=== PATIENT | male | born 1960 | race Caucasian/White ===

== ENCOUNTER 2023-06-16 00:16 | Emergency (ER) | payer OTHER, SELFPAY ==
[2023-06-16 00:21] VITALS: BP 140/71; PULSE 81; RESP 18; TEMP 36.7; O2SAT 99; BMI 43.9
--- NOTE | 2023-06-16 00:41 | ED.GENADUL1 ---
HPI - General Adult General Chief complaint: Upper Respiratory Infection Stated complaint: cough chest pain fall last week Time Seen by Provider: 06/16/23 00:20 Source: patient Mode of arrival: walk-in History of Present Illness HPI narrative: Patient fell last week and his work is requiring a note okaying him to go back to work. He did not hit his head or lose consciousness. He used he right wrist to break his fall and is using the right hand and wrist normally. His only complaint is a mild cough that started a few days ago. 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 Related Data Home Medications Medication Instructions Recorded Confirmed glimepiride 2 mg tablet 2 mg PO DAILY 06/16/23 06/16/23 meclizine 25 mg tablet 25 mg PO TID 06/16/23 06/16/23 metformin 1,000 mg tablet 1,000 mg PO DAILY 06/16/23 06/16/23 Allergies Allergy/AdvReac Type Severity Reaction Status Date / Time No Known Drug Allergies Allergy Verified 06/16/23 00:31 Exam Narrative Exam Narrative: Nurses notes and vital signs reviewed and patient is not hypoxic. afebrile General: Well-appearing and in no apparent distress. Skin: Warm, dry, no pallor noted. Head: Normocephalic, atraumatic. Neck: Supple, non-tender. no cervical lymphadenopathy Eye: Pupils are equal, round and EOMI. No scleral icterus. Ears, Nose, Mouth, and Throat: TM are clear, mild nasal mucosal hypertrophy. Oral mucosa is moist, no posterior oropharynx erythema, uvula is mid-line Cardiovascular: Regular Rate and Rhythm without murmur, gallop or rub. Respiratory: No accessory muscle use or respiratory distress. Lungs are clear to auscultation, no wheezing, rales or rhonchi Chest Wall: no tenderness Back: No midline thoracic or lumbar vertebral tenderness. No CVA tenderness Musculoskeletal: normal ROM, no calf or popliteal tenderness, no lower extremity edema/swelling GI: Abdomen is soft, non-distended. Normal bowel sounds. No tenderness to palpation. No rebound, guarding, or rigidity noted. Neurological: A&O x4. No cranial nerve dysfunction observed. No truncal ataxia. Moves all extremities. Sensation intact. Psychiatric: Cooperative and interactive. Normal mood and affect. Constitutional Vital Signs, click to edit/add: Last Vital Signs Temp 98.1 F 06/16/23 00:21 Pulse 81 06/16/23 00:21 Resp 18 06/16/23 00:21 BP 140/71 06/16/23 00:21 Pulse Ox 99 06/16/23 00:21 O2 Del Method Room Air 06/16/23 00:21 Course Vital Signs Vital signs: Vital Signs Temperature 98.1 F 06/16/23 00:21 Pulse Rate 81 06/16/23 00:21 Respiratory Rate 18 06/16/23 00:21 Blood Pressure 140/71 06/16/23 00:21 Pulse Oximetry 99 06/16/23 00:21 Oxygen Delivery Method Room Air 06/16/23 00:21 Temperature 98.1 F 06/16/23 00:21 Pulse Rate 81 06/16/23 00:21 Respiratory Rate 18 06/16/23 00:21 Blood Pressure 140/71 06/16/23 00:21 Pulse Oximetry 99 06/16/23 00:21 Oxygen Delivery Method Room Air 06/16/23 00:21 Medical Decision Making MDM Narrative Medical decision making narrative: patient has mild upper respiratory infection symptoms. He wants to take the Mucinex that he artery bottom and I'm okay with that. He does not have any findings consistent with worrisome infection. He also does not have any sign of worrisome injury. I cleared him to go back to work. Discharge Plan Discharge Chief Complaint: Upper Respiratory Infection Clinical Impression: Upper respiratory infection Patient Disposition: Home, Self-Care Time of Disposition Decision: 00:40 Prescriptions / Home Meds: No Action glimepiride 2 mg tablet 2 mg PO DAILY meclizine 25 mg tablet 25 mg PO TID metformin 1,000 mg tablet 1,000 mg PO DAILY Instructions: Upper Respiratory Infection (ED) Stand Alone Forms: Portal Instructions Referrals: MADELEINE MARCELINO [Primary Care Provider] - 1 week
--- NOTE | 2023-06-16 00:47 | PC.NURSE ---
patient c/o dry cough, states he gets it every year around this time. would like something to help
== END 2023-06-16 01:06 | disposition home or self-care (01) ==
PROVIDERS: Emergency Provider Emergency Medicine
DX: J06.9 Acute upper respiratory infection, unspecified (principal); Z79.899 Other long term (current) drug therapy; Z79.84 Long term (current) use of oral hypoglycemic drugs
CPT/HCPCS: 99281

== ENCOUNTER 2023-07-16 20:22 | Emergency (ER) | payer OTHER, SELFPAY ==
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
[2023-07-16 20:34] VITALS: BP 133/76; PULSE 89; RESP 18; TEMP 36.6; O2SAT 95; BMI 41.8
--- NOTE | 2023-07-16 21:43 | PC.NURSE ---
Bilateral legs discolored left is red, pulses palpated. Right calf measured 18 1/4 inches left measured 18 inches.
--- NOTE | 2023-07-16 21:46 | PC.NURSE ---
Denies pain at this time.
--- NOTE | 2023-07-16 21:48 | PC.NURSE ---
Small scabed woound posterior lower left leg with scant drainge
--- NOTE | 2023-07-16 22:14 | ED_ITS ---
HPI - Extremity Problem General Chief complaint: Extremity Problem, Nontraumatic Stated complaint: LE PAIN Time Seen by Provider: 07/16/23 20:34 Source: patient Mode of arrival: walk-in Limitations: no limitations History of Present Illness HPI Narrative: This 62-year-old male with a history of diabetes and peripheral vascular disease presents for evaluation of a draining wound from the back of his left lower leg. The patient states at times his legs swell up and then they open up and drain. He does not have any marked lower extremity edema but does have a draining wound from the posterior left calf. He denies any fever at this time but states he had a fever a couple days ago. He is not currently on any antibiotics. He has no chest pain or shortness of breath. He states his glucose has been in the normal range. Related Data Home Medications Medication Instructions Recorded Confirmed glimepiride 2 mg tablet 2 mg PO DAILY 06/16/23 06/16/23 meclizine 25 mg tablet 25 mg PO TID 06/16/23 06/16/23 metformin 1,000 mg tablet 1,000 mg PO DAILY 06/16/23 06/16/23 Allergies Allergy/AdvReac Type Severity Reaction Status Date / Time No Known Drug Allergies Allergy Verified 07/16/23 20:38 Review of Systems ROS Status of ROS 10 or more systems reviewed and unremark able except as noted in history and below Exam Narrative Exam Narrative: Nurses note and vital signs reviewed and patient is not hypoxic. General: Alert, nontoxic, overweight male resting comfortably on the stretcher Skin: Warm, dry, no pallor noted. See discussion of lower extremities in musculoskeletal section Head: Normocephalic, atraumatic Eye: Normal conjunctiva, no drainage, EOMI. PERRL Ears, Nose, Mouth, and Throat: oral mucosa is moist. Nares patent. Cardiovascular: Regular Rate and Rhythm S1S2, Respiratory: Patient is in no distress, no accessory muscle use, lungs are clear to auscultation, no wheezing, rales or rhonchi Back: non-tender, no CVA tenderness bilaterally to percussion. GI: Normal bowel sounds, no tenderness to palpation, no masses appreciated. No rebound, guarding, or rigidity noted. Musculoskeletal: There Is a large amount of peeling skin on the posterior lower leg. There is an open shallow-based ulcer on the posterior aspect of the left calf with a small amount of drainage noted. Feet are warm and pink. Neurological: A&O x4, normal speech Psychiatric: Cooperative Constitutional Vital Signs, click to edit/add: Last Vital Signs Temp 98 F 07/16/23 20:34 Pulse 74 07/16/23 23:23 Resp 16 07/16/23 23:23 BP 131/80 07/16/23 23:23 Pulse Ox 97 07/16/23 23:23 O2 Del Method Room Air 07/16/23 23:23 Course Vital Signs Vital signs: Vital Signs Temperature 98 F 07/16/23 20:34 Pulse Rate 89 07/16/23 20:34 Respiratory Rate 18 07/16/23 20:34 Blood Pressure 133/76 07/16/23 20:34 Pulse Oximetry 95 07/16/23 20:34 Oxygen Delivery Method Room Air 07/16/23 20:34 Temperature 98 F 07/16/23 20:34 Pulse Rate 74 07/16/23 23:23 Respiratory Rate 16 07/16/23 23:23 Blood Pressure 131/80 07/16/23 23:23 Pulse Oximetry 97 07/16/23 23:23 Oxygen Delivery Method Room Air 07/16/23 23:23 MDM - Extremity (Nontraumatic) MDM Narrative Medical decision making narrative: This 62-year-old male with a history of diabetes and peripheral edema presents for evaluation of drainage from the posterior aspect of his left leg. The patient states that his legs swell up and break open and drain. He has been having some drainage from the left leg for the past several days. He has been told in the past that he has severe peripheral vascular disease. He states his sugars have not been abnormal. In the emergency department he is eating Fritos. He denies any chest pain or shortness of breath. There was an open area of skin that I would not qualify as an abscess on the posterior aspect of the left leg. This was cultured, the leg was cleaned and a sterile dressing was placed by the nursing staff. The patient was given IV Unasyn in the emergency department and routine labs are ordered. His white count is mildly elevated at 12. Glucose is elevated at 314. The remainder of his labs are normal including a lactic acid. BLood cultures and wound cultures are pending. He will be referred to the wound clinic at this hospital and referred to Dr Villareal, medicine gate person as his PCP recently stopped seeing patients. Lab Data Labs: Lab Results 07/16/23 Range/Units 21:58 WBC 12.2 H (4.0-11.0) 10^3/uL RBC 4.86 (4.70-6.10) 10^6/uL Hgb 15.5 (14.0-18.0) g/dL Hct 47.1 (42.0-54.0) % MCV 96.9 H (80.0-94.0) fL MCH 31.9 (25.9-34.0) pg MCHC 32.9 (29.9-35.2) g/dL RDW 14.3 (11.0-15.0) % Plt Count 315 (150-450) 10^3/uL MPV 10.7 (9.5-13.5) fL Neut % (Auto) 68.3 (43.0-75.0) % Lymph % (Auto) 20.0 L (20.5-60.0) % Dickey % (Auto) 8.3 (1.7-12.0) % Eos % (Auto) 2.2 (0.9-7.0) % Baso % (Auto) 0.5 (0.2-2.0) % Neut # (Auto) 8.3 H (1.4-6.5) 10^3/uL Lymph # (Auto) 2.4 (1.2-3.8) 10^3/uL Dickey # (Auto) 1.0 H (0.3-0.8) 10^3/uL Eos # (Auto) 0.3 (0.0-0.7) 10^3/uL Baso # (Auto) 0.1 (0.0-0.1) 10^3/uL Abs Immat Gran (auto) 0.08 H (0.00-0.03) 10^3/uL Imm/Tot Granulo (auto) 0.7 H (0.0-0.5) % Sodium 133 L (136-145) mmol/L Potassium 4.0 (3.5-5.1) mmol/L Chloride 98 (98-107) mmol/L Carbon Dioxide 29.1 (21.0-32.0) mmol/L Anion Gap 9.9 BUN 16.0 (7.0-18.0) mg/dL Creatinine 1.07 (0.70-1.30) mg/dL Est GFR ( Amer) >60 (>=60) Est GFR (Non-Af Amer) >60 (>=60) BUN/Creatinine Ratio 15.0 Glucose 314 H (74-106) mg/dL Lactate 1.6 (0.4-2.0) mmol/L Calcium 10.0 (8.5-10.1) mg/dL Total Bilirubin 0.5 (0.2-1.0) mg/dL AST 10 L (15-37) U/L ALT 21 (16-63) U/L Alkaline Phosphatase 92 (46-116) U/L Total Protein 6.9 (6.4-8.2) g/dL Albumin 2.6 L (3.4-5.0) g/dL Globulin 4.3 g/dL Albumin/Globulin Ratio 0.6 Discharge Plan Discharge Chief Complaint: Extremity Problem, Nontraumatic Clinical Impression: Cellulitis of left leg, Hyperglycemia, Edema, peripheral Patient Disposition: Home, Self-Care Time of Disposition Decision: 23:35 Condition: Good Prescriptions / Home Meds: No Action glimepiride 2 mg tablet 2 mg PO DAILY meclizine 25 mg tablet 25 mg PO TID metformin 1,000 mg tablet 1,000 mg PO DAILY Instructions: Cellulitis (ED), Leg Edema (ED), Diabetic Hyperglycemia (ED) Stand Alone Forms: Portal Instructions Referrals: Physician,Non-Staff, [Primary Care Provider] - 1 week Shaikh Villareal MD [Physician] - 1 week (Lower extremity edema and cellulitis)
[2023-07-16 22:21] LABS: Basophils Absolute Auto 0.1 10^3/uL (0.0-0.1); Basophils Percent Auto 0.5 % (0.2-2.0); Eosinophils Absolute Auto 0.3 10^3/uL (0.0-0.7); Eosinophils Percent Auto 2.2 % (0.9-7.0); Hematocrit 47.1 % (42.0-54.0); Hemoglobin 15.5 g/dL (14.0-18.0); Immature Granulocytes Abs Auto 0.08 10^3/uL (0.00-0.03); Immature Granulocytes Pct Auto 0.7 % (0.0-0.5); Lymphocytes Absolute Auto 2.4 10^3/uL (1.2-3.8); Mean Corpuscular HGB Conc 32.9 g/dL (29.9-35.2); Mean Corpuscular Hemoglobin 31.9 pg (25.9-34.0); Mean Corpuscular Volume 96.9 fL (80.0-94.0); Mean Platelet Volume 10.7 fL (9.5-13.5); Monocytes Percent Auto 8.3 % (1.7-12.0); Neutrophils Absolute Auto 8.3 10^3/uL (1.4-6.5); Neutrophils Percent Auto 68.3 % (43.0-75.0); Platelet Count 315 10^3/uL (150-450); Red Blood Count 4.86 10^6/uL (4.70-6.10); Red Cell Distribution Width 14.3 % (11.0-15.0); White Blood Count 12.2 10^3/uL (4.0-11.0)
[2023-07-16 22:36] LABS: Alanine Aminotransferase 21 U/L (16-63); Albumin Globulin Ratio 0.6; Albumin Level 2.6 g/dL (3.4-5.0); Alkaline Phosphatase 92 U/L (46-116); Anion Gap 9.9; Aspartate Amino Transferase 10 U/L (15-37); Bilirubin Total 0.5 mg/dL (0.2-1.0); Carbon Dioxide 29.1 mmol/L (21.0-32.0); Chloride 98 mmol/L (98-107); Estimated GFR (African America >60 (>=60); Estimated GFR (Non-African Ame >60 (>=60); Globulin 4.3 g/dL; Glucose 314 mg/dL (74-106); Sodium 133 mmol/L (136-145); Total Protein 6.9 g/dL (6.4-8.2)
[2023-07-16] MEDS: AMPICILLIN SODIUM/SULBACTAM NA 3 GM in 0.9 % SODIUM CHLORIDE 100 ML IV (22:37)
[2023-07-16 22:39] LABS: Lactate/Lactic Acid 1.6 mmol/L (0.4-2.0)
[2023-07-16 23:23] VITALS: BP 131/80; PULSE 74; RESP 16; O2SAT 97
== END 2023-07-16 23:56 | disposition home or self-care (01) ==
PROVIDERS: Emergency Provider Emergency Medicine
DX: L03.116 Cellulitis of left lower limb (principal); E11.51 Type 2 diabetes mellitus with diabetic peripheral angiopathy without gangrene; Z79.84 Long term (current) use of oral hypoglycemic drugs; E11.65 Type 2 diabetes mellitus with hyperglycemia; R60.0 Localized edema
CPT/HCPCS: 36415; 80053; 83605; 85025; 87070; 87150; 87186; 96365; 99285

== ENCOUNTER 2024-03-24 11:00 | Inpatient (IN) | payer OTHER, SELFPAY ==
[2024-03-24] VITALS (10 sets, daily range): BP systolic 103–143; BP diastolic 66–84; PULSE 85–102; TEMP 36.7–36.9; O2SAT 80–100; BMI 41.8; BMI 39.4
--- NOTE | 2024-03-24 11:15 | ECG_ITS ---
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
--- NOTE | 2024-03-24 11:15 | XR_ITS ---
The [address] [address] Patient Name: TYLER SMITH MRN: [id number] date: 1960 Sex: M Assigned Patient Location: ER Current Patient Location: ED.MAIN Accession/Order Number: [id number] Exam Date: 03/24/2024 11:40 Report Date: 03/24/2024 12:10 At the request of: KENIA PLUNKETT Procedure: XR chest 1V EXAMINATION: XR chest 1V HISTORY: sob COMPARISON: XR chest 10/04/2016 FINDINGS: LUNGS: Minimal haziness and stranding within lung bases. VASCULATURE: No increased pulmonary vasculature. PLEURA: No pneumothorax, effusion, or pleural thickening. CARDIAC: No cardiomegaly or cardiac silhouette abnormality. MEDIASTINUM: No visible mass or adenopathy. BONES: No fracture or visible bone lesion. OTHER: Negative. XR/XR chest 1V IMPRESSION: 1. Trace amount of bibasilar infiltrates versus atelectasis. Electronically authenticated by: ARIC DODSON Date: 03/24/2024 12:10
--- NOTE | 2024-03-24 11:15 | XR_ITS ---
The [address] [address] Patient Name: TYLER SMITH MRN: [id number] date: 1960 Sex: M Assigned Patient Location: ER Current Patient Location: ER Accession/Order Number: [id number] Exam Date: 03/24/2024 11:40 Report Date: 03/24/2024 12:13 At the request of: KENIA PLUNKETT Procedure: XR foot RT min 3V PROCEDURE: XR foot RT min 3V HISTORY: infection ; first digit pain for one week; no known injury COMPARISON: None. FINDINGS: BONES:No fracture, acute abnormality, or significant arthropathy. SOFT TISSUES:Soft tissue swelling of the foot. Suspected skin surface defect medial to the first metatarsophalangeal joint. EFFUSION:None visible. OTHER: Negative. XR/XR foot RT min 3V IMPRESSION: 1. No acute bone abnormality or significant degenerative joint disease. 2. Prominent soft tissue swelling with foot and suspected ulcer medial to the first metatarsophalangeal joint. No underlying bone changes to suggest osteomyelitis. Electronically authenticated by: ARIC DODSON Date: 03/24/2024 12:13
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
--- NOTE | 2024-03-24 11:31 | US_ITS ---
The [address] [address] Patient Name: TYLER SMITH MRN: [id number] date: 1960 Sex: M Assigned Patient Location: [place] Current Patient Location: [place] Accession/Order Number: [id number] Exam Date: 03/24/2024 15:00 Report Date: 03/24/2024 17:08 At the request of: KENIA PLUNKETT Procedure: US venous doppler LE BI EXAM: US venous doppler LE BI HISTORY: swelling COMPARISON: None. TECHNIQUE: Multiple sonographic images of the deep veins of both lower extremities were obtained, supplemented with Doppler. FINDINGS: The deep veins are relatively well-visualized the groin to the mid calf. No filling defect is identified to indicate a thrombus. There is normal compression augmentation to flow bilaterally. US/US venous doppler LE BI IMPRESSION: There is no direct or indirect evidence of deep vein thrombosis in the lower extremities at this time. Electronically authenticated by: CURT GOMEZ Date: 03/24/2024 17:08
[2024-03-24] MEDS: 0.9 % SODIUM CHLORIDE 500 ML IV (11:33)
[2024-03-24] MEDS: KETOROLAC TROMETHAMINE 30 MG/ML VIAL 15 MG IVP (11:33)
[2024-03-24 11:37] LABS: Hematocrit 54.6 % (42.0-54.0); Hemoglobin 18.5 g/dL (14.0-18.0); Mean Corpuscular HGB Conc 33.9 g/dL (29.9-35.2); Mean Corpuscular Hemoglobin 31.9 pg (25.9-34.0); Mean Corpuscular Volume 94.1 fL (80.0-94.0); Mean Platelet Volume 11.3 fL (9.5-13.5); Platelet Count 227 10^3/uL (150-450); Red Cell Distribution Width 14.2 % (11.0-15.0); White Blood Count 21.5 10^3/uL (4.0-11.0)
[2024-03-24 11:53] LABS: INR 1.07; Prothrombin Time 11.3 sec (9.0-11.6)
[2024-03-24] MEDS: VANCOMYCIN HCL 2,000 MG in 0.9 % SODIUM CHLORIDE 500 ML 250 MG IV (11:55)
[2024-03-24 11:57] LABS: Band Neutrophils Absolute 0.9 10^3/uL (0.0-0.3); Lymphocytes Absolute Manual 1.07 10^3/uL (1.20-3.80); Monocytes Absolute Manual 3.22 10^3/uL (0.30-0.80); Segmented Neut Absolute Manual 16.34 10^3/uL (1.4-6.5)
[2024-03-24 12:15] LABS: Lactate/Lactic Acid 1.3 mmol/L (0.4-2.0)
--- NOTE | 2024-03-24 12:15 | ED_ITS ---
HPI HPI - General Adult General Chief complaint: Extremity Problem, Nontraumatic Stated complaint: LOWER RIGHT EXTREMITY PAIN, SWELLING Time Seen by Provider: 03/24/24 11:01 Source: patient Mode of arrival: walk-in Limitations: no limitations History of Present Illness HPI narrative: Patient presents ED complaining of right foot pain and redness. He said he spiked a fever on Friday and he has been having chills. He said he noticed that his right foot blew out Over the weekend and he thought it was from the fever. He is diabetic. She has not seen a doctor in a while since his doctor retired. He is taking his metformin but he is supposed to be on other medications that he is not taking. He is a smoker and has chronic shortness of breath although he came in very winded. He reports pain in the foot and just wants us to fix his foot. He was upset when I told him we would need to do more testing and further investigation because his foot looks very bad and he is at risk for losing his foot. He does also have chronic vascular changes and chronic skin changes on the left foot. He denies nausea vomiting or abdominal pain Related Data Home Medications ?Medication ?Instructions ?Recorded ?Confirmed glimepiride 2 mg tablet 2 mg PO DAILY 06/16/23 03/24/24 meclizine 25 mg tablet 25 mg PO TID 06/16/23 03/24/24 metformin 1,000 mg tablet 1,000 mg PO DAILY 06/16/23 03/24/24 Allergies Allergy/AdvReac Type Severity Reaction Status Date / Time No Known Drug Allergies Allergy Verified 03/24/24 11:06 Opioid HPI Opioid Management Most Recent Opioid Data: Last Pain Scale 0 07/16/23 21:46 Review of Systems ROS Status of ROS 10 or more systems reviewed and unremark able except as noted in history and below Exam Narrative Exam Narrative: Time Seen: [] Vital Signs: [Per nurse's notes.] General: [Alert] Skin: [Warm, dry, Erythema in the right lower extremity from foot to knee. Red hot tender swollen. Normal distal pulses. Large area of ulceration around the first metatarsal joint Head: [Normocephalic, atraumatic.] Neck: [Supple, trachea midline.] Eye: [Pupils are equal, round and reactive to light, extraocular movements are intact, normal conjunctiva.] Ears, nose, mouth and throat: oral mucosa moist. Cardiovascular: [Regular rate and rhythm, no murmur.] Respiratory: Inspiratory expiratory wheezing bilaterally With tachypnea and mild respiratory distress Chest wall: [No tenderness, no deformity.] Gastrointestinal: [Obese,Soft, nontender, non distended, normal bowel sounds.] MSK: 5 out of 5 muscle strength x 4 extremities. Bilateral lower extremity discoloration consistent with vascular changes as well as cellulitis on the right with wound ulceration in the right metatarsal Psychiatric: Agitated, slightly uncooperative, angry Neurological: [Alert and oriented to person, place, time, and situation, no focal neurological deficit observed.] Constitutional Vital Signs, click to edit/add: Last Vital Signs Temp 98.1 F 03/24/24 11:06 Pulse 85 03/24/24 13:07 Resp 18 03/24/24 13:07 BP 120/82 03/24/24 13:07 Pulse Ox 92 L 03/24/24 13:07 O2 Del Method Room Air 03/24/24 12:09 O2 Flow Rate 2 03/24/24 13:07 Course Vital Signs Vital signs: Vital Signs Temperature 98.1 F 03/24/24 11:06 Pulse Rate 102 H 03/24/24 11:06 Respiratory Rate 24 H 03/24/24 11:06 Blood Pressure 121/84 03/24/24 11:06 Pulse Oximetry 92 L 03/24/24 11:06 Oxygen Delivery Method Room Air 03/24/24 11:06 Temperature 98.1 F 03/24/24 11:06 Pulse Rate 85 03/24/24 13:07 Respiratory Rate 18 03/24/24 13:07 Blood Pressure 120/82 03/24/24 13:07 Pulse Oximetry 92 L 03/24/24 13:07 Oxygen Delivery Method Room Air 03/24/24 12:09 Oxygen Delivery Flow Rate 2 03/24/24 13:07 Medical Decision Making MDM Narrative Medical decision making narrative: Patient has an ulcerated wound to the right foot with extensive cellulitis. Patient will be admitted to the hospital for IV antibiotics and podiatry consultation. Patient is diabetic and is uncontrolled at this time. He has a white blood cell count of 21. Lactate is normal therefore no sepsis at this time. I spoke to Dr. Lynn who is comfortable with care plan to admit the patient for further care for his cellulitis and possible surgical debridement of the foot with Podiatry consultation. Patient is comfortable with care plan for admission Differential Diagnosis Differential Diagnosis: Cellulitis osteomyelitis DVT Medical Records Medical records reviewed: Yes I reviewed the patient's medical records Lab Data Lab results reviewed: Yes I reviewed the patient's lab results Labs: Lab Results 03/24/24 Range/Units 11:15 WBC 21.5 H (4.0-11.0) 10^3/uL RBC 5.80 (4.70-6.10) 10^6/uL Hgb 18.5 H (14.0-18.0) g/dL Hct 54.6 H (42.0-54.0) % MCV 94.1 H (80.0-94.0) fL MCH 31.9 (25.9-34.0) pg MCHC 33.9 (29.9-35.2) g/dL RDW 14.2 (11.0-15.0) % Plt Count 227 (150-450) 10^3/uL MPV 11.3 (9.5-13.5) fL Seg Neuts % (Manual) 76.0 H (43.0-75.0) Band Neutrophils % 4.0 (0-5) % Lymphocytes % (Manual) 5.0 L (20.5-60.0) % Monocytes % (Manual) 15.0 H (1.7-12.0) % Eosinophils % (Manual) 0.0 L (0.9-7.0) % Basophils % (Manual) 0.0 L (0.2-2.0) % Neutrophils # (Manual) 16.34 H (1.4-6.5) 10^3/uL Band Neutrophils # 0.9 H (0.0-0.3) 10^3/uL Lymphocytes # (Manual) 1.07 L (1.20-3.80) 10^3/uL Monocytes # (Manual) 3.22 H (0.30-0.80) 10^3/uL Eosinophils # (Manual) 0.00 (0.00-0.70) 10^3/uL Basophils # (Manual) 0.00 (0.00-0.10) 10^3/uL PT 11.3 (9.0-11.6) sec INR 1.07 Sodium 131 L (136-145) mmol/L Potassium 4.2 (3.5-5.1) mmol/L Chloride 93 L (98-107) mmol/L Carbon Dioxide 25.5 (21.0-32.0) mmol/L Anion Gap 16.7 BUN 18.0 (7.0-18.0) mg/dL Creatinine 1.10 (0.70-1.30) mg/dL Est GFR ( Amer) >60 (>=60) Est GFR (Non-Af Amer) >60 (>=60) BUN/Creatinine Ratio 16.4 Glucose 381 H (74-106) mg/dL Lactate 1.3 (0.4-2.0) mmol/L Calcium 10.1 (8.5-10.1) mg/dL Total Bilirubin 2.4 H (0.2-1.0) mg/dL AST 16 (15-37) U/L ALT 18 (16-63) U/L Alkaline Phosphatase 114 (46-116) U/L Troponin I High Sens 4.9 (4.0-76.1) pg/mL NT-Pro-B Natriuret Pep 674.0 (<=900.0) pg/mL Total Protein 7.4 (6.4-8.2) g/dL Albumin 2.3 L (3.4-5.0) g/dL Globulin 5.1 g/dL Albumin/Globulin Ratio 0.5 Imaging Data Chest x-ray: Radiologist's impression: ITS Impressions Chest X-Ray 03/24/24 11:15 IMPRESSION: 1. Trace amount of bibasilar infiltrates versus atelectasis. Electronically authenticated by: ARIC DODSON Date: 03/24/2024 12:10 Foot X-Ray 03/24/24 11:15 IMPRESSION: 1. No acute bone abnormality or significant degenerative joint disease. 2. Prominent soft tissue swelling with foot and suspected ulcer medial to the first metatarsophalangeal joint. No underlying bone changes to suggest osteomyelitis. Electronically authenticated by: ARIC DODSON Date: 03/24/2024 12:13 ECG Data Attestation: I personally reviewed and interpreted this ECG as follows: Interpretation: EKG INTERPRETATION Time: []1124 Rate: []95 Rhythm: _ []Normal sinus rhythm ST segments: _ []No acute ST elevation or depression T waves: _ [] Ectopy: _ [] P wave/WA interval: _ [] QRS interval: _ [] QT interval: _ [] Comparison: _ [] Comparison EKG date: [] Performed by: [self] Discharge Plan Discharge Chief Complaint: Extremity Problem, Nontraumatic Clinical Impression: Cellulitis Patient Disposition: Admitted As Inpatient Time of Disposition Decision: 13:22 Condition: Fair Prescriptions / Home Meds: No Action glimepiride 2 mg tablet 2 mg PO DAILY meclizine 25 mg tablet 25 mg PO TID metformin 1,000 mg tablet 1,000 mg PO DAILY Print Language: Faroese Referrals: Physician,Non-Staff, MD [Primary Care Provider] - 1 week
[2024-03-24 12:19] LABS: Alanine Aminotransferase 18 U/L (16-63); Albumin Globulin Ratio 0.5; Alkaline Phosphatase 114 U/L (46-116); Aspartate Amino Transferase 16 U/L (15-37); BUN Creatinine Ratio 16.4; Bilirubin Total 2.4 mg/dL (0.2-1.0); Calcium 10.1 mg/dL (8.5-10.1); Chloride 93 mmol/L (98-107); Estimated GFR (African America >60 (>=60); Estimated GFR (Non-African Ame >60 (>=60); Globulin 5.1 g/dL; Glucose 381 mg/dL (74-106); Potassium 4.2 mmol/L (3.5-5.1); Sodium 131 mmol/L (136-145); Total Protein 7.4 g/dL (6.4-8.2); Troponin I High Sensitivity 4.9 pg/mL (4.0-76.1)
[2024-03-24 12:28] LABS: Albumin Level 2.3 g/dL (3.4-5.0)
[2024-03-24 12:59] LABS: Anion Gap 16.7; Carbon Dioxide 25.5 mmol/L (21.0-32.0)
[2024-03-24 13:25] LABS: Erythrocyte Sedimentation Rate 82 mm/hr (<=20)
[2024-03-24 13:38] LABS: C Reactive Protein 29.08 mg/dL (<=0.50)
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
--- NOTE | 2024-03-24 14:35 | W.PM.WC_ITS ---
Wound Consult Note Assessment and Plan (1) Cellulitis: Plan right medial foot open ulcer with cellulitis Patient admitted to hospital today, currently in bed with bedside RN doing admission process. He has noted red, warmth, cellulitis to right lower leg with open ulceration to the right medial 1st MPJ site that wraps to the plantar foot. Appears to have been a blister that opened. Skin around ulceration is loose. There is fluctuance to the wound bed that, when probed with cotton tipped applicator, does have purulent drainage. There is an order for a wound culture that was taken after cleansing the ulcer. His foot is extremely dirty with animal hair noted in the dried drainage and in- between his toes. Foot cleansed with soap and water. Rinsed well and patted dry. Wound measurement 7.8cmx3.2cmx0.3cm. No bone noted, however, the wound bed is covered with devitalized tissue. Applied calcium alginate dressing as well as nivia wrap to his right foot. Updated Dr. Curtis on his labs and xray results. Photos in chart Orders in chart Please call [phone] for any questions or concerns. Dru Reyes, DAVID, CWON
--- NOTE | 2024-03-24 15:24 | SWNOTE1 ---
SW met with pt to discuss dc needs. Pt lives at home alone, voiced he has someone that can help as needed. Pt is independent, still drives and goes to the grocery store. Pt does have a walker/cane at home if needed. SW asked pt about a PCP? Pt voiced he was going to see Dr. Juarez, but voiced when Dr. Juarez left he did not let anyone know what the plan was, etc. Pt now plans on seeing Dr. Guzman, he has not seen him yet, but voiced that is his new PCP. At this time unsure of dc needs. SW to follow as needed.
--- NOTE | 2024-03-24 15:27 | SWNOTE1 ---
Important Message from [employer] reviewed and discussed with patient. Pt. verbalized understanding and signed the form. Original given to patient and copy placed in patient?s chart.
--- NOTE | 2024-03-24 15:35 | P.HP_ITS ---
HPI H&P: HPI History of Present Illness Chief complaint: LOWER RIGHT EXTREMITY PAIN, SWELLING, R FOOT Narrative: She presented to the emergency room with increasing right leg pain and swelling. Mostly in his foot. He is a very brittle diabetic at home. In ER found have significant cellulitis. This is of the right lower extremity. This would be a diabetic complication. When I saw patient up on the medical surgical floor, we discussed his foot pain and of the has progressed fairly rapidly. But he also significant cough throughout the evaluation. Opioid HPI Opioid Management Most Recent Pain and Opioid Data: Last Pain Scale 0 07/16/23 21:46 Last Pain Assessment 03/24/24 17:47 Last ORT Total Score 0 03/24/24 13:48 Last ORT Risk Category Low Risk 03/24/24 13:48 Review of Systems ROS Status of ROS 10 or more systems reviewed and unremark able except as noted in history and below [facility] Medical History Dizziness ?R42 - Dizziness and giddiness (ICD-10) Diabetes ?E11.9 - Type 2 diabetes mellitus without complications (ICD-10) Surgical History H/O hernia repair ?Z98.890 - Other specified postprocedural states (ICD-10) ?Z87.19 - Personal history of other diseases of the digestive system (ICD-10) History of tonsillectomy ?Z90.89 - Acquired absence of other organs (ICD-10) History of appendectomy ?Z90.49 - Acquired absence of other specified parts of digestive tract (ICD- 10) Family History Grandfather Family history of CHF (congestive heart failure) Family history of diabetes mellitus Family history of hypertension Family history of myocardial infarction Family history of stroke Mother Family history of cancer Social History Within the past year, how often did you have a drink containing alcohol: never Score interpretation: A score less than 4 is consistent with normal alcohol consumption. 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 Highest level of school completed/degree received: GED or equivalent Are you now , , , , never or living with a partner: Little interest or pleasure in doing things: not at all Feeling down, depressed, or hopeless: not at all Feel stressed/tense/nervous/anxious/difficulty sleeping: not at all Meds Home Medications and Allergies Home Medications ?Medication ?Instructions ?Recorded ?Confirmed ?Type glimepiride 2 mg tablet 2 mg PO DAILY 06/16/23 03/24/24 History meclizine 25 mg tablet 25 mg PO TID PRN dizziness 06/16/23 03/24/24 History metformin 1,000 mg tablet 1,000 mg PO DAILY 06/16/23 03/24/24 History Allergies Allergy/AdvReac Type Severity Reaction Status Date / Time No Known Drug Allergies Allergy Verified 03/24/24 11:06 Exam Constitutional Vital Signs, click to edit/add: Last Vital Signs Temp 98.4 F 03/24/24 13:48 Pulse 86 03/24/24 13:48 Resp 20 03/24/24 13:48 BP 103/69 03/24/24 13:48 Pulse Ox 92 L 03/24/24 13:48 O2 Del Method Nasal Cannula 03/24/24 13:48 O2 Flow Rate 4 03/24/24 13:48 Documenting provider has reviewed patient's vital signs: yes Common normals: apparent distress (Stational dyspnea) Chest Common normals: inspection of chest normal Respiratory Effort & inspection: tachypneic and respiratory distress Auscultation: rhonchi Cardio Common normals: regular rate, regular rhythm and no murmurs GI Common normals: Normal to inspection, nondistended, normoactive bowel sounds present Extremity Common normals: abnormal to inspection (Right lower extremity with large dressing in place, varicosities right lowe) Other: Erythema currently at the line of demarcation Results Labs Labs: Short CBC 03/24/24 Range/Units 11:15 WBC 21.5 H (4.0-11.0) 10^3/uL Hgb 18.5 H (14.0-18.0) g/dL Hct 54.6 H (42.0-54.0) % Plt Count 227 (150-450) 10^3/uL BMP 03/24/24 11:15 Sodium 131 L Potassium 4.2 Chloride 93 L Carbon Dioxide 25.5 BUN 18.0 Creatinine 1.10 Glucose 381 H Calcium 10.1 Liver Function 03/24/24 Range/Units 11:15 Total Bilirubin 2.4 H (0.2-1.0) mg/dL AST 16 (15-37) U/L ALT 18 (16-63) U/L Alkaline Phosphatase 114 (46-116) U/L Albumin 2.3 L (3.4-5.0) g/dL Assessment and Plan Assessment and Plan (1) Cellulitis: (2) Edema, peripheral: (3) Upper respiratory infection: Plan Admission findings: Leukocytosis with white blood cell count greater than 20,000 secondary to cellulitis right lower extremity this is a complication of his diabetes. Consult to podiatry Cellulitis right lower extremity resulting in sepsis (tachypnea, leukocytosis, source of infection)-IV antibiotics vancomycin and Zosyn, consult to podiatry, this is a diabetic foot wound. Blood cultures pending. With leukocytosis, repe at labs in a.m. Poorly controlled diabetes mellitus-Place patient on insulin sliding scale Acute exacerbation of COPD with acute hypoxia with O2 sat less than 90% and tachypnea.-try to obtain sputum culture, aerosol treatments, IV antibiotics as outlined above for the cellulitis would cover anything in his lungs. Holding off on steroids secondary to the poorly controlled diabetes mellitus Admission status: Acute exacerbation of COPD with severe diabetic foot wound- plan per podiatry, IV antibiotics for several days. Medically necessary treatment will span more than 2 midnights. Inpatient status.
[2024-03-24 16:02] LABS: Glucometer 328 mg/dL (74-106)
[2024-03-24] MEDS: PIPERACILLIN SODIUM/TAZOBACTAM 3.375 GM in 0.9 % SODIUM CHLORIDE 50 ML IV ×2 (16:12→23:28)
--- NOTE | 2024-03-24 16:18 | RESP.RT ---
Refused to wear oxygen until after dinner
--- NOTE | 2024-03-24 19:47 | P.CN_ITS ---
Consult Note: [facility] Data of Consult Consult date: 03/24/24 Requesting Physician: Darell Lynn MD Primary Care Provider: Non-Staff Physician, Consult Narrative Reason for consult: Right foot infection Narrative: Patient seen at bedside. He relates that the wound on his right plantar medial foot began on 03/19/2024 then he noticed redness and swelling but was limited to his great toe on Friday. He related today the redness had extended up his leg and was having some discomfort. He states he is a little nauseous but no vomiting. He relates that he did feel feverish but did not take his temperature on Friday and also admits to chills. He relates that he ate dinner couple hours ago and just in general does not feel well. He relates that he has had a wound on his foot before but has never gotten this infected. He denies any known trauma. Currently he has no pain. He does have chronic COPD as well and is an active smoker. He is currently on oxygen. He relates to not seeing a doctor in some time and not being compliant with medications. He does not routinely see a commercial producer. Upon presentation lactate was within normal limits, WBC 21.5, ESR 82, CRP 29, glucose 381. X-ray demonstrates a wound on the medial forefoot without soft tissue gas or bony erosion. Venous Doppler was negative for DVT. Vital signs currently blood pressure 103/69: Pulse 86: Respirations 20: Temperature 98.4: O2 sat 100 on 4 L. He was admitted to Dr. Lynn who consulted me. cc:: CC: Darell Lynn MD Review of Systems ROS Status of ROS 10 or more systems reviewed and unremark able except as noted in history and below [facility] Medical History Dizziness ?R42 - Dizziness and giddiness (ICD-10) Diabetes ?E11.9 - Type 2 diabetes mellitus without complications (ICD-10) Surgical History H/O hernia repair ?Z98.890 - Other specified postprocedural states (ICD-10) ?Z87.19 - Personal history of other diseases of the digestive system (ICD-10) History of tonsillectomy ?Z90.89 - Acquired absence of other organs (ICD-10) History of appendectomy ?Z90.49 - Acquired absence of other specified parts of digestive tract (ICD- 10) Family History Grandfather Family history of CHF (congestive heart failure) Family history of diabetes mellitus Family history of hypertension Family history of myocardial infarction Family history of stroke Mother Family history of cancer Social History Within the past year, how often did you have a drink containing alcohol: never Score interpretation: A score less than 4 is consistent with normal alcohol consumption. 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 Highest level of school completed/degree received: GED or equivalent Are you now , , , , never or living with a partner: Little interest or pleasure in doing things: not at all Feeling down, depressed, or hopeless: not at all Feel stressed/tense/nervous/anxious/difficulty sleeping: not at all Meds Home Medications and Allergies Home Medications ?Medication ?Instructions ?Recorded ?Confirmed ?Type glimepiride 2 mg tablet 2 mg PO DAILY 06/16/23 03/24/24 History meclizine 25 mg tablet 25 mg PO TID PRN dizziness 06/16/23 03/24/24 History metformin 1,000 mg tablet 1,000 mg PO DAILY 06/16/23 03/24/24 History Allergies Allergy/AdvReac Type Severity Reaction Status Date / Time No Known Drug Allergies Allergy Verified 03/24/24 11:06 Exam Narrative Exam Narrative: Examination of the right foot wound located on the plantar medial aspect of the first metatarsal head with erythema extending from the great toe and encompassing the dorsal foot, anterior ankle and to the proximal leg. The foot is severely swollen. Mild malodor. No fluctuance or purulent drainage but severe swelling. No crepitus in the soft tissues. Vascular: Nonpalpable pedal pulses on the right and faintly palpable on the left. Absent digital hair. MSK:No obvious deformity of the right foot. Patient is able to fire all muscle groups without pain. No pain on palpation and no pain with active or passive range of motion of the toes. Neuro: Absent protective and vibratory sensation. Constitutional Vital Signs, click to edit/add: Last Vital Signs Temp 98.4 F 03/24/24 13:48 Pulse 86 03/24/24 13:48 Resp 20 03/24/24 13:48 BP 103/69 03/24/24 13:48 Pulse Ox 89 L 03/24/24 16:11 O2 Del Method Room Air 03/24/24 16:11 O2 Flow Rate 4 03/24/24 13:48 Results Labs Labs: Short CBC 03/24/24 Range/Units 11:15 WBC 21.5 H (4.0-11.0) 10^3/uL Hgb 18.5 H (14.0-18.0) g/dL Hct 54.6 H (42.0-54.0) % Plt Count 227 (150-450) 10^3/uL BMP 03/24/24 03/24/24 03/24/24 11:15 11:15 11:15 Sodium 131 L Cancelled Potassium 4.2 Cancelled Chloride 93 L Carbon Dioxide BUN Creatinine Glucose Calcium 03/24/24 03/24/24 03/24/24 11:15 11:15 11:15 Sodium Potassium Chloride Cancelled Carbon Dioxide 25.5 Cancelled BUN 18.0 Cancelled Creatinine 1.10 Glucose Calcium 03/24/24 03/24/24 03/24/24 11:15 11:15 11:15 Sodium Potassium Chloride Carbon Dioxide BUN Creatinine Cancelled Glucose 381 H Cancelled Calcium 10.1 Cancelled Liver Function 03/24/24 03/24/24 03/24/24 Range/Units 11:15 11:15 11:15 Total Bilirubin 2.4 H Cancelled (0.2-1.0) mg/dL AST 16 Cancelled (15-37) U/L ALT 18 (16-63) U/L Alkaline Phosphatase (46-116) U/L Albumin (3.4-5.0) g/dL 03/24/24 03/24/24 03/24/24 Range/Units 11:15 11:15 11:15 Total Bilirubin (0.2-1.0) mg/dL AST (15-37) U/L ALT Cancelled (16-63) U/L Alkaline Phosphatase 114 Cancelled (46-116) U/L Albumin 2.3 L Cancelled (3.4-5.0) g/dL Assessment and Plan Assessment and Plan (1) Cellulitis: Assessment and Plan: Cellulitis extending from toes to the proximal leg. Qualifiers: Site of cellulitis: extremity Site of cellulitis of extremity: lower extremity Laterality: right Qualified Code(s): L03.115 - Cellulitis of right lower limb (2) Edema, peripheral: (3) Upper respiratory infection: (4) Abscess of right foot: Assessment and Plan: Although there is no fluctuance on exam or carter purulent drainage the severe swelling and erythema as well as the rapid onset of his infection make abscess very likely. (5) Acute osteomyelitis of right foot: Assessment and Plan: X-ray is negative for bony erosion however the severe elevations in inflammatory markers and white blood cell count are concerning for acute bone infection. Debridement will help determine depth of infection (6) Type 2 diabetes mellitus with diabetic polyneuropathy: Plan Patient seen and evaluated and patient education provided. I explained the seriousness of the patient's problem that it is now limb and potentially life- threatening. I recommended incision and drainage with debridement of his wound in the operating room. Patient recently ate and was drinking pop upon my presentation therefore surgery will be planned for tomorrow. Consent was filled out and placed in chart N.p.o. after midnight Cover wound with 4 x 4 gauze and Jone wrap/Kerlix Will follow Dr. Lynn and nursing documentation supervisor, Ileana, were made aware of the plan
[2024-03-24 20:41] LABS: Glucometer 507 mg/dL (74-106)
[2024-03-24 21:44] LABS: Glucometer 433 mg/dL (74-106)
[2024-03-24] MEDS: JUVEN PACKET 1 PACKET PO (21:44)
[2024-03-24] MEDS: ENSURE HP 237 ML LIQUID PO (21:44)
--- NOTE | 2024-03-24 21:52 | PC.NURSE ---
Patient FSBS 433. Attempted to give insulin. Patient refused stating he doesn't want to lose his job by taking insulin. Educated patient on importance of lower blood sugar. Patient still refused. Patient had pepsi and candy at bedside. Offered diet pepsi instead and provided education on diet choices. Patient refused. Call light within reach no further needs at this time.
[2024-03-25] VITALS (21 sets, daily range): BP systolic 98–146; BP diastolic 56–86; PULSE 73–97; TEMP 36.6–36.9; O2SAT 85–96
--- NOTE | 2024-03-25 00:06 | PC.NURSE ---
Fluids and candy removed from bedside and patient reminded of NPO
[2024-03-25] MEDS: KETOROLAC TROMETHAMINE 30 MG/ML VIAL 15 MG IVP ×2 (02:13→20:27)
[2024-03-25 06:09] LABS: Basophils Absolute Auto 0.1 10^3/uL (0.0-0.1); Basophils Percent Auto 0.3 % (0.2-2.0); Eosinophils Percent Auto 0.1 % (0.9-7.0); Hematocrit 51.6 % (42.0-54.0); Hemoglobin 16.7 g/dL (14.0-18.0); Immature Granulocytes Abs Auto 0.15 10^3/uL (0.00-0.03); Immature Granulocytes Pct Auto 0.7 % (0.0-0.5); Lymphocytes Absolute Auto 0.9 10^3/uL (1.2-3.8); Mean Corpuscular HGB Conc 32.4 g/dL (29.9-35.2); Mean Corpuscular Hemoglobin 31.6 pg (25.9-34.0); Mean Corpuscular Volume 97.5 fL (80.0-94.0); Monocytes Absolute Auto 2.8 10^3/uL (0.3-0.8); Neutrophils Absolute Auto 17.7 10^3/uL (1.4-6.5); Neutrophils Percent Auto 81.9 % (43.0-75.0); Platelet Count 225 10^3/uL (150-450); Red Blood Count 5.29 10^6/uL (4.70-6.10); Red Cell Distribution Width 14.1 % (11.0-15.0); White Blood Count 21.6 10^3/uL (4.0-11.0)
[2024-03-25 06:20] LABS: Erythrocyte Sedimentation Rate 110 mm/hr (<=20)
[2024-03-25 06:23] LABS: Anion Gap 8.9; BUN Creatinine Ratio 23.3; Calcium 9.6 mg/dL (8.5-10.1); Carbon Dioxide 31.1 mmol/L (21.0-32.0); Chloride 94 mmol/L (98-107); Estimated GFR (African America >60 (>=60); Estimated GFR (Non-African Ame >60 (>=60); Glucose 337 mg/dL (74-106); Sodium 130 mmol/L (136-145)
[2024-03-25 07:30] LABS: Glucometer 369 mg/dL (74-106)
[2024-03-25] MEDS: PIPERACILLIN SODIUM/TAZOBACTAM 3.375 GM in 0.9 % SODIUM CHLORIDE 50 ML IV ×3 (07:41→23:10)
[2024-03-25 07:54] LABS: C Reactive Protein 28.46 mg/dL (<=0.50)
--- NOTE | 2024-03-25 07:57 | CM.NOTE ---
Rounds made with Dr. Lynn, discussed with pt importance of getting BS under control and need for insulin while in the hospital. Dr. Curtis will take pt to OR today for I&D. No discharge today.
[2024-03-25] MEDS: INSULIN ASPART 300 UNIT/3 ML PEN SUBQ (08:25)
--- NOTE | 2024-03-25 08:50 | PM.ORONB ---
Brief Operative Note Date of procedure: 03/25/24 Pre-op diagnosis general: Right foot abscess/cellulitis possible osteomyelitis Post-op diagnosis: same as pre-op Procedure: Procedure performed: Incision and drainage right foot abscess Indications for procedure: Patient is a 63-year-old male who was admitted yesterday for severe diabetic foot infection. Please see consultation note for further details. In short patient presents for I&D of right foot. Intraoperative findings: Preoperative ulcer measurements: 4.5 x 3.5 x 0.3 cm Postoperative ulcer measurements: 16.4 x 8.2 x 3.5 cm Ulcer located on the right plantar medial aspect of first metatarsal head. Cellulitis extending to the proximal leg encompassing the entire foot and ankle. Extensive necrosis on the medial, plantar and dorsal aspect of the first metatarsal. Pus noted upon incising the ulcer which extended into the first intermetatarsal space and up the extensor tendons to the level of ankle. Pus surrounding first metatarsal but bone quality was within normal limits. Procedure in detail: Patient is identified in preoperative holding by myself which time correct side and site were marked and consent obtained. Patient is receiving vancomycin on the floor so no additional antibiotics were provided. Patient is brought back in the operating theater placed on table in supine position. IV sedation was administered and the right lower extremity was prepped and draped in usual sterile fashion. Formal timeout was performed and the surgical site was blocked in a standard first ray fashion using 10 cc of 1% lidocaine plain and 10 cc of half percent Marcaine plain. With attention to the ulceration on the right foot, the ulcer was sharply debrided with a scalpel excising all nonviable tissue which included fat & fascia and carter pus was noted. Tissue swabs of the pus was obtained and sent to microbiology further sharp excisional debridement was performed excising all necrotic tissue which involved fat, fascia, extensor and flexor hallucis longus tendons and periosteum. Purulence encompassed around the first metatarsal into the intermetatarsal space. The wound was extended proximally and dorsally with a 15 blade noting further purulence tracking along the extensor hallucis tendon to the level of the ankle. All questionable and obviously necrotic tissue was excised which included tendons to the great toe. Surgical site was irrigated with 3 L of normal saline on pulse lavage then utilizing clean instruments further blunt dissection along the tendons was performed and into the intermetatarsal space to ensure all purulence was evacuated. Then the surgical site was irrigated with 3 additional liters of normal saline on pulse lavage. Hemostasis was controlled with a temporary pressure dressing and Ana hemostatic powder. There was slow oozing noted from the skin edges and all bleeders were coagulated but given the amount of oozing and blood loss already obtained decision was made to pack the wound open with Betadine soaked Kerlix, ABDs additional Kerlix followed by cast padding applied from the forefoot to the popliteal fossa followed by a layer of Jone wrap's, additional layers of cast padding and an additional layer of Jone wrap's. Patient tolerated the procedure and anesthesia well was transferred to the recovery room with vital signs stable. Capillary refill to the digits was brisk Postoperative plan: Transfer to medical surgical unit under the hospitalist care Heel weightbearing during transfers/bathroom Reinforce dressing as needed Will have wound VAC applied on the floor tomorrow Continue broad-spectrum antibiotics and follow cultures obtained in the emergency department as well as cultures today Dr. Lynn notified about findings of the procedures and blood loss Patient will require repeat I&D versus amputation Friday Will follow Implants: None Anesthesia: MEJIA Surgeon: Rc Curtis Estimated blood loss (mL): 250 Tourniquet time (min): 0 Pathology: other (swabs & 1st metatarsal bone to micro) Condition: stable Disposition: PACU
[2024-03-25] MEDS: BUPIVACAINE HCL 0.5% PF 50 MG/10 ML VIAL INJ (09:47)
[2024-03-25] MEDS: LIDOCAINE HCL 1% 100 MG/10 ML MDV INJ (09:48)
[2024-03-25 09:52] LABS: Glucometer 356 mg/dL (74-106)
--- NOTE | 2024-03-25 10:37 | P.PN_ITS ---
Progress Note: Subjective Subjective Interval history: Patient is sleepy but awakens easily, answers questions appropriately, some mild dyspnea at rest still with persistent cough as well Exam Constitutional Vital Signs, click to edit/add: Last Vital Signs Temp 97.9 F 03/25/24 07:56 Pulse 73 03/25/24 07:56 Resp 16 03/25/24 07:56 BP 129/86 03/25/24 07:56 Pulse Ox 93 L 03/25/24 07:56 O2 Del Method Nasal Cannula 03/25/24 07:56 O2 Flow Rate 4 03/25/24 07:56 Documenting provider has reviewed patient's vital signs: yes Common normals: apparent distress (Conversational dyspnea) Chest Common normals: inspection of chest normal Respiratory Common normals: no use of accessory muscles; abnormal respiratory effort and not clear to ascultation bilaterally Effort & inspection: tachypneic (Not significantly improved from previous day) and respiratory distress Auscultation: rhonchi Cardio Common normals: regular rate, regular rhythm and no murmurs GI Common normals: Normal to inspection, nondistended, normoactive bowel sounds present Extremity Common normals: abnormal to inspection (Right lower extremity with large dressing in place, varicosities right lowe) Other: Erythema currently at the line of demarcation Progress Note: Objective Labs Labs: Short CBC 03/24/24 03/25/24 Range/Units 11:15 05:54 WBC 21.5 H 21.6 H (4.0-11.0) 10^3/uL Hgb 18.5 H 16.7 (14.0-18.0) g/dL Hct 54.6 H 51.6 (42.0-54.0) % Plt Count 227 225 (150-450) 10^3/uL BMP 03/24/24 03/24/24 03/24/24 11:15 11:15 11:15 Sodium 131 L Cancelled Potassium 4.2 Cancelled Chloride 93 L Carbon Dioxide BUN Creatinine Glucose Calcium 03/24/24 03/24/24 03/24/24 11:15 11:15 11:15 Sodium Potassium Chloride Cancelled Carbon Dioxide 25.5 Cancelled BUN 18.0 Cancelled Creatinine 1.10 Glucose Calcium 03/24/24 03/24/24 03/24/24 11:15 11:15 11:15 Sodium Potassium Chloride Carbon Dioxide BUN Creatinine Cancelled Glucose 381 H Cancelled Calcium 10.1 Cancelled 03/25/24 05:54 Sodium 130 L Potassium 4.0 Chloride 94 L Carbon Dioxide 31.1 BUN 28.0 H Creatinine 1.20 Glucose 337 H Calcium 9.6 Liver Function 03/24/24 03/24/24 03/24/24 Range/Units 11:15 11:15 11:15 Total Bilirubin 2.4 H Cancelled (0.2-1.0) mg/dL AST 16 Cancelled (15-37) U/L ALT 18 (16-63) U/L Alkaline Phosphatase (46-116) U/L Albumin (3.4-5.0) g/dL 03/24/24 03/24/24 03/24/24 Range/Units 11:15 11:15 11:15 Total Bilirubin (0.2-1.0) mg/dL AST (15-37) U/L ALT Cancelled (16-63) U/L Alkaline Phosphatase 114 Cancelled (46-116) U/L Albumin 2.3 L Cancelled (3.4-5.0) g/dL Progress Note: A&P Assessment and Plan (1) Cellulitis: Qualifiers: Laterality: right Site of cellulitis: extremity Site of cellulitis of extremity: lower extremity Qualified Code(s): L03.115 - Cellulitis of right lower limb (2) Edema, peripheral: (3) Upper respiratory infection: (4) Abscess of right foot: (5) Acute osteomyelitis of right foot: (6) Type 2 diabetes mellitus with diabetic polyneuropathy: Plan Admission findings: Leukocytosis with white blood cell count greater than 20,000 secondary to cellulitis right lower extremity this is a complication of his diabetes. Consult to podiatry Cellulitis right lower extremity resulting in sepsis (tachypnea, leukocytosis, source of infection)-IV antibiotics vancomycin and Zosyn, consult to podiatry, this is a diabetic foot wound. Blood cultures pending. Surgical intervention today Poorly controlled diabetes mellitus-Place patient on insulin sliding scale Acute exacerbation of COPD with acute hypoxia with O2 sat less than 90% and tachypnea.-try to obtain sputum culture, aerosol treatments, IV antibiotics as outlined above for the cellulitis would cover anything in his lungs. Continue with current treatment plan, still try and obtain sputum culture Polycythemia-improved today. Likely secondary to his COPD Hyponatremia-likely secondary to poorly controlled diabetes mellitus-monitor daily Moderate protein calorie malnutrition-diet management Hypertension-monitor daily Admission status: Acute exacerbation of COPD with severe diabetic foot wound- plan per podiatry, IV antibiotics for several days. Medically necessary treatment will span more than 2 midnights. Inpatient status.
[2024-03-25 10:44] LABS: Glucometer 275 mg/dL (74-106)
[2024-03-25] MEDS: BUDESONIDE 0.5 MG/2 ML AMPULE NEB IH ×2 (11:24→23:12)
[2024-03-25] MEDS: IPRATROPIUM/ALBUTEROL SULFATE 3 ML AMPUL.NEB IH ×3 (11:24→23:11)
--- NOTE | 2024-03-25 11:42 | PC.NURSE ---
extremity elevated on 2 pillows
--- NOTE | 2024-03-25 11:47 | PC.NURSE ---
Okay to transfer pt to [facility] on 6L nasal cannula per anesthesia
[2024-03-25] MEDS: 0.9 % SODIUM CHLORIDE 250 ML 10 ML IV (12:06)
[2024-03-25] MEDS: VANCOMYCIN HCL 2,000 MG in 0.9 % SODIUM CHLORIDE 500 ML 250 MG IV (12:07)
--- NOTE | 2024-03-25 14:31 | SWNOTE1 ---
SW checked surgery note and plan is for surgery again on Friday.
[2024-03-25 15:28] LABS: A. calcoaceticus-baumannii Cpx NOT DETECTED (NOT DETECTE); Bacteroides fragilis NOT DETECTED (NOT DETECTE); Candida albicans NOT DETECTED (NOT DETECTE); Candida auris NOT DETECTED (NOT DETECTE); Candida glabrata NOT DETECTED (NOT DETECTE); Candida krusei NOT DETECTED (NOT DETECTE); Candida parapsilosis NOT DETECTED (NOT DETECTE); Candida tropicalis NOT DETECTED (NOT DETECTE); Cryptococcus neoformans/gattii NOT DETECTED (NOT DETECTE); Enterobacter cloacae complex NOT DETECTED (NOT DETECTE); Enterobacterales NOT DETECTED (NOT DETECTE); Enterococcus faecalis NOT DETECTED (NOT DETECTE); Enterococcus faecium NOT DETECTED (NOT DETECTE); Haemophilus influenzae NOT DETECTED (NOT DETECTE); Klebsiella aerogenes NOT DETECTED (NOT DETECTE); Klebsiella pneumoniae group NOT DETECTED (NOT DETECTE); Listeria monocytogenes NOT DETECTED (NOT DETECTE); Neisseria meningitidis NOT DETECTED (NOT DETECTE); Proteus spp. NOT DETECTED (NOT DETECTE); Pseudomonas aeruginosa NOT DETECTED (NOT DETECTE); Salmonella spp. NOT DETECTED (NOT DETECTE); Serratia marcescens NOT DETECTED (NOT DETECTE); Staphylococcus epidermidis NOT DETECTED (NOT DETECTE); Staphylococcus lugdunensis NOT DETECTED (NOT DETECTE); Stenotrophomonas maltophilia NOT DETECTED (NOT DETECTE); Streptococcus agalactiae NOT DETECTED (NOT DETECTE); Streptococcus pneumoniae NOT DETECTED (NOT DETECTE); Streptococcus pyogenes NOT DETECTED (NOT DETECTE); Streptococcus spp. NOT DETECTED (NOT DETECTE)
[2024-03-25 19:09] LABS: Staphylococcus spp. DETECTED (NOT DETECTE); mecA/C and MREJ (MRSA) DETECTED (NOT DETECTE)
[2024-03-25 19:13] LABS: Source BLOOD
[2024-03-25 20:28] LABS: Glucometer 377 mg/dL (74-106)
[2024-03-25] MEDS: ENSURE HP 237 ML LIQUID PO (20:30)
[2024-03-26] VITALS (12 sets, daily range): BP systolic 103–123; BP diastolic 57–71; PULSE 69–88; TEMP 36.4–36.7; O2SAT 69–97
[2024-03-26 06:25] LABS: Hematocrit 47.7 % (42.0-54.0); Hemoglobin 15.5 g/dL (14.0-18.0); Mean Corpuscular HGB Conc 32.5 g/dL (29.9-35.2); Mean Corpuscular Hemoglobin 31.8 pg (25.9-34.0); Mean Corpuscular Volume 97.9 fL (80.0-94.0); Mean Platelet Volume 11.1 fL (9.5-13.5); Platelet Count 261 10^3/uL (150-450); Red Blood Count 4.87 10^6/uL (4.70-6.10); Red Cell Distribution Width 14.1 % (11.0-15.0); White Blood Count 15.2 10^3/uL (4.0-11.0)
[2024-03-26 06:39] LABS: Anion Gap 7.1; BUN Creatinine Ratio 21.1; C Reactive Protein 22.96 mg/dL (<=0.50); Calcium 9.4 mg/dL (8.5-10.1); Chloride 92 mmol/L (98-107); Estimated GFR (African America >60 (>=60); Estimated GFR (Non-African Ame 56 (>=60); Glucose 401 mg/dL (74-106); Potassium 4.1 mmol/L (3.5-5.1); Sodium 129 mmol/L (136-145)
[2024-03-26 06:40] LABS: Erythrocyte Sedimentation Rate 127 mm/hr (<=20)
[2024-03-26 07:02] LABS: Band Neutrophils Absolute 1.2 10^3/uL (0.0-0.3); Lymphocytes Absolute Manual 1.97 10^3/uL (1.20-3.80); Segmented Neut Absolute Manual 11.09 10^3/uL (1.4-6.5)
[2024-03-26 07:03] LABS: Monocytes Absolute Manual 0.91 10^3/uL (0.30-0.80)
[2024-03-26 07:55] LABS: Glucometer 402 mg/dL (74-106)
--- NOTE | 2024-03-26 08:23 | CM.NOTE ---
Rounds made with Dr. Lynn, discussed plan of care with pt. Pt will have 2nd procedure on Friday with Dr. Curtis, wound vac placement today. Pt also having periods of hypoxia, Dr. Lynn explained importance of wearing oxygen and also taking insulin for elevated BS. Pt verbalizes understanding. Dr. Lynn explained danger of not wearing oxygen and also with not taking insulin as directed and damage to organs.
[2024-03-26] MEDS: GLIMEPIRIDE 2 MG TABLET PO (08:42)
[2024-03-26] MEDS: ENSURE HP 237 ML LIQUID PO ×2 (08:42→22:10)
[2024-03-26] MEDS: JUVEN PACKET 1 PACKET PO ×2 (08:42→22:11)
[2024-03-26] MEDS: METFORMIN HCL 500 MG TABLET 1000 MG PO (08:42)
[2024-03-26] MEDS: PIPERACILLIN SODIUM/TAZOBACTAM 3.375 GM in 0.9 % SODIUM CHLORIDE 50 ML IV ×3 (08:42→23:04)
[2024-03-26] MEDS: INSULIN ASPART 300 UNIT/3 ML PEN SUBQ ×4 (08:57→22:13)
--- NOTE | 2024-03-26 09:33 | P.PN_ITS ---
Progress Note: Subjective Subjective Interval history: Patient more awake and alert than yesterday. Did discuss his need to wear his supplemental oxygen when his oxygen goes below 90, patient was refusing overnight and O2 saturations went into the 70s. Also discussed at length his need for insulin. He did not want to take it with his metformin. Encouraged that combining both will improve his chances of keeping his leg Exam Constitutional Vital Signs, click to edit/add: Last Vital Signs Temp 98.1 F 03/26/24 08:30 Pulse 69 03/26/24 08:30 Resp 18 03/26/24 08:30 BP 114/71 03/26/24 08:30 Pulse Ox 92 L 03/26/24 08:55 O2 Del Method Nasal Cannula 03/26/24 08:55 O2 Flow Rate 6 03/26/24 08:55 Documenting provider has reviewed patient's vital signs: yes Common normals: apparent distress (Conversational dyspnea) Chest Common normals: inspection of chest normal Respiratory Common normals: no use of accessory muscles; abnormal respiratory effort and not clear to ascultation bilaterally Effort & inspection: tachypneic (Not significantly improved from previous day) and respiratory distress Auscultation: rhonchi Cardio Common normals: regular rate, regular rhythm and no murmurs GI Common normals: Normal to inspection, nondistended, normoactive bowel sounds present Extremity Common normals: abnormal to inspection (Right lower extremity with large dressing in place, varicosities right lowe) Other: Erythema currently at the line of demarcation Progress Note: Objective Labs Labs: Short CBC 03/26/24 Range/Units 06:02 WBC 15.2 H (4.0-11.0) 10^3/uL Hgb 15.5 (14.0-18.0) g/dL Hct 47.7 (42.0-54.0) % Plt Count 261 (150-450) 10^3/uL BMP 03/26/24 06:02 Sodium 129 L Potassium 4.1 Chloride 92 L Carbon Dioxide 34.0 H BUN 27.0 H Creatinine 1.28 Glucose 401 H Calcium 9.4 Progress Note: A&P Assessment and Plan (1) Cellulitis: Qualifiers: Laterality: right Site of cellulitis: extremity Site of cellulitis of extremity: lower extremity Qualified Code(s): L03.115 - Cellulitis of right lower limb (2) Edema, peripheral: (3) Upper respiratory infection: (4) Abscess of right foot: (5) Acute osteomyelitis of right foot: (6) Type 2 diabetes mellitus with diabetic polyneuropathy: Plan Admission findings: Leukocytosis with white blood cell count greater than 20,000 secondary to cellulitis right lower extremity this is a complication of his diabetes. Consult to podiatry Cellulitis right lower extremity resulting in sepsis (tachypnea, leukocytosis, source of infection)-IV antibiotics vancomycin and Zosyn, had surgery on 03/25/2024-cultures pending. Continue with current antibiotics white blood cell count improved Poorly controlled diabetes mellitus-Place patient on insulin sliding scale- discussed the need for patient to use which she has not been so did not adjust scale further today Acute exacerbation of COPD with acute hypoxia with O2 sat less than 90% and tachypnea.-Breathing seems more comfortable, continue with current treatment plan Polycythemia-improved today. Likely secondary to his COPD-improved Hyponatremia-likely secondary to poorly controlled diabetes mellitus-monitor daily Moderate protein calorie malnutrition-diet management Hypertension-monitor daily Admission status: Acute exacerbation of COPD with severe diabetic foot wound- plan per podiatry, IV antibiotics for several days. Medically necessary tr eatment will span more than 2 midnights. Inpatient status. Patient likely here 3-4 more days or more surgical intervention
[2024-03-26 11:20] LABS: Glucometer 261 mg/dL (74-106)
[2024-03-26] MEDS: BUDESONIDE 0.5 MG/2 ML AMPULE NEB IH ×2 (11:26→23:10)
[2024-03-26] MEDS: IPRATROPIUM/ALBUTEROL SULFATE 3 ML AMPUL.NEB IH ×3 (11:26→23:10)
--- NOTE | 2024-03-26 11:29 | RESP.RT ---
titrated down to 5L
[2024-03-26] MEDS: VANCOMYCIN HCL 2,000 MG in 0.9 % SODIUM CHLORIDE 500 ML 250 MG IV (11:56)
--- NOTE | 2024-03-26 12:23 | PM.PN ---
Progress Note: Subjective Subjective Interval history: Patient relates to feeling somewhat better. Patient did have O2 on and discussed my concerns with his poorly controlled diabetes as well as the extent of his infection. He stated You ain't taking off any toes. Exam Narrative Exam Narrative: Dressing removed revealing mild improvement in swelling but significant improvement in erythema which has subsided below his ankle. His wound base is fibrogranular and periwound skin is macerated. First metatarsal largely exposed. Large varicose veins noted throughout his leg. No pain on palpation. No calf pain with squeeze. Constitutional Vital Signs, click to edit/add: Last Vital Signs Temp 97.9 F 03/26/24 12:02 Pulse 79 03/26/24 12:02 Resp 16 03/26/24 12:02 BP 113/65 03/26/24 12:02 Pulse Ox 91 L 03/26/24 12:02 O2 Del Method Nasal Cannula 03/26/24 12:02 O2 Flow Rate 5 03/26/24 12:02 Progress Note: Objective Labs Labs: Short CBC 03/26/24 Range/Units 06:02 WBC 15.2 H (4.0-11.0) 10^3/uL Hgb 15.5 (14.0-18.0) g/dL Hct 47.7 (42.0-54.0) % Plt Count 261 (150-450) 10^3/uL BMP 03/26/24 06:02 Sodium 129 L Potassium 4.1 Chloride 92 L Carbon Dioxide 34.0 H BUN 27.0 H Creatinine 1.28 Glucose 401 H Calcium 9.4 Progress Note: A&P Assessment and Plan (1) Cellulitis: Assessment and Plan: Improving significantly Qualifiers: Laterality: right Site of cellulitis: extremity Site of cellulitis of extremity: lower extremity Qualified Code(s): L03.115 - Cellulitis of right lower limb (2) Edema, peripheral: (3) Upper respiratory infection: (4) Abscess of right foot: (5) Acute osteomyelitis of right foot: Assessment and Plan: Bone cultures pending (6) Type 2 diabetes mellitus with diabetic polyneuropathy: Plan Patient seen and evaluated at bedside with Valerie Reyes RN, our wound nurse who will attempt to apply wound VAC but there is concern of maintaining seal given his skin maceration and toe swelling. If VAC cannot be applied dry sterile dressing will be placed. It seems as though patient does not understand the seriousness of his issue and that he has potentially limb and life-threatening condition. I recommended at minimum partial first ray amputation but patient would likely do better with a transmetatarsal amputation however he is refusing. I explained that in order to save his foot it will likely take months of wound care and likely multiple additional surgeries and even then his risk of major amputation and repeat severe infection remain very high. Given the patient's wishes we will proceed with repeat debridement until we are certain all acute infection has been cleared Will follow cultures Patient will undergo repeat surgery on Friday Will follow
--- NOTE | 2024-03-26 13:20 | W.PM.WC ---
Wound Consult Note Assessment and Plan (1) Cellulitis: Qualifiers: Laterality: right Site of cellulitis: extremity Site of cellulitis of extremity: lower extremity Qualified Code(s): L03.115 - Cellulitis of right lower limb (2) Edema, peripheral: (3) Upper respiratory infection: (4) Abscess of right foot: (5) Acute osteomyelitis of right foot: (6) Type 2 diabetes mellitus with diabetic polyneuropathy: Plan Applied wound vac today per Dr. Curtis's orders. Veraflo VAC dressing was applied to right medial foot wound. Adaptic was placed over exposed bone in wound bed. Wound measures 16.4cmx8.2cmx3.5cm. Wound bed is pink, fibrous. Purulent drainage noted in wound bed. No malodor noted currently. Patient's cellulitis appears to be resolving. Dr. Curtis in to see patient while dressing off. Discussed plan with patient. Achieved suction to VAC at 125mmHg with 20ml of saline to infuse into the dressing every 3 hours and soak for 10 minutes. If VAC seal fails, remove and applied saline dressing. Patient to return to OR on Friday for additional debridement and wash out. Dru Reyes RN, CWON
--- NOTE | 2024-03-26 14:13 | SWNOTE1 ---
SW attempted to see pt, pt was sleeping in bed. Attempted to wake, but pt wanted to sleep. SW to check on patient on Friday.
--- NOTE | 2024-03-26 16:23 | RESP.RT ---
titrated down to 4L
[2024-03-26 16:28] LABS: Glucometer 167 mg/dL (74-106)
[2024-03-26 20:44] LABS: Glucometer 317 mg/dL (74-106)
[2024-03-26] MEDS: ACETAMINOPHEN 500 MG TABLET 1000 MG PO (22:39)
[2024-03-27] VITALS (10 sets, daily range): BP systolic 116–141; BP diastolic 72–76; PULSE 70–84; TEMP 36.6–36.8; O2SAT 86–95
[2024-03-27] MEDS: IPRATROPIUM/ALBUTEROL SULFATE 3 ML AMPUL.NEB IH ×4 (04:28→22:48)
[2024-03-27 06:31] LABS: Basophils Absolute Auto 0.1 10^3/uL (0.0-0.1); Basophils Percent Auto 0.6 % (0.2-2.0); Eosinophils Absolute Auto 0.3 10^3/uL (0.0-0.7); Eosinophils Percent Auto 2.6 % (0.9-7.0); Immature Granulocytes Abs Auto 0.36 10^3/uL (0.00-0.03); Lymphocytes Absolute Auto 1.4 10^3/uL (1.2-3.8); Lymphocytes Percent Auto 11.7 % (20.5-60.0); Mean Corpuscular HGB Conc 32.6 g/dL (29.9-35.2); Mean Corpuscular Hemoglobin 31.6 pg (25.9-34.0); Mean Corpuscular Volume 96.8 fL (80.0-94.0); Mean Platelet Volume 10.8 fL (9.5-13.5); Monocytes Absolute Auto 1.5 10^3/uL (0.3-0.8); Monocytes Percent Auto 12.1 % (1.7-12.0); Neutrophils Absolute Auto 8.5 10^3/uL (1.4-6.5); Platelet Count 298 10^3/uL (150-450); Red Blood Count 4.75 10^6/uL (4.70-6.10); Red Cell Distribution Width 13.8 % (11.0-15.0); White Blood Count 12.1 10^3/uL (4.0-11.0)
[2024-03-27 06:40] LABS: Erythrocyte Sedimentation Rate 105 mm/hr (<=20)
[2024-03-27 06:42] LABS: Anion Gap 4.5; BUN Creatinine Ratio 24.2; C Reactive Protein 13.92 mg/dL (<=0.50); Calcium 9.7 mg/dL (8.5-10.1); Carbon Dioxide 34.2 mmol/L (21.0-32.0); Chloride 97 mmol/L (98-107); Estimated GFR (African America >60 (>=60); Estimated GFR (Non-African Ame >60 (>=60); Glucose 217 mg/dL (74-106); Potassium 3.7 mmol/L (3.5-5.1); Sodium 132 mmol/L (136-145)
[2024-03-27] MEDS: INSULIN ASPART 300 UNIT/3 ML PEN SUBQ ×4 (07:27→22:12)
[2024-03-27] MEDS: METFORMIN HCL 500 MG TABLET 1000 MG PO ×2 (08:22→16:33)
[2024-03-27] MEDS: JUVEN PACKET 1 PACKET PO ×2 (08:22→22:15)
[2024-03-27] MEDS: ENSURE HP 237 ML LIQUID PO ×2 (08:22→22:15)
[2024-03-27] MEDS: PIPERACILLIN SODIUM/TAZOBACTAM 3.375 GM in 0.9 % SODIUM CHLORIDE 50 ML IV ×2 (08:23→15:47)
[2024-03-27] MEDS: GLIMEPIRIDE 2 MG TABLET PO (08:23)
[2024-03-27] MEDS: BUDESONIDE 0.5 MG/2 ML AMPULE NEB IH ×2 (09:59→22:48)
--- NOTE | 2024-03-27 10:11 | PM.PN ---
Progress Note: Subjective Subjective Interval history: Patient seen at bedside and has no specific complaints other than he would like to leave the hospital. Exam Narrative Exam Narrative: Wound VAC with serosanguineous output and is holding suction. Patient is able to wiggle his lesser toes but his great toe is nonfunctional but rectus. No pain on palpation Constitutional Vital Signs, click to edit/add: Last Vital Signs Temp 98.3 F 03/27/24 07:38 Pulse 84 03/27/24 07:38 Resp 18 03/27/24 07:40 BP 120/74 03/27/24 07:38 Pulse Ox 94 L 03/27/24 04:28 O2 Del Method Nasal Cannula 03/27/24 07:38 O2 Flow Rate 4 03/27/24 07:38 Progress Note: Objective Labs Labs: Short CBC 03/27/24 Range/Units 06:15 WBC 12.1 H (4.0-11.0) 10^3/uL Hgb 15.0 (14.0-18.0) g/dL Hct 46.0 (42.0-54.0) % Plt Count 298 (150-450) 10^3/uL BMP 03/27/24 06:15 Sodium 132 L Potassium 3.7 Chloride 97 L Carbon Dioxide 34.2 H BUN 23.0 H Creatinine 0.95 Glucose 217 H Calcium 9.7 Progress Note: A&P Assessment and Plan (1) Cellulitis: Qualifiers: Laterality: right Site of cellulitis: extremity Site of cellulitis of extremity: lower extremity Qualified Code(s): L03.115 - Cellulitis of right lower limb (2) Edema, peripheral: (3) Upper respiratory infection: (4) Abscess of right foot: Assessment and Plan: Staph aureus & Gram negative rods from ER culture sent on 03/24 Blood cultures still pending (5) Acute osteomyelitis of right foot: Assessment and Plan: Gram positive cocci on surgical cultures obtained on 03/25 from both sources (swabs and bone) - specimens labeled on report Great toe & RT Foot not sure which is from tissue swabs & 1st metatarsal bone but both have gram positive cocci therefore confirms diagnosis of acute osteomyelitis Labs: WBC & CRP trending down (6) Type 2 diabetes mellitus with diabetic polyneuropathy: Plan Plan is for repeat debridement on Friday and I again explained to the patient that his culture results confirm acute osteomyelitis. I explained that he has a very long road ahead of him with a very high chance of major limb loss. Despite this patient remains firm that I am not to amputate any toes or parts of his foot. He asked if he could leave the hospital tomorrow for just a couple of hours. I strongly advise against this and related to him that he would be leaving AGAINST MEDICAL ADVICE and that he has a serious issue that his noncompliance could affect his outcome significantly. He reluctantly agreed that he would stay. Will follow
[2024-03-27 11:12] LABS: Glucometer 274 mg/dL (74-106)
[2024-03-27 11:55] LABS: Vancomycin Trough 6.3 ug/mL (5.0-20.0)
[2024-03-27] MEDS: VANCOMYCIN HCL 2,000 MG in 0.9 % SODIUM CHLORIDE 500 ML 250 MG IV (12:49)
--- NOTE | 2024-03-27 14:35 | XR_ITS ---
The [address] [address] Patient Name: TYLER SMITH MRN: [id number] date: 1960 Sex: M Assigned Patient Location: [place] Current Patient Location: [place] Accession/Order Number: [id number] Exam Date: 03/27/2024 14:52 Report Date: 03/28/2024 08:19 At the request of: SHAIKH BANDAR Procedure: XR chest 1V EXAMINATION: XR chest 1V HISTORY: HYPOXIA COMPARISON: XR chest 03/24/2024 FINDINGS: LUNGS: Underexpanded lungs with mild haziness and stranding within lung bases. VASCULATURE: No increased pulmonary vasculature. PLEURA: No pneumothorax, effusion, or pleural thickening. CARDIAC: No cardiomegaly or cardiac silhouette abnormality. MEDIASTINUM: No visible mass or adenopathy. BONES: No fracture or visible bone lesion. OTHER: Negative. XR/XR chest 1V IMPRESSION: 1. Underexpanded lungs with trace amount of bibasilar atelectasis versus infiltrates; this is new compared to prior study, but lungs are less well-expanded. Electronically authenticated by: ARIC DODSON Date: 03/28/2024 08:19
--- NOTE | 2024-03-27 14:36 | P.IMPN_ITS ---
Progress Note: A&P Assessment and Plan (1) Acute osteomyelitis of right foot: Assessment and Plan: sec to Staph aureus. Bone cx positive from 03/25 positive for Staph. Sensitivity is pending so unclear if the underlying organism is MRSA or not. Will need repeat debridement and possible amputation on Friday. Podiatry on board. C/w vancomycin/zosyn for now. (2) Cellulitis: Assessment and Plan: Cellulitis/abscess and associated OM, likely sec to staph aureus. Final ID and sensitivity is pending C/w vancomycin/zosyn for now. Qualifiers: Laterality: right Site of cellulitis: extremity Site of cellulitis of extremity: lower extremity Qualified Code(s): L03.115 - Cellulitis of right lower limb (3) Abscess of right foot: Assessment and Plan: s/p I&D. C/w vancomycin/zosyn for now. (4) Type 2 diabetes mellitus with diabetic polyneuropathy: Assessment and Plan: Poorly controlled, non compliant. On metformin/glimepiride and SSI while inpatient. Check A1C. FSBS consistently above 200, added levemir 20 units qhs Qualifiers: Diabetes mellitus retirement insulin use: without retirement use Qualified Code(s): E11.42 - Type 2 diabetes mellitus with diabetic polyneuropathy (5) Chronic respiratory failure with hypoxia: Assessment and Plan: unclear etiology and does not seem to be acute in nature. He is comfortable and has no resp symptoms. He reports being previously told that he has MURALI. He is also a current smoker. Suspect this is likely chronic. Repeat CXR. Currently on 3-4 L O2 via NC at rest. Wean off O2 as tolerated. C/w MARYBEL castro. (6) Smoker: Assessment and Plan: Discussed smoking cessation (7) MURALI (obstructive sleep apnea): Assessment and Plan: Will need formal diagnosis, sleep study. Internal Medicine - PN: Subj Subjective Interval history: Seen and examined. No overnight events. Patient non compliant with diet/activity restriction. Appreciate Podiatry's recommendations. Patient will go to OR again for repeat debridement Exam Constitutional Vital Signs, click to edit/add: Last Vital Signs Temp 98.1 F 03/27/24 11:17 Pulse 78 03/27/24 11:17 Resp 18 03/27/24 11:17 BP 117/72 03/27/24 11:17 Pulse Ox 92 L 03/27/24 11:17 O2 Del Method Nasal Cannula 03/27/24 11:17 O2 Flow Rate 4 03/27/24 11:17 Documenting provider has reviewed patient's vital signs: yes Common normals: no apparent distress and oriented x3 General appearance: cooperative HENMT Common normals: normocephalic and head/scalp atraumatic Head and scalp: normocephalic and atraumatic Respiratory Common normals: normal respiratory effort and clear to auscultation bilaterally Effort & inspection: able to speak in complete sentences Auscultation: clear to auscultation bilaterally Cardio Common normals: regular rate, S1 normal heart sound and S2 normal heart sound Rate: regular rate Heart sounds: S1 normal and S2 normal Extremity Other: Wound VAC with serosanguineous output and is holding suction. Patient is able to wiggle his lesser toes but his great toe is nonfunctional but rectus. No pain on palpation Post op dressing in place on left foot. Right foot is chronically discolored but does not appear infected Neuro Common normals: oriented x3, moves all extremities and no focal motor deficits Psych Common normals: mental status grossly normal, denies hallucinations, denies homicidal ideation and denies suicidal ideation Internal Medicine - PN: Obj Da Labs Labs: Laboratory Results - last 24 hr 03/26/24 03/26/24 03/27/24 16:27 20:42 06:15 WBC 12.1 H RBC 4.75 Hgb 15.0 Hct 46.0 MCV 96.8 H MCH 31.6 MCHC 32.6 RDW 13.8 Plt Count 298 MPV 10.8 Neut % (Auto) 70.0 Lymph % (Auto) 11.7 L [place] % (Auto) 12.1 H Eos % (Auto) 2.6 Baso % (Auto) 0.6 Neut # (Auto) 8.5 H Lymph # (Auto) 1.4 [place] # (Auto) 1.5 H Eos # (Auto) 0.3 Baso # (Auto) 0.1 Abs Immat Gran (auto) 0.36 H Imm/Tot Granulo (auto) 3.0 H ESR 105 H Sodium 132 L Potassium 3.7 Chloride 97 L Carbon Dioxide 34.2 H Anion Gap 4.5 BUN 23.0 H Creatinine 0.95 Est GFR ( Amer) >60 Est GFR (Non-Af Amer) >60 BUN/Creatinine Ratio 24.2 Glucose 217 H Calcium 9.7 C-Reactive Protein 13.92 H Vancomycin Trough POC Glucose 167 H 317 H 03/27/24 03/27/24 10:34 11:11 WBC RBC Hgb Hct MCV MCH MCHC RDW Plt Count MPV Neut % (Auto) Lymph % (Auto) [place] % (Auto) Eos % (Auto) Baso % (Auto) Neut # (Auto) Lymph # (Auto) [place] # (Auto) Eos # (Auto) Baso # (Auto) Abs Immat Gran (auto) Imm/Tot Granulo (auto) ESR Sodium Potassium Chloride Carbon Dioxide Anion Gap BUN Creatinine Est GFR ( Amer) Est GFR (Non-Af Amer) BUN/Creatinine Ratio Glucose Calcium C-Reactive Protein Vancomycin Trough 6.3 POC Glucose 274 H
[2024-03-27 15:11] LABS: Estimated Average Glucose 240 mg/dL
[2024-03-27 15:53] LABS: Glucometer 169 mg/dL (74-106)
[2024-03-27 20:39] LABS: Glucometer 228 mg/dL (74-106)
[2024-03-27] MEDS: INSULIN DETEMIR 300 UNIT/3 ML INSULN.PEN 20 UNIT SUBQ (22:13)
[2024-03-28] VITALS (10 sets, daily range): BP systolic 123–151; BP diastolic 71–84; PULSE 66–86; TEMP 36.7–36.8; O2SAT 86–94
[2024-03-28] MEDS: PIPERACILLIN SODIUM/TAZOBACTAM 3.375 GM in 0.9 % SODIUM CHLORIDE 50 ML IV ×2 (01:50→08:37)
[2024-03-28] MEDS: IPRATROPIUM/ALBUTEROL SULFATE 3 ML AMPUL.NEB IH ×4 (04:31→23:29)
--- NOTE | 2024-03-28 04:31 | RESP.RT ---
Pt had oxygen off when RT walked in the room. Sp02 on room air 87%. O2 reapplied at 3L nasal cannula after breathing tx. Sp02 increased to 92%.
[2024-03-28 05:59] LABS: Basophils Absolute Auto 0.1 10^3/uL (0.0-0.1); Basophils Percent Auto 0.8 % (0.2-2.0); Eosinophils Absolute Auto 0.4 10^3/uL (0.0-0.7); Eosinophils Percent Auto 3.3 % (0.9-7.0); Hematocrit 45.1 % (42.0-54.0); Hemoglobin 14.8 g/dL (14.0-18.0); Immature Granulocytes Abs Auto 0.74 10^3/uL (0.00-0.03); Immature Granulocytes Pct Auto 6.6 % (0.0-0.5); Lymphocytes Absolute Auto 1.5 10^3/uL (1.2-3.8); Lymphocytes Percent Auto 13.3 % (20.5-60.0); Mean Corpuscular HGB Conc 32.8 g/dL (29.9-35.2); Mean Corpuscular Hemoglobin 31.6 pg (25.9-34.0); Mean Corpuscular Volume 96.4 fL (80.0-94.0); Mean Platelet Volume 10.5 fL (9.5-13.5); Monocytes Absolute Auto 1.4 10^3/uL (0.3-0.8); Monocytes Percent Auto 12.1 % (1.7-12.0); Neutrophils Absolute Auto 7.1 10^3/uL (1.4-6.5); Neutrophils Percent Auto 63.9 % (43.0-75.0); Platelet Count 325 10^3/uL (150-450); Red Blood Count 4.68 10^6/uL (4.70-6.10); Red Cell Distribution Width 14.1 % (11.0-15.0); White Blood Count 11.1 10^3/uL (4.0-11.0)
[2024-03-28 06:11] LABS: Anion Gap 12.1; BUN Creatinine Ratio 18.3; Calcium 9.8 mg/dL (8.5-10.1); Carbon Dioxide 29.8 mmol/L (21.0-32.0); Chloride 101 mmol/L (98-107); Estimated GFR (African America >60 (>=60); Estimated GFR (Non-African Ame >60 (>=60); Glucose 225 mg/dL (74-106); Potassium 3.9 mmol/L (3.5-5.1); Sodium 139 mmol/L (136-145)
[2024-03-28 08:06] LABS: Glucometer 241 mg/dL (74-106)
[2024-03-28] MEDS: INSULIN ASPART 300 UNIT/3 ML PEN SUBQ ×4 (08:36→21:06)
[2024-03-28] MEDS: GLIMEPIRIDE 2 MG TABLET PO (08:37)
[2024-03-28] MEDS: METFORMIN HCL 500 MG TABLET 1000 MG PO ×2 (08:37→16:36)
[2024-03-28] MEDS: ENSURE HP 237 ML LIQUID PO ×2 (08:37→21:05)
[2024-03-28] MEDS: JUVEN PACKET 1 PACKET PO ×2 (08:37→21:05)
--- NOTE | 2024-03-28 09:44 | P.IMPN_ITS ---
Progress Note: A&P Assessment and Plan (1) Acute osteomyelitis of right foot: Assessment and Plan: Bone cx positive from 03/25 positive for Staph. Sensitivity is pending but likely MRSA as superficial wound cx is growing MRSA. Will need repeat debridement and possible amputation on Friday. Podiatry on board. C/w vancomycin. Switch Zosyn to Unasyn (2) Cellulitis: Assessment and Plan: Cellulitis/abscess and associated OM. Polymicrobial - positive for Klebsiella/E.Feacalis and MRSA. C/w Vancomycin. Switch Zosyn to Unasyn. Qualifiers: Laterality: right Site of cellulitis: extremity Site of cellulitis of extremity: lower extremity Qualified Code(s): L03.115 - Cellulitis of right lower limb (3) Abscess of right foot: Assessment and Plan: s/p I&D. C/w vancomycin. Switch to Unasyn (4) Pneumonia: Assessment and Plan: No resp symptoms but hypoxic and possible infiltrates/atelectasis. He is on broad spectrum abx for Diabetic foot infection/cellulitis and OM that will adequately cover CAP. C/w duonebs, OPEP. Wean off O2 as tolerated. Qualifiers: Pneumonia type: due to unspecified organism Laterality: bilateral Lung location: lower lobe of lung Qualified Code(s): J18.9 - Pneumonia, unspecified organism (5) Type 2 diabetes mellitus with diabetic polyneuropathy: Assessment and Plan: Poorly controlled, non compliant. On metformin/glimepiride and SSI while inpatient. A1C is 10, Will likely need insulin for effective glycemic control. FSBS consistently above 200, improved after addition of levemir 20 units qhs. Will not increase further as patient will be made NPO after MN for OR tomorrow. 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 He is on broad spectrum abx that would typically cover CAP. He is comfortable and has no resp symptoms. He reports being previously told that he has MURALI. He is also a current smoker. Suspect that hypoxia is partly chronic and not all acute. Wean off O2 as tolerated. C/w duonebs, OPEP. (7) Smoker: Assessment and Plan: Discussed smoking cessation (8) MURALI (obstructive sleep apnea): Assessment and Plan: Will need formal diagnosis, sleep study. Internal Medicine - PN: Subj Subjective Interval history: Seen and examined. Patient took off his wound vac. Continues to be non compliant with activity restriction. He is unhappy about hospital bed and plans to leave AMA tomorrow. Exam Constitutional Vital Signs, click to edit/add: Last Vital Signs Temp 98.3 F 03/28/24 07:49 Pulse 86 03/28/24 07:49 Resp 20 03/28/24 08:20 BP 151/84 H 03/28/24 07:49 Pulse Ox 92 L 03/28/24 07:49 O2 Del Method Nasal Cannula 03/28/24 07:49 O2 Flow Rate 3 03/28/24 07:49 Documenting provider has reviewed patient's vital signs: yes Common normals: no apparent distress and oriented x3 General appearance: cooperative HENMT Common normals: normocephalic and head/scalp atraumatic Head and scalp: normocephalic and atraumatic Respiratory Common normals: normal respiratory effort and clear to auscultation bilaterally Effort & inspection: able to speak in complete sentences Auscultation: clear to auscultation bilaterally Cardio Common normals: regular rate, S1 normal heart sound and S2 normal heart sound Rate: regular rate Heart sounds: S1 normal and S2 normal Extremity Other: Post op dressing in place. Wound vac removed. Neuro Common normals: oriented x3, moves all extremities and no focal motor deficits Psych Common normals: mental status grossly normal, denies hallucinations, denies homicidal ideation and denies suicidal ideation Internal Medicine - PN: Obj Da Labs Labs: Laboratory Results - last 24 hr 03/27/24 03/27/24 03/27/24 10:34 11:11 14:54 WBC RBC Hgb Hct MCV MCH MCHC RDW Plt Count MPV Neut % (Auto) Lymph % (Auto) [place] % (Auto) Eos % (Auto) Baso % (Auto) Neut # (Auto) Lymph # (Auto) [place] # (Auto) Eos # (Auto) Baso # (Auto) Abs Immat Gran (auto) Imm/Tot Granulo (auto) Sodium Potassium Chloride Carbon Dioxide Anion Gap BUN Creatinine Est GFR ( Amer) Est GFR (Non-Af Amer) BUN/Creatinine Ratio Glucose Estimat Average Glucose 240 Hemoglobin A1c 10.0 H Calcium Vancomycin Trough 6.3 POC Glucose 274 H 03/27/24 03/27/24 03/28/24 15:52 20:28 05:28 WBC 11.1 H RBC 4.68 L Hgb 14.8 Hct 45.1 MCV 96.4 H MCH 31.6 MCHC 32.8 RDW 14.1 Plt Count 325 MPV 10.5 Neut % (Auto) 63.9 Lymph % (Auto) 13.3 L [place] % (Auto) 12.1 H Eos % (Auto) 3.3 Baso % (Auto) 0.8 Neut # (Auto) 7.1 H Lymph # (Auto) 1.5 [place] # (Auto) 1.4 H Eos # (Auto) 0.4 Baso # (Auto) 0.1 Abs Immat Gran (auto) 0.74 H Imm/Tot Granulo (auto) 6.6 H Sodium 139 Potassium 3.9 Chloride 101 Carbon Dioxide 29.8 Anion Gap 12.1 BUN 15.0 Creatinine 0.82 Est GFR ( Amer) >60 Est GFR (Non-Af Amer) >60 BUN/Creatinine Ratio 18.3 Glucose 225 H Estimat Average Glucose Hemoglobin A1c Calcium 9.8 Vancomycin Trough POC Glucose 169 H 228 H 03/28/24 08:05 WBC RBC Hgb Hct MCV MCH MCHC RDW Plt Count MPV Neut % (Auto) Lymph % (Auto) [place] % (Auto) Eos % (Auto) Baso % (Auto) Neut # (Auto) Lymph # (Auto) [place] # (Auto) Eos # (Auto) Baso # (Auto) Abs Immat Gran (auto) Imm/Tot Granulo (auto) Sodium Potassium Chloride Carbon Dioxide Anion Gap BUN Creatinine Est GFR ( Amer) Est GFR (Non-Af Amer) BUN/Creatinine Ratio Glucose Estimat Average Glucose Hemoglobin A1c Calcium Vancomycin Trough POC Glucose 241 H
[2024-03-28] MEDS: VANCOMYCIN HCL 1,000 MG in 0.9 % SODIUM CHLORIDE 250 ML 250 MG IV (10:29)
[2024-03-28] MEDS: BUDESONIDE 0.5 MG/2 ML AMPULE NEB IH ×2 (10:56→23:29)
[2024-03-28 11:03] LABS: Glucometer 247 mg/dL (74-106)
[2024-03-28] MEDS: AMPICILLIN SODIUM/SULBACTAM NA 3 GM in 0.9 % SODIUM CHLORIDE 100 ML IV ×3 (11:37→23:39)
[2024-03-28 16:36] LABS: Glucometer 230 mg/dL (74-106)
[2024-03-28] MEDS: INSULIN DETEMIR 300 UNIT/3 ML INSULN.PEN 20 UNIT SUBQ (21:06)
[2024-03-28] MEDS: KETOROLAC TROMETHAMINE 30 MG/ML VIAL 15 MG IVP (21:09)
[2024-03-28 21:14] LABS: Glucometer 224 mg/dL (74-106)
[2024-03-28] MEDS: VANCOMYCIN HCL 1,000 MG in 0.9 % SODIUM CHLORIDE 250 ML 200 MG IV (22:16)
[2024-03-29] VITALS (12 sets, daily range): BP systolic 108–151; BP diastolic 54–82; PULSE 73–86; TEMP 36.7–36.9; O2SAT 88–94
[2024-03-29] MEDS: IPRATROPIUM/ALBUTEROL SULFATE 3 ML AMPUL.NEB IH ×4 (04:02→22:33)
[2024-03-29] MEDS: AMPICILLIN SODIUM/SULBACTAM NA 3 GM in 0.9 % SODIUM CHLORIDE 100 ML IV ×3 (05:31→18:49)
[2024-03-29 05:52] LABS: Basophils Absolute Auto 0.1 10^3/uL (0.0-0.1); Basophils Percent Auto 1.2 % (0.2-2.0); Eosinophils Absolute Auto 0.4 10^3/uL (0.0-0.7); Eosinophils Percent Auto 3.2 % (0.9-7.0); Hematocrit 46.7 % (42.0-54.0); Hemoglobin 14.9 g/dL (14.0-18.0); Immature Granulocytes Abs Auto 1.34 10^3/uL (0.00-0.03); Immature Granulocytes Pct Auto 11.7 % (0.0-0.5); Lymphocytes Absolute Auto 1.7 10^3/uL (1.2-3.8); Lymphocytes Percent Auto 15.1 % (20.5-60.0); Mean Corpuscular HGB Conc 31.9 g/dL (29.9-35.2); Mean Corpuscular Hemoglobin 31.6 pg (25.9-34.0); Mean Corpuscular Volume 99.2 fL (80.0-94.0); Mean Platelet Volume 10.3 fL (9.5-13.5); Monocytes Absolute Auto 1.1 10^3/uL (0.3-0.8); Monocytes Percent Auto 9.7 % (1.7-12.0); Neutrophils Absolute Auto 6.8 10^3/uL (1.4-6.5); Neutrophils Percent Auto 59.1 % (43.0-75.0); Platelet Count 384 10^3/uL (150-450); Red Blood Count 4.71 10^6/uL (4.70-6.10); Red Cell Distribution Width 14.2 % (11.0-15.0); White Blood Count 11.5 10^3/uL (4.0-11.0)
[2024-03-29 05:57] LABS: BUN Creatinine Ratio 20.4; Carbon Dioxide 34.9 mmol/L (21.0-32.0); Chloride 99 mmol/L (98-107); Estimated GFR (African America >60 (>=60); Estimated GFR (Non-African Ame >60 (>=60); Glucose 275 mg/dL (74-106); Potassium 3.9 mmol/L (3.5-5.1); Sodium 137 mmol/L (136-145)
[2024-03-29] MEDS: LACTATED RINGER'S SOLUTION 1,000 ML 50 ML IV (07:00)
[2024-03-29] MEDS: INSULIN ASPART 300 UNIT/3 ML PEN 9 UNIT SUBQ (07:45)
--- NOTE | 2024-03-29 08:20 | P.ORON_ITS ---
Brief Operative Note Date of procedure: 03/29/24 Pre-op diagnosis general: Right foot diabetic foot ulcer with bone necrosis, a cute osteomyelitis, abscess/cellulitis, diabetic neuropathy, type 2 diabetes with foot ulcer Post-op diagnosis: same as pre-op Procedure: Procedure performed: Right foot ulcer debridement down to and including bone; application of short leg splint -stage procedure Indications for procedure: Patient was admitted for severe diabetic foot infection on 03/24/2024 and underwent I&D on 03/25/2024. Cultures obtained on day of admission in the emergency department have resulted in MRSA, Klebsiella and Enterococcus whereas surgical cultures have shown staph aureus with sensitivities pending. Blood cultures also show staph aureus. His WBC is trending down but still somewhat high at 11.5 today. His vitals have been stable with O2 sats being in the low 90s due to COPD and pneumonia. He did have a wound VAC placed on 03/26/2024 which had been holding suction for roughly 24 hours but lost suction on 03/27/2024 and was removed and replaced by wet to dry per nursing. He presents back to the operating room for repeat I&D/debridement. Despite multiple conversations with him regarding the severity of his limb and life-threatening issue patient has adamantly refused any amputation. Intraoperative findings: Preoperative wound measurements: 15.9 x 7.9 x 1.1 cm and tracks over dorsal foot into intermetatrsal space and proximal 4 cm. Postoperative wound measurements: 17.1 x 8.8 x 1.3 cm Fibrogranular wound base with carter exposure of the first metatarsal with scant pus in the intermetarsal space. Necrotic tissue noted circumfrentially around the base of the great to and into the 1st intermetatarsal base. Ancillary wound found between the first and second toes which measures 3.5 x 0.2 x 0.7 cm prior to debridement this wound also had pus and necrotic tissue. After debridement this wound measured 3.8 x 0.4 x 1.5 cm. Given the degree of infection and amount of residual necrotic tissue the great toe is likely not viable. Bone of the first metatarsal remained hard and bled appropriately with debridement. Procedure in detail: Patient was identified in preoperative holding by myself which time correct side and site were marked and consent was obtained. Patient is receiving broad-spectrum antibiotics on the floor and did not receive any additional antibiotics. He was taken back to the operating room placed on table in supine position and the right lower extremity was prepped and draped in usual sterile fashion. Formal timeout was performed and local anesthesia was used to anesthetize the surgical site using 10 cc of 1% lidocaine plain and 10 cc of 0.5% Marcaine plain. The wound was excisionally debrided with a 15 blade excising all nonviable and questionable tissue. Bleeders were coagulated. There is a small amount of purulence noting from the first intermetatarsal space with adjacent necrotic tissue which was excised. Further inspection revealed a wound between the first and second toes which was also excised sharply and debrided with a scalpel and rongeur's noting additional pus and necrotic tissue. These wounds did communicate. There is no purulence or remaining necrotic tissue proximal to the first metatarsal. There was obvious exposure of the first metatarsal which was aggressively curetted to healthy bleeding bone. The wound edges were then curetted to 100% healthy granular base. After debridement there was exposure of the tibialis anterior insertion which appeared to be healthy and intact. The surgical site was irrigated with 3 L of normal saline on pulse lavage. Then blunt dissection was performed with a hemostat ensuring no purulence remained in the foot. Outer gloves were changed and a specimen from the first metatarsal was obtained with clean instrumentation. Oozing from the wound with no bleeders was noted therefore retention sutures were then placed on the proximal and distal most aspects of the wound. Then the wound between the first and second toes was packed with Betadine soaked gauze. A nonadherent dry sterile dressing consisting of Xeroform, 4 x 4's, Kerlix and ABDs was placed followed by multiple layers of cast padding placed from the forefoot to the popliteal fossa followed by a layer of Jone wrap's then additional layers of cast padding followed by a plaster posterior splint which was held in place by Jone wrap's. Patient tolerated procedure anesthesia well and capillary refill was brisk to the lesser 4 toes while the great toe was sluggish and somewhat pale. Postoperative plan: Transfer to the medical surgical unit under the hospitalist care Recommend nonweightbearing to the right foot Antibiotics per the hospitalist and given osteomyelitis/sepsis patient may require a PICC line Will discuss further with the patient that his great toe is nonviable and I again strongly recommend minor amputation in hopes of preventing a major (below knee or proximal) amputation Given the residual pus and necrotic tissue I recommend additional surgical intervention which hopefully will involve partial first ray amputation later this week but if patient will not consent debridement is indicated Will follow Anesthesia: MEJIA Surgeon: Rc Curtis Estimated blood loss (mL): 150 Tourniquet time (min): 0 Pathology: other (First metatarsal bone sent to microbiology and pathology) Condition: stable Disposition: PACU
[2024-03-29] MEDS: LIDOCAINE HCL 1% 100 MG/10 ML MDV INJ (08:59)
[2024-03-29] MEDS: BUPIVACAINE HCL 0.5% PF 50 MG/10 ML VIAL INJ (08:59)
--- NOTE | 2024-03-29 09:15 | CM.NOTE ---
Rounds made with Dr. Villareal pt in OR at this time.
[2024-03-29] MEDS: VANCOMYCIN HCL 1,000 MG VIAL 1000 MG TOPICAL (09:31)
[2024-03-29 10:23] LABS: Glucometer 194 mg/dL (74-106)
[2024-03-29] MEDS: VANCOMYCIN HCL 1,000 MG in 0.9 % SODIUM CHLORIDE 250 ML 250 MG IV ×2 (11:00→22:48)
[2024-03-29 11:08] LABS: Glucometer 201 mg/dL (74-106)
[2024-03-29] MEDS: BUDESONIDE 0.5 MG/2 ML AMPULE NEB IH ×2 (11:19→22:33)
[2024-03-29] MEDS: INSULIN ASPART 300 UNIT/3 ML PEN SUBQ ×3 (11:28→21:49)
--- NOTE | 2024-03-29 12:18 | XR_ITS ---
The [address] [address] Patient Name: TYLER SMITH MRN: [id number] date: 1960 Sex: M Assigned Patient Location: [place] Current Patient Location: [facility] Accession/Order Number: [id number] Exam Date: 03/29/2024 12:35 Report Date: 03/29/2024 16:21 At the request of: CURT OLSON Procedure: XR foot RT min 3V PROCEDURE: XR foot RT min 3V COMPARISON: 03/24/2024 HISTORY: osteotmyelitis FINDINGS: BONES:Change in configuration to the medial first metatarsal head with new lucency, poorly visualized. No acute fracture or dislocation. SOFT TISSUES:Moderate diffuse soft tissue swelling EFFUSION:None visible. OTHER: Posterior splint obscures detail XR/XR foot RT min 3V IMPRESSION: Lucency along the medial head of the first metatarsal, postsurgical change versus osteomyelitis Electronically authenticated by: PRESTON MILAN Date: 03/29/2024 16:21
[2024-03-29] MEDS: CHOLECALCIFEROL (VITAMIN D3) 125 MCG/5,000 UNIT TABLET PO (14:00)
[2024-03-29] MEDS: GLIMEPIRIDE 2 MG TABLET PO (14:00)
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
--- NOTE | 2024-03-29 16:09 | SWNOTE1 ---
Pt was wanting to sign out AMA. Pt did not want to speak to Doctor director of student life of med/surge. Per nursing pt has been aggressive verbally and physically. JOSÉ and Case Management went in to room to speak with pt. Initially pt asked for us to leave, but case management was able to speak with pt and he was conversing with pillowcase cleaner. Pt did voiced frustrations with the beds being uncomfortable, with the government, with his health situation and possibility of losing his leg, another surgery, and overall frustrations with the world. personalized living manager nurse was able to speak with pt about different possibilities of discharge plans. Pt does need IV anbx. Pt can either do home health or [facility]. The other issue is that pt does not have a PCP to follow anbx for at home. Pt is open to having nurse come in to assist him. He voiced he just needs to be home for a few days and needs to process his situation. Pt spoke about several different things while SW and pillowcase cleaner were in room. He would like to sit in chair and use table as he was comfortable there. He also spoke about being in half-way and the government. Pt voiced he was supposed to see Dr. Guzman. SW attempted to call Dr. Guzman and he is not in the system and they are not taking new patients. SW let pt know. He then spoke about Dr. Rony Tian. JOSÉ called Dr. Rony Tians office and they do not have him in system and not taking new pt's but can see if the SITE SAFETY REPRESENTATIVE will follow. JOSÉ and pillowcase cleaner compelted questions over the phone with ointment mill tender for the nurse practitioner. The ointment mill tender will present information to Susana Eisenberg the SITE SAFETY REPRESENTATIVE and will call back. Pt is also aware he may need home oxygen and is in agreement and would like portable. JOSÉ recommended using [facility] as they will be able to set up portable, pt in agreement. At this time pt is not signing out AMA and he is staying. JOSÉ working on getting IV anbx set for home. JOSÉ sent referral to [facility] for home IV's and to [facility] for home IV's. If no physician or SITE SAFETY REPRESENTATIVE follows then we can not send him home with . IF a SITE SAFETY REPRESENTATIVE agrees to follow, then Dr. Villareal has agreed to follow IV's until pt has first appointment with physician or SITE SAFETY REPRESENTATIVE.
[2024-03-29 16:12] LABS: Glucometer 291 mg/dL (74-106)
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
[2024-03-29] MEDS: KETOROLAC TROMETHAMINE 30 MG/ML VIAL 15 MG IVP ×2 (16:15→22:58)
[2024-03-29] MEDS: METFORMIN HCL 500 MG TABLET 1000 MG PO (16:18)
--- NOTE | 2024-03-29 16:30 | PC.NURSE ---
dr cruz assessed patients foot and rewrapped foot at this time. awaiting call back from dr vega.
[2024-03-29 20:39] LABS: Glucometer 222 mg/dL (74-106)
[2024-03-29] MEDS: ENSURE HP 237 ML LIQUID PO (21:47)
[2024-03-29] MEDS: JUVEN PACKET 1 PACKET PO (21:47)
[2024-03-29] MEDS: INSULIN DETEMIR 300 UNIT/3 ML INSULN.PEN 20 UNIT SUBQ (21:49)
[2024-03-29] MEDS: 0.9 % SODIUM CHLORIDE 250 ML 10 ML IV (22:53)
[2024-03-30] VITALS (8 sets, daily range): BP systolic 100–131; BP diastolic 56–75; PULSE 63–87; TEMP 36.6–36.9; O2SAT 76–97
[2024-03-30] MEDS: AMPICILLIN SODIUM/SULBACTAM NA 3 GM in 0.9 % SODIUM CHLORIDE 100 ML IV ×3 (00:16→12:18)
[2024-03-30] MEDS: IPRATROPIUM/ALBUTEROL SULFATE 3 ML AMPUL.NEB IH ×2 (04:33→16:01)
[2024-03-30] MEDS: KETOROLAC TROMETHAMINE 30 MG/ML VIAL 15 MG IVP (05:56)
[2024-03-30 06:27] LABS: Basophils Absolute Auto 0.1 10^3/uL (0.0-0.1); Basophils Percent Auto 0.6 % (0.2-2.0); Eosinophils Absolute Auto 0.3 10^3/uL (0.0-0.7); Hematocrit 43.3 % (42.0-54.0); Hemoglobin 13.8 g/dL (14.0-18.0); Immature Granulocytes Abs Auto 1.22 10^3/uL (0.00-0.03); Immature Granulocytes Pct Auto 9.1 % (0.0-0.5); Lymphocytes Absolute Auto 1.4 10^3/uL (1.2-3.8); Lymphocytes Percent Auto 10.2 % (20.5-60.0); Mean Corpuscular HGB Conc 31.9 g/dL (29.9-35.2); Mean Corpuscular Hemoglobin 31.7 pg (25.9-34.0); Mean Corpuscular Volume 99.3 fL (80.0-94.0); Mean Platelet Volume 10.2 fL (9.5-13.5); Monocytes Absolute Auto 1.4 10^3/uL (0.3-0.8); Monocytes Percent Auto 10.3 % (1.7-12.0); Neutrophils Absolute Auto 9.1 10^3/uL (1.4-6.5); Neutrophils Percent Auto 67.8 % (43.0-75.0); Platelet Count 381 10^3/uL (150-450); Red Blood Count 4.36 10^6/uL (4.70-6.10); Red Cell Distribution Width 14.1 % (11.0-15.0); White Blood Count 13.5 10^3/uL (4.0-11.0)
[2024-03-30 06:47] LABS: Anion Gap 7.2; BUN Creatinine Ratio 20.9; Calcium 9.3 mg/dL (8.5-10.1); Carbon Dioxide 33.1 mmol/L (21.0-32.0); Chloride 99 mmol/L (98-107); Estimated GFR (African America >60 (>=60); Estimated GFR (Non-African Ame >60 (>=60); Glucose 191 mg/dL (74-106); Potassium 4.3 mmol/L (3.5-5.1); Sodium 135 mmol/L (136-145)
[2024-03-30 07:58] LABS: Glucometer 264 mg/dL (74-106)
[2024-03-30] MEDS: METFORMIN HCL 500 MG TABLET 1000 MG PO (08:24)
[2024-03-30] MEDS: ACETAMINOPHEN 500 MG TABLET 1000 MG PO (08:24)
[2024-03-30] MEDS: GLIMEPIRIDE 2 MG TABLET PO (08:24)
[2024-03-30] MEDS: CHOLECALCIFEROL (VITAMIN D3) 125 MCG/5,000 UNIT TABLET PO (08:24)
[2024-03-30] MEDS: INSULIN ASPART 300 UNIT/3 ML PEN SUBQ ×2 (08:24→12:18)
[2024-03-30] MEDS: ENSURE HP 237 ML LIQUID PO (08:25)
[2024-03-30] MEDS: JUVEN PACKET 1 PACKET PO (08:25)
--- NOTE | 2024-03-30 10:22 | CM.NOTE ---
Rounds made with Dr. Villareal. Dr. Villareal offers options for plan of care--Mr. Mckinney would like to go home and do outpatient IV antibiotics and do surgery on . Dr. Villareal explains will also need home oxygen. Mr. Mckinney verbalizes understanding.
--- NOTE | 2024-03-30 10:47 | P.DS_ITS ---
DS: Providers Provider Date of admission: 03/24/24 13:37 Primary care physician: Non-Staff PhysicianMD Admitting clinician: Shaikh Mono Attending physician on admission: Shaikh Mono Consults: 03/24/24 13:04 Consult to Pharmacy Routine Consulting Provider: Reason for consultation: Please [place] me when Med Rec is Updated Has provider been notified: No Consult to Podiatry Routine Consulting Provider: Rc Curtis Reason for consultation: Celliulitis with open wound Has provider been notified: No Occupational Therapy Eval and Treat Routine Reason for consultation: Only if needed for Rehab Has provider been notified: No Physical Therapy Eval and Treat Routine Reason for consultation: Eval and Treat Has provider been notified: No 03/25/24 09:02 Physical Therapy Eval and Treat Routine Reason for consultation: gait training Has provider been notified: No Attending physician on discharge: Shaikh Mono Discharging clinician: Shaikh Mono Anticipated date of discharge: 03/30/24 DS: Diagnosis Discharge Diagnosis (1) Acute osteomyelitis of right foot: Assessment and plan: sec to MRSA. Will need IV Vancomycin for a minimum of 4 weeks. Patient will be established with ID as outpatient. Podiatry will handle the outpatient referral. He will return for elective debridement and great toe amputation on . Patient medically stable for discharge. Complication of poorly controlled T2 DM (2) Cellulitis: Assessment and plan: Cellulitis due to E Feacalis/MRSA and Klebsiella. Due to poorly controlled T2 DM Will need oral Augmentin for Klebsiella/E feacalis. IV vancomycin for MRSA as there was bone involvement. Qualifiers: Laterality: right Site of cellulitis: extremity Site of cellulitis of extremity: lower extremity Qualified Code(s): L03.115 - Cellulitis of right lower limb (3) Abscess of right foot: Assessment and plan: s/p I&D. Will need amputation, planned for . Complication of DM neurOpathy and poorly controlled T2 DM (4) Pneumonia: Assessment and plan: No resp complaints but infiltrate noted on CX along with hypoxia. Unable to wean off of O2. Likely has underlying COPD/MURALI Will need outpatient testing/work up. Qualifiers: Pneumonia type: due to unspecified organism Laterality: bilateral Lung location: lower lobe of lung Qualified Code(s): J18.9 - Pneumonia, unspecified organism (5) Type 2 diabetes mellitus with diabetic polyneuropathy: Assessment and plan: Poorly controlled. A1C of 10. Will discharge on oral metformin/glipizide and Levemir 30 Units Will need close f/u with PCP as outpatient. 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 likely multifactorial and due to COPD/MURALI. Will need outpatient w/u (7) Smoker: Assessment and plan: Discussed smoking cessation. (8) MURALI (obstructive sleep apnea): Assessment and plan: Previously told that he has MURALI. Will need outpatient eval. DS: Summary Hospital Course Hospital Course: 63 y o male with hx of poorly controlled T2 DM presented with RLE pain/swelling and erythema. Admitted for diabetic foot infection/cellulitis and abscess. Underwent I&D and debridement. Bone cx positive for MRSA. Superficial wound cx also growing E Feacalis and Klebsiella along with MRSA. Patient was treated with IV vancomycin/zosyn while in the hospital. He underwent debridement/I&D twice while inpatient. Planned for debridement/possible amputation on for which he will return as outpatient. He was also noted to have hypoxia requiring O2 supplementation via NC for unclear reason. He seems to have undiagnosed COPD/MURALI but there were possible infiltrates noted on CXR. Of note, he has no resp symptoms or complaints. Patient will need home O2 for COPD/MURALI and will need outpatient w/u and f/u for it. During the course of admission, patient was extremely non compliant with activity restrictions and intermittently had anger outburst and was overall very rude and hostile towards caregivers and nursing staff. I suspect due to his non compliance he will end up needing BKA if he does not follow up with treatment plan. Patient is medically stable for discharge on IV vancomycin for MRSA OM. He will also need PO abx for Cellulitis Patient will return for debridement/amputation on . Status at Discharge Overall status at discharge: patient is progressing back to baseline Time Spent with Patient Time attestation: Total time spent providing and/or coordinating discharge services: Time spent: greater than 30 minutes Exam Constitutional Vital Signs, click to edit/add: Last Vital Signs Temp 98.1 F 03/30/24 08:32 Pulse 80 03/30/24 08:32 Resp 16 03/30/24 08:32 BP 100/63 03/30/24 08:32 Pulse Ox 91 L 03/30/24 08:32 O2 Del Method Nasal Cannula 03/30/24 08:32 O2 Flow Rate 4 03/30/24 08:32 Common normals: oriented x3 Nutritional appearance: obese Respiratory Common normals: normal respiratory effort and no use of accessory muscles Effort & inspection: able to speak in complete sentences Auscultation: clear to auscultation bilaterally Cardio Common normals: no JVD, S1 normal heart sound and S2 normal heart sound Extremity Other: Post op dressing in place. Wound vac removed. Neuro Common normals: moves all extremities, no focal motor deficits and no sensory deficits noted Psych Common normals: mental status grossly normal, thought process normal, denies homicidal ideation and denies suicidal ideation Attitude: calm and engaged Mood and affect: irritable DS: Data Data Completed and Pending Labs on day of discharge: Labs from last 24 hours 03/30/24 03/30/24 03/29/24 07:58 05:50 20:38 WBC 13.5 H RBC 4.36 L Hgb 13.8 L Hct 43.3 MCV 99.3 H MCH 31.7 MCHC 31.9 RDW 14.1 Plt Count 381 MPV 10.2 Neut % (Auto) 67.8 Lymph % (Auto) 10.2 L [place] % (Auto) 10.3 Eos % (Auto) 2.0 Baso % (Auto) 0.6 Neut # (Auto) 9.1 H Lymph # (Auto) 1.4 [place] # (Auto) 1.4 H Eos # (Auto) 0.3 Baso # (Auto) 0.1 Abs Immat Gran (auto) 1.22 H Imm/Tot Granulo (auto) 9.1 H Sodium 135 L Potassium 4.3 Chloride 99 Carbon Dioxide 33.1 H Anion Gap 7.2 BUN 19.0 H Creatinine 0.91 Est GFR ( Amer) >60 Est GFR (Non-Af Amer) >60 BUN/Creatinine Ratio 20.9 Glucose 191 H Calcium 9.3 POC Glucose 264 H 222 H 03/29/24 03/29/24 16:06 11:07 WBC RBC Hgb Hct MCV MCH MCHC RDW Plt Count MPV Neut % (Auto) Lymph % (Auto) [place] % (Auto) Eos % (Auto) Baso % (Auto) Neut # (Auto) Lymph # (Auto) [place] # (Auto) Eos # (Auto) Baso # (Auto) Abs Immat Gran (auto) Imm/Tot Granulo (auto) Sodium Potassium Chloride Carbon Dioxide Anion Gap BUN Creatinine Est GFR ( Amer) Est GFR (Non-Af Amer) BUN/Creatinine Ratio Glucose Calcium POC Glucose 291 H 201 H Preliminary micro results at discharge 03/25/24 09:40 Aerobic Culture - Preliminary Foot Right Staphylococcus aureus 03/24/24 11:27 - Preliminary Blood - Right Antecubital NO GROWTH AT 5 DAYS. 03/25/24 09:40 - Preliminary Foot Right 03/25/24 10:00 - Preliminary Toe Right Great 03/25/24 09:40 - Preliminary Foot Right 03/24/24 11:27 - Preliminary Bld Spc Aerobic Bld [place] Staphylococcus aureus 03/25/24 10:00 - Preliminary Toe Right Great 03/25/24 10:00 Tissue Culture - Preliminary Toe Right Great Staphylococcus aureus Discharge Plan Discharge Disposition: Home Health Service Condition: Fair Discharge Medications: New glipizide 5 mg tablet 5 mg PO BID Qty: 60 0RF Rx Instructions: Use within 30 minutes of meal insulin detemir U-100 100 unit/mL (3 mL) insulin pen 30 unit subcut QPM 30 Days Qty: 9 0RF (DME) pen needle, diabetic 31 gauge x 5/16 needle See Rx Instructions .Route Qty: 50 0RF Rx Instructions: once daily amoxicillin-pot clavulanate 875-125 mg tablet 1 tab PO BID Qty: 20 0RF Continued meclizine 25 mg tablet 25 mg PO TID PRN (Reason: dizziness) Changed metformin 1,000 mg tablet 1,000 mg PO BID Qty: 0 0RF Discontinued glimepiride 2 mg tablet 2 mg PO DAILY Print Language: Spanish Forms: Portal Instructions Follow Up Appointments: @ 9:30am with [facility] [address] [place] [address] , [place] [phone]
--- NOTE | 2024-03-30 10:47 | SWNOTE1 ---
JOSÉ had message from [facility] and they can not accept due to pt not being established with a PCP. JOSÉ spoke with doctor and case management. Pt will need to return on for an I&D. At this point it would be more beneficial to set pt up as an [facility] pt (he does have a ride here) versus continuing to try and find a company that will follow when pt does not have a PCP. SW to try and find a new PCP for pt before he is discharged. Pt also needs home oxygen. He does not have many options due to hsi [employer] insurance. [facility] and possibly [facility]. JOSÉ has a message out to [facility]. JOSÉ sent referral to [facility] for home oxygen. JOSÉ faxed down script to [facility]. JOSÉ received confirmation that fax went through.
[2024-03-30 11:08] LABS: Vancomycin Trough 8.4 ug/mL (5.0-20.0)
--- NOTE | 2024-03-30 11:22 | SWNOTE1 ---
SW spoke with pt with case management in room. Pt is agreeable to [facility] and will have a friend bring him in tomorrow. The same friend will pick him up today. He is alright with any DME company for home oxygen, is aware no smoking with the tank. Pt will be back for an I&D. Pt spoke about crutches, but feels he will find someone that has them. He has a walker at home and quad cane. Pt has no worked with PT since 03/25, will attempt to have PT come back in and work with pt.
[2024-03-30 11:36] LABS: Glucometer 256 mg/dL (74-106)
--- NOTE | 2024-03-30 12:17 | CM.NOTE ---
[facility] form faxed to [facility] and delivered to Pharmacy and [facility] clinic. Discussed with pharmacy times for pt, pt will received 11:00 dose today and then start in [facility] tomorrow. Discussed with [facility] Chuck Almendarez about times. Pt will start /10 BID 09:00 and 21:00.
[2024-03-30] MEDS: VANCOMYCIN HCL 1,000 MG in 0.9 % SODIUM CHLORIDE 250 ML 250 MG IV (12:18)
--- NOTE | 2024-03-30 12:33 | CM.NOTE ---
2nd Notice of Important Message From Medicare discussed with pt, pt denies any questions or concerns.
--- NOTE | 2024-03-30 14:33 | CM.NOTE ---
Message left with [facility] to see if new referral has been accepted and pt can discharge to home.
--- NOTE | 2024-03-30 16:32 | SWNOTE1 ---
JOSÉ has attempted to call [facility] several times for pt's home oxygen. Several times [facility] did not answer. JOSÉ finally spoke with Gloria and she voiced that it is in the insurance hands and they can't disperse until the insurance approves. JOSÉ called [employer], pt's insurance, and they voiced they do not see anything in his file about oxygen to approve. JOSÉ called [facility] back and left a voicemail. JOSÉ called [facility] at 4:30pm and spoke to Gloria. Gloria voiced they have not received anything back from [employer]. JOSÉ asked Gloria if she left at 5:00 and she does, but there is always after hours service. SW to continue to call after hours to see if pt's insurance has approved. JOSÉ updated nursing and pt.
[2024-03-30 16:35] LABS: Glucometer 155 mg/dL (74-106)
--- NOTE | 2024-03-30 16:50 | SWNOTE1 ---
JOSÉ spoke to pt about how [facility] will allow him to go home with tanks and then if [employer] does not cover oxygen then pt will be responsible for cost of oxygen and will have to sign an ABN form. Pt has agreed to sign form once home and will pay if insurance does not cover. Pt will discharged home on home oxygen, 4 liters. Nursing is aware. JOSÉ let [facility] know that pt is leaving today.
--- NOTE | 2024-03-31 13:54 | SWNOTE1 ---
JOSÉ called Dara Eisenberg's office and set up pt with a follow up for 2:00 on 04/05/24. JOSÉ called and notified pt.
--- NOTE | 2024-03-31 13:57 | CM.DCFOLLOWU ---
Person spoke with: patient How are you feeling?well How is your pain? minimal Did you understand your discharge instructions? yes Do you have any questions about your discharge instructions?no Were you given any prescriptions at discharge?yes Were you able to get your prescriptions filled? has not filled them yet, voiced he will today. Advised pt that he needs to fill them so he does not end up back at hospital Do you understand how to take your medications as ordered? yes Do you have any questions about your follow up appointment and do you plan to keep your follow up appointment? no questions, reviewed follow ups Is there anything else that you would like to discuss? no Questions/Comments/Concerns/Other: none
--- NOTE | 2024-04-05 09:10 | SWNOTE1 ---
JOSÉ received a call from [facility] and pt is now refusing the home oxygen. [facility] just wanted to make the doctor aware that pt is refusing. At this time SW to let director of the floor know to see if any further action needs to be taken.
--- NOTE | 2024-04-05 10:18 | SWNOTE1 ---
JOSÉ called down to [facility] and pt was here for his infusion. SW went down to speak with pt about his home oxygen. Pt voiced that he received an email after getting his oxygen that [employer] is not going to cover. Pt read the email to SW. SW expressed that the email was in regards to a medication not his oxygen. Pt still thinks it was the home oxygen. He had called and left a threatening voicemail for his insurance and with the drivers of [facility]. The trencher driver from [facility] came back with 2 insurance application investigator and they tried to explain that the insurance will pay for it, but they ended up taking the oxygen as pt refused to keep it as he believed the insurance was not going to pay for it. SW asked if pt felt short of breath. Pt expressed he has been feeling fine. Pt then spoke about his frustrations with insurance and that his yaya that gives him a ride was arrested, but was released. He voiced he has a follow up with Dara Eisenberg today. He asked when his follow up with Dr. Curtis is? JOSÉ went to office and called Sis office and confirmed it is 04/09/24 at 9:30am. JOSÉ wrote it down and gave pt the information. At this time pt has no further needs.
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
== END 2024-03-30 17:45 | disposition home or self-care (01) | DRG 853 ==
LOC: ER 13:22 → MS 13:42
PROVIDERS: Family Medicine; Podiatrist Foot & Ankle Surgery; Admitting Provider Internal Medicine; Emergency Provider Emergency Medicine; Visit Provider Internal Medicine
PROC: 0JBQ0ZZ Excision of Right Foot Subcutaneous Tissue and Fascia, Open Approach (ICD-10-PCS; principal; 2024-03-25 08:30)
PROC: 0QBN0ZZ Excision of Right Metatarsal, Open Approach (ICD-10-PCS; principal; 2024-03-29 07:30)
DX: A41.9 Sepsis, unspecified organism (principal); J18.9 Pneumonia, unspecified organism; E44.0 Moderate protein-calorie malnutrition; L03.115 Cellulitis of right lower limb; J44.1 Chronic obstructive pulmonary disease with (acute) exacerbation; L02.611 Cutaneous abscess of right foot; M86.171 Other acute osteomyelitis, right ankle and foot; E87.1 Hypo-osmolality and hyponatremia; J96.11 Chronic respiratory failure with hypoxia; J44.0 Chronic obstructive pulmonary disease with (acute) lower respiratory infection; E11.69 Type 2 diabetes mellitus with other specified complication; E11.628 Type 2 diabetes mellitus with other skin complications; E11.65 Type 2 diabetes mellitus with hyperglycemia; E11.42 Type 2 diabetes mellitus with diabetic polyneuropathy; I10 Essential (primary) hypertension; E11.621 Type 2 diabetes mellitus with foot ulcer; L97.514 Non-pressure chronic ulcer of other part of right foot with necrosis of bone; B95.62 Methicillin resistant Staphylococcus aureus infection as the cause of diseases classified elsewhere; D75.1 Secondary polycythemia; G47.33 Obstructive sleep apnea (adult) (pediatric); F17.210 Nicotine dependence, cigarettes, uncomplicated; Z90.89 Acquired absence of other organs; Z90.49 Acquired absence of other specified parts of digestive tract; Z79.899 Other long term (current) drug therapy; Z98.890 Other specified postprocedural states; Z87.19 Personal history of other diseases of the digestive system; Z79.84 Long term (current) use of oral hypoglycemic drugs; Z91.199 Patient's noncompliance with other medical treatment and regimen due to unspecified reason; B96.1 Klebsiella pneumoniae [K. pneumoniae] as the cause of diseases classified elsewhere; B95.2 Enterococcus as the cause of diseases classified elsewhere; Z68.39 Body mass index [BMI] 39.0-39.9, adult; Z87.898 Personal history of other specified conditions
CPT/HCPCS: 36415; 36592; 36593; 71045; 73630; 80048; 80053; 80202; 80307; 82948; 83036; 83605; 83880; 84484; 85007; 85025; 85027; 85610; 85652; 86140; 87040; 87070; 87075; 87102; 87116; 87150; 87176; 87186; 87205; 87206; 93005; 93970; 94640; 94667; 94668; 94761; 96365; 96366; 96367; 96368; 96375; 96376; 97116; 99285; 99406; 99999; A9272; C1887; J0295; J0665; J1885; J2543; J2704; J3010; J3370

== ENCOUNTER 2024-04-06 11:51 | Outpatient (OUT) | payer OTHER, SELFPAY ==
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
== END 2024-04-06 11:52 | disposition home or self-care (01) ==
LOC: WC 11:51
PROVIDERS: Visit Provider Physician Assistant
DX: T81.89XA Other complications of procedures, not elsewhere classified, initial encounter (principal)
CPT/HCPCS: G0463

== ENCOUNTER 2024-04-06 15:25 | Outpatient (OUT) | payer OTHER, SELFPAY ==
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
== END 2024-04-06 15:26 | disposition home or self-care (01) ==
LOC: PST 15:25
PROVIDERS: Visit Provider Podiatrist Foot & Ankle Surgery
DX: Z01.818 Encounter for other preprocedural examination (principal); E11.69 Type 2 diabetes mellitus with other specified complication; M86.8X7 Other osteomyelitis, ankle and foot

== ENCOUNTER 2024-04-07 07:31 | Outpatient (RCR) | payer OTHER, SELFPAY ==
[2024-03-31 09:22] VITALS: BP 147/66; PULSE 84; TEMP 36.4; O2SAT 88
[2024-03-31] MEDS: VANCOMYCIN HCL 1,500 MG in 0.9 % SODIUM CHLORIDE 500 ML 250 MG IV ×2 (09:34→21:15)
--- NOTE | 2024-03-31 15:24 | PC.NURSE ---
1145 IV vancomycin infused, flushed picc with NS. CHG cap placed. Released per wheelchair to private auto
[2024-03-31 21:10] VITALS: BP 145/67; PULSE 74; TEMP 36.8; O2SAT 94
--- NOTE | 2024-03-31 21:35 | PC.NURSE ---
PICC line in place in the rt upper arm. Good blood return noted and PICC line flushed prior to starting Vancomycin 1500mg IVPB
--- NOTE | 2024-03-31 21:39 | PC.NURSE ---
Pt arrives per for IV Vancomycin. Pt moves from WC to recliner chair. PICC line in the rt upper arm checked for blood return then flushed. Vancomycin then up to infuse over 2 hours (1500mg in 500cc NS) VS done. Pt's legs elevated in recliner. Pt has a OCL splint on to the rt lower leg. Great toe and 2nd and little bit of the tips of the toes visable. Toes are covered with dried blood. Visable areas cleansed. Pt states that he is not suppose to put wt on his leg but its hard to get around with out putting weight on it Pt state that he does have a walker, cane and a wheelchair at home. Pt also states that he is suppose to have home health coming in but has not seen them yet. Pt states that he is going to call them tomorrow. Pt is on room air on arrival but while sitting in the chair states that he normally wears 4L of O2. O2 applied. Sats on room air 93-94%. O2 applied and sats increased to 96%. Pt resting in recliner, Call light in reach and pt watching TV. Pt given some diet pop to drink. No other needs at this time.
[2024-04-01 10:50] VITALS: BP 128/65; PULSE 75; TEMP 36.6; O2SAT 88
[2024-04-01] MEDS: VANCOMYCIN HCL 1,500 MG in 0.9 % SODIUM CHLORIDE 500 ML 250 MG IV (11:06)
--- NOTE | 2024-04-01 11:43 | PC.NURSE ---
1050: Pt. arrives to [facility] via w/c 2hrs late with friend. Pt. stated his friend had stuff to do. Stressed to pt. the importance of being on time for antibiotic schedule. Pt. relays understanding. VSS. 1106: IV Vancomycin initiated at this time. Breakfast tray ordered for pt.
[2024-04-02] MEDS: VANCOMYCIN HCL 1,500 MG in 0.9 % SODIUM CHLORIDE 500 ML 250 MG IV (09:30)
[2024-04-02 09:33] VITALS: BP 116/67; PULSE 77; TEMP 36.4; O2SAT 91
[2024-04-03] MEDS: VANCOMYCIN HCL 1,500 MG in 0.9 % SODIUM CHLORIDE 500 ML 250 MG IV (10:26)
[2024-04-04] MEDS: VANCOMYCIN HCL 1,500 MG in 0.9 % SODIUM CHLORIDE 500 ML 250 MG IV (09:27)
[2024-04-04 09:29] VITALS: BP 122/74; PULSE 74; TEMP 36.7; O2SAT 91
[2024-04-05] MEDS: VANCOMYCIN HCL 1,500 MG in 0.9 % SODIUM CHLORIDE 500 ML 250 MG IV (09:22)
[2024-04-05 09:25] VITALS: BP 130/59; PULSE 70; TEMP 36.4; O2SAT 88
[2024-04-05 09:51] LABS: Basophils Absolute Auto 0.1 10^3/uL (0.0-0.1); Basophils Percent Auto 0.6 % (0.2-2.0); Eosinophils Absolute Auto 0.3 10^3/uL (0.0-0.7); Eosinophils Percent Auto 2.1 % (0.9-7.0); Hematocrit 41.9 % (42.0-54.0); Hemoglobin 13.7 g/dL (14.0-18.0); Immature Granulocytes Abs Auto 0.46 10^3/uL (0.00-0.03); Immature Granulocytes Pct Auto 2.9 % (0.0-0.5); Lymphocytes Absolute Auto 2.3 10^3/uL (1.2-3.8); Lymphocytes Percent Auto 14.7 % (20.5-60.0); Mean Corpuscular HGB Conc 32.7 g/dL (29.9-35.2); Mean Corpuscular Hemoglobin 31.5 pg (25.9-34.0); Mean Corpuscular Volume 96.3 fL (80.0-94.0); Mean Platelet Volume 10.2 fL (9.5-13.5); Monocytes Absolute Auto 1.2 10^3/uL (0.3-0.8); Monocytes Percent Auto 7.8 % (1.7-12.0); Neutrophils Absolute Auto 11.4 10^3/uL (1.4-6.5); Neutrophils Percent Auto 71.9 % (43.0-75.0); Platelet Count 475 10^3/uL (150-450); Red Blood Count 4.35 10^6/uL (4.70-6.10); White Blood Count 15.8 10^3/uL (4.0-11.0)
[2024-04-05 10:35] LABS: Alanine Aminotransferase 24 U/L (16-63); Albumin Globulin Ratio 0.4; Albumin Level 2.1 g/dL (3.4-5.0); Alkaline Phosphatase 98 U/L (46-116); Anion Gap 8.7; Aspartate Amino Transferase 10 U/L (15-37); BUN Creatinine Ratio 14.3; Bilirubin Total 0.5 mg/dL (0.2-1.0); C Reactive Protein 4.45 mg/dL (<=0.50); Calcium 10.1 mg/dL (8.5-10.1); Carbon Dioxide 31.7 mmol/L (21.0-32.0); Chloride 98 mmol/L (98-107); Estimated GFR (African America >60 (>=60); Estimated GFR (Non-African Ame >60 (>=60); Globulin 5.3 g/dL; Glucose 295 mg/dL (74-106); Potassium 4.4 mmol/L (3.5-5.1); Sodium 134 mmol/L (136-145); Total Protein 7.4 g/dL (6.4-8.2)
[2024-04-05 11:03] LABS: Erythrocyte Sedimentation Rate >130 mm/hr (<=20)
--- NOTE | 2024-04-05 15:16 | PC.NURSE ---
0915 Labs drawn from picc prior to initiating iv vancomycin. 1115 Picc dressing removed from rt upper arm picc site. Site clear, no reddness or drainage noted. Using sterile technique, site and surrounding skin cleansed with chg prep sponge, allowed to dry, skin prep applied. followed by stat lock and chg dressing. dressing date and timed. caps changed, chg caps applied.
--- NOTE | 2024-04-05 15:18 | PC.NURSE ---
1130 Patient wheeled to vehicle.
[2024-04-06 08:25] VITALS: BP 136/81; PULSE 52; TEMP 36; O2SAT 93
[2024-04-06] MEDS: VANCOMYCIN HCL 1,500 MG in 0.9 % SODIUM CHLORIDE 500 ML 250 MG IV (08:52)
--- NOTE | 2024-04-06 08:53 | PC.NURSE ---
0825: Pt. to [facility] amb. for daily antibiotics. Seated in recliner. VSS. PICC line intact to right upper arm and without s&s of infection or infiltration. Dressing to right lower leg in place and held together at foot with packaging tape. Dressing with visible dirt and dried blood. Pt. states he is to see Dr. Curtis today for dressing change. Breakfast tray ordered. 0852: IV Vancomycin initiated as ordered. Eating breakfast. Denies needs.
[2024-04-06 09:26] VITALS: O2SAT 88
--- NOTE | 2024-04-06 11:22 | PC.NURSE ---
1100: IV Vancomycin completed at this time. Picc line flushed with saline and capped. Pt. relays he is not going to come in for evening dose because its too much for him and not leaving hospital until midnight. This RN will notify attending physician. Pt. d/c'd amb. to home.
[2024-04-07 09:35] VITALS: PULSE 70; TEMP 36.1; O2SAT 88
[2024-04-07] MEDS: VANCOMYCIN HCL 1,500 MG in 0.9 % SODIUM CHLORIDE 500 ML 250 MG IV (09:59)
--- NOTE | 2024-04-07 10:05 | PC.NURSE ---
0935: Pt. to [facility] via w/c accompanied by friend. Seated in recliner. VSS. Right upper arm PICC line in place and without s&s of infection. Flushes easily with good blood return on aspiration. Breakfast tray ordered for pt. O2 @ 2L n/c applied for Spo2 88%.
--- NOTE | 2024-04-07 10:07 | PC.NURSE ---
0959: IV Vancomycin initiated as ordered. Eating breakfast, denies needs.
--- NOTE | 2024-04-07 12:06 | PC.NURSE ---
1200: Vancomycin infusion completed without s&s of adverse reaction. PICC line flushed and re-capped. Taken to bathroom. 1212: D/c'd via w/c and sitting outside waiting for ride.
== END 2024-04-19 23:59 | disposition home or self-care (01) ==
LOC: INF 07:31
PROVIDERS: Visit Provider Internal Medicine
DX: T81.89XA Other complications of procedures, not elsewhere classified, initial encounter (principal); M86.10 Other acute osteomyelitis, unspecified site; B95.62 Methicillin resistant Staphylococcus aureus infection as the cause of diseases classified elsewhere
CPT/HCPCS: 36591; 36592; 80053; 85025; 85652; 86140; 96360; 96365; 96366; G0463; J3370

== ENCOUNTER 2024-04-08 08:48 | Day surgery (SDC) | payer OTHER, SELFPAY ==
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
[2024-04-08 09:00] VITALS: BP 162/90; PULSE 80; TEMP 36.6; O2SAT 92; BMI 41.9
[2024-04-08 09:01] LABS: Basophils Absolute Auto 0.1 10^3/uL (0.0-0.1); Basophils Percent Auto 0.4 % (0.2-2.0); Eosinophils Absolute Auto 0.2 10^3/uL (0.0-0.7); Eosinophils Percent Auto 1.7 % (0.9-7.0); Hematocrit 45.1 % (42.0-54.0); Hemoglobin 14.7 g/dL (14.0-18.0); Immature Granulocytes Abs Auto 0.15 10^3/uL (0.00-0.03); Immature Granulocytes Pct Auto 1.1 % (0.0-0.5); Lymphocytes Absolute Auto 1.7 10^3/uL (1.2-3.8); Lymphocytes Percent Auto 12.5 % (20.5-60.0); Mean Corpuscular HGB Conc 32.6 g/dL (29.9-35.2); Mean Corpuscular Hemoglobin 31.1 pg (25.9-34.0); Mean Corpuscular Volume 95.6 fL (80.0-94.0); Mean Platelet Volume 9.8 fL (9.5-13.5); Monocytes Percent Auto 7.3 % (1.7-12.0); Neutrophils Absolute Auto 10.3 10^3/uL (1.4-6.5); Platelet Count 482 10^3/uL (150-450); Red Blood Count 4.72 10^6/uL (4.70-6.10); Red Cell Distribution Width 13.9 % (11.0-15.0); White Blood Count 13.3 10^3/uL (4.0-11.0)
[2024-04-08 09:09] LABS: Anion Gap 6.8; BUN Creatinine Ratio 15.5; Calcium 10.6 mg/dL (8.5-10.1); Carbon Dioxide 34.6 mmol/L (21.0-32.0); Chloride 98 mmol/L (98-107); Estimated GFR (African America >60 (>=60); Estimated GFR (Non-African Ame >60 (>=60); Glucose 178 mg/dL (74-106); Potassium 4.4 mmol/L (3.5-5.1); Sodium 135 mmol/L (136-145)
--- NOTE | 2024-04-08 09:30 | XR_ITS ---
[address] [address] Patient Name: TYLER SMITH MRN: [id number] date: 1960 Sex: M Assigned Patient Location: [facility] Current Patient Location: [facility] Accession/Order Number: [id number] Exam Date: 04/08/2024 09:25 Report Date: 04/08/2024 10:02 At the request of: JAMIE CARROLL Procedure: XR chest 1V EXAMINATION: XR chest 1V HISTORY: pic line placement COMPARISON: 03/27/2024 TECHNIQUE: AP portable erect FINDINGS: LUNGS: Bibasilar linear opacities, atelectasis favored. No additional focal parenchymal infiltrates VASCULATURE: No increased pulmonary vasculature. PLEURA: No pneumothorax, effusion, or pleural thickening. CARDIAC: No cardiomegaly or cardiac silhouette abnormality. MEDIASTINUM: No visible mass or adenopathy. BONES: No fracture or visible bone lesion. OTHER: Right PICC catheter tip projects over the mid superior vena cava XR/XR chest 1V IMPRESSION: PICC catheter tip projects over the mid superior vena cava, normal position Electronically authenticated by: PRESTON MILAN Date: 04/08/2024 10:02
--- NOTE | 2024-04-08 10:29 | PM.ORONB ---
Brief Operative Note Date of procedure: 04/08/24 Pre-op diagnosis general: Right foot acute osteomyelitis with necrotic diabetic foot ulcer with bone necrosis, MRSA Post-op diagnosis: same as pre-op Procedure: Procedure performed: Right transmetatarsal amputation and application of total contact cast Indications for procedure: Patient is a 63-year-old male with uncontrolled type 2 diabetes, COPD, active smoker, hypertension and noncompliance. He does not routinely take his prescribed medications for diabetes or hypertension. Hemoglobin A1c recently was 10.0. I initially met him on 03/24/24 at which time he was admitted for severe diabetic foot infection with sepsis. Less than 12 hours later he underwent extensive I&D evacuating multiple extensive purulence from his great toe extending along his extensor tendons to the level of his ankle. In our initial discussions he was very adamant against any amputation despite me being very clear that at minimum his great toe and first ray was not salvageable given the extent and severity of his infection. He was scheduled for repeat I&D later that week but was demanding to be discharged and on multiple occasions was very unpleasant to staff. Fortunately he was stable and IV antibiotics via PICC line was arranged and he was discharged last week. He followed up with me earlier this week and I had another long and quite carter discussion with him regarding the seriousness of his illness and that he is at extraordinarily high risk of major amputation (BKA versus AKA). I recommended in order to save his leg his best option would be for a partial foot amputation however given the extent of his wound and necrosis he would still likely have many months of wound care and prolonged need for antibiotics. He did agree to undergo amputation but has refused to be admitted after the procedure. I again discussed that this is not ideal and places him at higher risk for complication and he remained adamant that he would not stay in the hospital. I did discuss the case with anesthesia who agreed with my assessment that due to his uncontrolled diabetes and high blood pressure he is at higher risk for perioperative complication. I did offer referral to tertiary facility and he also refused this. Further in the office as well as when he was admitted and today I related that he should be nonweightbearing in a snf facility would be ideal to help care for himself given that he lives alone. He has refused this as well. He did relate that he has arranged for someone to stay with him tonight and he will walk only when absolutely necessary and to his heel therefore I recommended total contact casting to reduce pressure and tension on the soft tissues. He will need close follow-up and he is scheduled for appointment with infectious disease, Dr. Trujillo on Friday. Currently patient is prescribed vancomycin twice daily however patient will only come in for infusions once daily so I am concerned that his antibiotic coverage is currently not adequate which is clearly because of his refusal for appropriate care. His inflammatory markers remain severely high and his white count also remains high. Fortunately his creatinine has been stable. Intraoperative findings: Necrotic wound on medial foot with exposed first metatarsal which measured 8.2 x 5.5 cm. Necrotic wound in the first interdigital space which measured 4.4 x 1.0 cm. Fibrogranular wound on dorsal midfoot which measured 0.5x0.6 cm. No purulence or cellulitis. +2 pitting edema bilaterally with varicose veins. Great toe was dusky and nonviable. Distal first metatarsal with discoloration and consistent with chronic infection. Proximal metatarsals of normal appearance of bone with normal quality/hardness. All questionable and carter necrotic tissue excised. Procedure in detail: Patient was identified in preoperative holding and correct side and site were marked and consent was obtained. Patient is receiving scheduled vancomycin and no additional antibiotics were given. Patient was hypertensive at 162/90 and blood sugars were less than 180. Patient was brought back to the operating room placed on table in supine position with a thigh tourniquet. IV sedation was administered and the right lower extremity was prepped and draped in usual sterile fashion. Formal timeout was performed. An ankle block was then performed utilizing 20 cc of 1% lidocaine plain. The right lower extremity was elevated for several minutes then the tourniquet was inflated. Preoperative wound measurements were obtained then a fishmouth incision was placed over the forefoot which incorporated the medial and first interdigital space wounds. Incision was taken down to bone both dorsally and plantarly then blunt dissection along the metatarsal shafts was performed allowing full-thickness plantar and dorsal flaps to be created. Then a sagittal saw was used to perform dorsal to plantar osteotomies of each of the metatarsals taking care to maintain a parabola and to ensure all questionable bone would be excised. In doing so this created a fairly proximal transmetatarsal amputation however the insertion of the tibialis anterior and peroneus brevis was spared. Once osteotomies were performed of all the metatarsals the forefoot could be amputated which was passed the table for specimen. Then any remaining questionable tissue was sharply excised and the surgical site was irrigated with 3 L of normal saline on pulse lavage. The tourniquet was deflated ensuring all tissue perfused appropriately and bleeders were coagulated. Ana and vancomycin powder was placed into the surgical site and retention sutures were temporarily placed to reapproximate the dorsal and plantar flaps. Then closure with a single layer of skin suture was performed and the retention sutures were removed. A dry sterile dressing was applied while packing the small wound on the dorsal foot. Then a well-padded total contact cast was applied accordingly using the [employer] system Patient tolerated the procedure and anesthesia well and will be transported to the recovery room for postoperative monitoring. Once hemostasis is ensured the temporary dressing will be removed and a total contact cast will be applied. If the patient remains stable in the postoperative area plan is to be discharged home. Postoperative plan: Discharge home under friend's care Partial weightbearing to the right heel with use of cane/walker -patient instructed to only bear weight for absolutely necessary activities such as going to the bathroom Elevate above the level of the heart Patient will present to the wound center tomorrow morning if there is any strikethrough otherwise we will follow-up early next week for cast change Continue IV antibiotics which may be adjusted by infectious disease on Friday Patient instructed to go to the emergency department if there is any concern whatsoever. Anesthesia: [facility] Surgeon: Rc Curtis Estimated blood loss (mL): 25 Tourniquet time (min): 23 Pathology: other (partial foot amputation; proximal/clean bone culture from first metatarsal) Condition: stable Disposition: PACU
--- NOTE | 2024-04-08 11:00 | CM.NOTE ---
Discussed with Marcela Gatica about pt's MARCIE order for IV antibiotics and that pt would require a new order after surgical procedure performed. Marcela spoke with Dr. Curtis and pt will f/u with infectious disease for further orders.
--- NOTE | 2024-04-08 11:22 | CM.NOTE ---
Talked with Marcela Najera regarding pt's MARCIE order and that he would require a new order after surgical procedure.
[2024-04-08] MEDS: LIDOCAINE HCL 1% 100 MG/10 ML MDV 20 ML INJ (12:01)
[2024-04-08] MEDS: VANCOMYCIN HCL 1,000 MG VIAL 2000 MG TOPICAL (12:30)
--- NOTE | 2024-04-08 12:42 | XR_ITS ---
[address] [address] Patient Name: TYLER SMITH MRN: [id number] date: 1960 Sex: M Assigned Patient Location: [facility] Current Patient Location: [facility] Accession/Order Number: [id number] Exam Date: 04/08/2024 14:30 Report Date: 04/12/2024 07:46 At the request of: CURT OLSON Procedure: XR foot RT min 3V PROCEDURE: XR foot RT min 3V COMPARISON: 03/29/2024 HISTORY: osteomyelitis FINDINGS: BONES:Forefoot Amputation along the proximal metatarsals diaphyses. No acute fracture or dislocation. Minimal degenerative changes with marginal osteophyte formation. No focal lytic or sclerotic changes SOFT TISSUES:Negative. No visible soft tissue swelling. EFFUSION:None visible. OTHER: Negative. XR/XR foot RT min 3V IMPRESSION: Interval forefoot amputation Electronically authenticated by: PRESTON MILAN Date: 04/12/2024 07:46
[2024-04-08] MEDS: VANCOMYCIN HCL 1,500 MG in 0.9 % SODIUM CHLORIDE 500 ML 250 MG IV (13:05)
[2024-04-08 13:46] VITALS: BP 87/46; PULSE 62; TEMP 36.1; O2SAT 90
[2024-04-08 14:12] LABS: Glucometer 180 mg/dL (74-106)
[2024-04-08 14:16] VITALS: BP 109/52; PULSE 57; O2SAT 96
[2024-04-08 14:46] VITALS: BP 102/74; PULSE 68; O2SAT 92
== END 2024-04-08 15:05 | disposition home or self-care (01) ==
PROVIDERS: Anesthesiology; PCP Nurse Practitioner Family; Visit Provider Podiatrist Foot & Ankle Surgery
PROC: (CPT 1480; principal; 2024-04-08 09:40)
DX: E11.69 Type 2 diabetes mellitus with other specified complication (principal); M86.171 Other acute osteomyelitis, right ankle and foot; E11.621 Type 2 diabetes mellitus with foot ulcer; L97.514 Non-pressure chronic ulcer of other part of right foot with necrosis of bone; B95.62 Methicillin resistant Staphylococcus aureus infection as the cause of diseases classified elsewhere; J44.9 Chronic obstructive pulmonary disease, unspecified; F17.210 Nicotine dependence, cigarettes, uncomplicated; I10 Essential (primary) hypertension; Z91.199 Patient's noncompliance with other medical treatment and regimen due to unspecified reason; E11.65 Type 2 diabetes mellitus with hyperglycemia; T81.89XA Other complications of procedures, not elsewhere classified, initial encounter; Z79.84 Long term (current) use of oral hypoglycemic drugs; Z79.4 Long term (current) use of insulin; G47.33 Obstructive sleep apnea (adult) (pediatric)
CPT/HCPCS: 28805; 36415; 71045; 73630; 80048; 82948; 85025; 87070; 87075; 87102; 87116; 87150; 87176; 87186; 87205; 87206; 88305; 88307; 88311; 99999; J1170; J2250; J2405; J2704; J3010; J3370

== ENCOUNTER 2024-04-12 11:07 | Outpatient (OUT) | payer OTHER, SELFPAY ==
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
== END 2024-04-12 11:08 | disposition home or self-care (01) ==
LOC: WC 11:07
PROVIDERS: PCP Nurse Practitioner Family; Visit Provider Physician Assistant
DX: T87.89 Other complications of amputation stump (principal); T81.89XA Other complications of procedures, not elsewhere classified, initial encounter
CPT/HCPCS: 29445; A6199

== ENCOUNTER 2024-04-20 16:13 | Outpatient (OUT) | payer OTHER, SELFPAY ==
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
== END 2024-04-20 16:14 | disposition home or self-care (01) ==
LOC: WC 16:13
PROVIDERS: PCP Nurse Practitioner Family; Visit Provider Physician Assistant
DX: T87.89 Other complications of amputation stump (principal); T81.89XA Other complications of procedures, not elsewhere classified, initial encounter
CPT/HCPCS: 29445

== ENCOUNTER 2024-04-21 14:22 | Outpatient (RCR) | payer OTHER, SELFPAY ==
--- NOTE | 2024-04-21 15:00 | PC.NURSE ---
1400 Arrival ambulatory with walker, seated in recliner. PICC intact rt upper arm, site clear. patient reclined in recliner, instructed to perform vagal maneuver while removing picc. pressure applied to site x 5 mins, no bleeding noted, tegaderm dressing applied. patient tolerated well. PICC length 40 cm. 1420 No bleeding noted from site. Released ambulatory with walker
== END 2024-05-20 23:59 | disposition home or self-care (01) ==
LOC: INF 14:22
PROVIDERS: PCP Nurse Practitioner Family; Visit Provider Podiatrist Foot & Ankle Surgery
DX: Z45.2 Encounter for adjustment and management of vascular access device (principal)

== ENCOUNTER 2024-04-30 10:30 | Outpatient (OUT) | payer OTHER, SELFPAY ==
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
== END 2024-04-30 10:31 | disposition home or self-care (01) ==
LOC: WC 10:31
PROVIDERS: PCP Nurse Practitioner Family; Visit Provider Podiatrist Foot & Ankle Surgery
DX: T87.89 Other complications of amputation stump (principal)
CPT/HCPCS: 29445

== ENCOUNTER 2024-05-07 11:46 | Outpatient (OUT) | payer OTHER, SELFPAY ==
--- OUTSIDE RECORDS SUMMARY | 2024-05-07 11:49 | XMS_ITS | CCD ---
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 acute Hypertension acute MRSA cellulitis of right foot acute Nicotine dependence acute Non-compliance acute Oxygen dependent acute Type 2 diabetes mellitus acu te Ulcer of right foot due to t ype 2 diabetes mellitus acute Acute osteomyelitis of foot acute Low back pain acute [facility] Work Phone: Summary Purpose Family History Relationship Condition Age at Onset Recorded Date/T [place] mother Malignant neoplasm of cervix Unknown Advance Directives Advance Directive Response Recorded Date/ Time Advance Directives No March 2:40pm Chief Complaint and Reason for Visit Chief Complaint Unknown est, TBH follow up, osteomilitesis right foot Unknown referred by Dr Curtis 4 week f/u Reason for Visit COPD (chronic obstru ctive pulmonary disease) Hypertension MRSA cellulitis of right foot Nicotine dependence Non-compliance Oxygen dependent Type 2 diabetes mellitus Ulcer of right foot due to type 2 diabetes mellitus Acute osteomyelitis of foot Low back pain Chief Complaint Amb Documentation Unknown est, TBH [...] content) DATE CREATED AUTHOR 07/19/2022 [facility] DATE CREATED AUTHOR AUTHOR'S ORGANIZ ATION 04/20/2024 [facility] Care Teams (unrecognized sec tion [...] Dates Dara Eisenberg APRN NP-C Primary Care Provider, Attending Provider Active Start: April 05, 2024 End: April 05, 2024 Team Status: Active Member Role Status Dates Dara Eisenberg APRN NP-C Primary Care Provider, Attending Provider Active Start: April 08, 2024 Team Status: Inactive Member Role Status Dates Dara Eisenberg APRN NP-C Primary Care Provider Active Start: March [id number] End: April 08, 2024 Rc Curtis DPM MS Attending Provider Active Start: April 08, 2024 End: April 08, 2024 Team Status: Inactive Member Role Status Dates ROWDY Moreno Primary Care Provider Active Start: March 222023 End: April 12, 2024 Navdeep Trujillo MD Attending Provider Active Sta rt: April 12, 2024 End: April 12, 2024 Team Status: Inactive Member Role Status Dates Dara Eisenberg APRN RN X RAYAida Primary Care Provider, Attending Provider Active Start: May 03, 2024 End: May 03, 2024 Goals (unrecognized section and content) Goals [...] BE BASED ON THE PRIMARY CLINICAL RECORDS. [email or web address] provides no warranty or guarantee of the accuracy or completeness of information in this document.
== END 2024-05-07 11:47 | disposition home or self-care (01) ==
LOC: WC 11:46
PROVIDERS: PCP Nurse Practitioner Family; Visit Provider Podiatrist Foot & Ankle Surgery
DX: T87.89 Other complications of amputation stump (principal)
CPT/HCPCS: 29445

== ENCOUNTER 2024-05-13 14:09 | Outpatient (OUT) | payer OTHER, SELFPAY ==
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
== END 2024-05-13 14:10 | disposition home or self-care (01) ==
LOC: WC 14:10
PROVIDERS: PCP Nurse Practitioner Family; Visit Provider Physician Assistant
DX: T87.9 Unspecified complications of amputation stump (principal)
CPT/HCPCS: 29445

== ENCOUNTER 2024-05-19 13:55 | Outpatient (OUT) | payer OTHER, SELFPAY ==
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
== END 2024-05-19 13:56 | disposition home or self-care (01) ==
LOC: WC 13:55
PROVIDERS: PCP Nurse Practitioner Family; Visit Provider Physician Assistant
DX: T87.89 Other complications of amputation stump (principal)
CPT/HCPCS: 29445

== ENCOUNTER 2024-05-26 13:55 | Outpatient (OUT) | payer OTHER, SELFPAY ==
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
== END 2024-05-26 13:56 | disposition home or self-care (01) ==
LOC: WC 13:55
PROVIDERS: PCP Nurse Practitioner Family; Visit Provider Physician Assistant
DX: E11.621 Type 2 diabetes mellitus with foot ulcer (principal); L97.412 Non-pressure chronic ulcer of right heel and midfoot with fat layer exposed
CPT/HCPCS: 29445

== ENCOUNTER 2024-06-02 14:40 | Outpatient (OUT) | payer OTHER, SELFPAY ==
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
== END 2024-06-02 14:41 | disposition home or self-care (01) ==
LOC: WC 14:40
PROVIDERS: PCP Nurse Practitioner Family; Visit Provider Physician Assistant
DX: E11.621 Type 2 diabetes mellitus with foot ulcer (principal); L97.412 Non-pressure chronic ulcer of right heel and midfoot with fat layer exposed
CPT/HCPCS: 29445

== ENCOUNTER 2024-06-10 15:29 | Outpatient (OUT) | payer OTHER, SELFPAY | END 2024-06-10 15:30 | disposition home or self-care (01) | LOC: WC 15:29 | PROVIDERS: PCP Nurse Practitioner Family; Visit Provider Physician Assistant | DX: E11.621 Type 2 diabetes mellitus with foot ulcer (principal); L97.412 Non-pressure chronic ulcer of right heel and midfoot with fat layer exposed | CPT/HCPCS: G0463 ==

== ENCOUNTER 2024-06-22 14:05 | Outpatient (OUT) | payer OTHER, SELFPAY | END 2024-06-22 14:06 | disposition home or self-care (01) | LOC: WC 14:05 | PROVIDERS: PCP Nurse Practitioner Family; Visit Provider Podiatrist Foot & Ankle Surgery | DX: E11.621 Type 2 diabetes mellitus with foot ulcer (principal); L97.412 Non-pressure chronic ulcer of right heel and midfoot with fat layer exposed | CPT/HCPCS: G0463 ==

== ENCOUNTER 2024-08-05 15:08 | Outpatient (OUT) | payer OTHER, SELFPAY | END 2024-08-05 15:09 | disposition home or self-care (01) | LOC: WC 15:08 | PROVIDERS: PCP Nurse Practitioner Family; Visit Provider Physician Assistant | DX: E11.621 Type 2 diabetes mellitus with foot ulcer (principal); L97.412 Non-pressure chronic ulcer of right heel and midfoot with fat layer exposed | CPT/HCPCS: G0463 ==

== ENCOUNTER 2024-08-09 11:22 | Inpatient (IN) | payer OTHER, SELFPAY ==
[2024-08-09] VITALS (30 sets, daily range): BP systolic 115–157; BP diastolic 80–109; PULSE 78–140; RESP 18; TEMP 36.3–36.6; O2SAT 83–99; BMI 41.8; BMI 47.7
--- NOTE | 2024-08-09 11:41 | XR_ITS ---
[address] [address] Patient Name: TYLER SMITH MRN: [id number] date: 1960 Sex: M Assigned Patient Location: ER Current Patient Location: ER Accession/Order Number: [id number] Exam Date: 08/09/2024 12:00 Report Date: 08/09/2024 12:23 At the request of: JILLIAN WATSON Procedure: XR tibia fibula LT 2V EXAM: XR tibia fibula LT 2V HISTORY: infection COMPARISON: None. XR/XR tibia fibula LT 2V IMPRESSION: 1. No acute fracture or malalignment. 2. No periosteal reaction or bone destruction. Electronically authenticated by: TESS JIMENEZ Date: 08/09/2024 12:23
--- NOTE | 2024-08-09 11:41 | XR_ITS ---
[address] [address] Patient Name: TYLER SMITH MRN: [id number] date: 1960 Sex: M Assigned Patient Location: ER Current Patient Location: ER Accession/Order Number: [id number] Exam Date: 08/09/2024 12:00 Report Date: 08/09/2024 12:25 At the request of: JILLIAN WATSON Procedure: XR foot LT min 3V EXAM: XR foot LT min 3V HISTORY: infection COMPARISON: None. XR/XR foot LT min 3V IMPRESSION: 1. No acute fracture or malalignment. 2. No periosteal reaction or bone destruction. 3. Mild first metatarsal phalangeal joint osteoarthritis. 4. Tiny plantar enthesophyte. 5. Forefoot soft tissue swelling. Electronically authenticated by: TESS JIMENEZ Date: 08/09/2024 12:25
--- NOTE | 2024-08-09 11:48 | PC.NURSE ---
pt bilateral lower leg swelling and redness. Sores with drainage to left lower leg, skin tears noted. pt unsure when sores started on left lower leg.
[2024-08-09 11:56] LABS: Hematocrit 56.4 % (42.0-54.0); Hemoglobin 17.3 g/dL (14.0-18.0); Mean Corpuscular HGB Conc 30.7 g/dL (29.9-35.2); Mean Corpuscular Hemoglobin 29.3 pg (25.9-34.0); Mean Corpuscular Volume 95.6 fL (80.0-94.0); Mean Platelet Volume 10.7 fL (9.5-13.5); Platelet Count 288 10^3/uL (150-450); Red Cell Distribution Width 15.2 % (11.0-15.0); White Blood Count 12.6 10^3/uL (4.0-11.0)
--- NOTE | 2024-08-09 12:00 | ECG_ITS ---
The [facility] Test Date: 2024-08-09 Pat Name: TYLER SMITH Department: Room: 229-1 Gender: Male Security Assessor: : 1960 Requested By: [id number] Order Number: [id number] Reading MD: BAR MCCOY Measurements Intervals [place] Rate: 121 P: -81 TX: 164 QRS: 251 QRSD: 80 T: 254 QT: 274 QTc: 346 Interpretive Statements 1220 Rapid atrial rhythm 3113 Cannot rule out anterior myocardial infarction, probably old ST/T wave changes, can't exclude inferolateral ischemia 7300 Indeterminate axis 8102 Low QRS voltage in chest leads 8305 Short QTc interval 9150 abnormal ECG Electronically Signed On 08-10-2024 6:49:02 EST by BAR MCCOY
[2024-08-09 12:06] LABS: C Reactive Protein 1.88 mg/dL (<=0.50)
[2024-08-09 12:08] LABS: INR 1.15
[2024-08-09 12:10] LABS: Alanine Aminotransferase 57 U/L (16-63); Albumin Globulin Ratio 0.8; Albumin Level 3.1 g/dL (3.4-5.0); Alkaline Phosphatase 103 U/L (46-116); Anion Gap 11.2; Aspartate Amino Transferase 39 U/L (15-37); BUN Creatinine Ratio 29.2; Bilirubin Total 1.2 mg/dL (0.2-1.0); Calcium 9.1 mg/dL (8.5-10.1); Carbon Dioxide 28.8 mmol/L (21.0-32.0); Chloride 102 mmol/L (98-107); Estimated GFR (African America >60 (>=60 mL/min/1.73m^2); Estimated GFR (Non-African Ame 55 (>=60 mL/min/1.73m^2); Globulin 3.9 g/dL; Glucose 193 mg/dL (74-106); Sodium 137 mmol/L (136-145)
[2024-08-09 12:12] LABS: Erythrocyte Sedimentation Rate 23 mm/hr (<=20)
[2024-08-09 12:18] LABS: Lactate/Lactic Acid 2.1 mmol/L (0.4-2.0)
[2024-08-09 12:20] LABS: Lymphocytes Absolute Manual 0.75 10^3/uL (1.20-3.80); Monocytes Absolute Manual 1.51 10^3/uL (0.30-0.80); Segmented Neut Absolute Manual 10.33 10^3/uL (1.4-6.5)
[2024-08-09] MEDS: 0.9 % SODIUM CHLORIDE 1,000 ML 1000 ML IV ×2 (12:35→14:02)
[2024-08-09 12:40] LABS: Glucometer 179 mg/dL (74-106)
[2024-08-09] MEDS: PIPERACILLIN SODIUM/TAZOBACTAM 4.5 GM in 0.9 % SODIUM CHLORIDE 50 ML IV (12:57)
--- NOTE | 2024-08-09 13:23 | ED_ITS ---
HPI HPI - General Adult General Chief complaint: Wound/Laceration Stated complaint: LOWER EXTREMITY PAINS Time Seen by Provider: 08/09/24 11:31 Source: patient Mode of arrival: Wheelchair Limitations: no limitations History of Present Illness HPI narrative: The patient is a 63-year-old male who is coming to us after he was recently evaluated by his certified caregiver requested to come to the ER but the patient apparently, had a fall that day and did tell he did not come to the ER Patient has left leg cellulitis and redness that was noticed in the certified caregiver office and he was supposed to come here for evaluation Patient otherwise has no complaint he mentioned that he did not want to come here with his oxygen because it is hard to set up for travel and came here with his pulse ox initially was low because he is not taking his oxygen he usually uses almost 4 L of nasal cannula daily Related Data Previous Rx's ?Medication ?Instructions ?Recorded glipizide 5 mg tablet 5 mg PO BID #60 tabs 03/30/24 insulin detemir U-100 100 unit/mL 30 unit (0.3 mL) subcut QPM 30 03/30/24 (3 mL) subcutaneous pen days #9 mL pen needle, diabetic 31 gauge x #50 ea 03/30/24 5/16 vancomycin 1.5 gram/250 mL in 0.9 1.5 g (250 mL) IV Q12H 28 days 03/30/24 % sodium chloride intravenous Allergies Allergy/AdvReac Type Severity Reaction Status Date / Time No Known Drug Allergies Allergy Verified 08/09/24 11:31 Opioid HPI Opioid Management Most Recent Opioid Data: Last Pain Scale 6 03/30/24 15:19 03/30/24 Last ORT Total Score 0 03/24/24 13:48 03/24/24 Last ORT Risk Category Low Risk 03/24/24 13:48 03/24/24 Review of Systems ROS Status of ROS 10 or more systems reviewed and unremark able except as noted in history and below [facility] Medical History (Updated 08/09/24 @ 13:50 by Coco Starr MD) Pneumonia ?J18.9 - Pneumonia, unspecified organism (ICD-10) Type 2 diabetes mellitus with diabetic polyneuropathy ?E11.42 - Type 2 diabetes mellitus with diabetic polyneuropathy (ICD-10) Acute osteomyelitis of right foot ?M86.171 - Other acute osteomyelitis, right ankle and foot (ICD-10) Abscess of right foot ?L02.611 - Cutaneous abscess of right foot (ICD-10) Cellulitis ?L03.90 - Cellulitis, unspecified (ICD-10) Edema, peripheral ?R60.0 - Localized edema (ICD-10) Upper respiratory infection ?J06.9 - Acute upper respiratory infection, unspecified (ICD-10) MURALI (obstructive sleep apnea) ?G47.33 - Obstructive sleep apnea (adult) (pediatric) (ICD-10) Smoker ?F17.200 - Nicotine dependence, unspecified, uncomplicated (ICD-10) Chronic respiratory failure with hypoxia ?J96.11 - Chronic respiratory failure with hypoxia (ICD-10) Dizziness ?R42 - Dizziness and giddiness (ICD-10) Diabetes ?E11.9 - Type 2 diabetes mellitus without complications (ICD-10) Surgical History H/O hernia repair ?Z98.890 - Other specified postprocedural states (ICD-10) ?Z87.19 - Personal history of other diseases of the digestive system (ICD-10) History of tonsillectomy ?Z90.89 - Acquired absence of other organs (ICD-10) History of appendectomy ?Z90.49 - Acquired absence of other specified parts of digestive tract (ICD- 10) Family History Grandfather Family history of CHF (congestive heart failure) Family history of diabetes mellitus Family history of hypertension Family history of myocardial infarction Family history of stroke Mother Family history of cancer Social History Within the past year, how often did you have a drink containing alcohol: never Score interpretation: A score less than 4 is consistent with normal alcohol consumption. 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 General: Well-appearing and in no apparent distress. 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 Head: Normocephalic, atraumatic. Neck: Supple, non-tender. Eye: Pupils are equal, round and EOMI. No scleral icterus. Ears, Nose, Mouth, and Throat: TM are clear, no nasal mucosal hypertrophy. Oral mucosa is moist, no posterior oropharynx erythema, uvula is mid-line Cardiovascular: Regular Rate and Rhythm without murmur, gallop or rub. Respiratory: No accessory muscle use or respiratory distress. Lungs are clear to auscultation, no wheezing, rales or rhonchi Chest Wall: no tenderness Back: No midline thoracic or lumbar vertebral tenderness. No CVA tenderness GI: Abdomen is soft, obese ,normal bowel sounds. No masses appreciated. No tenderness to palpation. No rebound, guarding, or rigidity noted. Constitutional Vital Signs, click to edit/add: Last Vital Signs Temp 97.8 F 08/09/24 11:27 Pulse 132 H 08/09/24 11:27 Resp 24 H 08/09/24 11:27 BP 157/109 H 08/09/24 12:38 Pulse Ox 90 L 08/09/24 12:38 O2 Del Method Nasal Cannula 08/09/24 11:33 O2 Flow Rate 4 08/09/24 11:33 Course Vital Signs Vital signs: Vital Signs Temperature 97.8 F 08/09/24 11:27 Pulse Rate 132 H 08/09/24 11:27 Respiratory Rate 24 H 08/09/24 11:27 Blood Pressure 128/86 08/09/24 11:27 Pulse Oximetry 83 L 08/09/24 11:27 Oxygen Delivery Method Room Air 08/09/24 11:27 Temperature 97.8 F 08/09/24 11:27 Pulse Rate 132 H 08/09/24 11:27 Respiratory Rate 24 H 08/09/24 11:27 Blood Pressure 157/109 H 08/09/24 12:38 Pulse Oximetry 90 L 08/09/24 12:38 Oxygen Delivery Method Nasal Cannula 08/09/24 11:33 Oxygen Delivery Flow Rate 4 08/09/24 11:33 Medical Decision Making MDM Narrative Medical decision making narrative: The patient EKG in the ER showing a sinus rhythm with a heart rate of 120 The patient presentation is mostly secondary to cellulitis and I did speak with Dr. Curtis and he agreed that the patient was sent over to be evaluated for that and he mostly need to be admitted for IV antibiotic and he will be consulted as inpatient The patient what blood cell shows some elevation and that he is presenting to us with tachycardia The patient not a good historian, and he is claiming that this started 4 days ago although it seems like it has been progressing problem The patient have a good anterior tibial pulse bilaterally that is dopplerable The patient x-rays of the lower extremity showed no acute pathology except for the edema ESR and CRP shows some elevation although with the patient current presentation IV antibiotic started with Zosyn and clindamycin as he recently was treated with vancomycin and Zosyn for osteomyelitis Lactic acid 2.1 is mildly elevated and with the patient current presentation I do want to give the patient the whole IV fluid for the risk of fluid overload specially with the patient have a 1+ edema bilaterally that seem to be chronic The patient case was discussed with and he agreed to admit the patient for further evaluation of cellulitis Lab Data Labs: Lab Results 08/09/24 08/09/24 08/09/24 Range/Units 11:42 11:45 12:40 WBC 12.6 H (4.0-11.0) 10^3/uL RBC 5.90 (4.70-6.10) 10^6/uL Hgb 17.3 (14.0-18.0) g/dL Hct 56.4 H (42.0-54.0) % MCV 95.6 H (80.0-94.0) fL MCH 29.3 (25.9-34.0) pg MCHC 30.7 (29.9-35.2) g/dL RDW 15.2 H (11.0-15.0) % Plt Count 288 (150-450) 10^3/uL MPV 10.7 (9.5-13.5) fL Seg Neuts % (Manual) 82.0 H (43.0-75.0) Lymphocytes % (Manual) 6.0 L (20.5-60.0) % Monocytes % (Manual) 12.0 (1.7-12.0) % Eosinophils % (Manual) 0.0 L (0.9-7.0) % Basophils % (Manual) 0.0 L (0.2-2.0) % Neutrophils # (Manual) 10.33 H (1.4-6.5) 10^3/uL Lymphocytes # (Manual) 0.75 L (1.20-3.80) 10^3/uL Monocytes # (Manual) 1.51 H (0.30-0.80) 10^3/uL Eosinophils # (Manual) 0.00 (0.00-0.70) 10^3/uL Basophils # (Manual) 0.00 (0.00-0.10) 10^3/uL ESR 23 H (<=20) mm/hr PT 12.0 H (9.0-11.6) sec INR 1.15 Sodium 137 (136-145) mmol/L Potassium 5.0 (3.5-5.1) mmol/L Chloride 102 (98-107) mmol/L Carbon Dioxide 28.8 (21.0-32.0) mmol/L Anion Gap 11.2 BUN 38.0 H (7.0-18.0) mg/dL Creatinine 1.30 (0.70-1.30) mg/dL Est GFR ( Amer) >60 (>=60 mL/min/1.73m^2) Est GFR (Non-Af Amer) 55 L (>=60 mL/min/1.73m^2) BUN/Creatinine Ratio 29.2 Glucose 193 H (74-106) mg/dL Lactate 2.1 H (0.4-2.0) mmol/L Calcium 9.1 (8.5-10.1) mg/dL Total Bilirubin 1.2 H (0.2-1.0) mg/dL AST 39 H (15-37) U/L ALT 57 (16-63) U/L Alkaline Phosphatase 103 (46-116) U/L C-Reactive Protein 1.88 H (<=0.50) mg/dL Total Protein 7.0 (6.4-8.2) g/dL Albumin 3.1 L (3.4-5.0) g/dL Globulin 3.9 g/dL Albumin/Globulin Ratio 0.8 POC Glucose 179 H (74-106) mg/dL Discharge Plan Discharge Chief Complaint: Wound/Laceration Clinical Impression: Cellulitis of left leg Patient Disposition: Admitted As Inpatient Time of Disposition Decision: 13:50
[2024-08-09] MEDS: CLINDAMYCIN PHOSPHATE/D5W 600 MG/50 ML PREMIX 100 MG IV (13:28)
--- NOTE | 2024-08-09 14:12 | PHOTOS ---
left lower leg
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
--- NOTE | 2024-08-09 14:54 | XR_ITS ---
The [address] [address] Patient Name: TYLER SMITH MRN: [id number] date: 1960 Sex: M Assigned Patient Location: [place] Current Patient Location: [place] Accession/Order Number: [id number] Exam Date: 08/09/2024 15:00 Report Date: 08/09/2024 20:35 At the request of: SHAIKH BANDAR Procedure: XR chest 1V EXAMINATION: XR chest 1V HISTORY: SOB COMPARISON: XR chest 04/08/2024 FINDINGS: LUNGS: Mild haziness and stranding within the lung base. Obscuration of the right hemidiaphragm. VASCULATURE: No increased pulmonary vasculature. PLEURA: Possible right pleural effusion. No pneumothorax. CARDIAC: No cardiomegaly or cardiac silhouette abnormality. MEDIASTINUM: No visible mass or adenopathy. BONES: No fracture or visible bone lesion. OTHER: Negative. XR/XR chest 1V IMPRESSION: Suspect small right pleural effusion and dense mild bibasilar infiltrates versus atelectasis; increased compared to prior study. Electronically authenticated by: ARIC DODSON Date: 08/09/2024 20:35
--- NOTE | 2024-08-09 14:56 | US_ITS ---
The [address] [address] Patient Name: TYLER MSITH MRN: [id number] date: 1960 Sex: M Assigned Patient Location: [place] Current Patient Location: [place] Accession/Order Number: [id number] Exam Date: 08/09/2024 17:55 Report Date: 08/09/2024 19:09 At the request of: SHAIKH BANDAR Procedure: US venous doppler LE LT EXAM: US venous doppler LE LT HISTORY: Cellulitis . Assess for deep vein thrombosis. COMPARISON: 03/24/2024 TECHNIQUE: Multiple sonographic images of the deep veins of the left lower extremity were obtained, supplemented with Doppler. FINDINGS: The study is a bit limited secondary to edema and the patient's body habitus, particularly proximally. The peroneal vein is also not visualized due to edema. The remainder of the deep veins are relatively well visualized from the groin to the mid calf. No filling defect is identified in the deep veins to indicate a thrombus. There is normal compression augmentation to flow in the visualized deep veins. Varicose veins superficially at are also partially visualized. US/US venous doppler LE LT IMPRESSION: The study is technically limited. There is no direct or indirect evidence of deep vein thrombosis in the lower extremity at this time. Similar findings were noted in the prior study from 03/24/2024. Electronically authenticated by: CURT GOMEZ Date: 08/09/2024 19:09
--- NOTE | 2024-08-09 14:59 | PM.HP ---
HPI H&P: HPI History of Present Illness Chief complaint: LOWER EXTREMITY PAIN, CELLULITIS Narrative: 63-year-old male with past medical history of chronic respiratory failure with hypoxia, type 2 diabetes with peripheral neuropathy and previous right transmetatarsal amputation because of osteomyelitis was seen as outpatient by podiatry on and was instructed to come to ER for left lower extremity cellulitis hide on his way out he fell on the ground. Patient is generally irritable, noncompliant and got upset that he fell and returned home instead of coming to ER. Had another fall at home because he is still learning to walk with transmetatarsal amputation. He currently arrived today for evaluation when he noticed that his left lower extremity is progressively getting more swollen/red and was now seeping clear fluid. Workup in ER revealed sepsis secondary to left lower extremity cellulitis. He was also notably hypoxic on arrival and was considerably short of breath but he came to ER without his oxygen because it would be too much of a hassle for him. Patient admitted for sepsis secondary to cellulitis and started on IV fluids and IV antibiotics. Opioid HPI Opioid Management Most Recent Pain and Opioid Data: Last Pain Scale 6 03/30/24 15:19 03/30/24 Last ORT Total Score 0 03/24/24 13:48 03/24/24 Last ORT Risk Category Low Risk 03/24/24 13:48 03/24/24 Review of Systems ROS Status of ROS 10 or more systems reviewed and unremarkable except as noted in history and below [facility] Medical History (Updated 08/09/24 @ 15:11 by Shaikh Mono MD) COPD (chronic obstructive pulmonary disease) ?J44.9 - Chronic obstructive pulmonary disease, unspecified (ICD-10) Morbid obesity ?E66.01 - Morbid (severe) obesity due to excess calories (ICD-10) Pneumonia ?J18.9 - Pneumonia, unspecified organism (ICD-10) Type 2 diabetes mellitus with diabetic polyneuropathy ?E11.42 - Type 2 diabetes mellitus with diabetic polyneuropathy (ICD-10) Acute osteomyelitis of right foot ?M86.171 - Other acute osteomyelitis, right ankle and foot (ICD-10) Abscess of right foot ?L02.611 - Cutaneous abscess of right foot (ICD-10) Cellulitis ?L03.90 - Cellulitis, unspecified (ICD-10) Edema, peripheral ?R60.0 - Localized edema (ICD-10) Upper respiratory infection ?J06.9 - Acute upper respiratory infection, unspecified (ICD-10) MURALI (obstructive sleep apnea) ?G47.33 - Obstructive sleep apnea (adult) (pediatric) (ICD-10) Smoker ?F17.200 - Nicotine dependence, unspecified, uncomplicated (ICD-10) Chronic respiratory failure with hypoxia ?J96.11 - Chronic respiratory failure with hypoxia (ICD-10) Dizziness ?R42 - Dizziness and giddiness (ICD-10) Diabetes ?E11.9 - Type 2 diabetes mellitus without complications (ICD-10) Surgical History H/O hernia repair ?Z98.890 - Other specified postprocedural states (ICD-10) ?Z87.19 - Personal history of other diseases of the digestive system (ICD-10) History of tonsillectomy ?Z90.89 - Acquired absence of other organs (ICD-10) History of appendectomy ?Z90.49 - Acquired absence of other specified parts of digestive tract (ICD-10) Family History Grandfather Family history of CHF (congestive heart failure) Family history of diabetes mellitus Family history of hypertension Family history of myocardial infarction Family history of stroke Mother Family history of cancer Social History Within the past year, how often did you have a drink containing alcohol: never Score interpretation: A score less than 4 is consistent with normal alcohol consumption. 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 Highest level of school completed/degree received: GED or equivalent Are you now , , , , never or living with a partner: Little interest or pleasure in doing things: not at all Feeling down, depressed, or hopeless: not at all Feel stressed/tense/nervous/anxious/difficulty sleeping: not at all Meds Home Medications and Allergies Home Medications ?Medication ?Instructions ?Recorded ?Confirmed ?Type glipizide 5 mg tablet 5 mg PO BID #60 tabs 03/30/24 08/09/24 Rx insulin detemir U-100 100 unit/mL 30 unit (0.3 mL) subcut QPM 30 03/30/24 08/09/24 Rx (3 mL) subcutaneous pen days #9 mL pen needle, diabetic 31 gauge x #50 ea 03/30/24 08/09/24 Rx 5/16 vancomycin 1.5 gram/250 mL in 0.9 1.5 g (250 mL) IV Q12H 28 days 03/30/24 08/09/24 Rx % sodium chloride intravenous Allergies Allergy/AdvReac Type Severity Reaction Status Date / Time No Known Drug Allergies Allergy Verified 08/09/24 11:31 Exam Constitutional Vital Signs, click to edit/add: Last Vital Signs Temp 97.8 F 08/09/24 11:27 Pulse 128 H 08/09/24 13:01 Resp 15 08/09/24 13:01 BP 118/99 H 08/09/24 13:31 Pulse Ox 90 L 08/09/24 12:38 O2 Del Method Nasal Cannula 08/09/24 11:33 O2 Flow Rate 4 08/09/24 11:33 Common normals: no apparent distress Nutritional appearance: obese Respiratory Common normals: normal respiratory effort and no use of accessory muscles Effort & inspection: able to speak in complete sentences and tachypneic Auscultation: wheezes and diminished lung sounds Cardio Common normals: regular rhythm, S1 normal heart sound and S2 normal heart sound Rate: tachycardic GI Common normals: Normal to inspection, nondistended, normoactive bowel sounds present, soft to palpation, non-tender and no hepatosplenomegaly Extremity Other: Right TMA LLE -erythema, induration, tenderness extending all the way from foot to just below knee. Superficial seeping wounds seen on exam Neuro Common normals: oriented x3, moves all extremities, no focal motor deficits and no sensory deficits noted Psych Common normals: mental status grossly normal, thought process normal, denies homicidal ideation and denies suicidal ideation Results Labs Labs: Short CBC 08/09/24 Range/Units 11:42 WBC 12.6 H (4.0-11.0) 10^3/uL Hgb 17.3 (14.0-18.0) g/dL Hct 56.4 H (42.0-54.0) % Plt Count 288 (150-450) 10^3/uL BMP 08/09/24 11:42 Sodium 137 Potassium 5.0 Chloride 102 Carbon Dioxide 28.8 BUN 38.0 H Creatinine 1.30 Glucose 193 H Calcium 9.1 Liver Function 08/09/24 Range/Units 11:42 Total Bilirubin 1.2 H (0.2-1.0) mg/dL AST 39 H (15-37) U/L ALT 57 (16-63) U/L Alkaline Phosphatase 103 (46-116) U/L Albumin 3.1 L (3.4-5.0) g/dL Assessment and Plan Assessment and Plan (1) Sepsis: Assessment and Plan: HR> 120, RR>20, leukocytosis with lactic acidosis. Received one L IVF bolus in ED. Another 1 L bolus ordered. Started on IV vancomycin/zosyn. F/u cultures. Qualifiers: Sepsis type: sepsis due to unspecified organism Sepsis acute organ dysfunction status: without acute organ dysfunction Qualified Code(s): A41.9 - Sepsis, unspecified organism (2) Cellulitis of left leg: Assessment and Plan: LLE cellulitis, extending from foot to just below knee. At high risk of poor prognosis due to T2M, neuropathy, prior hx of amputation, non compliance. US ordered to r/o deep tissue infection/abscess or DVT. On broad spectrum abx. F.u cultures. Podiatry consulted. (3) Type 2 diabetes mellitus with diabetic polyneuropathy: Assessment and Plan: SSI along with lantus while inpatient. 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 non compliant. (5) Chronic respiratory failure with hypoxia: Assessment and Plan: Due to MURALI, COPD. Continues to smoke. CXR ordered to r/o active infection as patient reports recently being sick with resp illness. started on duonebs as wheezing on exam heard (6) COPD (chronic obstructive pulmonary disease): Assessment and Plan: Not formally diagnosed. Wheezing on exam. Continues to smoke. Duonebs ordered. Qualifiers: COPD type: unspecified COPD Qualified Code(s): J44.9 - Chronic obstructive pulmonary disease, unspecified (7) Morbid obesity: Assessment and Plan: Will benefit from weight loss. Defer to PCP.
[2024-08-09 15:22] LABS: Lactate/Lactic Acid 0.7 mmol/L (0.4-2.0)
[2024-08-09] MEDS: LACTATED RINGER'S SOLUTION 1,000 ML 1000 ML IV ×2 (15:28→17:01)
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
[2024-08-09] MEDS: ENOXAPARIN SODIUM 40 MG/0.4 ML SYRINGE SUBQ (17:31)
[2024-08-09] MEDS: LACTATED RINGER'S SOLUTION 1,000 ML 125 ML IV (18:27)
--- NOTE | 2024-08-09 20:00 | PC.NURSE ---
called to room because pt was becoming aggressive. Pt sitting on the side of the bed, rocking and growling . When attempt to talk to pt, pt talks unintelligibly and swings at staff. Several attempts made to talk to pt to allow a pulse ox reading to be done but behavior continues. Pt's lips are dusky, bilat lower legs luisa feet are dusky to purple in color and lt lower leg is draining serous fluid. Friend arrives at cart side but pt does not respond with clear communication to friend. Pt rubs his rt knee and rocks on the bed, never opening his eyes. When pulse ox was placed on finger, pt draws back other arm and balls up fist. Trupti Packer WET ROOM SUPERVISOR notified of pt status and talks direct via phone to report writer. Orders obtained and Trupti is going to contact the ER Dr to make him aware of the situation. 2005: Pt medicated with Haldol 5mg IV. Pt continues to sit on the side of the bed, rocking and growling. 2007: Friend remains present and attempts to get pt to cooperate and lay back on the bed. Pt plays with hands, picks at the lt one like there is something in in rt hand. Pt continues to growl, rock, and does not follow commands. Pt leaning more forward so staff swings pts legs into the bed to prevent him from falling. Side rails up X4. Pt then attached to portable tank and moved to ICU. 2010: Pt moved to ICU. Pt still growling and moving about on bed while moving to the ICU. Trupti aware and she is currently putting in orders.
[2024-08-09] MEDS: HALOPERIDOL LACTATE 5 MG/ML VIAL IV (20:05)
--- NOTE | 2024-08-09 20:05 | PC.NURSE ---
when pt was being brought back to the ICU, pt starts rubbing his forehead and stating that it hurts. Trupti made aware that pt is complaining of a headache.
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
[2024-08-09] MEDS: HALOPERIDOL LACTATE 5 MG/ML VIAL 2.5 MG IV (20:30)
[2024-08-09 20:58] LABS: Oxygen Saturation ABG 77.2 %
[2024-08-09 20:59] LABS: Allen Test POSITIVE (POSITIVE); Liters per Minute 9; O2 Mode NASAL CANNULA; Puncture Site L RADIAL
[2024-08-09 21:03] LABS: ABG PCO2 >98.3 mmHg (35.0-45.0); PO2 ABG 48.6 mmHg (80.0-100.0); pH ABG 7.111 (7.350-7.450)
--- NOTE | 2024-08-09 21:04 | CT_ITS ---
The [address] [address] Patient Name: TYLER SMITH MRN: [id number] date: 1960 Sex: M Assigned Patient Location: ICU Current Patient Location: ICU Accession/Order Number: [id number] Exam Date: 08/09/2024 22:05 Report Date: 08/09/2024 22:40 At the request of: SATISH BENNETT Procedure: CT head/brain wo con EXAM: CT head/brain wo con HISTORY: Acute confusion COMPARISON: None. TECHNIQUE: Axial CT scans through the head were obtained without IV contrast administration. Dose reduction techniques were achieved by using: automated exposure control and/or adjustment of mA and /or kV according to patient size and/or use of iterative reconstruction technique. FINDINGS: Exam is distorted secondary to motion artifact. Findings are made within these confines. There is no evidence of acute intracranial hemorrhage or abnormal extra-axial fluid collection. No mass effect or midline shift is seen. There is no evidence of large acute territorial infarction. There is no hydrocephalus. To the limit of CT, the posterior fossa appears unremarkable. No definite acute fracture is identified. Soft tissues are unremarkable. The visualized orbits show no abnormality. The visualized paranasal sinuses show no air-fluid level. There are mucous retention cysts within left maxillary sinus. There is mild right-sided mastoid effusion. CT/CT head/brain wo con IMPRESSION: Within the limitations of significant motion artifact, no discrete acute intracranial abnormality identified. If there is sufficient clinical concern for acute infarct, consider MRI for further evaluation. Electronically authenticated by: JIM PAIGE Date: 08/09/2024 22:40
[2024-08-09] MEDS: DEXMEDETOMIDINE HCL 200 MCG in 0.9 % SODIUM CHLORIDE 50 ML 8.289 MCG IV (21:30)
[2024-08-09] MEDS: LORAZEPAM 2 MG/ML VIAL 1 MG IV (22:25)
[2024-08-09] MEDS: DIPHENHYDRAMINE HCL 50 MG/ML VIAL IV (22:25)
[2024-08-09] MEDS: VANCOMYCIN HCL 2,000 MG in 0.9 % SODIUM CHLORIDE 500 ML 250 MG IV (22:54)
[2024-08-09 23:00] LABS: Glucometer 188 mg/dL (74-106)
[2024-08-09] MEDS: DEXMEDETOMIDINE HCL 200 MCG in 0.9 % SODIUM CHLORIDE 50 ML 16.578 MCG IV (23:24)
[2024-08-09 23:58] LABS: PCO2 VBG 72.5 mmHg (40.0-52.0); pH VBG 7.195 (7.330-7.430)
[2024-08-10] VITALS (80 sets, daily range): BP systolic 86–173; BP diastolic 55–96; PULSE 65–131; RESP 18; TEMP 36.6; O2SAT 79–99
--- NOTE | 2024-08-10 00:47 | ECG_ITS ---
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
[2024-08-10] MEDS: PIPERACILLIN SODIUM/TAZOBACTAM 3.375 GM in 0.9 % SODIUM CHLORIDE 50 ML IV ×3 (01:43→21:16)
[2024-08-10] MEDS: DEXMEDETOMIDINE HCL 200 MCG in 0.9 % SODIUM CHLORIDE 50 ML 24.866 MCG IV ×4 (01:44→10:03)
[2024-08-10] MEDS: LACTATED RINGER'S SOLUTION 1,000 ML 125 ML IV (03:57)
[2024-08-10] MEDS: IPRATROPIUM/ALBUTEROL SULFATE 3 ML AMPUL.NEB IH ×4 (04:06→20:05)
[2024-08-10 05:43] LABS: Basophils Absolute Auto 0.1 10^3/uL (0.0-0.1); Basophils Percent Auto 0.4 % (0.2-2.0); Eosinophils Absolute Auto 0.1 10^3/uL (0.0-0.7); Eosinophils Percent Auto 0.6 % (0.9-7.0); Hematocrit 53.3 % (42.0-54.0); Immature Granulocytes Abs Auto 0.07 10^3/uL (0.00-0.03); Immature Granulocytes Pct Auto 0.5 % (0.0-0.5); Lymphocytes Absolute Auto 1.1 10^3/uL (1.2-3.8); Lymphocytes Percent Auto 7.9 % (20.5-60.0); Mean Corpuscular Hemoglobin 29.3 pg (25.9-34.0); Mean Corpuscular Volume 97.6 fL (80.0-94.0); Mean Platelet Volume 11.4 fL (9.5-13.5); Monocytes Absolute Auto 2.3 10^3/uL (0.3-0.8); Monocytes Percent Auto 16.2 % (1.7-12.0); Neutrophils Absolute Auto 10.6 10^3/uL (1.4-6.5); Neutrophils Percent Auto 74.4 % (43.0-75.0); Platelet Count 235 10^3/uL (150-450); Red Blood Count 5.46 10^6/uL (4.70-6.10); Red Cell Distribution Width 15.5 % (11.0-15.0); White Blood Count 14.2 10^3/uL (4.0-11.0)
[2024-08-10 05:49] LABS: PCO2 VBG 59.4 mmHg (40.0-52.0); pH VBG 7.291 (7.330-7.430)
[2024-08-10 06:08] LABS: Alanine Aminotransferase 47 U/L (16-63); Albumin Globulin Ratio 0.8; Albumin Level 2.6 g/dL (3.4-5.0); Alkaline Phosphatase 95 U/L (46-116); Anion Gap 9.5; Aspartate Amino Transferase 32 U/L (15-37); BUN Creatinine Ratio 29.4; Bilirubin Total 1.1 mg/dL (0.2-1.0); Calcium 8.7 mg/dL (8.5-10.1); Carbon Dioxide 29.4 mmol/L (21.0-32.0); Chloride 105 mmol/L (98-107); Estimated GFR (African America >60 (>=60 mL/min/1.73m^2); Estimated GFR (Non-African Ame 50 (>=60 mL/min/1.73m^2); Globulin 3.3 g/dL; Glucose 207 mg/dL (74-106); Potassium 5.9 mmol/L (3.5-5.1); Sodium 138 mmol/L (136-145); Total Protein 5.9 g/dL (6.4-8.2)
[2024-08-10 09:43] LABS: ABG PCO2 40.2 mmHg (35.0-45.0); Base Excess ABG -0.4 mmol/L (-2.0-2.0); HCO3 ABG 24.5 mmol/L (22.0-26.0); PO2 ABG 74.2 mmHg (80.0-100.0); pH ABG 7.394 (7.350-7.450)
[2024-08-10 09:44] LABS: Allen Test POSITIVE (POSITIVE); Fractionated Inspired Oxygen 30 %; Puncture Site RRAD
[2024-08-10 09:45] LABS: BIPAP Pressure 20/10
[2024-08-10 10:02] LABS: Glucometer 187 mg/dL (74-106)
[2024-08-10] MEDS: INSULIN ASPART 300 UNIT/3 ML PEN SUBQ ×3 (10:02→21:31)
--- NOTE | 2024-08-10 10:23 | CM.NOTE ---
Rounds made with Dr. Villareal. Onofre remains on BiPap. Plan for ABGs and wean BiPap. No discharge today.
--- NOTE | 2024-08-10 10:52 | CA_ITS ---
Patient Name: TYLER SMITH MR#: [id number] : 1960 Exam Date: 08/10/2024 Ordering Doctor: SHAIKH Cass PORTILLO . ECHOCARDIOGRAM REPORT PROCEDURE: CA ECHO DOPPLER COMPLETE INDICATIONS: New onset Afib, sepsis, sleep apnea, hypertension, diabetes, smoker, COPD COMPARISON: None. DESCRIPTION: COMPLETE ECHOCARDIOGRAM Real-time transthoracic echocardiography with 2D, M-mode, spectral and color flow Doppler performed. QUALITY: Technical quality was good. LEFT VENTRICLE: Normal chamber size. Normal left ventricular wall thickness. LV EF: Severely reduced left ventricular ejection fraction, 20 to 25%, global hypokinesis DIASTOLIC: Not adequately assessed due to heart rhythm. ATRIAL SEPTUM: Appears intact LEFT ATRIUM: Mild dilatation RIGHT ATRIUM: Moderate dilatation. RIGHT VENTRICLE: Moderate dilatation. Decreased right ventricular systolic function. TRICUSPID VALVE: Normal mobility and thickness. No stenosis with mild regurgitation. Doppler studies reveal mildly (35-45) elevated right sided pressures.RVSP 37 mmHg MITRAL VALVE: Normal mobility and thickness. No evidence of mitral valve stenosis. There is no mitral annular calcification. No mitral regurgitation. AORTIC VALVE: Normal trileaflet appearance. Moderately sclerotic aortic valve. Normal leaflet mobility. No evidence of aortic valve stenosis. No aortic regurgitation. AORTIC ROOT: Normal diameter and appearance. PULMONIC VALVE: Normal thickness and mobility. No stenosis. No regurgitation. PERICARDIUM: No evidence of pericardial effusion. IVC: IVC is dilated (2.9 cm) with no collapse. PLEURA: CONCLUSION: Severely reduced left ventricular systolic function globally, ejection fraction 20 to 25% Moderately dilated right ventricle with reduced systolic function Mild pulmonary hypertension, RVSP 37 mmHg Mildly dilated left atrium and moderately dilated right atrium Mild tricuspid regurgitation Dilated IVC with reduced respiratory collapse consistent with elevated central venous pressure Technically difficult study Adult Echocardiography Procedure Report Left Ventricle LVEDD (3.7 - 5.6 cm): 5.55 cm LVESD (2.2 - 4.0 cm): 5.12 cm LVIVS thickness (0.6 - 1.2 cm): 1.05 cm LVPW thickness (0.5 - 1.0 cm): 0.98 cm e': E - e': LVOT Max Gradient: 0.68 mm[Hg], 0.91 mm[Hg] LVOT Area (cm2): 0.45 m/s Peak Velocity (LVOT): 0.41 m/s, 0.48 m/s Mean Velocity (LVOT): LVOT Diameter 2.49 cm Left Ventricular Ejection Fraction: Left Atrium LA Volume Index (2D A2C): 35.37 ml/m2 Left Atrium Systolic Dimension: 4.77 cm Mitral Valve MV E to A Ratio: 1.76 MV Max Gradient: MV Mean Gradient: Mitral Valve A-Wave Peak Velocity: 0.25 m/s Mitral Valve E-Wave Peak Velocity: 0.44 m/s Cardiovascular Orifice Area: Right Ventricle RV Internal Diastolic Dimension: Aorta AO Root Diam: 3.42 cm Ascending Ao Diam: Aortic Valve AoV Area (Peak Amauri): 3.26 cm2, 3.03 cm2 AoV Area (VTI): Deceleration Platte: Pressure Half-Time: Peak Velocity(Antegrade Flow): 0.66 m/s Peak Gradient(Antegrade Flow): 1.77 mm[Hg] Mean Velocity(Antegrade Flow): Mean Gradient(Antegrade Flow): Velocity Time Integral: Tricuspid Valve Peak Velocity (Regurgitant Flow): 2.15 m/s, 2.03 m/s, 2.36 m/s Peak Velocity: Pulmonic Valve Mean Gradient: 0.60 mm[Hg] Mean Velocity: 0.35 m/s Peak Velocity: 0.61 m/s, 0.55 m/s Peak Gradient: 1.21 mm[Hg], 1.48 mm[Hg] Right Atrium Right Atrium Systolic Pressure: 82.03 ml, 82.03 ml Dictated by: Rock Catherine MD on 08/10/2024 at 18:37 Approved by: Rock Catherine MD on 08/10/2024 at 18:45
[2024-08-10] MEDS: FUROSEMIDE 40 MG/4 ML VIAL IVP ×2 (11:04→14:26)
[2024-08-10] MEDS: DEXMEDETOMIDINE HCL 200 MCG in 0.9 % SODIUM CHLORIDE 50 ML 20.722 MCG IV (11:27)
--- NOTE | 2024-08-10 12:49 | SWNOTE1 ---
SW not able to assess at this time due to pt getting medication due to restlessness and agitation. SW to follow up later today or tomorrow. Pt does have home oxygen, SW to check and see how much and from where.
[2024-08-10 13:02] LABS: Glucometer 206 mg/dL (74-106)
--- NOTE | 2024-08-10 13:11 | P.CN_ITS ---
Consult Note: [facility] Data of Consult Consult date: 08/10/24 Requesting Physician: Shaikh Mono MD Primary Care Provider: GARRETT QUINTANA Consult Narrative Reason for consult: Left lower extremity cellulitis Narrative: Patient is a 63-year-old male who is well-known to my practice whom I have treated previously for right foot osteomyelitis with transmetatarsal amputation. He was evaluated by Ramona Leigh PA-c in our wound center on 08/05/24 who reportedly strongly advised the patient to report to the emergency department due to left leg infection with ulceration. At that appointment he was present with a friend who is also encouraging him to go to the ER but patient had refused. Patient is known to be noncompliant and often disagreeable. Last hemoglobin A1c was 10.0 in March 2024. He presented to the emergency department yesterday with systemic signs of serious infection and progressing erythema swelling and pain to his left leg. X-rays of the foot and leg were negative for osseous changes or overt signs of osteomyelitis. Venous ultrasound was negative for DVT. Laboratories demonstrated leukocytosis with left shift, ESR of 23, CRP 1.88, potassium 5.9, creatinine 1.43, BUN 42. It was found that he was in new onset A-fib, systolic heart failure, acute on chronic COPD with pneumonia. He was placed in the ICU for close monitoring. At bedside he is arousable but groggy. He admits to worsening left leg redness, pain and swelling. He denies pain to his feet but is profoundly neuropathic cc:: CC: Shaikh Mono MD Review of Systems ROS Status of ROS 10 or more systems reviewed and unremark able except as noted in history and below Constitutional Reports: chills, fatigue and malaise [facility] Medical History (Updated 08/10/24 @ 13:28 by Shaikh Mono MD) COPD (chronic obstructive pulmonary disease) ?J44.9 - Chronic obstructive pulmonary disease, unspecified (ICD-10) Morbid obesity ?E66.01 - Morbid (severe) obesity due to excess calories (ICD-10) Pneumonia ?J18.9 - Pneumonia, unspecified organism (ICD-10) Type 2 diabetes mellitus with diabetic polyneuropathy ?E11.42 - Type 2 diabetes mellitus with diabetic polyneuropathy (ICD-10) Acute osteomyelitis of right foot ?M86.171 - Other acute osteomyelitis, right ankle and foot (ICD-10) Abscess of right foot ?L02.611 - Cutaneous abscess of right foot (ICD-10) Cellulitis ?L03.90 - Cellulitis, unspecified (ICD-10) Edema, peripheral ?R60.0 - Localized edema (ICD-10) Upper respiratory infection ?J06.9 - Acute upper respiratory infection, unspecified (ICD-10) MURALI (obstructive sleep apnea) ?G47.33 - Obstructive sleep apnea (adult) (pediatric) (ICD-10) Smoker ?F17.200 - Nicotine dependence, unspecified, uncomplicated (ICD-10) Chronic respiratory failure with hypoxia ?J96.11 - Chronic respiratory failure with hypoxia (ICD-10) Dizziness ?R42 - Dizziness and giddiness (ICD-10) Diabetes ?E11.9 - Type 2 diabetes mellitus without complications (ICD-10) Surgical History H/O hernia repair ?Z98.890 - Other specified postprocedural states (ICD-10) ?Z87.19 - Personal history of other diseases of the digestive system (ICD-10) History of tonsillectomy ?Z90.89 - Acquired absence of other organs (ICD-10) History of appendectomy ?Z90.49 - Acquired absence of other specified parts of digestive tract (ICD- 10) Family History Grandfather Family history of CHF (congestive heart failure) Family history of diabetes mellitus Family history of hypertension Family history of myocardial infarction Family history of stroke Mother Family history of cancer Social History Within the past year, how often did you have a drink containing alcohol: never Score interpretation: A score less than 4 is consistent with normal alcohol consumption. 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 Highest level of school completed/degree received: GED or equivalent Are you now , , , , never or living with a partner: Little interest or pleasure in doing things: not at all Feeling down, depressed, or hopeless: not at all Feel stressed/tense/nervous/anxious/difficulty sleeping: not at all Meds Home Medications and Allergies Home Medications ?Medication ?Instructions ?Recorded ?Confirmed ?Type glipizide 5 mg tablet 5 mg PO BID #60 tabs 03/30/24 08/09/24 Rx insulin detemir U-100 100 unit/mL 30 unit (0.3 mL) subcut QPM 30 03/30/24 08/09/24 Rx (3 mL) subcutaneous pen days #9 mL pen needle, diabetic 31 gauge x #50 ea 03/30/24 08/09/24 Rx 5/16 vancomycin 1.5 gram/250 mL in 0.9 1.5 g (250 mL) IV Q12H 28 days 03/30/24 08/09/24 Rx % sodium chloride intravenous Allergies Allergy/AdvReac Type Severity Reaction Status Date / Time No Known Drug Allergies Allergy Verified 08/09/24 11:31 Exam Narrative Exam Narrative: Skin: Superficial ulceration on left anterior and medial leg with serous drainage. Erythema extending from the toes to the mid leg. Severe swelling to the left leg with mild to moderate swelling of the right leg. No obvious fluctuance. Vascular: Pedal pulses on the right foot are faintly palpable and nonpalpable on the left foot likely secondary to swelling. Capillary refill is brisk to the left toes. Compartments are full but compressible and no pain out of proportion Neuro: Absent protective and vibratory sensation MSK: No acute deformity. Patient is able to wiggle toes. Constitutional Vital Signs, click to edit/add: Last Vital Signs Temp 97.4 F L 08/09/24 14:33 Pulse 65 08/10/24 12:00 Resp 22 H 08/10/24 12:00 BP 100/71 08/10/24 11:04 Pulse Ox 98 08/10/24 11:21 O2 Del Method Vapotherm 08/10/24 11:21 O2 Flow Rate 40 08/10/24 11:21 FiO2 50 08/10/24 11:21 Results Labs Labs: Short CBC 08/10/24 Range/Units 05:24 WBC 14.2 H (4.0-11.0) 10^3/uL Hgb 16.0 (14.0-18.0) g/dL Hct 53.3 (42.0-54.0) % Plt Count 235 (150-450) 10^3/uL BMP 08/10/24 05:24 Sodium 138 Potassium 5.9 H Chloride 105 Carbon Dioxide 29.4 BUN 42.0 H Creatinine 1.43 H Glucose 207 H Calcium 8.7 Liver Function 08/10/24 Range/Units 05:24 Total Bilirubin 1.1 H (0.2-1.0) mg/dL AST 32 (15-37) U/L ALT 47 (16-63) U/L Alkaline Phosphatase 95 (46-116) U/L Albumin 2.6 L (3.4-5.0) g/dL ABG ABG results: 08/09/24 08/09/24 08/10/24 20:48 23:52 05:24 ABG pH 7.111 L* ABG pCO2 >98.3 H* ABG pO2 48.6 L* ABG HCO3 Final Assembly Worker ABG O2 Saturation 77.2 ABG Base Excess Final Assembly Worker VBG pH 7.195 L 7.291 L VBG pCO2 72.5 H* 59.4 H 08/10/24 09:29 ABG pH 7.394 ABG pCO2 40.2 ABG pO2 74.2 L ABG HCO3 24.5 ABG O2 Saturation 96.0 ABG Base Excess -0.4 VBG pH VBG pCO2 Assessment and Plan Assessment and Plan (1) Sepsis: Qualifiers: Sepsis type: sepsis due to unspecified organism Sepsis acute organ dysfunction status: without acute organ dysfunction Qualified Code(s): A41.9 - Sepsis, unspecified organism (2) Cellulitis of left leg: (3) Type 2 diabetes mellitus with diabetic polyneuropathy: Qualifiers: Diabetes mellitus jail insulin use: without long term care administrator use Qualified Code(s): E11.42 - Type 2 diabetes mellitus with diabetic polyneuropathy (4) MURALI (obstructive sleep apnea): (5) Chronic respiratory failure with hypoxia: (6) COPD (chronic obstructive pulmonary disease): Qualifiers: COPD type: unspecified COPD Qualified Code(s): J44.9 - Chronic obstructive pulmonary disease, unspecified (7) Morbid obesity: (8) Ulcer of left lower extremity, limited to breakdown of skin: Assessment and Plan: Wash ulcerations with soap and water. Apply thin layer of Santyl to the wound base and cover with dry sterile dressing consisting of 4 x 4 gauze and Kerlix daily. Plan Patient seen and evaluated. Patient is severely ill with limb and life threatening infection. His examination is consistent with a venous stasis ulcer which is superficial and there are no overt signs of deep space infection however he is severely swollen which may limit the reliability of my exam. His ulcer and infection may respond well to operative debridement however after discussing his case with Dr. Cooper (anesthesia) and Dr. Villareal (Internal Medicine) it is recommended surgery be delayed do to multisystem pathology. MRI may be considered to rule out an abscess however patient was very agitated overnight and may need sedated -I will discuss this with Dr. Villareal as well Cultures from wound and blood pending - continue broad spec abx (vanco/zosyn currently) Dressing orders placed Call with updates - will follow
--- NOTE | 2024-08-10 13:14 | P.IMPN_ITS ---
Progress Note: A&P Assessment and Plan (1) Sepsis: Assessment and Plan: Hemodynamically stable. Sepsis sec to Cellulitis and Pneumonia. F/u cultures. Qualifiers: Sepsis type: sepsis due to unspecified organism Sepsis acute organ dysfunction status: without acute organ dysfunction Qualified Code(s): A41.9 - Sepsis, unspecified organism (2) Cellulitis of left leg: Assessment and Plan: LLE Cellulitis, plan was to perform debridement in OR but patient unfit to undergo anesthesia due to his Pneumonia, resp failure. C/w IV abx for now. (3) Acute systolic heart failure: Assessment and Plan: Volume overload on exam, elevated BNP. Unofficial report from ECHO - shows severely reduced ED (20-25) that is new and not previously known. Given his risk factors and comorbid conditions, will need to r/o underlying CAD. Cardiology consulted. Currently on IV lasix. Monitor I/O, daily weight. (4) Acute on chronic respiratory failure with hypercapnia: Assessment and Plan: BIPAP taken off. His PCO2 was 98 when BIPAP was placed. ABG improved on BIPAP. Given his Obesity, suspect mild chronic hypercapnia at baseline from COPD/OHS (5) Acute on chronic respiratory failure with hypoxia: Assessment and Plan: Currently on High flow, needing 50% O2. Baseline is 4 L Worse due to CHF/PNEUMONIA Being diuresed and is currently on broad spectrum Abx. (6) Bilateral pneumonia: Assessment and Plan: Will treat as hospital acquired PNA. On Vancomycin/zosyn F/.u sputum culture. Qualifiers: Pneumonia type: due to unspecified organism Lung location: lower lobe of lung Qualified Code(s): J18.9 - Pneumonia, unspecified organism (7) New onset a-fib: Assessment and Plan: Reverted to NSR. Started on Eliquis for stroke px. Cardiology consulted. (8) Type 2 diabetes mellitus with diabetic polyneuropathy: Assessment and Plan: Non compliant. FSBS at goal. Monitor. C/w SSI, lantus Qualifiers: Diabetes mellitus superintendent terminal insulin use: without long-term use Qualified Code(s): E11.42 - Type 2 diabetes mellitus with diabetic poly neuropathy (9) COPD (chronic obstructive pulmonary disease): Assessment and Plan: No active wheezing today. C/w duonebs. Monitor Qualifiers: COPD type: unspecified COPD Qualified Code(s): J44.9 - Chronic obstructive pulmonary disease, unspecified (10) MURALI (obstructive sleep apnea): Assessment and Plan: Will need outpatient f/u. (11) Morbid obesity: Assessment and Plan: Will benefit from weight loss. He is a good candidate for bariatric surgery. (12) Hyperkalemia: Assessment and Plan: Repeat BMP at 2 pm Plan Patient changed to inpatient as he clinically worsened overnight and requires much higher level of care, close hemodynamic monitoring and is anticipated to require a minimum of 3-4 days of inpatient treatment of his multiple active problems including Pneumonia, Systolic HF, Acute resp failure with hypoxia and hypercapnia. Internal Medicine - PN: Subj Subjective Interval history: Seen and examined. Last night patient became increasingly confused, lethargic and combative. His work up revealed acute on chronic resp failure with hypoxia and hypercapnia along with Afib with RVR. He required treatment with BIPAP but was extremely agitated and combative and had to be transferred to ICU and started on Precedex drip so that he would keep his BIPAP on. Earlier today, when I evaluated him, he was still on Precedex and BIPAP. Repeat ABG showed considerable improvement and he was then taken off of BIPAP and placed on High flow O2. He later on woke up and while still slightly confused but was able to engage in conversation. While on high flow, he appears dyspneic and runs out of breath during conversation. Exam Constitutional Vital Signs, click to edit/add: Last Vital Signs Temp 97.4 F L 08/09/24 14:33 Pulse 65 08/10/24 12:00 Resp 22 H 08/10/24 12:00 BP 100/71 08/10/24 11:04 Pulse Ox 98 08/10/24 11:21 O2 Del Method Vapotherm 08/10/24 11:21 O2 Flow Rate 40 08/10/24 11:21 FiO2 50 08/10/24 11:21 General appearance: in distress respiratory, anxious and ill appearing Nutritional appearance: obese Respiratory Effort & inspection: tachypneic and labored Auscultation: rales and diminished lung sounds Other: Dyspneic at rest. unable to converse due to shortness of breath Cardio Common normals: regular rate, regular rhythm, S1 normal heart sound and S2 normal heart sound Jugular venous distention: JVD to the level of the angle of the jaw GI Common normals: soft to palpation, non-tender and no hepatosplenomegaly Inspection: abdominal distension Other: abdominal wall edema noted Extremity Other: Right TMA LLE -erythema, induration, tenderness extending all the way from foot to just below knee. Superficial seeping wounds seen on exam Neuro Common normals: oriented x3, moves all extremities, no focal motor deficits and no sensory deficits noted Psych Attention/concentration: attention grossly intact and concentration grossly intact Memory/cognition: memory grossly intact Insight: poor Judgement: poor Internal Medicine - PN: Obj Da Labs Labs: Laboratory Results - last 24 hr 08/09/24 08/09/24 08/09/24 14:54 20:48 22:58 WBC RBC Hgb Hct MCV MCH MCHC RDW Plt Count MPV Neut % (Auto) Lymph % (Auto) [place] % (Auto) Eos % (Auto) Baso % (Auto) Neut # (Auto) Lymph # (Auto) [place] # (Auto) Eos # (Auto) Baso # (Auto) Abs Immat Gran (auto) Imm/Tot Granulo (auto) Puncture Site L radial ABG pH 7.111 L* ABG pCO2 >98.3 H* ABG pO2 48.6 L* ABG HCO3 Tutoring Assistant ABG O2 Saturation 77.2 ABG Base Excess Tutoring Assistant Avinash Test Positive VBG pH VBG pCO2 O2 Liters/Min 9 FiO2 BiPAP Sodium Potassium Chloride Carbon Dioxide Anion Gap BUN Creatinine Est GFR ( Amer) Est GFR (Non-Af Amer) BUN/Creatinine Ratio Glucose Lactate 0.7 Calcium Total Bilirubin AST ALT Alkaline Phosphatase NT-Pro-B Natriuret Pep Total Protein Albumin Globulin Albumin/Globulin Ratio POC Glucose 188 H 08/09/24 08/10/24 08/10/24 23:52 05:24 09:29 WBC 14.2 H RBC 5.46 Hgb 16.0 Hct 53.3 MCV 97.6 H MCH 29.3 MCHC 30.0 RDW 15.5 H Plt Count 235 MPV 11.4 Neut % (Auto) 74.4 Lymph % (Auto) 7.9 L [place] % (Auto) 16.2 H Eos % (Auto) 0.6 L Baso % (Auto) 0.4 Neut # (Auto) 10.6 H Lymph # (Auto) 1.1 L [place] # (Auto) 2.3 H Eos # (Auto) 0.1 Baso # (Auto) 0.1 Abs Immat Gran (auto) 0.07 H Imm/Tot Granulo (auto) 0.5 Puncture Site Rrad ABG pH 7.394 ABG pCO2 40.2 ABG pO2 74.2 L ABG HCO3 24.5 ABG O2 Saturation 96.0 ABG Base Excess -0.4 Avinash Test Positive VBG pH 7.195 L 7.291 L VBG pCO2 72.5 H* 59.4 H O2 Liters/Min FiO2 30 BiPAP 20/10 Sodium 138 Potassium 5.9 H Chloride 105 Carbon Dioxide 29.4 Anion Gap 9.5 BUN 42.0 H Creatinine 1.43 H Est GFR ( Amer) >60 Est GFR (Non-Af Amer) 50 L BUN/Creatinine Ratio 29.4 Glucose 207 H Lactate Calcium 8.7 Total Bilirubin 1.1 H AST 32 ALT 47 Alkaline Phosphatase 95 NT-Pro-B Natriuret Pep 1354.0 H* Total Protein 5.9 L Albumin 2.6 L Globulin 3.3 Albumin/Globulin Ratio 0.8 POC Glucose 08/10/24 08/10/24 10:01 13:01 WBC RBC Hgb Hct MCV MCH MCHC RDW Plt Count MPV Neut % (Auto) Lymph % (Auto) [place] % (Auto) Eos % (Auto) Baso % (Auto) Neut # (Auto) Lymph # (Auto) [place] # (Auto) Eos # (Auto) Baso # (Auto) Abs Immat Gran (auto) Imm/Tot Granulo (auto) Puncture Site ABG pH ABG pCO2 ABG pO2 ABG HCO3 ABG O2 Saturation ABG Base Excess Avinash Test VBG pH VBG pCO2 O2 Liters/Min FiO2 BiPAP Sodium Potassium Chloride Carbon Dioxide Anion Gap BUN Creatinine Est GFR ( Amer) Est GFR (Non-Af Amer) BUN/Creatinine Ratio Glucose Lactate Calcium Total Bilirubin AST ALT Alkaline Phosphatase NT-Pro-B Natriuret Pep Total Protein Albumin Globulin Albumin/Globulin Ratio POC Glucose 187 H 206 H
--- NOTE | 2024-08-10 13:47 | SWNOTE1 ---
SW checked back to see if pt was awake. Pt is not at this time.
[2024-08-10] MEDS: ALPRAZOLAM 1 MG TABLET PO (14:26)
[2024-08-10] MEDS: METOPROLOL SUCCINATE 25 MG TAB.ER.24H PO (14:26)
[2024-08-10] MEDS: COLLAGENASE CLOSTRIDIUM HIST. 250 UNITS/GM 30 GRAM TUBE 1 APPLIC TOPICAL (14:30)
--- NOTE | 2024-08-10 14:57 | CT_ITS ---
[address] [address] Patient Name: TYLER SMITH MRN: [id number] date: 1960 Sex: M Assigned Patient Location: ICU Current Patient Location: ICU Accession/Order Number: [id number] Exam Date: 08/10/2024 15:25 Report Date: 08/10/2024 16:23 At the request of: SHAIKH BANDAR Procedure: CT lower leg LT w con EXAMINATION: CT lower leg LT w con HISTORY: cellulitis/abscess COMPARISON: No relevant comparison available. TECHNIQUE: Multi-planar CT images were created without and/or with IV contrast according to examination type. Dose reduction techniques were achieved by using automated exposure control and/or adjustment of mA and/or kV according to patient size and/or use of iterative reconstruction technique. FINDINGS: BONES: No acute abnormality, significant degenerative changes, or findings to suggest osteomyelitis. SOFT TISSUES: Prominent subcutaneous edema. No fluid collection, mass, or suspicious findings of the musculature and deeper soft tissues. EFFUSION: None visible. OTHER: Negative. CT/CT lower leg LT w con IMPRESSION: 1. Mild skin thickening and prominent subcutaneous edema; nonspecific but suggestive of cellulitis. Electronically authenticated by: ARIC DODSON Date: 08/10/2024 16:23
[2024-08-10 15:06] LABS: Anion Gap 5.9; BUN Creatinine Ratio 26.2; Calcium 8.8 mg/dL (8.5-10.1); Carbon Dioxide 33.7 mmol/L (21.0-32.0); Chloride 104 mmol/L (98-107); Estimated GFR (African America 44 (>=60 mL/min/1.73m^2); Estimated GFR (Non-African Ame 36 (>=60 mL/min/1.73m^2); Glucose 193 mg/dL (74-106); Potassium 5.6 mmol/L (3.5-5.1); Sodium 138 mmol/L (136-145)
[2024-08-10 16:25] LABS: Glucometer 150 mg/dL (74-106)
--- NOTE | 2024-08-10 19:24 | PM.CACN ---
History of Present Illness History of Present Illness Consult date: 08/10/24 Requesting physician: Shaikh Mono Chief complaint: Atrial flutter, CHF Narrative: The patient 63-year-old male without prior cardiac history. He has history of severe COPD and chronic respiratory failure on home oxygen at 4 L/min, diabetes mellitus, obesity, sleep apnea, long history of smoking, amputation of the right toes, and noncompliance. He presented because of left lower extremity cellulitis with open ulcer. Was found to have significant infection and osteomyelitis. He developed acute respiratory failure with his pH down to 7.19 and that he was on BiPAP with Precedex over night. Also he was noted to be in atrial flutter with rapid ventricular rate but the heart rate became better with Precedex. He is now on FiO2 of 40 to 50% without BiPAP. He is little lethargic. Patient denies palpitation. He denies any prior history of arrhythmia. He denies any chest discomfort. He has chronic shortness of breath and chronic leg edema. He denies dizziness. He is a smoker 2 packs/day for many years. He denies alcohol or illicit drugs Monitor showed atrial flutter with heart rate about 107. proBNP 1300 with normal less than 900. Creatinine on admission 1.3 with BUN 58 and potassium of 5. HbA1c 10%. Albumin 2.6. Chest x-ray showed possible small right pleural effusion and dense bibasilar infiltrates versus atelectasis. He was started today on Lasix 40 mg IV twice daily and he started also on Eliquis 5 mg twice daily Review of Systems ROS Narrative All systems were reviewed and they were negative except for the positive findings noted above in the history [facility] Medical History (Updated 08/10/24 @ 19:39 by Rock Cho MD) COPD (chronic obstructive pulmonary disease) ?J44.9 - Chronic obstructive pulmonary disease, unspecified (ICD-10) Morbid obesity ?E66.01 - Morbid (severe) obesity due to excess calories (ICD-10) Pneumonia ?J18.9 - Pneumonia, unspecified organism (ICD-10) Type 2 diabetes mellitus with diabetic polyneuropathy ?E11.42 - Type 2 diabetes mellitus with diabetic polyneuropathy (ICD-10) Acute osteomyelitis of right foot ?M86.171 - Other acute osteomyelitis, right ankle and foot (ICD-10) Abscess of right foot ?L02.611 - Cutaneous abscess of right foot (ICD-10) Cellulitis ?L03.90 - Cellulitis, unspecified (ICD-10) Edema, peripheral ?R60.0 - Localized edema (ICD-10) Upper respiratory infection ?J06.9 - Acute upper respiratory infection, unspecified (ICD-10) MURALI (obstructive sleep apnea) ?G47.33 - Obstructive sleep apnea (adult) (pediatric) (ICD-10) Smoker ?F17.200 - Nicotine dependence, unspecified, uncomplicated (ICD-10) Chronic respiratory failure with hypoxia ?J96.11 - Chronic respiratory failure with hypoxia (ICD-10) Dizziness ?R42 - Dizziness and giddiness (ICD-10) Diabetes ?E11.9 - Type 2 diabetes mellitus without complications (ICD-10) Surgical History H/O hernia repair ?Z98.890 - Other specified postprocedural states (ICD-10) ?Z87.19 - Personal history of other diseases of the digestive system (ICD-10) History of tonsillectomy ?Z90.89 - Acquired absence of other organs (ICD-10) History of appendectomy ?Z90.49 - Acquired absence of other specified parts of digestive tract (ICD-10) Family History Grandfather Family history of CHF (congestive heart failure) Family history of diabetes mellitus Family history of hypertension Family history of myocardial infarction Family history of stroke Mother Family history of cancer Social History Within the past year, how often did you have a drink containing alcohol: never Score interpretation: A score less than 4 is consistent with normal alcohol consumption. 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 Highest level of school completed/degree received: GED or equivalent Are you now , , , , never or living with a partner: Little interest or pleasure in doing things: not at all Feeling down, depressed, or hopeless: not at all Feel stressed/tense/nervous/anxious/difficulty sleeping: not at all Meds Home Medications and Allergies Home Medications ?Medication ?Instructions ?Recorded ?Confirmed ?Type glipizide 5 mg tablet 5 mg PO BID #60 tabs 03/30/24 08/09/24 Rx insulin detemir U-100 100 unit/mL 30 unit (0.3 mL) subcut QPM 30 03/30/24 08/09/24 Rx (3 mL) subcutaneous pen days #9 mL pen needle, diabetic 31 gauge x #50 ea 03/30/24 08/09/24 Rx 5/16 vancomycin 1.5 gram/250 mL in 0.9 1.5 g (250 mL) IV Q12H 28 days 03/30/24 08/09/24 Rx % sodium chloride intravenous Allergies Allergy/AdvReac Type Severity Reaction Status Date / Time No Known Drug Allergies Allergy Verified 08/09/24 11:31 Exam Narrative Exam Narrative: Is little lethargic but answers questions appropriately. He is oriented. HEENT within normal meds Neck: Supple normal motion, no carotid bruit, jugular venous pressure is elevated Lungs: Generalized decreased breath sounds and fine crackles on the bases Cardiovascular system, irregular irregularity, normal S1 and S2, no murmur Extremities severe redness and swelling of the left lower extremity with open ulcer at the mid of anterior aspect of the leg. +1 edema of the right lower extremity. Status post right toes amputation Constitutional Vital Signs, click to edit/add: Last Vital Signs Temp 97.8 F 08/10/24 16:00 Pulse 104 H 08/10/24 18:00 Resp 16 08/10/24 18:00 BP 100/63 08/10/24 18:00 Pulse Ox 97 08/10/24 18:00 O2 Del Method BIPAP 08/10/24 16:01 O2 Flow Rate 40 08/10/24 11:21 FiO2 70 08/10/24 16:01 Results Labs and Meds Lab results: Cardiac Enzymes 08/10/24 Range/Units 05:24 AST 32 (15-37) U/L CBC 08/10/24 Range/Units 05:24 WBC 14.2 H (4.0-11.0) 10^3/uL RBC 5.46 (4.70-6.10) 10^6/uL Hgb 16.0 (14.0-18.0) g/dL Hct 53.3 (42.0-54.0) % Plt Count 235 (150-450) 10^3/uL Neut # (Auto) 10.6 H (1.4-6.5) 10^3/uL Lymph # (Auto) 1.1 L (1.2-3.8) 10^3/uL [place] # (Auto) 2.3 H (0.3-0.8) 10^3/uL Eos # (Auto) 0.1 (0.0-0.7) 10^3/uL Baso # (Auto) 0.1 (0.0-0.1) 10^3/uL Comprehensive Metabolic Panel 08/10/24 08/10/24 Range/Units 05:24 14:12 Sodium 138 138 (136-145) mmol/L Potassium 5.9 H 5.6 H (3.5-5.1) mmol/L Chloride 105 104 (98-107) mmol/L Carbon Dioxide 29.4 33.7 H (21.0-32.0) mmol/L BUN 42.0 H 49.0 H (7.0-18.0) mg/dL Creatinine 1.43 H 1.87 H (0.70-1.30) mg/dL Glucose 207 H 193 H (74-106) mg/dL Calcium 8.7 8.8 (8.5-10.1) mg/dL AST 32 (15-37) U/L ALT 47 (16-63) U/L Alkaline Phosphatase 95 (46-116) U/L Total Protein 5.9 L (6.4-8.2) g/dL Albumin 2.6 L (3.4-5.0) g/dL Intake and Output 08/10/24 08/10/24 08/10/24 07:59 15:59 23:59 Intake Total 1705.724 / 6229.486 981.542 / 1281.542 300 / 1281.542 Output Total 300 / 300 Balance 1705.724 / 6229.486 981.542 / 981.542 0 / 981.542 Intake: Oral 250 / 250 IV 1705.724 / 5779.486 981.542 / 1031.542 50 / 1031.542 Dexmedetomidine HCl 200 mcg In 155.724 / 179.486 91.959 / 91.959 0 / 91.959 0.9 % Sodium Chloride 50 ml @ 0 .2 MCG/KG/HR 8.289 mls/hr IV TITR GALEN Rx#:[id number] Lactated Ringer's Solution 1, 1000 / 1000 889.583 / 889.583 000 ml @ 125 mls/hr IV .Q8H GALEN Rx#:[id number] Piperacillin Sodium/Tazobactam 50 / 50 50 / 50 3.375 gm In 0.9 % Sodium Chloride 50 ml @ 12.5 mls/hr IV Q8H GALEN Rx#:[id number] Vancomycin HCl 2,000 mg In 0.9 500 / 500 % Sodium Chloride 500 ml @ 250 mls/hr IV Q24H GALEN Rx#:[id number] Output: Urine Amount (Catheter) 300 / 300 Urethral 300 / 300 EKG 08/09/2024 showed atrial flutter with rapid ventricular rate 107 bpm, low voltage, possible old anteroseptal and high lateral infarct Echo 08/10/2024 Severely reduced left ventricular systolic function globally, ejection fraction 20 to 25% Moderately dilated right ventricle with reduced systolic function Mild pulmonary hypertension, RVSP 37 mmHg Mildly dilated left atrium and moderately dilated right atrium Mild tricuspid regurgitation Dilated IVC with reduced respiratory collapse consistent with elevated central venous pressure Technically difficult study Assessment and Plan Assessment and Plan (1) Atrial flutter with rapid ventricular response: (2) Cardiomyopathy: (3) Acute systolic heart failure: (4) Cellulitis of left leg: (5) Ulcer of left lower extremity, limited to breakdown of skin: (6) Sepsis: Qualifiers: Sepsis type: sepsis due to unspecified organism Sepsis acute organ dysfunction status: without acute organ dysfunction Qualified Code(s): A41.9 - Sepsis, unspecified organism (7) Acute on chronic respiratory failure with hypoxia: (8) Acute on chronic respiratory failure with hypercapnia: (9) Bilateral pneumonia: Qualifiers: Pneumonia type: due to unspecified organism Lung location: lower lobe of lung Qualified Code(s): J18.9 - Pneumonia, unspecified organism (10) Type 2 diabetes mellitus with diabetic polyneuropathy: 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 Qualified Code(s): E11.42 - Type 2 diabetes mellitus with diabetic polyneuropathy (11) MURALI (obstructive sleep apnea): (12) COPD (chronic obstructive pulmonary disease): Qualifiers: COPD type: unspecified COPD Qualified Code(s): J44.9 - Chronic obstructive pulmonary disease, unspecified (13) Morbid obesity: (14) Hyperkalemia: (15) Chronic kidney disease: Plan Continue Eliquis I will start him on Toprol XL 25 mg daily for ventricular rate control, may need to increase dose if the ventricular rate goes up as Precedex is weaned off I agree starting him on Lasix 40 mg IV twice daily with close monitoring of his renal function, electrolytes, fluid balance Consider adding another guideline-directed medical treatment such as ARB, Aldactone and Farxiga depends on the response He will need ischemic workup when he is clinically doing better probably with cardiac catheterization Patient should stop smoking Continue current treatment of infection Addendum: I saw the patient earlier around 10 AM however when I finished the note later in the day I noticed that his creatinine is up indicating that probably he is hypovolemic and not fluid overloaded despite low ejection fraction therefore we will stop Lasix and start him on gentle IV fluids with close monitoring of his renal function Rock cho MD, FACC
--- NOTE | 2024-08-10 20:10 | ECG_ITS ---
The [facility] Test Date: 2024-08-10 Pat Name: TYLER SMITH Department: Room: 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
[2024-08-10] MEDS: VANCOMYCIN HCL 2,000 MG in 0.9 % SODIUM CHLORIDE 500 ML 250 MG IV (20:21)
[2024-08-10] MEDS: DIGOXIN 500 MCG/2 ML AMPUL 250 MCG IV (21:15)
[2024-08-10] MEDS: 0.9 % SODIUM CHLORIDE 1,000 ML 75 ML IV (21:16)
[2024-08-10] MEDS: APIXABAN 5 MG TABLET PO (21:16)
[2024-08-10 21:29] LABS: Glucometer 202 mg/dL (74-106)
[2024-08-10] MEDS: INSULIN GLARGINE 300 UNIT/3 ML INSULN.PEN 25 UNIT SQ (21:32)
[2024-08-10] MEDS: METOPROLOL TARTRATE 5 MG/5 ML VIAL 2.5 MG IVP (22:11)
--- NOTE | 2024-08-10 22:51 | RESP.RT ---
decreased to 50% at this time
[2024-08-11] VITALS (36 sets, daily range): BP systolic 97–134; BP diastolic 71–106; PULSE 105–130; RESP 18; TEMP 36.5–36.6; O2SAT 86–96
[2024-08-11] MEDS: PIPERACILLIN SODIUM/TAZOBACTAM 3.375 GM in 0.9 % SODIUM CHLORIDE 50 ML IV ×3 (05:00→22:10)
[2024-08-11 05:36] LABS: Basophils Absolute Auto 0.1 10^3/uL (0.0-0.1); Basophils Percent Auto 0.5 % (0.2-2.0); Eosinophils Absolute Auto 0.1 10^3/uL (0.0-0.7); Eosinophils Percent Auto 0.6 % (0.9-7.0); Hematocrit 52.4 % (42.0-54.0); Immature Granulocytes Abs Auto 0.08 10^3/uL (0.00-0.03); Immature Granulocytes Pct Auto 0.5 % (0.0-0.5); Lymphocytes Absolute Auto 1.3 10^3/uL (1.2-3.8); Mean Corpuscular HGB Conc 30.5 g/dL (29.9-35.2); Mean Corpuscular Hemoglobin 29.5 pg (25.9-34.0); Mean Corpuscular Volume 96.7 fL (80.0-94.0); Mean Platelet Volume 10.9 fL (9.5-13.5); Monocytes Absolute Auto 1.9 10^3/uL (0.3-0.8); Monocytes Percent Auto 12.8 % (1.7-12.0); Neutrophils Absolute Auto 11.2 10^3/uL (1.4-6.5); Neutrophils Percent Auto 76.6 % (43.0-75.0); Platelet Count 296 10^3/uL (150-450); Red Blood Count 5.42 10^6/uL (4.70-6.10); Red Cell Distribution Width 15.8 % (11.0-15.0); White Blood Count 14.6 10^3/uL (4.0-11.0)
[2024-08-11 05:59] LABS: Alanine Aminotransferase 48 U/L (16-63); Albumin Globulin Ratio 0.8; Albumin Level 2.7 g/dL (3.4-5.0); Alkaline Phosphatase 97 U/L (46-116); Anion Gap 13.6; Aspartate Amino Transferase 39 U/L (15-37); BUN Creatinine Ratio 28.3; Calcium 8.3 mg/dL (8.5-10.1); Carbon Dioxide 27.4 mmol/L (21.0-32.0); Chloride 102 mmol/L (98-107); Estimated GFR (African America 41 (>=60 mL/min/1.73m^2); Estimated GFR (Non-African Ame 34 (>=60 mL/min/1.73m^2); Globulin 3.4 g/dL; Glucose 171 mg/dL (74-106); Sodium 138 mmol/L (136-145); Total Protein 6.1 g/dL (6.4-8.2)
[2024-08-11] MEDS: METOPROLOL SUCCINATE 25 MG TAB.ER.24H PO (06:08)
[2024-08-11 06:26] LABS: Thyroid Stimulating Hormone 2.166 uIU/mL (0.358-3.740)
[2024-08-11] MEDS: METOPROLOL TARTRATE 5 MG/5 ML VIAL IVP (07:38)
--- NOTE | 2024-08-11 08:00 | PC.NURSE ---
patient taking vapotherm off and refusing to put it back on states its too loud , rn educated patient on importance of the oxygen but patient still refusing to put vapotherm back on. RT called
[2024-08-11] MEDS: FUROSEMIDE 40 MG/4 ML VIAL IVP ×2 (08:14→11:12)
[2024-08-11] MEDS: OXYCODONE HCL 5 MG TABLET PO ×2 (08:15→20:41)
[2024-08-11] MEDS: METOPROLOL SUCCINATE 50 MG TAB.ER.24H 100 MG PO (08:15)
[2024-08-11] MEDS: APIXABAN 5 MG TABLET PO ×2 (08:15→20:41)
[2024-08-11] MEDS: INSULIN ASPART 300 UNIT/3 ML PEN SUBQ ×3 (08:15→22:11)
[2024-08-11] MEDS: ACETAMINOPHEN 325 MG TABLET 650 MG PO (08:15)
[2024-08-11] MEDS: COLLAGENASE CLOSTRIDIUM HIST. 250 UNITS/GM 30 GRAM TUBE 1 APPLIC TOPICAL (08:25)
--- NOTE | 2024-08-11 10:00 | PC.NURSE ---
patient kept taking off non rebreather and refusing to wear it, states the sound is too much , patient educated on importance of oxygen but patient continuing to refuse to put non rebreather back on. Patient agreeable to put bipap on at this time
[2024-08-11] MEDS: 0.9 % SODIUM CHLORIDE 1,000 ML 75 ML IV (10:37)
--- NOTE | 2024-08-11 10:56 | CM.NOTE ---
Rounds made with Dr. Villareal, discussed plan of care with pt. No discharge today, PT and OT will evaluate pt today. Pt is awake and able to answer questions appropriately today.
--- NOTE | 2024-08-11 11:09 | P.IMPN_ITS ---
Progress Note: A&P Assessment and Plan (1) Atrial flutter with rapid ventricular response: Assessment and Plan: Rate improved from before. Increased Toprol to 100 mg once daily. Eliquis for stroke px. (2) Cardiomyopathy: Assessment and Plan: New finding. Not previously known. Will need ischemic work up once medically stable. Qualifiers: Cardiomyopathy type: unspecified Qualified Code(s): I42.9 - Cardiomyopathy, unspecified (3) Acute systolic heart failure: Assessment and Plan: Volume overload on exam. Increase Lasix to 80 q12. Monitor I.O, daily weights. (4) Cellulitis of left leg: Assessment and Plan: No abscess on CT. C/w IV abx. F/u cultures. (5) Ulcer of left lower extremity, limited to breakdown of skin: Assessment and Plan: Podiatry on board. On IV abx. Wound consult. (6) Sepsis: Assessment and Plan: Better from yesterday overall. On Lasix for CHF. on IV abx for Pneumonia/Cellulitis. Qualifiers: Sepsis type: sepsis due to unspecified organism Sepsis acute organ dysfunction status: without acute organ dysfunction Qualified Code(s): A41.9 - Sepsis, unspecified organism (7) Acute on chronic respiratory failure with hypoxia: Assessment and Plan: Requiring BIPAP/high flow. Was refusing high flow in the morning due to its noise. (8) Acute on chronic respiratory failure with hypercapnia: Assessment and Plan: BIPAP as needed. Repeat ABG today (9) Bilateral pneumonia: Assessment and Plan: on broad spectrum abx. Will treat as hospital acquired pneumia Qualifiers: Pneumonia type: due to unspecified organism Lung location: lower lobe of lung Qualified Code(s): J18.9 - Pneumonia, unspecified organism (10) KRISTINE (acute kidney injury): Assessment and Plan: Renal function worsening gradually. Likely cardiorenal and needs diuresis. Volume overload on exam. (11) Type 2 diabetes mellitus with diabetic polyneuropathy: Assessment and Plan: c/w basal/bolus insulin. Poorly controlled. 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 Will need outpatient f/u (13) COPD (chronic obstructive pulmonary disease): Assessment and Plan: C/w duonebs. No need for steroids as no wheezing Qualifiers: COPD type: unspecified COPD Qualified Code(s): J44.9 - Chronic obstructive pulmonary disease, unspecified (14) Morbid obesity: Assessment and Plan: Will benefit from weight loss. Defer to outpatient. (15) Hyperkalemia: Assessment and Plan: Resolved Internal Medicine - PN: Subj Subjective Interval history: Seen and examined. No overnight events. Intermittent confusion. Using BIPAP intermittently if patient co operates. Refusing High Flow O2. Good UO on lasix but still volume overload on exam Exam Constitutional Vital Signs, click to edit/add: Last Vital Signs Temp 97.8 F 08/10/24 16:00 Pulse 123 H 08/11/24 10:00 Resp 18 08/11/24 07:45 BP 109/77 08/11/24 07:45 Pulse Ox 93 L 08/11/24 06:03 O2 Del Method Vapotherm 08/11/24 06:03 O2 Flow Rate 40 08/11/24 06:03 FiO2 50 08/11/24 06:03 General appearance: cooperative, comfortable, lethargic and ill appearing Respiratory Common normals: no use of accessory muscles Effort & inspection: able to speak in complete sentences and tachypneic Auscultation: rales and diminished lung sounds Cardio Common normals: regular rhythm, S1 normal heart sound and S2 normal heart sound Rate: tachycardic GI Common normals: soft to palpation, non-tender and no hepatosplenomegaly Inspection: abdominal distension Other: abdominal wall edema noted Extremity Other: Right TMA LLE -erythema, induration, tenderness extending all the way from foot to just below knee. Superficial seeping wounds seen on exam Neuro Common normals: oriented x3, moves all extremities, no focal motor deficits and no sensory deficits noted Psych Attention/concentration: attention grossly intact and concentration grossly intact Memory/cognition: memory grossly intact Insight: poor Judgement: poor Internal Medicine - PN: Obj Da Labs Labs: Laboratory Results - last 24 hr 08/10/24 08/10/24 08/10/24 05:24 13:01 14:12 WBC RBC Hgb Hct MCV MCH MCHC RDW Plt Count MPV Neut % (Auto) Lymph % (Auto) [place] % (Auto) Eos % (Auto) Baso % (Auto) Neut # (Auto) Lymph # (Auto) [place] # (Auto) Eos # (Auto) Baso # (Auto) Abs Immat Gran (auto) Imm/Tot Granulo (auto) Sodium 138 Potassium 5.6 H Chloride 104 Carbon Dioxide 33.7 H Anion Gap 5.9 BUN 49.0 H Creatinine 1.87 H Est GFR ( Amer) 44 L Est GFR (Non-Af Amer) 36 L BUN/Creatinine Ratio 26.2 Glucose 193 H Calcium 8.8 Total Bilirubin AST ALT Alkaline Phosphatase NT-Pro-B Natriuret Pep 1354.0 H* Total Protein Albumin Globulin Albumin/Globulin Ratio TSH POC Glucose 206 H 08/10/24 08/10/24 08/11/24 16:24 21:28 05:05 WBC 14.6 H RBC 5.42 Hgb 16.0 Hct 52.4 MCV 96.7 H MCH 29.5 MCHC 30.5 RDW 15.8 H Plt Count 296 MPV 10.9 Neut % (Auto) 76.6 H Lymph % (Auto) 9.[address] [place] % (Auto) 12.8 H Eos % (Auto) 0.6 L Baso % (Auto) 0.5 Neut # (Auto) 11.2 H Lymph # (Auto) 1.3 [place] # (Auto) 1.9 H Eos # (Auto) 0.1 Baso # (Auto) 0.1 Abs Immat Gran (auto) 0.08 H Imm/Tot Granulo (auto) 0.5 Sodium 138 Potassium 5.0 Chloride 102 Carbon Dioxide 27.4 Anion Gap 13.6 BUN 56.0 H Creatinine 1.98 H Est GFR ( Amer) 41 L Est GFR (Non-Af Amer) 34 L BUN/Creatinine Ratio 28.3 Glucose 171 H Calcium 8.3 L Total Bilirubin 1.0 AST 39 H ALT 48 Alkaline Phosphatase 97 NT-Pro-B Natriuret Pep Total Protein 6.1 L Albumin 2.7 L Globulin 3.4 Albumin/Globulin Ratio 0.8 TSH 2.166 POC Glucose 150 H 202 H Urinary Catheter Management Urinary Catheter Management Urethral: Cath placed during this visit: yes Urethral indwelling: Yes Reason for continuing: measure accurate output Insertion date: 08/10/24 Insertion time: 16:15
[2024-08-11] MEDS: IPRATROPIUM/ALBUTEROL SULFATE 3 ML AMPUL.NEB IH ×3 (11:20→20:02)
[2024-08-11 11:30] LABS: Glucometer 193 mg/dL (74-106)
[2024-08-11 13:22] LABS: Allen Test POSITIVE (POSITIVE); BIPAP Pressure 20/10; Base Excess ABG 0 mmol/L (-2.0-2.0); Fractionated Inspired Oxygen 50 %; HCO3 ABG 27.5 mmol/L (22.0-26.0); O2 Mode BIPAP; PO2 ABG 72.7 mmHg (80.0-100.0); Puncture Site RR; Rate 18
[2024-08-11 13:23] LABS: Minute Volume 14.9; Tidal Volume 765
[2024-08-11 13:24] LABS: ABG PCO2 65.1 mmHg (35.0-45.0); pH ABG 7.234 (7.350-7.450)
[2024-08-11 14:34] LABS: Anion Gap 12.4; BUN Creatinine Ratio 28.7; Calcium 8.6 mg/dL (8.5-10.1); Carbon Dioxide 28.2 mmol/L (21.0-32.0); Chloride 102 mmol/L (98-107); Estimated GFR (African America 42 (>=60 mL/min/1.73m^2); Estimated GFR (Non-African Ame 35 (>=60 mL/min/1.73m^2); Glucose 175 mg/dL (74-106); Potassium 4.6 mmol/L (3.5-5.1); Sodium 138 mmol/L (136-145)
[2024-08-11 16:06] LABS: Glucometer 143 mg/dL (74-106)
[2024-08-11] MEDS: VANCOMYCIN HCL 2,000 MG in 0.9 % SODIUM CHLORIDE 500 ML 250 MG IV (19:28)
[2024-08-11] MEDS: FUROSEMIDE 40 MG/4 ML VIAL 80 MG IVP (20:42)
[2024-08-11 20:45] LABS: Glucometer 201 mg/dL (74-106)
[2024-08-11] MEDS: INSULIN GLARGINE 300 UNIT/3 ML INSULN.PEN 25 UNIT SQ (22:12)
[2024-08-12] VITALS (43 sets, daily range): BP systolic 103–139; BP diastolic 74–96; PULSE 81–128; RESP 18; TEMP 36.4–36.9; O2SAT 78–97
[2024-08-12] MEDS: 0.9 % SODIUM CHLORIDE 1,000 ML 75 ML IV (01:21)
[2024-08-12 05:23] LABS: Basophils Percent Auto 0.4 % (0.2-2.0); Eosinophils Absolute Auto 0.1 10^3/uL (0.0-0.7); Eosinophils Percent Auto 0.7 % (0.9-7.0); Hematocrit 53.2 % (42.0-54.0); Lymphocytes Absolute Auto 0.9 10^3/uL (1.2-3.8); Lymphocytes Percent Auto 8.1 % (20.5-60.0); Mean Corpuscular HGB Conc 30.1 g/dL (29.9-35.2); Mean Corpuscular Hemoglobin 29.5 pg (25.9-34.0); Mean Platelet Volume 10.9 fL (9.5-13.5); Monocytes Absolute Auto 1.5 10^3/uL (0.3-0.8); Monocytes Percent Auto 14.5 % (1.7-12.0); Neutrophils Absolute Auto 7.9 10^3/uL (1.4-6.5); Neutrophils Percent Auto 75.3 % (43.0-75.0); Platelet Count 272 10^3/uL (150-450); Red Blood Count 5.43 10^6/uL (4.70-6.10); Red Cell Distribution Width 16.1 % (11.0-15.0); White Blood Count 10.5 10^3/uL (4.0-11.0)
[2024-08-12] MEDS: IPRATROPIUM/ALBUTEROL SULFATE 3 ML AMPUL.NEB IH ×3 (05:28→20:01)
[2024-08-12 05:49] LABS: Alanine Aminotransferase 46 U/L (16-63); Albumin Globulin Ratio 0.7; Albumin Level 2.6 g/dL (3.4-5.0); Alkaline Phosphatase 98 U/L (46-116); Anion Gap 9.9; Aspartate Amino Transferase 35 U/L (15-37); BUN Creatinine Ratio 32.2; Bilirubin Total 0.9 mg/dL (0.2-1.0); Calcium 8.2 mg/dL (8.5-10.1); Carbon Dioxide 30.5 mmol/L (21.0-32.0); Chloride 102 mmol/L (98-107); Estimated GFR (African America 47 (>=60 mL/min/1.73m^2); Estimated GFR (Non-African Ame 39 (>=60 mL/min/1.73m^2); Globulin 3.8 g/dL; Glucose 171 mg/dL (74-106); Potassium 4.4 mmol/L (3.5-5.1); Sodium 138 mmol/L (136-145); Total Protein 6.4 g/dL (6.4-8.2)
[2024-08-12] MEDS: PIPERACILLIN SODIUM/TAZOBACTAM 3.375 GM in 0.9 % SODIUM CHLORIDE 50 ML IV ×3 (06:14→22:41)
[2024-08-12 07:33] LABS: Glucometer 167 mg/dL (74-106)
--- NOTE | 2024-08-12 07:43 | XR_ITS ---
The [address] [address] Patient Name: TYLER SMITH MRN: [id number] date: 1960 Sex: M Assigned Patient Location: ICU Current Patient Location: ICU Accession/Order Number: [id number] Exam Date: 08/12/2024 08:10 Report Date: 08/12/2024 08:29 At the request of: SHAIKH BANDAR Procedure: XR chest 1V EXAM: XR chest 1V HISTORY: PNA/CHF COMPARISON: 08/09/2024 TECHNIQUE: AP portable FINDINGS: LUNGS: Low lung volumes. Mild bibasilar infiltrates partially obscuring the hemidiaphragms VASCULATURE: No increased pulmonary vasculature. PLEURA: No pneumothorax, effusion, or pleural thickening. CARDIAC: No cardiomegaly or cardiac silhouette abnormality. MEDIASTINUM: No visible mass or adenopathy. BONES: No fracture or visible bone lesion. OTHER: Negative. XR/XR chest 1V IMPRESSION: Mild bibasilar infiltrates Electronically authenticated by: PRESTON MILAN Date: 08/12/2024 08:29
[2024-08-12] MEDS: DIGOXIN 500 MCG/2 ML AMPUL 125 MCG IV ×3 (08:10→20:19)
[2024-08-12] MEDS: FUROSEMIDE 40 MG/4 ML VIAL 80 MG IVP (08:11)
[2024-08-12] MEDS: OXYCODONE HCL 5 MG TABLET PO ×2 (08:11→21:28)
[2024-08-12] MEDS: APIXABAN 5 MG TABLET PO ×2 (08:11→20:27)
[2024-08-12] MEDS: METOPROLOL SUCCINATE 50 MG TAB.ER.24H 150 MG PO (08:11)
[2024-08-12] MEDS: INSULIN ASPART 300 UNIT/3 ML PEN SUBQ ×4 (08:14→21:29)
[2024-08-12] MEDS: COLLAGENASE CLOSTRIDIUM HIST. 250 UNITS/GM 30 GRAM TUBE 1 APPLIC TOPICAL (08:30)
--- NOTE | 2024-08-12 10:32 | CM.NOTE ---
Rounds made with Dr. Villareal, pt up in chair and more awake today. Continue IV antibiotics and PT and OT for strengthening.
--- NOTE | 2024-08-12 10:58 | P.IMPN_ITS ---
Progress Note: A&P Assessment and Plan (1) Atrial flutter with rapid ventricular response: Assessment and Plan: Continues to have poorly controlled HR. Increase Toprol to 150 daily. Added IV digoxin load for rate control. Eliquis for stroke px. (2) Cardiomyopathy: Assessment and Plan: New finding. Not previously known. Will need ischemic work up once medically stable. Qualifiers: Cardiomyopathy type: unspecified Qualified Code(s): I42.9 - Cardiomyopathy, unspecified (3) Acute systolic heart failure: Assessment and Plan: Good UO on lasix. Improving volume status. Decrease Lasix to 40 q12. Monitor I.O, daily weights. (4) Cellulitis of left leg: Assessment and Plan: No abscess on CT. C/w IV abx. F/u cultures. (5) Ulcer of left lower extremity, limited to breakdown of skin: Assessment and Plan: Podiatry on board. On IV abx. Wound consult. (6) Sepsis: Assessment and Plan: Improving gradually. Sepsis resolved. On Lasix for CHF. on IV abx for Pneumonia/Cellulitis. Qualifiers: Sepsis type: sepsis due to unspecified organism Sepsis acute organ dysfunction status: without acute organ dysfunction Qualified Code(s): A41.9 - Sepsis, unspecified organism (7) Acute on chronic respiratory failure with hypoxia: Assessment and Plan: Currently on high flow. BIPAP as needed. Uses 4 L at baseline. (8) Acute on chronic respiratory failure with hypercapnia: Assessment and Plan: BIPAP at night or as needed. (9) Bilateral pneumonia: Assessment and Plan: on broad spectrum abx. Will treat as hospital acquired pneumonia due to recent abx use/hospital admission. CXR stable. Clinically improving. Qualifiers: Pneumonia type: due to unspecified organism Lung location: lower lobe of lung Qualified Code(s): J18.9 - Pneumonia, unspecified organism (10) KRISTINE (acute kidney injury): Assessment and Plan: Renal function gradually improving with Diuresis. Monitor closely. Need to c/w Diuresis. (11) Type 2 diabetes mellitus with diabetic polyneuropathy: Assessment and Plan: c/w basal/bolus insulin. Poorly controlled at baseline. FSBS at goal currently. Qualifiers: Diabetes mellitus mcfp insulin use: without mcfp use Qualified Code(s): E11.42 - Type 2 diabetes mellitus with diabetic polyneuropathy (12) MURALI (obstructive sleep apnea): Assessment and Plan: BIPAP at night. Will need outpatient f/u (13) COPD (chronic obstructive pulmonary disease): Assessment and Plan: C/w duonebs. No need for steroids as no wheezing Qualifiers: COPD type: unspecified COPD Qualified Code(s): J44.9 - Chronic obstructive pulmonary disease, unspecified (14) Morbid obesity: Assessment and Plan: Will benefit from weight loss. Defer to outpatient. (15) Hyperkalemia: Assessment and Plan: Resolved Internal Medicine - PN: Subj Subjective Interval history: Seen and examined. No overnight events. Doing considerably better. Currently on high flow o2, requiring 60% FiO2. Good UO on Lasix. Exam Constitutional Vital Signs, click to edit/add: Last Vital Signs Temp 98 F 08/12/24 09:00 Pulse 99 H 08/12/24 10:00 Resp 20 08/12/24 04:53 BP 120/90 08/12/24 04:53 Pulse Ox 94 L 08/12/24 05:43 O2 Del Method Vapotherm 08/12/24 10:26 O2 Flow Rate 30 08/12/24 10:26 FiO2 50 08/12/24 10:26 General appearance: cooperative, comfortable and ill appearing Nutritional appearance: obese Respiratory Common normals: no use of accessory muscles Effort & inspection: able to speak in complete sentences and tachypneic Auscultation: rhonchi and diminished lung sounds Cardio Common normals: S1 normal heart sound and S2 normal heart sound Rate: tachycardic Rhythm: abnormal rhythm GI Common normals: soft to palpation, non-tender and no hepatosplenomegaly Inspection: abdominal distension Other: abdominal wall edema noted Extremity Other: Right TMA LLE -erythema, induration, tenderness extending all the way from foot to just below knee. Superficial seeping wounds seen on exam Neuro Common normals: oriented x3, moves all extremities, no focal motor deficits and no sensory deficits noted Psych Attention/concentration: attention grossly intact and concentration grossly intact Memory/cognition: memory grossly intact Insight: poor Judgement: poor Internal Medicine - PN: Obj Da Labs Labs: Laboratory Results - last 24 hr 08/11/24 08/11/24 08/11/24 11:27 13:14 14:08 WBC RBC Hgb Hct MCV MCH MCHC RDW Plt Count MPV Neut % (Auto) Lymph % (Auto) [place] % (Auto) Eos % (Auto) Baso % (Auto) Neut # (Auto) Lymph # (Auto) [place] # (Auto) Eos # (Auto) Baso # (Auto) Abs Immat Gran (auto) Imm/Tot Granulo (auto) Puncture Site Rr ABG pH 7.234 L* ABG pCO2 65.1 H* ABG pO2 72.7 L ABG HCO3 27.5 H ABG O2 Saturation 94.0 ABG Base Excess 0 Avinash Test Positive Minute Volume 14.9 FiO2 50 Tidal Volume 765 BiPAP 20/10 Sodium 138 Potassium 4.6 Chloride 102 Carbon Dioxide 28.2 Anion Gap 12.4 BUN 56.0 H Creatinine 1.95 H Est GFR ( Amer) 42 L Est GFR (Non-Af Amer) 35 L BUN/Creatinine Ratio 28.7 Glucose 175 H Calcium 8.6 Total Bilirubin AST ALT Alkaline Phosphatase Total Protein Albumin Globulin Albumin/Globulin Ratio POC Glucose 193 H 08/11/24 08/11/24 08/12/24 16:04 20:43 04:42 WBC 10.5 RBC 5.43 Hgb 16.0 Hct 53.2 MCV 98.0 H MCH 29.5 MCHC 30.1 RDW 16.1 H Plt Count 272 MPV 10.9 Neut % (Auto) 75.3 H Lymph % (Auto) 8.1 L [place] % (Auto) 14.5 H Eos % (Auto) 0.7 L Baso % (Auto) 0.4 Neut # (Auto) 7.9 H Lymph # (Auto) 0.9 L [place] # (Auto) 1.5 H Eos # (Auto) 0.1 Baso # (Auto) 0.0 Abs Immat Gran (auto) 0.10 H Imm/Tot Granulo (auto) 1.0 H Puncture Site ABG pH ABG pCO2 ABG pO2 ABG HCO3 ABG O2 Saturation ABG Base Excess Avinash Test Minute Volume FiO2 Tidal Volume BiPAP Sodium 138 Potassium 4.4 Chloride 102 Carbon Dioxide 30.5 Anion Gap 9.9 BUN 57.0 H Creatinine 1.77 H Est GFR ( Amer) 47 L Est GFR (Non-Af Amer) 39 L BUN/Creatinine Ratio 32.2 Glucose 171 H Calcium 8.2 L Total Bilirubin 0.9 AST 35 ALT 46 Alkaline Phosphatase 98 Total Protein 6.4 Albumin 2.6 L Globulin 3.8 Albumin/Globulin Ratio 0.7 POC Glucose 143 H 201 H 08/12/24 07:23 WBC RBC Hgb Hct MCV MCH MCHC RDW Plt Count MPV Neut % (Auto) Lymph % (Auto) [place] % (Auto) Eos % (Auto) Baso % (Auto) Neut # (Auto) Lymph # (Auto) [place] # (Auto) Eos # (Auto) Baso # (Auto) Abs Immat Gran (auto) Imm/Tot Granulo (auto) Puncture Site ABG pH ABG pCO2 ABG pO2 ABG HCO3 ABG O2 Saturation ABG Base Excess Avinash Test Minute Volume FiO2 Tidal Volume BiPAP Sodium Potassium Chloride Carbon Dioxide Anion Gap BUN Creatinine Est GFR ( Amer) Est GFR (Non-Af Amer) BUN/Creatinine Ratio Glucose Calcium Total Bilirubin AST ALT Alkaline Phosphatase Total Protein Albumin Globulin Albumin/Globulin Ratio POC Glucose 167 H Urinary Catheter Management Urinary Catheter Management Urethral: Cath placed during this visit: yes Urethral indwelling: Yes Reason for continuing: measure accurate output Insertion date: 08/10/24 Insertion time: 16:15
[2024-08-12 11:06] LABS: Glucometer 224 mg/dL (74-106)
--- NOTE | 2024-08-12 12:05 | P.PN_ITS ---
Progress Note: Subjective Subjective Interval history: Patient seen at bedside. He is arousable and does not converse well. Exam Narrative Exam Narrative: Skin: Dressing on left leg is saturated with serous drainage. Upon removal there are granular superficial wounds on the anterior and medial aspects of the leg. Mild periwound maceration. No purulence. Foot is cool to the touch. There is erythema over chronic skin changes consistent with hemosiderin deposition. Vasc: The erythema and warmth has improved somewhat but the limb still remains severely swollen. Pedal pulses are nonpalpable which may be secondary to severe swelling. Capillary refill is less than 5 seconds to the left toes MSK: Palpation of the foot dorsally and plantarly as well as all 4 compartments of the leg are pain-free. Patient did respond to lifting the limb upon removing the dressing. Strength and range of motion were deferred Constitutional Vital Signs, click to edit/add: Last Vital Signs Temp 98 F 08/12/24 09:00 Pulse 102 H 08/12/24 10:00 Resp 17 08/12/24 10:00 BP 127/92 H 08/12/24 11:22 Pulse Ox 85 L 08/12/24 11:22 O2 Del Method Vapotherm 08/12/24 10:26 O2 Flow Rate 30 08/12/24 10:26 FiO2 50 08/12/24 10:26 Progress Note: Objective Labs Labs: Short CBC 08/12/24 Range/Units 04:42 WBC 10.5 (4.0-11.0) 10^3/uL Hgb 16.0 (14.0-18.0) g/dL Hct 53.2 (42.0-54.0) % Plt Count 272 (150-450) 10^3/uL BMP 08/11/24 08/12/24 14:08 04:42 Sodium 138 138 Potassium 4.6 4.4 Chloride 102 102 Carbon Dioxide 28.2 30.5 BUN 56.0 H 57.0 H Creatinine 1.95 H 1.77 H Glucose 175 H 171 H Calcium 8.6 8.2 L Liver Function 08/12/24 Range/Units 04:42 Total Bilirubin 0.9 (0.2-1.0) mg/dL AST 35 (15-37) U/L ALT 46 (16-63) U/L Alkaline Phosphatase 98 (46-116) U/L Albumin 2.6 L (3.4-5.0) g/dL Progress Note: A&P Assessment and Plan (1) Atrial flutter with rapid ventricular response: (2) Cardiomyopathy: Qualifiers: Cardiomyopathy type: unspecified Qualified Code(s): I42.9 - Cardiomyopathy, unspecified (3) Acute systolic heart failure: (4) Cellulitis of left leg: (5) Ulcer of left lower extremity, limited to breakdown of skin: (6) Sepsis: Qualifiers: Sepsis type: sepsis due to unspecified organism Sepsis acute organ dysfunction status: without acute organ dysfunction Qualified Code(s): A41.9 - Sepsis, unspecified organism (7) Acute on chronic respiratory failure with hypoxia: (8) Acute on chronic respiratory failure with hypercapnia: (9) Bilateral pneumonia: Qualifiers: Pneumonia type: due to unspecified organism Lung location: lower lobe of lung Qualified Code(s): J18.9 - Pneumonia, unspecified organism (10) KRISTINE (acute kidney injury): (11) Type 2 diabetes mellitus with diabetic polyneuropathy: Qualifiers: Diabetes mellitus termite exterminator helper insulin use: without [place] [facility] use Qualified Code(s): E11.42 - Type 2 diabetes mellitus with diabetic polyne uropathy (12) MURALI (obstructive sleep apnea): (13) COPD (chronic obstructive pulmonary disease): Qualifiers: COPD type: unspecified COPD Qualified Code(s): J44.9 - Chronic obstructive pulmonary disease, unspecified (14) Morbid obesity: (15) Hyperkalemia: Plan Patient seen and evaluated. I did review plan with his nurse who helped remove his dressing. -May discontinue Santyl as wounds are granular -Recommended dressing change twice daily with foam (if available on the floor), kerlix in attempt to control drainage and maceration. Betadine should be used over the areas of the maceration and wound beds. No surgery planned at this time. Continue medical management. Call with updates Urinary Catheter Management Urinary Catheter Management Urethral: Cath placed during this visit: yes Urethral indwelling: Yes Reason for continuing: measure accurate output Insertion date: 08/10/24 Insertion time: 16:15
--- NOTE | 2024-08-12 13:37 | PC.NURSE ---
LLE dressing change completed per order. LLE seeping very large amounts of serous drainage. wound beds red, no odor. edges macerated. LLE dark red, toes and bottom of foot dark dusky, very faint pulses. pt tolerated well, repositioned on to R side, LLE elevated on pillow.
--- NOTE | 2024-08-12 13:51 | SWNOTE1 ---
SW attempted to have a conversation with pt about discharge. Pt was falling asleep during conversation. SW did advise that at this time he is not safe to return home and SNF is recommended. Pt continue to say right right right. SW did explain that nto all facilities take his insurance. SW advised that [facility] and [facility] does take it. SW asked pt if he can recall what SW just said. Pt stated his [employer] is not taken everywhere and that he needs rehab. At this time pt has no preference. But, again, pt was falling asleep. SW to reach out to [facility] to see if they have openings. Pt is a smoker and he has been non compliant and had behaviors. SW to stop back in later today to see if pt is more awake.
--- NOTE | 2024-08-12 14:55 | SWNOTE1 ---
Pt sleeping at this time. SW will re-assess tomorrow.
--- NOTE | 2024-08-12 15:27 | CM.NOTE ---
Discussed with pt Important Message From Medicare, pt verbalizes understanding and requests Case Management to sign for him. Paper signed and original placed at bedside and copy placed on chart.
--- NOTE | 2024-08-12 16:01 | SWNOTE1 ---
JOSÉ called and spoke to Ramona at [facility] in regards to pt. At this time they do not have any beds open.
[2024-08-12 16:22] LABS: Glucometer 172 mg/dL (74-106)
[2024-08-12 19:47] LABS: Vancomycin Trough 16.6 ug/mL (5.0-20.0)
--- NOTE | 2024-08-12 20:09 | PC.NURSE ---
Tele pharmacy called at 1955 to report vanco trough results. Results were 16.6. Per tele pharmacy OK to give 2000 dose.
[2024-08-12] MEDS: FUROSEMIDE 40 MG/4 ML VIAL IVP (20:18)
[2024-08-12] MEDS: VANCOMYCIN HCL 2,000 MG in 0.9 % SODIUM CHLORIDE 500 ML 250 MG IV (20:22)
[2024-08-12 21:07] LABS: Glucometer 336 mg/dL (74-106)
[2024-08-12] MEDS: INSULIN GLARGINE 300 UNIT/3 ML INSULN.PEN 25 UNIT SQ (21:30)
[2024-08-12] MEDS: MORPHINE SULFATE 2 MG/ML SYRINGE IV (22:38)
[2024-08-13] VITALS (34 sets, daily range): BP systolic 105–132; BP diastolic 62–92; PULSE 93–125; RESP 18; TEMP 36.1–37.4; O2SAT 82–99
[2024-08-13] MEDS: DIGOXIN 500 MCG/2 ML AMPUL 125 MCG IV (01:45)
[2024-08-13] MEDS: HALOPERIDOL LACTATE 5 MG/ML VIAL IV ×2 (03:35→08:23)
--- NOTE | 2024-08-13 03:48 | PC.NURSE ---
Pt became aggitated at 0326. Pt had taken BiPAP off refusing to put O2 on. Pt was insisting to get out of bed and pulling at the panel monitor and IV. Pt had taken SpO2 monitor probe off and will not allow staff to put it back on. Unclear as to what his SpO2 was at this time. [facility] [employer] Cristhian HERNANDEZ called at 0327. Trupti Packer NP called at 0328 d/t pt not being redirectable and attempting to hit staff and becoming increasingly agitated and aggressive. Trupti MUNIZ gave this RN orders. Please see eMAR for medication administration. Pt currently on Vapotherm lying on his right side with an SpO2 of 95-96% on 100% FiO2. RT informed.
[2024-08-13] MEDS: IPRATROPIUM/ALBUTEROL SULFATE 3 ML AMPUL.NEB IH ×4 (04:01→20:35)
[2024-08-13] MEDS: DIPHENHYDRAMINE HCL 50 MG/ML VIAL 25 MG IV (05:00)
[2024-08-13] MEDS: LORAZEPAM 2 MG/ML VIAL 1 MG IV ×2 (05:00→10:20)
[2024-08-13] MEDS: PIPERACILLIN SODIUM/TAZOBACTAM 3.375 GM in 0.9 % SODIUM CHLORIDE 50 ML IV ×3 (05:27→21:50)
--- NOTE | 2024-08-13 05:31 | PC.NURSE ---
Pt became agitated and restless at 0450. Took O2 off and refused to allow staff to put O2 on. Pt refused to allow staff to place SpO2 probe on him. Unclear what his SpO2 is at this time. Pt attempting to roll out of bed and attempting to hit staff. Hospital supervisor frame sample and pattern called at 0452 as well as Trupti Packer NP for assistance. Trupti Packer NP gave RN orders. Please see eMAR for medication administration. Pt was off O2 for approximately 10 minutes. Pt now back on Vapotherm 40L 100% with an SpO2 of 94%. RT informed.
[2024-08-13 06:27] LABS: Hematocrit 52.8 % (42.0-54.0); Hemoglobin 15.7 g/dL (14.0-18.0); Mean Corpuscular HGB Conc 29.7 g/dL (29.9-35.2); Mean Corpuscular Hemoglobin 29.2 pg (25.9-34.0); Mean Corpuscular Volume 98.1 fL (80.0-94.0); Mean Platelet Volume 10.7 fL (9.5-13.5); Platelet Count 239 10^3/uL (150-450); Red Blood Count 5.38 10^6/uL (4.70-6.10); Red Cell Distribution Width 15.9 % (11.0-15.0)
--- NOTE | 2024-08-13 07:09 | RESP.RT ---
Patient had ripped off vapotherm nc and SpO2 dropped to 82%. Placed back on 100%/40lpm vapotherm
[2024-08-13 07:50] LABS: Alanine Aminotransferase 46 U/L (16-63); Albumin Globulin Ratio 0.6; Albumin Level 2.4 g/dL (3.4-5.0); Alkaline Phosphatase 97 U/L (46-116); Anion Gap 7.2; Aspartate Amino Transferase 37 U/L (15-37); BUN Creatinine Ratio 31.5; Bilirubin Total 0.6 mg/dL (0.2-1.0); Carbon Dioxide 32.2 mmol/L (21.0-32.0); Chloride 103 mmol/L (98-107); Estimated GFR (African America 51 (>=60 mL/min/1.73m^2); Estimated GFR (Non-African Ame 42 (>=60 mL/min/1.73m^2); Globulin 4.1 g/dL; Glucose 202 mg/dL (74-106); Potassium 4.4 mmol/L (3.5-5.1); Sodium 138 mmol/L (136-145); Total Protein 6.5 g/dL (6.4-8.2)
[2024-08-13 07:58] LABS: pH VBG 7.206 (7.330-7.430)
[2024-08-13 08:00] LABS: PCO2 VBG 76.6 mmHg (40.0-52.0)
[2024-08-13 08:05] LABS: Hypochromasia 1+
[2024-08-13] MEDS: FUROSEMIDE 40 MG/4 ML VIAL IVP (09:30)
[2024-08-13] MEDS: COLLAGENASE CLOSTRIDIUM HIST. 250 UNITS/GM 30 GRAM TUBE 1 APPLIC TOPICAL (09:31)
[2024-08-13 09:38] LABS: Glucometer 162 mg/dL (74-106)
--- NOTE | 2024-08-13 10:13 | CM.NOTE ---
Rounds made with Dr. Villareal. Mr. Mckinney lethargic. No discharge today.
[2024-08-13] MEDS: METHYLPREDNISOLONE SOD SUCC PF 40 MG/ML VIAL IVP ×2 (10:20→19:17)
[2024-08-13] MEDS: FUROSEMIDE 40 MG/4 ML VIAL 80 MG IVP ×2 (10:20→21:29)
[2024-08-13] MEDS: MORPHINE SULFATE 2 MG/ML SYRINGE IV (10:21)
--- NOTE | 2024-08-13 10:37 | PT.DAILY ---
Physical Therapy Daily Note PT Daily Note/Assess Start: 08/12/24 08:30 Freq: Status: Active Protocol: Document 08/13/24 10:36 GEOVANNA (Rec: 08/13/24 10:37 GEOVANNA [id number]) Visit Not Completed Visit Not Completed Visit Not Completed Medical instability,Nursing request to hold Due to: Other Reason Visit Nursing (Chuck RN) requesting to hold pt on this date. Not Completed Physical Therapy Daily Note/Assessment Time In/Time Out Time In 10:14 Time Out 10:14 Pain In Pain N/A Pain Out Pain N/A GG. Functional Abilities and Goals-Complete for Swing Bed Patients Only [id number]. Self-Care [id number]. Mobility
--- NOTE | 2024-08-13 10:54 | PM.IMPN1 ---
Progress Note: A&P Assessment and Plan (1) Atrial flutter with rapid ventricular response: Assessment and Plan: Continues to have poorly controlled HR. On 150 mg of Toprol. His HR fluctuating from 100-130. Will add toprol 50 mg qhs. Also on IV digoxin for rate control. Eliquis for stroke px. (2) Cardiomyopathy: Assessment and Plan: New finding. Not previously known. Will need ischemic work up once medically stable. Qualifiers: Cardiomyopathy type: unspecified Qualified Code(s): I42.9 - Cardiomyopathy, unspecified (3) Acute systolic heart failure: Assessment and Plan: Sig volume overlaod on exam. Increase Lasix to 80 q12. Will receive 120 mg in the morning. Monitor I/O. (4) Cellulitis of left leg: Assessment and Plan: No abscess on CT. C/w IV abx. Staph aureus on wound culture. On IV vanc/zosyn. Mild improvement overall. (5) Ulcer of left lower extremity, limited to breakdown of skin: Assessment and Plan: Podiatry on board. On IV abx. Wound consult. (6) Sepsis: Assessment and Plan: On Lasix for CHF. on IV abx for Pneumonia/Cellulitis. Qualifiers: Sepsis type: sepsis due to unspecified organism Sepsis acute organ dysfunction status: without acute organ dysfunction Qualified Code(s): A41.9 - Sepsis, unspecified organism (7) Acute on chronic respiratory failure with hypoxia: Assessment and Plan: Currently on high flow. BIPAP as needed. Clinically worse today. Repeat CXR. Increased Lasix. (8) Acute on chronic respiratory failure with hypercapnia: Assessment and Plan: BIPAP at night or as needed. (9) Bilateral pneumonia: Assessment and Plan: on broad spectrum abx. Will treat as hospital acquired pneumonia due to recent abx use/hospital admission. Repeat CXR Qualifiers: Pneumonia type: due to unspecified organism Lung location: lower lobe of lung Qualified Code(s): J18.9 - Pneumonia, unspecified organism (10) KRISTINE (acute kidney injury): Assessment and Plan: Renal function gradually improving with Diuresis. Monitor closely. Need to c/w Diuresis. (11) Type 2 diabetes mellitus with diabetic polyneuropathy: Assessment and Plan: c/w basal/bolus insulin. Poorly controlled at baseline. FSBS at goal currently. Qualifiers: Diabetes mellitus termite inspector insulin use: without termite inspector use Qualified Code(s): E11.42 - Type 2 diabetes mellitus with diabetic polyneuropathy (12) MURALI (obstructive sleep apnea): Assessment and Plan: BIPAP at night. Will need outpatient f/u (13) COPD (chronic obstructive pulmonary disease): Assessment and Plan: Added solumedrol as noted to have wheezing. Patient also diminished lung sounds. Qualifiers: COPD type: unspecified COPD Qualified Code(s): J44.9 - Chronic obstructive pulmonary disease, unspecified (14) Morbid obesity: Assessment and Plan: Will benefit from weight loss. Defer to outpatient. (15) Hyperkalemia: Assessment and Plan: Resolved Internal Medicine - PN: Subj Subjective Interval history: Seen and examined. Overnight patient was confused, agitated and thrashing. He ripped off his BIPAP and IV He was given IV halidol, benadryl overnight to help him calm down so that he did not end up hurting himself or the nursing staff. He is calm and comfortable in the morning. On high flow - requiring 100% FiO2 which is considerably worse from yesterday when he was only on 60%. Exam Constitutional Vital Signs, click to edit/add: Last Vital Signs Temp 99.3 F 08/13/24 07:36 Pulse 125 H 08/13/24 07:36 Resp 20 08/13/24 07:36 BP 106/73 08/13/24 09:30 Pulse Ox 92 L 08/13/24 07:36 O2 Del Method Vapotherm 08/13/24 07:36 O2 Flow Rate 40 08/13/24 07:36 FiO2 100 08/13/24 07:36 General appearance: comfortable, lethargic and ill appearing Nutritional appearance: obese Other: Sedated/sleeping soundly. Respiratory Effort & inspection: tachypneic and labored Auscultation: rhonchi, wheezes expiratory wheezes and diminished lung sounds Cardio Common normals: S1 normal heart sound and S2 normal heart sound Rate: tachycardic Rhythm: abnormal rhythm GI Common normals: soft to palpation, non-tender and no hepatosplenomegaly Inspection: abdominal distension Other: abdominal wall edema noted Extremity Other: Right TMA LLE -erythema, induration, tenderness extending all the way from foot to just below knee. Superficial seeping wounds seen on exam, mild improvement from before. Neuro Common normals: moves all extremities, no focal motor deficits and no sensory deficits noted Sensorium/orientation: somnolent Other: Intermittent confusion/agitation but currently calm/comfortable. Internal Medicine - PN: Obj Da Labs Labs: Laboratory Results - last 24 hr 08/12/24 08/12/24 08/12/24 10:55 16:21 19:20 WBC RBC Hgb Hct MCV MCH MCHC RDW Plt Count MPV Seg Neuts % (Manual) Lymphocytes % (Manual) Monocytes % (Manual) Eosinophils % (Manual) Basophils % (Manual) Neutrophils # (Manual) Lymphocytes # (Manual) Monocytes # (Manual) Eosinophils # (Manual) Basophils # (Manual) Hypochromasia VBG pH VBG pCO2 Sodium Potassium Chloride Carbon Dioxide Anion Gap BUN Creatinine Est GFR ( Amer) Est GFR (Non-Af Amer) BUN/Creatinine Ratio Glucose Calcium Total Bilirubin AST ALT Alkaline Phosphatase Total Protein Albumin Globulin Albumin/Globulin Ratio Vancomycin Trough 16.6 POC Glucose 224 H 172 H 08/12/24 08/13/24 08/13/24 21:06 06:00 07:26 WBC 10.0 RBC 5.38 Hgb 15.7 Hct 52.8 MCV 98.1 H MCH 29.2 MCHC 29.7 L RDW 15.9 H Plt Count 239 MPV 10.7 Seg Neuts % (Manual) 77.0 H Lymphocytes % (Manual) 6.0 L Monocytes % (Manual) 17.0 H Eosinophils % (Manual) 0.0 L Basophils % (Manual) 0.0 L Neutrophils # (Manual) 7.70 H Lymphocytes # (Manual) 0.60 L Monocytes # (Manual) 1.70 H Eosinophils # (Manual) 0.00 Basophils # (Manual) 0.00 Hypochromasia 1+ VBG pH 7.206 L VBG pCO2 76.6 H* Sodium 138 Potassium 4.4 Chloride 103 Carbon Dioxide 32.2 H Anion Gap 7.2 BUN 52.0 H Creatinine 1.65 H Est GFR ( Amer) 51 L Est GFR (Non-Af Amer) 42 L BUN/Creatinine Ratio 31.5 Glucose 202 H Calcium 8.0 L Total Bilirubin 0.6 AST 37 ALT 46 Alkaline Phosphatase 97 Total Protein 6.5 Albumin 2.4 L Globulin 4.1 Albumin/Globulin Ratio 0.6 Vancomycin Trough POC Glucose 336 H 08/13/24 09:36 WBC RBC Hgb Hct MCV MCH MCHC RDW Plt Count MPV Seg Neuts % (Manual) Lymphocytes % (Manual) Monocytes % (Manual) Eosinophils % (Manual) Basophils % (Manual) Neutrophils # (Manual) Lymphocytes # (Manual) Monocytes # (Manual) Eosinophils # (Manual) Basophils # (Manual) Hypochromasia VBG pH VBG pCO2 Sodium Potassium Chloride Carbon Dioxide Anion Gap BUN Creatinine Est GFR ( Amer) Est GFR (Non-Af Amer) BUN/Creatinine Ratio Glucose Calcium Total Bilirubin AST ALT Alkaline Phosphatase Total Protein Albumin Globulin Albumin/Globulin Ratio Vancomycin Trough POC Glucose 162 H Urinary Catheter Management Urinary Catheter Management Urethral: Cath placed during this visit: yes Urethral indwelling: Yes Reason for continuing: measure accurate output Insertion date: 08/10/24 Insertion time: 16:15
--- NOTE | 2024-08-13 10:56 | OT.DAILY ---
Occupational Therapy Daily Note OT Inpatient Daily Visit Note Start: 08/09/24 16:30 Freq: Status: Active Protocol: Document 08/13/24 10:53 [id number] (Rec: 08/13/24 10:56 [id number] No Response) Visit Not Completed Visit Not Completed Visit Not Completed Nursing request to hold Due to: Other Reason Visit Nursing request to hold due to Pt status. Will attempt Not Completed at later time/date. OT Visit Details Time In/Time Out Time In 10:20 Time Out 10:22 GG. Functional Abilities and Goals-Complete for Swing Bed Patients Only [id number]. Self-Care [id number]. Mobility
[2024-08-13] MEDS: METOPROLOL TARTRATE 5 MG/5 ML VIAL IVP (11:39)
[2024-08-13 11:44] LABS: Glucometer 234 mg/dL (74-106)
[2024-08-13] MEDS: INSULIN ASPART 300 UNIT/3 ML PEN SUBQ ×2 (11:45→16:40)
--- NOTE | 2024-08-13 12:00 | XR_ITS ---
[address] [address] Patient Name: TYLER SMITH MRN: [id number] date: 1960 Sex: M Assigned Patient Location: ICU Current Patient Location: ICU Accession/Order Number: [id number] Exam Date: 08/13/2024 12:30 Report Date: 08/13/2024 12:49 At the request of: SHAIKH BANDAR Procedure: XR chest 1V EXAM: XR chest 1V HISTORY: Picc Placement COMPARISON: 08/12/2024 TECHNIQUE: AP FINDINGS: LUNGS: Lung bases are not visualized. Moderate infiltrate in the right lung with a basilar predominance VASCULATURE: Pulmonary vascular congestion PLEURA: No pneumothorax, effusion, or pleural thickening. CARDIAC: Suspected cardiomegaly MEDIASTINUM: No visible mass or adenopathy. BONES: No fracture or visible bone lesion. OTHER: Abnormal position of the right PICC catheter which takes 180 degree turn extending off the field of view distally XR/XR chest 1V IMPRESSION: Abnormal position of right PICC catheter, repositioning required Electronically authenticated by: PRESTON MILAN Date: 08/13/2024 12:49
--- NOTE | 2024-08-13 12:54 | XR_ITS ---
[address] [address] Patient Name: TYLER SMITH MRN: [id number] date: 1960 Sex: M Assigned Patient Location: ICU Current Patient Location: ICU Accession/Order Number: [id number] Exam Date: 08/13/2024 12:58 Report Date: 08/13/2024 13:12 At the request of: SHAIKH BANDAR Procedure: XR chest 1V EXAM: XR chest 1V HISTORY: Picc Placement COMPARISON: 08/13/2024 TECHNIQUE: Portable FINDINGS: LUNGS: Moderate right basilar infiltrate obscuring the right hemidiaphragm and right heart border VASCULATURE: Moderately increased pulmonary vasculature. PLEURA: No pneumothorax. Right pleural effusion CARDIAC: Moderate stable cardiomegaly. MEDIASTINUM: No visible mass or adenopathy. BONES: No fracture or visible bone lesion. OTHER: Left PICC catheter tip projects over the mid superior vena cava XR/XR chest 1V IMPRESSION: Normal position of the left PICC catheter Moderate right basilar infiltrate likely consolidation and pleural effusion Pulmonary vascular congestion, consider congestive heart failure Electronically authenticated by: PRESTON MILAN Date: 08/13/2024 13:12
[2024-08-13 15:35] LABS: Allen Test POSITIVE (POSITIVE); BIPAP Pressure 20/10; Base Excess ABG 4.8 mmol/L (-2.0-2.0); Fractionated Inspired Oxygen 100 %; HCO3 ABG 32.5 mmol/L (22.0-26.0); O2 Mode BIPAP; Oxygen Saturation ABG 93.2 %; Puncture Site RR
[2024-08-13 15:36] LABS: Minute Volume 7.2
[2024-08-13 15:37] LABS: ABG PCO2 80.4 mmHg (35.0-45.0); pH ABG 7.216 (7.350-7.450)
[2024-08-13 16:31] LABS: Glucometer 201 mg/dL (74-106)
[2024-08-13 17:48] LABS: Allen Test POSITIVE (POSITIVE); BIPAP Pressure 22/8; Base Excess ABG 4.3 mmol/L (-2.0-2.0); Fractionated Inspired Oxygen 100 %; O2 Mode BIPAP; Oxygen Saturation ABG 97.1 %; PO2 ABG 85.7 mmHg (80.0-100.0); Puncture Site RR
[2024-08-13 17:50] LABS: ABG PCO2 77.3 mmHg (35.0-45.0); pH ABG 7.225 (7.350-7.450)
[2024-08-13] MEDS: ETOMIDATE 20 MG/10 ML VIAL IVP (19:30)
[2024-08-13] MEDS: SUCCINYLCHOLINE CHLORIDE 200 MG/10 ML MDV 100 MG IV (19:33)
[2024-08-13] MEDS: KETAMINE HCL 500 MG/10 ML VIAL 200 MG IV (19:49)
[2024-08-13] MEDS: ONDANSETRON PF 4 MG/2 ML VIAL 8 MG IV (19:52)
[2024-08-13] MEDS: SUCCINYLCHOLINE CHLORIDE 200 MG/10 ML MDV 80 MG IV (19:53)
--- NOTE | 2024-08-13 19:58 | XR_ITS ---
The [address] [address] Patient Name: TYLER SMITH MRN: [id number] date: 1960 Sex: M Assigned Patient Location: ICU Current Patient Location: ICU Accession/Order Number: [id number] Exam Date: 08/13/2024 18:05 Report Date: 08/13/2024 22:09 At the request of: CRICKET SNOWDEN Procedure: XR chest 1V CHEST XRAY HISTORY: Chest pain COMPARISON: 08/13/2024 chest x-ray TECHNIQUE: 2 view chest is submitted for review. FINDINGS: Endotracheal tube in adequate position. Left-sided PICC line is seen with tip overlying the SVC. Lungs are adequately expanded with prominence of interstitial lung markings. The heart is enlarged. There is blunting of the right costophrenic angle. Pulmonary vascularity is unremarkable. Osseous structures are within expected limits for patients age. . XR/XR chest 1V IMPRESSION: Cardiomegaly with pulmonary edema Electronically authenticated by: MISHA TAPIA Date: 08/13/2024 22:09
--- NOTE | 2024-08-13 20:05 | RESP.RT ---
ET tube 24.5 @ the gum
[2024-08-13] MEDS: PROPOFOL 1,000 MG/100 ML VIAL 36 MG IV ×2 (20:15→23:25)
--- NOTE | 2024-08-13 20:49 | PC.NURSE ---
Handoff report from Priti Corrigan RN given to this RN at 190. Stated that the plan was for Dr. Jeffers to come and intubate pt d/t ABG results. Dr. Jeffers came to ICU @ 1924. Time out called at 1925. Dr. Jeffers ordered 20mg of Etomidate IVP and 100mg of Succinylcholine IVP. Crash cart placed outside the room in case of need. BiPap taken off pt at [address] Jeffers attempted intubation at [address] Quiñonez called at 1939 to assist with intubation. Dr. Quiñonez arrived at 1941. Dr. Quiñonez ordered Ketamine 200mg IVP, 8mg of Zofran IVP, and 80mg of Succinylcholine IVP. Dr. Quiñonez intubated pt at 1954 with a 7.0 size ET tube 24.5 at the gums with bilateral breath sounds and color change. CXR was ordered and obtained to confirm placement. Elvis Mata RN took over care at 1999. Dr. Villareal paged at [address] Jeffers's and Dr. Quiñonez's request for him to come and evaluate the pt. Dr. Villareal called back at 2001 and told this RN that he would be in but it would take him about an hour to get here. Dr. Villareal called at 2020 to inform staff he was on his way and to speak with RT about the vent and vent settings. Please see eMAR for all medications administered. All medications administered by Priti HERNANDEZ and Carmina HERNANDEZ from ED assisting with the intubation.
[2024-08-13 21:01] LABS: Allen Test POSITIVE (POSITIVE); Base Excess ABG 4.1 mmol/L (-2.0-2.0); Fractionated Inspired Oxygen 100 %; HCO3 ABG 31.1 mmol/L (22.0-26.0); O2 Mode VENTILATOR; Oxygen Saturation ABG 94.2 %; PO2 ABG 67.9 mmHg (80.0-100.0)
[2024-08-13 21:02] LABS: Pos End Expiratory Pressure 8; Puncture Site RT RADIAL; Rate 20; Tidal Volume 600; Vent Mode A/C
--- NOTE | 2024-08-13 21:04 | XR_ITS ---
[address] [address] Patient Name: TYLER SMITH MRN: [id number] date: 1960 Sex: M Assigned Patient Location: ICU Current Patient Location: ICU Accession/Order Number: [id number] Exam Date: 08/13/2024 21:07 Report Date: 08/13/2024 23:23 At the request of: SHAIKH BANDAR Procedure: XR chest 1V EXAMINATION: XR chest 1V HISTORY: OG tube placement COMPARISON: XR chest 08/13/2024 FINDINGS: LUNGS: Endotracheal tube with tip approximately 7.7 cm above the mauricio. Underexpanded lungs with moderate confluent opacities within lung bases obscuring the bronchovascular markings. VASCULATURE: No increased pulmonary vasculature. PLEURA: Small moderate right pleural effusion. No pneumothorax. CARDIAC: Grossly stable cardiomegaly. MEDIASTINUM: No visible mass or adenopathy. BONES: No fracture or visible bone lesion. OTHER: Left PICC line with tip in superior vena cava. Nasogastric tube extending below the level of imaging with tip likely in mid stomach. XR/XR chest 1V IMPRESSION: 1. 1. Stable endotracheal tube and left PICC line. 2. Moderate right basilar infiltrates and likely moderate size pleural effusion. Increased compared to prior study. 3. Nasogastric tube in adequate position. Electronically authenticated by: ARIC DODSON Date: 08/13/2024 23:23
[2024-08-13 21:06] LABS: ABG PCO2 68.7 mmHg (35.0-45.0); pH ABG 7.264 (7.350-7.450)
--- NOTE | 2024-08-13 21:14 | PC.NURSE ---
Patient intubated, sedated and mechanically ventilated at this time. Neuro assessment was done with sedation vacation.
--- NOTE | 2024-08-13 21:19 | ED_ITS ---
HPI HPI - General Adult General Chief complaint: Wound/Laceration Stated complaint: LOWER EXTREMITY PAINS Time Seen by Provider: 08/09/24 11:31 Source: patient Mode of arrival: Wheelchair Limitations: no limitations History of Present Illness HPI narrative: I was called up to the intensive care unit to assist in intubation to respiratory distress with hypoxic and hypercarbic patient. See MDM and progress note. Related Data Previous Rx's ?Medication ?Instructions ?Recorded glipizide 5 mg tablet 5 mg PO BID #60 tabs 03/30/24 insulin detemir U-100 100 unit/mL 30 unit (0.3 mL) subcut QPM 30 03/30/24 (3 mL) subcutaneous pen days #9 mL pen needle, diabetic 31 gauge x #50 ea 03/30/24 5/ vancomycin 1.5 gram/250 mL in 0.9 1.5 g (250 mL) IV Q12H 28 days 03/30/24 % sodium chloride intravenous Allergies Allergy/AdvReac Type Severity Reaction Status Date / Time No Known Drug Allergies Allergy Verified 08/09/24 11:31 Opioid HPI Opioid Management Most Recent Opioid Data: Last Pain Scale 8 08/13/24 15:00 08/13/24 Last Pain Intensity 8 08/09/24 16:12 08/09/24 Last Pain Assessment 08/13/24 22:00 Last MAR Pain Assessment 08/13/24 11:21 Last ORT Total Score 1 08/09/24 14:33 08/09/24 Last ORT Risk Category Low Risk 08/09/24 14:33 08/09/24 [facility] Medical History (Updated 08/11/24 @ 11:42 by Shaikh Mono MD) COPD (chronic obstructive pulmonary disease) ?J44.9 - Chronic obstructive pulmonary disease, unspecified (ICD-10) Morbid obesity ?E66.01 - Morbid (severe) obesity due to excess calories (ICD-10) Pneumonia ?J18.9 - Pneumonia, unspecified organism (ICD-10) Type 2 diabetes mellitus with diabetic polyneuropathy ?E11.42 - Type 2 diabetes mellitus with diabetic polyneuropathy (ICD-10) Acute osteomyelitis of right foot ?M86.171 - Other acute osteomyelitis, right ankle and foot (ICD-10) Abscess of right foot ?L02.611 - Cutaneous abscess of right foot (ICD-10) Cellulitis ?L03.90 - Cellulitis, unspecified (ICD-10) Edema, peripheral ?R60.0 - Localized edema (ICD-10) Upper respiratory infection ?J06.9 - Acute upper respiratory infection, unspecified (ICD-10) MURALI (obstructive sleep apnea) ?G47.33 - Obstructive sleep apnea (adult) (pediatric) (ICD-10) Smoker ?F17.200 - Nicotine dependence, unspecified, uncomplicated (ICD-10) Chronic respiratory failure with hypoxia ?J96.11 - Chronic respiratory failure with hypoxia (ICD-10) Dizziness ?R42 - Dizziness and giddiness (ICD-10) Diabetes ?E11.9 - Type 2 diabetes mellitus without complications (ICD-10) Surgical History H/O hernia repair ?Z98.890 - Other specified postprocedural states (ICD-10) ?Z87.19 - Personal history of other diseases of the digestive system (ICD-10) History of tonsillectomy ?Z90.89 - Acquired absence of other organs (ICD-10) History of appendectomy ?Z90.49 - Acquired absence of other specified parts of digestive tract (ICD- 10) Family History Grandfather Family history of CHF (congestive heart failure) Family history of diabetes mellitus Family history of hypertension Family history of myocardial infarction Family history of stroke Mother Family history of cancer Social History Within the past year, how often did you have a drink containing alcohol: never Score interpretation: A score less than 4 is consistent with normal alcohol consumption. 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 Highest level of school completed/degree received: GED or equivalent Are you now , , , , never or living with a partner: Little interest or pleasure in doing things: not at all Feeling down, depressed, or hopeless: not at all Feel stressed/tense/nervous/anxious/difficulty sleeping: not at all Exam Constitutional Vital Signs, click to edit/add: Last Vital Signs Temp 97.6 F 08/13/24 20:00 Pulse 100 H 01/24/25 22:00 Resp 20 08/13/24 20:00 BP 105/62 08/13/24 20:00 Pulse Ox 96 08/13/24 20:00 O2 Del Method Mechanical Ventilator 08/13/24 20:00 O2 Flow Rate 40 08/13/24 07:36 FiO2 100 08/13/24 20:00 Course Vital Signs Vital signs: Vital Signs Temperature 97.8 F 08/09/24 11:27 Pulse Rate 132 H 08/09/24 11:27 Respiratory Rate 24 H 08/09/24 11:27 Blood Pressure 128/86 08/09/24 11:27 Pulse Oximetry 83 L 08/09/24 11:27 Oxygen Delivery Method Room Air 08/09/24 11:27 Temperature 97.6 F 08/13/24 20:00 Pulse Rate 100 H 08/13/24 22:00 Respiratory Rate 20 08/13/24 20:00 Blood Pressure 105/62 08/13/24 20:00 Pulse Oximetry 96 08/13/24 20:00 Oxygen Delivery Method Mechanical Ventilator 08/13/24 20:00 Oxygen Delivery Flow Rate 40 08/13/24 07:36 Fraction of Inspired Oxygen 100 08/13/24 20:00 Medical Decision Making MDM Narrative Medical decision making narrative: I was called up to the intensive care unit to assist in intubation by Dr. Jeffers. Procedure note: Difficult intubation in the intensive care unit. Dr Villareal is the attending physician. Please refer to Dr. Jeffers procedures: And consultation note as well. I was called to bedside to assess with a difficult intubation. There was several attempts at intubation previously by Dr Jeffers, some mildbleeding had occurred secondary to patient's extremely dry tongue and mucous membranes intraoral. Patient's mouth was extremely dry. Patient had a large tongue. Patient had a short large neck. Dr. Jeffers attempted intubation, patient had esophageal intubation initially, ET tube was removed. Patient was previously given etomidate and succinylcholine. Patient's pH was 7.22, CO2 was elevated. Patient is failing BiPAP. Procedure note. Difficult intubation. procedure done by . intubation. patient was preoxygenated with [id number], patient maintained occupation in the mid 80s% saturation. A S4 glide scope blade was used. Patient's has minimal dentition, no dentures were in place.. A 7.0 ET tube was used. Respiratory staff had handed me a shorter ET tube, approximately 27cm in length. Not the standard ET tube that is approximate 29/30 cm that is typically used in the emergency room. The balloon was checked with 10 cc of air prior to used. There is no holes in the balloon. Patient was given 200 mg of ketamine to help with additional sedation and intubation. Patient blood pressure at the time of intubation was low normal. Vocal cords were visualized with using the glide scope, suction was done with mild amount of secretions and blood. A bougie was used for the first attempt of intubation. It was difficult to place the bougie through the vocal cords secondary to soft tissue swelling, visualization, anterior vocal cords position; along with patient's body habitus of his neck. The bougie was able to be placed. With bougie in place, and mild secretions and blood noted, along with patient's tongue being extremely dry. Patient was taking his own breaths every 8 to 10 seconds, 80 mg of succinylcholine was given along with 8 mg of Zofran. Zofran was given prophylactically to help prevent emesis and aspiration. Using the bougie as a transducer, a 7.0 ET tube placed over the bougie and was visualized passing into the cords with the glide scope. Cricoid pressure was held for approximately [address] Jeffers which allowed me to pass the bougie into the vocal cords, no emesis occurred. The ET tube was visualized passing through the vocal cords. The bougie was then removed with the ET tube in place past the cords. The S4 glide scope was then removed. Patient did have good color change on capnometer. Patient had equal breath sounds bilateral, good condensation in the ET tube. The ET tube was secured initially 27 cm at the gumline. Patient tolerated the procedure well without difficulty, no trauma was induced. Patient's minimal dentition remained intact. Postintubation chest x-ray was done, patient's ET tube is sitting just above the mauricio, approximately 1 cm to 2 cm. After the x- ray was noted, it was noted that the ET tube had slid down to approximately 28 at the gumline. The ET tube was brought back to initially try to have the ET tube at 26 cm at the gumline again. A second chest x-ray was shot, the ET tube was now noted to be at least 3 to 4 cm above the mauricio, and it was noted after the second x-ray was taken that the ET tube was at 24.5 at the gumline by Dr. Quiñonez. Dr. Jeffers and I both agree that the x-ray looks good, despite ET tube being slightly higher above the mauricio; we agreed to leave the ET tube in place at approximately 24.5-25 cm at the gumline. Patient had equal breath sounds. Good condensation. Good color change still on the capnometer. However patient was only oxygen satting in the 80s and it was not improving immediately. Patient continued to have increased respiratory rate with [id number] by myself, respiratory staff, and Dr. Jeffers. Inline suction will be done. Dr. Villareal had been called with request to see the patient and update him on the difficult airway and intubation. Dr. Jeffers had taken over with the resuscitation process after I had completed intubation. Patient was oxygen satting in the low 80s, no difficulty with using [id number] in the ET tube. No additional bleeding had occurred. I return back to the ER while Dr. Jeffers stayed to continue to assist with respiratory oxygenation. In reviewing the 2 x-rays that were done, patient had noted edema and probable infiltrate bilateral. No pneumothorax was noted to either x-ray postintubation. Please refer to Dr. Jeffers intubation and resuscitation consultation note as well. Excellent collaboration with Dr Jeffers and myself was done to help with severe respiratory distress and the need for intubation secondary to BiPAP was not improving the patient. Critical care time 45 minutes exclusive from separate billable procedures that were performed. The following was considered in the determination of critical care but not limited to the level of medical decision making, intensive cardiac and/or respiratory monitoring, frequent vital sign monitoring, evaluation of laboratory studies, evaluation of radiographic studies, oxygen monitoring, and constant monitoring and speaking to family at bedside Lab Data Labs: Lab Results 08/09/24 08/09/24 08/09/24 Range/Units 11:42 11:45 12:40 WBC 12.6 H (4.0-11.0) 10^3/uL RBC 5.90 (4.70-6.10) 10^6/uL Hgb 17.3 (14.0-18.0) g/dL Hct 56.4 H (42.0-54.0) % MCV 95.6 H (80.0-94.0) fL MCH 29.3 (25.9-34.0) pg MCHC 30.7 (29.9-35.2) g/dL RDW 15.2 H (11.0-15.0) % Plt Count 288 (150-450) 10^3/uL MPV 10.7 (9.5-13.5) fL Neut % (Auto) (43.0-75.0) % Lymph % (Auto) (20.5-60.0) % [place] % (Auto) (1.7-12.0) % Eos % (Auto) (0.9-7.0) % Baso % (Auto) (0.2-2.0) % Neut # (Auto) (1.4-6.5) 10^3/uL Lymph # (Auto) (1.2-3.8) 10^3/uL [place] # (Auto) (0.3-0.8) 10^3/uL Eos # (Auto) (0.0-0.7) 10^3/uL Baso # (Auto) (0.0-0.1) 10^3/uL Abs Immat Gran (auto) (0.00-0.03) 10^3/uL Seg Neuts % (Manual) 82.0 H (43.0-75.0) Lymphocytes % (Manual) 6.0 L (20.5-60.0) % Monocytes % (Manual) 12.0 (1.7-12.0) % Eosinophils % (Manual) 0.0 L (0.9-7.0) % Basophils % (Manual) 0.0 L (0.2-2.0) % Imm/Tot Granulo (auto) (0.0-0.5) % Neutrophils # (Manual) 10.33 H (1.4-6.5) 10^3/uL Lymphocytes # (Manual) 0.75 L (1.20-3.80) 10^3/uL Monocytes # (Manual) 1.51 H (0.30-0.80) 10^3/uL Eosinophils # (Manual) 0.00 (0.00-0.70) 10^3/uL Basophils # (Manual) 0.00 (0.00-0.10) 10^3/uL ESR 23 H (<=20) mm/hr PT 12.0 H (9.0-11.6) sec INR 1.15 Puncture Site ABG pH (7.350-7.450) ABG pCO2 (35.0-45.0) mmHg ABG pO2 (80.0-100.0) mmHg ABG HCO3 ABG O2 Saturation % ABG Base Excess Avinash Test (POSITIVE) VBG pH (7.330-7.430) VBG pCO2 (40.0-52.0) mmHg O2 Liters/Min Sodium 137 (136-145) mmol/L Potassium 5.0 (3.5-5.1) mmol/L Chloride 102 (98-107) mmol/L Carbon Dioxide 28.8 (21.0-32.0) mmol/L Anion Gap 11.2 BUN 38.0 H (7.0-18.0) mg/dL Creatinine 1.30 (0.70-1.30) mg/dL Est GFR ( Amer) >60 (>=60 mL/min/1.73m^2) Est GFR (Non-Af Amer) 55 L (>=60 mL/min/1.73m^2) BUN/Creatinine Ratio 29.2 Glucose 193 H (74-106) mg/dL Lactate 2.1 H (0.4-2.0) mmol/L Calcium 9.1 (8.5-10.1) mg/dL Total Bilirubin 1.2 H (0.2-1.0) mg/dL AST 39 H (15-37) U/L ALT 57 (16-63) U/L Alkaline Phosphatase 103 (46-116) U/L C-Reactive Protein 1.88 H (<=0.50) mg/dL NT-Pro-B Natriuret Pep (<=900.0) pg/mL Total Protein 7.0 (6.4-8.2) g/dL Albumin 3.1 L (3.4-5.0) g/dL Globulin 3.9 g/dL Albumin/Globulin Ratio 0.8 POC Glucose 179 H (74-106) mg/dL 08/09/24 08/09/24 08/09/24 Range/Units 14:54 20:48 22:58 WBC (4.0-11.0) 10^3/uL RBC (4.70-6.10) 10^6/uL Hgb (14.0-18.0) g/dL Hct (42.0-54.0) % MCV (80.0-94.0) fL MCH (25.9-34.0) pg MCHC (29.9-35.2) g/dL RDW (11.0-15.0) % Plt Count (150-450) 10^3/uL MPV (9.5-13.5) fL Neut % (Auto) (43.0-75.0) % Lymph % (Auto) (20.5-60.0) % [place] % (Auto) (1.7-12.0) % Eos % (Auto) (0.9-7.0) % Baso % (Auto) (0.2-2.0) % Neut # (Auto) (1.4-6.5) 10^3/uL Lymph # (Auto) (1.2-3.8) 10^3/uL [place] # (Auto) (0.3-0.8) 10^3/uL Eos # (Auto) (0.0-0.7) 10^3/uL Baso # (Auto) (0.0-0.1) 10^3/uL Abs Immat Gran (auto) (0.00-0.03) 10^3/uL Seg Neuts % (Manual) (43.0-75.0) Lymphocytes % (Manual) (20.5-60.0) % Monocytes % (Manual) (1.7-12.0) % Eosinophils % (Manual) (0.9-7.0) % Basophils % (Manual) (0.2-2.0) % Imm/Tot Granulo (auto) (0.0-0.5) % Neutrophils # (Manual) (1.4-6.5) 10^3/uL Lymphocytes # (Manual) (1.20-3.80) 10^3/uL Monocytes # (Manual) (0.30-0.80) 10^3/uL Eosinophils # (Manual) (0.00-0.70) 10^3/uL Basophils # (Manual) (0.00-0.10) 10^3/uL ESR (<=20) mm/hr PT (9.0-11.6) sec INR Puncture Site L radial ABG pH 7.111 L* (7.350-7.450) ABG pCO2 >98.3 H* (35.0-45.0) mmHg ABG pO2 48.6 L* (80.0-100.0) mmHg ABG HCO3 [employer] ABG O2 Saturation 77.2 % ABG Base Excess [employer] Avinash Test Positive (POSITIVE) VBG pH (7.330-7.430) VBG pCO2 (40.0-52.0) mmHg O2 Liters/Min 9 Sodium (136-145) mmol/L Potassium (3.5-5.1) mmol/L Chloride (98-107) mmol/L Carbon Dioxide (21.0-32.0) mmol/L Anion Gap BUN (7.0-18.0) mg/dL Creatinine (0.70-1.30) mg/dL Est GFR ( Amer) (>=60 mL/min/1.73m^2) Est GFR (Non-Af Amer) (>=60 mL/min/1.73m^2) BUN/Creatinine Ratio Glucose (74-106) mg/dL Lactate 0.7 (0.4-2.0) mmol/L Calcium (8.5-10.1) mg/dL Total Bilirubin (0.2-1.0) mg/dL AST (15-37) U/L ALT (16-63) U/L Alkaline Phosphatase (46-116) U/L C-Reactive Protein (<=0.50) mg/dL NT-Pro-B Natriuret Pep (<=900.0) pg/mL Total Protein (6.4-8.2) g/dL Albumin (3.4-5.0) g/dL Globulin g/dL Albumin/Globulin Ratio POC Glucose 188 H (74-106) mg/dL 08/09/24 08/10/24 Range/Units 23:52 05:24 WBC 14.2 H (4.0-11.0) 10^3/uL RBC 5.46 (4.70-6.10) 10^6/uL Hgb 16.0 (14.0-18.0) g/dL Hct 53.3 (42.0-54.0) % MCV 97.6 H (80.0-94.0) fL MCH 29.3 (25.9-34.0) pg MCHC 30.0 (29.9-35.2) g/dL RDW 15.5 H (11.0-15.0) % Plt Count 235 (150-450) 10^3/uL MPV 11.4 (9.5-13.5) fL Neut % (Auto) 74.4 (43.0-75.0) % Lymph % (Auto) 7.9 L (20.5-60.0) % [place] % (Auto) 16.2 H (1.7-12.0) % Eos % (Auto) 0.6 L (0.9-7.0) % Baso % (Auto) 0.4 (0.2-2.0) % Neut # (Auto) 10.6 H (1.4-6.5) 10^3/uL Lymph # (Auto) 1.1 L (1.2-3.8) 10^3/uL [place] # (Auto) 2.3 H (0.3-0.8) 10^3/uL Eos # (Auto) 0.1 (0.0-0.7) 10^3/uL Baso # (Auto) 0.1 (0.0-0.1) 10^3/uL Abs Immat Gran (auto) 0.07 H (0.00-0.03) 10^3/uL Seg Neuts % (Manual) (43.0-75.0) Lymphocytes % (Manual) (20.5-60.0) % Monocytes % (Manual) (1.7-12.0) % Eosinophils % (Manual) (0.9-7.0) % Basophils % (Manual) (0.2-2.0) % Imm/Tot Granulo (auto) 0.5 (0.0-0.5) % Neutrophils # (Manual) (1.4-6.5) 10^3/uL Lymphocytes # (Manual) (1.20-3.80) 10^3/uL Monocytes # (Manual) (0.30-0.80) 10^3/uL Eosinophils # (Manual) (0.00-0.70) 10^3/uL Basophils # (Manual) (0.00-0.10) 10^3/uL ESR (<=20) mm/hr PT (9.0-11.6) sec INR Puncture Site ABG pH (7.350-7.450) ABG pCO2 (35.0-45.0) mmHg ABG pO2 (80.0-100.0) mmHg ABG HCO3 ABG O2 Saturation % ABG Base Excess Avinash Test (POSITIVE) VBG pH 7.195 L 7.291 L (7.330-7.430) VBG pCO2 72.5 H* 59.4 H (40.0-52.0) mmHg O2 Liters/Min Sodium 138 (136-145) mmol/L Potassium 5.9 H (3.5-5.1) mmol/L Chloride 105 (98-107) mmol/L Carbon Dioxide 29.4 (21.0-32.0) mmol/L Anion Gap 9.5 BUN 42.0 H (7.0-18.0) mg/dL Creatinine 1.43 H (0.70-1.30) mg/dL Est GFR ( Amer) >60 (>=60 mL/min/1.73m^2) Est GFR (Non-Af Amer) 50 L (>=60 mL/min/1.73m^2) BUN/Creatinine Ratio 29.4 Glucose 207 H (74-106) mg/dL Lactate (0.4-2.0) mmol/L Calcium 8.7 (8.5-10.1) mg/dL Total Bilirubin 1.1 H (0.2-1.0) mg/dL AST 32 (15-37) U/L ALT 47 (16-63) U/L Alkaline Phosphatase 95 (46-116) U/L C-Reactive Protein (<=0.50) mg/dL NT-Pro-B Natriuret Pep 1354.0 H* (<=900.0) pg/mL Total Protein 5.9 L (6.4-8.2) g/dL Albumin 2.6 L (3.4-5.0) g/dL Globulin 3.3 g/dL Albumin/Globulin Ratio 0.8 POC Glucose (74-106) mg/dL Discharge Plan Discharge Chief Complaint: Wound/Laceration Clinical Impression: Cellulitis of left leg Patient Disposition: Admitted As Inpatient Time of Disposition Decision: 13:50 Discharge Date/Time: 08/09/24 14:08
[2024-08-13] MEDS: VANCOMYCIN HCL 2,000 MG in 0.9 % SODIUM CHLORIDE 500 ML 250 MG IV (21:30)
[2024-08-13] MEDS: PANTOPRAZOLE SODIUM 40 MG VIAL IV (21:30)
--- NOTE | 2024-08-13 21:30 | RESP.RT ---
Increased rate from [address] Villareal
[2024-08-13 21:51] LABS: Basophils Percent Auto 0.1 % (0.2-2.0); Hematocrit 51.2 % (42.0-54.0); Hemoglobin 15.2 g/dL (14.0-18.0); Immature Granulocytes Pct Auto 1.2 % (0.0-0.5); Lymphocytes Absolute Auto 0.2 10^3/uL (1.2-3.8); Lymphocytes Percent Auto 2.9 % (20.5-60.0); Mean Corpuscular HGB Conc 29.7 g/dL (29.9-35.2); Mean Corpuscular Volume 97.7 fL (80.0-94.0); Mean Platelet Volume 10.8 fL (9.5-13.5); Monocytes Absolute Auto 0.3 10^3/uL (0.3-0.8); Monocytes Percent Auto 3.2 % (1.7-12.0); Neutrophils Absolute Auto 7.8 10^3/uL (1.4-6.5); Neutrophils Percent Auto 92.6 % (43.0-75.0); Platelet Count 220 10^3/uL (150-450); Red Blood Count 5.24 10^6/uL (4.70-6.10); Red Cell Distribution Width 15.6 % (11.0-15.0); White Blood Count 8.4 10^3/uL (4.0-11.0)
[2024-08-13 22:07] LABS: Alanine Aminotransferase 41 U/L (16-63); Albumin Globulin Ratio 0.7; Albumin Level 2.5 g/dL (3.4-5.0); Alkaline Phosphatase 93 U/L (46-116); Anion Gap 6.6; Aspartate Amino Transferase 26 U/L (15-37); BUN Creatinine Ratio 33.3; Calcium 8.5 mg/dL (8.5-10.1); Carbon Dioxide 35.6 mmol/L (21.0-32.0); Chloride 102 mmol/L (98-107); Estimated GFR (African America 51 (>=60 mL/min/1.73m^2); Estimated GFR (Non-African Ame 42 (>=60 mL/min/1.73m^2); Globulin 3.6 g/dL; Glucose 192 mg/dL (74-106); Potassium 4.2 mmol/L (3.5-5.1); Sodium 140 mmol/L (136-145); Total Protein 6.1 g/dL (6.4-8.2)
[2024-08-13] MEDS: MIDAZOLAM HCL 100 MG in 0.9 % SODIUM CHLORIDE 80 ML IV (22:38)
[2024-08-13 22:53] LABS: Allen Test POSITIVE (POSITIVE); Base Excess ABG 5.3 mmol/L (-2.0-2.0); Fractionated Inspired Oxygen 100 %; HCO3 ABG 31.7 mmol/L (22.0-26.0); O2 Mode VENTILATOR; Oxygen Saturation ABG 94.7 %; PO2 ABG 68.8 mmHg (80.0-100.0); Puncture Site RT RADIAL
[2024-08-13 22:54] LABS: Pos End Expiratory Pressure 8; Rate 22; Tidal Volume 600; Vent Mode A/C
[2024-08-13 23:06] LABS: ABG PCO2 64.6 mmHg (35.0-45.0)
--- NOTE | 2024-08-13 23:10 | CT_ITS ---
The [address] [address] Patient Name: TYLER SMITH MRN: [id number] date: 1960 Sex: M Assigned Patient Location: ICU Current Patient Location: ICU Accession/Order Number: [id number] Exam Date: 08/13/2024 23:51 Report Date: 08/14/2024 00:11 At the request of: SHAIKH BANDAR Procedure: CT stroke head/brain wo con EXAM: CT stroke head/brain wo con HISTORY: Decreased pupillary response and tremors. COMPARISON: CT head from 08/17/2024. TECHNIQUE: Axial images of the brain were obtained from the skull base to the vertex without contrast enhancement. Sagittal and coronal reformations were provided. FINDINGS: No acute intracranial hemorrhage, extra-axial fluid collection, midline shift or mass effect is seen. No space-occupying lesion is demonstrated. There is no evidence of hydrocephalus or an acute ischemic event. Mucosal thickening is present within the visualized paranasal sinuses. A small amount of fluid is also seen within the right mastoid. CT/CT stroke head/brain wo con IMPRESSION: No CT evidence of an acute intracranial process. Electronically authenticated by: CRICKET PINEDA Date: 08/14/2024 00:11
[2024-08-14] VITALS (112 sets, daily range): BP systolic 103–152; BP diastolic 55–86; PULSE 79–113; TEMP 35.8–38.2; O2SAT 91–97
--- NOTE | 2024-08-14 00:06 | RESP.RT ---
ET Tube 24.5 at the gum
--- NOTE | 2024-08-14 00:14 | PC.NURSE ---
Patient traveled to CT for CT of head and brain with concern of new onset stroke. This RN, RN pump servicer supervisor Denita and RT Zulema all assisted with transport of patient. Patient had all attached and required safety monitors. Patient tolerated well, CT was obtained in a timely manner, and patient returns to room and repositioned by This RN.
[2024-08-14] MEDS: METHYLPREDNISOLONE SOD SUCC PF 40 MG/ML VIAL IVP ×3 (01:51→18:11)
[2024-08-14] MEDS: PROPOFOL 1,000 MG/100 ML VIAL 28.8 MG IV ×7 (01:51→22:54)
--- NOTE | 2024-08-14 03:57 | RESP.RT ---
ET Tube 24.5cm @ the gum line
[2024-08-14] MEDS: IPRATROPIUM/ALBUTEROL SULFATE 3 ML AMPUL.NEB IH ×4 (04:02→20:10)
[2024-08-14] MEDS: PIPERACILLIN SODIUM/TAZOBACTAM 3.375 GM in 0.9 % SODIUM CHLORIDE 50 ML IV ×3 (05:13→21:24)
[2024-08-14 05:57] LABS: Basophils Percent Auto 0.2 % (0.2-2.0); Hematocrit 47.8 % (42.0-54.0); Hemoglobin 14.6 g/dL (14.0-18.0); Immature Granulocytes Abs Auto 0.05 10^3/uL (0.00-0.03); Immature Granulocytes Pct Auto 0.8 % (0.0-0.5); Lymphocytes Absolute Auto 0.3 10^3/uL (1.2-3.8); Lymphocytes Percent Auto 4.1 % (20.5-60.0); Mean Corpuscular HGB Conc 30.5 g/dL (29.9-35.2); Mean Corpuscular Volume 94.8 fL (80.0-94.0); Mean Platelet Volume 10.8 fL (9.5-13.5); Monocytes Absolute Auto 0.4 10^3/uL (0.3-0.8); Monocytes Percent Auto 5.8 % (1.7-12.0); Neutrophils Absolute Auto 5.7 10^3/uL (1.4-6.5); Neutrophils Percent Auto 89.1 % (43.0-75.0); Platelet Count 211 10^3/uL (150-450); Red Blood Count 5.04 10^6/uL (4.70-6.10); Red Cell Distribution Width 15.5 % (11.0-15.0); White Blood Count 6.4 10^3/uL (4.0-11.0)
--- NOTE | 2024-08-14 06:00 | XR_ITS ---
[address] [address] Patient Name: TYLER SMITH MRN: [id number] date: 1960 Sex: M Assigned Patient Location: ICU Current Patient Location: ICU Accession/Order Number: [id number] Exam Date: 08/14/2024 05:49 Report Date: 08/14/2024 08:19 At the request of: SHAIKH BANDAR Procedure: XR chest 1V Exam: Radiographs: XR chest 1V Reason for exam: CHF Comparison: Chest x-ray from yesterday XR/XR chest 1V IMPRESSION: Atelectasis and/or fluid in the lower lungs bilaterally. Small bilateral pleural effusions. Pulmonary venous hypertension. ETT with tip in the midthoracic trachea. NG tube tip is below the diaphragm. Left PICC with tip in the low SVC. Remainder unremarkable. Electronically authenticated by: JAZMÍN NAQVI Date: 08/14/2024 08:19
[2024-08-14 06:15] LABS: Alanine Aminotransferase 39 U/L (16-63); Albumin Globulin Ratio 0.7; Albumin Level 2.4 g/dL (3.4-5.0); Alkaline Phosphatase 82 U/L (46-116); Anion Gap 9.5; Aspartate Amino Transferase 24 U/L (15-37); BUN Creatinine Ratio 32.9; Bilirubin Total 1.1 mg/dL (0.2-1.0); Calcium 8.6 mg/dL (8.5-10.1); Carbon Dioxide 32.4 mmol/L (21.0-32.0); Chloride 102 mmol/L (98-107); Estimated GFR (African America 51 (>=60 mL/min/1.73m^2); Estimated GFR (Non-African Ame 42 (>=60 mL/min/1.73m^2); Globulin 3.4 g/dL; Glucose 194 mg/dL (74-106); Potassium 3.9 mmol/L (3.5-5.1); Sodium 140 mmol/L (136-145); Total Protein 5.8 g/dL (6.4-8.2)
[2024-08-14] MEDS: FUROSEMIDE 40 MG/4 ML VIAL 80 MG IVP ×2 (08:14→20:32)
[2024-08-14 08:41] LABS: ABG PCO2 48.3 mmHg (35.0-45.0); pH ABG 7.413 (7.350-7.450)
[2024-08-14 08:42] LABS: Allen Test POSITIVE (POSITIVE); Base Excess ABG 6.2 mmol/L (-2.0-2.0); Fractionated Inspired Oxygen 100 %; HCO3 ABG 30.8 mmol/L (22.0-26.0); O2 Mode VENT; Oxygen Saturation ABG 93.3 %; Puncture Site RIGHT RADIAL; Rate 22; Tidal Volume 600; Vent Mode AC
--- NOTE | 2024-08-14 09:55 | REH.PTDLY ---
Physical Therapy Daily Note PT Daily Note/Assess Start: 08/12/24 08:30 Freq: Status: Active Protocol: Document 08/14/24 09:54 [facility] (Rec: 08/14/24 09:55 [facility] [id number]) Visit Not Completed Visit Not Completed Nursing request to hold Due to: Other Reason Visit Spoke with DAVID Hollis. Pt is now intubated, holding PT Not Completed today. Physical Therapy Daily Note/Assessment Time In 09:53 Time Out 09:54
[2024-08-14 11:00] LABS: Glucometer 198 mg/dL (74-106)
[2024-08-14] MEDS: METOPROLOL TARTRATE 100 MG TABLET PO ×2 (11:00→20:32)
--- NOTE | 2024-08-14 12:57 | ED_ITS ---
HPI HPI - General Adult General Chief complaint: Wound/Laceration Stated complaint: LOWER EXTREMITY PAINS Time Seen by Provider: 08/09/24 11:31 Source: patient Mode of arrival: Wheelchair Limitations: no limitations History of Present Illness HPI narrative: Dr. Tay called me after 6pm during my shift in the emergency department and asked me to go upstairs in order to intubate this patient. He told me that the patient has COPD, CHF and was on BiPap but not imprving and his mental status had started to decline. ABG revealed pH 7.22 with paCO2 77.3. AT the time, I was transferring an acute appendicitis pt to [facility] and had anesthetized a complex hand lac that needed to be sutured - but had not started the suturing yet. he told me that for now the patient was stable but he was concerned about deterioration. At 7pm, Dr Quiñonez arrived to start his security shift supervisor in the ED. I gave him sign out for my ED patients and left him know what I knew about Mr Mckinney and went to the ICU with ED nurse Carmina Grier at 715pm. On arrival, I found the patient laying in bed with BiPap. He was not awake enough to answer my questions. Related Data Previous Rx's ?Medication ?Instructions ?Recorded glipizide 5 mg tablet 5 mg PO BID #60 tabs 03/30/24 insulin detemir U-100 100 unit/mL 30 unit (0.3 mL) subcut QPM 30 03/30/24 (3 mL) subcutaneous pen days #9 mL pen needle, diabetic 31 gauge x #50 ea 03/30/24 5/16 vancomycin 1.5 gram/250 mL in 0.9 1.5 g (250 mL) IV Q12H 28 days 03/30/24 % sodium chloride intravenous Allergies Allergy/AdvReac Type Severity Reaction Status Date / Time No Known Drug Allergies Allergy Verified 08/09/24 11:31 Opioid HPI Opioid Management Most Recent Opioid Data: Last Pain Scale 8 08/13/24 15:00 08/13/24 Last Pain Intensity 8 08/09/24 16:12 08/09/24 Last Pain Assessment 08/14/24 13:00 Last MAR Pain Assessment 08/13/24 11:21 Last ORT Total Score 1 08/09/24 14:33 08/09/24 Last ORT Risk Category Low Risk 08/09/24 14:33 08/09/24 [facility] Medical History (Updated 08/14/24 @ 13:32 by Agustín Jeffers) COPD (chronic obstructive pulmonary disease) ?J44.9 - Chronic obstructive pulmonary disease, unspecified (ICD-10) Morbid obesity ?E66.01 - Morbid (severe) obesity due to excess calories (ICD-10) Pneumonia ?J18.9 - Pneumonia, unspecified organism (ICD-10) Type 2 diabetes mellitus with diabetic polyneuropathy ?E11.42 - Type 2 diabetes mellitus with diabetic polyneuropathy (ICD-10) Acute osteomyelitis of right foot ?M86.171 - Other acute osteomyelitis, right ankle and foot (ICD-10) Abscess of right foot ?L02.611 - Cutaneous abscess of right foot (ICD-10) Cellulitis ?L03.90 - Cellulitis, unspecified (ICD-10) Edema, peripheral ?R60.0 - Localized edema (ICD-10) Upper respiratory infection ?J06.9 - Acute upper respiratory infection, unspecified (ICD-10) MURALI (obstructive sleep apnea) ?G47.33 - Obstructive sleep apnea (adult) (pediatric) (ICD-10) Smoker ?F17.200 - Nicotine dependence, unspecified, uncomplicated (ICD-10) Chronic respiratory failure with hypoxia ?J96.11 - Chronic respiratory failure with hypoxia (ICD-10) Dizziness ?R42 - Dizziness and giddiness (ICD-10) Diabetes ?E11.9 - Type 2 diabetes mellitus without complications (ICD-10) Surgical History H/O hernia repair ?Z98.890 - Other specified postprocedural states (ICD-10) ?Z87.19 - Personal history of other diseases of the digestive system (ICD-10) History of tonsillectomy ?Z90.89 - Acquired absence of other organs (ICD-10) History of appendectomy ?Z90.49 - Acquired absence of other specified parts of digestive tract (ICD- 10) Family History Grandfather Family history of CHF (congestive heart failure) Family history of diabetes mellitus Family history of hypertension Family history of myocardial infarction Family history of stroke Mother Family history of cancer Social History Within the past year, how often did you have a drink containing alcohol: never Score interpretation: A score less than 4 is consistent with normal alcohol consumption. 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 At the time I assessed the patient, heart rate 118, blood pressure 125/74, O2 sat 94% on BiPAP General: Morbidly obese male. Skin: Warm, dry, no pallor noted. Numerous areas of erythema and ecchymosis noted to his extremities and torso. He also has a partial amputation of the right foot with bandages secondary to cellulitis of the left foot. Numerous areas of skin scabbing are noted on the torso and extremities. I do not see any purpura or petechiae. Head: Normocephalic, atraumatic. Neck: Full neck Eye: EOMI when he opens them to painful stimuli. No scleral icterus. Ears, Nose, Mouth, and Throat: Oral mucosa is very dry -he was wearing a fullface BiPAP mask Cardiovascular: Tachycardia. Respiratory: Spontaneous respirations while on BiPAP. Mild tachypnea noted. Lungs with bibasilar rales and anterior rales and rhonchi Musculoskeletal: Partial amputation of the right foot with bandages secondary to cellulitis on the left foot. 2-3+ pitting bilateral lower extremity edema. Skin changes as detailed above GI: Morbidly obese. Abdomen is soft, non-distended. Normal bowel sounds. No tenderness to palpation. Neurological: Awakens to painful stimuli and sometimes opens eyes spontaneously but does not attempt to talk or answer questions. Does not respond to verbal stimuli. Constitutional Vital Signs, click to edit/add: Last Vital Signs Temp 99.2 F 08/14/24 10:44 Pulse 83 08/14/24 12:00 Resp 22 H 08/14/24 07:55 BP 123/66 08/14/24 11:15 Pulse Ox 96 08/14/24 11:15 O2 Del Method Mechanical Ventilator 08/14/24 10:47 O2 Flow Rate 40 08/13/24 07:36 FiO2 100 08/14/24 11:13 Course Vital Signs Vital signs: Vital Signs Temperature 97.8 F 08/09/24 11:27 Pulse Rate 132 H 08/09/24 11:27 Respiratory Rate 24 H 08/09/24 11:27 Blood Pressure 128/86 08/09/24 11:27 Pulse Oximetry 83 L 08/09/24 11:27 Oxygen Delivery Method Room Air 08/09/24 11:27 Temperature 99.2 F 08/14/24 10:44 Pulse Rate 83 08/14/24 12:00 Respiratory Rate 22 H 08/14/24 07:55 Blood Pressure 123/66 08/14/24 11:15 Pulse Oximetry 96 08/14/24 11:15 Oxygen Delivery Method Mechanical Ventilator 08/14/24 10:47 Oxygen Delivery Flow Rate 40 08/13/24 07:36 Fraction of Inspired Oxygen 100 08/14/24 11:13 Medical Decision Making MDM Narrative Medical decision making narrative: Patient with COPD, CHF, respiratory failure requiring BiPAP is now experiencing hypercapnia and its associated effects of decrease responsiveness. I was called to intubate this patient. I was informed that there was no [facility] sthesiology backup. After assessing the patient I noted a very small mouth with a large tongue and a lot of adipose tissue. Oral mucosa was very dry Endotracheal intubation -using a curved 4 oh blade, I took a look into the patient's mouth and was able to visualize the vocal cords quite anteriorly. The mouth was very dry so I removed the curved blade in order to lubricate a little bit for better passage not only of the blade itself but also decrease irritation of the patient's mouth. The skin was very friable and bled easily. I was able to visualize the cords on second insertion of the curved 4 blade and attempted to advance the 7.0 endotracheal tube past the patient's vocal cords. As I did so, the light went out on the curved blade. We did continue to advance the tube and the stylette was removed. On bagging it was apparent that the intubation had gone into the esophagus rather than appropriate placement. The tube was therefore removed. I tried again to visualize inside of the patient's mouth. We suctioned out some blood. The tissue was very friable. I had difficulty adequately visualizing the cords and on second attempt to pass endotracheal tube I could not pass through the portion of the cords that I could visualize. Despite using a stylette, I difficulty based on the size of the patient's mouth. At this point we placed BiPAP back on the patient in order to improve his O2 sats. I called down to the emergency department asked Dr. Quiñonez to come up to assist me. Dr. Graham came up and was able to successfully intubate the patient using the glide scope and a bougie in order to enter into the patient's vocal cords. He then passed the endotracheal tube over the bougie, which I held secured in place, and we were able to successfully inflate the balloon. However the endotracheal tube was shorter than normal, measuring 27 cm rather than the typical 31 cm that we would use for intubation. We did secure the endotracheal tube measuring 24-1/2 cm at the gumline. I bagged the patient while also helping respiratory therapist to secure the endotracheal tube placement. Together we suctioned both the endotracheal tube as well as the patient's mouth. No blood or debris was noted in the endotracheal tube after intubation. There was positive color change and we verified proper placement through auscultation of both lungs as well as chest x-ray, which showed good placement of the endotracheal tube. I then asked the nursing staff to give the patient 250 mL of normal saline, as his blood pressure had decreased. In addition I worked with the respiratory therapist to establish ventilator settings and adjust those based on the patient's response. ABG was also ordered. Dr. Lees was notified and I was told he was coming to the hospital to further evaluate this patient, possibly to transfer, but at a minimum to manage the patient's vent. I stayed in the ICU until 9 PM, verified that the patient's O2 sat increased from 80% after intubation to greater than 90% post intubation as well as improved blood pressure, decreased tachycardia and overall comfort of the patient after propofol was initiated. Lab Data Lab results reviewed: Yes I reviewed the patient's lab results Labs: Lab Results 08/09/24 08/09/24 08/09/24 Range/Units 11:42 11:45 12:40 WBC 12.6 H (4.0-11.0) 10^3/uL RBC 5.90 (4.70-6.10) 10^6/uL Hgb 17.3 (14.0-18.0) g/dL Hct 56.4 H (42.0-54.0) % MCV 95.6 H (80.0-94.0) fL MCH 29.3 (25.9-34.0) pg MCHC 30.7 (29.9-35.2) g/dL RDW 15.2 H (11.0-15.0) % Plt Count 288 (150-450) 10^3/uL MPV 10.7 (9.5-13.5) fL Neut % (Auto) (43.0-75.0) % Lymph % (Auto) (20.5-60.0) % [place] % (Auto) (1.7-12.0) % Eos % (Auto) (0.9-7.0) % Baso % (Auto) (0.2-2.0) % Neut # (Auto) (1.4-6.5) 10^3/uL Lymph # (Auto) (1.2-3.8) 10^3/uL [place] # (Auto) (0.3-0.8) 10^3/uL Eos # (Auto) (0.0-0.7) 10^3/uL Baso # (Auto) (0.0-0.1) 10^3/uL Abs Immat Gran (auto) (0.00-0.03) 10^3/uL Seg Neuts % (Manual) 82.0 H (43.0-75.0) Lymphocytes % (Manual) 6.0 L (20.5-60.0) % Monocytes % (Manual) 12.0 (1.7-12.0) % Eosinophils % (Manual) 0.0 L (0.9-7.0) % Basophils % (Manual) 0.0 L (0.2-2.0) % Imm/Tot Granulo (auto) (0.0-0.5) % Neutrophils # (Manual) 10.33 H (1.4-6.5) 10^3/uL Lymphocytes # (Manual) 0.75 L (1.20-3.80) 10^3/uL Monocytes # (Manual) 1.51 H (0.30-0.80) 10^3/uL Eosinophils # (Manual) 0.00 (0.00-0.70) 10^3/uL Basophils # (Manual) 0.00 (0.00-0.10) 10^3/uL ESR 23 H (<=20) mm/hr PT 12.0 H (9.0-11.6) sec INR 1.15 Puncture Site ABG pH (7.350-7.450) ABG pCO2 (35.0-45.0) mmHg ABG pO2 (80.0-100.0) mmHg ABG HCO3 ABG O2 Saturation % ABG Base Excess Avinash Test (POSITIVE) VBG pH (7.330-7.430) VBG pCO2 (40.0-52.0) mmHg O2 Liters/Min Sodium 137 (136-145) mmol/L Potassium 5.0 (3.5-5.1) mmol/L Chloride 102 (98-107) mmol/L Carbon Dioxide 28.8 (21.0-32.0) mmol/L Anion Gap 11.2 BUN 38.0 H (7.0-18.0) mg/dL Creatinine 1.30 (0.70-1.30) mg/dL Est GFR ( Amer) >60 (>=60 mL/min/1.73m^2) Est GFR (Non-Af Amer) 55 L (>=60 mL/min/1.73m^2) BUN/Creatinine Ratio 29.2 Glucose 193 H (74-106) mg/dL Lactate 2.1 H (0.4-2.0) mmol/L Calcium 9.1 (8.5-10.1) mg/dL Total Bilirubin 1.2 H (0.2-1.0) mg/dL AST 39 H (15-37) U/L ALT 57 (16-63) U/L Alkaline Phosphatase 103 (46-116) U/L C-Reactive Protein 1.88 H (<=0.50) mg/dL NT-Pro-B Natriuret Pep (<=900.0) pg/mL Total Protein 7.0 (6.4-8.2) g/dL Albumin 3.1 L (3.4-5.0) g/dL Globulin 3.9 g/dL Albumin/Globulin Ratio 0.8 POC Glucose 179 H (74-106) mg/dL 08/09/24 08/09/24 08/09/24 Range/Units 14:54 20:48 22:58 WBC (4.0-11.0) 10^3/uL RBC (4.70-6.10) 10^6/uL Hgb (14.0-18.0) g/dL Hct (42.0-54.0) % MCV (80.0-94.0) fL MCH (25.9-34.0) pg MCHC (29.9-35.2) g/dL RDW (11.0-15.0) % Plt Count (150-450) 10^3/uL MPV (9.5-13.5) fL Neut % (Auto) (43.0-75.0) % Lymph % (Auto) (20.5-60.0) % [place] % (Auto) (1.7-12.0) % Eos % (Auto) (0.9-7.0) % Baso % (Auto) (0.2-2.0) % Neut # (Auto) (1.4-6.5) 10^3/uL Lymph # (Auto) (1.2-3.8) 10^3/uL [place] # (Auto) (0.3-0.8) 10^3/uL Eos # (Auto) (0.0-0.7) 10^3/uL Baso # (Auto) (0.0-0.1) 10^3/uL Abs Immat Gran (auto) (0.00-0.03) 10^3/uL Seg Neuts % (Manual) (43.0-75.0) Lymphocytes % (Manual) (20.5-60.0) % Monocytes % (Manual) (1.7-12.0) % Eosinophils % (Manual) (0.9-7.0) % Basophils % (Manual) (0.2-2.0) % Imm/Tot Granulo (auto) (0.0-0.5) % Neutrophils # (Manual) (1.4-6.5) 10^3/uL Lymphocytes # (Manual) (1.20-3.80) 10^3/uL Monocytes # (Manual) (0.30-0.80) 10^3/uL Eosinophils # (Manual) (0.00-0.70) 10^3/uL Basophils # (Manual) (0.00-0.10) 10^3/uL ESR (<=20) mm/hr PT (9.0-11.6) sec INR Puncture Site L radial ABG pH 7.111 L* (7.350-7.450) ABG pCO2 >98.3 H* (35.0-45.0) mmHg ABG pO2 48.6 L* (80.0-100.0) mmHg ABG HCO3 Sign Writer Letterer Or Painter ABG O2 Saturation 77.2 % ABG Base Excess Sign Writer Letterer Or Painter Avinash Test Positive (POSITIVE) VBG pH (7.330-7.430) VBG pCO2 (40.0-52.0) mmHg O2 Liters/Min 9 Sodium (136-145) mmol/L Potassium (3.5-5.1) mmol/L Chloride (98-107) mmol/L Carbon Dioxide (21.0-32.0) mmol/L Anion Gap BUN (7.0-18.0) mg/dL Creatinine (0.70-1.30) mg/dL Est GFR ( Amer) (>=60 mL/min/1.73m^2) Est GFR (Non-Af Amer) (>=60 mL/min/1.73m^2) BUN/Creatinine Ratio Glucose (74-106) mg/dL Lactate 0.7 (0.4-2.0) mmol/L Calcium (8.5-10.1) mg/dL Total Bilirubin (0.2-1.0) mg/dL AST (15-37) U/L ALT (16-63) U/L Alkaline Phosphatase (46-116) U/L C-Reactive Protein (<=0.50) mg/dL NT-Pro-B Natriuret Pep (<=900.0) pg/mL Total Protein (6.4-8.2) g/dL Albumin (3.4-5.0) g/dL Globulin g/dL Albumin/Globulin Ratio POC Glucose 188 H (74-106) mg/dL 08/09/24 08/10/24 Range/Units 23:52 05:24 WBC 14.2 H (4.0-11.0) 10^3/uL RBC 5.46 (4.70-6.10) 10^6/uL Hgb 16.0 (14.0-18.0) g/dL Hct 53.3 (42.0-54.0) % MCV 97.6 H (80.0-94.0) fL MCH 29.3 (25.9-34.0) pg MCHC 30.0 (29.9-35.2) g/dL RDW 15.5 H (11.0-15.0) % Plt Count 235 (150-450) 10^3/uL MPV 11.4 (9.5-13.5) fL Neut % (Auto) 74.4 (43.0-75.0) % Lymph % (Auto) 7.9 L (20.5-60.0) % [place] % (Auto) 16.2 H (1.7-12.0) % Eos % (Auto) 0.6 L (0.9-7.0) % Baso % (Auto) 0.4 (0.2-2.0) % Neut # (Auto) 10.6 H (1.4-6.5) 10^3/uL Lymph # (Auto) 1.1 L (1.2-3.8) 10^3/uL [place] # (Auto) 2.3 H (0.3-0.8) 10^3/uL Eos # (Auto) 0.1 (0.0-0.7) 10^3/uL Baso # (Auto) 0.1 (0.0-0.1) 10^3/uL Abs Immat Gran (auto) 0.07 H (0.00-0.03) 10^3/uL Seg Neuts % (Manual) (43.0-75.0) Lymphocytes % (Manual) (20.5-60.0) % Monocytes % (Manual) (1.7-12.0) % Eosinophils % (Manual) (0.9-7.0) % Basophils % (Manual) (0.2-2.0) % Imm/Tot Granulo (auto) 0.5 (0.0-0.5) % Neutrophils # (Manual) (1.4-6.5) 10^3/uL Lymphocytes # (Manual) (1.20-3.80) 10^3/uL Monocytes # (Manual) (0.30-0.80) 10^3/uL Eosinophils # (Manual) (0.00-0.70) 10^3/uL Basophils # (Manual) (0.00-0.10) 10^3/uL ESR (<=20) mm/hr PT (9.0-11.6) sec INR Puncture Site ABG pH (7.350-7.450) ABG pCO2 (35.0-45.0) mmHg ABG pO2 (80.0-100.0) mmHg ABG HCO3 ABG O2 Saturation % ABG Base Excess Avinash Test (POSITIVE) VBG pH 7.195 L 7.291 L (7.330-7.430) VBG pCO2 72.5 H* 59.4 H (40.0-52.0) mmHg O2 Liters/Min Sodium 138 (136-145) mmol/L Potassium 5.9 H (3.5-5.1) mmol/L Chloride 105 (98-107) mmol/L Carbon Dioxide 29.4 (21.0-32.0) mmol/L Anion Gap 9.5 BUN 42.0 H (7.0-18.0) mg/dL Creatinine 1.43 H (0.70-1.30) mg/dL Est GFR ( Amer) >60 (>=60 mL/min/1.73m^2) Est GFR (Non-Af Amer) 50 L (>=60 mL/min/1.73m^2) BUN/Creatinine Ratio 29.4 Glucose 207 H (74-106) mg/dL Lactate (0.4-2.0) mmol/L Calcium 8.7 (8.5-10.1) mg/dL Total Bilirubin 1.1 H (0.2-1.0) mg/dL AST 32 (15-37) U/L ALT 47 (16-63) U/L Alkaline Phosphatase 95 (46-116) U/L C-Reactive Protein (<=0.50) mg/dL NT-Pro-B Natriuret Pep 1354.0 H* (<=900.0) pg/mL Total Protein 5.9 L (6.4-8.2) g/dL Albumin 2.6 L (3.4-5.0) g/dL Globulin 3.3 g/dL Albumin/Globulin Ratio 0.8 POC Glucose (74-106) mg/dL Imaging Data Chest x-ray: Attestation: I have reviewed the pertinent imaging results. Radiologist's impression: ITS Impressions Foot X-Ray 08/09/24 11:41 IMPRESSION: 1. No acute fracture or malalignment. 2. No periosteal reaction or bone destruction. 3. Mild first metatarsal phalangeal joint osteoarthritis. 4. Tiny plantar enthesophyte. 5. Forefoot soft tissue swelling. Electronically authenticated by: TESS JIMENEZ Date: 08/09/2024 12:25 Tibia/Fibula X-Ray 08/09/24 11:41 IMPRESSION: 1. No acute fracture or malalignment. 2. No periosteal reaction or bone destruction. Electronically authenticated by: TESS JIMENEZ Date: 08/09/2024 12:23 Chest X-Ray 08/09/24 14:54 IMPRESSION: Suspect small right pleural effusion and dense mild bibasilar infiltrates versus atelectasis; increased compared to prior study. Electronically authenticated by: ARIC DODSON Date: 08/09/2024 20:35 Venous Doppler Study 08/09/24 14:56 IMPRESSION: The study is technically limited. There is no direct or indirect evidence of deep vein thrombosis in the lower extremity at this time. Similar findings were noted in the prior study from 03/24/2024. Electronically authenticated by: CURT GOMEZ Date: 08/09/2024 19:[address] 08/09/24 21:04 IMPRESSION: Within the limitations of significant motion artifact, no discrete acute intracranial abnormality identified. If there is sufficient clinical concern for acute infarct, consider MRI for further evaluation. Electronically authenticated by: [facility] Date: 08/09/2024 22:40 Critical Care Time Critical Care Time Critical Care Time: Yes Total Critical Care Time: 90 Attestation: Critical Care Time: 90 minutes, critical care time is separate from any procedures that are performed. The following was considered in the determination of critical care but not limited to the level medical decision-making, intensive cardiac and/or respiratory monitor, frequent vital sign monitoring, evaluation of laboratory studies, evaluation of a radiographic studies, oxygen monitoring and constant monitoring. This does not include time attempting intubation but it does include time during which I helped to secure the endotracheal tube, manage the vent and assess the patient both pre and post intubation as well as verifying that the patient's vital signs were improving prior to departing from the ICU Discharge Plan Discharge Chief Complaint: Wound/Laceration Clinical Impression: Acute on chronic respiratory failure with hypercapnia, Acute on chronic respiratory failure with hypoxia, Difficult intubation, Encounter for intubation Patient Disposition: Admitted As Inpatient Time of Disposition Decision: 13:50 Discharge Date/Time: 08/09/24 14:08
--- NOTE | 2024-08-14 13:38 | PM.IMPN1 ---
Progress Note: A&P Assessment and Plan (1) Acute on chronic respiratory failure with hypercapnia: Assessment and Plan: Failed to improve on BIPAP and intubated last evening. On Mechanical Ventilator - 600/8/22/100% ABG this am - acceptable gas exchange. No changes made to ventilator. (2) Acute on chronic respiratory failure with hypoxia: Assessment and Plan: Failed to improve on BIPAP. Intubated last evening and now on Ventilator. Acceptable gas exchange. (3) Sepsis: Assessment and Plan: On Lasix for CHF. on IV abx for Pneumonia/Cellulitis. Qualifiers: Sepsis type: methicillin resistant Staphylococcus aureus Sepsis acute organ dysfunction status: with acute organ dysfunction Severe sepsis acute organ dysfunction type: acute respiratory failure Acute respiratory failure type: with hypercapnia Severe sepsis shock status: without septic shock Qualified Code(s): A41.02 - Sepsis due to Methicillin resistant Staphylococcus aureus; R65.20 - Severe sepsis without septic shock; J96.02 - Acute respiratory failure with hypercapnia (4) Atrial flutter with rapid ventricular response: Assessment and Plan: HR improved now on Lopressor 100 q12. Can't use Toprol as he is intubated and Toprol can't be crushed. On Eliquis for stroke px. (5) Cardiomyopathy: Assessment and Plan: New finding. Not previously known. Will need ischemic work up once medically stable. Qualifiers: Cardiomyopathy type: unspecified Qualified Code(s): I42.9 - Cardiomyopathy, unspecified (6) Acute systolic heart failure: Assessment and Plan: Sig volume overlaod on exam. c/w Lasix 80 q12. Monitor I/O, daily weight. (7) Cellulitis of left leg: Assessment and Plan: No abscess on CT. C/w IV abx. MRSA on wound culture. On IV vanc/zosyn. Mild improvement overall. (8) Ulcer of left lower extremity, limited to breakdown of skin: Assessment and Plan: Podiatry on board. On IV abx. Wound consult. (9) Bilateral pneumonia: Assessment and Plan: on broad spectrum abx. Will treat as hospital acquired pneumonia due to recent abx use/hospital admission. Qualifiers: Pneumonia type: due to unspecified organism Lung location: lower lobe of lung Qualified Code(s): J18.9 - Pneumonia, unspecified organism (10) KRISTINE (acute kidney injury): Assessment and Plan: Renal function gradually improving with Diuresis. Monitor closely. Need to c/w Diuresis. Cr 1.6 today Normal renal function at baseline. (11) Type 2 diabetes mellitus with diabetic polyneuropathy: Assessment and Plan: c/w basal/bolus insulin. Poorly controlled at baseline. FSBS at goal currently. 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 Will need outpatient f/u (13) COPD (chronic obstructive pulmonary disease): Assessment and Plan: Patient diminished lung sounds. No wheezing today. C/w solumedrol, duonebs. Qualifiers: COPD type: unspecified COPD Qualified Code(s): J44.9 - Chronic obstructive pulmonary disease, unspecified (14) Morbid obesity: Assessment and Plan: Will benefit from weight loss. Defer to outpatient. (15) Hyperkalemia: Assessment and Plan: Resolved Plan Critical Care Time spent over 60 minutes in patient's evaluation, assessment, formulation of treatment plan, co ordination of care. Case d/w RT, RN. Case d/w with ICU team at [facility] - will need to transfer as starting from Friday, oncoming hospitalist provider does not have vent privileges Internal Medicine - PN: Subj Subjective Interval history: Seen and examined. Last evening, patient was intubated after failing to improve on BIPAP. He had a very difficult intubation and required bagging for hypoxia post intubation. Gas exchange on ABG today is acceptable. On versed/propofol for sedation. Exam Constitutional Vital Signs, click to edit/add: Last Vital Signs Temp 99.2 F 08/14/24 10:44 Pulse 83 08/14/24 13:00 Resp 22 H 08/14/24 07:55 BP 117/65 08/14/24 13:00 Pulse Ox 94 L 08/14/24 13:00 O2 Del Method Mechanical Ventilator 08/14/24 10:47 O2 Flow Rate 40 08/13/24 07:36 FiO2 100 08/14/24 11:13 General appearance: comfortable Other: Sedated/on ventilator HENMT Common normals: normocephalic and head/scalp atraumatic Eye Other: Pupils unequal. Left pupil pinpoint, right pupil 6 mm Respiratory Other: Diminished lung sounds. Crackles at lung bases. Breathing with vent. On ventilator. No wheezing. Cardio Common normals: regular rate, S1 normal heart sound and S2 normal heart sound Rhythm: abnormal rhythm GI Common normals: soft to palpation and non-tender Other: distended abdomen Extremity Other: Right TMA LLE -erythema, induration, tenderness extending all the way from foot to just below knee. Superficial seeping wounds seen on exam, mild improvement from before. Neuro Common normals: moves all extremities and no focal motor deficits Other: Currently sedated. Internal Medicine - PN: Obj Da Labs Labs: Laboratory Results - last 24 hr 08/13/24 08/13/24 08/13/24 15:30 16:30 17:46 WBC RBC Hgb Hct MCV MCH MCHC RDW Plt Count MPV Neut % (Auto) Lymph % (Auto) [place] % (Auto) Eos % (Auto) Baso % (Auto) Neut # (Auto) Lymph # (Auto) [place] # (Auto) Eos # (Auto) Baso # (Auto) Abs Immat Gran (auto) Imm/Tot Granulo (auto) Puncture Site Rr Rr ABG pH 7.216 L* 7.225 L* ABG pCO2 80.4 H* 77.3 H* ABG pO2 69.0 L 85.7 ABG HCO3 32.5 H 32.0 H ABG O2 Saturation 93.2 97.1 ABG Base Excess 4.8 H 4.3 H Avinash Test Positive Positive Minute Volume 7.2 Vent Mode FiO2 100 100 Expiratory Pressure Tidal Volume BiPAP 20/10 22/8 Sodium Potassium Chloride Carbon Dioxide Anion Gap BUN Creatinine Est GFR ( Amer) Est GFR (Non-Af Amer) BUN/Creatinine Ratio Glucose Calcium Total Bilirubin AST ALT Alkaline Phosphatase Total Protein Albumin Globulin Albumin/Globulin Ratio POC Glucose 201 H 08/13/24 08/13/24 08/13/24 20:53 21:40 22:45 WBC 8.4 RBC 5.24 Hgb 15.2 Hct 51.2 MCV 97.7 H MCH 29.0 MCHC 29.7 L RDW 15.6 H Plt Count 220 MPV 10.8 Neut % (Auto) 92.6 H Lymph % (Auto) 2.9 L [place] % (Auto) 3.2 Eos % (Auto) 0.0 L Baso % (Auto) 0.1 L Neut # (Auto) 7.8 H Lymph # (Auto) 0.2 L [place] # (Auto) 0.3 Eos # (Auto) 0.0 Baso # (Auto) 0.0 Abs Immat Gran (auto) 0.10 H Imm/Tot Granulo (auto) 1.2 H Puncture Site Rt radial Rt radial ABG pH 7.264 L* 7.300 L ABG pCO2 68.7 H* 64.6 H* ABG pO2 67.9 L 68.8 L ABG HCO3 31.1 H 31.7 H ABG O2 Saturation 94.2 94.7 ABG Base Excess 4.1 H 5.3 H Avinash Test Positive Positive Minute Volume Vent Mode A/c A/c FiO2 100 100 Expiratory Pressure 8 8 Tidal Volume 600 600 BiPAP Sodium 140 Potassium 4.2 Chloride 102 Carbon Dioxide 35.6 H Anion Gap 6.6 BUN 55.0 H Creatinine 1.65 H Est GFR ( Amer) 51 L Est GFR (Non-Af Amer) 42 L BUN/Creatinine Ratio 33.3 Glucose 192 H Calcium 8.5 Total Bilirubin 1.0 AST 26 ALT 41 Alkaline Phosphatase 93 Total Protein 6.1 L Albumin 2.5 L Globulin 3.6 Albumin/Globulin Ratio 0.7 POC Glucose 08/14/24 08/14/24 08/14/24 05:43 08:35 10:58 WBC 6.4 RBC 5.04 Hgb 14.6 Hct 47.8 MCV 94.8 H MCH 29.0 MCHC 30.5 RDW 15.5 H Plt Count 211 MPV 10.8 Neut % (Auto) 89.1 H Lymph % (Auto) 4.1 L [place] % (Auto) 5.8 Eos % (Auto) 0.0 L Baso % (Auto) 0.2 Neut # (Auto) 5.7 Lymph # (Auto) 0.3 L [place] # (Auto) 0.4 Eos # (Auto) 0.0 Baso # (Auto) 0.0 Abs Immat Gran (auto) 0.05 H Imm/Tot Granulo (auto) 0.8 H Puncture Site Right radial ABG pH 7.413 ABG pCO2 48.3 H ABG pO2 62.0 L ABG HCO3 30.8 H ABG O2 Saturation 93.3 ABG Base Excess 6.2 H Avinash Test Positive Minute Volume Vent Mode Ac FiO2 100 Expiratory Pressure +8 Tidal Volume 600 BiPAP Sodium 140 Potassium 3.9 Chloride 102 Carbon Dioxide 32.4 H Anion Gap 9.5 BUN 54.0 H Creatinine 1.64 H Est GFR ( Amer) 51 L Est GFR (Non-Af Amer) 42 L BUN/Creatinine Ratio 32.9 Glucose 194 H Calcium 8.6 Total Bilirubin 1.1 H AST 24 ALT 39 Alkaline Phosphatase 82 Total Protein 5.8 L Albumin 2.4 L Globulin 3.4 Albumin/Globulin Ratio 0.7 POC Glucose 198 H Urinary Catheter Management Urinary Catheter Management Urethral: Cath placed during this visit: yes Urethral indwelling: Yes Reason for continuing: measure accurate output Insertion date: 08/10/24 Insertion time: 16:15
[2024-08-14 18:06] LABS: Glucometer 207 mg/dL (74-106)
[2024-08-14] MEDS: PANTOPRAZOLE SODIUM 40 MG VIAL IV (19:33)
[2024-08-14] MEDS: VANCOMYCIN HCL 2,000 MG in 0.9 % SODIUM CHLORIDE 500 ML 250 MG IV (19:33)
[2024-08-14] MEDS: APIXABAN 5 MG TABLET PO (20:32)
[2024-08-14 20:36] LABS: Glucometer 211 mg/dL (74-106)
[2024-08-14] MEDS: ACETAMINOPHEN 325 MG TABLET 650 MG PO (21:55)
[2024-08-14 23:53] LABS: Glucometer 223 mg/dL (74-106)
[2024-08-15] VITALS (39 sets, daily range): BP systolic 138–165; BP diastolic 80–116; PULSE 83–85; TEMP 37.1–37.2; O2SAT 94–98
[2024-08-15] MEDS: METHYLPREDNISOLONE SOD SUCC PF 40 MG/ML VIAL IVP (01:04)
[2024-08-15] MEDS: PROPOFOL 1,000 MG/100 ML VIAL 28.8 MG IV ×3 (02:23→09:07)
[2024-08-15] MEDS: IPRATROPIUM/ALBUTEROL SULFATE 3 ML AMPUL.NEB IH (04:00)
[2024-08-15] MEDS: INSULIN ASPART 300 UNIT/3 ML PEN SUBQ (05:23)
[2024-08-15 05:24] LABS: Glucometer 249 mg/dL (74-106)
[2024-08-15] MEDS: PIPERACILLIN SODIUM/TAZOBACTAM 3.375 GM in 0.9 % SODIUM CHLORIDE 50 ML IV (06:09)
[2024-08-15 06:18] LABS: Basophils Percent Auto 0.1 % (0.2-2.0); Hematocrit 51.2 % (42.0-54.0); Hemoglobin 15.9 g/dL (14.0-18.0); Immature Granulocytes Abs Auto 0.06 10^3/uL (0.00-0.03); Immature Granulocytes Pct Auto 0.8 % (0.0-0.5); Lymphocytes Absolute Auto 0.3 10^3/uL (1.2-3.8); Lymphocytes Percent Auto 4.4 % (20.5-60.0); Mean Corpuscular HGB Conc 31.1 g/dL (29.9-35.2); Mean Corpuscular Hemoglobin 28.9 pg (25.9-34.0); Mean Corpuscular Volume 93.1 fL (80.0-94.0); Mean Platelet Volume 10.6 fL (9.5-13.5); Monocytes Absolute Auto 0.7 10^3/uL (0.3-0.8); Monocytes Percent Auto 9.7 % (1.7-12.0); Neutrophils Absolute Auto 6.3 10^3/uL (1.4-6.5); Platelet Count 255 10^3/uL (150-450); Red Cell Distribution Width 15.1 % (11.0-15.0); White Blood Count 7.4 10^3/uL (4.0-11.0)
[2024-08-15 06:42] LABS: Alanine Aminotransferase 37 U/L (16-63); Albumin Globulin Ratio 0.7; Albumin Level 2.6 g/dL (3.4-5.0); Alkaline Phosphatase 81 U/L (46-116); Anion Gap 10.4; Aspartate Amino Transferase 28 U/L (15-37); BUN Creatinine Ratio 31.3; Bilirubin Total 1.2 mg/dL (0.2-1.0); Calcium 9.2 mg/dL (8.5-10.1); Carbon Dioxide 35.4 mmol/L (21.0-32.0); Chloride 101 mmol/L (98-107); Estimated GFR (African America 51 (>=60 mL/min/1.73m^2); Estimated GFR (Non-African Ame 42 (>=60 mL/min/1.73m^2); Globulin 3.7 g/dL; Glucose 268 mg/dL (74-106); Potassium 3.8 mmol/L (3.5-5.1); Sodium 143 mmol/L (136-145); Total Protein 6.3 g/dL (6.4-8.2)
--- NOTE | 2024-08-15 07:04 | RESP.RT ---
Weaned down from 100%
--- NOTE | 2024-08-15 07:53 | XR_ITS ---
The [address] [address] Patient Name: TYLER SMITH MRN: [id number] date: 1960 Sex: M Assigned Patient Location: ICU Current Patient Location: Accession/Order Number: [id number] Exam Date: 08/15/2024 08:40 Report Date: 08/16/2024 07:50 At the request of: SHAIKH BANDAR Procedure: XR chest 1V Exam: Radiographs: XR chest 1V Reason for exam: chf/pna Comparison: Plain films dated 08/14/2024 XR/XR chest 1V IMPRESSION: Atelectasis and/or infiltrate in the lower lungs bilaterally, more evident on the right. Small bilateral pleural effusions. Pulmonary venous hypertension. ETT with tip in the midthoracic trachea. Left PICC with tip in the right atrium. Possible esophageal hiatal hernia. Remainder of the chest is unremarkable. Electronically authenticated by: JAZMÍN NAQVI Date: 08/16/2024 07:50
[2024-08-15] MEDS: METOPROLOL TARTRATE 100 MG TABLET PO (08:15)
[2024-08-15] MEDS: APIXABAN 5 MG TABLET PO (08:15)
[2024-08-15] MEDS: FUROSEMIDE 100 MG/10 ML VIAL 80 MG IVP (08:17)
[2024-08-15 08:33] LABS: ABG PCO2 47.8 mmHg (35.0-45.0); Allen Test POSITIVE (POSITIVE); HCO3 ABG 34.7 mmol/L (22.0-26.0); O2 Mode VENT; pH ABG 7.469 (7.350-7.450)
[2024-08-15 08:34] LABS: Fractionated Inspired Oxygen 90 %; Minute Volume 13.8; Pos End Expiratory Pressure 8; Puncture Site RIGHT RADIAL; Rate 22; Tidal Volume 600; Vent Mode AC/VC
[2024-08-15] MEDS: MIDAZOLAM HCL 100 MG in 0.9 % SODIUM CHLORIDE 80 ML IV (09:07)
--- NOTE | 2024-08-15 09:52 | PC.NURSE ---
report given to [facility]. attempted to contact tawnya paulino as listed on pts emergency contact list, no answer, no message left.
--- NOTE | 2024-08-15 10:08 | PC.NURSE ---
report called to amanuel at [facility] [phone]
--- NOTE | 2024-08-15 11:45 | P.DS_ITS ---
DS: Providers Provider Date of admission: 08/10/24 08:41 Primary care physician: GARRETT QUINTANA Admitting clinician: Shaikh Mono Attending physician on admission: Shaikh Mono Consults: 08/09/24 14:36 Occupational Therapy Eval and Treat Routine Reason for consultation: Ambulatory dysfunction/weakness Physical Therapy Eval and Treat Routine Reason for consultation: Ambulatory dysfunction/weakness 08/09/24 14:54 Consult to Podiatry Routine Consulting Provider: Rc Curtis Reason for consultation: Left LE cellulitis 08/10/24 13:03 Consult to Cardiology Routine Reason for consultation: acute systolic HF Attending physician on discharge: Shaikh Mono Discharging clinician: Shaikh Mono Anticipated date of discharge: 08/15/24 DS: Diagnosis Discharge Diagnosis (1) Acute on chronic respiratory failure with hypercapnia: (2) Acute on chronic respiratory failure with hypoxia: (3) Sepsis: Qualifiers: Sepsis type: methicillin resistant Staphylococcus aureus Sepsis acute organ dysfunction status: with acute organ dysfunction Severe sepsis acute organ dysfunction type: acute respiratory failure Acute respiratory failure type: with hypercapnia Severe sepsis shock status: without septic shock Qualified Code(s): A41.02 - Sepsis due to Methicillin resistant Staphylococcus aureus; R65.20 - Severe sepsis without septic shock; J96.02 - Acute respiratory failure with hypercapnia (4) Atrial flutter with rapid ventricular response: (5) Cardiomyopathy: Qualifiers: Cardiomyopathy type: unspecified Qualified Code(s): I42.9 - Cardiomyopathy, unspecified (6) Acute systolic heart failure: (7) Cellulitis of left leg: (8) Ulcer of left lower extremity, limited to breakdown of skin: (9) Bilateral pneumonia: Qualifiers: Pneumonia type: due to unspecified organism Lung location: lower lobe of lung Qualified Code(s): J18.9 - Pneumonia, unspecified organism (10) KRISTINE (acute kidney injury): (11) Type 2 diabetes mellitus with diabetic polyneuropathy: 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 Upon arrival his workup was consistent with sepsis secondary to left lower extremity cellulitis and he was started on IV vancomycin and IV Zosyn. He subsequently became confused/agitated and also develop A-fib with RVR and was found to have acute respiratory failure with hypercapnia that required BiPAP therapy. Further workup also revealed bilateral pneumonia, acute systolic heart failure (no previous history of congestive heart failure) for which he was started on IV Lasix. He initially improved and was transitioned to high flow oxygen but subsequently was placed on BiPAP again and failed to improve on it and was intubated and put on mechanical ventilator for acute on chronic respiratory failure with hypoxia and hypercapnia. His case was discussed with MICU team at [facility] so that he could be transferred as starting from Friday we did not have an inpatient provider wait event privilege. His gas exchange was acceptable on ventilator and he is stable for transfer Time Spent with Patient Time attestation: Total time spent providing and/or coordinating discharge services: Exam Constitutional Vital Signs, click to edit/add: Last Vital Signs Temp 98.9 F 08/15/24 08:34 Pulse 85 08/15/24 09:30 Resp 22 H 08/15/24 07:02 BP 152/89 H 08/15/24 09:30 Pulse Ox 97 08/15/24 09:30 O2 Del Method Mechanical Ventilator 08/15/24 08:34 O2 Flow Rate 40 08/13/24 07:36 FiO2 90 08/15/24 07:43 General appearance: comfortable Other: Sedated/on ventilator HENMT Common normals: normocephalic and head/scalp atraumatic Eye Other: Pupils unequal. Left pupil pinpoint, right pupil 6 mm Respiratory Other: Diminished lung sounds. Crackles at lung bases. Breathing with vent. On ventilator. No wheezing. Cardio Common normals: regular rate, S1 normal heart sound and S2 normal heart sound Rhythm: abnormal rhythm GI Common normals: soft to palpation and non-tender Other: distended abdomen Extremity Other: Right TMA LLE -erythema, induration, tenderness extending all the way from foot to just below knee. Superficial seeping wounds seen on exam, mild improvement from before. Neuro Common normals: moves all extremities and no focal motor deficits Other: Currently sedated. DS: Data Data Completed and Pending Labs on day of discharge: Labs from last 24 hours 08/15/24 08/15/24 08/15/24 08:25 05:40 05:23 WBC 7.4 RBC 5.50 Hgb 15.9 Hct 51.2 MCV 93.1 MCH 28.9 MCHC 31.1 RDW 15.1 H Plt Count 255 MPV 10.6 Neut % (Auto) 85.0 H Lymph % (Auto) 4.4 L Evans % (Auto) 9.7 Eos % (Auto) 0.0 L Baso % (Auto) 0.1 L Neut # (Auto) 6.3 Lymph # (Auto) 0.3 L [place] # (Auto) 0.7 Eos # (Auto) 0.0 Baso # (Auto) 0.0 Abs Immat Gran (auto) 0.06 H Imm/Tot Granulo (auto) 0.8 H Puncture Site Right radial ABG pH 7.469 H ABG pCO2 47.8 H ABG pO2 81.0 ABG HCO3 34.7 H ABG O2 Saturation 97.0 ABG Base Excess 11.0 H Avinash Test Positive Minute Volume 13.8 Vent Mode Ac/vc FiO2 90 Expiratory Pressure 8 Tidal Volume 600 Sodium 143 Potassium 3.8 Chloride 101 Carbon Dioxide 35.4 H Anion Gap 10.4 BUN 52.0 H Creatinine 1.66 H Est GFR ( Amer) 51 L Est GFR (Non-Af Amer) 42 L BUN/Creatinine Ratio 31.3 Glucose 268 H Calcium 9.2 Total Bilirubin 1.2 H AST 28 ALT 37 Alkaline Phosphatase 81 Total Protein 6.3 L Albumin 2.6 L Globulin 3.7 Albumin/Globulin Ratio 0.7 POC Glucose 249 H 08/14/24 08/14/24 08/14/24 23:52 20:35 18:05 WBC RBC Hgb Hct MCV MCH MCHC RDW Plt Count MPV Neut % (Auto) Lymph % (Auto) [place] % (Auto) Eos % (Auto) Baso % (Auto) Neut # (Auto) Lymph # (Auto) [place] # (Auto) Eos # (Auto) Baso # (Auto) Abs Immat Gran (auto) Imm/Tot Granulo (auto) Puncture Site ABG pH ABG pCO2 ABG pO2 ABG HCO3 ABG O2 Saturation ABG Base Excess Avinash Test Minute Volume Vent Mode FiO2 Expiratory Pressure Tidal Volume Sodium Potassium Chloride Carbon Dioxide Anion Gap BUN Creatinine Est GFR ( Amer) Est GFR (Non-Af Amer) BUN/Creatinine Ratio Glucose Calcium Total Bilirubin AST ALT Alkaline Phosphatase Total Protein Albumin Globulin Albumin/Globulin Ratio POC Glucose 223 H 211 H 207 H Discharge Plan Discharge Disposition: [facility] Discharge Date/Time: 08/15/24 10:02 Discharge location: [facility] - under Dr Woodruff
== END 2024-08-15 10:02 | disposition short-term general hospital (02) | DRG 871 ==
LOC: ER 13:50 → MS 15:51 → ICU 20:43
PROVIDERS: Emergency Medicine; Registered Nurse; Admitting Provider Internal Medicine; Emergency Provider Emergency Medicine; PCP Nurse Practitioner Family; Visit Provider Internal Medicine
DX: A41.02 Sepsis due to Methicillin resistant Staphylococcus aureus (principal); I50.21 Acute systolic (congestive) heart failure; J96.21 Acute and chronic respiratory failure with hypoxia; J96.22 Acute and chronic respiratory failure with hypercapnia; J18.9 Pneumonia, unspecified organism; E11.628 Type 2 diabetes mellitus with other skin complications; L03.116 Cellulitis of left lower limb; E11.622 Type 2 diabetes mellitus with other skin ulcer; L97.921 Non-pressure chronic ulcer of unspecified part of left lower leg limited to breakdown of skin; I48.92 Unspecified atrial flutter; I42.9 Cardiomyopathy, unspecified; Z68.42 Body mass index [BMI] 45.0-49.9, adult; N17.9 Acute kidney failure, unspecified; R65.20 Severe sepsis without septic shock; E11.22 Type 2 diabetes mellitus with diabetic chronic kidney disease; E11.42 Type 2 diabetes mellitus with diabetic polyneuropathy; E66.01 Morbid (severe) obesity due to excess calories; E87.5 Hyperkalemia; F17.210 Nicotine dependence, cigarettes, uncomplicated; G47.33 Obstructive sleep apnea (adult) (pediatric); J44.9 Chronic obstructive pulmonary disease, unspecified; N18.9 Chronic kidney disease, unspecified; Z79.84 Long term (current) use of oral hypoglycemic drugs; Z79.4 Long term (current) use of insulin
CPT/HCPCS: 36415; 36569; 36592; 36600; 51702; 70450; 71045; 73590; 73630; 73701; 80048; 80053; 80202; 82800; 82805; 82948; 83605; 83880; 84443; 85007; 85025; 85027; 85610; 85652; 86140; 87040; 87070; 87075; 87086; 87150; 87186; 93005; 93306; 93971; 94002; 94003; 94640; 94660; 94761; 94799; 96365; 96368; 97162; 97165; 97530; 99285; G0378; J0330; J1160; J1200; J1630; J1650; J1940; J2060; J2250; J2270; J2405; J2543; J2704; J2919; J3370; Q9966

== ENCOUNTER 2024-11-16 14:21 | Outpatient (OUT) | payer OTHER, SELFPAY | END 2024-11-16 14:22 | disposition home or self-care (01) | LOC: WC 14:21 | PROVIDERS: PCP Nurse Practitioner Family; Visit Provider Physician Assistant | DX: I87.312 Chronic venous hypertension (idiopathic) with ulcer of left lower extremity (principal); L97.828 Non-pressure chronic ulcer of other part of left lower leg with other specified severity; R60.1 Generalized edema | CPT/HCPCS: G0463 ==

== ENCOUNTER 2025-01-05 14:28 | Outpatient (OUT) | payer MEDICARE, SELFPAY ==
--- OUTSIDE RECORDS SUMMARY | 2024-04-08 04:15 | XMS_ITS ---
Author Organization The [facility] in [place] Address [address] [place] [address] Care Team Providers Care Caseworker Name Role Phone Dara Eisenberg CNP Primary Care Provider U Rc Prado [phone] REASON FOR VISIT RT TMA Encounters Encounter Location Date Provider Diagnosis [facility] OUTPATIENT [address] [place] [address] 04/08/2024 cR Curtis Plan Of Treatment No Information Progress Notes * Onofre SMITHDOB:1960 ([age] yo M)Acc No.[id number]:04/08/2024 UNLOCKED PROGRESS NOTE Patient: Onofre CORDERO Provider: Los Curtis DPM, MS :1960 A ge:63 Y S ex:Male Date:04/08/2024 Address:[address] [place], [place] [id number] Pcp:Dara Eisenberg CNP Check Out:12:18 PM EST * * Electronic signature of Cm Curtis DPM on 01/05/2025 at 02:34 PM EDT Sign off status: Pending Visit Status: C HK (Check Out) * Provider: Los Curtis DPM, MS Date: 04/08/2024 Generated for Cati ng/Leisag/eTransmitting on: 01/05/2025 02:34 PM EDT
--- OUTSIDE RECORDS SUMMARY | 2024-04-09 06:38 | XMS_ITS ---
Author Organization [facility] in [place] Address [address] [place] [address] Care Team Providers Care Civil Estimator Name Role Phone Dara Eisenberg CNP Primary Care Provider Kylah Foote Unavailable [phone] REASON FOR VISIT post op medications Medications Medication SIG (Take, Route, Frequency, Duration) Notes Start Date End Date Status Sulfamethoxazole-Trimethop rim 800-160 MG 1 tablet Orally twice daily for 10 days 04/09/2024 Active HYDROcodone-Acetaminophen 5-325 MG 1 tablet as needed Orally every 6 hrs for 7 days 04/12/2024 Active Encounters Encounter Location Date Provider Diagnosis [facility] (PODIATRY) [address] [place] [address] [place] [address] 04/09/2024 Kylah Leigh Plan Of Treatment Medication Medication Name Sig Start Date Stop Date Notes Sulfamethoxazole-Trimethopri m 800-160 MG 1 tablet Orally twice daily for 10 days 04/09/2024 HYDROcodone-Acetaminophen 5- 325 MG 1 tablet as needed Orally every 6 hrs for 7 days 04/12/2024 Progress Notes * Onofre SMITHDOB:1960 ([age] yo M)Acc No.[id number]:04/09/2024 Patient: Onofre CORDERO :1960 A ge:63 Y S ex:Male Address:[address] [place] [address], [address] * Refills Start HYDROcodone-Acetaminophen Tablet, 5-325 MG, Orally, 28 Tablet, 1 tablet as needed, every 6 hrs, 7 days, Refills=0 Start Sulfamethoxazole-Trimethoprim Tablet, 800-160 MG, Orally, 20, 1 tablet, twice daily, 10 days, Refills=0 * true * Date: Generated for Den woodward/Klaudia/Meg on: 0 01/05/2025 02:33 PM EDT
--- OUTSIDE RECORDS SUMMARY | 2025-01-05 14:34 | XMS_ITS | Clinical Summary ---
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 9 mL 5 Active apixaban (Eliquis) 5 mg tabletIndications:At rial fibrillation, unspecified type (CMS/HCC) Take 1 tablet (5 mg) by mouth two times daily for 171 doses. 5 Active atorvastatin (Lipitor) 80 mg tabletIndications:Hy perlipidemia, unspecified hyperlipidemia type Take 1 tablet (80 mg) by mouth at bedtime for 84 doses. 5 Active furosemide (Lasix) 40 mg tabletIndications:Ac [place] hypoxic respiratory failure (CMS/HCC) Take 1 tablet (40 mg) by mouth in the morning for 91 doses. 5 Active gabapentin (Neurontin) 300 mg capsuleIndications:S ciatica, unspecified laterality Take 1 capsule (300 mg) by mouth three times daily for 290 doses. 5 Active metoprolol tartrate (Lopressor) 50 mg tabletIndications:At rial fibrillation, unspecified type (CMS/HCC) Take 1 tablet (50 mg) by mouth two times daily for 168 doses. 5 Active QUEtiapine (SEROquel) 50 mg tabletIndications:Ag itation Take 1 tablet (50 mg) by mouth at bedtime for 81 doses. 5 Active traMADol (Ultram) 50 mg tabletIndications:Sc iatica, unspecified laterality Take 1 tablet (50 mg) by mouth every 6 (six) hours if needed for severe pain (8-10 pain score) for up to 12 doses. 12 tablet 5 Active magnesium oxide (Mag-Ox) 400 mg (241.3 mg magnesium) tabletIndications:Hy pomagnesemia Take 1 tablet (400 mg) by mouth two times daily for 193 doses. 5 025 Active Problems Problem Noted Date Diagnosed Date Acute hypoxic respiratory failure 08/15/2024 Social History Tobacco Use Types Packs/Day Years Used Date Smoking Tobacco: Every Day Cigarettes Smokeless Tobacco: Never Tobacco Cessation:Ready to Q uit: Not Asked; Counseling Given: Not Answered [facility] Utilities Answer Date Recorded In the past 12 months has th e [employer], oil, or water [employer] threatened to shut off services in your home? Patient unable to answer 08/15/2024 Humiliation, Afraid, Rape, a nd Kick questionnaire Answer Date Recorded Within the last year, have y ou been afraid of your partner or ex-partner? Patient unable to answer 08/15/2024 Emotionally Abused Not on file 08/15/2024 Physically Abused Not on file 08/15/2024 Sexually Abused Not on file 08/15/2024 Overall Financial Resource Strain (CARDIA) Answe r Date Recorded How hard is it for you to pa y for the very basics like food, housing, medical care, and heating? Patient unable to answer 08/15/2024 Transportation Answer Date Recorded In the past 12 months, has l ack of transportation kept you from medical appointments or from getting medications? Patient unable to answer 08/15/2024 Lack of Transportation (Non-Medical) Not on file 08/15/2024 Housing Stability Vital Sign Answer Ricardo e Recorded In the last 12 months, was t here a time when you were not able to pay the mortgage or rent on time? Patient unable to answer 08/15/2024 Number of Times Moved in the Last Year Not on fi le 08/15/2024 At any time in the past 12 m [facility], were you homeless or living in a longterm (including now)? Patient unable to answer 08/15/2024 Hunger Vital Sign Answer Date Recorded Within the past 12 months, y ou worried that your food would run out before you got the money to buy more. Patient unable to answer 08/15/2024 Ran Out of Food in the Last Year Not on file 08/15/2024 Sex and Gender Information Value Date Recorded Sex Assigned at Male 08/17/2024 2:16 PM EST Legal Sex Male 12:13 PM EST Gender Identity Male 08/17/2024 2:16 PM EST Sexual Orientation Not on file Last Filed Vital Signs Vital Sign Reading Time Taken Comments Blood Pressure 130/98 09/09/2024 8:00 AM EST Pulse 73 09/09/2024 8:33 AM EST Temperature 36.3 C (97.4 F) 09/09/2024 4:15 AM EST Respiratory Rate 22 09/09/2024 4:15 AM EST Oxygen Saturation 92% 09/09/2024 8:00 AM EST Inhaled Oxygen Concentration - - Weight 129 kg (284 lb 13.4 oz) 09/09/2024 3:34 A M EST Height 180.3 cm (5' 10.98 ) 08/28/2024 8:[address] Body Mass Index 39.74 08/28/2024 8:00 AM EST Plan of Treatment Health Maintenance Due Date Last Done Comments CT Colonography 1960 Colonoscopy 1960 Colorectal Cancer Screening 1960 FIT-DNA 1960 FIT 1960 FOBT 1960 Medicare Annual Wellness (AWV) 1960 Sigmoidoscopy 1960 Diabetes: Retinopathy Screening 1968 Depression Screening 1970 Diabetes: Urine Protein Screening 1977 Pneumococcal Vaccine: 50+ Years (1 of 2 - PCV) 1977 Adult Tetanus 1980 Zoster Vaccines (1 of 2) 2008 COVID-19 Vaccine (2023-2 5 season) 2024 06/29/2022, 10/27/2020, 10/01/2020 Diabetes: Hemoglobin A1C 11/13/2024 08/15/2024 Influenza Vaccine (Season Ended) 2025 06/23/2022 Fall Risk Screening 09/09/2025 09/09/2024 HIB Vaccines Aged Out No longer eligi ble based on patient's age to complete this topic HPV Vaccines Aged Out No longer eligi ble based on patient's age to complete this topic IPV Vaccines Aged Out No longer eligi ble based on patient's age to complete this topic Meningococcal B Vaccine Aged Out No l onger eligible based on patient's age to complete this topic Meningococcal Vaccine Aged Out No yoselin celina eligible based on patient's age to complete this topic Rotavirus Vaccines Aged Out No longer eligible based on patient's age to complete this topic Procedures Procedure Name Priority Date/Time Associated Diagnosis Comments HEMOGLOBIN A1C Add-On 08/15/2024 2:04 PM EST from Last 3 Months or Most Recently Relevant to Health Maintenance Results * (ABNORMAL) Hemoglobin A1c (08/15/2024 2:04 PM EST) Hemoglobin A1C 8.2(H) 4.0 - 6.0 % 08/16/2024 12:30 PM EST [facility] ([facility]) Estimated Average Glucose 189 mg/dL 08/16/2024 12:30 PM EST [facility]) Blood Venous blood specimen / Unknown Arterial Line / Unknown 08/15/2024 2:04 PM EST 08/15/2024 2:30 PM EST us Chantal Woodruff MD LAB BLOOD ORDERABLES Final Re sult [facility] ([facility]) [address] [place] [address] from Last 3 Months or Most Recently Relevant to Health Maintenance Additional Health Concerns Infection Onset Date Last Indicated MRSA 08/18/2024 08/21/2024 Insurance [employer] Advance Directives * Full Code (Latest Code Status on File) Date Activated Date Inactivated Comments 08/15/2024 12:24 PM 09/09/2024 2:30 PM Care Teams Delivery Sales Worker Relationship Specialty Start Date End Date Dara Eisenberg NP [address] [place] [address] PCP - General Family Medicine 07/21/24
--- OUTSIDE RECORDS SUMMARY | 2025-01-05 14:34 | XMS_ITS | Clinical Summary ---
Author Organization [facility] Address [address] [place] [address] Care Team Providers Care Special Procedures Tech Name Role Phone Dara Eisenberg NP Primary Care Provider Social History Tobacco Use Types Packs/Day Years Used Date Smoking Tobacco: Never Assessed Sex and Gender Information Value Date Recorded Sex Assigned at Not on file Legal Sex Male 7:20 PM EDT Gender Identity Not on file Sexual Orientation Not on file Plan of Treatment Not on file Insurance [employer] Care Teams Special Procedures Tech Relationship Specialty Start Date End Date Dara Eisenberg NP [address] [place] [address] [address] [address] [place] [address] PCP - General Family Medicine 11/11/24
--- OUTSIDE RECORDS SUMMARY | 2025-01-05 14:34 | XMS_ITS | Clinical Summary ---
Author Organization [facility] Address [address] [place] [address] Care Team Providers Care Office Sweeper Name Role Phone Unavailable Primary Care Provider Unavailabl e Social History Tobacco Use Types Packs/Day Years Used Date Smoking Tobacco: Never Assessed Sex and Gender Information Value Date Recorded Sex Assigned at Not on file Legal Sex Male 10:12 AM EST Gender Identity Not on file Sexual Orientation Not on file Plan of Treatment Not on file
--- OUTSIDE RECORDS SUMMARY | 2025-01-05 14:34 | XMS_ITS | Clinical Summary ---
Author Organization [facility] Address [address] [place] [id number] Care Team Providers Care Otolaryngology Rep Name Role Phone No, Physician Primary Care Provider Unavailabl e Allergies No known active allergies Medications gabapentin (NEURONTIN) 300 MG capsule Take 300 mg by mouth 2 (two) times a day. 1 07/19/2016 Active metFORMIN (GLUCOPHAGE) 1000 MG tablet Take 1,000 mg by mouth 2 (two) times a day. 5 06/28/2016 Active triamterene-hydr ochlorothiazide (DYAZIDE) 37.5-25 mg per capsule Take by mouth daily. 5 06/28/2016 Active Social History Tobacco Use Types Packs/Day Years Used Date Smoking Tobacco: Every Day Cigarettes Alcohol Use Standard Drinks/Week Comments No 0 (1 standard drink = 0.6 oz pur e alcohol) Sex and Gender Information Value Date Recorded Sex Assigned at Not on file Legal Sex Male 4:56 PM EDT Gender Identity Not on file Sexual Orientation Not on file Last Filed Vital Signs Vital Sign Reading Time Taken Comments Blood Pressure 138/87 10/04/2016 8:09 PM EDT Pulse 72 10/04/2016 8:09 PM EDT Temperature 36.4 C (97.6 F) 10/04/2016 4:58 PM EDT Respiratory Rate 16 10/04/2016 8:09 PM EDT Oxygen Saturation 97% 10/04/2016 8:09 PM EDT Inhaled Oxygen Concentration - - Weight 141.5 kg (312 lb) 10/04/2016 4:58 PM EDT Height 185.4 cm (6' 1 ) 10/04/2016 4:58 PM EDT Body Mass Index 41.16 10/04/2016 4:58 PM EDT Plan of Treatment Health Maintenance Due Date Last Done Comments CT Colonography 1958 Colonoscopy 1958 Colorectal Cancer Screening/Monitoring 1958 Fecal DNA 1958 Fecal occult blood test (FOBT,FIT) 1958 PSA Level 1958 Tetanus: Every 10yrs 1958 Wellness Visit 1961 Depression Screening/Follow-Up (PHQ-2/9) 1970 Hepatitis C Screening 1976 Pneumococcal Vaccine: Age 50+ (1 of 1 - PCV) 9 Zoster Vaccines (1 of 2) 2008 Falls Risk Assessment 12/02/2023 COVID-19 Vaccine ( season) 2024 Influenza Vaccine (Season Ended) 2025 Respiratory Syncytial Virus Immunization: Risk, 60-74 Risk, or 75+ (1 - 1-dose 75+ series) 2033 Care Teams Otolaryngology Rep Relationship Specialty Start Date End Date No, Physician [facility] PCP - General 10/04/16
--- OUTSIDE RECORDS SUMMARY | 2025-01-05 14:34 | XMS_ITS | Referral Summary ---
Author Organization [facility] Address [address] [place] [address] Care Team Providers Care Seal Mixer Name Role Phone Dara Eisenberg NP Primary Care Provider [phone] Allergies No known active allergies Medications insulin [...] 5 Active furosemide (Lasix) 40 mg tabletIndications:Ac [place] hypoxic respiratory failure (CMS/HCC) Take 1 tablet [...] uit: Not Asked; Counseling Given: Not Answered [facility] Utilities Answer Date Recorded In the past 12 months has th e [employer], oil, or water [employer] threatened to shut off services in your [...] any time in the past [facility], were you homeless or living in a custodial (including now)? Patient unable to answer 08/15/2024 [...] 08/28/2024 8:00 AM EST Plan of Treatment Not on file Procedures Procedure Name Priority Date/Time Associated Diagnosis Comments HEMOGLOBIN A1C Add-On 08/15/2024 2:04 PM EST from Last 3 Months or Most Recently Relevant to Health Maintenance Results * (ABNORMAL) Hemoglobin A1c (08/15/2024 2:04 PM EST) Hemoglobin A1C 8.2(H) 4.0 - 6.0 % 08/16/2024 12:30 PM EST [facility] Estimated Average Glucose 189 mg/dL 08/16/2024 12:30 PM EST [facility] Blood Venous blood specimen / Unknown Arterial Line / Unknown 08/15/2024 2:04 PM EST 08/15/2024 2:30 PM EST us Chantal Woodruff MD LAB BLOOD ORDERABLES Final Re sult [facility] ([facility]) [address] [place] [address] from Last 3 Months or Most Recently Relevant to Health Maintenance Additional Health Concerns Infection Onset 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
--- OUTSIDE RECORDS SUMMARY | 2025-01-05 14:34 | XMS_ITS | Clinical Summary ---
Author Organization [facility] Address [id number] [address] [id number] Care Team Providers Care Regulatory Affairs Manager Name Role Phone Unavailable Primary Care Provider Unavailabl e Social History Tobacco Use Types Packs/Day Years Used Date Smoking Tobacco: Never Assessed Childcare Answer Date Recorded Childcare Unknown 12/30/2018 Employment Answer Date Recorded Employment Unknown 12/30/2018 Sex and Gender Information Value Date Recorded Sex Assigned at Not on file Legal Sex Male 11:51 AM EDT Gender Identity Not on file Sexual Orientation Not on file Plan of Treatment Health Maintenance Due Date Last Done Comments Depression Screening 1970 Tobacco Screening 1970 Adult BMI Screening 1976 DTaP,Tdap and Td Vaccines (1 - Tdap) 1977 Zoster (Shingles) Vaccine (1 of 2) 2008 Fall Risk Screening 12/02/2023 COVID-19 Vaccine ( - 2023-2 5 season) 2024 06/29/2022, 10/27/2020, 10/01/2020 Influenza Vaccine 03/21/2025 06/23/2022 Medical Devices Not on file
== END 2025-01-05 14:29 | disposition home or self-care (01) ==
LOC: WC 14:32
PROVIDERS: PCP Nurse Practitioner Family; Visit Provider Podiatrist Foot & Ankle Surgery
DX: R60.1 Generalized edema (principal); L97.822 Non-pressure chronic ulcer of other part of left lower leg with fat layer exposed; L97.812 Non-pressure chronic ulcer of other part of right lower leg with fat layer exposed; I87.313 Chronic venous hypertension (idiopathic) with ulcer of bilateral lower extremity
CPT/HCPCS: G0463

== ENCOUNTER 2025-01-27 15:08 | Outpatient (OUT) | payer MEDICARE, SELFPAY | END 2025-01-27 15:09 | disposition home or self-care (01) | LOC: WC 15:09 | PROVIDERS: PCP Nurse Practitioner Family; Visit Provider Physician Assistant | DX: I87.313 Chronic venous hypertension (idiopathic) with ulcer of bilateral lower extremity (principal); L97.822 Non-pressure chronic ulcer of other part of left lower leg with fat layer exposed; L97.812 Non-pressure chronic ulcer of other part of right lower leg with fat layer exposed | CPT/HCPCS: G0463 ==

== ENCOUNTER 2025-02-01 15:07 | Outpatient (OUT) | payer MEDICARE, SELFPAY | END 2025-02-01 15:08 | disposition home or self-care (01) | LOC: WC 15:07 | PROVIDERS: PCP Nurse Practitioner Family; Visit Provider Physician Assistant | DX: I87.312 Chronic venous hypertension (idiopathic) with ulcer of left lower extremity (principal); L97.822 Non-pressure chronic ulcer of other part of left lower leg with fat layer exposed; I87.311 Chronic venous hypertension (idiopathic) with ulcer of right lower extremity; L97.812 Non-pressure chronic ulcer of other part of right lower leg with fat layer exposed | CPT/HCPCS: G0463 ==

== ENCOUNTER 2025-02-07 13:41 | Outpatient (OUT) | payer MEDICARE, SELFPAY | END 2025-02-07 13:42 | disposition home or self-care (01) | LOC: WC 13:41 | PROVIDERS: PCP Nurse Practitioner Family; Visit Provider Physician Assistant | DX: I87.313 Chronic venous hypertension (idiopathic) with ulcer of bilateral lower extremity (principal); L97.822 Non-pressure chronic ulcer of other part of left lower leg with fat layer exposed; L97.812 Non-pressure chronic ulcer of other part of right lower leg with fat layer exposed | CPT/HCPCS: G0463 ==

== ENCOUNTER 2025-02-10 12:58 | Outpatient (OUT) | payer MEDICARE, SELFPAY ==
--- OUTSIDE RECORDS SUMMARY | 2024-04-08 04:15 | XMS_ITS ---
Author Organization The [facility] in [place] Address [address] [place] [address] Care Team Providers Care Order Desk Caller Name Role Phone Dara Eisenberg CNP Primary Care Provider U Rc Prado [phone] REASON FOR VISIT RT TMA Encounters Encounter Location Date Provider Diagnosis [facility] OUTPATIENT [address] [place] [address] 04/08/2024 Rc Curtis Plan Of Treatment No Information Progress Notes * Onofre SMITHDOB:1960 ([age] yo M)Acc No.[id number]:04/08/2024 UNLOCKED PROGRESS NOTE Patient: Onofre CORDERO Provider: Los Curtis DPM, MS :1960 A ge:63 Y S ex:Male Date:04/08/2024 Address:[address] [place], [place] [id number] Pcp:Dara Eisenberg CNP Check Out:12:18 PM EST * * Electronic signature of Cm Curtis DPM on 02/10/2025 at 01:00 PM EDT Sign off status: Pending Visit Status: C HK (Check Out) * Provider: Los Curtis DPM, MS Date: 04/08/2024 Generated for Cati ng/Klaudia/eTransmitting on: 02/10/2025 01:00 PM EDT
--- OUTSIDE RECORDS SUMMARY | 2024-04-09 06:38 | XMS_ITS ---
Author Organization [facility] in [place] Address [address] [place] [address] Care Team Providers Care Firmware Architect Name Role Phone Dara Eisenberg CNP Primary Care Provider Kylah Foote Unavailable [phone] REASON FOR VISIT post op medications Medications Medication SIG (Take, Route, Frequency, Duration) Notes Start Date End Date Status Sulfamethoxazole-Trimethop rim 800-160 MG 1 tablet Orally twice daily for 10 days 04/09/2024 Active HYDROcodone-Acetaminophen 5-325 MG 1 tablet as needed Orally every 6 hrs for 7 days 04/12/2024 Active Encounters Encounter Location Date Provider Diagnosis [facility] (PODIATRY) [address] [place] [address] [place] [address] 04/09/2024 Kylah Leigh Plan Of Treatment Medication Medication Name Sig Start Date Stop Date Notes Sulfamethoxazole-Trimethopri m 800-160 MG 1 tablet Orally twice daily for 10 days 04/09/2024 HYDROcodone-Acetaminophen 5- 325 MG 1 tablet as needed Orally every 6 hrs for 7 days 04/12/2024 Progress Notes * Onofre SMITHDOB:1960 ([age] yo M)Acc No.[id number]:04/09/2024 Patient: Onofre CORDERO :1960 A ge:63 Y S ex:Male Address:[address] [place] [address], [address] * Refills Start HYDROcodone-Acetaminophen Tablet, 5-325 MG, Orally, 28 Tablet, 1 tablet as needed, every 6 hrs, 7 days, Refills=0 Start Sulfamethoxazole-Trimethoprim Tablet, 800-160 MG, Orally, 20, 1 tablet, twice daily, 10 days, Refills=0 * true * Date: Generated for Den woodward/Klaudia/Meg on: 0 02/10/2025 01:00 PM EDT
--- OUTSIDE RECORDS SUMMARY | 2025-02-01 11:10 | XMS_ITS | Continuity of Care Document ---
Author Organization [facility] Address [address] [place] [id number] Phone Care Team Providers Care Teacher Theater Arts Name Role Phone Dara Eisenberg APRN Primary Care Provider Dara Eisenberg APRN Attending Provider Angelic Blevins CMA Attending Provider [facility] Care Teams Patient Care Team Team Status: Active Member Role Status Dates Dara Eisenberg APRN PROCESS ENGINEERING MANAGER-C Primary Care Provider Active Visit Care Team Team Status: Inactive Member Role Status Dates Dara Eisenberg APRN PROCESS ENGINEERING MANAGER-C Primary Care Provider Active Start: November 05, 2024 End: November 05, 2024 Dara Eisenberg APRN PROCESS ENGINEERING MANAGER-C Attending Provider Act mook Start: November 05, 2024 End: November 05, 2024 Patient Care Team Team Status: Active Member Role Status Dates Dara Eisenberg APRN PROCESS ENGINEERING MANAGER-C Primary Care Provider Active Start: January 27, 2025 Angelic Blevins CMA Attending Provider Active Start: January 27, 2025 Patient Care Team Team Status: Inactive Member Role Status Dates Dara Eisenberg APRN PROCESS ENGINEERING MANAGER-C Primary Care Provider Active Start: February 01, 2025 End: February 01, 2025 Dara Eisenberg APRN PROCESS ENGINEERING MANAGER-C Attending Provider Act mook Start: February 01, 2025 End: February 01, 2025 Chief Complaint and Reason for Visit Chief Complaint Admit Date F/U retirement stay/Medications-HIGH R ISK November 05, 2024 10:18am Amb Documentation January 27, 2025 8:33 am [facility] [place] [place] follow up February 01, 2025 2:06 pm Reason for Visit Admit Date Atrial flutter November 05, 2024 10: 18am Chronic back pain November 05, 2024 10: 18am COPD (chronic obstructive pulmonary dise ase) November 05, 2024 10:18am Heart failure November 05, 2024 10: 18am Hypertension November 05, 2024 10: 18am Mixed hyperlipidemia November 05, 2024 10 :18am Nicotine dependence November 05, 2024 10: 18am Non-compliance November 05, 2024 10: 18am Non-healing wound of left lower extremit y November 05, 2024 10:18am Non-healing wound of right lower extremi ty November 05, 2024 10:18am Oxygen dependent November 05, 2024 10: 18am Right sided sciatica November 05, 2024 10 :18am Sleep disturbance November 05, 2024 10: 18am Status post partial amputation of right foot November 05, 2024 10:18am Type 2 diabetes mellitus November 05 10:18am Venous insufficiency (chronic) (peripher al) November 05, 2024 10:18am Allergies, Adverse Reactions, Alerts Allergen Type Severity Reaction Last Updated Verified Status No Known Allergies Allergy Unknown February 01, 2025 2:04p m Yes Active Social History Smoking Status Status Start Date End Date Date of Observa tion Smokes tobacco daily (finding) April 05, 2024 2:40pm Observation Status Observation Response Date of Response Legal Sex Male (finding) Sex Assigned At Male 1960 Family History Relationship Condition Age at Onset Recorded Date/T me[place] mother Malignant neoplasm of cervix Unknown Problems Active Problems Medical Problem Onset Date Status Right sided sciatica Unknown Active Non-compliance Unknown Active Non-healing wound of right lower extremity Unkno wn Active Non-healing wound of left lower extremity Unknow n Active Nicotine dependence Unknown Active Low back pain Unknown Active Sleep disturbance Unknown Active Heart failure Unknown Active Erectile dysfunction Unknown Active Type 2 diabetes mellitus Unknown Active MRSA cellulitis of right foot Unknown Ac tive Atrial flutter Unknown Active Status post partial amputation of right foot Unk nown Active Mixed hyperlipidemia Unknown Active Oxygen dependent Unknown Active Chronic back pain Unknown Active Right low back pain Unknown Active COPD (chronic obstructive pulmonary disease) Unk nown Active Encounter for screening for lung cancer Unknown Active Venous insufficiency (chronic) (peripheral) Unkn own Active Hypertension Unknown Active Ulcer of right foot due to type 2 diabetes melli tus Unknown Active Acute osteomyelitis of foot Unknown Acti ve Medications Medication Status Dose Units Route Directions Qty Days St art Date Stop Date End Date Instructions Adherence Insulin Detemir U-100 (Levemir Flexpen) 100 unit/mL (3 mL) insulin pen Discont inued 30 UNIT SUBCUT Daily at bedtime Octobe r 2023 12:10p m Octob er 2023 12:39 pm Insulin Glargine (Lantus Solostar U-100 Insulin) 100 unit/mL (3 mL) insulin pen Discont inued 0 .ROUTE .COMPLEX 15 Octobe r 2023 12:38p m Octob er 2023 3:33p m Please specify directions, refills and quantity Insulin Glargine (Lantus Solostar U-100 Insulin) 100 unit/mL (3 mL) insulin pen Discont inued 30 UNIT SUBCUT Every evening 15 Octobe r 2023 3:32pm December 02, 2024 2:08p m Blood Sugar Diagnostic strip Discont inued 0 .Route 100 Octobe r 2023 12:00a m Octob er 2023 1:31p m As directed Blood Sugar Diagnostic strip Active 0 .Route 100 Octobe r 2023 1:31pm As directed Cyclobenzap rine 10 mg tablet Discont inued 0 .ROUTE .COMPLEX 30 Novemb er 2023 10:38a m Decem rubén 2023 4:22p m TAKE 1 TABLET BY MOUTH DAILY AT BEDTIME Insulin Glargine (Basaglar Kwikpen U-100 Insulin) 100 unit/mL (3 mL) insulin pen Discont inued 3 UNIT SUBCUT Twice daily 5.4 90 December 02, 2024 12:00a m December 02, 2024 2:08p m Insulin Glargine (Basaglar Kwikpen U-100 Insulin) 100 unit/mL (3 mL) insulin pen Discont inued 30 UNIT SUBCUT Twice daily 54 90 December 02, 2024 2:08pm December 02, 2024 2:09p m Insulin Glargine (Basaglar Kwikpen U-100 Insulin) 100 unit/mL (3 mL) insulin pen Active 30 UNIT SUBCUT Every evening 27 90 December 02, 2024 2:09pm cancel BID order should be q pm Complies with drug therapy Albuterol Sulfate 2.5 mg /3 mL (0.083 %) solution for nebulizatio n Active 0 .ROUTE .COMPLEX 300 December 13, 2024 9:06am INHALE 1 VIAL VIA NEBULIZER EVERY 6 HOURS NEEDED Complies with drug therapy Metformin 1,000 mg tablet Discont inued 1000 MG PO Daily Sept2023 12:00a m November 05, 2024 11:45 am Meclizine 25 mg tablet Discont inued 25 MG PO Septem 2023 12:00a m Decem rubén 2023 4:22p m Glipizide 5 mg tablet Active 5 MG PO Twice daily 180 90 Decemb er 2023 4:31pm Complies with drug therapy Sildenafil (Viagra) 50 mg tablet Active 50 MG PO Daily as needed for sexual activity 14 30 Decemb er 2023 1:00am administer 30 minutes to 4 hours before activity Complies with drug therapy Quetiapine 50 mg tablet Discont inued 50 MG PO Daily November 05, 2024 12:00a m November 05, 2024 11:48 am Gabapentin 300 mg capsule Discont inued 600 MG PO Three times daily November 05, 2024 12:00a m November 05, 2024 11:48 am 2 caps in AM, 1 in afternoon, 2 caps in PM Metoprolol Tartrate 50 mg tablet Discont inued 50 MG PO Twice daily November 05, 2024 12:00a m November 05, 2024 11:39 am Magnesium Oxide 400 mg (241.3 mg magnesium) tablet Active 400 MG PO Twice daily November 05, 2024 12:00a m Complies with drug therapy Tramadol 50 mg tablet Discont inued 50 MG PO Every 6 hours as needed November 05, 2024 12:00a m November 05, 2024 11:45 am Albuterol Sulfate 2.5 mg /3 mL (0.083 %) solution for nebulizatio n Discont inued 2.5 MG CNTNEB ULIZ Every 6 hours as needed November 05, 2024 12:00a m December 13, 2024 9:07a m Atorvastati n 80 mg tablet Discont inued 80 MG PO Daily November 05, 2024 12:00a m November 05, 2024 11:38 am Furosemide 40 mg tablet Discont inued 40 MG PO Daily November 05, 2024 12:00a m November 05, 2024 11:38 am Furosemide 40 mg tablet Active 40 MG PO Daily 90 November 05, 2024 11:13a m Complies with drug therapy Atorvastati n 80 mg tablet Active 80 MG PO Daily 90 November 05, 2024 11:38a m Complies with drug therapy Metoprolol Tartrate 50 mg tablet Active 50 MG PO Twice daily 180 November 05, 2024 11:38a m Complies with drug therapy Quetiapine 50 mg tablet Discont inued 50 MG PO Daily 90 November 05, 2024 11:44a m February 01, 2025 2:34p m Gabapentin 300 mg capsule Active 600 MG PO Three times daily 50 10 November 05, 2024 11:46a m 2 caps in AM, 1 in afternoon, 2 caps in PM Complies with drug therapy Apixaban 5 mg tablet Discont inued 5 MG PO Twice daily 180 November 08, 2024 12:00a m November 08, 2024 9:02a m Apixaban 5 mg tablet Active 5 MG PO Twice daily 180 November 08, 2024 9:02am Complies with drug therapy Glipizide 5 mg tablet Discont inued 5 MG PO Once 2023 12:00a m [facility] rubén 2023 4:32p m Amoxicillin -Pot Clavulanate 875-125 mg tablet Discont inued TAB PO 2023 12:00a [facility] Insulin Detemir U-100 (Levemir Flexpen) 100 unit/mL (3 mL) insulin pen Discont inued 30 UNIT SUBCUT Daily at bedtime rubén 2023 12:00a m Octob er 2023 12:11 pm Oxygen unit Active 0 .Route rubén 2023 12:00a m As directed Sulfamethox azole-Trime thoprim 800-160 mg tablet Discont inued TAB PO Twice daily Octobe r 2023 12:00a m [facility] rubén 2023 4:22p m Cyclobenzap rine 10 mg tablet Discont inued 10 MG PO Daily at bedtime 30 30 Octobe r 2023 12:00a m Novem rubén 2023 10:38 am Cephalexin 500 mg capsule Active 500 MG PO Four times daily February 01, 2025 12:00a m Complies with drug therapy Warfarin 5 mg tablet Active 5 MG PO Daily February 01, 2025 12:00a m Complies with drug therapy Quetiapine 100 mg tablet Active 100 MG PO Daily 90 90 February 01, 2025 2:34pm Complies with drug therapy Relevant Diagnostic Tests and/or Laboratory Data Laboratory Results Test Collection Date/Time Result Date/Time Result Interpretation Reference Range Result Comment Performing Site Bedside Hemoglobin A1c November 05, 2024 11:13am November 05, 2024 11:50am 10.1 % Vital Signs Vital Reading Result Reference Range Collection Date/Time Height 71 [in_i] November 05 10:26am Weight 145.60 kg November 05 10:26am Heart Rate 98 /min 60-100 November 05 10:26am Respiratory rate 14 /min -November 05, 2024 10:26am Oxygen saturation by Pulse oximetry 90 % 95-100 November 05, 2024 10: 26am BP Systolic 128 mm[Hg] 100-140 November 05 10:26am BP Diastolic 68 mm[Hg] 60-100 November 05 10:26am BMI (Body Mass Index) 44.7 kg/m2 November 05, 2024 10:26am Height 71 [in_i] February 01, 2025 2:09pm Weight 135.62 kg February 01, 2025 2:09pm Body Temperature 96.5 [degF] 97.6-99.0 February 01, 2025 2:09pm Heart Rate 102 /min 60-100 February 01, 2025 2:09pm Oxygen saturation by Pulse oximetry 96 % 95-100 February 01, 2025 2:09 pm BP Systolic 114 mm[Hg] 100-140 February 01, 2025 2:09pm BP Diastolic 68 mm[Hg] 60-100 February 01, 2025 2:09pm BMI (Body Mass Index) 41.7 kg/m2 January 182024 2:09pm Advance Directives Advance Directive Response Recorded Date/ Time Advance Directives No March 2:40pm Insurance Providers Guarantor Onofre Mckinney Address [address] [address] Contact Info. Home Phone: Payer Policy Id Subscriber's Name Subscriber Id Susan ctive Date Expiration Date [employer] [facility] PFFS [id number] Onofre Mckinney [id number] [employer] Dual [id number] Onofre Mckinney [id number] Regular Insurance [id number] Onofre Mckinney [id number] [facility] [id number] Onofre Mckinney [id number] Encounters Encounter Location(s) Arrival/Admit Date Discharge/Depart Date Provider(s) Departed Physician/Prov ider Office Visit -[facility] November 05, 2024 10:18am November 05, 2024 11:42am Dara Eisenberg APRN CNP Non-patient / Non-visit -[facility] January 27, 2025 8:33am Angelic Blevins CMA Departed Physician/Prov ider Office Visit -[facility] February 01, 2025 2:06pm February 01, 2025 3:08pm Dara Eisenberg APRN CNP Recent Diagnosis Onset Date Admit Date Atrial flutter Unknown November 05, 2024 10:18am Chronic back pain Unknown November 05 10:18am COPD (chronic obstructive pulmonary disease) Unk nown November 05, 2024 10:18am Heart failure Unknown November 05, 2024 10:18am Hypertension Unknown November 05, 2024 10:18am Mixed hyperlipidemia Unknown November 05, 2024 10:18am Nicotine dependence Unknown November 05, 2024 10:18am Non-compliance Unknown November 05, 2024 10:18am Non-healing wound of left lower extremity Unknow n November 05, 2024 10:18am Non-healing wound of right lower extremity Unkno wn November 05, 2024 10:18am Oxygen dependent Unknown November 05 10:18am Right sided sciatica Unknown November 05, 2024 10:18am Sleep disturbance Unknown November 05 10:18am Status post partial amputation of right foot Unk nown November 05, 2024 10:18am Type 2 diabetes mellitus Unknown October 192024 10:18am Venous insufficiency (chronic) (peripheral) Unkn own November 05, 2024 10:18am Assessments Diagnosis Onset Date Resolution Status Admit Date Atrial flutter acute October 10:18am Chronic back pain acute October 192024 10:18am COPD (chronic obstructive pulmonary disease) acute November 05, 2 025 10:18am Heart failure acute November 05, 2024 10:18am Hypertension acute November 05, 2024 10:18am Mixed hyperlipidemia acute Apri l 2024 10:18am Nicotine dependence acute November 05, 2024 10:18am Non-compliance acute October 10:18am Non-healing wound of left lo wer extremity acute November 05, 2024 10:18am Non-healing wound of right l ower extremity acute November 05, 2024 10:18am Oxygen dependent acute November 052024 10:18am Right sided sciatica acute Apri l 2024 10:18am Sleep disturbance acute October 192024 10:18am Status post partial amputati on of right foot acute November 05, 2024 10:18am Type 2 diabetes mellitus acute November 05, 2024 10:18am Venous insufficiency (chroni c) (peripheral) acute November 05, 2024 10:18am Plan of Treatment [facility] Authored November 08, 2024 9:2 7am A1c 10.1 Currently on Glipizide and Lantus Patient is advised to work on healthy diet choices and appropriate servings, weight control, regular exercise as directed, reduced fat intake, and salt avoidance. Patient voiced understanding of this and agrees to this plan. Prior to your visit today we reviewed your chart and outlined the testing and treatment needed for your care. We discussed possible complications of diabetes including risk of heart disease, stroke, and kidney disease. Your goal is to keep your HgA1C below 7 (preferably <6.5) and your blood pressure less than 130/85 (and preferably < 120/80) and maintaining a healthy weight with a BMI less than 26. We are working together to achieve these goals with the following plan; healthier diet, understanding your medications, and your compliance. Barriers to these goals have been discussed. To goal. Continue on Metoprolol Prior to your visit today we reviewed your chart and outlined the testing and treatment needed for your care. We discussed the possible complications of high blood pressure, including increased risk for heart disease, stroke, and kidney disease. Our goal is to keep your blood pressure below 130/85 (an preferably < 120/80) and maintain a healthy weight with a BMI less than 26. We are working together to achieve these goals with the following plan; healthier diet, increased activity and exercise, understanding your medications, and your compliance. Notes that he was never diagnosed with COPD, he is a chronic smoker. He does wear oxygen while at home and at night. Risk of medical noncompliance explained to patient, including CVA, HI, kidney damage, even sudden . We discussed possible complications of smoking including risk of heart disease, stroke, lung disease, and increase risk of cancer. Your goal is to quit smoking. The availability, risks, and benefits of medication used to treat nicotine addiction as relevant to you have been discussed. We are working together to achieve these goals with the following plan; barriers to these goals have been discussed. You have been given relevant education handouts and a summary of your care plan. Your next follow-up visit for this problem is six months, we will continue to ask progress for quitting and willingness to quit at each appointment. He has not followed up with Dr. Curtis since his hospitalization. This is completely healed and surgical incision is well approximated without signs of infection. Continue on atorvastatin. Lipid panel reviewed with patient. Discussed importance of maintaining an LDL level at specified goal. Discussed associated risk factors of hyperlipidemia including stroke and heart attack. Treatment with medications discussed and we have agrees upon appropriate action of treatment and goals. Discussed dietary modifications, including decreasing red meat consumption, decreased alcohol consumption, avoiding fried foods, and cake and cookies, and sweets. Encouraged increasing fiber in diet and eat a diet rich in omega-3. Encouraged to exercise at least 150 minutes weekly. Barriers to plan of care have been addressed. Follow-up as directed. Patient given a copy of the plan of care. Referral sent to pain management for further evaluation and evaluate the need for continued gabapentin. Discussed with pt will given him a 10 day supply to get him to his appointment with pain management. That I will no longer be prescribing this and that he will need a further work-up through pain management and that pain management can take this over if they feel that he needs to continue this medication. Discussed with pt that he needs to take this as prescribed and that he is to not take more than he is prescribed. He verbalizes understanding. OARRS was checked. Examined wounds in the office today, dressings changed. Referral placed to the wound care clinic at the [facility] for further treatment. Called Dr. Alegre office and left a message to get an appointment for follow-up. He is currently on Metoprolol, heart rate is controlled. Unaware of palpitations, or shortness of breath. No chest pain. He is currency taking Eliquis. Continue Lasix. Discussed definition of heart failure as well as etiology, treatments, and medications relating to decreasing heart failure exacerbations in the future. Encouraged patient to weigh self every morning before breakfast and inform sales manager prearranged funerals if weight increases more than 2 pounds in a day or 5 pounds in a week. Patient is also to inform provider if increase in shortness of breath, increased swelling in feet ankles or legs or lightheaded or dizziness occurs. Patient is to get to the nearest emergency room if there is increased shortness of breath that does not go away while sitting still, fast heartbeat that does not slow down, any chest pain or if fainting occurs. He has been taking Seroquel with good results. Denies any side effects. Pt to continue Future Tests Future scheduled test information is unavailable Pending Tests Pending diagnostic test information is unavailable Future Visits Future appointment information is unavailable Referrals to Other Providers Referral information is unavailable Future Procedures Future procedure information is unavailable Future Medications Future medication information is unavailable Patient Instructions Patient instructions are unavailable
--- OUTSIDE RECORDS SUMMARY | 2025-02-10 12:59 | XMS_ITS ---
Author Name Auto Generated, Auto Generated Organization [facility] Address [address] [place] [address] Phone [phone] Care Team Providers Care Biometrics Instructor Name Role Phone Saud Finch Unavailable [phone] Brit Myers Unavailable [phone] Saud Myersa Unavailable [phone] Functional Status No Results Mental Status No Results Allergies and Intolerances No Known Allergies Encounters Program Name Primary Diagnosis Admission Date/Time Dis charge Date/Time Home-based Hospice Encounter for pallia tive care [place] Aug 22 19:00:00 EST 2024 Problems Active Concerns * Encounter for palliative care* Code: * Start Date: FriApr 20 00:00:00 EDT 2012 * End Date: * Text: * Acute and chronic respiratory failure, unspecified whether with hypoxia or hypercapnia* Code: * Start Date: FriAug 24 00:00:00 EST 2024 * End Date: * Text: Reason for Referral Past Medical History
--- OUTSIDE RECORDS SUMMARY | 2025-02-10 12:59 | XMS_ITS ---
Author Name Auto Generated, Auto Generated Organization [facility] Address [address] [place] [address] Phone [phone] Care Team Providers Care Machine Rough Rounder Name Role Phone Saud Finch Unavailable [phone] Brit Myers Unavailable [phone] Saud Myersa Unavailable [phone] Functional Status No Results Mental Status No Results Allergies and Intolerances No Known Allergies Encounters Program Name Primary Diagnosis Admission Date/Time Dis charge Date/Time Home-based Hospice Encounter for pallia tive care [place] Aug 22 19:00:00 EST 2024 Problems Active [...]
--- OUTSIDE RECORDS SUMMARY | 2025-02-10 13:01 | XMS_ITS | Patient Health Record ---
Author Organization [facility] in [place] Address [address] [place] [address] Care Team Providers Care Psychiatric Cns Name Role Phone Dara Eisenberg CNP Primary Care Provider U Curt Prado Unavailable [phone] Kylah Leigh Unavailable [phone] Results Component Value Reference Range Notes Gram Stain Result (Not yet r eviewed by provider) Interpretation: Performing Lab: Notes/Report: [facility] , Gram Stain Result See Below For Report Gram Stain Result Gram Stain Result No white blood cells seen. 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 Performing Lab: see note LC - [facility] LB Tissue Culture (Not yet revi ewed by provider) Interpretation: Performing Lab: Notes/Report: [facility] , Tissue Culture See Below For Report Tissue Culture O:ENTFAC Isolated O:STAAUR Isolated Organism: 3.1 Antibiotic Interpretation CHEN Status Penicillin Penicillin S F Vancomycin Vancomycin S F Organism: 3.2 Antibiotic Interpretation CHEN Status Ciprofloxacin Ciprofloxacin R F Clindamycin Clindamycin S F Erythromycin Erythromycin R F Gentamicin Gentamicin S F Levofloxacin Levofloxacin I F Linezolid Linezolid S F Oxacillin Oxacillin R F Penicillin Penicillin R F Rifampin Rifampin S F Tetracycline Tetracycline S F Trimethoprim/Sulfametho xazole Trimethoprim/Sulfametho xazole S F Vancomycin Vancomycin S F Tissue Culture Organism: Staphylococcus aureus : Tissue Culture O:ENTFAC Isolated O:STAAUR Isolated Organism: 3.1 Antibiotic Interpretation CHEN Status Penicillin Penicillin S F Vancomycin Vancomycin S F Organism: 3.2 Antibiotic Interpretation CHEN Status Ciprofloxacin Ciprofloxacin R F Clindamycin Clindamycin S F Erythromycin Erythromycin R F Gentamicin Gentamicin S F Levofloxacin Levofloxacin I F Linezolid Linezolid S F Oxacillin Oxacillin R F Penicillin Penicillin R F Rifampin Rifampin S F Tetracycline Tetracycline S F Trimethoprim/Sulfametho xazole Trimethoprim/Sulfametho xazole S F Vancomycin Vancomycin S F Tissue Culture *ABNORMAL* Tissue Culture O:ENTFAC Isolated O:STAAUR Isolated Organism: 3.1 Antibiotic Interpretation CHEN Status Penicillin Penicillin S F Vancomycin Vancomycin S F Organism: 3.2 Antibiotic Interpretation CHEN Status Ciprofloxacin Ciprofloxacin R F Clindamycin Clindamycin S F Erythromycin Erythromycin R F Gentamicin Gentamicin S F Levofloxacin Levofloxacin I F Linezolid Linezolid S F Oxacillin Oxacillin R F Penicillin Penicillin R F Rifampin Rifampin S F Tetracycline Tetracycline S F Trimethoprim/Sulfametho xazole Trimethoprim/Sulfametho xazole S F Vancomycin Vancomycin S F Tissue Culture Scant growth Tissue Culture O:ENTFAC Isolated O:STAAUR Isolated Organism: 3.1 Antibiotic Interpretation CHEN Status Penicillin Penicillin S F Vancomycin Vancomycin S F Organism: 3.2 Antibiotic Interpretation CHEN Status Ciprofloxacin Ciprofloxacin R F Clindamycin Clindamycin S F Erythromycin Erythromycin R F Gentamicin Gentamicin S F Levofloxacin Levofloxacin I F Linezolid Linezolid S F Oxacillin Oxacillin R F Penicillin Penicillin R F Rifampin Rifampin S F Tetracycline Tetracycline S F Trimethoprim/Sulfametho xazole Trimethoprim/Sulfametho xazole S F Vancomycin Vancomycin S F Tissue Culture CALLED TO JERILYN Rodriguez ON 03/31/24 @ 0750 Tissue Culture O:ENTFAC Isolated O:STAAUR Isolated Organism: 3.1 Antibiotic Interpretation CHEN Status Penicillin Penicillin S F Vancomycin Vancomycin S F Organism: 3.2 Antibiotic Interpretation CHEN Status Ciprofloxacin Ciprofloxacin R F Clindamycin Clindamycin S F Erythromycin Erythromycin R F Gentamicin Gentamicin S F Levofloxacin Levofloxacin I F Linezolid Linezolid S F Oxacillin Oxacillin R F Penicillin Penicillin R F Rifampin Rifampin S F Tetracycline Tetracycline S F Trimethoprim/Sulfametho xazole Trimethoprim/Sulfametho xazole S F Vancomycin Vancomycin S F Tissue Culture Staphylococcus aureus Tissue Culture O:ENTFAC Isolated O:STAAUR Isolated Organism: 3.1 Antibiotic Interpretation CHEN Status Penicillin Penicillin S F Vancomycin Vancomycin S F Organism: 3.2 Antibiotic Interpretation CHEN Status Ciprofloxacin Ciprofloxacin R F Clindamycin Clindamycin S F Erythromycin Erythromycin R F Gentamicin Gentamicin S F Levofloxacin Levofloxacin I F Linezolid Linezolid S F Oxacillin Oxacillin R F Penicillin Penicillin R F Rifampin Rifampin S F Tetracycline Tetracycline S F Trimethoprim/Sulfametho xazole Trimethoprim/Sulfametho xazole S F Vancomycin Vancomycin S F Tissue Culture Based on resistance to oxacillin this isolate would be Tissue Culture O:ENTFAC Isolated O:STAAUR Isolated Organism: 3.1 Antibiotic Interpretation CHEN Status Penicillin Penicillin S F Vancomycin Vancomycin S F Organism: 3.2 Antibiotic Interpretation CHEN Status Ciprofloxacin Ciprofloxacin R F Clindamycin Clindamycin S F Erythromycin Erythromycin R F Gentamicin Gentamicin S F Levofloxacin Levofloxacin I F Linezolid Linezolid S F Oxacillin Oxacillin R F Penicillin Penicillin R F Rifampin Rifampin S F Tetracycline Tetracycline S F Trimethoprim/Sulfametho xazole Trimethoprim/Sulfametho xazole S F Vancomycin Vancomycin S F Tissue Culture resistant to Tissue Culture O:ENTFAC Isolated O:STAAUR Isolated Organism: 3.1 Antibiotic Interpretation CHEN Status Penicillin Penicillin S F Vancomycin Vancomycin S F Organism: 3.2 Antibiotic Interpretation CHEN Status Ciprofloxacin Ciprofloxacin R F Clindamycin Clindamycin S F Erythromycin Erythromycin R F Gentamicin Gentamicin S F Levofloxacin Levofloxacin I F Linezolid Linezolid S F Oxacillin Oxacillin R F Penicillin Penicillin R F Rifampin Rifampin S F Tetracycline Tetracycline S F Trimethoprim/Sulfametho xazole Trimethoprim/Sulfametho xazole S F Vancomycin Vancomycin S F Tissue Culture all currently availa ble beta-lactam antimicrobial agents, Tissue Culture O:ENTFAC Isolated O:STAAUR Isolated Organism: 3.1 Antibiotic Interpretation CHEN Status Penicillin Penicillin S F Vancomycin Vancomycin S F Organism: 3.2 Antibiotic Interpretation CHEN Status Ciprofloxacin Ciprofloxacin R F Clindamycin Clindamycin S F Erythromycin Erythromycin R F Gentamicin Gentamicin S F Levofloxacin Levofloxacin I F Linezolid Linezolid S F Oxacillin Oxacillin R F Penicillin Penicillin R F Rifampin Rifampin S F Tetracycline Tetracycline S F Trimethoprim/Sulfametho xazole Trimethoprim/Sulfametho xazole S F Vancomycin Vancomycin S F Tissue Culture with the Tissue Culture O:ENTFAC Isolated O:STAAUR Isolated Organism: 3.1 Antibiotic Interpretation CHEN Status Penicillin Penicillin S F Vancomycin Vancomycin S F Organism: 3.2 Antibiotic Interpretation CHEN Status Ciprofloxacin Ciprofloxacin R F Clindamycin Clindamycin S F Erythromycin Erythromycin R F Gentamicin Gentamicin S F Levofloxacin Levofloxacin I F Linezolid Linezolid S F Oxacillin Oxacillin R F Penicillin Penicillin R F Rifampin Rifampin S F Tetracycline Tetracycline S F Trimethoprim/Sulfametho xazole Trimethoprim/Sulfametho xazole S F Vancomycin Vancomycin S F Tissue Culture exception of the new er cephalosporins with anti-MRSA Tissue Culture O:ENTFAC Isolated O:STAAUR Isolated Organism: 3.1 Antibiotic Interpretation CHEN Status Penicillin Penicillin S F Vancomycin Vancomycin S F Organism: 3.2 Antibiotic Interpretation CHEN Status Ciprofloxacin Ciprofloxacin R F Clindamycin Clindamycin S F Erythromycin Erythromycin R F Gentamicin Gentamicin S F Levofloxacin Levofloxacin I F Linezolid Linezolid S F Oxacillin Oxacillin R F Penicillin Penicillin R F Rifampin Rifampin S F Tetracycline Tetracycline S F Trimethoprim/Sulfametho xazole Trimethoprim/Sulfametho xazole S F Vancomycin Vancomycin S F Tissue Culture activity, such as Tissue Culture O:ENTFAC Isolated O:STAAUR Isolated Organism: 3.1 Antibiotic Interpretation CHEN Status Penicillin Penicillin S F Vancomycin Vancomycin S F Organism: 3.2 Antibiotic Interpretation CHEN Status Ciprofloxacin Ciprofloxacin R F Clindamycin Clindamycin S F Erythromycin Erythromycin R F Gentamicin Gentamicin S F Levofloxacin Levofloxacin I F Linezolid Linezolid S F Oxacillin Oxacillin R F Penicillin Penicillin R F Rifampin Rifampin S F Tetracycline Tetracycline S F Trimethoprim/Sulfametho xazole Trimethoprim/Sulfametho xazole S F Vancomycin Vancomycin S F Tissue Culture Ceftaroline Tissue Culture O:ENTFAC Isolated O:STAAUR Isolated Organism: 3.1 Antibiotic Interpretation CHEN Status Penicillin Penicillin S F Vancomycin Vancomycin S F Organism: 3.2 Antibiotic Interpretation CHEN Status Ciprofloxacin Ciprofloxacin R F Clindamycin Clindamycin S F Erythromycin Erythromycin R F Gentamicin Gentamicin S F Levofloxacin Levofloxacin I F Linezolid Linezolid S F Oxacillin Oxacillin R F Penicillin Penicillin R F Rifampin Rifampin S F Tetracycline Tetracycline S F Trimethoprim/Sulfametho xazole Trimethoprim/Sulfametho xazole S F Vancomycin Vancomycin S F Tissue Culture Tissue Culture O:ENTFAC Isolated O:STAAUR Isolated Organism: 3.1 Antibiotic Interpretation CHEN Status Penicillin Penicillin S F Vancomycin Vancomycin S F Organism: 3.2 Antibiotic Interpretation CHEN Status Ciprofloxacin Ciprofloxacin R F Clindamycin Clindamycin S F Erythromycin Erythromycin R F Gentamicin Gentamicin S F Levofloxacin Levofloxacin I F Linezolid Linezolid S F Oxacillin Oxacillin R F Penicillin Penicillin R F Rifampin Rifampin S F Tetracycline Tetracycline S F Trimethoprim/Sulfametho xazole Trimethoprim/Sulfametho xazole S F Vancomycin Vancomycin S F Tissue Culture Enterococcus faecalis Tissue Culture O:ENTFAC Isolated O:STAAUR Isolated Organism: 3.1 Antibiotic Interpretation CHEN Status Penicillin Penicillin S F Vancomycin Vancomycin S F Organism: 3.2 Antibiotic Interpretation CHEN Status Ciprofloxacin Ciprofloxacin R F Clindamycin Clindamycin S F Erythromycin Erythromycin R F Gentamicin Gentamicin S F Levofloxacin Levofloxacin I F Linezolid Linezolid S F Oxacillin Oxacillin R F Penicillin Penicillin R F Rifampin Rifampin S F Tetracycline Tetracycline S F Trimethoprim/Sulfametho xazole Trimethoprim/Sulfametho xazole S F Vancomycin Vancomycin S F Tissue Culture *ABNORMAL* Tissue Culture O:ENTFAC Isolated O:STAAUR Isolated Organism: 3.1 Antibiotic Interpretation CHEN Status Penicillin Penicillin S F Vancomycin Vancomycin S F Organism: 3.2 Antibiotic Interpretation CHEN Status Ciprofloxacin Ciprofloxacin R F Clindamycin Clindamycin S F Erythromycin Erythromycin R F Gentamicin Gentamicin S F Levofloxacin Levofloxacin I F Linezolid Linezolid S F Oxacillin Oxacillin R F Penicillin Penicillin R F Rifampin Rifampin S F Tetracycline Tetracycline S F Trimethoprim/Sulfametho xazole Trimethoprim/Sulfametho xazole S F Vancomycin Vancomycin S F Tissue Culture Scant growth Tissue Culture O:ENTFAC Isolated O:STAAUR Isolated Organism: 3.1 Antibiotic Interpretation CHEN Status Penicillin Penicillin S F Vancomycin Vancomycin S F Organism: 3.2 Antibiotic Interpretation CHEN Status Ciprofloxacin Ciprofloxacin R F Clindamycin Clindamycin S F Erythromycin Erythromycin R F Gentamicin Gentamicin S F Levofloxacin Levofloxacin I F Linezolid Linezolid S F Oxacillin Oxacillin R F Penicillin Penicillin R F Rifampin Rifampin S F Tetracycline Tetracycline S F Trimethoprim/Sulfametho xazole Trimethoprim/Sulfametho xazole S F Vancomycin Vancomycin S F Tissue Culture The susceptible category for ampicillin, penicillin or Tissue Culture O:ENTFAC Isolated O:STAAUR Isolated Organism: 3.1 Antibiotic Interpretation CHEN Status Penicillin Penicillin S F Vancomycin Vancomycin S F Organism: 3.2 Antibiotic Interpretation CHEN Status Ciprofloxacin Ciprofloxacin R F Clindamycin Clindamycin S F Erythromycin Erythromycin R F Gentamicin Gentamicin S F Levofloxacin Levofloxacin I F Linezolid Linezolid S F Oxacillin Oxacillin R F Penicillin Penicillin R F Rifampin Rifampin S F Tetracycline Tetracycline S F Trimethoprim/Sulfametho xazole Trimethoprim/Sulfametho xazole S F Vancomycin Vancomycin S F Tissue Culture vancomycin Tissue Culture O:ENTFAC Isolated O:STAAUR Isolated Organism: 3.1 Antibiotic Interpretation CHEN Status Penicillin Penicillin S F Vancomycin Vancomycin S F Organism: 3.2 Antibiotic Interpretation CHEN Status Ciprofloxacin Ciprofloxacin R F Clindamycin Clindamycin S F Erythromycin Erythromycin R F Gentamicin Gentamicin S F Levofloxacin Levofloxacin I F Linezolid Linezolid S F Oxacillin Oxacillin R F Penicillin Penicillin R F Rifampin Rifampin S F Tetracycline Tetracycline S F Trimethoprim/Sulfametho xazole Trimethoprim/Sulfametho xazole S F Vancomycin Vancomycin S F Tissue Culture implies the need for combination therapy with an Tissue Culture O:ENTFAC Isolated O:STAAUR Isolated Organism: 3.1 Antibiotic Interpretation CHEN Status Penicillin Penicillin S F Vancomycin Vancomycin S F Organism: 3.2 Antibiotic Interpretation CHEN Status Ciprofloxacin Ciprofloxacin R F Clindamycin Clindamycin S F Erythromycin Erythromycin R F Gentamicin Gentamicin S F Levofloxacin Levofloxacin I F Linezolid Linezolid S F Oxacillin Oxacillin R F Penicillin Penicillin R F Rifampin Rifampin S F Tetracycline Tetracycline S F Trimethoprim/Sulfametho xazole Trimethoprim/Sulfametho xazole S F Vancomycin Vancomycin S F Tissue Culture aminoglycoside for Tissue Culture O:ENTFAC Isolated O:STAAUR Isolated Organism: 3.1 Antibiotic Interpretation CHEN Status Penicillin Penicillin S F Vancomycin Vancomycin S F Organism: 3.2 Antibiotic Interpretation CHEN Status Ciprofloxacin Ciprofloxacin R F Clindamycin Clindamycin S F Erythromycin Erythromycin R F Gentamicin Gentamicin S F Levofloxacin Levofloxacin I F Linezolid Linezolid S F Oxacillin Oxacillin R F Penicillin Penicillin R F Rifampin Rifampin S F Tetracycline Tetracycline S F Trimethoprim/Sulfametho xazole Trimethoprim/Sulfametho xazole S F Vancomycin Vancomycin S F Tissue Culture serious enterococcal infections, such as endocarditis Tissue Culture O:ENTFAC Isolated O:STAAUR Isolated Organism: 3.1 Antibiotic Interpretation CHEN Status Penicillin Penicillin S F Vancomycin Vancomycin S F Organism: 3.2 Antibiotic Interpretation CHEN Status Ciprofloxacin Ciprofloxacin R F Clindamycin Clindamycin S F Erythromycin Erythromycin R F Gentamicin Gentamicin S F Levofloxacin Levofloxacin I F Linezolid Linezolid S F Oxacillin Oxacillin R F Penicillin Penicillin R F Rifampin Rifampin S F Tetracycline Tetracycline S F Trimethoprim/Sulfametho xazole Trimethoprim/Sulfametho xazole S F Vancomycin Vancomycin S F Tissue Culture (unless Tissue Culture O:ENTFAC Isolated O:STAAUR Isolated Organism: 3.1 Antibiotic Interpretation CHEN Status Penicillin Penicillin S F Vancomycin Vancomycin S F Organism: 3.2 Antibiotic Interpretation CHEN Status Ciprofloxacin Ciprofloxacin R F Clindamycin Clindamycin S F Erythromycin Erythromycin R F Gentamicin Gentamicin S F Levofloxacin Levofloxacin I F Linezolid Linezolid S F Oxacillin Oxacillin R F Penicillin Penicillin R F Rifampin Rifampin S F Tetracycline Tetracycline S F Trimethoprim/Sulfametho xazole Trimethoprim/Sulfametho xazole S F Vancomycin Vancomycin S F Tissue Culture high-level resistanc e to both gentamicin and streptomycin is Tissue Culture O:ENTFAC Isolated O:STAAUR Isolated Organism: 3.1 Antibiotic Interpretation CHEN Status Penicillin Penicillin S F Vancomycin Vancomycin S F Organism: 3.2 Antibiotic Interpretation CHEN Status Ciprofloxacin Ciprofloxacin R F Clindamycin Clindamycin S F Erythromycin Erythromycin R F Gentamicin Gentamicin S F Levofloxacin Levofloxacin I F Linezolid Linezolid S F Oxacillin Oxacillin R F Penicillin Penicillin R F Rifampin Rifampin S F Tetracycline Tetracycline S F Trimethoprim/Sulfametho xazole Trimethoprim/Sulfametho xazole S F Vancomycin Vancomycin S F Tissue Culture determined). Such combinations are predicted to result in Tissue Culture O:ENTFAC Isolated O:STAAUR Isolated Organism: 3.1 Antibiotic Interpretation CHEN Status Penicillin Penicillin S F Vancomycin Vancomycin S F Organism: 3.2 Antibiotic Interpretation CHEN Status Ciprofloxacin Ciprofloxacin R F Clindamycin Clindamycin S F Erythromycin Erythromycin R F Gentamicin Gentamicin S F Levofloxacin Levofloxacin I F Linezolid Linezolid S F Oxacillin Oxacillin R F Penicillin Penicillin R F Rifampin Rifampin S F Tetracycline Tetracycline S F Trimethoprim/Sulfametho xazole Trimethoprim/Sulfametho xazole S F Vancomycin Vancomycin S F Tissue Culture synergistic Tissue Culture O:ENTFAC Isolated O:STAAUR Isolated Organism: 3.1 Antibiotic Interpretation CHEN Status Penicillin Penicillin S F Vancomycin Vancomycin S F Organism: 3.2 Antibiotic Interpretation CHEN Status Ciprofloxacin Ciprofloxacin R F Clindamycin Clindamycin S F Erythromycin Erythromycin R F Gentamicin Gentamicin S F Levofloxacin Levofloxacin I F Linezolid Linezolid S F Oxacillin Oxacillin R F Penicillin Penicillin R F Rifampin Rifampin S F Tetracycline Tetracycline S F Trimethoprim/Sulfametho xazole Trimethoprim/Sulfametho xazole S F Vancomycin Vancomycin S F Tissue Culture killing of the enterococcus. (CLSI) Tissue Culture O:ENTFAC Isolated O:STAAUR Isolated Organism: 3.1 Antibiotic Interpretation CHEN Status Penicillin Penicillin S F Vancomycin Vancomycin S F Organism: 3.2 Antibiotic Interpretation CHEN Status Ciprofloxacin Ciprofloxacin R F Clindamycin Clindamycin S F Erythromycin Erythromycin R F Gentamicin Gentamicin S F Levofloxacin Levofloxacin I F Linezolid Linezolid S F Oxacillin Oxacillin R F Penicillin Penicillin R F Rifampin Rifampin S F Tetracycline Tetracycline S F Trimethoprim/Sulfametho xazole Trimethoprim/Sulfametho xazole S F Vancomycin Vancomycin S F Tissue Culture See Below For Report Tissue Culture O:ENTFAC Isolated O:STAAUR Isolated Organism: 3.1 Antibiotic Interpretation CHEN Status Penicillin Penicillin S F Vancomycin Vancomycin S F Organism: 3.2 Antibiotic Interpretation CHEN Status Ciprofloxacin Ciprofloxacin R F Clindamycin Clindamycin S F Erythromycin Erythromycin R F Gentamicin Gentamicin S F Levofloxacin Levofloxacin I F Linezolid Linezolid S F Oxacillin Oxacillin R F Penicillin Penicillin R F Rifampin Rifampin S F Tetracycline Tetracycline S F Trimethoprim/Sulfametho xazole Trimethoprim/Sulfametho xazole S F Vancomycin Vancomycin S F Tissue Culture See Below For Report Tissue Culture O:ENTFAC Isolated O:STAAUR Isolated Organism: 3.1 Antibiotic Interpretation CHEN Status Penicillin Penicillin S F Vancomycin Vancomycin S F Organism: 3.2 Antibiotic Interpretation CHEN Status Ciprofloxacin Ciprofloxacin R F Clindamycin Clindamycin S F Erythromycin Erythromycin R F Gentamicin Gentamicin S F Levofloxacin Levofloxacin I F Linezolid Linezolid S F Oxacillin Oxacillin R F Penicillin Penicillin R F Rifampin Rifampin S F Tetracycline Tetracycline S F Trimethoprim/Sulfametho xazole Trimethoprim/Sulfametho xazole S F Vancomycin Vancomycin S F Tissue Culture See Below For Report Tissue Culture O:ENTFAC Isolated O:STAAUR Isolated Organism: 3.1 Antibiotic Interpretation CHEN Status Penicillin Penicillin S F Vancomycin Vancomycin S F Organism: 3.2 Antibiotic Interpretation CHEN Status Ciprofloxacin Ciprofloxacin R F Clindamycin Clindamycin S F Erythromycin Erythromycin R F Gentamicin Gentamicin S F Levofloxacin Levofloxacin I F Linezolid Linezolid S F Oxacillin Oxacillin R F Penicillin Penicillin R F Rifampin Rifampin S F Tetracycline Tetracycline S F Trimethoprim/Sulfametho xazole Trimethoprim/Sulfametho xazole S F Vancomycin Vancomycin S F Tissue Culture See Below For Report Tissue Culture O:ENTFAC Isolated O:STAAUR Isolated Organism: 3.1 Antibiotic Interpretation CHEN Status Penicillin Penicillin S F Vancomycin Vancomycin S F Organism: 3.2 Antibiotic Interpretation CHEN Status Ciprofloxacin Ciprofloxacin R F Clindamycin Clindamycin S F Erythromycin Erythromycin R F Gentamicin Gentamicin S F Levofloxacin Levofloxacin I F Linezolid Linezolid S F Oxacillin Oxacillin R F Penicillin Penicillin R F Rifampin Rifampin S F Tetracycline Tetracycline S F Trimethoprim/Sulfametho xazole Trimethoprim/Sulfametho xazole S F Vancomycin Vancomycin S F Tissue Culture See Below For Report Tissue Culture O:ENTFAC Isolated O:STAAUR Isolated Organism: 3.1 Antibiotic Interpretation CHEN Status Penicillin Penicillin S F Vancomycin Vancomycin S F Organism: 3.2 Antibiotic Interpretation CHEN Status Ciprofloxacin Ciprofloxacin R F Clindamycin Clindamycin S F Erythromycin Erythromycin R F Gentamicin Gentamicin S F Levofloxacin Levofloxacin I F Linezolid Linezolid S F Oxacillin Oxacillin R F Penicillin Penicillin R F Rifampin Rifampin S F Tetracycline Tetracycline S F Trimethoprim/Sulfametho xazole Trimethoprim/Sulfametho xazole S F Vancomycin Vancomycin S F Tissue Culture See Below For Report Tissue Culture O:ENTFAC Isolated O:STAAUR Isolated Organism: 3.1 Antibiotic Interpretation CHEN Status Penicillin Penicillin S F Vancomycin Vancomycin S F Organism: 3.2 Antibiotic Interpretation CHEN Status Ciprofloxacin Ciprofloxacin R F Clindamycin Clindamycin S F Erythromycin Erythromycin R F Gentamicin Gentamicin S F Levofloxacin Levofloxacin I F Linezolid Linezolid S F Oxacillin Oxacillin R F Penicillin Penicillin R F Rifampin Rifampin S F Tetracycline Tetracycline S F Trimethoprim/Sulfametho xazole Trimethoprim/Sulfametho xazole S F Vancomycin Vancomycin S F Tissue Culture See Below For Report Tissue Culture O:ENTFAC Isolated O:STAAUR Isolated Organism: 3.1 Antibiotic Interpretation CHEN Status Penicillin Penicillin S F Vancomycin Vancomycin S F Organism: 3.2 Antibiotic Interpretation CHEN Status Ciprofloxacin Ciprofloxacin R F Clindamycin Clindamycin S F Erythromycin Erythromycin R F Gentamicin Gentamicin S F Levofloxacin Levofloxacin I F Linezolid Linezolid S F Oxacillin Oxacillin R F Penicillin Penicillin R F Rifampin Rifampin S F Tetracycline Tetracycline S F Trimethoprim/Sulfametho xazole Trimethoprim/Sulfametho xazole S F Vancomycin Vancomycin S F Tissue Culture See Below For Report Tissue Culture O:ENTFAC Isolated O:STAAUR Isolated Organism: 3.1 Antibiotic Interpretation CHEN Status Penicillin Penicillin S F Vancomycin Vancomycin S F Organism: 3.2 Antibiotic Interpretation CHEN Status Ciprofloxacin Ciprofloxacin R F Clindamycin Clindamycin S F Erythromycin Erythromycin R F Gentamicin Gentamicin S F Levofloxacin Levofloxacin I F Linezolid Linezolid S F Oxacillin Oxacillin R F Penicillin Penicillin R F Rifampin Rifampin S F Tetracycline Tetracycline S F Trimethoprim/Sulfametho xazole Trimethoprim/Sulfametho xazole S F Vancomycin Vancomycin S F Tissue Culture See Below For Report Tissue Culture O:ENTFAC Isolated O:STAAUR Isolated Organism: 3.1 Antibiotic Interpretation CHEN Status Penicillin Penicillin S F Vancomycin Vancomycin S F Organism: 3.2 Antibiotic Interpretation CHEN Status Ciprofloxacin Ciprofloxacin R F Clindamycin Clindamycin S F Erythromycin Erythromycin R F Gentamicin Gentamicin S F Levofloxacin Levofloxacin I F Linezolid Linezolid S F Oxacillin Oxacillin R F Penicillin Penicillin R F Rifampin Rifampin S F Tetracycline Tetracycline S F Trimethoprim/Sulfametho xazole Trimethoprim/Sulfametho xazole S F Vancomycin Vancomycin S F Tissue Culture See Below For Report Tissue Culture O:ENTFAC Isolated O:STAAUR Isolated Organism: 3.1 Antibiotic Interpretation CHEN Status Penicillin Penicillin S F Vancomycin Vancomycin S F Organism: 3.2 Antibiotic Interpretation CHEN Status Ciprofloxacin Ciprofloxacin R F Clindamycin Clindamycin S F Erythromycin Erythromycin R F Gentamicin Gentamicin S F Levofloxacin Levofloxacin I F Linezolid Linezolid S F Oxacillin Oxacillin R F Penicillin Penicillin R F Rifampin Rifampin S F Tetracycline Tetracycline S F Trimethoprim/Sulfametho xazole Trimethoprim/Sulfametho xazole S F Vancomycin Vancomycin S F Tissue Culture See Below For Report Tissue Culture O:ENTFAC Isolated O:STAAUR Isolated Organism: 3.1 Antibiotic Interpretation CHEN Status Penicillin Penicillin S F Vancomycin Vancomycin S F Organism: 3.2 Antibiotic Interpretation CHEN Status Ciprofloxacin Ciprofloxacin R F Clindamycin Clindamycin S F Erythromycin Erythromycin R F Gentamicin Gentamicin S F Levofloxacin Levofloxacin I F Linezolid Linezolid S F Oxacillin Oxacillin R F Penicillin Penicillin R F Rifampin Rifampin S F Tetracycline Tetracycline S F Trimethoprim/Sulfametho xazole Trimethoprim/Sulfametho xazole S F Vancomycin Vancomycin S F Tissue Culture See Below For Report Tissue Culture O:ENTFAC Isolated O:STAAUR Isolated Organism: 3.1 Antibiotic Interpretation CHEN Status Penicillin Penicillin S F Vancomycin Vancomycin S F Organism: 3.2 Antibiotic Interpretation CHEN Status Ciprofloxacin Ciprofloxacin R F Clindamycin Clindamycin S F Erythromycin Erythromycin R F Gentamicin Gentamicin S F Levofloxacin Levofloxacin I F Linezolid Linezolid S F Oxacillin Oxacillin R F Penicillin Penicillin R F Rifampin Rifampin S F Tetracycline Tetracycline S F Trimethoprim/Sulfametho xazole Trimethoprim/Sulfametho xazole S F Vancomycin Vancomycin S F Tissue Culture See Below For Report Tissue Culture O:ENTFAC Isolated O:STAAUR Isolated Organism: 3.1 Antibiotic Interpretation CHEN Status Penicillin Penicillin S F Vancomycin Vancomycin S F Organism: 3.2 Antibiotic Interpretation CHEN Status Ciprofloxacin Ciprofloxacin R F Clindamycin Clindamycin S F Erythromycin Erythromycin R F Gentamicin Gentamicin S F Levofloxacin Levofloxacin I F Linezolid Linezolid S F Oxacillin Oxacillin R F Penicillin Penicillin R F Rifampin Rifampin S F Tetracycline Tetracycline S F Trimethoprim/Sulfametho xazole Trimethoprim/Sulfametho xazole S F Vancomycin Vancomycin S F Tissue Culture See Below For Report Tissue Culture O:ENTFAC Isolated O:STAAUR Isolated Organism: 3.1 Antibiotic Interpretation CHEN Status Penicillin Penicillin S F Vancomycin Vancomycin S F Organism: 3.2 Antibiotic Interpretation CHEN Status Ciprofloxacin Ciprofloxacin R F Clindamycin Clindamycin S F Erythromycin Erythromycin R F Gentamicin Gentamicin S F Levofloxacin Levofloxacin I F Linezolid Linezolid S F Oxacillin Oxacillin R F Penicillin Penicillin R F Rifampin Rifampin S F Tetracycline Tetracycline S F Trimethoprim/Sulfametho xazole Trimethoprim/Sulfametho xazole S F Vancomycin Vancomycin S F Tissue Culture See Below For Report Tissue Culture O:ENTFAC Isolated O:STAAUR Isolated Organism: 3.1 Antibiotic Interpretation CHEN Status Penicillin Penicillin S F Vancomycin Vancomycin S F Organism: 3.2 Antibiotic Interpretation CHEN Status Ciprofloxacin Ciprofloxacin R F Clindamycin Clindamycin S F Erythromycin Erythromycin R F Gentamicin Gentamicin S F Levofloxacin Levofloxacin I F Linezolid Linezolid S F Oxacillin Oxacillin R F Penicillin Penicillin R F Rifampin Rifampin S F Tetracycline Tetracycline S F Trimethoprim/Sulfametho xazole Trimethoprim/Sulfametho xazole S F Vancomycin Vancomycin S F Tissue Culture See Below For Report Tissue Culture O:ENTFAC Isolated O:STAAUR Isolated Organism: 3.1 Antibiotic Interpretation CHEN Status Penicillin Penicillin S F Vancomycin Vancomycin S F Organism: 3.2 Antibiotic Interpretation CHEN Status Ciprofloxacin Ciprofloxacin R F Clindamycin Clindamycin S F Erythromycin Erythromycin R F Gentamicin Gentamicin S F Levofloxacin Levofloxacin I F Linezolid Linezolid S F Oxacillin Oxacillin R F Penicillin Penicillin R F Rifampin Rifampin S F Tetracycline Tetracycline S F Trimethoprim/Sulfametho xazole Trimethoprim/Sulfametho xazole S F Vancomycin Vancomycin S F Tissue Culture See Below For Report Tissue Culture O:ENTFAC Isolated O:STAAUR Isolated Organism: 3.1 Antibiotic Interpretation CHEN Status Penicillin Penicillin S F Vancomycin Vancomycin S F Organism: 3.2 Antibiotic Interpretation CHEN Status Ciprofloxacin Ciprofloxacin R F Clindamycin Clindamycin S F Erythromycin Erythromycin R F Gentamicin Gentamicin S F Levofloxacin Levofloxacin I F Linezolid Linezolid S F Oxacillin Oxacillin R F Penicillin Penicillin R F Rifampin Rifampin S F Tetracycline Tetracycline S F Trimethoprim/Sulfametho xazole Trimethoprim/Sulfametho xazole S F Vancomycin Vancomycin S F Tissue Culture See Below For Report Tissue Culture O:ENTFAC Isolated O:STAAUR Isolated Organism: 3.1 Antibiotic Interpretation CHEN Status Penicillin Penicillin S F Vancomycin Vancomycin S F Organism: 3.2 Antibiotic Interpretation CHEN Status Ciprofloxacin Ciprofloxacin R F Clindamycin Clindamycin S F Erythromycin Erythromycin R F Gentamicin Gentamicin S F Levofloxacin Levofloxacin I F Linezolid Linezolid S F Oxacillin Oxacillin R F Penicillin Penicillin R F Rifampin Rifampin S F Tetracycline Tetracycline S F Trimethoprim/Sulfametho xazole Trimethoprim/Sulfametho xazole S F Vancomycin Vancomycin S F Performing Lab: see note LC - [facility] SEE REPORT - Almond Huller Id information not found for OBX-specific theater company producer legend AFB Specimen Processing (Not yet reviewed by provider) Interpretation: Performing Lab: Notes/Report: [facility] , AFB Specimen Processing See Below For Report AFB Specimen Processing AFB Specimen Processing Tissue Grinding AFB Specimen Processing Performing Lab: see note LC - [facility] AFB Specimen Processing (Not yet reviewed by provider) Interpretation: Performing Lab: Notes/Report: Comment right foot [facility] , AFB Specimen Processing See Below For Report AFB Specimen Processing AFB Specimen Processing Tissue Grinding AFB Specimen Processing Performing Lab: see note LC - [facility] Gram Stain Result (Not yet r eviewed by provider) Interpretation: Performing Lab: Notes/Report: [facility] , Gram Stain Result See Below For Report Gram Stain Result Gram Stain Result No white blood cells seen. Gram Stain Result Gram Stain Result Gram Stain Result Gram Stain Result No organisms seen Gram Stain Result Gram Stain Result Performed at: [facility] Gram Stain Result Gram Stain Result [address], [place] [id number] Gram Stain Result Gram Stain Result Linker Up: Yung Saeed PhD, Phone: [phone] Gram Stain Result Performing Lab: see note LC - [facility] SEE REPORT - Almond Huller Id information not found for OBX-specific theater company producer legend AFB Specimen Processing (Not yet reviewed by provider) Interpretation: Performing Lab: Notes/Report: [facility] , AFB Specimen Processing See Below For Report AFB Specimen Processing AFB Specimen Processing Tissue Grinding AFB Specimen Processing Performing Lab: see note LC - [facility] Acid Fast Smear (Not yet rev iewed by provider) Interpretation: Performing Lab: Notes/Report: [facility] , Acid Fast Smear See Below For Report Acid Fast Smear Negative Performing Lab: see note - [facility] LB Acid Fast Culture (Not yet r eviewed by provider) Interpretation: Performing Lab: Notes/Report: [facility] , Acid Fast Culture See Below For Report Acid Fast Culture Specimen has been received and testing has been initiated. Acid Fast Culture Negative Acid Fast Culture Specimen has been received and testing has been initiated. Acid Fast Culture No acid fast bacilli isolated after 6 weeks. Acid Fast Culture Specimen has been received and testing has been initiated. Acid Fast Culture Performed at: [facility] Acid Fast Culture Specimen has been received and testing has been initiated. Acid Fast Culture [address], [place] [id number] Acid Fast Culture Specimen has been received and testing has been initiated. Acid Fast Culture Linker Up: Yung Saeed PhD, Phone: [phone] Acid Fast Culture Specimen has been received and testing has been initiated. Performing Lab: see note [facility] SEE REPORT - Almond Huller Id information not found for OBX-specific theater company producer legend Fungus (Mycology) Culture (N ot yet reviewed by provider) Interpretation: Performing Lab: Notes/Report: [facility] , Fungus (Mycology) Culture See Below For Report Fungus (Mycology) Culture Fungus (Mycology) Culture Culture Report: Fungus (Mycology) Culture Fungus (Mycology) Culture The specimen submitted for fungus culture has been received and Fungus (Mycology) Culture Fungus (Mycology) Culture culture has been initiated. Fungus (Mycology) Culture Fungus (Mycology) Culture No yeast or mold isolated after 4 weeks. Fungus (Mycology) Culture Fungus (Mycology) Culture Performed at: [facility] Fungus (Mycology) Culture Fungus (Mycology) Culture [address], [place] [id number] Fungus (Mycology) Culture Fungus (Mycology) Culture Linker Up: Tyron Saeed PhD, Phone: [phone] Fungus (Mycology) Culture Performing Lab: see note [facility] SEE REPORT - Almond Huller Id information not found for OBX-specific theater company producer legend Gram Stain Result (Not yet r eviewed by provider) Interpretation: Performing Lab: Notes/Report: Specimen Comment: Test(s) Tissue Culture called to JESUS Mathis on 04/10/2024 at Specimen Comment: 13:06 EST [facility] , Gram Stain Result See Below For Report Gram Stain Result Gram Stain Result No white blood cells seen. Gram Stain Result Gram Stain Result Gram Stain Result Gram Stain Result No organisms seen Gram Stain Result Gram Stain Result Performed at: [facility] Gram Stain Result Gram Stain Result [address], [place] [id number] Gram Stain Result Gram Stain Result Linker Up: Yung Saeed PhD, Phone: [phone] Gram Stain Result Performing Lab: see note - [facility] SEE REPORT - Almond Huller Id information not found for OBX-specific theater company producer legend Tissue Culture (Not yet revi ewed by provider) Interpretation: Performing Lab: Notes/Report: Specimen Comment: Test(s) Tissue Culture called to JESUS Mathis on 04/10/2024 at Specimen Comment: 13:06 [facility] , Tissue Culture See Below For Report Tissue Culture O:SERMAR Isolated Organism: 3.1 Antibiotic Interpretation CHEN Status AMOXICILLIN/CLAVULANIC ACID AMOXICILLIN/CLAVULANIC ACID R F Cefazolin Cefazolin R F Cefepime Cefepime S F Ceftriaxone Ceftriaxone S F Cefuroxime Cefuroxime R F Ciprofloxacin Ciprofloxacin S F Ertapenem Ertapenem S F Gentamicin Gentamicin S F Levofloxacin Levofloxacin S F Meropenem Meropenem S F Nitrofurantoin Nitrofurantoin R F Tetracycline Tetracycline S F Tobramycin Tobramycin S F Trimethoprim/Sulfametho xazole Trimethoprim/Sulfametho xazole S F Tissue Culture Organism: Serratia marcescens : Tissue Culture O:SERMAR Isolated Organism: 3.1 Antibiotic Interpretation CHEN Status AMOXICILLIN/CLAVULANIC ACID AMOXICILLIN/CLAVULANIC ACID R F Cefazolin Cefazolin R F Cefepime Cefepime S F Ceftriaxone Ceftriaxone S F Cefuroxime Cefuroxime R F Ciprofloxacin Ciprofloxacin S F Ertapenem Ertapenem S F Gentamicin Gentamicin S F Levofloxacin Levofloxacin S F Meropenem Meropenem S F Nitrofurantoin Nitrofurantoin R F Tetracycline Tetracycline S F Tobramycin Tobramycin S F Trimethoprim/Sulfametho xazole Trimethoprim/Sulfametho xazole S F Tissue Culture *ABNORMAL* Tissue Culture O:SERMAR Isolated Organism: 3.1 Antibiotic Interpretation CHEN Status AMOXICILLIN/CLAVULANIC ACID AMOXICILLIN/CLAVULANIC ACID R F Cefazolin Cefazolin R F Cefepime Cefepime S F Ceftriaxone Ceftriaxone S F Cefuroxime Cefuroxime R F Ciprofloxacin Ciprofloxacin S F Ertapenem Ertapenem S F Gentamicin Gentamicin S F Levofloxacin Levofloxacin S F Meropenem Meropenem S F Nitrofurantoin Nitrofurantoin R F Tetracycline Tetracycline S F Tobramycin Tobramycin S F Trimethoprim/Sulfametho xazole Trimethoprim/Sulfametho xazole S F Tissue Culture Light growth Tissue Culture O:SERMAR Isolated Organism: 3.1 Antibiotic Interpretation CHEN Status AMOXICILLIN/CLAVULANIC ACID AMOXICILLIN/CLAVULANIC ACID R F Cefazolin Cefazolin R F Cefepime Cefepime S F Ceftriaxone Ceftriaxone S F Cefuroxime Cefuroxime R F Ciprofloxacin Ciprofloxacin S F Ertapenem Ertapenem S F Gentamicin Gentamicin S F Levofloxacin Levofloxacin S F Meropenem Meropenem S F Nitrofurantoin Nitrofurantoin R F Tetracycline Tetracycline S F Tobramycin Tobramycin S F Trimethoprim/Sulfametho xazole Trimethoprim/Sulfametho xazole S F Tissue Culture Tissue Culture O:SERMAR Isolated Organism: 3.1 Antibiotic Interpretation CHEN Status AMOXICILLIN/CLAVULANIC ACID AMOXICILLIN/CLAVULANIC ACID R F Cefazolin Cefazolin R F Cefepime Cefepime S F Ceftriaxone Ceftriaxone S F Cefuroxime Cefuroxime R F Ciprofloxacin Ciprofloxacin S F Ertapenem Ertapenem S F Gentamicin Gentamicin S F Levofloxacin Levofloxacin S F Meropenem Meropenem S F Nitrofurantoin Nitrofurantoin R F Tetracycline Tetracycline S F Tobramycin Tobramycin S F Trimethoprim/Sulfametho xazole Trimethoprim/Sulfametho xazole S F Tissue Culture CALLED AND HAD PRELI M READ BACK BY Delfina LEE ON 04-10-24 @ Tissue Culture O:SERMAR Isolated Organism: 3.1 Antibiotic Interpretation CHEN Status AMOXICILLIN/CLAVULANIC ACID AMOXICILLIN/CLAVULANIC ACID R F Cefazolin Cefazolin R F Cefepime Cefepime S F Ceftriaxone Ceftriaxone S F Cefuroxime Cefuroxime R F Ciprofloxacin Ciprofloxacin S F Ertapenem Ertapenem S F Gentamicin Gentamicin S F Levofloxacin Levofloxacin S F Meropenem Meropenem S F Nitrofurantoin Nitrofurantoin R F Tetracycline Tetracycline S F Tobramycin Tobramycin S F Trimethoprim/Sulfametho xazole Trimethoprim/Sulfametho xazole S F Tissue Culture 12:23 PM Tissue Culture O:ROSELIA Isolated Organism: 3.1 Antibiotic Interpretation CHEN Status AMOXICILLIN/CLAVULANIC ACID AMOXICILLIN/CLAVULANIC ACID R F Cefazolin Cefazolin R F Cefepime Cefepime S F Ceftriaxone Ceftriaxone S F Cefuroxime Cefuroxime R F Ciprofloxacin Ciprofloxacin S F Ertapenem Ertapenem S F Gentamicin Gentamicin S F Levofloxacin Levofloxacin S F Meropenem Meropenem S F Nitrofurantoin Nitrofurantoin R F Tetracycline Tetracycline S F Tobramycin Tobramycin S F Trimethoprim/Sulfametho xazole Trimethoprim/Sulfametho xazole S F Tissue Culture Serratia marcescens Tissue Culture O:SERLEXY Isolated Organism: 3.1 Antibiotic Interpretation CHEN Status AMOXICILLIN/CLAVULANIC ACID AMOXICILLIN/CLAVULANIC ACID R F Cefazolin Cefazolin R F Cefepime Cefepime S F Ceftriaxone Ceftriaxone S F Cefuroxime Cefuroxime R F Ciprofloxacin Ciprofloxacin S F Ertapenem Ertapenem S F Gentamicin Gentamicin S F Levofloxacin Levofloxacin S F Meropenem Meropenem S F Nitrofurantoin Nitrofurantoin R F Tetracycline Tetracycline S F Tobramycin Tobramycin S F Trimethoprim/Sulfametho xazole Trimethoprim/Sulfametho xazole S F Tissue Culture See Below For Report Tissue Culture O:ROSELIA Isolated Organism: 3.1 Antibiotic Interpretation CHEN Status AMOXICILLIN/CLAVULANIC ACID AMOXICILLIN/CLAVULANIC ACID R F Cefazolin Cefazolin R F Cefepime Cefepime S F Ceftriaxone Ceftriaxone S F Cefuroxime Cefuroxime R F Ciprofloxacin Ciprofloxacin S F Ertapenem Ertapenem S F Gentamicin Gentamicin S F Levofloxacin Levofloxacin S F Meropenem Meropenem S F Nitrofurantoin Nitrofurantoin R F Tetracycline Tetracycline S F Tobramycin Tobramycin S F Trimethoprim/Sulfametho xazole Trimethoprim/Sulfametho xazole S F Tissue Culture See Below For Report Tissue Culture O:ROSELIA Isolated Organism: 3.1 Antibiotic Interpretation CHEN Status AMOXICILLIN/CLAVULANIC ACID AMOXICILLIN/CLAVULANIC ACID R F Cefazolin Cefazolin R F Cefepime Cefepime S F Ceftriaxone Ceftriaxone S F Cefuroxime Cefuroxime R F Ciprofloxacin Ciprofloxacin S F Ertapenem Ertapenem S F Gentamicin Gentamicin S F Levofloxacin Levofloxacin S F Meropenem Meropenem S F Nitrofurantoin Nitrofurantoin R F Tetracycline Tetracycline S F Tobramycin Tobramycin S F Trimethoprim/Sulfametho xazole Trimethoprim/Sulfametho xazole S F Tissue Culture See Below For Report Tissue Culture O:SERLEXY Isolated Organism: 3.1 Antibiotic Interpretation CHEN Status AMOXICILLIN/CLAVULANIC ACID AMOXICILLIN/CLAVULANIC ACID R F Cefazolin Cefazolin R F Cefepime Cefepime S F Ceftriaxone Ceftriaxone S F Cefuroxime Cefuroxime R F Ciprofloxacin Ciprofloxacin S F Ertapenem Ertapenem S F Gentamicin Gentamicin S F Levofloxacin Levofloxacin S F Meropenem Meropenem S F Nitrofurantoin Nitrofurantoin R F Tetracycline Tetracycline S F Tobramycin Tobramycin S F Trimethoprim/Sulfametho xazole Trimethoprim/Sulfametho xazole S F Tissue Culture See Below For Report Tissue Culture O:SERMAR Isolated Organism: 3.1 Antibiotic Interpretation CHEN Status AMOXICILLIN/CLAVULANIC ACID AMOXICILLIN/CLAVULANIC ACID R F Cefazolin Cefazolin R F Cefepime Cefepime S F Ceftriaxone Ceftriaxone S F Cefuroxime Cefuroxime R F Ciprofloxacin Ciprofloxacin S F Ertapenem Ertapenem S F Gentamicin Gentamicin S F Levofloxacin Levofloxacin S F Meropenem Meropenem S F Nitrofurantoin Nitrofurantoin R F Tetracycline Tetracycline S F Tobramycin Tobramycin S F Trimethoprim/Sulfametho xazole Trimethoprim/Sulfametho xazole S F Tissue Culture See Below For Report Tissue Culture O:SERLEXY Isolated Organism: 3.1 Antibiotic Interpretation CHEN Status AMOXICILLIN/CLAVULANIC ACID AMOXICILLIN/CLAVULANIC ACID R F Cefazolin Cefazolin R F Cefepime Cefepime S F Ceftriaxone Ceftriaxone S F Cefuroxime Cefuroxime R F Ciprofloxacin Ciprofloxacin S F Ertapenem Ertapenem S F Gentamicin Gentamicin S F Levofloxacin Levofloxacin S F Meropenem Meropenem S F Nitrofurantoin Nitrofurantoin R F Tetracycline Tetracycline S F Tobramycin Tobramycin S F Trimethoprim/Sulfametho xazole Trimethoprim/Sulfametho xazole S F Tissue Culture See Below For Report Tissue Culture O:SERLEXY Isolated Organism: 3.1 Antibiotic Interpretation CHEN Status AMOXICILLIN/CLAVULANIC ACID AMOXICILLIN/CLAVULANIC ACID R F Cefazolin Cefazolin R F Cefepime Cefepime S F Ceftriaxone Ceftriaxone S F Cefuroxime Cefuroxime R F Ciprofloxacin Ciprofloxacin S F Ertapenem Ertapenem S F Gentamicin Gentamicin S F Levofloxacin Levofloxacin S F Meropenem Meropenem S F Nitrofurantoin Nitrofurantoin R F Tetracycline Tetracycline S F Tobramycin Tobramycin S F Trimethoprim/Sulfametho xazole Trimethoprim/Sulfametho xazole S F Tissue Culture See Below For Report Tissue Culture O:ROSELIA Isolated Organism: 3.1 Antibiotic Interpretation CHEN Status AMOXICILLIN/CLAVULANIC ACID AMOXICILLIN/CLAVULANIC ACID R F Cefazolin Cefazolin R F Cefepime Cefepime S F Ceftriaxone Ceftriaxone S F Cefuroxime Cefuroxime R F Ciprofloxacin Ciprofloxacin S F Ertapenem Ertapenem S F Gentamicin Gentamicin S F Levofloxacin Levofloxacin S F Meropenem Meropenem S F Nitrofurantoin Nitrofurantoin R F Tetracycline Tetracycline S F Tobramycin Tobramycin S F Trimethoprim/Sulfametho xazole Trimethoprim/Sulfametho xazole S F Tissue Culture See Below For Report Tissue Culture O:ROSELIA Isolated Organism: 3.1 Antibiotic Interpretation CHEN Status AMOXICILLIN/CLAVULANIC ACID AMOXICILLIN/CLAVULANIC ACID R F Cefazolin Cefazolin R F Cefepime Cefepime S F Ceftriaxone Ceftriaxone S F Cefuroxime Cefuroxime R F Ciprofloxacin Ciprofloxacin S F Ertapenem Ertapenem S F Gentamicin Gentamicin S F Levofloxacin Levofloxacin S F Meropenem Meropenem S F Nitrofurantoin Nitrofurantoin R F Tetracycline Tetracycline S F Tobramycin Tobramycin S F Trimethoprim/Sulfametho xazole Trimethoprim/Sulfametho xazole S F Tissue Culture See Below For Report Tissue Culture O:ROSELIA Isolated Organism: 3.1 Antibiotic Interpretation CHEN Status AMOXICILLIN/CLAVULANIC ACID AMOXICILLIN/CLAVULANIC ACID R F Cefazolin Cefazolin R F Cefepime Cefepime S F Ceftriaxone Ceftriaxone S F Cefuroxime Cefuroxime R F Ciprofloxacin Ciprofloxacin S F Ertapenem Ertapenem S F Gentamicin Gentamicin S F Levofloxacin Levofloxacin S F Meropenem Meropenem S F Nitrofurantoin Nitrofurantoin R F Tetracycline Tetracycline S F Tobramycin Tobramycin S F Trimethoprim/Sulfametho xazole Trimethoprim/Sulfametho xazole S F Tissue Culture See Below For Report Tissue Culture O:ROSELIA Isolated Organism: 3.1 Antibiotic Interpretation CHEN Status AMOXICILLIN/CLAVULANIC ACID AMOXICILLIN/CLAVULANIC ACID R F Cefazolin Cefazolin R F Cefepime Cefepime S F Ceftriaxone Ceftriaxone S F Cefuroxime Cefuroxime R F Ciprofloxacin Ciprofloxacin S F Ertapenem Ertapenem S F Gentamicin Gentamicin S F Levofloxacin Levofloxacin S F Meropenem Meropenem S F Nitrofurantoin Nitrofurantoin R F Tetracycline Tetracycline S F Tobramycin Tobramycin S F Trimethoprim/Sulfametho xazole Trimethoprim/Sulfametho xazole S F Tissue Culture See Below For Report Tissue Culture O:SERMAR Isolated Organism: 3.1 Antibiotic Interpretation CHEN Status AMOXICILLIN/CLAVULANIC ACID AMOXICILLIN/CLAVULANIC ACID R F Cefazolin Cefazolin R F Cefepime Cefepime S F Ceftriaxone Ceftriaxone S F Cefuroxime Cefuroxime R F Ciprofloxacin Ciprofloxacin S F Ertapenem Ertapenem S F Gentamicin Gentamicin S F Levofloxacin Levofloxacin S F Meropenem Meropenem S F Nitrofurantoin Nitrofurantoin R F Tetracycline Tetracycline S F Tobramycin Tobramycin S F Trimethoprim/Sulfametho xazole Trimethoprim/Sulfametho xazole S F Tissue Culture See Below For Report Tissue Culture O:SERMAR Isolated Organism: 3.1 Antibiotic Interpretation CHEN Status AMOXICILLIN/CLAVULANIC ACID AMOXICILLIN/CLAVULANIC ACID R F Cefazolin Cefazolin R F Cefepime Cefepime S F Ceftriaxone Ceftriaxone S F Cefuroxime Cefuroxime R F Ciprofloxacin Ciprofloxacin S F Ertapenem Ertapenem S F Gentamicin Gentamicin S F Levofloxacin Levofloxacin S F Meropenem Meropenem S F Nitrofurantoin Nitrofurantoin R F Tetracycline Tetracycline S F Tobramycin Tobramycin S F Trimethoprim/Sulfametho xazole Trimethoprim/Sulfametho xazole S F Tissue Culture See Below For Report Tissue Culture O:SERMAR Isolated Organism: 3.1 Antibiotic Interpretation CHEN Status AMOXICILLIN/CLAVULANIC ACID AMOXICILLIN/CLAVULANIC ACID R F Cefazolin Cefazolin R F Cefepime Cefepime S F Ceftriaxone Ceftriaxone S F Cefuroxime Cefuroxime R F Ciprofloxacin Ciprofloxacin S F Ertapenem Ertapenem S F Gentamicin Gentamicin S F Levofloxacin Levofloxacin S F Meropenem Meropenem S F Nitrofurantoin Nitrofurantoin R F Tetracycline Tetracycline S F Tobramycin Tobramycin S F Trimethoprim/Sulfametho xazole Trimethoprim/Sulfametho xazole S F Tissue Culture See Below For Report Tissue Culture O:SERMAR Isolated Organism: 3.1 Antibiotic Interpretation CHEN Status AMOXICILLIN/CLAVULANIC ACID AMOXICILLIN/CLAVULANIC ACID R F Cefazolin Cefazolin R F Cefepime Cefepime S F Ceftriaxone Ceftriaxone S F Cefuroxime Cefuroxime R F Ciprofloxacin Ciprofloxacin S F Ertapenem Ertapenem S F Gentamicin Gentamicin S F Levofloxacin Levofloxacin S F Meropenem Meropenem S F Nitrofurantoin Nitrofurantoin R F Tetracycline Tetracycline S F Tobramycin Tobramycin S F Trimethoprim/Sulfametho xazole Trimethoprim/Sulfametho xazole S F Tissue Culture See Below For Report Tissue Culture O:SERMAR Isolated Organism: 3.1 Antibiotic Interpretation CHEN Status AMOXICILLIN/CLAVULANIC ACID AMOXICILLIN/CLAVULANIC ACID R F Cefazolin Cefazolin R F Cefepime Cefepime S F Ceftriaxone Ceftriaxone S F Cefuroxime Cefuroxime R F Ciprofloxacin Ciprofloxacin S F Ertapenem Ertapenem S F Gentamicin Gentamicin S F Levofloxacin Levofloxacin S F Meropenem Meropenem S F Nitrofurantoin Nitrofurantoin R F Tetracycline Tetracycline S F Tobramycin Tobramycin S F Trimethoprim/Sulfametho xazole Trimethoprim/Sulfametho xazole S F Tissue Culture See Below For Report Tissue Culture O:SERMAR Isolated Organism: 3.1 Antibiotic Interpretation CHEN Status AMOXICILLIN/CLAVULANIC ACID AMOXICILLIN/CLAVULANIC ACID R F Cefazolin Cefazolin R F Cefepime Cefepime S F Ceftriaxone Ceftriaxone S F Cefuroxime Cefuroxime R F Ciprofloxacin Ciprofloxacin S F Ertapenem Ertapenem S F Gentamicin Gentamicin S F Levofloxacin Levofloxacin S F Meropenem Meropenem S F Nitrofurantoin Nitrofurantoin R F Tetracycline Tetracycline S F Tobramycin Tobramycin S F Trimethoprim/Sulfametho xazole Trimethoprim/Sulfametho xazole S F Performing Lab: see note LC - [facility] SEE REPORT - Almond Huller Id information not found for OBX-specific [employer] producer legend AFB Specimen Processing (Not yet reviewed by provider) Interpretation: Performing Lab: Notes/Report: [facility] , AFB Specimen Processing See Below For Report AFB Specimen Processing AFB Specimen Processing Tissue Grinding AFB Specimen Processing Performing Lab: see note LC - [facility] LB XR foot RT min 3V (Not yet r eviewed by provider) Interpretation: Performing Lab: Notes/Report: Source Facility: [place] [address] XRay Report Signed Patient: TYLER MCKINNEY MR#: [id number] : 1960 Acct:[id number] Age/Sex: 63 / M ADM Date: 04/08/24 Loc: SURGOUT Attending Dr: Curt Curtis D.P.M. Ordering Physician: Curt Curtis D.P.M. Date of Service: 04/08/24 Procedure(s): XR foot RT min 3V Accession Number(s): [id number] cc: Curt Curtis D.P.M.; DARA EISENBERG [place] [address] Patient Name: TYLER MCKINNEY MRN: [id number] date: 1960 Sex: M Assigned Patient Location: [facility] Current Patient Location: [facility] Accession/Order Number: [id number] Exam Date: 04/08/2024 14:30 Report Date: 04/12/2024 07:46 At the request of: CURT CURTIS Procedure: XR foot RT min 3V PROCEDURE: XR foot RT min 3V COMPARISON: 03/29/2024 HISTORY: osteomyelitis FINDINGS: BONES:Forefoot Amputation along the proximal metatarsals diaphyses. No acute fracture or dislocation. Minimal degenerative changes with marginal osteophyte formation. No focal lytic or sclerotic changes SOFT TISSUES:Negative. No visible soft tissue swelling. EFFUSION:None visible. OTHER: Negative. XR/XR foot RT min 3V IMPRESSION: Interval forefoot amputation Electronically authenticated by: PRESTON MILAN Date: 04/12/2024 07:46 Dictated By: Preston Milan M.D. Signed By: 04/12/2448 DD/ TD/TT: Air Conditioning Installer: [place] [address] XRay Report Signed Patient: TYLER MCKINNEY MR#: [id number] : 1960 Acct:[id number] Age/Sex: 63 / M ADM Date: 04/08/24 Loc: SURGOUT Attending Dr: Curt Curtis D.P.M. Ordering Physician: Curt Curtis D.P.M. Date of Service: 04/08/24 Procedure(s): XR cyndie t RT min 3V Accession Number(s): [id number] cc: Curt Curtis D.P.M.; DARA EISENBERG [place] [address] Patient Name: TYLER MCKINNEY MRN: [id number] date: 1960 Sex: M Assigned Patient Location: [facility] Current Patient Location: [facility] Accession/Order Numb er: [id number] Exam Date: 04/08/2024 14:30 Report Date: 04/12/2024 07:46 At the request of: CURT CURTIS Procedure: XR foot R T min 3V PROCEDURE: XR foot R T min 3V COMPARISON: 03/29/2024 HISTORY: osteomyelitis FINDINGS: BONES:Forefoot Amputation along the proximal metatarsals diaphyses. No acute fracture or dislocation. Minimal degenerative changes with marginal osteophyte formation. No focal lytic or sclerotic changes SOFT TISSUES:Negativ e. No visible soft tissue swelling. EFFUSION:None visible. OTHER: Negative. XR/XR foot RT min 3V IMPRESSION: Interval forefoot amputation Electronically authenticated by: PRESTON MILAN Date: 04/12/2024 07:46 Dictated By: Miguel Milan M.D. Signed By: 04/12/2448 DD/ TD/TT: Air Conditioning Installer: Fungus Stain (Not yet review ed by provider) Interpretation: Performing Lab: Notes/Report: [facility] , Fungus Stain See Below For Report Fungus Stain Fungus Stain ERICK/Calcofluor preparation: no fungus observed. Fungus Stain Performing Lab: see note LC - [facility] LB Gram Stain Result (Not yet r eviewed by provider) Interpretation: Performing Lab: Notes/Report: Specimen Comment: Test(s) Tissue Culture called to JESUS Mathis on 04/10/2024 at Specimen Comment: 13:06 EST [facility] , Gram Stain Result See Below For Report Gram Stain Result Gram Stain Result No white blood cells seen. Gram Stain Result Gram Stain Result Gram Stain Result Gram Stain Result No organisms seen Gram Stain Result Gram Stain Result Performed at: [facility] Gram Stain Result Gram Stain Result [address], [place] [id number] Gram Stain Result Gram Stain Result Linker Up: Yung Saeed PhD, Phone: [phone] Gram Stain Result Performing Lab: see note LC - [facility] LB SEE REPORT - Almond Huller Id information not found for OBX-specific theater company producer legend Anaerobic Cult, Extended Inc ub (Not yet reviewed by provider) Interpretation: Performing Lab: Notes/Report: Specimen Comment: Test(s) Tissue Culture called to JESUS Mathis on 04/10/2024 at Specimen Comment: 13:06 EST [facility] , Anaerobic Cult, Extended Incub See Below For Report Anaerobic Cult, Extended Incub No anaerobes recovered. Performing Lab: see note - [facility] Fungus Stain (Not yet review ed by provider) Interpretation: Performing Lab: Notes/Report: [facility] , Fungus Stain See Below For Report Fungus Stain Fungus Stain ERICK/Calcofluor preparation: no fungus observed. Fungus Stain Performing Lab: see note - [facility] LB Fungus Stain (Not yet review ed by provider) Interpretation: Performing Lab: Notes/Report: [facility] , Fungus Stain See Below For Report Fungus Stain Fungus Stain ERICK/Calcofluor preparation: no fungus observed. Fungus Stain Performing Lab: see note - [facility] Fungus (Mycology) Culture (N ot yet reviewed by provider) Interpretation: Performing Lab: Notes/Report: [facility] , Fungus (Mycology) Culture See Below For Report Fungus (Mycology) Culture Fungus (Mycology) Culture Culture Report: Fungus (Mycology) Culture Fungus (Mycology) Culture The specimen submitted for fungus culture has been received and Fungus (Mycology) Culture Fungus (Mycology) Culture culture has been initiated. Fungus (Mycology) Culture Fungus (Mycology) Culture No yeast or mold isolated after 4 weeks. Fungus (Mycology) Culture Fungus (Mycology) Culture Performed at: [facility] Fungus (Mycology) Culture Fungus (Mycology) Culture [address], [place] [id number] Fungus (Mycology) Culture Fungus (Mycology) Culture Linker Up: Tyron Saeed PhD, Phone: [phone] Fungus (Mycology) Culture Performing Lab: see note - [facility] SEE REPORT - Almond Huller Id information not found for OBX-specific theater company producer legend Fungus Stain (Not yet review ed by provider) Interpretation: Performing Lab: Notes/Report: [facility] , Fungus Stain See Below For Report Fungus Stain Fungus Stain ERICK/Calcofluor preparation: no fungus observed. Fungus Stain Performing Lab: see note - [facility] Acid Fast Culture (Not yet r eviewed by provider) Interpretation: Performing Lab: Notes/Report: Comment right foot [facility] , Acid Fast Culture See Below For Report Acid Fast Culture Specimen has been received and testing has been initiated. Acid Fast Culture Negative Acid Fast Culture Specimen has been received and testing has been initiated. Acid Fast Culture No acid fast bacilli isolated after 6 weeks. Acid Fast Culture Specimen has been received and testing has been initiated. Acid Fast Culture Performed at: [facility] Acid Fast Culture Specimen has been received and testing has been initiated. Acid Fast Culture [address], [place] [id number] Acid Fast Culture Specimen has been received and testing has been initiated. Acid Fast Culture Linker Up: Yung Saeed PhD, Phone: [phone] Acid Fast Culture Specimen has been received and testing has been initiated. Performing Lab: see note - [facility] SEE REPORT - Almond Huller Id information not found for OBX-specific theater company producer legend Acid Fast Smear (Not yet rev iewed by provider) Interpretation: Performing Lab: Notes/Report: Comment right foot [facility] , Acid Fast Smear See Below For Report Acid Fast Smear Negative Performing Lab: see note - [facility] LB AFB Specimen Processing (Not yet reviewed by provider) Interpretation: Performing Lab: Notes/Report: [facility] , AFB Specimen Processing See Below For Report AFB Specimen Processing AFB Specimen Processing Direct Inoculation AFB Specimen Processing Performing Lab: see note - [facility] Aerobic Culture (Not yet rev iewed by provider) Interpretation: Performing Lab: Notes/Report: LEFT LOWER LEG WOUND [facility] , Aerobic Culture See Below For Report Aerobic Culture Organism: Staphylococcus aureus : O:MRSA Isolated O:STAAUR Isolated Organism: 1.1 Antibiotic Interpretation CHEN Status Aerobic Culture *ABNORMAL* Aerobic Culture Organism: Staphylococcus aureus : O:MRSA Isolated O:STAAUR Isolated Organism: 1.1 Antibiotic Interpretation CHEN Status Aerobic Culture Moderate growth Aerobic Culture Organism: Staphylococcus aureus : O:MRSA Isolated O:STAAUR Isolated Organism: 1.1 Antibiotic Interpretation CHEN Status Aerobic Culture Staphylococcus aureus Aerobic Culture Organism: Staphylococcus aureus : O:MRSA Isolated O:STAAUR Isolated Organism: 1.1 Antibiotic Interpretation CHEN Status Aerobic Culture Organism: Methicilli n Resis Staph Aureus : Aerobic Culture Organism: Staphylococcus aureus : O:MRSA Isolated O:STAAUR Isolated Organism: 1.1 Antibiotic Interpretation CEHN Status Aerobic Culture *ABNORMAL* Aerobic Culture Organism: Staphylococcus aureus : O:MRSA Isolated O:STAAUR Isolated Organism: 1.1 Antibiotic Interpretation CHEN Status Aerobic Culture Methicillin - resistant Aerobic Culture Organism: Staphylococcus aureus : O:MRSA Isolated O:STAAUR Isolated Organism: 1.1 Antibiotic Interpretation CHEN Status Aerobic Culture Based on resistance to oxacillin this isolate would be Aerobic Culture Organism: Staphylococcus aureus : O:MRSA Isolated O:STAAUR Isolated Organism: 1.1 Antibiotic Interpretation CHEN Status Aerobic Culture resistant to all currently available beta-lactam Aerobic Culture Organism: Staphylococcus aureus : O:MRSA Isolated O:STAAUR Isolated Organism: 1.1 Antibiotic Interpretation CHEN Status Aerobic Culture antimicrobial agents , with the exception of the newer Aerobic Culture Organism: Staphylococcus aureus : O:MRSA Isolated O:STAAUR Isolated Organism: 1.1 Antibiotic Interpretation CHEN Status Aerobic Culture cephalosporins with anti-MRSA activity, such as Aerobic Culture Organism: Staphylococcus aureus : O:MRSA Isolated O:STAAUR Isolated Organism: 1.1 Antibiotic Interpretation CHEN Status Aerobic Culture Ceftaroline Aerobic Culture Organism: Staphylococcus aureus : O:MRSA Isolated O:STAAUR Isolated Organism: 1.1 Antibiotic Interpretation CHEN Status Aerobic Culture Moderate growth Aerobic Culture Organism: Staphylococcus aureus : O:MRSA Isolated O:STAAUR Isolated Organism: 1.1 Antibiotic Interpretation CHEN Status Aerobic Culture Methicillin Resis St aph Aureus Aerobic Culture Organism: Staphylococcus aureus : O:MRSA Isolated O:STAAUR Isolated Organism: 1.1 Antibiotic Interpretation CHEN Status Aerobic Culture See Below For Report Aerobic Culture Organism: Staphylococcus aureus : O:MRSA Isolated O:STAAUR Isolated Organism: 1.1 Antibiotic Interpretation CHEN Status Aerobic Culture See Below For Report Aerobic Culture Organism: Staphylococcus aureus : O:MRSA Isolated O:STAAUR Isolated Organism: 1.1 Antibiotic Interpretation CHEN Status Aerobic Culture Performed at: [facility] Aerobic Culture Organism: Staphylococcus aureus : O:MRSA Isolated O:STAAUR Isolated Organism: 1.1 Antibiotic Interpretation CHEN Status Aerobic Culture [address], [place] [id number] Aerobic Culture Organism: Staphylococcus aureus : O:MRSA Isolated O:STAAUR Isolated Organism: 1.1 Antibiotic Interpretation CHEN Status Aerobic Culture Linker Up: Yung Saeed PhD, Phone: [phone] Aerobic Culture Organism: Staphylococcus aureus : O:MRSA Isolated O:STAAUR Isolated Organism: 1.1 Antibiotic Interpretation CHEN Status Aerobic Culture See Below For Report Aerobic Culture Organism: Staphylococcus aureus : O:MRSA Isolated O:STAAUR Isolated Organism: 1.1 Antibiotic Interpretation CHEN Status Aerobic Culture Ciprofloxacin R F Aerobic Culture Organism: Staphylococcus aureus : O:MRSA Isolated O:STAAUR Isolated Organism: 1.1 Antibiotic Interpretation CHEN Status Aerobic Culture Erythromycin R F Aerobic Culture Organism: Staphylococcus aureus : O:MRSA Isolated O:STAAUR Isolated Organism: 1.1 Antibiotic Interpretation CHEN Status Aerobic Culture Gentamicin S F Aerobic Culture Organism: Staphylococcus aureus : O:MRSA Isolated O:STAAUR Isolated Organism: 1.1 Antibiotic Interpretation CHEN Status Aerobic Culture Levofloxacin R F Aerobic Culture Organism: Staphylococcus aureus : O:MRSA Isolated O:STAAUR Isolated Organism: 1.1 Antibiotic Interpretation CHEN Status Aerobic Culture Linezolid S F Aerobic Culture Organism: Staphylococcus aureus : O:MRSA Isolated O:STAAUR Isolated Organism: 1.1 Antibiotic Interpretation CHEN Status Aerobic Culture Oxacillin R F Aerobic Culture Organism: Staphylococcus aureus : O:MRSA Isolated O:STAAUR Isolated Organism: 1.1 Antibiotic Interpretation CHEN Status Aerobic Culture Penicillin R F Aerobic Culture Organism: Staphylococcus aureus : O:MRSA Isolated O:STAAUR Isolated Organism: 1.1 Antibiotic Interpretation CHEN Status Aerobic Culture Rifampin S F Aerobic Culture Organism: Staphylococcus aureus : O:MRSA Isolated O:STAAUR Isolated Organism: 1.1 Antibiotic Interpretation CHEN Status Aerobic Culture Tetracycline S F Aerobic Culture Organism: Staphylococcus aureus : O:MRSA Isolated O:STAAUR Isolated Organism: 1.1 Antibiotic Interpretation CHEN Status Aerobic Culture Trimethoprim/Sulfame tho xazole R F Aerobic Culture Organism: Staphylococcus aureus : O:MRSA Isolated O:STAAUR Isolated Organism: 1.1 Antibiotic Interpretation CHEN Status Aerobic Culture Vancomycin S F Aerobic Culture Organism: Staphylococcus aureus : O:MRSA Isolated O:STAAUR Isolated Organism: 1.1 Antibiotic Interpretation CHEN Status Aerobic Culture Clindamycin S F Aerobic Culture Organism: Staphylococcus aureus : O:MRSA Isolated O:STAAUR Isolated Organism: 1.1 Antibiotic Interpretation CHEN Status Performing Lab: see note LC - [facility] SEE REPORT - Almond Huller Id information not found for OBX-specific theater company producer legend Aerobic Culture (Not yet rev iewed by provider) Interpretation: Performing Lab: Notes/Report: LEFT LOWER LEG WOUND [facility] , Aerobic Culture See Below For Report Aerobic Culture Organism: Staphylococcus aureus : O:MRSA Isolated O:STAAUR Isolated Organism: 2.1 Antibiotic Interpretation CHEN Status Ciprofloxacin Ciprofloxacin R F Erythromycin Erythromycin R F Gentamicin Gentamicin S F Levofloxacin Levofloxacin R F Linezolid Linezolid S F Oxacillin Oxacillin R F Penicillin Penicillin R F Rifampin Rifampin S F Tetracycline Tetracycline S F Trimethoprim/Sulfametho xazole Trimethoprim/Sulfametho xazole R F Vancomycin Vancomycin S F Clindamycin Clindamycin S F Aerobic Culture *ABNORMAL* Aerobic Culture Organism: Staphylococcus aureus : O:MRSA Isolated O:STAAUR Isolated Organism: 2.1 Antibiotic Interpretation CHEN Status Ciprofloxacin Ciprofloxacin R F Erythromycin Erythromycin R F Gentamicin Gentamicin S F Levofloxacin Levofloxacin R F Linezolid Linezolid S F Oxacillin Oxacillin R F Penicillin Penicillin R F Rifampin Rifampin S F Tetracycline Tetracycline S F Trimethoprim/Sulfametho xazole Trimethoprim/Sulfametho xazole R F Vancomycin Vancomycin S F Clindamycin Clindamycin S F Aerobic Culture Moderate growth Aerobic Culture Organism: Staphylococcus aureus : O:MRSA Isolated O:STAAUR Isolated Organism: 2.1 Antibiotic Interpretation CHEN Status Ciprofloxacin Ciprofloxacin R F Erythromycin Erythromycin R F Gentamicin Gentamicin S F Levofloxacin Levofloxacin R F Linezolid Linezolid S F Oxacillin Oxacillin R F Penicillin Penicillin R F Rifampin Rifampin S F Tetracycline Tetracycline S F Trimethoprim/Sulfametho xazole Trimethoprim/Sulfametho xazole R F Vancomycin Vancomycin S F Clindamycin Clindamycin S F Aerobic Culture Staphylococcus aureus Aerobic Culture Organism: Staphylococcus aureus : O:MRSA Isolated O:STAAUR Isolated Organism: 2.1 Antibiotic Interpretation CHEN Status Ciprofloxacin Ciprofloxacin R F Erythromycin Erythromycin R F Gentamicin Gentamicin S F Levofloxacin Levofloxacin R F Linezolid Linezolid S F Oxacillin Oxacillin R F Penicillin Penicillin R F Rifampin Rifampin S F Tetracycline Tetracycline S F Trimethoprim/Sulfametho xazole Trimethoprim/Sulfametho xazole R F Vancomycin Vancomycin S F Clindamycin Clindamycin S F Aerobic Culture Organism: Becky Webster Staph Aureus : Aerobic Culture Organism: Staphylococcus aureus : O:MRSA Isolated O:STAAUR Isolated Organism: 2.1 Antibiotic Interpretation CHEN Status Ciprofloxacin Ciprofloxacin R F Erythromycin Erythromycin R F Gentamicin Gentamicin S F Levofloxacin Levofloxacin R F Linezolid Linezolid S F Oxacillin Oxacillin R F Penicillin Penicillin R F Rifampin Rifampin S F Tetracycline Tetracycline S F Trimethoprim/Sulfametho xazole Trimethoprim/Sulfametho xazole R F Vancomycin Vancomycin S F Clindamycin Clindamycin S F Aerobic Culture *ABNORMAL* Aerobic Culture Organism: Staphylococcus aureus : O:MRSA Isolated O:[facility] Isolated Organism: 2.1 Antibiotic Interpretation CHEN Status Ciprofloxacin Ciprofloxacin R F Erythromycin Erythromycin R F Gentamicin Gentamicin S F Levofloxacin Levofloxacin R F Linezolid Linezolid S F Oxacillin Oxacillin R F Penicillin Penicillin R F Rifampin Rifampin S F Tetracycline Tetracycline S F Trimethoprim/Sulfametho xazole Trimethoprim/Sulfametho xazole R F Vancomycin Vancomycin S F Clindamycin Clindamycin S F Aerobic Culture Methicillin - resistant Aerobic Culture Organism: Staphylococcus aureus : O:MRSA Isolated O:[facility] Isolated Organism: 2.1 Antibiotic Interpretation CHEN Status Ciprofloxacin Ciprofloxacin R F Erythromycin Erythromycin R F Gentamicin Gentamicin S F Levofloxacin Levofloxacin R F Linezolid Linezolid S F Oxacillin Oxacillin R F Penicillin Penicillin R F Rifampin Rifampin S F Tetracycline Tetracycline S F Trimethoprim/Sulfametho xazole Trimethoprim/Sulfametho xazole R F Vancomycin Vancomycin S F Clindamycin Clindamycin S F Aerobic Culture Based on resistance to oxacillin this isolate would be Aerobic Culture Organism: Staphylococcus aureus : O:MRSA [facility]olated [facility] Isolated Organism: 2.1 Antibiotic Interpretation CHEN Status Ciprofloxacin Ciprofloxacin R F Erythromycin Erythromycin R F Gentamicin Gentamicin S F Levofloxacin Levofloxacin R F Linezolid Linezolid S F Oxacillin Oxacillin R F Penicillin Penicillin R F Rifampin Rifampin S F Tetracycline Tetracycline S F Trimethoprim/Sulfametho xazole Trimethoprim/Sulfametho xazole R F Vancomycin Vancomycin S F Clindamycin Clindamycin S F Aerobic Culture resistant to all currently available beta-lactam Aerobic Culture Organism: Staphylococcus aureus : O:MRSA Isolated O:STAAUR Isolated Organism: 2.1 Antibiotic Interpretation CHEN Status Ciprofloxacin Ciprofloxacin R F Erythromycin Erythromycin R F Gentamicin Gentamicin S F Levofloxacin Levofloxacin R F Linezolid Linezolid S F Oxacillin Oxacillin R F Penicillin Penicillin R F Rifampin Rifampin S F Tetracycline Tetracycline S F Trimethoprim/Sulfametho xazole Trimethoprim/Sulfametho xazole R F Vancomycin Vancomycin S F Clindamycin Clindamycin S F Aerobic Culture antimicrobial agents , with the exception of the newer Aerobic Culture Organism: Staphylococcus aureus : O:MRSA Isolated O:STAAUR Isolated Organism: 2.1 Antibiotic Interpretation CHEN Status Ciprofloxacin Ciprofloxacin R F Erythromycin Erythromycin R F Gentamicin Gentamicin S F Levofloxacin Levofloxacin R F Linezolid Linezolid S F Oxacillin Oxacillin R F Penicillin Penicillin R F Rifampin Rifampin S F Tetracycline Tetracycline S F Trimethoprim/Sulfametho xazole Trimethoprim/Sulfametho xazole R F Vancomycin Vancomycin S F Clindamycin Clindamycin S F Aerobic Culture cephalosporins with anti-MRSA activity, such as Aerobic Culture Organism: Staphylococcus aureus : O:MRSA Isolated O:STAAUR Isolated Organism: 2.1 Antibiotic Interpretation CHEN Status Ciprofloxacin Ciprofloxacin R F Erythromycin Erythromycin R F Gentamicin Gentamicin S F Levofloxacin Levofloxacin R F Linezolid Linezolid S F Oxacillin Oxacillin R F Penicillin Penicillin R F Rifampin Rifampin S F Tetracycline Tetracycline S F Trimethoprim/Sulfametho xazole Trimethoprim/Sulfametho xazole R F Vancomycin Vancomycin S F Clindamycin Clindamycin S F Aerobic Culture Ceftaroline Aerobic Culture Organism: Staphylococcus aureus : O:MRSA Isolated O:STAAUR Isolated Organism: 2.1 Antibiotic Interpretation CHEN Status Ciprofloxacin Ciprofloxacin R F Erythromycin Erythromycin R F Gentamicin Gentamicin S F Levofloxacin Levofloxacin R F Linezolid Linezolid S F Oxacillin Oxacillin R F Penicillin Penicillin R F Rifampin Rifampin S F Tetracycline Tetracycline S F Trimethoprim/Sulfametho xazole Trimethoprim/Sulfametho xazole R F Vancomycin Vancomycin S F Clindamycin Clindamycin S F Aerobic Culture Moderate growth Aerobic Culture Organism: Staphylococcus aureus : O:MRSA Isolated O:STAAUR Isolated Organism: 2.1 Antibiotic Interpretation CHEN Status Ciprofloxacin Ciprofloxacin R F Erythromycin Erythromycin R F Gentamicin Gentamicin S F Levofloxacin Levofloxacin R F Linezolid Linezolid S F Oxacillin Oxacillin R F Penicillin Penicillin R F Rifampin Rifampin S F Tetracycline Tetracycline S F Trimethoprim/Sulfametho xazole Trimethoprim/Sulfametho xazole R F Vancomycin Vancomycin S F Clindamycin Clindamycin S F Aerobic Culture Methicillin Resis St aph Aureus Aerobic Culture Organism: Staphylococcus aureus : O:MRSA Isolated O:STAAUR Isolated Organism: 2.1 Antibiotic Interpretation CHEN Status Ciprofloxacin Ciprofloxacin R F Erythromycin Erythromycin R F Gentamicin Gentamicin S F Levofloxacin Levofloxacin R F Linezolid Linezolid S F Oxacillin Oxacillin R F Penicillin Penicillin R F Rifampin Rifampin S F Tetracycline Tetracycline S F Trimethoprim/Sulfametho xazole Trimethoprim/Sulfametho xazole R F Vancomycin Vancomycin S F Clindamycin Clindamycin S F Aerobic Culture See Below For Report Aerobic Culture Organism: Staphylococcus aureus : O:MRSA Isolated O:[facility] Isolated Organism: 2.1 Antibiotic Interpretation CHEN Status Ciprofloxacin Ciprofloxacin R F Erythromycin Erythromycin R F Gentamicin Gentamicin S F Levofloxacin Levofloxacin R F Linezolid Linezolid S F Oxacillin Oxacillin R F Penicillin Penicillin R F Rifampin Rifampin S F Tetracycline Tetracycline S F Trimethoprim/Sulfametho xazole Trimethoprim/Sulfametho xazole R F Vancomycin Vancomycin S F Clindamycin Clindamycin S F Aerobic Culture See Below For Report Aerobic Culture Organism: Staphylococcus aureus : O:MRSA Isolated O:[facility] Isolated Organism: 2.1 Antibiotic Interpretation CHEN Status Ciprofloxacin Ciprofloxacin R F Erythromycin Erythromycin R F Gentamicin Gentamicin S F Levofloxacin Levofloxacin R F Linezolid Linezolid S F Oxacillin Oxacillin R F Penicillin Penicillin R F Rifampin Rifampin S F Tetracycline Tetracycline S F Trimethoprim/Sulfametho xazole Trimethoprim/Sulfametho xazole R F Vancomycin Vancomycin S F Clindamycin Clindamycin S F Aerobic Culture Performed at: [facility] Aerobic Culture Organism: Staphylococcus aureus : O:MRSA [facility]olated [facility] Isolated Organism: 2.1 Antibiotic Interpretation CHEN Status Ciprofloxacin Ciprofloxacin R F Erythromycin Erythromycin R F Gentamicin Gentamicin S F Levofloxacin Levofloxacin R F Linezolid Linezolid S F Oxacillin Oxacillin R F Penicillin Penicillin R F Rifampin Rifampin S F Tetracycline Tetracycline S F Trimethoprim/Sulfametho xazole Trimethoprim/Sulfametho xazole R F Vancomycin Vancomycin S F Clindamycin Clindamycin S F Aerobic Culture [address], [place] [id number] Aerobic Culture Organism: Staphylococcus aureus : O:MRSA Isolated O:STAAUR Isolated Organism: 2.1 Antibiotic Interpretation CHEN Status Ciprofloxacin Ciprofloxacin R F Erythromycin Erythromycin R F Gentamicin Gentamicin S F Levofloxacin Levofloxacin R F Linezolid Linezolid S F Oxacillin Oxacillin R F Penicillin Penicillin R F Rifampin Rifampin S F Tetracycline Tetracycline S F Trimethoprim/Sulfametho xazole Trimethoprim/Sulfametho xazole R F Vancomycin Vancomycin S F Clindamycin Clindamycin S F Aerobic Culture Linker Up: Yung Saeed PhD, Phone: [phone] Aerobic Culture Organism: Staphylococcus aureus : O:MRSA Isolated O:STAAUR Isolated Organism: 2.1 Antibiotic Interpretation CHEN Status Ciprofloxacin Ciprofloxacin R F Erythromycin Erythromycin R F Gentamicin Gentamicin S F Levofloxacin Levofloxacin R F Linezolid Linezolid S F Oxacillin Oxacillin R F Penicillin Penicillin R F Rifampin Rifampin S F Tetracycline Tetracycline S F Trimethoprim/Sulfametho xazole Trimethoprim/Sulfametho xazole R F Vancomycin Vancomycin S F Clindamycin Clindamycin S F Aerobic Culture See Below For Report Aerobic Culture Organism: Staphylococcus aureus : O:[facility] Is[facility] Organism: 2.1 Antibiotic Interpretation CHEN Status Ciprofloxacin Ciprofloxacin R F Erythromycin Erythromycin R F Gentamicin Gentamicin S F Levofloxacin Levofloxacin R F Linezolid Linezolid S F Oxacillin Oxacillin R F Penicillin Penicillin R F Rifampin Rifampin S F Tetracycline Tetracycline S F Trimethoprim/Sulfametho xazole Trimethoprim/Sulfametho xazole R F Vancomycin Vancomycin S F Clindamycin Clindamycin S F Aerobic Culture See Below For Report Aerobic Culture Organism: Staphylococcus aureus : O:MRSA Isolated O:STAR Isolated Organism: 2.1 Antibiotic Interpretation CHEN Status Ciprofloxacin Ciprofloxacin R F Erythromycin Erythromycin R F Gentamicin Gentamicin S F Levofloxacin Levofloxacin R F Linezolid Linezolid S F Oxacillin Oxacillin R F Penicillin Penicillin R F Rifampin Rifampin S F Tetracycline Tetracycline S F Trimethoprim/Sulfametho xazole Trimethoprim/Sulfametho xazole R F Vancomycin Vancomycin S F Clindamycin Clindamycin S F Aerobic Culture See Below For Report Aerobic Culture Organism: Staphylococcus aureus : O:MRSA Isolated O:STAR Isolated Organism: 2.1 Antibiotic Interpretation CHEN Status Ciprofloxacin Ciprofloxacin R F Erythromycin Erythromycin R F Gentamicin Gentamicin S F Levofloxacin Levofloxacin R F Linezolid Linezolid S F Oxacillin Oxacillin R F Penicillin Penicillin R F Rifampin Rifampin S F Tetracycline Tetracycline S F Trimethoprim/Sulfametho xazole Trimethoprim/Sulfametho xazole R F Vancomycin Vancomycin S F Clindamycin Clindamycin S F Aerobic Culture See Below For Report Aerobic Culture Organism: Staphylococcus aureus : O:MRSA Isolated O:[facility] Isolated Organism: 2.1 Antibiotic Interpretation CHEN Status Ciprofloxacin Ciprofloxacin R F Erythromycin Erythromycin R F Gentamicin Gentamicin S F Levofloxacin Levofloxacin R F Linezolid Linezolid S F Oxacillin Oxacillin R F Penicillin Penicillin R F Rifampin Rifampin S F Tetracycline Tetracycline S F Trimethoprim/Sulfametho xazole Trimethoprim/Sulfametho xazole R F Vancomycin Vancomycin S F Clindamycin Clindamycin S F Aerobic Culture See Below For Report Aerobic Culture Organism: Staphylococcus aureus : O:MRSA Isolated O:[facility] Isolated Organism: 2.1 Antibiotic Interpretation CHEN Status Ciprofloxacin Ciprofloxacin R F Erythromycin Erythromycin R F Gentamicin Gentamicin S F Levofloxacin Levofloxacin R F Linezolid Linezolid S F Oxacillin Oxacillin R F Penicillin Penicillin R F Rifampin Rifampin S F Tetracycline Tetracycline S F Trimethoprim/Sulfametho xazole Trimethoprim/Sulfametho xazole R F Vancomycin Vancomycin S F Clindamycin Clindamycin S F Aerobic Culture See Below For Report Aerobic Culture Organism: Staphylococcus aureus : O:MRSA Isolated O:[facility] Isolated Organism: 2.1 Antibiotic Interpretation CHEN Status Ciprofloxacin Ciprofloxacin R F Erythromycin Erythromycin R F Gentamicin Gentamicin S F Levofloxacin Levofloxacin R F Linezolid Linezolid S F Oxacillin Oxacillin R F Penicillin Penicillin R F Rifampin Rifampin S F Tetracycline Tetracycline S F Trimethoprim/Sulfametho xazole Trimethoprim/Sulfametho xazole R F Vancomycin Vancomycin S F Clindamycin Clindamycin S F Aerobic Culture See Below For Report Aerobic Culture Organism: Staphylococcus aureus : O:MRSA Isolated O:STAR Isolated Organism: 2.1 Antibiotic Interpretation CHEN Status Ciprofloxacin Ciprofloxacin R F Erythromycin Erythromycin R F Gentamicin Gentamicin S F Levofloxacin Levofloxacin R F Linezolid Linezolid S F Oxacillin Oxacillin R F Penicillin Penicillin R F Rifampin Rifampin S F Tetracycline Tetracycline S F Trimethoprim/Sulfametho xazole Trimethoprim/Sulfametho xazole R F Vancomycin Vancomycin S F Clindamycin Clindamycin S F Aerobic Culture See Below For Report Aerobic Culture Organism: Staphylococcus aureus : O:MRSA Isolated O:STAR Isolated Organism: 2.1 Antibiotic Interpretation CHEN Status Ciprofloxacin Ciprofloxacin R F Erythromycin Erythromycin R F Gentamicin Gentamicin S F Levofloxacin Levofloxacin R F Linezolid Linezolid S F Oxacillin Oxacillin R F Penicillin Penicillin R F Rifampin Rifampin S F Tetracycline Tetracycline S F Trimethoprim/Sulfametho xazole Trimethoprim/Sulfametho xazole R F Vancomycin Vancomycin S F Clindamycin Clindamycin S F Aerobic Culture See Below For Report Aerobic Culture Organism: Staphylococcus aureus : O:MRSA Isolated O:[facility] Isolated Organism: 2.1 Antibiotic Interpretation CHEN Status Ciprofloxacin Ciprofloxacin R F Erythromycin Erythromycin R F Gentamicin Gentamicin S F Levofloxacin Levofloxacin R F Linezolid Linezolid S F Oxacillin Oxacillin R F Penicillin Penicillin R F Rifampin Rifampin S F Tetracycline Tetracycline S F Trimethoprim/Sulfametho xazole Trimethoprim/Sulfametho xazole R F Vancomycin Vancomycin S F Clindamycin Clindamycin S F Aerobic Culture See Below For Report Aerobic Culture Organism: Staphylococcus aureus : O:MRSA Isolated O:[facility] Isolated Organism: 2.1 Antibiotic Interpretation CHEN Status Ciprofloxacin Ciprofloxacin R F Erythromycin Erythromycin R F Gentamicin Gentamicin S F Levofloxacin Levofloxacin R F Linezolid Linezolid S F Oxacillin Oxacillin R F Penicillin Penicillin R F Rifampin Rifampin S F Tetracycline Tetracycline S F Trimethoprim/Sulfametho xazole Trimethoprim/Sulfametho xazole R F Vancomycin Vancomycin S F Clindamycin Clindamycin S F Aerobic Culture See Below For Report Aerobic Culture Organism: Staphylococcus aureus : O:MRSA Isolated O:[facility] Isolated Organism: 2.1 Antibiotic Interpretation CHEN Status Ciprofloxacin Ciprofloxacin R F Erythromycin Erythromycin R F Gentamicin Gentamicin S F Levofloxacin Levofloxacin R F Linezolid Linezolid S F Oxacillin Oxacillin R F Penicillin Penicillin R F Rifampin Rifampin S F Tetracycline Tetracycline S F Trimethoprim/Sulfametho xazole Trimethoprim/Sulfametho xazole R F Vancomycin Vancomycin S F Clindamycin Clindamycin S F Aerobic Culture See Below For Report Aerobic Culture Organism: Staphylococcus aureus : O:MRSA Isolated O:[facility] Isolated Organism: 2.1 Antibiotic Interpretation CHEN Status Ciprofloxacin Ciprofloxacin R F Erythromycin Erythromycin R F Gentamicin Gentamicin S F Levofloxacin Levofloxacin R F Linezolid Linezolid S F Oxacillin Oxacillin R F Penicillin Penicillin R F Rifampin Rifampin S F Tetracycline Tetracycline S F Trimethoprim/Sulfametho xazole Trimethoprim/Sulfametho xazole R F Vancomycin Vancomycin S F Clindamycin Clindamycin S F Aerobic Culture See Below For Report Aerobic Culture Organism: Staphylococcus aureus : O:MRSA Isolated O:[facility] Isolated Organism: 2.1 Antibiotic Interpretation CHEN Status Ciprofloxacin Ciprofloxacin R F Erythromycin Erythromycin R F Gentamicin Gentamicin S F Levofloxacin Levofloxacin R F Linezolid Linezolid S F Oxacillin Oxacillin R F Penicillin Penicillin R F Rifampin Rifampin S F Tetracycline Tetracycline S F Trimethoprim/Sulfametho xazole Trimethoprim/Sulfametho xazole R F Vancomycin Vancomycin S F Clindamycin Clindamycin S F Performing Lab: see note LC - [facility] SEE REPORT - Almond [place] Id information not found for OBX-specific theater company producer legend Anaerobic Culture (Not yet r eviewed by provider) Interpretation: Performing Lab: Notes/Report: LEFT LOWER LEG WOUND [facility] , Anaerobic Culture See Below For Report Anaerobic Culture Anaerobic Culture No anaerobic growth in 72 hours. Anaerobic Culture Performing Lab: see note LC - [facility] Reason For Referral No Information Medications Medication SIG (Take, Route, Frequency, Duration) Notes Start Date End Date Status Sulfamethoxazole-Trimethop rim 800-160 MG 1 tablet Orally twice daily for 10 days 04/09/2024 Active HYDROcodone-Acetaminophen 5-325 MG 1 tablet as needed Orally every 6 hrs for 7 days 04/12/2024 Active Problems Problem Type SNOMED Code ICD Code Onset Dates Problem Status W/U Status Risk Notes Problem Foot ulcer due to type 2 diabetes mellitus (7331349630582) Type 2 diabetes mellitus with foot ulcer (E11.621) Active confirmed Problem Chronic ulcer of lower extremity (46492957) Non-pressure chronic ulcer of other part of right lower leg limited to breakdown of skin (L97.811) Active confirmed Problem Acute exacerbation of chronic obstructive airways disease (783034324) COPD exacerbation (J44.1) Active confirmed Problem 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 with ulcer (I87.313) Active confirmed Problem Ulcer of left lower leg (disorder) (0773116405809406 3) Leg ulcer, left, limited to breakdown of skin (L97.921) Active confirmed Problem Acute osteomyelitis of ankle and/or foot (451718708) Acute osteomyelitis of right ankle or foot (M86.171) Active confirmed Problem Non-pressure chronic ulcer of other part of left lower leg with other specified severity (L97.828) Active confirmed Problem 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) Active confirmed Problem Chronic ulcer of right heel with fat layer exposed (L97.412) Active confirmed Problem Delayed surgical wound healing of toe amputation stump (T87.89) Active confirmed Problem Diabetes mellitus (12636719) Diabetes mellitus (E11.9) Active confirmed Problem Polyneuropathy due to type 2 diabetes mellitus (003292618) Controlled type 2 diabetes mellitus with diabetic polyneuropathy, unspecified whether [facility] insulin use (E11.42) Active confirmed Problem Polyneuropathy due to type 2 diabetes mellitus (232116837) 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) Active confirmed Encounters Encounter Location Date Provider Diagnosis [facility] [address] [place] [address] 04/08/2024 Curt Curtis [facility] (PODIATRY) [address] [place] [address] [place] [address] 04/09/2024 Kylah Leigh Plan Of Treatment Pending Test Test Name Order Date AFB Specimen Processing 04/08/2024 AFB Specimen Processing 03/25/2024 AFB Specimen Processing 03/29/2024 AFB Specimen Processing 03/25/2024 AFB Specimen Processing 04/08/2024 Acid Fast Smear 03/25/2024 Acid Fast Smear 04/08/2024 Acid Fast Culture 04/08/2024 Acid Fast Culture 03/25/2024 XR foot RT min 3V 04/12/2024 Fungus Stain 03/25/2024 Fungus Stain 04/08/2024 Fungus Stain 03/25/2024 Fungus Stain 04/08/2024 Fungus (Mycology) Culture 04/08/2024 Fungus (Mycology) Culture 03/25/2024 Gram Stain Result 03/25/2024 Gram Stain Result 03/29/2024 Gram Stain Result 04/08/2024 Gram Stain Result 04/08/2024 Aerobic Culture 08/10/2024 Aerobic Culture 08/10/2024 Anaerobic Culture 08/10/2024 Anaerobic Cult, Extended Incub 4 Anaerobic Cult, Extended Incub 4 Tissue Culture 03/25/2024 Tissue Culture 04/08/2024 Insurance Providers Payer Name Payer Address Payer Phone Subscriber Number Group Number Insured Name Patient Relationship to Insured Coverage Start Date Coverage End Date [facility] [address] MARILY ADAMES [phone] [id number] Tyler Mckinney Self - patient is the insured 4
--- OUTSIDE RECORDS SUMMARY | 2025-02-10 13:01 | XMS_ITS | Encounter Summary ---
Author Organization [facility] Address [address] [place] [address] Care Team Providers Care Supervisor Home Energy Consultant Name Role Phone Dara Eisenberg BIAS BINDING FOLDER Primary Care Provider Encounter Details Date Type Department Care Team ([facility] Contact Info) Description 01/26/2025 Abstract [facility] [address] [place] [id number] Sina Mckeon, DPM FACFAS [address] [place] [address] Social History Tobacco Use Types Packs/Day Years Used Date Smoking Tobacco: Never Assessed Sex and Gender Information Value Date Recorded Sex Assigned at Not on file Legal Sex Male 7:20 PM EDT Gender Identity Not on file Sexual Orientation Not on file documented as of this encounter Plan of Treatment Not on file documented as of this encounter Visit Diagnoses Not on filedocumented in this encounter Care Teams Supervisor Home Energy Consultant Relationship Specialty Start Date End Date Dara Eisenberg NP [address] [facility] [place] [address] [place] [address] PCP - General Family Medicine 11/11/24 documented as of this encounter
--- OUTSIDE RECORDS SUMMARY | 2025-02-10 13:01 | XMS_ITS | Clinical Summary ---
Author Organization [facility] Address [id number] [address] [id number] Care Team Providers Care Bleaching Machine Operator Name Role Phone Unavailable Primary Care Provider [...]
--- OUTSIDE RECORDS SUMMARY | 2025-02-10 13:01 | XMS_ITS | Clinical Summary ---
Author Organization [facility] Address [address] [place] [address] Care Team Providers Care Value Advisor Name Role Phone No, Physician Primary Care [...] COVID-19 Vaccine ( season) 2024 Influenza Vaccine (#1) 2025 Respiratory Syncytial Virus Immunization: Risk, 60-74 Risk, or 75+ (1 - 1-dose 75+ series) 2033 Care Teams Value Advisor Relationship Specialty Start Date End Date No, Physician [facility] PCP - General 10/04/16
--- OUTSIDE RECORDS SUMMARY | 2025-02-10 13:01 | XMS_ITS | Clinical Summary ---
Author Organization [facility] Address [address] [facility] [place] [address] Care Team Providers Care Operations Support Representative Name Role Phone Dara Eisenberg NP Primary Care Provider Encounters Date Type Department Care Team Description 01/26/2025 Abstract [facility] [address] [place] [address] Sina Mckeon, DPM FACFAS from Last 3 Months Social History Tobacco Use Types Packs/Day Years Used Date Smoking Tobacco: Never Assessed Sex and Gender Information Value Date Recorded Sex Assigned at Not on file Legal Sex Male 7:20 PM EDT Gender Identity Not on file Sexual Orientation Not on file Plan of Treatment Not on file Insurance [employer] MEDICARE Care Teams Operations Support Representative Relationship Specialty Start Date End Date Dara Eisenberg NP [address] [place] [id number] PCP - General Family Medicine 11/11/24
== END 2025-02-10 12:59 | disposition home or self-care (01) ==
LOC: WC 12:59
PROVIDERS: PCP Nurse Practitioner Family; Visit Provider Physician Assistant
DX: I87.313 Chronic venous hypertension (idiopathic) with ulcer of bilateral lower extremity (principal); L97.822 Non-pressure chronic ulcer of other part of left lower leg with fat layer exposed; L97.812 Non-pressure chronic ulcer of other part of right lower leg with fat layer exposed
CPT/HCPCS: G0463

== ENCOUNTER 2025-02-18 10:44 | Outpatient (OUT) | payer MEDICARE, SELFPAY ==
--- OUTSIDE RECORDS SUMMARY | 2024-04-08 04:15 | XMS_ITS ---
Author Organization The [facility] in [place] Address [address] [place] [address] Care Team Providers Care Assistant Wrestling Coach Name Role Phone Dara Eisenberg CNP Primary Care Provider U Rc Prado [phone] REASON FOR VISIT RT TMA Encounters Encounter Location Date Provider Diagnosis [facility] OUTPATIENT [address] [place] [address] 04/08/2024 Rc Curtis Plan Of Treatment No Information Progress Notes * Onofre SMITHDOB:1960 ([age] yo M)Acc No.[id number]:04/08/2024 UNLOCKED PROGRESS NOTE Patient: Onofre CORDERO Provider: Los Curtis DPM, MS :1960 A ge:63 Y S ex:Male Date:04/08/2024 Address:[address] [place], [place] [phone] Pcp:Dara Eisenberg CNP Check Out:12:18 PM EST * * Electronic signature of Cm Curtis DPM on 02/18/2025 at 10:45 AM EDT Sign off status: Pending Visit Status: C HK (Check Out) * Provider: Los Curtis DPM, MS Date: 04/08/2024 Generated for Cati ng/Klaudia/eTransmitting on: 02/18/2025 10:45 AM EDT
--- OUTSIDE RECORDS SUMMARY | 2024-04-09 06:38 | XMS_ITS ---
Author Organization [facility] in [place] Address [address] [place] [address] Care Team Providers Care Locomotive Engineer Diesel Name Role Phone Dara Eisenberg CNP Primary Care Provider Kylah Foote Unavailable [phone] REASON FOR VISIT post op medications Medications [...] [facility] (P[facility]) [address] [place] [address] [place] [address] 04/09/2024 Kylah Leigh Plan Of Treatment Medication Medication Name Sig Start Date Stop Date Notes Sulfamethoxazole-Trimethopri m 800-160 MG 1 tablet Orally twice daily for 10 days 04/09/2024 HYDROcodone-Acetaminophen 5- 325 MG 1 tablet as needed Orally every 6 hrs for 7 days 04/12/2024 Progress Notes * Onofre SMITHDOB:1960 ([age] yo M)Acc No.[id number]:04/09/2024 Patient: Onofre CORDERO :1960 A ge:63 Y S ex:Male Address:[address] [place] [address], [address] * Refills Start HYDROcodone-Acetaminophen Tablet, 5-325 MG, Orally, 28 Tablet, 1 tablet as needed, every 6 hrs, 7 days, Refills=0 Start Sulfamethoxazole-Trimethoprim Tablet, 800-160 MG, Orally, 20, 1 tablet, twice daily, 10 days, Refills=0 * true * Date: Generated for Den woodward/Klaudia/Meg on: 0 02/18/2025 10:45 AM EDT
--- OUTSIDE RECORDS SUMMARY | 2025-02-18 10:44 | XMS_ITS ---
Author Name Auto Generated, Auto Generated Organization [facility] Address [address] [facility] [place] [address] Phone [phone] Care Team Providers Care Soa Engineer Name Role Phone Saud Ficnh Unavailable [phone] Louis Brit Unavailable [phone] Saud Myersa Unavailable [phone] Functional Status No Results Mental Status No Results Allergies and Intolerances No Known Allergies Encounters Program Name Primary Diagnosis Admission Date/Time Dis charge Date/Time Home-based Hospice Encounter for pallia tive care [place] Aug 22 19:00:00 EST 2024 Problems Active [...]
--- OUTSIDE RECORDS SUMMARY | 2025-02-18 10:44 | XMS_ITS ---
Author Name Auto Generated, Auto Generated Organization [facility] Address [address] [facility] [place] [address] Phone [phone] Care Team Providers Care Oncology Social Worker Name Role Phone Saud Finch Unavailable [phone] Louis Brit Unavailable [phone] Saud Myersa Unavailable [phone] Functional Status No Results Mental Status No Results Allergies and Intolerances No Known Allergies Encounters Program Name Primary Diagnosis Admission Date/Time Dis charge Date/Time Home-based Hospice Encounter for pallia tive care [place] Aug 22 19:00:00 EST 2024 Problems Active [...]
--- OUTSIDE RECORDS SUMMARY | 2025-02-18 10:45 | XMS_ITS | Encounter Summary ---
Author Organization [facility] Address [address] [place] [address] Care Team Providers Care Gsa Coordinator Name Role Phone Dara Eisenberg WOODWIND INSTRUMENT REPAIRER Primary Care Provider Encounter Details Date Type Department Care Team ([facility] Contact Info) Description 01/26/2025 Abstract [facility] [address] [place] [phone] Sina Mckeon, DPM FACFAS [address] [place] [address] Social History Tobacco Use Types Packs/Day Years [...] on filedocumented in this encounter Care Teams Gsa Coordinator Relationship Specialty Start Date End Date Dara Eisenberg NP [address] [facility] [place] [address] PCP - General Family Medicine 11/11/24 documented as of this encounter
--- OUTSIDE RECORDS SUMMARY | 2025-02-18 10:45 | XMS_ITS | Clinical Summary ---
Author Organization [facility] Address [address] [place] [address] Care Team Providers Care Environmental Health Safety Manager Name Role Phone No, Physician Primary Care [...] - 1-dose 75+ series) 2033 Care Teams Environmental Health Safety Manager Relationship Specialty Start Date End Date No, Physician [facility] PCP - General 10/04/16
--- OUTSIDE RECORDS SUMMARY | 2025-02-18 10:46 | XMS_ITS | Clinical Summary ---
Author Organization [facility] Address [address] [facility] [place] [address] Care Team Providers Care Vertica Architect Name Role Phone Dara Eisenberg NP Primary Care Provider Encounters Date Type Department Care Team Description 01/26/2025 Abstract [facility] [address] [place] [address] Sina Mckeon, DPM FACFAS from Last 3 Months Social History Tobacco Use Types Packs/Day Years Used Date Smoking Tobacco: Never Assessed Sex and Gender Information Value Date Recorded Sex Assigned at Not on file Legal Sex Male 7:20 PM EDT Gender Identity Not on file Sexual Orientation Not on file Plan of Treatment Not on file Insurance [employer] MEDICARE Care Teams Vertica Architect Relationship Specialty Start Date End Date Dara Eisenberg NP [address] [place] [phone] PCP - General Family Medicine 11/11/24
--- OUTSIDE RECORDS SUMMARY | 2025-02-18 10:46 | XMS_ITS | Clinical Summary ---
Author Organization [facility] Address [id number] [address] [id number] Care Team Providers Care Cook House Supervisor Name Role Phone Unavailable Primary Care Provider [...]
== END 2025-02-18 10:45 | disposition home or self-care (01) ==
LOC: WC 10:44
PROVIDERS: PCP Nurse Practitioner Family; Visit Provider Physician Assistant
DX: I87.313 Chronic venous hypertension (idiopathic) with ulcer of bilateral lower extremity (principal); L97.822 Non-pressure chronic ulcer of other part of left lower leg with fat layer exposed; L97.812 Non-pressure chronic ulcer of other part of right lower leg with fat layer exposed
CPT/HCPCS: G0463

== ENCOUNTER 2025-02-21 15:29 | Outpatient (OUT) | payer MEDICARE, SELFPAY | END 2025-02-21 15:30 | disposition home or self-care (01) | LOC: WC 15:29 | PROVIDERS: PCP Nurse Practitioner Family; Visit Provider Physician Assistant | DX: R60.1 Generalized edema (principal); L97.822 Non-pressure chronic ulcer of other part of left lower leg with fat layer exposed; L97.812 Non-pressure chronic ulcer of other part of right lower leg with fat layer exposed; I87.313 Chronic venous hypertension (idiopathic) with ulcer of bilateral lower extremity | CPT/HCPCS: G0463 ==

== ENCOUNTER 2025-02-25 11:38 | Outpatient (OUT) | payer MEDICARE, SELFPAY ==
--- OUTSIDE RECORDS SUMMARY | 2024-04-08 04:15 | XMS_ITS ---
Author Organization The [facility] in [place] Address [address] [place] [address] Care Team Providers Care Travel Counselor Automobile Club Name Role Phone Dara Eisenberg CNP Primary Care Provider U Rc Prado [phone] REASON FOR VISIT RT TMA Encounters Encounter Location Date Provider Diagnosis [facility] OUTPATIENT [address] [place] [address] 04/08/2024 Rc Curtis Plan Of Treatment No Information Progress Notes * Onofre SMITHDOB:1960 ([age] yo M)Acc No.[id number]:04/08/2024 UNLOCKED PROGRESS NOTE Patient: Onofre CORDERO Provider: Los Curtis DPM, MS :1960 A ge:63 Y S ex:Male Date:04/08/2024 Address:[address] [place], [place] [id number] Pcp:Dara Eisenberg CNP Check Out:12:18 PM EST * * Electronic signature of Cm Curtis DPM on 02/25/2025 at 11:40 AM EDT Sign off status: Pending Visit Status: C HK (Check Out) * Provider: Los Curtis DPM, MS Date: 04/08/2024 Generated for Cati ng/Leisag/eTransmitting on: 02/25/2025 11:40 AM EDT
--- OUTSIDE RECORDS SUMMARY | 2024-04-09 06:38 | XMS_ITS ---
Author Organization [facility] in [place] Address [address] [place] [address] Care Team Providers Care Fnps Name Role Phone Dara Eisenberg CNP Primary Care Provider Kylah Foote Unavailable [phone] REASON FOR VISIT post op medications Medications Medication SIG (Take, Route, Frequency, Duration) Notes Start Date End Date Status Sulfamethoxazole-Trimethop rim 800-160 MG 1 tablet Orally twice daily for 10 days 04/09/2024 Active HYDROcodone-Acetaminophen 5-325 MG 1 tablet as needed Orally every 6 hrs for 7 days 04/12/2024 Active Encounters Encounter Location Date Provider Diagnosis [facility] (PODIATRY) [address] [place] [address] [place] [address] 04/09/2024 Kylah Leigh Plan Of Treatment Medication Medication Name Sig Start Date Stop Date Notes Sulfamethoxazole-Trimethopri m 800-160 MG 1 tablet Orally twice daily for 10 days 04/09/2024 HYDROcodone-Acetaminophen 5- 325 MG 1 tablet as needed Orally every 6 hrs for 7 days 04/12/2024 Progress Notes * Onofre SMITHDOB:1960 ([age] yo M)Acc No.[id number]:04/09/2024 Patient: Onofre CORDERO :1960 A ge:63 Y S ex:Male Address:[address] [place] [address], [address] * Refills Start HYDROcodone-Acetaminophen Tablet, 5-325 MG, Orally, 28 Tablet, 1 tablet as needed, every 6 hrs, 7 days, Refills=0 Start Sulfamethoxazole-Trimethoprim Tablet, 800-160 MG, Orally, 20, 1 tablet, twice daily, 10 days, Refills=0 * true * Date: Generated for Den woodward/Klaudia/Meg on: 0 02/25/2025 11:40 AM EDT
--- OUTSIDE RECORDS SUMMARY | 2025-02-25 11:39 | XMS_ITS ---
Author Name Auto Generated, Auto Generated Organization [facility] Address [address] [facility] [place] [address] Phone [phone] Care Team Providers Care Ross Carrier Driver Name Role Phone Saud Finch Unavailable [phone] Brit Myers Unavailable [phone] Saud Myersa Unavailable [phone] Functional Status No Results Mental Status No Results Allergies and Intolerances No Known Allergies Encounters Program Name Primary Diagnosis Admission Date/Time Dis charge Date/Time Home-based Hospice Encounter for pallia tive care [place] Aug 22 19:00:00 EST 2024 Problems Active [...]
--- OUTSIDE RECORDS SUMMARY | 2025-02-25 11:39 | XMS_ITS ---
Author Name Auto Generated, Auto Generated Organization [facility] Address [address] [facility] [place] [address] Phone [phone] Care Team Providers Care Research Food Technologist Name Role Phone Saud Finch Unavailable [phone] Brit Myers Unavailable [phone] Saud Myersa Unavailable [phone] Functional Status No Results Mental Status No Results Allergies and Intolerances No Known Allergies Encounters Program Name Primary Diagnosis Admission Date/Time Dis charge Date/Time Home-based Hospice Encounter for pallia tive care [place] Aug 22 19:00:00 EST 2024 Problems Active [...]
--- OUTSIDE RECORDS SUMMARY | 2025-02-25 11:40 | XMS_ITS | Encounter Summary ---
Author Organization [facility] Address [address] [place] [address] Care Team Providers Care Bale Opener Name Role Phone Dara Eisenberg BUTADIENE CONVERTER OPERATOR Primary Care Provider Encounter Details Date Type Department Care Team ([facility] Contact Info) Description 01/26/2025 Abstract [facility] [address] [place] [phone] Sina Mckeon, DPM FACFAS [address] [place] [address] Social History Tobacco Use Types Packs/Day Years [...] on filedocumented in this encounter Care Teams Bale Opener Relationship Specialty Start Date End Date Dara Eisenberg NP [address] [facility] [place] [address] PCP - General Family Medicine 11/11/24 documented as of this encounter
--- OUTSIDE RECORDS SUMMARY | 2025-02-25 11:40 | XMS_ITS | Clinical Summary ---
Author Organization [facility] Address [address] [place] [address] Care Team Providers Care Brass And Wind Instrument Repairer Name Role Phone No, Physician Primary Care [...] - 1-dose 75+ series) 2033 Care Teams Brass And Wind Instrument Repairer Relationship Specialty Start Date End Date No, Physician [facility] PCP - General 10/04/16
--- OUTSIDE RECORDS SUMMARY | 2025-02-25 11:41 | XMS_ITS | Clinical Summary ---
Author Organization [facility] Address [address] [facility] [place] [address] Care Team Providers Care Bag Patcher Name Role Phone Dara Eisenberg NP Primary Care Provider Encounters Date Type Department Care Team Description 01/26/2025 Abstract [facility] [address] [place] [address] Sina Mckeon, DPM FACFAS from Last 3 Months Social History Tobacco Use Types Packs/Day Years Used Date Smoking Tobacco: Never Assessed Sex and Gender Information Value Date Recorded Sex Assigned at Not on file Legal Sex Male 7:20 PM EDT Gender Identity Not on file Sexual Orientation Not on file Plan of Treatment Not on file Insurance [employer] MEDICARE Care Teams Bag Patcher Relationship Specialty Start Date End Date Dara Eisenberg NP [address] [place] [phone] PCP - General Family Medicine 11/11/24
--- OUTSIDE RECORDS SUMMARY | 2025-02-25 11:41 | XMS_ITS | Clinical Summary ---
Author Organization [facility] Address [id number] [address] [id number] Care Team Providers Care Finishing Pan Operator Name Role Phone Unavailable Primary Care [...]
== END 2025-02-25 11:39 | disposition home or self-care (01) ==
LOC: WC 11:38
PROVIDERS: PCP Nurse Practitioner Family; Visit Provider Physician Assistant
DX: I87.313 Chronic venous hypertension (idiopathic) with ulcer of bilateral lower extremity (principal); L97.822 Non-pressure chronic ulcer of other part of left lower leg with fat layer exposed; L97.812 Non-pressure chronic ulcer of other part of right lower leg with fat layer exposed
CPT/HCPCS: G0463

== ENCOUNTER 2025-02-28 13:07 | Outpatient (OUT) | payer MEDICARE, SELFPAY | END 2025-02-28 13:08 | disposition home or self-care (01) | LOC: WC 14:07 | PROVIDERS: PCP Nurse Practitioner Family; Visit Provider Physician Assistant | DX: I87.313 Chronic venous hypertension (idiopathic) with ulcer of bilateral lower extremity (principal); L97.822 Non-pressure chronic ulcer of other part of left lower leg with fat layer exposed; L97.812 Non-pressure chronic ulcer of other part of right lower leg with fat layer exposed | CPT/HCPCS: G0463 ==

== ENCOUNTER 2025-03-07 13:00 | Outpatient (OUT) | payer MEDICARE, SELFPAY ==
--- OUTSIDE RECORDS SUMMARY | 2024-04-08 04:15 | XMS_ITS ---
Author Organization [facility] in [place] Address [address] [place] [address] Care Team Providers Care Drawer Maker Name Role Phone Dara Eisenberg CNP Primary Care Provider U Rc Prado Unavailable [phone] REASON FOR VISIT RT TMA Encounters Encounter Location Date Provider Diagnosis [facility] OUTPATIENT [address] [place] [address] 04/08/2024 Rc Curtis Plan Of Treatment No Information Progress Notes * Onofre SMITHDOB:1960 ([age] yo M)Acc No.[id number]:04/08/2024 UNLOCKED PROGRESS NOTE Patient: Onofre CORDERO Provider: Los Curtis DPM, MS :1960 A ge:63 Y S ex:Male Date:04/08/2024 Address:[address] [place], [place] [id number] Pcp:Dara Eisenberg CNP Check Out:12:18 PM EST * * Electronic signature of Cm Curtis DPM on 03/07/2025 at 02:33 PM EDT Sign off status: Pending Visit Status: C HK (Check Out) * Provider: Los Curtis DPM, MS Date: 04/08/2024 Generated for Cati ng/Fasallyg/eTransmitting on: 03/07/2025 02:33 PM EDT
--- OUTSIDE RECORDS SUMMARY | 2024-04-09 06:38 | XMS_ITS ---
Author Organization [facility] in [place] Address [address] [place] [address] Care Team Providers Care Wood Router Name Role Phone Dara Eisenberg CNP Primary Care Provider Kylah Foote Unavailable [phone] REASON FOR VISIT post op medications Medications Medication SIG (Take, Route, Frequency, Duration) Notes Start Date End Date Status Sulfamethoxazole-Trimethop rim 800-160 MG 1 tablet Orally twice daily for 10 days 04/09/2024 Active HYDROcodone-Acetaminophen 5-325 MG 1 tablet as needed Orally every 6 hrs for 7 days 04/12/2024 Active Encounters Encounter Location Date Provider Diagnosis [facility] (PODIATRY) [address] [place] [address] [place] [address] 04/09/2024 Kylah Leigh Plan Of Treatment Medication Medication Name Sig Start Date Stop Date Notes Sulfamethoxazole-Trimethopri m 800-160 MG 1 tablet Orally twice daily for 10 days 04/09/2024 HYDROcodone-Acetaminophen 5- 325 MG 1 tablet as needed Orally every 6 hrs for 7 days 04/12/2024 Progress Notes * Onofre SMITHDOB:1960 ([age] yo M)Acc No.[id number]:04/09/2024 Patient: Onofre CORDERO :1960 A ge:63 Y S ex:Male Address:[address] [place] [address], [address] * Refills Start HYDROcodone-Acetaminophen Tablet, 5-325 MG, Orally, 28 Tablet, 1 tablet as needed, every 6 hrs, 7 days, Refills=0 Start Sulfamethoxazole-Trimethoprim Tablet, 800-160 MG, Orally, 20, 1 tablet, twice daily, 10 days, Refills=0 * true * Date: Generated for Den woodward/Klaudia/Meg on: 0 03/07/2025 02:33 PM EDT
--- OUTSIDE RECORDS SUMMARY | 2025-03-07 14:32 | XMS_ITS ---
Author Name Auto Generated, Auto Generated Organization [facility] Address [address] [facility] [place] [address] Phone [phone] Care Team Providers Care Distribution Clerk Name Role Phone Saud Finch Unavailable [phone] Brit Myers Unavailable [phone] Saud Myersa Unavailable [phone] Functional Status No Results Mental Status No Results Allergies and Intolerances No Known Allergies Encounters Program Name Primary Diagnosis Admission Date/Time Dis charge Date/Time Home-based Hospice Encounter for pallia tive care [place] Aug 22 19:00:00 EST 2024 Problems Active [...]
--- OUTSIDE RECORDS SUMMARY | 2025-03-07 14:32 | XMS_ITS ---
Author Name Auto Generated, Auto Generated Organization [facility] Address [address] [facility] [place] [address] Phone [phone] Care Team Providers Care Ticket Clerk Name Role Phone Saud Finch Unavailable [phone] Brit Myers Unavailable [phone] Saud Myersa Unavailable [phone] Functional Status No Results Mental Status No Results Allergies and Intolerances No Known Allergies Encounters Program Name Primary Diagnosis Admission Date/Time Dis charge Date/Time Home-based Hospice Encounter for pallia tive care [facility] Aug 22 19:00:00 EST 2024 Problems Active [...]
--- OUTSIDE RECORDS SUMMARY | 2025-03-07 14:33 | XMS_ITS | Clinical Summary ---
Author Organization [employer] [facility] Address [id number] [address] [id number] Care Team Providers Care Litigation Paralegal Name Role Phone Unavailable Primary Care Provider [...]
--- OUTSIDE RECORDS SUMMARY | 2025-03-07 14:33 | XMS_ITS | Patient Health Record ---
Author Organization [facility] [place] Address [address] [place] [address] Care Team Providers Care County Surveyor Name Role Phone Dara Quintana CNP Primary Care Provider Delisa Curt Prado Unavailable [phone] Kylah Leigh Unavailable [phone] Results Component Value Reference Range Notes Gram Stain Result (Not yet r eviewed by provider) Interpretation: Performing Lab: Notes/Report: [facility] , Gram Stain Result See Below For Report Gram Stain Result Gram Stain Result No white blood cells seen. Gram Stain Result Gram Stain Result Gram Stain Result Gram Stain Result Few gram positive cocci Gram Stain Result Gram Stain Result Performed at: [facility] Gram Stain Result Gram Stain Result [address], [place] [id number] Gram Stain Result Gram Stain Result Hem Marker: Ynug Saeed PhD, Phone: [phone] Gram Stain Result Performing Lab: see note - [facility] SEE REPORT - Recreation Clerk Id information not found for OBX-specific video producer legend Anaerobic Cult, [employer] ub [...] such as endocarditis Tissue Culture O:ENTFAC Isolated O:HUMERA Isolated Organism: 3.1 Antibiotic Interpretation CHEN Status [...] Tissue Culture (unless Tissue Culture O:ENTFAC Isolated O:HUMERA Isolated Organism: 3.1 Antibiotic Interpretation CHEN Status [...] and streptomycin is Tissue Culture O:ENTFAC Isolated O:HUMERA Isolated Organism: 3.1 Antibiotic Interpretation CHEN Status [...] Vancomycin S F Performing Lab: see note - [facility] SEE REPORT - Recreation Clerk Id information not found for OBX-specific video producer legend Gram Stain Result (Not yet r eviewed by provider) Interpretation: Performing Lab: Notes/Report: [facility] , Gram Stain Result See Below For Report Gram Stain Result Gram Stain Result No white blood cells seen. Gram Stain Result Gram Stain Result Gram Stain Result Gram Stain Result No organisms seen Gram Stain Result Gram Stain Result Performed at: [facility] Gram Stain Result Gram Stain Result [address], [place] [id number] Gram Stain Result Gram Stain Result Hem Marker: Yung Saeed PhD, Phone: [phone] Gram Stain Result Performing Lab: see note - [facility] SEE REPORT - Recreation Clerk Id information not found for OBX-specific video producer legend AFB Specimen Processing (Not yet reviewed by provider) Interpretation: Performing Lab: Notes/Report: [facility] , AFB Specimen Processing See Below For Report AFB Specimen Processing AFB Specimen Processing Tissue Grinding AFB Specimen Processing Performing Lab: see note - [facility] Acid Fast Smear (Not [...] been initiated. Acid Fast Culture Performed at: [facility] Acid Fast Culture Specimen has been received and testing has been initiated. Acid Fast Culture [address], [place] [id number] Acid Fast Culture Specimen has been received and testing has been initiated. Acid Fast Culture Hem Marker: Yung Saeed PhD, Phone: [phone] Acid Fast Culture Specimen has been received and testing has been initiated. Performing Lab: see note - [facility] SEE REPORT - Recreation Clerk Id information not found for OBX-specific video producer legend Fungus Stain (Not yet review ed by provider) Interpretation: Performing Lab: Notes/Report: [facility] , Fungus Stain See Below For Report Fungus Stain Fungus Stain ERICK/Calcofluor preparation: no fungus observed. Fungus Stain Performing Lab: see note - [facility] LB Anaerobic Culture (Not yet r eviewed by provider) Interpretation: Performing Lab: Notes/Report: LEFT LOWER LEG WOUND [facility] , Anaerobic Culture See Below For Report Anaerobic Culture Anaerobic Culture No anaerobic growth in 72 hours. Anaerobic Culture Performing Lab: see note - [facility] Aerobic Culture (Not yet rev iewed [...] Clindamycin Clindamycin S F Aerobic Culture Organism: Methicilli n Eleanor Staph Aureus : Aerobic Culture Organism: Staphylococcus [...] Clindamycin S F Aerobic Culture Performed at: [facility] Aerobic Culture Organism: Staphylococcus aureus : [...] Clindamycin Clindamycin S F Aerobic Culture [address], [place] [id number] Aerobic Culture Organism: Staphylococcus aureus : O:MRSA [...] F Clindamycin Clindamycin S F Aerobic Culture Hem Marker: Yung Saeed PhD, Phone: [phone] Aerobic Culture Organism: Staphylococcus aureus : O:MRSA [...] Culture Organism: Staphylococcus aureus : O:MRSA Isolated O:[facility] Isolated Organism: 2.1 Antibiotic Interpretation CHEN Status [...] Culture Organism: Staphylococcus aureus : O:MRSA Isolated O:[facility] Isolated Organism: 2.1 Antibiotic Interpretation CHEN Status [...] Culture Organism: Staphylococcus aureus : O:MRSA Isolated O:[facility] Isolated Organism: 2.1 Antibiotic Interpretation CHEN Status [...] Culture Organism: Staphylococcus aureus : O:MRSA Isolated O:[facility] Isolated Organism: 2.1 Antibiotic Interpretation CHEN Status [...] LC - [facility] LB SEE REPORT - Recreation Clerk Id information not found for OBX-specific video producer legend AFB Specimen Processing (Not yet [...] Fungus Stain Performing Lab: see note - [facility] Fungus (Mycology) Culture (N ot yet [...] (Mycology) Culture Fungus (Mycology) Culture Performed at: [facility] Fungus (Mycology) Culture Fungus (Mycology) Culture [address], [place] [id number] Fungus (Mycology) Culture Fungus (Mycology) Culture Hem Marker: Tyron Saeed PhD, Phone: [phone] Fungus (Mycology) Culture Performing Lab: see note [facility] SEE REPORT - Recreation Clerk Id information not found for OBX-specific video producer legend Fungus Stain (Not yet review ed by provider) Interpretation: Performing Lab: Notes/Report: [facility] , Fungus Stain See Below For Report Fungus Stain Fungus Stain ERICK/Calcofluor preparation: no fungus observed. Fungus Stain Performing Lab: see note [facility] LB Acid Fast Culture (Not yet r [...] been initiated. Acid Fast Culture Performed at: [facility] Acid Fast Culture Specimen has been received and testing has been initiated. Acid Fast Culture [address], [place] [id number] Acid Fast Culture Specimen has been received and testing has been initiated. Acid Fast Culture Hem Marker: Yung Saeed PhD, Phone: [phone] Acid Fast Culture Specimen has been received and testing has been initiated. Performing Lab: see note LC - [facility] LB SEE REPORT - Recreation Clerk Id information not found for OBX-specific video producer legend Acid Fast Smear (Not yet rev iewed by provider) Interpretation: Performing Lab: Notes/Report: Comment right foot [facility] , Acid Fast Smear See Below For Report Acid Fast Smear Negative Performing Lab: see note LC - [facility] LB AFB Specimen Processing (Not yet reviewed by provider) Interpretation: Performing Lab: Notes/Report: [facility] , AFB Specimen Processing See Below For Report AFB Specimen Processing AFB Specimen Processing Direct Inoculation AFB Specimen Processing Performing Lab: see note LC - [facility] LB Fungus Stain (Not yet review ed by provider) Interpretation: Performing Lab: Notes/Report: [facility] , Fungus Stain See Below For Report Fungus Stain Fungus Stain ERICK/Calcofluor preparation: no fungus observed. Fungus Stain Performing Lab: see note LC - [facility] LB Fungus (Mycology) Culture (N [...] (Mycology) Culture Fungus (Mycology) Culture Performed at: [facility] Fungus (Mycology) Culture Fungus (Mycology) Culture [address], [place] [id number] Fungus (Mycology) Culture Fungus (Mycology) Culture Hem Marker: Tyron Saeed PhD, Phone: [phone] Fungus (Mycology) Culture Performing Lab: see note LC - [facility] LB SEE REPORT - Recreation Clerk Id information not found for OBX-specific video producer legend Aerobic Culture (Not yet rev [...] Interpretation CHEN Status Aerobic Culture Performed at: [facility] Organism: Staphylococcus aureus : O:MRSA Isolated O:STAAUR Isolated Organism: 1.1 Antibiotic Interpretation CHEN Status Aerobic Culture [address], [place] [id number] Aerobic Culture Organism: Staphylococcus aureus : O:MRSA Isolated O:STAAUR Isolated Organism: 1.1 Antibiotic Interpretation CHEN Status Aerobic Culture Hem Marker: Yung Saeed PhD, Phone: [phone] Aerobic Culture Organism: Staphylococcus aureus : O:MRSA [...] LC - [facility] SEE REPORT - Recreation Clerk Id information not found for OBX-specific video producer legend XR foot RT min 3V (Not yet r eviewed by provider) Interpretation: Performing Lab: Notes/Report: Source Facility: [place] [address] XRay Report Signed Patient: TYLER SMITH MR#: [id number] : 1960 Acct:[id number] Age/Sex: 63 / M ADM Date: 04/08/24 Loc: SURGOUT Attending Dr: Curt Curtis D.P.M. Ordering Physician: Curt Curtis D.P.M. Date of Service: 04/08/24 Procedure(s): XR foot RT min 3V Accession Number(s): [id number] cc: Curt Curtis D.P.M.; DARA QUIN[place]NA [place] [address] Patient Name: TYLER SMITH MRN: [id number] date: 1960 Sex: M Assigned Patient Location: [facility] Current Patient Location: [facility] Accession/Order Number: [id number] Exam Date: 04/08/2024 14:30 Report Date: 04/12/2024 [...] Preston Milan M.D. Signed By: 04/12/2448 DD/ 5 TD/TT: Bottom Buffer: [place] [address] XRay Report Signed Patient: TYLER SMITH MR#: [id number] : 1960 Acct:[id number] Age/Sex: 63 / M ADM Date: 04/08/24 Loc: SURGOUT Attending Dr: Curt Curtis D.P.M. Ordering Physician: Curt Curtis D.P.M. Date of Service: 04/08/24 Procedure(s): XR cyndie t RT min 3V Accession Number(s): [id number] cc: Curt Curtis D.P.M.; DARA QUIN[place]NA [place] [address] Patient Name: TYLER SMITH MRN: [id number] date: 1960 Sex: M Assigned Patient Location: [facility] Current Patient Location: [facility] Accession/Order Numb er: [id number] Exam Date: 04/08/2024 14:30 Report Date: 04/12/2024 [...] Miguel Milan M.D. Signed By: 04/12/2448 DD/ 5 TD/TT: Bottom Buffer: AFB Specimen Processing (Not yet reviewed by provider) Interpretation: Performing Lab: Notes/Report: [facility] , AFB Specimen Processing See Below For Report AFB Specimen Processing AFB Specimen Processing Tissue Grinding AFB Specimen Processing Performing Lab: see note [facility] Gram Stain Result (Not yet r eviewed by provider) Interpretation: Performing Lab: Notes/Report: Specimen Comment: Test(s) Tissue Culture called to [facility] on 04/10/2024 at Specimen Comment: 13:06 EST [facility] , Gram Stain Result See Below For Report Gram Stain Result Gram Stain Result No white blood cells seen. Gram Stain Result Gram Stain Result Gram Stain Result Gram Stain Result No organisms seen Gram Stain Result Gram Stain Result Performed at: [facility] Gram Stain Result Gram Stain Result [address], [place] [id number] Gram Stain Result Gram Stain Result Hem Marker: Yung Saeed PhD, Phone: [phone] Gram Stain Result Performing Lab: see note - [facility] SEE REPORT - Recreation Clerk Id information not found for OBX-specific video producer legend Tissue Culture (Not yet revi ewed by provider) Interpretation: Performing Lab: Notes/Report: Specimen Comment: Test(s) Tissue Culture called to [facility] on 04/10/2024 at Specimen Comment: 13:06 EST [facility] , Tissue Culture See Below For [...] F Tissue Culture Serratia marcescens Tissue Culture O:ROSELIA Isolated Organism: 3.1 Antibiotic [...] xazole S F Performing Lab: see note - [facility] SEE REPORT - Recreation Clerk Id information not found for OBX-specific video producer legend Anaerobic Cult, [employer] ub (Not yet reviewed by provider) Interpretation: Performing Lab: Notes/Report: Specimen Comment: Test(s) Tissue Culture called to [facility] on 04/10/2024 at Specimen Comment: 13:06 EST [facility] , Anaerobic Cult, Extended [employer]ub See Below For Report Anaerobic Cult, Extended Incub No anaerobes recovered. Performing Lab: see note - [facility] Gram Stain Result (Not yet r eviewed by provider) Interpretation: Performing Lab: Notes/Report: Specimen Comment: Test(s) Tissue Culture called to [facility] on 04/10/2024 at Specimen Comment: 13:06 EST [facility] , Gram Stain Result See Below For Report Gram Stain Result Gram Stain Result No white blood cells seen. Gram Stain Result Gram Stain Result Gram Stain Result Gram Stain Result No organisms seen Gram Stain Result Gram Stain Result Performed at: [facility] Gram Stain Result Gram Stain Result [address], [place] [id number] Gram Stain Result Gram Stain Result Hem Marker: Yung Saeed PhD, Phone: [phone] Gram Stain Result Performing Lab: see note - [facility] SEE REPORT - Recreation Clerk Id information not found for OBX-specific video producer legend Reason For Referral No Information Medications Medication [...] ulcer due to type 2 diabetes mellitus (2547093173716) Type 2 diabetes mellitus with foot ulcer (E11.621) Active confirmed Problem Chronic ulcer of lower extremity (03402537) Non-pressure chronic ulcer of other part of right lower leg limited to breakdown of skin (L97.811) Active confirmed Problem Chronic non-pressure ulcer of calf extending to fat level (9546940993762589 1) Non-pressure chronic ulcer of other part of right lower leg with fat layer exposed (L97.812) Active confirmed Problem Non-pressure chronic ulcer of other part of left lower leg with fat layer exposed (L97.822) Active confirmed Problem Acute exacerbation of chronic obstructive airways disease (954334280) COPD exacerbation (J44.1) Active confirmed Problem 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 with ulcer (I87.313) Active confirmed Problem Ulcer of left lower leg (disorder) (1329892490173313 3) Leg ulcer, left, limited to breakdown of skin (L97.921) Active confirmed Problem Acute osteomyelitis of ankle and/or foot (746935476) Acute osteomyelitis of right ankle or foot [...] stump (T87.89) Active confirmed Problem Diabetes mellitus (29556192) Diabetes mellitus (E11.9) Active confirmed Problem Polyneuropathy due to type 2 diabetes mellitus (432833176) Controlled type 2 diabetes mellitus with diabetic polyneuropathy, unspecified whether terminal system operator insulin use (E11.42) Active confirmed Problem Polyneuropathy due to type 2 diabetes mellitus (851751565) 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
--- OUTSIDE RECORDS SUMMARY | 2025-03-07 14:33 | XMS_ITS | Encounter Summary ---
Author Organization [facility] Address [address] [place] [address] Care Team Providers Care Grade School Teacher Name Role Phone Dara Eisenberg BILINGUAL INTERPRETER Primary Care Provider Encounter Details Date Type Department Care Team ([facility] Contact Info) Description 01/26/2025 Abstract [facility] [address] [place] [id number] Sina Mckeon, DPM FACFAS [address] [place] [address] Social History Tobacco Use Types Packs/Day Years [...] on filedocumented in this encounter Care Teams Grade School Teacher Relationship Specialty Start Date End Date Dara Eisenberg NP [address] [facility] [place] [address] PCP - General Family Medicine 11/11/24 documented as of this encounter
--- OUTSIDE RECORDS SUMMARY | 2025-03-07 14:33 | XMS_ITS | Clinical Summary ---
Author Organization [facility] Address [address] [place] [address] Care Team Providers Care Hospice Entrance Attendant Name Role Phone No, Physician Primary Care [...] - 1-dose 75+ series) 2033 Care Teams Hospice Entrance Attendant Relationship Specialty Start Date End Date No, Physician [facility] PCP - General 10/04/16
--- OUTSIDE RECORDS SUMMARY | 2025-03-07 14:34 | XMS_ITS | Clinical Summary ---
Author Organization [facility] Address [address] [facility] [place] [address] Care Team Providers Care Custom Dressmaker Name Role Phone Dara Eisenberg NP Primary Care Provider Encounters Date Type Department Care Team Description 01/26/2025 Abstract [facility] [address] [place] [address] Sina Mckeon, DPM FACFAS from Last 3 Months Social History Tobacco Use Types Packs/Day Years Used Date Smoking Tobacco: Never Assessed Sex and Gender Information Value Date Recorded Sex Assigned at Not on file Legal Sex Male 7:20 PM EDT Gender Identity Not on file Sexual Orientation Not on file Plan of Treatment Not on file Insurance [employer] MEDICARE Care Teams Custom Dressmaker Relationship Specialty Start Date End Date Dara Eisenberg NP [address] [place] [id number] PCP - General Family Medicine 11/11/24
--- OUTSIDE RECORDS SUMMARY | 2025-03-07 15:51 | XMS_ITS | CCD ---
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 [address] [facility], [place] [address] [phone] [facility] (1) [address] [place] [address], [facility] [place] [address] [phone] Business (1) 01/31/2025 11:00 AM Comments: Call Dr for diagnosis based follow up With: Address: When: [facility] [phone] With: Address: When: OZZIE ROSEN [address] [facility], [address] [place] [address] Business (1) Within 4 weeks Comments: Call for followup appointment With: Address: When: Follow up as scheduled with [facility] With: Address: When: [facility] [address] [place], [place] [phone] Business (1) Within 3 to 5 days Comments: Call for followup appointment Patient Education Information: Atrial Fibrillation; Type 2 Diabetes Mellitus, Diagnosis, Adult; Sepsis, Diagnosis, Adult; Atrial Fibrillation; Cellulitis, Adult; Cellulitis, Adult, [id number]; Bleeding Varicose Veins Normal [facility] Inpatient Patient Summaryon 01-26-2025 Inpatient Patient Summary Inpatient Patient Summary [address] [address] Patient Discharge Instructions PERSON INFORMATION Name: TYLER MCKINNEY Date of : 1960 Current Date: 01/26/2025 16:16:53 PHYSICIANS Admitting Physician: Ghassan Ding III, DO Primary Care Physician: DARA EISENBERG CNP PCP Phone Number: [phone] Comment: Discharge Diagnosis: 1:Severe sepsis; 2:Cellulitis of leg; 3:KRISTINE (acute kidney injury); 4:Atrial fibrillation with RVR; 5: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; 6:Hyponatremia; 7:Noncompliance with medications; 8:Insulin dependent type 2 diabetes mellitus; 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 Condition at Discharge: TYLER Neumann has been given the following list of follow-up instructions, prescriptions, and patient education materials: PATIENT FOLLOW-UP INFORMATION Diet: Regular Discharge Activity: Ambulate as tolerated Discharge Restrictions: Wound Care Instructions: Remove Your Dressing In Days Call Your Doctor For: IF UNABLE TO CONTACT YOUR PHYSICIAN AND YOU FEEL IT IS AN EMERGENCY, GO TO THE NEAREST EMERGENCY ROOM OR CALL 911 Home Treatment: Devices/Equipment: Oxygen, Shower chair, Walker, Wheelchair, Other: danette lift Special Services: Additional Instructions: Return to the ER if symptoms return or worsen Primary Care Physician to provide the following pending test results: Blood culture Follow up: With: Address: When: [facility] [phone] With: Address: When: OZZIE ROSEN [address] [place] [address], [address] [place] [address] Business (1) Within 4 weeks Comments: Call for followup appointment With: Address: When: Follow up as scheduled with [facility] With: Address: When: [facility] [address] [place] [phone] Business (1) Within 3 to 5 days Comments: Call for followup appointment With: Address: When: DARA EISENBERG [address], [place] [address] [phone] [facility] (1) In 3 days 01/27/2025 Comments: Call Dr for diagnosis based follow up In the event that this physician does not participate in your insurance network, please consult with your insurance company to find a nearby participating provider. Comment: LUIS Booker EARL, have received the attached patient education materials/instruction s and have verbalized understanding: Patient Signature Date Clinican/Nurse Signature Date HERE ARE THE MEDICATION CHANGES THAT OCCURRED DURING YOUR HOSPITAL STAY New Medications [facility], [address], [place] [id number], [phone] cephalexin (cephalexin 500 mg Cap) 1 Capsules By Mouth every 6 hours for 10 Days. Refills: 0. Last Dose: ____Next Dose: ____ insulin glargine (Insulin Glargine Solostar Pen 100 units/mL subcutaneous solution) 30 Units Subcutaneous every day. Refills: 1. Last Dose: ____Next Dose: ____ Misc Prescription (Pen Needle 31G x 6mm) Pen Needle 31G x 6mm for use with insulin pen for once daily long acting insulin. Refills: 1. Last Dose: ____Next Dose: ____ Misc Prescription (Single Use Alcohol Pad) Single Use Alcohol Pad - Use once daily prior to injection.. Refills: 1. Last Dose: ____Next Dose: ____ oxycodone (oxyCODONE 5 mg Tab) 1 Tablets By Mouth every 8 hours as needed for pain for 5 Days. Refills: 0. Last Dose: ____Next Dose: ____ warfarin (warfarin 5 mg Tab) 1 Tablets By Mouth every day for 21 Days. Refills: 0. Patient instructions: Follow up with anticoagulation clinic for dosing as outpatient - will send referral Last Dose: ____Next Dose: ____ Medications to Continue with No Changes Other Medications atorvastatin (atorvastatin 80 mg Tab) 1 Tablets By Mouth every day. Last Dose: ____Next Dose: ____ furosemide (furosemide 40 mg Tab) TAKE 1 TABLET BY MOUTH EVERY DAY FOR 90 DAYS. Last Dose: ____Next Dose: ____ gabapentin (gabapentin 300 mg Cap) TAKE 2 CAPSULES BY MOUTH IN THE MORNING,1 CAPSULE IN THE AFTERNOON,AND 2 CAPSULES IN THE EVENING. Last Dose: ____Next Dose: ____ glipiZIDE (glipiZIDE 5 mg Tab) 1 Tablets By Mouth every day. Last Dose: ____Next Dose: ____ metoprolol (Metoprolol tartrate 50 mg Tab) 1 Tablets By Mouth 2 times a day. Last Dose: ____Next Dose: ____ quetiapine (quetiapine 50 mg oral tablet) TAKE 1 TABLET BY MOUTH EVERY DAY FOR 90 DAYS. Last Dose: ____Next Dose: ____ C (more content not included)... Normal [facility] Interdisciplinary Note - Giovany e Manageron 01-26-2025 Interdisciplinary Note - Home Inspector Interdisciplinary Note - Home Inspector Chart reviewed and patient previously rounded on by KALI Carson. Per [facility] portal multiple referrals were put into [facility] for HHC and [facility] was the only one able to accept at this time due to insurance type but they will need to do a delay of SOC. Since no other agency available to accept patient at this time we will do delay SOC for patient and also added in Paramed consult due to the delay of SOC for HHC. Per chart patient already has home O2 set up at 5L and CM will continue to follow for any additional discharge needs at this time. PT /OT recs are for HHC at [facility] and CM rounded with attending Dr Ding and plan is PO ATB at discharge. CM will continue to follow closely for discharge needs. IMM copy at bedside. Normal [facility] Comment on above: Result Comment: Elec tronically Signed By: Sarah Snyder I\.br\Date and Time Signed: 01/26/25 11:38 EDT PTon 01-26-2025 INR Coag (PPP) [Relative time] 0.97 {INR} Invalid Interpretation Code [facility] Comment on above: Result Comment: INR results are specifically intended to assess patients stabilized on long-term Anticoagulation therapy suggested INR???s ???Less Intensive Anticoagulation??? 2.0 ??? 3.0 Conventional Range 3.0 ??? 4.5 Performed By: #### 2 [id number] #### [facility] [address] [place] [address] PT 10.9 second(s) Normal 9.4-12.5 [facility] Comment on above: Result Comment: 15 d ays - 4 weeks 1 - 5 months 6 -11 months 1 ??? 5 years 6 ??? 10 years 11 -17 years Mean: 11.2 (9.5 ??? 12.6) Mean: 11.0 (9.7 ??? 12.8) Mean: 11.0 (9.8 ??? 13.0) Mean: 11.3 (9.9 ??? 13.4) Mean: 11.7 (10.0 ??? 14.6) Mean: 11.8 (10.0 - 14.1) Pediatric Reference ranges were obtained from a study by jessica Ortiz al. prepared from 1437 samples obtained at 7 different centers using the same coagulation reagent and instrumentation as [facility]. Currently there are no coagulation studies available worldwide for children to 14 days, and no normal ranges. Performed By: #### 2 [id number] #### [facility] [address] [place] [address] eGFRon 01-26-2025 eGFR 97 mL/min/1.73 m2 Normal >=59 [facility] Comment on above: Performed By: #### 1 [id number] #### [facility] [address] [place] [address] CBC w/ Auto Diffon 5 Basophil Absolute 0.1 E9/L Normal 0.0-0.2 [facility] Comment on above: Performed By: #### 2 [id number] #### [facility] [address] [place] [address] Basophils/100 WBC (Bld) 0.9 % Normal 0.0-2.0 [facility] Comment on above: Performed By: #### 2 [id number] #### [facility] [address] [place] [address] Eos Absolute 0.1 E9/L Normal 0.0-0.5 [facility] Comment on above: Performed By: #### 2 [id number] #### [facility] [address] [place] [address] Eosinophils/100 WBC (Bld) 0.9 % Normal 0.0-8.0 [facility] Comment on above: Performed By: #### 2 [id number] #### [facility] [address] [place] [address] Erythrocyte distribution width (RBC) [Ratio] 17.1 % High 10.9-14.2 [facility] Comment on above: Performed By: #### 2 [id number] #### [facility] [address] [place] [address] Hematocrit (Bld) [Volume fraction] 38.3 % Normal 37.7-49.0 [facility] Comment on above: Performed By: #### 2 057212 #### [facility] [address] [place] [address] Hemoglobin (Bld) [Mass/Vol] 13.2 g/dL Low 13.5-17.5 [facility] Comment on above: Performed By: #### 2 [id number] #### [facility] [address] [place] [address] Lymph Absolute 1.1 E9/L Normal 1.0-4.0 [facility] Comment on above: Performed By: #### 2 [id number] #### [facility] [address] [place] [address] Lymphocytes/100 WBC (Bld) 9.3 % Low 14.0-50.0 [facility] Comment on above: Performed By: #### 2 [id number] #### [facility] [address] [place] [address] MCH (RBC) [Entitic mass] 31.6 pg Normal 27.0-34.0 [facility] Comment on above: Performed By: #### 2 [id number] #### [facility] [address] [place] [address] MCHC (RBC) [Mass/Vol] 34.5 g/dL Normal 31.4-36.0 [facility] Comment on above: Performed By: #### 2 191088 #### [facility] [address] [place] [address] MCV (RBC) [Entitic vol] 91.5 fL Normal 80.0-100.0 [facility] Comment on above: Performed By: #### 2 [id number] #### [facility] [address] [place] [address] [place] Absolute 1.2 E9/L High 0.2-1.[address] [facility] Comment on above: Performed By: #### 2 [id number] #### [facility] [address] [place] [address] Monocytes/100 WBC (Bld) 10.0 % Normal 4.0-14.0 [facility] Comment on above: Performed By: #### 2 244123 #### [facility] [address] [place] [address] Neutro Absolute 9.1 E9/L High 2.0-7.5 [facility] Comment on above: Performed By: #### 2 127319 #### [facility] [address] [place] [address] Neutro Auto 78.9 % High 36.0-75.0 [facility] Comment on above: Performed By: #### 2 [id number] #### [facility] [address] [place] [address] Platelet 228.0 E9/L Normal 150.0-500.0 [facility] Comment on above: Performed By: #### 2 101224 #### [facility] [address] [place] [address] Platelet mean volume (Bld) [Entitic vol] 8.9 fL Normal 6.4-10.8 [facility] Comment on above: Performed By: #### 2 [id number] #### [facility] [address] [place] [address] RBC 4.2 E12/L Low 4.3-5.9 [facility] Comment on above: Performed By: #### 2 351991 #### [facility] [address] [place] [address] WBC 11.5 E9/L High 4.0-11.0 [facility] Comment on above: Performed By: #### 2 [id number] #### [facility] [address] [place] [address] CKon 01-25-2025 Total CK 64 Int._Unit/L Normal 14-261 [facility] Comment on above: Performed By: #### 2 187736 #### [facility] [address] [place] [address] CMPon 01-25-2025 Albumin [Mass/Vol] 2.9 g/dL Low 3.3-5.0 [facility] Comment on above: Performed By: #### 2 [id number] #### [facility] [address] [place] [address] Albumin/Globulin [Mass ratio] 1.0 {ratio} Low 1.1-2.2 [facility] Comment on above: Performed By: #### 2 239091 #### [facility] [address] [place] [address] Alk Phos 85 Int._Unit/L Normal 21-98 [facility] Comment on above: Performed By: #### 2 [id number] #### [facility] [address] [place] [address] ALT 16 Int._Unit/L Normal 6-46 [facility] Comment on above: Performed By: #### 2 772587 #### [facility] [address] [place] [address] Anion gap [Moles/Vol] 11 mmol/L Normal 6-16 [facility] Comment on above: Performed By: #### 2 595902 #### [facility] [address] [place] [address] AST 12 Int._Unit/L Normal 5-43 [facility] Comment on above: Performed By: #### 2 [id number] #### [facility] [address] [place] [address] Bili Total 0.5 mg/dL Normal 0.0-1.1 [facility] Comment on above: Performed By: #### 2 628862 #### [facility] [address] [place] [address] BUN/Creat Ratio 37 No Units High 10-20 [facility] Comment on above: Performed By: #### 2 135369 #### [facility] [address] [place] [address] Calcium [Mass/Vol] 8.9 mg/dL Normal 8.9-11.1 [facility] Comment on above: Performed By: #### 2 340575 #### [facility] [address] [place] [address] Chloride [Moles/Vol] 100 mmol/L Low 101-111 [facility] Comment on above: Performed By: #### 2 079838 #### [facility] [address] [place] [address] CO2 [Moles/Vol] 25 mmol/L Normal 21-31 [facility] Comment on above: Performed By: #### 2 909085 #### [facility] [address] [place] [address] Creatinine [Mass/Vol] 1.2 mg/dL Normal 0.5-1.3 [facility] Comment on above: Performed By: #### 2 [id number] #### [facility] [address] [place] [address] Globulin (S) [Mass/Vol] 2.8 g/dL Normal 1.4-4.0 [facility] Comment on above: Performed By: #### 2 954309 #### [facility] [address] [place] [address] Glucose [Mass/Vol] 345 mg/dL High 55-199 [facility] Comment on above: Performed By: #### 2 431101 #### [facility] [address] [place] [address] Potassium [Moles/Vol] 3.6 mmol/L Normal 3.5-5.3 [facility] Comment on above: Performed By: #### 2 691139 #### [facility] [address] [place] [address] Protein [Mass/Vol] 5.7 g/dL Low 6.0-7.8 [facility] Comment on above: Performed By: #### 2 722785 #### [facility] [address] [place] [address] Sodium [Moles/Vol] 132 mmol/L Low 135-145 [facility] Comment on above: Performed By: #### 2 274870 #### [facility] [address] [place] [address] Urea nitrogen [Mass/Vol] 44 mg/dL High 5-21 [facility] Comment on above: Performed By: #### 2 [id number] #### [facility] [address] [place] [address] Capillary Glucose POCon 07 Glucose [Mass/Vol] 357 mg/dL High 55-99 [facility] Comment on above: Result Comment: Cindy calle RN/ Performed By: #### 2 [id number] #### [facility] [address] [place] [address] Glucose [Mass/Vol] 351 mg/dL High 55-99 [facility] Comment on above: Result Comment: Cindy GAMBOA Performed By: #### 2 [id number] #### [facility] [address] [place] [address] Glucose [Mass/Vol] 277 mg/dL High 55-99 [facility] Comment on above: Result Comment: Cindy GAMBOA Performed By: #### 2 [id number] #### [facility] [address] [place] [address] Glucose [Mass/Vol] 289 mg/dL High 55-99 [facility] Comment on above: Result Comment: Cindy GAMBOA Performed By: #### 2 [id number] #### [facility] [address] [place] [address] Glucose [Mass/Vol] 282 mg/dL High 55-99 [facility] Comment on above: Result Comment: Cindy GAMBOA Performed By: #### 2 [id number] #### [facility] [address] [place] [address] Glucose [Mass/Vol] 345 mg/dL High 55-99 [facility] Comment on above: Performed By: #### 2 [id number] #### [facility] [address] [place] [address] Glucose [Mass/Vol] 466 mg/dL Abnormal 55-99 [facility] Comment on above: Performed By: #### 2 [id number] #### [facility] [address] [place] [address] [id number] 01-25-2025 HbA1c (Bld) [Mass fraction] 12.6 % High <=5.9 [facility] Comment on above: Performed By: #### 7 [id number] #### [facility] [address] [place] [address] Interdisciplinary Note - Giovany e Manageron 01-25-2025 Interdisciplinary Note - Home Inspector Interdisciplinary Note - Home Inspector JOSÉ spoke with patient in room. No family in room. Patient is alert and oriented and participates in discharge planning. Patient is from home lives with friend Sam. Dr. Ding is following, see notes, saw patient earlier today. Patient was admitted on 01/24/25 , dx with sepsis. Has a consult with Environmental Health Physician. Patient verified PCP, insurance and DME, FWW and w/c. He is on 51/2L 02, he reports having at home usually on 5L. PT rec. PT has had devoted previously. There was a consult for social concerns. He reports feeling safe at home and was not interested in any resources. IMM was completed on 01/24/25. Reviewed Medicare rights, denies any questions. This patient will in a few days and will need transport home. Patient white board updated, and SW contact information provided. JOSÉ attempted again determine where 02 was obtained from. He was very firm that she has his own machine that came for a private individual. He reports that he does not have Sam's number as he does not have his phone. He is not sure if Sam is aware that he is at the hospital. CORRECTION: HE HAS HIS OWN MACHINE Normal [facility] Comment on above: Result Comment: Elec tronically Signed By: Yamileth Cali\.marco\Date and Time Signed: 01/25/25 14:53 EDT Interdisciplinary Note - Home Inspector Interdisciplinary Note - Home Inspector JOSÉ spoke with patient in room. No family in room. Patient is alert and oriented and participates in discharge planning. Patient is from home lives with friend Sam. Dr. Ding is following, see notes, saw patient earlier today. Patient was admitted on 01/24/25 , dx with sepsis. Has a consult with Environmental Health Physician. Patient verified PCP, insurance and DME, FWW and w/c. He is on 51/2L 02, he reports having at home usually on 5L. PT rec. HH PT has had devoted previously. There was a consult for social concerns. He reports feeling safe at home and was not interested in any resources. IMM was completed on 01/24/25. Reviewed Medicare rights, denies any questions. This patient will in a few days and will need transport home. Patient white board updated, and SW contact information provided. Normal [facility] Comment on above: Result Comment: Elec tronically Signed By: Zuleyma VALADEZ, Yamileth\.br\Date and Time Signed: 01/25/25 10:44 EDT PTon 01-25-2025 INR Coag (PPP) [Relative time] 1.00 {INR} Invalid Interpretation Code [facility] Comment on above: Result Comment: INR results are specifically intended to assess patients stabilized on long-term Anticoagulation therapy suggested INR???s ???Less Intensive Anticoagulation??? 2.0 ??? 3.0 Conventional Range 3.0 ??? 4.5 Performed By: #### 2 [id number] #### [facility] [address] [place] [address] PT 11.2 second(s) Normal 9.4-12.5 [facility] Comment on above: Result Comment: 15 d ays - 4 weeks 1 - 5 months 6 -11 months 1- 5 years 6-10 years 11 -17 years Mean: 11.2 (9.5-12.6) Mean: 11.0 (9.7-12.8) Mean: 11.0 (9.8-13.0) Mean: 11.3 (9.9-13.4) Mean: 11.7 (10.0-14.6) Mean: 11.8 (10.0 - 14.1) Pediatric Reference ranges were obtained from a study by Shimon Tabor et al. prepared from 1437 samples obtained at 7 different centers using the same coagulation reagent and instrumentation as [facility]. Currently there are no coagulation studies available worldwide for children to 14 days, and no normal ranges. Performed By: #### 2 [id number] #### [facility] [address] [place] [address] eGFRon 01-25-2025 eGFR 67 mL/min/1.73 m2 Normal >=59 [facility] Comment on above: Performed By: #### 1 [id number] #### [facility] [address] [place] [address] BMPon 01-24-2025 Anion gap [Moles/Vol] 12 mmol/L Normal 6-16 [facility] Comment on above: Performed By: #### 2 [id number] #### [facility] [address] [place] [address] BUN/Creat Ratio 41 No Units High 10-20 [facility] Comment on above: Performed By: #### 2 [id number] #### [facility] [address] [place] [address] Calcium [Mass/Vol] 8.7 mg/dL Low 8.9-11.1 [facility] Comment on above: Performed By: #### 2 [id number] #### [facility] [address] [place] [address] Chloride [Moles/Vol] 95 mmol/L Low 101-111 [facility] Comment on above: Performed By: #### 2 [id number] #### [facility] [facility] [address] [place] [address] CO2 [Moles/Vol] 25 mmol/L Normal 21-31 [facility] Comment on above: Performed By: #### 2 [id number] #### [facility] [address] [place] [address] Creatinine [Mass/Vol] 1.4 mg/dL High 0.5-1.3 [facility] Comment on above: Performed By: #### 2 [id number] #### [facility] [address] [place] [address] Glucose [Mass/Vol] 431 mg/dL High 55-199 [facility] Comment on above: Performed By: #### 2 [id number] #### [facility] [address] [place] [address] Potassium [Moles/Vol] 3.8 mmol/L Normal 3.5-5.3 [facility] Comment on above: Performed By: #### 2 [id number] #### [facility] [address] [place] [address] Sodium [Moles/Vol] 128 mmol/L Low 135-145 [facility] Comment on above: Performed By: #### 2 [id number] #### [facility] [address] [place] [address] Urea nitrogen [Mass/Vol] 57 mg/dL High 5-21 [facility] Comment on above: Performed By: #### 2 [id number] #### [facility] [address] [place] [address] CBC w/ Auto Diffon 5 Basophil Absolute 0.1 E9/L Normal 0.0-0.2 [facility] Comment on above: Performed By: #### 2 [id number] #### [facility] [address] [place] [address] Basophils/100 WBC (Bld) 0.5 % Normal 0.0-2.0 [facility] Comment on above: Performed By: #### 2 [id number] #### [facility] [address] [place] [address] Eos Absolute 0.1 E9/L Normal 0.0-0.5 [facility] Comment on above: Performed By: #### 2 [id number] #### [facility] [address] [place] [address] Eosinophils/100 WBC (Bld) 0.5 % Normal 0.0-8.0 [facility] Comment on above: Performed By: #### 2 [id number] #### [facility] [address] [place] [address] Erythrocyte distribution width (RBC) [Ratio] 17.1 % High 10.9-14.2 [facility] Comment on above: Performed By: #### 2 [id number] #### [facility] [address] [place] [address] Hematocrit (Bld) [Volume fraction] 43.6 % Normal 37.7-49.0 [facility] Comment on above: Performed By: #### 2 [id number] #### [facility] [address] [place] [address] Hemoglobin (Bld) [Mass/Vol] 14.6 g/dL Normal 13.5-17.5 [facility] Comment on above: Performed By: #### 2 [id number] #### [facility] [address] [place] [address] Lymph Absolute 1.1 E9/L Normal 1.0-4.0 [facility] Comment on above: Performed By: #### 2 [id number] #### [facility] [address] [place] [address] Lymphocytes/100 WBC (Bld) 6.1 % Low 14.0-50.0 [facility] Comment on above: Performed By: #### 2 [id number] #### [facility] [address] [place] [address] MCH (RBC) [Entitic mass] 30.8 pg Normal 27.0-34.0 [facility] Comment on above: Performed By: #### 2 [id number] #### [facility] [address] [place] [address] MCHC (RBC) [Mass/Vol] 33.6 g/dL Normal 31.4-36.0 [facility] Comment on above: Performed By: #### 2 [id number] #### [facility] [address] [place] [address] MCV (RBC) [Entitic vol] 91.8 fL Normal 80.0-100.0 [facility] Comment on above: Performed By: #### 2 [id number] #### [facility] [address] [place] [address] [place] Absolute 1.3 E9/L High 0.2-1.[address] [facility] Comment on above: Performed By: #### 2 [id number] #### [facility] [address] [place] [address] Monocytes/100 WBC (Bld) 7.6 % Normal 4.0-14.0 [facility] Comment on above: Performed By: #### 2 [id number] #### [facility] [address] [place] [address] Neutro Absolute 14.8 E9/L High 2.0-7.5 [facility] Comment on above: Performed By: #### 2 [id number] #### [facility] [address] [place] [address] Neutro Auto 85.3 % High 36.0-75.0 [facility] Comment on above: Performed By: #### 2 [id number] #### [facility] [address] [place] [address] Platelet 269.0 E9/L Normal 150.0-500.0 [facility] Comment on above: Performed By: #### 2 [id number] #### [facility] [address] [place] [address] Platelet mean volume (Bld) [Entitic vol] 8.7 fL Normal 6.4-10.8 [facility] Comment on above: Performed By: #### 2 [id number] #### [facility] [address] [place] [address] RBC 4.8 E12/L Normal 4.3-5.9 [facility] Comment on above: Performed By: #### 2 [id number] #### [facility] [address] [place] [address] WBC 17.4 E9/L High 4.0-11.0 [facility] Comment on above: Performed By: #### 2 [id number] #### [facility] [address] [place] [address] Capillary Glucose POCon 07-0 Glucose [Mass/Vol] 490 mg/dL Abnormal 55-99 [facility] Comment on above: Result Comment: Cindy calle RN/MD Performed By: #### 2 [id number] #### [facility] [address] [place] [address] ED Clinical Summaryon 2024 ED Clinical Summary ED Clinical Summary [address] [address] ED Clinical Summary Person Information [facility]: [facility] Age: 64 Years : 1960 Sex: Male Language: Nigerian PCP: DARA EISENBERG CNP Marital Status: Single Phone: [phone] Visit Id: Visit Reason: Medical problem - major; VERICOSE VEIN TOURNIQUET Speciality: Acuity: 2 Enc Type: Inpatient Med Service: Medical Arrival: 01/24/2025 11:29:33 Discharge: LOS: 000 07:25 Checkin: 01/24/2025 11:29:33 Checkout: 01/24/2025 18:54:25 Dispo Type: Admitted as IP to this [facility] EVENTS: Event Name Event Status Request Date/Time Start Date/Time Complete Date/Time Arrive Complete 01/24/2025 11:29:33 01/24/2025 11:29:33 01/24/2025 11:29:33 Document Home Meds Request 01/24/2025 11:29:33 Triage Complete 01/24/2025 11:29:33 01/24/2025 11:39:00 01/24/2025 11:39:00 Bed Assign Complete 01/24/2025 11:29:33 01/24/2025 11:29:33 01/24/2025 11:29:33 Dr Exam Complete 01/24/2025 11:29:33 01/24/2025 11:35:23 01/24/2025 11:35:23 RN Exam Complete 01/24/2025 11:29:33 01/24/2025 11:45:06 01/24/2025 11:45:06 Registration Complete 01/24/2025 11:35:23 01/24/2025 12:24:53 01/24/2025 12:24:53 Dr Exam Complete 01/24/2025 11:36:22 01/24/2025 11:36:22 01/24/2025 11:36:22 Meds Admin Complete 01/24/2025 12:16:10 01/24/2025 12:24:30 Discharge Cancel 01/24/2025 12:18:32 01/24/2025 13:54:25 Reg Complete Request 01/24/2025 12:24:53 Reg Bed Request Complete 01/24/2025 12:24:53 01/24/2025 12:24:53 01/24/2025 12:24:53 Meds Admin Complete 01/24/2025 12:55:57 01/24/2025 13:00:43 Meds Admin Complete 01/24/2025 13:56:21 01/24/2025 14:34:26 EKG Complete 01/24/2025 13:56:21 01/24/2025 14:35:34 X-Ray Complete 01/24/2025 13:56:21 01/24/2025 14:09:30 01/24/2025 14:37:35 Pending Labs Complete 01/24/2025 13:56:21 01/24/2025 15:13:07 Lab Complete 01/24/2025 13:56:21 01/24/2025 15:06:34 Patient Care Request 01/24/2025 13:56:21 Wet Read Request 01/24/2025 14:37:35 Pending Labs Complete 01/24/2025 14:40:35 01/24/2025 14:40:35 01/24/2025 15:05:56 Lab Complete 01/24/2025 14:40:35 01/24/2025 14:40:35 01/24/2025 15:05:56 Meds Admin Complete 01/24/2025 14:47:41 01/24/2025 15:16:42 Pending Labs Request 01/24/2025 15:17:57 Consult Request 01/24/2025 15:22:50 Pending Labs Cancel 01/24/2025 15:23:06 01/24/2025 15:29:44 Meds Admin Cancel 01/24/2025 15:23:06 01/24/2025 15:27:54 Hospitalist Consult Request 01/24/2025 15:23:06 Meds Admin Complete 01/24/2025 15:27:54 01/24/2025 15:56:59 Pending Labs Complete 01/24/2025 15:30:10 01/24/2025 15:30:10 01/24/2025 15:52:43 Pending Labs Collected 01/24/2025 15:47:19 01/24/2025 15:47:19 Pending Labs Complete 01/24/2025 15:57:14 01/24/2025 17:40:14 Lab Complete 01/24/2025 15:57:14 01/24/2025 17:40:14 Pending Labs Cancel 01/24/2025 16:00:22 01/24/2025 16:01:07 Lab Cancel 01/24/2025 16:00:22 01/24/2025 16:01:07 Pending Labs Inlab 01/24/2025 16:01:07 Lab Inlab 01/24/2025 16:01:07 Meds Admin Request 01/24/2025 16:07:43 Pending Labs Request 01/24/2025 17:29:54 Lab Request 01/24/2025 17:29:54 Meds Admin Complete 01/24/2025 17:36:34 01/24/2025 17:53:54 Patient Care Complete 01/24/2025 17:57:33 01/24/2025 18:02:32 Patient Care Request 01/24/2025 17:58:34 Pending Labs Collected 01/24/2025 17:58:35 Admit Request 01/24/2025 18:23:33 Patient Care Request 01/24/2025 18:23:33 Patient Care Request 01/24/2025 18:23:35 Patient Care Request 01/24/2025 18:23:35 Patient Care Request 01/24/2025 18:23:36 Patient Care Request 01/24/2025 18:23:36 Medicare Form Request 01/24/2025 18:23:37 Patient Care Request 01/24/2025 18:23:37 Patient Care Request 01/24/2025 18:23:37 ADDRESS: [address] [place] [address] PHYS DOC NOTES: MEDICAL INFORMATION: Prescriptions Given: New Medications [id number], [address], [place] [id number], [phone] doxycycline (doxycycline hyclate 100 mg Cap) 1 Capsules By Mouth 2 times a day for 7 Days. Refills: 0. PATIENT EDUCATION INFORMATION: Instructions: Cellulitis, Adult, [id number]; Bleeding Varicose Veins Follow up: With: Address: When: DARA EISENBERG [address], [address] [place] [phone] Business (1) In 3 days 01/27/2025 Comments: Call Dr for diagnosis based follow up DIAGNOSIS: 1:Severe sepsis; 2:Cellulitis of leg; 3:KRISTINE (acute kidney injury); 4:Atrial fibrillation with RVR; 5: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; 6:Hyponatremia; 7:Noncompliance with medications Normal [facility] ED Note-Physicianon 01-25-20 ED Note-Physician ED Note-Physician Basic Information Time Seen: Erich ROBBINS, Puneet Ellis. 01/24/2025 11:35 Chief Complaint Pt has two tourniquets on lower rt extremity anywhere between 50 min to an hr per EMS. pt has hx varicose veins. one burst in shower. no fall. History of Present Illness A 64-year-old male reports emerged department with concerns of right lower extremity bleed. Reports he thinks he had his varicose vein having bleeding in this leg. Reports history of cellulitis in his leg. He reports 1 burst in the shower. Reports that he is not having any symptoms. Squad did report 2 tourniquets on the lower right extremity due to the bleeding. Reports he is on blood thinners but is unsure which ones he is on. He denies any pain at this time. Also concern about skin infection which has been chronic of his legs, because he is a diabetic, but would like some antibiotics. Denies any fevers chills nausea or vomiting. Review of Systems No other aggravating or relieving factors no other associated symptoms no other prior treatments or complaints. Family: Reviewed and noncontributory Social: lives at home Review of systems negative unless otherwise specified in the HPI. Physical Exam Vitals & Measurements T: 36.6 ???C(Oral) HR: 98(Peripheral) RR: 16 BP: 115/70 SpO2: 92% HT: 180 cm WT: 135 kg BMI: 41.67 General: The patient appears well and in no apparent distress. Patient is resting comfortably on chair. afebrile. kin: Warm, dry, no pallor noted. Erythematous right lower extremity. 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 Mild drainage seen. With no warmth on palpation. There is a area that is approximately less than 0.5 cm of appears to be clotted blood where the supposedly varicose vein was bleeding from. Dried blood noted around this area. No active bleeding. Head: Normocephalic, atraumatic Neck: No JVD Eye: PERRLA, EOMI ENT: Moist mucus membranes Cardiovascular: tachycardic , irregular rate. normal peripheral perfusion. Pedal pulses +2 bilaterally Respiratory: No respiratory distress. no accessory muscle use. no obvious audible wheezing Chest Wall: no deformity Musculoskeletal: normal ROM, no deformity GI: No obvious distention Neurological: A&O. moves all extremities equal strength and symmetry Psychiatric: Cooperative and appropriate Medical Decision Making A 64-year-old male reports to the emergency department with concerns of a bleeding varicose vein. Reports he is on blood thinners but is unsure which ones he is on. Exam here reveals a [address] of right lower extremity. No active bleeding. Once tourniquets were removed by nursing staff, no active bleeding remains. Dried blood noted around the area. Patient has good distal pulses. He does have what appears to be chronic wounds of his right and left foot, but patient is concerned like to be treated with antibiotics. I did prescribe doxycycline for cellulitis coverage. He does follow with wound care and discussed continue follow-up with wound care. I did perform a Dermabond repair on the scabbed varicose vein at this time to help with any further bleeding. A nonadherent dressing was then applied, with nursing staff placing a somewhat pressure dressing versus a pressure wrap on the right leg. Patient was comfortable with this. Patient's blood pressure did stay low throughout his encounter here and his heart rate did bounce from 100-130. Due to this, I did give him fluids, as well as did do a quick cardiac workup on the patient. Patient was found to be in A-fib with RVR. Patient denies any history of A-fib. Is a blood thinners at this time. Due to concerns, I did discuss case with the hospitalist who was agreeable with admission of the patient. Will start vancomycin in case of a cellulitis versus pneumonia which does not appear to be the case at this time. Believe likely more reactive leukocytosis with A-fib RVR. No cough or congestion. No clinical signs of pneumonia. Hospitalist was agreeable with admission of the patient. Sepsis Data [x] Patient's [place] body weight was considered in sepsis fluid administration calculations if BMI >30 [ ] 30mL/kg Sepsis Fluid Bolus was ordered [ ] 250mL IV Crystalloid Bolus was given due to () [ ] 500mL IV Crystalloid Bolus was given due to () [ ] 1000 mL IV Crystalloid Bolus was given due to () [x] Sepsis Re-Evaluation was performed at 1627(time after fluid resuscitation began) Assessment/Plan 1. Severe sepsis (R65.20: Severe sepsis without septic shock) 2. Cellulitis of leg (L03.119: Cellulitis of unspecified part of limb) 3. KRISTINE (acute kidney injury) (N17.9: Acute kidney failure, unspecified) 4. Atrial fibrillation with RVR (I48.91: Unspecified atrial fibrillation) 5. 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 (I83.891: Varicose veins of right lower extremity with other complications) 6. Hyponatremia (E87.1: Hypo-osmolality and hyponatremia) 7. Noncompliance with medications (Z91.148: Patient's other nonco (more content not included)... Normal [facility] Comment on above: Result Comment: Elec tronically Signed By: Puneet Jung PA-C.br\Date and Time Signed: 01/24/25 13:02 EDT\.br\Electronically Co-Signed By: Puneet Jung PA-C.br\Date and Time Co-Signed: 01/24/25 15:25 EDT\.br\Electronically Co-Signed By: Puneet Jung PA-C.br\Date and Time Co-Signed: 01/24/25 16:27 EDT\.br\Electronically Co-Signed By: Justine Otto, Manuel Mathis\.br\Date and Time Co-Signed: 01/24/25 18:08 EDT ED Patient Summaryon 025 ED Patient Summary ED Patient Summary [place] [address] Patient Discharge Instructions Person Information Name: TYLER MCKINNEY Age: 64 Years Arrival Date: 01/24/2025 11:29:33 Discharge Diagnosis: 1:Severe sepsis; 2:Cellulitis of leg; 3:KRISTINE (acute kidney injury); 4:Atrial fibrillation with RVR; 5: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; 6:Hyponatremia; 7:Noncompliance with medications Primary Care Physician: DARA EISENBERG CNP Provider Information Primary Provider: Manuel Fletcher M.D. [employer] Operator:Puneet Jung PA-C The exam and treatment you received in the Emergency Department were for an urgent problem and are not intended as complete care. It is important that you follow up with a doctor, nurse practitioner, or physician???s assignment desk assistant for ongoing care. If your symptoms become worse or you do not improve as expected and you are unable to reach your usual health care provider, you should return to the Emergency Department. We are available 24 hours a day. TYLER MCKINNEY has been given the following list of patient education materials, prescriptions and follow-up instructions: Follow-up Instructions: With: Address: When: DARA EISENBERG [address] [facility], [facility] [place] [phone] Business (1) In 3 days 01/27/2025 Comments: Call Dr for diagnosis based follow up In the event that this physician does not participate in your insurance network, please consult with your insurance company to find a nearby participating provider. Patient Education Materials: Cellulitis, Adult, Avlq-zh-Ujuo; Bleeding Varicose Veins A MESSAGE TO ALL PATIENTS REGARDING OPIOIDS PRESCRIPTION OPIOIDS: WHAT YOU NEED TO KNOW Prescription opioids can be used to help relieve zbvhtvtz-tj-eltrzn pain and are often prescribed following a surgery or injury, or for certain health conditions. These medications can be an important part of the treatment but also come with serious risks. It is important to work with your healthcare provider to make sure you are getting the safest, most effective care. WHAT ARE THE RISKS AND SIDE EFFECTS OF OPIOID USE? Prescription opioids carry serious risks of addiction and overdose, especially with prolonged use. An opioid overdose, often marked by slowed breathing, can cause sudden . The use of prescription opioids can have a number of side effects as well, even when taken as directed: ??? Tolerance???meaning you might need to take more of the medication for the same pain relief ??? Physical dependence???meaning you have symptoms of withdrawal when a medication is stopped ??? Increased sensitivity to pain ??? Constipation ??? Nausea, vomiting, and dry mouth ??? Sleepiness and dizziness ??? Confusion ??? Depression ??? Low levels of testosterone that can result in lower sex drive, energy, and strength ??? Itching and sweating RISKS ARE GREATER WITH: ??? History of drug misuse, substance use disorder, or overdose ??? Mental health conditions (such as depression or anxiety) ??? Sleep apnea ??? Older age (65 years and older) ??? Avoid alcohol while taking prescription opioids. Also, unless specifically advised by your health care provider, medications to avoid include: ??? Benzodiazepines (such as Xanax or Valium) ??? Muscle relaxants (such as Soma or Flexeril) ??? Hypnotics (such as Ambien or Lunesta) ??? Other prescription opioids KNOW YOUR OPTIONS Talk to your health care provider about ways to manage your pain that don???t involve prescription opioids. Some of these options may actually work better and have fewer risks and side effects. Options may include: ??? Pain relievers such as acetaminophen, ibuprofen, and naproxen ??? Some medication that are also used for depression or seizures ??? Physical therapy and exercise ??? Cognitive behavioral therapy, a psychological, goal-directed approach, in which patients learn how to modify physical, behavioral, and emotional triggers of pain and stress. IF YOU ARE PRESCRIBED OPIOIDS FOR PAIN: ??? Never take opioids in greater amounts or more often than prescribed. ??? Follow up with your primary health care provider. o Work together to create a plan on how to manage your pain. o Talk about ways to help manage your pain that don???t involve prescription opioids. o Talk about any and all concerns and side effects. ??? Help prevent misuse and abuse o Never sell or share prescription opioids. o Never use another person???s prescription opioids. ??? Store prescription opioids in a secure place and out of reach of others (this may include visitors, children, friends, and family). ??? Safely dispose of unused prescription opioids: Find your community drug take-back program or your pharmacy mail-back program, or flush them down the toilet, f (more content not included)... Normal [facility] Lactic Acidon 01-24-2025 Lactic Acid Lvl 1.0 mmol/L Normal 0.5-2.2 [facility] Comment on above: Performed By: #### 2 [id number] #### [facility] [address] [place] [address] PT & PTTon 01-24-2025 INR Coag (PPP) [Relative time] 1.03 {INR} Invalid Interpretation Code [facility] Comment on above: Result Comment: INR results are specifically intended to assess patients stabilized on long-term Anticoagulation therapy suggested INR???s ???Less Intensive Anticoagulation??? 2.0 ??? 3.0 Conventional Range 3.0 ??? 4.5 Performed By: #### 1 [id number] #### [facility] [address] [place] [address] PT 11.5 second(s) Normal 9.4-12.5 [facility] Comment on above: Result Comment: 15 d ays - 4 weeks 1 - 5 months 6 -11 months 1 ??? 5 years 6 ??? 10 years 11 -17 years Mean: 11.2 (9.5 ??? 12.6) Mean: 11.0 (9.7 ??? 12.8) Mean: 11.0 (9.8 ??? 13.0) Mean: 11.3 (9.9 ??? 13.4) Mean: 11.7 (10.0 ??? 14.6) Mean: 11.8 (10.0 - 14.1) Pediatric Reference ranges were obtained from a study by Shimon Borup, et al. prepared from 1437 samples obtained at 7 different centers using the same coagulation reagent and instrumentation as [facility]. Currently there are no coagulation studies available worldwide for children to 14 days, and no normal ranges. Performed By: #### 1 [id number] #### [facility] [address] [place] [address] PTT 27.7 second(s) Normal 25.1-36.5 [facility] Comment on above: Result Comment: Para meter 15 days - 4 weeks 1 - 5 months 6 - 11 months 1 - 5 years 6 - 10 years 11 - 17 years PTT Mean: 35.4 (27.6-45.6) Mean: 33.5 (24.8-40.7) Mean: 32.4 (25.1-40.7) Mean: 31.6 (24.0-39.2) Mean: 31.6 (26.9-38.7) Mean: 31.0 (24.6-38.4) Pediatric Reference ranges were obtained from a study by syd Ortiz. prepared from 1437 samples obtained at 7 different centers using the same coagulation reagent and instrumentation as [facility]. Currently there are no coagulation studies available worldwide for children to 14 days, and no normal ranges. Heparin therapeutic range (represented by Anti-Factor Xa activity of 0.2 - 0.4 U/mL) corresponds to PTT of 56.6 - 109.0 sec. Performed By: #### 1 [id number] #### [facility] [address] [place] [address] Pre-Arrival Noteon Pre-Arrival Note Pre-Arrival Note Pre-Arrival Summary Name: , Current Date: 01/24/2025 11:30:22 EDT Gender: Date of : Age: Pre-Arrival Type: EMS ETA: 01/24/2025 11:50:00 EDT Primary Care Physician: Presenting Problem: varicose vein tourniquet Pre-Arrival User: [address] Referring Source: Location: [place] Completion Date/Time: 01/24/2025 11:20:00 [facility] Emergency Department Pre-Hospital Report Form Vital Signs: Pre-Hospital Report: Treatment in Route: Response to Treatment: Misc. Issues: Normal [facility] Procalcitoninon 01-24-2025 Procalcitonin .09 ng/mL Normal .00-.[address] [facility] Comment on above: Result Comment: <0.5 ng/mL Low risk of severe sepsis and/or shock >2.0 ng/mL High risk of severe sepsis and/or shock Concentrations under 0.5 ng/mL do not exclude local infections or systemic infections in their initial stages (e.g.. under six hours from onset of illness). PCT concentrations between 0.5 and 2.0 ng/mL should be interpreted with consideration of the patient's history. In this range, it is recommended to retest PCT within 6 to 24 hours. Performed By: #### 2 [id number] #### [facility] [address] [place] [address] Troponin 0 Hr.on 01-24-2025 Troponin HS 4.60 pg/mL Low 15.90-38.40 [facility] Comment on above: Result Comment: The 95% CI (Confidence Interval) PPV (Positive Predictive Value) for myocardial infarction in females is 38 pg/mL, in males 51 pg/mL. The results should be used in conjunction with clinical conditions of myocardial infarction. (Access High Sensitivity Troponin I Instructions For Use, Charli Troutman, February 2018) Performed By: #### 1 [id number] #### [facility] [address] [place] [address] UA with Cult Rflxon 01-25-20 25 Color (U) Light-Yellow Normal Yellow [facility] Comment on above: Result Comment: Micr oscopic readings are only performed on those samples that meet specific criteria set forth by [facility]. Performed By: #### 4 [id number] #### [facility] [address] [id number] Ketones Ql (U) Negative Normal Negative [facility] Comment on above: Performed By: #### 4 [id number] #### [facility] [address] [place] [address] UA Blood 1+ mg/dL Abnormal Negative [facility] Comment on above: Performed By: #### 4 [id number] #### [facility] [address] [place] [address] UA Clarity Clear Normal Clear [facility] Comment on above: Performed By: #### 4 [id number] #### [facility] [address] [place] [address] UA Glucose 4+ mg/dL Abnormal Negative [facility] Comment on above: Performed By: #### 4 [id number] #### [facility] [address] [place] [address] UA Leuk Est Negative Normal Negative [facility] Comment on above: Performed By: #### 4 [id number] #### [facility] [address] [place] [address] UA Mucous Trace Normal Negative [facility] Comment on above: Performed By: #### 4 [id number] #### [facility] [address] [place] [address] UA Nitrite Negative Normal Negative [facility] Comment on above: Performed By: #### 4 [id number] #### [facility] [address] [place] [address] UA pH 5.0 Invalid Interpretation Code 5.0-9.0 [facility] Comment on above: Performed By: #### 4 [id number] #### [facility] [address] [place] [address] UA Protein Negative Normal Negative [facility] Comment on above: Performed By: #### 4 [id number] #### [facility] [address] [place] [address] UA RBC 4-20 Abnormal 0-3 [facility] Comment on above: Performed By: #### 4 [id number] #### [facility] [address] [place] [address] UA Spec Grav 1.020 Invalid Interpretation Code 1.005-1.030 [facility] Comment on above: Performed By: #### 4 [id number] #### [facility] [address] [place] [address] UA Urobilinogen Negative Normal Negative [facility] Comment on above: Performed By: #### 4 [id number] #### [facility] [address] [place] [address] UA WBC 0-5 Normal 0-5 [facility] Comment on above: Performed By: #### 4 [id number] #### [facility] [address] [place] [address] Urobilinogen (U) [Mass/Vol] Negative Normal Negative [facility] Comment on above: Performed By: #### 4 [id number] #### [facility] [address] [place] [address] UA Spec Desc Clean Catch Normal [facility] Comment on above: Performed By: #### 4 [id number] #### [facility] [address] [place] [address] XR Chest 2 Viewson XR Chest 2 Views Exam Date/Time: 01/24/2025 14:37 EDT Reason for Exam: Cough Report IMPRESSION: Opacity versus atelectasis/scarring at the lung bases. EXAMINATION: XR Chest 2 Views Clinical History: Cough. Comparison: None RESULT: Opacity versus atelectasis/scarring at the lung bases. No large pleural effusion. No pneumothorax. Borderline enlarged cardiomediastinal silhouette. No acute osseous findings. Degenerative changes. Ordering Provider: Puneet Jung FINAL REPORT Dictated: 01/24/2025 2:39 pm Krishna Ray MD Signed (Electronic Signature): 01/24/2025 2:39 pm Signed by: Krishna Ray MD Transcribed by: [employer]MU Technologist: DAUB COLOR MIXER Normal [facility] eGFRon 01-24-2025 eGFR 55 mL/min/1.73 m2 Low >=59 [facility] Comment on above: Performed By: #### 1 [id number] #### [facility] [address] [place] [address] HbA1c HPLC (Bld) [Mass fract ion]on 11-05-2024 HbA1c (Bld) [Mass fraction] 10.1 % [facility] CBC WITH AUTO DIFFERENTIALon 09-09-2024 Basophils (Bld) [#/Vol] 0.05 10*3/uL Normal 0.00-0.20 [facility] Comment on above: Performed By: #### L [id number] ####[facility] (BEAKER)[address] [place] [address] Basophils/100 WBC (Bld) 0.6 % Normal 0.0-1.0 [facility] Comment on above: Performed By: #### L [id number] ####[facility] (BEAKER)[address] [place] [address] Eosinophils (Bld) [#/Vol] 0.43 10*3/uL Normal 0.00-0.50 [facility] Comment on above: Performed By: #### L [id number] ####[facility] (BEAKER)[address] [place] [address] Eosinophils/100 WBC (Bld) 5.0 % Normal 0.0-6.0 [facility] Comment on above: Performed By: #### L [id number] ####[facility] (BEAKER)[address] [place] [address] Erythrocyte distribution width (RBC) [Ratio] 15.1 % High 11.5-15.0 [facility] Comment on above: Performed By: #### L [id number] ####[facility] (BEAKER)[address] [place] [address] ERYTHROCYTE MEAN CORPUSCULAR HEMOGLOBIN CONCENTRATION (G/DL) BY AUTOMATED 31.1 g/dL Low 32.0-35.0 [facility] Comment on above: Performed By: #### L [id number] ####[facility] (BEAKER)[address] [place] [address] Hematocrit (Bld) [Volume fraction] 48.8 % Normal 39.0-55.0 [facility] Comment on above: Performed By: #### L [id number] ####[facility] (BEAKER)[address] [place] [address] Hemoglobin (Bld) [Mass/Vol] 15.2 g/dL Normal 13.0-17.0 [facility] Comment on above: Performed By: #### L [id number] ####[facility] (BEAKER)[address] [place] [address] Immature granulocytes (Bld) [#/Vol] 0.05 10*3/uL Normal 0.00-0.20 [facility] Comment on above: Performed By: #### L [id number] ####[facility] (BEAKER)[address] [place] [address] Immature granulocytes/100 WBC (Bld) 0.6 % Normal 0.0-1.0 [facility] Comment on above: Performed By: #### L [id number] ####[facility] (BEAKER)[address] [place] [address] Lymphocytes (Bld) [#/Vol] 1.59 10*3/uL Normal 1.20-4.00 [facility] Comment on above: Performed By: #### L [id number] ####[facility] (BEAKER)[address] [place] [address] Lymphocytes/100 WBC (Bld) 18.5 % Low 20.0-45.0 [facility] Comment on above: Performed By: #### L [id number] ####[facility] (BEAKER)[address] [place] [address] MCH (RBC) [Entitic mass] 28.8 pg Normal 27.0-33.0 [facility] Comment on above: Performed By: #### L [id number] ####[facility] (BEAKER)[address] [place] [address] MCV (RBC) [Entitic vol] 92.6 fL Normal 82.0-98.0 [facility] Comment on above: Performed By: #### L [id number] ####[facility] [place] [address] Monocytes (Bld) [#/Vol] 0.90 10*3/uL Normal 0.10-1.00 [facility] Comment on above: Performed By: #### L [id number] ####[facility] ([facility])[address] [place] [address] Monocytes/100 WBC (Bld) 10.5 % Normal 5.0-12.0 [facility] Comment on above: Performed By: #### L [id number] ####[facility] ([facility])[address] [place] [address] Neutrophils (Bld) [#/Vol] 5.56 10*3/uL Normal 1.60-7.60 [facility] Comment on above: Performed By: #### L [id number] ####[facility] ([facility])[address] [place] [address] Neutrophils/100 WBC (Bld) 64.8 % Normal 40.0-72.0 [facility] Comment on above: Performed By: #### L [id number] ####[facility] ([facility] [place] [address] NRBC (PER 100 WBCS) BY AUTOMATED COUNT 0.0 % Normal 0 [facility] Comment on above: Performed By: #### L [id number] ####[facility] ([facility] [place] [address] PLATELETS (10*3/UL) IN BLOOD AUTOMATED COUNT 208 10*3/uL Normal 150-400 [facility] Comment on above: Performed By: #### L [id number] ####[facility] ([facility] [place] [address] RBC (Bld) [#/Vol] 5.27 10*6/uL Normal 4.20-5.70 [facility] Comment on above: Performed By: #### L [id number] ####[facility] ([facility] [place] [address] WBC (Bld) [#/Vol] 8.58 10*3/uL Normal 4.00-10.60 [facility] Comment on above: Performed By: #### L [id number] ####[facility] ([facility])[address] [place] [address] DSon 09-09-2024 DS [facility] MAGNESIUMon 09-09-2024 Magnesium [Mass/Vol] 1.7 mg/dL Low 1.9-2.7 [facility] Comment on above: Performed By: #### L [id number] ####[facility] ([facility])[address] [place] [address] PHOSPHORUSon 09-09-2024 Magnesium [Mass/Vol] 3.2 mg/dL Normal 2.5-5.0 [facility] Comment on above: Performed By: #### L [id number] ####[facility] ([facility])[address] [place] [address] POCT GLUCOSE METER UNSOLICIT ED RESULTSon 09-09-2024 Glucose [Mass/Vol] 114 mg/dL High 70-105 [facility] Comment on above: Order Comment: Waive d Testing in the ED is performed under the ED CLIA certificate #[id number]. Result Comment: ndub [email or web address] Performed By: #### L [id number] ####[facility] ([facility])[address] [place] [address] 30on 09-08-2024 30 [facility] 30 [facility] CBC WITH AUTO DIFFERENTIALon 09-08-2024 Basophils (Bld) [#/Vol] 0.06 10*3/uL Normal 0.00-0.20 [facility] Comment on above: Performed By: #### L [id number] ####[facility] ([facility] [facility] [place] [address] Basophils/100 WBC (Bld) 0.8 % Normal 0.0-1.0 [facility] Comment on above: Performed By: #### L [id number] ####[facility] (BEAKER)[address] [place] [address] Eosinophils (Bld) [#/Vol] 0.43 10*3/uL Normal 0.00-0.50 [facility] Comment on above: Performed By: #### L [id number] ####[facility] ([facility] [place] [address] Eosinophils/100 WBC (Bld) 5.5 % Normal 0.0-6.0 [facility] Comment on above: Performed By: #### L [id number] ####[facility] ([facility] [place] [address] Erythrocyte distribution width (RBC) [Ratio] 15.2 % High 11.5-15.0 [facility] Comment on above: Performed By: #### L [id number] ####[facility] ([facility] [place] [address] ERYTHROCYTE MEAN CORPUSCULAR HEMOGLOBIN CONCENTRATION (G/DL) BY AUTOMATED 30.8 g/dL Low 32.0-35.0 [facility] Comment on above: Performed By: #### L [id number] ####[facility] (BEAKER)[address] [place] [address] Hematocrit (Bld) [Volume fraction] 45.4 % Normal 39.0-55.0 [facility] Comment on above: Performed By: #### L [id number] ####[facility] (BEAKER)[address] [place] [address] Hemoglobin (Bld) [Mass/Vol] 14.0 g/dL Normal 13.0-17.0 [facility] Comment on above: Performed By: #### L [id number] ####[facility] (BEAKER)[address] [place] [address] Immature granulocytes (Bld) [#/Vol] 0.03 10*3/uL Normal 0.00-0.20 [facility] Comment on above: Performed By: #### L [id number] ####[facility] ([facility])[address] [place] [address] Immature granulocytes/100 WBC (Bld) 0.4 % Normal 0.0-1.0 [facility] Comment on above: Performed By: #### L [id number] ####[facility] ([facility])[address] [place] [address] Lymphocytes (Bld) [#/Vol] 1.82 10*3/uL Normal 1.20-4.00 [facility] Comment on above: Performed By: #### L [id number] ####[facility] ([facility])[address] [place] [address] Lymphocytes/100 WBC (Bld) 23.2 % Normal 20.0-45.0 [facility] Comment on above: Performed By: #### L [id number] ####[facility] ([facility])[address] [place] [address] MCH (RBC) [Entitic mass] 29.1 pg Normal 27.0-33.0 [facility] Comment on above: Performed By: #### L [id number] ####[facility] ([facility])[address] [place] [address] MCV (RBC) [Entitic vol] 94.4 fL Normal 82.0-98.0 [facility] Comment on above: Performed By: #### L [id number] ####[facility] ([facility] [place] [address] Monocytes (Bld) [#/Vol] 0.88 10*3/uL Normal 0.10-1.00 [facility] Comment on above: Performed By: #### L [id number] ####[facility] ([facility] [place] [address] Monocytes/100 WBC (Bld) 11.2 % Normal 5.0-12.0 [facility] Comment on above: Performed By: #### L [id number] ####[facility] (BEAKER)[address] [place] [address] Neutrophils (Bld) [#/Vol] 4.62 10*3/uL Normal 1.60-7.60 [facility] Comment on above: Performed By: #### L [id number] ####[facility] (BEAKER)[address] [place] [address] Neutrophils/100 WBC (Bld) 58.9 % Normal 40.0-72.0 [facility] Comment on above: Performed By: #### L [id number] ####[facility] ([facility])[address] [place] [address] NRBC (PER 100 WBCS) BY AUTOMATED COUNT 0.0 % Normal 0 [facility] Comment on above: Performed By: #### L [id number] ####[facility] ([facility])[address] [place] [address] PLATELETS (10*3/UL) IN BLOOD AUTOMATED COUNT 231 10*3/uL Normal 150-400 [facility] Comment on above: Performed By: #### L [id number] ####[facility] ([facility])[address] [place] [address] RBC (Bld) [#/Vol] 4.81 10*6/uL Normal 4.20-5.70 [facility] Comment on above: Performed By: #### L [id number] ####[facility] (BEAKER)[address] [place] [address] WBC (Bld) [#/Vol] 7.84 10*3/uL Normal 4.00-10.60 [facility] Comment on above: Performed By: #### L [id number] ####[facility] (BEAKER)[address] [place] [address] MAGNESIUMon 09-08-2024 Magnesium [Mass/Vol] 1.6 mg/dL Low 1.9-2.7 [facility] Comment on above: Performed By: #### L [id number] ####[facility] ([facility])[address] [place] [address] NURSNOTEon 09-08-2024 NURSNOTE Normal [facility] PHOSPHORUSon 09-08-2024 Magnesium [Mass/Vol] 3.4 mg/dL Normal 2.5-5.0 [facility] Comment on above: Performed By: #### L [id number] ####[facility] ([facility])[address] [place] [address] POCT GLUCOSE METER UNSOLICIT ED RESULTSon 09-08-2024 Glucose [Mass/Vol] 244 mg/dL High 70-105 [facility] Comment on above: Order Comment: Waive d Testing in the ED is performed under the ED CLIA certificate #[id number]. Result Comment: droc kol Performed By: #### L [id number] ####[facility] ([facility])[address] [place] [address] Glucose [Mass/Vol] 165 mg/dL High 70-105 [facility] Comment on above: Order Comment: Waive d Testing in the ED is performed under the ED CLIA certificate #[id number]. Result Comment: ndub [email or web address] Performed By: #### L [id number] ####[facility] ([facility])[address] [place] [address] Glucose [Mass/Vol] 110 mg/dL High 70-105 [facility] Comment on above: Order Comment: Waive d Testing in the ED is performed under the ED CLIA certificate #[id number]. Result Comment: ndub [email or web address] Performed By: #### L [id number] ####[facility] ([facility])[address] [place] [address] Glucose [Mass/Vol] 157 mg/dL High 70-105 [facility] Comment on above: Order Comment: Waive d Testing in the ED is performed under the ED CLIA certificate #[id number]. Result Comment: [email or web address] [email or web address] Performed By: #### L [id number] ####[facility] ([place])[address] [place] [address] 30on 09-07-2024 30 Normal [facility] 30 Normal [facility] BASIC METABOLIC PANELon 08-21 Anion gap [Moles/Vol] 9 mmol/L Normal 7-20 [facility] Comment on above: Performed By: #### L [id number] ####[facility] ([facility] [place] [address] Calcium [Mass/Vol] 9.6 mg/dL Normal 8.6-10.3 [facility] Comment on above: Performed By: #### L [id number] ####[facility] ([facility] [place] [address] Chloride [Moles/Vol] 100 mmol/L Normal 98-107 [facility] Comment on above: Performed By: #### L [id number] ####[facility] ([facility] [place] [address] CO2 [Moles/Vol] 32 mmol/L High 21-31 [facility] Comment on above: Performed By: #### L [id number] ####[facility] ([facility] [place] [address] Creatinine [Mass/Vol] 0.78 mg/dL Normal 0.70-1.30 [facility] Comment on above: Performed By: #### L [id number] ####[facility] ([facility] [place] [address] GLOMERULAR FILTRATION RATE ML/MIN/1.73 SQ M.PREDICTED 99.0 mL/min/1.73m*2 Normal >60.0 [facility] Comment on above: Result Comment: The [facility]???s estimated glomerular filtration rate (eGFR) will no longer include consideration of race in its calculation. The National Kidney Foundation???s eGFR Task Force developed new recommendations for the estimation of the glomerular filtration rate in the [place] They recommend immediate implementation of the new equation refit without the race variable in all laboratories because the calculation does not include race. In addition to not including race in the calculation and reporting, it included diversity in its development, and has acceptable performance characteristics and potential consequences that do not disproportionately affect any one group of individuals. Performed By: #### L [id number] ####[facility] ([facility])[address] [place] [address] Glucose [Mass/Vol] 153 mg/dL High 70-100 [facility] Comment on above: Performed By: #### L [id number] ####[facility] ([facility])[address] [place] [address] Potassium [Moles/Vol] 4.1 mmol/L Normal 3.5-5.1 [facility] Comment on above: Performed By: #### L [id number] ####[facility] ([facility])[address] [place] [address] Sodium [Moles/Vol] 137 mmol/L Normal 136-145 [facility] Comment on above: Performed By: #### L [id number] ####[facility] ([facility])[address] [place] [address] Urea nitrogen [Mass/Vol] 19 mg/dL Normal 7-25 [facility] Comment on above: Performed By: #### L [id number] ####[facility] ([facility])[address] [place] [address] UREA NITROGEN/CREATININE (MASS RATIO) IN SER/PLAS 24.4 Normal [facility] Comment on above: Performed By: #### L [id number] ####[facility] ([facility])[address] [place] [address] CBC WITH AUTO DIFFERENTIALon 09-07-2024 Basophils (Bld) [#/Vol] 0.06 10*3/uL Normal 0.00-0.20 [facility] Comment on above: Performed By: #### L [id number] ####[facility] ([facility])[address] [place] [address] Basophils/100 WBC (Bld) 0.8 % Normal 0.0-1.0 [facility] Comment on above: Performed By: #### L [id number] ####[facility] (BEAKER)[address] [place] [address] Eosinophils (Bld) [#/Vol] 0.49 10*3/uL Normal 0.00-0.50 [facility] Comment on above: Performed By: #### L [id number] ####[facility] (BEAKER)[address] [place] [address] Eosinophils/100 WBC (Bld) 6.8 % High 0.0-6.0 [facility] Comment on above: Performed By: #### L [id number] ####[facility] [place] [address] Erythrocyte distribution width (RBC) [Ratio] 15.3 % High 11.5-15.0 [facility] Comment on above: Performed By: #### L [id number] ####[facility] ([facility])[address] [place] [address] ERYTHROCYTE MEAN CORPUSCULAR HEMOGLOBIN CONCENTRATION (G/DL) BY AUTOMATED 30.9 g/dL Low 32.0-35.0 [facility] Comment on above: Performed By: #### L [id number] ####[facility] ([facility])[address] [place] [address] Hematocrit (Bld) [Volume fraction] 45.9 % Normal 39.0-55.0 [facility] Comment on above: Performed By: #### L [id number] ####[facility] (BEAKER)[address] [place] [address] Hemoglobin (Bld) [Mass/Vol] 14.2 g/dL Normal 13.0-17.0 [facility] Comment on above: Performed By: #### L [id number] ####[facility] (BEAKER)[address] [place] [address] Immature granulocytes (Bld) [#/Vol] 0.04 10*3/uL Normal 0.00-0.20 [facility] Comment on above: Performed By: #### L [id number] ####[facility] (BEAKER)[address] [place] [address] Immature granulocytes/100 WBC (Bld) 0.6 % Normal 0.0-1.0 [facility] Comment on above: Performed By: #### L [id number] ####[facility] (BEAKER)[address] [place] [address] Lymphocytes (Bld) [#/Vol] 1.82 10*3/uL Normal 1.20-4.00 [facility] Comment on above: Performed By: #### L [id number] ####[facility] (BEAKER)[address] [place] [address] Lymphocytes/100 WBC (Bld) 25.3 % Normal 20.0-45.0 [facility] Comment on above: Performed By: #### L [id number] ####[facility] (BEAKER)[address] [place] [address] MCH (RBC) [Entitic mass] 29.2 pg Normal 27.0-33.0 [facility] Comment on above: Performed By: #### L [id number] ####[facility] (BEAKER)[address] [place] [address] MCV (RBC) [Entitic vol] 94.4 fL Normal 82.0-98.0 [facility] Comment on above: Performed By: #### L [id number] ####[facility] (BEAKER)[address] [place] [address] Monocytes (Bld) [#/Vol] 0.74 10*3/uL Normal 0.10-1.00 [facility] Comment on above: Performed By: #### L [id number] ####[facility] (BEAKER)[address] [place] [address] Monocytes/100 WBC (Bld) 10.3 % Normal 5.0-12.0 [facility] Comment on above: Performed By: #### L [id number] ####[facility] (BEAKER)[address] [place] [address] Neutrophils (Bld) [#/Vol] 4.04 10*3/uL Normal 1.60-7.60 [facility] Comment on above: Performed By: #### L [id number] ####[facility] [place] [address] Neutrophils/100 WBC (Bld) 56.2 % Normal 40.0-72.0 [facility] Comment on above: Performed By: #### L [id number] ####[facility] ([facility])[address] [address] NRBC (PER 100 WBCS) BY AUTOMATED COUNT 0.0 % Normal 0 [facility] Comment on above: Performed By: #### L [id number] ####[facility] ([facility])[address] [address] PLATELETS (10*3/UL) IN BLOOD AUTOMATED COUNT 234 10*3/uL Normal 150-400 [facility] Comment on above: Performed By: #### L [id number] ####[facility] ([facility])[address] [address] RBC (Bld) [#/Vol] 4.86 10*6/uL Normal 4.20-5.70 [facility] Comment on above: Performed By: #### L [id number] ####[facility] ([facility])[address] [address] WBC (Bld) [#/Vol] 7.19 10*3/uL Normal 4.00-10.60 [facility] Comment on above: Performed By: #### L [id number] ####[facility] [address] MAGNESIUMon 09-07-2024 Magnesium [Mass/Vol] 1.7 mg/dL Low 1.9-2.7 [facility] Comment on above: Performed By: #### L [id number] ####[facility] [place] [address] NURSNOTEon 09-07-2024 NURSNOTE Signed off to Ian engel RN [facility] NURSNOTE HOB up @ 40 degrees, NO c/o of pain, or SOB at this time Urinal at bedside Call light within reach IV INT'd, intact, no redness noted Pulse ox--97% O 2 cont. On pt. Per nasal cannula @ 4 L/min NC Telemetry cont. On pt [facility] NURSNOTE [facility] NURSNOTE Tried to call Elias, pt's brother, no answer, still, at this time, 3rd attempt [facility] NURSNOTE [facility] NURSNOTE Pt's family brought him a hamburger last night, and the pt. Is eating it now. Pt. Encouraged not to eat, since the hamburger has been sitting out all night. Pt. Cont. To eat burger. [facility] NURSNOTE Eyes closed resp. Easy @ 18/min Pulse ox--98% Telemetry cont. On pt [facility] Orders Onlyon 09-07-2024 Orders Only [id number] Tyler Mckinney 1960 M Date Provider Department Center 09/07/[id number], JENN*[facility] [place] [facility] No family history on file [facility] PHOSPHORUSon 09-07-2024 Magnesium [Mass/Vol] 3.5 mg/dL Normal 2.5-5.[address] [facility] Comment on above: Performed By: #### L [id number] ####[facility] (BEAKER)[address] [place] [address] POCT GLUCOSE METER UNSOLICIT ED RESULTSon 09-07-2024 Glucose [Mass/Vol] 200 mg/dL High 70-105 [facility] Comment on above: Order Comment: Waive d Testing in the ED is performed under the ED CLIA certificate #[id number]. Result Comment: [email or web address] kol Performed By: #### L [id number] ####[facility] (BEAKER)[address] [place] [address] Glucose [Mass/Vol] 211 mg/dL High 70-105 [facility] Comment on above: Order Comment: Waive d Testing in the ED is performed under the ED CLIA certificate #[id number]. Result Comment: [email or web address] [email or web address] Performed By: #### L [id number] ####[facility] ([facility]ER)[address] [place] [address] Glucose [Mass/Vol] 298 mg/dL High 70-105 [facility] Comment on above: Order Comment: Waive d Testing in the ED is performed under the ED CLIA certificate #[id number]. Result Comment: [email or web address] [email or web address] Performed By: #### L [id number] ####[facility] ([facility])[address] [place] [address] Glucose [Mass/Vol] 155 mg/dL High 70-105 [facility] Comment on above: Order Comment: Waive d Testing in the ED is performed under the ED CLIA certificate #[id number]. Result Comment: [email or web address] [email or web address] Performed By: #### L [id number] ####[facility] ([facility])[address] [place] [address] 30on 09-06-2024 30 Normal [facility] 30 Normal [facility] BASIC METABOLIC PANELon 08-21 Anion gap [Moles/Vol] 11 mmol/L Normal 7-20 [facility] Comment on above: Performed By: #### L [id number] ####[facility] [place] [address] Calcium [Mass/Vol] 9.8 mg/dL Normal 8.6-10.3 [facility] Comment on above: Performed By: #### L [id number] ####[facility] (BEAKER)[address] [place] [address] Chloride [Moles/Vol] 98 mmol/L Normal 98-107 [facility] Comment on above: Performed By: #### L [id number] ####[facility] ([facility]AKER)[address] [place] [address] CO2 [Moles/Vol] 31 mmol/L Normal 21-31 [facility] Comment on above: Performed By: #### L [id number] ####[facility] ([facility])[address] [place] [address] Creatinine [Mass/Vol] 0.90 mg/dL Normal 0.70-1.30 [facility] Comment on above: Performed By: #### L [id number] ####[facility] ([facility])[address] [place] [address] GLOMERULAR FILTRATION RATE ML/MIN/1.73 SQ M.PREDICTED 94.8 mL/min/1.73m*2 Normal >60.0 [facility] Comment on above: Result Comment: The [facility]???s estimated glomerular filtration rate (eGFR) will no longer include consideration of race in its calculation. The National Kidney Foundation???s eGFR Task Force developed new recommendations for the estimation of the glomerular filtration rate in the [place] They recommend immediate implementation of the new equation refit without the race variable in all laboratories because the calculation does not include race. In addition to not including race in the calculation and reporting, it included diversity in its development, and has acceptable performance characteristics and potential consequences that do not disproportionately affect any one group of individuals. Performed By: #### L [id number] ####[facility] ([facility])[address] [place] [address] Glucose [Mass/Vol] 244 mg/dL High 70-100 [facility] Comment on above: Performed By: #### L [id number] ####[facility] ([facility])[address] [place] [address] Potassium [Moles/Vol] 3.9 mmol/L Normal 3.5-5.1 [facility] Comment on above: Performed By: #### L [id number] ####[facility] ([facility])[address] [place] [address] Sodium [Moles/Vol] 136 mmol/L Normal 136-145 [facility] Comment on above: Performed By: #### L [id number] ####[facility] (BEAKER)[address] [address] Urea nitrogen [Mass/Vol] 18 mg/dL Normal 7-25 [facility] Comment on above: Performed By: #### L [id number] ####[facility] (BEAKER)[address] [place] [address] UREA NITROGEN/CREATININE (MASS RATIO) IN SER/PLAS 20.0 Normal [facility] Comment on above: Performed By: #### L [id number] ####[facility] ([facility])[address] [place] [address] CBC WITH AUTO DIFFERENTIALon 09-06-2024 Basophils (Bld) [#/Vol] 0.07 10*3/uL Normal 0.00-0.20 [facility] Comment on above: Performed By: #### L [id number] ####[facility] ([facility])[address] [place], [place] [address] Basophils/100 WBC (Bld) 1.0 % Normal 0.0-1.0 [facility] Comment on above: Performed By: #### L [id number] ####[facility] ([facility])[address] [place] [address] Eosinophils (Bld) [#/Vol] 0.40 10*3/uL Normal 0.00-0.50 [facility] Comment on above: Performed By: #### L [id number] ####[facility] ([facility] [place] [address] Eosinophils/100 WBC (Bld) 5.9 % Normal 0.0-6.0 [facility] Comment on above: Performed By: #### L [id number] ####[facility] ([facility] [place] [address] Erythrocyte distribution width (RBC) [Ratio] 15.2 % High 11.5-15.0 [facility] Comment on above: Performed By: #### L [id number] ####[facility] (BEAKER)[address] [place] [address] ERYTHROCYTE MEAN CORPUSCULAR HEMOGLOBIN CONCENTRATION (G/DL) BY AUTOMATED 30.7 g/dL Low 32.0-35.0 [facility] Comment on above: Performed By: #### L [id number] ####[facility] (BEAKER)[address] [place] [address] Hematocrit (Bld) [Volume fraction] 47.3 % Normal 39.0-55.0 [facility] Comment on above: Performed By: #### L [id number] ####[facility] (BEAKER)[address] [place] [address] Hemoglobin (Bld) [Mass/Vol] 14.5 g/dL Normal 13.0-17.0 [facility] Comment on above: Performed By: #### L [id number] ####[facility] (BEAKER)[address] [place] [address] Immature granulocytes (Bld) [#/Vol] 0.05 10*3/uL Normal 0.00-0.20 [facility] Comment on above: Performed By: #### L [id number] ####[facility] (BEAKER)[address] [place] [address] Immature granulocytes/100 WBC (Bld) 0.7 % Normal 0.0-1.0 [facility] Comment on above: Performed By: #### L [id number] ####[facility] (BEAKER)[address] [place] [address] Lymphocytes (Bld) [#/Vol] 1.52 10*3/uL Normal 1.20-4.00 [facility] Comment on above: Performed By: #### L [id number] ####[facility] (BEAKER)[address] [place] [address] Lymphocytes/100 WBC (Bld) 22.5 % Normal 20.0-45.0 [facility] Comment on above: Performed By: #### L [id number] ####[facility] (BEAKER)[address] [place] [address] MCH (RBC) [Entitic mass] 29.1 pg Normal 27.0-33.0 [facility] Comment on above: Performed By: #### L [id number] ####[facility] [place] [address] MCV (RBC) [Entitic vol] 95.0 fL Normal 82.0-98.0 [facility] Comment on above: Performed By: #### L [id number] ####[facility] [place] [address] Monocytes (Bld) [#/Vol] 0.74 10*3/uL Normal 0.10-1.00 [facility] Comment on above: Performed By: #### L [id number] ####[facility] (BEAKER)[address] [place] [address] Monocytes/100 WBC (Bld) 10.9 % Normal 5.0-12.0 [facility] Comment on above: Performed By: #### L [id number] ####[facility] [place] [address] Neutrophils (Bld) [#/Vol] 3.98 10*3/uL Normal 1.60-7.60 [facility] Comment on above: Performed By: #### L [id number] ####[facility] (BEAKER)[address] [place] [address] Neutrophils/100 WBC (Bld) 59.0 % Normal 40.0-72.0 [facility] Comment on above: Performed By: #### L [id number] ####[facility] (BEAKER)[address] [place] [address] NRBC (PER 100 WBCS) BY AUTOMATED COUNT 0.0 % Normal 0 [facility] Comment on above: Performed By: #### L [id number] ####[facility] (BEAKER)[address] [place] [address] PLATELETS (10*3/UL) IN BLOOD AUTOMATED COUNT 251 10*3/uL Normal 150-400 [facility] Comment on above: Performed By: #### L [id number] ####[facility] ([facility])[address] [place] [address] RBC (Bld) [#/Vol] 4.98 10*6/uL Normal 4.20-5.70 [facility] Comment on above: Performed By: #### L [id number] ####[facility] ([facility])[address] [place] [address] WBC (Bld) [#/Vol] 6.76 10*3/uL Normal 4.00-10.60 [facility] Comment on above: Performed By: #### L [id number] ####[facility] ([facility])[address] [place] [address] MAGNESIUMon 09-06-2024 Magnesium [Mass/Vol] 1.6 mg/dL Low 1.9-2.7 [facility] Comment on above: Performed By: #### L [id number] ####[facility] ([facility])[address] [place] [address] NURSNOTEon 09-06-2024 NURSNOTE Signed off to Ian engel RN--with bedside rounding Pt. Cont. To sit up in a chair at bedside Call light within reach [facility] NURSNOTE [facility] NURSNOTE Pt refused to go yeni k to bed at this time Pt. Cont. To sit up in a chair at bedside No c/o of SOB or nausea at this time Resp. Easy @ 18/min [facility] PHOSPHORUSon 09-06-2024 Magnesium [Mass/Vol] 3.4 mg/dL Normal 2.5-5.0 [facility] Comment on above: Performed By: #### L [id number] ####[facility] ([facility])[address] [place] [address] POCT GLUCOSE METER UNSOLICIT ED RESULTSon 09-06-2024 Glucose [Mass/Vol] 255 mg/dL High 70-105 [facility] Comment on above: Order Comment: Waive d Testing in the ED is performed under the ED CLIA certificate #[id number]. Result Comment: [email or web address] Performed By: #### L [id number] ####[facility] (BEAKER)[address] [place] [address] Glucose [Mass/Vol] 208 mg/dL High 70-105 [facility] Comment on above: Order Comment: Waive d Testing in the ED is performed under the ED CLIA certificate #[id number]. Result Comment: [email or web address] Performed By: #### L [id number] ####[facility] (BEAKER)[address] [place] [address] Glucose [Mass/Vol] 173 mg/dL High 70-105 [facility] Comment on above: Order Comment: Waive d Testing in the ED is performed under the ED CLIA certificate #[id number]. Result Comment: [email or web address] Performed By: #### L [id number] ####[facility] ([facility])[address] [place] [address] Glucose [Mass/Vol] 210 mg/dL High 70-105 [facility] Comment on above: Order Comment: Waive d Testing in the ED is performed under the ED CLIA certificate #[id number]. Result Comment: [email or web address] Performed By: #### L [id number] ####[facility] (BEAKER)[address] [place] [address] BASIC METABOLIC PANELon 08-21 Anion gap [Moles/Vol] 8 mmol/L Normal 7-20 [facility] Comment on above: Performed By: #### L [id number] ####[facility] (BEAKER)[address] [place] [address] Calcium [Mass/Vol] 9.9 mg/dL Normal 8.6-10.3 [facility] Comment on above: Performed By: #### L [id number] ####[facility] (BEAKER)[address] [place] [address] Chloride [Moles/Vol] 98 mmol/L Normal 98-107 [facility] Comment on above: Performed By: #### L [id number] ####[facility] ([facility])[address] [place] [address] CO2 [Moles/Vol] 33 mmol/L High 21-31 [facility] Comment on above: Performed By: #### L [id number] ####[facility] ([facility])[address] [place] [address] Creatinine [Mass/Vol] 0.90 mg/dL Normal 0.70-1.30 [facility] Comment on above: Performed By: #### L [id number] ####[facility] ([facility])[address] [place] [address] GLOMERULAR FILTRATION RATE ML/MIN/1.73 SQ M.PREDICTED 94.8 mL/min/1.73m*2 Normal >60.0 [facility] Comment on above: Result Comment: [facility]???s estimated glomerular filtration rate (eGFR) will no longer include consideration of race in its calculation. The National Kidney Foundation???s eGFR Task Force developed new recommendations for the estimation of the glomerular filtration rate in the [place] They recommend immediate implementation of the new equation refit without the race variable in all laboratories because the calculation does not include race. In addition to not including race in the calculation and reporting, it included diversity in its development, and has acceptable performance characteristics and potential consequences that do not disproportionately affect any one group of individuals. Performed By: #### L [id number] ####[facility] [place] [address] Glucose [Mass/Vol] 142 mg/dL High 70-100 [facility] Comment on above: Performed By: #### L [id number] ####[facility] [place] [address] Potassium [Moles/Vol] 4.1 mmol/L Normal 3.5-5.1 [facility] Comment on above: Performed By: #### L [id number] ####[facility] ([facility])[address] [place] [address] Sodium [Moles/Vol] 135 mmol/L Low 136-145 [facility] Comment on above: Performed By: #### L [id number] ####[facility] ([facility])[address] [place] [address] Urea nitrogen [Mass/Vol] 19 mg/dL Normal 7-25 [facility] Comment on above: Performed By: #### L [id number] ####[facility] ([facility])[address] [place] [address] UREA NITROGEN/CREATININE (MASS RATIO) IN SER/PLAS 21.1 Normal [facility] Comment on above: Performed By: #### L [id number] ####[facility] ([facility])[address] [place] [address] CBC WITH AUTO DIFFERENTIALon 09-05-2024 Basophils (Bld) [#/Vol] 0.07 10*3/uL Normal 0.00-0.20 [facility] Comment on above: Performed By: #### L [id number] ####[facility] ([facility])[address] [place] [address] Basophils/100 WBC (Bld) 0.9 % Normal 0.0-1.0 [facility] Comment on above: Performed By: #### L [id number] ####[facility] ([facility])[address] [place] [address] Eosinophils (Bld) [#/Vol] 0.38 10*3/uL Normal 0.00-0.50 [facility] Comment on above: Performed By: #### L [id number] ####[facility] ([facility])[address] [address] Eosinophils/100 WBC (Bld) 5.0 % Normal 0.0-6.0 [facility] Comment on above: Performed By: #### L [id number] ####[facility] ([facility])[address] [place] [address] Erythrocyte distribution width (RBC) [Ratio] 15.2 % High 11.5-15.0 [facility] Comment on above: Performed By: #### L [id number] ####[facility] [place] [address] ERYTHROCYTE MEAN CORPUSCULAR HEMOGLOBIN CONCENTRATION (G/DL) BY AUTOMATED 31.4 g/dL Low 32.0-35.0 [facility] Comment on above: Performed By: #### L [id number] ####[facility] (BEAKER)[address] [place] [address] Hematocrit (Bld) [Volume fraction] 47.1 % Normal 39.0-55.0 [facility] Comment on above: Performed By: #### L [id number] ####[facility] [place] [address] Hemoglobin (Bld) [Mass/Vol] 14.8 g/dL Normal 13.0-17.0 [facility] Comment on above: Performed By: #### L [id number] ####[facility] (BEAKER)[address] [place] [address] Immature granulocytes (Bld) [#/Vol] 0.06 10*3/uL Normal 0.00-0.20 [facility] Comment on above: Performed By: #### L [id number] ####[facility] (BEAKER)[address] [place] [address] Immature granulocytes/100 WBC (Bld) 0.8 % Normal 0.0-1.0 [facility] Comment on above: Performed By: #### L [id number] ####[facility] (BEAKER)[address] [place] [address] Lymphocytes (Bld) [#/Vol] 1.99 10*3/uL Normal 1.20-4.00 [facility] Comment on above: Performed By: #### L [id number] ####[facility] (BEAKER)[address] [place] [address] Lymphocytes/100 WBC (Bld) 26.0 % Normal 20.0-45.0 [facility] Comment on above: Performed By: #### L [id number] ####[facility] (BEAKER)[address] [place] [address] MCH (RBC) [Entitic mass] 28.8 pg Normal 27.0-33.0 [facility] Comment on above: Performed By: #### L [id number] ####[facility] (BEAKER)[address] [place] [address] MCV (RBC) [Entitic vol] 91.6 fL Normal 82.0-98.0 [facility] Comment on above: Performed By: #### L [id number] ####[facility] (BEAKER)[address] [place] [address] Monocytes (Bld) [#/Vol] 0.77 10*3/uL Normal 0.10-1.00 [facility] Comment on above: Performed By: #### L [id number] ####[facility] (BEAKER)[address] [place] [address] Monocytes/100 WBC (Bld) 10.1 % Normal 5.0-12.0 [facility] Comment on above: Performed By: #### L [id number] ####[facility] (BEAKER)[address] [place] [address] Neutrophils (Bld) [#/Vol] 4.39 10*3/uL Normal 1.60-7.60 [facility] Comment on above: Performed By: #### L [id number] ####[facility] (BEAKER)[address] [place] [address] Neutrophils/100 WBC (Bld) 57.2 % Normal 40.0-72.0 [facility] Comment on above: Performed By: #### L [id number] ####[facility] (BEAKER)[address] [place] [address] NRBC (PER 100 WBCS) BY AUTOMATED COUNT 0.0 % Normal 0 [facility] Comment on above: Performed By: #### L [id number] ####[facility] (BEAKER)[address] [place] [address] PLATELETS (10*3/UL) IN BLOOD AUTOMATED COUNT 274 10*3/uL Normal 150-400 [facility] Comment on above: Performed By: #### L [id number] ####[facility] ([facility])[address] [place] [address] RBC (Bld) [#/Vol] 5.14 10*6/uL Normal 4.20-5.70 [facility] Comment on above: Performed By: #### L [id number] ####[facility] ([facility])[address] [place] [address] WBC (Bld) [#/Vol] 7.66 10*3/uL Normal 4.00-10.60 [facility] Comment on above: Performed By: #### L [id number] ####[facility] ([facility])[address] [place] [address] MAGNESIUMon 09-05-2024 Magnesium [Mass/Vol] 1.6 mg/dL Low 1.9-2.7 [facility] Comment on above: Performed By: #### L [id number] ####[facility] ([facility] [facility] [place] [address] PHOSPHORUSon 09-05-2024 Magnesium [Mass/Vol] 2.8 mg/dL Normal 2.5-5.0 [facility] Comment on above: Performed By: #### L [id number] ####[facility] ([facility])[address] [place] [address] POCT GLUCOSE METER UNSOLICIT ED RESULTSon 09-05-2024 Glucose [Mass/Vol] 221 mg/dL High 70-105 [facility] Comment on above: Order Comment: Waive d Testing in the ED is performed under the ED CLIA certificate #[id number]. Result Comment: [email or web address] kol Performed By: #### L [id number] ####[facility] ([facility])[address] [place] [address] Glucose [Mass/Vol] 204 mg/dL High 70-105 [facility] Comment on above: Order Comment: Waive d Testing in the ED is performed under the ED CLIA certificate #[id number]. Result Comment: [email or web address] Performed By: #### L [id number] ####[facility] ([facility])[address] [place] [address] Glucose [Mass/Vol] 222 mg/dL High 70-105 [facility] Comment on above: Order Comment: Waive d Testing in the ED is performed under the ED CLIA certificate #[id number]. Result Comment: [email or web address] Performed By: #### L [id number] ####[facility] ([facility])[address] [place] [address] Glucose [Mass/Vol] 141 mg/dL High 70-105 [facility] Comment on above: Order Comment: Waive d Testing in the ED is performed under the ED CLIA certificate #[id number]. Result Comment: [email or web address] Performed By: #### L [id number] ####[facility] ([facility])[address] [place] [address] 30on 09-04-2024 30 Normal [facility] BASIC METABOLIC PANELon 08-21 Anion gap [Moles/Vol] 7 mmol/L Normal 7-20 [facility] Comment on above: Performed By: #### L [id number] ####[facility] ([facility])[address] [place] [address] Calcium [Mass/Vol] 9.6 mg/dL Normal 8.6-10.3 [facility] Comment on above: Performed By: #### L [id number] ####[facility] ([facility])[address] [place] [address] Chloride [Moles/Vol] 98 mmol/L Normal 98-107 [facility] Comment on above: Performed By: #### L [id number] ####[facility] ([facility])[address] [place] [address] CO2 [Moles/Vol] 35 mmol/L High 21-31 [facility] Comment on above: Performed By: #### L [id number] ####[facility] ([facility])[address] [place] [address] Creatinine [Mass/Vol] 0.88 mg/dL Normal 0.70-1.30 [facility] Comment on above: Performed By: #### L [id number] ####[facility] ([facility])[address] [place] [address] GLOMERULAR FILTRATION RATE ML/MIN/1.73 SQ M.PREDICTED 95.4 mL/min/1.73m*2 Normal >60.0 [facility] Comment on above: Result Comment: [facility]???s estimated glomerular filtration rate (eGFR) will no longer include consideration of race in its calculation. The National Kidney Foundation???s eGFR Task Force developed new recommendations for the estimation of the glomerular filtration rate in the [place] They recommend immediate implementation of the new equation refit without the race variable in all laboratories because the calculation does not include race. In addition to not including race in the calculation and reporting, it included diversity in its development, and has acceptable performance characteristics and potential consequences that do not disproportionately affect any one group of individuals. Performed By: #### L [id number] ####[facility] ([facility])[address] [place] [address] Glucose [Mass/Vol] 155 mg/dL High 70-100 [facility] Comment on above: Performed By: #### L [id number] ####[facility] ([facility])[address] [place] [address] Potassium [Moles/Vol] 4.3 mmol/L Normal 3.5-5.1 [facility] Comment on above: Performed By: #### L [id number] ####[facility] ([facility])[address] [place] [address] Sodium [Moles/Vol] 136 mmol/L Normal 136-145 [facility] Comment on above: Performed By: #### L [id number] ####[facility] ([facility])[address] [place] [address] Urea nitrogen [Mass/Vol] 22 mg/dL Normal 7-25 [facility] Comment on above: Performed By: #### L [id number] ####[facility] ([facility])[address] [address] UREA NITROGEN/CREATININE (MASS RATIO) IN SER/PLAS 25.0 Normal [facility] Comment on above: Performed By: #### L [id number] ####[facility] ([facility])[address] [address] CBC WITH AUTO DIFFERENTIALon 09-04-2024 Basophils (Bld) [#/Vol] 0.06 10*3/uL Normal 0.00-0.20 [facility] Comment on above: Performed By: #### L [id number] ####[facility] ([facility])[address] [place] [address] Basophils/100 WBC (Bld) 1.0 % Normal 0.0-1.0 [facility] Comment on above: Performed By: #### L [id number] ####[facility] ([facility])[address] [place] [address] Eosinophils (Bld) [#/Vol] 0.38 10*3/uL Normal 0.00-0.50 [facility] Comment on above: Performed By: #### L [id number] ####[facility] [place] [address] Eosinophils/100 WBC (Bld) 6.1 % High 0.0-6.0 [facility] Comment on above: Performed By: #### L [id number] ####[facility] ([facility])[address] [place] [address] Erythrocyte distribution width (RBC) [Ratio] 15.2 % High 11.5-15.0 [facility] Comment on above: Performed By: #### L [id number] ####[facility] ([facility])[address] [place] [address] ERYTHROCYTE MEAN CORPUSCULAR HEMOGLOBIN CONCENTRATION (G/DL) BY AUTOMATED 30.6 g/dL Low 32.0-35.0 [facility] Comment on above: Performed By: #### L [id number] ####[facility] [place] [address] Hematocrit (Bld) [Volume fraction] 48.4 % Normal 39.0-55.0 [facility] Comment on above: Performed By: #### L [id number] ####[facility] ([facility])[address] [place] [address] Hemoglobin (Bld) [Mass/Vol] 14.8 g/dL Normal 13.0-17.0 [facility] Comment on above: Performed By: #### L [id number] ####[facility] [place] [address] Immature granulocytes (Bld) [#/Vol] 0.04 10*3/uL Normal 0.00-0.20 [facility] Comment on above: Performed By: #### L [id number] ####[facility] [place] [address] Immature granulocytes/100 WBC (Bld) 0.6 % Normal 0.0-1.0 [facility] Comment on above: Performed By: #### L [id number] ####[facility] ([facility])[address] [place] [address] Lymphocytes (Bld) [#/Vol] 1.68 10*3/uL Normal 1.20-4.00 [facility] Comment on above: Performed By: #### L [id number] ####[facility] ([facility])[address] [place] [address] Lymphocytes/100 WBC (Bld) 27.1 % Normal 20.0-45.0 [facility] Comment on above: Performed By: #### L [id number] ####[facility] ([facility])[address] [place] [address] MCH (RBC) [Entitic mass] 28.6 pg Normal 27.0-33.0 [facility] Comment on above: Performed By: #### L [id number] ####[facility] [place] [address] MCV (RBC) [Entitic vol] 93.6 fL Normal 82.0-98.0 [facility] Comment on above: Performed By: #### L [id number] ####[facility] [place] [address] Monocytes (Bld) [#/Vol] 0.74 10*3/uL Normal 0.10-1.00 [facility] Comment on above: Performed By: #### L [id number] ####[facility] ([facility])[address] [place] [address] Monocytes/100 WBC (Bld) 11.9 % Normal 5.0-12.0 [facility] Comment on above: Performed By: #### L [id number] ####[facility] ([facility])[address] [place] [address] Neutrophils (Bld) [#/Vol] 3.31 10*3/uL Normal 1.60-7.60 [facility] Comment on above: Performed By: #### L [id number] ####[facility] ([facility])[address] [place] [address] Neutrophils/100 WBC (Bld) 53.3 % Normal 40.0-72.0 [facility] Comment on above: Performed By: #### L [id number] ####[facility] [place] [address] NRBC (PER 100 WBCS) BY AUTOMATED COUNT 0.0 % Normal 0 [facility] Comment on above: Performed By: #### L [id number] ####[facility] [place] [address] PLATELETS (10*3/UL) IN BLOOD AUTOMATED COUNT 254 10*3/uL Normal 150-400 [facility] Comment on above: Performed By: #### L [id number] ####[facility] [place] [address] RBC (Bld) [#/Vol] 5.17 10*6/uL Normal 4.20-5.70 [facility] Comment on above: Performed By: #### L [id number] ####[facility] ([facility])[address] [place] [address] WBC (Bld) [#/Vol] 6.21 10*3/uL Normal 4.00-10.60 [facility] Comment on above: Performed By: #### L [id number] ####[facility] ([facility])[address] [place] [address] POCT GLUCOSE METER UNSOLICIT ED RESULTSon 09-04-2024 Glucose [Mass/Vol] 219 mg/dL High 70-105 [facility] Comment on above: Order Comment: Waive d Testing in the ED is performed under the ED CLIA certificate #[id number]. Result Comment: [email or web address] Performed By: #### L [id number] ####[facility] ([facility])[address] [place] [address] Glucose [Mass/Vol] 156 mg/dL High 70-105 [facility] Comment on above: Order Comment: Waive d Testing in the ED is performed under the ED CLIA certificate #[id number]. Result Comment: [email or web address] Performed By: #### L [id number] ####[facility] ([facility])[address] [place] [address] Glucose [Mass/Vol] 190 mg/dL High 70-105 [facility] Comment on above: Order Comment: Waive d Testing in the ED is performed under the ED CLIA certificate #[id number]. Result Comment: [email or web address] Performed By: #### L [id number] ####[facility] [place] [address] Glucose [Mass/Vol] 149 mg/dL High 70-105 [facility] Comment on above: Order Comment: Waive d Testing in the ED is performed under the ED CLIA certificate #[id number]. Result Comment: [email or web address] [email or web address] Performed By: #### L [id number] ####[facility] ([facility])[address] [place] [address] 30on 09-03-2024 30 Normal [facility] BASIC METABOLIC PANELon 08-21 Anion gap [Moles/Vol] 11 mmol/L Normal 7-20 [facility] Comment on above: Performed By: #### L [id number] ####[facility] ([facility])[address] [place] [address] Calcium [Mass/Vol] 9.7 mg/dL Normal 8.6-10.3 [facility] Comment on above: Performed By: #### L [id number] ####[facility] ([facility])[address] [place] [address] Chloride [Moles/Vol] 96 mmol/L Low 98-107 [facility] Comment on above: Performed By: #### L [id number] ####[facility] ([facility])[address] [place] [address] CO2 [Moles/Vol] 33 mmol/L High 21-31 [facility] Comment on above: Performed By: #### L [id number] ####[facility] ([facility])[address] [place] [address] Creatinine [Mass/Vol] 0.87 mg/dL Normal 0.70-1.30 [facility] Comment on above: Performed By: #### L [id number] ####[facility] ([facility]ER)[address] [place] [address] GLOMERULAR FILTRATION RATE ML/MIN/1.73 SQ M.PREDICTED 95.8 mL/min/1.73m*2 Normal >60.0 [facility] Comment on above: Result Comment: [facility]???s estimated glomerular filtration rate (eGFR) will no longer include consideration of race in its calculation. The National Kidney Foundation???s eGFR Task Force developed new recommendations for the estimation of the glomerular filtration rate in the [place] They recommend immediate implementation of the new equation refit without the race variable in all laboratories because the calculation does not include race. In addition to not including race in the calculation and reporting, it included diversity in its development, and has acceptable performance characteristics and potential consequences that do not disproportionately affect any one group of individuals. Performed By: #### L [id number] ####[facility] ([facility])[address] [place] [address] Glucose [Mass/Vol] 161 mg/dL High 70-100 [facility] Comment on above: Performed By: #### L [id number] ####[facility] ([facility])[address] [place] [address] Potassium [Moles/Vol] 4.2 mmol/L Normal 3.5-5.1 [facility] Comment on above: Performed By: #### L [id number] ####[facility] ([facility])[address] [place] [address] Sodium [Moles/Vol] 136 mmol/L Normal 136-145 [facility] Comment on above: Performed By: #### L [id number] ####[facility] ([facility])[address] [place] [address] Urea nitrogen [Mass/Vol] 23 mg/dL Normal 7-25 [facility] Comment on above: Performed By: #### L [id number] ####[facility] ([facility])[address] [place] [address] UREA NITROGEN/CREATININE (MASS RATIO) IN SER/PLAS 26.4 Normal [facility] Comment on above: Performed By: #### L [id number] ####[facility] ([facility])[address] [place] [address] CBC WITH AUTO DIFFERENTIALon 09-03-2024 Basophils (Bld) [#/Vol] 0.07 10*3/uL Normal 0.00-0.20 [facility] Comment on above: Performed By: #### L [id number] ####[facility] ([facility])[address] [place] [address] Basophils/100 WBC (Bld) 0.8 % Normal 0.0-1.0 [facility] Comment on above: Performed By: #### L [id number] ####[facility] ([facility])[address] [place] [address] Eosinophils (Bld) [#/Vol] 0.40 10*3/uL Normal 0.00-0.50 [facility] Comment on above: Performed By: #### L [id number] ####[facility] (BEAKER)[address] [place] [address] Eosinophils/100 WBC (Bld) 4.8 % Normal 0.0-6.0 [facility] Comment on above: Performed By: #### L [id number] ####[facility] ([facility])[address] [place] [address] Erythrocyte distribution width (RBC) [Ratio] 15.3 % High 11.5-15.0 [facility] Comment on above: Performed By: #### L [id number] ####[facility] ([facility]ER)[address] [place] [address] ERYTHROCYTE MEAN CORPUSCULAR HEMOGLOBIN CONCENTRATION (G/DL) BY AUTOMATED 31.8 g/dL Low 32.0-35.0 [facility] Comment on above: Performed By: #### L [id number] ####[facility] ([facility]ER)[address] [place] [address] Hematocrit (Bld) [Volume fraction] 46.8 % Normal 39.0-55.0 [facility] Comment on above: Performed By: #### L [id number] ####[facility] ([facility]ER)[address] [place] [address] Hemoglobin (Bld) [Mass/Vol] 14.9 g/dL Normal 13.0-17.0 [facility] Comment on above: Performed By: #### L [id number] ####[facility] (BE[facility]ER)[address] [place] [address] Immature granulocytes (Bld) [#/Vol] 0.05 10*3/uL Normal 0.00-0.20 [facility] Comment on above: Performed By: #### L [id number] ####[facility] (BEAKER)[address] [place] [address] Immature granulocytes/100 WBC (Bld) 0.6 % Normal 0.0-1.0 [facility] Comment on above: Performed By: #### L [id number] ####[facility] (BEAKER)[address] [place] [address] Lymphocytes (Bld) [#/Vol] 1.73 10*3/uL Normal 1.20-4.00 [facility] Comment on above: Performed By: #### L [id number] ####[facility] (BEAKER)[address] [place] [address] Lymphocytes/100 WBC (Bld) 20.9 % Normal 20.0-45.0 [facility] Comment on above: Performed By: #### L [id number] ####[facility] (BEAKER)[address] [place] [address] MCH (RBC) [Entitic mass] 29.3 pg Normal 27.0-33.0 [facility] Comment on above: Performed By: #### L [id number] ####[facility] (BEAKER)[address] [place] [address] MCV (RBC) [Entitic vol] 91.9 fL Normal 82.0-98.0 [facility] Comment on above: Performed By: #### L [id number] ####[facility] ([facility]ER)[address] [place] [address] Monocytes (Bld) [#/Vol] 0.96 10*3/uL Normal 0.10-1.00 [facility] Comment on above: Performed By: #### L [id number] ####[facility] (BEAKER)[address] [place] [address] Monocytes/100 WBC (Bld) 11.6 % Normal 5.0-12.0 [facility] Comment on above: Performed By: #### L [id number] ####[facility] ([facility])[address] [place] [address] Neutrophils (Bld) [#/Vol] 5.06 10*3/uL Normal 1.60-7.60 [facility] Comment on above: Performed By: #### L [id number] ####[facility] ([facility])[address] [address] Neutrophils/100 WBC (Bld) 61.3 % Normal 40.0-72.0 [facility] Comment on above: Performed By: #### L [id number] ####[facility] ([facility])[address] [place] [address] NRBC (PER 100 WBCS) BY AUTOMATED COUNT 0.0 % Normal 0 [facility] Comment on above: Performed By: #### L [id number] ####[facility] ([facility])[address] [place] [address] PLATELETS (10*3/UL) IN BLOOD AUTOMATED COUNT 264 10*3/uL Normal 150-400 [facility] Comment on above: Performed By: #### L [id number] ####[facility] ([facility])[address] [address] RBC (Bld) [#/Vol] 5.09 10*6/uL Normal 4.20-5.70 [facility] Comment on above: Performed By: #### L [id number] ####[facility] ([facility])[address] [address] WBC (Bld) [#/Vol] 8.27 10*3/uL Normal 4.00-10.60 [facility] Comment on above: Performed By: #### L [id number] ####[facility] ([facility])[address] [place] [address] MAGNESIUMon 09-03-2024 Magnesium [Mass/Vol] 1.6 mg/dL Low 1.9-2.7 [facility] Comment on above: Performed By: #### L [id number] ####[facility] ([facility])[address] [place] [address] PHOSPHORUSon 09-03-2024 Magnesium [Mass/Vol] 3.3 mg/dL Normal 2.5-5.0 [facility] Comment on above: Performed By: #### L [id number] ####[facility] ([facility])[address] [place] [address] POCT GLUCOSE METER UNSOLICIT ED RESULTSon 09-03-2024 Glucose [Mass/Vol] 168 mg/dL High 70-105 [facility] Comment on above: Order Comment: Waive d Testing in the ED is performed under the ED CLIA certificate #[id number]. Result Comment: [email or web address] pp Performed By: #### L [id number] ####[facility] ([facility])[address] [place] [address] Glucose [Mass/Vol] 184 mg/dL High 70-105 [facility] Comment on above: Order Comment: Waive d Testing in the ED is performed under the ED CLIA certificate #[id number]. Result Comment: [email or web address] [email or web address] Performed By: #### L [id number] ####[facility] ([facility])[address] [place] [address] Glucose [Mass/Vol] 205 mg/dL High 70-105 [facility] Comment on above: Order Comment: Waive d Testing in the ED is performed under the ED CLIA certificate #[id number]. Result Comment: [email or web address] [email or web address] Performed By: #### L [id number] ####[facility] ([facility])[address] [place] [address] Glucose [Mass/Vol] 145 mg/dL High 70-105 [facility] Comment on above: Order Comment: Waive d Testing in the ED is performed under the ED CLIA certificate #[id number]. Result Comment: [email or web address] [email or web address] Performed By: #### L [id number] ####[facility] ([facility])[address] [place] [address] 30on 09-02-2024 30 Normal [facility] BASIC METABOLIC PANELon 08-21 Anion gap [Moles/Vol] 8 mmol/L Normal 7-20 [facility] Comment on above: Performed By: #### L [id number] ####[facility] (BEAKER)[address] [place] [address] Calcium [Mass/Vol] 9.5 mg/dL Normal 8.6-10.3 [facility] Comment on above: Performed By: #### L [id number] ####[facility] (BEAKER)[address] [place] [address] Chloride [Moles/Vol] 99 mmol/L Normal 98-107 [facility] Comment on above: Performed By: #### L [id number] ####[facility] (BEAKER)[address] [place] [address] CO2 [Moles/Vol] 37 mmol/L High 21-31 [facility] Comment on above: Performed By: #### L [id number] ####[facility] ([facility]ER)[address] [place] [address] Creatinine [Mass/Vol] 0.77 mg/dL Normal 0.70-1.30 [facility] Comment on above: Performed By: #### L [id number] ####[facility] (BEAKER)[address] [place] [address] GLOMERULAR FILTRATION RATE ML/MIN/1.73 SQ M.PREDICTED 99.4 mL/min/1.73m*2 Normal >60.0 [facility] Comment on above: Result Comment: [facility]???s estimated glomerular filtration rate (eGFR) will no longer include consideration of race in its calculation. The National Kidney Foundation???s eGFR Task Force developed new recommendations for the estimation of the glomerular filtration rate in the [place] They recommend immediate implementation of the new equation refit without the race variable in all laboratories because the calculation does not include race. In addition to not including race in the calculation and reporting, it included diversity in its development, and has acceptable performance characteristics and potential consequences that do not disproportionately affect any one group of individuals. Performed By: #### L [id number] ####[facility] ([facility])[address] [place] [address] Glucose [Mass/Vol] 160 mg/dL High 70-100 [facility] Comment on above: Performed By: #### L [id number] ####[facility] ([facility])[address] [place] [address] Potassium [Moles/Vol] 4.1 mmol/L Normal 3.5-5.1 [facility] Comment on above: Performed By: #### L [id number] ####[facility] ([facility])[address] [place] [address] Sodium [Moles/Vol] 140 mmol/L Normal 136-145 [facility] Comment on above: Performed By: #### L [id number] ####[facility] ([facility] [facility] [place] [address] Urea nitrogen [Mass/Vol] 16 mg/dL Normal 7-25 [facility] Comment on above: Performed By: #### L [id number] ####[facility] ([facility])[address] [place] [address] UREA NITROGEN/CREATININE (MASS RATIO) IN SER/PLAS 20.8 Normal [facility] Comment on above: Performed By: #### L [id number] ####[facility] ([facility])[address] [place] [address] CBC WITH AUTO DIFFERENTIALon 09-02-2024 Basophils (Bld) [#/Vol] 0.07 10*3/uL Normal 0.00-0.20 [facility] Comment on above: Performed By: #### L [id number] ####[facility] ([facility])[address] [place] [address] Basophils/100 WBC (Bld) 1.0 % Normal 0.0-1.0 [facility] Comment on above: Performed By: #### L [id number] ####[facility] ([facility])[address] [place] [address] Eosinophils (Bld) [#/Vol] 0.34 10*3/uL Normal 0.00-0.50 [facility] Comment on above: Performed By: #### L [id number] ####[facility] ([facility])[address] [place] [address] Eosinophils/100 WBC (Bld) 5.0 % Normal 0.0-6.0 [facility] Comment on above: Performed By: #### L [id number] ####[facility] ([facility])[address] [place] [address] Erythrocyte distribution width (RBC) [Ratio] 15.1 % High 11.5-15.0 [facility] Comment on above: Performed By: #### L [id number] ####[facility] ([facility])[address] [place] [address] ERYTHROCYTE MEAN CORPUSCULAR HEMOGLOBIN CONCENTRATION (G/DL) BY AUTOMATED 31.0 g/dL Low 32.0-35.0 [facility] Comment on above: Performed By: #### L [id number] ####[facility] ([facility])[address] [place] [address] Hematocrit (Bld) [Volume fraction] 46.2 % Normal 39.0-55.0 [facility] Comment on above: Performed By: #### L [id number] ####[facility] [place] [address] Hemoglobin (Bld) [Mass/Vol] 14.3 g/dL Normal 13.0-17.0 [facility] Comment on above: Performed By: #### L [id number] ####[facility] [place] [address] Immature granulocytes (Bld) [#/Vol] 0.04 10*3/uL Normal 0.00-0.20 [facility] Comment on above: Performed By: #### L [id number] ####[facility] ([facility])[address] [place] [address] Immature granulocytes/100 WBC (Bld) 0.6 % Normal 0.0-1.0 [facility] Comment on above: Performed By: #### L [id number] ####[facility] ([facility])[address] [place] [address] Lymphocytes (Bld) [#/Vol] 1.60 10*3/uL Normal 1.20-4.00 [facility] Comment on above: Performed By: #### L [id number] ####[facility] ([facility])[address] [place] [address] Lymphocytes/100 WBC (Bld) 23.7 % Normal 20.0-45.0 [facility] Comment on above: Performed By: #### L [id number] ####[facility] ([facility])[address] [place] [address] MCH (RBC) [Entitic mass] 28.8 pg Normal 27.0-33.0 [facility] Comment on above: Performed By: #### L [id number] ####[facility] ([facility])[address] [place] [address] MCV (RBC) [Entitic vol] 93.1 fL Normal 82.0-98.0 [facility] Comment on above: Performed By: #### L [id number] ####[facility] ([facility])[address] [place] [address] Monocytes (Bld) [#/Vol] 0.86 10*3/uL Normal 0.10-1.00 [facility] Comment on above: Performed By: #### L [id number] ####[facility] ([facility])[address] [place] [address] Monocytes/100 WBC (Bld) 12.8 % High 5.0-12.0 [facility] Comment on above: Performed By: #### L [id number] ####[facility] ([facility])[address] [place] [address] Neutrophils (Bld) [#/Vol] 3.83 10*3/uL Normal 1.60-7.60 [facility] Comment on above: Performed By: #### L [id number] ####[facility] ([facility])[address] [place] [address] Neutrophils/100 WBC (Bld) 56.9 % Normal 40.0-72.0 [facility] Comment on above: Performed By: #### L [id number] ####[facility] ([facility])[address] [place] [address] NRBC (PER 100 WBCS) BY AUTOMATED COUNT 0.0 % Normal 0 [facility] Comment on above: Performed By: #### L [id number] ####[facility] ([facility])[address] [place] [address] PLATELETS (10*3/UL) IN BLOOD AUTOMATED COUNT 264 10*3/uL Normal 150-400 [facility] Comment on above: Performed By: #### L [id number] ####[facility] ([facility])[address] [place] [address] RBC (Bld) [#/Vol] 4.96 10*6/uL Normal 4.20-5.70 [facility] Comment on above: Performed By: #### L [id number] ####[facility] ([facility])[address] [place] [address] WBC (Bld) [#/Vol] 6.74 10*3/uL Normal 4.00-10.60 [facility] Comment on above: Performed By: #### L [id number] ####[facility] ([facility])[address] [place] [address] NURSNOTEon 09-02-2024 NURSNOTE Normal [facility] NURSNOTE Normal [facility] PHOSPHORUSon 09-02-2024 Magnesium [Mass/Vol] 3.1 mg/dL Normal 2.5-5.0 [facility] Comment on above: Performed By: #### L [id number] ####[facility] ([facility])[address] [place] [address] POCT GLUCOSE METER UNSOLICIT ED RESULTSon 09-02-2024 Glucose [Mass/Vol] 289 mg/dL High 70-105 [facility] Comment on above: Order Comment: Waive d Testing in the ED is performed under the ED CLIA certificate #[id number]. Result Comment: [email or web address] Performed By: #### L [id number] ####[facility] ([facility])[address] [place] [address] Glucose [Mass/Vol] 260 mg/dL High 70-105 [facility] Comment on above: Order Comment: Waive d Testing in the ED is performed under the ED CLIA certificate #[id number]. Result Comment: [email or web address] Performed By: #### L [id number] ####[facility] ([facility])[address] [place] [address] Glucose [Mass/Vol] 204 mg/dL High 70-105 [facility] Comment on above: Order Comment: Waive d Testing in the ED is performed under the ED CLIA certificate #[id number]. Result Comment: [email or web address] Performed By: #### L [id number] ####[facility] ([facility])[address] [place] [address] Glucose [Mass/Vol] 166 mg/dL High 70-105 [facility] Comment on above: Order Comment: Waive d Testing in the ED is performed under the ED CLIA certificate #[id number]. Result Comment: [email or web address] Performed By: #### L [id number] ####[facility] ([facility])[address] [place] [address] 30on 09-01-2024 30 Normal [facility] BASIC METABOLIC PANELon 08-21 Anion gap [Moles/Vol] 7 mmol/L Normal 7-20 [facility] Comment on above: Performed By: #### L [id number] ####[facility] ([place])[address] [place] [address] Calcium [Mass/Vol] 9.1 mg/dL Normal 8.6-10.3 [facility] Comment on above: Performed By: #### L [id number] ####[facility] [place] [address] Chloride [Moles/Vol] 98 mmol/L Normal 98-107 [facility] Comment on above: Performed By: #### L [id number] ####[facility] ([facility])[address] [place] [address] CO2 [Moles/Vol] 36 mmol/L High 21-31 [facility] Comment on above: Performed By: #### L [id number] ####[facility] ([facility])[address] [place] [address] Creatinine [Mass/Vol] 0.84 mg/dL Normal 0.70-1.30 [facility] Comment on above: Performed By: #### L [id number] ####[facility] ([facility])[address] [place] [address] GLOMERULAR FILTRATION RATE ML/MIN/1.73 SQ M.PREDICTED 96.8 mL/min/1.73m*2 Normal >60.0 [facility] Comment on above: Result Comment: [facility]???s estimated glomerular filtration rate (eGFR) will no longer include consideration of race in its calculation. The National Kidney Foundation???s eGFR Task Force developed new recommendations for the estimation of the glomerular filtration rate in the [place] They recommend immediate implementation of the new equation refit without the race variable in all laboratories because the calculation does not include race. In addition to not including race in the calculation and reporting, it included diversity in its development, and has acceptable performance characteristics and potential consequences that do not disproportionately affect any one group of individuals. Performed By: #### L [id number] ####[facility] ([facility] [place] [address] Glucose [Mass/Vol] 190 mg/dL High 70-100 [facility] Comment on above: Performed By: #### L [id number] ####[facility] ([facility] [place] [address] Potassium [Moles/Vol] 4.1 mmol/L Normal 3.5-5.1 [facility] Comment on above: Performed By: #### L [id number] ####[facility] [place] [address] Sodium [Moles/Vol] 137 mmol/L Normal 136-145 [facility] Comment on above: Performed By: #### L [id number] ####[facility] ([facility] [place] [address] Urea nitrogen [Mass/Vol] 18 mg/dL Normal 7-25 [facility] Comment on above: Performed By: #### L [id number] ####[facility] ([facility])[address] [place] [address] UREA NITROGEN/CREATININE (MASS RATIO) IN SER/PLAS 21.4 Normal [facility] Comment on above: Performed By: #### L [id number] ####[facility] ([facility] [place] [address] CBC WITH AUTO DIFFERENTIALon 09-01-2024 Basophils (Bld) [#/Vol] 0.07 10*3/uL Normal 0.00-0.20 [facility] Comment on above: Performed By: #### L [id number] ####[facility] ([facility])[address] [place] [address] Basophils/100 WBC (Bld) 1.0 % Normal 0.0-1.0 [facility] Comment on above: Performed By: #### L [id number] ####[facility] ([facility])[address] [place] [address] Eosinophils (Bld) [#/Vol] 0.37 10*3/uL Normal 0.00-0.50 [facility] Comment on above: Performed By: #### L [id number] ####[facility] ([facility])[address] [place] [address] Eosinophils/100 WBC (Bld) 5.1 % Normal 0.0-6.0 [facility] Comment on above: Performed By: #### L [id number] ####[facility] ([facility])[address] [place] [address] Erythrocyte distribution width (RBC) [Ratio] 15.1 % High 11.5-15.0 [facility] Comment on above: Performed By: #### L [id number] ####[facility] ([facility])[address] [place] [address] ERYTHROCYTE MEAN CORPUSCULAR HEMOGLOBIN CONCENTRATION (G/DL) BY AUTOMATED 31.3 g/dL Low 32.0-35.0 [facility] Comment on above: Performed By: #### L [id number] ####[facility] ([facility])[address] [place] [address] Hematocrit (Bld) [Volume fraction] 46.3 % Normal 39.0-55.0 [facility] Comment on above: Performed By: #### L [id number] ####[facility] ([facility])[address] [place] [address] Hemoglobin (Bld) [Mass/Vol] 14.5 g/dL Normal 13.0-17.0 [facility] Comment on above: Performed By: #### L [id number] ####[facility] [place] [address] Immature granulocytes (Bld) [#/Vol] 0.04 10*3/uL Normal 0.00-0.20 [facility] Comment on above: Performed By: #### L [id number] ####[facility] ([facility] [place] [address] Immature granulocytes/100 WBC (Bld) 0.6 % Normal 0.0-1.0 [facility] Comment on above: Performed By: #### L [id number] ####[facility] ([facility])[address] [place] [address] Lymphocytes (Bld) [#/Vol] 1.46 10*3/uL Normal 1.20-4.00 [facility] Comment on above: Performed By: #### L [id number] ####[facility] ([facility])[address] [place] [address] Lymphocytes/100 WBC (Bld) 20.2 % Normal 20.0-45.0 [facility] Comment on above: Performed By: #### L [id number] ####[facility] ([facility])[address] [place] [address] MCH (RBC) [Entitic mass] 29.1 pg Normal 27.0-33.0 [facility] Comment on above: Performed By: #### L [id number] ####[facility] ([facility])[address] [place] [address] MCV (RBC) [Entitic vol] 92.8 fL Normal 82.0-98.0 [facility] Comment on above: Performed By: #### L [id number] ####[facility] ([facility])[address] [place] [address] Monocytes (Bld) [#/Vol] 0.85 10*3/uL Normal 0.10-1.00 [facility] Comment on above: Performed By: #### L [id number] ####[facility] ([facility])[address] [place] [address] Monocytes/100 WBC (Bld) 11.8 % Normal 5.0-12.0 [facility] Comment on above: Performed By: #### L [id number] ####[facility] ([facility])[address] [place] [address] Neutrophils (Bld) [#/Vol] 4.43 10*3/uL Normal 1.60-7.60 [facility] Comment on above: Performed By: #### L [id number] ####[facility] ([facility])[address] [place] [address] Neutrophils/100 WBC (Bld) 61.3 % Normal 40.0-72.0 [facility] Comment on above: Performed By: #### L [id number] ####[facility] ([facility])[address] [place] [address] NRBC (PER 100 WBCS) BY AUTOMATED COUNT 0.0 % Normal 0 [facility] Comment on above: Performed By: #### L [id number] ####[facility] ([facility])[address] [place] [address] PLATELETS (10*3/UL) IN BLOOD AUTOMATED COUNT 268 10*3/uL Normal 150-400 [facility] Comment on above: Performed By: #### L [id number] ####[facility] ([facility])[address] [place] [address] RBC (Bld) [#/Vol] 4.99 10*6/uL Normal 4.20-5.70 [facility] Comment on above: Performed By: #### L [id number] ####[facility] ([facility])[address] [place] [address] WBC (Bld) [#/Vol] 7.22 10*3/uL Normal 4.00-10.60 [facility] Comment on above: Performed By: #### L [id number] ####[facility] ([facility])[address] [place] [address] MAGNESIUMon 09-01-2024 Magnesium [Mass/Vol] 1.8 mg/dL Low 1.9-2.7 [facility] Comment on above: Performed By: #### L [id number] ####[facility] ([facility])[address] [place] [address] POCT GLUCOSE METER UNSOLICIT ED RESULTSon 09-01-2024 Glucose [Mass/Vol] 225 mg/dL High 70-105 [facility] Comment on above: Order Comment: Waive d Testing in the ED is performed under the ED CLIA certificate #[id number]. Result Comment: [email or web address] Performed By: #### L [id number] ####[facility] ([facility])[address] [place] [address] Glucose [Mass/Vol] 181 mg/dL High 70-105 [facility] Comment on above: Order Comment: Waive d Testing in the ED is performed under the ED CLIA certificate #[id number]. Result Comment: [email or web address] Performed By: #### L [id number] ####[facility] ([facility])[address] [place] [address] Glucose [Mass/Vol] 209 mg/dL High 70-105 [facility] Comment on above: Order Comment: Waive d Testing in the ED is performed under the ED CLIA certificate #[id number]. Result Comment: [email or web address] Performed By: #### L [id number] ####[facility] ([facility])[address] [place] [address] Glucose [Mass/Vol] 181 mg/dL High 70-105 [facility] Comment on above: Order Comment: Waive d Testing in the ED is performed under the ED CLIA certificate #[id number]. Result Comment: [email or web address] Performed By: #### L [id number] ####[facility] ([facility])[address] [place] [address] 30on 08-31-2024 30 Normal [facility] 30 Normal [facility] BASIC METABOLIC PANELon 08-21 Anion gap [Moles/Vol] 8 mmol/L Normal 7-20 [facility] Comment on above: Performed By: #### L [id number] ####[facility] ([facility])[address] [place] [address] Calcium [Mass/Vol] 9.6 mg/dL Normal 8.6-10.3 [facility] Comment on above: Performed By: #### L [id number] ####[facility] ([facility])[address] [place] [address] Chloride [Moles/Vol] 97 mmol/L Low 98-107 [facility] Comment on above: Performed By: #### L [id number] ####[facility] ([facility])[address] [place] [address] CO2 [Moles/Vol] 35 mmol/L High 21-31 [facility] Comment on above: Performed By: #### L [id number] ####[facility] ([facility])[address] [place] [address] Creatinine [Mass/Vol] 0.85 mg/dL Normal 0.70-1.30 [facility] Comment on above: Performed By: #### L [id number] ####[facility] ([facility])[address] [place] [address] GLOMERULAR FILTRATION RATE ML/MIN/1.73 SQ M.PREDICTED 96.4 mL/min/1.73m*2 Normal >60.0 [facility] Comment on above: Result Comment: [facility]???s estimated glomerular filtration rate (eGFR) will no longer include consideration of race in its calculation. The National Kidney Foundation???s eGFR Task Force developed new recommendations for the estimation of the glomerular filtration rate in the [place] They recommend immediate implementation of the new equation refit without the race variable in all laboratories because the calculation does not include race. In addition to not including race in the calculation and reporting, it included diversity in its development, and has acceptable performance characteristics and potential consequences that do not disproportionately affect any one group of individuals. Performed By: #### L [id number] ####[facility] ([facility])[address] [place] [address] Glucose [Mass/Vol] 205 mg/dL High 70-100 [facility] Comment on above: Performed By: #### L [id number] ####[facility] ([facility])[address] [place] [address] Potassium [Moles/Vol] 3.9 mmol/L Normal 3.5-5.1 [facility] Comment on above: Performed By: #### L [id number] ####[facility] ([facility])[address] [place] [address] Sodium [Moles/Vol] 136 mmol/L Normal 136-145 [facility] Comment on above: Performed By: #### L [id number] ####[facility] ([facility])[address] [place] [place] [address] Urea nitrogen [Mass/Vol] 21 mg/dL Normal 7-25 [facility] Comment on above: Performed By: #### L [id number] ####[facility] ([facility])[address] [place] [address] UREA NITROGEN/CREATININE (MASS RATIO) IN SER/PLAS 24.7 Normal [facility] Comment on above: Performed By: #### L [id number] ####[facility] ([facility])[address] [place] [address] CBC WITH AUTO DIFFERENTIALon 08-31-2024 Basophils (Bld) [#/Vol] 0.06 10*3/uL Normal 0.00-0.20 [facility] Comment on above: Performed By: #### L [id number] ####[facility] [place] [address] Basophils/100 WBC (Bld) 0.8 % Normal 0.0-1.0 [facility] Comment on above: Performed By: #### L [id number] ####[facility] ([facility])[address] [place] [address] Eosinophils (Bld) [#/Vol] 0.38 10*3/uL Normal 0.00-0.50 [facility] Comment on above: Performed By: #### L [id number] ####[facility] ([facility])[address] [place], [place] [address] Eosinophils/100 WBC (Bld) 5.3 % Normal 0.0-6.0 [facility] Comment on above: Performed By: #### L [id number] ####[facility] ([facility])[address] [place] [address] Erythrocyte distribution width (RBC) [Ratio] 15.2 % High 11.5-15.0 [facility] Comment on above: Performed By: #### L [id number] ####[facility] ([facility])[address] [place] [address] ERYTHROCYTE MEAN CORPUSCULAR HEMOGLOBIN CONCENTRATION (G/DL) BY AUTOMATED 30.4 g/dL Low 32.0-35.0 [facility] Comment on above: Performed By: #### L [id number] ####[facility] ([facility])[address] [place] [address] Hematocrit (Bld) [Volume fraction] 48.3 % Normal 39.0-55.0 [facility] Comment on above: Performed By: #### L [id number] ####[facility] ([facility])[address] [place] [address] Hemoglobin (Bld) [Mass/Vol] 14.7 g/dL Normal 13.0-17.0 [facility] Comment on above: Performed By: #### L [id number] ####[facility] ([facility])[address] [place] [address] Immature granulocytes (Bld) [#/Vol] 0.06 10*3/uL Normal 0.00-0.20 [facility] Comment on above: Performed By: #### L [id number] ####[facility] ([facility])[address] [place] [address] Immature granulocytes/100 WBC (Bld) 0.8 % Normal 0.0-1.0 [facility] Comment on above: Performed By: #### L [id number] ####[facility] ([facility])[address] [place] [address] Lymphocytes (Bld) [#/Vol] 1.17 10*3/uL Low 1.20-4.00 [facility] Comment on above: Performed By: #### L [id number] ####[facility] ([facility])[address] [place] [address] Lymphocytes/100 WBC (Bld) 16.3 % Low 20.0-45.0 [facility] Comment on above: Performed By: #### L [id number] ####[facility] ([facility])[address] [place] [address] MCH (RBC) [Entitic mass] 29.0 pg Normal 27.0-33.0 [facility] Comment on above: Performed By: #### L [id number] ####[facility] ([facility])[address] [place] [address] MCV (RBC) [Entitic vol] 95.3 fL Normal 82.0-98.0 [facility] Comment on above: Performed By: #### L [id number] ####[facility] ([facility])[address] [place] [address] Monocytes (Bld) [#/Vol] 0.82 10*3/uL Normal 0.10-1.00 [facility] Comment on above: Performed By: #### L [id number] ####[facility] ([facility])[address] [place] [address] Monocytes/100 WBC (Bld) 11.4 % Normal 5.0-12.0 [facility] Comment on above: Performed By: #### L [id number] ####[facility] ([facility])[address] [place] [address] Neutrophils (Bld) [#/Vol] 4.70 10*3/uL Normal 1.60-7.60 [facility] Comment on above: Performed By: #### L [id number] ####[facility] ([facility])[address] [place] [address] Neutrophils/100 WBC (Bld) 65.4 % Normal 40.0-72.0 [facility] [facility] Comment on above: Performed By: #### L [id number] ####[facility] ([facility])[address] [place] [address] NRBC (PER 100 WBCS) BY AUTOMATED COUNT 0.0 % Normal 0 [facility] Comment on above: Performed By: #### L [id number] ####[facility] ([facility] [place] [address] PLATELETS (10*3/UL) IN BLOOD AUTOMATED COUNT 278 10*3/uL Normal 150-400 [facility] Comment on above: Performed By: #### L [id number] ####[facility] ([facility])[address] [place] [address] RBC (Bld) [#/Vol] 5.07 10*6/uL Normal 4.20-5.70 [facility] Comment on above: Performed By: #### L [id number] ####[facility] ([facility])[address] [place] [address] WBC (Bld) [#/Vol] 7.19 10*3/uL Normal 4.00-10.60 [facility] Comment on above: Performed By: #### L [id number] ####[facility] ([facility])[address] [place] [address] MAGNESIUMon 08-31-2024 Magnesium [Mass/Vol] 1.6 mg/dL Low 1.9-2.7 [facility] Comment on above: Performed By: #### L [id number] ####[facility] ([facility])[address] [place] [address] POCT GLUCOSE METER UNSOLICIT ED RESULTSon 08-31-2024 Glucose [Mass/Vol] 281 mg/dL High 70-105 [facility] Comment on above: Order Comment: Waive d Testing in the ED is performed under the ED CLIA certificate #[id number]. Result Comment: [email or web address] hro Performed By: #### L [id number] ####[facility] ([facility])[address] [place] [address] Glucose [Mass/Vol] 157 mg/dL High 70-105 [facility] Comment on above: Order Comment: Waive d Testing in the ED is performed under the ED CLIA certificate #[id number]. Result Comment: mhil [email or web address] Performed By: #### L [id number] ####[facility] ([facility])[address] [place] [address] Glucose [Mass/Vol] 212 mg/dL High 70-105 [facility] Comment on above: Order Comment: Waive d Testing in the ED is performed under the ED CLIA certificate #[id number]. Result Comment: [email or web address] Performed By: #### L [id number] ####[facility] (BEAKER)[address] [place] [address] Glucose [Mass/Vol] 167 mg/dL High 70-105 [facility] Comment on above: Order Comment: Waive d Testing in the ED is performed under the ED CLIA certificate #[id number]. Result Comment: [email or web address] [email or web address] Performed By: #### L [id number] ####[facility] (BEAKER)[address] [place] [address] 30on 08-30-2024 30 Normal [facility] BASIC METABOLIC PANELon 08-21 Anion gap [Moles/Vol] 10 mmol/L Normal 7-20 [facility] Comment on above: Performed By: #### L [id number] ####[facility] (BEAKER)[address] [place] [address] Calcium [Mass/Vol] 10.3 mg/dL Normal 8.6-10.3 [facility] Comment on above: Performed By: #### L [id number] ####[facility] (BEAKER)[address] [place] [address] Chloride [Moles/Vol] 94 mmol/L Low 98-107 [facility] Comment on above: Performed By: #### L [id number] ####[facility] (BEAKER)[address] [place] [address] CO2 [Moles/Vol] 34 mmol/L High 21-31 [facility] Comment on above: Performed By: #### L [id number] ####[facility] (BEAKER)[address] [place] [address] Creatinine [Mass/Vol] 0.98 mg/dL Normal 0.70-1.30 [facility] Comment on above: Performed By: #### L [id number] ####[facility] ([facility]AKER)[address] [place] [address] GLOMERULAR FILTRATION RATE ML/MIN/1.73 SQ M.PREDICTED 85.6 mL/min/1.73m*2 Normal >60.0 [facility] Comment on above: Result Comment: [facility]???s estimated glomerular filtration rate (eGFR) will no longer include consideration of race in its calculation. The National Kidney Foundation???s eGFR Task Force developed new recommendations for the estimation of the glomerular filtration rate in the [place] They recommend immediate implementation of the new equation refit without the race variable in all laboratories because the calculation does not include race. In addition to not including race in the calculation and reporting, it included diversity in its development, and has acceptable performance characteristics and potential consequences that do not disproportionately affect any one group of individuals. Performed By: #### L [id number] ####[facility] ([facility])[address] [facility] [place] [address] Glucose [Mass/Vol] 184 mg/dL High 70-100 [facility] Comment on above: Performed By: #### L [id number] ####[facility] ([facility])[address] [facility] [place] [address] Potassium [Moles/Vol] 4.1 mmol/L Normal 3.5-5.1 [facility] Comment on above: Performed By: #### L [id number] ####[facility] ([facility])[address] [facility] [place] [address] Sodium [Moles/Vol] 134 mmol/L Low 136-145 [facility] Comment on above: Performed By: #### L [id number] ####[facility] ([facility])[address] [place] [address] Urea nitrogen [Mass/Vol] 27 mg/dL High 7-25 [facility] Comment on above: Performed By: #### L [id number] ####[facility] ([facility])[address] [facility] [place] [address] UREA NITROGEN/CREATININE (MASS RATIO) IN SER/PLAS 27.6 Normal [facility] Comment on above: Performed By: #### L [id number] ####[facility] ([facility])[address] [place] [address] CBC WITH AUTO DIFFERENTIALon 08-30-2024 Basophils (Bld) [#/Vol] 0.09 10*3/uL Normal 0.00-0.20 [facility] Comment on above: Performed By: #### L [id number] ####[facility] (BEAKER)[address] [place], [place] [address] Basophils/100 WBC (Bld) 1.0 % Normal 0.0-1.0 [facility] Comment on above: Performed By: #### L [id number] ####[facility] (BEAKER)[address] [place], [place] [address] Eosinophils (Bld) [#/Vol] 0.54 10*3/uL High 0.00-0.50 [facility] Comment on above: Performed By: #### L [id number] ####[facility] (BEAKER)[address] [place] [address] Eosinophils/100 WBC (Bld) 5.9 % Normal 0.0-6.0 [facility] Comment on above: Performed By: #### L [id number] ####[facility] (BEAKER)[address] [place] [address] Erythrocyte distribution width (RBC) [Ratio] 14.9 % Normal 11.5-15.0 [facility] Comment on above: Performed By: #### L [id number] ####[facility] (BE[facility]ER)[address] [place] [address] ERYTHROCYTE MEAN CORPUSCULAR HEMOGLOBIN CONCENTRATION (G/DL) BY AUTOMATED 31.0 g/dL Low 32.0-35.0 [facility] Comment on above: Performed By: #### L [id number] ####[facility] (BEAKER)[address] [place] [address] Hematocrit (Bld) [Volume fraction] 50.9 % Normal 39.0-55.0 [facility] Comment on above: Performed By: #### L [id number] ####[facility] (BEAKER)[address] [place] [address] Hemoglobin (Bld) [Mass/Vol] 15.8 g/dL Normal 13.0-17.0 [facility] Comment on above: Performed By: #### L [id number] ####[facility] (BEAKER)[address] [place] [address] Immature granulocytes (Bld) [#/Vol] 0.06 10*3/uL Normal 0.00-0.20 [facility] Comment on above: Performed By: #### L [id number] ####[facility] (BEAKER)[address] [place] [address] Immature granulocytes/100 WBC (Bld) 0.7 % Normal 0.0-1.0 [facility] Comment on above: Performed By: #### L [id number] ####[facility] (BEAKER)[address] [place] [address] Lymphocytes (Bld) [#/Vol] 1.65 10*3/uL Normal 1.20-4.00 [facility] Comment on above: Performed By: #### L [id number] ####[facility] (BEAKER)[address] [place] [address] Lymphocytes/100 WBC (Bld) 17.9 % Low 20.0-45.0 [facility] Comment on above: Performed By: #### L [id number] ####[facility] (BEAKER)[address] [place] [address] MCH (RBC) [Entitic mass] 29.2 pg Normal 27.0-33.0 [facility] Comment on above: Performed By: #### L [id number] ####[facility] (BEAKER)[address] [place] [address] MCV (RBC) [Entitic vol] 93.9 fL Normal 82.0-98.0 [facility] Comment on above: Performed By: #### L [id number] ####[facility] (BEAKER)[address] [place] [address] Monocytes (Bld) [#/Vol] 1.05 10*3/uL High 0.10-1.00 [facility] Comment on above: Performed By: #### L [id number] ####[facility] ([facility])[address] [place] [address] Monocytes/100 WBC (Bld) 11.4 % Normal 5.0-12.0 [facility] Comment on above: Performed By: #### L [id number] ####[facility] ([facility])[address] [place] [address] Neutrophils (Bld) [#/Vol] 5.82 10*3/uL Normal 1.60-7.60 [facility] Comment on above: Performed By: #### L [id number] ####[facility] ([facility])[address] [place] [address] Neutrophils/100 WBC (Bld) 63.1 % Normal 40.0-72.0 [facility] Comment on above: Performed By: #### L [id number] ####[facility] ([facility])[address] [place] [address] NRBC (PER 100 WBCS) BY AUTOMATED COUNT 0.0 % Normal 0 [facility] Comment on above: Performed By: #### L [id number] ####[facility] ([facility])[address] [place] [address] PLATELETS (10*3/UL) IN BLOOD AUTOMATED COUNT 298 10*3/uL Normal 150-400 [facility] Comment on above: Performed By: #### L [id number] ####[facility] [place] [address] RBC (Bld) [#/Vol] 5.42 10*6/uL Normal 4.20-5.70 [facility] Comment on above: Performed By: #### L [id number] ####[facility] (BEAKER)[address] [place] [address] WBC (Bld) [#/Vol] 9.21 10*3/uL Normal 4.00-10.60 [facility] Comment on above: Performed By: #### L [id number] ####[facility] ([facility])[address] [place] [address] CONSULTon 08-30-2024 CONSULT Normal [facility] MAGNESIUMon 08-30-2024 Magnesium [Mass/Vol] 1.7 mg/dL Low 1.9-2.7 [facility] Comment on above: Performed By: #### L [id number] ####[facility] ([facility])[address] [place] [address] NURSNOTEon 08-30-2024 NURSNOTE [facility] POCT GLUCOSE METER UNSOLICIT ED RESULTSon 08-30-2024 Glucose [Mass/Vol] 294 mg/dL High 70-105 [facility] Comment on above: Order Comment: Waive d Testing in the ED is performed under the ED CLIA certificate #[id number]. Result Comment: [email or web address] [id number] Value Noted Performed By: #### L [id number] ####[facility] ([facility])[address] [place] [address] Glucose [Mass/Vol] 162 mg/dL High 70-105 [facility] Comment on above: Order Comment: Waive d Testing in the ED is performed under the ED CLIA certificate #[id number]. Result Comment: abee rbo Performed By: #### L [id number] ####[facility] ([facility])[address] [place] [address] Glucose [Mass/Vol] 193 mg/dL High 70-105 [facility] Comment on above: Order Comment: Waive d Testing in the ED is performed under the ED CLIA certificate #[id number]. Result Comment: abee rbo Performed By: #### L [id number] ####[facility] ([facility])[address] [place] [address] Glucose [Mass/Vol] 235 mg/dL High 70-105 [facility] Comment on above: Order Comment: Waive d Testing in the ED is performed under the ED CLIA certificate #[id number]. Result Comment: [email or web address] [email or web address] Performed By: #### L [id number] ####[facility] (BEAKER)[address] [place] [address] Glucose [Mass/Vol] 209 mg/dL High 70-105 [facility] Comment on above: Order Comment: Waive d Testing in the ED is performed under the ED CLIA certificate #[id number]. Result Comment: [email or web address] [email or web address] Performed By: #### L [id number] ####[facility] (BEAKER)[address] [place] [address] BASIC METABOLIC PANELon 02-0 Anion gap [Moles/Vol] 7 mmol/L Normal 7-20 [facility] Comment on above: Performed By: #### L [id number] ####[facility] (BEAKER)[address] [place] [address] Calcium [Mass/Vol] 10.5 mg/dL High 8.6-10.3 [facility] Comment on above: Performed By: #### L [id number] ####[facility] (BEAKER)[address] [place] [address] Chloride [Moles/Vol] 93 mmol/L Low 98-107 [facility] Comment on above: Performed By: #### L [id number] ####[facility] (BEAKER)[address] [place] [address] CO2 [Moles/Vol] 38 mmol/L High 21-31 [facility] Comment on above: Performed By: #### L [id number] ####[facility] ([facility]ER)[address] [place] [address] Creatinine [Mass/Vol] 0.96 mg/dL Normal 0.70-1.30 [facility] Comment on above: Performed By: #### L [id number] ####[facility] ([facility]ER)[address] [place] [address] GLOMERULAR FILTRATION RATE ML/MIN/1.73 SQ M.PREDICTED 87.7 mL/min/1.73m*2 Normal >60.0 [facility] Comment on above: Result Comment: [facility]???s estimated glomerular filtration rate (eGFR) will no longer include consideration of race in its calculation. The National Kidney Foundation???s eGFR Task Force developed new recommendations for the estimation of the glomerular filtration rate in the [place] They recommend immediate implementation of the new equation refit without the race variable in all laboratories because the calculation does not include race. In addition to not including race in the calculation and reporting, it included diversity in its development, and has acceptable performance characteristics and potential consequences that do not disproportionately affect any one group of individuals. Performed By: #### L [id number] ####[facility] ([facility])[address] [place] [address] Glucose [Mass/Vol] 182 mg/dL High 70-100 [facility] Comment on above: Performed By: #### L [id number] ####[facility] ([facility])[address] [place] [address] Potassium [Moles/Vol] 4.1 mmol/L Normal 3.5-5.1 [facility] Comment on above: Performed By: #### L [id number] ####[facility] ([facility])[address] [place] [address] Sodium [Moles/Vol] 134 mmol/L Low 136-145 [facility] Comment on above: Performed By: #### L [id number] ####[facility] ([facility])[address] [place] [address] Urea nitrogen [Mass/Vol] 23 mg/dL Normal 7-25 [facility] Comment on above: Performed By: #### L [id number] ####[facility] ([facility])[address] [place] [address] UREA NITROGEN/CREATININE (MASS RATIO) IN SER/PLAS 24.0 Normal [facility] Comment on above: Performed By: #### L [id number] ####[facility] ([facility])[address] [place] [address] CBC WITH AUTO DIFFERENTIALon 08-29-2024 Basophils (Bld) [#/Vol] 0.09 10*3/uL Normal 0.00-0.20 [facility] Comment on above: Performed By: #### L [id number] ####[facility] (BEAKER)[address] [place] [address] Basophils/100 WBC (Bld) 1.0 % Normal 0.0-1.0 [facility] Comment on above: Performed By: #### L [id number] ####[facility] (BEAKER)[address] [place] [address] Eosinophils (Bld) [#/Vol] 0.48 10*3/uL Normal 0.00-0.50 [facility] Comment on above: Performed By: #### L [id number] ####[facility] (BEAKER)[address] [place] [address] Eosinophils/100 WBC (Bld) 5.3 % Normal 0.0-6.0 [facility] Comment on above: Performed By: #### L [id number] ####[facility] (BEAKER)[address] [place] [address] Erythrocyte distribution width (RBC) [Ratio] 15.0 % Normal 11.5-15.0 [facility] Comment on above: Performed By: #### L [id number] ####[facility] ([facility]ER)[address] [place] [address] ERYTHROCYTE MEAN CORPUSCULAR HEMOGLOBIN CONCENTRATION (G/DL) BY AUTOMATED 30.5 g/dL Low 32.0-35.0 [facility] Comment on above: Performed By: #### L [id number] ####[facility] (BEAKER)[address] [place] [address] Hematocrit (Bld) [Volume fraction] 51.2 % Normal 39.0-55.0 [facility] Comment on above: Performed By: #### L [id number] ####[facility] (BEAKER)[address] [place] [address] Hemoglobin (Bld) [Mass/Vol] 15.6 g/dL Normal 13.0-17.0 [facility] Comment on above: Performed By: #### L [id number] ####[facility] (BEAKER)[address] [place] [address] Immature granulocytes (Bld) [#/Vol] 0.07 10*3/uL Normal 0.00-0.20 [facility] Comment on above: Performed By: #### L [id number] ####[facility] (BEAKER)[address] [place] [address] Immature granulocytes/100 WBC (Bld) 0.8 % Normal 0.0-1.0 [facility] Comment on above: Performed By: #### L [id number] ####[facility] (BEAKER)[address] [place] [address] Lymphocytes (Bld) [#/Vol] 1.41 10*3/uL Normal 1.20-4.00 [facility] Comment on above: Performed By: #### L [id number] ####[facility] (BEAKER)[address] [place] [address] Lymphocytes/100 WBC (Bld) 15.7 % Low 20.0-45.0 [facility] Comment on above: Performed By: #### L [id number] ####[facility] (BEAKER)[address] [place] [address] MCH (RBC) [Entitic mass] 29.0 pg Normal 27.0-33.0 [facility] Comment on above: Performed By: #### L [id number] ####[facility] (BEAKER)[address] [place] [address] MCV (RBC) [Entitic vol] 95.2 fL Normal 82.0-98.0 [facility] Comment on above: Performed By: #### L [id number] ####[facility] (BE[facility]ER)[address] [place] [address] Monocytes (Bld) [#/Vol] 0.82 10*3/uL Normal 0.10-1.00 [facility] Comment on above: Performed By: #### L [id number] ####[facility] ([facility])[address] [place] [address] Monocytes/100 WBC (Bld) 9.1 % Normal 5.0-12.0 [facility] Comment on above: Performed By: #### L [id number] ####[facility] ([facility])[address] [place] [address] Neutrophils (Bld) [#/Vol] 6.11 10*3/uL Normal 1.60-7.60 [facility] Comment on above: Performed By: #### L [id number] ####[facility] ([facility])[address] [place] [address] Neutrophils/100 WBC (Bld) 68.1 % Normal 40.0-72.0 [facility] Comment on above: Performed By: #### L [id number] ####[facility] ([facility])[address] [place] [address] NRBC (PER 100 WBCS) BY AUTOMATED COUNT 0.0 % Normal 0 [facility] Comment on above: Performed By: #### L [id number] ####[facility] ([facility])[address] [place] [address] PLATELETS (10*3/UL) IN BLOOD AUTOMATED COUNT 262 10*3/uL Normal 150-400 [facility] Comment on above: Performed By: #### L [id number] ####[facility] ([facility])[address] [place] [address] RBC (Bld) [#/Vol] 5.38 10*6/uL Normal 4.20-5.70 [facility] Comment on above: Performed By: #### L [id number] ####[facility] ([facility])[address] [place] [address] WBC (Bld) [#/Vol] 8.98 10*3/uL Normal 4.00-10.60 [facility] Comment on above: Performed By: #### L [id number] ####[facility] ([facility])[address] [place] [address] MAGNESIUMon 08-29-2024 Magnesium [Mass/Vol] 1.7 mg/dL Low 1.9-2.7 [facility] Comment on above: Performed By: #### L [id number] ####[facility] ([facility])[address] [place] [address] POCT GLUCOSE METER UNSOLICIT ED RESULTSon 08-29-2024 Glucose [Mass/Vol] 284 mg/dL High 70-105 [facility] Comment on above: Order Comment: Waive d Testing in the ED is performed under the ED CLIA certificate #[id number]. Result Comment: sbel air Performed By: #### L [id number] ####[facility] ([facility])[address] [place] [address] Glucose [Mass/Vol] 259 mg/dL High 70-105 [facility] Comment on above: Order Comment: Waive d Testing in the ED is performed under the ED CLIA certificate #[id number]. Result Comment: aall [email or web address] Performed By: #### L [id number] ####[facility] ([facility])[address] [place] [address] Glucose [Mass/Vol] 301 mg/dL High 70-105 [facility] Comment on above: Order Comment: Waive d Testing in the ED is performed under the ED CLIA certificate #[id number]. Result Comment: aall [email or web address] Performed By: #### L [id number] ####[facility] ([facility])[address] [place] [address] Glucose [Mass/Vol] 166 mg/dL High 70-105 [facility] Comment on above: Order Comment: Waive d Testing in the ED is performed under the ED CLIA certificate #[id number]. Result Comment: aall [email or web address] Performed By: #### L [id number] ####[facility] ([facility])[address] [place] [address] BASIC METABOLIC PANELon 02-0 8-2025 Anion gap [Moles/Vol] 8 mmol/L Normal 7-20 [facility] Comment on above: Performed By: #### L [id number] ####[facility] [place] [address] Calcium [Mass/Vol] 9.8 mg/dL Normal 8.6-10.3 [facility] Comment on above: Performed By: #### L [id number] ####[facility] [place] [address] Chloride [Moles/Vol] 96 mmol/L Low 98-107 [facility] Comment on above: Performed By: #### L [id number] ####[facility] [place] [address] CO2 [Moles/Vol] 37 mmol/L High 21-31 [facility] Comment on above: Performed By: #### L [id number] ####[facility] [place] [address] Creatinine [Mass/Vol] 0.82 mg/dL Normal 0.70-1.30 [facility] Comment on above: Performed By: #### L [id number] ####[facility] [place] [address] GLOMERULAR FILTRATION RATE ML/MIN/1.73 SQ M.PREDICTED 97.5 mL/min/1.73m*2 Normal >60.0 [facility] Comment on above: Result Comment: [facility]???s estimated glomerular filtration rate (eGFR) will no longer include consideration of race in its calculation. The [employer]???s eGFR Task Force developed new recommendations for the estimation of the glomerular filtration rate in the [place] They recommend immediate implementation of the new equation refit without the race variable in all laboratories because the calculation does not include race. In addition to not including race in the calculation and reporting, it included diversity in its development, and has acceptable performance characteristics and potential consequences that do not disproportionately affect any one group of individuals. Performed By: #### L [id number] ####[facility] [place] [address] Glucose [Mass/Vol] 183 mg/dL High 70-100 [facility] Comment on above: Performed By: #### L [id number] ####[facility] ([facility] [place] [address] Potassium [Moles/Vol] 3.7 mmol/L Normal 3.5-5.1 [facility] Comment on above: Performed By: #### L [id number] ####[facility] ([facility] [place] [address] Sodium [Moles/Vol] 137 mmol/L Normal 136-145 [facility] Comment on above: Performed By: #### L [id number] ####[facility] ([facility])[address] [place] [address] Urea nitrogen [Mass/Vol] 17 mg/dL Normal 7-25 [facility] Comment on above: Performed By: #### L [id number] ####[facility] ([facility])[address] [place] [address] UREA NITROGEN/CREATININE (MASS RATIO) IN SER/PLAS 20.7 Normal [facility] Comment on above: Performed By: #### L [id number] ####[facility] ([facility] [place] [address] CBC WITH AUTO DIFFERENTIALon 08-28-2024 Basophils (Bld) [#/Vol] 0.09 10*3/uL Normal 0.00-0.20 [facility] Comment on above: Performed By: #### L [id number] ####[facility] ([facility] [place] [address] Basophils/100 WBC (Bld) 0.9 % Normal 0.0-1.0 [facility] Comment on above: Performed By: #### L [id number] ####[facility] ([facility] [place] [address] Eosinophils (Bld) [#/Vol] 0.40 10*3/uL Normal 0.00-0.50 [facility] Comment on above: Performed By: #### L [id number] ####[facility] (BEAKER)[address] [place] [address] Eosinophils/100 WBC (Bld) 4.2 % Normal 0.0-6.0 [facility] Comment on above: Performed By: #### L [id number] ####[facility] ([facility])[address] [place] [address] Erythrocyte distribution width (RBC) [Ratio] 14.8 % Normal 11.5-15.0 [facility] Comment on above: Performed By: #### L [id number] ####[facility] ([facility])[address] [place] [address] ERYTHROCYTE MEAN CORPUSCULAR HEMOGLOBIN CONCENTRATION (G/DL) BY AUTOMATED 30.3 g/dL Low 32.0-35.0 [facility] Comment on above: Performed By: #### L [id number] ####[facility] ([facility])[address] [place] [address] Hematocrit (Bld) [Volume fraction] 50.9 % Normal 39.0-55.0 [facility] Comment on above: Performed By: #### L [id number] ####[facility] ([facility])[address] [place] [address] Hemoglobin (Bld) [Mass/Vol] 15.4 g/dL Normal 13.0-17.0 [facility] Comment on above: Performed By: #### L [id number] ####[facility] ([facility])[address] [place] [address] Immature granulocytes (Bld) [#/Vol] 0.06 10*3/uL Normal 0.00-0.20 [facility] Comment on above: Performed By: #### L [id number] ####[facility] ([facility])[address] [place] [address] Immature granulocytes/100 WBC (Bld) 0.6 % Normal 0.0-1.0 [facility] Comment on above: Performed By: #### L [id number] ####[facility] ([facility])[address] [place] [address] Lymphocytes (Bld) [#/Vol] 1.68 10*3/uL Normal 1.20-4.00 [facility] Comment on above: Performed By: #### L [id number] ####[facility] ([facility])[address] [place] [address] Lymphocytes/100 WBC (Bld) 17.6 % Low 20.0-45.0 [facility] Comment on above: Performed By: #### L [id number] ####[facility] ([facility])[address] [place] [address] MCH (RBC) [Entitic mass] 29.2 pg Normal 27.0-33.0 [facility] Comment on above: Performed By: #### L [id number] ####[facility] ([facility])[address] [place] [address] MCV (RBC) [Entitic vol] 96.6 fL Normal 82.0-98.0 [facility] Comment on above: Performed By: #### L [id number] ####[facility] ([facility])[address] [place] [address] Monocytes (Bld) [#/Vol] 0.99 10*3/uL Normal 0.10-1.00 [facility] Comment on above: Performed By: #### L [id number] ####[facility] ([facility])[address] [place] [address] Monocytes/100 WBC (Bld) 10.4 % Normal 5.0-12.0 [facility] Comment on above: Performed By: #### L [id number] ####[facility] ([facility])[address] [place] [address] Neutrophils (Bld) [#/Vol] 6.33 10*3/uL Normal 1.60-7.60 [facility] Comment on above: Performed By: #### L [id number] ####[facility] ([facility])[address] [place] [address] Neutrophils/100 WBC (Bld) 66.3 % Normal 40.0-72.0 [facility] Comment on above: Performed By: #### L [id number] ####[facility] ([facility])[address] [place] [address] NRBC (PER 100 WBCS) BY AUTOMATED COUNT 0.0 % Normal 0 [facility] Comment on above: Performed By: #### L [id number] ####[facility] ([facility])[address] [place] [address] PLATELETS (10*3/UL) IN BLOOD AUTOMATED COUNT 252 10*3/uL Normal 150-400 [facility] Comment on above: Performed By: #### L [id number] ####[facility] ([facility])[address] [place] [address] RBC (Bld) [#/Vol] 5.27 10*6/uL Normal 4.20-5.70 [facility] Comment on above: Performed By: #### L [id number] ####[facility] ([facility])[address] [address] WBC (Bld) [#/Vol] 9.55 10*3/uL Normal 4.00-10.60 [facility] Comment on above: Performed By: #### L [id number] ####[facility] ([facility])[address] [place] [address] MAGNESIUMon 08-28-2024 Magnesium [Mass/Vol] 1.8 mg/dL Low 1.9-2.7 [facility] Comment on above: Performed By: #### L [id number] ####[facility] ([facility])[address] [address] NURSNOTEon 08-28-2024 NURSNOTE Normal [facility] POCT GLUCOSE METER UNSOLICIT ED RESULTSon 08-28-2024 Glucose [Mass/Vol] 258 mg/dL High 70-105 [facility] Comment on above: Order Comment: Waive d Testing in the ED is performed under the ED CLIA certificate #[id number]. Result Comment: amcn [email or web address] Performed By: #### L [id number] ####[facility] ([facility])[address] [place] [address] Glucose [Mass/Vol] 177 mg/dL High 70-105 [facility] Comment on above: Order Comment: Waive d Testing in the ED is performed under the ED CLIA certificate #[id number]. Result Comment: aall en70 Performed By: #### L [id number] ####[facility] ([facility])[address] [place] [address] Glucose [Mass/Vol] 242 mg/dL High 70-105 [facility] Comment on above: Order Comment: Waive d Testing in the ED is performed under the ED CLIA certificate #[id number]. Result Comment: aall [id number] Performed By: #### L [id number] ####[facility] ([facility] [place] [address] Glucose [Mass/Vol] 200 mg/dL High 70-105 [facility] Comment on above: Order Comment: Waive d Testing in the ED is performed under the ED CLIA certificate #[id number]. Result Comment: aall en70 Performed By: #### L [id number] ####[facility] (BEAKER)[address] [place] [address] 30on 08-27-2024 30 Normal [facility] BASIC METABOLIC PANELon -0 Anion gap [Moles/Vol] 6 mmol/L Low 7-20 [facility] Comment on above: Performed By: #### L [id number] ####[facility] (BEAKER)[address] [place] [address] Calcium [Mass/Vol] 9.8 mg/dL Normal 8.6-10.3 [facility] Comment on above: Performed By: #### L [id number] ####[facility] ([facility] [place] [address] Chloride [Moles/Vol] 97 mmol/L Low 98-107 [facility] Comment on above: Performed By: #### L [id number] ####[facility] ([facility])[address] [place] [address] CO2 [Moles/Vol] 41 mmol/L Critically high 21-31 [facility] Comment on above: Performed By: #### L [id number] ####[facility] ([facility])[address] [place] [address] Creatinine [Mass/Vol] 0.81 mg/dL Normal 0.70-1.30 [facility] Comment on above: Performed By: #### L [id number] ####[facility] ([facility])[address] [place] [address] GLOMERULAR FILTRATION RATE ML/MIN/1.73 SQ M.PREDICTED 97.8 mL/min/1.73m*2 Normal >60.0 [facility] Comment on above: Result Comment: [facility]???s estimated glomerular filtration rate (eGFR) will no longer include consideration of race in its calculation. The National Kid[employer]???s eGFR Task Force developed new recommendations for the estimation of the glomerular filtration rate in the [place] They recommend immediate implementation of the new equation refit without the race variable in all laboratories because the calculation does not include race. In addition to not including race in the calculation and reporting, it included diversity in its development, and has acceptable performance characteristics and potential consequences that do not disproportionately affect any one group of individuals. Performed By: #### L [id number] ####[facility] ([facility] [place] [address] Glucose [Mass/Vol] 187 mg/dL High 70-100 [facility] Comment on above: Performed By: #### L [id number] ####[facility] ([facility] [place] [address] Potassium [Moles/Vol] 3.5 mmol/L Normal 3.5-5.1 [facility] Comment on above: Performed By: #### L [id number] ####[facility] ([facility])[address] [place] [place] [address] Sodium [Moles/Vol] 140 mmol/L Normal 136-145 [facility] Comment on above: Performed By: #### L [id number] ####[facility] ([facility])[address] [place] [address] Urea nitrogen [Mass/Vol] 16 mg/dL Normal 7-25 [facility] Comment on above: Performed By: #### L [id number] ####[facility] ([facility])[address] [place] [address] UREA NITROGEN/CREATININE (MASS RATIO) IN SER/PLAS 19.8 Normal [facility] Comment on above: Performed By: #### L [id number] ####[facility] ([facility])[address] [place] [address] CBC WITH AUTO DIFFERENTIALon 08-27-2024 Basophils (Bld) [#/Vol] 0.06 10*3/uL Normal 0.00-0.20 [facility] Comment on above: Performed By: #### L [id number] ####[facility] ([facility])[address] [place] [address] Basophils/100 WBC (Bld) 0.7 % Normal 0.0-1.0 [facility] Comment on above: Performed By: #### L [id number] ####[facility] ([facility] [place] [address] Eosinophils (Bld) [#/Vol] 0.38 10*3/uL Normal 0.00-0.50 [facility] Comment on above: Performed By: #### L [id number] ####[facility] ([facility] [place] [address] Eosinophils/100 WBC (Bld) 4.7 % Normal 0.0-6.0 [facility] Comment on above: Performed By: #### L [id number] ####[facility] (BEAKER)[address] [place] [address] Erythrocyte distribution width (RBC) [Ratio] 14.6 % Normal 11.5-15.0 [facility] Comment on above: Performed By: #### L [id number] ####[facility] ([facility] [place] [address] ERYTHROCYTE MEAN CORPUSCULAR HEMOGLOBIN CONCENTRATION (G/DL) BY AUTOMATED 29.7 g/dL Low 32.0-35.0 [facility] Comment on above: Performed By: #### L [id number] ####[facility] ([facility])[address] [place] [address] Hematocrit (Bld) [Volume fraction] 49.5 % Normal 39.0-55.0 [facility] Comment on above: Performed By: #### L [id number] ####[facility] ([facility])[address] [place] [address] Hemoglobin (Bld) [Mass/Vol] 14.7 g/dL Normal 13.0-17.0 [facility] Comment on above: Performed By: #### L [id number] ####[facility] ([facility])[address] [place] [address] Immature granulocytes (Bld) [#/Vol] 0.04 10*3/uL Normal 0.00-0.20 [facility] Comment on above: Performed By: #### L [id number] ####[facility] ([facility] [place] [address] Immature granulocytes/100 WBC (Bld) 0.5 % Normal 0.0-1.0 [facility] Comment on above: Performed By: #### L [id number] ####[facility] (BEAKER)[address] [place] [address] Lymphocytes (Bld) [#/Vol] 1.42 10*3/uL Normal 1.20-4.00 [facility] Comment on above: Performed By: #### L [id number] ####[facility] ([facility] [place] [address] Lymphocytes/100 WBC (Bld) 17.7 % Low 20.0-45.0 [facility] Comment on above: Performed By: #### L [id number] ####[facility] ([facility] [place] [address] MCH (RBC) [Entitic mass] 28.9 pg Normal 27.0-33.0 [facility] Comment on above: Performed By: #### L [id number] ####[facility] ([facility] [place] [address] MCV (RBC) [Entitic vol] 97.4 fL Normal 82.0-98.0 [facility] Comment on above: Performed By: #### L [id number] ####[facility] ([facility])[address] [place] [address] Monocytes (Bld) [#/Vol] 0.92 10*3/uL Normal 0.10-1.00 [facility] Comment on above: Performed By: #### L [id number] ####[facility] ([facility])[address] [place] [address] Monocytes/100 WBC (Bld) 11.5 % Normal 5.0-12.0 [facility] Comment on above: Performed By: #### L [id number] ####[facility] ([facility])[address] [place] [address] Neutrophils (Bld) [#/Vol] 5.19 10*3/uL Normal 1.60-7.60 [facility] Comment on above: Performed By: #### L [id number] ####[facility] ([facility] [place] [address] Neutrophils/100 WBC (Bld) 64.9 % Normal 40.0-72.0 [facility] Comment on above: Performed By: #### L [id number] ####[facility] [place] [address] NRBC (PER 100 WBCS) BY AUTOMATED COUNT 0.0 % Normal 0 [facility] Comment on above: Performed By: #### L [id number] ####[facility] ([facility])[address] [place] [address] PLATELETS (10*3/UL) IN BLOOD AUTOMATED COUNT 209 10*3/uL Normal 150-400 [facility] Comment on above: Performed By: #### L [id number] ####[facility] ([facility])[address] [place] [address] RBC (Bld) [#/Vol] 5.08 10*6/uL Normal 4.20-5.70 [facility] Comment on above: Performed By: #### L [id number] ####[facility] ([facility])[address] [place] [address] WBC (Bld) [#/Vol] 8.01 10*3/uL Normal 4.00-10.60 [facility] Comment on above: Performed By: #### L [id number] ####[facility] ([facility])[address] [place] [address] MAGNESIUMon 08-27-2024 Magnesium [Mass/Vol] 1.6 mg/dL Low 1.9-2.7 [facility] Comment on above: Performed By: #### L [id number] ####[facility] ([facility])[address] [place] [address] POCT GLUCOSE METER UNSOLICIT ED RESULTSon 08-27-2024 Glucose [Mass/Vol] 144 mg/dL High 70-105 [facility] Comment on above: Order Comment: Waive d Testing in the ED is performed under the ED CLIA certificate #[id number]. Result Comment: droc kol Performed By: #### L [id number] ####[facility] ([facility])[address] [place] [address] Glucose [Mass/Vol] 204 mg/dL High 70-105 [facility] Comment on above: Order Comment: Waive d Testing in the ED is performed under the ED CLIA certificate #[id number]. Result Comment: ndub [email or web address] Performed By: #### L [id number] ####[facility] (BEAKER)[address] [place] [address] Glucose [Mass/Vol] 230 mg/dL High 70-105 [facility] Comment on above: Order Comment: Waive d Testing in the ED is performed under the ED CLIA certificate #[id number]. Result Comment: jspr [email or web address] Performed By: #### L [id number] ####[facility] ([facility] [place] [address] Glucose [Mass/Vol] 174 mg/dL High 70-105 [facility] Comment on above: Order Comment: Waive d Testing in the ED is performed under the ED CLIA certificate #[id number]. Result Comment: ndub ois3 Performed By: #### L [id number] ####[facility] ([facility])[address] [place] [address] BASIC METABOLIC PANELon 02-0 Anion gap [Moles/Vol] 9 mmol/L Normal 7-20 [facility] Comment on above: Performed By: #### L [id number] ####[facility] ([facility])[address] [place] [address] Calcium [Mass/Vol] 9.4 mg/dL Normal 8.6-10.3 [facility] Comment on above: Performed By: #### L [id number] ####[facility] ([facility] [place] [address] Chloride [Moles/Vol] 100 mmol/L Normal 98-107 [facility] Comment on above: Performed By: #### L [id number] ####[facility] (BEAKER)[address] [place] [address] CO2 [Moles/Vol] 36 mmol/L High 21-31 [facility] Comment on above: Performed By: #### L [id number] ####[facility] (BEAKER)[address] [place] [address] Creatinine [Mass/Vol] 0.78 mg/dL Normal 0.70-1.30 [facility] Comment on above: Performed By: #### L [id number] ####[facility] ([facility])[address] [place] [address] GLOMERULAR FILTRATION RATE ML/MIN/1.73 SQ M.PREDICTED 99.0 mL/min/1.73m*2 Normal >60.0 [facility] Comment on above: Result Comment: [facility]???s estimated glomerular filtration rate (eGFR) will no longer include consideration of race in its calculation. The National Kidney Foundation???s eGFR Task Force developed new recommendations for the estimation of the glomerular filtration rate in the [place] They recommend immediate implementation of the new equation refit without the race variable in all laboratories because the calculation does not include race. In addition to not including race in the calculation and reporting, it included diversity in its development, and has acceptable performance characteristics and potential consequences that do not disproportionately affect any one group of individuals. Performed By: #### L [id number] ####[facility] ([facility])[address] [place] [address] Glucose [Mass/Vol] 156 mg/dL High 70-100 [facility] Comment on above: Performed By: #### L [id number] ####[facility] ([facility])[address] [place] [address] Potassium [Moles/Vol] 3.5 mmol/L Normal 3.5-5.1 [facility] Comment on above: Performed By: #### L [id number] ####[facility] ([facility])[address] [place] [address] Sodium [Moles/Vol] 141 mmol/L Normal 136-145 [facility] Comment on above: Performed By: #### L [id number] ####[facility] ([facility])[address] [place] [address] Urea nitrogen [Mass/Vol] 17 mg/dL Normal 7-25 [facility] Comment on above: Performed By: #### L [id number] ####[facility] [place] [address] UREA NITROGEN/CREATININE (MASS RATIO) IN SER/PLAS 21.8 Normal [facility] Comment on above: Performed By: #### L [id number] ####[facility] [place] [address] CBC WITH AUTO DIFFERENTIALon 08-26-2024 Basophils (Bld) [#/Vol] 0.06 10*3/uL Normal 0.00-0.20 [facility] Comment on above: Performed By: #### L [id number] ####[facility] ([facility])[address] [place] [address] Basophils/100 WBC (Bld) 0.8 % Normal 0.0-1.0 [facility] Comment on above: Performed By: #### L [id number] ####[facility] ([facility])[address] [place] [address] Eosinophils (Bld) [#/Vol] 0.39 10*3/uL Normal 0.00-0.50 [facility] Comment on above: Performed By: #### L [id number] ####[facility] ([facility])[address] [place] [address] Eosinophils/100 WBC (Bld) 5.4 % Normal 0.0-6.0 [facility] Comment on above: Performed By: #### L [id number] ####[facility] ([facility])[address] [place] [address] Erythrocyte distribution width (RBC) [Ratio] 14.7 % Normal 11.5-15.0 [facility] Comment on above: Performed By: #### L [id number] ####[facility] [place] [address] ERYTHROCYTE MEAN CORPUSCULAR HEMOGLOBIN CONCENTRATION (G/DL) BY AUTOMATED 30.4 g/dL Low 32.0-35.0 [facility] Comment on above: Performed By: #### L [id number] ####[facility] (BEAKER)[address] [place] [address] Hematocrit (Bld) [Volume fraction] 49.0 % Normal 39.0-55.0 [facility] Comment on above: Performed By: #### L [id number] ####[facility] (BEAKER)[address] [place] [address] Hemoglobin (Bld) [Mass/Vol] 14.9 g/dL Normal 13.0-17.0 [facility] Comment on above: Performed By: #### L [id number] ####[facility] (BE[facility]ER)[address] [place] [address] Immature granulocytes (Bld) [#/Vol] 0.03 10*3/uL Normal 0.00-0.20 [facility] Comment on above: Performed By: #### L [id number] ####[facility] (BE[facility]ER)[address] [place] [place] [address] Immature granulocytes/100 WBC (Bld) 0.4 % Normal 0.0-1.0 [facility] Comment on above: Performed By: #### L [id number] ####[facility] (BEAKER)[address] [place] [address] Lymphocytes (Bld) [#/Vol] 1.21 10*3/uL Normal 1.20-4.00 [facility] Comment on above: Performed By: #### L [id number] ####[facility] (BEAKER)[address] [place] [address] Lymphocytes/100 WBC (Bld) 16.7 % Low 20.0-45.0 [facility] Comment on above: Performed By: #### L [id number] ####[facility] (BEAKER)[address] [place] [address] MCH (RBC) [Entitic mass] 29.2 pg Normal 27.0-33.0 [facility] Comment on above: Performed By: #### L [id number] ####[facility] (BEAKER)[address] [place] [address] MCV (RBC) [Entitic vol] 96.1 fL Normal 82.0-98.0 [facility] Comment on above: Performed By: #### L [id number] ####[facility] (BEAKER)[address] [place] [address] Monocytes (Bld) [#/Vol] 0.86 10*3/uL Normal 0.10-1.00 [facility] Comment on above: Performed By: #### L [id number] ####[facility] (BEAKER)[address] [place] [address] Monocytes/100 WBC (Bld) 11.9 % Normal 5.0-12.0 [facility] Comment on above: Performed By: #### L [id number] ####[facility] (BEAKER)[address] [place] [address] Neutrophils (Bld) [#/Vol] 4.70 10*3/uL Normal 1.60-7.60 [facility] Comment on above: Performed By: #### L [id number] ####[facility] [place] [address] Neutrophils/100 WBC (Bld) 64.8 % Normal 40.0-72.0 [facility] Comment on above: Performed By: #### L [id number] ####[facility] (BEAKER)[address] [place] [address] NRBC (PER 100 WBCS) BY AUTOMATED COUNT 0.0 % Normal 0 [facility] Comment on above: Performed By: #### L [id number] ####[facility] (BEAKER)[address] [place] [address] PLATELETS (10*3/UL) IN BLOOD AUTOMATED COUNT 208 10*3/uL Normal 150-400 [facility] Comment on above: Performed By: #### L [id number] ####[facility] (BEAKER)[address] [place] [address] RBC (Bld) [#/Vol] 5.10 10*6/uL Normal 4.20-5.70 [facility] Comment on above: Performed By: #### L [id number] ####[facility] ([facility])[address] [place] [address] WBC (Bld) [#/Vol] 7.25 10*3/uL Normal 4.00-10.60 [facility] Comment on above: Performed By: #### L [id number] ####[facility] ([facility])[address] [place] [address] MAGNESIUMon 08-26-2024 Magnesium [Mass/Vol] 1.8 mg/dL Low 1.9-2.7 [facility] Comment on above: Performed By: #### L [id number] ####[facility] ([facility])[address] [place] [address] POCT GLUCOSE METER UNSOLICIT ED RESULTSon 08-26-2024 Glucose [Mass/Vol] 246 mg/dL High 70-105 [facility] Comment on above: Order Comment: Waive d Testing in the ED is performed under the ED CLIA certificate #[id number]. Result Comment: [email or web address] Performed By: #### L [id number] ####[facility] ([facility])[address] [place] [address] Glucose [Mass/Vol] 204 mg/dL High 70-105 [facility] Comment on above: Order Comment: Waive d Testing in the ED is performed under the ED CLIA certificate #[id number]. Result Comment: [email or web address] Performed By: #### L [id number] ####[facility] ([facility])[address] [place] [address] Glucose [Mass/Vol] 219 mg/dL High 70-105 [facility] Comment on above: Order Comment: Waive d Testing in the ED is performed under the ED CLIA certificate #[id number]. Result Comment: [email or web address] Performed By: #### L [id number] ####[facility] ([facility])[address] [place] [address] Glucose [Mass/Vol] 163 mg/dL High 70-105 [facility] Comment on above: Order Comment: Waive d Testing in the ED is performed under the ED CLIA certificate #[id number]. Result Comment: [email or web address] Performed By: #### L [id number] ####[facility] ([facility] [place] [address] 30on 08-25-2024 30 Normal [facility] BASIC METABOLIC PANELon Anion gap [Moles/Vol] 10 mmol/L Normal 7-20 [facility] Comment on above: Performed By: #### L [id number] ####[facility] ([facility])[address] [place] [address] Calcium [Mass/Vol] 9.5 mg/dL Normal 8.6-10.3 [facility] Comment on above: Performed By: #### L [id number] ####[facility] ([facility])[address] [place] [address] Chloride [Moles/Vol] 97 mmol/L Low 98-107 [facility] Comment on above: Performed By: #### L [id number] ####[facility] ([facility])[address] [place] [address] CO2 [Moles/Vol] 34 mmol/L High 21-31 [facility] Comment on above: Performed By: #### L [id number] ####[facility] ([facility] [place] [address] Creatinine [Mass/Vol] 0.87 mg/dL Normal 0.70-1.30 [facility] Comment on above: Performed By: #### L [id number] ####[facility] ([facility])[address] [place] [address] GLOMERULAR FILTRATION RATE ML/MIN/1.73 SQ M.PREDICTED 95.8 mL/min/1.73m*2 Normal >60.0 [facility] Comment on above: Result Comment: [facility]???s estimated glomerular filtration rate (eGFR) will no longer include consideration of race in its calculation. The National Kidney Foundation???s eGFR Task Force developed new recommendations for the estimation of the glomerular filtration rate in the [place] They recommend immediate implementation of the new equation refit without the race variable in all laboratories because the calculation does not include race. In addition to not including race in the calculation and reporting, it included diversity in its development, and has acceptable performance characteristics and potential consequences that do not disproportionately affect any one group of individuals. Performed By: #### L [id number] ####[facility] ([facility])[address] [place] [address] Glucose [Mass/Vol] 178 mg/dL High 70-100 [facility] Comment on above: Performed By: #### L [id number] ####[facility] ([facility])[address] [place] [address] Potassium [Moles/Vol] 3.5 mmol/L Normal 3.5-5.1 [facility] Comment on above: Performed By: #### L [id number] ####[facility] ([facility])[address] [place] [address] Sodium [Moles/Vol] 137 mmol/L Normal 136-145 [facility] Comment on above: Performed By: #### L [id number] ####[facility] ([facility])[address] [place] [address] Urea nitrogen [Mass/Vol] 20 mg/dL Normal 7-25 [facility] Comment on above: Performed By: #### L [id number] ####[facility] ([facility])[address] [place] [address] UREA NITROGEN/CREATININE (MASS RATIO) IN SER/PLAS 23.0 Normal [facility] Comment on above: Performed By: #### L [id number] ####[facility] ([facility])[address] [place] [address] CBC WITH AUTO DIFFERENTIALon 08-25-2024 Basophils (Bld) [#/Vol] 0.04 10*3/uL Normal 0.00-0.20 [facility] Comment on above: Performed By: #### L [id number] ####[facility] (BEAKER)[address] [place] [address] Basophils/100 WBC (Bld) 0.6 % Normal 0.0-1.0 [facility] Comment on above: Performed By: #### L [id number] ####[facility] (BEAKER)[address] [place] [address] Eosinophils (Bld) [#/Vol] 0.22 10*3/uL Normal 0.00-0.50 [facility] Comment on above: Performed By: #### L [id number] ####[facility] (BEAKER)[address] [place] [address] Eosinophils/100 WBC (Bld) 3.1 % Normal 0.0-6.0 [facility] Comment on above: Performed By: #### L [id number] ####[facility] (BEAKER)[address] [place] [address] Erythrocyte distribution width (RBC) [Ratio] 14.6 % Normal 11.5-15.0 [facility] Comment on above: Performed By: #### L [id number] ####[facility] (BEAKER)[address] [place] [address] ERYTHROCYTE MEAN CORPUSCULAR HEMOGLOBIN CONCENTRATION (G/DL) BY AUTOMATED 30.6 g/dL Low 32.0-35.0 [facility] Comment on above: Performed By: #### L [id number] ####[facility] (BEAKER)[address] [place] [address] Hematocrit (Bld) [Volume fraction] 49.4 % Normal 39.0-55.0 [facility] Comment on above: Performed By: #### L [id number] ####[facility] (BEAKER)[address] [place] [address] Hemoglobin (Bld) [Mass/Vol] 15.1 g/dL Normal 13.0-17.0 [facility] Comment on above: Performed By: #### L [id number] ####[facility] (BEAKER)[address] [place] [address] Immature granulocytes (Bld) [#/Vol] 0.04 10*3/uL Normal 0.00-0.20 [facility] Comment on above: Performed By: #### L [id number] ####[facility] (BEAKER)[address] [place] [address] Immature granulocytes/100 WBC (Bld) 0.6 % Normal 0.0-1.0 [facility] Comment on above: Performed By: #### L [id number] ####[facility] (BEAKER)[address] [place] [address] Lymphocytes (Bld) [#/Vol] 1.08 10*3/uL Low 1.20-4.00 [facility] Comment on above: Performed By: #### L [id number] ####[facility] (BEAKER)[address] [place] [address] Lymphocytes/100 WBC (Bld) 15.1 % Low 20.0-45.0 [facility] Comment on above: Performed By: #### L [id number] ####[facility] (BEAKER)[address] [place] [address] MCH (RBC) [Entitic mass] 28.9 pg Normal 27.0-33.0 [facility] Comment on above: Performed By: #### L [id number] ####[facility] (BEAKER)[address] [place] [address] MCV (RBC) [Entitic vol] 94.6 fL Normal 82.0-98.0 [facility] Comment on above: Performed By: #### L [id number] ####[facility] (BEAKER)[address] [place] [address] Monocytes (Bld) [#/Vol] 0.94 10*3/uL Normal 0.10-1.00 [facility] Comment on above: Performed By: #### L [id number] ####[facility] (BEAKER)[address] [place] [address] Monocytes/100 WBC (Bld) 13.1 % High 5.0-12.0 [facility] Comment on above: Performed By: #### L [id number] ####[facility] ([facility] [place] [address] Neutrophils (Bld) [#/Vol] 4.85 10*3/uL Normal 1.60-7.60 [facility] Comment on above: Performed By: #### L [id number] ####[facility] ([facility])[address] [place] [address] Neutrophils/100 WBC (Bld) 67.5 % Normal 40.0-72.0 [facility] Comment on above: Performed By: #### L [id number] ####[facility] ([facility])[address] [place] [address] NRBC (PER 100 WBCS) BY AUTOMATED COUNT 0.0 % Normal 0 [facility] Comment on above: Performed By: #### L [id number] ####[facility] ([facility])[address] [place] [address] PLATELETS (10*3/UL) IN BLOOD AUTOMATED COUNT 200 10*3/uL Normal 150-400 [facility] Comment on above: Performed By: #### L [id number] ####[facility] ([facility])[address] [place] [address] RBC (Bld) [#/Vol] 5.22 10*6/uL Normal 4.20-5.70 [facility] Comment on above: Performed By: #### L [id number] ####[facility] (BEAKER)[address] [place], [place] [address] WBC (Bld) [#/Vol] 7.17 10*3/uL Normal 4.00-10.60 [facility] Comment on above: Performed By: #### L [id number] ####[facility] (BEAKER)[address] [place] [address] MAGNESIUMon 02-05-2025 Magnesium [Mass/Vol] 1.6 mg/dL Low 1.9-2.7 [facility] Comment on above: Performed By: #### L [id number] ####[facility] ([facility])[address] [place] [address] POCT GLUCOSE METER UNSOLICIT ED RESULTSon 08-25-2024 Glucose [Mass/Vol] 154 mg/dL High 70-105 [facility] Comment on above: Order Comment: Waive d Testing in the ED is performed under the ED CLIA certificate #[id number]. Result Comment: [email or web address] Performed By: #### L [id number] ####[facility] ([facility])[address] [place] [address] Glucose [Mass/Vol] 196 mg/dL High 70-105 [facility] Comment on above: Order Comment: Waive d Testing in the ED is performed under the ED CLIA certificate #[id number]. Result Comment: [email or web address] Performed By: #### L [id number] ####[facility] ([facility])[address] [place] [address] Glucose [Mass/Vol] 313 mg/dL High 70-105 [facility] Comment on above: Order Comment: Waive d Testing in the ED is performed under the ED CLIA certificate #[id number]. Result Comment: [email or web address] [email or web address] Performed By: #### L [id number] ####[facility] ([facility])[address] [place] [address] Glucose [Mass/Vol] 164 mg/dL High 70-105 [facility] Comment on above: Order Comment: Waive d Testing in the ED is performed under the ED CLIA certificate #[id number]. Result Comment: [email or web address] Performed By: #### L [id number] ####[facility] ([facility])[address] [place] [address] 30on 08-24-2024 30 Normal [facility] ANTI-XA (HEPARIN LEVEL)on HEPARIN UNFRACTIONATED (U/ML) IN PPP BY CHROMOGENIC METHOD 0.21 IU/mL Low 0.3-0.7 [facility] Comment on above: Result Comment: Tatyana roxaban and Apixaban will interfere with the anti Xa assay used to monitor UFH and LMWH. Performed By: #### L [id number] ####[facility] ([facility])[address] [place] [address] B-TYPE NATRIURETIC PEPTIDEon 08-24-2024 Natriuretic peptide B (Bld) [Mass/Vol] 143 pg/mL High 0-100 [facility] Comment on above: Performed By: #### L [id number] ####[facility] ([facility])[address] [place] [address] BASIC METABOLIC PANELon Anion gap [Moles/Vol] 11 mmol/L Normal 7-20 [facility] Comment on above: Performed By: #### L [id number] ####[facility] ([facility])[address] [place] [address] Calcium [Mass/Vol] 9.7 mg/dL Normal 8.6-10.3 [facility] Comment on above: Performed By: #### L [id number] ####[facility] ([facility])[address] [place] [address] Chloride [Moles/Vol] 98 mmol/L Normal 98-107 [facility] Comment on above: Performed By: #### L [id number] ####[facility] ([facility] [place] [address] CO2 [Moles/Vol] 33 mmol/L High 21-31 [facility] Comment on above: Performed By: #### L [id number] ####[facility] ([facility] [place] [address] Creatinine [Mass/Vol] 0.93 mg/dL Normal 0.70-1.30 [facility] Comment on above: Performed By: #### L [id number] ####[facility] ([facility] [place] [address] GLOMERULAR FILTRATION RATE ML/MIN/1.73 SQ M.PREDICTED 91.1 mL/min/1.73m*2 Normal >60.0 [facility] Comment on above: Result Comment: [facility]???s estimated glomerular filtration rate (eGFR) will no longer include consideration of race in its calculation. The National Kidney Foundation???s eGFR Task Force developed new recommendations for the estimation of the glomerular filtration rate in the [place] They recommend immediate implementation of the new equation refit without the race variable in all laboratories because the calculation does not include race. In addition to not including race in the calculation and reporting, it included diversity in its development, and has acceptable performance characteristics and potential consequences that do not disproportionately affect any one group of individuals. Performed By: #### L [id number] ####[facility] ([facility])[address] [place] [address] Glucose [Mass/Vol] 166 mg/dL High 70-100 [facility] Comment on above: Performed By: #### L [id number] ####[facility] ([facility])[address] [place] [address] Potassium [Moles/Vol] 3.8 mmol/L Normal 3.5-5.1 [facility] Comment on above: Performed By: #### L [id number] ####[facility] ([facility])[address] [place] [address] Sodium [Moles/Vol] 138 mmol/L Normal 136-145 [facility] Comment on above: Performed By: #### L [id number] ####[facility] (BEAKER)[address] [place] [address] Urea nitrogen [Mass/Vol] 23 mg/dL Normal 7-25 [facility] Comment on above: Performed By: #### L [id number] ####[facility] ([facility])[address] [place] [address] UREA NITROGEN/CREATININE (MASS RATIO) IN SER/PLAS 24.7 Normal [facility] Comment on above: Performed By: #### L [id number] ####[facility] ([facility] [place] [address] Anion gap [Moles/Vol] 10 mmol/L Normal 7-20 [facility] Comment on above: Performed By: #### L [id number] ####[facility] (BEAKER)[address] [place] [address] Calcium [Mass/Vol] 9.4 mg/dL Normal 8.6-10.3 [facility] Comment on above: Performed By: #### L [id number] ####[facility] (BEAKER)[address] [place] [address] Chloride [Moles/Vol] 98 mmol/L Normal 98-107 [facility] Comment on above: Performed By: #### L [id number] ####[facility] (BEAKER)[address] [place] [address] CO2 [Moles/Vol] 33 mmol/L High 21-31 [facility] Comment on above: Performed By: #### L [id number] ####[facility] ([facility] [place] [address] Creatinine [Mass/Vol] 0.88 mg/dL Normal 0.70-1.30 [facility] Comment on above: Performed By: #### L [id number] ####[facility] ([facility] [place] [address] GLOMERULAR FILTRATION RATE ML/MIN/1.73 SQ M.PREDICTED 95.4 mL/min/1.73m*2 Normal >60.0 [facility] Comment on above: Result Comment: [facility]???s estimated glomerular filtration rate (eGFR) will no longer include consideration of race in its calculation. The National Kidney Foundation???s eGFR Task Force developed new recommendations for the estimation of the glomerular filtration rate in the [place] They recommend immediate implementation of the new equation refit without the race variable in all laboratories because the calculation does not include race. In addition to not including race in the calculation and reporting, it included diversity in its development, and has acceptable performance characteristics and potential consequences that do not disproportionately affect any one group of individuals. Performed By: #### L [id number] ####[facility] ([facility])[address] [place] [address] Glucose [Mass/Vol] 132 mg/dL High 70-100 [facility] Comment on above: Performed By: #### L [id number] ####[facility] ([facility])[address] [place] [address] Potassium [Moles/Vol] 2.9 mmol/L Invalid Interpretation Code 3.5-5.1 [facility] Comment on above: Performed By: #### L [id number] ####[facility] ([facility])[address] [place] [address] Sodium [Moles/Vol] 138 mmol/L Normal 136-145 [facility] Comment on above: Performed By: #### L [id number] ####[facility] ([facility])[address] [place] [address] Urea nitrogen [Mass/Vol] 24 mg/dL Normal 7-25 [facility] Comment on above: Performed By: #### L [id number] ####[facility] ([facility])[address] [place] [address] UREA NITROGEN/CREATININE (MASS RATIO) IN SER/PLAS 27.3 Normal [facility] Comment on above: Performed By: #### L [id number] ####[facility] ([facility])[address] [place] [address] CBC WITH AUTO DIFFERENTIALon 08-24-2024 Basophils (Bld) [#/Vol] 0.06 10*3/uL Normal 0.00-0.20 [facility] Comment on above: Performed By: #### L [id number] ####[facility] ([facility])[address] [place] [address] Basophils/100 WBC (Bld) 0.8 % Normal 0.0-1.0 [facility] Comment on above: Performed By: #### L [id number] ####[facility] ([facility])[address] [place] [address] Eosinophils (Bld) [#/Vol] 0.46 10*3/uL Normal 0.00-0.50 [facility] Comment on above: Performed By: #### L [id number] ####[facility] (BEAKER)[address] [place] [address] Eosinophils/100 WBC (Bld) 5.9 % Normal 0.0-6.0 [facility] Comment on above: Performed By: #### L [id number] ####[facility] (BEAKER)[address] [place] [address] Erythrocyte distribution width (RBC) [Ratio] 14.7 % Normal 11.5-15.0 [facility] Comment on above: Performed By: #### L [id number] ####[facility] (BEAKER)[address] [place] [address] ERYTHROCYTE MEAN CORPUSCULAR HEMOGLOBIN CONCENTRATION (G/DL) BY AUTOMATED 31.3 g/dL Low 32.0-35.0 [facility] Comment on above: Performed By: #### L [id number] ####[facility] (BEAKER)[address] [place] [address] Hematocrit (Bld) [Volume fraction] 50.8 % Normal 39.0-55.0 [facility] Comment on above: Performed By: #### L [id number] ####[facility] (BEAKER)[address] [place] [address] Hemoglobin (Bld) [Mass/Vol] 15.9 g/dL Normal 13.0-17.0 [facility] Comment on above: Performed By: #### L [id number] ####[facility] (BEAKER)[address] [place] [address] Immature granulocytes (Bld) [#/Vol] 0.04 10*3/uL Normal 0.00-0.20 [facility] Comment on above: Performed By: #### L [id number] ####[facility] (BEAKER)[address] [place] [address] Immature granulocytes/100 WBC (Bld) 0.5 % Normal 0.0-1.0 [facility] Comment on above: Performed By: #### L [id number] ####[facility] ([facility])[address] [place] [address] Lymphocytes (Bld) [#/Vol] 1.23 10*3/uL Normal 1.20-4.00 [facility] Comment on above: Performed By: #### L [id number] ####[facility] ([facility])[address] [place] [address] Lymphocytes/100 WBC (Bld) 15.8 % Low 20.0-45.0 [facility] Comment on above: Performed By: #### L [id number] ####[facility] ([facility])[address] [place] [address] MCH (RBC) [Entitic mass] 29.1 pg Normal 27.0-33.0 [facility] Comment on above: Performed By: #### L [id number] ####[facility] [facility] ([facility])[address] [place] [address] MCV (RBC) [Entitic vol] 92.9 fL Normal 82.0-98.0 [facility] Comment on above: Performed By: #### L [id number] ####[facility] [place] [address] Monocytes (Bld) [#/Vol] 0.96 10*3/uL Normal 0.10-1.00 [facility] Comment on above: Performed By: #### L [id number] ####[facility] ([facility] [place] [address] Monocytes/100 WBC (Bld) 12.4 % High 5.0-12.0 [facility] Comment on above: Performed By: #### L [id number] ####[facility] (BEAKER)[address] [place] [address] Neutrophils (Bld) [#/Vol] 5.02 10*3/uL Normal 1.60-7.60 [facility] Comment on above: Performed By: #### L [id number] ####[facility] [place] [address] Neutrophils/100 WBC (Bld) 64.6 % Normal 40.0-72.0 [facility] Comment on above: Performed By: #### L [id number] ####[facility] ([facility])[address] [place] [address] NRBC (PER 100 WBCS) BY AUTOMATED COUNT 0.0 % Normal 0 [facility] Comment on above: Performed By: #### L [id number] ####[facility] ([facility])[address] [place] [address] PLATELETS (10*3/UL) IN BLOOD AUTOMATED COUNT 194 10*3/uL Normal 150-400 [facility] Comment on above: Performed By: #### L [id number] ####[facility] ([facility])[address] [place] [address] RBC (Bld) [#/Vol] 5.47 10*6/uL Normal 4.20-5.70 [facility] Comment on above: Performed By: #### L [id number] ####[facility] ([facility])[address] [place] [address] WBC (Bld) [#/Vol] 7.77 10*3/uL Normal 4.00-10.60 [facility] Comment on above: Performed By: #### L [id number] ####[facility] ([facility])[address] [place] [address] CONSULTon 08-24-2024 CONSULT Normal [facility] CT HEAD WO IV CONTRASTon CT HEAD WO IV CONTRAST Invalid Interpretation Code [facility] CTA CHEST W IV CONTRASTon CTA CHEST W IV CONTRAST Normal [facility] MAGNESIUMon 08-24-2024 Magnesium [Mass/Vol] 1.7 mg/dL Low 1.9-2.7 [facility] Comment on above: Performed By: #### L [id number] ####[facility] ([facility])[address] [place] [address] Magnesium [Mass/Vol] 1.4 mg/dL Low 1.9-2.7 [facility] Comment on above: Performed By: #### L [id number] ####[facility] ([facility])[address] [place] [address] NURSNOTEon 08-24-2024 NURSNOTE Normal [facility] NURSNOTE Normal [facility] PHOSPHORUSon 08-24-2024 Magnesium [Mass/Vol] 3.4 mg/dL Normal 2.5-5.0 [facility] Comment on above: Performed By: #### L [id number] ####[facility] ([facility])[address] [place] [address] POCT GLUCOSE METER UNSOLICIT ED RESULTSon 08-24-2024 Glucose [Mass/Vol] 182 mg/dL High 70-105 [facility] Comment on above: Order Comment: Waive d Testing in the ED is performed under the ED CLIA certificate #[id number]. Result Comment: droc kol Performed By: #### L [id number] ####[facility] ([facility])[address] [place] [address] Glucose [Mass/Vol] 166 mg/dL High 70-105 [facility] Comment on above: Order Comment: Waive d Testing in the ED is performed under the ED CLIA certificate #[id number]. Result Comment: sbel cad Performed By: #### L [id number] ####[facility] ([facility])[address] [place] [address] Glucose [Mass/Vol] 150 mg/dL High 70-105 [facility] Comment on above: Order Comment: Waive d Testing in the ED is performed under the ED CLIA certificate #[id number]. Result Comment: besc obe Performed By: #### L [id number] ####[facility] ([facility])[address] [place] [address] Glucose [Mass/Vol] 136 mg/dL High 70-105 [facility] Comment on above: Order Comment: Waive d Testing in the ED is performed under the ED CLIA certificate #[id number]. Result Comment: swey [id number] Value Noted Performed By: #### L [id number] ####[facility] ([facility])[address] [place] [address] BASIC METABOLIC PANELon 02-0 Anion gap [Moles/Vol] 10 mmol/L Normal 7-20 [facility] Comment on above: Performed By: #### L [id number] ####[facility] ([facility])[address] [place] [address] Calcium [Mass/Vol] 9.8 mg/dL Normal 8.6-10.3 [facility] Comment on above: Performed By: #### L [id number] ####[facility] ([facility])[address] [place] [address] Chloride [Moles/Vol] 99 mmol/L Normal 98-107 [facility] Comment on above: Performed By: #### L [id number] ####[facility] ([facility])[address] [place] [address] CO2 [Moles/Vol] 33 mmol/L High 21-31 [facility] Comment on above: Performed By: #### L [id number] ####[facility] ([facility])[address] [place] [address] Creatinine [Mass/Vol] 0.94 mg/dL Normal 0.70-1.30 [facility] Comment on above: Performed By: #### L [id number] ####[facility] ([facility])[address] [place] [address] GLOMERULAR FILTRATION RATE ML/MIN/1.73 SQ M.PREDICTED 90.0 mL/min/1.73m*2 Normal >60.0 [facility] Comment on above: Result Comment: [facility]???s estimated glomerular filtration rate (eGFR) will no longer include consideration of race in its calculation. The National Kidney Foundation???s eGFR Task Force developed new recommendations for the estimation of the glomerular filtration rate in the [place] They recommend immediate implementation of the new equation refit without the race variable in all laboratories because the calculation does not include race. In addition to not including race in the calculation and reporting, it included diversity in its development, and has acceptable performance characteristics and potential consequences that do not disproportionately affect any one group of individuals. Performed By: #### L [id number] ####[facility] ([facility])[address] [place] [address] Glucose [Mass/Vol] 274 mg/dL High 70-100 [facility] Comment on above: Performed By: #### L [id number] ####[facility] ([facility])[address] [place] [address] Potassium [Moles/Vol] 3.8 mmol/L Normal 3.5-5.1 [facility] Comment on above: Performed By: #### L [id number] ####[facility] ([facility])[address] [place] [address] Sodium [Moles/Vol] 138 mmol/L Normal 136-145 [facility] Comment on above: Performed By: #### L [id number] ####[facility] ([facility])[address] [place] [address] Urea nitrogen [Mass/Vol] 31 mg/dL High 7-25 [facility] Comment on above: Performed By: #### L [id number] ####[facility] ([facility])[address] [place] [address] UREA NITROGEN/CREATININE (MASS RATIO) IN SER/PLAS 33.0 Normal [facility] Comment on above: Performed By: #### L [id number] ####[facility] ([facility])[address] [place] [address] CBC WITH AUTO DIFFERENTIALon 08-23-2024 Basophils (Bld) [#/Vol] 0.06 10*3/uL Normal 0.00-0.20 [facility] Comment on above: Performed By: #### L [id number] ####[facility] ([facility])[address] [place] [address] Basophils/100 WBC (Bld) 0.9 % Normal 0.0-1.0 [facility] Comment on above: Performed By: #### L [id number] ####[facility] ([facility])[address] [place] [address] Eosinophils (Bld) [#/Vol] 0.34 10*3/uL Normal 0.00-0.50 [facility] Comment on above: Performed By: #### L [id number] ####[facility] ([facility])[address] [place] [address] Eosinophils/100 WBC (Bld) 4.8 % Normal 0.0-6.0 [facility] Comment on above: Performed By: #### L [id number] ####[facility] ([facility])[address] [place] [address] Erythrocyte distribution width (RBC) [Ratio] 14.7 % Normal 11.5-15.0 [facility] Comment on above: Performed By: #### L [id number] ####[facility] ([facility])[address] [place] [address] ERYTHROCYTE MEAN CORPUSCULAR HEMOGLOBIN CONCENTRATION (G/DL) BY AUTOMATED 31.8 g/dL Low 32.0-35.0 [facility] Comment on above: Performed By: #### L [id number] ####[facility] ([facility])[address] [place] [address] Hematocrit (Bld) [Volume fraction] 52.5 % Normal 39.0-55.0 [facility] Comment on above: Performed By: #### L [id number] ####[facility] ([facility])[address] [place] [address] Hemoglobin (Bld) [Mass/Vol] 16.7 g/dL Normal 13.0-17.0 [facility] Comment on above: Performed By: #### L [id number] ####[facility] ([facility])[address] [place] [address] Immature granulocytes (Bld) [#/Vol] 0.05 10*3/uL Normal 0.00-0.20 [facility] Comment on above: Performed By: #### L [id number] ####[facility] ([facility])[address] [place] [address] Immature granulocytes/100 WBC (Bld) 0.7 % Normal 0.0-1.0 [facility] Comment on above: Performed By: #### L [id number] ####[facility] ([facility])[address] [place] [address] Lymphocytes (Bld) [#/Vol] 1.15 10*3/uL Low 1.20-4.00 [facility] Comment on above: Performed By: #### L [id number] ####[facility] ([facility])[address] [place] [address] Lymphocytes/100 WBC (Bld) 16.4 % Low 20.0-45.0 [facility] Comment on above: Performed By: #### L [id number] ####[facility] ([facility])[address] [place] [address] MCH (RBC) [Entitic mass] 29.0 pg Normal 27.0-33.0 [facility] Comment on above: Performed By: #### L [id number] ####[facility] ([facility])[address] [place] [address] MCV (RBC) [Entitic vol] 91.1 fL Normal 82.0-98.0 [facility] Comment on above: Performed By: #### L [id number] ####[facility] ([facility])[address] [place] [address] Monocytes (Bld) [#/Vol] 0.85 10*3/uL Normal 0.10-1.00 [facility] Comment on above: Performed By: #### L [id number] ####[facility] ([facility])[address] [place] [address] Monocytes/100 WBC (Bld) 12.1 % High 5.0-12.0 [facility] Comment on above: Performed By: #### L [id number] ####[facility] ([facility])[address] [place] [address] Neutrophils (Bld) [#/Vol] 4.58 10*3/uL Normal 1.60-7.60 [facility] Comment on above: Performed By: #### L [id number] ####[facility] ([facility])[address] [place] [address] Neutrophils/100 WBC (Bld) 65.1 % Normal 40.0-72.0 [facility] Comment on above: Performed By: #### L [id number] ####[facility] ([facility])[address] [place] [address] NRBC (PER 100 WBCS) BY AUTOMATED COUNT 0.0 % Normal 0 [facility] Comment on above: Performed By: #### L [id number] ####[facility] ([facility])[address] [place] [address] PLATELETS (10*3/UL) IN BLOOD AUTOMATED COUNT 190 10*3/uL Normal 150-400 [facility] Comment on above: Performed By: #### L [id number] ####[facility] ([facility])[address] [place] [address] RBC (Bld) [#/Vol] 5.76 10*6/uL High 4.20-5.70 [facility] Comment on above: Performed By: #### L [id number] ####[facility] ([facility])[address] [place] [address] WBC (Bld) [#/Vol] 7.03 10*3/uL Normal 4.00-10.60 [facility] Comment on above: Performed By: #### L [id number] ####[facility] ([facility])[address] [place] [address] CONSULTon 08-23-2024 CONSULT Normal [facility] LIPID PANELon 08-23-2024 CHOL/HDL 7.8 mg/dL Normal [facility] Comment on above: Performed By: #### L [id number] ####[facility] ([facility])[address] [place] [address] Cholesterol [Mass/Vol] 195 mg/dL Normal 120-200 [facility] Comment on above: Performed By: #### L [id number] ####[facility] [place] [address] Magnesium [Mass/Vol] 177 mg/dL High 40-149 [facility] Comment on above: Result Comment: TRIG LYCERIDE REFERENCE RANGE:20 YEARS AND OLDER CARDIOVASCULAR RISKLESS THAN 150 mg/dL LOW [id number] TO 199 mg/dL BORDERLINE ESDS465 mg/dL AND GREATER HIGH RISK Performed By: #### L [id number] ####[facility] [place] [address] Magnesium [Mass/Vol] 135 mg/dL Normal 0-160 [facility] Comment on above: Performed By: #### L [id number] ####[facility] ([facility])[address] [place] [address] Magnesium [Mass/Vol] 25 mg/dL Normal 23-92 [facility] Comment on above: Performed By: #### L [id number] ####[facility] ([facility])[address] [place] [address] NON HDL CHOL. (LDL+VLDL) 170 Normal [facility] Comment on above: Performed By: #### L [id number] ####[facility] ([facility])[address] [place] [address] TOTAL VLDL-C 35 mg/dL Normal 0-40 [facility] Comment on above: Performed By: #### L [id number] ####[facility] ([facility])[address] [place] [address] POCT GLUCOSE METER UNSOLICIT ED RESULTSon 08-23-2024 Glucose [Mass/Vol] 169 mg/dL High 70-105 [facility] Comment on above: Order Comment: Waive d Testing in the ED is performed under the ED CLIA certificate #[id number]. Result Comment: enoch tti Performed By: #### L [id number] ####[facility] ([facility])[address] [place] [address] Glucose [Mass/Vol] 183 mg/dL High 70-105 [facility] Comment on above: Order Comment: Waive d Testing in the ED is performed under the ED CLIA certificate #[id number]. Result Comment: ezab ors2 Performed By: #### L [id number] ####[facility] ([facility])[address] [place] [address] Glucose [Mass/Vol] 283 mg/dL High 70-105 [facility] Comment on above: Order Comment: Waive d Testing in the ED is performed under the ED CLIA certificate #[id number]. Result Comment: ezab ors2 Performed By: #### L [id number] ####[facility] ([facility])[address] [place] [address] Glucose [Mass/Vol] 258 mg/dL High 70-105 [facility] Comment on above: Order Comment: Waive d Testing in the ED is performed under the ED CLIA certificate #[id number]. Result Comment: tful ks2 Performed By: #### L [id number] ####[facility] ([facility])[address] [place] [address] 30on 08-22-2024 30 Normal [facility] ANTI-XA (HEPARIN LEVEL)on HEPARIN UNFRACTIONATED (U/ML) IN PPP BY CHROMOGENIC METHOD 0.31 IU/mL Normal 0.3-0.7 [facility] Comment on above: Result Comment: Vassar roxaban and Apixaban will interfere with the anti Xa assay used to monitor UFH and LMWH. Performed By: #### L [id number] ####[facility] ([facility])[address] [place] [address] BASIC METABOLIC PANELon Anion gap [Moles/Vol] 10 mmol/L Normal 7-20 [facility] Comment on above: Performed By: #### L [id number] ####[facility] ([facility])[address] [place] [address] Calcium [Mass/Vol] 9.6 mg/dL Normal 8.6-10.3 [facility] Comment on above: Performed By: #### L [id number] ####[facility] ([facility])[address] [place] [address] Chloride [Moles/Vol] 102 mmol/L Normal 98-107 [facility] Comment on above: Performed By: #### L [id number] ####[facility] ([facility])[address] [place] [address] CO2 [Moles/Vol] 32 mmol/L High 21-31 [facility] Comment on above: Performed By: #### L [id number] ####[facility] ([facility])[address] [place] [address] Creatinine [Mass/Vol] 1.01 mg/dL Normal 0.70-1.30 [facility] Comment on above: Performed By: #### L [id number] ####[facility] ([facility])[address] [place] [address] GLOMERULAR FILTRATION RATE ML/MIN/1.73 SQ M.PREDICTED 82.5 mL/min/1.73m*2 Normal >60.0 [facility] Comment on above: Result Comment: [facility]???s estimated glomerular filtration rate (eGFR) will no longer include consideration of race in its calculation. The National Kidney Foundation???s eGFR Task Force developed new recommendations for the estimation of the glomerular filtration rate in the [place] They recommend immediate implementation of the new equation refit without the race variable in all laboratories because the calculation does not include race. In addition to not including race in the calculation and reporting, it included diversity in its development, and has acceptable performance characteristics and potential consequences that do not disproportionately affect any one group of individuals. Performed By: #### L [id number] ####[facility] [place] [address] Glucose [Mass/Vol] 263 mg/dL High 70-100 [facility] Comment on above: Performed By: #### L [id number] ####[facility] ([facility])[address] [place] [address] Potassium [Moles/Vol] 3.7 mmol/L Normal 3.5-5.1 [facility] Comment on above: Performed By: #### L [id number] ####[facility] ([facility])[address] [place] [address] Sodium [Moles/Vol] 140 mmol/L Normal 136-145 [facility] Comment on above: Performed By: #### L [id number] ####[facility] ([facility])[address] [place] [address] Urea nitrogen [Mass/Vol] 33 mg/dL High 7-25 [facility] Comment on above: Performed By: #### L [id number] ####[facility] ([facility])[address] [place] [address] UREA NITROGEN/CREATININE (MASS RATIO) IN SER/PLAS 32.7 Normal [facility] Comment on above: Performed By: #### L [id number] ####[facility] ([facility])[address] [place] [address] CBC WITH AUTO DIFFERENTIALon 08-22-2024 Basophils (Bld) [#/Vol] 0.05 10*3/uL Normal 0.00-0.20 [facility] Comment on above: Performed By: #### L [id number] ####[facility] ([facility])[address] [place] [address] Basophils/100 WBC (Bld) 0.5 % Normal 0.0-1.0 [facility] Comment on above: Performed By: #### L [id number] ####[facility] [place] [address] Eosinophils (Bld) [#/Vol] 0.36 10*3/uL Normal 0.00-0.50 [facility] Comment on above: Performed By: #### L [id number] ####[facility] ([facility])[address] [place] [address] Eosinophils/100 WBC (Bld) 3.9 % Normal 0.0-6.0 [facility] Comment on above: Performed By: #### L [id number] ####[facility] ([facility])[address] [place] [address] Erythrocyte distribution width (RBC) [Ratio] 14.7 % Normal 11.5-15.0 [facility] Comment on above: Performed By: #### L [id number] ####[facility] ([facility])[address] [place] [address] ERYTHROCYTE MEAN CORPUSCULAR HEMOGLOBIN CONCENTRATION (G/DL) BY AUTOMATED 30.8 g/dL Low 32.0-35.0 [facility] Comment on above: Performed By: #### L [id number] ####[facility] [place] [address] Hematocrit (Bld) [Volume fraction] 52.9 % Normal 39.0-55.0 [facility] Comment on above: Performed By: #### L [id number] ####[facility] [place] [address] Hemoglobin (Bld) [Mass/Vol] 16.3 g/dL Normal 13.0-17.0 [facility] Comment on above: Performed By: #### L [id number] ####[facility] [place] [address] Immature granulocytes (Bld) [#/Vol] 0.07 10*3/uL Normal 0.00-0.20 [facility] Comment on above: Performed By: #### L [id number] ####[facility] ([facility]ER)[address] [place] [address] Immature granulocytes/100 WBC (Bld) 0.7 % Normal 0.0-1.0 [facility] Comment on above: Performed By: #### L [id number] ####[facility] [place] [address] Lymphocytes (Bld) [#/Vol] 1.16 10*3/uL Low 1.20-4.00 [facility] Comment on above: Performed By: #### L [id number] ####[facility] ([facility])[address] [place] [address] Lymphocytes/100 WBC (Bld) 12.4 % Low 20.0-45.0 [facility] Comment on above: Performed By: #### L [id number] ####[facility] ([facility])[address] [place] [address] MCH (RBC) [Entitic mass] 28.8 pg Normal 27.0-33.0 [facility] Comment on above: Performed By: #### L [id number] ####[facility] ([facility])[address] [place] [address] MCV (RBC) [Entitic vol] 93.5 fL Normal 82.0-98.0 [facility] Comment on above: Performed By: #### L [id number] ####[facility] ([facility])[address] [place] [address] Monocytes (Bld) [#/Vol] 1.21 10*3/uL High 0.10-1.00 [facility] Comment on above: Performed By: #### L [id number] ####[facility] ([facility])[address] [place] [address] Monocytes/100 WBC (Bld) 12.9 % High 5.0-12.0 [facility] Comment on above: Performed By: #### L [id number] ####[facility] [place] [address] Neutrophils (Bld) [#/Vol] 6.50 10*3/uL Normal 1.60-7.60 [facility] Comment on above: Performed By: #### L [id number] ####[facility] [place] [address] Neutrophils/100 WBC (Bld) 69.6 % Normal 40.0-72.0 [facility] Comment on above: Performed By: #### L [id number] ####[facility] [place] [address] NRBC (PER 100 WBCS) BY AUTOMATED COUNT 0.0 % Normal 0 [facility] Comment on above: Performed By: #### L [id number] ####[facility] ([facility])[address] [place] [address] PLATELETS (10*3/UL) IN BLOOD AUTOMATED COUNT 187 10*3/uL Normal 150-400 [facility] Comment on above: Performed By: #### L [id number] ####[facility] ([facility])[address] [place] [address] RBC (Bld) [#/Vol] 5.66 10*6/uL Normal 4.20-5.70 [facility] Comment on above: Performed By: #### L [id number] ####[facility] ([facility])[address] [place] [address] WBC (Bld) [#/Vol] 9.35 10*3/uL Normal 4.00-10.60 [facility] Comment on above: Performed By: #### L [id number] ####[facility] ([facility])[address] [place] [address] POCT GLUCOSE METER UNSOLICIT ED RESULTSon 08-22-2024 Glucose [Mass/Vol] 256 mg/dL High 70-105 [facility] Comment on above: Order Comment: Waive d Testing in the ED is performed under the ED CLIA certificate #[id number]. Result Comment: ezab ors2 Performed By: #### L [id number] ####[facility] [place] [address] Glucose [Mass/Vol] 277 mg/dL High 70-105 [facility] Comment on above: Order Comment: Waive d Testing in the ED is performed under the ED CLIA certificate #[id number]. Result Comment: ezab ors2 Performed By: #### L [id number] ####[facility] (BEAKER)[address] [place] [address] ANTI-XA (HEPARIN LEVEL)on HEPARIN UNFRACTIONATED (U/ML) IN PPP BY CHROMOGENIC METHOD 0.30 IU/mL Normal 0.3-0.7 [facility] Comment on above: Result Comment: Tatyana roxaban and Apixaban will interfere with the anti Xa assay used to monitor UFH and LMWH. Performed By: #### L [id number] ####[facility] (BEAKER)[address] [place] [address] ARTERIAL BLOOD GAS WITH CO-O XIMETRYon 08-21-2024 Base excess Calc (Bld) [Moles/Vol] 6.7 mmol/L High -2.0-3.0 [facility] Comment on above: Performed By: #### L [id number] ####[facility] RESPIRAT[facility] [id number] [place] [address] [facility] CARBOXYHEMOGLOBIN/HEMO GLOBIN TOTAL % IN BLOOD 2.0 % Normal 0.0-3.0 [facility] Comment on above: Performed By: #### L [id number] ####[facility] RESPIRATORY [id number] [place] [address] [place] CO2 (Bld) [Partial pressure] 43 mm[Hg] Normal 35-48 [facility] Comment on above: Performed By: #### L [id number] ####[facility] RESPIRATORY [id number] [place] [address] [place] DEOXYGENATED HEMOGLOBIN IN BLOOD 4.9 % Normal 1-5 [facility] Comment on above: Performed By: #### L [id number] ####[facility] RESPIRATORY [id number] [place] [address] [place] FIO2 50 % Normal [facility] Comment on above: Performed By: #### L [id number] ####[facility] RESPIRATORY [id number] [place] [address] [facility] HCO3 (Bld) [Moles/Vol] 31.3 mmol/L High 21.0-28.0 [facility] Comment on above: Performed By: #### L [id number] ####[facility] RESPIRATORY [id number] [place] [address] [facility] Hemoglobin (Bld) [Mass/Vol] 16.5 g/dL Normal 11.7-17.4 [facility] Comment on above: Performed By: #### L [id number] ####[facility] RESPIRATORY [id number] [place] [address] [facility] METHEMOGLOBIN/100 IN BLOOD 0.7 % Normal 0.0-1.5 [facility] Comment on above: Performed By: #### L [id number] ####[facility] RESPIRATORY [id number] [place] [address] [facility] Oxygen (Bld) [Partial pressure] 68 mm[Hg] Low 83-100 [facility] Comment on above: Performed By: #### L [id number] ####[facility] RESPIRATORY [id number] [place] [address] [facility] OXYGEN SATURATION (%) IN ARTERIAL BLOOD 95.0 % Normal 94.0-98.0 [facility] Comment on above: Performed By: #### L [id number] ####[facility] RESPIRATORY [id number] [place] [address] [facility] OXYGENATED HEMOGLOBIN IN BLOOD 92.4 % Normal 90.0-95.0 [facility] Comment on above: Performed By: #### L [id number] ####[facility] RESPIRATORY [id number] [place] [address] [facility] pH (Bld) 7.47 [pH] High 7.35-7.45 [facility] Comment on above: Performed By: #### L [id number] ####[facility] RESPIRATORY [id number] [place] [address] [facility] SOURCE OF OXYGEN Bi-PAP Normal [facility] Comment on above: Performed By: #### L [id number] ####[facility] RESPIRATORY [id number] [place] [address] [place] Base excess Calc (Bld) [Moles/Vol] 5.1 mmol/L High -2.0-3.0 [facility] Comment on above: Performed By: #### L [id number] ####[facility] RESPIRATORY [id number] [place] [address] [place] CARBOXYHEMOGLOBIN/HEMO GLOBIN TOTAL % IN BLOOD 1.9 % Normal 0.0-3.0 [facility] Comment on above: Performed By: #### L [id number] ####[facility] RESPIRATORY [id number] [place] [address] [place] CO2 (Bld) [Partial pressure] 46 mm[Hg] Normal 35-48 [facility] Comment on above: Performed By: #### L [id number] ####[facility] RESPIRATORY [id number] [address] [place] [address] [facility] DEOXYGENATED HEMOGLOBIN IN BLOOD 15.8 % Critically high 1-5 [facility] Comment on above: Performed By: #### L [id number] ####[facility] RESPIRATORY [id number] [address] [place] [address] [place] HCO3 (Bld) [Moles/Vol] 30.5 mmol/L High 21.0-28.0 [facility] Comment on above: Performed By: #### L [id number] ####[facility] RESPIRATORY [id number] [place] [address] [place] Hemoglobin (Bld) [Mass/Vol] 16.4 g/dL Normal 11.7-17.4 [facility] Comment on above: Performed By: #### L [id number] ####[facility] RESPIRATORY [id number] [address] [place] [address] [place] LPM 15 Normal [facility] Comment on above: Performed By: #### L [id number] ####[facility] RESPIRATORY [id number] [place] [address] [place] METHEMOGLOBIN/100 IN BLOOD 0.6 % Normal 0.0-1.5 [facility] Comment on above: Performed By: #### L [id number] ####[facility] RESPIRATORY [id number] [place] [address] [place] Oxygen (Bld) [Partial pressure] 53 mm[Hg] Invalid Interpretation Code 83-100 [facility] Comment on above: Performed By: #### L [id number] ####[facility] RESPIRATORY [id number] [place] [address] [facility] OXYGEN SATURATION (%) IN ARTERIAL BLOOD 83.8 % Invalid Interpretation Code 94.0-98.0 [facility] Comment on above: Performed By: #### L [id number] ####[facility] RESPIRATORY [id number] [place] [address] [facility] OXYGENATED HEMOGLOBIN IN BLOOD 81.7 % Invalid Interpretation Code 90.0-95.0 [facility] Comment on above: Performed By: #### L [id number] ####[facility] RESPIRATORY [id number] [place] [address] [facility] pH (Bld) 7.43 [pH] Normal 7.35-7.45 [facility] Comment on above: Performed By: #### L [id number] ####[facility] RESPIRATORY [id number] [place] [address] [facility] SOURCE OF OXYGEN SALTER Normal [facility] Comment on above: Performed By: #### L [id number] ####[facility] RESPIRATORY [id number] [place] [address] [facility] ARTERIAL BLOOD GAS WITH IONI ZED CALCIUMon 08-21-2024 Base excess Calc (Bld) [Moles/Vol] 6.2 mmol/L High -2.0-3.0 [facility] Comment on above: Performed By: #### L [id number] ####[facility] RESPIRATORY [id number] [place] [address] [place] CALCIUM IONIZED (MMOL/L) IN BLOOD 1.30 mmol/L Normal 1.15-1.33 [facility] Comment on above: Performed By: #### L [id number] ####[facility] RESPIRATORY [id number] [place] [address] [facility] CO2 (Bld) [Partial pressure] 45 mm[Hg] Normal 35-48 [facility] Comment on above: Performed By: #### L [id number] ####[facility] RESPIRATORY [id number] [place] [address] [place] FIO2 50 % Normal [facility] Comment on above: Performed By: #### L [id number] ####[facility] RESPIRATORY [id number] [place] [address] [facility] HCO3 (Bld) [Moles/Vol] 31.3 mmol/L High 21.0-28.0 [facility] Comment on above: Performed By: #### L [id number] ####[facility] RESPIRATORY [id number] [place] [address] [facility] Oxygen (Bld) [Partial pressure] 70 mm[Hg] Low 83-100 [facility] Comment on above: Performed By: #### L [id number] ####[facility] RESPIRATORY [id number] [place] [address] [facility] OXYGEN SATURATION (%) IN ARTERIAL BLOOD 94.9 % Normal 94.0-98.0 [facility] Comment on above: Performed By: #### L [id number] ####[facility] RESPIRATORY [id number] [place] [address] [place] PEEP 8 cmH2O Normal [facility] Comment on above: Performed By: #### L [id number] ####[facility] RESPIRATORY [id number] [place] [address] [facility] pH (Bld) 7.45 [pH] Normal 7.35-7.45 [facility] Comment on above: Performed By: #### L [id number] ####[facility] RESPIRATORY [id number] [place] [address] [place] PRESSURE SUPPORT 14 Normal [facility] Comment on above: Performed By: #### L [id number] ####[facility] RESPIRATORY [id number] [place] [address] [facility] SOURCE OF OXYGEN Bi-PAP Normal [facility] Comment on above: Performed By: #### L [id number] ####[facility] RESPIRATORY [id number] [place] [address] [facility] BASIC METABOLIC PANELon 02-0 Anion gap [Moles/Vol] 11 mmol/L Normal 7-20 [facility] Comment on above: Performed By: #### L [id number] ####[facility] (BEAKER)[address] [place] [address] Calcium [Mass/Vol] 9.4 mg/dL Normal 8.6-10.3 [facility] Comment on above: Performed By: #### L [id number] ####[facility] (BEAKER)[address] [place] [address] Chloride [Moles/Vol] 101 mmol/L Normal 98-107 [facility] Comment on above: Performed By: #### L [id number] ####[facility] (BEAKER)[address] [place] [address] CO2 [Moles/Vol] 30 mmol/L Normal 21-31 [facility] Comment on above: Performed By: #### L [id number] ####[facility] (BEAKER)[address] [place] [address] Creatinine [Mass/Vol] 1.05 mg/dL Normal 0.70-1.30 [facility] Comment on above: Performed By: #### L [id number] ####[facility] (BEAKER)[address] [place] [address] GLOMERULAR FILTRATION RATE ML/MIN/1.73 SQ M.PREDICTED 78.8 mL/min/1.73m*2 Normal >60.0 [facility] Comment on above: Result Comment: The [facility]???s estimated glomerular filtration rate (eGFR) will no longer include consideration of race in its calculation. The National Kidney Foundation???s eGFR Task Force developed new recommendations for the estimation of the glomerular filtration rate in the [place] They recommend immediate implementation of the new equation refit without the race variable in all laboratories because the calculation does not include race. In addition to not including race in the calculation and reporting, it included diversity in its development, and has acceptable performance characteristics and potential consequences that do not disproportionately affect any one group of individuals. Performed By: #### L [id number] ####[facility] ([facility])[address] [place] [address] Glucose [Mass/Vol] 269 mg/dL High 70-100 [facility] Comment on above: Performed By: #### L [id number] ####[facility] ([facility])[address] [place] [address] Potassium [Moles/Vol] 4.0 mmol/L Normal 3.5-5.1 [facility] Comment on above: Performed By: #### L [id number] ####[facility] ([facility])[address] [place] [address] Sodium [Moles/Vol] 138 mmol/L Normal 136-145 [facility] Comment on above: Performed By: #### L [id number] ####[facility] ([facility])[address] [place] [address] Urea nitrogen [Mass/Vol] 35 mg/dL High 7-25 [facility] Comment on above: Performed By: #### L [id number] ####[facility] ([facility])[address] [place] [address] UREA NITROGEN/CREATININE (MASS RATIO) IN SER/PLAS 33.3 Normal [facility] Comment on above: Performed By: #### L [id number] ####[facility] ([facility])[address] [place] [address] CALCIUM, IONIZEDon CALCIUM IONIZED (MMOL/L) IN BLOOD 1.29 mmol/L Normal 1.15-1.33 [facility] Comment on above: Performed By: #### C ALCIUM, IONIZED ####[facility] RESPIRATORY [id number] [place] [address] [place] CBC WITH AUTO DIFFERENTIALon 08-21-2024 Basophils (Bld) [#/Vol] 0.05 10*3/uL Normal 0.00-0.20 [facility] Comment on above: Performed By: #### L [id number] ####[facility] (BEAKER)[address] [place] [address] Basophils/100 WBC (Bld) 0.6 % Normal 0.0-1.0 [facility] Comment on above: Performed By: #### L [id number] ####[facility] (BEAKER)[address] [place] [address] Eosinophils (Bld) [#/Vol] 0.43 10*3/uL Normal 0.00-0.50 [facility] Comment on above: Performed By: #### L [id number] ####[facility] (BEAKER)[address] [place] [address] Eosinophils/100 WBC (Bld) 5.2 % Normal 0.0-6.0 [facility] Comment on above: Performed By: #### L [id number] ####[facility] (BEAKER)[address] [place] [address] Erythrocyte distribution width (RBC) [Ratio] 14.8 % Normal 11.5-15.0 [facility] Comment on above: Performed By: #### L [id number] ####[facility] (BEAKER)[address] [place] [address] ERYTHROCYTE MEAN CORPUSCULAR HEMOGLOBIN CONCENTRATION (G/DL) BY AUTOMATED 31.1 g/dL Low 32.0-35.0 [facility] Comment on above: Performed By: #### L [id number] ####[facility] (BEAKER)[address] [place] [address] Hematocrit (Bld) [Volume fraction] 52.1 % Normal 39.0-55.0 [facility] Comment on above: Performed By: #### L [id number] ####[facility] (BEAKER)[address] [place] [address] Hemoglobin (Bld) [Mass/Vol] 16.2 g/dL Normal 13.0-17.0 [facility] Comment on above: Performed By: #### L [id number] ####[facility] (BEAKER)[address] [place] [address] Immature granulocytes (Bld) [#/Vol] 0.06 10*3/uL Normal 0.00-0.20 [facility] Comment on above: Performed By: #### L [id number] ####[facility] (BEAKER)[address] [place] [address] Immature granulocytes/100 WBC (Bld) 0.7 % Normal 0.0-1.0 [facility] Comment on above: Performed By: #### L [id number] ####[facility] (BEAKER)[address] [place] [address] Lymphocytes (Bld) [#/Vol] 1.10 10*3/uL Low 1.20-4.00 [facility] Comment on above: Performed By: #### L [id number] ####[facility] (BEAKER)[address] [place] [address] Lymphocytes/100 WBC (Bld) 13.3 % Low 20.0-45.0 [facility] Comment on above: Performed By: #### L [id number] ####[facility] (BEAKER)[address] [place] [address] MCH (RBC) [Entitic mass] 29.1 pg Normal 27.0-33.0 [facility] Comment on above: Performed By: #### L [id number] ####[facility] (BEAKER)[address] [place] [address] MCV (RBC) [Entitic vol] 93.7 fL Normal 82.0-98.0 [facility] Comment on above: Performed By: #### L [id number] ####[facility] (BEAKER)[address] [place] [address] Monocytes (Bld) [#/Vol] 0.92 10*3/uL Normal 0.10-1.00 [facility] Comment on above: Performed By: #### L [id number] ####[facility] (BEAKER)[address] [place] [address] Monocytes/100 WBC (Bld) 11.1 % Normal 5.0-12.0 [facility] Comment on above: Performed By: #### L [id number] ####[facility] [place] [address] Neutrophils (Bld) [#/Vol] 5.72 10*3/uL Normal 1.60-7.60 [facility] Comment on above: Performed By: #### L [id number] ####[facility] ([facility])[address] [place] [address] Neutrophils/100 WBC (Bld) 69.1 % Normal 40.0-72.0 [facility] Comment on above: Performed By: #### L [id number] ####[facility] ([facility])[address] [place] [address] NRBC (PER 100 WBCS) BY AUTOMATED COUNT 0.0 % Normal 0 [facility] Comment on above: Performed By: #### L [id number] ####[facility] ([facility])[address] [place] [address] PLATELETS (10*3/UL) IN BLOOD AUTOMATED COUNT 199 10*3/uL Normal 150-400 [facility] Comment on above: Performed By: #### L [id number] ####[facility] ([facility])[address] [place] [address] RBC (Bld) [#/Vol] 5.56 10*6/uL Normal 4.20-5.70 [facility] Comment on above: Performed By: #### L [id number] ####[facility] ([facility])[address] [place] [address] WBC (Bld) [#/Vol] 8.28 10*3/uL Normal 4.00-10.60 [facility] Comment on above: Performed By: #### L [id number] ####[facility] (BEAKER)[address] [place] [address] CT BRAIN PERFUSIONon 025 CT BRAIN PERFUSION Invalid Interpretation Code [facility] CT HEAD WO IV CONTRASTon CT HEAD WO IV CONTRAST [facility] W IV [facility]on CTA HEAD W IV CONTRAST [facility] CTA NECK W IV CONTRASTon CTA NECK W IV CONTRAST [facility] MAGNESIUMon 08-21-2024 Magnesium [Mass/Vol] 1.8 mg/dL Low 1.9-2.7 [facility] Comment on above: Performed By: #### L [id number] ####[facility] (BEAKER)[address] [place] [address] MRSA/MSSA DNA NASALon 2024 MRSA DNA Positive Abnormal Negative [facility] Comment on above: Order Comment: Testi ng methodology is an automated qualitative in vitro diagnostic test for the directdetection and differentiation of Staphylococcus aureus (SA) DNA and methicillin-resistant Staphylococcus aureus (MRSA) DNA from nasal swabs in patients at risk for nasal colonization. The test utilizes real-time polymerase chain reaction (PCR) for the amplification of MRSA/SA DNA and fluorogenic target-specific hybridization probes for the detection of the amplified DNA. A negative result does not preclude nasal colonization. Performed By: #### L [id number] ####[facility] (BEAKER)[address] [place] [address] MSSA DNA Negative Normal Negative [facility] Comment on above: Order Comment: Testi ng methodology is an automated qualitative in vitro diagnostic test for the directdetection and differentiation of Staphylococcus aureus (SA) DNA and methicillin-resistant Staphylococcus aureus (MRSA) DNA from nasal swabs in patients at risk for nasal colonization. The test utilizes real-time polymerase chain reaction (PCR) for the amplification of MRSA/SA DNA and fluorogenic target-specific hybridization probes for the detection of the amplified DNA. A negative result does not preclude nasal colonization. Performed By: #### L [id number] ####[facility] (BEAKER)[address] [place] [address] PHOSPHORUSon 08-21-2024 Magnesium [Mass/Vol] 2.5 mg/dL Normal 2.5-5.0 [facility] Comment on above: Performed By: #### L [id number] ####[facility] (BEAKER)[address] [place] [address] POCT GLUCOSE METER UNSOLICIT ED RESULTSon 08-21-2024 Glucose [Mass/Vol] 230 mg/dL High 70-105 [facility] Comment on above: Order Comment: Waive d Testing in the ED is performed under the ED CLIA certificate #[id number]. Result Comment: [email or web address] Performed By: #### L [id number] ####[facility] ([facility])[address] [place] [address] Glucose [Mass/Vol] 226 mg/dL High 70-105 [facility] Comment on above: Order Comment: Waive d Testing in the ED is performed under the ED CLIA certificate #[id number]. Result Comment: [email or web address] Performed By: #### L [id number] ####[facility] ([facility])[address] [place] [address] Glucose [Mass/Vol] 229 mg/dL High 70-105 [facility] Comment on above: Order Comment: Waive d Testing in the ED is performed under the ED CLIA certificate #[id number]. Result Comment: [email or web address] Performed By: #### L [id number] ####[facility] ([facility])[address] [place] [address] Glucose [Mass/Vol] 234 mg/dL High 70-105 [facility] Comment on above: Order Comment: Waive d Testing in the ED is performed under the ED CLIA certificate #[id number]. Result Comment: [email or web address] Performed By: #### L [id number] ####[facility] ([facility])[address] [place] [address] POTASSIUM, WHOLE BLOODon Potassium [Moles/Vol] 3.3 mmol/L Low 3.5-5.1 [facility] Comment on above: Performed By: #### P OTASSIUM, WHOLE BLOOD ####[facility] RESPIRATORY [id number] [place] [address] [place] SODIUM, WHOLE BLOODon 2024 SODIUM, WHOLE BLOOD 137 Normal 136-145 [facility] Comment on above: Performed By: #### S ODIUM, WHOLE BLOOD ####[facility] RESPIRATORY [id number] [place] [address] [place] 30on 08-20-2024 30 Normal [facility] ANTI-XA (HEPARIN LEVEL)on HEPARIN UNFRACTIONATED (U/ML) IN PPP BY CHROMOGENIC METHOD 0.30 IU/mL Normal 0.3-0.7 [facility] Comment on above: Result Comment: Vassar roxaban and Apixaban will interfere with the anti Xa assay used to monitor UFH and LMWH. Performed By: #### L [id number] ####[facility] (BEAKER)[address] [place] [address] BASIC METABOLIC PANELon 07-23 Anion gap [Moles/Vol] 8 mmol/L Normal 7-20 [facility] Comment on above: Performed By: #### L [id number] ####[facility] (BEAKER)[address] [place] [address] Calcium [Mass/Vol] 9.4 mg/dL Normal 8.6-10.3 [facility] Comment on above: Performed By: #### L [id number] ####[facility] (BEAKER)[address] [place] [address] Chloride [Moles/Vol] 99 mmol/L Normal 98-107 [facility] Comment on above: Performed By: #### L [id number] ####[facility] ([facility]AKER)[address] [place] [address] CO2 [Moles/Vol] 34 mmol/L High -31 [facility] Comment on above: Performed By: #### L [id number] ####[facility] (BEAKER)[address] [place] [address] Creatinine [Mass/Vol] 0.97 mg/dL Normal 0.70-1.30 [facility] Comment on above: Performed By: #### L [id number] ####[facility] ([facility])[address] [place] [place] [address] GLOMERULAR FILTRATION RATE ML/MIN/1.73 SQ M.PREDICTED 86.6 mL/min/1.73m*2 Normal >60.0 [facility] Comment on above: Result Comment: [facility]???s estimated glomerular filtration rate (eGFR) will no longer include consideration of race in its calculation. The National Kidney Foundation???s eGFR Task Force developed new recommendations for the estimation of the glomerular filtration rate in the [place] They recommend immediate implementation of the new equation refit without the race variable in all laboratories because the calculation does not include race. In addition to not including race in the calculation and reporting, it included diversity in its development, and has acceptable performance characteristics and potential consequences that do not disproportionately affect any one group of individuals. Performed By: #### L [id number] ####[facility] ([facility])[address] [place] [address] Glucose [Mass/Vol] 267 mg/dL High 70-100 [facility] Comment on above: Performed By: #### L [id number] ####[facility] ([facility])[address] [place] [address] Potassium [Moles/Vol] 3.9 mmol/L Normal 3.5-5.1 [facility] Comment on above: Performed By: #### L [id number] ####[facility] ([facility])[address] [place] [address] Sodium [Moles/Vol] 137 mmol/L Normal 136-145 [facility] Comment on above: Performed By: #### L [id number] ####[facility] ([facility])[address] [place] [address] Urea nitrogen [Mass/Vol] 33 mg/dL High 7-25 [facility] Comment on above: Performed By: #### L [id number] ####[facility] ([facility])[address] [place] [address] UREA NITROGEN/CREATININE (MASS RATIO) IN SER/PLAS 34.0 Normal [facility] Comment on above: Performed By: #### L [id number] ####[facility] ([facility] [place] [address] CBC WITH AUTO DIFFERENTIALon 08-20-2024 Basophils (Bld) [#/Vol] 0.04 10*3/uL Normal 0.00-0.20 [facility] Comment on above: Performed By: #### L [id number] ####[facility] ([facility] [place] [address] Basophils/100 WBC (Bld) 0.4 % Normal 0.0-1.0 [facility] Comment on above: Performed By: #### L [id number] ####[facility] ([facility])[address] [place] [address] Eosinophils (Bld) [#/Vol] 0.58 10*3/uL High 0.00-0.50 [facility] Comment on above: Performed By: #### L [id number] ####[facility] ([facility] [place] [address] Eosinophils/100 WBC (Bld) 5.6 % Normal 0.0-6.0 [facility] Comment on above: Performed By: #### L [id number] ####[facility] ([facility] [place] [address] Erythrocyte distribution width (RBC) [Ratio] 15.1 % High 11.5-15.0 [facility] Comment on above: Performed By: #### L [id number] ####[facility] (BEAKER)[address] [place] [address] ERYTHROCYTE MEAN CORPUSCULAR HEMOGLOBIN CONCENTRATION (G/DL) BY AUTOMATED 30.5 g/dL Low 32.0-35.0 [facility] Comment on above: Performed By: #### L [id number] ####[facility] (BEAKER)[address] [place] [address] Hematocrit (Bld) [Volume fraction] 52.1 % Normal 39.0-55.0 [facility] Comment on above: Performed By: #### L [id number] ####[facility] (BEAKER)[address] [place] [address] Hemoglobin (Bld) [Mass/Vol] 15.9 g/dL Normal 13.0-17.0 [facility] Comment on above: Performed By: #### L [id number] ####[facility] ([facility] [place] [address] Immature granulocytes (Bld) [#/Vol] 0.07 10*3/uL Normal 0.00-0.20 [facility] Comment on above: Performed By: #### L [id number] ####[facility] (BEAKER)[address] [place] [address] Immature granulocytes/100 WBC (Bld) 0.7 % Normal 0.0-1.0 [facility] Comment on above: Performed By: #### L [id number] ####[facility] (BEAKER)[address] [place] [address] Lymphocytes (Bld) [#/Vol] 0.94 10*3/uL Low 1.20-4.00 [facility] Comment on above: Performed By: #### L [id number] ####[facility] (BEAKER)[address] [place] [address] Lymphocytes/100 WBC (Bld) 9.1 % Low 20.0-45.0 [facility] Comment on above: Performed By: #### L [id number] ####[facility] (BEAKER)[address] [place] [address] MCH (RBC) [Entitic mass] 29.0 pg Normal 27.0-33.0 [facility] Comment on above: Performed By: #### L [id number] ####[facility] (BEAKER)[address] [place] [address] MCV (RBC) [Entitic vol] 94.9 fL Normal 82.0-98.0 [facility] Comment on above: Performed By: #### L [id number] ####[facility] [place] [address] Monocytes (Bld) [#/Vol] 0.95 10*3/uL Normal 0.10-1.00 [facility] Comment on above: Performed By: #### L [id number] ####[facility] ([facility])[address] [place] [address] Monocytes/100 WBC (Bld) 9.2 % Normal 5.0-12.0 [facility] Comment on above: Performed By: #### L [id number] ####[facility] ([facility])[address] [place] [address] Neutrophils (Bld) [#/Vol] 7.72 10*3/uL High 1.60-7.60 [facility] Comment on above: Performed By: #### L [id number] ####[facility] ([facility])[address] [place] [address] Neutrophils/100 WBC (Bld) 75.0 % High 40.0-72.0 [facility] Comment on above: Performed By: #### L [id number] ####[facility] ([facility])[address] [place] [address] NRBC (PER 100 WBCS) BY AUTOMATED COUNT 0.0 % Normal 0 [facility] Comment on above: Performed By: #### L [id number] ####[facility] ([facility])[address] [place] [address] PLATELETS (10*3/UL) IN BLOOD AUTOMATED COUNT 209 10*3/uL Normal 150-400 [facility] Comment on above: Performed By: #### L [id number] ####[facility] ([facility] [place] [address] RBC (Bld) [#/Vol] 5.49 10*6/uL Normal 4.20-5.70 [facility] Comment on above: Performed By: #### L [id number] ####[facility] ([facility])[address] [place] [address] WBC (Bld) [#/Vol] 10.30 10*3/uL Normal 4.00-10.60 [facility] Comment on above: Performed By: #### L [id number] ####[facility] ([facility])[address] [place] [address] MAGNESIUMon 08-20-2024 Magnesium [Mass/Vol] 1.9 mg/dL Normal 1.9-2.7 [facility] Comment on above: Performed By: #### L [id number] ####[facility] ([facility])[address] [place] [address] PHOSPHORUSon 08-20-2024 Magnesium [Mass/Vol] 2.1 mg/dL Low 2.5-5.0 [facility] Comment on above: Performed By: #### L [id number] ####[facility] ([facility])[address] [place] [address] POCT GLUCOSE METER UNSOLICIT ED RESULTSon 08-20-2024 Glucose [Mass/Vol] 268 mg/dL High 70-105 [facility] Comment on above: Order Comment: Waive d Testing in the ED is performed under the ED CLIA certificate #[id number]. Result Comment: [email or web address] [email or web address] Performed By: #### L [id number] ####[facility] ([facility])[address] [place] [address] 30on 08-19-2024 30 Normal [facility] 30 Normal [facility] ANTI-XA (HEPARIN LEVEL)on HEPARIN UNFRACTIONATED (U/ML) IN PPP BY CHROMOGENIC METHOD 0.41 IU/mL Normal 0.3-0.7 [facility] Comment on above: Result Comment: Tatyana roxaban and Apixaban will interfere with the anti Xa assay used to monitor UFH and LMWH. Performed By: #### L [id number] ####[facility] ([facility])[address] [place] [address] BASIC METABOLIC PANELon -3 Anion gap [Moles/Vol] 8 mmol/L Normal 7-20 [facility] Comment on above: Performed By: #### L [id number] ####[facility] (BEAKER)[address] [place] [address] Calcium [Mass/Vol] 8.9 mg/dL Normal 8.6-10.3 [facility] Comment on above: Performed By: #### L [id number] ####[facility] (BEAKER)[address] [place] [address] Chloride [Moles/Vol] 99 mmol/L Normal 98-107 [facility] Comment on above: Performed By: #### L [id number] ####[facility] (BEAKER)[address] [place] [address] CO2 [Moles/Vol] 37 mmol/L High 21-31 [facility] Comment on above: Performed By: #### L [id number] ####[facility] (BEAKER)[address] [place] [address] Creatinine [Mass/Vol] 1.00 mg/dL Normal 0.70-1.30 [facility] Comment on above: Performed By: #### L [id number] ####[facility] ([facility] [place] [address] GLOMERULAR FILTRATION RATE ML/MIN/1.73 SQ M.PREDICTED 83.5 mL/min/1.73m*2 Normal >60.0 [facility] Comment on above: Result Comment: [facility]???s estimated glomerular filtration rate (eGFR) will no longer include consideration of race in its calculation. The National Kidney Foundation???s eGFR Task Force developed new recommendations for the estimation of the glomerular filtration rate in the [place] They recommend immediate implementation of the new equation refit without the race variable in all laboratories because the calculation does not include race. In addition to not including race in the calculation and reporting, it included diversity in its development, and has acceptable performance characteristics and potential consequences that do not disproportionately affect any one group of individuals. Performed By: #### L [id number] ####[facility] ([facility] [place] [address] Glucose [Mass/Vol] 219 mg/dL High 70-100 [facility] Comment on above: Performed By: #### L [id number] ####[facility] ([facility] [place] [address] Potassium [Moles/Vol] 3.9 mmol/L Normal 3.5-5.1 [facility] Comment on above: Performed By: #### L [id number] ####[facility] ([facility])[address] [place] [address] Sodium [Moles/Vol] 140 mmol/L Normal 136-145 [facility] Comment on above: Performed By: #### L [id number] ####[facility] ([facility])[address] [place] [address] Urea nitrogen [Mass/Vol] 28 mg/dL High 7-25 [facility] Comment on above: Performed By: #### L [id number] ####[facility] ([facility])[address] [place] [address] UREA NITROGEN/CREATININE (MASS RATIO) IN SER/PLAS 28.0 Normal [facility] Comment on above: Performed By: #### L [id number] ####[facility] ([facility])[address] [place] [address] CBC WITH AUTO DIFFERENTIALon 08-19-2024 Basophils (Bld) [#/Vol] 0.04 10*3/uL Normal 0.00-0.20 [facility] Comment on above: Performed By: #### L [id number] ####[facility] ([facility])[address] [place] [address] Basophils/100 WBC (Bld) 0.4 % Normal 0.0-1.0 [facility] Comment on above: Performed By: #### L [id number] ####[facility] ([facility] [place] [address] Eosinophils (Bld) [#/Vol] 0.62 10*3/uL High 0.00-0.50 [facility] Comment on above: Performed By: #### L [id number] ####[facility] (BEAKER)[address] [place] [address] Eosinophils/100 WBC (Bld) 6.7 % High 0.0-6.0 [facility] Comment on above: Performed By: #### L [id number] ####[facility] (BEAKER)[address] [place] [address] Erythrocyte distribution width (RBC) [Ratio] 15.4 % High 11.5-15.0 [facility] Comment on above: Performed By: #### L [id number] ####[facility] (BEAKER)[address] [place] [address] ERYTHROCYTE MEAN CORPUSCULAR HEMOGLOBIN CONCENTRATION (G/DL) BY AUTOMATED 29.8 g/dL Low 32.0-35.0 [facility] Comment on above: Performed By: #### L [id number] ####[facility] (BEAKER)[address] [place] [address] Hematocrit (Bld) [Volume fraction] 49.4 % Normal 39.0-55.0 [facility] Comment on above: Performed By: #### L [id number] ####[facility] (BEAKER)[address] [place] [address] Hemoglobin (Bld) [Mass/Vol] 14.7 g/dL Normal 13.0-17.0 [facility] Comment on above: Performed By: #### L [id number] ####[facility] (BEAKER)[address] [place] [address] Immature granulocytes (Bld) [#/Vol] 0.06 10*3/uL Normal 0.00-0.20 [facility] Comment on above: Performed By: #### L [id number] ####[facility] (BEAKER)[address] [place] [address] Immature granulocytes/100 WBC (Bld) 0.7 % Normal 0.0-1.0 [facility] Comment on above: Performed By: #### L [id number] ####[facility] ([facility])[address] [place] [address] Lymphocytes (Bld) [#/Vol] 0.86 10*3/uL Low 1.20-4.00 [facility] Comment on above: Performed By: #### L [id number] ####[facility] ([facility])[address] [place] [address] Lymphocytes/100 WBC (Bld) 9.3 % Low 20.0-45.0 [facility] Comment on above: Performed By: #### L [id number] ####[facility] ([facility])[address] [place] [address] MCH (RBC) [Entitic mass] 28.9 pg Normal 27.0-33.0 [facility] Comment on above: Performed By: #### L [id number] ####[facility] ([facility])[address] [place] [address] MCV (RBC) [Entitic vol] 97.2 fL Normal 82.0-98.0 [facility] Comment on above: Performed By: #### L [id number] ####[facility] ([facility])[address] [place] [address] Monocytes (Bld) [#/Vol] 0.94 10*3/uL Normal 0.10-1.00 [facility] Comment on above: Performed By: #### L [id number] ####[facility] ([facility])[address] [place] [address] Monocytes/100 WBC (Bld) 10.2 % Normal 5.0-12.0 [facility] Comment on above: Performed By: #### L [id number] ####[facility] ([facility] [place] [address] Neutrophils (Bld) [#/Vol] 6.68 10*3/uL Normal 1.60-7.60 [facility] Comment on above: Performed By: #### L [id number] ####[facility] (BEAKER)[address] [place] [address] Neutrophils/100 WBC (Bld) 72.7 % High 40.0-72.0 [facility] Comment on above: Performed By: #### L [id number] ####[facility] ([facility] [place] [address] NRBC (PER 100 WBCS) BY AUTOMATED COUNT 0.0 % Normal 0 [facility] Comment on above: Performed By: #### L [id number] ####[facility] ([facility] [place] [address] PLATELETS (10*3/UL) IN BLOOD AUTOMATED COUNT 198 10*3/uL Normal 150-400 [facility] Comment on above: Performed By: #### L [id number] ####[facility] ([facility])[address] [place] [address] RBC (Bld) [#/Vol] 5.08 10*6/uL Normal 4.20-5.70 [facility] Comment on above: Performed By: #### L [id number] ####[facility] ([facility] [place] [address] WBC (Bld) [#/Vol] 9.20 10*3/uL Normal 4.00-10.60 [facility] Comment on above: Performed By: #### L [id number] ####[facility] ([facility] [place] [address] CONSULTon 08-19-2024 CONSULT Normal [facility] MAGNESIUMon 08-19-2024 Magnesium [Mass/Vol] 1.9 mg/dL Normal 1.9-2.7 [facility] Comment on above: Performed By: #### L [id number] ####[facility] (BEAKER)[address] [place] [address] PHOSPHORUSon 08-19-2024 Magnesium [Mass/Vol] 2.9 mg/dL Normal 2.5-5.0 [facility] Comment on above: Performed By: #### L [id number] ####[facility] ([facility])[address] [facility] [address] POCT GLUCOSE METER UNSOLICIT ED RESULTSon 08-19-2024 Glucose [Mass/Vol] 239 mg/dL High 70-105 [facility] Comment on above: Order Comment: Waive d Testing in the ED is performed under the ED CLIA certificate #[id number]. Result Comment: [email or web address] Performed By: #### L [id number] ####[facility] ([facility])[address] [place] [address] Glucose [Mass/Vol] 251 mg/dL High 70-105 [facility] Comment on above: Order Comment: Waive d Testing in the ED is performed under the ED CLIA certificate #[id number]. Result Comment: [email or web address] [email or web address] Performed By: #### L [id number] ####[facility] ([facility])[address] [place] [address] Glucose [Mass/Vol] 185 mg/dL High 70-105 [facility] Comment on above: Order Comment: Waive d Testing in the ED is performed under the ED CLIA certificate #[id number]. Result Comment: [email or web address] [email or web address] Performed By: #### L [id number] ####[facility] ([place])[address] [facility] [address] TRIGLYCERIDESon 08-19-2024 FASTING? UNKNOWN Normal [facility] Comment on above: Performed By: #### L [id number] ####[facility] ([facility])[address] [place] [address] Magnesium [Mass/Vol] 192 mg/dL High 40-149 [facility] Comment on above: Result Comment: TRIG LYCERIDE REFERENCE RANGE:20 YEARS AND OLDER CARDIOVASCULAR RISKLESS THAN 150 mg/dL LOW [id number] TO 199 mg/dL BORDERLINE [id number] mg/dL AND GREATER HIGH RISK Performed By: #### L [id number] ####[facility] ([facility] [place] [address] ANTI-XA (HEPARIN LEVEL)on HEPARIN UNFRACTIONATED (U/ML) IN PPP BY CHROMOGENIC METHOD 0.50 IU/mL Normal 0.3-0.7 [facility] Comment on above: Result Comment: Vassar roxaban and Apixaban will interfere with the anti Xa assay used to monitor UFH and LMWH. Performed By: #### L [id number] ####[facility] ([facility])[address] [place] [address] HEPARIN UNFRACTIONATED (U/ML) IN PPP BY CHROMOGENIC METHOD 0.60 IU/mL Normal 0.3-0.7 [facility] Comment on above: Result Comment: Tatyana roxaban and Apixaban will interfere with the anti Xa assay used to monitor UFH and LMWH. Performed By: #### L [id number] ####[facility] ([facility])[address] [place] [address] BASIC METABOLIC PANELon 07-22 Anion gap [Moles/Vol] 8 mmol/L Normal 7-20 [facility] Comment on above: Performed By: #### L [id number] ####[facility] ([facility])[address] [place] [address] Calcium [Mass/Vol] 8.7 mg/dL Normal 8.6-10.3 [facility] Comment on above: Performed By: #### L [id number] ####[facility] ([facility])[address] [place] [address] Chloride [Moles/Vol] 98 mmol/L Normal 98-107 [facility] Comment on above: Performed By: #### L [id number] ####[facility] ([facility])[address] [place] [address] CO2 [Moles/Vol] 41 mmol/L Critically high 21-31 [facility] Comment on above: Performed By: #### L [id number] ####[facility] ([facility])[address] [place] [address] Creatinine [Mass/Vol] 1.05 mg/dL Normal 0.70-1.30 [facility] Comment on above: Performed By: #### L [id number] ####[facility] ([facility])[address] [place] [address] GLOMERULAR FILTRATION RATE ML/MIN/1.73 SQ M.PREDICTED 78.8 mL/min/1.73m*2 Normal >60.0 [facility] Comment on above: Result Comment: [facility]???s estimated glomerular filtration rate (eGFR) will no longer include consideration of race in its calculation. The National Kidney Foundation???s eGFR Task Force developed new recommendations for the estimation of the glomerular filtration rate in the [place] They recommend immediate implementation of the new equation refit without the race variable in all laboratories because the calculation does not include race. In addition to not including race in the calculation and reporting, it included diversity in its development, and has acceptable performance characteristics and potential consequences that do not disproportionately affect any one group of individuals. Performed By: #### L [id number] ####[facility] ([facility])[address] [place] [address] Glucose [Mass/Vol] 201 mg/dL High 70-100 [facility] Comment on above: Performed By: #### L [id number] ####[facility] ([facility])[address] [place] [address] Potassium [Moles/Vol] 3.7 mmol/L Normal 3.5-5.1 [facility] Comment on above: Performed By: #### L [id number] ####[facility] ([facility])[address] [place] [address] Sodium [Moles/Vol] 143 mmol/L Normal 136-145 [facility] Comment on above: Performed By: #### L [id number] ####[facility] ([facility])[address] [place] [address] Urea nitrogen [Mass/Vol] 25 mg/dL Normal 7-25 [facility] Comment on above: Performed By: #### L [id number] ####[facility] ([facility])[address] [place] [address] UREA NITROGEN/CREATININE (MASS RATIO) IN SER/PLAS 23.8 Normal [facility] Comment on above: Performed By: #### L [id number] ####[facility] ([facility])[address] [place] [address] CBC WITH AUTO DIFFERENTIALon 08-18-2024 Basophils (Bld) [#/Vol] 0.03 10*3/uL Normal 0.00-0.20 [facility] Comment on above: Performed By: #### L [id number] ####[facility] ([facility])[address] [place] [address] Basophils/100 WBC (Bld) 0.3 % Normal 0.0-1.0 [facility] Comment on above: Performed By: #### L [id number] ####[facility] ([facility])[address] [place] [address] Eosinophils (Bld) [#/Vol] 0.45 10*3/uL Normal 0.00-0.50 [facility] Comment on above: Performed By: #### L [id number] ####[facility] ([facility])[address] [place] [address] Eosinophils/100 WBC (Bld) 5.0 % Normal 0.0-6.0 [facility] Comment on above: Performed By: #### L [id number] ####[facility] ([facility])[address] [place] [address] Erythrocyte distribution width (RBC) [Ratio] 15.5 % High 11.5-15.0 [facility] Comment on above: Performed By: #### L [id number] ####[facility] ([facility])[address] [place] [address] ERYTHROCYTE MEAN CORPUSCULAR HEMOGLOBIN CONCENTRATION (G/DL) BY AUTOMATED 29.7 g/dL Low 32.0-35.0 [facility] Comment on above: Performed By: #### L [id number] ####[facility] ([facility])[address] [place] [address] Hematocrit (Bld) [Volume fraction] 49.5 % Normal 39.0-55.0 [facility] Comment on above: Performed By: #### L [id number] ####[facility] ([facility])[address] [place] [address] Hemoglobin (Bld) [Mass/Vol] 14.7 g/dL Normal 13.0-17.0 [facility] Comment on above: Performed By: #### L [id number] ####[facility] ([facility])[address] [place] [address] Immature granulocytes (Bld) [#/Vol] 0.05 10*3/uL Normal 0.00-0.20 [facility] Comment on above: Performed By: #### L [id number] ####[facility] ([facility] [place] [address] Immature granulocytes/100 WBC (Bld) 0.6 % Normal 0.0-1.0 [facility] Comment on above: Performed By: #### L [id number] ####[facility] ([facility])[address] [place] [address] Lymphocytes (Bld) [#/Vol] 0.93 10*3/uL Low 1.20-4.00 [facility] Comment on above: Performed By: #### L [id number] ####[facility] ([facility])[address] [place] [address] Lymphocytes/100 WBC (Bld) 10.4 % Low 20.0-45.0 [facility] Comment on above: Performed By: #### L [id number] ####[facility] ([facility])[address] [place] [address] MCH (RBC) [Entitic mass] 29.2 pg Normal 27.0-33.0 [facility] Comment on above: Performed By: #### L [id number] ####[facility] ([facility])[address] [place] [address] MCV (RBC) [Entitic vol] 98.2 fL High 82.0-98.0 [facility] Comment on above: Performed By: #### L [id number] ####[facility] ([facility] [place] [address] Monocytes (Bld) [#/Vol] 1.06 10*3/uL High 0.10-1.00 [facility] Comment on above: Performed By: #### L [id number] ####[facility] ([facility] [place] [address] Monocytes/100 WBC (Bld) 11.9 % Normal 5.0-12.0 [facility] Comment on above: Performed By: #### L [id number] ####[facility] ([facility])[address] [place] [address] Neutrophils (Bld) [#/Vol] 6.41 10*3/uL Normal 1.60-7.60 [facility] Comment on above: Performed By: #### L [id number] ####[facility] ([facility])[address] [place] [address] Neutrophils/100 WBC (Bld) 71.8 % Normal 40.0-72.0 [facility] Comment on above: Performed By: #### L [id number] ####[facility] ([facility] [place] [address] NRBC (PER 100 WBCS) BY AUTOMATED COUNT 0.0 % Normal 0 [facility] Comment on above: Performed By: #### L [id number] ####[facility] ([facility] [place] [address] PLATELETS (10*3/UL) IN BLOOD AUTOMATED COUNT 208 10*3/uL Normal 150-400 [facility] Comment on above: Performed By: #### L [id number] ####[facility] ([facility] [place] [address] RBC (Bld) [#/Vol] 5.04 10*6/uL Normal 4.20-5.70 [facility] Comment on above: Performed By: #### L [id number] ####[facility] ([facility])[address] [place] [address] WBC (Bld) [#/Vol] 8.93 10*3/uL Normal 4.00-10.60 [facility] Comment on above: Performed By: #### L [id number] ####[facility] ([facility])[address] [place] [address] CONSULTon 08-18-2024 CONSULT Normal [facility] MAGNESIUMon 08-18-2024 Magnesium [Mass/Vol] 2.1 mg/dL Normal 1.9-2.7 [facility] Comment on above: Performed By: #### L [id number] ####[facility] ([facility])[address] [place] [address] PHOSPHORUSon 08-18-2024 Magnesium [Mass/Vol] 2.9 mg/dL Normal 2.5-5.0 [facility] Comment on above: Performed By: #### L [id number] ####[facility] ([facility])[address] [place] [address] POCT GLUCOSE METER UNSOLICIT ED RESULTSon 08-18-2024 Glucose [Mass/Vol] 194 mg/dL High 70-105 [facility] Comment on above: Order Comment: Waive d Testing in the ED is performed under the ED CLIA certificate #[id number]. Result Comment: [email or web address] [email or web address] Performed By: #### L [id number] ####[facility] ([facility])[address] [place] [address] Glucose [Mass/Vol] 183 mg/dL High 70-105 [facility] Comment on above: Order Comment: Waive d Testing in the ED is performed under the ED CLIA certificate #[id number]. Result Comment: ezab ors2 Performed By: #### L [id number] ####[facility] ([facility] [place] [address] Glucose [Mass/Vol] 173 mg/dL High 70-105 [facility] Comment on above: Order Comment: Waive d Testing in the ED is performed under the ED CLIA certificate #[id number]. Result Comment: ezab ors2 Performed By: #### L [id number] ####[facility] ([facility] [place] [address] Glucose [Mass/Vol] 200 mg/dL High 70-105 [facility] Comment on above: Order Comment: Waive d Testing in the ED is performed under the ED CLIA certificate #[id number]. Result Comment: [email or web address] [email or web address] Performed By: #### L [id number] ####[facility] ([facility])[address] [place] [address] SPUTUM CULTUREon 08-18-2024 Clindamycin [Susc] <=0.5 Susceptible [facility] Comment on above: Performed By: #### L [id number] ####[facility] ([facility])[address] [place] [address] DAPTOmycin [Susc] <=1 Susceptible [facility] Comment on above: Performed By: #### L [id number] ####[facility] ([facility])[address] [place] [address] Linezolid [Susc] <=1 Susceptible [facility] Comment on above: Performed By: #### L [id number] ####[facility] ([facility])[address] [place] [address] Oxacillin [Susc] >2 Resistant [facility] Comment on above: Performed By: #### L [id number] ####[facility] ([facility] [place] [address] Tetracycline [Susc] <=0.5 Susceptible [facility] Comment on above: Performed By: #### L [id number] ####[facility] (BEAKER)[address] [place] [address] Trimethoprim+Sulfameth oxazole [Susc] <=0.5/9.5 Susceptible [facility] Comment on above: Performed By: #### L [id number] ####[facility] ([facility]AKER)[address] [place] [address] Vancomycin [Susc] <=0.5 Susceptible [facility] Comment on above: Performed By: #### L [id number] ####[facility] ([facility] [place] [address] TRIGLYCERIDESon 08-18-2024 FASTING? unknown [facility] Comment on above: Performed By: #### L [id number] ####[facility] ([facility])[address] [place] [address] Magnesium [Mass/Vol] 154 mg/dL High 40-149 [facility] Comment on above: Result Comment: TRIG LYCERIDE REFERENCE RANGE:20 YEARS AND OLDER CARDIOVASCULAR RISKLESS THAN 150 mg/dL LOW [id number] TO 199 mg/dL BORDERLINE [id number] mg/dL AND GREATER HIGH RISK Performed By: #### L [id number] ####[facility] ([facility])[address] [place] [address] 30on 08-17-2024 30 Normal [facility] ANTI-XA (HEPARIN LEVEL)on HEPARIN UNFRACTIONATED (U/ML) IN PPP BY CHROMOGENIC METHOD 0.86 IU/mL High 0.3-0.7 [facility] Comment on above: Result Comment: Tatyana roxaban and Apixaban will interfere with the anti Xa assay used to monitor UFH and LMWH. Performed By: #### L [id number] ####[facility] ([facility])[address] [place] [address] HEPARIN UNFRACTIONATED (U/ML) IN PPP BY CHROMOGENIC METHOD >1.00 Critically high 0.3-0.7 [facility] Comment on above: Result Comment: Vassar roxaban and Apixaban will interfere with the anti Xa assay used to monitor UFH and LMWH. Performed By: #### L [id number] ####[facility] (BEAKER)[address] [place] [address] HEPARIN UNFRACTIONATED (U/ML) IN PPP BY CHROMOGENIC METHOD >1.00 Critically high 0.3-0.7 [facility] Comment on above: Performed By: #### L [id number] ####[facility] ([facility])[address] [place] [address] APTTon 08-17-2024 ACTIVATED PARTIAL THROMBOPLASTIN TIME IN PPP BY COAGULATION ASSAY 99.6 Seconds High 25.0-35.0 [facility] Comment on above: Result Comment: Clin ical significance of the APTT is questionable in the presence of heparin. Performed By: #### L [id number] ####[facility] ([facility])[address] [place] [address] ACTIVATED PARTIAL THROMBOPLASTIN TIME IN PPP BY COAGULATION ASSAY 98.9 Seconds High 25.0-35.0 [facility] Comment on above: Result Comment: Clin ical significance of the APTT is questionable in the presence of heparin. Performed By: #### L [id number] ####[facility] ([facility])[address] [place] [address] B-TYPE NATRIURETIC PEPTIDEon 08-17-2024 Natriuretic peptide B (Bld) [Mass/Vol] 75 pg/mL Normal 0-100 [facility] Comment on above: Performed By: #### L [id number] ####[facility] ([facility])[address] [place] [address] BASIC METABOLIC PANELon 07-22 Anion gap [Moles/Vol] 9 mmol/L Normal 7-20 [facility] Comment on above: Performed By: #### L [id number] ####[facility] ([facility])[address] [place] [address] Calcium [Mass/Vol] 8.8 mg/dL Normal 8.6-10.3 [facility] Comment on above: Performed By: #### L [id number] ####[facility] ([facility])[address] [place] [address] Chloride [Moles/Vol] 97 mmol/L Low 98-107 [facility] Comment on above: Performed By: #### L [id number] ####[facility] [place] [address] CO2 [Moles/Vol] 45 mmol/L Critically high 21-31 [facility] Comment on above: Performed By: #### L [id number] ####[facility] ([facility])[address] [place] [address] Creatinine [Mass/Vol] 0.93 mg/dL Normal 0.70-1.30 [facility] Comment on above: Performed By: #### L [id number] ####[facility] ([facility])[address] [place] [address] GLOMERULAR FILTRATION RATE ML/MIN/1.73 SQ M.PREDICTED 91.1 mL/min/1.73m*2 Normal >60.0 [facility] Comment on above: Result Comment: The [facility]???s estimated glomerular filtration rate (eGFR) will no longer include consideration of race in its calculation. The National Kidney Foundation???s eGFR Task Force developed new recommendations for the estimation of the glomerular filtration rate in the [place] They recommend immediate implementation of the new equation refit without the race variable in all laboratories because the calculation does not include race. In addition to not including race in the calculation and reporting, it included diversity in its development, and has acceptable performance characteristics and potential consequences that do not disproportionately affect any one group of individuals. Performed By: #### L [id number] ####[facility] ([facility])[address] [place] [address] Glucose [Mass/Vol] 190 mg/dL High 70-100 [facility] Comment on above: Performed By: #### L [id number] ####[facility] ([facility] [place] [address] Potassium [Moles/Vol] 3.5 mmol/L Normal 3.5-5.1 [facility] Comment on above: Performed By: #### L [id number] ####[facility] ([facility] [place] [address] Sodium [Moles/Vol] 147 mmol/L High 136-145 [facility] Comment on above: Performed By: #### L [id number] ####[facility] ([facility])[address] [place] [address] Urea nitrogen [Mass/Vol] 28 mg/dL High 7-25 [facility] Comment on above: Performed By: #### L [id number] ####[facility] ([facility])[address] [place] [address] UREA NITROGEN/CREATININE (MASS RATIO) IN SER/PLAS 30.1 Normal [facility] Comment on above: Performed By: #### L [id number] ####[facility] ([facility])[address] [place] [address] CBC WITH AUTO DIFFERENTIALon 08-17-2024 Basophils (Bld) [#/Vol] 0.02 10*3/uL Normal 0.00-0.20 [facility] Comment on above: Performed By: #### L [id number] ####[facility] ([facility])[address] [place] [address] Basophils/100 WBC (Bld) 0.2 % Normal 0.0-1.0 [facility] Comment on above: Performed By: #### L [id number] ####[facility] ([facility])[address] [place] [address] Eosinophils (Bld) [#/Vol] 0.20 10*3/uL Normal 0.00-0.50 [facility] Comment on above: Performed By: #### L [id number] ####[facility] ([facility])[address] [place] [address] Eosinophils/100 WBC (Bld) 2.4 % Normal 0.0-6.0 [facility] Comment on above: Performed By: #### L [id number] ####[facility] ([facility])[address] [place] [address] Erythrocyte distribution width (RBC) [Ratio] 15.3 % High 11.5-15.0 [facility] Comment on above: Performed By: #### L [id number] ####[facility] (BEAKER)[address] [place] [address] ERYTHROCYTE MEAN CORPUSCULAR HEMOGLOBIN CONCENTRATION (G/DL) BY AUTOMATED 30.0 g/dL Low 32.0-35.0 [facility] Comment on above: Performed By: #### L [id number] ####[facility] ([facility]AKER)[address] [place] [address] Hematocrit (Bld) [Volume fraction] 49.7 % Normal 39.0-55.0 [facility] Comment on above: Performed By: #### L [id number] ####[facility] ([facility]AKER)[address] [place] [address] Hemoglobin (Bld) [Mass/Vol] 14.9 g/dL Normal 13.0-17.0 [facility] Comment on above: Performed By: #### L [id number] ####[facility] ([facility]AKER)[address] [place] [address] Immature granulocytes (Bld) [#/Vol] 0.04 10*3/uL Normal 0.00-0.20 [facility] Comment on above: Performed By: #### L [id number] ####[facility] ([facility]AKER)[address] [place] [address] Immature granulocytes/100 WBC (Bld) 0.5 % Normal 0.0-1.0 [facility] Comment on above: Performed By: #### L [id number] ####[facility] ([facility]ER)[address] [place] [address] Lymphocytes (Bld) [#/Vol] 0.87 10*3/uL Low 1.20-4.00 [facility] Comment on above: Performed By: #### L [id number] ####[facility] ([facility])[address] [place] [address] Lymphocytes/100 WBC (Bld) 10.5 % Low 20.0-45.0 [facility] Comment on above: Performed By: #### L [id number] ####[facility] ([facility]AKER)[address] [place] [address] MCH (RBC) [Entitic mass] 29.0 pg Normal 27.0-33.0 [facility] Comment on above: Performed By: #### L [id number] ####[facility] ([facility]ER)[address] [place] [address] MCV (RBC) [Entitic vol] 96.9 fL Normal 82.0-98.0 [facility] Comment on above: Performed By: #### L [id number] ####[facility] ([facility])[address] [place] [address] Monocytes (Bld) [#/Vol] 1.21 10*3/uL High 0.10-1.00 [facility] Comment on above: Performed By: #### L [id number] ####[facility] ([facility])[address] [place] [address] Monocytes/100 WBC (Bld) 14.6 % High 5.0-12.0 [facility] Comment on above: Performed By: #### L [id number] ####[facility] ([facility])[address] [place] [address] Neutrophils (Bld) [#/Vol] 5.97 10*3/uL Normal 1.60-7.60 [facility] Comment on above: Performed By: #### L [id number] ####[facility] ([facility])[address] [place] [address] Neutrophils/100 WBC (Bld) 71.8 % Normal 40.0-72.0 [facility] Comment on above: Performed By: #### L [id number] ####[facility] [place], [place] [address] NRBC (PER 100 WBCS) BY AUTOMATED COUNT 0.0 % Normal 0 [facility] Comment on above: Performed By: #### L [id number] ####[facility] (BEAKER)[address] [place] [address] PLATELETS (10*3/UL) IN BLOOD AUTOMATED COUNT 210 10*3/uL Normal 150-400 [facility] Comment on above: Performed By: #### L [id number] ####[facility] ([facility])[address] [place] [address] RBC (Bld) [#/Vol] 5.13 10*6/uL Normal 4.20-5.70 [facility] Comment on above: Performed By: #### L [id number] ####[facility] ([facility])[address] [place] [address] WBC (Bld) [#/Vol] 8.31 10*3/uL Normal 4.00-10.60 [facility] Comment on above: Performed By: #### L [id number] ####[facility] ([facility])[address] [place] [address] MAGNESIUMon 08-17-2024 Magnesium [Mass/Vol] 2.2 mg/dL Normal 1.9-2.7 [facility] Comment on above: Performed By: #### L [id number] ####[facility] ([facility])[address] [place] [address] Magnesium [Mass/Vol] 1.8 mg/dL Low 1.9-2.7 [facility] Comment on above: Performed By: #### L [id number] ####[facility] ([facility])[address] [place] [address] Magnesium [Mass/Vol] 1.6 mg/dL Low 1.9-2.7 [facility] Comment on above: Performed By: #### L [id number] ####[facility] ([facility])[address] [place] [address] PHOSPHORUSon 08-17-2024 Magnesium [Mass/Vol] 3.2 mg/dL Normal 2.5-5.0 [facility] Comment on above: Performed By: #### L [id number] ####[facility] [place] [address] POCT GLUCOSE METER UNSOLICIT ED RESULTSon 08-17-2024 Glucose [Mass/Vol] 184 mg/dL High 70-105 [facility] Comment on above: Order Comment: Waive d Testing in the ED is performed under the ED CLIA certificate #[id number]. Result Comment: umesh sheikh Performed By: #### L [id number] ####[facility] ([facility])[address] [place] [address] Glucose [Mass/Vol] 191 mg/dL High 70-105 [facility] Comment on above: Order Comment: Waive d Testing in the ED is performed under the ED CLIA certificate #[id number]. Result Comment: [email or web address] [email or web address] Performed By: #### L [id number] ####[facility] ([facility])[address] [place] [address] POTASSIUMon 08-17-2024 Potassium [Moles/Vol] 3.8 mmol/L Normal 3.5-5.1 [facility] Comment on above: Performed By: #### L [id number] ####[facility] ([facility])[address] [place] [address] Potassium [Moles/Vol] 3.7 mmol/L Normal 3.5-5.1 [facility] Comment on above: Performed By: #### L [id number] ####[facility] ([facility])[address] [place] [address] PROTIME-INRon 08-17-2024 INR IN PPP BY COAGULATION ASSAY 1.19 High 0.90-1.10 [facility] Comment on above: Result Comment: [facility] P RECOMMENDED INR FOR WARFARIN THERAPY CONDITION INRPROPHYLAXIS OF VENOUS THROMBOSIS 2-3(HIGH-RISK SURGERY)TREATMENT OF VENOUS THROMBOSIS 2-3TREATMENT OF PULMONARY EMBOLISM 2-3PREVENTION OF SYSTEMIC EMBOLISM: 2-3 ACUTE MYOCARDIAL INFARCTION TISSUE HEART VALVES VALVULAR HEART DISEASE ATRIAL FIBRILLATION RECURRENT SYSTEMIC EMBOLISMMECHANICAL HEART VALVE 2.5-3.5 FROM: ORAL ANTICOAGULANTS. MECHANISM OF ACTION, CLINICAL EFFECTIVENESS, AND OPTIMAL THERAPEUTIC RANGE. CHEST 1995;108:231S-246S. Performed By: #### L [id number] ####[facility] ([employer])[address] [place] [address] PROTHROMBIN TIME (PT) IN PPP BY COAGULATION ASSAY 15.0 Seconds High 12.3-14.8 [facility] Comment on above: Performed By: #### L [id number] ####[facility] ([employer])[address] [place] [address] INR IN PPP BY COAGULATION ASSAY 1.19 High 0.90-1.10 [facility] Comment on above: Result Comment: ACC[facility] P RECOMMENDED INR FOR WARFARIN THERAPY CONDITION INRPROPHYLAXIS OF VENOUS THROMBOSIS 2-3(HIGH-RISK SURGERY)TREATMENT OF VENOUS THROMBOSIS 2-3TREATMENT OF PULMONARY EMBOLISM 2-3PREVENTION OF SYSTEMIC EMBOLISM: 2-3 ACUTE MYOCARDIAL INFARCTION TISSUE HEART VALVES VALVULAR HEART DISEASE ATRIAL FIBRILLATION RECURRENT SYSTEMIC EMBOLISMMECHANICAL HEART VALVE 2.5-3.5 FROM: ORAL ANTICOAGULANTS. MECHANISM OF ACTION, CLINICAL EFFECTIVENESS, AND OPTIMAL THERAPEUTIC RANGE. CHEST 1995;108:231S-246S. Performed By: #### L [id number] ####[facility] [employer])[address] [place] [address] PROTHROMBIN TIME (PT) IN PPP BY COAGULATION ASSAY 15.1 Seconds High 12.3-14.8 [facility] Comment on above: Performed By: #### L [id number] ####[facility] ([facility])[address] [place] [address] TRIGLYCERIDESon 08-17-2024 FASTING? Unknown Normal [facility] Comment on above: Performed By: #### L [id number] ####[facility] ([facility])[address] [place] [address] Magnesium [Mass/Vol] 119 mg/dL Normal 40-149 [facility] Comment on above: Result Comment: TRIG LYCERIDE REFERENCE RANGE:20 YEARS AND OLDER CARDIOVASCULAR RISKLESS THAN 150 mg/dL LOW [id number] TO 199 mg/dL BORDERLINE [id number] mg/dL AND GREATER HIGH RISK Performed By: #### L [id number] ####[facility] ([facility])[address] [place] [address] TROPONIN Ion 08-17-2024 Troponin I.cardiac [Mass/Vol] 0.04 ng/mL Normal 0.00-0.04 [facility] Comment on above: Performed By: #### L [id number] ####[facility] ([facility])[address] [place] [address] Troponin I.cardiac [Mass/Vol] 0.04 ng/mL Normal 0.00-0.04 [facility] Comment on above: Performed By: #### L [id number] ####[facility] ([facility])[address] [place] [address] VANCOMYCIN, TROUGHon 025 VANCOMYCIN (UG/ML) IN SER/PLAS - TROUGH 23.6 ug/mL Critically high 5.0-20.0 [facility] Comment on above: Performed By: #### L [id number] ####[facility] ([facility])[address] [place] [address] BASIC METABOLIC PANELon 07-22 Anion gap [Moles/Vol] 11 mmol/L Normal 7-20 [facility] Comment on above: Performed By: #### L [id number] ####[facility] ([facility])[address] [place] [address] Calcium [Mass/Vol] 8.9 mg/dL Normal 8.6-10.3 [facility] Comment on above: Performed By: #### L [id number] ####[facility] ([facility] [place] [address] Chloride [Moles/Vol] 99 mmol/L Normal 98-107 [facility] Comment on above: Performed By: #### L [id number] ####[facility] ([facility] [place] [address] CO2 [Moles/Vol] 38 mmol/L High 21-31 [facility] Comment on above: Performed By: #### L [id number] ####[facility] ([facility] [place] [address] Creatinine [Mass/Vol] 1.10 mg/dL Normal 0.70-1.30 [facility] Comment on above: Performed By: #### L [id number] ####[facility] ([facility])[address] [place] [address] GLOMERULAR FILTRATION RATE ML/MIN/1.73 SQ M.PREDICTED 74.5 mL/min/1.73m*2 Normal >60.0 [facility] Comment on above: Result Comment: [facility]???s estimated glomerular filtration rate (eGFR) will no longer include consideration of race in its calculation. The National Kidney Foundation???s eGFR Task Force developed new recommendations for the estimation of the glomerular filtration rate in the [place] They recommend immediate implementation of the new equation refit without the race variable in all laboratories because the calculation does not include race. In addition to not including race in the calculation and reporting, it included diversity in its development, and has acceptable performance characteristics and potential consequences that do not disproportionately affect any one group of individuals. Performed By: #### L [id number] ####[facility] ([facility] [place] [address] Glucose [Mass/Vol] 202 mg/dL High 70-100 [facility] Comment on above: Performed By: #### L [id number] ####[facility] ([facility])[address] [place] [address] Potassium [Moles/Vol] 3.3 mmol/L Low 3.5-5.1 [facility] Comment on above: Performed By: #### L [id number] ####[facility] ([facility])[address] [place] [address] Sodium [Moles/Vol] 145 mmol/L Normal 136-145 [facility] Comment on above: Performed By: #### L [id number] ####[facility] ([facility])[address] [place] [address] Urea nitrogen [Mass/Vol] 38 mg/dL High 7-25 [facility] Comment on above: Performed By: #### L [id number] ####[facility] ([facility])[address] [place] [address] UREA NITROGEN/CREATININE (MASS RATIO) IN SER/PLAS 34.5 Normal [facility] Comment on above: Performed By: #### L [id number] ####[facility] ([facility])[address] [place] [address] CALCIUM, IONIZEDon CALCIUM IONIZED (MMOL/L) IN BLOOD Normal [facility] Comment on above: Result Comment: C^In calculable Performed By: #### C ALCIUM, IONIZED ####[facility] RESPIRATORY [id number] [place] [address] [place] CBC WITH AUTO DIFFERENTIALon 08-16-2024 Erythrocyte distribution width (RBC) [Ratio] 15.1 % High 11.5-15.0 [facility] Comment on above: Performed By: #### L [id number] ####[facility] ([facility] [place] [address] ERYTHROCYTE MEAN CORPUSCULAR HEMOGLOBIN CONCENTRATION (G/DL) BY AUTOMATED 30.9 g/dL Low 32.0-35.0 [facility] Comment on above: Performed By: #### L [id number] ####[facility] [place] [address] Hematocrit (Bld) [Volume fraction] 52.1 % Normal 39.0-55.0 [facility] Comment on above: Performed By: #### L [id number] ####[facility] ([facility])[address] [place] [address] Hemoglobin (Bld) [Mass/Vol] 16.1 g/dL Normal 13.0-17.0 [facility] Comment on above: Performed By: #### L [id number] ####[facility] ([facility])[address] [place] [address] MCH (RBC) [Entitic mass] 29.4 pg Normal 27.0-33.0 [facility] Comment on above: Performed By: #### L [id number] ####[facility] ([facility])[address] [place] [address] MCV (RBC) [Entitic vol] 95.1 fL Normal 82.0-98.0 [facility] Comment on above: Performed By: #### L [id number] ####[facility] ([facility])[address] [place] [address] NRBC (PER 100 WBCS) BY AUTOMATED COUNT 0.0 % Normal 0 [facility] Comment on above: Performed By: #### L [id number] ####[facility] ([facility])[address] [place] [address] PLATELETS (10*3/UL) IN BLOOD AUTOMATED COUNT 243 10*3/uL Normal 150-400 [facility] Comment on above: Performed By: #### L [id number] ####[facility] ([facility])[address] [place] [address] RBC (Bld) [#/Vol] 5.48 10*6/uL Normal 4.20-5.70 [facility] Comment on above: Performed By: #### L [id number] ####[facility] ([facility])[address] [place] [address] WBC (Bld) [#/Vol] 9.57 10*3/uL Normal 4.00-10.60 [facility] Comment on above: Performed By: #### L [id number] ####[facility] ([facility])[address] [place] [address] CONSULTon 08-16-2024 CONSULT Normal [facility] CONSULT Normal [facility] CTA CHEST W IV CONTRASTon CTA CHEST W IV CONTRAST Invalid Interpretation Code [facility] MAGNESIUMon 08-16-2024 Magnesium [Mass/Vol] 1.9 mg/dL Normal 1.9-2.7 [facility] Comment on above: Performed By: #### L [id number] ####[facility] ([facility])[address] [place] [address] Magnesium [Mass/Vol] 1.7 mg/dL Low 1.9-2.7 [facility] Comment on above: Performed By: #### L [id number] ####[facility] ([facility])[address] [place] [address] MANUAL DIFFERENTIALon 2024 BASOPHILS (10*3/UL) IN BLOOD BY CALCULATION 0.02 10*3/uL Normal 0.00-0.20 [facility] Comment on above: Performed By: #### L [id number] ####[facility] ([facility])[address] [place] [address] BASOPHILS/100 LEUKOCYTES IN BLOOD BY AUTOMATED COUNT 0.2 % Normal 0.0-1.0 [facility] Comment on above: Performed By: #### L [id number] ####[facility] ([facility])[address] [place] [address] EOSINOPHILS (10*3/UL) IN BLOOD BY CALCULATION 0.10 10*3/uL Normal 0.00-0.50 [facility] Comment on above: Performed By: #### L [id number] ####[facility] ([facility])[address] [place] [address] EOSINOPHILS/100 LEUKOCYTES IN BLOOD BY AUTOMATED COUNT 1.0 % Normal 0.0-6.0 [facility] Comment on above: Performed By: #### L [id number] ####[facility] ([facility])[address] [place] [address] IMMATURE GRANULOCYTES (10*3/UL) IN BLOOD BY CALCULATION 0.06 10*3/uL Normal 0.00-0.20 [facility] Comment on above: Performed By: #### L [id number] ####[facility] ([facility])[address] [place] [address] IMMATURE GRANULOCYTES/100 LEUKOCYTES IN BLOOD BY AUTOMATED COUNT 0.6 % Normal 0.0-1.0 [facility] Comment on above: Performed By: #### L [id number] ####[facility] ([facility])[address] [place] [address] LYMPHOCYTES (10*3/UL) IN BLOOD BY CALCULATION 0.73 10*3/uL Low 1.20-4.00 [facility] Comment on above: Performed By: #### L [id number] ####[facility] ([facility])[address] [place] [address] LYMPHOCYTES/100 LEUKOCYTES IN BLOOD BY AUTOMATED COUNT 7.6 % Low 20.0-45.0 [facility] Comment on above: Performed By: #### L [id number] ####[facility] ([facility])[address] [place] [address] MONOCYTES (10*3/UL) IN BLOOD BY CALCUATION 1.52 10*3/uL High 0.10-1.00 [facility] Comment on above: Performed By: #### L [id number] ####[facility] ([facility])[address] [place] [address] MONOCYTES/100 LEUKOCYTES IN BLOOD BY AUTOMATED COUNT 15.9 % High 5.0-12.0 [facility] Comment on above: Performed By: #### L [id number] ####[facility] ([facility])[address] [place] [address] NEUTROPHILS (10*3/UL) IN BLOOD BY CALCULATION 7.1 10*3/uL Normal 1.6-7.6 [facility] Comment on above: Performed By: #### L [id number] ####[facility] ([facility])[address] [place] [address] NEUTROPHILS/100 LEUKOCYTES IN BLOOD BY AUTOMATED COUNT 74.7 % High 40.0-72.0 [facility] Comment on above: Performed By: #### L [id number] ####[facility] ([facility])[address] [place] [address] PHOSPHORUSon 08-16-2024 Magnesium [Mass/Vol] 3.8 mg/dL Normal 2.5-5.0 [facility] Comment on above: Performed By: #### L [id number] ####[facility] ([facility])[address] [place] [address] Magnesium [Mass/Vol] 1.8 mg/dL Low 2.5-5.0 [facility] Comment on above: Performed By: #### L [id number] ####[facility] ([facility])[address] [place] [address] POCT GLUCOSE METER UNSOLICIT ED RESULTSon 08-16-2024 Glucose [Mass/Vol] 189 mg/dL High 70-105 [facility] Comment on above: Order Comment: Waive d Testing in the ED is performed under the ED CLIA certificate #[id number]. Result Comment: ljon es Performed By: #### L [id number] ####[facility] ([facility])[address] [place] [address] Glucose [Mass/Vol] 205 mg/dL High 70-105 [facility] Comment on above: Order Comment: Waive d Testing in the ED is performed under the ED CLIA certificate #[id number]. Result Comment: rgil l Performed By: #### L [id number] ####[facility] ([facility])[address] [place] [address] Glucose [Mass/Vol] 200 mg/dL High 70-105 [facility] Comment on above: Order Comment: Waive d Testing in the ED is performed under the ED CLIA certificate #[id number]. Result Comment: [email or web address] [email or web address] Performed By: #### L [id number] ####[facility] ([facility])[address] [place] [address] Glucose [Mass/Vol] 207 mg/dL High 70-105 [facility] Comment on above: Order Comment: Waive d Testing in the ED is performed under the ED CLIA certificate #[id number]. Result Comment: oyod er Performed By: #### L [id number] ####[facility] ([facility])[address] [place] [address] POTASSIUMon 08-16-2024 Potassium [Moles/Vol] 3.3 mmol/L Low 3.5-5.1 [facility] Comment on above: Performed By: #### L [id number] ####[facility] ([facility])[address] [place] [address] Potassium [Moles/Vol] 3.5 mmol/L Normal 3.5-5.1 [facility] Comment on above: Performed By: #### L [id number] ####[facility] ([facility])[address] [place] [address] POTASSIUM, WHOLE BLOODon Potassium [Moles/Vol] 3.5 mmol/L Normal 3.5-5.1 [facility] Comment on above: Performed By: #### P OTASSIUM, WHOLE BLOOD ####[facility] RESPIRATORY [id number] [place] [address] [place] SODIUM, WHOLE BLOODon 2024 SODIUM, WHOLE BLOOD Normal [facility] Comment on above: Result Comment: C^In calculable Performed By: #### S ODIUM, WHOLE BLOOD ####[facility] RESPIRATORY [id number] [place] [address] [place] TRIGLYCERIDESon 08-16-2024 FASTING? Unknown Normal [facility] Comment on above: Performed By: #### L [id number] ####[facility] ([facility])[address] [place] [address] Magnesium [Mass/Vol] 243 mg/dL High 40-149 [facility] Comment on above: Result Comment: TRIG LYCERIDE REFERENCE RANGE:20 YEARS AND OLDER CARDIOVASCULAR RISKLESS THAN 150 mg/dL LOW [id number] TO 199 mg/dL BORDERLINE [id number] mg/dL AND GREATER HIGH RISK Performed By: #### L [id number] ####[facility] (BEAKER)[address] [place] [address] 30on 08-15-2024 30 Normal [facility] 30 Normal [facility] BLOOD CULTUREon 08-15-2024 Bacteria identified Cx Nom (Bld) No growth at 5 days Normal [facility] Comment on above: Order Comment: From a different site than #1. Performed By: #### L [id number] ####[facility] (BEAKER)[address] [place] [address] Basophils Auto (Bld) [#/Vol] on 08-15-2024 Basophils (Bld) [#/Vol] Automated basophil count 0.0-0.1 [facility] Basophils/100 WBC Auto (Bld) on 08-15-2024 Basophils/100 WBC (Bld) Automated basophil % Low 0.2-2.0 [facility] CALCIUM, IONIZEDon CALCIUM IONIZED (MMOL/L) IN BLOOD 1.23 mmol/L Normal 1.15-1.33 [facility] Comment on above: Performed By: #### C ALCIUM, IONIZED ####[facility] RESPIRATORY [id number] [place] [address] [place] CBC WITH AUTO DIFFERENTIALon 08-15-2024 Basophils (Bld) [#/Vol] 0.01 10*3/uL Normal 0.00-0.20 [facility] Comment on above: Performed By: #### L [id number] ####[facility] (BEAKER)[address] [place] [address] Basophils/100 WBC (Bld) 0.1 % Normal 0.0-1.0 [facility] Comment on above: Performed By: #### L [id number] ####[facility] (BEAKER)[address] [place] [address] Eosinophils (Bld) [#/Vol] 0.01 10*3/uL Normal 0.00-0.50 [facility] Comment on above: Performed By: #### L [id number] ####[facility] [place] [address] Eosinophils/100 WBC (Bld) 0.1 % Normal 0.0-6.0 [facility] Comment on above: Performed By: #### L [id number] ####[facility] ([facility])[address] [place] [address] Erythrocyte distribution width (RBC) [Ratio] 15.2 % High 11.5-15.0 [facility] Comment on above: Performed By: #### L [id number] ####[facility] [place] [address] ERYTHROCYTE MEAN CORPUSCULAR HEMOGLOBIN CONCENTRATION (G/DL) BY AUTOMATED 33.8 g/dL Normal 32.0-35.0 [facility] Comment on above: Performed By: #### L [id number] ####[facility] [place] [address] Hematocrit (Bld) [Volume fraction] 47.1 % Normal 39.0-55.0 [facility] Comment on above: Performed By: #### L [id number] ####[facility] (BEAKER)[address] [place] [address] Hemoglobin (Bld) [Mass/Vol] 15.9 g/dL Normal 13.0-17.0 [facility] Comment on above: Performed By: #### L [id number] ####[facility] (BEAKER)[address] [place] [address] Immature granulocytes (Bld) [#/Vol] 0.05 10*3/uL Normal 0.00-0.20 [facility] Comment on above: Performed By: #### L [id number] ####[facility] ([facility])[address] [place] [address] Immature granulocytes/100 WBC (Bld) 0.7 % Normal 0.0-1.0 [facility] Comment on above: Performed By: #### L [id number] ####[facility] ([facility])[address] [place] [address] Lymphocytes (Bld) [#/Vol] 0.54 10*3/uL Low 1.20-4.00 [facility] Comment on above: Performed By: #### L [id number] ####[facility] ([facility])[address] [place] [address] Lymphocytes/100 WBC (Bld) 7.2 % Low 20.0-45.0 [facility] Comment on above: Performed By: #### L [id number] ####[facility] ([facility])[address] [place] [address] MCH (RBC) [Entitic mass] 31.8 pg Normal 27.0-33.0 [facility] Comment on above: Performed By: #### L [id number] ####[facility] ([facility])[address] [place] [address] MCV (RBC) [Entitic vol] 94.2 fL Normal 82.0-98.0 [facility] Comment on above: Performed By: #### L [id number] ####[facility] [place] [address] Monocytes (Bld) [#/Vol] 1.23 10*3/uL High 0.10-1.00 [facility] Comment on above: Performed By: #### L [id number] ####[facility] [place] [address] Monocytes/100 WBC (Bld) 16.3 % High 5.0-12.0 [facility] Comment on above: Performed By: #### L [id number] ####[facility] (BEAKER)[address] [place] [address] Neutrophils (Bld) [#/Vol] 5.70 10*3/uL Normal 1.60-7.60 [facility] Comment on above: Performed By: #### L [id number] ####[facility] (BEAKER)[address] [place] [address] Neutrophils/100 WBC (Bld) 75.6 % High 40.0-72.0 [facility] Comment on above: Performed By: #### L [id number] ####[facility] (BEAKER)[address] [place] [address] NRBC (PER 100 WBCS) BY AUTOMATED COUNT 0.3 % High 0 [facility] Comment on above: Performed By: #### L [id number] ####[facility] (BEGOD[facility])[address] [place] [address] PLATELETS (10*3/UL) IN BLOOD AUTOMATED COUNT 237 10*3/uL Normal 150-400 [facility] Comment on above: Performed By: #### L [id number] ####[facility] (BEAKER)[address] [place], [place] [address] RBC (Bld) [#/Vol] 5.00 10*6/uL Normal 4.20-5.70 [facility] Comment on above: Performed By: #### L [id number] ####[facility] (BEAKER)[address] [place], [place] [address] WBC (Bld) [#/Vol] 7.54 10*3/uL Normal 4.00-10.60 [facility] Comment on above: Performed By: #### L [id number] ####[facility] (BEAKER)[address] [place] [address] COMPREHENSIVE METABOLIC PANE Kris 08-15-2024 Albumin [Mass/Vol] 2.9 g/dL Low 3.5-5.7 [facility] Comment on above: Performed By: #### L [id number] ####[facility] (BEAKER)[address] [place] [address] ALP [Catalytic activity/Vol] 58 U/L Normal 34-104 [facility] Comment on above: Performed By: #### L [id number] ####[facility] [place] [address] ALT [Catalytic activity/Vol] 21 U/L Normal 7-52 [facility] Comment on above: Performed By: #### L [id number] ####[facility] ([facility])[address] [place] [address] Anion gap [Moles/Vol] 13 mmol/L Normal 7-20 [facility] Comment on above: Performed By: #### L [id number] ####[facility] ([facility])[address] [place] [address] AST [Catalytic activity/Vol] 29 U/L Normal 13-39 [facility] Comment on above: Performed By: #### L [id number] ####[facility] ([facility])[address] [place] [address] Bilirubin [Mass/Vol] 1.0 mg/dL Normal 0.3-1.0 [facility] Comment on above: Performed By: #### L [id number] ####[facility] ([facility])[address] [place] [address] Calcium [Mass/Vol] 8.2 mg/dL Low 8.6-10.3 [facility] Comment on above: Performed By: #### L [id number] ####[facility] [place] [address] Chloride [Moles/Vol] 90 mmol/L Low 98-107 [facility] Comment on above: Performed By: #### L [id number] ####[facility] (BEAKER)[address] [place] [address] CO2 [Moles/Vol] 32 mmol/L High 21-31 [facility] Comment on above: Performed By: #### L [id number] ####[facility] ([facility])[address] [place] [address] Creatinine [Mass/Vol] 1.17 mg/dL Normal 0.70-1.30 [facility] Comment on above: Performed By: #### L [id number] ####[facility] ([facility])[address] [place] [address] GLOMERULAR FILTRATION RATE ML/MIN/1.73 SQ M.PREDICTED 69.2 mL/min/1.73m*2 Normal >60.0 [facility] Comment on above: Result Comment: [facility]???s estimated glomerular filtration rate (eGFR) will no longer include consideration of race in its calculation. The National Kidney Foundation???s eGFR Task Force developed new recommendations for the estimation of the glomerular filtration rate in the [place] They recommend immediate implementation of the new equation refit without the race variable in all laboratories because the calculation does not include race. In addition to not including race in the calculation and reporting, it included diversity in its development, and has acceptable performance characteristics and potential consequences that do not disproportionately affect any one group of individuals. Performed By: #### L [id number] ####[facility] ([facility])[address] [place] [address] Glucose [Mass/Vol] 219 mg/dL High 70-100 [facility] Comment on above: Performed By: #### L [id number] ####[facility] ([facility])[address] [place] [address] Potassium [Moles/Vol] 4.0 mmol/L Normal 3.5-5.1 [facility] Comment on above: Performed By: #### L [id number] ####[facility] ([facility])[address] [place] [address] Protein [Mass/Vol] 5.5 g/dL Low 6.0-8.3 [facility] Comment on above: Performed By: #### L [id number] ####[facility] ([facility])[address] [place] [address] Sodium [Moles/Vol] 131 mmol/L Low 136-145 [facility] Comment on above: Performed By: #### L [id number] ####[facility] ([facility])[address] [place] [address] Urea nitrogen [Mass/Vol] 42 mg/dL High 7-25 [facility] Comment on above: Performed By: #### L [id number] ####[facility] (BEAKER)[address] [place] [address] UREA NITROGEN/CREATININE (MASS RATIO) IN SER/PLAS 35.9 Normal [facility] Comment on above: Performed By: #### L [id number] ####[facility] (BEAKER)[address] [place] [address] Eosinophils/100 WBC Auto (Bl d)on 08-15-2024 Eosinophils/100 WBC (Bld) Automated eosinophil % Low 0.9-7.0 [facility] Erythrocyte distribution wid th Auto (RBC) [Ratio]on 08-15-2024 Erythrocyte distribution width (RBC) [Ratio] Erythrocyte distribution width [Ratio] by Automated count High 11.0-15.0 [facility] Estimated glomerular filtrat ion rate (GFR) non- Americanon 08-15-2024 GFR/1.73 sq M.predicted among non-blacks MDRD (S/P/Bld) [Vol rate/Area] Estimated glomerular filtration rate (GFR) non- Low >=60 mL/min/1.73m 2 [facility] Globulin Calc (S) [Mass/Vol] on 08-15-2024 Globulin (S) [Mass/Vol] Serum globulin measurement by calculation (mass/volume) [facility] HEMOGLOBIN A1Con 08-15-2024 Glucose [Mass/Vol] 189 mg/dL Normal [facility] Comment on above: Performed By: #### L [id number] ####[facility] (BEAKER)[address] [place] [address] HbA1c (Bld) [Mass fraction] 8.2 % High 4.0-6.0 [facility] Comment on above: Performed By: #### L [id number] ####[facility] (BEAKER)[address] [place] [address] HPon 08-15-2024 HP Normal [facility] Hematocrit Auto (Bld) [Volum e fraction]on 08-15-2024 Hematocrit (Bld) [Volume fraction] Hematocrit [Volume Fraction] of Blood by Automated count 42.0-54.0 [facility] Hemoglobin [Mass/volume] in Bloodon 08-15-2024 Hemoglobin (Bld) [Mass/Vol] Hemoglobin [Mass/volume] in Blood 14.0-18.0 [facility] LIPASEon 08-15-2024 LIPASE (U/L) IN SER/PLAS 28 U/L Normal 11-82 [facility] Comment on above: Result Comment: M-CH EMISTRY SPECIMEN MODERATELY HEMOLYZED RESULTS MAY NOT BE ACCURATE Performed By: #### L [id number] ####[facility] (BEAKER)[address] [place] [address] Laboratory - Chemistry and C hemistry - challengeon 08-15-2024 HCO3 (Bld) [Moles/Vol] 34.7 mmol/L High 22.0-26.0 [facility] Albumin [Mass/Vol] 2.6 g/dL Low 3.4-5.0 [facility] ALP [Catalytic activity/Vol] 81 U/L 46-116 [facility] ALT [Catalytic activity/Vol] 37 U/L 16-63 [facility] AST [Catalytic activity/Vol] 28 U/L 15-37 [facility] Bilirubin [Mass/Vol] 1.2 mg/dL High 0.2-1.0 [facility] Calcium [Mass/Vol] 9.2 mg/dL 8.5-10.1 [facility] Chloride [Moles/Vol] 101 mmol/L 98-107 [facility] CO2 [Moles/Vol] 35.4 mmol/L High 21.0-32.0 [facility] Creatinine [Mass/Vol] 1.66 mg/dL High 0.70-1.30 [facility] GFR/1.73 sq M.predicted MDRD (S/P/Bld) [Vol rate/Area] 51 mL/min/{1.73_m2} Low >=60 mL/min/1.73m 2 [facility] Glucose [Mass/Vol] 268 mg/dL High 74-106 [facility] Potassium [Moles/Vol] 3.8 mmol/L 3.5-5.1 [facility] Protein [Mass/Vol] 6.3 g/dL Low 6.4-8.2 [facility] Sodium [Moles/Vol] 143 mmol/L 136-145 [facility] Urea nitrogen [Mass/Vol] 52.0 mg/dL High 7.0-18.0 [facility] Urea nitrogen/Creatinine [Mass ratio] 31.3 mg/mg [facility] Laboratory - Hematology and Cell countson 08-15-2024 Immature granulocytes/100 WBC (Bld) 0.8 % High 0.0-0.5 [facility] Leukocytes [#/volume] correc beatris for nucleated erythrocytes in Blood by Automated counon 08-15-2024 WBC corrected for nucl RBC Auto (Bld) [#/Vol] Leukocytes [#/volume] corrected for nucleated erythrocytes in Blood by Automated coun 4.0-11.0 [facility] Lymphocytes Auto (Bld) [#/Vo l]on 08-15-2024 Lymphocytes (Bld) [#/Vol] Lymphocytes [#/volume] in Blood by Automated count Low 1.2-3.8 [facility] Lymphocytes/100 WBC Auto (Bl d)on 08-15-2024 Lymphocytes/100 WBC (Bld) Lymphocytes/100 leukocytes in Blood by Automated count Low 20.5-60.0 [facility] MAGNESIUMon 08-15-2024 Magnesium [Mass/Vol] 1.6 mg/dL Low 1.9-2.7 [facility] Comment on above: Performed By: #### L [id number] ####[facility] (BEAKER)[address] [place] [address] MCH Auto (RBC) [Entitic mass ]on 08-15-2024 MCH (RBC) [Entitic mass] MCH [Entitic mass] by Automated count 25.9-34.0 [facility] MCHC Auto (RBC) [Mass/Vol]on 08-15-2024 MCHC (RBC) [Mass/Vol] MCHC [Mass/volume] by Automated count 29.9-35.2 [facility] MCV Auto (RBC) [Entitic vol] on 08-15-2024 MCV (RBC) [Entitic vol] MCV [Entitic volume] by Automated count 80.0-94.0 [facility] MRSA/MSSA DNA NASALon 2024 MRSA DNA Negative Normal Negative [facility] Comment on above: Order Comment: Testi ng methodology is an automated qualitative in vitro diagnostic test for the directdetection and differentiation of Staphylococcus aureus (SA) DNA and methicillin-resistant Staphylococcus aureus (MRSA) DNA from nasal swabs in patients at risk for nasal colonization. The test utilizes real-time polymerase chain reaction (PCR) for the amplification of MRSA/SA DNA and fluorogenic target-specific hybridization probes for the detection of the amplified DNA. A negative result does not preclude nasal colonization. Performed By: #### L [id number] ####[facility] (BEAKER)[address] [place] [address] MSSA DNA Negative Normal Negative [facility] Comment on above: Order Comment: Testi ng methodology is an automated qualitative in vitro diagnostic test for the directdetection and differentiation of Staphylococcus aureus (SA) DNA and methicillin-resistant Staphylococcus aureus (MRSA) DNA from nasal swabs in patients at risk for nasal colonization. The test utilizes real-time polymerase chain reaction (PCR) for the amplification of MRSA/SA DNA and fluorogenic target-specific hybridization probes for the detection of the amplified DNA. A negative result does not preclude nasal colonization. Performed By: #### L [id number] ####[facility] (BEAKER)[address] [place] [address] Monocytes Auto (Bld) [#/Vol] on 08-15-2024 Monocytes (Bld) [#/Vol] Automated blood monocyte count 0.3-0.8 [facility] Monocytes/100 WBC Auto (Bld) on 08-15-2024 Monocytes/100 WBC (Bld) Automated monocyte % 1.7-12.0 [facility] Neutrophils Auto (Bld) [#/Vo l]on 08-15-2024 Neutrophils (Bld) [#/Vol] Neutrophils [#/volume] in Blood by Automated count 1.4-6.5 [facility] Neutrophils/100 WBC Auto (Bl d)on 08-15-2024 Neutrophils/100 WBC (Bld) Automated neutrophil % High 43.0-75.0 [facility] No Panel Informationon 08-15 Avinash Test Positive POSITIVE [facility] Arterial Blood Base Excess 11.0 mmol/L High <2.0-2.0 [facility] Arterial Blood Oxygen Saturation 97.0 % [facility] Arterial Blood Partial Pressure CO2 47.8 mm[Hg] High 35.0-45.0 [facility] Arterial Blood Partial Pressure O2 81.0 mm[Hg] 80.0-100.0 [facility] Arterial Blood pH 7.469 High 7.350-7.450 [facility] Blood Gas PEEP 8 [facility] Blood Gas Sample Site RIGHT RADIAL F [facility] Blood Gas Set Respiration Rate 22 [facility] Blood Gas Tidal Volume 600 Fi [facility] Blood Gas Ventilator Mode AC/VC [facility] FiO2 90 % [facility] Oxygen Delivery Device VENT Fi [facility] Reference Lab Test #2 Result 13.8 [facility] Eosinophils # (Auto) 0.0 10 3/uL 0.0-0.7 [facility] Immature Granulocyte # (Auto) 0.06 10 3/uL High 0.00-0.03 [facility] PHOSPHORUSon 08-15-2024 Magnesium [Mass/Vol] 2.7 mg/dL Normal 2.5-5.0 [facility] Comment on above: Performed By: #### L [id number] ####[facility] (BEAKER)[address] [place] [address] POCT GLUCOSE METER UNSOLICIT ED RESULTSon 08-15-2024 Glucose [Mass/Vol] 249 mg/dL High 70-105 [facility] Comment on above: Order Comment: Waive d Testing in the ED is performed under the ED CLIA certificate #[id number]. Result Comment: oyod er Performed By: #### L [id number] ####[facility] (BEAKER)[address] [place] [address] Glucose [Mass/Vol] 217 mg/dL High 70-105 [facility] Comment on above: Order Comment: Waive d Testing in the ED is performed under the ED CLIA certificate #[id number]. Result Comment: [email or web address] Performed By: #### L [id number] ####[facility] (BEAKER)[address] [place] [address] Glucose [Mass/Vol] 233 mg/dL High 70-105 [facility] Comment on above: Order Comment: Waive d Testing in the ED is performed under the ED CLIA certificate #[id number]. Result Comment: [email or web address] [email or web address] Performed By: #### L [id number] ####[facility] (BEAKER)[address] [place] [address] POTASSIUM, WHOLE BLOODon Potassium [Moles/Vol] 3.4 mmol/L Low 3.5-5.1 [facility] Comment on above: Performed By: #### P OTASSIUM, WHOLE BLOOD ####[facility] [id number] [place] [address] [facility] Platelet mean volume Auto (B ld) [Entitic vol]on 08-15-2024 Platelet mean volume (Bld) [Entitic vol] Platelet mean volume [Entitic volume] in Blood by Automated count 9.5-13.5 [facility] Platelets Auto (Bld) [#/Vol] on 08-15-2024 Platelets (Bld) [#/Vol] Platelets [#/volume] in Blood by Automated count 150-450 [facility] RBC Auto (Bld) [#/Vol]on RBC (Bld) [#/Vol] Erythrocytes [#/volume] in Blood by Automated count 4.70-6.10 [facility] SODIUM, WHOLE BLOODon 2024 SODIUM, WHOLE BLOOD 136 Normal 136-145 [facility] Comment on above: Performed By: #### S ODIUM, WHOLE BLOOD ####[facility]PIRATORY [id number] [place] [address] [facility] Serum or plasma albumin/glob ulin mass ratioon 08-15-2024 Albumin/Globulin [Mass ratio] Serum or plasma albumin/globulin mass ratio [facility] Serum or plasma anion gap de terminationon 08-15-2024 Anion gap [Moles/Vol] Serum or plasma an ion gap determination [facility] TRIGLYCERIDESon 08-15-2024 FASTING? unknown Normal [facility] Comment on above: Order Comment: Monit or triglycerides while patient is on propofol. Consult Nutrition if greater than 500 mg/dL. Performed By: #### L [id number] ####[facility] ([facility])[address] [place] [address] Magnesium [Mass/Vol] 3920 mg/dL High 40-[address] [facility] Comment on above: Order Comment: Monit or triglycerides while patient is on propofol. Consult Nutrition if greater than 500 mg/dL. Result Comment: TRIG LYCERIDE REFERENCE RANGE:20 YEARS AND OLDER CARDIOVASCULAR RISKLESS THAN 150 mg/dL LOW [id number] TO 199 mg/dL BORDERLINE [id number] mg/dL AND GREATER HIGH RISK Performed By: #### L [id number] ####[facility] ([facility])[address] [place] [address] TROPONIN Ion 08-15-2024 Troponin I.cardiac [Mass/Vol] 0.04 ng/mL Normal 0.00-0.04 [facility] Comment on above: Performed By: #### L [id number] ####[facility] ([facility])[address] [place] [address] URINALYSIS WITH MICROSCOPICo n 08-15-2024 BILIRUBIN, TOTAL PRESENCE IN URINE Negative Normal Negative [facility] Comment on above: Performed By: #### L [id number] ####[facility] ([facility])[address] [place] [address] Clarity (U) Clear Normal Clear [facility] Comment on above: Performed By: #### L [id number] ####[facility] ([facility])[address] [place] [address] Color (U) Colorless Normal Colorless, Yellow, Light-Yellow [facility] Comment on above: Performed By: #### L [id number] ####[facility] (BEAKER)[address] [place] [address] GLUCOSE (MG/DL) IN URINE Normal Normal Normal [facility] Comment on above: Performed By: #### L [id number] ####[facility] (BEAKER)[address] [place] [address] HEMOGLOBIN PRESENCE IN URINE Small Abnormal Negative [facility] Comment on above: Performed By: #### L [id number] ####[facility] (BEAKER)[address] [place] [address] Ketones Ql (U) Negative Normal Negative [facility] Comment on above: Performed By: #### L [id number] ####[facility] ([facility])[address] [place] [address] LEUKOCYTE ESTERASE PRESENCE IN URINE BY TEST STRIP Negative Normal Negative [facility] Comment on above: Performed By: #### L [id number] ####[facility] ([facility])[address] [place] [address] MUCUS (#/LPF) IN URINE SEDIMENT Occasional Normal None Seen, Occasional, Few [facility] Comment on above: Performed By: #### L [id number] ####[facility] (BEAKER)[address] [place] [address] NITRITE PRESENCE IN URINE Negative Normal Negative [facility] Comment on above: Performed By: #### L [id number] ####[facility] (BEAKER)[address] [place] [address] pH (U) 5.5 [pH] Normal 5.0-8.0 [facility] Comment on above: Performed By: #### L [id number] ####[facility] (BEAKER)[address] [place] [address] Protein (U) [Mass/Vol] Negative Normal [facility] on above: Performed By: #### L [id number] ####[facility] (BEAKER)[address] [place] [address] RBC (#/HPF) IN URINE SEDIMENT 11-20 Abnormal None Seen, 0-2 [facility] Comment on above: Performed By: #### L [id number] ####[facility] (BEAKER)[address] [place] [address] Specific gravity (U) [Rel density] 1.011 Normal 1.010-1.030 [facility] Comment on above: Performed By: #### L [id number] ####[facility] ([facility] [place] [address] SQUAMOUS EPITHELIAL CELLS (#/LPF) IN URINE SEDIMENT None Seen Normal None Seen, Occasional, Few [facility] Comment on above: Performed By: #### L [id number] ####[facility] (BEAKER)[address] [place] [address] UROBILINOGEN (MG/DL) IN URINE Normal Normal Normal [facility] Comment on above: Performed By: #### L [id number] ####[facility] ([facility])[address] [place] [address] WBC (LEUKOCYTE) (#/HPF) IN URINE SEDIMENT 3-5 Abnormal None Seen, 0-2 [facility] Comment on above: Performed By: #### L [id number] ####[facility] ([facility] [place] [address] Basophils Auto (Bld) [#/Vol] on 08-14-2024 Basophils (Bld) [#/Vol] Automated basophil count 0.0-0.1 [facility] Basophils/100 WBC Auto (Bld) on 08-14-2024 Basophils/100 WBC (Bld) Automated basophil % 0.2-2.0 [facility] Eosinophils/100 WBC Auto (Bl d)on 08-14-2024 Eosinophils/100 WBC (Bld) Automated eosinophil % Low 0.9-7.0 [facility] Erythrocyte distribution wid th Auto (RBC) [Ratio]on 08-14-2024 Erythrocyte distribution width (RBC) [Ratio] Erythrocyte distribution width [Ratio] by Automated count High 11.0-15.0 [facility] Estimated glomerular filtrat ion rate (GFR) non- Americanon 08-14-2024 GFR/1.73 sq M.predicted among non-blacks MDRD (S/P/Bld) [Vol rate/Area] Estimated glomerular filtration rate (GFR) non- Low >=60 mL/min/1.73m 2 [facility] Globulin Calc (S) [Mass/Vol] on 08-14-2024 Globulin (S) [Mass/Vol] Serum globulin measurement by calculation (mass/volume) [facility] Hematocrit Auto (Bld) [Volum e fraction]on 08-14-2024 Hematocrit (Bld) [Volume fraction] Hematocrit [Volume Fraction] of Blood by Automated count 42.0-54.0 [facility] Hemoglobin [Mass/volume] in Bloodon 08-14-2024 Hemoglobin (Bld) [Mass/Vol] Hemoglobin [Mass/volume] in Blood 14.0-18.0 [facility] Laboratory - Chemistry and C hemistry - challengeon 08-14-2024 HCO3 (Bld) [Moles/Vol] 30.8 mmol/L High 22.0-26.0 [facility] Albumin [Mass/Vol] 2.4 g/dL Low 3.4-5.0 [facility] ALP [Catalytic activity/Vol] 82 U/L 46-116 [facility] ALT [Catalytic activity/Vol] 39 U/L 16-63 [facility] AST [Catalytic activity/Vol] 24 U/L 15-37 [facility] Bilirubin [Mass/Vol] 1.1 mg/dL High 0.2-1.0 [facility] Calcium [Mass/Vol] 8.6 mg/dL 8.5-10.1 [facility] Chloride [Moles/Vol] 102 mmol/L 98-107 [facility] CO2 [Moles/Vol] 32.4 mmol/L High 21.0-32.0 [facility] Creatinine [Mass/Vol] 1.64 mg/dL High 0.70-1.30 [facility] GFR/1.73 sq M.predicted MDRD (S/P/Bld) [Vol rate/Area] 51 mL/min/{1.73_m2} Low >=60 mL/min/1.73m 2 [facility] Glucose [Mass/Vol] 194 mg/dL High 74-106 [facility] Potassium [Moles/Vol] 3.9 mmol/L 3.5-5.1 [facility] Protein [Mass/Vol] 5.8 g/dL Low 6.4-8.2 [facility] Sodium [Moles/Vol] 140 mmol/L 136-145 [facility] Urea nitrogen [Mass/Vol] 54.0 mg/dL High 7.0-18.0 [facility] Urea nitrogen/Creatinine [Mass ratio] 32.9 mg/mg [facility] Laboratory - Hematology and Cell countson 08-14-2024 Immature granulocytes/100 WBC (Bld) 0.8 % High 0.0-0.5 [facility] Leukocytes [#/volume] correc beatris for nucleated erythrocytes in Blood by Automated counon 08-14-2024 WBC corrected for nucl RBC Auto (Bld) [#/Vol] Leukocytes [#/volume] corrected for nucleated erythrocytes in Blood by Automated coun 4.0-11.0 [facility] Lymphocytes Auto (Bld) [#/Vo l]on 08-14-2024 Lymphocytes (Bld) [#/Vol] Lymphocytes [#/volume] in Blood by Automated count Low 1.2-3.8 [facility] Lymphocytes/100 WBC Auto (Bl d)on 08-14-2024 Lymphocytes/100 WBC (Bld) Lymphocytes/100 leukocytes in Blood by Automated count Low 20.5-60.0 [facility] MCH Auto (RBC) [Entitic mass ]on 08-14-2024 MCH (RBC) [Entitic mass] MCH [Entitic mass] by Automated count 25.9-34.0 [facility] MCHC Auto (RBC) [Mass/Vol]on 08-14-2024 MCHC (RBC) [Mass/Vol] MCHC [Mass/volume] by Automated count 29.9-35.2 [facility] MCV Auto (RBC) [Entitic vol] on 08-14-2024 MCV (RBC) [Entitic vol] MCV [Entitic volume] by Automated count High 80.0-94.0 [facility] Monocytes Auto (Bld) [#/Vol] on 08-14-2024 Monocytes (Bld) [#/Vol] Automated blood monocyte count 0.3-0.8 [facility] Monocytes/100 WBC Auto (Bld) on 08-14-2024 Monocytes/100 WBC (Bld) Automated monocyte % 1.7-12.0 [facility] Neutrophils Auto (Bld) [#/Vo l]on 08-14-2024 Neutrophils (Bld) [#/Vol] Neutrophils [#/volume] in Blood by Automated count 1.4-6.5 [facility] Neutrophils/100 WBC Auto (Bl d)on 08-14-2024 Neutrophils/100 WBC (Bld) Automated neutrophil % High 43.0-75.0 [facility] No Panel Informationon 08-14 Avinash Test Positive POSITIVE [facility] Arterial Blood Base Excess 6.2 mmol/L High <2.0-2.0 [facility] Arterial Blood Oxygen Saturation 93.3 % [facility] Arterial Blood Partial Pressure CO2 48.3 mm[Hg] High 35.0-45.0 [facility] Arterial Blood Partial Pressure O2 62.0 mm[Hg] Low 80.0-100.0 [facility] Arterial Blood pH 7.413 7.350-7.450 [facility] Blood Gas PEEP +8 [facility] Blood Gas Sample Site RIGHT RADIAL F [facility] Blood Gas Set Respiration Rate 22 [facility] Blood Gas Tidal Volume 600 Fi [facility] Blood Gas Ventilator Mode AC [facility] FiO2 100 % [facility] Oxygen Delivery Device VENT Fi [facility] Eosinophils # (Auto) 0.0 10 3/uL 0.0-0.7 [facility] Immature Granulocyte # (Auto) 0.05 10 3/uL High 0.00-0.03 [facility] Platelet mean volume Auto (B ld) [Entitic vol]on 08-14-2024 Platelet mean volume (Bld) [Entitic vol] Platelet mean volume [Entitic volume] in Blood by Automated count 9.5-13.5 [facility] Platelets Auto (Bld) [#/Vol] on 08-14-2024 Platelets (Bld) [#/Vol] Platelets [#/volume] in Blood by Automated count 150-450 [facility] RBC Auto (Bld) [#/Vol]on RBC (Bld) [#/Vol] Erythrocytes [#/volume] in Blood by Automated count 4.70-6.10 [facility] Serum or plasma albumin/glob ulin mass ratioon 08-14-2024 Albumin/Globulin [Mass ratio] Serum or plasma albumin/globulin mass ratio [facility] Serum or plasma anion gap de terminationon 08-14-2024 Anion gap [Moles/Vol] Serum or plasma an ion gap determination [facility] URINE CULTURE, ROUTINEon Bacteria identified Cx Nom (U) Urine Culture, Routine [facility] Healthcare Bacteria identified Cx Nom (U) No growth [facility] Bacteria identified Cx Nom (U) [facility]formed at: [facility] Bacteria identified Cx Nom (U) [address] [place] [phone] [facility] Bacteria identified Cx Nom (U) Grade Teacher: Tyron Saeed PhD, Phone: [phone] [facility] Basophils Auto (Bld) [#/Vol] on 04-08-2024 Basophils (Bld) [#/Vol] 0.1 10 3/uL 0.0-0.1 [facility] Basophils/100 WBC Auto (Bld) on 04-08-2024 Basophils/100 WBC (Bld) 0.4 % 0.2-2.0 [facility] Eosinophils/100 WBC Auto (Bl d)on 04-08-2024 Eosinophils/100 WBC (Bld) 1.7 % 0.9-7.0 [facility] Erythrocyte distribution wid th Auto (RBC) [Ratio]on 04-08-2024 Erythrocyte distribution width (RBC) [Ratio] 13.9 % 11.0-15.0 [facility] Estimated glomerular filtrat ion rate (GFR) non- Americanon 04-08-2024 GFR/1.73 sq M.predicted among non-blacks MDRD (S/P/Bld) [Vol rate/Area] mL/min/{1.73_m2} >=60 [facility] Hematocrit Auto (Bld) [Volum e fraction]on 04-08-2024 Hematocrit (Bld) [Volume fraction] 45.1 % 42.0-54.0 [facility] Hemoglobin [Mass/volume] in Bloodon 04-08-2024 Hemoglobin (Bld) [Mass/Vol] 14.7 g/dL 14.0-18.0 [facility] Kris 04-08-2024 L Specimen: [id number] Received: 04/09/24 Status: SOU Req Num: [id number] Spec Type: Surgical Subm Dr: Rc Curtis DPM, MS Tissues: A Extremity - Amputation, Non-Traumatic (R FOREFOOT) B Extremity - Amputation, Non-Traumatic (R FIRST METATARSEL) Procedures: HE/5, Gross/Micro L5/2, Decalcification/2 Age/ Patient Sex Location Account Attending Physician Tyler Mckinney W 63/M LABELL [id number] Rc Curtis DPM, MS SPEC NUM: [id number] RECD: 04/09/24 STATUS: [facility] REQ NUM: [id number] KATHIE: 04/08/[address]: Rc Curtis DPM, MS ENTERED: 04/09/[address] [facility] [address]: Ekta Heath SPEC TYPE: Surgical DEPT: ALEJANDRO JACOBS ENTERED BY: [id number] RECV BY: [id number] ORDERED: HE/5, Gross/Micro L5/2, Decalcification/2 ORDERED: HE/5, [...] central portion of the ulcerated lesion reveals -------- Specimen: [id number] Received: 04/09/24 Status: TAMI Colon Num: [id number] Spec Type: Surgical Subm Dr: Rc Curtis,DPM, MS Tissues: A Extremity - Amputation, Non-Traumatic (R FOREFOOT) B Extremity - Amputation, Non-Traumatic (R FIRST METATARSEL) Procedures: HE/5, Gross/Micro L5/2, Decalcification/2 -------- Patient: Tyler Mckinney [id number] (Continued) -------- Specimen: [id number] Received: 04/09/24 (Continued) Gross Description (Continued) Signed (signature on file) Genaro Zamora MD 04/19/24 1844 -------- Specimen: [id number] Received: 04/09/24 Status: TAMI Colon Num: [id number] Spec Type: Surgical Subm Dr: Rc Curtis,DPM, MS Tissues: A Extremity - Amputation, Non-Traumatic (R FOREFOOT) B Extremity - Amputation, Non-Traumatic (R FIRST METATARSEL) Procedures: HE/5, Gross/Micro L5/2, Decalcification/2 -------- Patient: Tyler Mckinney [id number] (Continued) -------- Specimen: [id number] Received: 04/09/24 (Continued) Gross Description (Continued) exposed bone. The lesion is abutting the soft tissue margin. The resection margin of the metatarsals are inked first blue, second green, third yellow, fourth orange, fifth red. Revival Clerk sections are as follows: A1 soft tissue margin en face A2 first metatarsal bone margin en face, (submitted in decal before routine processing) A3 remaining metatarsal bone margins en face, (submitted in decal before routine processing) A4 telecommunications sales representative section of the lesion with [...] performed supporting the above interpretation CPT Codes 05767 [id number] x2 -------- -------- Specimen: [id number] Received: 04/09/24 Status: TAMI Colon Num: [id number] Spec (more content not included)... Normal [facility] Laboratory - Chemistry and C hemistry - challengeon 04-08-2024 Calcium [Mass/Vol] 10.6 mg/dL High 8.5-10.1 [facility] Chloride [Moles/Vol] 98 mmol/L 98-107 [facility] CO2 [Moles/Vol] 34.6 mmol/L High 21.0-32.0 [facility] Creatinine [Mass/Vol] 1.03 mg/dL 0.70-1.30 [facility] GFR/1.73 sq M.predicted MDRD (S/P/Bld) [Vol rate/Area] mL/min/{1.73_m2} >=60 [facility] Glucose [Mass/Vol] 178 mg/dL High 74-106 [facility] Potassium [Moles/Vol] 4.4 mmol/L 3.5-5.1 [facility] Sodium [Moles/Vol] 135 mmol/L Low 136-145 [facility] Urea nitrogen [Mass/Vol] 16.0 mg/dL 7.0-18.0 [facility] Urea nitrogen/Creatinine [Mass ratio] 15.5 mg/mg [facility] Laboratory - Hematology and Cell countson 04-08-2024 Immature granulocytes/100 WBC (Bld) 1.1 % High 0.0-0.5 [facility] Leukocytes [#/volume] correc beatris for nucleated erythrocytes in Blood by Automated counon 04-08-2024 WBC corrected for nucl RBC Auto (Bld) [#/Vol] 13.3 10 3/uL High 4.0-11.0 [facility] Lymphocytes Auto (Bld) [#/Vo l]on 04-08-2024 Lymphocytes (Bld) [#/Vol] 1.7 10 3/uL 1.2-3.8 [facility] Lymphocytes/100 WBC Auto (Bl d)on 04-08-2024 Lymphocytes/100 WBC (Bld) 12.5 % Low 20.5-60.0 [facility] MCH Auto (RBC) [Entitic mass ]on 04-08-2024 MCH (RBC) [Entitic mass] 31.1 pg 25.9-34.0 [facility] MCHC Auto (RBC) [Mass/Vol]on 04-08-2024 MCHC (RBC) [Mass/Vol] 32.6 g/dL 29.9-35.2 [facility] MCV Auto (RBC) [Entitic vol] on 04-08-2024 MCV (RBC) [Entitic vol] 95.6 fL High 80.0-94.0 [facility] Monocytes Auto (Bld) [#/Vol] on 04-08-2024 Monocytes (Bld) [#/Vol] 1.0 10 3/uL High 0.3-0.8 [facility] Monocytes/100 WBC Auto (Bld) on 04-08-2024 Monocytes/100 WBC (Bld) 7.3 % 1.7-12.0 [facility] Neutrophils Auto (Bld) [#/Vo l]on 04-08-2024 Neutrophils (Bld) [#/Vol] 10.3 10 3/uL High 1.4-6.5 [facility] Neutrophils/100 WBC Auto (Bl d)on 04-08-2024 Neutrophils/100 WBC (Bld) 77.0 % High 43.0-75.0 [facility] No Panel InformationOrdered By: Rc Curtis on 04-08-2024 Acid Fast Smear [facility] AFB Specimen Processing [facility] Anaerobic Cult, Extended Incub [facility] Tissue Culture [facility] No Panel Informationon 04-08 Fungal Smear Result \R\ Fungus Stain [facility] Gram Stain Result 1 \R\ Gram Stain Result [facility] Miscellaneous Test Comment See comment [facility] Comment on above: Specimen Source: ELENA TRT - Foot Right - Foot Rt - 604.000 Eosinophils # (Auto) 0.2 10 3/uL 0.0-0.7 [facility] Immature Granulocyte # (Auto) 0.15 10 3/uL High 0.00-0.03 [facility] Platelet mean volume Auto (B ld) [Entitic vol]on 04-08-2024 Platelet mean volume (Bld) [Entitic vol] 9.8 fL 9.5-13.5 [facility] Platelets Auto (Bld) [#/Vol] on 04-08-2024 Platelets (Bld) [#/Vol] 482 10 3/uL High 150-450 [facility] RBC Auto (Bld) [#/Vol]on RBC (Bld) [#/Vol] 4.72 10 6/uL 4.70-6.10 [facility] Serum or plasma anion gap de terminationon 04-08-2024 Anion gap [Moles/Vol] 6.8 mmol/L [facility] ALL CBC WITH AUTO DIFFon BASOPHILS ABSOLUTE AUTO 0.1 [facility] Basophils/100 WBC (Bld) 0.6 % 0.2 - 2.0 % [facility] Eosinophils/100 WBC (Bld) 2.1 % 0.9 - 7.0 % [facility] Erythrocyte distribution width (RBC) [Ratio] 14.0 % 11.0 - 15.0 % [facility] Hematocrit (Bld) [Volume fraction] 41.9 % Low 42.0 - 54.0 % [facility] Hemoglobin (Bld) [Mass/Vol] 13.7 g/dL Low 14.0 - 18.0 g/dL [facility] IMMATURE GRANULOCYTES ABS AUTO 0.46 High [facility] Immature granulocytes/100 WBC (Bld) 2.9 % High 0.0 - 0.5 % [facility] Interpretation and review of laboratory results Abnormal [facility] LYMPHOCYTES ABSOLUTE AUTO 2.3 [facility] Lymphocytes/100 WBC (Bld) 14.7 % Low 20.5 - 60.0 % [facility] MCH (RBC) [Entitic mass] 31.5 pg 25.9 - 34.0 pg [facility] MCHC (RBC) [Mass/Vol] 32.7 g/dL 29.9 - 35.2 g/dL [facility] MCV (RBC) [Entitic vol] 96.3 fL High 80.0 - 94.0 fL [facility] MONOCYTES ABSOLUTE AUTO 1.2 High [facility] Monocytes/100 WBC (Bld) 7.8 % 1.7 - 12.0 % [facility] NEUTROPHILS ABSOLUTE AUTO 11.4 High [facility] Neutrophils/100 WBC (Bld) 71.9 % 43.0 - 75.0 % [facility] Platelet mean volume (Bld) [Entitic vol] 10.2 fL 9.5 - 13.5 fL [facility] TBH EO # 0.3 [facility] TBH PLT 475 High [facility] TB RBC 4.35 Low [facility] TBH WBC 15.8 High [facility] Kris 03-29-2024 L Specimen: [id number] Received: 03/29/246256 Status: [facility] Num: [id number] Spec Type: Surgical Subm Dr: Rc Curtis,DPM, MS Tissues: A Bone Fragments - Other than Path Fracture (R 1 METARSAL BONE) Procedures: HE, Gross/Micro L3, Decalcification Age/ Patient Sex Location Account Attending Physician Tyler Mckinney W 63/M LABELL [id number] Rc Curtis DPM, MS SPEC NUM: [id number] RECD: 03/29/24 STATUS: TAMI COLON NUM: [id number] KATHIE: 03/29/[address]: Rc Curtis DPM, MS ENTERED: 03/29/[address] [facility] [address]: Ekta Heath SPEC TYPE: Surgical DEPT: ALEJANDRO JACOBS ENTERED BY: [id number] RECV BY: [id number] ORDERED: HE, Gross/Micro L3, Decalcification ORDERED: HE, [...] examinations are performed supporting the above interpretation -------- Specimen: [id number] Received: 03/29/24 Status: TAMI Darlene Num: [id number] Spec Type: Surgical Subm Dr: Rc Curtis DPM, MS Tissues: A Bone Fragments - Other than Path Fracture (R 1 METARSAL BONE) Procedures: HE, Gross/Micro L3, Decalcification -------- Patient: Tyler Mckinney [id number] (Continued) -------- Specimen: [id number] Received: 03/29/24 (Continued) Signed (signature on file) Genaro Zamora MD 04/05/241707 -------- Specimen: [id number] Received: 03/29/24 Status: TAMI Colon Num: [id number] Spec Type: Surgical Subm Dr: Rc Curtis,DPM, MS Tissues: A Bone Fragments - Other than Path Fracture (R 1 METARSAL BONE) Procedures: DUNCAN, Gross/Micro L3, Decalcification -------- Patient: Tyler Mckinney [id number] (Continued) -------- Specimen: [id number] Received: 03/29/24 (Continued) CPT Codes 96535 95701 -------- -------- Specimen: [id number] Received: 03/29/24 Status: TAMI Colon Num: [id number] Spec Type: Surgical Subm Dr: Rc Curtis,DPShantell, MS Tissues: A Bone Fragments - Other than Path Fracture (R 1 METARSAL BONE) Procedures: DUNCAN, Gross/Micro L3, Decalcification -------- Patient: Tyler Mckinney [id number] (Continued) -------- Signed (signature on file) Genaro Zamora MD 04/05/24 1708 Normal [facility] XR FOOT LT [...] Sukhdev PARKS Date: 2022-07-14 23:08 Normal [facility] GLYCOHEMOGLOBIN A1Con 2021 ADA RECOMMENDATION SEE BELOW Normal [facility] Comment on above: Result Comment: ADA RECOMMENDED LIMIT 4.0 - 6.0 ADA THERAPEUTIC TARGET < 7.0 ACTION SUGGESTED > 7.0 Performed By: #### A 1C #### [facility] [address] [address] [address] Jennifer Zamora Glucose [Mass/Vol] 212 mg/dL Normal The [facility] Comment on above: Performed By: #### A 1C #### [facility] [address] [address] [address] Jennifer Zamora HbA1c (Bld) [Mass fraction] 9.0 % Critically high 4.5-6.2 [facility] Comment on above: Performed By: #### A 1C #### [facility] [address] [address] [address] Jennifer Zamora PROF 14(COMP METB)on 022 Albumin [Mass/Vol] 3.4 g/dL Normal 3.4-5.0 [facility] Comment on above: Performed By: #### C MP #### [facility] [address] [place] [address] Dr. Jennifer Zamora Albumin/Globulin [Mass ratio] 0.9 {ratio} Normal [facility] Comment on above: Performed By: #### C MP #### [facility] [address] [address] [address] Jennifer Zamora ALP [Catalytic activity/Vol] 108 U/L Normal 46-116 [facility] Comment on above: Performed By: #### C MP #### [facility] [address] [place] [address] Dr. Jennifer Zamora ALT [Catalytic activity/Vol] 35 U/L Normal 16-63 [facility] Comment on above: Performed By: #### C MP #### [facility] [address] [place] [address] Dr. Jennifer Zamora Anion gap [Moles/Vol] 7.0 mmol/L Normal [facility] Comment on above: Performed By: #### C MP #### [facility] [address] [place] [address] Dr. Jennifer Zamora AST [Catalytic activity/Vol] 11 U/L Critically low 15-37 [facility] Comment on above: Performed By: #### C MP #### [facility] [address] [place] [address] Dr. Jennifer Zamora Bilirubin [Mass/Vol] 0.7 mg/dL Normal 0.2-1.0 [facility] Comment on above: Performed By: #### C MP #### [facility] [address] [place] [address] Dr. Jennifer Zamora Calcium [Mass/Vol] 8.9 mg/dL Normal 8.5-10.[address] [facility] Comment on above: Performed By: #### C MP #### [facility] [address] [place] [address] Dr. Jennifer Zamora Chloride [Moles/Vol] 100 mmol/L Normal 98-107 [facility] Comment on above: Performed By: #### C MP #### [facility] [address] [address] [address] Jennifer Zamora CO2 [Moles/Vol] 32.5 mmol/L Critically high 21.0-32.0 [facility] Comment on above: Performed By: #### C MP #### [facility] [address] [address] [address] Jennifer Zamora Creatinine [Mass/Vol] 1.05 mg/dL Normal 0.70-1.30 [facility] Comment on above: Performed By: #### C MP #### [facility] [address] [address] [address] Jennifer Zamora EGFR-AF MARSHALLESE >60 Normal >=60 [facility] Comment on above: Performed By: #### C MP #### [facility] [address] [place] [address] Dr. Jennifer Zamora EGFR-NON AF MARSHALLESE >60 Normal >=60 [facility] Comment on above: Performed By: #### C MP #### [facility] [address] [address] [address] Jennifer Zamora Globulin (S) [Mass/Vol] 3.7 g/dL Normal [facility] Comment on above: Performed By: #### C MP #### [facility] [address] [place] [address] Dr. Jennifer Zamora Glucose [Mass/Vol] 175 mg/dL Critically high 74-[address] [facility] Comment on above: Performed By: #### C MP #### [facility] [address] [place] [address] Dr. Jennifer Zamora Potassium [Moles/Vol] 4.5 mmol/L Normal 3.5-5.1 [facility] Comment on above: Performed By: #### C MP #### [facility] [address] [address] [address] Jennifer Zamora Protein [Mass/Vol] 7.1 g/dL Normal 6.4-8.2 [facility] Comment on above: Performed By: #### C MP #### [facility] [address] [address] [address] Jennifer Zamora Sodium [Moles/Vol] 135 mmol/L Critically low 136-145 Th e [facility] Comment on above: Performed By: #### C MP #### [facility] [address] [address] [address] Jennifer Zamora Urea nitrogen [Mass/Vol] 18.0 mg/dL Normal 7.0-18.0 [facility] Comment on above: Performed By: #### C MP #### [facility] [address] [address] [address] Jennifer Zamora Urea nitrogen/Creatinine [Mass ratio] 17.1 mg/mg Normal [facility] Comment on above: Performed By: #### C MP #### [facility] [address] [address] [address] Jennifer Zamora Vital Signs Date Time Vital Sign Value Performing Clinician Faci lity 02-01-2025 14:090400 Body height 180.34 cm Dara Eisenberg APRN Work Phone: [facility] 02-01-2025 14:090400 Body mass index (BMI) [Ratio] 41.7 kg/m2 Dara Eisenberg APRN Work Phone: [facility] 02-01-2025 14:09-0400 Body temperature 96.5 [degF] Dara Eisenberg APRN Work Phone: [facility] 02-01-2025 14:09-0400 Body weight 135.62 kg Dara Eisenberg APRN Work Phone: [facility] 02-01-2025 14:09-0400 Diastolic blood pressure 68 mm[Hg] Dara Eisenberg APRN Work Phone: [facility] 02-01-2025 14:090400 Heart rate 102 /min Dara Eisenberg APRN Work Phone: [facility] 02-01-2025 14:09-0400 SaO2% (BldA) [Mass fraction] 96 % Dara Eisenberg APRN Work Phone: [facility] 02-01-2025 14:09-0400 Systolic blood pressure 114 mm[Hg] Dara Eisenberg APRN Work Phone: [facility] 11-05-2024 10:260400 Body height 180.34 cm [facility] 11-05-2024 10:260400 Body mass index (BMI) [Ratio] 44.7 kg/m2 [facility] 11-05-2024 10:260400 Body weight 145.6 kg [facility] 11-05-2024 10:26040 Diastolic blood pressure 68 mm[Hg] [facility] 11-05-2024 10:260400 Heart rate 98 /min [facility] 11-05-2024 10:0400 Respiratory rate 14 /min [facility] 11-05-2024 10:26-0400 SaO2% (BldA) [Mass fraction] 90 % [facility] 11-05-2024 10:26-0400 Systolic blood pressure 128 mm[Hg] [facility] 05-03-2024 14:14-0400 Body height 180.34 cm ROWDY Eisenberg Work Phone: [facility] 05-03-2024 14:14-0400 Body mass index (BMI) [Ratio] 39.3 kg/m2 SUBSURFACE AUGMENTEE ELINT OPERATORFauzia Eisenberg Work Phone: [facility] 05-03-2024 14:14-0400 Body temperature 96.9 [degF] ROWDY Eisenberg Work Phone: [facility] 05-03-2024 14:14-0400 Body weight 128 kg ROWDY Eisenberg Work Phone: [facility] 05-03-2024 14:14-0400 Diastolic blood pressure 86 mm[Hg] ROWDY Eisenberg Work Phone: [facility] 05-03-2024 14:14-0400 Heart rate 108 /min SUBSURFACE AUGMENTEE ELINT OPERATORFauzia Diamond Faina Work Phone: [facility] 05-03-2024 14:14-0400 SaO2% (BldA) [Mass fraction] 92 % SUBSURFACE AUGMENTEE ELINT OPERATORFauzia Diamond Faina Work Phone: [facility] 05-03-2024 14:14-0400 Systolic blood pressure 142 mm[Hg] SUBSURFACE AUGMENTEE ELINT OPERATORFauzia Diamond Faina Work Phone: [facility] 04-05-2024 13:44-0400 Body height 180.34 cm DPM Rc Curtis Work Phone: [facility] 04-05-2024 13:44-0400 Body mass index (BMI) [Ratio] 39.6 kg/m2 DPM Rc Curtis Work Phone: [facility] 04-05-2024 13:44-0400 Body temperature 97.4 [degF] DPM Rc Curtis Work Phone: [facility] 04-05-2024 13:44-0400 Body weight 128.82 kg DPM Rc Curtis Work Phone: [facility] 04-05-2024 13:44-0400 Diastolic blood pressure 70 mm[Hg] DPM Rc Curtis Work Phone: [facility] 04-05-2024 13:44-0400 Heart rate 61 /min DPM Rc Curtis Work Phone: [facility] 04-05-2024 13:44-0400 SaO2% (BldA) [Mass fraction] 87 % DPM Rc Curtis Work Phone: [facility] 04-05-2024 13:44-0400 Systolic blood pressure 134 mm[Hg] DPShantell Curtis Work Phone: [facility] Encounters Encounter Date Encounter Type Care Provider Facility Start: 02-15-2025 ambulatory Helen Justi Facility: [facility] Start: 02-01-2025 End: 02-01-2025 ambulatory Dara Eisenberg APRN Work Phone: [facility] Work Phone: Start: 02-01-2025 End: 02-01-2025 Patient encounter procedure Dara Eisenberg APRN [facility] Work Phone: Start: 01-27-2025 Non-patient / Non-visit Angelic Gen [facility] Work Phone: Start: 01-24-2025 End: 01-26-2025 Evaluation and management of inpatient Ghassan Zepeda Noahkinsey Facility[facility] Start: 01-24-2025 Emergency department patient visit Manuel Fletcher Facility:[facility] Start: 11-05-2024 End: 11-05-2024 ambulatory [facility] Work Phone: Start: 11-05-2024 End: 11-05-2024 Patient encounter procedure [facility] Work Phone: Start: 08-29-2024 Evaluation and management of inpatient MERRILL SAFI [facility] Start: 08-26-2024 Evaluation and management of inpatient BILL HORANI [facility] Start: 08-24-2024 Evaluation and management of inpatient PALOMO CADENCE [facility] Start: 08-24-2024 Evaluation and management of inpatient PALOMO CADENCE [facility] Start: 08-21-2024 [facility]: [facility] Start: 08-20-2024 Evaluation and management of inpatient RUDY [facility] Start: 08-20-2024 Evaluation and management of inpatient RUDY [facility] Start: 08-19-2024 Evaluation and management of inpatient RUDY [facility] Start: 08-17-2024 Evaluation and management of inpatient RUDY [facility] Start: 08-16-2024 Evaluation and management of inpatient RUDY [facility] Start: 08-16-2024 Evaluation and management of inpatient RUDY [facility] Start: 08-15-2024 Evaluation and management of inpatient HUGO PRAJAPATI [facility] Start: 08-15-2024 End: 09-09-2024 Evaluation and management of inpatient SHAIKH MONO [facility] Start: 08-15-2024 Non-patient / Non-visit [facility] Work Phone: Start: 08-14-2024 Non-patient / Non-visit [facility] Work Phone: Start: 08-10-2024 End: 08-12-2024 Clinisync Result Encounter Shaikh Mono JARRETT Work Phone: [facility] Unsolicited Start: 08-10-2024 End: 08-12-2024 Clinisync Result Encounter Shaikh Mono JARRETT Work Phone: [facility] Unsolicited Start: 05-03-2024 End: 05-03-2024 ambulatory ROWDY Eisenberg Work Phone: [facility] Work Phone: Start: 05-03-2024 End: 05-03-2024 Patient encounter procedure ROWDY Eisenberg Work Phone: [facility] Phys[facility] Work Phone: Start: 04-12-2024 End: 04-12-2024 ambulatory ROWDY Eisenberg Work Phone: [facility] Work Phone: Start: 04-12-2024 End: 04-12-2024 Patient encounter procedure ROWDY Eisenberg Work Phone: [facility] Physician [facility] Work Phone: Start: 04-08-2024 End: 04-08-2024 ambulatory SUBSURFACE AUGMENTEE ELINT OPERATORFauzia Diamond Faina Work Phone: [facility] Work Phone: Start: 04-08-2024 End: 04-08-2024 Departed Referred RODWY Diamond Faina Work Phone: [facility] Start: 04-08-2024 Non-patient / Non-visit SUBSURFACE AUGMENTEE ELINT OPERATORFauzia Diamond Faina Work Phone: [facility] Physician [facility] Work Phone: Start: 04-05-2024 End: 04-05-2024 Clinisync Result Encounter Shaikh Mono JARRETT Work Phone: [facility] Unsolicited Start: 04-05-2024 End: 04-05-2024 Clinisync Result Encounter Shaikh Mono JARRETT Work Phone: [facility] Unsolicited Start: 04-05-2024 End: 04-05-2024 ambulatory DPM Rc Curtis Work Phone: [facility] Work Phone: Start: 04-05-2024 End: 04-05-2024 Patient encounter procedure DPM Rc Curtis Work Phone: [facility] Physician [facility] Work Phone: Start: 03-29-2024 End: 03-29-2024 [facility] Work Phone: Start: 03-29-2024 End: 03-29-2024 Departed Referred DPM Rc Curtis Work Phone: [facility] Start: 01-26-2024 Non-patient / Non-visit DPM Rc Curtis Work Phone: [facility] Work Phone: Start: 07-14-2022 End: 07-15-[address] EDELMIRA SANTILLAN Facility:[facility] Start: 05-13-2022 End: 05-14-[address] MADELEINE MARCELINO Facility:[facility] Procedures Date Procedure Procedure Detail Performing Clinician Start: 08-10-2024 Bacteria identified in Urine by Culture Shaikh Mono JARRETT Work Phone: Start: 04-08-2024 Acid Fast Smear SUBSURFACE AUGMENTEE ELINT OPERATOR Elmer Eisenberg Work Phone: Start: 04-08-2024 AFB Specimen Processing ROWDY Eisenberg Work Phone: Start: 04-08-2024 Anaerobic Cult, Extended Incub ROWDY Eisenberg Work Phone: Start: 04-08-2024 Tissue Culture ROWDY Eisenberg Work Phone: Start: 04-05-2024 ALL CBC WITH AUTO DIFF Shaikh Mono JARRETT Work Phone: History of amputatio n of foot Status post partial amputation of right foot History of amputatio n of foot Status post partial amputation of right foot Dara Eisenberg APRN, CNP Plan of Treatment Date Care Activity Detail Author Start: 04-08-2024 Acid Fast Culture Acid Fast Culture [facility] Payers Date Payer Category Payer Private Health Insurance [id number] 2024 Self-pay 2024 Medicare [id number] 1961 Self-pay [id number] 1961 Unknown [id number] 1959 Unknown [id number] 1958 Unknown [id number] .593 1958 Unknown [id number] 2.16.840.1.583312.3.579.2 .593 1958 Unknown [id number] 2.16.840.1.183377.3.579.2 .727 1958 Unknown [id number] 2.16.840.1.147662.3.579.2 .727 1958 Unknown [id number] 2.16.840.1.360687.3.579.2 .727 1958 Unknown [id number] 2.16.840.1.808339.3.579.2 .727 1958 Unknown [id number] 2.16.840.1.161708.3.579.2 .72 1958 Unknown [id number] 2.16.840.1.364370.3.579.2 .72 1958 Unknown [id number] 2.16.840.1.814886.3.579.2 .72 1958 Unknown [id number] 2.16.840.1.487960.3.579.2 .72 1958 Unknown [id number] 2.16.840.1.814617.3.579.2 .727 Medicare [employer] [employer] [id number] Private Health Insurance [facility] [id number] Unknown [id number] 2.16.840.1.824399.3.579.2 .531 Unknown Regular Insurance [id number] Social History Date Type Detail Facility Tobacco smoking status [facility] Unknown if ever smoked [facility] Work Phone: Start: 1960 Sex Assigned At Male F [facility] Start: 04-05-2024 Tobacco smoking status NHIS Smoker (finding) [facility] Tobacco smoking status [facility] Tobacco smoking consumption unknown [facility] Start: 1960 Sex assigned at Not on file [facility] Gender identity Not on file [facility] Health are Start: 11-05-2024 Sex Male (finding) [facility] Start: 04-05-2024 Tobacco smoking status TNIS Smokes tobacco daily (finding) [facility] Medical Equipment Procedure Code Equipment Code Equipment Origin al Text Equipment Identifier Dates Blood Sugar Diagnostic strip Start: 04-28-2024 Blood Sugar Diagnostic strip Start: 04-28-2024 End: 04-28-2024 Blood Sugar Diagnostic strip Start: 04-28-2024 Blood Sugar Diagnostic strip Start: 04-28-2024 End: 04-28-2024 Clinical Notes 08-16-2024 to 01-31-2025 Note Date & Type Note Facility 01-31-2025 Note Microbiology PROCEDURE: Blood Culture Charcoal [R1] SOURCE: Blood BODY SITE: Hand L COLLECTED DATE/TIME: 01/24/2025 17:12 EDT RECEIVED DATE/TIME: 01/24/2025 17:31 EDT START DATE/TIME: 01/24/2025 17:31 EDT FREE TEXT SOURCE: Ghassan Ding III, DO, III, DO, Ghassan Zepeda FINAL REPORTS Final Report [] Verified Date/Time: 01/31/2025 18:00 EDT No growth at 7 days. Performing Locations R1: This test was performed at: [facility], [address] [place] [address], [facility] , , [facility] Comment on above: Performed By: #### 1 [id number] #### [facility] [address] [place] [id number] 01-31-2025 Note Microbiology PROCEDURE: Blood Culture Charcoal [R1] SOURCE: Blood BODY SITE: Arm R COLLECTED DATE/TIME: 01/24/2025 17:07 EDT RECEIVED DATE/TIME: 01/24/2025 17:31 EDT START DATE/TIME: 01/24/2025 17:31 EDT FREE TEXT SOURCE: Timur MARCELO DO, Ghassan Ding III, DO, Ghassan Zepeda FINAL REPORTS Final Report [] Verified Date/Time: 01/31/2025 18:00 EDT No growth at 7 days. Performing Locations R1: This test was performed at: [facility], [address] [place] [address], [id number] , [place], [facility] Comment on above: Performed By: #### [id number] #### [facility] [address] [place] [id number] 01-26-2025 Note Patient Education - Text Atrial Fibrillation Atrial fibrillation (AFib) is a type of irregular or rapid heartbeat (arrhythmia). In AFib, the top part of the heart (atria) beats in an irregular pattern. This makes the heart unable to pump blood normally and effectively. The goal of treatment is to prevent blood clots from forming, control your heart rate, or restore your heartbeat to a normal rhythm. If this condition is not treated, it can cause serious problems, such as a weakened heart muscle (cardiomyopathy) or a stroke. What are the causes? This condition is often caused by medical conditions that damage the heart's electrical system. These include: ??? High blood pressure (hypertension). This is the most common cause. ??? Certain heart problems or conditions, such as heart failure, coronary artery disease, heart valve problems, or heart surgery. ??? Diabetes. ??? Overactive thyroid (hyperthyroidism). ??? Chronic kidney disease. ??? Certain lung conditions, such as emphysema, pneumonia, or COPD. ??? Obstructive sleep apnea. In some cases, the cause of this condition is not known. What increases the risk? This condition is more likely to develop in: ??? Older adults. ??? Athletes who do endurance exercise. ??? People who have a family history of AFib. ??? Males. ??? People who are . ??? People who are obese. ??? People who smoke or misuse alcohol. What are the signs or symptoms? Symptoms of this condition include: ??? Fast or irregular heartbeats (palpitations). ??? Discomfort or pain in your chest. ??? Shortness of breath. ??? Sudden light-headedness or weakness. ??? Tiring easily during exercise or activity. ??? Syncope (fainting). ??? Sweating. In some cases, there are no symptoms. How is this diagnosed? Your health care provider may detect AFib when taking your pulse. If detected, this condition may be diagnosed with: ??? An electrocardiogram (ECG) to check electrical signals of the heart. ??? An ambulatory ekg monitor tech to record your heart's activity for a few days. ??? A transthoracic echocardiogram (TTE) to create pictures of your heart. ??? A transesophageal echocardiogram (SHINE) to create even clearer pictures of your heart. ??? A stress test to check your blood supply while you exercise. ??? Imaging tests, such as a CT scan or chest X-ray. ??? Blood tests. How is this treated? Treatment depends on underlying conditions and how you feel when you get AFib. This condition may be treated with: ??? Medicines to prevent blood clots or to treat heart rate or heart rhythm problems. ??? Electrical cardioversion to reset the heart's rhythm. ??? A pacemaker to correct abnormal heart rhythm. ??? Ablation to remove the heart tissue that sends abnormal signals. ??? Left atrial appendage closure to seal the area where blood clots can form. In some cases, underlying conditions will be treated. Follow these instructions at home: Medicines ??? Take over-the counter and prescription medicines only as told by your provider. ??? Do not take any new medicines without talking to your provider. ??? If you are taking blood thinners: ? Talk with your provider before taking aspirin or NSAIDs. These medicines can raise your risk of bleeding. ? Take your medicines as told. Take them at the same time each day. ? Do not do things that could hurt or bruise you. Be careful to avoid falls. ? Wear an alert bracelet or carry a card that says that you take blood thinners. Lifestyle ??? Do not use any products that contain nicotine or tobacco. These products include cigarettes, chewing tobacco, and vaping devices, such as e-cigarettes. If you need help quitting, ask your provider. ??? Eat heart-healthy foods. Talk with a food expert (dietitian) to make an eating plan that is right for you. ??? Exercise regularly as told by your provider. ??? Do not drink alcohol. ??? Lose weight if you are overweight. General instructions ??? If you have obstructive sleep apnea, manage your condition as told by your provider. ??? Do not use diet pills unless your provider approves. Diet pills can make heart problems worse. ??? Keep all follow-up visits. Your provider will want to check your heart rate and rhythm regularly. Contact a health care provider if: ??? You notice a change in the rate, rhythm, or strength of your heartbeat. ??? You are taking a blood thinner and you notice more bruising. ??? You tire more easily when you exercise or do heavy work. ??? You have a sudden change in weight. Get help right away if: ??? You have chest pain. ??? You have trouble breathing. ??? You have side effects of blood thinners, such as blood in your vomit, poop (stool), or pee (urine), or bleeding that does not stop. ??? You have any symptoms of a stroke. BE FAST is an easy way to remember the main warning signs of a (more content not included)... [facility] 01-26-2025 Note Discharge Summary Admission and Discharge Information Admit Date/Time:01/24/2025 18:23 Admitting Physician - Ghassan Ding III, DO Consulting Physician - Valentin Mckeon DPM Admitting Diagnoses: Discharge Order Date Discharge Patient - Ordered -- 01/26/25 16:02:00 EDT Discharge Diagnoses 1. Severe sepsis, 01/24/2025 2. Cellulitis of leg, 01/24/2025 3. KRISTINE (acute kidney injury), 01/24/2025 4. Atrial fibrillation with RVR, 01/24/2025 5. 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, 01/24/2025 6. Hyponatremia, 01/24/2025 7. Noncompliance with medications, 01/24/2025 8. Insulin dependent type 2 diabetes mellitus, 01/24/2025 retirement (current) use of insulin, 01/24/2025 Medical problem - major, 01/24/2025 Hospital Course The patient is a 64-year-old male with past medical history of HFrEF (EF 20 to 25%), A-fib, COPD/obesity hypoventilation syndrome with chronic hypoxic respiratory failure on 4 L oxygen nasal cannula at baseline, HTN, Left TMA, Chronic LE wounds, chronic B/L LE venous stasis dermatitis, insulin-dependent type 2 diabetes, history of MRSA pneumonia requiring intubation (August 2024), medication noncompliance, poor historian, and obesity who [facility] with chief complaint of varicose vein bleeding on right lower extremity and admitted with sepsis secondary to bilateral lower extremity cellulitis with associated KRISTINE and urinary retention. Brunson was placed in the ER. Patient was started on vancomycin. Podiatry was consulted. Patient had been completely noncompliant with his insulin regimen for some time. He also has A-fib and was noncompliant with Eliquis because it was too expensive. Pharmacy was consulted for warfarin management and he was started on warfarin while inpatient. He was restarted on insulin. Multiple discussions were had with the patient about the importance of compliance with at least some form of insulin/glucose control regimen. Patient was insistent on trying an [id number] supplement that he stated would cure diabetes and I had multiple discussions with him regarding this and encouraged him to comply with insulin to some degree. I educated patient that his wounds would not heal properly if he had continuously uncontrolled glucose. I counseled him on potential side effects of long-term poorly controlled diabetes. KRISTINE improved with Brunson IV fluids and antibiotics. Elevated WBC count resolved. Blood cultures negative. Patient was very eager to discharge home. Patient restarted on 30 units of glargine daily and his glucose had gone from 400s on admission to averaging in the 200s with the addition of this alone. Seen by podiatry who dressed his wounds and recommended continued follow-up with [place] [facility] where he receives care. Patient successfully passed a voiding trial and was voiding easily after removal of Brunson. Creatinine had improved from 1.4-0.8 on discharge. Medically stable for discharge home on 01/26/2025. Follow-up PCP in 7 to 10 days Continued care at [place] [facility] Referral sent to Dr. Rosen in [place] for endocrinology follow-up for better glucose control. Discussed this with patient and he was agreeable. Follow-up with [facility] anticoagulation clinic Medication changes Continue metoprolol Continue gabapentin Added warfarin. Bridged with Lovenox while inpatient. Restart insulin glargine 30 units daily in the morning. Prescribed pen needles. Patient states that he had lancets, glucometer, and glucose test strips. Oxycodone 5 mg p.o. every 8 hours as needed for pain x 5 days dispense 15 tabs. Services Consulted - Completed -- 01/24/25 20:11:27 EDT Consult to Environmental Health Physician (Environmental Health Physician Consult) - Ordered -- 01/24/25 20:22:00 EDT, B/L LE wounds, stasis dermatitis, cellulitis in setting of sepsis, Consult and Co-manage Physical Exam Vitals & Measurements T: 36.7 ???C(Oral) TMIN: 36.4 ???C(Oral) TMAX: 36.7 ???C(Oral) HR: 87(Monitored) RR: 16 BP: 114/70 SpO2: 94% WT: 126.3 kg General: alert, no acute distress, appears unkempt, conversational Skin: warm, dry Head: no trauma, normocephalic Neck: Trachea midline, no adenopathy, no tenderness Eye: normal conjunctiva, sclera clear ENMT: Normal oropharynx Cardiovascular: Irregularly irregular rhythm, mild tachycardia, no murmur, normal peripheral perfusion Respiratory: Lungs diminished to auscultation bilaterally, no wheeze, rales, rhonchi respirations non labored Chest wall: no deformity. Gastrointestinal: soft, non distended, no tenderness, no guarding. Back: No tenderness, Normal ROM, Normal alignment. Extremities: no deformity, no trauma. Well-healed right TMA. Multiple left toe ulcerations (mild and superficial). Severe stasis dermatitis with weeping and multiple small wounds on bilateral lower extremities. Neurological: oriented x 4, LOC appropriate for age, CN II-XII intact, motor strength equal & normal bilaterally, sensation equal & normal b (more content not included)... [facility] Comment on above: Result Comment: Elec tronically Signed By: Ghassan Ding III, DO\.marco\Date and Time Signed: 01/26/25 16:13 EDT 01-26-2025 Note Patient Education - Text Atrial Fibrillation Atrial fibrillation (AFib) is a type of irregular or rapid heartbeat (arrhythmia). In AFib, the top part of the heart (atria) beats in an irregular pattern. This makes the heart unable to pump blood normally and effectively. The goal of treatment is to prevent blood clots from forming, control your heart rate, or restore your heartbeat to a normal rhythm. If this condition is not treated, it can cause serious problems, such as a weakened heart muscle (cardiomyopathy) or a stroke. What are the causes? This condition is often caused by medical conditions that damage the heart's electrical system. These include: ??? High blood pressure (hypertension). This is the most common cause. ??? Certain heart problems or conditions, such as heart failure, coronary artery disease, heart valve problems, or heart surgery. ??? Diabetes. ??? Overactive thyroid (hyperthyroidism). ??? Chronic kidney disease. ??? Certain lung conditions, such as emphysema, pneumonia, or COPD. ??? Obstructive sleep apnea. In some cases, the cause of this condition is not known. What increases the risk? This condition is more likely to develop in: ??? Older adults. ??? Athletes who do endurance exercise. ??? People who have a family history of AFib. ??? Males. ??? People who are . ??? People who are obese. ??? People who smoke or misuse alcohol. What are the signs or symptoms? Symptoms of this condition include: ??? Fast or irregular heartbeats (palpitations). ??? Discomfort or pain in your chest. ??? Shortness of breath. ??? Sudden light-headedness or weakness. ??? Tiring easily during exercise or activity. ??? Syncope (fainting). ??? Sweating. In some cases, there are no symptoms. How is this diagnosed? Your health care provider may detect AFib when taking your pulse. If detected, this condition may be diagnosed with: ??? An electrocardiogram (ECG) to check electrical signals of the heart. ??? An ambulatory ekg monitor tech to record your heart's activity for a few days. ??? A transthoracic echocardiogram (TTE) to create pictures of your heart. ??? A transesophageal echocardiogram (SHINE) to create even clearer pictures of your heart. ??? A stress test to check your blood supply while you exercise. ??? Imaging tests, such as a CT scan or chest X-ray. ??? Blood tests. How is this treated? Treatment depends on underlying conditions and how you feel when you get AFib. This condition may be treated with: ??? Medicines to prevent blood clots or to treat heart rate or heart rhythm problems. ??? Electrical cardioversion to reset the heart's rhythm. ??? A pacemaker to correct abnormal heart rhythm. ??? Ablation to remove the heart tissue that sends abnormal signals. ??? Left atrial appendage closure to seal the area where blood clots can form. In some cases, underlying conditions will be treated. Follow these instructions at home: Medicines ??? Take over-the counter and prescription medicines only as told by your provider. ??? Do not take any new medicines without talking to your provider. ??? If you are taking blood thinners: ? Talk with your provider before taking aspirin or NSAIDs. These medicines can raise your risk of bleeding. ? Take your medicines as told. Take them at the same time each day. ? Do not do things that could hurt or bruise you. Be careful to avoid falls. ? Wear an alert bracelet or carry a card that says that you take blood thinners. Lifestyle ??? Do not use any products that contain nicotine or tobacco. These products include cigarettes, chewing tobacco, and vaping devices, such as e-cigarettes. If you need help quitting, ask your provider. ??? Eat heart-healthy foods. Talk with a food expert (dietitian) to make an eating plan that is right for you. ??? Exercise regularly as told by your provider. ??? Do not drink alcohol. ??? Lose weight if you are overweight. General instructions ??? If you have obstructive sleep apnea, manage your condition as told by your provider. ??? Do not use diet pills unless your provider approves. Diet pills can make heart problems worse. ??? Keep all follow-up visits. Your provider will want to check your heart rate and rhythm regularly. Contact a health care provider if: ??? You notice a change in the rate, rhythm, or strength of your heartbeat. ??? You are taking a blood thinner and you notice more bruising. ??? You tire more easily when you exercise or do heavy work. ??? You have a sudden change in weight. Get help right away if: ??? You have chest pain. ??? You have trouble breathing. ??? You have side effects of blood thinners, such as blood in your vomit, poop (stool), or pee (urine), or bleeding that does not stop. ??? You have any symptoms of a stroke. BE FAST is an easy way to remember the main warning signs of a (more content not included)... [facility] 01-26-2025 Note Progress Note - Matt devi Pharmacy to Dose Warfarin Indication for warfarin use: afib Target INR: 2-3 Hospitalist: Timur On warfarin prior to admission? No Home Regimen: n/a, new start INR Value/Dose Given: 01/24: INR 1.03, 5 mg 01/25: INR 1.00, 5 mg 01/26: INR 0.97 Scheduled for today: 10 mg Other Comments: 01/26: INR remains essentially unchanged. Will dose at 10 mg today (day 3) per protocol. 01/25: Repeat 5 mg for today. Expect INR to begin trending up 01/24: Pt reported that he was on a blood thinner, but he is not sure of which one. Nothing comes up in outside records or external fill. Will treat as new start. Spoke with Dr. Ding - he is ordering a lovenox bridge Discharge Plan; TBD Please contact Pharmacy at ext. [phone] if there are any questions. [facility] 01-25-2025 Note Interdisciplinary No te - OT Pt is seen for OT evaluation. AMPA score: 16/24. Pt is agreeable only to sitting EOB, no further transfers or mobility and becomes very agitated due to BLE pain. Pt is below functional baseline for ADL performance. OT to follow for treatment. Recommending HH vs SNF at this time pending progress with treatment. [facility] 01-25-2025 Note Progress Note-Physic janae Assessment/Plan 01/25 - WBC count downtrending with vancomycin. Creatinine downtrending with placement of Brunson catheter. Hyponatremia improved. A1c is 12.6. Uptitrating insulin for better glycemic control. Goal less than 180. 1. Severe sepsis (R65.20: Severe sepsis without septic shock) Patient has evidence of dysregulated immune response SIRS positive: Elevated WBC count greater than 12,000, tachycardia greater than 90 Source: Lower extremity cellulitis Endorgan dysfunction: KRISTINE Given vancomycin for cellulitis to cover for MRSA as he has a history of MRSA. Blood cultures checked - pending Given 2 L sepsis bolus for ideal body weight. Avoiding full 2.25 L bolus or bolusing for current body weight because of history of HFrEF. Ordered: Basic Metabolic Panel CBC w/ Auto Diff CBC w/ Auto Diff Comprehensive Metabolic Panel eGFR Home Health Orders Initial Hospital Care/Day Moderate 55 Minutes [id number] Sbsq Hospital Care/Day Moderate 35 Minutes 13317 2. Cellulitis of leg (L03.119: Cellulitis of unspecified part of limb) Management per #1. Podiatry consult pending Ordered: Home Health Orders 3. KRISTINE (acute kidney injury) (N17.9: Acute kidney failure, unspecified) Suspect prerenal and acute retention. Improving with fluid challenge/bolus and brunson placement 01/24 Patient had a tourniquet on for less than 1 hour via EMS in transit. CK negative. No rhabdo Ordered: Home Health Orders 4. Atrial fibrillation with RVR (I48.91: Unspecified atrial fibrillation) Rate controlled under 120 bpm. BP and HR improved with IV fluids and antibiotics. Restarted home metoprolol tartrate 50mg PO BID. Monitoring on telemetry. Patient noncompliant with anticoagulation. [id number] score is 4. Reports that Eliquis dose too expensive. INR is 1 currently. Started on warfarin. Pharmacy consult for warfarin management. Bridged with weight-based Lovenox pending echo to see if this is valvular versus nonvalvular A-fib. If nonvalvular A-fib can consider not bridging with Lovenox. Ordered: warfarin, Pharmacy to dose, Tab, Oral, As Directed for 100 day(s), Stop date 05/04/25 16:06:00 EDT, Routine, Start date 01/24/25 16:07:00 EDT 5. 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 (I83.891: Varicose veins of right lower extremity with other complications) Hemostasis achieved in ER. 6. Hyponatremia (E87.1: Hypo-osmolality and hyponatremia) Baseline sodium 137. Sodium when corrected for hyperglycemia is 133 on admit Stable/improving 7. Noncompliance with medications (Z91.148: Patient's other noncompliance with medication regimen for other reason) Patient is poor historian. Noncompliant with anticoagulation despite elevated stroke risk. Patient was unaware of diagnosis of A-fib despite clear documentation from previous admission in [place] in August 2024. Reports that he stopped taking all of his diabetes medications. 8. Insulin dependent type 2 diabetes mellitus (E11.9: Type 2 diabetes mellitus without complications) A1c: 12.6 BGT ACHS with sliding scale insulin as needed Lantus 30 units nightly at home. Patient noncompliant. Tolerated 20units QHS 01/24, uptitrate to 30 units today. Goal glucose will be less than 180. 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) Orders: acetaminophen, 975 mg = 3 tab(s), Tab, Oral, q8hr, Routine, Start date 01/25/25 14:00:00 EDT, 01/25/25 13:24:00 EDT enoxaparin, 130 mg = 0.87 mL, Injection, SubCutaneous, BID for 30 day(s), Stop date 02/23/25 20:59:00 EDT, Routine, Start date 01/24/25 21:00:00 EDT glucose, 50 mL, Soln-IV, IV Push, Once PRN Blood glucose, Routine, Start date 01/24/25 20:23:00 EDT insulin glargine, 30 unit(s), Injection-Insulin, SubCutaneous, Bedtime, Routine, Start date 01/25/25 21:00:00 EDT, 01/25/25 13:25:00 EDT insulin lispro, 0-10 Unit(s), Injection-Insulin, SubCutaneous, QIDACHS, Routine, Start date 01/24/25 21:00:00 EDT metoprolol, 50 mg = 1 tab(s), Tab, Oral, BID, Routine, Start date 01/24/25 21:00:00 EDT, 01/24/25 20:24:00 EDT ondansetron, 4 mg = 2 mL, Injection, IV Push, q6hr PRN Nausea, Routine, Start date 01/24/25 20:21:00 EDT, 01/24/25 20:21:00 EDT oxycodone, 5 mg = 1 tab(s), Tab, Oral, q4hr PRN Pain for 5 day(s), Stop date 01/30/25 13:23:00 EDT, Routine, Start date 01/25/25 13:24:00 EDT, 01/25/25 13:24:00 EDT quetiapine, 50 mg = 2 tab(s), Tab, Oral, Bedtime, Routine, Start date 01/24/25 21:00:00 EDT, 01/24/25 20:28:00 EDT warfarin, 5 mg = 1 tab(s), Tab, Oral, Once, Stop date 01/25/25 18:00:00 EDT, Start date 01/25/25 18:00:00 EDT warfarin, 5 mg = 1 tab(s), Tab, Oral, Once, Stop date 01/24/25 18:00:00 EDT, Start date 01/24/25 18:00:00 EDT Activity As Tolerated Blood Culture Charcoal Blood Culture Charcoal Capillary Glucose POC Capillary Glucose POC Capillary Glucose POC Capillary Glucose POC Capillary Glucose POC Cardiac Monitoring Consult to Environmental Health Physician Creatine Kinase (more content not included)... [facility] Comment on above: Result Comment: Elec tronically Signed By: Ghassan Ding III, DO.br\Date and Time Signed: 01/25/25 13:28 EDT 01-25-2025 Note Consultation Note Patient: TYLER MCKINNEY Age: 64 years Sex: Male : 1960 Associated Diagnoses: None Author: Sina Mckeon DPM Subjective Chief complaint 01/24/2025 19:44 EDT right leg vericose vein burst in the shower 01/24/2025 11:31 EDT Pt has two tourniquets on lower rt extremity anywhere between 50 min to an hr per EMS. pt has hx varicose veins. one burst in shower. no fall. . A 64-year-old male chief complaint right lower extremity cellulitis. He has had a history of multiple ulcerations has a previous transmetatarsal amputation on the right performed by Dr. Kirsten Heath. Has multiple superficial ulcerations noted to bilateral lower extremities with cellulitis. Currently on antibiotics. Does deny fever chills nausea vomiting. He is an uncontrolled diabetic. Health Status Allergies: Allergic Reactions (Selected) No Known Medication Allergies, Allergies (1) Active Severity Reaction No Known Medication Allergies None Documented Current medications: (Selected) Inpatient Medications Ordered Dextrose 50% Soln-IV: 50 mL, Soln-IV, IV Push, Once PRN Blood glucose, Routine, Start date 01/24/25 20:23:00 EDT Insulin Lispro Sliding Scale: 0-10 Unit(s), Injection-Insulin, SubCutaneous, QIDACHS, Routine, Start date 01/24/25 21:00:00 EDT Metoprolol tartrate 50 mg Tab: 50 mg = 1 tab(s), Tab, Oral, BID, Routine, Start date 01/24/25 21:00:00 EDT, 01/24/25 20:24:00 EDT Percocet 5 mg-325 mg oral tablet: 1 tab(s), Tab, Oral, q4hr PRN Pain, Routine, Start date 01/24/25 22:33:00 EDT SEROquel 25 mg Tab: 50 mg = 2 tab(s), Tab, Oral, Bedtime, Routine, Start date 01/24/25 21:00:00 EDT, 01/24/25 20:28:00 EDT Zofran 4 mg/2 mL Injection: 4 mg = 2 mL, Injection, IV Push, q6hr PRN Nausea, Routine, Start date 01/24/25 20:21:00 EDT, 01/24/25 20:21:00 EDT acetaminophen 325 mg Tab: 975 mg = 3 tab(s), Tab, Oral, q8hr PRN Pain, Routine, Start date 01/24/25 20:21:00 EDT, 01/24/25 20:21:00 EDT enoxaparin Injection: 130 mg = 0.87 mL, Injection, SubCutaneous, BID for 30 day(s), Stop date 02/23/25 20:59:00 EDT, Routine, Start date 01/24/25 21:00:00 EDT insulin glargine 100 units/mL SubQ Stephanie 10 mL: 20 unit(s) = 0.2 mL, Injection-Insulin, SubCutaneous, Bedtime, Routine, Start date 01/24/25 21:00:00 EDT morphine 2 mg/mL Inj: 2 mg = 1 mL, Injection, IV Push, q6hr PRN Pain for 5 day(s), Stop date 01/29/25 22:05:00 EDT, Routine, Start date 01/24/25 22:06:00 EDT, 01/24/25 22:06:00 EDT warfarin PHARMACY TO DOSE: Pharmacy to dose, Tab, Oral, As Directed for 100 day(s), Stop date 05/04/25 16:06:00 EDT, Routine, Start date 01/24/25 16:07:00 EDT warfarin: 5 mg = 1 tab(s), Tab, Oral, Once, Stop date 01/25/25 18:00:00 EDT, Start date 01/25/25 18:00:00 EDT Problem list: All Problems Smoker / SNOMED CT 936353893 / Confirmed Added secondary to documentation in Social History. Tobacco use / SNOMED CT 5606879210 / Confirmed, Active Problems (2) Smoker Tobacco use Objective Measurements from flowsheet : Measurements 01/25/2025 5:00 EDT Weight Measured 126.3 kg 01/24/2025 19:44 EDT Height/Length Measured 182.88 cm Body Mass Index Measured 40.01 kg/m2 Weight Measured 133.8 kg 01/24/2025 19:29 EDT Height/Length Measured 182.88 cm BSA Measured 2.61 m2 Body Mass Index Measured 40.01 kg/m2 Weight Measured 133.8 kg 01/24/2025 11:31 EDT Height/Length Measured 180 cm Height/Length Dosing 180.0 cm Weight Dosing 135.0 kg Body Mass Index Measured 41.67 kg/m2 Weight Measured 135 kg Vital Signs (last 24 hrs) Last Charted Temp Oral 36.8 DegC (JAN 25:) Heart Rate Monitored 88 bpm (JAN 25:) Resp Rate 16 br/min (JAN 24 18:00) SBP 97 mmHg (JAN 25:) DBP 65 mmHg (JAN 25) Weight 126.3 kg (JAN 25 05:00) BMI 40.01 (JAN 24 19:44) General: Alert and oriented. Cardiovascular: Dorsalis pedis and posterior tibial pulses are palpable bilaterally. Lymphatics: No overt lymphadenopathy noted. Integumentary: Multiple superficial ulcerations to bilateral lower extremities. With edema and cellulitis noted. Wound does not probe or track to bone do not track into the subcutaneous tissue there is some weeping noted to bilateral lower extremities secondary to severe venous stasis disease.. Impression and Plan I educated the patient's severe cellulitis to bilateral lower extremities currently on IV antibiotics which appear to be helping. He does have significant weeping secondary to his venous stasis disease the wounds appear to be superficial in nature. I am recommending Betadine dressings to be applied daily in a wet-to-dry manner to help dry out his legs. He will follow-up as an outpatient with the wound center in [place]. [facility] Comment on above: Result Comment: Elec tronically Signed By: Linda GONZALEZ, Sina Cruz\.br\Date and Time Signed: 01/25/25 12:56 EDT 01-25-2025 Note Interdisciplinary No te - PT PT Evaluation done this date. Pt. with on AM-PAC this date. He requires supervision to CGAx1 with all activity. Uses w/c and FWW at baseline. Recommend home with home health PT. [facility] 01-25-2025 Note Progress Note - [facility] to Dose Warfarin Indication for warfarin use: afib Target INR: 2-3 Hospitalist: Timur On warfarin prior to admission? No Home Regimen: n/a, new start INR Value/Dose Given: 01/24: INR 1.03, 5 mg 01/25: INR 1.00 Scheduled for today: 5mg Other Comments: 01/25: Repeat 5 mg for today. Expect INR to begin trending up 01/24: Pt reported that he was on a blood thinner, but he is not sure of which one. Nothing comes up in outside records or external fill. Will treat as new start. Spoke with Dr. Ding - he is ordering a lovenox bridge Discharge Plan; TBD Please contact Pharmacy at ext. [phone] if there are any questions. [facility] 01-24-2025 Note History and Physical Basic Information Admit Date/Time:01/24/2025 18:23 Chief Complaint right leg vericose vein burst in the shower History of Present Illness The patient is a 64-year-old male with past medical history of HFrEF (EF 20 to 25%), A-fib, COPD/obesity hypoventilation syndrome with chronic hypoxic respiratory failure on 4 L oxygen nasal cannula at baseline, HTN, insulin-dependent type 2 diabetes, history of MRSA pneumonia requiring intubation (August 2024), medication noncompliance, poor historian, and obesity who [facility] with chief complaint of varicose vein bleeding on right lower extremity. Hemostasis was achieved in the field with application of 2 tourniquets that were in place for approximately 50 minutes to 1 hour per EMS. He had no further bleeding in the ER per discussion with MARY Jung. In the ER, patient was hemodynamically stable, however, did have 1 low pressure of 88/63 with associated tachycardia of 117 at that time. EKG showed A-fib with RVR. Patient was given 2 L of IV fluids. Patient had an elevated white blood cell count of 17.4. Patient had poorly controlled glucose of 430 with sodium of 128. Sodium was 133 when corrected for hyperglycemia. Baseline sodium is 137 in August 2024 from previous lab review. Also had elevated creatinine with concern for acute renal insufficiency versus KRISTINE. Creatinine is 1.4. Baseline creatinine is 0.78 in August 2024. ER was concern for right lower extremity cellulitis. With tourniquet check CK to rule out any rhabdomyolysis. Will also check lactic acid. Actively meet sepsis criteria with SIRS positive for elevated leukocyte count and tachycardia greater than 90 with source being lower extremity cellulitis. Endorgan dysfunction being KRISTINE. With relative hypotension patient given appropriate sepsis bolus based on ideal body weight which would be 75 kg. Given 2 L. Pierpont sepsis bolus will be 2.25 L, ever, with patient's history of heart failure limiting IV fluids to 2 L. Patient was fluid responsive. Also started on vancomycin to cover for cellulitis organisms and patient has a known history of MRSA. In the ER, patient was alert and oriented to person, place, situation. He reported noncompliance with his medications. He was not aware that he had A-fib. He is not on anticoagulation despite increased stroke risk. Discussed increased risk for stroke and need for anticoagulation with him. He voiced his understanding. He stated that he has not been compliant with any of his diabetic medications including insulin or metformin for quite some time. He stated that he stopped taking metformin because he was sick of taking it and that it did not work. He also stated emphatically that many of his physicians have been treating his diabetes wrong and that it is a proven fact that type 2 diabetes is caused by parasite that attaches itself to your pancreas . Expressed significant distrust with the medical establishment and care that he has previously received. He blamed the worsening of his foot ulcerations and chronic lower extremity cellulitis on poor treatment that he had received for his diabetes by not addressing said parasite. He was insistent about a parasitic cause for type 2 diabetes specifically. He follows with Dr. Curtis at [place] for podiatry and had a right transmetatarsal amputation in the past that appeared well-healed. He denies ever seeing vascular surgery. He follows with [place] [facility]. Stated that he has not been able to tolerate lower extremity wraps in the past. He has significant venous stasis dermatitis with weeping multiple small open wounds on his bilateral lower extremities. He has significant blood around all of his toes on the left foot. Review of Systems Constitutional: no fever, mild chills, no sweats, no weakness Respiratory: no shortness of breath, no cough, no orthopnea, no wheezing Cardiovascular: no chest pain, no palpitations, moderatechronic edema Additional ROS info: Except as noted in the above Review of Systems and in the History of Present Illness all other systems have been reviewed and are negative or noncontributory. Scoring Santiago Fall Risk Score: 70 High (01/24/25) Physical Exam Vitals & Measurements T: 36.4 ???C(Oral) TMIN: 36.4 ???C(Oral) TMAX: 36.6 ???C(Oral) HR: 103(Apical) RR: 18 BP: 102/66 SpO2: 97% HT: 182.88 cm WT: 133.8 kg General: alert, no acute distress, appears unkempt, conversational Skin: warm, dry Head: no trauma, normocephalic Neck: Trachea midline, no adenopathy, no tenderness Eye: normal conjunctiva, sclera clear ENMT: Normal oropharynx Cardiovascular: Irregularly irregular rhythm, mild tachycardia, no murmur, normal peripheral perfusion Respiratory: Lungs diminished to auscultation bilaterally, no wheeze, rales, rhonchi respirations non labored Chest wall: no deformity. Gastrointestinal: soft, non distended, no tenderness, no guarding. Back: No tenderness, Normal ROM, Normal alignment. Ext (more content not included)... [facility] Comment on above: Result Comment: Elec tronically Signed By: Ghassan Ding III, DO.marco\Date and Time Signed: 01/24/25 20:28 EDT 01-24-2025 Note ED Patient Education Note Cardiovascular Bleeding Varicose Veins Varicose veins are veins that have become enlarged and twisted due to damaged valves in the veins. Valves in the veins help return blood from the vein to the heart. If these valves are damaged, blood flows backward and backs up into the veins. This causes increased pressure within the veins, which may cause the veins to rupture and bleed. Bleeding of the varicose veins can be internal or external. External bleeding is bleeding outside the skin and can be caused from a kierra or scratch in the skin on top of the varicose vein. Internal bleeding occurs under the skin and often results from direct trauma to the varicose vein, like tripping, falling, or bumping the vein on furniture. Intradermal bleeding is another form of bleeding that can occur with small varicose veins called spider veins. In this situation, the rupture of a spider vein occurs underneath the skin surface, creating a blue-purple bruise that is visible through the skin. This problem is normally mild and usually gets better on its own without treatment. What are the causes? This condition may be caused by a cut or direct hit to the skin over the varicose vein. In some cases, bleeding can occur without direct trauma to the vein. This can result from: ??? Thinning and stretching of the skin that covers the varicose veins (hypoplasia). ??? Weak, thinning vein mcguire. ??? High blood pressure in the veins, due to the backup of blood that normally flows back to the heart. ??? A growth in the pelvis (pelvic mass) that affects the veins in the legs. ??? and childbirth. ??? Blood clots, especially in deep veins (thrombophlebitis). What increases the risk? You are more likely to develop this condition if you: ??? Have a family history of varicose veins. ??? Are on your feet a lot or are standing for long periods of time. ??? Are or have had a previous . ??? Are overweight. ??? Use control pills (oral contraceptives). ??? Have an inactive (sedentary) lifestyle. ??? Have a history of deep vein thrombosis (DVT). What are the signs or symptoms? If bleeding occurs internally, or under the skin, symptoms may include: ??? Blue or purple discoloration in the skin that spreads beyond the veins. ??? Itchy and discolored skin. ??? Heaviness, aching and throbbing pain, and cramps in the legs, especially after long periods of standing, wearing tight clothing, or being in a hot climate. ??? Severe skin dryness (varicose eczema). ??? A burning sensation. ??? Dizziness and sometimes fainting. External bleeding occurs on the surface of the skin, most often after a cut, scrape, bruise, or other physical trauma. When this occurs, it is crucial to put pressure on the vein and stop the bleeding. How is this diagnosed? This condition may be diagnosed based on your symptoms, including when you first noticed any bleeding or pain. How is this treated? Treatment may include: ??? Stopping bleeding by applying pressure to the vein with a clean towel, bandage, or fabric. ??? Stopping swelling by applying pressure (compression) to the area over a longer period of time. This may be done by applying an elastic bandage or wearing compression stockings. ??? Raising (elevating) your leg above the level of your heart for 30 minutes a few times a day. Follow these instructions at home: Medicines ??? Take and use [id number] and prescription medicines and creams only as told by your health care provider. ??? If you were prescribed an antibiotic cream, use it as told by your health care provider. Do not stop using the antibiotic even if your condition improves. Lifestyle ??? Do not use any products that contain nicotine or tobacco. These products include cigarettes, chewing tobacco, and vaping devices, such as e-cigarettes. If you need help quitting, ask your health care provider. ??? Exercise regularly and do exercises as told by your health care provider. ??? If directed, work with your health care provider to lose weight. General instructions ??? Wear compression stockings or apply elastic bandages or any wraps as told by your health care provider. These help to prevent blood clots and reduce swelling in your legs. ??? Try to avoid sitting or standing for long periods of time. If you need to sit or stand for a long time, move around often to maintain blood flow (circulation). ??? Elevate your legs above the level of your heart for 30 minutes, 4 times a day, or as often as directed. To do this, lie down with your leg propped up on a pillow or cushion so that your foot is above heart level. Doing this regularly can help prevent more bleeding from developing. ??? Check your skin every day for new sores and signs of bleeding. ??? Avoid wearing high-heeled shoes and tight clothing, especially around your limbs and wais (more content not included)... [facility] 01-24-2025 Note Progress Note-Nurse tourniquerts removed by puneet [facility] 01-24-2025 Note Progress Note - [facility] to Dose Warfarin Indication for warfarin use: afib Target INR: 2-3 Hospitalist: Timur On warfarin prior to admission? No Home Regimen: n/a, new start INR Value/Dose Given: 01/24: INR 1.03, Scheduled for today: 5mg Other Comments: 01/24: Pt reported that he was on a blood thinner, but he is not sure of which one. Nothing comes up in outside records or external fill. Will treat as new start Discharge Plan; TBD Please contact Pharmacy at ext. [phone] if there are any questions. Spoke with Dr. Ding - he is ordering a lovenox bridge [facility] 01-24-2025 Note Progress Note-Nurse derrell stopped after 4 minutes for blood cultures that are new order. puneet informed. [facility] 01-24-2025 Note Progress Note-Nurse pt reportedly wears 5 lpm at ho me. d8id not say before. no saturating properly on at home O2 [facility] 11-05-2024 Evaluation note Diagnosis Onset Date Resolution Atrial flutter acute October 10:18am Chronic back pain acute October 192024 10:18am COPD (chronic obstructive pulmonary disease) acute November 05, 2024 10:18am Heart failure acute November 05, 2024 10:18am Hypertension acute November 05, 2024 10:18am Mixed hyperlipidemia acute Apri l 2024 10:18am Nicotine dependence acute November 05, 2024 10:18am Non-compliance acute October 10:18am Non-healing wound of left lower extremity acute November 05, 2024 10:18am Non-healing wound of right lower extremity acute October 10:18am Oxygen dependent acute November 052024 10:18am Right sided sciatica acute Apri l 2024 10:18am Sleep disturbance acute October 192024 10:18am Status post partial amputation of right foot acute October 192024 10:18am Type 2 diabetes mellitus acute November 05, 2024 10:18am Venous insufficiency (chronic) (peripheral) acute October 10:18am [facility] Work Phone: 1(716) 431-620502-20-20[facility]24 NoteDISCHARGE PLANNING UPDATE Patient now agreeable to SNF placement. Insurance authorization submitted for [facility] in [place]. Awaiting insurance decision.[facility]25 [facility]-07-2024 NoteUn[facility]02-18-2025 [facility]-2025 [facility]-07-2024 [facility]-20[facility]-06-2024 [facility]-2025 [facility]Un[facility] 09-05-2024 NoteUn[facility]02-16-2025 NoteUn[facility]02-15-2025 [facility]Un[facility] 09-04-2024 NoteUn[facility]02-15-2025 NoteUn[facility]02-14-2025 [facility]Un[facility] 09-03-2024 NoteUn[facility]02-14-2025 NoteUn[facility]02-13-2025 NoteUn[facility] 09-02-2024 NoteUn[facility]02-13-2025 NoteUn[facility]02-13-2025 [facility]Un[facility] 09-01-2024 NoteDISCHARGE PLANNING UPDATE [facility] ([place], [place]) is [facility]. Per their admissions team, they are submitting to insurance for authorization today, 09/01.[facility] 09-01-2024 NoteUn[facility]02-12-2025 [facility]02-[facility]-2025 [facility]Un[facility] 08-31-2024 [facility]-2025 [facility]-11-2025 [facility] 08-30-2024 [facility]-10-2025 [facility]-10-2025 [facility] 08-30-2024 NoteUn[facility]02-09-2025 NoteUn[facility]02-08-2025 NoteUn[facility] 08-28-2024 NoteR[facility]-2025 NoteR[facility]02-07-2025 [facility] 08-27-2024 [facility]02-06-2025 NoteUn[facility]02-06-2025 NoteUn[facility] 08-26-2024 NoteUn[facility]02-06-2025 NoteUn[facility]02-05-2025 NoteUn[facility] 08-25-2024 NoteUn[facility]02-05-2025 NoteUn[facility]02-05-2025 NoteUn[facility] 08-24-2024 NoteUn[facility]02-04-2025 NoteUn[facility]02-04-2025 NoteUn[facility] 08-24-2024 NotePatient is off unit for testing at this time.[facility]-04-2025 NoteUn[facility]02-04-2025 Note [facility]02-04-2025 NoteUn[facility]02-04-2025 NoteUn[facility]02-04-2025 Note [facility]02-[facility]-2025 NoteUn[facility]02-03-2025 NoteR[facility]02-02-2025 Note [facility]02-01-2025 NoteR[facility]02-01-2025 NoteR[facility]01-31-2025 Note [facility]01-31-2025 NoteR[facility]01-30-2025 NoteUn[facility]01-29-2025 Note [facility]01-28-2025 NoteUn[facility]01-28-2025 NoteUn[facility]01-27-2025 Note [facility]01-27-2025 NoteUn[facility]01-27-2025 NoteUnUniversity [facility]als [facility]a Medical CenterEvaluation noteNo assessment information availableUniversity Hospitals [facility] Work Phone: Evaluation note* Diagnosis Onset Date Resolution Status Type 2 diabetes mellitus acu [facility] Work Phone: Evaluation note* Diagnosis Onset Date Resolution Status COPD (chronic obstructive pulmonary disease) acute Hypertension acute MRSA cellulitis of right foot acute Nicotine dependence acute Non-compliance acute Oxygen dependent acute Type 2 diabetes mellitus acu te Ulcer of right foot due to type 2 diabetes mellitus acute [facility] Work Phone: Evaluation note* Diagnosis Onset Date Resolution Status COPD (chronic obstructive pulmonary disease) acute Hypertension acute MRSA cellulitis of right foot acute Nicotine dependence acute Non-compliance acute Oxygen dependent acute Type 2 diabetes mellitus acu te Ulcer of right foot due to type 2 diabetes mellitus acute Acute osteomyelitis of foot acute [facility] Work Phone: Evaluation note* Diagnosis Onset Date Resolution Status COPD (chronic obstructive pulmonary disease) acute Hypertension acute MRSA cellulitis of right foot acute Nicotine dependence acute Non-compliance acute Oxygen dependent acute Type 2 diabetes mellitus acu te Ulcer of right foot due to type 2 diabetes mellitus acute Acute osteomyelitis of foot acute Low back pain acute [facility] Work Phone: Evaluation note* Diagnosis Onset Date Resolution Status Admit Date COPD (chronic obstructive pulmonary disease) acute November 05, 2 025 10:18am Hypertension acute November 05, 2024 10:18am Mixed hyperlipidemia acute Apri l 2024 10:18am Nicotine dependence acute November 05, 2024 10:18am Non-compliance acute October 10:18am Oxygen dependent acute November 052024 10:18am Status post partial amputati on of right foot acute November 05, 2024 10:18am Type 2 diabetes mellitus acute November 05, 2024 10:18am [facility] Work Phone: Reason for referral (narrative)No reason for referral information availableAshtabula County Medical Center Work Phone: Summary Purpose Family History No Family History Records Found Relationship Condition Age at Onset Recorded Date/T mecca mother Malignant neoplasm of cervix Unknown Advance Directives No Advanced Directives Records Found Advance Directive Response Recorded Date/ Time Advance Directives No March 2:40pm Chief Complaint and Reason for Visit Chief Complaint Admit Date F/U [facility] stay/Medications-HIGH R ISK November 05, 2024 10:18am Amb Documentation January 27, 2025 8:33 am [facility] [place] February 01, 2025 2:06 pm [...] (chronic) (peripher al) November 05, 2024 10:18am Chief Complaint Admit Date F/U [facility] stay/Medications-HIGH R ISK November 05, 2024 10:18am Reason for Visit Admit Date COPD (chronic obstructive pulmonary dise ase) November 05, 2024 10:18am Hypertension November 05, 2024 10: 18am Mixed hyperlipidemia November 05, 2024 10 :18am Nicotine dependence November 05, 2024 10: 18am Non-compliance November 05, 2024 10: 18am Oxygen dependent November 05, 2024 10: 18am Status post partial amputation of right foot November 05, 2024 10:18am Type 2 diabetes mellitus November 05 10:18am Chief Complaint Unknown est, [facility] follow up, [...] content) No Status Records FoundNo Status Records FoundNo Status Records FoundNo Status Records FoundNo Status Records FoundNo Status Records FoundNo Status Records FoundNo Status Records FoundNo Status Records FoundNo Status Records FoundNo Status Records FoundNo Status Records FoundNo Status Records FoundNo Status Records FoundNo Status Records FoundNo Status Records FoundNo Status Records FoundNo Status Records FoundNo Status Records FoundNo Status Records FoundNo Status Records FoundNo Status Records FoundNo Status Records FoundNo Status Records FoundNo Status Records FoundNo Status Records FoundNo Status Records FoundNo Status Records FoundNo Status Records FoundNo Status Records FoundNo Status Records FoundNo Status Records FoundNo Status Records FoundNo Status Records FoundNo Status Records Found INFORMATION SOURCE (unrecogn ized section and content) DATE CREATED AUTHOR 07/19/[address] [facility] DATE CREATED AUTHOR AUTHOR'S ORGANIZ ATION 04/20/2024 [facility] DATE CREATED AUTHOR AUTHOR'S ORGANIZ ATION 10/20/2024 [facility] DATE CREATED AUTHOR AUTHOR'S ORGANIZ ATION 01/28/2025 [facility] DATE CREATED AUTHOR AUTHOR'S ORGANIZ ATION 01/29/2025 [facility] DATE CREATED AUTHOR AUTHOR'S ORGANIZ ATION 01/30/2025 [facility] DATE CREATED AUTHOR AUTHOR'S ORGANIZ ATION 02/04/2025 [facility] DATE CREATED AUTHOR AUTHOR'S ORGANIZ ATION 02/17/2025 [facility] Care Teams (unrecognized sec tion and content) Team Status: Active Member Role Status Dates Magnolia Chavez LPN Attending Provider Active St art: January 26, 2024 Team Status: Inactive Member Role Status Dates Rc Curtis DPM MS Attending Provider Active Start: March 29, 2024 End: March 29, 2024 Team Status: Active Member Role Status Dates Dara Eisenberg APRN [employer] Primary Care Provider Active Team Status: Inactive Member Role Status Dates Dara Eisenberg APRN [employer] Primary Care Provider, Attending Provider Active Start: April 05, 2024 End: April 05, 2024 Team Status: Active Member Role Status Dates Dara Eisenberg APRN [employer] Primary Care Provider, Attending Provider Active Start: April 08, 2024 Team Status: Inactive Member Role Status Dates Dara Eisenberg APRN [employer] Primary Care Provider Active Start: March [id number] End: April 08, 2024 Rc Curtis DPM MS Attending Provider Active Start: April 08, 2024 End: April 08, 2024 Team Status: Inactive Member Role Status Dates Dara Eisenberg APRN [employer] Primary Care Provider Active Start: March [id number] End: April 12, 2024 Navdeep Trujillo MD Attending Provider Active Sta rt: April 12, 2024 End: April 12, 2024 Team Status: Inactive Member Role Status Dates Dara Eisenberg APRN [employer] Primary Care Provider, Attending Provider Active Start: May 03, 2024 End: May 03, 2024 Team Status: Active Member Role Status Dates Dara Eisenberg APRN [employer] Primary Care Provider Active Start: July Shaikh Mono MD Attending Provider Active Sta rt: August 14, 2024 Team Status: Active Member Role Status Dates Dara Eisenberg APRN [employer] Primary Care Provider Active Start: July Shaikh Mono MD Attending Provider Active Sta rt: August 15, 2024 Team Status: Inactive Member Role Status Dates Dara Eisenberg APRN [employer] Primary Care Provider, Attending Provider Active Start: November 05, 2024 End: November 05, 2024 Team Status: Inactive Member Role Status Dates Dara Eisenberg APRN [employer] Primary Care Provider Active Start: November 05, 2024 End: November 05, 2024 Dara Eisenberg APRN [employer]Bro Attending Provider Act mook Start: November 05, 2024 End: November 05, 2024 Team Status: Active Member Role Status Dates Dara Eisenberg APRN [employer] Primary Care Provider Active Start: January 27, 2025 Angelic Blevins CMA Attending Provider Active Start: January 27, 2025 Team Status: Inactive Member Role Status Dates Dara Eisenberg APRN [employer] Primary Care Provider Active Start: February 01, 2025 End: February 01, 2025 Dara Eisenberg APRN [employer]C Attending Provider Act mook Start: February 01, 2025 End: February 01, 2025 Goals (unrecognized section and content) Goals may [...] BE BASED ON THE PRIMARY CLINICAL RECORDS. [facility] [employer] provides no warranty or guarantee of the accuracy or completeness of information in this document.
== END 2025-03-07 13:01 | disposition home or self-care (01) ==
LOC: WC 14:31
PROVIDERS: PCP Nurse Practitioner Family; Visit Provider Physician Assistant
DX: I87.313 Chronic venous hypertension (idiopathic) with ulcer of bilateral lower extremity (principal); L97.822 Non-pressure chronic ulcer of other part of left lower leg with fat layer exposed; L97.812 Non-pressure chronic ulcer of other part of right lower leg with fat layer exposed
CPT/HCPCS: G0463

== ENCOUNTER 2025-03-10 13:50 | Outpatient (OUT) | payer MEDICARE, SELFPAY ==
--- OUTSIDE RECORDS SUMMARY | 2025-03-10 14:01 | XMS_ITS | CCD ---
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 1.3 E9/L High 0.2-1.0 [facility] Comment on above: Performed By: #### 2 [id number] #### [facility] Laboratory [address] [place] [address] Monocytes/100 WBC (Bld) 7.6 % Normal 4.0-14.0 [facility] Comment on above: Performed By: #### 2 [id number] #### [facility] Laboratory [address] [place] [address] Neutro Absolute 14.8 E9/L High 2.0-7.5 [facility] Comment on above: Performed By: #### 2 [id number] #### [facility] Laboratory [address] [place] [address] Neutro Auto 85.3 % High 36.0-75.0 [facility] Comment on above: Performed By: #### 2 [id number] #### [facility] Laboratory [address] [place] [address] Platelet 269.0 E9/L Normal 150.0-500.0 [facility] Comment on above: Performed By: #### 2 [id number] #### [facility] Laboratory [address] [place] [address] Platelet mean volume (Bld) [Entitic vol] 8.7 fL Normal 6.4-10.8 [facility] Comment on above: Performed By: #### 2 [id number] #### [facility] Laboratory [address] [place] [address] RBC 4.8 E12/L Normal 4.3-5.9 [facility] Comment on above: Performed By: #### 2 [id number] #### [facility] Laboratory [address] [place] [address] WBC 17.4 E9/L High 4.0-11.0 [facility] Comment on above: Performed By: #### 2 [id number] #### [facility] [address] [place] [address] Capillary Glucose POCon 07-0 Glucose [Mass/Vol] 490 mg/dL Abnormal 55-99 [facility] Comment on above: Result Comment: Cindy calle RN/MD Performed By: #### 2 [id number] #### [facility] Laboratory [address] [place] [address] ED Clinical Summaryon 2024 ED Clinical Summary ED Clinical Summary [address] [address] ED Clinical Summary Person Information [facility] Age: 64 Years : 1960 Sex: Male Language: Latvian PCP: DARA EISENBERG CNP Marital Status: Single Phone: [phone] Visit Id: Visit Reason: Medical problem - major; VERICOSE VEIN TOURNIQUET Speciality: Acuity: 2 Enc Type: Inpatient Med Service: Medical Arrival: 01/24/2025 11:29:33 Discharge: LOS: 000 07:25 Checkin: 01/24/2025 11:29:33 Checkout: 01/24/2025 18:54:25 Dispo Type: Admitted as IP to this [facility] EVENTS: Event Name Event Status Request Date/Time [...] 18:23:37 Patient Care Request 01/24/2025 18:23:37 ADDRESS: [address] [place] [address] PHYS DOC NOTES: MEDICAL INFORMATION: Prescriptions Given: New Medications [id number], [address], [place] [id number], [phone] doxycycline (doxycycline hyclate 100 mg Cap) 1 Capsules By Mouth 2 times a day for 7 Days. Refills: 0. PATIENT EDUCATION INFORMATION: Instructions: Cellulitis, Adult, Slfo-yn-Pmhu; Bleeding Varicose Veins Follow up: With: Address: When: DARA EISENBERG [address], [address] [place] [phone] Business (1) In 3 days 01/27/2025 Comments: Call Dr for diagnosis based follow up DIAGNOSIS: 1:Severe sepsis; 2:Cellulitis of leg; 3:KRISTINE (acute kidney injury); 4:Atrial fibrillation with RVR; 5: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; 6:Hyponatremia; 7:Noncompliance with medications Normal [facility] ED Note-Physicianon 01-25-20 ED Note-Physician ED Note-Physician [...] of the patient. Sepsis Data [x] Patient's [place] body weight was considered in sepsis fluid [...] nonco (more content not included)... Normal [facility] Comment on above: Result Comment: Elec tronically Signed By: Puneet Jung PA-C.br\Date and Time Signed: 01/24/25 13:02 EDT\.br\Electronically Co-Signed By: Puneet Jung PA-C.br\Date and Time Co-Signed: 01/24/25 15:25 EDT\.br\Electronically Co-Signed By: Puneet Jung PA-C.br\Date and Time Co-Signed: 01/24/25 16:27 EDT\.br\Electronically Co-Signed By: Justine Otto, Manuel Mathis\.br\Date and Time Co-Signed: 01/24/25 18:08 EDT ED Patient Summaryon 025 ED Patient Summary ED Patient Summary [place] [address] Patient Discharge Instructions Person Information Name: TYLER MCKINNEY Age: 64 Years Arrival Date: 01/24/2025 11:29:33 Discharge Diagnosis: 1:Severe sepsis; 2:Cellulitis of leg; 3:KRISTINE (acute kidney injury); 4:Atrial fibrillation with RVR; 5: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; 6:Hyponatremia; 7:Noncompliance with medications Primary Care Physician: DARA EISENBERG CNP Provider Information Primary Provider: Manuel Fletcher M.D. Advanced Mailing Machine Assistant:Puneet Jung PA-C The exam and treatment you received in the Emergency Department were for an urgent problem and are not intended as complete care. It is important that you follow up with a doctor, nurse practitioner, or physician???s desk assistant for ongoing care. If your [...] Instructions: With: Address: When: DARA EISENBERG [address] [facility] [place] [phone] Business (1) In 3 days 01/27/2025 Comments: Call Dr for diagnosis based follow up In the event that this physician does not participate in your insurance network, please consult with your insurance company to find a nearby participating provider. Patient Education Materials: Cellulitis, Adult, Xmsm-uu-Wudq; Bleeding Varicose Veins A MESSAGE TO ALL PATIENTS REGARDING OPIOIDS PRESCRIPTION OPIOIDS: WHAT YOU NEED TO KNOW Prescription opioids can be used to help relieve cjmubawk-ft-ojmruu pain and are often prescribed following a [...] toilet, f (more content not included)... Normal [facility] Lactic Acidon 01-24-2025 Lactic Acid Lvl 1.0 mmol/L Normal 0.5-2.2 [facility] Comment on above: Performed By: #### 2 [id number] #### [facility] Laboratory [address] [place] [address] PT & PTTon 01-24-2025 INR Coag (PPP) [Relative time] 1.03 {INR} Invalid Interpretation Code [facility] Comment on above: Result Comment: INR results are specifically intended to assess patients stabilized on long-term Anticoagulation therapy suggested INR???s ???Less Intensive Anticoagulation??? 2.0 ??? 3.0 Conventional Range 3.0 ??? 4.5 Performed By: #### 1 [id number] #### [facility] Laboratory [address] [place] [address] PT 11.5 second(s) Normal 9.4-12.5 [facility] Comment on above: Result Comment: 15 d [...] were obtained from a study by Shimon Clearfield, et al. prepared from 1437 samples obtained at 7 different centers using the same coagulation reagent and instrumentation as [facility]. Currently there are no coagulation studies available worldwide for children to 14 days, and no normal ranges. Performed By: #### 1 [id number] #### [facility] Laboratory [address] [place] [address] PTT 27.7 second(s) Normal 25.1-36.5 [facility] Comment on above: Result Comment: Para meter [...] the same coagulation reagent and instrumentation as [facility]. Currently there are no coagulation studies available worldwide for children to 14 days, and no normal ranges. Heparin therapeutic range (represented by Anti-Factor Xa activity of 0.2 - 0.4 U/mL) corresponds to PTT of 56.6 - 109.0 sec. Performed By: #### 1 [id number] #### [facility] Laboratory [address] [place] [address] Pre-Arrival Noteon Pre-Arrival Note Pre-Arrival Note Pre-Arrival Summary Name: , Current Date: 01/24/2025 11:30:22 EDT Gender: Date of : Age: Pre-Arrival Type: EMS ETA: 01/24/2025 11:50:00 EDT Primary Care Physician: Presenting Problem: varicose vein tourniquet Pre-Arrival User: [address] Referring Source: Location: [place] Completion Date/Time: 01/24/2025 11:20:00 [facility] Emergency Department Pre-Hospital Report Form Vital Signs: Pre-Hospital Report: Treatment in Route: Response to Treatment: Misc. Issues: Normal [facility] Procalcitoninon 01-24-2025 Procalcitonin .09 ng/mL Normal .00-.50 [facility] Comment on above: Result Comment: <0.5 [...] to 24 hours. Performed By: #### 2 [id number] #### [facility] Laboratory [address] [place] [address] Troponin 0 Hr.on 01-24-2025 Troponin HS 4.60 pg/mL Low 15.90-38.40 [facility] Comment on above: Result Comment: The 95% CI (Confidence Interval) PPV (Positive Predictive Value) for myocardial infarction in females is 38 pg/mL, in males 51 pg/mL. The results should be used in conjunction with clinical conditions of myocardial infarction. (Access High Sensitivity Troponin I Instructions For Use, Charli Fisher, February 2018) Performed By: #### 1 [id number] #### [facility] [address] [place] [address] UA with Cult Rflxon 01-25-20 25 Color (U) Light-Yellow Normal Yellow [facility] Comment on above: Result Comment: Micr oscopic readings are only performed on those samples that meet specific criteria set forth by [facility]. Performed By: #### 4 [id number] #### [facility] Laboratory [address] [place] [id number] Ketones Ql (U) Negative Normal Negative [facility] Comment on above: Performed By: #### 4 [id number] #### [facility] Laboratory [address] [place] [address] UA Blood 1+ mg/dL Abnormal Negative [facility] Comment on above: Performed By: #### 4 [id number] #### [facility] Laboratory [address] [place] [address] UA Clarity Clear Normal Clear [facility] Comment on above: Performed By: #### 4 [id number] #### [facility] [address] [place] [address] UA Glucose 4+ mg/dL Abnormal Negative [facility] Comment on above: Performed By: #### 4 [id number] #### [facility] Laboratory [address] [place] [address] UA Leuk Est Negative Normal Negative [facility] Comment on above: Performed By: #### 4 [id number] #### [facility] Laboratory [address] [place] [address] UA Mucous Trace Normal Negative [facility] Comment on above: Performed By: #### 4 [id number] #### [facility] [address] [place] [address] UA Nitrite Negative Normal Negative [facility] Comment on above: Performed By: #### 4 [id number] #### [facility] [address] [place] [address] UA pH 5.0 Invalid Interpretation Code 5.0-9.0 [facility] Comment on above: Performed By: #### 4 [id number] #### [facility] [address] [place] [address] UA Protein Negative Normal Negative [facility] Comment on above: Performed By: #### 4 [id number] #### [facility] [address] [place] [address] UA RBC 4-20 Abnormal 0-3 [facility] Comment on above: Performed By: #### 4 [id number] #### [facility] Laboratory [address] [place] [address] UA Spec Grav 1.020 Invalid Interpretation Code 1.005-1.030 [facility] Comment on above: Performed By: #### 4 [id number] #### [facility] Laboratory [address] [place] [address] UA Urobilinogen Negative Normal Negative [facility] Comment on above: Performed By: #### 4 [id number] #### [facility] [address] [place] [address] UA WBC 0-5 Normal 0-5 [facility] Comment on above: Performed By: #### 4 [id number] #### [facility] [address] [place] [address] Urobilinogen (U) [Mass/Vol] Negative Normal Negative [facility] Comment on above: Performed By: #### 4 [id number] #### [facility] Laboratory [address] [place] [address] UA Spec Desc Clean Catch Normal [facility] Comment on above: Performed By: #### 4 [id number] #### [facility] Laboratory [address] [place] [address] XR Chest 2 Viewson XR Chest 2 [...] Krishna Ray MD Transcribed by: [facility] Technologist: BLOWER OPERATOR Normal [facility] eGFRon 01-24-2025 eGFR 55 mL/min/1.73 m2 Low >=59 [facility] Comment on above: Performed By: #### 1 [id number] #### [facility] [address] [place] [address] HbA1c HPLC (Bld) [Mass fract ion]on 11-05-2024 HbA1c (Bld) [Mass fraction] 10.1 % [facility] CBC WITH AUTO DIFFERENTIALon 09-09-2024 Basophils (Bld) [#/Vol] 0.05 10*3/uL Normal 0.00-0.20 [facility] Comment on above: Performed By: #### L [id number] ####[facility] ([facility])[address] [place] [address] Basophils/100 WBC (Bld) 0.6 % Normal 0.0-1.0 [facility] Comment on above: Performed By: #### L [id number] ####[facility] ([facility])[address] [place] [address] Eosinophils (Bld) [#/Vol] 0.43 10*3/uL Normal 0.00-0.50 [facility] Comment on above: Performed By: #### L [id number] ####[facility] ([facility])[address] [place] [address] Eosinophils/100 WBC (Bld) 5.0 % Normal 0.0-6.0 [facility] Comment on above: Performed By: #### L [id number] ####[facility] ([facility])[address] [place] [address] Erythrocyte distribution width (RBC) [Ratio] 15.1 % High 11.5-15.0 [facility] Comment on above: Performed By: #### L [id number] ####[facility] ([facility])[address] [place] [address] ERYTHROCYTE MEAN CORPUSCULAR HEMOGLOBIN CONCENTRATION (G/DL) BY AUTOMATED 31.1 g/dL Low 32.0-35.0 [facility] Comment on above: Performed By: #### L [id number] ####[facility] ([facility])[address] [place] [address] Hematocrit (Bld) [Volume fraction] 48.8 % Normal 39.0-55.0 [facility] Comment on above: Performed By: #### L [id number] ####[facility] ([facility])[address] [place] [address] Hemoglobin (Bld) [Mass/Vol] 15.2 g/dL Normal 13.0-17.0 [facility] Comment on above: Performed By: #### L [id number] ####[facility] ([facility])[address] [place] [address] Immature granulocytes (Bld) [#/Vol] 0.05 10*3/uL Normal 0.00-0.20 [facility] Comment on above: Performed By: #### L [id number] ####[facility] ([facility])[address] [place] [address] Immature granulocytes/100 WBC (Bld) 0.6 % Normal 0.0-1.0 [facility] Comment on above: Performed By: #### L [id number] ####[facility] ([facility])[address] [place] [address] Lymphocytes (Bld) [#/Vol] 1.59 10*3/uL Normal 1.20-4.00 [facility] Comment on above: Performed By: #### L [id number] ####[facility] ([facility])[address] [place] [address] Lymphocytes/100 WBC (Bld) 18.5 % Low 20.0-45.0 [facility] Comment on above: Performed By: #### L [id number] ####[facility] ([facility])[address] [place] [address] MCH (RBC) [Entitic mass] 28.8 pg Normal 27.0-33.0 [facility] Comment on above: Performed By: #### L [id number] ####[facility] ([facility])[address] [place] [address] MCV (RBC) [Entitic vol] 92.6 fL Normal 82.0-98.0 [facility] Comment on above: Performed By: #### L [id number] ####[facility] [place] [address] Monocytes (Bld) [#/Vol] 0.90 10*3/uL Normal 0.10-1.00 [facility] Comment on above: Performed By: #### L [id number] ####[facility] ([facility])[address] [place] [address] Monocytes/100 WBC (Bld) 10.5 % Normal 5.0-12.0 [facility] Comment on above: Performed By: #### L [id number] ####[facility] ([facility])[address] [place] [address] Neutrophils (Bld) [#/Vol] 5.56 10*3/uL Normal 1.60-7.60 [facility] Comment on above: Performed By: #### L [id number] ####[facility] ([facility])[address] [place] [address] Neutrophils/100 WBC (Bld) 64.8 % Normal 40.0-72.0 [facility] Comment on above: Performed By: #### L [id number] ####[facility] ([facility] [place] [address] NRBC (PER 100 WBCS) BY AUTOMATED COUNT 0.0 % Normal 0 [facility] Comment on above: Performed By: #### L [id number] ####[facility] [place] [address] PLATELETS (10*3/UL) IN BLOOD AUTOMATED COUNT 208 10*3/uL Normal 150-400 [facility] Comment on above: Performed By: #### L [id number] ####[facility] ([facility] [place] [address] RBC (Bld) [#/Vol] 5.27 10*6/uL Normal 4.20-5.70 [facility] Comment on above: Performed By: #### L [id number] ####[facility] [place] [address] WBC (Bld) [#/Vol] 8.58 10*3/uL Normal 4.00-10.60 [facility] Comment on above: Performed By: #### L [id number] ####[facility] ([facility])[address] [place] [address] DSon 09-09-2024 DS [facility] MAGNESIUMon 09-09-2024 Magnesium [Mass/Vol] 1.7 mg/dL Low 1.9-2.7 [facility] Comment on above: Performed By: #### L [id number] ####[facility] ([facility])[address] [place] [address] PHOSPHORUSon 09-09-2024 Magnesium [Mass/Vol] 3.2 mg/dL Normal 2.5-5.0 [facility] Comment on above: Performed By: #### L [id number] ####[facility] ([facility])[address] [place] [address] POCT GLUCOSE METER UNSOLICIT ED RESULTSon 09-09-2024 Glucose [Mass/Vol] 114 mg/dL High 70-105 [facility] Comment on above: Order Comment: Waive d Testing in the ED is performed under the ED CLIA certificate #[id number]. Result Comment: [email or web address] [email or web address] Performed By: #### L [id number] ####[facility] ([facility])[address] [place] [address] 30on 09-08-2024 30 [facility] 30 [facility] CBC WITH AUTO DIFFERENTIALon 09-08-2024 Basophils (Bld) [#/Vol] 0.06 10*3/uL Normal 0.00-0.20 [facility] Comment on above: Performed By: #### L [id number] ####[facility] [facility] [place] [address] Basophils/100 WBC (Bld) 0.8 % Normal 0.0-1.0 [facility] Comment on above: Performed By: #### L [id number] ####[facility] ([facility])[address] [place] [address] Eosinophils (Bld) [#/Vol] 0.43 10*3/uL Normal 0.00-0.50 [facility] Comment on above: Performed By: #### L [id number] ####[facility] ([facility] [place] [address] Eosinophils/100 WBC (Bld) 5.5 % Normal 0.0-6.0 [facility] Comment on above: Performed By: #### L [id number] ####[facility] ([facility] [place] [address] Erythrocyte distribution width (RBC) [Ratio] 15.2 % High 11.5-15.0 [facility] Comment on above: Performed By: #### L [id number] ####[facility] [place] [address] ERYTHROCYTE MEAN CORPUSCULAR HEMOGLOBIN CONCENTRATION (G/DL) BY AUTOMATED 30.8 g/dL Low 32.0-35.0 [facility] Comment on above: Performed By: #### L [id number] ####[facility] ([facility])[address] [place] [address] Hematocrit (Bld) [Volume fraction] 45.4 % Normal 39.0-55.0 [facility] Comment on above: Performed By: #### L [id number] ####[facility] ([facility])[address] [place] [address] Hemoglobin (Bld) [Mass/Vol] 14.0 g/dL Normal 13.0-17.0 [facility] Comment on above: Performed By: #### L [id number] ####[facility] ([facility])[address] [place] [address] Immature granulocytes (Bld) [#/Vol] 0.03 10*3/uL Normal 0.00-0.20 [facility] Comment on above: Performed By: #### L [id number] ####[facility] ([facility])[address] [place] [address] Immature granulocytes/100 WBC (Bld) 0.4 % Normal 0.0-1.0 [facility] Comment on above: Performed By: #### L [id number] ####[facility] ([facility])[address] [place] [address] Lymphocytes (Bld) [#/Vol] 1.82 10*3/uL Normal 1.20-4.00 [facility] Comment on above: Performed By: #### L [id number] ####[facility] ([facility])[address] [place] [address] Lymphocytes/100 WBC (Bld) 23.2 % Normal 20.0-45.0 [facility] Comment on above: Performed By: #### L [id number] ####[facility] ([facility])[address] [place] [address] MCH (RBC) [Entitic mass] 29.1 pg Normal 27.0-33.0 [facility] Comment on above: Performed By: #### L [id number] ####[facility] ([facility])[address] [place] [address] MCV (RBC) [Entitic vol] 94.4 fL Normal 82.0-98.0 [facility] Comment on above: Performed By: #### L [id number] ####[facility] ([facility] [place] [address] Monocytes (Bld) [#/Vol] 0.88 10*3/uL Normal 0.10-1.00 [facility] Comment on above: Performed By: #### L [id number] ####[facility] ([facility] [place] [address] Monocytes/100 WBC (Bld) 11.2 % Normal 5.0-12.0 [facility] Comment on above: Performed By: #### L [id number] ####[facility] ([facility])[address] [place] [address] Neutrophils (Bld) [#/Vol] 4.62 10*3/uL Normal 1.60-7.60 [facility] Comment on above: Performed By: #### L [id number] ####[facility] ([facility])[address] [place] [address] Neutrophils/100 WBC (Bld) 58.9 % Normal 40.0-72.0 [facility] Comment on above: Performed By: #### L [id number] ####[facility] ([facility])[address] [place] [address] NRBC (PER 100 WBCS) BY AUTOMATED COUNT 0.0 % Normal 0 [facility] Comment on above: Performed By: #### L [id number] ####[facility] ([facility])[address] [place] [address] PLATELETS (10*3/UL) IN BLOOD AUTOMATED COUNT 231 10*3/uL Normal 150-400 [facility] Comment on above: Performed By: #### L [id number] ####[facility] ([facility])[address] [place] [address] RBC (Bld) [#/Vol] 4.81 10*6/uL Normal 4.20-5.70 [facility] Comment on above: Performed By: #### L [id number] ####[facility] ([facility])[address] [place] [address] WBC (Bld) [#/Vol] 7.84 10*3/uL Normal 4.00-10.60 [facility] Comment on above: Performed By: #### L [id number] ####[facility] ([facility])[address] [place] [address] MAGNESIUMon 09-08-2024 Magnesium [Mass/Vol] 1.6 mg/dL Low 1.9-2.7 [facility] Comment on above: Performed By: #### L [id number] ####[facility] ([facility])[address] [place] [address] NURSNOTEon 09-08-2024 NURSNOTE Normal [facility] PHOSPHORUSon 09-08-2024 Magnesium [Mass/Vol] 3.4 mg/dL Normal 2.5-5.0 [facility] Comment on above: Performed By: #### L [id number] ####[facility] ([facility])[address] [place] [address] POCT GLUCOSE METER UNSOLICIT ED RESULTSon 09-08-2024 Glucose [Mass/Vol] 244 mg/dL High 70-105 [facility] Comment on above: Order Comment: Waive d Testing in the ED is performed under the ED CLIA certificate #[id number]. Result Comment: droc kol Performed By: #### L [id number] ####[facility] ([facility])[address] [place] [address] Glucose [Mass/Vol] 165 mg/dL High 70-105 [facility] Comment on above: Order Comment: Waive d Testing in the ED is performed under the ED CLIA certificate #[id number]. Result Comment: [email or web address] [email or web address] Performed By: #### L [id number] ####[facility] ([facility])[address] [place] [address] Glucose [Mass/Vol] 110 mg/dL High 70-105 [facility] Comment on above: Order Comment: Waive d Testing in the ED is performed under the ED CLIA certificate #[id number]. Result Comment: ndub [email or web address] Performed By: #### L [id number] ####[facility] ([facility])[address] [place] [address] Glucose [Mass/Vol] 157 mg/dL High 70-105 [facility] Comment on above: Order Comment: Waive d Testing in the ED is performed under the ED CLIA certificate #[id number]. Result Comment: ndub [email or web address] Performed By: #### L [id number] ####[facility] ([employer])[address] [place] [address] 30on 09-07-2024 30 Normal [facility] 30 Normal [facility] BASIC METABOLIC PANELon 08-21 Anion gap [Moles/Vol] 9 mmol/L Normal 7-20 [facility] Comment on above: Performed By: #### L [id number] ####[facility] ([facility] [place] [address] Calcium [Mass/Vol] 9.6 mg/dL Normal 8.6-10.3 [facility] Comment on above: Performed By: #### L [id number] ####[facility] ([facility] [place] [address] Chloride [Moles/Vol] 100 mmol/L Normal 98-107 [facility] Comment on above: Performed By: #### L [id number] ####[facility] ([facility] [place] [address] CO2 [Moles/Vol] 32 mmol/L High 21-31 [facility] Comment on above: Performed By: #### L [id number] ####[facility] ([facility] [place] [address] Creatinine [Mass/Vol] 0.78 mg/dL Normal 0.70-1.30 [facility] Comment on above: Performed By: #### L [id number] ####[facility] ([facility] [place] [address] GLOMERULAR FILTRATION RATE ML/MIN/1.73 SQ M.PREDICTED 99.0 mL/min/1.73m*2 Normal >60.[address] [facility] Comment on above: Result Comment: [facility]???s estimated glomerular filtration rate (eGFR) will [...] of individuals. Performed By: #### L [id number] ####[facility] ([facility])[address] [place] [address] Glucose [Mass/Vol] 153 mg/dL High 70-100 [facility] Comment on above: Performed By: #### L [id number] ####[facility] ([facility])[address] [place] [address] Potassium [Moles/Vol] 4.1 mmol/L Normal 3.5-5.1 [facility] Comment on above: Performed By: #### L [id number] ####[facility] ([facility])[address] [place] [address] Sodium [Moles/Vol] 137 mmol/L Normal 136-145 [facility] Comment on above: Performed By: #### L [id number] ####[facility] ([facility])[address] [place] [address] Urea nitrogen [Mass/Vol] 19 mg/dL Normal 7-25 [facility] Comment on above: Performed By: #### L [id number] ####[facility] ([facility])[address] [place] [address] UREA NITROGEN/CREATININE (MASS RATIO) IN SER/PLAS 24.4 Normal [facility] Comment on above: Performed By: #### L [id number] ####[facility] ([facility])[address] [place] [address] CBC WITH AUTO DIFFERENTIALon 09-07-2024 Basophils (Bld) [#/Vol] 0.06 10*3/uL Normal 0.00-0.20 [facility] Comment on above: Performed By: #### L [id number] ####[facility] ([facility])[address] [place] [address] Basophils/100 WBC (Bld) 0.8 % Normal 0.0-1.0 [facility] Comment on above: Performed By: #### L [id number] ####[facility] ([facility])[address] [place] [address] Eosinophils (Bld) [#/Vol] 0.49 10*3/uL Normal 0.00-0.50 [facility] Comment on above: Performed By: #### L [id number] ####[facility] ([facility])[address] [place] [address] Eosinophils/100 WBC (Bld) 6.8 % High 0.0-6.0 [facility] Comment on above: Performed By: #### L [id number] ####[facility] [place] [address] Erythrocyte distribution width (RBC) [Ratio] 15.3 % High 11.5-15.0 [facility] Comment on above: Performed By: #### L [id number] ####[facility] ([facility])[address] [place] [address] ERYTHROCYTE MEAN CORPUSCULAR HEMOGLOBIN CONCENTRATION (G/DL) BY AUTOMATED 30.9 g/dL Low 32.0-35.0 [facility] Comment on above: Performed By: #### L [id number] ####[facility] ([facility])[address] [place] [address] Hematocrit (Bld) [Volume fraction] 45.9 % Normal 39.0-55.0 [facility] Comment on above: Performed By: #### L [id number] ####[facility] ([facility])[address] [place] [address] Hemoglobin (Bld) [Mass/Vol] 14.2 g/dL Normal 13.0-17.0 [facility] Comment on above: Performed By: #### L [id number] ####[facility] ([facility])[address] [place] [address] Immature granulocytes (Bld) [#/Vol] 0.04 10*3/uL Normal 0.00-0.20 [facility] Comment on above: Performed By: #### L [id number] ####[facility] ([facility])[address] [place] [address] Immature granulocytes/100 WBC (Bld) 0.6 % Normal 0.0-1.0 [facility] Comment on above: Performed By: #### L [id number] ####[facility] ([facility])[address] [place] [address] Lymphocytes (Bld) [#/Vol] 1.82 10*3/uL Normal 1.20-4.00 [facility] Comment on above: Performed By: #### L [id number] ####[facility] ([facility])[address] [place] [address] Lymphocytes/100 WBC (Bld) 25.3 % Normal 20.0-45.0 [facility] Comment on above: Performed By: #### L [id number] ####[facility] ([facility])[address] [place] [address] MCH (RBC) [Entitic mass] 29.2 pg Normal 27.0-33.0 [facility] Comment on above: Performed By: #### L [id number] ####[facility] ([facility])[address] [place] [address] MCV (RBC) [Entitic vol] 94.4 fL Normal 82.0-98.0 [facility] Comment on above: Performed By: #### L [id number] ####[facility] ([facility])[address] [place] [address] Monocytes (Bld) [#/Vol] 0.74 10*3/uL Normal 0.10-1.00 [facility] Comment on above: Performed By: #### L [id number] ####[facility] ([facility])[address] [place] [address] Monocytes/100 WBC (Bld) 10.3 % Normal 5.0-12.0 [facility] Comment on above: Performed By: #### L [id number] ####[facility] ([facility])[address] [place] [address] Neutrophils (Bld) [#/Vol] 4.04 10*3/uL Normal 1.60-7.60 [facility] Comment on above: Performed By: #### L [id number] ####[facility] [place] [address] Neutrophils/100 WBC (Bld) 56.2 % Normal 40.0-72.0 [facility] Comment on above: Performed By: #### L [id number] ####[facility] ([facility])[address] [place] [address] NRBC (PER 100 WBCS) BY AUTOMATED COUNT 0.0 % Normal 0 [facility] Comment on above: Performed By: #### L [id number] ####[facility] ([facility])[address] [place] [address] PLATELETS (10*3/UL) IN BLOOD AUTOMATED COUNT 234 10*3/uL Normal 150-400 [facility] Comment on above: Performed By: #### L [id number] ####[facility] ([facility])[address] [place] [address] RBC (Bld) [#/Vol] 4.86 10*6/uL Normal 4.20-5.70 [facility] Comment on above: Performed By: #### L [id number] ####[facility] ([facility])[address] [place] [address] WBC (Bld) [#/Vol] 7.19 10*3/uL Normal 4.00-10.60 [facility] Comment on above: Performed By: #### L [id number] ####[facility] [place] [address] MAGNESIUMon 09-07-2024 Magnesium [Mass/Vol] 1.7 mg/dL Low 1.9-2.7 [facility] Comment on above: Performed By: #### L [id number] ####[facility] ([facility] [place] [address] NURSNOTEon 09-07-2024 NURSNOTE Signed off to Ian engel RN [facility] NURSNOTE HOB up @ 40 degrees, NO c/o of pain, or SOB at this time Urinal at bedside Call light within reach IV INT'd, intact, no redness noted Pulse ox--97% O 2 cont. On pt. Per nasal cannula @ 4 L/min NC Telemetry cont. On pt [facility] NURSNOTE [facility] NURSNOTE Tried to call Elias, pt's brother, no answer, still, at this time, 3rd attempt [facility] NURSNOTE [facility] NURSNOTE Pt's family brought him a hamburger last night, and the pt. Is eating it now. Pt. Encouraged not to eat, since the hamburger has been sitting out all night. Pt. Cont. To eat burger. [facility] NURSNOTE Eyes closed resp. Easy @ 18/min Pulse ox--98% Telemetry cont. On pt [facility] Orders Onlyon 09-07-2024 Orders Only [id number] Tyler Mckinney 1960 M Date Provider Department Center 09/07/[id number], JENN*[facility] RT [facility] Medical C No family history on file [facility] PHOSPHORUSon 09-07-2024 Magnesium [Mass/Vol] 3.5 mg/dL Normal 2.5-5.0 [facility] Comment on above: Performed By: #### L [id number] ####[facility] ([facility])[address] [place] [address] POCT GLUCOSE METER UNSOLICIT ED RESULTSon 09-07-2024 Glucose [Mass/Vol] 200 mg/dL High 70-105 [facility] Comment on above: Order Comment: Waive d Testing in the ED is performed under the ED CLIA certificate #[id number]. Result Comment: droc kol Performed By: #### L [id number] ####[facility] ([facility])[address] [place] [address] Glucose [Mass/Vol] 211 mg/dL High 70-105 [facility] Comment on above: Order Comment: Waive d Testing in the ED is performed under the ED CLIA certificate #[id number]. Result Comment: awul ff3 Performed By: #### L [id number] ####[facility] ([facility])[address] [place] [address] Glucose [Mass/Vol] 298 mg/dL High 70-105 [facility] Comment on above: Order Comment: Waive d Testing in the ED is performed under the ED CLIA certificate #[id number]. Result Comment: awul ff3 Performed By: #### L [id number] ####[facility] ([facility])[address] [place] [address] Glucose [Mass/Vol] 155 mg/dL High 70-105 [facility] Comment on above: Order Comment: Waive d Testing in the ED is performed under the ED CLIA certificate #[id number]. Result Comment: awul [email or web address] Performed By: #### L [id number] ####[facility] ([facility])[address] [place] [address] 30on 09-06-2024 30 Normal [facility] 30 Normal [facility] BASIC METABOLIC PANELon 08-21 Anion gap [Moles/Vol] 11 mmol/L Normal 7-20 [facility] Comment on above: Performed By: #### L [id number] ####[facility] [place] [address] Calcium [Mass/Vol] 9.8 mg/dL Normal 8.6-10.3 [facility] Comment on above: Performed By: #### L [id number] ####[facility] ([facility])[address] [place] [address] Chloride [Moles/Vol] 98 mmol/L Normal 98-107 [facility] Comment on above: Performed By: #### L [id number] ####[facility] ([facility])[address] [place] [address] CO2 [Moles/Vol] 31 mmol/L Normal 21-31 [facility] Comment on above: Performed By: #### L [id number] ####[facility] ([facility])[address] [place] [address] Creatinine [Mass/Vol] 0.90 mg/dL Normal 0.70-1.30 [facility] Comment on above: Performed By: #### L [id number] ####[facility] ([facility])[address] [place] [address] GLOMERULAR FILTRATION RATE ML/MIN/1.73 SQ M.PREDICTED 94.8 mL/min/1.73m*2 Normal >60.[address] [facility] Comment on above: Result Comment: [facility]???s estimated glomerular filtration rate (eGFR) will [...] of individuals. Performed By: #### L [id number] ####[facility] ([facility])[address] [place] [address] Glucose [Mass/Vol] 244 mg/dL High 70-100 [facility] Comment on above: Performed By: #### L [id number] ####[facility] ([facility])[address] [place] [address] Potassium [Moles/Vol] 3.9 mmol/L Normal 3.5-5.1 [facility] Comment on above: Performed By: #### L [id number] ####[facility] ([facility])[address] [place] [address] Sodium [Moles/Vol] 136 mmol/L Normal 136-145 [facility] Comment on above: Performed By: #### L [id number] ####[facility] ([facility])[address] [place] [address] Urea nitrogen [Mass/Vol] 18 mg/dL Normal 7-25 [facility] Comment on above: Performed By: #### L [id number] ####[facility] ([facility])[address] [place] [address] UREA NITROGEN/CREATININE (MASS RATIO) IN SER/PLAS 20.0 Normal [facility] Comment on above: Performed By: #### L [id number] ####[facility] ([facility])[address] [place] [address] CBC WITH AUTO DIFFERENTIALon 09-06-2024 Basophils (Bld) [#/Vol] 0.07 10*3/uL Normal 0.00-0.20 [facility] Comment on above: Performed By: #### L [id number] ####[facility] ([facility])[address] [place], [place] [address] Basophils/100 WBC (Bld) 1.0 % Normal 0.0-1.0 [facility] Comment on above: Performed By: #### L [id number] ####[facility] ([facility])[address] [place] [address] Eosinophils (Bld) [#/Vol] 0.40 10*3/uL Normal 0.00-0.50 [facility] Comment on above: Performed By: #### L [id number] ####[facility] ([facility] [place] [address] Eosinophils/100 WBC (Bld) 5.9 % Normal 0.0-6.0 [facility] Comment on above: Performed By: #### L [id number] ####[facility] ([facility] [place] [address] Erythrocyte distribution width (RBC) [Ratio] 15.2 % High 11.5-15.0 [facility] Comment on above: Performed By: #### L [id number] ####[facility] ([facility])[address] [place] [address] ERYTHROCYTE MEAN CORPUSCULAR HEMOGLOBIN CONCENTRATION (G/DL) BY AUTOMATED 30.7 g/dL Low 32.0-35.0 [facility] Comment on above: Performed By: #### L [id number] ####[facility] ([facility])[address] [place] [address] Hematocrit (Bld) [Volume fraction] 47.3 % Normal 39.0-55.0 [facility] Comment on above: Performed By: #### L [id number] ####[facility] ([facility])[address] [place] [address] Hemoglobin (Bld) [Mass/Vol] 14.5 g/dL Normal 13.0-17.0 [facility] Comment on above: Performed By: #### L [id number] ####[facility] ([facility])[address] [place] [address] Immature granulocytes (Bld) [#/Vol] 0.05 10*3/uL Normal 0.00-0.20 [facility] Comment on above: Performed By: #### L [id number] ####[facility] ([facility])[address] [place] [address] Immature granulocytes/100 WBC (Bld) 0.7 % Normal 0.0-1.0 [facility] Comment on above: Performed By: #### L [id number] ####[facility] (BEAK[facility])[address] [place] [address] Lymphocytes (Bld) [#/Vol] 1.52 10*3/uL Normal 1.20-4.00 [facility] Comment on above: Performed By: #### L [id number] ####[facility] ([facility])[address] [place] [address] Lymphocytes/100 WBC (Bld) 22.5 % Normal 20.0-45.0 [facility] Comment on above: Performed By: #### L [id number] ####[facility] ([facility])[address] [place] [address] MCH (RBC) [Entitic mass] 29.1 pg Normal 27.0-33.0 [facility] Comment on above: Performed By: #### L [id number] ####[facility] [place] [address] MCV (RBC) [Entitic vol] 95.0 fL Normal 82.0-98.0 [facility] Comment on above: Performed By: #### L [id number] ####[facility] [place] [address] Monocytes (Bld) [#/Vol] 0.74 10*3/uL Normal 0.10-1.00 [facility] Comment on above: Performed By: #### L [id number] ####[facility] ([facility])[address] [place] [address] Monocytes/100 WBC (Bld) 10.9 % Normal 5.0-12.0 [facility] Comment on above: Performed By: #### L [id number] ####[facility] [place] [address] Neutrophils (Bld) [#/Vol] 3.98 10*3/uL Normal 1.60-7.60 [facility] Comment on above: Performed By: #### L [id number] ####[facility] ([facility])[address] [place] [address] Neutrophils/100 WBC (Bld) 59.0 % Normal 40.0-72.0 [facility] Comment on above: Performed By: #### L [id number] ####[facility] ([facility])[address] [place] [address] NRBC (PER 100 WBCS) BY AUTOMATED COUNT 0.0 % Normal 0 [facility] Comment on above: Performed By: #### L [id number] ####[facility] ([facility])[address] [place] [address] PLATELETS (10*3/UL) IN BLOOD AUTOMATED COUNT 251 10*3/uL Normal 150-400 [facility] Comment on above: Performed By: #### L [id number] ####[facility] ([facility])[address] [place] [address] RBC (Bld) [#/Vol] 4.98 10*6/uL Normal 4.20-5.70 [facility] Comment on above: Performed By: #### L [id number] ####[facility] ([facility])[address] [place] [address] WBC (Bld) [#/Vol] 6.76 10*3/uL Normal 4.00-10.60 [facility] Comment on above: Performed By: #### L [id number] ####[facility] ([facility])[address] [place] [address] MAGNESIUMon 09-06-2024 Magnesium [Mass/Vol] 1.6 mg/dL Low 1.9-2.7 [facility] Comment on above: Performed By: #### L [id number] ####[facility] ([facility])[address] [place] [address] NURSNOTEon 09-06-2024 NURSNOTE Signed off to Ian engel RN--with bedside rounding Pt. Cont. To sit up in a chair at bedside Call light within reach [facility] NURSNOTE [facility] NURSNOTE Pt refused to go yeni k to bed at this time Pt. Cont. To sit up in a chair at bedside No c/o of SOB or nausea at this time Resp. Easy @ 18/min [facility] PHOSPHORUSon 09-06-2024 Magnesium [Mass/Vol] 3.4 mg/dL Normal 2.5-5.0 [facility] Comment on above: Performed By: #### L [id number] ####[facility] ([facility])[address] [place] [address] POCT GLUCOSE METER UNSOLICIT ED RESULTSon 09-06-2024 Glucose [Mass/Vol] 255 mg/dL High 70-105 [facility] Comment on above: Order Comment: Waive d Testing in the ED is performed under the ED CLIA certificate #[id number]. Result Comment: [email or web address] Performed By: #### L [id number] ####[facility] ([facility])[address] [place] [address] Glucose [Mass/Vol] 208 mg/dL High 70-105 [facility] Comment on above: Order Comment: Waive d Testing in the ED is performed under the ED CLIA certificate #[id number]. Result Comment: [email or web address] Performed By: #### L [id number] ####[facility] ([facility]ER)[address] [place] [address] Glucose [Mass/Vol] 173 mg/dL High 70-105 [facility] Comment on above: Order Comment: Waive d Testing in the ED is performed under the ED CLIA certificate #[id number]. Result Comment: [email or web address] Performed By: #### L [id number] ####[facility] ([facility])[address] [place] [address] Glucose [Mass/Vol] 210 mg/dL High 70-105 [facility] Comment on above: Order Comment: Waive d Testing in the ED is performed under the ED CLIA certificate #[id number]. Result Comment: [email or web address] Performed By: #### L [id number] ####[facility] ([facility])[address] [place] [address] BASIC METABOLIC PANELon 08-21 Anion gap [Moles/Vol] 8 mmol/L Normal 7-20 [facility] Comment on above: Performed By: #### L [id number] ####[facility] ([facility])[address] [place] [address] Calcium [Mass/Vol] 9.9 mg/dL Normal 8.6-10.3 [facility] Comment on above: Performed By: #### L [id number] ####[facility] ([facility])[address] [place] [address] Chloride [Moles/Vol] 98 mmol/L Normal 98-107 [facility] Comment on above: Performed By: #### L [id number] ####[facility] ([facility])[address] [place] [address] CO2 [Moles/Vol] 33 mmol/L High 21-31 [facility] Comment on above: Performed By: #### L [id number] ####[facility] ([facility])[address] [place] [address] Creatinine [Mass/Vol] 0.90 mg/dL Normal 0.70-1.30 [facility] Comment on above: Performed By: #### L [id number] ####[facility] ([facility])[address] [place] [address] GLOMERULAR FILTRATION RATE ML/MIN/1.73 SQ M.PREDICTED 94.8 mL/min/1.73m*2 Normal >60.[address] [facility] Comment on above: Result Comment: [facility]???s estimated glomerular filtration rate (eGFR) will [...] of individuals. Performed By: #### L [id number] ####[facility] [place] [address] Glucose [Mass/Vol] 142 mg/dL High 70-100 [facility] Comment on above: Performed By: #### L [id number] ####[facility] ([facility] [place] [address] Potassium [Moles/Vol] 4.1 mmol/L Normal 3.5-5.1 [facility] Comment on above: Performed By: #### L [id number] ####[facility] ([facility])[address] [place] [address] Sodium [Moles/Vol] 135 mmol/L Low 136-145 [facility] Comment on above: Performed By: #### L [id number] ####[facility] ([facility])[address] [place] [address] Urea nitrogen [Mass/Vol] 19 mg/dL Normal 7-25 [facility] Comment on above: Performed By: #### L [id number] ####[facility] ([facility])[address] [place] [address] UREA NITROGEN/CREATININE (MASS RATIO) IN SER/PLAS 21.1 Normal [facility] Comment on above: Performed By: #### L [id number] ####[facility] ([facility])[address] [place] [address] CBC WITH AUTO DIFFERENTIALon 09-05-2024 Basophils (Bld) [#/Vol] 0.07 10*3/uL Normal 0.00-0.20 [facility] Comment on above: Performed By: #### L [id number] ####[facility] ([facility])[address] [place] [address] Basophils/100 WBC (Bld) 0.9 % Normal 0.0-1.0 [facility] Comment on above: Performed By: #### L [id number] ####[facility] ([facility])[address] [place] [address] Eosinophils (Bld) [#/Vol] 0.38 10*3/uL Normal 0.00-0.50 [facility] Comment on above: Performed By: #### L [id number] ####[facility] ([facility])[address] [facility] [place] [address] Eosinophils/100 WBC (Bld) 5.0 % Normal 0.0-6.0 [facility] Comment on above: Performed By: #### L [id number] ####[facility] ([facility])[address] [place] [address] Erythrocyte distribution width (RBC) [Ratio] 15.2 % High 11.5-15.0 [facility] Comment on above: Performed By: #### L [id number] ####[facility] ([facility] [place] [address] ERYTHROCYTE MEAN CORPUSCULAR HEMOGLOBIN CONCENTRATION (G/DL) BY AUTOMATED 31.4 g/dL Low 32.0-35.0 [facility] Comment on above: Performed By: #### L [id number] ####[facility] ([facility])[address] [place] [address] Hematocrit (Bld) [Volume fraction] 47.1 % Normal 39.0-55.0 [facility] Comment on above: Performed By: #### L [id number] ####[facility] ([facility] [place] [address] Hemoglobin (Bld) [Mass/Vol] 14.8 g/dL Normal 13.0-17.0 [facility] Comment on above: Performed By: #### L [id number] ####[facility] ([facility])[address] [place] [address] Immature granulocytes (Bld) [#/Vol] 0.06 10*3/uL Normal 0.00-0.20 [facility] Comment on above: Performed By: #### L [id number] ####[facility] ([facility])[address] [place] [address] Immature granulocytes/100 WBC (Bld) 0.8 % Normal 0.0-1.0 [facility] Comment on above: Performed By: #### L [id number] ####[facility] ([facility])[address] [place] [address] Lymphocytes (Bld) [#/Vol] 1.99 10*3/uL Normal 1.20-4.00 [facility] Comment on above: Performed By: #### L [id number] ####[facility] ([facility])[address] [place] [address] Lymphocytes/100 WBC (Bld) 26.0 % Normal 20.0-45.0 [facility] Comment on above: Performed By: #### L [id number] ####[facility] ([facility])[address] [place] [address] MCH (RBC) [Entitic mass] 28.8 pg Normal 27.0-33.0 [facility] Comment on above: Performed By: #### L [id number] ####[facility] ([facility])[address] [place] [address] MCV (RBC) [Entitic vol] 91.6 fL Normal 82.0-98.0 [facility] Comment on above: Performed By: #### L [id number] ####[facility] ([facility])[address] [place] [address] Monocytes (Bld) [#/Vol] 0.77 10*3/uL Normal 0.10-1.00 [facility] Comment on above: Performed By: #### L [id number] ####[facility] ([facility])[address] [place] [address] Monocytes/100 WBC (Bld) 10.1 % Normal 5.0-12.0 [facility] Comment on above: Performed By: #### L [id number] ####[facility] ([facility])[address] [place] [address] Neutrophils (Bld) [#/Vol] 4.39 10*3/uL Normal 1.60-7.60 [facility] Comment on above: Performed By: #### L [id number] ####[facility] ([facility])[address] [place] [address] Neutrophils/100 WBC (Bld) 57.2 % Normal 40.0-72.0 [facility] Comment on above: Performed By: #### L [id number] ####[facility] ([facility])[address] [place] [address] NRBC (PER 100 WBCS) BY AUTOMATED COUNT 0.0 % Normal 0 [facility] Comment on above: Performed By: #### L [id number] ####[facility] ([facility])[address] [place] [address] PLATELETS (10*3/UL) IN BLOOD AUTOMATED COUNT 274 10*3/uL Normal 150-400 [facility] Comment on above: Performed By: #### L [id number] ####[facility] ([facility])[address] [place] [address] RBC (Bld) [#/Vol] 5.14 10*6/uL Normal 4.20-5.70 [facility] Comment on above: Performed By: #### L [id number] ####[facility] ([facility])[address] [place] [address] WBC (Bld) [#/Vol] 7.66 10*3/uL Normal 4.00-10.60 [facility] Comment on above: Performed By: #### L [id number] ####[facility] ([facility])[address] [place] [address] MAGNESIUMon 09-05-2024 Magnesium [Mass/Vol] 1.6 mg/dL Low 1.9-2.7 [facility] Comment on above: Performed By: #### L [id number] ####[facility] ([facility])[address] [place] [address] PHOSPHORUSon 09-05-2024 Magnesium [Mass/Vol] 2.8 mg/dL Normal 2.5-5.0 [facility] Comment on above: Performed By: #### L [id number] ####[facility] ([facility])[address] [place] [address] POCT GLUCOSE METER UNSOLICIT ED RESULTSon 09-05-2024 Glucose [Mass/Vol] 221 mg/dL High 70-105 [facility] Comment on above: Order Comment: Waive d Testing in the ED is performed under the ED CLIA certificate #[id number]. Result Comment: [email or web address] [email or web address] Performed By: #### L [id number] ####[facility] ([facility])[address] [place] [address] Glucose [Mass/Vol] 204 mg/dL High 70-105 [facility] Comment on above: Order Comment: Waive d Testing in the ED is performed under the ED CLIA certificate #[id number]. Result Comment: [email or web address] Performed By: #### L [id number] ####[facility] ([facility])[address] [place] [address] Glucose [Mass/Vol] 222 mg/dL High 70-105 [facility] Comment on above: Order Comment: Waive d Testing in the ED is performed under the ED CLIA certificate #[id number]. Result Comment: [email or web address] Performed By: #### L [id number] ####[facility] ([facility])[address] [place] [address] Glucose [Mass/Vol] 141 mg/dL High 70-105 [facility] Comment on above: Order Comment: Waive d Testing in the ED is performed under the ED CLIA certificate #[id number]. Result Comment: [email or web address] Performed By: #### L [id number] ####[facility] ([facility])[address] [place] [address] 30on 09-04-2024 30 Normal [facility] BASIC METABOLIC PANELon 08-21 Anion gap [Moles/Vol] 7 mmol/L Normal 7-20 [facility] Comment on above: Performed By: #### L [id number] ####[facility] ([facility])[address] [place] [address] Calcium [Mass/Vol] 9.6 mg/dL Normal 8.6-10.3 [facility] Comment on above: Performed By: #### L [id number] ####[facility] ([facility])[address] [place] [address] Chloride [Moles/Vol] 98 mmol/L Normal 98-107 [facility] Comment on above: Performed By: #### L [id number] ####[facility] ([facility])[address] [place] [address] CO2 [Moles/Vol] 35 mmol/L High 21-31 [facility] Comment on above: Performed By: #### L [id number] ####[facility] ([facility])[address] [place] [address] Creatinine [Mass/Vol] 0.88 mg/dL Normal 0.70-1.30 [facility] Comment on above: Performed By: #### L [id number] ####[facility] ([facility])[address] [place] [address] GLOMERULAR FILTRATION RATE ML/MIN/1.73 SQ M.PREDICTED 95.4 mL/min/1.73m*2 Normal >60.[address] [facility] Comment on above: Result Comment: [facility]???s estimated glomerular filtration rate (eGFR) will [...] of individuals. Performed By: #### L [id number] ####[facility] ([facility])[address] [place] [address] Glucose [Mass/Vol] 155 mg/dL High 70-100 [facility] Comment on above: Performed By: #### L [id number] ####[facility] ([facility])[address] [place] [address] Potassium [Moles/Vol] 4.3 mmol/L Normal 3.5-5.1 [facility] Comment on above: Performed By: #### L [id number] ####[facility] ([facility])[address] [facility] [place] [address] Sodium [Moles/Vol] 136 mmol/L Normal 136-145 [facility] Comment on above: Performed By: #### L [id number] ####[facility] ([facility])[address] [place] [address] Urea nitrogen [Mass/Vol] 22 mg/dL Normal 7-25 [facility] Comment on above: Performed By: #### L [id number] ####[facility] ([facility])[address] [place] [address] UREA NITROGEN/CREATININE (MASS RATIO) IN SER/PLAS 25.0 Normal [facility] Comment on above: Performed By: #### L [id number] ####[facility] ([facility])[address] [place] [address] CBC WITH AUTO DIFFERENTIALon 09-04-2024 Basophils (Bld) [#/Vol] 0.06 10*3/uL Normal 0.00-0.20 [facility] Comment on above: Performed By: #### L [id number] ####[facility] ([facility])[address] [place] [address] Basophils/100 WBC (Bld) 1.0 % Normal 0.0-1.0 [facility] Comment on above: Performed By: #### L [id number] ####[facility] ([facility])[address] [place] [address] Eosinophils (Bld) [#/Vol] 0.38 10*3/uL Normal 0.00-0.50 [facility] Comment on above: Performed By: #### L [id number] ####[facility] [place] [address] Eosinophils/100 WBC (Bld) 6.1 % High 0.0-6.0 [facility] Comment on above: Performed By: #### L [id number] ####[facility] ([facility])[address] [place] [address] Erythrocyte distribution width (RBC) [Ratio] 15.2 % High 11.5-15.0 [facility] Comment on above: Performed By: #### L [id number] ####[facility] ([facility])[address] [place] [address] ERYTHROCYTE MEAN CORPUSCULAR HEMOGLOBIN CONCENTRATION (G/DL) BY AUTOMATED 30.6 g/dL Low 32.0-35.0 [facility] Comment on above: Performed By: #### L [id number] ####[facility] [place] [address] Hematocrit (Bld) [Volume fraction] 48.4 % Normal 39.0-55.0 [facility] Comment on above: Performed By: #### L [id number] ####[facility] ([facility])[address] [place] [address] Hemoglobin (Bld) [Mass/Vol] 14.8 g/dL Normal 13.0-17.0 [facility] Comment on above: Performed By: #### L [id number] ####[facility] [place] [address] Immature granulocytes (Bld) [#/Vol] 0.04 10*3/uL Normal 0.00-0.20 [facility] Comment on above: Performed By: #### L [id number] ####[facility] [place] [address] Immature granulocytes/100 WBC (Bld) 0.6 % Normal 0.0-1.0 [facility] Comment on above: Performed By: #### L [id number] ####[facility] ([facility])[address] [place] [address] Lymphocytes (Bld) [#/Vol] 1.68 10*3/uL Normal 1.20-4.00 [facility] Comment on above: Performed By: #### L [id number] ####[facility] ([facility])[address] [place] [address] Lymphocytes/100 WBC (Bld) 27.1 % Normal 20.0-45.0 [facility] Comment on above: Performed By: #### L [id number] ####[facility] ([facility])[address] [place] [address] MCH (RBC) [Entitic mass] 28.6 pg Normal 27.0-33.0 [facility] Comment on above: Performed By: #### L [id number] ####[facility] [place] [address] MCV (RBC) [Entitic vol] 93.6 fL Normal 82.0-98.0 [facility] Comment on above: Performed By: #### L [id number] ####[facility] [place] [address] Monocytes (Bld) [#/Vol] 0.74 10*3/uL Normal 0.10-1.00 [facility] Comment on above: Performed By: #### L [id number] ####[facility] ([facility])[address] [place] [address] Monocytes/100 WBC (Bld) 11.9 % Normal 5.0-12.0 [facility] Comment on above: Performed By: #### L [id number] ####[facility] ([facility])[address] [place] [address] Neutrophils (Bld) [#/Vol] 3.31 10*3/uL Normal 1.60-7.60 [facility] Comment on above: Performed By: #### L [id number] ####[facility] ([facility])[address] [place] [address] Neutrophils/100 WBC (Bld) 53.3 % Normal 40.0-72.0 [facility] Comment on above: Performed By: #### L [id number] ####[facility] [place] [address] NRBC (PER 100 WBCS) BY AUTOMATED COUNT 0.0 % Normal 0 [facility] Comment on above: Performed By: #### L [id number] ####[facility] [place] [address] PLATELETS (10*3/UL) IN BLOOD AUTOMATED COUNT 254 10*3/uL Normal 150-400 [facility] Comment on above: Performed By: #### L [id number] ####[facility] [place] [address] RBC (Bld) [#/Vol] 5.17 10*6/uL Normal 4.20-5.70 [facility] Comment on above: Performed By: #### L [id number] ####[facility] ([facility])[address] [place] [address] WBC (Bld) [#/Vol] 6.21 10*3/uL Normal 4.00-10.60 [facility] Comment on above: Performed By: #### L [id number] ####[facility] ([facility])[address] [place] [address] POCT GLUCOSE METER UNSOLICIT ED RESULTSon 09-04-2024 Glucose [Mass/Vol] 219 mg/dL High 70-105 [facility] Comment on above: Order Comment: Waive d Testing in the ED is performed under the ED CLIA certificate #[id number]. Result Comment: [email or web address] Performed By: #### L [id number] ####[facility] ([facility])[address] [place] [address] Glucose [Mass/Vol] 156 mg/dL High 70-105 [facility] Comment on above: Order Comment: Waive d Testing in the ED is performed under the ED CLIA certificate #[id number]. Result Comment: [email or web address] Performed By: #### L [id number] ####[facility] ([facility])[address] [place] [address] Glucose [Mass/Vol] 190 mg/dL High 70-105 [facility] Comment on above: Order Comment: Waive d Testing in the ED is performed under the ED CLIA certificate #[id number]. Result Comment: [email or web address] Performed By: #### L [id number] ####[facility] [place] [address] Glucose [Mass/Vol] 149 mg/dL High 70-105 [facility] Comment on above: Order Comment: Waive d Testing in the ED is performed under the ED CLIA certificate #[id number]. Result Comment: [email or web address] Performed By: #### L [id number] ####[facility] ([facility])[address] [place] [address] 30on 09-03-2024 30 Normal [facility] BASIC METABOLIC PANELon 08-21 Anion gap [Moles/Vol] 11 mmol/L Normal 7-20 [facility] Comment on above: Performed By: #### L [id number] ####[facility] ([facility])[address] [place] [address] Calcium [Mass/Vol] 9.7 mg/dL Normal 8.6-10.3 [facility] Comment on above: Performed By: #### L [id number] ####[facility] ([facility])[address] [place] [address] Chloride [Moles/Vol] 96 mmol/L Low 98-107 [facility] Comment on above: Performed By: #### L [id number] ####[facility] ([facility])[address] [place] [address] CO2 [Moles/Vol] 33 mmol/L High 21-31 [facility] Comment on above: Performed By: #### L [id number] ####[facility] ([facility])[address] [place] [address] Creatinine [Mass/Vol] 0.87 mg/dL Normal 0.70-1.30 [facility] Comment on above: Performed By: #### L [id number] ####[facility] ([facility])[address] [place] [address] GLOMERULAR FILTRATION RATE ML/MIN/1.73 SQ M.PREDICTED 95.8 mL/min/1.73m*2 Normal >60.[address] [facility] Comment on above: Result Comment: [facility]???s estimated glomerular filtration rate (eGFR) will [...] of individuals. Performed By: #### L [id number] ####[facility] ([facility])[address] [place] [address] Glucose [Mass/Vol] 161 mg/dL High 70-100 [facility] Comment on above: Performed By: #### L [id number] ####[facility] ([facility])[address] [place] [address] Potassium [Moles/Vol] 4.2 mmol/L Normal 3.5-5.1 [facility] Comment on above: Performed By: #### L [id number] ####[facility] ([facility])[address] [facility] [place] [address] Sodium [Moles/Vol] 136 mmol/L Normal 136-145 [facility] Comment on above: Performed By: #### L [id number] ####[facility] ([facility])[address] [place] [address] Urea nitrogen [Mass/Vol] 23 mg/dL Normal 7-25 [facility] Comment on above: Performed By: #### L [id number] ####[facility] ([facility])[address] [place] [address] UREA NITROGEN/CREATININE (MASS RATIO) IN SER/PLAS 26.4 Normal [facility] Comment on above: Performed By: #### L [id number] ####[facility] ([facility])[address] [place] [address] CBC WITH AUTO DIFFERENTIALon 09-03-2024 Basophils (Bld) [#/Vol] 0.07 10*3/uL Normal 0.00-0.20 [facility] Comment on above: Performed By: #### L [id number] ####[facility] ([facility])[address] [place] [address] Basophils/100 WBC (Bld) 0.8 % Normal 0.0-1.0 [facility] Comment on above: Performed By: #### L [id number] ####[facility] ([facility])[address] [place] [address] Eosinophils (Bld) [#/Vol] 0.40 10*3/uL Normal 0.00-0.50 [facility] Comment on above: Performed By: #### L [id number] ####[facility] ([facility])[address] [place] [address] Eosinophils/100 WBC (Bld) 4.8 % Normal 0.0-6.0 [facility] Comment on above: Performed By: #### L [id number] ####[facility] ([facility])[address] [place] [address] Erythrocyte distribution width (RBC) [Ratio] 15.3 % High 11.5-15.0 [facility] Comment on above: Performed By: #### L [id number] ####[facility] ([facility])[address] [place] [address] ERYTHROCYTE MEAN CORPUSCULAR HEMOGLOBIN CONCENTRATION (G/DL) BY AUTOMATED 31.8 g/dL Low 32.0-35.0 [facility] Comment on above: Performed By: #### L [id number] ####[facility] ([facility])[address] [place] [address] Hematocrit (Bld) [Volume fraction] 46.8 % Normal 39.0-55.0 [facility] Comment on above: Performed By: #### L [id number] ####[facility] ([facility])[address] [place] [address] Hemoglobin (Bld) [Mass/Vol] 14.9 g/dL Normal 13.0-17.0 [facility] Comment on above: Performed By: #### L [id number] ####[facility] ([facility])[address] [place] [address] Immature granulocytes (Bld) [#/Vol] 0.05 10*3/uL Normal 0.00-0.20 [facility] Comment on above: Performed By: #### L [id number] ####[facility] ([facility])[address] [place] [address] Immature granulocytes/100 WBC (Bld) 0.6 % Normal 0.0-1.0 [facility] Comment on above: Performed By: #### L [id number] ####[facility] ([facility])[address] [place] [address] Lymphocytes (Bld) [#/Vol] 1.73 10*3/uL Normal 1.20-4.00 [facility] Comment on above: Performed By: #### L [id number] ####[facility] ([facility])[address] [place] [address] Lymphocytes/100 WBC (Bld) 20.9 % Normal 20.0-45.0 [facility] Comment on above: Performed By: #### L [id number] ####[facility] ([facility])[address] [place] [address] MCH (RBC) [Entitic mass] 29.3 pg Normal 27.0-33.0 [facility] Comment on above: Performed By: #### L [id number] ####[facility] ([facility])[address] [place] [address] MCV (RBC) [Entitic vol] 91.9 fL Normal 82.0-98.0 [facility] Comment on above: Performed By: #### L [id number] ####[facility] ([facility])[address] [place] [address] Monocytes (Bld) [#/Vol] 0.96 10*3/uL Normal 0.10-1.00 [facility] Comment on above: Performed By: #### L [id number] ####[facility] ([facility])[address] [place] [address] Monocytes/100 WBC (Bld) 11.6 % Normal 5.0-12.0 [facility] Comment on above: Performed By: #### L [id number] ####[facility] ([facility])[address] [place] [address] Neutrophils (Bld) [#/Vol] 5.06 10*3/uL Normal 1.60-7.60 [facility] Comment on above: Performed By: #### L [id number] ####[facility] ([facility])[address] [place] [address] Neutrophils/100 WBC (Bld) 61.3 % Normal 40.0-72.0 [facility] Comment on above: Performed By: #### L [id number] ####[facility] ([facility])[address] [place] [address] NRBC (PER 100 WBCS) BY AUTOMATED COUNT 0.0 % Normal 0 [facility] Comment on above: Performed By: #### L [id number] ####[facility] ([facility])[address] [place] [address] PLATELETS (10*3/UL) IN BLOOD AUTOMATED COUNT 264 10*3/uL Normal 150-400 [facility] Comment on above: Performed By: #### L [id number] ####[facility] ([facility])[address] [address] RBC (Bld) [#/Vol] 5.09 10*6/uL Normal 4.20-5.70 [facility] Comment on above: Performed By: #### L [id number] ####[facility] ([facility])[address] [address] WBC (Bld) [#/Vol] 8.27 10*3/uL Normal 4.00-10.60 [facility] Comment on above: Performed By: #### L [id number] ####[facility] ([facility])[address] [place] [address] MAGNESIUMon 09-03-2024 Magnesium [Mass/Vol] 1.6 mg/dL Low 1.9-2.7 [facility] Comment on above: Performed By: #### L [id number] ####[facility] ([facility])[address] [place] [address] PHOSPHORUSon 09-03-2024 Magnesium [Mass/Vol] 3.3 mg/dL Normal 2.5-5.0 [facility] Comment on above: Performed By: #### L [id number] ####[facility] ([facility])[address] [place] [address] POCT GLUCOSE METER UNSOLICIT ED RESULTSon 09-03-2024 Glucose [Mass/Vol] 168 mg/dL High 70-105 [facility] Comment on above: Order Comment: Waive d Testing in the ED is performed under the ED CLIA certificate #[id number]. Result Comment: [email or web address] Performed By: #### L [id number] ####[facility] ([facility])[address] [place] [address] Glucose [Mass/Vol] 184 mg/dL High 70-105 [facility] Comment on above: Order Comment: Waive d Testing in the ED is performed under the ED CLIA certificate #[id number]. Result Comment: [email or web address] Performed By: #### L [id number] ####[facility] ([facility])[address] [place] [address] Glucose [Mass/Vol] 205 mg/dL High 70-105 [facility] Comment on above: Order Comment: Waive d Testing in the ED is performed under the ED CLIA certificate #[id number]. Result Comment: [email or web address] Performed By: #### L [id number] ####[facility] ([facility])[address] [place] [address] Glucose [Mass/Vol] 145 mg/dL High 70-105 [facility] Comment on above: Order Comment: Waive d Testing in the ED is performed under the ED CLIA certificate #[id number]. Result Comment: [email or web address] Performed By: #### L [id number] ####[facility] ([facility])[address] [place] [address] 30on 09-02-2024 30 Normal [facility] BASIC METABOLIC PANELon 08-21 Anion gap [Moles/Vol] 8 mmol/L Normal 7-20 [facility] Comment on above: Performed By: #### L [id number] ####[facility] ([facility])[address] [place] [address] Calcium [Mass/Vol] 9.5 mg/dL Normal 8.6-10.3 [facility] Comment on above: Performed By: #### L [id number] ####[facility] ([facility])[address] [place] [address] Chloride [Moles/Vol] 99 mmol/L Normal 98-107 [facility] Comment on above: Performed By: #### L [id number] ####[facility] ([facility])[address] [place] [address] CO2 [Moles/Vol] 37 mmol/L High 21-31 [facility] Comment on above: Performed By: #### L [id number] ####[facility] ([facility])[address] [place] [address] Creatinine [Mass/Vol] 0.77 mg/dL Normal 0.70-1.30 [facility] Comment on above: Performed By: #### L [id number] ####[facility] ([facility])[address] [place] [address] GLOMERULAR FILTRATION RATE ML/MIN/1.73 SQ M.PREDICTED 99.4 mL/min/1.73m*2 Normal >60.[address] [facility] Comment on above: Result Comment: [facility]???s estimated glomerular filtration rate (eGFR) will [...] of individuals. Performed By: #### L [id number] ####[facility] ([facility])[address] [place] [address] Glucose [Mass/Vol] 160 mg/dL High 70-100 [facility] Comment on above: Performed By: #### L [id number] ####[facility] ([facility])[address] [place] [address] Potassium [Moles/Vol] 4.1 mmol/L Normal 3.5-5.1 [facility] Comment on above: Performed By: #### L [id number] ####[facility] ([facility])[address] [place] [address] Sodium [Moles/Vol] 140 mmol/L Normal 136-145 [facility] Comment on above: Performed By: #### L [id number] ####[facility] ([facility])[address] [place] [address] Urea nitrogen [Mass/Vol] 16 mg/dL Normal 7-25 [facility] Comment on above: Performed By: #### L [id number] ####[facility] ([facility])[address] [place] [address] UREA NITROGEN/CREATININE (MASS RATIO) IN SER/PLAS 20.8 Normal [facility] Comment on above: Performed By: #### L [id number] ####[facility] ([facility])[address] [place] [address] CBC WITH AUTO DIFFERENTIALon 09-02-2024 Basophils (Bld) [#/Vol] 0.07 10*3/uL Normal 0.00-0.20 [facility] Comment on above: Performed By: #### L [id number] ####[facility] ([facility])[address] [place] [address] Basophils/100 WBC (Bld) 1.0 % Normal 0.0-1.0 [facility] Comment on above: Performed By: #### L [id number] ####[facility] ([facility])[address] [place] [address] Eosinophils (Bld) [#/Vol] 0.34 10*3/uL Normal 0.00-0.50 [facility] Comment on above: Performed By: #### L [id number] ####[facility] ([facility])[address] [place] [address] Eosinophils/100 WBC (Bld) 5.0 % Normal 0.0-6.0 [facility] Comment on above: Performed By: #### L [id number] ####[facility] ([facility])[address] [place] [address] Erythrocyte distribution width (RBC) [Ratio] 15.1 % High 11.5-15.0 [facility] Comment on above: Performed By: #### L [id number] ####[facility] ([facility])[address] [place] [address] ERYTHROCYTE MEAN CORPUSCULAR HEMOGLOBIN CONCENTRATION (G/DL) BY AUTOMATED 31.0 g/dL Low 32.0-35.0 [facility] Comment on above: Performed By: #### L [id number] ####[facility] ([facility])[address] [place] [address] Hematocrit (Bld) [Volume fraction] 46.2 % Normal 39.0-55.0 [facility] Comment on above: Performed By: #### L [id number] ####[facility] [place] [address] Hemoglobin (Bld) [Mass/Vol] 14.3 g/dL Normal 13.0-17.0 [facility] Comment on above: Performed By: #### L [id number] ####[facility] [place] [address] Immature granulocytes (Bld) [#/Vol] 0.04 10*3/uL Normal 0.00-0.20 [facility] Comment on above: Performed By: #### L [id number] ####[facility] ([facility])[address] [place] [address] Immature granulocytes/100 WBC (Bld) 0.6 % Normal 0.0-1.0 [facility] Comment on above: Performed By: #### L [id number] ####[facility] ([facility])[address] [place] [address] Lymphocytes (Bld) [#/Vol] 1.60 10*3/uL Normal 1.20-4.00 [facility] Comment on above: Performed By: #### L [id number] ####[facility] ([facility])[address] [place] [address] Lymphocytes/100 WBC (Bld) 23.7 % Normal 20.0-45.0 [facility] Comment on above: Performed By: #### L [id number] ####[facility] ([facility])[address] [place] [address] MCH (RBC) [Entitic mass] 28.8 pg Normal 27.0-33.0 [facility] Comment on above: Performed By: #### L [id number] ####[facility] ([facility])[address] [place] [address] MCV (RBC) [Entitic vol] 93.1 fL Normal 82.0-98.0 [facility] Comment on above: Performed By: #### L [id number] ####[facility] ([facility])[address] [place] [address] Monocytes (Bld) [#/Vol] 0.86 10*3/uL Normal 0.10-1.00 [facility] Comment on above: Performed By: #### L [id number] ####[facility] ([facility])[address] [facility] [place] [address] Monocytes/100 WBC (Bld) 12.8 % High 5.0-12.0 [facility] Comment on above: Performed By: #### L [id number] ####[facility] ([facility])[address] [place] [address] Neutrophils (Bld) [#/Vol] 3.83 10*3/uL Normal 1.60-7.60 [facility] Comment on above: Performed By: #### L [id number] ####[facility] ([facility])[address] [place] [address] Neutrophils/100 WBC (Bld) 56.9 % Normal 40.0-72.0 [facility] Comment on above: Performed By: #### L [id number] ####[facility] ([facility])[address] [place] [address] NRBC (PER 100 WBCS) BY AUTOMATED COUNT 0.0 % Normal 0 [facility] Comment on above: Performed By: #### L [id number] ####[facility] ([facility])[address] [place] [address] PLATELETS (10*3/UL) IN BLOOD AUTOMATED COUNT 264 10*3/uL Normal 150-400 [facility] Comment on above: Performed By: #### L [id number] ####[facility] ([facility])[address] [place] [address] RBC (Bld) [#/Vol] 4.96 10*6/uL Normal 4.20-5.70 [facility] Comment on above: Performed By: #### L [id number] ####[facility] ([facility])[address] [place] [address] WBC (Bld) [#/Vol] 6.74 10*3/uL Normal 4.00-10.60 [facility] Comment on above: Performed By: #### L [id number] ####[facility] ([facility])[address] [place] [address] NURSNOTEon 09-02-2024 NURSNOTE Normal [facility] NURSNOTE Normal [facility] PHOSPHORUSon 09-02-2024 Magnesium [Mass/Vol] 3.1 mg/dL Normal 2.5-5.0 [facility] Comment on above: Performed By: #### L [id number] ####[facility] ([facility])[address] [place] [address] POCT GLUCOSE METER UNSOLICIT ED RESULTSon 09-02-2024 Glucose [Mass/Vol] 289 mg/dL High 70-105 [facility] Comment on above: Order Comment: Waive d Testing in the ED is performed under the ED CLIA certificate #[id number]. Result Comment: [email or web address] Performed By: #### L [id number] ####[facility] ([facility])[address] [place] [address] Glucose [Mass/Vol] 260 mg/dL High 70-105 [facility] Comment on above: Order Comment: Waive d Testing in the ED is performed under the ED CLIA certificate #[id number]. Result Comment: [email or web address] Performed By: #### L [id number] ####[facility] ([facility])[address] [place] [address] Glucose [Mass/Vol] 204 mg/dL High 70-105 [facility] Comment on above: Order Comment: Waive d Testing in the ED is performed under the ED CLIA certificate #[id number]. Result Comment: [email or web address] Performed By: #### L [id number] ####[facility] ([facility])[address] [place] [address] Glucose [Mass/Vol] 166 mg/dL High 70-105 [facility] Comment on above: Order Comment: Waive d Testing in the ED is performed under the ED CLIA certificate #[id number]. Result Comment: [email or web address] cad Performed By: #### L [id number] ####[facility] ([facility])[address] [place] [address] 30on 09-01-2024 30 Normal [facility] BASIC METABOLIC PANELon 08-21 Anion gap [Moles/Vol] 7 mmol/L Normal 7-20 [facility] Comment on above: Performed By: #### L [id number] ####[facility] ([employer])[address] [place] [address] Calcium [Mass/Vol] 9.1 mg/dL Normal 8.6-10.3 [facility] Comment on above: Performed By: #### L [id number] ####[facility] [place] [address] Chloride [Moles/Vol] 98 mmol/L Normal 98-107 [facility] Comment on above: Performed By: #### L [id number] ####[facility] ([facility])[address] [place] [address] CO2 [Moles/Vol] 36 mmol/L High 21-31 [facility] Comment on above: Performed By: #### L [id number] ####[facility] ([facility])[address] [place] [address] Creatinine [Mass/Vol] 0.84 mg/dL Normal 0.70-1.30 [facility] Comment on above: Performed By: #### L [id number] ####[facility] ([facility])[address] [place] [address] GLOMERULAR FILTRATION RATE ML/MIN/1.73 SQ M.PREDICTED 96.8 mL/min/1.73m*2 Normal >60.[address] [facility] Comment on above: Result Comment: [facility]???s estimated glomerular filtration rate (eGFR) will [...] of individuals. Performed By: #### L [id number] ####[facility] [place] [address] Glucose [Mass/Vol] 190 mg/dL High 70-100 [facility] Comment on above: Performed By: #### L [id number] ####[facility] [place] [address] Potassium [Moles/Vol] 4.1 mmol/L Normal 3.5-5.1 [facility] Comment on above: Performed By: #### L [id number] ####[facility] [place] [address] Sodium [Moles/Vol] 137 mmol/L Normal 136-145 [facility] Comment on above: Performed By: #### L [id number] ####[facility] [place] [address] Urea nitrogen [Mass/Vol] 18 mg/dL Normal 7-25 [facility] Comment on above: Performed By: #### L [id number] ####[facility] ([facility])[address] [place] [address] UREA NITROGEN/CREATININE (MASS RATIO) IN SER/PLAS 21.4 Normal [facility] Comment on above: Performed By: #### L [id number] ####[facility] [place] [address] CBC WITH AUTO DIFFERENTIALon 09-01-2024 Basophils (Bld) [#/Vol] 0.07 10*3/uL Normal 0.00-0.20 [facility] Comment on above: Performed By: #### L [id number] ####[facility] ([facility])[address] [place] [address] Basophils/100 WBC (Bld) 1.0 % Normal 0.0-1.0 [facility] Comment on above: Performed By: #### L [id number] ####[facility] ([facility])[address] [place] [address] Eosinophils (Bld) [#/Vol] 0.37 10*3/uL Normal 0.00-0.50 [facility] Comment on above: Performed By: #### L [id number] ####[facility] ([facility])[address] [place] [address] Eosinophils/100 WBC (Bld) 5.1 % Normal 0.0-6.0 [facility] Comment on above: Performed By: #### L [id number] ####[facility] ([facility])[address] [place] [address] Erythrocyte distribution width (RBC) [Ratio] 15.1 % High 11.5-15.0 [facility] Comment on above: Performed By: #### L [id number] ####[facility] ([facility])[address] [place] [address] ERYTHROCYTE MEAN CORPUSCULAR HEMOGLOBIN CONCENTRATION (G/DL) BY AUTOMATED 31.3 g/dL Low 32.0-35.0 [facility] Comment on above: Performed By: #### L [id number] ####[facility] ([facility])[address] [place] [address] Hematocrit (Bld) [Volume fraction] 46.3 % Normal 39.0-55.0 [facility] Comment on above: Performed By: #### L [id number] ####[facility] ([facility])[address] [place] [address] Hemoglobin (Bld) [Mass/Vol] 14.5 g/dL Normal 13.0-17.0 [facility] Comment on above: Performed By: #### L [id number] ####[facility] [place] [address] Immature granulocytes (Bld) [#/Vol] 0.04 10*3/uL Normal 0.00-0.20 [facility] Comment on above: Performed By: #### L [id number] ####[facility] [place] [address] Immature granulocytes/100 WBC (Bld) 0.6 % Normal 0.0-1.0 [facility] Comment on above: Performed By: #### L [id number] ####[facility] ([facility])[address] [place] [address] Lymphocytes (Bld) [#/Vol] 1.46 10*3/uL Normal 1.20-4.00 [facility] Comment on above: Performed By: #### L [id number] ####[facility] ([facility])[address] [place] [address] Lymphocytes/100 WBC (Bld) 20.2 % Normal 20.0-45.0 [facility] Comment on above: Performed By: #### L [id number] ####[facility] ([facility])[address] [place] [address] MCH (RBC) [Entitic mass] 29.1 pg Normal 27.0-33.0 [facility] Comment on above: Performed By: #### L [id number] ####[facility] ([facility])[address] [place] [address] MCV (RBC) [Entitic vol] 92.8 fL Normal 82.0-98.0 [facility] Comment on above: Performed By: #### L [id number] ####[facility] ([facility])[address] [place] [address] Monocytes (Bld) [#/Vol] 0.85 10*3/uL Normal 0.10-1.00 [facility] Comment on above: Performed By: #### L [id number] ####[facility] ([facility])[address] [place] [address] Monocytes/100 WBC (Bld) 11.8 % Normal 5.0-12.0 [facility] Comment on above: Performed By: #### L [id number] ####[facility] ([facility])[address] [place] [address] Neutrophils (Bld) [#/Vol] 4.43 10*3/uL Normal 1.60-7.60 [facility] Comment on above: Performed By: #### L [id number] ####[facility] ([facility])[address] [place] [address] Neutrophils/100 WBC (Bld) 61.3 % Normal 40.0-72.0 [facility] Comment on above: Performed By: #### L [id number] ####[facility] ([facility])[address] [place] [address] NRBC (PER 100 WBCS) BY AUTOMATED COUNT 0.0 % Normal 0 [facility] Comment on above: Performed By: #### L [id number] ####[facility] ([facility])[address] [place] [address] PLATELETS (10*3/UL) IN BLOOD AUTOMATED COUNT 268 10*3/uL Normal 150-400 [facility] Comment on above: Performed By: #### L [id number] ####[facility] ([facility])[address] [place] [address] RBC (Bld) [#/Vol] 4.99 10*6/uL Normal 4.20-5.70 [facility] Comment on above: Performed By: #### L [id number] ####[facility] ([facility])[address] [place] [address] WBC (Bld) [#/Vol] 7.22 10*3/uL Normal 4.00-10.60 [facility] Comment on above: Performed By: #### L [id number] ####[facility] ([facility])[address] [place] [address] MAGNESIUMon 09-01-2024 Magnesium [Mass/Vol] 1.8 mg/dL Low 1.9-2.7 [facility] Comment on above: Performed By: #### L [id number] ####[facility] ([facility])[address] [place] [address] POCT GLUCOSE METER UNSOLICIT ED RESULTSon 09-01-2024 Glucose [Mass/Vol] 225 mg/dL High 70-105 [facility] Comment on above: Order Comment: Waive d Testing in the ED is performed under the ED CLIA certificate #[id number]. Result Comment: [email or web address] kol Performed By: #### L [id number] ####[facility] ([facility])[address] [place] [address] Glucose [Mass/Vol] 181 mg/dL High 70-105 [facility] Comment on above: Order Comment: Waive d Testing in the ED is performed under the ED CLIA certificate #[id number]. Result Comment: [email or web address] Performed By: #### L [id number] ####[facility] (BEAKER)[address] [place] [address] Glucose [Mass/Vol] 209 mg/dL High 70-105 [facility] Comment on above: Order Comment: Waive d Testing in the ED is performed under the ED CLIA certificate #[id number]. Result Comment: [email or web address] Performed By: #### L [id number] ####[facility] (BEAKER)[address] [place] [address] Glucose [Mass/Vol] 181 mg/dL High 70-105 [facility] Comment on above: Order Comment: Waive d Testing in the ED is performed under the ED CLIA certificate #[id number]. Result Comment: [email or web address] Performed By: #### L [id number] ####[facility] (BEAKER)[address] [place] [address] 30on 08-31-2024 30 Normal [facility] 30 Normal [facility] BASIC METABOLIC PANELon 08-21 Anion gap [Moles/Vol] 8 mmol/L Normal 7-20 [facility] Comment on above: Performed By: #### L [id number] ####[facility] (BEAKER)[address] [place] [address] Calcium [Mass/Vol] 9.6 mg/dL Normal 8.6-10.3 [facility] Comment on above: Performed By: #### L [id number] ####[facility] (BEAKER)[address] [place] [address] Chloride [Moles/Vol] 97 mmol/L Low 98-107 [facility] Comment on above: Performed By: #### L [id number] ####[facility] (BEAKER)[address] [place] [address] CO2 [Moles/Vol] 35 mmol/L High 21-31 [facility] Comment on above: Performed By: #### L [id number] ####[facility] ([facility])[address] [place] [address] Creatinine [Mass/Vol] 0.85 mg/dL Normal 0.70-1.30 [facility] Comment on above: Performed By: #### L [id number] ####[facility] ([facility])[address] [place] [address] GLOMERULAR FILTRATION RATE ML/MIN/1.73 SQ M.PREDICTED 96.4 mL/min/1.73m*2 Normal >60.[address] [facility] Comment on above: Result Comment: [facility]???s estimated glomerular filtration rate (eGFR) will [...] of individuals. Performed By: #### L [id number] ####[facility] ([facility])[address] [place] [address] Glucose [Mass/Vol] 205 mg/dL High 70-100 [facility] Comment on above: Performed By: #### L [id number] ####[facility] ([facility])[address] [place] [address] Potassium [Moles/Vol] 3.9 mmol/L Normal 3.5-5.1 [facility] Comment on above: Performed By: #### L [id number] ####[facility] ([facility])[address] [place] [address] Sodium [Moles/Vol] 136 mmol/L Normal 136-145 [facility] Comment on above: Performed By: #### L [id number] ####[facility] (BEAKER)[address] [place] [address] Urea nitrogen [Mass/Vol] 21 mg/dL Normal 7-25 [facility] Comment on above: Performed By: #### L [id number] ####[facility] (BEAKER)[address] [address] UREA NITROGEN/CREATININE (MASS RATIO) IN SER/PLAS 24.7 Normal [facility] Comment on above: Performed By: #### L [id number] ####[facility] (BEAKER)[address] [address] CBC WITH AUTO DIFFERENTIALon 08-31-2024 Basophils (Bld) [#/Vol] 0.06 10*3/uL Normal 0.00-0.20 [facility] Comment on above: Performed By: #### L [id number] ####[facility] [place] [address] Basophils/100 WBC (Bld) 0.8 % Normal 0.0-1.0 [facility] Comment on above: Performed By: #### L [id number] ####[facility] (BEAKER)[address] [place] [address] Eosinophils (Bld) [#/Vol] 0.38 10*3/uL Normal 0.00-0.50 [facility] Comment on above: Performed By: #### L [id number] ####[facility] (BEAKER)[address] [place], [place] [address] Eosinophils/100 WBC (Bld) 5.3 % Normal 0.0-6.0 [facility] Comment on above: Performed By: #### L [id number] ####[facility] (BEAKER)[address] [place] [address] Erythrocyte distribution width (RBC) [Ratio] 15.2 % High 11.5-15.0 [facility] Comment on above: Performed By: #### L [id number] ####[facility] (BEAKER)[address] [place] [address] ERYTHROCYTE MEAN CORPUSCULAR HEMOGLOBIN CONCENTRATION (G/DL) BY AUTOMATED 30.4 g/dL Low 32.0-35.0 [facility] Comment on above: Performed By: #### L [id number] ####[facility] (BEAKER)[address] [place] [address] Hematocrit (Bld) [Volume fraction] 48.3 % Normal 39.0-55.0 [facility] Comment on above: Performed By: #### L [id number] ####[facility] (BEAKER)[address] [place] [address] Hemoglobin (Bld) [Mass/Vol] 14.7 g/dL Normal 13.0-17.0 [facility] Comment on above: Performed By: #### L [id number] ####[facility] (BEAKER)[address] [place] [address] Immature granulocytes (Bld) [#/Vol] 0.06 10*3/uL Normal 0.00-0.20 [facility] Comment on above: Performed By: #### L [id number] ####[facility] (BEAKER)[address] [place] [address] Immature granulocytes/100 WBC (Bld) 0.8 % Normal 0.0-1.0 [facility] Comment on above: Performed By: #### L [id number] ####[facility] (BEAKER)[address] [place] [address] Lymphocytes (Bld) [#/Vol] 1.17 10*3/uL Low 1.20-4.00 [facility] Comment on above: Performed By: #### L [id number] ####[facility] (BEAKER)[address] [place] [address] Lymphocytes/100 WBC (Bld) 16.3 % Low 20.0-45.0 [facility] Comment on above: Performed By: #### L [id number] ####[facility] (BEAKER)[address] [place] [address] MCH (RBC) [Entitic mass] 29.0 pg Normal 27.0-33.0 [facility] Comment on above: Performed By: #### L [id number] ####[facility] ([facility])[address] [place] [address] MCV (RBC) [Entitic vol] 95.3 fL Normal 82.0-98.0 [facility] Comment on above: Performed By: #### L [id number] ####[facility] ([facility])[address] [place] [address] Monocytes (Bld) [#/Vol] 0.82 10*3/uL Normal 0.10-1.00 [facility] Comment on above: Performed By: #### L [id number] ####[facility] ([facility])[address] [place] [address] Monocytes/100 WBC (Bld) 11.4 % Normal 5.0-12.0 [facility] Comment on above: Performed By: #### L [id number] ####[facility] ([facility])[address] [place] [address] Neutrophils (Bld) [#/Vol] 4.70 10*3/uL Normal 1.60-7.60 [facility] Comment on above: Performed By: #### L [id number] ####[facility] ([facility])[address] [place] [address] Neutrophils/100 WBC (Bld) 65.4 % Normal 40.0-72.0 [facility] Comment on above: Performed By: #### L [id number] ####[facility] ([facility])[address] [place] [address] NRBC (PER 100 WBCS) BY AUTOMATED COUNT 0.0 % Normal 0 [facility] Comment on above: Performed By: #### L [id number] ####[facility] [place] [address] PLATELETS (10*3/UL) IN BLOOD AUTOMATED COUNT 278 10*3/uL Normal 150-400 [facility] Comment on above: Performed By: #### L [id number] ####[facility] ([facility])[address] [place] [address] RBC (Bld) [#/Vol] 5.07 10*6/uL Normal 4.20-5.70 [facility] Comment on above: Performed By: #### L [id number] ####[facility] ([facility])[address] [place] [address] WBC (Bld) [#/Vol] 7.19 10*3/uL Normal 4.00-10.60 [facility] Comment on above: Performed By: #### L [id number] ####[facility] ([facility])[address] [place] [address] MAGNESIUMon 08-31-2024 Magnesium [Mass/Vol] 1.6 mg/dL Low 1.9-2.7 [facility] Comment on above: Performed By: #### L [id number] ####[facility] ([facility])[address] [place] [address] POCT GLUCOSE METER UNSOLICIT ED RESULTSon 08-31-2024 Glucose [Mass/Vol] 281 mg/dL High 70-105 [facility] Comment on above: Order Comment: Waive d Testing in the ED is performed under the ED CLIA certificate #[id number]. Result Comment: [email or web address] Performed By: #### L [id number] ####[facility] ([facility])[address] [place] [address] Glucose [Mass/Vol] 157 mg/dL High 70-105 [facility] Comment on above: Order Comment: Waive d Testing in the ED is performed under the ED CLIA certificate #[id number]. Result Comment: [email or web address] Performed By: #### L [id number] ####[facility] ([facility])[address] [place] [address] Glucose [Mass/Vol] 212 mg/dL High 70-105 [facility] Comment on above: Order Comment: Waive d Testing in the ED is performed under the ED CLIA certificate #[id number]. Result Comment: [email or web address] Performed By: #### L [id number] ####[facility] (BEAKER)[address] [place] [address] Glucose [Mass/Vol] 167 mg/dL High 70-105 [facility] Comment on above: Order Comment: Waive d Testing in the ED is performed under the ED CLIA certificate #[id number]. Result Comment: [email or web address] Performed By: #### L [id number] ####[facility] (BEAKER)[address] [place] [address] 30on 08-30-2024 30 Normal [facility] BASIC METABOLIC PANELon 08-21 Anion gap [Moles/Vol] 10 mmol/L Normal 7-20 [facility] Comment on above: Performed By: #### L [id number] ####[facility] (BEAKER)[address] [place] [address] Calcium [Mass/Vol] 10.3 mg/dL Normal 8.6-10.3 [facility] Comment on above: Performed By: #### L [id number] ####[facility] (BEAKER)[address] [place] [address] Chloride [Moles/Vol] 94 mmol/L Low 98-107 [facility] Comment on above: Performed By: #### L [id number] ####[facility] (BEAKER)[address] [place] [address] CO2 [Moles/Vol] 34 mmol/L High 21-31 [facility] Comment on above: Performed By: #### L [id number] ####[facility] (BEAKER)[address] [place] [address] Creatinine [Mass/Vol] 0.98 mg/dL Normal 0.70-1.30 [facility] Comment on above: Performed By: #### L [id number] ####[facility] (BEAKER)[address] [place] [address] GLOMERULAR FILTRATION RATE ML/MIN/1.73 SQ M.PREDICTED 85.6 mL/min/1.73m*2 Normal >60.[address] [facility] Comment on above: Result Comment: [facility]???s estimated glomerular filtration rate (eGFR) will [...] of individuals. Performed By: #### L [id number] ####[facility] ([facility])[address] [facility] [place] [address] Glucose [Mass/Vol] 184 mg/dL High 70-100 [facility] Comment on above: Performed By: #### L [id number] ####[facility] ([facility])[address] [facility] [place] [address] Potassium [Moles/Vol] 4.1 mmol/L Normal 3.5-5.1 [facility] Comment on above: Performed By: #### L [id number] ####[facility] ([facility])[address] [facility] [place] [address] Sodium [Moles/Vol] 134 mmol/L Low 136-145 [facility] Comment on above: Performed By: #### L [id number] ####[facility] ([facility])[address] [address] Urea nitrogen [Mass/Vol] 27 mg/dL High 7-25 [facility] Comment on above: Performed By: #### L [id number] ####[facility] ([facility])[address] [facility] [place] [address] UREA NITROGEN/CREATININE (MASS RATIO) IN SER/PLAS 27.6 Normal [facility] Comment on above: Performed By: #### L [id number] ####[facility] ([facility])[address] [place] [address] CBC WITH AUTO DIFFERENTIALon 08-30-2024 Basophils (Bld) [#/Vol] 0.09 10*3/uL Normal 0.00-0.20 [facility] Comment on above: Performed By: #### L [id number] ####[facility] (BEAKER)[address] [place], [place] [address] Basophils/100 WBC (Bld) 1.0 % Normal 0.0-1.0 [facility] Comment on above: Performed By: #### L [id number] ####[facility] (BEAKER)[address] [place], [place] [address] Eosinophils (Bld) [#/Vol] 0.54 10*3/uL High 0.00-0.50 [facility] Comment on above: Performed By: #### L [id number] ####[facility] (BEAKER)[address] [place] [address] Eosinophils/100 WBC (Bld) 5.9 % Normal 0.0-6.0 [facility] Comment on above: Performed By: #### L [id number] ####[facility] (BEAKER)[address] [place] [address] Erythrocyte distribution width (RBC) [Ratio] 14.9 % Normal 11.5-15.0 [facility] Comment on above: Performed By: #### L [id number] ####[facility] (BEAKER)[address] [place] [address] ERYTHROCYTE MEAN CORPUSCULAR HEMOGLOBIN CONCENTRATION (G/DL) BY AUTOMATED 31.0 g/dL Low 32.0-35.0 [facility] Comment on above: Performed By: #### L [id number] ####[facility] (BEAKER)[address] [place] [address] Hematocrit (Bld) [Volume fraction] 50.9 % Normal 39.0-55.0 [facility] Comment on above: Performed By: #### L [id number] ####[facility] (BEAKER)[address] [place] [address] Hemoglobin (Bld) [Mass/Vol] 15.8 g/dL Normal 13.0-17.0 [facility] Comment on above: Performed By: #### L [id number] ####[facility] (BEAKER)[address] [place] [address] Immature granulocytes (Bld) [#/Vol] 0.06 10*3/uL Normal 0.00-0.20 [facility] Comment on above: Performed By: #### L [id number] ####[facility] (BEAKER)[address] [place] [address] Immature granulocytes/100 WBC (Bld) 0.7 % Normal 0.0-1.0 [facility] Comment on above: Performed By: #### L [id number] ####[facility] (BEAKER)[address] [place] [address] Lymphocytes (Bld) [#/Vol] 1.65 10*3/uL Normal 1.20-4.00 [facility] Comment on above: Performed By: #### L [id number] ####[facility] (BEAKER)[address] [place] [address] Lymphocytes/100 WBC (Bld) 17.9 % Low 20.0-45.0 [facility] Comment on above: Performed By: #### L [id number] ####[facility] (BEAKER)[address] [place] [address] MCH (RBC) [Entitic mass] 29.2 pg Normal 27.0-33.0 [facility] Comment on above: Performed By: #### L [id number] ####[facility] (BEAKER)[address] [place] [address] MCV (RBC) [Entitic vol] 93.9 fL Normal 82.0-98.0 [facility] Comment on above: Performed By: #### L [id number] ####[facility] (BEAKER)[address] [place] [address] Monocytes (Bld) [#/Vol] 1.05 10*3/uL High 0.10-1.00 [facility] Comment on above: Performed By: #### L [id number] ####[facility] ([facility])[address] [place] [address] Monocytes/100 WBC (Bld) 11.4 % Normal 5.0-12.0 [facility] Comment on above: Performed By: #### L [id number] ####[facility] ([facility])[address] [place] [address] Neutrophils (Bld) [#/Vol] 5.82 10*3/uL Normal 1.60-7.60 [facility] Comment on above: Performed By: #### L [id number] ####[facility] ([facility])[address] [place] [address] Neutrophils/100 WBC (Bld) 63.1 % Normal 40.0-72.0 [facility] Comment on above: Performed By: #### L [id number] ####[facility] ([facility])[address] [place] [address] NRBC (PER 100 WBCS) BY AUTOMATED COUNT 0.0 % Normal 0 [facility] Comment on above: Performed By: #### L [id number] ####[facility] ([facility])[address] [place] [address] PLATELETS (10*3/UL) IN BLOOD AUTOMATED COUNT 298 10*3/uL Normal 150-400 [facility] Comment on above: Performed By: #### L [id number] ####[facility] [place] [address] RBC (Bld) [#/Vol] 5.42 10*6/uL Normal 4.20-5.70 [facility] Comment on above: Performed By: #### L [id number] ####[facility] (BEAKER)[address] [place] [address] WBC (Bld) [#/Vol] 9.21 10*3/uL Normal 4.00-10.60 [facility] Comment on above: Performed By: #### L [id number] ####[facility] ([facility])[address] [place] [address] CONSULTon 08-30-2024 CONSULT Normal [facility] MAGNESIUMon 08-30-2024 Magnesium [Mass/Vol] 1.7 mg/dL Low 1.9-2.7 [facility] Comment on above: Performed By: #### L [id number] ####[facility] ([facility])[address] [place] [address] NURSNOTEon 08-30-2024 NURSNOTE [facility] POCT GLUCOSE METER UNSOLICIT ED RESULTSon 08-30-2024 Glucose [Mass/Vol] 294 mg/dL High 70-105 [facility] Comment on above: Order Comment: Waive d Testing in the ED is performed under the ED CLIA certificate #[id number]. Result Comment: [email or web address] [id number] Value Noted Performed By: #### L [id number] ####[facility] ([facility])[address] [place] [address] Glucose [Mass/Vol] 162 mg/dL High 70-105 [facility] Comment on above: Order Comment: Waive d Testing in the ED is performed under the ED CLIA certificate #[id number]. Result Comment: [email or web address] rbo Performed By: #### L [id number] ####[facility] ([facility])[address] [place] [address] Glucose [Mass/Vol] 193 mg/dL High 70-105 [facility] Comment on above: Order Comment: Waive d Testing in the ED is performed under the ED CLIA certificate #[id number]. Result Comment: abee rbo Performed By: #### L [id number] ####[facility] ([facility])[address] [place] [address] Glucose [Mass/Vol] 235 mg/dL High 70-105 [facility] Comment on above: Order Comment: Waive d Testing in the ED is performed under the ED CLIA certificate #[id number]. Result Comment: [email or web address] Performed By: #### L [id number] ####[facility] (BEAKER)[address] [place] [address] Glucose [Mass/Vol] 209 mg/dL High 70-105 [facility] Comment on above: Order Comment: Waive d Testing in the ED is performed under the ED CLIA certificate #[id number]. Result Comment: [email or web address] Performed By: #### L [id number] ####[facility] (BEAKER)[address] [place] [address] BASIC METABOLIC PANELon 02-0 Anion gap [Moles/Vol] 7 mmol/L Normal 7-20 [facility] Comment on above: Performed By: #### L [id number] ####[facility] (BEAKER)[address] [place] [address] Calcium [Mass/Vol] 10.5 mg/dL High 8.6-10.3 [facility] Comment on above: Performed By: #### L [id number] ####[facility] (BEAKER)[address] [place] [address] Chloride [Moles/Vol] 93 mmol/L Low 98-107 [facility] Comment on above: Performed By: #### L [id number] ####[facility] (BEAKER)[address] [place] [address] CO2 [Moles/Vol] 38 mmol/L High 21-31 [facility] Comment on above: Performed By: #### L [id number] ####[facility] (BEAKER)[address] [place] [address] Creatinine [Mass/Vol] 0.96 mg/dL Normal 0.70-1.30 [facility] Comment on above: Performed By: #### L [id number] ####[facility] (BEAKER)[address] [place] [address] GLOMERULAR FILTRATION RATE ML/MIN/1.73 SQ M.PREDICTED 87.7 mL/min/1.73m*2 Normal >60.[address] [facility] Comment on above: Result Comment: [facility]???s estimated glomerular filtration rate (eGFR) will [...] of individuals. Performed By: #### L [id number] ####[facility] ([facility])[address] [place] [address] Glucose [Mass/Vol] 182 mg/dL High 70-100 [facility] Comment on above: Performed By: #### L [id number] ####[facility] ([facility])[address] [place] [address] Potassium [Moles/Vol] 4.1 mmol/L Normal 3.5-5.1 [facility] Comment on above: Performed By: #### L [id number] ####[facility] ([facility])[address] [place] [address] Sodium [Moles/Vol] 134 mmol/L Low 136-145 [facility] Comment on above: Performed By: #### L [id number] ####[facility] ([facility])[address] [place] [address] Urea nitrogen [Mass/Vol] 23 mg/dL Normal 7-25 [facility] Comment on above: Performed By: #### L [id number] ####[facility] ([facility])[address] [place] [address] UREA NITROGEN/CREATININE (MASS RATIO) IN SER/PLAS 24.0 Normal [facility] Comment on above: Performed By: #### L [id number] ####[facility] ([facility])[address] [place] [address] CBC WITH AUTO DIFFERENTIALon 08-29-2024 Basophils (Bld) [#/Vol] 0.09 10*3/uL Normal 0.00-0.20 [facility] Comment on above: Performed By: #### L [id number] ####[facility] (BEAKER)[address] [place] [address] Basophils/100 WBC (Bld) 1.0 % Normal 0.0-1.0 [facility] Comment on above: Performed By: #### L [id number] ####[facility] (BEAKER)[address] [place] [address] Eosinophils (Bld) [#/Vol] 0.48 10*3/uL Normal 0.00-0.50 [facility] Comment on above: Performed By: #### L [id number] ####[facility] (BEAKER)[address] [place] [address] Eosinophils/100 WBC (Bld) 5.3 % Normal 0.0-6.0 [facility] Comment on above: Performed By: #### L [id number] ####[facility] (BEAKER)[address] [place] [address] Erythrocyte distribution width (RBC) [Ratio] 15.0 % Normal 11.5-15.0 [facility] Comment on above: Performed By: #### L [id number] ####[facility] (BEAKER)[address] [place] [address] ERYTHROCYTE MEAN CORPUSCULAR HEMOGLOBIN CONCENTRATION (G/DL) BY AUTOMATED 30.5 g/dL Low 32.0-35.0 [facility] Comment on above: Performed By: #### L [id number] ####[facility] (BEAKER)[address] [place] [address] Hematocrit (Bld) [Volume fraction] 51.2 % Normal 39.0-55.0 [facility] Comment on above: Performed By: #### L [id number] ####[facility] ([facility]AK[facility])[address] [place] [address] Hemoglobin (Bld) [Mass/Vol] 15.6 g/dL Normal 13.0-17.0 [facility] Comment on above: Performed By: #### L [id number] ####[facility] (BEAKER)[address] [place] [address] Immature granulocytes (Bld) [#/Vol] 0.07 10*3/uL Normal 0.00-0.20 [facility] Comment on above: Performed By: #### L [id number] ####[facility] (BEAKER)[address] [place] [address] Immature granulocytes/100 WBC (Bld) 0.8 % Normal 0.0-1.0 [facility] Comment on above: Performed By: #### L [id number] ####[facility] ([facility]AKER)[address] [place] [address] Lymphocytes (Bld) [#/Vol] 1.41 10*3/uL Normal 1.20-4.00 [facility] Comment on above: Performed By: #### L [id number] ####[facility] ([facility]AKER)[address] [place] [address] Lymphocytes/100 WBC (Bld) 15.7 % Low 20.0-45.0 [facility] Comment on above: Performed By: #### L [id number] ####[facility] ([facility]AKER)[address] [place] [address] MCH (RBC) [Entitic mass] 29.0 pg Normal 27.0-33.0 [facility] Comment on above: Performed By: #### L [id number] ####[facility] ([facility]AKER)[address] [place] [address] MCV (RBC) [Entitic vol] 95.2 fL Normal 82.0-98.0 [facility] Comment on above: Performed By: #### L [id number] ####[facility] ([facility]ER)[address] [facility] [place] [address] Monocytes (Bld) [#/Vol] 0.82 10*3/uL Normal 0.10-1.00 [facility] Comment on above: Performed By: #### L [id number] ####[facility] ([facility])[address] [place] [address] Monocytes/100 WBC (Bld) 9.1 % Normal 5.0-12.0 [facility] Comment on above: Performed By: #### L [id number] ####[facility] ([facility])[address] [place] [address] Neutrophils (Bld) [#/Vol] 6.11 10*3/uL Normal 1.60-7.60 [facility] Comment on above: Performed By: #### L [id number] ####[facility] ([facility])[address] [place] [address] Neutrophils/100 WBC (Bld) 68.1 % Normal 40.0-72.0 [facility] Comment on above: Performed By: #### L [id number] ####[facility] ([facility])[address] [place] [address] NRBC (PER 100 WBCS) BY AUTOMATED COUNT 0.0 % Normal 0 [facility] Comment on above: Performed By: #### L [id number] ####[facility] ([facility])[address] [place] [address] PLATELETS (10*3/UL) IN BLOOD AUTOMATED COUNT 262 10*3/uL Normal 150-400 [facility] Comment on above: Performed By: #### L [id number] ####[facility] ([facility])[address] [place] [address] RBC (Bld) [#/Vol] 5.38 10*6/uL Normal 4.20-5.70 [facility] Comment on above: Performed By: #### L [id number] ####[facility] ([facility])[address] [place] [address] WBC (Bld) [#/Vol] 8.98 10*3/uL Normal 4.00-10.60 [facility] Comment on above: Performed By: #### L [id number] ####[facility] ([facility])[address] [place] [address] MAGNESIUMon 08-29-2024 Magnesium [Mass/Vol] 1.7 mg/dL Low 1.9-2.7 [facility] Comment on above: Performed By: #### L [id number] ####[facility] ([facility])[address] [place] [address] POCT GLUCOSE METER UNSOLICIT ED RESULTSon 08-29-2024 Glucose [Mass/Vol] 284 mg/dL High 70-105 [facility] Comment on above: Order Comment: Waive d Testing in the ED is performed under the ED CLIA certificate #[id number]. Result Comment: sbel air Performed By: #### L [id number] ####[facility] ([facility])[address] [place] [address] Glucose [Mass/Vol] 259 mg/dL High 70-105 [facility] Comment on above: Order Comment: Waive d Testing in the ED is performed under the ED CLIA certificate #[id number]. Result Comment: aall en70 Performed By: #### L [id number] ####[facility] ([facility])[address] [place] [address] Glucose [Mass/Vol] 301 mg/dL High 70-105 [facility] Comment on above: Order Comment: Waive d Testing in the ED is performed under the ED CLIA certificate #[id number]. Result Comment: aall en70 Performed By: #### L [id number] ####[facility] ([facility])[address] [place] [address] Glucose [Mass/Vol] 166 mg/dL High 70-105 [facility] Comment on above: Order Comment: Waive d Testing in the ED is performed under the ED CLIA certificate #[id number]. Result Comment: aall en70 Performed By: #### L [id number] ####[facility] ([facility])[address] [place] [address] BASIC METABOLIC PANELon 02-0 8-2025 Anion gap [Moles/Vol] 8 mmol/L Normal 7-20 [facility] Comment on above: Performed By: #### L [id number] ####[facility] [place] [address] Calcium [Mass/Vol] 9.8 mg/dL Normal 8.6-10.3 [facility] Comment on above: Performed By: #### L [id number] ####[facility] [place] [address] Chloride [Moles/Vol] 96 mmol/L Low 98-107 [facility] Comment on above: Performed By: #### L [id number] ####[facility] [place] [address] CO2 [Moles/Vol] 37 mmol/L High 21-31 [facility] Comment on above: Performed By: #### L [id number] ####[facility] [place] [address] Creatinine [Mass/Vol] 0.82 mg/dL Normal 0.70-1.30 [facility] Comment on above: Performed By: #### L [id number] ####[facility] [place] [address] GLOMERULAR FILTRATION RATE ML/MIN/1.73 SQ M.PREDICTED 97.5 mL/min/1.73m*2 Normal >60.[address] [facility] Comment on above: Result Comment: [facility]???s estimated glomerular filtration rate (eGFR) will [...] of individuals. Performed By: #### L [id number] ####[facility] [place] [address] Glucose [Mass/Vol] 183 mg/dL High 70-100 [facility] Comment on above: Performed By: #### L [id number] ####[facility] [place] [address] Potassium [Moles/Vol] 3.7 mmol/L Normal 3.5-5.1 [facility] Comment on above: Performed By: #### L [id number] ####[facility] [place] [address] Sodium [Moles/Vol] 137 mmol/L Normal 136-145 [facility] Comment on above: Performed By: #### L [id number] ####[facility] ([facility])[address] [place] [address] Urea nitrogen [Mass/Vol] 17 mg/dL Normal 7-25 [facility] Comment on above: Performed By: #### L [id number] ####[facility] ([facility])[address] [place] [address] UREA NITROGEN/CREATININE (MASS RATIO) IN SER/PLAS 20.7 Normal [facility] Comment on above: Performed By: #### L [id number] ####[facility] [place] [address] CBC WITH AUTO DIFFERENTIALon 08-28-2024 Basophils (Bld) [#/Vol] 0.09 10*3/uL Normal 0.00-0.20 [facility] Comment on above: Performed By: #### L [id number] ####[facility] [place] [address] Basophils/100 WBC (Bld) 0.9 % Normal 0.0-1.0 [facility] Comment on above: Performed By: #### L [id number] ####[facility] [place] [address] Eosinophils (Bld) [#/Vol] 0.40 10*3/uL Normal 0.00-0.50 [facility] Comment on above: Performed By: #### L [id number] ####[facility] ([facility])[address] [place] [address] Eosinophils/100 WBC (Bld) 4.2 % Normal 0.0-6.0 [facility] Comment on above: Performed By: #### L [id number] ####[facility] ([facility])[address] [place] [address] Erythrocyte distribution width (RBC) [Ratio] 14.8 % Normal 11.5-15.0 [facility] Comment on above: Performed By: #### L [id number] ####[facility] ([facility])[address] [place] [address] ERYTHROCYTE MEAN CORPUSCULAR HEMOGLOBIN CONCENTRATION (G/DL) BY AUTOMATED 30.3 g/dL Low 32.0-35.0 [facility] Comment on above: Performed By: #### L [id number] ####[facility] ([facility])[address] [place] [address] Hematocrit (Bld) [Volume fraction] 50.9 % Normal 39.0-55.0 [facility] Comment on above: Performed By: #### L [id number] ####[facility] ([facility])[address] [place] [address] Hemoglobin (Bld) [Mass/Vol] 15.4 g/dL Normal 13.0-17.0 [facility] Comment on above: Performed By: #### L [id number] ####[facility] ([facility])[address] [place] [address] Immature granulocytes (Bld) [#/Vol] 0.06 10*3/uL Normal 0.00-0.20 [facility] Comment on above: Performed By: #### L [id number] ####[facility] ([facility])[address] [place] [address] Immature granulocytes/100 WBC (Bld) 0.6 % Normal 0.0-1.0 [facility] Comment on above: Performed By: #### L [id number] ####[facility] ([facility])[address] [place] [address] Lymphocytes (Bld) [#/Vol] 1.68 10*3/uL Normal 1.20-4.00 [facility] Comment on above: Performed By: #### L [id number] ####[facility] ([facility])[address] [place] [address] Lymphocytes/100 WBC (Bld) 17.6 % Low 20.0-45.0 [facility] Comment on above: Performed By: #### L [id number] ####[facility] ([facility])[address] [place] [address] MCH (RBC) [Entitic mass] 29.2 pg Normal 27.0-33.0 [facility] Comment on above: Performed By: #### L [id number] ####[facility] ([facility])[address] [place] [address] MCV (RBC) [Entitic vol] 96.6 fL Normal 82.0-98.0 [facility] Comment on above: Performed By: #### L [id number] ####[facility] ([facility])[address] [place] [address] Monocytes (Bld) [#/Vol] 0.99 10*3/uL Normal 0.10-1.00 [facility] Comment on above: Performed By: #### L [id number] ####[facility] ([facility])[address] [place] [address] Monocytes/100 WBC (Bld) 10.4 % Normal 5.0-12.0 [facility] Comment on above: Performed By: #### L [id number] ####[facility] ([facility])[address] [place] [address] Neutrophils (Bld) [#/Vol] 6.33 10*3/uL Normal 1.60-7.60 [facility] Comment on above: Performed By: #### L [id number] ####[facility] ([facility])[address] [place] [address] Neutrophils/100 WBC (Bld) 66.3 % Normal 40.0-72.0 [facility] Comment on above: Performed By: #### L [id number] ####[facility] ([facility])[address] [place] [address] NRBC (PER 100 WBCS) BY AUTOMATED COUNT 0.0 % Normal 0 [facility] Comment on above: Performed By: #### L [id number] ####[facility] ([facility])[address] [place] [address] PLATELETS (10*3/UL) IN BLOOD AUTOMATED COUNT 252 10*3/uL Normal 150-400 [facility] Comment on above: Performed By: #### L [id number] ####[facility] ([facility])[address] [place] [address] RBC (Bld) [#/Vol] 5.27 10*6/uL Normal 4.20-5.70 [facility] Comment on above: Performed By: #### L [id number] ####[facility] ([facility])[address] [place] [address] WBC (Bld) [#/Vol] 9.55 10*3/uL Normal 4.00-10.60 [facility] Comment on above: Performed By: #### L [id number] ####[facility] ([facility])[address] [place] [address] MAGNESIUMon 08-28-2024 Magnesium [Mass/Vol] 1.8 mg/dL Low 1.9-2.7 [facility] Comment on above: Performed By: #### L [id number] ####[facility] ([facility])[address] [address] NURSNOTEon 08-28-2024 NURSNOTE Normal [facility] POCT GLUCOSE METER UNSOLICIT ED RESULTSon 08-28-2024 Glucose [Mass/Vol] 258 mg/dL High 70-105 [facility] Comment on above: Order Comment: Waive d Testing in the ED is performed under the ED CLIA certificate #[id number]. Result Comment: amcn [email or web address] Performed By: #### L [id number] ####[facility] ([facility])[address] [place] [address] Glucose [Mass/Vol] 177 mg/dL High 70-105 [facility] Comment on above: Order Comment: Waive d Testing in the ED is performed under the ED CLIA certificate #[id number]. Result Comment: aall en70 Performed By: #### L [id number] ####[facility] ([facility])[address] [place] [address] Glucose [Mass/Vol] 242 mg/dL High 70-105 [facility] Comment on above: Order Comment: Waive d Testing in the ED is performed under the ED CLIA certificate #[id number]. Result Comment: aall en70 Performed By: #### L [id number] ####[facility] [place] [address] Glucose [Mass/Vol] 200 mg/dL High 70-105 [facility] Comment on above: Order Comment: Waive d Testing in the ED is performed under the ED CLIA certificate #[id number]. Result Comment: aall en70 Performed By: #### L [id number] ####[facility] ([facility])[address] [place] [address] 30on 08-27-2024 30 Normal [facility] BASIC METABOLIC PANELon -0 Anion gap [Moles/Vol] 6 mmol/L Low 7-20 [facility] Comment on above: Performed By: #### L [id number] ####[facility] ([facility])[address] [place] [address] Calcium [Mass/Vol] 9.8 mg/dL Normal 8.6-10.3 [facility] Comment on above: Performed By: #### L [id number] ####[facility] [place] [address] Chloride [Moles/Vol] 97 mmol/L Low 98-107 [facility] Comment on above: Performed By: #### L [id number] ####[facility] ([facility])[address] [place] [address] CO2 [Moles/Vol] 41 mmol/L Critically high 21-31 [facility] Comment on above: Performed By: #### L [id number] ####[facility] ([facility])[address] [place] [address] Creatinine [Mass/Vol] 0.81 mg/dL Normal 0.70-1.30 [facility] Comment on above: Performed By: #### L [id number] ####[facility] ([facility])[address] [place] [address] GLOMERULAR FILTRATION RATE ML/MIN/1.73 SQ M.PREDICTED 97.8 mL/min/1.73m*2 Normal >60.[address] [facility] Comment on above: Result Comment: [facility]???s estimated glomerular filtration rate (eGFR) will [...] of individuals. Performed By: #### L [id number] ####[facility] [place] [address] Glucose [Mass/Vol] 187 mg/dL High 70-100 [facility] Comment on above: Performed By: #### L [id number] ####[facility] [place] [address] Potassium [Moles/Vol] 3.5 mmol/L Normal 3.5-5.1 [facility] Comment on above: Performed By: #### L [id number] ####[facility] ([facility])[address] [facility] [place] [address] Sodium [Moles/Vol] 140 mmol/L Normal 136-145 [facility] Comment on above: Performed By: #### L [id number] ####[facility] ([facility])[address] [place] [address] Urea nitrogen [Mass/Vol] 16 mg/dL Normal 7-25 [facility] Comment on above: Performed By: #### L [id number] ####[facility] ([facility])[address] [place] [address] UREA NITROGEN/CREATININE (MASS RATIO) IN SER/PLAS 19.8 Normal [facility] Comment on above: Performed By: #### L [id number] ####[facility] ([facility])[address] [place] [address] CBC WITH AUTO DIFFERENTIALon 08-27-2024 Basophils (Bld) [#/Vol] 0.06 10*3/uL Normal 0.00-0.20 [facility] Comment on above: Performed By: #### L [id number] ####[facility] ([facility])[address] [place] [address] Basophils/100 WBC (Bld) 0.7 % Normal 0.0-1.0 [facility] Comment on above: Performed By: #### L [id number] ####[facility] [place] [address] Eosinophils (Bld) [#/Vol] 0.38 10*3/uL Normal 0.00-0.50 [facility] Comment on above: Performed By: #### L [id number] ####[facility] [place] [address] Eosinophils/100 WBC (Bld) 4.7 % Normal 0.0-6.0 [facility] Comment on above: Performed By: #### L [id number] ####[facility] ([facility])[address] [place] [address] Erythrocyte distribution width (RBC) [Ratio] 14.6 % Normal 11.5-15.0 [facility] Comment on above: Performed By: #### L [id number] ####[facility] [place] [address] ERYTHROCYTE MEAN CORPUSCULAR HEMOGLOBIN CONCENTRATION (G/DL) BY AUTOMATED 29.7 g/dL Low 32.0-35.0 [facility] Comment on above: Performed By: #### L [id number] ####[facility] ([facility])[address] [place] [address] Hematocrit (Bld) [Volume fraction] 49.5 % Normal 39.0-55.0 [facility] Comment on above: Performed By: #### L [id number] ####[facility] ([facility])[address] [place] [address] Hemoglobin (Bld) [Mass/Vol] 14.7 g/dL Normal 13.0-17.0 [facility] Comment on above: Performed By: #### L [id number] ####[facility] ([facility])[address] [place] [address] Immature granulocytes (Bld) [#/Vol] 0.04 10*3/uL Normal 0.00-0.20 [facility] Comment on above: Performed By: #### L [id number] ####[facility] [place] [address] Immature granulocytes/100 WBC (Bld) 0.5 % Normal 0.0-1.0 [facility] Comment on above: Performed By: #### L [id number] ####[facility] ([facility])[address] [place] [address] Lymphocytes (Bld) [#/Vol] 1.42 10*3/uL Normal 1.20-4.00 [facility] Comment on above: Performed By: #### L [id number] ####[facility] [place] [address] Lymphocytes/100 WBC (Bld) 17.7 % Low 20.0-45.0 [facility] Comment on above: Performed By: #### L [id number] ####[facility] [place] [address] MCH (RBC) [Entitic mass] 28.9 pg Normal 27.0-33.0 [facility] Comment on above: Performed By: #### L [id number] ####[facility] [place] [address] MCV (RBC) [Entitic vol] 97.4 fL Normal 82.0-98.0 [facility] Comment on above: Performed By: #### L [id number] ####[facility] ([facility])[address] [place] [address] Monocytes (Bld) [#/Vol] 0.92 10*3/uL Normal 0.10-1.00 [facility] Comment on above: Performed By: #### L [id number] ####[facility] ([facility])[address] [place] [address] Monocytes/100 WBC (Bld) 11.5 % Normal 5.0-12.0 [facility] Comment on above: Performed By: #### L [id number] ####[facility] ([facility])[address] [place] [address] Neutrophils (Bld) [#/Vol] 5.19 10*3/uL Normal 1.60-7.60 [facility] Comment on above: Performed By: #### L [id number] ####[facility] [place] [address] Neutrophils/100 WBC (Bld) 64.9 % Normal 40.0-72.0 [facility] Comment on above: Performed By: #### L [id number] ####[facility] [place] [address] NRBC (PER 100 WBCS) BY AUTOMATED COUNT 0.0 % Normal 0 [facility] Comment on above: Performed By: #### L [id number] ####[facility] ([facility])[address] [place] [address] PLATELETS (10*3/UL) IN BLOOD AUTOMATED COUNT 209 10*3/uL Normal 150-400 [facility] Comment on above: Performed By: #### L [id number] ####[facility] ([facility])[address] [place] [address] RBC (Bld) [#/Vol] 5.08 10*6/uL Normal 4.20-5.70 [facility] Comment on above: Performed By: #### L [id number] ####[facility] ([facility])[address] [place] [address] WBC (Bld) [#/Vol] 8.01 10*3/uL Normal 4.00-10.60 [facility] Comment on above: Performed By: #### L [id number] ####[facility] ([facility])[address] [place] [address] MAGNESIUMon 08-27-2024 Magnesium [Mass/Vol] 1.6 mg/dL Low 1.9-2.7 [facility] Comment on above: Performed By: #### L [id number] ####[facility] ([facility])[address] [place] [address] POCT GLUCOSE METER UNSOLICIT ED RESULTSon 08-27-2024 Glucose [Mass/Vol] 144 mg/dL High 70-105 [facility] Comment on above: Order Comment: Waive d Testing in the ED is performed under the ED CLIA certificate #[id number]. Result Comment: droc kol Performed By: #### L [id number] ####[facility] ([facility])[address] [place] [address] Glucose [Mass/Vol] 204 mg/dL High 70-105 [facility] Comment on above: Order Comment: Waive d Testing in the ED is performed under the ED CLIA certificate #[id number]. Result Comment: ndub [email or web address] Performed By: #### L [id number] ####[facility] ([facility])[address] [place] [address] Glucose [Mass/Vol] 230 mg/dL High 70-105 [facility] Comment on above: Order Comment: Waive d Testing in the ED is performed under the ED CLIA certificate #[id number]. Result Comment: [email or web address] Performed By: #### L [id number] ####[facility] [place] [address] Glucose [Mass/Vol] 174 mg/dL High 70-105 [facility] Comment on above: Order Comment: Waive d Testing in the ED is performed under the ED CLIA certificate #[id number]. Result Comment: ndub [email or web address] Performed By: #### L [id number] ####[facility] ([facility])[address] [place] [address] BASIC METABOLIC PANELon 02-0 Anion gap [Moles/Vol] 9 mmol/L Normal 7-20 [facility] Comment on above: Performed By: #### L [id number] ####[facility] ([facility])[address] [place] [address] Calcium [Mass/Vol] 9.4 mg/dL Normal 8.6-10.3 [facility] Comment on above: Performed By: #### L [id number] ####[facility] [place] [address] Chloride [Moles/Vol] 100 mmol/L Normal 98-107 [facility] Comment on above: Performed By: #### L [id number] ####[facility] ([facility])[address] [place] [address] CO2 [Moles/Vol] 36 mmol/L High 21-31 [facility] Comment on above: Performed By: #### L [id number] ####[facility] ([facility])[address] [place] [address] Creatinine [Mass/Vol] 0.78 mg/dL Normal 0.70-1.30 [facility] Comment on above: Performed By: #### L [id number] ####[facility] ([facility])[address] [place] [address] GLOMERULAR FILTRATION RATE ML/MIN/1.73 SQ M.PREDICTED 99.0 mL/min/1.73m*2 Normal >60.[address] [facility] Comment on above: Result Comment: [facility]???s estimated glomerular filtration rate (eGFR) will [...] of individuals. Performed By: #### L [id number] ####[facility] ([facility])[address] [place] [address] Glucose [Mass/Vol] 156 mg/dL High 70-100 [facility] Comment on above: Performed By: #### L [id number] ####[facility] ([facility])[address] [place] [address] Potassium [Moles/Vol] 3.5 mmol/L Normal 3.5-5.1 [facility] Comment on above: Performed By: #### L [id number] ####[facility] ([facility])[address] [place] [address] Sodium [Moles/Vol] 141 mmol/L Normal 136-145 [facility] Comment on above: Performed By: #### L [id number] ####[facility] ([facility])[address] [place] [address] Urea nitrogen [Mass/Vol] 17 mg/dL Normal 7-25 [facility] Comment on above: Performed By: #### L [id number] ####[facility] [place] [address] UREA NITROGEN/CREATININE (MASS RATIO) IN SER/PLAS 21.8 Normal [facility] Comment on above: Performed By: #### L [id number] ####[facility] [place] [address] CBC WITH AUTO DIFFERENTIALon 08-26-2024 Basophils (Bld) [#/Vol] 0.06 10*3/uL Normal 0.00-0.20 [facility] Comment on above: Performed By: #### L [id number] ####[facility] ([facility])[address] [place] [address] Basophils/100 WBC (Bld) 0.8 % Normal 0.0-1.0 [facility] Comment on above: Performed By: #### L [id number] ####[facility] ([facility])[address] [place] [address] Eosinophils (Bld) [#/Vol] 0.39 10*3/uL Normal 0.00-0.50 [facility] Comment on above: Performed By: #### L [id number] ####[facility] ([facility])[address] [place] [address] Eosinophils/100 WBC (Bld) 5.4 % Normal 0.0-6.0 [facility] Comment on above: Performed By: #### L [id number] ####[facility] ([facility])[address] [place] [address] Erythrocyte distribution width (RBC) [Ratio] 14.7 % Normal 11.5-15.0 [facility] Comment on above: Performed By: #### L [id number] ####[facility] [place] [address] ERYTHROCYTE MEAN CORPUSCULAR HEMOGLOBIN CONCENTRATION (G/DL) BY AUTOMATED 30.4 g/dL Low 32.0-35.0 [facility] Comment on above: Performed By: #### L [id number] ####[facility] ([facility])[address] [place] [address] Hematocrit (Bld) [Volume fraction] 49.0 % Normal 39.0-55.0 [facility] Comment on above: Performed By: #### L [id number] ####[facility] ([facility])[address] [place] [address] Hemoglobin (Bld) [Mass/Vol] 14.9 g/dL Normal 13.0-17.0 [facility] Comment on above: Performed By: #### L [id number] ####[facility] ([facility])[address] [place] [address] Immature granulocytes (Bld) [#/Vol] 0.03 10*3/uL Normal 0.00-0.20 [facility] Comment on above: Performed By: #### L [id number] ####[facility] ([facility])[address] [place] [address] Immature granulocytes/100 WBC (Bld) 0.4 % Normal 0.0-1.0 [facility] Comment on above: Performed By: #### L [id number] ####[facility] ([facility])[address] [place] [address] Lymphocytes (Bld) [#/Vol] 1.21 10*3/uL Normal 1.20-4.00 [facility] Comment on above: Performed By: #### L [id number] ####[facility] ([facility])[address] [place] [address] Lymphocytes/100 WBC (Bld) 16.7 % Low 20.0-45.0 [facility] Comment on above: Performed By: #### L [id number] ####[facility] ([facility])[address] [place] [address] MCH (RBC) [Entitic mass] 29.2 pg Normal 27.0-33.0 [facility] Comment on above: Performed By: #### L [id number] ####[facility] ([facility])[address] [place] [address] MCV (RBC) [Entitic vol] 96.1 fL Normal 82.0-98.0 [facility] Comment on above: Performed By: #### L [id number] ####[facility] ([facility])[address] [place] [address] Monocytes (Bld) [#/Vol] 0.86 10*3/uL Normal 0.10-1.00 [facility] Comment on above: Performed By: #### L [id number] ####[facility] ([facility])[address] [place] [address] Monocytes/100 WBC (Bld) 11.9 % Normal 5.0-12.0 [facility] Comment on above: Performed By: #### L [id number] ####[facility] ([facility])[address] [place] [address] Neutrophils (Bld) [#/Vol] 4.70 10*3/uL Normal 1.60-7.60 [facility] Comment on above: Performed By: #### L [id number] ####[facility] [place] [address] Neutrophils/100 WBC (Bld) 64.8 % Normal 40.0-72.0 [facility] Comment on above: Performed By: #### L [id number] ####[facility] ([facility])[address] [place] [address] NRBC (PER 100 WBCS) BY AUTOMATED COUNT 0.0 % Normal 0 [facility] Comment on above: Performed By: #### L [id number] ####[facility] ([facility])[address] [place] [address] PLATELETS (10*3/UL) IN BLOOD AUTOMATED COUNT 208 10*3/uL Normal 150-400 [facility] Comment on above: Performed By: #### L [id number] ####[facility] ([facility])[address] [place] [address] RBC (Bld) [#/Vol] 5.10 10*6/uL Normal 4.20-5.70 [facility] Comment on above: Performed By: #### L [id number] ####[facility] ([facility])[address] [place] [address] WBC (Bld) [#/Vol] 7.25 10*3/uL Normal 4.00-10.60 [facility] Comment on above: Performed By: #### L [id number] ####[facility] ([facility])[address] [place] [address] MAGNESIUMon 08-26-2024 Magnesium [Mass/Vol] 1.8 mg/dL Low 1.9-2.7 [facility] Comment on above: Performed By: #### L [id number] ####[facility] ([facility])[address] [place] [address] POCT GLUCOSE METER UNSOLICIT ED RESULTSon 08-26-2024 Glucose [Mass/Vol] 246 mg/dL High 70-105 [facility] Comment on above: Order Comment: Waive d Testing in the ED is performed under the ED CLIA certificate #[id number]. Result Comment: [email or web address] Performed By: #### L [id number] ####[facility] ([facility])[address] [place] [address] Glucose [Mass/Vol] 204 mg/dL High 70-105 [facility] Comment on above: Order Comment: Waive d Testing in the ED is performed under the ED CLIA certificate #[id number]. Result Comment: [id number] Performed By: #### L [id number] ####[facility] ([facility])[address] [place] [address] Glucose [Mass/Vol] 219 mg/dL High 70-105 [facility] Comment on above: Order Comment: Waive d Testing in the ED is performed under the ED CLIA certificate #[id number]. Result Comment: [id number] Performed By: #### L [id number] ####[facility] ([facility])[address] [place] [address] Glucose [Mass/Vol] 163 mg/dL High 70-105 [facility] Comment on above: Order Comment: Waive d Testing in the ED is performed under the ED CLIA certificate #[id number]. Result Comment: [email or web address] Performed By: #### L [id number] ####[facility] [place] [address] 30on 08-25-2024 30 Normal [facility] BASIC METABOLIC PANELon Anion gap [Moles/Vol] 10 mmol/L Normal 7-20 [facility] Comment on above: Performed By: #### L [id number] ####[facility] ([facility])[address] [place] [address] Calcium [Mass/Vol] 9.5 mg/dL Normal 8.6-10.3 [facility] Comment on above: Performed By: #### L [id number] ####[facility] ([facility])[address] [place] [address] Chloride [Moles/Vol] 97 mmol/L Low 98-107 [facility] Comment on above: Performed By: #### L [id number] ####[facility] ([facility])[address] [place] [address] CO2 [Moles/Vol] 34 mmol/L High 21-31 [facility] Comment on above: Performed By: #### L [id number] ####[facility] [place] [address] Creatinine [Mass/Vol] 0.87 mg/dL Normal 0.70-1.30 [facility] Comment on above: Performed By: #### L [id number] ####[facility] ([facility])[address] [place] [address] GLOMERULAR FILTRATION RATE ML/MIN/1.73 SQ M.PREDICTED 95.8 mL/min/1.73m*2 Normal >60.[address] [facility] Comment on above: Result Comment: [facility]???s estimated glomerular filtration rate (eGFR) will [...] of individuals. Performed By: #### L [id number] ####[facility] ([facility])[address] [place] [address] Glucose [Mass/Vol] 178 mg/dL High 70-100 [facility] Comment on above: Performed By: #### L [id number] ####[facility] ([facility])[address] [place] [address] Potassium [Moles/Vol] 3.5 mmol/L Normal 3.5-5.1 [facility] Comment on above: Performed By: #### L [id number] ####[facility] ([facility])[address] [place] [address] Sodium [Moles/Vol] 137 mmol/L Normal 136-145 [facility] Comment on above: Performed By: #### L [id number] ####[facility] ([facility])[address] [place] [address] Urea nitrogen [Mass/Vol] 20 mg/dL Normal 7-25 [facility] Comment on above: Performed By: #### L [id number] ####[facility] ([facility])[address] [place] [address] UREA NITROGEN/CREATININE (MASS RATIO) IN SER/PLAS 23.0 Normal [facility] Comment on above: Performed By: #### L [id number] ####[facility] ([facility])[address] [place] [address] CBC WITH AUTO DIFFERENTIALon 08-25-2024 Basophils (Bld) [#/Vol] 0.04 10*3/uL Normal 0.00-0.20 [facility] Comment on above: Performed By: #### L [id number] ####[facility] ([facility])[address] [place] [address] Basophils/100 WBC (Bld) 0.6 % Normal 0.0-1.0 [facility] Comment on above: Performed By: #### L [id number] ####[facility] ([facility])[address] [place] [address] Eosinophils (Bld) [#/Vol] 0.22 10*3/uL Normal 0.00-0.50 [facility] Comment on above: Performed By: #### L [id number] ####[facility] ([facility])[address] [place] [address] Eosinophils/100 WBC (Bld) 3.1 % Normal 0.0-6.0 [facility] Comment on above: Performed By: #### L [id number] ####[facility] ([facility])[address] [place] [address] Erythrocyte distribution width (RBC) [Ratio] 14.6 % Normal 11.5-15.0 [facility] Comment on above: Performed By: #### L [id number] ####[facility] ([facility])[address] [place] [address] ERYTHROCYTE MEAN CORPUSCULAR HEMOGLOBIN CONCENTRATION (G/DL) BY AUTOMATED 30.6 g/dL Low 32.0-35.0 [facility] Comment on above: Performed By: #### L [id number] ####[facility] ([facility])[address] [place] [address] Hematocrit (Bld) [Volume fraction] 49.4 % Normal 39.0-55.0 [facility] Comment on above: Performed By: #### L [id number] ####[facility] ([facility])[address] [place] [address] Hemoglobin (Bld) [Mass/Vol] 15.1 g/dL Normal 13.0-17.0 [facility] Comment on above: Performed By: #### L [id number] ####[facility] ([facility])[address] [place] [address] Immature granulocytes (Bld) [#/Vol] 0.04 10*3/uL Normal 0.00-0.20 [facility] Comment on above: Performed By: #### L [id number] ####[facility] ([facility])[address] [place] [address] Immature granulocytes/100 WBC (Bld) 0.6 % Normal 0.0-1.0 [facility] Comment on above: Performed By: #### L [id number] ####[facility] ([facility])[address] [place] [address] Lymphocytes (Bld) [#/Vol] 1.08 10*3/uL Low 1.20-4.00 [facility] Comment on above: Performed By: #### L [id number] ####[facility] ([facility])[address] [place] [address] Lymphocytes/100 WBC (Bld) 15.1 % Low 20.0-45.0 [facility] Comment on above: Performed By: #### L [id number] ####[facility] ([facility])[address] [place] [address] MCH (RBC) [Entitic mass] 28.9 pg Normal 27.0-33.0 [facility] Comment on above: Performed By: #### L [id number] ####[facility] ([facility])[address] [place] [address] MCV (RBC) [Entitic vol] 94.6 fL Normal 82.0-98.0 [facility] Comment on above: Performed By: #### L [id number] ####[facility] ([facility])[address] [place] [address] Monocytes (Bld) [#/Vol] 0.94 10*3/uL Normal 0.10-1.00 [facility] Comment on above: Performed By: #### L [id number] ####[facility] ([facility])[address] [place] [address] Monocytes/100 WBC (Bld) 13.1 % High 5.0-12.0 [facility] Comment on above: Performed By: #### L [id number] ####[facility] [place] [address] Neutrophils (Bld) [#/Vol] 4.85 10*3/uL Normal 1.60-7.60 [facility] Comment on above: Performed By: #### L [id number] ####[facility] ([facility])[address] [place] [place] [address] Neutrophils/100 WBC (Bld) 67.5 % Normal 40.0-72.0 [facility] Comment on above: Performed By: #### L [id number] ####[facility] ([facility])[address] [place] [address] NRBC (PER 100 WBCS) BY AUTOMATED COUNT 0.0 % Normal 0 [facility] Comment on above: Performed By: #### L [id number] ####[facility] ([facility])[address] [place] [address] PLATELETS (10*3/UL) IN BLOOD AUTOMATED COUNT 200 10*3/uL Normal 150-400 [facility] Comment on above: Performed By: #### L [id number] ####[facility] ([facility])[address] [place] [address] RBC (Bld) [#/Vol] 5.22 10*6/uL Normal 4.20-5.70 [facility] Comment on above: Performed By: #### L [id number] ####[facility] ([facility])[address] [place], [place] [address] WBC (Bld) [#/Vol] 7.17 10*3/uL Normal 4.00-10.60 [facility] Comment on above: Performed By: #### L [id number] ####[facility] ([facility])[address] [place] [address] MAGNESIUMon 02-05-2025 Magnesium [Mass/Vol] 1.6 mg/dL Low 1.9-2.7 [facility] Comment on above: Performed By: #### L [id number] ####[facility] ([facility])[address] [place] [address] POCT GLUCOSE METER UNSOLICIT ED RESULTSon 08-25-2024 Glucose [Mass/Vol] 154 mg/dL High 70-105 [facility] Comment on above: Order Comment: Waive d Testing in the ED is performed under the ED CLIA certificate #[id number]. Result Comment: [email or web address] Performed By: #### L [id number] ####[facility] ([facility])[address] [facility] [address] Glucose [Mass/Vol] 196 mg/dL High 70-105 [facility] Comment on above: Order Comment: Waive d Testing in the ED is performed under the ED CLIA certificate #[id number]. Result Comment: [email or web address] [email or web address] Performed By: #### L [id number] ####[facility] ([facility])[address] [place] [address] Glucose [Mass/Vol] 313 mg/dL High 70-105 [facility] Comment on above: Order Comment: Waive d Testing in the ED is performed under the ED CLIA certificate #[id number]. Result Comment: [email or web address] [email or web address] Performed By: #### L [id number] ####[facility] ([facility])[address] [place] [address] Glucose [Mass/Vol] 164 mg/dL High 70-105 [facility] Comment on above: Order Comment: Waive d Testing in the ED is performed under the ED CLIA certificate #[id number]. Result Comment: [email or web address] [email or web address] Performed By: #### L [id number] ####[facility] ([facility])[address] [place] [address] 30on 08-24-2024 30 Normal [facility] ANTI-XA (HEPARIN LEVEL)on HEPARIN UNFRACTIONATED (U/ML) IN PPP BY CHROMOGENIC METHOD 0.21 IU/mL Low 0.3-0.7 [facility] Comment on above: Result Comment: Tatyana roxaban and Apixaban will interfere with the anti Xa assay used to monitor UFH and LMWH. Performed By: #### L [id number] ####[facility] ([facility])[address] [place] [address] B-TYPE NATRIURETIC PEPTIDEon 08-24-2024 Natriuretic peptide B (Bld) [Mass/Vol] 143 pg/mL High 0-100 [facility] Comment on above: Performed By: #### L [id number] ####[facility] ([facility])[address] [place] [address] BASIC METABOLIC PANELon Anion gap [Moles/Vol] 11 mmol/L Normal 7-20 [facility] Comment on above: Performed By: #### L [id number] ####[facility] ([facility])[address] [place] [address] Calcium [Mass/Vol] 9.7 mg/dL Normal 8.6-10.3 [facility] Comment on above: Performed By: #### L [id number] ####[facility] ([facility])[address] [place] [address] Chloride [Moles/Vol] 98 mmol/L Normal 98-107 [facility] Comment on above: Performed By: #### L [id number] ####[facility] [place] [address] CO2 [Moles/Vol] 33 mmol/L High 21-31 [facility] Comment on above: Performed By: #### L [id number] ####[facility] [place] [address] Creatinine [Mass/Vol] 0.93 mg/dL Normal 0.70-1.30 [facility] Comment on above: Performed By: #### L [id number] ####[facility] [place] [address] GLOMERULAR FILTRATION RATE ML/MIN/1.73 SQ M.PREDICTED 91.1 mL/min/1.73m*2 Normal >60.[address] [facility] Comment on above: Result Comment: [facility]???s estimated glomerular filtration rate (eGFR) will [...] of individuals. Performed By: #### L [id number] ####[facility] ([facility])[address] [place] [address] Glucose [Mass/Vol] 166 mg/dL High 70-100 [facility] Comment on above: Performed By: #### L [id number] ####[facility] ([facility])[address] [place] [address] Potassium [Moles/Vol] 3.8 mmol/L Normal 3.5-5.1 [facility] Comment on above: Performed By: #### L [id number] ####[facility] ([facility])[address] [place] [address] Sodium [Moles/Vol] 138 mmol/L Normal 136-145 [facility] Comment on above: Performed By: #### L [id number] ####[facility] ([facility])[address] [place] [address] Urea nitrogen [Mass/Vol] 23 mg/dL Normal 7-25 [facility] Comment on above: Performed By: #### L [id number] ####[facility] ([facility])[address] [place] [address] UREA NITROGEN/CREATININE (MASS RATIO) IN SER/PLAS 24.7 Normal [facility] Comment on above: Performed By: #### L [id number] ####[facility] [place] [address] Anion gap [Moles/Vol] 10 mmol/L Normal 7-20 [facility] Comment on above: Performed By: #### L [id number] ####[facility] ([facility])[address] [place] [address] Calcium [Mass/Vol] 9.4 mg/dL Normal 8.6-10.3 [facility] Comment on above: Performed By: #### L [id number] ####[facility] ([facility])[address] [place] [address] Chloride [Moles/Vol] 98 mmol/L Normal 98-107 [facility] Comment on above: Performed By: #### L [id number] ####[facility] ([facility])[address] [place] [address] CO2 [Moles/Vol] 33 mmol/L High 21-31 [facility] Comment on above: Performed By: #### L [id number] ####[facility] [place] [address] Creatinine [Mass/Vol] 0.88 mg/dL Normal 0.70-1.30 [facility] Comment on above: Performed By: #### L [id number] ####[facility] [place] [address] GLOMERULAR FILTRATION RATE ML/MIN/1.73 SQ M.PREDICTED 95.4 mL/min/1.73m*2 Normal >60.[address] [facility] Comment on above: Result Comment: [facility]???s estimated glomerular filtration rate (eGFR) will [...] of individuals. Performed By: #### L [id number] ####[facility] ([facility])[address] [place] [address] Glucose [Mass/Vol] 132 mg/dL High 70-100 [facility] Comment on above: Performed By: #### L [id number] ####[facility] ([facility])[address] [place] [address] Potassium [Moles/Vol] 2.9 mmol/L Invalid Interpretation Code 3.5-5.1 [facility] Comment on above: Performed By: #### L [id number] ####[facility] ([facility])[address] [place] [address] Sodium [Moles/Vol] 138 mmol/L Normal 136-145 [facility] Comment on above: Performed By: #### L [id number] ####[facility] ([facility])[address] [place] [address] Urea nitrogen [Mass/Vol] 24 mg/dL Normal 7-25 [facility] Comment on above: Performed By: #### L [id number] ####[facility] ([facility])[address] [place] [address] UREA NITROGEN/CREATININE (MASS RATIO) IN SER/PLAS 27.3 Normal [facility] Comment on above: Performed By: #### L [id number] ####[facility] ([facility])[address] [place] [address] CBC WITH AUTO DIFFERENTIALon 08-24-2024 Basophils (Bld) [#/Vol] 0.06 10*3/uL Normal 0.00-0.20 [facility] Comment on above: Performed By: #### L [id number] ####[facility] ([facility])[address] [place] [address] Basophils/100 WBC (Bld) 0.8 % Normal 0.0-1.0 [facility] Comment on above: Performed By: #### L [id number] ####[facility] ([facility])[address] [place] [address] Eosinophils (Bld) [#/Vol] 0.46 10*3/uL Normal 0.00-0.50 [facility] Comment on above: Performed By: #### L [id number] ####[facility] ([facility])[address] [place] [address] Eosinophils/100 WBC (Bld) 5.9 % Normal 0.0-6.0 [facility] Comment on above: Performed By: #### L [id number] ####[facility] ([facility])[address] [place] [address] Erythrocyte distribution width (RBC) [Ratio] 14.7 % Normal 11.5-15.0 [facility] Comment on above: Performed By: #### L [id number] ####[facility] ([facility])[address] [place] [address] ERYTHROCYTE MEAN CORPUSCULAR HEMOGLOBIN CONCENTRATION (G/DL) BY AUTOMATED 31.3 g/dL Low 32.0-35.0 [facility] Comment on above: Performed By: #### L [id number] ####[facility] ([facility])[address] [place] [address] Hematocrit (Bld) [Volume fraction] 50.8 % Normal 39.0-55.0 [facility] Comment on above: Performed By: #### L [id number] ####[facility] ([facility])[address] [place] [address] Hemoglobin (Bld) [Mass/Vol] 15.9 g/dL Normal 13.0-17.0 [facility] Comment on above: Performed By: #### L [id number] ####[facility] ([facility])[address] [place] [address] Immature granulocytes (Bld) [#/Vol] 0.04 10*3/uL Normal 0.00-0.20 [facility] Comment on above: Performed By: #### L [id number] ####[facility] ([facility])[address] [place] [address] Immature granulocytes/100 WBC (Bld) 0.5 % Normal 0.0-1.0 [facility] Comment on above: Performed By: #### L [id number] ####[facility] ([facility])[address] [place] [address] Lymphocytes (Bld) [#/Vol] 1.23 10*3/uL Normal 1.20-4.00 [facility] Comment on above: Performed By: #### L [id number] ####[facility] ([facility])[address] [place] [address] Lymphocytes/100 WBC (Bld) 15.8 % Low 20.0-45.0 [facility] Comment on above: Performed By: #### L [id number] ####[facility] ([facility])[address] [place] [address] MCH (RBC) [Entitic mass] 29.1 pg Normal 27.0-33.0 [facility] Comment on above: Performed By: #### L [id number] ####[facility] ([facility])[address] [place] [address] MCV (RBC) [Entitic vol] 92.9 fL Normal 82.0-98.0 [facility] Comment on above: Performed By: #### L [id number] ####[facility] [place] [address] Monocytes (Bld) [#/Vol] 0.96 10*3/uL Normal 0.10-1.00 [facility] Comment on above: Performed By: #### L [id number] ####[facility] [place] [address] Monocytes/100 WBC (Bld) 12.4 % High 5.0-12.0 [facility] Comment on above: Performed By: #### L [id number] ####[facility] ([facility])[address] [place] [address] Neutrophils (Bld) [#/Vol] 5.02 10*3/uL Normal 1.60-7.60 [facility] Comment on above: Performed By: #### L [id number] ####[facility] [place] [address] Neutrophils/100 WBC (Bld) 64.6 % Normal 40.0-72.0 [facility] Comment on above: Performed By: #### L [id number] ####[facility] ([facility])[address] [place] [address] NRBC (PER 100 WBCS) BY AUTOMATED COUNT 0.0 % Normal 0 [facility] Comment on above: Performed By: #### L [id number] ####[facility] ([facility])[address] [place] [address] PLATELETS (10*3/UL) IN BLOOD AUTOMATED COUNT 194 10*3/uL Normal 150-400 [facility] Comment on above: Performed By: #### L [id number] ####[facility] ([facility])[address] [place] [address] RBC (Bld) [#/Vol] 5.47 10*6/uL Normal 4.20-5.70 [facility] Comment on above: Performed By: #### L [id number] ####[facility] ([facility])[address] [place] [address] WBC (Bld) [#/Vol] 7.77 10*3/uL Normal 4.00-10.60 [facility] Comment on above: Performed By: #### L [id number] ####[facility] ([facility])[address] [place] [address] CONSULTon 08-24-2024 CONSULT Normal [facility] CT HEAD WO IV CONTRASTon CT HEAD WO IV CONTRAST Invalid Interpretation Code [facility] CTA CHEST W IV CONTRASTon CTA CHEST W IV CONTRAST Normal [facility] MAGNESIUMon 08-24-2024 Magnesium [Mass/Vol] 1.7 mg/dL Low 1.9-2.7 [facility] Comment on above: Performed By: #### L [id number] ####[facility] ([facility])[address] [place] [address] Magnesium [Mass/Vol] 1.4 mg/dL Low 1.9-2.7 [facility] Comment on above: Performed By: #### L [id number] ####[facility] ([facility])[address] [place] [address] NURSNOTEon 08-24-2024 NURSNOTE Normal [facility] NURSNOTE Normal [facility] PHOSPHORUSon 08-24-2024 Magnesium [Mass/Vol] 3.4 mg/dL Normal 2.5-5.0 [facility] Comment on above: Performed By: #### L [id number] ####[facility] ([facility])[address] [place] [address] POCT GLUCOSE METER UNSOLICIT ED RESULTSon 08-24-2024 Glucose [Mass/Vol] 182 mg/dL High 70-105 [facility] Comment on above: Order Comment: Waive d Testing in the ED is performed under the ED CLIA certificate #[id number]. Result Comment: droc kol Performed By: #### L [id number] ####[facility] ([facility])[address] [place] [address] Glucose [Mass/Vol] 166 mg/dL High 70-105 [facility] Comment on above: Order Comment: Waive d Testing in the ED is performed under the ED CLIA certificate #[id number]. Result Comment: sbel cad Performed By: #### L [id number] ####[facility] ([facility])[address] [place] [address] Glucose [Mass/Vol] 150 mg/dL High 70-105 [facility] Comment on above: Order Comment: Waive d Testing in the ED is performed under the ED CLIA certificate #[id number]. Result Comment: besc obe Performed By: #### L [id number] ####[facility] ([facility])[address] [place] [address] Glucose [Mass/Vol] 136 mg/dL High 70-105 [facility] Comment on above: Order Comment: Waive d Testing in the ED is performed under the ED CLIA certificate #[id number]. Result Comment: swey [id number] Value Noted Performed By: #### L [id number] ####[facility] ([facility])[address] [place] [address] BASIC METABOLIC PANELon 02-0 Anion gap [Moles/Vol] 10 mmol/L Normal 7-20 [facility] Comment on above: Performed By: #### L [id number] ####[facility] ([facility])[address] [place] [address] Calcium [Mass/Vol] 9.8 mg/dL Normal 8.6-10.3 [facility] Comment on above: Performed By: #### L [id number] ####[facility] ([facility])[address] [place] [address] Chloride [Moles/Vol] 99 mmol/L Normal 98-107 [facility] Comment on above: Performed By: #### L [id number] ####[facility] ([facility])[address] [place] [address] CO2 [Moles/Vol] 33 mmol/L High 21-31 [facility] Comment on above: Performed By: #### L [id number] ####[facility] ([facility])[address] [place] [address] Creatinine [Mass/Vol] 0.94 mg/dL Normal 0.70-1.30 [facility] Comment on above: Performed By: #### L [id number] ####[facility] ([facility])[address] [place] [address] GLOMERULAR FILTRATION RATE ML/MIN/1.73 SQ M.PREDICTED 90.0 mL/min/1.73m*2 Normal >60.[address] [facility] Comment on above: Result Comment: [facility]???s estimated glomerular filtration rate (eGFR) will [...] of individuals. Performed By: #### L [id number] ####[facility] ([facility])[address] [facility] [place] [address] Glucose [Mass/Vol] 274 mg/dL High 70-100 [facility] Comment on above: Performed By: #### L [id number] ####[facility] ([facility])[address] [facility] [place] [address] Potassium [Moles/Vol] 3.8 mmol/L Normal 3.5-5.1 [facility] Comment on above: Performed By: #### L [id number] ####[facility] ([facility])[address] [facility] [place] [address] Sodium [Moles/Vol] 138 mmol/L Normal 136-145 [facility] Comment on above: Performed By: #### L [id number] ####[facility] ([facility])[address] [facility] [place] [address] Urea nitrogen [Mass/Vol] 31 mg/dL High 7-25 [facility] Comment on above: Performed By: #### L [id number] ####[facility] ([facility])[address] [facility] [place] [address] UREA NITROGEN/CREATININE (MASS RATIO) IN SER/PLAS 33.0 Normal [facility] Comment on above: Performed By: #### L [id number] ####[facility] ([facility])[address] [place] [address] CBC WITH AUTO DIFFERENTIALon 08-23-2024 Basophils (Bld) [#/Vol] 0.06 10*3/uL Normal 0.00-0.20 [facility] Comment on above: Performed By: #### L [id number] ####[facility] ([facility])[address] [place] [address] Basophils/100 WBC (Bld) 0.9 % Normal 0.0-1.0 [facility] Comment on above: Performed By: #### L [id number] ####[facility] ([facility])[address] [place] [address] Eosinophils (Bld) [#/Vol] 0.34 10*3/uL Normal 0.00-0.50 [facility] Comment on above: Performed By: #### L [id number] ####[facility] ([facility])[address] [place] [address] Eosinophils/100 WBC (Bld) 4.8 % Normal 0.0-6.0 [facility] Comment on above: Performed By: #### L [id number] ####[facility] ([facility])[address] [place] [address] Erythrocyte distribution width (RBC) [Ratio] 14.7 % Normal 11.5-15.0 [facility] Comment on above: Performed By: #### L [id number] ####[facility] ([facility])[address] [place] [address] ERYTHROCYTE MEAN CORPUSCULAR HEMOGLOBIN CONCENTRATION (G/DL) BY AUTOMATED 31.8 g/dL Low 32.0-35.0 [facility] Comment on above: Performed By: #### L [id number] ####[facility] ([facility])[address] [place] [address] Hematocrit (Bld) [Volume fraction] 52.5 % Normal 39.0-55.0 [facility] Comment on above: Performed By: #### L [id number] ####[facility] ([facility])[address] [place] [address] Hemoglobin (Bld) [Mass/Vol] 16.7 g/dL Normal 13.0-17.0 [facility] Comment on above: Performed By: #### L [id number] ####[facility] ([facility])[address] [facility] [place] [address] Immature granulocytes (Bld) [#/Vol] 0.05 10*3/uL Normal 0.00-0.20 [facility] Comment on above: Performed By: #### L [id number] ####[facility] ([facility])[address] [place] [address] Immature granulocytes/100 WBC (Bld) 0.7 % Normal 0.0-1.0 [facility] Comment on above: Performed By: #### L [id number] ####[facility] ([facility])[address] [place] [address] Lymphocytes (Bld) [#/Vol] 1.15 10*3/uL Low 1.20-4.00 [facility] Comment on above: Performed By: #### L [id number] ####[facility] ([facility])[address] [place] [address] Lymphocytes/100 WBC (Bld) 16.4 % Low 20.0-45.0 [facility] Comment on above: Performed By: #### L [id number] ####[facility] ([facility])[address] [place] [address] MCH (RBC) [Entitic mass] 29.0 pg Normal 27.0-33.0 [facility] Comment on above: Performed By: #### L [id number] ####[facility] ([facility])[address] [place] [address] MCV (RBC) [Entitic vol] 91.1 fL Normal 82.0-98.0 [facility] Comment on above: Performed By: #### L [id number] ####[facility] ([facility])[address] [facility] [place] [address] Monocytes (Bld) [#/Vol] 0.85 10*3/uL Normal 0.10-1.00 [facility] Comment on above: Performed By: #### L [id number] ####[facility] ([facility])[address] [facility] [place] [place] [address] Monocytes/100 WBC (Bld) 12.1 % High 5.0-12.0 [facility] Comment on above: Performed By: #### L [id number] ####[facility] ([facility])[address] [place] [address] Neutrophils (Bld) [#/Vol] 4.58 10*3/uL Normal 1.60-7.60 [facility] Comment on above: Performed By: #### L [id number] ####[facility] ([facility])[address] [place] [address] Neutrophils/100 WBC (Bld) 65.1 % Normal 40.0-72.0 [facility] Comment on above: Performed By: #### L [id number] ####[facility] ([facility])[address] [place] [address] NRBC (PER 100 WBCS) BY AUTOMATED COUNT 0.0 % Normal 0 [facility] Comment on above: Performed By: #### L [id number] ####[facility] ([facility])[address] [place] [address] PLATELETS (10*3/UL) IN BLOOD AUTOMATED COUNT 190 10*3/uL Normal 150-400 [facility] Comment on above: Performed By: #### L [id number] ####[facility] ([facility])[address] [place] [address] RBC (Bld) [#/Vol] 5.76 10*6/uL High 4.20-5.70 [facility] Comment on above: Performed By: #### L [id number] ####[facility] ([facility])[address] [place] [address] WBC (Bld) [#/Vol] 7.03 10*3/uL Normal 4.00-10.60 [facility] Comment on above: Performed By: #### L [id number] ####[facility] ([facility])[address] [place] [address] CONSULTon 08-23-2024 CONSULT Normal [facility] LIPID PANELon 08-23-2024 CHOL/HDL 7.8 mg/dL Normal [facility] Comment on above: Performed By: #### L [id number] ####[facility] ([facility])[address] [place] [address] Cholesterol [Mass/Vol] 195 mg/dL Normal 120-200 [facility] Comment on above: Performed By: #### L [id number] ####[facility] [place] [address] Magnesium [Mass/Vol] 177 mg/dL High 40-149 [facility] Comment on above: Result Comment: TRIG LYCERIDE REFERENCE RANGE:20 YEARS AND OLDER CARDIOVASCULAR RISKLESS THAN 150 mg/dL LOW [id number] TO 199 mg/dL BORDERLINE [id number] mg/dL AND GREATER HIGH RISK Performed By: #### L [id number] ####[facility] [place] [address] Magnesium [Mass/Vol] 135 mg/dL Normal 0-160 [facility] Comment on above: Performed By: #### L [id number] ####[facility] ([facility])[address] [place] [address] Magnesium [Mass/Vol] 25 mg/dL Normal 23-92 [facility] Comment on above: Performed By: #### L [id number] ####[facility] ([facility])[address] [place] [address] NON HDL CHOL. (LDL+VLDL) 170 Normal [facility] Comment on above: Performed By: #### L [id number] ####[facility] ([facility])[address] [place] [address] TOTAL VLDL-C 35 mg/dL Normal 0-[address] [facility] Comment on above: Performed By: #### L [id number] ####[facility] ([facility])[address] [place] [address] POCT GLUCOSE METER UNSOLICIT ED RESULTSon 08-23-2024 Glucose [Mass/Vol] 169 mg/dL High 70-105 [facility] Comment on above: Order Comment: Waive d Testing in the ED is performed under the ED CLIA certificate #[id number]. Result Comment: enoch tti Performed By: #### L [id number] ####[facility] ([facility])[address] [place] [address] Glucose [Mass/Vol] 183 mg/dL High 70-105 [facility] Comment on above: Order Comment: Waive d Testing in the ED is performed under the ED CLIA certificate #[id number]. Result Comment: ezab ors2 Performed By: #### L [id number] ####[facility] ([facility])[address] [place] [address] Glucose [Mass/Vol] 283 mg/dL High 70-105 [facility] Comment on above: Order Comment: Waive d Testing in the ED is performed under the ED CLIA certificate #[id number]. Result Comment: ezab ors2 Performed By: #### L [id number] ####[facility] ([facility])[address] [place] [address] Glucose [Mass/Vol] 258 mg/dL High 70-105 [facility] Comment on above: Order Comment: Waive d Testing in the ED is performed under the ED CLIA certificate #[id number]. Result Comment: tful [email or web address] Performed By: #### L [id number] ####[facility] ([facility])[address] [place] [address] 30on 08-22-2024 30 Normal [facility] ANTI-XA (HEPARIN LEVEL)on HEPARIN UNFRACTIONATED (U/ML) IN PPP BY CHROMOGENIC METHOD 0.31 IU/mL Normal 0.3-0.7 [facility] Comment on above: Result Comment: [place] roxaban and Apixaban will interfere with the anti Xa assay used to monitor UFH and LMWH. Performed By: #### L [id number] ####[facility] ([facility])[address] [place] [address] BASIC METABOLIC PANELon Anion gap [Moles/Vol] 10 mmol/L Normal 7-20 [facility] Comment on above: Performed By: #### L [id number] ####[facility] ([facility])[address] [place] [address] Calcium [Mass/Vol] 9.6 mg/dL Normal 8.6-10.3 [facility] Comment on above: Performed By: #### L [id number] ####[facility] ([facility])[address] [place] [address] Chloride [Moles/Vol] 102 mmol/L Normal 98-107 [facility] Comment on above: Performed By: #### L [id number] ####[facility] ([facility])[address] [place] [address] CO2 [Moles/Vol] 32 mmol/L High 21-31 [facility] Comment on above: Performed By: #### L [id number] ####[facility] ([facility])[address] [place] [address] Creatinine [Mass/Vol] 1.01 mg/dL Normal 0.70-1.30 [facility] Comment on above: Performed By: #### L [id number] ####[facility] ([facility])[address] [place] [address] GLOMERULAR FILTRATION RATE ML/MIN/1.73 SQ M.PREDICTED 82.5 mL/min/1.73m*2 Normal >60.[address] [facility] Comment on above: Result Comment: [facility]???s estimated glomerular filtration rate (eGFR) will [...] of individuals. Performed By: #### L [id number] ####[facility] [place] [address] Glucose [Mass/Vol] 263 mg/dL High 70-100 [facility] Comment on above: Performed By: #### L [id number] ####[facility] ([facility])[address] [place] [address] Potassium [Moles/Vol] 3.7 mmol/L Normal 3.5-5.1 [facility] Comment on above: Performed By: #### L [id number] ####[facility] ([facility])[address] [place] [address] Sodium [Moles/Vol] 140 mmol/L Normal 136-145 [facility] Comment on above: Performed By: #### L [id number] ####[facility] ([facility])[address] [place] [address] Urea nitrogen [Mass/Vol] 33 mg/dL High 7-25 [facility] Comment on above: Performed By: #### L [id number] ####[facility] ([facility])[address] [place] [address] UREA NITROGEN/CREATININE (MASS RATIO) IN SER/PLAS 32.7 Normal [facility] Comment on above: Performed By: #### L [id number] ####[facility] ([facility])[address] [place] [address] CBC WITH AUTO DIFFERENTIALon 08-22-2024 Basophils (Bld) [#/Vol] 0.05 10*3/uL Normal 0.00-0.20 [facility] Comment on above: Performed By: #### L [id number] ####[facility] ([facility])[address] [place] [address] Basophils/100 WBC (Bld) 0.5 % Normal 0.0-1.0 [facility] Comment on above: Performed By: #### L [id number] ####[facility] [place] [address] Eosinophils (Bld) [#/Vol] 0.36 10*3/uL Normal 0.00-0.50 [facility] Comment on above: Performed By: #### L [id number] ####[facility] ([facility])[address] [place] [address] Eosinophils/100 WBC (Bld) 3.9 % Normal 0.0-6.0 [facility] Comment on above: Performed By: #### L [id number] ####[facility] ([facility])[address] [place] [address] Erythrocyte distribution width (RBC) [Ratio] 14.7 % Normal 11.5-15.0 [facility] Comment on above: Performed By: #### L [id number] ####[facility] ([facility])[address] [place] [address] ERYTHROCYTE MEAN CORPUSCULAR HEMOGLOBIN CONCENTRATION (G/DL) BY AUTOMATED 30.8 g/dL Low 32.0-35.0 [facility] Comment on above: Performed By: #### L [id number] ####[facility] [place] [address] Hematocrit (Bld) [Volume fraction] 52.9 % Normal 39.0-55.0 [facility] Comment on above: Performed By: #### L [id number] ####[facility] [place] [address] Hemoglobin (Bld) [Mass/Vol] 16.3 g/dL Normal 13.0-17.0 [facility] Comment on above: Performed By: #### L [id number] ####[facility] [place] [address] Immature granulocytes (Bld) [#/Vol] 0.07 10*3/uL Normal 0.00-0.20 [facility] Comment on above: Performed By: #### L [id number] ####[facility] ([facility])[address] [place] [address] Immature granulocytes/100 WBC (Bld) 0.7 % Normal 0.0-1.0 [facility] Comment on above: Performed By: #### L [id number] ####[facility] [place] [address] Lymphocytes (Bld) [#/Vol] 1.16 10*3/uL Low 1.20-4.00 [facility] Comment on above: Performed By: #### L [id number] ####[facility] ([facility])[address] [place] [address] Lymphocytes/100 WBC (Bld) 12.4 % Low 20.0-45.0 [facility] Comment on above: Performed By: #### L [id number] ####[facility] ([facility])[address] [place] [address] MCH (RBC) [Entitic mass] 28.8 pg Normal 27.0-33.0 [facility] Comment on above: Performed By: #### L [id number] ####[facility] ([facility])[address] [place] [address] MCV (RBC) [Entitic vol] 93.5 fL Normal 82.0-98.0 [facility] Comment on above: Performed By: #### L [id number] ####[facility] ([facility])[address] [place] [address] Monocytes (Bld) [#/Vol] 1.21 10*3/uL High 0.10-1.00 [facility] Comment on above: Performed By: #### L [id number] ####[facility] ([facility])[address] [place] [address] Monocytes/100 WBC (Bld) 12.9 % High 5.0-12.0 [facility] Comment on above: Performed By: #### L [id number] ####[facility] [place] [address] Neutrophils (Bld) [#/Vol] 6.50 10*3/uL Normal 1.60-7.60 [facility] Comment on above: Performed By: #### L [id number] ####[facility] [place] [address] Neutrophils/100 WBC (Bld) 69.6 % Normal 40.0-72.0 [facility] Comment on above: Performed By: #### L [id number] ####[facility] [place] [address] NRBC (PER 100 WBCS) BY AUTOMATED COUNT 0.0 % Normal 0 [facility] Comment on above: Performed By: #### L [id number] ####[facility] ([facility])[address] [place] [address] PLATELETS (10*3/UL) IN BLOOD AUTOMATED COUNT 187 10*3/uL Normal 150-400 [facility] Comment on above: Performed By: #### L [id number] ####[facility] ([facility])[address] [place] [address] RBC (Bld) [#/Vol] 5.66 10*6/uL Normal 4.20-5.70 [facility] Comment on above: Performed By: #### L [id number] ####[facility] ([facility])[address] [place] [address] WBC (Bld) [#/Vol] 9.35 10*3/uL Normal 4.00-10.60 [facility] Comment on above: Performed By: #### L [id number] ####[facility] ([facility])[address] [place] [address] POCT GLUCOSE METER UNSOLICIT ED RESULTSon 08-22-2024 Glucose [Mass/Vol] 256 mg/dL High 70-105 [facility] Comment on above: Order Comment: Waive d Testing in the ED is performed under the ED CLIA certificate #[id number]. Result Comment: ezab ors2 Performed By: #### L [id number] ####[facility] [place] [address] Glucose [Mass/Vol] 277 mg/dL High 70-105 [facility] Comment on above: Order Comment: Waive d Testing in the ED is performed under the ED CLIA certificate #[id number]. Result Comment: ezab ors2 Performed By: #### L [id number] ####[facility] ([facility])[address] [place] [address] ANTI-XA (HEPARIN LEVEL)on HEPARIN UNFRACTIONATED (U/ML) IN PPP BY CHROMOGENIC METHOD 0.30 IU/mL Normal 0.3-0.7 [facility] Comment on above: Result Comment: [place] roxaban and Apixaban will interfere with the anti Xa assay used to monitor UFH and LMWH. Performed By: #### L [id number] ####[facility] ([facility])[address] [place] [address] ARTERIAL BLOOD GAS WITH CO-O XIMETRYon 08-21-2024 Base excess Calc (Bld) [Moles/Vol] 6.7 mmol/L High -2.0-3.0 [facility] Comment on above: Performed By: #### L [id number] ####[facility] RESPIRATORY [id number] [place] [address] [facility] CARBOXYHEMOGLOBIN/HEMO GLOBIN TOTAL % IN BLOOD 2.0 % Normal 0.0-3.0 [facility] Comment on above: Performed By: #### L [id number] ####[facility] RESPIRATORY [id number] [place] [address] [place] CO2 (Bld) [Partial pressure] 43 mm[Hg] Normal 35-48 [facility] Comment on above: Performed By: #### L [id number] ####[facility] RESPIRATORY [id number] [place] [address] [place] DEOXYGENATED HEMOGLOBIN IN BLOOD 4.9 % Normal 1-[address] [facility] Comment on above: Performed By: #### L [id number] ####[facility] RESPIRATORY [id number] [place] [address] [place] FIO2 50 % Normal [facility] Comment on above: Performed By: #### L [id number] ####[facility] RESPIRATORY [id number] [facility] [place] [address] [facility] HCO3 (Bld) [Moles/Vol] 31.3 mmol/L High 21.0-28.0 [facility] Comment on above: Performed By: #### L [id number] ####[facility] RESPIRATORY [id number] [facility] [place] [address] [facility] Hemoglobin (Bld) [Mass/Vol] 16.5 g/dL Normal 11.7-17.4 [facility] Comment on above: Performed By: #### L [id number] ####[facility] RESPIRATORY [id number] [place] [address] [facility] METHEMOGLOBIN/100 IN BLOOD 0.7 % Normal 0.0-1.5 [facility] Comment on above: Performed By: #### L [id number] ####[facility] RESPIRATORY [id number] [place] [address] [place] [facility] Oxygen (Bld) [Partial pressure] 68 mm[Hg] Low 83-100 [facility] Comment on above: Performed By: #### L [id number] ####[facility] RESPIRATORY [id number] [place] [address] [facility] OXYGEN SATURATION (%) IN ARTERIAL BLOOD 95.0 % Normal 94.0-98.0 [facility] Comment on above: Performed By: #### L [id number] ####[facility] RESPIRATORY [id number] [place] [address] [facility] OXYGENATED HEMOGLOBIN IN BLOOD 92.4 % Normal 90.0-95.0 [facility] Comment on above: Performed By: #### L [id number] ####[facility] RESPIRATORY [id number] [place] [address] [facility] pH (Bld) 7.47 [pH] High 7.35-7.45 [facility] Comment on above: Performed By: #### L [id number] ####[facility] RESPIRATORY [id number] [facility] [place] [address] [facility] SOURCE OF OXYGEN Bi-PAP Normal [facility] Comment on above: Performed By: #### L [id number] ####[facility] RESPIRATORY [id number] [place] [address] [place] Base excess Calc (Bld) [Moles/Vol] 5.1 mmol/L High -2.0-3.0 [facility] Comment on above: Performed By: #### L [id number] ####[facility] RESPIRATORY [id number] [place] [address] [place] CARBOXYHEMOGLOBIN/HEMO GLOBIN TOTAL % IN BLOOD 1.9 % Normal 0.0-3.0 [facility] Comment on above: Performed By: #### L [id number] ####[facility] RESPIRATORY [id number] [place] [address] [place] CO2 (Bld) [Partial pressure] 46 mm[Hg] Normal 35-48 [facility] Comment on above: Performed By: #### L [id number] ####[facility] RESPIRATORY [id number] [place] [address] [facility] DEOXYGENATED HEMOGLOBIN IN BLOOD 15.8 % Critically high 1-[address] [facility] Comment on above: Performed By: #### L [id number] ####[facility] RESPIRATORY [id number] [address] [place] [address] [place] HCO3 (Bld) [Moles/Vol] 30.5 mmol/L High 21.0-28.0 [facility] Comment on above: Performed By: #### L [id number] ####[facility] RESPIRATORY [id number] [address] [place] [address] [place] Hemoglobin (Bld) [Mass/Vol] 16.4 g/dL Normal 11.7-17.4 [facility] Comment on above: Performed By: #### L [id number] ####[facility] RESPIRATORY [id number] [place] [address] [place] LPM 15 Normal [facility] Comment on above: Performed By: #### L [id number] ####[facility] RESPIRATORY [id number] [place] [address] [place] METHEMOGLOBIN/100 IN BLOOD 0.6 % Normal 0.0-1.5 [facility] Comment on above: Performed By: #### L [id number] ####[facility] RESPIRATORY [id number] [place] [address] [place] Oxygen (Bld) [Partial pressure] 53 mm[Hg] Invalid Interpretation Code 83-100 [facility] Comment on above: Performed By: #### L [id number] ####[facility] RESPIRATORY [id number] [place] [address] [facility] OXYGEN SATURATION (%) IN ARTERIAL BLOOD 83.8 % Invalid Interpretation Code 94.0-98.0 [facility] Comment on above: Performed By: #### L [id number] ####[facility] RESPIRATORY [id number] [place] [address] [facility] OXYGENATED HEMOGLOBIN IN BLOOD 81.7 % Invalid Interpretation Code 90.0-95.0 [facility] Comment on above: Performed By: #### L [id number] ####[facility] RESPIRATORY [id number] [place] [address] [facility] pH (Bld) 7.43 [pH] Normal 7.35-7.45 [facility] Comment on above: Performed By: #### L [id number] ####[facility] RESPIRATORY [id number] [place] [address] [facility] SOURCE OF OXYGEN SALTER Normal [facility] Comment on above: Performed By: #### L [id number] ####[facility] RESPIRATORY [id number] [place] [address] [facility] ARTERIAL BLOOD GAS WITH IONI ZED CALCIUMon 08-21-2024 Base excess Calc (Bld) [Moles/Vol] 6.2 mmol/L High -2.0-3.0 [facility] Comment on above: Performed By: #### L [id number] ####[facility] RESPIRATORY [id number] [place] [address] [place] CALCIUM IONIZED (MMOL/L) IN BLOOD 1.30 mmol/L Normal 1.15-1.33 [facility] Comment on above: Performed By: #### L [id number] ####[facility] RESPIRATORY [id number] [place] [address] [facility] CO2 (Bld) [Partial pressure] 45 mm[Hg] Normal 35-48 [facility] Comment on above: Performed By: #### L [id number] ####[facility] RESPIRATORY [id number] [facility] [address] [place] FIO2 50 % Normal [facility] Comment on above: Performed By: #### L [id number] ####[facility] RESPIRATORY [id number] [place] [address] [facility] HCO3 (Bld) [Moles/Vol] 31.3 mmol/L High 21.0-28.0 [facility] Comment on above: Performed By: #### L [id number] ####[facility] RESPIRATORY [id number] [place] [address] [facility] Oxygen (Bld) [Partial pressure] 70 mm[Hg] Low 83-100 [facility] Comment on above: Performed By: #### L [id number] ####[facility] RESPIRATORY [id number] [place] [address] [facility] OXYGEN SATURATION (%) IN ARTERIAL BLOOD 94.9 % Normal 94.0-98.0 [facility] Comment on above: Performed By: #### L [id number] ####[facility] RESPIRATORY [id number] [place] [address] [place] PEEP 8 cmH2O Normal [facility] Comment on above: Performed By: #### L [id number] ####[facility] RESPIRATORY [id number] [place] [address] [facility] pH (Bld) 7.45 [pH] Normal 7.35-7.45 [facility] Comment on above: Performed By: #### L [id number] ####[facility] RESPIRATORY [id number] [place] [address] [place] PRESSURE SUPPORT 14 Normal [facility] Comment on above: Performed By: #### L [id number] ####[facility] RESPIRATORY [id number] [place] [address] [facility] SOURCE OF OXYGEN Bi-PAP Normal [facility] Comment on above: Performed By: #### L [id number] ####[facility] RESPIRATORY [id number] [place] [address] [facility] BASIC METABOLIC PANELon 02-0 Anion gap [Moles/Vol] 11 mmol/L Normal 7-20 [facility] Comment on above: Performed By: #### L [id number] ####[facility] HOSPITAL LAB (BEAKER)[address] [place] [address] Calcium [Mass/Vol] 9.4 mg/dL Normal 8.6-10.3 [facility] Comment on above: Performed By: #### L [id number] ####[facility] (BEAKER)[address] [place] [address] Chloride [Moles/Vol] 101 mmol/L Normal 98-107 [facility] Comment on above: Performed By: #### L [id number] ####[facility] (BEAKER)[address] [place] [address] CO2 [Moles/Vol] 30 mmol/L Normal 21-31 [facility] Comment on above: Performed By: #### L [id number] ####[facility] (BEAKER)[address] [place] [address] Creatinine [Mass/Vol] 1.05 mg/dL Normal 0.70-1.30 [facility] Comment on above: Performed By: #### L [id number] ####[facility] (BEAKER)[address] [place] [address] GLOMERULAR FILTRATION RATE ML/MIN/1.73 SQ M.PREDICTED 78.8 mL/min/1.73m*2 Normal >60.[address] [facility] Comment on above: Result Comment: [facility]???s estimated glomerular filtration rate (eGFR) will [...] of individuals. Performed By: #### L [id number] ####[facility] ([facility])[address] [place] [address] Glucose [Mass/Vol] 269 mg/dL High 70-100 [facility] Comment on above: Performed By: #### L [id number] ####[facility] ([facility])[address] [place] [address] Potassium [Moles/Vol] 4.0 mmol/L Normal 3.5-5.1 [facility] Comment on above: Performed By: #### L [id number] ####[facility] ([facility])[address] [place] [address] Sodium [Moles/Vol] 138 mmol/L Normal 136-145 [facility] Comment on above: Performed By: #### L [id number] ####[facility] ([facility])[address] [place] [address] Urea nitrogen [Mass/Vol] 35 mg/dL High 7-25 [facility] Comment on above: Performed By: #### L [id number] ####[facility] ([facility])[address] [place] [address] UREA NITROGEN/CREATININE (MASS RATIO) IN SER/PLAS 33.3 Normal [facility] Comment on above: Performed By: #### L [id number] ####[facility] ([facility])[address] [place] [address] CALCIUM, IONIZEDon CALCIUM IONIZED (MMOL/L) IN BLOOD 1.29 mmol/L Normal 1.15-1.33 [facility] Comment on above: Performed By: #### C ALCIUM, IONIZED ####[facility] RESPIRATORY [id number] [place] [address] [place] CBC WITH AUTO DIFFERENTIALon 08-21-2024 Basophils (Bld) [#/Vol] 0.05 10*3/uL Normal 0.00-0.20 [facility] Comment on above: Performed By: #### L [id number] ####[facility] (BEAKER)[address] [place] [address] Basophils/100 WBC (Bld) 0.6 % Normal 0.0-1.0 [facility] Comment on above: Performed By: #### L [id number] ####[facility] (BEAKER)[address] [place] [address] Eosinophils (Bld) [#/Vol] 0.43 10*3/uL Normal 0.00-0.50 [facility] Comment on above: Performed By: #### L [id number] ####[facility] (BEAKER)[address] [place] [address] Eosinophils/100 WBC (Bld) 5.2 % Normal 0.0-6.0 [facility] Comment on above: Performed By: #### L [id number] ####[facility] (BEAKER)[address] [place] [address] Erythrocyte distribution width (RBC) [Ratio] 14.8 % Normal 11.5-15.0 [facility] Comment on above: Performed By: #### L [id number] ####[facility] (BEAKER)[address] [place] [address] ERYTHROCYTE MEAN CORPUSCULAR HEMOGLOBIN CONCENTRATION (G/DL) BY AUTOMATED 31.1 g/dL Low 32.0-35.0 [facility] Comment on above: Performed By: #### L [id number] ####[facility] (BEAKER)[address] [place] [address] Hematocrit (Bld) [Volume fraction] 52.1 % Normal 39.0-55.0 [facility] Comment on above: Performed By: #### L [id number] ####[facility] (BEAKER)[address] [place] [address] Hemoglobin (Bld) [Mass/Vol] 16.2 g/dL Normal 13.0-17.0 [facility] Comment on above: Performed By: #### L [id number] ####[facility] (BEAKER)[address] [place] [address] Immature granulocytes (Bld) [#/Vol] 0.06 10*3/uL Normal 0.00-0.20 [facility] Comment on above: Performed By: #### L [id number] ####[facility] (BEAKER)[address] [place] [address] Immature granulocytes/100 WBC (Bld) 0.7 % Normal 0.0-1.0 [facility] Comment on above: Performed By: #### L [id number] ####[facility] (BEAKER)[address] [place] [address] Lymphocytes (Bld) [#/Vol] 1.10 10*3/uL Low 1.20-4.00 [facility] Comment on above: Performed By: #### L [id number] ####[facility] (BEAKER)[address] [place] [address] Lymphocytes/100 WBC (Bld) 13.3 % Low 20.0-45.0 [facility] Comment on above: Performed By: #### L [id number] ####[facility] (BEAKER)[address] [place] [address] MCH (RBC) [Entitic mass] 29.1 pg Normal 27.0-33.0 [facility] Comment on above: Performed By: #### L [id number] ####[facility] (BEAKER)[address] [place] [address] MCV (RBC) [Entitic vol] 93.7 fL Normal 82.0-98.0 [facility] Comment on above: Performed By: #### L [id number] ####[facility] (BEAKER)[address] [place] [address] Monocytes (Bld) [#/Vol] 0.92 10*3/uL Normal 0.10-1.00 [facility] Comment on above: Performed By: #### L [id number] ####[facility] (BEAKER)[address] [place] [address] Monocytes/100 WBC (Bld) 11.1 % Normal 5.0-12.0 [facility] Comment on above: Performed By: #### L [id number] ####[facility] [place] [address] Neutrophils (Bld) [#/Vol] 5.72 10*3/uL Normal 1.60-7.60 [facility] Comment on above: Performed By: #### L [id number] ####[facility] ([facility])[address] [place] [address] Neutrophils/100 WBC (Bld) 69.1 % Normal 40.0-72.0 [facility] Comment on above: Performed By: #### L [id number] ####[facility] ([facility])[address] [place] [address] NRBC (PER 100 WBCS) BY AUTOMATED COUNT 0.0 % Normal 0 [facility] Comment on above: Performed By: #### L [id number] ####[facility] ([facility])[address] [place] [address] PLATELETS (10*3/UL) IN BLOOD AUTOMATED COUNT 199 10*3/uL Normal 150-400 [facility] Comment on above: Performed By: #### L [id number] ####[facility] ([facility])[address] [place] [address] RBC (Bld) [#/Vol] 5.56 10*6/uL Normal 4.20-5.70 [facility] Comment on above: Performed By: #### L [id number] ####[facility] ([facility])[address] [place] [address] WBC (Bld) [#/Vol] 8.28 10*3/uL Normal 4.00-10.60 [facility] Comment on above: Performed By: #### L [id number] ####[facility] (BEAKER)[address] [place] [address] CT BRAIN PERFUSIONon 025 CT BRAIN PERFUSION Invalid Interpretation Code [facility] CT HEAD WO IV CONTRASTon CT HEAD WO IV CONTRAST Normal [facility] HEAD W IV CONTRASTon CTA HEAD W IV CONTRAST Normal [facility] CTA NECK W IV CONTRASTon CTA NECK W IV CONTRAST [facility] MAGNESIUMon 08-21-2024 Magnesium [Mass/Vol] 1.8 mg/dL Low 1.9-2.7 [facility] Comment on above: Performed By: #### L [id number] ####[facility] (BEAKER)[address] [place] [address] MRSA/MSSA DNA NASALon 2024 MRSA DNA Positive Abnormal Negative [facility] Comment on above: Order Comment: Testi [...] preclude nasal colonization. Performed By: #### L [id number] ####[facility] (BEAKER)[address] [place] [address] MSSA DNA Negative Normal Negative [facility] Comment on above: Order Comment: Testi [...] preclude nasal colonization. Performed By: #### L [id number] ####[facility] (BEAKER)[address] [place] [address] PHOSPHORUSon 08-21-2024 Magnesium [Mass/Vol] 2.5 mg/dL Normal 2.5-5.0 [facility] Comment on above: Performed By: #### L [id number] ####[facility] HOSP[facility] LAB (BEAKER)[address] [place] [address] POCT GLUCOSE METER UNSOLICIT ED RESULTSon 08-21-2024 Glucose [Mass/Vol] 230 mg/dL High 70-105 [facility] Comment on above: Order Comment: Waive d Testing in the ED is performed under the ED CLIA certificate #[id number]. Result Comment: [email or web address] Performed By: #### L [id number] ####[facility] ([facility])[address] [place] [address] Glucose [Mass/Vol] 226 mg/dL High 70-105 [facility] Comment on above: Order Comment: Waive d Testing in the ED is performed under the ED CLIA certificate #[id number]. Result Comment: [email or web address] Performed By: #### L [id number] ####[facility] ([facility])[address] [place] [address] Glucose [Mass/Vol] 229 mg/dL High 70-105 [facility] Comment on above: Order Comment: Waive d Testing in the ED is performed under the ED CLIA certificate #[id number]. Result Comment: [email or web address] Performed By: #### L [id number] ####[facility] ([facility])[address] [place] [address] Glucose [Mass/Vol] 234 mg/dL High 70-105 [facility] Comment on above: Order Comment: Waive d Testing in the ED is performed under the ED CLIA certificate #[id number]. Result Comment: [email or web address] Performed By: #### L [id number] ####[facility] ([facility])[address] [place] [address] POTASSIUM, WHOLE BLOODon Potassium [Moles/Vol] 3.3 mmol/L Low 3.5-5.1 [facility] Comment on above: Performed By: #### P OTASSIUM, WHOLE BLOOD ####[facility] RESPIRATORY [id number] [place] [address] [place] SODIUM, WHOLE BLOODon 2024 SODIUM, WHOLE BLOOD 137 Normal 136-145 [facility] Comment on above: Performed By: #### S ODIUM, WHOLE BLOOD ####[facility] RESPIRATORY [id number] [place] [address] [place] 30on 08-20-2024 30 Normal [facility] ANTI-XA (HEPARIN LEVEL)on HEPARIN UNFRACTIONATED (U/ML) IN PPP BY CHROMOGENIC METHOD 0.30 IU/mL Normal 0.3-0.7 [facility] Comment on above: Result Comment: [place] roxaban and Apixaban will interfere with the anti Xa assay used to monitor UFH and LMWH. Performed By: #### L [id number] ####[facility] (BEAKER)[address] [place] [address] BASIC METABOLIC PANELon 07-23 Anion gap [Moles/Vol] 8 mmol/L Normal 7-20 [facility] Comment on above: Performed By: #### L [id number] ####[facility] (BEAKER)[address] [place] [address] Calcium [Mass/Vol] 9.4 mg/dL Normal 8.6-10.3 [facility] Comment on above: Performed By: #### L [id number] ####[facility] (BEAKER)[address] [place] [address] Chloride [Moles/Vol] 99 mmol/L Normal 98-107 [facility] Comment on above: Performed By: #### L [id number] ####[facility] (BEAKER)[address] [place] [address] CO2 [Moles/Vol] 34 mmol/L High -31 [facility] Comment on above: Performed By: #### L [id number] ####[facility] (BEAKER)[address] [place] [address] Creatinine [Mass/Vol] 0.97 mg/dL Normal 0.70-1.30 [facility] Comment on above: Performed By: #### L [id number] ####[facility] ([facility])[address] [facility] [place] [address] GLOMERULAR FILTRATION RATE ML/MIN/1.73 SQ M.PREDICTED 86.6 mL/min/1.73m*2 Normal >60.[address] [facility] Comment on above: Result Comment: [facility]???s estimated glomerular filtration rate (eGFR) will [...] of individuals. Performed By: #### L [id number] ####[facility] ([facility])[address] [place] [address] Glucose [Mass/Vol] 267 mg/dL High 70-100 [facility] Comment on above: Performed By: #### L [id number] ####[facility] ([facility])[address] [place] [address] Potassium [Moles/Vol] 3.9 mmol/L Normal 3.5-5.1 [facility] Comment on above: Performed By: #### L [id number] ####[facility] ([facility])[address] [place] [address] Sodium [Moles/Vol] 137 mmol/L Normal 136-145 [facility] Comment on above: Performed By: #### L [id number] ####[facility] ([facility])[address] [place] [address] Urea nitrogen [Mass/Vol] 33 mg/dL High 7-25 [facility] Comment on above: Performed By: #### L [id number] ####[facility] ([facility])[address] [place] [address] UREA NITROGEN/CREATININE (MASS RATIO) IN SER/PLAS 34.0 Normal [facility] Comment on above: Performed By: #### L [id number] ####[facility] [place] [address] CBC WITH AUTO DIFFERENTIALon 08-20-2024 Basophils (Bld) [#/Vol] 0.04 10*3/uL Normal 0.00-0.20 [facility] Comment on above: Performed By: #### L [id number] ####[facility] [place] [address] Basophils/100 WBC (Bld) 0.4 % Normal 0.0-1.0 [facility] Comment on above: Performed By: #### L [id number] ####[facility] ([facility])[address] [place] [address] Eosinophils (Bld) [#/Vol] 0.58 10*3/uL High 0.00-0.50 [facility] Comment on above: Performed By: #### L [id number] ####[facility] ([facility] [place] [address] Eosinophils/100 WBC (Bld) 5.6 % Normal 0.0-6.0 [facility] Comment on above: Performed By: #### L [id number] ####[facility] [place] [address] Erythrocyte distribution width (RBC) [Ratio] 15.1 % High 11.5-15.0 [facility] Comment on above: Performed By: #### L [id number] ####[facility] (BEAKER)[address] [place] [address] ERYTHROCYTE MEAN CORPUSCULAR HEMOGLOBIN CONCENTRATION (G/DL) BY AUTOMATED 30.5 g/dL Low 32.0-35.0 [facility] Comment on above: Performed By: #### L [id number] ####[facility] (BEAKER)[address] [place] [address] Hematocrit (Bld) [Volume fraction] 52.1 % Normal 39.0-55.0 [facility] Comment on above: Performed By: #### L [id number] ####[facility] (BEAKER)[address] [place] [address] Hemoglobin (Bld) [Mass/Vol] 15.9 g/dL Normal 13.0-17.0 [facility] Comment on above: Performed By: #### L [id number] ####[facility] [place] [address] Immature granulocytes (Bld) [#/Vol] 0.07 10*3/uL Normal 0.00-0.20 [facility] Comment on above: Performed By: #### L [id number] ####[facility] (BEAKER)[address] [place] [address] Immature granulocytes/100 WBC (Bld) 0.7 % Normal 0.0-1.0 [facility] Comment on above: Performed By: #### L [id number] ####[facility] (BEAKER)[address] [place] [address] Lymphocytes (Bld) [#/Vol] 0.94 10*3/uL Low 1.20-4.00 [facility] Comment on above: Performed By: #### L [id number] ####[facility] ([facility])[address] [place] [address] Lymphocytes/100 WBC (Bld) 9.1 % Low 20.0-45.0 [facility] Comment on above: Performed By: #### L [id number] ####[facility] ([facility])[address] [place] [address] MCH (RBC) [Entitic mass] 29.0 pg Normal 27.0-33.0 [facility] Comment on above: Performed By: #### L [id number] ####[facility] ([facility])[address] [place] [address] MCV (RBC) [Entitic vol] 94.9 fL Normal 82.0-98.0 [facility] Comment on above: Performed By: #### L [id number] ####[facility] [place] [address] Monocytes (Bld) [#/Vol] 0.95 10*3/uL Normal 0.10-1.00 [facility] Comment on above: Performed By: #### L [id number] ####[facility] ([facility])[address] [place] [address] Monocytes/100 WBC (Bld) 9.2 % Normal 5.0-12.0 [facility] Comment on above: Performed By: #### L [id number] ####[facility] ([facility])[address] [place] [address] Neutrophils (Bld) [#/Vol] 7.72 10*3/uL High 1.60-7.60 [facility] Comment on above: Performed By: #### L [id number] ####[facility] ([facility])[address] [place] [address] Neutrophils/100 WBC (Bld) 75.0 % High 40.0-72.0 [facility] Comment on above: Performed By: #### L [id number] ####[facility] ([facility])[address] [place] [address] NRBC (PER 100 WBCS) BY AUTOMATED COUNT 0.0 % Normal 0 [facility] Comment on above: Performed By: #### L [id number] ####[facility] ([facility])[address] [place] [address] PLATELETS (10*3/UL) IN BLOOD AUTOMATED COUNT 209 10*3/uL Normal 150-400 [facility] Comment on above: Performed By: #### L [id number] ####[facility] [place] [address] RBC (Bld) [#/Vol] 5.49 10*6/uL Normal 4.20-5.70 [facility] Comment on above: Performed By: #### L [id number] ####[facility] ([facility])[address] [place] [address] WBC (Bld) [#/Vol] 10.30 10*3/uL Normal 4.00-10.60 [facility] Comment on above: Performed By: #### L [id number] ####[facility] ([facility])[address] [place] [address] MAGNESIUMon 08-20-2024 Magnesium [Mass/Vol] 1.9 mg/dL Normal 1.9-2.7 [facility] Comment on above: Performed By: #### L [id number] ####[facility] ([facility])[address] [place] [address] PHOSPHORUSon 08-20-2024 Magnesium [Mass/Vol] 2.1 mg/dL Low 2.5-5.0 [facility] Comment on above: Performed By: #### L [id number] ####[facility] ([facility])[address] [place] [address] POCT GLUCOSE METER UNSOLICIT ED RESULTSon 08-20-2024 Glucose [Mass/Vol] 268 mg/dL High 70-105 [facility] Comment on above: Order Comment: Waive d Testing in the ED is performed under the ED CLIA certificate #[id number]. Result Comment: [email or web address] [email or web address] Performed By: #### L [id number] ####[facility] ([facility])[address] [place] [address] 30on 08-19-2024 30 Normal [facility] 30 Normal [facility] ANTI-XA (HEPARIN LEVEL)on HEPARIN UNFRACTIONATED (U/ML) IN PPP BY CHROMOGENIC METHOD 0.41 IU/mL Normal 0.3-0.7 [facility] Comment on above: Result Comment: [place] roxaban and Apixaban will interfere with the anti Xa assay used to monitor UFH and LMWH. Performed By: #### L [id number] ####[facility] ([facility])[address] [place] [address] BASIC METABOLIC PANELon -3 Anion gap [Moles/Vol] 8 mmol/L Normal 7-20 [facility] Comment on above: Performed By: #### L [id number] ####[facility] ([facility])[address] [place] [address] Calcium [Mass/Vol] 8.9 mg/dL Normal 8.6-10.3 [facility] Comment on above: Performed By: #### L [id number] ####[facility] ([facility])[address] [place] [address] Chloride [Moles/Vol] 99 mmol/L Normal 98-107 [facility] Comment on above: Performed By: #### L [id number] ####[facility] ([facility])[address] [place] [address] CO2 [Moles/Vol] 37 mmol/L High 21-31 [facility] Comment on above: Performed By: #### L [id number] ####[facility] ([facility])[address] [place] [address] Creatinine [Mass/Vol] 1.00 mg/dL Normal 0.70-1.30 [facility] Comment on above: Performed By: #### L [id number] ####[facility] [place] [address] GLOMERULAR FILTRATION RATE ML/MIN/1.73 SQ M.PREDICTED 83.5 mL/min/1.73m*2 Normal >60.[address] [facility] Comment on above: Result Comment: [facility]???s estimated glomerular filtration rate (eGFR) will [...] of individuals. Performed By: #### L [id number] ####[facility] [place] [address] Glucose [Mass/Vol] 219 mg/dL High 70-100 [facility] Comment on above: Performed By: #### L [id number] ####[facility] [place] [address] Potassium [Moles/Vol] 3.9 mmol/L Normal 3.5-5.1 [facility] Comment on above: Performed By: #### L [id number] ####[facility] ([facility])[address] [place] [address] Sodium [Moles/Vol] 140 mmol/L Normal 136-145 [facility] Comment on above: Performed By: #### L [id number] ####[facility] ([facility])[address] [place] [address] Urea nitrogen [Mass/Vol] 28 mg/dL High 7-25 [facility] Comment on above: Performed By: #### L [id number] ####[facility] ([facility])[address] [place] [address] UREA NITROGEN/CREATININE (MASS RATIO) IN SER/PLAS 28.0 Normal [facility] Comment on above: Performed By: #### L [id number] ####[facility] ([facility])[address] [place] [address] CBC WITH AUTO DIFFERENTIALon 08-19-2024 Basophils (Bld) [#/Vol] 0.04 10*3/uL Normal 0.00-0.20 [facility] Comment on above: Performed By: #### L [id number] ####[facility] ([facility])[address] [place] [address] Basophils/100 WBC (Bld) 0.4 % Normal 0.0-1.0 [facility] Comment on above: Performed By: #### L [id number] ####[facility] ([facility] [place] [address] Eosinophils (Bld) [#/Vol] 0.62 10*3/uL High 0.00-0.50 [facility] Comment on above: Performed By: #### L [id number] ####[facility] ([facility])[address] [place] [address] Eosinophils/100 WBC (Bld) 6.7 % High 0.0-6.0 [facility] Comment on above: Performed By: #### L [id number] ####[facility] ([facility])[address] [place] [address] Erythrocyte distribution width (RBC) [Ratio] 15.4 % High 11.5-15.0 [facility] Comment on above: Performed By: #### L [id number] ####[facility] ([facility])[address] [place] [address] ERYTHROCYTE MEAN CORPUSCULAR HEMOGLOBIN CONCENTRATION (G/DL) BY AUTOMATED 29.8 g/dL Low 32.0-35.0 [facility] Comment on above: Performed By: #### L [id number] ####[facility] ([facility])[address] [place] [address] Hematocrit (Bld) [Volume fraction] 49.4 % Normal 39.0-55.0 [facility] Comment on above: Performed By: #### L [id number] ####[facility] ([facility])[address] [place] [address] Hemoglobin (Bld) [Mass/Vol] 14.7 g/dL Normal 13.0-17.0 [facility] Comment on above: Performed By: #### L [id number] ####[facility] ([facility])[address] [place] [address] Immature granulocytes (Bld) [#/Vol] 0.06 10*3/uL Normal 0.00-0.20 [facility] Comment on above: Performed By: #### L [id number] ####[facility] ([facility])[address] [place] [address] Immature granulocytes/100 WBC (Bld) 0.7 % Normal 0.0-1.0 [facility] Comment on above: Performed By: #### L [id number] ####[facility] ([facility])[address] [place] [address] Lymphocytes (Bld) [#/Vol] 0.86 10*3/uL Low 1.20-4.00 [facility] Comment on above: Performed By: #### L [id number] ####[facility] ([facility])[address] [place] [address] Lymphocytes/100 WBC (Bld) 9.3 % Low 20.0-45.0 [facility] Comment on above: Performed By: #### L [id number] ####[facility] ([facility])[address] [place] [address] MCH (RBC) [Entitic mass] 28.9 pg Normal 27.0-33.0 [facility] Comment on above: Performed By: #### L [id number] ####[facility] ([facility])[address] [place] [address] MCV (RBC) [Entitic vol] 97.2 fL Normal 82.0-98.0 [facility] Comment on above: Performed By: #### L [id number] ####[facility] ([facility])[address] [place] [address] Monocytes (Bld) [#/Vol] 0.94 10*3/uL Normal 0.10-1.00 [facility] Comment on above: Performed By: #### L [id number] ####[facility] ([facility])[address] [place] [address] Monocytes/100 WBC (Bld) 10.2 % Normal 5.0-12.0 [facility] Comment on above: Performed By: #### L [id number] ####[facility] ([facility] [place] [address] Neutrophils (Bld) [#/Vol] 6.68 10*3/uL Normal 1.60-7.60 [facility] Comment on above: Performed By: #### L [id number] ####[facility] ([facility])[address] [place] [address] Neutrophils/100 WBC (Bld) 72.7 % High 40.0-72.0 [facility] Comment on above: Performed By: #### L [id number] ####[facility] [place] [address] NRBC (PER 100 WBCS) BY AUTOMATED COUNT 0.0 % Normal 0 [facility] Comment on above: Performed By: #### L [id number] ####[facility] ([facility] [place] [address] PLATELETS (10*3/UL) IN BLOOD AUTOMATED COUNT 198 10*3/uL Normal 150-400 [facility] Comment on above: Performed By: #### L [id number] ####[facility] ([facility])[address] [place] [address] RBC (Bld) [#/Vol] 5.08 10*6/uL Normal 4.20-5.70 [facility] Comment on above: Performed By: #### L [id number] ####[facility] [place] [address] WBC (Bld) [#/Vol] 9.20 10*3/uL Normal 4.00-10.60 [facility] Comment on above: Performed By: #### L [id number] ####[facility] ([facility] [place] [address] CONSULTon 08-19-2024 CONSULT Normal [facility] MAGNESIUMon 08-19-2024 Magnesium [Mass/Vol] 1.9 mg/dL Normal 1.9-2.7 [facility] Comment on above: Performed By: #### L [id number] ####[facility] ([facility])[address] [place] [address] PHOSPHORUSon 08-19-2024 Magnesium [Mass/Vol] 2.9 mg/dL Normal 2.5-5.0 [facility] Comment on above: Performed By: #### L [id number] ####[facility] ([facility])[address] [employer] PharmaceuticalsSELECT [facility] [place] [address] POCT GLUCOSE METER UNSOLICIT ED RESULTSon 08-19-2024 Glucose [Mass/Vol] 239 mg/dL High 70-105 [facility] Comment on above: Order Comment: Waive d Testing in the ED is performed under the ED CLIA certificate #[id number]. Result Comment: [email or web address] Performed By: #### L [id number] ####[facility] ([facility])[address] [place] [address] Glucose [Mass/Vol] 251 mg/dL High 70-105 [facility] Comment on above: Order Comment: Waive d Testing in the ED is performed under the ED CLIA certificate #[id number]. Result Comment: [email or web address] [email or web address] Performed By: #### L [id number] ####[facility] ([facility])[address] [place] [address] Glucose [Mass/Vol] 185 mg/dL High 70-105 [facility] Comment on above: Order Comment: Waive d Testing in the ED is performed under the ED CLIA certificate #[id number]. Result Comment: [email or web address] [email or web address] Performed By: #### L [id number] ####[facility] ([employer])[address] [employer] Pharmaceuticals[facility] [place] [address] TRIGLYCERIDESon 08-19-2024 FASTING? UNKNOWN Normal [facility] Comment on above: Performed By: #### L [id number] ####[facility] ([facility])[address] [place] [address] Magnesium [Mass/Vol] 192 mg/dL High 40-149 [facility] Comment on above: Result Comment: TRIG LYCERIDE REFERENCE RANGE:20 YEARS AND OLDER CARDIOVASCULAR RISKLESS THAN 150 mg/dL LOW [id number] TO 199 mg/dL BORDERLINE [id number] mg/dL AND GREATER HIGH RISK Performed By: #### L [id number] ####[facility] [place] [address] ANTI-XA (HEPARIN LEVEL)on HEPARIN UNFRACTIONATED (U/ML) IN PPP BY CHROMOGENIC METHOD 0.50 IU/mL Normal 0.3-0.7 [facility] Comment on above: Result Comment: [place] roxaban and Apixaban will interfere with the anti Xa assay used to monitor UFH and LMWH. Performed By: #### L [id number] ####[facility] ([facility])[address] [place] [address] HEPARIN UNFRACTIONATED (U/ML) IN PPP BY CHROMOGENIC METHOD 0.60 IU/mL Normal 0.3-0.7 [facility] Comment on above: Result Comment: [place] roxaban and Apixaban will interfere with the anti Xa assay used to monitor UFH and LMWH. Performed By: #### L [id number] ####[facility] ([facility])[address] [place] [address] BASIC METABOLIC PANELon 07-22 Anion gap [Moles/Vol] 8 mmol/L Normal 7-20 [facility] Comment on above: Performed By: #### L [id number] ####[facility] ([facility])[address] [place] [address] Calcium [Mass/Vol] 8.7 mg/dL Normal 8.6-10.3 [facility] Comment on above: Performed By: #### L [id number] ####[facility] ([facility])[address] [place] [address] Chloride [Moles/Vol] 98 mmol/L Normal 98-107 [facility] Comment on above: Performed By: #### L [id number] ####[facility] ([facility])[address] [facility] [place] [address] CO2 [Moles/Vol] 41 mmol/L Critically high 21-31 [facility] Comment on above: Performed By: #### L [id number] ####[facility] ([facility])[address] [place] [address] Creatinine [Mass/Vol] 1.05 mg/dL Normal 0.70-1.30 [facility] Comment on above: Performed By: #### L [id number] ####[facility] ([facility])[address] [place] [address] GLOMERULAR FILTRATION RATE ML/MIN/1.73 SQ M.PREDICTED 78.8 mL/min/1.73m*2 Normal >60.[address] [facility] Comment on above: Result Comment: [facility]???s estimated glomerular filtration rate (eGFR) will [...] of individuals. Performed By: #### L [id number] ####[facility] ([facility])[address] [place] [address] Glucose [Mass/Vol] 201 mg/dL High 70-100 [facility] Comment on above: Performed By: #### L [id number] ####[facility] ([facility])[address] [place] [address] Potassium [Moles/Vol] 3.7 mmol/L Normal 3.5-5.1 [facility] Comment on above: Performed By: #### L [id number] ####[facility] ([facility])[address] [place] [address] Sodium [Moles/Vol] 143 mmol/L Normal 136-145 [facility] Comment on above: Performed By: #### L [id number] ####[facility] ([facility])[address] [place] [address] Urea nitrogen [Mass/Vol] 25 mg/dL Normal 7-25 [facility] Comment on above: Performed By: #### L [id number] ####[facility] ([facility])[address] [place] [address] UREA NITROGEN/CREATININE (MASS RATIO) IN SER/PLAS 23.8 Normal [facility] Comment on above: Performed By: #### L [id number] ####[facility] ([facility])[address] [place] [address] CBC WITH AUTO DIFFERENTIALon 08-18-2024 Basophils (Bld) [#/Vol] 0.03 10*3/uL Normal 0.00-0.20 [facility] Comment on above: Performed By: #### L [id number] ####[facility] ([facility])[address] [place] [address] Basophils/100 WBC (Bld) 0.3 % Normal 0.0-1.0 [facility] Comment on above: Performed By: #### L [id number] ####[facility] ([facility])[address] [place] [address] Eosinophils (Bld) [#/Vol] 0.45 10*3/uL Normal 0.00-0.50 [facility] Comment on above: Performed By: #### L [id number] ####[facility] ([facility])[address] [place] [address] Eosinophils/100 WBC (Bld) 5.0 % Normal 0.0-6.0 [facility] Comment on above: Performed By: #### L [id number] ####[facility] ([facility])[address] [place] [address] Erythrocyte distribution width (RBC) [Ratio] 15.5 % High 11.5-15.0 [facility] Comment on above: Performed By: #### L [id number] ####[facility] ([facility])[address] [place] [address] ERYTHROCYTE MEAN CORPUSCULAR HEMOGLOBIN CONCENTRATION (G/DL) BY AUTOMATED 29.7 g/dL Low 32.0-35.0 [facility] Comment on above: Performed By: #### L [id number] ####[facility] ([facility])[address] [place] [address] Hematocrit (Bld) [Volume fraction] 49.5 % Normal 39.0-55.0 [facility] Comment on above: Performed By: #### L [id number] ####[facility] ([facility])[address] [place] [address] Hemoglobin (Bld) [Mass/Vol] 14.7 g/dL Normal 13.0-17.0 [facility] Comment on above: Performed By: #### L [id number] ####[facility] ([facility])[address] [place] [address] Immature granulocytes (Bld) [#/Vol] 0.05 10*3/uL Normal 0.00-0.20 [facility] Comment on above: Performed By: #### L [id number] ####[facility] [place] [address] Immature granulocytes/100 WBC (Bld) 0.6 % Normal 0.0-1.0 [facility] Comment on above: Performed By: #### L [id number] ####[facility] ([facility])[address] [place] [address] Lymphocytes (Bld) [#/Vol] 0.93 10*3/uL Low 1.20-4.00 [facility] Comment on above: Performed By: #### L [id number] ####[facility] ([facility])[address] [place] [address] Lymphocytes/100 WBC (Bld) 10.4 % Low 20.0-45.0 [facility] Comment on above: Performed By: #### L [id number] ####[facility] ([facility])[address] [place] [address] MCH (RBC) [Entitic mass] 29.2 pg Normal 27.0-33.0 [facility] Comment on above: Performed By: #### L [id number] ####[facility] ([facility])[address] [place] [address] MCV (RBC) [Entitic vol] 98.2 fL High 82.0-98.0 [facility] Comment on above: Performed By: #### L [id number] ####[facility] [place] [address] Monocytes (Bld) [#/Vol] 1.06 10*3/uL High 0.10-1.00 [facility] Comment on above: Performed By: #### L [id number] ####[facility] ([facility] [place] [address] Monocytes/100 WBC (Bld) 11.9 % Normal 5.0-12.0 [facility] Comment on above: Performed By: #### L [id number] ####[facility] ([facility])[address] [place] [address] Neutrophils (Bld) [#/Vol] 6.41 10*3/uL Normal 1.60-7.60 [facility] Comment on above: Performed By: #### L [id number] ####[facility] ([facility])[address] [place] [address] Neutrophils/100 WBC (Bld) 71.8 % Normal 40.0-72.0 [facility] Comment on above: Performed By: #### L [id number] ####[facility] [place] [address] NRBC (PER 100 WBCS) BY AUTOMATED COUNT 0.0 % Normal 0 [facility] Comment on above: Performed By: #### L [id number] ####[facility] [place] [address] PLATELETS (10*3/UL) IN BLOOD AUTOMATED COUNT 208 10*3/uL Normal 150-400 [facility] Comment on above: Performed By: #### L [id number] ####[facility] [place] [address] RBC (Bld) [#/Vol] 5.04 10*6/uL Normal 4.20-5.70 [facility] Comment on above: Performed By: #### L [id number] ####[facility] ([facility])[address] [place] [address] WBC (Bld) [#/Vol] 8.93 10*3/uL Normal 4.00-10.60 [facility] Comment on above: Performed By: #### L [id number] ####[facility] ([facility])[address] [place] [address] CONSULTon 08-18-2024 CONSULT Normal [facility] MAGNESIUMon 08-18-2024 Magnesium [Mass/Vol] 2.1 mg/dL Normal 1.9-2.7 [facility] Comment on above: Performed By: #### L [id number] ####[facility] ([facility])[address] [place] [address] PHOSPHORUSon 08-18-2024 Magnesium [Mass/Vol] 2.9 mg/dL Normal 2.5-5.0 [facility] Comment on above: Performed By: #### L [id number] ####[facility] ([facility])[address] [place] [address] POCT GLUCOSE METER UNSOLICIT ED RESULTSon 08-18-2024 Glucose [Mass/Vol] 194 mg/dL High 70-105 [facility] Comment on above: Order Comment: Waive d Testing in the ED is performed under the ED CLIA certificate #[id number]. Result Comment: [email or web address] [email or web address] Performed By: #### L [id number] ####[facility] ([facility])[address] [place] [address] Glucose [Mass/Vol] 183 mg/dL High 70-105 [facility] Comment on above: Order Comment: Waive d Testing in the ED is performed under the ED CLIA certificate #[id number]. Result Comment: ezab [email or web address] Performed By: #### L [id number] ####[facility] [place] [address] Glucose [Mass/Vol] 173 mg/dL High 70-105 [facility] Comment on above: Order Comment: Waive d Testing in the ED is performed under the ED CLIA certificate #[id number]. Result Comment: ezab ors2 Performed By: #### L [id number] ####[facility] [place] [address] Glucose [Mass/Vol] 200 mg/dL High 70-105 [facility] Comment on above: Order Comment: Waive d Testing in the ED is performed under the ED CLIA certificate #[id number]. Result Comment: [email or web address] [email or web address] Performed By: #### L [id number] ####[facility] ([facility])[address] [place] [address] SPUTUM CULTUREon 08-18-2024 Clindamycin [Susc] <=0.5 Susceptible [facility] Comment on above: Performed By: #### L [id number] ####[facility] ([facility])[address] [place] [address] DAPTOmycin [Susc] <=1 Susceptible [facility] Comment on above: Performed By: #### L [id number] ####[facility] ([facility])[address] [place] [address] Linezolid [Susc] <=1 Susceptible [facility] Comment on above: Performed By: #### L [id number] ####[facility] ([facility])[address] [place] [address] Oxacillin [Susc] >2 Resistant [facility] Comment on above: Performed By: #### L [id number] ####[facility] ([facility] [place] [address] Tetracycline [Susc] <=0.5 Susceptible [facility] Comment on above: Performed By: #### L [id number] ####[facility] ([facility])[address] [place] [address] Trimethoprim+Sulfameth oxazole [Susc] <=0.5/9.5 Susceptible [facility] Comment on above: Performed By: #### L [id number] ####[facility] ([facility])[address] [place] [address] Vancomycin [Susc] <=0.5 Susceptible [facility] Comment on above: Performed By: #### L [id number] ####[facility] ([facility] [place] [address] TRIGLYCERIDESon 08-18-2024 FASTING? unknown [facility] Comment on above: Performed By: #### L [id number] ####[facility] ([facility])[address] [place] [address] Magnesium [Mass/Vol] 154 mg/dL High 40-149 [facility] Comment on above: Result Comment: TRIG LYCERIDE REFERENCE RANGE:20 YEARS AND OLDER CARDIOVASCULAR RISKLESS THAN 150 mg/dL LOW [id number] TO 199 mg/dL BORDERLINE [id number] mg/dL AND GREATER HIGH RISK Performed By: #### L [id number] ####[facility] ([facility])[address] [place] [address] 30on 08-17-2024 30 Normal [facility] ANTI-XA (HEPARIN LEVEL)on HEPARIN UNFRACTIONATED (U/ML) IN PPP BY CHROMOGENIC METHOD 0.86 IU/mL High 0.3-0.7 [facility] Comment on above: Result Comment: [place] roxaban and Apixaban will interfere with the anti Xa assay used to monitor UFH and LMWH. Performed By: #### L [id number] ####[facility] ([facility])[address] [place] [address] HEPARIN UNFRACTIONATED (U/ML) IN PPP BY CHROMOGENIC METHOD >1.00 Critically high 0.3-0.7 [facility] Comment on above: Result Comment: [place] roxaban and Apixaban will interfere with the anti Xa assay used to monitor UFH and LMWH. Performed By: #### L [id number] ####[facility] ([facility])[address] [place] [address] HEPARIN UNFRACTIONATED (U/ML) IN PPP BY CHROMOGENIC METHOD >1.00 Critically high 0.3-0.7 [facility] Comment on above: Performed By: #### L [id number] ####[facility] ([facility])[address] [place] [address] APTTon 08-17-2024 ACTIVATED PARTIAL THROMBOPLASTIN TIME IN PPP BY COAGULATION ASSAY 99.6 Seconds High 25.0-35.0 [facility] Comment on above: Result Comment: Clin ical significance of the APTT is questionable in the presence of heparin. Performed By: #### L [id number] ####[facility] ([facility])[address] [facility] [place] [address] ACTIVATED PARTIAL THROMBOPLASTIN TIME IN PPP BY COAGULATION ASSAY 98.9 Seconds High 25.0-35.0 [facility] Comment on above: Result Comment: Clin ical significance of the APTT is questionable in the presence of heparin. Performed By: #### L [id number] ####[facility] ([facility])[address] [place] [address] B-TYPE NATRIURETIC PEPTIDEon 08-17-2024 Natriuretic peptide B (Bld) [Mass/Vol] 75 pg/mL Normal 0-100 [facility] Comment on above: Performed By: #### L [id number] ####[facility] ([facility])[address] [place] [address] BASIC METABOLIC PANELon 07-22 Anion gap [Moles/Vol] 9 mmol/L Normal 7-20 [facility] Comment on above: Performed By: #### L [id number] ####[facility] ([facility])[address] [place] [address] Calcium [Mass/Vol] 8.8 mg/dL Normal 8.6-10.3 [facility] Comment on above: Performed By: #### L [id number] ####[facility] ([facility])[address] [place] [address] Chloride [Moles/Vol] 97 mmol/L Low 98-107 [facility] Comment on above: Performed By: #### L [id number] ####[facility] [place] [address] CO2 [Moles/Vol] 45 mmol/L Critically high 21-31 [facility] Comment on above: Performed By: #### L [id number] ####[facility] ([facility])[address] [place] [address] Creatinine [Mass/Vol] 0.93 mg/dL Normal 0.70-1.30 [facility] Comment on above: Performed By: #### L [id number] ####[facility] ([facility])[address] [place] [address] GLOMERULAR FILTRATION RATE ML/MIN/1.73 SQ M.PREDICTED 91.1 mL/min/1.73m*2 Normal >60.[address] [facility] Comment on above: Result Comment: [facility]???s estimated glomerular filtration rate (eGFR) will [...] of individuals. Performed By: #### L [id number] ####[facility] ([facility])[address] [place] [address] Glucose [Mass/Vol] 190 mg/dL High 70-100 [facility] Comment on above: Performed By: #### L [id number] ####[facility] [place] [address] Potassium [Moles/Vol] 3.5 mmol/L Normal 3.5-5.1 [facility] Comment on above: Performed By: #### L [id number] ####[facility] [place] [address] Sodium [Moles/Vol] 147 mmol/L High 136-145 [facility] Comment on above: Performed By: #### L [id number] ####[facility] ([facility])[address] [place] [address] Urea nitrogen [Mass/Vol] 28 mg/dL High 7-25 [facility] Comment on above: Performed By: #### L [id number] ####[facility] ([facility])[address] [place] [address] UREA NITROGEN/CREATININE (MASS RATIO) IN SER/PLAS 30.1 Normal [facility] Comment on above: Performed By: #### L [id number] ####[facility] ([facility])[address] [place] [address] CBC WITH AUTO DIFFERENTIALon 08-17-2024 Basophils (Bld) [#/Vol] 0.02 10*3/uL Normal 0.00-0.20 [facility] Comment on above: Performed By: #### L [id number] ####[facility] ([facility])[address] [place] [address] Basophils/100 WBC (Bld) 0.2 % Normal 0.0-1.0 [facility] Comment on above: Performed By: #### L [id number] ####[facility] ([facility])[address] [place] [address] Eosinophils (Bld) [#/Vol] 0.20 10*3/uL Normal 0.00-0.50 [facility] Comment on above: Performed By: #### L [id number] ####[facility] ([facility])[address] [place] [address] Eosinophils/100 WBC (Bld) 2.4 % Normal 0.0-6.0 [facility] Comment on above: Performed By: #### L [id number] ####[facility] ([facility])[address] [place] [address] Erythrocyte distribution width (RBC) [Ratio] 15.3 % High 11.5-15.0 [facility] Comment on above: Performed By: #### L [id number] ####[facility] ([facility])[address] [place] [address] ERYTHROCYTE MEAN CORPUSCULAR HEMOGLOBIN CONCENTRATION (G/DL) BY AUTOMATED 30.0 g/dL Low 32.0-35.0 [facility] Comment on above: Performed By: #### L [id number] ####[facility] ([facility])[address] [place] [address] Hematocrit (Bld) [Volume fraction] 49.7 % Normal 39.0-55.0 [facility] Comment on above: Performed By: #### L [id number] ####[facility] ([facility])[address] [place] [address] Hemoglobin (Bld) [Mass/Vol] 14.9 g/dL Normal 13.0-17.0 [facility] Comment on above: Performed By: #### L [id number] ####[facility] ([facility])[address] [place] [address] Immature granulocytes (Bld) [#/Vol] 0.04 10*3/uL Normal 0.00-0.20 [facility] Comment on above: Performed By: #### L [id number] ####[facility] ([facility])[address] [place] [address] Immature granulocytes/100 WBC (Bld) 0.5 % Normal 0.0-1.0 [facility] Comment on above: Performed By: #### L [id number] ####[facility] ([facility])[address] [place] [address] Lymphocytes (Bld) [#/Vol] 0.87 10*3/uL Low 1.20-4.00 [facility] Comment on above: Performed By: #### L [id number] ####[facility] ([facility])[address] [place] [address] Lymphocytes/100 WBC (Bld) 10.5 % Low 20.0-45.0 [facility] Comment on above: Performed By: #### L [id number] ####[facility] ([facility])[address] [place] [address] MCH (RBC) [Entitic mass] 29.0 pg Normal 27.0-33.0 [facility] Comment on above: Performed By: #### L [id number] ####[facility] ([facility])[address] [place] [address] MCV (RBC) [Entitic vol] 96.9 fL Normal 82.0-98.0 [facility] Comment on above: Performed By: #### L [id number] ####[facility] ([facility])[address] [place] [address] Monocytes (Bld) [#/Vol] 1.21 10*3/uL High 0.10-1.00 [facility] Comment on above: Performed By: #### L [id number] ####[facility] ([facility])[address] [place] [address] Monocytes/100 WBC (Bld) 14.6 % High 5.0-12.0 [facility] Comment on above: Performed By: #### L [id number] ####[facility] ([facility])[address] [place] [address] Neutrophils (Bld) [#/Vol] 5.97 10*3/uL Normal 1.60-7.60 [facility] Comment on above: Performed By: #### L [id number] ####[facility] ([facility])[address] [place] [address] Neutrophils/100 WBC (Bld) 71.8 % Normal 40.0-72.0 [facility] Comment on above: Performed By: #### L [id number] ####[facility] ([facility] [place], [place] [address] NRBC (PER 100 WBCS) BY AUTOMATED COUNT 0.0 % Normal 0 [facility] Comment on above: Performed By: #### L [id number] ####[facility] ([facility])[address] [place] [address] PLATELETS (10*3/UL) IN BLOOD AUTOMATED COUNT 210 10*3/uL Normal 150-400 [facility] Comment on above: Performed By: #### L [id number] ####[facility] ([facility])[address] [place] [address] RBC (Bld) [#/Vol] 5.13 10*6/uL Normal 4.20-5.70 [facility] Comment on above: Performed By: #### L [id number] ####[facility] ([facility])[address] [place] [address] WBC (Bld) [#/Vol] 8.31 10*3/uL Normal 4.00-10.60 [facility] Comment on above: Performed By: #### L [id number] ####[facility] ([facility])[address] [place] [address] MAGNESIUMon 08-17-2024 Magnesium [Mass/Vol] 2.2 mg/dL Normal 1.9-2.7 [facility] Comment on above: Performed By: #### L [id number] ####[facility] ([facility])[address] [place] [address] Magnesium [Mass/Vol] 1.8 mg/dL Low 1.9-2.7 [facility] Comment on above: Performed By: #### L [id number] ####[facility] ([facility])[address] [place] [address] Magnesium [Mass/Vol] 1.6 mg/dL Low 1.9-2.7 [facility] Comment on above: Performed By: #### L [id number] ####[facility] ([facility])[address] [place] [address] PHOSPHORUSon 08-17-2024 Magnesium [Mass/Vol] 3.2 mg/dL Normal 2.5-5.0 [facility] Comment on above: Performed By: #### L [id number] ####[facility] ([facility] [place] [address] POCT GLUCOSE METER UNSOLICIT ED RESULTSon 08-17-2024 Glucose [Mass/Vol] 184 mg/dL High 70-105 [facility] Comment on above: Order Comment: Waive d Testing in the ED is performed under the ED CLIA certificate #[id number]. Result Comment: umesh sheikh Performed By: #### L [id number] ####[facility] ([facility])[address] [facility] [place] [address] Glucose [Mass/Vol] 191 mg/dL High 70-105 [facility] Comment on above: Order Comment: Waive d Testing in the ED is performed under the ED CLIA certificate #[id number]. Result Comment: [email or web address] [email or web address] Performed By: #### L [id number] ####[facility] ([facility])[address] [place] [address] POTASSIUMon 08-17-2024 Potassium [Moles/Vol] 3.8 mmol/L Normal 3.5-5.1 [facility] Comment on above: Performed By: #### L [id number] ####[facility] ([facility])[address] [place] [address] Potassium [Moles/Vol] 3.7 mmol/L Normal 3.5-5.1 [facility] Comment on above: Performed By: #### L [id number] ####[facility] ([facility])[address] [place] [address] PROTIME-INRon 08-17-2024 INR IN PPP BY COAGULATION ASSAY 1.19 High 0.90-1.10 [facility] Comment on above: Result Comment: ACCC [...] CHEST 1995;108:[id number]. Performed By: #### L [id number] ####[facility] ([employer])[address] [employer] [facility] [address] PROTHROMBIN TIME (PT) IN PPP BY COAGULATION ASSAY 15.0 Seconds High 12.3-14.8 [facility] Comment on above: Performed By: #### L [id number] ####[facility] ([employer])[address] [place] [address] INR IN PPP BY COAGULATION ASSAY 1.19 High 0.90-1.10 [facility] Comment on above: Result Comment: ACCC [...] CHEST 1995;108:[id number]. Performed By: #### L [id number] ####[facility] [employer])[address] [place] [address] PROTHROMBIN TIME (PT) IN PPP BY COAGULATION ASSAY 15.1 Seconds High 12.3-14.8 [facility] Comment on above: Performed By: #### L [id number] ####[facility] ([facility])[address] [place] [address] TRIGLYCERIDESon 08-17-2024 FASTING? Unknown Normal [facility] Comment on above: Performed By: #### L [id number] ####[facility] ([facility])[address] [place] [address] Magnesium [Mass/Vol] 119 mg/dL Normal 40-149 [facility] Comment on above: Result Comment: TRIG LYCERIDE REFERENCE RANGE:20 YEARS AND OLDER CARDIOVASCULAR RISKLESS THAN 150 mg/dL LOW [id number] TO 199 mg/dL BORDERLINE [id number] mg/dL AND GREATER HIGH RISK Performed By: #### L [id number] ####[facility] ([facility])[address] [place] [address] TROPONIN Ion 08-17-2024 Troponin I.cardiac [Mass/Vol] 0.04 ng/mL Normal 0.00-0.04 [facility] Comment on above: Performed By: #### L [id number] ####[facility] ([facility])[address] [place] [address] Troponin I.cardiac [Mass/Vol] 0.04 ng/mL Normal 0.00-0.04 [facility] Comment on above: Performed By: #### L [id number] ####[facility] ([facility])[address] [place] [address] VANCOMYCIN, TROUGHon 025 VANCOMYCIN (UG/ML) IN SER/PLAS - TROUGH 23.6 ug/mL Critically high 5.0-20.0 [facility] Comment on above: Performed By: #### L [id number] ####[facility] ([facility])[address] [place] [address] BASIC METABOLIC PANELon 07-22 Anion gap [Moles/Vol] 11 mmol/L Normal 7-20 [facility] Comment on above: Performed By: #### L [id number] ####[facility] ([facility])[address] [place] [address] Calcium [Mass/Vol] 8.9 mg/dL Normal 8.6-10.3 [facility] Comment on above: Performed By: #### L [id number] ####[facility] [place] [address] Chloride [Moles/Vol] 99 mmol/L Normal 98-107 [facility] Comment on above: Performed By: #### L [id number] ####[facility] ([facility] [place] [address] CO2 [Moles/Vol] 38 mmol/L High 21-31 [facility] Comment on above: Performed By: #### L [id number] ####[facility] ([facility] [place] [address] Creatinine [Mass/Vol] 1.10 mg/dL Normal 0.70-1.30 [facility] Comment on above: Performed By: #### L [id number] ####[facility] ([facility])[address] [place] [address] GLOMERULAR FILTRATION RATE ML/MIN/1.73 SQ M.PREDICTED 74.5 mL/min/1.73m*2 Normal >60.[address] [facility] Comment on above: Result Comment: [facility]???s estimated glomerular filtration rate (eGFR) will [...] of individuals. Performed By: #### L [id number] ####[facility] [place] [address] Glucose [Mass/Vol] 202 mg/dL High 70-100 [facility] Comment on above: Performed By: #### L [id number] ####[facility] ([facility])[address] [place] [address] Potassium [Moles/Vol] 3.3 mmol/L Low 3.5-5.1 [facility] Comment on above: Performed By: #### L [id number] ####[facility] ([facility])[address] [place] [address] Sodium [Moles/Vol] 145 mmol/L Normal 136-145 [facility] Comment on above: Performed By: #### L [id number] ####[facility] ([facility])[address] [place] [address] Urea nitrogen [Mass/Vol] 38 mg/dL High 7-25 [facility] Comment on above: Performed By: #### L [id number] ####[facility] ([facility])[address] [place] [address] UREA NITROGEN/CREATININE (MASS RATIO) IN SER/PLAS 34.5 Normal [facility] Comment on above: Performed By: #### L [id number] ####[facility] ([facility])[address] [place] [address] CALCIUM, IONIZEDon CALCIUM IONIZED (MMOL/L) IN BLOOD Normal [facility] Comment on above: Result Comment: C^In calculable Performed By: #### C ALCIUM, IONIZED ####[facility]IRAT[facility] [id number] [place] [address] [place] CBC WITH AUTO DIFFERENTIALon 08-16-2024 Erythrocyte distribution width (RBC) [Ratio] 15.1 % High 11.5-15.0 [facility] Comment on above: Performed By: #### L [id number] ####[facility] [place] [address] ERYTHROCYTE MEAN CORPUSCULAR HEMOGLOBIN CONCENTRATION (G/DL) BY AUTOMATED 30.9 g/dL Low 32.0-35.0 [facility] Comment on above: Performed By: #### L [id number] ####[facility] ([facility] [place] [address] Hematocrit (Bld) [Volume fraction] 52.1 % Normal 39.0-55.0 [facility] Comment on above: Performed By: #### L [id number] ####[facility] ([facility])[address] [place] [address] Hemoglobin (Bld) [Mass/Vol] 16.1 g/dL Normal 13.0-17.0 [facility] Comment on above: Performed By: #### L [id number] ####[facility] ([facility])[address] [place] [address] MCH (RBC) [Entitic mass] 29.4 pg Normal 27.0-33.0 [facility] Comment on above: Performed By: #### L [id number] ####[facility] ([facility])[address] [place] [address] MCV (RBC) [Entitic vol] 95.1 fL Normal 82.0-98.0 [facility] Comment on above: Performed By: #### L [id number] ####[facility] ([facility])[address] [place] [address] NRBC (PER 100 WBCS) BY AUTOMATED COUNT 0.0 % Normal 0 [facility] Comment on above: Performed By: #### L [id number] ####[facility] ([facility])[address] [place] [address] PLATELETS (10*3/UL) IN BLOOD AUTOMATED COUNT 243 10*3/uL Normal 150-400 [facility] Comment on above: Performed By: #### L [id number] ####[facility] ([facility])[address] [place] [address] RBC (Bld) [#/Vol] 5.48 10*6/uL Normal 4.20-5.70 [facility] Comment on above: Performed By: #### L [id number] ####[facility] ([facility])[address] [place] [address] WBC (Bld) [#/Vol] 9.57 10*3/uL Normal 4.00-10.60 [facility] Comment on above: Performed By: #### L [id number] ####[facility] ([facility])[address] [place] [address] CONSULTon 08-16-2024 CONSULT Normal [facility] CONSULT Normal [facility] CTA CHEST W IV CONTRASTon CTA CHEST W IV CONTRAST Invalid Interpretation Code [facility] MAGNESIUMon 08-16-2024 Magnesium [Mass/Vol] 1.9 mg/dL Normal 1.9-2.7 [facility] Comment on above: Performed By: #### L [id number] ####[facility] ([facility])[address] [place] [address] Magnesium [Mass/Vol] 1.7 mg/dL Low 1.9-2.7 [facility] Comment on above: Performed By: #### L [id number] ####[facility] ([facility])[address] [place] [address] MANUAL DIFFERENTIALon 2024 BASOPHILS (10*3/UL) IN BLOOD BY CALCULATION 0.02 10*3/uL Normal 0.00-0.20 [facility] Comment on above: Performed By: #### L [id number] ####[facility] ([facility])[address] [place] [address] BASOPHILS/100 LEUKOCYTES IN BLOOD BY AUTOMATED COUNT 0.2 % Normal 0.0-1.0 [facility] Comment on above: Performed By: #### L [id number] ####[facility] ([facility])[address] [place] [address] EOSINOPHILS (10*3/UL) IN BLOOD BY CALCULATION 0.10 10*3/uL Normal 0.00-0.50 [facility] Comment on above: Performed By: #### L [id number] ####[facility] ([facility])[address] [place] [address] EOSINOPHILS/100 LEUKOCYTES IN BLOOD BY AUTOMATED COUNT 1.0 % Normal 0.0-6.0 [facility] Comment on above: Performed By: #### L [id number] ####[facility] ([facility])[address] [place] [address] IMMATURE GRANULOCYTES (10*3/UL) IN BLOOD BY CALCULATION 0.06 10*3/uL Normal 0.00-0.20 [facility] Comment on above: Performed By: #### L [id number] ####[facility] ([facility])[address] [place] [address] IMMATURE GRANULOCYTES/100 LEUKOCYTES IN BLOOD BY AUTOMATED COUNT 0.6 % Normal 0.0-1.0 [facility] Comment on above: Performed By: #### L [id number] ####[facility] ([facility])[address] [place] [address] LYMPHOCYTES (10*3/UL) IN BLOOD BY CALCULATION 0.73 10*3/uL Low 1.20-4.00 [facility] Comment on above: Performed By: #### L [id number] ####[facility] ([facility])[address] [place] [address] LYMPHOCYTES/100 LEUKOCYTES IN BLOOD BY AUTOMATED COUNT 7.6 % Low 20.0-45.0 [facility] Comment on above: Performed By: #### L [id number] ####[facility] ([facility])[address] [place] [address] MONOCYTES (10*3/UL) IN BLOOD BY CALCUATION 1.52 10*3/uL High 0.10-1.[address] [facility] Comment on above: Performed By: #### L [id number] ####[facility] ([facility])[address] [place] [address] MONOCYTES/100 LEUKOCYTES IN BLOOD BY AUTOMATED COUNT 15.9 % High 5.0-12.0 [facility] Comment on above: Performed By: #### L [id number] ####[facility] ([facility])[address] [place] [address] NEUTROPHILS (10*3/UL) IN BLOOD BY CALCULATION 7.1 10*3/uL Normal 1.6-7.6 [facility] Comment on above: Performed By: #### L [id number] ####[facility] ([facility])[address] [place] [address] NEUTROPHILS/100 LEUKOCYTES IN BLOOD BY AUTOMATED COUNT 74.7 % High 40.0-72.0 [facility] Comment on above: Performed By: #### L [id number] ####[facility] ([facility])[address] [place] [address] PHOSPHORUSon 08-16-2024 Magnesium [Mass/Vol] 3.8 mg/dL Normal 2.5-5.0 [facility] Comment on above: Performed By: #### L [id number] ####[facility] ([facility])[address] [place] [address] Magnesium [Mass/Vol] 1.8 mg/dL Low 2.5-5.0 [facility] Comment on above: Performed By: #### L [id number] ####[facility] ([facility])[address] [place] [address] POCT GLUCOSE METER UNSOLICIT ED RESULTSon 08-16-2024 Glucose [Mass/Vol] 189 mg/dL High 70-105 [facility] Comment on above: Order Comment: Waive d Testing in the ED is performed under the ED CLIA certificate #[id number]. Result Comment: [email or web address] es Performed By: #### L [id number] ####[facility] ([facility])[address] [place] [address] Glucose [Mass/Vol] 205 mg/dL High 70-105 [facility] Comment on above: Order Comment: Waive d Testing in the ED is performed under the ED CLIA certificate #[id number]. Result Comment: [email or web address] l Performed By: #### L [id number] ####[facility] ([facility])[address] [place] [address] Glucose [Mass/Vol] 200 mg/dL High 70-105 [facility] Comment on above: Order Comment: Waive d Testing in the ED is performed under the ED CLIA certificate #[id number]. Result Comment: [email or web address] Performed By: #### L [id number] ####[facility] ([facility])[address] [place] [address] Glucose [Mass/Vol] 207 mg/dL High 70-105 [facility] Comment on above: Order Comment: Waive d Testing in the ED is performed under the ED CLIA certificate #[id number]. Result Comment: [email or web address] er Performed By: #### L [id number] ####[facility] ([facility])[address] [place] [address] POTASSIUMon 08-16-2024 Potassium [Moles/Vol] 3.3 mmol/L Low 3.5-5.1 [facility] Comment on above: Performed By: #### L [id number] ####[facility] ([facility])[address] [place] [address] Potassium [Moles/Vol] 3.5 mmol/L Normal 3.5-5.1 [facility] Comment on above: Performed By: #### L [id number] ####[facility] ([facility])[address] [place] [address] POTASSIUM, WHOLE BLOODon Potassium [Moles/Vol] 3.5 mmol/L Normal 3.5-5.1 [facility] Comment on above: Performed By: #### P OTASSIUM, WHOLE BLOOD ####[facility] RESPIRATORY [id number] [place] [address] [place] SODIUM, WHOLE BLOODon 2024 SODIUM, WHOLE BLOOD Normal [facility] Comment on above: Result Comment: C^In calculable Performed By: #### S ODIUM, WHOLE BLOOD ####[facility] RESPIRATORY [id number] [place] [address] [place] TRIGLYCERIDESon 08-16-2024 FASTING? Unknown Normal [facility] Comment on above: Performed By: #### L [id number] ####[facility] HOSPITAL LAB (BEAKER)[address] [place] [address] Magnesium [Mass/Vol] 243 mg/dL High 40-149 [facility] Comment on above: Result Comment: TRIG LYCERIDE REFERENCE RANGE:20 YEARS AND OLDER CARDIOVASCULAR RISKLESS THAN 150 mg/dL LOW [id number] TO 199 mg/dL BORDERLINE [id number] mg/dL AND GREATER HIGH RISK Performed By: #### L [id number] ####[facility] (BEAKER)[address] [place] [address] 30on 08-15-2024 30 Normal [facility] 30 Normal [facility] BLOOD CULTUREon 08-15-2024 Bacteria identified Cx Nom (Bld) No growth at [address] [facility] Comment on above: Order Comment: From a different site than #1. Performed By: #### L [id number] ####[facility] (BEAKER)[address] [place] [address] Basophils Auto (Bld) [#/Vol] on 08-15-2024 Basophils (Bld) [#/Vol] Automated basophil count 0.0-0.1 [facility] Basophils/100 WBC Auto (Bld) on 08-15-2024 Basophils/100 WBC (Bld) Automated basophil % Low 0.2-2.0 [facility] CALCIUM, IONIZEDon CALCIUM IONIZED (MMOL/L) IN BLOOD 1.23 mmol/L Normal 1.15-1.33 [facility] Comment on above: Performed By: #### C ALCIUM, IONIZED ####[facility] RESPIRATORY [id number] [place] [address] [place] CBC WITH AUTO DIFFERENTIALon 08-15-2024 Basophils (Bld) [#/Vol] 0.01 10*3/uL Normal 0.00-0.20 [facility] Comment on above: Performed By: #### L [id number] ####[facility] (BEAKER)[address] [place] [address] Basophils/100 WBC (Bld) 0.1 % Normal 0.0-1.0 [facility] Comment on above: Performed By: #### L [id number] ####[facility] (BEAKER)[address] [place] [address] Eosinophils (Bld) [#/Vol] 0.01 10*3/uL Normal 0.00-0.50 [facility] Comment on above: Performed By: #### L [id number] ####[facility] [place] [address] Eosinophils/100 WBC (Bld) 0.1 % Normal 0.0-6.0 [facility] Comment on above: Performed By: #### L [id number] ####[facility] ([facility])[address] [place] [address] Erythrocyte distribution width (RBC) [Ratio] 15.2 % High 11.5-15.0 [facility] Comment on above: Performed By: #### L [id number] ####[facility] [place] [address] ERYTHROCYTE MEAN CORPUSCULAR HEMOGLOBIN CONCENTRATION (G/DL) BY AUTOMATED 33.8 g/dL Normal 32.0-35.0 [facility] Comment on above: Performed By: #### L [id number] ####[facility] ([facility] [place] [address] Hematocrit (Bld) [Volume fraction] 47.1 % Normal 39.0-55.0 [facility] Comment on above: Performed By: #### L [id number] ####[facility] (BEAKER)[address] [place] [address] Hemoglobin (Bld) [Mass/Vol] 15.9 g/dL Normal 13.0-17.0 [facility] Comment on above: Performed By: #### L [id number] ####[facility] (BEAKER)[address] [place] [address] Immature granulocytes (Bld) [#/Vol] 0.05 10*3/uL Normal 0.00-0.20 [facility] Comment on above: Performed By: #### L [id number] ####[facility] ([facility])[address] [facility] [place] [address] Immature granulocytes/100 WBC (Bld) 0.7 % Normal 0.0-1.0 [facility] Comment on above: Performed By: #### L [id number] ####[facility] ([facility])[address] [place] [address] Lymphocytes (Bld) [#/Vol] 0.54 10*3/uL Low 1.20-4.00 [facility] Comment on above: Performed By: #### L [id number] ####[facility] ([facility])[address] [place] [address] Lymphocytes/100 WBC (Bld) 7.2 % Low 20.0-45.0 [facility] Comment on above: Performed By: #### L [id number] ####[facility] ([facility])[address] [place] [address] MCH (RBC) [Entitic mass] 31.8 pg Normal 27.0-33.0 [facility] Comment on above: Performed By: #### L [id number] ####[facility] ([facility])[address] [place] [address] MCV (RBC) [Entitic vol] 94.2 fL Normal 82.0-98.0 [facility] Comment on above: Performed By: #### L [id number] ####[facility] ([facility] [facility] [place] [address] Monocytes (Bld) [#/Vol] 1.23 10*3/uL High 0.10-1.00 [facility] Comment on above: Performed By: #### L [id number] ####[facility] ([facility] [place] [address] Monocytes/100 WBC (Bld) 16.3 % High 5.0-12.0 [facility] Comment on above: Performed By: #### L [id number] ####[facility] (BEAKER)[address] [place] [address] Neutrophils (Bld) [#/Vol] 5.70 10*3/uL Normal 1.60-7.60 [facility] Comment on above: Performed By: #### L [id number] ####[facility] (BEAKER)[address] [place] [address] Neutrophils/100 WBC (Bld) 75.6 % High 40.0-72.0 [facility] Comment on above: Performed By: #### L [id number] ####[facility] (BEAKER)[address] [place] [address] NRBC (PER 100 WBCS) BY AUTOMATED COUNT 0.3 % High 0 [facility] Comment on above: Performed By: #### L [id number] ####[facility] ([facility])[address] [place] [address] PLATELETS (10*3/UL) IN BLOOD AUTOMATED COUNT 237 10*3/uL Normal 150-400 [facility] Comment on above: Performed By: #### L [id number] ####[facility] (BEAKER)[address] [place], [place] [address] RBC (Bld) [#/Vol] 5.00 10*6/uL Normal 4.20-5.70 [facility] Comment on above: Performed By: #### L [id number] ####[facility] (BEAKER)[address] [place], [place] [address] WBC (Bld) [#/Vol] 7.54 10*3/uL Normal 4.00-10.60 [facility] Comment on above: Performed By: #### L [id number] ####[facility] (BEAKER)[address] [place] [address] COMPREHENSIVE METABOLIC PANE Kris 08-15-2024 Albumin [Mass/Vol] 2.9 g/dL Low 3.5-5.7 [facility] Comment on above: Performed By: #### L [id number] ####[facility] (BEAKER)[address] [place] [address] ALP [Catalytic activity/Vol] 58 U/L Normal 34-104 [facility] Comment on above: Performed By: #### L [id number] ####[facility] ([facility] [place] [address] ALT [Catalytic activity/Vol] 21 U/L Normal 7-52 [facility] Comment on above: Performed By: #### L [id number] ####[facility] ([facility])[address] [place] [address] Anion gap [Moles/Vol] 13 mmol/L Normal 7-20 [facility] Comment on above: Performed By: #### L [id number] ####[facility] ([facility])[address] [place] [address] AST [Catalytic activity/Vol] 29 U/L Normal 13-39 [facility] Comment on above: Performed By: #### L [id number] ####[facility] ([facility])[address] [place] [address] Bilirubin [Mass/Vol] 1.0 mg/dL Normal 0.3-1.0 [facility] Comment on above: Performed By: #### L [id number] ####[facility] ([facility])[address] [place] [address] Calcium [Mass/Vol] 8.2 mg/dL Low 8.6-10.3 [facility] Comment on above: Performed By: #### L [id number] ####[facility] ([facility] [place] [address] Chloride [Moles/Vol] 90 mmol/L Low 98-107 [facility] Comment on above: Performed By: #### L [id number] ####[facility] (BEAKER)[address] [place] [address] CO2 [Moles/Vol] 32 mmol/L High 21-31 [facility] Comment on above: Performed By: #### L [id number] ####[facility] ([facility])[address] [place] [address] Creatinine [Mass/Vol] 1.17 mg/dL Normal 0.70-1.30 [facility] Comment on above: Performed By: #### L [id number] ####[facility] ([facility])[address] [place] [address] GLOMERULAR FILTRATION RATE ML/MIN/1.73 SQ M.PREDICTED 69.2 mL/min/1.73m*2 Normal >60.[address] [facility] Comment on above: Result Comment: [facility]???s estimated glomerular filtration rate (eGFR) will [...] of individuals. Performed By: #### L [id number] ####[facility] ([facility])[address] [place] [address] Glucose [Mass/Vol] 219 mg/dL High 70-100 [facility] Comment on above: Performed By: #### L [id number] ####[facility] ([facility])[address] [place] [address] Potassium [Moles/Vol] 4.0 mmol/L Normal 3.5-5.1 [facility] Comment on above: Performed By: #### L [id number] ####[facility] ([facility])[address] [place] [address] Protein [Mass/Vol] 5.5 g/dL Low 6.0-8.3 [facility] Comment on above: Performed By: #### L [id number] ####[facility] ([facility])[address] [place] [address] Sodium [Moles/Vol] 131 mmol/L Low 136-145 [facility] Comment on above: Performed By: #### L [id number] ####[facility] (BEAKER)[address] [place] [address] Urea nitrogen [Mass/Vol] 42 mg/dL High 7-25 [facility] Comment on above: Performed By: #### L [id number] ####[facility] (BEAKER)[address] [place] [address] UREA NITROGEN/CREATININE (MASS RATIO) IN SER/PLAS 35.9 Normal [facility] Comment on above: Performed By: #### L [id number] ####[facility] (BEAKER)[address] [place] [address] Eosinophils/100 WBC Auto (Bl d)on 08-15-2024 Eosinophils/100 WBC (Bld) Automated eosinophil % Low 0.9-7.0 [facility] Erythrocyte distribution wid th Auto (RBC) [Ratio]on 08-15-2024 Erythrocyte distribution width (RBC) [Ratio] Erythrocyte distribution width [Ratio] by Automated count High 11.0-15.0 [facility] Estimated glomerular filtrat ion rate (GFR) non- Americanon 08-15-2024 GFR/1.73 sq M.predicted among non-blacks MDRD (S/P/Bld) [Vol rate/Area] Estimated glomerular filtration rate (GFR) non- Low >=60 mL/min/1.73m 2 [facility] Globulin Calc (S) [Mass/Vol] on 08-15-2024 Globulin (S) [Mass/Vol] Serum globulin measurement by calculation (mass/volume) [facility] HEMOGLOBIN A1Con 08-15-2024 Glucose [Mass/Vol] 189 mg/dL Normal [facility] Comment on above: Performed By: #### L [id number] ####[facility] (BEAKER)[address] [place] [address] HbA1c (Bld) [Mass fraction] 8.2 % High 4.0-6.0 [facility] Comment on above: Performed By: #### L [id number] ####[facility] (BEAKER)[address] [place] [address] HPon 08-15-2024 HP Normal [facility] Hematocrit Auto (Bld) [Volum e fraction]on 08-15-2024 Hematocrit (Bld) [Volume fraction] Hematocrit [Volume Fraction] of Blood by Automated count 42.0-54.0 [facility] Hemoglobin [Mass/volume] in Bloodon 08-15-2024 Hemoglobin (Bld) [Mass/Vol] Hemoglobin [Mass/volume] in Blood 14.0-18.0 [facility] LIPASEon 08-15-2024 LIPASE (U/L) IN SER/PLAS 28 U/L Normal 11-82 [facility] Comment on above: Result Comment: M-CH EMISTRY SPECIMEN MODERATELY HEMOLYZED RESULTS MAY NOT BE ACCURATE Performed By: #### L [id number] ####[facility] (BEAKER)[address] [place] [address] Laboratory - Chemistry and C hemistry - challengeon 08-15-2024 HCO3 (Bld) [Moles/Vol] 34.7 mmol/L High 22.0-26.0 [facility] Albumin [Mass/Vol] 2.6 g/dL Low 3.4-5.0 [facility] ALP [Catalytic activity/Vol] 81 U/L 46-116 [facility] ALT [Catalytic activity/Vol] 37 U/L 16-63 [facility] AST [Catalytic activity/Vol] 28 U/L 15-37 [facility] Bilirubin [Mass/Vol] 1.2 mg/dL High 0.2-1.0 [facility] Calcium [Mass/Vol] 9.2 mg/dL 8.5-10.1 [facility] Chloride [Moles/Vol] 101 mmol/L 98-107 [facility] CO2 [Moles/Vol] 35.4 mmol/L High 21.0-32.0 [facility] Creatinine [Mass/Vol] 1.66 mg/dL High 0.70-1.30 [facility] GFR/1.73 sq M.predicted MDRD (S/P/Bld) [Vol rate/Area] 51 mL/min/{1.73_m2} Low >=60 mL/min/1.73m 2 [facility] Glucose [Mass/Vol] 268 mg/dL High 74-106 [facility] Potassium [Moles/Vol] 3.8 mmol/L 3.5-5.1 [facility] Protein [Mass/Vol] 6.3 g/dL Low 6.4-8.2 [facility] Sodium [Moles/Vol] 143 mmol/L 136-145 [facility] Urea nitrogen [Mass/Vol] 52.0 mg/dL High 7.0-18.0 [facility] Urea nitrogen/Creatinine [Mass ratio] 31.3 mg/mg [facility] Laboratory - Hematology and Cell countson 08-15-2024 Immature granulocytes/100 WBC (Bld) 0.8 % High 0.0-0.5 [facility] Leukocytes [#/volume] correc beatris for nucleated erythrocytes in Blood by Automated counon 08-15-2024 WBC corrected for nucl RBC Auto (Bld) [#/Vol] Leukocytes [#/volume] corrected for nucleated erythrocytes in Blood by Automated coun 4.0-11.0 [facility] Lymphocytes Auto (Bld) [#/Vo l]on 08-15-2024 Lymphocytes (Bld) [#/Vol] Lymphocytes [#/volume] in Blood by Automated count Low 1.2-3.8 [facility] Lymphocytes/100 WBC Auto (Bl d)on 08-15-2024 Lymphocytes/100 WBC (Bld) Lymphocytes/100 leukocytes in Blood by Automated count Low 20.5-60.0 [facility] MAGNESIUMon 08-15-2024 Magnesium [Mass/Vol] 1.6 mg/dL Low 1.9-2.7 [facility] Comment on above: Performed By: #### L [id number] ####[facility] (BEAKER)[address] [place] [address] MCH Auto (RBC) [Entitic mass ]on 08-15-2024 MCH (RBC) [Entitic mass] MCH [Entitic mass] by Automated count 25.9-34.0 [facility] MCHC Auto (RBC) [Mass/Vol]on 08-15-2024 MCHC (RBC) [Mass/Vol] MCHC [Mass/volume] by Automated count 29.9-35.2 [facility] MCV Auto (RBC) [Entitic vol] on 08-15-2024 MCV (RBC) [Entitic vol] MCV [Entitic volume] by Automated count 80.0-94.0 [facility] MRSA/MSSA DNA NASALon 2024 MRSA DNA Negative Normal Negative [facility] Comment on above: Order Comment: Testi [...] preclude nasal colonization. Performed By: #### L [id number] ####[facility] (BEAKER)[address] [place] [address] MSSA DNA Negative Normal Negative [facility] Comment on above: Order Comment: Testi [...] preclude nasal colonization. Performed By: #### L [id number] ####[facility] (BEAKER)[address] [place] [address] Monocytes Auto (Bld) [#/Vol] on 08-15-2024 Monocytes (Bld) [#/Vol] Automated blood monocyte count 0.3-0.8 [facility] Monocytes/100 WBC Auto (Bld) on 08-15-2024 Monocytes/100 WBC (Bld) Automated monocyte % 1.7-12.0 [facility] Neutrophils Auto (Bld) [#/Vo l]on 08-15-2024 Neutrophils (Bld) [#/Vol] Neutrophils [#/volume] in Blood by Automated count 1.4-6.5 [facility] Neutrophils/100 WBC Auto (Bl d)on 08-15-2024 Neutrophils/100 WBC (Bld) Automated neutrophil % High 43.0-75.0 [facility] No Panel Informationon 08-15 Avinash Test Positive POSITIVE [facility] Arterial Blood Base Excess 11.0 mmol/L High <2.0-2.0 [facility] Arterial Blood Oxygen Saturation 97.0 % [facility] Arterial Blood Partial Pressure CO2 47.8 mm[Hg] High 35.0-45.0 [facility] Arterial Blood Partial Pressure O2 81.0 mm[Hg] 80.0-100.0 [facility] Arterial Blood pH 7.469 High 7.350-7.450 [facility] Blood Gas PEEP 8 [facility] Blood Gas Sample Site RIGHT RADIAL F [facility] Blood Gas Set Respiration Rate 22 [facility] Blood Gas Tidal Volume [address] [facility] Blood Gas Ventilator Mode AC/VC [facility] FiO2 90 % [facility] Oxygen Delivery Device VENT [facility] Reference Lab Test #2 Result 13.8 [facility] Eosinophils # (Auto) 0.0 10 3/uL 0.0-0.7 [facility] Immature Granulocyte # (Auto) 0.06 10 3/uL High 0.00-0.03 [facility] PHOSPHORUSon 08-15-2024 Magnesium [Mass/Vol] 2.7 mg/dL Normal 2.5-5.0 [facility] Comment on above: Performed By: #### L [id number] ####[facility] LAB (BEAKER)[address] [place] [address] POCT GLUCOSE METER UNSOLICIT ED RESULTSon 08-15-2024 Glucose [Mass/Vol] 249 mg/dL High 70-105 [facility] Comment on above: Order Comment: Waive d Testing in the ED is performed under the ED CLIA certificate #[id number]. Result Comment: oyod er Performed By: #### L [id number] ####[facility] (BEAKER)[address] [place] [address] Glucose [Mass/Vol] 217 mg/dL High 70-105 [facility] Comment on above: Order Comment: Waive d Testing in the ED is performed under the ED CLIA certificate #[id number]. Result Comment: [email or web address] Performed By: #### L [id number] ####[facility] (BEAKER)[address] [place] [address] Glucose [Mass/Vol] 233 mg/dL High 70-105 [facility] Comment on above: Order Comment: Waive d Testing in the ED is performed under the ED CLIA certificate #[id number]. Result Comment: [email or web address] Performed By: #### L [id number] ####[facility] (BEAKER)[address] [place] [address] POTASSIUM, WHOLE BLOODon Potassium [Moles/Vol] 3.4 mmol/L Low 3.5-5.1 [facility] Comment on above: Performed By: #### P OTASSIUM, WHOLE BLOOD ####[facility] RESPIRATORY [id number] [place] [address] [facility] Platelet mean volume Auto (B ld) [Entitic vol]on 08-15-2024 Platelet mean volume (Bld) [Entitic vol] Platelet mean volume [Entitic volume] in Blood by Automated count 9.5-13.5 [facility] Platelets Auto (Bld) [#/Vol] on 08-15-2024 Platelets (Bld) [#/Vol] Platelets [#/volume] in Blood by Automated count 150-450 [facility] RBC Auto (Bld) [#/Vol]on RBC (Bld) [#/Vol] Erythrocytes [#/volume] in Blood by Automated count 4.70-6.10 [facility] SODIUM, WHOLE BLOODon 2024 SODIUM, WHOLE BLOOD 136 Normal 136-145 [facility] Comment on above: Performed By: #### S ODIUM, WHOLE BLOOD ####[facility] RESPIRATORY [id number] [place] [address] [facility] Serum or plasma albumin/glob ulin mass ratioon 08-15-2024 Albumin/Globulin [Mass ratio] Serum or plasma albumin/globulin mass ratio [facility] Serum or plasma anion gap de terminationon 08-15-2024 Anion gap [Moles/Vol] Serum or plasma an ion gap determination [facility] TRIGLYCERIDESon 08-15-2024 FASTING? unknown Normal [facility] Comment on above: Order Comment: Monit or triglycerides while patient is on propofol. Consult Nutrition if greater than 500 mg/dL. Performed By: #### L [id number] ####[facility] ([facility])[address] [place] [address] Magnesium [Mass/Vol] 3920 mg/dL High 40-149 [facility] Comment on above: Order Comment: Monit or triglycerides while patient is on propofol. Consult Nutrition if greater than 500 mg/dL. Result Comment: TRIG LYCERIDE REFERENCE RANGE:20 YEARS AND OLDER CARDIOVASCULAR RISKLESS THAN 150 mg/dL LOW [id number] TO 199 mg/dL BORDERLINE [id number] mg/dL AND GREATER HIGH RISK Performed By: #### L [id number] ####[facility] ([facility])[address] [place] [address] TROPONIN Ion 08-15-2024 Troponin I.cardiac [Mass/Vol] 0.04 ng/mL Normal 0.00-0.04 [facility] Comment on above: Performed By: #### L [id number] ####[facility] ([facility])[address] [place] [address] URINALYSIS WITH MICROSCOPICo n 08-15-2024 BILIRUBIN, TOTAL PRESENCE IN URINE Negative Normal Negative [facility] Comment on above: Performed By: #### L [id number] ####[facility] ([facility])[address] [place] [address] Clarity (U) Clear Normal Clear [facility] Comment on above: Performed By: #### L [id number] ####[facility] ([facility])[address] [place] [address] Color (U) Colorless Normal Colorless, Yellow, Light-Yellow [facility] Comment on above: Performed By: #### L [id number] ####[facility] (BEAKER)[address] [place] [address] GLUCOSE (MG/DL) IN URINE Normal Normal Normal [facility] Comment on above: Performed By: #### L [id number] ####[facility] (BEAKER)[address] [place] [address] HEMOGLOBIN PRESENCE IN URINE Small Abnormal Negative [facility] Comment on above: Performed By: #### L [id number] ####[facility] (BEAKER)[address] [place] [address] Ketones Ql (U) Negative Normal Negative [facility] Comment on above: Performed By: #### L [id number] ####[facility] ([facility])[address] [place] [address] LEUKOCYTE ESTERASE PRESENCE IN URINE BY TEST STRIP Negative Normal Negative [facility] Comment on above: Performed By: #### L [id number] ####[facility] ([facility])[address] [place] [address] MUCUS (#/LPF) IN URINE SEDIMENT Occasional Normal None Seen, Occasional, Few [facility] Comment on above: Performed By: #### L [id number] ####[facility] (BEAKER)[address] [place] [address] NITRITE PRESENCE IN URINE Negative Normal Negative [facility] Comment on above: Performed By: #### L [id number] ####[facility] (BEAKER)[address] [place] [address] pH (U) 5.5 [pH] Normal 5.0-8.0 [facility] Comment on above: Performed By: #### L [id number] ####[facility] (BEAKER)[address] [place] [address] Protein (U) [Mass/Vol] Negative Normal [facility] Comment on above: Performed By: #### L [id number] ####[facility] (BEAKER)[address] [place] [address] RBC (#/HPF) IN URINE SEDIMENT 11-20 Abnormal None Seen, 0-2 [facility] Comment on above: Performed By: #### L [id number] ####[facility] (BEAKER)[address] [place] [address] Specific gravity (U) [Rel density] 1.011 Normal 1.010-1.030 [facility] Comment on above: Performed By: #### L [id number] ####[facility] [place] [address] SQUAMOUS EPITHELIAL CELLS (#/LPF) IN URINE SEDIMENT None Seen Normal None Seen, Occasional, Few [facility] Comment on above: Performed By: #### L [id number] ####[facility] ([facility]AKER)[address] [place] [address] UROBILINOGEN (MG/DL) IN URINE Normal Normal Normal [facility] Comment on above: Performed By: #### L [id number] ####[facility] ([facility])[address] [place] [address] WBC (LEUKOCYTE) (#/HPF) IN URINE SEDIMENT 3-5 Abnormal None Seen, 0-2 [facility] Comment on above: Performed By: #### L [id number] ####[facility] [facility] ([facility] [place] [address] Basophils Auto (Bld) [#/Vol] on 08-14-2024 Basophils (Bld) [#/Vol] Automated basophil count 0.0-0.1 [facility] Basophils/100 WBC Auto (Bld) on 08-14-2024 Basophils/100 WBC (Bld) Automated basophil % 0.2-2.0 [facility] Eosinophils/100 WBC Auto (Bl d)on 08-14-2024 Eosinophils/100 WBC (Bld) Automated eosinophil % Low 0.9-7.0 [facility] Erythrocyte distribution wid th Auto (RBC) [Ratio]on 08-14-2024 Erythrocyte distribution width (RBC) [Ratio] Erythrocyte distribution width [Ratio] by Automated count High 11.0-15.0 [facility] Estimated glomerular filtrat ion rate (GFR) non- Americanon 08-14-2024 GFR/1.73 sq M.predicted among non-blacks MDRD (S/P/Bld) [Vol rate/Area] Estimated glomerular filtration rate (GFR) non- Low >=60 mL/min/1.73m 2 [facility] Globulin Calc (S) [Mass/Vol] on 08-14-2024 Globulin (S) [Mass/Vol] Serum globulin measurement by calculation (mass/volume) [facility] Hematocrit Auto (Bld) [Volum e fraction]on 08-14-2024 Hematocrit (Bld) [Volume fraction] Hematocrit [Volume Fraction] of Blood by Automated count 42.0-54.0 [facility] Hemoglobin [Mass/volume] in Bloodon 08-14-2024 Hemoglobin (Bld) [Mass/Vol] Hemoglobin [Mass/volume] in Blood 14.0-18.0 [facility] Laboratory - Chemistry and C hemistry - challengeon 08-14-2024 HCO3 (Bld) [Moles/Vol] 30.8 mmol/L High 22.0-26.0 [facility] Albumin [Mass/Vol] 2.4 g/dL Low 3.4-5.0 [facility] ALP [Catalytic activity/Vol] 82 U/L 46-116 [facility] ALT [Catalytic activity/Vol] 39 U/L 16-63 [facility] AST [Catalytic activity/Vol] 24 U/L 15-37 [facility] Bilirubin [Mass/Vol] 1.1 mg/dL High 0.2-1.0 [facility] Calcium [Mass/Vol] 8.6 mg/dL 8.5-10.1 [facility] Chloride [Moles/Vol] 102 mmol/L 98-107 [facility] CO2 [Moles/Vol] 32.4 mmol/L High 21.0-32.0 [facility] Creatinine [Mass/Vol] 1.64 mg/dL High 0.70-1.30 [facility] GFR/1.73 sq M.predicted MDRD (S/P/Bld) [Vol rate/Area] 51 mL/min/{1.73_m2} Low >=60 mL/min/1.73m 2 [facility] Glucose [Mass/Vol] 194 mg/dL High 74-106 [facility] Potassium [Moles/Vol] 3.9 mmol/L 3.5-5.1 [facility] Protein [Mass/Vol] 5.8 g/dL Low 6.4-8.2 [facility] Sodium [Moles/Vol] 140 mmol/L 136-145 [facility] Urea nitrogen [Mass/Vol] 54.0 mg/dL High 7.0-18.0 [facility] Urea nitrogen/Creatinine [Mass ratio] 32.9 mg/mg [facility] Laboratory - Hematology and Cell countson 08-14-2024 Immature granulocytes/100 WBC (Bld) 0.8 % High 0.0-0.5 [facility] Leukocytes [#/volume] correc beatris for nucleated erythrocytes in Blood by Automated counon 08-14-2024 WBC corrected for nucl RBC Auto (Bld) [#/Vol] Leukocytes [#/volume] corrected for nucleated erythrocytes in Blood by Automated coun 4.0-11.0 [facility] Lymphocytes Auto (Bld) [#/Vo l]on 08-14-2024 Lymphocytes (Bld) [#/Vol] Lymphocytes [#/volume] in Blood by Automated count Low 1.2-3.8 [facility] Lymphocytes/100 WBC Auto (Bl d)on 08-14-2024 Lymphocytes/100 WBC (Bld) Lymphocytes/100 leukocytes in Blood by Automated count Low 20.5-60.0 [facility] MCH Auto (RBC) [Entitic mass ]on 08-14-2024 MCH (RBC) [Entitic mass] MCH [Entitic mass] by Automated count 25.9-34.0 [facility] MCHC Auto (RBC) [Mass/Vol]on 08-14-2024 MCHC (RBC) [Mass/Vol] MCHC [Mass/volume] by Automated count 29.9-35.2 [facility] MCV Auto (RBC) [Entitic vol] on 08-14-2024 MCV (RBC) [Entitic vol] MCV [Entitic volume] by Automated count High 80.0-94.0 [facility] Monocytes Auto (Bld) [#/Vol] on 08-14-2024 Monocytes (Bld) [#/Vol] Automated blood monocyte count 0.3-0.8 [facility] Monocytes/100 WBC Auto (Bld) on 08-14-2024 Monocytes/100 WBC (Bld) Automated monocyte % 1.7-12.0 [facility] Neutrophils Auto (Bld) [#/Vo l]on 08-14-2024 Neutrophils (Bld) [#/Vol] Neutrophils [#/volume] in Blood by Automated count 1.4-6.5 [facility] Neutrophils/100 WBC Auto (Bl d)on 08-14-2024 Neutrophils/100 WBC (Bld) Automated neutrophil % High 43.0-75.0 [facility] No Panel Informationon 08-14 Avinash Test Positive POSITIVE [facility] Arterial Blood Base Excess 6.2 mmol/L High <2.0-2.0 [facility] Arterial Blood Oxygen Saturation 93.3 % [facility] Arterial Blood Partial Pressure CO2 48.3 mm[Hg] High 35.0-45.0 [facility] Arterial Blood Partial Pressure O2 62.0 mm[Hg] Low 80.0-100.0 [facility] Arterial Blood pH 7.413 7.350-7.450 [facility] Blood Gas PEEP +8 [facility] Blood Gas Sample Site RIGHT RADIAL F [facility] Blood Gas Set Respiration Rate 22 [facility] Blood Gas Tidal Volume [address] [facility] Blood Gas Ventilator Mode AC [facility] FiO2 100 % [facility] Oxygen Delivery Device VENT Fi [facility] Eosinophils # (Auto) 0.0 10 3/uL 0.0-0.7 [facility] Immature Granulocyte # (Auto) 0.05 10 3/uL High 0.00-0.03 [facility] Platelet mean volume Auto (B ld) [Entitic vol]on 08-14-2024 Platelet mean volume (Bld) [Entitic vol] Platelet mean volume [Entitic volume] in Blood by Automated count 9.5-13.5 [facility] Platelets Auto (Bld) [#/Vol] on 08-14-2024 Platelets (Bld) [#/Vol] Platelets [#/volume] in Blood by Automated count 150-450 [facility] RBC Auto (Bld) [#/Vol]on RBC (Bld) [#/Vol] Erythrocytes [#/volume] in Blood by Automated count 4.70-6.10 [facility] Serum or plasma albumin/glob ulin mass ratioon 08-14-2024 Albumin/Globulin [Mass ratio] Serum or plasma albumin/globulin mass ratio [facility] Serum or plasma anion gap de terminationon 08-14-2024 Anion gap [Moles/Vol] Serum or plasma an ion gap determination [facility] URINE CULTURE, ROUTINEon Bacteria identified Cx Nom (U) Urine Culture, Routine [facility] Bacteria identified Cx Nom (U) No growth [facility] Bacteria identified Cx Nom (U) [facility] Bacteria identified Cx Nom (U) [address] [place] [address] [phone] [facility] Bacteria identified Cx Nom (U) [employer] Engineer: Tyron Saeed PhD, Phone: [phone] [facility] Basophils Auto (Bld) [#/Vol] on 04-08-2024 Basophils (Bld) [#/Vol] 0.1 10 3/uL 0.0-0.1 [facility] Basophils/100 WBC Auto (Bld) on 04-08-2024 Basophils/100 WBC (Bld) 0.4 % 0.2-2.0 [facility] Eosinophils/100 WBC Auto (Bl d)on 04-08-2024 Eosinophils/100 WBC (Bld) 1.7 % 0.9-7.0 [facility] Erythrocyte distribution wid th Auto (RBC) [Ratio]on 04-08-2024 Erythrocyte distribution width (RBC) [Ratio] 13.9 % 11.0-15.0 [facility] Estimated glomerular filtrat ion rate (GFR) non- Americanon 04-08-2024 GFR/1.73 sq M.predicted among non-blacks MDRD (S/P/Bld) [Vol rate/Area] mL/min/{1.73_m2} >=60 [facility] Hematocrit Auto (Bld) [Volum e fraction]on 04-08-2024 Hematocrit (Bld) [Volume fraction] 45.1 % 42.0-54.0 [facility] Hemoglobin [Mass/volume] in Bloodon 04-08-2024 Hemoglobin (Bld) [Mass/Vol] 14.7 g/dL 14.0-18.0 [facility] Kris 04-08-2024 L Specimen: [id number] Received: 04/09/24 Status: SOU Req Num: [id number] Spec Type: Surgical Subm Dr: Rc Curtis DPM, [place] Tissues: A Extremity - Amputation, Non-Traumatic (R FOREFOOT) B Extremity - Amputation, Non-Traumatic (R FIRST METATARSEL) Procedures: HE/5, Gross/Micro L5/2, Decalcification/2 Age/ Patient Sex Location Account Attending Physician Tyler Mckinney W 63/M LABELL [id number] Rc Curtis DPM, [place] SPEC NUM: [id number] RECD: 04/09/24 STATUS: [facility] REQ NUM: [id number] KATHIE: 04/08/[address]: Rc Curtis DPM, [place] ENTERED: 04/09/[address] [facility] DR: Ekta Heath SPEC TYPE: Surgical DEPT: ALEJANDRO JACOBS ENTERED BY: [id number] RECV BY: [id number] ORDERED: HE/5, Gross/Micro L5/2, Decalcification/2 ORDERED: HE/5, [...] of the ulcerated lesion reveals -------- Specimen: [id number] Received: 04/09/24 Status: TAMI Colon Num: [id number] Spec Type: Surgical Subm Dr: Rc Curtis,DPM, [place] Tissues: A Extremity - Amputation, Non-Traumatic (R FOREFOOT) B Extremity - Amputation, Non-Traumatic (R FIRST METATARSEL) Procedures: HE/5, Gross/Micro L5/2, Decalcification/2 -------- Patient: Tyler Mckinney [id number] (Continued) -------- Specimen: [id number] Received: 04/09/24 (Continued) Gross Description (Continued) Signed (signature on file) Genaro Zamora MD 04/19/24 1844 -------- Specimen: [id number] Received: 04/09/24 Status: TAMI Colon Num: [id number] Spec Type: Surgical Subm Dr: Rc Curtis,DPM, [place] Tissues: A Extremity - Amputation, Non-Traumatic (R FOREFOOT) B Extremity - Amputation, Non-Traumatic (R FIRST METATARSEL) Procedures: HE/5, Gross/Micro L5/2, Decalcification/2 -------- Patient: Tyler Mckinney [id number] (Continued) -------- Specimen: [id number] Received: 04/09/24 (Continued) Gross Description (Continued) exposed bone. The lesion is abutting the soft tissue margin. The resection margin of the metatarsals are inked first blue, second green, third yellow, fourth orange, fifth red. Rayon Winder sections are as follows: A1 soft tissue margin en face A2 first metatarsal bone margin en face, (submitted in decal before routine processing) A3 remaining metatarsal bone margins en face, (submitted in decal before routine processing) A4 account development representative section of the lesion with distal [...] performed supporting the above interpretation CPT Codes 76945 [id number] x2 -------- -------- Specimen: [id number] Received: 04/09/24 Status: TAMI Colon Num: [id number] Spec (more content not included)... Normal [facility] Laboratory - Chemistry and C hemistry - challengeon 04-08-2024 Calcium [Mass/Vol] 10.6 mg/dL High 8.5-10.1 [facility] Chloride [Moles/Vol] 98 mmol/L 98-107 [facility] CO2 [Moles/Vol] 34.6 mmol/L High 21.0-32.0 [facility] Creatinine [Mass/Vol] 1.03 mg/dL 0.70-1.30 [facility] GFR/1.73 sq M.predicted MDRD (S/P/Bld) [Vol rate/Area] mL/min/{1.73_m2} >=60 [facility] Glucose [Mass/Vol] 178 mg/dL High 74-106 [facility] Potassium [Moles/Vol] 4.4 mmol/L 3.5-5.1 [facility] Sodium [Moles/Vol] 135 mmol/L Low 136-145 [facility] Urea nitrogen [Mass/Vol] 16.0 mg/dL 7.0-18.0 [facility] Urea nitrogen/Creatinine [Mass ratio] 15.5 mg/mg [facility] Laboratory - Hematology and Cell countson 04-08-2024 Immature granulocytes/100 WBC (Bld) 1.1 % High 0.0-0.5 [facility] Leukocytes [#/volume] correc beatris for nucleated erythrocytes in Blood by Automated counon 04-08-2024 WBC corrected for nucl RBC Auto (Bld) [#/Vol] 13.3 10 3/uL High 4.0-11.0 [facility] Lymphocytes Auto (Bld) [#/Vo l]on 04-08-2024 Lymphocytes (Bld) [#/Vol] 1.7 10 3/uL 1.2-3.8 [facility] Lymphocytes/100 WBC Auto (Bl d)on 04-08-2024 Lymphocytes/100 WBC (Bld) 12.5 % Low 20.5-60.0 [facility] MCH Auto (RBC) [Entitic mass ]on 04-08-2024 MCH (RBC) [Entitic mass] 31.1 pg 25.9-34.0 [facility] MCHC Auto (RBC) [Mass/Vol]on 04-08-2024 MCHC (RBC) [Mass/Vol] 32.6 g/dL 29.9-35.2 [facility] MCV Auto (RBC) [Entitic vol] on 04-08-2024 MCV (RBC) [Entitic vol] 95.6 fL High 80.0-94.0 [facility] Monocytes Auto (Bld) [#/Vol] on 04-08-2024 Monocytes (Bld) [#/Vol] 1.0 10 3/uL High 0.3-0.8 [facility] Monocytes/100 WBC Auto (Bld) on 04-08-2024 Monocytes/100 WBC (Bld) 7.3 % 1.7-12.0 [facility] Neutrophils Auto (Bld) [#/Vo l]on 04-08-2024 Neutrophils (Bld) [#/Vol] 10.3 10 3/uL High 1.4-6.5 [facility] Neutrophils/100 WBC Auto (Bl d)on 04-08-2024 Neutrophils/100 WBC (Bld) 77.0 % High 43.0-75.0 [facility] No Panel InformationOrdered By: Rc Curtis on 04-08-2024 Acid Fast Smear [facility] AFB Specimen Processing [facility] Anaerobic Cult, Extended Incub [facility] Tissue Culture [facility] No Panel Informationon 04-08 Fungal Smear Result \R\ Fungus Stain [facility] Gram Stain Result 1 \R\ Gram Stain Result [facility] Miscellaneous Test Comment See comment [facility] Comment on above: Specimen Source: ELENA TRT - Foot Right - Foot Rt - 604.000 Eosinophils # (Auto) 0.2 10 3/uL 0.0-0.7 [facility] Immature Granulocyte # (Auto) 0.15 10 3/uL High 0.00-0.03 [facility] Platelet mean volume Auto (B ld) [Entitic vol]on 04-08-2024 Platelet mean volume (Bld) [Entitic vol] 9.8 fL 9.5-13.5 [facility] Platelets Auto (Bld) [#/Vol] on 04-08-2024 Platelets (Bld) [#/Vol] 482 10 3/uL High 150-450 [facility] RBC Auto (Bld) [#/Vol]on RBC (Bld) [#/Vol] 4.72 10 6/uL 4.70-6.10 [facility] Serum or plasma anion gap de terminationon 04-08-2024 Anion gap [Moles/Vol] 6.8 mmol/L [facility] ALL CBC WITH AUTO DIFFon BASOPHILS ABSOLUTE AUTO 0.1 [facility] Basophils/100 WBC (Bld) 0.6 % 0.2 - 2.0 % [facility] Eosinophils/100 WBC (Bld) 2.1 % 0.9 - 7.0 % [facility] Erythrocyte distribution width (RBC) [Ratio] 14.0 % 11.0 - 15.0 % [facility] Hematocrit (Bld) [Volume fraction] 41.9 % Low 42.0 - 54.0 % [facility] Hemoglobin (Bld) [Mass/Vol] 13.7 g/dL Low 14.0 - 18.0 g/dL [facility] IMMATURE GRANULOCYTES ABS AUTO 0.46 High [facility] Immature granulocytes/100 WBC (Bld) 2.9 % High 0.0 - 0.5 % [facility] Interpretation and review of laboratory results Abnormal [facility] LYMPHOCYTES ABSOLUTE AUTO 2.3 [facility] Lymphocytes/100 WBC (Bld) 14.7 % Low 20.5 - 60.0 % [facility] MCH (RBC) [Entitic mass] 31.5 pg 25.9 - 34.0 pg [facility] MCHC (RBC) [Mass/Vol] 32.7 g/dL 29.9 - 35.2 g/dL [facility] MCV (RBC) [Entitic vol] 96.3 fL High 80.0 - 94.0 fL [facility] MONOCYTES ABSOLUTE AUTO 1.2 High [facility] Monocytes/100 WBC (Bld) 7.8 % 1.7 - 12.0 % [facility] NEUTROPHILS ABSOLUTE AUTO 11.4 High [facility] Neutrophils/100 WBC (Bld) 71.9 % 43.0 - 75.0 % [facility] Platelet mean volume (Bld) [Entitic vol] 10.2 fL 9.5 - 13.5 fL [facility] TBH EO # 0.3 [facility] TBH PLT 475 High [facility] TB RBC 4.35 Low [facility] TBH WBC 15.8 High [facility] Kris 03-29-2024 L Specimen: [id number] Received: 03/29/247276 Status: [facility] Num: [id number] Spec Type: Surgical Subm Dr: Rc Curtis,DPM, [place] Tissues: A Bone Fragments - Other than Path Fracture (R 1 METARSAL BONE) Procedures: HE, Gross/Micro L3, Decalcification Age/ Patient Sex Location Account Attending Physician Tyler Mckinney W 63/M LABE[facility] [id number] Rc Curtis DPM, [place] SPEC NUM: [id number] RECD: 03/29/24 STATUS: TAMI COLON NUM: [id number] KATHIE: 03/29/[address]: Rc Curtis DPM, [place] ENTERED: 03/29/[address] [facility] DR: Ekta Heath SPEC TYPE: Surgical DEPT: ALEJANDRO JACOBS ENTERED BY: [id number] RECV BY: [id number] ORDERED: HE, Gross/Micro L3, Decalcification ORDERED: HE, [...] performed supporting the above interpretation -------- Specimen: [id number] Received: 03/29/24 Status: TAMI Darlene Num: [id number] Spec Type: Surgical Subm Dr: Rc Curtis DPM, [place] Tissues: A Bone Fragments - Other than Path Fracture (R 1 METARSAL BONE) Procedures: HE, Gross/Micro L3, Decalcification -------- Patient: Tyler Mckinney [id number] (Continued) -------- Specimen: [id number] Received: 03/29/24 (Continued) Signed (signature on file) Genaro Zamora MD 04/05/241707 -------- Specimen: [id number] Received: 03/29/24 Status: TAMI Colon Num: [id number] Spec Type: Surgical Subm Dr: Rc Curtis,DPM, [place] Tissues: A Bone Fragments - Other than Path Fracture (R 1 METARSAL BONE) Procedures: DUNCAN, Gross/Micro L3, Decalcification -------- Patient: Tyler Mckinney [id number] (Continued) -------- Specimen: [id number] Received: 03/29/24 (Continued) CPT Codes [id number] -------- -------- Specimen: [id number] Received: 03/29/24 Status: TAMI Colon Num: [id number] Spec Type: Surgical Subm Dr: Rc Curtis,DPShantell, [place] Tissues: A Bone Fragments - Other than Path Fracture (R 1 METARSAL BONE) Procedures: DUNCAN, Gross/Micro L3, Decalcification -------- Patient: Tyler Mckinney [id number] (Continued) -------- Signed (signature on file) Genaro Zamora MD 04/05/24 1708 Normal [facility] XR FOOT LT [...] Sukhdev PARKS Date: 2022-07-14 23:08 Normal [facility] GLYCOHEMOGLOBIN A1Con 2021 ADA RECOMMENDATION SEE BELOW Normal [facility] Comment on above: Result Comment: ADA RECOMMENDED LIMIT 4.0 - 6.0 ADA THERAPEUTIC TARGET < 7.0 ACTION SUGGESTED > 7.0 Performed By: #### A 1C #### [facility] [address] [address] [address] Jennifer Zamora Glucose [Mass/Vol] 212 mg/dL Normal [facility] Comment on above: Performed By: #### A 1C #### [facility] [address] [address] [address] Jennifer Zamora HbA1c (Bld) [Mass fraction] 9.0 % Critically high 4.5-6.[address] [facility] Comment on above: Performed By: #### A 1C #### [facility] [address] [address] [address] Jennifer Zamora PROF 14(COMP METB)on 022 Albumin [Mass/Vol] 3.4 g/dL Normal 3.4-5.0 [facility] Comment on above: Performed By: #### C MP #### [facility] [address] [place] [address] Dr. Jennifer Zamora Albumin/Globulin [Mass ratio] 0.9 {ratio} Normal [facility] Comment on above: Performed By: #### C MP #### [facility] [address] [address] [address] Jennifer Zamora ALP [Catalytic activity/Vol] 108 U/L Normal 46-116 [facility] Comment on above: Performed By: #### C MP #### [facility] [address] [place] [address] Dr. Jennifer Zamora ALT [Catalytic activity/Vol] 35 U/L Normal 16-63 [facility] Comment on above: Performed By: #### C MP #### [facility] [address] [place] [address] Dr. Jennifer Zamora Anion gap [Moles/Vol] 7.0 mmol/L Normal [facility] Comment on above: Performed By: #### C MP #### [facility] [address] [place] [address] Dr. Jennifer Zamora AST [Catalytic activity/Vol] 11 U/L Critically low 15-37 [facility] Comment on above: Performed By: #### C MP #### [facility] [address] [place] [address] Dr. Jennifer Zamora Bilirubin [Mass/Vol] 0.7 mg/dL Normal 0.2-1.0 [facility] Comment on above: Performed By: #### C MP #### [facility] [address] [place] [address] Dr. Jennifer Zamora Calcium [Mass/Vol] 8.9 mg/dL Normal 8.5-10.1 [facility] Comment on above: Performed By: #### C MP #### [facility] [address] [place] [address] Dr. Jennifer Zamora Chloride [Moles/Vol] 100 mmol/L Normal 98-[address] [facility] Comment on above: Performed By: #### C MP #### [facility] [address] [address] [address] Jennifer Zamora CO2 [Moles/Vol] 32.5 mmol/L Critically high 21.0-32.0 [facility] Comment on above: Performed By: #### C MP #### [facility] [address] [address] [address] Jennifer Zamora Creatinine [Mass/Vol] 1.05 mg/dL Normal 0.70-1.30 [facility] Comment on above: Performed By: #### C MP #### [facility] [address] [address] [address] Jennifer Zamora EGFR-AF LAO >60 Normal >=60 [facility] Comment on above: Performed By: #### C MP #### [facility] [address] [place] [address] Dr. Jennifer Zamora EGFR-NON AF LAO >60 Normal >=60 [facility] Comment on above: Performed By: #### C MP #### [facility] [address] [address] [address] Jennifer Zamora Globulin (S) [Mass/Vol] 3.7 g/dL Normal [facility] Comment on above: Performed By: #### C MP #### [facility] [address] [place] [address] Dr. Jennifer Zamora Glucose [Mass/Vol] 175 mg/dL Critically high 74-106 T [facility] Comment on above: Performed By: #### C MP #### [facility] [address] [place] [address] Dr. Jennifer Zamora Potassium [Moles/Vol] 4.5 mmol/L Normal 3.5-5.1 [facility] Comment on above: Performed By: #### C MP #### [facility] [address] [address] [address] Jennifer Zamora Protein [Mass/Vol] 7.1 g/dL Normal 6.4-8.2 [facility] Comment on above: Performed By: #### C MP #### [facility] [address] [address] [address] Jennifer Zamora Sodium [Moles/Vol] 135 mmol/L Critically low 136-[address] [facility] Comment on above: Performed By: #### C MP #### [facility] [address] [address] [address] Jennifer Zamora Urea nitrogen [Mass/Vol] 18.0 mg/dL Normal 7.0-18.0 [facility] Comment on above: Performed By: #### C MP #### [facility] [address] [address] [address] Jennifer Zamora Urea nitrogen/Creatinine [Mass ratio] 17.1 mg/mg Normal [facility] Comment on above: Performed By: #### C MP #### [facility] [address] [address] [address] Jennifer Zamora Vital Signs Date Time Vital Sign Value Performing Clinician Faci lity 02-01-2025 14:090400 Body height 180.34 cm Dara Eisenberg APRN Work Phone: [facility] 02-01-2025 14:090400 Body mass index (BMI) [Ratio] 41.7 kg/m2 Dara Eisenberg APRN Work Phone: [facility] 02-01-2025 14:09-0400 Body temperature 96.5 [degF] Dara Eisenberg APRN Work Phone: [facility] 02-01-2025 14:09-0400 Body weight 135.62 kg Dara Eisenberg APRN Work Phone: [facility] 02-01-2025 14:09-0400 Diastolic blood pressure 68 mm[Hg] Dara Eisenberg APRN Work Phone: [facility] 02-01-2025 14:090400 Heart rate 102 /min Dara Eisenberg APRN Work Phone: [facility] 02-01-2025 14:09-0400 SaO2% (BldA) [Mass fraction] 96 % Dara Eisenberg APRN Work Phone: [facility] 02-01-2025 14:09-0400 Systolic blood pressure 114 mm[Hg] Dara Eisenberg APRN Work Phone: [facility] [facility] 11-05-2024 10:260400 Body height 180.34 cm [facility] 11-05-2024 10:260400 Body mass index (BMI) [Ratio] 44.7 kg/m2 [facility] 11-05-2024 10:260400 Body weight 145.6 kg [facility] 11-05-2024 10:26040 Diastolic blood pressure 68 mm[Hg] [facility] 11-05-2024 10:260400 Heart rate 98 /min [facility] 11-05-2024 10:0400 Respiratory rate 14 /min [facility] 11-05-2024 10:26-0400 SaO2% (BldA) [Mass fraction] 90 % [facility] 11-05-2024 10:26-0400 Systolic blood pressure 128 mm[Hg] [facility] 05-03-2024 14:14-0400 Body height 180.34 cm ROWDY Eisenberg Work Phone: [facility] 05-03-2024 14:14-0400 Body mass index (BMI) [Ratio] 39.3 kg/m2 LIGHTING FIXTURES DECORATORFauzia Eisenberg Work Phone: [facility] 05-03-2024 14:14-0400 Body temperature 96.9 [degF] ROWDY Eisenberg Work Phone: [facility] 05-03-2024 14:14-0400 Body weight 128 kg ROWDY Eisenberg Work Phone: [facility] 05-03-2024 14:14-0400 Diastolic blood pressure 86 mm[Hg] ROWDY Eisenberg Work Phone: [facility] 05-03-2024 14:14-0400 Heart rate 108 /min LIGHTING FIXTURES DECORATORFauzia Diamond Faina Work Phone: [facility] 05-03-2024 14:14-0400 SaO2% (BldA) [Mass fraction] 92 % LIGHTING FIXTURES DECORATORFauzia Diamond Faina Work Phone: [facility] 05-03-2024 14:14-0400 Systolic blood pressure 142 mm[Hg] LIGHTING FIXTURES DECORATORFauzia Diamond Faina Work Phone: [facility] 04-05-2024 13:44-0400 Body height 180.34 cm DPM Rc Curtis Work Phone: [facility] 04-05-2024 13:44-0400 Body mass index (BMI) [Ratio] 39.6 kg/m2 DPM Rc Curtis Work Phone: [facility] 04-05-2024 13:44-0400 Body temperature 97.4 [degF] DPM Rc Curtis Work Phone: [facility] 04-05-2024 13:44-0400 Body weight 128.82 kg DPM Rc Curtis Work Phone: [facility] 04-05-2024 13:44-0400 Diastolic blood pressure 70 mm[Hg] DPM Rc Curtis Work Phone: [facility] 04-05-2024 13:44-0400 Heart rate 61 /min DPM Rc Curtis Work Phone: [facility] 04-05-2024 13:44-0400 SaO2% (BldA) [Mass fraction] 87 % DPM Rc Curtis Work Phone: [facility] 04-05-2024 13:44-0400 Systolic blood pressure 134 mm[Hg] DPShantell Curtis Work Phone: [facility] Encounters Encounter Date Encounter Type Care Provider Facility Start: 02-15-2025 ambulatory Helen Justi [place] [facility] Start: 02-01-2025 End: 02-01-2025 ambulatory Dara Eisenberg APRN Work Phone: [facility] Work Phone: Start: 02-01-2025 End: 02-01-2025 Patient encounter procedure Dara Eisenberg APRN [facility] Work Phone: Start: 01-27-2025 Non-patient / Non-visit Angelic Gen [facility] Work Phone: Start: 01-24-2025 End: 01-26-2025 Evaluation and management of inpatient Ghassan Zepeda Noahkinsey Facility[facility] Start: 01-24-2025 Emergency department patient visit Manuel Fletcher Facility:[facility] Start: 11-05-2024 End: 11-05-2024 ambulatory [facility] Work Phone: Start: 11-05-2024 End: 11-05-2024 Patient encounter procedure [facility] Work Phone: Start: 08-29-2024 Evaluation and management of inpatient MERRILL SAFI [facility] Start: 08-26-2024 Evaluation and management of inpatient BILL HORANI [facility] Start: 08-24-2024 Evaluation and management of inpatient PALOMO CADENCE [facility] Start: 08-24-2024 Evaluation and management of inpatient PALOMO CADENCE [facility] Start: 08-21-2024 [facility]: 08-21-[facility]24 [facility] Start: 08-20-2024 Evaluation and management of inpatient RUDY [facility] Start: 08-20-2024 Evaluation and management of inpatient RUDY [facility] Start: 08-19-2024 Evaluation and management of inpatient RUDY [facility] Start: 08-17-2024 Evaluation and management of inpatient RUDY [facility] Start: 08-16-2024 Evaluation and management of inpatient RUDY [facility] Start: 08-16-2024 Evaluation and management of inpatient RUDY [facility] Start: 08-15-2024 Evaluation and management of inpatient HUGO PRAJAPATI [facility] Start: 08-15-2024 End: 09-09-2024 Evaluation and management of inpatient SHAIKH MONO [facility] Start: 08-15-2024 Non-patient / Non-visit [facility] Work Phone: Start: 08-14-2024 Non-patient / Non-visit [facility] Work Phone: Start: 08-10-2024 End: 08-12-2024 Clinisync Result Encounter Shaikh Mono JARRETT Work Phone: [facility] Unsolicited Start: 08-10-2024 End: 08-12-2024 Clinisync Result Encounter Shaikh Mono JARRETT Work Phone: [facility] Unsolicited Start: 05-03-2024 End: 05-03-2024 ambulatory ROWDY Eisenberg Work Phone: [facility] Work Phone: Start: 05-03-2024 End: 05-03-2024 Patient encounter procedure ROWDY Eisenberg Work Phone: [facility] Physician [facility] Work Phone: Start: 04-12-2024 End: 04-12-2024 ambulatory ROWDY Eisenberg Work Phone: [facility] Work Phone: Start: 04-12-2024 End: 04-12-2024 Patient encounter procedure ROWDY Eisenberg Work Phone: [facility] Physician [facility] Work Phone: Start: 04-08-2024 End: 04-08-2024 ambulatory LIGHTING FIXTURES DECORATORFauzia Diamond Faina Work Phone: [facility] Work Phone: Start: 04-08-2024 End: 04-08-2024 Departed Referred ROWDY Diamond Faina Work Phone: [facility] Start: 04-08-2024 Non-patient / Non-visit LIGHTING FIXTURES DECORATORFauzia Diamond Faina Work Phone: [facility] Physician [facility] Work Phone: Start: 04-05-2024 End: 04-05-2024 Clinisync Result Encounter Shaikh Mono JARRETT Work Phone: [facility] Unsolicited Start: 04-05-2024 End: 04-05-2024 Clinisync Result Encounter Shaikh Mono JARRETT Work Phone: [facility] Unsolicited Start: 04-05-2024 End: 04-05-2024 ambulatory DPM Rc Curtis Work Phone: [facility] Work Phone: Start: 04-05-2024 End: 04-05-2024 Patient encounter procedure DPM Rc Curtis Work Phone: [facility] Physician [facility] Work Phone: Start: 03-29-2024 End: 03-29-2024 [facility] Work Phone: Start: 03-29-2024 End: 03-29-2024 Departed Referred DPM Rc Curtis Work Phone: [facility] Start: 01-26-2024 Non-patient / Non-visit DPM Rc Curtis Work Phone: [facility] Work Phone: Start: 07-14-2022 End: 07-15-[address] EDELMIRA SANTILLAN Facility:[facility] Start: 05-13-2022 End: 05-14-[address] MADELEINE MARCELINO Facility:[facility] Procedures Date Procedure Procedure Detail Performing Clinician Start: 08-10-2024 Bacteria identified in Urine by Culture Shaikh Mono JARRETT Work Phone: Start: 04-08-2024 Acid Fast Smear LIGHTING FIXTURES DECORATOR Elmer Eisenberg Work Phone: Start: 04-08-2024 AFB [...] 04-08-2024 Acid Fast Culture Acid Fast Culture [facility] Payers Date Payer Category Payer Private Health Insurance [id number] 2024 Self-pay 2024 Medicare [id number] 1959 Self-pay [id number] 1959 Unknown [id number] 1959 Unknown [id number] 1958 Unknown [id number] 1958 Unknown [id number] [id number] .593 1958 Unknown [id number] [id number] .727 1958 Unknown [id number] [id number] .727 1958 Unknown [id number] [id number] .727 1958 Unknown [id number] [id number] .727 1958 Unknown [id number] 2.16.840.1.017408.3.579.2 .72 1958 Unknown [id number] 2.16.840.1.403343.3.579.2 .72 1958 Unknown [id number] 2.16.840.1.399602.3.579.2 .72 1958 Unknown [id number] 2.16.840.1.768400.3.579.2 .72 1958 Unknown [id number] [id number] .727 Medicare [employer] [employer] [id number] Private Health Insurance [facility] [id number] Unknown [id number] Unknown Regular Insurance [id number] Social History Date Type Detail Facility Tobacco smoking status [facility] Unknown if ever smoked [facility] Work Phone: Start: 1960 Sex Assigned At Male F [facility] Start: 04-05-2024 Tobacco smoking status NHIS Smoker (finding) [facility] Tobacco smoking status [facility] Tobacco smoking consumption unknown [facility] Start: 1960 Sex assigned at Not on file [facility] Gender identity Not on file [facility] are Start: 11-05-2024 Sex Male (finding) [facility] Start: 04-05-2024 Tobacco smoking status ARIS Smokes tobacco daily (finding) [facility] Medical Equipment Procedure Code Equipment Code [...] Locations R1: This test was performed at: [facility], [address] [place] [address], [facility] , , [facility] Comment on above: Performed By: #### [id number] #### [facility] [address] [place] [id number] 01-31-2025 Note Microbiology PROCEDURE: Blood Culture Charcoal [...] Locations R1: This test was performed at: [facility], [address] [place] [address], [id number] , [place], [facility] Comment on above: Performed By: #### [id number] #### [facility] [address] [place] [id number] 01-26-2025 Note Patient Education - Text Atrial [...] signals of the heart. ??? An ambulatory personnel monitor to record your heart's activity for a [...] signs of a (more content not included)... [facility] 01-26-2025 Note Discharge Summary Admission and Discharge [...] Insulin dependent type 2 diabetes mellitus, 01/24/2025 jail (current) use of insulin, 01/24/2025 Medical problem [...] regimen. Patient was insistent on trying an vbte-otw-qkfwyoa supplement that he stated would cure diabetes [...] his wounds and recommended continued follow-up with [place] [facility] where he receives care. Patient successfully passed a voiding trial and was voiding easily after removal of Brunson. Creatinine had improved from 1.4-0.8 on discharge. Medically stable for discharge home on 01/26/2025. Follow-up PCP in 7 to 10 days Continued care at [place] wound clinic Referral sent to Dr. Rosen in [place] for endocrinology follow-up for better glucose control. Discussed this with patient and he was agreeable. Follow-up with [facility] anticoagulation clinic Medication changes Continue metoprolol Continue [...] Completed -- 01/24/25 20:11:27 EDT Consult to Senior Coldfusion Developer (Senior Coldfusion Developer Consult) - Ordered -- 01/24/25 20:22:00 EDT, [...] & normal b (more content not included)... [facility] Comment on above: Result Comment: [...] signals of the heart. ??? An ambulatory personnel monitor to record your heart's activity for a [...] signs of a (more content not included)... [facility] 01-26-2025 Note Progress Note - Matt devi [...] Plan; TBD Please contact Pharmacy at ext. [phone] if there are any questions. [facility] 01-25-2025 Note Interdisciplinary No te - OT Pt is seen for OT evaluation. AMPA score: 16/24. Pt is agreeable only to sitting EOB, no further transfers or mobility and becomes very agitated due to BLE pain. Pt is below functional baseline for ADL performance. OT to follow for treatment. Recommending HH vs SNF at this time pending progress with treatment. [facility] 01-25-2025 Note Progress Note-Physic janae Assessment/Plan 01/25 [...] Orders Initial Hospital Care/Day Moderate 55 Minutes [id number] Sbsq Hospital Care/Day Moderate 35 Minutes [id number] 2. Cellulitis of leg (L03.119: Cellulitis of [...] Monitoring on telemetry. Patient noncompliant with anticoagulation. [id number] score is 4. Reports that Eliquis dose [...] despite clear documentation from previous admission in [place] in August 2024. Reports that he stopped taking all of his diabetes medications. 8. Insulin dependent type 2 diabetes mellitus (E11.9: Type 2 diabetes mellitus without complications) A1c: 12.6 BGT ACHS with sliding scale insulin as needed Lantus 30 units nightly at home. Patient noncompliant. Tolerated 20units QHS 01/24, uptitrate to 30 units today. Goal glucose will be less than 180. 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 (Z79.4: 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) Orders: acetaminophen, 975 [...] Capillary Glucose POC Cardiac Monitoring Consult to Senior Coldfusion Developer Creatine Kinase (more content not included)... [facility] Comment on above: Result Comment: [...] list: All Problems Smoker / SNOMED CT 025662628 / Confirmed Added secondary to documentation in Social History. Tobacco use / SNOMED CT 1514793750 / Confirmed, Active Problems (2) Smoker Tobacco [...] an outpatient with the wound center in [place]. [facility] Comment on above: Result Comment: Elec tronically Signed By: Linda GONZALEZ, Sina Cruz\.br\Date and Time Signed: 01/25/25 12:56 EDT 01-25-2025 Note Interdisciplinary No te - PT PT Evaluation done this date. Pt. with on AM-PAC this date. He requires supervision to CGAx1 with all activity. Uses w/c and FWW at baseline. Recommend home with home health PT. [facility] 01-25-2025 Note Progress Note - Phar shandra [...] Plan; TBD Please contact Pharmacy at ext. [phone] if there are any questions. [facility] 01-24-2025 Note History and Physical Basic Information [...] with concern for acute renal insufficiency versus KRISTNIE. Creatinine is 1.4. Baseline creatinine is 0.78 [...] would be 75 kg. Given 2 L. [place] sepsis bolus will be 2.25 L, ever, [...] specifically. He follows with Dr. 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 He denies ever seeing vascular surgery. He follows with [place] wound [facility]. Stated that he has not [...] Normal alignment. Ext (more content not included)... [facility] Comment on above: Result Comment: [...] at home: Medicines ??? Take and use anlh-lzq-kzictly and prescription medicines and creams only as [...] limbs and wais (more content not included)... [facility] 01-24-2025 Note Progress Note-Nurse tourniquerts removed by puneet [facility] 01-24-2025 Note Progress Note - Matt devi [...] Plan; TBD Please contact Pharmacy at ext. [phone] if there are any questions. Spoke with Dr. Ding - he is ordering a lovenox bridge [facility] 01-24-2025 Note Progress Note-Nurse derrell stopped after 4 minutes for blood cultures that are new order. puneet informed. [facility] 01-24-2025 Note Progress Note-Nurse pt reportedly wears 5 lpm at ho me. d8id not say before. no saturating properly on at home O2 [facility] 11-05-2024 Evaluation note Diagnosis Onset Date Resolution [...] Venous insufficiency (chronic) (peripheral) acute October 10:18am [facility] Work Phone: 1(437) 352-807802-20-2025 [facility]2025 [facility]-2025 [facility] 09-07-2024 NoteDISCHARGE PLANNING UPDATE Patient now agreeable to SNF placement. Insurance authorization submitted for [facility] in [place]. Awaiting insurance decision.[facility]02-18[facility]-18-2025 [facility]Bar[facility]-18-2025 [facility] 09-07-2024 [facility]02-18-2025 [facility]02-17-2025 [facility] 09-06-2024 [facility]Bar[facility]-17-2025 [facility] 09-05-2024 [facility]-16-2025 [facility]-15-2025 [facility] 09-04-2024 [facility]-15-2025 [facility]-14-2025 [facility] 09-03-2024 [facility]-14-2025 [facility]-13-2025 [facility] 09-02-2024 [facility]Un[facility]02-13-2025 [facility]Un[facility]02-13-2025 [facility]Un[facility] 09-01-2024 NoteDISCHARGE PLANNING UPDATE [facility] ([place], [place]) is [facility]. Per their admissions team, they are submitting to insurance for authorization today, 09/01.[facility] 09-01-2024 [facility]UnMart[facility]02-12-2025 NoteBar[facility]02-11-2025 [facility]Un[facility] 08-31-2024 NoteBar[facility]02-11-2025 NoteBar[facility]02-11-2025 [facility] 08-30-2024 NoteBar[facility]02-10-2025 NoteBar[facility]02-10-2025 Note[facility] 08-30-2024 [facility]Un[facility]02-09-2025 [facility]Un[facility]02-08-2025 [facility]Un[facility] 08-28-2024 NoteBar[facility]02-08-2025 NoteBar[facility]02-07-2025 [facility] 08-27-2024 Note[facility]-06-2025 [facility]Un[facility]-06-2025 [facility]Un[facility] 08-26-2024 [facility]Un[facility]02-06-2025 [facility]Un[facility]02-05-2025 [facility]Un[facility] 08-25-2024 [facility]Un[facility]02-05-2025 [facility]Un[facility]02-05-2025 [facility]Un[facility] 08-24-2024 [facility]Un[facility]02-04-2025 [facility]Un[facility]02-04-2025 [facility]Un[facility] 08-24-2024 NotePatient is off unit for testing at this time.[facility]02-04-2025 NoteUnMart[facility]02-04-2025 Note [facility]02-04-2025 NoteUn[facility]02-04-2025 NoteUn[facility]02-04-2025 Note [facility]02-03-2025 [facility]Un[facility]02-03-2025 NoteBar[facility]02-02-2025 Note [facility]02-01-2025 NoteBar[facility]02-01-2025 NoteBar[facility]01-31-2025 Note [facility]01-31-2025 NoteBar[facility]01-30-2025 [facility]Un[facility]01-29-2025 Note [facility]01-28-2025 [facility]Un[facility]01-28-2025 NoteUn[facility]01-27-2025 Note [facility]01-27-2025 NoteUnMart[facility] Hospital01-27-2025 NoteUnMartins Ferry HospitalEvaluation noteNo assessment information availableElyria [facility] Hospital Work Phone: Evaluation note* Diagnosis Onset Date Resolution Status Type 2 diabetes mellitus acu [facility] Work Phone: Evaluation note* Diagnosis Onset Date Resolution Status COPD (chronic obstructive pulmonary disease) acute Hypertension acute MRSA cellulitis of right foot acute Nicotine dependence acute Non-compliance acute Oxygen dependent acute Type 2 diabetes mellitus acu te Ulcer of right foot due to type 2 diabetes mellitus acute [facility] Work Phone: Evaluation note* Diagnosis Onset Date Resolution Status COPD (chronic obstructive pulmonary disease) acute Hypertension acute MRSA cellulitis of right foot acute Nicotine dependence acute Non-compliance acute Oxygen dependent acute Type 2 diabetes mellitus acu te Ulcer of right foot due to type 2 diabetes mellitus acute Acute osteomyelitis of foot acute [facility] Work Phone: Evaluation note* Diagnosis Onset Date Resolution Status COPD (chronic obstructive pulmonary disease) acute Hypertension acute MRSA cellulitis of right foot acute Nicotine dependence acute Non-compliance acute Oxygen dependent acute Type 2 diabetes mellitus acu te Ulcer of right foot due to type 2 diabetes mellitus acute Acute osteomyelitis of foot acute Low back pain acute [facility] Work Phone: Evaluation note* Diagnosis Onset Date [...] diabetes mellitus acute November 05, 2024 10:18am [facility] Work Phone: Reason for referral (narrative)No reason for referral information availableKindred [facility] Work Phone: Summary Purpose Family History No Family History Records Found Relationship Condition Age at Onset Recorded Date/T mecca mother Malignant neoplasm of cervix Unknown Advance Directives No Advanced Directives Records Found Advance Directive Response Recorded Date/ Time Advance Directives No March 2:40pm Chief Complaint and Reason for Visit Chief Complaint Admit Date F/U residential stay/Medications-HIGH R ISK November 05, 2024 10:18am Amb Documentation January 27, 2025 8:33 am [facility] follow up February 01, 2025 2:06 pm [...] 2024 10:18am Chief Complaint Admit Date F/U residential stay/Medications-HIGH R ISK November 05, 2024 10:18am [...] and content) DATE CREATED AUTHOR 07/19/2022 [facility] DATE CREATED AUTHOR AUTHOR'S ORGANIZ ATION 04/20/2024 [facility] DATE CREATED AUTHOR AUTHOR'S ORGANIZ ATION 10/20/2024 [facility] DATE CREATED AUTHOR AUTHOR'S ORGANIZ ATION 01/28/2025 [facility] DATE CREATED AUTHOR AUTHOR'S ORGANIZ ATION 01/29/2025 [facility] DATE CREATED AUTHOR AUTHOR'S ORGANIZ ATION 01/30/2025 [facility] DATE CREATED AUTHOR AUTHOR'S ORGANIZ ATION 02/04/2025 [facility] DATE CREATED AUTHOR AUTHOR'S ORGANIZ ATION 02/17/2025 [facility] Care Teams (unrecognized sec tion and content) Team Status: Active Member Role Status Dates Magnolia Chavez LPN Attending Provider Active St art: January 26, 2024 Team Status: Inactive Member Role Status Dates Rc Curtis DPM MS Attending Provider Active Start: March 29, 2024 End: March 29, 2024 Team Status: Active Member Role Status Dates Dara Eisenberg APRN INTERFACE DEVELOPER-C Primary Care Provider Active Team Status: Inactive Member Role Status Dates Dara Eisenberg APRN INTERFACE DEVELOPER-C Primary Care Provider, Attending Provider Active Start: April 05, 2024 End: April 05, 2024 Team Status: Active Member Role Status Dates Dara Eisenberg APRN INTERFACE DEVELOPER-C Primary Care Provider, Attending Provider Active Start: April 08, 2024 Team Status: Inactive Member Role Status Dates Dara Eisenberg APRN INTERFACE DEVELOPER-C Primary Care Provider Active Start: March 212023 End: April 08, 2024 Rc Curtis DPM MS Attending Provider Active Start: April 08, 2024 End: April 08, 2024 Team Status: Inactive Member Role Status Dates Dara Eisenberg APRN INTERFACE DEVELOPER-C Primary Care Provider Active Start: March 222023 End: April 12, 2024 Navdeep Trujillo MD Attending Provider Active Sta rt: April 12, 2024 End: April 12, 2024 Team Status: Inactive Member Role Status Dates Dara Eisenberg APRN INTERFACE DEVELOPER-C Primary Care Provider, Attending Provider Active Start: May 03, 2024 End: May 03, 2024 Team Status: Active Member Role Status Dates Dara Eisenberg APRN INTERFACE DEVELOPER-C Primary Care Provider Active Start: July Shaikh Mono MD Attending Provider Active Sta rt: August 14, 2024 Team Status: Active Member Role Status Dates Dara Eisenberg APRN INTERFACE DEVELOPER-C Primary Care Provider Active Start: July Shaikh Mono MD Attending Provider Active Sta rt: August 15, 2024 Team Status: Inactive Member Role Status Dates Dara Eisenberg APRN INTERFACE DEVELOPER-C Primary Care Provider, Attending Provider Active Start: November 05, 2024 End: November 05, 2024 Team Status: Inactive Member Role Status Dates Dara Eisenberg APRN INTERFACE DEVELOPER-C Primary Care Provider Active Start: November 05, 2024 End: November 05, 2024 Dara Eisenberg APRN INTERFACE DEVELOPER-Bro Attending Provider Act mook Start: November 05, 2024 End: November 05, 2024 Team Status: Active Member Role Status Dates Dara Eisenberg APRN INTERFACE DEVELOPER-C Primary Care Provider Active Start: January 27, 2025 Agnelic Blevins CMA Attending Provider Active Start: January 27, 2025 Team Status: Inactive Member Role Status Dates Dara Eisenberg APRN INTERFACE DEVELOPER-C Primary Care Provider Active Start: February 01, 2025 End: February 01, 2025 Dara Eisenberg APRN INTERFACE DEVELOPER-C Attending Provider Act mook Start: February 01, [...] BE BASED ON THE PRIMARY CLINICAL RECORDS. [facility] provides no warranty or guarantee of the accuracy or completeness of information in this document.
== END 2025-03-10 13:51 | disposition home or self-care (01) ==
LOC: WC 13:50
PROVIDERS: PCP Nurse Practitioner Family; Visit Provider Physician Assistant
DX: I87.313 Chronic venous hypertension (idiopathic) with ulcer of bilateral lower extremity (principal); L97.822 Non-pressure chronic ulcer of other part of left lower leg with fat layer exposed; L97.812 Non-pressure chronic ulcer of other part of right lower leg with fat layer exposed
CPT/HCPCS: 29581

== ENCOUNTER 2025-03-14 13:00 | Outpatient (OUT) | payer MEDICARE, SELFPAY ==
--- OUTSIDE RECORDS SUMMARY | 2025-03-14 14:25 | XMS_ITS ---
Author Name Auto Generated, Auto Generated Organization [facility] Address [address] [place] [address] Phone [phone] Care Team Providers Care Activities Manager Name Role Phone Saud Finch Unavailable [phone] Brit Myers Unavailable [phone] Saud Myersa Unavailable [phone] Functional Status No Results Mental Status No Results Allergies and Intolerances No Known Allergies Encounters Program Name Primary Diagnosis Admission Date/Time Dis charge Date/Time Home-based Hospice Encounter for pallia tive care [place] Aug 22 19:00:00 EST 2024 Problems Active [...]
--- OUTSIDE RECORDS SUMMARY | 2025-03-14 14:25 | XMS_ITS ---
Author Name Auto Generated, Auto Generated Organization [facility] Address [address] [place] [address] Phone [phone] Care Team Providers Care Alarm Signaler Name Role Phone Saud Finch Unavailable [phone] Brit Myers Unavailable [phone] Saud Myersa Unavailable [phone] Functional Status No Results Mental Status No Results Allergies and Intolerances No Known Allergies Encounters Program Name Primary Diagnosis Admission Date/Time Dis charge Date/Time Home-based Hospice Encounter for pallia tive care [place] Aug 22 19:00:00 EST 2024 Problems Active [...]
--- OUTSIDE RECORDS SUMMARY | 2025-03-14 14:27 | XMS_ITS | Clinical Summary ---
Author Organization [facility] Address [id number] [address] [id number] Care Team Providers Care Pool Technician Name Role Phone Unavailable Primary Care Provider [...]
--- OUTSIDE RECORDS SUMMARY | 2025-03-14 14:27 | XMS_ITS | Clinical Summary ---
Author Organization [facility] Address [address] [place] [address] Care Team Providers Care Ground Transportation Operator Name Role Phone Dara Eisenberg NP Primary Care Provider Encounters Date Type Department Care Team Description 01/26/2025 Abstract [facility] [address] [place] [address] Sina Mckeon, DPM FACFAS from Last 3 Months Social History Tobacco Use Types Packs/Day Years Used Date Smoking Tobacco: Never Assessed Sex and Gender Information Value Date Recorded Sex Assigned at Not on file Legal Sex Male 7:20 PM EDT Gender Identity Not on file Sexual Orientation Not on file Plan of Treatment Not on file Insurance [employer] MEDICARE Care Teams Ground Transportation Operator Relationship Specialty Start Date End Date Dara Eisenberg NP [address] [place] [id number] PCP - General Family Medicine 11/11/24
--- OUTSIDE RECORDS SUMMARY | 2025-03-14 14:27 | XMS_ITS | Encounter Summary ---
Author Organization [facility] Address [address] [place] [address] Care Team Providers Care Lead Care Manager Name Role Phone Dara Eisenberg HAM PUMPER Primary Care Provider Encounter Details Date Type Department Care Team ([facility] Contact Info) Description 01/26/2025 Abstract [facility] [address] [place] [id number] Sina Mckeon, DPM FACFAS [address] [place] [address] Social History Tobacco Use Types Packs/Day Years [...] on filedocumented in this encounter Care Teams Lead Care Manager Relationship Specialty Start Date End Date Dara Eisenberg NP [address] [facility] [place] [address] PCP - General Family Medicine 11/11/24 documented as of this encounter
--- OUTSIDE RECORDS SUMMARY | 2025-03-14 14:27 | XMS_ITS | Clinical Summary ---
Author Organization [facility] Address [address] [place] [address] Care Team Providers Care Trackmobile Operator Name Role Phone No, Physician Primary Care [...] - 1-dose 75+ series) 2033 Care Teams Trackmobile Operator Relationship Specialty Start Date End Date No, Physician [facility] PCP - General 10/04/16
--- OUTSIDE RECORDS SUMMARY | 2025-03-14 14:30 | XMS_ITS | CCD ---
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 [Mass/Vol] 33.6 g/dL Normal 31.4-36.0 [facility] Comment on above: Performed By: #### 2 [id number] #### [facility] [address] [place] [address] MCV (RBC) [Entitic vol] 91.8 fL Normal 80.0-100.0 [facility] Comment on above: Performed By: #### 2 [id number] #### [facility] [address] [place] [address] Sherman Absolute 1.3 E9/L High 0.2-1.0 [facility] Comment on above: Performed By: #### 2 [id number] #### [facility] [address] [place] [address] Monocytes/100 WBC (Bld) 7.6 % Normal 4.0-14.0 [facility] Comment on above: Performed By: #### 2 [id number] #### [facility] [address] [place] [address] Neutro Absolute 14.8 E9/L High 2.0-7.5 [facility] Comment on above: Performed By: #### 2 [id number] #### [facility] [address] [place] [address] Neutro Auto 85.3 % High 36.0-75.0 [facility] Comment on above: Performed By: #### 2 [id number] #### [facility] [address] [place] [address] Platelet 269.0 E9/L Normal 150.0-500.0 [facility] Comment on above: Performed By: #### 2 [id number] #### [facility] [address] [place] [address] Platelet mean volume (Bld) [Entitic vol] 8.7 fL Normal 6.4-10.8 [facility] Comment on above: Performed By: #### 2 [id number] #### [facility] [address] [place] [address] RBC 4.8 E12/L Normal 4.3-5.9 [facility] Comment on above: Performed By: #### 2 [id number] #### [facility] [address] [place] [address] WBC 17.4 E9/L High 4.0-11.0 [facility] Comment on above: Performed By: #### 2 [id number] #### [facility] [address] [place] [address] Capillary Glucose POCon 07-0 Glucose [Mass/Vol] 490 mg/dL Abnormal 55-99 [facility] Comment on above: Result Comment: Cindy calle RN/MD Performed By: #### 2 [id number] #### [facility] [address] [place] [address] ED Clinical Summaryon 2024 ED Clinical Summary ED Clinical Summary [address] [address] ED Clinical Summary Person Information [facility]: [facility] Age: 64 Years : 1960 Sex: Male Language: Monegasque PCP: DARA EISENBERG CNP Marital Status: Single Phone: [phone] Visit Id: Visit Reason: Medical problem - major; VERICOSE VEIN TOURNIQUET Speciality: Acuity: 2 Enc Type: Inpatient Med Service: Medical Arrival: 01/24/2025 11:29:33 Discharge: LOS: 000 07:25 Checkin: 01/24/2025 11:29:33 Checkout: 01/24/2025 18:54:25 Dispo Type: Admitted as IP to this [facility] EVENTS: Event Name Event Status Request [...] 18:23:37 Patient Care Request 01/24/2025 18:23:37 ADDRESS: [address] [place] [id number] PHYS DOC NOTES: MEDICAL INFORMATION: Prescriptions Given: New Medications [id number], [address], [place] [id number], [phone] doxycycline (doxycycline hyclate 100 mg Cap) 1 Capsules By Mouth 2 times a day for 7 Days. Refills: 0. PATIENT EDUCATION INFORMATION: Instructions: Cellulitis, Adult, Best-vw-Rxrl; Bleeding Varicose Veins Follow up: With: Address: When: DARA EISENBERG [address], [address] [place] [phone] Business (1) In 3 days 01/27/2025 Comments: Call Dr for diagnosis based follow up DIAGNOSIS: 1:Severe sepsis; 2:Cellulitis of leg; 3:KRISTINE (acute kidney injury); 4:Atrial fibrillation with RVR; 5: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; 6:Hyponatremia; 7:Noncompliance with medications Normal [facility] ED Note-Physicianon 01-25-20 ED Note-Physician ED Note-Physician [...] of the patient. Sepsis Data [x] Patient's [place] body weight was considered in sepsis fluid [...] nonco (more content not included)... Normal [facility] Comment on above: Result Comment: Elec tronically Signed By: Puneet Jung PA-C.br\Date and Time Signed: 01/24/25 13:02 EDT\.br\Electronically Co-Signed By: Puneet Jung PA-C.br\Date and Time Co-Signed: 01/24/25 15:25 EDT\.br\Electronically Co-Signed By: Puneet Jung PA-C.br\Date and Time Co-Signed: 01/24/25 16:27 EDT\.br\Electronically Co-Signed By: Justine Otto, Manuel Mathis\.br\Date and Time Co-Signed: 01/24/25 18:08 EDT ED Patient Summaryon 025 ED Patient Summary ED Patient Summary [place] [address] Patient Discharge Instructions Person Information Name: TYLER MCKINNEY Age: 64 Years Arrival Date: 01/24/2025 11:29:33 Discharge Diagnosis: 1:Severe sepsis; 2:Cellulitis of leg; 3:KRISTINE (acute kidney injury); 4:Atrial fibrillation with RVR; 5: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; 6:Hyponatremia; 7:Noncompliance with medications Primary Care Physician: DARA EISENBERG CNP Provider Information Primary Provider: Manuel Fletcher M.D. Advanced Bit Bender:Puneet Jung PA-C The exam and treatment you received in the Emergency Department were for an urgent problem and are not intended as complete care. It is important that you follow up with a doctor, nurse practitioner, or physician???s server assistant for ongoing care. If your symptoms [...] Instructions: With: Address: When: DARA EISENBERG [address] [facility], [facility] [place] [phone] Business (1) In 3 days 01/27/2025 Comments: Call Dr for diagnosis based follow up In the event that this physician does not participate in your insurance network, please consult with your insurance company to find a nearby participating provider. Patient Education Materials: Cellulitis, Adult, Hrcv-nm-Cqse; Bleeding Varicose Veins A MESSAGE TO ALL PATIENTS REGARDING OPIOIDS PRESCRIPTION OPIOIDS: WHAT YOU NEED TO KNOW Prescription opioids can be used to help relieve xezgioax-nj-fstulo pain and are often prescribed following a [...] toilet, f (more content not included)... Normal [facility] Lactic Acidon 01-24-2025 Lactic Acid Lvl 1.0 mmol/L Normal 0.5-2.2 [facility] Comment on above: Performed By: #### 2 [id number] #### [facility] [address] [place] [address] PT & PTTon 01-24-2025 INR Coag (PPP) [Relative time] 1.03 {INR} Invalid Interpretation Code [facility] Comment on above: Result Comment: INR results are specifically intended to assess patients stabilized on long-term Anticoagulation therapy suggested INR???s ???Less Intensive Anticoagulation??? 2.0 ??? 3.0 Conventional Range 3.0 ??? 4.5 Performed By: #### 1 [id number] #### [facility] [address] [place] [address] PT 11.5 second(s) Normal 9.4-12.5 [facility] Comment on above: Result Comment: [...] were obtained from a study by Shimon [place], et al. prepared from 1437 samples obtained at 7 different centers using the same coagulation reagent and instrumentation as [facility]. Currently there are no coagulation studies available worldwide for children to 14 days, and no normal ranges. Performed By: #### 1 [id number] #### [facility] [address] [place] [address] PTT 27.7 second(s) Normal 25.1-36.5 [facility] Comment on above: Result Comment: [...] the same coagulation reagent and instrumentation as [facility]. Currently there are no coagulation studies available worldwide for children to 14 days, and no normal ranges. Heparin therapeutic range (represented by Anti-Factor Xa activity of 0.2 - 0.4 U/mL) corresponds to PTT of 56.6 - 109.0 sec. Performed By: #### 1 [id number] #### [facility] [address] [place] [address] Pre-Arrival Noteon Pre-Arrival Note Pre-Arrival Note Pre-Arrival Summary Name: , Current Date: 01/24/2025 11:30:22 EDT Gender: Date of : Age: Pre-Arrival Type: EMS ETA: 01/24/2025 11:50:00 EDT Primary Care Physician: Presenting Problem: varicose vein tourniquet Pre-Arrival User: [address] Referring Source: Location: [place] Completion Date/Time: 01/24/2025 11:20:00 [facility] Emergency Department Pre-Hospital Report Form Vital Signs: Pre-Hospital Report: Treatment in Route: Response to Treatment: Misc. Issues: Normal [facility] Procalcitoninon 01-24-2025 Procalcitonin .09 ng/mL Normal .00-.50 [facility] Comment on above: Result Comment: <0.5 ng/mL [...] to 24 hours. Performed By: #### 2 [id number] #### [facility] [address] [place] [address] Troponin 0 Hr.on 01-24-2025 Troponin HS 4.60 pg/mL Low 15.90-38.40 [facility] Comment on above: Result Comment: The 95% CI (Confidence Interval) PPV (Positive Predictive Value) for myocardial infarction in females is 38 pg/mL, in males 51 pg/mL. The results should be used in conjunction with clinical conditions of myocardial infarction. (Access High Sensitivity Troponin I Instructions For Use, Charli Winona, February 2018) Performed By: #### 1 [id number] #### [facility] [address] [place] [address] UA with Cult Rflxon 01-25-20 25 Color (U) Light-Yellow Normal Yellow [facility] Comment on above: Result Comment: Micr oscopic readings are only performed on those samples that meet specific criteria set forth by [facility]. Performed By: #### 4 [id number] #### [facility] [address] [place] [id number] Ketones Ql (U) Negative Normal Negative [facility] Comment on above: Performed By: #### 4 [id number] #### [facility] [address] [place] [address] UA Blood 1+ mg/dL Abnormal Negative [facility] Comment on above: Performed By: #### 4 [id number] #### [facility] [address] [place] [address] UA Clarity Clear Normal Clear [facility] Comment on above: Performed By: #### 4 [id number] #### [facility] [address] [place] [address] UA Glucose 4+ mg/dL Abnormal Negative [facility] Comment on above: Performed By: #### 4 [id number] #### [facility] [address] [place] [address] UA Leuk Est Negative Normal Negative [facility] Comment on above: Performed By: #### 4 [id number] #### [facility] [address] [place] [address] UA Mucous Trace Normal Negative [facility] Comment on above: Performed By: #### 4 [id number] #### [facility] [address] [place] [address] UA Nitrite Negative Normal Negative [facility] Comment on above: Performed By: #### 4 [id number] #### [facility] [address] [place] [address] UA pH 5.0 Invalid Interpretation Code 5.0-9.0 [facility] Comment on above: Performed By: #### 4 [id number] #### [facility] [address] [place] [address] UA Protein Negative Normal Negative [facility] Comment on above: Performed By: #### 4 [id number] #### [facility] [address] [place] [address] UA RBC 4-20 Abnormal 0-3 [facility] Comment on above: Performed By: #### 4 [id number] #### [facility] [address] [place] [address] UA Spec Grav 1.020 Invalid Interpretation Code 1.005-1.030 [facility] Comment on above: Performed By: #### 4 [id number] #### [facility] [address] [place] [address] UA Urobilinogen Negative Normal Negative [facility] Comment on above: Performed By: #### 4 [id number] #### [facility] [address] [place] [address] UA WBC 0-5 Normal 0-5 [facility] Comment on above: Performed By: #### 4 [id number] #### [facility] [address] [place] [address] Urobilinogen (U) [Mass/Vol] Negative Normal Negative [facility] Comment on above: Performed By: #### 4 [id number] #### [facility] [address] [place] [address] UA Spec Desc Clean Catch Normal [facility] Comment on above: Performed By: #### 4 [id number] #### [facility] [address] [place] [address] XR Chest 2 Viewson XR Chest 2 [...] Krishna Ray MD Transcribed by: [employer] Technologist: DOCK GUARD Normal [facility] eGFRon 01-24-2025 eGFR 55 mL/min/1.73 m2 Low >=59 [facility] Comment on above: Performed By: #### 1 [id number] #### [facility] [address] [place] [address] HbA1c HPLC (Bld) [Mass fract ion]on 11-05-2024 HbA1c (Bld) [Mass fraction] 10.1 % [facility] CBC WITH AUTO DIFFERENTIALon 09-09-2024 Basophils (Bld) [#/Vol] 0.05 10*3/uL Normal 0.00-0.20 [facility] Comment on above: Performed By: #### L [id number] ####[facility] (BEAKER)[address] [place] [address] Basophils/100 WBC (Bld) 0.6 % Normal 0.0-1.0 [facility] Comment on above: Performed By: #### L [id number] ####[facility] (BEAKER)[address] [place] [address] Eosinophils (Bld) [#/Vol] 0.43 10*3/uL Normal 0.00-0.50 [facility] Comment on above: Performed By: #### L [id number] ####[facility] (BEAKER)[address] [place] [address] Eosinophils/100 WBC (Bld) 5.0 % Normal 0.0-6.0 [facility] Comment on above: Performed By: #### L [id number] ####[facility] (BEAKER)[address] [place] [address] Erythrocyte distribution width (RBC) [Ratio] 15.1 % High 11.5-15.0 [facility] Comment on above: Performed By: #### L [id number] ####[facility] (BEAKER)[address] [place] [address] ERYTHROCYTE MEAN CORPUSCULAR HEMOGLOBIN CONCENTRATION (G/DL) BY AUTOMATED 31.1 g/dL Low 32.0-35.0 [facility] Comment on above: Performed By: #### L [id number] ####[facility] (BEAKER)[address] [place] [address] Hematocrit (Bld) [Volume fraction] 48.8 % Normal 39.0-55.0 [facility] Comment on above: Performed By: #### L [id number] ####[facility] (BEAKER)[address] [place] [address] Hemoglobin (Bld) [Mass/Vol] 15.2 g/dL Normal 13.0-17.0 [facility] Comment on above: Performed By: #### L [id number] ####[facility] (BEAKER)[address] [place] [address] Immature granulocytes (Bld) [#/Vol] 0.05 10*3/uL Normal 0.00-0.20 [facility] Comment on above: Performed By: #### L [id number] ####[facility] (BEAKER)[address] [place] [address] Immature granulocytes/100 WBC (Bld) 0.6 % Normal 0.0-1.0 [facility] Comment on above: Performed By: #### L [id number] ####[facility] (BEAKER)[address] [place] [address] Lymphocytes (Bld) [#/Vol] 1.59 10*3/uL Normal 1.20-4.00 [facility] Comment on above: Performed By: #### L [id number] ####[facility] (BEAKER)[address] [place] [address] Lymphocytes/100 WBC (Bld) 18.5 % Low 20.0-45.0 [facility] Comment on above: Performed By: #### L [id number] ####[facility] (BEAKER)[address] [place] [address] MCH (RBC) [Entitic mass] 28.8 pg Normal 27.0-33.0 [facility] Comment on above: Performed By: #### L [id number] ####[facility] (BEAKER)[address] [place] [address] MCV (RBC) [Entitic vol] 92.6 fL Normal 82.0-98.0 [facility] Comment on above: Performed By: #### L [id number] ####[facility] [place] [address] Monocytes (Bld) [#/Vol] 0.90 10*3/uL Normal 0.10-1.00 [facility] Comment on above: Performed By: #### L [id number] ####[facility] ([facility])[address] [place] [address] Monocytes/100 WBC (Bld) 10.5 % Normal 5.0-12.0 [facility] Comment on above: Performed By: #### L [id number] ####[facility] ([facility])[address] [place] [address] Neutrophils (Bld) [#/Vol] 5.56 10*3/uL Normal 1.60-7.60 [facility] Comment on above: Performed By: #### L [id number] ####[facility] ([facility])[address] [place] [address] Neutrophils/100 WBC (Bld) 64.8 % Normal 40.0-72.0 [facility] Comment on above: Performed By: #### L [id number] ####[facility] ([facility] [place] [address] NRBC (PER 100 WBCS) BY AUTOMATED COUNT 0.0 % Normal 0 [facility] Comment on above: Performed By: #### L [id number] ####[facility] ([facility] [place] [address] PLATELETS (10*3/UL) IN BLOOD AUTOMATED COUNT 208 10*3/uL Normal 150-400 [facility] Comment on above: Performed By: #### L [id number] ####[facility] ([facility] [place] [address] RBC (Bld) [#/Vol] 5.27 10*6/uL Normal 4.20-5.70 [facility] Comment on above: Performed By: #### L [id number] ####[facility] ([facility] [place] [address] WBC (Bld) [#/Vol] 8.58 10*3/uL Normal 4.00-10.60 [facility] Comment on above: Performed By: #### L [id number] ####[facility] ([facility])[address] [place] [address] DSon 09-09-2024 DS [facility] MAGNESIUMon 09-09-2024 Magnesium [Mass/Vol] 1.7 mg/dL Low 1.9-2.7 [facility] Comment on above: Performed By: #### L [id number] ####[facility] ([facility])[address] [place] [address] PHOSPHORUSon 09-09-2024 Magnesium [Mass/Vol] 3.2 mg/dL Normal 2.5-5.0 [facility] Comment on above: Performed By: #### L [id number] ####[facility] ([facility])[address] [place] [address] POCT GLUCOSE METER UNSOLICIT ED RESULTSon 09-09-2024 Glucose [Mass/Vol] 114 mg/dL High 70-[address] [facility] Comment on above: Order Comment: Waive d Testing in the ED is performed under the ED CLIA certificate #[id number]. Result Comment: ndub ois3 Performed By: #### L [id number] ####[facility] ([facility])[address] [place] [address] 30on 09-08-2024 30 [facility] 30 [facility] CBC WITH AUTO DIFFERENTIALon 09-08-2024 Basophils (Bld) [#/Vol] 0.06 10*3/uL Normal 0.00-0.20 [facility] Comment on above: Performed By: #### L [id number] ####[facility] ([facility])[address] [facility] [place] [address] Basophils/100 WBC (Bld) 0.8 % Normal 0.0-1.0 [facility] Comment on above: Performed By: #### L [id number] ####[facility] (BEAKER)[address] [place] [address] Eosinophils (Bld) [#/Vol] 0.43 10*3/uL Normal 0.00-0.50 [facility] Comment on above: Performed By: #### L [id number] ####[facility] ([facility])[address] [place] [address] Eosinophils/100 WBC (Bld) 5.5 % Normal 0.0-6.0 [facility] Comment on above: Performed By: #### L [id number] ####[facility] ([facility])[address] [place] [address] Erythrocyte distribution width (RBC) [Ratio] 15.2 % High 11.5-15.0 [facility] Comment on above: Performed By: #### L [id number] ####[facility] ([facility])[address] [place] [address] ERYTHROCYTE MEAN CORPUSCULAR HEMOGLOBIN CONCENTRATION (G/DL) BY AUTOMATED 30.8 g/dL Low 32.0-35.0 [facility] Comment on above: Performed By: #### L [id number] ####[facility] (BEAKER)[address] [place] [address] Hematocrit (Bld) [Volume fraction] 45.4 % Normal 39.0-55.0 [facility] Comment on above: Performed By: #### L [id number] ####[facility] (BEAKER)[address] [place] [address] Hemoglobin (Bld) [Mass/Vol] 14.0 g/dL Normal 13.0-17.0 [facility] Comment on above: Performed By: #### L [id number] ####[facility] (BEAKER)[address] [place] [address] Immature granulocytes (Bld) [#/Vol] 0.03 10*3/uL Normal 0.00-0.20 [facility] Comment on above: Performed By: #### L [id number] ####[facility] ([facility])[address] [place] [address] Immature granulocytes/100 WBC (Bld) 0.4 % Normal 0.0-1.0 [facility] Comment on above: Performed By: #### L [id number] ####[facility] ([facility])[address] [place] [address] Lymphocytes (Bld) [#/Vol] 1.82 10*3/uL Normal 1.20-4.00 [facility] Comment on above: Performed By: #### L [id number] ####[facility] ([facility])[address] [place] [address] Lymphocytes/100 WBC (Bld) 23.2 % Normal 20.0-45.0 [facility] Comment on above: Performed By: #### L [id number] ####[facility] ([facility])[address] [place] [address] MCH (RBC) [Entitic mass] 29.1 pg Normal 27.0-33.0 [facility] Comment on above: Performed By: #### L [id number] ####[facility] ([facility])[address] [place] [address] MCV (RBC) [Entitic vol] 94.4 fL Normal 82.0-98.0 [facility] Comment on above: Performed By: #### L [id number] ####[facility] ([facility] [place] [address] Monocytes (Bld) [#/Vol] 0.88 10*3/uL Normal 0.10-1.00 [facility] Comment on above: Performed By: #### L [id number] ####[facility] ([facility] [place] [address] Monocytes/100 WBC (Bld) 11.2 % Normal 5.0-12.0 [facility] Comment on above: Performed By: #### L [id number] ####[facility] (BEAKER)[address] [place] [address] Neutrophils (Bld) [#/Vol] 4.62 10*3/uL Normal 1.60-7.60 [facility] Comment on above: Performed By: #### L [id number] ####[facility] (BEAKER)[address] [place] [address] Neutrophils/100 WBC (Bld) 58.9 % Normal 40.0-72.0 [facility] Comment on above: Performed By: #### L [id number] ####[facility] ([facility])[address] [place] [address] NRBC (PER 100 WBCS) BY AUTOMATED COUNT 0.0 % Normal 0 [facility] Comment on above: Performed By: #### L [id number] ####[facility] ([facility])[address] [place] [address] PLATELETS (10*3/UL) IN BLOOD AUTOMATED COUNT 231 10*3/uL Normal 150-400 [facility] Comment on above: Performed By: #### L [id number] ####[facility] ([facility])[address] [place] [address] RBC (Bld) [#/Vol] 4.81 10*6/uL Normal 4.20-5.70 [facility] Comment on above: Performed By: #### L [id number] ####[facility] (BEAKER)[address] [place] [address] WBC (Bld) [#/Vol] 7.84 10*3/uL Normal 4.00-10.60 [facility] Comment on above: Performed By: #### L [id number] ####[facility] (BEAKER)[address] [place] [address] MAGNESIUMon 09-08-2024 Magnesium [Mass/Vol] 1.6 mg/dL Low 1.9-2.7 [facility] Comment on above: Performed By: #### L [id number] ####[facility] ([facility])[address] [place] [address] NURSNOTEon 09-08-2024 NURSNOTE Normal [facility] PHOSPHORUSon 09-08-2024 Magnesium [Mass/Vol] 3.4 mg/dL Normal 2.5-5.0 [facility] Comment on above: Performed By: #### L [id number] ####[facility] ([facility])[address] [place] [address] POCT GLUCOSE METER UNSOLICIT ED RESULTSon 09-08-2024 Glucose [Mass/Vol] 244 mg/dL High 70-[address] [facility] Comment on above: Order Comment: Waive d Testing in the ED is performed under the ED CLIA certificate #[id number]. Result Comment: droc kol Performed By: #### L [id number] ####[facility] ([facility])[address] [place] [address] Glucose [Mass/Vol] 165 mg/dL High 70-[address] [facility] Comment on above: Order Comment: Waive d Testing in the ED is performed under the ED CLIA certificate #[id number]. Result Comment: ndub ois3 Performed By: #### L [id number] ####[facility] ([facility])[address] [place] [address] Glucose [Mass/Vol] 110 mg/dL High 70-[address] [facility] Comment on above: Order Comment: Waive d Testing in the ED is performed under the ED CLIA certificate #[id number]. Result Comment: ndub ois3 Performed By: #### L [id number] ####[facility] ([facility])[address] [place] [address] Glucose [Mass/Vol] 157 mg/dL High 70-[address] [facility] Comment on above: Order Comment: Waive d Testing in the ED is performed under the ED CLIA certificate #[id number]. Result Comment: ndub [email or web address] Performed By: #### L [id number] ####[facility] ([employer])[address] [place] [address] 30on 09-07-2024 30 Normal [facility] 30 Normal [facility] BASIC METABOLIC PANELon 08-21 Anion gap [Moles/Vol] 9 mmol/L Normal 7-20 [facility] Comment on above: Performed By: #### L [id number] ####[facility] ([facility] [place] [address] Calcium [Mass/Vol] 9.6 mg/dL Normal 8.6-10.[address] [facility] Comment on above: Performed By: #### L [id number] ####[facility] ([facility] [place] [address] Chloride [Moles/Vol] 100 mmol/L Normal 98-107 [facility] Comment on above: Performed By: #### L [id number] ####[facility] ([facility] [place] [address] CO2 [Moles/Vol] 32 mmol/L High 21-31 [facility] Comment on above: Performed By: #### L [id number] ####[facility] ([facility] [place] [address] Creatinine [Mass/Vol] 0.78 mg/dL Normal 0.70-1.30 [facility] Comment on above: Performed By: #### L [id number] ####[facility] ([facility] [place] [address] GLOMERULAR FILTRATION RATE ML/MIN/1.73 SQ M.PREDICTED 99.0 mL/min/1.73m*2 Normal >60.0 [facility] Comment on above: Result Comment: [facility]???s estimated glomerular filtration rate (eGFR) will [...] of individuals. Performed By: #### L [id number] ####[facility] ([facility])[address] [place] [address] Glucose [Mass/Vol] 153 mg/dL High 70-[address] [facility] Comment on above: Performed By: #### L [id number] ####[facility] ([facility])[address] [place] [address] Potassium [Moles/Vol] 4.1 mmol/L Normal 3.5-5.1 [facility] Comment on above: Performed By: #### L [id number] ####[facility] ([facility])[address] [place] [address] Sodium [Moles/Vol] 137 mmol/L Normal 136-[address] [facility] Comment on above: Performed By: #### L [id number] ####[facility] ([facility])[address] [place] [address] Urea nitrogen [Mass/Vol] 19 mg/dL Normal 7-25 [facility] Comment on above: Performed By: #### L [id number] ####[facility] ([facility])[address] [place] [address] UREA NITROGEN/CREATININE (MASS RATIO) IN SER/PLAS 24.4 Normal [facility] Comment on above: Performed By: #### L [id number] ####[facility] ([facility])[address] [place] [address] CBC WITH AUTO DIFFERENTIALon 09-07-2024 Basophils (Bld) [#/Vol] 0.06 10*3/uL Normal 0.00-0.20 [facility] Comment on above: Performed By: #### L [id number] ####[facility] ([facility])[address] [place] [address] Basophils/100 WBC (Bld) 0.8 % Normal 0.0-1.0 [facility] Comment on above: Performed By: #### L [id number] ####[facility] (BEAKER)[address] [place] [address] Eosinophils (Bld) [#/Vol] 0.49 10*3/uL Normal 0.00-0.50 [facility] Comment on above: Performed By: #### L [id number] ####[facility] (BEAKER)[address] [place] [address] Eosinophils/100 WBC (Bld) 6.8 % High 0.0-6.0 [facility] Comment on above: Performed By: #### L [id number] ####[facility] ([facility] [place] [address] Erythrocyte distribution width (RBC) [Ratio] 15.3 % High 11.5-15.0 [facility] Comment on above: Performed By: #### L [id number] ####[facility] ([facility])[address] [place] [address] ERYTHROCYTE MEAN CORPUSCULAR HEMOGLOBIN CONCENTRATION (G/DL) BY AUTOMATED 30.9 g/dL Low 32.0-35.0 [facility] Comment on above: Performed By: #### L [id number] ####[facility] ([facility])[address] [place] [address] Hematocrit (Bld) [Volume fraction] 45.9 % Normal 39.0-55.0 [facility] Comment on above: Performed By: #### L [id number] ####[facility] (BEAKER)[address] [place] [address] Hemoglobin (Bld) [Mass/Vol] 14.2 g/dL Normal 13.0-17.0 [facility] Comment on above: Performed By: #### L [id number] ####[facility] (BEAKER)[address] [place] [address] Immature granulocytes (Bld) [#/Vol] 0.04 10*3/uL Normal 0.00-0.20 [facility] Comment on above: Performed By: #### L [id number] ####[facility] (BEAKER)[address] [place] [address] Immature granulocytes/100 WBC (Bld) 0.6 % Normal 0.0-1.0 [facility] Comment on above: Performed By: #### L [id number] ####[facility] (BEAKER)[address] [place] [address] Lymphocytes (Bld) [#/Vol] 1.82 10*3/uL Normal 1.20-4.00 [facility] Comment on above: Performed By: #### L [id number] ####[facility] (BEAKER)[address] [place] [address] Lymphocytes/100 WBC (Bld) 25.3 % Normal 20.0-45.0 [facility] Comment on above: Performed By: #### L [id number] ####[facility] (BEAKER)[address] [place] [address] MCH (RBC) [Entitic mass] 29.2 pg Normal 27.0-33.0 [facility] Comment on above: Performed By: #### L [id number] ####[facility] (BEAKER)[address] [place] [address] MCV (RBC) [Entitic vol] 94.4 fL Normal 82.0-98.0 [facility] Comment on above: Performed By: #### L [id number] ####[facility] (BEAKER)[address] [place] [address] Monocytes (Bld) [#/Vol] 0.74 10*3/uL Normal 0.10-1.00 [facility] Comment on above: Performed By: #### L [id number] ####[facility] (BEAKER)[address] [place] [address] Monocytes/100 WBC (Bld) 10.3 % Normal 5.0-12.0 [facility] Comment on above: Performed By: #### L [id number] ####[facility] (BEAKER)[address] [place] [address] Neutrophils (Bld) [#/Vol] 4.04 10*3/uL Normal 1.60-7.60 [facility] Comment on above: Performed By: #### L [id number] ####[facility] ([facility] [address] Neutrophils/100 WBC (Bld) 56.2 % Normal 40.0-72.0 [facility] Comment on above: Performed By: #### L [id number] ####[facility] ([facility])[address] [address] NRBC (PER 100 WBCS) BY AUTOMATED COUNT 0.0 % Normal 0 [facility] Comment on above: Performed By: #### L [id number] ####[facility] ([facility])[address] [address] PLATELETS (10*3/UL) IN BLOOD AUTOMATED COUNT 234 10*3/uL Normal 150-400 [facility] Comment on above: Performed By: #### L [id number] ####[facility] ([facility])[address] [address] RBC (Bld) [#/Vol] 4.86 10*6/uL Normal 4.20-5.70 [facility] Comment on above: Performed By: #### L [id number] ####[facility] ([facility])[address] [address] WBC (Bld) [#/Vol] 7.19 10*3/uL Normal 4.00-10.60 [facility] Comment on above: Performed By: #### L [id number] ####[facility] ([facility] [address] MAGNESIUMon 09-07-2024 Magnesium [Mass/Vol] 1.7 mg/dL Low 1.9-2.7 [facility] Comment on above: Performed By: #### L [id number] ####[facility] ([facility] [place] [address] NURSNOTEon 09-07-2024 NURSNOTE Signed off to Ian engel RN [facility] NURSNOTE HOB up @ 40 degrees, NO c/o of pain, or SOB at this time Urinal at bedside Call light within reach IV INT'd, intact, no redness noted Pulse ox--97% O 2 cont. On pt. Per nasal cannula @ 4 L/min NC Telemetry cont. On pt [facility] NURSNOTE [facility] NURSNOTE Tried to call Elias, pt's brother, no answer, still, at this time, 3rd attempt [facility] NURSNOTE [facility] NURSNOTE Pt's family brought him a hamburger last night, and the pt. Is eating it now. Pt. Encouraged not to eat, since the hamburger has been sitting out all night. Pt. Cont. To eat burger. [facility] NURSNOTE Eyes closed resp. Easy @ 18/min Pulse ox--98% Telemetry cont. On pt [facility] Orders Onlyon 09-07-2024 Orders Only [id number] Tyler Mckinney 1960 M Date Provider Department Center 09/07/[id number], JENN*[facility] [place] [facility] No family history on file [facility] PHOSPHORUSon 09-07-2024 Magnesium [Mass/Vol] 3.5 mg/dL Normal 2.5-5.0 [facility] Comment on above: Performed By: #### L [id number] ####[facility] (BEAKER)[address] [place] [address] POCT GLUCOSE METER UNSOLICIT ED RESULTSon 09-07-2024 Glucose [Mass/Vol] 200 mg/dL High 70-[address] [facility] Comment on above: Order Comment: Waive d Testing in the ED is performed under the ED CLIA certificate #[id number]. Result Comment: droc kol Performed By: #### L [id number] ####[facility] (BEAKER)[address] [place] [address] Glucose [Mass/Vol] 211 mg/dL High 70-[address] [facility] Comment on above: Order Comment: Waive d Testing in the ED is performed under the ED CLIA certificate #[id number]. Result Comment: awul ff3 Performed By: #### L [id number] ####[facility] (BEAKER)[address] [place] [address] Glucose [Mass/Vol] 298 mg/dL High 70-[address] [facility] Comment on above: Order Comment: Waive d Testing in the ED is performed under the ED CLIA certificate #[id number]. Result Comment: awul ff3 Performed By: #### L [id number] ####[facility] ([facility])[address] [place] [address] Glucose [Mass/Vol] 155 mg/dL High 70-[address] [facility] Comment on above: Order Comment: Waive d Testing in the ED is performed under the ED CLIA certificate #[id number]. Result Comment: awul ff3 Performed By: #### L [id number] ####[facility] ([facility])[address] [place] [address] 30on 09-06-2024 30 Normal [facility] 30 Normal [facility] BASIC METABOLIC PANELon 08-21 Anion gap [Moles/Vol] 11 mmol/L Normal 7-20 [facility] Comment on above: Performed By: #### L [id number] ####[facility] [place] [address] Calcium [Mass/Vol] 9.8 mg/dL Normal 8.6-10.[address] [facility] Comment on above: Performed By: #### L [id number] ####[facility] (BEAKER)[address] [place] [address] Chloride [Moles/Vol] 98 mmol/L Normal 98-107 [facility] Comment on above: Performed By: #### L [id number] ####[facility] (BEAKER)[address] [place] [address] CO2 [Moles/Vol] 31 mmol/L Normal 21-31 [facility] Comment on above: Performed By: #### L [id number] ####[facility] ([facility])[address] [place] [address] Creatinine [Mass/Vol] 0.90 mg/dL Normal 0.70-1.30 [facility] Comment on above: Performed By: #### L [id number] ####[facility] ([facility])[address] [place] [address] GLOMERULAR FILTRATION RATE ML/MIN/1.73 SQ M.PREDICTED 94.8 mL/min/1.73m*2 Normal >60.0 [facility] Comment on above: Result Comment: [facility]???s estimated glomerular filtration rate (eGFR) will [...] of individuals. Performed By: #### L [id number] ####[facility] ([facility])[address] [place] [address] Glucose [Mass/Vol] 244 mg/dL High 70-[address] [facility] Comment on above: Performed By: #### L [id number] ####[facility] ([facility])[address] [place] [address] Potassium [Moles/Vol] 3.9 mmol/L Normal 3.5-5.1 [facility] Comment on above: Performed By: #### L [id number] ####[facility] ([facility])[address] [place] [address] Sodium [Moles/Vol] 136 mmol/L Normal 136-[address] [facility] Comment on above: Performed By: #### L [id number] ####[facility] ([facility])[address] [place] [address] Urea nitrogen [Mass/Vol] 18 mg/dL Normal 7-25 [facility] Comment on above: Performed By: #### L [id number] ####[facility] ([facility])[address] [place] [address] UREA NITROGEN/CREATININE (MASS RATIO) IN SER/PLAS 20.0 Normal [facility] Comment on above: Performed By: #### L [id number] ####[facility] ([facility])[address] [place] [address] CBC WITH AUTO DIFFERENTIALon 09-06-2024 Basophils (Bld) [#/Vol] 0.07 10*3/uL Normal 0.00-0.20 [facility] Comment on above: Performed By: #### L [id number] ####[facility] ([facility])[address] [place], [place] [address] Basophils/100 WBC (Bld) 1.0 % Normal 0.0-1.0 [facility] Comment on above: Performed By: #### L [id number] ####[facility] ([facility])[address] [place] [address] Eosinophils (Bld) [#/Vol] 0.40 10*3/uL Normal 0.00-0.50 [facility] Comment on above: Performed By: #### L [id number] ####[facility] [place] [address] Eosinophils/100 WBC (Bld) 5.9 % Normal 0.0-6.0 [facility] Comment on above: Performed By: #### L [id number] ####[facility] [place] [address] Erythrocyte distribution width (RBC) [Ratio] 15.2 % High 11.5-15.0 [facility] Comment on above: Performed By: #### L [id number] ####[facility] ([facility])[address] [place] [address] ERYTHROCYTE MEAN CORPUSCULAR HEMOGLOBIN CONCENTRATION (G/DL) BY AUTOMATED 30.7 g/dL Low 32.0-35.0 [facility] Comment on above: Performed By: #### L [id number] ####[facility] ([facility])[address] [place] [address] Hematocrit (Bld) [Volume fraction] 47.3 % Normal 39.0-55.0 [facility] Comment on above: Performed By: #### L [id number] ####[facility] ([facility])[address] [place] [address] Hemoglobin (Bld) [Mass/Vol] 14.5 g/dL Normal 13.0-17.0 [facility] Comment on above: Performed By: #### L [id number] ####[facility] ([facility])[address] [place] [address] Immature granulocytes (Bld) [#/Vol] 0.05 10*3/uL Normal 0.00-0.20 [facility] Comment on above: Performed By: #### L [id number] ####[facility] ([facility])[address] [place] [address] Immature granulocytes/100 WBC (Bld) 0.7 % Normal 0.0-1.0 [facility] Comment on above: Performed By: #### L [id number] ####[facility] ([facility])[address] [place] [address] Lymphocytes (Bld) [#/Vol] 1.52 10*3/uL Normal 1.20-4.00 [facility] Comment on above: Performed By: #### L [id number] ####[facility] ([facility])[address] [place] [address] Lymphocytes/100 WBC (Bld) 22.5 % Normal 20.0-45.0 [facility] Comment on above: Performed By: #### L [id number] ####[facility] ([facility])[address] [place] [address] MCH (RBC) [Entitic mass] 29.1 pg Normal 27.0-33.0 [facility] Comment on above: Performed By: #### L [id number] ####[facility] ([facility] [place] [address] MCV (RBC) [Entitic vol] 95.0 fL Normal 82.0-98.0 [facility] Comment on above: Performed By: #### L [id number] ####[facility] ([facility] [place] [address] Monocytes (Bld) [#/Vol] 0.74 10*3/uL Normal 0.10-1.00 [facility] Comment on above: Performed By: #### L [id number] ####[facility] ([facility])[address] [place] [address] Monocytes/100 WBC (Bld) 10.9 % Normal 5.0-12.0 [facility] Comment on above: Performed By: #### L [id number] ####[facility] ([facility] [place] [address] Neutrophils (Bld) [#/Vol] 3.98 10*3/uL Normal 1.60-7.60 [facility] Comment on above: Performed By: #### L [id number] ####[facility] ([facility])[address] [place] [address] Neutrophils/100 WBC (Bld) 59.0 % Normal 40.0-72.0 [facility] Comment on above: Performed By: #### L [id number] ####[facility] ([facility])[address] [place] [address] NRBC (PER 100 WBCS) BY AUTOMATED COUNT 0.0 % Normal 0 [facility] Comment on above: Performed By: #### L [id number] ####[facility] ([facility])[address] [place] [address] PLATELETS (10*3/UL) IN BLOOD AUTOMATED COUNT 251 10*3/uL Normal 150-400 [facility] Comment on above: Performed By: #### L [id number] ####[facility] ([facility])[address] [place] [address] RBC (Bld) [#/Vol] 4.98 10*6/uL Normal 4.20-5.70 [facility] Comment on above: Performed By: #### L [id number] ####[facility] ([facility])[address] [place] [address] WBC (Bld) [#/Vol] 6.76 10*3/uL Normal 4.00-10.60 [facility] Comment on above: Performed By: #### L [id number] ####[facility] ([facility])[address] [place] [address] MAGNESIUMon 09-06-2024 Magnesium [Mass/Vol] 1.6 mg/dL Low 1.9-2.7 [facility] Comment on above: Performed By: #### L [id number] ####[facility] ([facility])[address] [place] [address] NURSNOTEon 09-06-2024 NURSNOTE Signed off to Ian engel RN--with bedside rounding Pt. Cont. To sit up in a chair at bedside Call light within reach [facility] NURSNOTE [facility] NURSNOTE Pt refused to go yeni k to bed at this time Pt. Cont. To sit up in a chair at bedside No c/o of SOB or nausea at this time Resp. Easy @ 18/min [facility] PHOSPHORUSon 09-06-2024 Magnesium [Mass/Vol] 3.4 mg/dL Normal 2.5-5.0 [facility] Comment on above: Performed By: #### L [id number] ####[facility] ([facility])[address] [place] [address] POCT GLUCOSE METER UNSOLICIT ED RESULTSon 09-06-2024 Glucose [Mass/Vol] 255 mg/dL High 70-[address] [facility] Comment on above: Order Comment: Waive d Testing in the ED is performed under the ED CLIA certificate #[id number]. Result Comment: [email or web address] Performed By: #### L [id number] ####[facility] ([facility])[address] [place] [address] Glucose [Mass/Vol] 208 mg/dL High 70-[address] [facility] Comment on above: Order Comment: Waive d Testing in the ED is performed under the ED CLIA certificate #[id number]. Result Comment: [email or web address] Performed By: #### L [id number] ####[facility] ([facility])[address] [place] [address] Glucose [Mass/Vol] 173 mg/dL High 70-[address] [facility] Comment on above: Order Comment: Waive d Testing in the ED is performed under the ED CLIA certificate #[id number]. Result Comment: [email or web address] Performed By: #### L [id number] ####[facility] ([facility])[address] [place] [address] Glucose [Mass/Vol] 210 mg/dL High 70-[address] [facility] Comment on above: Order Comment: Waive d Testing in the ED is performed under the ED CLIA certificate #[id number]. Result Comment: [email or web address] Performed By: #### L [id number] ####[facility] ([facility])[address] [place] [address] BASIC METABOLIC PANELon 08-21 Anion gap [Moles/Vol] 8 mmol/L Normal 7-20 [facility] Comment on above: Performed By: #### L [id number] ####[facility] ([facility])[address] [place] [address] Calcium [Mass/Vol] 9.9 mg/dL Normal 8.6-10.[address] [facility] Comment on above: Performed By: #### L [id number] ####[facility] ([facility])[address] [place] [address] Chloride [Moles/Vol] 98 mmol/L Normal 98-107 [facility] Comment on above: Performed By: #### L [id number] ####[facility] ([facility])[address] [place] [address] CO2 [Moles/Vol] 33 mmol/L High 21-31 [facility] Comment on above: Performed By: #### L [id number] ####[facility] ([facility])[address] [place] [address] Creatinine [Mass/Vol] 0.90 mg/dL Normal 0.70-1.30 [facility] Comment on above: Performed By: #### L [id number] ####[facility] ([facility])[address] [place] [address] GLOMERULAR FILTRATION RATE ML/MIN/1.73 SQ M.PREDICTED 94.8 mL/min/1.73m*2 Normal >60.0 [facility] Comment on above: Result Comment: [facility]???s estimated glomerular filtration rate (eGFR) will [...] of individuals. Performed By: #### L [id number] ####[facility] ([facility] [place] [address] Glucose [Mass/Vol] 142 mg/dL High 70-[address] [facility] Comment on above: Performed By: #### L [id number] ####[facility] ([facility] [place] [address] Potassium [Moles/Vol] 4.1 mmol/L Normal 3.5-5.1 [facility] Comment on above: Performed By: #### L [id number] ####[facility] ([facility])[address] [place] [address] Sodium [Moles/Vol] 135 mmol/L Low 136-[address] [facility] Comment on above: Performed By: #### L [id number] ####[facility] ([facility])[address] [place] [address] Urea nitrogen [Mass/Vol] 19 mg/dL Normal 7-25 [facility] Comment on above: Performed By: #### L [id number] ####[facility] ([facility])[address] [place] [address] UREA NITROGEN/CREATININE (MASS RATIO) IN SER/PLAS 21.1 Normal [facility] Comment on above: Performed By: #### L [id number] ####[facility] ([facility])[address] [place] [address] CBC WITH AUTO DIFFERENTIALon 09-05-2024 Basophils (Bld) [#/Vol] 0.07 10*3/uL Normal 0.00-0.20 [facility] Comment on above: Performed By: #### L [id number] ####[facility] ([facility])[address] [place] [address] Basophils/100 WBC (Bld) 0.9 % Normal 0.0-1.0 [facility] Comment on above: Performed By: #### L [id number] ####[facility] ([facility])[address] [place] [address] Eosinophils (Bld) [#/Vol] 0.38 10*3/uL Normal 0.00-0.50 [facility] Comment on above: Performed By: #### L [id number] ####[facility] ([facility])[address] [facility] [place] [address] Eosinophils/100 WBC (Bld) 5.0 % Normal 0.0-6.0 [facility] Comment on above: Performed By: #### L [id number] ####[facility] ([facility])[address] [place] [address] Erythrocyte distribution width (RBC) [Ratio] 15.2 % High 11.5-15.0 [facility] Comment on above: Performed By: #### L [id number] ####[facility] ([facility] [place] [address] ERYTHROCYTE MEAN CORPUSCULAR HEMOGLOBIN CONCENTRATION (G/DL) BY AUTOMATED 31.4 g/dL Low 32.0-35.0 [facility] Comment on above: Performed By: #### L [id number] ####[facility] ([facility])[address] [place] [address] Hematocrit (Bld) [Volume fraction] 47.1 % Normal 39.0-55.0 [facility] Comment on above: Performed By: #### L [id number] ####[facility] ([facility] [place] [address] Hemoglobin (Bld) [Mass/Vol] 14.8 g/dL Normal 13.0-17.0 [facility] Comment on above: Performed By: #### L [id number] ####[facility] ([facility])[address] [place] [address] Immature granulocytes (Bld) [#/Vol] 0.06 10*3/uL Normal 0.00-0.20 [facility] Comment on above: Performed By: #### L [id number] ####[facility] ([facility])[address] [place] [address] Immature granulocytes/100 WBC (Bld) 0.8 % Normal 0.0-1.0 [facility] Comment on above: Performed By: #### L [id number] ####[facility] ([facility])[address] [place] [address] Lymphocytes (Bld) [#/Vol] 1.99 10*3/uL Normal 1.20-4.00 [facility] Comment on above: Performed By: #### L [id number] ####[facility] ([facility])[address] [place] [address] Lymphocytes/100 WBC (Bld) 26.0 % Normal 20.0-45.0 [facility] Comment on above: Performed By: #### L [id number] ####[facility] ([facility])[address] [place] [address] MCH (RBC) [Entitic mass] 28.8 pg Normal 27.0-33.0 [facility] Comment on above: Performed By: #### L [id number] ####[facility] ([facility])[address] [place] [address] MCV (RBC) [Entitic vol] 91.6 fL Normal 82.0-98.0 [facility] Comment on above: Performed By: #### L [id number] ####[facility] ([facility])[address] [place] [address] Monocytes (Bld) [#/Vol] 0.77 10*3/uL Normal 0.10-1.00 [facility] Comment on above: Performed By: #### L [id number] ####[facility] ([facility])[address] [place] [address] Monocytes/100 WBC (Bld) 10.1 % Normal 5.0-12.0 [facility] Comment on above: Performed By: #### L [id number] ####[facility] ([facility])[address] [place] [address] Neutrophils (Bld) [#/Vol] 4.39 10*3/uL Normal 1.60-7.60 [facility] Comment on above: Performed By: #### L [id number] ####[facility] ([facility])[address] [place] [address] Neutrophils/100 WBC (Bld) 57.2 % Normal 40.0-72.0 [facility] Comment on above: Performed By: #### L [id number] ####[facility] ([facility])[address] [place] [address] NRBC (PER 100 WBCS) BY AUTOMATED COUNT 0.0 % Normal 0 [facility] Comment on above: Performed By: #### L [id number] ####[facility] ([facility])[address] [place] [address] PLATELETS (10*3/UL) IN BLOOD AUTOMATED COUNT 274 10*3/uL Normal 150-400 [facility] Comment on above: Performed By: #### L [id number] ####[facility] ([facility])[address] [place] [address] RBC (Bld) [#/Vol] 5.14 10*6/uL Normal 4.20-5.70 [facility] Comment on above: Performed By: #### L [id number] ####[facility] ([facility])[address] [place] [address] WBC (Bld) [#/Vol] 7.66 10*3/uL Normal 4.00-10.60 [facility] Comment on above: Performed By: #### L [id number] ####[facility] ([facility])[address] [place] [address] MAGNESIUMon 09-05-2024 Magnesium [Mass/Vol] 1.6 mg/dL Low 1.9-2.7 [facility] Comment on above: Performed By: #### L [id number] ####[facility] ([facility])[address] [place] [address] PHOSPHORUSon 09-05-2024 Magnesium [Mass/Vol] 2.8 mg/dL Normal 2.5-5.0 [facility] Comment on above: Performed By: #### L [id number] ####[facility] ([facility])[address] [place] [address] POCT GLUCOSE METER UNSOLICIT ED RESULTSon 09-05-2024 Glucose [Mass/Vol] 221 mg/dL High 70-[address] [facility] Comment on above: Order Comment: Waive d Testing in the ED is performed under the ED CLIA certificate #[id number]. Result Comment: [email or web address] Performed By: #### L [id number] ####[facility] ([facility])[address] [place] [address] Glucose [Mass/Vol] 204 mg/dL High 70-[address] [facility] Comment on above: Order Comment: Waive d Testing in the ED is performed under the ED CLIA certificate #[id number]. Result Comment: [email or web address] Performed By: #### L [id number] ####[facility] ([facility])[address] [place] [address] Glucose [Mass/Vol] 222 mg/dL High 70-[address] [facility] Comment on above: Order Comment: Waive d Testing in the ED is performed under the ED CLIA certificate #[id number]. Result Comment: [email or web address] Performed By: #### L [id number] ####[facility] ([facility])[address] [place] [address] Glucose [Mass/Vol] 141 mg/dL High 70-[address] [facility] Comment on above: Order Comment: Waive d Testing in the ED is performed under the ED CLIA certificate #[id number]. Result Comment: [email or web address] Performed By: #### L [id number] ####[facility] ([facility])[address] [place] [address] 30on 09-04-2024 30 Normal [facility] BASIC METABOLIC PANELon 08-21 Anion gap [Moles/Vol] 7 mmol/L Normal 7-20 [facility] Comment on above: Performed By: #### L [id number] ####[facility] ([facility])[address] [place] [address] Calcium [Mass/Vol] 9.6 mg/dL Normal 8.6-10.[address] [facility] Comment on above: Performed By: #### L [id number] ####[facility] ([facility])[address] [place] [address] Chloride [Moles/Vol] 98 mmol/L Normal 98-107 [facility] Comment on above: Performed By: #### L [id number] ####[facility] ([facility])[address] [place] [address] CO2 [Moles/Vol] 35 mmol/L High 21-31 [facility] Comment on above: Performed By: #### L [id number] ####[facility] ([facility])[address] [place] [address] Creatinine [Mass/Vol] 0.88 mg/dL Normal 0.70-1.30 [facility] Comment on above: Performed By: #### L [id number] ####[facility] ([facility])[address] [place] [address] GLOMERULAR FILTRATION RATE ML/MIN/1.73 SQ M.PREDICTED 95.4 mL/min/1.73m*2 Normal >60.0 [facility] Comment on above: Result Comment: [facility]???s estimated glomerular filtration rate (eGFR) will [...] of individuals. Performed By: #### L [id number] ####[facility] ([facility])[address] [place] [address] Glucose [Mass/Vol] 155 mg/dL High 70-[address] [facility] Comment on above: Performed By: #### L [id number] ####[facility] ([facility])[address] [place] [address] Potassium [Moles/Vol] 4.3 mmol/L Normal 3.5-5.1 [facility] Comment on above: Performed By: #### L [id number] ####[facility] ([facility])[address] [facility] [place] [address] Sodium [Moles/Vol] 136 mmol/L Normal 136-[address] [facility] Comment on above: Performed By: #### L [id number] ####[facility] ([facility])[address] [place] [address] Urea nitrogen [Mass/Vol] 22 mg/dL Normal 7-25 [facility] Comment on above: Performed By: #### L [id number] ####[facility] ([facility])[address] [place] [address] UREA NITROGEN/CREATININE (MASS RATIO) IN SER/PLAS 25.0 Normal [facility] Comment on above: Performed By: #### L [id number] ####[facility] ([facility])[address] [place] [address] CBC WITH AUTO DIFFERENTIALon 09-04-2024 Basophils (Bld) [#/Vol] 0.06 10*3/uL Normal 0.00-0.20 [facility] Comment on above: Performed By: #### L [id number] ####[facility] ([facility])[address] [place] [address] Basophils/100 WBC (Bld) 1.0 % Normal 0.0-1.0 [facility] Comment on above: Performed By: #### L [id number] ####[facility] ([facility])[address] [place] [address] Eosinophils (Bld) [#/Vol] 0.38 10*3/uL Normal 0.00-0.50 [facility] Comment on above: Performed By: #### L [id number] ####[facility] [place] [address] Eosinophils/100 WBC (Bld) 6.1 % High 0.0-6.0 [facility] Comment on above: Performed By: #### L [id number] ####[facility] ([facility])[address] [place] [address] Erythrocyte distribution width (RBC) [Ratio] 15.2 % High 11.5-15.0 [facility] Comment on above: Performed By: #### L [id number] ####[facility] ([facility])[address] [place] [address] ERYTHROCYTE MEAN CORPUSCULAR HEMOGLOBIN CONCENTRATION (G/DL) BY AUTOMATED 30.6 g/dL Low 32.0-35.0 [facility] Comment on above: Performed By: #### L [id number] ####[facility] [place] [address] Hematocrit (Bld) [Volume fraction] 48.4 % Normal 39.0-55.0 [facility] Comment on above: Performed By: #### L [id number] ####[facility] ([facility])[address] [place] [address] Hemoglobin (Bld) [Mass/Vol] 14.8 g/dL Normal 13.0-17.0 [facility] Comment on above: Performed By: #### L [id number] ####[facility] ([facility] [place] [address] Immature granulocytes (Bld) [#/Vol] 0.04 10*3/uL Normal 0.00-0.20 [facility] Comment on above: Performed By: #### L [id number] ####[facility] ([facility] [place] [address] Immature granulocytes/100 WBC (Bld) 0.6 % Normal 0.0-1.0 [facility] Comment on above: Performed By: #### L [id number] ####[facility] ([facility])[address] [place] [address] Lymphocytes (Bld) [#/Vol] 1.68 10*3/uL Normal 1.20-4.00 [facility] Comment on above: Performed By: #### L [id number] ####[facility] ([facility])[address] [place] [address] Lymphocytes/100 WBC (Bld) 27.1 % Normal 20.0-45.0 [facility] Comment on above: Performed By: #### L [id number] ####[facility] (BEAKER)[address] [place] [address] MCH (RBC) [Entitic mass] 28.6 pg Normal 27.0-33.0 [facility] Comment on above: Performed By: #### L [id number] ####[facility] [place] [address] MCV (RBC) [Entitic vol] 93.6 fL Normal 82.0-98.0 [facility] Comment on above: Performed By: #### L [id number] ####[facility] [place] [address] Monocytes (Bld) [#/Vol] 0.74 10*3/uL Normal 0.10-1.00 [facility] Comment on above: Performed By: #### L [id number] ####[facility] ([facility])[address] [place] [address] Monocytes/100 WBC (Bld) 11.9 % Normal 5.0-12.0 [facility] Comment on above: Performed By: #### L [id number] ####[facility] ([facility])[address] [place] [address] Neutrophils (Bld) [#/Vol] 3.31 10*3/uL Normal 1.60-7.60 [facility] Comment on above: Performed By: #### L [id number] ####[facility] ([facility])[address] [place] [address] Neutrophils/100 WBC (Bld) 53.3 % Normal 40.0-72.0 [facility] Comment on above: Performed By: #### L [id number] ####[facility] ([facility] [place] [address] NRBC (PER 100 WBCS) BY AUTOMATED COUNT 0.0 % Normal 0 [facility] Comment on above: Performed By: #### L [id number] ####[facility] ([facility] [place] [address] PLATELETS (10*3/UL) IN BLOOD AUTOMATED COUNT 254 10*3/uL Normal 150-400 [facility] Comment on above: Performed By: #### L [id number] ####[facility] ([facility] [place] [address] RBC (Bld) [#/Vol] 5.17 10*6/uL Normal 4.20-5.70 [facility] Comment on above: Performed By: #### L [id number] ####[facility] ([facility])[address] [place] [address] WBC (Bld) [#/Vol] 6.21 10*3/uL Normal 4.00-10.60 [facility] Comment on above: Performed By: #### L [id number] ####[facility] ([facility])[address] [place] [address] POCT GLUCOSE METER UNSOLICIT ED RESULTSon 09-04-2024 Glucose [Mass/Vol] 219 mg/dL High 70-[address] [facility] Comment on above: Order Comment: Waive d Testing in the ED is performed under the ED CLIA certificate #[id number]. Result Comment: [email or web address] Performed By: #### L [id number] ####[facility] ([facility])[address] [place] [address] Glucose [Mass/Vol] 156 mg/dL High 70-[address] [facility] Comment on above: Order Comment: Waive d Testing in the ED is performed under the ED CLIA certificate #[id number]. Result Comment: [email or web address] ff3 Performed By: #### L [id number] ####[facility] ([facility])[address] [place] [address] Glucose [Mass/Vol] 190 mg/dL High 70-[address] [facility] Comment on above: Order Comment: Waive d Testing in the ED is performed under the ED CLIA certificate #[id number]. Result Comment: [email or web address] [email or web address] Performed By: #### L [id number] ####[facility] ([facility] [place] [address] Glucose [Mass/Vol] 149 mg/dL High 70-[address] [facility] Comment on above: Order Comment: Waive d Testing in the ED is performed under the ED CLIA certificate #[id number]. Result Comment: [email or web address] [email or web address] Performed By: #### L [id number] ####[facility] (BEAKER)[address] [place] [address] 30on 09-03-2024 30 Normal [facility] BASIC METABOLIC PANELon 08-21 Anion gap [Moles/Vol] 11 mmol/L Normal 7-20 [facility] Comment on above: Performed By: #### L [id number] ####[facility] (BEAKER)[address] [place] [address] Calcium [Mass/Vol] 9.7 mg/dL Normal 8.6-10.[address] [facility] Comment on above: Performed By: #### L [id number] ####[facility] (BEAKER)[address] [place] [address] Chloride [Moles/Vol] 96 mmol/L Low 98-107 [facility] Comment on above: Performed By: #### L [id number] ####[facility] (BEAKER)[address] [place] [address] CO2 [Moles/Vol] 33 mmol/L High 21-31 [facility] Comment on above: Performed By: #### L [id number] ####[facility] (BEAKER)[address] [place] [address] Creatinine [Mass/Vol] 0.87 mg/dL Normal 0.70-1.30 [facility] Comment on above: Performed By: #### L [id number] ####[facility] (BEAKER)[address] [place] [address] GLOMERULAR FILTRATION RATE ML/MIN/1.73 SQ M.PREDICTED 95.8 mL/min/1.73m*2 Normal >60.0 [facility] Comment on above: Result Comment: The [facility]???s estimated glomerular filtration rate (eGFR) will [...] of individuals. Performed By: #### L [id number] ####[facility] ([facility])[address] [place] [address] Glucose [Mass/Vol] 161 mg/dL High 70-[address] [facility] Comment on above: Performed By: #### L [id number] ####[facility] ([facility])[address] [place] [address] Potassium [Moles/Vol] 4.2 mmol/L Normal 3.5-5.1 [facility] Comment on above: Performed By: #### L [id number] ####[facility] ([facility])[address] [place] [address] Sodium [Moles/Vol] 136 mmol/L Normal 136-[address] [facility] Comment on above: Performed By: #### L [id number] ####[facility] ([facility])[address] [place] [address] Urea nitrogen [Mass/Vol] 23 mg/dL Normal 7-25 [facility] Comment on above: Performed By: #### L [id number] ####[facility] ([facility])[address] [place] [address] UREA NITROGEN/CREATININE (MASS RATIO) IN SER/PLAS 26.4 Normal [facility] Comment on above: Performed By: #### L [id number] ####[facility] ([facility])[address] [place] [address] CBC WITH AUTO DIFFERENTIALon 09-03-2024 Basophils (Bld) [#/Vol] 0.07 10*3/uL Normal 0.00-0.20 [facility] Comment on above: Performed By: #### L [id number] ####[facility] ([facility])[address] [place] [address] Basophils/100 WBC (Bld) 0.8 % Normal 0.0-1.0 [facility] Comment on above: Performed By: #### L [id number] ####[facility] (BEAKER)[address] [place] [address] Eosinophils (Bld) [#/Vol] 0.40 10*3/uL Normal 0.00-0.50 [facility] Comment on above: Performed By: #### L [id number] ####[facility] (BEAKER)[address] [place] [address] Eosinophils/100 WBC (Bld) 4.8 % Normal 0.0-6.0 [facility] Comment on above: Performed By: #### L [id number] ####[facility] (BEAKER)[address] [place] [address] Erythrocyte distribution width (RBC) [Ratio] 15.3 % High 11.5-15.0 [facility] Comment on above: Performed By: #### L [id number] ####[facility] (BEAKER)[address] [place] [address] ERYTHROCYTE MEAN CORPUSCULAR HEMOGLOBIN CONCENTRATION (G/DL) BY AUTOMATED 31.8 g/dL Low 32.0-35.0 [facility] Comment on above: Performed By: #### L [id number] ####[facility] (BEAKER)[address] [place] [address] Hematocrit (Bld) [Volume fraction] 46.8 % Normal 39.0-55.0 [facility] Comment on above: Performed By: #### L [id number] ####[facility] (BEAKER)[address] [place] [address] Hemoglobin (Bld) [Mass/Vol] 14.9 g/dL Normal 13.0-17.0 [facility] Comment on above: Performed By: #### L [id number] ####[facility] (BEAKER)[address] [place] [address] Immature granulocytes (Bld) [#/Vol] 0.05 10*3/uL Normal 0.00-0.20 [facility] Comment on above: Performed By: #### L [id number] ####[facility] (BEAKER)[address] [place] [address] Immature granulocytes/100 WBC (Bld) 0.6 % Normal 0.0-1.0 [facility] Comment on above: Performed By: #### L [id number] ####[facility] (BEAKER)[address] [place] [address] Lymphocytes (Bld) [#/Vol] 1.73 10*3/uL Normal 1.20-4.00 [facility] Comment on above: Performed By: #### L [id number] ####[facility] (BEAKER)[address] [place] [address] Lymphocytes/100 WBC (Bld) 20.9 % Normal 20.0-45.0 [facility] Comment on above: Performed By: #### L [id number] ####[facility] (BEAKER)[address] [place] [address] MCH (RBC) [Entitic mass] 29.3 pg Normal 27.0-33.0 [facility] Comment on above: Performed By: #### L [id number] ####[facility] (BEAKER)[address] [place] [address] MCV (RBC) [Entitic vol] 91.9 fL Normal 82.0-98.0 [facility] Comment on above: Performed By: #### L [id number] ####[facility] (BEAKER)[address] [place] [address] Monocytes (Bld) [#/Vol] 0.96 10*3/uL Normal 0.10-1.00 [facility] Comment on above: Performed By: #### L [id number] ####[facility] (BEAKER)[address] [place] [address] Monocytes/100 WBC (Bld) 11.6 % Normal 5.0-12.0 [facility] Comment on above: Performed By: #### L [id number] ####[facility] ([facility])[address] [place] [address] Neutrophils (Bld) [#/Vol] 5.06 10*3/uL Normal 1.60-7.60 [facility] Comment on above: Performed By: #### L [id number] ####[facility] ([facility])[address] [place] [address] Neutrophils/100 WBC (Bld) 61.3 % Normal 40.0-72.0 [facility] Comment on above: Performed By: #### L [id number] ####[facility] ([facility])[address] [place] [address] NRBC (PER 100 WBCS) BY AUTOMATED COUNT 0.0 % Normal 0 [facility] Comment on above: Performed By: #### L [id number] ####[facility] ([facility])[address] [place] [address] PLATELETS (10*3/UL) IN BLOOD AUTOMATED COUNT 264 10*3/uL Normal 150-400 [facility] Comment on above: Performed By: #### L [id number] ####[facility] ([facility])[address] [place] [address] RBC (Bld) [#/Vol] 5.09 10*6/uL Normal 4.20-5.70 [facility] Comment on above: Performed By: #### L [id number] ####[facility] ([facility])[address] [address] WBC (Bld) [#/Vol] 8.27 10*3/uL Normal 4.00-10.60 [facility] Comment on above: Performed By: #### L [id number] ####[facility] ([facility])[address] [place] [address] MAGNESIUMon 09-03-2024 Magnesium [Mass/Vol] 1.6 mg/dL Low 1.9-2.7 [facility] Comment on above: Performed By: #### L [id number] ####[facility] ([facility])[address] [place] [address] PHOSPHORUSon 09-03-2024 Magnesium [Mass/Vol] 3.3 mg/dL Normal 2.5-5.0 [facility] Comment on above: Performed By: #### L [id number] ####[facility] ([facility])[address] [place] [address] POCT GLUCOSE METER UNSOLICIT ED RESULTSon 09-03-2024 Glucose [Mass/Vol] 168 mg/dL High 70-[address] [facility] Comment on above: Order Comment: Waive d Testing in the ED is performed under the ED CLIA certificate #[id number]. Result Comment: [email or web address] pp Performed By: #### L [id number] ####[facility] ([facility])[address] [place] [address] Glucose [Mass/Vol] 184 mg/dL High 70-[address] [facility] Comment on above: Order Comment: Waive d Testing in the ED is performed under the ED CLIA certificate #[id number]. Result Comment: [email or web address] [email or web address] Performed By: #### L [id number] ####[facility] ([facility])[address] [place] [address] Glucose [Mass/Vol] 205 mg/dL High 70-[address] [facility] Comment on above: Order Comment: Waive d Testing in the ED is performed under the ED CLIA certificate #[id number]. Result Comment: [email or web address] [id number] Performed By: #### L [id number] ####[facility] ([facility])[address] [place] [address] Glucose [Mass/Vol] 145 mg/dL High 70-[address] [facility] Comment on above: Order Comment: Waive d Testing in the ED is performed under the ED CLIA certificate #[id number]. Result Comment: [email or web address] [email or web address] Performed By: #### L [id number] ####[facility] (BEC[facility]acel)[address] [place] [address] 30on 09-02-2024 30 Normal [facility] BASIC METABOLIC PANELon 08-21 Anion gap [Moles/Vol] 8 mmol/L Normal 7-20 [facility] Comment on above: Performed By: #### L [id number] ####[facility] (BEAKER)[address] [place] [address] Calcium [Mass/Vol] 9.5 mg/dL Normal 8.6-10.[address] [facility] Comment on above: Performed By: #### L [id number] ####[facility] (BEAKER)[address] [place] [address] Chloride [Moles/Vol] 99 mmol/L Normal 98-107 [facility] Comment on above: Performed By: #### L [id number] ####[facility] (BEAKER)[address] [place] [address] CO2 [Moles/Vol] 37 mmol/L High 21-31 [facility] Comment on above: Performed By: #### L [id number] ####[facility] (BEAKER)[address] [place] [address] Creatinine [Mass/Vol] 0.77 mg/dL Normal 0.70-1.30 [facility] Comment on above: Performed By: #### L [id number] ####[facility] (BEAKER)[address] [place] [address] GLOMERULAR FILTRATION RATE ML/MIN/1.73 SQ M.PREDICTED 99.4 mL/min/1.73m*2 Normal >60.0 [facility] Comment on above: Result Comment: [facility]???s estimated glomerular filtration rate (eGFR) will [...] of individuals. Performed By: #### L [id number] ####[facility] ([facility])[address] [place] [address] Glucose [Mass/Vol] 160 mg/dL High 70-[address] [facility] Comment on above: Performed By: #### L [id number] ####[facility] ([facility])[address] [place] [address] Potassium [Moles/Vol] 4.1 mmol/L Normal 3.5-5.1 [facility] Comment on above: Performed By: #### L [id number] ####[facility] ([facility])[address] [place] [address] Sodium [Moles/Vol] 140 mmol/L Normal 136-[address] [facility] Comment on above: Performed By: #### L [id number] ####[facility] ([facility])[address] [place] [address] Urea nitrogen [Mass/Vol] 16 mg/dL Normal 7-25 [facility] Comment on above: Performed By: #### L [id number] ####[facility] ([facility])[address] [place] [address] UREA NITROGEN/CREATININE (MASS RATIO) IN SER/PLAS 20.8 Normal [facility] Comment on above: Performed By: #### L [id number] ####[facility] ([facility])[address] [place] [address] CBC WITH AUTO DIFFERENTIALon 09-02-2024 Basophils (Bld) [#/Vol] 0.07 10*3/uL Normal 0.00-0.20 [facility] Comment on above: Performed By: #### L [id number] ####[facility] ([facility])[address] [place] [address] Basophils/100 WBC (Bld) 1.0 % Normal 0.0-1.0 [facility] Comment on above: Performed By: #### L [id number] ####[facility] (BEAKER)[address] [place] [address] Eosinophils (Bld) [#/Vol] 0.34 10*3/uL Normal 0.00-0.50 [facility] Comment on above: Performed By: #### L [id number] ####[facility] (BEAKER)[address] [place] [address] Eosinophils/100 WBC (Bld) 5.0 % Normal 0.0-6.0 [facility] Comment on above: Performed By: #### L [id number] ####[facility] ([facility])[address] [place] [address] Erythrocyte distribution width (RBC) [Ratio] 15.1 % High 11.5-15.0 [facility] Comment on above: Performed By: #### L [id number] ####[facility] ([facility])[address] [place] [address] ERYTHROCYTE MEAN CORPUSCULAR HEMOGLOBIN CONCENTRATION (G/DL) BY AUTOMATED 31.0 g/dL Low 32.0-35.0 [facility] Comment on above: Performed By: #### L [id number] ####[facility] ([facility])[address] [place] [address] Hematocrit (Bld) [Volume fraction] 46.2 % Normal 39.0-55.0 [facility] Comment on above: Performed By: #### L [id number] ####[facility] [place] [address] Hemoglobin (Bld) [Mass/Vol] 14.3 g/dL Normal 13.0-17.0 [facility] Comment on above: Performed By: #### L [id number] ####[facility] ([facility] [place] [address] Immature granulocytes (Bld) [#/Vol] 0.04 10*3/uL Normal 0.00-0.20 [facility] Comment on above: Performed By: #### L [id number] ####[facility] (BEAKER)[address] [place] [address] Immature granulocytes/100 WBC (Bld) 0.6 % Normal 0.0-1.0 [facility] Comment on above: Performed By: #### L [id number] ####[facility] (BEAKER)[address] [place] [address] Lymphocytes (Bld) [#/Vol] 1.60 10*3/uL Normal 1.20-4.00 [facility] Comment on above: Performed By: #### L [id number] ####[facility] (BEAKER)[address] [place] [address] Lymphocytes/100 WBC (Bld) 23.7 % Normal 20.0-45.0 [facility] Comment on above: Performed By: #### L [id number] ####[facility] (BEAKER)[address] [place] [address] MCH (RBC) [Entitic mass] 28.8 pg Normal 27.0-33.0 [facility] Comment on above: Performed By: #### L [id number] ####[facility] (BEAKER)[address] [place] [address] MCV (RBC) [Entitic vol] 93.1 fL Normal 82.0-98.0 [facility] Comment on above: Performed By: #### L [id number] ####[facility] (BEAKER)[address] [place] [address] Monocytes (Bld) [#/Vol] 0.86 10*3/uL Normal 0.10-1.00 [facility] Comment on above: Performed By: #### L [id number] ####[facility] (BEAKER)[address] [facility] [place] [address] Monocytes/100 WBC (Bld) 12.8 % High 5.0-12.0 [facility] Comment on above: Performed By: #### L [id number] ####[facility] (BEAKER)[address] [place] [address] Neutrophils (Bld) [#/Vol] 3.83 10*3/uL Normal 1.60-7.60 [facility] Comment on above: Performed By: #### L [id number] ####[facility] ([facility])[address] [place] [address] Neutrophils/100 WBC (Bld) 56.9 % Normal 40.0-72.0 [facility] Comment on above: Performed By: #### L [id number] ####[facility] ([facility])[address] [place] [address] NRBC (PER 100 WBCS) BY AUTOMATED COUNT 0.0 % Normal 0 [facility] Comment on above: Performed By: #### L [id number] ####[facility] ([facility])[address] [place] [address] PLATELETS (10*3/UL) IN BLOOD AUTOMATED COUNT 264 10*3/uL Normal 150-400 [facility] Comment on above: Performed By: #### L [id number] ####[facility] ([facility])[address] [place] [address] RBC (Bld) [#/Vol] 4.96 10*6/uL Normal 4.20-5.70 [facility] Comment on above: Performed By: #### L [id number] ####[facility] ([facility])[address] [place] [address] WBC (Bld) [#/Vol] 6.74 10*3/uL Normal 4.00-10.60 [facility] Comment on above: Performed By: #### L [id number] ####[facility] ([facility])[address] [place] [address] NURSNOTEon 09-02-2024 NURSNOTE Normal [facility] NURSNOTE Normal [facility] PHOSPHORUSon 09-02-2024 Magnesium [Mass/Vol] 3.1 mg/dL Normal 2.5-5.0 [facility] Comment on above: Performed By: #### L [id number] ####[facility] (BEAKER)[address] [place] [address] POCT GLUCOSE METER UNSOLICIT ED RESULTSon 09-02-2024 Glucose [Mass/Vol] 289 mg/dL High 70-[address] [facility] Comment on above: Order Comment: Waive d Testing in the ED is performed under the ED CLIA certificate #[id number]. Result Comment: [email or web address] Performed By: #### L [id number] ####[facility] ([facility])[address] [place] [address] Glucose [Mass/Vol] 260 mg/dL High 70-[address] [facility] Comment on above: Order Comment: Waive d Testing in the ED is performed under the ED CLIA certificate #[id number]. Result Comment: sbel cad Performed By: #### L [id number] ####[facility] ([facility])[address] [place] [address] Glucose [Mass/Vol] 204 mg/dL High 70-[address] [facility] Comment on above: Order Comment: Waive d Testing in the ED is performed under the ED CLIA certificate #[id number]. Result Comment: sbel cad Performed By: #### L [id number] ####[facility] ([facility])[address] [place] [address] Glucose [Mass/Vol] 166 mg/dL High 70-[address] [facility] Comment on above: Order Comment: Waive d Testing in the ED is performed under the ED CLIA certificate #[id number]. Result Comment: sbel cad Performed By: #### L [id number] ####[facility] ([facility])[address] [place] [address] 30on 09-01-2024 30 Normal [facility] BASIC METABOLIC PANELon 08-21 Anion gap [Moles/Vol] 7 mmol/L Normal 7-20 [facility] Comment on above: Performed By: #### L [id number] ####[facility] ([facility])[address] [place] [address] Calcium [Mass/Vol] 9.1 mg/dL Normal 8.6-10.[address] [facility] Comment on above: Performed By: #### L [id number] ####[facility] [place] [address] Chloride [Moles/Vol] 98 mmol/L Normal 98-107 [facility] Comment on above: Performed By: #### L [id number] ####[facility] ([facility])[address] [place] [address] CO2 [Moles/Vol] 36 mmol/L High 21-31 [facility] Comment on above: Performed By: #### L [id number] ####[facility] ([facility])[address] [place] [address] Creatinine [Mass/Vol] 0.84 mg/dL Normal 0.70-1.30 [facility] Comment on above: Performed By: #### L [id number] ####[facility] ([facility] CENTER)[address] [place] [address] GLOMERULAR FILTRATION RATE ML/MIN/1.73 SQ M.PREDICTED 96.8 mL/min/1.73m*2 Normal >60.0 [facility] Comment on above: Result Comment: [facility]???s estimated glomerular filtration rate (eGFR) will [...] of individuals. Performed By: #### L [id number] ####[facility] [place] [address] Glucose [Mass/Vol] 190 mg/dL High 70-[address] [facility] Comment on above: Performed By: #### L [id number] ####[facility] [place] [address] Potassium [Moles/Vol] 4.1 mmol/L Normal 3.5-5.1 [facility] Comment on above: Performed By: #### L [id number] ####[facility] [place] [address] Sodium [Moles/Vol] 137 mmol/L Normal 136-[address] [facility] Comment on above: Performed By: #### L [id number] ####[facility] [place] [address] Urea nitrogen [Mass/Vol] 18 mg/dL Normal 7-25 [facility] Comment on above: Performed By: #### L [id number] ####[facility] ([facility])[address] [place] [address] UREA NITROGEN/CREATININE (MASS RATIO) IN SER/PLAS 21.4 Normal [facility] Comment on above: Performed By: #### L [id number] ####[facility] [place] [address] CBC WITH AUTO DIFFERENTIALon 09-01-2024 Basophils (Bld) [#/Vol] 0.07 10*3/uL Normal 0.00-0.20 [facility] Comment on above: Performed By: #### L [id number] ####[facility] (BEAKER)[address] [place] [address] Basophils/100 WBC (Bld) 1.0 % Normal 0.0-1.0 [facility] Comment on above: Performed By: #### L [id number] ####[facility] (BEAKER)[address] [place] [address] Eosinophils (Bld) [#/Vol] 0.37 10*3/uL Normal 0.00-0.50 [facility] Comment on above: Performed By: #### L [id number] ####[facility] (BEAKER)[address] [place] [address] Eosinophils/100 WBC (Bld) 5.1 % Normal 0.0-6.0 [facility] Comment on above: Performed By: #### L [id number] ####[facility] ([facility])[address] [place] [address] Erythrocyte distribution width (RBC) [Ratio] 15.1 % High 11.5-15.0 [facility] Comment on above: Performed By: #### L [id number] ####[facility] ([facility])[address] [place] [address] ERYTHROCYTE MEAN CORPUSCULAR HEMOGLOBIN CONCENTRATION (G/DL) BY AUTOMATED 31.3 g/dL Low 32.0-35.0 [facility] Comment on above: Performed By: #### L [id number] ####[facility] ([facility])[address] [place] [address] Hematocrit (Bld) [Volume fraction] 46.3 % Normal 39.0-55.0 [facility] Comment on above: Performed By: #### L [id number] ####[facility] ([facility])[address] [place] [address] Hemoglobin (Bld) [Mass/Vol] 14.5 g/dL Normal 13.0-17.0 [facility] Comment on above: Performed By: #### L [id number] ####[facility] [place] [address] Immature granulocytes (Bld) [#/Vol] 0.04 10*3/uL Normal 0.00-0.20 [facility] Comment on above: Performed By: #### L [id number] ####[facility] [place] [address] Immature granulocytes/100 WBC (Bld) 0.6 % Normal 0.0-1.0 [facility] Comment on above: Performed By: #### L [id number] ####[facility] (BEAKER)[address] [place] [address] Lymphocytes (Bld) [#/Vol] 1.46 10*3/uL Normal 1.20-4.00 [facility] Comment on above: Performed By: #### L [id number] ####[facility] (BEAKER)[address] [place] [address] Lymphocytes/100 WBC (Bld) 20.2 % Normal 20.0-45.0 [facility] Comment on above: Performed By: #### L [id number] ####[facility] (BEAKER)[address] [place] [address] MCH (RBC) [Entitic mass] 29.1 pg Normal 27.0-33.0 [facility] Comment on above: Performed By: #### L [id number] ####[facility] (BEAKER)[address] [place] [address] MCV (RBC) [Entitic vol] 92.8 fL Normal 82.0-98.0 [facility] Comment on above: Performed By: #### L [id number] ####[facility] (BEAKER)[address] [place] [address] Monocytes (Bld) [#/Vol] 0.85 10*3/uL Normal 0.10-1.00 [facility] Comment on above: Performed By: #### L [id number] ####[facility] (BEAKER)[address] [place] [address] Monocytes/100 WBC (Bld) 11.8 % Normal 5.0-12.0 [facility] Comment on above: Performed By: #### L [id number] ####[facility] (BEAKER)[address] [place] [address] Neutrophils (Bld) [#/Vol] 4.43 10*3/uL Normal 1.60-7.60 [facility] Comment on above: Performed By: #### L [id number] ####[facility] (BEAKER)[address] [place] [address] Neutrophils/100 WBC (Bld) 61.3 % Normal 40.0-72.0 [facility] Comment on above: Performed By: #### L [id number] ####[facility] (BEAKER)[address] [place] [address] NRBC (PER 100 WBCS) BY AUTOMATED COUNT 0.0 % Normal 0 [facility] Comment on above: Performed By: #### L [id number] ####[facility] ([facility])[address] [place] [address] PLATELETS (10*3/UL) IN BLOOD AUTOMATED COUNT 268 10*3/uL Normal 150-400 [facility] Comment on above: Performed By: #### L [id number] ####[facility] ([facility])[address] [place] [address] RBC (Bld) [#/Vol] 4.99 10*6/uL Normal 4.20-5.70 [facility] Comment on above: Performed By: #### L [id number] ####[facility] ([facility])[address] [place] [address] WBC (Bld) [#/Vol] 7.22 10*3/uL Normal 4.00-10.60 [facility] Comment on above: Performed By: #### L [id number] ####[facility] ([facility])[address] [place] [address] MAGNESIUMon 09-01-2024 Magnesium [Mass/Vol] 1.8 mg/dL Low 1.9-2.7 [facility] Comment on above: Performed By: #### L [id number] ####[facility] ([facility])[address] [place] [address] POCT GLUCOSE METER UNSOLICIT ED RESULTSon 09-01-2024 Glucose [Mass/Vol] 225 mg/dL High 70-[address] [facility] Comment on above: Order Comment: Waive d Testing in the ED is performed under the ED CLIA certificate #[id number]. Result Comment: [email or web address] Performed By: #### L [id number] ####[facility] ([facility])[address] [place] [address] Glucose [Mass/Vol] 181 mg/dL High 70-[address] [facility] Comment on above: Order Comment: Waive d Testing in the ED is performed under the ED CLIA certificate #[id number]. Result Comment: [email or web address] Performed By: #### L [id number] ####[facility] (BEAKER)[address] [place] [address] Glucose [Mass/Vol] 209 mg/dL High 70-[address] [facility] Comment on above: Order Comment: Waive d Testing in the ED is performed under the ED CLIA certificate #[id number]. Result Comment: [email or web address] Performed By: #### L [id number] ####[facility] (BEAKER)[address] [place] [address] Glucose [Mass/Vol] 181 mg/dL High 70-[address] [facility] Comment on above: Order Comment: Waive d Testing in the ED is performed under the ED CLIA certificate #[id number]. Result Comment: [email or web address] Performed By: #### L [id number] ####[facility] (BEAKER)[address] [place] [address] 30on 08-31-2024 30 Normal [facility] 30 Normal [facility] BASIC METABOLIC PANELon 08-21 Anion gap [Moles/Vol] 8 mmol/L Normal 7-20 [facility] Comment on above: Performed By: #### L [id number] ####[facility] (BEAKER)[address] [place] [address] Calcium [Mass/Vol] 9.6 mg/dL Normal 8.6-10.[address] [facility] Comment on above: Performed By: #### L [id number] ####[facility] (BEAKER)[address] [place] [address] Chloride [Moles/Vol] 97 mmol/L Low 98-107 [facility] Comment on above: Performed By: #### L [id number] ####[facility] (BEAKER)[address] [place] [address] CO2 [Moles/Vol] 35 mmol/L High 21-31 [facility] Comment on above: Performed By: #### L [id number] ####[facility] ([facility])[address] [place] [address] Creatinine [Mass/Vol] 0.85 mg/dL Normal 0.70-1.30 [facility] Comment on above: Performed By: #### L [id number] ####[facility] ([facility])[address] [place] [address] GLOMERULAR FILTRATION RATE ML/MIN/1.73 SQ M.PREDICTED 96.4 mL/min/1.73m*2 Normal >60.0 [facility] Comment on above: Result Comment: [facility]???s estimated glomerular filtration rate (eGFR) will [...] of individuals. Performed By: #### L [id number] ####[facility] ([facility])[address] [place] [address] Glucose [Mass/Vol] 205 mg/dL High 70-[address] [facility] Comment on above: Performed By: #### L [id number] ####[facility] ([facility])[address] [place] [address] Potassium [Moles/Vol] 3.9 mmol/L Normal 3.5-5.1 [facility] Comment on above: Performed By: #### L [id number] ####[facility] ([facility])[address] [place] [address] Sodium [Moles/Vol] 136 mmol/L Normal 136-[address] [facility] Comment on above: Performed By: #### L [id number] ####[facility] (BEAKER)[address] [place] [address] Urea nitrogen [Mass/Vol] 21 mg/dL Normal 7-25 [facility] Comment on above: Performed By: #### L [id number] ####[facility] (BEAKER)[address] [place] [address] UREA NITROGEN/CREATININE (MASS RATIO) IN SER/PLAS 24.7 Normal [facility] Comment on above: Performed By: #### L [id number] ####[facility] (BEAKER)[address] [place] [address] CBC WITH AUTO DIFFERENTIALon 08-31-2024 Basophils (Bld) [#/Vol] 0.06 10*3/uL Normal 0.00-0.20 [facility] Comment on above: Performed By: #### L [id number] ####[facility] [place] [address] Basophils/100 WBC (Bld) 0.8 % Normal 0.0-1.0 [facility] Comment on above: Performed By: #### L [id number] ####[facility] (BEAKER)[address] [place] [address] Eosinophils (Bld) [#/Vol] 0.38 10*3/uL Normal 0.00-0.50 [facility] Comment on above: Performed By: #### L [id number] ####[facility] (BEAKER)[address] [place], [place] [address] Eosinophils/100 WBC (Bld) 5.3 % Normal 0.0-6.0 [facility] Comment on above: Performed By: #### L [id number] ####[facility] (BEAKER)[address] [place] [address] Erythrocyte distribution width (RBC) [Ratio] 15.2 % High 11.5-15.0 [facility] Comment on above: Performed By: #### L [id number] ####[facility] (BEAKER)[address] [place] [address] ERYTHROCYTE MEAN CORPUSCULAR HEMOGLOBIN CONCENTRATION (G/DL) BY AUTOMATED 30.4 g/dL Low 32.0-35.0 [facility] Comment on above: Performed By: #### L [id number] ####[facility] (BEAKER)[address] [place] [address] Hematocrit (Bld) [Volume fraction] 48.3 % Normal 39.0-55.0 [facility] Comment on above: Performed By: #### L [id number] ####[facility] (BEAKER)[address] [place] [address] Hemoglobin (Bld) [Mass/Vol] 14.7 g/dL Normal 13.0-17.0 [facility] Comment on above: Performed By: #### L [id number] ####[facility] (BEAKER)[address] [place] [address] Immature granulocytes (Bld) [#/Vol] 0.06 10*3/uL Normal 0.00-0.20 [facility] Comment on above: Performed By: #### L [id number] ####[facility] (BEAKER)[address] [place] [address] Immature granulocytes/100 WBC (Bld) 0.8 % Normal 0.0-1.0 [facility] Comment on above: Performed By: #### L [id number] ####[facility] (BEAKER)[address] [place] [address] Lymphocytes (Bld) [#/Vol] 1.17 10*3/uL Low 1.20-4.00 [facility] Comment on above: Performed By: #### L [id number] ####[facility] (BEAKER)[address] [place] [address] Lymphocytes/100 WBC (Bld) 16.3 % Low 20.0-45.0 [facility] Comment on above: Performed By: #### L [id number] ####[facility] (BEAKER)[address] [place] [address] MCH (RBC) [Entitic mass] 29.0 pg Normal 27.0-33.0 [facility] Comment on above: Performed By: #### L [id number] ####[facility] ([facility])[address] [place] [address] MCV (RBC) [Entitic vol] 95.3 fL Normal 82.0-98.0 [facility] Comment on above: Performed By: #### L [id number] ####[facility] ([facility])[address] [place] [address] Monocytes (Bld) [#/Vol] 0.82 10*3/uL Normal 0.10-1.00 [facility] Comment on above: Performed By: #### L [id number] ####[facility] ([facility])[address] [place] [address] Monocytes/100 WBC (Bld) 11.4 % Normal 5.0-12.0 [facility] Comment on above: Performed By: #### L [id number] ####[facility] ([facility])[address] [place] [address] Neutrophils (Bld) [#/Vol] 4.70 10*3/uL Normal 1.60-7.60 [facility] Comment on above: Performed By: #### L [id number] ####[facility] ([facility])[address] [place] [address] Neutrophils/100 WBC (Bld) 65.4 % Normal 40.0-72.0 [facility] Comment on above: Performed By: #### L [id number] ####[facility] ([facility])[address] [place] [address] NRBC (PER 100 WBCS) BY AUTOMATED COUNT 0.0 % Normal 0 [facility] Comment on above: Performed By: #### L [id number] ####[facility] [place] [address] PLATELETS (10*3/UL) IN BLOOD AUTOMATED COUNT 278 10*3/uL Normal 150-400 [facility] Comment on above: Performed By: #### L [id number] ####[facility] ([facility])[address] [place] [address] RBC (Bld) [#/Vol] 5.07 10*6/uL Normal 4.20-5.70 [facility] Comment on above: Performed By: #### L [id number] ####[facility] ([facility])[address] [place] [address] WBC (Bld) [#/Vol] 7.19 10*3/uL Normal 4.00-10.60 [facility] Comment on above: Performed By: #### L [id number] ####[facility] ([facility])[address] [place] [address] MAGNESIUMon 08-31-2024 Magnesium [Mass/Vol] 1.6 mg/dL Low 1.9-2.7 [facility] Comment on above: Performed By: #### L [id number] ####[facility] ([facility])[address] [place] [address] POCT GLUCOSE METER UNSOLICIT ED RESULTSon 08-31-2024 Glucose [Mass/Vol] 281 mg/dL High 70-[address] [facility] Comment on above: Order Comment: Waive d Testing in the ED is performed under the ED CLIA certificate #[id number]. Result Comment: [email or web address] Performed By: #### L [id number] ####[facility] ([facility])[address] [place] [address] Glucose [Mass/Vol] 157 mg/dL High 70-[address] [facility] Comment on above: Order Comment: Waive d Testing in the ED is performed under the ED CLIA certificate #[id number]. Result Comment: [email or web address] Performed By: #### L [id number] ####[facility] ([facility])[address] [place] [address] Glucose [Mass/Vol] 212 mg/dL High 70-[address] [facility] Comment on above: Order Comment: Waive d Testing in the ED is performed under the ED CLIA certificate #[id number]. Result Comment: [email or web address] Performed By: #### L [id number] ####[facility] (BEAKER)[address] [place] [address] Glucose [Mass/Vol] 167 mg/dL High 70-[address] [facility] Comment on above: Order Comment: Waive d Testing in the ED is performed under the ED CLIA certificate #[id number]. Result Comment: [email or web address] Performed By: #### L [id number] ####[facility] (BEAKER)[address] [place] [address] 30on 08-30-2024 30 Normal [facility] BASIC METABOLIC PANELon 08-21 Anion gap [Moles/Vol] 10 mmol/L Normal 7-20 [facility] Comment on above: Performed By: #### L [id number] ####[facility] (BEAKER)[address] [place] [address] Calcium [Mass/Vol] 10.3 mg/dL Normal 8.6-10.[address] [facility] Comment on above: Performed By: #### L [id number] ####[facility] (BEAKER)[address] [place] [address] Chloride [Moles/Vol] 94 mmol/L Low 98-107 [facility] Comment on above: Performed By: #### L [id number] ####[facility] (BEAKER)[address] [place] [address] CO2 [Moles/Vol] 34 mmol/L High 21-31 [facility] Comment on above: Performed By: #### L [id number] ####[facility] (BEAKER)[address] [place] [address] Creatinine [Mass/Vol] 0.98 mg/dL Normal 0.70-1.30 [facility] Comment on above: Performed By: #### L [id number] ####[facility] (BEAKER)[address] [place] [address] GLOMERULAR FILTRATION RATE ML/MIN/1.73 SQ M.PREDICTED 85.6 mL/min/1.73m*2 Normal >60.0 [facility] Comment on above: Result Comment: [facility]???s estimated glomerular filtration rate (eGFR) will [...] of individuals. Performed By: #### L [id number] ####[facility] ([facility])[address] [place] [place] [address] Glucose [Mass/Vol] 184 mg/dL High 70-[address] [facility] Comment on above: Performed By: #### L [id number] ####[facility] ([facility])[address] [place] [place] [address] Potassium [Moles/Vol] 4.1 mmol/L Normal 3.5-5.1 [facility] Comment on above: Performed By: #### L [id number] ####[facility] ([facility])[address] [address] Sodium [Moles/Vol] 134 mmol/L Low 136-[address] [facility] Comment on above: Performed By: #### L [id number] ####[facility] ([facility])[address] [place] [address] Urea nitrogen [Mass/Vol] 27 mg/dL High 7-25 [facility] Comment on above: Performed By: #### L [id number] ####[facility] ([facility])[address] [address] UREA NITROGEN/CREATININE (MASS RATIO) IN SER/PLAS 27.6 Normal [facility] Comment on above: Performed By: #### L [id number] ####[facility] ([facility])[address] [place] [address] CBC WITH AUTO DIFFERENTIALon 08-30-2024 Basophils (Bld) [#/Vol] 0.09 10*3/uL Normal 0.00-0.20 [facility] Comment on above: Performed By: #### L [id number] ####[facility] (BEAKER)[address] [place], [place] [address] Basophils/100 WBC (Bld) 1.0 % Normal 0.0-1.0 [facility] Comment on above: Performed By: #### L [id number] ####[facility] (BEAKER)[address] [place], [place] [address] Eosinophils (Bld) [#/Vol] 0.54 10*3/uL High 0.00-0.50 [facility] Comment on above: Performed By: #### L [id number] ####[facility] (BEAKER)[address] [place] [address] Eosinophils/100 WBC (Bld) 5.9 % Normal 0.0-6.0 [facility] Comment on above: Performed By: #### L [id number] ####[facility] (BEAKER)[address] [place] [address] Erythrocyte distribution width (RBC) [Ratio] 14.9 % Normal 11.5-15.0 [facility] Comment on above: Performed By: #### L [id number] ####[facility] (BEAKER)[address] [place] [address] ERYTHROCYTE MEAN CORPUSCULAR HEMOGLOBIN CONCENTRATION (G/DL) BY AUTOMATED 31.0 g/dL Low 32.0-35.0 [facility] Comment on above: Performed By: #### L [id number] ####[facility] (BEAKER)[address] [place] [address] Hematocrit (Bld) [Volume fraction] 50.9 % Normal 39.0-55.0 [facility] Comment on above: Performed By: #### L [id number] ####[facility] (BEAKER)[address] [place] [address] Hemoglobin (Bld) [Mass/Vol] 15.8 g/dL Normal 13.0-17.0 [facility] Comment on above: Performed By: #### L [id number] ####[facility] (BEAKER)[address] [place] [address] Immature granulocytes (Bld) [#/Vol] 0.06 10*3/uL Normal 0.00-0.20 [facility] Comment on above: Performed By: #### L [id number] ####[facility] (BEAKER)[address] [place] [address] Immature granulocytes/100 WBC (Bld) 0.7 % Normal 0.0-1.0 [facility] Comment on above: Performed By: #### L [id number] ####[facility] (BEAKER)[address] [place] [address] Lymphocytes (Bld) [#/Vol] 1.65 10*3/uL Normal 1.20-4.00 [facility] Comment on above: Performed By: #### L [id number] ####[facility] (BEAKER)[address] [place] [address] Lymphocytes/100 WBC (Bld) 17.9 % Low 20.0-45.0 [facility] Comment on above: Performed By: #### L [id number] ####[facility] (BEAKER)[address] [place] [address] MCH (RBC) [Entitic mass] 29.2 pg Normal 27.0-33.0 [facility] Comment on above: Performed By: #### L [id number] ####[facility] (BEAKER)[address] [place] [address] MCV (RBC) [Entitic vol] 93.9 fL Normal 82.0-98.0 [facility] Comment on above: Performed By: #### L [id number] ####[facility] (BEAKER)[address] [place] [address] Monocytes (Bld) [#/Vol] 1.05 10*3/uL High 0.10-1.00 [facility] Comment on above: Performed By: #### L [id number] ####[facility] ([facility])[address] [place] [address] Monocytes/100 WBC (Bld) 11.4 % Normal 5.0-12.0 [facility] Comment on above: Performed By: #### L [id number] ####[facility] ([facility])[address] [place] [address] Neutrophils (Bld) [#/Vol] 5.82 10*3/uL Normal 1.60-7.60 [facility] Comment on above: Performed By: #### L [id number] ####[facility] ([facility])[address] [place] [address] Neutrophils/100 WBC (Bld) 63.1 % Normal 40.0-72.0 [facility] Comment on above: Performed By: #### L [id number] ####[facility] ([facility] [facility] [place] [address] NRBC (PER 100 WBCS) BY AUTOMATED COUNT 0.0 % Normal 0 [facility] Comment on above: Performed By: #### L [id number] ####[facility] ([facility])[address] [place] [address] PLATELETS (10*3/UL) IN BLOOD AUTOMATED COUNT 298 10*3/uL Normal 150-400 [facility] Comment on above: Performed By: #### L [id number] ####[facility] [place] [address] RBC (Bld) [#/Vol] 5.42 10*6/uL Normal 4.20-5.70 [facility] Comment on above: Performed By: #### L [id number] ####[facility] (BEAKER)[address] [place] [address] WBC (Bld) [#/Vol] 9.21 10*3/uL Normal 4.00-10.60 [facility] Comment on above: Performed By: #### L [id number] ####[facility] ([facility])[address] [place] [address] CONSULTon 08-30-2024 CONSULT Normal [facility] MAGNESIUMon 08-30-2024 Magnesium [Mass/Vol] 1.7 mg/dL Low 1.9-2.7 [facility] Comment on above: Performed By: #### L [id number] ####[facility] ([facility])[address] [place] [address] NURSNOTEon 08-30-2024 NURSNOTE [facility] POCT GLUCOSE METER UNSOLICIT ED RESULTSon 08-30-2024 Glucose [Mass/Vol] 294 mg/dL High 70-[address] [facility] Comment on above: Order Comment: Waive d Testing in the ED is performed under the ED CLIA certificate #[id number]. Result Comment: [email or web address] [email or web address] Value Noted Performed By: #### L [id number] ####[facility] ([facility])[address] [place] [address] Glucose [Mass/Vol] 162 mg/dL High 70-[address] [facility] Comment on above: Order Comment: Waive d Testing in the ED is performed under the ED CLIA certificate #[id number]. Result Comment: abee rbo Performed By: #### L [id number] ####[facility] ([facility])[address] [place] [address] Glucose [Mass/Vol] 193 mg/dL High 70-[address] [facility] Comment on above: Order Comment: Waive d Testing in the ED is performed under the ED CLIA certificate #[id number]. Result Comment: abee rbo Performed By: #### L [id number] ####[facility] ([facility])[address] [place] [address] Glucose [Mass/Vol] 235 mg/dL High 70-[address] [facility] Comment on above: Order Comment: Waive d Testing in the ED is performed under the ED CLIA certificate #[id number]. Result Comment: [email or web address] Performed By: #### L [id number] ####[facility] ([facility])[address] [place] [address] Glucose [Mass/Vol] 209 mg/dL High 70-[address] [facility] Comment on above: Order Comment: Waive d Testing in the ED is performed under the ED CLIA certificate #[id number]. Result Comment: [email or web address] Performed By: #### L [id number] ####[facility] (BEAKER)[address] [place] [address] BASIC METABOLIC PANELon 02-0 Anion gap [Moles/Vol] 7 mmol/L Normal 7-20 [facility] Comment on above: Performed By: #### L [id number] ####[facility] ([facility]ER)[address] [place] [address] Calcium [Mass/Vol] 10.5 mg/dL High 8.6-10.[address] [facility] Comment on above: Performed By: #### L [id number] ####[facility] ([facility])[address] [place] [address] Chloride [Moles/Vol] 93 mmol/L Low 98-107 [facility] Comment on above: Performed By: #### L [id number] ####[facility] (BEAKER)[address] [place] [address] CO2 [Moles/Vol] 38 mmol/L High 21-31 [facility] Comment on above: Performed By: #### L [id number] ####[facility] ([facility])[address] [place] [address] Creatinine [Mass/Vol] 0.96 mg/dL Normal 0.70-1.30 [facility] Comment on above: Performed By: #### L [id number] ####[facility] ([facility]ER)[address] [place] [address] GLOMERULAR FILTRATION RATE ML/MIN/1.73 SQ M.PREDICTED 87.7 mL/min/1.73m*2 Normal >60.0 [facility] Comment on above: Result Comment: [facility]???s estimated glomerular filtration rate (eGFR) will [...] of individuals. Performed By: #### L [id number] ####[facility] ([facility])[address] [place] [address] Glucose [Mass/Vol] 182 mg/dL High 70-[address] [facility] Comment on above: Performed By: #### L [id number] ####[facility] ([facility])[address] [place] [address] Potassium [Moles/Vol] 4.1 mmol/L Normal 3.5-5.1 [facility] Comment on above: Performed By: #### L [id number] ####[facility] ([facility])[address] [place] [address] Sodium [Moles/Vol] 134 mmol/L Low 136-[address] [facility] Comment on above: Performed By: #### L [id number] ####[facility] ([facility])[address] [place] [address] Urea nitrogen [Mass/Vol] 23 mg/dL Normal 7-25 [facility] Comment on above: Performed By: #### L [id number] ####[facility] ([facility])[address] [place] [address] UREA NITROGEN/CREATININE (MASS RATIO) IN SER/PLAS 24.0 Normal [facility] Comment on above: Performed By: #### L [id number] ####[facility] ([facility])[address] [place] [address] CBC WITH AUTO DIFFERENTIALon 08-29-2024 Basophils (Bld) [#/Vol] 0.09 10*3/uL Normal 0.00-0.20 [facility] Comment on above: Performed By: #### L [id number] ####[facility] ([facility])[address] [place] [address] Basophils/100 WBC (Bld) 1.0 % Normal 0.0-1.0 [facility] Comment on above: Performed By: #### L [id number] ####[facility] ([facility])[address] [place] [address] Eosinophils (Bld) [#/Vol] 0.48 10*3/uL Normal 0.00-0.50 [facility] Comment on above: Performed By: #### L [id number] ####[facility] ([facility]ER)[address] [place] [address] Eosinophils/100 WBC (Bld) 5.3 % Normal 0.0-6.0 [facility] Comment on above: Performed By: #### L [id number] ####[facility] ([facility]ER)[address] [place] [address] Erythrocyte distribution width (RBC) [Ratio] 15.0 % Normal 11.5-15.0 [facility] Comment on above: Performed By: #### L [id number] ####[facility] ([facility]ER)[address] [place] [address] ERYTHROCYTE MEAN CORPUSCULAR HEMOGLOBIN CONCENTRATION (G/DL) BY AUTOMATED 30.5 g/dL Low 32.0-35.0 [facility] Comment on above: Performed By: #### L [id number] ####[facility] ([facility]ER)[address] [place] [address] Hematocrit (Bld) [Volume fraction] 51.2 % Normal 39.0-55.0 [facility] Comment on above: Performed By: #### L [id number] ####[facility] (BEAKER)[address] [place] [address] Hemoglobin (Bld) [Mass/Vol] 15.6 g/dL Normal 13.0-17.0 [facility] Comment on above: Performed By: #### L [id number] ####[facility] (BEAKER)[address] [place] [address] Immature granulocytes (Bld) [#/Vol] 0.07 10*3/uL Normal 0.00-0.20 [facility] Comment on above: Performed By: #### L [id number] ####[facility] ([facility]AKER)[address] [place] [address] Immature granulocytes/100 WBC (Bld) 0.8 % Normal 0.0-1.0 [facility] Comment on above: Performed By: #### L [id number] ####[facility] ([facility]ER)[address] [place] [address] Lymphocytes (Bld) [#/Vol] 1.41 10*3/uL Normal 1.20-4.00 [facility] Comment on above: Performed By: #### L [id number] ####[facility] (BEAKER)[address] [place] [address] Lymphocytes/100 WBC (Bld) 15.7 % Low 20.0-45.0 [facility] Comment on above: Performed By: #### L [id number] ####[facility] (BEAKER)[address] [place] [address] MCH (RBC) [Entitic mass] 29.0 pg Normal 27.0-33.0 [facility] Comment on above: Performed By: #### L [id number] ####[facility] (BEAKER)[address] [place] [address] MCV (RBC) [Entitic vol] 95.2 fL Normal 82.0-98.0 [facility] Comment on above: Performed By: #### L [id number] ####[facility] ([facility]ER)[address] [facility] [place] [address] Monocytes (Bld) [#/Vol] 0.82 10*3/uL Normal 0.10-1.00 [facility] Comment on above: Performed By: #### L [id number] ####[facility] ([facility])[address] [place] [address] Monocytes/100 WBC (Bld) 9.1 % Normal 5.0-12.0 [facility] Comment on above: Performed By: #### L [id number] ####[facility] ([facility])[address] [place] [address] Neutrophils (Bld) [#/Vol] 6.11 10*3/uL Normal 1.60-7.60 [facility] Comment on above: Performed By: #### L [id number] ####[facility] ([facility])[address] [place] [address] Neutrophils/100 WBC (Bld) 68.1 % Normal 40.0-72.0 [facility] Comment on above: Performed By: #### L [id number] ####[facility] ([facility])[address] [place] [address] NRBC (PER 100 WBCS) BY AUTOMATED COUNT 0.0 % Normal 0 [facility] Comment on above: Performed By: #### L [id number] ####[facility] ([facility])[address] [place] [address] PLATELETS (10*3/UL) IN BLOOD AUTOMATED COUNT 262 10*3/uL Normal 150-400 [facility] Comment on above: Performed By: #### L [id number] ####[facility] ([facility])[address] [place] [address] RBC (Bld) [#/Vol] 5.38 10*6/uL Normal 4.20-5.70 [facility] Comment on above: Performed By: #### L [id number] ####[facility] ([facility])[address] [place] [address] WBC (Bld) [#/Vol] 8.98 10*3/uL Normal 4.00-10.60 [facility] Comment on above: Performed By: #### L [id number] ####[facility] ([facility])[address] [place] [address] MAGNESIUMon 08-29-2024 Magnesium [Mass/Vol] 1.7 mg/dL Low 1.9-2.7 [facility] Comment on above: Performed By: #### L [id number] ####[facility] ([facility])[address] [place] [address] POCT GLUCOSE METER UNSOLICIT ED RESULTSon 08-29-2024 Glucose [Mass/Vol] 284 mg/dL High 70-[address] [facility] Comment on above: Order Comment: Waive d Testing in the ED is performed under the ED CLIA certificate #[id number]. Result Comment: [email or web address] Performed By: #### L [id number] ####[facility] ([facility])[address] [place] [address] Glucose [Mass/Vol] 259 mg/dL High 70-[address] [facility] Comment on above: Order Comment: Waive d Testing in the ED is performed under the ED CLIA certificate #[id number]. Result Comment: aall [email or web address] Performed By: #### L [id number] ####[facility] ([facility])[address] [place] [address] Glucose [Mass/Vol] 301 mg/dL High 70-[address] [facility] Comment on above: Order Comment: Waive d Testing in the ED is performed under the ED CLIA certificate #[id number]. Result Comment: aall [email or web address] Performed By: #### L [id number] ####[facility] ([facility])[address] [place] [address] Glucose [Mass/Vol] 166 mg/dL High 70-[address] [facility] Comment on above: Order Comment: Waive d Testing in the ED is performed under the ED CLIA certificate #[id number]. Result Comment: aall [email or web address] Performed By: #### L [id number] ####[facility] ([facility])[address] [place] [address] BASIC METABOLIC PANELon 02-0 8-2025 Anion gap [Moles/Vol] 8 mmol/L Normal 7-20 [facility] Comment on above: Performed By: #### L [id number] ####[facility] ([facility] [place] [address] Calcium [Mass/Vol] 9.8 mg/dL Normal 8.6-10.[address] [facility] Comment on above: Performed By: #### L [id number] ####[facility] ([facility] [place] [address] Chloride [Moles/Vol] 96 mmol/L Low 98-107 [facility] Comment on above: Performed By: #### L [id number] ####[facility] ([facility] [place] [address] CO2 [Moles/Vol] 37 mmol/L High 21-31 [facility] Comment on above: Performed By: #### L [id number] ####[facility] ([facility] [place] [address] Creatinine [Mass/Vol] 0.82 mg/dL Normal 0.70-1.30 [facility] Comment on above: Performed By: #### L [id number] ####[facility] ([facility] [place] [address] GLOMERULAR FILTRATION RATE ML/MIN/1.73 SQ M.PREDICTED 97.5 mL/min/1.73m*2 Normal >60.0 [facility] Comment on above: Result Comment: [facility]???s estimated glomerular filtration rate (eGFR) will [...] of individuals. Performed By: #### L [id number] ####[facility] ([facility] [place] [address] Glucose [Mass/Vol] 183 mg/dL High 70-[address] [facility] Comment on above: Performed By: #### L [id number] ####[facility] ([facility] [place] [address] Potassium [Moles/Vol] 3.7 mmol/L Normal 3.5-5.1 [facility] Comment on above: Performed By: #### L [id number] ####[facility] ([facility] [place] [address] Sodium [Moles/Vol] 137 mmol/L Normal 136-[address] [facility] Comment on above: Performed By: #### L [id number] ####[facility] ([facility])[address] [place] [address] Urea nitrogen [Mass/Vol] 17 mg/dL Normal 7-25 [facility] Comment on above: Performed By: #### L [id number] ####[facility] ([facility])[address] [place] [address] UREA NITROGEN/CREATININE (MASS RATIO) IN SER/PLAS 20.7 Normal [facility] Comment on above: Performed By: #### L [id number] ####[facility] ([facility] [place] [address] CBC WITH AUTO DIFFERENTIALon 08-28-2024 Basophils (Bld) [#/Vol] 0.09 10*3/uL Normal 0.00-0.20 [facility] Comment on above: Performed By: #### L [id number] ####[facility] ([facility] [place] [address] Basophils/100 WBC (Bld) 0.9 % Normal 0.0-1.0 [facility] Comment on above: Performed By: #### L [id number] ####[facility] [place] [address] Eosinophils (Bld) [#/Vol] 0.40 10*3/uL Normal 0.00-0.50 [facility] Comment on above: Performed By: #### L [id number] ####[facility] (BEAKER)[address] [place] [address] Eosinophils/100 WBC (Bld) 4.2 % Normal 0.0-6.0 [facility] Comment on above: Performed By: #### L [id number] ####[facility] ([facility]ER)[address] [place] [address] Erythrocyte distribution width (RBC) [Ratio] 14.8 % Normal 11.5-15.0 [facility] Comment on above: Performed By: #### L [id number] ####[facility] ([facility]ER)[address] [place] [address] ERYTHROCYTE MEAN CORPUSCULAR HEMOGLOBIN CONCENTRATION (G/DL) BY AUTOMATED 30.3 g/dL Low 32.0-35.0 [facility] Comment on above: Performed By: #### L [id number] ####[facility] ([facility]ER)[address] [place] [address] Hematocrit (Bld) [Volume fraction] 50.9 % Normal 39.0-55.0 [facility] Comment on above: Performed By: #### L [id number] ####[facility] ([facility]ER)[address] [place] [address] Hemoglobin (Bld) [Mass/Vol] 15.4 g/dL Normal 13.0-17.0 [facility] Comment on above: Performed By: #### L [id number] ####[facility] ([facility]ER)[address] [place] [address] Immature granulocytes (Bld) [#/Vol] 0.06 10*3/uL Normal 0.00-0.20 [facility] Comment on above: Performed By: #### L [id number] ####[facility] ([facility]ER)[address] [place] [address] Immature granulocytes/100 WBC (Bld) 0.6 % Normal 0.0-1.0 [facility] Comment on above: Performed By: #### L [id number] ####[facility] ([facility])[address] [place] [address] Lymphocytes (Bld) [#/Vol] 1.68 10*3/uL Normal 1.20-4.00 [facility] Comment on above: Performed By: #### L [id number] ####[facility] ([facility])[address] [place] [address] Lymphocytes/100 WBC (Bld) 17.6 % Low 20.0-45.0 [facility] Comment on above: Performed By: #### L [id number] ####[facility] ([facility])[address] [place] [address] MCH (RBC) [Entitic mass] 29.2 pg Normal 27.0-33.0 [facility] Comment on above: Performed By: #### L [id number] ####[facility] ([facility])[address] [place] [address] MCV (RBC) [Entitic vol] 96.6 fL Normal 82.0-98.0 [facility] Comment on above: Performed By: #### L [id number] ####[facility] ([facility])[address] [place] [address] Monocytes (Bld) [#/Vol] 0.99 10*3/uL Normal 0.10-1.00 [facility] Comment on above: Performed By: #### L [id number] ####[facility] ([facility])[address] [place] [address] Monocytes/100 WBC (Bld) 10.4 % Normal 5.0-12.0 [facility] Comment on above: Performed By: #### L [id number] ####[facility] ([facility])[address] [place] [address] Neutrophils (Bld) [#/Vol] 6.33 10*3/uL Normal 1.60-7.60 [facility] Comment on above: Performed By: #### L [id number] ####[facility] ([facility])[address] [place] [address] Neutrophils/100 WBC (Bld) 66.3 % Normal 40.0-72.0 [facility] Comment on above: Performed By: #### L [id number] ####[facility] ([facility])[address] [place] [address] NRBC (PER 100 WBCS) BY AUTOMATED COUNT 0.0 % Normal 0 [facility] Comment on above: Performed By: #### L [id number] ####[facility] ([facility])[address] [place] [address] PLATELETS (10*3/UL) IN BLOOD AUTOMATED COUNT 252 10*3/uL Normal 150-400 [facility] Comment on above: Performed By: #### L [id number] ####[facility] ([facility])[address] [place] [address] RBC (Bld) [#/Vol] 5.27 10*6/uL Normal 4.20-5.70 [facility] Comment on above: Performed By: #### L [id number] ####[facility] ([facility])[address] [place] [address] WBC (Bld) [#/Vol] 9.55 10*3/uL Normal 4.00-10.60 [facility] Comment on above: Performed By: #### L [id number] ####[facility] ([facility])[address] [place] [address] MAGNESIUMon 08-28-2024 Magnesium [Mass/Vol] 1.8 mg/dL Low 1.9-2.7 [facility] Comment on above: Performed By: #### L [id number] ####[facility] ([facility])[address] [place] [address] NURSNOTEon 08-28-2024 NURSNOTE Normal [facility] POCT GLUCOSE METER UNSOLICIT ED RESULTSon 08-28-2024 Glucose [Mass/Vol] 258 mg/dL High 70-[address] [facility] Comment on above: Order Comment: Waive d Testing in the ED is performed under the ED CLIA certificate #[id number]. Result Comment: [email or web address] [email or web address] Performed By: #### L [id number] ####[facility] ([facility])[address] [place] [address] Glucose [Mass/Vol] 177 mg/dL High 70-[address] [facility] Comment on above: Order Comment: Waive d Testing in the ED is performed under the ED CLIA certificate #[id number]. Result Comment: aall en70 Performed By: #### L [id number] ####[facility] ([facility])[address] [place] [address] Glucose [Mass/Vol] 242 mg/dL High 70-[address] [facility] Comment on above: Order Comment: Waive d Testing in the ED is performed under the ED CLIA certificate #[id number]. Result Comment: aall en70 Performed By: #### L [id number] ####[facility] [place] [address] Glucose [Mass/Vol] 200 mg/dL High 70-[address] [facility] Comment on above: Order Comment: Waive d Testing in the ED is performed under the ED CLIA certificate #[id number]. Result Comment: aall [email or web address] Performed By: #### L [id number] ####[facility] ([facility])[address] [place] [address] 30on 08-27-2024 30 Normal [facility] BASIC METABOLIC PANELon -0 Anion gap [Moles/Vol] 6 mmol/L Low 7-20 [facility] Comment on above: Performed By: #### L [id number] ####[facility] ([facility]ER)[address] [place] [address] Calcium [Mass/Vol] 9.8 mg/dL Normal 8.6-10.[address] [facility] Comment on above: Performed By: #### L [id number] ####[facility] [place] [address] Chloride [Moles/Vol] 97 mmol/L Low 98-107 [facility] Comment on above: Performed By: #### L [id number] ####[facility] ([facility])[address] [place] [address] CO2 [Moles/Vol] 41 mmol/L Critically high 21-31 [facility] Comment on above: Performed By: #### L [id number] ####[facility] ([facility])[address] [place] [address] Creatinine [Mass/Vol] 0.81 mg/dL Normal 0.70-1.30 [facility] Comment on above: Performed By: #### L [id number] ####[facility] ([facility])[address] [place] [address] GLOMERULAR FILTRATION RATE ML/MIN/1.73 SQ M.PREDICTED 97.8 mL/min/1.73m*2 Normal >60.0 [facility] Comment on above: Result Comment: [facility]???s estimated glomerular filtration rate (eGFR) will [...] of individuals. Performed By: #### L [id number] ####[facility] [place] [address] Glucose [Mass/Vol] 187 mg/dL High 70-[address] [facility] Comment on above: Performed By: #### L [id number] ####[facility] [place] [address] Potassium [Moles/Vol] 3.5 mmol/L Normal 3.5-5.1 [facility] Comment on above: Performed By: #### L [id number] ####[facility] ([facility])[address] [facility] [place] [address] Sodium [Moles/Vol] 140 mmol/L Normal 136-[address] [facility] Comment on above: Performed By: #### L [id number] ####[facility] ([facility])[address] [place] [address] Urea nitrogen [Mass/Vol] 16 mg/dL Normal 7-25 [facility] Comment on above: Performed By: #### L [id number] ####[facility] ([facility])[address] [place] [address] UREA NITROGEN/CREATININE (MASS RATIO) IN SER/PLAS 19.8 Normal [facility] Comment on above: Performed By: #### L [id number] ####[facility] ([facility])[address] [place] [address] CBC WITH AUTO DIFFERENTIALon 08-27-2024 Basophils (Bld) [#/Vol] 0.06 10*3/uL Normal 0.00-0.20 [facility] Comment on above: Performed By: #### L [id number] ####[facility] ([facility])[address] [place] [address] Basophils/100 WBC (Bld) 0.7 % Normal 0.0-1.0 [facility] Comment on above: Performed By: #### L [id number] ####[facility] [place] [address] Eosinophils (Bld) [#/Vol] 0.38 10*3/uL Normal 0.00-0.50 [facility] Comment on above: Performed By: #### L [id number] ####[facility] [place] [address] Eosinophils/100 WBC (Bld) 4.7 % Normal 0.0-6.0 [facility] Comment on above: Performed By: #### L [id number] ####[facility] ([facility])[address] [place] [address] Erythrocyte distribution width (RBC) [Ratio] 14.6 % Normal 11.5-15.0 [facility] Comment on above: Performed By: #### L [id number] ####[facility] ([facility] [place] [address] ERYTHROCYTE MEAN CORPUSCULAR HEMOGLOBIN CONCENTRATION (G/DL) BY AUTOMATED 29.7 g/dL Low 32.0-35.0 [facility] Comment on above: Performed By: #### L [id number] ####[facility] ([facility])[address] [place] [address] Hematocrit (Bld) [Volume fraction] 49.5 % Normal 39.0-55.0 [facility] Comment on above: Performed By: #### L [id number] ####[facility] ([facility])[address] [place] [address] Hemoglobin (Bld) [Mass/Vol] 14.7 g/dL Normal 13.0-17.0 [facility] Comment on above: Performed By: #### L [id number] ####[facility] ([facility])[address] [place] [address] Immature granulocytes (Bld) [#/Vol] 0.04 10*3/uL Normal 0.00-0.20 [facility] Comment on above: Performed By: #### L [id number] ####[facility] ([facility] [place] [address] Immature granulocytes/100 WBC (Bld) 0.5 % Normal 0.0-1.0 [facility] Comment on above: Performed By: #### L [id number] ####[facility] ([facility]AKER)[address] [place] [address] Lymphocytes (Bld) [#/Vol] 1.42 10*3/uL Normal 1.20-4.00 [facility] Comment on above: Performed By: #### L [id number] ####[facility] ([facility] [place] [address] Lymphocytes/100 WBC (Bld) 17.7 % Low 20.0-45.0 [facility] Comment on above: Performed By: #### L [id number] ####[facility] ([facility] [place] [address] MCH (RBC) [Entitic mass] 28.9 pg Normal 27.0-33.0 [facility] Comment on above: Performed By: #### L [id number] ####[facility] [place] [address] MCV (RBC) [Entitic vol] 97.4 fL Normal 82.0-98.0 [facility] Comment on above: Performed By: #### L [id number] ####[facility] ([facility])[address] [place] [address] Monocytes (Bld) [#/Vol] 0.92 10*3/uL Normal 0.10-1.00 [facility] Comment on above: Performed By: #### L [id number] ####[facility] ([facility])[address] [place] [address] Monocytes/100 WBC (Bld) 11.5 % Normal 5.0-12.0 [facility] Comment on above: Performed By: #### L [id number] ####[facility] ([facility])[address] [place] [address] Neutrophils (Bld) [#/Vol] 5.19 10*3/uL Normal 1.60-7.60 [facility] Comment on above: Performed By: #### L [id number] ####[facility] [place] [address] Neutrophils/100 WBC (Bld) 64.9 % Normal 40.0-72.0 [facility] Comment on above: Performed By: #### L [id number] ####[facility] [place] [address] NRBC (PER 100 WBCS) BY AUTOMATED COUNT 0.0 % Normal 0 [facility] Comment on above: Performed By: #### L [id number] ####[facility] ([facility])[address] [place] [address] PLATELETS (10*3/UL) IN BLOOD AUTOMATED COUNT 209 10*3/uL Normal 150-400 [facility] Comment on above: Performed By: #### L [id number] ####[facility] ([facility])[address] [place] [address] RBC (Bld) [#/Vol] 5.08 10*6/uL Normal 4.20-5.70 [facility] Comment on above: Performed By: #### L [id number] ####[facility] ([facility])[address] [place] [address] WBC (Bld) [#/Vol] 8.01 10*3/uL Normal 4.00-10.60 [facility] Comment on above: Performed By: #### L [id number] ####[facility] ([facility])[address] [place] [address] MAGNESIUMon 08-27-2024 Magnesium [Mass/Vol] 1.6 mg/dL Low 1.9-2.7 [facility] Comment on above: Performed By: #### L [id number] ####[facility] ([facility])[address] [place] [address] POCT GLUCOSE METER UNSOLICIT ED RESULTSon 08-27-2024 Glucose [Mass/Vol] 144 mg/dL High 70-[address] [facility] Comment on above: Order Comment: Waive d Testing in the ED is performed under the ED CLIA certificate #[id number]. Result Comment: [email or web address] Performed By: #### L [id number] ####[facility] ([facility])[address] [place] [address] Glucose [Mass/Vol] 204 mg/dL High 70-[address] [facility] Comment on above: Order Comment: Waive d Testing in the ED is performed under the ED CLIA certificate #[id number]. Result Comment: [email or web address] [email or web address] Performed By: #### L [id number] ####[facility] ([facility])[address] [place] [address] Glucose [Mass/Vol] 230 mg/dL High 70-[address] [facility] Comment on above: Order Comment: Waive d Testing in the ED is performed under the ED CLIA certificate #[id number]. Result Comment: [email or web address] Performed By: #### L [id number] ####[facility] ([facility] [place] [address] Glucose [Mass/Vol] 174 mg/dL High 70-[address] [facility] Comment on above: Order Comment: Waive d Testing in the ED is performed under the ED CLIA certificate #[id number]. Result Comment: [email or web address] [email or web address] Performed By: #### L [id number] ####[facility] ([facility])[address] [place] [address] BASIC METABOLIC PANELon 02-0 Anion gap [Moles/Vol] 9 mmol/L Normal 7-20 [facility] Comment on above: Performed By: #### L [id number] ####[facility] ([facility])[address] [place] [address] Calcium [Mass/Vol] 9.4 mg/dL Normal 8.6-10.[address] [facility] Comment on above: Performed By: #### L [id number] ####[facility] ([facility] [place] [address] Chloride [Moles/Vol] 100 mmol/L Normal 98-107 [facility] Comment on above: Performed By: #### L [id number] ####[facility] ([facility])[address] [place] [address] CO2 [Moles/Vol] 36 mmol/L High 21-31 [facility] Comment on above: Performed By: #### L [id number] ####[facility] ([facility])[address] [place] [address] Creatinine [Mass/Vol] 0.78 mg/dL Normal 0.70-1.30 [facility] Comment on above: Performed By: #### L [id number] ####[facility] ([facility])[address] [place] [address] GLOMERULAR FILTRATION RATE ML/MIN/1.73 SQ M.PREDICTED 99.0 mL/min/1.73m*2 Normal >60.0 [facility] Comment on above: Result Comment: [facility]???s estimated glomerular filtration rate (eGFR) will [...] of individuals. Performed By: #### L [id number] ####[facility] ([facility])[address] [place] [address] Glucose [Mass/Vol] 156 mg/dL High 70-[address] [facility] Comment on above: Performed By: #### L [id number] ####[facility] ([facility])[address] [place] [address] Potassium [Moles/Vol] 3.5 mmol/L Normal 3.5-5.1 [facility] Comment on above: Performed By: #### L [id number] ####[facility] ([facility])[address] [place] [address] Sodium [Moles/Vol] 141 mmol/L Normal 136-[address] [facility] Comment on above: Performed By: #### L [id number] ####[facility] ([facility])[address] [place] [address] Urea nitrogen [Mass/Vol] 17 mg/dL Normal 7-25 [facility] Comment on above: Performed By: #### L [id number] ####[facility] ([facility] [place] [address] UREA NITROGEN/CREATININE (MASS RATIO) IN SER/PLAS 21.8 Normal [facility] Comment on above: Performed By: #### L [id number] ####[facility] ([facility] [place] [address] CBC WITH AUTO DIFFERENTIALon 08-26-2024 Basophils (Bld) [#/Vol] 0.06 10*3/uL Normal 0.00-0.20 [facility] Comment on above: Performed By: #### L [id number] ####[facility] ([facility])[address] [place] [address] Basophils/100 WBC (Bld) 0.8 % Normal 0.0-1.0 [facility] Comment on above: Performed By: #### L [id number] ####[facility] ([facility])[address] [place] [address] Eosinophils (Bld) [#/Vol] 0.39 10*3/uL Normal 0.00-0.50 [facility] Comment on above: Performed By: #### L [id number] ####[facility] ([facility])[address] [place] [address] Eosinophils/100 WBC (Bld) 5.4 % Normal 0.0-6.0 [facility] Comment on above: Performed By: #### L [id number] ####[facility] ([facility])[address] [place] [address] Erythrocyte distribution width (RBC) [Ratio] 14.7 % Normal 11.5-15.0 [facility] Comment on above: Performed By: #### L [id number] ####[facility] ([facility] [place] [address] ERYTHROCYTE MEAN CORPUSCULAR HEMOGLOBIN CONCENTRATION (G/DL) BY AUTOMATED 30.4 g/dL Low 32.0-35.0 [facility] Comment on above: Performed By: #### L [id number] ####[facility] ([facility])[address] [place] [address] Hematocrit (Bld) [Volume fraction] 49.0 % Normal 39.0-55.0 [facility] Comment on above: Performed By: #### L [id number] ####[facility] ([facility])[address] [place] [address] Hemoglobin (Bld) [Mass/Vol] 14.9 g/dL Normal 13.0-17.0 [facility] Comment on above: Performed By: #### L [id number] ####[facility] ([facility])[address] [place] [address] Immature granulocytes (Bld) [#/Vol] 0.03 10*3/uL Normal 0.00-0.20 [facility] Comment on above: Performed By: #### L [id number] ####[facility] ([facility])[address] [place] [address] Immature granulocytes/100 WBC (Bld) 0.4 % Normal 0.0-1.0 [facility] Comment on above: Performed By: #### L [id number] ####[facility] ([facility])[address] [place] [address] Lymphocytes (Bld) [#/Vol] 1.21 10*3/uL Normal 1.20-4.00 [facility] Comment on above: Performed By: #### L [id number] ####[facility] ([facility])[address] [place] [address] Lymphocytes/100 WBC (Bld) 16.7 % Low 20.0-45.0 [facility] Comment on above: Performed By: #### L [id number] ####[facility] ([facility])[address] [place] [address] MCH (RBC) [Entitic mass] 29.2 pg Normal 27.0-33.0 [facility] Comment on above: Performed By: #### L [id number] ####[facility] ([facility])[address] [place] [address] MCV (RBC) [Entitic vol] 96.1 fL Normal 82.0-98.0 [facility] Comment on above: Performed By: #### L [id number] ####[facility] ([facility])[address] [place] [address] Monocytes (Bld) [#/Vol] 0.86 10*3/uL Normal 0.10-1.00 [facility] Comment on above: Performed By: #### L [id number] ####[facility] ([facility])[address] [place] [address] Monocytes/100 WBC (Bld) 11.9 % Normal 5.0-12.0 [facility] Comment on above: Performed By: #### L [id number] ####[facility] ([facility])[address] [place] [address] Neutrophils (Bld) [#/Vol] 4.70 10*3/uL Normal 1.60-7.60 [facility] Comment on above: Performed By: #### L [id number] ####[facility] ([facility] [place] [address] Neutrophils/100 WBC (Bld) 64.8 % Normal 40.0-72.0 [facility] Comment on above: Performed By: #### L [id number] ####[facility] ([facility])[address] [place] [address] NRBC (PER 100 WBCS) BY AUTOMATED COUNT 0.0 % Normal 0 [facility] Comment on above: Performed By: #### L [id number] ####[facility] ([facility])[address] [place] [address] PLATELETS (10*3/UL) IN BLOOD AUTOMATED COUNT 208 10*3/uL Normal 150-400 [facility] Comment on above: Performed By: #### L [id number] ####[facility] ([facility])[address] [place] [address] RBC (Bld) [#/Vol] 5.10 10*6/uL Normal 4.20-5.70 [facility] Comment on above: Performed By: #### L [id number] ####[facility] ([facility])[address] [place] [address] WBC (Bld) [#/Vol] 7.25 10*3/uL Normal 4.00-10.60 [facility] Comment on above: Performed By: #### L [id number] ####[facility] ([facility])[address] [place] [address] MAGNESIUMon 08-26-2024 Magnesium [Mass/Vol] 1.8 mg/dL Low 1.9-2.7 [facility] Comment on above: Performed By: #### L [id number] ####[facility] ([facility])[address] [place] [address] POCT GLUCOSE METER UNSOLICIT ED RESULTSon 08-26-2024 Glucose [Mass/Vol] 246 mg/dL High 70-[address] [facility] Comment on above: Order Comment: Waive d Testing in the ED is performed under the ED CLIA certificate #[id number]. Result Comment: [email or web address] Performed By: #### L [id number] ####[facility] ([facility])[address] [place] [address] Glucose [Mass/Vol] 204 mg/dL High 70-[address] [facility] Comment on above: Order Comment: Waive d Testing in the ED is performed under the ED CLIA certificate #[id number]. Result Comment: [email or web address] Performed By: #### L [id number] ####[facility] ([facility])[address] [place] [address] Glucose [Mass/Vol] 219 mg/dL High 70-[address] [facility] Comment on above: Order Comment: Waive d Testing in the ED is performed under the ED CLIA certificate #[id number]. Result Comment: [email or web address] Performed By: #### L [id number] ####[facility] ([facility])[address] [place] [address] Glucose [Mass/Vol] 163 mg/dL High 70-[address] [facility] Comment on above: Order Comment: Waive d Testing in the ED is performed under the ED CLIA certificate #[id number]. Result Comment: [email or web address] Performed By: #### L [id number] ####[facility] ([facility] [place] [address] 30on 08-25-2024 30 Normal [facility] BASIC METABOLIC PANELon Anion gap [Moles/Vol] 10 mmol/L Normal 7-20 [facility] Comment on above: Performed By: #### L [id number] ####[facility] ([facility])[address] [place] [address] Calcium [Mass/Vol] 9.5 mg/dL Normal 8.6-10.[address] [facility] Comment on above: Performed By: #### L [id number] ####[facility] ([facility])[address] [place] [address] Chloride [Moles/Vol] 97 mmol/L Low 98-107 [facility] Comment on above: Performed By: #### L [id number] ####[facility] ([facility])[address] [place] [address] CO2 [Moles/Vol] 34 mmol/L High 21-31 [facility] Comment on above: Performed By: #### L [id number] ####[facility] ([facility] [place] [address] Creatinine [Mass/Vol] 0.87 mg/dL Normal 0.70-1.30 [facility] Comment on above: Performed By: #### L [id number] ####[facility] ([facility])[address] [place] [address] GLOMERULAR FILTRATION RATE ML/MIN/1.73 SQ M.PREDICTED 95.8 mL/min/1.73m*2 Normal >60.0 [facility] Comment on above: Result Comment: [facility]???s estimated glomerular filtration rate (eGFR) will [...] of individuals. Performed By: #### L [id number] ####[facility] ([facility])[address] [place] [address] Glucose [Mass/Vol] 178 mg/dL High 70-[address] [facility] Comment on above: Performed By: #### L [id number] ####[facility] ([facility])[address] [place] [address] Potassium [Moles/Vol] 3.5 mmol/L Normal 3.5-5.1 [facility] Comment on above: Performed By: #### L [id number] ####[facility] ([facility])[address] [place] [address] Sodium [Moles/Vol] 137 mmol/L Normal 136-[address] [facility] Comment on above: Performed By: #### L [id number] ####[facility] ([facility])[address] [place] [address] Urea nitrogen [Mass/Vol] 20 mg/dL Normal 7-25 [facility] Comment on above: Performed By: #### L [id number] ####[facility] ([facility])[address] [place] [address] UREA NITROGEN/CREATININE (MASS RATIO) IN SER/PLAS 23.0 Normal [facility] Comment on above: Performed By: #### L [id number] ####[facility] ([facility])[address] [place] [address] CBC WITH AUTO DIFFERENTIALon 08-25-2024 Basophils (Bld) [#/Vol] 0.04 10*3/uL Normal 0.00-0.20 [facility] Comment on above: Performed By: #### L [id number] ####[facility] ([facility])[address] [place] [address] Basophils/100 WBC (Bld) 0.6 % Normal 0.0-1.0 [facility] Comment on above: Performed By: #### L [id number] ####[facility] ([facility]ER)[address] [place] [address] Eosinophils (Bld) [#/Vol] 0.22 10*3/uL Normal 0.00-0.50 [facility] Comment on above: Performed By: #### L [id number] ####[facility] ([facility]ER)[address] [place] [address] Eosinophils/100 WBC (Bld) 3.1 % Normal 0.0-6.0 [facility] Comment on above: Performed By: #### L [id number] ####[facility] ([facility]ER)[address] [place] [address] Erythrocyte distribution width (RBC) [Ratio] 14.6 % Normal 11.5-15.0 [facility] Comment on above: Performed By: #### L [id number] ####[facility] ([facility])[address] [place] [address] ERYTHROCYTE MEAN CORPUSCULAR HEMOGLOBIN CONCENTRATION (G/DL) BY AUTOMATED 30.6 g/dL Low 32.0-35.0 [facility] Comment on above: Performed By: #### L [id number] ####[facility] ([facility]ER)[address] [place] [address] Hematocrit (Bld) [Volume fraction] 49.4 % Normal 39.0-55.0 [facility] Comment on above: Performed By: #### L [id number] ####[facility] ([facility])[address] [place] [address] Hemoglobin (Bld) [Mass/Vol] 15.1 g/dL Normal 13.0-17.0 [facility] Comment on above: Performed By: #### L [id number] ####[facility] ([facility])[address] [place] [address] Immature granulocytes (Bld) [#/Vol] 0.04 10*3/uL Normal 0.00-0.20 [facility] Comment on above: Performed By: #### L [id number] ####[facility] ([facility]ER)[address] [place] [address] Immature granulocytes/100 WBC (Bld) 0.6 % Normal 0.0-1.0 [facility] Comment on above: Performed By: #### L [id number] ####[facility] ([facility])[address] [place] [address] Lymphocytes (Bld) [#/Vol] 1.08 10*3/uL Low 1.20-4.00 [facility] Comment on above: Performed By: #### L [id number] ####[facility] ([facility])[address] [place] [address] Lymphocytes/100 WBC (Bld) 15.1 % Low 20.0-45.0 [facility] Comment on above: Performed By: #### L [id number] ####[facility] ([facility])[address] [place] [address] MCH (RBC) [Entitic mass] 28.9 pg Normal 27.0-33.0 [facility] Comment on above: Performed By: #### L [id number] ####[facility] ([facility]ER)[address] [place] [address] MCV (RBC) [Entitic vol] 94.6 fL Normal 82.0-98.0 [facility] Comment on above: Performed By: #### L [id number] ####[facility] ([facility])[address] [place] [address] Monocytes (Bld) [#/Vol] 0.94 10*3/uL Normal 0.10-1.00 [facility] Comment on above: Performed By: #### L [id number] ####[facility] ([facility])[address] [place] [address] Monocytes/100 WBC (Bld) 13.1 % High 5.0-12.0 [facility] Comment on above: Performed By: #### L [id number] ####[facility] [place] [address] Neutrophils (Bld) [#/Vol] 4.85 10*3/uL Normal 1.60-7.60 [facility] Comment on above: Performed By: #### L [id number] ####[facility] ([facility])[address] [place] [address] Neutrophils/100 WBC (Bld) 67.5 % Normal 40.0-72.0 [facility] Comment on above: Performed By: #### L [id number] ####[facility] ([facility])[address] [place] [address] NRBC (PER 100 WBCS) BY AUTOMATED COUNT 0.0 % Normal 0 [facility] Comment on above: Performed By: #### L [id number] ####[facility] ([facility])[address] [place] [address] PLATELETS (10*3/UL) IN BLOOD AUTOMATED COUNT 200 10*3/uL Normal 150-400 [facility] Comment on above: Performed By: #### L [id number] ####[facility] ([facility])[address] [place] [address] RBC (Bld) [#/Vol] 5.22 10*6/uL Normal 4.20-5.70 [facility] Comment on above: Performed By: #### L [id number] ####[facility] (BEAKER)[address] [place], [place] [address] WBC (Bld) [#/Vol] 7.17 10*3/uL Normal 4.00-10.60 [facility] Comment on above: Performed By: #### L [id number] ####[facility] (BEAKER)[address] [place] [address] MAGNESIUMon 02-05-2025 Magnesium [Mass/Vol] 1.6 mg/dL Low 1.9-2.7 [facility] Comment on above: Performed By: #### L [id number] ####[facility] ([facility])[address] [place] [address] POCT GLUCOSE METER UNSOLICIT ED RESULTSon 08-25-2024 Glucose [Mass/Vol] 154 mg/dL High 70-[address] [facility] Comment on above: Order Comment: Waive d Testing in the ED is performed under the ED CLIA certificate #[id number]. Result Comment: [email or web address] Performed By: #### L [id number] ####[facility] ([facility])[address] [facility] [address] Glucose [Mass/Vol] 196 mg/dL High 70-[address] [facility] Comment on above: Order Comment: Waive d Testing in the ED is performed under the ED CLIA certificate #[id number]. Result Comment: [email or web address] [email or web address] Performed By: #### L [id number] ####[facility] ([facility])[address] [place] [address] Glucose [Mass/Vol] 313 mg/dL High 70-[address] [facility] Comment on above: Order Comment: Waive d Testing in the ED is performed under the ED CLIA certificate #[id number]. Result Comment: [email or web address] [email or web address] Performed By: #### L [id number] ####[facility] ([facility])[address] [place] [address] Glucose [Mass/Vol] 164 mg/dL High 70-[address] [facility] Comment on above: Order Comment: Waive d Testing in the ED is performed under the ED CLIA certificate #[id number]. Result Comment: [email or web address] [email or web address] Performed By: #### L [id number] ####[facility] ([facility])[address] [place] [address] 30on 08-24-2024 30 Normal [facility] ANTI-XA (HEPARIN LEVEL)on HEPARIN UNFRACTIONATED (U/ML) IN PPP BY CHROMOGENIC METHOD 0.21 IU/mL Low 0.3-0.7 [facility] Comment on above: Result Comment: Tatyana roxaban and Apixaban will interfere with the anti Xa assay used to monitor UFH and LMWH. Performed By: #### L [id number] ####[facility] ([facility])[address] [place] [address] B-TYPE NATRIURETIC PEPTIDEon 08-24-2024 Natriuretic peptide B (Bld) [Mass/Vol] 143 pg/mL High 0-100 [facility] Comment on above: Performed By: #### L [id number] ####[facility] ([facility])[address] [place] [address] BASIC METABOLIC PANELon Anion gap [Moles/Vol] 11 mmol/L Normal 7-20 [facility] Comment on above: Performed By: #### L [id number] ####[facility] ([facility])[address] [place] [address] Calcium [Mass/Vol] 9.7 mg/dL Normal 8.6-10.[address] [facility] Comment on above: Performed By: #### L [id number] ####[facility] ([facility])[address] [place] [address] Chloride [Moles/Vol] 98 mmol/L Normal 98-107 [facility] Comment on above: Performed By: #### L [id number] ####[facility] ([facility] [place] [address] CO2 [Moles/Vol] 33 mmol/L High 21-31 [facility] Comment on above: Performed By: #### L [id number] ####[facility] ([facility] [place] [address] Creatinine [Mass/Vol] 0.93 mg/dL Normal 0.70-1.30 [facility] Comment on above: Performed By: #### L [id number] ####[facility] ([facility] [place] [address] GLOMERULAR FILTRATION RATE ML/MIN/1.73 SQ M.PREDICTED 91.1 mL/min/1.73m*2 Normal >60.0 [facility] Comment on above: Result Comment: [facility]???s estimated glomerular filtration rate (eGFR) will [...] of individuals. Performed By: #### L [id number] ####[facility] ([facility])[address] [place] [address] Glucose [Mass/Vol] 166 mg/dL High 70-[address] [facility] Comment on above: Performed By: #### L [id number] ####[facility] ([facility])[address] [place] [address] Potassium [Moles/Vol] 3.8 mmol/L Normal 3.5-5.1 [facility] Comment on above: Performed By: #### L [id number] ####[facility] ([facility])[address] [place] [address] Sodium [Moles/Vol] 138 mmol/L Normal 136-[address] [facility] Comment on above: Performed By: #### L [id number] ####[facility] (BEAKER)[address] [place] [address] Urea nitrogen [Mass/Vol] 23 mg/dL Normal 7-25 [facility] Comment on above: Performed By: #### L [id number] ####[facility] ([facility])[address] [place] [address] UREA NITROGEN/CREATININE (MASS RATIO) IN SER/PLAS 24.7 Normal [facility] Comment on above: Performed By: #### L [id number] ####[facility] ([facility] [place] [address] Anion gap [Moles/Vol] 10 mmol/L Normal 7-20 [facility] Comment on above: Performed By: #### L [id number] ####[facility] (BEAKER)[address] [place] [address] Calcium [Mass/Vol] 9.4 mg/dL Normal 8.6-10.[address] [facility] Comment on above: Performed By: #### L [id number] ####[facility] (BEAKER)[address] [place] [address] Chloride [Moles/Vol] 98 mmol/L Normal 98-107 [facility] Comment on above: Performed By: #### L [id number] ####[facility] (BEAKER)[address] [place] [address] CO2 [Moles/Vol] 33 mmol/L High 21-31 [facility] Comment on above: Performed By: #### L [id number] ####[facility] ([facility] [place] [address] Creatinine [Mass/Vol] 0.88 mg/dL Normal 0.70-1.30 [facility] Comment on above: Performed By: #### L [id number] ####[facility] ([facility] [place] [address] GLOMERULAR FILTRATION RATE ML/MIN/1.73 SQ M.PREDICTED 95.4 mL/min/1.73m*2 Normal >60.0 [facility] Comment on above: Result Comment: [facility]???s estimated glomerular filtration rate (eGFR) will [...] of individuals. Performed By: #### L [id number] ####[facility] ([facility])[address] [place] [address] Glucose [Mass/Vol] 132 mg/dL High 70-[address] [facility] Comment on above: Performed By: #### L [id number] ####[facility] ([facility])[address] [place] [address] Potassium [Moles/Vol] 2.9 mmol/L Invalid Interpretation Code 3.5-5.1 [facility] Comment on above: Performed By: #### L [id number] ####[facility] ([facility])[address] [place] [address] Sodium [Moles/Vol] 138 mmol/L Normal 136-[address] [facility] Comment on above: Performed By: #### L [id number] ####[facility] ([facility])[address] [place] [address] Urea nitrogen [Mass/Vol] 24 mg/dL Normal 7-25 [facility] Comment on above: Performed By: #### L [id number] ####[facility] ([facility])[address] [place] [address] UREA NITROGEN/CREATININE (MASS RATIO) IN SER/PLAS 27.3 Normal [facility] Comment on above: Performed By: #### L [id number] ####[facility] ([facility])[address] [place] [address] CBC WITH AUTO DIFFERENTIALon 08-24-2024 Basophils (Bld) [#/Vol] 0.06 10*3/uL Normal 0.00-0.20 [facility] Comment on above: Performed By: #### L [id number] ####[facility] ([facility])[address] [place] [address] Basophils/100 WBC (Bld) 0.8 % Normal 0.0-1.0 [facility] Comment on above: Performed By: #### L [id number] ####[facility] ([facility])[address] [place] [address] Eosinophils (Bld) [#/Vol] 0.46 10*3/uL Normal 0.00-0.50 [facility] Comment on above: Performed By: #### L [id number] ####[facility] (BEAKER)[address] [place] [address] Eosinophils/100 WBC (Bld) 5.9 % Normal 0.0-6.0 [facility] Comment on above: Performed By: #### L [id number] ####[facility] (BEAKER)[address] [place] [address] Erythrocyte distribution width (RBC) [Ratio] 14.7 % Normal 11.5-15.0 [facility] Comment on above: Performed By: #### L [id number] ####[facility] (BEAKER)[address] [place] [address] ERYTHROCYTE MEAN CORPUSCULAR HEMOGLOBIN CONCENTRATION (G/DL) BY AUTOMATED 31.3 g/dL Low 32.0-35.0 [facility] Comment on above: Performed By: #### L [id number] ####[facility] (BEAKER)[address] [place] [address] Hematocrit (Bld) [Volume fraction] 50.8 % Normal 39.0-55.0 [facility] Comment on above: Performed By: #### L [id number] ####[facility] (BEAKER)[address] [place] [address] Hemoglobin (Bld) [Mass/Vol] 15.9 g/dL Normal 13.0-17.0 [facility] Comment on above: Performed By: #### L [id number] ####[facility] (BEAKER)[address] [place] [address] Immature granulocytes (Bld) [#/Vol] 0.04 10*3/uL Normal 0.00-0.20 [facility] Comment on above: Performed By: #### L [id number] ####[facility] (BEAKER)[address] [place] [address] Immature granulocytes/100 WBC (Bld) 0.5 % Normal 0.0-1.0 [facility] Comment on above: Performed By: #### L [id number] ####[facility] ([facility])[address] [place] [address] Lymphocytes (Bld) [#/Vol] 1.23 10*3/uL Normal 1.20-4.00 [facility] Comment on above: Performed By: #### L [id number] ####[facility] ([facility])[address] [place] [address] Lymphocytes/100 WBC (Bld) 15.8 % Low 20.0-45.0 [facility] Comment on above: Performed By: #### L [id number] ####[facility] ([facility])[address] [place] [address] MCH (RBC) [Entitic mass] 29.1 pg Normal 27.0-33.0 [facility] Comment on above: Performed By: #### L [id number] ####[facility] ([facility])[address] [place] [address] MCV (RBC) [Entitic vol] 92.9 fL Normal 82.0-98.0 [facility] Comment on above: Performed By: #### L [id number] ####[facility] ([facility] [place] [address] Monocytes (Bld) [#/Vol] 0.96 10*3/uL Normal 0.10-1.00 [facility] Comment on above: Performed By: #### L [id number] ####[facility] ([facility] [place] [address] Monocytes/100 WBC (Bld) 12.4 % High 5.0-12.0 [facility] Comment on above: Performed By: #### L [id number] ####[facility] (BEAKER)[address] [place] [address] Neutrophils (Bld) [#/Vol] 5.02 10*3/uL Normal 1.60-7.60 [facility] Comment on above: Performed By: #### L [id number] ####[facility] ([facility] [place] [address] Neutrophils/100 WBC (Bld) 64.6 % Normal 40.0-72.0 [facility] Comment on above: Performed By: #### L [id number] ####[facility] ([facility])[address] [place] [address] NRBC (PER 100 WBCS) BY AUTOMATED COUNT 0.0 % Normal 0 [facility] Comment on above: Performed By: #### L [id number] ####[facility] ([facility])[address] [place] [address] PLATELETS (10*3/UL) IN BLOOD AUTOMATED COUNT 194 10*3/uL Normal 150-400 [facility] Comment on above: Performed By: #### L [id number] ####[facility] ([facility])[address] [place] [address] RBC (Bld) [#/Vol] 5.47 10*6/uL Normal 4.20-5.70 [facility] Comment on above: Performed By: #### L [id number] ####[facility] ([facility])[address] [place] [address] WBC (Bld) [#/Vol] 7.77 10*3/uL Normal 4.00-10.60 [facility] Comment on above: Performed By: #### L [id number] ####[facility] ([facility])[address] [place] [address] CONSULTon 08-24-2024 CONSULT Normal [facility] CT HEAD WO IV CONTRASTon CT HEAD WO IV CONTRAST Invalid Interpretation Code [facility] CTA CHEST W IV CONTRASTon CTA CHEST W IV CONTRAST Normal [facility] MAGNESIUMon 08-24-2024 Magnesium [Mass/Vol] 1.7 mg/dL Low 1.9-2.7 [facility] Comment on above: Performed By: #### L [id number] ####[facility] ([facility])[address] [place] [address] Magnesium [Mass/Vol] 1.4 mg/dL Low 1.9-2.7 [facility] Comment on above: Performed By: #### L [id number] ####[facility] ([facility])[address] [place] [address] NURSNOTEon 08-24-2024 NURSNOTE Normal [facility] NURSNOTE Normal [facility] PHOSPHORUSon 08-24-2024 Magnesium [Mass/Vol] 3.4 mg/dL Normal 2.5-5.0 [facility] Comment on above: Performed By: #### L [id number] ####[facility] ([facility])[address] [place] [address] POCT GLUCOSE METER UNSOLICIT ED RESULTSon 08-24-2024 Glucose [Mass/Vol] 182 mg/dL High 70-[address] [facility] Comment on above: Order Comment: Waive d Testing in the ED is performed under the ED CLIA certificate #[id number]. Result Comment: droc kol Performed By: #### L [id number] ####[facility] ([facility])[address] [place] [address] Glucose [Mass/Vol] 166 mg/dL High 70-[address] [facility] Comment on above: Order Comment: Waive d Testing in the ED is performed under the ED CLIA certificate #[id number]. Result Comment: sbel cad Performed By: #### L [id number] ####[facility] ([facility])[address] [place] [address] Glucose [Mass/Vol] 150 mg/dL High 70-[address] [facility] Comment on above: Order Comment: Waive d Testing in the ED is performed under the ED CLIA certificate #[id number]. Result Comment: besc obe Performed By: #### L [id number] ####[facility] ([facility])[address] [place] [address] Glucose [Mass/Vol] 136 mg/dL High 70-[address] [facility] Comment on above: Order Comment: Waive d Testing in the ED is performed under the ED CLIA certificate #[id number]. Result Comment: [email or web address] [id number] Value Noted Performed By: #### L [id number] ####[facility] ([facility])[address] [place] [address] BASIC METABOLIC PANELon 02-0 Anion gap [Moles/Vol] 10 mmol/L Normal 7-20 [facility] Comment on above: Performed By: #### L [id number] ####[facility] ([facility])[address] [place] [address] Calcium [Mass/Vol] 9.8 mg/dL Normal 8.6-10.[address] [facility] Comment on above: Performed By: #### L [id number] ####[facility] ([facility])[address] [place] [address] Chloride [Moles/Vol] 99 mmol/L Normal 98-107 [facility] Comment on above: Performed By: #### L [id number] ####[facility] ([facility])[address] [place] [address] CO2 [Moles/Vol] 33 mmol/L High 21-31 [facility] Comment on above: Performed By: #### L [id number] ####[facility] ([facility])[address] [place] [address] Creatinine [Mass/Vol] 0.94 mg/dL Normal 0.70-1.30 [facility] Comment on above: Performed By: #### L [id number] ####[facility] ([facility])[address] [place] [address] GLOMERULAR FILTRATION RATE ML/MIN/1.73 SQ M.PREDICTED 90.0 mL/min/1.73m*2 Normal >60.0 [facility] Comment on above: Result Comment: [facility]???s estimated glomerular filtration rate (eGFR) will [...] of individuals. Performed By: #### L [id number] ####[facility] ([facility])[address] [facility] [address] Glucose [Mass/Vol] 274 mg/dL High 70-[address] [facility] Comment on above: Performed By: #### L [id number] ####[facility] ([facility])[address] [facility] [address] Potassium [Moles/Vol] 3.8 mmol/L Normal 3.5-5.1 [facility] Comment on above: Performed By: #### L [id number] ####[facility] ([facility])[address] [facility] [address] Sodium [Moles/Vol] 138 mmol/L Normal 136-[address] [facility] Comment on above: Performed By: #### L [id number] ####[facility] ([facility])[address] [facility] [address] Urea nitrogen [Mass/Vol] 31 mg/dL High 7-25 [facility] Comment on above: Performed By: #### L [id number] ####[facility] ([facility])[address] [facility] [address] UREA NITROGEN/CREATININE (MASS RATIO) IN SER/PLAS 33.0 Normal [facility] Comment on above: Performed By: #### L [id number] ####[facility] ([facility])[address] [place] [address] CBC WITH AUTO DIFFERENTIALon 08-23-2024 Basophils (Bld) [#/Vol] 0.06 10*3/uL Normal 0.00-0.20 [facility] Comment on above: Performed By: #### L [id number] ####[facility] (BEAKER)[address] [place] [address] Basophils/100 WBC (Bld) 0.9 % Normal 0.0-1.0 [facility] Comment on above: Performed By: #### L [id number] ####[facility] (BEAKER)[address] [place] [address] Eosinophils (Bld) [#/Vol] 0.34 10*3/uL Normal 0.00-0.50 [facility] Comment on above: Performed By: #### L [id number] ####[facility] (BEAKER)[address] [place] [address] Eosinophils/100 WBC (Bld) 4.8 % Normal 0.0-6.0 [facility] Comment on above: Performed By: #### L [id number] ####[facility] (BEAKER)[address] [place] [address] Erythrocyte distribution width (RBC) [Ratio] 14.7 % Normal 11.5-15.0 [facility] Comment on above: Performed By: #### L [id number] ####[facility] (BEAKER)[address] [place] [address] ERYTHROCYTE MEAN CORPUSCULAR HEMOGLOBIN CONCENTRATION (G/DL) BY AUTOMATED 31.8 g/dL Low 32.0-35.0 [facility] Comment on above: Performed By: #### L [id number] ####[facility] (BEAKER)[address] [place] [address] Hematocrit (Bld) [Volume fraction] 52.5 % Normal 39.0-55.0 [facility] Comment on above: Performed By: #### L [id number] ####[facility] (BEAKER)[address] [place] [address] Hemoglobin (Bld) [Mass/Vol] 16.7 g/dL Normal 13.0-17.0 [facility] Comment on above: Performed By: #### L [id number] ####[facility] (BEAKER)[address] [facility] [place] [address] Immature granulocytes (Bld) [#/Vol] 0.05 10*3/uL Normal 0.00-0.20 [facility] Comment on above: Performed By: #### L [id number] ####[facility] (BEAKER)[address] [place] [address] Immature granulocytes/100 WBC (Bld) 0.7 % Normal 0.0-1.0 [facility] Comment on above: Performed By: #### L [id number] ####[facility] (BEAKER)[address] [place] [address] Lymphocytes (Bld) [#/Vol] 1.15 10*3/uL Low 1.20-4.00 [facility] Comment on above: Performed By: #### L [id number] ####[facility] (BEAKER)[address] [place] [address] Lymphocytes/100 WBC (Bld) 16.4 % Low 20.0-45.0 [facility] Comment on above: Performed By: #### L [id number] ####[facility] (BEAKER)[address] [place] [address] MCH (RBC) [Entitic mass] 29.0 pg Normal 27.0-33.0 [facility] Comment on above: Performed By: #### L [id number] ####[facility] (BEAKER)[address] [place] [address] MCV (RBC) [Entitic vol] 91.1 fL Normal 82.0-98.0 [facility] Comment on above: Performed By: #### L [id number] ####[facility] (BEAKER)[address] [facility] [place] [place] [address] Monocytes (Bld) [#/Vol] 0.85 10*3/uL Normal 0.10-1.00 [facility] Comment on above: Performed By: #### L [id number] ####[facility] (BEAKER)[address] [facility] [place] [place] [address] Monocytes/100 WBC (Bld) 12.1 % High 5.0-12.0 [facility] Comment on above: Performed By: #### L [id number] ####[facility] ([facility])[address] [place] [address] Neutrophils (Bld) [#/Vol] 4.58 10*3/uL Normal 1.60-7.60 [facility] Comment on above: Performed By: #### L [id number] ####[facility] ([facility])[address] [place] [address] Neutrophils/100 WBC (Bld) 65.1 % Normal 40.0-72.0 [facility] Comment on above: Performed By: #### L [id number] ####[facility] ([facility])[address] [place] [address] NRBC (PER 100 WBCS) BY AUTOMATED COUNT 0.0 % Normal 0 [facility] Comment on above: Performed By: #### L [id number] ####[facility] ([facility])[address] [place] [address] PLATELETS (10*3/UL) IN BLOOD AUTOMATED COUNT 190 10*3/uL Normal 150-400 [facility] Comment on above: Performed By: #### L [id number] ####[facility] ([facility])[address] [place] [address] RBC (Bld) [#/Vol] 5.76 10*6/uL High 4.20-5.70 [facility] Comment on above: Performed By: #### L [id number] ####[facility] ([facility])[address] [place] [address] WBC (Bld) [#/Vol] 7.03 10*3/uL Normal 4.00-10.60 [facility] Comment on above: Performed By: #### L [id number] ####[facility] (BEAKER)[address] [place] [address] CONSULTon 08-23-2024 CONSULT Normal [facility] LIPID PANELon 08-23-2024 CHOL/HDL 7.8 mg/dL Normal [facility] Comment on above: Performed By: #### L [id number] ####[facility] (BEAKER)[address] [place] [address] Cholesterol [Mass/Vol] 195 mg/dL Normal 120-200 [facility] Comment on above: Performed By: #### L [id number] ####[facility] [place] [address] Magnesium [Mass/Vol] 177 mg/dL High 40-149 [facility] Comment on above: Result Comment: TRIG LYCERIDE REFERENCE RANGE:20 YEARS AND OLDER CARDIOVASCULAR RISKLESS THAN 150 mg/dL LOW [id number] TO 199 mg/dL BORDERLINE [id number] mg/dL AND GREATER HIGH RISK Performed By: #### L [id number] ####[facility] [place] [address] Magnesium [Mass/Vol] 135 mg/dL Normal 0-160 [facility] Comment on above: Performed By: #### L [id number] ####[facility] (BEAKER)[address] [place] [address] Magnesium [Mass/Vol] 25 mg/dL Normal 23-92 [facility] Comment on above: Performed By: #### L [id number] ####[facility] (BEAKER)[address] [place] [address] NON HDL CHOL. (LDL+VLDL) 170 Normal [facility] Comment on above: Performed By: #### L [id number] ####[facility] (BEAKER)[address] [place] [address] TOTAL VLDL-C 35 mg/dL Normal 0-40 [facility] Comment on above: Performed By: #### L [id number] ####[facility] (BEAKER)[address] [place] [address] POCT GLUCOSE METER UNSOLICIT ED RESULTSon 08-23-2024 Glucose [Mass/Vol] 169 mg/dL High 70-[address] [facility] Comment on above: Order Comment: Waive d Testing in the ED is performed under the ED CLIA certificate #[id number]. Result Comment: enoch tti Performed By: #### L [id number] ####[facility] ([facility])[address] [place] [address] Glucose [Mass/Vol] 183 mg/dL High 70-[address] [facility] Comment on above: Order Comment: Waive d Testing in the ED is performed under the ED CLIA certificate #[id number]. Result Comment: ezab ors2 Performed By: #### L [id number] ####[facility] ([facility])[address] [place] [address] Glucose [Mass/Vol] 283 mg/dL High 70-[address] [facility] Comment on above: Order Comment: Waive d Testing in the ED is performed under the ED CLIA certificate #[id number]. Result Comment: ezab ors2 Performed By: #### L [id number] ####[facility] ([facility])[address] [place] [address] Glucose [Mass/Vol] 258 mg/dL High 70-[address] [facility] Comment on above: Order Comment: Waive d Testing in the ED is performed under the ED CLIA certificate #[id number]. Result Comment: tful ks2 Performed By: #### L [id number] ####[facility] ([facility])[address] [place] [address] 30on 08-22-2024 30 Normal [facility] ANTI-XA (HEPARIN LEVEL)on HEPARIN UNFRACTIONATED (U/ML) IN PPP BY CHROMOGENIC METHOD 0.31 IU/mL Normal 0.3-0.7 [facility] Comment on above: Result Comment: [place] roxaban and Apixaban will interfere with the anti Xa assay used to monitor UFH and LMWH. Performed By: #### L [id number] ####[facility] ([facility])[address] [place] [address] BASIC METABOLIC PANELon Anion gap [Moles/Vol] 10 mmol/L Normal 7-20 [facility] Comment on above: Performed By: #### L [id number] ####[facility] ([facility])[address] [place] [address] Calcium [Mass/Vol] 9.6 mg/dL Normal 8.6-10.[address] [facility] Comment on above: Performed By: #### L [id number] ####[facility] ([facility])[address] [place] [address] Chloride [Moles/Vol] 102 mmol/L Normal 98-107 [facility] Comment on above: Performed By: #### L [id number] ####[facility] ([facility])[address] [place] [address] CO2 [Moles/Vol] 32 mmol/L High 21-31 [facility] Comment on above: Performed By: #### L [id number] ####[facility] ([facility])[address] [place] [address] Creatinine [Mass/Vol] 1.01 mg/dL Normal 0.70-1.30 [facility] Comment on above: Performed By: #### L [id number] ####[facility] ([facility])[address] [place] [address] GLOMERULAR FILTRATION RATE ML/MIN/1.73 SQ M.PREDICTED 82.5 mL/min/1.73m*2 Normal >60.0 [facility] Comment on above: Result Comment: [facility]???s estimated glomerular filtration rate (eGFR) will [...] of individuals. Performed By: #### L [id number] ####[facility] ([facility] [place] [address] Glucose [Mass/Vol] 263 mg/dL High 70-[address] [facility] Comment on above: Performed By: #### L [id number] ####[facility] ([facility])[address] [place] [address] Potassium [Moles/Vol] 3.7 mmol/L Normal 3.5-5.1 [facility] Comment on above: Performed By: #### L [id number] ####[facility] ([facility])[address] [place] [address] Sodium [Moles/Vol] 140 mmol/L Normal 136-[address] [facility] Comment on above: Performed By: #### L [id number] ####[facility] ([facility])[address] [place] [address] Urea nitrogen [Mass/Vol] 33 mg/dL High 7-25 [facility] Comment on above: Performed By: #### L [id number] ####[facility] ([facility])[address] [place] [address] UREA NITROGEN/CREATININE (MASS RATIO) IN SER/PLAS 32.7 Normal [facility] Comment on above: Performed By: #### L [id number] ####[facility] ([facility])[address] [place] [address] CBC WITH AUTO DIFFERENTIALon 08-22-2024 Basophils (Bld) [#/Vol] 0.05 10*3/uL Normal 0.00-0.20 [facility] Comment on above: Performed By: #### L [id number] ####[facility] ([facility])[address] [place] [address] Basophils/100 WBC (Bld) 0.5 % Normal 0.0-1.0 [facility] Comment on above: Performed By: #### L [id number] ####[facility] [place] [address] Eosinophils (Bld) [#/Vol] 0.36 10*3/uL Normal 0.00-0.50 [facility] Comment on above: Performed By: #### L [id number] ####[facility] (BEAKER)[address] [place] [address] Eosinophils/100 WBC (Bld) 3.9 % Normal 0.0-6.0 [facility] Comment on above: Performed By: #### L [id number] ####[facility] ([facility])[address] [place] [address] Erythrocyte distribution width (RBC) [Ratio] 14.7 % Normal 11.5-15.0 [facility] Comment on above: Performed By: #### L [id number] ####[facility] ([facility])[address] [place] [address] ERYTHROCYTE MEAN CORPUSCULAR HEMOGLOBIN CONCENTRATION (G/DL) BY AUTOMATED 30.8 g/dL Low 32.0-35.0 [facility] Comment on above: Performed By: #### L [id number] ####[facility] ([facility] [place] [address] Hematocrit (Bld) [Volume fraction] 52.9 % Normal 39.0-55.0 [facility] Comment on above: Performed By: #### L [id number] ####[facility] ([facility] [place] [address] Hemoglobin (Bld) [Mass/Vol] 16.3 g/dL Normal 13.0-17.0 [facility] Comment on above: Performed By: #### L [id number] ####[facility] ([facility] [place] [address] Immature granulocytes (Bld) [#/Vol] 0.07 10*3/uL Normal 0.00-0.20 [facility] Comment on above: Performed By: #### L [id number] ####[facility] (BEAKER)[address] [place] [address] Immature granulocytes/100 WBC (Bld) 0.7 % Normal 0.0-1.0 [facility] Comment on above: Performed By: #### L [id number] ####[facility] ([facility] [place] [address] Lymphocytes (Bld) [#/Vol] 1.16 10*3/uL Low 1.20-4.00 [facility] Comment on above: Performed By: #### L [id number] ####[facility] ([facility])[address] [place] [address] Lymphocytes/100 WBC (Bld) 12.4 % Low 20.0-45.0 [facility] Comment on above: Performed By: #### L [id number] ####[facility] ([facility])[address] [place] [address] MCH (RBC) [Entitic mass] 28.8 pg Normal 27.0-33.0 [facility] Comment on above: Performed By: #### L [id number] ####[facility] ([facility])[address] [place] [address] MCV (RBC) [Entitic vol] 93.5 fL Normal 82.0-98.0 [facility] Comment on above: Performed By: #### L [id number] ####[facility] ([facility])[address] [place] [address] Monocytes (Bld) [#/Vol] 1.21 10*3/uL High 0.10-1.00 [facility] Comment on above: Performed By: #### L [id number] ####[facility] ([facility])[address] [place] [address] Monocytes/100 WBC (Bld) 12.9 % High 5.0-12.0 [facility] Comment on above: Performed By: #### L [id number] ####[facility] ([facility] [place] [address] Neutrophils (Bld) [#/Vol] 6.50 10*3/uL Normal 1.60-7.60 [facility] Comment on above: Performed By: #### L [id number] ####[facility] ([facility] [place] [address] Neutrophils/100 WBC (Bld) 69.6 % Normal 40.0-72.0 [facility] Comment on above: Performed By: #### L [id number] ####[facility] ([facility] [place] [address] NRBC (PER 100 WBCS) BY AUTOMATED COUNT 0.0 % Normal 0 [facility] Comment on above: Performed By: #### L [id number] ####[facility] ([facility])[address] [place] [address] PLATELETS (10*3/UL) IN BLOOD AUTOMATED COUNT 187 10*3/uL Normal 150-400 [facility] Comment on above: Performed By: #### L [id number] ####[facility] ([facility])[address] [place] [address] RBC (Bld) [#/Vol] 5.66 10*6/uL Normal 4.20-5.70 [facility] Comment on above: Performed By: #### L [id number] ####[facility] ([facility])[address] [place] [address] WBC (Bld) [#/Vol] 9.35 10*3/uL Normal 4.00-10.60 [facility] Comment on above: Performed By: #### L [id number] ####[facility] ([facility])[address] [place] [address] POCT GLUCOSE METER UNSOLICIT ED RESULTSon 08-22-2024 Glucose [Mass/Vol] 256 mg/dL High 70-[address] [facility] Comment on above: Order Comment: Waive d Testing in the ED is performed under the ED CLIA certificate #[id number]. Result Comment: ezab ors2 Performed By: #### L [id number] ####[facility] ([facility] [place] [address] Glucose [Mass/Vol] 277 mg/dL High 70-[address] [facility] Comment on above: Order Comment: Waive d Testing in the ED is performed under the ED CLIA certificate #[id number]. Result Comment: ezab ors2 Performed By: #### L [id number] ####[facility] (BEAKER)[address] [place] [address] ANTI-XA (HEPARIN LEVEL)on HEPARIN UNFRACTIONATED (U/ML) IN PPP BY CHROMOGENIC METHOD 0.30 IU/mL Normal 0.3-0.7 [facility] Comment on above: Result Comment: [place] roxaban and Apixaban will interfere with the anti Xa assay used to monitor UFH and LMWH. Performed By: #### L [id number] ####[facility] (BEAKER)[address] [place] [address] ARTERIAL BLOOD GAS WITH CO-O XIMETRYon 08-21-2024 Base excess Calc (Bld) [Moles/Vol] 6.7 mmol/L High -2.0-3.0 [facility] Comment on above: Performed By: #### L [id number] ####[facility] [id number] [place] [address] [facility] CARBOXYHEMOGLOBIN/HEMO GLOBIN TOTAL % IN BLOOD 2.0 % Normal 0.0-3.0 [facility] Comment on above: Performed By: #### L [id number] ####[facility] [id number] [place] [address] [place] CO2 (Bld) [Partial pressure] 43 mm[Hg] Normal 35-48 [facility] Comment on above: Performed By: #### L [id number] ####[facility] [id number] [place] [address] [place] DEOXYGENATED HEMOGLOBIN IN BLOOD 4.9 % Normal 1-5 [facility] Comment on above: Performed By: #### L [id number] ####[facility] [id number] [place] [address] [place] FIO2 50 % Normal [facility] Comment on above: Performed By: #### L [id number] ####[facility] [id number] [facility] [address] [facility] HCO3 (Bld) [Moles/Vol] 31.3 mmol/L High 21.0-28.0 [facility] Comment on above: Performed By: #### L [id number] ####[facility] [id number] [facility] [address] [facility] Hemoglobin (Bld) [Mass/Vol] 16.5 g/dL Normal 11.7-17.4 [facility] Comment on above: Performed By: #### L [id number] ####[facility] [id number] [place] [address] [facility] METHEMOGLOBIN/100 IN BLOOD 0.7 % Normal 0.0-1.5 [facility] Comment on above: Performed By: #### L [id number] ####[facility] [id number] [place] [address] [facility] Oxygen (Bld) [Partial pressure] 68 mm[Hg] Low 83-100 [facility] Comment on above: Performed By: #### L [id number] ####[facility] [id number] [place] [address] [facility] OXYGEN SATURATION (%) IN ARTERIAL BLOOD 95.0 % Normal 94.0-98.0 [facility] Comment on above: Performed By: #### L [id number] ####[facility] [id number] [place] [address] [facility] OXYGENATED HEMOGLOBIN IN BLOOD 92.4 % Normal 90.0-95.0 [facility] Comment on above: Performed By: #### L [id number] ####[facility] [id number] [place] [address] [facility] pH (Bld) 7.47 [pH] High 7.35-7.45 [facility] Comment on above: Performed By: #### L [id number] ####[facility] [id number] [facility] [address] [facility] SOURCE OF OXYGEN Bi-PAP Normal [facility] Comment on above: Performed By: #### L [id number] ####[facility] [id number] [place] [address] [place] Base excess Calc (Bld) [Moles/Vol] 5.1 mmol/L High -2.0-3.0 [facility] Comment on above: Performed By: #### L [id number] ####[facility] [id number] [place] [address] [place] CARBOXYHEMOGLOBIN/HEMO GLOBIN TOTAL % IN BLOOD 1.9 % Normal 0.0-3.0 [facility] Comment on above: Performed By: #### L [id number] ####[facility] [id number] [address] [place] [address] [place] CO2 (Bld) [Partial pressure] 46 mm[Hg] Normal 35-48 [facility] Comment on above: Performed By: #### L [id number] ####[facility] [id number] [address] [place] [address] [facility] DEOXYGENATED HEMOGLOBIN IN BLOOD 15.8 % Critically high 1-5 [facility] Comment on above: Performed By: #### L [id number] ####[facility] [id number] [address] [place] [address] [place] HCO3 (Bld) [Moles/Vol] 30.5 mmol/L High 21.0-28.0 [facility] Comment on above: Performed By: #### L [id number] ####[facility] [id number] [place] [address] [place] Hemoglobin (Bld) [Mass/Vol] 16.4 g/dL Normal 11.7-17.4 [facility] Comment on above: Performed By: #### L [id number] ####[facility] [id number] [address] [place] [address] [place] LPM 15 Normal [facility] Comment on above: Performed By: #### L [id number] ####[facility] [id number] [place] [address] [place] METHEMOGLOBIN/100 IN BLOOD 0.6 % Normal 0.0-1.5 [facility] Comment on above: Performed By: #### L [id number] ####[facility] [id number] [place] [address] [place] Oxygen (Bld) [Partial pressure] 53 mm[Hg] Invalid Interpretation Code 83-100 [facility] Comment on above: Performed By: #### L [id number] ####[facility] [id number] [place] [address] [facility] OXYGEN SATURATION (%) IN ARTERIAL BLOOD 83.8 % Invalid Interpretation Code 94.0-98.0 [facility] Comment on above: Performed By: #### L [id number] ####[facility] [id number] [place] [address] [facility] OXYGENATED HEMOGLOBIN IN BLOOD 81.7 % Invalid Interpretation Code 90.0-95.0 [facility] Comment on above: Performed By: #### L [id number] ####[facility] [id number] [place] [address] [facility] pH (Bld) 7.43 [pH] Normal 7.35-7.45 [facility] Comment on above: Performed By: #### L [id number] ####[facility] [id number] [place] [address] [facility] SOURCE OF OXYGEN SALTER Normal [facility] Comment on above: Performed By: #### L [id number] ####[facility] [id number] [place] [address] [facility] ARTERIAL BLOOD GAS WITH IONI ZED CALCIUMon 08-21-2024 Base excess Calc (Bld) [Moles/Vol] 6.2 mmol/L High -2.0-3.0 [facility] Comment on above: Performed By: #### L [id number] ####[facility] [id number] [place] [address] [place] CALCIUM IONIZED (MMOL/L) IN BLOOD 1.30 mmol/L Normal 1.15-1.33 [facility] Comment on above: Performed By: #### L [id number] ####[facility] [id number] [place] [address] [facility] CO2 (Bld) [Partial pressure] 45 mm[Hg] Normal 35-48 [facility] Comment on above: Performed By: #### L [id number] ####[facility] [id number] [facility] [address] [place] FIO2 50 % Normal [facility] Comment on above: Performed By: #### L [id number] ####[facility] [id number] [facility] [address] [facility] HCO3 (Bld) [Moles/Vol] 31.3 mmol/L High 21.0-28.0 [facility] Comment on above: Performed By: #### L [id number] ####[facility] [id number] [place] [address] [facility] Oxygen (Bld) [Partial pressure] 70 mm[Hg] Low 83-100 [facility] Comment on above: Performed By: #### L [id number] ####[facility] [id number] [place] [address] [facility] OXYGEN SATURATION (%) IN ARTERIAL BLOOD 94.9 % Normal 94.0-98.0 [facility] Comment on above: Performed By: #### L [id number] ####[facility] [id number] [facility] [address] [place] PEEP 8 cmH2O Normal [facility] Comment on above: Performed By: #### L [id number] ####[facility] [id number] [place] [address] [facility] pH (Bld) 7.45 [pH] Normal 7.35-7.45 [facility] Comment on above: Performed By: #### L [id number] ####[facility] [id number] [facility] [address] [place] PRESSURE SUPPORT 14 Normal [facility] Comment on above: Performed By: #### L [id number] ####[facility] [id number] [facility] [address] [facility] SOURCE OF OXYGEN Bi-PAP Normal [facility] Comment on above: Performed By: #### L [id number] ####[facility] [id number] [place] [address] [facility] BASIC METABOLIC PANELon 02-0 Anion gap [Moles/Vol] 11 mmol/L Normal 7-20 [facility] Comment on above: Performed By: #### L [id number] ####[facility] (BEAKER)[address] [place] [address] Calcium [Mass/Vol] 9.4 mg/dL Normal 8.6-10.[address] [facility] Comment on above: Performed By: #### L [id number] ####[facility] (BEAKER)[address] [place] [address] Chloride [Moles/Vol] 101 mmol/L Normal 98-107 [facility] Comment on above: Performed By: #### L [id number] ####[facility] (BEAKER)[address] [place] [address] CO2 [Moles/Vol] 30 mmol/L Normal 21-31 [facility] Comment on above: Performed By: #### L [id number] ####[facility] (BEAKER)[address] [place] [address] Creatinine [Mass/Vol] 1.05 mg/dL Normal 0.70-1.30 [facility] Comment on above: Performed By: #### L [id number] ####[facility] (BEAKER)[address] [place] [address] GLOMERULAR FILTRATION RATE ML/MIN/1.73 SQ M.PREDICTED 78.8 mL/min/1.73m*2 Normal >60.0 [facility] Comment on above: Result Comment: [facility]???s estimated glomerular filtration rate (eGFR) will [...] of individuals. Performed By: #### L [id number] ####[facility] ([facility])[address] [place] [address] Glucose [Mass/Vol] 269 mg/dL High 70-[address] [facility] Comment on above: Performed By: #### L [id number] ####[facility] ([facility])[address] [place] [address] Potassium [Moles/Vol] 4.0 mmol/L Normal 3.5-5.1 [facility] Comment on above: Performed By: #### L [id number] ####[facility] ([facility])[address] [place] [address] Sodium [Moles/Vol] 138 mmol/L Normal 136-[address] [facility] Comment on above: Performed By: #### L [id number] ####[facility] ([facility])[address] [place] [address] Urea nitrogen [Mass/Vol] 35 mg/dL High 7-25 [facility] Comment on above: Performed By: #### L [id number] ####[facility] ([facility])[address] [place] [address] UREA NITROGEN/CREATININE (MASS RATIO) IN SER/PLAS 33.3 Normal [facility] Comment on above: Performed By: #### L [id number] ####[facility] ([facility])[address] [place] [address] CALCIUM, IONIZEDon CALCIUM IONIZED (MMOL/L) IN BLOOD 1.29 mmol/L Normal 1.15-1.33 [facility] Comment on above: Performed By: #### C ALCIUM, IONIZED ####[facility] [id number] [place] [address] [place] CBC WITH AUTO DIFFERENTIALon 08-21-2024 Basophils (Bld) [#/Vol] 0.05 10*3/uL Normal 0.00-0.20 [facility] Comment on above: Performed By: #### L [id number] ####[facility] (BEAKER)[address] [place] [address] Basophils/100 WBC (Bld) 0.6 % Normal 0.0-1.0 [facility] Comment on above: Performed By: #### L [id number] ####[facility] (BEAKER)[address] [place] [address] Eosinophils (Bld) [#/Vol] 0.43 10*3/uL Normal 0.00-0.50 [facility] Comment on above: Performed By: #### L [id number] ####[facility] (BEAKER)[address] [place] [address] Eosinophils/100 WBC (Bld) 5.2 % Normal 0.0-6.0 [facility] Comment on above: Performed By: #### L [id number] ####[facility] (BEAKER)[address] [place] [address] Erythrocyte distribution width (RBC) [Ratio] 14.8 % Normal 11.5-15.0 [facility] Comment on above: Performed By: #### L [id number] ####[facility] (BEAKER)[address] [place] [address] ERYTHROCYTE MEAN CORPUSCULAR HEMOGLOBIN CONCENTRATION (G/DL) BY AUTOMATED 31.1 g/dL Low 32.0-35.0 [facility] Comment on above: Performed By: #### L [id number] ####[facility] (BEAKER)[address] [place] [address] Hematocrit (Bld) [Volume fraction] 52.1 % Normal 39.0-55.0 [facility] Comment on above: Performed By: #### L [id number] ####[facility] (BEAKER)[address] [place] [address] Hemoglobin (Bld) [Mass/Vol] 16.2 g/dL Normal 13.0-17.0 [facility] Comment on above: Performed By: #### L [id number] ####[facility] (BEAKER)[address] [place] [address] Immature granulocytes (Bld) [#/Vol] 0.06 10*3/uL Normal 0.00-0.20 [facility] Comment on above: Performed By: #### L [id number] ####[facility] (BEAKER)[address] [place] [address] Immature granulocytes/100 WBC (Bld) 0.7 % Normal 0.0-1.0 [facility] Comment on above: Performed By: #### L [id number] ####[facility] (BEAKER)[address] [place] [address] Lymphocytes (Bld) [#/Vol] 1.10 10*3/uL Low 1.20-4.00 [facility] Comment on above: Performed By: #### L [id number] ####[facility] (BEAKER)[address] [place] [address] Lymphocytes/100 WBC (Bld) 13.3 % Low 20.0-45.0 [facility] Comment on above: Performed By: #### L [id number] ####[facility] (BEAKER)[address] [place] [address] MCH (RBC) [Entitic mass] 29.1 pg Normal 27.0-33.0 [facility] Comment on above: Performed By: #### L [id number] ####[facility] (BEAKER)[address] [place] [address] MCV (RBC) [Entitic vol] 93.7 fL Normal 82.0-98.0 [facility] Comment on above: Performed By: #### L [id number] ####[facility] (BEAKER)[address] [place] [address] Monocytes (Bld) [#/Vol] 0.92 10*3/uL Normal 0.10-1.00 [facility] Comment on above: Performed By: #### L [id number] ####[facility] (BEAKER)[address] [place] [address] Monocytes/100 WBC (Bld) 11.1 % Normal 5.0-12.0 [facility] Comment on above: Performed By: #### L [id number] ####[facility] [place] [address] Neutrophils (Bld) [#/Vol] 5.72 10*3/uL Normal 1.60-7.60 [facility] Comment on above: Performed By: #### L [id number] ####[facility] ([facility])[address] [place] [address] Neutrophils/100 WBC (Bld) 69.1 % Normal 40.0-72.0 [facility] Comment on above: Performed By: #### L [id number] ####[facility] ([facility])[address] [place] [address] NRBC (PER 100 WBCS) BY AUTOMATED COUNT 0.0 % Normal 0 [facility] Comment on above: Performed By: #### L [id number] ####[facility] ([facility])[address] [place] [address] PLATELETS (10*3/UL) IN BLOOD AUTOMATED COUNT 199 10*3/uL Normal 150-400 [facility] Comment on above: Performed By: #### L [id number] ####[facility] ([facility])[address] [place] [address] RBC (Bld) [#/Vol] 5.56 10*6/uL Normal 4.20-5.70 [facility] Comment on above: Performed By: #### L [id number] ####[facility] ([facility])[address] [place] [address] WBC (Bld) [#/Vol] 8.28 10*3/uL Normal 4.00-10.60 [facility] Comment on above: Performed By: #### L [id number] ####[facility] (BEAKER)[address] [place] [address] CT BRAIN PERFUSIONon 025 CT BRAIN PERFUSION Invalid Interpretation Code [facility] CT HEAD WO IV CONTRASTon CT HEAD WO IV CONTRAST [facility] HEAD W IV CONTRASTon CTA HEAD W IV CONTRAST Normal [facility] CTA NECK W IV CONTRASTon CTA NECK W IV CONTRAST [facility] MAGNESIUMon 08-21-2024 Magnesium [Mass/Vol] 1.8 mg/dL Low 1.9-2.7 [facility] Comment on above: Performed By: #### L [id number] ####[facility] (BEAKER)[address] [place] [address] MRSA/MSSA DNA NASALon 2024 MRSA DNA Positive Abnormal Negative [facility] Comment on above: Order Comment: Testi [...] preclude nasal colonization. Performed By: #### L [id number] ####[facility] (BEAKER)[address] [place] [address] MSSA DNA Negative Normal Negative [facility] Comment on above: Order Comment: Testi [...] preclude nasal colonization. Performed By: #### L [id number] ####[facility] (BEAKER)[address] [place] [address] PHOSPHORUSon 08-21-2024 Magnesium [Mass/Vol] 2.5 mg/dL Normal 2.5-5.0 [facility] Comment on above: Performed By: #### L [id number] ####[facility] (BEAKER)[address] [place] [address] POCT GLUCOSE METER UNSOLICIT ED RESULTSon 08-21-2024 Glucose [Mass/Vol] 230 mg/dL High 70-[address] [facility] Comment on above: Order Comment: Waive d Testing in the ED is performed under the ED CLIA certificate #[id number]. Result Comment: [email or web address] Performed By: #### L [id number] ####[facility] ([facility])[address] [place] [address] Glucose [Mass/Vol] 226 mg/dL High 70-[address] [facility] Comment on above: Order Comment: Waive d Testing in the ED is performed under the ED CLIA certificate #[id number]. Result Comment: [email or web address] Performed By: #### L [id number] ####[facility] ([facility])[address] [place] [address] Glucose [Mass/Vol] 229 mg/dL High 70-[address] [facility] Comment on above: Order Comment: Waive d Testing in the ED is performed under the ED CLIA certificate #[id number]. Result Comment: [email or web address] Performed By: #### L [id number] ####[facility] ([facility])[address] [place] [address] Glucose [Mass/Vol] 234 mg/dL High 70-[address] [facility] Comment on above: Order Comment: Waive d Testing in the ED is performed under the ED CLIA certificate #[id number]. Result Comment: [email or web address] Performed By: #### L [id number] ####[facility] ([facility])[address] [place] [address] POTASSIUM, WHOLE BLOODon Potassium [Moles/Vol] 3.3 mmol/L Low 3.5-5.1 [facility] Comment on above: Performed By: #### P OTASSIUM, WHOLE BLOOD ####[facility] [id number] [place] [address] [place] SODIUM, WHOLE BLOODon 2024 SODIUM, WHOLE BLOOD 137 Normal 136-145 [facility] Comment on above: Performed By: #### S ODIUM, WHOLE BLOOD ####[facility] [id number] [place] [address] [place] 30on 08-20-2024 30 Normal [facility] ANTI-XA (HEPARIN LEVEL)on HEPARIN UNFRACTIONATED (U/ML) IN PPP BY CHROMOGENIC METHOD 0.30 IU/mL Normal 0.3-0.7 [facility] Comment on above: Result Comment: [place] roxaban and Apixaban will interfere with the anti Xa assay used to monitor UFH and LMWH. Performed By: #### L [id number] ####[facility] (BEAKER)[address] [place] [address] BASIC METABOLIC PANELon 07-23 Anion gap [Moles/Vol] 8 mmol/L Normal 7-20 [facility] Comment on above: Performed By: #### L [id number] ####[facility] (BEAKER)[address] [place] [address] Calcium [Mass/Vol] 9.4 mg/dL Normal 8.6-10.[address] [facility] Comment on above: Performed By: #### L [id number] ####[facility] (BEAKER)[address] [place] [address] Chloride [Moles/Vol] 99 mmol/L Normal 98-107 [facility] Comment on above: Performed By: #### L [id number] ####[facility] (BEAKER)[address] [place] [address] CO2 [Moles/Vol] 34 mmol/L High -31 [facility] Comment on above: Performed By: #### L [id number] ####[facility] (BEAKER)[address] [place] [address] Creatinine [Mass/Vol] 0.97 mg/dL Normal 0.70-1.30 [facility] Comment on above: Performed By: #### L [id number] ####[facility] ([facility])[address] [facility] [place] [address] GLOMERULAR FILTRATION RATE ML/MIN/1.73 SQ M.PREDICTED 86.6 mL/min/1.73m*2 Normal >60.0 [facility] Comment on above: Result Comment: The [facility]???s estimated glomerular filtration rate (eGFR) will [...] of individuals. Performed By: #### L [id number] ####[facility] ([facility])[address] [place] [address] Glucose [Mass/Vol] 267 mg/dL High 70-[address] [facility] Comment on above: Performed By: #### L [id number] ####[facility] ([facility])[address] [place] [address] Potassium [Moles/Vol] 3.9 mmol/L Normal 3.5-5.1 [facility] Comment on above: Performed By: #### L [id number] ####[facility] ([facility])[address] [place] [address] Sodium [Moles/Vol] 137 mmol/L Normal 136-[address] [facility] Comment on above: Performed By: #### L [id number] ####[facility] ([facility])[address] [place] [address] Urea nitrogen [Mass/Vol] 33 mg/dL High 7-25 [facility] Comment on above: Performed By: #### L [id number] ####[facility] ([facility])[address] [place] [address] UREA NITROGEN/CREATININE (MASS RATIO) IN SER/PLAS 34.0 Normal [facility] Comment on above: Performed By: #### L [id number] ####[facility] ([facility] [place] [address] CBC WITH AUTO DIFFERENTIALon 08-20-2024 Basophils (Bld) [#/Vol] 0.04 10*3/uL Normal 0.00-0.20 [facility] Comment on above: Performed By: #### L [id number] ####[facility] ([facility] [place] [address] Basophils/100 WBC (Bld) 0.4 % Normal 0.0-1.0 [facility] Comment on above: Performed By: #### L [id number] ####[facility] ([facility])[address] [place] [address] Eosinophils (Bld) [#/Vol] 0.58 10*3/uL High 0.00-0.50 [facility] Comment on above: Performed By: #### L [id number] ####[facility] ([facility] [place] [address] Eosinophils/100 WBC (Bld) 5.6 % Normal 0.0-6.0 [facility] Comment on above: Performed By: #### L [id number] ####[facility] ([facility] [place] [address] Erythrocyte distribution width (RBC) [Ratio] 15.1 % High 11.5-15.0 [facility] Comment on above: Performed By: #### L [id number] ####[facility] (BEAKER)[address] [place] [address] ERYTHROCYTE MEAN CORPUSCULAR HEMOGLOBIN CONCENTRATION (G/DL) BY AUTOMATED 30.5 g/dL Low 32.0-35.0 [facility] Comment on above: Performed By: #### L [id number] ####[facility] (BEAKER)[address] [place] [address] Hematocrit (Bld) [Volume fraction] 52.1 % Normal 39.0-55.0 [facility] Comment on above: Performed By: #### L [id number] ####[facility] (BEAKER)[address] [place] [address] Hemoglobin (Bld) [Mass/Vol] 15.9 g/dL Normal 13.0-17.0 [facility] Comment on above: Performed By: #### L [id number] ####[facility] ([facility] [place] [address] Immature granulocytes (Bld) [#/Vol] 0.07 10*3/uL Normal 0.00-0.20 [facility] Comment on above: Performed By: #### L [id number] ####[facility] (BEAKER)[address] [place] [address] Immature granulocytes/100 WBC (Bld) 0.7 % Normal 0.0-1.0 [facility] Comment on above: Performed By: #### L [id number] ####[facility] (BEAKER)[address] [place] [address] Lymphocytes (Bld) [#/Vol] 0.94 10*3/uL Low 1.20-4.00 [facility] Comment on above: Performed By: #### L [id number] ####[facility] (BEAKER)[address] [place] [address] Lymphocytes/100 WBC (Bld) 9.1 % Low 20.0-45.0 [facility] Comment on above: Performed By: #### L [id number] ####[facility] (BEAKER)[address] [place] [address] MCH (RBC) [Entitic mass] 29.0 pg Normal 27.0-33.0 [facility] Comment on above: Performed By: #### L [id number] ####[facility] (BEAKER)[address] [place] [address] MCV (RBC) [Entitic vol] 94.9 fL Normal 82.0-98.0 [facility] Comment on above: Performed By: #### L [id number] ####[facility] ([facility] [place] [address] Monocytes (Bld) [#/Vol] 0.95 10*3/uL Normal 0.10-1.00 [facility] Comment on above: Performed By: #### L [id number] ####[facility] ([facility])[address] [place] [address] Monocytes/100 WBC (Bld) 9.2 % Normal 5.0-12.0 [facility] Comment on above: Performed By: #### L [id number] ####[facility] ([facility])[address] [place] [address] Neutrophils (Bld) [#/Vol] 7.72 10*3/uL High 1.60-7.60 [facility] Comment on above: Performed By: #### L [id number] ####[facility] ([facility])[address] [place] [address] Neutrophils/100 WBC (Bld) 75.0 % High 40.0-72.0 [facility] Comment on above: Performed By: #### L [id number] ####[facility] ([facility])[address] [place] [address] NRBC (PER 100 WBCS) BY AUTOMATED COUNT 0.0 % Normal 0 [facility] Comment on above: Performed By: #### L [id number] ####[facility] ([facility])[address] [place] [address] PLATELETS (10*3/UL) IN BLOOD AUTOMATED COUNT 209 10*3/uL Normal 150-400 [facility] Comment on above: Performed By: #### L [id number] ####[facility] ([facility] [place] [address] RBC (Bld) [#/Vol] 5.49 10*6/uL Normal 4.20-5.70 [facility] Comment on above: Performed By: #### L [id number] ####[facility] ([facility])[address] [place] [address] WBC (Bld) [#/Vol] 10.30 10*3/uL Normal 4.00-10.60 [facility] Comment on above: Performed By: #### L [id number] ####[facility] ([facility])[address] [place] [address] MAGNESIUMon 08-20-2024 Magnesium [Mass/Vol] 1.9 mg/dL Normal 1.9-2.7 [facility] Comment on above: Performed By: #### L [id number] ####[facility] ([facility])[address] [place] [address] PHOSPHORUSon 08-20-2024 Magnesium [Mass/Vol] 2.1 mg/dL Low 2.5-5.0 [facility] Comment on above: Performed By: #### L [id number] ####[facility] ([facility])[address] [place] [address] POCT GLUCOSE METER UNSOLICIT ED RESULTSon 08-20-2024 Glucose [Mass/Vol] 268 mg/dL High 70-[address] [facility] Comment on above: Order Comment: Waive d Testing in the ED is performed under the ED CLIA certificate #[id number]. Result Comment: [email or web address] [email or web address] Performed By: #### L [id number] ####[facility] ([facility])[address] [place] [address] 30on 08-19-2024 30 Normal [facility] 30 Normal [facility] ANTI-XA (HEPARIN LEVEL)on HEPARIN UNFRACTIONATED (U/ML) IN PPP BY CHROMOGENIC METHOD 0.41 IU/mL Normal 0.3-0.7 [facility] Comment on above: Result Comment: [place] roxaban and Apixaban will interfere with the anti Xa assay used to monitor UFH and LMWH. Performed By: #### L [id number] ####[facility] ([facility])[address] [place] [address] BASIC METABOLIC PANELon -3 Anion gap [Moles/Vol] 8 mmol/L Normal 7-20 [facility] Comment on above: Performed By: #### L [id number] ####[facility] (BEAKER)[address] [place] [address] Calcium [Mass/Vol] 8.9 mg/dL Normal 8.6-10.[address] [facility] Comment on above: Performed By: #### L [id number] ####[facility] (BEAKER)[address] [place] [address] Chloride [Moles/Vol] 99 mmol/L Normal 98-107 [facility] Comment on above: Performed By: #### L [id number] ####[facility] (BEAKER)[address] [place] [address] CO2 [Moles/Vol] 37 mmol/L High 21-31 [facility] Comment on above: Performed By: #### L [id number] ####[facility] (BEAKER)[address] [place] [address] Creatinine [Mass/Vol] 1.00 mg/dL Normal 0.70-1.30 [facility] Comment on above: Performed By: #### L [id number] ####[facility] [place] [address] GLOMERULAR FILTRATION RATE ML/MIN/1.73 SQ M.PREDICTED 83.5 mL/min/1.73m*2 Normal >60.0 [facility] Comment on above: Result Comment: [facility]???s estimated glomerular filtration rate (eGFR) will [...] of individuals. Performed By: #### L [id number] ####[facility] ([facility] [place] [address] Glucose [Mass/Vol] 219 mg/dL High 70-[address] [facility] Comment on above: Performed By: #### L [id number] ####[facility] ([facility] [place] [address] Potassium [Moles/Vol] 3.9 mmol/L Normal 3.5-5.1 [facility] Comment on above: Performed By: #### L [id number] ####[facility] ([facility])[address] [place] [address] Sodium [Moles/Vol] 140 mmol/L Normal 136-[address] [facility] Comment on above: Performed By: #### L [id number] ####[facility] ([facility])[address] [place] [address] Urea nitrogen [Mass/Vol] 28 mg/dL High 7-25 [facility] Comment on above: Performed By: #### L [id number] ####[facility] ([facility])[address] [place] [address] UREA NITROGEN/CREATININE (MASS RATIO) IN SER/PLAS 28.0 Normal [facility] Comment on above: Performed By: #### L [id number] ####[facility] ([facility])[address] [place] [address] CBC WITH AUTO DIFFERENTIALon 08-19-2024 Basophils (Bld) [#/Vol] 0.04 10*3/uL Normal 0.00-0.20 [facility] Comment on above: Performed By: #### L [id number] ####[facility] ([facility])[address] [place] [address] Basophils/100 WBC (Bld) 0.4 % Normal 0.0-1.0 [facility] Comment on above: Performed By: #### L [id number] ####[facility] [place] [address] Eosinophils (Bld) [#/Vol] 0.62 10*3/uL High 0.00-0.50 [facility] Comment on above: Performed By: #### L [id number] ####[facility] (BEAKER)[address] [place] [address] Eosinophils/100 WBC (Bld) 6.7 % High 0.0-6.0 [facility] Comment on above: Performed By: #### L [id number] ####[facility] (BEAKER)[address] [place] [address] Erythrocyte distribution width (RBC) [Ratio] 15.4 % High 11.5-15.0 [facility] Comment on above: Performed By: #### L [id number] ####[facility] (BEAKER)[address] [place] [address] ERYTHROCYTE MEAN CORPUSCULAR HEMOGLOBIN CONCENTRATION (G/DL) BY AUTOMATED 29.8 g/dL Low 32.0-35.0 [facility] Comment on above: Performed By: #### L [id number] ####[facility] (BEAKER)[address] [place] [address] Hematocrit (Bld) [Volume fraction] 49.4 % Normal 39.0-55.0 [facility] Comment on above: Performed By: #### L [id number] ####[facility] (BEAKER)[address] [place] [address] Hemoglobin (Bld) [Mass/Vol] 14.7 g/dL Normal 13.0-17.0 [facility] Comment on above: Performed By: #### L [id number] ####[facility] (BEAKER)[address] [place] [address] Immature granulocytes (Bld) [#/Vol] 0.06 10*3/uL Normal 0.00-0.20 [facility] Comment on above: Performed By: #### L [id number] ####[facility] (BEAKER)[address] [place] [address] Immature granulocytes/100 WBC (Bld) 0.7 % Normal 0.0-1.0 [facility] Comment on above: Performed By: #### L [id number] ####[facility] ([facility])[address] [place] [address] Lymphocytes (Bld) [#/Vol] 0.86 10*3/uL Low 1.20-4.00 [facility] Comment on above: Performed By: #### L [id number] ####[facility] ([facility])[address] [place] [address] Lymphocytes/100 WBC (Bld) 9.3 % Low 20.0-45.0 [facility] Comment on above: Performed By: #### L [id number] ####[facility] ([facility])[address] [place] [address] MCH (RBC) [Entitic mass] 28.9 pg Normal 27.0-33.0 [facility] Comment on above: Performed By: #### L [id number] ####[facility] ([facility])[address] [place] [address] MCV (RBC) [Entitic vol] 97.2 fL Normal 82.0-98.0 [facility] Comment on above: Performed By: #### L [id number] ####[facility] ([facility])[address] [place] [address] Monocytes (Bld) [#/Vol] 0.94 10*3/uL Normal 0.10-1.00 [facility] Comment on above: Performed By: #### L [id number] ####[facility] ([facility])[address] [place] [address] Monocytes/100 WBC (Bld) 10.2 % Normal 5.0-12.0 [facility] Comment on above: Performed By: #### L [id number] ####[facility] [place] [address] Neutrophils (Bld) [#/Vol] 6.68 10*3/uL Normal 1.60-7.60 [facility] Comment on above: Performed By: #### L [id number] ####[facility] (BEAKER)[address] [place] [address] Neutrophils/100 WBC (Bld) 72.7 % High 40.0-72.0 [facility] Comment on above: Performed By: #### L [id number] ####[facility] [place] [place] [address] NRBC (PER 100 WBCS) BY AUTOMATED COUNT 0.0 % Normal 0 [facility] Comment on above: Performed By: #### L [id number] ####[facility] HOSPITAL)[address] [place] [address] PLATELETS (10*3/UL) IN BLOOD AUTOMATED COUNT 198 10*3/uL Normal 150-400 [facility] Comment on above: Performed By: #### L [id number] ####[facility] ([facility])[address] [place] [address] RBC (Bld) [#/Vol] 5.08 10*6/uL Normal 4.20-5.70 [facility] Comment on above: Performed By: #### L [id number] ####[facility] [address] WBC (Bld) [#/Vol] 9.20 10*3/uL Normal 4.00-10.60 [facility] Comment on above: Performed By: #### L [id number] ####[facility] ([facility] [address] CONSULTon 08-19-2024 CONSULT Normal [facility] MAGNESIUMon 08-19-2024 Magnesium [Mass/Vol] 1.9 mg/dL Normal 1.9-2.7 [facility] Comment on above: Performed By: #### L [id number] ####[facility] (BEAKER)[address] [address] PHOSPHORUSon 08-19-2024 Magnesium [Mass/Vol] 2.9 mg/dL Normal 2.5-5.0 [facility] Comment on above: Performed By: #### L [id number] ####[facility] ([facility])[address] [place] [address] POCT GLUCOSE METER UNSOLICIT ED RESULTSon 08-19-2024 Glucose [Mass/Vol] 239 mg/dL High 70-[address] [facility] Comment on above: Order Comment: Waive d Testing in the ED is performed under the ED CLIA certificate #[id number]. Result Comment: [email or web address] Performed By: #### L [id number] ####[facility] ([facility])[address] [facility] [place] [address] Glucose [Mass/Vol] 251 mg/dL High 70-[address] [facility] Comment on above: Order Comment: Waive d Testing in the ED is performed under the ED CLIA certificate #[id number]. Result Comment: [email or web address] Performed By: #### L [id number] ####[facility] ([facility])[address] [facility] [place] [address] Glucose [Mass/Vol] 185 mg/dL High 70-[address] [facility] Comment on above: Order Comment: Waive d Testing in the ED is performed under the ED CLIA certificate #[id number]. Result Comment: [email or web address] Performed By: #### L [id number] ####[facility] ([employer])[address] [place] [address] TRIGLYCERIDESon 08-19-2024 FASTING? UNKNOWN Normal [facility] Comment on above: Performed By: #### L [id number] ####[facility] ([facility])[address] [facility] [place] [address] Magnesium [Mass/Vol] 192 mg/dL High 40-149 [facility] Comment on above: Result Comment: TRIG LYCERIDE REFERENCE RANGE:20 YEARS AND OLDER CARDIOVASCULAR RISKLESS THAN 150 mg/dL LOW [id number] TO 199 mg/dL BORDERLINE [id number] mg/dL AND GREATER HIGH RISK Performed By: #### L [id number] ####[facility] ([facility] [facility] [place] [address] ANTI-XA (HEPARIN LEVEL)on HEPARIN UNFRACTIONATED (U/ML) IN PPP BY CHROMOGENIC METHOD 0.50 IU/mL Normal 0.3-0.7 [facility] Comment on above: Result Comment: [place] roxaban and Apixaban will interfere with the anti Xa assay used to monitor UFH and LMWH. Performed By: #### L [id number] ####[facility] ([facility])[address] [place] [address] HEPARIN UNFRACTIONATED (U/ML) IN PPP BY CHROMOGENIC METHOD 0.60 IU/mL Normal 0.3-0.7 [facility] Comment on above: Result Comment: [place] roxaban and Apixaban will interfere with the anti Xa assay used to monitor UFH and LMWH. Performed By: #### L [id number] ####[facility] ([facility])[address] [place] [address] BASIC METABOLIC PANELon 07-22 Anion gap [Moles/Vol] 8 mmol/L Normal 7-20 [facility] Comment on above: Performed By: #### L [id number] ####[facility] ([facility])[address] [place] [address] Calcium [Mass/Vol] 8.7 mg/dL Normal 8.6-10.[address] [facility] Comment on above: Performed By: #### L [id number] ####[facility] ([facility])[address] [place] [address] Chloride [Moles/Vol] 98 mmol/L Normal 98-107 [facility] Comment on above: Performed By: #### L [id number] ####[facility] ([facility])[address] [facility] [place] [address] CO2 [Moles/Vol] 41 mmol/L Critically high 21-31 [facility] Comment on above: Performed By: #### L [id number] ####[facility] ([facility])[address] [place] [address] Creatinine [Mass/Vol] 1.05 mg/dL Normal 0.70-1.30 [facility] Comment on above: Performed By: #### L [id number] ####[facility] ([facility])[address] [place] [address] GLOMERULAR FILTRATION RATE ML/MIN/1.73 SQ M.PREDICTED 78.8 mL/min/1.73m*2 Normal >60.0 [facility] Comment on above: Result Comment: [facility]???s estimated glomerular filtration rate (eGFR) will [...] of individuals. Performed By: #### L [id number] ####[facility] ([facility])[address] [address] Glucose [Mass/Vol] 201 mg/dL High 70-[address] [facility] Comment on above: Performed By: #### L [id number] ####[facility] ([facility])[address] [place] [address] Potassium [Moles/Vol] 3.7 mmol/L Normal 3.5-5.1 [facility] Comment on above: Performed By: #### L [id number] ####[facility] ([facility])[address] [place] [address] Sodium [Moles/Vol] 143 mmol/L Normal 136-[address] [facility] Comment on above: Performed By: #### L [id number] ####[facility] ([facility])[address] [place] [address] Urea nitrogen [Mass/Vol] 25 mg/dL Normal 7-25 [facility] Comment on above: Performed By: #### L [id number] ####[facility] ([facility])[address] [place] [address] UREA NITROGEN/CREATININE (MASS RATIO) IN SER/PLAS 23.8 Normal [facility] Comment on above: Performed By: #### L [id number] ####[facility] ([facility])[address] [place] [address] CBC WITH AUTO DIFFERENTIALon 08-18-2024 Basophils (Bld) [#/Vol] 0.03 10*3/uL Normal 0.00-0.20 [facility] Comment on above: Performed By: #### L [id number] ####[facility] ([facility])[address] [place] [address] Basophils/100 WBC (Bld) 0.3 % Normal 0.0-1.0 [facility] Comment on above: Performed By: #### L [id number] ####[facility] ([facility])[address] [place] [address] Eosinophils (Bld) [#/Vol] 0.45 10*3/uL Normal 0.00-0.50 [facility] Comment on above: Performed By: #### L [id number] ####[facility] ([facility])[address] [place] [address] Eosinophils/100 WBC (Bld) 5.0 % Normal 0.0-6.0 [facility] Comment on above: Performed By: #### L [id number] ####[facility] ([facility])[address] [place] [address] Erythrocyte distribution width (RBC) [Ratio] 15.5 % High 11.5-15.0 [facility] Comment on above: Performed By: #### L [id number] ####[facility] ([facility])[address] [address] ERYTHROCYTE MEAN CORPUSCULAR HEMOGLOBIN CONCENTRATION (G/DL) BY AUTOMATED 29.7 g/dL Low 32.0-35.0 [facility] Comment on above: Performed By: #### L [id number] ####[facility] ([facility])[address] [place] [address] Hematocrit (Bld) [Volume fraction] 49.5 % Normal 39.0-55.0 [facility] Comment on above: Performed By: #### L [id number] ####[facility] (BEAKER)[address] [place] [address] Hemoglobin (Bld) [Mass/Vol] 14.7 g/dL Normal 13.0-17.0 [facility] Comment on above: Performed By: #### L [id number] ####[facility] (BEAKER)[address] [place] [address] Immature granulocytes (Bld) [#/Vol] 0.05 10*3/uL Normal 0.00-0.20 [facility] Comment on above: Performed By: #### L [id number] ####[facility] ([facility] [place] [address] Immature granulocytes/100 WBC (Bld) 0.6 % Normal 0.0-1.0 [facility] Comment on above: Performed By: #### L [id number] ####[facility] (BEAKER)[address] [place] [address] Lymphocytes (Bld) [#/Vol] 0.93 10*3/uL Low 1.20-4.00 [facility] Comment on above: Performed By: #### L [id number] ####[facility] (BEAKER)[address] [place] [address] Lymphocytes/100 WBC (Bld) 10.4 % Low 20.0-45.0 [facility] Comment on above: Performed By: #### L [id number] ####[facility] (BEAKER)[address] [place] [address] MCH (RBC) [Entitic mass] 29.2 pg Normal 27.0-33.0 [facility] Comment on above: Performed By: #### L [id number] ####[facility] (BEAKER)[address] [place] [address] MCV (RBC) [Entitic vol] 98.2 fL High 82.0-98.0 [facility] Comment on above: Performed By: #### L [id number] ####[facility] ([facility] [place] [address] Monocytes (Bld) [#/Vol] 1.06 10*3/uL High 0.10-1.00 [facility] Comment on above: Performed By: #### L [id number] ####[facility] ([facility] [place] [address] Monocytes/100 WBC (Bld) 11.9 % Normal 5.0-12.0 [facility] Comment on above: Performed By: #### L [id number] ####[facility] ([facility])[address] [place] [address] Neutrophils (Bld) [#/Vol] 6.41 10*3/uL Normal 1.60-7.60 [facility] Comment on above: Performed By: #### L [id number] ####[facility] ([facility])[address] [place] [address] Neutrophils/100 WBC (Bld) 71.8 % Normal 40.0-72.0 [facility] Comment on above: Performed By: #### L [id number] ####[facility] ([facility] [place] [address] NRBC (PER 100 WBCS) BY AUTOMATED COUNT 0.0 % Normal 0 [facility] Comment on above: Performed By: #### L [id number] ####[facility] ([facility] [place] [address] PLATELETS (10*3/UL) IN BLOOD AUTOMATED COUNT 208 10*3/uL Normal 150-400 [facility] Comment on above: Performed By: #### L [id number] ####[facility] ([facility] [place] [address] RBC (Bld) [#/Vol] 5.04 10*6/uL Normal 4.20-5.70 [facility] Comment on above: Performed By: #### L [id number] ####[facility] ([facility])[address] [place] [address] WBC (Bld) [#/Vol] 8.93 10*3/uL Normal 4.00-10.60 [facility] Comment on above: Performed By: #### L [id number] ####[facility] ([facility])[address] [place] [address] CONSULTon 08-18-2024 CONSULT Normal [facility] MAGNESIUMon 08-18-2024 Magnesium [Mass/Vol] 2.1 mg/dL Normal 1.9-2.7 [facility] Comment on above: Performed By: #### L [id number] ####[facility] ([facility])[address] [place] [address] PHOSPHORUSon 08-18-2024 Magnesium [Mass/Vol] 2.9 mg/dL Normal 2.5-5.0 [facility] Comment on above: Performed By: #### L [id number] ####[facility] ([facility])[address] [place] [address] POCT GLUCOSE METER UNSOLICIT ED RESULTSon 08-18-2024 Glucose [Mass/Vol] 194 mg/dL High 70-[address] [facility] Comment on above: Order Comment: Waive d Testing in the ED is performed under the ED CLIA certificate #[id number]. Result Comment: [email or web address] [email or web address] Performed By: #### L [id number] ####[facility] ([facility])[address] [place] [address] Glucose [Mass/Vol] 183 mg/dL High 70-[address] [facility] Comment on above: Order Comment: Waive d Testing in the ED is performed under the ED CLIA certificate #[id number]. Result Comment: ezab [email or web address] Performed By: #### L [id number] ####[facility] ([facility] [place] [address] Glucose [Mass/Vol] 173 mg/dL High 70-[address] [facility] Comment on above: Order Comment: Waive d Testing in the ED is performed under the ED CLIA certificate #[id number]. Result Comment: ezab [email or web address] Performed By: #### L [id number] ####[facility] ([facility] [place] [address] Glucose [Mass/Vol] 200 mg/dL High 70-[address] [facility] Comment on above: Order Comment: Waive d Testing in the ED is performed under the ED CLIA certificate #[id number]. Result Comment: [email or web address] Performed By: #### L [id number] ####[facility] ([facility])[address] [place] [address] SPUTUM CULTUREon 08-18-2024 Clindamycin [Susc] <=0.5 Susceptible [facility] Comment on above: Performed By: #### L [id number] ####[facility] ([facility])[address] [place] [address] DAPTOmycin [Susc] <=[address] [facility] Comment on above: Performed By: #### L [id number] ####[facility] ([facility])[address] [place] [address] Linezolid [Susc] <=1 Susceptible [facility] Comment on above: Performed By: #### L [id number] ####[facility] ([facility])[address] [place] [address] Oxacillin [Susc] >2 Resistant [facility] Comment on above: Performed By: #### L [id number] ####[facility] ([facility] [place] [address] Tetracycline [Susc] <=0.5 Susceptible [facility] Comment on above: Performed By: #### L [id number] ####[facility] (BEAKER)[address] [place] [address] Trimethoprim+Sulfameth oxazole [Susc] <=0.5/9.5 Susceptible [facility] Comment on above: Performed By: #### L [id number] ####[facility] ([facility]ER)[address] [place] [address] Vancomycin [Susc] <=0.[address] [facility] Comment on above: Performed By: #### L [id number] ####[facility] ([facility] [place] [address] TRIGLYCERIDESon 08-18-2024 FASTING? unknown [facility] Comment on above: Performed By: #### L [id number] ####[facility] ([facility])[address] [place] [address] Magnesium [Mass/Vol] 154 mg/dL High 40-149 [facility] Comment on above: Result Comment: TRIG LYCERIDE REFERENCE RANGE:20 YEARS AND OLDER CARDIOVASCULAR RISKLESS THAN 150 mg/dL LOW [id number] TO 199 mg/dL BORDERLINE [id number] mg/dL AND GREATER HIGH RISK Performed By: #### L [id number] ####[facility] ([facility])[address] [place] [address] 30on 08-17-2024 30 Normal [facility] ANTI-XA (HEPARIN LEVEL)on HEPARIN UNFRACTIONATED (U/ML) IN PPP BY CHROMOGENIC METHOD 0.86 IU/mL High 0.3-0.7 [facility] Comment on above: Result Comment: [place] roxaban and Apixaban will interfere with the anti Xa assay used to monitor UFH and LMWH. Performed By: #### L [id number] ####[facility] ([facility])[address] [place] [address] HEPARIN UNFRACTIONATED (U/ML) IN PPP BY CHROMOGENIC METHOD >1.00 Critically high 0.3-0.7 [facility] Comment on above: Result Comment: [place] roxaban and Apixaban will interfere with the anti Xa assay used to monitor UFH and LMWH. Performed By: #### L [id number] ####[facility] ([facility]ER)[address] [place] [address] HEPARIN UNFRACTIONATED (U/ML) IN PPP BY CHROMOGENIC METHOD >1.00 Critically high 0.3-0.7 [facility] Comment on above: Performed By: #### L [id number] ####[facility] ([facility])[address] [place] [address] APTTon 08-17-2024 ACTIVATED PARTIAL THROMBOPLASTIN TIME IN PPP BY COAGULATION ASSAY 99.6 Seconds High 25.0-35.0 [facility] Comment on above: Result Comment: Clin ical significance of the APTT is questionable in the presence of heparin. Performed By: #### L [id number] ####[facility] ([facility])[address] [facility] [place] [address] ACTIVATED PARTIAL THROMBOPLASTIN TIME IN PPP BY COAGULATION ASSAY 98.9 Seconds High 25.0-35.0 [facility] Comment on above: Result Comment: Clin ical significance of the APTT is questionable in the presence of heparin. Performed By: #### L [id number] ####[facility] ([facility])[address] [place] [address] B-TYPE NATRIURETIC PEPTIDEon 08-17-2024 Natriuretic peptide B (Bld) [Mass/Vol] 75 pg/mL Normal 0-100 [facility] Comment on above: Performed By: #### L [id number] ####[facility] ([facility])[address] [place] [address] BASIC METABOLIC PANELon 07-22 Anion gap [Moles/Vol] 9 mmol/L Normal 7-20 [facility] Comment on above: Performed By: #### L [id number] ####[facility] ([facility])[address] [place] [address] Calcium [Mass/Vol] 8.8 mg/dL Normal 8.6-10.[address] [facility] Comment on above: Performed By: #### L [id number] ####[facility] ([facility])[address] [place] [address] Chloride [Moles/Vol] 97 mmol/L Low 98-107 [facility] Comment on above: Performed By: #### L [id number] ####[facility] [place] [address] CO2 [Moles/Vol] 45 mmol/L Critically high 21-31 [facility] Comment on above: Performed By: #### L [id number] ####[facility] ([facility])[address] [place] [address] Creatinine [Mass/Vol] 0.93 mg/dL Normal 0.70-1.30 [facility] Comment on above: Performed By: #### L [id number] ####[facility] ([facility])[address] [place] [address] GLOMERULAR FILTRATION RATE ML/MIN/1.73 SQ M.PREDICTED 91.1 mL/min/1.73m*2 Normal >60.0 [facility] Comment on above: Result Comment: [facility]???s estimated glomerular filtration rate (eGFR) will [...] of individuals. Performed By: #### L [id number] ####[facility] ([facility])[address] [place] [address] Glucose [Mass/Vol] 190 mg/dL High 70-[address] [facility] Comment on above: Performed By: #### L [id number] ####[facility] ([facility] [place] [address] Potassium [Moles/Vol] 3.5 mmol/L Normal 3.5-5.1 [facility] Comment on above: Performed By: #### L [id number] ####[facility] ([facility] [place] [address] Sodium [Moles/Vol] 147 mmol/L High 136-145 [facility] Comment on above: Performed By: #### L [id number] ####[facility] ([facility])[address] [place] [address] Urea nitrogen [Mass/Vol] 28 mg/dL High 7-25 [facility] Comment on above: Performed By: #### L [id number] ####[facility] ([facility])[address] [place] [address] UREA NITROGEN/CREATININE (MASS RATIO) IN SER/PLAS 30.1 Normal [facility] Comment on above: Performed By: #### L [id number] ####[facility] ([facility])[address] [place] [address] CBC WITH AUTO DIFFERENTIALon 08-17-2024 Basophils (Bld) [#/Vol] 0.02 10*3/uL Normal 0.00-0.20 [facility] Comment on above: Performed By: #### L [id number] ####[facility] ([facility])[address] [place] [address] Basophils/100 WBC (Bld) 0.2 % Normal 0.0-1.0 [facility] Comment on above: Performed By: #### L [id number] ####[facility] ([facility])[address] [place] [address] Eosinophils (Bld) [#/Vol] 0.20 10*3/uL Normal 0.00-0.50 [facility] Comment on above: Performed By: #### L [id number] ####[facility] ([facility])[address] [place] [address] Eosinophils/100 WBC (Bld) 2.4 % Normal 0.0-6.0 [facility] Comment on above: Performed By: #### L [id number] ####[facility] ([facility])[address] [address] Erythrocyte distribution width (RBC) [Ratio] 15.3 % High 11.5-15.0 [facility] Comment on above: Performed By: #### L [id number] ####[facility] (BEAKER)[address] [place] [address] ERYTHROCYTE MEAN CORPUSCULAR HEMOGLOBIN CONCENTRATION (G/DL) BY AUTOMATED 30.0 g/dL Low 32.0-35.0 [facility] Comment on above: Performed By: #### L [id number] ####[facility] ([facility]AKER)[address] [place] [address] Hematocrit (Bld) [Volume fraction] 49.7 % Normal 39.0-55.0 [facility] Comment on above: Performed By: #### L [id number] ####[facility] (BEAKER)[address] [place] [address] Hemoglobin (Bld) [Mass/Vol] 14.9 g/dL Normal 13.0-17.0 [facility] Comment on above: Performed By: #### L [id number] ####[facility] ([facility]ER)[address] [place] [address] Immature granulocytes (Bld) [#/Vol] 0.04 10*3/uL Normal 0.00-0.20 [facility] Comment on above: Performed By: #### L [id number] ####[facility] ([facility])[address] [place] [address] Immature granulocytes/100 WBC (Bld) 0.5 % Normal 0.0-1.0 [facility] Comment on above: Performed By: #### L [id number] ####[facility] ([facility]ER)[address] [place] [address] Lymphocytes (Bld) [#/Vol] 0.87 10*3/uL Low 1.20-4.00 [facility] Comment on above: Performed By: #### L [id number] ####[facility] ([facility])[address] [place] [address] Lymphocytes/100 WBC (Bld) 10.5 % Low 20.0-45.0 [facility] Comment on above: Performed By: #### L [id number] ####[facility] ([facility])[address] [place] [address] MCH (RBC) [Entitic mass] 29.0 pg Normal 27.0-33.0 [facility] Comment on above: Performed By: #### L [id number] ####[facility] [facility] [place] [address] MCV (RBC) [Entitic vol] 96.9 fL Normal 82.0-98.0 [facility] Comment on above: Performed By: #### L [id number] ####[facility] ([facility])[address] [place] [address] Monocytes (Bld) [#/Vol] 1.21 10*3/uL High 0.10-1.00 [facility] Comment on above: Performed By: #### L [id number] ####[facility] ([facility])[address] [place] [address] Monocytes/100 WBC (Bld) 14.6 % High 5.0-12.0 [facility] Comment on above: Performed By: #### L [id number] ####[facility] ([facility])[address] [place] [address] Neutrophils (Bld) [#/Vol] 5.97 10*3/uL Normal 1.60-7.60 [facility] Comment on above: Performed By: #### L [id number] ####[facility] ([facility])[address] [place] [address] Neutrophils/100 WBC (Bld) 71.8 % Normal 40.0-72.0 [facility] Comment on above: Performed By: #### L [id number] ####[facility] [place], [place] [address] NRBC (PER 100 WBCS) BY AUTOMATED COUNT 0.0 % Normal 0 [facility] Comment on above: Performed By: #### L [id number] ####[facility] (BEAK[facility])[address] [place] [address] PLATELETS (10*3/UL) IN BLOOD AUTOMATED COUNT 210 10*3/uL Normal 150-400 [facility] Comment on above: Performed By: #### L [id number] ####[facility] ([facility])[address] [place] [address] RBC (Bld) [#/Vol] 5.13 10*6/uL Normal 4.20-5.70 [facility] Comment on above: Performed By: #### L [id number] ####[facility] ([facility])[address] [place] [address] WBC (Bld) [#/Vol] 8.31 10*3/uL Normal 4.00-10.60 [facility] Comment on above: Performed By: #### L [id number] ####[facility] ([facility])[address] [place] [address] MAGNESIUMon 08-17-2024 Magnesium [Mass/Vol] 2.2 mg/dL Normal 1.9-2.7 [facility] Comment on above: Performed By: #### L [id number] ####[facility] ([facility])[address] [place] [address] Magnesium [Mass/Vol] 1.8 mg/dL Low 1.9-2.7 [facility] Comment on above: Performed By: #### L [id number] ####[facility] ([facility])[address] [place] [address] Magnesium [Mass/Vol] 1.6 mg/dL Low 1.9-2.7 [facility] Comment on above: Performed By: #### L [id number] ####[facility] ([facility])[address] [place] [address] PHOSPHORUSon 08-17-2024 Magnesium [Mass/Vol] 3.2 mg/dL Normal 2.5-5.0 [facility] Comment on above: Performed By: #### L [id number] ####[facility] ([facility] [place] [address] POCT GLUCOSE METER UNSOLICIT ED RESULTSon 08-17-2024 Glucose [Mass/Vol] 184 mg/dL High 70-[address] [facility] Comment on above: Order Comment: Waive d Testing in the ED is performed under the ED CLIA certificate #[id number]. Result Comment: umesh [email or web address] Performed By: #### L [id number] ####[facility] ([facility])[address] [facility] [place] [address] Glucose [Mass/Vol] 191 mg/dL High 70-[address] [facility] Comment on above: Order Comment: Waive d Testing in the ED is performed under the ED CLIA certificate #[id number]. Result Comment: [email or web address] [email or web address] Performed By: #### L [id number] ####[facility] ([facility])[address] [place] [address] POTASSIUMon 08-17-2024 Potassium [Moles/Vol] 3.8 mmol/L Normal 3.5-5.1 [facility] Comment on above: Performed By: #### L [id number] ####[facility] ([facility])[address] [place] [address] Potassium [Moles/Vol] 3.7 mmol/L Normal 3.5-5.1 [facility] Comment on above: Performed By: #### L [id number] ####[facility] ([facility])[address] [place] [address] PROTIME-INRon 08-17-2024 INR IN PPP BY COAGULATION ASSAY 1.19 High 0.90-1.10 [facility] Comment on above: Result Comment: ACCC [...] CHEST 1995;108:[id number]. Performed By: #### L [id number] ####[facility] ([employer])[address] [place] [address] PROTHROMBIN TIME (PT) IN PPP BY COAGULATION ASSAY 15.0 Seconds High 12.3-14.8 [facility] Comment on above: Performed By: #### L [id number] ####[facility] ([employer])[address] [place] [address] INR IN PPP BY COAGULATION ASSAY 1.19 High 0.90-1.10 [facility] Comment on above: Result Comment: ACCC [...] CHEST 1995;108:[id number]. Performed By: #### L [id number] ####[facility] [employer])[address] [place] [address] PROTHROMBIN TIME (PT) IN PPP BY COAGULATION ASSAY 15.1 Seconds High 12.3-14.8 [facility] Comment on above: Performed By: #### L [id number] ####[facility] ([facility])[address] [place] [address] TRIGLYCERIDESon 08-17-2024 FASTING? Unknown Normal [facility] Comment on above: Performed By: #### L [id number] ####[facility] ([facility])[address] [place] [address] Magnesium [Mass/Vol] 119 mg/dL Normal 40-149 [facility] Comment on above: Result Comment: TRIG LYCERIDE REFERENCE RANGE:20 YEARS AND OLDER CARDIOVASCULAR RISKLESS THAN 150 mg/dL LOW [id number] TO 199 mg/dL BORDERLINE [id number] mg/dL AND GREATER HIGH RISK Performed By: #### L [id number] ####[facility] ([facility])[address] [place] [address] TROPONIN Ion 08-17-2024 Troponin I.cardiac [Mass/Vol] 0.04 ng/mL Normal 0.00-0.04 [facility] Comment on above: Performed By: #### L [id number] ####[facility] ([facility])[address] [place] [address] Troponin I.cardiac [Mass/Vol] 0.04 ng/mL Normal 0.00-0.04 [facility] Comment on above: Performed By: #### L [id number] ####[facility] ([facility])[address] [place] [address] VANCOMYCIN, TROUGHon 025 VANCOMYCIN (UG/ML) IN SER/PLAS - TROUGH 23.6 ug/mL Critically high 5.0-20.0 [facility] Comment on above: Performed By: #### L [id number] ####[facility] ([facility])[address] [place] [address] BASIC METABOLIC PANELon 07-22 Anion gap [Moles/Vol] 11 mmol/L Normal 7-20 [facility] Comment on above: Performed By: #### L [id number] ####[facility] ([facility])[address] [place] [address] Calcium [Mass/Vol] 8.9 mg/dL Normal 8.6-10.[address] [facility] Comment on above: Performed By: #### L [id number] ####[facility] ([facility] [place] [address] Chloride [Moles/Vol] 99 mmol/L Normal 98-107 [facility] Comment on above: Performed By: #### L [id number] ####[facility] ([facility] [place] [address] CO2 [Moles/Vol] 38 mmol/L High 21-31 [facility] Comment on above: Performed By: #### L [id number] ####[facility] ([facility] [place] [address] Creatinine [Mass/Vol] 1.10 mg/dL Normal 0.70-1.30 [facility] Comment on above: Performed By: #### L [id number] ####[facility] ([facility])[address] [place] [address] GLOMERULAR FILTRATION RATE ML/MIN/1.73 SQ M.PREDICTED 74.5 mL/min/1.73m*2 Normal >60.0 [facility] Comment on above: Result Comment: [facility]???s estimated glomerular filtration rate (eGFR) will [...] of individuals. Performed By: #### L [id number] ####[facility] ([facility] [place] [address] Glucose [Mass/Vol] 202 mg/dL High 70-[address] [facility] Comment on above: Performed By: #### L [id number] ####[facility] ([facility])[address] [place] [address] Potassium [Moles/Vol] 3.3 mmol/L Low 3.5-5.1 [facility] Comment on above: Performed By: #### L [id number] ####[facility] ([facility])[address] [place] [address] Sodium [Moles/Vol] 145 mmol/L Normal 136-[address] [facility] Comment on above: Performed By: #### L [id number] ####[facility] ([facility])[address] [place] [address] Urea nitrogen [Mass/Vol] 38 mg/dL High 7-25 [facility] Comment on above: Performed By: #### L [id number] ####[facility] ([facility])[address] [place] [address] UREA NITROGEN/CREATININE (MASS RATIO) IN SER/PLAS 34.5 Normal [facility] Comment on above: Performed By: #### L [id number] ####[facility] ([facility])[address] [place] [address] CALCIUM, IONIZEDon CALCIUM IONIZED (MMOL/L) IN BLOOD Normal [facility] Comment on above: Result Comment: C^In calculable Performed By: #### C ALCIUM, IONIZED ####[facility] [id number] [place] [address] [place] CBC WITH AUTO DIFFERENTIALon 08-16-2024 Erythrocyte distribution width (RBC) [Ratio] 15.1 % High 11.5-15.0 [facility] Comment on above: Performed By: #### L [id number] ####[facility] ([facility] [place] [address] ERYTHROCYTE MEAN CORPUSCULAR HEMOGLOBIN CONCENTRATION (G/DL) BY AUTOMATED 30.9 g/dL Low 32.0-35.0 [facility] Comment on above: Performed By: #### L [id number] ####[facility] ([facility] [place] [address] Hematocrit (Bld) [Volume fraction] 52.1 % Normal 39.0-55.0 [facility] Comment on above: Performed By: #### L [id number] ####[facility] ([facility])[address] [place] [address] Hemoglobin (Bld) [Mass/Vol] 16.1 g/dL Normal 13.0-17.0 [facility] Comment on above: Performed By: #### L [id number] ####[facility] ([facility])[address] [place] [address] MCH (RBC) [Entitic mass] 29.4 pg Normal 27.0-33.0 [facility] Comment on above: Performed By: #### L [id number] ####[facility] ([facility])[address] [place] [address] MCV (RBC) [Entitic vol] 95.1 fL Normal 82.0-98.0 [facility] Comment on above: Performed By: #### L [id number] ####[facility] ([facility])[address] [place] [address] NRBC (PER 100 WBCS) BY AUTOMATED COUNT 0.0 % Normal 0 [facility] Comment on above: Performed By: #### L [id number] ####[facility] ([facility])[address] [place] [address] PLATELETS (10*3/UL) IN BLOOD AUTOMATED COUNT 243 10*3/uL Normal 150-400 [facility] Comment on above: Performed By: #### L [id number] ####[facility] ([facility])[address] [place] [address] RBC (Bld) [#/Vol] 5.48 10*6/uL Normal 4.20-5.70 [facility] Comment on above: Performed By: #### L [id number] ####[facility] ([facility])[address] [place] [address] WBC (Bld) [#/Vol] 9.57 10*3/uL Normal 4.00-10.60 [facility] Comment on above: Performed By: #### L [id number] ####[facility] ([facility])[address] [place] [address] CONSULTon 08-16-2024 CONSULT Normal [facility] CONSULT Normal [facility] CTA CHEST W IV CONTRASTon CTA CHEST W IV CONTRAST Invalid Interpretation Code [facility] MAGNESIUMon 08-16-2024 Magnesium [Mass/Vol] 1.9 mg/dL Normal 1.9-2.7 [facility] Comment on above: Performed By: #### L [id number] ####[facility] ([facility])[address] [place] [address] Magnesium [Mass/Vol] 1.7 mg/dL Low 1.9-2.7 [facility] Comment on above: Performed By: #### L [id number] ####[facility] ([facility])[address] [address] MANUAL DIFFERENTIALon 2024 BASOPHILS (10*3/UL) IN BLOOD BY CALCULATION 0.02 10*3/uL Normal 0.00-0.20 [facility] Comment on above: Performed By: #### L [id number] ####[facility] ([facility])[address] [place] [address] BASOPHILS/100 LEUKOCYTES IN BLOOD BY AUTOMATED COUNT 0.2 % Normal 0.0-1.0 [facility] Comment on above: Performed By: #### L [id number] ####[facility] ([facility])[address] [place] [address] EOSINOPHILS (10*3/UL) IN BLOOD BY CALCULATION 0.10 10*3/uL Normal 0.00-0.50 [facility] Comment on above: Performed By: #### L [id number] ####[facility] ([facility])[address] [place] [address] EOSINOPHILS/100 LEUKOCYTES IN BLOOD BY AUTOMATED COUNT 1.0 % Normal 0.0-6.0 [facility] Comment on above: Performed By: #### L [id number] ####[facility] ([facility])[address] [place] [address] IMMATURE GRANULOCYTES (10*3/UL) IN BLOOD BY CALCULATION 0.06 10*3/uL Normal 0.00-0.20 [facility] Comment on above: Performed By: #### L [id number] ####[facility] ([facility])[address] [place] [address] IMMATURE GRANULOCYTES/100 LEUKOCYTES IN BLOOD BY AUTOMATED COUNT 0.6 % Normal 0.0-1.0 [facility] Comment on above: Performed By: #### L [id number] ####[facility] ([facility])[address] [place] [address] LYMPHOCYTES (10*3/UL) IN BLOOD BY CALCULATION 0.73 10*3/uL Low 1.20-4.00 [facility] Comment on above: Performed By: #### L [id number] ####[facility] ([facility])[address] [place] [address] LYMPHOCYTES/100 LEUKOCYTES IN BLOOD BY AUTOMATED COUNT 7.6 % Low 20.0-45.0 [facility] Comment on above: Performed By: #### L [id number] ####[facility] ([facility])[address] [place] [address] MONOCYTES (10*3/UL) IN BLOOD BY CALCUATION 1.52 10*3/uL High 0.10-1.00 [facility] Comment on above: Performed By: #### L [id number] ####[facility] ([facility])[address] [place] [address] MONOCYTES/100 LEUKOCYTES IN BLOOD BY AUTOMATED COUNT 15.9 % High 5.0-12.0 [facility] Comment on above: Performed By: #### L [id number] ####[facility] ([facility])[address] [place] [address] NEUTROPHILS (10*3/UL) IN BLOOD BY CALCULATION 7.1 10*3/uL Normal 1.6-7.6 [facility] Comment on above: Performed By: #### L [id number] ####[facility] ([facility])[address] [place] [address] NEUTROPHILS/100 LEUKOCYTES IN BLOOD BY AUTOMATED COUNT 74.7 % High 40.0-72.0 [facility] Comment on above: Performed By: #### L [id number] ####[facility] ([facility])[address] [place] [address] PHOSPHORUSon 08-16-2024 Magnesium [Mass/Vol] 3.8 mg/dL Normal 2.5-5.0 [facility] Comment on above: Performed By: #### L [id number] ####[facility] ([facility])[address] [place] [address] Magnesium [Mass/Vol] 1.8 mg/dL Low 2.5-5.0 [facility] Comment on above: Performed By: #### L [id number] ####[facility] ([facility])[address] [place] [address] POCT GLUCOSE METER UNSOLICIT ED RESULTSon 08-16-2024 Glucose [Mass/Vol] 189 mg/dL High 70-[address] [facility] Comment on above: Order Comment: Waive d Testing in the ED is performed under the ED CLIA certificate #[id number]. Result Comment: ljon es Performed By: #### L [id number] ####[facility] ([facility])[address] [place] [address] Glucose [Mass/Vol] 205 mg/dL High 70-[address] [facility] Comment on above: Order Comment: Waive d Testing in the ED is performed under the ED CLIA certificate #[id number]. Result Comment: rgil l Performed By: #### L [id number] ####[facility] ([facility])[address] [place] [address] Glucose [Mass/Vol] 200 mg/dL High 70-[address] [facility] Comment on above: Order Comment: Waive d Testing in the ED is performed under the ED CLIA certificate #[id number]. Result Comment: [email or web address] [email or web address] Performed By: #### L [id number] ####[facility] ([facility])[address] [place] [address] Glucose [Mass/Vol] 207 mg/dL High 70-[address] [facility] Comment on above: Order Comment: Waive d Testing in the ED is performed under the ED CLIA certificate #[id number]. Result Comment: oyod er Performed By: #### L [id number] ####[facility] ([facility])[address] [place] [address] POTASSIUMon 08-16-2024 Potassium [Moles/Vol] 3.3 mmol/L Low 3.5-5.1 [facility] Comment on above: Performed By: #### L [id number] ####[facility] ([facility])[address] [place] [address] Potassium [Moles/Vol] 3.5 mmol/L Normal 3.5-5.1 [facility] Comment on above: Performed By: #### L [id number] ####[facility] ([facility])[address] [place] [address] POTASSIUM, WHOLE BLOODon Potassium [Moles/Vol] 3.5 mmol/L Normal 3.5-5.1 [facility] Comment on above: Performed By: #### P OTASSIUM, WHOLE BLOOD ####[facility] [id number] [place] [address] [place] SODIUM, WHOLE BLOODon 2024 SODIUM, WHOLE BLOOD Normal [facility] Comment on above: Result Comment: C^In calculable Performed By: #### S ODIUM, WHOLE BLOOD ####[facility] [id number] [place] [address] [place] TRIGLYCERIDESon 08-16-2024 FASTING? Unknown Normal [facility] Comment on above: Performed By: #### L [id number] ####[facility] (BEAKER)[address] [place] [address] Magnesium [Mass/Vol] 243 mg/dL High 40-149 [facility] Comment on above: Result Comment: TRIG LYCERIDE REFERENCE RANGE:20 YEARS AND OLDER CARDIOVASCULAR RISKLESS THAN 150 mg/dL LOW [id number] TO 199 mg/dL BORDERLINE [id number] mg/dL AND GREATER HIGH RISK Performed By: #### L [id number] ####[facility] (BEAKER)[address] [place] [address] 30on 08-15-2024 30 Normal [facility] 30 Normal [facility] BLOOD CULTUREon 08-15-2024 Bacteria identified Cx Nom (Bld) No growth at 5 days Normal [facility] Comment on above: Order Comment: From a different site than #1. Performed By: #### L [id number] ####[facility] (BEAKER)[address] [place] [address] Basophils Auto (Bld) [#/Vol] on 08-15-2024 Basophils (Bld) [#/Vol] Automated basophil count 0.0-0.1 [facility] Basophils/100 WBC Auto (Bld) on 08-15-2024 Basophils/100 WBC (Bld) Automated basophil % Low 0.2-2.0 [facility] CALCIUM, IONIZEDon CALCIUM IONIZED (MMOL/L) IN BLOOD 1.23 mmol/L Normal 1.15-1.33 [facility] Comment on above: Performed By: #### C ALCIUM, IONIZED ####[facility] RESP[facility] [id number] [place] [address] [place] CBC WITH AUTO DIFFERENTIALon 08-15-2024 Basophils (Bld) [#/Vol] 0.01 10*3/uL Normal 0.00-0.20 [facility] Comment on above: Performed By: #### L [id number] ####[facility] (BEAKER)[address] [place] [address] Basophils/100 WBC (Bld) 0.1 % Normal 0.0-1.0 [facility] Comment on above: Performed By: #### L [id number] ####[facility] (BEAKER)[address] [place] [address] Eosinophils (Bld) [#/Vol] 0.01 10*3/uL Normal 0.00-0.50 [facility] Comment on above: Performed By: #### L [id number] ####[facility] ([facility] [place] [address] Eosinophils/100 WBC (Bld) 0.1 % Normal 0.0-6.0 [facility] Comment on above: Performed By: #### L [id number] ####[facility] ([facility])[address] [place] [address] Erythrocyte distribution width (RBC) [Ratio] 15.2 % High 11.5-15.0 [facility] Comment on above: Performed By: #### L [id number] ####[facility] ([facility] [place] [address] ERYTHROCYTE MEAN CORPUSCULAR HEMOGLOBIN CONCENTRATION (G/DL) BY AUTOMATED 33.8 g/dL Normal 32.0-35.0 [facility] Comment on above: Performed By: #### L [id number] ####[facility] ([facility] [place] [address] Hematocrit (Bld) [Volume fraction] 47.1 % Normal 39.0-55.0 [facility] Comment on above: Performed By: #### L [id number] ####[facility] (BEAKER)[address] [place] [address] Hemoglobin (Bld) [Mass/Vol] 15.9 g/dL Normal 13.0-17.0 [facility] Comment on above: Performed By: #### L [id number] ####[facility] (BEAKER)[address] [place] [address] Immature granulocytes (Bld) [#/Vol] 0.05 10*3/uL Normal 0.00-0.20 [facility] Comment on above: Performed By: #### L [id number] ####[facility] ([facility])[address] [facility] [place] [address] Immature granulocytes/100 WBC (Bld) 0.7 % Normal 0.0-1.0 [facility] Comment on above: Performed By: #### L [id number] ####[facility] ([facility])[address] [place] [address] Lymphocytes (Bld) [#/Vol] 0.54 10*3/uL Low 1.20-4.00 [facility] Comment on above: Performed By: #### L [id number] ####[facility] ([facility])[address] [place] [address] Lymphocytes/100 WBC (Bld) 7.2 % Low 20.0-45.0 [facility] Comment on above: Performed By: #### L [id number] ####[facility] ([facility])[address] [place] [address] MCH (RBC) [Entitic mass] 31.8 pg Normal 27.0-33.0 [facility] Comment on above: Performed By: #### L [id number] ####[facility] ([facility])[address] [place] [address] MCV (RBC) [Entitic vol] 94.2 fL Normal 82.0-98.0 [facility] Comment on above: Performed By: #### L [id number] ####[facility] ([facility])[address] [facility] [place] [address] Monocytes (Bld) [#/Vol] 1.23 10*3/uL High 0.10-1.00 [facility] Comment on above: Performed By: #### L [id number] ####[facility] HOSPITAL)[address] [place] [address] Monocytes/100 WBC (Bld) 16.3 % High 5.0-12.0 [facility] Comment on above: Performed By: #### L [id number] ####[facility] (BEAKER)[address] [place] [address] Neutrophils (Bld) [#/Vol] 5.70 10*3/uL Normal 1.60-7.60 [facility] Comment on above: Performed By: #### L [id number] ####[facility] (BEAKER)[address] [place] [address] Neutrophils/100 WBC (Bld) 75.6 % High 40.0-72.0 [facility] Comment on above: Performed By: #### L [id number] ####[facility] (BEAKER)[address] [place] [address] NRBC (PER 100 WBCS) BY AUTOMATED COUNT 0.3 % High 0 [facility] Comment on above: Performed By: #### L [id number] ####[facility] (BEGODWIN)[address] [place] [address] PLATELETS (10*3/UL) IN BLOOD AUTOMATED COUNT 237 10*3/uL Normal 150-400 [facility] Comment on above: Performed By: #### L [id number] ####[facility] (BEAKER)[address] [place], [place] [address] RBC (Bld) [#/Vol] 5.00 10*6/uL Normal 4.20-5.70 [facility] Comment on above: Performed By: #### L [id number] ####[facility] (BEAKER)[address] [place], [place] [address] WBC (Bld) [#/Vol] 7.54 10*3/uL Normal 4.00-10.60 [facility] Comment on above: Performed By: #### L [id number] ####[facility] (BEAKER)[address] [place] [address] COMPREHENSIVE METABOLIC PANE Kris 08-15-2024 Albumin [Mass/Vol] 2.9 g/dL Low 3.5-5.[address] [facility] Comment on above: Performed By: #### L [id number] ####[facility] (BEAKER)[address] [place] [address] ALP [Catalytic activity/Vol] 58 U/L Normal 34-104 [facility] Comment on above: Performed By: #### L [id number] ####[facility] [place] [address] ALT [Catalytic activity/Vol] 21 U/L Normal 7-52 [facility] Comment on above: Performed By: #### L [id number] ####[facility] ([facility])[address] [place] [address] Anion gap [Moles/Vol] 13 mmol/L Normal 7-20 [facility] Comment on above: Performed By: #### L [id number] ####[facility] ([facility])[address] [place] [address] AST [Catalytic activity/Vol] 29 U/L Normal 13-39 [facility] Comment on above: Performed By: #### L [id number] ####[facility] ([facility])[address] [place] [address] Bilirubin [Mass/Vol] 1.0 mg/dL Normal 0.3-1.0 [facility] Comment on above: Performed By: #### L [id number] ####[facility] ([facility])[address] [place] [address] Calcium [Mass/Vol] 8.2 mg/dL Low 8.6-10.[address] [facility] Comment on above: Performed By: #### L [id number] ####[facility] [place] [address] Chloride [Moles/Vol] 90 mmol/L Low 98-107 [facility] Comment on above: Performed By: #### L [id number] ####[facility] (BEAKER)[address] [place] [address] CO2 [Moles/Vol] 32 mmol/L High 21-31 [facility] Comment on above: Performed By: #### L [id number] ####[facility] ([facility])[address] [place] [address] Creatinine [Mass/Vol] 1.17 mg/dL Normal 0.70-1.30 [facility] Comment on above: Performed By: #### L [id number] ####[facility] ([facility])[address] [place] [address] GLOMERULAR FILTRATION RATE ML/MIN/1.73 SQ M.PREDICTED 69.2 mL/min/1.73m*2 Normal >60.0 [facility] Comment on above: Result Comment: [facility]???s estimated glomerular filtration rate (eGFR) will [...] of individuals. Performed By: #### L [id number] ####[facility] ([facility])[address] [place] [address] Glucose [Mass/Vol] 219 mg/dL High 70-[address] [facility] Comment on above: Performed By: #### L [id number] ####[facility] ([facility])[address] [place] [address] Potassium [Moles/Vol] 4.0 mmol/L Normal 3.5-5.1 [facility] Comment on above: Performed By: #### L [id number] ####[facility] ([facility])[address] [place] [address] Protein [Mass/Vol] 5.5 g/dL Low 6.0-8.[address] [facility] Comment on above: Performed By: #### L [id number] ####[facility] ([facility])[address] [place] [address] Sodium [Moles/Vol] 131 mmol/L Low 136-[address] [facility] Comment on above: Performed By: #### L [id number] ####[facility] (BEAKER)[address] [place] [address] Urea nitrogen [Mass/Vol] 42 mg/dL High 7-25 [facility] Comment on above: Performed By: #### L [id number] ####[facility] (BEAKER)[address] [place] [address] UREA NITROGEN/CREATININE (MASS RATIO) IN SER/PLAS 35.9 Normal [facility] Comment on above: Performed By: #### L [id number] ####[facility] (BEAKER)[address] [place] [address] Eosinophils/100 WBC Auto (Bl d)on 08-15-2024 Eosinophils/100 WBC (Bld) Automated eosinophil % Low 0.9-7.0 [facility] Erythrocyte distribution wid th Auto (RBC) [Ratio]on 08-15-2024 Erythrocyte distribution width (RBC) [Ratio] Erythrocyte distribution width [Ratio] by Automated count High 11.0-15.0 [facility] Estimated glomerular filtrat ion rate (GFR) non- Americanon 08-15-2024 GFR/1.73 sq M.predicted among non-blacks MDRD (S/P/Bld) [Vol rate/Area] Estimated glomerular filtration rate (GFR) non- Low >=60 mL/min/1.73m 2 [facility] Globulin Calc (S) [Mass/Vol] on 08-15-2024 Globulin (S) [Mass/Vol] Serum globulin measurement by calculation (mass/volume) [facility] HEMOGLOBIN A1Con 08-15-2024 Glucose [Mass/Vol] 189 mg/dL Normal [facility] Comment on above: Performed By: #### L [id number] ####[facility] (BEAKER)[address] [place] [address] HbA1c (Bld) [Mass fraction] 8.2 % High 4.0-6.0 [facility] Comment on above: Performed By: #### L [id number] ####[facility] (BEAKER)[address] [place] [address] HPon 08-15-2024 HP Normal [facility] Hematocrit Auto (Bld) [Volum e fraction]on 08-15-2024 Hematocrit (Bld) [Volume fraction] Hematocrit [Volume Fraction] of Blood by Automated count 42.0-54.0 [facility] Hemoglobin [Mass/volume] in Bloodon 08-15-2024 Hemoglobin (Bld) [Mass/Vol] Hemoglobin [Mass/volume] in Blood 14.0-18.0 [facility] LIPASEon 08-15-2024 LIPASE (U/L) IN SER/PLAS 28 U/L Normal 11-82 [facility] Comment on above: Result Comment: M-CH EMISTRY SPECIMEN MODERATELY HEMOLYZED RESULTS MAY NOT BE ACCURATE Performed By: #### L [id number] ####[facility] (BEAKER)[address] [place] [address] Laboratory - Chemistry and C hemistry - challengeon 08-15-2024 HCO3 (Bld) [Moles/Vol] 34.7 mmol/L High 22.0-26.0 [facility] Albumin [Mass/Vol] 2.6 g/dL Low 3.4-5.0 [facility] ALP [Catalytic activity/Vol] 81 U/L 46-116 [facility] ALT [Catalytic activity/Vol] 37 U/L 16-63 [facility] AST [Catalytic activity/Vol] 28 U/L 15-37 [facility] Bilirubin [Mass/Vol] 1.2 mg/dL High 0.2-1.0 [facility] Calcium [Mass/Vol] 9.2 mg/dL 8.5-10.1 [facility] Chloride [Moles/Vol] 101 mmol/L 98-107 [facility] CO2 [Moles/Vol] 35.4 mmol/L High 21.0-32.0 [facility] Creatinine [Mass/Vol] 1.66 mg/dL High 0.70-1.30 [facility] GFR/1.73 sq M.predicted MDRD (S/P/Bld) [Vol rate/Area] 51 mL/min/{1.73_m2} Low >=60 mL/min/1.73m 2 [facility] Glucose [Mass/Vol] 268 mg/dL High 74-106 [facility] Potassium [Moles/Vol] 3.8 mmol/L 3.5-5.1 [facility] Protein [Mass/Vol] 6.3 g/dL Low 6.4-8.2 [facility] Sodium [Moles/Vol] 143 mmol/L 136-145 [facility] Urea nitrogen [Mass/Vol] 52.0 mg/dL High 7.0-18.0 [facility] Urea nitrogen/Creatinine [Mass ratio] 31.3 mg/mg [facility] Laboratory - Hematology and Cell countson 08-15-2024 Immature granulocytes/100 WBC (Bld) 0.8 % High 0.0-0.5 [facility] Leukocytes [#/volume] correc beatris for nucleated erythrocytes in Blood by Automated counon 08-15-2024 WBC corrected for nucl RBC Auto (Bld) [#/Vol] Leukocytes [#/volume] corrected for nucleated erythrocytes in Blood by Automated coun 4.0-11.0 [facility] Lymphocytes Auto (Bld) [#/Vo l]on 08-15-2024 Lymphocytes (Bld) [#/Vol] Lymphocytes [#/volume] in Blood by Automated count Low 1.2-3.8 [facility] Lymphocytes/100 WBC Auto (Bl d)on 08-15-2024 Lymphocytes/100 WBC (Bld) Lymphocytes/100 leukocytes in Blood by Automated count Low 20.5-60.0 [facility] MAGNESIUMon 08-15-2024 Magnesium [Mass/Vol] 1.6 mg/dL Low 1.9-2.7 [facility] Comment on above: Performed By: #### L [id number] ####[facility] (BEAKER)[address] [place] [address] MCH Auto (RBC) [Entitic mass ]on 08-15-2024 MCH (RBC) [Entitic mass] MCH [Entitic mass] by Automated count 25.9-34.0 [facility] MCHC Auto (RBC) [Mass/Vol]on 08-15-2024 MCHC (RBC) [Mass/Vol] MCHC [Mass/volume] by Automated count 29.9-35.2 [facility] MCV Auto (RBC) [Entitic vol] on 08-15-2024 MCV (RBC) [Entitic vol] MCV [Entitic volume] by Automated count 80.0-94.0 [facility] MRSA/MSSA DNA NASALon 2024 MRSA DNA Negative Normal Negative [facility] Comment on above: Order Comment: Testi [...] preclude nasal colonization. Performed By: #### L [id number] ####[facility] (BEAKER)[address] [place] [address] MSSA DNA Negative Normal Negative [facility] Comment on above: Order Comment: Testi [...] preclude nasal colonization. Performed By: #### L [id number] ####[facility] (BEAKER)[address] [place] [address] Monocytes Auto (Bld) [#/Vol] on 08-15-2024 Monocytes (Bld) [#/Vol] Automated blood monocyte count 0.3-0.8 [facility] Monocytes/100 WBC Auto (Bld) on 08-15-2024 Monocytes/100 WBC (Bld) Automated monocyte % 1.7-12.0 [facility] Neutrophils Auto (Bld) [#/Vo l]on 08-15-2024 Neutrophils (Bld) [#/Vol] Neutrophils [#/volume] in Blood by Automated count 1.4-6.5 [facility] Neutrophils/100 WBC Auto (Bl d)on 08-15-2024 Neutrophils/100 WBC (Bld) Automated neutrophil % High 43.0-75.0 [facility] No Panel Informationon 08-15 Avinash Test Positive POSITIVE [facility] Arterial Blood Base Excess 11.0 mmol/L High <2.0-2.0 [facility] Arterial Blood Oxygen Saturation 97.0 % [facility] Arterial Blood Partial Pressure CO2 47.8 mm[Hg] High 35.0-45.0 [facility] Arterial Blood Partial Pressure O2 81.0 mm[Hg] 80.0-100.0 [facility] Arterial Blood pH 7.469 High 7.350-7.450 [facility] Blood Gas PEEP 8 [facility] Blood Gas Sample Site RIGHT RADIAL F [facility] Blood Gas Set Respiration Rate 22 [facility] Blood Gas Tidal Volume 600 Fi [facility] Blood Gas Ventilator Mode AC/VC [facility] FiO2 90 % [facility] Oxygen Delivery Device VENT Fi [facility] Reference Lab Test #2 Result 13.8 [facility] Eosinophils # (Auto) 0.0 10 3/uL 0.0-0.7 [facility] Immature Granulocyte # (Auto) 0.06 10 3/uL High 0.00-0.03 [facility] PHOSPHORUSon 08-15-2024 Magnesium [Mass/Vol] 2.7 mg/dL Normal 2.5-5.0 [facility] Comment on above: Performed By: #### L [id number] ####[facility] (BEAKER)[address] [place] [address] POCT GLUCOSE METER UNSOLICIT ED RESULTSon 08-15-2024 Glucose [Mass/Vol] 249 mg/dL High 70-[address] [facility] Comment on above: Order Comment: Waive d Testing in the ED is performed under the ED CLIA certificate #[id number]. Result Comment: oyod er Performed By: #### L [id number] ####[facility] (BEAKER)[address] [facility] [address] Glucose [Mass/Vol] 217 mg/dL High 70-[address] [facility] Comment on above: Order Comment: Waive d Testing in the ED is performed under the ED CLIA certificate #[id number]. Result Comment: [email or web address] Performed By: #### L [id number] ####[facility] (BEAKER)[address] [place] [address] Glucose [Mass/Vol] 233 mg/dL High 70-[address] [facility] Comment on above: Order Comment: Waive d Testing in the ED is performed under the ED CLIA certificate #[id number]. Result Comment: [email or web address] [email or web address] Performed By: #### L [id number] ####[facility] (BEAKER)[address] [place] [address] POTASSIUM, WHOLE BLOODon Potassium [Moles/Vol] 3.4 mmol/L Low 3.5-5.1 [facility] Comment on above: Performed By: #### P OTASSIUM, WHOLE BLOOD ####[facility] [id number] [place] [address] [facility] Platelet mean volume Auto (B ld) [Entitic vol]on 08-15-2024 Platelet mean volume (Bld) [Entitic vol] Platelet mean volume [Entitic volume] in Blood by Automated count 9.5-13.5 [facility] Platelets Auto (Bld) [#/Vol] on 08-15-2024 Platelets (Bld) [#/Vol] Platelets [#/volume] in Blood by Automated count 150-450 [facility] RBC Auto (Bld) [#/Vol]on RBC (Bld) [#/Vol] Erythrocytes [#/volume] in Blood by Automated count 4.70-6.10 [facility] SODIUM, WHOLE BLOODon 2024 SODIUM, WHOLE BLOOD 136 Normal 136-145 [facility] Comment on above: Performed By: #### S ODIUM, WHOLE BLOOD ####[facility] [id number] [place] [address] [facility] Serum or plasma albumin/glob ulin mass ratioon 08-15-2024 Albumin/Globulin [Mass ratio] Serum or plasma albumin/globulin mass ratio [facility] Serum or plasma anion gap de terminationon 08-15-2024 Anion gap [Moles/Vol] Serum or plasma an ion gap determination [facility] TRIGLYCERIDESon 08-15-2024 FASTING? unknown Normal [facility] Comment on above: Order Comment: Monit or triglycerides while patient is on propofol. Consult Nutrition if greater than 500 mg/dL. Performed By: #### L [id number] ####[facility] ([facility])[address] [place] [address] Magnesium [Mass/Vol] 3920 mg/dL High 40-149 [facility] Comment on above: Order Comment: Monit or triglycerides while patient is on propofol. Consult Nutrition if greater than 500 mg/dL. Result Comment: TRIG LYCERIDE REFERENCE RANGE:20 YEARS AND OLDER CARDIOVASCULAR RISKLESS THAN 150 mg/dL LOW [id number] TO 199 mg/dL BORDERLINE [id number] mg/dL AND GREATER HIGH RISK Performed By: #### L [id number] ####[facility] ([facility])[address] [place] [address] TROPONIN Ion 08-15-2024 Troponin I.cardiac [Mass/Vol] 0.04 ng/mL Normal 0.00-0.04 [facility] Comment on above: Performed By: #### L [id number] ####[facility] ([facility])[address] [place] [address] URINALYSIS WITH MICROSCOPICo n 08-15-2024 BILIRUBIN, TOTAL PRESENCE IN URINE Negative Normal Negative [facility] Comment on above: Performed By: #### L [id number] ####[facility] ([facility])[address] [place] [address] Clarity (U) Clear Normal Clear [facility] Comment on above: Performed By: #### L [id number] ####[facility] ([facility])[address] [place] [address] Color (U) Colorless Normal Colorless, Yellow, Light-Yellow [facility] Comment on above: Performed By: #### L [id number] ####[facility] (BEAKER)[address] [place] [address] GLUCOSE (MG/DL) IN URINE Normal Normal Normal [facility] Comment on above: Performed By: #### L [id number] ####[facility] (BEAKER)[address] [place] [address] HEMOGLOBIN PRESENCE IN URINE Small Abnormal Negative [facility] Comment on above: Performed By: #### L [id number] ####[facility] (BEAKER)[address] [place] [address] Ketones Ql (U) Negative Normal Negative [facility] Comment on above: Performed By: #### L [id number] ####[facility] ([facility])[address] [place] [address] LEUKOCYTE ESTERASE PRESENCE IN URINE BY TEST STRIP Negative Normal Negative [facility] Comment on above: Performed By: #### L [id number] ####[facility] ([facility])[address] [place] [address] MUCUS (#/LPF) IN URINE SEDIMENT Occasional Normal None Seen, Occasional, Few [facility] Comment on above: Performed By: #### L [id number] ####[facility] (BEAKER)[address] [place] [address] NITRITE PRESENCE IN URINE Negative Normal Negative [facility] Comment on above: Performed By: #### L [id number] ####[facility] (BEAKER)[address] [place] [address] pH (U) 5.5 [pH] Normal 5.0-8.0 [facility] Comment on above: Performed By: #### L [id number] ####[facility] (BEAKER)[address] [place] [address] Protein (U) [Mass/Vol] Negative Normal [facility] on above: Performed By: #### L [id number] ####[facility] (BEAKER)[address] [place] [address] RBC (#/HPF) IN URINE SEDIMENT 11-20 Abnormal None Seen, 0-2 [facility] Comment on above: Performed By: #### L [id number] ####[facility] (BEAKER)[address] [place] [address] Specific gravity (U) [Rel density] 1.011 Normal 1.010-1.030 [facility] Comment on above: Performed By: #### L [id number] ####[facility] [place] [address] SQUAMOUS EPITHELIAL CELLS (#/LPF) IN URINE SEDIMENT None Seen Normal None Seen, Occasional, Few [facility] Comment on above: Performed By: #### L [id number] ####[facility] (BEAKER)[address] [place] [address] UROBILINOGEN (MG/DL) IN URINE Normal Normal Normal [facility] Comment on above: Performed By: #### L [id number] ####[facility] ([facility])[address] [place] [address] WBC (LEUKOCYTE) (#/HPF) IN URINE SEDIMENT 3-5 Abnormal None Seen, 0-2 [facility] Comment on above: Performed By: #### L [id number] ####[facility] [place] [address] Basophils Auto (Bld) [#/Vol] on 08-14-2024 Basophils (Bld) [#/Vol] Automated basophil count 0.0-0.1 [facility] Basophils/100 WBC Auto (Bld) on 08-14-2024 Basophils/100 WBC (Bld) Automated basophil % 0.2-2.0 [facility] Eosinophils/100 WBC Auto (Bl d)on 08-14-2024 Eosinophils/100 WBC (Bld) Automated eosinophil % Low 0.9-7.0 [facility] Erythrocyte distribution wid th Auto (RBC) [Ratio]on 08-14-2024 Erythrocyte distribution width (RBC) [Ratio] Erythrocyte distribution width [Ratio] by Automated count High 11.0-15.0 [facility] Estimated glomerular filtrat ion rate (GFR) non- Americanon 08-14-2024 GFR/1.73 sq M.predicted among non-blacks MDRD (S/P/Bld) [Vol rate/Area] Estimated glomerular filtration rate (GFR) non- Low >=60 mL/min/1.73m 2 [facility] Globulin Calc (S) [Mass/Vol] on 08-14-2024 Globulin (S) [Mass/Vol] Serum globulin measurement by calculation (mass/volume) [facility] Hematocrit Auto (Bld) [Volum e fraction]on 08-14-2024 Hematocrit (Bld) [Volume fraction] Hematocrit [Volume Fraction] of Blood by Automated count 42.0-54.0 [facility] Hemoglobin [Mass/volume] in Bloodon 08-14-2024 Hemoglobin (Bld) [Mass/Vol] Hemoglobin [Mass/volume] in Blood 14.0-18.0 [facility] Laboratory - Chemistry and C hemistry - challengeon 08-14-2024 HCO3 (Bld) [Moles/Vol] 30.8 mmol/L High 22.0-26.0 [facility] Albumin [Mass/Vol] 2.4 g/dL Low 3.4-5.0 [facility] ALP [Catalytic activity/Vol] 82 U/L 46-116 [facility] ALT [Catalytic activity/Vol] 39 U/L 16-63 [facility] AST [Catalytic activity/Vol] 24 U/L 15-37 [facility] Bilirubin [Mass/Vol] 1.1 mg/dL High 0.2-1.0 [facility] Calcium [Mass/Vol] 8.6 mg/dL 8.5-10.1 [facility] Chloride [Moles/Vol] 102 mmol/L 98-107 [facility] CO2 [Moles/Vol] 32.4 mmol/L High 21.0-32.0 [facility] Creatinine [Mass/Vol] 1.64 mg/dL High 0.70-1.30 [facility] GFR/1.73 sq M.predicted MDRD (S/P/Bld) [Vol rate/Area] 51 mL/min/{1.73_m2} Low >=60 mL/min/1.73m 2 [facility] Glucose [Mass/Vol] 194 mg/dL High 74-106 [facility] Potassium [Moles/Vol] 3.9 mmol/L 3.5-5.1 [facility] Protein [Mass/Vol] 5.8 g/dL Low 6.4-8.2 [facility] Sodium [Moles/Vol] 140 mmol/L 136-145 [facility] Urea nitrogen [Mass/Vol] 54.0 mg/dL High 7.0-18.0 [facility] Urea nitrogen/Creatinine [Mass ratio] 32.9 mg/mg [facility] Laboratory - Hematology and Cell countson 08-14-2024 Immature granulocytes/100 WBC (Bld) 0.8 % High 0.0-0.5 [facility] Leukocytes [#/volume] correc beatris for nucleated erythrocytes in Blood by Automated counon 08-14-2024 WBC corrected for nucl RBC Auto (Bld) [#/Vol] Leukocytes [#/volume] corrected for nucleated erythrocytes in Blood by Automated coun 4.0-11.0 [facility] Lymphocytes Auto (Bld) [#/Vo l]on 08-14-2024 Lymphocytes (Bld) [#/Vol] Lymphocytes [#/volume] in Blood by Automated count Low 1.2-3.8 [facility] Lymphocytes/100 WBC Auto (Bl d)on 08-14-2024 Lymphocytes/100 WBC (Bld) Lymphocytes/100 leukocytes in Blood by Automated count Low 20.5-60.0 [facility] MCH Auto (RBC) [Entitic mass ]on 08-14-2024 MCH (RBC) [Entitic mass] MCH [Entitic mass] by Automated count 25.9-34.0 [facility] MCHC Auto (RBC) [Mass/Vol]on 08-14-2024 MCHC (RBC) [Mass/Vol] MCHC [Mass/volume] by Automated count 29.9-35.2 [facility] MCV Auto (RBC) [Entitic vol] on 08-14-2024 MCV (RBC) [Entitic vol] MCV [Entitic volume] by Automated count High 80.0-94.0 [facility] Monocytes Auto (Bld) [#/Vol] on 08-14-2024 Monocytes (Bld) [#/Vol] Automated blood monocyte count 0.3-0.8 [facility] Monocytes/100 WBC Auto (Bld) on 08-14-2024 Monocytes/100 WBC (Bld) Automated monocyte % 1.7-12.0 [facility] Neutrophils Auto (Bld) [#/Vo l]on 08-14-2024 Neutrophils (Bld) [#/Vol] Neutrophils [#/volume] in Blood by Automated count 1.4-6.5 [facility] Neutrophils/100 WBC Auto (Bl d)on 08-14-2024 Neutrophils/100 WBC (Bld) Automated neutrophil % High 43.0-75.0 [facility] [facility] No Panel Informationon 08-14 Avinash Test Positive POSITIVE [facility] Arterial Blood Base Excess 6.2 mmol/L High <2.0-2.0 [facility] Arterial Blood Oxygen Saturation 93.3 % [facility] Arterial Blood Partial Pressure CO2 48.3 mm[Hg] High 35.0-45.0 [facility] Arterial Blood Partial Pressure O2 62.0 mm[Hg] Low 80.0-100.0 [facility] Arterial Blood pH 7.413 7.350-7.450 [facility] Blood Gas PEEP +8 [facility] Blood Gas Sample Site RIGHT RADIAL F [facility] Blood Gas Set Respiration Rate 22 [facility] Blood Gas Tidal Volume 600 Fi [facility] Blood Gas Ventilator Mode AC [facility] FiO2 100 % [facility] Oxygen Delivery Device VENT Fi [facility] Eosinophils # (Auto) 0.0 10 3/uL 0.0-0.7 [facility] Immature Granulocyte # (Auto) 0.05 10 3/uL High 0.00-0.03 [facility] Platelet mean volume Auto (B ld) [Entitic vol]on 08-14-2024 Platelet mean volume (Bld) [Entitic vol] Platelet mean volume [Entitic volume] in Blood by Automated count 9.5-13.5 [facility] Platelets Auto (Bld) [#/Vol] on 08-14-2024 Platelets (Bld) [#/Vol] Platelets [#/volume] in Blood by Automated count 150-450 [facility] RBC Auto (Bld) [#/Vol]on RBC (Bld) [#/Vol] Erythrocytes [#/volume] in Blood by Automated count 4.70-6.10 [facility] Serum or plasma albumin/glob ulin mass ratioon 08-14-2024 Albumin/Globulin [Mass ratio] Serum or plasma albumin/globulin mass ratio [facility] Serum or plasma anion gap de terminationon 08-14-2024 Anion gap [Moles/Vol] Serum or plasma an ion gap determination [facility] URINE CULTURE, ROUTINEon Bacteria identified Cx Nom (U) Urine Culture, Routine [facility] Healthcare Bacteria identified Cx Nom (U) No growth [facility] Bacteria identified Cx Nom (U) Performed at: [facility] B[facility] identified Cx Nom (U) [address] [place] [address] [phone] [facility] Bacteria identified Cx Nom (U) Automotive Shop Foreman: Tyron Saeed PhD, Phone: [phone] [facility] Basophils Auto (Bld) [#/Vol] on 04-08-2024 Basophils (Bld) [#/Vol] 0.1 10 3/uL 0.0-0.1 [facility] Basophils/100 WBC Auto (Bld) on 04-08-2024 Basophils/100 WBC (Bld) 0.4 % 0.2-2.0 [facility] Eosinophils/100 WBC Auto (Bl d)on 04-08-2024 Eosinophils/100 WBC (Bld) 1.7 % 0.9-7.0 [facility] Erythrocyte distribution wid th Auto (RBC) [Ratio]on 04-08-2024 Erythrocyte distribution width (RBC) [Ratio] 13.9 % 11.0-15.0 [facility] Estimated glomerular filtrat ion rate (GFR) non- Americanon 04-08-2024 GFR/1.73 sq M.predicted among non-blacks MDRD (S/P/Bld) [Vol rate/Area] mL/min/{1.73_m2} >=60 [facility] Hematocrit Auto (Bld) [Volum e fraction]on 04-08-2024 Hematocrit (Bld) [Volume fraction] 45.1 % 42.0-54.0 [facility] Hemoglobin [Mass/volume] in Bloodon 04-08-2024 Hemoglobin (Bld) [Mass/Vol] 14.7 g/dL 14.0-18.0 [facility] Kris 04-08-2024 L Specimen: [id number] Received: 04/09/24 Status: SOU Req Num: [id number] Spec Type: Surgical Subm Dr: Rc Curtis DPM, MS Tissues: A Extremity - Amputation, Non-Traumatic (R FOREFOOT) B Extremity - Amputation, Non-Traumatic (R FIRST METATARSEL) Procedures: HE/5, Gross/Micro L5/2, Decalcification/2 Age/ Patient Sex Location Account Attending Physician Tyler Mckinney W 63/M LABELL [id number] Rc Curtis DPM, MS SPEC NUM: [id number] RECD: 04/09/24 STATUS: [facility] REQ NUM: [id number] KATHIE: 04/08/[address]: Rc Curtis DPM, MS ENTERED: 04/09/24 [facility] DR: Ekta Heath SPEC TYPE: Surgical DEPT: ALEJANDRO JACOBS ENTERED BY: [id number] RECV BY: [id number] ORDERED: HE/5, Gross/Micro L5/2, Decalcification/2 ORDERED: HE/5, [...] of the ulcerated lesion reveals -------- Specimen: [id number] Received: 04/09/24 Status: TAMI Colon Num: [id number] Spec Type: Surgical Subm Dr: Rc Curtis,DPM, MS Tissues: A Extremity - Amputation, Non-Traumatic (R FOREFOOT) B Extremity - Amputation, Non-Traumatic (R FIRST METATARSEL) Procedures: HE/5, Gross/Micro L5/2, Decalcification/2 -------- Patient: Tyler Mckinney [id number] (Continued) -------- Specimen: [id number] Received: 04/09/24 (Continued) Gross Description (Continued) Signed (signature on file) Genaro Zamora MD 04/19/24 1844 -------- Specimen: [id number] Received: 04/09/24 Status: TAMI Colon Num: [id number] Spec Type: Surgical Subm Dr: Rc Curtis,DPM, MS Tissues: A Extremity - Amputation, Non-Traumatic (R FOREFOOT) B Extremity - Amputation, Non-Traumatic (R FIRST METATARSEL) Procedures: HE/5, Gross/Micro L5/2, Decalcification/2 -------- Patient: Tyler Mckinney [id number] (Continued) -------- Specimen: [id number] Received: 04/09/24 (Continued) Gross Description (Continued) exposed bone. The lesion is abutting the soft tissue margin. The resection margin of the metatarsals are inked first blue, second green, third yellow, fourth orange, fifth red. In Store Marketing Associate sections are as follows: A1 soft tissue margin en face A2 first metatarsal bone margin en face, (submitted in decal before routine processing) A3 remaining metatarsal bone margins en face, (submitted in decal before routine processing) A4 agency sales representative section of the lesion with [...] performed supporting the above interpretation CPT Codes 09327 [id number] 12712 x2 -------- -------- Specimen: [id number] Received: 04/09/24 Status: TAMI Colon Num: [id number] Spec (more content not included)... Normal [facility] Laboratory - Chemistry and C hemistry - challengeon 04-08-2024 Calcium [Mass/Vol] 10.6 mg/dL High 8.5-10.1 [facility] Chloride [Moles/Vol] 98 mmol/L 98-107 [facility] CO2 [Moles/Vol] 34.6 mmol/L High 21.0-32.0 [facility] Creatinine [Mass/Vol] 1.03 mg/dL 0.70-1.30 [facility] GFR/1.73 sq M.predicted MDRD (S/P/Bld) [Vol rate/Area] mL/min/{1.73_m2} >=60 [facility] Glucose [Mass/Vol] 178 mg/dL High 74-106 [facility] Potassium [Moles/Vol] 4.4 mmol/L 3.5-5.1 [facility] Sodium [Moles/Vol] 135 mmol/L Low 136-145 [facility] Urea nitrogen [Mass/Vol] 16.0 mg/dL 7.0-18.0 [facility] Urea nitrogen/Creatinine [Mass ratio] 15.5 mg/mg [facility] Laboratory - Hematology and Cell countson 04-08-2024 Immature granulocytes/100 WBC (Bld) 1.1 % High 0.0-0.5 [facility] Leukocytes [#/volume] correc beatris for nucleated erythrocytes in Blood by Automated counon 04-08-2024 WBC corrected for nucl RBC Auto (Bld) [#/Vol] 13.3 10 3/uL High 4.0-11.0 [facility] Lymphocytes Auto (Bld) [#/Vo l]on 04-08-2024 Lymphocytes (Bld) [#/Vol] 1.7 10 3/uL 1.2-3.8 [facility] Lymphocytes/100 WBC Auto (Bl d)on 04-08-2024 Lymphocytes/100 WBC (Bld) 12.5 % Low 20.5-60.0 [facility] MCH Auto (RBC) [Entitic mass ]on 04-08-2024 MCH (RBC) [Entitic mass] 31.1 pg 25.9-34.0 [facility] MCHC Auto (RBC) [Mass/Vol]on 04-08-2024 MCHC (RBC) [Mass/Vol] 32.6 g/dL 29.9-35.2 [facility] MCV Auto (RBC) [Entitic vol] on 04-08-2024 MCV (RBC) [Entitic vol] 95.6 fL High 80.0-94.0 [facility] Monocytes Auto (Bld) [#/Vol] on 04-08-2024 Monocytes (Bld) [#/Vol] 1.0 10 3/uL High 0.3-0.8 [facility] Monocytes/100 WBC Auto (Bld) on 04-08-2024 Monocytes/100 WBC (Bld) 7.3 % 1.7-12.0 [facility] Neutrophils Auto (Bld) [#/Vo l]on 04-08-2024 Neutrophils (Bld) [#/Vol] 10.3 10 3/uL High 1.4-6.5 [facility] Neutrophils/100 WBC Auto (Bl d)on 04-08-2024 Neutrophils/100 WBC (Bld) 77.0 % High 43.0-75.0 [facility] No Panel InformationOrdered By: Rc Curtis on 04-08-2024 Acid Fast Smear [facility] AFB Specimen Processing [facility] Anaerobic Cult, Extended Incub [facility] Tissue Culture [facility] No Panel Informationon 04-08 Fungal Smear Result \R\ Fungus Stain [facility] Gram Stain Result 1 \R\ Gram Stain Result [facility] Miscellaneous Test Comment See comment [facility] Comment on above: Specimen Source: ELENA TRT - Foot Right - Foot Rt - 604.000 Eosinophils # (Auto) 0.2 10 3/uL 0.0-0.7 [facility] Immature Granulocyte # (Auto) 0.15 10 3/uL High 0.00-0.03 [facility] Platelet mean volume Auto (B ld) [Entitic vol]on 04-08-2024 Platelet mean volume (Bld) [Entitic vol] 9.8 fL 9.5-13.5 [facility] Platelets Auto (Bld) [#/Vol] on 04-08-2024 Platelets (Bld) [#/Vol] 482 10 3/uL High 150-450 [facility] RBC Auto (Bld) [#/Vol]on RBC (Bld) [#/Vol] 4.72 10 6/uL 4.70-6.10 [facility] Serum or plasma anion gap de terminationon 04-08-2024 Anion gap [Moles/Vol] 6.8 mmol/L [facility] ALL CBC WITH AUTO DIFFon BASOPHILS ABSOLUTE AUTO 0.1 [facility] Basophils/100 WBC (Bld) 0.6 % 0.2 - 2.0 % [facility] Eosinophils/100 WBC (Bld) 2.1 % 0.9 - 7.0 % [facility] Erythrocyte distribution width (RBC) [Ratio] 14.0 % 11.0 - 15.0 % [facility] Hematocrit (Bld) [Volume fraction] 41.9 % Low 42.0 - 54.0 % [facility] Hemoglobin (Bld) [Mass/Vol] 13.7 g/dL Low 14.0 - 18.0 g/dL [facility] IMMATURE GRANULOCYTES ABS AUTO 0.46 High [facility] Immature granulocytes/100 WBC (Bld) 2.9 % High 0.0 - 0.5 % [facility] Interpretation and review of laboratory results Abnormal [facility] LYMPHOCYTES ABSOLUTE AUTO 2.3 [facility] Lymphocytes/100 WBC (Bld) 14.7 % Low 20.5 - 60.0 % [facility] MCH (RBC) [Entitic mass] 31.5 pg 25.9 - 34.0 pg [facility] MCHC (RBC) [Mass/Vol] 32.7 g/dL 29.9 - 35.2 g/dL [facility] MCV (RBC) [Entitic vol] 96.3 fL High 80.0 - 94.0 fL [facility] MONOCYTES ABSOLUTE AUTO 1.2 High [facility] Monocytes/100 WBC (Bld) 7.8 % 1.7 - 12.0 % [facility] NEUTROPHILS ABSOLUTE AUTO 11.4 High [facility] Neutrophils/100 WBC (Bld) 71.9 % 43.0 - 75.0 % [facility] Platelet mean volume (Bld) [Entitic vol] 10.2 fL 9.5 - 13.5 fL [facility] TBH EO # 0.3 [facility] PLT 475 High [facility] TB RBC 4.35 Low [facility] WBC 15.8 High [facility] Kris 03-29-2024 L Specimen: [id number] Received: 03/29/242336 Status: [facility] Num: [id number] Spec Type: Surgical Subm Dr: Rc Curtis,DPM, MS Tissues: A Bone Fragments - Other than Path Fracture (R 1 METARSAL BONE) Procedures: HE, Gross/Micro L3, Decalcification Age/ Patient Sex Location Account Attending Physician Tyler Mckinney W 63/M LABELL [id number] Rc Curtis DPM, MS SPEC NUM: [id number] RECD: 03/29/24 STATUS: TAMI COLON NUM: [id number] KATHIE: 03/29/[address]: Rc Curtis DPM, MS ENTERED: 03/29/[address] [facility] [address]: Ekta Heath SPEC TYPE: Surgical DEPT: ALEJANDRO JACOBS ENTERED BY: [id number] RECV BY: [id number] ORDERED: HE, Gross/Micro L3, Decalcification ORDERED: HE, [...] performed supporting the above interpretation -------- Specimen: [id number] Received: 03/29/24 Status: TAMI Darlene Num: [id number] Spec Type: Surgical Subm Dr: Rc Curtis DPM, MS Tissues: A Bone Fragments - Other than Path Fracture (R 1 METARSAL BONE) Procedures: HE, Gross/Micro L3, Decalcification -------- Patient: Tyler Mckinney [id number] (Continued) -------- Specimen: [id number] Received: 03/29/24 (Continued) Signed (signature on file) Genaro Zamora MD 04/05/241707 -------- Specimen: [id number] Received: 03/29/24 Status: TAMI Colon Num: [id number] Spec Type: Surgical Subm Dr: Rc Curtis,DPM, MS Tissues: A Bone Fragments - Other than Path Fracture (R 1 METARSAL BONE) Procedures: DUNCAN, Gross/Micro L3, Decalcification -------- Patient: Tyler Mckinney [id number] (Continued) -------- Specimen: [id number] Received: 03/29/24 (Continued) CPT Codes 46540 80775 -------- -------- Specimen: [id number] Received: 03/29/24 Status: TAMI Colon Num: [id number] Spec Type: Surgical Subm Dr: Rc Curtis,DPShantell, MS Tissues: A Bone Fragments - Other than Path Fracture (R 1 METARSAL BONE) Procedures: DUNCAN, Gross/Micro L3, Decalcification -------- Patient: Tyler Mckinney [id number] (Continued) -------- Signed (signature on file) Genaro Zamora MD 04/05/24 1708 Normal [facility] XR FOOT LT MIN [...] Date: 2022-07-14 23:08 Normal [facility] GLYCOHEMOGLOBIN A1Con 2021 ADA RECOMMENDATION SEE BELOW Normal [facility] Comment on above: Result Comment: ADA RECOMMENDED LIMIT 4.0 - 6.0 ADA THERAPEUTIC TARGET < 7.0 ACTION SUGGESTED > 7.0 Performed By: #### A 1C #### [facility] [address] [address] [address] Jennifer Zamora Glucose [Mass/Vol] 212 mg/dL Normal [facility] Comment on above: Performed By: #### A 1C #### [facility] [address] [address] [address] Jennifer Zamora HbA1c (Bld) [Mass fraction] 9.0 % Critically high 4.5-6.2 [facility] Comment on above: Performed By: #### A 1C #### [facility] [address] [address] [address] Jennifer Zamora PROF 14(COMP METB)on 022 Albumin [Mass/Vol] 3.4 g/dL Normal 3.4-5.0 [facility] Comment on above: Performed By: #### C MP #### [facility] [address] [place] [address] Dr. Jennifre Zamora Albumin/Globulin [Mass ratio] 0.9 {ratio} Normal [facility] Comment on above: Performed By: #### C MP #### [facility] [address] [address] [address] Jennifer Zamora ALP [Catalytic activity/Vol] 108 U/L Normal 46-116 [facility] Comment on above: Performed By: #### C MP #### [facility] [address] [place] [address] Dr. Jennifer Zamora ALT [Catalytic activity/Vol] 35 U/L Normal 16-63 [facility] Comment on above: Performed By: #### C MP #### [facility] [address] [place] [address] Dr. Jennifer Zamora Anion gap [Moles/Vol] 7.0 mmol/L Normal [facility] Comment on above: Performed By: #### C MP #### [facility] [address] [place] [address] Dr. Jennifer Zamora AST [Catalytic activity/Vol] 11 U/L Critically low 15-37 [facility] Comment on above: Performed By: #### C MP #### [facility] [address] [place] [address] Dr. Jennifer Zamora Bilirubin [Mass/Vol] 0.7 mg/dL Normal 0.2-1.0 [facility] Comment on above: Performed By: #### C MP #### [facility] [address] [place] [address] Dr. Jennifer Zamora Calcium [Mass/Vol] 8.9 mg/dL Normal 8.5-10.1 [facility] Comment on above: Performed By: #### C MP #### [facility] [address] [place] [address] Dr. Jennifer Zamora Chloride [Moles/Vol] 100 mmol/L Normal 98-107 [facility] Comment on above: Performed By: #### C MP #### [facility] [address] [address] [address] Jennifer Zamora CO2 [Moles/Vol] 32.5 mmol/L Critically high 21.0-32.0 [facility] Comment on above: Performed By: #### C MP #### [facility] [address] [address] [address] Jennifer Zamora Creatinine [Mass/Vol] 1.05 mg/dL Normal 0.70-1.30 [facility] Comment on above: Performed By: #### C MP #### [facility] [address] [address] [address] Jennifer Zamora EGFR-AF FIJIAN >60 Normal >=60 [facility] Comment on above: Performed By: #### C MP #### [facility] [address] [place] [address] Dr. Jennifer Zamora EGFR-NON AF FIJIAN >60 Normal >=60 [facility] Comment on above: Performed By: #### C MP #### [facility] [address] [address] [address] Jennifer Zamora Globulin (S) [Mass/Vol] 3.7 g/dL Normal [facility] Comment on above: Performed By: #### C MP #### [facility] [address] [place] [address] Dr. Jennifer Zamora Glucose [Mass/Vol] 175 mg/dL Critically high 74-106 T [facility] Comment on above: Performed By: #### C MP #### [facility] [address] [place] [address] Dr. Jennifer Zamora Potassium [Moles/Vol] 4.5 mmol/L Normal 3.5-5.1 [facility] Comment on above: Performed By: #### C MP #### [facility] [address] [address] [address] Jennifer Zamora Protein [Mass/Vol] 7.1 g/dL Normal 6.4-8.2 [facility] Comment on above: Performed By: #### C MP #### [facility] [address] [address] [address] Jennifer Zamora Sodium [Moles/Vol] 135 mmol/L Critically low 136-145 Th e [facility] Comment on above: Performed By: #### C MP #### [facility] [address] [address] [address] Jennifer Zamora Urea nitrogen [Mass/Vol] 18.0 mg/dL Normal 7.0-18.0 [facility] Comment on above: Performed By: #### C MP #### [facility] [address] [address] [address] Jennifer Zamora Urea nitrogen/Creatinine [Mass ratio] 17.1 mg/mg Normal [facility] Comment on above: Performed By: #### C MP #### [facility] [address] [address] [address] Jennifer Zamora Vital Signs Date Time Vital Sign Value Performing Clinician Faci lity 02-01-2025 14:090400 Body height 180.34 cm Dara Eisenberg APRN Work Phone: [facility] 02-01-2025 14:090400 Body mass index (BMI) [Ratio] 41.7 kg/m2 Dara Eisenberg APRN Work Phone: [facility] 02-01-2025 14:09-0400 Body temperature 96.5 [degF] Dara Eisenberg APRN Work Phone: [facility] 02-01-2025 14:09-0400 Body weight 135.62 kg Dara Eisenberg APRN Work Phone: [facility] 02-01-2025 14:09-0400 Diastolic blood pressure 68 mm[Hg] Dara Eisenberg APRN Work Phone: [facility] 02-01-2025 14:090400 Heart rate 102 /min Dara Eisenberg APRN Work Phone: [facility] 02-01-2025 14:09-0400 SaO2% (BldA) [Mass fraction] 96 % Dara Eisenberg APRN Work Phone: [facility] 02-01-2025 14:09-0400 Systolic blood pressure 114 mm[Hg] Dara Eisenberg APRN Work Phone: [facility] 11-05-2024 10:260400 Body height 180.34 cm [facility] 11-05-2024 10:260400 Body mass index (BMI) [Ratio] 44.7 kg/m2 [facility] 11-05-2024 10:260400 Body weight 145.6 kg [facility] 11-05-2024 10:26040 Diastolic blood pressure 68 mm[Hg] [facility] 11-05-2024 10:260400 Heart rate 98 /min [facility] 11-05-2024 10:0400 Respiratory rate 14 /min [facility] 11-05-2024 10:26-0400 SaO2% (BldA) [Mass fraction] 90 % [facility] 11-05-2024 10:26-0400 Systolic blood pressure 128 mm[Hg] [facility] 05-03-2024 14:14-0400 Body height 180.34 cm ROWDY Eisenberg Work Phone: [facility] 05-03-2024 14:14-0400 Body mass index (BMI) [Ratio] 39.3 kg/m2 LUBE TECHNICIANFauzia Eisenberg Work Phone: [facility] 05-03-2024 14:14-0400 Body temperature 96.9 [degF] ROWDY Eisenberg Work Phone: [facility] 05-03-2024 14:14-0400 Body weight 128 kg ROWDY Eisenberg Work Phone: [facility] 05-03-2024 14:14-0400 Diastolic blood pressure 86 mm[Hg] ROWDY Eisenberg Work Phone: [facility] 05-03-2024 14:14-0400 Heart rate 108 /min LUBE TECHNICIANFauzia Diamond Faina Work Phone: [facility] 05-03-2024 14:14-0400 SaO2% (BldA) [Mass fraction] 92 % LUBE TECHNICIANFauzia Diamond Faina Work Phone: [facility] 05-03-2024 14:14-0400 Systolic blood pressure 142 mm[Hg] LUBE TECHNICIANFauzia Diamond Faina Work Phone: [facility] 04-05-2024 13:44-0400 Body height 180.34 cm DPM Rc Curtis Work Phone: [facility] 04-05-2024 13:44-0400 Body mass index (BMI) [Ratio] 39.6 kg/m2 DPM Rc Curtis Work Phone: [facility] 04-05-2024 13:44-0400 Body temperature 97.4 [degF] DPM Rc Curtis Work Phone: [facility] 04-05-2024 13:44-0400 Body weight 128.82 kg DPM Rc Curtis Work Phone: [facility] 04-05-2024 13:44-0400 Diastolic blood pressure 70 mm[Hg] DPM Rc Curtis Work Phone: [facility] 04-05-2024 13:44-0400 Heart rate 61 /min DPM Rc Curtis Work Phone: [facility] 04-05-2024 13:44-0400 SaO2% (BldA) [Mass fraction] 87 % DPM Rc Curtis Work Phone: [facility] 04-05-2024 13:44-0400 Systolic blood pressure 134 mm[Hg] DPShantell Curtis Work Phone: [facility] Encounters Encounter Date Encounter Type Care Provider Facility Start: 02-15-2025 ambulatory Helen Justi [facility] [facility] Start: 02-01-2025 End: 02-01-2025 ambulatory Dara Eisenberg APRN Work Phone: [facility] Work Phone: Start: 02-01-2025 End: 02-01-2025 Patient encounter procedure Dara Eisenberg APRN [facility] Work Phone: Start: 01-27-2025 Non-patient / Non-visit Angelic Gen [facility] Work Phone: Start: 01-24-2025 End: 01-26-2025 Evaluation and management of inpatient Ghassan Zepeda Noahkinsey [facility] Start: 01-24-2025 Emergency department patient visit Manuel Fletcher Facility[facility] Start: 11-05-2024 End: 11-05-2024 ambulatory [facility] Work Phone: Start: 11-05-2024 End: 11-05-2024 Patient encounter procedure [facility] Work Phone: Start: 08-29-2024 Evaluation and management of inpatient MERRILL SAFI [facility] Start: 08-26-2024 Evaluation and management of inpatient BILL HORANI [facility] Start: 08-24-2024 Evaluation and management of inpatient PALOMO CADENCE [facility] Start: 08-24-2024 Evaluation and management of inpatient PALOMO CADENCE [facility] Start: 08-21-2024 [facility]: [facility] Start: 08-20-2024 Evaluation and management of inpatient RUDY [facility] Start: 08-20-2024 Evaluation and management of inpatient RUDY [facility] Start: 08-19-2024 Evaluation and management of inpatient RUDY [facility] Start: 08-17-2024 Evaluation and management of inpatient RUDY [facility] Start: 08-16-2024 Evaluation and management of inpatient RUDY [facility] Start: 08-16-2024 Evaluation and management of inpatient RUDY [facility] Start: 08-15-2024 Evaluation and management of inpatient HUGO PRAJAPATI [facility] Start: 08-15-2024 End: 09-09-2024 Evaluation and management of inpatient SHAIKH MONO [facility] Start: 08-15-2024 Non-patient / Non-visit [facility] Work Phone: Start: 08-14-2024 Non-patient / Non-visit [facility] Work Phone: Start: 08-10-2024 End: 08-12-2024 Clinisync Result Encounter Shaikh Mono JARRETT Work Phone: [facility] Unsolicited Start: 08-10-2024 End: 08-12-2024 Clinisync Result Encounter Shaikh Mono JARRETT Work Phone: [facility] Department Unsolicited Start: 05-03-2024 End: 05-03-2024 ambulatory ROWDY Eisenberg Work Phone: [facility] Work Phone: Start: 05-03-2024 End: 05-03-2024 Patient encounter procedure ROWDY Eisenberg Work Phone: [facility] Work Phone: Start: 04-12-2024 End: 04-12-2024 ambulatory ROWDY Eisenberg Work Phone: [facility] Work Phone: Start: 04-12-2024 End: 04-12-2024 Patient encounter procedure ROWDY Eisenberg Work Phone: [facility] Work Phone: Start: 04-08-2024 End: 04-08-2024 ambulatory LUBE TECHNICIANFauzia Diamond Faina Work Phone: [facility] Work Phone: Start: 04-08-2024 End: 04-08-2024 Departed Referred ROWDY Diamond Faina Work Phone: [facility] Start: 04-08-2024 Non-patient / Non-visit LUBE TECHNICIANFauzia Diamond Faina Work Phone: [facility] Work Phone: Start: 04-05-2024 End: 04-05-2024 Clinisync Result Encounter Shaikh Mono JARRETT Work Phone: [facility] External Department Unsolicited Start: 04-05-2024 End: 04-05-2024 Clinisync Result Encounter Shaikh Mono JARRETT Work Phone: [facility] External Department Unsolicited Start: 04-05-2024 End: 04-05-2024 ambulatory DPM Rc Curtis Work Phone: [facility] Work Phone: Start: 04-05-2024 End: 04-05-2024 Patient encounter procedure DPM Rc Curtis Work Phone: [facility] Work Phone: Start: 03-29-2024 End: 03-29-2024 ambulatory [facility] Work Phone: Start: 03-29-2024 End: 03-29-2024 Departed Referred DPM Rc Curtis Work Phone: [facility] Start: 01-26-2024 Non-patient / Non-visit DPM Rc Curtis Work Phone: [facility] Work Phone: Start: 07-14-2022 End: 07-15-[address] EDELMIRA SANTILLAN Facility:[facility]1 Start: 05-13-2022 End: 05-14-[address] MADELEINE MARCELINO Facility:[facility] Procedures Date Procedure Procedure Detail Performing Clinician Start: 08-10-2024 Bacteria identified in Urine by Culture Shaikh Mono JARRETT Work Phone: Start: 04-08-2024 Acid Fast Smear LUBE TECHNICIAN Elmer Eisenberg Work Phone: Start: 04-08-2024 AFB [...] 04-08-2024 Acid Fast Culture Acid Fast Culture [facility] Payers Date Payer Category Payer Private Health Insurance [id number] 2024 Self-pay 2024 Medicare [id number] 1959 Self-pay [id number] 1961 Unknown [id number] 1959 Unknown [id number] 1958 Unknown [id number] .593 1958 Unknown [id number] 2.16.840.1.790396.3.579.2 .593 1958 Unknown [id number] 2.16.840.1.433162.3.579.2 .727 1958 Unknown [id number] 2.16.840.1.972299.3.579.2 .727 1958 Unknown [id number] 2.16.840.1.005390.3.579.2 .727 1958 Unknown [id number] 2.16.840.1.740107.3.579.2 .727 1958 Unknown [id number] 2.16.840.1.038710.3.579.2 .72 1958 Unknown [id number] 2.16.840.1.087778.3.579.2 .72 1958 Unknown [id number] 2.16.840.1.023107.3.579.2 .72 1958 Unknown [id number] 2.16.840.1.066323.3.579.2 .72 1958 Unknown [id number] 2.16.840.1.060113.3.579.2 .727 Medicare [employer] [employer] [id number] Private Health Insurance [facility] [id number] Unknown [id number] [id number] .531 Unknown Regular Insurance [id number] Social History Date Type Detail Facility Tobacco smoking status [facility] Unknown if ever smoked [facility] Work Phone: Start: 1960 Sex Assigned At Male [facility] Start: 04-05-2024 Tobacco smoking status NHIS Smoker (finding) [facility] Tobacco smoking status [facility] Tobacco smoking consumption unknown [facility] Start: 1960 Sex assigned at Not on file [facility] Gender identity Not on file [facility] Health are Start: 11-05-2024 Sex Male (finding) [facility] Start: 04-05-2024 Tobacco smoking status ALIS Smokes tobacco daily (finding) [facility] Medical Equipment Procedure Code Equipment Code [...] Locations R1: This test was performed at: [facility], [address] [place] [address], [facility] , , [facility] Comment on above: Performed By: #### [id number] #### [facility] [address] [place] [id number] 01-31-2025 Note Microbiology PROCEDURE: Blood Culture Charcoal [...] Locations R1: This test was performed at: [facility], [address] [place] [address], [id number]- , [place], [facility] Comment on above: Performed By: #### 1 [id number] #### [facility] [address] [place] [id number] 01-26-2025 Note Patient Education - Text Atrial [...] signals of the heart. ??? An ambulatory media monitor to record your heart's activity for [...] signs of a (more content not included)... [facility] 01-26-2025 Note Discharge Summary Admission and Discharge [...] Insulin dependent type 2 diabetes mellitus, 01/24/2025 senior care (current) use of insulin, 01/24/2025 Medical problem [...] regimen. Patient was insistent on trying an [id number]-akb-ckxgdnn supplement that he stated would cure diabetes [...] his wounds and recommended continued follow-up with [place] where he receives care. Patient successfully passed a voiding trial and was voiding easily after removal of Brunson. Creatinine had improved from 1.4-0.8 on discharge. Medically stable for discharge home on 01/26/2025. Follow-up PCP in 7 to 10 days Continued care at [place] wound [facility] Referral sent to Dr. Rosen in [place] for endocrinology follow-up for better glucose control. Discussed this with patient and he was agreeable. Follow-up with [facility] anticoagulation clinic Medication changes Continue metoprolol Continue [...] Completed -- 01/24/25 20:11:27 EDT Consult to Water Filter Cleaner (Water Filter Cleaner Consult) - Ordered -- 01/24/25 20:22:00 EDT, [...] & normal b (more content not included)... [facility] Comment on above: Result Comment: Elec tronically [...] signals of the heart. ??? An ambulatory media monitor to record your heart's activity for [...] signs of a (more content not included)... [facility] 01-26-2025 Note Progress Note - Matt devi [...] Plan; TBD Please contact Pharmacy at ext. [phone] if there are any questions. [facility] 01-25-2025 Note Interdisciplinary No te - OT Pt is seen for OT evaluation. AMPA score: 16/24. Pt is agreeable only to sitting EOB, no further transfers or mobility and becomes very agitated due to BLE pain. Pt is below functional baseline for ADL performance. OT to follow for treatment. Recommending HH vs SNF at this time pending progress with treatment. [facility] 01-25-2025 Note Progress Note-Physic janae Assessment/Plan 01/25 [...] Orders Initial Hospital Care/Day Moderate 55 Minutes 52080 Sbsq Hospital Care/Day Moderate 35 Minutes 22772 2. Cellulitis of leg (L03.119: Cellulitis of [...] Monitoring on telemetry. Patient noncompliant with anticoagulation. [id number] score is 4. Reports that Eliquis dose [...] despite clear documentation from previous admission in [place] in August 2024. Reports that he stopped taking all of his diabetes medications. 8. Insulin dependent type 2 diabetes mellitus (E11.9: Type 2 diabetes mellitus without complications) A1c: 12.6 BGT ACHS with sliding scale insulin as needed Lantus 30 units nightly at home. Patient noncompliant. Tolerated 20units QHS 01/24, uptitrate to 30 units today. Goal glucose will be less than 180. salvage determiner (current) use of insulin (Z79.4: salvage determiner (current) use of insulin) Orders: acetaminophen, 975 [...] Capillary Glucose POC Cardiac Monitoring Consult to Water Filter Cleaner Creatine Kinase (more content not included)... [facility] Comment on above: Result Comment: Elec tronically [...] list: All Problems Smoker / SNOMED CT 243488884 / Confirmed Added secondary to documentation in Social History. Tobacco use / SNOMED CT 3290060832 / Confirmed, Active Problems (2) Smoker Tobacco [...] an outpatient with the wound center in [place]. [facility] Comment on above: Result Comment: Elec tronically Signed By: Linda GONZALEZ, Sina Cruz\.br\Date and Time Signed: 01/25/25 12:56 EDT 01-25-2025 Note Interdisciplinary No te - PT PT Evaluation done this date. Pt. with on AM-PAC this date. He requires supervision to CGAx1 with all activity. Uses w/c and FWW at baseline. Recommend home with home health PT. [facility] 01-25-2025 Note Progress Note - Phar shandra [...] Plan; TBD Please contact Pharmacy at ext. [phone] if there are any questions. [facility] 01-24-2025 Note History and Physical Basic Information [...] would be 75 kg. Given 2 L. [place] sepsis bolus will be 2.25 L, ever, [...] specifically. He follows with Dr. 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 He denies ever seeing vascular surgery. He follows with [facility]. Stated that he has not [...] Normal alignment. Ext (more content not included)... [facility] Comment on above: Result Comment: Elec tronically [...] at home: Medicines ??? Take and use bbqz-els-zcjcgkx and prescription medicines and creams only as [...] limbs and wais (more content not included)... [facility] 01-24-2025 Note Progress Note-Nurse tourniquerts removed by puneet [facility] 01-24-2025 Note Progress Note - Matt devi [...] Plan; TBD Please contact Pharmacy at ext. [phone] if there are any questions. Spoke with Dr. Ding - he is ordering a lovenox bridge [facility] 01-24-2025 Note Progress Note-Nurse derrell stopped after 4 minutes for blood cultures that are new order. puneet informed. [facility] 01-24-2025 Note Progress Note-Nurse pt reportedly wears 5 lpm at ho me. d8id not say before. no saturating properly on at home O2 [facility] 11-05-2024 Evaluation note Diagnosis Onset Date Resolution [...] Venous insufficiency (chronic) (peripheral) acute October 10:18am [facility] Work Phone: 1(994) 442-470702-20-2025 [facility]-2025 [facility] 09-07-2024 NoteDISCHARGE PLANNING UPDATE Patient now agreeable to SNF placement. Insurance authorization submitted for [facility] in [place]. Awaiting insurance decision.[facility]02[facility]18[facility]-18-2025 [facility]02-18-2025 [facility] 09-07-2024 Note[facility]02-18-2025 Note[facility]02-17-2025 [facility] 09-06-2024 Note[facility]-17-2025 [facility] 09-05-2024 [facility]-16-2025 [facility]-15-2025 [facility] 09-04-2024 [facility]-15-2025 [facility]-14-2025 [facility] 09-03-2024 [facility]-14-2025 [facility]-13-2025 [facility] 09-02-2024 [facility]-13-2025 [facility]-13-2025 [facility] 09-01-2024 NoteDISCHARGE PLANNING UPDATE [facility] ([place], [place]) is [facility]. Per their admissions team, they are submitting to insurance for authorization today, 09/01.[facility] 09-01-2024 [facility]02-12-2025 [facility]02[facility]11-2025 [facility] 08-31-2024 NoteK[facility]02-11-2025 NoteK[facility]02-11-2025 NoteK[facility] 08-30-2024 NoteK[facility]02-10-2025 NoteK[facility]02-10-2025 NoteK[facility] 08-30-2024 [facility]-09-2025 [facility]-08-2025 [facility] 08-28-2024 NoteK[facility]02-08-2025 NoteK[facility]02-07-2025 [facility] 08-27-2024 NoteK[facility]02-06-2025 [facility]-06-2025 [facility] 08-26-2024 [facility]-06-2025 [facility]-05-2025 [facility] 08-25-2024 [facility]-05-2025 [facility]-05-2025 [facility] 08-24-2024 [facility]-04-2025 [facility]-04-2025 [facility] 08-24-2024 NotePatient is off unit for testing at this time.[facility]02-04-2025 [facility]02-04-2025 Note [facility]02-04-2025 [facility]-04-2025 [facility]02-04-2025 Note [facility]02-03-2025 [facility]02-03-2025 NoteK[facility]02-02-2025 Note [facility]02-01-2025 NoteK[facility]02-01-2025 NoteK[facility]01-31-2025 Note [facility]01-31-2025 NoteK[facility]01-30-2025 [facility]01-29-2025 Note [facility]01-28-2025 [facility]01-28-2025 [facility]01-27-2025 Note [facility]01-27-2025 [facility]01-27-2025 [facility]UnK[facility] CampusEvaluation noteNo assessment information availableTrumbull Memorial Hospital Work Phone: Evaluation note* Diagnosis Onset Date Resolution Status Type 2 diabetes mellitus acu [facility] Work Phone: Evaluation note* Diagnosis Onset Date Resolution Status COPD (chronic obstructive pulmonary disease) acute Hypertension acute MRSA cellulitis of right foot acute Nicotine dependence acute Non-compliance acute Oxygen dependent acute Type 2 diabetes mellitus acu te Ulcer of right foot due to type 2 diabetes mellitus acute [facility] Work Phone: Evaluation note* Diagnosis Onset Date Resolution Status COPD (chronic obstructive pulmonary disease) acute Hypertension acute MRSA cellulitis of right foot acute Nicotine dependence acute Non-compliance acute Oxygen dependent acute Type 2 diabetes mellitus acu te Ulcer of right foot due to type 2 diabetes mellitus acute Acute osteomyelitis of foot acute [facility] Work Phone: Evaluation note* Diagnosis Onset Date Resolution Status COPD (chronic obstructive pulmonary disease) acute Hypertension acute MRSA cellulitis of right foot acute Nicotine dependence acute Non-compliance acute Oxygen dependent acute Type 2 diabetes mellitus acu te Ulcer of right foot due to type 2 diabetes mellitus acute Acute osteomyelitis of foot acute Low back pain acute [facility] Work Phone: Evaluation note* Diagnosis Onset [...] diabetes mellitus acute November 05, 2024 10:18am [facility] Work Phone: Reason for referral (narrative)No reason for referral information availableAdams County Hospital Work Phone: Summary Purpose Family History No Family History Records Found Relationship Condition Age at Onset Recorded Date/T mecca mother Malignant neoplasm of cervix Unknown Advance Directives No Advanced Directives Records Found Advance Directive Response Recorded Date/ Time Advance Directives No March 2:40pm Chief Complaint and Reason for Visit Chief Complaint Admit Date F/U long term stay/Medications-HIGH R ISK November 05, 2024 10:18am Amb Documentation January 27, 2025 8:33 am [facility] [place] February 01, 2025 2:06 pm [...] 2024 10:18am Chief Complaint Admit Date F/U long term stay/Medications-HIGH R ISK November 05, 2024 10:18am [...] and content) DATE CREATED AUTHOR 07/19/2022 [facility] DATE CREATED AUTHOR AUTHOR'S ORGANIZ ATION 04/20/2024 [facility] DATE CREATED AUTHOR AUTHOR'S ORGANIZ ATION 10/20/2024 [facility] DATE CREATED AUTHOR AUTHOR'S ORGANIZ ATION 01/28/2025 [facility] DATE CREATED AUTHOR AUTHOR'S ORGANIZ ATION 01/29/2025 [facility] DATE CREATED AUTHOR AUTHOR'S ORGANIZ ATION 01/30/2025 [facility] DATE CREATED AUTHOR AUTHOR'S ORGANIZ ATION 02/04/2025 [facility] DATE CREATED AUTHOR AUTHOR'S ORGANIZ ATION 02/17/2025 Atilio Hernández [facility] Care Teams (unrecognized sec tion and content) Team Status: Active Member Role Status Dates Magnolia Chavez LPN Attending Provider Active St art: January 26, 2024 Team Status: Inactive Member Role Status Dates Rc Curtis DPM MS Attending Provider Active Start: March 29, 2024 End: March 29, 2024 Team Status: Active Member Role Status Dates Dara Eisenberg APRN HOME HEALTH ADMINISTRATOR-C Primary Care Provider Active Team Status: Inactive Member Role Status Dates Dara Eisenberg APRN HOME HEALTH ADMINISTRATOR-C Primary Care Provider, Attending Provider Active Start: April 05, 2024 End: April 05, 2024 Team Status: Active Member Role Status Dates Dara Eisenberg APRN HOME HEALTH ADMINISTRATOR-C Primary Care Provider, Attending Provider Active Start: April 08, 2024 Team Status: Inactive Member Role Status Dates Dara Eisenberg APRN HOME HEALTH ADMINISTRATOR-C Primary Care Provider Active Start: March 212023 End: April 08, 2024 Rc Curtis DPM MS Attending Provider Active Start: April 08, 2024 End: April 08, 2024 Team Status: Inactive Member Role Status Dates Dara Eisenberg APRN HOME HEALTH ADMINISTRATOR-C Primary Care Provider Active Start: March 222023 End: April 12, 2024 Navdeep Trujillo MD Attending Provider Active Sta rt: April 12, 2024 End: April 12, 2024 Team Status: Inactive Member Role Status Dates Dara Eisenberg APRN HOME HEALTH ADMINISTRATOR-C Primary Care Provider, Attending Provider Active Start: May 03, 2024 End: May 03, 2024 Team Status: Active Member Role Status Dates Dara Eisenberg APRN HOME HEALTH ADMINISTRATOR-C Primary Care Provider Active Start: July Shaikh Mono MD Attending Provider Active Sta rt: August 14, 2024 Team Status: Active Member Role Status Dates Dara Eisenberg APRN HOME HEALTH ADMINISTRATOR-C Primary Care Provider Active Start: July Shaikh Mono MD Attending Provider Active Sta rt: August 15, 2024 Team Status: Inactive Member Role Status Dates Dara Eisenberg APRN HOME HEALTH ADMINISTRATOR-C Primary Care Provider, Attending Provider Active Start: November 05, 2024 End: November 05, 2024 Team Status: Inactive Member Role Status Dates Dara Eisenberg APRN HOME HEALTH ADMINISTRATOR-C Primary Care Provider Active Start: November 05, 2024 End: November 05, 2024 Dara Eisenberg APRN HOME HEALTH ADMINISTRATOR-Bro Attending Provider Act mook Start: November 05, 2024 End: November 05, 2024 Team Status: Active Member Role Status Dates Dara Eisenberg APRN HOME HEALTH ADMINISTRATOR-C Primary Care Provider Active Start: January 27, 2025 Angelic Blevins CMA Attending Provider Active Start: January 27, 2025 Team Status: Inactive Member Role Status Dates Dara Eisenberg APRN HOME HEALTH ADMINISTRATOR-C Primary Care Provider Active Start: February 01, 2025 End: February 01, 2025 Dara Eisenberg APRN HOME HEALTH ADMINISTRATOR-C Attending Provider Act mook Start: February 01, [...] BE BASED ON THE PRIMARY CLINICAL RECORDS. [facility] [employer] provides no warranty or guarantee of the accuracy or completeness of information in this document.
== END 2025-03-14 13:01 | disposition home or self-care (01) ==
LOC: WC 14:24
PROVIDERS: PCP Nurse Practitioner Family; Visit Provider Physician Assistant
DX: I87.313 Chronic venous hypertension (idiopathic) with ulcer of bilateral lower extremity (principal); L97.822 Non-pressure chronic ulcer of other part of left lower leg with fat layer exposed; L97.812 Non-pressure chronic ulcer of other part of right lower leg with fat layer exposed
CPT/HCPCS: 29581

== ENCOUNTER 2025-03-17 14:34 | Outpatient (OUT) | payer MEDICARE, SELFPAY ==
--- OUTSIDE RECORDS SUMMARY | 2025-03-17 15:13 | XMS_ITS | CCD ---
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 [Mass/Vol] 33.6 g/dL Normal 31.4-36.0 [facility] Comment on above: Performed By: #### 2 [id number] #### [facility] [address] [place] [address] MCV (RBC) [Entitic vol] 91.8 fL Normal 80.0-100.0 [facility] Comment on above: Performed By: #### 2 [id number] #### [facility] [address] [place] [address] Sawyer Absolute 1.3 E9/L High 0.2-1.0 [facility] Comment on above: Performed By: #### 2 [id number] #### [facility] [address] [place] [address] Monocytes/100 WBC (Bld) 7.6 % Normal 4.0-14.0 [facility] Comment on above: Performed By: #### 2 [id number] #### [facility] [address] [place] [address] Neutro Absolute 14.8 E9/L High 2.0-7.5 [facility] Comment on above: Performed By: #### 2 [id number] #### [facility] [address] [place] [address] Neutro Auto 85.3 % High 36.0-75.0 [facility] Comment on above: Performed By: #### 2 [id number] #### [facility] [address] [place] [address] Platelet 269.0 E9/L Normal 150.0-500.0 [facility] Comment on above: Performed By: #### 2 [id number] #### [facility] [address] [place] [address] Platelet mean volume (Bld) [Entitic vol] 8.7 fL Normal 6.4-10.8 [facility] Comment on above: Performed By: #### 2 701375 #### [facility] [address] [place] [address] RBC 4.8 E12/L Normal 4.3-5.9 [facility] Comment on above: Performed By: #### 2 625172 #### [facility] [address] [place] [address] WBC 17.4 E9/L High 4.0-11.0 [facility] Comment on above: Performed By: #### 2 [id number] #### [facility] [address] [place] [address] Capillary Glucose POCon 07-0 Glucose [Mass/Vol] 490 mg/dL Abnormal 55-99 [facility] Comment on above: Result Comment: Cindy calle RN/MD Performed By: #### 2 [id number] #### [facility] [address] [place] [address] ED Clinical Summaryon 2024 ED Clinical Summary ED Clinical Summary [address] [address] ED Clinical Summary Person Information [facility]: [facility] Age: 64 Years : 1960 Sex: Male Language: Z[place]ian PCP: DARA EISENBERG CNP Marital Status: Single Phone: [phone] Visit Id: Visit Reason: Medical problem - major; VERICOSE VEIN TOURNIQUET Speciality: Acuity: 2 Enc Type: Inpatient Med Service: Medical Arrival: 01/24/2025 11:29:33 Discharge: LOS: 000 07:25 Checkin: 01/24/2025 11:29:33 Checkout: 01/24/2025 18:54:25 Dispo Type: Admitted as IP to this [facility] EVENTS: Event Name Event Status Request [...] 18:23:37 Patient Care Request 01/24/2025 18:23:37 ADDRESS: [address] [place] [address] PHYS DOC NOTES: MEDICAL INFORMATION: Prescriptions Given: New Medications [id number], [address] [place], [place] [id number], [phone] doxycycline (doxycycline hyclate 100 mg Cap) 1 Capsules By Mouth 2 times a day for 7 Days. Refills: 0. PATIENT EDUCATION INFORMATION: Instructions: Cellulitis, Adult, Ciqd-um-Wnjk; Bleeding Varicose Veins Follow up: With: Address: When: DARA EISENBERG [address], [address] [place] [id number] [phone] Business (1) In 3 days 01/27/2025 Comments: Call Dr for diagnosis based follow up DIAGNOSIS: 1:Severe sepsis; 2:Cellulitis of leg; 3:KRISTINE (acute kidney injury); 4:Atrial fibrillation with RVR; 5: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; 6:Hyponatremia; 7:Noncompliance with medications Normal [facility] ED Note-Physicianon 01-25-20 ED Note-Physician [...] of the patient. Sepsis Data [x] Patient's Onia body weight was considered in sepsis fluid [...] nonco (more content not included)... Normal [facility] Comment on above: Result Comment: Elec tronically Signed By: Puneet Jung PA-C.br\Date and Time Signed: 01/24/25 13:02 EDT\.br\Electronically Co-Signed By: Puneet Jung PA-C.br\Date and Time Co-Signed: 01/24/25 15:25 EDT\.br\Electronically Co-Signed By: Puneet Jung PA-C.br\Date and Time Co-Signed: 01/24/25 16:27 EDT\.br\Electronically Co-Signed By: Justine Otto, Manuel Mathis\.br\Date and Time Co-Signed: 01/24/25 18:08 EDT ED Patient Summaryon 025 ED Patient Summary ED Patient Summary [place] [address] Patient Discharge Instructions Person Information Name: TYLER MCKINNEY Age: 64 Years Arrival Date: 01/24/2025 11:29:33 Discharge Diagnosis: 1:Severe sepsis; 2:Cellulitis of leg; 3:KRISTINE (acute kidney injury); 4:Atrial fibrillation with RVR; 5: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; 6:Hyponatremia; 7:Noncompliance with medications Primary Care Physician: DARA EISENBERG CNP Provider Information Primary Provider: Maunel Fletcher M.D. Advanced Human Resource Officer:Puneet Jung PA-C The exam and treatment you received in the Emergency Department were for an urgent problem and are not intended as complete care. It is important that you follow up with a doctor, nurse practitioner, or physician???s curriculum assistant for ongoing care. If your symptoms [...] Instructions: With: Address: When: DARA EISENBERG [address] [facility], [facility] [[email or web address] [place] [phone] Business (1) In 3 days 01/27/2025 Comments: Call Dr for diagnosis based follow up In the event that this physician does not participate in your insurance network, please consult with your insurance company to find a nearby participating provider. Patient Education Materials: Cellulitis, Adult, Owwf-jt-Mosu; Bleeding Varicose Veins A MESSAGE TO ALL PATIENTS REGARDING OPIOIDS PRESCRIPTION OPIOIDS: WHAT YOU NEED TO KNOW Prescription opioids can be used to help relieve deggfqij-js-qzbepk pain and are often prescribed following a [...] toilet, f (more content not included)... Normal [facility] Lactic Acidon 01-24-2025 Lactic Acid Lvl 1.0 mmol/L Normal 0.5-2.2 [facility] Comment on above: Performed By: #### 2 [id number] #### [facility] [address] [place] [address] PT & PTTon 01-24-2025 INR Coag (PPP) [Relative time] 1.03 {INR} Invalid Interpretation Code [facility] Comment on above: Result Comment: INR results are specifically intended to assess patients stabilized on long-term Anticoagulation therapy suggested INR???s ???Less Intensive Anticoagulation??? 2.0 ??? 3.0 Conventional Range 3.0 ??? 4.5 Performed By: #### 1 [id number] #### [facility] [address] [place] [address] PT 11.5 second(s) Normal 9.4-12.5 [facility] Comment on above: Result Comment: [...] were obtained from a study by Shimon Lowell, et al. prepared from 1437 samples obtained at 7 different centers using the same coagulation reagent and instrumentation as [facility]. Currently there are no coagulation studies available worldwide for children to 14 days, and no normal ranges. Performed By: #### 1 [id number] #### [facility] [address] [place] [address] PTT 27.7 second(s) Normal 25.1-36.5 [facility] Comment on above: Result Comment: [...] the same coagulation reagent and instrumentation as [facility]. Currently there are no coagulation studies available worldwide for children to 14 days, and no normal ranges. Heparin therapeutic range (represented by Anti-Factor Xa activity of 0.2 - 0.4 U/mL) corresponds to PTT of 56.6 - 109.0 sec. Performed By: #### 1 [id number] #### [facility] [address] [place] [address] Pre-Arrival Noteon Pre-Arrival Note Pre-Arrival Note Pre-Arrival Summary Name: , Current Date: 01/24/2025 11:30:22 EDT Gender: Date of : Age: Pre-Arrival Type: EMS ETA: 01/24/2025 11:50:00 EDT Primary Care Physician: Presenting Problem: varicose vein tourniquet Pre-Arrival User: [address] Referring Source: Location: [place] Completion Date/Time: 01/24/2025 11:20:00 [facility] Emergency Department Pre-Hospital Report Form Vital Signs: Pre-Hospital Report: Treatment in Route: Response to Treatment: Misc. Issues: Normal [facility] Procalcitoninon 01-24-2025 Procalcitonin .09 ng/mL Normal .00-.50 [facility] Comment on above: Result Comment: <0.5 ng/mL [...] to 24 hours. Performed By: #### 2 [id number] #### [facility] [address] [place] [address] Troponin 0 Hr.on 01-24-2025 Troponin HS 4.60 pg/mL Low 15.90-38.40 [facility] Comment on above: Result Comment: The 95% CI (Confidence Interval) PPV (Positive Predictive Value) for myocardial infarction in females is 38 pg/mL, in males 51 pg/mL. The results should be used in conjunction with clinical conditions of myocardial infarction. (Access High Sensitivity Troponin I Instructions For Use, Charli Hayden, February 2018) Performed By: #### 1 [id number] #### [facility] [address] [place] [address] UA with Cult Rflxon 01-25-20 25 Color (U) Light-Yellow Normal Yellow [facility] Comment on above: Result Comment: Micr oscopic readings are only performed on those samples that meet specific criteria set forth by [facility]. Performed By: #### 4 [id number] #### [facility] [address] [place] [id number] Ketones Ql (U) Negative Normal Negative [facility] Comment on above: Performed By: #### 4 [id number] #### [facility] [address] [place] [address] UA Blood 1+ mg/dL Abnormal Negative [facility] Comment on above: Performed By: #### 4 [id number] #### [facility] [address] [place] [address] UA Clarity Clear Normal Clear [facility] Comment on above: Performed By: #### 4 [id number] #### [facility] [address] [place] [address] UA Glucose 4+ mg/dL Abnormal Negative [facility] Comment on above: Performed By: #### 4 [id number] #### [facility] [address] [place] [address] UA Leuk Est Negative Normal Negative [facility] Comment on above: Performed By: #### 4 [id number] #### [facility] [address] [place] [address] UA Mucous Trace Normal Negative [facility] Comment on above: Performed By: #### 4 [id number] #### [facility] [address] [place] [address] UA Nitrite Negative Normal Negative [facility] Comment on above: Performed By: #### 4 [id number] #### [facility] [address] [place] [address] UA pH 5.0 Invalid Interpretation Code 5.0-9.0 [facility] Comment on above: Performed By: #### 4 [id number] #### [facility] [address] [place] [address] UA Protein Negative Normal Negative [facility] Comment on above: Performed By: #### 4 [id number] #### [facility] [address] [place] [address] UA RBC 4-20 Abnormal 0-3 [facility] Comment on above: Performed By: #### 4 [id number] #### [facility] [address] [place] [address] UA Spec Grav 1.020 Invalid Interpretation Code 1.005-1.030 [facility] Comment on above: Performed By: #### 4 [id number] #### [facility] [address] [place] [address] UA Urobilinogen Negative Normal Negative [facility] Comment on above: Performed By: #### 4 [id number] #### [facility] [address] [place] [address] UA WBC 0-5 Normal 0-5 [facility] Comment on above: Performed By: #### 4 [id number] #### [facility] [address] [place] [address] Urobilinogen (U) [Mass/Vol] Negative Normal Negative [facility] Comment on above: Performed By: #### 4 [id number] #### [facility] [address] [place] [address] UA Spec Desc Clean Catch Normal [facility] Comment on above: Performed By: #### 4 [id number] #### [facility] [address] [place] [address] XR Chest 2 Viewson XR Chest 2 [...] Krishna Ray MD Transcribed by: [facility] Technologist: CONTACT PRINTER DRY FILM Normal [facility] eGFRon 01-24-2025 eGFR 55 mL/min/1.73 m2 Low >=59 [facility] Comment on above: Performed By: #### 1 [id number] #### [facility] [address] [place] [address] HbA1c HPLC (Bld) [Mass fract ion]on 11-05-2024 HbA1c (Bld) [Mass fraction] 10.1 % [facility] CBC WITH AUTO DIFFERENTIALon 09-09-2024 Basophils (Bld) [#/Vol] 0.05 10*3/uL Normal 0.00-0.20 [facility] Comment on above: Performed By: #### L [id number] ####[facility] ([facility])[address] [place] [address] Basophils/100 WBC (Bld) 0.6 % Normal 0.0-1.0 [facility] Comment on above: Performed By: #### L [id number] ####[facility] ([facility])[address] [place] [address] Eosinophils (Bld) [#/Vol] 0.43 10*3/uL Normal 0.00-0.50 [facility] Comment on above: Performed By: #### L [id number] ####[facility] ([facility])[address] [place] [address] Eosinophils/100 WBC (Bld) 5.0 % Normal 0.0-6.0 [facility] Comment on above: Performed By: #### L [id number] ####[facility] ([facility])[address] [place] [address] Erythrocyte distribution width (RBC) [Ratio] 15.1 % High 11.5-15.0 [facility] Comment on above: Performed By: #### L [id number] ####[facility] ([facility])[address] [place] [address] ERYTHROCYTE MEAN CORPUSCULAR HEMOGLOBIN CONCENTRATION (G/DL) BY AUTOMATED 31.1 g/dL Low 32.0-35.0 [facility] Comment on above: Performed By: #### L [id number] ####[facility] ([facility])[address] [place] [address] Hematocrit (Bld) [Volume fraction] 48.8 % Normal 39.0-55.0 [facility] Comment on above: Performed By: #### L [id number] ####[facility] ([facility])[address] [place] [address] Hemoglobin (Bld) [Mass/Vol] 15.2 g/dL Normal 13.0-17.0 [facility] Comment on above: Performed By: #### L [id number] ####[facility] ([facility])[address] [place] [address] Immature granulocytes (Bld) [#/Vol] 0.05 10*3/uL Normal 0.00-0.20 [facility] Comment on above: Performed By: #### L [id number] ####[facility] ([facility])[address] [place] [address] Immature granulocytes/100 WBC (Bld) 0.6 % Normal 0.0-1.0 [facility] Comment on above: Performed By: #### L [id number] ####[facility] ([facility])[address] [place] [address] Lymphocytes (Bld) [#/Vol] 1.59 10*3/uL Normal 1.20-4.00 [facility] Comment on above: Performed By: #### L [id number] ####[facility] ([facility])[address] [place] [address] Lymphocytes/100 WBC (Bld) 18.5 % Low 20.0-45.0 [facility] Comment on above: Performed By: #### L [id number] ####[facility] ([facility])[address] [place] [address] MCH (RBC) [Entitic mass] 28.8 pg Normal 27.0-33.0 [facility] Comment on above: Performed By: #### L [id number] ####[facility] ([facility])[address] [place] [address] MCV (RBC) [Entitic vol] 92.6 fL Normal 82.0-98.0 [facility] Comment on above: Performed By: #### L [id number] ####[facility] [place] [address] Monocytes (Bld) [#/Vol] 0.90 10*3/uL Normal 0.10-1.00 [facility] Comment on above: Performed By: #### L [id number] ####[facility] ([facility])[address] [place] [address] Monocytes/100 WBC (Bld) 10.5 % Normal 5.0-12.0 [facility] Comment on above: Performed By: #### L [id number] ####[facility] ([facility])[address] [place] [address] Neutrophils (Bld) [#/Vol] 5.56 10*3/uL Normal 1.60-7.60 [facility] Comment on above: Performed By: #### L [id number] ####[facility] ([facility])[address] [place] [address] Neutrophils/100 WBC (Bld) 64.8 % Normal 40.0-72.0 [facility] Comment on above: Performed By: #### L [id number] ####[facility] ([facility])[address] [place] [address] NRBC (PER 100 WBCS) BY AUTOMATED COUNT 0.0 % Normal 0 [facility] Comment on above: Performed By: #### L [id number] ####[facility] ([facility] [place] [address] PLATELETS (10*3/UL) IN BLOOD AUTOMATED COUNT 208 10*3/uL Normal 150-400 [facility] Comment on above: Performed By: #### L [id number] ####[facility] ([facility])[address] [place] [address] RBC (Bld) [#/Vol] 5.27 10*6/uL Normal 4.20-5.70 [facility] Comment on above: Performed By: #### L [id number] ####[facility] ([facility] [place] [address] WBC (Bld) [#/Vol] 8.58 10*3/uL Normal 4.00-10.60 [facility] Comment on above: Performed By: #### L [id number] ####[facility] ([facility])[address] [place] [address] DSon 09-09-2024 DS [facility] MAGNESIUMon 09-09-2024 Magnesium [Mass/Vol] 1.7 mg/dL Low 1.9-2.7 [facility] Comment on above: Performed By: #### L [id number] ####[facility] ([facility] [place] [address] PHOSPHORUSon 09-09-2024 Magnesium [Mass/Vol] 3.2 mg/dL Normal 2.5-5.0 [facility] Comment on above: Performed By: #### L [id number] ####[facility] ([facility])[address] [place] [address] POCT GLUCOSE METER UNSOLICIT ED RESULTSon 09-09-2024 Glucose [Mass/Vol] 114 mg/dL High 70-105 [facility] Comment on above: Order Comment: Waive d Testing in the ED is performed under the ED CLIA certificate #[id number]. Result Comment: ndub [email or web address] Performed By: #### L [id number] ####[facility] ([facility] [place] [address] 30on 09-08-2024 30 [facility] 30 [facility] CBC WITH AUTO DIFFERENTIALon 09-08-2024 Basophils (Bld) [#/Vol] 0.06 10*3/uL Normal 0.00-0.20 [facility] Comment on above: Performed By: #### L [id number] ####[facility] ([facility] [facility] [place] [address] Basophils/100 WBC (Bld) 0.8 % Normal 0.0-1.0 [facility] Comment on above: Performed By: #### L [id number] ####[facility] ([facility])[address] [place] [address] Eosinophils (Bld) [#/Vol] 0.43 10*3/uL Normal 0.00-0.50 [facility] Comment on above: Performed By: #### L [id number] ####[facility] ([facility])[address] [place] [address] Eosinophils/100 WBC (Bld) 5.5 % Normal 0.0-6.0 [facility] Comment on above: Performed By: #### L [id number] ####[facility] ([facility])[address] [place] [address] Erythrocyte distribution width (RBC) [Ratio] 15.2 % High 11.5-15.0 [facility] Comment on above: Performed By: #### L [id number] ####[facility] [place] [address] ERYTHROCYTE MEAN CORPUSCULAR HEMOGLOBIN CONCENTRATION (G/DL) BY AUTOMATED 30.8 g/dL Low 32.0-35.0 [facility] Comment on above: Performed By: #### L [id number] ####[facility] ([facility])[address] [place] [address] Hematocrit (Bld) [Volume fraction] 45.4 % Normal 39.0-55.0 [facility] Comment on above: Performed By: #### L [id number] ####[facility] ([facility])[address] [place] [address] Hemoglobin (Bld) [Mass/Vol] 14.0 g/dL Normal 13.0-17.0 [facility] Comment on above: Performed By: #### L [id number] ####[facility] ([facility])[address] [place] [address] Immature granulocytes (Bld) [#/Vol] 0.03 10*3/uL Normal 0.00-0.20 [facility] Comment on above: Performed By: #### L [id number] ####[facility] ([facility] [place] [address] Immature granulocytes/100 WBC (Bld) 0.4 % Normal 0.0-1.0 [facility] Comment on above: Performed By: #### L [id number] ####[facility] [place] [address] Lymphocytes (Bld) [#/Vol] 1.82 10*3/uL Normal 1.20-4.00 [facility] Comment on above: Performed By: #### L [id number] ####[facility] ([facility] [place] [address] Lymphocytes/100 WBC (Bld) 23.2 % Normal 20.0-45.0 [facility] Comment on above: Performed By: #### L [id number] ####[facility] ([facility] [place] [address] MCH (RBC) [Entitic mass] 29.1 pg Normal 27.0-33.0 [facility] Comment on above: Performed By: #### L [id number] ####[facility] ([facility] [place] [address] MCV (RBC) [Entitic vol] 94.4 fL Normal 82.0-98.0 [facility] Comment on above: Performed By: #### L [id number] ####[facility] [place] [address] Monocytes (Bld) [#/Vol] 0.88 10*3/uL Normal 0.10-1.00 [facility] Comment on above: Performed By: #### L [id number] ####[facility] [place] [address] Monocytes/100 WBC (Bld) 11.2 % Normal 5.0-12.0 [facility] Comment on above: Performed By: #### L [id number] ####[facility] ([facility])[address] [place] [address] Neutrophils (Bld) [#/Vol] 4.62 10*3/uL Normal 1.60-7.60 [facility] Comment on above: Performed By: #### L [id number] ####[facility] ([facility])[address] [place] [address] Neutrophils/100 WBC (Bld) 58.9 % Normal 40.0-72.0 [facility] Comment on above: Performed By: #### L [id number] ####[facility] ([facility])[address] [place] [address] NRBC (PER 100 WBCS) BY AUTOMATED COUNT 0.0 % Normal 0 [facility] Comment on above: Performed By: #### L [id number] ####[facility] ([facility])[address] [place] [address] PLATELETS (10*3/UL) IN BLOOD AUTOMATED COUNT 231 10*3/uL Normal 150-400 [facility] Comment on above: Performed By: #### L [id number] ####[facility] ([facility])[address] [place] [address] RBC (Bld) [#/Vol] 4.81 10*6/uL Normal 4.20-5.70 [facility] Comment on above: Performed By: #### L [id number] ####[facility] ([facility])[address] [place] [address] WBC (Bld) [#/Vol] 7.84 10*3/uL Normal 4.00-10.60 [facility] Comment on above: Performed By: #### L [id number] ####[facility] ([facility])[address] [place] [address] MAGNESIUMon 09-08-2024 Magnesium [Mass/Vol] 1.6 mg/dL Low 1.9-2.7 [facility] Comment on above: Performed By: #### L [id number] ####[facility] ([facility])[address] [place] [address] NURSNOTEon 09-08-2024 NURSNOTE Normal [facility] PHOSPHORUSon 09-08-2024 Magnesium [Mass/Vol] 3.4 mg/dL Normal 2.5-5.0 [facility] Comment on above: Performed By: #### L [id number] ####[facility] ([facility])[address] [place] [address] POCT GLUCOSE METER UNSOLICIT ED RESULTSon 09-08-2024 Glucose [Mass/Vol] 244 mg/dL High 70-105 [facility] Comment on above: Order Comment: Waive d Testing in the ED is performed under the ED CLIA certificate #[id number]. Result Comment: droc kol Performed By: #### L [id number] ####[facility] ([facility])[address] [place] [address] Glucose [Mass/Vol] 165 mg/dL High 70-105 [facility] Comment on above: Order Comment: Waive d Testing in the ED is performed under the ED CLIA certificate #[id number]. Result Comment: ndub ois3 Performed By: #### L [id number] ####[facility] ([facility])[address] [place] [address] Glucose [Mass/Vol] 110 mg/dL High 70-105 [facility] Comment on above: Order Comment: Waive d Testing in the ED is performed under the ED CLIA certificate #[id number]. Result Comment: ndub ois3 Performed By: #### L [id number] ####[facility] ([facility] [place] [address] Glucose [Mass/Vol] 157 mg/dL High 70-105 [facility] Comment on above: Order Comment: Waive d Testing in the ED is performed under the ED CLIA certificate #[id number]. Result Comment: ndub ois3 Performed By: #### L [id number] ####[facility] ([facility])[address] [place] [address] 30on 09-07-2024 30 Normal [facility] 30 Normal [facility] BASIC METABOLIC PANELon 08-21 Anion gap [Moles/Vol] 9 mmol/L Normal 7-20 [facility] Comment on above: Performed By: #### L [id number] ####[facility] ([facility])[address] [place] [address] Calcium [Mass/Vol] 9.6 mg/dL Normal 8.6-10.3 [facility] Comment on above: Performed By: #### L [id number] ####[facility] ([facility])[address] [place] [address] Chloride [Moles/Vol] 100 mmol/L Normal 98-107 [facility] Comment on above: Performed By: #### L [id number] ####[facility] ([facility])[address] [place] [address] CO2 [Moles/Vol] 32 mmol/L High 21-31 [facility] Comment on above: Performed By: #### L [id number] ####[facility] ([facility])[address] [place] [address] Creatinine [Mass/Vol] 0.78 mg/dL Normal 0.70-1.30 [facility] Comment on above: Performed By: #### L [id number] ####[facility] ([facility])[address] [place] [address] GLOMERULAR FILTRATION RATE ML/MIN/1.73 SQ M.PREDICTED 99.0 mL/min/1.73m*2 Normal >60.[address] [facility] Comment on above: Result Comment: [facility]???s estimated glomerular filtration rate (eGFR) will [...] of individuals. Performed By: #### L [id number] ####[facility] ([facility] [place] [address] Glucose [Mass/Vol] 153 mg/dL High 70-100 [facility] Comment on above: Performed By: #### L [id number] ####[facility] ([facility] [place] [address] Potassium [Moles/Vol] 4.1 mmol/L Normal 3.5-5.1 [facility] Comment on above: Performed By: #### L [id number] ####[facility] ([facility] [place] [address] Sodium [Moles/Vol] 137 mmol/L Normal 136-145 [facility] Comment on above: Performed By: #### L [id number] ####[facility] [place] [address] Urea nitrogen [Mass/Vol] 19 mg/dL Normal 7-25 [facility] Comment on above: Performed By: #### L [id number] ####[facility] ([facility] [place] [address] UREA NITROGEN/CREATININE (MASS RATIO) IN SER/PLAS 24.4 Normal [facility] Comment on above: Performed By: #### L [id number] ####[facility] ([facility] [place] [address] CBC WITH AUTO DIFFERENTIALon 09-07-2024 Basophils (Bld) [#/Vol] 0.06 10*3/uL Normal 0.00-0.20 [facility] Comment on above: Performed By: #### L [id number] ####[facility] [place] [address] Basophils/100 WBC (Bld) 0.8 % Normal 0.0-1.0 [facility] Comment on above: Performed By: #### L [id number] ####[facility] ([facility])[address] [place] [address] Eosinophils (Bld) [#/Vol] 0.49 10*3/uL Normal 0.00-0.50 [facility] Comment on above: Performed By: #### L [id number] ####[facility] ([facility])[address] [place] [address] Eosinophils/100 WBC (Bld) 6.8 % High 0.0-6.0 [facility] Comment on above: Performed By: #### L [id number] ####[facility] [place] [address] Erythrocyte distribution width (RBC) [Ratio] 15.3 % High 11.5-15.0 [facility] Comment on above: Performed By: #### L [id number] ####[facility] ([facility] [place] [address] ERYTHROCYTE MEAN CORPUSCULAR HEMOGLOBIN CONCENTRATION (G/DL) BY AUTOMATED 30.9 g/dL Low 32.0-35.0 [facility] Comment on above: Performed By: #### L [id number] ####[facility] [place] [address] Hematocrit (Bld) [Volume fraction] 45.9 % Normal 39.0-55.0 [facility] Comment on above: Performed By: #### L [id number] ####[facility] ([facility])[address] [place] [address] Hemoglobin (Bld) [Mass/Vol] 14.2 g/dL Normal 13.0-17.0 [facility] Comment on above: Performed By: #### L [id number] ####[facility] ([facility])[address] [place] [address] Immature granulocytes (Bld) [#/Vol] 0.04 10*3/uL Normal 0.00-0.20 [facility] Comment on above: Performed By: #### L [id number] ####[facility] ([facility])[address] [place] [address] Immature granulocytes/100 WBC (Bld) 0.6 % Normal 0.0-1.0 [facility] Comment on above: Performed By: #### L [id number] ####[facility] ([facility])[address] [place] [address] Lymphocytes (Bld) [#/Vol] 1.82 10*3/uL Normal 1.20-4.00 [facility] Comment on above: Performed By: #### L [id number] ####[facility] ([facility])[address] [place] [address] Lymphocytes/100 WBC (Bld) 25.3 % Normal 20.0-45.0 [facility] Comment on above: Performed By: #### L [id number] ####[facility] ([facility])[address] [place] [address] MCH (RBC) [Entitic mass] 29.2 pg Normal 27.0-33.0 [facility] Comment on above: Performed By: #### L [id number] ####[facility] ([facility])[address] [place] [address] MCV (RBC) [Entitic vol] 94.4 fL Normal 82.0-98.0 [facility] Comment on above: Performed By: #### L [id number] ####[facility] ([facility])[address] [place] [address] Monocytes (Bld) [#/Vol] 0.74 10*3/uL Normal 0.10-1.00 [facility] Comment on above: Performed By: #### L [id number] ####[facility] ([facility])[address] [place] [address] Monocytes/100 WBC (Bld) 10.3 % Normal 5.0-12.0 [facility] Comment on above: Performed By: #### L [id number] ####[facility] ([facility])[address] [place] [address] Neutrophils (Bld) [#/Vol] 4.04 10*3/uL Normal 1.60-7.60 [facility] Comment on above: Performed By: #### L [id number] ####[facility] [place] [address] Neutrophils/100 WBC (Bld) 56.2 % Normal 40.0-72.0 [facility] Comment on above: Performed By: #### L [id number] ####[facility] [place] [address] NRBC (PER 100 WBCS) BY AUTOMATED COUNT 0.0 % Normal 0 [facility] Comment on above: Performed By: #### L [id number] ####[facility] ([facility] [place] [address] PLATELETS (10*3/UL) IN BLOOD AUTOMATED COUNT 234 10*3/uL Normal 150-400 [facility] Comment on above: Performed By: #### L [id number] ####[facility] [place] [address] RBC (Bld) [#/Vol] 4.86 10*6/uL Normal 4.20-5.70 [facility] Comment on above: Performed By: #### L [id number] ####[facility] [place] [address] WBC (Bld) [#/Vol] 7.19 10*3/uL Normal 4.00-10.60 [facility] Comment on above: Performed By: #### L [id number] ####[facility] [place] [address] MAGNESIUMon 09-07-2024 Magnesium [Mass/Vol] 1.7 mg/dL Low 1.9-2.7 [facility] Comment on above: Performed By: #### L [id number] ####[facility] [place] [address] NURSNOTEon 09-07-2024 NURSNOTE Signed off to Ian engel RN [facility] NURSNOTE HOB up @ 40 degrees, NO c/o of pain, or SOB at this time Urinal at bedside Call light within reach IV INT'd, intact, no redness noted Pulse ox--97% O 2 cont. On pt. Per nasal cannula @ 4 L/min NC Telemetry cont. On pt [facility] NURSNOTE [facility] NURSNOTE Tried to call Elias, pt's brother, no answer, still, at this time, 3rd attempt [facility] NURSNOTE [facility] NURSNOTE Pt's family brought him a hamburger last night, and the pt. Is eating it now. Pt. Encouraged not to eat, since the hamburger has been sitting out all night. Pt. Cont. To eat burger. [facility] NURSNOTE Eyes closed resp. Easy @ 18/min Pulse ox--98% Telemetry cont. On pt [facility] Orders Onlyon 09-07-2024 Orders Only [id number] Tyler Mckinney 1960 M Date Provider Department Center 09/07/[id number]-OJAWEFXZ-KKRCNU, JENN*[facility] [place] [facility] No family history on file [facility] PHOSPHORUSon 09-07-2024 Magnesium [Mass/Vol] 3.5 mg/dL Normal 2.5-5.0 [facility] Comment on above: Performed By: #### L [id number] ####[facility] ([facility] [place] [address] POCT GLUCOSE METER UNSOLICIT ED RESULTSon 09-07-2024 Glucose [Mass/Vol] 200 mg/dL High 70-105 [facility] Comment on above: Order Comment: Waive d Testing in the ED is performed under the ED CLIA certificate #[id number]. Result Comment: droc kol Performed By: #### L [id number] ####[facility] ([facility])[address] [place] [address] Glucose [Mass/Vol] 211 mg/dL High 70-105 [facility] Comment on above: Order Comment: Waive d Testing in the ED is performed under the ED CLIA certificate #[id number]. Result Comment: awul ff3 Performed By: #### L [id number] ####[facility] ([facility])[address] [place] [address] Glucose [Mass/Vol] 298 mg/dL High 70-105 [facility] Comment on above: Order Comment: Waive d Testing in the ED is performed under the ED CLIA certificate #[id number]. Result Comment: awul ff3 Performed By: #### L [id number] ####[facility] ([facility] [place] [address] Glucose [Mass/Vol] 155 mg/dL High 70-105 [facility] Comment on above: Order Comment: Waive d Testing in the ED is performed under the ED CLIA certificate #[id number]. Result Comment: awul ff3 Performed By: #### L [id number] ####[facility] ([facility] [place] [address] 30on 09-06-2024 30 Normal [facility] 30 Normal [facility] BASIC METABOLIC PANELon 08-21 Anion gap [Moles/Vol] 11 mmol/L Normal 7-20 [facility] Comment on above: Performed By: #### L [id number] ####[facility] [place] [address] Calcium [Mass/Vol] 9.8 mg/dL Normal 8.6-10.3 [facility] Comment on above: Performed By: #### L [id number] ####[facility] ([facility])[address] [place] [address] Chloride [Moles/Vol] 98 mmol/L Normal 98-107 [facility] Comment on above: Performed By: #### L [id number] ####[facility] ([facility])[address] [place] [address] CO2 [Moles/Vol] 31 mmol/L Normal 21-31 [facility] Comment on above: Performed By: #### L [id number] ####[facility] ([facility])[address] [place] [address] Creatinine [Mass/Vol] 0.90 mg/dL Normal 0.70-1.30 [facility] Comment on above: Performed By: #### L [id number] ####[facility] ([facility])[address] [place] [address] GLOMERULAR FILTRATION RATE ML/MIN/1.73 SQ M.PREDICTED 94.8 mL/min/1.73m*2 Normal >60.[address] [facility] Comment on above: Result Comment: [facility]???s estimated glomerular filtration rate (eGFR) will [...] of individuals. Performed By: #### L [id number] ####[facility] ([facility] [place] [address] Glucose [Mass/Vol] 244 mg/dL High 70-100 [facility] Comment on above: Performed By: #### L [id number] ####[facility] ([facility] [place] [address] Potassium [Moles/Vol] 3.9 mmol/L Normal 3.5-5.1 [facility] Comment on above: Performed By: #### L [id number] ####[facility] [place] [address] Sodium [Moles/Vol] 136 mmol/L Normal 136-145 [facility] Comment on above: Performed By: #### L [id number] ####[facility] ([facility])[address] [place] [address] Urea nitrogen [Mass/Vol] 18 mg/dL Normal 7-25 [facility] Comment on above: Performed By: #### L [id number] ####[facility] ([facility])[address] [place] [address] UREA NITROGEN/CREATININE (MASS RATIO) IN SER/PLAS 20.0 Normal [facility] Comment on above: Performed By: #### L [id number] ####[facility] ([facility] [place] [address] CBC WITH AUTO DIFFERENTIALon 09-06-2024 Basophils (Bld) [#/Vol] 0.07 10*3/uL Normal 0.00-0.20 [facility] Comment on above: Performed By: #### L [id number] ####[facility] ([facility] [place], [place] [address] Basophils/100 WBC (Bld) 1.0 % Normal 0.0-1.0 [facility] Comment on above: Performed By: #### L [id number] ####[facility] ([facility] [place] [address] Eosinophils (Bld) [#/Vol] 0.40 10*3/uL Normal 0.00-0.50 [facility] Comment on above: Performed By: #### L [id number] ####[facility] [place] [address] Eosinophils/100 WBC (Bld) 5.9 % Normal 0.0-6.0 [facility] Comment on above: Performed By: #### L [id number] ####[facility] [place] [address] Erythrocyte distribution width (RBC) [Ratio] 15.2 % High 11.5-15.0 [facility] Comment on above: Performed By: #### L [id number] ####[facility] ([facility])[address] [place] [address] ERYTHROCYTE MEAN CORPUSCULAR HEMOGLOBIN CONCENTRATION (G/DL) BY AUTOMATED 30.7 g/dL Low 32.0-35.0 [facility] Comment on above: Performed By: #### L [id number] ####[facility] (BEAKER)[address] [place] [address] Hematocrit (Bld) [Volume fraction] 47.3 % Normal 39.0-55.0 [facility] Comment on above: Performed By: #### L [id number] ####[facility] (BEAKER)[address] [place] [address] Hemoglobin (Bld) [Mass/Vol] 14.5 g/dL Normal 13.0-17.0 [facility] Comment on above: Performed By: #### L [id number] ####[facility] (BEAKER)[address] [place] [address] Immature granulocytes (Bld) [#/Vol] 0.05 10*3/uL Normal 0.00-0.20 [facility] Comment on above: Performed By: #### L [id number] ####[facility] (BEAKER)[address] [place] [address] Immature granulocytes/100 WBC (Bld) 0.7 % Normal 0.0-1.0 [facility] Comment on above: Performed By: #### L [id number] ####[facility] (BEAKER)[address] [place] [address] Lymphocytes (Bld) [#/Vol] 1.52 10*3/uL Normal 1.20-4.00 [facility] Comment on above: Performed By: #### L [id number] ####[facility] (BEAKER)[address] [place] [address] Lymphocytes/100 WBC (Bld) 22.5 % Normal 20.0-45.0 [facility] Comment on above: Performed By: #### L [id number] ####[facility] (BEAKER)[address] [place] [address] MCH (RBC) [Entitic mass] 29.1 pg Normal 27.0-33.0 [facility] Comment on above: Performed By: #### L [id number] ####[facility] ([facility])[address] [place], [place] [address] MCV (RBC) [Entitic vol] 95.0 fL Normal 82.0-98.0 [facility] Comment on above: Performed By: #### L [id number] ####[facility] ([facility] [place] [address] Monocytes (Bld) [#/Vol] 0.74 10*3/uL Normal 0.10-1.00 [facility] Comment on above: Performed By: #### L [id number] ####[facility] ([facility])[address] [place] [address] Monocytes/100 WBC (Bld) 10.9 % Normal 5.0-12.0 [facility] Comment on above: Performed By: #### L [id number] ####[facility] ([facility] [place] [address] Neutrophils (Bld) [#/Vol] 3.98 10*3/uL Normal 1.60-7.60 [facility] Comment on above: Performed By: #### L [id number] ####[facility] ([facility])[address] [place] [address] Neutrophils/100 WBC (Bld) 59.0 % Normal 40.0-72.0 [facility] Comment on above: Performed By: #### L [id number] ####[facility] ([facility])[address] [place] [address] NRBC (PER 100 WBCS) BY AUTOMATED COUNT 0.0 % Normal 0 [facility] Comment on above: Performed By: #### L [id number] ####[facility] ([facility])[address] [place] [address] PLATELETS (10*3/UL) IN BLOOD AUTOMATED COUNT 251 10*3/uL Normal 150-400 [facility] Comment on above: Performed By: #### L [id number] ####[facility] ([facility])[address] [place] [address] RBC (Bld) [#/Vol] 4.98 10*6/uL Normal 4.20-5.70 [facility] Comment on above: Performed By: #### L [id number] ####[facility] ([facility] [place] [address] WBC (Bld) [#/Vol] 6.76 10*3/uL Normal 4.00-10.60 [facility] Comment on above: Performed By: #### L [id number] ####[facility] ([facility] [place] [address] MAGNESIUMon 09-06-2024 Magnesium [Mass/Vol] 1.6 mg/dL Low 1.9-2.7 [facility] Comment on above: Performed By: #### L [id number] ####[facility] ([facility] [place] [address] NURSNOTEon 09-06-2024 NURSNOTE Signed off to Ian engel RN--with bedside rounding Pt. Cont. To sit up in a chair at bedside Call light within reach [facility] NURSNOTE [facility] NURSNOTE Pt refused to go yeni k to bed at this time Pt. Cont. To sit up in a chair at bedside No c/o of SOB or nausea at this time Resp. Easy @ 18/min [facility] PHOSPHORUSon 09-06-2024 Magnesium [Mass/Vol] 3.4 mg/dL Normal 2.5-5.0 [facility] Comment on above: Performed By: #### L [id number] ####[facility] ([facility] [place] [address] POCT GLUCOSE METER UNSOLICIT ED RESULTSon 09-06-2024 Glucose [Mass/Vol] 255 mg/dL High 70-105 [facility] Comment on above: Order Comment: Waive d Testing in the ED is performed under the ED CLIA certificate #[id number]. Result Comment: [email or web address] [email or web address] Performed By: #### L [id number] ####[facility] ([facility])[address] [place] [address] Glucose [Mass/Vol] 208 mg/dL High 70-105 [facility] Comment on above: Order Comment: Waive d Testing in the ED is performed under the ED CLIA certificate #[id number]. Result Comment: [email or web address] [email or web address] Performed By: #### L [id number] ####[facility] ([facility])[address] [place] [address] Glucose [Mass/Vol] 173 mg/dL High 70-105 [facility] Comment on above: Order Comment: Waive d Testing in the ED is performed under the ED CLIA certificate #[id number]. Result Comment: [email or web address] Performed By: #### L [id number] ####[facility] ([facility] [place] [address] Glucose [Mass/Vol] 210 mg/dL High 70-105 [facility] Comment on above: Order Comment: Waive d Testing in the ED is performed under the ED CLIA certificate #[id number]. Result Comment: [email or web address] Performed By: #### L [id number] ####[facility] ([facility])[address] [place] [address] BASIC METABOLIC PANELon 08-21 Anion gap [Moles/Vol] 8 mmol/L Normal 7-20 [facility] Comment on above: Performed By: #### L [id number] ####[facility] ([facility])[address] [place] [address] Calcium [Mass/Vol] 9.9 mg/dL Normal 8.6-10.3 [facility] Comment on above: Performed By: #### L [id number] ####[facility] ([facility])[address] [place] [address] Chloride [Moles/Vol] 98 mmol/L Normal 98-107 [facility] Comment on above: Performed By: #### L [id number] ####[facility] ([facility] [place] [address] CO2 [Moles/Vol] 33 mmol/L High 21-31 [facility] Comment on above: Performed By: #### L [id number] ####[facility] ([facility] [place] [address] Creatinine [Mass/Vol] 0.90 mg/dL Normal 0.70-1.30 [facility] Comment on above: Performed By: #### L [id number] ####[facility] ([facility])[address] [place] [address] GLOMERULAR FILTRATION RATE ML/MIN/1.73 SQ M.PREDICTED 94.8 mL/min/1.73m*2 Normal >60.[address] [facility] Comment on above: Result Comment: [facility]???s estimated glomerular filtration rate (eGFR) will [...] of individuals. Performed By: #### L [id number] ####[facility] ([facility] [place] [address] Glucose [Mass/Vol] 142 mg/dL High 70-100 [facility] Comment on above: Performed By: #### L [id number] ####[facility] [place] [address] Potassium [Moles/Vol] 4.1 mmol/L Normal 3.5-5.1 [facility] Comment on above: Performed By: #### L [id number] ####[facility] ([facility] [place] [address] Sodium [Moles/Vol] 135 mmol/L Low 136-145 [facility] Comment on above: Performed By: #### L [id number] ####[facility] ([facility] [place] [address] Urea nitrogen [Mass/Vol] 19 mg/dL Normal 7-25 [facility] Comment on above: Performed By: #### L [id number] ####[facility] ([facility])[address] [place] [address] UREA NITROGEN/CREATININE (MASS RATIO) IN SER/PLAS 21.1 Normal [facility] Comment on above: Performed By: #### L [id number] ####[facility] ([facility] [place] [address] CBC WITH AUTO DIFFERENTIALon 09-05-2024 Basophils (Bld) [#/Vol] 0.07 10*3/uL Normal 0.00-0.20 [facility] Comment on above: Performed By: #### L [id number] ####[facility] ([facility])[address] [place] [address] Basophils/100 WBC (Bld) 0.9 % Normal 0.0-1.0 [facility] Comment on above: Performed By: #### L [id number] ####[facility] ([facility] [place] [address] Eosinophils (Bld) [#/Vol] 0.38 10*3/uL Normal 0.00-0.50 [facility] Comment on above: Performed By: #### L [id number] ####[facility] ([facility] [facility] [place] [address] Eosinophils/100 WBC (Bld) 5.0 % Normal 0.0-6.0 [facility] Comment on above: Performed By: #### L [id number] ####[facility] ([facility] [place] [address] Erythrocyte distribution width (RBC) [Ratio] 15.2 % High 11.5-15.0 [facility] Comment on above: Performed By: #### L [id number] ####[facility] ([facility] [place] [address] ERYTHROCYTE MEAN CORPUSCULAR HEMOGLOBIN CONCENTRATION (G/DL) BY AUTOMATED 31.4 g/dL Low 32.0-35.0 [facility] Comment on above: Performed By: #### L [id number] ####[facility] ([facility])[address] [place] [address] Hematocrit (Bld) [Volume fraction] 47.1 % Normal 39.0-55.0 [facility] Comment on above: Performed By: #### L [id number] ####[facility] [place] [address] Hemoglobin (Bld) [Mass/Vol] 14.8 g/dL Normal 13.0-17.0 [facility] Comment on above: Performed By: #### L [id number] ####[facility] ([facility])[address] [place] [address] Immature granulocytes (Bld) [#/Vol] 0.06 10*3/uL Normal 0.00-0.20 [facility] Comment on above: Performed By: #### L [id number] ####[facility] ([facility])[address] [place] [address] Immature granulocytes/100 WBC (Bld) 0.8 % Normal 0.0-1.0 [facility] Comment on above: Performed By: #### L [id number] ####[facility] ([facility])[address] [place] [address] Lymphocytes (Bld) [#/Vol] 1.99 10*3/uL Normal 1.20-4.00 [facility] Comment on above: Performed By: #### L [id number] ####[facility] ([facility])[address] [place] [address] Lymphocytes/100 WBC (Bld) 26.0 % Normal 20.0-45.0 [facility] Comment on above: Performed By: #### L [id number] ####[facility] ([facility])[address] [place] [address] MCH (RBC) [Entitic mass] 28.8 pg Normal 27.0-33.0 [facility] Comment on above: Performed By: #### L [id number] ####[facility] ([facility])[address] [place] [address] MCV (RBC) [Entitic vol] 91.6 fL Normal 82.0-98.0 [facility] Comment on above: Performed By: #### L [id number] ####[facility] ([facility])[address] [place] [address] Monocytes (Bld) [#/Vol] 0.77 10*3/uL Normal 0.10-1.00 [facility] Comment on above: Performed By: #### L [id number] ####[facility] ([facility])[address] [place] [address] Monocytes/100 WBC (Bld) 10.1 % Normal 5.0-12.0 [facility] Comment on above: Performed By: #### L [id number] ####[facility] ([facility])[address] [place] [address] Neutrophils (Bld) [#/Vol] 4.39 10*3/uL Normal 1.60-7.60 [facility] Comment on above: Performed By: #### L [id number] ####[facility] ([facility])[address] [place] [address] Neutrophils/100 WBC (Bld) 57.2 % Normal 40.0-72.0 [facility] Comment on above: Performed By: #### L [id number] ####[facility] ([facility])[address] [place] [address] NRBC (PER 100 WBCS) BY AUTOMATED COUNT 0.0 % Normal 0 [facility] Comment on above: Performed By: #### L [id number] ####[facility] ([facility])[address] [place] [address] PLATELETS (10*3/UL) IN BLOOD AUTOMATED COUNT 274 10*3/uL Normal 150-400 [facility] Comment on above: Performed By: #### L [id number] ####[facility] ([facility] [place] [address] RBC (Bld) [#/Vol] 5.14 10*6/uL Normal 4.20-5.70 [facility] Comment on above: Performed By: #### L [id number] ####[facility] [place] [address] WBC (Bld) [#/Vol] 7.66 10*3/uL Normal 4.00-10.60 [facility] Comment on above: Performed By: #### L [id number] ####[facility] ([facility] [place] [address] MAGNESIUMon 09-05-2024 Magnesium [Mass/Vol] 1.6 mg/dL Low 1.9-2.7 [facility] Comment on above: Performed By: #### L [id number] ####[facility] ([facility] [place] [address] PHOSPHORUSon 09-05-2024 Magnesium [Mass/Vol] 2.8 mg/dL Normal 2.5-5.0 [facility] Comment on above: Performed By: #### L [id number] ####[facility] ([facility] [place] [address] POCT GLUCOSE METER UNSOLICIT ED RESULTSon 09-05-2024 Glucose [Mass/Vol] 221 mg/dL High 70-105 [facility] Comment on above: Order Comment: Waive d Testing in the ED is performed under the ED CLIA certificate #[id number]. Result Comment: [email or web address] kol Performed By: #### L [id number] ####[facility] ([facility] [place] [address] Glucose [Mass/Vol] 204 mg/dL High 70-105 [facility] Comment on above: Order Comment: Waive d Testing in the ED is performed under the ED CLIA certificate #[id number]. Result Comment: [email or web address] Performed By: #### L [id number] ####[facility] ([facility])[address] [place] [address] Glucose [Mass/Vol] 222 mg/dL High 70-105 [facility] Comment on above: Order Comment: Waive d Testing in the ED is performed under the ED CLIA certificate #[id number]. Result Comment: [email or web address] Performed By: #### L [id number] ####[facility] ([facility])[address] [place] [address] Glucose [Mass/Vol] 141 mg/dL High 70-105 [facility] Comment on above: Order Comment: Waive d Testing in the ED is performed under the ED CLIA certificate #[id number]. Result Comment: [email or web address] Performed By: #### L [id number] ####[facility] ([facility])[address] [place] [address] 30on 09-04-2024 30 Normal [facility] BASIC METABOLIC PANELon 08-21 Anion gap [Moles/Vol] 7 mmol/L Normal 7-20 [facility] Comment on above: Performed By: #### L [id number] ####[facility] ([facility])[address] [place] [address] Calcium [Mass/Vol] 9.6 mg/dL Normal 8.6-10.3 [facility] Comment on above: Performed By: #### L [id number] ####[facility] ([facility])[address] [place] [address] Chloride [Moles/Vol] 98 mmol/L Normal 98-107 [facility] Comment on above: Performed By: #### L [id number] ####[facility] ([facility])[address] [place] [address] CO2 [Moles/Vol] 35 mmol/L High 21-31 [facility] Comment on above: Performed By: #### L [id number] ####[facility] [place] [address] Creatinine [Mass/Vol] 0.88 mg/dL Normal 0.70-1.30 [facility] Comment on above: Performed By: #### L [id number] ####[facility] ([facility] [place] [address] GLOMERULAR FILTRATION RATE ML/MIN/1.73 SQ M.PREDICTED 95.4 mL/min/1.73m*2 Normal >60.[address] [facility] Comment on above: Result Comment: [facility]???s estimated glomerular filtration rate (eGFR) will [...] of individuals. Performed By: #### L [id number] ####[facility] [place] [address] Glucose [Mass/Vol] 155 mg/dL High 70-100 [facility] Comment on above: Performed By: #### L [id number] ####[facility] [place] [address] Potassium [Moles/Vol] 4.3 mmol/L Normal 3.5-5.1 [facility] Comment on above: Performed By: #### L [id number] ####[facility] [facility] [place] [address] Sodium [Moles/Vol] 136 mmol/L Normal 136-145 [facility] Comment on above: Performed By: #### L [id number] ####[facility] ([facility])[address] [place] [address] Urea nitrogen [Mass/Vol] 22 mg/dL Normal 7-25 [facility] Comment on above: Performed By: #### L [id number] ####[facility] [place] [address] UREA NITROGEN/CREATININE (MASS RATIO) IN SER/PLAS 25.0 Normal [facility] Comment on above: Performed By: #### L [id number] ####[facility] [place] [address] CBC WITH AUTO DIFFERENTIALon 09-04-2024 Basophils (Bld) [#/Vol] 0.06 10*3/uL Normal 0.00-0.20 [facility] Comment on above: Performed By: #### L [id number] ####[facility] [place] [address] Basophils/100 WBC (Bld) 1.0 % Normal 0.0-1.0 [facility] Comment on above: Performed By: #### L [id number] ####[facility] ([facility])[address] [place] [address] Eosinophils (Bld) [#/Vol] 0.38 10*3/uL Normal 0.00-0.50 [facility] Comment on above: Performed By: #### L [id number] ####[facility] [place] [address] Eosinophils/100 WBC (Bld) 6.1 % High 0.0-6.0 [facility] Comment on above: Performed By: #### L [id number] ####[facility] ([facility])[address] [place] [address] Erythrocyte distribution width (RBC) [Ratio] 15.2 % High 11.5-15.0 [facility] Comment on above: Performed By: #### L [id number] ####[facility] ([facility])[address] [place] [address] ERYTHROCYTE MEAN CORPUSCULAR HEMOGLOBIN CONCENTRATION (G/DL) BY AUTOMATED 30.6 g/dL Low 32.0-35.0 [facility] Comment on above: Performed By: #### L [id number] ####[facility] [place] [address] Hematocrit (Bld) [Volume fraction] 48.4 % Normal 39.0-55.0 [facility] Comment on above: Performed By: #### L [id number] ####[facility] [place] [address] Hemoglobin (Bld) [Mass/Vol] 14.8 g/dL Normal 13.0-17.0 [facility] Comment on above: Performed By: #### L [id number] ####[facility] [place] [address] Immature granulocytes (Bld) [#/Vol] 0.04 10*3/uL Normal 0.00-0.20 [facility] Comment on above: Performed By: #### L [id number] ####[facility] [place] [address] Immature granulocytes/100 WBC (Bld) 0.6 % Normal 0.0-1.0 [facility] Comment on above: Performed By: #### L [id number] ####[facility] ([facility])[address] [place] [address] Lymphocytes (Bld) [#/Vol] 1.68 10*3/uL Normal 1.20-4.00 [facility] Comment on above: Performed By: #### L [id number] ####[facility] ([facility])[address] [place] [address] Lymphocytes/100 WBC (Bld) 27.1 % Normal 20.0-45.0 [facility] Comment on above: Performed By: #### L [id number] ####[facility] ([facility])[address] [place] [address] MCH (RBC) [Entitic mass] 28.6 pg Normal 27.0-33.0 [facility] Comment on above: Performed By: #### L [id number] ####[facility] [place] [address] MCV (RBC) [Entitic vol] 93.6 fL Normal 82.0-98.0 [facility] Comment on above: Performed By: #### L [id number] ####[facility] [place] [address] Monocytes (Bld) [#/Vol] 0.74 10*3/uL Normal 0.10-1.00 [facility] Comment on above: Performed By: #### L [id number] ####[facility] [place] [address] Monocytes/100 WBC (Bld) 11.9 % Normal 5.0-12.0 [facility] Comment on above: Performed By: #### L [id number] ####[facility] [place] [address] Neutrophils (Bld) [#/Vol] 3.31 10*3/uL Normal 1.60-7.60 [facility] Comment on above: Performed By: #### L [id number] ####[facility] [place] [address] Neutrophils/100 WBC (Bld) 53.3 % Normal 40.0-72.0 [facility] Comment on above: Performed By: #### L [id number] ####[facility] [place] [address] NRBC (PER 100 WBCS) BY AUTOMATED COUNT 0.0 % Normal 0 [facility] Comment on above: Performed By: #### L [id number] ####[facility] [place] [address] PLATELETS (10*3/UL) IN BLOOD AUTOMATED COUNT 254 10*3/uL Normal 150-400 [facility] Comment on above: Performed By: #### L [id number] ####[facility] [place] [address] RBC (Bld) [#/Vol] 5.17 10*6/uL Normal 4.20-5.70 [facility] Comment on above: Performed By: #### L [id number] ####[facility] [place] [address] WBC (Bld) [#/Vol] 6.21 10*3/uL Normal 4.00-10.60 [facility] Comment on above: Performed By: #### L [id number] ####[facility] [place] [address] POCT GLUCOSE METER UNSOLICIT ED RESULTSon 09-04-2024 Glucose [Mass/Vol] 219 mg/dL High 70-105 [facility] Comment on above: Order Comment: Waive d Testing in the ED is performed under the ED CLIA certificate #[id number]. Result Comment: [email or web address] [email or web address] Performed By: #### L [id number] ####[facility] [place] [address] Glucose [Mass/Vol] 156 mg/dL High 70-105 [facility] Comment on above: Order Comment: Waive d Testing in the ED is performed under the ED CLIA certificate #[id number]. Result Comment: [email or web address] Performed By: #### L [id number] ####[facility] [place] [address] Glucose [Mass/Vol] 190 mg/dL High 70-105 [facility] Comment on above: Order Comment: Waive d Testing in the ED is performed under the ED CLIA certificate #[id number]. Result Comment: [email or web address] Performed By: #### L [id number] ####[facility] [place] [address] Glucose [Mass/Vol] 149 mg/dL High 70-105 [facility] Comment on above: Order Comment: Waive d Testing in the ED is performed under the ED CLIA certificate #[id number]. Result Comment: [email or web address] [email or web address] Performed By: #### L [id number] ####[facility] ([facility])[address] [place] [address] 30on 09-03-2024 30 Normal [facility] BASIC METABOLIC PANELon 08-21 Anion gap [Moles/Vol] 11 mmol/L Normal 7-20 [facility] Comment on above: Performed By: #### L [id number] ####[facility] ([facility])[address] [place] [address] Calcium [Mass/Vol] 9.7 mg/dL Normal 8.6-10.3 [facility] Comment on above: Performed By: #### L [id number] ####[facility] ([facility])[address] [place] [address] Chloride [Moles/Vol] 96 mmol/L Low 98-107 [facility] Comment on above: Performed By: #### L [id number] ####[facility] ([facility])[address] [place] [address] CO2 [Moles/Vol] 33 mmol/L High 21-31 [facility] Comment on above: Performed By: #### L [id number] ####[facility] ([facility]AK[facility])[address] [place] [address] Creatinine [Mass/Vol] 0.87 mg/dL Normal 0.70-1.30 [facility] Comment on above: Performed By: #### L [id number] ####[facility] ([facility]AKER)[address] [place] [address] GLOMERULAR FILTRATION RATE ML/MIN/1.73 SQ M.PREDICTED 95.8 mL/min/1.73m*2 Normal >60.[address] [facility] Comment on above: Result Comment: [facility]???s estimated glomerular filtration rate (eGFR) will [...] of individuals. Performed By: #### L [id number] ####[facility] ([facility])[address] [place] [address] Glucose [Mass/Vol] 161 mg/dL High 70-100 [facility] Comment on above: Performed By: #### L [id number] ####[facility] ([facility])[address] [place] [address] Potassium [Moles/Vol] 4.2 mmol/L Normal 3.5-5.1 [facility] Comment on above: Performed By: #### L [id number] ####[facility] ([facility])[address] [place] [address] Sodium [Moles/Vol] 136 mmol/L Normal 136-145 [facility] Comment on above: Performed By: #### L [id number] ####[facility] ([facility])[address] [place] [address] Urea nitrogen [Mass/Vol] 23 mg/dL Normal 7-25 [facility] Comment on above: Performed By: #### L [id number] ####[facility] ([facility])[address] [place] [address] UREA NITROGEN/CREATININE (MASS RATIO) IN SER/PLAS 26.4 Normal [place] [facility] Comment on above: Performed By: #### L [id number] ####[facility] ([facility] [place] [address] CBC WITH AUTO DIFFERENTIALon 09-03-2024 Basophils (Bld) [#/Vol] 0.07 10*3/uL Normal 0.00-0.20 [facility] Comment on above: Performed By: #### L [id number] ####[facility] ([facility])[address] [place] [address] Basophils/100 WBC (Bld) 0.8 % Normal 0.0-1.0 [facility] Comment on above: Performed By: #### L [id number] ####[facility] ([facility])[address] [place] [address] Eosinophils (Bld) [#/Vol] 0.40 10*3/uL Normal 0.00-0.50 [facility] Comment on above: Performed By: #### L [id number] ####[facility] ([facility])[address] [place] [address] Eosinophils/100 WBC (Bld) 4.8 % Normal 0.0-6.0 [facility] Comment on above: Performed By: #### L [id number] ####[facility] ([facility])[address] [place] [address] Erythrocyte distribution width (RBC) [Ratio] 15.3 % High 11.5-15.0 [facility] Comment on above: Performed By: #### L [id number] ####[facility] ([facility])[address] [place] [address] ERYTHROCYTE MEAN CORPUSCULAR HEMOGLOBIN CONCENTRATION (G/DL) BY AUTOMATED 31.8 g/dL Low 32.0-35.0 [facility] Comment on above: Performed By: #### L [id number] ####[facility] ([facility])[address] [place] [address] Hematocrit (Bld) [Volume fraction] 46.8 % Normal 39.0-55.0 [facility] Comment on above: Performed By: #### L [id number] ####[facility] ([facility])[address] [place] [address] Hemoglobin (Bld) [Mass/Vol] 14.9 g/dL Normal 13.0-17.0 [facility] Comment on above: Performed By: #### L [id number] ####[facility] ([facility])[address] [place] [address] Immature granulocytes (Bld) [#/Vol] 0.05 10*3/uL Normal 0.00-0.20 [facility] Comment on above: Performed By: #### L [id number] ####[facility] ([facility])[address] [place] [address] Immature granulocytes/100 WBC (Bld) 0.6 % Normal 0.0-1.0 [facility] Comment on above: Performed By: #### L [id number] ####[facility] ([facility])[address] [place] [address] Lymphocytes (Bld) [#/Vol] 1.73 10*3/uL Normal 1.20-4.00 [facility] Comment on above: Performed By: #### L [id number] ####[facility] ([facility])[address] [place] [address] Lymphocytes/100 WBC (Bld) 20.9 % Normal 20.0-45.0 [facility] Comment on above: Performed By: #### L [id number] ####[facility] ([facility])[address] [place] [address] MCH (RBC) [Entitic mass] 29.3 pg Normal 27.0-33.0 [facility] Comment on above: Performed By: #### L [id number] ####[facility] ([facility])[address] [place] [address] MCV (RBC) [Entitic vol] 91.9 fL Normal 82.0-98.0 [facility] Comment on above: Performed By: #### L [id number] ####[facility] ([facility])[address] [place] [address] Monocytes (Bld) [#/Vol] 0.96 10*3/uL Normal 0.10-1.00 [facility] Comment on above: Performed By: #### L [id number] ####[facility] ([facility])[address] [place] [address] Monocytes/100 WBC (Bld) 11.6 % Normal 5.0-12.0 [facility] Comment on above: Performed By: #### L [id number] ####[facility] ([facility])[address] [place] [address] Neutrophils (Bld) [#/Vol] 5.06 10*3/uL Normal 1.60-7.60 [facility] Comment on above: Performed By: #### L [id number] ####[facility] ([facility])[address] [place] [address] Neutrophils/100 WBC (Bld) 61.3 % Normal 40.0-72.0 [facility] Comment on above: Performed By: #### L [id number] ####[facility] ([facility])[address] [place] [address] NRBC (PER 100 WBCS) BY AUTOMATED COUNT 0.0 % Normal 0 [facility] Comment on above: Performed By: #### L [id number] ####[facility] ([facility])[address] [place] [address] PLATELETS (10*3/UL) IN BLOOD AUTOMATED COUNT 264 10*3/uL Normal 150-400 [facility] Comment on above: Performed By: #### L [id number] ####[facility] ([facility])[address] [address] RBC (Bld) [#/Vol] 5.09 10*6/uL Normal 4.20-5.70 [facility] Comment on above: Performed By: #### L [id number] ####[facility] ([facility])[address] [address] WBC (Bld) [#/Vol] 8.27 10*3/uL Normal 4.00-10.60 [facility] Comment on above: Performed By: #### L [id number] ####[facility] ([facility])[address] [place] [address] MAGNESIUMon 09-03-2024 Magnesium [Mass/Vol] 1.6 mg/dL Low 1.9-2.7 [facility] Comment on above: Performed By: #### L [id number] ####[facility] ([facility])[address] [place] [address] PHOSPHORUSon 09-03-2024 Magnesium [Mass/Vol] 3.3 mg/dL Normal 2.5-5.0 [facility] Comment on above: Performed By: #### L [id number] ####[facility] ([facility])[address] [place] [address] POCT GLUCOSE METER UNSOLICIT ED RESULTSon 09-03-2024 Glucose [Mass/Vol] 168 mg/dL High 70-105 [facility] Comment on above: Order Comment: Waive d Testing in the ED is performed under the ED CLIA certificate #[id number]. Result Comment: [email or web address] pp Performed By: #### L [id number] ####[facility] ([facility])[address] [place] [address] Glucose [Mass/Vol] 184 mg/dL High 70-105 [facility] Comment on above: Order Comment: Waive d Testing in the ED is performed under the ED CLIA certificate #[id number]. Result Comment: mhil [email or web address] Performed By: #### L [id number] ####[facility] ([facility])[address] [place] [address] Glucose [Mass/Vol] 205 mg/dL High 70-105 [facility] Comment on above: Order Comment: Waive d Testing in the ED is performed under the ED CLIA certificate #[id number]. Result Comment: [email or web address] [email or web address] Performed By: #### L [id number] ####[facility] ([facility])[address] [place] [address] Glucose [Mass/Vol] 145 mg/dL High 70-105 [facility] Comment on above: Order Comment: Waive d Testing in the ED is performed under the ED CLIA certificate #[id number]. Result Comment: [email or web address] [email or web address] Performed By: #### L [id number] ####[facility] ([facility])[address] [place] [address] 30on 09-02-2024 30 Normal [facility] BASIC METABOLIC PANELon 08-21 Anion gap [Moles/Vol] 8 mmol/L Normal 7-20 [facility] Comment on above: Performed By: #### L [id number] ####[facility] ([facility])[address] [place] [address] Calcium [Mass/Vol] 9.5 mg/dL Normal 8.6-10.3 [facility] Comment on above: Performed By: #### L [id number] ####[facility] ([facility])[address] [place] [address] Chloride [Moles/Vol] 99 mmol/L Normal 98-107 [facility] Comment on above: Performed By: #### L [id number] ####[facility] ([facility])[address] [place] [address] CO2 [Moles/Vol] 37 mmol/L High 21-31 [facility] Comment on above: Performed By: #### L [id number] ####[facility] ([facility])[address] [place] [address] Creatinine [Mass/Vol] 0.77 mg/dL Normal 0.70-1.30 [facility] Comment on above: Performed By: #### L [id number] ####[facility] ([facility])[address] [place] [address] GLOMERULAR FILTRATION RATE ML/MIN/1.73 SQ M.PREDICTED 99.4 mL/min/1.73m*2 Normal >60.[address] [facility] Comment on above: Result Comment: [facility]???s estimated glomerular filtration rate (eGFR) will [...] of individuals. Performed By: #### L [id number] ####[facility] ([facility])[address] [place] [address] Glucose [Mass/Vol] 160 mg/dL High 70-100 [facility] Comment on above: Performed By: #### L [id number] ####[facility] ([facility])[address] [place] [address] Potassium [Moles/Vol] 4.1 mmol/L Normal 3.5-5.1 [facility] Comment on above: Performed By: #### L [id number] ####[facility] ([facility])[address] [place] [address] Sodium [Moles/Vol] 140 mmol/L Normal 136-145 [facility] Comment on above: Performed By: #### L [id number] ####[facility] ([facility])[address] [place] [address] Urea nitrogen [Mass/Vol] 16 mg/dL Normal 7-25 [facility] Comment on above: Performed By: #### L [id number] ####[facility] ([facility])[address] [place] [address] UREA NITROGEN/CREATININE (MASS RATIO) IN SER/PLAS 20.8 Normal [facility] Comment on above: Performed By: #### L [id number] ####[facility] ([facility])[address] [place] [address] CBC WITH AUTO DIFFERENTIALon 09-02-2024 Basophils (Bld) [#/Vol] 0.07 10*3/uL Normal 0.00-0.20 [facility] Comment on above: Performed By: #### L [id number] ####[facility] ([facility])[address] [place] [address] Basophils/100 WBC (Bld) 1.0 % Normal 0.0-1.0 [facility] Comment on above: Performed By: #### L [id number] ####[facility] ([facility])[address] [place] [address] Eosinophils (Bld) [#/Vol] 0.34 10*3/uL Normal 0.00-0.50 [facility] Comment on above: Performed By: #### L [id number] ####[facility] ([facility])[address] [place] [address] Eosinophils/100 WBC (Bld) 5.0 % Normal 0.0-6.0 [facility] Comment on above: Performed By: #### L [id number] ####[facility] ([facility])[address] [place] [address] Erythrocyte distribution width (RBC) [Ratio] 15.1 % High 11.5-15.0 [facility] Comment on above: Performed By: #### L [id number] ####[facility] ([facility])[address] [place] [address] ERYTHROCYTE MEAN CORPUSCULAR HEMOGLOBIN CONCENTRATION (G/DL) BY AUTOMATED 31.0 g/dL Low 32.0-35.0 [facility] Comment on above: Performed By: #### L [id number] ####[facility] ([facility])[address] [place] [address] Hematocrit (Bld) [Volume fraction] 46.2 % Normal 39.0-55.0 [facility] Comment on above: Performed By: #### L [id number] ####[facility] ([facility] [place] [address] Hemoglobin (Bld) [Mass/Vol] 14.3 g/dL Normal 13.0-17.0 [facility] Comment on above: Performed By: #### L [id number] ####[facility] ([facility] [place] [address] Immature granulocytes (Bld) [#/Vol] 0.04 10*3/uL Normal 0.00-0.20 [facility] Comment on above: Performed By: #### L [id number] ####[facility] ([facility])[address] [place] [address] Immature granulocytes/100 WBC (Bld) 0.6 % Normal 0.0-1.0 [facility] Comment on above: Performed By: #### L [id number] ####[facility] ([facility])[address] [place] [address] Lymphocytes (Bld) [#/Vol] 1.60 10*3/uL Normal 1.20-4.00 [facility] Comment on above: Performed By: #### L [id number] ####[facility] ([facility])[address] [place] [address] Lymphocytes/100 WBC (Bld) 23.7 % Normal 20.0-45.0 [facility] Comment on above: Performed By: #### L [id number] ####[facility] ([facility])[address] [place] [address] MCH (RBC) [Entitic mass] 28.8 pg Normal 27.0-33.0 [facility] Comment on above: Performed By: #### L [id number] ####[facility] ([facility])[address] [place] [address] MCV (RBC) [Entitic vol] 93.1 fL Normal 82.0-98.0 [facility] Comment on above: Performed By: #### L [id number] ####[facility] ([facility])[address] [place] [address] Monocytes (Bld) [#/Vol] 0.86 10*3/uL Normal 0.10-1.00 [facility] Comment on above: Performed By: #### L [id number] ####[facility] ([facility])[address] [facility] [address] Monocytes/100 WBC (Bld) 12.8 % High 5.0-12.0 [facility] Comment on above: Performed By: #### L [id number] ####[facility] ([facility])[address] [place] [address] Neutrophils (Bld) [#/Vol] 3.83 10*3/uL Normal 1.60-7.60 [facility] Comment on above: Performed By: #### L [id number] ####[facility] ([facility])[address] [place] [address] Neutrophils/100 WBC (Bld) 56.9 % Normal 40.0-72.0 [facility] Comment on above: Performed By: #### L [id number] ####[facility] ([facility])[address] [place] [address] NRBC (PER 100 WBCS) BY AUTOMATED COUNT 0.0 % Normal 0 [facility] Comment on above: Performed By: #### L [id number] ####[facility] ([facility])[address] [place] [address] PLATELETS (10*3/UL) IN BLOOD AUTOMATED COUNT 264 10*3/uL Normal 150-400 [facility] Comment on above: Performed By: #### L [id number] ####[facility] ([facility])[address] [place] [address] RBC (Bld) [#/Vol] 4.96 10*6/uL Normal 4.20-5.70 [facility] Comment on above: Performed By: #### L [id number] ####[facility] ([facility])[address] [place] [address] WBC (Bld) [#/Vol] 6.74 10*3/uL Normal 4.00-10.60 [facility] Comment on above: Performed By: #### L [id number] ####[facility] ([facility])[address] [place] [address] NURSNOTEon 09-02-2024 NURSNOTE Normal [facility] NURSNOTE Normal [facility] PHOSPHORUSon 09-02-2024 Magnesium [Mass/Vol] 3.1 mg/dL Normal 2.5-5.0 [facility] Comment on above: Performed By: #### L [id number] ####[facility] ([facility])[address] [place] [address] POCT GLUCOSE METER UNSOLICIT ED RESULTSon 09-02-2024 Glucose [Mass/Vol] 289 mg/dL High 70-105 [facility] Comment on above: Order Comment: Waive d Testing in the ED is performed under the ED CLIA certificate #[id number]. Result Comment: [email or web address] Performed By: #### L [id number] ####[facility] ([facility])[address] [place] [address] Glucose [Mass/Vol] 260 mg/dL High 70-105 [facility] Comment on above: Order Comment: Waive d Testing in the ED is performed under the ED CLIA certificate #[id number]. Result Comment: sbel cad Performed By: #### L [id number] ####[facility] ([facility])[address] [place] [address] Glucose [Mass/Vol] 204 mg/dL High 70-105 [facility] Comment on above: Order Comment: Waive d Testing in the ED is performed under the ED CLIA certificate #[id number]. Result Comment: sbel cad Performed By: #### L [id number] ####[facility] ([facility])[address] [place] [address] Glucose [Mass/Vol] 166 mg/dL High 70-105 [facility] Comment on above: Order Comment: Waive d Testing in the ED is performed under the ED CLIA certificate #[id number]. Result Comment: sbel cad Performed By: #### L [id number] ####[facility] ([facility])[address] [place] [address] 30on 09-01-2024 30 Normal [facility] BASIC METABOLIC PANELon 08-21 Anion gap [Moles/Vol] 7 mmol/L Normal 7-20 [facility] Comment on above: Performed By: #### L [id number] ####[facility] ([facility])[address] [place] [address] Calcium [Mass/Vol] 9.1 mg/dL Normal 8.6-10.3 [facility] Comment on above: Performed By: #### L [id number] ####[facility] ([facility] [place] [address] Chloride [Moles/Vol] 98 mmol/L Normal 98-107 [facility] Comment on above: Performed By: #### L [id number] ####[facility] ([facility])[address] [place] [address] CO2 [Moles/Vol] 36 mmol/L High 21-31 [facility] Comment on above: Performed By: #### L [id number] ####[facility] ([facility])[address] [place] [address] Creatinine [Mass/Vol] 0.84 mg/dL Normal 0.70-1.30 [facility] Comment on above: Performed By: #### L [id number] ####[facility] ([facility])[address] [place] [address] GLOMERULAR FILTRATION RATE ML/MIN/1.73 SQ M.PREDICTED 96.8 mL/min/1.73m*2 Normal >60.[address] [facility] Comment on above: Result Comment: [facility]???s estimated glomerular filtration rate (eGFR) will [...] of individuals. Performed By: #### L [id number] ####[facility] ([facility] [place] [address] Glucose [Mass/Vol] 190 mg/dL High 70-100 [facility] Comment on above: Performed By: #### L [id number] ####[facility] ([facility])[address] [place] [address] Potassium [Moles/Vol] 4.1 mmol/L Normal 3.5-5.1 [facility] Comment on above: Performed By: #### L [id number] ####[facility] ([facility] [place] [address] Sodium [Moles/Vol] 137 mmol/L Normal 136-145 [facility] Comment on above: Performed By: #### L [id number] ####[facility] ([facility])[address] [place] [address] Urea nitrogen [Mass/Vol] 18 mg/dL Normal 7-25 [facility] Comment on above: Performed By: #### L [id number] ####[facility] ([facility])[address] [place] [address] UREA NITROGEN/CREATININE (MASS RATIO) IN SER/PLAS 21.4 Normal [facility] Comment on above: Performed By: #### L [id number] ####[facility] ([facility] [place] [address] CBC WITH AUTO DIFFERENTIALon 09-01-2024 Basophils (Bld) [#/Vol] 0.07 10*3/uL Normal 0.00-0.20 [facility] Comment on above: Performed By: #### L [id number] ####[facility] ([facility])[address] [place] [address] Basophils/100 WBC (Bld) 1.0 % Normal 0.0-1.0 [facility] Comment on above: Performed By: #### L [id number] ####[facility] ([facility])[address] [place] [address] Eosinophils (Bld) [#/Vol] 0.37 10*3/uL Normal 0.00-0.50 [facility] Comment on above: Performed By: #### L [id number] ####[facility] ([facility])[address] [place] [address] Eosinophils/100 WBC (Bld) 5.1 % Normal 0.0-6.0 [facility] Comment on above: Performed By: #### L [id number] ####[facility] ([facility])[address] [place] [address] Erythrocyte distribution width (RBC) [Ratio] 15.1 % High 11.5-15.0 [facility] Comment on above: Performed By: #### L [id number] ####[facility] ([facility])[address] [place] [address] ERYTHROCYTE MEAN CORPUSCULAR HEMOGLOBIN CONCENTRATION (G/DL) BY AUTOMATED 31.3 g/dL Low 32.0-35.0 [facility] Comment on above: Performed By: #### L [id number] ####[facility] ([facility])[address] [place] [address] Hematocrit (Bld) [Volume fraction] 46.3 % Normal 39.0-55.0 [facility] Comment on above: Performed By: #### L [id number] ####[facility] ([facility])[address] [place] [address] Hemoglobin (Bld) [Mass/Vol] 14.5 g/dL Normal 13.0-17.0 [facility] Comment on above: Performed By: #### L [id number] ####[facility] ([facility] [place] [address] Immature granulocytes (Bld) [#/Vol] 0.04 10*3/uL Normal 0.00-0.20 [facility] Comment on above: Performed By: #### L [id number] ####[facility] ([facility])[address] [place] [address] Immature granulocytes/100 WBC (Bld) 0.6 % Normal 0.0-1.0 [facility] Comment on above: Performed By: #### L [id number] ####[facility] ([facility])[address] [place] [address] Lymphocytes (Bld) [#/Vol] 1.46 10*3/uL Normal 1.20-4.00 [facility] Comment on above: Performed By: #### L [id number] ####[facility] ([facility])[address] [place] [address] Lymphocytes/100 WBC (Bld) 20.2 % Normal 20.0-45.0 [facility] Comment on above: Performed By: #### L [id number] ####[facility] ([facility])[address] [place] [address] MCH (RBC) [Entitic mass] 29.1 pg Normal 27.0-33.0 [facility] Comment on above: Performed By: #### L [id number] ####[facility] ([facility])[address] [place] [address] MCV (RBC) [Entitic vol] 92.8 fL Normal 82.0-98.0 [facility] Comment on above: Performed By: #### L [id number] ####[facility] ([facility])[address] [place] [address] Monocytes (Bld) [#/Vol] 0.85 10*3/uL Normal 0.10-1.00 [facility] Comment on above: Performed By: #### L [id number] ####[facility] ([facility])[address] [place] [address] Monocytes/100 WBC (Bld) 11.8 % Normal 5.0-12.0 [facility] Comment on above: Performed By: #### L [id number] ####[facility] ([facility])[address] [place] [address] Neutrophils (Bld) [#/Vol] 4.43 10*3/uL Normal 1.60-7.60 [facility] Comment on above: Performed By: #### L [id number] ####[facility] ([facility])[address] [place] [address] Neutrophils/100 WBC (Bld) 61.3 % Normal 40.0-72.0 [facility] Comment on above: Performed By: #### L [id number] ####[facility] ([facility])[address] [place] [address] NRBC (PER 100 WBCS) BY AUTOMATED COUNT 0.0 % Normal 0 [facility] Comment on above: Performed By: #### L [id number] ####[facility] ([facility])[address] [place] [address] PLATELETS (10*3/UL) IN BLOOD AUTOMATED COUNT 268 10*3/uL Normal 150-400 [facility] Comment on above: Performed By: #### L [id number] ####[facility] [place] [address] RBC (Bld) [#/Vol] 4.99 10*6/uL Normal 4.20-5.70 [facility] Comment on above: Performed By: #### L [id number] ####[facility] [place] [address] WBC (Bld) [#/Vol] 7.22 10*3/uL Normal 4.00-10.60 [facility] Comment on above: Performed By: #### L [id number] ####[facility] [place] [address] MAGNESIUMon 09-01-2024 Magnesium [Mass/Vol] 1.8 mg/dL Low 1.9-2.7 [facility] Comment on above: Performed By: #### L [id number] ####[facility] [place] [address] POCT GLUCOSE METER UNSOLICIT ED RESULTSon 09-01-2024 Glucose [Mass/Vol] 225 mg/dL High 70-105 [facility] Comment on above: Order Comment: Waive d Testing in the ED is performed under the ED CLIA certificate #[id number]. Result Comment: [email or web address] Performed By: #### L [id number] ####[facility] [place] [address] Glucose [Mass/Vol] 181 mg/dL High 70-105 [facility] Comment on above: Order Comment: Waive d Testing in the ED is performed under the ED CLIA certificate #[id number]. Result Comment: [email or web address] Performed By: #### L [id number] ####[facility] [place] [address] Glucose [Mass/Vol] 209 mg/dL High 70-105 [facility] Comment on above: Order Comment: Waive d Testing in the ED is performed under the ED CLIA certificate #[id number]. Result Comment: [email or web address] Performed By: #### L [id number] ####[facility] [place] [address] Glucose [Mass/Vol] 181 mg/dL High 70-105 [facility] Comment on above: Order Comment: Waive d Testing in the ED is performed under the ED CLIA certificate #[id number]. Result Comment: [email or web address] Performed By: #### L [id number] ####[facility] ([facility])[address] [place] [address] 30on 08-31-2024 30 Normal [facility] 30 Normal [facility] BASIC METABOLIC PANELon 08-21 Anion gap [Moles/Vol] 8 mmol/L Normal 7-20 [facility] Comment on above: Performed By: #### L [id number] ####[facility] ([facility])[address] [place] [address] Calcium [Mass/Vol] 9.6 mg/dL Normal 8.6-10.3 [facility] Comment on above: Performed By: #### L [id number] ####[facility] ([facility])[address] [place] [address] Chloride [Moles/Vol] 97 mmol/L Low 98-107 [facility] Comment on above: Performed By: #### L [id number] ####[facility] ([facility])[address] [place] [address] CO2 [Moles/Vol] 35 mmol/L High 21-31 [facility] Comment on above: Performed By: #### L [id number] ####[facility] ([facility])[address] [place] [address] Creatinine [Mass/Vol] 0.85 mg/dL Normal 0.70-1.30 [facility] Comment on above: Performed By: #### L [id number] ####[facility] ([facility])[address] [place] [address] GLOMERULAR FILTRATION RATE ML/MIN/1.73 SQ M.PREDICTED 96.4 mL/min/1.73m*2 Normal >60.[address] [facility] Comment on above: Result Comment: [facility]???s estimated glomerular filtration rate (eGFR) will [...] of individuals. Performed By: #### L [id number] ####[facility] ([facility])[address] [place] [address] Glucose [Mass/Vol] 205 mg/dL High 70-100 [facility] Comment on above: Performed By: #### L [id number] ####[facility] ([facility])[address] [place] [address] Potassium [Moles/Vol] 3.9 mmol/L Normal 3.5-5.1 [facility] Comment on above: Performed By: #### L [id number] ####[facility] ([facility])[address] [place] [address] Sodium [Moles/Vol] 136 mmol/L Normal 136-145 [facility] Comment on above: Performed By: #### L [id number] ####[facility] ([facility])[address] [place] [address] Urea nitrogen [Mass/Vol] 21 mg/dL Normal 7-25 [facility] Comment on above: Performed By: #### L [id number] ####[facility] ([facility])[address] [address] UREA NITROGEN/CREATININE (MASS RATIO) IN SER/PLAS 24.7 Normal [facility] Comment on above: Performed By: #### L [id number] ####[facility] ([facility])[address] [address] CBC WITH AUTO DIFFERENTIALon 08-31-2024 Basophils (Bld) [#/Vol] 0.06 10*3/uL Normal 0.00-0.20 [facility] Comment on above: Performed By: #### L [id number] ####[facility] ([facility] [place] [address] Basophils/100 WBC (Bld) 0.8 % Normal 0.0-1.0 [facility] Comment on above: Performed By: #### L [id number] ####[facility] ([facility])[address] [place] [address] Eosinophils (Bld) [#/Vol] 0.38 10*3/uL Normal 0.00-0.50 [facility] Comment on above: Performed By: #### L [id number] ####[facility] ([facility])[address] [place], [place] [address] Eosinophils/100 WBC (Bld) 5.3 % Normal 0.0-6.0 [facility] Comment on above: Performed By: #### L [id number] ####[facility] ([facility])[address] [place] [address] Erythrocyte distribution width (RBC) [Ratio] 15.2 % High 11.5-15.0 [facility] Comment on above: Performed By: #### L [id number] ####[facility] ([facility])[address] [place] [address] ERYTHROCYTE MEAN CORPUSCULAR HEMOGLOBIN CONCENTRATION (G/DL) BY AUTOMATED 30.4 g/dL Low 32.0-35.0 [facility] Comment on above: Performed By: #### L [id number] ####[facility] ([facility])[address] [place] [address] Hematocrit (Bld) [Volume fraction] 48.3 % Normal 39.0-55.0 [facility] Comment on above: Performed By: #### L [id number] ####[facility] ([facility])[address] [place] [address] Hemoglobin (Bld) [Mass/Vol] 14.7 g/dL Normal 13.0-17.0 [facility] Comment on above: Performed By: #### L [id number] ####[facility] ([facility])[address] [place] [address] Immature granulocytes (Bld) [#/Vol] 0.06 10*3/uL Normal 0.00-0.20 [facility] Comment on above: Performed By: #### L [id number] ####[facility] ([facility])[address] [place] [address] Immature granulocytes/100 WBC (Bld) 0.8 % Normal 0.0-1.0 [facility] Comment on above: Performed By: #### L [id number] ####[facility] ([facility])[address] [place] [address] Lymphocytes (Bld) [#/Vol] 1.17 10*3/uL Low 1.20-4.00 [facility] Comment on above: Performed By: #### L [id number] ####[facility] ([facility])[address] [place] [address] Lymphocytes/100 WBC (Bld) 16.3 % Low 20.0-45.0 [facility] Comment on above: Performed By: #### L [id number] ####[facility] ([facility])[address] [place] [address] MCH (RBC) [Entitic mass] 29.0 pg Normal 27.0-33.0 [facility] Comment on above: Performed By: #### L [id number] ####[facility] ([facility])[address] [place] [address] MCV (RBC) [Entitic vol] 95.3 fL Normal 82.0-98.0 [facility] Comment on above: Performed By: #### L [id number] ####[facility] ([facility])[address] [place] [address] Monocytes (Bld) [#/Vol] 0.82 10*3/uL Normal 0.10-1.00 [facility] Comment on above: Performed By: #### L [id number] ####[facility] ([facility])[address] [place] [address] Monocytes/100 WBC (Bld) 11.4 % Normal 5.0-12.0 [facility] Comment on above: Performed By: #### L [id number] ####[facility] ([facility])[address] [place] [address] Neutrophils (Bld) [#/Vol] 4.70 10*3/uL Normal 1.60-7.60 [facility] Comment on above: Performed By: #### L [id number] ####[facility] ([facility])[address] [place] [address] Neutrophils/100 WBC (Bld) 65.4 % Normal 40.0-72.0 [facility] Comment on above: Performed By: #### L [id number] ####[facility] ([facility])[address] [place] [address] NRBC (PER 100 WBCS) BY AUTOMATED COUNT 0.0 % Normal 0 [facility] Comment on above: Performed By: #### L [id number] ####[facility] ([facility] [place] [address] PLATELETS (10*3/UL) IN BLOOD AUTOMATED COUNT 278 10*3/uL Normal 150-400 [facility] Comment on above: Performed By: #### L [id number] ####[facility] ([facility])[address] [place] [address] RBC (Bld) [#/Vol] 5.07 10*6/uL Normal 4.20-5.70 [facility] Comment on above: Performed By: #### L [id number] ####[facility] ([facility])[address] [place] [address] WBC (Bld) [#/Vol] 7.19 10*3/uL Normal 4.00-10.60 [facility] Comment on above: Performed By: #### L [id number] ####[facility] ([facility])[address] [place] [address] MAGNESIUMon 08-31-2024 Magnesium [Mass/Vol] 1.6 mg/dL Low 1.9-2.7 [facility] Comment on above: Performed By: #### L [id number] ####[facility] ([facility])[address] [place] [address] POCT GLUCOSE METER UNSOLICIT ED RESULTSon 08-31-2024 Glucose [Mass/Vol] 281 mg/dL High 70-105 [facility] Comment on above: Order Comment: Waive d Testing in the ED is performed under the ED CLIA certificate #[id number]. Result Comment: [email or web address] Performed By: #### L [id number] ####[facility] ([facility])[address] [place] [address] Glucose [Mass/Vol] 157 mg/dL High 70-105 [facility] Comment on above: Order Comment: Waive d Testing in the ED is performed under the ED CLIA certificate #[id number]. Result Comment: [email or web address] Performed By: #### L [id number] ####[facility] ([facility])[address] [place] [address] Glucose [Mass/Vol] 212 mg/dL High 70-105 [facility] Comment on above: Order Comment: Waive d Testing in the ED is performed under the ED CLIA certificate #[id number]. Result Comment: [email or web address] Performed By: #### L [id number] ####[facility] ([facility])[address] [place] [address] Glucose [Mass/Vol] 167 mg/dL High 70-105 [facility] Comment on above: Order Comment: Waive d Testing in the ED is performed under the ED CLIA certificate #[id number]. Result Comment: [email or web address] [email or web address] Performed By: #### L [id number] ####[facility] ([facility])[address] [place] [address] 30on 08-30-2024 30 Normal [facility] BASIC METABOLIC PANELon 08-21 Anion gap [Moles/Vol] 10 mmol/L Normal 7-20 [facility] Comment on above: Performed By: #### L [id number] ####[facility] ([facility])[address] [place] [address] Calcium [Mass/Vol] 10.3 mg/dL Normal 8.6-10.3 [facility] Comment on above: Performed By: #### L [id number] ####[facility] ([facility])[address] [place] [address] Chloride [Moles/Vol] 94 mmol/L Low 98-107 [facility] Comment on above: Performed By: #### L [id number] ####[facility] ([facility])[address] [place] [address] CO2 [Moles/Vol] 34 mmol/L High 21-31 [facility] Comment on above: Performed By: #### L [id number] ####[facility] ([facility])[address] [place] [address] Creatinine [Mass/Vol] 0.98 mg/dL Normal 0.70-1.30 [facility] Comment on above: Performed By: #### L [id number] ####[facility] ([facility])[address] [place] [address] GLOMERULAR FILTRATION RATE ML/MIN/1.73 SQ M.PREDICTED 85.6 mL/min/1.73m*2 Normal >60.[address] [facility] Comment on above: Result Comment: [facility]???s estimated glomerular filtration rate (eGFR) will [...] of individuals. Performed By: #### L [id number] ####[facility] ([facility])[address] [place] [address] Glucose [Mass/Vol] 184 mg/dL High 70-100 [facility] Comment on above: Performed By: #### L [id number] ####[facility] ([facility])[address] [place] [address] Potassium [Moles/Vol] 4.1 mmol/L Normal 3.5-5.1 [facility] Comment on above: Performed By: #### L [id number] ####[facility] ([facility])[address] [place] [address] Sodium [Moles/Vol] 134 mmol/L Low 136-145 [facility] Comment on above: Performed By: #### L [id number] ####[facility] ([facility])[address] [place] [address] Urea nitrogen [Mass/Vol] 27 mg/dL High 7-25 [facility] Comment on above: Performed By: #### L [id number] ####[facility] ([facility])[address] [place] [address] UREA NITROGEN/CREATININE (MASS RATIO) IN SER/PLAS 27.6 Normal [facility] Comment on above: Performed By: #### L [id number] ####[facility] ([facility])[address] [place] [address] CBC WITH AUTO DIFFERENTIALon 08-30-2024 Basophils (Bld) [#/Vol] 0.09 10*3/uL Normal 0.00-0.20 [facility] Comment on above: Performed By: #### L [id number] ####[facility] ([facility]ER)[address] [place], [place] [address] Basophils/100 WBC (Bld) 1.0 % Normal 0.0-1.0 [facility] Comment on above: Performed By: #### L [id number] ####[facility] ([facility])[address] [place], [place] [address] Eosinophils (Bld) [#/Vol] 0.54 10*3/uL High 0.00-0.50 [facility] Comment on above: Performed By: #### L [id number] ####[facility] ([facility])[address] [place] [address] Eosinophils/100 WBC (Bld) 5.9 % Normal 0.0-6.0 [facility] Comment on above: Performed By: #### L [id number] ####[facility] ([facility])[address] [place] [address] Erythrocyte distribution width (RBC) [Ratio] 14.9 % Normal 11.5-15.0 [facility] Comment on above: Performed By: #### L [id number] ####[facility] ([facility])[address] [place] [address] ERYTHROCYTE MEAN CORPUSCULAR HEMOGLOBIN CONCENTRATION (G/DL) BY AUTOMATED 31.0 g/dL Low 32.0-35.0 [facility] Comment on above: Performed By: #### L [id number] ####[facility] ([facility])[address] [place] [address] Hematocrit (Bld) [Volume fraction] 50.9 % Normal 39.0-55.0 [facility] Comment on above: Performed By: #### L [id number] ####[facility] ([facility])[address] [place] [address] Hemoglobin (Bld) [Mass/Vol] 15.8 g/dL Normal 13.0-17.0 [facility] Comment on above: Performed By: #### L [id number] ####[facility] ([facility])[address] [place] [address] Immature granulocytes (Bld) [#/Vol] 0.06 10*3/uL Normal 0.00-0.20 [facility] Comment on above: Performed By: #### L [id number] ####[facility] ([facility])[address] [place] [address] Immature granulocytes/100 WBC (Bld) 0.7 % Normal 0.0-1.0 [facility] Comment on above: Performed By: #### L [id number] ####[facility] ([facility])[address] [place] [address] Lymphocytes (Bld) [#/Vol] 1.65 10*3/uL Normal 1.20-4.00 [facility] Comment on above: Performed By: #### L [id number] ####[facility] ([facility])[address] [place] [address] Lymphocytes/100 WBC (Bld) 17.9 % Low 20.0-45.0 [facility] Comment on above: Performed By: #### L [id number] ####[facility] ([facility])[address] [place] [address] MCH (RBC) [Entitic mass] 29.2 pg Normal 27.0-33.0 [facility] Comment on above: Performed By: #### L [id number] ####[facility] ([facility])[address] [place] [address] MCV (RBC) [Entitic vol] 93.9 fL Normal 82.0-98.0 [facility] Comment on above: Performed By: #### L [id number] ####[facility] ([facility])[address] [place] [address] Monocytes (Bld) [#/Vol] 1.05 10*3/uL High 0.10-1.00 [facility] Comment on above: Performed By: #### L [id number] ####[facility] ([facility])[address] [place] [address] Monocytes/100 WBC (Bld) 11.4 % Normal 5.0-12.0 [facility] Comment on above: Performed By: #### L [id number] ####[facility] ([facility])[address] [place] [address] Neutrophils (Bld) [#/Vol] 5.82 10*3/uL Normal 1.60-7.60 [facility] Comment on above: Performed By: #### L [id number] ####[facility] ([facility])[address] [place] [address] Neutrophils/100 WBC (Bld) 63.1 % Normal 40.0-72.0 [facility] Comment on above: Performed By: #### L [id number] ####[facility] ([facility])[address] [place] [address] NRBC (PER 100 WBCS) BY AUTOMATED COUNT 0.0 % Normal 0 [facility] Comment on above: Performed By: #### L [id number] ####[facility] ([facility])[address] [place] [address] PLATELETS (10*3/UL) IN BLOOD AUTOMATED COUNT 298 10*3/uL Normal 150-400 [facility] Comment on above: Performed By: #### L [id number] ####[facility] ([facility] [place] [address] RBC (Bld) [#/Vol] 5.42 10*6/uL Normal 4.20-5.70 [facility] Comment on above: Performed By: #### L [id number] ####[facility] ([facility])[address] [place] [address] WBC (Bld) [#/Vol] 9.21 10*3/uL Normal 4.00-10.60 [facility] Comment on above: Performed By: #### L [id number] ####[facility] ([facility])[address] [place] [address] CONSULTon 08-30-2024 CONSULT Normal [facility] MAGNESIUMon 08-30-2024 Magnesium [Mass/Vol] 1.7 mg/dL Low 1.9-2.7 [facility] Comment on above: Performed By: #### L [id number] ####[facility] ([facility])[address] [place] [address] NURSNOTEon 08-30-2024 NURSNOTE [facility] POCT GLUCOSE METER UNSOLICIT ED RESULTSon 08-30-2024 Glucose [Mass/Vol] 294 mg/dL High 70-105 [facility] Comment on above: Order Comment: Waive d Testing in the ED is performed under the ED CLIA certificate #[id number]. Result Comment: [email or web address] [id number] Value Noted Performed By: #### L [id number] ####[facility] ([facility])[address] [place] [address] Glucose [Mass/Vol] 162 mg/dL High 70-105 [facility] Comment on above: Order Comment: Waive d Testing in the ED is performed under the ED CLIA certificate #[id number]. Result Comment: [email or web address] rbo Performed By: #### L [id number] ####[facility] ([facility])[address] [place] [address] Glucose [Mass/Vol] 193 mg/dL High 70-105 [facility] Comment on above: Order Comment: Waive d Testing in the ED is performed under the ED CLIA certificate #[id number]. Result Comment: abee rbo Performed By: #### L [id number] ####[facility] ([facility])[address] [place] [address] Glucose [Mass/Vol] 235 mg/dL High 70-105 [facility] Comment on above: Order Comment: Waive d Testing in the ED is performed under the ED CLIA certificate #[id number]. Result Comment: [email or web address] [email or web address] Performed By: #### L [id number] ####[facility] ([facility])[address] [place] [address] Glucose [Mass/Vol] 209 mg/dL High 70-105 [facility] Comment on above: Order Comment: Waive d Testing in the ED is performed under the ED CLIA certificate #[id number]. Result Comment: [email or web address] [email or web address] Performed By: #### L [id number] ####[facility] ([facility])[address] [place] [address] BASIC METABOLIC PANELon 02-0 Anion gap [Moles/Vol] 7 mmol/L Normal 7-20 [facility] Comment on above: Performed By: #### L [id number] ####[facility] ([facility])[address] [place] [address] Calcium [Mass/Vol] 10.5 mg/dL High 8.6-10.3 [facility] Comment on above: Performed By: #### L [id number] ####[facility] ([facility])[address] [place] [address] Chloride [Moles/Vol] 93 mmol/L Low 98-107 [facility] Comment on above: Performed By: #### L [id number] ####[facility] ([facility])[address] [place] [address] CO2 [Moles/Vol] 38 mmol/L High 21-31 [facility] Comment on above: Performed By: #### L [id number] ####[facility] ([facility])[address] [place] [address] Creatinine [Mass/Vol] 0.96 mg/dL Normal 0.70-1.30 [facility] Comment on above: Performed By: #### L [id number] ####[facility] ([facility])[address] [place] [address] GLOMERULAR FILTRATION RATE ML/MIN/1.73 SQ M.PREDICTED 87.7 mL/min/1.73m*2 Normal >60.[address] [facility] Comment on above: Result Comment: [facility]???s estimated glomerular filtration rate (eGFR) will [...] of individuals. Performed By: #### L [id number] ####[facility] ([facility])[address] [place] [address] Glucose [Mass/Vol] 182 mg/dL High 70-100 [facility] Comment on above: Performed By: #### L [id number] ####[facility] ([facility])[address] [place] [address] Potassium [Moles/Vol] 4.1 mmol/L Normal 3.5-5.1 [facility] Comment on above: Performed By: #### L [id number] ####[facility] ([facility])[address] [place] [address] Sodium [Moles/Vol] 134 mmol/L Low 136-145 [facility] Comment on above: Performed By: #### L [id number] ####[facility] ([facility])[address] [place] [address] Urea nitrogen [Mass/Vol] 23 mg/dL Normal 7-25 [facility] Comment on above: Performed By: #### L [id number] ####[facility] ([facility])[address] [place] [address] UREA NITROGEN/CREATININE (MASS RATIO) IN SER/PLAS 24.0 Normal [facility] Comment on above: Performed By: #### L [id number] ####[facility] ([facility])[address] [place] [address] CBC WITH AUTO DIFFERENTIALon 08-29-2024 Basophils (Bld) [#/Vol] 0.09 10*3/uL Normal 0.00-0.20 [facility] Comment on above: Performed By: #### L [id number] ####[facility] ([facility])[address] [place] [address] Basophils/100 WBC (Bld) 1.0 % Normal 0.0-1.0 [facility] Comment on above: Performed By: #### L [id number] ####[facility] ([facility])[address] [place] [address] Eosinophils (Bld) [#/Vol] 0.48 10*3/uL Normal 0.00-0.50 [facility] Comment on above: Performed By: #### L [id number] ####[facility] ([facility])[address] [place] [address] Eosinophils/100 WBC (Bld) 5.3 % Normal 0.0-6.0 [facility] Comment on above: Performed By: #### L [id number] ####[facility] ([facility])[address] [place] [address] Erythrocyte distribution width (RBC) [Ratio] 15.0 % Normal 11.5-15.0 [facility] Comment on above: Performed By: #### L [id number] ####[facility] ([facility])[address] [place] [address] ERYTHROCYTE MEAN CORPUSCULAR HEMOGLOBIN CONCENTRATION (G/DL) BY AUTOMATED 30.5 g/dL Low 32.0-35.0 [facility] Comment on above: Performed By: #### L [id number] ####[facility] ([facility])[address] [place] [address] Hematocrit (Bld) [Volume fraction] 51.2 % Normal 39.0-55.0 [facility] Comment on above: Performed By: #### L [id number] ####[facility] ([facility])[address] [place] [address] Hemoglobin (Bld) [Mass/Vol] 15.6 g/dL Normal 13.0-17.0 [facility] Comment on above: Performed By: #### L [id number] ####[facility] (BEAKER)[address] [place] [address] Immature granulocytes (Bld) [#/Vol] 0.07 10*3/uL Normal 0.00-0.20 [facility] Comment on above: Performed By: #### L [id number] ####[facility] (BEAKER)[address] [place] [address] Immature granulocytes/100 WBC (Bld) 0.8 % Normal 0.0-1.0 [facility] Comment on above: Performed By: #### L [id number] ####[facility] (BEAKER)[address] [place] [address] Lymphocytes (Bld) [#/Vol] 1.41 10*3/uL Normal 1.20-4.00 [facility] Comment on above: Performed By: #### L [id number] ####[facility] (BEAKER)[address] [place] [address] Lymphocytes/100 WBC (Bld) 15.7 % Low 20.0-45.0 [facility] Comment on above: Performed By: #### L [id number] ####[facility] (BEAKER)[address] [place] [address] MCH (RBC) [Entitic mass] 29.0 pg Normal 27.0-33.0 [facility] Comment on above: Performed By: #### L [id number] ####[facility] (BEAKER)[address] [place] [address] MCV (RBC) [Entitic vol] 95.2 fL Normal 82.0-98.0 [facility] Comment on above: Performed By: #### L [id number] ####[facility] (BEAKER)[address] [facility] [address] Monocytes (Bld) [#/Vol] 0.82 10*3/uL Normal 0.10-1.00 [facility] Comment on above: Performed By: #### L [id number] ####[facility] ([facility])[address] [place] [address] Monocytes/100 WBC (Bld) 9.1 % Normal 5.0-12.0 [facility] Comment on above: Performed By: #### L [id number] ####[facility] [place] [address] Neutrophils (Bld) [#/Vol] 6.11 10*3/uL Normal 1.60-7.60 [facility] Comment on above: Performed By: #### L [id number] ####[facility] [place] [address] Neutrophils/100 WBC (Bld) 68.1 % Normal 40.0-72.0 [facility] Comment on above: Performed By: #### L [id number] ####[facility] [place] [address] NRBC (PER 100 WBCS) BY AUTOMATED COUNT 0.0 % Normal 0 [facility] Comment on above: Performed By: #### L [id number] ####[facility] [place] [address] PLATELETS (10*3/UL) IN BLOOD AUTOMATED COUNT 262 10*3/uL Normal 150-400 [facility] Comment on above: Performed By: #### L [id number] ####[facility] [place] [address] RBC (Bld) [#/Vol] 5.38 10*6/uL Normal 4.20-5.70 [facility] Comment on above: Performed By: #### L [id number] ####[facility] [place] [address] WBC (Bld) [#/Vol] 8.98 10*3/uL Normal 4.00-10.60 [facility] Comment on above: Performed By: #### L [id number] ####[facility] [place] [address] MAGNESIUMon 08-29-2024 Magnesium [Mass/Vol] 1.7 mg/dL Low 1.9-2.7 [facility] Comment on above: Performed By: #### L [id number] ####[facility] [place] [address] POCT GLUCOSE METER UNSOLICIT ED RESULTSon 08-29-2024 Glucose [Mass/Vol] 284 mg/dL High 70-105 [facility] Comment on above: Order Comment: Waive d Testing in the ED is performed under the ED CLIA certificate #[id number]. Result Comment: sbel air Performed By: #### L [id number] ####[facility] [place] [address] Glucose [Mass/Vol] 259 mg/dL High 70-105 [facility] Comment on above: Order Comment: Waive d Testing in the ED is performed under the ED CLIA certificate #[id number]. Result Comment: aall en70 Performed By: #### L [id number] ####[facility] [place] [address] Glucose [Mass/Vol] 301 mg/dL High 70-105 [facility] Comment on above: Order Comment: Waive d Testing in the ED is performed under the ED CLIA certificate #[id number]. Result Comment: aall en70 Performed By: #### L [id number] ####[facility] [place] [address] Glucose [Mass/Vol] 166 mg/dL High 70-105 [facility] Comment on above: Order Comment: Waive d Testing in the ED is performed under the ED CLIA certificate #[id number]. Result Comment: aall en70 Performed By: #### L [id number] ####[facility] [place] [address] BASIC METABOLIC PANELon 02-0 8-2025 Anion gap [Moles/Vol] 8 mmol/L Normal 7-20 [facility] Comment on above: Performed By: #### L [id number] ####[facility] [place] [address] Calcium [Mass/Vol] 9.8 mg/dL Normal 8.6-10.3 [facility] Comment on above: Performed By: #### L [id number] ####[facility] [place] [address] Chloride [Moles/Vol] 96 mmol/L Low 98-107 [facility] Comment on above: Performed By: #### L [id number] ####[facility])[address] [place] [address] CO2 [Moles/Vol] 37 mmol/L High 21-31 [facility] Comment on above: Performed By: #### L [id number] ####[facility])[address] [place] [address] Creatinine [Mass/Vol] 0.82 mg/dL Normal 0.70-1.30 [facility] Comment on above: Performed By: #### L [id number] ####[facility] ([facility])[address] [place] [address] GLOMERULAR FILTRATION RATE ML/MIN/1.73 SQ M.PREDICTED 97.5 mL/min/1.73m*2 Normal >60.[address] [facility] Comment on above: Result Comment: [facility]???s estimated glomerular filtration rate (eGFR) will [...] of individuals. Performed By: #### L [id number] ####[facility] ([facility])[address] [place] [address] Glucose [Mass/Vol] 183 mg/dL High 70-100 [facility] Comment on above: Performed By: #### L [id number] ####[facility] ([facility])[address] [place] [address] Potassium [Moles/Vol] 3.7 mmol/L Normal 3.5-5.1 [facility] Comment on above: Performed By: #### L [id number] ####[facility] ([facility])[address] [place] [address] Sodium [Moles/Vol] 137 mmol/L Normal 136-145 [facility] Comment on above: Performed By: #### L [id number] ####[facility] [place] [address] Urea nitrogen [Mass/Vol] 17 mg/dL Normal 7-25 [facility] Comment on above: Performed By: #### L [id number] ####[facility] [place] [address] UREA NITROGEN/CREATININE (MASS RATIO) IN SER/PLAS 20.7 Normal [facility] Comment on above: Performed By: #### L [id number] ####[facility] ([facility])[address] [place] [address] CBC WITH AUTO DIFFERENTIALon 08-28-2024 Basophils (Bld) [#/Vol] 0.09 10*3/uL Normal 0.00-0.20 [facility] Comment on above: Performed By: #### L [id number] ####[facility] ([facility] [place] [address] Basophils/100 WBC (Bld) 0.9 % Normal 0.0-1.0 [facility] Comment on above: Performed By: #### L [id number] ####[facility] ([facility])[address] [place] [address] Eosinophils (Bld) [#/Vol] 0.40 10*3/uL Normal 0.00-0.50 [facility] Comment on above: Performed By: #### L [id number] ####[facility] [place] [address] Eosinophils/100 WBC (Bld) 4.2 % Normal 0.0-6.0 [facility] Comment on above: Performed By: #### L [id number] ####[facility] [place] [address] Erythrocyte distribution width (RBC) [Ratio] 14.8 % Normal 11.5-15.0 [facility] Comment on above: Performed By: #### L [id number] ####[facility] [place] [address] ERYTHROCYTE MEAN CORPUSCULAR HEMOGLOBIN CONCENTRATION (G/DL) BY AUTOMATED 30.3 g/dL Low 32.0-35.0 [facility] Comment on above: Performed By: #### L [id number] ####[facility] [place] [address] Hematocrit (Bld) [Volume fraction] 50.9 % Normal 39.0-55.0 [facility] Comment on above: Performed By: #### L [id number] ####[facility] [place] [address] Hemoglobin (Bld) [Mass/Vol] 15.4 g/dL Normal 13.0-17.0 [facility] Comment on above: Performed By: #### L [id number] ####[facility] [place] [address] Immature granulocytes (Bld) [#/Vol] 0.06 10*3/uL Normal 0.00-0.20 [facility] Comment on above: Performed By: #### L [id number] ####[facility] [place] [address] Immature granulocytes/100 WBC (Bld) 0.6 % Normal 0.0-1.0 [facility] Comment on above: Performed By: #### L [id number] ####[facility] [place] [address] Lymphocytes (Bld) [#/Vol] 1.68 10*3/uL Normal 1.20-4.00 [facility] Comment on above: Performed By: #### L [id number] ####[facility] [place] [address] Lymphocytes/100 WBC (Bld) 17.6 % Low 20.0-45.0 [facility] Comment on above: Performed By: #### L [id number] ####[facility] [place] [address] MCH (RBC) [Entitic mass] 29.2 pg Normal 27.0-33.0 [facility] Comment on above: Performed By: #### L [id number] ####[facility] [place] [address] MCV (RBC) [Entitic vol] 96.6 fL Normal 82.0-98.0 [facility] Comment on above: Performed By: #### L [id number] ####[facility] [place] [address] Monocytes (Bld) [#/Vol] 0.99 10*3/uL Normal 0.10-1.00 [facility] Comment on above: Performed By: #### L [id number] ####[facility] [place] [address] Monocytes/100 WBC (Bld) 10.4 % Normal 5.0-12.0 [facility] Comment on above: Performed By: #### L [id number] ####[facility] [place] [address] Neutrophils (Bld) [#/Vol] 6.33 10*3/uL Normal 1.60-7.60 [facility] Comment on above: Performed By: #### L [id number] ####[facility] [place] [address] Neutrophils/100 WBC (Bld) 66.3 % Normal 40.0-72.0 [facility] Comment on above: Performed By: #### L [id number] ####[facility] [place] [address] NRBC (PER 100 WBCS) BY AUTOMATED COUNT 0.0 % Normal 0 [facility] Comment on above: Performed By: #### L [id number] ####[facility] [place] [address] PLATELETS (10*3/UL) IN BLOOD AUTOMATED COUNT 252 10*3/uL Normal 150-400 [facility] Comment on above: Performed By: #### L [id number] ####[facility] [place] [address] RBC (Bld) [#/Vol] 5.27 10*6/uL Normal 4.20-5.70 [facility] Comment on above: Performed By: #### L [id number] ####[facility] [place] [address] WBC (Bld) [#/Vol] 9.55 10*3/uL Normal 4.00-10.60 [facility] Comment on above: Performed By: #### L [id number] ####[facility] [place] [address] MAGNESIUMon 08-28-2024 Magnesium [Mass/Vol] 1.8 mg/dL Low 1.9-2.7 [facility] Comment on above: Performed By: #### L [id number] ####[facility] [place] [address] NURSNOTEon 08-28-2024 NURSNOTE Normal [facility] POCT GLUCOSE METER UNSOLICIT ED RESULTSon 08-28-2024 Glucose [Mass/Vol] 258 mg/dL High 70-105 [facility] Comment on above: Order Comment: Waive d Testing in the ED is performed under the ED CLIA certificate #[id number]. Result Comment: amcn eal2 Performed By: #### L [id number] ####[facility] [place] [address] Glucose [Mass/Vol] 177 mg/dL High 70-105 [facility] Comment on above: Order Comment: Waive d Testing in the ED is performed under the ED CLIA certificate #[id number]. Result Comment: aall en70 Performed By: #### L [id number] ####[facility] [place] [address] Glucose [Mass/Vol] 242 mg/dL High 70-105 [facility] Comment on above: Order Comment: Waive d Testing in the ED is performed under the ED CLIA certificate #[id number]. Result Comment: aall en70 Performed By: #### L [id number] ####[facility] [place] [address] Glucose [Mass/Vol] 200 mg/dL High 70-105 [facility] Comment on above: Order Comment: Waive d Testing in the ED is performed under the ED CLIA certificate #[id number]. Result Comment: aall en70 Performed By: #### L [id number] ####[facility] [place] [address] 30on 08-27-2024 30 Normal [facility] BASIC METABOLIC PANELon -0 Anion gap [Moles/Vol] 6 mmol/L Low 7-20 [facility] Comment on above: Performed By: #### L [id number] ####[facility] [place] [address] Calcium [Mass/Vol] 9.8 mg/dL Normal 8.6-10.3 [facility] Comment on above: Performed By: #### L [id number] ####[facility] [place] [address] Chloride [Moles/Vol] 97 mmol/L Low 98-107 [facility] Comment on above: Performed By: #### L [id number] ####[facility] [place] [address] CO2 [Moles/Vol] 41 mmol/L Critically high 21-31 [facility] Comment on above: Performed By: #### L [id number] ####[facility] [place] [address] Creatinine [Mass/Vol] 0.81 mg/dL Normal 0.70-1.30 [facility] Comment on above: Performed By: #### L [id number] ####[facility] [place] [address] GLOMERULAR FILTRATION RATE ML/MIN/1.73 SQ M.PREDICTED 97.8 mL/min/1.73m*2 Normal >60.[address] [facility] Comment on above: Result Comment: [facility]???s estimated glomerular filtration rate (eGFR) will [...] of individuals. Performed By: #### L [id number] ####[facility] ([facility])[address] [place] [address] Glucose [Mass/Vol] 187 mg/dL High 70-100 [facility] Comment on above: Performed By: #### L [id number] ####[facility] ([facility])[address] [place] [address] Potassium [Moles/Vol] 3.5 mmol/L Normal 3.5-5.1 [facility] Comment on above: Performed By: #### L [id number] ####[facility] [facility] [place] [address] Sodium [Moles/Vol] 140 mmol/L Normal 136-145 [facility] Comment on above: Performed By: #### L [id number] ####[facility] [place] [address] Urea nitrogen [Mass/Vol] 16 mg/dL Normal 7-25 [facility] Comment on above: Performed By: #### L [id number] ####[facility] [place] [address] UREA NITROGEN/CREATININE (MASS RATIO) IN SER/PLAS 19.8 Normal [facility] Comment on above: Performed By: #### L [id number] ####[facility] [place] [address] CBC WITH AUTO DIFFERENTIALon 08-27-2024 Basophils (Bld) [#/Vol] 0.06 10*3/uL Normal 0.00-0.20 [facility] Comment on above: Performed By: #### L [id number] ####[facility] [place] [address] Basophils/100 WBC (Bld) 0.7 % Normal 0.0-1.0 [facility] Comment on above: Performed By: #### L [id number] ####[facility] [place] [address] Eosinophils (Bld) [#/Vol] 0.38 10*3/uL Normal 0.00-0.50 [facility] Comment on above: Performed By: #### L [id number] ####[facility] [place] [address] Eosinophils/100 WBC (Bld) 4.7 % Normal 0.0-6.0 [facility] Comment on above: Performed By: #### L [id number] ####[facility] [place] [address] Erythrocyte distribution width (RBC) [Ratio] 14.6 % Normal 11.5-15.0 [facility] Comment on above: Performed By: #### L [id number] ####[facility] ([facility] [place] [address] ERYTHROCYTE MEAN CORPUSCULAR HEMOGLOBIN CONCENTRATION (G/DL) BY AUTOMATED 29.7 g/dL Low 32.0-35.0 [facility] Comment on above: Performed By: #### L [id number] ####[facility] [place] [address] Hematocrit (Bld) [Volume fraction] 49.5 % Normal 39.0-55.0 [facility] Comment on above: Performed By: #### L [id number] ####[facility] [place] [address] Hemoglobin (Bld) [Mass/Vol] 14.7 g/dL Normal 13.0-17.0 [facility] Comment on above: Performed By: #### L [id number] ####[facility] [place] [address] Immature granulocytes (Bld) [#/Vol] 0.04 10*3/uL Normal 0.00-0.20 [facility] Comment on above: Performed By: #### L [id number] ####[facility] [place] [address] Immature granulocytes/100 WBC (Bld) 0.5 % Normal 0.0-1.0 [facility] Comment on above: Performed By: #### L [id number] ####[facility] [place] [address] Lymphocytes (Bld) [#/Vol] 1.42 10*3/uL Normal 1.20-4.00 [facility] Comment on above: Performed By: #### L [id number] ####[facility] [place] [address] Lymphocytes/100 WBC (Bld) 17.7 % Low 20.0-45.0 [facility] Comment on above: Performed By: #### L [id number] ####[facility] [place] [address] MCH (RBC) [Entitic mass] 28.9 pg Normal 27.0-33.0 [facility] Comment on above: Performed By: #### L [id number] ####[facility] [place] [address] MCV (RBC) [Entitic vol] 97.4 fL Normal 82.0-98.0 [facility] Comment on above: Performed By: #### L [id number] ####[facility] [place] [address] Monocytes (Bld) [#/Vol] 0.92 10*3/uL Normal 0.10-1.00 [facility] Comment on above: Performed By: #### L [id number] ####[facility] [place] [address] Monocytes/100 WBC (Bld) 11.5 % Normal 5.0-12.0 [facility] Comment on above: Performed By: #### L [id number] ####[facility] [place] [address] Neutrophils (Bld) [#/Vol] 5.19 10*3/uL Normal 1.60-7.60 [facility] Comment on above: Performed By: #### L [id number] ####[facility] [place] [address] Neutrophils/100 WBC (Bld) 64.9 % Normal 40.0-72.0 [facility] Comment on above: Performed By: #### L [id number] ####[facility] [place] [address] NRBC (PER 100 WBCS) BY AUTOMATED COUNT 0.0 % Normal 0 [facility] Comment on above: Performed By: #### L [id number] ####[facility] [place] [address] PLATELETS (10*3/UL) IN BLOOD AUTOMATED COUNT 209 10*3/uL Normal 150-400 [facility] Comment on above: Performed By: #### L [id number] ####[facility] [place] [address] RBC (Bld) [#/Vol] 5.08 10*6/uL Normal 4.20-5.70 [facility] Comment on above: Performed By: #### L [id number] ####[facility] [place] [address] WBC (Bld) [#/Vol] 8.01 10*3/uL Normal 4.00-10.60 [facility] Comment on above: Performed By: #### L [id number] ####[facility] [place] [address] MAGNESIUMon 08-27-2024 Magnesium [Mass/Vol] 1.6 mg/dL Low 1.9-2.7 [facility] Comment on above: Performed By: #### L [id number] ####[facility] [place] [address] POCT GLUCOSE METER UNSOLICIT ED RESULTSon 08-27-2024 Glucose [Mass/Vol] 144 mg/dL High 70-105 [facility] Comment on above: Order Comment: Waive d Testing in the ED is performed under the ED CLIA certificate #[id number]. Result Comment: droc kol Performed By: #### L [id number] ####[facility] [place] [address] Glucose [Mass/Vol] 204 mg/dL High 70-105 [facility] Comment on above: Order Comment: Waive d Testing in the ED is performed under the ED CLIA certificate #[id number]. Result Comment: ndub ois3 Performed By: #### L [id number] ####[facility])[address] [place] [address] Glucose [Mass/Vol] 230 mg/dL High 70-105 [facility] Comment on above: Order Comment: Waive d Testing in the ED is performed under the ED CLIA certificate #[id number]. Result Comment: jspr [email or web address] Performed By: #### L [id number] ####[facility] ([facility] [place] [address] Glucose [Mass/Vol] 174 mg/dL High 70-105 [facility] Comment on above: Order Comment: Waive d Testing in the ED is performed under the ED CLIA certificate #[id number]. Result Comment: ndub ois3 Performed By: #### L [id number] ####[facility] [place] [address] BASIC METABOLIC PANELon 02-0 Anion gap [Moles/Vol] 9 mmol/L Normal 7-20 [facility] Comment on above: Performed By: #### L [id number] ####[facility] [place] [address] Calcium [Mass/Vol] 9.4 mg/dL Normal 8.6-10.3 [facility] Comment on above: Performed By: #### L [id number] ####[facility] [place] [address] Chloride [Moles/Vol] 100 mmol/L Normal 98-107 [facility] Comment on above: Performed By: #### L [id number] ####[facility])[address] [place] [address] CO2 [Moles/Vol] 36 mmol/L High 21-31 [facility] Comment on above: Performed By: #### L [id number] ####[facility])[address] [place] [address] Creatinine [Mass/Vol] 0.78 mg/dL Normal 0.70-1.30 [facility] Comment on above: Performed By: #### L [id number] ####[facility] [place] [address] GLOMERULAR FILTRATION RATE ML/MIN/1.73 SQ M.PREDICTED 99.0 mL/min/1.73m*2 Normal >60.[address] [facility] Comment on above: Result Comment: [facility]???s estimated glomerular filtration rate (eGFR) will [...] of individuals. Performed By: #### L [id number] ####[facility] [place] [address] Glucose [Mass/Vol] 156 mg/dL High 70-100 [facility] Comment on above: Performed By: #### L [id number] ####[facility] [place] [address] Potassium [Moles/Vol] 3.5 mmol/L Normal 3.5-5.1 [facility] Comment on above: Performed By: #### L [id number] ####[facility] [place] [address] Sodium [Moles/Vol] 141 mmol/L Normal 136-145 [facility] Comment on above: Performed By: #### L [id number] ####[facility] [place] [address] Urea nitrogen [Mass/Vol] 17 mg/dL Normal 7-25 [facility] Comment on above: Performed By: #### L [id number] ####[facility] [place] [address] UREA NITROGEN/CREATININE (MASS RATIO) IN SER/PLAS 21.8 Normal [facility] Comment on above: Performed By: #### L [id number] ####[facility] ([facility])[address] [place] [address] CBC WITH AUTO DIFFERENTIALon 08-26-2024 Basophils (Bld) [#/Vol] 0.06 10*3/uL Normal 0.00-0.20 [facility] Comment on above: Performed By: #### L [id number] ####[facility] [place] [address] Basophils/100 WBC (Bld) 0.8 % Normal 0.0-1.0 [facility] Comment on above: Performed By: #### L [id number] ####[facility] [place] [address] Eosinophils (Bld) [#/Vol] 0.39 10*3/uL Normal 0.00-0.50 [facility] Comment on above: Performed By: #### L [id number] ####[facility] [place] [address] Eosinophils/100 WBC (Bld) 5.4 % Normal 0.0-6.0 [facility] Comment on above: Performed By: #### L [id number] ####[facility] [place] [address] Erythrocyte distribution width (RBC) [Ratio] 14.7 % Normal 11.5-15.0 [facility] Comment on above: Performed By: #### L [id number] ####[facility] ([facility] [place] [address] ERYTHROCYTE MEAN CORPUSCULAR HEMOGLOBIN CONCENTRATION (G/DL) BY AUTOMATED 30.4 g/dL Low 32.0-35.0 [facility] Comment on above: Performed By: #### L [id number] ####[facility] ([facility])[address] [place] [address] Hematocrit (Bld) [Volume fraction] 49.0 % Normal 39.0-55.0 [facility] Comment on above: Performed By: #### L [id number] ####[facility] ([facility])[address] [place] [address] Hemoglobin (Bld) [Mass/Vol] 14.9 g/dL Normal 13.0-17.0 [facility] Comment on above: Performed By: #### L [id number] ####[facility] ([facility])[address] [place] [address] Immature granulocytes (Bld) [#/Vol] 0.03 10*3/uL Normal 0.00-0.20 [facility] Comment on above: Performed By: #### L [id number] ####[facility] ([facility])[address] [place] [address] Immature granulocytes/100 WBC (Bld) 0.4 % Normal 0.0-1.0 [facility] Comment on above: Performed By: #### L [id number] ####[facility] ([facility])[address] [place] [address] Lymphocytes (Bld) [#/Vol] 1.21 10*3/uL Normal 1.20-4.00 [facility] Comment on above: Performed By: #### L [id number] ####[facility] ([facility])[address] [place] [address] Lymphocytes/100 WBC (Bld) 16.7 % Low 20.0-45.0 [facility] Comment on above: Performed By: #### L [id number] ####[facility] ([facility])[address] [place] [address] MCH (RBC) [Entitic mass] 29.2 pg Normal 27.0-33.0 [facility] Comment on above: Performed By: #### L [id number] ####[facility] ([facility])[address] [place] [address] MCV (RBC) [Entitic vol] 96.1 fL Normal 82.0-98.0 [facility] Comment on above: Performed By: #### L [id number] ####[facility] ([facility])[address] [place] [address] Monocytes (Bld) [#/Vol] 0.86 10*3/uL Normal 0.10-1.00 [facility] Comment on above: Performed By: #### L [id number] ####[facility] ([facility])[address] [place] [address] Monocytes/100 WBC (Bld) 11.9 % Normal 5.0-12.0 [facility] Comment on above: Performed By: #### L [id number] ####[facility] ([facility])[address] [place] [address] Neutrophils (Bld) [#/Vol] 4.70 10*3/uL Normal 1.60-7.60 [facility] Comment on above: Performed By: #### L [id number] ####[facility] ([facility])[address] [place] [address] Neutrophils/100 WBC (Bld) 64.8 % Normal 40.0-72.0 [facility] Comment on above: Performed By: #### L [id number] ####[facility] ([facility])[address] [place] [address] NRBC (PER 100 WBCS) BY AUTOMATED COUNT 0.0 % Normal 0 [facility] Comment on above: Performed By: #### L [id number] ####[facility] ([facility])[address] [place] [address] PLATELETS (10*3/UL) IN BLOOD AUTOMATED COUNT 208 10*3/uL Normal 150-400 [facility] Comment on above: Performed By: #### L [id number] ####[facility] ([facility])[address] [place] [address] RBC (Bld) [#/Vol] 5.10 10*6/uL Normal 4.20-5.70 [facility] Comment on above: Performed By: #### L [id number] ####[facility] ([facility])[address] [place] [address] WBC (Bld) [#/Vol] 7.25 10*3/uL Normal 4.00-10.60 [facility] Comment on above: Performed By: #### L [id number] ####[facility] ([facility])[address] [place] [address] MAGNESIUMon 08-26-2024 Magnesium [Mass/Vol] 1.8 mg/dL Low 1.9-2.7 [facility] Comment on above: Performed By: #### L [id number] ####[facility] ([facility])[address] [place] [address] POCT GLUCOSE METER UNSOLICIT ED RESULTSon 08-26-2024 Glucose [Mass/Vol] 246 mg/dL High 70-105 [facility] Comment on above: Order Comment: Waive d Testing in the ED is performed under the ED CLIA certificate #[id number]. Result Comment: [email or web address] Performed By: #### L [id number] ####[facility] ([facility])[address] [place] [address] Glucose [Mass/Vol] 204 mg/dL High 70-105 [facility] Comment on above: Order Comment: Waive d Testing in the ED is performed under the ED CLIA certificate #[id number]. Result Comment: [email or web address] Performed By: #### L [id number] ####[facility] ([facility])[address] [place] [address] Glucose [Mass/Vol] 219 mg/dL High 70-105 [facility] Comment on above: Order Comment: Waive d Testing in the ED is performed under the ED CLIA certificate #[id number]. Result Comment: [email or web address] [email or web address] Performed By: #### L [id number] ####[facility] ([facility] [place] [address] Glucose [Mass/Vol] 163 mg/dL High 70-105 [facility] Comment on above: Order Comment: Waive d Testing in the ED is performed under the ED CLIA certificate #[id number]. Result Comment: [email or web address] Performed By: #### L [id number] ####[facility] ([facility])[address] [place] [address] 30on 08-25-2024 30 Normal [facility] BASIC METABOLIC PANELon Anion gap [Moles/Vol] 10 mmol/L Normal 7-20 [facility] Comment on above: Performed By: #### L [id number] ####[facility] ([facility])[address] [place] [address] Calcium [Mass/Vol] 9.5 mg/dL Normal 8.6-10.3 [facility] Comment on above: Performed By: #### L [id number] ####[facility] ([facility])[address] [place] [address] Chloride [Moles/Vol] 97 mmol/L Low 98-107 [facility] Comment on above: Performed By: #### L [id number] ####[facility] ([facility])[address] [place] [address] CO2 [Moles/Vol] 34 mmol/L High 21-31 [facility] Comment on above: Performed By: #### L [id number] ####[facility] ([facility])[address] [place] [address] Creatinine [Mass/Vol] 0.87 mg/dL Normal 0.70-1.30 [facility] Comment on above: Performed By: #### L [id number] ####[facility] ([facility])[address] [place] [address] GLOMERULAR FILTRATION RATE ML/MIN/1.73 SQ M.PREDICTED 95.8 mL/min/1.73m*2 Normal >60.[address] [facility] Comment on above: Result Comment: [facility]???s estimated glomerular filtration rate (eGFR) will [...] of individuals. Performed By: #### L [id number] ####[facility] ([facility])[address] [place] [address] Glucose [Mass/Vol] 178 mg/dL High 70-100 [facility] Comment on above: Performed By: #### L [id number] ####[facility] ([facility] [place] [address] Potassium [Moles/Vol] 3.5 mmol/L Normal 3.5-5.1 [facility] Comment on above: Performed By: #### L [id number] ####[facility] ([facility])[address] [place] [address] Sodium [Moles/Vol] 137 mmol/L Normal 136-145 [facility] Comment on above: Performed By: #### L [id number] ####[facility] ([facility])[address] [place] [address] Urea nitrogen [Mass/Vol] 20 mg/dL Normal 7-25 [facility] Comment on above: Performed By: #### L [id number] ####[facility] ([facility] [place] [address] UREA NITROGEN/CREATININE (MASS RATIO) IN SER/PLAS 23.0 Normal [facility] Comment on above: Performed By: #### L [id number] ####[facility] ([facility])[address] [place] [address] CBC WITH AUTO DIFFERENTIALon 08-25-2024 Basophils (Bld) [#/Vol] 0.04 10*3/uL Normal 0.00-0.20 [facility] Comment on above: Performed By: #### L [id number] ####[facility] ([facility])[address] [place] [address] Basophils/100 WBC (Bld) 0.6 % Normal 0.0-1.0 [facility] Comment on above: Performed By: #### L [id number] ####[facility] ([facility])[address] [place] [address] Eosinophils (Bld) [#/Vol] 0.22 10*3/uL Normal 0.00-0.50 [facility] Comment on above: Performed By: #### L [id number] ####[facility] ([facility])[address] [place] [address] Eosinophils/100 WBC (Bld) 3.1 % Normal 0.0-6.0 [facility] Comment on above: Performed By: #### L [id number] ####[facility] ([facility])[address] [place] [address] Erythrocyte distribution width (RBC) [Ratio] 14.6 % Normal 11.5-15.0 [facility] Comment on above: Performed By: #### L [id number] ####[facility] ([facility])[address] [place] [address] ERYTHROCYTE MEAN CORPUSCULAR HEMOGLOBIN CONCENTRATION (G/DL) BY AUTOMATED 30.6 g/dL Low 32.0-35.0 [facility] Comment on above: Performed By: #### L [id number] ####[facility] ([facility])[address] [place] [address] Hematocrit (Bld) [Volume fraction] 49.4 % Normal 39.0-55.0 [facility] Comment on above: Performed By: #### L [id number] ####[facility] ([facility])[address] [place] [address] Hemoglobin (Bld) [Mass/Vol] 15.1 g/dL Normal 13.0-17.0 [facility] Comment on above: Performed By: #### L [id number] ####[facility] ([facility])[address] [place] [address] Immature granulocytes (Bld) [#/Vol] 0.04 10*3/uL Normal 0.00-0.20 [facility] Comment on above: Performed By: #### L [id number] ####[facility] ([facility])[address] [place] [address] Immature granulocytes/100 WBC (Bld) 0.6 % Normal 0.0-1.0 [facility] Comment on above: Performed By: #### L [id number] ####[facility] ([facility])[address] [place] [address] Lymphocytes (Bld) [#/Vol] 1.08 10*3/uL Low 1.20-4.00 [facility] Comment on above: Performed By: #### L [id number] ####[facility] ([facility])[address] [place] [address] Lymphocytes/100 WBC (Bld) 15.1 % Low 20.0-45.0 [facility] Comment on above: Performed By: #### L [id number] ####[facility] ([facility])[address] [place] [address] MCH (RBC) [Entitic mass] 28.9 pg Normal 27.0-33.0 [facility] Comment on above: Performed By: #### L [id number] ####[facility] ([facility])[address] [place] [address] MCV (RBC) [Entitic vol] 94.6 fL Normal 82.0-98.0 [facility] Comment on above: Performed By: #### L [id number] ####[facility] ([facility])[address] [place] [address] Monocytes (Bld) [#/Vol] 0.94 10*3/uL Normal 0.10-1.00 [facility] Comment on above: Performed By: #### L [id number] ####[facility] ([facility])[address] [place] [address] Monocytes/100 WBC (Bld) 13.1 % High 5.0-12.0 [facility] Comment on above: Performed By: #### L [id number] ####[facility] ([facility])[address] [place] [address] Neutrophils (Bld) [#/Vol] 4.85 10*3/uL Normal 1.60-7.60 [facility] Comment on above: Performed By: #### L [id number] ####[facility] ([facility])[address] [place] [address] Neutrophils/100 WBC (Bld) 67.5 % Normal 40.0-72.0 [facility] Comment on above: Performed By: #### L [id number] ####[facility] ([facility] [place] [address] NRBC (PER 100 WBCS) BY AUTOMATED COUNT 0.0 % Normal 0 [facility] Comment on above: Performed By: #### L [id number] ####[facility] ([facility] [place] [address] PLATELETS (10*3/UL) IN BLOOD AUTOMATED COUNT 200 10*3/uL Normal 150-400 [facility] Comment on above: Performed By: #### L [id number] ####[facility] ([facility] [place] [address] RBC (Bld) [#/Vol] 5.22 10*6/uL Normal 4.20-5.70 [facility] Comment on above: Performed By: #### L [id number] ####[facility] ([facility])[address] [place] [address] WBC (Bld) [#/Vol] 7.17 10*3/uL Normal 4.00-10.60 [facility] Comment on above: Performed By: #### L [id number] ####[facility] ([facility])[address] [place] [address] MAGNESIUMon 02-05-2025 Magnesium [Mass/Vol] 1.6 mg/dL Low 1.9-2.7 [facility] Comment on above: Performed By: #### L [id number] ####[facility] ([facility] [place] [address] POCT GLUCOSE METER UNSOLICIT ED RESULTSon 08-25-2024 Glucose [Mass/Vol] 154 mg/dL High 70-105 [facility] Comment on above: Order Comment: Waive d Testing in the ED is performed under the ED CLIA certificate #[id number]. Result Comment: [email or web address] Performed By: #### L [id number] ####[facility] [place] [address] Glucose [Mass/Vol] 196 mg/dL High 70-105 [facility] Comment on above: Order Comment: Waive d Testing in the ED is performed under the ED CLIA certificate #[id number]. Result Comment: ndub [email or web address] Performed By: #### L [id number] ####[facility] ([facility] [place] [address] Glucose [Mass/Vol] 313 mg/dL High 70-105 [facility] Comment on above: Order Comment: Waive d Testing in the ED is performed under the ED CLIA certificate #[id number]. Result Comment: ndub [email or web address] Performed By: #### L [id number] ####[facility] ([facility] [place] [address] Glucose [Mass/Vol] 164 mg/dL High 70-105 [facility] Comment on above: Order Comment: Waive d Testing in the ED is performed under the ED CLIA certificate #[id number]. Result Comment: ndub [email or web address] Performed By: #### L [id number] ####[facility] ([facility] [place] [address] 30on 08-24-2024 30 Normal [facility] ANTI-XA (HEPARIN LEVEL)on HEPARIN UNFRACTIONATED (U/ML) IN PPP BY CHROMOGENIC METHOD 0.21 IU/mL Low 0.3-0.7 [facility] Comment on above: Result Comment: Tatyana roxaban and Apixaban will interfere with the anti Xa assay used to monitor UFH and LMWH. Performed By: #### L [id number] ####[facility] ([facility] [place] [address] B-TYPE NATRIURETIC PEPTIDEon 08-24-2024 Natriuretic peptide B (Bld) [Mass/Vol] 143 pg/mL High 0-100 [facility] Comment on above: Performed By: #### L [id number] ####[facility] ([facility] [place] [address] BASIC METABOLIC PANELon Anion gap [Moles/Vol] 11 mmol/L Normal 7-20 [facility] Comment on above: Performed By: #### L [id number] ####[facility] [place] [address] Calcium [Mass/Vol] 9.7 mg/dL Normal 8.6-10.3 [facility] Comment on above: Performed By: #### L [id number] ####[facility] ([facility] [place] [address] Chloride [Moles/Vol] 98 mmol/L Normal 98-107 [facility] Comment on above: Performed By: #### L [id number] ####[facility] [place] [address] CO2 [Moles/Vol] 33 mmol/L High 21-31 [facility] Comment on above: Performed By: #### L [id number] ####[facility] [place] [address] Creatinine [Mass/Vol] 0.93 mg/dL Normal 0.70-1.30 [facility] Comment on above: Performed By: #### L [id number] ####[facility] [place] [address] GLOMERULAR FILTRATION RATE ML/MIN/1.73 SQ M.PREDICTED 91.1 mL/min/1.73m*2 Normal >60.[address] [facility] Comment on above: Result Comment: [facility]???s estimated glomerular filtration rate (eGFR) will [...] of individuals. Performed By: #### L [id number] ####[facility] [place] [address] Glucose [Mass/Vol] 166 mg/dL High 70-100 [facility] Comment on above: Performed By: #### L [id number] ####[facility] [place] [address] Potassium [Moles/Vol] 3.8 mmol/L Normal 3.5-5.1 [facility] Comment on above: Performed By: #### L [id number] ####[facility] [place] [address] Sodium [Moles/Vol] 138 mmol/L Normal 136-145 [facility] Comment on above: Performed By: #### L [id number] ####[facility] ([facility])[address] [place] [address] Urea nitrogen [Mass/Vol] 23 mg/dL Normal 7-25 [facility] Comment on above: Performed By: #### L [id number] ####[facility] [place] [address] UREA NITROGEN/CREATININE (MASS RATIO) IN SER/PLAS 24.7 Normal [facility] Comment on above: Performed By: #### L [id number] ####[facility] [place] [address] Anion gap [Moles/Vol] 10 mmol/L Normal 7-20 [facility] Comment on above: Performed By: #### L [id number] ####[facility] ([facility])[address] [place] [address] Calcium [Mass/Vol] 9.4 mg/dL Normal 8.6-10.3 [facility] Comment on above: Performed By: #### L [id number] ####[facility] ([facility])[address] [place] [address] Chloride [Moles/Vol] 98 mmol/L Normal 98-107 [facility] Comment on above: Performed By: #### L [id number] ####[facility] ([facility])[address] [place] [address] CO2 [Moles/Vol] 33 mmol/L High 21-31 [facility] Comment on above: Performed By: #### L [id number] ####[facility] [place] [address] Creatinine [Mass/Vol] 0.88 mg/dL Normal 0.70-1.30 [facility] Comment on above: Performed By: #### L [id number] ####[facility] [place] [address] GLOMERULAR FILTRATION RATE ML/MIN/1.73 SQ M.PREDICTED 95.4 mL/min/1.73m*2 Normal >60.[address] [facility] Comment on above: Result Comment: [facility]???s estimated glomerular filtration rate (eGFR) will [...] of individuals. Performed By: #### L [id number] ####[facility] ([facility] [place] [address] Glucose [Mass/Vol] 132 mg/dL High 70-100 [facility] Comment on above: Performed By: #### L [id number] ####[facility] ([facility] [place] [address] Potassium [Moles/Vol] 2.9 mmol/L Invalid Interpretation Code 3.5-5.1 [facility] Comment on above: Performed By: #### L [id number] ####[facility] [place] [address] Sodium [Moles/Vol] 138 mmol/L Normal 136-145 [facility] Comment on above: Performed By: #### L [id number] ####[facility] [place] [address] Urea nitrogen [Mass/Vol] 24 mg/dL Normal 7-25 [facility] Comment on above: Performed By: #### L [id number] ####[facility] [place] [address] UREA NITROGEN/CREATININE (MASS RATIO) IN SER/PLAS 27.3 Normal [facility] Comment on above: Performed By: #### L [id number] ####[facility] ([facility] [place] [address] CBC WITH AUTO DIFFERENTIALon 08-24-2024 Basophils (Bld) [#/Vol] 0.06 10*3/uL Normal 0.00-0.20 [facility] Comment on above: Performed By: #### L [id number] ####[facility] ([facility] [place] [address] Basophils/100 WBC (Bld) 0.8 % Normal 0.0-1.0 [facility] Comment on above: Performed By: #### L [id number] ####[facility] [place] [address] Eosinophils (Bld) [#/Vol] 0.46 10*3/uL Normal 0.00-0.50 [facility] Comment on above: Performed By: #### L [id number] ####[facility] ([facility])[address] [place] [address] Eosinophils/100 WBC (Bld) 5.9 % Normal 0.0-6.0 [facility] Comment on above: Performed By: #### L [id number] ####[facility] ([facility])[address] [place] [address] Erythrocyte distribution width (RBC) [Ratio] 14.7 % Normal 11.5-15.0 [facility] Comment on above: Performed By: #### L [id number] ####[facility] ([facility])[address] [place] [address] ERYTHROCYTE MEAN CORPUSCULAR HEMOGLOBIN CONCENTRATION (G/DL) BY AUTOMATED 31.3 g/dL Low 32.0-35.0 [facility] Comment on above: Performed By: #### L [id number] ####[facility] ([facility])[address] [place] [address] Hematocrit (Bld) [Volume fraction] 50.8 % Normal 39.0-55.0 [facility] Comment on above: Performed By: #### L [id number] ####[facility] ([facility])[address] [place] [address] Hemoglobin (Bld) [Mass/Vol] 15.9 g/dL Normal 13.0-17.0 [facility] Comment on above: Performed By: #### L [id number] ####[facility] ([facility])[address] [place] [address] Immature granulocytes (Bld) [#/Vol] 0.04 10*3/uL Normal 0.00-0.20 [facility] Comment on above: Performed By: #### L [id number] ####[facility] ([facility])[address] [place] [address] Immature granulocytes/100 WBC (Bld) 0.5 % Normal 0.0-1.0 [facility] Comment on above: Performed By: #### L [id number] ####[facility] [place] [address] Lymphocytes (Bld) [#/Vol] 1.23 10*3/uL Normal 1.20-4.00 [facility] Comment on above: Performed By: #### L [id number] ####[facility] [place] [address] Lymphocytes/100 WBC (Bld) 15.8 % Low 20.0-45.0 [facility] Comment on above: Performed By: #### L [id number] ####[facility] [place] [address] MCH (RBC) [Entitic mass] 29.1 pg Normal 27.0-33.0 [facility] Comment on above: Performed By: #### L [id number] ####[facility] ([facility])[address] [place] [address] MCV (RBC) [Entitic vol] 92.9 fL Normal 82.0-98.0 [facility] Comment on above: Performed By: #### L [id number] ####[facility] ([facility])[address] [place] [address] Monocytes (Bld) [#/Vol] 0.96 10*3/uL Normal 0.10-1.00 [facility] Comment on above: Performed By: #### L [id number] ####[facility] ([facility])[address] [place] [address] Monocytes/100 WBC (Bld) 12.4 % High 5.0-12.0 [facility] Comment on above: Performed By: #### L [id number] ####[facility] ([facility])[address] [place] [address] Neutrophils (Bld) [#/Vol] 5.02 10*3/uL Normal 1.60-7.60 [facility] Comment on above: Performed By: #### L [id number] ####[facility] ([facility])[address] [place] [address] Neutrophils/100 WBC (Bld) 64.6 % Normal 40.0-72.0 [facility] Comment on above: Performed By: #### L [id number] ####[facility] ([facility])[address] [place] [address] NRBC (PER 100 WBCS) BY AUTOMATED COUNT 0.0 % Normal 0 [facility] Comment on above: Performed By: #### L [id number] ####[facility] ([facility])[address] [place] [address] PLATELETS (10*3/UL) IN BLOOD AUTOMATED COUNT 194 10*3/uL Normal 150-400 [facility] Comment on above: Performed By: #### L [id number] ####[facility] ([facility])[address] [place] [address] RBC (Bld) [#/Vol] 5.47 10*6/uL Normal 4.20-5.70 [facility] Comment on above: Performed By: #### L [id number] ####[facility] ([facility])[address] [place] [address] WBC (Bld) [#/Vol] 7.77 10*3/uL Normal 4.00-10.60 [facility] Comment on above: Performed By: #### L [id number] ####[facility] [place] [address] CONSULTon 08-24-2024 CONSULT Normal [facility] CT HEAD WO IV CONTRASTon CT HEAD WO IV CONTRAST Invalid Interpretation Code [facility] CTA CHEST W IV CONTRASTon CTA CHEST W IV CONTRAST Normal [facility] MAGNESIUMon 08-24-2024 Magnesium [Mass/Vol] 1.7 mg/dL Low 1.9-2.7 [facility] Comment on above: Performed By: #### L [id number] ####[facility] [place] [address] Magnesium [Mass/Vol] 1.4 mg/dL Low 1.9-2.7 [facility] Comment on above: Performed By: #### L [id number] ####[facility] [place] [address] NURSNOTEon 08-24-2024 NURSNOTE Normal [facility] NURSNOTE Normal [facility] PHOSPHORUSon 08-24-2024 Magnesium [Mass/Vol] 3.4 mg/dL Normal 2.5-5.0 [facility] Comment on above: Performed By: #### L [id number] ####[facility] [place] [address] POCT GLUCOSE METER UNSOLICIT ED RESULTSon 08-24-2024 Glucose [Mass/Vol] 182 mg/dL High 70-105 [facility] Comment on above: Order Comment: Waive d Testing in the ED is performed under the ED CLIA certificate #[id number]. Result Comment: droc kol Performed By: #### L [id number] ####[facility] [place] [address] Glucose [Mass/Vol] 166 mg/dL High 70-105 [facility] Comment on above: Order Comment: Waive d Testing in the ED is performed under the ED CLIA certificate #[id number]. Result Comment: sbel cad Performed By: #### L [id number] ####[facility] [place] [address] Glucose [Mass/Vol] 150 mg/dL High 70-105 [facility] Comment on above: Order Comment: Waive d Testing in the ED is performed under the ED CLIA certificate #[id number]. Result Comment: besc obe Performed By: #### L [id number] ####[facility] [place] [address] Glucose [Mass/Vol] 136 mg/dL High 70-105 [facility] Comment on above: Order Comment: Waive d Testing in the ED is performed under the ED CLIA certificate #[id number]. Result Comment: swey [id number] Value Noted Performed By: #### L [id number] ####[facility] [place] [address] BASIC METABOLIC PANELon 02-0 Anion gap [Moles/Vol] 10 mmol/L Normal 7-20 [facility] Comment on above: Performed By: #### L [id number] ####[facility] [place] [address] Calcium [Mass/Vol] 9.8 mg/dL Normal 8.6-10.3 [facility] Comment on above: Performed By: #### L [id number] ####[facility] [place] [address] Chloride [Moles/Vol] 99 mmol/L Normal 98-107 [facility] Comment on above: Performed By: #### L [id number] ####[facility] [place] [address] CO2 [Moles/Vol] 33 mmol/L High 21-31 [facility] Comment on above: Performed By: #### L [id number] ####[facility] [place] [address] Creatinine [Mass/Vol] 0.94 mg/dL Normal 0.70-1.30 [facility] Comment on above: Performed By: #### L [id number] ####[facility] [place] [address] GLOMERULAR FILTRATION RATE ML/MIN/1.73 SQ M.PREDICTED 90.0 mL/min/1.73m*2 Normal >60.[address] [facility] Comment on above: Result Comment: [facility]???s estimated glomerular filtration rate (eGFR) will [...] of individuals. Performed By: #### L [id number] ####[facility] [place] [address] Glucose [Mass/Vol] 274 mg/dL High 70-100 [facility] Comment on above: Performed By: #### L [id number] ####[facility] [place] [address] Potassium [Moles/Vol] 3.8 mmol/L Normal 3.5-5.1 [facility] Comment on above: Performed By: #### L [id number] ####[facility] [place] [address] Sodium [Moles/Vol] 138 mmol/L Normal 136-145 [facility] Comment on above: Performed By: #### L [id number] ####[facility] [place] [address] Urea nitrogen [Mass/Vol] 31 mg/dL High 7-25 [facility] Comment on above: Performed By: #### L [id number] ####[facility] [place] [address] UREA NITROGEN/CREATININE (MASS RATIO) IN SER/PLAS 33.0 Normal [facility] Comment on above: Performed By: #### L [id number] ####[facility] [place] [address] CBC WITH AUTO DIFFERENTIALon 08-23-2024 Basophils (Bld) [#/Vol] 0.06 10*3/uL Normal 0.00-0.20 [facility] Comment on above: Performed By: #### L [id number] ####[facility] [place] [address] Basophils/100 WBC (Bld) 0.9 % Normal 0.0-1.0 [facility] Comment on above: Performed By: #### L [id number] ####[facility] [place] [address] Eosinophils (Bld) [#/Vol] 0.34 10*3/uL Normal 0.00-0.50 [facility] Comment on above: Performed By: #### L [id number] ####[facility] [place] [address] Eosinophils/100 WBC (Bld) 4.8 % Normal 0.0-6.0 [facility] Comment on above: Performed By: #### L [id number] ####[facility] [place] [address] Erythrocyte distribution width (RBC) [Ratio] 14.7 % Normal 11.5-15.0 [facility] Comment on above: Performed By: #### L [id number] ####[facility] [place] [address] ERYTHROCYTE MEAN CORPUSCULAR HEMOGLOBIN CONCENTRATION (G/DL) BY AUTOMATED 31.8 g/dL Low 32.0-35.0 [facility] Comment on above: Performed By: #### L [id number] ####[facility] [place] [address] Hematocrit (Bld) [Volume fraction] 52.5 % Normal 39.0-55.0 [facility] Comment on above: Performed By: #### L [id number] ####[facility] [place] [address] Hemoglobin (Bld) [Mass/Vol] 16.7 g/dL Normal 13.0-17.0 [facility] Comment on above: Performed By: #### L [id number] ####[facility] [facility] [place] [address] Immature granulocytes (Bld) [#/Vol] 0.05 10*3/uL Normal 0.00-0.20 [facility] Comment on above: Performed By: #### L [id number] ####[facility] [place] [address] Immature granulocytes/100 WBC (Bld) 0.7 % Normal 0.0-1.0 [facility] Comment on above: Performed By: #### L [id number] ####[facility] [place] [address] Lymphocytes (Bld) [#/Vol] 1.15 10*3/uL Low 1.20-4.00 [facility] Comment on above: Performed By: #### L [id number] ####[facility] [place] [address] Lymphocytes/100 WBC (Bld) 16.4 % Low 20.0-45.0 [facility] Comment on above: Performed By: #### L [id number] ####[facility] [place] [address] MCH (RBC) [Entitic mass] 29.0 pg Normal 27.0-33.0 [facility] Comment on above: Performed By: #### L [id number] ####[facility] [place] [address] MCV (RBC) [Entitic vol] 91.1 fL Normal 82.0-98.0 [facility] Comment on above: Performed By: #### L [id number] ####[facility] [facility] [place] [place] [address] Monocytes (Bld) [#/Vol] 0.85 10*3/uL Normal 0.10-1.00 [facility] Comment on above: Performed By: #### L [id number] ####[facility] [facility] [place] [address] Monocytes/100 WBC (Bld) 12.1 % High 5.0-12.0 [facility] Comment on above: Performed By: #### L [id number] ####[facility] [place] [address] Neutrophils (Bld) [#/Vol] 4.58 10*3/uL Normal 1.60-7.60 [facility] Comment on above: Performed By: #### L [id number] ####[facility] [place] [address] Neutrophils/100 WBC (Bld) 65.1 % Normal 40.0-72.0 [facility] Comment on above: Performed By: #### L [id number] ####[facility] [place] [address] NRBC (PER 100 WBCS) BY AUTOMATED COUNT 0.0 % Normal 0 [facility] Comment on above: Performed By: #### L [id number] ####[facility] [place] [address] PLATELETS (10*3/UL) IN BLOOD AUTOMATED COUNT 190 10*3/uL Normal 150-400 [facility] Comment on above: Performed By: #### L [id number] ####[facility] [place] [address] RBC (Bld) [#/Vol] 5.76 10*6/uL High 4.20-5.70 [facility] Comment on above: Performed By: #### L [id number] ####[facility] [place] [address] WBC (Bld) [#/Vol] 7.03 10*3/uL Normal 4.00-10.60 [facility] Comment on above: Performed By: #### L [id number] ####[facility] [place] [address] CONSULTon 08-23-2024 CONSULT Normal [facility] LIPID PANELon 08-23-2024 CHOL/HDL 7.8 mg/dL Normal [facility] Comment on above: Performed By: #### L [id number] ####[facility] [place] [address] Cholesterol [Mass/Vol] 195 mg/dL Normal 120-200 [facility] Comment on above: Performed By: #### L [id number] ####[facility] [place] [address] Magnesium [Mass/Vol] 177 mg/dL High 40-149 [facility] Comment on above: Result Comment: TRIG LYCERIDE REFERENCE RANGE:20 YEARS AND OLDER CARDIOVASCULAR RISKLESS THAN 150 mg/dL LOW ASRY313 TO 199 mg/dL BORDERLINE RSIA237 mg/dL AND GREATER HIGH RISK Performed By: #### L [id number] ####[facility] [place] [address] Magnesium [Mass/Vol] 135 mg/dL Normal 0-160 [facility] Comment on above: Performed By: #### L [id number] ####[facility] [place] [address] Magnesium [Mass/Vol] 25 mg/dL Normal 23-92 [facility] Comment on above: Performed By: #### L [id number] ####[facility] [place] [address] NON HDL CHOL. (LDL+VLDL) 170 Normal [facility] Comment on above: Performed By: #### L [id number] ####[facility] [place] [address] TOTAL VLDL-C 35 mg/dL Normal 0-[address] [facility] Comment on above: Performed By: #### L [id number] ####[facility] [place] [address] POCT GLUCOSE METER UNSOLICIT ED RESULTSon 08-23-2024 Glucose [Mass/Vol] 169 mg/dL High 70-105 [facility] Comment on above: Order Comment: Waive d Testing in the ED is performed under the ED CLIA certificate #[id number]. Result Comment: enoch tti Performed By: #### L [id number] ####[facility] [place] [address] Glucose [Mass/Vol] 183 mg/dL High 70-105 [facility] Comment on above: Order Comment: Waive d Testing in the ED is performed under the ED CLIA certificate #[id number]. Result Comment: ezab ors2 Performed By: #### L [id number] ####[facility] [place] [address] Glucose [Mass/Vol] 283 mg/dL High 70-105 [facility] Comment on above: Order Comment: Waive d Testing in the ED is performed under the ED CLIA certificate #[id number]. Result Comment: ezab ors2 Performed By: #### L [id number] ####[facility] [place] [address] Glucose [Mass/Vol] 258 mg/dL High 70-105 [facility] Comment on above: Order Comment: Waive d Testing in the ED is performed under the ED CLIA certificate #[id number]. Result Comment: tful ks2 Performed By: #### L [id number] ####[facility] [place] [address] 30on 08-22-2024 30 Normal [facility] ANTI-XA (HEPARIN LEVEL)on HEPARIN UNFRACTIONATED (U/ML) IN PPP BY CHROMOGENIC METHOD 0.31 IU/mL Normal 0.3-0.7 [facility] Comment on above: Result Comment: [place] roxaban and Apixaban will interfere with the anti Xa assay used to monitor UFH and LMWH. Performed By: #### L [id number] ####[facility] [place] [address] BASIC METABOLIC PANELon Anion gap [Moles/Vol] 10 mmol/L Normal 7-20 [facility] Comment on above: Performed By: #### L [id number] ####[facility] [place] [address] Calcium [Mass/Vol] 9.6 mg/dL Normal 8.6-10.3 [facility] Comment on above: Performed By: #### L [id number] ####[facility] [place] [address] Chloride [Moles/Vol] 102 mmol/L Normal 98-107 [facility] Comment on above: Performed By: #### L [id number] ####[facility] [place] [address] CO2 [Moles/Vol] 32 mmol/L High 21-31 [facility] Comment on above: Performed By: #### L [id number] ####[facility] [place] [address] Creatinine [Mass/Vol] 1.01 mg/dL Normal 0.70-1.30 [facility] Comment on above: Performed By: #### L [id number] ####[facility] [place] [address] GLOMERULAR FILTRATION RATE ML/MIN/1.73 SQ M.PREDICTED 82.5 mL/min/1.73m*2 Normal >60.[address] [facility] Comment on above: Result Comment: [facility]???s estimated glomerular filtration rate (eGFR) will [...] of individuals. Performed By: #### L [id number] ####[facility] [place] [address] Glucose [Mass/Vol] 263 mg/dL High 70-100 [facility] Comment on above: Performed By: #### L [id number] ####[facility] [place] [address] Potassium [Moles/Vol] 3.7 mmol/L Normal 3.5-5.1 [facility] Comment on above: Performed By: #### L [id number] ####[facility] [place] [address] Sodium [Moles/Vol] 140 mmol/L Normal 136-145 [facility] Comment on above: Performed By: #### L [id number] ####[facility] [place] [address] Urea nitrogen [Mass/Vol] 33 mg/dL High 7-25 [facility] Comment on above: Performed By: #### L [id number] ####[facility] [place] [address] UREA NITROGEN/CREATININE (MASS RATIO) IN SER/PLAS 32.7 Normal [facility] Comment on above: Performed By: #### L [id number] ####[facility] [place] [address] CBC WITH AUTO DIFFERENTIALon 08-22-2024 Basophils (Bld) [#/Vol] 0.05 10*3/uL Normal 0.00-0.20 [facility] Comment on above: Performed By: #### L [id number] ####[facility] [place] [address] Basophils/100 WBC (Bld) 0.5 % Normal 0.0-1.0 [facility] Comment on above: Performed By: #### L [id number] ####[facility] [place] [address] Eosinophils (Bld) [#/Vol] 0.36 10*3/uL Normal 0.00-0.50 [facility] Comment on above: Performed By: #### L [id number] ####[facility] [place] [address] Eosinophils/100 WBC (Bld) 3.9 % Normal 0.0-6.0 [facility] Comment on above: Performed By: #### L [id number] ####[facility] [place] [address] Erythrocyte distribution width (RBC) [Ratio] 14.7 % Normal 11.5-15.0 [facility] Comment on above: Performed By: #### L [id number] ####[facility] [place] [address] ERYTHROCYTE MEAN CORPUSCULAR HEMOGLOBIN CONCENTRATION (G/DL) BY AUTOMATED 30.8 g/dL Low 32.0-35.0 [facility] Comment on above: Performed By: #### L [id number] ####[facility] [place] [address] Hematocrit (Bld) [Volume fraction] 52.9 % Normal 39.0-55.0 [facility] Comment on above: Performed By: #### L [id number] ####[facility] [place] [address] Hemoglobin (Bld) [Mass/Vol] 16.3 g/dL Normal 13.0-17.0 [facility] Comment on above: Performed By: #### L [id number] ####[facility] [place] [address] Immature granulocytes (Bld) [#/Vol] 0.07 10*3/uL Normal 0.00-0.20 [facility] Comment on above: Performed By: #### L [id number] ####[facility] ([facility])[address] [place] [address] Immature granulocytes/100 WBC (Bld) 0.7 % Normal 0.0-1.0 [facility] Comment on above: Performed By: #### L [id number] ####[facility] [place] [address] Lymphocytes (Bld) [#/Vol] 1.16 10*3/uL Low 1.20-4.00 [facility] Comment on above: Performed By: #### L [id number] ####[facility] [place] [address] Lymphocytes/100 WBC (Bld) 12.4 % Low 20.0-45.0 [facility] Comment on above: Performed By: #### L [id number] ####[facility] [place] [address] MCH (RBC) [Entitic mass] 28.8 pg Normal 27.0-33.0 [facility] Comment on above: Performed By: #### L [id number] ####[facility] [place] [address] MCV (RBC) [Entitic vol] 93.5 fL Normal 82.0-98.0 [facility] Comment on above: Performed By: #### L [id number] ####[facility] [place] [address] Monocytes (Bld) [#/Vol] 1.21 10*3/uL High 0.10-1.00 [facility] Comment on above: Performed By: #### L [id number] ####[facility] [place] [address] Monocytes/100 WBC (Bld) 12.9 % High 5.0-12.0 [facility] Comment on above: Performed By: #### L [id number] ####[facility] [place] [address] Neutrophils (Bld) [#/Vol] 6.50 10*3/uL Normal 1.60-7.60 [facility] Comment on above: Performed By: #### L [id number] ####[facility] [place] [address] Neutrophils/100 WBC (Bld) 69.6 % Normal 40.0-72.0 [facility] Comment on above: Performed By: #### L [id number] ####[facility] [place] [address] NRBC (PER 100 WBCS) BY AUTOMATED COUNT 0.0 % Normal 0 [facility] Comment on above: Performed By: #### L [id number] ####[facility] [place] [address] PLATELETS (10*3/UL) IN BLOOD AUTOMATED COUNT 187 10*3/uL Normal 150-400 [facility] Comment on above: Performed By: #### L [id number] ####[facility] [place] [address] RBC (Bld) [#/Vol] 5.66 10*6/uL Normal 4.20-5.70 [facility] Comment on above: Performed By: #### L [id number] ####[facility] [place] [address] WBC (Bld) [#/Vol] 9.35 10*3/uL Normal 4.00-10.60 [facility] Comment on above: Performed By: #### L [id number] ####[facility] [place] [address] POCT GLUCOSE METER UNSOLICIT ED RESULTSon 08-22-2024 Glucose [Mass/Vol] 256 mg/dL High 70-105 [facility] Comment on above: Order Comment: Waive d Testing in the ED is performed under the ED CLIA certificate #[id number]. Result Comment: ezab ors2 Performed By: #### L [id number] ####[facility] [place] [address] Glucose [Mass/Vol] 277 mg/dL High 70-105 [facility] Comment on above: Order Comment: Waive d Testing in the ED is performed under the ED CLIA certificate #[id number]. Result Comment: ezab ors2 Performed By: #### L [id number] ####[facility] ([facility] [place] [address] ANTI-XA (HEPARIN LEVEL)on HEPARIN UNFRACTIONATED (U/ML) IN PPP BY CHROMOGENIC METHOD 0.30 IU/mL Normal 0.3-0.7 [facility] Comment on above: Result Comment: [place] roxaban and Apixaban will interfere with the anti Xa assay used to monitor UFH and LMWH. Performed By: #### L [id number] ####[facility] ([facility] [place] [address] ARTERIAL BLOOD GAS WITH CO-O XIMETRYon 08-21-2024 Base excess Calc (Bld) [Moles/Vol] 6.7 mmol/L High -2.0-3.0 [facility] Comment on above: Performed By: #### L [id number] ####[facility] [id number] [place] [address] [facility] CARBOXYHEMOGLOBIN/HEMO GLOBIN TOTAL % IN BLOOD 2.0 % Normal 0.0-3.0 [facility] Comment on above: Performed By: #### L [id number] ####[facility] [id number] [place] [address] [place] CO2 (Bld) [Partial pressure] 43 mm[Hg] Normal 35-48 [facility] Comment on above: Performed By: #### L [id number] ####[facility] [id number] [place] [address] [place] DEOXYGENATED HEMOGLOBIN IN BLOOD 4.9 % Normal 1-[address] [facility] Comment on above: Performed By: #### L [id number] ####[facility] [id number] [place] [address] [place] FIO2 50 % Normal [facility] Comment on above: Performed By: #### L [id number] ####[facility] [id number] [place] [address] [facility] HCO3 (Bld) [Moles/Vol] 31.3 mmol/L High 21.0-28.[address] [facility] Comment on above: Performed By: #### L [id number] ####[facility] [id number] [place] [address] [facility] Hemoglobin (Bld) [Mass/Vol] 16.5 g/dL Normal 11.7-17.4 [facility] Comment on above: Performed By: #### L [id number] ####[facility] [id number] [place] [address] [facility] METHEMOGLOBIN/100 IN BLOOD 0.7 % Normal 0.0-1.5 [facility] Comment on above: Performed By: #### L [id number] ####[facility] [id number] [place] [address] [facility] Oxygen (Bld) [Partial pressure] 68 mm[Hg] Low 83-100 [facility] Comment on above: Performed By: #### L [id number] ####[facility] [id number] [place] [address] [facility] OXYGEN SATURATION (%) IN ARTERIAL BLOOD 95.0 % Normal 94.0-98.0 [facility] Comment on above: Performed By: #### L [id number] ####[facility] [id number] [place] [address] [facility] OXYGENATED HEMOGLOBIN IN BLOOD 92.4 % Normal 90.0-95.0 [facility] Comment on above: Performed By: #### L [id number] ####[facility] [id number] [place] [address] [facility] pH (Bld) 7.47 [pH] High 7.35-7.45 [facility] Comment on above: Performed By: #### L [id number] ####[facility] [id number] [facility] [address] [facility] SOURCE OF OXYGEN Bi-PAP Normal [facility] Comment on above: Performed By: #### L [id number] ####[facility] [id number] [place] [address] [place] Base excess Calc (Bld) [Moles/Vol] 5.1 mmol/L High -2.0-3.0 [facility] Comment on above: Performed By: #### L [id number] ####[facility] [id number] [place] [address] [place] CARBOXYHEMOGLOBIN/HEMO GLOBIN TOTAL % IN BLOOD 1.9 % Normal 0.0-3.0 [facility] Comment on above: Performed By: #### L [id number] ####[facility] [id number] [place] [address] [place] CO2 (Bld) [Partial pressure] 46 mm[Hg] Normal 35-48 [facility] Comment on above: Performed By: #### L [id number] ####[facility] [id number] [place] [address] [facility] DEOXYGENATED HEMOGLOBIN IN BLOOD 15.8 % Critically high 1-[address] [facility] Comment on above: Performed By: #### L [id number] ####[facility] [id number] [place] [address] [place] HCO3 (Bld) [Moles/Vol] 30.5 mmol/L High 21.0-28.[address] [facility] Comment on above: Performed By: #### L [id number] ####[facility] [id number] [place] [address] [place] Hemoglobin (Bld) [Mass/Vol] 16.4 g/dL Normal 11.7-17.4 [facility] Comment on above: Performed By: #### L [id number] ####[facility] [id number] [place] [address] [place] LPM 15 Normal [facility] Comment on above: Performed By: #### L [id number] ####[facility] [id number] [place] [address] [place] METHEMOGLOBIN/100 IN BLOOD 0.6 % Normal 0.0-1.5 [facility] Comment on above: Performed By: #### L [id number] ####[facility] [id number] [place] [address] [place] Oxygen (Bld) [Partial pressure] 53 mm[Hg] Invalid Interpretation Code 83-100 [facility] Comment on above: Performed By: #### L [id number] ####[facility] [id number] [place] [address] [facility] OXYGEN SATURATION (%) IN ARTERIAL BLOOD 83.8 % Invalid Interpretation Code 94.0-98.0 [facility] Comment on above: Performed By: #### L [id number] ####[facility] [id number] [place] [address] [facility] OXYGENATED HEMOGLOBIN IN BLOOD 81.7 % Invalid Interpretation Code 90.0-95.0 [facility] Comment on above: Performed By: #### L [id number] ####[facility] [id number] [place] [address] [facility] pH (Bld) 7.43 [pH] Normal 7.35-7.45 [facility] Comment on above: Performed By: #### L [id number] ####[facility] [id number] [place] [address] [facility] SOURCE OF OXYGEN SALTER Normal [facility] Comment on above: Performed By: #### L [id number] ####[facility] [id number] [place] [address] [facility] ARTERIAL BLOOD GAS WITH IONI ZED CALCIUMon 08-21-2024 Base excess Calc (Bld) [Moles/Vol] 6.2 mmol/L High -2.0-3.0 [facility] Comment on above: Performed By: #### L [id number] ####[facility] [id number] [place] [address] [place] CALCIUM IONIZED (MMOL/L) IN BLOOD 1.30 mmol/L Normal 1.15-1.33 [facility] Comment on above: Performed By: #### L [id number] ####[facility] [id number] [place] [address] [facility] CO2 (Bld) [Partial pressure] 45 mm[Hg] Normal 35-48 [facility] Comment on above: Performed By: #### L [id number] ####[facility] [id number] [facility] [address] [place] FIO2 50 % Normal [facility] Comment on above: Performed By: #### L [id number] ####[facility] [id number] [place] [address] [facility] HCO3 (Bld) [Moles/Vol] 31.3 mmol/L High 21.0-28.0 [facility] Comment on above: Performed By: #### L [id number] ####[facility] [id number] [place] [address] [facility] Oxygen (Bld) [Partial pressure] 70 mm[Hg] Low 83-100 [facility] Comment on above: Performed By: #### L [id number] ####[facility] [id number] [place] [address] [facility] OXYGEN SATURATION (%) IN ARTERIAL BLOOD 94.9 % Normal 94.0-98.0 [facility] Comment on above: Performed By: #### L [id number] ####[facility] [id number] [place] [address] [place] PEEP 8 cmH2O Normal [facility] Comment on above: Performed By: #### L [id number] ####[facility] [id number] [place] [address] [facility] pH (Bld) 7.45 [pH] Normal 7.35-7.45 [facility] Comment on above: Performed By: #### L [id number] ####[facility] [id number] [facility] [address] [place] PRESSURE SUPPORT 14 Normal [facility] Comment on above: Performed By: #### L [id number] ####[facility] [id number] [facility] [place] [address] [facility] SOURCE OF OXYGEN Bi-PAP Normal [facility] Comment on above: Performed By: #### L [id number] ####[facility] [id number] [place] [address] [facility] BASIC METABOLIC PANELon 02-0 Anion gap [Moles/Vol] 11 mmol/L Normal 7-20 [facility] Comment on above: Performed By: #### L [id number] ####[facility] (BEAKER)[address] [place] [address] Calcium [Mass/Vol] 9.4 mg/dL Normal 8.6-10.3 [facility] Comment on above: Performed By: #### L [id number] ####[facility] (BEAKER)[address] [place] [address] Chloride [Moles/Vol] 101 mmol/L Normal 98-107 [facility] Comment on above: Performed By: #### L [id number] ####[facility] (BEAKER)[address] [place] [address] CO2 [Moles/Vol] 30 mmol/L Normal 21-31 [facility] Comment on above: Performed By: #### L [id number] ####[facility] (BEAKER)[address] [place] [address] Creatinine [Mass/Vol] 1.05 mg/dL Normal 0.70-1.30 [facility] Comment on above: Performed By: #### L [id number] ####[facility] (BEAKER)[address] [place] [address] GLOMERULAR FILTRATION RATE ML/MIN/1.73 SQ M.PREDICTED 78.8 mL/min/1.73m*2 Normal >60.[address] [facility] Comment on above: Result Comment: [facility]???s estimated glomerular filtration rate (eGFR) will [...] of individuals. Performed By: #### L [id number] ####[facility] ([facility])[address] [place] [address] Glucose [Mass/Vol] 269 mg/dL High 70-100 [facility] Comment on above: Performed By: #### L [id number] ####[facility] ([facility])[address] [place] [address] Potassium [Moles/Vol] 4.0 mmol/L Normal 3.5-5.1 [facility] Comment on above: Performed By: #### L [id number] ####[facility] ([facility])[address] [place] [address] Sodium [Moles/Vol] 138 mmol/L Normal 136-145 [facility] Comment on above: Performed By: #### L [id number] ####[facility] ([facility])[address] [place] [address] Urea nitrogen [Mass/Vol] 35 mg/dL High 7-25 [facility] Comment on above: Performed By: #### L [id number] ####[facility] ([facility])[address] [place] [address] UREA NITROGEN/CREATININE (MASS RATIO) IN SER/PLAS 33.3 Normal [facility] Comment on above: Performed By: #### L [id number] ####[facility] ([facility])[address] [place] [address] CALCIUM, IONIZEDon CALCIUM IONIZED (MMOL/L) IN BLOOD 1.29 mmol/L Normal 1.15-1.33 [facility] Comment on above: Performed By: #### C ALCIUM, IONIZED ####[facility] [id number] [place] [address] [place] CBC WITH AUTO DIFFERENTIALon 08-21-2024 Basophils (Bld) [#/Vol] 0.05 10*3/uL Normal 0.00-0.20 [facility] Comment on above: Performed By: #### L [id number] ####[facility] (BEAKER)[address] [place] [address] Basophils/100 WBC (Bld) 0.6 % Normal 0.0-1.0 [facility] Comment on above: Performed By: #### L [id number] ####[facility] (BEAKER)[address] [place] [address] Eosinophils (Bld) [#/Vol] 0.43 10*3/uL Normal 0.00-0.50 [facility] Comment on above: Performed By: #### L [id number] ####[facility] (BEAKER)[address] [place] [address] Eosinophils/100 WBC (Bld) 5.2 % Normal 0.0-6.0 [facility] Comment on above: Performed By: #### L [id number] ####[facility] (BEAKER)[address] [place] [address] Erythrocyte distribution width (RBC) [Ratio] 14.8 % Normal 11.5-15.0 [facility] Comment on above: Performed By: #### L [id number] ####[facility] (BEAKER)[address] [place] [address] ERYTHROCYTE MEAN CORPUSCULAR HEMOGLOBIN CONCENTRATION (G/DL) BY AUTOMATED 31.1 g/dL Low 32.0-35.0 [facility] Comment on above: Performed By: #### L [id number] ####[facility] (BEAKER)[address] [place] [address] Hematocrit (Bld) [Volume fraction] 52.1 % Normal 39.0-55.0 [facility] Comment on above: Performed By: #### L [id number] ####[facility] (BEAKER)[address] [place] [address] Hemoglobin (Bld) [Mass/Vol] 16.2 g/dL Normal 13.0-17.0 [facility] Comment on above: Performed By: #### L [id number] ####[facility] (BEAKER)[address] [place] [address] Immature granulocytes (Bld) [#/Vol] 0.06 10*3/uL Normal 0.00-0.20 [facility] Comment on above: Performed By: #### L [id number] ####[facility] (BEAKER)[address] [place] [address] Immature granulocytes/100 WBC (Bld) 0.7 % Normal 0.0-1.0 [facility] Comment on above: Performed By: #### L [id number] ####[facility] (BEAKER)[address] [place] [address] Lymphocytes (Bld) [#/Vol] 1.10 10*3/uL Low 1.20-4.00 [facility] Comment on above: Performed By: #### L [id number] ####[facility] (BEAKER)[address] [place] [address] Lymphocytes/100 WBC (Bld) 13.3 % Low 20.0-45.0 [facility] Comment on above: Performed By: #### L [id number] ####[facility] (BEAKER)[address] [place] [address] MCH (RBC) [Entitic mass] 29.1 pg Normal 27.0-33.0 [facility] Comment on above: Performed By: #### L [id number] ####[facility] (BEAKER)[address] [place] [address] MCV (RBC) [Entitic vol] 93.7 fL Normal 82.0-98.0 [facility] Comment on above: Performed By: #### L [id number] ####[facility] (BEAKER)[address] [place] [address] Monocytes (Bld) [#/Vol] 0.92 10*3/uL Normal 0.10-1.00 [facility] Comment on above: Performed By: #### L [id number] ####[facility] (BEAKER)[address] [place] [address] Monocytes/100 WBC (Bld) 11.1 % Normal 5.0-12.0 [facility] Comment on above: Performed By: #### L [id number] ####[facility] ([facility] [place] [address] Neutrophils (Bld) [#/Vol] 5.72 10*3/uL Normal 1.60-7.60 [facility] Comment on above: Performed By: #### L [id number] ####[facility] ([facility])[address] [place] [address] Neutrophils/100 WBC (Bld) 69.1 % Normal 40.0-72.0 [facility] Comment on above: Performed By: #### L [id number] ####[facility] ([facility])[address] [place] [address] NRBC (PER 100 WBCS) BY AUTOMATED COUNT 0.0 % Normal 0 [facility] Comment on above: Performed By: #### L [id number] ####[facility] ([facility])[address] [place] [address] PLATELETS (10*3/UL) IN BLOOD AUTOMATED COUNT 199 10*3/uL Normal 150-400 [facility] Comment on above: Performed By: #### L [id number] ####[facility] ([facility])[address] [place] [address] RBC (Bld) [#/Vol] 5.56 10*6/uL Normal 4.20-5.70 [facility] Comment on above: Performed By: #### L [id number] ####[facility] ([facility])[address] [place] [address] WBC (Bld) [#/Vol] 8.28 10*3/uL Normal 4.00-10.60 [facility] Comment on above: Performed By: #### L [id number] ####[facility] (BEAKER)[address] [place] [address] CT BRAIN PERFUSIONon 025 CT BRAIN PERFUSION Invalid Interpretation Code [facility] CT HEAD WO IV CONTRASTon CT HEAD WO IV CONTRAST [facility] HEAD W IV CONTRASTon CTA HEAD W IV CONTRAST Normal [facility] CTA NECK W IV CONTRASTon CTA NECK W IV CONTRAST [facility] MAGNESIUMon 08-21-2024 Magnesium [Mass/Vol] 1.8 mg/dL Low 1.9-2.7 [facility] Comment on above: Performed By: #### L [id number] ####[facility] (BEAKER)[address] [place] [address] MRSA/MSSA DNA NASALon 2024 MRSA DNA Positive Abnormal Negative [facility] Comment on above: Order Comment: Testi [...] preclude nasal colonization. Performed By: #### L [id number] ####[facility] (BEAKER)[address] [place] [address] MSSA DNA Negative Normal Negative [facility] Comment on above: Order Comment: Testi [...] preclude nasal colonization. Performed By: #### L [id number] ####[facility] (BEAKER)[address] [place] [address] PHOSPHORUSon 08-21-2024 Magnesium [Mass/Vol] 2.5 mg/dL Normal 2.5-5.0 [facility] Comment on above: Performed By: #### L [id number] ####[facility] (BEAKER)[address] [place] [address] POCT GLUCOSE METER UNSOLICIT ED RESULTSon 08-21-2024 Glucose [Mass/Vol] 230 mg/dL High 70-105 [facility] Comment on above: Order Comment: Waive d Testing in the ED is performed under the ED CLIA certificate #[id number]. Result Comment: lydia ero Performed By: #### L [id number] ####[facility] ([facility])[address] [place] [address] Glucose [Mass/Vol] 226 mg/dL High 70-105 [facility] Comment on above: Order Comment: Waive d Testing in the ED is performed under the ED CLIA certificate #[id number]. Result Comment: ezab [email or web address] Performed By: #### L [id number] ####[facility] ([facility])[address] [place] [address] Glucose [Mass/Vol] 229 mg/dL High 70-105 [facility] Comment on above: Order Comment: Waive d Testing in the ED is performed under the ED CLIA certificate #[id number]. Result Comment: [email or web address] Performed By: #### L [id number] ####[facility] ([facility])[address] [place] [address] Glucose [Mass/Vol] 234 mg/dL High 70-105 [facility] Comment on above: Order Comment: Waive d Testing in the ED is performed under the ED CLIA certificate #[id number]. Result Comment: [email or web address] [email or web address] Performed By: #### L [id number] ####[facility] ([facility])[address] [place] [address] POTASSIUM, WHOLE BLOODon Potassium [Moles/Vol] 3.3 mmol/L Low 3.5-5.1 [facility] Comment on above: Performed By: #### P OTASSIUM, WHOLE BLOOD ####[facility] [id number] [place] [address] [place] SODIUM, WHOLE BLOODon 2024 SODIUM, WHOLE BLOOD 137 Normal 136-145 [facility] Comment on above: Performed By: #### S ODIUM, WHOLE BLOOD ####[facility] [id number] [place] [address] [place] 30on 08-20-2024 30 Normal [facility] ANTI-XA (HEPARIN LEVEL)on HEPARIN UNFRACTIONATED (U/ML) IN PPP BY CHROMOGENIC METHOD 0.30 IU/mL Normal 0.3-0.7 [facility] Comment on above: Result Comment: [place] roxaban and Apixaban will interfere with the anti Xa assay used to monitor UFH and LMWH. Performed By: #### L [id number] ####[facility] (BEAKER)[address] [place] [address] BASIC METABOLIC PANELon 07-23 Anion gap [Moles/Vol] 8 mmol/L Normal 7-20 [facility] Comment on above: Performed By: #### L [id number] ####[facility] (BEAKER)[address] [place] [address] Calcium [Mass/Vol] 9.4 mg/dL Normal 8.6-10.3 [facility] Comment on above: Performed By: #### L [id number] ####[facility] (BEAKER)[address] [place] [address] Chloride [Moles/Vol] 99 mmol/L Normal 98-107 [facility] Comment on above: Performed By: #### L [id number] ####[facility] (BEAKER)[address] [place] [address] CO2 [Moles/Vol] 34 mmol/L High -31 [facility] Comment on above: Performed By: #### L [id number] ####[facility] (BEAKER)[address] [place] [address] Creatinine [Mass/Vol] 0.97 mg/dL Normal 0.70-1.30 [facility] Comment on above: Performed By: #### L [id number] ####[facility] ([facility])[address] [facility] [place] [address] GLOMERULAR FILTRATION RATE ML/MIN/1.73 SQ M.PREDICTED 86.6 mL/min/1.73m*2 Normal >60.[address] [facility] Comment on above: Result Comment: [facility]???s estimated glomerular filtration rate (eGFR) will [...] of individuals. Performed By: #### L [id number] ####[facility] ([facility])[address] [place] [address] Glucose [Mass/Vol] 267 mg/dL High 70-100 [facility] Comment on above: Performed By: #### L [id number] ####[facility] ([facility])[address] [place] [address] Potassium [Moles/Vol] 3.9 mmol/L Normal 3.5-5.1 [facility] Comment on above: Performed By: #### L [id number] ####[facility] ([facility])[address] [place] [address] Sodium [Moles/Vol] 137 mmol/L Normal 136-145 [facility] Comment on above: Performed By: #### L [id number] ####[facility] ([facility])[address] [place] [address] Urea nitrogen [Mass/Vol] 33 mg/dL High 7-25 [facility] Comment on above: Performed By: #### L [id number] ####[facility] ([facility])[address] [place] [address] UREA NITROGEN/CREATININE (MASS RATIO) IN SER/PLAS 34.0 Normal [facility] Comment on above: Performed By: #### L [id number] ####[facility] ([facility] [place] [address] CBC WITH AUTO DIFFERENTIALon 08-20-2024 Basophils (Bld) [#/Vol] 0.04 10*3/uL Normal 0.00-0.20 [facility] Comment on above: Performed By: #### L [id number] ####[facility] ([facility])[address] [place] [address] Basophils/100 WBC (Bld) 0.4 % Normal 0.0-1.0 [facility] Comment on above: Performed By: #### L [id number] ####[facility] ([facility])[address] [place] [address] Eosinophils (Bld) [#/Vol] 0.58 10*3/uL High 0.00-0.50 [facility] Comment on above: Performed By: #### L [id number] ####[facility] ([facility])[address] [place] [address] Eosinophils/100 WBC (Bld) 5.6 % Normal 0.0-6.0 [facility] Comment on above: Performed By: #### L [id number] ####[facility] ([facility])[address] [place] [address] Erythrocyte distribution width (RBC) [Ratio] 15.1 % High 11.5-15.0 [facility] Comment on above: Performed By: #### L [id number] ####[facility] (BEAKER)[address] [place] [address] ERYTHROCYTE MEAN CORPUSCULAR HEMOGLOBIN CONCENTRATION (G/DL) BY AUTOMATED 30.5 g/dL Low 32.0-35.0 [facility] Comment on above: Performed By: #### L [id number] ####[facility] (BEAKER)[address] [place] [address] Hematocrit (Bld) [Volume fraction] 52.1 % Normal 39.0-55.0 [facility] Comment on above: Performed By: #### L [id number] ####[facility] (BEAKER)[address] [place] [address] Hemoglobin (Bld) [Mass/Vol] 15.9 g/dL Normal 13.0-17.0 [facility] Comment on above: Performed By: #### L [id number] ####[facility] ([facility])[address] [place] [address] Immature granulocytes (Bld) [#/Vol] 0.07 10*3/uL Normal 0.00-0.20 [facility] Comment on above: Performed By: #### L [id number] ####[facility] (BEAKER)[address] [place] [address] Immature granulocytes/100 WBC (Bld) 0.7 % Normal 0.0-1.0 [facility] Comment on above: Performed By: #### L [id number] ####[facility] (BEAKER)[address] [place] [address] Lymphocytes (Bld) [#/Vol] 0.94 10*3/uL Low 1.20-4.00 [facility] Comment on above: Performed By: #### L [id number] ####[facility] (BEAKER)[address] [place] [address] Lymphocytes/100 WBC (Bld) 9.1 % Low 20.0-45.0 [facility] Comment on above: Performed By: #### L [id number] ####[facility] (BEAKER)[address] [place] [address] MCH (RBC) [Entitic mass] 29.0 pg Normal 27.0-33.0 [facility] Comment on above: Performed By: #### L [id number] ####[facility] (BEAKER)[address] [place] [address] MCV (RBC) [Entitic vol] 94.9 fL Normal 82.0-98.0 [facility] Comment on above: Performed By: #### L [id number] ####[facility] ([facility] [place])[address] [place] [address] Monocytes (Bld) [#/Vol] 0.95 10*3/uL Normal 0.10-1.00 [facility] Comment on above: Performed By: #### L [id number] ####[facility] ([place])[address] [place] [address] Monocytes/100 WBC (Bld) 9.2 % Normal 5.0-12.0 [facility] Comment on above: Performed By: #### L [id number] ####[facility] ([place])[address] [place] [address] Neutrophils (Bld) [#/Vol] 7.72 10*3/uL High 1.60-7.60 [facility] Comment on above: Performed By: #### L [id number] ####[facility] ([place])[address] [place] [address] Neutrophils/100 WBC (Bld) 75.0 % High 40.0-72.0 [facility] Comment on above: Performed By: #### L [id number] ####[facility] ([place])[address] [place] [address] NRBC (PER 100 WBCS) BY AUTOMATED COUNT 0.0 % Normal 0 [facility] Comment on above: Performed By: #### L [id number] ####[facility] ([place])[address] [place] [address] PLATELETS (10*3/UL) IN BLOOD AUTOMATED COUNT 209 10*3/uL Normal 150-400 [facility] Comment on above: Performed By: #### L [id number] ####[facility] ([facility])[address] [place] [address] RBC (Bld) [#/Vol] 5.49 10*6/uL Normal 4.20-5.70 [facility] Comment on above: Performed By: #### L [id number] ####[facility] ([place])[address] [place] [address] WBC (Bld) [#/Vol] 10.30 10*3/uL Normal 4.00-10.60 [facility] Comment on above: Performed By: #### L [id number] ####[facility] [facility] [place] [address] MAGNESIUMon 08-20-2024 Magnesium [Mass/Vol] 1.9 mg/dL Normal 1.9-2.7 [facility] Comment on above: Performed By: #### L [id number] ####[facility] [place] [address] PHOSPHORUSon 08-20-2024 Magnesium [Mass/Vol] 2.1 mg/dL Low 2.5-5.0 [facility] Comment on above: Performed By: #### L [id number] ####[facility] [place] [address] POCT GLUCOSE METER UNSOLICIT ED RESULTSon 08-20-2024 Glucose [Mass/Vol] 268 mg/dL High 70-105 [facility] Comment on above: Order Comment: Waive d Testing in the ED is performed under the ED CLIA certificate #[id number]. Result Comment: [email or web address] [email or web address] Performed By: #### L [id number] ####[facility] [place] [address] 30on 08-19-2024 30 Normal [facility] 30 Normal [facility] ANTI-XA (HEPARIN LEVEL)on HEPARIN UNFRACTIONATED (U/ML) IN PPP BY CHROMOGENIC METHOD 0.41 IU/mL Normal 0.3-0.7 [facility] Comment on above: Result Comment: [place] roxaban and Apixaban will interfere with the anti Xa assay used to monitor UFH and LMWH. Performed By: #### L [id number] ####[facility] [place] [address] BASIC METABOLIC PANELon -3 Anion gap [Moles/Vol] 8 mmol/L Normal 7-20 [facility] Comment on above: Performed By: #### L [id number] ####[facility] [place] [address] Calcium [Mass/Vol] 8.9 mg/dL Normal 8.6-10.3 [facility] Comment on above: Performed By: #### L [id number] ####[facility] [place] [address] Chloride [Moles/Vol] 99 mmol/L Normal 98-107 [facility] Comment on above: Performed By: #### L [id number] ####[facility] [place] [address] CO2 [Moles/Vol] 37 mmol/L High 21-31 [facility] Comment on above: Performed By: #### L [id number] ####[facility] [place] [address] Creatinine [Mass/Vol] 1.00 mg/dL Normal 0.70-1.30 [facility] Comment on above: Performed By: #### L [id number] ####[facility] [place] [address] GLOMERULAR FILTRATION RATE ML/MIN/1.73 SQ M.PREDICTED 83.5 mL/min/1.73m*2 Normal >60.[address] [facility] Comment on above: Result Comment: [facility]???s estimated glomerular filtration rate (eGFR) will [...] of individuals. Performed By: #### L [id number] ####[facility] [place] [address] Glucose [Mass/Vol] 219 mg/dL High 70-100 [facility] Comment on above: Performed By: #### L [id number] ####[facility] [place] [address] Potassium [Moles/Vol] 3.9 mmol/L Normal 3.5-5.1 [facility] Comment on above: Performed By: #### L [id number] ####[facility] [place] [address] Sodium [Moles/Vol] 140 mmol/L Normal 136-145 [facility] Comment on above: Performed By: #### L [id number] ####[facility] [place] [address] Urea nitrogen [Mass/Vol] 28 mg/dL High 7-25 [facility] Comment on above: Performed By: #### L [id number] ####[facility] [place] [address] UREA NITROGEN/CREATININE (MASS RATIO) IN SER/PLAS 28.0 Normal [facility] Comment on above: Performed By: #### L [id number] ####[facility] [place] [address] CBC WITH AUTO DIFFERENTIALon 08-19-2024 Basophils (Bld) [#/Vol] 0.04 10*3/uL Normal 0.00-0.20 [facility] Comment on above: Performed By: #### L [id number] ####[facility] [place] [address] Basophils/100 WBC (Bld) 0.4 % Normal 0.0-1.0 [facility] Comment on above: Performed By: #### L [id number] ####[facility] [place] [address] Eosinophils (Bld) [#/Vol] 0.62 10*3/uL High 0.00-0.50 [facility] Comment on above: Performed By: #### L [id number] ####[facility] [place] [address] Eosinophils/100 WBC (Bld) 6.7 % High 0.0-6.0 [facility] Comment on above: Performed By: #### L [id number] ####[facility] [place] [address] Erythrocyte distribution width (RBC) [Ratio] 15.4 % High 11.5-15.0 [facility] Comment on above: Performed By: #### L [id number] ####[facility] [place] [address] ERYTHROCYTE MEAN CORPUSCULAR HEMOGLOBIN CONCENTRATION (G/DL) BY AUTOMATED 29.8 g/dL Low 32.0-35.0 [facility] Comment on above: Performed By: #### L [id number] ####[facility] [place] [address] Hematocrit (Bld) [Volume fraction] 49.4 % Normal 39.0-55.0 [facility] Comment on above: Performed By: #### L [id number] ####[facility] [place] [address] Hemoglobin (Bld) [Mass/Vol] 14.7 g/dL Normal 13.0-17.0 [facility] Comment on above: Performed By: #### L [id number] ####[facility] [place] [address] Immature granulocytes (Bld) [#/Vol] 0.06 10*3/uL Normal 0.00-0.20 [facility] Comment on above: Performed By: #### L [id number] ####[facility] [place] [address] Immature granulocytes/100 WBC (Bld) 0.7 % Normal 0.0-1.0 [facility] Comment on above: Performed By: #### L [id number] ####[facility] [place] [address] Lymphocytes (Bld) [#/Vol] 0.86 10*3/uL Low 1.20-4.00 [facility] Comment on above: Performed By: #### L [id number] ####[facility] [place] [address] Lymphocytes/100 WBC (Bld) 9.3 % Low 20.0-45.0 [facility] Comment on above: Performed By: #### L [id number] ####[facility] [place] [address] MCH (RBC) [Entitic mass] 28.9 pg Normal 27.0-33.0 [facility] Comment on above: Performed By: #### L [id number] ####[facility] [place] [address] MCV (RBC) [Entitic vol] 97.2 fL Normal 82.0-98.0 [facility] Comment on above: Performed By: #### L [id number] ####[facility] [place] [address] Monocytes (Bld) [#/Vol] 0.94 10*3/uL Normal 0.10-1.00 [facility] Comment on above: Performed By: #### L [id number] ####[facility] [place] [address] Monocytes/100 WBC (Bld) 10.2 % Normal 5.0-12.0 [facility] Comment on above: Performed By: #### L [id number] ####[facility] [place] [address] Neutrophils (Bld) [#/Vol] 6.68 10*3/uL Normal 1.60-7.60 [facility] Comment on above: Performed By: #### L [id number] ####[facility] [place] [address] Neutrophils/100 WBC (Bld) 72.7 % High 40.0-72.0 [facility] Comment on above: Performed By: #### L [id number] ####[facility] [place] [address] NRBC (PER 100 WBCS) BY AUTOMATED COUNT 0.0 % Normal 0 [facility] Comment on above: Performed By: #### L [id number] ####[facility] [place] [address] PLATELETS (10*3/UL) IN BLOOD AUTOMATED COUNT 198 10*3/uL Normal 150-400 [facility] Comment on above: Performed By: #### L [id number] ####[facility] [place] [address] RBC (Bld) [#/Vol] 5.08 10*6/uL Normal 4.20-5.70 [facility] Comment on above: Performed By: #### L [id number] ####[facility] [place] [address] WBC (Bld) [#/Vol] 9.20 10*3/uL Normal 4.00-10.60 [facility] Comment on above: Performed By: #### L [id number] ####[facility] [place] [address] CONSULTon 08-19-2024 CONSULT Normal [facility] MAGNESIUMon 08-19-2024 Magnesium [Mass/Vol] 1.9 mg/dL Normal 1.9-2.7 [facility] Comment on above: Performed By: #### L [id number] ####[facility] [place] [address] PHOSPHORUSon 08-19-2024 Magnesium [Mass/Vol] 2.9 mg/dL Normal 2.5-5.0 [facility] Comment on above: Performed By: #### L [id number] ####[facility] [place] [address] POCT GLUCOSE METER UNSOLICIT ED RESULTSon 08-19-2024 Glucose [Mass/Vol] 239 mg/dL High 70-105 [facility] Comment on above: Order Comment: Waive d Testing in the ED is performed under the ED CLIA certificate #[id number]. Result Comment: alexandru [email or web address] Performed By: #### L [id number] ####[facility] [place] [address] Glucose [Mass/Vol] 251 mg/dL High 70-105 [facility] Comment on above: Order Comment: Waive d Testing in the ED is performed under the ED CLIA certificate #[id number]. Result Comment: [email or web address] [email or web address] Performed By: #### L [id number] ####[facility] [place] [address] Glucose [Mass/Vol] 185 mg/dL High 70-105 [facility] Comment on above: Order Comment: Waive d Testing in the ED is performed under the ED CLIA certificate #[id number]. Result Comment: [email or web address] [email or web address] Performed By: #### L [id number] ####[facility] [place] [address] TRIGLYCERIDESon 08-19-2024 FASTING? UNKNOWN Normal [facility] Comment on above: Performed By: #### L [id number] ####[facility] [place] [address] Magnesium [Mass/Vol] 192 mg/dL High 40-149 [facility] Comment on above: Result Comment: TRIG LYCERIDE REFERENCE RANGE:20 YEARS AND OLDER CARDIOVASCULAR RISKLESS THAN 150 mg/dL LOW [id number] TO 199 mg/dL BORDERLINE [id number] mg/dL AND GREATER HIGH RISK Performed By: #### L [id number] ####[facility] [place] [address] ANTI-XA (HEPARIN LEVEL)on HEPARIN UNFRACTIONATED (U/ML) IN PPP BY CHROMOGENIC METHOD 0.50 IU/mL Normal 0.3-0.7 [facility] Comment on above: Result Comment: [place] roxaban and Apixaban will interfere with the anti Xa assay used to monitor UFH and LMWH. Performed By: #### L [id number] ####[facility] [place] [address] HEPARIN UNFRACTIONATED (U/ML) IN PPP BY CHROMOGENIC METHOD 0.60 IU/mL Normal 0.3-0.7 [facility] Comment on above: Result Comment: [place] roxaban and Apixaban will interfere with the anti Xa assay used to monitor UFH and LMWH. Performed By: #### L [id number] ####[facility] [place] [address] BASIC METABOLIC PANELon 07-22 Anion gap [Moles/Vol] 8 mmol/L Normal 7-20 [facility] Comment on above: Performed By: #### L [id number] ####[facility] [place] [address] Calcium [Mass/Vol] 8.7 mg/dL Normal 8.6-10.3 [facility] Comment on above: Performed By: #### L [id number] ####[facility] [place] [address] Chloride [Moles/Vol] 98 mmol/L Normal 98-107 [facility] Comment on above: Performed By: #### L [id number] ####[facility] [facility] [address] CO2 [Moles/Vol] 41 mmol/L Critically high 21-31 [facility] Comment on above: Performed By: #### L [id number] ####[facility] [place] [address] Creatinine [Mass/Vol] 1.05 mg/dL Normal 0.70-1.30 [facility] Comment on above: Performed By: #### L [id number] ####[facility] [place] [address] GLOMERULAR FILTRATION RATE ML/MIN/1.73 SQ M.PREDICTED 78.8 mL/min/1.73m*2 Normal >60.[address] [facility] Comment on above: Result Comment: [facility]???s estimated glomerular filtration rate (eGFR) will [...] of individuals. Performed By: #### L [id number] ####[facility] [place] [address] Glucose [Mass/Vol] 201 mg/dL High 70-100 [facility] Comment on above: Performed By: #### L [id number] ####[facility] [place] [address] Potassium [Moles/Vol] 3.7 mmol/L Normal 3.5-5.1 [facility] Comment on above: Performed By: #### L [id number] ####[facility] [place] [address] Sodium [Moles/Vol] 143 mmol/L Normal 136-145 [facility] Comment on above: Performed By: #### L [id number] ####[facility] [place] [address] Urea nitrogen [Mass/Vol] 25 mg/dL Normal 7-25 [facility] Comment on above: Performed By: #### L [id number] ####[facility] [place] [address] UREA NITROGEN/CREATININE (MASS RATIO) IN SER/PLAS 23.8 Normal [facility] Comment on above: Performed By: #### L [id number] ####[facility] [place] [address] CBC WITH AUTO DIFFERENTIALon 08-18-2024 Basophils (Bld) [#/Vol] 0.03 10*3/uL Normal 0.00-0.20 [facility] Comment on above: Performed By: #### L [id number] ####[facility] [place] [address] Basophils/100 WBC (Bld) 0.3 % Normal 0.0-1.0 [facility] Comment on above: Performed By: #### L [id number] ####[facility] [place] [address] Eosinophils (Bld) [#/Vol] 0.45 10*3/uL Normal 0.00-0.50 [facility] Comment on above: Performed By: #### L [id number] ####[facility] [place] [address] Eosinophils/100 WBC (Bld) 5.0 % Normal 0.0-6.0 [facility] Comment on above: Performed By: #### L [id number] ####[facility] [place] [address] Erythrocyte distribution width (RBC) [Ratio] 15.5 % High 11.5-15.0 [facility] Comment on above: Performed By: #### L [id number] ####[facility] [place] [address] ERYTHROCYTE MEAN CORPUSCULAR HEMOGLOBIN CONCENTRATION (G/DL) BY AUTOMATED 29.7 g/dL Low 32.0-35.0 [facility] Comment on above: Performed By: #### L [id number] ####[facility] [place] [address] Hematocrit (Bld) [Volume fraction] 49.5 % Normal 39.0-55.0 [facility] Comment on above: Performed By: #### L [id number] ####[facility] [place] [address] Hemoglobin (Bld) [Mass/Vol] 14.7 g/dL Normal 13.0-17.0 [facility] Comment on above: Performed By: #### L [id number] ####[facility] [place] [address] Immature granulocytes (Bld) [#/Vol] 0.05 10*3/uL Normal 0.00-0.20 [facility] Comment on above: Performed By: #### L [id number] ####[facility] [place] [address] Immature granulocytes/100 WBC (Bld) 0.6 % Normal 0.0-1.0 [facility] Comment on above: Performed By: #### L [id number] ####[facility] [place] [address] Lymphocytes (Bld) [#/Vol] 0.93 10*3/uL Low 1.20-4.00 [facility] Comment on above: Performed By: #### L [id number] ####[facility] [place] [address] Lymphocytes/100 WBC (Bld) 10.4 % Low 20.0-45.0 [facility] Comment on above: Performed By: #### L [id number] ####[facility] [place] [address] MCH (RBC) [Entitic mass] 29.2 pg Normal 27.0-33.0 [facility] Comment on above: Performed By: #### L [id number] ####[facility] [place] [address] MCV (RBC) [Entitic vol] 98.2 fL High 82.0-98.0 [facility] Comment on above: Performed By: #### L [id number] ####[facility] [place] [address] Monocytes (Bld) [#/Vol] 1.06 10*3/uL High 0.10-1.00 [facility] Comment on above: Performed By: #### L [id number] ####[facility] [place] [address] Monocytes/100 WBC (Bld) 11.9 % Normal 5.0-12.0 [facility] Comment on above: Performed By: #### L [id number] ####[facility] [place] [address] Neutrophils (Bld) [#/Vol] 6.41 10*3/uL Normal 1.60-7.60 [facility] Comment on above: Performed By: #### L [id number] ####[facility] [place] [address] Neutrophils/100 WBC (Bld) 71.8 % Normal 40.0-72.0 [facility] Comment on above: Performed By: #### L [id number] ####[facility] [place] [address] NRBC (PER 100 WBCS) BY AUTOMATED COUNT 0.0 % Normal 0 [facility] Comment on above: Performed By: #### L [id number] ####[facility] [place] [address] PLATELETS (10*3/UL) IN BLOOD AUTOMATED COUNT 208 10*3/uL Normal 150-400 [facility] Comment on above: Performed By: #### L [id number] ####[facility] [place] [address] RBC (Bld) [#/Vol] 5.04 10*6/uL Normal 4.20-5.70 [facility] Comment on above: Performed By: #### L [id number] ####[facility] [place] [address] WBC (Bld) [#/Vol] 8.93 10*3/uL Normal 4.00-10.60 [facility] Comment on above: Performed By: #### L [id number] ####[facility] [place] [address] CONSULTon 08-18-2024 CONSULT Normal [facility] MAGNESIUMon 08-18-2024 Magnesium [Mass/Vol] 2.1 mg/dL Normal 1.9-2.7 [facility] Comment on above: Performed By: #### L [id number] ####[facility] [place] [address] PHOSPHORUSon 08-18-2024 Magnesium [Mass/Vol] 2.9 mg/dL Normal 2.5-5.0 [facility] Comment on above: Performed By: #### L [id number] ####[facility] [place] [address] POCT GLUCOSE METER UNSOLICIT ED RESULTSon 08-18-2024 Glucose [Mass/Vol] 194 mg/dL High 70-105 [facility] Comment on above: Order Comment: Waive d Testing in the ED is performed under the ED CLIA certificate #[id number]. Result Comment: alexandru [email or web address] Performed By: #### L [id number] ####[facility] [place] [address] Glucose [Mass/Vol] 183 mg/dL High 70-105 [facility] Comment on above: Order Comment: Waive d Testing in the ED is performed under the ED CLIA certificate #[id number]. Result Comment: ezab ors2 Performed By: #### L [id number] ####[facility] [place] [address] Glucose [Mass/Vol] 173 mg/dL High 70-105 [facility] Comment on above: Order Comment: Waive d Testing in the ED is performed under the ED CLIA certificate #[id number]. Result Comment: ezab ors2 Performed By: #### L [id number] ####[facility] [place] [address] Glucose [Mass/Vol] 200 mg/dL High 70-105 [facility] Comment on above: Order Comment: Waive d Testing in the ED is performed under the ED CLIA certificate #[id number]. Result Comment: alexandru [email or web address] Performed By: #### L [id number] ####[facility] [place] [address] SPUTUM CULTUREon 08-18-2024 Clindamycin [Susc] <=0.5 Susceptible [facility] Comment on above: Performed By: #### L [id number] ####[facility] [place] [address] DAPTOmycin [Susc] <=1 Susceptible [facility] Comment on above: Performed By: #### L [id number] ####[facility] [place] [address] Linezolid [Susc] <=1 Susceptible [facility] Comment on above: Performed By: #### L [id number] ####[facility] ([facility] [place] [address] Oxacillin [Susc] >2 Resistant [facility] Comment on above: Performed By: #### L [id number] ####[facility] [place] [address] Tetracycline [Susc] <=0.5 Susceptible [facility] Comment on above: Performed By: #### L [id number] ####[facility] ([facility])[address] [place] [address] Trimethoprim+Sulfameth oxazole [Susc] <=0.5/9.5 Susceptible [facility] Comment on above: Performed By: #### L [id number] ####[facility] ([facility])[address] [place] [address] Vancomycin [Susc] <=0.5 Susceptible [facility] Comment on above: Performed By: #### L [id number] ####[facility] [place] [address] TRIGLYCERIDESon 08-18-2024 FASTING? unknown [facility] Comment on above: Performed By: #### L [id number] ####[facility] [place] [address] Magnesium [Mass/Vol] 154 mg/dL High 40-149 [facility] Comment on above: Result Comment: TRIG LYCERIDE REFERENCE RANGE:20 YEARS AND OLDER CARDIOVASCULAR RISKLESS THAN 150 mg/dL LOW [id number] TO 199 mg/dL BORDERLINE [id number] mg/dL AND GREATER HIGH RISK Performed By: #### L [id number] ####[facility] [place] [address] 30on 08-17-2024 30 Normal [facility] ANTI-XA (HEPARIN LEVEL)on HEPARIN UNFRACTIONATED (U/ML) IN PPP BY CHROMOGENIC METHOD 0.86 IU/mL High 0.3-0.7 [facility] Comment on above: Result Comment: [place] roxaban and Apixaban will interfere with the anti Xa assay used to monitor UFH and LMWH. Performed By: #### L [id number] ####[facility] ([facility] [place] [address] HEPARIN UNFRACTIONATED (U/ML) IN PPP BY CHROMOGENIC METHOD >1.00 Critically high 0.3-0.7 [facility] Comment on above: Result Comment: [place] roxaban and Apixaban will interfere with the anti Xa assay used to monitor UFH and LMWH. Performed By: #### L [id number] ####[facility])[address] [place] [address] HEPARIN UNFRACTIONATED (U/ML) IN PPP BY CHROMOGENIC METHOD >1.00 Critically high 0.3-0.7 [facility] Comment on above: Performed By: #### L [id number] ####[facility] [place] [address] APTTon 08-17-2024 ACTIVATED PARTIAL THROMBOPLASTIN TIME IN PPP BY COAGULATION ASSAY 99.6 Seconds High 25.0-35.0 [facility] Comment on above: Result Comment: Clin ical significance of the APTT is questionable in the presence of heparin. Performed By: #### L [id number] ####[facility] [place] [address] ACTIVATED PARTIAL THROMBOPLASTIN TIME IN PPP BY COAGULATION ASSAY 98.9 Seconds High 25.0-35.0 [place] [facility] Comment on above: Result Comment: Clin ical significance of the APTT is questionable in the presence of heparin. Performed By: #### L [id number] ####[facility] ([facility] [place] [address] B-TYPE NATRIURETIC PEPTIDEon 08-17-2024 Natriuretic peptide B (Bld) [Mass/Vol] 75 pg/mL Normal 0-100 [facility] Comment on above: Performed By: #### L [id number] ####[facility] [place] [address] BASIC METABOLIC PANELon 07-22 Anion gap [Moles/Vol] 9 mmol/L Normal 7-20 [facility] Comment on above: Performed By: #### L [id number] ####[facility] [place] [address] Calcium [Mass/Vol] 8.8 mg/dL Normal 8.6-10.3 [facility] Comment on above: Performed By: #### L [id number] ####[facility] [place] [address] Chloride [Moles/Vol] 97 mmol/L Low 98-107 [facility] Comment on above: Performed By: #### L [id number] ####[facility] [place] [address] CO2 [Moles/Vol] 45 mmol/L Critically high 21-31 [facility] Comment on above: Performed By: #### L [id number] ####[facility] [place] [address] Creatinine [Mass/Vol] 0.93 mg/dL Normal 0.70-1.30 [facility] Comment on above: Performed By: #### L [id number] ####[facility] ([facility] [place] [address] GLOMERULAR FILTRATION RATE ML/MIN/1.73 SQ M.PREDICTED 91.1 mL/min/1.73m*2 Normal >60.[address] [facility] Comment on above: Result Comment: [facility]???s estimated glomerular filtration rate (eGFR) will [...] of individuals. Performed By: #### L [id number] ####[facility] [place] [address] Glucose [Mass/Vol] 190 mg/dL High 70-100 [facility] Comment on above: Performed By: #### L [id number] ####[facility] ([facility] [place] [address] Potassium [Moles/Vol] 3.5 mmol/L Normal 3.5-5.1 [facility] Comment on above: Performed By: #### L [id number] ####[facility] ([facility] [place] [address] Sodium [Moles/Vol] 147 mmol/L High 136-145 [facility] Comment on above: Performed By: #### L [id number] ####[facility] [place] [address] Urea nitrogen [Mass/Vol] 28 mg/dL High 7-25 [facility] Comment on above: Performed By: #### L [id number] ####[facility] [place] [address] UREA NITROGEN/CREATININE (MASS RATIO) IN SER/PLAS 30.1 Normal [facility] Comment on above: Performed By: #### L [id number] ####[facility] [place] [address] CBC WITH AUTO DIFFERENTIALon 08-17-2024 Basophils (Bld) [#/Vol] 0.02 10*3/uL Normal 0.00-0.20 [facility] Comment on above: Performed By: #### L [id number] ####[facility] [place] [address] Basophils/100 WBC (Bld) 0.2 % Normal 0.0-1.0 [facility] Comment on above: Performed By: #### L [id number] ####[facility] [place] [address] Eosinophils (Bld) [#/Vol] 0.20 10*3/uL Normal 0.00-0.50 [facility] Comment on above: Performed By: #### L [id number] ####[facility] [place] [address] Eosinophils/100 WBC (Bld) 2.4 % Normal 0.0-6.0 [facility] Comment on above: Performed By: #### L [id number] ####[facility] [place] [address] Erythrocyte distribution width (RBC) [Ratio] 15.3 % High 11.5-15.0 [facility] Comment on above: Performed By: #### L [id number] ####[facility] ([facility])[address] [place] [address] ERYTHROCYTE MEAN CORPUSCULAR HEMOGLOBIN CONCENTRATION (G/DL) BY AUTOMATED 30.0 g/dL Low 32.0-35.0 [facility] Comment on above: Performed By: #### L [id number] ####[facility] ([facility])[address] [place] [address] Hematocrit (Bld) [Volume fraction] 49.7 % Normal 39.0-55.0 [facility] Comment on above: Performed By: #### L [id number] ####[facility] ([facility])[address] [place] [address] Hemoglobin (Bld) [Mass/Vol] 14.9 g/dL Normal 13.0-17.0 [facility] Comment on above: Performed By: #### L [id number] ####[facility] ([facility])[address] [place] [address] Immature granulocytes (Bld) [#/Vol] 0.04 10*3/uL Normal 0.00-0.20 [facility] Comment on above: Performed By: #### L [id number] ####[facility] ([facility])[address] [place] [address] Immature granulocytes/100 WBC (Bld) 0.5 % Normal 0.0-1.0 [facility] Comment on above: Performed By: #### L [id number] ####[facility] ([facility])[address] [place] [address] Lymphocytes (Bld) [#/Vol] 0.87 10*3/uL Low 1.20-4.00 [facility] Comment on above: Performed By: #### L [id number] ####[facility] ([facility])[address] [place] [address] Lymphocytes/100 WBC (Bld) 10.5 % Low 20.0-45.0 [facility] Comment on above: Performed By: #### L [id number] ####[facility] ([facility])[address] [place] [address] MCH (RBC) [Entitic mass] 29.0 pg Normal 27.0-33.0 [facility] Comment on above: Performed By: #### L [id number] ####[facility] ([facility])[address] [place] [address] MCV (RBC) [Entitic vol] 96.9 fL Normal 82.0-98.0 [facility] Comment on above: Performed By: #### L [id number] ####[facility] ([facility] [place] [address] Monocytes (Bld) [#/Vol] 1.21 10*3/uL High 0.10-1.00 [facility] Comment on above: Performed By: #### L [id number] ####[facility] [place] [address] Monocytes/100 WBC (Bld) 14.6 % High 5.0-12.0 [facility] Comment on above: Performed By: #### L [id number] ####[facility] [place] [address] Neutrophils (Bld) [#/Vol] 5.97 10*3/uL Normal 1.60-7.60 [facility] Comment on above: Performed By: #### L [id number] ####[facility] [place] [address] Neutrophils/100 WBC (Bld) 71.8 % Normal 40.0-72.0 [facility] Comment on above: Performed By: #### L [id number] ####[facility] ([facility])[address] [place], [place] [address] NRBC (PER 100 WBCS) BY AUTOMATED COUNT 0.0 % Normal 0 [facility] Comment on above: Performed By: #### L [id number] ####[facility] ([facility])[address] [place] [address] PLATELETS (10*3/UL) IN BLOOD AUTOMATED COUNT 210 10*3/uL Normal 150-400 [facility] Comment on above: Performed By: #### L [id number] ####[facility] [place] [address] RBC (Bld) [#/Vol] 5.13 10*6/uL Normal 4.20-5.70 [facility] Comment on above: Performed By: #### L [id number] ####[facility] [place] [address] WBC (Bld) [#/Vol] 8.31 10*3/uL Normal 4.00-10.60 [facility] Comment on above: Performed By: #### L [id number] ####[facility] [place] [address] MAGNESIUMon 08-17-2024 Magnesium [Mass/Vol] 2.2 mg/dL Normal 1.9-2.7 [facility] Comment on above: Performed By: #### L [id number] ####[facility] [place] [address] Magnesium [Mass/Vol] 1.8 mg/dL Low 1.9-2.7 [facility] Comment on above: Performed By: #### L [id number] ####[facility] [place] [address] Magnesium [Mass/Vol] 1.6 mg/dL Low 1.9-2.7 [facility] Comment on above: Performed By: #### L [id number] ####[facility] [place] [address] PHOSPHORUSon 08-17-2024 Magnesium [Mass/Vol] 3.2 mg/dL Normal 2.5-5.0 [facility] Comment on above: Performed By: #### L [id number] ####[facility] ([facility] [place] [address] POCT GLUCOSE METER UNSOLICIT ED RESULTSon 08-17-2024 Glucose [Mass/Vol] 184 mg/dL High 70-105 [facility] Comment on above: Order Comment: Waive d Testing in the ED is performed under the ED CLIA certificate #[id number]. Result Comment: umesh sheikh Performed By: #### L [id number] ####[facility] [place] [address] Glucose [Mass/Vol] 191 mg/dL High 70-105 [facility] Comment on above: Order Comment: Waive d Testing in the ED is performed under the ED CLIA certificate #[id number]. Result Comment: [email or web address] [email or web address] Performed By: #### L [id number] ####[facility] [place] [address] POTASSIUMon 08-17-2024 Potassium [Moles/Vol] 3.8 mmol/L Normal 3.5-5.1 [facility] Comment on above: Performed By: #### L [id number] ####[facility] [place] [address] Potassium [Moles/Vol] 3.7 mmol/L Normal 3.5-5.1 [facility] Comment on above: Performed By: #### L [id number] ####[facility] [place] [address] PROTIME-INRon 08-17-2024 INR IN PPP BY COAGULATION ASSAY 1.19 High 0.90-1.10 [facility] Comment on above: Result Comment: ACCC [...] CHEST 1995;108:231S-246S. Performed By: #### L [id number] ####[facility] ([facility])[address] [place] [address] PROTHROMBIN TIME (PT) IN PPP BY COAGULATION ASSAY 15.0 Seconds High 12.3-14.8 [facility] Comment on above: Performed By: #### L [id number] ####[facility] ([facility])[address] [place] [address] INR IN PPP BY COAGULATION ASSAY 1.19 High 0.90-1.10 [facility] Comment on above: Result Comment: ACCC [...] CHEST 1995;108:[id number]. Performed By: #### L [id number] ####[facility] [employer])[address] [place] [address] PROTHROMBIN TIME (PT) IN PPP BY COAGULATION ASSAY 15.1 Seconds High 12.3-14.8 [facility] Comment on above: Performed By: #### L [id number] ####[facility] [place] [address] TRIGLYCERIDESon 08-17-2024 FASTING? Unknown Normal [facility] Comment on above: Performed By: #### L [id number] ####[facility] [place] [address] Magnesium [Mass/Vol] 119 mg/dL Normal 40-149 [facility] Comment on above: Result Comment: TRIG LYCERIDE REFERENCE RANGE:20 YEARS AND OLDER CARDIOVASCULAR RISKLESS THAN 150 mg/dL LOW [id number] TO 199 mg/dL BORDERLINE [id number] mg/dL AND GREATER HIGH RISK Performed By: #### L [id number] ####[facility] [place] [address] TROPONIN Ion 08-17-2024 Troponin I.cardiac [Mass/Vol] 0.04 ng/mL Normal 0.00-0.04 [facility] Comment on above: Performed By: #### L [id number] ####[facility] [place] [address] Troponin I.cardiac [Mass/Vol] 0.04 ng/mL Normal 0.00-0.04 [facility] Comment on above: Performed By: #### L [id number] ####[facility] [place] [address] VANCOMYCIN, TROUGHon 025 VANCOMYCIN (UG/ML) IN SER/PLAS - TROUGH 23.6 ug/mL Critically high 5.0-20.0 [facility] Comment on above: Performed By: #### L [id number] ####[facility] [place] [address] BASIC METABOLIC PANELon 07-22 Anion gap [Moles/Vol] 11 mmol/L Normal 7-20 [facility] Comment on above: Performed By: #### L [id number] ####[facility] ([facility])[address] [place] [address] Calcium [Mass/Vol] 8.9 mg/dL Normal 8.6-10.3 [facility] Comment on above: Performed By: #### L [id number] ####[facility] ([facility] [place] [address] Chloride [Moles/Vol] 99 mmol/L Normal 98-107 [facility] Comment on above: Performed By: #### L [id number] ####[facility] ([facility] [place] [address] CO2 [Moles/Vol] 38 mmol/L High 21-31 [facility] Comment on above: Performed By: #### L [id number] ####[facility] ([facility])[address] [place] [address] Creatinine [Mass/Vol] 1.10 mg/dL Normal 0.70-1.30 [facility] Comment on above: Performed By: #### L [id number] ####[facility] ([facility])[address] [place] [address] GLOMERULAR FILTRATION RATE ML/MIN/1.73 SQ M.PREDICTED 74.5 mL/min/1.73m*2 Normal >60.[address] [facility] Comment on above: Result Comment: [facility]???s estimated glomerular filtration rate (eGFR) will [...] of individuals. Performed By: #### L [id number] ####[facility] ([facility])[address] [place] [address] Glucose [Mass/Vol] 202 mg/dL High 70-100 [facility] Comment on above: Performed By: #### L [id number] ####[facility] [place] [address] Potassium [Moles/Vol] 3.3 mmol/L Low 3.5-5.1 [facility] Comment on above: Performed By: #### L [id number] ####[facility] [place] [address] Sodium [Moles/Vol] 145 mmol/L Normal 136-145 [facility] Comment on above: Performed By: #### L [id number] ####[facility] [place] [address] Urea nitrogen [Mass/Vol] 38 mg/dL High 7-25 [facility] Comment on above: Performed By: #### L [id number] ####[facility] [place] [address] UREA NITROGEN/CREATININE (MASS RATIO) IN SER/PLAS 34.5 Normal [facility] Comment on above: Performed By: #### L [id number] ####[facility] [place] [address] CALCIUM, IONIZEDon CALCIUM IONIZED (MMOL/L) IN BLOOD Normal [facility] Comment on above: Result Comment: C^In calculable Performed By: #### C ALCIUM, IONIZED ####[facility] [id number] [place] [address] [place] CBC WITH AUTO DIFFERENTIALon 08-16-2024 Erythrocyte distribution width (RBC) [Ratio] 15.1 % High 11.5-15.0 [facility] Comment on above: Performed By: #### L [id number] ####[facility] ([facility] [place] [address] ERYTHROCYTE MEAN CORPUSCULAR HEMOGLOBIN CONCENTRATION (G/DL) BY AUTOMATED 30.9 g/dL Low 32.0-35.0 [facility] Comment on above: Performed By: #### L [id number] ####[facility] ([facility])[address] [place] [address] Hematocrit (Bld) [Volume fraction] 52.1 % Normal 39.0-55.0 [facility] Comment on above: Performed By: #### L [id number] ####[facility] ([facility])[address] [place] [address] Hemoglobin (Bld) [Mass/Vol] 16.1 g/dL Normal 13.0-17.0 [facility] Comment on above: Performed By: #### L [id number] ####[facility] [place] [address] MCH (RBC) [Entitic mass] 29.4 pg Normal 27.0-33.0 [facility] Comment on above: Performed By: #### L [id number] ####[facility] [place] [address] MCV (RBC) [Entitic vol] 95.1 fL Normal 82.0-98.0 [facility] Comment on above: Performed By: #### L [id number] ####[facility] [place] [address] NRBC (PER 100 WBCS) BY AUTOMATED COUNT 0.0 % Normal 0 [facility] Comment on above: Performed By: #### L [id number] ####[facility] [place] [address] PLATELETS (10*3/UL) IN BLOOD AUTOMATED COUNT 243 10*3/uL Normal 150-400 [facility] Comment on above: Performed By: #### L [id number] ####[facility] [place] [address] RBC (Bld) [#/Vol] 5.48 10*6/uL Normal 4.20-5.70 [facility] Comment on above: Performed By: #### L [id number] ####[facility] [place] [address] WBC (Bld) [#/Vol] 9.57 10*3/uL Normal 4.00-10.60 [facility] Comment on above: Performed By: #### L [id number] ####[facility] [place] [address] CONSULTon 08-16-2024 CONSULT Normal [facility] CONSULT Normal [facility] CTA CHEST W IV CONTRASTon CTA CHEST W IV CONTRAST Invalid Interpretation Code [facility] MAGNESIUMon 08-16-2024 Magnesium [Mass/Vol] 1.9 mg/dL Normal 1.9-2.7 [facility] Comment on above: Performed By: #### L [id number] ####[facility] ([facility])[address] [place] [address] Magnesium [Mass/Vol] 1.7 mg/dL Low 1.9-2.7 [facility] Comment on above: Performed By: #### L [id number] ####[facility] ([facility])[address] [place] [address] MANUAL DIFFERENTIALon 2024 BASOPHILS (10*3/UL) IN BLOOD BY CALCULATION 0.02 10*3/uL Normal 0.00-0.20 [facility] Comment on above: Performed By: #### L [id number] ####[facility] ([facility])[address] [place] [address] BASOPHILS/100 LEUKOCYTES IN BLOOD BY AUTOMATED COUNT 0.2 % Normal 0.0-1.0 [facility] Comment on above: Performed By: #### L [id number] ####[facility] ([facility])[address] [place] [address] EOSINOPHILS (10*3/UL) IN BLOOD BY CALCULATION 0.10 10*3/uL Normal 0.00-0.50 [facility] Comment on above: Performed By: #### L [id number] ####[facility] ([facility])[address] [place] [address] EOSINOPHILS/100 LEUKOCYTES IN BLOOD BY AUTOMATED COUNT 1.0 % Normal 0.0-6.0 [facility] Comment on above: Performed By: #### L [id number] ####[facility] ([facility])[address] [place] [address] IMMATURE GRANULOCYTES (10*3/UL) IN BLOOD BY CALCULATION 0.06 10*3/uL Normal 0.00-0.20 [facility] Comment on above: Performed By: #### L [id number] ####[facility] ([facility])[address] [place] [address] IMMATURE GRANULOCYTES/100 LEUKOCYTES IN BLOOD BY AUTOMATED COUNT 0.6 % Normal 0.0-1.0 [facility] Comment on above: Performed By: #### L [id number] ####[facility] ([facility])[address] [place] [address] LYMPHOCYTES (10*3/UL) IN BLOOD BY CALCULATION 0.73 10*3/uL Low 1.20-4.00 [facility] Comment on above: Performed By: #### L [id number] ####[facility] ([facility])[address] [place] [address] LYMPHOCYTES/100 LEUKOCYTES IN BLOOD BY AUTOMATED COUNT 7.6 % Low 20.0-45.0 [facility] Comment on above: Performed By: #### L [id number] ####[facility] ([facility])[address] [place] [address] MONOCYTES (10*3/UL) IN BLOOD BY CALCUATION 1.52 10*3/uL High 0.10-1.[address] [facility] Comment on above: Performed By: #### L [id number] ####[facility] ([facility])[address] [place] [address] MONOCYTES/100 LEUKOCYTES IN BLOOD BY AUTOMATED COUNT 15.9 % High 5.0-12.0 [facility] Comment on above: Performed By: #### L [id number] ####[facility] ([facility])[address] [place] [address] NEUTROPHILS (10*3/UL) IN BLOOD BY CALCULATION 7.1 10*3/uL Normal 1.6-7.6 [facility] Comment on above: Performed By: #### L [id number] ####[facility] ([facility])[address] [place] [address] NEUTROPHILS/100 LEUKOCYTES IN BLOOD BY AUTOMATED COUNT 74.7 % High 40.0-72.0 [facility] Comment on above: Performed By: #### L [id number] ####[facility] ([facility])[address] [place] [address] PHOSPHORUSon 08-16-2024 Magnesium [Mass/Vol] 3.8 mg/dL Normal 2.5-5.0 [facility] Comment on above: Performed By: #### L [id number] ####[facility] ([facility])[address] [place] [address] Magnesium [Mass/Vol] 1.8 mg/dL Low 2.5-5.0 [facility] Comment on above: Performed By: #### L [id number] ####[facility] ([facility])[address] [place] [address] POCT GLUCOSE METER UNSOLICIT ED RESULTSon 08-16-2024 Glucose [Mass/Vol] 189 mg/dL High 70-105 [facility] Comment on above: Order Comment: Waive d Testing in the ED is performed under the ED CLIA certificate #[id number]. Result Comment: ljon es Performed By: #### L [id number] ####[facility] ([facility])[address] [place] [address] Glucose [Mass/Vol] 205 mg/dL High 70-105 [facility] Comment on above: Order Comment: Waive d Testing in the ED is performed under the ED CLIA certificate #[id number]. Result Comment: rgil l Performed By: #### L [id number] ####[facility] ([facility])[address] [place] [address] Glucose [Mass/Vol] 200 mg/dL High 70-105 [facility] Comment on above: Order Comment: Waive d Testing in the ED is performed under the ED CLIA certificate #[id number]. Result Comment: [email or web address] [email or web address] Performed By: #### L [id number] ####[facility] ([facility])[address] [place] [address] Glucose [Mass/Vol] 207 mg/dL High 70-105 [facility] Comment on above: Order Comment: Waive d Testing in the ED is performed under the ED CLIA certificate #[id number]. Result Comment: oyod er Performed By: #### L [id number] ####[facility] ([facility])[address] [place] [address] POTASSIUMon 08-16-2024 Potassium [Moles/Vol] 3.3 mmol/L Low 3.5-5.1 [facility] Comment on above: Performed By: #### L [id number] ####[facility] (BANNER)[address] [place] [address] Potassium [Moles/Vol] 3.5 mmol/L Normal 3.5-5.1 [facility] Comment on above: Performed By: #### L [id number] ####[facility] ([place]ANNER)[address] [place] [address] POTASSIUM, WHOLE BLOODon Potassium [Moles/Vol] 3.5 mmol/L Normal 3.5-5.1 [facility] Comment on above: Performed By: #### P OTASSIUM, WHOLE BLOOD ####[facility] [id number] [place] [address] [place] SODIUM, WHOLE BLOODon 2024 SODIUM, WHOLE BLOOD Normal [facility] Comment on above: Result Comment: C^In calculable Performed By: #### S ODIUM, WHOLE BLOOD ####[facility] [id number] [place] [address] [place] TRIGLYCERIDESon 08-16-2024 FASTING? Unknown Normal [facility] Comment on above: Performed By: #### L [id number] ####[facility] (BEAKER)[address] [place] [address] Magnesium [Mass/Vol] 243 mg/dL High 40-149 [facility] Comment on above: Result Comment: TRIG LYCERIDE REFERENCE RANGE:20 YEARS AND OLDER CARDIOVASCULAR RISKLESS THAN 150 mg/dL LOW [id number] TO 199 mg/dL BORDERLINE WLST775 mg/dL AND GREATER HIGH RISK Performed By: #### L [id number] ####[facility] (BEAKER)[address] [place] [address] 30on 08-15-2024 30 Normal [facility] 30 Normal [facility] BLOOD CULTUREon 08-15-2024 Bacteria identified Cx Nom (Bld) No growth at [address] [facility] Comment on above: Order Comment: From a different site than #1. Performed By: #### L [id number] ####[facility] (BEAKER)[address] [place] [address] Basophils Auto (Bld) [#/Vol] on 08-15-2024 Basophils (Bld) [#/Vol] Automated basophil count 0.0-0.1 [facility] Basophils/100 WBC Auto (Bld) on 08-15-2024 Basophils/100 WBC (Bld) Automated basophil % Low 0.2-2.0 [facility] CALCIUM, IONIZEDon CALCIUM IONIZED (MMOL/L) IN BLOOD 1.23 mmol/L Normal 1.15-1.33 [facility] Comment on above: Performed By: #### C ALCIUM, IONIZED ####[facility] [id number] [place] [address] [place] CBC WITH AUTO DIFFERENTIALon 08-15-2024 Basophils (Bld) [#/Vol] 0.01 10*3/uL Normal 0.00-0.20 [facility] Comment on above: Performed By: #### L [id number] ####[facility] (BEAKER)[address] [place] [address] Basophils/100 WBC (Bld) 0.1 % Normal 0.0-1.0 [facility] Comment on above: Performed By: #### L [id number] ####[facility] ([facility]ER)[address] [place] [address] Eosinophils (Bld) [#/Vol] 0.01 10*3/uL Normal 0.00-0.50 [facility] Comment on above: Performed By: #### L [id number] ####[facility] ([facility] [place])[address] [place] [address] Eosinophils/100 WBC (Bld) 0.1 % Normal 0.0-6.0 [facility] Comment on above: Performed By: #### L [id number] ####[facility] ([facility])[address] [place] [address] Erythrocyte distribution width (RBC) [Ratio] 15.2 % High 11.5-15.0 [facility] Comment on above: Performed By: #### L [id number] ####[facility] ([facility])[address] [place] [address] ERYTHROCYTE MEAN CORPUSCULAR HEMOGLOBIN CONCENTRATION (G/DL) BY AUTOMATED 33.8 g/dL Normal 32.0-35.0 [facility] Comment on above: Performed By: #### L [id number] ####[facility] ([facility])[address] [place] [address] Hematocrit (Bld) [Volume fraction] 47.1 % Normal 39.0-55.0 [facility] Comment on above: Performed By: #### L [id number] ####[facility] (BEAKER)[address] [place] [address] Hemoglobin (Bld) [Mass/Vol] 15.9 g/dL Normal 13.0-17.0 [facility] Comment on above: Performed By: #### L [id number] ####[facility] ([facility])[address] [place] [address] Immature granulocytes (Bld) [#/Vol] 0.05 10*3/uL Normal 0.00-0.20 [facility] Comment on above: Performed By: #### L [id number] ####[facility] ([facility])[address] [facility] [place] [address] Immature granulocytes/100 WBC (Bld) 0.7 % Normal 0.0-1.0 [facility] Comment on above: Performed By: #### L [id number] ####[facility] ([facility])[address] [place] [address] Lymphocytes (Bld) [#/Vol] 0.54 10*3/uL Low 1.20-4.00 [facility] Comment on above: Performed By: #### L [id number] ####[facility] ([facility])[address] [place] [address] Lymphocytes/100 WBC (Bld) 7.2 % Low 20.0-45.0 [facility] Comment on above: Performed By: #### L [id number] ####[facility] ([facility])[address] [place] [address] MCH (RBC) [Entitic mass] 31.8 pg Normal 27.0-33.0 [facility] Comment on above: Performed By: #### L [id number] ####[facility] ([facility])[address] [place] [address] MCV (RBC) [Entitic vol] 94.2 fL Normal 82.0-98.0 [facility] Comment on above: Performed By: #### L [id number] ####[facility] ([facility])[address] [facility] [place] [address] Monocytes (Bld) [#/Vol] 1.23 10*3/uL High 0.10-1.00 [facility] Comment on above: Performed By: #### L [id number] ####[facility] ([facility])[address] [place] [address] Monocytes/100 WBC (Bld) 16.3 % High 5.0-12.0 [facility] Comment on above: Performed By: #### L [id number] ####[facility] ([facility]ER)[address] [place] [address] Neutrophils (Bld) [#/Vol] 5.70 10*3/uL Normal 1.60-7.60 [facility] Comment on above: Performed By: #### L [id number] ####[facility] ([facility])[address] [place] [address] Neutrophils/100 WBC (Bld) 75.6 % High 40.0-72.0 [facility] Comment on above: Performed By: #### L [id number] ####[facility] ([facility])[address] [place] [address] NRBC (PER 100 WBCS) BY AUTOMATED COUNT 0.3 % High 0 [facility] Comment on above: Performed By: #### L [id number] ####[facility] ([facility])[address] [place] [address] PLATELETS (10*3/UL) IN BLOOD AUTOMATED COUNT 237 10*3/uL Normal 150-400 [facility] Comment on above: Performed By: #### L [id number] ####[facility] ([facility])[address] [place], [place] [address] RBC (Bld) [#/Vol] 5.00 10*6/uL Normal 4.20-5.70 [facility] Comment on above: Performed By: #### L [id number] ####[facility] ([facility])[address] [place], [place] [address] WBC (Bld) [#/Vol] 7.54 10*3/uL Normal 4.00-10.60 [facility] Comment on above: Performed By: #### L [id number] ####[facility] ([facility])[address] [place] [address] COMPREHENSIVE METABOLIC PANE Kris 08-15-2024 Albumin [Mass/Vol] 2.9 g/dL Low 3.5-5.7 [facility] Comment on above: Performed By: #### L [id number] ####[facility] ([facility])[address] [place] [address] ALP [Catalytic activity/Vol] 58 U/L Normal 34-104 [facility] Comment on above: Performed By: #### L [id number] ####[facility] ([facility])[address] [place] [address] ALT [Catalytic activity/Vol] 21 U/L Normal 7-52 [facility] Comment on above: Performed By: #### L [id number] ####[facility] ([facility])[address] [place] [address] Anion gap [Moles/Vol] 13 mmol/L Normal 7-20 [facility] Comment on above: Performed By: #### L [id number] ####[facility] ([facility])[address] [place] [address] AST [Catalytic activity/Vol] 29 U/L Normal 13-39 [facility] Comment on above: Performed By: #### L [id number] ####[facility] ([facility])[address] [place] [address] Bilirubin [Mass/Vol] 1.0 mg/dL Normal 0.3-1.0 [facility] Comment on above: Performed By: #### L [id number] ####[facility] ([facility])[address] [place] [address] Calcium [Mass/Vol] 8.2 mg/dL Low 8.6-10.3 [facility] Comment on above: Performed By: #### L [id number] ####[facility] ([facility])[address] [place] [address] Chloride [Moles/Vol] 90 mmol/L Low 98-107 [facility] Comment on above: Performed By: #### L [id number] ####[facility] ([facility])[address] [place] [address] CO2 [Moles/Vol] 32 mmol/L High 21-31 [facility] Comment on above: Performed By: #### L [id number] ####[facility] ([facility])[address] [place] [address] Creatinine [Mass/Vol] 1.17 mg/dL Normal 0.70-1.30 [facility] Comment on above: Performed By: #### L [id number] ####[facility] ([facility])[address] [place] [address] GLOMERULAR FILTRATION RATE ML/MIN/1.73 SQ M.PREDICTED 69.2 mL/min/1.73m*2 Normal >60.[address] [facility] Comment on above: Result Comment: [facility]???s estimated glomerular filtration rate (eGFR) will [...] of individuals. Performed By: #### L [id number] ####[facility] ([facility])[address] [place] [address] Glucose [Mass/Vol] 219 mg/dL High 70-100 [facility] Comment on above: Performed By: #### L [id number] ####[facility] ([facility])[address] [place] [address] Potassium [Moles/Vol] 4.0 mmol/L Normal 3.5-5.1 [facility] Comment on above: Performed By: #### L [id number] ####[facility] ([facility])[address] [place] [address] Protein [Mass/Vol] 5.5 g/dL Low 6.0-8.3 [facility] Comment on above: Performed By: #### L [id number] ####[facility] ([facility])[address] [place] [address] Sodium [Moles/Vol] 131 mmol/L Low 136-145 [facility] Comment on above: Performed By: #### L [id number] ####[facility] ([facility])[address] [place] [address] Urea nitrogen [Mass/Vol] 42 mg/dL High 7-25 [facility] Comment on above: Performed By: #### L [id number] ####[facility] ([facility])[address] [place] [address] UREA NITROGEN/CREATININE (MASS RATIO) IN SER/PLAS 35.9 Normal [facility] Comment on above: Performed By: #### L [id number] ####[facility] ([facility])[address] [place] [address] Eosinophils/100 WBC Auto (Bl d)on 08-15-2024 Eosinophils/100 WBC (Bld) Automated eosinophil % Low 0.9-7.0 [facility] Erythrocyte distribution wid th Auto (RBC) [Ratio]on 08-15-2024 Erythrocyte distribution width (RBC) [Ratio] Erythrocyte distribution width [Ratio] by Automated count High 11.0-15.0 [facility] Estimated glomerular filtrat ion rate (GFR) non- Americanon 08-15-2024 GFR/1.73 sq M.predicted among non-blacks MDRD (S/P/Bld) [Vol rate/Area] Estimated glomerular filtration rate (GFR) non- Low >=60 mL/min/1.73m 2 [facility] Globulin Calc (S) [Mass/Vol] on 08-15-2024 Globulin (S) [Mass/Vol] Serum globulin measurement by calculation (mass/volume) [facility] HEMOGLOBIN A1Con 08-15-2024 Glucose [Mass/Vol] 189 mg/dL Normal [facility] Comment on above: Performed By: #### L [id number] ####[facility] ([facility])[address] [place] [address] HbA1c (Bld) [Mass fraction] 8.2 % High 4.0-6.0 [facility] Comment on above: Performed By: #### L [id number] ####[facility] ([facility])[address] [place] [address] HPon 08-15-2024 HP Normal [facility] Hematocrit Auto (Bld) [Volum e fraction]on 08-15-2024 Hematocrit (Bld) [Volume fraction] Hematocrit [Volume Fraction] of Blood by Automated count 42.0-54.0 [facility] Hemoglobin [Mass/volume] in Bloodon 08-15-2024 Hemoglobin (Bld) [Mass/Vol] Hemoglobin [Mass/volume] in Blood 14.0-18.0 [facility] LIPASEon 08-15-2024 LIPASE (U/L) IN SER/PLAS 28 U/L Normal 11-82 [facility] Comment on above: Result Comment: M-CH EMISTRY SPECIMEN MODERATELY HEMOLYZED RESULTS MAY NOT BE ACCURATE Performed By: #### L [id number] ####[facility] ([facility])[address] [place] [address] Laboratory - Chemistry and C hemistry - challengeon 08-15-2024 HCO3 (Bld) [Moles/Vol] 34.7 mmol/L High 22.0-26.0 [facility] Albumin [Mass/Vol] 2.6 g/dL Low 3.4-5.0 [facility] ALP [Catalytic activity/Vol] 81 U/L 46-116 [facility] ALT [Catalytic activity/Vol] 37 U/L 16-63 [facility] AST [Catalytic activity/Vol] 28 U/L 15-37 [facility] Bilirubin [Mass/Vol] 1.2 mg/dL High 0.2-1.0 [facility] Calcium [Mass/Vol] 9.2 mg/dL 8.5-10.1 [facility] Chloride [Moles/Vol] 101 mmol/L 98-107 [facility] CO2 [Moles/Vol] 35.4 mmol/L High 21.0-32.0 [facility] Creatinine [Mass/Vol] 1.66 mg/dL High 0.70-1.30 [facility] GFR/1.73 sq M.predicted MDRD (S/P/Bld) [Vol rate/Area] 51 mL/min/{1.73_m2} Low >=60 mL/min/1.73m 2 [facility] Glucose [Mass/Vol] 268 mg/dL High 74-106 [facility] Potassium [Moles/Vol] 3.8 mmol/L 3.5-5.1 [facility] Protein [Mass/Vol] 6.3 g/dL Low 6.4-8.2 [facility] Sodium [Moles/Vol] 143 mmol/L 136-145 [facility] Urea nitrogen [Mass/Vol] 52.0 mg/dL High 7.0-18.0 [facility] Urea nitrogen/Creatinine [Mass ratio] 31.3 mg/mg [facility] Laboratory - Hematology and Cell countson 08-15-2024 Immature granulocytes/100 WBC (Bld) 0.8 % High 0.0-0.5 [facility] Leukocytes [#/volume] correc beatris for nucleated erythrocytes in Blood by Automated counon 08-15-2024 WBC corrected for nucl RBC Auto (Bld) [#/Vol] Leukocytes [#/volume] corrected for nucleated erythrocytes in Blood by Automated coun 4.0-11.0 [facility] Lymphocytes Auto (Bld) [#/Vo l]on 08-15-2024 Lymphocytes (Bld) [#/Vol] Lymphocytes [#/volume] in Blood by Automated count Low 1.2-3.8 [facility] Lymphocytes/100 WBC Auto (Bl d)on 08-15-2024 Lymphocytes/100 WBC (Bld) Lymphocytes/100 leukocytes in Blood by Automated count Low 20.5-60.0 [facility] MAGNESIUMon 08-15-2024 Magnesium [Mass/Vol] 1.6 mg/dL Low 1.9-2.7 [facility] Comment on above: Performed By: #### L [id number] ####[facility] ([facility]AKER)[address] [place] [address] MCH Auto (RBC) [Entitic mass ]on 08-15-2024 MCH (RBC) [Entitic mass] MCH [Entitic mass] by Automated count 25.9-34.0 [facility] MCHC Auto (RBC) [Mass/Vol]on 08-15-2024 MCHC (RBC) [Mass/Vol] MCHC [Mass/volume] by Automated count 29.9-35.2 [facility] MCV Auto (RBC) [Entitic vol] on 08-15-2024 MCV (RBC) [Entitic vol] MCV [Entitic volume] by Automated count 80.0-94.0 [facility] MRSA/MSSA DNA NASALon 2024 MRSA DNA Negative Normal Negative [facility] Comment on above: Order Comment: Testi [...] preclude nasal colonization. Performed By: #### L [id number] ####[facility] ([facility])[address] [place] [address] MSSA DNA Negative Normal Negative [facility] Comment on above: Order Comment: Testi [...] preclude nasal colonization. Performed By: #### L [id number] ####[facility] ([facility]AKER)[address] [place] [address] Monocytes Auto (Bld) [#/Vol] on 08-15-2024 Monocytes (Bld) [#/Vol] Automated blood monocyte count 0.3-0.8 [facility] Monocytes/100 WBC Auto (Bld) on 08-15-2024 Monocytes/100 WBC (Bld) Automated monocyte % 1.7-12.0 [facility] Neutrophils Auto (Bld) [#/Vo l]on 08-15-2024 Neutrophils (Bld) [#/Vol] Neutrophils [#/volume] in Blood by Automated count 1.4-6.5 [facility] Neutrophils/100 WBC Auto (Bl d)on 08-15-2024 Neutrophils/100 WBC (Bld) Automated neutrophil % High 43.0-75.0 [facility] No Panel Informationon 08-15 Avinash Test Positive POSITIVE [facility] Arterial Blood Base Excess 11.0 mmol/L High <2.0-2.0 [facility] Arterial Blood Oxygen Saturation 97.0 % [facility] Arterial Blood Partial Pressure CO2 47.8 mm[Hg] High 35.0-45.0 [facility] Arterial Blood Partial Pressure O2 81.0 mm[Hg] 80.0-100.0 [facility] Arterial Blood pH 7.469 High 7.350-7.450 [facility] Blood Gas PEEP 8 [facility] Blood Gas Sample Site RIGHT RADIAL F [facility] Blood Gas Set Respiration Rate 22 [facility] Blood Gas Tidal Volume [address] [facility] Blood Gas Ventilator Mode AC/VC [facility] FiO2 90 % [facility] Oxygen Delivery Device VENT Fi [facility] Reference Lab Test #2 Result 13.8 [facility] Eosinophils # (Auto) 0.0 10 3/uL 0.0-0.7 [facility] Immature Granulocyte # (Auto) 0.06 10 3/uL High 0.00-0.03 [facility] PHOSPHORUSon 08-15-2024 Magnesium [Mass/Vol] 2.7 mg/dL Normal 2.5-5.0 [facility] Comment on above: Performed By: #### L [id number] ####[facility] (BEAKER)[address] [place] [address] POCT GLUCOSE METER UNSOLICIT ED RESULTSon 08-15-2024 Glucose [Mass/Vol] 249 mg/dL High 70-105 [facility] Comment on above: Order Comment: Waive d Testing in the ED is performed under the ED CLIA certificate #[id number]. Result Comment: oyod er Performed By: #### L [id number] ####[facility] (BEAKER)[address] [place] [address] Glucose [Mass/Vol] 217 mg/dL High 70-105 [facility] Comment on above: Order Comment: Waive d Testing in the ED is performed under the ED CLIA certificate #[id number]. Result Comment: bmen [email or web address] Performed By: #### L [id number] ####[facility] (BEAKER)[address] [place] [address] Glucose [Mass/Vol] 233 mg/dL High 70-105 [facility] Comment on above: Order Comment: Waive d Testing in the ED is performed under the ED CLIA certificate #[id number]. Result Comment: bmen [email or web address] Performed By: #### L [id number] ####[facility] (BEAKER)[address] [place] [address] POTASSIUM, WHOLE BLOODon Potassium [Moles/Vol] 3.4 mmol/L Low 3.5-5.1 [facility] Comment on above: Performed By: #### P OTASSIUM, WHOLE BLOOD ####[facility] [id number] [place] [address] [facility] Platelet mean volume Auto (B ld) [Entitic vol]on 08-15-2024 Platelet mean volume (Bld) [Entitic vol] Platelet mean volume [Entitic volume] in Blood by Automated count 9.5-13.5 [facility] Platelets Auto (Bld) [#/Vol] on 08-15-2024 Platelets (Bld) [#/Vol] Platelets [#/volume] in Blood by Automated count 150-450 [facility] RBC Auto (Bld) [#/Vol]on RBC (Bld) [#/Vol] Erythrocytes [#/volume] in Blood by Automated count 4.70-6.10 [facility] SODIUM, WHOLE BLOODon 2024 SODIUM, WHOLE BLOOD 136 Normal 136-145 [facility] Comment on above: Performed By: #### S ODIUM, WHOLE BLOOD ####[facility] [id number] [place] [address] [facility] Serum or plasma albumin/glob ulin mass ratioon 08-15-2024 Albumin/Globulin [Mass ratio] Serum or plasma albumin/globulin mass ratio [facility] Serum or plasma anion gap de terminationon 08-15-2024 Anion gap [Moles/Vol] Serum or plasma an ion gap determination [facility] TRIGLYCERIDESon 08-15-2024 FASTING? unknown Normal [facility] Comment on above: Order Comment: Monit or triglycerides while patient is on propofol. Consult Nutrition if greater than 500 mg/dL. Performed By: #### L [id number] ####[facility] ([facility])[address] [place] [address] Magnesium [Mass/Vol] 3920 mg/dL High 40-149 [facility] Comment on above: Order Comment: Monit or triglycerides while patient is on propofol. Consult Nutrition if greater than 500 mg/dL. Result Comment: TRIG LYCERIDE REFERENCE RANGE:20 YEARS AND OLDER CARDIOVASCULAR RISKLESS THAN 150 mg/dL LOW [id number] TO 199 mg/dL BORDERLINE [id number] mg/dL AND GREATER HIGH RISK Performed By: #### L [id number] ####[facility] ([facility])[address] [place] [address] TROPONIN Ion 08-15-2024 Troponin I.cardiac [Mass/Vol] 0.04 ng/mL Normal 0.00-0.04 [facility] Comment on above: Performed By: #### L [id number] ####[facility] ([facility])[address] [place] [address] URINALYSIS WITH MICROSCOPICo n 08-15-2024 BILIRUBIN, TOTAL PRESENCE IN URINE Negative Normal Negative [facility] Comment on above: Performed By: #### L [id number] ####[facility] ([facility])[address] [place] [address] Clarity (U) Clear Normal Clear [facility] Comment on above: Performed By: #### L [id number] ####[facility] ([facility])[address] [place] [address] Color (U) Colorless Normal Colorless, Yellow, Light-Yellow [facility] Comment on above: Performed By: #### L [id number] ####[facility] (BEAKER)[address] [place] [address] GLUCOSE (MG/DL) IN URINE Normal Normal Normal [facility] Comment on above: Performed By: #### L [id number] ####[facility] (BEAKER)[address] [place] [address] HEMOGLOBIN PRESENCE IN URINE Small Abnormal Negative [facility] Comment on above: Performed By: #### L [id number] ####[facility] (BEAKER)[address] [place] [address] Ketones Ql (U) Negative Normal Negative [facility] Comment on above: Performed By: #### L [id number] ####[facility] ([facility])[address] [place] [address] LEUKOCYTE ESTERASE PRESENCE IN URINE BY TEST STRIP Negative Normal Negative [facility] Comment on above: Performed By: #### L [id number] ####[facility] ([facility])[address] [place] [address] MUCUS (#/LPF) IN URINE SEDIMENT Occasional Normal None Seen, Occasional, Few [facility] Comment on above: Performed By: #### L [id number] ####[facility] ([facility]ER)[address] [place] [address] NITRITE PRESENCE IN URINE Negative Normal Negative [facility] Comment on above: Performed By: #### L [id number] ####[facility] (BEAKER)[address] [place] [address] pH (U) 5.5 [pH] Normal 5.0-8.0 [facility] Comment on above: Performed By: #### L [id number] ####[facility] (BEAKER)[address] [place] [address] Protein (U) [Mass/Vol] Negative Normal [facility] on above: Performed By: #### L [id number] ####[facility] (BEAKER)[address] [place] [address] RBC (#/HPF) IN URINE SEDIMENT 11-20 Abnormal None Seen, 0-2 [facility] Comment on above: Performed By: #### L [id number] ####[facility] (BEAKER)[address] [place] [address] Specific gravity (U) [Rel density] 1.011 Normal 1.010-1.030 [facility] Comment on above: Performed By: #### L [id number] ####[facility] ([facility] [place] [address] SQUAMOUS EPITHELIAL CELLS (#/LPF) IN URINE SEDIMENT None Seen Normal None Seen, Occasional, Few [facility] Comment on above: Performed By: #### L [id number] ####[facility] ([facility]AKER)[address] [place] [address] UROBILINOGEN (MG/DL) IN URINE Normal Normal Normal [facility] Comment on above: Performed By: #### L [id number] ####[facility] ([facility])[address] [place] [address] WBC (LEUKOCYTE) (#/HPF) IN URINE SEDIMENT 3-5 Abnormal None Seen, 0-2 [facility] Comment on above: Performed By: #### L [id number] ####[facility] ([facility])[address] [place] [address] Basophils Auto (Bld) [#/Vol] on 08-14-2024 Basophils (Bld) [#/Vol] Automated basophil count 0.0-0.1 [facility] Basophils/100 WBC Auto (Bld) on 08-14-2024 Basophils/100 WBC (Bld) Automated basophil % 0.2-2.0 [facility] Eosinophils/100 WBC Auto (Bl d)on 08-14-2024 Eosinophils/100 WBC (Bld) Automated eosinophil % Low 0.9-7.0 [facility] Erythrocyte distribution wid th Auto (RBC) [Ratio]on 08-14-2024 Erythrocyte distribution width (RBC) [Ratio] Erythrocyte distribution width [Ratio] by Automated count High 11.0-15.0 [facility] Estimated glomerular filtrat ion rate (GFR) non- Americanon 08-14-2024 GFR/1.73 sq M.predicted among non-blacks MDRD (S/P/Bld) [Vol rate/Area] Estimated glomerular filtration rate (GFR) non- Low >=60 mL/min/1.73m 2 [facility] Globulin Calc (S) [Mass/Vol] on 08-14-2024 Globulin (S) [Mass/Vol] Serum globulin measurement by calculation (mass/volume) [facility] Hematocrit Auto (Bld) [Volum e fraction]on 08-14-2024 Hematocrit (Bld) [Volume fraction] Hematocrit [Volume Fraction] of Blood by Automated count 42.0-54.0 [facility] Hemoglobin [Mass/volume] in Bloodon 08-14-2024 Hemoglobin (Bld) [Mass/Vol] Hemoglobin [Mass/volume] in Blood 14.0-18.0 [facility] Laboratory - Chemistry and C hemistry - challengeon 08-14-2024 HCO3 (Bld) [Moles/Vol] 30.8 mmol/L High 22.0-26.0 [facility] Albumin [Mass/Vol] 2.4 g/dL Low 3.4-5.0 [facility] ALP [Catalytic activity/Vol] 82 U/L 46-116 [facility] ALT [Catalytic activity/Vol] 39 U/L 16-63 [facility] AST [Catalytic activity/Vol] 24 U/L 15-37 [facility] Bilirubin [Mass/Vol] 1.1 mg/dL High 0.2-1.0 [facility] Calcium [Mass/Vol] 8.6 mg/dL 8.5-10.1 [facility] Chloride [Moles/Vol] 102 mmol/L 98-107 [facility] CO2 [Moles/Vol] 32.4 mmol/L High 21.0-32.0 [facility] Creatinine [Mass/Vol] 1.64 mg/dL High 0.70-1.30 [facility] GFR/1.73 sq M.predicted MDRD (S/P/Bld) [Vol rate/Area] 51 mL/min/{1.73_m2} Low >=60 mL/min/1.73m 2 [facility] Glucose [Mass/Vol] 194 mg/dL High 74-106 [facility] Potassium [Moles/Vol] 3.9 mmol/L 3.5-5.1 [facility] Protein [Mass/Vol] 5.8 g/dL Low 6.4-8.2 [facility] Sodium [Moles/Vol] 140 mmol/L 136-145 [facility] Urea nitrogen [Mass/Vol] 54.0 mg/dL High 7.0-18.0 [facility] Urea nitrogen/Creatinine [Mass ratio] 32.9 mg/mg [facility] Laboratory - Hematology and Cell countson 08-14-2024 Immature granulocytes/100 WBC (Bld) 0.8 % High 0.0-0.5 [facility] Leukocytes [#/volume] correc beatris for nucleated erythrocytes in Blood by Automated counon 08-14-2024 WBC corrected for nucl RBC Auto (Bld) [#/Vol] Leukocytes [#/volume] corrected for nucleated erythrocytes in Blood by Automated coun 4.0-11.0 [facility] Lymphocytes Auto (Bld) [#/Vo l]on 08-14-2024 Lymphocytes (Bld) [#/Vol] Lymphocytes [#/volume] in Blood by Automated count Low 1.2-3.8 [facility] Lymphocytes/100 WBC Auto (Bl d)on 08-14-2024 Lymphocytes/100 WBC (Bld) Lymphocytes/100 leukocytes in Blood by Automated count Low 20.5-60.0 [facility] MCH Auto (RBC) [Entitic mass ]on 08-14-2024 MCH (RBC) [Entitic mass] MCH [Entitic mass] by Automated count 25.9-34.0 [facility] MCHC Auto (RBC) [Mass/Vol]on 08-14-2024 MCHC (RBC) [Mass/Vol] MCHC [Mass/volume] by Automated count 29.9-35.2 [facility] MCV Auto (RBC) [Entitic vol] on 08-14-2024 MCV (RBC) [Entitic vol] MCV [Entitic volume] by Automated count High 80.0-94.0 [facility] Monocytes Auto (Bld) [#/Vol] on 08-14-2024 Monocytes (Bld) [#/Vol] Automated blood monocyte count 0.3-0.8 [facility] Monocytes/100 WBC Auto (Bld) on 08-14-2024 Monocytes/100 WBC (Bld) Automated monocyte % 1.7-12.0 [facility] Neutrophils Auto (Bld) [#/Vo l]on 08-14-2024 Neutrophils (Bld) [#/Vol] Neutrophils [#/volume] in Blood by Automated count 1.4-6.5 [facility] Neutrophils/100 WBC Auto (Bl d)on 08-14-2024 Neutrophils/100 WBC (Bld) Automated neutrophil % High 43.0-75.0 [facility] No Panel Informationon 08-14 Avinash Test Positive POSITIVE [facility] Arterial Blood Base Excess 6.2 mmol/L High <2.0-2.0 [facility] Arterial Blood Oxygen Saturation 93.3 % [facility] Arterial Blood Partial Pressure CO2 48.3 mm[Hg] High 35.0-45.0 [facility] Arterial Blood Partial Pressure O2 62.0 mm[Hg] Low 80.0-100.0 [facility] Arterial Blood pH 7.413 7.350-7.450 [facility] Blood Gas PEEP +8 [facility] Blood Gas Sample Site RIGHT RADIAL F [facility] Blood Gas Set Respiration Rate 22 [facility] Blood Gas Tidal Volume [address] [facility] Blood Gas Ventilator Mode AC [facility] FiO2 100 % [facility] Oxygen Delivery Device VENT Fi [facility] Eosinophils # (Auto) 0.0 10 3/uL 0.0-0.7 [facility] Immature Granulocyte # (Auto) 0.05 10 3/uL High 0.00-0.03 [facility] Platelet mean volume Auto (B ld) [Entitic vol]on 08-14-2024 Platelet mean volume (Bld) [Entitic vol] Platelet mean volume [Entitic volume] in Blood by Automated count 9.5-13.5 [facility] Platelets Auto (Bld) [#/Vol] on 08-14-2024 Platelets (Bld) [#/Vol] Platelets [#/volume] in Blood by Automated count 150-450 [facility] RBC Auto (Bld) [#/Vol]on RBC (Bld) [#/Vol] Erythrocytes [#/volume] in Blood by Automated count 4.70-6.10 [facility] Serum or plasma albumin/glob ulin mass ratioon 08-14-2024 Albumin/Globulin [Mass ratio] Serum or plasma albumin/globulin mass ratio [facility] Serum or plasma anion gap de terminationon 08-14-2024 Anion gap [Moles/Vol] Serum or plasma an ion gap determination [facility] URINE CULTURE, ROUTINEon Bacteria identified Cx Nom (U) Urine Culture, Routine [facility] Healthcare Bacteria identified Cx Nom (U) No growth [facility] Bacteria identified Cx Nom (U) Performed at: [facility] Bacteria identified Cx Nom (U) [address] [place] [address] [phone] [facility] Bacteria identified Cx Nom (U) Contact Printer Dry Film: Tyron Saeed PhD, Phone: [phone] [facility] Basophils Auto (Bld) [#/Vol] on 04-08-2024 Basophils (Bld) [#/Vol] 0.1 10 3/uL 0.0-0.1 [facility] Basophils/100 WBC Auto (Bld) on 04-08-2024 Basophils/100 WBC (Bld) 0.4 % 0.2-2.0 [facility] Eosinophils/100 WBC Auto (Bl d)on 04-08-2024 [...] 14.7 g/dL 14.0-18.0 [facility] Kris 04-08-2024 L Specimen: [id number] Received: 04/09/24 Status: SOU Req Num: [id number] Spec Type: Surgical Subm Dr: Rc Curtis DPM, MS Tissues: A Extremity - Amputation, Non-Traumatic (R FOREFOOT) B Extremity - Amputation, Non-Traumatic (R FIRST METATARSEL) Procedures: HE/5, Gross/Micro L5/2, Decalcification/2 Age/ Patient Sex Location Account Attending Physician Tyler Mckinney W 63/M LABELL [id number] Rc Curtis DPM, MS SPEC NUM: [id number] RECD: 04/09/24 STATUS: [facility] REQ NUM: [id number] KATHIE: 04/08/[address]: Rc Curtis DPM, MS ENTERED: 04/09/[address] [facility] [address]: Ekta Heath SPEC TYPE: Surgical DEPT: ALEJANDRO JACOBS ENTERED BY: [id number] RECV BY: [id number] ORDERED: HE/5, Gross/Micro L5/2, Decalcification/2 ORDERED: HE/5, [...] of the ulcerated lesion reveals -------- Specimen: [id number] Received: 04/09/24 Status: TAMI Colon Num: [id number] Spec Type: Surgical Subm Dr: Rc Curtis,DPM, MS Tissues: A Extremity - Amputation, Non-Traumatic (R FOREFOOT) B Extremity - Amputation, Non-Traumatic (R FIRST METATARSEL) Procedures: HE/5, Gross/Micro L5/2, Decalcification/2 -------- Patient: Tyler Mckinney [id number] (Continued) -------- Specimen: [id number] Received: 04/09/24 (Continued) Gross Description (Continued) Signed (signature on file) Genaro Zamora MD 04/19/24 1844 -------- Specimen: [id number] Received: 04/09/24 Status: TAMI Colon Num: [id number] Spec Type: Surgical Subm Dr: Rc Curtis,DPM, MS Tissues: A Extremity - Amputation, Non-Traumatic (R FOREFOOT) B Extremity - Amputation, Non-Traumatic (R FIRST METATARSEL) Procedures: HE/5, Gross/Micro L5/2, Decalcification/2 -------- Patient: Tyler Mckinney [id number] (Continued) -------- Specimen: [id number] Received: 04/09/24 (Continued) Gross Description (Continued) exposed bone. The lesion is abutting the soft tissue margin. The resection margin of the metatarsals are inked first blue, second green, third yellow, fourth orange, fifth red. Distance Learning Program Coordinator sections are as follows: A1 soft tissue margin en face A2 first metatarsal bone margin en face, (submitted in decal before routine processing) A3 remaining metatarsal bone margins en face, (submitted in decal before routine processing) A4 solar manufacturer's representative section of the lesion with distal [...] performed supporting the above interpretation CPT Codes 20615 13108 25313 x2 -------- -------- Specimen: [id number] Received: 04/09/24 Status: TAMI Colon Num: [id number] Spec (more content not included)... Normal [facility] Laboratory - Chemistry and C hemistry - challengeon 04-08-2024 Calcium [Mass/Vol] 10.6 mg/dL High 8.5-10.1 [facility] Chloride [Moles/Vol] 98 mmol/L 98-107 [facility] CO2 [Moles/Vol] 34.6 mmol/L High 21.0-32.0 [facility] Creatinine [Mass/Vol] 1.03 mg/dL 0.70-1.30 [facility] GFR/1.73 sq M.predicted MDRD (S/P/Bld) [Vol rate/Area] mL/min/{1.73_m2} >=60 [facility] Glucose [Mass/Vol] 178 mg/dL High 74-106 [facility] Potassium [Moles/Vol] 4.4 mmol/L 3.5-5.1 [facility] Sodium [Moles/Vol] 135 mmol/L Low 136-145 [facility] Urea nitrogen [Mass/Vol] 16.0 mg/dL [...] 04-08-2024 MCHC (RBC) [Mass/Vol] 32.6 g/dL 29.9-35.2 [facility] MCV Auto (RBC) [Entitic vol] on 04-08-2024 MCV (RBC) [Entitic vol] 95.6 fL High 80.0-94.0 [facility] Monocytes Auto (Bld) [#/Vol] on 04-08-2024 Monocytes (Bld) [#/Vol] 1.0 10 3/uL High 0.3-0.8 [facility] Monocytes/100 WBC Auto (Bld) on 04-08-2024 Monocytes/100 WBC (Bld) 7.3 % 1.7-12.0 [facility] Neutrophils Auto (Bld) [#/Vo l]on 04-08-2024 Neutrophils (Bld) [#/Vol] 10.3 10 3/uL High 1.4-6.5 [facility] Neutrophils/100 WBC Auto (Bl d)on 04-08-2024 Neutrophils/100 WBC (Bld) 77.0 % High 43.0-75.0 [facility] No Panel InformationOrdered By: Rc Curtis on 04-08-2024 Acid Fast Smear [facility] AFB Specimen Processing [facility] Anaerobic Cult, Extended Incub [facility] Tissue Culture [facility] No Panel Informationon 04-08 Fungal Smear Result \R\ Fungus Stain [facility] Gram Stain Result 1 \R\ Gram Stain Result [facility] Miscellaneous Test Comment See comment [facility] Comment on above: Specimen Source: ELENA TRT - Foot Right - Foot Rt - 604.000 Eosinophils # (Auto) 0.2 10 3/uL 0.0-0.7 [facility] Immature Granulocyte # (Auto) 0.15 10 [...] RBC (Bld) [#/Vol] 4.72 10 6/uL 4.70-6.[address] [facility] Serum or plasma anion gap de terminationon 04-08-2024 Anion gap [Moles/Vol] 6.8 mmol/L [facility] ALL CBC WITH AUTO DIFFon BASOPHILS ABSOLUTE AUTO 0.1 [facility] Basophils/100 WBC (Bld) 0.6 % 0.2 - 2.0 % [facility] Eosinophils/100 WBC (Bld) 2.1 % 0.9 - 7.0 % [facility] Erythrocyte distribution width (RBC) [Ratio] 14.0 % 11.0 - 15.0 % [facility] Hematocrit (Bld) [Volume fraction] 41.9 % Low 42.0 - 54.0 % [facility] Hemoglobin (Bld) [Mass/Vol] 13.7 g/dL Low 14.0 - 18.0 g/dL [facility] IMMATURE GRANULOCYTES ABS AUTO 0.46 High [facility] Immature granulocytes/100 WBC (Bld) 2.9 % High 0.0 - 0.5 % [facility] Interpretation and review of laboratory results Abnormal [facility] LYMPHOCYTES ABSOLUTE AUTO 2.3 [facility] Lymphocytes/100 WBC (Bld) 14.7 % Low 20.5 - 60.0 % [facility] MCH (RBC) [Entitic mass] 31.5 pg 25.9 - 34.0 pg [facility] MCHC (RBC) [Mass/Vol] 32.7 g/dL 29.9 - 35.2 g/dL [facility] MCV (RBC) [Entitic vol] 96.3 fL High 80.0 - 94.0 fL [facility] MONOCYTES ABSOLUTE AUTO 1.2 High [facility] Monocytes/100 WBC (Bld) 7.8 % 1.7 - 12.0 % [facility] NEUTROPHILS ABSOLUTE AUTO 11.4 High [facility] Neutrophils/100 WBC (Bld) 71.9 % 43.0 - 75.0 % [facility] Platelet mean volume (Bld) [Entitic vol] 10.2 fL 9.5 - 13.5 fL [facility] TBH EO # 0.3 [facility] TBH PLT 475 High [facility] TB RBC 4.35 Low [facility] TBH WBC 15.8 High [facility] Kris 03-29-2024 L Specimen: [id number] Received: 03/29/247396 Status: [facility] Num: [id number] Spec Type: Surgical Subm Dr: Rc Curtis,DPM, MS Tissues: A Bone Fragments - Other than Path Fracture (R 1 METARSAL BONE) Procedures: HE, Gross/Micro L3, Decalcification Age/ Patient Sex Location Account Attending Physician Tyler Mckinney W 63/M LABELL [id number] Rc Curtis DPM, MS SPEC NUM: [id number] RECD: 03/29/24 STATUS: TAMI COLON NUM: [id number] KATHIE: 03/29/[address]: Rc Curtis DPM, MS ENTERED: 03/29/[address] [facility] [address]: Ekta Heath SPEC TYPE: Surgical DEPT: ALEJANDRO JACOBS ENTERED BY: [id number] RECV BY: [id number] ORDERED: HE, Gross/Micro L3, Decalcification ORDERED: HE, [...] performed supporting the above interpretation -------- Specimen: [id number] Received: 03/29/24 Status: TAMI Darlene Num: [id number] Spec Type: Surgical Subm Dr: Rc Curtis DPM, MS Tissues: A Bone Fragments - Other than Path Fracture (R 1 METARSAL BONE) Procedures: HE, Gross/Micro L3, Decalcification -------- Patient: Tyler Mckinney [id number] (Continued) -------- Specimen: [id number] Received: 03/29/24 (Continued) Signed (signature on file) Genaro Zamora MD 04/05/241707 -------- Specimen: [id number] Received: 03/29/24 Status: TAMI Colon Num: [id number] Spec Type: Surgical Subm Dr: Rc Curtis,DPM, MS Tissues: A Bone Fragments - Other than Path Fracture (R 1 METARSAL BONE) Procedures: DUNCAN, Gross/Micro L3, Decalcification -------- Patient: Tyler Mckinney [id number] (Continued) -------- Specimen: [id number] Received: 03/29/24 (Continued) CPT Codes 43553 47883 -------- -------- Specimen: [id number] Received: 03/29/24 Status: TAIM Colon Num: [id number] Spec Type: Surgical Subm Dr: Rc Curtis,DPShantell, MS Tissues: A Bone Fragments - Other than Path Fracture (R 1 METARSAL BONE) Procedures: DUNCAN, Gross/Micro L3, Decalcification -------- Patient: Tyler Mckinney [id number] (Continued) -------- Signed (signature on file) Genaro Zamora MD 04/05/24 1708 Normal [facility] XR FOOT LT MIN 3 [...] Normal The [facility] GLYCOHEMOGLOBIN A1Con 2021 ADA RECOMMENDATION SEE BELOW Normal [facility] Comment on above: Result Comment: ADA RECOMMENDED LIMIT 4.0 - 6.0 ADA THERAPEUTIC TARGET < 7.0 ACTION SUGGESTED > 7.0 Performed By: #### A 1C #### [facility] Laboratory [address] [address] [address] Jennifer Zamora Glucose [Mass/Vol] 212 mg/dL Normal [facility] Comment on above: Performed By: #### A 1C #### [facility] [address] [address] [address] Jennifer Zamora HbA1c (Bld) [Mass fraction] 9.0 % Critically high 4.5-6.2 [facility] Comment on above: Performed By: #### A 1C #### [facility] [address] [address] [address] Jennifer Zamora PROF 14(COMP METB)on 022 Albumin [Mass/Vol] 3.4 g/dL Normal 3.4-5.0 [facility] Comment on above: Performed By: #### C MP #### [facility] [address] [place] [address] Dr. Jennifer Zamora Albumin/Globulin [Mass ratio] 0.9 {ratio} Normal [facility] Comment on above: Performed By: #### C MP #### [facility] [address] [address] [address] Jennifer Zamora ALP [Catalytic activity/Vol] 108 U/L Normal 46-116 [facility] Comment on above: Performed By: #### C MP #### [facility] [address] [place] [address] Dr. Jennifer Zamora ALT [Catalytic activity/Vol] 35 U/L Normal 16-63 [facility] Comment on above: Performed By: #### C MP #### [facility] [address] [place] [address] Dr. Jennifer Zamora Anion gap [Moles/Vol] 7.0 mmol/L Normal [facility] Comment on above: Performed By: #### C MP #### [facility] [address] [place] [address] Dr. Jennifer Zamora AST [Catalytic activity/Vol] 11 U/L Critically low 15-37 [facility] Comment on above: Performed By: #### C MP #### [facility] [address] [place] [address] Dr. Jennifer Zamora Bilirubin [Mass/Vol] 0.7 mg/dL Normal 0.2-1.0 [facility] Comment on above: Performed By: #### C MP #### [facility] [address] [place] [address] Dr. Jennifer Zamora Calcium [Mass/Vol] 8.9 mg/dL Normal 8.5-10.1 [facility] Comment on above: Performed By: #### C MP #### [facility] [address] [place] [address] Dr. Jennifer Zamora Chloride [Moles/Vol] 100 mmol/L Normal 98-107 [facility] Comment on above: Performed By: #### C MP #### [facility] [address] [address] [address] Jennifer Zamora CO2 [Moles/Vol] 32.5 mmol/L Critically high 21.0-32.0 [facility] Comment on above: Performed By: #### C MP #### [facility] [address] [address] [address] Jennifer Zamora Creatinine [Mass/Vol] 1.05 mg/dL Normal 0.70-1.30 [facility] Comment on above: Performed By: #### C MP #### [facility] [address] [address] [address] Jennifer Zamora EGFR-AF PARAGUAYAN >60 Normal >=60 [facility] Comment on above: Performed By: #### C MP #### [facility] [address] [place] [address] Dr. Jennifer Zamora EGFR-NON AF PARAGUAYAN >60 Normal >=60 [facility] Comment on above: Performed By: #### C MP #### [facility] [address] [address] [address] Jennifer Zamora Globulin (S) [Mass/Vol] 3.7 g/dL Normal [facility] Comment on above: Performed By: #### C MP #### [facility] [address] [place] [address] Dr. Jennifer Zamora Glucose [Mass/Vol] 175 mg/dL Critically high 74-106 [facility] Comment on above: Performed By: #### C MP #### [facility] [address] [place] [address] Dr. Jennifer Zamora Potassium [Moles/Vol] 4.5 mmol/L Normal 3.5-5.1 [facility] Comment on above: Performed By: #### C MP #### [facility] [address] [address] [address] Jennifer Zamora Protein [Mass/Vol] 7.1 g/dL Normal 6.4-8.2 [facility] Comment on above: Performed By: #### C MP #### [facility] [address] [address] [address] Jennifer Zamora Sodium [Moles/Vol] 135 mmol/L Critically low 136-145 Th e [facility] Comment on above: Performed By: #### C MP #### [facility] [address] [address] [address] Jennifer Zamora Urea nitrogen [Mass/Vol] 18.0 mg/dL Normal 7.0-18.0 [facility] Comment on above: Performed By: #### C MP #### [facility] [address] [address] [address] Jennifer Zamora Urea nitrogen/Creatinine [Mass ratio] 17.1 mg/mg Normal [facility] Comment on above: Performed By: #### C MP #### [facility] [address] [address] [address] Jennifer Zamora Vital Signs Date Time Vital Sign Value Performing Clinician Faci lity 02-01-2025 14:090400 Body height 180.34 cm Dara Eisenberg APRN Work Phone: [facility] 02-01-2025 14:090400 Body mass index (BMI) [Ratio] 41.7 kg/m2 Dara Eisenberg APRN Work Phone: [facility] 02-01-2025 14:09-0400 Body temperature 96.5 [degF] Dara Eisenberg APRN Work Phone: [facility] 02-01-2025 14:09-0400 Body weight 135.62 kg Dara Eisenberg APRN Work Phone: [facility] 02-01-2025 14:09-0400 Diastolic blood pressure 68 mm[Hg] Dara Eisenberg APRN Work Phone: [facility] 02-01-2025 14:090400 Heart rate 102 /min Dara Eisenberg APRN Work Phone: [facility] 02-01-2025 14:09-0400 SaO2% (BldA) [Mass fraction] 96 % Dara Eisenberg APRN Work Phone: [facility] 02-01-2025 14:09-0400 Systolic blood pressure 114 mm[Hg] Dara Eisenberg APRN Work Phone: [facility] 11-05-2024 10:260400 Body height 180.34 cm [facility] 11-05-2024 10:260400 Body mass index (BMI) [Ratio] 44.7 kg/m2 [facility] 11-05-2024 10:260400 Body weight 145.6 kg [facility] 11-05-2024 10:26040 Diastolic blood pressure 68 mm[Hg] [facility] 11-05-2024 10:260400 Heart rate 98 /min [facility] 11-05-2024 10:0400 Respiratory rate 14 /min [facility] 11-05-2024 10:26-0400 SaO2% (BldA) [Mass fraction] 90 % [facility] 11-05-2024 10:26-0400 Systolic blood pressure 128 mm[Hg] [facility] 05-03-2024 14:14-0400 Body height 180.34 cm ROWDY Eisenberg Work Phone: [facility] 05-03-2024 14:14-0400 Body mass index (BMI) [Ratio] 39.3 kg/m2 BIOLOGICAL SCIENCE AIDEFauzia Eisenberg Work Phone: [facility] 05-03-2024 14:14-0400 Body temperature 96.9 [degF] ROWDY Eisenbegr Work Phone: [facility] 05-03-2024 14:14-0400 Body weight 128 kg ROWDY Eisenberg Work Phone: [facility] 05-03-2024 14:14-0400 Diastolic blood pressure 86 mm[Hg] ROWDY Eisenberg Work Phone: [facility] 05-03-2024 14:14-0400 Heart rate 108 /min BIOLOGICAL SCIENCE AIDEFauzia Diamond Faina Work Phone: [facility] 05-03-2024 14:14-0400 SaO2% (BldA) [Mass fraction] 92 % BIOLOGICAL SCIENCE AIDEFauzia Diamond Faina Work Phone: [facility] 05-03-2024 14:14-0400 Systolic blood pressure 142 mm[Hg] BIOLOGICAL SCIENCE AIDEFauzia Diamond Faina Work Phone: [facility] 04-05-2024 13:44-0400 Body height 180.34 cm DPM Rc Curtis Work Phone: [facility] 04-05-2024 13:44-0400 Body mass index (BMI) [Ratio] 39.6 kg/m2 DPM Rc Curtis Work Phone: [facility] 04-05-2024 13:44-0400 Body temperature 97.4 [degF] DPM Rc Curtis Work Phone: [facility] 04-05-2024 13:44-0400 Body weight 128.82 kg DPM Rc Curtis Work Phone: [facility] 04-05-2024 13:44-0400 Diastolic blood pressure 70 mm[Hg] DPM Rc Curtis Work Phone: [facility] 04-05-2024 13:44-0400 Heart rate 61 /min DPM Rc Curtis Work Phone: [facility] 04-05-2024 13:44-0400 SaO2% (BldA) [Mass fraction] 87 % DPM Rc Curtis Work Phone: [facility] 04-05-2024 13:44-0400 Systolic blood pressure 134 mm[Hg] DPShantell Curtis Work Phone: [facility] Encounters Encounter Date Encounter Type Care Provider Facility Start: 02-15-2025 ambulatory Helen Justi [place] [facility] Start: 02-01-2025 End: 02-01-2025 ambulatory Dara Eisenberg APRN Work Phone: [facility] Work Phone: Start: 02-01-2025 End: 02-01-2025 Patient encounter procedure Dara Eisenberg APRN [facility] Work Phone: Start: 01-27-2025 Non-patient / Non-visit Angelic Gen [facility] Work Phone: Start: 01-24-2025 End: 01-26-2025 Evaluation and management of inpatient Ghassan Zepeda Noahkinsey [place] Start: 01-24-2025 Emergency department patient visit Manuel Fletcher Facility:[facility] Start: 11-05-2024 End: 11-05-2024 ambulatory [facility] Work Phone: Start: 11-05-2024 End: 11-05-2024 Patient encounter procedure [facility] Work Phone: Start: 08-29-2024 Evaluation and management of inpatient MERRILL SAFI [facility] Start: 08-26-2024 Evaluation and management of inpatient BILL HORANI [facility] Start: 08-24-2024 Evaluation and management of inpatient PALOMO CADENCE [facility] Start: 08-24-2024 Evaluation and management of inpatient PALOMO CADENCE [facility] Start: 08-21-2024 [facility]: [facility]-21-[facility] Start: 08-20-2024 Evaluation and management of inpatient RUDY [facility] Start: 08-20-2024 Evaluation and management of inpatient RUDY [facility] Start: 08-19-2024 Evaluation and management of inpatient RUDY [facility] Start: 08-17-2024 Evaluation and management of inpatient RUDY [facility] Start: 08-16-2024 Evaluation and management of inpatient RUDY [facility] Start: 08-16-2024 Evaluation and management of inpatient RUDY [facility] Start: 08-15-2024 Evaluation and management of inpatient HUGO PRAJAPATI [facility] Start: 08-15-2024 End: 09-09-2024 Evaluation and management of inpatient SHAIKH MONO [facility] Start: 08-15-2024 Non-patient / Non-visit [facility] Work Phone: Start: 08-14-2024 Non-patient / Non-visit [facility] Work Phone: Start: 08-10-2024 End: 08-12-2024 Clinisync Result Encounter Shaikh Mono JARRETT Work Phone: [facility] Unsolicited Start: 08-10-2024 End: 08-12-2024 Clinisync Result Encounter Shaikh Mono JARRETT Work Phone: [facility] Unsolicited Start: 05-03-2024 End: 05-03-2024 ambulatory ROWDY Eisenberg Work Phone: [facility] Work Phone: Start: 05-03-2024 End: 05-03-2024 Patient encounter procedure ROWDY Eisenberg Work Phone: [facility] Work Phone: Start: 04-12-2024 End: 04-12-2024 ambulatory ROWDY Eisenberg Work Phone: [facility] Work Phone: Start: 04-12-2024 End: 04-12-2024 Patient encounter procedure ROWDY Eisenberg Work Phone: [facility] Work Phone: Start: 04-08-2024 End: 04-08-2024 ambulatory BIOLOGICAL SCIENCE AIDEFauzia Diamond Faina Work Phone: [facility] Work Phone: Start: 04-08-2024 End: 04-08-2024 Departed Referred ROWDY Diamond Faina Work Phone: [facility] [place] [facility] Start: 04-08-2024 Non-patient / Non-visit BIOLOGICAL SCIENCE AIDEFauzia Diamond Faina Work Phone: [facility] Physician [facility] Work Phone: Start: 04-05-2024 End: 04-05-2024 Clinisync Result Encounter Shaikh Mono JARRETT Work Phone: [facility] Unsolicited Start: 04-05-2024 End: 04-05-2024 Clinisync Result Encounter Shaikh Mono JARRETT Work Phone: [facility] External [facility] Unsolicited Start: 04-05-2024 End: 04-05-2024 ambulatory DPM Rc Curtis Work Phone: [facility] Work Phone: Start: 04-05-2024 End: 04-05-2024 Patient encounter procedure DPM Rc Curtis Work Phone: [facility] Phys[facility] Work Phone: Start: 03-29-2024 End: 03-29-2024 ambulatory [facility] [place] [facility] Work Phone: Start: 03-29-2024 End: 03-29-2024 Departed Referred DPM Rc Curtis Work Phone: [facility] Start: 01-26-2024 Non-patient / Non-visit DPM Rc Curtis Work Phone: [facility] Work Phone: Start: 07-14-2022 End: 07-15-[address] EDELMIRA SANTILLAN Facility:[facility] Start: 05-13-2022 End: 05-14-[address] MADELEINE MARCELINO Facility:[facility] Procedures Date Procedure Procedure Detail Performing Clinician Start: 08-10-2024 Bacteria identified in Urine by Culture Shaikh Mono JARRETT Work Phone: Start: 04-08-2024 Acid Fast Smear BIOLOGICAL SCIENCE AIDE Elmer Eisenberg Work Phone: Start: 04-08-2024 [...] Fast Culture Acid Fast Culture [facility] Payers Date Payer Category Payer Private Health Insurance [id number] 2024 Self-pay 2024 Medicare [id number] 1961 Self-pay [id number] 1961 Unknown [id number] 1959 Unknown [id number] 1958 Unknown [id number] 1958 Unknown [id number] .593 1958 Unknown [id number] .727 1958 Unknown [id number] .727 1958 Unknown [id number] [id number] .727 1958 Unknown [id number] [id number] .727 1958 Unknown [id number] 2.16.840.1.893634.3.579.2 .72 1958 Unknown [id number] [id number] .72 1958 Unknown [id number] [id number] .72 1958 Unknown [id number] 2.16.840.1.978170.3.579.2 .72 1958 Unknown [id number] [id number] .727 Medicare [employer] [place] [id number] Private Health Insurance [facility] [id number] Unknown [id number] Unknown Regular Insurance [id number] Social History Date Type Detail Facility Tobacco smoking status [facility] Unknown if ever smoked [facility] Work Phone: Start: 1960 Sex Assigned At Male F [facility] Start: 04-05-2024 Tobacco smoking status NHIS Smoker (finding) [facility] Tobacco smoking status [facility] Tobacco smoking consumption unknown [facility] Start: 1960 Sex assigned at Not on file [facility] Gender identity Not on file [facility] Health are Start: 11-05-2024 Sex Male (finding) [facility] [place] Start: 04-05-2024 Tobacco smoking status WAIS Smokes tobacco daily (finding) [facility] Medical Equipment Procedure Code Equipment Code [...] This test was performed at: [facility], [address] [place] [address], [facility] , , [facility] Comment on above: Performed By: #### [id number] #### [facility] [address] [place] [id number] 01-31-2025 Note Microbiology PROCEDURE: Blood Culture Charcoal [...] This test was performed at: [facility], [address] [place] [address], [id number] , [place], [facility] Comment on above: Performed By: #### 1 [id number] #### [facility] [address] [place] [id number] 01-26-2025 Note Patient Education - Text Atrial [...] signals of the heart. ??? An ambulatory senior java j2ee developer to record your heart's activity for a [...] signs of a (more content not included)... [facility] 01-26-2025 Note Discharge Summary Admission [...] Insulin dependent type 2 diabetes mellitus, 01/24/2025 prison (current) use of insulin, 01/24/2025 Medical problem [...] regimen. Patient was insistent on trying an gwyy-gbd-cvlgwry supplement that he stated would cure diabetes [...] his wounds and recommended continued follow-up with [place] [facility] center where he receives care. Patient successfully passed a voiding trial and was voiding easily after removal of Brunson. Creatinine had improved from 1.4-0.8 on discharge. Medically stable for discharge home on 01/26/2025. Follow-up PCP in 7 to 10 days Continued care at [place] wound clinic Referral sent to Dr. Rosen in [place] for endocrinology follow-up for better glucose control. Discussed this with patient and he was agreeable. Follow-up with [facility] anticoagulation clinic Medication changes Continue metoprolol [...] Completed -- 01/24/25 20:11:27 EDT Consult to Platform Attendant (Platform Attendant Consult) - Ordered -- 01/24/25 20:22:00 EDT, [...] & normal b (more content not included)... [facility] Comment on above: Result Comment: [...] signals of the heart. ??? An ambulatory senior java j2ee developer to record your heart's activity for a [...] signs of a (more content not included)... [facility] 01-26-2025 Note Progress Note - [...] Plan; TBD Please contact Pharmacy at ext. [phone] if there are any questions. [facility] 01-25-2025 Note Interdisciplinary No te - OT Pt is seen for OT evaluation. AMPA score: 16/24. Pt is agreeable only to sitting EOB, no further transfers or mobility and becomes very agitated due to BLE pain. Pt is below functional baseline for ADL performance. OT to follow for treatment. Recommending HH vs SNF at this time pending progress with treatment. [facility] 01-25-2025 Note Progress Note-Physic janae [...] Orders Initial Hospital Care/Day Moderate 55 Minutes [id number] Sbsq Hospital Care/Day Moderate 35 Minutes [id number] 2. Cellulitis of leg (L03.119: Cellulitis of [...] Monitoring on telemetry. Patient noncompliant with anticoagulation. [id number] score is 4. Reports that Eliquis dose [...] despite clear documentation from previous admission in [place] in August 2024. Reports that he stopped taking all of his diabetes medications. 8. Insulin dependent type 2 diabetes mellitus (E11.9: Type 2 diabetes mellitus without complications) A1c: 12.6 BGT ACHS with sliding scale insulin as needed Lantus 30 units nightly at home. Patient noncompliant. Tolerated 20units QHS 01/24, uptitrate to 30 units today. Goal glucose will be less than 180. terminal carman (current) use of insulin (Z79.4: terminal carman (current) use of insulin) Orders: acetaminophen, 975 [...] Capillary Glucose POC Cardiac Monitoring Consult to Platform Attendant Creatine Kinase (more content not included)... [facility] Comment on above: Result Comment: [...] list: All Problems Smoker / SNOMED CT 012869766 / Confirmed Added secondary to documentation in Social History. Tobacco use / SNOMED CT 9224509833 / Confirmed, Active Problems (2) Smoker Tobacco [...] an outpatient with the wound center in [place]. [facility] Comment on above: Result Comment: Elec tronically Signed By: Linda GONZALEZ, Sina Cruz\.br\Date and Time Signed: 01/25/25 12:56 EDT 01-25-2025 Note Interdisciplinary No te - PT PT Evaluation done this date. Pt. with on AM-PAC this date. He requires supervision to CGAx1 with all activity. Uses w/c and FWW at baseline. Recommend home with home health PT. [facility] 01-25-2025 Note Progress Note - [...] Plan; TBD Please contact Pharmacy at ext. [phone] if there are any questions. [facility] 01-24-2025 Note History and Physical [...] would be 75 kg. Given 2 L. Onia sepsis bolus will be 2.25 L, ever, [...] specifically. He follows with Dr. 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 He denies ever seeing vascular surgery. He follows with [place] wound clinic. Stated that he has not [...] Normal alignment. Ext (more content not included)... [facility] Comment on above: Result Comment: [...] at home: Medicines ??? Take and use ydrj-tuj-ethadsh and prescription medicines and creams only as [...] limbs and wais (more content not included)... [facility] 01-24-2025 Note Progress Note-Nurse tourniquerts removed by puneet [facility] 01-24-2025 Note Progress Note - [...] Plan; TBD Please contact Pharmacy at ext. [phone] if there are any questions. Spoke with Dr. Ding - he is ordering a lovenox bridge [facility] 01-24-2025 Note Progress Note-Nurse derrell stopped after 4 minutes for blood cultures that are new order. puneet informed. [facility] 01-24-2025 Note Progress Note-Nurse pt reportedly wears 5 lpm at ho me. d8id not say before. no saturating properly on at home O2 [facility] 11-05-2024 Evaluation note Diagnosis Onset [...] Venous insufficiency (chronic) (peripheral) acute October 10:18am [facility] Work Phone: [phone]) 378-287002-20-20[facility]-2024 NoteDISCHARGE PLANNING UPDATE Patient now agreeable to SNF placement. Insurance authorization submitted for [facility] in [place]. Awaiting insurance decision.[facility]02-18-[facility]-18-2025 [facility]-07-2024 [facility]-2025 [facility] 09-06-2024 [facility]-2025 [facility]-2025 [facility] 09-05-2024 [facility]-16-2025 [facility]-15-2025 [facility] 09-04-2024 [facility]-15-2025 [facility]-14-2025 [facility] 09-03-2024 [facility]-14-2025 [facility]-13-2025 [facility] 09-02-2024 [facility]-13-2025 [facility]-13-2025 [facility] 09-01-2024 NoteDISCHARGE PLANNING UPDATE [facility] ([place], [place]) is [facility]. Per their admissions team, they are submitting to insurance for authorization today, 09/01.[facility] 09-01-2024 [facility]02-12-2025 [facility]-2025 [facility] 08-31-2024 [facility]-2025 [facility]-2025 [facility] 08-30-2024 [facility]02-10-2025 Note[facility]-10-2025 [facility] 08-30-2024 [facility]-09-2025 [facility]Un[facility]-08-2025 [facility] 08-28-2024 [facility]-2025 [facility]02-[facility]-2025 [facility] 08-27-2024 [facility]02-06-2025 [facility]Un[facility]-06-2025 [facility] 08-26-2024 [facility]Un[facility]-06-2025 NoteUn[facility]-05-2025 [facility] 08-25-2024 [facility]Un[facility]-05-2025 [facility]Un[facility]-05-2025 [facility] 08-24-2024 [facility]Un[facility]-04-2025 [facility]Un[facility]-04-2025 [facility] 08-24-2024 NotePatient is off unit for testing at this time.[facility]02-04-2025 [facility]Un[facility]02-04-2025 Note [facility]02-04-2025 [facility]Un[facility]02-04-2025 [facility]Un[facility]02-04-2025 Note [facility]02-03-2025 [facility]Un[facility]02-03-2025 [facility]02-02-2025 Note [facility]02-01-2025 NoteM[facility]02-01-2025 [facility]01-31-2025 Note [facility]01-31-2025 [facility]01-30-2025 [facility]Un[facility]01-29-2025 Note [facility]01-28-2025 [facility]Un[facility]01-28-2025 [facility]Un[facility]01-27-2025 Note [facility]01-27-2025 [facility]Un[facility]01-27-2025 NoteUnC[facility] HospitalEvaluation noteNo assessment information availableMarion Hospital Work Phone: Evaluation note* Diagnosis Onset Date Resolution Status Type 2 diabetes mellitus acu [facility] Work Phone: Evaluation note* Diagnosis Onset Date Resolution Status COPD (chronic obstructive pulmonary disease) acute Hypertension acute MRSA cellulitis of right foot acute Nicotine dependence acute Non-compliance acute Oxygen dependent acute Type 2 diabetes mellitus acu te Ulcer of right foot due to type 2 diabetes mellitus acute [facility] Work Phone: Evaluation note* Diagnosis Onset Date Resolution Status COPD (chronic obstructive pulmonary disease) acute Hypertension acute MRSA cellulitis of right foot acute Nicotine dependence acute Non-compliance acute Oxygen dependent acute Type 2 diabetes mellitus acu te Ulcer of right foot due to type 2 diabetes mellitus acute Acute osteomyelitis of foot acute [facility] Work Phone: Evaluation note* Diagnosis Onset Date Resolution Status COPD (chronic obstructive pulmonary disease) acute Hypertension acute MRSA cellulitis of right foot acute Nicotine dependence acute Non-compliance acute Oxygen dependent acute Type 2 diabetes mellitus acu te Ulcer of right foot due to type 2 diabetes mellitus acute Acute osteomyelitis of foot acute Low back pain acute [facility] Work Phone: Evaluation note* Diagnosis Onset Date [...] diabetes mellitus acute November 05, 2024 10:18am [facility] Work Phone: Reason for referral (narrative)No reason for referral information availableWayne Healthcare Main [facility] Work Phone: Summary Purpose Family History No Family History Records Found Relationship Condition Age at Onset Recorded Date/T mecca mother Malignant neoplasm of cervix Unknown Advance Directives No Advanced Directives Records Found Advance Directive Response Recorded Date/ Time Advance Directives No March 2:40pm Chief Complaint and Reason for Visit Chief Complaint Admit Date F/U USP stay/Medications-HIGH R ISK November 05, 2024 10:18am Amb Documentation January 27, 2025 8:33 am [facility] [place] February 01, 2025 2:06 pm [...] 2024 10:18am Chief Complaint Admit Date F/U USP stay/Medications-HIGH R ISK November 05, 2024 10:18am [...] and content) DATE CREATED AUTHOR 07/19/2022 [facility] DATE CREATED AUTHOR AUTHOR'S ORGANIZ ATION 04/20/2024 [facility] DATE CREATED AUTHOR AUTHOR'S ORGANIZ ATION 10/20/2024 [facility] DATE CREATED AUTHOR AUTHOR'S ORGANIZ ATION 01/28/2025 [facility] DATE CREATED AUTHOR AUTHOR'S ORGANIZ ATION 01/29/2025 [facility] DATE CREATED AUTHOR AUTHOR'S ORGANIZ ATION 01/30/2025 [facility] DATE CREATED AUTHOR AUTHOR'S ORGANIZ ATION 02/04/2025 [facility] DATE CREATED AUTHOR AUTHOR'S ORGANIZ ATION 02/17/2025 Atilio Hernández [facility] Care Teams (unrecognized sec tion and content) Team Status: Active Member Role Status Dates Magnolia Chavez LPN Attending Provider Active St art: January 26, 2024 Team Status: Inactive Member Role Status Dates Rc Curtis DPM MS Attending Provider Active Start: March 29, 2024 End: March 29, 2024 Team Status: Active Member Role Status Dates Dara Eisenberg APRN [employer] Primary Care Provider Active Team Status: Inactive Member Role Status Dates Dara Eisenberg APRN [employer] Primary Care Provider, Attending Provider Active Start: April 05, 2024 End: April 05, 2024 Team Status: Active Member Role Status Dates Dara Eisenberg APRN [employer]-C Primary Care Provider, Attending Provider Active Start: April 08, 2024 Team Status: Inactive Member Role Status Dates Dara Eisenberg APRN [employer]-C Primary Care Provider Active Start: March 212023 End: April 08, 2024 Rc Curtis DPM MS Attending Provider Active Start: April 08, 2024 End: April 08, 2024 Team Status: Inactive Member Role Status Dates Dara Eisenberg APRN [employer] Primary Care Provider Active Start: March 222023 End: April 12, 2024 Navdeep Trujillo MD Attending Provider Active Sta rt: April 12, 2024 End: April 12, 2024 Team Status: Inactive Member Role Status Dates Dara Eisenberg APRN [employer] Primary Care Provider, Attending Provider Active Start: May 03, 2024 End: May 03, 2024 Team Status: Active Member Role Status Dates Dara Eisenberg APRN [employer] Primary Care Provider Active Start: July Shaikh Mono MD Attending Provider Active Sta rt: August 14, 2024 Team Status: Active Member Role Status Dates Dara Eisenberg APRN [employer] Primary Care Provider Active Start: July Shaikh Mono MD Attending Provider Active Sta rt: August 15, 2024 Team Status: Inactive Member Role Status Dates Dara Eisenberg APRN [employer]-C Primary Care Provider, Attending Provider Active Start: November 05, 2024 End: November 05, 2024 Team Status: Inactive Member Role Status Dates Dara Eisenberg APRN [employer] Primary Care Provider Active Start: November 05, 2024 End: November 05, 2024 Dara Eisenberg APRN [employer]-Bor Attending Provider Act mook Start: November 05, 2024 End: November 05, 2024 Team Status: Active Member Role Status Dates Dara Eisenberg APRN [employer] Primary Care Provider Active Start: January 27, 2025 Angelic Blevins CMA Attending Provider Active Start: January 27, 2025 Team Status: Inactive Member Role Status Dates Dara Eisenberg APRN [employer] Primary Care Provider Active Start: February 01, 2025 End: February 01, 2025 Dara Eisenberg APRN [employer]-C Attending Provider Act mook Start: February 01, [...] BE BASED ON THE PRIMARY CLINICAL RECORDS. [facility] [employer] provides no warranty or guarantee of the accuracy or completeness of information in this document.
== END 2025-03-17 14:35 | disposition home or self-care (01) ==
LOC: WC 14:34
PROVIDERS: PCP Nurse Practitioner Family; Visit Provider Physician Assistant
DX: I87.313 Chronic venous hypertension (idiopathic) with ulcer of bilateral lower extremity (principal); L97.822 Non-pressure chronic ulcer of other part of left lower leg with fat layer exposed; L97.812 Non-pressure chronic ulcer of other part of right lower leg with fat layer exposed
CPT/HCPCS: 29581

== ENCOUNTER 2025-03-22 13:13 | Outpatient (OUT) | payer MEDICARE, SELFPAY ==
--- OUTSIDE RECORDS SUMMARY | 2025-03-22 13:36 | XMS_ITS | CCD ---
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 [facility] Comment on above: Performed By: #### 2 [id number] #### [facility] [address] [place] [address] MCV (RBC) [Entitic vol] 91.8 fL Normal 80.0-100.0 [facility] Comment on above: Performed By: #### 2 [id number] #### [facility] [address] [place] [address] [place] Absolute 1.3 E9/L High 0.2-1.0 [facility] Comment on above: Performed By: #### 2 [id number] #### [facility] [address] [place] [address] Monocytes/100 WBC (Bld) 7.6 % Normal 4.0-14.0 [facility] Comment on above: Performed By: #### 2 [id number] #### [facility] [address] [place] [address] Neutro Absolute 14.8 E9/L High 2.0-7.5 [facility] Comment on above: Performed By: #### 2 [id number] #### [facility] [address] [place] [address] Neutro Auto 85.3 % High 36.0-75.0 [facility] Comment on above: Performed By: #### 2 [id number] #### [facility] [address] [place] [address] Platelet 269.0 E9/L Normal 150.0-500.0 [facility] Comment on above: Performed By: #### 2 [id number] #### [facility] [address] [place] [address] Platelet mean volume (Bld) [Entitic vol] 8.7 fL Normal 6.4-10.8 [facility] Comment on above: Performed By: #### 2 [id number] #### [facility] [address] [place] [address] RBC 4.8 E12/L Normal 4.3-5.9 [facility] Comment on above: Performed By: #### 2 [id number] #### [facility] [address] [place] [address] WBC 17.4 E9/L High 4.0-11.0 [facility] Comment on above: Performed By: #### 2 945191 #### [facility] [address] [place] [address] Capillary Glucose POCon 07-0 Glucose [Mass/Vol] 490 mg/dL Abnormal 55-99 [facility] Comment on above: Result Comment: Cindy calle RN/MD Performed By: #### 2 [id number] #### [facility] [address] [place] [address] ED Clinical Summaryon 2024 ED Clinical Summary ED Clinical Summary [address] [address] ED Clinical Summary Person Information Name[facility] Age: 64 Years : 1960 Sex: Male Language: Tunisian PCP: DARA EISENBERG CNP Marital Status: Single Phone: [phone] Visit Id: Visit Reason: Medical problem - [...] 18:23:37 Patient Care Request 01/24/2025 18:23:37 ADDRESS: [address] [place] [address] PHYS DOC NOTES: MEDICAL INFORMATION: Prescriptions Given: New Medications [id number], [address] [place], [place] [id number], [phone] doxycycline (doxycycline hyclate 100 mg Cap) 1 Capsules By Mouth 2 times a day for 7 Days. Refills: 0. PATIENT EDUCATION INFORMATION: Instructions: Cellulitis, Adult, Jdep-wm-Szzv; Bleeding Varicose Veins Follow up: With: Address: When: DARA EISENBERG [address], [address] [place] [phone] Business (1) In 3 days 01/27/2025 Comments: Call Dr for diagnosis based follow up DIAGNOSIS: 1:Severe sepsis; 2:Cellulitis of leg; 3:KRISTINE (acute kidney injury); 4:Atrial fibrillation with RVR; 5: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; 6:Hyponatremia; 7:Noncompliance with medications Normal [facility] ED Note-Physicianon 01-25-20 ED Note-Physician ED Note-Physician [...] of the patient. Sepsis Data [x] Patient's [place] body weight was considered in sepsis fluid [...] nonco (more content not included)... Normal [facility] Comment on above: Result Comment: Elec tronically Signed By: Puneet Jung PA-C.br\Date and Time Signed: 01/24/25 13:02 EDT\.br\Electronically Co-Signed By: Puneet Jung PA-C.br\Date and Time Co-Signed: 01/24/25 15:25 EDT\.br\Electronically Co-Signed By: Puneet Jung PA-C.br\Date and Time Co-Signed: 01/24/25 16:27 EDT\.br\Electronically Co-Signed By: Justine Otto, Manuel Mathis\.br\Date and Time Co-Signed: 01/24/25 18:08 EDT ED Patient Summaryon 025 ED Patient Summary ED Patient Summary [place] [address] Patient Discharge Instructions Person Information Name: TYLER MCKINNEY Age: 64 Years Arrival Date: 01/24/2025 11:29:33 Discharge Diagnosis: 1:Severe sepsis; 2:Cellulitis of leg; 3:KRISTINE (acute kidney injury); 4:Atrial fibrillation with RVR; 5: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; 6:Hyponatremia; 7:Noncompliance with medications Primary Care Physician: DARA EISENBERG CNP Provider Information Primary Provider: Manuel Fletcher M.D. Advanced Aeronautical Engineering Officer:Puneet Jung PA-C The exam and treatment you received in the Emergency Department were for an urgent problem and are not intended as complete care. It is important that you follow up with a doctor, nurse practitioner, or physician???s assistant in nursing for ongoing care. If your symptoms become worse or you do not improve as expected and you are unable to reach your usual health care provider, you should return to the Emergency Department. We are available 24 hours a day. YTLER MCKINNEY has been given the following list of patient education materials, prescriptions and follow-up instructions: Follow-up Instructions: With: Address: When: DARA EISENBERG [address] [address] [facility], [facility] [place] [phone] Business (1) In 3 days 01/27/2025 Comments: Call Dr for diagnosis based follow up In the event that this physician does not participate in your insurance network, please consult with your insurance company to find a nearby participating provider. Patient Education Materials: Cellulitis, Adult, Beao-nf-Oinn; Bleeding Varicose Veins A MESSAGE TO ALL PATIENTS REGARDING OPIOIDS PRESCRIPTION OPIOIDS: WHAT YOU NEED TO KNOW Prescription opioids can be used to help relieve jlsgdzzw-oa-rmkbco pain and are often prescribed following a [...] toilet, f (more content not included)... Normal [facility] Lactic Acidon 01-24-2025 Lactic Acid Lvl 1.0 mmol/L Normal 0.5-2.2 [facility] Comment on above: Performed By: #### 2 [id number] #### [facility] [address] [place] [address] PT & PTTon 01-24-2025 INR Coag (PPP) [Relative time] 1.03 {INR} Invalid Interpretation Code [facility] Comment on above: Result Comment: INR results are specifically intended to assess patients stabilized on long-term Anticoagulation therapy suggested INR???s ???Less Intensive Anticoagulation??? 2.0 ??? 3.0 Conventional Range 3.0 ??? 4.5 Performed By: #### 1 [id number] #### [facility] [address] [place] [address] PT 11.5 second(s) Normal 9.4-12.5 [facility] Comment on above: Result Comment: 15 [...] were obtained from a study by Shimon Argenta, et al. prepared from 1437 samples obtained at 7 different centers using the same coagulation reagent and instrumentation as [facility]. Currently there are no coagulation studies available worldwide for children to 14 days, and no normal ranges. Performed By: #### 1 [id number] #### [facility] [address] [place] [address] PTT 27.7 second(s) Normal 25.1-36.5 [facility] Comment on above: Result Comment: Para [...] the same coagulation reagent and instrumentation as [facility]. Currently there are no coagulation studies available worldwide for children to 14 days, and no normal ranges. Heparin therapeutic range (represented by Anti-Factor Xa activity of 0.2 - 0.4 U/mL) corresponds to PTT of 56.6 - 109.0 sec. Performed By: #### 1 [id number] #### [facility] [address] [place] [address] Pre-Arrival Noteon Pre-Arrival Note Pre-Arrival Note Pre-Arrival Summary Name: , Current Date: 01/24/2025 11:30:22 EDT Gender: Date of : Age: Pre-Arrival Type: EMS ETA: 01/24/2025 11:50:00 EDT Primary Care Physician: Presenting Problem: varicose vein tourniquet Pre-Arrival User: [address] Referring Source: Location: [place] Completion Date/Time: 01/24/2025 11:20:00 [facility] Emergency Department Pre-Hospital Report Form Vital Signs: Pre-Hospital Report: Treatment in Route: Response to Treatment: Misc. Issues: Normal [facility] Procalcitoninon 01-24-2025 Procalcitonin .09 ng/mL Normal .00-.50 [facility] Comment on above: Result Comment: <0.5 [...] to 24 hours. Performed By: #### 2 [id number] #### [facility] [address] [place] [address] Troponin 0 Hr.on 01-24-2025 Troponin HS 4.60 pg/mL Low 15.90-38.40 [facility] Comment on above: Result Comment: The 95% CI (Confidence Interval) PPV (Positive Predictive Value) for myocardial infarction in females is 38 pg/mL, in males 51 pg/mL. The results should be used in conjunction with clinical conditions of myocardial infarction. (Access High Sensitivity Troponin I Instructions For Use, Charli Columbia, February 2018) Performed By: #### 1 [id number] #### [facility] [address] [place] [address] UA with Cult Rflxon 01-25-20 25 Color (U) Light-Yellow Normal Yellow [facility] Comment on above: Result Comment: Micr oscopic readings are only performed on those samples that meet specific criteria set forth by [facility]. Performed By: #### 4 [id number] #### [facility] [address] [place] [id number] Ketones Ql (U) Negative Normal Negative [facility] Comment on above: Performed By: #### 4 [id number] #### [facility] [address] [place] [address] UA Blood 1+ mg/dL Abnormal Negative [facility] Comment on above: Performed By: #### 4 [id number] #### [facility] [address] [place] [address] UA Clarity Clear Normal Clear [facility] Comment on above: Performed By: #### 4 [id number] #### [facility] [address] [place] [address] UA Glucose 4+ mg/dL Abnormal Negative [facility] Comment on above: Performed By: #### 4 [id number] #### [facility] [address] [place] [address] UA Leuk Est Negative Normal Negative [facility] Comment on above: Performed By: #### 4 [id number] #### [facility] [address] [place] [address] UA Mucous Trace Normal Negative [facility] Comment on above: Performed By: #### 4 [id number] #### [facility] [address] [place] [address] UA Nitrite Negative Normal Negative [facility] Comment on above: Performed By: #### 4 [id number] #### [facility] [address] [place] [address] UA pH 5.0 Invalid Interpretation Code 5.0-9.0 [facility] Comment on above: Performed By: #### 4 [id number] #### [facility] [address] [place] [address] UA Protein Negative Normal Negative [facility] Comment on above: Performed By: #### 4 [id number] #### [facility] [address] [place] [address] UA RBC 4-20 Abnormal 0-3 [facility] Comment on above: Performed By: #### 4 [id number] #### [facility] [address] [place] [address] UA Spec Grav 1.020 Invalid Interpretation Code 1.005-1.030 [facility] Comment on above: Performed By: #### 4 [id number] #### [facility] [address] [place] [address] UA Urobilinogen Negative Normal Negative [facility] Comment on above: Performed By: #### 4 [id number] #### [facility] [address] [place] [address] UA WBC 0-5 Normal 0-5 [facility] Comment on above: Performed By: #### 4 [id number] #### [facility] [address] [place] [address] Urobilinogen (U) [Mass/Vol] Negative Normal Negative [facility] Comment on above: Performed By: #### 4 [id number] #### [facility] [address] [place] [address] UA Spec Desc Clean Catch Normal [facility] Comment on above: Performed By: #### 4 [id number] #### [facility] [address] [place] [address] XR Chest 2 Viewson XR Chest 2 [...] Krishna Ray MD Transcribed by: [employer] Technologist: BACK TENDER CYLINDER Normal [facility] eGFRon 01-24-2025 eGFR 55 mL/min/1.73 m2 Low >=59 [facility] Comment on above: Performed By: #### 1 [id number] #### [facility] [address] [place] [address] HbA1c HPLC (Bld) [Mass fract ion]on 11-05-2024 HbA1c (Bld) [Mass fraction] 10.1 % [facility] CBC WITH AUTO DIFFERENTIALon 09-09-2024 Basophils (Bld) [#/Vol] 0.05 10*3/uL Normal 0.00-0.20 [facility] Comment on above: Performed By: #### L [id number] ####[facility] (BEAKER)[address] [place] [address] Basophils/100 WBC (Bld) 0.6 % Normal 0.0-1.0 [facility] Comment on above: Performed By: #### L [id number] ####[facility] (BEAKER)[address] [place] [address] Eosinophils (Bld) [#/Vol] 0.43 10*3/uL Normal 0.00-0.50 [facility] Comment on above: Performed By: #### L [id number] ####[facility] (BEAKER)[address] [place] [address] Eosinophils/100 WBC (Bld) 5.0 % Normal 0.0-6.0 [facility] Comment on above: Performed By: #### L [id number] ####[facility] (BEAKER)[address] [place] [address] Erythrocyte distribution width (RBC) [Ratio] 15.1 % High 11.5-15.0 [facility] Comment on above: Performed By: #### L [id number] ####[facility] (BEAKER)[address] [place] [address] ERYTHROCYTE MEAN CORPUSCULAR HEMOGLOBIN CONCENTRATION (G/DL) BY AUTOMATED 31.1 g/dL Low 32.0-35.0 [facility] Comment on above: Performed By: #### L [id number] ####[facility] (BEAKER)[address] [place] [address] Hematocrit (Bld) [Volume fraction] 48.8 % Normal 39.0-55.0 [facility] Comment on above: Performed By: #### L [id number] ####[facility] (BEAKER)[address] [place] [address] Hemoglobin (Bld) [Mass/Vol] 15.2 g/dL Normal 13.0-17.0 [facility] Comment on above: Performed By: #### L [id number] ####[facility] (BEAKER)[address] [place] [address] Immature granulocytes (Bld) [#/Vol] 0.05 10*3/uL Normal 0.00-0.20 [facility] Comment on above: Performed By: #### L [id number] ####[facility] (BEAKER)[address] [place] [address] Immature granulocytes/100 WBC (Bld) 0.6 % Normal 0.0-1.0 [facility] Comment on above: Performed By: #### L [id number] ####[facility] (BEAKER)[address] [place] [address] Lymphocytes (Bld) [#/Vol] 1.59 10*3/uL Normal 1.20-4.00 [facility] Comment on above: Performed By: #### L [id number] ####[facility] (BEAKER)[address] [place] [address] Lymphocytes/100 WBC (Bld) 18.5 % Low 20.0-45.0 [facility] Comment on above: Performed By: #### L [id number] ####[facility] (BEAKER)[address] [place] [address] MCH (RBC) [Entitic mass] 28.8 pg Normal 27.0-33.0 [facility] Comment on above: Performed By: #### L [id number] ####[facility] (BEAKER)[address] [place] [address] MCV (RBC) [Entitic vol] 92.6 fL Normal 82.0-98.0 [facility] Comment on above: Performed By: #### L [id number] ####[facility] [place] [address] Monocytes (Bld) [#/Vol] 0.90 10*3/uL Normal 0.10-1.00 [facility] Comment on above: Performed By: #### L [id number] ####[facility] ([facility])[address] [place] [address] Monocytes/100 WBC (Bld) 10.5 % Normal 5.0-12.0 [facility] Comment on above: Performed By: #### L [id number] ####[facility] ([facility])[address] [place] [address] Neutrophils (Bld) [#/Vol] 5.56 10*3/uL Normal 1.60-7.60 [facility] Comment on above: Performed By: #### L [id number] ####[facility] ([facility])[address] [place] [address] Neutrophils/100 WBC (Bld) 64.8 % Normal 40.0-72.0 [facility] Comment on above: Performed By: #### L [id number] ####[facility] ([facility] [place] [address] NRBC (PER 100 WBCS) BY AUTOMATED COUNT 0.0 % Normal 0 [facility] Comment on above: Performed By: #### L [id number] ####[facility] ([facility] [place] [address] PLATELETS (10*3/UL) IN BLOOD AUTOMATED COUNT 208 10*3/uL Normal 150-400 [facility] Comment on above: Performed By: #### L [id number] ####[facility] [facility] [place] [address] RBC (Bld) [#/Vol] 5.27 10*6/uL Normal 4.20-5.70 [facility] Comment on above: Performed By: #### L [id number] ####[facility] ([facility] [place] [address] WBC (Bld) [#/Vol] 8.58 10*3/uL Normal 4.00-10.60 [facility] Comment on above: Performed By: #### L [id number] ####[facility] ([facility])[address] [place] [address] DSon 09-09-2024 DS [facility] MAGNESIUMon 09-09-2024 Magnesium [Mass/Vol] 1.7 mg/dL Low 1.9-2.7 [facility] Comment on above: Performed By: #### L [id number] ####[facility] ([facility])[address] [place] [address] PHOSPHORUSon 09-09-2024 Magnesium [Mass/Vol] 3.2 mg/dL Normal 2.5-5.0 [facility] Comment on above: Performed By: #### L [id number] ####[facility] ([facility])[address] [place] [address] POCT GLUCOSE METER UNSOLICIT ED RESULTSon 09-09-2024 Glucose [Mass/Vol] 114 mg/dL High 70-105 [facility] Comment on above: Order Comment: Waive d Testing in the ED is performed under the ED CLIA certificate #[id number]. Result Comment: [email or web address] [email or web address] Performed By: #### L [id number] ####[facility] ([facility])[address] [place] [address] 30on 09-08-2024 30 [facility] 30 [facility] CBC WITH AUTO DIFFERENTIALon 09-08-2024 Basophils (Bld) [#/Vol] 0.06 10*3/uL Normal 0.00-0.20 [facility] Comment on above: Performed By: #### L [id number] ####[facility] ([facility] [facility] [place] [address] Basophils/100 WBC (Bld) 0.8 % Normal 0.0-1.0 [facility] Comment on above: Performed By: #### L [id number] ####[facility] ([facility])[address] [place] [address] Eosinophils (Bld) [#/Vol] 0.43 10*3/uL Normal 0.00-0.50 [facility] Comment on above: Performed By: #### L [id number] ####[facility] ([facility] [place] [address] Eosinophils/100 WBC (Bld) 5.5 % Normal 0.0-6.0 [facility] Comment on above: Performed By: #### L [id number] ####[facility] ([facility] [place] [address] Erythrocyte distribution width (RBC) [Ratio] 15.2 % High 11.5-15.0 [facility] Comment on above: Performed By: #### L [id number] ####[facility] ([facility] [place] [address] ERYTHROCYTE MEAN CORPUSCULAR HEMOGLOBIN CONCENTRATION (G/DL) BY AUTOMATED 30.8 g/dL Low 32.0-35.0 [facility] Comment on above: Performed By: #### L [id number] ####[facility] ([facility])[address] [place] [address] Hematocrit (Bld) [Volume fraction] 45.4 % Normal 39.0-55.0 [facility] Comment on above: Performed By: #### L [id number] ####[facility] ([facility])[address] [place] [address] Hemoglobin (Bld) [Mass/Vol] 14.0 g/dL Normal 13.0-17.0 [facility] Comment on above: Performed By: #### L [id number] ####[facility] ([facility])[address] [place] [address] Immature granulocytes (Bld) [#/Vol] 0.03 10*3/uL Normal 0.00-0.20 [facility] Comment on above: Performed By: #### L [id number] ####[facility] ([facility])[address] [place] [address] Immature granulocytes/100 WBC (Bld) 0.4 % Normal 0.0-1.0 [facility] Comment on above: Performed By: #### L [id number] ####[facility] ([facility])[address] [place] [address] Lymphocytes (Bld) [#/Vol] 1.82 10*3/uL Normal 1.20-4.00 [facility] Comment on above: Performed By: #### L [id number] ####[facility] ([facility])[address] [place] [address] Lymphocytes/100 WBC (Bld) 23.2 % Normal 20.0-45.0 [facility] Comment on above: Performed By: #### L [id number] ####[facility] ([facility])[address] [place] [address] MCH (RBC) [Entitic mass] 29.1 pg Normal 27.0-33.0 [facility] Comment on above: Performed By: #### L [id number] ####[facility] ([facility])[address] [place] [address] MCV (RBC) [Entitic vol] 94.4 fL Normal 82.0-98.0 [facility] Comment on above: Performed By: #### L [id number] ####[facility] ([facility] [place] [address] Monocytes (Bld) [#/Vol] 0.88 10*3/uL Normal 0.10-1.00 [facility] Comment on above: Performed By: #### L [id number] ####[facility] ([facility] [place] [address] Monocytes/100 WBC (Bld) 11.2 % Normal 5.0-12.0 [facility] Comment on above: Performed By: #### L [id number] ####[facility] ([facility])[address] [place] [address] Neutrophils (Bld) [#/Vol] 4.62 10*3/uL Normal 1.60-7.60 [facility] Comment on above: Performed By: #### L [id number] ####[facility] ([facility])[address] [place] [address] Neutrophils/100 WBC (Bld) 58.9 % Normal 40.0-72.0 [facility] Comment on above: Performed By: #### L [id number] ####[facility] ([facility])[address] [place] [address] NRBC (PER 100 WBCS) BY AUTOMATED COUNT 0.0 % Normal 0 [facility] Comment on above: Performed By: #### L [id number] ####[facility] ([facility])[address] [place] [address] PLATELETS (10*3/UL) IN BLOOD AUTOMATED COUNT 231 10*3/uL Normal 150-400 [facility] Comment on above: Performed By: #### L [id number] ####[facility] ([facility])[address] [address] RBC (Bld) [#/Vol] 4.81 10*6/uL Normal 4.20-5.70 [facility] Comment on above: Performed By: #### L [id number] ####[facility] ([facility])[address] [place] [address] WBC (Bld) [#/Vol] 7.84 10*3/uL Normal 4.00-10.60 [facility] Comment on above: Performed By: #### L [id number] ####[facility] ([facility])[address] [place] [address] MAGNESIUMon 09-08-2024 Magnesium [Mass/Vol] 1.6 mg/dL Low 1.9-2.7 [facility] Comment on above: Performed By: #### L [id number] ####[facility] ([facility])[address] [place] [address] NURSNOTEon 09-08-2024 NURSNOTE Normal [facility] PHOSPHORUSon 09-08-2024 Magnesium [Mass/Vol] 3.4 mg/dL Normal 2.5-5.0 [facility] Comment on above: Performed By: #### L [id number] ####[facility] ([facility])[address] [place] [address] POCT GLUCOSE METER UNSOLICIT ED RESULTSon 09-08-2024 Glucose [Mass/Vol] 244 mg/dL High 70-105 [facility] Comment on above: Order Comment: Waive d Testing in the ED is performed under the ED CLIA certificate #[id number]. Result Comment: droc kol Performed By: #### L [id number] ####[facility] ([facility])[address] [place] [address] Glucose [Mass/Vol] 165 mg/dL High 70-105 [facility] Comment on above: Order Comment: Waive d Testing in the ED is performed under the ED CLIA certificate #[id number]. Result Comment: [email or web address] ois3 Performed By: #### L [id number] ####[facility] ([facility])[address] [place] [address] Glucose [Mass/Vol] 110 mg/dL High 70-105 [facility] Comment on above: Order Comment: Waive d Testing in the ED is performed under the ED CLIA certificate #[id number]. Result Comment: ndub [email or web address] Performed By: #### L [id number] ####[facility] ([facility])[address] [place] [address] Glucose [Mass/Vol] 157 mg/dL High 70-105 [facility] Comment on above: Order Comment: Waive d Testing in the ED is performed under the ED CLIA certificate #[id number]. Result Comment: [email or web address] [email or web address] Performed By: #### L [id number] ####[facility] ([employer])[address] [place] [address] 30on 09-07-2024 30 Normal [facility] 30 Normal [facility] BASIC METABOLIC PANELon 08-21 Anion gap [Moles/Vol] 9 mmol/L Normal 7-20 [facility] Comment on above: Performed By: #### L [id number] ####[facility] ([facility] [place] [address] Calcium [Mass/Vol] 9.6 mg/dL Normal 8.6-10.3 [facility] Comment on above: Performed By: #### L [id number] ####[facility] ([facility] [place] [address] Chloride [Moles/Vol] 100 mmol/L Normal 98-107 [facility] Comment on above: Performed By: #### L [id number] ####[facility] ([facility] [place] [address] CO2 [Moles/Vol] 32 mmol/L High 21-31 [facility] Comment on above: Performed By: #### L [id number] ####[facility] ([facility] [place] [address] Creatinine [Mass/Vol] 0.78 mg/dL Normal 0.70-1.30 [facility] Comment on above: Performed By: #### L [id number] ####[facility] ([facility] [place] [address] GLOMERULAR FILTRATION RATE ML/MIN/1.73 SQ M.PREDICTED 99.0 mL/min/1.73m*2 Normal >60.0 [facility] Comment on above: Result Comment: The [facility]???s estimated glomerular filtration rate (eGFR) will [...] of individuals. Performed By: #### L [id number] ####[facility] ([facility])[address] [place] [address] Glucose [Mass/Vol] 153 mg/dL High 70-100 [facility] Comment on above: Performed By: #### L [id number] ####[facility] ([facility])[address] [place] [address] Potassium [Moles/Vol] 4.1 mmol/L Normal 3.5-5.1 [facility] Comment on above: Performed By: #### L [id number] ####[facility] ([facility])[address] [place] [address] Sodium [Moles/Vol] 137 mmol/L Normal 136-145 [facility] Comment on above: Performed By: #### L [id number] ####[facility] ([facility])[address] [place] [address] Urea nitrogen [Mass/Vol] 19 mg/dL Normal 7-25 [facility] Comment on above: Performed By: #### L [id number] ####[facility] ([facility])[address] [place] [address] UREA NITROGEN/CREATININE (MASS RATIO) IN SER/PLAS 24.4 Normal [facility] Comment on above: Performed By: #### L [id number] ####[facility] ([facility])[address] [place] [address] CBC WITH AUTO DIFFERENTIALon 09-07-2024 Basophils (Bld) [#/Vol] 0.06 10*3/uL Normal 0.00-0.20 [facility] Comment on above: Performed By: #### L [id number] ####[facility] ([facility])[address] [place] [address] Basophils/100 WBC (Bld) 0.8 % Normal 0.0-1.0 [facility] Comment on above: Performed By: #### L [id number] ####[facility] ([facility])[address] [place] [address] Eosinophils (Bld) [#/Vol] 0.49 10*3/uL Normal 0.00-0.50 [facility] Comment on above: Performed By: #### L [id number] ####[facility] ([facility])[address] [place] [address] Eosinophils/100 WBC (Bld) 6.8 % High 0.0-6.0 [facility] Comment on above: Performed By: #### L [id number] ####[facility] ([facility] [place] [address] Erythrocyte distribution width (RBC) [Ratio] 15.3 % High 11.5-15.0 [facility] Comment on above: Performed By: #### L [id number] ####[facility] ([facility])[address] [place] [address] ERYTHROCYTE MEAN CORPUSCULAR HEMOGLOBIN CONCENTRATION (G/DL) BY AUTOMATED 30.9 g/dL Low 32.0-35.0 [facility] Comment on above: Performed By: #### L [id number] ####[facility] ([facility])[address] [place] [address] Hematocrit (Bld) [Volume fraction] 45.9 % Normal 39.0-55.0 [facility] Comment on above: Performed By: #### L [id number] ####[facility] ([facility])[address] [place] [address] Hemoglobin (Bld) [Mass/Vol] 14.2 g/dL Normal 13.0-17.0 [facility] Comment on above: Performed By: #### L [id number] ####[facility] ([facility])[address] [place] [address] Immature granulocytes (Bld) [#/Vol] 0.04 10*3/uL Normal 0.00-0.20 [facility] Comment on above: Performed By: #### L [id number] ####[facility] ([facility])[address] [place] [address] Immature granulocytes/100 WBC (Bld) 0.6 % Normal 0.0-1.0 [facility] Comment on above: Performed By: #### L [id number] ####[facility] ([facility])[address] [place] [address] Lymphocytes (Bld) [#/Vol] 1.82 10*3/uL Normal 1.20-4.00 [facility] Comment on above: Performed By: #### L [id number] ####[facility] ([facility])[address] [place] [address] Lymphocytes/100 WBC (Bld) 25.3 % Normal 20.0-45.0 [facility] Comment on above: Performed By: #### L [id number] ####[facility] ([facility])[address] [place] [address] MCH (RBC) [Entitic mass] 29.2 pg Normal 27.0-33.0 [facility] Comment on above: Performed By: #### L [id number] ####[facility] ([facility])[address] [place] [address] MCV (RBC) [Entitic vol] 94.4 fL Normal 82.0-98.0 [facility] Comment on above: Performed By: #### L [id number] ####[facility] ([facility])[address] [place] [address] Monocytes (Bld) [#/Vol] 0.74 10*3/uL Normal 0.10-1.00 [facility] Comment on above: Performed By: #### L [id number] ####[facility] ([facility])[address] [place] [address] Monocytes/100 WBC (Bld) 10.3 % Normal 5.0-12.0 [facility] Comment on above: Performed By: #### L [id number] ####[facility] ([facility])[address] [place] [address] Neutrophils (Bld) [#/Vol] 4.04 10*3/uL Normal 1.60-7.60 [facility] Comment on above: Performed By: #### L [id number] ####[facility] ([facility] [address] Neutrophils/100 WBC (Bld) 56.2 % Normal 40.0-72.0 [facility] Comment on above: Performed By: #### L [id number] ####[facility] ([facility])[address] [address] NRBC (PER 100 WBCS) BY AUTOMATED COUNT 0.0 % Normal 0 [facility] Comment on above: Performed By: #### L [id number] ####[facility] ([facility])[address] [address] PLATELETS (10*3/UL) IN BLOOD AUTOMATED COUNT 234 10*3/uL Normal 150-400 [facility] Comment on above: Performed By: #### L [id number] ####[facility] ([facility])[address] [address] RBC (Bld) [#/Vol] 4.86 10*6/uL Normal 4.20-5.70 [facility] Comment on above: Performed By: #### L [id number] ####[facility] ([facility])[address] [address] WBC (Bld) [#/Vol] 7.19 10*3/uL Normal 4.00-10.60 [facility] Comment on above: Performed By: #### L [id number] ####[facility] ([facility] [address] MAGNESIUMon 09-07-2024 Magnesium [Mass/Vol] 1.7 mg/dL Low 1.9-2.7 [facility] Comment on above: Performed By: #### L [id number] ####[facility] ([facility] [place] [address] NURSNOTEon 09-07-2024 NURSNOTE Signed off to Ian engel RN [facility] NURSNOTE HOB up @ 40 degrees, NO c/o of pain, or SOB at this time Urinal at bedside Call light within reach IV INT'd, intact, no redness noted Pulse ox--97% O 2 cont. On pt. Per nasal cannula @ 4 L/min NC Telemetry cont. On pt [facility] NURSNOTE [facility] NURSNOTE Tried to call Elias, pt's brother, no answer, still, at this time, 3rd attempt [facility] NURSNOTE [facility] NURSNOTE Pt's family brought him a hamburger last night, and the pt. Is eating it now. Pt. Encouraged not to eat, since the hamburger has been sitting out all night. Pt. Cont. To eat burger. [facility] NURSNOTE Eyes closed resp. Easy @ 18/min Pulse ox--98% Telemetry cont. On pt [facility] Orders Onlyon 09-07-2024 Orders Only [id number] Tyler Mckinney 1960 M Date Provider Department Center 09/07/[id number], JENN*[facility] [place] [facility] No family history on file [facility] PHOSPHORUSon 09-07-2024 Magnesium [Mass/Vol] 3.5 mg/dL Normal 2.5-5.0 [facility] Comment on above: Performed By: #### L [id number] ####[facility] ([facility])[address] [place] [address] POCT GLUCOSE METER UNSOLICIT ED RESULTSon 09-07-2024 Glucose [Mass/Vol] 200 mg/dL High 70-105 [facility] Comment on above: Order Comment: Waive d Testing in the ED is performed under the ED CLIA certificate #[id number]. Result Comment: droc kol Performed By: #### L [id number] ####[facility] ([facility])[address] [place] [address] Glucose [Mass/Vol] 211 mg/dL High 70-105 [facility] Comment on above: Order Comment: Waive d Testing in the ED is performed under the ED CLIA certificate #[id number]. Result Comment: awul ff3 Performed By: #### L [id number] ####[facility] ([facility])[address] [place] [address] Glucose [Mass/Vol] 298 mg/dL High 70-105 [facility] Comment on above: Order Comment: Waive d Testing in the ED is performed under the ED CLIA certificate #[id number]. Result Comment: awul ff3 Performed By: #### L [id number] ####[facility] ([facility])[address] [place] [address] Glucose [Mass/Vol] 155 mg/dL High 70-105 [facility] Comment on above: Order Comment: Waive d Testing in the ED is performed under the ED CLIA certificate #[id number]. Result Comment: [email or web address] [email or web address] Performed By: #### L [id number] ####[facility] ([facility])[address] [place] [address] 30on 09-06-2024 30 Normal [facility] 30 Normal [facility] BASIC METABOLIC PANELon 08-21 Anion gap [Moles/Vol] 11 mmol/L Normal 7-20 [facility] Comment on above: Performed By: #### L [id number] ####[facility] ([facility] [place] [address] Calcium [Mass/Vol] 9.8 mg/dL Normal 8.6-10.3 [facility] Comment on above: Performed By: #### L [id number] ####[facility] ([facility])[address] [place] [address] Chloride [Moles/Vol] 98 mmol/L Normal 98-107 [facility] Comment on above: Performed By: #### L [id number] ####[facility] ([facility])[address] [place] [address] CO2 [Moles/Vol] 31 mmol/L Normal 21-31 [facility] Comment on above: Performed By: #### L [id number] ####[facility] ([facility])[address] [place] [address] Creatinine [Mass/Vol] 0.90 mg/dL Normal 0.70-1.30 [facility] Comment on above: Performed By: #### L [id number] ####[facility] ([facility])[address] [place] [address] GLOMERULAR FILTRATION RATE ML/MIN/1.73 SQ M.PREDICTED 94.8 mL/min/1.73m*2 Normal >60.0 [facility] Comment on above: Result Comment: [facility]???s estimated glomerular filtration rate (eGFR) will [...] of individuals. Performed By: #### L [id number] ####[facility] ([facility])[address] [place] [address] Glucose [Mass/Vol] 244 mg/dL High 70-100 [facility] Comment on above: Performed By: #### L [id number] ####[facility] ([facility])[address] [place] [address] Potassium [Moles/Vol] 3.9 mmol/L Normal 3.5-5.1 [facility] Comment on above: Performed By: #### L [id number] ####[facility] ([facility])[address] [address] Sodium [Moles/Vol] 136 mmol/L Normal 136-145 [facility] Comment on above: Performed By: #### L [id number] ####[facility] ([facility])[address] [address] Urea nitrogen [Mass/Vol] 18 mg/dL Normal 7-25 [facility] Comment on above: Performed By: #### L [id number] ####[facility] ([facility])[address] [place] [address] UREA NITROGEN/CREATININE (MASS RATIO) IN SER/PLAS 20.0 Normal [facility] Comment on above: Performed By: #### L [id number] ####[facility] ([facility])[address] [place] [address] CBC WITH AUTO DIFFERENTIALon 09-06-2024 Basophils (Bld) [#/Vol] 0.07 10*3/uL Normal 0.00-0.20 [facility] Comment on above: Performed By: #### L [id number] ####[facility] ([facility])[address] [place], [place] [address] Basophils/100 WBC (Bld) 1.0 % Normal 0.0-1.0 [facility] Comment on above: Performed By: #### L [id number] ####[facility] ([facility])[address] [place] [address] Eosinophils (Bld) [#/Vol] 0.40 10*3/uL Normal 0.00-0.50 [facility] Comment on above: Performed By: #### L [id number] ####[facility] ([facility] [place] [address] Eosinophils/100 WBC (Bld) 5.9 % Normal 0.0-6.0 [facility] Comment on above: Performed By: #### L [id number] ####[facility] ([facility] [place] [address] Erythrocyte distribution width (RBC) [Ratio] 15.2 % High 11.5-15.0 [facility] Comment on above: Performed By: #### L [id number] ####[facility] ([facility])[address] [place] [address] ERYTHROCYTE MEAN CORPUSCULAR HEMOGLOBIN CONCENTRATION (G/DL) BY AUTOMATED 30.7 g/dL Low 32.0-35.0 [facility] Comment on above: Performed By: #### L [id number] ####[facility] ([facility])[address] [place] [address] Hematocrit (Bld) [Volume fraction] 47.3 % Normal 39.0-55.0 [facility] Comment on above: Performed By: #### L [id number] ####[facility] ([facility])[address] [place] [address] Hemoglobin (Bld) [Mass/Vol] 14.5 g/dL Normal 13.0-17.0 [facility] Comment on above: Performed By: #### L [id number] ####[facility] ([facility])[address] [place] [address] Immature granulocytes (Bld) [#/Vol] 0.05 10*3/uL Normal 0.00-0.20 [facility] Comment on above: Performed By: #### L [id number] ####[facility] ([facility])[address] [place] [address] Immature granulocytes/100 WBC (Bld) 0.7 % Normal 0.0-1.0 [facility] Comment on above: Performed By: #### L [id number] ####[facility] ([facility])[address] [place] [address] Lymphocytes (Bld) [#/Vol] 1.52 10*3/uL Normal 1.20-4.00 [facility] Comment on above: Performed By: #### L [id number] ####[facility] ([facility])[address] [place] [address] Lymphocytes/100 WBC (Bld) 22.5 % Normal 20.0-45.0 [facility] Comment on above: Performed By: #### L [id number] ####[facility] ([facility])[address] [place] [address] MCH (RBC) [Entitic mass] 29.1 pg Normal 27.0-33.0 [facility] Comment on above: Performed By: #### L [id number] ####[facility] ([facility] [place] [address] MCV (RBC) [Entitic vol] 95.0 fL Normal 82.0-98.0 [facility] Comment on above: Performed By: #### L [id number] ####[facility] ([facility] [place] [address] Monocytes (Bld) [#/Vol] 0.74 10*3/uL Normal 0.10-1.00 [facility] Comment on above: Performed By: #### L [id number] ####[facility] ([facility])[address] [place] [address] Monocytes/100 WBC (Bld) 10.9 % Normal 5.0-12.0 [facility] Comment on above: Performed By: #### L [id number] ####[facility] ([facility] [place] [address] Neutrophils (Bld) [#/Vol] 3.98 10*3/uL Normal 1.60-7.60 [facility] Comment on above: Performed By: #### L [id number] ####[facility] ([facility])[address] [place] [address] Neutrophils/100 WBC (Bld) 59.0 % Normal 40.0-72.0 [facility] Comment on above: Performed By: #### L [id number] ####[facility] ([facility])[address] [place] [address] NRBC (PER 100 WBCS) BY AUTOMATED COUNT 0.0 % Normal 0 [facility] Comment on above: Performed By: #### L [id number] ####[facility] ([facility])[address] [place] [address] PLATELETS (10*3/UL) IN BLOOD AUTOMATED COUNT 251 10*3/uL Normal 150-400 [facility] Comment on above: Performed By: #### L [id number] ####[facility] ([facility])[address] [place] [address] RBC (Bld) [#/Vol] 4.98 10*6/uL Normal 4.20-5.70 [facility] Comment on above: Performed By: #### L [id number] ####[facility] ([facility])[address] [place] [address] WBC (Bld) [#/Vol] 6.76 10*3/uL Normal 4.00-10.60 [facility] Comment on above: Performed By: #### L [id number] ####[facility] ([facility])[address] [place] [address] MAGNESIUMon 09-06-2024 Magnesium [Mass/Vol] 1.6 mg/dL Low 1.9-2.7 [facility] Comment on above: Performed By: #### L [id number] ####[facility] ([facility])[address] [place] [address] NURSNOTEon 09-06-2024 NURSNOTE Signed off to Ian engel RN--with bedside rounding Pt. Cont. To sit up in a chair at bedside Call light within reach [facility] NURSNOTE [facility] NURSNOTE Pt refused to go yeni k to bed at this time Pt. Cont. To sit up in a chair at bedside No c/o of SOB or nausea at this time Resp. Easy @ 18/min [facility] PHOSPHORUSon 09-06-2024 Magnesium [Mass/Vol] 3.4 mg/dL Normal 2.5-5.0 [facility] Comment on above: Performed By: #### L [id number] ####[facility] ([facility])[address] [place] [address] POCT GLUCOSE METER UNSOLICIT ED RESULTSon 09-06-2024 Glucose [Mass/Vol] 255 mg/dL High 70-105 [facility] Comment on above: Order Comment: Waive d Testing in the ED is performed under the ED CLIA certificate #[id number]. Result Comment: [email or web address] Performed By: #### L [id number] ####[facility] ([facility])[address] [place] [address] Glucose [Mass/Vol] 208 mg/dL High 70-105 [facility] Comment on above: Order Comment: Waive d Testing in the ED is performed under the ED CLIA certificate #[id number]. Result Comment: [email or web address] Performed By: #### L [id number] ####[facility] ([facility])[address] [place] [address] Glucose [Mass/Vol] 173 mg/dL High 70-105 [facility] Comment on above: Order Comment: Waive d Testing in the ED is performed under the ED CLIA certificate #[id number]. Result Comment: [email or web address] Performed By: #### L [id number] ####[facility] ([facility])[address] [place] [address] Glucose [Mass/Vol] 210 mg/dL High 70-105 [facility] Comment on above: Order Comment: Waive d Testing in the ED is performed under the ED CLIA certificate #[id number]. Result Comment: [email or web address] Performed By: #### L [id number] ####[facility] ([facility]ER)[address] [place] [address] BASIC METABOLIC PANELon 08-21 Anion gap [Moles/Vol] 8 mmol/L Normal 7-20 [facility] Comment on above: Performed By: #### L [id number] ####[facility] ([facility])[address] [place] [address] Calcium [Mass/Vol] 9.9 mg/dL Normal 8.6-10.3 [facility] Comment on above: Performed By: #### L [id number] ####[facility] ([facility]ER)[address] [place] [address] Chloride [Moles/Vol] 98 mmol/L Normal 98-107 [facility] Comment on above: Performed By: #### L [id number] ####[facility] ([facility])[address] [place] [address] CO2 [Moles/Vol] 33 mmol/L High 21-31 [facility] Comment on above: Performed By: #### L [id number] ####[facility] ([facility])[address] [place] [address] Creatinine [Mass/Vol] 0.90 mg/dL Normal 0.70-1.30 [facility] Comment on above: Performed By: #### L [id number] ####[facility] ([facility])[address] [place] [address] GLOMERULAR FILTRATION RATE ML/MIN/1.73 SQ M.PREDICTED 94.8 mL/min/1.73m*2 Normal >60.0 [facility] Comment on above: Result Comment: The [facility]???s estimated glomerular filtration rate (eGFR) will [...] of individuals. Performed By: #### L [id number] ####[facility] ([facility] [place] [address] Glucose [Mass/Vol] 142 mg/dL High 70-100 [facility] Comment on above: Performed By: #### L [id number] ####[facility] ([facility] [place] [address] Potassium [Moles/Vol] 4.1 mmol/L Normal 3.5-5.1 [facility] Comment on above: Performed By: #### L [id number] ####[facility] ([facility])[address] [place] [address] Sodium [Moles/Vol] 135 mmol/L Low 136-145 [facility] Comment on above: Performed By: #### L [id number] ####[facility] ([facility])[address] [place] [address] Urea nitrogen [Mass/Vol] 19 mg/dL Normal 7-25 [facility] Comment on above: Performed By: #### L [id number] ####[facility] ([facility])[address] [place] [address] UREA NITROGEN/CREATININE (MASS RATIO) IN SER/PLAS 21.1 Normal [facility] Comment on above: Performed By: #### L [id number] ####[facility] ([facility])[address] [place] [address] CBC WITH AUTO DIFFERENTIALon 09-05-2024 Basophils (Bld) [#/Vol] 0.07 10*3/uL Normal 0.00-0.20 [facility] Comment on above: Performed By: #### L [id number] ####[facility] ([facility])[address] [place] [address] Basophils/100 WBC (Bld) 0.9 % Normal 0.0-1.0 [facility] Comment on above: Performed By: #### L [id number] ####[facility] ([facility])[address] [place] [address] Eosinophils (Bld) [#/Vol] 0.38 10*3/uL Normal 0.00-0.50 [facility] Comment on above: Performed By: #### L [id number] ####[facility] ([facility])[address] [facility] [place] [address] Eosinophils/100 WBC (Bld) 5.0 % Normal 0.0-6.0 [facility] Comment on above: Performed By: #### L [id number] ####[facility] ([facility])[address] [place] [address] Erythrocyte distribution width (RBC) [Ratio] 15.2 % High 11.5-15.0 [facility] Comment on above: Performed By: #### L [id number] ####[facility] ([facility] [place] [address] ERYTHROCYTE MEAN CORPUSCULAR HEMOGLOBIN CONCENTRATION (G/DL) BY AUTOMATED 31.4 g/dL Low 32.0-35.0 [facility] Comment on above: Performed By: #### L [id number] ####[facility] ([facility]AK[facility])[address] [place] [address] Hematocrit (Bld) [Volume fraction] 47.1 % Normal 39.0-55.0 [facility] Comment on above: Performed By: #### L [id number] ####[facility] ([facility] [place] [address] Hemoglobin (Bld) [Mass/Vol] 14.8 g/dL Normal 13.0-17.0 [facility] Comment on above: Performed By: #### L [id number] ####[facility] ([facility])[address] [place] [address] Immature granulocytes (Bld) [#/Vol] 0.06 10*3/uL Normal 0.00-0.20 [facility] Comment on above: Performed By: #### L [id number] ####[facility] ([facility])[address] [place] [address] Immature granulocytes/100 WBC (Bld) 0.8 % Normal 0.0-1.0 [facility] Comment on above: Performed By: #### L [id number] ####[facility] ([facility])[address] [place] [address] Lymphocytes (Bld) [#/Vol] 1.99 10*3/uL Normal 1.20-4.00 [facility] Comment on above: Performed By: #### L [id number] ####[facility] ([facility]ER)[address] [place] [address] Lymphocytes/100 WBC (Bld) 26.0 % Normal 20.0-45.0 [facility] Comment on above: Performed By: #### L [id number] ####[facility] ([facility])[address] [place] [address] MCH (RBC) [Entitic mass] 28.8 pg Normal 27.0-33.0 [facility] Comment on above: Performed By: #### L [id number] ####[facility] (BE[facility]ER)[address] [place] [address] MCV (RBC) [Entitic vol] 91.6 fL Normal 82.0-98.0 [facility] Comment on above: Performed By: #### L [id number] ####[facility] ([facility]ER)[address] [place] [address] Monocytes (Bld) [#/Vol] 0.77 10*3/uL Normal 0.10-1.00 [facility] Comment on above: Performed By: #### L [id number] ####[facility] ([facility]ER)[address] [place] [address] Monocytes/100 WBC (Bld) 10.1 % Normal 5.0-12.0 [facility] Comment on above: Performed By: #### L [id number] ####[facility] (BE[facility]ER)[address] [place] [address] Neutrophils (Bld) [#/Vol] 4.39 10*3/uL Normal 1.60-7.60 [facility] Comment on above: Performed By: #### L [id number] ####[facility] ([facility]ER)[address] [place] [address] Neutrophils/100 WBC (Bld) 57.2 % Normal 40.0-72.0 [facility] Comment on above: Performed By: #### L [id number] ####[facility] ([facility]ER)[address] [place] [address] NRBC (PER 100 WBCS) BY AUTOMATED COUNT 0.0 % Normal 0 [facility] Comment on above: Performed By: #### L [id number] ####[facility] ([facility]ER)[address] [place] [address] PLATELETS (10*3/UL) IN BLOOD AUTOMATED COUNT 274 10*3/uL Normal 150-400 [facility] Comment on above: Performed By: #### L [id number] ####[facility] ([facility])[address] [place] [address] RBC (Bld) [#/Vol] 5.14 10*6/uL Normal 4.20-5.70 [facility] Comment on above: Performed By: #### L [id number] ####[facility] ([facility])[address] [place] [address] WBC (Bld) [#/Vol] 7.66 10*3/uL Normal 4.00-10.60 [facility] Comment on above: Performed By: #### L [id number] ####[facility] ([facility])[address] [place] [address] MAGNESIUMon 09-05-2024 Magnesium [Mass/Vol] 1.6 mg/dL Low 1.9-2.7 [facility] Comment on above: Performed By: #### L [id number] ####[facility] ([facility])[address] [place] [address] PHOSPHORUSon 09-05-2024 Magnesium [Mass/Vol] 2.8 mg/dL Normal 2.5-5.0 [facility] Comment on above: Performed By: #### L [id number] ####[facility] ([facility])[address] [place] [address] POCT GLUCOSE METER UNSOLICIT ED RESULTSon 09-05-2024 Glucose [Mass/Vol] 221 mg/dL High 70-105 [facility] Comment on above: Order Comment: Waive d Testing in the ED is performed under the ED CLIA certificate #[id number]. Result Comment: [email or web address] Performed By: #### L [id number] ####[facility] ([facility])[address] [place] [address] Glucose [Mass/Vol] 204 mg/dL High 70-105 [facility] Comment on above: Order Comment: Waive d Testing in the ED is performed under the ED CLIA certificate #[id number]. Result Comment: [email or web address] Performed By: #### L [id number] ####[facility] ([facility]ER)[address] [place] [address] Glucose [Mass/Vol] 222 mg/dL High 70-105 [facility] Comment on above: Order Comment: Waive d Testing in the ED is performed under the ED CLIA certificate #[id number]. Result Comment: [email or web address] Performed By: #### L [id number] ####[facility] ([facility]ER)[address] [place] [address] Glucose [Mass/Vol] 141 mg/dL High 70-105 [facility] Comment on above: Order Comment: Waive d Testing in the ED is performed under the ED CLIA certificate #[id number]. Result Comment: [email or web address] Performed By: #### L [id number] ####[facility] ([facility]ER)[address] [place] [address] 30on 09-04-2024 30 Normal [facility] BASIC METABOLIC PANELon 08-21 Anion gap [Moles/Vol] 7 mmol/L Normal 7-20 [facility] Comment on above: Performed By: #### L [id number] ####[facility] ([facility]ER)[address] [place] [address] Calcium [Mass/Vol] 9.6 mg/dL Normal 8.6-10.3 [facility] Comment on above: Performed By: #### L [id number] ####[facility] (BE[facility]ER)[address] [place] [address] Chloride [Moles/Vol] 98 mmol/L Normal 98-107 [facility] Comment on above: Performed By: #### L [id number] ####[facility] ([facility]ER)[address] [place] [address] CO2 [Moles/Vol] 35 mmol/L High 21-31 [facility] Comment on above: Performed By: #### L [id number] ####[facility] ([facility])[address] [place] [address] Creatinine [Mass/Vol] 0.88 mg/dL Normal 0.70-1.30 [facility] Comment on above: Performed By: #### L [id number] ####[facility] ([facility])[address] [place] [address] GLOMERULAR FILTRATION RATE ML/MIN/1.73 SQ M.PREDICTED 95.4 mL/min/1.73m*2 Normal >60.0 [facility] Comment on above: Result Comment: The [facility]???s estimated glomerular filtration rate (eGFR) will [...] of individuals. Performed By: #### L [id number] ####[facility] ([facility])[address] [place] [address] Glucose [Mass/Vol] 155 mg/dL High 70-100 [facility] Comment on above: Performed By: #### L [id number] ####[facility] ([facility])[address] [place] [address] Potassium [Moles/Vol] 4.3 mmol/L Normal 3.5-5.1 [facility] Comment on above: Performed By: #### L [id number] ####[facility] ([facility])[address] [facility] [place] [address] Sodium [Moles/Vol] 136 mmol/L Normal 136-145 [facility] Comment on above: Performed By: #### L [id number] ####[facility] (BEAKER)[address] [place] [address] Urea nitrogen [Mass/Vol] 22 mg/dL Normal 7-25 [facility] Comment on above: Performed By: #### L [id number] ####[facility] ([facility])[address] [place] [address] UREA NITROGEN/CREATININE (MASS RATIO) IN SER/PLAS 25.0 Normal [facility] Comment on above: Performed By: #### L [id number] ####[facility] ([facility])[address] [place] [address] CBC WITH AUTO DIFFERENTIALon 09-04-2024 Basophils (Bld) [#/Vol] 0.06 10*3/uL Normal 0.00-0.20 [facility] Comment on above: Performed By: #### L [id number] ####[facility] ([facility])[address] [place] [address] Basophils/100 WBC (Bld) 1.0 % Normal 0.0-1.0 [facility] Comment on above: Performed By: #### L [id number] ####[facility] (BEAKER)[address] [place] [address] Eosinophils (Bld) [#/Vol] 0.38 10*3/uL Normal 0.00-0.50 [facility] Comment on above: Performed By: #### L [id number] ####[facility] [place] [address] Eosinophils/100 WBC (Bld) 6.1 % High 0.0-6.0 [facility] Comment on above: Performed By: #### L [id number] ####[facility] (BEAKER)[address] [place] [address] Erythrocyte distribution width (RBC) [Ratio] 15.2 % High 11.5-15.0 [facility] Comment on above: Performed By: #### L [id number] ####[facility] ([facility]ER)[address] [place] [address] ERYTHROCYTE MEAN CORPUSCULAR HEMOGLOBIN CONCENTRATION (G/DL) BY AUTOMATED 30.6 g/dL Low 32.0-35.0 [facility] Comment on above: Performed By: #### L [id number] ####[facility] ([facility] [place] [address] Hematocrit (Bld) [Volume fraction] 48.4 % Normal 39.0-55.0 [facility] Comment on above: Performed By: #### L [id number] ####[facility] ([facility])[address] [place] [address] Hemoglobin (Bld) [Mass/Vol] 14.8 g/dL Normal 13.0-17.0 [facility] Comment on above: Performed By: #### L [id number] ####[facility] ([facility] [place] [address] Immature granulocytes (Bld) [#/Vol] 0.04 10*3/uL Normal 0.00-0.20 [facility] Comment on above: Performed By: #### L [id number] ####[facility] ([facility] [place] [address] Immature granulocytes/100 WBC (Bld) 0.6 % Normal 0.0-1.0 [facility] Comment on above: Performed By: #### L [id number] ####[facility] ([facility])[address] [place] [address] Lymphocytes (Bld) [#/Vol] 1.68 10*3/uL Normal 1.20-4.00 [facility] Comment on above: Performed By: #### L [id number] ####[facility] ([facility])[address] [place] [address] Lymphocytes/100 WBC (Bld) 27.1 % Normal 20.0-45.0 [facility] Comment on above: Performed By: #### L [id number] ####[facility] ([facility])[address] [place] [address] MCH (RBC) [Entitic mass] 28.6 pg Normal 27.0-33.0 [facility] Comment on above: Performed By: #### L [id number] ####[facility] ([facility] [place] [address] MCV (RBC) [Entitic vol] 93.6 fL Normal 82.0-98.0 [facility] Comment on above: Performed By: #### L [id number] ####[facility] ([facility] [place] [address] Monocytes (Bld) [#/Vol] 0.74 10*3/uL Normal 0.10-1.00 [facility] Comment on above: Performed By: #### L [id number] ####[facility] ([facility])[address] [place] [address] Monocytes/100 WBC (Bld) 11.9 % Normal 5.0-12.0 [facility] Comment on above: Performed By: #### L [id number] ####[facility] ([facility])[address] [place] [address] Neutrophils (Bld) [#/Vol] 3.31 10*3/uL Normal 1.60-7.60 [facility] Comment on above: Performed By: #### L [id number] ####[facility] ([facility])[address] [place] [address] Neutrophils/100 WBC (Bld) 53.3 % Normal 40.0-72.0 [facility] Comment on above: Performed By: #### L [id number] ####[facility] ([facility] [place] [address] NRBC (PER 100 WBCS) BY AUTOMATED COUNT 0.0 % Normal 0 [facility] Comment on above: Performed By: #### L [id number] ####[facility] ([facility] [place] [address] PLATELETS (10*3/UL) IN BLOOD AUTOMATED COUNT 254 10*3/uL Normal 150-400 [facility] Comment on above: Performed By: #### L [id number] ####[facility] ([facility] [place] [address] RBC (Bld) [#/Vol] 5.17 10*6/uL Normal 4.20-5.70 [facility] Comment on above: Performed By: #### L [id number] ####[facility] ([facility])[address] [place] [address] WBC (Bld) [#/Vol] 6.21 10*3/uL Normal 4.00-10.60 [facility] Comment on above: Performed By: #### L [id number] ####[facility] ([facility])[address] [place] [address] POCT GLUCOSE METER UNSOLICIT ED RESULTSon 09-04-2024 Glucose [Mass/Vol] 219 mg/dL High 70-105 [facility] Comment on above: Order Comment: Waive d Testing in the ED is performed under the ED CLIA certificate #[id number]. Result Comment: [email or web address] Performed By: #### L [id number] ####[facility] ([facility])[address] [place] [address] Glucose [Mass/Vol] 156 mg/dL High 70-105 [facility] Comment on above: Order Comment: Waive d Testing in the ED is performed under the ED CLIA certificate #[id number]. Result Comment: [email or web address] Performed By: #### L [id number] ####[facility] ([facility])[address] [place] [address] Glucose [Mass/Vol] 190 mg/dL High 70-105 [facility] Comment on above: Order Comment: Waive d Testing in the ED is performed under the ED CLIA certificate #[id number]. Result Comment: [email or web address] Performed By: #### L [id number] ####[facility] ([facility] [place] [address] Glucose [Mass/Vol] 149 mg/dL High 70-105 [facility] Comment on above: Order Comment: Waive d Testing in the ED is performed under the ED CLIA certificate #[id number]. Result Comment: [email or web address] Performed By: #### L [id number] ####[facility] ([facility])[address] [place] [address] 30on 09-03-2024 30 Normal [facility] BASIC METABOLIC PANELon 08-21 Anion gap [Moles/Vol] 11 mmol/L Normal 7-20 [facility] Comment on above: Performed By: #### L [id number] ####[facility] ([facility])[address] [place] [address] Calcium [Mass/Vol] 9.7 mg/dL Normal 8.6-10.3 [facility] Comment on above: Performed By: #### L [id number] ####[facility] ([facility])[address] [place] [address] Chloride [Moles/Vol] 96 mmol/L Low 98-107 [facility] Comment on above: Performed By: #### L [id number] ####[facility] ([facility])[address] [place] [address] CO2 [Moles/Vol] 33 mmol/L High 21-31 [facility] Comment on above: Performed By: #### L [id number] ####[facility] ([facility])[address] [place] [address] Creatinine [Mass/Vol] 0.87 mg/dL Normal 0.70-1.30 [facility] Comment on above: Performed By: #### L [id number] ####[facility] ([facility])[address] [place] [address] GLOMERULAR FILTRATION RATE ML/MIN/1.73 SQ M.PREDICTED 95.8 mL/min/1.73m*2 Normal >60.0 [facility] Comment on above: Result Comment: The [facility]???s estimated glomerular filtration rate (eGFR) will [...] of individuals. Performed By: #### L [id number] ####[facility] ([facility])[address] [place] [address] Glucose [Mass/Vol] 161 mg/dL High 70-100 [facility] Comment on above: Performed By: #### L [id number] ####[facility] ([facility])[address] [place] [address] Potassium [Moles/Vol] 4.2 mmol/L Normal 3.5-5.1 [facility] Comment on above: Performed By: #### L [id number] ####[facility] ([facility])[address] [place] [address] Sodium [Moles/Vol] 136 mmol/L Normal 136-145 [facility] Comment on above: Performed By: #### L [id number] ####[facility] ([facility])[address] [place] [address] Urea nitrogen [Mass/Vol] 23 mg/dL Normal 7-25 [facility] Comment on above: Performed By: #### L [id number] ####[facility] ([facility])[address] [place] [address] UREA NITROGEN/CREATININE (MASS RATIO) IN SER/PLAS 26.4 Normal [facility] Comment on above: Performed By: #### L [id number] ####[facility] ([facility])[address] [place] [address] CBC WITH AUTO DIFFERENTIALon 09-03-2024 Basophils (Bld) [#/Vol] 0.07 10*3/uL Normal 0.00-0.20 [facility] Comment on above: Performed By: #### L [id number] ####[facility] ([facility])[address] [place] [address] Basophils/100 WBC (Bld) 0.8 % Normal 0.0-1.0 [facility] Comment on above: Performed By: #### L [id number] ####[facility] ([facility])[address] [place] [address] Eosinophils (Bld) [#/Vol] 0.40 10*3/uL Normal 0.00-0.50 [facility] Comment on above: Performed By: #### L [id number] ####[facility] ([facility])[address] [place] [address] Eosinophils/100 WBC (Bld) 4.8 % Normal 0.0-6.0 [facility] Comment on above: Performed By: #### L [id number] ####[facility] ([facility])[address] [place] [address] Erythrocyte distribution width (RBC) [Ratio] 15.3 % High 11.5-15.0 [facility] Comment on above: Performed By: #### L [id number] ####[facility] ([facility])[address] [place] [address] ERYTHROCYTE MEAN CORPUSCULAR HEMOGLOBIN CONCENTRATION (G/DL) BY AUTOMATED 31.8 g/dL Low 32.0-35.0 [facility] Comment on above: Performed By: #### L [id number] ####[facility] ([facility])[address] [place] [address] Hematocrit (Bld) [Volume fraction] 46.8 % Normal 39.0-55.0 [facility] Comment on above: Performed By: #### L [id number] ####[facility] ([facility])[address] [place] [address] Hemoglobin (Bld) [Mass/Vol] 14.9 g/dL Normal 13.0-17.0 [facility] Comment on above: Performed By: #### L [id number] ####[facility] ([facility])[address] [place] [address] Immature granulocytes (Bld) [#/Vol] 0.05 10*3/uL Normal 0.00-0.20 [facility] Comment on above: Performed By: #### L [id number] ####[facility] ([facility])[address] [place] [address] Immature granulocytes/100 WBC (Bld) 0.6 % Normal 0.0-1.0 [facility] Comment on above: Performed By: #### L [id number] ####[facility] ([facility])[address] [place] [address] Lymphocytes (Bld) [#/Vol] 1.73 10*3/uL Normal 1.20-4.00 [facility] Comment on above: Performed By: #### L [id number] ####[facility] ([facility]ER)[address] [place] [address] Lymphocytes/100 WBC (Bld) 20.9 % Normal 20.0-45.0 [facility] Comment on above: Performed By: #### L [id number] ####[facility] ([facility])[address] [place] [address] MCH (RBC) [Entitic mass] 29.3 pg Normal 27.0-33.0 [facility] Comment on above: Performed By: #### L [id number] ####[facility] ([facility])[address] [place] [address] MCV (RBC) [Entitic vol] 91.9 fL Normal 82.0-98.0 [facility] Comment on above: Performed By: #### L [id number] ####[facility] ([facility])[address] [place] [address] Monocytes (Bld) [#/Vol] 0.96 10*3/uL Normal 0.10-1.00 [facility] Comment on above: Performed By: #### L [id number] ####[facility] ([facility])[address] [place] [address] Monocytes/100 WBC (Bld) 11.6 % Normal 5.0-12.0 [facility] Comment on above: Performed By: #### L [id number] ####[facility] ([facility])[address] [place] [address] Neutrophils (Bld) [#/Vol] 5.06 10*3/uL Normal 1.60-7.60 [facility] Comment on above: Performed By: #### L [id number] ####[facility] ([facility])[address] [place] [address] Neutrophils/100 WBC (Bld) 61.3 % Normal 40.0-72.0 [facility] Comment on above: Performed By: #### L [id number] ####[facility] ([facility])[address] [place] [address] NRBC (PER 100 WBCS) BY AUTOMATED COUNT 0.0 % Normal 0 [facility] Comment on above: Performed By: #### L [id number] ####[facility] ([facility])[address] [place] [address] PLATELETS (10*3/UL) IN BLOOD AUTOMATED COUNT 264 10*3/uL Normal 150-400 [facility] Comment on above: Performed By: #### L [id number] ####[facility] ([facility])[address] [place] [address] RBC (Bld) [#/Vol] 5.09 10*6/uL Normal 4.20-5.70 [facility] Comment on above: Performed By: #### L [id number] ####[facility] ([facility])[address] [place] [address] WBC (Bld) [#/Vol] 8.27 10*3/uL Normal 4.00-10.60 [facility] Comment on above: Performed By: #### L [id number] ####[facility] ([facility])[address] [place] [address] MAGNESIUMon 09-03-2024 Magnesium [Mass/Vol] 1.6 mg/dL Low 1.9-2.7 [facility] Comment on above: Performed By: #### L [id number] ####[facility] ([facility])[address] [place] [address] PHOSPHORUSon 09-03-2024 Magnesium [Mass/Vol] 3.3 mg/dL Normal 2.5-5.0 [facility] Comment on above: Performed By: #### L [id number] ####[facility] ([facility])[address] [place] [address] POCT GLUCOSE METER UNSOLICIT ED RESULTSon 09-03-2024 Glucose [Mass/Vol] 168 mg/dL High 70-105 [facility] Comment on above: Order Comment: Waive d Testing in the ED is performed under the ED CLIA certificate #[id number]. Result Comment: [email or web address] Performed By: #### L [id number] ####[facility] ([facility])[address] [place] [address] Glucose [Mass/Vol] 184 mg/dL High 70-105 [facility] Comment on above: Order Comment: Waive d Testing in the ED is performed under the ED CLIA certificate #[id number]. Result Comment: [email or web address] Performed By: #### L [id number] ####[facility] ([facility])[address] [place] [address] Glucose [Mass/Vol] 205 mg/dL High 70-105 [facility] Comment on above: Order Comment: Waive d Testing in the ED is performed under the ED CLIA certificate #[id number]. Result Comment: [id number] Performed By: #### L [id number] ####[facility] ([facility])[address] [place] [address] Glucose [Mass/Vol] 145 mg/dL High 70-105 [facility] Comment on above: Order Comment: Waive d Testing in the ED is performed under the ED CLIA certificate #[id number]. Result Comment: [email or web address] [id number] Performed By: #### L [id number] ####[facility] ([facility])[address] [place] [address] 30on 09-02-2024 30 Normal [facility] BASIC METABOLIC PANELon 08-21 Anion gap [Moles/Vol] 8 mmol/L Normal 7-20 [facility] Comment on above: Performed By: #### L [id number] ####[facility] ([facility])[address] [place] [address] Calcium [Mass/Vol] 9.5 mg/dL Normal 8.6-10.3 [facility] Comment on above: Performed By: #### L [id number] ####[facility] ([facility])[address] [place] [address] Chloride [Moles/Vol] 99 mmol/L Normal 98-107 [facility] Comment on above: Performed By: #### L [id number] ####[facility] ([facility]ER)[address] [place] [address] CO2 [Moles/Vol] 37 mmol/L High 21-31 [facility] Comment on above: Performed By: #### L [id number] ####[facility] ([facility])[address] [place] [address] Creatinine [Mass/Vol] 0.77 mg/dL Normal 0.70-1.30 [facility] Comment on above: Performed By: #### L [id number] ####[facility] ([facility])[address] [place] [address] GLOMERULAR FILTRATION RATE ML/MIN/1.73 SQ M.PREDICTED 99.4 mL/min/1.73m*2 Normal >60.0 [facility] Comment on above: Result Comment: The [facility]???s estimated glomerular filtration rate (eGFR) will [...] of individuals. Performed By: #### L [id number] ####[facility] ([facility])[address] [place] [address] Glucose [Mass/Vol] 160 mg/dL High 70-100 [facility] Comment on above: Performed By: #### L [id number] ####[facility] ([facility])[address] [place] [address] Potassium [Moles/Vol] 4.1 mmol/L Normal 3.5-5.1 [facility] Comment on above: Performed By: #### L [id number] ####[facility] ([facility])[address] [place] [address] Sodium [Moles/Vol] 140 mmol/L Normal 136-145 [facility] Comment on above: Performed By: #### L [id number] ####[facility] ([facility])[address] [place] [address] Urea nitrogen [Mass/Vol] 16 mg/dL Normal 7-25 [facility] Comment on above: Performed By: #### L [id number] ####[facility] ([facility])[address] [place] [address] UREA NITROGEN/CREATININE (MASS RATIO) IN SER/PLAS 20.8 Normal [facility] Comment on above: Performed By: #### L [id number] ####[facility] ([facility])[address] [place] [address] CBC WITH AUTO DIFFERENTIALon 09-02-2024 Basophils (Bld) [#/Vol] 0.07 10*3/uL Normal 0.00-0.20 [facility] Comment on above: Performed By: #### L [id number] ####[facility] ([facility])[address] [place] [address] Basophils/100 WBC (Bld) 1.0 % Normal 0.0-1.0 [facility] Comment on above: Performed By: #### L [id number] ####[facility] ([facility])[address] [place] [address] Eosinophils (Bld) [#/Vol] 0.34 10*3/uL Normal 0.00-0.50 [facility] Comment on above: Performed By: #### L [id number] ####[facility] ([facility])[address] [place] [address] Eosinophils/100 WBC (Bld) 5.0 % Normal 0.0-6.0 [facility] Comment on above: Performed By: #### L [id number] ####[facility] ([facility])[address] [place] [address] Erythrocyte distribution width (RBC) [Ratio] 15.1 % High 11.5-15.0 [facility] Comment on above: Performed By: #### L [id number] ####[facility] ([facility])[address] [place] [address] ERYTHROCYTE MEAN CORPUSCULAR HEMOGLOBIN CONCENTRATION (G/DL) BY AUTOMATED 31.0 g/dL Low 32.0-35.0 [facility] Comment on above: Performed By: #### L [id number] ####[facility] ([facility])[address] [place] [address] Hematocrit (Bld) [Volume fraction] 46.2 % Normal 39.0-55.0 [facility] Comment on above: Performed By: #### L [id number] ####[facility] ([facility] [place] [address] Hemoglobin (Bld) [Mass/Vol] 14.3 g/dL Normal 13.0-17.0 [facility] Comment on above: Performed By: #### L [id number] ####[facility] ([facility] [place] [address] Immature granulocytes (Bld) [#/Vol] 0.04 10*3/uL Normal 0.00-0.20 [facility] Comment on above: Performed By: #### L [id number] ####[facility] ([facility]AKER)[address] [place] [address] Immature granulocytes/100 WBC (Bld) 0.6 % Normal 0.0-1.0 [facility] Comment on above: Performed By: #### L [id number] ####[facility] ([facility]AKER)[address] [place] [address] Lymphocytes (Bld) [#/Vol] 1.60 10*3/uL Normal 1.20-4.00 [facility] Comment on above: Performed By: #### L [id number] ####[facility] ([facility]ER)[address] [place] [address] Lymphocytes/100 WBC (Bld) 23.7 % Normal 20.0-45.0 [facility] Comment on above: Performed By: #### L [id number] ####[facility] ([facility]AKER)[address] [place] [address] MCH (RBC) [Entitic mass] 28.8 pg Normal 27.0-33.0 [facility] Comment on above: Performed By: #### L [id number] ####[facility] ([facility]ER)[address] [place] [address] MCV (RBC) [Entitic vol] 93.1 fL Normal 82.0-98.0 [facility] Comment on above: Performed By: #### L [id number] ####[facility] ([facility]ER)[address] [place] [address] Monocytes (Bld) [#/Vol] 0.86 10*3/uL Normal 0.10-1.00 [facility] Comment on above: Performed By: #### L [id number] ####[facility] ([facility]ER)[address] [facility] [place] [address] Monocytes/100 WBC (Bld) 12.8 % High 5.0-12.0 [facility] Comment on above: Performed By: #### L [id number] ####[facility] ([facility]AKER)[address] [place] [address] Neutrophils (Bld) [#/Vol] 3.83 10*3/uL Normal 1.60-7.60 [facility] Comment on above: Performed By: #### L [id number] ####[facility] ([facility])[address] [place] [address] Neutrophils/100 WBC (Bld) 56.9 % Normal 40.0-72.0 [facility] Comment on above: Performed By: #### L [id number] ####[facility] ([facility])[address] [place] [address] NRBC (PER 100 WBCS) BY AUTOMATED COUNT 0.0 % Normal 0 [facility] Comment on above: Performed By: #### L [id number] ####[facility] ([facility])[address] [place] [address] PLATELETS (10*3/UL) IN BLOOD AUTOMATED COUNT 264 10*3/uL Normal 150-400 [facility] Comment on above: Performed By: #### L [id number] ####[facility] ([facility])[address] [place] [address] RBC (Bld) [#/Vol] 4.96 10*6/uL Normal 4.20-5.70 [facility] Comment on above: Performed By: #### L [id number] ####[facility] ([facility])[address] [place] [address] WBC (Bld) [#/Vol] 6.74 10*3/uL Normal 4.00-10.60 [facility] Comment on above: Performed By: #### L [id number] ####[facility] ([facility])[address] [place] [address] NURSNOTEon 09-02-2024 NURSNOTE Normal [facility] NURSNOTE Normal [facility] PHOSPHORUSon 09-02-2024 Magnesium [Mass/Vol] 3.1 mg/dL Normal 2.5-5.0 [facility] Comment on above: Performed By: #### L [id number] ####[facility] (BEAKER)[address] [place] [address] POCT GLUCOSE METER UNSOLICIT ED RESULTSon 09-02-2024 Glucose [Mass/Vol] 289 mg/dL High 70-105 [facility] Comment on above: Order Comment: Waive d Testing in the ED is performed under the ED CLIA certificate #[id number]. Result Comment: [email or web address] Performed By: #### L [id number] ####[facility] ([facility])[address] [place] [address] Glucose [Mass/Vol] 260 mg/dL High 70-105 [facility] Comment on above: Order Comment: Waive d Testing in the ED is performed under the ED CLIA certificate #[id number]. Result Comment: [email or web address] Performed By: #### L [id number] ####[facility] ([facility])[address] [place] [address] Glucose [Mass/Vol] 204 mg/dL High 70-105 [facility] Comment on above: Order Comment: Waive d Testing in the ED is performed under the ED CLIA certificate #[id number]. Result Comment: [email or web address] Performed By: #### L [id number] ####[facility] ([facility])[address] [place] [address] Glucose [Mass/Vol] 166 mg/dL High 70-105 [facility] Comment on above: Order Comment: Waive d Testing in the ED is performed under the ED CLIA certificate #[id number]. Result Comment: [email or web address] [email or web address] Performed By: #### L [id number] ####[facility] CENTER)[address] [place] [address] 30on 09-01-2024 30 Normal [facility] BASIC METABOLIC PANELon 08-21 Anion gap [Moles/Vol] 7 mmol/L Normal 7-20 [facility] Comment on above: Performed By: #### L [id number] ####[facility] ([employer])[address] [place] [address] Calcium [Mass/Vol] 9.1 mg/dL Normal 8.6-10.3 [facility] Comment on above: Performed By: #### L [id number] ####[facility] ([facility] [place] [address] Chloride [Moles/Vol] 98 mmol/L Normal 98-107 [facility] Comment on above: Performed By: #### L [id number] ####[facility] ([facility])[address] [place] [address] CO2 [Moles/Vol] 36 mmol/L High 21-31 [facility] Comment on above: Performed By: #### L [id number] ####[facility] ([facility])[address] [place] [address] Creatinine [Mass/Vol] 0.84 mg/dL Normal 0.70-1.30 [facility] Comment on above: Performed By: #### L [id number] ####[facility] ([facility])[address] [place] [address] GLOMERULAR FILTRATION RATE ML/MIN/1.73 SQ M.PREDICTED 96.8 mL/min/1.73m*2 Normal >60.0 [facility] Comment on above: Result Comment: The [facility]???s estimated glomerular filtration rate (eGFR) will [...] of individuals. Performed By: #### L [id number] ####[facility] ([facility] [place] [address] Glucose [Mass/Vol] 190 mg/dL High 70-100 [facility] Comment on above: Performed By: #### L [id number] ####[facility] ([facility] [place] [address] Potassium [Moles/Vol] 4.1 mmol/L Normal 3.5-5.1 [facility] Comment on above: Performed By: #### L [id number] ####[facility] ([facility] [place] [address] Sodium [Moles/Vol] 137 mmol/L Normal 136-145 [facility] Comment on above: Performed By: #### L [id number] ####[facility] ([facility] [place] [address] Urea nitrogen [Mass/Vol] 18 mg/dL Normal 7-25 [facility] Comment on above: Performed By: #### L [id number] ####[facility] ([facility])[address] [place] [address] UREA NITROGEN/CREATININE (MASS RATIO) IN SER/PLAS 21.4 Normal [facility] Comment on above: Performed By: #### L [id number] ####[facility] ([facility] [place] [address] CBC WITH AUTO DIFFERENTIALon 09-01-2024 Basophils (Bld) [#/Vol] 0.07 10*3/uL Normal 0.00-0.20 [facility] Comment on above: Performed By: #### L [id number] ####[facility] (BEAKER)[address] [place] [address] Basophils/100 WBC (Bld) 1.0 % Normal 0.0-1.0 [facility] Comment on above: Performed By: #### L [id number] ####[facility] ([facility]AK[facility])[address] [place] [address] Eosinophils (Bld) [#/Vol] 0.37 10*3/uL Normal 0.00-0.50 [facility] Comment on above: Performed By: #### L [id number] ####[facility] (BEAKER)[address] [place] [address] Eosinophils/100 WBC (Bld) 5.1 % Normal 0.0-6.0 [facility] Comment on above: Performed By: #### L [id number] ####[facility] ([facility])[address] [place] [address] Erythrocyte distribution width (RBC) [Ratio] 15.1 % High 11.5-15.0 [facility] Comment on above: Performed By: #### L [id number] ####[facility] ([facility])[address] [place] [address] ERYTHROCYTE MEAN CORPUSCULAR HEMOGLOBIN CONCENTRATION (G/DL) BY AUTOMATED 31.3 g/dL Low 32.0-35.0 [facility] Comment on above: Performed By: #### L [id number] ####[facility] ([facility])[address] [place] [address] Hematocrit (Bld) [Volume fraction] 46.3 % Normal 39.0-55.0 [facility] Comment on above: Performed By: #### L [id number] ####[facility] ([facility])[address] [place] [address] Hemoglobin (Bld) [Mass/Vol] 14.5 g/dL Normal 13.0-17.0 [facility] Comment on above: Performed By: #### L [id number] ####[facility] ([facility] [place] [address] Immature granulocytes (Bld) [#/Vol] 0.04 10*3/uL Normal 0.00-0.20 [facility] Comment on above: Performed By: #### L [id number] ####[facility] ([facility] [place] [address] Immature granulocytes/100 WBC (Bld) 0.6 % Normal 0.0-1.0 [facility] Comment on above: Performed By: #### L [id number] ####[facility] (BEAKER)[address] [place] [address] Lymphocytes (Bld) [#/Vol] 1.46 10*3/uL Normal 1.20-4.00 [facility] Comment on above: Performed By: #### L [id number] ####[facility] (BEAKER)[address] [place] [address] Lymphocytes/100 WBC (Bld) 20.2 % Normal 20.0-45.0 [facility] Comment on above: Performed By: #### L [id number] ####[facility] (BEAKER)[address] [place] [address] MCH (RBC) [Entitic mass] 29.1 pg Normal 27.0-33.0 [facility] Comment on above: Performed By: #### L [id number] ####[facility] (BEAKER)[address] [place] [address] MCV (RBC) [Entitic vol] 92.8 fL Normal 82.0-98.0 [facility] Comment on above: Performed By: #### L [id number] ####[facility] (BEAKER)[address] [place] [address] Monocytes (Bld) [#/Vol] 0.85 10*3/uL Normal 0.10-1.00 [facility] Comment on above: Performed By: #### L [id number] ####[facility] (BEAKER)[address] [place] [address] Monocytes/100 WBC (Bld) 11.8 % Normal 5.0-12.0 [facility] Comment on above: Performed By: #### L [id number] ####[facility] (BEAKER)[address] [place] [address] Neutrophils (Bld) [#/Vol] 4.43 10*3/uL Normal 1.60-7.60 [facility] Comment on above: Performed By: #### L [id number] ####[facility] (BEAKER)[address] [place] [address] Neutrophils/100 WBC (Bld) 61.3 % Normal 40.0-72.0 [facility] Comment on above: Performed By: #### L [id number] ####[facility] (BEAKER)[address] [place] [address] NRBC (PER 100 WBCS) BY AUTOMATED COUNT 0.0 % Normal 0 [facility] Comment on above: Performed By: #### L [id number] ####[facility] ([facility])[address] [place] [address] PLATELETS (10*3/UL) IN BLOOD AUTOMATED COUNT 268 10*3/uL Normal 150-400 [facility] Comment on above: Performed By: #### L [id number] ####[facility] ([facility])[address] [place] [address] RBC (Bld) [#/Vol] 4.99 10*6/uL Normal 4.20-5.70 [facility] Comment on above: Performed By: #### L [id number] ####[facility] ([facility])[address] [place] [address] WBC (Bld) [#/Vol] 7.22 10*3/uL Normal 4.00-10.60 [facility] Comment on above: Performed By: #### L [id number] ####[facility] ([facility])[address] [place] [address] MAGNESIUMon 09-01-2024 Magnesium [Mass/Vol] 1.8 mg/dL Low 1.9-2.7 [facility] Comment on above: Performed By: #### L [id number] ####[facility] ([facility])[address] [place] [address] POCT GLUCOSE METER UNSOLICIT ED RESULTSon 09-01-2024 Glucose [Mass/Vol] 225 mg/dL High 70-105 [facility] Comment on above: Order Comment: Waive d Testing in the ED is performed under the ED CLIA certificate #[id number]. Result Comment: [email or web address] Performed By: #### L [id number] ####[facility] ([facility])[address] [place] [address] Glucose [Mass/Vol] 181 mg/dL High 70-105 [facility] Comment on above: Order Comment: Waive d Testing in the ED is performed under the ED CLIA certificate #[id number]. Result Comment: [email or web address] Performed By: #### L [id number] ####[facility] (BEAKER)[address] [place] [address] Glucose [Mass/Vol] 209 mg/dL High 70-105 [facility] Comment on above: Order Comment: Waive d Testing in the ED is performed under the ED CLIA certificate #[id number]. Result Comment: [email or web address] Performed By: #### L [id number] ####[facility] (BEAKER)[address] [place] [address] Glucose [Mass/Vol] 181 mg/dL High 70-105 [facility] Comment on above: Order Comment: Waive d Testing in the ED is performed under the ED CLIA certificate #[id number]. Result Comment: [email or web address] Performed By: #### L [id number] ####[facility] (BEAKER)[address] [place] [address] 30on 08-31-2024 30 Normal [facility] 30 Normal [facility] BASIC METABOLIC PANELon 08-21 Anion gap [Moles/Vol] 8 mmol/L Normal 7-20 [facility] Comment on above: Performed By: #### L [id number] ####[facility] (BEAKER)[address] [place] [address] Calcium [Mass/Vol] 9.6 mg/dL Normal 8.6-10.3 [facility] Comment on above: Performed By: #### L [id number] ####[facility] (BEAKER)[address] [place] [address] Chloride [Moles/Vol] 97 mmol/L Low 98-107 [facility] Comment on above: Performed By: #### L [id number] ####[facility] (BEAKER)[address] [place] [address] CO2 [Moles/Vol] 35 mmol/L High 21-31 [facility] Comment on above: Performed By: #### L [id number] ####[facility] ([facility])[address] [place] [address] Creatinine [Mass/Vol] 0.85 mg/dL Normal 0.70-1.30 [facility] Comment on above: Performed By: #### L [id number] ####[facility] ([facility])[address] [place] [address] GLOMERULAR FILTRATION RATE ML/MIN/1.73 SQ M.PREDICTED 96.4 mL/min/1.73m*2 Normal >60.0 [facility] Comment on above: Result Comment: The [facility]???s estimated glomerular filtration rate (eGFR) will [...] of individuals. Performed By: #### L [id number] ####[facility] ([facility])[address] [place] [address] Glucose [Mass/Vol] 205 mg/dL High 70-100 [facility] Comment on above: Performed By: #### L [id number] ####[facility] ([facility])[address] [place] [address] Potassium [Moles/Vol] 3.9 mmol/L Normal 3.5-5.1 [facility] Comment on above: Performed By: #### L [id number] ####[facility] ([facility])[address] [place] [address] Sodium [Moles/Vol] 136 mmol/L Normal 136-145 [facility] Comment on above: Performed By: #### L [id number] ####[facility] (BEAKER)[address] [place] [address] Urea nitrogen [Mass/Vol] 21 mg/dL Normal 7-25 [facility] Comment on above: Performed By: #### L [id number] ####[facility] (BEAKER)[address] [place] [address] UREA NITROGEN/CREATININE (MASS RATIO) IN SER/PLAS 24.7 Normal [facility] Comment on above: Performed By: #### L [id number] ####[facility] (BEAKER)[address] [place] [address] CBC WITH AUTO DIFFERENTIALon 08-31-2024 Basophils (Bld) [#/Vol] 0.06 10*3/uL Normal 0.00-0.20 [facility] Comment on above: Performed By: #### L [id number] ####[facility] ([facility] [place] [address] Basophils/100 WBC (Bld) 0.8 % Normal 0.0-1.0 [facility] Comment on above: Performed By: #### L [id number] ####[facility] (BEAKER)[address] [place] [address] Eosinophils (Bld) [#/Vol] 0.38 10*3/uL Normal 0.00-0.50 [facility] Comment on above: Performed By: #### L [id number] ####[facility] (BEAKER)[address] [place], [place] [address] Eosinophils/100 WBC (Bld) 5.3 % Normal 0.0-6.0 [facility] Comment on above: Performed By: #### L [id number] ####[facility] (BEAKER)[address] [place] [address] Erythrocyte distribution width (RBC) [Ratio] 15.2 % High 11.5-15.0 [facility] Comment on above: Performed By: #### L [id number] ####[facility] (BEAKER)[address] [place] [address] ERYTHROCYTE MEAN CORPUSCULAR HEMOGLOBIN CONCENTRATION (G/DL) BY AUTOMATED 30.4 g/dL Low 32.0-35.0 [facility] Comment on above: Performed By: #### L [id number] ####[facility] (BEAKER)[address] [place] [address] Hematocrit (Bld) [Volume fraction] 48.3 % Normal 39.0-55.0 [facility] Comment on above: Performed By: #### L [id number] ####[facility] (BEAKER)[address] [place] [address] Hemoglobin (Bld) [Mass/Vol] 14.7 g/dL Normal 13.0-17.0 [facility] Comment on above: Performed By: #### L [id number] ####[facility] (BEAKER)[address] [place] [address] Immature granulocytes (Bld) [#/Vol] 0.06 10*3/uL Normal 0.00-0.20 [facility] Comment on above: Performed By: #### L [id number] ####[facility] (BEAKER)[address] [place] [address] Immature granulocytes/100 WBC (Bld) 0.8 % Normal 0.0-1.0 [facility] Comment on above: Performed By: #### L [id number] ####[facility] (BEAKER)[address] [place] [address] Lymphocytes (Bld) [#/Vol] 1.17 10*3/uL Low 1.20-4.00 [facility] Comment on above: Performed By: #### L [id number] ####[facility] (BEAKER)[address] [place] [address] Lymphocytes/100 WBC (Bld) 16.3 % Low 20.0-45.0 [facility] Comment on above: Performed By: #### L [id number] ####[facility] (BEAKER)[address] [place] [address] MCH (RBC) [Entitic mass] 29.0 pg Normal 27.0-33.0 [facility] Comment on above: Performed By: #### L [id number] ####[facility] ([facility])[address] [place] [address] MCV (RBC) [Entitic vol] 95.3 fL Normal 82.0-98.0 [facility] Comment on above: Performed By: #### L [id number] ####[facility] ([facility])[address] [place] [address] Monocytes (Bld) [#/Vol] 0.82 10*3/uL Normal 0.10-1.00 [facility] Comment on above: Performed By: #### L [id number] ####[facility] ([facility])[address] [place] [address] Monocytes/100 WBC (Bld) 11.4 % Normal 5.0-12.0 [facility] Comment on above: Performed By: #### L [id number] ####[facility] ([facility])[address] [place] [address] Neutrophils (Bld) [#/Vol] 4.70 10*3/uL Normal 1.60-7.60 [facility] Comment on above: Performed By: #### L [id number] ####[facility] ([facility])[address] [place] [address] Neutrophils/100 WBC (Bld) 65.4 % Normal 40.0-72.0 [facility] Comment on above: Performed By: #### L [id number] ####[facility] ([facility])[address] [place] [address] NRBC (PER 100 WBCS) BY AUTOMATED COUNT 0.0 % Normal 0 [facility] Comment on above: Performed By: #### L [id number] ####[facility] ([facility] [place] [address] PLATELETS (10*3/UL) IN BLOOD AUTOMATED COUNT 278 10*3/uL Normal 150-400 [facility] Comment on above: Performed By: #### L [id number] ####[facility] ([facility])[address] [place] [address] RBC (Bld) [#/Vol] 5.07 10*6/uL Normal 4.20-5.70 [facility] Comment on above: Performed By: #### L [id number] ####[facility] ([facility])[address] [place] [address] WBC (Bld) [#/Vol] 7.19 10*3/uL Normal 4.00-10.60 [facility] Comment on above: Performed By: #### L [id number] ####[facility] ([facility])[address] [place] [address] MAGNESIUMon 08-31-2024 Magnesium [Mass/Vol] 1.6 mg/dL Low 1.9-2.7 [facility] Comment on above: Performed By: #### L [id number] ####[facility] ([facility])[address] [place] [address] POCT GLUCOSE METER UNSOLICIT ED RESULTSon 08-31-2024 Glucose [Mass/Vol] 281 mg/dL High 70-105 [facility] Comment on above: Order Comment: Waive d Testing in the ED is performed under the ED CLIA certificate #[id number]. Result Comment: [email or web address] Performed By: #### L [id number] ####[facility] ([facility])[address] [place] [address] Glucose [Mass/Vol] 157 mg/dL High 70-105 [facility] Comment on above: Order Comment: Waive d Testing in the ED is performed under the ED CLIA certificate #[id number]. Result Comment: [email or web address] Performed By: #### L [id number] ####[facility] ([facility])[address] [place] [address] Glucose [Mass/Vol] 212 mg/dL High 70-105 [facility] Comment on above: Order Comment: Waive d Testing in the ED is performed under the ED CLIA certificate #[id number]. Result Comment: [email or web address] Performed By: #### L [id number] ####[facility] (BEAKER)[address] [place] [address] Glucose [Mass/Vol] 167 mg/dL High 70-105 [facility] Comment on above: Order Comment: Waive d Testing in the ED is performed under the ED CLIA certificate #[id number]. Result Comment: [email or web address] Performed By: #### L [id number] ####[facility] (BEAKER)[address] [place] [address] 30on 08-30-2024 30 Normal [facility] BASIC METABOLIC PANELon 08-21 Anion gap [Moles/Vol] 10 mmol/L Normal 7-20 [facility] Comment on above: Performed By: #### L [id number] ####[facility] (BEAKER)[address] [place] [address] Calcium [Mass/Vol] 10.3 mg/dL Normal 8.6-10.3 [facility] Comment on above: Performed By: #### L [id number] ####[facility] (BEAKER)[address] [place] [address] Chloride [Moles/Vol] 94 mmol/L Low 98-107 [facility] Comment on above: Performed By: #### L [id number] ####[facility] (BEAKER)[address] [place] [address] CO2 [Moles/Vol] 34 mmol/L High 21-31 [facility] Comment on above: Performed By: #### L [id number] ####[facility] (BEAKER)[address] [place] [address] Creatinine [Mass/Vol] 0.98 mg/dL Normal 0.70-1.30 [facility] Comment on above: Performed By: #### L [id number] ####[facility] (BEAKER)[address] [place] [address] GLOMERULAR FILTRATION RATE ML/MIN/1.73 SQ M.PREDICTED 85.6 mL/min/1.73m*2 Normal >60.0 [facility] Comment on above: Result Comment: The [facility]???s estimated glomerular filtration rate (eGFR) will [...] of individuals. Performed By: #### L [id number] ####[facility] ([facility])[address] [place] [place] [address] Glucose [Mass/Vol] 184 mg/dL High 70-100 [facility] Comment on above: Performed By: #### L [id number] ####[facility] ([facility])[address] [facility] [place] [address] Potassium [Moles/Vol] 4.1 mmol/L Normal 3.5-5.1 [facility] Comment on above: Performed By: #### L [id number] ####[facility] ([facility])[address] [place] [address] Sodium [Moles/Vol] 134 mmol/L Low 136-145 [facility] Comment on above: Performed By: #### L [id number] ####[facility] ([facility])[address] [facility] [place] [address] Urea nitrogen [Mass/Vol] 27 mg/dL High 7-25 [facility] Comment on above: Performed By: #### L [id number] ####[facility] ([facility])[address] [place] [address] UREA NITROGEN/CREATININE (MASS RATIO) IN SER/PLAS 27.6 Normal [facility] Comment on above: Performed By: #### L [id number] ####[facility] ([facility])[address] [place] [address] CBC WITH AUTO DIFFERENTIALon 08-30-2024 Basophils (Bld) [#/Vol] 0.09 10*3/uL Normal 0.00-0.20 [facility] Comment on above: Performed By: #### L [id number] ####[facility] ([facility])[address] [place], [place] [address] Basophils/100 WBC (Bld) 1.0 % Normal 0.0-1.0 [facility] Comment on above: Performed By: #### L [id number] ####[facility] ([facility])[address] [place], [place] [address] Eosinophils (Bld) [#/Vol] 0.54 10*3/uL High 0.00-0.50 [facility] Comment on above: Performed By: #### L [id number] ####[facility] ([facility])[address] [place] [address] Eosinophils/100 WBC (Bld) 5.9 % Normal 0.0-6.0 [facility] Comment on above: Performed By: #### L [id number] ####[facility] ([facility]AK[facility])[address] [place] [address] Erythrocyte distribution width (RBC) [Ratio] 14.9 % Normal 11.5-15.0 [facility] Comment on above: Performed By: #### L [id number] ####[facility] (BEAKER)[address] [place] [address] ERYTHROCYTE MEAN CORPUSCULAR HEMOGLOBIN CONCENTRATION (G/DL) BY AUTOMATED 31.0 g/dL Low 32.0-35.0 [facility] Comment on above: Performed By: #### L [id number] ####[facility] (BEAKER)[address] [place] [address] Hematocrit (Bld) [Volume fraction] 50.9 % Normal 39.0-55.0 [facility] Comment on above: Performed By: #### L [id number] ####[facility] (BEAKER)[address] [place] [address] Hemoglobin (Bld) [Mass/Vol] 15.8 g/dL Normal 13.0-17.0 [facility] Comment on above: Performed By: #### L [id number] ####[facility] (BEAKER)[address] [place] [address] Immature granulocytes (Bld) [#/Vol] 0.06 10*3/uL Normal 0.00-0.20 [facility] Comment on above: Performed By: #### L [id number] ####[facility] (BEAKER)[address] [place] [address] Immature granulocytes/100 WBC (Bld) 0.7 % Normal 0.0-1.0 [facility] Comment on above: Performed By: #### L [id number] ####[facility] (BEAKER)[address] [place] [address] Lymphocytes (Bld) [#/Vol] 1.65 10*3/uL Normal 1.20-4.00 [facility] Comment on above: Performed By: #### L [id number] ####[facility] (BEAKER)[address] [place] [address] Lymphocytes/100 WBC (Bld) 17.9 % Low 20.0-45.0 [facility] Comment on above: Performed By: #### L [id number] ####[facility] (BEAKER)[address] [place] [address] MCH (RBC) [Entitic mass] 29.2 pg Normal 27.0-33.0 [facility] Comment on above: Performed By: #### L [id number] ####[facility] (BEAKER)[address] [place] [address] MCV (RBC) [Entitic vol] 93.9 fL Normal 82.0-98.0 [facility] Comment on above: Performed By: #### L [id number] ####[facility] (BEAKER)[address] [place] [address] Monocytes (Bld) [#/Vol] 1.05 10*3/uL High 0.10-1.00 [facility] Comment on above: Performed By: #### L [id number] ####[facility] ([facility])[address] [place] [address] Monocytes/100 WBC (Bld) 11.4 % Normal 5.0-12.0 [facility] Comment on above: Performed By: #### L [id number] ####[facility] ([facility])[address] [place] [address] Neutrophils (Bld) [#/Vol] 5.82 10*3/uL Normal 1.60-7.60 [facility] Comment on above: Performed By: #### L [id number] ####[facility] ([facility])[address] [place] [address] Neutrophils/100 WBC (Bld) 63.1 % Normal 40.0-72.0 [facility] Comment on above: Performed By: #### L [id number] ####[facility] ([facility])[address] [place] [address] NRBC (PER 100 WBCS) BY AUTOMATED COUNT 0.0 % Normal 0 [facility] Comment on above: Performed By: #### L [id number] ####[facility] ([facility])[address] [place] [address] PLATELETS (10*3/UL) IN BLOOD AUTOMATED COUNT 298 10*3/uL Normal 150-400 [facility] Comment on above: Performed By: #### L [id number] ####[facility] [place] [address] RBC (Bld) [#/Vol] 5.42 10*6/uL Normal 4.20-5.70 [facility] Comment on above: Performed By: #### L [id number] ####[facility] (BEAKER)[address] [place] [address] WBC (Bld) [#/Vol] 9.21 10*3/uL Normal 4.00-10.60 [facility] Comment on above: Performed By: #### L [id number] ####[facility] ([facility])[address] [place] [address] CONSULTon 08-30-2024 CONSULT Normal [facility] MAGNESIUMon 08-30-2024 Magnesium [Mass/Vol] 1.7 mg/dL Low 1.9-2.7 [facility] Comment on above: Performed By: #### L [id number] ####[facility] ([facility])[address] [place] [address] NURSNOTEon 08-30-2024 NURSNOTE [facility] POCT GLUCOSE METER UNSOLICIT ED RESULTSon 08-30-2024 Glucose [Mass/Vol] 294 mg/dL High 70-105 [facility] Comment on above: Order Comment: Waive d Testing in the ED is performed under the ED CLIA certificate #[id number]. Result Comment: [email or web address] [id number] Value Noted Performed By: #### L [id number] ####[facility] ([facility])[address] [place] [address] Glucose [Mass/Vol] 162 mg/dL High 70-105 [facility] Comment on above: Order Comment: Waive d Testing in the ED is performed under the ED CLIA certificate #[id number]. Result Comment: abee rbo Performed By: #### L [id number] ####[facility] ([facility])[address] [place] [address] Glucose [Mass/Vol] 193 mg/dL High 70-105 [facility] Comment on above: Order Comment: Waive d Testing in the ED is performed under the ED CLIA certificate #[id number]. Result Comment: abee rbo Performed By: #### L [id number] ####[facility] ([facility])[address] [place] [address] Glucose [Mass/Vol] 235 mg/dL High 70-105 [facility] Comment on above: Order Comment: Waive d Testing in the ED is performed under the ED CLIA certificate #[id number]. Result Comment: [email or web address] Performed By: #### L [id number] ####[facility] (BEAKER)[address] [place] [address] Glucose [Mass/Vol] 209 mg/dL High 70-105 [facility] Comment on above: Order Comment: Waive d Testing in the ED is performed under the ED CLIA certificate #[id number]. Result Comment: [email or web address] [email or web address] Performed By: #### L [id number] ####[facility] (BEAKER)[address] [place] [address] BASIC METABOLIC PANELon 02-0 Anion gap [Moles/Vol] 7 mmol/L Normal 7-20 [facility] Comment on above: Performed By: #### L [id number] ####[facility] (BEAKER)[address] [place] [address] Calcium [Mass/Vol] 10.5 mg/dL High 8.6-10.3 [facility] Comment on above: Performed By: #### L [id number] ####[facility] (BEAKER)[address] [place] [address] Chloride [Moles/Vol] 93 mmol/L Low 98-107 [facility] Comment on above: Performed By: #### L [id number] ####[facility] (BEAKER)[address] [place] [address] CO2 [Moles/Vol] 38 mmol/L High 21-31 [facility] Comment on above: Performed By: #### L [id number] ####[facility] (BEAKER)[address] [place] [address] Creatinine [Mass/Vol] 0.96 mg/dL Normal 0.70-1.30 [facility] Comment on above: Performed By: #### L [id number] ####[facility] (BEAKER)[address] [place] [address] GLOMERULAR FILTRATION RATE ML/MIN/1.73 SQ M.PREDICTED 87.7 mL/min/1.73m*2 Normal >60.0 [facility] Comment on above: Result Comment: The [facility]???s estimated glomerular filtration rate (eGFR) will [...] of individuals. Performed By: #### L [id number] ####[facility] ([facility])[address] [place] [address] Glucose [Mass/Vol] 182 mg/dL High 70-100 [facility] Comment on above: Performed By: #### L [id number] ####[facility] ([facility])[address] [place] [address] Potassium [Moles/Vol] 4.1 mmol/L Normal 3.5-5.1 [facility] Comment on above: Performed By: #### L [id number] ####[facility] ([facility])[address] [place] [address] Sodium [Moles/Vol] 134 mmol/L Low 136-145 [facility] Comment on above: Performed By: #### L [id number] ####[facility] ([facility])[address] [place] [address] Urea nitrogen [Mass/Vol] 23 mg/dL Normal 7-25 [facility] Comment on above: Performed By: #### L [id number] ####[facility] ([facility])[address] [place] [address] UREA NITROGEN/CREATININE (MASS RATIO) IN SER/PLAS 24.0 Normal [facility] Comment on above: Performed By: #### L [id number] ####[facility] ([facility])[address] [place] [address] CBC WITH AUTO DIFFERENTIALon 08-29-2024 Basophils (Bld) [#/Vol] 0.09 10*3/uL Normal 0.00-0.20 [facility] Comment on above: Performed By: #### L [id number] ####[facility] (BEAKER)[address] [place] [address] Basophils/100 WBC (Bld) 1.0 % Normal 0.0-1.0 [facility] Comment on above: Performed By: #### L [id number] ####[facility] (BEAKER)[address] [place] [address] Eosinophils (Bld) [#/Vol] 0.48 10*3/uL Normal 0.00-0.50 [facility] Comment on above: Performed By: #### L [id number] ####[facility] (BEAKER)[address] [place] [address] Eosinophils/100 WBC (Bld) 5.3 % Normal 0.0-6.0 [facility] Comment on above: Performed By: #### L [id number] ####[facility] (BEAKER)[address] [place] [address] Erythrocyte distribution width (RBC) [Ratio] 15.0 % Normal 11.5-15.0 [facility] Comment on above: Performed By: #### L [id number] ####[facility] (BEAKER)[address] [place] [address] ERYTHROCYTE MEAN CORPUSCULAR HEMOGLOBIN CONCENTRATION (G/DL) BY AUTOMATED 30.5 g/dL Low 32.0-35.0 [facility] Comment on above: Performed By: #### L [id number] ####[facility] (BEAKER)[address] [place] [address] Hematocrit (Bld) [Volume fraction] 51.2 % Normal 39.0-55.0 [facility] Comment on above: Performed By: #### L [id number] ####[facility] (BEAKER)[address] [place] [address] Hemoglobin (Bld) [Mass/Vol] 15.6 g/dL Normal 13.0-17.0 [facility] Comment on above: Performed By: #### L [id number] ####[facility] (BEAKER)[address] [place] [address] Immature granulocytes (Bld) [#/Vol] 0.07 10*3/uL Normal 0.00-0.20 [facility] Comment on above: Performed By: #### L [id number] ####[facility] (BEAKER)[address] [place] [address] Immature granulocytes/100 WBC (Bld) 0.8 % Normal 0.0-1.0 [facility] Comment on above: Performed By: #### L [id number] ####[facility] (BEAKER)[address] [place] [address] Lymphocytes (Bld) [#/Vol] 1.41 10*3/uL Normal 1.20-4.00 [facility] Comment on above: Performed By: #### L [id number] ####[facility] (BEAKER)[address] [place] [address] Lymphocytes/100 WBC (Bld) 15.7 % Low 20.0-45.0 [facility] Comment on above: Performed By: #### L [id number] ####[facility] (BEAKER)[address] [place] [address] MCH (RBC) [Entitic mass] 29.0 pg Normal 27.0-33.0 [facility] Comment on above: Performed By: #### L [id number] ####[facility] (BEAKER)[address] [place] [address] MCV (RBC) [Entitic vol] 95.2 fL Normal 82.0-98.0 [facility] Comment on above: Performed By: #### L [id number] ####[facility] (BEAKER)[address] [facility] [place] [address] Monocytes (Bld) [#/Vol] 0.82 10*3/uL Normal 0.10-1.00 [facility] Comment on above: Performed By: #### L [id number] ####[facility] ([facility])[address] [place] [address] Monocytes/100 WBC (Bld) 9.1 % Normal 5.0-12.0 [facility] Comment on above: Performed By: #### L [id number] ####[facility] ([facility])[address] [place] [address] Neutrophils (Bld) [#/Vol] 6.11 10*3/uL Normal 1.60-7.60 [facility] Comment on above: Performed By: #### L [id number] ####[facility] ([facility])[address] [place] [address] Neutrophils/100 WBC (Bld) 68.1 % Normal 40.0-72.0 [facility] Comment on above: Performed By: #### L [id number] ####[facility] ([facility])[address] [place] [address] NRBC (PER 100 WBCS) BY AUTOMATED COUNT 0.0 % Normal 0 [facility] Comment on above: Performed By: #### L [id number] ####[facility] ([facility])[address] [place] [address] PLATELETS (10*3/UL) IN BLOOD AUTOMATED COUNT 262 10*3/uL Normal 150-400 [facility] Comment on above: Performed By: #### L [id number] ####[facility] ([facility])[address] [place] [address] RBC (Bld) [#/Vol] 5.38 10*6/uL Normal 4.20-5.70 [facility] Comment on above: Performed By: #### L [id number] ####[facility] ([facility])[address] [place] [address] WBC (Bld) [#/Vol] 8.98 10*3/uL Normal 4.00-10.60 [facility] Comment on above: Performed By: #### L [id number] ####[facility] ([facility])[address] [place] [address] MAGNESIUMon 08-29-2024 Magnesium [Mass/Vol] 1.7 mg/dL Low 1.9-2.7 [facility] Comment on above: Performed By: #### L [id number] ####[facility] ([facility])[address] [place] [address] POCT GLUCOSE METER UNSOLICIT ED RESULTSon 08-29-2024 Glucose [Mass/Vol] 284 mg/dL High 70-105 [facility] Comment on above: Order Comment: Waive d Testing in the ED is performed under the ED CLIA certificate #[id number]. Result Comment: [email or web address] Performed By: #### L [id number] ####[facility] ([facility])[address] [place] [address] Glucose [Mass/Vol] 259 mg/dL High 70-105 [facility] Comment on above: Order Comment: Waive d Testing in the ED is performed under the ED CLIA certificate #[id number]. Result Comment: aall [email or web address] Performed By: #### L [id number] ####[facility] ([facility])[address] [place] [address] Glucose [Mass/Vol] 301 mg/dL High 70-105 [facility] Comment on above: Order Comment: Waive d Testing in the ED is performed under the ED CLIA certificate #[id number]. Result Comment: aall [id number] Performed By: #### L [id number] ####[facility] ([facility])[address] [place] [address] Glucose [Mass/Vol] 166 mg/dL High 70-105 [facility] Comment on above: Order Comment: Waive d Testing in the ED is performed under the ED CLIA certificate #[id number]. Result Comment: aall [id number] Performed By: #### L [id number] ####[facility] ([facility])[address] [place] [address] BASIC METABOLIC PANELon 02-0 8-2025 Anion gap [Moles/Vol] 8 mmol/L Normal 7-20 [facility] Comment on above: Performed By: #### L [id number] ####[facility] ([facility] [place] [address] Calcium [Mass/Vol] 9.8 mg/dL Normal 8.6-10.3 [facility] Comment on above: Performed By: #### L [id number] ####[facility] ([facility] [place] [address] Chloride [Moles/Vol] 96 mmol/L Low 98-107 [facility] Comment on above: Performed By: #### L [id number] ####[facility] ([facility] [place] [address] CO2 [Moles/Vol] 37 mmol/L High 21-31 [facility] Comment on above: Performed By: #### L [id number] ####[facility] ([facility] [place] [address] Creatinine [Mass/Vol] 0.82 mg/dL Normal 0.70-1.30 [facility] Comment on above: Performed By: #### L [id number] ####[facility] ([facility] [place] [address] GLOMERULAR FILTRATION RATE ML/MIN/1.73 SQ M.PREDICTED 97.5 mL/min/1.73m*2 Normal >60.0 [facility] Comment on above: Result Comment: The [facility]???s estimated glomerular filtration rate (eGFR) will [...] of individuals. Performed By: #### L [id number] ####[facility] ([facility] [place] [address] Glucose [Mass/Vol] 183 mg/dL High 70-100 [facility] Comment on above: Performed By: #### L [id number] ####[facility] ([facility] [place] [address] Potassium [Moles/Vol] 3.7 mmol/L Normal 3.5-5.1 [facility] Comment on above: Performed By: #### L [id number] ####[facility] ([facility] [place] [address] Sodium [Moles/Vol] 137 mmol/L Normal 136-145 [facility] Comment on above: Performed By: #### L [id number] ####[facility] ([facility])[address] [place] [address] Urea nitrogen [Mass/Vol] 17 mg/dL Normal 7-25 [facility] Comment on above: Performed By: #### L [id number] ####[facility] ([facility])[address] [place] [address] UREA NITROGEN/CREATININE (MASS RATIO) IN SER/PLAS 20.7 Normal [facility] Comment on above: Performed By: #### L [id number] ####[facility] ([facility] [place] [address] CBC WITH AUTO DIFFERENTIALon 08-28-2024 Basophils (Bld) [#/Vol] 0.09 10*3/uL Normal 0.00-0.20 [facility] Comment on above: Performed By: #### L [id number] ####[facility] ([facility] [place] [address] Basophils/100 WBC (Bld) 0.9 % Normal 0.0-1.0 [facility] Comment on above: Performed By: #### L [id number] ####[facility] ([facility] [place] [address] Eosinophils (Bld) [#/Vol] 0.40 10*3/uL Normal 0.00-0.50 [facility] Comment on above: Performed By: #### L [id number] ####[facility] (BEAKER)[address] [place] [address] Eosinophils/100 WBC (Bld) 4.2 % Normal 0.0-6.0 [facility] Comment on above: Performed By: #### L [id number] ####[facility] (BEAKER)[address] [place] [address] Erythrocyte distribution width (RBC) [Ratio] 14.8 % Normal 11.5-15.0 [facility] Comment on above: Performed By: #### L [id number] ####[facility] (BEAKER)[address] [place] [address] ERYTHROCYTE MEAN CORPUSCULAR HEMOGLOBIN CONCENTRATION (G/DL) BY AUTOMATED 30.3 g/dL Low 32.0-35.0 [facility] Comment on above: Performed By: #### L [id number] ####[facility] (BEAKER)[address] [place] [address] Hematocrit (Bld) [Volume fraction] 50.9 % Normal 39.0-55.0 [facility] Comment on above: Performed By: #### L [id number] ####[facility] (BEAKER)[address] [place] [address] Hemoglobin (Bld) [Mass/Vol] 15.4 g/dL Normal 13.0-17.0 [facility] Comment on above: Performed By: #### L [id number] ####[facility] (BEAKER)[address] [place] [address] Immature granulocytes (Bld) [#/Vol] 0.06 10*3/uL Normal 0.00-0.20 [facility] Comment on above: Performed By: #### L [id number] ####[facility] (BEAKER)[address] [place] [address] Immature granulocytes/100 WBC (Bld) 0.6 % Normal 0.0-1.0 [facility] Comment on above: Performed By: #### L [id number] ####[facility] ([facility])[address] [place] [address] Lymphocytes (Bld) [#/Vol] 1.68 10*3/uL Normal 1.20-4.00 [facility] Comment on above: Performed By: #### L [id number] ####[facility] ([facility])[address] [place] [address] Lymphocytes/100 WBC (Bld) 17.6 % Low 20.0-45.0 [facility] Comment on above: Performed By: #### L [id number] ####[facility] ([facility])[address] [place] [address] MCH (RBC) [Entitic mass] 29.2 pg Normal 27.0-33.0 [facility] Comment on above: Performed By: #### L [id number] ####[facility] ([facility])[address] [place] [address] MCV (RBC) [Entitic vol] 96.6 fL Normal 82.0-98.0 [facility] Comment on above: Performed By: #### L [id number] ####[facility] ([facility])[address] [place] [address] Monocytes (Bld) [#/Vol] 0.99 10*3/uL Normal 0.10-1.00 [facility] Comment on above: Performed By: #### L [id number] ####[facility] ([facility])[address] [place] [address] Monocytes/100 WBC (Bld) 10.4 % Normal 5.0-12.0 [facility] Comment on above: Performed By: #### L [id number] ####[facility] ([facility])[address] [place] [address] Neutrophils (Bld) [#/Vol] 6.33 10*3/uL Normal 1.60-7.60 [facility] Comment on above: Performed By: #### L [id number] ####[facility] ([facility])[address] [place] [address] Neutrophils/100 WBC (Bld) 66.3 % Normal 40.0-72.0 [facility] Comment on above: Performed By: #### L [id number] ####[facility] ([facility])[address] [address] NRBC (PER 100 WBCS) BY AUTOMATED COUNT 0.0 % Normal 0 [facility] Comment on above: Performed By: #### L [id number] ####[facility] ([facility])[address] [place] [address] PLATELETS (10*3/UL) IN BLOOD AUTOMATED COUNT 252 10*3/uL Normal 150-400 [facility] Comment on above: Performed By: #### L [id number] ####[facility] ([facility])[address] [place] [address] RBC (Bld) [#/Vol] 5.27 10*6/uL Normal 4.20-5.70 [facility] Comment on above: Performed By: #### L [id number] ####[facility] ([facility])[address] [place] [address] WBC (Bld) [#/Vol] 9.55 10*3/uL Normal 4.00-10.60 [facility] Comment on above: Performed By: #### L [id number] ####[facility] ([facility])[address] [place] [address] MAGNESIUMon 08-28-2024 Magnesium [Mass/Vol] 1.8 mg/dL Low 1.9-2.7 [facility] Comment on above: Performed By: #### L [id number] ####[facility] ([facility])[address] [address] NURSNOTEon 08-28-2024 NURSNOTE Normal [facility] POCT GLUCOSE METER UNSOLICIT ED RESULTSon 08-28-2024 Glucose [Mass/Vol] 258 mg/dL High 70-105 [facility] Comment on above: Order Comment: Waive d Testing in the ED is performed under the ED CLIA certificate #[id number]. Result Comment: [email or web address] Performed By: #### L [id number] ####[facility] ([facility])[address] [place] [address] Glucose [Mass/Vol] 177 mg/dL High 70-105 [facility] Comment on above: Order Comment: Waive d Testing in the ED is performed under the ED CLIA certificate #[id number]. Result Comment: aall [id number] Performed By: #### L [id number] ####[facility] ([facility])[address] [place] [address] Glucose [Mass/Vol] 242 mg/dL High 70-105 [facility] Comment on above: Order Comment: Waive d Testing in the ED is performed under the ED CLIA certificate #[id number]. Result Comment: aall [id number] Performed By: #### L [id number] ####[facility] [place] [address] Glucose [Mass/Vol] 200 mg/dL High 70-105 [facility] Comment on above: Order Comment: Waive d Testing in the ED is performed under the ED CLIA certificate #[id number]. Result Comment: aall [email or web address] Performed By: #### L [id number] ####[facility] ([facility])[address] [place] [address] 30on 08-27-2024 30 Normal [facility] BASIC METABOLIC PANELon -0 Anion gap [Moles/Vol] 6 mmol/L Low 7-20 [facility] Comment on above: Performed By: #### L [id number] ####[facility] ([facility])[address] [place] [address] Calcium [Mass/Vol] 9.8 mg/dL Normal 8.6-10.3 [facility] Comment on above: Performed By: #### L [id number] ####[facility] ([facility] [place] [address] Chloride [Moles/Vol] 97 mmol/L Low 98-107 [facility] Comment on above: Performed By: #### L [id number] ####[facility] ([facility])[address] [place] [address] CO2 [Moles/Vol] 41 mmol/L Critically high 21-31 [facility] Comment on above: Performed By: #### L [id number] ####[facility] ([facility])[address] [place] [address] Creatinine [Mass/Vol] 0.81 mg/dL Normal 0.70-1.30 [facility] Comment on above: Performed By: #### L [id number] ####[facility] ([facility])[address] [place] [address] GLOMERULAR FILTRATION RATE ML/MIN/1.73 SQ M.PREDICTED 97.8 mL/min/1.73m*2 Normal >60.0 [facility] Comment on above: Result Comment: The [facility]???s estimated glomerular filtration rate (eGFR) will [...] of individuals. Performed By: #### L [id number] ####[facility] ([facility] [place] [address] Glucose [Mass/Vol] 187 mg/dL High 70-100 [facility] Comment on above: Performed By: #### L [id number] ####[facility] ([facility] [place] [address] Potassium [Moles/Vol] 3.5 mmol/L Normal 3.5-5.1 [facility] Comment on above: Performed By: #### L [id number] ####[facility] ([facility])[address] [facility] [place] [address] Sodium [Moles/Vol] 140 mmol/L Normal 136-145 [facility] Comment on above: Performed By: #### L [id number] ####[facility] ([facility])[address] [place] [address] Urea nitrogen [Mass/Vol] 16 mg/dL Normal 7-25 [facility] Comment on above: Performed By: #### L [id number] ####[facility] ([facility])[address] [place] [address] UREA NITROGEN/CREATININE (MASS RATIO) IN SER/PLAS 19.8 Normal [facility] Comment on above: Performed By: #### L [id number] ####[facility] ([facility])[address] [place] [address] CBC WITH AUTO DIFFERENTIALon 08-27-2024 Basophils (Bld) [#/Vol] 0.06 10*3/uL Normal 0.00-0.20 [facility] Comment on above: Performed By: #### L [id number] ####[facility] ([facility])[address] [place] [address] Basophils/100 WBC (Bld) 0.7 % Normal 0.0-1.0 [facility] Comment on above: Performed By: #### L [id number] ####[facility] ([facility] [place] [address] Eosinophils (Bld) [#/Vol] 0.38 10*3/uL Normal 0.00-0.50 [facility] Comment on above: Performed By: #### L [id number] ####[facility] ([facility] [place] [address] Eosinophils/100 WBC (Bld) 4.7 % Normal 0.0-6.0 [facility] Comment on above: Performed By: #### L [id number] ####[facility] ([facility])[address] [place] [address] Erythrocyte distribution width (RBC) [Ratio] 14.6 % Normal 11.5-15.0 [facility] Comment on above: Performed By: #### L [id number] ####[facility] ([facility] [place] [address] ERYTHROCYTE MEAN CORPUSCULAR HEMOGLOBIN CONCENTRATION (G/DL) BY AUTOMATED 29.7 g/dL Low 32.0-35.0 [facility] Comment on above: Performed By: #### L [id number] ####[facility] ([facility])[address] [place] [address] Hematocrit (Bld) [Volume fraction] 49.5 % Normal 39.0-55.0 [facility] Comment on above: Performed By: #### L [id number] ####[facility] ([facility])[address] [place] [address] Hemoglobin (Bld) [Mass/Vol] 14.7 g/dL Normal 13.0-17.0 [facility] Comment on above: Performed By: #### L [id number] ####[facility] ([facility])[address] [place] [address] Immature granulocytes (Bld) [#/Vol] 0.04 10*3/uL Normal 0.00-0.20 [facility] Comment on above: Performed By: #### L [id number] ####[facility] ([facility] [place] [address] Immature granulocytes/100 WBC (Bld) 0.5 % Normal 0.0-1.0 [facility] Comment on above: Performed By: #### L [id number] ####[facility] ([facility])[address] [place] [address] Lymphocytes (Bld) [#/Vol] 1.42 10*3/uL Normal 1.20-4.00 [facility] Comment on above: Performed By: #### L [id number] ####[facility] ([facility] [place] [address] Lymphocytes/100 WBC (Bld) 17.7 % Low 20.0-45.0 [facility] Comment on above: Performed By: #### L [id number] ####[facility] ([facility] [place] [address] MCH (RBC) [Entitic mass] 28.9 pg Normal 27.0-33.0 [facility] Comment on above: Performed By: #### L [id number] ####[facility] ([facility] [place] [address] MCV (RBC) [Entitic vol] 97.4 fL Normal 82.0-98.0 [facility] Comment on above: Performed By: #### L [id number] ####[facility] ([facility])[address] [place] [address] Monocytes (Bld) [#/Vol] 0.92 10*3/uL Normal 0.10-1.00 [facility] Comment on above: Performed By: #### L [id number] ####[facility] ([facility])[address] [place] [address] Monocytes/100 WBC (Bld) 11.5 % Normal 5.0-12.0 [facility] Comment on above: Performed By: #### L [id number] ####[facility] ([facility])[address] [place] [address] Neutrophils (Bld) [#/Vol] 5.19 10*3/uL Normal 1.60-7.60 [facility] Comment on above: Performed By: #### L [id number] ####[facility] ([facility] [place] [address] Neutrophils/100 WBC (Bld) 64.9 % Normal 40.0-72.0 [facility] Comment on above: Performed By: #### L [id number] ####[facility] ([facility] [place] [address] NRBC (PER 100 WBCS) BY AUTOMATED COUNT 0.0 % Normal 0 [facility] Comment on above: Performed By: #### L [id number] ####[facility] ([facility])[address] [place] [address] PLATELETS (10*3/UL) IN BLOOD AUTOMATED COUNT 209 10*3/uL Normal 150-400 [facility] Comment on above: Performed By: #### L [id number] ####[facility] ([facility])[address] [place] [address] RBC (Bld) [#/Vol] 5.08 10*6/uL Normal 4.20-5.70 [facility] Comment on above: Performed By: #### L [id number] ####[facility] ([facility])[address] [place] [address] WBC (Bld) [#/Vol] 8.01 10*3/uL Normal 4.00-10.60 [facility] Comment on above: Performed By: #### L [id number] ####[facility] ([facility])[address] [place] [address] MAGNESIUMon 08-27-2024 Magnesium [Mass/Vol] 1.6 mg/dL Low 1.9-2.7 [facility] Comment on above: Performed By: #### L [id number] ####[facility] ([facility])[address] [place] [address] POCT GLUCOSE METER UNSOLICIT ED RESULTSon 08-27-2024 Glucose [Mass/Vol] 144 mg/dL High 70-105 [facility] Comment on above: Order Comment: Waive d Testing in the ED is performed under the ED CLIA certificate #[id number]. Result Comment: [email or web address] Performed By: #### L [id number] ####[facility] ([facility])[address] [place] [address] Glucose [Mass/Vol] 204 mg/dL High 70-105 [facility] Comment on above: Order Comment: Waive d Testing in the ED is performed under the ED CLIA certificate #[id number]. Result Comment: [email or web address] [email or web address] Performed By: #### L [id number] ####[facility] ([facility])[address] [place] [address] Glucose [Mass/Vol] 230 mg/dL High 70-105 [facility] Comment on above: Order Comment: Waive d Testing in the ED is performed under the ED CLIA certificate #[id number]. Result Comment: [email or web address] Performed By: #### L [id number] ####[facility] ([facility] [place] [address] Glucose [Mass/Vol] 174 mg/dL High 70-105 [facility] Comment on above: Order Comment: Waive d Testing in the ED is performed under the ED CLIA certificate #[id number]. Result Comment: [email or web address] [email or web address] Performed By: #### L [id number] ####[facility] ([facility])[address] [place] [address] BASIC METABOLIC PANELon 02-0 Anion gap [Moles/Vol] 9 mmol/L Normal 7-20 [facility] Comment on above: Performed By: #### L [id number] ####[facility] ([facility])[address] [place] [address] Calcium [Mass/Vol] 9.4 mg/dL Normal 8.6-10.3 [facility] Comment on above: Performed By: #### L [id number] ####[facility] ([facility] [place] [address] Chloride [Moles/Vol] 100 mmol/L Normal 98-107 [facility] Comment on above: Performed By: #### L [id number] ####[facility] ([facility])[address] [place] [address] CO2 [Moles/Vol] 36 mmol/L High 21-31 [facility] Comment on above: Performed By: #### L [id number] ####[facility] ([facility])[address] [place] [address] Creatinine [Mass/Vol] 0.78 mg/dL Normal 0.70-1.30 [facility] Comment on above: Performed By: #### L [id number] ####[facility] ([facility])[address] [place] [address] GLOMERULAR FILTRATION RATE ML/MIN/1.73 SQ M.PREDICTED 99.0 mL/min/1.73m*2 Normal >60.0 [facility] Comment on above: Result Comment: [facility]???s estimated glomerular filtration rate (eGFR) will [...] of individuals. Performed By: #### L [id number] ####[facility] ([facility])[address] [place] [address] Glucose [Mass/Vol] 156 mg/dL High 70-100 [facility] Comment on above: Performed By: #### L [id number] ####[facility] ([facility])[address] [place] [address] Potassium [Moles/Vol] 3.5 mmol/L Normal 3.5-5.1 [facility] Comment on above: Performed By: #### L [id number] ####[facility] ([facility])[address] [place] [address] Sodium [Moles/Vol] 141 mmol/L Normal 136-145 [facility] Comment on above: Performed By: #### L [id number] ####[facility] ([facility])[address] [place] [address] Urea nitrogen [Mass/Vol] 17 mg/dL Normal 7-25 [facility] Comment on above: Performed By: #### L [id number] ####[facility] ([facility] [place] [address] UREA NITROGEN/CREATININE (MASS RATIO) IN SER/PLAS 21.8 Normal [facility] Comment on above: Performed By: #### L [id number] ####[facility] ([facility] [place] [address] CBC WITH AUTO DIFFERENTIALon 08-26-2024 Basophils (Bld) [#/Vol] 0.06 10*3/uL Normal 0.00-0.20 [facility] Comment on above: Performed By: #### L [id number] ####[facility] ([facility])[address] [place] [address] Basophils/100 WBC (Bld) 0.8 % Normal 0.0-1.0 [facility] Comment on above: Performed By: #### L [id number] ####[facility] ([facility])[address] [place] [address] Eosinophils (Bld) [#/Vol] 0.39 10*3/uL Normal 0.00-0.50 [facility] Comment on above: Performed By: #### L [id number] ####[facility] ([facility])[address] [place] [address] Eosinophils/100 WBC (Bld) 5.4 % Normal 0.0-6.0 [facility] Comment on above: Performed By: #### L [id number] ####[facility] ([facility])[address] [place] [address] Erythrocyte distribution width (RBC) [Ratio] 14.7 % Normal 11.5-15.0 [facility] Comment on above: Performed By: #### L [id number] ####[facility] ([facility] [place] [address] ERYTHROCYTE MEAN CORPUSCULAR HEMOGLOBIN CONCENTRATION (G/DL) BY AUTOMATED 30.4 g/dL Low 32.0-35.0 [facility] Comment on above: Performed By: #### L [id number] ####[facility] ([facility])[address] [place] [address] Hematocrit (Bld) [Volume fraction] 49.0 % Normal 39.0-55.0 [facility] Comment on above: Performed By: #### L [id number] ####[facility] ([facility])[address] [place] [address] Hemoglobin (Bld) [Mass/Vol] 14.9 g/dL Normal 13.0-17.0 [facility] Comment on above: Performed By: #### L [id number] ####[facility] ([facility])[address] [place] [address] Immature granulocytes (Bld) [#/Vol] 0.03 10*3/uL Normal 0.00-0.20 [facility] Comment on above: Performed By: #### L [id number] ####[facility] ([facility])[address] [place] [address] Immature granulocytes/100 WBC (Bld) 0.4 % Normal 0.0-1.0 [facility] Comment on above: Performed By: #### L [id number] ####[facility] ([facility])[address] [place] [address] Lymphocytes (Bld) [#/Vol] 1.21 10*3/uL Normal 1.20-4.00 [facility] Comment on above: Performed By: #### L [id number] ####[facility] ([facility])[address] [place] [address] Lymphocytes/100 WBC (Bld) 16.7 % Low 20.0-45.0 [facility] Comment on above: Performed By: #### L [id number] ####[facility] ([facility])[address] [place] [address] MCH (RBC) [Entitic mass] 29.2 pg Normal 27.0-33.0 [facility] Comment on above: Performed By: #### L [id number] ####[facility] ([facility])[address] [place] [address] MCV (RBC) [Entitic vol] 96.1 fL Normal 82.0-98.0 [facility] Comment on above: Performed By: #### L [id number] ####[facility] ([facility])[address] [place] [address] Monocytes (Bld) [#/Vol] 0.86 10*3/uL Normal 0.10-1.00 [facility] Comment on above: Performed By: #### L [id number] ####[facility] ([facility])[address] [place] [address] Monocytes/100 WBC (Bld) 11.9 % Normal 5.0-12.0 [facility] Comment on above: Performed By: #### L [id number] ####[facility] ([facility])[address] [place] [address] Neutrophils (Bld) [#/Vol] 4.70 10*3/uL Normal 1.60-7.60 [facility] Comment on above: Performed By: #### L [id number] ####[facility] ([facility] [place] [address] Neutrophils/100 WBC (Bld) 64.8 % Normal 40.0-72.0 [facility] Comment on above: Performed By: #### L [id number] ####[facility] ([facility])[address] [place] [address] NRBC (PER 100 WBCS) BY AUTOMATED COUNT 0.0 % Normal 0 [facility] Comment on above: Performed By: #### L [id number] ####[facility] ([facility])[address] [place] [address] PLATELETS (10*3/UL) IN BLOOD AUTOMATED COUNT 208 10*3/uL Normal 150-400 [facility] Comment on above: Performed By: #### L [id number] ####[facility] ([facility])[address] [place] [address] RBC (Bld) [#/Vol] 5.10 10*6/uL Normal 4.20-5.70 [facility] Comment on above: Performed By: #### L [id number] ####[facility] ([facility])[address] [place] [address] WBC (Bld) [#/Vol] 7.25 10*3/uL Normal 4.00-10.60 [facility] Comment on above: Performed By: #### L [id number] ####[facility] ([facility])[address] [place] [address] MAGNESIUMon 08-26-2024 Magnesium [Mass/Vol] 1.8 mg/dL Low 1.9-2.7 [facility] Comment on above: Performed By: #### L [id number] ####[facility] ([facility])[address] [place] [address] POCT GLUCOSE METER UNSOLICIT ED RESULTSon 08-26-2024 Glucose [Mass/Vol] 246 mg/dL High 70-105 [facility] Comment on above: Order Comment: Waive d Testing in the ED is performed under the ED CLIA certificate #[id number]. Result Comment: [email or web address] Performed By: #### L [id number] ####[facility] ([facility])[address] [place] [address] Glucose [Mass/Vol] 204 mg/dL High 70-105 [facility] Comment on above: Order Comment: Waive d Testing in the ED is performed under the ED CLIA certificate #[id number]. Result Comment: [email or web address] Performed By: #### L [id number] ####[facility] ([facility])[address] [place] [address] Glucose [Mass/Vol] 219 mg/dL High 70-105 [facility] Comment on above: Order Comment: Waive d Testing in the ED is performed under the ED CLIA certificate #[id number]. Result Comment: [email or web address] Performed By: #### L [id number] ####[facility] ([facility])[address] [place] [address] Glucose [Mass/Vol] 163 mg/dL High 70-105 [facility] Comment on above: Order Comment: Waive d Testing in the ED is performed under the ED CLIA certificate #[id number]. Result Comment: [email or web address] Performed By: #### L [id number] ####[facility] [place] [address] 30on 08-25-2024 30 Normal [facility] BASIC METABOLIC PANELon Anion gap [Moles/Vol] 10 mmol/L Normal 7-20 [facility] Comment on above: Performed By: #### L [id number] ####[facility] ([facility])[address] [place] [address] Calcium [Mass/Vol] 9.5 mg/dL Normal 8.6-10.3 [facility] Comment on above: Performed By: #### L [id number] ####[facility] ([facility])[address] [place] [address] Chloride [Moles/Vol] 97 mmol/L Low 98-107 [facility] Comment on above: Performed By: #### L [id number] ####[facility] ([facility])[address] [place] [address] CO2 [Moles/Vol] 34 mmol/L High 21-31 [facility] Comment on above: Performed By: #### L [id number] ####[facility] [place] [place] [address] Creatinine [Mass/Vol] 0.87 mg/dL Normal 0.70-1.30 [facility] Comment on above: Performed By: #### L [id number] ####[facility] ([facility])[address] [place] [address] GLOMERULAR FILTRATION RATE ML/MIN/1.73 SQ M.PREDICTED 95.8 mL/min/1.73m*2 Normal >60.0 [facility] Comment on above: Result Comment: The [facility]???s estimated glomerular filtration rate (eGFR) will [...] of individuals. Performed By: #### L [id number] ####[facility] ([facility])[address] [place] [address] Glucose [Mass/Vol] 178 mg/dL High 70-100 [facility] Comment on above: Performed By: #### L [id number] ####[facility] ([facility])[address] [place] [address] Potassium [Moles/Vol] 3.5 mmol/L Normal 3.5-5.1 [facility] Comment on above: Performed By: #### L [id number] ####[facility] ([facility])[address] [place] [address] Sodium [Moles/Vol] 137 mmol/L Normal 136-145 [facility] Comment on above: Performed By: #### L [id number] ####[facility] ([facility])[address] [place] [address] Urea nitrogen [Mass/Vol] 20 mg/dL Normal 7-25 [facility] Comment on above: Performed By: #### L [id number] ####[facility] ([facility])[address] [place] [address] UREA NITROGEN/CREATININE (MASS RATIO) IN SER/PLAS 23.0 Normal [facility] Comment on above: Performed By: #### L [id number] ####[facility] ([facility])[address] [place] [address] CBC WITH AUTO DIFFERENTIALon 08-25-2024 Basophils (Bld) [#/Vol] 0.04 10*3/uL Normal 0.00-0.20 [facility] Comment on above: Performed By: #### L [id number] ####[facility] ([facility])[address] [place] [address] Basophils/100 WBC (Bld) 0.6 % Normal 0.0-1.0 [facility] Comment on above: Performed By: #### L [id number] ####[facility] ([facility])[address] [place] [address] Eosinophils (Bld) [#/Vol] 0.22 10*3/uL Normal 0.00-0.50 [facility] Comment on above: Performed By: #### L [id number] ####[facility] ([facility])[address] [place] [address] Eosinophils/100 WBC (Bld) 3.1 % Normal 0.0-6.0 [facility] Comment on above: Performed By: #### L [id number] ####[facility] ([facility])[address] [place] [address] Erythrocyte distribution width (RBC) [Ratio] 14.6 % Normal 11.5-15.0 [facility] Comment on above: Performed By: #### L [id number] ####[facility] ([facility])[address] [place] [address] ERYTHROCYTE MEAN CORPUSCULAR HEMOGLOBIN CONCENTRATION (G/DL) BY AUTOMATED 30.6 g/dL Low 32.0-35.0 [facility] Comment on above: Performed By: #### L [id number] ####[facility] ([facility])[address] [place] [address] Hematocrit (Bld) [Volume fraction] 49.4 % Normal 39.0-55.0 [facility] Comment on above: Performed By: #### L [id number] ####[facility] ([facility])[address] [place] [address] Hemoglobin (Bld) [Mass/Vol] 15.1 g/dL Normal 13.0-17.0 [facility] Comment on above: Performed By: #### L [id number] ####[facility] ([facility])[address] [place] [address] Immature granulocytes (Bld) [#/Vol] 0.04 10*3/uL Normal 0.00-0.20 [facility] Comment on above: Performed By: #### L [id number] ####[facility] ([facility])[address] [place] [address] Immature granulocytes/100 WBC (Bld) 0.6 % Normal 0.0-1.0 [facility] Comment on above: Performed By: #### L [id number] ####[facility] ([facility])[address] [place] [address] Lymphocytes (Bld) [#/Vol] 1.08 10*3/uL Low 1.20-4.00 [facility] Comment on above: Performed By: #### L [id number] ####[facility] ([facility])[address] [place] [address] Lymphocytes/100 WBC (Bld) 15.1 % Low 20.0-45.0 [facility] Comment on above: Performed By: #### L [id number] ####[facility] ([facility])[address] [place] [address] MCH (RBC) [Entitic mass] 28.9 pg Normal 27.0-33.0 [facility] Comment on above: Performed By: #### L [id number] ####[facility] ([facility])[address] [place] [address] MCV (RBC) [Entitic vol] 94.6 fL Normal 82.0-98.0 [facility] Comment on above: Performed By: #### L [id number] ####[facility] ([facility])[address] [place] [address] Monocytes (Bld) [#/Vol] 0.94 10*3/uL Normal 0.10-1.00 [facility] Comment on above: Performed By: #### L [id number] ####[facility] ([facility])[address] [place] [address] Monocytes/100 WBC (Bld) 13.1 % High 5.0-12.0 [facility] Comment on above: Performed By: #### L [id number] ####[facility] [place] [address] Neutrophils (Bld) [#/Vol] 4.85 10*3/uL Normal 1.60-7.60 [facility] Comment on above: Performed By: #### L [id number] ####[facility] ([facility])[address] [place] [address] Neutrophils/100 WBC (Bld) 67.5 % Normal 40.0-72.0 [facility] Comment on above: Performed By: #### L [id number] ####[facility] ([facility])[address] [place] [address] NRBC (PER 100 WBCS) BY AUTOMATED COUNT 0.0 % Normal 0 [facility] Comment on above: Performed By: #### L [id number] ####[facility] ([facility])[address] [place] [address] PLATELETS (10*3/UL) IN BLOOD AUTOMATED COUNT 200 10*3/uL Normal 150-400 [facility] Comment on above: Performed By: #### L [id number] ####[facility] ([facility])[address] [place] [address] RBC (Bld) [#/Vol] 5.22 10*6/uL Normal 4.20-5.70 [facility] Comment on above: Performed By: #### L [id number] ####[facility] (BEAK[facility])[address] [place], [place] [address] WBC (Bld) [#/Vol] 7.17 10*3/uL Normal 4.00-10.60 [facility] Comment on above: Performed By: #### L [id number] ####[facility] ([facility])[address] [place] [address] MAGNESIUMon 02-05-2025 Magnesium [Mass/Vol] 1.6 mg/dL Low 1.9-2.7 [facility] Comment on above: Performed By: #### L [id number] ####[facility] ([facility])[address] [place] [address] POCT GLUCOSE METER UNSOLICIT ED RESULTSon 08-25-2024 Glucose [Mass/Vol] 154 mg/dL High 70-105 [facility] Comment on above: Order Comment: Waive d Testing in the ED is performed under the ED CLIA certificate #[id number]. Result Comment: [email or web address] Performed By: #### L [id number] ####[facility] ([facility])[address] [facility] [place] [address] Glucose [Mass/Vol] 196 mg/dL High 70-105 [facility] Comment on above: Order Comment: Waive d Testing in the ED is performed under the ED CLIA certificate #[id number]. Result Comment: [email or web address] Performed By: #### L [id number] ####[facility] ([facility])[address] [place] [address] Glucose [Mass/Vol] 313 mg/dL High 70-105 [facility] Comment on above: Order Comment: Waive d Testing in the ED is performed under the ED CLIA certificate #[id number]. Result Comment: [email or web address] [email or web address] Performed By: #### L [id number] ####[facility] ([facility])[address] [place] [address] Glucose [Mass/Vol] 164 mg/dL High 70-105 [facility] Comment on above: Order Comment: Waive d Testing in the ED is performed under the ED CLIA certificate #[id number]. Result Comment: [email or web address] Performed By: #### L [id number] ####[facility] ([facility])[address] [place] [address] 30on 08-24-2024 30 Normal [facility] ANTI-XA (HEPARIN LEVEL)on HEPARIN UNFRACTIONATED (U/ML) IN PPP BY CHROMOGENIC METHOD 0.21 IU/mL Low 0.3-0.7 [facility] Comment on above: Result Comment: Tyler roxaban and Apixaban will interfere with the anti Xa assay used to monitor UFH and LMWH. Performed By: #### L [id number] ####[facility] ([facility])[address] [place] [address] B-TYPE NATRIURETIC PEPTIDEon 08-24-2024 Natriuretic peptide B (Bld) [Mass/Vol] 143 pg/mL High 0-100 [facility] Comment on above: Performed By: #### L [id number] ####[facility] ([facility])[address] [place] [address] BASIC METABOLIC PANELon Anion gap [Moles/Vol] 11 mmol/L Normal 7-20 [facility] Comment on above: Performed By: #### L [id number] ####[facility] ([facility])[address] [place] [address] Calcium [Mass/Vol] 9.7 mg/dL Normal 8.6-10.3 [facility] Comment on above: Performed By: #### L [id number] ####[facility] ([facility])[address] [place] [address] Chloride [Moles/Vol] 98 mmol/L Normal 98-107 [facility] Comment on above: Performed By: #### L [id number] ####[facility] [place] [address] CO2 [Moles/Vol] 33 mmol/L High 21-31 [facility] Comment on above: Performed By: #### L [id number] ####[facility] ([facility] [place] [address] Creatinine [Mass/Vol] 0.93 mg/dL Normal 0.70-1.30 [facility] Comment on above: Performed By: #### L [id number] ####[facility] ([facility] [place] [address] GLOMERULAR FILTRATION RATE ML/MIN/1.73 SQ M.PREDICTED 91.1 mL/min/1.73m*2 Normal >60.0 [facility] Comment on above: Result Comment: The [facility]???s estimated glomerular filtration rate (eGFR) will [...] of individuals. Performed By: #### L [id number] ####[facility] ([facility])[address] [place] [address] Glucose [Mass/Vol] 166 mg/dL High 70-100 [facility] Comment on above: Performed By: #### L [id number] ####[facility] ([facility])[address] [place] [address] Potassium [Moles/Vol] 3.8 mmol/L Normal 3.5-5.1 [facility] Comment on above: Performed By: #### L [id number] ####[facility] ([facility])[address] [place] [address] Sodium [Moles/Vol] 138 mmol/L Normal 136-145 [facility] Comment on above: Performed By: #### L [id number] ####[facility] ([facility])[address] [place] [address] Urea nitrogen [Mass/Vol] 23 mg/dL Normal 7-25 [facility] Comment on above: Performed By: #### L [id number] ####[facility] ([facility])[address] [place] [address] UREA NITROGEN/CREATININE (MASS RATIO) IN SER/PLAS 24.7 Normal [facility] Comment on above: Performed By: #### L [id number] ####[facility] ([facility] [place] [address] Anion gap [Moles/Vol] 10 mmol/L Normal 7-20 [facility] Comment on above: Performed By: #### L [id number] ####[facility] ([facility])[address] [place] [address] Calcium [Mass/Vol] 9.4 mg/dL Normal 8.6-10.3 [facility] Comment on above: Performed By: #### L [id number] ####[facility] ([facility])[address] [place] [address] Chloride [Moles/Vol] 98 mmol/L Normal 98-107 [facility] Comment on above: Performed By: #### L [id number] ####[facility] ([facility])[address] [place] [address] CO2 [Moles/Vol] 33 mmol/L High 21-31 [facility] Comment on above: Performed By: #### L [id number] ####[facility] ([facility] [place] [address] Creatinine [Mass/Vol] 0.88 mg/dL Normal 0.70-1.30 [facility] Comment on above: Performed By: #### L [id number] ####[facility] ([facility] [place] [address] GLOMERULAR FILTRATION RATE ML/MIN/1.73 SQ M.PREDICTED 95.4 mL/min/1.73m*2 Normal >60.0 [facility] Comment on above: Result Comment: [facility]???s estimated glomerular filtration rate (eGFR) will [...] of individuals. Performed By: #### L [id number] ####[facility] ([facility])[address] [place] [address] Glucose [Mass/Vol] 132 mg/dL High 70-100 [facility] Comment on above: Performed By: #### L [id number] ####[facility] ([facility])[address] [place] [address] Potassium [Moles/Vol] 2.9 mmol/L Invalid Interpretation Code 3.5-5.1 [facility] Comment on above: Performed By: #### L [id number] ####[facility] ([facility])[address] [place] [address] Sodium [Moles/Vol] 138 mmol/L Normal 136-145 [facility] Comment on above: Performed By: #### L [id number] ####[facility] ([facility])[address] [place] [address] Urea nitrogen [Mass/Vol] 24 mg/dL Normal 7-25 [facility] Comment on above: Performed By: #### L [id number] ####[facility] ([facility])[address] [place] [address] UREA NITROGEN/CREATININE (MASS RATIO) IN SER/PLAS 27.3 Normal [facility] Comment on above: Performed By: #### L [id number] ####[facility] ([facility])[address] [place] [address] CBC WITH AUTO DIFFERENTIALon 08-24-2024 Basophils (Bld) [#/Vol] 0.06 10*3/uL Normal 0.00-0.20 [facility] Comment on above: Performed By: #### L [id number] ####[facility] ([facility])[address] [place] [address] Basophils/100 WBC (Bld) 0.8 % Normal 0.0-1.0 [facility] Comment on above: Performed By: #### L [id number] ####[facility] ([facility])[address] [place] [address] Eosinophils (Bld) [#/Vol] 0.46 10*3/uL Normal 0.00-0.50 [facility] Comment on above: Performed By: #### L [id number] ####[facility] (BEAKER)[address] [place] [address] Eosinophils/100 WBC (Bld) 5.9 % Normal 0.0-6.0 [facility] Comment on above: Performed By: #### L [id number] ####[facility] (BEAKER)[address] [place] [address] Erythrocyte distribution width (RBC) [Ratio] 14.7 % Normal 11.5-15.0 [facility] Comment on above: Performed By: #### L [id number] ####[facility] ([facility]ER)[address] [place] [address] ERYTHROCYTE MEAN CORPUSCULAR HEMOGLOBIN CONCENTRATION (G/DL) BY AUTOMATED 31.3 g/dL Low 32.0-35.0 [facility] Comment on above: Performed By: #### L [id number] ####[facility] ([facility]AK[facility])[address] [place] [address] Hematocrit (Bld) [Volume fraction] 50.8 % Normal 39.0-55.0 [facility] Comment on above: Performed By: #### L [id number] ####[facility] ([facility])[address] [place] [address] Hemoglobin (Bld) [Mass/Vol] 15.9 g/dL Normal 13.0-17.0 [facility] Comment on above: Performed By: #### L [id number] ####[facility] ([facility])[address] [place] [address] Immature granulocytes (Bld) [#/Vol] 0.04 10*3/uL Normal 0.00-0.20 [facility] Comment on above: Performed By: #### L [id number] ####[facility] (BEAKER)[address] [place] [address] Immature granulocytes/100 WBC (Bld) 0.5 % Normal 0.0-1.0 [facility] Comment on above: Performed By: #### L [id number] ####[facility] ([facility])[address] [place] [address] Lymphocytes (Bld) [#/Vol] 1.23 10*3/uL Normal 1.20-4.00 [facility] Comment on above: Performed By: #### L [id number] ####[facility] ([facility])[address] [place] [address] Lymphocytes/100 WBC (Bld) 15.8 % Low 20.0-45.0 [facility] Comment on above: Performed By: #### L [id number] ####[facility] ([facility])[address] [place] [address] MCH (RBC) [Entitic mass] 29.1 pg Normal 27.0-33.0 [facility] Comment on above: Performed By: #### L [id number] ####[facility] ([facility])[address] [place] [address] MCV (RBC) [Entitic vol] 92.9 fL Normal 82.0-98.0 [facility] Comment on above: Performed By: #### L [id number] ####[facility] ([facility] [place] [address] Monocytes (Bld) [#/Vol] 0.96 10*3/uL Normal 0.10-1.00 [facility] Comment on above: Performed By: #### L [id number] ####[facility] ([facility] [place] [address] Monocytes/100 WBC (Bld) 12.4 % High 5.0-12.0 [facility] Comment on above: Performed By: #### L [id number] ####[facility] (BEAKER)[address] [place] [address] Neutrophils (Bld) [#/Vol] 5.02 10*3/uL Normal 1.60-7.60 [facility] Comment on above: Performed By: #### L [id number] ####[facility] ([facility] [place] [address] Neutrophils/100 WBC (Bld) 64.6 % Normal 40.0-72.0 [facility] Comment on above: Performed By: #### L [id number] ####[facility] ([facility])[address] [place] [address] NRBC (PER 100 WBCS) BY AUTOMATED COUNT 0.0 % Normal 0 [facility] Comment on above: Performed By: #### L [id number] ####[facility] ([facility])[address] [place] [address] PLATELETS (10*3/UL) IN BLOOD AUTOMATED COUNT 194 10*3/uL Normal 150-400 [facility] Comment on above: Performed By: #### L [id number] ####[facility] ([facility])[address] [place] [address] RBC (Bld) [#/Vol] 5.47 10*6/uL Normal 4.20-5.70 [facility] Comment on above: Performed By: #### L [id number] ####[facility] ([facility])[address] [place] [address] WBC (Bld) [#/Vol] 7.77 10*3/uL Normal 4.00-10.60 [facility] Comment on above: Performed By: #### L [id number] ####[facility] ([facility])[address] [place] [address] CONSULTon 08-24-2024 CONSULT Normal [facility] CT HEAD WO IV CONTRASTon CT HEAD WO IV CONTRAST Invalid Interpretation Code [facility] CTA CHEST W IV CONTRASTon CTA CHEST W IV CONTRAST Normal [facility] MAGNESIUMon 08-24-2024 Magnesium [Mass/Vol] 1.7 mg/dL Low 1.9-2.7 [facility] Comment on above: Performed By: #### L [id number] ####[facility] ([facility])[address] [place] [address] Magnesium [Mass/Vol] 1.4 mg/dL Low 1.9-2.7 [facility] Comment on above: Performed By: #### L [id number] ####[facility] ([facility])[address] [place] [address] NURSNOTEon 08-24-2024 NURSNOTE Normal [facility] NURSNOTE Normal [facility] PHOSPHORUSon 08-24-2024 Magnesium [Mass/Vol] 3.4 mg/dL Normal 2.5-5.0 [facility] Comment on above: Performed By: #### L [id number] ####[facility] ([facility])[address] [place] [address] POCT GLUCOSE METER UNSOLICIT ED RESULTSon 08-24-2024 Glucose [Mass/Vol] 182 mg/dL High 70-105 [facility] Comment on above: Order Comment: Waive d Testing in the ED is performed under the ED CLIA certificate #[id number]. Result Comment: [email or web address] kol Performed By: #### L [id number] ####[facility] ([facility])[address] [place] [address] Glucose [Mass/Vol] 166 mg/dL High 70-105 [facility] Comment on above: Order Comment: Waive d Testing in the ED is performed under the ED CLIA certificate #[id number]. Result Comment: [email or web address] Performed By: #### L [id number] ####[facility] ([facility])[address] [place] [address] Glucose [Mass/Vol] 150 mg/dL High 70-105 [facility] Comment on above: Order Comment: Waive d Testing in the ED is performed under the ED CLIA certificate #[id number]. Result Comment: besc obe Performed By: #### L [id number] ####[facility] ([facility])[address] [place] [address] Glucose [Mass/Vol] 136 mg/dL High 70-105 [facility] Comment on above: Order Comment: Waive d Testing in the ED is performed under the ED CLIA certificate #[id number]. Result Comment: [id number] [id number] Value Noted Performed By: #### L [id number] ####[facility] ([facility])[address] [place] [address] BASIC METABOLIC PANELon 02-0 Anion gap [Moles/Vol] 10 mmol/L Normal 7-20 [facility] Comment on above: Performed By: #### L [id number] ####[facility] ([facility])[address] [place] [address] Calcium [Mass/Vol] 9.8 mg/dL Normal 8.6-10.3 [facility] Comment on above: Performed By: #### L [id number] ####[facility] [facility] [place] [address] Chloride [Moles/Vol] 99 mmol/L Normal 98-107 [facility] Comment on above: Performed By: #### L [id number] ####[facility] ([facility])[address] [place] [address] CO2 [Moles/Vol] 33 mmol/L High 21-31 [facility] Comment on above: Performed By: #### L [id number] ####[facility] ([facility])[address] [place] [address] Creatinine [Mass/Vol] 0.94 mg/dL Normal 0.70-1.30 [facility] Comment on above: Performed By: #### L [id number] ####[facility] ([facility])[address] [place] [address] GLOMERULAR FILTRATION RATE ML/MIN/1.73 SQ M.PREDICTED 90.0 mL/min/1.73m*2 Normal >60.0 [facility] Comment on above: Result Comment: The [facility]???s estimated glomerular filtration rate (eGFR) will [...] of individuals. Performed By: #### L [id number] ####[facility] ([facility])[address] [facility] [place] [address] Glucose [Mass/Vol] 274 mg/dL High 70-100 [facility] Comment on above: Performed By: #### L [id number] ####[facility] ([facility])[address] [facility] [place] [place] [address] Potassium [Moles/Vol] 3.8 mmol/L Normal 3.5-5.1 [facility] Comment on above: Performed By: #### L [id number] ####[facility] ([facility])[address] [facility] [place] [place] [address] Sodium [Moles/Vol] 138 mmol/L Normal 136-145 [facility] Comment on above: Performed By: #### L [id number] ####[facility] ([facility])[address] [facility] [place] [address] Urea nitrogen [Mass/Vol] 31 mg/dL High 7-25 [facility] Comment on above: Performed By: #### L [id number] ####[facility] ([facility])[address] [facility] [place] [address] UREA NITROGEN/CREATININE (MASS RATIO) IN SER/PLAS 33.0 Normal [facility] Comment on above: Performed By: #### L [id number] ####[facility] ([facility])[address] [place] [address] CBC WITH AUTO DIFFERENTIALon 08-23-2024 Basophils (Bld) [#/Vol] 0.06 10*3/uL Normal 0.00-0.20 [facility] Comment on above: Performed By: #### L [id number] ####[facility] ([facility])[address] [place] [address] Basophils/100 WBC (Bld) 0.9 % Normal 0.0-1.0 [facility] Comment on above: Performed By: #### L [id number] ####[facility] ([facility])[address] [place] [address] Eosinophils (Bld) [#/Vol] 0.34 10*3/uL Normal 0.00-0.50 [facility] Comment on above: Performed By: #### L [id number] ####[facility] ([facility])[address] [place] [address] Eosinophils/100 WBC (Bld) 4.8 % Normal 0.0-6.0 [facility] Comment on above: Performed By: #### L [id number] ####[facility] ([facility])[address] [place] [address] Erythrocyte distribution width (RBC) [Ratio] 14.7 % Normal 11.5-15.0 [facility] Comment on above: Performed By: #### L [id number] ####[facility] ([facility])[address] [place] [address] ERYTHROCYTE MEAN CORPUSCULAR HEMOGLOBIN CONCENTRATION (G/DL) BY AUTOMATED 31.8 g/dL Low 32.0-35.0 [facility] Comment on above: Performed By: #### L [id number] ####[facility] ([facility])[address] [place] [address] Hematocrit (Bld) [Volume fraction] 52.5 % Normal 39.0-55.0 [facility] Comment on above: Performed By: #### L [id number] ####[facility] ([facility])[address] [place] [address] Hemoglobin (Bld) [Mass/Vol] 16.7 g/dL Normal 13.0-17.0 [facility] Comment on above: Performed By: #### L [id number] ####[facility] ([facility])[address] [facility] [place] [address] Immature granulocytes (Bld) [#/Vol] 0.05 10*3/uL Normal 0.00-0.20 [facility] Comment on above: Performed By: #### L [id number] ####[facility] ([facility])[address] [place] [address] Immature granulocytes/100 WBC (Bld) 0.7 % Normal 0.0-1.0 [facility] Comment on above: Performed By: #### L [id number] ####[facility] ([facility])[address] [place] [address] Lymphocytes (Bld) [#/Vol] 1.15 10*3/uL Low 1.20-4.00 [facility] Comment on above: Performed By: #### L [id number] ####[facility] ([facility])[address] [place] [address] Lymphocytes/100 WBC (Bld) 16.4 % Low 20.0-45.0 [facility] Comment on above: Performed By: #### L [id number] ####[facility] ([facility])[address] [place] [address] MCH (RBC) [Entitic mass] 29.0 pg Normal 27.0-33.0 [facility] Comment on above: Performed By: #### L [id number] ####[facility] ([facility])[address] [place] [address] MCV (RBC) [Entitic vol] 91.1 fL Normal 82.0-98.0 [facility] Comment on above: Performed By: #### L [id number] ####[facility] ([facility])[address] [facility] [place] [address] Monocytes (Bld) [#/Vol] 0.85 10*3/uL Normal 0.10-1.00 [facility] Comment on above: Performed By: #### L [id number] ####[facility] ([facility])[address] [facility] [place] [address] Monocytes/100 WBC (Bld) 12.1 % High 5.0-12.0 [facility] Comment on above: Performed By: #### L [id number] ####[facility] ([facility])[address] [place] [address] Neutrophils (Bld) [#/Vol] 4.58 10*3/uL Normal 1.60-7.60 [facility] Comment on above: Performed By: #### L [id number] ####[facility] ([facility])[address] [place] [address] Neutrophils/100 WBC (Bld) 65.1 % Normal 40.0-72.0 [facility] Comment on above: Performed By: #### L [id number] ####[facility] ([facility])[address] [place] [address] NRBC (PER 100 WBCS) BY AUTOMATED COUNT 0.0 % Normal 0 [facility] Comment on above: Performed By: #### L [id number] ####[facility] ([facility])[address] [place] [address] PLATELETS (10*3/UL) IN BLOOD AUTOMATED COUNT 190 10*3/uL Normal 150-400 [facility] Comment on above: Performed By: #### L [id number] ####[facility] ([facility])[address] [place] [address] RBC (Bld) [#/Vol] 5.76 10*6/uL High 4.20-5.70 [facility] Comment on above: Performed By: #### L [id number] ####[facility] ([facility])[address] [place] [address] WBC (Bld) [#/Vol] 7.03 10*3/uL Normal 4.00-10.60 [facility] Comment on above: Performed By: #### L [id number] ####[facility] ([facility])[address] [place] [address] CONSULTon 08-23-2024 CONSULT Normal [facility] LIPID PANELon 08-23-2024 CHOL/HDL 7.8 mg/dL Normal [facility] Comment on above: Performed By: #### L [id number] ####[facility] ([facility])[address] [place] [address] Cholesterol [Mass/Vol] 195 mg/dL Normal 120-200 [facility] Comment on above: Performed By: #### L [id number] ####[facility] [place] [address] Magnesium [Mass/Vol] 177 mg/dL High 40-149 [facility] Comment on above: Result Comment: TRIG LYCERIDE REFERENCE RANGE:20 YEARS AND OLDER CARDIOVASCULAR RISKLESS THAN 150 mg/dL LOW [id number] TO 199 mg/dL BORDERLINE [id number] mg/dL AND GREATER HIGH RISK Performed By: #### L [id number] ####[facility] ([facility] [place] [address] Magnesium [Mass/Vol] 135 mg/dL Normal 0-160 [facility] Comment on above: Performed By: #### L [id number] ####[facility] ([facility])[address] [place] [address] Magnesium [Mass/Vol] 25 mg/dL Normal 23-92 [facility] Comment on above: Performed By: #### L [id number] ####[facility] ([facility])[address] [place] [address] NON HDL CHOL. (LDL+VLDL) 170 Normal [facility] Comment on above: Performed By: #### L [id number] ####[facility] ([facility])[address] [place] [address] TOTAL VLDL-C 35 mg/dL Normal 0-40 [facility] Comment on above: Performed By: #### L [id number] ####[facility] ([facility])[address] [place] [address] POCT GLUCOSE METER UNSOLICIT ED RESULTSon 08-23-2024 Glucose [Mass/Vol] 169 mg/dL High 70-105 [facility] Comment on above: Order Comment: Waive d Testing in the ED is performed under the ED CLIA certificate #[id number]. Result Comment: enoch tti Performed By: #### L [id number] ####[facility] ([facility])[address] [facility] [place] [address] Glucose [Mass/Vol] 183 mg/dL High 70-105 [facility] Comment on above: Order Comment: Waive d Testing in the ED is performed under the ED CLIA certificate #[id number]. Result Comment: ezab ors2 Performed By: #### L [id number] ####[facility] ([facility])[address] [facility] [place] [address] Glucose [Mass/Vol] 283 mg/dL High 70-105 [facility] Comment on above: Order Comment: Waive d Testing in the ED is performed under the ED CLIA certificate #[id number]. Result Comment: ezab ors2 Performed By: #### L [id number] ####[facility] ([facility])[address] [facility] [place] [address] Glucose [Mass/Vol] 258 mg/dL High 70-105 [facility] Comment on above: Order Comment: Waive d Testing in the ED is performed under the ED CLIA certificate #[id number]. Result Comment: tful [email or web address] Performed By: #### L [id number] ####[facility] ([facility])[address] [facility] [place] [address] 30on 08-22-2024 30 Normal [facility] ANTI-XA (HEPARIN LEVEL)on HEPARIN UNFRACTIONATED (U/ML) IN PPP BY CHROMOGENIC METHOD 0.31 IU/mL Normal 0.3-0.7 [facility] Comment on above: Result Comment: Tyler roxaban and Apixaban will interfere with the anti Xa assay used to monitor UFH and LMWH. Performed By: #### L [id number] ####[facility] ([facility])[address] [facility] [place] [address] BASIC METABOLIC PANELon Anion gap [Moles/Vol] 10 mmol/L Normal 7-20 [facility] Comment on above: Performed By: #### L [id number] ####[facility] ([facility])[address] [place] [address] Calcium [Mass/Vol] 9.6 mg/dL Normal 8.6-10.3 [facility] Comment on above: Performed By: #### L [id number] ####[facility] ([facility])[address] [place] [address] Chloride [Moles/Vol] 102 mmol/L Normal 98-107 [facility] Comment on above: Performed By: #### L [id number] ####[facility] ([facility])[address] [place] [address] CO2 [Moles/Vol] 32 mmol/L High 21-31 [facility] Comment on above: Performed By: #### L [id number] ####[facility] ([facility])[address] [facility] [address] Creatinine [Mass/Vol] 1.01 mg/dL Normal 0.70-1.30 [facility] Comment on above: Performed By: #### L [id number] ####[facility] ([facility])[address] [facility] [address] GLOMERULAR FILTRATION RATE ML/MIN/1.73 SQ M.PREDICTED 82.5 mL/min/1.73m*2 Normal >60.0 [facility] Comment on above: Result Comment: The [facility]???s estimated glomerular filtration rate (eGFR) will [...] of individuals. Performed By: #### L [id number] ####[facility] ([facility] [place] [address] Glucose [Mass/Vol] 263 mg/dL High 70-100 [facility] Comment on above: Performed By: #### L [id number] ####[facility] ([facility])[address] [place] [address] Potassium [Moles/Vol] 3.7 mmol/L Normal 3.5-5.1 [facility] Comment on above: Performed By: #### L [id number] ####[facility] ([facility])[address] [place] [address] Sodium [Moles/Vol] 140 mmol/L Normal 136-145 [facility] Comment on above: Performed By: #### L [id number] ####[facility] ([facility])[address] [place] [address] Urea nitrogen [Mass/Vol] 33 mg/dL High 7-25 [facility] Comment on above: Performed By: #### L [id number] ####[facility] ([facility])[address] [place] [address] UREA NITROGEN/CREATININE (MASS RATIO) IN SER/PLAS 32.7 Normal [facility] Comment on above: Performed By: #### L [id number] ####[facility] ([facility])[address] [place] [address] CBC WITH AUTO DIFFERENTIALon 08-22-2024 Basophils (Bld) [#/Vol] 0.05 10*3/uL Normal 0.00-0.20 [facility] Comment on above: Performed By: #### L [id number] ####[facility] ([facility])[address] [place] [address] Basophils/100 WBC (Bld) 0.5 % Normal 0.0-1.0 [facility] Comment on above: Performed By: #### L [id number] ####[facility] ([facility] [place] [address] Eosinophils (Bld) [#/Vol] 0.36 10*3/uL Normal 0.00-0.50 [facility] Comment on above: Performed By: #### L [id number] ####[facility] ([facility])[address] [place] [address] Eosinophils/100 WBC (Bld) 3.9 % Normal 0.0-6.0 [facility] Comment on above: Performed By: #### L [id number] ####[facility] ([facility])[address] [place] [address] Erythrocyte distribution width (RBC) [Ratio] 14.7 % Normal 11.5-15.0 [facility] Comment on above: Performed By: #### L [id number] ####[facility] ([facility])[address] [place] [address] ERYTHROCYTE MEAN CORPUSCULAR HEMOGLOBIN CONCENTRATION (G/DL) BY AUTOMATED 30.8 g/dL Low 32.0-35.0 [facility] Comment on above: Performed By: #### L [id number] ####[facility] ([facility] [place] [address] Hematocrit (Bld) [Volume fraction] 52.9 % Normal 39.0-55.0 [facility] Comment on above: Performed By: #### L [id number] ####[facility] ([facility] [place] [address] Hemoglobin (Bld) [Mass/Vol] 16.3 g/dL Normal 13.0-17.0 [facility] Comment on above: Performed By: #### L [id number] ####[facility] ([facility] [place] [address] Immature granulocytes (Bld) [#/Vol] 0.07 10*3/uL Normal 0.00-0.20 [facility] Comment on above: Performed By: #### L [id number] ####[facility] ([facility])[address] [place] [address] Immature granulocytes/100 WBC (Bld) 0.7 % Normal 0.0-1.0 [facility] Comment on above: Performed By: #### L [id number] ####[facility] ([facility] [place] [address] Lymphocytes (Bld) [#/Vol] 1.16 10*3/uL Low 1.20-4.00 [facility] Comment on above: Performed By: #### L [id number] ####[facility] ([facility])[address] [place] [address] Lymphocytes/100 WBC (Bld) 12.4 % Low 20.0-45.0 [facility] Comment on above: Performed By: #### L [id number] ####[facility] ([facility])[address] [place] [address] MCH (RBC) [Entitic mass] 28.8 pg Normal 27.0-33.0 [facility] Comment on above: Performed By: #### L [id number] ####[facility] ([facility])[address] [place] [address] MCV (RBC) [Entitic vol] 93.5 fL Normal 82.0-98.0 [facility] Comment on above: Performed By: #### L [id number] ####[facility] ([facility])[address] [place] [address] Monocytes (Bld) [#/Vol] 1.21 10*3/uL High 0.10-1.00 [facility] Comment on above: Performed By: #### L [id number] ####[facility] ([facility])[address] [place] [address] Monocytes/100 WBC (Bld) 12.9 % High 5.0-12.0 [facility] Comment on above: Performed By: #### L [id number] ####[facility] ([facility] [place] [address] Neutrophils (Bld) [#/Vol] 6.50 10*3/uL Normal 1.60-7.60 [facility] Comment on above: Performed By: #### L [id number] ####[facility] ([facility] [place] [address] Neutrophils/100 WBC (Bld) 69.6 % Normal 40.0-72.0 [facility] Comment on above: Performed By: #### L [id number] ####[facility] ([facility] [place] [address] NRBC (PER 100 WBCS) BY AUTOMATED COUNT 0.0 % Normal 0 [facility] Comment on above: Performed By: #### L [id number] ####[facility] ([facility])[address] [place] [address] PLATELETS (10*3/UL) IN BLOOD AUTOMATED COUNT 187 10*3/uL Normal 150-400 [facility] Comment on above: Performed By: #### L [id number] ####[facility] ([facility])[address] [place] [address] RBC (Bld) [#/Vol] 5.66 10*6/uL Normal 4.20-5.70 [facility] Comment on above: Performed By: #### L [id number] ####[facility] ([facility])[address] [place] [address] WBC (Bld) [#/Vol] 9.35 10*3/uL Normal 4.00-10.60 [facility] Comment on above: Performed By: #### L [id number] ####[facility] ([facility])[address] [place] [address] POCT GLUCOSE METER UNSOLICIT ED RESULTSon 08-22-2024 Glucose [Mass/Vol] 256 mg/dL High 70-105 [facility] Comment on above: Order Comment: Waive d Testing in the ED is performed under the ED CLIA certificate #[id number]. Result Comment: ezab ors2 Performed By: #### L [id number] ####[facility] [place] [address] Glucose [Mass/Vol] 277 mg/dL High 70-105 [facility] Comment on above: Order Comment: Waive d Testing in the ED is performed under the ED CLIA certificate #[id number]. Result Comment: ezab [email or web address] Performed By: #### L [id number] ####[facility] ([facility])[address] [place] [address] ANTI-XA (HEPARIN LEVEL)on HEPARIN UNFRACTIONATED (U/ML) IN PPP BY CHROMOGENIC METHOD 0.30 IU/mL Normal 0.3-0.7 [facility] Comment on above: Result Comment: Tatyana roxaban and Apixaban will interfere with the anti Xa assay used to monitor UFH and LMWH. Performed By: #### L [id number] ####[facility] ([facility])[address] [place] [address] ARTERIAL BLOOD GAS WITH CO-O XIMETRYon 08-21-2024 Base excess Calc (Bld) [Moles/Vol] 6.7 mmol/L High -2.0-3.0 [facility] Comment on above: Performed By: #### L [id number] ####[facility] [id number] [place] [address] [facility] CARBOXYHEMOGLOBIN/HEMO GLOBIN TOTAL % IN BLOOD 2.0 % Normal 0.0-3.0 [facility] Comment on above: Performed By: #### L [id number] ####[facility] [id number] [place] [address] [place] CO2 (Bld) [Partial pressure] 43 mm[Hg] Normal 35-48 [facility] Comment on above: Performed By: #### L [id number] ####[facility] [id number] [place] [address] [place] DEOXYGENATED HEMOGLOBIN IN BLOOD 4.9 % Normal 1-5 [facility] Comment on above: Performed By: #### L [id number] ####[facility] RESPIRATORY [id number] [place] [address] [place] FIO2 50 % Normal [facility] Comment on above: Performed By: #### L [id number] ####[facility] RESPIRATORY [id number] [facility] [place] [address] [facility] HCO3 (Bld) [Moles/Vol] 31.3 mmol/L High 21.0-28.0 [facility] Comment on above: Performed By: #### L [id number] ####[facility] RESPIRATORY [id number] [facility] [place] [address] [facility] Hemoglobin (Bld) [Mass/Vol] 16.5 g/dL Normal 11.7-17.4 [facility] Comment on above: Performed By: #### L [id number] ####[facility] RESPIRATORY [id number] [place] [address] [facility] METHEMOGLOBIN/100 IN BLOOD 0.7 % Normal 0.0-1.5 [facility] Comment on above: Performed By: #### L [id number] ####[facility] RESPIRATORY [id number] [place] [address] [facility] Oxygen (Bld) [Partial pressure] 68 mm[Hg] Low 83-100 [facility] Comment on above: Performed By: #### L [id number] ####[facility] [facility]PIRATORY [id number] [place] [address] [facility] OXYGEN SATURATION (%) IN ARTERIAL BLOOD 95.0 % Normal 94.0-98.0 [facility] Comment on above: Performed By: #### L [id number] ####[facility] [id number] [place] [address] [facility] OXYGENATED HEMOGLOBIN IN BLOOD 92.4 % Normal 90.0-95.0 [facility] Comment on above: Performed By: #### L [id number] ####[facility] [id number] [place] [address] [facility] pH (Bld) 7.47 [pH] High 7.35-7.45 [facility] Comment on above: Performed By: #### L [id number] ####[facility] [id number] [facility] [place] [address] [facility] SOURCE OF OXYGEN Bi-PAP Normal [facility] Comment on above: Performed By: #### L [id number] ####[facility] [id number] [place] [address] [place] Base excess Calc (Bld) [Moles/Vol] 5.1 mmol/L High -2.0-3.0 [facility] Comment on above: Performed By: #### L [id number] ####[facility] [id number] [place] [address] [place] CARBOXYHEMOGLOBIN/HEMO GLOBIN TOTAL % IN BLOOD 1.9 % Normal 0.0-3.0 [facility] Comment on above: Performed By: #### L [id number] ####[facility] [id number] [place] [address] [place] CO2 (Bld) [Partial pressure] 46 mm[Hg] Normal 35-48 [facility] Comment on above: Performed By: #### L [id number] ####[facility] [id number] [place] [address] [facility] DEOXYGENATED HEMOGLOBIN IN BLOOD 15.8 % Critically high 1-5 [facility] Comment on above: Performed By: #### L [id number] ####[facility] [id number] [place] [address] [place] HCO3 (Bld) [Moles/Vol] 30.5 mmol/L High 21.0-28.0 [facility] Comment on above: Performed By: #### L [id number] ####[facility]IR[facility] [id number] [place] [address] [place] Hemoglobin (Bld) [Mass/Vol] 16.4 g/dL Normal 11.7-17.4 [facility] Comment on above: Performed By: #### L [id number] ####[facility] [id number] [place] [address] [place] LPM 15 Normal [facility] Comment on above: Performed By: #### L [id number] ####[facility] [id number] [place] [address] [place] METHEMOGLOBIN/100 IN BLOOD 0.6 % Normal 0.0-1.5 [facility] Comment on above: Performed By: #### L [id number] ####[facility] [id number] [place] [address] [place] Oxygen (Bld) [Partial pressure] 53 mm[Hg] Invalid Interpretation Code 83-100 [facility] Comment on above: Performed By: #### L [id number] ####[facility] [id number] [place] [address] [facility] OXYGEN SATURATION (%) IN ARTERIAL BLOOD 83.8 % Invalid Interpretation Code 94.0-98.0 [facility] Comment on above: Performed By: #### L [id number] ####[facility] [id number] [place] [address] [facility] OXYGENATED HEMOGLOBIN IN BLOOD 81.7 % Invalid Interpretation Code 90.0-95.0 [facility] Comment on above: Performed By: #### L [id number] ####[facility] [id number] [place] [address] [facility] pH (Bld) 7.43 [pH] Normal 7.35-7.45 [facility] Comment on above: Performed By: #### L [id number] ####[facility] [id number] [place] [address] [facility] SOURCE OF OXYGEN SALTER Normal [facility] Comment on above: Performed By: #### L [id number] ####[facility] [id number] [place] [address] [facility] ARTERIAL BLOOD GAS WITH IONI ZED CALCIUMon 08-21-2024 Base excess Calc (Bld) [Moles/Vol] 6.2 mmol/L High -2.0-3.0 [facility] Comment on above: Performed By: #### L [id number] ####[facility] [id number] [place] [address] [place] CALCIUM IONIZED (MMOL/L) IN BLOOD 1.30 mmol/L Normal 1.15-1.33 [facility] Comment on above: Performed By: #### L [id number] ####[facility] [id number] [place] [address] [facility] CO2 (Bld) [Partial pressure] 45 mm[Hg] Normal 35-48 [facility] Comment on above: Performed By: #### L [id number] ####[facility] [id number] [facility] [place] [address] [place] FIO2 50 % Normal [facility] Comment on above: Performed By: #### L [id number] ####[facility] [id number] [facility] [place] [address] [facility] HCO3 (Bld) [Moles/Vol] 31.3 mmol/L High 21.0-28.0 [facility] Comment on above: Performed By: #### L [id number] ####[facility] [id number] [place] [address] [facility] Oxygen (Bld) [Partial pressure] 70 mm[Hg] Low 83-100 [facility] Comment on above: Performed By: #### L [id number] ####[facility] [id number] [place] [address] [facility] OXYGEN SATURATION (%) IN ARTERIAL BLOOD 94.9 % Normal 94.0-98.0 [facility] Comment on above: Performed By: #### L [id number] ####[facility] [id number] [facility] [place] [address] [place] PEEP 8 cmH2O Normal [facility] Comment on above: Performed By: #### L [id number] ####[facility] [id number] [place] [address] [facility] pH (Bld) 7.45 [pH] Normal 7.35-7.45 [facility] Comment on above: Performed By: #### L [id number] ####[facility] [id number] [facility] [place] [address] [place] PRESSURE SUPPORT 14 Normal [facility] Comment on above: Performed By: #### L [id number] ####[facility] [id number] [facility] [place] [address] [facility] SOURCE OF OXYGEN Bi-PAP Normal [facility] Comment on above: Performed By: #### L [id number] ####[facility]IR[facility] [id number] [place] [address] [facility] BASIC METABOLIC PANELon 02-0 Anion gap [Moles/Vol] 11 mmol/L Normal 7-20 [facility] Comment on above: Performed By: #### L [id number] ####[facility] ([facility]AKER)[address] [place] [address] Calcium [Mass/Vol] 9.4 mg/dL Normal 8.6-10.3 [facility] Comment on above: Performed By: #### L [id number] ####[facility] LAB (BEAKER)[address] [place] [address] Chloride [Moles/Vol] 101 mmol/L Normal 98-107 [facility] Comment on above: Performed By: #### L [id number] ####[facility] LAB (BEAKER)[address] [place] [address] CO2 [Moles/Vol] 30 mmol/L Normal 21-31 [facility] Comment on above: Performed By: #### L [id number] ####[facility] LAB (BEAKER)[address] [place] [address] Creatinine [Mass/Vol] 1.05 mg/dL Normal 0.70-1.30 [facility] Comment on above: Performed By: #### L [id number] ####[facility] LAB (BEAKER)[address] [place] [address] GLOMERULAR FILTRATION RATE ML/MIN/1.73 SQ M.PREDICTED 78.8 mL/min/1.73m*2 Normal >60.0 [facility] Comment on above: Result Comment: The [facility]???s estimated glomerular filtration rate (eGFR) will [...] of individuals. Performed By: #### L [id number] ####[facility] LAB ([facility])[address] [place] [address] Glucose [Mass/Vol] 269 mg/dL High 70-100 [facility] Comment on above: Performed By: #### L [id number] ####[facility] LAB ([facility])[address] [place] [address] Potassium [Moles/Vol] 4.0 mmol/L Normal 3.5-5.1 [facility] Comment on above: Performed By: #### L [id number] ####[facility] LAB ([facility])[address] [place] [address] Sodium [Moles/Vol] 138 mmol/L Normal 136-145 [facility] Comment on above: Performed By: #### L [id number] ####[facility] LAB ([facility])[address] [place] [address] Urea nitrogen [Mass/Vol] 35 mg/dL High 7-25 [facility] Comment on above: Performed By: #### L [id number] ####[facility] LAB ([facility])[address] [place] [address] UREA NITROGEN/CREATININE (MASS RATIO) IN SER/PLAS 33.3 Normal [facility] Comment on above: Performed By: #### L [id number] ####[facility] LAB ([facility])[address] [place] [address] CALCIUM, IONIZEDon CALCIUM IONIZED (MMOL/L) IN BLOOD 1.29 mmol/L Normal 1.15-1.33 [facility] Comment on above: Performed By: #### C ALCIUM, IONIZED ####[facility]IR[facility] [id number] [place] [address] [place] CBC WITH AUTO DIFFERENTIALon 08-21-2024 Basophils (Bld) [#/Vol] 0.05 10*3/uL Normal 0.00-0.20 [facility] Comment on above: Performed By: #### L [id number] ####[facility] LAB (BEAKER)[address] [place] [address] Basophils/100 WBC (Bld) 0.6 % Normal 0.0-1.0 [facility] Comment on above: Performed By: #### L [id number] ####[facility] LAB (BEAKER)[address] [place] [address] Eosinophils (Bld) [#/Vol] 0.43 10*3/uL Normal 0.00-0.50 [facility] Comment on above: Performed By: #### L [id number] ####[facility] LAB (BEAKER)[address] [place] [address] Eosinophils/100 WBC (Bld) 5.2 % Normal 0.0-6.0 [facility] Comment on above: Performed By: #### L [id number] ####[facility] LAB (BEAKER)[address] [place] [address] Erythrocyte distribution width (RBC) [Ratio] 14.8 % Normal 11.5-15.0 [facility] Comment on above: Performed By: #### L [id number] ####[facility] LAB (BEAKER)[address] [place] [address] ERYTHROCYTE MEAN CORPUSCULAR HEMOGLOBIN CONCENTRATION (G/DL) BY AUTOMATED 31.1 g/dL Low 32.0-35.0 [facility] Comment on above: Performed By: #### L [id number] ####[facility] LAB (BEAKER)[address] [place] [address] Hematocrit (Bld) [Volume fraction] 52.1 % Normal 39.0-55.0 [facility] Comment on above: Performed By: #### L [id number] ####[facility] LAB (BEAKER)[address] [place] [address] Hemoglobin (Bld) [Mass/Vol] 16.2 g/dL Normal 13.0-17.0 [facility] Comment on above: Performed By: #### L [id number] ####[facility] LAB (BEAKER)[address] [place] [address] Immature granulocytes (Bld) [#/Vol] 0.06 10*3/uL Normal 0.00-0.20 [facility] Comment on above: Performed By: #### L [id number] ####[facility] LAB (BEAKER)[address] [place] [address] Immature granulocytes/100 WBC (Bld) 0.7 % Normal 0.0-1.0 [facility] Comment on above: Performed By: #### L [id number] ####[facility] LAB (BEAKER)[address] [place] [address] Lymphocytes (Bld) [#/Vol] 1.10 10*3/uL Low 1.20-4.00 [facility] Comment on above: Performed By: #### L [id number] ####[facility] LAB (BEAKER)[address] [place] [address] Lymphocytes/100 WBC (Bld) 13.3 % Low 20.0-45.0 [facility] Comment on above: Performed By: #### L [id number] ####[facility] LAB (BEAKER)[address] [place] [address] MCH (RBC) [Entitic mass] 29.1 pg Normal 27.0-33.0 [facility] Comment on above: Performed By: #### L [id number] ####[facility] LAB (BEAKER)[address] [place] [address] MCV (RBC) [Entitic vol] 93.7 fL Normal 82.0-98.0 [facility] Comment on above: Performed By: #### L [id number] ####[facility] LAB (BEAKER)[address] [place] [address] Monocytes (Bld) [#/Vol] 0.92 10*3/uL Normal 0.10-1.00 [facility] Comment on above: Performed By: #### L [id number] ####[facility] LAB (BEAKER)[address] [place] [address] Monocytes/100 WBC (Bld) 11.1 % Normal 5.0-12.0 [facility] Comment on above: Performed By: #### L [id number] ####[facility] ([facility] [place] [address] Neutrophils (Bld) [#/Vol] 5.72 10*3/uL Normal 1.60-7.60 [facility] Comment on above: Performed By: #### L [id number] ####[facility] ([facility])[address] [place] [address] Neutrophils/100 WBC (Bld) 69.1 % Normal 40.0-72.0 [facility] Comment on above: Performed By: #### L [id number] ####[facility] ([facility])[address] [place] [address] NRBC (PER 100 WBCS) BY AUTOMATED COUNT 0.0 % Normal 0 [facility] Comment on above: Performed By: #### L [id number] ####[facility] ([facility])[address] [place] [address] PLATELETS (10*3/UL) IN BLOOD AUTOMATED COUNT 199 10*3/uL Normal 150-400 [facility] Comment on above: Performed By: #### L [id number] ####[facility] ([facility])[address] [place] [address] RBC (Bld) [#/Vol] 5.56 10*6/uL Normal 4.20-5.70 [facility] Comment on above: Performed By: #### L [id number] ####[facility] ([facility])[address] [place] [address] WBC (Bld) [#/Vol] 8.28 10*3/uL Normal 4.00-10.60 [facility] Comment on above: Performed By: #### L [id number] ####[facility] LAB (BEAKER)[address] [place] [address] CT BRAIN PERFUSIONon 025 CT BRAIN PERFUSION Invalid Interpretation Code [facility] CT HEAD WO IV CONTRASTon CT HEAD WO IV CONTRAST [facility] HEAD W IV CONTRASTon CTA HEAD W IV CONTRAST Normal [facility] CTA NECK W IV CONTRASTon CTA NECK W IV CONTRAST [facility] MAGNESIUMon 08-21-2024 Magnesium [Mass/Vol] 1.8 mg/dL Low 1.9-2.7 [facility] Comment on above: Performed By: #### L [id number] ####[facility] LAB (BEAKER)[address] [place] [address] MRSA/MSSA DNA NASALon 2024 MRSA DNA Positive Abnormal Negative [facility] Comment on above: Order Comment: Testi [...] preclude nasal colonization. Performed By: #### L [id number] ####[facility] LAB (BEAKER)[address] [place] [address] MSSA DNA Negative Normal Negative [facility] Comment on above: Order Comment: Testi [...] preclude nasal colonization. Performed By: #### L [id number] ####[facility] LAB (BEAKER)[address] [place] [address] PHOSPHORUSon 08-21-2024 Magnesium [Mass/Vol] 2.5 mg/dL Normal 2.5-5.0 [facility] Comment on above: Performed By: #### L [id number] ####[facility] (BEAKER)[address] [place] [address] POCT GLUCOSE METER UNSOLICIT ED RESULTSon 08-21-2024 Glucose [Mass/Vol] 230 mg/dL High 70-105 [facility] Comment on above: Order Comment: Waive d Testing in the ED is performed under the ED CLIA certificate #[id number]. Result Comment: [email or web address] Performed By: #### L [id number] ####[facility] ([facility])[address] [place] [address] Glucose [Mass/Vol] 226 mg/dL High 70-105 [facility] Comment on above: Order Comment: Waive d Testing in the ED is performed under the ED CLIA certificate #[id number]. Result Comment: [email or web address] Performed By: #### L [id number] ####[facility] ([facility])[address] [place] [address] Glucose [Mass/Vol] 229 mg/dL High 70-105 [facility] Comment on above: Order Comment: Waive d Testing in the ED is performed under the ED CLIA certificate #[id number]. Result Comment: [email or web address] Performed By: #### L [id number] ####[facility] ([facility])[address] [place] [address] Glucose [Mass/Vol] 234 mg/dL High 70-105 [facility] Comment on above: Order Comment: Waive d Testing in the ED is performed under the ED CLIA certificate #[id number]. Result Comment: [email or web address] Performed By: #### L [id number] ####[facility] ([facility])[address] [place] [address] POTASSIUM, WHOLE BLOODon Potassium [Moles/Vol] 3.3 mmol/L Low 3.5-5.1 [facility] Comment on above: Performed By: #### P OTASSIUM, WHOLE BLOOD ####[facility] [id number] [place] [address] [place] SODIUM, WHOLE BLOODon 2024 SODIUM, WHOLE BLOOD 137 Normal 136-145 [facility] Comment on above: Performed By: #### S ODIUM, WHOLE BLOOD ####[facility] [id number] [place] [address] [place] 30on 08-20-2024 30 Normal [facility] ANTI-XA (HEPARIN LEVEL)on HEPARIN UNFRACTIONATED (U/ML) IN PPP BY CHROMOGENIC METHOD 0.30 IU/mL Normal 0.3-0.7 [facility] Comment on above: Result Comment: Tatyana roxaban and Apixaban will interfere with the anti Xa assay used to monitor UFH and LMWH. Performed By: #### L [id number] ####[facility] LAB (BEAKER)[address] [place] [address] BASIC METABOLIC PANELon 07-23 Anion gap [Moles/Vol] 8 mmol/L Normal 7-20 [facility] Comment on above: Performed By: #### L [id number] ####[facility] LAB (BEAKER)[address] [place] [address] Calcium [Mass/Vol] 9.4 mg/dL Normal 8.6-10.3 [facility] Comment on above: Performed By: #### L [id number] ####[facility] (BEAKER)[address] [place] [address] Chloride [Moles/Vol] 99 mmol/L Normal 98-107 [facility] Comment on above: Performed By: #### L [id number] ####[facility] (BEAKER)[address] [place] [address] CO2 [Moles/Vol] 34 mmol/L High -31 [facility] Comment on above: Performed By: #### L [id number] ####[facility] (BEAKER)[address] [place] [address] Creatinine [Mass/Vol] 0.97 mg/dL Normal 0.70-1.30 [facility] Comment on above: Performed By: #### L [id number] ####[facility] ([facility])[address] [facility] [address] GLOMERULAR FILTRATION RATE ML/MIN/1.73 SQ M.PREDICTED 86.6 mL/min/1.73m*2 Normal >60.0 [facility] Comment on above: Result Comment: [facility]???s estimated glomerular filtration rate (eGFR) will [...] of individuals. Performed By: #### L [id number] ####[facility] ([facility])[address] [place] [address] Glucose [Mass/Vol] 267 mg/dL High 70-100 [facility] Comment on above: Performed By: #### L [id number] ####[facility] ([facility])[address] [place] [address] Potassium [Moles/Vol] 3.9 mmol/L Normal 3.5-5.1 [facility] Comment on above: Performed By: #### L [id number] ####[facility] ([facility])[address] [place] [address] Sodium [Moles/Vol] 137 mmol/L Normal 136-145 [facility] Comment on above: Performed By: #### L [id number] ####[facility] ([facility])[address] [place] [address] Urea nitrogen [Mass/Vol] 33 mg/dL High 7-25 [facility] Comment on above: Performed By: #### L [id number] ####[facility] ([facility])[address] [place] [address] UREA NITROGEN/CREATININE (MASS RATIO) IN SER/PLAS 34.0 Normal [facility] Comment on above: Performed By: #### L [id number] ####[facility] ([facility] [place] [address] CBC WITH AUTO DIFFERENTIALon 08-20-2024 Basophils (Bld) [#/Vol] 0.04 10*3/uL Normal 0.00-0.20 [facility] Comment on above: Performed By: #### L [id number] ####[facility] ([facility] [place] [address] Basophils/100 WBC (Bld) 0.4 % Normal 0.0-1.0 [facility] Comment on above: Performed By: #### L [id number] ####[facility] ([facility])[address] [place] [address] Eosinophils (Bld) [#/Vol] 0.58 10*3/uL High 0.00-0.50 [facility] Comment on above: Performed By: #### L [id number] ####[facility] ([facility] [place] [address] Eosinophils/100 WBC (Bld) 5.6 % Normal 0.0-6.0 [facility] Comment on above: Performed By: #### L [id number] ####[facility] ([facility] [place] [address] Erythrocyte distribution width (RBC) [Ratio] 15.1 % High 11.5-15.0 [facility] Comment on above: Performed By: #### L [id number] ####[facility] ([facility])[address] [place] [address] ERYTHROCYTE MEAN CORPUSCULAR HEMOGLOBIN CONCENTRATION (G/DL) BY AUTOMATED 30.5 g/dL Low 32.0-35.0 [facility] Comment on above: Performed By: #### L [id number] ####[facility] ([facility])[address] [place] [address] Hematocrit (Bld) [Volume fraction] 52.1 % Normal 39.0-55.0 [facility] Comment on above: Performed By: #### L [id number] ####[facility] ([facility])[address] [place] [address] Hemoglobin (Bld) [Mass/Vol] 15.9 g/dL Normal 13.0-17.0 [facility] Comment on above: Performed By: #### L [id number] ####[facility] ([facility] [place] [address] Immature granulocytes (Bld) [#/Vol] 0.07 10*3/uL Normal 0.00-0.20 [facility] Comment on above: Performed By: #### L [id number] ####[facility] (BEAKER)[address] [place] [address] Immature granulocytes/100 WBC (Bld) 0.7 % Normal 0.0-1.0 [facility] Comment on above: Performed By: #### L [id number] ####[facility] (BEAKER)[address] [place] [address] Lymphocytes (Bld) [#/Vol] 0.94 10*3/uL Low 1.20-4.00 [facility] Comment on above: Performed By: #### L [id number] ####[facility] (BEAKER)[address] [place] [address] Lymphocytes/100 WBC (Bld) 9.1 % Low 20.0-45.0 [facility] Comment on above: Performed By: #### L [id number] ####[facility] (BEAKER)[address] [place] [address] MCH (RBC) [Entitic mass] 29.0 pg Normal 27.0-33.0 [facility] Comment on above: Performed By: #### L [id number] ####[facility] (BEAKER)[address] [place] [address] MCV (RBC) [Entitic vol] 94.9 fL Normal 82.0-98.0 [facility] Comment on above: Performed By: #### L [id number] ####[facility] ([facility] [place] [address] Monocytes (Bld) [#/Vol] 0.95 10*3/uL Normal 0.10-1.00 [facility] Comment on above: Performed By: #### L [id number] ####[facility] ([facility])[address] [place] [address] Monocytes/100 WBC (Bld) 9.2 % Normal 5.0-12.0 [facility] Comment on above: Performed By: #### L [id number] ####[facility] ([facility])[address] [place] [address] Neutrophils (Bld) [#/Vol] 7.72 10*3/uL High 1.60-7.60 [facility] Comment on above: Performed By: #### L [id number] ####[facility] ([facility])[address] [place] [address] Neutrophils/100 WBC (Bld) 75.0 % High 40.0-72.0 [facility] Comment on above: Performed By: #### L [id number] ####[facility] ([facility])[address] [place] [address] NRBC (PER 100 WBCS) BY AUTOMATED COUNT 0.0 % Normal 0 [facility] Comment on above: Performed By: #### L [id number] ####[facility] ([facility])[address] [place] [address] PLATELETS (10*3/UL) IN BLOOD AUTOMATED COUNT 209 10*3/uL Normal 150-400 [facility] Comment on above: Performed By: #### L [id number] ####[facility] ([facility] [place] [address] RBC (Bld) [#/Vol] 5.49 10*6/uL Normal 4.20-5.70 [facility] Comment on above: Performed By: #### L [id number] ####[facility] ([facility])[address] [place] [address] WBC (Bld) [#/Vol] 10.30 10*3/uL Normal 4.00-10.60 [facility] Comment on above: Performed By: #### L [id number] ####[facility] ([facility])[address] [place] [address] MAGNESIUMon 08-20-2024 Magnesium [Mass/Vol] 1.9 mg/dL Normal 1.9-2.7 [facility] Comment on above: Performed By: #### L [id number] ####[facility] ([facility])[address] [place] [address] PHOSPHORUSon 08-20-2024 Magnesium [Mass/Vol] 2.1 mg/dL Low 2.5-5.0 [facility] Comment on above: Performed By: #### L [id number] ####[facility] ([facility])[address] [place] [address] POCT GLUCOSE METER UNSOLICIT ED RESULTSon 08-20-2024 Glucose [Mass/Vol] 268 mg/dL High 70-105 [facility] Comment on above: Order Comment: Waive d Testing in the ED is performed under the ED CLIA certificate #[id number]. Result Comment: [email or web address] Performed By: #### L [id number] ####[facility] ([facility])[address] [place] [address] 30on 08-19-2024 30 Normal [facility] 30 Normal [facility] ANTI-XA (HEPARIN LEVEL)on HEPARIN UNFRACTIONATED (U/ML) IN PPP BY CHROMOGENIC METHOD 0.41 IU/mL Normal 0.3-0.7 [facility] Comment on above: Result Comment: Tatyana roxaban and Apixaban will interfere with the anti Xa assay used to monitor UFH and LMWH. Performed By: #### L [id number] ####[facility] ([facility])[address] [place] [address] BASIC METABOLIC PANELon -3 Anion gap [Moles/Vol] 8 mmol/L Normal 7-20 [facility] Comment on above: Performed By: #### L [id number] ####[facility] (BEAKER)[address] [place] [address] Calcium [Mass/Vol] 8.9 mg/dL Normal 8.6-10.3 [facility] Comment on above: Performed By: #### L [id number] ####[facility] (BEAKER)[address] [place] [address] Chloride [Moles/Vol] 99 mmol/L Normal 98-107 [facility] Comment on above: Performed By: #### L [id number] ####[facility] (BEAKER)[address] [place] [address] CO2 [Moles/Vol] 37 mmol/L High 21-31 [facility] Comment on above: Performed By: #### L [id number] ####[facility] (BEAKER)[address] [place] [address] Creatinine [Mass/Vol] 1.00 mg/dL Normal 0.70-1.30 [facility] Comment on above: Performed By: #### L [id number] ####[facility] ([facility] [place] [address] GLOMERULAR FILTRATION RATE ML/MIN/1.73 SQ M.PREDICTED 83.5 mL/min/1.73m*2 Normal >60.0 [facility] Comment on above: Result Comment: The [facility]???s estimated glomerular filtration rate (eGFR) will [...] of individuals. Performed By: #### L [id number] ####[facility] ([facility] [place] [address] Glucose [Mass/Vol] 219 mg/dL High 70-100 [facility] Comment on above: Performed By: #### L [id number] ####[facility] ([facility] [place] [address] Potassium [Moles/Vol] 3.9 mmol/L Normal 3.5-5.1 [facility] Comment on above: Performed By: #### L [id number] ####[facility] ([facility])[address] [place] [address] Sodium [Moles/Vol] 140 mmol/L Normal 136-145 [facility] Comment on above: Performed By: #### L [id number] ####[facility] ([facility])[address] [place] [address] Urea nitrogen [Mass/Vol] 28 mg/dL High 7-25 [facility] Comment on above: Performed By: #### L [id number] ####[facility] ([facility])[address] [place] [address] UREA NITROGEN/CREATININE (MASS RATIO) IN SER/PLAS 28.0 Normal [facility] Comment on above: Performed By: #### L [id number] ####[facility] ([facility])[address] [place] [address] CBC WITH AUTO DIFFERENTIALon 08-19-2024 Basophils (Bld) [#/Vol] 0.04 10*3/uL Normal 0.00-0.20 [facility] Comment on above: Performed By: #### L [id number] ####[facility] ([facility])[address] [place] [address] Basophils/100 WBC (Bld) 0.4 % Normal 0.0-1.0 [facility] Comment on above: Performed By: #### L [id number] ####[facility] ([facility] [place] [address] Eosinophils (Bld) [#/Vol] 0.62 10*3/uL High 0.00-0.50 [facility] Comment on above: Performed By: #### L [id number] ####[facility] (BEAKER)[address] [place] [address] Eosinophils/100 WBC (Bld) 6.7 % High 0.0-6.0 [facility] Comment on above: Performed By: #### L [id number] ####[facility] (BEAKER)[address] [place] [address] Erythrocyte distribution width (RBC) [Ratio] 15.4 % High 11.5-15.0 [facility] Comment on above: Performed By: #### L [id number] ####[facility] (BEAKER)[address] [place] [address] ERYTHROCYTE MEAN CORPUSCULAR HEMOGLOBIN CONCENTRATION (G/DL) BY AUTOMATED 29.8 g/dL Low 32.0-35.0 [facility] Comment on above: Performed By: #### L [id number] ####[facility] (BEAKER)[address] [place] [address] Hematocrit (Bld) [Volume fraction] 49.4 % Normal 39.0-55.0 [facility] Comment on above: Performed By: #### L [id number] ####[facility] (BEAKER)[address] [place] [address] Hemoglobin (Bld) [Mass/Vol] 14.7 g/dL Normal 13.0-17.0 [facility] Comment on above: Performed By: #### L [id number] ####[facility] (BEAKER)[address] [place] [address] Immature granulocytes (Bld) [#/Vol] 0.06 10*3/uL Normal 0.00-0.20 [facility] Comment on above: Performed By: #### L [id number] ####[facility] (BEAKER)[address] [place] [address] Immature granulocytes/100 WBC (Bld) 0.7 % Normal 0.0-1.0 [facility] Comment on above: Performed By: #### L [id number] ####[facility] ([facility])[address] [place] [address] Lymphocytes (Bld) [#/Vol] 0.86 10*3/uL Low 1.20-4.00 [facility] Comment on above: Performed By: #### L [id number] ####[facility] ([facility])[address] [place] [address] Lymphocytes/100 WBC (Bld) 9.3 % Low 20.0-45.0 [facility] Comment on above: Performed By: #### L [id number] ####[facility] ([facility])[address] [place] [address] MCH (RBC) [Entitic mass] 28.9 pg Normal 27.0-33.0 [facility] Comment on above: Performed By: #### L [id number] ####[facility] ([facility])[address] [place] [address] MCV (RBC) [Entitic vol] 97.2 fL Normal 82.0-98.0 [facility] Comment on above: Performed By: #### L [id number] ####[facility] ([facility])[address] [place] [address] Monocytes (Bld) [#/Vol] 0.94 10*3/uL Normal 0.10-1.00 [facility] Comment on above: Performed By: #### L [id number] ####[facility] ([facility])[address] [place] [address] Monocytes/100 WBC (Bld) 10.2 % Normal 5.0-12.0 [facility] Comment on above: Performed By: #### L [id number] ####[facility] ([facility] [place] [address] Neutrophils (Bld) [#/Vol] 6.68 10*3/uL Normal 1.60-7.60 [facility] Comment on above: Performed By: #### L [id number] ####[facility] (BEAKER)[address] [place] [address] Neutrophils/100 WBC (Bld) 72.7 % High 40.0-72.0 [facility] Comment on above: Performed By: #### L [id number] ####[facility] ([facility] [place] [address] NRBC (PER 100 WBCS) BY AUTOMATED COUNT 0.0 % Normal 0 [facility] Comment on above: Performed By: #### L [id number] ####[facility] ([facility] [place] [address] PLATELETS (10*3/UL) IN BLOOD AUTOMATED COUNT 198 10*3/uL Normal 150-400 [facility] Comment on above: Performed By: #### L [id number] ####[facility] ([facility])[address] [place] [address] RBC (Bld) [#/Vol] 5.08 10*6/uL Normal 4.20-5.70 [facility] Comment on above: Performed By: #### L [id number] ####[facility] ([facility] [place] [address] WBC (Bld) [#/Vol] 9.20 10*3/uL Normal 4.00-10.60 [facility] Comment on above: Performed By: #### L [id number] ####[facility] ([facility] [place] [address] CONSULTon 08-19-2024 CONSULT Normal [facility] MAGNESIUMon 08-19-2024 Magnesium [Mass/Vol] 1.9 mg/dL Normal 1.9-2.7 [facility] Comment on above: Performed By: #### L [id number] ####[facility] (BEAKER)[address] [place] [address] PHOSPHORUSon 08-19-2024 Magnesium [Mass/Vol] 2.9 mg/dL Normal 2.5-5.0 [facility] Comment on above: Performed By: #### L [id number] ####[facility] ([facility])[address] [employer] [place] [address] POCT GLUCOSE METER UNSOLICIT ED RESULTSon 08-19-2024 Glucose [Mass/Vol] 239 mg/dL High 70-105 [facility] Comment on above: Order Comment: Waive d Testing in the ED is performed under the ED CLIA certificate #[id number]. Result Comment: [email or web address] Performed By: #### L [id number] ####[facility] ([facility])[address] [place] [address] Glucose [Mass/Vol] 251 mg/dL High 70-105 [facility] Comment on above: Order Comment: Waive d Testing in the ED is performed under the ED CLIA certificate #[id number]. Result Comment: [email or web address] Performed By: #### L [id number] ####[facility] ([facility])[address] [facility] [place] [address] Glucose [Mass/Vol] 185 mg/dL High 70-105 [facility] Comment on above: Order Comment: Waive d Testing in the ED is performed under the ED CLIA certificate #[id number]. Result Comment: [email or web address] Performed By: #### L [id number] ####[facility] ([employer])[address] [employer] [place] [address] TRIGLYCERIDESon 08-19-2024 FASTING? UNKNOWN Normal [facility] Comment on above: Performed By: #### L [id number] ####[facility] ([facility])[address] [place] [address] Magnesium [Mass/Vol] 192 mg/dL High 40-149 [facility] Comment on above: Result Comment: TRIG LYCERIDE REFERENCE RANGE:20 YEARS AND OLDER CARDIOVASCULAR RISKLESS THAN 150 mg/dL LOW [id number] TO 199 mg/dL BORDERLINE [id number] mg/dL AND GREATER HIGH RISK Performed By: #### L [id number] ####[facility] ([facility] [place] [address] ANTI-XA (HEPARIN LEVEL)on HEPARIN UNFRACTIONATED (U/ML) IN PPP BY CHROMOGENIC METHOD 0.50 IU/mL Normal 0.3-0.7 [facility] Comment on above: Result Comment: Tatyana roxaban and Apixaban will interfere with the anti Xa assay used to monitor UFH and LMWH. Performed By: #### L [id number] ####[facility] ([facility])[address] [place] [address] HEPARIN UNFRACTIONATED (U/ML) IN PPP BY CHROMOGENIC METHOD 0.60 IU/mL Normal 0.3-0.7 [facility] Comment on above: Result Comment: Tatyana roxaban and Apixaban will interfere with the anti Xa assay used to monitor UFH and LMWH. Performed By: #### L [id number] ####[facility] ([facility])[address] [place] [address] BASIC METABOLIC PANELon 07-22 Anion gap [Moles/Vol] 8 mmol/L Normal 7-20 [facility] Comment on above: Performed By: #### L [id number] ####[facility] ([facility])[address] [place] [address] Calcium [Mass/Vol] 8.7 mg/dL Normal 8.6-10.3 [facility] Comment on above: Performed By: #### L [id number] ####[facility] ([facility])[address] [place] [address] Chloride [Moles/Vol] 98 mmol/L Normal 98-107 [facility] Comment on above: Performed By: #### L [id number] ####[facility] ([facility])[address] [facility] [place] [address] CO2 [Moles/Vol] 41 mmol/L Critically high 21-31 [facility] Comment on above: Performed By: #### L [id number] ####[facility] ([facility])[address] [place] [address] Creatinine [Mass/Vol] 1.05 mg/dL Normal 0.70-1.30 [facility] Comment on above: Performed By: #### L [id number] ####[facility] ([facility])[address] [place] [address] GLOMERULAR FILTRATION RATE ML/MIN/1.73 SQ M.PREDICTED 78.8 mL/min/1.73m*2 Normal >60.0 [facility] Comment on above: Result Comment: The [facility]???s estimated glomerular filtration rate (eGFR) will [...] of individuals. Performed By: #### L [id number] ####[facility] ([facility])[address] [place] [address] Glucose [Mass/Vol] 201 mg/dL High 70-100 [facility] Comment on above: Performed By: #### L [id number] ####[facility] ([facility])[address] [place] [address] Potassium [Moles/Vol] 3.7 mmol/L Normal 3.5-5.1 [facility] Comment on above: Performed By: #### L [id number] ####[facility] ([facility])[address] [place] [address] Sodium [Moles/Vol] 143 mmol/L Normal 136-145 [facility] Comment on above: Performed By: #### L [id number] ####[facility] ([facility])[address] [place] [address] Urea nitrogen [Mass/Vol] 25 mg/dL Normal 7-25 [facility] Comment on above: Performed By: #### L [id number] ####[facility] ([facility])[address] [place] [address] UREA NITROGEN/CREATININE (MASS RATIO) IN SER/PLAS 23.8 Normal [facility] Comment on above: Performed By: #### L [id number] ####[facility] ([facility])[address] [place] [address] CBC WITH AUTO DIFFERENTIALon 08-18-2024 Basophils (Bld) [#/Vol] 0.03 10*3/uL Normal 0.00-0.20 [facility] Comment on above: Performed By: #### L [id number] ####[facility] ([facility])[address] [place] [address] Basophils/100 WBC (Bld) 0.3 % Normal 0.0-1.0 [facility] Comment on above: Performed By: #### L [id number] ####[facility] ([facility])[address] [place] [address] Eosinophils (Bld) [#/Vol] 0.45 10*3/uL Normal 0.00-0.50 [facility] Comment on above: Performed By: #### L [id number] ####[facility] ([facility])[address] [place] [address] Eosinophils/100 WBC (Bld) 5.0 % Normal 0.0-6.0 [facility] Comment on above: Performed By: #### L [id number] ####[facility] ([facility])[address] [place] [address] Erythrocyte distribution width (RBC) [Ratio] 15.5 % High 11.5-15.0 [facility] Comment on above: Performed By: #### L [id number] ####[facility] ([facility])[address] [place] [address] ERYTHROCYTE MEAN CORPUSCULAR HEMOGLOBIN CONCENTRATION (G/DL) BY AUTOMATED 29.7 g/dL Low 32.0-35.0 [facility] Comment on above: Performed By: #### L [id number] ####[facility] ([facility])[address] [place] [address] Hematocrit (Bld) [Volume fraction] 49.5 % Normal 39.0-55.0 [facility] Comment on above: Performed By: #### L [id number] ####[facility] (BEAKER)[address] [place] [address] Hemoglobin (Bld) [Mass/Vol] 14.7 g/dL Normal 13.0-17.0 [facility] Comment on above: Performed By: #### L [id number] ####[facility] (BEAKER)[address] [place] [address] Immature granulocytes (Bld) [#/Vol] 0.05 10*3/uL Normal 0.00-0.20 [facility] Comment on above: Performed By: #### L [id number] ####[facility] ([facility] [place] [address] Immature granulocytes/100 WBC (Bld) 0.6 % Normal 0.0-1.0 [facility] Comment on above: Performed By: #### L [id number] ####[facility] (BEAKER)[address] [place] [address] Lymphocytes (Bld) [#/Vol] 0.93 10*3/uL Low 1.20-4.00 [facility] Comment on above: Performed By: #### L [id number] ####[facility] (BEAKER)[address] [place] [address] Lymphocytes/100 WBC (Bld) 10.4 % Low 20.0-45.0 [facility] Comment on above: Performed By: #### L [id number] ####[facility] (BEAKER)[address] [place] [address] MCH (RBC) [Entitic mass] 29.2 pg Normal 27.0-33.0 [facility] Comment on above: Performed By: #### L [id number] ####[facility] (BEAKER)[address] [place] [address] MCV (RBC) [Entitic vol] 98.2 fL High 82.0-98.0 [facility] Comment on above: Performed By: #### L [id number] ####[facility] ([facility] [place] [address] Monocytes (Bld) [#/Vol] 1.06 10*3/uL High 0.10-1.00 [facility] Comment on above: Performed By: #### L [id number] ####[facility] ([facility] [place] [address] Monocytes/100 WBC (Bld) 11.9 % Normal 5.0-12.0 [facility] Comment on above: Performed By: #### L [id number] ####[facility] ([facility])[address] [place] [address] Neutrophils (Bld) [#/Vol] 6.41 10*3/uL Normal 1.60-7.60 [facility] Comment on above: Performed By: #### L [id number] ####[facility] ([facility])[address] [place] [address] Neutrophils/100 WBC (Bld) 71.8 % Normal 40.0-72.0 [facility] Comment on above: Performed By: #### L [id number] ####[facility] ([facility] [place], [place] [id number] NRBC (PER 100 WBCS) BY AUTOMATED COUNT 0.0 % Normal 0 [facility] Comment on above: Performed By: #### L [id number] ####[facility] ([facility] [place] [address] PLATELETS (10*3/UL) IN BLOOD AUTOMATED COUNT 208 10*3/uL Normal 150-400 [facility] Comment on above: Performed By: #### L [id number] ####[facility] ([facility] [place] [address] RBC (Bld) [#/Vol] 5.04 10*6/uL Normal 4.20-5.70 [facility] Comment on above: Performed By: #### L [id number] ####[facility] ([facility])[address] [place] [address] WBC (Bld) [#/Vol] 8.93 10*3/uL Normal 4.00-10.60 [facility] Comment on above: Performed By: #### L [id number] ####[facility] ([facility])[address] [place] [address] CONSULTon 08-18-2024 CONSULT Normal [facility] MAGNESIUMon 08-18-2024 Magnesium [Mass/Vol] 2.1 mg/dL Normal 1.9-2.7 [facility] Comment on above: Performed By: #### L [id number] ####[facility] ([facility])[address] [place] [address] PHOSPHORUSon 08-18-2024 Magnesium [Mass/Vol] 2.9 mg/dL Normal 2.5-5.0 [facility] Comment on above: Performed By: #### L [id number] ####[facility] ([facility])[address] [place] [address] POCT GLUCOSE METER UNSOLICIT ED RESULTSon 08-18-2024 Glucose [Mass/Vol] 194 mg/dL High 70-105 [facility] Comment on above: Order Comment: Waive d Testing in the ED is performed under the ED CLIA certificate #[id number]. Result Comment: [email or web address] Performed By: #### L [id number] ####[facility] ([facility])[address] [place] [address] Glucose [Mass/Vol] 183 mg/dL High 70-105 [facility] Comment on above: Order Comment: Waive d Testing in the ED is performed under the ED CLIA certificate #[id number]. Result Comment: ezab [email or web address] Performed By: #### L [id number] ####[facility] ([facility] [place] [address] Glucose [Mass/Vol] 173 mg/dL High 70-105 [facility] Comment on above: Order Comment: Waive d Testing in the ED is performed under the ED CLIA certificate #[id number]. Result Comment: ezab [email or web address] Performed By: #### L [id number] ####[facility] ([facility] [place] [address] Glucose [Mass/Vol] 200 mg/dL High 70-105 [facility] Comment on above: Order Comment: Waive d Testing in the ED is performed under the ED CLIA certificate #[id number]. Result Comment: [email or web address] [email or web address] Performed By: #### L [id number] ####[facility] ([facility])[address] [place] [address] SPUTUM CULTUREon 08-18-2024 Clindamycin [Susc] <=0.5 Susceptible [facility] Comment on above: Performed By: #### L [id number] ####[facility] ([facility])[address] [place] [address] DAPTOmycin [Susc] <=1 Susceptible [facility] Comment on above: Performed By: #### L [id number] ####[facility] ([facility])[address] [place] [address] Linezolid [Susc] <=[address] [facility] Comment on above: Performed By: #### L [id number] ####[facility] ([facility])[address] [place] [address] Oxacillin [Susc] >2 [facility] Comment on above: Performed By: #### L [id number] ####[facility] ([facility] [place] [address] Tetracycline [Susc] <=0.5 Susceptible [facility] Comment on above: Performed By: #### L [id number] ####[facility] ([facility])[address] [place] [address] Trimethoprim+Sulfameth oxazole [Susc] <=0.5/9.5 Susceptible [facility] Comment on above: Performed By: #### L [id number] ####[facility] ([facility])[address] [place] [address] Vancomycin [Susc] <=0.5 Susceptible [facility] Comment on above: Performed By: #### L [id number] ####[facility] ([facility] [place] [address] TRIGLYCERIDESon 08-18-2024 FASTING? unknown [facility] Comment on above: Performed By: #### L [id number] ####[facility] ([facility])[address] [place] [address] Magnesium [Mass/Vol] 154 mg/dL High 40-149 [facility] Comment on above: Result Comment: TRIG LYCERIDE REFERENCE RANGE:20 YEARS AND OLDER CARDIOVASCULAR RISKLESS THAN 150 mg/dL LOW [id number] TO 199 mg/dL BORDERLINE [id number] mg/dL AND GREATER HIGH RISK Performed By: #### L [id number] ####[facility] ([facility])[address] [place] [address] 30on 08-17-2024 30 Normal [facility] ANTI-XA (HEPARIN LEVEL)on HEPARIN UNFRACTIONATED (U/ML) IN PPP BY CHROMOGENIC METHOD 0.86 IU/mL High 0.3-0.7 [facility] Comment on above: Result Comment: Tyler roxaban and Apixaban will interfere with the anti Xa assay used to monitor UFH and LMWH. Performed By: #### L [id number] ####[facility] ([facility])[address] [place] [address] HEPARIN UNFRACTIONATED (U/ML) IN PPP BY CHROMOGENIC METHOD >1.00 Critically high 0.3-0.7 [facility] Comment on above: Result Comment: Tatyana roxaban and Apixaban will interfere with the anti Xa assay used to monitor UFH and LMWH. Performed By: #### L [id number] ####[facility] ([facility])[address] [place] [address] HEPARIN UNFRACTIONATED (U/ML) IN PPP BY CHROMOGENIC METHOD >1.00 Critically high 0.3-0.7 [facility] Comment on above: Performed By: #### L [id number] ####[facility] ([facility])[address] [place] [address] APTTon 08-17-2024 ACTIVATED PARTIAL THROMBOPLASTIN TIME IN PPP BY COAGULATION ASSAY 99.6 Seconds High 25.0-35.0 [facility] Comment on above: Result Comment: Clin ical significance of the APTT is questionable in the presence of heparin. Performed By: #### L [id number] ####[facility] ([facility])[address] [facility] [place] [address] ACTIVATED PARTIAL THROMBOPLASTIN TIME IN PPP BY COAGULATION ASSAY 98.9 Seconds High 25.0-35.0 [facility] Comment on above: Result Comment: Clin ical significance of the APTT is questionable in the presence of heparin. Performed By: #### L [id number] ####[facility] ([facility])[address] [place] [address] B-TYPE NATRIURETIC PEPTIDEon 08-17-2024 Natriuretic peptide B (Bld) [Mass/Vol] 75 pg/mL Normal 0-100 [facility] Comment on above: Performed By: #### L [id number] ####[facility] ([facility])[address] [place] [address] BASIC METABOLIC PANELon 07-22 Anion gap [Moles/Vol] 9 mmol/L Normal 7-20 [facility] Comment on above: Performed By: #### L [id number] ####[facility] ([facility])[address] [place] [address] Calcium [Mass/Vol] 8.8 mg/dL Normal 8.6-10.3 [facility] Comment on above: Performed By: #### L [id number] ####[facility] ([facility])[address] [place] [address] Chloride [Moles/Vol] 97 mmol/L Low 98-107 [facility] Comment on above: Performed By: #### L [id number] ####[facility] ([facility] [place] [address] CO2 [Moles/Vol] 45 mmol/L Critically high 21-31 [facility] Comment on above: Performed By: #### L [id number] ####[facility] ([facility])[address] [place] [address] Creatinine [Mass/Vol] 0.93 mg/dL Normal 0.70-1.30 [facility] Comment on above: Performed By: #### L [id number] ####[facility] ([facility])[address] [place] [address] GLOMERULAR FILTRATION RATE ML/MIN/1.73 SQ M.PREDICTED 91.1 mL/min/1.73m*2 Normal >60.0 [facility] Comment on above: Result Comment: The [facility]???s estimated glomerular filtration rate (eGFR) will [...] of individuals. Performed By: #### L [id number] ####[facility] ([facility])[address] [place] [address] Glucose [Mass/Vol] 190 mg/dL High 70-100 [facility] Comment on above: Performed By: #### L [id number] ####[facility] ([facility] [place] [address] Potassium [Moles/Vol] 3.5 mmol/L Normal 3.5-5.1 [facility] Comment on above: Performed By: #### L [id number] ####[facility] ([facility] [place] [address] Sodium [Moles/Vol] 147 mmol/L High 136-[address] [facility] Comment on above: Performed By: #### L [id number] ####[facility] ([facility])[address] [place] [address] Urea nitrogen [Mass/Vol] 28 mg/dL High 7-25 [facility] Comment on above: Performed By: #### L [id number] ####[facility] ([facility])[address] [place] [address] UREA NITROGEN/CREATININE (MASS RATIO) IN SER/PLAS 30.1 Normal [facility] Comment on above: Performed By: #### L [id number] ####[facility] ([facility])[address] [place] [address] CBC WITH AUTO DIFFERENTIALon 08-17-2024 Basophils (Bld) [#/Vol] 0.02 10*3/uL Normal 0.00-0.20 [facility] Comment on above: Performed By: #### L [id number] ####[facility] ([facility])[address] [place] [address] Basophils/100 WBC (Bld) 0.2 % Normal 0.0-1.0 [facility] Comment on above: Performed By: #### L [id number] ####[facility] ([facility])[address] [place] [address] Eosinophils (Bld) [#/Vol] 0.20 10*3/uL Normal 0.00-0.50 [facility] Comment on above: Performed By: #### L [id number] ####[facility] ([facility])[address] [place] [address] Eosinophils/100 WBC (Bld) 2.4 % Normal 0.0-6.0 [facility] Comment on above: Performed By: #### L [id number] ####[facility] ([facility])[address] [place] [address] Erythrocyte distribution width (RBC) [Ratio] 15.3 % High 11.5-15.0 [facility] Comment on above: Performed By: #### L [id number] ####[facility] ([facility])[address] [place] [address] ERYTHROCYTE MEAN CORPUSCULAR HEMOGLOBIN CONCENTRATION (G/DL) BY AUTOMATED 30.0 g/dL Low 32.0-35.0 [facility] Comment on above: Performed By: #### L [id number] ####[facility] ([facility])[address] [place] [address] Hematocrit (Bld) [Volume fraction] 49.7 % Normal 39.0-55.0 [facility] Comment on above: Performed By: #### L [id number] ####[facility] ([facility])[address] [place] [address] Hemoglobin (Bld) [Mass/Vol] 14.9 g/dL Normal 13.0-17.0 [facility] Comment on above: Performed By: #### L [id number] ####[facility] ([facility])[address] [place] [address] Immature granulocytes (Bld) [#/Vol] 0.04 10*3/uL Normal 0.00-0.20 [facility] Comment on above: Performed By: #### L [id number] ####[facility] ([facility])[address] [place] [address] Immature granulocytes/100 WBC (Bld) 0.5 % Normal 0.0-1.0 [facility] Comment on above: Performed By: #### L [id number] ####[facility] ([facility])[address] [place] [address] Lymphocytes (Bld) [#/Vol] 0.87 10*3/uL Low 1.20-4.00 [facility] Comment on above: Performed By: #### L [id number] ####[facility] ([facility])[address] [place] [address] Lymphocytes/100 WBC (Bld) 10.5 % Low 20.0-45.0 [facility] Comment on above: Performed By: #### L [id number] ####[facility] ([facility])[address] [place] [address] MCH (RBC) [Entitic mass] 29.0 pg Normal 27.0-33.0 [facility] Comment on above: Performed By: #### L [id number] ####[facility] ([facility])[address] [place] [address] MCV (RBC) [Entitic vol] 96.9 fL Normal 82.0-98.0 [facility] Comment on above: Performed By: #### L [id number] ####[facility] ([facility])[address] [place] [address] Monocytes (Bld) [#/Vol] 1.21 10*3/uL High 0.10-1.00 [facility] Comment on above: Performed By: #### L [id number] ####[facility] ([facility])[address] [place] [address] Monocytes/100 WBC (Bld) 14.6 % High 5.0-12.0 [facility] Comment on above: Performed By: #### L [id number] ####[facility] ([facility])[address] [place] [address] Neutrophils (Bld) [#/Vol] 5.97 10*3/uL Normal 1.60-7.60 [facility] Comment on above: Performed By: #### L [id number] ####[facility] ([facility])[address] [place] [address] Neutrophils/100 WBC (Bld) 71.8 % Normal 40.0-72.0 [facility] Comment on above: Performed By: #### L [id number] ####[facility] ([facility])[address] [place], [place] [address] NRBC (PER 100 WBCS) BY AUTOMATED COUNT 0.0 % Normal 0 [facility] Comment on above: Performed By: #### L [id number] ####[facility] ([facility])[address] [place] [address] PLATELETS (10*3/UL) IN BLOOD AUTOMATED COUNT 210 10*3/uL Normal 150-400 [facility] Comment on above: Performed By: #### L [id number] ####[facility] ([facility])[address] [place] [address] RBC (Bld) [#/Vol] 5.13 10*6/uL Normal 4.20-5.70 [facility] Comment on above: Performed By: #### L [id number] ####[facility] ([facility])[address] [place] [address] WBC (Bld) [#/Vol] 8.31 10*3/uL Normal 4.00-10.60 [facility] Comment on above: Performed By: #### L [id number] ####[facility] ([facility])[address] [place] [address] MAGNESIUMon 08-17-2024 Magnesium [Mass/Vol] 2.2 mg/dL Normal 1.9-2.7 [facility] Comment on above: Performed By: #### L [id number] ####[facility] ([facility])[address] [place] [address] Magnesium [Mass/Vol] 1.8 mg/dL Low 1.9-2.7 [facility] Comment on above: Performed By: #### L [id number] ####[facility] ([facility])[address] [place] [address] Magnesium [Mass/Vol] 1.6 mg/dL Low 1.9-2.7 [facility] Comment on above: Performed By: #### L [id number] ####[facility] ([facility])[address] [place] [address] PHOSPHORUSon 08-17-2024 Magnesium [Mass/Vol] 3.2 mg/dL Normal 2.5-5.0 [facility] Comment on above: Performed By: #### L [id number] ####[facility] ([facility] [place] [address] POCT GLUCOSE METER UNSOLICIT ED RESULTSon 08-17-2024 Glucose [Mass/Vol] 184 mg/dL High 70-105 [facility] Comment on above: Order Comment: Waive d Testing in the ED is performed under the ED CLIA certificate #[id number]. Result Comment: umesh sheikh Performed By: #### L [id number] ####[facility] ([facility])[address] [facility] [address] Glucose [Mass/Vol] 191 mg/dL High 70-105 [facility] Comment on above: Order Comment: Waive d Testing in the ED is performed under the ED CLIA certificate #[id number]. Result Comment: [email or web address] [email or web address] Performed By: #### L [id number] ####[facility] ([facility])[address] [place] [address] POTASSIUMon 08-17-2024 Potassium [Moles/Vol] 3.8 mmol/L Normal 3.5-5.1 [facility] Comment on above: Performed By: #### L [id number] ####[facility] ([facility])[address] [place] [address] Potassium [Moles/Vol] 3.7 mmol/L Normal 3.5-5.1 [facility] Comment on above: Performed By: #### L [id number] ####[facility] ([facility])[address] [place] [address] PROTIME-INRon 08-17-2024 INR IN PPP BY COAGULATION ASSAY 1.19 High 0.90-1.10 [facility] Comment on above: Result Comment: ACCC [...] CHEST 1995;108:[id number]. Performed By: #### L [id number] ####[facility] ([employer])[address] [place] [address] PROTHROMBIN TIME (PT) IN PPP BY COAGULATION ASSAY 15.0 Seconds High 12.3-14.8 [facility] Comment on above: Performed By: #### L [id number] ####[facility] ([employer])[address] [place] [address] INR IN PPP BY COAGULATION ASSAY 1.19 High 0.90-1.10 [facility] Comment on above: Result Comment: ACCC [...] CHEST 1995;[id number]. Performed By: #### L [id number] ####[facility] [employer])[address] [place] [address] PROTHROMBIN TIME (PT) IN PPP BY COAGULATION ASSAY 15.1 Seconds High 12.3-14.8 [facility] Comment on above: Performed By: #### L [id number] ####[facility] ([facility])[address] [place] [address] TRIGLYCERIDESon 08-17-2024 FASTING? Unknown Normal [facility] Comment on above: Performed By: #### L [id number] ####[facility] ([facility])[address] [place] [address] Magnesium [Mass/Vol] 119 mg/dL Normal 40-149 [facility] Comment on above: Result Comment: TRIG LYCERIDE REFERENCE RANGE:20 YEARS AND OLDER CARDIOVASCULAR RISKLESS THAN 150 mg/dL LOW [id number] TO 199 mg/dL BORDERLINE [id number] mg/dL AND GREATER HIGH RISK Performed By: #### L [id number] ####[facility] ([facility])[address] [place] [address] TROPONIN Ion 08-17-2024 Troponin I.cardiac [Mass/Vol] 0.04 ng/mL Normal 0.00-0.04 [facility] Comment on above: Performed By: #### L [id number] ####[facility] ([facility])[address] [place] [address] Troponin I.cardiac [Mass/Vol] 0.04 ng/mL Normal 0.00-0.04 [facility] Comment on above: Performed By: #### L [id number] ####[facility] ([facility])[address] [place] [address] VANCOMYCIN, TROUGHon 025 VANCOMYCIN (UG/ML) IN SER/PLAS - TROUGH 23.6 ug/mL Critically high 5.0-20.0 [facility] Comment on above: Performed By: #### L [id number] ####[facility] ([facility])[address] [place] [address] BASIC METABOLIC PANELon 07-22 Anion gap [Moles/Vol] 11 mmol/L Normal 7-20 [facility] Comment on above: Performed By: #### L [id number] ####[facility] ([facility])[address] [place] [address] Calcium [Mass/Vol] 8.9 mg/dL Normal 8.6-10.3 [facility] Comment on above: Performed By: #### L [id number] ####[facility] ([facility] [place] [address] Chloride [Moles/Vol] 99 mmol/L Normal 98-107 [facility] Comment on above: Performed By: #### L [id number] ####[facility] ([facility] [place] [address] CO2 [Moles/Vol] 38 mmol/L High 21-31 [facility] Comment on above: Performed By: #### L [id number] ####[facility] ([facility] [place] [address] Creatinine [Mass/Vol] 1.10 mg/dL Normal 0.70-1.30 [facility] Comment on above: Performed By: #### L [id number] ####[facility] ([facility])[address] [place] [address] GLOMERULAR FILTRATION RATE ML/MIN/1.73 SQ M.PREDICTED 74.5 mL/min/1.73m*2 Normal >60.0 [facility] Comment on above: Result Comment: The [facility]???s estimated glomerular filtration rate (eGFR) will [...] of individuals. Performed By: #### L [id number] ####[facility] ([facility] [place] [address] Glucose [Mass/Vol] 202 mg/dL High 70-100 [facility] Comment on above: Performed By: #### L [id number] ####[facility] ([facility])[address] [place] [address] Potassium [Moles/Vol] 3.3 mmol/L Low 3.5-5.1 [facility] Comment on above: Performed By: #### L [id number] ####[facility] ([facility])[address] [place] [address] Sodium [Moles/Vol] 145 mmol/L Normal 136-145 [facility] Comment on above: Performed By: #### L [id number] ####[facility] ([facility])[address] [place] [address] Urea nitrogen [Mass/Vol] 38 mg/dL High 7-25 [facility] Comment on above: Performed By: #### L [id number] ####[facility] ([facility])[address] [place] [address] UREA NITROGEN/CREATININE (MASS RATIO) IN SER/PLAS 34.5 Normal [facility] Comment on above: Performed By: #### L [id number] ####[facility] ([facility])[address] [place] [address] CALCIUM, IONIZEDon CALCIUM IONIZED (MMOL/L) IN BLOOD Normal [facility] Comment on above: Result Comment: C^In calculable Performed By: #### C ALCIUM, IONIZED ####[facility] [id number] [place] [address] [place] CBC WITH AUTO DIFFERENTIALon 08-16-2024 Erythrocyte distribution width (RBC) [Ratio] 15.1 % High 11.5-15.0 [facility] Comment on above: Performed By: #### L [id number] ####[facility] ([facility] [place] [address] ERYTHROCYTE MEAN CORPUSCULAR HEMOGLOBIN CONCENTRATION (G/DL) BY AUTOMATED 30.9 g/dL Low 32.0-35.0 [facility] Comment on above: Performed By: #### L [id number] ####[facility] ([facility] [place] [address] Hematocrit (Bld) [Volume fraction] 52.1 % Normal 39.0-55.0 [facility] Comment on above: Performed By: #### L [id number] ####[facility] ([facility])[address] [place] [address] Hemoglobin (Bld) [Mass/Vol] 16.1 g/dL Normal 13.0-17.0 [facility] Comment on above: Performed By: #### L [id number] ####[facility] ([facility])[address] [place] [address] MCH (RBC) [Entitic mass] 29.4 pg Normal 27.0-33.0 [facility] Comment on above: Performed By: #### L [id number] ####[facility] ([facility])[address] [place] [address] MCV (RBC) [Entitic vol] 95.1 fL Normal 82.0-98.0 [facility] Comment on above: Performed By: #### L [id number] ####[facility] ([facility])[address] [place] [address] NRBC (PER 100 WBCS) BY AUTOMATED COUNT 0.0 % Normal 0 [facility] Comment on above: Performed By: #### L [id number] ####[facility] ([facility])[address] [place] [address] PLATELETS (10*3/UL) IN BLOOD AUTOMATED COUNT 243 10*3/uL Normal 150-400 [facility] Comment on above: Performed By: #### L [id number] ####[facility] ([facility])[address] [place] [address] RBC (Bld) [#/Vol] 5.48 10*6/uL Normal 4.20-5.70 [facility] Comment on above: Performed By: #### L [id number] ####[facility] ([facility])[address] [place] [address] WBC (Bld) [#/Vol] 9.57 10*3/uL Normal 4.00-10.60 [facility] Comment on above: Performed By: #### L [id number] ####[facility] ([facility])[address] [place] [address] CONSULTon 08-16-2024 CONSULT Normal [facility] CONSULT Normal [facility] CTA CHEST W IV CONTRASTon CTA CHEST W IV CONTRAST Invalid Interpretation Code [facility] MAGNESIUMon 08-16-2024 Magnesium [Mass/Vol] 1.9 mg/dL Normal 1.9-2.7 [facility] Comment on above: Performed By: #### L [id number] ####[facility] ([facility])[address] [place] [address] Magnesium [Mass/Vol] 1.7 mg/dL Low 1.9-2.7 [facility] Comment on above: Performed By: #### L [id number] ####[facility] ([facility])[address] [place] [address] MANUAL DIFFERENTIALon 2024 BASOPHILS (10*3/UL) IN BLOOD BY CALCULATION 0.02 10*3/uL Normal 0.00-0.20 [facility] Comment on above: Performed By: #### L [id number] ####[facility] ([facility])[address] [place] [address] BASOPHILS/100 LEUKOCYTES IN BLOOD BY AUTOMATED COUNT 0.2 % Normal 0.0-1.0 [facility] Comment on above: Performed By: #### L [id number] ####[facility] ([facility])[address] [place] [address] EOSINOPHILS (10*3/UL) IN BLOOD BY CALCULATION 0.10 10*3/uL Normal 0.00-0.50 [facility] Comment on above: Performed By: #### L [id number] ####[facility] ([facility])[address] [place] [address] EOSINOPHILS/100 LEUKOCYTES IN BLOOD BY AUTOMATED COUNT 1.0 % Normal 0.0-6.0 [facility] Comment on above: Performed By: #### L [id number] ####[facility] ([facility])[address] [place] [address] IMMATURE GRANULOCYTES (10*3/UL) IN BLOOD BY CALCULATION 0.06 10*3/uL Normal 0.00-0.20 [facility] Comment on above: Performed By: #### L [id number] ####[facility] ([facility])[address] [place] [address] IMMATURE GRANULOCYTES/100 LEUKOCYTES IN BLOOD BY AUTOMATED COUNT 0.6 % Normal 0.0-1.0 [facility] Comment on above: Performed By: #### L [id number] ####[facility] ([facility])[address] [place] [address] LYMPHOCYTES (10*3/UL) IN BLOOD BY CALCULATION 0.73 10*3/uL Low 1.20-4.00 [facility] Comment on above: Performed By: #### L [id number] ####[facility] ([facility])[address] [place] [address] LYMPHOCYTES/100 LEUKOCYTES IN BLOOD BY AUTOMATED COUNT 7.6 % Low 20.0-45.0 [facility] Comment on above: Performed By: #### L [id number] ####[facility] ([facility])[address] [place] [address] MONOCYTES (10*3/UL) IN BLOOD BY CALCUATION 1.52 10*3/uL High 0.10-1.00 [facility] Comment on above: Performed By: #### L [id number] ####[facility] ([facility])[address] [place] [address] MONOCYTES/100 LEUKOCYTES IN BLOOD BY AUTOMATED COUNT 15.9 % High 5.0-12.0 [facility] Comment on above: Performed By: #### L [id number] ####[facility] ([facility])[address] [place] [address] NEUTROPHILS (10*3/UL) IN BLOOD BY CALCULATION 7.1 10*3/uL Normal 1.6-7.6 [facility] Comment on above: Performed By: #### L [id number] ####[facility] ([facility])[address] [place] [address] NEUTROPHILS/100 LEUKOCYTES IN BLOOD BY AUTOMATED COUNT 74.7 % High 40.0-72.0 [facility] Comment on above: Performed By: #### L [id number] ####[facility] ([facility])[address] [place] [address] PHOSPHORUSon 08-16-2024 Magnesium [Mass/Vol] 3.8 mg/dL Normal 2.5-5.0 [facility] Comment on above: Performed By: #### L [id number] ####[facility] ([facility])[address] [place] [address] Magnesium [Mass/Vol] 1.8 mg/dL Low 2.5-5.0 [facility] Comment on above: Performed By: #### L [id number] ####[facility] ([facility])[address] [place] [address] POCT GLUCOSE METER UNSOLICIT ED RESULTSon 08-16-2024 Glucose [Mass/Vol] 189 mg/dL High 70-105 [facility] Comment on above: Order Comment: Waive d Testing in the ED is performed under the ED CLIA certificate #[id number]. Result Comment: ljon es Performed By: #### L [id number] ####[facility] ([facility])[address] [place] [address] Glucose [Mass/Vol] 205 mg/dL High 70-105 [facility] Comment on above: Order Comment: Waive d Testing in the ED is performed under the ED CLIA certificate #[id number]. Result Comment: [email or web address] l Performed By: #### L [id number] ####[facility] ([facility])[address] [place] [address] Glucose [Mass/Vol] 200 mg/dL High 70-105 [facility] Comment on above: Order Comment: Waive d Testing in the ED is performed under the ED CLIA certificate #[id number]. Result Comment: [email or web address] Performed By: #### L [id number] ####[facility] ([facility])[address] [place] [address] Glucose [Mass/Vol] 207 mg/dL High 70-105 [facility] Comment on above: Order Comment: Waive d Testing in the ED is performed under the ED CLIA certificate #[id number]. Result Comment: [email or web address] er Performed By: #### L [id number] ####[facility] ([facility])[address] [place] [address] POTASSIUMon 08-16-2024 Potassium [Moles/Vol] 3.3 mmol/L Low 3.5-5.1 [facility] Comment on above: Performed By: #### L [id number] ####[facility] ([facility])[address] [place] [address] Potassium [Moles/Vol] 3.5 mmol/L Normal 3.5-5.1 [facility] Comment on above: Performed By: #### L [id number] ####[facility] ([facility])[address] [place] [address] POTASSIUM, WHOLE BLOODon Potassium [Moles/Vol] 3.5 mmol/L Normal 3.5-5.1 [facility] Comment on above: Performed By: #### P OTASSIUM, WHOLE BLOOD ####[facility]PIR[facility] [id number] [place] [address] [place] SODIUM, WHOLE BLOODon 2024 SODIUM, WHOLE BLOOD Normal [facility] Comment on above: Result Comment: C^In calculable Performed By: #### S ODIUM, WHOLE BLOOD ####[facility]IR[facility] [id number] [place] [address] [place] TRIGLYCERIDESon 08-16-2024 FASTING? Unknown Normal [facility] Comment on above: Performed By: #### L [id number] ####[facility] ([facility])[address] [place] [address] Magnesium [Mass/Vol] 243 mg/dL High 40-149 [facility] Comment on above: Result Comment: TRIG LYCERIDE REFERENCE RANGE:20 YEARS AND OLDER CARDIOVASCULAR RISKLESS THAN 150 mg/dL LOW [id number] TO 199 mg/dL BORDERLINE [id number] mg/dL AND GREATER HIGH RISK Performed By: #### L [id number] ####[facility] ([facility])[address] [place] [address] 30on 08-15-2024 30 Normal [facility] 30 Normal [facility] BLOOD CULTUREon 08-15-2024 Bacteria identified Cx Nom (Bld) No growth at 5 days Normal [facility] Comment on above: Order Comment: From a different site than #1. Performed By: #### L [id number] ####[facility] ([facility])[address] [place] [address] Basophils Auto (Bld) [#/Vol] on 08-15-2024 Basophils (Bld) [#/Vol] Automated basophil count 0.0-0.1 [facility] Basophils/100 WBC Auto (Bld) on 08-15-2024 Basophils/100 WBC (Bld) Automated basophil % Low 0.2-2.0 [facility] CALCIUM, IONIZEDon CALCIUM IONIZED (MMOL/L) IN BLOOD 1.23 mmol/L Normal 1.15-1.33 [facility] Comment on above: Performed By: #### C ALCIUM, IONIZED ####[facility]IR[facility] [id number] [place] [address] [place] CBC WITH AUTO DIFFERENTIALon 08-15-2024 Basophils (Bld) [#/Vol] 0.01 10*3/uL Normal 0.00-0.20 [facility] Comment on above: Performed By: #### L [id number] ####[facility] ([facility])[address] [place] [address] Basophils/100 WBC (Bld) 0.1 % Normal 0.0-1.0 [facility] Comment on above: Performed By: #### L [id number] ####[facility] ([facility])[address] [place] [address] Eosinophils (Bld) [#/Vol] 0.01 10*3/uL Normal 0.00-0.50 [facility] Comment on above: Performed By: #### L [id number] ####[facility] ([facility] [place] [address] Eosinophils/100 WBC (Bld) 0.1 % Normal 0.0-6.0 [facility] Comment on above: Performed By: #### L [id number] ####[facility] ([facility])[address] [place] [address] Erythrocyte distribution width (RBC) [Ratio] 15.2 % High 11.5-15.0 [facility] Comment on above: Performed By: #### L [id number] ####[facility] ([facility] [place] [address] ERYTHROCYTE MEAN CORPUSCULAR HEMOGLOBIN CONCENTRATION (G/DL) BY AUTOMATED 33.8 g/dL Normal 32.0-35.0 [facility] Comment on above: Performed By: #### L [id number] ####[facility] ([facility] [place] [address] Hematocrit (Bld) [Volume fraction] 47.1 % Normal 39.0-55.0 [facility] Comment on above: Performed By: #### L [id number] ####[facility] ([facility])[address] [place] [address] Hemoglobin (Bld) [Mass/Vol] 15.9 g/dL Normal 13.0-17.0 [facility] Comment on above: Performed By: #### L [id number] ####[facility] ([facility])[address] [place] [address] Immature granulocytes (Bld) [#/Vol] 0.05 10*3/uL Normal 0.00-0.20 [facility] Comment on above: Performed By: #### L [id number] ####[facility] ([facility])[address] [facility] [place] [place] [address] Immature granulocytes/100 WBC (Bld) 0.7 % Normal 0.0-1.0 [facility] Comment on above: Performed By: #### L [id number] ####[facility] ([facility])[address] [place] [address] Lymphocytes (Bld) [#/Vol] 0.54 10*3/uL Low 1.20-4.00 [facility] Comment on above: Performed By: #### L [id number] ####[facility] ([facility])[address] [place] [address] Lymphocytes/100 WBC (Bld) 7.2 % Low 20.0-45.0 [facility] Comment on above: Performed By: #### L [id number] ####[facility] ([facility])[address] [place] [address] MCH (RBC) [Entitic mass] 31.8 pg Normal 27.0-33.0 [facility] Comment on above: Performed By: #### L [id number] ####[facility] ([facility])[address] [place] [address] MCV (RBC) [Entitic vol] 94.2 fL Normal 82.0-98.0 [facility] Comment on above: Performed By: #### L [id number] ####[facility] [facility] [place] [address] Monocytes (Bld) [#/Vol] 1.23 10*3/uL High 0.10-1.00 [facility] Comment on above: Performed By: #### L [id number] ####[facility] ([facility] [place] [address] Monocytes/100 WBC (Bld) 16.3 % High 5.0-12.0 [facility] Comment on above: Performed By: #### L [id number] ####[facility] ([facility])[address] [place] [address] Neutrophils (Bld) [#/Vol] 5.70 10*3/uL Normal 1.60-7.60 [facility] Comment on above: Performed By: #### L [id number] ####[facility] ([facility])[address] [place] [address] Neutrophils/100 WBC (Bld) 75.6 % High 40.0-72.0 [facility] Comment on above: Performed By: #### L [id number] ####[facility] ([facility])[address] [place] [address] NRBC (PER 100 WBCS) BY AUTOMATED COUNT 0.3 % High 0 [facility] Comment on above: Performed By: #### L [id number] ####[facility] ([facility])[address] [place] [address] PLATELETS (10*3/UL) IN BLOOD AUTOMATED COUNT 237 10*3/uL Normal 150-400 [facility] Comment on above: Performed By: #### L [id number] ####[facility] ([facility])[address] [place], [place] [address] RBC (Bld) [#/Vol] 5.00 10*6/uL Normal 4.20-5.70 [facility] Comment on above: Performed By: #### L [id number] ####[facility] ([facility])[address] [place], [place] [address] WBC (Bld) [#/Vol] 7.54 10*3/uL Normal 4.00-10.60 [facility] Comment on above: Performed By: #### L [id number] ####[facility] ([facility])[address] [place] [address] COMPREHENSIVE METABOLIC PANE Kris 08-15-2024 Albumin [Mass/Vol] 2.9 g/dL Low 3.5-5.7 [facility] Comment on above: Performed By: #### L [id number] ####[facility] ([facility])[address] [place] [address] ALP [Catalytic activity/Vol] 58 U/L Normal 34-104 [facility] Comment on above: Performed By: #### L [id number] ####[facility] ([facility] [place] [address] ALT [Catalytic activity/Vol] 21 U/L Normal 7-52 [facility] Comment on above: Performed By: #### L [id number] ####[facility] ([facility])[address] [place] [address] Anion gap [Moles/Vol] 13 mmol/L Normal 7-20 [facility] Comment on above: Performed By: #### L [id number] ####[facility] ([facility])[address] [place] [address] AST [Catalytic activity/Vol] 29 U/L Normal 13-39 [facility] Comment on above: Performed By: #### L [id number] ####[facility] ([facility])[address] [place] [address] Bilirubin [Mass/Vol] 1.0 mg/dL Normal 0.3-1.0 [facility] Comment on above: Performed By: #### L [id number] ####[facility] ([facility])[address] [place] [address] Calcium [Mass/Vol] 8.2 mg/dL Low 8.6-10.3 [facility] Comment on above: Performed By: #### L [id number] ####[facility] [place] [address] Chloride [Moles/Vol] 90 mmol/L Low 98-107 [facility] Comment on above: Performed By: #### L [id number] ####[facility] ([facility])[address] [place] [address] CO2 [Moles/Vol] 32 mmol/L High 21-31 [facility] Comment on above: Performed By: #### L [id number] ####[facility] ([facility])[address] [place] [address] Creatinine [Mass/Vol] 1.17 mg/dL Normal 0.70-1.30 [facility] Comment on above: Performed By: #### L [id number] ####[facility] ([facility])[address] [place] [address] GLOMERULAR FILTRATION RATE ML/MIN/1.73 SQ M.PREDICTED 69.2 mL/min/1.73m*2 Normal >60.0 [facility] Comment on above: Result Comment: [facility]???s estimated glomerular filtration rate (eGFR) will [...] of individuals. Performed By: #### L [id number] ####[facility] ([facility])[address] [place] [address] Glucose [Mass/Vol] 219 mg/dL High 70-100 [facility] Comment on above: Performed By: #### L [id number] ####[facility] ([facility])[address] [place] [address] Potassium [Moles/Vol] 4.0 mmol/L Normal 3.5-5.1 [facility] Comment on above: Performed By: #### L [id number] ####[facility] ([facility])[address] [place] [address] Protein [Mass/Vol] 5.5 g/dL Low 6.0-8.3 [facility] Comment on above: Performed By: #### L [id number] ####[facility] ([facility])[address] [place] [address] Sodium [Moles/Vol] 131 mmol/L Low 136-145 [facility] Comment on above: Performed By: #### L [id number] ####[facility] ([facility])[address] [place] [address] Urea nitrogen [Mass/Vol] 42 mg/dL High 7-25 [facility] Comment on above: Performed By: #### L [id number] ####[facility] ([facility])[address] [place] [address] UREA NITROGEN/CREATININE (MASS RATIO) IN SER/PLAS 35.9 Normal [facility] Comment on above: Performed By: #### L [id number] ####[facility] ([facility])[address] [place] [address] Eosinophils/100 WBC Auto (Bl d)on 08-15-2024 Eosinophils/100 WBC (Bld) Automated eosinophil % Low 0.9-7.0 [facility] Erythrocyte distribution wid th Auto (RBC) [Ratio]on 08-15-2024 Erythrocyte distribution width (RBC) [Ratio] Erythrocyte distribution width [Ratio] by Automated count High 11.0-15.0 [facility] Estimated glomerular filtrat ion rate (GFR) non- Americanon 08-15-2024 GFR/1.73 sq M.predicted among non-blacks MDRD (S/P/Bld) [Vol rate/Area] Estimated glomerular filtration rate (GFR) non- Low >=60 mL/min/1.73m 2 [facility] Globulin Calc (S) [Mass/Vol] on 08-15-2024 Globulin (S) [Mass/Vol] Serum globulin measurement by calculation (mass/volume) [facility] HEMOGLOBIN A1Con 08-15-2024 Glucose [Mass/Vol] 189 mg/dL Normal [facility] Comment on above: Performed By: #### L [id number] ####[facility] ([facility])[address] [place] [address] HbA1c (Bld) [Mass fraction] 8.2 % High 4.0-6.0 [facility] Comment on above: Performed By: #### L [id number] ####[facility] ([facility])[address] [place] [address] HPon 08-15-2024 HP Normal [facility] Hematocrit Auto (Bld) [Volum e fraction]on 08-15-2024 Hematocrit (Bld) [Volume fraction] Hematocrit [Volume Fraction] of Blood by Automated count 42.0-54.0 [facility] Hemoglobin [Mass/volume] in Bloodon 08-15-2024 Hemoglobin (Bld) [Mass/Vol] Hemoglobin [Mass/volume] in Blood 14.0-18.0 [facility] LIPASEon 08-15-2024 LIPASE (U/L) IN SER/PLAS 28 U/L Normal 11-82 [facility] Comment on above: Result Comment: M-CH EMISTRY SPECIMEN MODERATELY HEMOLYZED RESULTS MAY NOT BE ACCURATE Performed By: #### L [id number] ####[facility] ([facility]AKER)[address] [place] [address] Laboratory - Chemistry and C hemistry - challengeon 08-15-2024 HCO3 (Bld) [Moles/Vol] 34.7 mmol/L High 22.0-26.0 [facility] Albumin [Mass/Vol] 2.6 g/dL Low 3.4-5.0 [facility] ALP [Catalytic activity/Vol] 81 U/L 46-116 [facility] ALT [Catalytic activity/Vol] 37 U/L 16-63 [facility] AST [Catalytic activity/Vol] 28 U/L 15-37 [facility] Bilirubin [Mass/Vol] 1.2 mg/dL High 0.2-1.0 [facility] Calcium [Mass/Vol] 9.2 mg/dL 8.5-10.1 [facility] Chloride [Moles/Vol] 101 mmol/L 98-107 [facility] CO2 [Moles/Vol] 35.4 mmol/L High 21.0-32.0 [facility] Creatinine [Mass/Vol] 1.66 mg/dL High 0.70-1.30 [facility] Health GFR/1.73 sq M.predicted MDRD (S/P/Bld) [Vol rate/Area] 51 mL/min/{1.73_m2} Low >=60 mL/min/1.73m 2 [facility] Glucose [Mass/Vol] 268 mg/dL High 74-106 [facility] Potassium [Moles/Vol] 3.8 mmol/L 3.5-5.1 [facility] Protein [Mass/Vol] 6.3 g/dL Low 6.4-8.2 [facility] Sodium [Moles/Vol] 143 mmol/L 136-145 [facility] Urea nitrogen [Mass/Vol] 52.0 mg/dL High 7.0-18.0 [facility] Urea nitrogen/Creatinine [Mass ratio] 31.3 mg/mg [facility] Laboratory - Hematology and Cell countson 08-15-2024 Immature granulocytes/100 WBC (Bld) 0.8 % High 0.0-0.5 [facility] Leukocytes [#/volume] correc beatris for nucleated erythrocytes in Blood by Automated counon 08-15-2024 WBC corrected for nucl RBC Auto (Bld) [#/Vol] Leukocytes [#/volume] corrected for nucleated erythrocytes in Blood by Automated coun 4.0-11.0 [facility] Lymphocytes Auto (Bld) [#/Vo l]on 08-15-2024 Lymphocytes (Bld) [#/Vol] Lymphocytes [#/volume] in Blood by Automated count Low 1.2-3.8 [facility] Lymphocytes/100 WBC Auto (Bl d)on 08-15-2024 Lymphocytes/100 WBC (Bld) Lymphocytes/100 leukocytes in Blood by Automated count Low 20.5-60.0 [facility] MAGNESIUMon 08-15-2024 Magnesium [Mass/Vol] 1.6 mg/dL Low 1.9-2.7 [facility] Comment on above: Performed By: #### L [id number] ####[facility] (BEAKER)[address] [place] [address] MCH Auto (RBC) [Entitic mass ]on 08-15-2024 MCH (RBC) [Entitic mass] MCH [Entitic mass] by Automated count 25.9-34.0 [facility] MCHC Auto (RBC) [Mass/Vol]on 08-15-2024 MCHC (RBC) [Mass/Vol] MCHC [Mass/volume] by Automated count 29.9-35.2 [facility] MCV Auto (RBC) [Entitic vol] on 08-15-2024 MCV (RBC) [Entitic vol] MCV [Entitic volume] by Automated count 80.0-94.0 [facility] MRSA/MSSA DNA NASALon 2024 MRSA DNA Negative Normal Negative [facility] Comment on above: Order Comment: Testi [...] preclude nasal colonization. Performed By: #### L [id number] ####[facility] (BEAKER)[address] [place] [address] MSSA DNA Negative Normal Negative [facility] Comment on above: Order Comment: Testi [...] preclude nasal colonization. Performed By: #### L [id number] ####[facility] (BEAKER)[address] [place] [address] Monocytes Auto (Bld) [#/Vol] on 08-15-2024 Monocytes (Bld) [#/Vol] Automated blood monocyte count 0.3-0.8 [facility] Monocytes/100 WBC Auto (Bld) on 08-15-2024 Monocytes/100 WBC (Bld) Automated monocyte % 1.7-12.0 [facility] Neutrophils Auto (Bld) [#/Vo l]on 08-15-2024 Neutrophils (Bld) [#/Vol] Neutrophils [#/volume] in Blood by Automated count 1.4-6.5 [facility] Neutrophils/100 WBC Auto (Bl d)on 08-15-2024 Neutrophils/100 WBC (Bld) Automated neutrophil % High 43.0-75.0 [facility] No Panel Informationon 08-15 Avinash Test Positive POSITIVE [facility] Arterial Blood Base Excess 11.0 mmol/L High <2.0-2.0 [facility] Arterial Blood Oxygen Saturation 97.0 % [facility] Arterial Blood Partial Pressure CO2 47.8 mm[Hg] High 35.0-45.0 [facility] Arterial Blood Partial Pressure O2 81.0 mm[Hg] 80.0-100.0 [facility] Arterial Blood pH 7.469 High 7.350-7.450 [facility] Blood Gas PEEP 8 [facility] Blood Gas Sample Site RIGHT RADIAL F [facility] Blood Gas Set Respiration Rate 22 [facility] Blood Gas Tidal Volume 600 Fi [facility] Blood Gas Ventilator Mode AC/VC [facility] FiO2 90 % [facility] Oxygen Delivery Device VENT Fi [facility] Reference Lab Test #2 Result 13.8 [facility] Eosinophils # (Auto) 0.0 10 3/uL 0.0-0.7 [facility] Immature Granulocyte # (Auto) 0.06 10 3/uL High 0.00-0.03 [facility] PHOSPHORUSon 08-15-2024 Magnesium [Mass/Vol] 2.7 mg/dL Normal 2.5-5.0 [facility] Comment on above: Performed By: #### L [id number] ####[facility] (BEAKER)[address] [place] [address] POCT GLUCOSE METER UNSOLICIT ED RESULTSon 08-15-2024 Glucose [Mass/Vol] 249 mg/dL High 70-105 [facility] Comment on above: Order Comment: Waive d Testing in the ED is performed under the ED CLIA certificate #[id number]. Result Comment: [email or web address] [email or web address] Performed By: #### L [id number] ####[facility] (BEAKER)[address] [facility] [place] [address] Glucose [Mass/Vol] 217 mg/dL High 70-105 [facility] Comment on above: Order Comment: Waive d Testing in the ED is performed under the ED CLIA certificate #[id number]. Result Comment: [email or web address] Performed By: #### L [id number] ####[facility] (BEAKER)[address] [facility] [place] [address] Glucose [Mass/Vol] 233 mg/dL High 70-105 [facility] Comment on above: Order Comment: Waive d Testing in the ED is performed under the ED CLIA certificate #[id number]. Result Comment: [email or web address] Performed By: #### L [id number] ####[facility] (BEAKER)[address] [facility] [place] [address] POTASSIUM, WHOLE BLOODon Potassium [Moles/Vol] 3.4 mmol/L Low 3.5-5.1 [facility] Comment on above: Performed By: #### P OTASSIUM, WHOLE BLOOD ####[facility] [id number] [place] [address] [facility] Platelet mean volume Auto (B ld) [Entitic vol]on 08-15-2024 Platelet mean volume (Bld) [Entitic vol] Platelet mean volume [Entitic volume] in Blood by Automated count 9.5-13.5 [facility] Platelets Auto (Bld) [#/Vol] on 08-15-2024 Platelets (Bld) [#/Vol] Platelets [#/volume] in Blood by Automated count 150-450 [facility] RBC Auto (Bld) [#/Vol]on RBC (Bld) [#/Vol] Erythrocytes [#/volume] in Blood by Automated count 4.70-6.10 [facility] SODIUM, WHOLE BLOODon 2024 SODIUM, WHOLE BLOOD 136 Normal 136-145 [facility] Comment on above: Performed By: #### S ODIUM, WHOLE BLOOD ####[facility] [id number] [place] [address] [facility] Serum or plasma albumin/glob ulin mass ratioon 08-15-2024 Albumin/Globulin [Mass ratio] Serum or plasma albumin/globulin mass ratio [facility] Serum or plasma anion gap de terminationon 08-15-2024 Anion gap [Moles/Vol] Serum or plasma an ion gap determination [facility] TRIGLYCERIDESon 08-15-2024 FASTING? unknown Normal [facility] Comment on above: Order Comment: Monit or triglycerides while patient is on propofol. Consult Nutrition if greater than 500 mg/dL. Performed By: #### L [id number] ####[facility] ([facility])[address] [place] [address] Magnesium [Mass/Vol] 3920 mg/dL High 40-149 [facility] Comment on above: Order Comment: Monit or triglycerides while patient is on propofol. Consult Nutrition if greater than 500 mg/dL. Result Comment: TRIG LYCERIDE REFERENCE RANGE:20 YEARS AND OLDER CARDIOVASCULAR RISKLESS THAN 150 mg/dL LOW [id number] TO 199 mg/dL BORDERLINE [id number] mg/dL AND GREATER HIGH RISK Performed By: #### L [id number] ####[facility] ([facility])[address] [place] [address] TROPONIN Ion 08-15-2024 Troponin I.cardiac [Mass/Vol] 0.04 ng/mL Normal 0.00-0.04 [facility] Comment on above: Performed By: #### L [id number] ####[facility] ([facility])[address] [place] [address] URINALYSIS WITH MICROSCOPICo n 08-15-2024 BILIRUBIN, TOTAL PRESENCE IN URINE Negative Normal Negative [facility] Comment on above: Performed By: #### L [id number] ####[facility] ([facility])[address] [place] [address] Clarity (U) Clear Normal Clear [facility] Comment on above: Performed By: #### L [id number] ####[facility] ([facility])[address] [place] [address] Color (U) Colorless Normal Colorless, Yellow, Light-Yellow [facility] Comment on above: Performed By: #### L [id number] ####[facility] (BEAKER)[address] [place] [address] GLUCOSE (MG/DL) IN URINE Normal Normal Normal [facility] Comment on above: Performed By: #### L [id number] ####[facility] (BEAKER)[address] [place] [address] HEMOGLOBIN PRESENCE IN URINE Small Abnormal Negative [facility] Comment on above: Performed By: #### L [id number] ####[facility] (BEAKER)[address] [place] [address] Ketones Ql (U) Negative Normal Negative [facility] Comment on above: Performed By: #### L [id number] ####[facility] ([facility])[address] [place] [address] LEUKOCYTE ESTERASE PRESENCE IN URINE BY TEST STRIP Negative Normal Negative [facility] Comment on above: Performed By: #### L [id number] ####[facility] ([facility])[address] [place] [address] MUCUS (#/LPF) IN URINE SEDIMENT Occasional Normal None Seen, Occasional, Few [facility] Comment on above: Performed By: #### L [id number] ####[facility] (BEAKER)[address] [place] [address] NITRITE PRESENCE IN URINE Negative Normal Negative [facility] Comment on above: Performed By: #### L [id number] ####[facility] (BEAKER)[address] [place] [address] pH (U) 5.5 [pH] Normal 5.0-8.0 [facility] Comment on above: Performed By: #### L [id number] ####[facility] (BEAKER)[address] [place] [address] Protein (U) [Mass/Vol] Negative Normal Negative [facility] on above: Performed By: #### L [id number] ####[facility] (BEAKER)[address] [place] [address] RBC (#/HPF) IN URINE SEDIMENT 11-20 Abnormal None Seen, 0-2 [facility] Comment on above: Performed By: #### L [id number] ####[facility] (BEAKER)[address] [place] [address] Specific gravity (U) [Rel density] 1.011 Normal 1.010-1.030 [facility] Comment on above: Performed By: #### L [id number] ####[facility] [place] [address] SQUAMOUS EPITHELIAL CELLS (#/LPF) IN URINE SEDIMENT None Seen Normal None Seen, Occasional, Few [facility] Comment on above: Performed By: #### L [id number] ####[facility] (BEAKER)[address] [place] [address] UROBILINOGEN (MG/DL) IN URINE Normal Normal Normal [facility] Comment on above: Performed By: #### L [id number] ####[facility] ([facility])[address] [place] [address] WBC (LEUKOCYTE) (#/HPF) IN URINE SEDIMENT 3-5 Abnormal None Seen, 0-2 [facility] Comment on above: Performed By: #### L [id number] ####[facility] ([facility] [place] [address] Basophils Auto (Bld) [#/Vol] on 08-14-2024 Basophils (Bld) [#/Vol] Automated basophil count 0.0-0.1 [facility] Basophils/100 WBC Auto (Bld) on 08-14-2024 Basophils/100 WBC (Bld) Automated basophil % 0.2-2.0 [facility] Eosinophils/100 WBC Auto (Bl d)on 08-14-2024 Eosinophils/100 WBC (Bld) Automated eosinophil % Low 0.9-7.0 [facility] Erythrocyte distribution wid th Auto (RBC) [Ratio]on 08-14-2024 Erythrocyte distribution width (RBC) [Ratio] Erythrocyte distribution width [Ratio] by Automated count High 11.0-15.0 [facility] Estimated glomerular filtrat ion rate (GFR) non- Americanon 08-14-2024 GFR/1.73 sq M.predicted among non-blacks MDRD (S/P/Bld) [Vol rate/Area] Estimated glomerular filtration rate (GFR) non- Low >=60 mL/min/1.73m 2 [facility] Globulin Calc (S) [Mass/Vol] on 08-14-2024 Globulin (S) [Mass/Vol] Serum globulin measurement by calculation (mass/volume) [facility] Hematocrit Auto (Bld) [Volum e fraction]on 08-14-2024 Hematocrit (Bld) [Volume fraction] Hematocrit [Volume Fraction] of Blood by Automated count 42.0-54.0 [facility] Hemoglobin [Mass/volume] in Bloodon 08-14-2024 Hemoglobin (Bld) [Mass/Vol] Hemoglobin [Mass/volume] in Blood 14.0-18.0 [facility] Laboratory - Chemistry and C hemistry - challengeon 08-14-2024 HCO3 (Bld) [Moles/Vol] 30.8 mmol/L High 22.0-26.0 [facility] Albumin [Mass/Vol] 2.4 g/dL Low 3.4-5.0 [facility] ALP [Catalytic activity/Vol] 82 U/L 46-116 [facility] ALT [Catalytic activity/Vol] 39 U/L 16-63 [facility] AST [Catalytic activity/Vol] 24 U/L 15-37 [facility] Bilirubin [Mass/Vol] 1.1 mg/dL High 0.2-1.0 [facility] Calcium [Mass/Vol] 8.6 mg/dL 8.5-10.1 [facility] Chloride [Moles/Vol] 102 mmol/L 98-107 [facility] CO2 [Moles/Vol] 32.4 mmol/L High 21.0-32.0 [facility] Creatinine [Mass/Vol] 1.64 mg/dL High 0.70-1.30 [facility] GFR/1.73 sq M.predicted MDRD (S/P/Bld) [Vol rate/Area] 51 mL/min/{1.73_m2} Low >=60 mL/min/1.73m 2 [facility] Glucose [Mass/Vol] 194 mg/dL High 74-106 [facility] Potassium [Moles/Vol] 3.9 mmol/L 3.5-5.1 [facility] Protein [Mass/Vol] 5.8 g/dL Low 6.4-8.2 [facility] Sodium [Moles/Vol] 140 mmol/L 136-145 [facility] Urea nitrogen [Mass/Vol] 54.0 mg/dL High 7.0-18.0 [facility] Urea nitrogen/Creatinine [Mass ratio] 32.9 mg/mg [facility] Laboratory - Hematology and Cell countson 08-14-2024 Immature granulocytes/100 WBC (Bld) 0.8 % High 0.0-0.5 [facility] Leukocytes [#/volume] correc beatris for nucleated erythrocytes in Blood by Automated counon 08-14-2024 WBC corrected for nucl RBC Auto (Bld) [#/Vol] Leukocytes [#/volume] corrected for nucleated erythrocytes in Blood by Automated coun 4.0-11.0 [facility] Lymphocytes Auto (Bld) [#/Vo l]on 08-14-2024 Lymphocytes (Bld) [#/Vol] Lymphocytes [#/volume] in Blood by Automated count Low 1.2-3.8 [facility] Lymphocytes/100 WBC Auto (Bl d)on 08-14-2024 Lymphocytes/100 WBC (Bld) Lymphocytes/100 leukocytes in Blood by Automated count Low 20.5-60.0 [facility] MCH Auto (RBC) [Entitic mass ]on 08-14-2024 MCH (RBC) [Entitic mass] MCH [Entitic mass] by Automated count 25.9-34.0 [facility] MCHC Auto (RBC) [Mass/Vol]on 08-14-2024 MCHC (RBC) [Mass/Vol] MCHC [Mass/volume] by Automated count 29.9-35.2 [facility] MCV Auto (RBC) [Entitic vol] on 08-14-2024 MCV (RBC) [Entitic vol] MCV [Entitic volume] by Automated count High 80.0-94.0 [facility] Monocytes Auto (Bld) [#/Vol] on 08-14-2024 Monocytes (Bld) [#/Vol] Automated blood monocyte count 0.3-0.8 [facility] Monocytes/100 WBC Auto (Bld) on 08-14-2024 Monocytes/100 WBC (Bld) Automated monocyte % 1.7-12.0 [facility] Neutrophils Auto (Bld) [#/Vo l]on 08-14-2024 Neutrophils (Bld) [#/Vol] Neutrophils [#/volume] in Blood by Automated count 1.4-6.5 [facility] Neutrophils/100 WBC Auto (Bl d)on 08-14-2024 Neutrophils/100 WBC (Bld) Automated neutrophil % High 43.0-75.0 [facility] No Panel Informationon 08-14 Avinash Test Positive POSITIVE [facility] Arterial Blood Base Excess 6.2 mmol/L High <2.0-2.0 [facility] Arterial Blood Oxygen Saturation 93.3 % [facility] Arterial Blood Partial Pressure CO2 48.3 mm[Hg] High 35.0-45.0 [facility] Arterial Blood Partial Pressure O2 62.0 mm[Hg] Low 80.0-100.0 [facility] Arterial Blood pH 7.413 7.350-7.450 [facility] Blood Gas PEEP +8 [facility] Blood Gas Sample Site RIGHT RADIAL F [facility] Blood Gas Set Respiration Rate 22 [facility] Blood Gas Tidal Volume 600 Fi [facility] Blood Gas Ventilator Mode AC [facility] FiO2 100 % [facility] Oxygen Delivery Device VENT Fi [facility] Eosinophils # (Auto) 0.0 10 3/uL 0.0-0.7 [facility] Immature Granulocyte # (Auto) 0.05 10 3/uL High 0.00-0.03 [facility] Platelet mean volume Auto (B ld) [Entitic vol]on 08-14-2024 Platelet mean volume (Bld) [Entitic vol] Platelet mean volume [Entitic volume] in Blood by Automated count 9.5-13.5 [facility] Platelets Auto (Bld) [#/Vol] on 08-14-2024 Platelets (Bld) [#/Vol] Platelets [#/volume] in Blood by Automated count 150-450 [facility] RBC Auto (Bld) [#/Vol]on RBC (Bld) [#/Vol] Erythrocytes [#/volume] in Blood by Automated count 4.70-6.10 [facility] Serum or plasma albumin/glob ulin mass ratioon 08-14-2024 Albumin/Globulin [Mass ratio] Serum or plasma albumin/globulin mass ratio [facility] Serum or plasma anion gap de terminationon 08-14-2024 Anion gap [Moles/Vol] Serum or plasma an ion gap determination [facility] URINE CULTURE, ROUTINEon Bacteria identified Cx Nom (U) Urine Culture, Routine [facility] Bacteria identified Cx Nom (U) No growth [facility] Bacteria identified Cx Nom (U) Performed at: [facility] Bacteria identified Cx Nom (U) [address] [place] [address] [phone] [facility] Bacteria identified Cx Nom (U) Acid Blower: Tyron Saeed PhD, Phone: [phone] [facility] Basophils Auto (Bld) [#/Vol] on 04-08-2024 Basophils (Bld) [#/Vol] 0.1 10 3/uL 0.0-0.1 [facility] Basophils/100 WBC Auto (Bld) on 04-08-2024 Basophils/100 WBC (Bld) 0.4 % 0.2-2.0 [facility] Eosinophils/100 WBC Auto (Bl d)on 04-08-2024 Eosinophils/100 WBC (Bld) 1.7 % 0.9-7.0 [facility] Erythrocyte distribution wid th Auto (RBC) [Ratio]on 04-08-2024 Erythrocyte distribution width (RBC) [Ratio] 13.9 % 11.0-15.0 [facility] Estimated glomerular filtrat ion rate (GFR) non- Americanon 04-08-2024 GFR/1.73 sq M.predicted among non-blacks MDRD (S/P/Bld) [Vol rate/Area] mL/min/{1.73_m2} >=60 [facility] Hematocrit Auto (Bld) [Volum e fraction]on 04-08-2024 Hematocrit (Bld) [Volume fraction] 45.1 % 42.0-54.0 [facility] Hemoglobin [Mass/volume] in Bloodon 04-08-2024 Hemoglobin (Bld) [Mass/Vol] 14.7 g/dL 14.0-18.0 [facility] Kris 04-08-2024 L Specimen: [id number] Received: 04/09/24 Status: SOU Req Num: [id number] Spec Type: Surgical Subm Dr: Rc Curtis DPM, MS Tissues: A Extremity - Amputation, Non-Traumatic (R FOREFOOT) B Extremity - Amputation, Non-Traumatic (R FIRST METATARSEL) Procedures: HE/5, Gross/Micro L5/2, Decalcification/2 Age/ Patient Sex Location Account Attending Physician Tyler Mckinney W 63/M [facility] [id number] Rc Curtis DPM, MS SPEC NUM: [id number] RECD: 04/09/24 STATUS: [facility] REQ NUM: [id number] KATHIE: 04/08/[address]: Rc Curtis DPM, MS ENTERED: 04/09/[address] [facility] [address]: Ekta Heath SPEC TYPE: Surgical DEPT: ALEJANDRO JCAOBS ENTERED BY: [id number] RECV BY: [id number] ORDERED: HE/5, Gross/Micro L5/2, Decalcification/2 ORDERED: HE/5, [...] of the ulcerated lesion reveals -------- Specimen: [id number] Received: 04/09/24 Status: TAMI Colon Num: [id number] Spec Type: Surgical Subm Dr: Rc Curtis,DPM, MS Tissues: A Extremity - Amputation, Non-Traumatic (R FOREFOOT) B Extremity - Amputation, Non-Traumatic (R FIRST METATARSEL) Procedures: HE/5, Gross/Micro L5/2, Decalcification/2 -------- Patient: Tyler Mckinney [id number] (Continued) -------- Specimen: [id number] Received: 04/09/24 (Continued) Gross Description (Continued) Signed (signature on file) Genaro Zamora MD 04/19/24 1844 -------- Specimen: [id number] Received: 04/09/24 Status: TAMI Colon Num: [id number] Spec Type: Surgical Subm Dr: Rc Curtis,DPM, MS Tissues: A Extremity - Amputation, Non-Traumatic (R FOREFOOT) B Extremity - Amputation, Non-Traumatic (R FIRST METATARSEL) Procedures: HE/5, Gross/Micro L5/2, Decalcification/2 -------- Patient: Tyler Mckinney [id number] (Continued) -------- Specimen: [id number] Received: 04/09/24 (Continued) Gross Description (Continued) exposed bone. The lesion is abutting the soft tissue margin. The resection margin of the metatarsals are inked first blue, second green, third yellow, fourth orange, fifth red. Telegraph Office Manager sections are as follows: A1 soft tissue margin en face A2 first metatarsal bone margin en face, (submitted in decal before routine processing) A3 remaining metatarsal bone margins en face, (submitted in decal before routine processing) A4 patient relations representative section of the lesion with distal [...] performed supporting the above interpretation CPT Codes 96633 [id number] x2 -------- -------- Specimen: [id number] Received: 04/09/24 Status: TAMI Colon Num: [id number] Spec (more content not included)... Normal [facility] Laboratory - Chemistry and C hemistry - challengeon 04-08-2024 Calcium [Mass/Vol] 10.6 mg/dL High 8.5-10.1 [facility] Chloride [Moles/Vol] 98 mmol/L 98-107 [facility] CO2 [Moles/Vol] 34.6 mmol/L High 21.0-32.0 [facility] Creatinine [Mass/Vol] 1.03 mg/dL 0.70-1.30 [facility] GFR/1.73 sq M.predicted MDRD (S/P/Bld) [Vol rate/Area] mL/min/{1.73_m2} >=60 [facility] Glucose [Mass/Vol] 178 mg/dL High 74-106 [facility] Potassium [Moles/Vol] 4.4 mmol/L 3.5-5.1 [facility] Sodium [Moles/Vol] 135 mmol/L Low 136-145 [facility] Urea nitrogen [Mass/Vol] 16.0 mg/dL 7.0-18.0 [facility] Urea nitrogen/Creatinine [Mass ratio] 15.5 mg/mg [facility] Laboratory - Hematology and Cell countson 04-08-2024 Immature granulocytes/100 WBC (Bld) 1.1 % High 0.0-0.5 [facility] Leukocytes [#/volume] correc beatris for nucleated erythrocytes in Blood by Automated counon 04-08-2024 WBC corrected for nucl RBC Auto (Bld) [#/Vol] 13.3 10 3/uL High 4.0-11.0 [facility] Lymphocytes Auto (Bld) [#/Vo l]on 04-08-2024 Lymphocytes (Bld) [#/Vol] 1.7 10 3/uL 1.2-3.8 [facility] Lymphocytes/100 WBC Auto (Bl d)on 04-08-2024 Lymphocytes/100 WBC (Bld) 12.5 % Low 20.5-60.0 [facility] MCH Auto (RBC) [Entitic mass ]on 04-08-2024 MCH (RBC) [Entitic mass] 31.1 pg 25.9-34.0 [facility] MCHC Auto (RBC) [Mass/Vol]on 04-08-2024 MCHC (RBC) [Mass/Vol] 32.6 g/dL 29.9-35.2 [facility] MCV Auto (RBC) [Entitic vol] on 04-08-2024 MCV (RBC) [Entitic vol] 95.6 fL High 80.0-94.0 [facility] Monocytes Auto (Bld) [#/Vol] on 04-08-2024 Monocytes (Bld) [#/Vol] 1.0 10 3/uL High 0.3-0.8 [facility] Monocytes/100 WBC Auto (Bld) on 04-08-2024 Monocytes/100 WBC (Bld) 7.3 % 1.7-12.0 [facility] Neutrophils Auto (Bld) [#/Vo l]on 04-08-2024 Neutrophils (Bld) [#/Vol] 10.3 10 3/uL High 1.4-6.5 [facility] Neutrophils/100 WBC Auto (Bl d)on 04-08-2024 Neutrophils/100 WBC (Bld) 77.0 % High 43.0-75.0 [facility] No Panel InformationOrdered By: Rc Curtis on 04-08-2024 Acid Fast Smear [facility] AFB Specimen Processing [facility] Anaerobic Cult, Extended Incub [facility] Tissue Culture [facility] No Panel Informationon 04-08 Fungal Smear Result \R\ Fungus Stain [facility] Gram Stain Result 1 \R\ Gram Stain Result [facility] Miscellaneous Test Comment See comment [facility] Comment on above: Specimen Source: ELENA TRT - Foot Right - Foot Rt - 604.000 Eosinophils # (Auto) 0.2 10 3/uL 0.0-0.7 [facility] Immature Granulocyte # (Auto) 0.15 10 3/uL High 0.00-0.03 [facility] Platelet mean volume Auto (B ld) [Entitic vol]on 04-08-2024 Platelet mean volume (Bld) [Entitic vol] 9.8 fL 9.5-13.5 [facility] Platelets Auto (Bld) [#/Vol] on 04-08-2024 Platelets (Bld) [#/Vol] 482 10 3/uL High 150-450 [facility] RBC Auto (Bld) [#/Vol]on RBC (Bld) [#/Vol] 4.72 10 6/uL 4.70-6.10 [facility] Serum or plasma anion gap de terminationon 04-08-2024 Anion gap [Moles/Vol] 6.8 mmol/L [facility] ALL CBC WITH AUTO DIFFon BASOPHILS ABSOLUTE AUTO 0.1 [facility] Basophils/100 WBC (Bld) 0.6 % 0.2 - 2.0 % [facility] Eosinophils/100 WBC (Bld) 2.1 % 0.9 - 7.0 % [facility] Erythrocyte distribution width (RBC) [Ratio] 14.0 % 11.0 - 15.0 % [facility] Hematocrit (Bld) [Volume fraction] 41.9 % Low 42.0 - 54.0 % [facility] Hemoglobin (Bld) [Mass/Vol] 13.7 g/dL Low 14.0 - 18.0 g/dL [facility] IMMATURE GRANULOCYTES ABS AUTO 0.46 High [facility] Immature granulocytes/100 WBC (Bld) 2.9 % High 0.0 - 0.5 % [facility] Interpretation and review of laboratory results Abnormal [facility] LYMPHOCYTES ABSOLUTE AUTO 2.3 [facility] Lymphocytes/100 WBC (Bld) 14.7 % Low 20.5 - 60.0 % [facility] MCH (RBC) [Entitic mass] 31.5 pg 25.9 - 34.0 pg [facility] MCHC (RBC) [Mass/Vol] 32.7 g/dL 29.9 - 35.2 g/dL [facility] MCV (RBC) [Entitic vol] 96.3 fL High 80.0 - 94.0 fL [facility] MONOCYTES ABSOLUTE AUTO 1.2 High [facility] Monocytes/100 WBC (Bld) 7.8 % 1.7 - 12.0 % [facility] NEUTROPHILS ABSOLUTE AUTO 11.4 High [facility] Neutrophils/100 WBC (Bld) 71.9 % 43.0 - 75.0 % [facility] Platelet mean volume (Bld) [Entitic vol] 10.2 fL 9.5 - 13.5 fL [facility] TBH EO # 0.3 [facility] TBH PLT 475 High [facility] TB RBC 4.35 Low [facility] TBH WBC 15.8 High [facility] CLINISYNC [facility] Kris 03-29-2024 L Specimen: [id number] Received: 03/29/246706 Status: [facility] Num: [id number] Spec Type: Surgical Subm Dr: Rc Curtis,DPM, MS Tissues: A Bone Fragments - Other than Path Fracture (R 1 METARSAL BONE) Procedures: HE, Gross/Micro L3, Decalcification Age/ Patient Sex Location Account Attending Physician Tyler Mckinney W 63/M LABELL [id number] Rc Curtis DPM, MS SPEC NUM: [id number] RECD: 03/29/24 STATUS: TAMI COLON NUM: [id number] KATHIE: 03/29/[address]: Rc Curtis DPM, MS ENTERED: 03/29/[address] [facility] [address]: Ekta Heath SPEC TYPE: Surgical DEPT: ALEJANDRO JACOBS ENTERED BY: [id number] RECV BY: [id number] ORDERED: HE, Gross/Micro L3, Decalcification ORDERED: HE, [...] performed supporting the above interpretation -------- Specimen: [id number] Received: 03/29/24 Status: TAMI Darlene Num: [id number] Spec Type: Surgical Subm Dr: Rc Curtis DPM, MS Tissues: A Bone Fragments - Other than Path Fracture (R 1 METARSAL BONE) Procedures: HE, Gross/Micro L3, Decalcification -------- Patient: Tyler Mckinney [id number] (Continued) -------- Specimen: [id number] Received: 03/29/24 (Continued) Signed (signature on file) Genaro Zamora MD 04/05/241707 -------- Specimen: [id number] Received: 03/29/24 Status: TAMI Colon Num: [id number] Spec Type: Surgical Subm Dr: Rc Curtis,DPM, MS Tissues: A Bone Fragments - Other than Path Fracture (R 1 METARSAL BONE) Procedures: DUNCAN, Gross/Micro L3, Decalcification -------- Patient: Tyler Mckinney [id number] (Continued) -------- Specimen: [id number] Received: 03/29/24 (Continued) CPT Codes [id number] -------- -------- Specimen: [id number] Received: 03/29/24 Status: TAMI Colon Num: [id number] Spec Type: Surgical Subm Dr: cR Curtis,DPShantell, MS Tissues: A Bone Fragments - Other than Path Fracture (R 1 METARSAL BONE) Procedures: DUNCAN, Gross/Micro L3, Decalcification -------- Patient: Tyler Mckinney [id number] (Continued) -------- Signed (signature on file) Genaro Zamora MD 04/05/24 1708 Normal [facility] XR FOOT LT [...] Sukhdev PARKS Date: 2022-07-14 23:08 Normal [facility] GLYCOHEMOGLOBIN A1Con 2021 ADA RECOMMENDATION SEE BELOW Normal [facility] Comment on above: Result Comment: ADA RECOMMENDED LIMIT 4.0 - 6.0 ADA THERAPEUTIC TARGET < 7.0 ACTION SUGGESTED > 7.0 Performed By: #### A 1C #### [facility] [address] [address] [address] Jennifer Zamora Glucose [Mass/Vol] 212 mg/dL Normal [facility] Comment on above: Performed By: #### A 1C #### [facility] [address] [address] [address] Jennifer Zamora HbA1c (Bld) [Mass fraction] 9.0 % Critically high 4.5-6.2 [facility] Comment on above: Performed By: #### A 1C #### [facility] [address] [address] [address] Jennifer Zamora PROF 14(COMP METB)on 022 Albumin [Mass/Vol] 3.4 g/dL Normal 3.4-5.0 [facility] Comment on above: Performed By: #### C MP #### [facility] [address] [place] [address] Dr. Jennifer Zamora Albumin/Globulin [Mass ratio] 0.9 {ratio} Normal [facility] Comment on above: Performed By: #### C MP #### [facility] [address] [address] [address] Jennifer Zamora ALP [Catalytic activity/Vol] 108 U/L Normal 46-116 [facility] Comment on above: Performed By: #### C MP #### [facility] [address] [place] [address] Dr. Jennifer Zamora ALT [Catalytic activity/Vol] 35 U/L Normal 16-63 [facility] Comment on above: Performed By: #### C MP #### [facility] [address] [place] [address] Dr. Jennifer Zamora Anion gap [Moles/Vol] 7.0 mmol/L Normal [facility] Comment on above: Performed By: #### C MP #### [facility] [address] [place] [address] Dr. Jennifer Zamora AST [Catalytic activity/Vol] 11 U/L Critically low 15-37 [facility] Comment on above: Performed By: #### C MP #### [facility] [address] [place] [address] Dr. Jennifer Zamora Bilirubin [Mass/Vol] 0.7 mg/dL Normal 0.2-1.0 [facility] Comment on above: Performed By: #### C MP #### [facility] [address] [place] [address] Dr. Jennifer Zamora Calcium [Mass/Vol] 8.9 mg/dL Normal 8.5-10.1 [facility] Comment on above: Performed By: #### C MP #### [facility] [address] [place] [address] Dr. Jennifer Zamora Chloride [Moles/Vol] 100 mmol/L Normal 98-107 [facility] Comment on above: Performed By: #### C MP #### [facility] [address] [address] [address] Jennifer Zamora CO2 [Moles/Vol] 32.5 mmol/L Critically high 21.0-32.0 [facility] Comment on above: Performed By: #### C MP #### [facility] [address] [address] [address] Jennifer Zamora Creatinine [Mass/Vol] 1.05 mg/dL Normal 0.70-1.30 [facility] Comment on above: Performed By: #### C MP #### [facility] [address] [address] [address] Jennifer Zamora EGFR-AF BAHAMIAN >60 Normal >=60 [facility] Comment on above: Performed By: #### C MP #### [facility] [address] [place] [address] Dr. Jennifer Zamora EGFR-NON AF BAHAMIAN >60 Normal >=60 [facility] Comment on above: Performed By: #### C MP #### [facility] [address] [address] [address] Jennifer Zamora Globulin (S) [Mass/Vol] 3.7 g/dL Normal [facility] Comment on above: Performed By: #### C MP #### [facility] [address] [place] [address] Dr. Jennifer Zamora Glucose [Mass/Vol] 175 mg/dL Critically high 74-106 [facility] Comment on above: Performed By: #### C MP #### [facility] [address] [place] [address] Dr. Jennifer Zamora Potassium [Moles/Vol] 4.5 mmol/L Normal 3.5-5.1 [facility] Comment on above: Performed By: #### C MP #### [facility] [address] [address] [address] Jennifer Zamora Protein [Mass/Vol] 7.1 g/dL Normal 6.4-8.2 [facility] Comment on above: Performed By: #### C MP #### [facility] [address] [address] [address] Jennifer Zamora Sodium [Moles/Vol] 135 mmol/L Critically low 136-145 [facility] Comment on above: Performed By: #### C MP #### [facility] [address] [address] [address] Jennifer Zamora Urea nitrogen [Mass/Vol] 18.0 mg/dL Normal 7.0-18.0 [facility] Comment on above: Performed By: #### C MP #### [facility] [address] [address] [address] Jennifer Zamora Urea nitrogen/Creatinine [Mass ratio] 17.1 mg/mg Normal [facility] Comment on above: Performed By: #### C MP #### [facility] [address] [address] [address] Jennifer Zamora Vital Signs Date Time Vital Sign Value Performing Clinician Faci lity 02-01-2025 14:090400 Body height 180.34 cm Dara Eisenberg APRN Work Phone: [facility] 02-01-2025 14:090400 Body mass index (BMI) [Ratio] 41.7 kg/m2 Dara Eisenberg APRN Work Phone: [facility] 02-01-2025 14:09-0400 Body temperature 96.5 [degF] Dara Eisenberg APRN Work Phone: [facility] 02-01-2025 14:09-0400 Body weight 135.62 kg Dara Eisenberg APRN Work Phone: [facility] 02-01-2025 14:09-0400 Diastolic blood pressure 68 mm[Hg] Dara Eisenberg APRN Work Phone: [facility] 02-01-2025 14:090400 Heart rate 102 /min Dara Eisenberg APRN Work Phone: [facility] 02-01-2025 14:09-0400 SaO2% (BldA) [Mass fraction] 96 % Dara Eisenberg APRN Work Phone: [facility] 02-01-2025 14:09-0400 Systolic blood pressure 114 mm[Hg] Dara Eisenberg APRN Work Phone: [facility] 11-05-2024 10:260400 Body height 180.34 cm [facility] 11-05-2024 10:260400 Body mass index (BMI) [Ratio] 44.7 kg/m2 [facility] 11-05-2024 10:260400 Body weight 145.6 kg [facility] 11-05-2024 10:26040 Diastolic blood pressure 68 mm[Hg] [facility] 11-05-2024 10:260400 Heart rate 98 /min [facility] 11-05-2024 10:0400 Respiratory rate 14 /min [facility] 11-05-2024 10:26-0400 SaO2% (BldA) [Mass fraction] 90 % [facility] 11-05-2024 10:26-0400 Systolic blood pressure 128 mm[Hg] [facility] 05-03-2024 14:14-0400 Body height 180.34 cm ROWDY Eisenberg Work Phone: [facility] 05-03-2024 14:14-0400 Body mass index (BMI) [Ratio] 39.3 kg/m2 LEAD SHOP OPERATORFauzia Eisenberg Work Phone: [facility] 05-03-2024 14:14-0400 Body temperature 96.9 [degF] ROWDY Eisenberg Work Phone: [facility] 05-03-2024 14:14-0400 Body weight 128 kg ROWDY Eisenberg Work Phone: [facility] 05-03-2024 14:14-0400 Diastolic blood pressure 86 mm[Hg] ROWDY Eisenberg Work Phone: [facility] 05-03-2024 14:14-0400 Heart rate 108 /min LEAD SHOP OPERATORFauzia Diamond Faina Work Phone: [facility] 05-03-2024 14:14-0400 SaO2% (BldA) [Mass fraction] 92 % LEAD SHOP OPERATORFauzia Diamond Faina Work Phone: [facility] 05-03-2024 14:14-0400 Systolic blood pressure 142 mm[Hg] LEAD SHOP OPERATORFauzia Diamond Faina Work Phone: [facility] 04-05-2024 13:44-0400 Body height 180.34 cm DPM Rc Curtis Work Phone: [facility] 04-05-2024 13:44-0400 Body mass index (BMI) [Ratio] 39.6 kg/m2 DPM Rc Curtis Work Phone: [facility] 04-05-2024 13:44-0400 Body temperature 97.4 [degF] DPM Rc Curtis Work Phone: [facility] 04-05-2024 13:44-0400 Body weight 128.82 kg DPM Rc Curtis Work Phone: [facility] 04-05-2024 13:44-0400 Diastolic blood pressure 70 mm[Hg] DPM Rc Curtis Work Phone: [facility] 04-05-2024 13:44-0400 Heart rate 61 /min DPM Rc Curtis Work Phone: [facility] 04-05-2024 13:44-0400 SaO2% (BldA) [Mass fraction] 87 % DPM Rc Curtis Work Phone: [facility] 04-05-2024 13:44-0400 Systolic blood pressure 134 mm[Hg] DPShantell Curtis Work Phone: [facility] Encounters Encounter Date Encounter Type Care Provider Facility Start: 02-15-2025 ambulatory Helen Justi Facility: [facility] Start: 02-01-2025 End: 02-01-2025 ambulatory Dara Eisenberg APRN Work Phone: [facility] Work Phone: Start: 02-01-2025 End: 02-01-2025 Patient encounter procedure Dara Eisenberg APRN [facility] Work Phone: Start: 01-27-2025 Non-patient / Non-visit Angelic Gen [facility] Work Phone: Start: 01-24-2025 End: 01-26-2025 Evaluation and management of inpatient Ghassan Zepeda Noahkinsey Facility:[facility] Start: 01-24-2025 Emergency department patient visit Manuel Fletcher Facility:[facility] Start: 11-05-2024 End: 11-05-2024 ambulatory [facility] Work Phone: Start: 11-05-2024 End: 11-05-2024 Patient encounter procedure [facility] Work Phone: Start: 08-29-2024 Evaluation and management of inpatient MERRILL SAFI [facility] Start: 08-26-2024 Evaluation and management of inpatient BILL HORANI [facility] Start: 08-24-2024 Evaluation and management of inpatient PALOMO CADENCE [facility] Start: 08-24-2024 Evaluation and management of inpatient PALOMO CADENCE [facility] Start: 08-21-2024 [facility] Start: 08-21-2024 Evaluation [facility] Start: 08-20-2024 Evaluation and management of inpatient RUDY [facility] Start: 08-20-2024 Evaluation and management of inpatient RUDY [facility] Start: 08-19-2024 Evaluation and management of inpatient RUDY [facility] Start: 08-17-2024 Evaluation and management of inpatient RUDY [facility] Start: 08-16-2024 Evaluation and management of inpatient RUDY [facility] Start: 08-16-2024 Evaluation and management of inpatient RUDY [facility] Start: 08-15-2024 Evaluation and management of inpatient HUGO PRAJAPATI [facility] Start: 08-15-2024 End: 09-09-2024 Evaluation and management of inpatient SHAIKH MONO [facility] Start: 08-15-2024 Non-patient / Non-visit [facility] Work Phone: Start: 08-14-2024 Non-patient / Non-visit [facility] Work Phone: Start: 08-10-2024 End: 08-12-2024 Clinisync Result Encounter Shaikh Mono JARRETT Work Phone: [facility] Unsolicited Start: 08-10-2024 End: 08-12-2024 Clinisync Result Encounter Shaikh Mono JARRETT Work Phone: [facility] Unsolic[facility] Start: 05-03-2024 End: 05-03-2024 ambulatory ROWDY Eisenberg Work Phone: [facility] Work Phone: Start: 05-03-2024 End: 05-03-2024 Patient encounter procedure ROWDY Eisenberg Work Phone: [facility] Phys[facility] Work Phone: Start: 04-12-2024 End: 04-12-2024 ambulatory ROWDY Eisenberg Work Phone: [facility] Work Phone: Start: 04-12-2024 End: 04-12-2024 Patient encounter procedure ROWDY Eisenberg Work Phone: [facility] Physician [facility] Work Phone: Start: 04-08-2024 End: 04-08-2024 ambulatory LEAD SHOP OPERATORFauzia Diamond Faina Work Phone: [facility] Work Phone: Start: 04-08-2024 End: 04-08-2024 Departed Referred ROWDY Diamond Faina Work Phone: [facility] Start: 04-08-2024 Non-patient / Non-visit LEAD SHOP OPERATORFauzia Diamond Faina Work Phone: [facility] Physician [facility] Work Phone: Start: 04-05-2024 End: 04-05-2024 Clinisync Result Encounter Shaikh Mono JARRETT Work Phone: [facility] Unsolic[facility] Start: 04-05-2024 End: 04-05-2024 Clinisync Result Encounter Shaikh Mono JARRETT Work Phone: [facility] Unsolic[facility] Start: 04-05-2024 End: 04-05-2024 ambulatory DPM Rc Curtis Work Phone: [facility] Work Phone: Start: 04-05-2024 End: 04-05-2024 Patient encounter procedure DPM Rc Curtis Work Phone: [facility] Physician [facility] Work Phone: Start: 03-29-2024 End: 03-29-2024 [facility] Work Phone: Start: 03-29-2024 End: 03-29-2024 Departed Referred DPM Rc Curtis Work Phone: [facility] Start: 01-26-2024 Non-patient / Non-visit DPM Rc Curtis Work Phone: [facility] Work Phone: Start: 07-14-2022 End: 07-15-[address] EDELMIRA SANTILLAN Facility:[facility] Start: 05-13-2022 End: 05-14-[address] MADELEINE MARCELINO Facility:[facility] Procedures Date Procedure Procedure Detail Performing Clinician Start: 08-10-2024 Bacteria identified in Urine by Culture Shaikh Mono JARRETT Work Phone: Start: 04-08-2024 Acid Fast Smear LEAD SHOP OPERATOR Elmer Eisenberg Work Phone: Start: 04-08-2024 AFB Specimen Processing ROWDY Eisenberg Work Phone: Start: 04-08-2024 Anaerobic Cult, Extended Incub RODWY Eisenberg Work Phone: Start: 04-08-2024 Tissue Culture [...] Acid Fast Culture Acid Fast Culture [facility] Payers Date Payer Category Payer Private Health Insurance [id number] 2024 Self-pay 2024 Medicare [id number] 1961 Self-pay [id number] 1961 Unknown [id number] 1959 Unknown [id number] 1958 Unknown [id number] 1958 Unknown [id number] [id number] .593 1958 Unknown [id number] [id number] .727 1958 Unknown [id number] 2.16.840.1.697618.3.579.2 .727 1958 Unknown [id number] 2.16.840.1.107006.3.579.2 .727 1958 Unknown [id number] 2.16.840.1.797021.3.579.2 .727 1958 Unknown [id number] 2.16.840.1.850844.3.579.2 .72 1958 Unknown [id number] 2.16.840.1.558958.3.579.2 .72 1958 Unknown [id number] 2.16.840.1.390265.3.579.2 .72 1958 Unknown [id number] 2.16.840.1.959485.3.579.2 .72 1958 Unknown [id number] 2.16.840.1.062356.3.579.2 .727 Medicare [employer] [employer] [id number] Private Health Insurance [facility] [id number] Unknown [id number] [id number] .531 Unknown Regular Insurance [id number] Social History Date Type Detail Facility Tobacco smoking status [facility] Unknown if ever smoked [facility] Work Phone: Start: 1960 Sex Assigned At Male F [facility] Start: 04-05-2024 Tobacco smoking status NHIS Smoker (finding) [facility] Tobacco smoking status [facility] Tobacco smoking consumption unknown [facility] Start: 1960 Sex assigned at Not on file [facility] Gender identity Not on file [facility] Start: 11-05-2024 Sex Male (finding) [facility] Start: 04-05-2024 Tobacco smoking status PRIS Smokes tobacco daily (finding) [facility] Medical Equipment Procedure Code Equipment Code [...] Locations R1: This test was performed at: [facility], [address] [place] [address], [facility] , , [facility] Comment on above: Performed By: #### [id number] #### [facility] [address] [place] [id number] 01-31-2025 Note Microbiology PROCEDURE: Blood Culture Charcoal [...] Locations R1: This test was performed at: [facility], [address] [place] [address], [id number] , [place], [facility] Comment on above: Performed By: #### [id number] #### [facility] [facility] [address] [place] [id number] 01-26-2025 Note Patient Education - Text Atrial [...] signals of the heart. ??? An ambulatory biscuit packer to record your heart's activity for a [...] signs of a (more content not included)... 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 Patient was insistent on trying an zwuj-lod-rkroehi supplement that he stated would cure diabetes [...] his wounds and recommended continued follow-up with [place] [facility] where he receives care. Patient successfully passed a voiding trial and was voiding easily after removal of Brunson. Creatinine had improved from 1.4-0.8 on discharge. Medically stable for discharge home on 01/26/2025. Follow-up PCP in 7 to 10 days Continued care at [place] wound [facility] Referral sent to Dr. Rosen in [place] for endocrinology follow-up for better glucose control. Discussed this with patient and he was agreeable. Follow-up with [facility] anticoagulation clinic Medication changes Continue metoprolol [...] Completed -- 01/24/25 20:11:27 EDT Consult to Operations Vice President (Operations Vice President Consult) - Ordered -- 01/24/25 20:22:00 EDT, [...] & normal b (more content not included)... [facility] Comment on above: Result Comment: Elec tronically [...] signals of the heart. ??? An ambulatory biscuit packer to record your heart's activity for a [...] signs of a (more content not included)... [facility] 01-26-2025 Note Progress Note - Matt devi [...] Plan; TBD Please contact Pharmacy at ext. [phone] if there are any questions. [facility] 01-25-2025 Note Interdisciplinary No te - OT Pt is seen for OT evaluation. AMPA score: 16/24. Pt is agreeable only to sitting EOB, no further transfers or mobility and becomes very agitated due to BLE pain. Pt is below functional baseline for ADL performance. OT to follow for treatment. Recommending HH vs SNF at this time pending progress with treatment. [facility] 01-25-2025 Note Progress Note-Physic janae Assessment/Plan 01/25 [...] Orders Initial Hospital Care/Day Moderate 55 Minutes 62100 Sbsq Hospital Care/Day Moderate 35 Minutes 97439 2. Cellulitis of leg (L03.119: Cellulitis of [...] Monitoring on telemetry. Patient noncompliant with anticoagulation. [id number] score is 4. Reports that Eliquis dose [...] despite clear documentation from previous admission in [place] in August 2024. Reports that he stopped taking all of his diabetes medications. 8. Insulin dependent type 2 diabetes mellitus (E11.9: Type 2 diabetes mellitus without complications) A1c: 12.6 BGT ACHS with sliding scale insulin as needed Lantus 30 units nightly at home. Patient noncompliant. Tolerated 20units QHS 01/24, uptitrate to 30 units today. Goal glucose will be less than 180. detention (current) use of insulin (Z79.4: detention (current) use of insulin) Orders: acetaminophen, 975 [...] Capillary Glucose POC Cardiac Monitoring Consult to Operations Vice President Creatine Kinase (more content not included)... [facility] Comment on above: Result Comment: Elec tronically [...] list: All Problems Smoker / SNOMED CT 374037840 / Confirmed Added secondary to documentation in Social History. Tobacco use / SNOMED CT 5960990520 / Confirmed, Active Problems (2) Smoker Tobacco [...] an outpatient with the wound center in [place]. [facility] Comment on above: Result Comment: Elec tronically Signed By: Linda GONZALEZ, Sina Cruz\.br\Date and Time Signed: 01/25/25 12:56 EDT 01-25-2025 Note Interdisciplinary No te - PT PT Evaluation done this date. Pt. with on AM-PAC this date. He requires supervision to CGAx1 with all activity. Uses w/c and FWW at baseline. Recommend home with home health PT. [facility] 01-25-2025 Note Progress Note - Phar shandra [...] Plan; TBD Please contact Pharmacy at ext. [phone] if there are any questions. [facility] 01-24-2025 Note History and Physical Basic Information [...] would be 75 kg. Given 2 L. [place] sepsis bolus will be 2.25 L, ever, [...] specifically. He follows with Dr. 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 He denies ever seeing vascular surgery. He follows with [place] wound [facility]. Stated that he has not [...] Normal alignment. Ext (more content not included)... [facility] Comment on above: Result Comment: Elec tronically [...] at home: Medicines ??? Take and use [id number]-[id number]-[id number] and prescription medicines and creams only as [...] limbs and wais (more content not included)... [facility] 01-24-2025 Note Progress Note-Nurse tourniquerts removed by puneet [facility] 01-24-2025 Note Progress Note - Matt devi [...] Plan; TBD Please contact Pharmacy at ext. [phone] if there are any questions. Spoke with Dr. Ding - he is ordering a lovenox bridge [facility] 01-24-2025 Note Progress Note-Nurse derrell stopped after 4 minutes for blood cultures that are new order. puneet informed. [facility] 01-24-2025 Note Progress Note-Nurse pt reportedly wears 5 lpm at ho me. d8id not say before. no saturating properly on at home O2 [facility] 11-05-2024 Evaluation note Diagnosis Onset Date Resolution [...] Venous insufficiency (chronic) (peripheral) acute October 10:18am [facility] Work Phone: [phone]) 359-663102-20-2025 [facility] 09-07-2024 NoteDISCHARGE PLANNING UPDATE Patient now agreeable to SNF placement. Insurance authorization submitted for [facility] in [place]. Awaiting insurance decision.[facility]02-[facility] 09-07-2024 [facility]-2025 [facility]-2025 [facility] 09-06-2024 [facility]-2025 [facility]-2025 [facility]Un[facility] 09-05-2024 [facility]-16-2025 [facility]Un[facility]-15-2025 [facility] 09-04-2024 [facility]-2025 [facility]-14-2025 [facility] 09-03-2024 [facility]-14-2025 [facility]-13-2025 [facility] 09-02-2024 [facility]Un[facility]02-13-2025 [facility]Un[facility]-13-2025 [facility] 09-01-2024 NoteDISCHARGE PLANNING UPDATE [facility] ([place], [place]) is [facility]. Per their admissions team, they are submitting to insurance for authorization today, 09/01.[facility] 09-01-2024 [facility]Un[facility]02-12-2025 [facility]-2025 [facility]Un[facility] 08-31-2024 [facility]-2025 [facility]-2025 [facility] 08-30-2024 [facility]-10-2025 [facility]-2025 [facility] 08-30-2024 [facility]Un[facility]-2025 [facility]Un[facility]02-08-2025 [facility] 08-28-2024 [facility]-2025 [facility]-2025 [facility] 08-27-2024 [facility]-2025 [facility]Un[facility]-06-2025 [facility] 08-26-2024 [facility]Un[facility]02-06-2025 [facility]Un[facility]02-05-2025 [facility]Un[facility] 08-25-2024 NoteUn[facility]02-05-2025 NoteUn[facility]02-05-2025 [facility]Un[facility] 08-24-2024 NoteUn[facility]02-04-2025 NoteUn[facility]02-04-2025 [facility]Un[facility] 08-24-2024 NotePatient is off unit for testing at this time.[facility]02-04-2025 NoteUn[facility]02-04-2025 Note [facility]02-04-2025 NoteUn[facility]02-04-2025 NoteUn[facility]02-04-2025 Note [facility]02-03-2025 NoteUn[facility]02-03-2025 [facility]Mer[facility]02-02-2025 Note [facility]02-01-2025 [facility]Mer[facility]02-01-2025 [facility]Mer[facility]01-31-2025 Note [facility]01-31-2025 [facility]Mer[facility]01-30-2025 NoteUn[facility]01-29-2025 Note [facility]01-28-2025 NoteUn[facility]01-28-2025 NoteUn[facility]01-27-2025 Note [facility]01-27-2025 NoteUn[facility]01-27-2025 NoteUnFisher-[facility] Medical CenterEvaluation noteNo assessment information availableVan [facility] Work Phone: Evaluation note* Diagnosis Onset Date Resolution Status Type 2 diabetes mellitus acu [facility] Work Phone: Evaluation note* Diagnosis Onset Date Resolution Status COPD (chronic obstructive pulmonary disease) acute Hypertension acute MRSA cellulitis of right foot acute Nicotine dependence acute Non-compliance acute Oxygen dependent acute Type 2 diabetes mellitus acu te Ulcer of right foot due to type 2 diabetes mellitus acute [facility] Work Phone: Evaluation note* Diagnosis Onset Date Resolution Status COPD (chronic obstructive pulmonary disease) acute Hypertension acute MRSA cellulitis of right foot acute Nicotine dependence acute Non-compliance acute Oxygen dependent acute Type 2 diabetes mellitus acu te Ulcer of right foot due to type 2 diabetes mellitus acute Acute osteomyelitis of foot acute [facility] Work [...] pain acute [facility] Work [...] diabetes mellitus acute November 05, 2024 10:18am [facility] Work Phone: Reason for referral (narrative)No reason for referral information availableSelect [facility] Work Phone: Summary Purpose Family History No [...] Amb Documentation January 27, 2025 8:33 am [facility] follow up February 01, 2025 2:06 pm [...] and content) DATE CREATED AUTHOR 07/19/2022 [facility] DATE CREATED AUTHOR AUTHOR'S ORGANIZ ATION 04/20/2024 [facility] DATE CREATED AUTHOR AUTHOR'S ORGANIZ ATION 10/20/2024 [facility] [place] DATE CREATED AUTHOR AUTHOR'S ORGANIZ ATION 01/28/2025 [facility] DATE CREATED AUTHOR AUTHOR'S ORGANIZ ATION 01/29/2025 [facility] DATE CREATED AUTHOR AUTHOR'S ORGANIZ ATION 01/30/2025 [facility] DATE CREATED AUTHOR AUTHOR'S ORGANIZ ATION 02/04/2025 [facility] DATE CREATED AUTHOR AUTHOR'S ORGANIZ ATION 02/17/2025 Atilio Hernández [facility] Care Teams (unrecognized sec tion and content) Team Status: Active Member Role Status Dates Magnolia Chavez LPN Attending Provider Active St art: January 26, 2024 Team Status: Inactive Member Role Status Dates Rc Curtis DPM MS Attending Provider Active Start: March 29, 2024 End: March 29, 2024 Team Status: Active Member Role Status Dates Dara Eisenberg APRN GRAIN UNLOADER-C Primary Care Provider Active Team Status: Inactive Member Role Status Dates Dara Eisenberg APRN GRAIN UNLOADER-C Primary Care Provider, Attending Provider Active Start: April 05, 2024 End: April 05, 2024 Team Status: Active Member Role Status Dates Dara Eisenberg APRN GRAIN UNLOADER-C Primary Care Provider, Attending Provider Active Start: April 08, 2024 Team Status: Inactive Member Role Status Dates Dara Eisenberg APRN GRAIN UNLOADER-C Primary Care Provider Active Start: March 212023 End: April 08, 2024 Rc Curtis DPM MS Attending Provider Active Start: April 08, 2024 End: April 08, 2024 Team Status: Inactive Member Role Status Dates Dara Eisenberg APRN GRAIN UNLOADER-C Primary Care Provider Active Start: March 222023 End: April 12, 2024 Navdeep Trujillo MD Attending Provider Active Sta rt: April 12, 2024 End: April 12, 2024 Team Status: Inactive Member Role Status Dates Dara Eisenberg APRN GRAIN UNLOADER-C Primary Care Provider, Attending Provider Active Start: May 03, 2024 End: May 03, 2024 Team Status: Active Member Role Status Dates Dara Eisenberg APRN GRAIN UNLOADER-C Primary Care Provider Active Start: July Shaikh Mono MD Attending Provider Active Sta rt: August 14, 2024 Team Status: Active Member Role Status Dates Dara Eisenberg APRN GRAIN UNLOADER-C Primary Care Provider Active Start: July Shaikh Mono MD Attending Provider Active Sta rt: August 15, 2024 Team Status: Inactive Member Role Status Dates Dara Eisenberg APRN GRAIN UNLOADER-C Primary Care Provider, Attending Provider Active Start: November 05, 2024 End: November 05, 2024 Team Status: Inactive Member Role Status Dates Dara Eisenberg APRN GRAIN UNLOADER-C Primary Care Provider Active Start: November 05, 2024 End: November 05, 2024 Dara Eisenberg APRN GRAIN UNLOADER-Bro Attending Provider Act mook Start: November 05, 2024 End: November 05, 2024 Team Status: Active Member Role Status Dates Dara Eisenberg APRN GRAIN UNLOADER-C Primary Care Provider Active Start: January 27, 2025 Angelic Blevins CMA Attending Provider Active Start: January 27, 2025 Team Status: Inactive Member Role Status Dates Dara Eisenberg APRN GRAIN UNLOADER-C Primary Care Provider Active Start: February 01, 2025 End: February 01, 2025 Dara Eisenberg APRN GRAIN UNLOADER-C Attending Provider Act mook Start: February 01, [...] BE BASED ON THE PRIMARY CLINICAL RECORDS. [facility] [employer] provides no warranty or guarantee of the accuracy or completeness of information in this document.
== END 2025-03-22 13:14 | disposition home or self-care (01) ==
LOC: WC 13:13
PROVIDERS: PCP Nurse Practitioner Family; Visit Provider Physician Assistant
DX: I87.313 Chronic venous hypertension (idiopathic) with ulcer of bilateral lower extremity (principal); L97.822 Non-pressure chronic ulcer of other part of left lower leg with fat layer exposed; L97.812 Non-pressure chronic ulcer of other part of right lower leg with fat layer exposed
CPT/HCPCS: 29581

== ENCOUNTER 2025-03-31 15:00 | Outpatient (OUT) | payer MEDICARE, SELFPAY ==
--- OUTSIDE RECORDS SUMMARY | 2025-04-01 08:27 | XMS_ITS | Clinical Summary ---
Author Organization [facility] Address [address] [place] [address] Care Team Providers Care Child Adolescent Care Name Role Phone Unavailable Primary Care Provider [...] Colonoscopy 1960 Colorectal Cancer Screening 1960 FIT-DNA (Cologuard) 1958 FIT 1958 FOBT 1960 Sigmoidoscopy 1958 Annual Visit Topic 12/02/1959 MMR Vaccines (1 of 1 - Stand avinash series) 12/02/1959 Hepatitis C Screening 1976 DTaP/Tdap/Td Vaccines (1 - Tdap) 1977 Pneumococcal Vaccine: 65+ Ye ars (1 of 2 - PCV) 2008 PSA Test 2013 HIB Vaccines Aged Out No longer eligi ble based on patient's age to complete this topic HPV Vaccines Aged Out No longer eligi ble based on patient's age to complete this topic Hepatitis A Vaccines Aged Out No long er eligible based on patient's age to complete this topic Hepatitis B Vaccines Aged Out No long er eligible based on patient's age to complete this topic IPV Vaccines Aged Out No longer eligi ble based on patient's age to complete this topic Meningococcal Vaccine Aged Out No yoselin celina eligible based on patient's age to complete this topic
--- OUTSIDE RECORDS SUMMARY | 2025-04-01 08:27 | XMS_ITS | Clinical Summary ---
Author Organization [facility] Address [address] [place] [place] [address] Care Team Providers Care Scrubbing Machine Operator Name Role Phone Dara Eisenberg NP Primary Care Provider Encounters Date Type Department Care Team Description 01/26/2025 Abstract [facility] [address] [place] [address] Sina Mckeon, DPM FACFAS from Last 3 Months Social History Tobacco Use Types Packs/Day Years Used Date Smoking Tobacco: Never Assessed Sex and Gender Information Value Date Recorded Sex Assigned at Not on file Legal Sex Male 7:20 PM EDT Gender Identity Not on file Sexual Orientation Not on file Plan of Treatment Not on file Insurance [employer] MEDICARE Care Teams Scrubbing Machine Operator Relationship Specialty Start Date End Date Dara Eisenberg NP [address] [place] [phone] PCP - General Family Medicine 11/11/24
--- OUTSIDE RECORDS SUMMARY | 2025-04-01 08:28 | XMS_ITS | Clinical Summary ---
Author Organization [facility] Address [address] [place] [address] Care Team Providers Care Parts Counter Specialist Name Role Phone Dara Eisenberg NP Primary Care Provider [phone] Allergies No known active allergies Medications insulin [...] 5 Active furosemide (Lasix) 40 mg tabletIndications:Ac najma hypoxic respiratory failure (CMS/HCC) Take 1 tablet [...] to 12 doses. 12 tablet 5 Active Active Problems Problem Noted Date Diagnosed Date Acute hypoxic respiratory failure 08/15/2024 Social History Tobacco Use Types Packs/Day Years Used Date Smoking Tobacco: Every Day Cigarettes Smokeless Tobacco: Never Tobacco Cessation:Ready to Q uit: Not Asked; Counseling Given: Not Answered [facility] Utilities Answer Date Recorded In the past 12 months has th e [employer], gas, oil, or water company threatened to shut off services in your [...] any time in the past 12 m [facility], were you homeless or living in a prison (including now)? Patient unable to answer 08/15/2024 [...] 1980 Zoster Vaccines (1 of 2) 2008 Diabetes: Hemoglobin A1C 11/13/2024 08/15/2024 COVID-19 Vaccine (4 - 2024-2 6 season) 2025 06/29/2022, 10/27/2020, 10/01/2020 Influenza Vaccine (#1) 2025 06/23/2022 Fall Risk Screening 09/09/2025 09/09/2024 [...] - 6.0 % 08/16/2024 12:30 PM EST [facility] [place] [facility] Estimated Average Glucose 189 mg/dL 08/16/2024 12:30 PM EST [facility] [place] [facility] Blood Venous blood specimen / Unknown Arterial Line / Unknown 08/15/2024 2:04 PM EST 08/15/2024 2:30 PM EST Chantal Woodruff MD LAB BLOOD ORDERABLES Final Re sult [facility] [place] [facility] [address] [place] [address] from Last 3 Months or Most Recently Relevant to Health Maintenance Additional Health Concerns Infection Onset Date 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
--- OUTSIDE RECORDS SUMMARY | 2025-04-01 08:28 | XMS_ITS | Clinical Summary ---
Author Organization [facility] [address] [id number] Care Team Providers Care Commission Sales Associate Name Role Phone Unavailable Primary Care Provider [...]
--- OUTSIDE RECORDS SUMMARY | 2025-04-01 08:28 | XMS_ITS | Encounter Summary ---
Author Organization [facility] Address [address] [place] [address] Care Team Providers Care Roughener Name Role Phone Dara Eisenberg STRAWHAT BLOCKING OPERATOR Primary Care Provider Encounter Details Date Type Department Care Team ([facility] Contact Info) Description 01/26/2025 Abstract [facility] [address] [place] [phone] Sina Mckeon, DPM FACFAS [address] [place] [address] Social History Tobacco Use Types Packs/Day Years [...] on filedocumented in this encounter Care Teams Roughener Relationship Specialty Start Date End Date Dara Eisenberg NP [address] [facility] [place] [address] [place] [address] PCP - General Family Medicine 11/11/24 documented as of this encounter
--- OUTSIDE RECORDS SUMMARY | 2025-04-01 08:29 | XMS_ITS | CCD ---
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 [facility] [address] [place] [address] MCV (RBC) [Entitic vol] 91.8 fL Normal 80.0-100.0 [facility] Comment on above: Performed By: #### 2 [id number] #### [facility] [address] [place] [address] Glasscock Absolute 1.3 E9/L High 0.2-1.0 [facility] Comment on above: Performed By: #### 2 [id number] #### [facility] [address] [place] [address] Monocytes/100 WBC (Bld) 7.6 % Normal 4.0-14.0 [facility] Comment on above: Performed By: #### 2 [id number] #### [facility] [address] [place] [address] Neutro Absolute 14.8 E9/L High 2.0-7.5 [facility] Comment on above: Performed By: #### 2 106121 #### [facility] [address] [place] [address] Neutro Auto 85.3 % High 36.0-75.0 [facility] Comment on above: Performed By: #### 2 851556 #### [facility] [address] [place] [address] Platelet 269.0 E9/L Normal 150.0-500.0 [facility] Comment on above: Performed By: #### 2 948766 #### [facility] [address] [place] [address] Platelet mean volume (Bld) [Entitic vol] 8.7 fL Normal 6.4-10.8 [facility] Comment on above: Performed By: #### 2 [id number] #### [facility] [address] [place] [address] RBC 4.8 E12/L Normal 4.3-5.9 [facility] Comment on above: Performed By: #### 2 311158 #### [facility] [address] [place] [address] WBC 17.4 E9/L High 4.0-11.0 [facility] Comment on above: Performed By: #### 2 [id number] #### [facility] [address] [place] [address] Capillary Glucose POCon 07-0 Glucose [Mass/Vol] 490 mg/dL Abnormal 55-99 [facility] Comment on above: Result Comment: Cindy calle RN/MD Performed By: #### 2 [id number] #### [facility] [address] [place] [address] ED Clinical Summaryon 2024 ED Clinical Summary ED Clinical Summary [address] [address] ED Clinical Summary Person Information [facility] Age: 64 Years : 1960 Sex: Male Language: Marshallese PCP: DARA EISENBERG CNP Marital Status: Single Phone: [phone] Visit Id: Visit Reason: Medical problem - [...] 18:23:37 Patient Care Request 01/24/2025 18:23:37 ADDRESS: [address] [place] [address] PHYS DOC NOTES: MEDICAL INFORMATION: Prescriptions Given: New Medications [id number], [address], [place] [id number], [phone] doxycycline (doxycycline hyclate 100 mg Cap) 1 Capsules By Mouth 2 times a day for 7 Days. Refills: 0. PATIENT EDUCATION INFORMATION: Instructions: Cellulitis, Adult, Wgne-xl-Hkqb; Bleeding Varicose Veins Follow up: With: Address: When: DARA EISENBERG [address], [address] [place] [phone] Business (1) In 3 days 01/27/2025 Comments: Call Dr for diagnosis based follow up DIAGNOSIS: 1:Severe sepsis; 2:Cellulitis of leg; 3:KRISTINE (acute kidney injury); 4:Atrial fibrillation with RVR; 5: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; 6:Hyponatremia; 7:Noncompliance with medications Normal [facility] ED Note-Physicianon 01-25-20 ED Note-Physician ED [...] of the patient. Sepsis Data [x] Patient's [place] body weight was considered in sepsis fluid [...] nonco (more content not included)... Normal [facility] Comment on above: Result Comment: Elec tronically Signed By: Puneet Jung PA-C.br\Date and Time Signed: 01/24/25 13:02 EDT\.br\Electronically Co-Signed By: Puneet Jung PA-C.br\Date and Time Co-Signed: 01/24/25 15:25 EDT\.br\Electronically Co-Signed By: Puneet Jung PA-C.br\Date and Time Co-Signed: 01/24/25 16:27 EDT\.br\Electronically Co-Signed By: Justine Otto, Manuel Mathis\.br\Date and Time Co-Signed: 01/24/25 18:08 EDT ED Patient Summaryon 025 ED Patient Summary ED Patient Summary [place] [address] Patient Discharge Instructions Person Information Name: TYLER MCKINNEY Age: 64 Years Arrival Date: 01/24/2025 11:29:33 Discharge Diagnosis: 1:Severe sepsis; 2:Cellulitis of leg; 3:KRISTINE (acute kidney injury); 4:Atrial fibrillation with RVR; 5: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; 6:Hyponatremia; 7:Noncompliance with medications Primary Care Physician: DARA EISENBERG CNP Provider Information Primary Provider: Manuel Fletcher M.D. Advanced [employer] Machine Tender:Puneet Jung PA-C The exam and treatment you received in the Emergency Department were for an urgent problem and are not intended as complete care. It is important that you follow up with a doctor, nurse practitioner, or physician???s ict sales assistant for ongoing care. If your symptoms [...] Instructions: With: Address: When: DARA EISENBERG [address] [facility], [facility] [place] [phone] Business (1) In 3 days 01/27/2025 Comments: Call Dr for diagnosis based follow up In the event that this physician does not participate in your insurance network, please consult with your insurance company to find a nearby participating provider. Patient Education Materials: Cellulitis, Adult, Xhxn-dq-Atvf; Bleeding Varicose Veins A MESSAGE TO ALL PATIENTS REGARDING OPIOIDS PRESCRIPTION OPIOIDS: WHAT YOU NEED TO KNOW Prescription opioids can be used to help relieve klqexidn-gh-jlmsyn pain and are often prescribed following a [...] toilet, f (more content not included)... Normal [facility] Lactic Acidon 01-24-2025 Lactic Acid Lvl 1.0 mmol/L Normal 0.5-2.2 [facility] Comment on above: Performed By: #### 2 [id number] #### [facility] [address] [place] [address] PT & PTTon 01-24-2025 INR Coag (PPP) [Relative time] 1.03 {INR} Invalid Interpretation Code [facility] Comment on above: Result Comment: INR results are specifically intended to assess patients stabilized on long-term Anticoagulation therapy suggested INR???s ???Less Intensive Anticoagulation??? 2.0 ??? 3.0 Conventional Range 3.0 ??? 4.5 Performed By: #### 1 [id number] #### [facility] [address] [place] [address] PT 11.5 second(s) Normal 9.4-12.5 [facility] Comment on above: Result Comment: 15 [...] were obtained from a study by Shimon [place], et al. prepared from 1437 samples obtained at 7 different centers using the same coagulation reagent and instrumentation as [facility]. Currently there are no coagulation studies available worldwide for children to 14 days, and no normal ranges. Performed By: #### 1 [id number] #### [facility] [address] [place] [address] PTT 27.7 second(s) Normal 25.1-36.5 [facility] Comment on above: Result Comment: Para [...] the same coagulation reagent and instrumentation as [facility]. Currently there are no coagulation studies available worldwide for children to 14 days, and no normal ranges. Heparin therapeutic range (represented by Anti-Factor Xa activity of 0.2 - 0.4 U/mL) corresponds to PTT of 56.6 - 109.0 sec. Performed By: #### 1 [id number] #### [facility] [address] [place] [address] Pre-Arrival Noteon Pre-Arrival Note Pre-Arrival Note Pre-Arrival Summary Name: , Current Date: 01/24/2025 11:30:22 EDT Gender: Date of : Age: Pre-Arrival Type: EMS ETA: 01/24/2025 11:50:00 EDT Primary Care Physician: Presenting Problem: varicose vein tourniquet Pre-Arrival User: [address] Referring Source: Location: [place] Completion Date/Time: 01/24/2025 11:20:00 [facility] Emergency Department Pre-Hospital Report Form Vital Signs: Pre-Hospital Report: Treatment in Route: Response to Treatment: Misc. Issues: Normal [facility] Procalcitoninon 01-24-2025 Procalcitonin .09 ng/mL Normal .00-.50 [facility] Comment on above: Result Comment: <0.5 ng/mL [...] to 24 hours. Performed By: #### 2 [id number] #### [facility] [address] [place] [address] Troponin 0 Hr.on 01-24-2025 Troponin HS 4.60 pg/mL Low 15.90-38.40 [facility] Comment on above: Result Comment: The 95% CI (Confidence Interval) PPV (Positive Predictive Value) for myocardial infarction in females is 38 pg/mL, in males 51 pg/mL. The results should be used in conjunction with clinical conditions of myocardial infarction. (Access High Sensitivity Troponin I Instructions For Use, Charli Anson, February 2018) Performed By: #### 1 [id number] #### [facility] [address] [place] [address] UA with Cult Rflxon 01-25-20 25 Color (U) Light-Yellow Normal Yellow [facility] Comment on above: Result Comment: Micr oscopic readings are only performed on those samples that meet specific criteria set forth by [facility]. Performed By: #### 4 [id number] #### [facility] [address] [place] [id number] Ketones Ql (U) Negative Normal Negative [facility] Comment on above: Performed By: #### 4 [id number] #### [facility] [address] [place] [address] UA Blood 1+ mg/dL Abnormal Negative [facility] Comment on above: Performed By: #### 4 [id number] #### [facility] [address] [place] [address] UA Clarity Clear Normal Clear [facility] Comment on above: Performed By: #### 4 [id number] #### [facility] [address] [place] [address] UA Glucose 4+ mg/dL Abnormal Negative [facility] Comment on above: Performed By: #### 4 [id number] #### [facility] [address] [place] [address] UA Leuk Est Negative Normal Negative [facility] Comment on above: Performed By: #### 4 [id number] #### [facility] [address] [place] [address] UA Mucous Trace Normal Negative [facility] Comment on above: Performed By: #### 4 [id number] #### [facility] [address] [place] [address] UA Nitrite Negative Normal Negative [facility] Comment on above: Performed By: #### 4 [id number] #### [facility] [address] [place] [address] UA pH 5.0 Invalid Interpretation Code 5.0-9.0 [facility] Comment on above: Performed By: #### 4 [id number] #### [facility] [address] [place] [address] UA Protein Negative Normal Negative [facility] Comment on above: Performed By: #### 4 [id number] #### [facility] [address] [place] [address] UA RBC 4-20 Abnormal 0-3 [facility] Comment on above: Performed By: #### 4 [id number] #### [facility] [address] [place] [address] UA Spec Grav 1.020 Invalid Interpretation Code 1.005-1.030 [facility] Comment on above: Performed By: #### 4 [id number] #### [facility] [address] [place] [address] UA Urobilinogen Negative Normal Negative [facility] Comment on above: Performed By: #### 4 [id number] #### [facility] [address] [place] [address] UA WBC 0-5 Normal 0-5 [facility] Comment on above: Performed By: #### 4 [id number] #### [facility] [address] [place] [address] Urobilinogen (U) [Mass/Vol] Negative Normal Negative [facility] Comment on above: Performed By: #### 4 [id number] #### [facility] [address] [place] [address] UA Spec Desc Clean Catch Normal [facility] Comment on above: Performed By: #### 4 [id number] #### [facility] [address] [place] [address] XR Chest 2 Viewson XR Chest 2 [...] Krishna Ray MD Transcribed by: UMU Technologist: TOY PAINTER Normal [facility] eGFRon 01-24-2025 eGFR 55 mL/min/1.73 m2 Low >=59 [facility] Comment on above: Performed By: #### 1 [id number] #### [facility] [address] [place] [address] HbA1c HPLC (Bld) [Mass fract ion]on 11-05-2024 HbA1c (Bld) [Mass fraction] 10.1 % [facility] CBC WITH AUTO DIFFERENTIALon 09-09-2024 Basophils (Bld) [#/Vol] 0.05 10*3/uL Normal 0.00-0.20 [facility] Comment on above: Performed By: #### L [id number] ####[facility] (BEAK[facility])[address] [place] [address] Basophils/100 WBC (Bld) 0.6 % Normal 0.0-1.0 [facility] Comment on above: Performed By: #### L [id number] ####[facility] ([facility])[address] [place] [address] Eosinophils (Bld) [#/Vol] 0.43 10*3/uL Normal 0.00-0.50 [facility] Comment on above: Performed By: #### L [id number] ####[facility] ([facility])[address] [address] Eosinophils/100 WBC (Bld) 5.0 % Normal 0.0-6.0 [facility] Comment on above: Performed By: #### L [id number] ####[facility] ([facility])[address] [place] [address] Erythrocyte distribution width (RBC) [Ratio] 15.1 % High 11.5-15.0 [facility] Comment on above: Performed By: #### L [id number] ####[facility] ([facility])[address] [address] ERYTHROCYTE MEAN CORPUSCULAR HEMOGLOBIN CONCENTRATION (G/DL) BY AUTOMATED 31.1 g/dL Low 32.0-35.0 [facility] Comment on above: Performed By: #### L [id number] ####[facility] ([facility])[address] [place] [address] Hematocrit (Bld) [Volume fraction] 48.8 % Normal 39.0-55.0 [facility] Comment on above: Performed By: #### L [id number] ####[facility] ([facility])[address] [place] [address] Hemoglobin (Bld) [Mass/Vol] 15.2 g/dL Normal 13.0-17.0 [facility] Comment on above: Performed By: #### L [id number] ####[facility] ([facility])[address] [place] [address] Immature granulocytes (Bld) [#/Vol] 0.05 10*3/uL Normal 0.00-0.20 [facility] Comment on above: Performed By: #### L [id number] ####[facility] ([facility])[address] [place] [address] Immature granulocytes/100 WBC (Bld) 0.6 % Normal 0.0-1.0 [facility] Comment on above: Performed By: #### L [id number] ####[facility] ([facility])[address] [place] [address] Lymphocytes (Bld) [#/Vol] 1.59 10*3/uL Normal 1.20-4.00 [facility] Comment on above: Performed By: #### L [id number] ####[facility] ([facility])[address] [place] [address] Lymphocytes/100 WBC (Bld) 18.5 % Low 20.0-45.0 [facility] Comment on above: Performed By: #### L [id number] ####[facility] ([facility])[address] [place] [address] MCH (RBC) [Entitic mass] 28.8 pg Normal 27.0-33.0 [facility] Comment on above: Performed By: #### L [id number] ####[facility] ([facility])[address] [place] [address] MCV (RBC) [Entitic vol] 92.6 fL Normal 82.0-98.0 [facility] Comment on above: Performed By: #### L [id number] ####[facility] [place] [address] Monocytes (Bld) [#/Vol] 0.90 10*3/uL Normal 0.10-1.00 [facility] Comment on above: Performed By: #### L [id number] ####[facility] ([facility])[address] [place] [address] Monocytes/100 WBC (Bld) 10.5 % Normal 5.0-12.0 [facility] Comment on above: Performed By: #### L [id number] ####[facility] ([facility])[address] [place] [address] Neutrophils (Bld) [#/Vol] 5.56 10*3/uL Normal 1.60-7.60 [facility] Comment on above: Performed By: #### L [id number] ####[facility] ([facility])[address] [place] [address] Neutrophils/100 WBC (Bld) 64.8 % Normal 40.0-72.0 [facility] Comment on above: Performed By: #### L [id number] ####[facility] [place] [address] NRBC (PER 100 WBCS) BY AUTOMATED COUNT 0.0 % Normal 0 [facility] Comment on above: Performed By: #### L [id number] ####[facility] [place] [address] PLATELETS (10*3/UL) IN BLOOD AUTOMATED COUNT 208 10*3/uL Normal 150-400 [facility] Comment on above: Performed By: #### L [id number] ####[facility] [place] [address] RBC (Bld) [#/Vol] 5.27 10*6/uL Normal 4.20-5.70 [facility] Comment on above: Performed By: #### L [id number] ####[facility] [place] [address] WBC (Bld) [#/Vol] 8.58 10*3/uL Normal 4.00-10.60 [facility] Comment on above: Performed By: #### L [id number] ####[facility] ([facility])[address] [place] [address] DSon 09-09-2024 DS [facility] MAGNESIUMon 09-09-2024 Magnesium [Mass/Vol] 1.7 mg/dL Low 1.9-2.7 [facility] Comment on above: Performed By: #### L [id number] ####[facility] ([facility])[address] [place] [address] PHOSPHORUSon 09-09-2024 Magnesium [Mass/Vol] 3.2 mg/dL Normal 2.5-5.0 [facility] Comment on above: Performed By: #### L [id number] ####[facility] ([facility])[address] [place] [address] POCT GLUCOSE METER UNSOLICIT ED RESULTSon 09-09-2024 Glucose [Mass/Vol] 114 mg/dL High 70-105 [facility] Comment on above: Order Comment: Waive d Testing in the ED is performed under the ED CLIA certificate #[id number]. Result Comment: ndub [id number] Performed By: #### L [id number] ####[facility] ([facility])[address] [place] [address] 30on 09-08-2024 30 [facility] 30 [facility] CBC WITH AUTO DIFFERENTIALon 09-08-2024 Basophils (Bld) [#/Vol] 0.06 10*3/uL Normal 0.00-0.20 [facility] Comment on above: Performed By: #### L [id number] ####[facility] [facility] [place] [address] Basophils/100 WBC (Bld) 0.8 % Normal 0.0-1.0 [facility] Comment on above: Performed By: #### L [id number] ####[facility] ([facility]ER)[address] [place] [address] Eosinophils (Bld) [#/Vol] 0.43 10*3/uL Normal 0.00-0.50 [facility] Comment on above: Performed By: #### L [id number] ####[facility] [place] [address] Eosinophils/100 WBC (Bld) 5.5 % Normal 0.0-6.0 [facility] Comment on above: Performed By: #### L [id number] ####[facility] [place] [address] Erythrocyte distribution width (RBC) [Ratio] 15.2 % High 11.5-15.0 [facility] Comment on above: Performed By: #### L [id number] ####[facility] [place] [address] ERYTHROCYTE MEAN CORPUSCULAR HEMOGLOBIN CONCENTRATION (G/DL) BY AUTOMATED 30.8 g/dL Low 32.0-35.0 [facility] Comment on above: Performed By: #### L [id number] ####[facility] (BEAKER)[address] [place] [address] Hematocrit (Bld) [Volume fraction] 45.4 % Normal 39.0-55.0 [facility] Comment on above: Performed By: #### L [id number] ####[facility] (BEAKER)[address] [place] [address] Hemoglobin (Bld) [Mass/Vol] 14.0 g/dL Normal 13.0-17.0 [facility] Comment on above: Performed By: #### L [id number] ####[facility] (BEAKER)[address] [place] [address] Immature granulocytes (Bld) [#/Vol] 0.03 10*3/uL Normal 0.00-0.20 [facility] Comment on above: Performed By: #### L [id number] ####[facility] ([facility])[address] [place] [address] Immature granulocytes/100 WBC (Bld) 0.4 % Normal 0.0-1.0 [facility] Comment on above: Performed By: #### L [id number] ####[facility] ([facility])[address] [place] [address] Lymphocytes (Bld) [#/Vol] 1.82 10*3/uL Normal 1.20-4.00 [facility] Comment on above: Performed By: #### L [id number] ####[facility] ([facility])[address] [place] [address] Lymphocytes/100 WBC (Bld) 23.2 % Normal 20.0-45.0 [facility] Comment on above: Performed By: #### L [id number] ####[facility] ([facility])[address] [place] [address] MCH (RBC) [Entitic mass] 29.1 pg Normal 27.0-33.0 [facility] Comment on above: Performed By: #### L [id number] ####[facility] ([facility])[address] [place] [address] MCV (RBC) [Entitic vol] 94.4 fL Normal 82.0-98.0 [facility] Comment on above: Performed By: #### L [id number] ####[facility] [place] [address] Monocytes (Bld) [#/Vol] 0.88 10*3/uL Normal 0.10-1.00 [facility] Comment on above: Performed By: #### L [id number] ####[facility] [place] [address] Monocytes/100 WBC (Bld) 11.2 % Normal 5.0-12.0 [facility] Comment on above: Performed By: #### L [id number] ####[facility] (BEAKER)[address] [place] [address] Neutrophils (Bld) [#/Vol] 4.62 10*3/uL Normal 1.60-7.60 [facility] Comment on above: Performed By: #### L [id number] ####[facility] (BEAKER)[address] [place] [address] Neutrophils/100 WBC (Bld) 58.9 % Normal 40.0-72.0 [facility] Comment on above: Performed By: #### L [id number] ####[facility] ([facility])[address] [place] [address] NRBC (PER 100 WBCS) BY AUTOMATED COUNT 0.0 % Normal 0 [facility] Comment on above: Performed By: #### L [id number] ####[facility] ([facility])[address] [place] [address] PLATELETS (10*3/UL) IN BLOOD AUTOMATED COUNT 231 10*3/uL Normal 150-400 [facility] Comment on above: Performed By: #### L [id number] ####[facility] ([facility])[address] [address] RBC (Bld) [#/Vol] 4.81 10*6/uL Normal 4.20-5.70 [facility] Comment on above: Performed By: #### L [id number] ####[facility] (BEAKER)[address] [place] [address] WBC (Bld) [#/Vol] 7.84 10*3/uL Normal 4.00-10.60 [facility] Comment on above: Performed By: #### L [id number] ####[facility] (BEAKER)[address] [place] [address] MAGNESIUMon 09-08-2024 Magnesium [Mass/Vol] 1.6 mg/dL Low 1.9-2.7 [facility] Comment on above: Performed By: #### L [id number] ####[facility] ([facility])[address] [place] [address] NURSNOTEon 09-08-2024 NURSNOTE Normal [facility] PHOSPHORUSon 09-08-2024 Magnesium [Mass/Vol] 3.4 mg/dL Normal 2.5-5.0 [facility] Comment on above: Performed By: #### L [id number] ####[facility] ([facility])[address] [place] [address] POCT GLUCOSE METER UNSOLICIT ED RESULTSon 09-08-2024 Glucose [Mass/Vol] 244 mg/dL High 70-105 [facility] Comment on above: Order Comment: Waive d Testing in the ED is performed under the ED CLIA certificate #[id number]. Result Comment: droc kol Performed By: #### L [id number] ####[facility] ([facility])[address] [place] [address] Glucose [Mass/Vol] 165 mg/dL High 70-105 [facility] Comment on above: Order Comment: Waive d Testing in the ED is performed under the ED CLIA certificate #[id number]. Result Comment: ndub ois3 Performed By: #### L [id number] ####[facility] ([facility])[address] [place] [address] Glucose [Mass/Vol] 110 mg/dL High 70-105 [facility] Comment on above: Order Comment: Waive d Testing in the ED is performed under the ED CLIA certificate #[id number]. Result Comment: ndub ois3 Performed By: #### L [id number] ####[facility] ([facility])[address] [place] [address] Glucose [Mass/Vol] 157 mg/dL High 70-105 [facility] Comment on above: Order Comment: Waive d Testing in the ED is performed under the ED CLIA certificate #[id number]. Result Comment: ndub ois3 Performed By: #### L [id number] ####[facility] (mobile mum)[address] [place] [address] 30on 09-07-2024 30 Normal [facility] 30 Normal [facility] BASIC METABOLIC PANELon 08-21 Anion gap [Moles/Vol] 9 mmol/L Normal 7-20 [facility] Comment on above: Performed By: #### L [id number] ####[facility] [place] [address] Calcium [Mass/Vol] 9.6 mg/dL Normal 8.6-10.3 [facility] Comment on above: Performed By: #### L [id number] ####[facility] [place] [address] Chloride [Moles/Vol] 100 mmol/L Normal 98-107 [facility] Comment on above: Performed By: #### L [id number] ####[facility] [place] [address] CO2 [Moles/Vol] 32 mmol/L High 21-[address] [facility] Comment on above: Performed By: #### L [id number] ####[facility] [place] [address] Creatinine [Mass/Vol] 0.78 mg/dL Normal 0.70-1.30 [facility] Comment on above: Performed By: #### L [id number] ####[facility] [place] [address] GLOMERULAR FILTRATION RATE ML/MIN/1.73 SQ M.PREDICTED 99.0 mL/min/1.73m*2 Normal >60.0 [facility] Comment on above: Result Comment: [facility]???s estimated glomerular filtration rate (eGFR) will no [...] By: #### L [id number] ####[facility] ([facility])[address] [place] [address] Glucose [Mass/Vol] 153 mg/dL High 70-100 [facility] Comment on above: Performed By: #### L [id number] ####[facility] ([facility])[address] [place] [address] Potassium [Moles/Vol] 4.1 mmol/L Normal 3.5-5.1 [facility] Comment on above: Performed By: #### L [id number] ####[facility] ([facility])[address] [place] [address] Sodium [Moles/Vol] 137 mmol/L Normal 136-145 [facility] Comment on above: Performed By: #### L [id number] ####[facility] ([facility])[address] [place] [address] Urea nitrogen [Mass/Vol] 19 mg/dL Normal 7-25 [facility] Comment on above: Performed By: #### L [id number] ####[facility] ([facility])[address] [place] [address] UREA NITROGEN/CREATININE (MASS RATIO) IN SER/PLAS 24.4 Normal [facility] Comment on above: Performed By: #### L [id number] ####[facility] ([facility])[address] [place] [address] CBC WITH AUTO DIFFERENTIALon 09-07-2024 Basophils (Bld) [#/Vol] 0.06 10*3/uL Normal 0.00-0.20 [facility] Comment on above: Performed By: #### L [id number] ####[facility] ([facility])[address] [place] [address] Basophils/100 WBC (Bld) 0.8 % Normal 0.0-1.0 [facility] Comment on above: Performed By: #### L [id number] ####[facility] (BEAKER)[address] [place] [address] Eosinophils (Bld) [#/Vol] 0.49 10*3/uL Normal 0.00-0.50 [facility] Comment on above: Performed By: #### L [id number] ####[facility] (BEAKER)[address] [place] [address] Eosinophils/100 WBC (Bld) 6.8 % High 0.0-6.0 [facility] Comment on above: Performed By: #### L [id number] ####[facility] [place] [address] Erythrocyte distribution width (RBC) [Ratio] 15.3 % High 11.5-15.0 [facility] Comment on above: Performed By: #### L [id number] ####[facility] ([facility])[address] [place] [address] ERYTHROCYTE MEAN CORPUSCULAR HEMOGLOBIN CONCENTRATION (G/DL) BY AUTOMATED 30.9 g/dL Low 32.0-35.0 [facility] Comment on above: Performed By: #### L [id number] ####[facility] ([facility])[address] [place] [address] Hematocrit (Bld) [Volume fraction] 45.9 % Normal 39.0-55.0 [facility] Comment on above: Performed By: #### L [id number] ####[facility] (BEAKER)[address] [place] [address] Hemoglobin (Bld) [Mass/Vol] 14.2 g/dL Normal 13.0-17.0 [facility] Comment on above: Performed By: #### L [id number] ####[facility] (BEAKER)[address] [place] [address] Immature granulocytes (Bld) [#/Vol] 0.04 10*3/uL Normal 0.00-0.20 [facility] Comment on above: Performed By: #### L [id number] ####[facility] (BEAKER)[address] [place] [address] Immature granulocytes/100 WBC (Bld) 0.6 % Normal 0.0-1.0 [facility] Comment on above: Performed By: #### L [id number] ####[facility] (BEAKER)[address] [place] [address] Lymphocytes (Bld) [#/Vol] 1.82 10*3/uL Normal 1.20-4.00 [facility] Comment on above: Performed By: #### L [id number] ####[facility] (BEAKER)[address] [place] [address] Lymphocytes/100 WBC (Bld) 25.3 % Normal 20.0-45.0 [facility] Comment on above: Performed By: #### L [id number] ####[facility] (BEAKER)[address] [place] [address] MCH (RBC) [Entitic mass] 29.2 pg Normal 27.0-33.0 [facility] Comment on above: Performed By: #### L [id number] ####[facility] (BEAKER)[address] [place] [address] MCV (RBC) [Entitic vol] 94.4 fL Normal 82.0-98.0 [facility] Comment on above: Performed By: #### L [id number] ####[facility] (BEAKER)[address] [place] [address] Monocytes (Bld) [#/Vol] 0.74 10*3/uL Normal 0.10-1.00 [facility] Comment on above: Performed By: #### L [id number] ####[facility] (BEAKER)[address] [place] [address] Monocytes/100 WBC (Bld) 10.3 % Normal 5.0-12.0 [facility] Comment on above: Performed By: #### L [id number] ####[facility] (BEAKER)[address] [place] [address] Neutrophils (Bld) [#/Vol] 4.04 10*3/uL Normal 1.60-7.60 [facility] Comment on above: Performed By: #### L [id number] ####[facility] [address] Neutrophils/100 WBC (Bld) 56.2 % Normal 40.0-72.0 [facility] Comment on above: Performed By: #### L [id number] ####[facility] ([facility])[address] [address] NRBC (PER 100 WBCS) BY AUTOMATED COUNT 0.0 % Normal 0 [facility] Comment on above: Performed By: #### L [id number] ####[facility] ([facility])[address] [address] PLATELETS (10*3/UL) IN BLOOD AUTOMATED COUNT 234 10*3/uL Normal 150-400 [facility] Comment on above: Performed By: #### L [id number] ####[facility] ([facility])[address] [address] RBC (Bld) [#/Vol] 4.86 10*6/uL Normal 4.20-5.70 [facility] Comment on above: Performed By: #### L [id number] ####[facility] ([facility])[address] [address] WBC (Bld) [#/Vol] 7.19 10*3/uL Normal 4.00-10.60 [facility] Comment on above: Performed By: #### L [id number] ####[facility] [address] MAGNESIUMon 09-07-2024 Magnesium [Mass/Vol] 1.7 mg/dL Low 1.9-2.7 [facility] Comment on above: Performed By: #### L [id number] ####[facility] [place] [address] NURSNOTEon 09-07-2024 NURSNOTE Signed off to Ian engel RN [facility] NURSNOTE HOB up @ 40 degrees, NO c/o of pain, or SOB at this time Urinal at bedside Call light within reach IV INT'd, intact, no redness noted Pulse ox--97% O 2 cont. On pt. Per nasal cannula @ 4 L/min NC Telemetry cont. On pt [facility] NURSNOTE [facility] NURSNOTE Tried to call Elias, pt's brother, no answer, still, at this time, 3rd attempt [facility] NURSNOTE [facility] NURSNOTE Pt's family brought him a hamburger last night, and the pt. Is eating it now. Pt. Encouraged not to eat, since the hamburger has been sitting out all night. Pt. Cont. To eat burger. [facility] NURSNOTE Eyes closed resp. Easy @ 18/min Pulse ox--98% Telemetry cont. On pt [facility] Orders Onlyon 09-07-2024 Orders Only [id number] Tyler Mckinney 1960 M Date Provider Department Center 09/07/[id number], JENN*[facility] [place] [facility] No family history on file [facility] PHOSPHORUSon 09-07-2024 Magnesium [Mass/Vol] 3.5 mg/dL Normal 2.5-5.0 [facility] Comment on above: Performed By: #### L [id number] ####[facility] (BEAKER)[address] [place] [address] POCT GLUCOSE METER UNSOLICIT ED RESULTSon 09-07-2024 Glucose [Mass/Vol] 200 mg/dL High 70-105 [facility] Comment on above: Order Comment: Waive d Testing in the ED is performed under the ED CLIA certificate #[id number]. Result Comment: droc kol Performed By: #### L [id number] ####[facility] (BEAKER)[address] [place] [address] Glucose [Mass/Vol] 211 mg/dL High 70-105 [facility] Comment on above: Order Comment: Waive d Testing in the ED is performed under the ED CLIA certificate #[id number]. Result Comment: awul ff3 Performed By: #### L [id number] ####[facility] ([facility])[address] [place] [address] Glucose [Mass/Vol] 298 mg/dL High 70-105 [facility] Comment on above: Order Comment: Waive d Testing in the ED is performed under the ED CLIA certificate #[id number]. Result Comment: awul ff3 Performed By: #### L [id number] ####[facility] ([facility])[address] [place] [address] Glucose [Mass/Vol] 155 mg/dL High 70-105 [facility] Comment on above: Order Comment: Waive d Testing in the ED is performed under the ED CLIA certificate #[id number]. Result Comment: awul ff3 Performed By: #### L [id number] ####[facility] ([facility])[address] [place] [address] 30on 09-06-2024 30 Normal [facility] 30 Normal [facility] BASIC METABOLIC PANELon 08-21 Anion gap [Moles/Vol] 11 mmol/L Normal 7-20 [facility] Comment on above: Performed By: #### L [id number] ####[facility] [place] [address] Calcium [Mass/Vol] 9.8 mg/dL Normal 8.6-10.3 [facility] Comment on above: Performed By: #### L [id number] ####[facility] (BEAKER)[address] [place] [address] Chloride [Moles/Vol] 98 mmol/L Normal 98-107 [facility] Comment on above: Performed By: #### L [id number] ####[facility] ([facility]ER)[address] [place] [address] CO2 [Moles/Vol] 31 mmol/L Normal 21-[address] [facility] Comment on above: Performed By: #### L [id number] ####[facility] ([facility])[address] [place] [address] Creatinine [Mass/Vol] 0.90 mg/dL Normal 0.70-1.30 [facility] Comment on above: Performed By: #### L [id number] ####[facility] ([facility])[address] [place] [address] GLOMERULAR FILTRATION RATE ML/MIN/1.73 SQ M.PREDICTED 94.8 mL/min/1.73m*2 Normal >60.0 [facility] Comment on above: Result Comment: [facility]???s estimated glomerular filtration rate (eGFR) will no [...] By: #### L [id number] ####[facility] ([facility])[address] [place] [address] Glucose [Mass/Vol] 244 mg/dL High 70-100 [facility] Comment on above: Performed By: #### L [id number] ####[facility] ([facility])[address] [place] [address] Potassium [Moles/Vol] 3.9 mmol/L Normal 3.5-5.1 [facility] Comment on above: Performed By: #### L [id number] ####[facility] ([facility])[address] [place] [address] Sodium [Moles/Vol] 136 mmol/L Normal 136-145 [facility] Comment on above: Performed By: #### L [id number] ####[facility] (BEAKER)[address] [place] [address] Urea nitrogen [Mass/Vol] 18 mg/dL Normal 7-25 [facility] Comment on above: Performed By: #### L [id number] ####[facility] (BEAKER)[address] [place] [address] UREA NITROGEN/CREATININE (MASS RATIO) IN SER/PLAS 20.0 Normal [facility] Comment on above: Performed By: #### L [id number] ####[facility] ([facility])[address] [place] [address] CBC WITH AUTO DIFFERENTIALon 09-06-2024 Basophils (Bld) [#/Vol] 0.07 10*3/uL Normal 0.00-0.20 [facility] Comment on above: Performed By: #### L [id number] ####[facility] ([facility])[address] [place], [place] [address] Basophils/100 WBC (Bld) 1.0 % Normal 0.0-1.0 [facility] Comment on above: Performed By: #### L [id number] ####[facility] ([facility])[address] [place] [address] Eosinophils (Bld) [#/Vol] 0.40 10*3/uL Normal 0.00-0.50 [facility] Comment on above: Performed By: #### L [id number] ####[facility] [place] [address] Eosinophils/100 WBC (Bld) 5.9 % Normal 0.0-6.0 [facility] Comment on above: Performed By: #### L [id number] ####[facility] [place] [address] Erythrocyte distribution width (RBC) [Ratio] 15.2 % High 11.5-15.0 [facility] Comment on above: Performed By: #### L [id number] ####[facility] (BEAKER)[address] [place] [address] ERYTHROCYTE MEAN CORPUSCULAR HEMOGLOBIN CONCENTRATION (G/DL) BY AUTOMATED 30.7 g/dL Low 32.0-35.0 [facility] Comment on above: Performed By: #### L [id number] ####[facility] (BEAKER)[address] [place] [address] Hematocrit (Bld) [Volume fraction] 47.3 % Normal 39.0-55.0 [facility] Comment on above: Performed By: #### L [id number] ####[facility] (BEAKER)[address] [place] [address] Hemoglobin (Bld) [Mass/Vol] 14.5 g/dL Normal 13.0-17.0 [facility] Comment on above: Performed By: #### L [id number] ####[facility] (BEAKER)[address] [place] [address] Immature granulocytes (Bld) [#/Vol] 0.05 10*3/uL Normal 0.00-0.20 [facility] Comment on above: Performed By: #### L [id number] ####[facility] (BEAKER)[address] [place] [address] Immature granulocytes/100 WBC (Bld) 0.7 % Normal 0.0-1.0 [facility] Comment on above: Performed By: #### L [id number] ####[facility] (BEAKER)[address] [place] [address] Lymphocytes (Bld) [#/Vol] 1.52 10*3/uL Normal 1.20-4.00 [facility] Comment on above: Performed By: #### L [id number] ####[facility] (BEAKER)[address] [place] [address] Lymphocytes/100 WBC (Bld) 22.5 % Normal 20.0-45.0 [facility] Comment on above: Performed By: #### L [id number] ####[facility] (BEAKER)[address] [place] [address] MCH (RBC) [Entitic mass] 29.1 pg Normal 27.0-33.0 [facility] Comment on above: Performed By: #### L [id number] ####[facility] [place] [address] MCV (RBC) [Entitic vol] 95.0 fL Normal 82.0-98.0 [facility] Comment on above: Performed By: #### L [id number] ####[facility] [place] [address] Monocytes (Bld) [#/Vol] 0.74 10*3/uL Normal 0.10-1.00 [facility] Comment on above: Performed By: #### L [id number] ####[facility] [facility] ([facility])[address] [place] [address] Monocytes/100 WBC (Bld) 10.9 % Normal 5.0-12.0 [facility] Comment on above: Performed By: #### L [id number] ####[facility] [place] [address] Neutrophils (Bld) [#/Vol] 3.98 10*3/uL Normal 1.60-7.60 [facility] Comment on above: Performed By: #### L [id number] ####[facility] (BEAKER)[address] [place] [address] Neutrophils/100 WBC (Bld) 59.0 % Normal 40.0-72.0 [facility] Comment on above: Performed By: #### L [id number] ####[facility] (BEAKER)[address] [place] [address] NRBC (PER 100 WBCS) BY AUTOMATED COUNT 0.0 % Normal 0 [facility] Comment on above: Performed By: #### L [id number] ####[facility] (BEAKER)[address] [place] [address] PLATELETS (10*3/UL) IN BLOOD AUTOMATED COUNT 251 10*3/uL Normal 150-400 [facility] Comment on above: Performed By: #### L [id number] ####[facility] ([facility])[address] [place] [address] RBC (Bld) [#/Vol] 4.98 10*6/uL Normal 4.20-5.70 [facility] Comment on above: Performed By: #### L [id number] ####[facility] ([facility])[address] [place] [address] WBC (Bld) [#/Vol] 6.76 10*3/uL Normal 4.00-10.60 [facility] Comment on above: Performed By: #### L [id number] ####[facility] ([facility])[address] [place] [address] MAGNESIUMon 09-06-2024 Magnesium [Mass/Vol] 1.6 mg/dL Low 1.9-2.7 [facility] Comment on above: Performed By: #### L [id number] ####[facility] ([facility])[address] [place] [address] NURSNOTEon 09-06-2024 NURSNOTE Signed off to Ian engel RN--with bedside rounding Pt. Cont. To sit up in a chair at bedside Call light within reach [facility] NURSNOTE [facility] NURSNOTE Pt refused to go yeni k to bed at this time Pt. Cont. To sit up in a chair at bedside No c/o of SOB or nausea at this time Resp. Easy @ 18/min [facility] PHOSPHORUSon 09-06-2024 Magnesium [Mass/Vol] 3.4 mg/dL Normal 2.5-5.0 [facility] Comment on above: Performed By: #### L [id number] ####[facility] ([facility])[address] [place] [address] POCT GLUCOSE METER UNSOLICIT ED RESULTSon 09-06-2024 Glucose [Mass/Vol] 255 mg/dL High 70-105 [facility] Comment on above: Order Comment: Waive d Testing in the ED is performed under the ED CLIA certificate #[id number]. Result Comment: [email or web address] Performed By: #### L [id number] ####[facility] (BEAKER)[address] [place] [address] Glucose [Mass/Vol] 208 mg/dL High 70-105 [facility] Comment on above: Order Comment: Waive d Testing in the ED is performed under the ED CLIA certificate #[id number]. Result Comment: [email or web address] Performed By: #### L [id number] ####[facility] (BEAKER)[address] [place] [address] Glucose [Mass/Vol] 173 mg/dL High 70-105 [facility] Comment on above: Order Comment: Waive d Testing in the ED is performed under the ED CLIA certificate #[id number]. Result Comment: [email or web address] Performed By: #### L [id number] ####[facility] ([facility])[address] [place] [address] Glucose [Mass/Vol] 210 mg/dL High 70-105 [facility] Comment on above: Order Comment: Waive d Testing in the ED is performed under the ED CLIA certificate #[id number]. Result Comment: [email or web address] Performed By: #### L [id number] ####[facility] (BEAKER)[address] [place] [address] BASIC METABOLIC PANELon 08-21 Anion gap [Moles/Vol] 8 mmol/L Normal 7-20 [facility] Comment on above: Performed By: #### L [id number] ####[facility] (BEAKER)[address] [place] [address] Calcium [Mass/Vol] 9.9 mg/dL Normal 8.6-10.3 [facility] Comment on above: Performed By: #### L [id number] ####[facility] (BEAKER)[address] [place] [address] Chloride [Moles/Vol] 98 mmol/L Normal 98-107 [facility] Comment on above: Performed By: #### L [id number] ####[facility] ([facility])[address] [place] [address] CO2 [Moles/Vol] 33 mmol/L High 21-[address] [facility] Comment on above: Performed By: #### L [id number] ####[facility] ([facility])[address] [place] [address] Creatinine [Mass/Vol] 0.90 mg/dL Normal 0.70-1.30 [facility] Comment on above: Performed By: #### L [id number] ####[facility] ([facility])[address] [place] [address] GLOMERULAR FILTRATION RATE ML/MIN/1.73 SQ M.PREDICTED 94.8 mL/min/1.73m*2 Normal >60.0 [facility] Comment on above: Result Comment: [facility]???s estimated glomerular filtration rate (eGFR) will no [...] By: #### L [id number] ####[facility] [place] [address] Glucose [Mass/Vol] 142 mg/dL High 70-100 [facility] Comment on above: Performed By: #### L [id number] ####[facility] [place] [address] Potassium [Moles/Vol] 4.1 mmol/L Normal 3.5-5.1 [facility] Comment on above: Performed By: #### L [id number] ####[facility] ([facility])[address] [place] [address] Sodium [Moles/Vol] 135 mmol/L Low 136-145 [facility] Comment on above: Performed By: #### L [id number] ####[facility] ([facility])[address] [place] [address] Urea nitrogen [Mass/Vol] 19 mg/dL Normal 7-25 [facility] Comment on above: Performed By: #### L [id number] ####[facility] ([facility])[address] [place] [address] UREA NITROGEN/CREATININE (MASS RATIO) IN SER/PLAS 21.1 Normal [facility] Comment on above: Performed By: #### L [id number] ####[facility] ([facility])[address] [place] [address] CBC WITH AUTO DIFFERENTIALon 09-05-2024 Basophils (Bld) [#/Vol] 0.07 10*3/uL Normal 0.00-0.20 [facility] Comment on above: Performed By: #### L [id number] ####[facility] ([facility])[address] [place] [address] Basophils/100 WBC (Bld) 0.9 % Normal 0.0-1.0 [facility] Comment on above: Performed By: #### L [id number] ####[facility] ([facility])[address] [place] [address] Eosinophils (Bld) [#/Vol] 0.38 10*3/uL Normal 0.00-0.50 [facility] Comment on above: Performed By: #### L [id number] ####[facility] ([facility])[address] [facility] [place] [address] Eosinophils/100 WBC (Bld) 5.0 % Normal 0.0-6.0 [facility] Comment on above: Performed By: #### L [id number] ####[facility] ([facility])[address] [place] [address] Erythrocyte distribution width (RBC) [Ratio] 15.2 % High 11.5-15.0 [facility] Comment on above: Performed By: #### L [id number] ####[facility] [place] [address] ERYTHROCYTE MEAN CORPUSCULAR HEMOGLOBIN CONCENTRATION (G/DL) BY AUTOMATED 31.4 g/dL Low 32.0-35.0 [facility] Comment on above: Performed By: #### L [id number] ####[facility] (BEAKER)[address] [place] [address] Hematocrit (Bld) [Volume fraction] 47.1 % Normal 39.0-55.0 [facility] Comment on above: Performed By: #### L [id number] ####[facility] [place] [address] Hemoglobin (Bld) [Mass/Vol] 14.8 g/dL Normal 13.0-17.0 [facility] Comment on above: Performed By: #### L [id number] ####[facility] (BEAKER)[address] [place] [address] Immature granulocytes (Bld) [#/Vol] 0.06 10*3/uL Normal 0.00-0.20 [facility] Comment on above: Performed By: #### L [id number] ####[facility] (BEAKER)[address] [place] [address] Immature granulocytes/100 WBC (Bld) 0.8 % Normal 0.0-1.0 [facility] Comment on above: Performed By: #### L [id number] ####[facility] (BEAKER)[address] [place] [address] Lymphocytes (Bld) [#/Vol] 1.99 10*3/uL Normal 1.20-4.00 [facility] Comment on above: Performed By: #### L [id number] ####[facility] (BEAKER)[address] [place] [address] Lymphocytes/100 WBC (Bld) 26.0 % Normal 20.0-45.0 [facility] Comment on above: Performed By: #### L [id number] ####[facility] (BEAKER)[address] [place] [address] MCH (RBC) [Entitic mass] 28.8 pg Normal 27.0-33.0 [facility] Comment on above: Performed By: #### L [id number] ####[facility] (BEAKER)[address] [place] [address] MCV (RBC) [Entitic vol] 91.6 fL Normal 82.0-98.0 [facility] Comment on above: Performed By: #### L [id number] ####[facility] (BEAKER)[address] [place] [address] Monocytes (Bld) [#/Vol] 0.77 10*3/uL Normal 0.10-1.00 [facility] Comment on above: Performed By: #### L [id number] ####[facility] (BEAKER)[address] [place] [address] Monocytes/100 WBC (Bld) 10.1 % Normal 5.0-12.0 [facility] Comment on above: Performed By: #### L [id number] ####[facility] (BEAKER)[address] [place] [address] Neutrophils (Bld) [#/Vol] 4.39 10*3/uL Normal 1.60-7.60 [facility] Comment on above: Performed By: #### L [id number] ####[facility] (BEAKER)[address] [place] [address] Neutrophils/100 WBC (Bld) 57.2 % Normal 40.0-72.0 [facility] Comment on above: Performed By: #### L [id number] ####[facility] (BEAKER)[address] [place] [address] NRBC (PER 100 WBCS) BY AUTOMATED COUNT 0.0 % Normal 0 [facility] Comment on above: Performed By: #### L [id number] ####[facility] (BEAKER)[address] [place] [address] PLATELETS (10*3/UL) IN BLOOD AUTOMATED COUNT 274 10*3/uL Normal 150-400 [facility] Comment on above: Performed By: #### L [id number] ####[facility] ([facility])[address] [place] [address] RBC (Bld) [#/Vol] 5.14 10*6/uL Normal 4.20-5.70 [facility] Comment on above: Performed By: #### L [id number] ####[facility] ([facility])[address] [place] [address] WBC (Bld) [#/Vol] 7.66 10*3/uL Normal 4.00-10.60 [facility] Comment on above: Performed By: #### L [id number] ####[facility] ([facility])[address] [place] [address] MAGNESIUMon 09-05-2024 Magnesium [Mass/Vol] 1.6 mg/dL Low 1.9-2.7 [facility] Comment on above: Performed By: #### L [id number] ####[facility] ([facility])[address] [place] [address] PHOSPHORUSon 09-05-2024 Magnesium [Mass/Vol] 2.8 mg/dL Normal 2.5-5.0 [facility] Comment on above: Performed By: #### L [id number] ####[facility] ([facility])[address] [place] [address] POCT GLUCOSE METER UNSOLICIT ED RESULTSon 09-05-2024 Glucose [Mass/Vol] 221 mg/dL High 70-105 [facility] Comment on above: Order Comment: Waive d Testing in the ED is performed under the ED CLIA certificate #[id number]. Result Comment: [email or web address] Performed By: #### L [id number] ####[facility] ([facility])[address] [place] [address] Glucose [Mass/Vol] 204 mg/dL High 70-105 [facility] Comment on above: Order Comment: Waive d Testing in the ED is performed under the ED CLIA certificate #[id number]. Result Comment: [email or web address] Performed By: #### L [id number] ####[facility] (BEAKER)[address] [place] [address] Glucose [Mass/Vol] 222 mg/dL High 70-105 [facility] Comment on above: Order Comment: Waive d Testing in the ED is performed under the ED CLIA certificate #[id number]. Result Comment: [email or web address] Performed By: #### L [id number] ####[facility] (BEAKER)[address] [place] [address] Glucose [Mass/Vol] 141 mg/dL High 70-105 [facility] Comment on above: Order Comment: Waive d Testing in the ED is performed under the ED CLIA certificate #[id number]. Result Comment: [email or web address] Performed By: #### L [id number] ####[facility] (BEAKER)[address] [place] [address] 30on 09-04-2024 30 Normal [facility] BASIC METABOLIC PANELon 08-21 Anion gap [Moles/Vol] 7 mmol/L Normal 7-20 [facility] Comment on above: Performed By: #### L [id number] ####[facility] (BEAKER)[address] [place] [address] Calcium [Mass/Vol] 9.6 mg/dL Normal 8.6-10.3 [facility] Comment on above: Performed By: #### L [id number] ####[facility] (BEAKER)[address] [place] [address] Chloride [Moles/Vol] 98 mmol/L Normal 98-107 [facility] Comment on above: Performed By: #### L [id number] ####[facility] (BEAKER)[address] [place] [address] CO2 [Moles/Vol] 35 mmol/L High 21-[address] [facility] Comment on above: Performed By: #### L [id number] ####[facility] ([facility])[address] [place] [address] Creatinine [Mass/Vol] 0.88 mg/dL Normal 0.70-1.30 [facility] Comment on above: Performed By: #### L [id number] ####[facility] ([facility])[address] [place] [address] GLOMERULAR FILTRATION RATE ML/MIN/1.73 SQ M.PREDICTED 95.4 mL/min/1.73m*2 Normal >60.0 [facility] Comment on above: Result Comment: [facility]???s estimated glomerular filtration rate (eGFR) will no [...] By: #### L [id number] ####[facility] ([facility])[address] [place] [address] Glucose [Mass/Vol] 155 mg/dL High 70-100 [facility] Comment on above: Performed By: #### L [id number] ####[facility] ([facility])[address] [place] [address] Potassium [Moles/Vol] 4.3 mmol/L Normal 3.5-5.1 [facility] Comment on above: Performed By: #### L [id number] ####[facility] ([facility])[address] [address] Sodium [Moles/Vol] 136 mmol/L Normal 136-145 [facility] Comment on above: Performed By: #### L [id number] ####[facility] (BEAKER)[address] [place] [address] Urea nitrogen [Mass/Vol] 22 mg/dL Normal 7-25 [facility] Comment on above: Performed By: #### L [id number] ####[facility] ([facility])[address] [place] [place] [address] UREA NITROGEN/CREATININE (MASS RATIO) IN SER/PLAS 25.0 Normal [facility] Comment on above: Performed By: #### L [id number] ####[facility] ([facility])[address] [place] [address] CBC WITH AUTO DIFFERENTIALon 09-04-2024 Basophils (Bld) [#/Vol] 0.06 10*3/uL Normal 0.00-0.20 [facility] Comment on above: Performed By: #### L [id number] ####[facility] ([facility])[address] [place] [address] Basophils/100 WBC (Bld) 1.0 % Normal 0.0-1.0 [facility] Comment on above: Performed By: #### L [id number] ####[facility] (BEAKER)[address] [place] [address] Eosinophils (Bld) [#/Vol] 0.38 10*3/uL Normal 0.00-0.50 [facility] Comment on above: Performed By: #### L [id number] ####[facility] [place] [address] Eosinophils/100 WBC (Bld) 6.1 % High 0.0-6.0 [facility] Comment on above: Performed By: #### L [id number] ####[facility] (BEAKER)[address] [place] [address] Erythrocyte distribution width (RBC) [Ratio] 15.2 % High 11.5-15.0 [facility] Comment on above: Performed By: #### L [id number] ####[facility] (BEAKER)[address] [place] [address] ERYTHROCYTE MEAN CORPUSCULAR HEMOGLOBIN CONCENTRATION (G/DL) BY AUTOMATED 30.6 g/dL Low 32.0-35.0 [facility] Comment on above: Performed By: #### L [id number] ####[facility] [place] [address] Hematocrit (Bld) [Volume fraction] 48.4 % Normal 39.0-55.0 [facility] Comment on above: Performed By: #### L [id number] ####[facility] ([facility])[address] [place] [address] Hemoglobin (Bld) [Mass/Vol] 14.8 g/dL Normal 13.0-17.0 [facility] Comment on above: Performed By: #### L [id number] ####[facility] [place] [address] Immature granulocytes (Bld) [#/Vol] 0.04 10*3/uL Normal 0.00-0.20 [facility] Comment on above: Performed By: #### L [id number] ####[facility] [place] [address] Immature granulocytes/100 WBC (Bld) 0.6 % Normal 0.0-1.0 [facility] Comment on above: Performed By: #### L [id number] ####[facility] (BEAKER)[address] [place] [address] Lymphocytes (Bld) [#/Vol] 1.68 10*3/uL Normal 1.20-4.00 [facility] Comment on above: Performed By: #### L [id number] ####[facility] (BEAKER)[address] [place] [address] Lymphocytes/100 WBC (Bld) 27.1 % Normal 20.0-45.0 [facility] Comment on above: Performed By: #### L [id number] ####[facility] (BEAKER)[address] [place] [address] MCH (RBC) [Entitic mass] 28.6 pg Normal 27.0-33.0 [facility] Comment on above: Performed By: #### L [id number] ####[facility] [place] [address] MCV (RBC) [Entitic vol] 93.6 fL Normal 82.0-98.0 [facility] Comment on above: Performed By: #### L [id number] ####[facility] [place] [address] Monocytes (Bld) [#/Vol] 0.74 10*3/uL Normal 0.10-1.00 [facility] Comment on above: Performed By: #### L [id number] ####[facility] ([facility])[address] [place] [address] Monocytes/100 WBC (Bld) 11.9 % Normal 5.0-12.0 [facility] Comment on above: Performed By: #### L [id number] ####[facility] ([facility])[address] [place] [address] Neutrophils (Bld) [#/Vol] 3.31 10*3/uL Normal 1.60-7.60 [facility] Comment on above: Performed By: #### L [id number] ####[facility] ([facility])[address] [place] [address] Neutrophils/100 WBC (Bld) 53.3 % Normal 40.0-72.0 [facility] Comment on above: Performed By: #### L [id number] ####[facility] [place] [address] NRBC (PER 100 WBCS) BY AUTOMATED COUNT 0.0 % Normal 0 [facility] Comment on above: Performed By: #### L [id number] ####[facility] [place] [address] PLATELETS (10*3/UL) IN BLOOD AUTOMATED COUNT 254 10*3/uL Normal 150-400 [facility] Comment on above: Performed By: #### L [id number] ####[facility] [place] [address] RBC (Bld) [#/Vol] 5.17 10*6/uL Normal 4.20-5.70 [facility] Comment on above: Performed By: #### L [id number] ####[facility] ([facility])[address] [place] [address] WBC (Bld) [#/Vol] 6.21 10*3/uL Normal 4.00-10.60 [facility] Comment on above: Performed By: #### L [id number] ####[facility] ([facility])[address] [place] [address] POCT GLUCOSE METER UNSOLICIT ED RESULTSon 09-04-2024 Glucose [Mass/Vol] 219 mg/dL High 70-105 [facility] Comment on above: Order Comment: Waive d Testing in the ED is performed under the ED CLIA certificate #[id number]. Result Comment: [email or web address] Performed By: #### L [id number] ####[facility] ([facility])[address] [place] [address] Glucose [Mass/Vol] 156 mg/dL High 70-105 [facility] Comment on above: Order Comment: Waive d Testing in the ED is performed under the ED CLIA certificate #[id number]. Result Comment: [email or web address] Performed By: #### L [id number] ####[facility] ([facility])[address] [place] [address] Glucose [Mass/Vol] 190 mg/dL High 70-105 [facility] Comment on above: Order Comment: Waive d Testing in the ED is performed under the ED CLIA certificate #[id number]. Result Comment: [email or web address] Performed By: #### L [id number] ####[facility] [place] [address] Glucose [Mass/Vol] 149 mg/dL High 70-105 [facility] Comment on above: Order Comment: Waive d Testing in the ED is performed under the ED CLIA certificate #[id number]. Result Comment: [email or web address] Performed By: #### L [id number] ####[facility] (BEAKER)[address] [place] [address] 30on 09-03-2024 30 Normal [facility] BASIC METABOLIC PANELon 08-21 Anion gap [Moles/Vol] 11 mmol/L Normal 7-20 [facility] Comment on above: Performed By: #### L [id number] ####[facility] (BEAKER)[address] [place] [address] Calcium [Mass/Vol] 9.7 mg/dL Normal 8.6-10.3 [facility] Comment on above: Performed By: #### L [id number] ####[facility] (BEAKER)[address] [place] [address] Chloride [Moles/Vol] 96 mmol/L Low 98-107 [facility] Comment on above: Performed By: #### L [id number] ####[facility] (BEAKER)[address] [place] [address] CO2 [Moles/Vol] 33 mmol/L High 21-[address] [facility] Comment on above: Performed By: #### L [id number] ####[facility] (BEAKER)[address] [place] [address] Creatinine [Mass/Vol] 0.87 mg/dL Normal 0.70-1.30 [facility] Comment on above: Performed By: #### L [id number] ####[facility] (BEAKER)[address] [place] [address] GLOMERULAR FILTRATION RATE ML/MIN/1.73 SQ M.PREDICTED 95.8 mL/min/1.73m*2 Normal >60.0 [facility] Comment on above: Result Comment: [facility]???s estimated glomerular filtration rate (eGFR) will no [...] By: #### L [id number] ####[facility] ([facility])[address] [place] [address] Glucose [Mass/Vol] 161 mg/dL High 70-100 [facility] Comment on above: Performed By: #### L [id number] ####[facility] ([facility])[address] [place] [address] Potassium [Moles/Vol] 4.2 mmol/L Normal 3.5-5.1 [facility] Comment on above: Performed By: #### L [id number] ####[facility] ([facility])[address] [address] Sodium [Moles/Vol] 136 mmol/L Normal 136-145 [facility] Comment on above: Performed By: #### L [id number] ####[facility] ([facility])[address] [place] [address] Urea nitrogen [Mass/Vol] 23 mg/dL Normal 7-25 [facility] Comment on above: Performed By: #### L [id number] ####[facility] ([facility])[address] [address] UREA NITROGEN/CREATININE (MASS RATIO) IN SER/PLAS 26.4 Normal [facility] Comment on above: Performed By: #### L [id number] ####[facility] ([facility])[address] [address] CBC WITH AUTO DIFFERENTIALon 09-03-2024 Basophils (Bld) [#/Vol] 0.07 10*3/uL Normal 0.00-0.20 [facility] Comment on above: Performed By: #### L [id number] ####[facility] ([facility])[address] [place] [address] Basophils/100 WBC (Bld) 0.8 % Normal 0.0-1.0 [facility] Comment on above: Performed By: #### L [id number] ####[facility] (BEAKER)[address] [place] [address] Eosinophils (Bld) [#/Vol] 0.40 10*3/uL Normal 0.00-0.50 [facility] Comment on above: Performed By: #### L [id number] ####[facility] (BEAKER)[address] [place] [address] Eosinophils/100 WBC (Bld) 4.8 % Normal 0.0-6.0 [facility] Comment on above: Performed By: #### L [id number] ####[facility] (BEAKER)[address] [place] [address] Erythrocyte distribution width (RBC) [Ratio] 15.3 % High 11.5-15.0 [facility] Comment on above: Performed By: #### L [id number] ####[facility] (BEAKER)[address] [place] [address] ERYTHROCYTE MEAN CORPUSCULAR HEMOGLOBIN CONCENTRATION (G/DL) BY AUTOMATED 31.8 g/dL Low 32.0-35.0 [facility] Comment on above: Performed By: #### L [id number] ####[facility] (BEAKER)[address] [place] [address] Hematocrit (Bld) [Volume fraction] 46.8 % Normal 39.0-55.0 [facility] Comment on above: Performed By: #### L [id number] ####[facility] (BEAKER)[address] [place] [address] Hemoglobin (Bld) [Mass/Vol] 14.9 g/dL Normal 13.0-17.0 [facility] Comment on above: Performed By: #### L [id number] ####[facility] (BEAKER)[address] [place] [address] Immature granulocytes (Bld) [#/Vol] 0.05 10*3/uL Normal 0.00-0.20 [facility] Comment on above: Performed By: #### L [id number] ####[facility] (BEAKER)[address] [place] [address] Immature granulocytes/100 WBC (Bld) 0.6 % Normal 0.0-1.0 [facility] Comment on above: Performed By: #### L [id number] ####[facility] (BEAKER)[address] [place] [address] Lymphocytes (Bld) [#/Vol] 1.73 10*3/uL Normal 1.20-4.00 [facility] Comment on above: Performed By: #### L [id number] ####[facility] (BEAKER)[address] [place] [address] Lymphocytes/100 WBC (Bld) 20.9 % Normal 20.0-45.0 [facility] Comment on above: Performed By: #### L [id number] ####[facility] (BEAKER)[address] [place] [address] MCH (RBC) [Entitic mass] 29.3 pg Normal 27.0-33.0 [facility] Comment on above: Performed By: #### L [id number] ####[facility] (BEAKER)[address] [place] [address] MCV (RBC) [Entitic vol] 91.9 fL Normal 82.0-98.0 [facility] Comment on above: Performed By: #### L [id number] ####[facility] (BEAKER)[address] [place] [address] Monocytes (Bld) [#/Vol] 0.96 10*3/uL Normal 0.10-1.00 [facility] Comment on above: Performed By: #### L [id number] ####[facility] (BEAKER)[address] [place] [address] Monocytes/100 WBC (Bld) 11.6 % Normal 5.0-12.0 [facility] Comment on above: Performed By: #### L [id number] ####[facility] ([facility])[address] [place] [address] Neutrophils (Bld) [#/Vol] 5.06 10*3/uL Normal 1.60-7.60 [facility] Comment on above: Performed By: #### L [id number] ####[facility] ([facility])[address] [place] [address] Neutrophils/100 WBC (Bld) 61.3 % Normal 40.0-72.0 [facility] Comment on above: Performed By: #### L [id number] ####[facility] ([facility])[address] [place] [address] NRBC (PER 100 WBCS) BY AUTOMATED COUNT 0.0 % Normal 0 [facility] Comment on above: Performed By: #### L [id number] ####[facility] ([facility])[address] [place] [address] PLATELETS (10*3/UL) IN BLOOD AUTOMATED COUNT 264 10*3/uL Normal 150-400 [facility] Comment on above: Performed By: #### L [id number] ####[facility] ([facility])[address] [address] RBC (Bld) [#/Vol] 5.09 10*6/uL Normal 4.20-5.70 [facility] Comment on above: Performed By: #### L [id number] ####[facility] ([facility])[address] [address] WBC (Bld) [#/Vol] 8.27 10*3/uL Normal 4.00-10.60 [facility] Comment on above: Performed By: #### L [id number] ####[facility] ([facility])[address] [place] [address] MAGNESIUMon 09-03-2024 Magnesium [Mass/Vol] 1.6 mg/dL Low 1.9-2.7 [facility] Comment on above: Performed By: #### L [id number] ####[facility] ([facility])[address] [place] [address] PHOSPHORUSon 09-03-2024 Magnesium [Mass/Vol] 3.3 mg/dL Normal 2.5-5.0 [facility] Comment on above: Performed By: #### L [id number] ####[facility] ([facility])[address] [place] [address] POCT GLUCOSE METER UNSOLICIT ED RESULTSon 09-03-2024 Glucose [Mass/Vol] 168 mg/dL High 70-105 [facility] Comment on above: Order Comment: Waive d Testing in the ED is performed under the ED CLIA certificate #[id number]. Result Comment: [email or web address] Performed By: #### L [id number] ####[facility] ([facility])[address] [place] [address] Glucose [Mass/Vol] 184 mg/dL High 70-105 [facility] Comment on above: Order Comment: Waive d Testing in the ED is performed under the ED CLIA certificate #[id number]. Result Comment: [email or web address] Performed By: #### L [id number] ####[facility] ([facility])[address] [place] [address] Glucose [Mass/Vol] 205 mg/dL High 70-105 [facility] Comment on above: Order Comment: Waive d Testing in the ED is performed under the ED CLIA certificate #[id number]. Result Comment: [id number] Performed By: #### L [id number] ####[facility] ([facility])[address] [place] [address] Glucose [Mass/Vol] 145 mg/dL High 70-105 [facility] Comment on above: Order Comment: Waive d Testing in the ED is performed under the ED CLIA certificate #[id number]. Result Comment: [id number] Performed By: #### L [id number] ####[facility] (BE[facility])[address] [place] [address] 30on 09-02-2024 30 Normal [facility] BASIC METABOLIC PANELon 08-21 Anion gap [Moles/Vol] 8 mmol/L Normal 7-20 [facility] Comment on above: Performed By: #### L [id number] ####[facility] (BEAKER)[address] [place] [address] Calcium [Mass/Vol] 9.5 mg/dL Normal 8.6-10.3 [facility] Comment on above: Performed By: #### L [id number] ####[facility] (BEAKER)[address] [place] [address] Chloride [Moles/Vol] 99 mmol/L Normal 98-107 [facility] Comment on above: Performed By: #### L [id number] ####[facility] (BEAKER)[address] [place] [address] CO2 [Moles/Vol] 37 mmol/L High 21-[address] [facility] Comment on above: Performed By: #### L [id number] ####[facility] (BEAKER)[address] [place] [address] Creatinine [Mass/Vol] 0.77 mg/dL Normal 0.70-1.30 [facility] Comment on above: Performed By: #### L [id number] ####[facility] (BEAKER)[address] [place] [address] GLOMERULAR FILTRATION RATE ML/MIN/1.73 SQ M.PREDICTED 99.4 mL/min/1.73m*2 Normal >60.0 [facility] Comment on above: Result Comment: [facility]???s estimated glomerular filtration rate (eGFR) will no [...] By: #### L [id number] ####[facility] ([facility])[address] [place] [address] Glucose [Mass/Vol] 160 mg/dL High 70-100 [facility] Comment on above: Performed By: #### L [id number] ####[facility] ([facility])[address] [place] [address] Potassium [Moles/Vol] 4.1 mmol/L Normal 3.5-5.1 [facility] Comment on above: Performed By: #### L [id number] ####[facility] ([facility])[address] [place] [address] Sodium [Moles/Vol] 140 mmol/L Normal 136-145 [facility] Comment on above: Performed By: #### L [id number] ####[facility] ([facility])[address] [place] [address] Urea nitrogen [Mass/Vol] 16 mg/dL Normal 7-25 [facility] Comment on above: Performed By: #### L [id number] ####[facility] ([facility])[address] [place] [address] UREA NITROGEN/CREATININE (MASS RATIO) IN SER/PLAS 20.8 Normal [facility] Comment on above: Performed By: #### L [id number] ####[facility] ([facility])[address] [place] [address] CBC WITH AUTO DIFFERENTIALon 09-02-2024 Basophils (Bld) [#/Vol] 0.07 10*3/uL Normal 0.00-0.20 [facility] Comment on above: Performed By: #### L [id number] ####[facility] ([facility])[address] [place] [address] Basophils/100 WBC (Bld) 1.0 % Normal 0.0-1.0 [facility] Comment on above: Performed By: #### L [id number] ####[facility] (BEAKER)[address] [place] [address] Eosinophils (Bld) [#/Vol] 0.34 10*3/uL Normal 0.00-0.50 [facility] Comment on above: Performed By: #### L [id number] ####[facility] (BEAKER)[address] [place] [address] Eosinophils/100 WBC (Bld) 5.0 % Normal 0.0-6.0 [facility] Comment on above: Performed By: #### L [id number] ####[facility] ([facility])[address] [place] [address] Erythrocyte distribution width (RBC) [Ratio] 15.1 % High 11.5-15.0 [facility] Comment on above: Performed By: #### L [id number] ####[facility] ([facility])[address] [place] [address] ERYTHROCYTE MEAN CORPUSCULAR HEMOGLOBIN CONCENTRATION (G/DL) BY AUTOMATED 31.0 g/dL Low 32.0-35.0 [facility] Comment on above: Performed By: #### L [id number] ####[facility] ([facility])[address] [place] [address] Hematocrit (Bld) [Volume fraction] 46.2 % Normal 39.0-55.0 [facility] Comment on above: Performed By: #### L [id number] ####[facility] [place] [address] Hemoglobin (Bld) [Mass/Vol] 14.3 g/dL Normal 13.0-17.0 [facility] Comment on above: Performed By: #### L [id number] ####[facility] [place] [address] Immature granulocytes (Bld) [#/Vol] 0.04 10*3/uL Normal 0.00-0.20 [facility] Comment on above: Performed By: #### L [id number] ####[facility] (BEAKER)[address] [place] [address] Immature granulocytes/100 WBC (Bld) 0.6 % Normal 0.0-1.0 [facility] Comment on above: Performed By: #### L [id number] ####[facility] (BEAKER)[address] [place] [address] Lymphocytes (Bld) [#/Vol] 1.60 10*3/uL Normal 1.20-4.00 [facility] Comment on above: Performed By: #### L [id number] ####[facility] (BEAKER)[address] [place] [address] Lymphocytes/100 WBC (Bld) 23.7 % Normal 20.0-45.0 [facility] Comment on above: Performed By: #### L [id number] ####[facility] (BEAKER)[address] [place] [address] MCH (RBC) [Entitic mass] 28.8 pg Normal 27.0-33.0 [facility] Comment on above: Performed By: #### L [id number] ####[facility] (BEAKER)[address] [place] [address] MCV (RBC) [Entitic vol] 93.1 fL Normal 82.0-98.0 [facility] Comment on above: Performed By: #### L [id number] ####[facility] (BEAKER)[address] [place] [address] Monocytes (Bld) [#/Vol] 0.86 10*3/uL Normal 0.10-1.00 [facility] Comment on above: Performed By: #### L [id number] ####[facility] (BEAKER)[address] [facility] [address] Monocytes/100 WBC (Bld) 12.8 % High 5.0-12.0 [facility] Comment on above: Performed By: #### L [id number] ####[facility] (BEAKER)[address] [place] [address] Neutrophils (Bld) [#/Vol] 3.83 10*3/uL Normal 1.60-7.60 [facility] Comment on above: Performed By: #### L [id number] ####[facility] ([facility])[address] [place] [address] Neutrophils/100 WBC (Bld) 56.9 % Normal 40.0-72.0 [facility] Comment on above: Performed By: #### L [id number] ####[facility] ([facility])[address] [place] [address] NRBC (PER 100 WBCS) BY AUTOMATED COUNT 0.0 % Normal 0 [facility] Comment on above: Performed By: #### L [id number] ####[facility] ([facility])[address] [place] [address] PLATELETS (10*3/UL) IN BLOOD AUTOMATED COUNT 264 10*3/uL Normal 150-400 [facility] Comment on above: Performed By: #### L [id number] ####[facility] ([facility])[address] [place] [address] RBC (Bld) [#/Vol] 4.96 10*6/uL Normal 4.20-5.70 [facility] Comment on above: Performed By: #### L [id number] ####[facility] ([facility])[address] [place] [address] WBC (Bld) [#/Vol] 6.74 10*3/uL Normal 4.00-10.60 [facility] Comment on above: Performed By: #### L [id number] ####[facility] ([facility])[address] [place] [address] NURSNOTEon 09-02-2024 NURSNOTE Normal [facility] NURSNOTE Normal [facility] PHOSPHORUSon 09-02-2024 Magnesium [Mass/Vol] 3.1 mg/dL Normal 2.5-5.0 [facility] Comment on above: Performed By: #### L [id number] ####[facility] (BEAKER)[address] [place] [address] POCT GLUCOSE METER UNSOLICIT ED RESULTSon 09-02-2024 Glucose [Mass/Vol] 289 mg/dL High 70-105 [facility] Comment on above: Order Comment: Waive d Testing in the ED is performed under the ED CLIA certificate #[id number]. Result Comment: [email or web address] Performed By: #### L [id number] ####[facility] ([facility])[address] [place] [address] Glucose [Mass/Vol] 260 mg/dL High 70-105 [facility] Comment on above: Order Comment: Waive d Testing in the ED is performed under the ED CLIA certificate #[id number]. Result Comment: [email or web address] Performed By: #### L [id number] ####[facility] ([facility])[address] [place] [address] Glucose [Mass/Vol] 204 mg/dL High 70-105 [facility] Comment on above: Order Comment: Waive d Testing in the ED is performed under the ED CLIA certificate #[id number]. Result Comment: [email or web address] Performed By: #### L [id number] ####[facility] ([facility])[address] [place] [address] Glucose [Mass/Vol] 166 mg/dL High 70-105 [facility] Comment on above: Order Comment: Waive d Testing in the ED is performed under the ED CLIA certificate #[id number]. Result Comment: [email or web address] Performed By: #### L [id number] ####[facility] ([facility])[address] [place] [address] 30on 09-01-2024 30 Normal [facility] BASIC METABOLIC PANELon 08-21 Anion gap [Moles/Vol] 7 mmol/L Normal 7-20 [facility] Comment on above: Performed By: #### L [id number] ####[facility] (mobile mum)[address] [place] [address] Calcium [Mass/Vol] 9.1 mg/dL Normal 8.6-10.3 [facility] Comment on above: Performed By: #### L [id number] ####[facility] [place] [address] Chloride [Moles/Vol] 98 mmol/L Normal 98-107 [facility] Comment on above: Performed By: #### L [id number] ####[facility] ([facility])[address] [place] [address] CO2 [Moles/Vol] 36 mmol/L High 21-[address] [facility] Comment on above: Performed By: #### L [id number] ####[facility] ([facility])[address] [place] [address] Creatinine [Mass/Vol] 0.84 mg/dL Normal 0.70-1.30 [facility] Comment on above: Performed By: #### L [id number] ####[facility] ([facility])[address] [place] [address] GLOMERULAR FILTRATION RATE ML/MIN/1.73 SQ M.PREDICTED 96.8 mL/min/1.73m*2 Normal >60.0 [facility] Comment on above: Result Comment: [facility]???s estimated glomerular filtration rate (eGFR) will no [...] By: #### L [id number] ####[facility] [place] [address] Glucose [Mass/Vol] 190 mg/dL High 70-100 [facility] Comment on above: Performed By: #### L [id number] ####[facility] [place] [address] Potassium [Moles/Vol] 4.1 mmol/L Normal 3.5-5.1 [facility] Comment on above: Performed By: #### L [id number] ####[facility] ([facility] [place] [address] Sodium [Moles/Vol] 137 mmol/L Normal 136-145 [facility] Comment on above: Performed By: #### L [id number] ####[facility] ([facility] [place] [address] Urea nitrogen [Mass/Vol] 18 mg/dL Normal 7-25 [facility] Comment on above: Performed By: #### L [id number] ####[facility] ([facility])[address] [place] [address] UREA NITROGEN/CREATININE (MASS RATIO) IN SER/PLAS 21.4 Normal [facility] Comment on above: Performed By: #### L [id number] ####[facility] ([facility] [place] [address] CBC WITH AUTO DIFFERENTIALon 09-01-2024 Basophils (Bld) [#/Vol] 0.07 10*3/uL Normal 0.00-0.20 [facility] Comment on above: Performed By: #### L [id number] ####[facility] (BEAKER)[address] [place] [address] Basophils/100 WBC (Bld) 1.0 % Normal 0.0-1.0 [facility] Comment on above: Performed By: #### L [id number] ####[facility] (BEAKER)[address] [place] [address] Eosinophils (Bld) [#/Vol] 0.37 10*3/uL Normal 0.00-0.50 [facility] Comment on above: Performed By: #### L [id number] ####[facility] (BEAKER)[address] [place] [address] Eosinophils/100 WBC (Bld) 5.1 % Normal 0.0-6.0 [facility] Comment on above: Performed By: #### L [id number] ####[facility] ([facility])[address] [place] [address] Erythrocyte distribution width (RBC) [Ratio] 15.1 % High 11.5-15.0 [facility] Comment on above: Performed By: #### L [id number] ####[facility] ([facility])[address] [place] [address] ERYTHROCYTE MEAN CORPUSCULAR HEMOGLOBIN CONCENTRATION (G/DL) BY AUTOMATED 31.3 g/dL Low 32.0-35.0 [facility] Comment on above: Performed By: #### L [id number] ####[facility] ([facility])[address] [place] [address] Hematocrit (Bld) [Volume fraction] 46.3 % Normal 39.0-55.0 [facility] Comment on above: Performed By: #### L [id number] ####[facility] ([facility])[address] [place] [address] Hemoglobin (Bld) [Mass/Vol] 14.5 g/dL Normal 13.0-17.0 [facility] Comment on above: Performed By: #### L [id number] ####[facility] [place] [address] Immature granulocytes (Bld) [#/Vol] 0.04 10*3/uL Normal 0.00-0.20 [facility] Comment on above: Performed By: #### L [id number] ####[facility] [place] [address] Immature granulocytes/100 WBC (Bld) 0.6 % Normal 0.0-1.0 [facility] Comment on above: Performed By: #### L [id number] ####[facility] (BEAKER)[address] [place] [address] Lymphocytes (Bld) [#/Vol] 1.46 10*3/uL Normal 1.20-4.00 [facility] Comment on above: Performed By: #### L [id number] ####[facility] (BEAKER)[address] [place] [address] Lymphocytes/100 WBC (Bld) 20.2 % Normal 20.0-45.0 [facility] Comment on above: Performed By: #### L [id number] ####[facility] (BEAKER)[address] [place] [address] MCH (RBC) [Entitic mass] 29.1 pg Normal 27.0-33.0 [facility] Comment on above: Performed By: #### L [id number] ####[facility] (BEAKER)[address] [place] [address] MCV (RBC) [Entitic vol] 92.8 fL Normal 82.0-98.0 [facility] Comment on above: Performed By: #### L [id number] ####[facility] (BEAKER)[address] [place] [address] Monocytes (Bld) [#/Vol] 0.85 10*3/uL Normal 0.10-1.00 [facility] Comment on above: Performed By: #### L [id number] ####[facility] (BEAKER)[address] [place] [address] Monocytes/100 WBC (Bld) 11.8 % Normal 5.0-12.0 [facility] Comment on above: Performed By: #### L [id number] ####[facility] (BEAKER)[address] [place] [address] Neutrophils (Bld) [#/Vol] 4.43 10*3/uL Normal 1.60-7.60 [facility] Comment on above: Performed By: #### L [id number] ####[facility] (BEAKER)[address] [place] [address] Neutrophils/100 WBC (Bld) 61.3 % Normal 40.0-72.0 [facility] Comment on above: Performed By: #### L [id number] ####[facility] (BEAKER)[address] [place] [address] NRBC (PER 100 WBCS) BY AUTOMATED COUNT 0.0 % Normal 0 [facility] Comment on above: Performed By: #### L [id number] ####[facility] ([facility])[address] [place] [address] PLATELETS (10*3/UL) IN BLOOD AUTOMATED COUNT 268 10*3/uL Normal 150-400 [facility] Comment on above: Performed By: #### L [id number] ####[facility] ([facility])[address] [place] [address] RBC (Bld) [#/Vol] 4.99 10*6/uL Normal 4.20-5.70 [facility] Comment on above: Performed By: #### L [id number] ####[facility] ([facility])[address] [place] [address] WBC (Bld) [#/Vol] 7.22 10*3/uL Normal 4.00-10.60 [facility] Comment on above: Performed By: #### L [id number] ####[facility] ([facility])[address] [place] [address] MAGNESIUMon 09-01-2024 Magnesium [Mass/Vol] 1.8 mg/dL Low 1.9-2.7 [facility] Comment on above: Performed By: #### L [id number] ####[facility] ([facility])[address] [place] [address] POCT GLUCOSE METER UNSOLICIT ED RESULTSon 09-01-2024 Glucose [Mass/Vol] 225 mg/dL High 70-105 [facility] Comment on above: Order Comment: Waive d Testing in the ED is performed under the ED CLIA certificate #[id number]. Result Comment: [email or web address] Performed By: #### L [id number] ####[facility] ([facility])[address] [place] [address] Glucose [Mass/Vol] 181 mg/dL High 70-105 [facility] Comment on above: Order Comment: Waive d Testing in the ED is performed under the ED CLIA certificate #[id number]. Result Comment: [email or web address] Performed By: #### L [id number] ####[facility] (BEAKER)[address] [place] [address] Glucose [Mass/Vol] 209 mg/dL High 70-105 [facility] Comment on above: Order Comment: Waive d Testing in the ED is performed under the ED CLIA certificate #[id number]. Result Comment: [email or web address] Performed By: #### L [id number] ####[facility] (BEAKER)[address] [place] [address] Glucose [Mass/Vol] 181 mg/dL High 70-105 [facility] Comment on above: Order Comment: Waive d Testing in the ED is performed under the ED CLIA certificate #[id number]. Result Comment: [email or web address] Performed By: #### L [id number] ####[facility] (BEAKER)[address] [place] [address] 30on 08-31-2024 30 Normal [facility] 30 Normal [facility] BASIC METABOLIC PANELon 08-21 Anion gap [Moles/Vol] 8 mmol/L Normal 7-20 [facility] Comment on above: Performed By: #### L [id number] ####[facility] (BEAKER)[address] [place] [address] Calcium [Mass/Vol] 9.6 mg/dL Normal 8.6-10.3 [facility] Comment on above: Performed By: #### L [id number] ####[facility] (BEAKER)[address] [place] [address] Chloride [Moles/Vol] 97 mmol/L Low 98-107 [facility] Comment on above: Performed By: #### L [id number] ####[facility] (BEAKER)[address] [place] [address] CO2 [Moles/Vol] 35 mmol/L High 21-[address] [facility] Comment on above: Performed By: #### L [id number] ####[facility] ([facility])[address] [place] [address] Creatinine [Mass/Vol] 0.85 mg/dL Normal 0.70-1.30 [facility] Comment on above: Performed By: #### L [id number] ####[facility] ([facility])[address] [place] [address] GLOMERULAR FILTRATION RATE ML/MIN/1.73 SQ M.PREDICTED 96.4 mL/min/1.73m*2 Normal >60.0 [facility] Comment on above: Result Comment: [facility]???s estimated glomerular filtration rate (eGFR) will no [...] By: #### L [id number] ####[facility] ([facility])[address] [place] [address] Glucose [Mass/Vol] 205 mg/dL High 70-100 [facility] Comment on above: Performed By: #### L [id number] ####[facility] ([facility])[address] [place] [address] Potassium [Moles/Vol] 3.9 mmol/L Normal 3.5-5.1 [facility] Comment on above: Performed By: #### L [id number] ####[facility] ([facility])[address] [place] [address] Sodium [Moles/Vol] 136 mmol/L Normal 136-145 [facility] Comment on above: Performed By: #### L [id number] ####[facility] (BEAKER)[address] [place] [address] Urea nitrogen [Mass/Vol] 21 mg/dL Normal 7-25 [facility] Comment on above: Performed By: #### L [id number] ####[facility] (BEAKER)[address] [place] [address] UREA NITROGEN/CREATININE (MASS RATIO) IN SER/PLAS 24.7 Normal [facility] Comment on above: Performed By: #### L [id number] ####[facility] (BEAKER)[address] [place] [address] CBC WITH AUTO DIFFERENTIALon 08-31-2024 Basophils (Bld) [#/Vol] 0.06 10*3/uL Normal 0.00-0.20 [facility] Comment on above: Performed By: #### L [id number] ####[facility] [place] [address] Basophils/100 WBC (Bld) 0.8 % Normal 0.0-1.0 [facility] Comment on above: Performed By: #### L [id number] ####[facility] (BEAKER)[address] [place] [address] Eosinophils (Bld) [#/Vol] 0.38 10*3/uL Normal 0.00-0.50 [facility] Comment on above: Performed By: #### L [id number] ####[facility] (BEAKER)[address] [place], [place] [address] Eosinophils/100 WBC (Bld) 5.3 % Normal 0.0-6.0 [facility] Comment on above: Performed By: #### L [id number] ####[facility] (BEAKER)[address] [place] [address] Erythrocyte distribution width (RBC) [Ratio] 15.2 % High 11.5-15.0 [facility] Comment on above: Performed By: #### L [id number] ####[facility] (BEAKER)[address] [place] [address] ERYTHROCYTE MEAN CORPUSCULAR HEMOGLOBIN CONCENTRATION (G/DL) BY AUTOMATED 30.4 g/dL Low 32.0-35.0 [facility] Comment on above: Performed By: #### L [id number] ####[facility] (BEAKER)[address] [place] [address] Hematocrit (Bld) [Volume fraction] 48.3 % Normal 39.0-55.0 [facility] Comment on above: Performed By: #### L [id number] ####[facility] (BEAKER)[address] [place] [address] Hemoglobin (Bld) [Mass/Vol] 14.7 g/dL Normal 13.0-17.0 [facility] Comment on above: Performed By: #### L [id number] ####[facility] (BEAKER)[address] [place] [address] Immature granulocytes (Bld) [#/Vol] 0.06 10*3/uL Normal 0.00-0.20 [facility] Comment on above: Performed By: #### L [id number] ####[facility] (BEAKER)[address] [place] [address] Immature granulocytes/100 WBC (Bld) 0.8 % Normal 0.0-1.0 [facility] Comment on above: Performed By: #### L [id number] ####[facility] (BEAKER)[address] [place] [address] Lymphocytes (Bld) [#/Vol] 1.17 10*3/uL Low 1.20-4.00 [facility] Comment on above: Performed By: #### L [id number] ####[facility] (BEAKER)[address] [place] [address] Lymphocytes/100 WBC (Bld) 16.3 % Low 20.0-45.0 [facility] Comment on above: Performed By: #### L [id number] ####[facility] (BEAKER)[address] [place] [address] MCH (RBC) [Entitic mass] 29.0 pg Normal 27.0-33.0 [facility] Comment on above: Performed By: #### L [id number] ####[facility] ([facility])[address] [place] [address] MCV (RBC) [Entitic vol] 95.3 fL Normal 82.0-98.0 [facility] Comment on above: Performed By: #### L [id number] ####[facility] ([facility])[address] [place] [address] Monocytes (Bld) [#/Vol] 0.82 10*3/uL Normal 0.10-1.00 [facility] Comment on above: Performed By: #### L [id number] ####[facility] ([facility])[address] [place] [address] Monocytes/100 WBC (Bld) 11.4 % Normal 5.0-12.0 [facility] Comment on above: Performed By: #### L [id number] ####[facility] ([facility])[address] [place] [address] Neutrophils (Bld) [#/Vol] 4.70 10*3/uL Normal 1.60-7.60 [facility] Comment on above: Performed By: #### L [id number] ####[facility] ([facility])[address] [place] [address] Neutrophils/100 WBC (Bld) 65.4 % Normal 40.0-72.0 [facility] Comment on above: Performed By: #### L [id number] ####[facility] ([facility])[address] [place] [address] NRBC (PER 100 WBCS) BY AUTOMATED COUNT 0.0 % Normal 0 [facility] Comment on above: Performed By: #### L [id number] ####[facility] [place] [address] PLATELETS (10*3/UL) IN BLOOD AUTOMATED COUNT 278 10*3/uL Normal 150-400 [facility] Comment on above: Performed By: #### L [id number] ####[facility] ([facility])[address] [place] [address] RBC (Bld) [#/Vol] 5.07 10*6/uL Normal 4.20-5.70 [facility] Comment on above: Performed By: #### L [id number] ####[facility] ([facility])[address] [place] [address] WBC (Bld) [#/Vol] 7.19 10*3/uL Normal 4.00-10.60 [facility] Comment on above: Performed By: #### L [id number] ####[facility] ([facility])[address] [place] [address] MAGNESIUMon 08-31-2024 Magnesium [Mass/Vol] 1.6 mg/dL Low 1.9-2.7 [facility] Comment on above: Performed By: #### L [id number] ####[facility] ([facility])[address] [place] [address] POCT GLUCOSE METER UNSOLICIT ED RESULTSon 08-31-2024 Glucose [Mass/Vol] 281 mg/dL High 70-105 [facility] Comment on above: Order Comment: Waive d Testing in the ED is performed under the ED CLIA certificate #[id number]. Result Comment: [email or web address] Performed By: #### L [id number] ####[facility] ([facility])[address] [place] [address] Glucose [Mass/Vol] 157 mg/dL High 70-105 [facility] Comment on above: Order Comment: Waive d Testing in the ED is performed under the ED CLIA certificate #[id number]. Result Comment: [email or web address] Performed By: #### L [id number] ####[facility] ([facility])[address] [place] [address] Glucose [Mass/Vol] 212 mg/dL High 70-105 [facility] Comment on above: Order Comment: Waive d Testing in the ED is performed under the ED CLIA certificate #[id number]. Result Comment: [email or web address] Performed By: #### L [id number] ####[facility] (BEAKER)[address] [place] [address] Glucose [Mass/Vol] 167 mg/dL High 70-105 [facility] Comment on above: Order Comment: Waive d Testing in the ED is performed under the ED CLIA certificate #[id number]. Result Comment: [email or web address] Performed By: #### L [id number] ####[facility] (BEAKER)[address] [place] [address] 30on 08-30-2024 30 Normal [facility] BASIC METABOLIC PANELon 08-21 Anion gap [Moles/Vol] 10 mmol/L Normal 7-20 [facility] Comment on above: Performed By: #### L [id number] ####[facility] (BEAKER)[address] [place] [address] Calcium [Mass/Vol] 10.3 mg/dL Normal 8.6-10.3 [facility] Comment on above: Performed By: #### L [id number] ####[facility] (BEAKER)[address] [place] [address] Chloride [Moles/Vol] 94 mmol/L Low 98-107 [facility] Comment on above: Performed By: #### L [id number] ####[facility] (BEAKER)[address] [place] [address] CO2 [Moles/Vol] 34 mmol/L High 21-[address] [facility] Comment on above: Performed By: #### L [id number] ####[facility] (BEAKER)[address] [place] [address] Creatinine [Mass/Vol] 0.98 mg/dL Normal 0.70-1.30 [facility] Comment on above: Performed By: #### L [id number] ####[facility] (BEAKER)[address] [place] [address] GLOMERULAR FILTRATION RATE ML/MIN/1.73 SQ M.PREDICTED 85.6 mL/min/1.73m*2 Normal >60.0 [facility] Comment on above: Result Comment: [facility]???s estimated glomerular filtration rate (eGFR) will no [...] By: #### L [id number] ####[facility] ([facility])[address] [place] [address] Glucose [Mass/Vol] 184 mg/dL High 70-100 [facility] Comment on above: Performed By: #### L [id number] ####[facility] ([facility])[address] [place] [address] Potassium [Moles/Vol] 4.1 mmol/L Normal 3.5-5.1 [facility] Comment on above: Performed By: #### L [id number] ####[facility] ([facility])[address] [place] [address] Sodium [Moles/Vol] 134 mmol/L Low 136-145 [facility] Comment on above: Performed By: #### L [id number] ####[facility] ([facility])[address] [address] Urea nitrogen [Mass/Vol] 27 mg/dL High 7-25 [facility] Comment on above: Performed By: #### L [id number] ####[facility] ([facility])[address] [place] [address] UREA NITROGEN/CREATININE (MASS RATIO) IN SER/PLAS 27.6 Normal [facility] Comment on above: Performed By: #### L [id number] ####[facility] ([facility])[address] [place] [address] CBC WITH AUTO DIFFERENTIALon 08-30-2024 Basophils (Bld) [#/Vol] 0.09 10*3/uL Normal 0.00-0.20 [facility] Comment on above: Performed By: #### L [id number] ####[facility] (BEAKER)[address] [place], [place] [address] Basophils/100 WBC (Bld) 1.0 % Normal 0.0-1.0 [facility] Comment on above: Performed By: #### L [id number] ####[facility] (BEAKER)[address] [place], [place] [address] Eosinophils (Bld) [#/Vol] 0.54 10*3/uL High 0.00-0.50 [facility] Comment on above: Performed By: #### L [id number] ####[facility] (BEAKER)[address] [place] [address] Eosinophils/100 WBC (Bld) 5.9 % Normal 0.0-6.0 [facility] Comment on above: Performed By: #### L [id number] ####[facility] (BEAKER)[address] [place] [address] Erythrocyte distribution width (RBC) [Ratio] 14.9 % Normal 11.5-15.0 [facility] Comment on above: Performed By: #### L [id number] ####[facility] (BEAKER)[address] [place] [address] ERYTHROCYTE MEAN CORPUSCULAR HEMOGLOBIN CONCENTRATION (G/DL) BY AUTOMATED 31.0 g/dL Low 32.0-35.0 [facility] Comment on above: Performed By: #### L [id number] ####[facility] (BEAKER)[address] [place] [address] Hematocrit (Bld) [Volume fraction] 50.9 % Normal 39.0-55.0 [facility] Comment on above: Performed By: #### L [id number] ####[facility] (BEAKER)[address] [place] [address] Hemoglobin (Bld) [Mass/Vol] 15.8 g/dL Normal 13.0-17.0 [facility] Comment on above: Performed By: #### L [id number] ####[facility] (BEAKER)[address] [place] [address] Immature granulocytes (Bld) [#/Vol] 0.06 10*3/uL Normal 0.00-0.20 [facility] Comment on above: Performed By: #### L [id number] ####[facility] (BEAKER)[address] [place] [address] Immature granulocytes/100 WBC (Bld) 0.7 % Normal 0.0-1.0 [facility] Comment on above: Performed By: #### L [id number] ####[facility] (BEAKER)[address] [place] [address] Lymphocytes (Bld) [#/Vol] 1.65 10*3/uL Normal 1.20-4.00 [facility] Comment on above: Performed By: #### L [id number] ####[facility] (BEAKER)[address] [place] [address] Lymphocytes/100 WBC (Bld) 17.9 % Low 20.0-45.0 [facility] Comment on above: Performed By: #### L [id number] ####[facility] (BEAKER)[address] [place] [address] MCH (RBC) [Entitic mass] 29.2 pg Normal 27.0-33.0 [facility] Comment on above: Performed By: #### L [id number] ####[facility] (BEAKER)[address] [place] [address] MCV (RBC) [Entitic vol] 93.9 fL Normal 82.0-98.0 [facility] Comment on above: Performed By: #### L [id number] ####[facility] (BEAKER)[address] [place] [address] Monocytes (Bld) [#/Vol] 1.05 10*3/uL High 0.10-1.00 [facility] Comment on above: Performed By: #### L [id number] ####[facility] ([facility])[address] [place] [address] Monocytes/100 WBC (Bld) 11.4 % Normal 5.0-12.0 [facility] Comment on above: Performed By: #### L [id number] ####[facility] ([facility])[address] [place] [address] Neutrophils (Bld) [#/Vol] 5.82 10*3/uL Normal 1.60-7.60 [facility] Comment on above: Performed By: #### L [id number] ####[facility] ([facility])[address] [place] [address] Neutrophils/100 WBC (Bld) 63.1 % Normal 40.0-72.0 [facility] Comment on above: Performed By: #### L [id number] ####[facility] ([facility])[address] [place] [address] NRBC (PER 100 WBCS) BY AUTOMATED COUNT 0.0 % Normal 0 [facility] Comment on above: Performed By: #### L [id number] ####[facility] ([facility])[address] [place] [address] PLATELETS (10*3/UL) IN BLOOD AUTOMATED COUNT 298 10*3/uL Normal 150-400 [facility] Comment on above: Performed By: #### L [id number] ####[facility] [place] [address] RBC (Bld) [#/Vol] 5.42 10*6/uL Normal 4.20-5.70 [facility] Comment on above: Performed By: #### L [id number] ####[facility] (BEAKER)[address] [place] [address] WBC (Bld) [#/Vol] 9.21 10*3/uL Normal 4.00-10.60 [facility] Comment on above: Performed By: #### L [id number] ####[facility] ([facility])[address] [place] [address] CONSULTon 08-30-2024 CONSULT Normal [facility] MAGNESIUMon 08-30-2024 Magnesium [Mass/Vol] 1.7 mg/dL Low 1.9-2.7 [facility] Comment on above: Performed By: #### L [id number] ####[facility] ([facility])[address] [place] [address] NURSNOTEon 08-30-2024 NURSNOTE [facility] POCT GLUCOSE METER UNSOLICIT ED RESULTSon 08-30-2024 Glucose [Mass/Vol] 294 mg/dL High 70-105 [facility] Comment on above: Order Comment: Waive d Testing in the ED is performed under the ED CLIA certificate #[id number]. Result Comment: [email or web address] [id number] Value Noted Performed By: #### L [id number] ####[facility] ([facility])[address] [place] [address] Glucose [Mass/Vol] 162 mg/dL High 70-105 [facility] Comment on above: Order Comment: Waive d Testing in the ED is performed under the ED CLIA certificate #[id number]. Result Comment: abee rbo Performed By: #### L [id number] ####[facility] ([facility])[address] [place] [address] Glucose [Mass/Vol] 193 mg/dL High 70-105 [facility] Comment on above: Order Comment: Waive d Testing in the ED is performed under the ED CLIA certificate #[id number]. Result Comment: abee rbo Performed By: #### L [id number] ####[facility] ([facility])[address] [place] [address] Glucose [Mass/Vol] 235 mg/dL High 70-105 [facility] Comment on above: Order Comment: Waive d Testing in the ED is performed under the ED CLIA certificate #[id number]. Result Comment: [email or web address] Performed By: #### L [id number] ####[facility] (BEAKER)[address] [place] [address] Glucose [Mass/Vol] 209 mg/dL High 70-105 [facility] Comment on above: Order Comment: Waive d Testing in the ED is performed under the ED CLIA certificate #[id number]. Result Comment: [email or web address] [email or web address] Performed By: #### L [id number] ####[facility] (BEAKER)[address] [place] [address] BASIC METABOLIC PANELon 02-0 Anion gap [Moles/Vol] 7 mmol/L Normal 7-20 [facility] Comment on above: Performed By: #### L [id number] ####[facility] (BEAKER)[address] [place] [address] Calcium [Mass/Vol] 10.5 mg/dL High 8.6-10.3 [facility] Comment on above: Performed By: #### L [id number] ####[facility] (BEAKER)[address] [place] [address] Chloride [Moles/Vol] 93 mmol/L Low 98-107 [facility] Comment on above: Performed By: #### L [id number] ####[facility] (BEAKER)[address] [place] [address] CO2 [Moles/Vol] 38 mmol/L High 21-[address] [facility] Comment on above: Performed By: #### L [id number] ####[facility] (BEAKER)[address] [place] [address] Creatinine [Mass/Vol] 0.96 mg/dL Normal 0.70-1.30 [facility] Comment on above: Performed By: #### L [id number] ####[facility] (BEAKER)[address] [place] [address] GLOMERULAR FILTRATION RATE ML/MIN/1.73 SQ M.PREDICTED 87.7 mL/min/1.73m*2 Normal >60.0 [facility] Comment on above: Result Comment: [facility]???s estimated glomerular filtration rate (eGFR) will no [...] By: #### L [id number] ####[facility] ([facility])[address] [place] [address] Glucose [Mass/Vol] 182 mg/dL High 70-100 [facility] Comment on above: Performed By: #### L [id number] ####[facility] ([facility])[address] [place] [address] Potassium [Moles/Vol] 4.1 mmol/L Normal 3.5-5.1 [facility] Comment on above: Performed By: #### L [id number] ####[facility] ([facility])[address] [place] [address] Sodium [Moles/Vol] 134 mmol/L Low 136-145 [facility] Comment on above: Performed By: #### L [id number] ####[facility] ([facility])[address] [place] [address] Urea nitrogen [Mass/Vol] 23 mg/dL Normal 7-25 [facility] Comment on above: Performed By: #### L [id number] ####[facility] ([facility])[address] [place] [address] UREA NITROGEN/CREATININE (MASS RATIO) IN SER/PLAS 24.0 Normal [facility] Comment on above: Performed By: #### L [id number] ####[facility] ([facility])[address] [place] [address] CBC WITH AUTO DIFFERENTIALon 08-29-2024 Basophils (Bld) [#/Vol] 0.09 10*3/uL Normal 0.00-0.20 [facility] Comment on above: Performed By: #### L [id number] ####[facility] (BEAKER)[address] [place] [address] Basophils/100 WBC (Bld) 1.0 % Normal 0.0-1.0 [facility] Comment on above: Performed By: #### L [id number] ####[facility] (BEAKER)[address] [place] [address] Eosinophils (Bld) [#/Vol] 0.48 10*3/uL Normal 0.00-0.50 [facility] Comment on above: Performed By: #### L [id number] ####[facility] (BEAKER)[address] [place] [address] Eosinophils/100 WBC (Bld) 5.3 % Normal 0.0-6.0 [facility] Comment on above: Performed By: #### L [id number] ####[facility] (BEAKER)[address] [place] [address] Erythrocyte distribution width (RBC) [Ratio] 15.0 % Normal 11.5-15.0 [facility] Comment on above: Performed By: #### L [id number] ####[facility] (BEAKER)[address] [place] [address] ERYTHROCYTE MEAN CORPUSCULAR HEMOGLOBIN CONCENTRATION (G/DL) BY AUTOMATED 30.5 g/dL Low 32.0-35.0 [facility] Comment on above: Performed By: #### L [id number] ####[facility] (BEAKER)[address] [place] [address] Hematocrit (Bld) [Volume fraction] 51.2 % Normal 39.0-55.0 [facility] Comment on above: Performed By: #### L [id number] ####[facility] (BEAKER)[address] [place] [address] Hemoglobin (Bld) [Mass/Vol] 15.6 g/dL Normal 13.0-17.0 [facility] Comment on above: Performed By: #### L [id number] ####[facility] (BEAKER)[address] [place] [address] Immature granulocytes (Bld) [#/Vol] 0.07 10*3/uL Normal 0.00-0.20 [facility] Comment on above: Performed By: #### L [id number] ####[facility] (BEAKER)[address] [place] [address] Immature granulocytes/100 WBC (Bld) 0.8 % Normal 0.0-1.0 [facility] Comment on above: Performed By: #### L [id number] ####[facility] (BEAKER)[address] [place] [address] Lymphocytes (Bld) [#/Vol] 1.41 10*3/uL Normal 1.20-4.00 [facility] Comment on above: Performed By: #### L [id number] ####[facility] (BEAKER)[address] [place] [address] Lymphocytes/100 WBC (Bld) 15.7 % Low 20.0-45.0 [facility] Comment on above: Performed By: #### L [id number] ####[facility] (BEAKER)[address] [place] [address] MCH (RBC) [Entitic mass] 29.0 pg Normal 27.0-33.0 [facility] Comment on above: Performed By: #### L [id number] ####[facility] (BEAKER)[address] [place] [address] MCV (RBC) [Entitic vol] 95.2 fL Normal 82.0-98.0 [facility] Comment on above: Performed By: #### L [id number] ####[facility] (BEAKER)[address] [address] Monocytes (Bld) [#/Vol] 0.82 10*3/uL Normal 0.10-1.00 [facility] Comment on above: Performed By: #### L [id number] ####[facility] ([facility])[address] [place] [address] Monocytes/100 WBC (Bld) 9.1 % Normal 5.0-12.0 [facility] Comment on above: Performed By: #### L [id number] ####[facility] ([facility])[address] [place] [address] Neutrophils (Bld) [#/Vol] 6.11 10*3/uL Normal 1.60-7.60 [facility] Comment on above: Performed By: #### L [id number] ####[facility] ([facility])[address] [place] [address] Neutrophils/100 WBC (Bld) 68.1 % Normal 40.0-72.0 [facility] Comment on above: Performed By: #### L [id number] ####[facility] ([facility])[address] [place] [address] NRBC (PER 100 WBCS) BY AUTOMATED COUNT 0.0 % Normal 0 [facility] Comment on above: Performed By: #### L [id number] ####[facility] ([facility])[address] [place] [address] PLATELETS (10*3/UL) IN BLOOD AUTOMATED COUNT 262 10*3/uL Normal 150-400 [facility] Comment on above: Performed By: #### L [id number] ####[facility] ([facility])[address] [place] [address] RBC (Bld) [#/Vol] 5.38 10*6/uL Normal 4.20-5.70 [facility] Comment on above: Performed By: #### L [id number] ####[facility] ([facility])[address] [place] [address] WBC (Bld) [#/Vol] 8.98 10*3/uL Normal 4.00-10.60 [facility] Comment on above: Performed By: #### L [id number] ####[facility] ([facility])[address] [place] [address] MAGNESIUMon 08-29-2024 Magnesium [Mass/Vol] 1.7 mg/dL Low 1.9-2.7 [facility] Comment on above: Performed By: #### L [id number] ####[facility] ([facility])[address] [place] [address] POCT GLUCOSE METER UNSOLICIT ED RESULTSon 08-29-2024 Glucose [Mass/Vol] 284 mg/dL High 70-105 [facility] Comment on above: Order Comment: Waive d Testing in the ED is performed under the ED CLIA certificate #[id number]. Result Comment: sbel [email or web address] Performed By: #### L [id number] ####[facility] ([facility])[address] [place] [address] Glucose [Mass/Vol] 259 mg/dL High 70-105 [facility] Comment on above: Order Comment: Waive d Testing in the ED is performed under the ED CLIA certificate #[id number]. Result Comment: aall [email or web address] Performed By: #### L [id number] ####[facility] ([facility])[address] [place] [address] Glucose [Mass/Vol] 301 mg/dL High 70-105 [facility] Comment on above: Order Comment: Waive d Testing in the ED is performed under the ED CLIA certificate #[id number]. Result Comment: aall [email or web address] Performed By: #### L [id number] ####[facility] ([facility])[address] [place] [address] Glucose [Mass/Vol] 166 mg/dL High 70-105 [facility] Comment on above: Order Comment: Waive d Testing in the ED is performed under the ED CLIA certificate #[id number]. Result Comment: aall [email or web address] Performed By: #### L [id number] ####[facility] ([facility])[address] [place] [address] BASIC METABOLIC PANELon 02-0 8-2025 Anion gap [Moles/Vol] 8 mmol/L Normal 7-20 [facility] Comment on above: Performed By: #### L [id number] ####[facility] [place] [address] Calcium [Mass/Vol] 9.8 mg/dL Normal 8.6-10.3 [facility] Comment on above: Performed By: #### L [id number] ####[facility] [place] [address] Chloride [Moles/Vol] 96 mmol/L Low 98-107 [facility] Comment on above: Performed By: #### L [id number] ####[facility] [place] [address] CO2 [Moles/Vol] 37 mmol/L High 21-[address] [facility] Comment on above: Performed By: #### L [id number] ####[facility] [place] [address] Creatinine [Mass/Vol] 0.82 mg/dL Normal 0.70-1.30 [facility] Comment on above: Performed By: #### L [id number] ####[facility] [place] [address] GLOMERULAR FILTRATION RATE ML/MIN/1.73 SQ M.PREDICTED 97.5 mL/min/1.73m*2 Normal >60.0 [facility] Comment on above: Result Comment: [facility]???s estimated glomerular filtration rate (eGFR) will no [...] By: #### L [id number] ####[facility] [place] [address] Glucose [Mass/Vol] 183 mg/dL High 70-100 [facility] Comment on above: Performed By: #### L [id number] ####[facility] [place] [address] Potassium [Moles/Vol] 3.7 mmol/L Normal 3.5-5.1 [facility] Comment on above: Performed By: #### L [id number] ####[facility] [place] [address] Sodium [Moles/Vol] 137 mmol/L Normal 136-145 [facility] Comment on above: Performed By: #### L [id number] ####[facility] ([facility])[address] [place] [address] Urea nitrogen [Mass/Vol] 17 mg/dL Normal 7-25 [facility] Comment on above: Performed By: #### L [id number] ####[facility] ([facility])[address] [place] [address] UREA NITROGEN/CREATININE (MASS RATIO) IN SER/PLAS 20.7 Normal [facility] Comment on above: Performed By: #### L [id number] ####[facility] [place] [address] CBC WITH AUTO DIFFERENTIALon 08-28-2024 Basophils (Bld) [#/Vol] 0.09 10*3/uL Normal 0.00-0.20 [facility] Comment on above: Performed By: #### L [id number] ####[facility] [place] [address] Basophils/100 WBC (Bld) 0.9 % Normal 0.0-1.0 [facility] Comment on above: Performed By: #### L [id number] ####[facility] [place] [address] Eosinophils (Bld) [#/Vol] 0.40 10*3/uL Normal 0.00-0.50 [facility] Comment on above: Performed By: #### L [id number] ####[facility] (BEAKER)[address] [place] [address] Eosinophils/100 WBC (Bld) 4.2 % Normal 0.0-6.0 [facility] Comment on above: Performed By: #### L [id number] ####[facility] (BEAKER)[address] [place] [address] Erythrocyte distribution width (RBC) [Ratio] 14.8 % Normal 11.5-15.0 [facility] Comment on above: Performed By: #### L [id number] ####[facility] (BEAKER)[address] [place] [address] ERYTHROCYTE MEAN CORPUSCULAR HEMOGLOBIN CONCENTRATION (G/DL) BY AUTOMATED 30.3 g/dL Low 32.0-35.0 [facility] Comment on above: Performed By: #### L [id number] ####[facility] (BEAKER)[address] [place] [address] Hematocrit (Bld) [Volume fraction] 50.9 % Normal 39.0-55.0 [facility] Comment on above: Performed By: #### L [id number] ####[facility] (BEAKER)[address] [place] [address] Hemoglobin (Bld) [Mass/Vol] 15.4 g/dL Normal 13.0-17.0 [facility] Comment on above: Performed By: #### L [id number] ####[facility] (BEAKER)[address] [place] [address] Immature granulocytes (Bld) [#/Vol] 0.06 10*3/uL Normal 0.00-0.20 [facility] Comment on above: Performed By: #### L [id number] ####[facility] (BEAKER)[address] [place] [address] Immature granulocytes/100 WBC (Bld) 0.6 % Normal 0.0-1.0 [facility] Comment on above: Performed By: #### L [id number] ####[facility] ([facility])[address] [place] [address] Lymphocytes (Bld) [#/Vol] 1.68 10*3/uL Normal 1.20-4.00 [facility] Comment on above: Performed By: #### L [id number] ####[facility] ([facility])[address] [place] [address] Lymphocytes/100 WBC (Bld) 17.6 % Low 20.0-45.0 [facility] Comment on above: Performed By: #### L [id number] ####[facility] ([facility])[address] [place] [address] MCH (RBC) [Entitic mass] 29.2 pg Normal 27.0-33.0 [facility] Comment on above: Performed By: #### L [id number] ####[facility] ([facility])[address] [place] [address] MCV (RBC) [Entitic vol] 96.6 fL Normal 82.0-98.0 [facility] Comment on above: Performed By: #### L [id number] ####[facility] ([facility])[address] [place] [address] Monocytes (Bld) [#/Vol] 0.99 10*3/uL Normal 0.10-1.00 [facility] Comment on above: Performed By: #### L [id number] ####[facility] ([facility])[address] [place] [address] Monocytes/100 WBC (Bld) 10.4 % Normal 5.0-12.0 [facility] Comment on above: Performed By: #### L [id number] ####[facility] ([facility])[address] [place] [address] Neutrophils (Bld) [#/Vol] 6.33 10*3/uL Normal 1.60-7.60 [facility] Comment on above: Performed By: #### L [id number] ####[facility] ([facility])[address] [place] [address] Neutrophils/100 WBC (Bld) 66.3 % Normal 40.0-72.0 [facility] Comment on above: Performed By: #### L [id number] ####[facility] ([facility])[address] [place] [address] NRBC (PER 100 WBCS) BY AUTOMATED COUNT 0.0 % Normal 0 [facility] Comment on above: Performed By: #### L [id number] ####[facility] ([facility])[address] [place] [address] PLATELETS (10*3/UL) IN BLOOD AUTOMATED COUNT 252 10*3/uL Normal 150-400 [facility] Comment on above: Performed By: #### L [id number] ####[facility] ([facility])[address] [place] [address] RBC (Bld) [#/Vol] 5.27 10*6/uL Normal 4.20-5.70 [facility] Comment on above: Performed By: #### L [id number] ####[facility] ([facility])[address] [place] [address] WBC (Bld) [#/Vol] 9.55 10*3/uL Normal 4.00-10.60 [facility] Comment on above: Performed By: #### L [id number] ####[facility] ([facility])[address] [place] [address] MAGNESIUMon 08-28-2024 Magnesium [Mass/Vol] 1.8 mg/dL Low 1.9-2.7 [facility] Comment on above: Performed By: #### L [id number] ####[facility] ([facility])[address] [id number] NURSNOTEon 08-28-2024 NURSNOTE Normal [facility] POCT GLUCOSE METER UNSOLICIT ED RESULTSon 08-28-2024 Glucose [Mass/Vol] 258 mg/dL High 70-105 [facility] Comment on above: Order Comment: Waive d Testing in the ED is performed under the ED CLIA certificate #[id number]. Result Comment: [email or web address] Performed By: #### L [id number] ####[facility] ([facility])[address] [place] [address] Glucose [Mass/Vol] 177 mg/dL High 70-105 [facility] Comment on above: Order Comment: Waive d Testing in the ED is performed under the ED CLIA certificate #[id number]. Result Comment: aall [id number] Performed By: #### L [id number] ####[facility] ([facility])[address] [place] [address] Glucose [Mass/Vol] 242 mg/dL High 70-105 [facility] Comment on above: Order Comment: Waive d Testing in the ED is performed under the ED CLIA certificate #[id number]. Result Comment: aall [id number] Performed By: #### L [id number] ####[facility] ([facility] [place] [address] Glucose [Mass/Vol] 200 mg/dL High 70-105 [facility] Comment on above: Order Comment: Waive d Testing in the ED is performed under the ED CLIA certificate #[id number]. Result Comment: aall [id number] Performed By: #### L [id number] ####[facility] ([facility])[address] [place] [address] 30on 08-27-2024 30 Normal [facility] BASIC METABOLIC PANELon -0 Anion gap [Moles/Vol] 6 mmol/L Low 7-20 [facility] Comment on above: Performed By: #### L [id number] ####[facility] ([facility])[address] [place] [address] Calcium [Mass/Vol] 9.8 mg/dL Normal 8.6-10.3 [facility] Comment on above: Performed By: #### L [id number] ####[facility] [place] [address] Chloride [Moles/Vol] 97 mmol/L Low 98-107 [facility] Comment on above: Performed By: #### L [id number] ####[facility] ([facility])[address] [place] [address] CO2 [Moles/Vol] 41 mmol/L Critically high 21-31 [facility] Comment on above: Performed By: #### L [id number] ####[facility] ([facility])[address] [place] [address] Creatinine [Mass/Vol] 0.81 mg/dL Normal 0.70-1.30 [facility] Comment on above: Performed By: #### L [id number] ####[facility] ([facility])[address] [place] [address] GLOMERULAR FILTRATION RATE ML/MIN/1.73 SQ M.PREDICTED 97.8 mL/min/1.73m*2 Normal >60.0 [facility] Comment on above: Result Comment: [facility]???s estimated glomerular filtration rate (eGFR) will no [...] By: #### L [id number] ####[facility] [place] [address] Glucose [Mass/Vol] 187 mg/dL High 70-100 [facility] Comment on above: Performed By: #### L [id number] ####[facility] [place] [address] Potassium [Moles/Vol] 3.5 mmol/L Normal 3.5-5.1 [facility] Comment on above: Performed By: #### L [id number] ####[facility] ([facility])[address] [place] [address] Sodium [Moles/Vol] 140 mmol/L Normal 136-145 [facility] Comment on above: Performed By: #### L [id number] ####[facility] ([facility])[address] [place] [address] Urea nitrogen [Mass/Vol] 16 mg/dL Normal 7-25 [facility] Comment on above: Performed By: #### L [id number] ####[facility] ([facility])[address] [place] [address] UREA NITROGEN/CREATININE (MASS RATIO) IN SER/PLAS 19.8 Normal [facility] Comment on above: Performed By: #### L [id number] ####[facility] ([facility])[address] [place] [address] CBC WITH AUTO DIFFERENTIALon 08-27-2024 Basophils (Bld) [#/Vol] 0.06 10*3/uL Normal 0.00-0.20 [facility] Comment on above: Performed By: #### L [id number] ####[facility] ([facility])[address] [place] [address] Basophils/100 WBC (Bld) 0.7 % Normal 0.0-1.0 [facility] Comment on above: Performed By: #### L [id number] ####[facility] [place] [address] Eosinophils (Bld) [#/Vol] 0.38 10*3/uL Normal 0.00-0.50 [facility] Comment on above: Performed By: #### L [id number] ####[facility] [place] [address] Eosinophils/100 WBC (Bld) 4.7 % Normal 0.0-6.0 [facility] Comment on above: Performed By: #### L [id number] ####[facility] ([facility])[address] [place] [address] Erythrocyte distribution width (RBC) [Ratio] 14.6 % Normal 11.5-15.0 [facility] Comment on above: Performed By: #### L [id number] ####[facility] [place] [address] ERYTHROCYTE MEAN CORPUSCULAR HEMOGLOBIN CONCENTRATION (G/DL) BY AUTOMATED 29.7 g/dL Low 32.0-35.0 [facility] Comment on above: Performed By: #### L [id number] ####[facility] ([facility])[address] [place] [address] Hematocrit (Bld) [Volume fraction] 49.5 % Normal 39.0-55.0 [facility] Comment on above: Performed By: #### L [id number] ####[facility] ([facility])[address] [place] [address] Hemoglobin (Bld) [Mass/Vol] 14.7 g/dL Normal 13.0-17.0 [facility] Comment on above: Performed By: #### L [id number] ####[facility] ([facility])[address] [place] [address] Immature granulocytes (Bld) [#/Vol] 0.04 10*3/uL Normal 0.00-0.20 [facility] Comment on above: Performed By: #### L [id number] ####[facility] [place] [address] Immature granulocytes/100 WBC (Bld) 0.5 % Normal 0.0-1.0 [facility] Comment on above: Performed By: #### L [id number] ####[facility] ([facility])[address] [place] [address] Lymphocytes (Bld) [#/Vol] 1.42 10*3/uL Normal 1.20-4.00 [facility] Comment on above: Performed By: #### L [id number] ####[facility] [place] [address] Lymphocytes/100 WBC (Bld) 17.7 % Low 20.0-45.0 [facility] Comment on above: Performed By: #### L [id number] ####[facility] [place] [address] MCH (RBC) [Entitic mass] 28.9 pg Normal 27.0-33.0 [facility] Comment on above: Performed By: #### L [id number] ####[facility] [place] [address] MCV (RBC) [Entitic vol] 97.4 fL Normal 82.0-98.0 [facility] Comment on above: Performed By: #### L [id number] ####[facility] ([facility])[address] [place] [address] Monocytes (Bld) [#/Vol] 0.92 10*3/uL Normal 0.10-1.00 [facility] Comment on above: Performed By: #### L [id number] ####[facility] ([facility])[address] [place] [address] Monocytes/100 WBC (Bld) 11.5 % Normal 5.0-12.0 [facility] Comment on above: Performed By: #### L [id number] ####[facility] ([facility])[address] [place] [address] Neutrophils (Bld) [#/Vol] 5.19 10*3/uL Normal 1.60-7.60 [facility] Comment on above: Performed By: #### L [id number] ####[facility] [place] [address] Neutrophils/100 WBC (Bld) 64.9 % Normal 40.0-72.0 [facility] Comment on above: Performed By: #### L [id number] ####[facility] [place] [address] NRBC (PER 100 WBCS) BY AUTOMATED COUNT 0.0 % Normal 0 [facility] Comment on above: Performed By: #### L [id number] ####[facility] ([facility])[address] [place] [address] PLATELETS (10*3/UL) IN BLOOD AUTOMATED COUNT 209 10*3/uL Normal 150-400 [facility] Comment on above: Performed By: #### L [id number] ####[facility] ([facility])[address] [place] [address] RBC (Bld) [#/Vol] 5.08 10*6/uL Normal 4.20-5.70 [facility] Comment on above: Performed By: #### L [id number] ####[facility] ([facility])[address] [place] [address] WBC (Bld) [#/Vol] 8.01 10*3/uL Normal 4.00-10.60 [facility] Comment on above: Performed By: #### L [id number] ####[facility] ([facility])[address] [place] [address] MAGNESIUMon 08-27-2024 Magnesium [Mass/Vol] 1.6 mg/dL Low 1.9-2.7 [facility] Comment on above: Performed By: #### L [id number] ####[facility] ([facility])[address] [place] [address] POCT GLUCOSE METER UNSOLICIT ED RESULTSon 08-27-2024 Glucose [Mass/Vol] 144 mg/dL High 70-105 [facility] Comment on above: Order Comment: Waive d Testing in the ED is performed under the ED CLIA certificate #[id number]. Result Comment: [email or web address] kol Performed By: #### L [id number] ####[facility] ([facility])[address] [place] [address] Glucose [Mass/Vol] 204 mg/dL High 70-105 [facility] Comment on above: Order Comment: Waive d Testing in the ED is performed under the ED CLIA certificate #[id number]. Result Comment: [email or web address] [email or web address] Performed By: #### L [id number] ####[facility] ([facility])[address] [place] [address] Glucose [Mass/Vol] 230 mg/dL High 70-105 [facility] Comment on above: Order Comment: Waive d Testing in the ED is performed under the ED CLIA certificate #[id number]. Result Comment: [email or web address] Performed By: #### L [id number] ####[facility] [place] [address] Glucose [Mass/Vol] 174 mg/dL High 70-105 [facility] Comment on above: Order Comment: Waive d Testing in the ED is performed under the ED CLIA certificate #[id number]. Result Comment: [email or web address] [email or web address] Performed By: #### L [id number] ####[facility] ([facility])[address] [place] [address] BASIC METABOLIC PANELon 02-0 Anion gap [Moles/Vol] 9 mmol/L Normal 7-20 [facility] Comment on above: Performed By: #### L [id number] ####[facility] ([facility])[address] [place] [address] Calcium [Mass/Vol] 9.4 mg/dL Normal 8.6-10.3 [facility] Comment on above: Performed By: #### L [id number] ####[facility] [place] [address] Chloride [Moles/Vol] 100 mmol/L Normal 98-107 [facility] Comment on above: Performed By: #### L [id number] ####[facility] ([facility])[address] [place] [address] CO2 [Moles/Vol] 36 mmol/L High 21-[address] [facility] Comment on above: Performed By: #### L [id number] ####[facility] ([facility]ER)[address] [place] [address] Creatinine [Mass/Vol] 0.78 mg/dL Normal 0.70-1.30 [facility] Comment on above: Performed By: #### L [id number] ####[facility] ([facility])[address] [place] [address] GLOMERULAR FILTRATION RATE ML/MIN/1.73 SQ M.PREDICTED 99.0 mL/min/1.73m*2 Normal >60.0 [facility] Comment on above: Result Comment: [facility]???s estimated glomerular filtration rate (eGFR) will no [...] By: #### L [id number] ####[facility] ([facility])[address] [place] [address] Glucose [Mass/Vol] 156 mg/dL High 70-100 [facility] Comment on above: Performed By: #### L [id number] ####[facility] ([facility])[address] [place] [address] Potassium [Moles/Vol] 3.5 mmol/L Normal 3.5-5.1 [facility] Comment on above: Performed By: #### L [id number] ####[facility] ([facility])[address] [place] [address] Sodium [Moles/Vol] 141 mmol/L Normal 136-145 [facility] Comment on above: Performed By: #### L [id number] ####[facility] ([facility])[address] [place] [address] Urea nitrogen [Mass/Vol] 17 mg/dL Normal 7-25 [facility] Comment on above: Performed By: #### L [id number] ####[facility] [place] [address] UREA NITROGEN/CREATININE (MASS RATIO) IN SER/PLAS 21.8 Normal [facility] Comment on above: Performed By: #### L [id number] ####[facility] [place] [address] CBC WITH AUTO DIFFERENTIALon 08-26-2024 Basophils (Bld) [#/Vol] 0.06 10*3/uL Normal 0.00-0.20 [facility] Comment on above: Performed By: #### L [id number] ####[facility] ([facility])[address] [place] [address] Basophils/100 WBC (Bld) 0.8 % Normal 0.0-1.0 [facility] Comment on above: Performed By: #### L [id number] ####[facility] ([facility])[address] [place] [address] Eosinophils (Bld) [#/Vol] 0.39 10*3/uL Normal 0.00-0.50 [facility] Comment on above: Performed By: #### L [id number] ####[facility] ([facility])[address] [place] [address] Eosinophils/100 WBC (Bld) 5.4 % Normal 0.0-6.0 [facility] Comment on above: Performed By: #### L [id number] ####[facility] ([facility])[address] [place] [address] Erythrocyte distribution width (RBC) [Ratio] 14.7 % Normal 11.5-15.0 [facility] Comment on above: Performed By: #### L [id number] ####[facility] [place] [address] ERYTHROCYTE MEAN CORPUSCULAR HEMOGLOBIN CONCENTRATION (G/DL) BY AUTOMATED 30.4 g/dL Low 32.0-35.0 [facility] Comment on above: Performed By: #### L [id number] ####[facility] (BEAKER)[address] [place] [address] Hematocrit (Bld) [Volume fraction] 49.0 % Normal 39.0-55.0 [facility] Comment on above: Performed By: #### L [id number] ####[facility] (BEAKER)[address] [place] [address] Hemoglobin (Bld) [Mass/Vol] 14.9 g/dL Normal 13.0-17.0 [facility] Comment on above: Performed By: #### L [id number] ####[facility] ([facility]ER)[address] [place] [address] Immature granulocytes (Bld) [#/Vol] 0.03 10*3/uL Normal 0.00-0.20 [facility] Comment on above: Performed By: #### L [id number] ####[facility] (BE[facility]ER)[address] [place] [address] Immature granulocytes/100 WBC (Bld) 0.4 % Normal 0.0-1.0 [facility] Comment on above: Performed By: #### L [id number] ####[facility] (BE[facility]ER)[address] [place] [address] Lymphocytes (Bld) [#/Vol] 1.21 10*3/uL Normal 1.20-4.00 [facility] Comment on above: Performed By: #### L [id number] ####[facility] ([facility]ER)[address] [place] [address] Lymphocytes/100 WBC (Bld) 16.7 % Low 20.0-45.0 [facility] Comment on above: Performed By: #### L [id number] ####[facility] ([facility]ER)[address] [place] [address] MCH (RBC) [Entitic mass] 29.2 pg Normal 27.0-33.0 [facility] Comment on above: Performed By: #### L [id number] ####[facility] ([facility]ER)[address] [place] [address] MCV (RBC) [Entitic vol] 96.1 fL Normal 82.0-98.0 [facility] Comment on above: Performed By: #### L [id number] ####[facility] ([facility]ER)[address] [place] [address] Monocytes (Bld) [#/Vol] 0.86 10*3/uL Normal 0.10-1.00 [facility] Comment on above: Performed By: #### L [id number] ####[facility] (BEAKER)[address] [place] [address] Monocytes/100 WBC (Bld) 11.9 % Normal 5.0-12.0 [facility] Comment on above: Performed By: #### L [id number] ####[facility] (BEAKER)[address] [place] [address] Neutrophils (Bld) [#/Vol] 4.70 10*3/uL Normal 1.60-7.60 [facility] Comment on above: Performed By: #### L [id number] ####[facility] [place] [address] Neutrophils/100 WBC (Bld) 64.8 % Normal 40.0-72.0 [facility] Comment on above: Performed By: #### L [id number] ####[facility] (BEAKER)[address] [place] [address] NRBC (PER 100 WBCS) BY AUTOMATED COUNT 0.0 % Normal 0 [facility] Comment on above: Performed By: #### L [id number] ####[facility] (BEAKER)[address] [place] [address] PLATELETS (10*3/UL) IN BLOOD AUTOMATED COUNT 208 10*3/uL Normal 150-400 [facility] Comment on above: Performed By: #### L [id number] ####[facility] (BEAKER)[address] [place] [address] RBC (Bld) [#/Vol] 5.10 10*6/uL Normal 4.20-5.70 [facility] Comment on above: Performed By: #### L [id number] ####[facility] ([facility])[address] [place] [address] WBC (Bld) [#/Vol] 7.25 10*3/uL Normal 4.00-10.60 [facility] Comment on above: Performed By: #### L [id number] ####[facility] ([facility])[address] [place] [address] MAGNESIUMon 08-26-2024 Magnesium [Mass/Vol] 1.8 mg/dL Low 1.9-2.7 [facility] Comment on above: Performed By: #### L [id number] ####[facility] ([facility])[address] [place] [address] POCT GLUCOSE METER UNSOLICIT ED RESULTSon 08-26-2024 Glucose [Mass/Vol] 246 mg/dL High 70-105 [facility] Comment on above: Order Comment: Waive d Testing in the ED is performed under the ED CLIA certificate #[id number]. Result Comment: [email or web address] Performed By: #### L [id number] ####[facility] ([facility])[address] [place] [address] Glucose [Mass/Vol] 204 mg/dL High 70-105 [facility] Comment on above: Order Comment: Waive d Testing in the ED is performed under the ED CLIA certificate #[id number]. Result Comment: [email or web address] Performed By: #### L [id number] ####[facility] ([facility])[address] [place] [address] Glucose [Mass/Vol] 219 mg/dL High 70-105 [facility] Comment on above: Order Comment: Waive d Testing in the ED is performed under the ED CLIA certificate #[id number]. Result Comment: [email or web address] Performed By: #### L [id number] ####[facility] ([facility])[address] [place] [address] Glucose [Mass/Vol] 163 mg/dL High 70-105 [facility] Comment on above: Order Comment: Waive d Testing in the ED is performed under the ED CLIA certificate #[id number]. Result Comment: [email or web address] Performed By: #### L [id number] ####[facility] [place] [address] 30on 08-25-2024 30 Normal [facility] BASIC METABOLIC PANELon Anion gap [Moles/Vol] 10 mmol/L Normal 7-20 [facility] Comment on above: Performed By: #### L [id number] ####[facility] ([facility])[address] [place] [address] Calcium [Mass/Vol] 9.5 mg/dL Normal 8.6-10.3 [facility] Comment on above: Performed By: #### L [id number] ####[facility] ([facility])[address] [place] [address] Chloride [Moles/Vol] 97 mmol/L Low 98-107 [facility] Comment on above: Performed By: #### L [id number] ####[facility] ([facility])[address] [place] [address] CO2 [Moles/Vol] 34 mmol/L High 21-[address] [facility] Comment on above: Performed By: #### L [id number] ####[facility] [place] [address] Creatinine [Mass/Vol] 0.87 mg/dL Normal 0.70-1.30 [facility] Comment on above: Performed By: #### L [id number] ####[facility] ([facility])[address] [place] [address] GLOMERULAR FILTRATION RATE ML/MIN/1.73 SQ M.PREDICTED 95.8 mL/min/1.73m*2 Normal >60.0 [facility] Comment on above: Result Comment: [facility]???s estimated glomerular filtration rate (eGFR) will no [...] By: #### L [id number] ####[facility] ([facility])[address] [place] [address] Glucose [Mass/Vol] 178 mg/dL High 70-100 [facility] Comment on above: Performed By: #### L [id number] ####[facility] ([facility])[address] [place] [address] Potassium [Moles/Vol] 3.5 mmol/L Normal 3.5-5.1 [facility] Comment on above: Performed By: #### L [id number] ####[facility] ([facility])[address] [place] [address] Sodium [Moles/Vol] 137 mmol/L Normal 136-145 [facility] Comment on above: Performed By: #### L [id number] ####[facility] ([facility])[address] [place] [address] Urea nitrogen [Mass/Vol] 20 mg/dL Normal 7-25 [facility] Comment on above: Performed By: #### L [id number] ####[facility] ([facility])[address] [place] [address] UREA NITROGEN/CREATININE (MASS RATIO) IN SER/PLAS 23.0 Normal [facility] Comment on above: Performed By: #### L [id number] ####[facility] ([facility])[address] [place] [address] CBC WITH AUTO DIFFERENTIALon 08-25-2024 Basophils (Bld) [#/Vol] 0.04 10*3/uL Normal 0.00-0.20 [facility] Comment on above: Performed By: #### L [id number] ####[facility] (BEAKER)[address] [place] [address] Basophils/100 WBC (Bld) 0.6 % Normal 0.0-1.0 [facility] Comment on above: Performed By: #### L [id number] ####[facility] (BEAKER)[address] [place] [address] Eosinophils (Bld) [#/Vol] 0.22 10*3/uL Normal 0.00-0.50 [facility] Comment on above: Performed By: #### L [id number] ####[facility] (BEAKER)[address] [place] [address] Eosinophils/100 WBC (Bld) 3.1 % Normal 0.0-6.0 [facility] Comment on above: Performed By: #### L [id number] ####[facility] (BEAKER)[address] [place] [address] Erythrocyte distribution width (RBC) [Ratio] 14.6 % Normal 11.5-15.0 [facility] Comment on above: Performed By: #### L [id number] ####[facility] (BEAKER)[address] [place] [address] ERYTHROCYTE MEAN CORPUSCULAR HEMOGLOBIN CONCENTRATION (G/DL) BY AUTOMATED 30.6 g/dL Low 32.0-35.0 [facility] Comment on above: Performed By: #### L [id number] ####[facility] (BEAKER)[address] [place] [address] Hematocrit (Bld) [Volume fraction] 49.4 % Normal 39.0-55.0 [facility] Comment on above: Performed By: #### L [id number] ####[facility] (BEAKER)[address] [place] [address] Hemoglobin (Bld) [Mass/Vol] 15.1 g/dL Normal 13.0-17.0 [facility] Comment on above: Performed By: #### L [id number] ####[facility] (BEAKER)[address] [place] [address] Immature granulocytes (Bld) [#/Vol] 0.04 10*3/uL Normal 0.00-0.20 [facility] Comment on above: Performed By: #### L [id number] ####[facility] (BEAKER)[address] [place] [address] Immature granulocytes/100 WBC (Bld) 0.6 % Normal 0.0-1.0 [facility] Comment on above: Performed By: #### L [id number] ####[facility] (BEAKER)[address] [place] [address] Lymphocytes (Bld) [#/Vol] 1.08 10*3/uL Low 1.20-4.00 [facility] Comment on above: Performed By: #### L [id number] ####[facility] (BEAKER)[address] [place] [address] Lymphocytes/100 WBC (Bld) 15.1 % Low 20.0-45.0 [facility] Comment on above: Performed By: #### L [id number] ####[facility] (BEAKER)[address] [place] [address] MCH (RBC) [Entitic mass] 28.9 pg Normal 27.0-33.0 [facility] Comment on above: Performed By: #### L [id number] ####[facility] (BEAKER)[address] [place] [address] MCV (RBC) [Entitic vol] 94.6 fL Normal 82.0-98.0 [facility] Comment on above: Performed By: #### L [id number] ####[facility] (BEAKER)[address] [place] [address] Monocytes (Bld) [#/Vol] 0.94 10*3/uL Normal 0.10-1.00 [facility] Comment on above: Performed By: #### L [id number] ####[facility] (BEAKER)[address] [place] [address] Monocytes/100 WBC (Bld) 13.1 % High 5.0-12.0 [facility] Comment on above: Performed By: #### L [id number] ####[facility] [place] [address] Neutrophils (Bld) [#/Vol] 4.85 10*3/uL Normal 1.60-7.60 [facility] Comment on above: Performed By: #### L [id number] ####[facility] ([facility])[address] [place] [address] Neutrophils/100 WBC (Bld) 67.5 % Normal 40.0-72.0 [facility] Comment on above: Performed By: #### L [id number] ####[facility] ([facility])[address] [place] [address] NRBC (PER 100 WBCS) BY AUTOMATED COUNT 0.0 % Normal 0 [facility] Comment on above: Performed By: #### L [id number] ####[facility] ([facility])[address] [place] [address] PLATELETS (10*3/UL) IN BLOOD AUTOMATED COUNT 200 10*3/uL Normal 150-400 [facility] Comment on above: Performed By: #### L [id number] ####[facility] ([facility])[address] [place] [address] RBC (Bld) [#/Vol] 5.22 10*6/uL Normal 4.20-5.70 [facility] Comment on above: Performed By: #### L [id number] ####[facility] (BEAKER)[address] [place], [place] [address] WBC (Bld) [#/Vol] 7.17 10*3/uL Normal 4.00-10.60 [facility] Comment on above: Performed By: #### L [id number] ####[facility] (BEAKER)[address] [place] [address] MAGNESIUMon 02-05-2025 Magnesium [Mass/Vol] 1.6 mg/dL Low 1.9-2.7 [facility] Comment on above: Performed By: #### L [id number] ####[facility] ([facility])[address] [place] [address] POCT GLUCOSE METER UNSOLICIT ED RESULTSon 08-25-2024 Glucose [Mass/Vol] 154 mg/dL High 70-105 [facility] Comment on above: Order Comment: Waive d Testing in the ED is performed under the ED CLIA certificate #[id number]. Result Comment: [email or web address] Performed By: #### L [id number] ####[facility] ([facility])[address] [place] [address] Glucose [Mass/Vol] 196 mg/dL High 70-105 [facility] Comment on above: Order Comment: Waive d Testing in the ED is performed under the ED CLIA certificate #[id number]. Result Comment: [email or web address] [email or web address] Performed By: #### L [id number] ####[facility] ([facility])[address] [place] [address] Glucose [Mass/Vol] 313 mg/dL High 70-105 [facility] Comment on above: Order Comment: Waive d Testing in the ED is performed under the ED CLIA certificate #[id number]. Result Comment: [email or web address] [email or web address] Performed By: #### L [id number] ####[facility] ([facility])[address] [place] [address] Glucose [Mass/Vol] 164 mg/dL High 70-105 [facility] Comment on above: Order Comment: Waive d Testing in the ED is performed under the ED CLIA certificate #[id number]. Result Comment: [email or web address] [email or web address] Performed By: #### L [id number] ####[facility] ([facility])[address] [place] [address] 30on 08-24-2024 30 Normal [facility] ANTI-XA (HEPARIN LEVEL)on HEPARIN UNFRACTIONATED (U/ML) IN PPP BY CHROMOGENIC METHOD 0.21 IU/mL Low 0.3-0.7 [facility] Comment on above: Result Comment: Tatyana roxaban and Apixaban will interfere with the anti Xa assay used to monitor UFH and LMWH. Performed By: #### L [id number] ####[facility] ([facility])[address] [place] [address] B-TYPE NATRIURETIC PEPTIDEon 08-24-2024 Natriuretic peptide B (Bld) [Mass/Vol] 143 pg/mL High 0-100 [facility] Comment on above: Performed By: #### L [id number] ####[facility] ([facility])[address] [place] [address] BASIC METABOLIC PANELon Anion gap [Moles/Vol] 11 mmol/L Normal 7-20 [facility] Comment on above: Performed By: #### L [id number] ####[facility] ([facility])[address] [place] [address] Calcium [Mass/Vol] 9.7 mg/dL Normal 8.6-10.3 [facility] Comment on above: Performed By: #### L [id number] ####[facility] ([facility])[address] [place] [address] Chloride [Moles/Vol] 98 mmol/L Normal 98-107 [facility] Comment on above: Performed By: #### L [id number] ####[facility] [place] [address] CO2 [Moles/Vol] 33 mmol/L High 21-[address] [facility] Comment on above: Performed By: #### L [id number] ####[facility] [place] [address] Creatinine [Mass/Vol] 0.93 mg/dL Normal 0.70-1.30 [facility] Comment on above: Performed By: #### L [id number] ####[facility] [place] [address] GLOMERULAR FILTRATION RATE ML/MIN/1.73 SQ M.PREDICTED 91.1 mL/min/1.73m*2 Normal >60.0 [facility] Comment on above: Result Comment: [facility]???s estimated glomerular filtration rate (eGFR) will no [...] By: #### L [id number] ####[facility] ([facility])[address] [place] [address] Glucose [Mass/Vol] 166 mg/dL High 70-100 [facility] Comment on above: Performed By: #### L [id number] ####[facility] ([facility])[address] [place] [address] Potassium [Moles/Vol] 3.8 mmol/L Normal 3.5-5.1 [facility] Comment on above: Performed By: #### L [id number] ####[facility] ([facility])[address] [place] [address] Sodium [Moles/Vol] 138 mmol/L Normal 136-145 [facility] Comment on above: Performed By: #### L [id number] ####[facility] (BEAKER)[address] [place] [address] Urea nitrogen [Mass/Vol] 23 mg/dL Normal 7-25 [facility] Comment on above: Performed By: #### L [id number] ####[facility] ([facility])[address] [place] [address] UREA NITROGEN/CREATININE (MASS RATIO) IN SER/PLAS 24.7 Normal [facility] Comment on above: Performed By: #### L [id number] ####[facility] [place] [address] Anion gap [Moles/Vol] 10 mmol/L Normal 7-20 [facility] Comment on above: Performed By: #### L [id number] ####[facility] (BEAKER)[address] [place] [address] Calcium [Mass/Vol] 9.4 mg/dL Normal 8.6-10.3 [facility] Comment on above: Performed By: #### L [id number] ####[facility] (BEAKER)[address] [place] [address] Chloride [Moles/Vol] 98 mmol/L Normal 98-107 [facility] Comment on above: Performed By: #### L [id number] ####[facility] (BEAKER)[address] [place] [address] CO2 [Moles/Vol] 33 mmol/L High 21-[address] [facility] Comment on above: Performed By: #### L [id number] ####[facility] [place] [address] Creatinine [Mass/Vol] 0.88 mg/dL Normal 0.70-1.30 [facility] Comment on above: Performed By: #### L [id number] ####[facility] [place] [address] GLOMERULAR FILTRATION RATE ML/MIN/1.73 SQ M.PREDICTED 95.4 mL/min/1.73m*2 Normal >60.0 [facility] Comment on above: Result Comment: [facility]???s estimated glomerular filtration rate (eGFR) will no [...] By: #### L [id number] ####[facility] ([facility])[address] [place] [address] Glucose [Mass/Vol] 132 mg/dL High 70-100 [facility] Comment on above: Performed By: #### L [id number] ####[facility] ([facility])[address] [place] [address] Potassium [Moles/Vol] 2.9 mmol/L Invalid Interpretation Code 3.5-5.1 [facility] Comment on above: Performed By: #### L [id number] ####[facility] ([facility])[address] [place] [address] Sodium [Moles/Vol] 138 mmol/L Normal 136-145 [facility] Comment on above: Performed By: #### L [id number] ####[facility] ([facility])[address] [place] [address] Urea nitrogen [Mass/Vol] 24 mg/dL Normal 7-25 [facility] Comment on above: Performed By: #### L [id number] ####[facility] ([facility])[address] [place] [address] UREA NITROGEN/CREATININE (MASS RATIO) IN SER/PLAS 27.3 Normal [facility] Comment on above: Performed By: #### L [id number] ####[facility] ([facility])[address] [place] [address] CBC WITH AUTO DIFFERENTIALon 08-24-2024 Basophils (Bld) [#/Vol] 0.06 10*3/uL Normal 0.00-0.20 [facility] Comment on above: Performed By: #### L [id number] ####[facility] ([facility])[address] [place] [address] Basophils/100 WBC (Bld) 0.8 % Normal 0.0-1.0 [facility] Comment on above: Performed By: #### L [id number] ####[facility] ([facility])[address] [place] [address] Eosinophils (Bld) [#/Vol] 0.46 10*3/uL Normal 0.00-0.50 [facility] Comment on above: Performed By: #### L [id number] ####[facility] (BEAKER)[address] [place] [address] Eosinophils/100 WBC (Bld) 5.9 % Normal 0.0-6.0 [facility] Comment on above: Performed By: #### L [id number] ####[facility] (BEAKER)[address] [place] [address] Erythrocyte distribution width (RBC) [Ratio] 14.7 % Normal 11.5-15.0 [facility] Comment on above: Performed By: #### L [id number] ####[facility] (BEAKER)[address] [place] [address] ERYTHROCYTE MEAN CORPUSCULAR HEMOGLOBIN CONCENTRATION (G/DL) BY AUTOMATED 31.3 g/dL Low 32.0-35.0 [facility] Comment on above: Performed By: #### L [id number] ####[facility] (BEAKER)[address] [place] [address] Hematocrit (Bld) [Volume fraction] 50.8 % Normal 39.0-55.0 [facility] Comment on above: Performed By: #### L [id number] ####[facility] (BEAKER)[address] [place] [address] Hemoglobin (Bld) [Mass/Vol] 15.9 g/dL Normal 13.0-17.0 [facility] Comment on above: Performed By: #### L [id number] ####[facility] (BEAKER)[address] [place] [address] Immature granulocytes (Bld) [#/Vol] 0.04 10*3/uL Normal 0.00-0.20 [facility] Comment on above: Performed By: #### L [id number] ####[facility] (BEAKER)[address] [place] [address] Immature granulocytes/100 WBC (Bld) 0.5 % Normal 0.0-1.0 [facility] Comment on above: Performed By: #### L [id number] ####[facility] ([facility])[address] [place] [address] Lymphocytes (Bld) [#/Vol] 1.23 10*3/uL Normal 1.20-4.00 [facility] Comment on above: Performed By: #### L [id number] ####[facility] ([facility])[address] [place] [address] Lymphocytes/100 WBC (Bld) 15.8 % Low 20.0-45.0 [facility] Comment on above: Performed By: #### L [id number] ####[facility] ([facility])[address] [place] [address] MCH (RBC) [Entitic mass] 29.1 pg Normal 27.0-33.0 [facility] Comment on above: Performed By: #### L [id number] ####[facility] ([facility])[address] [place] [address] MCV (RBC) [Entitic vol] 92.9 fL Normal 82.0-98.0 [facility] Comment on above: Performed By: #### L [id number] ####[facility] [place] [address] Monocytes (Bld) [#/Vol] 0.96 10*3/uL Normal 0.10-1.00 [facility] Comment on above: Performed By: #### L [id number] ####[facility] [place] [address] Monocytes/100 WBC (Bld) 12.4 % High 5.0-12.0 [facility] Comment on above: Performed By: #### L [id number] ####[facility] (BEAKER)[address] [place] [address] Neutrophils (Bld) [#/Vol] 5.02 10*3/uL Normal 1.60-7.60 [facility] Comment on above: Performed By: #### L [id number] ####[facility] [place] [address] Neutrophils/100 WBC (Bld) 64.6 % Normal 40.0-72.0 [facility] Comment on above: Performed By: #### L [id number] ####[facility] ([facility])[address] [place] [address] NRBC (PER 100 WBCS) BY AUTOMATED COUNT 0.0 % Normal 0 [facility] Comment on above: Performed By: #### L [id number] ####[facility] ([facility])[address] [place] [address] PLATELETS (10*3/UL) IN BLOOD AUTOMATED COUNT 194 10*3/uL Normal 150-400 [facility] Comment on above: Performed By: #### L [id number] ####[facility] ([facility])[address] [place] [address] RBC (Bld) [#/Vol] 5.47 10*6/uL Normal 4.20-5.70 [facility] Comment on above: Performed By: #### L [id number] ####[facility] ([facility])[address] [place] [address] WBC (Bld) [#/Vol] 7.77 10*3/uL Normal 4.00-10.60 [facility] Comment on above: Performed By: #### L [id number] ####[facility] ([facility])[address] [place] [address] CONSULTon 08-24-2024 CONSULT Normal [facility] CT HEAD WO IV CONTRASTon CT HEAD WO IV CONTRAST Invalid Interpretation Code [facility] CTA CHEST W IV CONTRASTon CTA CHEST W IV CONTRAST Normal [facility] MAGNESIUMon 08-24-2024 Magnesium [Mass/Vol] 1.7 mg/dL Low 1.9-2.7 [facility] Comment on above: Performed By: #### L [id number] ####[facility] ([facility])[address] [place] [address] Magnesium [Mass/Vol] 1.4 mg/dL Low 1.9-2.7 [facility] Comment on above: Performed By: #### L [id number] ####[facility] ([facility])[address] [place] [address] NURSNOTEon 08-24-2024 NURSNOTE Normal [facility] NURSNOTE Normal [facility] PHOSPHORUSon 08-24-2024 Magnesium [Mass/Vol] 3.4 mg/dL Normal 2.5-5.0 [facility] Comment on above: Performed By: #### L [id number] ####[facility] ([facility])[address] [place] [address] POCT GLUCOSE METER UNSOLICIT ED RESULTSon 08-24-2024 Glucose [Mass/Vol] 182 mg/dL High 70-105 [facility] Comment on above: Order Comment: Waive d Testing in the ED is performed under the ED CLIA certificate #[id number]. Result Comment: droc kol Performed By: #### L [id number] ####[facility] ([facility])[address] [place] [address] Glucose [Mass/Vol] 166 mg/dL High 70-105 [facility] Comment on above: Order Comment: Waive d Testing in the ED is performed under the ED CLIA certificate #[id number]. Result Comment: sbel [email or web address] Performed By: #### L [id number] ####[facility] ([facility])[address] [place] [address] Glucose [Mass/Vol] 150 mg/dL High 70-105 [facility] Comment on above: Order Comment: Waive d Testing in the ED is performed under the ED CLIA certificate #[id number]. Result Comment: besc obe Performed By: #### L [id number] ####[facility] ([facility])[address] [place] [address] Glucose [Mass/Vol] 136 mg/dL High 70-105 [facility] Comment on above: Order Comment: Waive d Testing in the ED is performed under the ED CLIA certificate #[id number]. Result Comment: [email or web address] [id number] Value Noted Performed By: #### L [id number] ####[facility] ([facility])[address] [place] [address] BASIC METABOLIC PANELon 02-0 Anion gap [Moles/Vol] 10 mmol/L Normal 7-20 [facility] Comment on above: Performed By: #### L [id number] ####[facility] ([facility])[address] [place] [address] Calcium [Mass/Vol] 9.8 mg/dL Normal 8.6-10.3 [facility] Comment on above: Performed By: #### L [id number] ####[facility] ([facility])[address] [place] [address] Chloride [Moles/Vol] 99 mmol/L Normal 98-107 [facility] Comment on above: Performed By: #### L [id number] ####[facility] ([facility])[address] [place] [address] CO2 [Moles/Vol] 33 mmol/L High 21-[address] [facility] Comment on above: Performed By: #### L [id number] ####[facility] ([facility])[address] [place] [address] Creatinine [Mass/Vol] 0.94 mg/dL Normal 0.70-1.30 [facility] Comment on above: Performed By: #### L [id number] ####[facility] ([facility])[address] [place] [address] GLOMERULAR FILTRATION RATE ML/MIN/1.73 SQ M.PREDICTED 90.0 mL/min/1.73m*2 Normal >60.0 [facility] Comment on above: Result Comment: [facility]???s estimated glomerular filtration rate (eGFR) will no [...] By: #### L [id number] ####[facility] ([facility])[address] [place] [address] Glucose [Mass/Vol] 274 mg/dL High 70-100 [facility] Comment on above: Performed By: #### L [id number] ####[facility] ([facility])[address] [place] [address] Potassium [Moles/Vol] 3.8 mmol/L Normal 3.5-5.1 [facility] Comment on above: Performed By: #### L [id number] ####[facility] ([facility])[address] [address] Sodium [Moles/Vol] 138 mmol/L Normal 136-145 [facility] Comment on above: Performed By: #### L [id number] ####[facility] ([facility])[address] [place] [address] Urea nitrogen [Mass/Vol] 31 mg/dL High 7-25 [facility] Comment on above: Performed By: #### L [id number] ####[facility] ([facility])[address] [address] UREA NITROGEN/CREATININE (MASS RATIO) IN SER/PLAS 33.0 Normal [facility] Comment on above: Performed By: #### L [id number] ####[facility] ([facility])[address] [place] [address] CBC WITH AUTO DIFFERENTIALon 08-23-2024 Basophils (Bld) [#/Vol] 0.06 10*3/uL Normal 0.00-0.20 [facility] Comment on above: Performed By: #### L [id number] ####[facility] (BEAKER)[address] [place] [address] Basophils/100 WBC (Bld) 0.9 % Normal 0.0-1.0 [facility] Comment on above: Performed By: #### L [id number] ####[facility] (BEAK[facility])[address] [place] [address] Eosinophils (Bld) [#/Vol] 0.34 10*3/uL Normal 0.00-0.50 [facility] Comment on above: Performed By: #### L [id number] ####[facility] (BEAKER)[address] [place] [address] Eosinophils/100 WBC (Bld) 4.8 % Normal 0.0-6.0 [facility] Comment on above: Performed By: #### L [id number] ####[facility] (BEAKER)[address] [place] [address] Erythrocyte distribution width (RBC) [Ratio] 14.7 % Normal 11.5-15.0 [facility] Comment on above: Performed By: #### L [id number] ####[facility] (BEAKER)[address] [place] [address] ERYTHROCYTE MEAN CORPUSCULAR HEMOGLOBIN CONCENTRATION (G/DL) BY AUTOMATED 31.8 g/dL Low 32.0-35.0 [facility] Comment on above: Performed By: #### L [id number] ####[facility] (BE[facility]ER)[address] [place] [address] Hematocrit (Bld) [Volume fraction] 52.5 % Normal 39.0-55.0 [facility] Comment on above: Performed By: #### L [id number] ####[facility] (BEAKER)[address] [place] [address] Hemoglobin (Bld) [Mass/Vol] 16.7 g/dL Normal 13.0-17.0 [facility] Comment on above: Performed By: #### L [id number] ####[facility] (BEAKER)[address] [facility] [place] [address] Immature granulocytes (Bld) [#/Vol] 0.05 10*3/uL Normal 0.00-0.20 [facility] Comment on above: Performed By: #### L [id number] ####[facility] (BEAKER)[address] [place] [address] Immature granulocytes/100 WBC (Bld) 0.7 % Normal 0.0-1.0 [facility] Comment on above: Performed By: #### L [id number] ####[facility] (BEAKER)[address] [place] [address] Lymphocytes (Bld) [#/Vol] 1.15 10*3/uL Low 1.20-4.00 [facility] Comment on above: Performed By: #### L [id number] ####[facility] (BEAKER)[address] [place] [address] Lymphocytes/100 WBC (Bld) 16.4 % Low 20.0-45.0 [facility] Comment on above: Performed By: #### L [id number] ####[facility] (BEAKER)[address] [place] [address] MCH (RBC) [Entitic mass] 29.0 pg Normal 27.0-33.0 [facility] Comment on above: Performed By: #### L [id number] ####[facility] (BEAKER)[address] [place] [address] MCV (RBC) [Entitic vol] 91.1 fL Normal 82.0-98.0 [facility] Comment on above: Performed By: #### L [id number] ####[facility] (BEAKER)[address] [facility] [place] [address] Monocytes (Bld) [#/Vol] 0.85 10*3/uL Normal 0.10-1.00 [facility] Comment on above: Performed By: #### L [id number] ####[facility] (BEAKER)[address] [facility] [place] [address] Monocytes/100 WBC (Bld) 12.1 % High 5.0-12.0 [facility] Comment on above: Performed By: #### L [id number] ####[facility] ([facility])[address] [place] [address] Neutrophils (Bld) [#/Vol] 4.58 10*3/uL Normal 1.60-7.60 [facility] Comment on above: Performed By: #### L [id number] ####[facility] ([facility])[address] [place] [address] Neutrophils/100 WBC (Bld) 65.1 % Normal 40.0-72.0 [facility] Comment on above: Performed By: #### L [id number] ####[facility] ([facility])[address] [place] [address] NRBC (PER 100 WBCS) BY AUTOMATED COUNT 0.0 % Normal 0 [facility] Comment on above: Performed By: #### L [id number] ####[facility] ([facility])[address] [place] [address] PLATELETS (10*3/UL) IN BLOOD AUTOMATED COUNT 190 10*3/uL Normal 150-400 [facility] Comment on above: Performed By: #### L [id number] ####[facility] ([facility])[address] [place] [address] RBC (Bld) [#/Vol] 5.76 10*6/uL High 4.20-5.70 [facility] Comment on above: Performed By: #### L [id number] ####[facility] ([facility])[address] [place] [address] WBC (Bld) [#/Vol] 7.03 10*3/uL Normal 4.00-10.60 [facility] Comment on above: Performed By: #### L [id number] ####[facility] (BEAKER)[address] [place] [address] CONSULTon 08-23-2024 CONSULT Normal [facility] LIPID PANELon 08-23-2024 CHOL/HDL 7.8 mg/dL Normal [facility] Comment on above: Performed By: #### L [id number] ####[facility] (BEAKER)[address] [place] [address] Cholesterol [Mass/Vol] 195 mg/dL Normal 120-200 [facility] Comment on above: Performed By: #### L [id number] ####[facility] [place] [address] Magnesium [Mass/Vol] 177 mg/dL High 40-149 [facility] Comment on above: Result Comment: TRIG LYCERIDE REFERENCE RANGE:20 YEARS AND OLDER CARDIOVASCULAR RISKLESS THAN 150 mg/dL LOW [id number] TO 199 mg/dL BORDERLINE [id number] mg/dL AND GREATER HIGH RISK Performed By: #### L [id number] ####[facility] [place] [address] Magnesium [Mass/Vol] 135 mg/dL Normal 0-160 [facility] Comment on above: Performed By: #### L [id number] ####[facility] (BEAKER)[address] [place] [address] Magnesium [Mass/Vol] 25 mg/dL Normal 23-92 [facility] Comment on above: Performed By: #### L [id number] ####[facility] (BEAKER)[address] [place] [address] NON HDL CHOL. (LDL+VLDL) 170 Normal [facility] Comment on above: Performed By: #### L [id number] ####[facility] (BEAKER)[address] [place] [address] TOTAL VLDL-C 35 mg/dL Normal 0-40 [facility] Comment on above: Performed By: #### L [id number] ####[facility] (BEAKER)[address] [place] [address] POCT GLUCOSE METER UNSOLICIT ED RESULTSon 08-23-2024 Glucose [Mass/Vol] 169 mg/dL High 70-105 [facility] Comment on above: Order Comment: Waive d Testing in the ED is performed under the ED CLIA certificate #[id number]. Result Comment: enoch tti Performed By: #### L [id number] ####[facility] ([facility])[address] [facility] [place] [address] Glucose [Mass/Vol] 183 mg/dL High 70-105 [facility] Comment on above: Order Comment: Waive d Testing in the ED is performed under the ED CLIA certificate #[id number]. Result Comment: ezab ors2 Performed By: #### L [id number] ####[facility] ([facility])[address] [place] [address] Glucose [Mass/Vol] 283 mg/dL High 70-105 [facility] Comment on above: Order Comment: Waive d Testing in the ED is performed under the ED CLIA certificate #[id number]. Result Comment: ezab ors2 Performed By: #### L [id number] ####[facility] ([facility])[address] [place] [address] Glucose [Mass/Vol] 258 mg/dL High 70-105 [facility] Comment on above: Order Comment: Waive d Testing in the ED is performed under the ED CLIA certificate #[id number]. Result Comment: tful ks2 Performed By: #### L [id number] ####[facility] ([facility])[address] [facility] [place] [address] 30on 08-22-2024 30 Normal [facility] ANTI-XA (HEPARIN LEVEL)on HEPARIN UNFRACTIONATED (U/ML) IN PPP BY CHROMOGENIC METHOD 0.31 IU/mL Normal 0.3-0.7 [facility] Comment on above: Result Comment: [place] roxaban and Apixaban will interfere with the anti Xa assay used to monitor UFH and LMWH. Performed By: #### L [id number] ####[facility] ([facility])[address] [facility] [place] [address] BASIC METABOLIC PANELon Anion gap [Moles/Vol] 10 mmol/L Normal 7-20 [facility] Comment on above: Performed By: #### L [id number] ####[facility] ([facility])[address] [place] [address] Calcium [Mass/Vol] 9.6 mg/dL Normal 8.6-10.3 [facility] Comment on above: Performed By: #### L [id number] ####[facility] ([facility])[address] [place] [address] Chloride [Moles/Vol] 102 mmol/L Normal 98-107 [facility] Comment on above: Performed By: #### L [id number] ####[facility] ([facility])[address] [place] [address] CO2 [Moles/Vol] 32 mmol/L High 21-[address] [facility] Comment on above: Performed By: #### L [id number] ####[facility] ([facility])[address] [place] [address] Creatinine [Mass/Vol] 1.01 mg/dL Normal 0.70-1.30 [facility] Comment on above: Performed By: #### L [id number] ####[facility] ([facility])[address] [place] [address] GLOMERULAR FILTRATION RATE ML/MIN/1.73 SQ M.PREDICTED 82.5 mL/min/1.73m*2 Normal >60.0 [facility] Comment on above: Result Comment: [facility]???s estimated glomerular filtration rate (eGFR) will no [...] By: #### L [id number] ####[facility] [place] [address] Glucose [Mass/Vol] 263 mg/dL High 70-100 [facility] Comment on above: Performed By: #### L [id number] ####[facility] ([facility])[address] [place] [address] Potassium [Moles/Vol] 3.7 mmol/L Normal 3.5-5.1 [facility] Comment on above: Performed By: #### L [id number] ####[facility] ([facility])[address] [place] [address] Sodium [Moles/Vol] 140 mmol/L Normal 136-145 [facility] Comment on above: Performed By: #### L [id number] ####[facility] ([facility])[address] [place] [address] Urea nitrogen [Mass/Vol] 33 mg/dL High 7-25 [facility] Comment on above: Performed By: #### L [id number] ####[facility] ([facility])[address] [place] [address] UREA NITROGEN/CREATININE (MASS RATIO) IN SER/PLAS 32.7 Normal [facility] Comment on above: Performed By: #### L [id number] ####[facility] ([facility])[address] [place] [address] CBC WITH AUTO DIFFERENTIALon 08-22-2024 Basophils (Bld) [#/Vol] 0.05 10*3/uL Normal 0.00-0.20 [facility] Comment on above: Performed By: #### L [id number] ####[facility] ([facility])[address] [place] [address] Basophils/100 WBC (Bld) 0.5 % Normal 0.0-1.0 [facility] Comment on above: Performed By: #### L [id number] ####[facility] [place] [address] Eosinophils (Bld) [#/Vol] 0.36 10*3/uL Normal 0.00-0.50 [facility] Comment on above: Performed By: #### L [id number] ####[facility] (BEAKER)[address] [place] [address] Eosinophils/100 WBC (Bld) 3.9 % Normal 0.0-6.0 [facility] Comment on above: Performed By: #### L [id number] ####[facility] ([facility])[address] [place] [address] Erythrocyte distribution width (RBC) [Ratio] 14.7 % Normal 11.5-15.0 [facility] Comment on above: Performed By: #### L [id number] ####[facility] ([facility])[address] [place] [address] ERYTHROCYTE MEAN CORPUSCULAR HEMOGLOBIN CONCENTRATION (G/DL) BY AUTOMATED 30.8 g/dL Low 32.0-35.0 [facility] Comment on above: Performed By: #### L [id number] ####[facility] [place] [address] Hematocrit (Bld) [Volume fraction] 52.9 % Normal 39.0-55.0 [facility] Comment on above: Performed By: #### L [id number] ####[facility] [place] [address] Hemoglobin (Bld) [Mass/Vol] 16.3 g/dL Normal 13.0-17.0 [facility] Comment on above: Performed By: #### L [id number] ####[facility] [place] [address] Immature granulocytes (Bld) [#/Vol] 0.07 10*3/uL Normal 0.00-0.20 [facility] Comment on above: Performed By: #### L [id number] ####[facility] (BEAKER)[address] [place] [address] Immature granulocytes/100 WBC (Bld) 0.7 % Normal 0.0-1.0 [facility] Comment on above: Performed By: #### L [id number] ####[facility] [place] [address] Lymphocytes (Bld) [#/Vol] 1.16 10*3/uL Low 1.20-4.00 [facility] Comment on above: Performed By: #### L [id number] ####[facility] ([facility])[address] [place] [address] Lymphocytes/100 WBC (Bld) 12.4 % Low 20.0-45.0 [facility] Comment on above: Performed By: #### L [id number] ####[facility] ([facility])[address] [place] [address] MCH (RBC) [Entitic mass] 28.8 pg Normal 27.0-33.0 [facility] Comment on above: Performed By: #### L [id number] ####[facility] ([facility])[address] [place] [address] MCV (RBC) [Entitic vol] 93.5 fL Normal 82.0-98.0 [facility] Comment on above: Performed By: #### L [id number] ####[facility] ([facility])[address] [place] [address] Monocytes (Bld) [#/Vol] 1.21 10*3/uL High 0.10-1.00 [facility] Comment on above: Performed By: #### L [id number] ####[facility] ([facility])[address] [place] [address] Monocytes/100 WBC (Bld) 12.9 % High 5.0-12.0 [facility] Comment on above: Performed By: #### L [id number] ####[facility] [place] [address] Neutrophils (Bld) [#/Vol] 6.50 10*3/uL Normal 1.60-7.60 [facility] Comment on above: Performed By: #### L [id number] ####[facility] [place] [address] Neutrophils/100 WBC (Bld) 69.6 % Normal 40.0-72.0 [facility] Comment on above: Performed By: #### L [id number] ####[facility] [place] [address] NRBC (PER 100 WBCS) BY AUTOMATED COUNT 0.0 % Normal 0 [facility] Comment on above: Performed By: #### L [id number] ####[facility] ([facility])[address] [place] [address] PLATELETS (10*3/UL) IN BLOOD AUTOMATED COUNT 187 10*3/uL Normal 150-400 [facility] Comment on above: Performed By: #### L [id number] ####[facility] ([facility])[address] [place] [address] RBC (Bld) [#/Vol] 5.66 10*6/uL Normal 4.20-5.70 [facility] Comment on above: Performed By: #### L [id number] ####[facility] ([facility])[address] [place] [address] WBC (Bld) [#/Vol] 9.35 10*3/uL Normal 4.00-10.60 [facility] Comment on above: Performed By: #### L [id number] ####[facility] ([facility])[address] [place] [address] POCT GLUCOSE METER UNSOLICIT ED RESULTSon 08-22-2024 Glucose [Mass/Vol] 256 mg/dL High 70-105 [facility] Comment on above: Order Comment: Waive d Testing in the ED is performed under the ED CLIA certificate #[id number]. Result Comment: ezab ors2 Performed By: #### L [id number] ####[facility] [place] [address] Glucose [Mass/Vol] 277 mg/dL High 70-105 [facility] Comment on above: Order Comment: Waive d Testing in the ED is performed under the ED CLIA certificate #[id number]. Result Comment: ezab ors2 Performed By: #### L [id number] ####[facility] (BEAKER)[address] [place] [address] ANTI-XA (HEPARIN LEVEL)on HEPARIN UNFRACTIONATED (U/ML) IN PPP BY CHROMOGENIC METHOD 0.30 IU/mL Normal 0.3-0.7 [facility] Comment on above: Result Comment: [place] roxaban and Apixaban will interfere with the anti Xa assay used to monitor UFH and LMWH. Performed By: #### L [id number] ####[facility] (BEAKER)[address] [place] [address] ARTERIAL BLOOD GAS WITH CO-O XIMETRYon 08-21-2024 Base excess Calc (Bld) [Moles/Vol] 6.7 mmol/L High -2.0-3.0 [facility] Comment on above: Performed By: #### L [id number] ####[facility] [id number] [place] [address] [facility] CARBOXYHEMOGLOBIN/HEMO GLOBIN TOTAL % IN BLOOD 2.0 % Normal 0.0-3.0 [facility] Comment on above: Performed By: #### L [id number] ####[facility] [id number] [place] [address] [place] CO2 (Bld) [Partial pressure] 43 mm[Hg] Normal 35-48 [facility] Comment on above: Performed By: #### L [id number] ####[facility] [id number] [place] [address] [place] DEOXYGENATED HEMOGLOBIN IN BLOOD 4.9 % Normal 1-5 [facility] Comment on above: Performed By: #### L [id number] ####[facility] [id number] [place] [address] [place] FIO2 50 % Normal [facility] Comment on above: Performed By: #### L [id number] ####[facility] [id number] [facility] [place] [address] [facility] HCO3 (Bld) [Moles/Vol] 31.3 mmol/L High 21.0-28.0 [facility] Comment on above: Performed By: #### L [id number] ####[facility] [id number] [facility] [place] [address] [facility] Hemoglobin (Bld) [Mass/Vol] 16.5 g/dL Normal 11.7-17.4 [facility] Comment on above: Performed By: #### L [id number] ####[facility] RESPIRATORY [id number] [place] [address] [facility] METHEMOGLOBIN/100 IN BLOOD 0.7 % Normal 0.0-1.5 [facility] Comment on above: Performed By: #### L [id number] ####[facility] RESPIRATORY [id number] [place] [address] [facility] Oxygen (Bld) [Partial pressure] 68 mm[Hg] Low 83-100 [facility] Comment on above: Performed By: #### L [id number] ####[facility] RESPIRATORY [id number] [place] [address] [facility] OXYGEN SATURATION (%) IN ARTERIAL BLOOD 95.0 % Normal 94.0-98.0 [facility] Comment on above: Performed By: #### L [id number] ####[facility] [id number] [place] [address] [facility] OXYGENATED HEMOGLOBIN IN BLOOD 92.4 % Normal 90.0-95.0 [facility] Comment on above: Performed By: #### L [id number] ####[facility] [id number] [place] [address] [facility] pH (Bld) 7.47 [pH] High 7.35-7.45 [facility] Comment on above: Performed By: #### L [id number] ####[facility] [id number] [facility] [place] [address] [facility] SOURCE OF OXYGEN Bi-PAP Normal [facility] Comment on above: Performed By: #### L [id number] ####[facility] [id number] [place] [address] [place] Base excess Calc (Bld) [Moles/Vol] 5.1 mmol/L High -2.0-3.0 [facility] Comment on above: Performed By: #### L [id number] ####[facility] [id number] [place] [address] [place] CARBOXYHEMOGLOBIN/HEMO GLOBIN TOTAL % IN BLOOD 1.9 % Normal 0.0-3.0 [facility] Comment on above: Performed By: #### L [id number] ####[facility] [id number] [address] [facility] [place] [address] [place] CO2 (Bld) [Partial pressure] 46 mm[Hg] Normal 35-48 [facility] Comment on above: Performed By: #### L [id number] ####[facility] [id number] [address] [facility] [place] [address] [facility] DEOXYGENATED HEMOGLOBIN IN BLOOD 15.8 % Critically high 1-5 [facility] Comment on above: Performed By: #### L [id number] ####[facility] [id number] [place] [facility] [place] [address] [place] HCO3 (Bld) [Moles/Vol] 30.5 mmol/L High 21.0-28.0 [facility] Comment on above: Performed By: #### L [id number] ####[facility] [id number] [place] [facility] [place] [address] [place] Hemoglobin (Bld) [Mass/Vol] 16.4 g/dL Normal 11.7-17.4 [facility] Comment on above: Performed By: #### L [id number] ####[facility] [id number] [place] [facility] [place] [address] [place] LPM 15 Normal [facility] Comment on above: Performed By: #### L [id number] ####[facility] [id number] [place] [address] [place] METHEMOGLOBIN/100 IN BLOOD 0.6 % Normal 0.0-1.5 [facility] Comment on above: Performed By: #### L [id number] ####[facility] [id number] [place] [address] [place] Oxygen (Bld) [Partial pressure] 53 mm[Hg] Invalid Interpretation Code 83-100 [facility] Comment on above: Performed By: #### L [id number] ####[facility] [id number] [place] [address] [facility] OXYGEN SATURATION (%) IN ARTERIAL BLOOD 83.8 % Invalid Interpretation Code 94.0-98.0 [facility] Comment on above: Performed By: #### L [id number] ####[facility] [id number] [place] [address] [facility] OXYGENATED HEMOGLOBIN IN BLOOD 81.7 % Invalid Interpretation Code 90.0-95.0 [facility] Comment on above: Performed By: #### L [id number] ####[facility] [id number] [place] [address] [facility] pH (Bld) 7.43 [pH] Normal 7.35-7.45 [facility] Comment on above: Performed By: #### L [id number] ####[facility] [id number] [place] [address] [facility] SOURCE OF OXYGEN SALTER Normal [facility] Comment on above: Performed By: #### L [id number] ####[facility] [id number] [place] [address] [facility] ARTERIAL BLOOD GAS WITH IONI ZED CALCIUMon 08-21-2024 Base excess Calc (Bld) [Moles/Vol] 6.2 mmol/L High -2.0-3.0 [facility] Comment on above: Performed By: #### L [id number] ####[facility] [id number] [place] [address] [place] CALCIUM IONIZED (MMOL/L) IN BLOOD 1.30 mmol/L Normal 1.15-1.33 [facility] Comment on above: Performed By: #### L [id number] ####[facility] [id number] [place] [address] [facility] CO2 (Bld) [Partial pressure] 45 mm[Hg] Normal 35-48 [facility] Comment on above: Performed By: #### L [id number] ####[facility] [id number] [facility] [place] [address] [place] FIO2 50 % Normal [facility] Comment on above: Performed By: #### L [id number] ####[facility] [id number] [facility] [place] [address] [facility] HCO3 (Bld) [Moles/Vol] 31.3 mmol/L High 21.0-28.0 [facility] Comment on above: Performed By: #### L [id number] ####[facility] [id number] [place] [address] [facility] Oxygen (Bld) [Partial pressure] 70 mm[Hg] Low 83-100 [facility] Comment on above: Performed By: #### L [id number] ####[facility] [id number] [place] [address] [facility] OXYGEN SATURATION (%) IN ARTERIAL BLOOD 94.9 % Normal 94.0-98.0 [facility] Comment on above: Performed By: #### L [id number] ####[facility] [id number] [facility] [place] [address] [place] PEEP 8 cmH2O Normal [facility] Comment on above: Performed By: #### L [id number] ####[facility] [id number] [place] [address] [facility] pH (Bld) 7.45 [pH] Normal 7.35-7.45 [facility] Comment on above: Performed By: #### L [id number] ####[facility] [id number] [facility] [place] [address] [place] PRESSURE SUPPORT 14 Normal [facility] Comment on above: Performed By: #### L [id number] ####[facility] [id number] [facility] [place] [address] [facility] SOURCE OF OXYGEN Bi-PAP Normal [facility] Comment on above: Performed By: #### L [id number] ####[facility] [id number] [place] [address] [facility] BASIC METABOLIC PANELon 02-0 Anion gap [Moles/Vol] 11 mmol/L Normal 7-20 [facility] Comment on above: Performed By: #### L [id number] ####[facility] LAB (BEAKER)[address] [place] [address] Calcium [Mass/Vol] 9.4 mg/dL Normal 8.6-10.3 [facility] Comment on above: Performed By: #### L [id number] ####[facility] LAB (BEAKER)[address] [place] [address] Chloride [Moles/Vol] 101 mmol/L Normal 98-107 [facility] Comment on above: Performed By: #### L [id number] ####[facility] LAB (BEAKER)[address] [place] [address] CO2 [Moles/Vol] 30 mmol/L Normal 21-[address] [facility] Comment on above: Performed By: #### L [id number] ####[facility] LAB (BEAKER)[address] [place] [address] Creatinine [Mass/Vol] 1.05 mg/dL Normal 0.70-1.30 [facility] Comment on above: Performed By: #### L [id number] ####[facility] LAB (BEAKER)[address] [place] [address] GLOMERULAR FILTRATION RATE ML/MIN/1.73 SQ M.PREDICTED 78.8 mL/min/1.73m*2 Normal >60.0 [facility] Comment on above: Result Comment: [facility]???s estimated glomerular filtration rate (eGFR) will no [...] By: #### L [id number] ####[facility] LAB ([facility])[address] [place] [address] Glucose [Mass/Vol] 269 mg/dL High 70-100 [facility] Comment on above: Performed By: #### L [id number] ####[facility] LAB ([facility])[address] [place] [address] Potassium [Moles/Vol] 4.0 mmol/L Normal 3.5-5.1 [facility] Comment on above: Performed By: #### L [id number] ####[facility] LAB ([facility])[address] [place] [address] Sodium [Moles/Vol] 138 mmol/L Normal 136-145 [facility] Comment on above: Performed By: #### L [id number] ####[facility] LAB ([facility])[address] [place] [address] Urea nitrogen [Mass/Vol] 35 mg/dL High 7-25 [facility] Comment on above: Performed By: #### L [id number] ####[facility] LAB ([facility])[address] [place] [address] UREA NITROGEN/CREATININE (MASS RATIO) IN SER/PLAS 33.3 Normal [facility] Comment on above: Performed By: #### L [id number] ####[facility] LAB ([facility])[address] [place] [address] CALCIUM, IONIZEDon CALCIUM IONIZED (MMOL/L) IN BLOOD 1.29 mmol/L Normal 1.15-1.33 [facility] Comment on above: Performed By: #### C ALCIUM, IONIZED ####[facility] [id number] [place] [address] [place] CBC WITH AUTO DIFFERENTIALon 08-21-2024 Basophils (Bld) [#/Vol] 0.05 10*3/uL Normal 0.00-0.20 [facility] Comment on above: Performed By: #### L [id number] ####[facility] LAB (BEAKER)[address] [place] [address] Basophils/100 WBC (Bld) 0.6 % Normal 0.0-1.0 [facility] Comment on above: Performed By: #### L [id number] ####[facility] LAB (BEAKER)[address] [place] [address] Eosinophils (Bld) [#/Vol] 0.43 10*3/uL Normal 0.00-0.50 [facility] Comment on above: Performed By: #### L [id number] ####[facility] LAB (BEAKER)[address] [place] [address] Eosinophils/100 WBC (Bld) 5.2 % Normal 0.0-6.0 [facility] Comment on above: Performed By: #### L [id number] ####[facility] LAB (BEAKER)[address] [place] [address] Erythrocyte distribution width (RBC) [Ratio] 14.8 % Normal 11.5-15.0 [facility] Comment on above: Performed By: #### L [id number] ####[facility] LAB (BEAKER)[address] [place] [address] ERYTHROCYTE MEAN CORPUSCULAR HEMOGLOBIN CONCENTRATION (G/DL) BY AUTOMATED 31.1 g/dL Low 32.0-35.0 [facility] Comment on above: Performed By: #### L [id number] ####[facility] LAB (BEAKER)[address] [place] [address] Hematocrit (Bld) [Volume fraction] 52.1 % Normal 39.0-55.0 [facility] Comment on above: Performed By: #### L [id number] ####[facility] LAB (BEAKER)[address] [place] [address] Hemoglobin (Bld) [Mass/Vol] 16.2 g/dL Normal 13.0-17.0 [facility] Comment on above: Performed By: #### L [id number] ####[facility] LAB (BEAKER)[address] [place] [address] Immature granulocytes (Bld) [#/Vol] 0.06 10*3/uL Normal 0.00-0.20 [facility] Comment on above: Performed By: #### L [id number] ####[facility] LAB (BEAKER)[address] [place] [address] Immature granulocytes/100 WBC (Bld) 0.7 % Normal 0.0-1.0 [facility] Comment on above: Performed By: #### L [id number] ####[facility] LAB (BEAKER)[address] [place] [address] Lymphocytes (Bld) [#/Vol] 1.10 10*3/uL Low 1.20-4.00 [facility] Comment on above: Performed By: #### L [id number] ####[facility] LAB (BEAKER)[address] [place] [address] Lymphocytes/100 WBC (Bld) 13.3 % Low 20.0-45.0 [facility] Comment on above: Performed By: #### L [id number] ####[facility] LAB (BEAKER)[address] [place] [address] MCH (RBC) [Entitic mass] 29.1 pg Normal 27.0-33.0 [facility] Comment on above: Performed By: #### L [id number] ####[facility] LAB (BEAKER)[address] [place] [address] MCV (RBC) [Entitic vol] 93.7 fL Normal 82.0-98.0 [facility] Comment on above: Performed By: #### L [id number] ####[facility] LAB (BEAKER)[address] [place] [address] Monocytes (Bld) [#/Vol] 0.92 10*3/uL Normal 0.10-1.00 [facility] Comment on above: Performed By: #### L [id number] ####[facility] LAB (BEAKER)[address] [place] [address] Monocytes/100 WBC (Bld) 11.1 % Normal 5.0-12.0 [facility] Comment on above: Performed By: #### L [id number] ####[facility] [place] [address] Neutrophils (Bld) [#/Vol] 5.72 10*3/uL Normal 1.60-7.60 [facility] Comment on above: Performed By: #### L [id number] ####[facility] ([facility])[address] [place] [address] Neutrophils/100 WBC (Bld) 69.1 % Normal 40.0-72.0 [facility] Comment on above: Performed By: #### L [id number] ####[facility] ([facility])[address] [place] [address] NRBC (PER 100 WBCS) BY AUTOMATED COUNT 0.0 % Normal 0 [facility] Comment on above: Performed By: #### L [id number] ####[facility] ([facility])[address] [place] [address] PLATELETS (10*3/UL) IN BLOOD AUTOMATED COUNT 199 10*3/uL Normal 150-400 [facility] Comment on above: Performed By: #### L [id number] ####[facility] ([facility])[address] [place] [address] RBC (Bld) [#/Vol] 5.56 10*6/uL Normal 4.20-5.70 [facility] Comment on above: Performed By: #### L [id number] ####[facility] ([facility])[address] [place] [address] WBC (Bld) [#/Vol] 8.28 10*3/uL Normal 4.00-10.60 [facility] Comment on above: Performed By: #### L [id number] ####[facility] LAB (BEAKER)[address] [place] [address] CT BRAIN PERFUSIONon 025 CT BRAIN PERFUSION Invalid Interpretation Code [facility] CT HEAD WO IV CONTRASTon CT HEAD WO IV CONTRAST [facility] HEAD W IV CONTRASTon CTA HEAD W IV CONTRAST Normal [facility] CTA NECK W IV CONTRASTon CTA NECK W IV CONTRAST [facility] MAGNESIUMon 08-21-2024 Magnesium [Mass/Vol] 1.8 mg/dL Low 1.9-2.7 [facility] Comment on above: Performed By: #### L [id number] ####[facility] LAB (BEAKER)[address] [place] [address] MRSA/MSSA DNA NASALon 2024 MRSA DNA Positive Abnormal Negative [facility] Comment on above: Order Comment: Testi ng [...] preclude nasal colonization. Performed By: #### L [id number] ####[facility] LAB (BEAKER)[address] [place] [address] MSSA DNA Negative Normal Negative [facility] Comment on above: Order Comment: Testi ng [...] preclude nasal colonization. Performed By: #### L [id number] ####[facility] LAB (BEAKER)[address] [place] [address] PHOSPHORUSon 08-21-2024 Magnesium [Mass/Vol] 2.5 mg/dL Normal 2.5-5.0 [facility] Comment on above: Performed By: #### L [id number] ####[facility] (BEAKER)[address] [place] [address] POCT GLUCOSE METER UNSOLICIT ED RESULTSon 08-21-2024 Glucose [Mass/Vol] 230 mg/dL High 70-105 [facility] Comment on above: Order Comment: Waive d Testing in the ED is performed under the ED CLIA certificate #[id number]. Result Comment: [email or web address] Performed By: #### L [id number] ####[facility] ([facility])[address] [place] [address] Glucose [Mass/Vol] 226 mg/dL High 70-105 [facility] Comment on above: Order Comment: Waive d Testing in the ED is performed under the ED CLIA certificate #[id number]. Result Comment: [email or web address] Performed By: #### L [id number] ####[facility] ([facility])[address] [place] [address] Glucose [Mass/Vol] 229 mg/dL High 70-105 [facility] Comment on above: Order Comment: Waive d Testing in the ED is performed under the ED CLIA certificate #[id number]. Result Comment: [email or web address] Performed By: #### L [id number] ####[facility] ([facility])[address] [place] [address] Glucose [Mass/Vol] 234 mg/dL High 70-105 [facility] Comment on above: Order Comment: Waive d Testing in the ED is performed under the ED CLIA certificate #[id number]. Result Comment: [email or web address] Performed By: #### L [id number] ####[facility] ([facility])[address] [place] [address] POTASSIUM, WHOLE BLOODon Potassium [Moles/Vol] 3.3 mmol/L Low 3.5-5.1 [facility] Comment on above: Performed By: #### P OTASSIUM, WHOLE BLOOD ####[facility] [id number] [place] [address] [place] SODIUM, WHOLE BLOODon 2024 SODIUM, WHOLE BLOOD 137 Normal 136-145 [facility] Comment on above: Performed By: #### S ODIUM, WHOLE BLOOD ####[facility] [id number] [place] [address] [place] 30on 08-20-2024 30 Normal [facility] ANTI-XA (HEPARIN LEVEL)on HEPARIN UNFRACTIONATED (U/ML) IN PPP BY CHROMOGENIC METHOD 0.30 IU/mL Normal 0.3-0.7 [facility] Comment on above: Result Comment: Tatyana roxaban and Apixaban will interfere with the anti Xa assay used to monitor UFH and LMWH. Performed By: #### L [id number] ####[facility] LAB (BEAKER)[address] [place] [address] BASIC METABOLIC PANELon 07-23 Anion gap [Moles/Vol] 8 mmol/L Normal 7-20 [facility] Comment on above: Performed By: #### L [id number] ####[facility] LAB (BEAKER)[address] [place] [address] Calcium [Mass/Vol] 9.4 mg/dL Normal 8.6-10.3 [facility] Comment on above: Performed By: #### L [id number] ####[facility] (BEAKER)[address] [place] [address] Chloride [Moles/Vol] 99 mmol/L Normal 98-107 [facility] Comment on above: Performed By: #### L [id number] ####[facility] (BEAKER)[address] [place] [address] CO2 [Moles/Vol] 34 mmol/L High -[address] [facility] Comment on above: Performed By: #### L [id number] ####[facility] (BEAKER)[address] [place] [address] Creatinine [Mass/Vol] 0.97 mg/dL Normal 0.70-1.30 [facility] Comment on above: Performed By: #### L [id number] ####[facility] ([facility])[address] [place] [address] GLOMERULAR FILTRATION RATE ML/MIN/1.73 SQ M.PREDICTED 86.6 mL/min/1.73m*2 Normal >60.0 [facility] Comment on above: Result Comment: [facility]???s estimated glomerular filtration rate (eGFR) will no [...] By: #### L [id number] ####[facility] ([facility])[address] [place] [address] Glucose [Mass/Vol] 267 mg/dL High 70-100 [facility] Comment on above: Performed By: #### L [id number] ####[facility] ([facility])[address] [place] [address] Potassium [Moles/Vol] 3.9 mmol/L Normal 3.5-5.1 [facility] Comment on above: Performed By: #### L [id number] ####[facility] ([facility])[address] [place] [address] Sodium [Moles/Vol] 137 mmol/L Normal 136-145 [facility] Comment on above: Performed By: #### L [id number] ####[facility] ([facility])[address] [place] [address] Urea nitrogen [Mass/Vol] 33 mg/dL High 7-25 [facility] Comment on above: Performed By: #### L [id number] ####[facility] ([facility])[address] [place] [address] UREA NITROGEN/CREATININE (MASS RATIO) IN SER/PLAS 34.0 Normal [facility] Comment on above: Performed By: #### L [id number] ####[facility] [place] [address] CBC WITH AUTO DIFFERENTIALon 08-20-2024 Basophils (Bld) [#/Vol] 0.04 10*3/uL Normal 0.00-0.20 [facility] Comment on above: Performed By: #### L [id number] ####[facility] [place] [address] Basophils/100 WBC (Bld) 0.4 % Normal 0.0-1.0 [facility] Comment on above: Performed By: #### L [id number] ####[facility] ([facility])[address] [place] [address] Eosinophils (Bld) [#/Vol] 0.58 10*3/uL High 0.00-0.50 [facility] Comment on above: Performed By: #### L [id number] ####[facility] [place] [address] Eosinophils/100 WBC (Bld) 5.6 % Normal 0.0-6.0 [facility] Comment on above: Performed By: #### L [id number] ####[facility] [place] [address] Erythrocyte distribution width (RBC) [Ratio] 15.1 % High 11.5-15.0 [facility] Comment on above: Performed By: #### L [id number] ####[facility] LAB (BEAKER)[address] [place] [address] ERYTHROCYTE MEAN CORPUSCULAR HEMOGLOBIN CONCENTRATION (G/DL) BY AUTOMATED 30.5 g/dL Low 32.0-35.0 [facility] Comment on above: Performed By: #### L [id number] ####[facility] (BEAKER)[address] [place] [address] Hematocrit (Bld) [Volume fraction] 52.1 % Normal 39.0-55.0 [facility] Comment on above: Performed By: #### L [id number] ####[facility] (BEAKER)[address] [place] [address] Hemoglobin (Bld) [Mass/Vol] 15.9 g/dL Normal 13.0-17.0 [facility] Comment on above: Performed By: #### L [id number] ####[facility] [facility] ([facility] [place] [address] Immature granulocytes (Bld) [#/Vol] 0.07 10*3/uL Normal 0.00-0.20 [facility] Comment on above: Performed By: #### L [id number] ####[facility] (BEAKER)[address] [place] [address] Immature granulocytes/100 WBC (Bld) 0.7 % Normal 0.0-1.0 [facility] Comment on above: Performed By: #### L [id number] ####[facility] (BEAKER)[address] [place] [address] Lymphocytes (Bld) [#/Vol] 0.94 10*3/uL Low 1.20-4.00 [facility] Comment on above: Performed By: #### L [id number] ####[facility] (BEAKER)[address] [place] [address] Lymphocytes/100 WBC (Bld) 9.1 % Low 20.0-45.0 [facility] Comment on above: Performed By: #### L [id number] ####[facility] (BEAKER)[address] [place] [address] MCH (RBC) [Entitic mass] 29.0 pg Normal 27.0-33.0 [facility] Comment on above: Performed By: #### L [id number] ####[facility] (BEAKER)[address] [place] [address] MCV (RBC) [Entitic vol] 94.9 fL Normal 82.0-98.0 [facility] Comment on above: Performed By: #### L [id number] ####[facility] [place] [address] Monocytes (Bld) [#/Vol] 0.95 10*3/uL Normal 0.10-1.00 [facility] Comment on above: Performed By: #### L [id number] ####[facility] ([facility])[address] [place] [address] Monocytes/100 WBC (Bld) 9.2 % Normal 5.0-12.0 [facility] Comment on above: Performed By: #### L [id number] ####[facility] ([facility])[address] [place] [address] Neutrophils (Bld) [#/Vol] 7.72 10*3/uL High 1.60-7.60 [facility] Comment on above: Performed By: #### L [id number] ####[facility] ([facility])[address] [place] [address] Neutrophils/100 WBC (Bld) 75.0 % High 40.0-72.0 [facility] Comment on above: Performed By: #### L [id number] ####[facility] ([facility])[address] [place] [address] NRBC (PER 100 WBCS) BY AUTOMATED COUNT 0.0 % Normal 0 [facility] Comment on above: Performed By: #### L [id number] ####[facility] ([facility])[address] [place] [address] PLATELETS (10*3/UL) IN BLOOD AUTOMATED COUNT 209 10*3/uL Normal 150-400 [facility] Comment on above: Performed By: #### L [id number] ####[facility] [place] [address] RBC (Bld) [#/Vol] 5.49 10*6/uL Normal 4.20-5.70 [facility] Comment on above: Performed By: #### L [id number] ####[facility] ([facility])[address] [place] [address] WBC (Bld) [#/Vol] 10.30 10*3/uL Normal 4.00-10.60 [facility] Comment on above: Performed By: #### L [id number] ####[facility] ([facility])[address] [place] [address] MAGNESIUMon 08-20-2024 Magnesium [Mass/Vol] 1.9 mg/dL Normal 1.9-2.7 [facility] Comment on above: Performed By: #### L [id number] ####[facility] ([facility])[address] [place] [address] PHOSPHORUSon 08-20-2024 Magnesium [Mass/Vol] 2.1 mg/dL Low 2.5-5.0 [facility] Comment on above: Performed By: #### L [id number] ####[facility] ([facility])[address] [place] [address] POCT GLUCOSE METER UNSOLICIT ED RESULTSon 08-20-2024 Glucose [Mass/Vol] 268 mg/dL High 70-105 [facility] Comment on above: Order Comment: Waive d Testing in the ED is performed under the ED CLIA certificate #[id number]. Result Comment: [email or web address] [email or web address] Performed By: #### L [id number] ####[facility] ([facility])[address] [place] [address] 30on 08-19-2024 30 Normal [facility] 30 Normal [facility] ANTI-XA (HEPARIN LEVEL)on HEPARIN UNFRACTIONATED (U/ML) IN PPP BY CHROMOGENIC METHOD 0.41 IU/mL Normal 0.3-0.7 [facility] Comment on above: Result Comment: [place] roxaban and Apixaban will interfere with the anti Xa assay used to monitor UFH and LMWH. Performed By: #### L [id number] ####[facility] ([facility])[address] [place] [address] BASIC METABOLIC PANELon -3 Anion gap [Moles/Vol] 8 mmol/L Normal 7-20 [facility] Comment on above: Performed By: #### L [id number] ####[facility] (BEAKER)[address] [place] [address] Calcium [Mass/Vol] 8.9 mg/dL Normal 8.6-10.3 [facility] Comment on above: Performed By: #### L [id number] ####[facility] (BEAKER)[address] [place] [address] Chloride [Moles/Vol] 99 mmol/L Normal 98-107 [facility] Comment on above: Performed By: #### L [id number] ####[facility] (BEAKER)[address] [place] [address] CO2 [Moles/Vol] 37 mmol/L High 21-[address] [facility] Comment on above: Performed By: #### L [id number] ####[facility] (BEAKER)[address] [place] [address] Creatinine [Mass/Vol] 1.00 mg/dL Normal 0.70-1.30 [facility] Comment on above: Performed By: #### L [id number] ####[facility] [place] [address] GLOMERULAR FILTRATION RATE ML/MIN/1.73 SQ M.PREDICTED 83.5 mL/min/1.73m*2 Normal >60.0 [facility] Comment on above: Result Comment: [facility]???s estimated glomerular filtration rate (eGFR) will no [...] By: #### L [id number] ####[facility] [place] [address] Glucose [Mass/Vol] 219 mg/dL High 70-100 [facility] Comment on above: Performed By: #### L [id number] ####[facility] [place] [address] Potassium [Moles/Vol] 3.9 mmol/L Normal 3.5-5.1 [facility] Comment on above: Performed By: #### L [id number] ####[facility] ([facility])[address] [place] [address] Sodium [Moles/Vol] 140 mmol/L Normal 136-145 [facility] Comment on above: Performed By: #### L [id number] ####[facility] ([facility])[address] [place] [address] Urea nitrogen [Mass/Vol] 28 mg/dL High 7-25 [facility] Comment on above: Performed By: #### L [id number] ####[facility] ([facility])[address] [place] [address] UREA NITROGEN/CREATININE (MASS RATIO) IN SER/PLAS 28.0 Normal [facility] Comment on above: Performed By: #### L [id number] ####[facility] ([facility])[address] [place] [address] CBC WITH AUTO DIFFERENTIALon 08-19-2024 Basophils (Bld) [#/Vol] 0.04 10*3/uL Normal 0.00-0.20 [facility] Comment on above: Performed By: #### L [id number] ####[facility] ([facility])[address] [place] [address] Basophils/100 WBC (Bld) 0.4 % Normal 0.0-1.0 [facility] Comment on above: Performed By: #### L [id number] ####[facility] [place] [address] Eosinophils (Bld) [#/Vol] 0.62 10*3/uL High 0.00-0.50 [facility] Comment on above: Performed By: #### L [id number] ####[facility] (BEAKER)[address] [place] [address] Eosinophils/100 WBC (Bld) 6.7 % High 0.0-6.0 [facility] Comment on above: Performed By: #### L [id number] ####[facility] (BEAKER)[address] [place] [address] Erythrocyte distribution width (RBC) [Ratio] 15.4 % High 11.5-15.0 [facility] Comment on above: Performed By: #### L [id number] ####[facility] (BEAKER)[address] [place] [address] ERYTHROCYTE MEAN CORPUSCULAR HEMOGLOBIN CONCENTRATION (G/DL) BY AUTOMATED 29.8 g/dL Low 32.0-35.0 [facility] Comment on above: Performed By: #### L [id number] ####[facility] (BEAKER)[address] [place] [address] Hematocrit (Bld) [Volume fraction] 49.4 % Normal 39.0-55.0 [facility] Comment on above: Performed By: #### L [id number] ####[facility] (BEAKER)[address] [place] [address] Hemoglobin (Bld) [Mass/Vol] 14.7 g/dL Normal 13.0-17.0 [facility] Comment on above: Performed By: #### L [id number] ####[facility] (BEAKER)[address] [place] [address] Immature granulocytes (Bld) [#/Vol] 0.06 10*3/uL Normal 0.00-0.20 [facility] Comment on above: Performed By: #### L [id number] ####[facility] (BEAKER)[address] [place] [address] Immature granulocytes/100 WBC (Bld) 0.7 % Normal 0.0-1.0 [facility] Comment on above: Performed By: #### L [id number] ####[facility] ([facility])[address] [place] [address] Lymphocytes (Bld) [#/Vol] 0.86 10*3/uL Low 1.20-4.00 [facility] Comment on above: Performed By: #### L [id number] ####[facility] ([facility])[address] [place] [address] Lymphocytes/100 WBC (Bld) 9.3 % Low 20.0-45.0 [facility] Comment on above: Performed By: #### L [id number] ####[facility] ([facility])[address] [place] [address] MCH (RBC) [Entitic mass] 28.9 pg Normal 27.0-33.0 [facility] Comment on above: Performed By: #### L [id number] ####[facility] ([facility])[address] [place] [address] MCV (RBC) [Entitic vol] 97.2 fL Normal 82.0-98.0 [facility] Comment on above: Performed By: #### L [id number] ####[facility] ([facility])[address] [place] [address] Monocytes (Bld) [#/Vol] 0.94 10*3/uL Normal 0.10-1.00 [facility] Comment on above: Performed By: #### L [id number] ####[facility] ([facility])[address] [place] [address] Monocytes/100 WBC (Bld) 10.2 % Normal 5.0-12.0 [facility] Comment on above: Performed By: #### L [id number] ####[facility] [place] [address] Neutrophils (Bld) [#/Vol] 6.68 10*3/uL Normal 1.60-7.60 [facility] Comment on above: Performed By: #### L [id number] ####[facility] (BEAKER)[address] [place] [address] Neutrophils/100 WBC (Bld) 72.7 % High 40.0-72.0 [facility] Comment on above: Performed By: #### L [id number] ####[facility] [place] [address] NRBC (PER 100 WBCS) BY AUTOMATED COUNT 0.0 % Normal 0 [facility] Comment on above: Performed By: #### L [id number] ####[facility] [place] [address] PLATELETS (10*3/UL) IN BLOOD AUTOMATED COUNT 198 10*3/uL Normal 150-400 [facility] Comment on above: Performed By: #### L [id number] ####[facility] ([facility])[address] [place] [address] RBC (Bld) [#/Vol] 5.08 10*6/uL Normal 4.20-5.70 [facility] Comment on above: Performed By: #### L [id number] ####[facility] [place] [address] WBC (Bld) [#/Vol] 9.20 10*3/uL Normal 4.00-10.60 [facility] Comment on above: Performed By: #### L [id number] ####[facility] [place] [address] CONSULTon 08-19-2024 CONSULT Normal [facility] MAGNESIUMon 08-19-2024 Magnesium [Mass/Vol] 1.9 mg/dL Normal 1.9-2.7 [facility] Comment on above: Performed By: #### L [id number] ####[facility] (BEAKER)[address] [place] [address] PHOSPHORUSon 08-19-2024 Magnesium [Mass/Vol] 2.9 mg/dL Normal 2.5-5.0 [facility] Comment on above: Performed By: #### L [id number] ####[facility] ([facility])[address] [place] [address] POCT GLUCOSE METER UNSOLICIT ED RESULTSon 08-19-2024 Glucose [Mass/Vol] 239 mg/dL High 70-105 [facility] Comment on above: Order Comment: Waive d Testing in the ED is performed under the ED CLIA certificate #[id number]. Result Comment: [email or web address] Performed By: #### L [id number] ####[facility] ([facility])[address] [place] [address] Glucose [Mass/Vol] 251 mg/dL High 70-105 [facility] Comment on above: Order Comment: Waive d Testing in the ED is performed under the ED CLIA certificate #[id number]. Result Comment: [email or web address] Performed By: #### L [id number] ####[facility] ([facility])[address] [facility] [place] [address] Glucose [Mass/Vol] 185 mg/dL High 70-105 [facility] Comment on above: Order Comment: Waive d Testing in the ED is performed under the ED CLIA certificate #[id number]. Result Comment: [email or web address] Performed By: #### L [id number] ####[facility] (mobile mum)[address] [place] [address] TRIGLYCERIDESon 08-19-2024 FASTING? UNKNOWN Normal [facility] Comment on above: Performed By: #### L [id number] ####[facility] ([facility])[address] [place] [address] Magnesium [Mass/Vol] 192 mg/dL High 40-149 [facility] Comment on above: Result Comment: TRIG LYCERIDE REFERENCE RANGE:20 YEARS AND OLDER CARDIOVASCULAR RISKLESS THAN 150 mg/dL LOW [id number] TO 199 mg/dL BORDERLINE [id number] mg/dL AND GREATER HIGH RISK Performed By: #### L [id number] ####[facility] [place] [address] ANTI-XA (HEPARIN LEVEL)on HEPARIN UNFRACTIONATED (U/ML) IN PPP BY CHROMOGENIC METHOD 0.50 IU/mL Normal 0.3-0.7 [facility] Comment on above: Result Comment: [place] roxaban and Apixaban will interfere with the anti Xa assay used to monitor UFH and LMWH. Performed By: #### L [id number] ####[facility] ([facility])[address] [place] [address] HEPARIN UNFRACTIONATED (U/ML) IN PPP BY CHROMOGENIC METHOD 0.60 IU/mL Normal 0.3-0.7 [facility] Comment on above: Result Comment: [place] roxaban and Apixaban will interfere with the anti Xa assay used to monitor UFH and LMWH. Performed By: #### L [id number] ####[facility] ([facility])[address] [place] [address] BASIC METABOLIC PANELon 07-22 Anion gap [Moles/Vol] 8 mmol/L Normal 7-20 [facility] Comment on above: Performed By: #### L [id number] ####[facility] ([facility])[address] [place] [address] Calcium [Mass/Vol] 8.7 mg/dL Normal 8.6-10.3 [facility] Comment on above: Performed By: #### L [id number] ####[facility] ([facility])[address] [place] [address] Chloride [Moles/Vol] 98 mmol/L Normal 98-107 [facility] Comment on above: Performed By: #### L [id number] ####[facility] ([facility])[address] [place] [address] CO2 [Moles/Vol] 41 mmol/L Critically high 21-31 [facility] Comment on above: Performed By: #### L [id number] ####[facility] ([facility])[address] [address] Creatinine [Mass/Vol] 1.05 mg/dL Normal 0.70-1.30 [facility] Comment on above: Performed By: #### L [id number] ####[facility] ([facility])[address] [place] [address] GLOMERULAR FILTRATION RATE ML/MIN/1.73 SQ M.PREDICTED 78.8 mL/min/1.73m*2 Normal >60.0 [facility] Comment on above: Result Comment: [facility]???s estimated glomerular filtration rate (eGFR) will no [...] By: #### L [id number] ####[facility] ([facility])[address] [place] [address] Glucose [Mass/Vol] 201 mg/dL High 70-100 [facility] Comment on above: Performed By: #### L [id number] ####[facility] ([facility])[address] [place] [address] Potassium [Moles/Vol] 3.7 mmol/L Normal 3.5-5.1 [facility] Comment on above: Performed By: #### L [id number] ####[facility] ([facility])[address] [address] Sodium [Moles/Vol] 143 mmol/L Normal 136-145 [facility] Comment on above: Performed By: #### L [id number] ####[facility] ([facility])[address] [address] Urea nitrogen [Mass/Vol] 25 mg/dL Normal 7-25 [facility] Comment on above: Performed By: #### L [id number] ####[facility] ([facility])[address] [place] [address] UREA NITROGEN/CREATININE (MASS RATIO) IN SER/PLAS 23.8 Normal [facility] Comment on above: Performed By: #### L [id number] ####[facility] ([facility])[address] [place] [address] CBC WITH AUTO DIFFERENTIALon 08-18-2024 Basophils (Bld) [#/Vol] 0.03 10*3/uL Normal 0.00-0.20 [facility] Comment on above: Performed By: #### L [id number] ####[facility] ([facility])[address] [place] [address] Basophils/100 WBC (Bld) 0.3 % Normal 0.0-1.0 [facility] Comment on above: Performed By: #### L [id number] ####[facility] ([facility])[address] [place] [address] Eosinophils (Bld) [#/Vol] 0.45 10*3/uL Normal 0.00-0.50 [facility] Comment on above: Performed By: #### L [id number] ####[facility] ([facility])[address] [place] [address] Eosinophils/100 WBC (Bld) 5.0 % Normal 0.0-6.0 [facility] Comment on above: Performed By: #### L [id number] ####[facility] ([facility])[address] [place] [address] Erythrocyte distribution width (RBC) [Ratio] 15.5 % High 11.5-15.0 [facility] Comment on above: Performed By: #### L [id number] ####[facility] ([facility])[address] [place] [address] ERYTHROCYTE MEAN CORPUSCULAR HEMOGLOBIN CONCENTRATION (G/DL) BY AUTOMATED 29.7 g/dL Low 32.0-35.0 [facility] Comment on above: Performed By: #### L [id number] ####[facility] ([facility])[address] [place] [address] Hematocrit (Bld) [Volume fraction] 49.5 % Normal 39.0-55.0 [facility] Comment on above: Performed By: #### L [id number] ####[facility] (BEAKER)[address] [place] [address] Hemoglobin (Bld) [Mass/Vol] 14.7 g/dL Normal 13.0-17.0 [facility] Comment on above: Performed By: #### L [id number] ####[facility] (BEAKER)[address] [place] [address] Immature granulocytes (Bld) [#/Vol] 0.05 10*3/uL Normal 0.00-0.20 [facility] Comment on above: Performed By: #### L [id number] ####[facility] [place] [address] Immature granulocytes/100 WBC (Bld) 0.6 % Normal 0.0-1.0 [facility] Comment on above: Performed By: #### L [id number] ####[facility] (BEAKER)[address] [place] [address] Lymphocytes (Bld) [#/Vol] 0.93 10*3/uL Low 1.20-4.00 [facility] Comment on above: Performed By: #### L [id number] ####[facility] (BEAKER)[address] [place] [address] Lymphocytes/100 WBC (Bld) 10.4 % Low 20.0-45.0 [facility] Comment on above: Performed By: #### L [id number] ####[facility] (BEAKER)[address] [place] [address] MCH (RBC) [Entitic mass] 29.2 pg Normal 27.0-33.0 [facility] Comment on above: Performed By: #### L [id number] ####[facility] (BEAKER)[address] [place] [address] MCV (RBC) [Entitic vol] 98.2 fL High 82.0-98.0 [facility] Comment on above: Performed By: #### L [id number] ####[facility] [place] [address] Monocytes (Bld) [#/Vol] 1.06 10*3/uL High 0.10-1.00 [facility] Comment on above: Performed By: #### L [id number] ####[facility] [place] [address] Monocytes/100 WBC (Bld) 11.9 % Normal 5.0-12.0 [facility] Comment on above: Performed By: #### L [id number] ####[facility] ([facility])[address] [place] [address] Neutrophils (Bld) [#/Vol] 6.41 10*3/uL Normal 1.60-7.60 [facility] Comment on above: Performed By: #### L [id number] ####[facility] ([facility])[address] [place] [address] Neutrophils/100 WBC (Bld) 71.8 % Normal 40.0-72.0 [facility] Comment on above: Performed By: #### L [id number] ####[facility] ([facility] [place] [address] NRBC (PER 100 WBCS) BY AUTOMATED COUNT 0.0 % Normal 0 [facility] Comment on above: Performed By: #### L [id number] ####[facility] [place] [address] PLATELETS (10*3/UL) IN BLOOD AUTOMATED COUNT 208 10*3/uL Normal 150-400 [facility] Comment on above: Performed By: #### L [id number] ####[facility] [place] [address] RBC (Bld) [#/Vol] 5.04 10*6/uL Normal 4.20-5.70 [facility] Comment on above: Performed By: #### L [id number] ####[facility] ([facility])[address] [place] [address] WBC (Bld) [#/Vol] 8.93 10*3/uL Normal 4.00-10.60 [facility] Comment on above: Performed By: #### L [id number] ####[facility] ([facility])[address] [place] [address] CONSULTon 08-18-2024 CONSULT Normal [facility] MAGNESIUMon 08-18-2024 Magnesium [Mass/Vol] 2.1 mg/dL Normal 1.9-2.7 [facility] Comment on above: Performed By: #### L [id number] ####[facility] ([facility])[address] [place] [address] PHOSPHORUSon 08-18-2024 Magnesium [Mass/Vol] 2.9 mg/dL Normal 2.5-5.0 [facility] Comment on above: Performed By: #### L [id number] ####[facility] ([facility])[address] [place] [address] POCT GLUCOSE METER UNSOLICIT ED RESULTSon 08-18-2024 Glucose [Mass/Vol] 194 mg/dL High 70-105 [facility] Comment on above: Order Comment: Waive d Testing in the ED is performed under the ED CLIA certificate #[id number]. Result Comment: [email or web address] [email or web address] Performed By: #### L [id number] ####[facility] ([facility])[address] [place] [address] Glucose [Mass/Vol] 183 mg/dL High 70-105 [facility] Comment on above: Order Comment: Waive d Testing in the ED is performed under the ED CLIA certificate #[id number]. Result Comment: ezab [email or web address] Performed By: #### L [id number] ####[facility] [place] [address] Glucose [Mass/Vol] 173 mg/dL High 70-105 [facility] Comment on above: Order Comment: Waive d Testing in the ED is performed under the ED CLIA certificate #[id number]. Result Comment: ezab [email or web address] Performed By: #### L [id number] ####[facility] ([facility] [place] [address] Glucose [Mass/Vol] 200 mg/dL High 70-105 [facility] Comment on above: Order Comment: Waive d Testing in the ED is performed under the ED CLIA certificate #[id number]. Result Comment: [email or web address] [email or web address] Performed By: #### L [id number] ####[facility] ([facility])[address] [place] [address] SPUTUM CULTUREon 08-18-2024 Clindamycin [Susc] <=0.5 Susceptible [facility] Comment on above: Performed By: #### L [id number] ####[facility] ([facility])[address] [place] [address] DAPTOmycin [Susc] <=1 Susceptible [facility] Comment on above: Performed By: #### L [id number] ####[facility] ([facility])[address] [place] [address] Linezolid [Susc] <=1 Susceptible [facility] Comment on above: Performed By: #### L [id number] ####[facility] ([facility])[address] [place] [address] Oxacillin [Susc] >2 Resistant [facility] Comment on above: Performed By: #### L [id number] ####[facility] ([facility] [place] [address] Tetracycline [Susc] <=0.5 Susceptible [facility] Comment on above: Performed By: #### L [id number] ####[facility] (BEAKER)[address] [place] [address] Trimethoprim+Sulfameth oxazole [Susc] <=0.5/9.5 Susceptible [facility] Comment on above: Performed By: #### L [id number] ####[facility] (BE[facility]ER)[address] [place] [address] Vancomycin [Susc] <=0.5 Susceptible [facility] Comment on above: Performed By: #### L [id number] ####[facility] [place] [address] TRIGLYCERIDESon 08-18-2024 FASTING? unknown [facility] Comment on above: Performed By: #### L [id number] ####[facility] ([facility])[address] [place] [address] Magnesium [Mass/Vol] 154 mg/dL High 40-149 [facility] Comment on above: Result Comment: TRIG LYCERIDE REFERENCE RANGE:20 YEARS AND OLDER CARDIOVASCULAR RISKLESS THAN 150 mg/dL LOW SIEN404 TO 199 mg/dL BORDERLINE KADV133 mg/dL AND GREATER HIGH RISK Performed By: #### L [id number] ####[facility] ([facility])[address] [place] [address] 30on 08-17-2024 30 Normal [facility] ANTI-XA (HEPARIN LEVEL)on HEPARIN UNFRACTIONATED (U/ML) IN PPP BY CHROMOGENIC METHOD 0.86 IU/mL High 0.3-0.7 [facility] Comment on above: Result Comment: [place] roxaban and Apixaban will interfere with the anti Xa assay used to monitor UFH and LMWH. Performed By: #### L [id number] ####[facility] ([facility])[address] [place] [address] HEPARIN UNFRACTIONATED (U/ML) IN PPP BY CHROMOGENIC METHOD >1.00 Critically high 0.3-0.7 [facility] Comment on above: Result Comment: [place] roxaban and Apixaban will interfere with the anti Xa assay used to monitor UFH and LMWH. Performed By: #### L [id number] ####[facility] (BE[facility]ER)[address] [place] [address] HEPARIN UNFRACTIONATED (U/ML) IN PPP BY CHROMOGENIC METHOD >1.00 Critically high 0.3-0.7 [facility] Comment on above: Performed By: #### L [id number] ####[facility] ([facility])[address] [place] [address] APTTon 08-17-2024 ACTIVATED PARTIAL THROMBOPLASTIN TIME IN PPP BY COAGULATION ASSAY 99.6 Seconds High 25.0-35.0 [facility] Comment on above: Result Comment: Clin ical significance of the APTT is questionable in the presence of heparin. Performed By: #### L [id number] ####[facility] ([facility])[address] [place] [address] ACTIVATED PARTIAL THROMBOPLASTIN TIME IN PPP BY COAGULATION ASSAY 98.9 Seconds High 25.0-35.0 [facility] Comment on above: Result Comment: Clin ical significance of the APTT is questionable in the presence of heparin. Performed By: #### L [id number] ####[facility] ([facility])[address] [place] [address] B-TYPE NATRIURETIC PEPTIDEon 08-17-2024 Natriuretic peptide B (Bld) [Mass/Vol] 75 pg/mL Normal 0-100 [facility] Comment on above: Performed By: #### L [id number] ####[facility] ([facility])[address] [place] [address] BASIC METABOLIC PANELon 07-22 Anion gap [Moles/Vol] 9 mmol/L Normal 7-20 [facility] Comment on above: Performed By: #### L [id number] ####[facility] ([facility])[address] [place] [address] Calcium [Mass/Vol] 8.8 mg/dL Normal 8.6-10.3 [facility] Comment on above: Performed By: #### L [id number] ####[facility] ([facility])[address] [place] [address] Chloride [Moles/Vol] 97 mmol/L Low 98-107 [facility] Comment on above: Performed By: #### L [id number] ####[facility] [place] [address] CO2 [Moles/Vol] 45 mmol/L Critically high 21-31 [facility] Comment on above: Performed By: #### L [id number] ####[facility] ([facility])[address] [place] [address] Creatinine [Mass/Vol] 0.93 mg/dL Normal 0.70-1.30 [facility] Comment on above: Performed By: #### L [id number] ####[facility] ([facility])[address] [place] [address] GLOMERULAR FILTRATION RATE ML/MIN/1.73 SQ M.PREDICTED 91.1 mL/min/1.73m*2 Normal >60.0 [facility] Comment on above: Result Comment: [facility]???s estimated glomerular filtration rate (eGFR) will no [...] By: #### L [id number] ####[facility] ([facility])[address] [place] [address] Glucose [Mass/Vol] 190 mg/dL High 70-100 [facility] Comment on above: Performed By: #### L [id number] ####[facility] [place] [address] Potassium [Moles/Vol] 3.5 mmol/L Normal 3.5-5.1 [facility] Comment on above: Performed By: #### L [id number] ####[facility] [place] [address] Sodium [Moles/Vol] 147 mmol/L High 136-145 [facility] Comment on above: Performed By: #### L [id number] ####[facility] ([facility])[address] [place] [address] Urea nitrogen [Mass/Vol] 28 mg/dL High 7-25 [facility] Comment on above: Performed By: #### L [id number] ####[facility] ([facility])[address] [place] [address] UREA NITROGEN/CREATININE (MASS RATIO) IN SER/PLAS 30.1 Normal [facility] Comment on above: Performed By: #### L [id number] ####[facility] ([facility])[address] [place] [address] CBC WITH AUTO DIFFERENTIALon 08-17-2024 Basophils (Bld) [#/Vol] 0.02 10*3/uL Normal 0.00-0.20 [facility] Comment on above: Performed By: #### L [id number] ####[facility] ([facility])[address] [place] [address] Basophils/100 WBC (Bld) 0.2 % Normal 0.0-1.0 [facility] Comment on above: Performed By: #### L [id number] ####[facility] ([facility])[address] [place] [address] Eosinophils (Bld) [#/Vol] 0.20 10*3/uL Normal 0.00-0.50 [facility] Comment on above: Performed By: #### L [id number] ####[facility] ([facility])[address] [place] [address] Eosinophils/100 WBC (Bld) 2.4 % Normal 0.0-6.0 [facility] Comment on above: Performed By: #### L [id number] ####[facility] ([facility])[address] [place] [address] Erythrocyte distribution width (RBC) [Ratio] 15.3 % High 11.5-15.0 [facility] Comment on above: Performed By: #### L [id number] ####[facility] (BEAKER)[address] [place] [address] ERYTHROCYTE MEAN CORPUSCULAR HEMOGLOBIN CONCENTRATION (G/DL) BY AUTOMATED 30.0 g/dL Low 32.0-35.0 [facility] Comment on above: Performed By: #### L [id number] ####[facility] ([facility]ER)[address] [place] [address] Hematocrit (Bld) [Volume fraction] 49.7 % Normal 39.0-55.0 [facility] Comment on above: Performed By: #### L [id number] ####[facility] ([facility]ER)[address] [place] [address] Hemoglobin (Bld) [Mass/Vol] 14.9 g/dL Normal 13.0-17.0 [facility] Comment on above: Performed By: #### L [id number] ####[facility] ([facility])[address] [place] [address] Immature granulocytes (Bld) [#/Vol] 0.04 10*3/uL Normal 0.00-0.20 [facility] Comment on above: Performed By: #### L [id number] ####[facility] (BE[facility]ER)[address] [place] [address] Immature granulocytes/100 WBC (Bld) 0.5 % Normal 0.0-1.0 [facility] Comment on above: Performed By: #### L [id number] ####[facility] ([facility])[address] [place] [address] Lymphocytes (Bld) [#/Vol] 0.87 10*3/uL Low 1.20-4.00 [facility] Comment on above: Performed By: #### L [id number] ####[facility] ([facility])[address] [place] [address] Lymphocytes/100 WBC (Bld) 10.5 % Low 20.0-45.0 [facility] Comment on above: Performed By: #### L [id number] ####[facility] ([facility]ER)[address] [place] [address] MCH (RBC) [Entitic mass] 29.0 pg Normal 27.0-33.0 [facility] Comment on above: Performed By: #### L [id number] ####[facility] ([facility])[address] [place] [address] MCV (RBC) [Entitic vol] 96.9 fL Normal 82.0-98.0 [facility] Comment on above: Performed By: #### L [id number] ####[facility] ([facility])[address] [place] [address] Monocytes (Bld) [#/Vol] 1.21 10*3/uL High 0.10-1.00 [facility] Comment on above: Performed By: #### L [id number] ####[facility] ([facility])[address] [place] [address] Monocytes/100 WBC (Bld) 14.6 % High 5.0-12.0 [facility] Comment on above: Performed By: #### L [id number] ####[facility] ([facility])[address] [place] [address] Neutrophils (Bld) [#/Vol] 5.97 10*3/uL Normal 1.60-7.60 [facility] Comment on above: Performed By: #### L [id number] ####[facility] ([facility])[address] [place] [address] Neutrophils/100 WBC (Bld) 71.8 % Normal 40.0-72.0 [facility] Comment on above: Performed By: #### L [id number] ####[facility] [place], [place] [address] NRBC (PER 100 WBCS) BY AUTOMATED COUNT 0.0 % Normal 0 [facility] Comment on above: Performed By: #### L [id number] ####[facility] ([facility])[address] [place] [address] PLATELETS (10*3/UL) IN BLOOD AUTOMATED COUNT 210 10*3/uL Normal 150-400 [facility] Comment on above: Performed By: #### L [id number] ####[facility] ([facility])[address] [place] [address] RBC (Bld) [#/Vol] 5.13 10*6/uL Normal 4.20-5.70 [facility] Comment on above: Performed By: #### L [id number] ####[facility] ([facility])[address] [place] [address] WBC (Bld) [#/Vol] 8.31 10*3/uL Normal 4.00-10.60 [facility] Comment on above: Performed By: #### L [id number] ####[facility] ([facility])[address] [place] [address] MAGNESIUMon 08-17-2024 Magnesium [Mass/Vol] 2.2 mg/dL Normal 1.9-2.7 [facility] Comment on above: Performed By: #### L [id number] ####[facility] ([facility])[address] [place] [address] Magnesium [Mass/Vol] 1.8 mg/dL Low 1.9-2.7 [facility] Comment on above: Performed By: #### L [id number] ####[facility] ([facility])[address] [place] [address] Magnesium [Mass/Vol] 1.6 mg/dL Low 1.9-2.7 [facility] Comment on above: Performed By: #### L [id number] ####[facility] ([facility])[address] [place] [address] PHOSPHORUSon 08-17-2024 Magnesium [Mass/Vol] 3.2 mg/dL Normal 2.5-5.0 [facility] Comment on above: Performed By: #### L [id number] ####[facility] [place] [address] POCT GLUCOSE METER UNSOLICIT ED RESULTSon 08-17-2024 Glucose [Mass/Vol] 184 mg/dL High 70-105 [facility] Comment on above: Order Comment: Waive d Testing in the ED is performed under the ED CLIA certificate #[id number]. Result Comment: umesh sheikh Performed By: #### L [id number] ####[facility] ([facility])[address] [address] Glucose [Mass/Vol] 191 mg/dL High 70-105 [facility] Comment on above: Order Comment: Waive d Testing in the ED is performed under the ED CLIA certificate #[id number]. Result Comment: [email or web address] [email or web address] Performed By: #### L [id number] ####[facility] ([facility])[address] [place] [address] POTASSIUMon 08-17-2024 Potassium [Moles/Vol] 3.8 mmol/L Normal 3.5-5.1 [facility] Comment on above: Performed By: #### L [id number] ####[facility] ([facility])[address] [place] [address] Potassium [Moles/Vol] 3.7 mmol/L Normal 3.5-5.1 [facility] Comment on above: Performed By: #### L [id number] ####[facility] ([facility])[address] [place] [address] PROTIME-INRon 08-17-2024 INR IN PPP BY COAGULATION ASSAY 1.19 High 0.90-1.10 [facility] Comment on above: Result Comment: ACCC P [...] By: #### L [id number] ####[facility] ([employer])[address] [facility] [place] [address] PROTHROMBIN TIME (PT) IN PPP BY COAGULATION ASSAY 15.0 Seconds High 12.3-14.8 [facility] Comment on above: Performed By: #### L [id number] ####[facility] ([employer])[address] [place] [address] INR IN PPP BY COAGULATION ASSAY 1.19 High 0.90-1.10 [facility] Comment on above: Result Comment: ACCC P [...] By: #### L [id number] ####[facility] [employer])[address] [place] [address] PROTHROMBIN TIME (PT) IN PPP BY COAGULATION ASSAY 15.1 Seconds High 12.3-14.8 [facility] Comment on above: Performed By: #### L [id number] ####[facility] ([facility])[address] [place] [address] TRIGLYCERIDESon 08-17-2024 FASTING? Unknown Normal [facility] Comment on above: Performed By: #### L [id number] ####[facility] ([facility])[address] [place] [address] Magnesium [Mass/Vol] 119 mg/dL Normal 40-149 [facility] Comment on above: Result Comment: TRIG LYCERIDE REFERENCE RANGE:20 YEARS AND OLDER CARDIOVASCULAR RISKLESS THAN 150 mg/dL LOW AISH392 TO 199 mg/dL BORDERLINE [id number] mg/dL AND GREATER HIGH RISK Performed By: #### L [id number] ####[facility] ([facility])[address] [place] [address] TROPONIN Ion 08-17-2024 Troponin I.cardiac [Mass/Vol] 0.04 ng/mL Normal 0.00-0.04 [facility] Comment on above: Performed By: #### L [id number] ####[facility] ([facility])[address] [place] [address] Troponin I.cardiac [Mass/Vol] 0.04 ng/mL Normal 0.00-0.04 [facility] Comment on above: Performed By: #### L [id number] ####[facility] ([facility])[address] [place] [address] VANCOMYCIN, TROUGHon 025 VANCOMYCIN (UG/ML) IN SER/PLAS - TROUGH 23.6 ug/mL Critically high 5.0-20.0 [facility] Comment on above: Performed By: #### L [id number] ####[facility] ([facility])[address] [place] [address] BASIC METABOLIC PANELon 07-22 Anion gap [Moles/Vol] 11 mmol/L Normal 7-20 [facility] Comment on above: Performed By: #### L [id number] ####[facility] ([facility])[address] [place] [address] Calcium [Mass/Vol] 8.9 mg/dL Normal 8.6-10.3 [facility] Comment on above: Performed By: #### L [id number] ####[facility] [place] [address] Chloride [Moles/Vol] 99 mmol/L Normal 98-107 [facility] Comment on above: Performed By: #### L [id number] ####[facility] [place] [address] CO2 [Moles/Vol] 38 mmol/L High 21-[address] [facility] Comment on above: Performed By: #### L [id number] ####[facility] ([facility] [place] [address] Creatinine [Mass/Vol] 1.10 mg/dL Normal 0.70-1.30 [facility] Comment on above: Performed By: #### L [id number] ####[facility] ([facility])[address] [place] [address] GLOMERULAR FILTRATION RATE ML/MIN/1.73 SQ M.PREDICTED 74.5 mL/min/1.73m*2 Normal >60.0 [facility] Comment on above: Result Comment: [facility]???s estimated glomerular filtration rate (eGFR) will no [...] By: #### L [id number] ####[facility] ([facility])[address] [place] [address] Glucose [Mass/Vol] 202 mg/dL High 70-100 [facility] Comment on above: Performed By: #### L [id number] ####[facility] ([facility])[address] [place] [address] Potassium [Moles/Vol] 3.3 mmol/L Low 3.5-5.1 [facility] Comment on above: Performed By: #### L [id number] ####[facility] ([facility])[address] [place] [address] Sodium [Moles/Vol] 145 mmol/L Normal 136-145 [facility] Comment on above: Performed By: #### L [id number] ####[facility] ([facility])[address] [place] [address] Urea nitrogen [Mass/Vol] 38 mg/dL High 7-25 [facility] Comment on above: Performed By: #### L [id number] ####[facility] ([facility])[address] [place] [address] UREA NITROGEN/CREATININE (MASS RATIO) IN SER/PLAS 34.5 Normal [facility] Comment on above: Performed By: #### L [id number] ####[facility] ([facility])[address] [place] [address] CALCIUM, IONIZEDon CALCIUM IONIZED (MMOL/L) IN BLOOD Normal [facility] Comment on above: Result Comment: C^In calculable Performed By: #### C ALCIUM, IONIZED ####[facility] RESPIRATORY [id number] [place] [address] [place] CBC WITH AUTO DIFFERENTIALon 08-16-2024 Erythrocyte distribution width (RBC) [Ratio] 15.1 % High 11.5-15.0 [facility] Comment on above: Performed By: #### L [id number] ####[facility] [place] [address] ERYTHROCYTE MEAN CORPUSCULAR HEMOGLOBIN CONCENTRATION (G/DL) BY AUTOMATED 30.9 g/dL Low 32.0-35.0 [facility] Comment on above: Performed By: #### L [id number] ####[facility] [place] [address] Hematocrit (Bld) [Volume fraction] 52.1 % Normal 39.0-55.0 [facility] Comment on above: Performed By: #### L [id number] ####[facility] ([facility])[address] [place] [address] Hemoglobin (Bld) [Mass/Vol] 16.1 g/dL Normal 13.0-17.0 [facility] Comment on above: Performed By: #### L [id number] ####[facility] ([facility])[address] [place] [address] MCH (RBC) [Entitic mass] 29.4 pg Normal 27.0-33.0 [facility] Comment on above: Performed By: #### L [id number] ####[facility] ([facility])[address] [place] [address] MCV (RBC) [Entitic vol] 95.1 fL Normal 82.0-98.0 [facility] Comment on above: Performed By: #### L [id number] ####[facility] ([facility])[address] [place] [address] NRBC (PER 100 WBCS) BY AUTOMATED COUNT 0.0 % Normal 0 [facility] Comment on above: Performed By: #### L [id number] ####[facility] ([facility])[address] [place] [address] PLATELETS (10*3/UL) IN BLOOD AUTOMATED COUNT 243 10*3/uL Normal 150-400 [facility] Comment on above: Performed By: #### L [id number] ####[facility] ([facility])[address] [place] [address] RBC (Bld) [#/Vol] 5.48 10*6/uL Normal 4.20-5.70 [facility] Comment on above: Performed By: #### L [id number] ####[facility] ([facility])[address] [place] [address] WBC (Bld) [#/Vol] 9.57 10*3/uL Normal 4.00-10.60 [facility] Comment on above: Performed By: #### L [id number] ####[facility] ([facility])[address] [place] [address] CONSULTon 08-16-2024 CONSULT Normal [facility] CONSULT Normal [facility] CTA CHEST W IV CONTRASTon CTA CHEST W IV CONTRAST Invalid Interpretation Code [facility] MAGNESIUMon 08-16-2024 Magnesium [Mass/Vol] 1.9 mg/dL Normal 1.9-2.7 [facility] Comment on above: Performed By: #### L [id number] ####[facility] ([facility])[address] [place] [address] Magnesium [Mass/Vol] 1.7 mg/dL Low 1.9-2.7 [facility] Comment on above: Performed By: #### L [id number] ####[facility] ([facility])[address] [place] [address] MANUAL DIFFERENTIALon 2024 BASOPHILS (10*3/UL) IN BLOOD BY CALCULATION 0.02 10*3/uL Normal 0.00-0.20 [facility] Comment on above: Performed By: #### L [id number] ####[facility] ([facility])[address] [place] [address] BASOPHILS/100 LEUKOCYTES IN BLOOD BY AUTOMATED COUNT 0.2 % Normal 0.0-1.0 [facility] Comment on above: Performed By: #### L [id number] ####[facility] ([facility])[address] [place] [address] EOSINOPHILS (10*3/UL) IN BLOOD BY CALCULATION 0.10 10*3/uL Normal 0.00-0.50 [facility] Comment on above: Performed By: #### L [id number] ####[facility] ([facility])[address] [place] [address] EOSINOPHILS/100 LEUKOCYTES IN BLOOD BY AUTOMATED COUNT 1.0 % Normal 0.0-6.0 [facility] Comment on above: Performed By: #### L [id number] ####[facility] ([facility])[address] [place] [address] IMMATURE GRANULOCYTES (10*3/UL) IN BLOOD BY CALCULATION 0.06 10*3/uL Normal 0.00-0.20 [facility] Comment on above: Performed By: #### L [id number] ####[facility] ([facility])[address] [place] [address] IMMATURE GRANULOCYTES/100 LEUKOCYTES IN BLOOD BY AUTOMATED COUNT 0.6 % Normal 0.0-1.0 [facility] Comment on above: Performed By: #### L [id number] ####[facility] ([facility])[address] [place] [address] LYMPHOCYTES (10*3/UL) IN BLOOD BY CALCULATION 0.73 10*3/uL Low 1.20-4.00 [facility] Comment on above: Performed By: #### L [id number] ####[facility] ([facility])[address] [place] [address] LYMPHOCYTES/100 LEUKOCYTES IN BLOOD BY AUTOMATED COUNT 7.6 % Low 20.0-45.0 [facility] Comment on above: Performed By: #### L [id number] ####[facility] ([facility])[address] [place] [address] MONOCYTES (10*3/UL) IN BLOOD BY CALCUATION 1.52 10*3/uL High 0.10-1.00 [facility] Comment on above: Performed By: #### L [id number] ####[facility] ([facility])[address] [place] [address] MONOCYTES/100 LEUKOCYTES IN BLOOD BY AUTOMATED COUNT 15.9 % High 5.0-12.0 [facility] Comment on above: Performed By: #### L [id number] ####[facility] ([facility])[address] [place] [address] NEUTROPHILS (10*3/UL) IN BLOOD BY CALCULATION 7.1 10*3/uL Normal 1.6-7.6 [facility] Comment on above: Performed By: #### L [id number] ####[facility] ([facility])[address] [place] [address] NEUTROPHILS/100 LEUKOCYTES IN BLOOD BY AUTOMATED COUNT 74.7 % High 40.0-72.0 [facility] Comment on above: Performed By: #### L [id number] ####[facility] ([facility])[address] [place] [address] PHOSPHORUSon 08-16-2024 Magnesium [Mass/Vol] 3.8 mg/dL Normal 2.5-5.0 [facility] Comment on above: Performed By: #### L [id number] ####[facility] ([facility])[address] [place] [address] Magnesium [Mass/Vol] 1.8 mg/dL Low 2.5-5.0 [facility] Comment on above: Performed By: #### L [id number] ####[facility] ([facility])[address] [place] [address] POCT GLUCOSE METER UNSOLICIT ED RESULTSon 08-16-2024 Glucose [Mass/Vol] 189 mg/dL High 70-105 [facility] Comment on above: Order Comment: Waive d Testing in the ED is performed under the ED CLIA certificate #[id number]. Result Comment: ljon es Performed By: #### L [id number] ####[facility] ([facility])[address] [place] [address] Glucose [Mass/Vol] 205 mg/dL High 70-105 [facility] Comment on above: Order Comment: Waive d Testing in the ED is performed under the ED CLIA certificate #[id number]. Result Comment: rgil l Performed By: #### L [id number] ####[facility] ([facility])[address] [place] [address] Glucose [Mass/Vol] 200 mg/dL High 70-105 [facility] Comment on above: Order Comment: Waive d Testing in the ED is performed under the ED CLIA certificate #[id number]. Result Comment: [email or web address] [email or web address] Performed By: #### L [id number] ####[facility] ([facility])[address] [place] [address] Glucose [Mass/Vol] 207 mg/dL High 70-105 [facility] Comment on above: Order Comment: Waive d Testing in the ED is performed under the ED CLIA certificate #[id number]. Result Comment: oyod er Performed By: #### L [id number] ####[facility] ([facility])[address] [place] [address] POTASSIUMon 08-16-2024 Potassium [Moles/Vol] 3.3 mmol/L Low 3.5-5.1 [facility] Comment on above: Performed By: #### L [id number] ####[facility] ([facility])[address] [place] [address] Potassium [Moles/Vol] 3.5 mmol/L Normal 3.5-5.1 [facility] Comment on above: Performed By: #### L [id number] ####[facility] ([facility])[address] [place] [address] POTASSIUM, WHOLE BLOODon Potassium [Moles/Vol] 3.5 mmol/L Normal 3.5-5.1 [facility] Comment on above: Performed By: #### P OTASSIUM, WHOLE BLOOD ####[facility] RESPIRAT[facility] [id number] [place] [address] [place] SODIUM, WHOLE BLOODon 2024 SODIUM, WHOLE BLOOD Normal [facility] Comment on above: Result Comment: C^In calculable Performed By: #### S ODIUM, WHOLE BLOOD ####[facility] RESPIRATORY [id number] [place] [address] [place] TRIGLYCERIDESon 08-16-2024 FASTING? Unknown Normal [facility] Comment on above: Performed By: #### L [id number] ####[facility] ([facility])[address] [place] [address] Magnesium [Mass/Vol] 243 mg/dL High 40-149 [facility] Comment on above: Result Comment: TRIG LYCERIDE REFERENCE RANGE:20 YEARS AND OLDER CARDIOVASCULAR RISKLESS THAN 150 mg/dL LOW [id number] TO 199 mg/dL BORDERLINE [id number] mg/dL AND GREATER HIGH RISK Performed By: #### L [id number] ####[facility] ([facility])[address] [place] [address] 30on 08-15-2024 30 Normal [facility] 30 Normal [facility] BLOOD CULTUREon 08-15-2024 Bacteria identified Cx Nom (Bld) No growth at 5 days Normal [facility] Comment on above: Order Comment: From a different site than #1. Performed By: #### L [id number] ####[facility] ([facility])[address] [place] [address] Basophils Auto (Bld) [#/Vol] on 08-15-2024 Basophils (Bld) [#/Vol] Automated basophil count 0.0-0.1 [facility] Basophils/100 WBC Auto (Bld) on 08-15-2024 Basophils/100 WBC (Bld) Automated basophil % Low 0.2-2.0 [facility] CALCIUM, IONIZEDon CALCIUM IONIZED (MMOL/L) IN BLOOD 1.23 mmol/L Normal 1.15-1.33 [facility] Comment on above: Performed By: #### C ALCIUM, IONIZED ####[facility] RESPIRATORY [id number] [place] [address] [place] CBC WITH AUTO DIFFERENTIALon 08-15-2024 Basophils (Bld) [#/Vol] 0.01 10*3/uL Normal 0.00-0.20 [facility] Comment on above: Performed By: #### L [id number] ####[facility] (BE[facility])[address] [place] [address] Basophils/100 WBC (Bld) 0.1 % Normal 0.0-1.0 [facility] Comment on above: Performed By: #### L [id number] ####[facility] (BE[facility]ER)[address] [place] [address] Eosinophils (Bld) [#/Vol] 0.01 10*3/uL Normal 0.00-0.50 [facility] Comment on above: Performed By: #### L [id number] ####[facility] [place] [address] Eosinophils/100 WBC (Bld) 0.1 % Normal 0.0-6.0 [facility] Comment on above: Performed By: #### L [id number] ####[facility] ([facility])[address] [place] [address] Erythrocyte distribution width (RBC) [Ratio] 15.2 % High 11.5-15.0 [facility] Comment on above: Performed By: #### L [id number] ####[facility] [place] [address] ERYTHROCYTE MEAN CORPUSCULAR HEMOGLOBIN CONCENTRATION (G/DL) BY AUTOMATED 33.8 g/dL Normal 32.0-35.0 [facility] Comment on above: Performed By: #### L [id number] ####[facility] [place] [address] Hematocrit (Bld) [Volume fraction] 47.1 % Normal 39.0-55.0 [facility] Comment on above: Performed By: #### L [id number] ####[facility] (BE[facility]ER)[address] [place] [address] Hemoglobin (Bld) [Mass/Vol] 15.9 g/dL Normal 13.0-17.0 [facility] Comment on above: Performed By: #### L [id number] ####[facility] (BE[facility]ER)[address] [place] [address] Immature granulocytes (Bld) [#/Vol] 0.05 10*3/uL Normal 0.00-0.20 [facility] Comment on above: Performed By: #### L [id number] ####[facility] ([facility])[address] [place] [address] Immature granulocytes/100 WBC (Bld) 0.7 % Normal 0.0-1.0 [facility] Comment on above: Performed By: #### L [id number] ####[facility] ([facility])[address] [place] [address] Lymphocytes (Bld) [#/Vol] 0.54 10*3/uL Low 1.20-4.00 [facility] Comment on above: Performed By: #### L [id number] ####[facility] ([facility])[address] [place] [address] Lymphocytes/100 WBC (Bld) 7.2 % Low 20.0-45.0 [facility] Comment on above: Performed By: #### L [id number] ####[facility] ([facility])[address] [place] [address] MCH (RBC) [Entitic mass] 31.8 pg Normal 27.0-33.0 [facility] Comment on above: Performed By: #### L [id number] ####[facility] ([facility])[address] [place] [address] MCV (RBC) [Entitic vol] 94.2 fL Normal 82.0-98.0 [facility] Comment on above: Performed By: #### L [id number] ####[facility] [address] Monocytes (Bld) [#/Vol] 1.23 10*3/uL High 0.10-1.00 [facility] Comment on above: Performed By: #### L [id number] ####[facility] [place] [address] Monocytes/100 WBC (Bld) 16.3 % High 5.0-12.0 [facility] Comment on above: Performed By: #### L [id number] ####[facility] ([facility])[address] [place] [address] Neutrophils (Bld) [#/Vol] 5.70 10*3/uL Normal 1.60-7.60 [facility] Comment on above: Performed By: #### L [id number] ####[facility] (BE[facility]ER)[address] [place] [address] Neutrophils/100 WBC (Bld) 75.6 % High 40.0-72.0 [facility] Comment on above: Performed By: #### L [id number] ####[facility] ([facility]ER)[address] [place] [address] NRBC (PER 100 WBCS) BY AUTOMATED COUNT 0.3 % High 0 [facility] Comment on above: Performed By: #### L [id number] ####[facility] ([facility])[address] [place] [address] PLATELETS (10*3/UL) IN BLOOD AUTOMATED COUNT 237 10*3/uL Normal 150-400 [facility] Comment on above: Performed By: #### L [id number] ####[facility] (BEAKER)[address] [place], [place] [address] RBC (Bld) [#/Vol] 5.00 10*6/uL Normal 4.20-5.70 [facility] Comment on above: Performed By: #### L [id number] ####[facility] (BEAKER)[address] [place], [place] [address] WBC (Bld) [#/Vol] 7.54 10*3/uL Normal 4.00-10.60 [facility] Comment on above: Performed By: #### L [id number] ####[facility] (BE[facility]ER)[address] [place] [address] COMPREHENSIVE METABOLIC PANE Kris 08-15-2024 Albumin [Mass/Vol] 2.9 g/dL Low 3.5-5.7 [facility] Comment on above: Performed By: #### L [id number] ####[facility] (BE[facility]ER)[address] [place] [address] ALP [Catalytic activity/Vol] 58 U/L Normal 34-104 [facility] Comment on above: Performed By: #### L [id number] ####[facility] [place] [address] ALT [Catalytic activity/Vol] 21 U/L Normal 7-52 [facility] Comment on above: Performed By: #### L [id number] ####[facility] ([facility])[address] [place] [address] Anion gap [Moles/Vol] 13 mmol/L Normal 7-20 [facility] Comment on above: Performed By: #### L [id number] ####[facility] ([facility])[address] [place] [address] AST [Catalytic activity/Vol] 29 U/L Normal 13-39 [facility] Comment on above: Performed By: #### L [id number] ####[facility] ([facility])[address] [place] [address] Bilirubin [Mass/Vol] 1.0 mg/dL Normal 0.3-1.0 [facility] Comment on above: Performed By: #### L [id number] ####[facility] ([facility])[address] [place] [address] Calcium [Mass/Vol] 8.2 mg/dL Low 8.6-10.3 [facility] Comment on above: Performed By: #### L [id number] ####[facility] [place] [address] Chloride [Moles/Vol] 90 mmol/L Low 98-107 [facility] Comment on above: Performed By: #### L [id number] ####[facility] (BEAKER)[address] [place] [address] CO2 [Moles/Vol] 32 mmol/L High 21-[address] [facility] Comment on above: Performed By: #### L [id number] ####[facility] ([facility])[address] [place] [address] Creatinine [Mass/Vol] 1.17 mg/dL Normal 0.70-1.30 [facility] Comment on above: Performed By: #### L [id number] ####[facility] ([facility])[address] [place] [address] GLOMERULAR FILTRATION RATE ML/MIN/1.73 SQ M.PREDICTED 69.2 mL/min/1.73m*2 Normal >60.0 [facility] Comment on above: Result Comment: [facility]???s estimated glomerular filtration rate (eGFR) will no [...] By: #### L [id number] ####[facility] ([facility])[address] [place] [address] Glucose [Mass/Vol] 219 mg/dL High 70-100 [facility] Comment on above: Performed By: #### L [id number] ####[facility] ([facility])[address] [place] [address] Potassium [Moles/Vol] 4.0 mmol/L Normal 3.5-5.1 [facility] Comment on above: Performed By: #### L [id number] ####[facility] ([facility])[address] [place] [address] Protein [Mass/Vol] 5.5 g/dL Low 6.0-8.3 [facility] Comment on above: Performed By: #### L [id number] ####[facility] ([facility])[address] [place] [address] Sodium [Moles/Vol] 131 mmol/L Low 136-145 [facility] Comment on above: Performed By: #### L [id number] ####[facility] (BEAKER)[address] [place] [address] Urea nitrogen [Mass/Vol] 42 mg/dL High 7-25 [facility] Comment on above: Performed By: #### L [id number] ####[facility] (BEAKER)[address] [place] [address] UREA NITROGEN/CREATININE (MASS RATIO) IN SER/PLAS 35.9 Normal [facility] Comment on above: Performed By: #### L [id number] ####[facility] (BEAKER)[address] [place] [address] Eosinophils/100 WBC Auto (Bl d)on 08-15-2024 Eosinophils/100 WBC (Bld) Automated eosinophil % Low 0.9-7.0 [facility] Erythrocyte distribution wid th Auto (RBC) [Ratio]on 08-15-2024 Erythrocyte distribution width (RBC) [Ratio] Erythrocyte distribution width [Ratio] by Automated count High 11.0-15.0 [facility] Estimated glomerular filtrat ion rate (GFR) non- Americanon 08-15-2024 GFR/1.73 sq M.predicted among non-blacks MDRD (S/P/Bld) [Vol rate/Area] Estimated glomerular filtration rate (GFR) non- Low >=60 mL/min/1.73m 2 [facility] Globulin Calc (S) [Mass/Vol] on 08-15-2024 Globulin (S) [Mass/Vol] Serum globulin measurement by calculation (mass/volume) [facility] HEMOGLOBIN A1Con 08-15-2024 Glucose [Mass/Vol] 189 mg/dL Normal [facility] Comment on above: Performed By: #### L [id number] ####[facility] (BEAKER)[address] [place] [address] HbA1c (Bld) [Mass fraction] 8.2 % High 4.0-6.0 [facility] Comment on above: Performed By: #### L [id number] ####[facility] (BEAKER)[address] [place] [address] HPon 08-15-2024 HP Normal [facility] Hematocrit Auto (Bld) [Volum e fraction]on 08-15-2024 Hematocrit (Bld) [Volume fraction] Hematocrit [Volume Fraction] of Blood by Automated count 42.0-54.0 [facility] Hemoglobin [Mass/volume] in Bloodon 08-15-2024 Hemoglobin (Bld) [Mass/Vol] Hemoglobin [Mass/volume] in Blood 14.0-18.0 [facility] LIPASEon 08-15-2024 LIPASE (U/L) IN SER/PLAS 28 U/L Normal 11-82 [facility] Comment on above: Result Comment: M-CH EMISTRY SPECIMEN MODERATELY HEMOLYZED RESULTS MAY NOT BE ACCURATE Performed By: #### L [id number] ####[facility] (BEAKER)[address] [place] [address] Laboratory - Chemistry and C hemistry - challengeon 08-15-2024 HCO3 (Bld) [Moles/Vol] 34.7 mmol/L High 22.0-26.0 [facility] Albumin [Mass/Vol] 2.6 g/dL Low 3.4-5.0 [facility] ALP [Catalytic activity/Vol] 81 U/L 46-116 [facility] ALT [Catalytic activity/Vol] 37 U/L 16-63 [facility] AST [Catalytic activity/Vol] 28 U/L 15-37 [facility] Bilirubin [Mass/Vol] 1.2 mg/dL High 0.2-1.0 [facility] Calcium [Mass/Vol] 9.2 mg/dL 8.5-10.1 [facility] Chloride [Moles/Vol] 101 mmol/L 98-107 [facility] CO2 [Moles/Vol] 35.4 mmol/L High 21.0-32.0 [facility] Creatinine [Mass/Vol] 1.66 mg/dL High 0.70-1.30 [facility] GFR/1.73 sq M.predicted MDRD (S/P/Bld) [Vol rate/Area] 51 mL/min/{1.73_m2} Low >=60 mL/min/1.73m 2 [facility] Glucose [Mass/Vol] 268 mg/dL High 74-106 [facility] Potassium [Moles/Vol] 3.8 mmol/L 3.5-5.1 [facility] Protein [Mass/Vol] 6.3 g/dL Low 6.4-8.2 [facility] Sodium [Moles/Vol] 143 mmol/L 136-145 [facility] Urea nitrogen [Mass/Vol] 52.0 mg/dL High 7.0-18.0 [facility] Urea nitrogen/Creatinine [Mass ratio] 31.3 mg/mg [facility] Laboratory - Hematology and Cell countson 08-15-2024 Immature granulocytes/100 WBC (Bld) 0.8 % High 0.0-0.5 [facility] Leukocytes [#/volume] correc beatris for nucleated erythrocytes in Blood by Automated counon 08-15-2024 WBC corrected for nucl RBC Auto (Bld) [#/Vol] Leukocytes [#/volume] corrected for nucleated erythrocytes in Blood by Automated coun 4.0-11.0 [facility] Lymphocytes Auto (Bld) [#/Vo l]on 08-15-2024 Lymphocytes (Bld) [#/Vol] Lymphocytes [#/volume] in Blood by Automated count Low 1.2-3.8 [facility] Lymphocytes/100 WBC Auto (Bl d)on 08-15-2024 Lymphocytes/100 WBC (Bld) Lymphocytes/100 leukocytes in Blood by Automated count Low 20.5-60.0 [facility] MAGNESIUMon 08-15-2024 Magnesium [Mass/Vol] 1.6 mg/dL Low 1.9-2.7 [facility] Comment on above: Performed By: #### L [id number] ####[facility] (BEAKER)[address] [place] [address] MCH Auto (RBC) [Entitic mass ]on 08-15-2024 MCH (RBC) [Entitic mass] MCH [Entitic mass] by Automated count 25.9-34.0 [facility] MCHC Auto (RBC) [Mass/Vol]on 08-15-2024 MCHC (RBC) [Mass/Vol] MCHC [Mass/volume] by Automated count 29.9-35.2 [facility] MCV Auto (RBC) [Entitic vol] on 08-15-2024 MCV (RBC) [Entitic vol] MCV [Entitic volume] by Automated count 80.0-94.0 [facility] MRSA/MSSA DNA NASALon 2024 MRSA DNA Negative Normal Negative [facility] Comment on above: Order Comment: Testi ng [...] preclude nasal colonization. Performed By: #### L [id number] ####[facility] (BEAKER)[address] [place] [address] MSSA DNA Negative Normal Negative [facility] Comment on above: Order Comment: Testi ng [...] preclude nasal colonization. Performed By: #### L [id number] ####[facility] (BEAKER)[address] [place] [address] Monocytes Auto (Bld) [#/Vol] on 08-15-2024 Monocytes (Bld) [#/Vol] Automated blood monocyte count 0.3-0.8 [facility] Monocytes/100 WBC Auto (Bld) on 08-15-2024 Monocytes/100 WBC (Bld) Automated monocyte % 1.7-12.0 [facility] Neutrophils Auto (Bld) [#/Vo l]on 08-15-2024 Neutrophils (Bld) [#/Vol] Neutrophils [#/volume] in Blood by Automated count 1.4-6.5 [facility] Neutrophils/100 WBC Auto (Bl d)on 08-15-2024 Neutrophils/100 WBC (Bld) Automated neutrophil % High 43.0-75.0 [facility] No Panel Informationon 08-15 Avinash Test Positive POSITIVE [facility] Arterial Blood Base Excess 11.0 mmol/L High <2.0-2.0 [facility] Arterial Blood Oxygen Saturation 97.0 % [facility] Arterial Blood Partial Pressure CO2 47.8 mm[Hg] High 35.0-45.0 [facility] Arterial Blood Partial Pressure O2 81.0 mm[Hg] 80.0-100.0 [facility] Arterial Blood pH 7.469 High 7.350-7.450 [facility] Blood Gas PEEP 8 [facility] Blood Gas Sample Site RIGHT RADIAL F [facility] Blood Gas Set Respiration Rate 22 [facility] Blood Gas Tidal Volume 600 Fi [facility] Blood Gas Ventilator Mode AC/VC [facility] FiO2 90 % [facility] Oxygen Delivery Device VENT Fi [facility] Reference Lab Test #2 Result 13.8 [facility] Eosinophils # (Auto) 0.0 10 3/uL 0.0-0.7 [facility] Immature Granulocyte # (Auto) 0.06 10 3/uL High 0.00-0.03 [facility] PHOSPHORUSon 08-15-2024 Magnesium [Mass/Vol] 2.7 mg/dL Normal 2.5-5.0 [facility] Comment on above: Performed By: #### L [id number] ####[facility] (BEAKER)[address] [place] [address] POCT GLUCOSE METER UNSOLICIT ED RESULTSon 08-15-2024 Glucose [Mass/Vol] 249 mg/dL High 70-105 [facility] Comment on above: Order Comment: Waive d Testing in the ED is performed under the ED CLIA certificate #[id number]. Result Comment: oyod er Performed By: #### L [id number] ####[facility] (BEAKER)[address] [facility] [place] [address] Glucose [Mass/Vol] 217 mg/dL High 70-105 [facility] Comment on above: Order Comment: Waive d Testing in the ED is performed under the ED CLIA certificate #[id number]. Result Comment: bmen [email or web address] Performed By: #### L [id number] ####[facility] (BEAKER)[address] [place] [address] Glucose [Mass/Vol] 233 mg/dL High 70-105 [facility] Comment on above: Order Comment: Waive d Testing in the ED is performed under the ED CLIA certificate #[id number]. Result Comment: bmen [email or web address] Performed By: #### L [id number] ####[facility] (BEAKER)[address] [place] [address] POTASSIUM, WHOLE BLOODon Potassium [Moles/Vol] 3.4 mmol/L Low 3.5-5.1 [facility] Comment on above: Performed By: #### P OTASSIUM, WHOLE BLOOD ####[facility] [id number] [place] [address] [facility] Platelet mean volume Auto (B ld) [Entitic vol]on 08-15-2024 Platelet mean volume (Bld) [Entitic vol] Platelet mean volume [Entitic volume] in Blood by Automated count 9.5-13.5 [facility] Platelets Auto (Bld) [#/Vol] on 08-15-2024 Platelets (Bld) [#/Vol] Platelets [#/volume] in Blood by Automated count 150-450 [facility] RBC Auto (Bld) [#/Vol]on RBC (Bld) [#/Vol] Erythrocytes [#/volume] in Blood by Automated count 4.70-6.10 [facility] SODIUM, WHOLE BLOODon 2024 SODIUM, WHOLE BLOOD 136 Normal 136-145 [facility] Comment on above: Performed By: #### S ODIUM, WHOLE BLOOD ####[facility] [id number] [place] [address] [facility] Serum or plasma albumin/glob ulin mass ratioon 08-15-2024 Albumin/Globulin [Mass ratio] Serum or plasma albumin/globulin mass ratio [facility] Serum or plasma anion gap de terminationon 08-15-2024 Anion gap [Moles/Vol] Serum or plasma an ion gap determination [facility] TRIGLYCERIDESon 08-15-2024 FASTING? unknown Normal [facility] Comment on above: Order Comment: Monit or triglycerides while patient is on propofol. Consult Nutrition if greater than 500 mg/dL. Performed By: #### L [id number] ####[facility] ([facility])[address] [place] [address] Magnesium [Mass/Vol] 3920 mg/dL High 40-149 [facility] Comment on above: Order Comment: Monit or triglycerides while patient is on propofol. Consult Nutrition if greater than 500 mg/dL. Result Comment: TRIG LYCERIDE REFERENCE RANGE:20 YEARS AND OLDER CARDIOVASCULAR RISKLESS THAN 150 mg/dL LOW [id number] TO 199 mg/dL BORDERLINE [id number] mg/dL AND GREATER HIGH RISK Performed By: #### L [id number] ####[facility] ([facility])[address] [place] [address] TROPONIN Ion 08-15-2024 Troponin I.cardiac [Mass/Vol] 0.04 ng/mL Normal 0.00-0.04 [facility] Comment on above: Performed By: #### L [id number] ####[facility] ([facility])[address] [place] [address] URINALYSIS WITH MICROSCOPICo n 08-15-2024 BILIRUBIN, TOTAL PRESENCE IN URINE Negative Normal Negative [facility] Comment on above: Performed By: #### L [id number] ####[facility] ([facility])[address] [place] [address] Clarity (U) Clear Normal Clear [facility] Comment on above: Performed By: #### L [id number] ####[facility] ([facility])[address] [place] [address] Color (U) Colorless Normal Colorless, Yellow, Light-Yellow [facility] Comment on above: Performed By: #### L [id number] ####[facility] (BEAKER)[address] [place] [address] GLUCOSE (MG/DL) IN URINE Normal Normal Normal [facility] Comment on above: Performed By: #### L [id number] ####[facility] (BEAKER)[address] [place] [address] HEMOGLOBIN PRESENCE IN URINE Small Abnormal Negative [facility] Comment on above: Performed By: #### L [id number] ####[facility] (BEAKER)[address] [place] [address] Ketones Ql (U) Negative Normal Negative [facility] Comment on above: Performed By: #### L [id number] ####[facility] ([facility])[address] [place] [address] LEUKOCYTE ESTERASE PRESENCE IN URINE BY TEST STRIP Negative Normal Negative [facility] Comment on above: Performed By: #### L [id number] ####[facility] ([facility])[address] [place] [address] MUCUS (#/LPF) IN URINE SEDIMENT Occasional Normal None Seen, Occasional, Few [facility] Comment on above: Performed By: #### L [id number] ####[facility] (BEAKER)[address] [place] [address] NITRITE PRESENCE IN URINE Negative Normal Negative [facility] Comment on above: Performed By: #### L [id number] ####[facility] (BEAKER)[address] [place] [address] pH (U) 5.5 [pH] Normal 5.0-8.0 [facility] Comment on above: Performed By: #### L [id number] ####[facility] (BEAKER)[address] [place] [address] Protein (U) [Mass/Vol] Negative Normal Negative [facility] Comment on above: Performed By: #### L [id number] ####[facility] (BEAKER)[address] [place] [address] RBC (#/HPF) IN URINE SEDIMENT 11-20 Abnormal None Seen, 0-2 [facility] Comment on above: Performed By: #### L [id number] ####[facility] (BEAKER)[address] [place] [address] Specific gravity (U) [Rel density] 1.011 Normal 1.010-1.030 [facility] Comment on above: Performed By: #### L [id number] ####[facility] [place] [address] SQUAMOUS EPITHELIAL CELLS (#/LPF) IN URINE SEDIMENT None Seen Normal None Seen, Occasional, Few [facility] Comment on above: Performed By: #### L [id number] ####[facility] (BEAKER)[address] [place] [address] UROBILINOGEN (MG/DL) IN URINE Normal Normal Normal [facility] Comment on above: Performed By: #### L [id number] ####[facility] ([facility])[address] [place] [address] WBC (LEUKOCYTE) (#/HPF) IN URINE SEDIMENT 3-5 Abnormal None Seen, 0-2 [facility] Comment on above: Performed By: #### L [id number] ####[facility] [place] [address] Basophils Auto (Bld) [#/Vol] on 08-14-2024 Basophils (Bld) [#/Vol] Automated basophil count 0.0-0.1 [facility] Basophils/100 WBC Auto (Bld) on 08-14-2024 Basophils/100 WBC (Bld) Automated basophil % 0.2-2.0 [facility] Eosinophils/100 WBC Auto (Bl d)on 08-14-2024 Eosinophils/100 WBC (Bld) Automated eosinophil % Low 0.9-7.0 [facility] Erythrocyte distribution wid th Auto (RBC) [Ratio]on 08-14-2024 Erythrocyte distribution width (RBC) [Ratio] Erythrocyte distribution width [Ratio] by Automated count High 11.0-15.0 [facility] Estimated glomerular filtrat ion rate (GFR) non- Americanon 08-14-2024 GFR/1.73 sq M.predicted among non-blacks MDRD (S/P/Bld) [Vol rate/Area] Estimated glomerular filtration rate (GFR) non- Low >=60 mL/min/1.73m 2 [facility] Globulin Calc (S) [Mass/Vol] on 08-14-2024 Globulin (S) [Mass/Vol] Serum globulin measurement by calculation (mass/volume) [facility] Hematocrit Auto (Bld) [Volum e fraction]on 08-14-2024 Hematocrit (Bld) [Volume fraction] Hematocrit [Volume Fraction] of Blood by Automated count 42.0-54.0 [facility] Hemoglobin [Mass/volume] in Bloodon 08-14-2024 Hemoglobin (Bld) [Mass/Vol] Hemoglobin [Mass/volume] in Blood 14.0-18.0 [facility] Laboratory - Chemistry and C hemistry - challengeon 08-14-2024 HCO3 (Bld) [Moles/Vol] 30.8 mmol/L High 22.0-26.0 [facility] Albumin [Mass/Vol] 2.4 g/dL Low 3.4-5.0 [facility] ALP [Catalytic activity/Vol] 82 U/L 46-116 [facility] ALT [Catalytic activity/Vol] 39 U/L 16-63 [facility] AST [Catalytic activity/Vol] 24 U/L 15-37 [facility] Bilirubin [Mass/Vol] 1.1 mg/dL High 0.2-1.0 [facility] Calcium [Mass/Vol] 8.6 mg/dL 8.5-10.1 [facility] Chloride [Moles/Vol] 102 mmol/L 98-107 [facility] CO2 [Moles/Vol] 32.4 mmol/L High 21.0-32.0 [facility] Creatinine [Mass/Vol] 1.64 mg/dL High 0.70-1.30 [facility] GFR/1.73 sq M.predicted MDRD (S/P/Bld) [Vol rate/Area] 51 mL/min/{1.73_m2} Low >=60 mL/min/1.73m 2 [facility] Glucose [Mass/Vol] 194 mg/dL High 74-106 [facility] Potassium [Moles/Vol] 3.9 mmol/L 3.5-5.1 [facility] Protein [Mass/Vol] 5.8 g/dL Low 6.4-8.2 [facility] Sodium [Moles/Vol] 140 mmol/L 136-145 [facility] Urea nitrogen [Mass/Vol] 54.0 mg/dL High 7.0-18.0 [facility] Urea nitrogen/Creatinine [Mass ratio] 32.9 mg/mg [facility] Laboratory - Hematology and Cell countson 08-14-2024 Immature granulocytes/100 WBC (Bld) 0.8 % High 0.0-0.5 [facility] Leukocytes [#/volume] correc beatris for nucleated erythrocytes in Blood by Automated counon 08-14-2024 WBC corrected for nucl RBC Auto (Bld) [#/Vol] Leukocytes [#/volume] corrected for nucleated erythrocytes in Blood by Automated coun 4.0-11.0 [facility] Lymphocytes Auto (Bld) [#/Vo l]on 08-14-2024 Lymphocytes (Bld) [#/Vol] Lymphocytes [#/volume] in Blood by Automated count Low 1.2-3.8 [facility] Lymphocytes/100 WBC Auto (Bl d)on 08-14-2024 Lymphocytes/100 WBC (Bld) Lymphocytes/100 leukocytes in Blood by Automated count Low 20.5-60.0 [facility] MCH Auto (RBC) [Entitic mass ]on 08-14-2024 MCH (RBC) [Entitic mass] MCH [Entitic mass] by Automated count 25.9-34.0 [facility] MCHC Auto (RBC) [Mass/Vol]on 08-14-2024 MCHC (RBC) [Mass/Vol] MCHC [Mass/volume] by Automated count 29.9-35.2 [facility] MCV Auto (RBC) [Entitic vol] on 08-14-2024 MCV (RBC) [Entitic vol] MCV [Entitic volume] by Automated count High 80.0-94.0 [facility] Monocytes Auto (Bld) [#/Vol] on 08-14-2024 Monocytes (Bld) [#/Vol] Automated blood monocyte count 0.3-0.8 [facility] Monocytes/100 WBC Auto (Bld) on 08-14-2024 Monocytes/100 WBC (Bld) Automated monocyte % 1.7-12.0 [facility] Neutrophils Auto (Bld) [#/Vo l]on 08-14-2024 Neutrophils (Bld) [#/Vol] Neutrophils [#/volume] in Blood by Automated count 1.4-6.5 [facility] Neutrophils/100 WBC Auto (Bl d)on 08-14-2024 Neutrophils/100 WBC (Bld) Automated neutrophil % High 43.0-75.0 [facility] No Panel Informationon 08-14 Avinash Test Positive POSITIVE [facility] Arterial Blood Base Excess 6.2 mmol/L High <2.0-2.0 [facility] Arterial Blood Oxygen Saturation 93.3 % [facility] Arterial Blood Partial Pressure CO2 48.3 mm[Hg] High 35.0-45.0 [facility] Arterial Blood Partial Pressure O2 62.0 mm[Hg] Low 80.0-100.0 [facility] Arterial Blood pH 7.413 7.350-7.450 [facility] Blood Gas PEEP +8 [facility] Blood Gas Sample Site RIGHT RADIAL F [facility] Blood Gas Set Respiration Rate 22 [facility] Blood Gas Tidal Volume 600 Fi [facility] Blood Gas Ventilator Mode AC [facility] FiO2 100 % [facility] Oxygen Delivery Device VENT Fi [facility] Eosinophils # (Auto) 0.0 10 3/uL 0.0-0.7 [facility] Immature Granulocyte # (Auto) 0.05 10 3/uL High 0.00-0.03 [facility] Platelet mean volume Auto (B ld) [Entitic vol]on 08-14-2024 Platelet mean volume (Bld) [Entitic vol] Platelet mean volume [Entitic volume] in Blood by Automated count 9.5-13.5 [facility] Platelets Auto (Bld) [#/Vol] on 08-14-2024 Platelets (Bld) [#/Vol] Platelets [#/volume] in Blood by Automated count 150-450 [facility] RBC Auto (Bld) [#/Vol]on RBC (Bld) [#/Vol] Erythrocytes [#/volume] in Blood by Automated count 4.70-6.10 [facility] Serum or plasma albumin/glob ulin mass ratioon 08-14-2024 Albumin/Globulin [Mass ratio] Serum or plasma albumin/globulin mass ratio [facility] Serum or plasma anion gap de terminationon 08-14-2024 Anion gap [Moles/Vol] Serum or plasma an ion gap determination [facility] URINE CULTURE, ROUTINEon Bacteria identified Cx Nom (U) Urine Culture, Routine [facility] Healthcare Bacteria identified Cx Nom (U) No growth [facility] Bacteria identified Cx Nom (U) [facility]formed at: [facility] Bacteria identified Cx Nom (U) [address] [place] [phone] [facility] Bacteria identified Cx Nom (U) Asphalt Engineer: Tyron Saeed PhD, Phone: [phone] [facility] Basophils Auto (Bld) [#/Vol] on 04-08-2024 Basophils (Bld) [#/Vol] 0.1 10 3/uL 0.0-0.1 [facility] Basophils/100 WBC Auto (Bld) on 04-08-2024 Basophils/100 WBC (Bld) 0.4 % 0.2-2.0 [facility] Eosinophils/100 WBC Auto (Bl d)on 04-08-2024 Eosinophils/100 WBC (Bld) 1.7 % 0.9-7.0 [facility] Erythrocyte distribution wid th Auto (RBC) [Ratio]on 04-08-2024 Erythrocyte distribution width (RBC) [Ratio] 13.9 % 11.0-15.0 [facility] Estimated glomerular filtrat ion rate (GFR) non- Americanon 04-08-2024 GFR/1.73 sq M.predicted among non-blacks MDRD (S/P/Bld) [Vol rate/Area] mL/min/{1.73_m2} >=60 [facility] Hematocrit Auto (Bld) [Volum e fraction]on 04-08-2024 Hematocrit (Bld) [Volume fraction] 45.1 % 42.0-54.0 [facility] Hemoglobin [Mass/volume] in Bloodon 04-08-2024 Hemoglobin (Bld) [Mass/Vol] 14.7 g/dL 14.0-18.0 [facility] Kris 04-08-2024 L Specimen: [id number] Received: 04/09/24 Status: SOU Req Num: [id number] Spec Type: Surgical Subm Dr: Rc Curtis DPM, MS Tissues: A Extremity - Amputation, Non-Traumatic (R FOREFOOT) B Extremity - Amputation, Non-Traumatic (R FIRST METATARSEL) Procedures: HE/5, Gross/Micro L5/2, Decalcification/2 Age/ Patient Sex Location Account Attending Physician Tyler Mckinney W 63/M [facility] [id number] Rc Curtis DPM, MS SPEC NUM: [id number] RECD: 04/09/24 STATUS: [facility] REQ NUM: [id number] KATHIE: 04/08/[address]: Rc Curtis DPM, MS ENTERED: 04/09/24 [facility] DR: Ekta Heath SPEC TYPE: Surgical DEPT: ALEJANDRO JACOBS ENTERED BY: [id number] RECV BY: [id number] ORDERED: HE/5, Gross/Micro L5/2, Decalcification/2 ORDERED: HE/5, [...] of the ulcerated lesion reveals -------- Specimen: [id number] Received: 04/09/24 Status: TAMI Colon Num: [id number] Spec Type: Surgical Subm Dr: Rc Curtis,DPM, MS Tissues: A Extremity - Amputation, Non-Traumatic (R FOREFOOT) B Extremity - Amputation, Non-Traumatic (R FIRST METATARSEL) Procedures: HE/5, Gross/Micro L5/2, Decalcification/2 -------- Patient: Tyler Mckinney [id number] (Continued) -------- Specimen: [id number] Received: 04/09/24 (Continued) Gross Description (Continued) Signed (signature on file) Genaro Zamora MD 04/19/24 1844 -------- Specimen: [id number] Received: 04/09/24 Status: TAMI Colon Num: [id number] Spec Type: Surgical Subm Dr: Rc Curtis,DPM, MS Tissues: A Extremity - Amputation, Non-Traumatic (R FOREFOOT) B Extremity - Amputation, Non-Traumatic (R FIRST METATARSEL) Procedures: HE/5, Gross/Micro L5/2, Decalcification/2 -------- Patient: Tyler Mckinney [id number] (Continued) -------- Specimen: [id number] Received: 04/09/24 (Continued) Gross Description (Continued) exposed bone. The lesion is abutting the soft tissue margin. The resection margin of the metatarsals are inked first blue, second green, third yellow, fourth orange, fifth red. [employer] Manager sections are as follows: A1 soft tissue margin en face A2 first metatarsal bone margin en face, (submitted in decal before routine processing) A3 remaining metatarsal bone margins en face, (submitted in decal before routine processing) A4 mill representative section of the lesion with distal [...] performed supporting the above interpretation CPT Codes [id number] x2 -------- -------- Specimen: [id number] Received: 04/09/24 Status: TAMI Colon Num: [id number] Spec (more content not included)... Normal [facility] Laboratory - Chemistry and C hemistry - challengeon 04-08-2024 Calcium [Mass/Vol] 10.6 mg/dL High 8.5-10.1 [facility] Chloride [Moles/Vol] 98 mmol/L 98-107 [facility] CO2 [Moles/Vol] 34.6 mmol/L High 21.0-32.0 [facility] Creatinine [Mass/Vol] 1.03 mg/dL 0.70-1.30 [facility] GFR/1.73 sq M.predicted MDRD (S/P/Bld) [Vol rate/Area] mL/min/{1.73_m2} >=60 [facility] Glucose [Mass/Vol] 178 mg/dL High 74-106 [facility] Potassium [Moles/Vol] 4.4 mmol/L 3.5-5.1 [facility] Sodium [Moles/Vol] 135 mmol/L Low 136-145 [facility] Urea nitrogen [Mass/Vol] 16.0 mg/dL 7.0-18.0 [facility] Urea nitrogen/Creatinine [Mass ratio] 15.5 mg/mg [facility] Laboratory - Hematology and Cell countson 04-08-2024 Immature granulocytes/100 WBC (Bld) 1.1 % High 0.0-0.5 [facility] Leukocytes [#/volume] correc beatris for nucleated erythrocytes in Blood by Automated counon 04-08-2024 WBC corrected for nucl RBC Auto (Bld) [#/Vol] 13.3 10 3/uL High 4.0-11.0 [facility] Lymphocytes Auto (Bld) [#/Vo l]on 04-08-2024 Lymphocytes (Bld) [#/Vol] 1.7 10 3/uL 1.2-3.8 [facility] Lymphocytes/100 WBC Auto (Bl d)on 04-08-2024 Lymphocytes/100 WBC (Bld) 12.5 % Low 20.5-60.0 [facility] MCH Auto (RBC) [Entitic mass ]on 04-08-2024 MCH (RBC) [Entitic mass] 31.1 pg 25.9-34.0 [facility] MCHC Auto (RBC) [Mass/Vol]on 04-08-2024 MCHC (RBC) [Mass/Vol] 32.6 g/dL 29.9-35.2 [facility] MCV Auto (RBC) [Entitic vol] on 04-08-2024 MCV (RBC) [Entitic vol] 95.6 fL High 80.0-94.0 [facility] Monocytes Auto (Bld) [#/Vol] on 04-08-2024 Monocytes (Bld) [#/Vol] 1.0 10 3/uL High 0.3-0.8 [facility] Monocytes/100 WBC Auto (Bld) on 04-08-2024 Monocytes/100 WBC (Bld) 7.3 % 1.7-12.0 [facility] Neutrophils Auto (Bld) [#/Vo l]on 04-08-2024 Neutrophils (Bld) [#/Vol] 10.3 10 3/uL High 1.4-6.5 [facility] Neutrophils/100 WBC Auto (Bl d)on 04-08-2024 Neutrophils/100 WBC (Bld) 77.0 % High 43.0-75.0 [facility] No Panel InformationOrdered By: Rc Curtis on 04-08-2024 Acid Fast Smear [facility] AFB Specimen Processing [facility] Anaerobic Cult, Extended Incub [facility] Tissue Culture [facility] No Panel Informationon 04-08 Fungal Smear Result \R\ Fungus Stain [facility] Gram Stain Result 1 \R\ Gram Stain Result [facility] Miscellaneous Test Comment See comment [facility] Comment on above: Specimen Source: ELENA TRT - Foot Right - Foot Rt - 604.000 Eosinophils # (Auto) 0.2 10 3/uL 0.0-0.7 [facility] Immature Granulocyte # (Auto) 0.15 10 3/uL High 0.00-0.03 [facility] Platelet mean volume Auto (B ld) [Entitic vol]on 04-08-2024 Platelet mean volume (Bld) [Entitic vol] 9.8 fL 9.5-13.5 [facility] Platelets Auto (Bld) [#/Vol] on 04-08-2024 Platelets (Bld) [#/Vol] 482 10 3/uL High 150-450 [facility] RBC Auto (Bld) [#/Vol]on RBC (Bld) [#/Vol] 4.72 10 6/uL 4.70-6.10 [facility] Serum or plasma anion gap de terminationon 04-08-2024 Anion gap [Moles/Vol] 6.8 mmol/L [facility] ALL CBC WITH AUTO DIFFon BASOPHILS ABSOLUTE AUTO 0.1 [facility] Basophils/100 WBC (Bld) 0.6 % 0.2 - 2.0 % [facility] Eosinophils/100 WBC (Bld) 2.1 % 0.9 - 7.0 % [facility] Erythrocyte distribution width (RBC) [Ratio] 14.0 % 11.0 - 15.0 % [facility] Hematocrit (Bld) [Volume fraction] 41.9 % Low 42.0 - 54.0 % [facility] Hemoglobin (Bld) [Mass/Vol] 13.7 g/dL Low 14.0 - 18.0 g/dL [facility] IMMATURE GRANULOCYTES ABS AUTO 0.46 High [facility] Immature granulocytes/100 WBC (Bld) 2.9 % High 0.0 - 0.5 % [facility] Interpretation and review of laboratory results Abnormal [facility] LYMPHOCYTES ABSOLUTE AUTO 2.3 [facility] Lymphocytes/100 WBC (Bld) 14.7 % Low 20.5 - 60.0 % [facility] MCH (RBC) [Entitic mass] 31.5 pg 25.9 - 34.0 pg [facility] MCHC (RBC) [Mass/Vol] 32.7 g/dL 29.9 - 35.2 g/dL [facility] MCV (RBC) [Entitic vol] 96.3 fL High 80.0 - 94.0 fL [facility] MONOCYTES ABSOLUTE AUTO 1.2 High [facility] Monocytes/100 WBC (Bld) 7.8 % 1.7 - 12.0 % [facility] NEUTROPHILS ABSOLUTE AUTO 11.4 High [facility] Neutrophils/100 WBC (Bld) 71.9 % 43.0 - 75.0 % [facility] Platelet mean volume (Bld) [Entitic vol] 10.2 fL 9.5 - 13.5 fL [facility] TBH EO # 0.3 [facility] PLT 475 High [facility] TB RBC 4.35 Low [facility] WBC 15.8 High [facility] Kris 03-29-2024 L Specimen: [id number] Received: 03/29/247546 Status: [facility] Num: [id number] Spec Type: Surgical Subm Dr: Rc Curtis,DPM, MS Tissues: A Bone Fragments - Other than Path Fracture (R 1 METARSAL BONE) Procedures: HE, Gross/Micro L3, Decalcification Age/ Patient Sex Location Account Attending Physician Tyler Mckinney W 63/M LABELL [id number] Rc Curtis DPM, MS SPEC NUM: [id number] RECD: 03/29/24 STATUS: TAMI COLON NUM: [id number] KATHIE: 03/29/[address]: Rc Curtis DPM, MS ENTERED: 03/29/24 [facility] DR: Ekta Heath SPEC TYPE: Surgical DEPT: ALEJANDRO JACOBS ENTERED BY: [id number] RECV BY: [id number] ORDERED: HE, Gross/Micro L3, Decalcification ORDERED: HE, [...] performed supporting the above interpretation -------- Specimen: [id number] Received: 03/29/24 Status: TAMI Darlene Num: [id number] Spec Type: Surgical Subm Dr: Rc Curtis DPM, MS Tissues: A Bone Fragments - Other than Path Fracture (R 1 METARSAL BONE) Procedures: HE, Gross/Micro L3, Decalcification -------- Patient: Tyler Mckinney [id number] (Continued) -------- Specimen: [id number] Received: 03/29/24 (Continued) Signed (signature on file) Genaro Zamora MD 04/05/241707 -------- Specimen: [id number] Received: 03/29/24 Status: TAMI Colon Num: [id number] Spec Type: Surgical Subm Dr: Rc Cutris,DPM, MS Tissues: A Bone Fragments - Other than Path Fracture (R 1 METARSAL BONE) Procedures: DUNCAN, Gross/Micro L3, Decalcification -------- Patient: Tyler Mckinney [id number] (Continued) -------- Specimen: [id number] Received: 03/29/24 (Continued) CPT Codes [id number] [id number] -------- -------- Specimen: [id number] Received: 03/29/24 Status: TAMI Colon Num: [id number] Spec Type: Surgical Subm Dr: cR Curtis,DPShantell, MS Tissues: A Bone Fragments - Other than Path Fracture (R 1 METARSAL BONE) Procedures: DUNCAN, Gross/Micro L3, Decalcification -------- Patient: Tyler Mckinney [id number] (Continued) -------- Signed (signature on file) Genaro Zamora MD 04/05/24 1708 Normal [facility] XR FOOT LT MIN 3 [...] Sukhdev PARKS Date: 2022-07-14 23:08 Normal [facility] GLYCOHEMOGLOBIN A1Con 2021 ADA RECOMMENDATION SEE BELOW Normal [facility] Comment on above: Result Comment: ADA RECOMMENDED LIMIT 4.0 - 6.0 ADA THERAPEUTIC TARGET < 7.0 ACTION SUGGESTED > 7.0 Performed By: #### A 1C #### [facility] [address] [address] [address] Jennifer Zamora Glucose [Mass/Vol] 212 mg/dL Normal [facility] Comment on above: Performed By: #### A 1C #### [facility] [address] [address] [address] Jennifer Zamora HbA1c (Bld) [Mass fraction] 9.0 % Critically high 4.5-6.2 [facility] Comment on above: Performed By: #### A 1C #### [facility] [address] [address] [address] Jennifer Zamora PROF 14(COMP METB)on 022 Albumin [Mass/Vol] 3.4 g/dL Normal 3.4-5.0 [facility] Comment on above: Performed By: #### C MP #### [facility] [address] [place] [address] Dr. Jennifer Zamora Albumin/Globulin [Mass ratio] 0.9 {ratio} Normal [facility] Comment on above: Performed By: #### C MP #### [facility] [address] [address] [address] Jennifer Zamora ALP [Catalytic activity/Vol] 108 U/L Normal 46-116 [facility] Comment on above: Performed By: #### C MP #### [facility] [address] [place] [address] Dr. Jennifer Zamora ALT [Catalytic activity/Vol] 35 U/L Normal 16-63 [facility] Comment on above: Performed By: #### C MP #### [facility] [address] [place] [address] Dr. Jennifer Zamora Anion gap [Moles/Vol] 7.0 mmol/L Normal [facility] Comment on above: Performed By: #### C MP #### [facility] [address] [place] [address] Dr. Jennifer Zamora AST [Catalytic activity/Vol] 11 U/L Critically low 15-37 [facility] Comment on above: Performed By: #### C MP #### [facility] [address] [place] [address] Dr. Jennifer Zamora Bilirubin [Mass/Vol] 0.7 mg/dL Normal 0.2-1.0 [facility] Comment on above: Performed By: #### C MP #### [facility] [address] [place] [address] Dr. Jennifer Zamora Calcium [Mass/Vol] 8.9 mg/dL Normal 8.5-10.1 [facility] Comment on above: Performed By: #### C MP #### [facility] [address] [place] [address] Dr. Jennifer Zamora Chloride [Moles/Vol] 100 mmol/L Normal 98-107 [facility] Comment on above: Performed By: #### C MP #### [facility] [address] [address] [address] Jennifer Zamora CO2 [Moles/Vol] 32.5 mmol/L Critically high 21.0-32.0 [facility] Comment on above: Performed By: #### C MP #### [facility] [address] [address] [address] Jennifer Zamora Creatinine [Mass/Vol] 1.05 mg/dL Normal 0.70-1.30 [facility] Comment on above: Performed By: #### C MP #### [facility] [address] [address] [address] Jennifer Zamora EGFR-AF MOROCCAN >60 Normal >=60 [facility] Comment on above: Performed By: #### C MP #### [facility] [address] [place] [address] Dr. Jennifer Zamora EGFR-NON AF MOROCCAN >60 Normal >=60 [facility] Comment on above: Performed By: #### C MP #### [facility] [address] [address] [address] Jennifer Zamora Globulin (S) [Mass/Vol] 3.7 g/dL Normal [facility] Comment on above: Performed By: #### C MP #### [facility] [address] [place] [address] Dr. Jennifer Zamora Glucose [Mass/Vol] 175 mg/dL Critically high 74-106 [facility] Comment on above: Performed By: #### C MP #### [facility] [address] [place] [address] Dr. Jennifer Zamora Potassium [Moles/Vol] 4.5 mmol/L Normal 3.5-5.1 [facility] Comment on above: Performed By: #### C MP #### [facility] [address] [address] [address] Jennifer Zamora Protein [Mass/Vol] 7.1 g/dL Normal 6.4-8.2 [facility] Comment on above: Performed By: #### C MP #### [facility] [address] [address] [address] Jennifer Zamora Sodium [Moles/Vol] 135 mmol/L Critically low 136-145 Th e [facility] Comment on above: Performed By: #### C MP #### [facility] [address] [address] [address] Jennifer Zamora Urea nitrogen [Mass/Vol] 18.0 mg/dL Normal 7.0-18.0 [facility] Comment on above: Performed By: #### C MP #### [facility] [address] [address] [address] Jennifer Zaomra Urea nitrogen/Creatinine [Mass ratio] 17.1 mg/mg Normal [facility] Comment on above: Performed By: #### C MP #### [facility] [address] [address] [address] Jennifer Zamora Vital Signs Date Time Vital Sign Value Performing Clinician Faci lity 02-01-2025 14:090400 Body height 180.34 cm Dara Eisenberg APRN Work Phone: [facility] 02-01-2025 14:090400 Body mass index (BMI) [Ratio] 41.7 kg/m2 Dara Eisenberg APRN Work Phone: [facility] 02-01-2025 14:09-0400 Body temperature 96.5 [degF] Dara Eisenberg APRN Work Phone: [facility] 02-01-2025 14:09-0400 Body weight 135.62 kg Dara Eisenberg APRN Work Phone: [facility] 02-01-2025 14:09-0400 Diastolic blood pressure 68 mm[Hg] Dara Eisenberg APRN Work Phone: [facility] 02-01-2025 14:090400 Heart rate 102 /min Dara Eisenberg APRN Work Phone: [facility] 02-01-2025 14:09-0400 SaO2% (BldA) [Mass fraction] 96 % Dara Eisenberg APRN Work Phone: [facility] 02-01-2025 14:09-0400 Systolic blood pressure 114 mm[Hg] Dara Eisenberg APRN Work Phone: [facility] 11-05-2024 10:260400 Body height 180.34 cm [facility] 11-05-2024 10:260400 Body mass index (BMI) [Ratio] 44.7 kg/m2 [facility] 11-05-2024 10:260400 Body weight 145.6 kg [facility] 11-05-2024 10:26040 Diastolic blood pressure 68 mm[Hg] [facility] 11-05-2024 10:260400 Heart rate 98 /min [facility] 11-05-2024 10:0400 Respiratory rate 14 /min [facility] 11-05-2024 10:26-0400 SaO2% (BldA) [Mass fraction] 90 % [facility] 11-05-2024 10:26-0400 Systolic blood pressure 128 mm[Hg] [facility] 05-03-2024 14:14-0400 Body height 180.34 cm ROWDY Eisenberg Work Phone: [facility] 05-03-2024 14:14-0400 Body mass index (BMI) [Ratio] 39.3 kg/m2 [employer]OK[employer]Fauzia Eisenberg Work Phone: [facility] 05-03-2024 14:14-0400 Body temperature 96.9 [degF] ROWDY Eisenberg Work Phone: [facility] 05-03-2024 14:14-0400 Body weight 128 kg ROWDY Eisenberg Work Phone: [facility] 05-03-2024 14:14-0400 Diastolic blood pressure 86 mm[Hg] ROWDY Eisenberg Work Phone: [facility] 05-03-2024 14:14-0400 Heart rate 108 /min [employer] BROKERFauzia Diamond Faina Work Phone: [facility] 05-03-2024 14:14-0400 SaO2% (BldA) [Mass fraction] 92 % [employer] BROKERFauzia Diamond Faina Work Phone: [facility] 05-03-2024 14:14-0400 Systolic blood pressure 142 mm[Hg] [employer] BROKERFauzia Diamond Faina Work Phone: [facility] 04-05-2024 13:44-0400 Body height 180.34 cm DPM Rc Curtis Work Phone: [facility] 04-05-2024 13:44-0400 Body mass index (BMI) [Ratio] 39.6 kg/m2 DPM Rc Curtis Work Phone: [facility] 04-05-2024 13:44-0400 Body temperature 97.4 [degF] DPM Rc Curtis Work Phone: [facility] 04-05-2024 13:44-0400 Body weight 128.82 kg DPM Rc Curtis Work Phone: [facility] 04-05-2024 13:44-0400 Diastolic blood pressure 70 mm[Hg] DPM cR Curtis Work Phone: [facility] 04-05-2024 13:44-0400 Heart rate 61 /min DPM Rc Curtis Work Phone: [facility] 04-05-2024 13:44-0400 SaO2% (BldA) [Mass fraction] 87 % DPM Rc Curtis Work Phone: [facility] 04-05-2024 13:44-0400 Systolic blood pressure 134 mm[Hg] DPShantell Curtis Work Phone: [facility] Encounters Encounter Date Encounter Type Care Provider Facility Start: 02-15-2025 ambulatory Helen Justi Facility: [facility] Start: 02-01-2025 End: 02-01-2025 ambulatory Dara Eisenberg APRN Work Phone: [facility] Work Phone: Start: 02-01-2025 End: 02-01-2025 Patient encounter procedure Dara Eisenberg APRN [facility] Work Phone: Start: 01-27-2025 Non-patient / Non-visit Angelic Gen [facility] Work Phone: Start: 01-24-2025 End: 01-26-2025 Evaluation and management of inpatient Ghassan Zepeda Noahkinsey Facility:[facility] Start: 01-24-2025 Emergency department patient visit Manuel Fletcher Facility:[facility] Start: 11-05-2024 End: 11-05-2024 ambulatory [facility] Work Phone: Start: 11-05-2024 End: 11-05-2024 Patient encounter procedure [facility] Work Phone: Start: 08-29-2024 Evaluation and management of inpatient MERRILL SAFI [facility] Start: 08-26-2024 Evaluation and management of inpatient BILL HORANI [facility] Start: 08-24-2024 Evaluation and management of inpatient PALOMO CADENCE [facility] Start: 08-24-2024 Evaluation and management of inpatient PALOMO CADENCE [facility] Start: 08-21-2024 [facility] Start: 08-21-2024 [facility] Start: 08-20-2024 Evaluation and management of inpatient [facility] Start: 08-20-2024 Evaluation and management of inpatient [facility]UD[facility] Start: 08-19-2024 Evaluation and management of inpatient RUDY [facility] Start: 08-17-2024 Evaluation and management of inpatient RUDY [facility] Start: 08-16-2024 Evaluation and management of inpatient RUDY [facility] Start: 08-16-2024 Evaluation and management of inpatient RUDY [facility] Start: 08-15-2024 Evaluation and management of inpatient HUGO PRAJAPATI [facility] Start: 08-15-2024 End: 09-09-2024 Evaluation and management of inpatient SHAIKH MONO [facility] Start: 08-15-2024 Non-patient / Non-visit [facility] Work Phone: Start: 08-14-2024 Non-patient / Non-visit [facility] Work Phone: Start: 08-10-2024 End: 08-12-2024 Clinisync Result Encounter Shaikh Mono JARRETT Work Phone: [facility] Unsolicited Start: 08-10-2024 End: 08-12-2024 Clinisync Result Encounter Shaikh Mono JARRETT Work Phone: [facility] Unsolicited Start: 05-03-2024 End: 05-03-2024 ambulatory ROWDY Eisenberg Work Phone: [facility] Work Phone: Start: 05-03-2024 End: 05-03-2024 Patient encounter procedure ROWDY Eisenberg Work Phone: [facility] Work Phone: Start: 04-12-2024 End: 04-12-2024 ambulatory ROWDY Eisenberg Work Phone: [facility] Work Phone: Start: 04-12-2024 End: 04-12-2024 Patient encounter procedure ROWDY Eisenberg Work Phone: [facility] Work Phone: Start: 04-08-2024 End: 04-08-2024 ambulatory [employer] BROKERFauzia Diamond Faina Work Phone: [facility] Work Phone: Start: 04-08-2024 End: 04-08-2024 Departed Referred ROWDY Diamond Faina Work Phone: [facility] Start: 04-08-2024 Non-patient / Non-visit [employer] BROKERFauzia Diamond Faina Work Phone: [facility] Work Phone: Start: 04-05-2024 End: 04-05-2024 Clinisync Result Encounter Shaikh Mono JARRETT Work Phone: [facility] Unsolicited Start: 04-05-2024 End: 04-05-2024 Clinisync Result Encounter Shaikh Mono JARRETT Work Phone: [facility] Unsolicited Start: 04-05-2024 End: 04-05-2024 ambulatory DPM Rc Curtis Work Phone: [facility] Work Phone: Start: 04-05-2024 End: 04-05-2024 Patient encounter procedure DPM Rc Curtis Work Phone: [facility] Work Phone: Start: 03-29-2024 End: 03-29-2024 [facility] Work Phone: Start: 03-29-2024 End: 03-29-2024 Departed Referred DPM Rc Curtis Work Phone: [facility] Start: 01-26-2024 Non-patient / Non-visit DPM Rc Curtis Work Phone: [facility] Work Phone: Start: 07-14-2022 End: 07-15-[address] EDELMIRA SANTILLAN Facility:[facility] Start: 05-13-2022 End: 05-14-[address] MADELEINE MARCELINO Facility:[facility] Procedures Date Procedure Procedure Detail Performing Clinician Start: 08-10-2024 Bacteria identified in Urine by Culture Shaikh Mono JARRETT Work Phone: Start: 04-08-2024 Acid Fast Smear [employer] Elmer Eisenberg Work Phone: Start: 04-08-2024 AFB [...] 04-08-2024 Acid Fast Culture Acid Fast Culture [facility] Payers Date Payer Category Payer Private Health Insurance [id number] 2024 Self-pay 2024 Medicare [id number] 1961 Self-pay [id number] 1961 Unknown [id number] 1961 Unknown [id number] 1958 Unknown [id number] .593 1958 Unknown [id number] [id number] .593 1958 Unknown [id number] [id number] .727 1958 Unknown [id number] [id number] .727 1958 Unknown [id number] [id number] .727 1958 Unknown [id number] 2.16.840.1.762614.3.579.2 .727 1958 Unknown [id number] 2.16.840.1.701678.3.579.2 .72 1958 Unknown [id number] 2.16.840.1.540985.3.579.2 .72 1958 Unknown [id number] 2.16.840.1.145402.3.579.2 .72 1958 Unknown [id number] 2.16.840.1.599360.3.579.2 .72 1958 Unknown [id number] 2.16.840.1.382283.3.579.2 .727 Medicare [employer] [employer] [id number] Private Health Insurance [facility] [id number] Unknown [id number] .531 Unknown Regular Insurance [id number] Social History Date Type Detail Facility Tobacco smoking status [facility] Unknown if ever smoked [facility] Work Phone: Start: 1960 Sex Assigned At Male F [facility] Start: 04-05-2024 Tobacco smoking status NHIS Smoker (finding) [facility] Tobacco smoking status [facility] Tobacco smoking consumption unknown [facility] Start: 1960 Sex assigned at Not on file [facility] Gender identity Not on file [facility] are Start: 11-05-2024 Sex Male (finding) [facility] Start: 04-05-2024 Tobacco smoking status WVIS Smokes tobacco daily (finding) [facility] Medical Equipment Procedure Code Equipment [...] Locations R1: This test was performed at: [facility], [address] [place] [address], [facility] , , [facility] Comment on above: Performed By: #### [id number] #### [facility] [address] [place] [id number] 01-31-2025 Note Microbiology PROCEDURE: Blood Culture Charcoal [...] Locations R1: This test was performed at: [facility], [address] [place] [address], [id number]- , [place], [facility] Comment on above: Performed By: #### 1 [id number] #### [facility] [address] [place] [id number] 01-26-2025 Note Patient Education - Text Atrial [...] signals of the heart. ??? An ambulatory radiation monitor to record your heart's activity for [...] signs of a (more content not included)... 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 Patient was insistent on trying an [id number] supplement that he stated would cure diabetes [...] his wounds and recommended continued follow-up with [facility] where he receives care. Patient successfully passed a voiding trial and was voiding easily after removal of Brunson. Creatinine had improved from 1.4-0.8 on discharge. Medically stable for discharge home on 01/26/2025. Follow-up PCP in 7 to 10 days Continued care at [place] wound [facility] Referral sent to Dr. Rosen in [place] for endocrinology follow-up for better glucose control. Discussed this with patient and he was agreeable. Follow-up with [facility] anticoagulation clinic Medication changes Continue metoprolol Continue [...] Completed -- 01/24/25 20:11:27 EDT Consult to Dish Washer (Dish Washer Consult) - Ordered -- 01/24/25 20:22:00 EDT, [...] & normal b (more content not included)... [facility] Comment on above: Result Comment: Elec [...] signals of the heart. ??? An ambulatory radiation monitor to record your heart's activity for [...] signs of a (more content not included)... [facility] 01-26-2025 Note Progress Note - Matt [...] Plan; TBD Please contact Pharmacy at ext. [phone] if there are any questions. [facility] 01-25-2025 Note Interdisciplinary No te - OT Pt is seen for OT evaluation. AMPA score: 16/24. Pt is agreeable only to sitting EOB, no further transfers or mobility and becomes very agitated due to BLE pain. Pt is below functional baseline for ADL performance. OT to follow for treatment. Recommending HH vs SNF at this time pending progress with treatment. [facility] 01-25-2025 Note Progress Note-Physic janae Assessment/Plan [...] Orders Initial Hospital Care/Day Moderate 55 Minutes 47861 Sbsq Hospital Care/Day Moderate 35 Minutes 44469 2. Cellulitis of leg (L03.119: Cellulitis of [...] Monitoring on telemetry. Patient noncompliant with anticoagulation. [id number] score is 4. Reports that Eliquis dose [...] despite clear documentation from previous admission in [place] in August 2024. Reports that he stopped taking all of his diabetes medications. 8. Insulin dependent type 2 diabetes mellitus (E11.9: Type 2 diabetes mellitus without complications) A1c: 12.6 BGT ACHS with sliding scale insulin as needed Lantus 30 units nightly at home. Patient noncompliant. Tolerated 20units QHS 01/24, uptitrate to 30 units today. Goal glucose will be less than 180. 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 [facility] Comment on above: Result Comment: Elec [...] list: All Problems Smoker / SNOMED CT 025806204 / Confirmed Added secondary to documentation in Social History. Tobacco use / SNOMED CT 3906475848 / Confirmed, Active Problems (2) Smoker Tobacco [...] an outpatient with the wound center in [place]. [facility] Comment on above: Result Comment: Elec tronically Signed By: Linda GONZALEZ, Sina Cruz\.br\Date and Time Signed: 01/25/25 12:56 EDT 01-25-2025 Note Interdisciplinary No te - PT PT Evaluation done this date. Pt. with on AM-PAC this date. He requires supervision to CGAx1 with all activity. Uses w/c and FWW at baseline. Recommend home with home health PT. [facility] 01-25-2025 Note Progress Note - Phar [...] Plan; TBD Please contact Pharmacy at ext. [phone] if there are any questions. [facility] 01-24-2025 Note History and Physical Basic [...] would be 75 kg. Given 2 L. [place] sepsis bolus will be 2.25 L, ever, [...] specifically. He follows with Dr. 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 He denies ever seeing vascular surgery. He follows with [place] wound [facility]. Stated that he has not [...] Normal alignment. Ext (more content not included)... [facility] Comment on above: Result Comment: Elec [...] at home: Medicines ??? Take and use [id number] and prescription medicines and creams only as [...] limbs and wais (more content not included)... [facility] 01-24-2025 Note Progress Note-Nurse tourniquerts removed by puneet [facility] 01-24-2025 Note Progress Note - Matt [...] Plan; TBD Please contact Pharmacy at ext. [phone] if there are any questions. Spoke with Dr. Ding - he is ordering a lovenox bridge [facility] 01-24-2025 Note Progress Note-Nurse derrell stopped after 4 minutes for blood cultures that are new order. puneet informed. [facility] 01-24-2025 Note Progress Note-Nurse pt reportedly wears 5 lpm at ho me. d8id not say before. no saturating properly on at home O2 [facility] 11-05-2024 Evaluation note Diagnosis Onset Date [...] Venous insufficiency (chronic) (peripheral) acute October 10:18am [facility] Work Phone: 1(996) 792-573002-20-2025 Note[facility] 09-09-2024 NoteUniversity [facility]02-19-2025 NoteUniversity [facility]02-19-2025 Note[facility] 09-07-2024 NoteDISCHARGE PLANNING UPDATE Patient now agreeable to SNF placement. Insurance authorization submitted for [facility] in [place]. Awaiting insurance decision.[facility]02-18-2025 [facility]Un[facility]-07-2024 NoteUnThe [facility]02-18-2025 NoteUniversity [facility]02-18-2025 Note[facility] 09-07-2024 NoteUniversity [facility]02-18-2025 NoteUniversity [facility]02-17-2025 Note[facility] 09-06-2024 NoteUniversity [facility]02-17-2025 NoteUniversity [facility]02-17-2025 NoteUn[facility] 09-05-2024 NoteUnThe [facility]02-16-2025 NoteUn[facility]02-15-2025 NoteUn[facility] 09-04-2024 NoteUn[facility]02-15-2025 NoteUn[facility]02-14-2025 NoteUn[facility] 09-03-2024 NoteUn[facility]02-14-2025 NoteUn[facility]02-13-2025 NoteUn[facility] 09-02-2024 NoteUnThe [facility]02-13-2025 NoteUnThe [facility]02-13-2025 NoteUn[facility] 09-01-2024 NoteDISCHARGE PLANNING UPDATE [facility] ([place], [place]) is [facility]. Per their admissions team, they are submitting to insurance for authorization today, 09/01.[facility] 09-01-2024 NoteUnThe [facility]02-12-2025 NoteUniversity [facility]02-11-2025 NoteUn[facility] 08-31-2024 NoteUniversity [facility]02-11-2025 NoteUniversity [facility]02-11-2025 NoteUniversity [facility] 08-30-2024 NoteUniversity [facility]02-10-2025 NoteUniversity [facility]02-10-2025 NoteUniversity [facility] 08-30-2024 NoteUnThe [facility]02-09-2025 NoteUnThe [facility]02-08-2025 NoteUnThe [facility] 08-28-2024 NoteUniversity [facility]02-08-2025 NoteUniversity [facility]02-07-2025 NoteUniversity [facility] 08-27-2024 NoteUniversity [facility]02-06-2025 NoteUnThe [facility]02-06-2025 NoteUnThe [facility] 08-26-2024 NoteUnThe [facility]02-06-2025 NoteUnThe [facility]02-05-2025 NoteUnThe [facility] 08-25-2024 NoteUnThe [facility]02-05-2025 NoteUnThe [facility]02-05-2025 NoteUn[facility] 08-24-2024 NoteUnThe [facility]02-04-2025 NoteUnThe [facility]02-04-2025 NoteUnThe [facility] 08-24-2024 NotePatient is off unit for testing at this time.[facility]02-04-2025 NoteUnThe [facility]02-04-2025 Note [facility]02-04-2025 NoteUnThe [facility]02-04-2025 NoteUnThe [facility]02-04-2025 Note [facility]02-03-2025 NoteUnThe [facility]02-03-2025 NoteUniversity [facility]02-02-2025 Note [facility]02-01-2025 NoteUniversity [facility]02-01-2025 NoteUniversity [facility]01-31-2025 Note [facility]01-31-2025 NoteUniversity [facility]01-30-2025 NoteUnThe [facility]01-29-2025 Note [facility]01-28-2025 NoteUnThe [facility]01-28-2025 NoteUnThe [facility]01-27-2025 Note [facility]01-27-2025 NoteUnThe [facility]01-27-2025 NoteUnThe [facility] Hospital at SouthwoodsEvaluation noteNo assessment information availableOhiohealth [facility] Work Phone: Evaluation note* Diagnosis Onset Date Resolution Status Type 2 diabetes mellitus acu [facility] Work Phone: Evaluation note* Diagnosis Onset Date Resolution Status COPD (chronic obstructive pulmonary disease) acute Hypertension acute MRSA cellulitis of right foot acute Nicotine dependence acute Non-compliance acute Oxygen dependent acute Type 2 diabetes mellitus acu te Ulcer of right foot due to type 2 diabetes mellitus acute [facility] Work Phone: Evaluation note* Diagnosis Onset Date Resolution Status COPD (chronic obstructive pulmonary disease) acute Hypertension acute MRSA cellulitis of right foot acute Nicotine dependence acute Non-compliance acute Oxygen dependent acute Type 2 diabetes mellitus acu te Ulcer of right foot due to type 2 diabetes mellitus acute Acute osteomyelitis of foot acute [facility] Work Phone: Evaluation note* Diagnosis Onset Date Resolution Status COPD (chronic obstructive pulmonary disease) acute Hypertension acute MRSA cellulitis of right foot acute Nicotine dependence acute Non-compliance acute Oxygen dependent acute Type 2 diabetes mellitus acu te Ulcer of right foot due to type 2 diabetes mellitus acute Acute osteomyelitis of foot acute Low back pain acute [facility] Work Phone: Evaluation note* Diagnosis Onset [...] diabetes mellitus acute November 05, 2024 10:18am [facility] Work Phone: Reason for referral (narrative)No reason for referral information availableCleveland Clinic [facility] Work Phone: Summary Purpose Family History No Family History Records Found Relationship Condition Age at Onset Recorded Date/T mecca mother Malignant neoplasm of cervix Unknown Advance Directives No Advanced Directives Records Found Advance Directive Response Recorded Date/ Time Advance Directives No March 2:40pm Chief Complaint and Reason for Visit Chief Complaint Admit Date F/U group home stay/Medications-HIGH R ISK November 05, 2024 10:18am Amb Documentation January 27, 2025 8:33 am [facility] follow up February 01, 2025 2:06 pm [...] 2024 10:18am Chief Complaint Admit Date F/U group home stay/Medications-HIGH R ISK November 05, 2024 10:18am [...] and content) DATE CREATED AUTHOR 07/19/2022 [facility] DATE CREATED AUTHOR AUTHOR'S ORGANIZ ATION 04/20/2024 [facility] DATE CREATED AUTHOR AUTHOR'S ORGANIZ ATION 10/20/2024 [facility] DATE CREATED AUTHOR AUTHOR'S ORGANIZ ATION 01/28/2025 [employer] [facility] DATE CREATED AUTHOR AUTHOR'S ORGANIZ ATION 01/29/2025 [employer] [facility] DATE CREATED AUTHOR AUTHOR'S ORGANIZ ATION 01/30/2025 [employer] [facility] DATE CREATED AUTHOR AUTHOR'S ORGANIZ ATION 02/04/2025 [employer] [facility] DATE CREATED AUTHOR AUTHOR'S ORGANIZ ATION 02/17/2025 Atilio Hernández [facility] Care Teams (unrecognized sec tion and content) Team Status: Active Member Role Status Dates Magnolia Chavez LPN Attending Provider Active St art: January 26, 2024 Team Status: Inactive Member Role Status Dates Rc Curtis DPM MS Attending Provider Active Start: March 29, 2024 End: March 29, 2024 Team Status: Active Member Role Status Dates Dara Eisenberg APRN DOG WALKER-C Primary Care Provider Active Team Status: Inactive Member Role Status Dates Dara Eisenberg APRN DOG WALKER-C Primary Care Provider, Attending Provider Active Start: April 05, 2024 End: April 05, 2024 Team Status: Active Member Role Status Dates Dara Eisenberg APRN DOG WALKER-C Primary Care Provider, Attending Provider Active Start: April 08, 2024 Team Status: Inactive Member Role Status Dates Dara Eisenberg APRN DOG WALKER-C Primary Care Provider Active Start: March 212023 End: April 08, 2024 Rc Curtis DPM MS Attending Provider Active Start: April 08, 2024 End: April 08, 2024 Team Status: Inactive Member Role Status Dates Dara Eisenberg APRN DOG WALKER-C Primary Care Provider Active Start: March 222023 End: April 12, 2024 Navdeep Trujillo MD Attending Provider Active Sta rt: April 12, 2024 End: April 12, 2024 Team Status: Inactive Member Role Status Dates Dara Eisenberg APRN DOG WALKER-C Primary Care Provider, Attending Provider Active Start: May 03, 2024 End: May 03, 2024 Team Status: Active Member Role Status Dates Dara Eisenberg APRN DOG WALKER-C Primary Care Provider Active Start: July Shaikh Mono MD Attending Provider Active Sta rt: August 14, 2024 Team Status: Active Member Role Status Dates Dara Eisenberg APRN DOG WALKER-C Primary Care Provider Active Start: July Shaikh Mono MD Attending Provider Active Sta rt: August 15, 2024 Team Status: Inactive Member Role Status Dates Dara Eisenberg APRN DOG WALKER-C Primary Care Provider, Attending Provider Active Start: November 05, 2024 End: November 05, 2024 Team Status: Inactive Member Role Status Dates Dara Eisenberg APRN DOG WALKER-C Primary Care Provider Active Start: November 05, 2024 End: November 05, 2024 Dara Eisenberg APRN DOG WALKER-Bro Attending Provider Act mook Start: November 05, 2024 End: November 05, 2024 Team Status: Active Member Role Status Dates Dara Eisenberg APRN DOG WALKER-C Primary Care Provider Active Start: January 27, 2025 Angelic Blevins CMA Attending Provider Active Start: January 27, 2025 Team Status: Inactive Member Role Status Dates Dara Eisenberg APRN DOG WALKER-C Primary Care Provider Active Start: February 01, 2025 End: February 01, 2025 Dara Eisenberg APRN DOG WALKER-C Attending Provider Act mook Start: February 01, [...] ON THE PRIMARY CLINICAL RECORDS. [facility] [employer] provides no warranty or guarantee of the accuracy or completeness of information in this document.
== END 2025-03-31 15:01 | disposition home or self-care (01) ==
LOC: WC 04-01 08:25
PROVIDERS: PCP Nurse Practitioner Family; Visit Provider Physician Assistant
DX: I87.313 Chronic venous hypertension (idiopathic) with ulcer of bilateral lower extremity (principal); L97.822 Non-pressure chronic ulcer of other part of left lower leg with fat layer exposed; L97.812 Non-pressure chronic ulcer of other part of right lower leg with fat layer exposed
CPT/HCPCS: 29581

== ENCOUNTER 2025-04-05 12:37 | Outpatient (OUT) | payer MEDICARE, SELFPAY ==
--- OUTSIDE RECORDS SUMMARY | 2024-04-08 04:15 | XMS_ITS ---
Author Organization The [facility] in [place] Address [address] [place] [address] Care Team Providers Care Probate Paralegal Name Role Phone Dara Eisenberg CNP Primary Care Provider U Rc Prado Unavailable [phone] REASON FOR VISIT RT TMA Encounters Encounter Location Date Provider Diagnosis [facility] OUTPATIENT [address] [place] [address] 04/08/2024 Rc Curtis Plan Of Treatment No Information Progress Notes * Onofre SMITHDOB:1960 ([age] yo M)Acc No.[id number]:04/08/2024 UNLOCKED PROGRESS NOTE Patient: Onofre CORDERO Provider: Los Curtis DPM, MS :1960 A ge:63 Y S ex:Male Date:04/08/2024 Address:[address] [place], [place] [id number] Pcp:Dara Eisenberg CNP Check Out:12:18 PM EST * * Electronic signature of Cm Curtis DPM on 04/05/2025 at 12:39 PM EDT Sign off status: Pending Visit Status: C HK (Check Out) * Provider: Los Curtis DPM, MS Date: 04/08/2024 Generated for Cati ng/Fasallyg/eTransmitting on: 04/05/2025 12:39 PM EDT
--- OUTSIDE RECORDS SUMMARY | 2025-04-05 12:40 | XMS_ITS | Encounter Summary ---
Author Organization [facility] Address [address] [place] [address] Care Team Providers Care Home Theatre Technician Name Role Phone Dara Eisenberg MARBLE MACHINE OPERATOR Primary Care Provider Encounter Details Date Type Department Care Team ([facility] Contact Info) Description 01/26/2025 Abstract [facility] [address] [place] [id number] Sina Mckeon, DPM FACFAS [address] [place] [address] Social History Tobacco Use Types Packs/Day Years [...] on filedocumented in this encounter Care Teams Home Theatre Technician Relationship Specialty Start Date End Date Dara Eisenberg NP [address] [facility] [place] [address] [place] [address] PCP - General Family Medicine 11/11/24 documented as of this encounter
--- OUTSIDE RECORDS SUMMARY | 2025-04-05 12:40 | XMS_ITS | Clinical Summary ---
Author Organization [facility] Address [address] [place] [address] Care Team Providers Care Guideman Name Role Phone Dara Eisenberg NP Primary Care Provider [phone] Allergies No known active allergies Medications insulin [...] uit: Not Asked; Counseling Given: Not Answered [facility] Utilities Answer Date Recorded In the past 12 months has th e [email or web address], gas, oil, or water company threatened to [...] any time in the past 12 m [facility], were you homeless or living in a detention (including now)? Patient unable to answer 08/15/2024 [...] [facility] Estimated Average Glucose 189 mg/dL 08/16/2024 12:30 PM EST [facility] Blood Venous blood specimen / Unknown Arterial Line / Unknown 08/15/2024 2:04 PM EST 08/15/2024 2:30 PM EST Chantal Woodruff MD LAB BLOOD ORDERABLES Final Re sult [facility] ([facility]) [address] [place] [address] from Last 3 Months or Most Recently Relevant to Health Maintenance Additional Health Concerns Infection Onset Date Last Indicated MRSA 08/18/2024 08/21/2024 Insurance [employer] Advance Directives * Full Code (Latest Code Status on File) Date Activated Date Inactivated Comments 08/15/2024 12:24 PM 09/09/2024 2:30 PM Care Teams Guideman Relationship Specialty Start Date End Date Dara Eisenberg NP [address] [place], [place] [id number] PCP - General Family Medicine 07/21/24
--- OUTSIDE RECORDS SUMMARY | 2025-04-05 12:40 | XMS_ITS | Clinical Summary ---
Author Organization [employer] [facility] Address [id number] [address] [id number] Care Team Providers Care Can Pusher Name Role Phone Unavailable Primary Care Provider [...]
--- OUTSIDE RECORDS SUMMARY | 2025-04-05 12:40 | XMS_ITS | Clinical Summary ---
Author Organization [facility] Address [address] [place] [address] Care Team Providers Care Top Lift Scourer Name Role Phone No, Physician Primary Care [...] 2008 Falls Risk Assessment 12/02/2023 COVID-19 Vaccine (2023- season) 2025 Influenza Vaccine (#1) 2025 Respiratory Syncytial Virus Immunization: Risk, 60-74 Risk, or 75+ (1 - 1-dose 75+ series) 2033 Care Teams Top Lift Scourer Relationship Specialty Start Date End Date No, Physician [facility] PCP - General 10/04/16
--- OUTSIDE RECORDS SUMMARY | 2025-04-05 12:40 | XMS_ITS | Clinical Summary ---
Author Organization [facility] Address [address] [place] [address] Care Team Providers Care Pathology Specialist Name Role Phone Unavailable Primary Care Provider [...]
--- OUTSIDE RECORDS SUMMARY | 2025-04-05 12:40 | XMS_ITS | Clinical Summary ---
Author Organization [facility] Address [address] [facility] [place] [address] Care Team Providers Care Coil Former Name Role Phone Dara Eisenberg NP Primary Care Provider Encounters Date Type Department Care Team Description 01/26/2025 Abstract [facility] [address] [place] [address] Sina Mckeon, DPM FACFAS from Last 3 Months Social History Tobacco Use Types Packs/Day Years Used Date Smoking Tobacco: Never Assessed Sex and Gender Information Value Date Recorded Sex Assigned at Not on file Legal Sex Male 7:20 PM EDT Gender Identity Not on file Sexual Orientation Not on file Plan of Treatment Not on file Insurance [employer] MED[employer]ARE Care Teams Coil Former Relationship Specialty Start Date End Date Dara Eisenberg NP [address] [place] [id number] PCP - General Family Medicine 11/11/24
--- OUTSIDE RECORDS SUMMARY | 2025-04-05 13:26 | XMS_ITS | CCD ---
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 [place] [address] Neutro Absolute 14.8 E9/L High 2.0-7.5 [facility] Comment on above: Performed By: #### 2 [id number] #### [facility] [address] [place] [address] Neutro Auto 85.3 % High 36.0-75.0 [facility] Comment on above: Performed By: #### 2 [id number] #### [facility] [address] [place] [address] Platelet 269.0 E9/L Normal 150.0-500.0 [facility] Comment on above: Performed By: #### 2 [id number] #### [facility] [address] [place] [address] Platelet mean volume (Bld) [Entitic vol] 8.7 fL Normal 6.4-10.8 [facility] Comment on above: Performed By: #### 2 [id number] #### [facility] [address] [place] [address] RBC 4.8 E12/L Normal 4.3-5.9 [facility] Comment on above: Performed By: #### 2 420462 #### [facility] [address] [place] [address] WBC 17.4 E9/L High 4.0-11.0 [facility] Comment on above: Performed By: #### 2 [id number] #### [facility] [address] [place] [address] Capillary Glucose POCon 0 Glucose [Mass/Vol] 490 mg/dL Abnormal 55-99 [facility] Comment on above: Result Comment: Cindy calle RN/MD Performed By: #### 2 [id number] #### [facility] [address] [place] [address] ED Clinical Summaryon 2024 ED Clinical Summary ED Clinical Summary [address] [address] ED Clinical Summary Person Information [facility] Age[facility] 64 Years : 1960 Sex: Male Language: Guatemalan PCP: DARA EISENBERG CNP Marital Status: Single Phone: [phone] Visit Id: Visit Reason: Medical problem - major; VERICOSE VEIN TOURNIQUET Speciality: Acuity: 2 Enc Type: Inpatient Med Service: Medical Arrival: 01/24/2025 11:29:33 Discharge: LOS: 000 07:25 Checkin: 01/24/2025 11:29:33 Checkout: 01/24/2025 18:54:25 Dispo Type: Admitted as IP to this [facility] EVENTS: Event Name Event Status Request [...] 18:23:37 Patient Care Request 01/24/2025 18:23:37 ADDRESS: [id number] [facility] [address] PHYS DOC NOTES: MEDICAL INFORMATION: Prescriptions Given: New Medications [id number], [address], [place] [id number], [phone] doxycycline (doxycycline hyclate 100 mg Cap) 1 Capsules By Mouth 2 times a day for 7 Days. Refills: 0. PATIENT EDUCATION INFORMATION: Instructions: Cellulitis, Adult, Xcto-xi-[id number]; Bleeding Varicose Veins Follow up: With: Address: When: DARA EISENBERG [address], [address] [place] [phone] Business (1) In 3 days 01/27/2025 Comments: Call Dr for diagnosis based follow up DIAGNOSIS: 1:Severe sepsis; 2:Cellulitis of leg; 3:KRISTINE (acute kidney injury); 4:Atrial fibrillation with RVR; 5: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; 6:Hyponatremia; 7:Noncompliance with medications Normal [facility] ED Note-Physicianon 01-25-20 ED Note-Physician ED [...] of the patient. Sepsis Data [x] Patient's [place] body weight was considered in sepsis fluid [...] nonco (more content not included)... Normal [facility] Comment on above: Result Comment: Elec tronically Signed By: Puneet Jung PA-C\.br\Date and Time Signed: 01/24/25 13:02 EDT\.br\Electronically Co-Signed By: Puneet Jung PA-C.br\Date and Time Co-Signed: 01/24/25 15:25 EDT\.br\Electronically Co-Signed By: Puneet Jung PA-C.br\Date and Time Co-Signed: 01/24/25 16:27 EDT\.br\Electronically Co-Signed By: Justine Otto, Manuel Mathis\.br\Date and Time Co-Signed: 01/24/25 18:08 EDT ED Patient Summaryon 025 ED Patient Summary ED Patient Summary [place] [address] Patient Discharge Instructions Person Information Name: TYLER MCKINNEY Age: 64 Years Arrival Date: 01/24/2025 11:29:33 Discharge Diagnosis: 1:Severe sepsis; 2:Cellulitis of leg; 3:KRISTINE (acute kidney injury); 4:Atrial fibrillation with RVR; 5: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; 6:Hyponatremia; 7:Noncompliance with medications Primary Care Physician: DARA EISENBERG CNP Provider Information Primary Provider: Manuel Fletcher M.D. [employer] Electrician Apprentice:Puneet Jung PA-C The exam and treatment you received in the Emergency Department were for an urgent problem and are not intended as complete care. It is important that you follow up with a doctor, nurse practitioner, or physician???s document control assistant for ongoing care. If your symptoms [...] Instructions: With: Address: When: DARA EISENBERG [address] [facility], [place] [phone] Business (1) In 3 days 01/27/2025 Comments: Call Dr for diagnosis based follow up In the event that this physician does not participate in your insurance network, please consult with your insurance company to find a nearby participating provider. Patient Education Materials: Cellulitis, Adult, Mwvb-fr-Ovwk; Bleeding Varicose Veins A MESSAGE TO ALL PATIENTS REGARDING OPIOIDS PRESCRIPTION OPIOIDS: WHAT YOU NEED TO KNOW Prescription opioids can be used to help relieve uhbiyvif-qq-tclqjn pain and are often prescribed following a [...] toilet, f (more content not included)... Normal [facility] Lactic Acidon 01-24-2025 Lactic Acid Lvl 1.0 mmol/L Normal 0.5-2.2 [facility] Comment on above: Performed By: #### 2 [id number] #### [facility] [address] [place] [address] PT & PTTon 01-24-2025 INR Coag (PPP) [Relative time] 1.03 {INR} Invalid Interpretation Code [facility] Comment on above: Result Comment: INR results are specifically intended to assess patients stabilized on long-term Anticoagulation therapy suggested INR???s ???Less Intensive Anticoagulation??? 2.0 ??? 3.0 Conventional Range 3.0 ??? 4.5 Performed By: #### 1 [id number] #### [facility] [address] [place] [address] PT 11.5 second(s) Normal 9.4-12.5 [facility] Comment on above: Result Comment: 15 [...] the same coagulation reagent and instrumentation as [facility]. Currently there are no coagulation studies available worldwide for children to 14 days, and no normal ranges. Performed By: #### 1 [id number] #### [facility] [address] [place] [address] PTT 27.7 second(s) Normal 25.1-36.5 [facility] Comment on above: Result Comment: Para [...] the same coagulation reagent and instrumentation as [facility]. Currently there are no coagulation studies available worldwide for children to 14 days, and no normal ranges. Heparin therapeutic range (represented by Anti-Factor Xa activity of 0.2 - 0.4 U/mL) corresponds to PTT of 56.6 - 109.0 sec. Performed By: #### 1 [id number] #### [facility] [address] [place] [address] Pre-Arrival Noteon Pre-Arrival Note Pre-Arrival Note Pre-Arrival Summary Name: , Current Date: 01/24/2025 11:30:22 EDT Gender: Date of : Age: Pre-Arrival Type: EMS ETA: 01/24/2025 11:50:00 EDT Primary Care Physician: Presenting Problem: varicose vein tourniquet Pre-Arrival User: [address] Referring Source: Location: [place] Completion Date/Time: 01/24/2025 11:20:00 [facility] Emergency Department Pre-Hospital Report Form Vital Signs: Pre-Hospital Report: Treatment in Route: Response to Treatment: Misc. Issues: Normal [facility] Procalcitoninon 01-24-2025 Procalcitonin .09 ng/mL Normal .00-.50 [facility] Comment on above: Result Comment: [...] to 24 hours. Performed By: #### 2 [id number] #### [facility] [address] [place] [address] Troponin 0 Hr.on 01-24-2025 Troponin HS 4.60 pg/mL Low 15.90-38.40 [facility] Comment on above: Result Comment: The 95% CI (Confidence Interval) PPV (Positive Predictive Value) for myocardial infarction in females is 38 pg/mL, in males 51 pg/mL. The results should be used in conjunction with clinical conditions of myocardial infarction. (Access High Sensitivity Troponin I Instructions For Use, [place], February 2018) Performed By: #### 1 [id number] #### [facility] [address] [place] [address] UA with Cult Rflxon 01-25-20 25 Color (U) Light-Yellow Normal Yellow [facility] Comment on above: Result Comment: Micr oscopic readings are only performed on those samples that meet specific criteria set forth by [facility]. Performed By: #### 4 [id number] #### [facility] [address] [place] [address] Ketones Ql (U) Negative Normal Negative [facility] Comment on above: Performed By: #### 4 [id number] #### [facility] [address] [place] [address] UA Blood 1+ mg/dL Abnormal Negative [facility] Comment on above: Performed By: #### 4 [id number] #### [facility] [address] [place] [address] UA Clarity Clear Normal Clear [facility] Comment on above: Performed By: #### 4 [id number] #### [facility] [address] [place] [address] UA Glucose 4+ mg/dL Abnormal Negative [facility] Comment on above: Performed By: #### 4 [id number] #### [facility] [address] [place] [address] UA Leuk Est Negative Normal Negative [facility] Comment on above: Performed By: #### 4 [id number] #### [facility] [address] [place] [address] UA Mucous Trace Normal Negative [facility] Comment on above: Performed By: #### 4 [id number] #### [facility] [address] [place] [address] UA Nitrite Negative Normal Negative [facility] Comment on above: Performed By: #### 4 [id number] #### [facility] [address] [place] [address] UA pH 5.0 Invalid Interpretation Code 5.0-9.0 [facility] Comment on above: Performed By: #### 4 [id number] #### [facility] [address] [place] [address] UA Protein Negative Normal Negative [facility] Comment on above: Performed By: #### 4 [id number] #### [facility] [address] [place] [address] UA RBC 4-20 Abnormal 0-3 [facility] Comment on above: Performed By: #### 4 [id number] #### [facility] [address] [place] [address] UA Spec Grav 1.020 Invalid Interpretation Code 1.005-1.030 [facility] Comment on above: Performed By: #### 4 [id number] #### [facility] [address] [place] [address] UA Urobilinogen Negative Normal Negative [facility] Comment on above: Performed By: #### 4 [id number] #### [facility] [address] [place] [address] UA WBC 0-5 Normal 0-5 [facility] Comment on above: Performed By: #### 4 [id number] #### [facility] [address] [place] [address] Urobilinogen (U) [Mass/Vol] Negative Normal Negative [facility] Comment on above: Performed By: #### 4 [id number] #### [facility] [address] [place] [address] UA Spec Desc Clean Catch Normal [facility] Comment on above: Performed By: #### 4 [id number] #### [facility] [address] [place] [address] XR Chest 2 Viewson XR Chest 2 [...] Signed by: Krishna Ray MD Transcribed by: UUM Technologist: HUMAN RELATIONS PROFESSOR Normal [facility] eGFRon 01-24-2025 eGFR 55 mL/min/1.73 m2 Low >=59 [facility] Comment on above: Performed By: #### 1 [id number] #### [facility] [address] [place] [address] HbA1c HPLC (Bld) [Mass fract ion]on 11-05-2024 HbA1c (Bld) [Mass fraction] 10.1 % [facility] CBC WITH AUTO DIFFERENTIALon 09-09-2024 Basophils (Bld) [#/Vol] 0.05 10*3/uL Normal 0.00-0.20 [facility] Comment on above: Performed By: #### L [id number] ####[facility] ([facility])[address] [place] [address] Basophils/100 WBC (Bld) 0.6 % Normal 0.0-1.0 [facility] Comment on above: Performed By: #### L [id number] ####[facility] ([facility])[address] [place] [address] Eosinophils (Bld) [#/Vol] 0.43 10*3/uL Normal 0.00-0.50 [facility] Comment on above: Performed By: #### L [id number] ####[facility] ([facility])[address] [place] [address] Eosinophils/100 WBC (Bld) 5.0 % Normal 0.0-6.0 [facility] Comment on above: Performed By: #### L [id number] ####[facility] ([facility])[address] [place] [address] Erythrocyte distribution width (RBC) [Ratio] 15.1 % High 11.5-15.0 [facility] Comment on above: Performed By: #### L [id number] ####[facility] ([facility])[address] [place] [address] ERYTHROCYTE MEAN CORPUSCULAR HEMOGLOBIN CONCENTRATION (G/DL) BY AUTOMATED 31.1 g/dL Low 32.0-35.0 [facility] Comment on above: Performed By: #### L [id number] ####[facility] ([facility])[address] [place] [address] Hematocrit (Bld) [Volume fraction] 48.8 % Normal 39.0-55.0 [facility] Comment on above: Performed By: #### L [id number] ####[facility] ([facility])[address] [place] [address] Hemoglobin (Bld) [Mass/Vol] 15.2 g/dL Normal 13.0-17.0 [facility] Comment on above: Performed By: #### L [id number] ####[facility] ([facility])[address] [place] [address] Immature granulocytes (Bld) [#/Vol] 0.05 10*3/uL Normal 0.00-0.20 [facility] Comment on above: Performed By: #### L [id number] ####[facility] ([facility])[address] [place] [address] Immature granulocytes/100 WBC (Bld) 0.6 % Normal 0.0-1.0 [facility] Comment on above: Performed By: #### L [id number] ####[facility] ([facility])[address] [place] [address] Lymphocytes (Bld) [#/Vol] 1.59 10*3/uL Normal 1.20-4.00 [facility] Comment on above: Performed By: #### L [id number] ####[facility] ([facility])[address] [place] [address] Lymphocytes/100 WBC (Bld) 18.5 % Low 20.0-45.0 [facility] Comment on above: Performed By: #### L [id number] ####[facility] ([facility])[address] [place] [address] MCH (RBC) [Entitic mass] 28.8 pg Normal 27.0-33.0 [facility] Comment on above: Performed By: #### L [id number] ####[facility] ([facility])[address] [place] [address] MCV (RBC) [Entitic vol] 92.6 fL Normal 82.0-98.0 [facility] Comment on above: Performed By: #### L [id number] ####[facility] ([facility])[address] [place] [address] Monocytes (Bld) [#/Vol] 0.90 10*3/uL Normal 0.10-1.00 [facility] Comment on above: Performed By: #### L [id number] ####[facility] ([facility])[address] [place] [address] Monocytes/100 WBC (Bld) 10.5 % Normal 5.0-12.0 [facility] Comment on above: Performed By: #### L [id number] ####[facility] ([facility])[address] [place] [address] Neutrophils (Bld) [#/Vol] 5.56 10*3/uL Normal 1.60-7.60 [facility] Comment on above: Performed By: #### L [id number] ####[facility] ([facility] [place] [address] Neutrophils/100 WBC (Bld) 64.8 % Normal 40.0-72.0 [facility] Comment on above: Performed By: #### L [id number] ####[facility] ([facility])[address] [place] [address] NRBC (PER 100 WBCS) BY AUTOMATED COUNT 0.0 % Normal 0 [facility] Comment on above: Performed By: #### L [id number] ####[facility] ([facility])[address] [place] [address] PLATELETS (10*3/UL) IN BLOOD AUTOMATED COUNT 208 10*3/uL Normal 150-400 [facility] Comment on above: Performed By: #### L [id number] ####[facility] ([facility])[address] [place] [address] RBC (Bld) [#/Vol] 5.27 10*6/uL Normal 4.20-5.70 [facility] Comment on above: Performed By: #### L [id number] ####[facility] ([facility])[address] [place] [address] WBC (Bld) [#/Vol] 8.58 10*3/uL Normal 4.00-10.60 [facility] Comment on above: Performed By: #### L [id number] ####[facility] ([facility])[address] [place] [address] DSon 09-09-2024 DS [facility] MAGNESIUMon 09-09-2024 Magnesium [Mass/Vol] 1.7 mg/dL Low 1.9-2.7 [facility] Comment on above: Performed By: #### L [id number] ####[facility] ([facility])[address] [place] [address] PHOSPHORUSon 09-09-2024 Magnesium [Mass/Vol] 3.2 mg/dL Normal 2.5-5.0 [facility] Comment on above: Performed By: #### L [id number] ####[facility] ([facility])[address] [place] [address] POCT GLUCOSE METER UNSOLICIT ED RESULTSon 09-09-2024 Glucose [Mass/Vol] 114 mg/dL High 70-105 [facility] Comment on above: Order Comment: Waive d Testing in the ED is performed under the ED CLIA certificate #[id number]. Result Comment: [email or web address] [email or web address] Performed By: #### L [id number] ####[facility] ([facility])[address] [place] [address] 30on 09-08-2024 30 Normal [facility] 30 Normal [facility] CBC WITH AUTO DIFFERENTIALon 09-08-2024 Basophils (Bld) [#/Vol] 0.06 10*3/uL Normal 0.00-0.20 [facility] Comment on above: Performed By: #### L [id number] ####[facility] ([facility])[address] [place] [address] Basophils/100 WBC (Bld) 0.8 % Normal 0.0-1.0 [facility] Comment on above: Performed By: #### L [id number] ####[facility] ([facility])[address] [place] [address] Eosinophils (Bld) [#/Vol] 0.43 10*3/uL Normal 0.00-0.50 [facility] Comment on above: Performed By: #### L [id number] ####[facility] ([facility])[address] [place] [address] Eosinophils/100 WBC (Bld) 5.5 % Normal 0.0-6.0 [facility] Comment on above: Performed By: #### L [id number] ####[facility] ([facility])[address] [place] [address] Erythrocyte distribution width (RBC) [Ratio] 15.2 % High 11.5-15.0 [facility] Comment on above: Performed By: #### L [id number] ####[facility] ([facility])[address] [place] [address] ERYTHROCYTE MEAN CORPUSCULAR HEMOGLOBIN CONCENTRATION (G/DL) BY AUTOMATED 30.8 g/dL Low 32.0-35.0 [facility] Comment on above: Performed By: #### L [id number] ####[facility] ([facility])[address] [place] [address] Hematocrit (Bld) [Volume fraction] 45.4 % Normal 39.0-55.0 [facility] Comment on above: Performed By: #### L [id number] ####[facility] ([facility])[address] [place] [address] Hemoglobin (Bld) [Mass/Vol] 14.0 g/dL Normal 13.0-17.0 [facility] Comment on above: Performed By: #### L [id number] ####[facility] ([facility])[address] [place] [address] Immature granulocytes (Bld) [#/Vol] 0.03 10*3/uL Normal 0.00-0.20 [facility] Comment on above: Performed By: #### L [id number] ####[facility] ([facility])[address] [place] [address] Immature granulocytes/100 WBC (Bld) 0.4 % Normal 0.0-1.0 [facility] Comment on above: Performed By: #### L [id number] ####[facility] ([facility])[address] [place] [address] Lymphocytes (Bld) [#/Vol] 1.82 10*3/uL Normal 1.20-4.00 [facility] Comment on above: Performed By: #### L [id number] ####[facility] ([facility])[address] [place] [address] Lymphocytes/100 WBC (Bld) 23.2 % Normal 20.0-45.0 [facility] Comment on above: Performed By: #### L [id number] ####[facility] ([facility])[address] [place] [address] MCH (RBC) [Entitic mass] 29.1 pg Normal 27.0-33.0 [facility] Comment on above: Performed By: #### L [id number] ####[facility] ([facility])[address] [place] [address] MCV (RBC) [Entitic vol] 94.4 fL Normal 82.0-98.0 [facility] Comment on above: Performed By: #### L [id number] ####[facility] ([facility])[address] [place] [address] Monocytes (Bld) [#/Vol] 0.88 10*3/uL Normal 0.10-1.00 [facility] Comment on above: Performed By: #### L [id number] ####[facility] ([facility])[address] [place] [address] Monocytes/100 WBC (Bld) 11.2 % Normal 5.0-12.0 [facility] Comment on above: Performed By: #### L [id number] ####[facility] ([facility])[address] [address] Neutrophils (Bld) [#/Vol] 4.62 10*3/uL Normal 1.60-7.60 [facility] Comment on above: Performed By: #### L [id number] ####[facility] ([facility])[address] [address] Neutrophils/100 WBC (Bld) 58.9 % Normal 40.0-72.0 [facility] Comment on above: Performed By: #### L [id number] ####[facility] ([facility])[address] [place] [address] NRBC (PER 100 WBCS) BY AUTOMATED COUNT 0.0 % Normal 0 [facility] Comment on above: Performed By: #### L [id number] ####[facility] ([facility])[address] [place] [address] PLATELETS (10*3/UL) IN BLOOD AUTOMATED COUNT 231 10*3/uL Normal 150-400 [facility] Comment on above: Performed By: #### L [id number] ####[facility] ([facility])[address] [address] RBC (Bld) [#/Vol] 4.81 10*6/uL Normal 4.20-5.70 [facility] Comment on above: Performed By: #### L [id number] ####[facility] ([facility])[address] [address] WBC (Bld) [#/Vol] 7.84 10*3/uL Normal 4.00-10.60 [facility] Comment on above: Performed By: #### L [id number] ####[facility] ([facility])[address] [address] MAGNESIUMon 09-08-2024 Magnesium [Mass/Vol] 1.6 mg/dL Low 1.9-2.7 [facility] Comment on above: Performed By: #### L [id number] ####[facility] ([employer])[address] [place] [address] NURSNOTEon 09-08-2024 NURSNOTE Normal [facility] PHOSPHORUSon 09-08-2024 Magnesium [Mass/Vol] 3.4 mg/dL Normal 2.5-5.0 [facility] Comment on above: Performed By: #### L [id number] ####[facility] ([facility])[address] [place] [address] POCT GLUCOSE METER UNSOLICIT ED RESULTSon 09-08-2024 Glucose [Mass/Vol] 244 mg/dL High 70-105 [facility] Comment on above: Order Comment: Waive d Testing in the ED is performed under the ED CLIA certificate #[id number]. Result Comment: droc kol Performed By: #### L [id number] ####[facility] ([facility])[address] [place] [address] Glucose [Mass/Vol] 165 mg/dL High 70-105 [facility] Comment on above: Order Comment: Waive d Testing in the ED is performed under the ED CLIA certificate #[id number]. Result Comment: [email or web address] ois3 Performed By: #### L [id number] ####[facility] ([facility])[address] [place] [address] Glucose [Mass/Vol] 110 mg/dL High 70-105 [facility] Comment on above: Order Comment: Waive d Testing in the ED is performed under the ED CLIA certificate #[id number]. Result Comment: ndub ois3 Performed By: #### L [id number] ####[facility] ([employer])[address] [place] [address] Glucose [Mass/Vol] 157 mg/dL High 70-105 [facility] Comment on above: Order Comment: Waive d Testing in the ED is performed under the ED CLIA certificate #[id number]. Result Comment: [email or web address] ois3 Performed By: #### L [id number] ####[facility] ([facility])[address] [address] 30on 09-07-2024 30 Normal [facility] 30 Normal [facility] BASIC METABOLIC PANELon 08-21 Anion gap [Moles/Vol] 9 mmol/L Normal 7-20 [facility] Comment on above: Performed By: #### L [id number] ####[facility] ([facility])[address] [place] [address] Calcium [Mass/Vol] 9.6 mg/dL Normal 8.6-10.3 [facility] Comment on above: Performed By: #### L [id number] ####[facility] ([facility])[address] [place] [address] Chloride [Moles/Vol] 100 mmol/L Normal 98-107 [facility] Comment on above: Performed By: #### L [id number] ####[facility] ([facility])[address] [place] [address] CO2 [Moles/Vol] 32 mmol/L High 21-31 [facility] Comment on above: Performed By: #### L [id number] ####[facility] ([facility])[address] [place] [address] Creatinine [Mass/Vol] 0.78 mg/dL Normal 0.70-1.30 [facility] Comment on above: Performed By: #### L [id number] ####[facility] ([facility])[address] [place] [address] GLOMERULAR FILTRATION RATE ML/MIN/1.73 SQ M.PREDICTED 99.0 mL/min/1.73m*2 Normal >60.0 [facility] Comment on above: Result Comment: [facility]???s estimated glomerular filtration rate (eGFR) will no [...] of individuals. Performed By: #### L [id number] ####[facility] ([facility])[address] [place] [address] Glucose [Mass/Vol] 153 mg/dL High 70-100 [facility] Comment on above: Performed By: #### L [id number] ####[facility] ([facility])[address] [place] [address] Potassium [Moles/Vol] 4.1 mmol/L Normal 3.5-5.1 [facility] Comment on above: Performed By: #### L [id number] ####[facility] ([facility])[address] [place] [address] Sodium [Moles/Vol] 137 mmol/L Normal 136-145 [facility] Comment on above: Performed By: #### L [id number] ####[facility] ([facility])[address] [place] [address] Urea nitrogen [Mass/Vol] 19 mg/dL Normal 7-25 [facility] Comment on above: Performed By: #### L [id number] ####[facility] ([facility])[address] [place] [address] UREA NITROGEN/CREATININE (MASS RATIO) IN SER/PLAS 24.4 Normal [facility] Comment on above: Performed By: #### L [id number] ####[facility] ([facility])[address] [place] [address] CBC WITH AUTO DIFFERENTIALon 09-07-2024 Basophils (Bld) [#/Vol] 0.06 10*3/uL Normal 0.00-0.20 [facility] Comment on above: Performed By: #### L [id number] ####[facility] ([facility])[address] [place] [address] Basophils/100 WBC (Bld) 0.8 % Normal 0.0-1.0 [facility] Comment on above: Performed By: #### L [id number] ####[facility] ([facility])[address] [place] [address] Eosinophils (Bld) [#/Vol] 0.49 10*3/uL Normal 0.00-0.50 [facility] Comment on above: Performed By: #### L [id number] ####[facility] ([facility])[address] [place] [address] Eosinophils/100 WBC (Bld) 6.8 % High 0.0-6.0 [facility] Comment on above: Performed By: #### L [id number] ####[facility] ([facility])[address] [place] [address] Erythrocyte distribution width (RBC) [Ratio] 15.3 % High 11.5-15.0 [facility] Comment on above: Performed By: #### L [id number] ####[facility] ([facility])[address] [place] [address] ERYTHROCYTE MEAN CORPUSCULAR HEMOGLOBIN CONCENTRATION (G/DL) BY AUTOMATED 30.9 g/dL Low 32.0-35.0 [facility] Comment on above: Performed By: #### L [id number] ####[facility] ([facility])[address] [place] [address] Hematocrit (Bld) [Volume fraction] 45.9 % Normal 39.0-55.0 [facility] Comment on above: Performed By: #### L [id number] ####[facility] ([facility])[address] [place] [address] Hemoglobin (Bld) [Mass/Vol] 14.2 g/dL Normal 13.0-17.0 [facility] Comment on above: Performed By: #### L [id number] ####[facility] ([facility])[address] [place] [address] Immature granulocytes (Bld) [#/Vol] 0.04 10*3/uL Normal 0.00-0.20 [facility] Comment on above: Performed By: #### L [id number] ####[facility] ([facility])[address] [place] [address] Immature granulocytes/100 WBC (Bld) 0.6 % Normal 0.0-1.0 [facility] Comment on above: Performed By: #### L [id number] ####[facility] ([facility])[address] [place] [address] Lymphocytes (Bld) [#/Vol] 1.82 10*3/uL Normal 1.20-4.00 [facility] Comment on above: Performed By: #### L [id number] ####[facility] ([facility])[address] [place] [address] Lymphocytes/100 WBC (Bld) 25.3 % Normal 20.0-45.0 [facility] Comment on above: Performed By: #### L [id number] ####[facility] ([facility])[address] [place] [address] MCH (RBC) [Entitic mass] 29.2 pg Normal 27.0-33.0 [facility] Comment on above: Performed By: #### L [id number] ####[facility] ([facility])[address] [place] [address] MCV (RBC) [Entitic vol] 94.4 fL Normal 82.0-98.0 [facility] Comment on above: Performed By: #### L [id number] ####[facility] ([facility])[address] [place] [address] Monocytes (Bld) [#/Vol] 0.74 10*3/uL Normal 0.10-1.00 [facility] Comment on above: Performed By: #### L [id number] ####[facility] ([facility])[address] [place] [address] Monocytes/100 WBC (Bld) 10.3 % Normal 5.0-12.0 [facility] Comment on above: Performed By: #### L [id number] ####[facility] ([facility])[address] [place] [address] Neutrophils (Bld) [#/Vol] 4.04 10*3/uL Normal 1.60-7.60 [facility] Comment on above: Performed By: #### L [id number] ####[facility] ([facility])[address] [address] Neutrophils/100 WBC (Bld) 56.2 % Normal 40.0-72.0 [facility] Comment on above: Performed By: #### L [id number] ####[facility] ([facility])[address] [address] NRBC (PER 100 WBCS) BY AUTOMATED COUNT 0.0 % Normal 0 [facility] Comment on above: Performed By: #### L [id number] ####[facility] ([facility])[address] [place] [address] PLATELETS (10*3/UL) IN BLOOD AUTOMATED COUNT 234 10*3/uL Normal 150-400 [facility] Comment on above: Performed By: #### L [id number] ####[facility] ([facility])[address] [place] [address] RBC (Bld) [#/Vol] 4.86 10*6/uL Normal 4.20-5.70 [facility] Comment on above: Performed By: #### L [id number] ####[facility] ([facility])[address] [address] WBC (Bld) [#/Vol] 7.19 10*3/uL Normal 4.00-10.60 [facility] Comment on above: Performed By: #### L [id number] ####[facility] ([facility])[address] [place] [address] MAGNESIUMon 09-07-2024 Magnesium [Mass/Vol] 1.7 mg/dL Low 1.9-2.7 [facility] Comment on above: Performed By: #### L [id number] ####[facility] ([facility])[address] [place] [address] NURSNOTEon 09-07-2024 NURSNOTE Signed off to Ian engel RN [facility] NURSNOTE HOB up @ 40 degrees, NO c/o of pain, or SOB at this time Urinal at bedside Call light within reach IV INT'd, intact, no redness noted Pulse ox--97% O 2 cont. On pt. Per nasal cannula @ 4 L/min NC Telemetry cont. On pt [facility] NURSNOTE [facility] NURSNOTE Tried to call Elias, pt's brother, no answer, still, at this time, 3rd attempt [facility] NURSNOTE [facility] NURSNOTE Pt's family brought him a hamburger last night, and the pt. Is eating it now. Pt. Encouraged not to eat, since the hamburger has been sitting out all night. Pt. Cont. To eat burger. [facility] NURSNOTE Eyes closed resp. Easy @ 18/min Pulse ox--98% Telemetry cont. On pt [facility] Orders Onlyon 09-07-2024 Orders Only [id number] Tyler Mckinney 1960 M Date Provider Department Center 09/[id number]/[id number], JENN*[facility] [place] [facility] No family history on file [facility] PHOSPHORUSon 09-07-2024 Magnesium [Mass/Vol] 3.5 mg/dL Normal 2.5-5.0 [facility] Comment on above: Performed By: #### L [id number] ####[facility] ([facility])[address] [place] [address] POCT GLUCOSE METER UNSOLICIT ED RESULTSon 09-07-2024 Glucose [Mass/Vol] 200 mg/dL High 70-105 [facility] Comment on above: Order Comment: Waive d Testing in the ED is performed under the ED CLIA certificate #[id number]. Result Comment: droc kol Performed By: #### L [id number] ####[facility] ([facility])[address] [place] [address] Glucose [Mass/Vol] 211 mg/dL High 70-105 [facility] Comment on above: Order Comment: Waive d Testing in the ED is performed under the ED CLIA certificate #[id number]. Result Comment: awul ff3 Performed By: #### L [id number] ####[facility] ([facility])[address] [place] [address] Glucose [Mass/Vol] 298 mg/dL High 70-105 [facility] Comment on above: Order Comment: Waive d Testing in the ED is performed under the ED CLIA certificate #[id number]. Result Comment: awul ff3 Performed By: #### L [id number] ####[facility] ([facility])[address] [place] [address] Glucose [Mass/Vol] 155 mg/dL High 70-105 [facility] Comment on above: Order Comment: Waive d Testing in the ED is performed under the ED CLIA certificate #[id number]. Result Comment: awul ff3 Performed By: #### L [id number] ####[facility] ([facility])[address] [place] [address] 30on 09-06-2024 30 Normal [facility] 30 Normal [facility] BASIC METABOLIC PANELon 08-21 Anion gap [Moles/Vol] 11 mmol/L Normal 7-20 [facility] Comment on above: Performed By: #### L [id number] ####[facility] ([facility])[address] [place] [address] Calcium [Mass/Vol] 9.8 mg/dL Normal 8.6-10.3 [facility] Comment on above: Performed By: #### L [id number] ####[facility] ([facility])[address] [place] [address] Chloride [Moles/Vol] 98 mmol/L Normal 98-107 [facility] Comment on above: Performed By: #### L [id number] ####[facility] ([facility])[address] [place] [address] CO2 [Moles/Vol] 31 mmol/L Normal 21-31 [facility] Comment on above: Performed By: #### L [id number] ####[facility] ([facility])[address] [place] [address] Creatinine [Mass/Vol] 0.90 mg/dL Normal 0.70-1.30 [facility] Comment on above: Performed By: #### L [id number] ####[facility] ([facility])[address] [place] [address] GLOMERULAR FILTRATION RATE ML/MIN/1.73 SQ M.PREDICTED 94.8 mL/min/1.73m*2 Normal >60.0 [facility] Comment on above: Result Comment: [facility]???s estimated glomerular filtration rate (eGFR) will no [...] of individuals. Performed By: #### L [id number] ####[facility] ([facility])[address] [place] [address] Glucose [Mass/Vol] 244 mg/dL High 70-100 [facility] Comment on above: Performed By: #### L [id number] ####[facility] ([facility])[address] [place] [address] Potassium [Moles/Vol] 3.9 mmol/L Normal 3.5-5.1 [facility] Comment on above: Performed By: #### L [id number] ####[facility] ([facility])[address] [place] [address] Sodium [Moles/Vol] 136 mmol/L Normal 136-145 [facility] Comment on above: Performed By: #### L [id number] ####[facility] ([facility])[address] [place] [address] Urea nitrogen [Mass/Vol] 18 mg/dL Normal 7-25 [facility] Comment on above: Performed By: #### L [id number] ####[facility] ([facility])[address] [place] [address] UREA NITROGEN/CREATININE (MASS RATIO) IN SER/PLAS 20.0 Normal [facility] Comment on above: Performed By: #### L [id number] ####[facility] ([facility])[address] [place] [address] CBC WITH AUTO DIFFERENTIALon 09-06-2024 Basophils (Bld) [#/Vol] 0.07 10*3/uL Normal 0.00-0.20 [facility] Comment on above: Performed By: #### L [id number] ####[facility] ([facility])[address] [place] [address] Basophils/100 WBC (Bld) 1.0 % Normal 0.0-1.0 [facility] Comment on above: Performed By: #### L [id number] ####[facility] ([facility])[address] [place] [address] Eosinophils (Bld) [#/Vol] 0.40 10*3/uL Normal 0.00-0.50 [facility] Comment on above: Performed By: #### L [id number] ####[facility] ([facility])[address] [place] [address] Eosinophils/100 WBC (Bld) 5.9 % Normal 0.0-6.0 [facility] Comment on above: Performed By: #### L [id number] ####[facility] ([facility])[address] [place] [address] Erythrocyte distribution width (RBC) [Ratio] 15.2 % High 11.5-15.0 [facility] Comment on above: Performed By: #### L [id number] ####[facility] ([facility])[address] [place] [address] ERYTHROCYTE MEAN CORPUSCULAR HEMOGLOBIN CONCENTRATION (G/DL) BY AUTOMATED 30.7 g/dL Low 32.0-35.0 [facility] Comment on above: Performed By: #### L [id number] ####[facility] ([facility])[address] [place] [address] Hematocrit (Bld) [Volume fraction] 47.3 % Normal 39.0-55.0 [facility] Comment on above: Performed By: #### L [id number] ####[facility] ([facility])[address] [place] [address] Hemoglobin (Bld) [Mass/Vol] 14.5 g/dL Normal 13.0-17.0 [facility] Comment on above: Performed By: #### L [id number] ####[facility] ([facility])[address] [place] [address] Immature granulocytes (Bld) [#/Vol] 0.05 10*3/uL Normal 0.00-0.20 [facility] [facility] Comment on above: Performed By: #### L [id number] ####[facility] (BEAKER)[address] [place] [address] Immature granulocytes/100 WBC (Bld) 0.7 % Normal 0.0-1.0 [facility] Comment on above: Performed By: #### L [id number] ####[facility] (BEAKER)[address] [place] [address] Lymphocytes (Bld) [#/Vol] 1.52 10*3/uL Normal 1.20-4.00 [facility] Comment on above: Performed By: #### L [id number] ####[facility] (BEAKER)[address] [place] [address] Lymphocytes/100 WBC (Bld) 22.5 % Normal 20.0-45.0 [facility] Comment on above: Performed By: #### L [id number] ####[facility] (BEAKER)[address] [place] [address] MCH (RBC) [Entitic mass] 29.1 pg Normal 27.0-33.0 [facility] Comment on above: Performed By: #### L [id number] ####[facility] ([facility])[address] [place] [address] MCV (RBC) [Entitic vol] 95.0 fL Normal 82.0-98.0 [facility] Comment on above: Performed By: #### L [id number] ####[facility] ([facility])[address] [place] [address] Monocytes (Bld) [#/Vol] 0.74 10*3/uL Normal 0.10-1.00 [facility] Comment on above: Performed By: #### L [id number] ####[facility] ([facility])[address] [place] [address] Monocytes/100 WBC (Bld) 10.9 % Normal 5.0-12.0 [facility] Comment on above: Performed By: #### L [id number] ####[facility] ([facility])[address] [place] [address] Neutrophils (Bld) [#/Vol] 3.98 10*3/uL Normal 1.60-7.60 [facility] Comment on above: Performed By: #### L [id number] ####[facility] ([facility])[address] [place] [address] Neutrophils/100 WBC (Bld) 59.0 % Normal 40.0-72.0 [facility] Comment on above: Performed By: #### L [id number] ####[facility] ([facility])[address] [place] [address] NRBC (PER 100 WBCS) BY AUTOMATED COUNT 0.0 % Normal 0 [facility] Comment on above: Performed By: #### L [id number] ####[facility] (BEAKER)[address] [place] [address] PLATELETS (10*3/UL) IN BLOOD AUTOMATED COUNT 251 10*3/uL Normal 150-400 [facility] Comment on above: Performed By: #### L [id number] ####[facility] ([facility])[address] [place] [address] RBC (Bld) [#/Vol] 4.98 10*6/uL Normal 4.20-5.70 [facility] Comment on above: Performed By: #### L [id number] ####[facility] ([facility])[address] [place] [address] WBC (Bld) [#/Vol] 6.76 10*3/uL Normal 4.00-10.60 [facility] Comment on above: Performed By: #### L [id number] ####[facility] ([facility])[address] [place] [address] MAGNESIUMon 09-06-2024 Magnesium [Mass/Vol] 1.6 mg/dL Low 1.9-2.7 [facility] Comment on above: Performed By: #### L [id number] ####[facility] ([facility])[address] [place] [address] NURSNOTEon 09-06-2024 NURSNOTE Signed off to Ian engel RN--with bedside rounding Pt. Cont. To sit up in a chair at bedside Call light within reach Normal [facility] NURSNOTE Normal [facility] NURSNOTE Pt refused to go yeni k to bed at this time Pt. Cont. To sit up in a chair at bedside No c/o of SOB or nausea at this time Resp. Easy @ 18/min Normal [facility] PHOSPHORUSon 09-06-2024 Magnesium [Mass/Vol] 3.4 mg/dL Normal 2.5-5.0 [facility] Comment on above: Performed By: #### L [id number] ####[facility] ([facility])[address] [place] [address] POCT GLUCOSE METER UNSOLICIT ED RESULTSon 09-06-2024 Glucose [Mass/Vol] 255 mg/dL High 70-105 [facility] Comment on above: Order Comment: Waive d Testing in the ED is performed under the ED CLIA certificate #[id number]. Result Comment: [email or web address] Performed By: #### L [id number] ####[facility] (BEAKER)[address] [place] [address] Glucose [Mass/Vol] 208 mg/dL High 70-105 [facility] Comment on above: Order Comment: Waive d Testing in the ED is performed under the ED CLIA certificate #[id number]. Result Comment: [email or web address] Performed By: #### L [id number] ####[facility] (BEAKER)[address] [place] [address] Glucose [Mass/Vol] 173 mg/dL High 70-105 [facility] Comment on above: Order Comment: Waive d Testing in the ED is performed under the ED CLIA certificate #[id number]. Result Comment: [email or web address] Performed By: #### L [id number] ####[facility] ([facility])[address] [place] [address] Glucose [Mass/Vol] 210 mg/dL High 70-105 [facility] Comment on above: Order Comment: Waive d Testing in the ED is performed under the ED CLIA certificate #[id number]. Result Comment: [email or web address] Performed By: #### L [id number] ####[facility] (BEAKER)[address] [place] [address] BASIC METABOLIC PANELon 08-21 Anion gap [Moles/Vol] 8 mmol/L Normal 7-20 [facility] Comment on above: Performed By: #### L [id number] ####[facility] (BEAKER)[address] [place] [address] Calcium [Mass/Vol] 9.9 mg/dL Normal 8.6-10.3 [facility] Comment on above: Performed By: #### L [id number] ####[facility] (BEAKER)[address] [place] [address] Chloride [Moles/Vol] 98 mmol/L Normal 98-107 [facility] Comment on above: Performed By: #### L [id number] ####[facility] ([facility])[address] [place] [address] CO2 [Moles/Vol] 33 mmol/L High 21-31 [facility] Comment on above: Performed By: #### L [id number] ####[facility] ([facility])[address] [place] [address] Creatinine [Mass/Vol] 0.90 mg/dL Normal 0.70-1.30 [facility] Comment on above: Performed By: #### L [id number] ####[facility] ([facility])[address] [place] [address] GLOMERULAR FILTRATION RATE ML/MIN/1.73 SQ M.PREDICTED 94.8 mL/min/1.73m*2 Normal >60.0 [facility] Comment on above: Result Comment: [facility]???s estimated glomerular filtration rate (eGFR) will no [...] of individuals. Performed By: #### L [id number] ####[facility] ([facility])[address] [place] [address] Glucose [Mass/Vol] 142 mg/dL High 70-100 [facility] Comment on above: Performed By: #### L [id number] ####[facility] ([facility])[address] [place] [address] Potassium [Moles/Vol] 4.1 mmol/L Normal 3.5-5.1 [facility] Comment on above: Performed By: #### L [id number] ####[facility] ([facility])[address] [place] [address] Sodium [Moles/Vol] 135 mmol/L Low 136-145 [facility] Comment on above: Performed By: #### L [id number] ####[facility] ([facility])[address] [place] [address] Urea nitrogen [Mass/Vol] 19 mg/dL Normal 7-25 [facility] Comment on above: Performed By: #### L [id number] ####[facility] ([facility])[address] [place] [address] UREA NITROGEN/CREATININE (MASS RATIO) IN SER/PLAS 21.1 Normal [facility] Comment on above: Performed By: #### L [id number] ####[facility] ([facility])[address] [place] [address] CBC WITH AUTO DIFFERENTIALon 09-05-2024 Basophils (Bld) [#/Vol] 0.07 10*3/uL Normal 0.00-0.20 [facility] Comment on above: Performed By: #### L [id number] ####[facility] ([facility])[address] [place] [address] Basophils/100 WBC (Bld) 0.9 % Normal 0.0-1.0 [facility] Comment on above: Performed By: #### L [id number] ####[facility] ([facility])[address] [place] [address] Eosinophils (Bld) [#/Vol] 0.38 10*3/uL Normal 0.00-0.50 [facility] Comment on above: Performed By: #### L [id number] ####[facility] ([facility])[address] [place] [address] Eosinophils/100 WBC (Bld) 5.0 % Normal 0.0-6.0 [facility] Comment on above: Performed By: #### L [id number] ####[facility] ([facility])[address] [place] [address] Erythrocyte distribution width (RBC) [Ratio] 15.2 % High 11.5-15.0 [facility] Comment on above: Performed By: #### L [id number] ####[facility] (BEAKER)[address] [place] [address] ERYTHROCYTE MEAN CORPUSCULAR HEMOGLOBIN CONCENTRATION (G/DL) BY AUTOMATED 31.4 g/dL Low 32.0-35.0 [facility] Comment on above: Performed By: #### L [id number] ####[facility] (BEAKER)[address] [place] [address] Hematocrit (Bld) [Volume fraction] 47.1 % Normal 39.0-55.0 [facility] Comment on above: Performed By: #### L [id number] ####[facility] (BEAKER)[address] [place] [address] Hemoglobin (Bld) [Mass/Vol] 14.8 g/dL Normal 13.0-17.0 [facility] Comment on above: Performed By: #### L [id number] ####[facility] (BEAKER)[address] [place] [address] Immature granulocytes (Bld) [#/Vol] 0.06 10*3/uL Normal 0.00-0.20 [facility] Comment on above: Performed By: #### L [id number] ####[facility] (BEAKER)[address] [place] [address] Immature granulocytes/100 WBC (Bld) 0.8 % Normal 0.0-1.0 [facility] Comment on above: Performed By: #### L [id number] ####[facility] (BEAKER)[address] [place] [address] Lymphocytes (Bld) [#/Vol] 1.99 10*3/uL Normal 1.20-4.00 [facility] Comment on above: Performed By: #### L [id number] ####[facility] (BE[facility]ER)[address] [place] [address] Lymphocytes/100 WBC (Bld) 26.0 % Normal 20.0-45.0 [facility] Comment on above: Performed By: #### L [id number] ####[facility] (BEAKER)[address] [place] [address] MCH (RBC) [Entitic mass] 28.8 pg Normal 27.0-33.0 [facility] Comment on above: Performed By: #### L [id number] ####[facility] ([facility])[address] [place] [address] MCV (RBC) [Entitic vol] 91.6 fL Normal 82.0-98.0 [facility] Comment on above: Performed By: #### L [id number] ####[facility] ([facility])[address] [place] [address] Monocytes (Bld) [#/Vol] 0.77 10*3/uL Normal 0.10-1.00 [facility] Comment on above: Performed By: #### L [id number] ####[facility] ([facility])[address] [place] [address] Monocytes/100 WBC (Bld) 10.1 % Normal 5.0-12.0 [facility] Comment on above: Performed By: #### L [id number] ####[facility] (BEAKER)[address] [place] [address] Neutrophils (Bld) [#/Vol] 4.39 10*3/uL Normal 1.60-7.60 [facility] Comment on above: Performed By: #### L [id number] ####[facility] (BEAKER)[address] [place] [address] Neutrophils/100 WBC (Bld) 57.2 % Normal 40.0-72.0 [facility] Comment on above: Performed By: #### L [id number] ####[facility] (BEAKER)[address] [place] [address] NRBC (PER 100 WBCS) BY AUTOMATED COUNT 0.0 % Normal 0 [facility] Comment on above: Performed By: #### L [id number] ####[facility] (BEAKER)[address] [place] [address] PLATELETS (10*3/UL) IN BLOOD AUTOMATED COUNT 274 10*3/uL Normal 150-400 [facility] Comment on above: Performed By: #### L [id number] ####[facility] ([facility])[address] [place] [address] RBC (Bld) [#/Vol] 5.14 10*6/uL Normal 4.20-5.70 [facility] Comment on above: Performed By: #### L [id number] ####[facility] ([facility])[address] [place] [address] WBC (Bld) [#/Vol] 7.66 10*3/uL Normal 4.00-10.60 [facility] Comment on above: Performed By: #### L [id number] ####[facility] ([facility])[address] [place] [address] MAGNESIUMon 09-05-2024 Magnesium [Mass/Vol] 1.6 mg/dL Low 1.9-2.7 [facility] Comment on above: Performed By: #### L [id number] ####[facility] ([facility])[address] [place] [address] PHOSPHORUSon 09-05-2024 Magnesium [Mass/Vol] 2.8 mg/dL Normal 2.5-5.0 [facility] Comment on above: Performed By: #### L [id number] ####[facility] ([facility])[address] [place] [address] POCT GLUCOSE METER UNSOLICIT ED RESULTSon 09-05-2024 Glucose [Mass/Vol] 221 mg/dL High 70-105 [facility] Comment on above: Order Comment: Waive d Testing in the ED is performed under the ED CLIA certificate #[id number]. Result Comment: [email or web address] Performed By: #### L [id number] ####[facility] ([facility])[address] [place] [address] Glucose [Mass/Vol] 204 mg/dL High 70-105 [facility] Comment on above: Order Comment: Waive d Testing in the ED is performed under the ED CLIA certificate #[id number]. Result Comment: [email or web address] Performed By: #### L [id number] ####[facility] (BEAKER)[address] [place] [address] Glucose [Mass/Vol] 222 mg/dL High 70-105 [facility] Comment on above: Order Comment: Waive d Testing in the ED is performed under the ED CLIA certificate #[id number]. Result Comment: [email or web address] Performed By: #### L [id number] ####[facility] ([facility])[address] [place] [address] Glucose [Mass/Vol] 141 mg/dL High 70-105 [facility] Comment on above: Order Comment: Waive d Testing in the ED is performed under the ED CLIA certificate #[id number]. Result Comment: [email or web address] Performed By: #### L [id number] ####[facility] ([facility])[address] [place] [address] 30on 09-04-2024 30 Normal [facility] BASIC METABOLIC PANELon 08-21 Anion gap [Moles/Vol] 7 mmol/L Normal 7-20 [facility] Comment on above: Performed By: #### L [id number] ####[facility] (BEAKER)[address] [place] [address] Calcium [Mass/Vol] 9.6 mg/dL Normal 8.6-10.3 [facility] Comment on above: Performed By: #### L [id number] ####[facility] (BEAKER)[address] [place] [address] Chloride [Moles/Vol] 98 mmol/L Normal 98-107 [facility] Comment on above: Performed By: #### L [id number] ####[facility] (BEAKER)[address] [place] [address] CO2 [Moles/Vol] 35 mmol/L High 21-31 [facility] Comment on above: Performed By: #### L [id number] ####[facility] ([facility])[address] [place] [address] Creatinine [Mass/Vol] 0.88 mg/dL Normal 0.70-1.30 [facility] Comment on above: Performed By: #### L [id number] ####[facility] ([facility])[address] [place] [address] GLOMERULAR FILTRATION RATE ML/MIN/1.73 SQ M.PREDICTED 95.4 mL/min/1.73m*2 Normal >60.0 [facility] Comment on above: Result Comment: [facility]???s estimated glomerular filtration rate (eGFR) will no [...] of individuals. Performed By: #### L [id number] ####[facility] ([facility])[address] [place] [address] Glucose [Mass/Vol] 155 mg/dL High 70-100 [facility] Comment on above: Performed By: #### L [id number] ####[facility] ([facility])[address] [place] [address] Potassium [Moles/Vol] 4.3 mmol/L Normal 3.5-5.1 [facility] Comment on above: Performed By: #### L [id number] ####[facility] ([facility])[address] [place] [address] Sodium [Moles/Vol] 136 mmol/L Normal 136-145 [facility] Comment on above: Performed By: #### L [id number] ####[facility] (BEAKER)[address] [address] Urea nitrogen [Mass/Vol] 22 mg/dL Normal 7-25 [facility] Comment on above: Performed By: #### L [id number] ####[facility] (BEAKER)[address] [address] UREA NITROGEN/CREATININE (MASS RATIO) IN SER/PLAS 25.0 Normal [facility] Comment on above: Performed By: #### L [id number] ####[facility] ([facility])[address] [address] CBC WITH AUTO DIFFERENTIALon 09-04-2024 Basophils (Bld) [#/Vol] 0.06 10*3/uL Normal 0.00-0.20 [facility] Comment on above: Performed By: #### L [id number] ####[facility] ([facility])[address] [address] Basophils/100 WBC (Bld) 1.0 % Normal 0.0-1.0 [facility] Comment on above: Performed By: #### L [id number] ####[facility] (BEAKER)[address] [address] Eosinophils (Bld) [#/Vol] 0.38 10*3/uL Normal 0.00-0.50 [facility] Comment on above: Performed By: #### L [id number] ####[facility] (BEAKER)[address] [address] Eosinophils/100 WBC (Bld) 6.1 % High 0.0-6.0 [facility] Comment on above: Performed By: #### L [id number] ####[facility] (BEAKER)[address] [place] [address] Erythrocyte distribution width (RBC) [Ratio] 15.2 % High 11.5-15.0 [facility] Comment on above: Performed By: #### L [id number] ####[facility] (BEAKER)[address] [place] [address] ERYTHROCYTE MEAN CORPUSCULAR HEMOGLOBIN CONCENTRATION (G/DL) BY AUTOMATED 30.6 g/dL Low 32.0-35.0 [facility] Comment on above: Performed By: #### L [id number] ####[facility] ([facility])[address] [place] [address] Hematocrit (Bld) [Volume fraction] 48.4 % Normal 39.0-55.0 [facility] Comment on above: Performed By: #### L [id number] ####[facility] ([facility])[address] [place] [address] Hemoglobin (Bld) [Mass/Vol] 14.8 g/dL Normal 13.0-17.0 [facility] Comment on above: Performed By: #### L [id number] ####[facility] (BEAKER)[address] [place] [address] Immature granulocytes (Bld) [#/Vol] 0.04 10*3/uL Normal 0.00-0.20 [facility] Comment on above: Performed By: #### L [id number] ####[facility] (BEAKER)[address] [place] [address] Immature granulocytes/100 WBC (Bld) 0.6 % Normal 0.0-1.0 [facility] Comment on above: Performed By: #### L [id number] ####[facility] (BEAKER)[address] [place] [address] Lymphocytes (Bld) [#/Vol] 1.68 10*3/uL Normal 1.20-4.00 [facility] Comment on above: Performed By: #### L [id number] ####[facility] (BEAKER)[address] [place] [address] Lymphocytes/100 WBC (Bld) 27.1 % Normal 20.0-45.0 [facility] Comment on above: Performed By: #### L [id number] ####[facility] (BEAKER)[address] [place] [address] MCH (RBC) [Entitic mass] 28.6 pg Normal 27.0-33.0 [facility] Comment on above: Performed By: #### L [id number] ####[facility] ([facility])[address] [place] [address] MCV (RBC) [Entitic vol] 93.6 fL Normal 82.0-98.0 [facility] Comment on above: Performed By: #### L [id number] ####[facility] ([facility])[address] [place] [address] Monocytes (Bld) [#/Vol] 0.74 10*3/uL Normal 0.10-1.00 [facility] Comment on above: Performed By: #### L [id number] ####[facility] ([facility])[address] [place] [address] Monocytes/100 WBC (Bld) 11.9 % Normal 5.0-12.0 [facility] Comment on above: Performed By: #### L [id number] ####[facility] ([facility])[address] [place] [address] Neutrophils (Bld) [#/Vol] 3.31 10*3/uL Normal 1.60-7.60 [facility] Comment on above: Performed By: #### L [id number] ####[facility] ([facility])[address] [place] [address] Neutrophils/100 WBC (Bld) 53.3 % Normal 40.0-72.0 [facility] Comment on above: Performed By: #### L [id number] ####[facility] ([facility])[address] [place] [address] NRBC (PER 100 WBCS) BY AUTOMATED COUNT 0.0 % Normal 0 [facility] Comment on above: Performed By: #### L [id number] ####[facility] ([facility])[address] [place] [address] PLATELETS (10*3/UL) IN BLOOD AUTOMATED COUNT 254 10*3/uL Normal 150-400 [facility] Comment on above: Performed By: #### L [id number] ####[facility] ([facility])[address] [place] [address] RBC (Bld) [#/Vol] 5.17 10*6/uL Normal 4.20-5.70 [facility] Comment on above: Performed By: #### L [id number] ####[facility] ([facility])[address] [place] [address] WBC (Bld) [#/Vol] 6.21 10*3/uL Normal 4.00-10.60 [facility] Comment on above: Performed By: #### L [id number] ####[facility] ([facility])[address] [place] [address] POCT GLUCOSE METER UNSOLICIT ED RESULTSon 09-04-2024 Glucose [Mass/Vol] 219 mg/dL High 70-105 [facility] Comment on above: Order Comment: Waive d Testing in the ED is performed under the ED CLIA certificate #[id number]. Result Comment: [email or web address] Performed By: #### L [id number] ####[facility] ([facility])[address] [place] [address] Glucose [Mass/Vol] 156 mg/dL High 70-105 [facility] Comment on above: Order Comment: Waive d Testing in the ED is performed under the ED CLIA certificate #[id number]. Result Comment: [email or web address] Performed By: #### L [id number] ####[facility] ([facility])[address] [place] [address] Glucose [Mass/Vol] 190 mg/dL High 70-105 [facility] Comment on above: Order Comment: Waive d Testing in the ED is performed under the ED CLIA certificate #[id number]. Result Comment: [email or web address] Performed By: #### L [id number] ####[facility] ([facility])[address] [place] [address] Glucose [Mass/Vol] 149 mg/dL High 70-105 [facility] Comment on above: Order Comment: Waive d Testing in the ED is performed under the ED CLIA certificate #[id number]. Result Comment: [email or web address] [id number] Performed By: #### L [id number] ####[facility] ([facility])[address] [place] [address] 30on 09-03-2024 30 Normal [facility] BASIC METABOLIC PANELon 08-21 Anion gap [Moles/Vol] 11 mmol/L Normal 7-20 [facility] Comment on above: Performed By: #### L [id number] ####[facility] ([facility])[address] [place] [address] Calcium [Mass/Vol] 9.7 mg/dL Normal 8.6-10.3 [facility] Comment on above: Performed By: #### L [id number] ####[facility] ([facility])[address] [place] [address] Chloride [Moles/Vol] 96 mmol/L Low 98-107 [facility] Comment on above: Performed By: #### L [id number] ####[facility] ([facility])[address] [place] [address] CO2 [Moles/Vol] 33 mmol/L High 21-31 [facility] Comment on above: Performed By: #### L [id number] ####[facility] ([facility])[address] [place] [address] Creatinine [Mass/Vol] 0.87 mg/dL Normal 0.70-1.30 [facility] Comment on above: Performed By: #### L [id number] ####[facility] ([facility])[address] [place] [address] GLOMERULAR FILTRATION RATE ML/MIN/1.73 SQ M.PREDICTED 95.8 mL/min/1.73m*2 Normal >60.0 [facility] Comment on above: Result Comment: [facility]???s estimated glomerular filtration rate (eGFR) will no [...] of individuals. Performed By: #### L [id number] ####[facility] ([facility])[address] [place] [address] Glucose [Mass/Vol] 161 mg/dL High 70-100 [facility] Comment on above: Performed By: #### L [id number] ####[facility] ([facility])[address] [place] [address] Potassium [Moles/Vol] 4.2 mmol/L Normal 3.5-5.1 [facility] Comment on above: Performed By: #### L [id number] ####[facility] ([facility])[address] [place] [address] Sodium [Moles/Vol] 136 mmol/L Normal 136-145 [facility] Comment on above: Performed By: #### L [id number] ####[facility] ([facility])[address] [place] [address] Urea nitrogen [Mass/Vol] 23 mg/dL Normal 7-25 [facility] Comment on above: Performed By: #### L [id number] ####[facility] ([facility])[address] [place] [address] UREA NITROGEN/CREATININE (MASS RATIO) IN SER/PLAS 26.4 Normal [facility] Comment on above: Performed By: #### L [id number] ####[facility] ([facility])[address] [place] [address] CBC WITH AUTO DIFFERENTIALon 09-03-2024 Basophils (Bld) [#/Vol] 0.07 10*3/uL Normal 0.00-0.20 [facility] Comment on above: Performed By: #### L [id number] ####[facility] ([facility])[address] [place] [address] Basophils/100 WBC (Bld) 0.8 % Normal 0.0-1.0 [facility] Comment on above: Performed By: #### L [id number] ####[facility] ([facility])[address] [place] [address] Eosinophils (Bld) [#/Vol] 0.40 10*3/uL Normal 0.00-0.50 [facility] Comment on above: Performed By: #### L [id number] ####[facility] ([facility])[address] [place] [address] Eosinophils/100 WBC (Bld) 4.8 % Normal 0.0-6.0 [facility] Comment on above: Performed By: #### L [id number] ####[facility] ([facility])[address] [place] [address] Erythrocyte distribution width (RBC) [Ratio] 15.3 % High 11.5-15.0 [facility] Comment on above: Performed By: #### L [id number] ####[facility] ([facility])[address] [place] [address] ERYTHROCYTE MEAN CORPUSCULAR HEMOGLOBIN CONCENTRATION (G/DL) BY AUTOMATED 31.8 g/dL Low 32.0-35.0 [facility] Comment on above: Performed By: #### L [id number] ####[facility] ([facility])[address] [place] [address] Hematocrit (Bld) [Volume fraction] 46.8 % Normal 39.0-55.0 [facility] Comment on above: Performed By: #### L [id number] ####[facility] ([facility])[address] [place] [address] Hemoglobin (Bld) [Mass/Vol] 14.9 g/dL Normal 13.0-17.0 [facility] Comment on above: Performed By: #### L [id number] ####[facility] ([facility])[address] [place] [address] Immature granulocytes (Bld) [#/Vol] 0.05 10*3/uL Normal 0.00-0.20 [facility] Comment on above: Performed By: #### L [id number] ####[facility] ([facility])[address] [place] [address] Immature granulocytes/100 WBC (Bld) 0.6 % Normal 0.0-1.0 [facility] Comment on above: Performed By: #### L [id number] ####[facility] ([facility])[address] [place] [address] Lymphocytes (Bld) [#/Vol] 1.73 10*3/uL Normal 1.20-4.00 [facility] Comment on above: Performed By: #### L [id number] ####[facility] ([facility])[address] [facility] [place] [address] Lymphocytes/100 WBC (Bld) 20.9 % Normal 20.0-45.0 [facility] Comment on above: Performed By: #### L [id number] ####[facility] ([facility])[address] [place] [address] MCH (RBC) [Entitic mass] 29.3 pg Normal 27.0-33.0 [facility] Comment on above: Performed By: #### L [id number] ####[facility] ([facility])[address] [place] [address] MCV (RBC) [Entitic vol] 91.9 fL Normal 82.0-98.0 [facility] Comment on above: Performed By: #### L [id number] ####[facility] ([facility])[address] [facility] [place] [address] Monocytes (Bld) [#/Vol] 0.96 10*3/uL Normal 0.10-1.00 [facility] Comment on above: Performed By: #### L [id number] ####[facility] ([facility])[address] [place] [address] Monocytes/100 WBC (Bld) 11.6 % Normal 5.0-12.0 [facility] Comment on above: Performed By: #### L [id number] ####[facility] ([facility])[address] [place] [address] Neutrophils (Bld) [#/Vol] 5.06 10*3/uL Normal 1.60-7.60 [facility] Comment on above: Performed By: #### L [id number] ####[facility] ([facility])[address] [place] [address] Neutrophils/100 WBC (Bld) 61.3 % Normal 40.0-72.0 [facility] Comment on above: Performed By: #### L [id number] ####[facility] ([facility])[address] [address] NRBC (PER 100 WBCS) BY AUTOMATED COUNT 0.0 % Normal 0 [facility] Comment on above: Performed By: #### L [id number] ####[facility] ([facility])[address] [place] [address] PLATELETS (10*3/UL) IN BLOOD AUTOMATED COUNT 264 10*3/uL Normal 150-400 [facility] Comment on above: Performed By: #### L [id number] ####[facility] ([facility])[address] [address] RBC (Bld) [#/Vol] 5.09 10*6/uL Normal 4.20-5.70 [facility] Comment on above: Performed By: #### L [id number] ####[facility] ([facility])[address] [address] WBC (Bld) [#/Vol] 8.27 10*3/uL Normal 4.00-10.60 [facility] Comment on above: Performed By: #### L [id number] ####[facility] ([facility])[address] [place] [address] MAGNESIUMon 09-03-2024 Magnesium [Mass/Vol] 1.6 mg/dL Low 1.9-2.7 [facility] Comment on above: Performed By: #### L [id number] ####[facility] ([facility])[address] [place] [address] PHOSPHORUSon 09-03-2024 Magnesium [Mass/Vol] 3.3 mg/dL Normal 2.5-5.0 [facility] Comment on above: Performed By: #### L [id number] ####[facility] ([facility])[address] [place] [address] POCT GLUCOSE METER UNSOLICIT ED RESULTSon 09-03-2024 Glucose [Mass/Vol] 168 mg/dL High 70-105 [facility] Comment on above: Order Comment: Waive d Testing in the ED is performed under the ED CLIA certificate #[id number]. Result Comment: [email or web address] pp Performed By: #### L [id number] ####[facility] ([facility])[address] [place] [address] Glucose [Mass/Vol] 184 mg/dL High 70-105 [facility] Comment on above: Order Comment: Waive d Testing in the ED is performed under the ED CLIA certificate #[id number]. Result Comment: [email or web address] [id number] Performed By: #### L [id number] ####[facility] ([facility])[address] [place] [address] Glucose [Mass/Vol] 205 mg/dL High 70-105 [facility] Comment on above: Order Comment: Waive d Testing in the ED is performed under the ED CLIA certificate #[id number]. Result Comment: [email or web address] [id number] Performed By: #### L [id number] ####[facility] ([facility])[address] [place] [address] Glucose [Mass/Vol] 145 mg/dL High 70-105 [facility] Comment on above: Order Comment: Waive d Testing in the ED is performed under the ED CLIA certificate #[id number]. Result Comment: [email or web address] [email or web address] Performed By: #### L [id number] ####[facility] ([facility])[address] [place] [address] 30on 09-02-2024 30 Normal [facility] BASIC METABOLIC PANELon 08-21 Anion gap [Moles/Vol] 8 mmol/L Normal 7-20 [facility] Comment on above: Performed By: #### L [id number] ####[facility] ([facility])[address] [address] Calcium [Mass/Vol] 9.5 mg/dL Normal 8.6-10.3 [facility] Comment on above: Performed By: #### L [id number] ####[facility] ([facility])[address] [place] [address] Chloride [Moles/Vol] 99 mmol/L Normal 98-107 [facility] Comment on above: Performed By: #### L [id number] ####[facility] ([facility])[address] [place] [address] CO2 [Moles/Vol] 37 mmol/L High 21-31 [facility] Comment on above: Performed By: #### L [id number] ####[facility] ([facility])[address] [place] [address] Creatinine [Mass/Vol] 0.77 mg/dL Normal 0.70-1.30 [facility] Comment on above: Performed By: #### L [id number] ####[facility] ([facility])[address] [place] [address] GLOMERULAR FILTRATION RATE ML/MIN/1.73 SQ M.PREDICTED 99.4 mL/min/1.73m*2 Normal >60.0 [facility] Comment on above: Result Comment: [facility]???s estimated glomerular filtration rate (eGFR) will no [...] of individuals. Performed By: #### L [id number] ####[facility] ([facility])[address] [place] [address] Glucose [Mass/Vol] 160 mg/dL High 70-100 [facility] Comment on above: Performed By: #### L [id number] ####[facility] ([facility])[address] [place] [address] Potassium [Moles/Vol] 4.1 mmol/L Normal 3.5-5.1 [facility] Comment on above: Performed By: #### L [id number] ####[facility] ([facility])[address] [place] [address] Sodium [Moles/Vol] 140 mmol/L Normal 136-145 [facility] Comment on above: Performed By: #### L [id number] ####[facility] ([facility])[address] [place] [address] Urea nitrogen [Mass/Vol] 16 mg/dL Normal 7-25 [facility] Comment on above: Performed By: #### L [id number] ####[facility] ([facility])[address] [place] [address] UREA NITROGEN/CREATININE (MASS RATIO) IN SER/PLAS 20.8 Normal [facility] Comment on above: Performed By: #### L [id number] ####[facility] ([facility])[address] [place] [address] CBC WITH AUTO DIFFERENTIALon 09-02-2024 Basophils (Bld) [#/Vol] 0.07 10*3/uL Normal 0.00-0.20 [facility] Comment on above: Performed By: #### L [id number] ####[facility] ([facility])[address] [place] [address] Basophils/100 WBC (Bld) 1.0 % Normal 0.0-1.0 [facility] Comment on above: Performed By: #### L [id number] ####[facility] ([facility])[address] [place] [address] Eosinophils (Bld) [#/Vol] 0.34 10*3/uL Normal 0.00-0.50 [facility] Comment on above: Performed By: #### L [id number] ####[facility] ([facility])[address] [place] [address] Eosinophils/100 WBC (Bld) 5.0 % Normal 0.0-6.0 [facility] Comment on above: Performed By: #### L [id number] ####[facility] ([facility])[address] [place] [address] Erythrocyte distribution width (RBC) [Ratio] 15.1 % High 11.5-15.0 [facility] Comment on above: Performed By: #### L [id number] ####[facility] ([facility])[address] [place] [address] ERYTHROCYTE MEAN CORPUSCULAR HEMOGLOBIN CONCENTRATION (G/DL) BY AUTOMATED 31.0 g/dL Low 32.0-35.0 [facility] Comment on above: Performed By: #### L [id number] ####[facility] ([facility])[address] [place] [address] Hematocrit (Bld) [Volume fraction] 46.2 % Normal 39.0-55.0 [facility] Comment on above: Performed By: #### L [id number] ####[facility] ([facility])[address] [place] [address] Hemoglobin (Bld) [Mass/Vol] 14.3 g/dL Normal 13.0-17.0 [facility] Comment on above: Performed By: #### L [id number] ####[facility] ([facility])[address] [place] [address] Immature granulocytes (Bld) [#/Vol] 0.04 10*3/uL Normal 0.00-0.20 [facility] Comment on above: Performed By: #### L [id number] ####[facility] ([facility])[address] [place] [address] Immature granulocytes/100 WBC (Bld) 0.6 % Normal 0.0-1.0 [facility] Comment on above: Performed By: #### L [id number] ####[facility] ([facility])[address] [place] [address] Lymphocytes (Bld) [#/Vol] 1.60 10*3/uL Normal 1.20-4.00 [facility] Comment on above: Performed By: #### L [id number] ####[facility] ([facility])[address] [place] [address] Lymphocytes/100 WBC (Bld) 23.7 % Normal 20.0-45.0 [facility] Comment on above: Performed By: #### L [id number] ####[facility] ([facility])[address] [place] [address] MCH (RBC) [Entitic mass] 28.8 pg Normal 27.0-33.0 [facility] Comment on above: Performed By: #### L [id number] ####[facility] ([facility])[address] [place] [address] MCV (RBC) [Entitic vol] 93.1 fL Normal 82.0-98.0 [facility] Comment on above: Performed By: #### L [id number] ####[facility] ([facility])[address] [place] [address] Monocytes (Bld) [#/Vol] 0.86 10*3/uL Normal 0.10-1.00 [facility] Comment on above: Performed By: #### L [id number] ####[facility] ([facility])[address] [place] [address] Monocytes/100 WBC (Bld) 12.8 % High 5.0-12.0 [facility] Comment on above: Performed By: #### L [id number] ####[facility] ([facility])[address] [place] [address] Neutrophils (Bld) [#/Vol] 3.83 10*3/uL Normal 1.60-7.60 [facility] Comment on above: Performed By: #### L [id number] ####[facility] ([facility])[address] [address] Neutrophils/100 WBC (Bld) 56.9 % Normal 40.0-72.0 [facility] Comment on above: Performed By: #### L [id number] ####[facility] ([facility])[address] [address] NRBC (PER 100 WBCS) BY AUTOMATED COUNT 0.0 % Normal 0 [facility] Comment on above: Performed By: #### L [id number] ####[facility] ([facility])[address] [address] PLATELETS (10*3/UL) IN BLOOD AUTOMATED COUNT 264 10*3/uL Normal 150-400 [facility] Comment on above: Performed By: #### L [id number] ####[facility] ([facility])[address] [address] RBC (Bld) [#/Vol] 4.96 10*6/uL Normal 4.20-5.70 [facility] Comment on above: Performed By: #### L [id number] ####[facility] ([facility])[address] [address] WBC (Bld) [#/Vol] 6.74 10*3/uL Normal 4.00-10.60 [facility] Comment on above: Performed By: #### L [id number] ####[facility] ([facility])[address] [place] [address] NURSNOTEon 09-02-2024 NURSNOTE Normal [facility] NURSNOTE Normal [facility] PHOSPHORUSon 09-02-2024 Magnesium [Mass/Vol] 3.1 mg/dL Normal 2.5-5.0 [facility] Comment on above: Performed By: #### L [id number] ####[facility] ([employer])[address] [place] [address] POCT GLUCOSE METER UNSOLICIT ED RESULTSon 09-02-2024 Glucose [Mass/Vol] 289 mg/dL High 70-105 [facility] Comment on above: Order Comment: Waive d Testing in the ED is performed under the ED CLIA certificate #[id number]. Result Comment: [email or web address] Performed By: #### L [id number] ####[facility] ([facility])[address] [place] [address] Glucose [Mass/Vol] 260 mg/dL High 70-105 [facility] Comment on above: Order Comment: Waive d Testing in the ED is performed under the ED CLIA certificate #[id number]. Result Comment: [email or web address] cad Performed By: #### L [id number] ####[facility] ([facility])[address] [place] [address] Glucose [Mass/Vol] 204 mg/dL High 70-105 [facility] Comment on above: Order Comment: Waive d Testing in the ED is performed under the ED CLIA certificate #[id number]. Result Comment: [email or web address] cad Performed By: #### L [id number] ####[facility] ([facility])[address] [place] [address] Glucose [Mass/Vol] 166 mg/dL High 70-105 [facility] Comment on above: Order Comment: Waive d Testing in the ED is performed under the ED CLIA certificate #[id number]. Result Comment: [email or web address] cad Performed By: #### L [id number] ####[facility] ([facility])[address] [place] [address] 30on 09-01-2024 30 Normal [facility] BASIC METABOLIC PANELon 08-21 Anion gap [Moles/Vol] 7 mmol/L Normal 7-20 [facility] Comment on above: Performed By: #### L [id number] ####[facility] ([facility])[address] [place] [address] Calcium [Mass/Vol] 9.1 mg/dL Normal 8.6-10.3 [facility] Comment on above: Performed By: #### L [id number] ####[facility] ([facility])[address] [place] [address] Chloride [Moles/Vol] 98 mmol/L Normal 98-107 [facility] Comment on above: Performed By: #### L [id number] ####[facility] ([facility])[address] [place] [address] CO2 [Moles/Vol] 36 mmol/L High 21-31 [facility] Comment on above: Performed By: #### L [id number] ####[facility] ([facility])[address] [place] [address] Creatinine [Mass/Vol] 0.84 mg/dL Normal 0.70-1.30 [facility] Comment on above: Performed By: #### L [id number] ####[facility] ([facility])[address] [place] [address] GLOMERULAR FILTRATION RATE ML/MIN/1.73 SQ M.PREDICTED 96.8 mL/min/1.73m*2 Normal >60.0 [facility] Comment on above: Result Comment: [facility]???s estimated glomerular filtration rate (eGFR) will no [...] of individuals. Performed By: #### L [id number] ####[facility] ([facility])[address] [place] [address] Glucose [Mass/Vol] 190 mg/dL High 70-100 [facility] Comment on above: Performed By: #### L [id number] ####[facility] ([facility] [place] [address] Potassium [Moles/Vol] 4.1 mmol/L Normal 3.5-5.1 [facility] Comment on above: Performed By: #### L [id number] ####[facility] ([facility])[address] [place] [address] Sodium [Moles/Vol] 137 mmol/L Normal 136-145 [facility] Comment on above: Performed By: #### L [id number] ####[facility] ([facility])[address] [place] [address] Urea nitrogen [Mass/Vol] 18 mg/dL Normal 7-25 [facility] Comment on above: Performed By: #### L [id number] ####[facility] ([facility])[address] [place] [address] UREA NITROGEN/CREATININE (MASS RATIO) IN SER/PLAS 21.4 Normal [facility] Comment on above: Performed By: #### L [id number] ####[facility] ([facility])[address] [place] [address] CBC WITH AUTO DIFFERENTIALon 09-01-2024 Basophils (Bld) [#/Vol] 0.07 10*3/uL Normal 0.00-0.20 [facility] Comment on above: Performed By: #### L [id number] ####[facility] ([facility])[address] [place] [address] Basophils/100 WBC (Bld) 1.0 % Normal 0.0-1.0 [facility] Comment on above: Performed By: #### L [id number] ####[facility] ([facility])[address] [place] [address] Eosinophils (Bld) [#/Vol] 0.37 10*3/uL Normal 0.00-0.50 [facility] Comment on above: Performed By: #### L [id number] ####[facility] ([facility])[address] [place] [address] Eosinophils/100 WBC (Bld) 5.1 % Normal 0.0-6.0 [facility] Comment on above: Performed By: #### L [id number] ####[facility] ([facility])[address] [place] [address] Erythrocyte distribution width (RBC) [Ratio] 15.1 % High 11.5-15.0 [facility] Comment on above: Performed By: #### L [id number] ####[facility] ([facility])[address] [place] [address] ERYTHROCYTE MEAN CORPUSCULAR HEMOGLOBIN CONCENTRATION (G/DL) BY AUTOMATED 31.3 g/dL Low 32.0-35.0 [facility] Comment on above: Performed By: #### L [id number] ####[facility] ([facility])[address] [place] [address] Hematocrit (Bld) [Volume fraction] 46.3 % Normal 39.0-55.0 [facility] Comment on above: Performed By: #### L [id number] ####[facility] ([facility])[address] [place] [address] Hemoglobin (Bld) [Mass/Vol] 14.5 g/dL Normal 13.0-17.0 [facility] Comment on above: Performed By: #### L [id number] ####[facility] ([facility])[address] [place] [address] Immature granulocytes (Bld) [#/Vol] 0.04 10*3/uL Normal 0.00-0.20 [facility] Comment on above: Performed By: #### L [id number] ####[facility] ([facility])[address] [place] [address] Immature granulocytes/100 WBC (Bld) 0.6 % Normal 0.0-1.0 [facility] Comment on above: Performed By: #### L [id number] ####[facility] ([facility])[address] [place] [address] Lymphocytes (Bld) [#/Vol] 1.46 10*3/uL Normal 1.20-4.00 [facility] Comment on above: Performed By: #### L [id number] ####[facility] ([facility])[address] [place] [address] Lymphocytes/100 WBC (Bld) 20.2 % Normal 20.0-45.0 [facility] Comment on above: Performed By: #### L [id number] ####[facility] ([facility])[address] [place] [address] MCH (RBC) [Entitic mass] 29.1 pg Normal 27.0-33.0 [facility] Comment on above: Performed By: #### L [id number] ####[facility] ([facility])[address] [place] [address] MCV (RBC) [Entitic vol] 92.8 fL Normal 82.0-98.0 [facility] Comment on above: Performed By: #### L [id number] ####[facility] ([facility])[address] [place] [address] Monocytes (Bld) [#/Vol] 0.85 10*3/uL Normal 0.10-1.00 [facility] Comment on above: Performed By: #### L [id number] ####[facility] ([facility])[address] [place] [address] Monocytes/100 WBC (Bld) 11.8 % Normal 5.0-12.0 [facility] Comment on above: Performed By: #### L [id number] ####[facility] ([facility])[address] [place] [address] Neutrophils (Bld) [#/Vol] 4.43 10*3/uL Normal 1.60-7.60 [facility] Comment on above: Performed By: #### L [id number] ####[facility] ([facility])[address] [place] [address] Neutrophils/100 WBC (Bld) 61.3 % Normal 40.0-72.0 [facility] Comment on above: Performed By: #### L [id number] ####[facility] ([facility])[address] [place] [address] NRBC (PER 100 WBCS) BY AUTOMATED COUNT 0.0 % Normal 0 [facility] Comment on above: Performed By: #### L [id number] ####[facility] ([facility])[address] [place] [address] PLATELETS (10*3/UL) IN BLOOD AUTOMATED COUNT 268 10*3/uL Normal 150-400 [facility] Comment on above: Performed By: #### L [id number] ####[facility] ([facility])[address] [place] [address] RBC (Bld) [#/Vol] 4.99 10*6/uL Normal 4.20-5.70 [facility] Comment on above: Performed By: #### L [id number] ####[facility] ([facility])[address] [place] [address] WBC (Bld) [#/Vol] 7.22 10*3/uL Normal 4.00-10.60 [facility] Comment on above: Performed By: #### L [id number] ####[facility] ([facility])[address] [place] [address] MAGNESIUMon 09-01-2024 Magnesium [Mass/Vol] 1.8 mg/dL Low 1.9-2.7 [facility] Comment on above: Performed By: #### L [id number] ####[facility] ([facility])[address] [place] [address] POCT GLUCOSE METER UNSOLICIT ED RESULTSon 09-01-2024 Glucose [Mass/Vol] 225 mg/dL High 70-105 [facility] Comment on above: Order Comment: Waive d Testing in the ED is performed under the ED CLIA certificate #[id number]. Result Comment: [email or web address] Performed By: #### L [id number] ####[facility] ([facility])[address] [place] [address] Glucose [Mass/Vol] 181 mg/dL High 70-105 [facility] Comment on above: Order Comment: Waive d Testing in the ED is performed under the ED CLIA certificate #[id number]. Result Comment: [email or web address] Performed By: #### L [id number] ####[facility] ([facility])[address] [place] [address] Glucose [Mass/Vol] 209 mg/dL High 70-105 [facility] Comment on above: Order Comment: Waive d Testing in the ED is performed under the ED CLIA certificate #[id number]. Result Comment: [email or web address] Performed By: #### L [id number] ####[facility] ([facility])[address] [place] [address] Glucose [Mass/Vol] 181 mg/dL High 70-105 [facility] Comment on above: Order Comment: Waive d Testing in the ED is performed under the ED CLIA certificate #[id number]. Result Comment: [email or web address] Performed By: #### L [id number] ####[facility] ([facility])[address] [place] [address] 30on 08-31-2024 30 Normal [facility] 30 Normal [facility] BASIC METABOLIC PANELon 08-21 Anion gap [Moles/Vol] 8 mmol/L Normal 7-20 [facility] Comment on above: Performed By: #### L [id number] ####[facility] ([facility])[address] [place] [address] Calcium [Mass/Vol] 9.6 mg/dL Normal 8.6-10.3 [facility] Comment on above: Performed By: #### L [id number] ####[facility] ([facility])[address] [place] [address] Chloride [Moles/Vol] 97 mmol/L Low 98-107 [facility] Comment on above: Performed By: #### L [id number] ####[facility] ([facility])[address] [place] [address] CO2 [Moles/Vol] 35 mmol/L High 21-31 [facility] Comment on above: Performed By: #### L [id number] ####[facility] ([facility])[address] [place] [address] Creatinine [Mass/Vol] 0.85 mg/dL Normal 0.70-1.30 [facility] Comment on above: Performed By: #### L [id number] ####[facility] ([facility])[address] [place] [address] GLOMERULAR FILTRATION RATE ML/MIN/1.73 SQ M.PREDICTED 96.4 mL/min/1.73m*2 Normal >60.0 [facility] Comment on above: Result Comment: [facility]???s estimated glomerular filtration rate (eGFR) will no [...] of individuals. Performed By: #### L [id number] ####[facility] ([facility])[address] [place] [address] Glucose [Mass/Vol] 205 mg/dL High 70-100 [facility] Comment on above: Performed By: #### L [id number] ####[facility] ([facility])[address] [place] [address] Potassium [Moles/Vol] 3.9 mmol/L Normal 3.5-5.1 [facility] Comment on above: Performed By: #### L [id number] ####[facility] ([facility])[address] [place] [address] Sodium [Moles/Vol] 136 mmol/L Normal 136-145 [facility] Comment on above: Performed By: #### L [id number] ####[facility] ([facility])[address] [place] [address] Urea nitrogen [Mass/Vol] 21 mg/dL Normal 7-25 [facility] Comment on above: Performed By: #### L [id number] ####[facility] ([facility])[address] [place] [address] UREA NITROGEN/CREATININE (MASS RATIO) IN SER/PLAS 24.7 Normal [facility] Comment on above: Performed By: #### L [id number] ####[facility] ([facility])[address] [place] [address] CBC WITH AUTO DIFFERENTIALon 08-31-2024 Basophils (Bld) [#/Vol] 0.06 10*3/uL Normal 0.00-0.20 [facility] Comment on above: Performed By: #### L [id number] ####[facility] ([facility])[address] [place] [address] Basophils/100 WBC (Bld) 0.8 % Normal 0.0-1.0 [facility] Comment on above: Performed By: #### L [id number] ####[facility] ([facility])[address] [place] [address] Eosinophils (Bld) [#/Vol] 0.38 10*3/uL Normal 0.00-0.50 [facility] Comment on above: Performed By: #### L [id number] ####[facility] ([facility])[address] [place] [address] Eosinophils/100 WBC (Bld) 5.3 % Normal 0.0-6.0 [facility] Comment on above: Performed By: #### L [id number] ####[facility] ([facility])[address] [place] [address] Erythrocyte distribution width (RBC) [Ratio] 15.2 % High 11.5-15.0 [facility] Comment on above: Performed By: #### L [id number] ####[facility] ([facility])[address] [place] [address] ERYTHROCYTE MEAN CORPUSCULAR HEMOGLOBIN CONCENTRATION (G/DL) BY AUTOMATED 30.4 g/dL Low 32.0-35.0 [facility] Comment on above: Performed By: #### L [id number] ####[facility] ([facility])[address] [place] [address] Hematocrit (Bld) [Volume fraction] 48.3 % Normal 39.0-55.0 [facility] Comment on above: Performed By: #### L [id number] ####[facility] ([facility])[address] [place] [address] Hemoglobin (Bld) [Mass/Vol] 14.7 g/dL Normal 13.0-17.0 [facility] Comment on above: Performed By: #### L [id number] ####[facility] ([facility])[address] [place] [address] Immature granulocytes (Bld) [#/Vol] 0.06 10*3/uL Normal 0.00-0.20 [facility] Comment on above: Performed By: #### L [id number] ####[facility] ([facility])[address] [place] [address] Immature granulocytes/100 WBC (Bld) 0.8 % Normal 0.0-1.0 [facility] Comment on above: Performed By: #### L [id number] ####[facility] ([facility])[address] [place] [address] Lymphocytes (Bld) [#/Vol] 1.17 10*3/uL Low 1.20-4.00 [facility] Comment on above: Performed By: #### L [id number] ####[facility] ([facility])[address] [facility] [place] [address] Lymphocytes/100 WBC (Bld) 16.3 % Low 20.0-45.0 [facility] Comment on above: Performed By: #### L [id number] ####[facility] ([facility])[address] [place] [address] MCH (RBC) [Entitic mass] 29.0 pg Normal 27.0-33.0 [facility] Comment on above: Performed By: #### L [id number] ####[facility] ([facility])[address] [place] [address] MCV (RBC) [Entitic vol] 95.3 fL Normal 82.0-98.0 [facility] Comment on above: Performed By: #### L [id number] ####[facility] ([facility])[address] [place] [address] Monocytes (Bld) [#/Vol] 0.82 10*3/uL Normal 0.10-1.00 [facility] Comment on above: Performed By: #### L [id number] ####[facility] ([facility])[address] [place] [address] Monocytes/100 WBC (Bld) 11.4 % Normal 5.0-12.0 [facility] Comment on above: Performed By: #### L [id number] ####[facility] ([facility])[address] [place] [address] Neutrophils (Bld) [#/Vol] 4.70 10*3/uL Normal 1.60-7.60 [facility] Comment on above: Performed By: #### L [id number] ####[facility] ([facility])[address] [place] [address] Neutrophils/100 WBC (Bld) 65.4 % Normal 40.0-72.0 [facility] Comment on above: Performed By: #### L [id number] ####[facility] ([facility])[address] [place] [address] NRBC (PER 100 WBCS) BY AUTOMATED COUNT 0.0 % Normal 0 [facility] Comment on above: Performed By: #### L [id number] ####[facility] ([facility])[address] [place] [address] PLATELETS (10*3/UL) IN BLOOD AUTOMATED COUNT 278 10*3/uL Normal 150-400 [facility] Comment on above: Performed By: #### L [id number] ####[facility] ([facility])[address] [place] [address] RBC (Bld) [#/Vol] 5.07 10*6/uL Normal 4.20-5.70 [facility] Comment on above: Performed By: #### L [id number] ####[facility] ([facility])[address] [place] [address] WBC (Bld) [#/Vol] 7.19 10*3/uL Normal 4.00-10.60 [facility] Comment on above: Performed By: #### L [id number] ####[facility] ([facility])[address] [place] [address] MAGNESIUMon 08-31-2024 Magnesium [Mass/Vol] 1.6 mg/dL Low 1.9-2.7 [facility] Comment on above: Performed By: #### L [id number] ####[facility] ([facility])[address] [place] [address] POCT GLUCOSE METER UNSOLICIT ED RESULTSon 08-31-2024 Glucose [Mass/Vol] 281 mg/dL High 70-105 [facility] Comment on above: Order Comment: Waive d Testing in the ED is performed under the ED CLIA certificate #[id number]. Result Comment: [email or web address] Performed By: #### L [id number] ####[facility] ([facility])[address] [place] [address] Glucose [Mass/Vol] 157 mg/dL High 70-105 [facility] Comment on above: Order Comment: Waive d Testing in the ED is performed under the ED CLIA certificate #[id number]. Result Comment: [email or web address] [email or web address] Performed By: #### L [id number] ####[facility] ([facility])[address] [place] [address] Glucose [Mass/Vol] 212 mg/dL High 70-105 [facility] Comment on above: Order Comment: Waive d Testing in the ED is performed under the ED CLIA certificate #[id number]. Result Comment: [email or web address] Performed By: #### L [id number] ####[facility] ([facility])[address] [place] [address] Glucose [Mass/Vol] 167 mg/dL High 70-105 [facility] Comment on above: Order Comment: Waive d Testing in the ED is performed under the ED CLIA certificate #[id number]. Result Comment: [email or web address] [email or web address] Performed By: #### L [id number] ####[facility] ([facility])[address] [place] [address] 30on 08-30-2024 30 Normal [facility] BASIC METABOLIC PANELon 08-21 Anion gap [Moles/Vol] 10 mmol/L Normal 7-20 [facility] Comment on above: Performed By: #### L [id number] ####[facility] ([facility])[address] [place] [address] Calcium [Mass/Vol] 10.3 mg/dL Normal 8.6-10.3 [facility] Comment on above: Performed By: #### L [id number] ####[facility] ([facility])[address] [place] [address] Chloride [Moles/Vol] 94 mmol/L Low 98-107 [facility] Comment on above: Performed By: #### L [id number] ####[facility] ([facility])[address] [place] [address] CO2 [Moles/Vol] 34 mmol/L High 21-31 [facility] Comment on above: Performed By: #### L [id number] ####[facility] ([facility])[address] [place] [address] Creatinine [Mass/Vol] 0.98 mg/dL Normal 0.70-1.30 [facility] Comment on above: Performed By: #### L [id number] ####[facility] ([facility])[address] [place] [address] GLOMERULAR FILTRATION RATE ML/MIN/1.73 SQ M.PREDICTED 85.6 mL/min/1.73m*2 Normal >60.0 [facility] Comment on above: Result Comment: [facility]???s estimated glomerular filtration rate (eGFR) will no [...] of individuals. Performed By: #### L [id number] ####[facility] ([facility])[address] [place] [address] Glucose [Mass/Vol] 184 mg/dL High 70-100 [facility] Comment on above: Performed By: #### L [id number] ####[facility] ([facility])[address] [place] [address] Potassium [Moles/Vol] 4.1 mmol/L Normal 3.5-5.1 [facility] Comment on above: Performed By: #### L [id number] ####[facility] ([facility])[address] [place] [address] Sodium [Moles/Vol] 134 mmol/L Low 136-145 [facility] Comment on above: Performed By: #### L [id number] ####[facility] ([facility])[address] [place] [address] Urea nitrogen [Mass/Vol] 27 mg/dL High 7-25 [facility] Comment on above: Performed By: #### L [id number] ####[facility] ([facility])[address] [place] [address] UREA NITROGEN/CREATININE (MASS RATIO) IN SER/PLAS 27.6 Normal [facility] Comment on above: Performed By: #### L [id number] ####[facility] ([facility])[address] [place] [address] CBC WITH AUTO DIFFERENTIALon 08-30-2024 Basophils (Bld) [#/Vol] 0.09 10*3/uL Normal 0.00-0.20 [facility] Comment on above: Performed By: #### L [id number] ####[facility] ([facility])[address] [place] [address] Basophils/100 WBC (Bld) 1.0 % Normal 0.0-1.0 [facility] Comment on above: Performed By: #### L [id number] ####[facility] ([facility])[address] [place] [address] Eosinophils (Bld) [#/Vol] 0.54 10*3/uL High 0.00-0.50 [facility] Comment on above: Performed By: #### L [id number] ####[facility] ([facility])[address] [place] [address] Eosinophils/100 WBC (Bld) 5.9 % Normal 0.0-6.0 [facility] Comment on above: Performed By: #### L [id number] ####[facility] ([facility])[address] [place] [address] Erythrocyte distribution width (RBC) [Ratio] 14.9 % Normal 11.5-15.0 [facility] Comment on above: Performed By: #### L [id number] ####[facility] ([facility])[address] [place] [address] ERYTHROCYTE MEAN CORPUSCULAR HEMOGLOBIN CONCENTRATION (G/DL) BY AUTOMATED 31.0 g/dL Low 32.0-35.0 [facility] Comment on above: Performed By: #### L [id number] ####[facility] ([facility])[address] [place] [address] Hematocrit (Bld) [Volume fraction] 50.9 % Normal 39.0-55.0 [facility] Comment on above: Performed By: #### L [id number] ####[facility] ([facility])[address] [place] [address] Hemoglobin (Bld) [Mass/Vol] 15.8 g/dL Normal 13.0-17.0 [facility] Comment on above: Performed By: #### L [id number] ####[facility] ([facility])[address] [place] [address] Immature granulocytes (Bld) [#/Vol] 0.06 10*3/uL Normal 0.00-0.20 [facility] Comment on above: Performed By: #### L [id number] ####[facility] ([facility])[address] [place] [address] Immature granulocytes/100 WBC (Bld) 0.7 % Normal 0.0-1.0 [facility] Comment on above: Performed By: #### L [id number] ####[facility] ([facility])[address] [place] [address] Lymphocytes (Bld) [#/Vol] 1.65 10*3/uL Normal 1.20-4.00 [facility] Comment on above: Performed By: #### L [id number] ####[facility] ([facility])[address] [place] [address] Lymphocytes/100 WBC (Bld) 17.9 % Low 20.0-45.0 [facility] Comment on above: Performed By: #### L [id number] ####[facility] ([facility])[address] [place] [address] MCH (RBC) [Entitic mass] 29.2 pg Normal 27.0-33.0 [facility] Comment on above: Performed By: #### L [id number] ####[facility] ([facility])[address] [place] [address] MCV (RBC) [Entitic vol] 93.9 fL Normal 82.0-98.0 [facility] Comment on above: Performed By: #### L [id number] ####[facility] ([facility])[address] [place] [address] Monocytes (Bld) [#/Vol] 1.05 10*3/uL High 0.10-1.00 [facility] Comment on above: Performed By: #### L [id number] ####[facility] ([facility])[address] [place] [address] Monocytes/100 WBC (Bld) 11.4 % Normal 5.0-12.0 [facility] Comment on above: Performed By: #### L [id number] ####[facility] ([facility])[address] [place] [address] Neutrophils (Bld) [#/Vol] 5.82 10*3/uL Normal 1.60-7.60 [facility] Comment on above: Performed By: #### L [id number] ####[facility] ([facility])[address] [place] [address] Neutrophils/100 WBC (Bld) 63.1 % Normal 40.0-72.0 [facility] Comment on above: Performed By: #### L [id number] ####[facility] ([facility])[address] [place] [address] NRBC (PER 100 WBCS) BY AUTOMATED COUNT 0.0 % Normal 0 [facility] Comment on above: Performed By: #### L [id number] ####[facility] ([facility])[address] [place] [address] PLATELETS (10*3/UL) IN BLOOD AUTOMATED COUNT 298 10*3/uL Normal 150-400 [facility] Comment on above: Performed By: #### L [id number] ####[facility] ([facility])[address] [place] [address] RBC (Bld) [#/Vol] 5.42 10*6/uL Normal 4.20-5.70 [facility] Comment on above: Performed By: #### L [id number] ####[facility] ([facility])[address] [place] [address] WBC (Bld) [#/Vol] 9.21 10*3/uL Normal 4.00-10.60 [facility] Comment on above: Performed By: #### L [id number] ####[facility] ([facility])[address] [place] [address] CONSULTon 08-30-2024 CONSULT Normal [facility] MAGNESIUMon 08-30-2024 Magnesium [Mass/Vol] 1.7 mg/dL Low 1.9-2.7 [facility] Comment on above: Performed By: #### L [id number] ####[facility] ([facility])[address] [place] [address] NURSNOTEon 08-30-2024 NURSNOTE Normal [facility] POCT GLUCOSE METER UNSOLICIT ED RESULTSon 08-30-2024 Glucose [Mass/Vol] 294 mg/dL High 70-105 [facility] Comment on above: Order Comment: Waive d Testing in the ED is performed under the ED CLIA certificate #[id number]. Result Comment: [email or web address] [id number] Value Noted Performed By: #### L [id number] ####[facility] ([facility])[address] [place] [address] Glucose [Mass/Vol] 162 mg/dL High 70-105 [facility] Comment on above: Order Comment: Waive d Testing in the ED is performed under the ED CLIA certificate #[id number]. Result Comment: [email or web address] rbo Performed By: #### L [id number] ####[facility] ([facility] [facility])[address] [place] [address] Glucose [Mass/Vol] 193 mg/dL High 70-105 [facility] Comment on above: Order Comment: Waive d Testing in the ED is performed under the ED CLIA certificate #[id number]. Result Comment: [email or web address] [email or web address] Performed By: #### L [id number] ####[facility] ([facility])[address] [place] [address] Glucose [Mass/Vol] 235 mg/dL High 70-105 [facility] Comment on above: Order Comment: Waive d Testing in the ED is performed under the ED CLIA certificate #[id number]. Result Comment: [email or web address] Performed By: #### L [id number] ####[facility] (BEAKER)[address] [place] [address] Glucose [Mass/Vol] 209 mg/dL High 70-105 [facility] Comment on above: Order Comment: Waive d Testing in the ED is performed under the ED CLIA certificate #[id number]. Result Comment: [email or web address] Performed By: #### L [id number] ####[facility] ([facility]ER)[address] [place] [address] BASIC METABOLIC PANELon 02-0 Anion gap [Moles/Vol] 7 mmol/L Normal 7-20 [facility] Comment on above: Performed By: #### L [id number] ####[facility] (BEAKER)[address] [place] [address] Calcium [Mass/Vol] 10.5 mg/dL High 8.6-10.3 [facility] Comment on above: Performed By: #### L [id number] ####[facility] (BEAKER)[address] [place] [address] Chloride [Moles/Vol] 93 mmol/L Low 98-107 [facility] Comment on above: Performed By: #### L [id number] ####[facility] ([facility])[address] [place] [address] CO2 [Moles/Vol] 38 mmol/L High 21-31 [facility] Comment on above: Performed By: #### L [id number] ####[facility] (BE[facility]ER)[address] [place] [address] Creatinine [Mass/Vol] 0.96 mg/dL Normal 0.70-1.30 [facility] Comment on above: Performed By: #### L [id number] ####[facility] ([facility])[address] [place] [address] GLOMERULAR FILTRATION RATE ML/MIN/1.73 SQ M.PREDICTED 87.7 mL/min/1.73m*2 Normal >60.0 [facility] Comment on above: Result Comment: [facility]???s estimated glomerular filtration rate (eGFR) will no [...] of individuals. Performed By: #### L [id number] ####[facility] ([facility])[address] [place] [address] Glucose [Mass/Vol] 182 mg/dL High 70-100 [facility] Comment on above: Performed By: #### L [id number] ####[facility] ([facility])[address] [facility] [address] Potassium [Moles/Vol] 4.1 mmol/L Normal 3.5-5.1 [facility] Comment on above: Performed By: #### L [id number] ####[facility] ([facility])[address] [place] [address] Sodium [Moles/Vol] 134 mmol/L Low 136-145 [facility] Comment on above: Performed By: #### L [id number] ####[facility] ([facility])[address] [facility] [address] Urea nitrogen [Mass/Vol] 23 mg/dL Normal 7-25 [facility] Comment on above: Performed By: #### L [id number] ####[facility] ([facility])[address] [place] [address] UREA NITROGEN/CREATININE (MASS RATIO) IN SER/PLAS 24.0 Normal [facility] Comment on above: Performed By: #### L [id number] ####[facility] ([facility])[address] [place] [address] CBC WITH AUTO DIFFERENTIALon 08-29-2024 Basophils (Bld) [#/Vol] 0.09 10*3/uL Normal 0.00-0.20 [facility] Comment on above: Performed By: #### L [id number] ####[facility] (BEAKER)[address] [place] [address] Basophils/100 WBC (Bld) 1.0 % Normal 0.0-1.0 [facility] Comment on above: Performed By: #### L [id number] ####[facility] ([facility])[address] [place] [address] Eosinophils (Bld) [#/Vol] 0.48 10*3/uL Normal 0.00-0.50 [facility] Comment on above: Performed By: #### L [id number] ####[facility] ([facility])[address] [place] [address] Eosinophils/100 WBC (Bld) 5.3 % Normal 0.0-6.0 [facility] Comment on above: Performed By: #### L [id number] ####[facility] ([facility])[address] [place] [address] Erythrocyte distribution width (RBC) [Ratio] 15.0 % Normal 11.5-15.0 [facility] Comment on above: Performed By: #### L [id number] ####[facility] ([facility])[address] [place] [address] ERYTHROCYTE MEAN CORPUSCULAR HEMOGLOBIN CONCENTRATION (G/DL) BY AUTOMATED 30.5 g/dL Low 32.0-35.0 [facility] Comment on above: Performed By: #### L [id number] ####[facility] (BEAKER)[address] [place] [address] Hematocrit (Bld) [Volume fraction] 51.2 % Normal 39.0-55.0 [facility] Comment on above: Performed By: #### L [id number] ####[facility] (BEAKER)[address] [place] [address] Hemoglobin (Bld) [Mass/Vol] 15.6 g/dL Normal 13.0-17.0 [facility] Comment on above: Performed By: #### L [id number] ####[facility] (BEAKER)[address] [place] [address] Immature granulocytes (Bld) [#/Vol] 0.07 10*3/uL Normal 0.00-0.20 [facility] Comment on above: Performed By: #### L [id number] ####[facility] (BEAKER)[address] [place] [address] Immature granulocytes/100 WBC (Bld) 0.8 % Normal 0.0-1.0 [facility] Comment on above: Performed By: #### L [id number] ####[facility] (BEAKER)[address] [place] [address] Lymphocytes (Bld) [#/Vol] 1.41 10*3/uL Normal 1.20-4.00 [facility] Comment on above: Performed By: #### L [id number] ####[facility] (BEAKER)[address] [place] [address] Lymphocytes/100 WBC (Bld) 15.7 % Low 20.0-45.0 [facility] Comment on above: Performed By: #### L [id number] ####[facility] (BEAKER)[address] [place] [address] MCH (RBC) [Entitic mass] 29.0 pg Normal 27.0-33.0 [facility] Comment on above: Performed By: #### L [id number] ####[facility] (BEAKER)[address] [place] [address] MCV (RBC) [Entitic vol] 95.2 fL Normal 82.0-98.0 [facility] Comment on above: Performed By: #### L [id number] ####[facility] (BEAKER)[address] [place] [address] Monocytes (Bld) [#/Vol] 0.82 10*3/uL Normal 0.10-1.00 [facility] Comment on above: Performed By: #### L [id number] ####[facility] ([facility])[address] [place] [address] Monocytes/100 WBC (Bld) 9.1 % Normal 5.0-12.0 [facility] Comment on above: Performed By: #### L [id number] ####[facility] ([facility])[address] [place] [address] Neutrophils (Bld) [#/Vol] 6.11 10*3/uL Normal 1.60-7.60 [facility] Comment on above: Performed By: #### L [id number] ####[facility] ([facility])[address] [place], [place] [address] Neutrophils/100 WBC (Bld) 68.1 % Normal 40.0-72.0 [facility] Comment on above: Performed By: #### L [id number] ####[facility] ([facility])[address] [place] [address] NRBC (PER 100 WBCS) BY AUTOMATED COUNT 0.0 % Normal 0 [facility] Comment on above: Performed By: #### L [id number] ####[facility] ([facility])[address] [address] PLATELETS (10*3/UL) IN BLOOD AUTOMATED COUNT 262 10*3/uL Normal 150-400 [facility] Comment on above: Performed By: #### L [id number] ####[facility] ([facility])[address] [place] [address] RBC (Bld) [#/Vol] 5.38 10*6/uL Normal 4.20-5.70 [facility] Comment on above: Performed By: #### L [id number] ####[facility] ([facility])[address] [place], [place] [address] WBC (Bld) [#/Vol] 8.98 10*3/uL Normal 4.00-10.60 [facility] Comment on above: Performed By: #### L [id number] ####[facility] ([facility])[address] [place] [address] MAGNESIUMon 08-29-2024 Magnesium [Mass/Vol] 1.7 mg/dL Low 1.9-2.7 [facility] Comment on above: Performed By: #### L [id number] ####[facility] ([facility])[address] [place] [address] POCT GLUCOSE METER UNSOLICIT ED RESULTSon 08-29-2024 Glucose [Mass/Vol] 284 mg/dL High 70-105 [facility] Comment on above: Order Comment: Waive d Testing in the ED is performed under the ED CLIA certificate #[id number]. Result Comment: [email or web address] Performed By: #### L [id number] ####[facility] ([facility])[address] [place] [address] Glucose [Mass/Vol] 259 mg/dL High 70-105 [facility] Comment on above: Order Comment: Waive d Testing in the ED is performed under the ED CLIA certificate #[id number]. Result Comment: aall [email or web address] Performed By: #### L [id number] ####[facility] ([facility])[address] [place] [address] Glucose [Mass/Vol] 301 mg/dL High 70-105 [facility] Comment on above: Order Comment: Waive d Testing in the ED is performed under the ED CLIA certificate #[id number]. Result Comment: aall [email or web address] Performed By: #### L [id number] ####[facility] ([facility])[address] [place] [address] Glucose [Mass/Vol] 166 mg/dL High 70-105 [facility] Comment on above: Order Comment: Waive d Testing in the ED is performed under the ED CLIA certificate #[id number]. Result Comment: aall [email or web address] Performed By: #### L [id number] ####[facility] ([facility])[address] [place] [address] BASIC METABOLIC PANELon 02-0 Anion gap [Moles/Vol] 8 mmol/L Normal 7-20 [facility] Comment on above: Performed By: #### L [id number] ####[facility] (BEAKER)[address] [place] [address] Calcium [Mass/Vol] 9.8 mg/dL Normal 8.6-10.3 [facility] Comment on above: Performed By: #### L [id number] ####[facility] (BE[facility]ER)[address] [place] [address] Chloride [Moles/Vol] 96 mmol/L Low 98-107 [facility] Comment on above: Performed By: #### L [id number] ####[facility] (BEAKER)[address] [place] [address] CO2 [Moles/Vol] 37 mmol/L High 21-31 [facility] Comment on above: Performed By: #### L [id number] ####[facility] (BE[facility]ER)[address] [place] [address] Creatinine [Mass/Vol] 0.82 mg/dL Normal 0.70-1.30 [facility] Comment on above: Performed By: #### L [id number] ####[facility] (BEAKER)[address] [place] [address] GLOMERULAR FILTRATION RATE ML/MIN/1.73 SQ M.PREDICTED 97.5 mL/min/1.73m*2 Normal >60.0 [facility] Comment on above: Result Comment: [facility]???s estimated glomerular filtration rate (eGFR) will no [...] of individuals. Performed By: #### L [id number] ####[facility] ([facility])[address] [place] [address] Glucose [Mass/Vol] 183 mg/dL High 70-100 [facility] Comment on above: Performed By: #### L [id number] ####[facility] ([facility])[address] [place] [address] Potassium [Moles/Vol] 3.7 mmol/L Normal 3.5-5.1 [facility] Comment on above: Performed By: #### L [id number] ####[facility] ([facility])[address] [place] [address] Sodium [Moles/Vol] 137 mmol/L Normal 136-145 [facility] Comment on above: Performed By: #### L [id number] ####[facility] ([facility])[address] [place] [address] Urea nitrogen [Mass/Vol] 17 mg/dL Normal 7-25 [facility] Comment on above: Performed By: #### L [id number] ####[facility] ([facility])[address] [place] [address] UREA NITROGEN/CREATININE (MASS RATIO) IN SER/PLAS 20.7 Normal [facility] Comment on above: Performed By: #### L [id number] ####[facility] ([facility])[address] [place] [address] CBC WITH AUTO DIFFERENTIALon 08-28-2024 Basophils (Bld) [#/Vol] 0.09 10*3/uL Normal 0.00-0.20 [facility] Comment on above: Performed By: #### L [id number] ####[facility] ([facility])[address] [place] [address] Basophils/100 WBC (Bld) 0.9 % Normal 0.0-1.0 [facility] Comment on above: Performed By: #### L [id number] ####[facility] ([facility])[address] [place] [address] Eosinophils (Bld) [#/Vol] 0.40 10*3/uL Normal 0.00-0.50 [facility] Comment on above: Performed By: #### L [id number] ####[facility] (BEAKER)[address] [place] [address] Eosinophils/100 WBC (Bld) 4.2 % Normal 0.0-6.0 [facility] Comment on above: Performed By: #### L [id number] ####[facility] (BEAKER)[address] [place] [address] Erythrocyte distribution width (RBC) [Ratio] 14.8 % Normal 11.5-15.0 [facility] Comment on above: Performed By: #### L [id number] ####[facility] (BEAKER)[address] [place] [address] ERYTHROCYTE MEAN CORPUSCULAR HEMOGLOBIN CONCENTRATION (G/DL) BY AUTOMATED 30.3 g/dL Low 32.0-35.0 [facility] Comment on above: Performed By: #### L [id number] ####[facility] (BEAKER)[address] [place] [address] Hematocrit (Bld) [Volume fraction] 50.9 % Normal 39.0-55.0 [facility] Comment on above: Performed By: #### L [id number] ####[facility] (BEAKER)[address] [place] [address] Hemoglobin (Bld) [Mass/Vol] 15.4 g/dL Normal 13.0-17.0 [facility] Comment on above: Performed By: #### L [id number] ####[facility] (BEAKER)[address] [place] [address] Immature granulocytes (Bld) [#/Vol] 0.06 10*3/uL Normal 0.00-0.20 [facility] Comment on above: Performed By: #### L [id number] ####[facility] (BEAKER)[address] [place] [address] Immature granulocytes/100 WBC (Bld) 0.6 % Normal 0.0-1.0 [facility] Comment on above: Performed By: #### L [id number] ####[facility] ([facility])[address] [place] [address] Lymphocytes (Bld) [#/Vol] 1.68 10*3/uL Normal 1.20-4.00 [facility] Comment on above: Performed By: #### L [id number] ####[facility] ([facility])[address] [place] [address] Lymphocytes/100 WBC (Bld) 17.6 % Low 20.0-45.0 [facility] Comment on above: Performed By: #### L [id number] ####[facility] ([facility])[address] [place] [address] MCH (RBC) [Entitic mass] 29.2 pg Normal 27.0-33.0 [facility] Comment on above: Performed By: #### L [id number] ####[facility] ([facility])[address] [place] [address] MCV (RBC) [Entitic vol] 96.6 fL Normal 82.0-98.0 [facility] Comment on above: Performed By: #### L [id number] ####[facility] ([facility])[address] [place] [address] Monocytes (Bld) [#/Vol] 0.99 10*3/uL Normal 0.10-1.00 [facility] Comment on above: Performed By: #### L [id number] ####[facility] ([facility])[address] [place] [address] Monocytes/100 WBC (Bld) 10.4 % Normal 5.0-12.0 [facility] Comment on above: Performed By: #### L [id number] ####[facility] (BEAKER)[address] [place] [address] Neutrophils (Bld) [#/Vol] 6.33 10*3/uL Normal 1.60-7.60 [facility] Comment on above: Performed By: #### L [id number] ####[facility] ([facility])[address] [place] [address] Neutrophils/100 WBC (Bld) 66.3 % Normal 40.0-72.0 [facility] Comment on above: Performed By: #### L [id number] ####[facility] ([facility])[address] [address] NRBC (PER 100 WBCS) BY AUTOMATED COUNT 0.0 % Normal 0 [facility] Comment on above: Performed By: #### L [id number] ####[facility] ([facility])[address] [place] [address] PLATELETS (10*3/UL) IN BLOOD AUTOMATED COUNT 252 10*3/uL Normal 150-400 [facility] Comment on above: Performed By: #### L [id number] ####[facility] ([facility])[address] [place] [address] RBC (Bld) [#/Vol] 5.27 10*6/uL Normal 4.20-5.70 [facility] Comment on above: Performed By: #### L [id number] ####[facility] ([facility])[address] [address] WBC (Bld) [#/Vol] 9.55 10*3/uL Normal 4.00-10.60 [facility] Comment on above: Performed By: #### L [id number] ####[facility] ([facility])[address] [place] [address] MAGNESIUMon 08-28-2024 Magnesium [Mass/Vol] 1.8 mg/dL Low 1.9-2.7 [facility] Comment on above: Performed By: #### L [id number] ####[facility] ([facility])[address] [place] [address] NURSNOTEon 08-28-2024 NURSNOTE Normal [facility] POCT GLUCOSE METER UNSOLICIT ED RESULTSon 08-28-2024 Glucose [Mass/Vol] 258 mg/dL High 70-105 [facility] Comment on above: Order Comment: Waive d Testing in the ED is performed under the ED CLIA certificate #[id number]. Result Comment: [email or web address] Performed By: #### L [id number] ####[facility] ([facility])[address] [place] [address] Glucose [Mass/Vol] 177 mg/dL High 70-105 [facility] Comment on above: Order Comment: Waive d Testing in the ED is performed under the ED CLIA certificate #[id number]. Result Comment: [email or web address] [email or web address] Performed By: #### L [id number] ####[facility] ([facility])[address] [place] [address] Glucose [Mass/Vol] 242 mg/dL High 70-105 [facility] Comment on above: Order Comment: Waive d Testing in the ED is performed under the ED CLIA certificate #[id number]. Result Comment: [email or web address] [email or web address] Performed By: #### L [id number] ####[facility] (BE[facility]ER)[address] [place] [address] Glucose [Mass/Vol] 200 mg/dL High 70-105 [facility] Comment on above: Order Comment: Waive d Testing in the ED is performed under the ED CLIA certificate #[id number]. Result Comment: aall [email or web address] Performed By: #### L [id number] ####[facility] (BE[facility]ER)[address] [place] [address] 30on 08-27-2024 30 Normal [facility] BASIC METABOLIC PANELon Anion gap [Moles/Vol] 6 mmol/L Low 7-20 [facility] Comment on above: Performed By: #### L [id number] ####[facility] (BE[facility]ER)[address] [place] [address] Calcium [Mass/Vol] 9.8 mg/dL Normal 8.6-10.3 [facility] Comment on above: Performed By: #### L [id number] ####[facility] (BE[facility]ER)[address] [place] [address] Chloride [Moles/Vol] 97 mmol/L Low 98-107 [facility] Comment on above: Performed By: #### L [id number] ####[facility] ([facility])[address] [place] [address] CO2 [Moles/Vol] 41 mmol/L Critically high 21-31 [facility] Comment on above: Performed By: #### L [id number] ####[facility] ([facility])[address] [place] [address] Creatinine [Mass/Vol] 0.81 mg/dL Normal 0.70-1.30 [facility] Comment on above: Performed By: #### L [id number] ####[facility] ([facility])[address] [place] [address] GLOMERULAR FILTRATION RATE ML/MIN/1.73 SQ M.PREDICTED 97.8 mL/min/1.73m*2 Normal >60.0 [facility] Comment on above: Result Comment: [facility]???s estimated glomerular filtration rate (eGFR) will no [...] of individuals. Performed By: #### L [id number] ####[facility] ([facility])[address] [place] [address] Glucose [Mass/Vol] 187 mg/dL High 70-100 [facility] Comment on above: Performed By: #### L [id number] ####[facility] (BE[facility]ER)[address] [place] [address] Potassium [Moles/Vol] 3.5 mmol/L Normal 3.5-5.1 [facility] Comment on above: Performed By: #### L [id number] ####[facility] ([facility])[address] [place] [address] Sodium [Moles/Vol] 140 mmol/L Normal 136-145 [facility] Comment on above: Performed By: #### L [id number] ####[facility] ([facility])[address] [place] [address] Urea nitrogen [Mass/Vol] 16 mg/dL Normal 7-25 [facility] Comment on above: Performed By: #### L [id number] ####[facility] ([facility])[address] [place] [address] UREA NITROGEN/CREATININE (MASS RATIO) IN SER/PLAS 19.8 Normal [facility] Comment on above: Performed By: #### L [id number] ####[facility] ([facility])[address] [place] [address] CBC WITH AUTO DIFFERENTIALon 08-27-2024 Basophils (Bld) [#/Vol] 0.06 10*3/uL Normal 0.00-0.20 [facility] Comment on above: Performed By: #### L [id number] ####[facility] ([facility])[address] [place] [address] Basophils/100 WBC (Bld) 0.7 % Normal 0.0-1.0 [facility] Comment on above: Performed By: #### L [id number] ####[facility] ([facility])[address] [place] [address] Eosinophils (Bld) [#/Vol] 0.38 10*3/uL Normal 0.00-0.50 [facility] Comment on above: Performed By: #### L [id number] ####[facility] (BEAKER)[address] [place] [address] Eosinophils/100 WBC (Bld) 4.7 % Normal 0.0-6.0 [facility] Comment on above: Performed By: #### L [id number] ####[facility] ([facility])[address] [place] [address] Erythrocyte distribution width (RBC) [Ratio] 14.6 % Normal 11.5-15.0 [facility] Comment on above: Performed By: #### L [id number] ####[facility] ([facility])[address] [place] [address] ERYTHROCYTE MEAN CORPUSCULAR HEMOGLOBIN CONCENTRATION (G/DL) BY AUTOMATED 29.7 g/dL Low 32.0-35.0 [facility] [facility] Comment on above: Performed By: #### L [id number] ####[facility] ([facility])[address] [place] [address] Hematocrit (Bld) [Volume fraction] 49.5 % Normal 39.0-55.0 [facility] Comment on above: Performed By: #### L [id number] ####[facility] ([facility])[address] [place] [address] Hemoglobin (Bld) [Mass/Vol] 14.7 g/dL Normal 13.0-17.0 [facility] Comment on above: Performed By: #### L [id number] ####[facility] ([facility])[address] [place] [address] Immature granulocytes (Bld) [#/Vol] 0.04 10*3/uL Normal 0.00-0.20 [facility] Comment on above: Performed By: #### L [id number] ####[facility] ([facility])[address] [place] [address] Immature granulocytes/100 WBC (Bld) 0.5 % Normal 0.0-1.0 [facility] Comment on above: Performed By: #### L [id number] ####[facility] ([facility])[address] [place] [address] Lymphocytes (Bld) [#/Vol] 1.42 10*3/uL Normal 1.20-4.00 [facility] Comment on above: Performed By: #### L [id number] ####[facility] ([facility])[address] [place] [address] Lymphocytes/100 WBC (Bld) 17.7 % Low 20.0-45.0 [facility] Comment on above: Performed By: #### L [id number] ####[facility] ([facility])[address] [place] [address] MCH (RBC) [Entitic mass] 28.9 pg Normal 27.0-33.0 [facility] Comment on above: Performed By: #### L [id number] ####[facility] ([facility])[address] [place] [address] MCV (RBC) [Entitic vol] 97.4 fL Normal 82.0-98.0 [facility] Comment on above: Performed By: #### L [id number] ####[facility] ([facility])[address] [place] [address] Monocytes (Bld) [#/Vol] 0.92 10*3/uL Normal 0.10-1.00 [facility] Comment on above: Performed By: #### L [id number] ####[facility] ([facility])[address] [place] [address] Monocytes/100 WBC (Bld) 11.5 % Normal 5.0-12.0 [facility] Comment on above: Performed By: #### L [id number] ####[facility] ([facility])[address] [place] [address] Neutrophils (Bld) [#/Vol] 5.19 10*3/uL Normal 1.60-7.60 [facility] Comment on above: Performed By: #### L [id number] ####[facility] ([facility])[address] [place] [address] Neutrophils/100 WBC (Bld) 64.9 % Normal 40.0-72.0 [facility] Comment on above: Performed By: #### L [id number] ####[facility] ([facility])[address] [place] [address] NRBC (PER 100 WBCS) BY AUTOMATED COUNT 0.0 % Normal 0 [facility] Comment on above: Performed By: #### L [id number] ####[facility] ([facility])[address] [place] [address] PLATELETS (10*3/UL) IN BLOOD AUTOMATED COUNT 209 10*3/uL Normal 150-400 [facility] Comment on above: Performed By: #### L [id number] ####[facility] ([facility])[address] [place] [address] RBC (Bld) [#/Vol] 5.08 10*6/uL Normal 4.20-5.70 [facility] Comment on above: Performed By: #### L [id number] ####[facility] ([facility])[address] [place] [address] WBC (Bld) [#/Vol] 8.01 10*3/uL Normal 4.00-10.60 [facility] Comment on above: Performed By: #### L [id number] ####[facility] ([facility])[address] [place] [address] MAGNESIUMon 08-27-2024 Magnesium [Mass/Vol] 1.6 mg/dL Low 1.9-2.7 [facility] Comment on above: Performed By: #### L [id number] ####[facility] ([facility])[address] [place] [address] POCT GLUCOSE METER UNSOLICIT ED RESULTSon 08-27-2024 Glucose [Mass/Vol] 144 mg/dL High 70-105 [facility] Comment on above: Order Comment: Waive d Testing in the ED is performed under the ED CLIA certificate #[id number]. Result Comment: [email or web address] Performed By: #### L [id number] ####[facility] ([facility])[address] [place] [address] Glucose [Mass/Vol] 204 mg/dL High 70-105 [facility] Comment on above: Order Comment: Waive d Testing in the ED is performed under the ED CLIA certificate #[id number]. Result Comment: [email or web address] Performed By: #### L [id number] ####[facility] ([facility])[address] [place] [address] Glucose [Mass/Vol] 230 mg/dL High 70-105 [facility] Comment on above: Order Comment: Waive d Testing in the ED is performed under the ED CLIA certificate #[id number]. Result Comment: [email or web address] Performed By: #### L [id number] ####[facility] ([facility])[address] [place] [address] Glucose [Mass/Vol] 174 mg/dL High 70-105 [facility] Comment on above: Order Comment: Waive d Testing in the ED is performed under the ED CLIA certificate #[id number]. Result Comment: [email or web address] [email or web address] Performed By: #### L [id number] ####[facility] ([facility])[address] [place] [address] BASIC METABOLIC PANELon 02-0 Anion gap [Moles/Vol] 9 mmol/L Normal 7-20 [facility] Comment on above: Performed By: #### L [id number] ####[facility] ([facility])[address] [place] [address] Calcium [Mass/Vol] 9.4 mg/dL Normal 8.6-10.3 [facility] Comment on above: Performed By: #### L [id number] ####[facility] ([facility])[address] [place] [address] Chloride [Moles/Vol] 100 mmol/L Normal 98-107 [facility] Comment on above: Performed By: #### L [id number] ####[facility] ([facility])[address] [place] [address] CO2 [Moles/Vol] 36 mmol/L High 21-31 [facility] Comment on above: Performed By: #### L [id number] ####[facility] ([facility])[address] [place] [address] Creatinine [Mass/Vol] 0.78 mg/dL Normal 0.70-1.30 [facility] Comment on above: Performed By: #### L [id number] ####[facility] ([facility])[address] [place] [address] GLOMERULAR FILTRATION RATE ML/MIN/1.73 SQ M.PREDICTED 99.0 mL/min/1.73m*2 Normal >60.0 [facility] Comment on above: Result Comment: [facility]???s estimated glomerular filtration rate (eGFR) will no [...] of individuals. Performed By: #### L [id number] ####[facility] ([facility])[address] [place] [address] Glucose [Mass/Vol] 156 mg/dL High 70-100 [facility] Comment on above: Performed By: #### L [id number] ####[facility] ([facility])[address] [place] [address] Potassium [Moles/Vol] 3.5 mmol/L Normal 3.5-5.1 [facility] Comment on above: Performed By: #### L [id number] ####[facility] ([facility])[address] [place] [address] Sodium [Moles/Vol] 141 mmol/L Normal 136-145 [facility] Comment on above: Performed By: #### L [id number] ####[facility] ([facility])[address] [address] Urea nitrogen [Mass/Vol] 17 mg/dL Normal 7-25 [facility] Comment on above: Performed By: #### L [id number] ####[facility] ([facility])[address] [place] [address] UREA NITROGEN/CREATININE (MASS RATIO) IN SER/PLAS 21.8 Normal [facility] Comment on above: Performed By: #### L [id number] ####[facility] ([facility])[address] [place] [address] CBC WITH AUTO DIFFERENTIALon 08-26-2024 Basophils (Bld) [#/Vol] 0.06 10*3/uL Normal 0.00-0.20 [facility] Comment on above: Performed By: #### L [id number] ####[facility] ([facility])[address] [place] [address] Basophils/100 WBC (Bld) 0.8 % Normal 0.0-1.0 [facility] Comment on above: Performed By: #### L [id number] ####[facility] ([facility])[address] [place] [address] Eosinophils (Bld) [#/Vol] 0.39 10*3/uL Normal 0.00-0.50 [facility] Comment on above: Performed By: #### L [id number] ####[facility] ([facility])[address] [place] [address] Eosinophils/100 WBC (Bld) 5.4 % Normal 0.0-6.0 [facility] Comment on above: Performed By: #### L [id number] ####[facility] ([facility])[address] [place] [address] Erythrocyte distribution width (RBC) [Ratio] 14.7 % Normal 11.5-15.0 [facility] Comment on above: Performed By: #### L [id number] ####[facility] ([facility])[address] [place] [address] ERYTHROCYTE MEAN CORPUSCULAR HEMOGLOBIN CONCENTRATION (G/DL) BY AUTOMATED 30.4 g/dL Low 32.0-35.0 [facility] Comment on above: Performed By: #### L [id number] ####[facility] ([facility])[address] [place] [address] Hematocrit (Bld) [Volume fraction] 49.0 % Normal 39.0-55.0 [facility] Comment on above: Performed By: #### L [id number] ####[facility] ([facility])[address] [place] [address] Hemoglobin (Bld) [Mass/Vol] 14.9 g/dL Normal 13.0-17.0 [facility] Comment on above: Performed By: #### L [id number] ####[facility] ([facility])[address] [place] [address] Immature granulocytes (Bld) [#/Vol] 0.03 10*3/uL Normal 0.00-0.20 [facility] Comment on above: Performed By: #### L [id number] ####[facility] ([facility])[address] [place] [address] Immature granulocytes/100 WBC (Bld) 0.4 % Normal 0.0-1.0 [facility] Comment on above: Performed By: #### L [id number] ####[facility] ([facility])[address] [place] [address] Lymphocytes (Bld) [#/Vol] 1.21 10*3/uL Normal 1.20-4.00 [facility] Comment on above: Performed By: #### L [id number] ####[facility] ([facility])[address] [place] [address] Lymphocytes/100 WBC (Bld) 16.7 % Low 20.0-45.0 [facility] Comment on above: Performed By: #### L [id number] ####[facility] ([facility])[address] [place] [address] MCH (RBC) [Entitic mass] 29.2 pg Normal 27.0-33.0 [facility] Comment on above: Performed By: #### L [id number] ####[facility] ([facility])[address] [place] [address] MCV (RBC) [Entitic vol] 96.1 fL Normal 82.0-98.0 [facility] Comment on above: Performed By: #### L [id number] ####[facility] ([facility])[address] [place] [address] Monocytes (Bld) [#/Vol] 0.86 10*3/uL Normal 0.10-1.00 [facility] Comment on above: Performed By: #### L [id number] ####[facility] ([facility])[address] [place] [address] Monocytes/100 WBC (Bld) 11.9 % Normal 5.0-12.0 [facility] Comment on above: Performed By: #### L [id number] ####[facility] ([facility])[address] [place] [address] Neutrophils (Bld) [#/Vol] 4.70 10*3/uL Normal 1.60-7.60 [facility] Comment on above: Performed By: #### L [id number] ####[facility] ([facility])[address] [place] [address] Neutrophils/100 WBC (Bld) 64.8 % Normal 40.0-72.0 [facility] Comment on above: Performed By: #### L [id number] ####[facility] ([facility])[address] [place] [address] NRBC (PER 100 WBCS) BY AUTOMATED COUNT 0.0 % Normal 0 [facility] Comment on above: Performed By: #### L [id number] ####[facility] ([facility])[address] [place] [address] PLATELETS (10*3/UL) IN BLOOD AUTOMATED COUNT 208 10*3/uL Normal 150-400 [facility] Comment on above: Performed By: #### L [id number] ####[facility] ([facility])[address] [place] [address] RBC (Bld) [#/Vol] 5.10 10*6/uL Normal 4.20-5.70 [facility] Comment on above: Performed By: #### L [id number] ####[facility] ([facility])[address] [place] [address] WBC (Bld) [#/Vol] 7.25 10*3/uL Normal 4.00-10.60 [facility] Comment on above: Performed By: #### L [id number] ####[facility] ([facility])[address] [place] [address] MAGNESIUMon 08-26-2024 Magnesium [Mass/Vol] 1.8 mg/dL Low 1.9-2.7 [facility] Comment on above: Performed By: #### L [id number] ####[facility] ([facility])[address] [place] [address] POCT GLUCOSE METER UNSOLICIT ED RESULTSon 08-26-2024 Glucose [Mass/Vol] 246 mg/dL High 70-105 [facility] Comment on above: Order Comment: Waive d Testing in the ED is performed under the ED CLIA certificate #[id number]. Result Comment: [email or web address] Performed By: #### L [id number] ####[facility] ([facility])[address] [place] [address] Glucose [Mass/Vol] 204 mg/dL High 70-105 [facility] Comment on above: Order Comment: Waive d Testing in the ED is performed under the ED CLIA certificate #[id number]. Result Comment: [id number] Performed By: #### L [id number] ####[facility] ([facility])[address] [place] [address] Glucose [Mass/Vol] 219 mg/dL High 70-105 [facility] Comment on above: Order Comment: Waive d Testing in the ED is performed under the ED CLIA certificate #[id number]. Result Comment: [id number] Performed By: #### L [id number] ####[facility] ([facility])[address] [place] [address] Glucose [Mass/Vol] 163 mg/dL High 70-105 [facility] Comment on above: Order Comment: Waive d Testing in the ED is performed under the ED CLIA certificate #[id number]. Result Comment: [email or web address] [email or web address] Performed By: #### L [id number] ####[facility] ([facility])[address] [place] [address] 30on 08-25-2024 30 Normal [facility] BASIC METABOLIC PANELon Anion gap [Moles/Vol] 10 mmol/L Normal 7-20 [facility] Comment on above: Performed By: #### L [id number] ####[facility] ([facility])[address] [place] [address] Calcium [Mass/Vol] 9.5 mg/dL Normal 8.6-10.3 [facility] Comment on above: Performed By: #### L [id number] ####[facility] ([facility])[address] [place] [address] Chloride [Moles/Vol] 97 mmol/L Low 98-107 [facility] Comment on above: Performed By: #### L [id number] ####[facility] ([facility])[address] [place] [address] CO2 [Moles/Vol] 34 mmol/L High 21-31 [facility] Comment on above: Performed By: #### L [id number] ####[facility] ([facility])[address] [place] [address] Creatinine [Mass/Vol] 0.87 mg/dL Normal 0.70-1.30 [facility] Comment on above: Performed By: #### L [id number] ####[facility] ([facility])[address] [place] [address] GLOMERULAR FILTRATION RATE ML/MIN/1.73 SQ M.PREDICTED 95.8 mL/min/1.73m*2 Normal >60.0 [facility] Comment on above: Result Comment: [facility]???s estimated glomerular filtration rate (eGFR) will no [...] of individuals. Performed By: #### L [id number] ####[facility] ([facility])[address] [place] [address] Glucose [Mass/Vol] 178 mg/dL High 70-100 [facility] Comment on above: Performed By: #### L [id number] ####[facility] ([facility])[address] [place] [address] Potassium [Moles/Vol] 3.5 mmol/L Normal 3.5-5.1 [facility] Comment on above: Performed By: #### L [id number] ####[facility] ([facility])[address] [place] [address] Sodium [Moles/Vol] 137 mmol/L Normal 136-145 [facility] Comment on above: Performed By: #### L [id number] ####[facility] ([facility])[address] [place] [address] Urea nitrogen [Mass/Vol] 20 mg/dL Normal 7-25 [facility] Comment on above: Performed By: #### L [id number] ####[facility] ([facility])[address] [place] [address] UREA NITROGEN/CREATININE (MASS RATIO) IN SER/PLAS 23.0 Normal [facility] Comment on above: Performed By: #### L [id number] ####[facility] ([facility])[address] [place] [address] CBC WITH AUTO DIFFERENTIALon 08-25-2024 Basophils (Bld) [#/Vol] 0.04 10*3/uL Normal 0.00-0.20 [facility] Comment on above: Performed By: #### L [id number] ####[facility] ([facility])[address] [place] [address] Basophils/100 WBC (Bld) 0.6 % Normal 0.0-1.0 [facility] Comment on above: Performed By: #### L [id number] ####[facility] ([facility])[address] [place] [address] Eosinophils (Bld) [#/Vol] 0.22 10*3/uL Normal 0.00-0.50 [facility] Comment on above: Performed By: #### L [id number] ####[facility] ([facility])[address] [place] [address] Eosinophils/100 WBC (Bld) 3.1 % Normal 0.0-6.0 [facility] Comment on above: Performed By: #### L [id number] ####[facility] ([facility])[address] [place] [address] Erythrocyte distribution width (RBC) [Ratio] 14.6 % Normal 11.5-15.0 [facility] Comment on above: Performed By: #### L [id number] ####[facility] ([facility])[address] [place] [address] ERYTHROCYTE MEAN CORPUSCULAR HEMOGLOBIN CONCENTRATION (G/DL) BY AUTOMATED 30.6 g/dL Low 32.0-35.0 [facility] Comment on above: Performed By: #### L [id number] ####[facility] ([facility])[address] [place] [address] Hematocrit (Bld) [Volume fraction] 49.4 % Normal 39.0-55.0 [facility] Comment on above: Performed By: #### L [id number] ####[facility] ([facility])[address] [place] [address] Hemoglobin (Bld) [Mass/Vol] 15.1 g/dL Normal 13.0-17.0 [facility] Comment on above: Performed By: #### L [id number] ####[facility] ([facility])[address] [place] [address] Immature granulocytes (Bld) [#/Vol] 0.04 10*3/uL Normal 0.00-0.20 [facility] Comment on above: Performed By: #### L [id number] ####[facility] ([facility])[address] [place] [address] Immature granulocytes/100 WBC (Bld) 0.6 % Normal 0.0-1.0 [facility] Comment on above: Performed By: #### L [id number] ####[facility] ([facility])[address] [place] [address] Lymphocytes (Bld) [#/Vol] 1.08 10*3/uL Low 1.20-4.00 [facility] Comment on above: Performed By: #### L [id number] ####[facility] ([facility])[address] [place] [address] Lymphocytes/100 WBC (Bld) 15.1 % Low 20.0-45.0 [facility] Comment on above: Performed By: #### L [id number] ####[facility] ([facility])[address] [place] [address] MCH (RBC) [Entitic mass] 28.9 pg Normal 27.0-33.0 [facility] Comment on above: Performed By: #### L [id number] ####[facility] ([facility])[address] [place] [address] MCV (RBC) [Entitic vol] 94.6 fL Normal 82.0-98.0 [facility] Comment on above: Performed By: #### L [id number] ####[facility] ([facility])[address] [place] [address] Monocytes (Bld) [#/Vol] 0.94 10*3/uL Normal 0.10-1.00 [facility] Comment on above: Performed By: #### L [id number] ####[facility] ([facility])[address] [place] [address] Monocytes/100 WBC (Bld) 13.1 % High 5.0-12.0 [facility] Comment on above: Performed By: #### L [id number] ####[facility] ([facility])[address] [place] [address] Neutrophils (Bld) [#/Vol] 4.85 10*3/uL Normal 1.60-7.60 [facility] Comment on above: Performed By: #### L [id number] ####[facility] ([facility])[address] [place] [address] Neutrophils/100 WBC (Bld) 67.5 % Normal 40.0-72.0 [facility] Comment on above: Performed By: #### L [id number] ####[facility] ([facility])[address] [place] [address] NRBC (PER 100 WBCS) BY AUTOMATED COUNT 0.0 % Normal 0 [facility] Comment on above: Performed By: #### L [id number] ####[facility] ([facility])[address] [place] [address] PLATELETS (10*3/UL) IN BLOOD AUTOMATED COUNT 200 10*3/uL Normal 150-400 [facility] Comment on above: Performed By: #### L [id number] ####[facility] ([facility])[address] [place] [address] RBC (Bld) [#/Vol] 5.22 10*6/uL Normal 4.20-5.70 [facility] Comment on above: Performed By: #### L [id number] ####[facility] ([facility])[address] [place] [address] WBC (Bld) [#/Vol] 7.17 10*3/uL Normal 4.00-10.60 [facility] Comment on above: Performed By: #### L [id number] ####[facility] ([facility])[address] [place] [address] MAGNESIUMon 08-25-2024 Magnesium [Mass/Vol] 1.6 mg/dL Low 1.9-2.7 [facility] Comment on above: Performed By: #### L [id number] ####[facility] ([facility])[address] [place] [address] POCT GLUCOSE METER UNSOLICIT ED RESULTSon 08-25-2024 Glucose [Mass/Vol] 154 mg/dL High 70-105 [facility] Comment on above: Order Comment: Waive d Testing in the ED is performed under the ED CLIA certificate #[id number]. Result Comment: [email or web address] Performed By: #### L [id number] ####[facility] ([facility])[address] [place] [address] Glucose [Mass/Vol] 196 mg/dL High 70-105 [facility] Comment on above: Order Comment: Waive d Testing in the ED is performed under the ED CLIA certificate #[id number]. Result Comment: [email or web address] [email or web address] Performed By: #### L [id number] ####[facility] ([facility])[address] [address] Glucose [Mass/Vol] 313 mg/dL High 70-105 [facility] Comment on above: Order Comment: Waive d Testing in the ED is performed under the ED CLIA certificate #[id number]. Result Comment: [email or web address] [email or web address] Performed By: #### L [id number] ####[facility] ([facility])[address] [place] [address] Glucose [Mass/Vol] 164 mg/dL High 70-105 [facility] Comment on above: Order Comment: Waive d Testing in the ED is performed under the ED CLIA certificate #[id number]. Result Comment: ndub [email or web address] Performed By: #### L [id number] ####[facility] ([facility])[address] [place] [address] 30on 08-24-2024 30 Normal [facility] ANTI-XA (HEPARIN LEVEL)on HEPARIN UNFRACTIONATED (U/ML) IN PPP BY CHROMOGENIC METHOD 0.21 IU/mL Low 0.3-0.7 [facility] Comment on above: Result Comment: Adams roxaban and Apixaban will interfere with the anti Xa assay used to monitor UFH and LMWH. Performed By: #### L [id number] ####[facility] ([facility])[address] [place] [address] B-TYPE NATRIURETIC PEPTIDEon 08-24-2024 Natriuretic peptide B (Bld) [Mass/Vol] 143 pg/mL High 0-100 [facility] Comment on above: Performed By: #### L [id number] ####[facility] ([facility])[address] [place] [address] BASIC METABOLIC PANELon Anion gap [Moles/Vol] 11 mmol/L Normal 7-20 [facility] Comment on above: Performed By: #### L [id number] ####[facility] ([facility])[address] [place] [address] Calcium [Mass/Vol] 9.7 mg/dL Normal 8.6-10.3 [facility] Comment on above: Performed By: #### L [id number] ####[facility] ([facility])[address] [place] [address] Chloride [Moles/Vol] 98 mmol/L Normal 98-107 [facility] Comment on above: Performed By: #### L [id number] ####[facility] ([facility])[address] [place] [address] CO2 [Moles/Vol] 33 mmol/L High 21-31 [facility] Comment on above: Performed By: #### L [id number] ####[facility] ([facility])[address] [place] [address] Creatinine [Mass/Vol] 0.93 mg/dL Normal 0.70-1.30 [facility] Comment on above: Performed By: #### L [id number] ####[facility] ([facility])[address] [place] [address] GLOMERULAR FILTRATION RATE ML/MIN/1.73 SQ M.PREDICTED 91.1 mL/min/1.73m*2 Normal >60.0 [facility] Comment on above: Result Comment: [facility]???s estimated glomerular filtration rate (eGFR) will no [...] of individuals. Performed By: #### L [id number] ####[facility] ([facility])[address] [place] [address] Glucose [Mass/Vol] 166 mg/dL High 70-100 [facility] Comment on above: Performed By: #### L [id number] ####[facility] ([facility])[address] [place] [address] Potassium [Moles/Vol] 3.8 mmol/L Normal 3.5-5.1 [facility] Comment on above: Performed By: #### L [id number] ####[facility] ([facility])[address] [place] [address] Sodium [Moles/Vol] 138 mmol/L Normal 136-145 [facility] Comment on above: Performed By: #### L [id number] ####[facility] ([facility])[address] [place] [address] Urea nitrogen [Mass/Vol] 23 mg/dL Normal 7-25 [facility] Comment on above: Performed By: #### L [id number] ####[facility] ([facility])[address] [place] [address] UREA NITROGEN/CREATININE (MASS RATIO) IN SER/PLAS 24.7 Normal [facility] Comment on above: Performed By: #### L [id number] ####[facility] ([facility])[address] [place] [address] Anion gap [Moles/Vol] 10 mmol/L Normal 7-20 [facility] Comment on above: Performed By: #### L [id number] ####[facility] ([facility])[address] [place] [address] Calcium [Mass/Vol] 9.4 mg/dL Normal 8.6-10.3 [facility] Comment on above: Performed By: #### L [id number] ####[facility] ([facility])[address] [place] [address] Chloride [Moles/Vol] 98 mmol/L Normal 98-107 [facility] Comment on above: Performed By: #### L [id number] ####[facility] ([facility])[address] [place] [address] CO2 [Moles/Vol] 33 mmol/L High 21-31 [facility] Comment on above: Performed By: #### L [id number] ####[facility] ([facility])[address] [place] [address] Creatinine [Mass/Vol] 0.88 mg/dL Normal 0.70-1.30 [facility] Comment on above: Performed By: #### L [id number] ####[facility] ([facility])[address] [place] [address] GLOMERULAR FILTRATION RATE ML/MIN/1.73 SQ M.PREDICTED 95.4 mL/min/1.73m*2 Normal >60.0 [facility] Comment on above: Result Comment: [facility]???s estimated glomerular filtration rate (eGFR) will no [...] of individuals. Performed By: #### L [id number] ####[facility] ([facility])[address] [place] [address] Glucose [Mass/Vol] 132 mg/dL High 70-100 [facility] Comment on above: Performed By: #### L [id number] ####[facility] ([facility])[address] [place] [address] Potassium [Moles/Vol] 2.9 mmol/L Invalid Interpretation Code 3.5-5.1 [facility] Comment on above: Performed By: #### L [id number] ####[facility] ([facility])[address] [place] [address] Sodium [Moles/Vol] 138 mmol/L Normal 136-145 [facility] Comment on above: Performed By: #### L [id number] ####[facility] ([facility])[address] [place] [address] Urea nitrogen [Mass/Vol] 24 mg/dL Normal 7-25 [facility] Comment on above: Performed By: #### L [id number] ####[facility] ([facility])[address] [place] [address] UREA NITROGEN/CREATININE (MASS RATIO) IN SER/PLAS 27.3 Normal [facility] Comment on above: Performed By: #### L [id number] ####[facility] ([facility])[address] [place] [address] CBC WITH AUTO DIFFERENTIALon 08-24-2024 Basophils (Bld) [#/Vol] 0.06 10*3/uL Normal 0.00-0.20 [facility] Comment on above: Performed By: #### L [id number] ####[facility] ([facility])[address] [place] [address] Basophils/100 WBC (Bld) 0.8 % Normal 0.0-1.0 [facility] Comment on above: Performed By: #### L [id number] ####[facility] ([facility])[address] [place] [address] Eosinophils (Bld) [#/Vol] 0.46 10*3/uL Normal 0.00-0.50 [facility] Comment on above: Performed By: #### L [id number] ####[facility] ([facility])[address] [place] [address] Eosinophils/100 WBC (Bld) 5.9 % Normal 0.0-6.0 [facility] Comment on above: Performed By: #### L [id number] ####[facility] ([facility])[address] [place] [address] Erythrocyte distribution width (RBC) [Ratio] 14.7 % Normal 11.5-15.0 [facility] Comment on above: Performed By: #### L [id number] ####[facility] ([facility])[address] [place] [address] ERYTHROCYTE MEAN CORPUSCULAR HEMOGLOBIN CONCENTRATION (G/DL) BY AUTOMATED 31.3 g/dL Low 32.0-35.0 [facility] Comment on above: Performed By: #### L [id number] ####[facility] ([facility])[address] [place] [address] Hematocrit (Bld) [Volume fraction] 50.8 % Normal 39.0-55.0 [facility] Comment on above: Performed By: #### L [id number] ####[facility] ([facility])[address] [place] [address] Hemoglobin (Bld) [Mass/Vol] 15.9 g/dL Normal 13.0-17.0 [facility] Comment on above: Performed By: #### L [id number] ####[facility] ([facility])[address] [place] [address] Immature granulocytes (Bld) [#/Vol] 0.04 10*3/uL Normal 0.00-0.20 [facility] Comment on above: Performed By: #### L [id number] ####[facility] ([facility])[address] [place] [address] Immature granulocytes/100 WBC (Bld) 0.5 % Normal 0.0-1.0 [facility] Comment on above: Performed By: #### L [id number] ####[facility] ([facility])[address] [place] [address] Lymphocytes (Bld) [#/Vol] 1.23 10*3/uL Normal 1.20-4.00 [facility] Comment on above: Performed By: #### L [id number] ####[facility] ([facility])[address] [place] [address] Lymphocytes/100 WBC (Bld) 15.8 % Low 20.0-45.0 [facility] Comment on above: Performed By: #### L [id number] ####[facility] ([facility])[address] [place] [address] MCH (RBC) [Entitic mass] 29.1 pg Normal 27.0-33.0 [facility] Comment on above: Performed By: #### L [id number] ####[facility] ([facility])[address] [place] [address] MCV (RBC) [Entitic vol] 92.9 fL Normal 82.0-98.0 [facility] Comment on above: Performed By: #### L [id number] ####[facility] ([facility])[address] [place] [address] Monocytes (Bld) [#/Vol] 0.96 10*3/uL Normal 0.10-1.00 [facility] Comment on above: Performed By: #### L [id number] ####[facility] ([facility])[address] [place] [address] Monocytes/100 WBC (Bld) 12.4 % High 5.0-12.0 [facility] Comment on above: Performed By: #### L [id number] ####[facility] ([facility])[address] [place] [address] Neutrophils (Bld) [#/Vol] 5.02 10*3/uL Normal 1.60-7.60 [facility] Comment on above: Performed By: #### L [id number] ####[facility] ([facility])[address] [place] [address] Neutrophils/100 WBC (Bld) 64.6 % Normal 40.0-72.0 [facility] Comment on above: Performed By: #### L [id number] ####[facility] ([facility])[address] [place] [address] NRBC (PER 100 WBCS) BY AUTOMATED COUNT 0.0 % Normal 0 [facility] Comment on above: Performed By: #### L [id number] ####[facility] ([facility])[address] [place] [address] PLATELETS (10*3/UL) IN BLOOD AUTOMATED COUNT 194 10*3/uL Normal 150-400 [facility] Comment on above: Performed By: #### L [id number] ####[facility] ([facility])[address] [place] [address] RBC (Bld) [#/Vol] 5.47 10*6/uL Normal 4.20-5.70 [facility] Comment on above: Performed By: #### L [id number] ####[facility] ([facility])[address] [place] [address] WBC (Bld) [#/Vol] 7.77 10*3/uL Normal 4.00-10.60 [facility] Comment on above: Performed By: #### L [id number] ####[facility] ([facility])[address] [place] [address] CONSULTon 08-24-2024 CONSULT Normal [facility] CT HEAD WO IV CONTRASTon CT HEAD WO IV CONTRAST Invalid Interpretation Code [facility] CTA CHEST W IV CONTRASTon CTA CHEST W IV CONTRAST Normal [facility] MAGNESIUMon 08-24-2024 Magnesium [Mass/Vol] 1.7 mg/dL Low 1.9-2.7 [facility] Comment on above: Performed By: #### L [id number] ####[facility] ([facility])[address] [place] [address] Magnesium [Mass/Vol] 1.4 mg/dL Low 1.9-2.7 [facility] Comment on above: Performed By: #### L [id number] ####[facility] ([facility])[address] [place] [address] NURSNOTEon 08-24-2024 NURSNOTE [facility] NURSNOTE Normal [facility] PHOSPHORUSon 08-24-2024 Magnesium [Mass/Vol] 3.4 mg/dL Normal 2.5-5.0 [facility] Comment on above: Performed By: #### L [id number] ####[facility] ([facility])[address] [place] [address] POCT GLUCOSE METER UNSOLICIT ED RESULTSon 08-24-2024 Glucose [Mass/Vol] 182 mg/dL High 70-105 [facility] Comment on above: Order Comment: Waive d Testing in the ED is performed under the ED CLIA certificate #[id number]. Result Comment: droc kol Performed By: #### L [id number] ####[facility] ([facility])[address] [place] [address] Glucose [Mass/Vol] 166 mg/dL High 70-105 [facility] Comment on above: Order Comment: Waive d Testing in the ED is performed under the ED CLIA certificate #[id number]. Result Comment: sbel cad Performed By: #### L [id number] ####[facility] ([facility])[address] [place] [address] Glucose [Mass/Vol] 150 mg/dL High 70-105 [facility] Comment on above: Order Comment: Waive d Testing in the ED is performed under the ED CLIA certificate #[id number]. Result Comment: besc obe Performed By: #### L [id number] ####[facility] ([facility])[address] [place] [address] Glucose [Mass/Vol] 136 mg/dL High 70-105 [facility] Comment on above: Order Comment: Waive d Testing in the ED is performed under the ED CLIA certificate #[id number]. Result Comment: swey [id number] Value Noted Performed By: #### L [id number] ####[facility] ([facility])[address] [place] [address] BASIC METABOLIC PANELon Anion gap [Moles/Vol] 10 mmol/L Normal 7-20 [facility] Comment on above: Performed By: #### L [id number] ####[facility] ([facility])[address] [place] [address] Calcium [Mass/Vol] 9.8 mg/dL Normal 8.6-10.3 [facility] Comment on above: Performed By: #### L [id number] ####[facility] ([facility])[address] [place] [address] Chloride [Moles/Vol] 99 mmol/L Normal 98-107 [facility] Comment on above: Performed By: #### L [id number] ####[facility] ([facility])[address] [place] [address] CO2 [Moles/Vol] 33 mmol/L High 21-31 [facility] Comment on above: Performed By: #### L [id number] ####[facility] ([facility])[address] [place] [address] Creatinine [Mass/Vol] 0.94 mg/dL Normal 0.70-1.30 [facility] Comment on above: Performed By: #### L [id number] ####[facility] ([facility])[address] [place] [address] GLOMERULAR FILTRATION RATE ML/MIN/1.73 SQ M.PREDICTED 90.0 mL/min/1.73m*2 Normal >60.0 [facility] Comment on above: Result Comment: [facility]???s estimated glomerular filtration rate (eGFR) will no [...] of individuals. Performed By: #### L [id number] ####[facility] ([facility])[address] [place] [address] Glucose [Mass/Vol] 274 mg/dL High 70-100 [facility] Comment on above: Performed By: #### L [id number] ####[facility] ([facility])[address] [place] [address] Potassium [Moles/Vol] 3.8 mmol/L Normal 3.5-5.1 [facility] Comment on above: Performed By: #### L [id number] ####[facility] ([facility])[address] [place] [address] Sodium [Moles/Vol] 138 mmol/L Normal 136-145 [facility] Comment on above: Performed By: #### L [id number] ####[facility] ([facility])[address] [place] [address] Urea nitrogen [Mass/Vol] 31 mg/dL High 7-25 [facility] Comment on above: Performed By: #### L [id number] ####[facility] ([facility])[address] [place] [address] UREA NITROGEN/CREATININE (MASS RATIO) IN SER/PLAS 33.0 Normal [facility] Comment on above: Performed By: #### L [id number] ####[facility] ([facility])[address] [place] [address] CBC WITH AUTO DIFFERENTIALon 08-23-2024 Basophils (Bld) [#/Vol] 0.06 10*3/uL Normal 0.00-0.20 [facility] Comment on above: Performed By: #### L [id number] ####[facility] ([facility])[address] [place] [address] Basophils/100 WBC (Bld) 0.9 % Normal 0.0-1.0 [facility] Comment on above: Performed By: #### L [id number] ####[facility] ([facility])[address] [place] [address] Eosinophils (Bld) [#/Vol] 0.34 10*3/uL Normal 0.00-0.50 [facility] Comment on above: Performed By: #### L [id number] ####[facility] ([facility])[address] [place] [address] Eosinophils/100 WBC (Bld) 4.8 % Normal 0.0-6.0 [facility] Comment on above: Performed By: #### L [id number] ####[facility] ([facility])[address] [place] [address] Erythrocyte distribution width (RBC) [Ratio] 14.7 % Normal 11.5-15.0 [facility] Comment on above: Performed By: #### L [id number] ####[facility] ([facility])[address] [place] [address] ERYTHROCYTE MEAN CORPUSCULAR HEMOGLOBIN CONCENTRATION (G/DL) BY AUTOMATED 31.8 g/dL Low 32.0-35.0 [facility] Comment on above: Performed By: #### L [id number] ####[facility] ([facility])[address] [place] [address] Hematocrit (Bld) [Volume fraction] 52.5 % Normal 39.0-55.0 [facility] Comment on above: Performed By: #### L [id number] ####[facility] ([facility])[address] [place] [address] Hemoglobin (Bld) [Mass/Vol] 16.7 g/dL Normal 13.0-17.0 [facility] Comment on above: Performed By: #### L [id number] ####[facility] ([facility])[address] [place] [address] Immature granulocytes (Bld) [#/Vol] 0.05 10*3/uL Normal 0.00-0.20 [facility] Comment on above: Performed By: #### L [id number] ####[facility] ([facility])[address] [place] [address] Immature granulocytes/100 WBC (Bld) 0.7 % Normal 0.0-1.0 [facility] Comment on above: Performed By: #### L [id number] ####[facility] ([facility])[address] [place] [address] Lymphocytes (Bld) [#/Vol] 1.15 10*3/uL Low 1.20-4.00 [facility] Comment on above: Performed By: #### L [id number] ####[facility] ([facility])[address] [place] [address] Lymphocytes/100 WBC (Bld) 16.4 % Low 20.0-45.0 [facility] Comment on above: Performed By: #### L [id number] ####[facility] ([facility])[address] [place] [address] MCH (RBC) [Entitic mass] 29.0 pg Normal 27.0-33.0 [facility] Comment on above: Performed By: #### L [id number] ####[facility] ([facility])[address] [place] [address] MCV (RBC) [Entitic vol] 91.1 fL Normal 82.0-98.0 [facility] Comment on above: Performed By: #### L [id number] ####[facility] ([facility])[address] [place] [address] Monocytes (Bld) [#/Vol] 0.85 10*3/uL Normal 0.10-1.00 [facility] Comment on above: Performed By: #### L [id number] ####[facility] ([facility])[address] [place] [address] Monocytes/100 WBC (Bld) 12.1 % High 5.0-12.0 [facility] Comment on above: Performed By: #### L [id number] ####[facility] ([facility])[address] [place] [address] Neutrophils (Bld) [#/Vol] 4.58 10*3/uL Normal 1.60-7.60 [facility] Comment on above: Performed By: #### L [id number] ####[facility] ([facility])[address] [address] Neutrophils/100 WBC (Bld) 65.1 % Normal 40.0-72.0 [facility] Comment on above: Performed By: #### L [id number] ####[facility] ([facility])[address] [address] NRBC (PER 100 WBCS) BY AUTOMATED COUNT 0.0 % Normal 0 [facility] Comment on above: Performed By: #### L [id number] ####[facility] ([facility])[address] [place] [address] PLATELETS (10*3/UL) IN BLOOD AUTOMATED COUNT 190 10*3/uL Normal 150-400 [facility] Comment on above: Performed By: #### L [id number] ####[facility] ([facility])[address] [place] [address] RBC (Bld) [#/Vol] 5.76 10*6/uL High 4.20-5.70 [facility] Comment on above: Performed By: #### L [id number] ####[facility] ([facility])[address] [place] [address] WBC (Bld) [#/Vol] 7.03 10*3/uL Normal 4.00-10.60 [facility] Comment on above: Performed By: #### L [id number] ####[facility] ([facility])[address] [place] [address] CONSULTon 02-03-2025 CONSULT Normal [facility] LIPID PANELon 08-23-2024 CHOL/HDL 7.8 mg/dL Normal [facility] Comment on above: Performed By: #### L [id number] ####[facility] ([facility])[address] [facility] [place] [address] Cholesterol [Mass/Vol] 195 mg/dL Normal 120-200 [facility] Comment on above: Performed By: #### L [id number] ####[facility] ([facility])[address] [facility] [place] [address] Magnesium [Mass/Vol] 177 mg/dL High 40-149 [facility] Comment on above: Result Comment: TRIG LYCERIDE REFERENCE RANGE:20 YEARS AND OLDER CARDIOVASCULAR RISKLESS THAN 150 mg/dL LOW [id number] TO 199 mg/dL BORDERLINE [id number] mg/dL AND GREATER HIGH RISK Performed By: #### L [id number] ####[facility] ([facility])[address] [facility] [place] [address] Magnesium [Mass/Vol] 135 mg/dL Normal 0-160 [facility] Comment on above: Performed By: #### L [id number] ####[facility] ([facility])[address] [facility] [place] [address] Magnesium [Mass/Vol] 25 mg/dL Normal 23-92 [facility] Comment on above: Performed By: #### L [id number] ####[facility] ([facility])[address] [facility] [place] [address] NON HDL CHOL. (LDL+VLDL) 170 Normal [facility] Comment on above: Performed By: #### L [id number] ####[facility] ([facility] [facility] [place] [address] TOTAL VLDL-C 35 mg/dL Normal 0-40 [facility] Comment on above: Performed By: #### L [id number] ####[facility] ([facility] [facility] [facility] [place] [address] POCT GLUCOSE METER UNSOLICIT ED RESULTSon 08-23-2024 Glucose [Mass/Vol] 169 mg/dL High 70-105 [facility] Comment on above: Order Comment: Waive d Testing in the ED is performed under the ED CLIA certificate #[id number]. Result Comment: enoch tti Performed By: #### L [id number] ####[facility] ([facility])[address] [facility] [place] [address] Glucose [Mass/Vol] 183 mg/dL High 70-105 [facility] Comment on above: Order Comment: Waive d Testing in the ED is performed under the ED CLIA certificate #[id number]. Result Comment: ezab ors2 Performed By: #### L [id number] ####[facility] ([facility])[address] [place] [address] Glucose [Mass/Vol] 283 mg/dL High 70-105 [facility] Comment on above: Order Comment: Waive d Testing in the ED is performed under the ED CLIA certificate #[id number]. Result Comment: ezab ors2 Performed By: #### L [id number] ####[facility] ([facility])[address] [place] [address] Glucose [Mass/Vol] 258 mg/dL High 70-105 [facility] Comment on above: Order Comment: Waive d Testing in the ED is performed under the ED CLIA certificate #[id number]. Result Comment: tful ks2 Performed By: #### L [id number] ####[facility] ([facility])[address] [facility] [place] [address] 30on 08-22-2024 30 Normal [facility] ANTI-XA (HEPARIN LEVEL)on HEPARIN UNFRACTIONATED (U/ML) IN PPP BY CHROMOGENIC METHOD 0.31 IU/mL Normal 0.3-0.7 [facility] Comment on above: Result Comment: Adams roxaban and Apixaban will interfere with the anti Xa assay used to monitor UFH and LMWH. Performed By: #### L [id number] ####[facility] ([facility])[address] [place] [address] BASIC METABOLIC PANELon - Anion gap [Moles/Vol] 10 mmol/L Normal 7-20 [facility] Comment on above: Performed By: #### L [id number] ####[facility] ([facility])[address] [place] [address] Calcium [Mass/Vol] 9.6 mg/dL Normal 8.6-10.3 [facility] Comment on above: Performed By: #### L [id number] ####[facility] ([facility])[address] [facility] [place] [address] Chloride [Moles/Vol] 102 mmol/L Normal 98-107 [facility] Comment on above: Performed By: #### L [id number] ####[facility] ([facility])[address] [place] [address] CO2 [Moles/Vol] 32 mmol/L High 21-31 [facility] Comment on above: Performed By: #### L [id number] ####[facility] ([facility])[address] [place] [address] Creatinine [Mass/Vol] 1.01 mg/dL Normal 0.70-1.30 [facility] Comment on above: Performed By: #### L [id number] ####[facility] ([facility])[address] [place] [address] GLOMERULAR FILTRATION RATE ML/MIN/1.73 SQ M.PREDICTED 82.5 mL/min/1.73m*2 Normal >60.0 [facility] Comment on above: Result Comment: [facility]???s estimated glomerular filtration rate (eGFR) will no [...] of individuals. Performed By: #### L [id number] ####[facility] ([facility])[address] [place] [address] Glucose [Mass/Vol] 263 mg/dL High 70-100 [facility] Comment on above: Performed By: #### L [id number] ####[facility] ([facility])[address] [place] [address] Potassium [Moles/Vol] 3.7 mmol/L Normal 3.5-5.1 [facility] Comment on above: Performed By: #### L [id number] ####[facility] ([facility])[address] [place] [address] Sodium [Moles/Vol] 140 mmol/L Normal 136-145 [facility] Comment on above: Performed By: #### L [id number] ####[facility] ([facility])[address] [place] [address] Urea nitrogen [Mass/Vol] 33 mg/dL High 7-25 [facility] Comment on above: Performed By: #### L [id number] ####[facility] ([facility])[address] [place] [address] UREA NITROGEN/CREATININE (MASS RATIO) IN SER/PLAS 32.7 Normal [facility] Comment on above: Performed By: #### L [id number] ####[facility] ([facility])[address] [place] [address] CBC WITH AUTO DIFFERENTIALon 08-22-2024 Basophils (Bld) [#/Vol] 0.05 10*3/uL Normal 0.00-0.20 [facility] Comment on above: Performed By: #### L [id number] ####[facility] ([facility])[address] [place] [address] Basophils/100 WBC (Bld) 0.5 % Normal 0.0-1.0 [facility] Comment on above: Performed By: #### L [id number] ####[facility] ([facility])[address] [place] [address] Eosinophils (Bld) [#/Vol] 0.36 10*3/uL Normal 0.00-0.50 [facility] Comment on above: Performed By: #### L [id number] ####[facility] ([facility])[address] [place] [address] Eosinophils/100 WBC (Bld) 3.9 % Normal 0.0-6.0 [facility] Comment on above: Performed By: #### L [id number] ####[facility] ([facility])[address] [place] [address] Erythrocyte distribution width (RBC) [Ratio] 14.7 % Normal 11.5-15.0 [facility] Comment on above: Performed By: #### L [id number] ####[facility] ([facility])[address] [place] [address] ERYTHROCYTE MEAN CORPUSCULAR HEMOGLOBIN CONCENTRATION (G/DL) BY AUTOMATED 30.8 g/dL Low 32.0-35.0 [facility] Comment on above: Performed By: #### L [id number] ####[facility] ([facility])[address] [place] [address] Hematocrit (Bld) [Volume fraction] 52.9 % Normal 39.0-55.0 [facility] Comment on above: Performed By: #### L [id number] ####[facility] ([facility])[address] [place] [address] Hemoglobin (Bld) [Mass/Vol] 16.3 g/dL Normal 13.0-17.0 [facility] Comment on above: Performed By: #### L [id number] ####[facility] ([facility])[address] [place] [address] Immature granulocytes (Bld) [#/Vol] 0.07 10*3/uL Normal 0.00-0.20 [facility] Comment on above: Performed By: #### L [id number] ####[facility] ([facility])[address] [place] [address] Immature granulocytes/100 WBC (Bld) 0.7 % Normal 0.0-1.0 [facility] Comment on above: Performed By: #### L [id number] ####[facility] ([facility])[address] [place] [address] Lymphocytes (Bld) [#/Vol] 1.16 10*3/uL Low 1.20-4.00 [facility] Comment on above: Performed By: #### L [id number] ####[facility] ([facility])[address] [place] [address] Lymphocytes/100 WBC (Bld) 12.4 % Low 20.0-45.0 [facility] Comment on above: Performed By: #### L [id number] ####[facility] ([facility])[address] [place] [address] MCH (RBC) [Entitic mass] 28.8 pg Normal 27.0-33.0 [facility] Comment on above: Performed By: #### L [id number] ####[facility] ([facility])[address] [place] [address] MCV (RBC) [Entitic vol] 93.5 fL Normal 82.0-98.0 [facility] Comment on above: Performed By: #### L [id number] ####[facility] ([facility])[address] [place] [address] Monocytes (Bld) [#/Vol] 1.21 10*3/uL High 0.10-1.00 [facility] Comment on above: Performed By: #### L [id number] ####[facility] ([facility])[address] [place] [address] Monocytes/100 WBC (Bld) 12.9 % High 5.0-12.0 [facility] Comment on above: Performed By: #### L [id number] ####[facility] ([facility])[address] [place] [address] Neutrophils (Bld) [#/Vol] 6.50 10*3/uL Normal 1.60-7.60 [facility] Comment on above: Performed By: #### L [id number] ####[facility] ([facility])[address] [place] [address] Neutrophils/100 WBC (Bld) 69.6 % Normal 40.0-72.0 [facility] Comment on above: Performed By: #### L [id number] ####[facility] ([facility])[address] [place] [address] NRBC (PER 100 WBCS) BY AUTOMATED COUNT 0.0 % Normal 0 [facility] Comment on above: Performed By: #### L [id number] ####[facility] ([facility])[address] [place] [address] PLATELETS (10*3/UL) IN BLOOD AUTOMATED COUNT 187 10*3/uL Normal 150-400 [facility] Comment on above: Performed By: #### L [id number] ####[facility] ([facility])[address] [place] [address] RBC (Bld) [#/Vol] 5.66 10*6/uL Normal 4.20-5.70 [facility] Comment on above: Performed By: #### L [id number] ####[facility] ([facility])[address] [place] [address] WBC (Bld) [#/Vol] 9.35 10*3/uL Normal 4.00-10.60 [facility] Comment on above: Performed By: #### L [id number] ####[facility] ([facility])[address] [place] [address] POCT GLUCOSE METER UNSOLICIT ED RESULTSon 08-22-2024 Glucose [Mass/Vol] 256 mg/dL High 70-105 [facility] Comment on above: Order Comment: Waive d Testing in the ED is performed under the ED CLIA certificate #[id number]. Result Comment: ezab ors2 Performed By: #### L [id number] ####[facility] ([facility])[address] [place] [address] Glucose [Mass/Vol] 277 mg/dL High 70-105 [facility] Comment on above: Order Comment: Waive d Testing in the ED is performed under the ED CLIA certificate #[id number]. Result Comment: ezab ors2 Performed By: #### L [id number] ####[facility] ([facility])[address] [place] [address] ANTI-XA (HEPARIN LEVEL)on HEPARIN UNFRACTIONATED (U/ML) IN PPP BY CHROMOGENIC METHOD 0.30 IU/mL Normal 0.3-0.7 [facility] Comment on above: Result Comment: Adams roxaban and Apixaban will interfere with the anti Xa assay used to monitor UFH and LMWH. Performed By: #### L [id number] ####[facility] ([facility])[address] [place] [address] ARTERIAL BLOOD GAS WITH CO-O XIMETRYon 08-21-2024 Base excess Calc (Bld) [Moles/Vol] 6.7 mmol/L High -2.0-3.0 [facility] Comment on above: Performed By: #### L [id number] ####[facility] [id number] [place] [address] [place] CARBOXYHEMOGLOBIN/HEMO GLOBIN TOTAL % IN BLOOD 2.0 % Normal 0.0-3.0 [facility] Comment on above: Performed By: #### L [id number] ####[facility] [id number] [place] [address] [place] CO2 (Bld) [Partial pressure] 43 mm[Hg] Normal 35-48 [facility] Comment on above: Performed By: #### L [id number] ####[facility] [id number] [place] [address] [place] DEOXYGENATED HEMOGLOBIN IN BLOOD 4.9 % Normal 1-5 [facility] Comment on above: Performed By: #### L [id number] ####[facility] [id number] [place] [address] [place] FIO2 50 % Normal [facility] Comment on above: Performed By: #### L [id number] ####[facility] [id number] [place] [address] [facility] HCO3 (Bld) [Moles/Vol] 31.3 mmol/L High 21.0-28.0 [facility] Comment on above: Performed By: #### L [id number] ####[facility] [id number] [address] [facility] [place] [address] [facility] Hemoglobin (Bld) [Mass/Vol] 16.5 g/dL Normal 11.7-17.4 [facility] Comment on above: Performed By: #### L [id number] ####[facility] [id number] [place] [address] [place] METHEMOGLOBIN/100 IN BLOOD 0.7 % Normal 0.0-1.5 [facility] Comment on above: Performed By: #### L [id number] ####[facility] [id number] [place] [address] [facility] Oxygen (Bld) [Partial pressure] 68 mm[Hg] Low 83-100 [facility] Comment on above: Performed By: #### L [id number] ####[facility] [id number] [place] [address] [facility] OXYGEN SATURATION (%) IN ARTERIAL BLOOD 95.0 % Normal 94.0-98.0 [facility] Comment on above: Performed By: #### L [id number] ####[facility] [id number] [place] [address] [facility] OXYGENATED HEMOGLOBIN IN BLOOD 92.4 % Normal 90.0-95.0 [facility] Comment on above: Performed By: #### L [id number] ####[facility] [id number] [place] [address] [place] pH (Bld) 7.47 [pH] High 7.35-7.45 [facility] Comment on above: Performed By: #### L [id number] ####[facility] [id number] [place] [address] [facility] SOURCE OF OXYGEN Bi-PAP Normal [facility] Comment on above: Performed By: #### L [id number] ####[facility] [id number] [place] [address] [facility] Base excess Calc (Bld) [Moles/Vol] 5.1 mmol/L High -2.0-3.0 [facility] Comment on above: Performed By: #### L [id number] ####[facility] [id number] [place] [address] [place] CARBOXYHEMOGLOBIN/HEMO GLOBIN TOTAL % IN BLOOD 1.9 % Normal 0.0-3.0 [facility] Comment on above: Performed By: #### L [id number] ####[facility] [id number] [place] [address] [place] CO2 (Bld) [Partial pressure] 46 mm[Hg] Normal 35-48 [facility] Comment on above: Performed By: #### L [id number] ####[facility] [id number] [place] [address] [facility] DEOXYGENATED HEMOGLOBIN IN BLOOD 15.8 % Critically high 1-5 [facility] Comment on above: Performed By: #### L [id number] ####[facility] [id number] [place] [address] [place] HCO3 (Bld) [Moles/Vol] 30.5 mmol/L High 21.0-28.0 [facility] Comment on above: Performed By: #### L [id number] ####[facility] [id number] [place] [address] [place] Hemoglobin (Bld) [Mass/Vol] 16.4 g/dL Normal 11.7-17.4 [facility] Comment on above: Performed By: #### L [id number] ####[facility] [id number] [place] [address] [place] LPM 15 Normal [facility] Comment on above: Performed By: #### L [id number] ####[facility] [id number] [place] [address] [place] METHEMOGLOBIN/100 IN BLOOD 0.6 % Normal 0.0-1.5 [facility] Comment on above: Performed By: #### L [id number] ####[facility] [id number] [facility] [place] [address] [facility] Oxygen (Bld) [Partial pressure] 53 mm[Hg] Invalid Interpretation Code 83-100 [facility] Comment on above: Performed By: #### L [id number] ####[facility] [id number] [facility] [place] [address] [facility] OXYGEN SATURATION (%) IN ARTERIAL BLOOD 83.8 % Invalid Interpretation Code 94.0-98.0 [facility] Comment on above: Performed By: #### L [id number] ####[facility] [id number] [place] [address] [facility] OXYGENATED HEMOGLOBIN IN BLOOD 81.7 % Invalid Interpretation Code 90.0-95.0 [facility] Comment on above: Performed By: #### L [id number] ####[facility] [id number] [place] [address] [facility] pH (Bld) 7.43 [pH] Normal 7.35-7.45 [facility] Comment on above: Performed By: #### L [id number] ####[facility] [id number] [place] [address] [facility] SOURCE OF OXYGEN SALTER Normal [facility] Comment on above: Performed By: #### L [id number] ####[facility] [id number] [place] [address] [facility] ARTERIAL BLOOD GAS WITH IONI ZED CALCIUMon 08-21-2024 Base excess Calc (Bld) [Moles/Vol] 6.2 mmol/L High -2.0-3.0 [facility] Comment on above: Performed By: #### L [id number] ####[facility] [id number] [place] [address] [place] CALCIUM IONIZED (MMOL/L) IN BLOOD 1.30 mmol/L Normal 1.15-1.33 [facility] Comment on above: Performed By: #### L [id number] ####[facility] [id number] [place] [address] [facility] CO2 (Bld) [Partial pressure] 45 mm[Hg] Normal 35-48 [facility] Comment on above: Performed By: #### L [id number] ####[facility] [id number] [place] [address] [facility] FIO2 50 % Normal [facility] Comment on above: Performed By: #### L [id number] ####[facility] [id number] [place] [address] [facility] HCO3 (Bld) [Moles/Vol] 31.3 mmol/L High 21.0-28.0 [facility] Comment on above: Performed By: #### L [id number] ####[facility] [id number] [place] [address] [facility] Oxygen (Bld) [Partial pressure] 70 mm[Hg] Low 83-100 [facility] Comment on above: Performed By: #### L [id number] ####[facility] [id number] [place] [address] [facility] OXYGEN SATURATION (%) IN ARTERIAL BLOOD 94.9 % Normal 94.0-98.0 [facility] Comment on above: Performed By: #### L [id number] ####[facility] [id number] [place] [address] [facility] PEEP 8 cmH2O Normal [facility] Comment on above: Performed By: #### L [id number] ####[facility] [id number] [place] [address] [facility] pH (Bld) 7.45 [pH] Normal 7.35-7.45 [facility] Comment on above: Performed By: #### L [id number] ####[facility] [id number] [place] [address] [facility] PRESSURE SUPPORT 14 Normal [facility] Comment on above: Performed By: #### L [id number] ####[facility] [id number] [place] [address] [facility] SOURCE OF OXYGEN Bi-PAP Normal [facility] Comment on above: Performed By: #### L [id number] ####[facility] [id number] [place] [address] [facility] BASIC METABOLIC PANELon 02-0 Anion gap [Moles/Vol] 11 mmol/L Normal 7-20 [facility] Comment on above: Performed By: #### L [id number] ####[facility] ([facility])[address] [place] [address] Calcium [Mass/Vol] 9.4 mg/dL Normal 8.6-10.3 [facility] Comment on above: Performed By: #### L [id number] ####[facility] ([facility])[address] [place] [address] Chloride [Moles/Vol] 101 mmol/L Normal 98-107 [facility] Comment on above: Performed By: #### L [id number] ####[facility] ([facility])[address] [place] [address] CO2 [Moles/Vol] 30 mmol/L Normal 21-31 [facility] Comment on above: Performed By: #### L [id number] ####[facility] ([facility])[address] [place] [address] Creatinine [Mass/Vol] 1.05 mg/dL Normal 0.70-1.30 [facility] Comment on above: Performed By: #### L [id number] ####[facility] ([facility] [place] [address] GLOMERULAR FILTRATION RATE ML/MIN/1.73 SQ M.PREDICTED 78.8 mL/min/1.73m*2 Normal >60.0 [facility] Comment on above: Result Comment: [facility]???s estimated glomerular filtration rate (eGFR) will no [...] of individuals. Performed By: #### L [id number] ####[facility] ([facility])[address] [place] [address] Glucose [Mass/Vol] 269 mg/dL High 70-100 [facility] Comment on above: Performed By: #### L [id number] ####[facility] ([facility])[address] [place] [address] Potassium [Moles/Vol] 4.0 mmol/L Normal 3.5-5.1 [facility] Comment on above: Performed By: #### L [id number] ####[facility] ([facility])[address] [place] [address] Sodium [Moles/Vol] 138 mmol/L Normal 136-145 [facility] Comment on above: Performed By: #### L [id number] ####[facility] ([facility])[address] [place] [address] Urea nitrogen [Mass/Vol] 35 mg/dL High 7-25 [facility] Comment on above: Performed By: #### L [id number] ####[facility] ([facility])[address] [place] [address] UREA NITROGEN/CREATININE (MASS RATIO) IN SER/PLAS 33.3 Normal [facility] Comment on above: Performed By: #### L [id number] ####[facility] ([facility])[address] [place] [address] CALCIUM, IONIZEDon CALCIUM IONIZED (MMOL/L) IN BLOOD 1.29 mmol/L Normal 1.15-1.33 [facility] Comment on above: Performed By: #### C ALCIUM, IONIZED ####[facility] [id number] [place] [address] [place] CBC WITH AUTO DIFFERENTIALon 08-21-2024 Basophils (Bld) [#/Vol] 0.05 10*3/uL Normal 0.00-0.20 [facility] Comment on above: Performed By: #### L [id number] ####[facility] ([facility])[address] [place] [address] Basophils/100 WBC (Bld) 0.6 % Normal 0.0-1.0 [facility] Comment on above: Performed By: #### L [id number] ####[facility] ([facility])[address] [place] [address] Eosinophils (Bld) [#/Vol] 0.43 10*3/uL Normal 0.00-0.50 [facility] [facility] Comment on above: Performed By: #### L [id number] ####[facility] (BEAKER)[address] [place] [address] Eosinophils/100 WBC (Bld) 5.2 % Normal 0.0-6.0 [facility] Comment on above: Performed By: #### L [id number] ####[facility] ([facility]AKER)[address] [place] [address] Erythrocyte distribution width (RBC) [Ratio] 14.8 % Normal 11.5-15.0 [facility] Comment on above: Performed By: #### L [id number] ####[facility] (BEAKER)[address] [place] [address] ERYTHROCYTE MEAN CORPUSCULAR HEMOGLOBIN CONCENTRATION (G/DL) BY AUTOMATED 31.1 g/dL Low 32.0-35.0 [facility] Comment on above: Performed By: #### L [id number] ####[facility] (BE[facility]ER)[address] [place] [address] Hematocrit (Bld) [Volume fraction] 52.1 % Normal 39.0-55.0 [facility] Comment on above: Performed By: #### L [id number] ####[facility] (BEAKER)[address] [place] [address] Hemoglobin (Bld) [Mass/Vol] 16.2 g/dL Normal 13.0-17.0 [facility] Comment on above: Performed By: #### L [id number] ####[facility] (BE[facility]ER)[address] [place] [address] Immature granulocytes (Bld) [#/Vol] 0.06 10*3/uL Normal 0.00-0.20 [facility] Comment on above: Performed By: #### L [id number] ####[facility] (BEAKER)[address] [place] [address] Immature granulocytes/100 WBC (Bld) 0.7 % Normal 0.0-1.0 [facility] Comment on above: Performed By: #### L [id number] ####[facility] ([facility]AKER)[address] [place] [address] Lymphocytes (Bld) [#/Vol] 1.10 10*3/uL Low 1.20-4.00 [facility] Comment on above: Performed By: #### L [id number] ####[facility] (BEAKER)[address] [place] [address] Lymphocytes/100 WBC (Bld) 13.3 % Low 20.0-45.0 [facility] Comment on above: Performed By: #### L [id number] ####[facility] (BEAKER)[address] [place] [address] MCH (RBC) [Entitic mass] 29.1 pg Normal 27.0-33.0 [facility] Comment on above: Performed By: #### L [id number] ####[facility] (BEAKER)[address] [place] [address] MCV (RBC) [Entitic vol] 93.7 fL Normal 82.0-98.0 [facility] Comment on above: Performed By: #### L [id number] ####[facility] ([facility]ER)[address] [place] [address] Monocytes (Bld) [#/Vol] 0.92 10*3/uL Normal 0.10-1.00 [facility] Comment on above: Performed By: #### L [id number] ####[facility] (BEAKER)[address] [place] [address] Monocytes/100 WBC (Bld) 11.1 % Normal 5.0-12.0 [facility] Comment on above: Performed By: #### L [id number] ####[facility] ([facility])[address] [place] [address] Neutrophils (Bld) [#/Vol] 5.72 10*3/uL Normal 1.60-7.60 [facility] Comment on above: Performed By: #### L [id number] ####[facility] ([facility])[address] [place] [address] Neutrophils/100 WBC (Bld) 69.1 % Normal 40.0-72.0 [facility] Comment on above: Performed By: #### L [id number] ####[facility] ([facility])[address] [place] [address] NRBC (PER 100 WBCS) BY AUTOMATED COUNT 0.0 % Normal 0 [facility] Comment on above: Performed By: #### L [id number] ####[facility] ([facility])[address] [place] [address] PLATELETS (10*3/UL) IN BLOOD AUTOMATED COUNT 199 10*3/uL Normal 150-400 [facility] Comment on above: Performed By: #### L [id number] ####[facility] ([facility])[address] [place] [address] RBC (Bld) [#/Vol] 5.56 10*6/uL Normal 4.20-5.70 [facility] Comment on above: Performed By: #### L [id number] ####[facility] ([facility])[address] [place] [address] WBC (Bld) [#/Vol] 8.28 10*3/uL Normal 4.00-10.60 [facility] Comment on above: Performed By: #### L [id number] ####[facility] (BEAKER)[address] [place] [address] CT BRAIN PERFUSIONon 025 CT BRAIN PERFUSION Invalid Interpretation Code [facility] CT HEAD WO IV CONTRASTon CT HEAD WO IV CONTRAST [facility] HEAD W IV CONTRASTon CTA HEAD W IV CONTRAST Normal [facility] CTA NECK W IV CONTRASTon CTA NECK W IV CONTRAST Normal [facility] MAGNESIUMon 08-21-2024 Magnesium [Mass/Vol] 1.8 mg/dL Low 1.9-2.7 [facility] Comment on above: Performed By: #### L [id number] ####[facility] (BEAKER)[address] [place] [address] MRSA/MSSA DNA NASALon 2024 MRSA DNA Positive Abnormal Negative [facility] Comment on above: Order Comment: Testi ng [...] preclude nasal colonization. Performed By: #### L [id number] ####[facility] (BEAKER)[address] [place] [address] MSSA DNA Negative Normal Negative [facility] Comment on above: Order Comment: Testi ng [...] preclude nasal colonization. Performed By: #### L [id number] ####[facility] (BEAKER)[address] [place] [address] PHOSPHORUSon 08-21-2024 Magnesium [Mass/Vol] 2.5 mg/dL Normal 2.5-5.0 [facility] Comment on above: Performed By: #### L [id number] ####[facility] ([facility])[address] [place] [address] POCT GLUCOSE METER UNSOLICIT ED RESULTSon 08-21-2024 Glucose [Mass/Vol] 230 mg/dL High 70-105 [facility] Comment on above: Order Comment: Waive d Testing in the ED is performed under the ED CLIA certificate #[id number]. Result Comment: [email or web address] Performed By: #### L [id number] ####[facility] ([facility])[address] [place] [address] Glucose [Mass/Vol] 226 mg/dL High 70-105 [facility] Comment on above: Order Comment: Waive d Testing in the ED is performed under the ED CLIA certificate #[id number]. Result Comment: [email or web address] Performed By: #### L [id number] ####[facility] ([facility])[address] [place] [address] Glucose [Mass/Vol] 229 mg/dL High 70-105 [facility] Comment on above: Order Comment: Waive d Testing in the ED is performed under the ED CLIA certificate #[id number]. Result Comment: [email or web address] Performed By: #### L [id number] ####[facility] ([facility])[address] [place] [address] Glucose [Mass/Vol] 234 mg/dL High 70-105 [facility] Comment on above: Order Comment: Waive d Testing in the ED is performed under the ED CLIA certificate #[id number]. Result Comment: [email or web address] Performed By: #### L [id number] ####[facility] ([facility])[address] [place] [address] POTASSIUM, WHOLE BLOODon Potassium [Moles/Vol] 3.3 mmol/L Low 3.5-5.1 [facility] Comment on above: Performed By: #### P OTASSIUM, WHOLE BLOOD ####[facility] [id number] [place] [address] [place] SODIUM, WHOLE BLOODon 2024 SODIUM, WHOLE BLOOD 137 Normal 136-145 [facility] Comment on above: Performed By: #### S ODIUM, WHOLE BLOOD ####[facility] [id number] [place] [address] [place] 30on 08-20-2024 30 Normal [facility] ANTI-XA (HEPARIN LEVEL)on HEPARIN UNFRACTIONATED (U/ML) IN PPP BY CHROMOGENIC METHOD 0.30 IU/mL Normal 0.3-0.7 [facility] Comment on above: Result Comment: Tatyana roxaban and Apixaban will interfere with the anti Xa assay used to monitor UFH and LMWH. Performed By: #### L [id number] ####[facility] ([facility]AKER)[address] [place] [address] BASIC METABOLIC PANELon 07-23 Anion gap [Moles/Vol] 8 mmol/L Normal 7-20 [facility] Comment on above: Performed By: #### L [id number] ####[facility] ([facility]AKER)[address] [facility] [address] Calcium [Mass/Vol] 9.4 mg/dL Normal 8.6-10.3 [facility] Comment on above: Performed By: #### L [id number] ####[facility] ([facility]ER)[address] [place] [address] Chloride [Moles/Vol] 99 mmol/L Normal 98-107 [facility] Comment on above: Performed By: #### L [id number] ####[facility] ([facility]ER)[address] [facility] [address] CO2 [Moles/Vol] 34 mmol/L High -31 [facility] Comment on above: Performed By: #### L [id number] ####[facility] ([facility]ER)[address] [facility] [address] Creatinine [Mass/Vol] 0.97 mg/dL Normal 0.70-1.30 [facility] Comment on above: Performed By: #### L [id number] ####[facility] ([facility])[address] [place] [address] GLOMERULAR FILTRATION RATE ML/MIN/1.73 SQ M.PREDICTED 86.6 mL/min/1.73m*2 Normal >60.0 [facility] Comment on above: Result Comment: [facility]???s estimated glomerular filtration rate (eGFR) will no [...] of individuals. Performed By: #### L [id number] ####[facility] ([facility])[address] [place] [address] Glucose [Mass/Vol] 267 mg/dL High 70-100 [facility] Comment on above: Performed By: #### L [id number] ####[facility] ([facility])[address] [place] [address] Potassium [Moles/Vol] 3.9 mmol/L Normal 3.5-5.1 [facility] Comment on above: Performed By: #### L [id number] ####[facility] ([facility])[address] [place] [address] Sodium [Moles/Vol] 137 mmol/L Normal 136-145 [facility] Comment on above: Performed By: #### L [id number] ####[facility] ([facility])[address] [place] [address] Urea nitrogen [Mass/Vol] 33 mg/dL High 7-25 [facility] Comment on above: Performed By: #### L [id number] ####[facility] ([facility])[address] [place] [address] UREA NITROGEN/CREATININE (MASS RATIO) IN SER/PLAS 34.0 Normal [facility] Comment on above: Performed By: #### L [id number] ####[facility] ([facility])[address] [place] [address] CBC WITH AUTO DIFFERENTIALon 08-20-2024 Basophils (Bld) [#/Vol] 0.04 10*3/uL Normal 0.00-0.20 [facility] Comment on above: Performed By: #### L [id number] ####[facility] ([facility])[address] [place] [address] Basophils/100 WBC (Bld) 0.4 % Normal 0.0-1.0 [facility] Comment on above: Performed By: #### L [id number] ####[facility] ([facility])[address] [place] [address] Eosinophils (Bld) [#/Vol] 0.58 10*3/uL High 0.00-0.50 [facility] Comment on above: Performed By: #### L [id number] ####[facility] ([facility])[address] [place] [address] Eosinophils/100 WBC (Bld) 5.6 % Normal 0.0-6.0 [facility] Comment on above: Performed By: #### L [id number] ####[facility] ([facility])[address] [place] [address] Erythrocyte distribution width (RBC) [Ratio] 15.1 % High 11.5-15.0 [facility] Comment on above: Performed By: #### L [id number] ####[facility] ([facility])[address] [place] [address] ERYTHROCYTE MEAN CORPUSCULAR HEMOGLOBIN CONCENTRATION (G/DL) BY AUTOMATED 30.5 g/dL Low 32.0-35.0 [facility] Comment on above: Performed By: #### L [id number] ####[facility] (BEAKER)[address] [place] [address] Hematocrit (Bld) [Volume fraction] 52.1 % Normal 39.0-55.0 [facility] Comment on above: Performed By: #### L [id number] ####[facility] (BEAKER)[address] [place] [address] Hemoglobin (Bld) [Mass/Vol] 15.9 g/dL Normal 13.0-17.0 [facility] Comment on above: Performed By: #### L [id number] ####[facility] (BEAKER)[address] [place] [address] Immature granulocytes (Bld) [#/Vol] 0.07 10*3/uL Normal 0.00-0.20 [facility] Comment on above: Performed By: #### L [id number] ####[facility] (BEAKER)[address] [place] [address] Immature granulocytes/100 WBC (Bld) 0.7 % Normal 0.0-1.0 [facility] Comment on above: Performed By: #### L [id number] ####[facility] (BEAKER)[address] [place] [address] Lymphocytes (Bld) [#/Vol] 0.94 10*3/uL Low 1.20-4.00 [facility] Comment on above: Performed By: #### L [id number] ####[facility] (BEAKER)[address] [place] [address] Lymphocytes/100 WBC (Bld) 9.1 % Low 20.0-45.0 [facility] Comment on above: Performed By: #### L [id number] ####[facility] (BEAKER)[address] [place] [address] MCH (RBC) [Entitic mass] 29.0 pg Normal 27.0-33.0 [facility] Comment on above: Performed By: #### L [id number] ####[facility] (BEAKER)[address] [place] [address] MCV (RBC) [Entitic vol] 94.9 fL Normal 82.0-98.0 [facility] Comment on above: Performed By: #### L [id number] ####[facility] ([facility])[address] [place] [address] Monocytes (Bld) [#/Vol] 0.95 10*3/uL Normal 0.10-1.00 [facility] Comment on above: Performed By: #### L [id number] ####[facility] ([facility])[address] [place] [address] Monocytes/100 WBC (Bld) 9.2 % Normal 5.0-12.0 [facility] Comment on above: Performed By: #### L [id number] ####[facility] ([facility])[address] [place] [address] Neutrophils (Bld) [#/Vol] 7.72 10*3/uL High 1.60-7.60 [facility] Comment on above: Performed By: #### L [id number] ####[facility] ([facility])[address] [place] [address] Neutrophils/100 WBC (Bld) 75.0 % High 40.0-72.0 [facility] Comment on above: Performed By: #### L [id number] ####[facility] ([facility])[address] [place] [address] NRBC (PER 100 WBCS) BY AUTOMATED COUNT 0.0 % Normal 0 [facility] Comment on above: Performed By: #### L [id number] ####[facility] ([facility])[address] [place] [address] PLATELETS (10*3/UL) IN BLOOD AUTOMATED COUNT 209 10*3/uL Normal 150-400 [facility] Comment on above: Performed By: #### L [id number] ####[facility] ([facility])[address] [place] [address] RBC (Bld) [#/Vol] 5.49 10*6/uL Normal 4.20-5.70 [facility] Comment on above: Performed By: #### L [id number] ####[facility] ([facility])[address] [place] [address] WBC (Bld) [#/Vol] 10.30 10*3/uL Normal 4.00-10.60 [facility] Comment on above: Performed By: #### L [id number] ####[facility] ([facility])[address] [place] [address] MAGNESIUMon 08-20-2024 Magnesium [Mass/Vol] 1.9 mg/dL Normal 1.9-2.7 [facility] Comment on above: Performed By: #### L [id number] ####[facility] ([facility])[address] [place] [address] PHOSPHORUSon 08-20-2024 Magnesium [Mass/Vol] 2.1 mg/dL Low 2.5-5.0 [facility] Comment on above: Performed By: #### L [id number] ####[facility] ([facility])[address] [place] [address] POCT GLUCOSE METER UNSOLICIT ED RESULTSon 08-20-2024 Glucose [Mass/Vol] 268 mg/dL High 70-105 [facility] Comment on above: Order Comment: Waive d Testing in the ED is performed under the ED CLIA certificate #[id number]. Result Comment: [email or web address] [email or web address] Performed By: #### L [id number] ####[facility] ([facility])[address] [place] [address] 30on 08-19-2024 30 Normal [facility] 30 Normal [facility] ANTI-XA (HEPARIN LEVEL)on HEPARIN UNFRACTIONATED (U/ML) IN PPP BY CHROMOGENIC METHOD 0.41 IU/mL Normal 0.3-0.7 [facility] Comment on above: Result Comment: Adams roxaban and Apixaban will interfere with the anti Xa assay used to monitor UFH and LMWH. Performed By: #### L [id number] ####[facility] ([facility])[address] [place] [address] BASIC METABOLIC PANELon 01-3 0 Anion gap [Moles/Vol] 8 mmol/L Normal 7-20 [facility] Comment on above: Performed By: #### L [id number] ####[facility] (BEAKER)[address] [place] [address] Calcium [Mass/Vol] 8.9 mg/dL Normal 8.6-10.3 [facility] Comment on above: Performed By: #### L [id number] ####[facility] ([facility])[address] [place] [address] Chloride [Moles/Vol] 99 mmol/L Normal 98-107 [facility] Comment on above: Performed By: #### L [id number] ####[facility] (BEAKER)[address] [place] [address] CO2 [Moles/Vol] 37 mmol/L High 21-31 [facility] Comment on above: Performed By: #### L [id number] ####[facility] ([facility])[address] [place] [address] Creatinine [Mass/Vol] 1.00 mg/dL Normal 0.70-1.30 [facility] Comment on above: Performed By: #### L [id number] ####[facility] ([facility])[address] [place] [address] GLOMERULAR FILTRATION RATE ML/MIN/1.73 SQ M.PREDICTED 83.5 mL/min/1.73m*2 Normal >60.0 [facility] Comment on above: Result Comment: [facility]???s estimated glomerular filtration rate (eGFR) will no [...] of individuals. Performed By: #### L [id number] ####[facility] ([facility])[address] [place] [address] Glucose [Mass/Vol] 219 mg/dL High 70-100 [facility] Comment on above: Performed By: #### L [id number] ####[facility] ([facility])[address] [place] [address] Potassium [Moles/Vol] 3.9 mmol/L Normal 3.5-5.1 [facility] Comment on above: Performed By: #### L [id number] ####[facility] ([facility])[address] [place] [address] Sodium [Moles/Vol] 140 mmol/L Normal 136-145 [facility] Comment on above: Performed By: #### L [id number] ####[facility] ([facility])[address] [place] [address] Urea nitrogen [Mass/Vol] 28 mg/dL High 7-25 [facility] Comment on above: Performed By: #### L [id number] ####[facility] ([facility])[address] [place] [address] UREA NITROGEN/CREATININE (MASS RATIO) IN SER/PLAS 28.0 Normal [facility] Comment on above: Performed By: #### L [id number] ####[facility] ([facility])[address] [place] [address] CBC WITH AUTO DIFFERENTIALon 08-19-2024 Basophils (Bld) [#/Vol] 0.04 10*3/uL Normal 0.00-0.20 [facility] Comment on above: Performed By: #### L [id number] ####[facility] ([facility])[address] [place] [address] Basophils/100 WBC (Bld) 0.4 % Normal 0.0-1.0 [facility] Comment on above: Performed By: #### L [id number] ####[facility] ([facility])[address] [place] [address] Eosinophils (Bld) [#/Vol] 0.62 10*3/uL High 0.00-0.50 [facility] Comment on above: Performed By: #### L [id number] ####[facility] (BEAKER)[address] [place] [address] Eosinophils/100 WBC (Bld) 6.7 % High 0.0-6.0 [facility] Comment on above: Performed By: #### L [id number] ####[facility] (BEAKER)[address] [place] [address] Erythrocyte distribution width (RBC) [Ratio] 15.4 % High 11.5-15.0 [facility] Comment on above: Performed By: #### L [id number] ####[facility] (BEAKER)[address] [place] [address] ERYTHROCYTE MEAN CORPUSCULAR HEMOGLOBIN CONCENTRATION (G/DL) BY AUTOMATED 29.8 g/dL Low 32.0-35.0 [facility] Comment on above: Performed By: #### L [id number] ####[facility] (BE[facility]ER)[address] [place] [address] Hematocrit (Bld) [Volume fraction] 49.4 % Normal 39.0-55.0 [facility] Comment on above: Performed By: #### L [id number] ####[facility] (BE[facility]ER)[address] [place] [address] Hemoglobin (Bld) [Mass/Vol] 14.7 g/dL Normal 13.0-17.0 [facility] Comment on above: Performed By: #### L [id number] ####[facility] ([facility]ER)[address] [place] [address] Immature granulocytes (Bld) [#/Vol] 0.06 10*3/uL Normal 0.00-0.20 [facility] Comment on above: Performed By: #### L [id number] ####[facility] ([facility]ER)[address] [place] [address] Immature granulocytes/100 WBC (Bld) 0.7 % Normal 0.0-1.0 [facility] Comment on above: Performed By: #### L [id number] ####[facility] ([facility])[address] [place] [address] Lymphocytes (Bld) [#/Vol] 0.86 10*3/uL Low 1.20-4.00 [facility] Comment on above: Performed By: #### L [id number] ####[facility] ([facility])[address] [place] [address] Lymphocytes/100 WBC (Bld) 9.3 % Low 20.0-45.0 [facility] Comment on above: Performed By: #### L [id number] ####[facility] ([facility])[address] [place] [address] MCH (RBC) [Entitic mass] 28.9 pg Normal 27.0-33.0 [facility] Comment on above: Performed By: #### L [id number] ####[facility] ([facility])[address] [place] [address] MCV (RBC) [Entitic vol] 97.2 fL Normal 82.0-98.0 [facility] Comment on above: Performed By: #### L [id number] ####[facility] ([facility])[address] [place] [address] Monocytes (Bld) [#/Vol] 0.94 10*3/uL Normal 0.10-1.00 [facility] Comment on above: Performed By: #### L [id number] ####[facility] ([facility]AKER)[address] [place] [address] Monocytes/100 WBC (Bld) 10.2 % Normal 5.0-12.0 [facility] Comment on above: Performed By: #### L [id number] ####[facility] (BEAKER)[address] [place] [address] Neutrophils (Bld) [#/Vol] 6.68 10*3/uL Normal 1.60-7.60 [facility] Comment on above: Performed By: #### L [id number] ####[facility] ([facility])[address] [address] Neutrophils/100 WBC (Bld) 72.7 % High 40.0-72.0 [facility] Comment on above: Performed By: #### L [id number] ####[facility] ([facility])[address] [address] NRBC (PER 100 WBCS) BY AUTOMATED COUNT 0.0 % Normal 0 [facility] Comment on above: Performed By: #### L [id number] ####[facility] ([facility])[address] [address] PLATELETS (10*3/UL) IN BLOOD AUTOMATED COUNT 198 10*3/uL Normal 150-400 [facility] Comment on above: Performed By: #### L [id number] ####[facility] ([facility])[address] [address] RBC (Bld) [#/Vol] 5.08 10*6/uL Normal 4.20-5.70 [facility] Comment on above: Performed By: #### L [id number] ####[facility] ([facility])[address] [address] WBC (Bld) [#/Vol] 9.20 10*3/uL Normal 4.00-10.60 [facility] Comment on above: Performed By: #### L [id number] ####[facility] ([facility])[address] [address] CONSULTon 08-19-2024 CONSULT Normal [facility] MAGNESIUMon 08-19-2024 Magnesium [Mass/Vol] 1.9 mg/dL Normal 1.9-2.7 [facility] Comment on above: Performed By: #### L [id number] ####[facility] (BEAKER)[address] [address] PHOSPHORUSon 08-19-2024 Magnesium [Mass/Vol] 2.9 mg/dL Normal 2.5-5.0 [facility] Comment on above: Performed By: #### L [id number] ####[facility] ([employer]ishThis)[address] [place]OSolid[employer] PartnersSELECT [place] [address] POCT GLUCOSE METER UNSOLICIT ED RESULTSon 08-19-2024 Glucose [Mass/Vol] 239 mg/dL High 70-105 [facility] Comment on above: Order Comment: Waive d Testing in the ED is performed under the ED CLIA certificate #[id number]. Result Comment: [email or web address] Performed By: #### L [id number] ####[facility] ([employer])[address] [place] [place] [address] Glucose [Mass/Vol] 251 mg/dL High 70-105 [facility] Comment on above: Order Comment: Waive d Testing in the ED is performed under the ED CLIA certificate #[id number]. Result Comment: [email or web address] Performed By: #### L [id number] ####[facility] ([employer])[address] [place] [address] Glucose [Mass/Vol] 185 mg/dL High 70-105 [facility] Comment on above: Order Comment: Waive d Testing in the ED is performed under the ED CLIA certificate #[id number]. Result Comment: [email or web address] Performed By: #### L [id number] ####[facility] ([employer])[address] Plan B FundingSELECT [place] [address] TRIGLYCERIDESon 08-19-2024 FASTING? UNKNOWN Normal [facility] Comment on above: Performed By: #### L [id number] ####[facility] ([employer])[address] B FundingSELECT [place] [address] Magnesium [Mass/Vol] 192 mg/dL High 40-149 [facility] Comment on above: Result Comment: TRIG LYCERIDE REFERENCE RANGE:20 YEARS AND OLDER CARDIOVASCULAR RISKLESS THAN 150 mg/dL LOW [id number] TO 199 mg/dL BORDERLINE [id number] mg/dL AND GREATER HIGH RISK Performed By: #### L [id number] ####[facility] ([facility])[address] [place] [address] ANTI-XA (HEPARIN LEVEL)on HEPARIN UNFRACTIONATED (U/ML) IN PPP BY CHROMOGENIC METHOD 0.50 IU/mL Normal 0.3-0.7 [facility] Comment on above: Result Comment: Tatyana roxaban and Apixaban will interfere with the anti Xa assay used to monitor UFH and LMWH. Performed By: #### L [id number] ####[facility] ([facility])[address] [place] [address] HEPARIN UNFRACTIONATED (U/ML) IN PPP BY CHROMOGENIC METHOD 0.60 IU/mL Normal 0.3-0.7 [facility] Comment on above: Result Comment: Adams roxaban and Apixaban will interfere with the anti Xa assay used to monitor UFH and LMWH. Performed By: #### L [id number] ####[facility] ([facility])[address] [place] [address] BASIC METABOLIC PANELon 07-22 Anion gap [Moles/Vol] 8 mmol/L Normal 7-20 [facility] Comment on above: Performed By: #### L [id number] ####[facility] ([facility])[address] [place] [address] Calcium [Mass/Vol] 8.7 mg/dL Normal 8.6-10.3 [facility] Comment on above: Performed By: #### L [id number] ####[facility] ([facility])[address] [place] [address] Chloride [Moles/Vol] 98 mmol/L Normal 98-107 [facility] Comment on above: Performed By: #### L [id number] ####[facility] ([facility])[address] [place] [address] CO2 [Moles/Vol] 41 mmol/L Critically high 21-31 [facility] Comment on above: Performed By: #### L [id number] ####[facility] ([facility])[address] [place] [address] Creatinine [Mass/Vol] 1.05 mg/dL Normal 0.70-1.30 [facility] Comment on above: Performed By: #### L [id number] ####[facility] ([facility])[address] [place] [address] GLOMERULAR FILTRATION RATE ML/MIN/1.73 SQ M.PREDICTED 78.8 mL/min/1.73m*2 Normal >60.0 [facility] Comment on above: Result Comment: [facility]???s estimated glomerular filtration rate (eGFR) will no [...] of individuals. Performed By: #### L [id number] ####[facility] ([facility])[address] [place] [address] Glucose [Mass/Vol] 201 mg/dL High 70-100 [facility] Comment on above: Performed By: #### L [id number] ####[facility] ([facility])[address] [place] [address] Potassium [Moles/Vol] 3.7 mmol/L Normal 3.5-5.1 [facility] Comment on above: Performed By: #### L [id number] ####[facility] ([facility])[address] [place] [address] Sodium [Moles/Vol] 143 mmol/L Normal 136-145 [facility] Comment on above: Performed By: #### L [id number] ####[facility] ([facility])[address] [place] [address] Urea nitrogen [Mass/Vol] 25 mg/dL Normal 7-25 [facility] Comment on above: Performed By: #### L [id number] ####[facility] ([facility])[address] [place] [address] UREA NITROGEN/CREATININE (MASS RATIO) IN SER/PLAS 23.8 Normal [facility] Comment on above: Performed By: #### L [id number] ####[facility] ([facility])[address] [place] [address] CBC WITH AUTO DIFFERENTIALon 08-18-2024 Basophils (Bld) [#/Vol] 0.03 10*3/uL Normal 0.00-0.20 [facility] Comment on above: Performed By: #### L [id number] ####[facility] ([facility])[address] [place] [address] Basophils/100 WBC (Bld) 0.3 % Normal 0.0-1.0 [facility] Comment on above: Performed By: #### L [id number] ####[facility] ([facility])[address] [place] [address] Eosinophils (Bld) [#/Vol] 0.45 10*3/uL Normal 0.00-0.50 [facility] Comment on above: Performed By: #### L [id number] ####[facility] ([facility])[address] [place] [address] Eosinophils/100 WBC (Bld) 5.0 % Normal 0.0-6.0 [facility] Comment on above: Performed By: #### L [id number] ####[facility] ([facility])[address] [place] [address] Erythrocyte distribution width (RBC) [Ratio] 15.5 % High 11.5-15.0 [facility] Comment on above: Performed By: #### L [id number] ####[facility] ([facility])[address] [place] [address] ERYTHROCYTE MEAN CORPUSCULAR HEMOGLOBIN CONCENTRATION (G/DL) BY AUTOMATED 29.7 g/dL Low 32.0-35.0 [facility] Comment on above: Performed By: #### L [id number] ####[facility] (BEAKER)[address] [place] [address] Hematocrit (Bld) [Volume fraction] 49.5 % Normal 39.0-55.0 [facility] Comment on above: Performed By: #### L [id number] ####[facility] (BEAKER)[address] [place] [address] Hemoglobin (Bld) [Mass/Vol] 14.7 g/dL Normal 13.0-17.0 [facility] Comment on above: Performed By: #### L [id number] ####[facility] (BE[facility]ER)[address] [place] [address] Immature granulocytes (Bld) [#/Vol] 0.05 10*3/uL Normal 0.00-0.20 [facility] Comment on above: Performed By: #### L [id number] ####[facility] (BEAKER)[address] [place] [address] Immature granulocytes/100 WBC (Bld) 0.6 % Normal 0.0-1.0 [facility] Comment on above: Performed By: #### L [id number] ####[facility] ([facility]AKER)[address] [place] [address] Lymphocytes (Bld) [#/Vol] 0.93 10*3/uL Low 1.20-4.00 [facility] Comment on above: Performed By: #### L [id number] ####[facility] (BEAKER)[address] [place] [address] Lymphocytes/100 WBC (Bld) 10.4 % Low 20.0-45.0 [facility] Comment on above: Performed By: #### L [id number] ####[facility] (BEAKER)[address] [place] [address] MCH (RBC) [Entitic mass] 29.2 pg Normal 27.0-33.0 [facility] Comment on above: Performed By: #### L [id number] ####[facility] (BEAKER)[address] [place] [address] MCV (RBC) [Entitic vol] 98.2 fL High 82.0-98.0 [facility] Comment on above: Performed By: #### L [id number] ####[facility] (BEAKER)[address] [place] [address] Monocytes (Bld) [#/Vol] 1.06 10*3/uL High 0.10-1.00 [facility] Comment on above: Performed By: #### L [id number] ####[facility] ([facility])[address] [place] [address] Monocytes/100 WBC (Bld) 11.9 % Normal 5.0-12.0 [facility] Comment on above: Performed By: #### L [id number] ####[facility] (BEAKER)[address] [place] [address] Neutrophils (Bld) [#/Vol] 6.41 10*3/uL Normal 1.60-7.60 [facility] Comment on above: Performed By: #### L [id number] ####[facility] ([facility])[address] [place] [address] Neutrophils/100 WBC (Bld) 71.8 % Normal 40.0-72.0 [facility] Comment on above: Performed By: #### L [id number] ####[facility] (BEAKER)[address] [place] [address] NRBC (PER 100 WBCS) BY AUTOMATED COUNT 0.0 % Normal 0 [facility] Comment on above: Performed By: #### L [id number] ####[facility] (BEAKER)[address] [place] [address] PLATELETS (10*3/UL) IN BLOOD AUTOMATED COUNT 208 10*3/uL Normal 150-400 [facility] Comment on above: Performed By: #### L [id number] ####[facility] ([facility]AKER)[address] [place] [address] RBC (Bld) [#/Vol] 5.04 10*6/uL Normal 4.20-5.70 [facility] Comment on above: Performed By: #### L [id number] ####[facility] ([facility])[address] [place] [address] WBC (Bld) [#/Vol] 8.93 10*3/uL Normal 4.00-10.60 [facility] Comment on above: Performed By: #### L [id number] ####[facility] ([facility])[address] [place] [address] CONSULTon 08-18-2024 CONSULT Normal [facility] MAGNESIUMon 08-18-2024 Magnesium [Mass/Vol] 2.1 mg/dL Normal 1.9-2.7 [facility] Comment on above: Performed By: #### L [id number] ####[facility] ([facility])[address] [place] [address] PHOSPHORUSon 08-18-2024 Magnesium [Mass/Vol] 2.9 mg/dL Normal 2.5-5.0 [facility] Comment on above: Performed By: #### L [id number] ####[facility] ([facility])[address] [place] [address] POCT GLUCOSE METER UNSOLICIT ED RESULTSon 08-18-2024 Glucose [Mass/Vol] 194 mg/dL High 70-105 [facility] Comment on above: Order Comment: Waive d Testing in the ED is performed under the ED CLIA certificate #[id number]. Result Comment: [email or web address] [email or web address] Performed By: #### L [id number] ####[facility] ([facility])[address] [place] [address] Glucose [Mass/Vol] 183 mg/dL High 70-105 [facility] Comment on above: Order Comment: Waive d Testing in the ED is performed under the ED CLIA certificate #[id number]. Result Comment: ezab ors2 Performed By: #### L [id number] ####[facility] ([facility])[address] [place] [address] Glucose [Mass/Vol] 173 mg/dL High 70-105 [facility] Comment on above: Order Comment: Waive d Testing in the ED is performed under the ED CLIA certificate #[id number]. Result Comment: justinab ors2 Performed By: #### L [id number] ####[facility] ([facility])[address] [place] [address] Glucose [Mass/Vol] 200 mg/dL High 70-105 [facility] Comment on above: Order Comment: Waive d Testing in the ED is performed under the ED CLIA certificate #[id number]. Result Comment: [email or web address] [email or web address] Performed By: #### L [id number] ####[facility] ([facility])[address] [place] [address] SPUTUM CULTUREon 08-18-2024 Clindamycin [Susc] <=0.5 Susceptible [facility] Comment on above: Performed By: #### L [id number] ####[facility] ([facility])[address] [place] [address] DAPTOmycin [Susc] <=1 Susceptible [facility] Comment on above: Performed By: #### L [id number] ####[facility] ([facility])[address] [place] [address] Linezolid [Susc] <=1 Susceptible [facility] Comment on above: Performed By: #### L [id number] ####[facility] ([facility])[address] [place] [address] Oxacillin [Susc] >2 Resistant [facility] Comment on above: Performed By: #### L [id number] ####[facility] ([facility])[address] [place] [address] Tetracycline [Susc] <=0.5 Susceptible [facility] Comment on above: Performed By: #### L [id number] ####[facility] ([facility])[address] [place] [address] Trimethoprim+Sulfameth oxazole [Susc] <=0.5/9.5 Susceptible [facility] Comment on above: Performed By: #### L [id number] ####[facility] (BEAKER)[address] [place] [address] Vancomycin [Susc] <=0.5 Susceptible [facility] Comment on above: Performed By: #### L [id number] ####[facility] ([facility])[address] [place] [address] TRIGLYCERIDESon 08-18-2024 FASTING? unknown Normal [facility] Comment on above: Performed By: #### L [id number] ####[facility] ([facility])[address] [address] Magnesium [Mass/Vol] 154 mg/dL High 40-149 [facility] Comment on above: Result Comment: TRIG LYCERIDE REFERENCE RANGE:20 YEARS AND OLDER CARDIOVASCULAR RISKLESS THAN 150 mg/dL LOW [id number] TO 199 mg/dL BORDERLINE [id number] mg/dL AND GREATER HIGH RISK Performed By: #### L [id number] ####[facility] ([facility])[address] [place] [address] 30on 08-17-2024 30 Normal [facility] ANTI-XA (HEPARIN LEVEL)on HEPARIN UNFRACTIONATED (U/ML) IN PPP BY CHROMOGENIC METHOD 0.86 IU/mL High 0.3-0.7 [facility] Comment on above: Result Comment: Tatyana roxaban and Apixaban will interfere with the anti Xa assay used to monitor UFH and LMWH. Performed By: #### L [id number] ####[facility] ([facility])[address] [address] HEPARIN UNFRACTIONATED (U/ML) IN PPP BY CHROMOGENIC METHOD >1.00 Critically high 0.3-0.7 [facility] Comment on above: Result Comment: Adams roxaban and Apixaban will interfere with the anti Xa assay used to monitor UFH and LMWH. Performed By: #### L [id number] ####[facility] ([facility])[address] [address] HEPARIN UNFRACTIONATED (U/ML) IN PPP BY CHROMOGENIC METHOD >1.00 Critically high 0.3-0.7 [facility] Comment on above: Performed By: #### L [id number] ####[facility] ([facility])[address] [place] [address] APTTon 08-17-2024 ACTIVATED PARTIAL THROMBOPLASTIN TIME IN PPP BY COAGULATION ASSAY 99.6 Seconds High 25.0-35.0 [facility] Comment on above: Result Comment: Clin ical significance of the APTT is questionable in the presence of heparin. Performed By: #### L [id number] ####[facility] ([facility])[address] [address] ACTIVATED PARTIAL THROMBOPLASTIN TIME IN PPP BY COAGULATION ASSAY 98.9 Seconds High 25.0-35.0 [facility] Comment on above: Result Comment: Clin ical significance of the APTT is questionable in the presence of heparin. Performed By: #### L [id number] ####[facility] ([facility])[address] [place] [address] B-TYPE NATRIURETIC PEPTIDEon 08-17-2024 Natriuretic peptide B (Bld) [Mass/Vol] 75 pg/mL Normal 0-100 [facility] Comment on above: Performed By: #### L [id number] ####[facility] ([facility])[address] [place] [address] BASIC METABOLIC PANELon 07-22 Anion gap [Moles/Vol] 9 mmol/L Normal 7-20 [facility] Comment on above: Performed By: #### L [id number] ####[facility] ([facility])[address] [place] [address] Calcium [Mass/Vol] 8.8 mg/dL Normal 8.6-10.3 [facility] Comment on above: Performed By: #### L [id number] ####[facility] ([facility])[address] [address] Chloride [Moles/Vol] 97 mmol/L Low 98-107 [facility] Comment on above: Performed By: #### L [id number] ####[facility] ([facility])[address] [place] [address] CO2 [Moles/Vol] 45 mmol/L Critically high 21-31 [facility] Comment on above: Performed By: #### L [id number] ####[facility] ([facility])[address] [place] [address] Creatinine [Mass/Vol] 0.93 mg/dL Normal 0.70-1.30 [facility] Comment on above: Performed By: #### L [id number] ####[facility] ([facility])[address] [place] [address] GLOMERULAR FILTRATION RATE ML/MIN/1.73 SQ M.PREDICTED 91.1 mL/min/1.73m*2 Normal >60.0 [facility] Comment on above: Result Comment: [facility]???s estimated glomerular filtration rate (eGFR) will no [...] of individuals. Performed By: #### L [id number] ####[facility] ([facility])[address] [place] [address] Glucose [Mass/Vol] 190 mg/dL High 70-100 [facility] Comment on above: Performed By: #### L [id number] ####[facility] ([facility])[address] [place] [address] Potassium [Moles/Vol] 3.5 mmol/L Normal 3.5-5.1 [facility] Comment on above: Performed By: #### L [id number] ####[facility] ([facility])[address] [place] [address] Sodium [Moles/Vol] 147 mmol/L High 136-145 [facility] Comment on above: Performed By: #### L [id number] ####[facility] ([facility])[address] [place] [address] Urea nitrogen [Mass/Vol] 28 mg/dL High 7-25 [facility] Comment on above: Performed By: #### L [id number] ####[facility] ([facility])[address] [place] [address] UREA NITROGEN/CREATININE (MASS RATIO) IN SER/PLAS 30.1 Normal [facility] Comment on above: Performed By: #### L [id number] ####[facility] ([facility])[address] [place] [address] CBC WITH AUTO DIFFERENTIALon 08-17-2024 Basophils (Bld) [#/Vol] 0.02 10*3/uL Normal 0.00-0.20 [facility] Comment on above: Performed By: #### L [id number] ####[facility] ([facility])[address] [place] [address] Basophils/100 WBC (Bld) 0.2 % Normal 0.0-1.0 [facility] Comment on above: Performed By: #### L [id number] ####[facility] ([facility])[address] [place] [address] Eosinophils (Bld) [#/Vol] 0.20 10*3/uL Normal 0.00-0.50 [facility] Comment on above: Performed By: #### L [id number] ####[facility] ([facility])[address] [place] [address] Eosinophils/100 WBC (Bld) 2.4 % Normal 0.0-6.0 [facility] Comment on above: Performed By: #### L [id number] ####[facility] ([facility])[address] [place] [address] Erythrocyte distribution width (RBC) [Ratio] 15.3 % High 11.5-15.0 [facility] Comment on above: Performed By: #### L [id number] ####[facility] (BEAKER)[address] [place] [address] ERYTHROCYTE MEAN CORPUSCULAR HEMOGLOBIN CONCENTRATION (G/DL) BY AUTOMATED 30.0 g/dL Low 32.0-35.0 [facility] Comment on above: Performed By: #### L [id number] ####[facility] (BEAKER)[address] [place] [address] Hematocrit (Bld) [Volume fraction] 49.7 % Normal 39.0-55.0 [facility] Comment on above: Performed By: #### L [id number] ####[facility] (BEAKER)[address] [place] [address] Hemoglobin (Bld) [Mass/Vol] 14.9 g/dL Normal 13.0-17.0 [facility] Comment on above: Performed By: #### L [id number] ####[facility] ([facility]ER)[address] [place] [address] Immature granulocytes (Bld) [#/Vol] 0.04 10*3/uL Normal 0.00-0.20 [facility] Comment on above: Performed By: #### L [id number] ####[facility] ([facility]ER)[address] [place] [address] Immature granulocytes/100 WBC (Bld) 0.5 % Normal 0.0-1.0 [facility] Comment on above: Performed By: #### L [id number] ####[facility] (BEAKER)[address] [place] [address] Lymphocytes (Bld) [#/Vol] 0.87 10*3/uL Low 1.20-4.00 [facility] Comment on above: Performed By: #### L [id number] ####[facility] (BEAKER)[address] [place] [address] Lymphocytes/100 WBC (Bld) 10.5 % Low 20.0-45.0 [facility] Comment on above: Performed By: #### L [id number] ####[facility] (BEAKER)[address] [place] [address] MCH (RBC) [Entitic mass] 29.0 pg Normal 27.0-33.0 [facility] Comment on above: Performed By: #### L [id number] ####[facility] (BEAKER)[address] [place] [address] MCV (RBC) [Entitic vol] 96.9 fL Normal 82.0-98.0 [facility] Comment on above: Performed By: #### L [id number] ####[facility] (BEAKER)[address] [place] [address] Monocytes (Bld) [#/Vol] 1.21 10*3/uL High 0.10-1.00 [facility] Comment on above: Performed By: #### L [id number] ####[facility] (BEAKER)[address] [place] [address] Monocytes/100 WBC (Bld) 14.6 % High 5.0-12.0 [facility] Comment on above: Performed By: #### L [id number] ####[facility] (BEAKER)[address] [place] [address] Neutrophils (Bld) [#/Vol] 5.97 10*3/uL Normal 1.60-7.60 [facility] Comment on above: Performed By: #### L [id number] ####[facility] (BEAKER)[address] [place] [address] Neutrophils/100 WBC (Bld) 71.8 % Normal 40.0-72.0 [facility] Comment on above: Performed By: #### L [id number] ####[facility] (BEAKER)[address] [place] [address] NRBC (PER 100 WBCS) BY AUTOMATED COUNT 0.0 % Normal 0 [facility] Comment on above: Performed By: #### L [id number] ####[facility] (BEAKER)[address] [place] [address] PLATELETS (10*3/UL) IN BLOOD AUTOMATED COUNT 210 10*3/uL Normal 150-400 [facility] Comment on above: Performed By: #### L [id number] ####[facility] ([facility])[address] [place] [address] RBC (Bld) [#/Vol] 5.13 10*6/uL Normal 4.20-5.70 [facility] Comment on above: Performed By: #### L [id number] ####[facility] ([facility])[address] [place] [address] WBC (Bld) [#/Vol] 8.31 10*3/uL Normal 4.00-10.60 [facility] Comment on above: Performed By: #### L [id number] ####[facility] ([facility])[address] [place] [address] MAGNESIUMon 08-17-2024 Magnesium [Mass/Vol] 2.2 mg/dL Normal 1.9-2.7 [facility] Comment on above: Performed By: #### L [id number] ####[facility] ([facility])[address] [place] [address] Magnesium [Mass/Vol] 1.8 mg/dL Low 1.9-2.7 [facility] Comment on above: Performed By: #### L [id number] ####[facility] ([facility])[address] [place] [address] Magnesium [Mass/Vol] 1.6 mg/dL Low 1.9-2.7 [facility] Comment on above: Performed By: #### L [id number] ####[facility] ([facility])[address] [place] [address] PHOSPHORUSon 08-17-2024 Magnesium [Mass/Vol] 3.2 mg/dL Normal 2.5-5.0 [facility] Comment on above: Performed By: #### L [id number] ####[facility] ([facility])[address] [place] [address] POCT GLUCOSE METER UNSOLICIT ED RESULTSon 08-17-2024 Glucose [Mass/Vol] 184 mg/dL High 70-105 [facility] Comment on above: Order Comment: Waive d Testing in the ED is performed under the ED CLIA certificate #[id number]. Result Comment: umesh sheikh Performed By: #### L [id number] ####[facility] ([facility])[address] [place] [address] Glucose [Mass/Vol] 191 mg/dL High 70-105 [facility] Comment on above: Order Comment: Waive d Testing in the ED is performed under the ED CLIA certificate #[id number]. Result Comment: umesh sheikh Performed By: #### L [id number] ####[facility] ([facility])[address] [place] [address] POTASSIUMon 08-17-2024 Potassium [Moles/Vol] 3.8 mmol/L Normal 3.5-5.1 [facility] Comment on above: Performed By: #### L [id number] ####[facility] ([facility])[address] [place] [address] Potassium [Moles/Vol] 3.7 mmol/L Normal 3.5-5.1 [facility] Comment on above: Performed By: #### L [id number] ####[facility] ([facility])[address] [place] [address] PROTIME-INRon 08-17-2024 INR IN PPP BY COAGULATION ASSAY 1.19 High 0.90-1.10 [facility] Comment on above: Result Comment: ACCC P [...] CHEST 1995;108:[id number]. Performed By: #### L [id number] ####[facility] [employer])[address] [place] [address] PROTHROMBIN TIME (PT) IN PPP BY COAGULATION ASSAY 15.0 Seconds High 12.3-14.8 [facility] Comment on above: Performed By: #### L [id number] ####[facility] ([employer])[address] [place] [address] INR IN PPP BY COAGULATION ASSAY 1.19 High 0.90-1.10 [facility] Comment on above: Result Comment: ACCC P [...] CHEST 1995;108:[id number]. Performed By: #### L [id number] ####[facility] ([facility])[address] [place] [address] PROTHROMBIN TIME (PT) IN PPP BY COAGULATION ASSAY 15.1 Seconds High 12.3-14.8 [facility] Comment on above: Performed By: #### L [id number] ####[facility] ([facility])[address] [place] [address] TRIGLYCERIDESon 08-17-2024 FASTING? Unknown Normal [facility] Comment on above: Performed By: #### L [id number] ####[facility] ([facility])[address] [place] [address] Magnesium [Mass/Vol] 119 mg/dL Normal 40-149 [facility] Comment on above: Result Comment: TRIG LYCERIDE REFERENCE RANGE:20 YEARS AND OLDER CARDIOVASCULAR RISKLESS THAN 150 mg/dL LOW [id number] TO 199 mg/dL BORDERLINE [id number] mg/dL AND GREATER HIGH RISK Performed By: #### L [id number] ####[facility] ([facility])[address] [place] [address] TROPONIN Ion 08-17-2024 Troponin I.cardiac [Mass/Vol] 0.04 ng/mL Normal 0.00-0.04 [facility] Comment on above: Performed By: #### L [id number] ####[facility] ([facility])[address] [place] [address] Troponin I.cardiac [Mass/Vol] 0.04 ng/mL Normal 0.00-0.04 [facility] Comment on above: Performed By: #### L [id number] ####[facility] ([facility])[address] [place] [address] VANCOMYCIN, TROUGHon 025 VANCOMYCIN (UG/ML) IN SER/PLAS - TROUGH 23.6 ug/mL Critically high 5.0-20.0 [facility] Comment on above: Performed By: #### L [id number] ####[facility] ([facility])[address] [place] [address] BASIC METABOLIC PANELon 07-22 Anion gap [Moles/Vol] 11 mmol/L Normal 7-20 [facility] Comment on above: Performed By: #### L [id number] ####[facility] ([facility])[address] [place] [address] Calcium [Mass/Vol] 8.9 mg/dL Normal 8.6-10.3 [facility] Comment on above: Performed By: #### L [id number] ####[facility] ([facility])[address] [place] [address] Chloride [Moles/Vol] 99 mmol/L Normal 98-107 [facility] Comment on above: Performed By: #### L [id number] ####[facility] ([facility])[address] [place] [address] CO2 [Moles/Vol] 38 mmol/L High 21-31 [facility] Comment on above: Performed By: #### L [id number] ####[facility] ([facility])[address] [facility] [place] [address] Creatinine [Mass/Vol] 1.10 mg/dL Normal 0.70-1.30 [facility] Comment on above: Performed By: #### L [id number] ####[facility] ([facility])[address] [place] [address] GLOMERULAR FILTRATION RATE ML/MIN/1.73 SQ M.PREDICTED 74.5 mL/min/1.73m*2 Normal >60.0 [facility] Comment on above: Result Comment: [facility]???s estimated glomerular filtration rate (eGFR) will no [...] of individuals. Performed By: #### L [id number] ####[facility] ([facility])[address] [place] [address] Glucose [Mass/Vol] 202 mg/dL High 70-100 [facility] Comment on above: Performed By: #### L [id number] ####[facility] ([facility])[address] [place] [address] Potassium [Moles/Vol] 3.3 mmol/L Low 3.5-5.1 [facility] Comment on above: Performed By: #### L [id number] ####[facility] ([facility])[address] [place] [address] Sodium [Moles/Vol] 145 mmol/L Normal 136-145 [facility] Comment on above: Performed By: #### L [id number] ####[facility] (BEAKER)[address] [place] [address] Urea nitrogen [Mass/Vol] 38 mg/dL High 7-25 [facility] Comment on above: Performed By: #### L [id number] ####[facility] (BEAKER)[address] [place] [address] UREA NITROGEN/CREATININE (MASS RATIO) IN SER/PLAS 34.5 Normal [facility] Comment on above: Performed By: #### L [id number] ####[facility] (BEAKER)[address] [place] [address] CALCIUM, IONIZEDon CALCIUM IONIZED (MMOL/L) IN BLOOD Normal [facility] Comment on above: Result Comment: C^In calculable Performed By: #### C ALCIUM, IONIZED ####[facility]PIR[facility] [id number] [place] [address] [place] CBC WITH AUTO DIFFERENTIALon 08-16-2024 Erythrocyte distribution width (RBC) [Ratio] 15.1 % High 11.5-15.0 [facility] Comment on above: Performed By: #### L [id number] ####[facility] (BEAKER)[address] [address] ERYTHROCYTE MEAN CORPUSCULAR HEMOGLOBIN CONCENTRATION (G/DL) BY AUTOMATED 30.9 g/dL Low 32.0-35.0 [facility] Comment on above: Performed By: #### L [id number] ####[facility] ([facility])[address] [place] [address] Hematocrit (Bld) [Volume fraction] 52.1 % Normal 39.0-55.0 [facility] Comment on above: Performed By: #### L [id number] ####[facility] ([facility])[address] [place] [address] Hemoglobin (Bld) [Mass/Vol] 16.1 g/dL Normal 13.0-17.0 [facility] Comment on above: Performed By: #### L [id number] ####[facility] ([facility])[address] [place] [address] MCH (RBC) [Entitic mass] 29.4 pg Normal 27.0-33.0 [facility] Comment on above: Performed By: #### L [id number] ####[facility] ([facility])[address] [place] [address] MCV (RBC) [Entitic vol] 95.1 fL Normal 82.0-98.0 [facility] Comment on above: Performed By: #### L [id number] ####[facility] ([facility])[address] [place] [address] NRBC (PER 100 WBCS) BY AUTOMATED COUNT 0.0 % Normal 0 [facility] Comment on above: Performed By: #### L [id number] ####[facility] ([facility])[address] [place] [address] PLATELETS (10*3/UL) IN BLOOD AUTOMATED COUNT 243 10*3/uL Normal 150-400 [facility] Comment on above: Performed By: #### L [id number] ####[facility] ([facility])[address] [place] [address] RBC (Bld) [#/Vol] 5.48 10*6/uL Normal 4.20-5.70 [facility] Comment on above: Performed By: #### L [id number] ####[facility] ([facility])[address] [place] [address] WBC (Bld) [#/Vol] 9.57 10*3/uL Normal 4.00-10.60 [facility] Comment on above: Performed By: #### L [id number] ####[facility] ([facility])[address] [place] [address] CONSULTon 08-16-2024 CONSULT Normal [facility] CONSULT Normal [facility] CTA CHEST W IV CONTRASTon CTA CHEST W IV CONTRAST Invalid Interpretation Code [facility] MAGNESIUMon 08-16-2024 Magnesium [Mass/Vol] 1.9 mg/dL Normal 1.9-2.7 [facility] Comment on above: Performed By: #### L [id number] ####[facility] ([facility])[address] [place] [address] Magnesium [Mass/Vol] 1.7 mg/dL Low 1.9-2.7 [facility] Comment on above: Performed By: #### L [id number] ####[facility] ([facility])[address] [place] [address] MANUAL DIFFERENTIALon 2024 BASOPHILS (10*3/UL) IN BLOOD BY CALCULATION 0.02 10*3/uL Normal 0.00-0.20 [facility] Comment on above: Performed By: #### L [id number] ####[facility] ([facility])[address] [place] [address] BASOPHILS/100 LEUKOCYTES IN BLOOD BY AUTOMATED COUNT 0.2 % Normal 0.0-1.0 [facility] Comment on above: Performed By: #### L [id number] ####[facility] ([facility])[address] [place] [address] EOSINOPHILS (10*3/UL) IN BLOOD BY CALCULATION 0.10 10*3/uL Normal 0.00-0.50 [facility] Comment on above: Performed By: #### L [id number] ####[facility] ([facility])[address] [place] [address] EOSINOPHILS/100 LEUKOCYTES IN BLOOD BY AUTOMATED COUNT 1.0 % Normal 0.0-6.0 [facility] Comment on above: Performed By: #### L [id number] ####[facility] ([facility])[address] [place] [address] IMMATURE GRANULOCYTES (10*3/UL) IN BLOOD BY CALCULATION 0.06 10*3/uL Normal 0.00-0.20 [facility] Comment on above: Performed By: #### L [id number] ####[facility] ([facility])[address] [place] [address] IMMATURE GRANULOCYTES/100 LEUKOCYTES IN BLOOD BY AUTOMATED COUNT 0.6 % Normal 0.0-1.0 [facility] Comment on above: Performed By: #### L [id number] ####[facility] ([facility])[address] [place] [address] LYMPHOCYTES (10*3/UL) IN BLOOD BY CALCULATION 0.73 10*3/uL Low 1.20-4.00 [facility] Comment on above: Performed By: #### L [id number] ####[facility] ([facility])[address] [place] [address] LYMPHOCYTES/100 LEUKOCYTES IN BLOOD BY AUTOMATED COUNT 7.6 % Low 20.0-45.0 [facility] Comment on above: Performed By: #### L [id number] ####[facility] ([facility])[address] [place] [address] MONOCYTES (10*3/UL) IN BLOOD BY CALCUATION 1.52 10*3/uL High 0.10-1.00 [facility] Comment on above: Performed By: #### L [id number] ####[facility] ([facility])[address] [place] [address] MONOCYTES/100 LEUKOCYTES IN BLOOD BY AUTOMATED COUNT 15.9 % High 5.0-12.0 [facility] Comment on above: Performed By: #### L [id number] ####[facility] ([facility])[address] [place] [address] NEUTROPHILS (10*3/UL) IN BLOOD BY CALCULATION 7.1 10*3/uL Normal 1.6-7.6 [facility] Comment on above: Performed By: #### L [id number] ####[facility] ([facility])[address] [place] [address] NEUTROPHILS/100 LEUKOCYTES IN BLOOD BY AUTOMATED COUNT 74.7 % High 40.0-72.0 [facility] Comment on above: Performed By: #### L [id number] ####[facility] ([facility])[address] [place] [address] PHOSPHORUSon 08-16-2024 Magnesium [Mass/Vol] 3.8 mg/dL Normal 2.5-5.0 [facility] Comment on above: Performed By: #### L [id number] ####[facility] ([facility])[address] [place] [address] Magnesium [Mass/Vol] 1.8 mg/dL Low 2.5-5.0 [facility] Comment on above: Performed By: #### L [id number] ####[facility] ([facility])[address] [place] [address] POCT GLUCOSE METER UNSOLICIT ED RESULTSon 08-16-2024 Glucose [Mass/Vol] 189 mg/dL High 70-105 [facility] Comment on above: Order Comment: Waive d Testing in the ED is performed under the ED CLIA certificate #[id number]. Result Comment: ljon es Performed By: #### L [id number] ####[facility] ([facility])[address] [place] [address] Glucose [Mass/Vol] 205 mg/dL High 70-105 [facility] Comment on above: Order Comment: Waive d Testing in the ED is performed under the ED CLIA certificate #[id number]. Result Comment: rgil l Performed By: #### L [id number] ####[facility] ([facility])[address] [place] [address] Glucose [Mass/Vol] 200 mg/dL High 70-105 [facility] Comment on above: Order Comment: Waive d Testing in the ED is performed under the ED CLIA certificate #[id number]. Result Comment: ezab [email or web address] Performed By: #### L [id number] ####[facility] ([facility])[address] [place] [address] Glucose [Mass/Vol] 207 mg/dL High 70-105 [facility] Comment on above: Order Comment: Waive d Testing in the ED is performed under the ED CLIA certificate #[id number]. Result Comment: oyod er Performed By: #### L [id number] ####[facility] ([facility])[address] [place] [address] POTASSIUMon 08-16-2024 Potassium [Moles/Vol] 3.3 mmol/L Low 3.5-5.1 [facility] Comment on above: Performed By: #### L [id number] ####[facility] ([facility])[address] [place] [address] Potassium [Moles/Vol] 3.5 mmol/L Normal 3.5-5.1 [facility] Comment on above: Performed By: #### L [id number] ####[facility] ([facility])[address] [place] [address] POTASSIUM, WHOLE BLOODon Potassium [Moles/Vol] 3.5 mmol/L Normal 3.5-5.1 [facility] Comment on above: Performed By: #### P OTASSIUM, WHOLE BLOOD ####[facility] [id number] [place] [address] [place] SODIUM, WHOLE BLOODon 2024 SODIUM, WHOLE BLOOD Normal [facility] Comment on above: Result Comment: C^In calculable Performed By: #### S ODIUM, WHOLE BLOOD ####[facility] RESPIR[facility] [id number] [place] [address] [place] TRIGLYCERIDESon 08-16-2024 FASTING? Unknown Normal [facility] Comment on above: Performed By: #### L [id number] ####[facility] (BEAKER)[address] [address] Magnesium [Mass/Vol] 243 mg/dL High 40-149 [facility] Comment on above: Result Comment: TRIG LYCERIDE REFERENCE RANGE:20 YEARS AND OLDER CARDIOVASCULAR RISKLESS THAN 150 mg/dL LOW [id number] TO 199 mg/dL BORDERLINE [id number] mg/dL AND GREATER HIGH RISK Performed By: #### L [id number] ####[facility] (BEAKER)[address] [address] 30on 08-15-2024 30 Normal [facility] 30 [facility] BLOOD CULTUREon 08-15-2024 Bacteria identified Cx Nom (Bld) No growth at 5 days Normal [facility] Comment on above: Order Comment: From a different site than #1. Performed By: #### L [id number] ####[facility] (BEAKER)[address] [place] [address] Basophils Auto (Bld) [#/Vol] on 08-15-2024 Basophils (Bld) [#/Vol] Automated basophil count 0.0-0.1 [facility] Basophils/100 WBC Auto (Bld) on 08-15-2024 Basophils/100 WBC (Bld) Automated basophil % Low 0.2-2.0 [facility] CALCIUM, IONIZEDon CALCIUM IONIZED (MMOL/L) IN BLOOD 1.23 mmol/L Normal 1.15-1.33 [facility] Comment on above: Performed By: #### C ALCIUM, IONIZED ####[facility] RESPIRAT[facility] [id number] [place] [address] [place] CBC WITH AUTO DIFFERENTIALon 08-15-2024 Basophils (Bld) [#/Vol] 0.01 10*3/uL Normal 0.00-0.20 [facility] Comment on above: Performed By: #### L [id number] ####[facility] (BEAKER)[address] [place] [address] Basophils/100 WBC (Bld) 0.1 % Normal 0.0-1.0 [facility] Comment on above: Performed By: #### L [id number] ####[facility] (BEAKER)[address] [place] [address] Eosinophils (Bld) [#/Vol] 0.01 10*3/uL Normal 0.00-0.50 [facility] Comment on above: Performed By: #### L [id number] ####[facility] (BEAKER)[address] [place] [address] Eosinophils/100 WBC (Bld) 0.1 % Normal 0.0-6.0 [facility] Comment on above: Performed By: #### L [id number] ####[facility] (BEAKER)[address] [place] [address] Erythrocyte distribution width (RBC) [Ratio] 15.2 % High 11.5-15.0 [facility] Comment on above: Performed By: #### L [id number] ####[facility] (BEAKER)[address] [place] [address] ERYTHROCYTE MEAN CORPUSCULAR HEMOGLOBIN CONCENTRATION (G/DL) BY AUTOMATED 33.8 g/dL Normal 32.0-35.0 [facility] Comment on above: Performed By: #### L [id number] ####[facility] (BEAKER)[address] [place] [address] Hematocrit (Bld) [Volume fraction] 47.1 % Normal 39.0-55.0 [facility] Comment on above: Performed By: #### L [id number] ####[facility] (BEAKER)[address] [place] [address] Hemoglobin (Bld) [Mass/Vol] 15.9 g/dL Normal 13.0-17.0 [facility] Comment on above: Performed By: #### L [id number] ####[facility] (BEAKER)[address] [place] [address] Immature granulocytes (Bld) [#/Vol] 0.05 10*3/uL Normal 0.00-0.20 [facility] Comment on above: Performed By: #### L [id number] ####[facility] ([facility])[address] [place] [address] Immature granulocytes/100 WBC (Bld) 0.7 % Normal 0.0-1.0 [facility] Comment on above: Performed By: #### L [id number] ####[facility] ([facility])[address] [place] [address] Lymphocytes (Bld) [#/Vol] 0.54 10*3/uL Low 1.20-4.00 [facility] Comment on above: Performed By: #### L [id number] ####[facility] ([facility])[address] [place] [address] Lymphocytes/100 WBC (Bld) 7.2 % Low 20.0-45.0 [facility] Comment on above: Performed By: #### L [id number] ####[facility] ([facility])[address] [place] [address] MCH (RBC) [Entitic mass] 31.8 pg Normal 27.0-33.0 [facility] Comment on above: Performed By: #### L [id number] ####[facility] ([facility])[address] [place] [address] MCV (RBC) [Entitic vol] 94.2 fL Normal 82.0-98.0 [facility] Comment on above: Performed By: #### L [id number] ####[facility] ([facility])[address] [place] [address] Monocytes (Bld) [#/Vol] 1.23 10*3/uL High 0.10-1.00 [facility] Comment on above: Performed By: #### L [id number] ####[facility] ([facility])[address] [place] [address] Monocytes/100 WBC (Bld) 16.3 % High 5.0-12.0 [facility] Comment on above: Performed By: #### L [id number] ####[facility] ([facility])[address] [place] [address] Neutrophils (Bld) [#/Vol] 5.70 10*3/uL Normal 1.60-7.60 [facility] Comment on above: Performed By: #### L [id number] ####[facility] ([facility])[address] [place] [address] Neutrophils/100 WBC (Bld) 75.6 % High 40.0-72.0 [facility] Comment on above: Performed By: #### L [id number] ####[facility] ([facility])[address] [place] [address] NRBC (PER 100 WBCS) BY AUTOMATED COUNT 0.3 % High 0 [facility] Comment on above: Performed By: #### L [id number] ####[facility] ([facility])[address] [place] [address] PLATELETS (10*3/UL) IN BLOOD AUTOMATED COUNT 237 10*3/uL Normal 150-400 [facility] Comment on above: Performed By: #### L [id number] ####[facility] ([facility])[address] [address] RBC (Bld) [#/Vol] 5.00 10*6/uL Normal 4.20-5.70 [facility] Comment on above: Performed By: #### L [id number] ####[facility] ([facility])[address] [place], [place] [address] WBC (Bld) [#/Vol] 7.54 10*3/uL Normal 4.00-10.60 [facility] Comment on above: Performed By: #### L [id number] ####[facility] ([facility])[address] [place] [address] COMPREHENSIVE METABOLIC PANE Kris 08-15-2024 Albumin [Mass/Vol] 2.9 g/dL Low 3.5-5.7 [facility] Comment on above: Performed By: #### L [id number] ####[facility] ([facility])[address] [place] [address] ALP [Catalytic activity/Vol] 58 U/L Normal 34-104 [facility] Comment on above: Performed By: #### L [id number] ####[facility] ([facility])[address] [place] [address] ALT [Catalytic activity/Vol] 21 U/L Normal 7-52 [facility] Comment on above: Performed By: #### L [id number] ####[facility] ([facility])[address] [place] [address] Anion gap [Moles/Vol] 13 mmol/L Normal 7-20 [facility] Comment on above: Performed By: #### L [id number] ####[facility] ([facility])[address] [place] [address] AST [Catalytic activity/Vol] 29 U/L Normal 13-39 [facility] Comment on above: Performed By: #### L [id number] ####[facility] ([facility])[address] [place] [address] Bilirubin [Mass/Vol] 1.0 mg/dL Normal 0.3-1.0 [facility] Comment on above: Performed By: #### L [id number] ####[facility] ([facility])[address] [place] [address] Calcium [Mass/Vol] 8.2 mg/dL Low 8.6-10.3 [facility] Comment on above: Performed By: #### L [id number] ####[facility] ([facility])[address] [place] [address] Chloride [Moles/Vol] 90 mmol/L Low 98-107 [facility] Comment on above: Performed By: #### L [id number] ####[facility] ([facility])[address] [place] [address] CO2 [Moles/Vol] 32 mmol/L High 21-31 [facility] Comment on above: Performed By: #### L [id number] ####[facility] ([facility])[address] [place] [address] Creatinine [Mass/Vol] 1.17 mg/dL Normal 0.70-1.30 [facility] Comment on above: Performed By: #### L [id number] ####[facility] ([facility])[address] [place] [address] GLOMERULAR FILTRATION RATE ML/MIN/1.73 SQ M.PREDICTED 69.2 mL/min/1.73m*2 Normal >60.0 [facility] Comment on above: Result Comment: [facility]???s estimated glomerular filtration rate (eGFR) will no [...] of individuals. Performed By: #### L [id number] ####[facility] ([facility])[address] [place] [address] Glucose [Mass/Vol] 219 mg/dL High 70-100 [facility] Comment on above: Performed By: #### L [id number] ####[facility] ([facility])[address] [place] [address] Potassium [Moles/Vol] 4.0 mmol/L Normal 3.5-5.1 [facility] Comment on above: Performed By: #### L [id number] ####[facility] ([facility])[address] [place] [address] Protein [Mass/Vol] 5.5 g/dL Low 6.0-8.3 [facility] Comment on above: Performed By: #### L [id number] ####[facility] ([facility])[address] [place] [address] Sodium [Moles/Vol] 131 mmol/L Low 136-145 [facility] Comment on above: Performed By: #### L [id number] ####[facility] ([facility])[address] [place] [address] Urea nitrogen [Mass/Vol] 42 mg/dL High 7-25 [facility] Comment on above: Performed By: #### L [id number] ####[facility] ([facility])[address] [place] [address] UREA NITROGEN/CREATININE (MASS RATIO) IN SER/PLAS 35.9 Normal [facility] Comment on above: Performed By: #### L [id number] ####[facility] ([facility])[address] [place] [address] Eosinophils/100 WBC Auto (Bl d)on 08-15-2024 Eosinophils/100 WBC (Bld) Automated eosinophil % Low 0.9-7.0 [facility] Erythrocyte distribution wid th Auto (RBC) [Ratio]on 08-15-2024 Erythrocyte distribution width (RBC) [Ratio] Erythrocyte distribution width [Ratio] by Automated count High 11.0-15.0 [facility] Estimated glomerular filtrat ion rate (GFR) non- Americanon 08-15-2024 GFR/1.73 sq M.predicted among non-blacks MDRD (S/P/Bld) [Vol rate/Area] Estimated glomerular filtration rate (GFR) non- Low >=60 mL/min/1.73m 2 [facility] Globulin Calc (S) [Mass/Vol] on 08-15-2024 Globulin (S) [Mass/Vol] Serum globulin measurement by calculation (mass/volume) [facility] HEMOGLOBIN A1Con 08-15-2024 Glucose [Mass/Vol] 189 mg/dL Normal [facility] Comment on above: Performed By: #### L [id number] ####[facility] ([facility])[address] [place] [address] HbA1c (Bld) [Mass fraction] 8.2 % High 4.0-6.0 [facility] Comment on above: Performed By: #### L [id number] ####[facility] ([facility])[address] [place] [address] HPon 08-15-2024 HP Normal [facility] Hematocrit Auto (Bld) [Volum e fraction]on 08-15-2024 Hematocrit (Bld) [Volume fraction] Hematocrit [Volume Fraction] of Blood by Automated count 42.0-54.0 [facility] Hemoglobin [Mass/volume] in Bloodon 08-15-2024 Hemoglobin (Bld) [Mass/Vol] Hemoglobin [Mass/volume] in Blood 14.0-18.0 [facility] LIPASEon 08-15-2024 LIPASE (U/L) IN SER/PLAS 28 U/L Normal 11-82 [facility] Comment on above: Result Comment: M-CH EMISTRY SPECIMEN MODERATELY HEMOLYZED RESULTS MAY NOT BE ACCURATE Performed By: #### L [id number] ####[facility] ([facility])[address] [place] [address] Laboratory - Chemistry and C hemistry - challengeon 08-15-2024 HCO3 (Bld) [Moles/Vol] 34.7 mmol/L High 22.0-26.0 [facility] Albumin [Mass/Vol] 2.6 g/dL Low 3.4-5.0 [facility] ALP [Catalytic activity/Vol] 81 U/L 46-116 [facility] ALT [Catalytic activity/Vol] 37 U/L 16-63 [facility] AST [Catalytic activity/Vol] 28 U/L 15-37 [facility] Bilirubin [Mass/Vol] 1.2 mg/dL High 0.2-1.0 [facility] Calcium [Mass/Vol] 9.2 mg/dL 8.5-10.1 [facility] Chloride [Moles/Vol] 101 mmol/L 98-107 [facility] CO2 [Moles/Vol] 35.4 mmol/L High 21.0-32.0 [facility] Creatinine [Mass/Vol] 1.66 mg/dL High 0.70-1.30 [facility] GFR/1.73 sq M.predicted MDRD (S/P/Bld) [Vol rate/Area] 51 mL/min/{1.73_m2} Low >=60 mL/min/1.73m 2 [facility] Glucose [Mass/Vol] 268 mg/dL High 74-106 [facility] Potassium [Moles/Vol] 3.8 mmol/L 3.5-5.1 [facility] Protein [Mass/Vol] 6.3 g/dL Low 6.4-8.2 [facility] Sodium [Moles/Vol] 143 mmol/L 136-145 [facility] Urea nitrogen [Mass/Vol] 52.0 mg/dL High 7.0-18.0 [facility] Urea nitrogen/Creatinine [Mass ratio] 31.3 mg/mg [facility] Laboratory - Hematology and Cell countson 08-15-2024 Immature granulocytes/100 WBC (Bld) 0.8 % High 0.0-0.5 [facility] Leukocytes [#/volume] correc beatris for nucleated erythrocytes in Blood by Automated counon 08-15-2024 WBC corrected for nucl RBC Auto (Bld) [#/Vol] Leukocytes [#/volume] corrected for nucleated erythrocytes in Blood by Automated coun 4.0-11.0 [facility] Lymphocytes Auto (Bld) [#/Vo l]on 08-15-2024 Lymphocytes (Bld) [#/Vol] Lymphocytes [#/volume] in Blood by Automated count Low 1.2-3.8 [facility] Lymphocytes/100 WBC Auto (Bl d)on 08-15-2024 Lymphocytes/100 WBC (Bld) Lymphocytes/100 leukocytes in Blood by Automated count Low 20.5-60.0 [facility] MAGNESIUMon 08-15-2024 Magnesium [Mass/Vol] 1.6 mg/dL Low 1.9-2.7 [facility] Comment on above: Performed By: #### L [id number] ####[facility] ([facility])[address] [place] [address] MCH Auto (RBC) [Entitic mass ]on 08-15-2024 MCH (RBC) [Entitic mass] MCH [Entitic mass] by Automated count 25.9-34.0 [facility] MCHC Auto (RBC) [Mass/Vol]on 08-15-2024 MCHC (RBC) [Mass/Vol] MCHC [Mass/volume] by Automated count 29.9-35.2 [facility] MCV Auto (RBC) [Entitic vol] on 08-15-2024 MCV (RBC) [Entitic vol] MCV [Entitic volume] by Automated count 80.0-94.0 [facility] MRSA/MSSA DNA NASALon 2024 MRSA DNA Negative Normal Negative [facility] Comment on above: Order Comment: Testi ng [...] preclude nasal colonization. Performed By: #### L [id number] ####[facility] ([facility])[address] [place] [address] MSSA DNA Negative Normal Negative [facility] Comment on above: Order Comment: Testi ng [...] preclude nasal colonization. Performed By: #### L [id number] ####[facility] ([facility])[address] [place] [address] Monocytes Auto (Bld) [#/Vol] on 08-15-2024 Monocytes (Bld) [#/Vol] Automated blood monocyte count 0.3-0.8 [facility] Monocytes/100 WBC Auto (Bld) on 08-15-2024 Monocytes/100 WBC (Bld) Automated monocyte % 1.7-12.0 [facility] Neutrophils Auto (Bld) [#/Vo l]on 08-15-2024 Neutrophils (Bld) [#/Vol] Neutrophils [#/volume] in Blood by Automated count 1.4-6.5 [facility] Neutrophils/100 WBC Auto (Bl d)on 08-15-2024 Neutrophils/100 WBC (Bld) Automated neutrophil % High 43.0-75.0 [facility] No Panel Informationon 08-15 Avinash Test Positive POSITIVE [facility] Arterial Blood Base Excess 11.0 mmol/L High <2.0-2.0 [facility] Arterial Blood Oxygen Saturation 97.0 % [facility] Arterial Blood Partial Pressure CO2 47.8 mm[Hg] High 35.0-45.0 [facility] Arterial Blood Partial Pressure O2 81.0 mm[Hg] 80.0-100.0 [facility] Arterial Blood pH 7.469 High 7.350-7.450 [facility] Blood Gas PEEP 8 [facility] Blood Gas Sample Site RIGHT RADIAL F [facility] Blood Gas Set Respiration Rate 22 [facility] Blood Gas Tidal Volume 600 [facility] Blood Gas Ventilator Mode AC/VC [facility] FiO2 90 % [facility] Oxygen Delivery Device VENT [facility] Reference Lab Test #2 Result 13.8 [facility] Eosinophils # (Auto) 0.0 10 3/uL 0.0-0.7 [facility] Immature Granulocyte # (Auto) 0.06 10 3/uL High 0.00-0.03 [facility] PHOSPHORUSon 08-15-2024 Magnesium [Mass/Vol] 2.7 mg/dL Normal 2.5-5.0 [facility] Comment on above: Performed By: #### L [id number] ####[facility] ([facility])[address] [place] [address] POCT GLUCOSE METER UNSOLICIT ED RESULTSon 08-15-2024 Glucose [Mass/Vol] 249 mg/dL High 70-105 [facility] Comment on above: Order Comment: Waive d Testing in the ED is performed under the ED CLIA certificate #[id number]. Result Comment: oyod er Performed By: #### L [id number] ####[facility] ([facility])[address] [facility] [place] [address] Glucose [Mass/Vol] 217 mg/dL High 70-105 [facility] Comment on above: Order Comment: Waive d Testing in the ED is performed under the ED CLIA certificate #[id number]. Result Comment: [email or web address] [email or web address] Performed By: #### L [id number] ####[facility] ([facility])[address] [facility] [place] [address] Glucose [Mass/Vol] 233 mg/dL High 70-105 [facility] Comment on above: Order Comment: Waive d Testing in the ED is performed under the ED CLIA certificate #[id number]. Result Comment: bmen [email or web address] Performed By: #### L [id number] ####[facility] ([facility])[address] [facility] [place] [address] POTASSIUM, WHOLE BLOODon Potassium [Moles/Vol] 3.4 mmol/L Low 3.5-5.1 [facility] Comment on above: Performed By: #### P OTASSIUM, WHOLE BLOOD ####[facility] [id number] [place] [address] [place] Platelet mean volume Auto (B ld) [Entitic vol]on 08-15-2024 Platelet mean volume (Bld) [Entitic vol] Platelet mean volume [Entitic volume] in Blood by Automated count 9.5-13.5 [facility] Platelets Auto (Bld) [#/Vol] on 08-15-2024 Platelets (Bld) [#/Vol] Platelets [#/volume] in Blood by Automated count 150-450 [facility] RBC Auto (Bld) [#/Vol]on RBC (Bld) [#/Vol] Erythrocytes [#/volume] in Blood by Automated count 4.70-6.10 [facility] SODIUM, WHOLE BLOODon 2024 SODIUM, WHOLE BLOOD 136 Normal 136-145 [facility] Comment on above: Performed By: #### S ODIUM, WHOLE BLOOD ####[facility] [id number] [place] [address] [place] Serum or plasma albumin/glob ulin mass ratioon 08-15-2024 Albumin/Globulin [Mass ratio] Serum or plasma albumin/globulin mass ratio [facility] Serum or plasma anion gap de terminationon 08-15-2024 Anion gap [Moles/Vol] Serum or plasma an ion gap determination [facility] TRIGLYCERIDESon 08-15-2024 FASTING? unknown Normal [facility] Comment on above: Order Comment: Monit or triglycerides while patient is on propofol. Consult Nutrition if greater than 500 mg/dL. Performed By: #### L [id number] ####[facility] ([facility])[address] [place] [address] Magnesium [Mass/Vol] 3920 mg/dL High 40-149 [facility] Comment on above: Order Comment: Monit or triglycerides while patient is on propofol. Consult Nutrition if greater than 500 mg/dL. Result Comment: TRIG LYCERIDE REFERENCE RANGE:20 YEARS AND OLDER CARDIOVASCULAR RISKLESS THAN 150 mg/dL LOW [id number] TO 199 mg/dL BORDERLINE [id number] mg/dL AND GREATER HIGH RISK Performed By: #### L [id number] ####[facility] ([facility])[address] [place] [address] TROPONIN Ion 08-15-2024 Troponin I.cardiac [Mass/Vol] 0.04 ng/mL Normal 0.00-0.04 [facility] Comment on above: Performed By: #### L [id number] ####[facility] ([facility])[address] [place] [address] URINALYSIS WITH MICROSCOPICo n 08-15-2024 BILIRUBIN, TOTAL PRESENCE IN URINE Negative Normal Negative [facility] Comment on above: Performed By: #### L [id number] ####[facility] ([facility])[address] [place] [address] Clarity (U) Clear Normal Clear [facility] Comment on above: Performed By: #### L [id number] ####[facility] ([facility])[address] [place] [address] Color (U) Colorless Normal Colorless, Yellow, Light-Yellow [facility] Comment on above: Performed By: #### L [id number] ####[facility] ([facility])[address] [place] [address] GLUCOSE (MG/DL) IN URINE Normal Normal Normal [facility] Comment on above: Performed By: #### L [id number] ####[facility] ([facility])[address] [place] [address] HEMOGLOBIN PRESENCE IN URINE Small Abnormal Negative [facility] Comment on above: Performed By: #### L [id number] ####[facility] ([facility])[address] [place] [address] Ketones Ql (U) Negative Normal Negative [facility] Comment on above: Performed By: #### L [id number] ####[facility] ([facility])[address] [place] [address] LEUKOCYTE ESTERASE PRESENCE IN URINE BY TEST STRIP Negative Normal Negative [facility] Comment on above: Performed By: #### L [id number] ####[facility] ([facility]ER)[address] [place] [address] MUCUS (#/LPF) IN URINE SEDIMENT Occasional Normal None Seen, Occasional, Few [facility] Comment on above: Performed By: #### L [id number] ####[facility] ([facility])[address] [place] [address] NITRITE PRESENCE IN URINE Negative Normal Negative [facility] Comment on above: Performed By: #### L [id number] ####[facility] ([facility])[address] [place] [address] pH (U) 5.5 [pH] Normal 5.0-8.0 [facility] Comment on above: Performed By: #### L [id number] ####[facility] ([facility])[address] [place] [address] Protein (U) [Mass/Vol] Negative Normal [facility] Comment on above: Performed By: #### L [id number] ####[facility] ([facility])[address] [place] [address] RBC (#/HPF) IN URINE SEDIMENT 11-20 Abnormal None Seen, 0-2 [facility] Comment on above: Performed By: #### L [id number] ####[facility] ([facility])[address] [place] [address] Specific gravity (U) [Rel density] 1.011 Normal 1.010-1.030 [facility] Comment on above: Performed By: #### L [id number] ####[facility] ([facility])[address] [place] [address] SQUAMOUS EPITHELIAL CELLS (#/LPF) IN URINE SEDIMENT None Seen Normal None Seen, Occasional, Few [facility] Comment on above: Performed By: #### L [id number] ####[facility] ([facility])[address] [place] [address] UROBILINOGEN (MG/DL) IN URINE Normal Normal Normal [facility] Comment on above: Performed By: #### L [id number] ####[facility] ([facility]ER)[address] [place] [address] WBC (LEUKOCYTE) (#/HPF) IN URINE SEDIMENT 3-5 Abnormal None Seen, 0-2 [facility] Comment on above: Performed By: #### L [id number] ####[facility] ([facility])[address] [place] [address] Basophils Auto (Bld) [#/Vol] on 08-14-2024 Basophils (Bld) [#/Vol] Automated basophil count 0.0-0.1 [facility] Basophils/100 WBC Auto (Bld) on 08-14-2024 Basophils/100 WBC (Bld) Automated basophil % 0.2-2.0 [facility] Eosinophils/100 WBC Auto (Bl d)on 08-14-2024 Eosinophils/100 WBC (Bld) Automated eosinophil % Low 0.9-7.0 [facility] Erythrocyte distribution wid th Auto (RBC) [Ratio]on 08-14-2024 Erythrocyte distribution width (RBC) [Ratio] Erythrocyte distribution width [Ratio] by Automated count High 11.0-15.0 [facility] Estimated glomerular filtrat ion rate (GFR) non- Americanon 08-14-2024 GFR/1.73 sq M.predicted among non-blacks MDRD (S/P/Bld) [Vol rate/Area] Estimated glomerular filtration rate (GFR) non- Low >=60 mL/min/1.73m 2 [facility] Globulin Calc (S) [Mass/Vol] on 08-14-2024 Globulin (S) [Mass/Vol] Serum globulin measurement by calculation (mass/volume) [facility] Hematocrit Auto (Bld) [Volum e fraction]on 08-14-2024 Hematocrit (Bld) [Volume fraction] Hematocrit [Volume Fraction] of Blood by Automated count 42.0-54.0 [facility] Hemoglobin [Mass/volume] in Bloodon 08-14-2024 Hemoglobin (Bld) [Mass/Vol] Hemoglobin [Mass/volume] in Blood 14.0-18.0 [facility] Laboratory - Chemistry and C hemistry - challengeon 08-14-2024 HCO3 (Bld) [Moles/Vol] 30.8 mmol/L High 22.0-26.0 [facility] Albumin [Mass/Vol] 2.4 g/dL Low 3.4-5.0 [facility] ALP [Catalytic activity/Vol] 82 U/L 46-116 [facility] ALT [Catalytic activity/Vol] 39 U/L 16-63 [facility] AST [Catalytic activity/Vol] 24 U/L 15-37 [facility] Bilirubin [Mass/Vol] 1.1 mg/dL High 0.2-1.0 [facility] Calcium [Mass/Vol] 8.6 mg/dL 8.5-10.1 [facility] Chloride [Moles/Vol] 102 mmol/L 98-107 [facility] CO2 [Moles/Vol] 32.4 mmol/L High 21.0-32.0 [facility] Creatinine [Mass/Vol] 1.64 mg/dL High 0.70-1.30 [facility] GFR/1.73 sq M.predicted MDRD (S/P/Bld) [Vol rate/Area] 51 mL/min/{1.73_m2} Low >=60 mL/min/1.73m 2 [facility] Glucose [Mass/Vol] 194 mg/dL High 74-106 [facility] Potassium [Moles/Vol] 3.9 mmol/L 3.5-5.1 [facility] Protein [Mass/Vol] 5.8 g/dL Low 6.4-8.2 [facility] Sodium [Moles/Vol] 140 mmol/L 136-145 [facility] Urea nitrogen [Mass/Vol] 54.0 mg/dL High 7.0-18.0 [facility] Urea nitrogen/Creatinine [Mass ratio] 32.9 mg/mg [facility] Laboratory - Hematology and Cell countson 08-14-2024 Immature granulocytes/100 WBC (Bld) 0.8 % High 0.0-0.5 [facility] Leukocytes [#/volume] correc beatris for nucleated erythrocytes in Blood by Automated counon 08-14-2024 WBC corrected for nucl RBC Auto (Bld) [#/Vol] Leukocytes [#/volume] corrected for nucleated erythrocytes in Blood by Automated coun 4.0-11.0 [facility] Lymphocytes Auto (Bld) [#/Vo l]on 08-14-2024 Lymphocytes (Bld) [#/Vol] Lymphocytes [#/volume] in Blood by Automated count Low 1.2-3.8 [facility] Lymphocytes/100 WBC Auto (Bl d)on 08-14-2024 Lymphocytes/100 WBC (Bld) Lymphocytes/100 leukocytes in Blood by Automated count Low 20.5-60.0 [facility] MCH Auto (RBC) [Entitic mass ]on 08-14-2024 MCH (RBC) [Entitic mass] MCH [Entitic mass] by Automated count 25.9-34.0 [facility] MCHC Auto (RBC) [Mass/Vol]on 08-14-2024 MCHC (RBC) [Mass/Vol] MCHC [Mass/volume] by Automated count 29.9-35.2 [facility] MCV Auto (RBC) [Entitic vol] on 08-14-2024 MCV (RBC) [Entitic vol] MCV [Entitic volume] by Automated count High 80.0-94.0 [facility] Monocytes Auto (Bld) [#/Vol] on 08-14-2024 Monocytes (Bld) [#/Vol] Automated blood monocyte count 0.3-0.8 [facility] Monocytes/100 WBC Auto (Bld) on 08-14-2024 Monocytes/100 WBC (Bld) Automated monocyte % 1.7-12.0 [facility] Neutrophils Auto (Bld) [#/Vo l]on 08-14-2024 Neutrophils (Bld) [#/Vol] Neutrophils [#/volume] in Blood by Automated count 1.4-6.5 [facility] Neutrophils/100 WBC Auto (Bl d)on 08-14-2024 Neutrophils/100 WBC (Bld) Automated neutrophil % High 43.0-75.0 [facility] No Panel Informationon 08-14 Avinash Test Positive POSITIVE [facility] Arterial Blood Base Excess 6.2 mmol/L High <2.0-2.0 [facility] Arterial Blood Oxygen Saturation 93.3 % [facility] Arterial Blood Partial Pressure CO2 48.3 mm[Hg] High 35.0-45.0 [facility] Arterial Blood Partial Pressure O2 62.0 mm[Hg] Low 80.0-100.0 [facility] Arterial Blood pH 7.413 7.350-7.450 [facility] Blood Gas PEEP +8 [facility] Blood Gas Sample Site RIGHT RADIAL F [facility] Blood Gas Set Respiration Rate 22 [facility] Blood Gas Tidal Volume 600 Fi [facility] Blood Gas Ventilator Mode AC [facility] FiO2 100 % [facility] Oxygen Delivery Device VENT [facility] Eosinophils # (Auto) 0.0 10 3/uL 0.0-0.7 [facility] Immature Granulocyte # (Auto) 0.05 10 3/uL High 0.00-0.03 [facility] Platelet mean volume Auto (B ld) [Entitic vol]on 08-14-2024 Platelet mean volume (Bld) [Entitic vol] Platelet mean volume [Entitic volume] in Blood by Automated count 9.5-13.5 [facility] Platelets Auto (Bld) [#/Vol] on 08-14-2024 Platelets (Bld) [#/Vol] Platelets [#/volume] in Blood by Automated count 150-450 [facility] RBC Auto (Bld) [#/Vol]on RBC (Bld) [#/Vol] Erythrocytes [#/volume] in Blood by Automated count 4.70-6.10 [facility] Serum or plasma albumin/glob ulin mass ratioon 08-14-2024 Albumin/Globulin [Mass ratio] Serum or plasma albumin/globulin mass ratio [facility] Serum or plasma anion gap de terminationon 08-14-2024 Anion gap [Moles/Vol] Serum or plasma an ion gap determination [facility] URINE CULTURE, ROUTINEon Bacteria identified Cx Nom (U) Urine Culture, Routine [facility] Bacteria identified Cx Nom (U) No growth [facility] Bacteria identified Cx Nom (U) Performed at: [facility] LabFormerly [facility] Bacteria identified Cx Nom (U) [address] [place] [address] [phone] [facility] Bacteria identified Cx Nom (U) Milk Receiver Tank Truck: Tyron Saeed PhD, Phone: [phone] [facility] Basophils Auto (Bld) [#/Vol] on 04-08-2024 Basophils (Bld) [#/Vol] 0.1 10 3/uL 0.0-0.1 [facility] Basophils/100 WBC Auto (Bld) on 04-08-2024 Basophils/100 WBC (Bld) 0.4 % 0.2-2.0 [facility] Eosinophils/100 WBC Auto (Bl d)on 04-08-2024 Eosinophils/100 WBC (Bld) 1.7 % 0.9-7.0 [facility] Erythrocyte distribution wid th Auto (RBC) [Ratio]on 04-08-2024 Erythrocyte distribution width (RBC) [Ratio] 13.9 % 11.0-15.0 [facility] Estimated glomerular filtrat ion rate (GFR) non- Americanon 04-08-2024 GFR/1.73 sq M.predicted among non-blacks MDRD (S/P/Bld) [Vol rate/Area] mL/min/{1.73_m2} >=60 [facility] Hematocrit Auto (Bld) [Volum e fraction]on 04-08-2024 Hematocrit (Bld) [Volume fraction] 45.1 % 42.0-54.0 [facility] Hemoglobin [Mass/volume] in Bloodon 04-08-2024 Hemoglobin (Bld) [Mass/Vol] 14.7 g/dL 14.0-18.0 [facility] Kris 04-08-2024 L Specimen: [id number] Received: 04/09/24 Status: KRYSTYNALopez Colon Num: [id number] Spec Type: Surgical Subm Dr: Rc Curtis DPM, MS Tissues: A Extremity - Amputation, Non-Traumatic (R FOREFOOT) B Extremity - Amputation, Non-Traumatic (R FIRST METATARSEL) Procedures: HE/5, Gross/Micro L5/2, Decalcification/2 Age/ Patient Sex Location Account Attending Physician Tyler Mckinney W 63/M LABELL [id number] Rc Curtis DPM, MS SPEC NUM: [id number] RECD: 04/09/24 STATUS: TAMI COLON NUM: [id number] KATHIE: 04/08/[address]: Rc Curtis DPM, MS ENTERED: 04/09/[address] [facility] [address]: Ekta Heath SPEC TYPE: Surgical DEPT: ALEJANDRO JACOBS ENTERED BY: [id number] RECV BY: [id number] ORDERED: HE/5, Gross/Micro L5/2, Decalcification/2 ORDERED: HE/5, [...] of the ulcerated lesion reveals -------- Specimen: [id number] Received: 04/09/24 Status: TAMI Colon Num: [id number] Spec Type: Surgical Subm Dr: Rc Curtis,DPM, MS Tissues: A Extremity - Amputation, Non-Traumatic (R FOREFOOT) B Extremity - Amputation, Non-Traumatic (R FIRST METATARSEL) Procedures: HE/5, Gross/Micro L5/2, Decalcification/2 -------- Patient: Tyler Mckinney [id number] (Continued) -------- Specimen: [id number] Received: 04/09/24 (Continued) Gross Description (Continued) Signed (signature on file) Genaro Zamora MD 04/19/24 1844 -------- Specimen: [id number] Received: 04/09/24 Status: TAMI Colon Num: [id number] Spec Type: Surgical Subm Dr: Rc Curtis,DPShantell, MS Tissues: A Extremity - Amputation, Non-Traumatic (R FOREFOOT) B Extremity - Amputation, Non-Traumatic (R FIRST METATARSEL) Procedures: HE/5, Gross/Micro L5/2, Decalcification/2 -------- Patient: Tyler Mckinney [id number] (Continued) -------- Specimen: [id number] Received: 04/09/24 (Continued) Gross Description (Continued) exposed bone. The lesion is abutting the soft tissue margin. The resection margin of the metatarsals are inked first blue, second green, third yellow, fourth orange, fifth red. Steel Pan Form Placing Supervisor sections are as follows: A1 soft tissue margin en face A2 first metatarsal bone margin en face, (submitted in decal before routine processing) A3 remaining metatarsal bone margins en face, (submitted in decal before routine processing) A4 sales representative door to door section of the lesion with distal first [...] performed supporting the above interpretation CPT Codes 97408 [id number] x2 -------- -------- Specimen: [id number] Received: 04/09/24 Status: TAMI Colon Num: [id number] Spec (more content not included)... Normal [facility] Laboratory - Chemistry and C hemistry - challengeon 04-08-2024 Calcium [Mass/Vol] 10.6 mg/dL High 8.5-10.1 [facility] Chloride [Moles/Vol] 98 mmol/L 98-107 [facility] CO2 [Moles/Vol] 34.6 mmol/L High 21.0-32.0 [facility] Creatinine [Mass/Vol] 1.03 mg/dL 0.70-1.30 [facility] GFR/1.73 sq M.predicted MDRD (S/P/Bld) [Vol rate/Area] mL/min/{1.73_m2} >=60 [facility] Glucose [Mass/Vol] 178 mg/dL High 74-106 [facility] Potassium [Moles/Vol] 4.4 mmol/L 3.5-5.1 [facility] Sodium [Moles/Vol] 135 mmol/L Low 136-145 [facility] Urea nitrogen [Mass/Vol] 16.0 mg/dL 7.0-18.0 [facility] Urea nitrogen/Creatinine [Mass ratio] 15.5 mg/mg [facility] Laboratory - Hematology and Cell countson 04-08-2024 Immature granulocytes/100 WBC (Bld) 1.1 % High 0.0-0.5 [facility] Leukocytes [#/volume] correc beatris for nucleated erythrocytes in Blood by Automated counon 04-08-2024 WBC corrected for nucl RBC Auto (Bld) [#/Vol] 13.3 10 3/uL High 4.0-11.0 [facility] Lymphocytes Auto (Bld) [#/Vo l]on 04-08-2024 Lymphocytes (Bld) [#/Vol] 1.7 10 3/uL 1.2-3.8 [facility] Lymphocytes/100 WBC Auto (Bl d)on 04-08-2024 Lymphocytes/100 WBC (Bld) 12.5 % Low 20.5-60.0 [facility] MCH Auto (RBC) [Entitic mass ]on 04-08-2024 MCH (RBC) [Entitic mass] 31.1 pg 25.9-34.0 [facility] MCHC Auto (RBC) [Mass/Vol]on 04-08-2024 MCHC (RBC) [Mass/Vol] 32.6 g/dL 29.9-35.2 [facility] MCV Auto (RBC) [Entitic vol] on 04-08-2024 MCV (RBC) [Entitic vol] 95.6 fL High 80.0-94.0 [facility] Monocytes Auto (Bld) [#/Vol] on 04-08-2024 Monocytes (Bld) [#/Vol] 1.0 10 3/uL High 0.3-0.8 [facility] Monocytes/100 WBC Auto (Bld) on 04-08-2024 Monocytes/100 WBC (Bld) 7.3 % 1.7-12.0 [facility] Neutrophils Auto (Bld) [#/Vo l]on 04-08-2024 Neutrophils (Bld) [#/Vol] 10.3 10 3/uL High 1.4-6.5 [facility] Neutrophils/100 WBC Auto (Bl d)on 04-08-2024 Neutrophils/100 WBC (Bld) 77.0 % High 43.0-75.0 [facility] No Panel InformationOrdered By: Rc Curtis on 04-08-2024 Acid Fast Smear [facility] AFB Specimen Processing [facility] Anaerobic Cult, Extended Incub [facility] Tissue Culture [facility] No Panel Informationon 04-08 Fungal Smear Result \R\ Fungus Stain [facility] Gram Stain Result 1 \R\ Gram Stain Result [facility] Miscellaneous Test Comment See comment [facility] Comment on above: Specimen Source: ELENA TRT - Foot Right - Foot Rt - 604.000 Eosinophils # (Auto) 0.2 10 3/uL 0.0-0.7 [facility] Immature Granulocyte # (Auto) 0.15 10 3/uL High 0.00-0.03 [facility] Platelet mean volume Auto (B ld) [Entitic vol]on 04-08-2024 Platelet mean volume (Bld) [Entitic vol] 9.8 fL 9.5-13.5 [facility] Platelets Auto (Bld) [#/Vol] on 04-08-2024 Platelets (Bld) [#/Vol] 482 10 3/uL High 150-450 [facility] RBC Auto (Bld) [#/Vol]on RBC (Bld) [#/Vol] 4.72 10 6/uL 4.70-6.10 [facility] Serum or plasma anion gap de terminationon 04-08-2024 Anion gap [Moles/Vol] 6.8 mmol/L [facility] ALL CBC WITH AUTO DIFFon BASOPHILS ABSOLUTE AUTO 0.1 [facility] Basophils/100 WBC (Bld) 0.6 % 0.2 - 2.0 % [facility] Eosinophils/100 WBC (Bld) 2.1 % 0.9 - 7.0 % [facility] Erythrocyte distribution width (RBC) [Ratio] 14.0 % 11.0 - 15.0 % [facility] Hematocrit (Bld) [Volume fraction] 41.9 % Low 42.0 - 54.0 % [facility] Hemoglobin (Bld) [Mass/Vol] 13.7 g/dL Low 14.0 - 18.0 g/dL [facility] IMMATURE GRANULOCYTES ABS AUTO 0.46 High [facility] Immature granulocytes/100 WBC (Bld) 2.9 % High 0.0 - 0.5 % [facility] Interpretation and review of laboratory results Abnormal [facility] LYMPHOCYTES ABSOLUTE AUTO 2.3 [facility] Lymphocytes/100 WBC (Bld) 14.7 % Low 20.5 - 60.0 % [facility] MCH (RBC) [Entitic mass] 31.5 pg 25.9 - 34.0 pg [facility] MCHC (RBC) [Mass/Vol] 32.7 g/dL 29.9 - 35.2 g/dL [facility] MCV (RBC) [Entitic vol] 96.3 fL High 80.0 - 94.0 fL [facility] MONOCYTES ABSOLUTE AUTO 1.2 High [facility] Monocytes/100 WBC (Bld) 7.8 % 1.7 - 12.0 % [facility] NEUTROPHILS ABSOLUTE AUTO 11.4 High [facility] Neutrophils/100 WBC (Bld) 71.9 % 43.0 - 75.0 % [facility] Platelet mean volume (Bld) [Entitic vol] 10.2 fL 9.5 - 13.5 fL [facility] TBH EO # 0.3 [facility] TB PLT 475 High [facility] TB RBC 4.35 Low [facility] TB WBC 15.8 High [facility] Kris 03-29-2024 L Specimen: [id number] Received: 03/29/242590 Status: TAMI Colon Num: [id number] Spec Type: Surgical Subm Dr: Rc Curtis,DPShantell, MS Tissues: A Bone Fragments - Other than Path Fracture (R 1 METARSAL BONE) Procedures: HE, Gross/Micro L3, Decalcification Age/ Patient Sex Location Account Attending Physician Tyler Mckinney 63/M LABELL [id number] Rc Curtis DPM, MS SPEC NUM: [id number] RECD: 03/29/24 STATUS: TAMI COLON NUM: [id number] KATHIE: 03/29/[address]: Rc Curtis DPM, MS ENTERED: 03/29/[address] [facility] [address]: Ekta Heath SPEC TYPE: Surgical DEPT: ALEJANDRO JACOBS ENTERED BY: [id number] RECV BY: [id number] ORDERED: HE, Gross/Micro L3, Decalcification ORDERED: HE, [...] performed supporting the above interpretation -------- Specimen: [id number] Received: 03/29/24 Status: TAMI Colon Num: [id number] Spec Type: Surgical Subm Dr: Rc Curtis DPM, MS Tissues: A Bone Fragments - Other than Path Fracture (R 1 METARSAL BONE) Procedures: HE, Gross/Micro L3, Decalcification -------- Patient: Tyler Mckinney [id number] (Continued) -------- Specimen: [id number] Received: 03/29/24 (Continued) Signed (signature on file) Genaro Zamora MD 04/05/24 170 -------- Specimen: [id number] Received: 03/29/24 Status: TAMI Colon Num: [id number] Spec Type: Surgical Subm Dr: Rc Curtis,DPM, MS Tissues: A Bone Fragments - Other than Path Fracture (R 1 METARSAL BONE) Procedures: DUNCAN, Gross/Micro L3, Decalcification -------- Patient: Tyler Mckinney W [id number] (Continued) -------- Specimen: [id number] Received: 03/29/24 (Continued) CPT Codes 25660 [id number] -------- -------- Specimen: [id number] Received: 03/29/24 Status: TAMI Colon Num: [id number] Spec Type: Surgical Subm Dr: Rc Curtis,CARLOS, MS Tissues: A Bone Fragments - Other than Path Fracture (R 1 METARSAL BONE) Procedures: HE, Gross/Micro L3, Decalcification -------- Patient: MckinneyTyler [id number] (Continued) -------- Signed (signature on file) Genaro Zamora MD 04/05/24 1708 Normal [facility] XR FOOT LT MIN [...] A1Con 2021 ADA RECOMMENDATION SEE BELOW Normal [facility] Comment on above: Result Comment: ADA RECOMMENDED LIMIT 4.0 - 6.0 ADA THERAPEUTIC TARGET < 7.0 ACTION SUGGESTED > 7.0 Performed By: #### A 1C #### [facility] [address] [address] [address] Jennifer Zamora Glucose [Mass/Vol] 212 mg/dL Normal [facility] Comment on above: Performed By: #### A 1C #### [facility] [address] [place], [place] [address] Dr. Jennifer Zamora HbA1c (Bld) [Mass fraction] 9.0 % Critically high 4.5-6.2 [facility] Comment on above: Performed By: #### A 1C #### [facility] [address] [place], [place] [address] Dr. Jennifer Zamora PROF 14(COMP METB)on 10-24-2 022 Albumin [Mass/Vol] 3.4 g/dL Normal 3.4-5.0 [facility] Comment on above: Performed By: #### C MP #### [facility] [address] [place] [address] Dr. Jennifer Zamora Albumin/Globulin [Mass ratio] 0.9 {ratio} Normal [facility] Comment on above: Performed By: #### C MP #### [facility] [address] [address] [address] Jennifer Zamora ALP [Catalytic activity/Vol] 108 U/L Normal 46-116 [facility] Comment on above: Performed By: #### C MP #### [facility] [address] [place] [address] Dr. Jennifer Zamora ALT [Catalytic activity/Vol] 35 U/L Normal 16-63 [facility] Comment on above: Performed By: #### C MP #### [facility] [address] [place] [address] Dr. Jennifer Zamora Anion gap [Moles/Vol] 7.0 mmol/L Normal [facility] Comment on above: Performed By: #### C MP #### [facility] [address] [place] [address] Dr. Jennifer Zamora AST [Catalytic activity/Vol] 11 U/L Critically low 15-37 [facility] Comment on above: Performed By: #### C MP #### [facility] [address] [place] [address] Dr. Jennifer Zamora Bilirubin [Mass/Vol] 0.7 mg/dL Normal 0.2-1.0 [facility] Comment on above: Performed By: #### C MP #### [facility] [address] [place] [address] Dr. Jennifer Zamora Calcium [Mass/Vol] 8.9 mg/dL Normal 8.5-10.1 [facility] Comment on above: Performed By: #### C MP #### [facility] [address] [place] [address] Dr. Jennifer Zamora Chloride [Moles/Vol] 100 mmol/L Normal 98-107 [facility] Comment on above: Performed By: #### C MP #### [facility] [address] [address] [address] Jennifer Zamora CO2 [Moles/Vol] 32.5 mmol/L Critically high 21.0-32.0 [facility] Comment on above: Performed By: #### C MP #### [facility] [address] [address] [address] Jennifer Zamora Creatinine [Mass/Vol] 1.05 mg/dL Normal 0.70-1.30 [facility] Comment on above: Performed By: #### C MP #### [facility] [address] [address] [address] Jennifer Zamora EGFR-AF CHADIAN >60 Normal >=60 [facility] Comment on above: Performed By: #### C MP #### [facility] [address] [place] [address] Dr. Jennifer Zamora EGFR-NON AF CHADIAN >60 Normal >=60 [facility] Comment on above: Performed By: #### C MP #### [facility] [address] [place] [address] Dr. Jennifer Zamora Globulin (S) [Mass/Vol] 3.7 g/dL Normal [facility] Comment on above: Performed By: #### C MP #### [facility] [address] [address] [address] Jennifer Zamora Glucose [Mass/Vol] 175 mg/dL Critically high 74-106 T [facility] Comment on above: Performed By: #### C MP #### [facility] [address] [place] [address] Dr. Jennifer Zamora Potassium [Moles/Vol] 4.5 mmol/L Normal 3.5-5.1 [facility] Comment on above: Performed By: #### C MP #### [facility] [address] [place] [address] Dr. Jennifer Zamora Protein [Mass/Vol] 7.1 g/dL Normal 6.4-8.2 [facility] Comment on above: Performed By: #### C MP #### [facility] [address] [address] [address] Jennifer Zamora Sodium [Moles/Vol] 135 mmol/L Critically low 136-145 [facility] Comment on above: Performed By: #### C MP #### [facility] [address] [address] [address] Jennifer Zamora Urea nitrogen [Mass/Vol] 18.0 mg/dL Normal 7.0-18.0 [facility] Comment on above: Performed By: #### C MP #### [facility] [address] [address] [address] Jennifer Zamora Urea nitrogen/Creatinine [Mass ratio] 17.1 mg/mg Normal [facility] Comment on above: Performed By: #### C MP #### [facility] [address] [address] [address] Jennifer Zamora Vital Signs Date Time Vital Sign Value Performing Clinician Faci lity 02-01-2025 14:090400 Body height 180.34 cm Dara Eisenberg APRN Work Phone: [facility] 02-01-2025 14:09-0400 Body mass index (BMI) [Ratio] 41.7 kg/m2 Dara Eisenberg APRN Work Phone: [facility] 02-01-2025 14:09-0400 Body temperature 96.5 [degF] Dara Eisenberg APRN Work Phone: [facility] 02-01-2025 14:09-0400 Body weight 135.62 kg Dara Eisenberg APRN Work Phone: [facility] 02-01-2025 14:09-0400 Diastolic blood pressure 68 mm[Hg] Dara Eisenberg APRN Work Phone: [facility] 02-01-2025 14:09-0400 Heart rate 102 /min Dara Eisenberg APRN Work Phone: [facility] 02-01-2025 14:09-0400 SaO2% (BldA) [Mass fraction] 96 % Dara Eisenberg APRN Work Phone: [facility] 02-01-2025 14:09-0400 Systolic blood pressure 114 mm[Hg] Dara Eisenberg APRN Work Phone: [facility] 11-05-2024 [id number] Body height 180.34 cm [facility] 11-05-2024 10:26-0400 Body mass index (BMI) [Ratio] 44.7 kg/m2 [facility] 11-05-2024 [id number] Body weight 145.6 kg [facility] 11-05-2024 10:26-0400 Diastolic blood pressure 68 mm[Hg] [facility] 11-05-2024 10:26-0400 Heart rate 98 /min [facility] 11-05-2024 10:26-0400 Respiratory rate 14 /min [facility] 11-05-2024 10:26-0400 SaO2% (BldA) [Mass fraction] 90 % [facility] 11-05-2024 10:26-0400 Systolic blood pressure 128 mm[Hg] [facility] 05-03-2024 14:14-0400 Body height 180.34 cm ROWDY Eisenberg Work Phone: [facility] 05-03-2024 14:14-0400 Body mass index (BMI) [Ratio] 39.3 kg/m2 ROWDY Eisenberg Work Phone: [facility] 05-03-2024 14:14-0400 Body temperature 96.9 [degF] ROWDY Eisenberg Work Phone: [facility] 05-03-2024 14:14-0400 Body weight 128 kg ROWDY Eisenberg Work Phone: [facility] 05-03-2024 14:14-0400 Diastolic blood pressure 86 mm[Hg] ROWDY Eisenberg Work Phone: [facility] 05-03-2024 14:14-0400 Heart rate 108 /min GENERAL SERVICE TECHNICIANFauzia Eisenberg Work Phone: [facility] 05-03-2024 14:14-0400 SaO2% (BldA) [Mass fraction] 92 % GENERAL SERVICE TECHNICIANFauzia Eisenberg Work Phone: [facility] 05-03-2024 14:14-0400 Systolic blood pressure 142 mm[Hg] GENERAL SERVICE TECHNICIANFauzia Eisenberg Work Phone: [facility] 04-05-2024 13:44-0400 Body height 180.34 cm DPM Rc Curtis Work Phone: [facility] 04-05-2024 13:44-0400 Body mass index (BMI) [Ratio] 39.6 kg/m2 DPM Rc Curtis Work Phone: [facility] 04-05-2024 13:44-0400 Body temperature 97.4 [degF] DPM Rc Curtis Work Phone: [facility] 04-05-2024 13:44-0400 Body weight 128.82 kg DPM Rc Curtis Work Phone: [facility] 04-05-2024 13:44-0400 Diastolic blood pressure 70 mm[Hg] DPM Rc Curtis Work Phone: [facility] 04-05-2024 13:44-0400 Heart rate 61 /min DPM Rc Curtis Work Phone: [facility] 04-05-2024 13:44-0400 SaO2% (BldA) [Mass fraction] 87 % DPM Rc Curtis Work Phone: [facility] 04-05-2024 13:44-0400 Systolic blood pressure 134 mm[Hg] DPM Rc Curtis Work Phone: [facility] Encounters Encounter Date Encounter Type Care Provider Facility Start: 02-15-2025 ambulatory ACNP Helen Rand lity:[facility] Start: 02-01-2025 End: 02-01-2025 ambulatory Dara Eisenberg APRN Work Phone: [facility] Work Phone: Start: 02-01-2025 End: 02-01-2025 Patient encounter procedure Dara Eisenberg APRN [facility] Work Phone: Start: 01-27-2025 Non-patient / Non-visit Angelic Gen [facility] Work Phone: Start: 01-24-2025 End: 01-26-2025 Evaluation and management of inpatient Ghassan EllisNimesh Noahjose martinmatt Facility:[facility] Start: 01-24-2025 Emergency department patient visit Manuel Gunterronnie Facility:[facility] Start: 11-05-2024 End: 11-05-2024 ambulatory [facility] Work Phone: Start: 11-05-2024 End: 11-05-2024 Patient encounter procedure [facility] Work Phone: Start: 08-29-2024 Evaluation and management of inpatient MERRILL MIKII [facility] Start: 08-26-2024 Evaluation and management of inpatient BILL BARBARAGUZMAN [facility] Start: 08-24-2024 Evaluation and management of inpatient PALOMO CADENCE [facility] Start: 08-24-2024 Evaluation and management of inpatient PALOMO CADENCE [facility] Start: 08-21-2024 Evaluation and management of inpatient RUDY [facility] Start: 08-21-2024 Evaluation and management of inpatient RUDY [facility] Start: 08-20-2024 Evaluation and management of inpatient RUDY [facility] Start: 08-20-2024 Evaluation and management of inpatient RUDY [facility] Start: 08-19-2024 Evaluation and management of inpatient RUDY [facility] Start: 08-17-2024 Evaluation and management of inpatient RUDY [facility] Start: 08-16-2024 [facility]: 08-16-[facility]24 Evaluation and management of inpatient RUDY [facility] Start: 08-15-2024 Evaluation and management of inpatient HUGO PRAJAPATI [facility] Start: 08-15-2024 End: 09-09-2024 Evaluation and management of inpatient SHAIKH MONO [facility] Start: 08-15-2024 Non-patient / Non-visit [facility] Work Phone: Start: 08-14-2024 Non-patient / Non-visit [facility] Work Phone: Start: 08-10-2024 End: 08-12-2024 Clinisync Result Encounter Shaikh Mono JARRETT Work Phone: [facility] External [facility] Unsolicited Start: 08-10-2024 End: 08-12-2024 Clinisync Result Encounter Shaikh Mono JARRETT Work Phone: [facility] External Department Unsolicited Start: 05-03-2024 End: 05-03-2024 ambulatory ROWDY Eisenberg Work Phone: [facility] Work Phone: Start: 05-03-2024 End: 05-03-2024 Patient encounter procedure ROWDY Eisenberg Work Phone: [facility] Work Phone: Start: 04-12-2024 End: 04-12-2024 ambulatory ROWDY Eisenberg Work Phone: [facility] Work Phone: Start: 04-12-2024 End: 04-12-2024 Patient encounter procedure ROWDY Eisenberg Work Phone: [facility] Infectious Disease Work Phone: Start: 04-08-2024 End: 04-08-2024 ambulatory GENERAL SERVICE TECHNICIANFauzia Diamond Faina Work Phone: [facility] Work Phone: Start: 04-08-2024 End: 04-08-2024 Departed Referred GENERAL SERVICE TECHNICIANFauzia Diamond Faina Work Phone: [facility] Start: 04-08-2024 Non-patient / Non-visit GENERAL SERVICE TECHNICIAN Darajody Eisenberg Work Phone: [facility] Work Phone: Start: 04-05-2024 End: 04-05-2024 Clinisync Result Encounter Shaikh Mono JARRETT Work Phone: [facility] External Department Unsolicited Start: 04-05-2024 End: 04-05-2024 Clinisync Result Encounter Shaikh Mono JARRETT Work Phone: [facility] External Department Unsolicited Start: 04-05-2024 End: 04-05-2024 ambulatory DPM Rc Curtis Work Phone: [facility] Work Phone: Start: 04-05-2024 End: 04-05-2024 Patient encounter procedure DPM Rc Curtis Work Phone: [facility] Work Phone: Start: 03-29-2024 End: 03-29-2024 [facility] Work Phone: Start: 03-29-2024 End: 03-29-2024 Departed Referred DPM Rc Curtis Work Phone: [facility] Start: 01-26-2024 Non-patient / Non-visit DPM Rc Curtis Work Phone: [facility] Work Phone: Start: 07-14-2022 End: 07-15-[address] EDELMIRA SANTILLAN Facility:[facility]1 Start: 05-13-2022 End: 05-14-[address] MADELEINE MARCELINO Facility:[facility] Procedures Date Procedure Procedure Detail Performing Clinician Start: 08-10-2024 Bacteria identified in Urine by Culture Shaikh Mono JARRETT Work Phone: Start: 04-08-2024 Acid Fast Smear GENERAL SERVICE TECHNICIAN Elmer Eisenberg Work Phone: Start: 04-08-2024 AFB Specimen Processing ROWDY Eisenberg Work Phone: Start: 04-08-2024 Anaerobic Cult, Extended Incub ROWDY Eisenberg Work Phone: Start: 04-08-2024 Tissue Culture GENERAL SERVICE TECHNICIANFauzia Eisenberg Work Phone: Start: 04-05-2024 ALL CBC WITH AUTO DIFF Shaikh Mono JARRETT Work Phone: History of amputatio n of foot Status post partial amputation of right foot History of amputatio n of foot Status post partial amputation of right foot Dara Eisenberg APRN HYPERBARIC NURSE Plan of Treatment Date Care Activity Detail Author Start: 04-08-2024 Acid Fast Culture Acid Fast Culture [facility] Payers Date Payer Category Payer Private Health Insurance [id number] 2024 Self-pay 2024 Medicare [id number] 1961 Self-pay [id number] 1959 Unknown [id number] 1959 Unknown [id number] 1958 Unknown [id number] 1958 Unknown [id number] [id number] .593 1958 Unknown [id number] [id number] .727 1958 Unknown [id number] 2.16.840.1.703127.3.579.2 .72 1958 Unknown [id number] [id number] .727 1958 Unknown [id number] 2.16.840.1.862807.3.579.2 .727 1958 Unknown [id number] 2.16.840.1.066244.3.579.2 .72 1958 Unknown [id number] 2.16.840.1.063966.3.579.2 .72 1958 Unknown [id number] 2.16.840.1.935558.3.579.2 .72 1958 Unknown [id number] 2.16.840.1.130952.3.579.2 .72 1958 Unknown [id number] [id number] .727 Medicare [employer] [employer] [id number] Private Health Insurance [facility] [id number] Unknown [id number] [id number] .531 Unknown Regular Insurance [id number] Social History Date Type Detail Facility Tobacco smoking status MAIS Unknown if ever smoked [facility] Work Phone: Start: 1960 Sex Assigned At Male F [facility] Start: 04-05-2024 Tobacco smoking status NHIS Smoker (finding) [facility] Tobacco smoking status MAIS Tobacco smoking consumption unknown [facility] Healthcare Start: 1960 Sex assigned at Not on file [facility] Gender identity Not on file [facility] Health are Start: 11-05-2024 Sex [facility]finding[facility] Start: 04-05-2024 Tobacco smoking status NHIS Smokes tobacco daily (finding) [facility] Medical Equipment Procedure Code Equipment Code [...] Locations R1: This test was performed at: [facility], [address] [place] [address], [facility] , , [facility] Comment on above: Performed By: #### 1 [id number] #### [facility] [address] [place] [address] 01-31-2025 Note Microbiology PROCEDURE: Blood Culture Charcoal [...] Locations R1: This test was performed at: [facility], [address] [place] [address], [address]- , , [facility] Comment on above: Performed By: #### 1 [id number] #### [facility] [address] [place] [id number] 01-26-2025 Note Patient Education - Text Atrial [...] signals of the heart. ??? An ambulatory cardiac monitor technician to record your heart's activity for a [...] signs of a (more content not included)... [facility] 01-26-2025 Note Discharge Summary Admission and [...] Insulin dependent type 2 diabetes mellitus, 01/24/2025 hardener helper (current) use of insulin, 01/24/2025 Medical problem [...] regimen. Patient was insistent on trying an yppa-yyz-[id number] supplement that he stated would cure diabetes [...] his wounds and recommended continued follow-up with [place] [facility] where he receives care. Patient successfully passed a voiding trial and was voiding easily after removal of Brunson. Creatinine had improved from 1.4-0.8 on discharge. Medically stable for discharge home on 01/26/2025. Follow-up PCP in 7 to 10 days Continued care at [place] [facility] Referral sent to Dr. Rosen in [place] for endocrinology follow-up for better glucose control. Discussed this with patient and he was agreeable. Follow-up with [facility] anticoagulation clinic Medication changes Continue metoprolol [...] Completed -- 01/24/25 20:11:27 EDT Consult to [facility] ([facility] Consult) - Ordered -- 01/24/25 20:22:00 EDT, [...] & normal b (more content not included)... [facility] Comment on above: Result Comment: Elec tronically Signed By: Ghassan Ding III, DO\.br\Date and Time Signed: 01/26/25 16:13 EDT 01-26-2025 [...] signals of the heart. ??? An ambulatory cardiac monitor technician to record your heart's activity for a [...] signs of a (more content not included)... [facility] 01-26-2025 Note Progress Note - Matt [...] Plan; TBD Please contact Pharmacy at ext. [phone] if there are any questions. [facility] 01-25-2025 Note Interdisciplinary No te - OT Pt is seen for OT evaluation. AMPAC score: 16/24. Pt is agreeable only to sitting EOB, no further transfers or mobility and becomes very agitated due to BLE pain. Pt is below functional baseline for ADL performance. OT to follow for treatment. Recommending HH vs SNF at this time pending progress with treatment. [facility] 01-25-2025 Note Progress Note-Physic janae Assessment/Plan [...] Orders Initial Hospital Care/Day Moderate 55 Minutes 28127 Sbsq Hospital Care/Day Moderate 35 Minutes 49255 2. Cellulitis of leg (L03.119: Cellulitis of [...] Monitoring on telemetry. Patient noncompliant with anticoagulation. [id number] score is 4. Reports that Eliquis dose [...] despite clear documentation from previous admission in [place] in August 2024. Reports that he stopped taking all of his diabetes medications. 8. Insulin dependent type 2 diabetes mellitus (E11.9: Type 2 diabetes mellitus without complications) A1c: 12.6 BGT ACHS with sliding scale insulin as needed Lantus 30 units nightly at home. Patient noncompliant. Tolerated 20units QHS 01/24, uptitrate to 30 units today. Goal glucose will be less than 180. prison (current) use of insulin (Z79.4: hardener helper (current) use of insulin) Orders: acetaminophen, 975 [...] Capillary Glucose POC Cardiac Monitoring Consult to [facility] Creatine Kinase (more content not included)... [facility] Comment on above: Result Comment: Elec tronically Signed By: Ghassan Ding III, DO\.br\Date and Time Signed: 01/25/25 13:28 EDT 01-25-2025 [...] list: All Problems Smoker / SNOMED CT 271729854 / Confirmed Added secondary to documentation in Social History. Tobacco use / SNOMED CT 2838944135 / Confirmed, Active Problems (2) Smoker Tobacco [...] 25:) Heart Rate Monitored 88 bpm (JAN 25 11:26) Resp Rate 16 br/min (JAN 24 18:00) SBP 97 mmHg (JAN 25:) DBP 65 mmHg (PAULINE 08 11:20) Weight 126.3 kg (JAN 25 05:00) BMI [...] an outpatient with the wound center in [place]. [facility] Comment on above: Result Comment: Elec tronically Signed By: Linda GONZALEZ, Sina Cruz\.br\Date and Time Signed: 01/25/25 12:56 EDT 01-25-2025 Note Interdisciplinary No te - PT PT Evaluation done this date. Pt. with on AM-PAC this date. He requires supervision to CGAx1 with all activity. Uses w/c and FWW at baseline. Recommend home with home health PT. [facility] 01-25-2025 Note Progress Note - Phar [...] Plan; TBD Please contact Pharmacy at ext. [phone] if there are any questions. [facility] 01-24-2025 Note History and Physical Basic [...] would be 75 kg. Given 2 L. [place] sepsis bolus will be 2.25 L, ever, [...] specifically. He follows with Dr. Curtis at [place] for podiatry and had a right transmetatarsal amputation in the past that appeared well-healed. He denies ever seeing vascular surgery. He follows with [place] [facility]. Stated that he has not [...] Normal alignment. Ext (more content not included)... [facility] Comment on above: Result Comment: Elec tronically Signed By: Ghassan Ding III, DO.br\Date and Time Signed: 01/24/25 20:28 EDT 01-24-2025 [...] at home: Medicines ??? Take and use vetf-fpt-wjqwdzn and prescription medicines and creams only as [...] limbs and wais (more content not included)... [facility] 01-24-2025 Note Progress Note-Nurse tourniquerts removed by puneet [facility] 01-24-2025 Note Progress Note - Matt [...] Plan; TBD Please contact Pharmacy at ext. [phone] if there are any questions. Spoke with Dr. Ding - he is ordering a lovenox bridge [facility] 01-24-2025 Note Progress Note-Nurse derrell stopped after 4 minutes for blood cultures that are new order. puneet informed. [facility] 01-24-2025 Note Progress Note-[facility]urse [facility] d[facility] not say [facility]. no saturating properly on at home O2 [facility] 11-05-2024 Evaluation note Diagnosis Onset Date [...] Venous insufficiency (chronic) (peripheral) acute October 10:18am [facility] Work Phone: [phone] NoteUnSelect [facility] 09-09-2024 [facility]-19-2025 NoteC[facility]02-19-2025 NoteC[facility] 09-07-2024 NoteDISCHARGE PLANNING UPDATE Patient now agreeable to SNF placement. Insurance authorization submitted for [facility] in [place]. Awaiting insurance decision.[facility]02-18-2025 NoteUnSelect Medical [facility] 09-07-2024 NoteUn[facility] Medical [facility]02-18-2025 NoteUn[facility]02-18-2025 NoteC[facility] 09-07-2024 NoteC[facility]02-18-2025 NoteC[facility]02-17-2025 NoteC[facility] 09-06-2024 NoteC[facility]02-17-2025 NoteC[facility]02-17-2025 NoteC[facility] 09-05-2024 NoteUnSelect Medical [facility]02-16-2025 NoteUn[facility]02-15-2025 NoteUn[facility] 09-04-2024 NoteUn[facility]02-15-2025 NoteUn[facility]02-14-2025 NoteUn[facility] 09-03-2024 NoteUn[facility]02-14-2025 NoteUn[facility]02-13-2025 NoteUn[facility] 09-02-2024 NoteUn[facility]02-13-2025 NoteUn[facility]02-13-2025 NoteUn[facility] 09-01-2024 NoteDISCHARGE PLANNING UPDATE [facility] ([place], [place]) is FOC. Per their admissions team, they are submitting to insurance for authorization today, 09/01.[facility] 09-01-2024 NoteC[facility]02-12-2025 NoteC[facility]02-11-2025 NoteC[facility] 08-31-2024 NoteC[facility]02-11-2025 NoteC[facility]02-11-2025 NoteC[facility] 08-30-2024 NoteC[facility]02-10-2025 NoteC[facility]02-10-2025 NoteC[facility] 08-30-2024 NoteC[facility]02-09-2025 NoteC[facility]02-08-2025 NoteC[facility] 08-28-2024 NoteC[facility]02-08-2025 NoteC[facility]02-07-2025 NoteC[facility] 08-27-2024 NoteUnSelect [facility]02-06-2025 NoteUn[facility]02-06-2025 NoteC[facility] 08-26-2024 NoteUn[facility]02-06-2025 NoteUn[facility]02-05-2025 NoteUn[facility] 08-25-2024 NoteUn[facility]02-05-2025 NoteUn[facility]02-05-2025 NoteUn[facility] 08-24-2024 NoteUn[facility]02-04-2025 NoteUn[facility]02-04-2025 NoteC[facility] 08-24-2024 NotePatient is off unit for testing at this time.[facility]02-04-2025 NoteC[facility]02-04-2025 Note [facility]02-04-2025 NoteC[facility]02-04-2025 NoteC[facility]02-04-2025 Note [facility]02-03-2025 NoteC[facility]02-03-2025 NoteC[facility]02-02-2025 Note [facility]02-01-2025 NoteC[facility]02-01-2025 NoteC[facility]01-31-2025 Note [facility]01-31-2025 NoteC[facility]01-30-2025 NoteUnSelect [facility]01-29-2025 Note [facility]01-28-2025 NoteUnSelect Medical [facility]01-28-2025 NoteUn[facility]01-27-2025 Note [facility]01-27-2025 NoteC[facility]01-27-2025 NoteUnSelect Medical [facility] HospitalEvaluation noteNo assessment information availableAdena [facility] Work Phone: Evaluation note* Diagnosis Onset Date Resolution Status Type 2 diabetes mellitus acu [facility] Work Phone: Evaluation note* Diagnosis Onset Date Resolution Status COPD (chronic obstructive pulmonary disease) acute Hypertension acute MRSA cellulitis of right foot acute Nicotine dependence acute Non-compliance acute Oxygen dependent acute Type 2 diabetes mellitus acu te Ulcer of right foot due to type 2 diabetes mellitus acute [facility] Work Phone: Evaluation note* Diagnosis Onset Date Resolution Status COPD (chronic obstructive pulmonary disease) acute Hypertension acute MRSA cellulitis of right foot acute Nicotine dependence acute Non-compliance acute Oxygen dependent acute Type 2 diabetes mellitus acu te Ulcer of right foot due to type 2 diabetes mellitus acute Acute osteomyelitis of foot acute [facility] Work Phone: Evaluation note* Diagnosis Onset Date Resolution Status COPD (chronic obstructive pulmonary disease) acute Hypertension acute MRSA cellulitis of right foot acute Nicotine dependence acute Non-compliance acute Oxygen dependent acute Type 2 diabetes mellitus acu te Ulcer of right foot due to type 2 diabetes mellitus acute Acute osteomyelitis of foot acute Low back pain acute [facility] Work Phone: Evaluation note* Diagnosis Onset Date Resolution Status Admit Date COPD (chronic obstructive pulmonary disease) acute November 05, 10:18am Hypertension acute November 05, 2024 10:18am Mixed hyperlipidemia acute Apri l 2024 10:18am Nicotine dependence acute November 05, 2024 10:18am Non-compliance acute October 10:18am Oxygen dependent acute November 052024 10:18am Status post partial amputati on of right foot acute November 05, 2024 10:18am Type 2 diabetes mellitus acute November 05, 2024 10:18am [facility] Work Phone: Reason for referral (narrative)No reason for referral information availableMercy Health Clerm[facility] Hospital Work Phone: Summary Purpose Family History No Family History Records Found Relationship Condition Age at Onset Recorded Date/T mecca mother Malignant neoplasm of cervix Unknown Advance Directives No Advanced Directives Records Found Advance Directive Response Recorded Date/ Time Advance Directives No March 2:40pm Chief Complaint and Reason for Visit Chief Complaint Admit Date F/U intermediate stay/Medications-HIGH R ISK November 05, 2024 10:18am Amb Documentation January 27, 2025 8:33 am [facility] follow up February 01, 2025 2:06 pm Reason for Visit Admit Date Atrial flutter November 05, 2024 10: 18am Chronic back pain November 05, 2024 10: 18am COPD (chronic obstructive pulmonary dise [facility]) November 05, 2024 10:18am Heart failure November [...] 2024 10:18am Chief Complaint Admit Date F/U intermediate stay/Medications-HIGH R ISK November 05, 2024 10:18am Reason for Visit Admit Date COPD (chronic obstructive pulmonary dise [facility]) November 05, 2024 10:18am Hypertension November 05, [...] content) DATE CREATED AUTHOR 07/19/2022 [facility] DATE CREATED AUTHOR AUTHOR'S ORGANIZ ATION 04/20/2024 [facility] DATE CREATED AUTHOR AUTHOR'S ORGANIZ ATION 10/20/2024 [facility] DATE CREATED AUTHOR AUTHOR'S ORGANIZ ATION 01/28/2025 Trimble Harney [facility] DATE CREATED AUTHOR AUTHOR'S ORGANIZ ATION 01/29/2025 Trimble Edgar [facility] DATE CREATED AUTHOR AUTHOR'S ORGANIZ ATION 01/30/2025 Trimble Edgar [facility] DATE CREATED AUTHOR AUTHOR'S ORGANIZ ATION 02/04/2025 [facility] DATE CREATED AUTHOR AUTHOR'S ORGANIZ ATION 02/17/2025 Bagdad Edgar [facility] DATE CREATED AUTHOR AUTHOR'S ORGANIZ ATION 04/01/2025 [facility] Care Teams (unrecognized sec tion and content) Team Status: Active Member Role Status Dates Magnolia Chavez LPN Attending Provider Active St art: January 26, 2024 Team Status: Inactive Member Role Status Dates Rc Curtis DPM MS Attending Provider Active Start: March 29, 2024 End: March 29, 2024 Team Status: Active Member Role Status Dates Dara Eisenberg APRN P[employer] WE[employer] DEVELOPER-C Primary Care Provider Active Team Status: Inactive Member Role Status Dates Dara Eisenberg APRN PYTH[employer] WE[employer] DEVELOPER-C Primary Care Provider, Attending Provider Active Start: April 05, 2024 End: April 05, 2024 Team Status: Active Member Role Status Dates Dara Eisenberg APRN PYTHON WE[employer] DEVELOPER-C Primary Care Provider, Attending Provider Active Start: April 08, 2024 Team Status: Inactive Member Role Status Dates Dara Eisenberg APRN PYTHON WEB DEVELOPER-C Primary Care Provider Active Start: March 212023 End: April 08, 2024 Rc Curtis DPM MS Attending Provider Active Start: April 08, 2024 End: April 08, 2024 Team Status: Inactive Member Role Status Dates Dara Eisenberg APRN PYTHON WE[employer] DEVELOPER-C Primary Care Provider Active Start: March 222023 End: April 12, 2024 Navdeep Trujillo MD Attending Provider Active Sta rt: April 12, 2024 End: April 12, 2024 Team Status: Inactive Member Role Status Dates Dara Eisenberg APRN PYTHON WE[employer] DEVELOPER-C Primary Care Provider, Attending Provider Active Start: May 03, 2024 End: May 03, 2024 Team Status: Active Member Role Status Dates Dara Eisenberg APRN PY[employer] WE[employer] DEVELOPER-C Primary Care Provider Active Start: July Shaikh Mono MD Attending Provider Active Sta rt: August 14, 2024 Team Status: Active Member Role Status Dates Dara Eisenberg APRN P[employer] DEVELOPER-C Primary Care Provider Active Start: July Shaikh Mnoo MD Attending Provider Active Sta rt: August 15, 2024 Team Status: Inactive Member Role Status Dates Dara Eisenberg APRN PYTHON WE[employer] DEVELOPER-C Primary Care Provider, Attending Provider Active Start: November 05, 2024 End: November 05, 2024 Team Status: Inactive Member Role Status Dates Dara Eisenberg APRN [employer] Primary Care Provider Active Start: November 05, 2024 End: November 05, 2024 Dara Eisenberg APRN [employer]C Attending Provider Act mook Start: November 05, 2024 End: November 05, 2024 Team Status: Active Member Role Status Dates Dara Eisenberg APRN [employer] Primary Care Provider Active Start: January 27, 2025 Angelic Blevins CMA Attending Provider Active Start: January 27, 2025 Team Status: Inactive Member Role Status Dates Dara Eisenberg APRN [employer]C Primary Care Provider Active Start: February 01, 2025 End: February 01, 2025 Dara Eisenberg APRN [employer]-C Attending Provider Act mook Start: February [...] BE BASED ON THE PRIMARY CLINICAL RECORDS. [email or web address] provides no warranty or guarantee of the accuracy or completeness of information in this document.
== END 2025-04-05 12:38 | disposition home or self-care (01) ==
LOC: WC 12:38
PROVIDERS: PCP Nurse Practitioner Family; Visit Provider Physician Assistant
DX: I87.313 Chronic venous hypertension (idiopathic) with ulcer of bilateral lower extremity (principal); L97.822 Non-pressure chronic ulcer of other part of left lower leg with fat layer exposed; L97.812 Non-pressure chronic ulcer of other part of right lower leg with fat layer exposed
CPT/HCPCS: 29581; G0463

== ENCOUNTER 2025-04-05 14:54 | Inpatient (IN) | payer MEDICARE, SELFPAY ==
--- OUTSIDE RECORDS SUMMARY | 2024-04-08 04:15 | XMS_ITS ---
Author Organization The [facility] in [place] Address [address] [place] [address] Care Team Providers Care Prick Stitcher Name Role Phone Dara Eisenberg CNP Primary Care Provider U Rc Prado Unavailable [phone] REASON FOR VISIT RT TMA Encounters Encounter Location Date Provider Diagnosis [facility] OUTPATIENT [address] [place] [address] 04/08/2024 Rc Curtis Plan Of Treatment No Information Progress Notes * Onofre SMITHDOB:1960 ([age] yo M)Acc No.[id number]:04/08/2024 UNLOCKED PROGRESS NOTE Patient: Onofre CORDERO Provider: Los Curtis DPM, MS :1960 A ge:63 Y S ex:Male Date:04/08/2024 Address:[address] [place], [place] [phone] Pcp:Dara Eisenberg CNP Check Out:12:18 PM EST * * Electronic signature of Cm Curtis DPM on 04/07/2025 at 01:19 PM EDT Sign off status: Pending Visit Status: C HK (Check Out) * Provider: Los Curtis DPM, MS Date: 04/08/2024 Generated for Cati ng/Leisag/eTransmitting on: 04/07/2025 01:19 PM EDT
--- OUTSIDE RECORDS SUMMARY | 2024-04-08 04:15 | XMS_ITS ---
Author Organization The [facility] in [place] Address [address] [place] [address] Care Team Providers Care Batch Mixer Name Role Phone Dara Eisenberg CNP Primary Care Provider U Rc Prado Unavailable [phone] REASON FOR VISIT RT TMA Encounters Encounter Location Date Provider Diagnosis [facility] OUTPATIENT [address] [place] [address] 04/08/2024 Rc Curtis Plan Of Treatment No Information Progress Notes * Onofre SMITHDOB:1960 ([age] yo M)Acc No.[id number]:04/08/2024 UNLOCKED PROGRESS NOTE Patient: Onofre CORDERO Provider: Los Curtis DPM, MS :1960 A ge:63 Y S ex:Male Date:04/08/2024 Address:[address] [place], [place] [phone] Pcp:Dara Eisenberg CNP Check Out:12:18 PM EST * * Electronic signature of Cm Curtis DPM on 04/14/2025 at 10:30 AM EDT Sign off status: Pending Visit Status: C HK (Check Out) * Provider: Los Curtis DPM, MS Date: 04/08/2024 Generated for Cati ng/Fasallyg/eTransmitting on: 04/14/2025 10:30 AM EDT
[2025-04-05] VITALS (37 sets, daily range): BP systolic 117–134; BP diastolic 79–89; PULSE 68–139; TEMP 36.6; O2SAT 92–96; BMI 36.5
--- NOTE | 2025-04-05 15:09 | PC.NURSE ---
Pt presents via EMS from the wound care clinic Per EMS pt was sent due to back pain and weakness Pt presents with bilateral surgical boots and compression stockings due to chronic foot ulcers Pt presents with an 18g IV established in the left wrist abd ib 2liters of O2 via nasal canula Pt states he wears 5 liters at home all the time but he does not have a mobile O2 tank so doesn't wear it away from home This nurse then placed him on 5 liters of O2 via nasal canula Pt states I want to be transferred to [facility] before this nurse is even able to assess Pt is cursing and moaning loudly in pain pt states this pain has been going on since July but it is worse now than it has been - started yesterday Pt states he lives at home and a friend drove him to the wound clinic today Pt states it was not easy to get in that vehicle either Pt given a warm blanket, his call light, and a urinal that he brought with him
--- NOTE | 2025-04-05 15:18 | XR_ITS ---
The [address] [address] Patient Name: TYLER SMITH MRN: [id number] date: 1960 Sex: M Assigned Patient Location: ED.MAIN Current Patient Location: ED.MAIN Accession/Order Number: [id number] Exam Date: 04/05/2025 15:25 Report Date: 04/05/2025 15:52 At the request of: JILLIAN WATSON MD Procedure: XR chest 1V PA CHEST: CLINICAL HISTORY: sob COMPARISON: 08/15/2019 Mildly enlarged cardiomediastinal silhouette. Minimal perihilar congestion/CHF findings. Lung bases are clear. No effusion or pneumothorax. XR/XR chest 1V IMPRESSION: Suspect minimal perihilar congestion/CHF Impression dictated by: Anthony Watts M.D. 04/05/2025 3:52 PM Dictation Location: [place] [address] Electronically authenticated by: [id number] Y Date: 04/05/2025 15:52
--- NOTE | 2025-04-05 15:18 | ECG_ITS ---
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 Measurements Intervals Viola Rate: 125 P: -[id number] MS: -[id number] QRS: -67 QRSD: 98 T: 106 QT: 294 QTc: 368 Interpretive Statements 10784 Atrial fibrillation with rapid ventricular response 7200 Abnormal left axis deviation 7500 Abnormal QRS-T angle 9140 abnormal rhythm ECG Compared to ECG 08/10/2024 20:10:12 Left-axis deviation now present Myocardial infarct finding no longer present ST (T wave) deviation no longer present Electronically Signed On 04-05-2025 20:18:19 EDT by DONALD KATZ M.D.
[2025-04-05 15:25] LABS: Hematocrit 43.2 % (42.0-54.0); Hemoglobin 14.9 g/dL (14.0-18.0); Mean Corpuscular HGB Conc 34.5 g/dL (29.9-35.2); Mean Corpuscular Hemoglobin 31.2 pg (25.9-34.0); Mean Corpuscular Volume 90.4 fL (80.0-94.0); Platelet Count 284 10^3/uL (150-450); Red Blood Count 4.78 10^6/uL (4.70-6.10); White Blood Count 18.6 10^3/uL (4.0-11.0)
[2025-04-05 15:31] LABS: INR 1.04; Prothrombin Time 11.0 sec (9.0-11.6)
[2025-04-05 15:40] LABS: Basophils Abs Manual 0.18 10^3/uL (0.00-0.10); Basophils Percent Manual 1.0 % (0.2-2.0); Eosinophils Absolute Manual 0.00 10^3/uL (0.00-0.70); Eosinophils Percent Manual 0.0 % (0.9-7.0); Lymphocytes Absolute Manual 0.74 10^3/uL (1.20-3.80); Lymphocytes Percent Manual 4.0 % (20.5-60.0); Monocytes Absolute Manual 1.30 10^3/uL (0.30-0.80); Monocytes Percent Manual 7.0 % (1.7-12.0); Segmented Neut Absolute Manual 16.36 10^3/uL (1.4-6.5); Segmented Neutrophils % Manual 88.0 (43.0-75.0)
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
[2025-04-05 15:50] LABS: Alanine Aminotransferase 14 U/L (16-63); Albumin Globulin Ratio 0.4; Albumin Level 2.1 g/dL (3.4-5.0); Alkaline Phosphatase 143 U/L (46-116); Anion Gap 10.7; Aspartate Amino Transferase 11 U/L (15-37); Blood Urea Nitrogen 29.0 mg/dL (7.0-18.0); Calcium 10.1 mg/dL (8.5-10.1); Carbon Dioxide 29.3 mmol/L (21.0-32.0); Chloride 89 mmol/L (98-107); Estimated GFR (African America 59 (>=60 mL/min/1.73m^2); Estimated GFR (Non-African Ame 49 (>=60 mL/min/1.73m^2); Globulin 5.6 g/dL; Glucose 499 mg/dL (74-106); Potassium 4.0 mmol/L (3.5-5.1); Sodium 125 mmol/L (136-145); Total Protein 7.7 g/dL (6.4-8.2)
[2025-04-05] MEDS: METHYLPREDNISOLONE SOD SUCC PF 125 MG/2 ML VIAL IVP (16:04)
[2025-04-05] MEDS: IPRATROPIUM/ALBUTEROL SULFATE 3 ML AMPUL.NEB IH (16:10)
[2025-04-05 16:44] LABS: SARS-CoV-2 Ag NEGATIVE (NEGATIVE)
[2025-04-05] MEDS: FUROSEMIDE 40 MG/4 ML VIAL IVP (17:07)
[2025-04-05] MEDS: DILTIAZEM HCL 25 MG/5 ML VIAL 20 MG IV (17:07)
[2025-04-05 17:20] LABS: NT Pro B Type Natriuretic Pept 312.0 pg/mL (<=900.0)
[2025-04-05] MEDS: AZITHROMYCIN 500 MG in 0.9 % SODIUM CHLORIDE 250 ML 250 MG IV (18:39)
[2025-04-05 18:41] LABS: Lactate/Lactic Acid 1.4 mmol/L (0.4-2.0)
--- NOTE | 2025-04-05 18:43 | XR_ITS ---
The [address] [address] Patient Name: TYLER SMITH MRN: [id number] date: 1960 Sex: M Assigned Patient Location: ER Current Patient Location: ER Accession/Order Number: [id number] Exam Date: 04/05/2025 18:55 Report Date: 04/05/2025 19:12 At the request of: MIRTA HERNANDEZ Procedure: XR foot RT min 3V XR foot RT min 3V 04/05/2025 7:04 PM SIGNS AND SYMPTOMS: ^Plantar foot wound, pain ^Y PROTOCOL: Frontal, lateral, and oblique radiographs of the right foot COMPARISON: 04/08/2024 FINDINGS: The toes of the neck dated. There is a soft tissue swelling suggesting cellulitis. There is an osteolytic process along the remnants of the metatarsals suggesting osteoarthritis. Subcutaneous emphysema is noted along the anterior and medial aspect of the remnant of the first metatarsal. XR/XR foot RT min 3V IMPRESSION: Diffuse cellulitis with findings suggesting osteomyelitis of the metatarsal remnants. This is greatest along the first metatarsal remnant. Impression dictated by: Elkin Jeff M.D. 04/05/2025 7:12 PM Dictation Location: [place] [address] Electronically authenticated by: [id number] Date: 04/05/2025 19:12
[2025-04-05 19:08] LABS: Glucose Urine UA >=1000 mg/dL (NEGATIVE)
[2025-04-05 19:19] LABS: Cast Seen? NONE SEEN #/LPF (NONE SEEN); Crystals Seen? None Seen #/HPF (None Seen)
[2025-04-05 19:20] LABS: Urine Culture Indicated YES-FRMC
[2025-04-05] MEDS: OXYCODONE HCL 5 MG TABLET PO (20:44)
[2025-04-06] VITALS (73 sets, daily range): BP systolic 97–142; BP diastolic 64–94; PULSE 77–118; TEMP 36.6; O2SAT 83–97; BMI 38.7
--- OUTSIDE RECORDS SUMMARY | 2025-04-06 00:04 | XMS_ITS | CCD ---
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 on above: Performed By: #### 2 286679 #### [facility] [address] [place] [address] WBC 17.4 E9/L High 4.0-11.0 [facility] Comment on above: Performed By: #### 2 [id number] #### [facility] [address] [place] [address] Capillary Glucose POCon 0 Glucose [Mass/Vol] 490 mg/dL Abnormal 55-99 [facility] Comment on above: Result Comment: Cindy calle RN/MD Performed By: #### 2 [id number] #### [facility] [address] [place] [address] ED Clinical Summaryon 2024 ED Clinical Summary ED Clinical Summary [address] [address] ED Clinical Summary Person Information [facility] Age: 64 Years : 1960 Sex: Male Language: Cuban PCP: DARA EISENBERG CNP Marital Status: Single Phone: [phone] Visit Id: Visit Reason: Medical problem - major; VERICOSE VEIN TOURNIQUET Speciality: Acuity: 2 Enc Type: Inpatient Med Service: Medical Arrival: 01/24/2025 11:29:33 Discharge: LOS: 000 07:25 Checkin: 01/24/2025 11:29:33 Checkout: 01/24/2025 18:54:25 Dispo Type: Admitted as IP to this [facility] EVENTS: Event Name Event Status Request Date/Time [...] Patient Care Request 01/24/2025 18:23:37 ADDRESS: [id number] [facility] [address] PHYS DOC NOTES: MEDICAL INFORMATION: Prescriptions Given: New Medications [id number], [address], [place] [id number], [phone] doxycycline (doxycycline hyclate 100 mg Cap) 1 Capsules By Mouth 2 times a day for 7 Days. Refills: 0. PATIENT EDUCATION INFORMATION: Instructions: Cellulitis, Adult, Tcuu-sa-Lzzm; Bleeding Varicose Veins Follow up: With: Address: When: DARA EISENBERG [address], [address] [place] [id number] [phone] Business (1) In 3 days 01/27/2025 Comments: Call Dr for diagnosis based follow up DIAGNOSIS: 1:Severe sepsis; 2:Cellulitis of leg; 3:KRISTINE (acute kidney injury); 4:Atrial fibrillation with RVR; 5: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; 6:Hyponatremia; 7:Noncompliance with medications Normal [facility] ED Note-Physicianon 01-25-20 ED Note-Physician ED Note-Physician [...] of the patient. Sepsis Data [x] Patient's [place] body weight was considered in sepsis fluid [...] nonco (more content not included)... Normal [facility] Comment on above: Result Comment: Elec tronically Signed By: Puneet Jung PA-C\.br\Date and Time Signed: 01/24/25 13:02 EDT\.br\Electronically Co-Signed By: Puneet Jung PA-C.br\Date and Time Co-Signed: 01/24/25 15:25 EDT\.br\Electronically Co-Signed By: Puneet Jung PA-C.br\Date and Time Co-Signed: 01/24/25 16:27 EDT\.br\Electronically Co-Signed By: Justine Otto, Manuel Mathis\.br\Date and Time Co-Signed: 01/24/25 18:08 EDT ED Patient Summaryon 025 ED Patient Summary ED Patient Summary [place] [address] Patient Discharge Instructions Person Information Name: TYLER MCKINNEY Age: 64 Years Arrival Date: 01/24/2025 11:29:33 Discharge Diagnosis: 1:Severe sepsis; 2:Cellulitis of leg; 3:KIRSTINE (acute kidney injury); 4:Atrial fibrillation with RVR; 5: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; 6:Hyponatremia; 7:Noncompliance with medications Primary Care Physician: DARA EISENBERG CNP Provider Information Primary Provider: Manuel Fletcher M.D. Advanced Developmental Specialist:Puneet Jung PA-C The exam and treatment you received in the Emergency Department were for an urgent problem and are not intended as complete care. It is important that you follow up with a doctor, nurse practitioner, or physician???s workforce development assistant for ongoing care. If your symptoms [...] Instructions: With: Address: When: DARA EISENBERG [address], [place] [address] [phone] Business (1) In 3 days 01/27/2025 Comments: Call Dr for diagnosis based follow up In the event that this physician does not participate in your insurance network, please consult with your insurance company to find a nearby participating provider. Patient Education Materials: Cellulitis, Adult, Docj-yu-Fzml; Bleeding Varicose Veins A MESSAGE TO ALL PATIENTS REGARDING OPIOIDS PRESCRIPTION OPIOIDS: WHAT YOU NEED TO KNOW Prescription opioids can be used to help relieve tcgpvpum-rl-atjehf pain and are often prescribed following a [...] toilet, f (more content not included)... Normal [facility] Lactic Acidon 01-24-2025 Lactic Acid Lvl 1.0 mmol/L Normal 0.5-2.2 [facility] Comment on above: Performed By: #### 2 [id number] #### [facility] [address] [place] [address] PT & PTTon 01-24-2025 INR Coag (PPP) [Relative time] 1.03 {INR} Invalid Interpretation Code [facility] Comment on above: Result Comment: INR results are specifically intended to assess patients stabilized on long-term Anticoagulation therapy suggested INR???s ???Less Intensive Anticoagulation??? 2.0 ??? 3.0 Conventional Range 3.0 ??? 4.5 Performed By: #### 1 [id number] #### [facility] [address] [place] [address] PT 11.5 second(s) Normal 9.4-12.5 [facility] Comment on above: Result Comment: 15 d [...] the same coagulation reagent and instrumentation as [facility]. Currently there are no coagulation studies available worldwide for children to 14 days, and no normal ranges. Performed By: #### 1 [id number] #### [facility] [address] [place] [address] PTT 27.7 second(s) Normal 25.1-36.5 [facility] Comment on above: Result Comment: Para meter [...] the same coagulation reagent and instrumentation as [facility]. Currently there are no coagulation studies available worldwide for children to 14 days, and no normal ranges. Heparin therapeutic range (represented by Anti-Factor Xa activity of 0.2 - 0.4 U/mL) corresponds to PTT of 56.6 - 109.0 sec. Performed By: #### 1 [id number] #### [facility] [address] [place] [address] Pre-Arrival Noteon Pre-Arrival Note Pre-Arrival Note Pre-Arrival Summary Name: , Current Date: 01/24/2025 11:30:22 EDT Gender: Date of : Age: Pre-Arrival Type: EMS ETA: 01/24/2025 11:50:00 EDT Primary Care Physician: Presenting Problem: varicose vein tourniquet Pre-Arrival User: [address] Referring Source: Location: [place] Completion Date/Time: 01/24/2025 11:20:00 [facility] Emergency Department Pre-Hospital Report Form Vital Signs: Pre-Hospital Report: Treatment in Route: Response to Treatment: Misc. Issues: Normal [facility] Procalcitoninon 01-24-2025 Procalcitonin .09 ng/mL Normal .00-.50 [facility] Comment on above: Result Comment: <0.5 [...] to 24 hours. Performed By: #### 2 [id number] #### [facility] [address] [place] [address] Troponin 0 Hr.on 01-24-2025 Troponin HS 4.60 pg/mL Low 15.90-38.40 [facility] Comment on above: Result Comment: The 95% CI (Confidence Interval) PPV (Positive Predictive Value) for myocardial infarction in females is 38 pg/mL, in males 51 pg/mL. The results should be used in conjunction with clinical conditions of myocardial infarction. (Access High Sensitivity Troponin I Instructions For Use, Charli Garden, February 2018) Performed By: #### 1 [id number] #### [facility] [address] [place] [address] UA with Cult Rflxon 01-25-20 25 Color (U) Light-Yellow Normal Yellow [facility] Comment on above: Result Comment: Micr oscopic readings are only performed on those samples that meet specific criteria set forth by [facility]. Performed By: #### 4 [id number] #### [facility] [address] [place] [address] Ketones Ql (U) Negative Normal Negative [facility] Comment on above: Performed By: #### 4 [id number] #### [facility] [address] [place] [address] UA Blood 1+ mg/dL Abnormal Negative [facility] Comment on above: Performed By: #### 4 [id number] #### [facility] [address] [place] [address] UA Clarity Clear Normal Clear [facility] Comment on above: Performed By: #### 4 [id number] #### [facility] [address] [place] [address] UA Glucose 4+ mg/dL Abnormal Negative [facility] Comment on above: Performed By: #### 4 [id number] #### [facility] [address] [place] [address] UA Leuk Est Negative Normal Negative [facility] Comment on above: Performed By: #### 4 [id number] #### [facility] [address] [place] [address] UA Mucous Trace Normal Negative [facility] Comment on above: Performed By: #### 4 [id number] #### [facility] [address] [place] [address] UA Nitrite Negative Normal Negative [facility] Comment on above: Performed By: #### 4 [id number] #### [facility] [address] [place] [address] UA pH 5.0 Invalid Interpretation Code 5.0-9.0 [facility] Comment on above: Performed By: #### 4 [id number] #### [facility] [address] [place] [address] UA Protein Negative Normal Negative [facility] Comment on above: Performed By: #### 4 [id number] #### [facility] [address] [place] [address] UA RBC 4-20 Abnormal 0-3 [facility] Comment on above: Performed By: #### 4 [id number] #### [facility] [address] [place] [address] UA Spec Grav 1.020 Invalid Interpretation Code 1.005-1.030 [facility] Comment on above: Performed By: #### 4 [id number] #### [facility] [address] [place] [address] UA Urobilinogen Negative Normal Negative [facility] Comment on above: Performed By: #### 4 [id number] #### [facility] [address] [place] [address] UA WBC 0-5 Normal 0-5 [facility] Comment on above: Performed By: #### 4 [id number] #### [facility] [address] [place] [address] Urobilinogen (U) [Mass/Vol] Negative Normal Negative [facility] Comment on above: Performed By: #### 4 [id number] #### [facility] [address] [place] [address] UA Spec Desc Clean Catch Normal [facility] Comment on above: Performed By: #### 4 [id number] #### [facility] [address] [place] [address] XR Chest 2 Viewson XR Chest 2 [...] Krishna Ray MD Transcribed by: [employer] Technologist: CONCENTRATOR OPERATOR Normal [facility] eGFRon 01-24-2025 eGFR 55 mL/min/1.73 m2 Low >=59 [facility] Comment on above: Performed By: #### 1 [id number] #### [facility] [address] [place] [address] HbA1c HPLC (Bld) [Mass fract ion]on 11-05-2024 HbA1c (Bld) [Mass fraction] 10.1 % [facility] CBC WITH AUTO DIFFERENTIALon 09-09-2024 Basophils (Bld) [#/Vol] 0.05 10*3/uL Normal 0.00-0.[address] [facility] Comment on above: Performed By: #### L [id number] ####[facility] ([facility])[address] [place] [address] Basophils/100 WBC (Bld) 0.6 % Normal 0.0-1.[address] [facility] Comment on above: Performed By: #### L [id number] ####[facility] ([facility])[address] [place] [place] [address] Eosinophils (Bld) [#/Vol] 0.43 10*3/uL Normal 0.00-0.[address] [facility] Comment on above: Performed By: #### L [id number] ####[facility] ([facility])[address] [place] [address] Eosinophils/100 WBC (Bld) 5.0 % Normal 0.0-6.[address] [facility] Comment on above: Performed By: #### L [id number] ####[facility] ([facility])[address] [place] [address] Erythrocyte distribution width (RBC) [Ratio] 15.1 % High 11.5-15.[address] [facility] Comment on above: Performed By: #### L [id number] ####[facility] ([facility])[address] [place] [address] ERYTHROCYTE MEAN CORPUSCULAR HEMOGLOBIN CONCENTRATION (G/DL) BY AUTOMATED 31.1 g/dL Low 32.0-35.[address] [facility] Comment on above: Performed By: #### L [id number] ####[facility] ([facility])[address] [place] [address] Hematocrit (Bld) [Volume fraction] 48.8 % Normal 39.0-55.[address] [facility] Comment on above: Performed By: #### L [id number] ####[facility] ([facility])[address] [place] [address] Hemoglobin (Bld) [Mass/Vol] 15.2 g/dL Normal 13.0-17.[address] [facility] Comment on above: Performed By: #### L [id number] ####[facility] ([facility])[address] [place] [address] Immature granulocytes (Bld) [#/Vol] 0.05 10*3/uL Normal 0.00-0.[address] [facility] Comment on above: Performed By: #### L [id number] ####[facility] ([facility])[address] [place] [address] Immature granulocytes/100 WBC (Bld) 0.6 % Normal 0.0-1.[address] [facility] Comment on above: Performed By: #### L [id number] ####[facility] ([facility])[address] [place] [address] Lymphocytes (Bld) [#/Vol] 1.59 10*3/uL Normal 1.20-4.[address] [facility] Comment on above: Performed By: #### L [id number] ####[facility] ([facility])[address] [place] [address] Lymphocytes/100 WBC (Bld) 18.5 % Low 20.0-45.[address] [facility] Comment on above: Performed By: #### L [id number] ####[facility] ([facility])[address] [place] [address] MCH (RBC) [Entitic mass] 28.8 pg Normal 27.0-33.[address] [facility] Comment on above: Performed By: #### L [id number] ####[facility] ([facility])[address] [place] [address] MCV (RBC) [Entitic vol] 92.6 fL Normal 82.0-98.[address] [facility] Comment on above: Performed By: #### L [id number] ####[facility] ([facility])[address] [place] [address] Monocytes (Bld) [#/Vol] 0.90 10*3/uL Normal 0.10-1.[address] [facility] Comment on above: Performed By: #### L [id number] ####[facility] ([facility])[address] [place] [address] Monocytes/100 WBC (Bld) 10.5 % Normal 5.0-12.[address] [facility] Comment on above: Performed By: #### L [id number] ####[facility] ([facility])[address] [place] [address] Neutrophils (Bld) [#/Vol] 5.56 10*3/uL Normal 1.60-7.[address] [facility] Comment on above: Performed By: #### L [id number] ####[facility] [place] [address] Neutrophils/100 WBC (Bld) 64.8 % Normal 40.0-72.[address] [facility] Comment on above: Performed By: #### L [id number] ####[facility] ([facility] [place] [address] NRBC (PER 100 WBCS) BY AUTOMATED COUNT 0.0 % Normal [address] [facility] Comment on above: Performed By: #### L [id number] ####[facility] ([facility] [place] [address] PLATELETS (10*3/UL) IN BLOOD AUTOMATED COUNT 208 10*3/uL Normal 150-[address] [facility] Comment on above: Performed By: #### L [id number] ####[facility] ([facility])[address] [place] [address] RBC (Bld) [#/Vol] 5.27 10*6/uL Normal 4.20-5.70 [facility] Comment on above: Performed By: #### L [id number] ####[facility] [place] [address] WBC (Bld) [#/Vol] 8.58 10*3/uL Normal 4.00-10.60 [facility] Comment on above: Performed By: #### L [id number] ####[facility] ([facility])[address] [place] [address] DSon 09-09-2024 DS [facility] MAGNESIUMon 09-09-2024 Magnesium [Mass/Vol] 1.7 mg/dL Low 1.9-2.7 [facility] Comment on above: Performed By: #### L [id number] ####[facility] ([facility])[address] [place] [address] PHOSPHORUSon 09-09-2024 Magnesium [Mass/Vol] 3.2 mg/dL Normal 2.5-5.0 [facility] Comment on above: Performed By: #### L [id number] ####[facility] ([facility])[address] [place] [address] POCT GLUCOSE METER UNSOLICIT ED RESULTSon 09-09-2024 Glucose [Mass/Vol] 114 mg/dL High 70-105 [facility] Comment on above: Order Comment: Waive d Testing in the ED is performed under the ED CLIA certificate #[id number]. Result Comment: [email or web address] [email or web address] Performed By: #### L [id number] ####[facility] ([facility] [place] [address] 30on 09-08-2024 [address] [facility] [address] [facility] CBC WITH AUTO DIFFERENTIALon 09-08-2024 Basophils (Bld) [#/Vol] 0.06 10*3/uL Normal 0.00-0.[address] [facility] Comment on above: Performed By: #### L [id number] ####[facility] ([facility] [place] [address] Basophils/100 WBC (Bld) 0.8 % Normal 0.0-1.[address] [facility] Comment on above: Performed By: #### L [id number] ####[facility] ([facility])[address] [place] [address] Eosinophils (Bld) [#/Vol] 0.43 10*3/uL Normal 0.00-0.[address] [facility] Comment on above: Performed By: #### L [id number] ####[facility] ([facility])[address] [place] [address] Eosinophils/100 WBC (Bld) 5.5 % Normal 0.0-6.[address] [facility] Comment on above: Performed By: #### L [id number] ####[facility] ([facility])[address] [place] [address] Erythrocyte distribution width (RBC) [Ratio] 15.2 % High 11.5-15.[address] [facility] Comment on above: Performed By: #### L [id number] ####[facility] ([facility])[address] [place] [address] ERYTHROCYTE MEAN CORPUSCULAR HEMOGLOBIN CONCENTRATION (G/DL) BY AUTOMATED 30.8 g/dL Low 32.0-35.[address] [facility] Comment on above: Performed By: #### L [id number] ####[facility] ([facility])[address] [place] [address] Hematocrit (Bld) [Volume fraction] 45.4 % Normal 39.0-55.[address] [facility] Comment on above: Performed By: #### L [id number] ####[facility] ([facility])[address] [place] [address] Hemoglobin (Bld) [Mass/Vol] 14.0 g/dL Normal 13.0-17.[address] [facility] Comment on above: Performed By: #### L [id number] ####[facility] ([facility])[address] [place] [address] Immature granulocytes (Bld) [#/Vol] 0.03 10*3/uL Normal 0.00-0.[address] [facility] Comment on above: Performed By: #### L [id number] ####[facility] ([facility] [place] [address] Immature granulocytes/100 WBC (Bld) 0.4 % Normal 0.0-1.[address] [facility] Comment on above: Performed By: #### L [id number] ####[facility] ([facility] [place] [address] Lymphocytes (Bld) [#/Vol] 1.82 10*3/uL Normal 1.20-4.[address] [facility] Comment on above: Performed By: #### L [id number] ####[facility] ([facility])[address] [place] [address] Lymphocytes/100 WBC (Bld) 23.2 % Normal 20.0-45.[address] [facility] Comment on above: Performed By: #### L [id number] ####[facility] ([facility] [place] [address] MCH (RBC) [Entitic mass] 29.1 pg Normal 27.0-33.[address] [facility] Comment on above: Performed By: #### L [id number] ####[facility] ([facility])[address] [place] [address] MCV (RBC) [Entitic vol] 94.4 fL Normal 82.0-98.[address] [facility] Comment on above: Performed By: #### L [id number] ####[facility] ([facility])[address] [place] [address] Monocytes (Bld) [#/Vol] 0.88 10*3/uL Normal 0.10-1.[address] [facility] Comment on above: Performed By: #### L [id number] ####[facility] ([facility])[address] [place] [address] Monocytes/100 WBC (Bld) 11.2 % Normal 5.0-12.[address] [facility] Comment on above: Performed By: #### L [id number] ####[facility] ([facility])[address] [address] Neutrophils (Bld) [#/Vol] 4.62 10*3/uL Normal 1.60-7.[address] [facility] Comment on above: Performed By: #### L [id number] ####[facility] ([facility])[address] [address] Neutrophils/100 WBC (Bld) 58.9 % Normal 40.0-72.[address] [facility] Comment on above: Performed By: #### L [id number] ####[facility] ([facility])[address] [place] [address] NRBC (PER 100 WBCS) BY AUTOMATED COUNT 0.0 % Normal [address] [facility] Comment on above: Performed By: #### L [id number] ####[facility] ([facility])[address] [place] [address] PLATELETS (10*3/UL) IN BLOOD AUTOMATED COUNT 231 10*3/uL Normal 150-[address] [facility] Comment on above: Performed By: #### L [id number] ####[facility] ([facility])[address] [address] RBC (Bld) [#/Vol] 4.81 10*6/uL Normal 4.20-5.70 [facility] Comment on above: Performed By: #### L [id number] ####[facility] ([facility])[address] [address] WBC (Bld) [#/Vol] 7.84 10*3/uL Normal 4.00-10.60 [facility] Comment on above: Performed By: #### L [id number] ####[facility] ([facility])[address] [address] MAGNESIUMon 09-08-2024 Magnesium [Mass/Vol] 1.6 mg/dL Low 1.9-2.7 [facility] Comment on above: Performed By: #### L [id number] ####[facility] ([facility])[address] [place] [address] NURSNOTEon 09-08-2024 NURSNOTE Normal [facility] PHOSPHORUSon 09-08-2024 Magnesium [Mass/Vol] 3.4 mg/dL Normal 2.5-5.0 [facility] Comment on above: Performed By: #### L [id number] ####[facility] ([facility])[address] [place] [address] POCT GLUCOSE METER UNSOLICIT ED RESULTSon 09-08-2024 Glucose [Mass/Vol] 244 mg/dL High 70-105 [facility] Comment on above: Order Comment: Waive d Testing in the ED is performed under the ED CLIA certificate #[id number]. Result Comment: droc kol Performed By: #### L [id number] ####[facility] ([facility])[address] [place] [address] Glucose [Mass/Vol] 165 mg/dL High 70-105 [facility] Comment on above: Order Comment: Waive d Testing in the ED is performed under the ED CLIA certificate #[id number]. Result Comment: ndub [email or web address] Performed By: #### L [id number] ####[facility] ([facility])[address] [place] [address] Glucose [Mass/Vol] 110 mg/dL High 70-105 [facility] Comment on above: Order Comment: Waive d Testing in the ED is performed under the ED CLIA certificate #[id number]. Result Comment: [email or web address] [email or web address] Performed By: #### L [id number] ####[facility] ([facility])[address] [place] [address] Glucose [Mass/Vol] 157 mg/dL High 70-105 [facility] Comment on above: Order Comment: Waive d Testing in the ED is performed under the ED CLIA certificate #[id number]. Result Comment: [email or web address] [email or web address] Performed By: #### L [id number] ####[facility] ([facility])[address] [address] 30on 09-07-2024 [address] [facility] [address] [facility] BASIC METABOLIC PANELon 08-21 Anion gap [Moles/Vol] 9 mmol/L Normal 7-20 [facility] Comment on above: Performed By: #### L [id number] ####[facility] ([facility])[address] [place] [address] Calcium [Mass/Vol] 9.6 mg/dL Normal 8.6-10.3 [facility] Comment on above: Performed By: #### L [id number] ####[facility] ([facility])[address] [place] [address] Chloride [Moles/Vol] 100 mmol/L Normal 98-107 [facility] Comment on above: Performed By: #### L [id number] ####[facility] ([facility])[address] [place] [address] CO2 [Moles/Vol] 32 mmol/L High 21-31 [facility] Comment on above: Performed By: #### L [id number] ####[facility] ([facility])[address] [place] [address] Creatinine [Mass/Vol] 0.78 mg/dL Normal 0.70-1.30 [facility] Comment on above: Performed By: #### L [id number] ####[facility] ([facility])[address] [place] [address] GLOMERULAR FILTRATION RATE ML/MIN/1.73 SQ M.PREDICTED 99.0 mL/min/1.73m*2 Normal >60.0 [facility] Comment on above: Result Comment: The [facility]???s estimated glomerular filtration rate (eGFR) will [...] of individuals. Performed By: #### L [id number] ####[facility] ([facility])[address] [place] [address] Glucose [Mass/Vol] 153 mg/dL High 70-100 [facility] Comment on above: Performed By: #### L [id number] ####[facility] ([facility])[address] [place] [address] Potassium [Moles/Vol] 4.1 mmol/L Normal 3.5-5.1 [facility] Comment on above: Performed By: #### L [id number] ####[facility] ([facility])[address] [place] [address] Sodium [Moles/Vol] 137 mmol/L Normal 136-145 [facility] Comment on above: Performed By: #### L [id number] ####[facility] ([facility])[address] [place] [address] Urea nitrogen [Mass/Vol] 19 mg/dL Normal 7-[address] [facility] Comment on above: Performed By: #### L [id number] ####[facility] ([facility])[address] [place] [address] UREA NITROGEN/CREATININE (MASS RATIO) IN SER/PLAS 24.[address] [facility] Comment on above: Performed By: #### L [id number] ####[facility] ([facility])[address] [place] [address] CBC WITH AUTO DIFFERENTIALon 09-07-2024 Basophils (Bld) [#/Vol] 0.06 10*3/uL Normal 0.00-0.[address] [facility] Comment on above: Performed By: #### L [id number] ####[facility] ([facility])[address] [place] [address] Basophils/100 WBC (Bld) 0.8 % Normal 0.0-1.[address] [facility] Comment on above: Performed By: #### L [id number] ####[facility] ([facility])[address] [place] [address] Eosinophils (Bld) [#/Vol] 0.49 10*3/uL Normal 0.00-0.[address] [facility] Comment on above: Performed By: #### L [id number] ####[facility] ([facility])[address] [place] [address] Eosinophils/100 WBC (Bld) 6.8 % High 0.0-6.[address] [facility] Comment on above: Performed By: #### L [id number] ####[facility] ([facility])[address] [place] [address] Erythrocyte distribution width (RBC) [Ratio] 15.3 % High 11.5-15.[address] [facility] Comment on above: Performed By: #### L [id number] ####[facility] ([facility])[address] [place] [address] ERYTHROCYTE MEAN CORPUSCULAR HEMOGLOBIN CONCENTRATION (G/DL) BY AUTOMATED 30.9 g/dL Low 32.0-35.[address] [facility] Comment on above: Performed By: #### L [id number] ####[facility] ([facility])[address] [place] [address] Hematocrit (Bld) [Volume fraction] 45.9 % Normal 39.0-55.[address] [facility] Comment on above: Performed By: #### L [id number] ####[facility] ([facility] [place] [address] Hemoglobin (Bld) [Mass/Vol] 14.2 g/dL Normal 13.0-17.[address] [facility] Comment on above: Performed By: #### L [id number] ####[facility] ([facility])[address] [place] [address] Immature granulocytes (Bld) [#/Vol] 0.04 10*3/uL Normal 0.00-0.[address] [facility] Comment on above: Performed By: #### L [id number] ####[facility] ([facility])[address] [place] [address] Immature granulocytes/100 WBC (Bld) 0.6 % Normal 0.0-1.[address] [facility] Comment on above: Performed By: #### L [id number] ####[facility] ([facility])[address] [place] [address] Lymphocytes (Bld) [#/Vol] 1.82 10*3/uL Normal 1.20-4.[address] [facility] Comment on above: Performed By: #### L [id number] ####[facility] ([facility])[address] [place] [address] Lymphocytes/100 WBC (Bld) 25.3 % Normal 20.0-45.[address] [facility] Comment on above: Performed By: #### L [id number] ####[facility] ([facility])[address] [place] [address] MCH (RBC) [Entitic mass] 29.2 pg Normal 27.0-33.[address] [facility] Comment on above: Performed By: #### L [id number] ####[facility] ([facility])[address] [place] [address] MCV (RBC) [Entitic vol] 94.4 fL Normal 82.0-98.[address] [facility] Comment on above: Performed By: #### L [id number] ####[facility] ([facility])[address] [place] [address] Monocytes (Bld) [#/Vol] 0.74 10*3/uL Normal 0.10-1.[address] [facility] Comment on above: Performed By: #### L [id number] ####[facility] ([facility])[address] [place] [address] Monocytes/100 WBC (Bld) 10.3 % Normal 5.0-12.[address] [facility] Comment on above: Performed By: #### L [id number] ####[facility] ([facility])[address] [place] [address] Neutrophils (Bld) [#/Vol] 4.04 10*3/uL Normal 1.60-7.[address] [facility] Comment on above: Performed By: #### L [id number] ####[facility] ([facility])[address] [address] Neutrophils/100 WBC (Bld) 56.2 % Normal 40.0-72.[address] [facility] Comment on above: Performed By: #### L [id number] ####[facility] ([facility] [address] NRBC (PER 100 WBCS) BY AUTOMATED COUNT 0.0 % Normal [address] [facility] Comment on above: Performed By: #### L [id number] ####[facility] ([facility] [place] [address] PLATELETS (10*3/UL) IN BLOOD AUTOMATED COUNT 234 10*3/uL Normal 150-[address] [facility] Comment on above: Performed By: #### L [id number] ####[facility] ([facility])[address] [place] [address] RBC (Bld) [#/Vol] 4.86 10*6/uL Normal 4.20-5.70 [facility] Comment on above: Performed By: #### L [id number] ####[facility] ([facility])[address] [address] WBC (Bld) [#/Vol] 7.19 10*3/uL Normal 4.00-10.60 [facility] Comment on above: Performed By: #### L [id number] ####[facility] ([facility])[address] [place] [address] MAGNESIUMon 09-07-2024 Magnesium [Mass/Vol] 1.7 mg/dL Low 1.9-2.7 [facility] Comment on above: Performed By: #### L [id number] ####[facility] ([facility])[address] [place] [address] NURSNOTEon 09-07-2024 NURSNOTE Signed off to Ian engel RN [facility] NURSNOTE HOB up @ 40 degrees, NO c/o of pain, or SOB at this time Urinal at bedside Call light within reach IV INT'd, intact, no redness noted Pulse ox--97% O 2 cont. On pt. Per nasal cannula @ 4 L/min NC Telemetry cont. On pt [facility] NURSNOTE [facility] NURSNOTE Tried to call Elias, pt's brother, no answer, still, at this time, 3rd attempt [facility] NURSNOTE [facility] NURSNOTE Pt's family brought him a hamburger last night, and the pt. Is eating it now. Pt. Encouraged not to eat, since the hamburger has been sitting out all night. Pt. Cont. To eat burger. [facility] NURSNOTE Eyes closed resp. Easy @ 18/min Pulse ox--98% Telemetry cont. On pt [facility] Orders Onlyon 09-07-2024 Orders Only [id number] Tyler Mckinney 1960 M Date Provider Department Center 09/07/[id number], JENN*[facility] [place] [facility] No family history on file [facility] PHOSPHORUSon 09-07-2024 Magnesium [Mass/Vol] 3.5 mg/dL Normal 2.5-5.0 [facility] Comment on above: Performed By: #### L [id number] ####[facility] ([facility])[address] [place] [address] POCT GLUCOSE METER UNSOLICIT ED RESULTSon 09-07-2024 Glucose [Mass/Vol] 200 mg/dL High 70-105 [facility] Comment on above: Order Comment: Waive d Testing in the ED is performed under the ED CLIA certificate #[id number]. Result Comment: droc kol Performed By: #### L [id number] ####[facility] ([facility])[address] [place] [address] Glucose [Mass/Vol] 211 mg/dL High 70-105 [facility] Comment on above: Order Comment: Waive d Testing in the ED is performed under the ED CLIA certificate #[id number]. Result Comment: awul ff3 Performed By: #### L [id number] ####[facility] ([facility])[address] [place] [address] Glucose [Mass/Vol] 298 mg/dL High 70-105 [facility] Comment on above: Order Comment: Waive d Testing in the ED is performed under the ED CLIA certificate #[id number]. Result Comment: awul ff3 Performed By: #### L [id number] ####[facility] ([facility])[address] [place] [address] Glucose [Mass/Vol] 155 mg/dL High 70-105 [facility] Comment on above: Order Comment: Waive d Testing in the ED is performed under the ED CLIA certificate #[id number]. Result Comment: awul ff3 Performed By: #### L [id number] ####[facility] ([facility])[address] [place] [address] 30on 09-06-2024 [address] [facility] [address] [facility] BASIC METABOLIC PANELon 08-21 Anion gap [Moles/Vol] 11 mmol/L Normal 7-20 [facility] Comment on above: Performed By: #### L [id number] ####[facility] ([facility])[address] [place] [address] Calcium [Mass/Vol] 9.8 mg/dL Normal 8.6-10.3 [facility] Comment on above: Performed By: #### L [id number] ####[facility] ([facility])[address] [place] [address] Chloride [Moles/Vol] 98 mmol/L Normal 98-107 [facility] Comment on above: Performed By: #### L [id number] ####[facility] ([facility])[address] [place] [address] CO2 [Moles/Vol] 31 mmol/L Normal 21-31 [facility] Comment on above: Performed By: #### L [id number] ####[facility] ([facility])[address] [place] [address] Creatinine [Mass/Vol] 0.90 mg/dL Normal 0.70-1.30 [facility] Comment on above: Performed By: #### L [id number] ####[facility] ([facility])[address] [place] [address] GLOMERULAR FILTRATION RATE ML/MIN/1.73 SQ M.PREDICTED 94.8 mL/min/1.73m*2 Normal >60.0 [facility] Comment on above: Result Comment: The [facility]???s estimated glomerular filtration rate (eGFR) will [...] of individuals. Performed By: #### L [id number] ####[facility] ([facility])[address] [place] [address] Glucose [Mass/Vol] 244 mg/dL High 70-100 [facility] Comment on above: Performed By: #### L [id number] ####[facility] [place] [address] Potassium [Moles/Vol] 3.9 mmol/L Normal 3.5-5.1 [facility] Comment on above: Performed By: #### L [id number] ####[facility] [place] [address] Sodium [Moles/Vol] 136 mmol/L Normal 136-145 [facility] Comment on above: Performed By: #### L [id number] ####[facility] [place] [address] Urea nitrogen [Mass/Vol] 18 mg/dL Normal 7-[address] [facility] Comment on above: Performed By: #### L [id number] ####[facility] ([facility])[address] [place] [address] UREA NITROGEN/CREATININE (MASS RATIO) IN SER/PLAS 20.[address] [facility] Comment on above: Performed By: #### L [id number] ####[facility] ([facility])[address] [place] [address] CBC WITH AUTO DIFFERENTIALon 09-06-2024 Basophils (Bld) [#/Vol] 0.07 10*3/uL Normal 0.00-0.[address] [facility] Comment on above: Performed By: #### L [id number] ####[facility] ([facility])[address] [place] [address] Basophils/100 WBC (Bld) 1.0 % Normal 0.0-1.[address] [facility] Comment on above: Performed By: #### L [id number] ####[facility] ([facility])[address] [place] [address] Eosinophils (Bld) [#/Vol] 0.40 10*3/uL Normal 0.00-0.[address] [facility] Comment on above: Performed By: #### L [id number] ####[facility] ([facility])[address] [place] [address] Eosinophils/100 WBC (Bld) 5.9 % Normal 0.0-6.[address] [facility] Comment on above: Performed By: #### L [id number] ####[facility] ([facility])[address] [place] [address] Erythrocyte distribution width (RBC) [Ratio] 15.2 % High 11.5-15.[address] [facility] Comment on above: Performed By: #### L [id number] ####[facility] ([facility])[address] [place] [address] ERYTHROCYTE MEAN CORPUSCULAR HEMOGLOBIN CONCENTRATION (G/DL) BY AUTOMATED 30.7 g/dL Low 32.0-35.[address] [facility] Comment on above: Performed By: #### L [id number] ####[facility] ([facility])[address] [place] [address] Hematocrit (Bld) [Volume fraction] 47.3 % Normal 39.0-55.[address] [facility] Comment on above: Performed By: #### L [id number] ####[facility] ([facility])[address] [place] [address] Hemoglobin (Bld) [Mass/Vol] 14.5 g/dL Normal 13.0-17.[address] [facility] Comment on above: Performed By: #### L [id number] ####[facility] ([facility])[address] [place] [address] Immature granulocytes (Bld) [#/Vol] 0.05 10*3/uL Normal 0.00-0.[address] [facility] Comment on above: Performed By: #### L [id number] ####[facility] ([facility])[address] [place] [address] Immature granulocytes/100 WBC (Bld) 0.7 % Normal 0.0-1.[address] [facility] Comment on above: Performed By: #### L [id number] ####[facility] ([facility])[address] [place] [address] Lymphocytes (Bld) [#/Vol] 1.52 10*3/uL Normal 1.20-4.[address] [facility] Comment on above: Performed By: #### L [id number] ####[facility] ([facility])[address] [place] [address] Lymphocytes/100 WBC (Bld) 22.5 % Normal 20.0-45.[address] [facility] Comment on above: Performed By: #### L [id number] ####[facility] ([facility])[address] [place] [address] MCH (RBC) [Entitic mass] 29.1 pg Normal 27.0-33.[address] [facility] Comment on above: Performed By: #### L [id number] ####[facility] ([facility])[address] [address] MCV (RBC) [Entitic vol] 95.0 fL Normal 82.0-98.[address] [facility] Comment on above: Performed By: #### L [id number] ####[facility] ([facility])[address] [place] [address] Monocytes (Bld) [#/Vol] 0.74 10*3/uL Normal 0.10-1.[address] [facility] Comment on above: Performed By: #### L [id number] ####[facility] ([facility])[address] [place] [address] Monocytes/100 WBC (Bld) 10.9 % Normal 5.0-12.[address] [facility] Comment on above: Performed By: #### L [id number] ####[facility] ([facility])[address] [place] [address] Neutrophils (Bld) [#/Vol] 3.98 10*3/uL Normal 1.60-7.[address] [facility] Comment on above: Performed By: #### L [id number] ####[facility] ([facility] [place] [address] Neutrophils/100 WBC (Bld) 59.0 % Normal 40.0-72.[address] [facility] Comment on above: Performed By: #### L [id number] ####[facility] ([facility] [place] [address] NRBC (PER 100 WBCS) BY AUTOMATED COUNT 0.0 % Normal [address] [facility] Comment on above: Performed By: #### L [id number] ####[facility] ([facility])[address] [place] [address] PLATELETS (10*3/UL) IN BLOOD AUTOMATED COUNT 251 10*3/uL Normal 150-[address] [facility] Comment on above: Performed By: #### L [id number] ####[facility] ([facility])[address] [place] [address] RBC (Bld) [#/Vol] 4.98 10*6/uL Normal 4.20-5.70 [facility] Comment on above: Performed By: #### L [id number] ####[facility] ([facility])[address] [place] [address] WBC (Bld) [#/Vol] 6.76 10*3/uL Normal 4.00-10.60 [facility] Comment on above: Performed By: #### L [id number] ####[facility] ([facility])[address] [place] [address] MAGNESIUMon 09-06-2024 Magnesium [Mass/Vol] 1.6 mg/dL Low 1.9-2.7 [facility] Comment on above: Performed By: #### L [id number] ####[facility] ([facility])[address] [place] [address] NURSNOTEon 09-06-2024 NURSNOTE Signed off to Ian engel RN--with bedside rounding Pt. Cont. To sit up in a chair at bedside Call light within reach Normal [facility] NURSNOTE Normal [facility] NURSNOTE Pt refused to go yeni k to bed at this time Pt. Cont. To sit up in a chair at bedside No c/o of SOB or nausea at this time Resp. Easy @ 18/min Normal [facility] PHOSPHORUSon 09-06-2024 Magnesium [Mass/Vol] 3.4 mg/dL Normal 2.5-5.0 [facility] Comment on above: Performed By: #### L [id number] ####[facility] ([facility])[address] [place] [address] POCT GLUCOSE METER UNSOLICIT ED RESULTSon 09-06-2024 Glucose [Mass/Vol] 255 mg/dL High 70-105 [facility] Comment on above: Order Comment: Waive d Testing in the ED is performed under the ED CLIA certificate #[id number]. Result Comment: [email or web address] Performed By: #### L [id number] ####[facility] ([facility])[address] [place] [address] Glucose [Mass/Vol] 208 mg/dL High 70-105 [facility] Comment on above: Order Comment: Waive d Testing in the ED is performed under the ED CLIA certificate #[id number]. Result Comment: [email or web address] Performed By: #### L [id number] ####[facility] ([facility])[address] [place] [address] Glucose [Mass/Vol] 173 mg/dL High 70-105 [facility] Comment on above: Order Comment: Waive d Testing in the ED is performed under the ED CLIA certificate #[id number]. Result Comment: [email or web address] Performed By: #### L [id number] ####[facility] ([facility])[address] [place] [address] Glucose [Mass/Vol] 210 mg/dL High 70-105 [facility] Comment on above: Order Comment: Waive d Testing in the ED is performed under the ED CLIA certificate #[id number]. Result Comment: [email or web address] Performed By: #### L [id number] ####[facility] ([facility])[address] [place] [address] BASIC METABOLIC PANELon 08-21 Anion gap [Moles/Vol] 8 mmol/L Normal 7-20 [facility] Comment on above: Performed By: #### L [id number] ####[facility] ([facility])[address] [place] [address] Calcium [Mass/Vol] 9.9 mg/dL Normal 8.6-10.3 [facility] Comment on above: Performed By: #### L [id number] ####[facility] ([facility])[address] [place] [address] Chloride [Moles/Vol] 98 mmol/L Normal 98-107 [facility] Comment on above: Performed By: #### L [id number] ####[facility] ([facility])[address] [place] [address] CO2 [Moles/Vol] 33 mmol/L High 21-31 [facility] Comment on above: Performed By: #### L [id number] ####[facility] ([facility])[address] [place] [address] Creatinine [Mass/Vol] 0.90 mg/dL Normal 0.70-1.30 [facility] Comment on above: Performed By: #### L [id number] ####[facility] ([facility])[address] [place] [address] GLOMERULAR FILTRATION RATE ML/MIN/1.73 SQ M.PREDICTED 94.8 mL/min/1.73m*2 Normal >60.0 [facility] Comment on above: Result Comment: The [facility]???s estimated glomerular filtration rate (eGFR) will [...] of individuals. Performed By: #### L [id number] ####[facility] ([facility])[address] [place] [address] Glucose [Mass/Vol] 142 mg/dL High 70-100 [facility] Comment on above: Performed By: #### L [id number] ####[facility] ([facility])[address] [place] [address] Potassium [Moles/Vol] 4.1 mmol/L Normal 3.5-5.1 [facility] Comment on above: Performed By: #### L [id number] ####[facility] ([facility])[address] [place] [address] Sodium [Moles/Vol] 135 mmol/L Low 136-145 [facility] Comment on above: Performed By: #### L [id number] ####[facility] ([facility])[address] [place] [address] Urea nitrogen [Mass/Vol] 19 mg/dL Normal 7-[address] [facility] Comment on above: Performed By: #### L [id number] ####[facility] ([facility])[address] [place] [address] UREA NITROGEN/CREATININE (MASS RATIO) IN SER/PLAS 21.[address] [facility] Comment on above: Performed By: #### L [id number] ####[facility] ([facility])[address] [place] [address] CBC WITH AUTO DIFFERENTIALon 09-05-2024 Basophils (Bld) [#/Vol] 0.07 10*3/uL Normal 0.00-0.[address] [facility] Comment on above: Performed By: #### L [id number] ####[facility] ([facility])[address] [place] [address] Basophils/100 WBC (Bld) 0.9 % Normal 0.0-1.[address] [facility] Comment on above: Performed By: #### L [id number] ####[facility] ([facility])[address] [place] [address] Eosinophils (Bld) [#/Vol] 0.38 10*3/uL Normal 0.00-0.[address] [facility] Comment on above: Performed By: #### L [id number] ####[facility] ([facility])[address] [place] [address] Eosinophils/100 WBC (Bld) 5.0 % Normal 0.0-6.[address] [facility] Comment on above: Performed By: #### L [id number] ####[facility] ([facility])[address] [place] [address] Erythrocyte distribution width (RBC) [Ratio] 15.2 % High 11.5-15.[address] [facility] Comment on above: Performed By: #### L [id number] ####[facility] ([facility])[address] [place] [address] ERYTHROCYTE MEAN CORPUSCULAR HEMOGLOBIN CONCENTRATION (G/DL) BY AUTOMATED 31.4 g/dL Low 32.0-35.[address] [facility] Comment on above: Performed By: #### L [id number] ####[facility] ([facility])[address] [place] [address] Hematocrit (Bld) [Volume fraction] 47.1 % Normal 39.0-55.[address] [facility] Comment on above: Performed By: #### L [id number] ####[facility] ([facility])[address] [place] [address] Hemoglobin (Bld) [Mass/Vol] 14.8 g/dL Normal 13.0-17.[address] [facility] Comment on above: Performed By: #### L [id number] ####[facility] ([facility])[address] [place] [address] Immature granulocytes (Bld) [#/Vol] 0.06 10*3/uL Normal 0.00-0.[address] [facility] Comment on above: Performed By: #### L [id number] ####[facility] ([facility])[address] [place] [address] Immature granulocytes/100 WBC (Bld) 0.8 % Normal 0.0-1.[address] [facility] Comment on above: Performed By: #### L [id number] ####[facility] ([facility])[address] [place] [address] Lymphocytes (Bld) [#/Vol] 1.99 10*3/uL Normal 1.20-4.[address] [facility] Comment on above: Performed By: #### L [id number] ####[facility] ([facility])[address] [place] [address] Lymphocytes/100 WBC (Bld) 26.0 % Normal 20.0-45.[address] [facility] Comment on above: Performed By: #### L [id number] ####[facility] ([facility])[address] [place] [address] MCH (RBC) [Entitic mass] 28.8 pg Normal 27.0-33.[address] [facility] Comment on above: Performed By: #### L [id number] ####[facility] ([facility])[address] [place] [address] MCV (RBC) [Entitic vol] 91.6 fL Normal 82.0-98.[address] [facility] Comment on above: Performed By: #### L [id number] ####[facility] ([facility])[address] [place] [address] Monocytes (Bld) [#/Vol] 0.77 10*3/uL Normal 0.10-1.[address] [facility] Comment on above: Performed By: #### L [id number] ####[facility] ([facility])[address] [place] [address] Monocytes/100 WBC (Bld) 10.1 % Normal 5.0-12.[address] [facility] Comment on above: Performed By: #### L [id number] ####[facility] ([facility])[address] [place] [address] Neutrophils (Bld) [#/Vol] 4.39 10*3/uL Normal 1.60-7.[address] [facility] Comment on above: Performed By: #### L [id number] ####[facility] ([facility])[address] [place] [address] Neutrophils/100 WBC (Bld) 57.2 % Normal 40.0-72.[address] [facility] Comment on above: Performed By: #### L [id number] ####[facility] ([facility])[address] [place] [address] NRBC (PER 100 WBCS) BY AUTOMATED COUNT 0.0 % Normal [address] [facility] Comment on above: Performed By: #### L [id number] ####[facility] ([facility])[address] [place] [address] PLATELETS (10*3/UL) IN BLOOD AUTOMATED COUNT 274 10*3/uL Normal 150-[address] [facility] Comment on above: Performed By: #### L [id number] ####[facility] ([facility])[address] [place] [address] RBC (Bld) [#/Vol] 5.14 10*6/uL Normal 4.20-5.70 [facility] Comment on above: Performed By: #### L [id number] ####[facility] ([facility])[address] [place] [address] WBC (Bld) [#/Vol] 7.66 10*3/uL Normal 4.00-10.60 [facility] Comment on above: Performed By: #### L [id number] ####[facility] ([facility])[address] [place] [address] MAGNESIUMon 09-05-2024 Magnesium [Mass/Vol] 1.6 mg/dL Low 1.9-2.7 [facility] Comment on above: Performed By: #### L [id number] ####[facility] ([facility])[address] [place] [address] PHOSPHORUSon 09-05-2024 Magnesium [Mass/Vol] 2.8 mg/dL Normal 2.5-5.0 [facility] Comment on above: Performed By: #### L [id number] ####[facility] ([facility])[address] [place] [address] POCT GLUCOSE METER UNSOLICIT ED RESULTSon 09-05-2024 Glucose [Mass/Vol] 221 mg/dL High 70-105 [facility] Comment on above: Order Comment: Waive d Testing in the ED is performed under the ED CLIA certificate #[id number]. Result Comment: [email or web address] kol Performed By: #### L [id number] ####[facility] ([facility])[address] [place] [address] Glucose [Mass/Vol] 204 mg/dL High 70-105 [facility] Comment on above: Order Comment: Waive d Testing in the ED is performed under the ED CLIA certificate #[id number]. Result Comment: [email or web address] Performed By: #### L [id number] ####[facility] ([facility])[address] [place] [address] Glucose [Mass/Vol] 222 mg/dL High 70-105 [facility] Comment on above: Order Comment: Waive d Testing in the ED is performed under the ED CLIA certificate #[id number]. Result Comment: [email or web address] Performed By: #### L [id number] ####[facility] ([facility])[address] [place] [address] Glucose [Mass/Vol] 141 mg/dL High 70-105 [facility] Comment on above: Order Comment: Waive d Testing in the ED is performed under the ED CLIA certificate #[id number]. Result Comment: [email or web address] Performed By: #### L [id number] ####[facility] ([facility])[address] [place] [address] 30on 09-04-[address] [facility] BASIC METABOLIC PANELon 08-21 Anion gap [Moles/Vol] 7 mmol/L Normal 7-20 [facility] Comment on above: Performed By: #### L [id number] ####[facility] ([facility])[address] [place] [address] Calcium [Mass/Vol] 9.6 mg/dL Normal 8.6-10.3 [facility] Comment on above: Performed By: #### L [id number] ####[facility] ([facility])[address] [place] [address] Chloride [Moles/Vol] 98 mmol/L Normal 98-107 [facility] Comment on above: Performed By: #### L [id number] ####[facility] ([facility])[address] [place] [address] CO2 [Moles/Vol] 35 mmol/L High 21-31 [facility] Comment on above: Performed By: #### L [id number] ####[facility] ([facility])[address] [place] [address] Creatinine [Mass/Vol] 0.88 mg/dL Normal 0.70-1.30 [facility] Comment on above: Performed By: #### L [id number] ####[facility] ([facility])[address] [place] [address] GLOMERULAR FILTRATION RATE ML/MIN/1.73 SQ M.PREDICTED 95.4 mL/min/1.73m*2 Normal >60.0 [facility] Comment on above: Result Comment: The [facility]???s estimated glomerular filtration rate (eGFR) will [...] of individuals. Performed By: #### L [id number] ####[facility] ([facility])[address] [place] [address] Glucose [Mass/Vol] 155 mg/dL High 70-100 [facility] Comment on above: Performed By: #### L [id number] ####[facility] ([facility])[address] [place] [address] Potassium [Moles/Vol] 4.3 mmol/L Normal 3.5-5.1 [facility] Comment on above: Performed By: #### L [id number] ####[facility] ([facility])[address] [place] [address] Sodium [Moles/Vol] 136 mmol/L Normal 136-145 [facility] Comment on above: Performed By: #### L [id number] ####[facility] ([facility])[address] [place] [address] Urea nitrogen [Mass/Vol] 22 mg/dL Normal 7-[address] [facility] Comment on above: Performed By: #### L [id number] ####[facility] ([facility])[address] [address] UREA NITROGEN/CREATININE (MASS RATIO) IN SER/PLAS 25.[address] [facility] Comment on above: Performed By: #### L [id number] ####[facility] ([facility])[address] [address] CBC WITH AUTO DIFFERENTIALon 09-04-2024 Basophils (Bld) [#/Vol] 0.06 10*3/uL Normal 0.00-0.[address] [facility] Comment on above: Performed By: #### L [id number] ####[facility] ([facility])[address] [address] Basophils/100 WBC (Bld) 1.0 % Normal 0.0-1.[address] [facility] Comment on above: Performed By: #### L [id number] ####[facility] ([facility])[address] [address] Eosinophils (Bld) [#/Vol] 0.38 10*3/uL Normal 0.00-0.[address] [facility] Comment on above: Performed By: #### L [id number] ####[facility] ([facility])[address] [address] Eosinophils/100 WBC (Bld) 6.1 % High 0.0-6.[address] [facility] Comment on above: Performed By: #### L [id number] ####[facility] ([facility])[address] [place] [address] Erythrocyte distribution width (RBC) [Ratio] 15.2 % High 11.5-15.[address] [facility] Comment on above: Performed By: #### L [id number] ####[facility] ([facility])[address] [place] [address] ERYTHROCYTE MEAN CORPUSCULAR HEMOGLOBIN CONCENTRATION (G/DL) BY AUTOMATED 30.6 g/dL Low 32.0-35.[address] [facility] Comment on above: Performed By: #### L [id number] ####[facility] ([facility])[address] [place] [address] Hematocrit (Bld) [Volume fraction] 48.4 % Normal 39.0-55.[address] [facility] Comment on above: Performed By: #### L [id number] ####[facility] ([facility])[address] [place] [address] Hemoglobin (Bld) [Mass/Vol] 14.8 g/dL Normal 13.0-17.[address] [facility] Comment on above: Performed By: #### L [id number] ####[facility] ([facility])[address] [place] [address] Immature granulocytes (Bld) [#/Vol] 0.04 10*3/uL Normal 0.00-0.[address] [facility] Comment on above: Performed By: #### L [id number] ####[facility] ([facility])[address] [place] [address] Immature granulocytes/100 WBC (Bld) 0.6 % Normal 0.0-1.[address] [facility] Comment on above: Performed By: #### L [id number] ####[facility] ([facility])[address] [place] [address] Lymphocytes (Bld) [#/Vol] 1.68 10*3/uL Normal 1.20-4.[address] [facility] Comment on above: Performed By: #### L [id number] ####[facility] ([facility])[address] [place] [address] Lymphocytes/100 WBC (Bld) 27.1 % Normal 20.0-45.[address] [facility] Comment on above: Performed By: #### L [id number] ####[facility] ([facility])[address] [place] [address] MCH (RBC) [Entitic mass] 28.6 pg Normal 27.0-33.[address] [facility] Comment on above: Performed By: #### L [id number] ####[facility] ([facility])[address] [place] [address] MCV (RBC) [Entitic vol] 93.6 fL Normal 82.0-98.[address] [facility] Comment on above: Performed By: #### L [id number] ####[facility] ([facility])[address] [place] [address] Monocytes (Bld) [#/Vol] 0.74 10*3/uL Normal 0.10-1.[address] [facility] Comment on above: Performed By: #### L [id number] ####[facility] ([facility])[address] [place] [address] Monocytes/100 WBC (Bld) 11.9 % Normal 5.0-12.[address] [facility] Comment on above: Performed By: #### L [id number] ####[facility] ([facility])[address] [place] [address] Neutrophils (Bld) [#/Vol] 3.31 10*3/uL Normal 1.60-7.[address] [facility] Comment on above: Performed By: #### L [id number] ####[facility] ([facility])[address] [place] [address] Neutrophils/100 WBC (Bld) 53.3 % Normal 40.0-72.[address] [facility] Comment on above: Performed By: #### L [id number] ####[facility] ([facility] [place] [address] NRBC (PER 100 WBCS) BY AUTOMATED COUNT 0.0 % Normal [address] [facility] Comment on above: Performed By: #### L [id number] ####[facility] ([facility] [place] [address] PLATELETS (10*3/UL) IN BLOOD AUTOMATED COUNT 254 10*3/uL Normal 150-[address] [facility] Comment on above: Performed By: #### L [id number] ####[facility] ([facility])[address] [place] [address] RBC (Bld) [#/Vol] 5.17 10*6/uL Normal 4.20-5.70 [facility] Comment on above: Performed By: #### L [id number] ####[facility] ([facility])[address] [place] [address] WBC (Bld) [#/Vol] 6.21 10*3/uL Normal 4.00-10.60 [facility] Comment on above: Performed By: #### L [id number] ####[facility] ([facility])[address] [place] [address] POCT GLUCOSE METER UNSOLICIT ED RESULTSon 09-04-2024 Glucose [Mass/Vol] 219 mg/dL High 70-105 [facility] Comment on above: Order Comment: Waive d Testing in the ED is performed under the ED CLIA certificate #[id number]. Result Comment: [email or web address] Performed By: #### L [id number] ####[facility] ([facility])[address] [place] [address] Glucose [Mass/Vol] 156 mg/dL High 70-105 [facility] Comment on above: Order Comment: Waive d Testing in the ED is performed under the ED CLIA certificate #[id number]. Result Comment: [email or web address] Performed By: #### L [id number] ####[facility] ([facility])[address] [place] [address] Glucose [Mass/Vol] 190 mg/dL High 70-105 [facility] Comment on above: Order Comment: Waive d Testing in the ED is performed under the ED CLIA certificate #[id number]. Result Comment: [email or web address] Performed By: #### L [id number] ####[facility] ([facility])[address] [place] [address] Glucose [Mass/Vol] 149 mg/dL High 70-105 [facility] Comment on above: Order Comment: Waive d Testing in the ED is performed under the ED CLIA certificate #[id number]. Result Comment: [email or web address] Performed By: #### L [id number] ####[facility] ([facility])[address] [place] [address] 30on 09-03-[address] [facility] BASIC METABOLIC PANELon 08-21 Anion gap [Moles/Vol] 11 mmol/L Normal 7-20 [facility] Comment on above: Performed By: #### L [id number] ####[facility] ([facility]AK[facility])[address] [place] [address] Calcium [Mass/Vol] 9.7 mg/dL Normal 8.6-10.3 [facility] Comment on above: Performed By: #### L [id number] ####[facility] (BEAKER)[address] [place] [address] Chloride [Moles/Vol] 96 mmol/L Low 98-107 [facility] Comment on above: Performed By: #### L [id number] ####[facility] (BEAKER)[address] [place] [address] CO2 [Moles/Vol] 33 mmol/L High 21-31 [facility] Comment on above: Performed By: #### L [id number] ####[facility] (BEAKER)[address] [place] [address] Creatinine [Mass/Vol] 0.87 mg/dL Normal 0.70-1.30 [facility] Comment on above: Performed By: #### L [id number] ####[facility] (BEAKER)[address] [place] [address] GLOMERULAR FILTRATION RATE ML/MIN/1.73 SQ M.PREDICTED 95.8 mL/min/1.73m*2 Normal >60.0 [place] [facility] Comment on above: Result Comment: The [facility]???s estimated glomerular filtration rate (eGFR) will [...] of individuals. Performed By: #### L [id number] ####[facility] ([facility])[address] [place] [address] Glucose [Mass/Vol] 161 mg/dL High 70-100 [facility] Comment on above: Performed By: #### L [id number] ####[facility] ([facility])[address] [place] [address] Potassium [Moles/Vol] 4.2 mmol/L Normal 3.5-5.1 [facility] Comment on above: Performed By: #### L [id number] ####[facility] ([facility])[address] [place] [address] Sodium [Moles/Vol] 136 mmol/L Normal 136-145 [facility] Comment on above: Performed By: #### L [id number] ####[facility] ([facility])[address] [place] [address] Urea nitrogen [Mass/Vol] 23 mg/dL Normal 7-[address] [facility] Comment on above: Performed By: #### L [id number] ####[facility] ([facility])[address] [place] [address] UREA NITROGEN/CREATININE (MASS RATIO) IN SER/PLAS 26.[address] [facility] Comment on above: Performed By: #### L [id number] ####[facility] ([facility])[address] [place] [address] CBC WITH AUTO DIFFERENTIALon 09-03-2024 Basophils (Bld) [#/Vol] 0.07 10*3/uL Normal 0.00-0.[address] [facility] Comment on above: Performed By: #### L [id number] ####[facility] ([facility])[address] [place] [address] Basophils/100 WBC (Bld) 0.8 % Normal 0.0-1.[address] [facility] Comment on above: Performed By: #### L [id number] ####[facility] ([facility])[address] [place] [address] Eosinophils (Bld) [#/Vol] 0.40 10*3/uL Normal 0.00-0.[address] [facility] Comment on above: Performed By: #### L [id number] ####[facility] ([facility])[address] [place] [address] Eosinophils/100 WBC (Bld) 4.8 % Normal 0.0-6.[address] [facility] Comment on above: Performed By: #### L [id number] ####[facility] ([facility])[address] [place] [address] Erythrocyte distribution width (RBC) [Ratio] 15.3 % High 11.5-15.[address] [facility] Comment on above: Performed By: #### L [id number] ####[facility] ([facility])[address] [place] [address] ERYTHROCYTE MEAN CORPUSCULAR HEMOGLOBIN CONCENTRATION (G/DL) BY AUTOMATED 31.8 g/dL Low 32.0-35.[address] [facility] Comment on above: Performed By: #### L [id number] ####[facility] ([facility])[address] [place] [address] Hematocrit (Bld) [Volume fraction] 46.8 % Normal 39.0-55.[address] [facility] Comment on above: Performed By: #### L [id number] ####[facility] ([facility])[address] [place] [address] Hemoglobin (Bld) [Mass/Vol] 14.9 g/dL Normal 13.0-17.[address] [facility] Comment on above: Performed By: #### L [id number] ####[facility] ([facility])[address] [place] [address] Immature granulocytes (Bld) [#/Vol] 0.05 10*3/uL Normal 0.00-0.[address] [facility] Comment on above: Performed By: #### L [id number] ####[facility] ([facility])[address] [place] [address] Immature granulocytes/100 WBC (Bld) 0.6 % Normal 0.0-1.[address] [facility] Comment on above: Performed By: #### L [id number] ####[facility] ([facility])[address] [place] [address] Lymphocytes (Bld) [#/Vol] 1.73 10*3/uL Normal 1.20-4.[address] [facility] Comment on above: Performed By: #### L [id number] ####[facility] ([facility])[address] [place] [address] Lymphocytes/100 WBC (Bld) 20.9 % Normal 20.0-45.[address] [facility] Comment on above: Performed By: #### L [id number] ####[facility] ([facility])[address] [place] [address] MCH (RBC) [Entitic mass] 29.3 pg Normal 27.0-33.[address] [facility] Comment on above: Performed By: #### L [id number] ####[facility] ([facility])[address] [place] [address] MCV (RBC) [Entitic vol] 91.9 fL Normal 82.0-98.[address] [facility] Comment on above: Performed By: #### L [id number] ####[facility] ([facility])[address] [address] Monocytes (Bld) [#/Vol] 0.96 10*3/uL Normal 0.10-1.[address] [facility] Comment on above: Performed By: #### L [id number] ####[facility] ([facility])[address] [place] [address] Monocytes/100 WBC (Bld) 11.6 % Normal 5.0-12.[address] [facility] Comment on above: Performed By: #### L [id number] ####[facility] ([facility])[address] [place] [address] Neutrophils (Bld) [#/Vol] 5.06 10*3/uL Normal 1.60-7.[address] [facility] Comment on above: Performed By: #### L [id number] ####[facility] ([facility])[address] [place] [address] Neutrophils/100 WBC (Bld) 61.3 % Normal 40.0-72.[address] [facility] Comment on above: Performed By: #### L [id number] ####[facility] ([facility])[address] [address] NRBC (PER 100 WBCS) BY AUTOMATED COUNT 0.0 % Normal [address] [facility] Comment on above: Performed By: #### L [id number] ####[facility] ([facility])[address] [place] [address] PLATELETS (10*3/UL) IN BLOOD AUTOMATED COUNT 264 10*3/uL Normal 150-[address] [facility] Comment on above: Performed By: #### L [id number] ####[facility] ([facility])[address] [address] RBC (Bld) [#/Vol] 5.09 10*6/uL Normal 4.20-5.70 [facility] Comment on above: Performed By: #### L [id number] ####[facility] ([facility])[address] [address] WBC (Bld) [#/Vol] 8.27 10*3/uL Normal 4.00-10.60 [facility] Comment on above: Performed By: #### L [id number] ####[facility] ([facility])[address] [place] [address] MAGNESIUMon 09-03-2024 Magnesium [Mass/Vol] 1.6 mg/dL Low 1.9-2.7 [facility] Comment on above: Performed By: #### L [id number] ####[facility] ([facility])[address] [place] [address] PHOSPHORUSon 09-03-2024 Magnesium [Mass/Vol] 3.3 mg/dL Normal 2.5-5.0 [facility] Comment on above: Performed By: #### L [id number] ####[facility] ([facility])[address] [place] [address] POCT GLUCOSE METER UNSOLICIT ED RESULTSon 09-03-2024 Glucose [Mass/Vol] 168 mg/dL High 70-105 [facility] Comment on above: Order Comment: Waive d Testing in the ED is performed under the ED CLIA certificate #[id number]. Result Comment: [email or web address] Performed By: #### L [id number] ####[facility] ([facility])[address] [place] [address] Glucose [Mass/Vol] 184 mg/dL High 70-105 [facility] Comment on above: Order Comment: Waive d Testing in the ED is performed under the ED CLIA certificate #[id number]. Result Comment: [email or web address] Performed By: #### L [id number] ####[facility] ([facility])[address] [place] [address] Glucose [Mass/Vol] 205 mg/dL High 70-105 [facility] Comment on above: Order Comment: Waive d Testing in the ED is performed under the ED CLIA certificate #[id number]. Result Comment: [email or web address] Performed By: #### L [id number] ####[facility] ([facility])[address] [place] [address] Glucose [Mass/Vol] 145 mg/dL High 70-105 [facility] Comment on above: Order Comment: Waive d Testing in the ED is performed under the ED CLIA certificate #[id number]. Result Comment: [email or web address] Performed By: #### L [id number] ####[facility] ([facility])[address] [place] [address] 30on 09-02-[address] [facility] BASIC METABOLIC PANELon 08-21 Anion gap [Moles/Vol] 8 mmol/L Normal 7-20 [facility] Comment on above: Performed By: #### L [id number] ####[facility] ([facility])[address] [address] Calcium [Mass/Vol] 9.5 mg/dL Normal 8.6-10.3 [facility] Comment on above: Performed By: #### L [id number] ####[facility] ([facility])[address] [place] [address] Chloride [Moles/Vol] 99 mmol/L Normal 98-107 [facility] Comment on above: Performed By: #### L [id number] ####[facility] ([facility])[address] [place] [address] CO2 [Moles/Vol] 37 mmol/L High 21-31 [facility] Comment on above: Performed By: #### L [id number] ####[facility] ([facility])[address] [place] [address] Creatinine [Mass/Vol] 0.77 mg/dL Normal 0.70-1.30 [facility] Comment on above: Performed By: #### L [id number] ####[facility] [place] [address] GLOMERULAR FILTRATION RATE ML/MIN/1.73 SQ M.PREDICTED 99.4 mL/min/1.73m*2 Normal >60.0 [facility] Comment on above: Result Comment: The [facility]???s estimated glomerular filtration rate (eGFR) will [...] of individuals. Performed By: #### L [id number] ####[facility] ([facility])[address] [place] [address] Glucose [Mass/Vol] 160 mg/dL High 70-100 [facility] Comment on above: Performed By: #### L [id number] ####[facility] ([facility])[address] [place] [address] Potassium [Moles/Vol] 4.1 mmol/L Normal 3.5-5.1 [facility] Comment on above: Performed By: #### L [id number] ####[facility] ([facility])[address] [place] [address] Sodium [Moles/Vol] 140 mmol/L Normal 136-145 [facility] Comment on above: Performed By: #### L [id number] ####[facility] ([facility])[address] [place] [address] Urea nitrogen [Mass/Vol] 16 mg/dL Normal 7-[address] [facility] Comment on above: Performed By: #### L [id number] ####[facility] ([facility])[address] [place] [address] UREA NITROGEN/CREATININE (MASS RATIO) IN SER/PLAS 20.[address] [facility] Comment on above: Performed By: #### L [id number] ####[facility] ([facility])[address] [place] [address] CBC WITH AUTO DIFFERENTIALon 09-02-2024 Basophils (Bld) [#/Vol] 0.07 10*3/uL Normal 0.00-0.[address] [facility] Comment on above: Performed By: #### L [id number] ####[facility] ([facility])[address] [place] [address] Basophils/100 WBC (Bld) 1.0 % Normal 0.0-1.[address] [facility] Comment on above: Performed By: #### L [id number] ####[facility] ([facility])[address] [place] [address] Eosinophils (Bld) [#/Vol] 0.34 10*3/uL Normal 0.00-0.[address] [facility] Comment on above: Performed By: #### L [id number] ####[facility] ([facility])[address] [place] [address] Eosinophils/100 WBC (Bld) 5.0 % Normal 0.0-6.[address] [facility] Comment on above: Performed By: #### L [id number] ####[facility] ([facility])[address] [place] [address] Erythrocyte distribution width (RBC) [Ratio] 15.1 % High 11.5-15.[address] [facility] Comment on above: Performed By: #### L [id number] ####[facility] ([facility])[address] [place] [address] ERYTHROCYTE MEAN CORPUSCULAR HEMOGLOBIN CONCENTRATION (G/DL) BY AUTOMATED 31.0 g/dL Low 32.0-35.[address] [facility] Comment on above: Performed By: #### L [id number] ####[facility] ([facility])[address] [place] [address] Hematocrit (Bld) [Volume fraction] 46.2 % Normal 39.0-55.[address] [facility] Comment on above: Performed By: #### L [id number] ####[facility] ([facility])[address] [place] [address] Hemoglobin (Bld) [Mass/Vol] 14.3 g/dL Normal 13.0-17.[address] [facility] Comment on above: Performed By: #### L [id number] ####[facility] ([facility])[address] [place] [address] Immature granulocytes (Bld) [#/Vol] 0.04 10*3/uL Normal 0.00-0.[address] [facility] Comment on above: Performed By: #### L [id number] ####[facility] ([facility])[address] [place] [address] Immature granulocytes/100 WBC (Bld) 0.6 % Normal 0.0-1.[address] [facility] Comment on above: Performed By: #### L [id number] ####[facility] ([facility])[address] [place] [address] Lymphocytes (Bld) [#/Vol] 1.60 10*3/uL Normal 1.20-4.[address] [facility] Comment on above: Performed By: #### L [id number] ####[facility] ([facility])[address] [place] [address] Lymphocytes/100 WBC (Bld) 23.7 % Normal 20.0-45.[address] [facility] Comment on above: Performed By: #### L [id number] ####[facility] ([facility])[address] [place] [address] MCH (RBC) [Entitic mass] 28.8 pg Normal 27.0-33.[address] [facility] Comment on above: Performed By: #### L [id number] ####[facility] ([facility])[address] [place] [address] MCV (RBC) [Entitic vol] 93.1 fL Normal 82.0-98.[address] [facility] Comment on above: Performed By: #### L [id number] ####[facility] ([facility])[address] [place] [address] Monocytes (Bld) [#/Vol] 0.86 10*3/uL Normal 0.10-1.[address] [facility] Comment on above: Performed By: #### L [id number] ####[facility] ([facility])[address] [place] [address] Monocytes/100 WBC (Bld) 12.8 % High 5.0-12.[address] [facility] Comment on above: Performed By: #### L [id number] ####[facility] ([facility])[address] [place] [address] Neutrophils (Bld) [#/Vol] 3.83 10*3/uL Normal 1.60-7.[address] [facility] Comment on above: Performed By: #### L [id number] ####[facility] ([facility])[address] [address] Neutrophils/100 WBC (Bld) 56.9 % Normal 40.0-72.[address] [facility] Comment on above: Performed By: #### L [id number] ####[facility] ([facility])[address] [address] NRBC (PER 100 WBCS) BY AUTOMATED COUNT 0.0 % Normal [address] [facility] Comment on above: Performed By: #### L [id number] ####[facility] ([facility])[address] [address] PLATELETS (10*3/UL) IN BLOOD AUTOMATED COUNT 264 10*3/uL Normal 150-[address] [facility] Comment on above: Performed By: #### L [id number] ####[facility] ([facility])[address] [address] RBC (Bld) [#/Vol] 4.96 10*6/uL Normal 4.20-5.70 [facility] Comment on above: Performed By: #### L [id number] ####[facility] ([facility])[address] [address] WBC (Bld) [#/Vol] 6.74 10*3/uL Normal 4.00-10.60 [facility] Comment on above: Performed By: #### L [id number] ####[facility] ([facility])[address] [place] [address] NURSNOTEon 09-02-2024 NURSNOTE Normal [facility] NURSNOTE Normal [facility] PHOSPHORUSon 09-02-2024 Magnesium [Mass/Vol] 3.1 mg/dL Normal 2.5-5.0 [facility] Comment on above: Performed By: #### L [id number] ####[facility] ([facility])[address] [place] [address] POCT GLUCOSE METER UNSOLICIT ED RESULTSon 09-02-2024 Glucose [Mass/Vol] 289 mg/dL High 70-105 [facility] Comment on above: Order Comment: Waive d Testing in the ED is performed under the ED CLIA certificate #[id number]. Result Comment: [email or web address] Performed By: #### L [id number] ####[facility] ([facility])[address] [place] [address] Glucose [Mass/Vol] 260 mg/dL High 70-105 [facility] Comment on above: Order Comment: Waive d Testing in the ED is performed under the ED CLIA certificate #[id number]. Result Comment: [email or web address] cad Performed By: #### L [id number] ####[facility] ([facility])[address] [place] [address] Glucose [Mass/Vol] 204 mg/dL High 70-105 [facility] Comment on above: Order Comment: Waive d Testing in the ED is performed under the ED CLIA certificate #[id number]. Result Comment: [email or web address] Performed By: #### L [id number] ####[facility] ([facility])[address] [place] [address] Glucose [Mass/Vol] 166 mg/dL High 70-105 [facility] Comment on above: Order Comment: Waive d Testing in the ED is performed under the ED CLIA certificate #[id number]. Result Comment: [email or web address] cad Performed By: #### L [id number] ####[facility] ([facility])[address] [place] [address] 30on 09-01-2024 [address] [facility] BASIC METABOLIC PANELon 08-21 Anion gap [Moles/Vol] 7 mmol/L Normal 7-20 [facility] Comment on above: Performed By: #### L [id number] ####[facility] ([facility])[address] [place] [address] Calcium [Mass/Vol] 9.1 mg/dL Normal 8.6-10.3 [facility] Comment on above: Performed By: #### L [id number] ####[facility] ([facility])[address] [place] [address] Chloride [Moles/Vol] 98 mmol/L Normal 98-107 [facility] Comment on above: Performed By: #### L [id number] ####[facility] ([facility])[address] [place] [address] CO2 [Moles/Vol] 36 mmol/L High 21-31 [facility] Comment on above: Performed By: #### L [id number] ####[facility] ([facility])[address] [place] [address] Creatinine [Mass/Vol] 0.84 mg/dL Normal 0.70-1.30 [facility] Comment on above: Performed By: #### L [id number] ####[facility] ([facility])[address] [place] [address] GLOMERULAR FILTRATION RATE ML/MIN/1.73 SQ M.PREDICTED 96.8 mL/min/1.73m*2 Normal >60.0 [facility] Comment on above: Result Comment: The [facility]???s estimated glomerular filtration rate (eGFR) will [...] of individuals. Performed By: #### L [id number] ####[facility] ([facility])[address] [place] [address] Glucose [Mass/Vol] 190 mg/dL High 70-100 [facility] Comment on above: Performed By: #### L [id number] ####[facility] [place] [address] Potassium [Moles/Vol] 4.1 mmol/L Normal 3.5-5.1 [facility] Comment on above: Performed By: #### L [id number] ####[facility] [place] [address] Sodium [Moles/Vol] 137 mmol/L Normal 136-145 [facility] Comment on above: Performed By: #### L [id number] ####[facility] [place] [address] Urea nitrogen [Mass/Vol] 18 mg/dL Normal 7-[address] [facility] Comment on above: Performed By: #### L [id number] ####[facility] ([facility])[address] [place] [address] UREA NITROGEN/CREATININE (MASS RATIO) IN SER/PLAS 21.[address] [facility] Comment on above: Performed By: #### L [id number] ####[facility] ([facility])[address] [place] [address] CBC WITH AUTO DIFFERENTIALon 09-01-2024 Basophils (Bld) [#/Vol] 0.07 10*3/uL Normal 0.00-0.[address] [facility] Comment on above: Performed By: #### L [id number] ####[facility] [place] [address] Basophils/100 WBC (Bld) 1.0 % Normal 0.0-1.[address] [facility] Comment on above: Performed By: #### L [id number] ####[facility] [place] [address] Eosinophils (Bld) [#/Vol] 0.37 10*3/uL Normal 0.00-0.[address] [facility] Comment on above: Performed By: #### L [id number] ####[facility] [place] [address] Eosinophils/100 WBC (Bld) 5.1 % Normal 0.0-6.[address] [facility] Comment on above: Performed By: #### L [id number] ####[facility] ([facility])[address] [place] [address] Erythrocyte distribution width (RBC) [Ratio] 15.1 % High 11.5-15.[address] [facility] Comment on above: Performed By: #### L [id number] ####[facility] ([facility])[address] [place] [address] ERYTHROCYTE MEAN CORPUSCULAR HEMOGLOBIN CONCENTRATION (G/DL) BY AUTOMATED 31.3 g/dL Low 32.0-35.[address] [facility] Comment on above: Performed By: #### L [id number] ####[facility] [place] [address] Hematocrit (Bld) [Volume fraction] 46.3 % Normal 39.0-55.[address] [facility] Comment on above: Performed By: #### L [id number] ####[facility] [place] [address] Hemoglobin (Bld) [Mass/Vol] 14.5 g/dL Normal 13.0-17.[address] [facility] Comment on above: Performed By: #### L [id number] ####[facility] ([facility])[address] [place] [address] Immature granulocytes (Bld) [#/Vol] 0.04 10*3/uL Normal 0.00-0.[address] [facility] Comment on above: Performed By: #### L [id number] ####[facility] ([facility])[address] [place] [address] Immature granulocytes/100 WBC (Bld) 0.6 % Normal 0.0-1.[address] [facility] Comment on above: Performed By: #### L [id number] ####[facility] ([facility])[address] [place] [address] Lymphocytes (Bld) [#/Vol] 1.46 10*3/uL Normal 1.20-4.[address] [facility] Comment on above: Performed By: #### L [id number] ####[facility] ([facility])[address] [place] [address] Lymphocytes/100 WBC (Bld) 20.2 % Normal 20.0-45.[address] [facility] Comment on above: Performed By: #### L [id number] ####[facility] ([facility])[address] [place] [address] MCH (RBC) [Entitic mass] 29.1 pg Normal 27.0-33.[address] [facility] Comment on above: Performed By: #### L [id number] ####[facility] ([facility])[address] [place] [address] MCV (RBC) [Entitic vol] 92.8 fL Normal 82.0-98.[address] [facility] Comment on above: Performed By: #### L [id number] ####[facility] ([facility])[address] [place] [address] Monocytes (Bld) [#/Vol] 0.85 10*3/uL Normal 0.10-1.[address] [facility] Comment on above: Performed By: #### L [id number] ####[facility] LAB ([facility])[address] [place] [address] Monocytes/100 WBC (Bld) 11.8 % Normal 5.0-12.[address] [facility] Comment on above: Performed By: #### L [id number] ####[facility] ([facility] [place] [address] Neutrophils (Bld) [#/Vol] 4.43 10*3/uL Normal 1.60-7.[address] [facility] Comment on above: Performed By: #### L [id number] ####[facility] ([facility])[address] [place] [address] Neutrophils/100 WBC (Bld) 61.3 % Normal 40.0-72.[address] [facility] Comment on above: Performed By: #### L [id number] ####[facility] ([facility])[address] [place] [address] NRBC (PER 100 WBCS) BY AUTOMATED COUNT 0.0 % Normal [address] [facility] Comment on above: Performed By: #### L [id number] ####[facility] ([facility])[address] [place] [address] PLATELETS (10*3/UL) IN BLOOD AUTOMATED COUNT 268 10*3/uL Normal 150-[address] [facility] Comment on above: Performed By: #### L [id number] ####[facility] ([facility])[address] [place] [address] RBC (Bld) [#/Vol] 4.99 10*6/uL Normal 4.20-5.70 [facility] Comment on above: Performed By: #### L [id number] ####[facility] ([facility])[address] [place] [address] WBC (Bld) [#/Vol] 7.22 10*3/uL Normal 4.00-10.60 [facility] Comment on above: Performed By: #### L [id number] ####[facility] ([facility])[address] [place] [address] MAGNESIUMon 09-01-2024 Magnesium [Mass/Vol] 1.8 mg/dL Low 1.9-2.7 [facility] Comment on above: Performed By: #### L [id number] ####[facility] ([facility])[address] [place] [address] POCT GLUCOSE METER UNSOLICIT ED RESULTSon 09-01-2024 Glucose [Mass/Vol] 225 mg/dL High 70-105 [facility] Comment on above: Order Comment: Waive d Testing in the ED is performed under the ED CLIA certificate #[id number]. Result Comment: [email or web address] Performed By: #### L [id number] ####[facility] ([facility])[address] [place] [address] Glucose [Mass/Vol] 181 mg/dL High 70-105 [facility] Comment on above: Order Comment: Waive d Testing in the ED is performed under the ED CLIA certificate #[id number]. Result Comment: [email or web address] Performed By: #### L [id number] ####[facility] ([facility])[address] [place] [address] Glucose [Mass/Vol] 209 mg/dL High 70-105 [facility] Comment on above: Order Comment: Waive d Testing in the ED is performed under the ED CLIA certificate #[id number]. Result Comment: [email or web address] Performed By: #### L [id number] ####[facility] ([facility])[address] [place] [address] Glucose [Mass/Vol] 181 mg/dL High 70-105 [facility] Comment on above: Order Comment: Waive d Testing in the ED is performed under the ED CLIA certificate #[id number]. Result Comment: [email or web address] Performed By: #### L [id number] ####[facility] ([facility])[address] [place] [address] 30on 08-31-[address] [facility] [address] [facility] BASIC METABOLIC PANELon 08-21 Anion gap [Moles/Vol] 8 mmol/L Normal 7-20 [facility] Comment on above: Performed By: #### L [id number] ####[facility] ([facility])[address] [place] [address] Calcium [Mass/Vol] 9.6 mg/dL Normal 8.6-10.3 [facility] Comment on above: Performed By: #### L [id number] ####[facility] ([facility])[address] [place] [address] Chloride [Moles/Vol] 97 mmol/L Low 98-107 [facility] Comment on above: Performed By: #### L [id number] ####[facility] ([facility])[address] [place] [address] CO2 [Moles/Vol] 35 mmol/L High 21-31 [facility] Comment on above: Performed By: #### L [id number] ####[facility] ([facility])[address] [place] [address] Creatinine [Mass/Vol] 0.85 mg/dL Normal 0.70-1.30 [facility] Comment on above: Performed By: #### L [id number] ####[facility] ([facility])[address] [place] [address] GLOMERULAR FILTRATION RATE ML/MIN/1.73 SQ M.PREDICTED 96.4 mL/min/1.73m*2 Normal >60.0 [facility] Comment on above: Result Comment: The [facility]???s estimated glomerular filtration rate (eGFR) will [...] of individuals. Performed By: #### L [id number] ####[facility] ([facility])[address] [place] [address] Glucose [Mass/Vol] 205 mg/dL High 70-100 [facility] Comment on above: Performed By: #### L [id number] ####[facility] ([facility])[address] [place] [address] Potassium [Moles/Vol] 3.9 mmol/L Normal 3.5-5.1 [facility] Comment on above: Performed By: #### L [id number] ####[facility] ([facility])[address] [place] [address] Sodium [Moles/Vol] 136 mmol/L Normal 136-145 [facility] Comment on above: Performed By: #### L [id number] ####[facility] ([facility])[address] [place] [address] Urea nitrogen [Mass/Vol] 21 mg/dL Normal 7-[address] [facility] Comment on above: Performed By: #### L [id number] ####[facility] ([facility])[address] [place] [address] UREA NITROGEN/CREATININE (MASS RATIO) IN SER/PLAS 24.[address] [facility] Comment on above: Performed By: #### L [id number] ####[facility] ([facility] [place] [address] CBC WITH AUTO DIFFERENTIALon 08-31-2024 Basophils (Bld) [#/Vol] 0.06 10*3/uL Normal 0.00-0.[address] [facility] Comment on above: Performed By: #### L [id number] ####[facility] ([facility])[address] [place] [address] Basophils/100 WBC (Bld) 0.8 % Normal 0.0-1.[address] [facility] Comment on above: Performed By: #### L [id number] ####[facility] ([facility] [place] [address] Eosinophils (Bld) [#/Vol] 0.38 10*3/uL Normal 0.00-0.[address] [facility] Comment on above: Performed By: #### L [id number] ####[facility] ([facility])[address] [place] [address] Eosinophils/100 WBC (Bld) 5.3 % Normal 0.0-6.[address] [facility] Comment on above: Performed By: #### L [id number] ####[facility] ([facility])[address] [place] [address] Erythrocyte distribution width (RBC) [Ratio] 15.2 % High 11.5-15.[address] [facility] Comment on above: Performed By: #### L [id number] ####[facility] ([facility])[address] [place] [address] ERYTHROCYTE MEAN CORPUSCULAR HEMOGLOBIN CONCENTRATION (G/DL) BY AUTOMATED 30.4 g/dL Low 32.0-35.[address] [facility] Comment on above: Performed By: #### L [id number] ####[facility] ([facility])[address] [place] [address] Hematocrit (Bld) [Volume fraction] 48.3 % Normal 39.0-55.[address] [facility] Comment on above: Performed By: #### L [id number] ####[facility] ([facility])[address] [place] [address] Hemoglobin (Bld) [Mass/Vol] 14.7 g/dL Normal 13.0-17.[address] [facility] Comment on above: Performed By: #### L [id number] ####[facility] ([facility])[address] [place] [address] Immature granulocytes (Bld) [#/Vol] 0.06 10*3/uL Normal 0.00-0.[address] [facility] Comment on above: Performed By: #### L [id number] ####[facility] ([facility])[address] [place] [address] Immature granulocytes/100 WBC (Bld) 0.8 % Normal 0.0-1.[address] [facility] Comment on above: Performed By: #### L [id number] ####[facility] ([facility])[address] [place] [address] Lymphocytes (Bld) [#/Vol] 1.17 10*3/uL Low 1.20-4.[address] [facility] Comment on above: Performed By: #### L [id number] ####[facility] ([facility])[address] [place] [address] Lymphocytes/100 WBC (Bld) 16.3 % Low 20.0-45.[address] [facility] Comment on above: Performed By: #### L [id number] ####[facility] ([facility])[address] [place] [address] MCH (RBC) [Entitic mass] 29.0 pg Normal 27.0-33.[address] [facility] Comment on above: Performed By: #### L [id number] ####[facility] ([facility])[address] [place] [address] MCV (RBC) [Entitic vol] 95.3 fL Normal 82.0-98.[address] [facility] Comment on above: Performed By: #### L [id number] ####[facility] ([facility])[address] [place] [address] Monocytes (Bld) [#/Vol] 0.82 10*3/uL Normal 0.10-1.[address] [facility] Comment on above: Performed By: #### L [id number] ####[facility] ([facility])[address] [place] [address] Monocytes/100 WBC (Bld) 11.4 % Normal 5.0-12.[address] [facility] Comment on above: Performed By: #### L [id number] ####[facility] ([facility])[address] [place] [address] Neutrophils (Bld) [#/Vol] 4.70 10*3/uL Normal 1.60-7.[address] [facility] Comment on above: Performed By: #### L [id number] ####[facility] ([facility])[address] [place] [address] Neutrophils/100 WBC (Bld) 65.4 % Normal 40.0-72.[address] [facility] Comment on above: Performed By: #### L [id number] ####[facility] ([facility])[address] [place] [address] NRBC (PER 100 WBCS) BY AUTOMATED COUNT 0.0 % Normal [address] [facility] Comment on above: Performed By: #### L [id number] ####[facility] ([facility])[address] [place] [address] PLATELETS (10*3/UL) IN BLOOD AUTOMATED COUNT 278 10*3/uL Normal 150-[address] [facility] Comment on above: Performed By: #### L [id number] ####[facility] ([facility])[address] [place] [address] RBC (Bld) [#/Vol] 5.07 10*6/uL Normal 4.20-5.70 [facility] Comment on above: Performed By: #### L [id number] ####[facility] ([facility])[address] [place] [address] WBC (Bld) [#/Vol] 7.19 10*3/uL Normal 4.00-10.60 [facility] Comment on above: Performed By: #### L [id number] ####[facility] ([facility])[address] [place] [address] MAGNESIUMon 08-31-2024 Magnesium [Mass/Vol] 1.6 mg/dL Low 1.9-2.7 [facility] Comment on above: Performed By: #### L [id number] ####[facility] ([facility])[address] [place] [address] POCT GLUCOSE METER UNSOLICIT ED RESULTSon 08-31-2024 Glucose [Mass/Vol] 281 mg/dL High 70-105 [facility] Comment on above: Order Comment: Waive d Testing in the ED is performed under the ED CLIA certificate #[id number]. Result Comment: [email or web address] Performed By: #### L [id number] ####[facility] ([facility])[address] [place] [address] Glucose [Mass/Vol] 157 mg/dL High 70-105 [facility] Comment on above: Order Comment: Waive d Testing in the ED is performed under the ED CLIA certificate #[id number]. Result Comment: [email or web address] Performed By: #### L [id number] ####[facility] ([facility])[address] [place] [address] Glucose [Mass/Vol] 212 mg/dL High 70-105 [facility] Comment on above: Order Comment: Waive d Testing in the ED is performed under the ED CLIA certificate #[id number]. Result Comment: [email or web address] Performed By: #### L [id number] ####[facility] ([facility])[address] [place] [address] Glucose [Mass/Vol] 167 mg/dL High 70-105 [facility] Comment on above: Order Comment: Waive d Testing in the ED is performed under the ED CLIA certificate #[id number]. Result Comment: [email or web address] Performed By: #### L [id number] ####[facility] ([facility] [place] [address] 30on 08-30-[address]24 [address] [facility] BASIC METABOLIC PANELon 08-21 Anion gap [Moles/Vol] 10 mmol/L Normal 7-20 [facility] Comment on above: Performed By: #### L [id number] ####[facility] ([facility])[address] [place] [address] Calcium [Mass/Vol] 10.3 mg/dL Normal 8.6-10.3 [facility] Comment on above: Performed By: #### L [id number] ####[facility] ([facility])[address] [place] [address] Chloride [Moles/Vol] 94 mmol/L Low 98-107 [facility] Comment on above: Performed By: #### L [id number] ####[facility] ([facility])[address] [place] [address] CO2 [Moles/Vol] 34 mmol/L High 21-31 [facility] Comment on above: Performed By: #### L [id number] ####[facility] ([facility])[address] [place] [address] Creatinine [Mass/Vol] 0.98 mg/dL Normal 0.70-1.30 [facility] Comment on above: Performed By: #### L [id number] ####[facility] ([facility])[address] [place] [address] GLOMERULAR FILTRATION RATE ML/MIN/1.73 SQ M.PREDICTED 85.6 mL/min/1.73m*2 Normal >60.0 [facility] Comment on above: Result Comment: The [facility]???s estimated glomerular filtration rate (eGFR) will [...] of individuals. Performed By: #### L [id number] ####[facility] ([facility])[address] [place] [address] Glucose [Mass/Vol] 184 mg/dL High 70-100 [facility] Comment on above: Performed By: #### L [id number] ####[facility] ([facility])[address] [place] [address] Potassium [Moles/Vol] 4.1 mmol/L Normal 3.5-5.1 [facility] Comment on above: Performed By: #### L [id number] ####[facility] ([facility])[address] [place] [address] Sodium [Moles/Vol] 134 mmol/L Low 136-145 [facility] Comment on above: Performed By: #### L [id number] ####[facility] ([facility])[address] [place] [address] Urea nitrogen [Mass/Vol] 27 mg/dL High 7-[address] [facility] Comment on above: Performed By: #### L [id number] ####[facility] ([facility])[address] [place] [address] UREA NITROGEN/CREATININE (MASS RATIO) IN SER/PLAS 27.[address] [facility] Comment on above: Performed By: #### L [id number] ####[facility] ([facility] [place] [address] CBC WITH AUTO DIFFERENTIALon 08-30-2024 Basophils (Bld) [#/Vol] 0.09 10*3/uL Normal 0.00-0.[address] [facility] Comment on above: Performed By: #### L [id number] ####[facility] ([facility])[address] [place] [address] Basophils/100 WBC (Bld) 1.0 % Normal 0.0-1.[address] [facility] Comment on above: Performed By: #### L [id number] ####[facility] ([facility])[address] [place] [address] Eosinophils (Bld) [#/Vol] 0.54 10*3/uL High 0.00-0.[address] [facility] Comment on above: Performed By: #### L [id number] ####[facility] ([facility])[address] [place] [address] Eosinophils/100 WBC (Bld) 5.9 % Normal 0.0-6.[address] [facility] Comment on above: Performed By: #### L [id number] ####[facility] ([facility])[address] [place] [address] Erythrocyte distribution width (RBC) [Ratio] 14.9 % Normal 11.5-15.[address] [facility] Comment on above: Performed By: #### L [id number] ####[facility] ([facility])[address] [place] [address] ERYTHROCYTE MEAN CORPUSCULAR HEMOGLOBIN CONCENTRATION (G/DL) BY AUTOMATED 31.0 g/dL Low 32.0-35.[address] [facility] Comment on above: Performed By: #### L [id number] ####[facility] ([facility])[address] [place] [address] Hematocrit (Bld) [Volume fraction] 50.9 % Normal 39.0-55.[address] [facility] Comment on above: Performed By: #### L [id number] ####[facility] ([facility])[address] [place] [address] Hemoglobin (Bld) [Mass/Vol] 15.8 g/dL Normal 13.0-17.[address] [facility] Comment on above: Performed By: #### L [id number] ####[facility] ([facility])[address] [place] [address] Immature granulocytes (Bld) [#/Vol] 0.06 10*3/uL Normal 0.00-0.[address] [facility] Comment on above: Performed By: #### L [id number] ####[facility] ([facility])[address] [place] [address] Immature granulocytes/100 WBC (Bld) 0.7 % Normal 0.0-1.[address] [facility] Comment on above: Performed By: #### L [id number] ####[facility] ([facility])[address] [place] [address] Lymphocytes (Bld) [#/Vol] 1.65 10*3/uL Normal 1.20-4.[address] [facility] Comment on above: Performed By: #### L [id number] ####[facility] ([facility])[address] [place] [address] Lymphocytes/100 WBC (Bld) 17.9 % Low 20.0-45.[address] [facility] Comment on above: Performed By: #### L [id number] ####[facility] ([facility])[address] [place] [address] MCH (RBC) [Entitic mass] 29.2 pg Normal 27.0-33.[address] [facility] Comment on above: Performed By: #### L [id number] ####[facility] ([facility])[address] [place] [address] MCV (RBC) [Entitic vol] 93.9 fL Normal 82.0-98.[address] [facility] Comment on above: Performed By: #### L [id number] ####[facility] ([facility])[address] [place] [address] Monocytes (Bld) [#/Vol] 1.05 10*3/uL High 0.10-1.[address] [facility] Comment on above: Performed By: #### L [id number] ####[facility] ([facility])[address] [place] [address] Monocytes/100 WBC (Bld) 11.4 % Normal 5.0-12.[address] [facility] Comment on above: Performed By: #### L [id number] ####[facility] ([facility])[address] [place] [address] Neutrophils (Bld) [#/Vol] 5.82 10*3/uL Normal 1.60-7.[address] [facility] Comment on above: Performed By: #### L [id number] ####[facility] ([facility])[address] [place] [address] Neutrophils/100 WBC (Bld) 63.1 % Normal 40.0-72.[address] [facility] Comment on above: Performed By: #### L [id number] ####[facility] ([facility])[address] [place] [address] NRBC (PER 100 WBCS) BY AUTOMATED COUNT 0.0 % Normal [address] [facility] Comment on above: Performed By: #### L [id number] ####[facility] ([facility])[address] [place] [address] PLATELETS (10*3/UL) IN BLOOD AUTOMATED COUNT 298 10*3/uL Normal 150-[address] [facility] Comment on above: Performed By: #### L [id number] ####[facility] ([facility])[address] [place] [address] RBC (Bld) [#/Vol] 5.42 10*6/uL Normal 4.20-5.70 [facility] Comment on above: Performed By: #### L [id number] ####[facility] ([facility])[address] [place] [address] WBC (Bld) [#/Vol] 9.21 10*3/uL Normal 4.00-10.60 [facility] Comment on above: Performed By: #### L [id number] ####[facility] ([facility])[address] [place] [address] CONSULTon 08-30-2024 CONSULT Normal [facility] MAGNESIUMon 08-30-2024 Magnesium [Mass/Vol] 1.7 mg/dL Low 1.9-2.7 [facility] Comment on above: Performed By: #### L [id number] ####[facility] ([facility])[address] [place] [address] NURSNOTEon 08-30-2024 NURSNOTE Normal [facility] POCT GLUCOSE METER UNSOLICIT ED RESULTSon 08-30-2024 Glucose [Mass/Vol] 294 mg/dL High 70-105 [facility] Comment on above: Order Comment: Waive d Testing in the ED is performed under the ED CLIA certificate #[id number]. Result Comment: [email or web address] [id number] Value Noted Performed By: #### L [id number] ####[facility] ([facility])[address] [place] [address] Glucose [Mass/Vol] 162 mg/dL High 70-105 [facility] Comment on above: Order Comment: Waive d Testing in the ED is performed under the ED CLIA certificate #[id number]. Result Comment: [email or web address] rbo Performed By: #### L [id number] ####[facility] ([facility])[address] [place] [address] Glucose [Mass/Vol] 193 mg/dL High 70-105 [facility] Comment on above: Order Comment: Waive d Testing in the ED is performed under the ED CLIA certificate #[id number]. Result Comment: [email or web address] rbo Performed By: #### L [id number] ####[facility] ([facility])[address] [place] [address] Glucose [Mass/Vol] 235 mg/dL High 70-105 [facility] Comment on above: Order Comment: Waive d Testing in the ED is performed under the ED CLIA certificate #[id number]. Result Comment: [email or web address] Performed By: #### L [id number] ####[facility] (BE[facility])[address] [place] [address] Glucose [Mass/Vol] 209 mg/dL High 70-105 [facility] Comment on above: Order Comment: Waive d Testing in the ED is performed under the ED CLIA certificate #[id number]. Result Comment: [email or web address] [email or web address] Performed By: #### L [id number] ####[facility] ([facility])[address] [place] [address] BASIC METABOLIC PANELon 02-0 Anion gap [Moles/Vol] 7 mmol/L Normal 7-20 [facility] Comment on above: Performed By: #### L [id number] ####[facility] ([facility])[address] [place] [address] Calcium [Mass/Vol] 10.5 mg/dL High 8.6-10.3 [facility] Comment on above: Performed By: #### L [id number] ####[facility] ([facility])[address] [place] [address] Chloride [Moles/Vol] 93 mmol/L Low 98-107 [facility] Comment on above: Performed By: #### L [id number] ####[facility] ([facility]AKER)[address] [place] [address] CO2 [Moles/Vol] 38 mmol/L High 21-31 [facility] Comment on above: Performed By: #### L [id number] ####[facility] (BEAKER)[address] [place] [address] Creatinine [Mass/Vol] 0.96 mg/dL Normal 0.70-1.30 [facility] Comment on above: Performed By: #### L [id number] ####[facility] (BEAKER)[address] [place] [address] GLOMERULAR FILTRATION RATE ML/MIN/1.73 SQ M.PREDICTED 87.7 mL/min/1.73m*2 Normal >60.0 [facility] Comment on above: Result Comment: [facility]???s estimated glomerular filtration rate (eGFR) will [...] of individuals. Performed By: #### L [id number] ####[facility] ([facility])[address] [place] [address] Glucose [Mass/Vol] 182 mg/dL High 70-100 [facility] Comment on above: Performed By: #### L [id number] ####[facility] ([facility])[address] [place] [address] Potassium [Moles/Vol] 4.1 mmol/L Normal 3.5-5.1 [facility] Comment on above: Performed By: #### L [id number] ####[facility] ([facility])[address] [place] [address] Sodium [Moles/Vol] 134 mmol/L Low 136-145 [facility] Comment on above: Performed By: #### L [id number] ####[facility] ([facility])[address] [place] [address] Urea nitrogen [Mass/Vol] 23 mg/dL Normal 7-[address] [facility] Comment on above: Performed By: #### L [id number] ####[facility] ([facility])[address] [place] [address] UREA NITROGEN/CREATININE (MASS RATIO) IN SER/PLAS 24.[address] [facility] Comment on above: Performed By: #### L [id number] ####[facility] ([facility])[address] [place] [address] CBC WITH AUTO DIFFERENTIALon 08-29-2024 Basophils (Bld) [#/Vol] 0.09 10*3/uL Normal 0.00-0.[address] [facility] Comment on above: Performed By: #### L [id number] ####[facility] ([facility])[address] [place] [address] Basophils/100 WBC (Bld) 1.0 % Normal 0.0-1.[address] [facility] Comment on above: Performed By: #### L [id number] ####[facility] ([facility] [place] [address] Eosinophils (Bld) [#/Vol] 0.48 10*3/uL Normal 0.00-0.[address] [facility] Comment on above: Performed By: #### L [id number] ####[facility] ([facility] [place] [address] Eosinophils/100 WBC (Bld) 5.3 % Normal 0.0-6.[address] [facility] Comment on above: Performed By: #### L [id number] ####[facility] ([facility] [place] [address] Erythrocyte distribution width (RBC) [Ratio] 15.0 % Normal 11.5-15.[address] [facility] Comment on above: Performed By: #### L [id number] ####[facility] ([facility] [place] [address] ERYTHROCYTE MEAN CORPUSCULAR HEMOGLOBIN CONCENTRATION (G/DL) BY AUTOMATED 30.5 g/dL Low 32.0-35.[address] [facility] Comment on above: Performed By: #### L [id number] ####[facility] ([facility])[address] [place] [address] Hematocrit (Bld) [Volume fraction] 51.2 % Normal 39.0-55.[address] [facility] Comment on above: Performed By: #### L [id number] ####[facility] ([facility])[address] [place] [address] Hemoglobin (Bld) [Mass/Vol] 15.6 g/dL Normal 13.0-17.[address] [facility] Comment on above: Performed By: #### L [id number] ####[facility] ([facility])[address] [place] [address] Immature granulocytes (Bld) [#/Vol] 0.07 10*3/uL Normal 0.00-0.[address] [facility] Comment on above: Performed By: #### L [id number] ####[facility] ([facility])[address] [place] [address] Immature granulocytes/100 WBC (Bld) 0.8 % Normal 0.0-1.[address] [facility] Comment on above: Performed By: #### L [id number] ####[facility] ([facility])[address] [place] [address] Lymphocytes (Bld) [#/Vol] 1.41 10*3/uL Normal 1.20-4.[address] [facility] Comment on above: Performed By: #### L [id number] ####[facility] ([facility])[address] [place] [address] Lymphocytes/100 WBC (Bld) 15.7 % Low 20.0-45.[address] [facility] Comment on above: Performed By: #### L [id number] ####[facility] ([facility])[address] [place] [address] MCH (RBC) [Entitic mass] 29.0 pg Normal 27.0-33.[address] [facility] Comment on above: Performed By: #### L [id number] ####[facility] ([facility])[address] [place] [address] MCV (RBC) [Entitic vol] 95.2 fL Normal 82.0-98.[address] [facility] Comment on above: Performed By: #### L [id number] ####[facility] ([facility])[address] [place] [address] Monocytes (Bld) [#/Vol] 0.82 10*3/uL Normal 0.10-1.[address] [facility] Comment on above: Performed By: #### L [id number] ####[facility] ([facility])[address] [place] [address] Monocytes/100 WBC (Bld) 9.1 % Normal 5.0-12.[address] [facility] Comment on above: Performed By: #### L [id number] ####[facility] ([facility])[address] [place] [address] Neutrophils (Bld) [#/Vol] 6.11 10*3/uL Normal 1.60-7.[address] [facility] Comment on above: Performed By: #### L [id number] ####[facility] ([facility])[address] [place], [place] [address] Neutrophils/100 WBC (Bld) 68.1 % Normal 40.0-72.[address] [facility] Comment on above: Performed By: #### L [id number] ####[facility] ([facility])[address] [place] [address] NRBC (PER 100 WBCS) BY AUTOMATED COUNT 0.0 % Normal [address] [facility] Comment on above: Performed By: #### L [id number] ####[facility] ([facility])[address] [address] PLATELETS (10*3/UL) IN BLOOD AUTOMATED COUNT 262 10*3/uL Normal 150-[address] [facility] Comment on above: Performed By: #### L [id number] ####[facility] ([facility])[address] [place] [address] RBC (Bld) [#/Vol] 5.38 10*6/uL Normal 4.20-5.70 [facility] Comment on above: Performed By: #### L [id number] ####[facility] ([facility])[address] [place], [place] [address] WBC (Bld) [#/Vol] 8.98 10*3/uL Normal 4.00-10.60 [facility] Comment on above: Performed By: #### L [id number] ####[facility] ([facility])[address] [place] [address] MAGNESIUMon 08-29-2024 Magnesium [Mass/Vol] 1.7 mg/dL Low 1.9-2.7 [facility] Comment on above: Performed By: #### L [id number] ####[facility] ([facility])[address] [place] [address] POCT GLUCOSE METER UNSOLICIT ED RESULTSon 08-29-2024 Glucose [Mass/Vol] 284 mg/dL High 70-105 [facility] Comment on above: Order Comment: Waive d Testing in the ED is performed under the ED CLIA certificate #[id number]. Result Comment: sbel air Performed By: #### L [id number] ####[facility] ([facility])[address] [place] [address] Glucose [Mass/Vol] 259 mg/dL High 70-105 [facility] Comment on above: Order Comment: Waive d Testing in the ED is performed under the ED CLIA certificate #[id number]. Result Comment: aall [email or web address] Performed By: #### L [id number] ####[facility] ([facility])[address] [place] [address] Glucose [Mass/Vol] 301 mg/dL High 70-105 [facility] Comment on above: Order Comment: Waive d Testing in the ED is performed under the ED CLIA certificate #[id number]. Result Comment: aall [email or web address] Performed By: #### L [id number] ####[facility] ([facility])[address] [place] [address] Glucose [Mass/Vol] 166 mg/dL High 70-105 [facility] Comment on above: Order Comment: Waive d Testing in the ED is performed under the ED CLIA certificate #[id number]. Result Comment: aall [email or web address] Performed By: #### L [id number] ####[facility] ([facility])[address] [place] [address] BASIC METABOLIC PANELon 02-0 Anion gap [Moles/Vol] 8 mmol/L Normal 7-20 [facility] Comment on above: Performed By: #### L [id number] ####[facility] ([facility])[address] [place] [address] Calcium [Mass/Vol] 9.8 mg/dL Normal 8.6-10.3 [facility] Comment on above: Performed By: #### L [id number] ####[facility] ([facility])[address] [place] [address] Chloride [Moles/Vol] 96 mmol/L Low 98-107 [facility] Comment on above: Performed By: #### L [id number] ####[facility] ([facility])[address] [place] [address] CO2 [Moles/Vol] 37 mmol/L High 21-31 [facility] Comment on above: Performed By: #### L [id number] ####[facility] ([facility])[address] [place] [address] Creatinine [Mass/Vol] 0.82 mg/dL Normal 0.70-1.30 [facility] Comment on above: Performed By: #### L [id number] ####[facility] ([facility])[address] [place] [address] GLOMERULAR FILTRATION RATE ML/MIN/1.73 SQ M.PREDICTED 97.5 mL/min/1.73m*2 Normal >60.0 [facility] Comment on above: Result Comment: The [facility]???s estimated glomerular filtration rate (eGFR) will [...] of individuals. Performed By: #### L [id number] ####[facility] ([facility] [place] [address] Glucose [Mass/Vol] 183 mg/dL High 70-100 [facility] Comment on above: Performed By: #### L [id number] ####[facility] ([facility] [place] [address] Potassium [Moles/Vol] 3.7 mmol/L Normal 3.5-5.1 [facility] Comment on above: Performed By: #### L [id number] ####[facility] ([facility])[address] [place] [address] Sodium [Moles/Vol] 137 mmol/L Normal 136-145 [facility] Comment on above: Performed By: #### L [id number] ####[facility] ([facility])[address] [place] [address] Urea nitrogen [Mass/Vol] 17 mg/dL Normal 7-[address] [facility] Comment on above: Performed By: #### L [id number] ####[facility] ([facility])[address] [place] [address] UREA NITROGEN/CREATININE (MASS RATIO) IN SER/PLAS 20.[address] [facility] Comment on above: Performed By: #### L [id number] ####[facility] ([facility])[address] [place] [address] CBC WITH AUTO DIFFERENTIALon 08-28-2024 Basophils (Bld) [#/Vol] 0.09 10*3/uL Normal 0.00-0.[address] [facility] Comment on above: Performed By: #### L [id number] ####[facility] ([facility])[address] [place] [address] Basophils/100 WBC (Bld) 0.9 % Normal 0.0-1.[address] [facility] Comment on above: Performed By: #### L [id number] ####[facility] ([facility] [place] [address] Eosinophils (Bld) [#/Vol] 0.40 10*3/uL Normal 0.00-0.[address] [facility] Comment on above: Performed By: #### L [id number] ####[facility] ([facility])[address] [place] [address] Eosinophils/100 WBC (Bld) 4.2 % Normal 0.0-6.[address] [facility] Comment on above: Performed By: #### L [id number] ####[facility] ([facility])[address] [place] [address] Erythrocyte distribution width (RBC) [Ratio] 14.8 % Normal 11.5-15.[address] [facility] Comment on above: Performed By: #### L [id number] ####[facility] ([facility])[address] [place] [address] ERYTHROCYTE MEAN CORPUSCULAR HEMOGLOBIN CONCENTRATION (G/DL) BY AUTOMATED 30.3 g/dL Low 32.0-35.[address] [facility] Comment on above: Performed By: #### L [id number] ####[facility] ([facility])[address] [place] [address] Hematocrit (Bld) [Volume fraction] 50.9 % Normal 39.0-55.[address] [facility] Comment on above: Performed By: #### L [id number] ####[facility] ([facility])[address] [place] [address] Hemoglobin (Bld) [Mass/Vol] 15.4 g/dL Normal 13.0-17.[address] [facility] Comment on above: Performed By: #### L [id number] ####[facility] ([facility])[address] [place] [address] Immature granulocytes (Bld) [#/Vol] 0.06 10*3/uL Normal 0.00-0.[address] [facility] Comment on above: Performed By: #### L [id number] ####[facility] ([facility])[address] [place] [address] Immature granulocytes/100 WBC (Bld) 0.6 % Normal 0.0-1.[address] [facility] Comment on above: Performed By: #### L [id number] ####[facility] ([facility])[address] [place] [address] Lymphocytes (Bld) [#/Vol] 1.68 10*3/uL Normal 1.20-4.[address] [facility] Comment on above: Performed By: #### L [id number] ####[facility] ([facility])[address] [place] [address] Lymphocytes/100 WBC (Bld) 17.6 % Low 20.0-45.[address] [facility] Comment on above: Performed By: #### L [id number] ####[facility] ([facility])[address] [place] [address] MCH (RBC) [Entitic mass] 29.2 pg Normal 27.0-33.[address] [facility] Comment on above: Performed By: #### L [id number] ####[facility] ([facility])[address] [place] [address] MCV (RBC) [Entitic vol] 96.6 fL Normal 82.0-98.[address] [facility] Comment on above: Performed By: #### L [id number] ####[facility] ([facility] [place] [address] Monocytes (Bld) [#/Vol] 0.99 10*3/uL Normal 0.10-1.[address] [facility] Comment on above: Performed By: #### L [id number] ####[facility] ([facility])[address] [place] [address] Monocytes/100 WBC (Bld) 10.4 % Normal 5.0-12.[address] [facility] Comment on above: Performed By: #### L [id number] ####[facility] ([facility])[address] [place] [address] Neutrophils (Bld) [#/Vol] 6.33 10*3/uL Normal 1.60-7.[address] [facility] Comment on above: Performed By: #### L [id number] ####[facility] ([facility] [place] [address] Neutrophils/100 WBC (Bld) 66.3 % Normal 40.0-72.[address] [facility] Comment on above: Performed By: #### L [id number] ####[facility] ([facility])[address] [address] NRBC (PER 100 WBCS) BY AUTOMATED COUNT 0.0 % Normal [address] [facility] Comment on above: Performed By: #### L [id number] ####[facility] ([facility])[address] [place] [address] PLATELETS (10*3/UL) IN BLOOD AUTOMATED COUNT 252 10*3/uL Normal 150-[address] [facility] Comment on above: Performed By: #### L [id number] ####[facility] ([facility])[address] [place] [address] RBC (Bld) [#/Vol] 5.27 10*6/uL Normal 4.20-5.70 [facility] Comment on above: Performed By: #### L [id number] ####[facility] ([facility])[address] [address] WBC (Bld) [#/Vol] 9.55 10*3/uL Normal 4.00-10.60 [facility] Comment on above: Performed By: #### L [id number] ####[facility] ([facility])[address] [place] [address] MAGNESIUMon 08-28-2024 Magnesium [Mass/Vol] 1.8 mg/dL Low 1.9-2.7 [facility] Comment on above: Performed By: #### L [id number] ####[facility] [place] [address] NURSNOTEon 08-28-2024 NURSNOTE Normal [facility] POCT GLUCOSE METER UNSOLICIT ED RESULTSon 08-28-2024 Glucose [Mass/Vol] 258 mg/dL High 70-105 [facility] Comment on above: Order Comment: Waive d Testing in the ED is performed under the ED CLIA certificate #[id number]. Result Comment: [email or web address] [email or web address] Performed By: #### L [id number] ####[facility] ([facility])[address] [place] [address] Glucose [Mass/Vol] 177 mg/dL High 70-105 [facility] Comment on above: Order Comment: Waive d Testing in the ED is performed under the ED CLIA certificate #[id number]. Result Comment: [email or web address] [email or web address] Performed By: #### L [id number] ####[facility] ([facility])[address] [place] [address] Glucose [Mass/Vol] 242 mg/dL High 70-105 [facility] Comment on above: Order Comment: Waive d Testing in the ED is performed under the ED CLIA certificate #[id number]. Result Comment: [email or web address] [email or web address] Performed By: #### L [id number] ####[facility] ([facility])[address] [place] [address] Glucose [Mass/Vol] 200 mg/dL High 70-105 [facility] Comment on above: Order Comment: Waive d Testing in the ED is performed under the ED CLIA certificate #[id number]. Result Comment: aall [email or web address] Performed By: #### L [id number] ####[facility] ([facility])[address] [place] [address] 30on 08-27-[address] [facility] BASIC METABOLIC PANELon Anion gap [Moles/Vol] 6 mmol/L Low 7-20 [facility] Comment on above: Performed By: #### L [id number] ####[facility] ([facility])[address] [place] [address] Calcium [Mass/Vol] 9.8 mg/dL Normal 8.6-10.3 [facility] Comment on above: Performed By: #### L [id number] ####[facility] ([facility])[address] [place] [address] Chloride [Moles/Vol] 97 mmol/L Low 98-107 [facility] Comment on above: Performed By: #### L [id number] ####[facility] ([facility] [place] [address] CO2 [Moles/Vol] 41 mmol/L Critically high 21-31 [facility] Comment on above: Performed By: #### L [id number] ####[facility] ([facility])[address] [place] [address] Creatinine [Mass/Vol] 0.81 mg/dL Normal 0.70-1.30 [facility] Comment on above: Performed By: #### L [id number] ####[facility] ([facility])[address] [place] [address] GLOMERULAR FILTRATION RATE ML/MIN/1.73 SQ M.PREDICTED 97.8 mL/min/1.73m*2 Normal >60.0 [facility] Comment on above: Result Comment: The [facility]???s estimated glomerular filtration rate (eGFR) will [...] of individuals. Performed By: #### L [id number] ####[facility] ([facility])[address] [place] [address] Glucose [Mass/Vol] 187 mg/dL High 70-100 [facility] Comment on above: Performed By: #### L [id number] ####[facility] ([facility])[address] [place] [address] Potassium [Moles/Vol] 3.5 mmol/L Normal 3.5-5.1 [facility] Comment on above: Performed By: #### L [id number] ####[facility] ([facility])[address] [place] [address] Sodium [Moles/Vol] 140 mmol/L Normal 136-145 [facility] Comment on above: Performed By: #### L [id number] ####[facility] ([facility])[address] [place] [address] Urea nitrogen [Mass/Vol] 16 mg/dL Normal 7-[address] [facility] Comment on above: Performed By: #### L [id number] ####[facility] ([facility])[address] [place] [address] UREA NITROGEN/CREATININE (MASS RATIO) IN SER/PLAS 19.[address] [facility] Comment on above: Performed By: #### L [id number] ####[facility] ([facility])[address] [place] [address] CBC WITH AUTO DIFFERENTIALon 08-27-2024 Basophils (Bld) [#/Vol] 0.06 10*3/uL Normal 0.00-0.[address] [facility] Comment on above: Performed By: #### L [id number] ####[facility] [place] [address] Basophils/100 WBC (Bld) 0.7 % Normal 0.0-1.[address] [facility] Comment on above: Performed By: #### L [id number] ####[facility] ([facility] [place] [address] Eosinophils (Bld) [#/Vol] 0.38 10*3/uL Normal 0.00-0.[address] [facility] Comment on above: Performed By: #### L [id number] ####[facility] ([facility])[address] [place] [address] Eosinophils/100 WBC (Bld) 4.7 % Normal 0.0-6.[address] [facility] Comment on above: Performed By: #### L [id number] ####[facility] ([facility] [place] [address] Erythrocyte distribution width (RBC) [Ratio] 14.6 % Normal 11.5-15.[address] [facility] Comment on above: Performed By: #### L [id number] ####[facility] ([facility] [place] [address] ERYTHROCYTE MEAN CORPUSCULAR HEMOGLOBIN CONCENTRATION (G/DL) BY AUTOMATED 29.7 g/dL Low 32.0-35.[address] [facility] Comment on above: Performed By: #### L [id number] ####[facility] ([facility])[address] [place] [address] Hematocrit (Bld) [Volume fraction] 49.5 % Normal 39.0-55.[address] [facility] Comment on above: Performed By: #### L [id number] ####[facility] ([facility])[address] [place] [address] Hemoglobin (Bld) [Mass/Vol] 14.7 g/dL Normal 13.0-17.[address] [facility] Comment on above: Performed By: #### L [id number] ####[facility] ([facility])[address] [place] [address] Immature granulocytes (Bld) [#/Vol] 0.04 10*3/uL Normal 0.00-0.[address] [facility] Comment on above: Performed By: #### L [id number] ####[facility] ([facility])[address] [place] [address] Immature granulocytes/100 WBC (Bld) 0.5 % Normal 0.0-1.[address] [facility] Comment on above: Performed By: #### L [id number] ####[facility] [place] [address] Lymphocytes (Bld) [#/Vol] 1.42 10*3/uL Normal 1.20-4.[address] [facility] Comment on above: Performed By: #### L [id number] ####[facility] ([facility])[address] [place] [address] Lymphocytes/100 WBC (Bld) 17.7 % Low 20.0-45.[address] [facility] Comment on above: Performed By: #### L [id number] ####[facility] ([facility])[address] [place] [address] MCH (RBC) [Entitic mass] 28.9 pg Normal 27.0-33.[address] [facility] Comment on above: Performed By: #### L [id number] ####[facility] ([facility])[address] [place] [address] MCV (RBC) [Entitic vol] 97.4 fL Normal 82.0-98.[address] [facility] Comment on above: Performed By: #### L [id number] ####[facility] ([facility])[address] [place] [address] Monocytes (Bld) [#/Vol] 0.92 10*3/uL Normal 0.10-1.[address] [facility] Comment on above: Performed By: #### L [id number] ####[facility] ([facility])[address] [place] [address] Monocytes/100 WBC (Bld) 11.5 % Normal 5.0-12.[address] [facility] Comment on above: Performed By: #### L [id number] ####[facility] ([facility])[address] [place] [address] Neutrophils (Bld) [#/Vol] 5.19 10*3/uL Normal 1.60-7.[address] [facility] Comment on above: Performed By: #### L [id number] ####[facility] ([facility])[address] [place] [address] Neutrophils/100 WBC (Bld) 64.9 % Normal 40.0-72.[address] [facility] Comment on above: Performed By: #### L [id number] ####[facility] ([facility])[address] [place] [address] NRBC (PER 100 WBCS) BY AUTOMATED COUNT 0.0 % Normal [address] [facility] Comment on above: Performed By: #### L [id number] ####[facility] ([facility])[address] [place] [address] PLATELETS (10*3/UL) IN BLOOD AUTOMATED COUNT 209 10*3/uL Normal 150-[address] [facility] Comment on above: Performed By: #### L [id number] ####[facility] ([facility])[address] [place] [address] RBC (Bld) [#/Vol] 5.08 10*6/uL Normal 4.20-5.70 [facility] Comment on above: Performed By: #### L [id number] ####[facility] ([facility])[address] [place] [address] WBC (Bld) [#/Vol] 8.01 10*3/uL Normal 4.00-10.60 [facility] Comment on above: Performed By: #### L [id number] ####[facility] ([facility])[address] [place] [address] MAGNESIUMon 08-27-2024 Magnesium [Mass/Vol] 1.6 mg/dL Low 1.9-2.7 [facility] Comment on above: Performed By: #### L [id number] ####[facility] ([facility])[address] [place] [address] POCT GLUCOSE METER UNSOLICIT ED RESULTSon 08-27-2024 Glucose [Mass/Vol] 144 mg/dL High 70-105 [facility] Comment on above: Order Comment: Waive d Testing in the ED is performed under the ED CLIA certificate #[id number]. Result Comment: [email or web address] kol Performed By: #### L [id number] ####[facility] ([facility])[address] [place] [address] Glucose [Mass/Vol] 204 mg/dL High 70-105 [facility] Comment on above: Order Comment: Waive d Testing in the ED is performed under the ED CLIA certificate #[id number]. Result Comment: [email or web address] [email or web address] Performed By: #### L [id number] ####[facility] [place] [address] Glucose [Mass/Vol] 230 mg/dL High 70-105 [facility] Comment on above: Order Comment: Waive d Testing in the ED is performed under the ED CLIA certificate #[id number]. Result Comment: [email or web address] Performed By: #### L [id number] ####[facility] ([facility] [place] [address] Glucose [Mass/Vol] 174 mg/dL High 70-105 [facility] Comment on above: Order Comment: Waive d Testing in the ED is performed under the ED CLIA certificate #[id number]. Result Comment: [email or web address] [email or web address] Performed By: #### L [id number] ####[facility] ([facility])[address] [place] [address] BASIC METABOLIC PANELon 02-0 Anion gap [Moles/Vol] 9 mmol/L Normal 7-20 [facility] Comment on above: Performed By: #### L [id number] ####[facility] ([facility] [place] [address] Calcium [Mass/Vol] 9.4 mg/dL Normal 8.6-10.3 [facility] Comment on above: Performed By: #### L [id number] ####[facility] (BEAKER)[address] [place] [address] Chloride [Moles/Vol] 100 mmol/L Normal 98-107 [facility] Comment on above: Performed By: #### L [id number] ####[facility] ([facility]AKER)[address] [place] [address] CO2 [Moles/Vol] 36 mmol/L High 21-31 [facility] Comment on above: Performed By: #### L [id number] ####[facility] ([facility])[address] [place] [address] Creatinine [Mass/Vol] 0.78 mg/dL Normal 0.70-1.30 [facility] Comment on above: Performed By: #### L [id number] ####[facility] ([facility])[address] [place] [address] GLOMERULAR FILTRATION RATE ML/MIN/1.73 SQ M.PREDICTED 99.0 mL/min/1.73m*2 Normal >60.0 [facility] Comment on above: Result Comment: The [facility]???s estimated glomerular filtration rate (eGFR) will [...] of individuals. Performed By: #### L [id number] ####[facility] ([facility])[address] [place] [address] Glucose [Mass/Vol] 156 mg/dL High 70-100 [facility] Comment on above: Performed By: #### L [id number] ####[facility] ([facility])[address] [place] [address] Potassium [Moles/Vol] 3.5 mmol/L Normal 3.5-5.1 [facility] Comment on above: Performed By: #### L [id number] ####[facility] ([facility])[address] [place] [address] Sodium [Moles/Vol] 141 mmol/L Normal 136-145 [facility] Comment on above: Performed By: #### L [id number] ####[facility] ([facility])[address] [facility] [address] Urea nitrogen [Mass/Vol] 17 mg/dL Normal 7-[address] [facility] Comment on above: Performed By: #### L [id number] ####[facility] ([facility] [place] [address] UREA NITROGEN/CREATININE (MASS RATIO) IN SER/PLAS 21.[address] [facility] Comment on above: Performed By: #### L [id number] ####[facility] ([facility])[address] [place] [address] CBC WITH AUTO DIFFERENTIALon 08-26-2024 Basophils (Bld) [#/Vol] 0.06 10*3/uL Normal 0.00-0.[address] [facility] Comment on above: Performed By: #### L [id number] ####[facility] ([facility])[address] [place] [address] Basophils/100 WBC (Bld) 0.8 % Normal 0.0-1.[address] [facility] Comment on above: Performed By: #### L [id number] ####[facility] ([facility])[address] [place] [address] Eosinophils (Bld) [#/Vol] 0.39 10*3/uL Normal 0.00-0.[address] [facility] Comment on above: Performed By: #### L [id number] ####[facility] ([facility])[address] [place] [address] Eosinophils/100 WBC (Bld) 5.4 % Normal 0.0-6.[address] [facility] Comment on above: Performed By: #### L [id number] ####[facility] ([facility])[address] [place] [address] Erythrocyte distribution width (RBC) [Ratio] 14.7 % Normal 11.5-15.[address] [facility] Comment on above: Performed By: #### L [id number] ####[facility] ([facility])[address] [place] [address] ERYTHROCYTE MEAN CORPUSCULAR HEMOGLOBIN CONCENTRATION (G/DL) BY AUTOMATED 30.4 g/dL Low 32.0-35.[address] [facility] Comment on above: Performed By: #### L [id number] ####[facility] ([facility])[address] [place] [address] Hematocrit (Bld) [Volume fraction] 49.0 % Normal 39.0-55.[address] [facility] Comment on above: Performed By: #### L [id number] ####[facility] ([facility])[address] [place] [address] Hemoglobin (Bld) [Mass/Vol] 14.9 g/dL Normal 13.0-17.[address] [facility] Comment on above: Performed By: #### L [id number] ####[facility] ([facility])[address] [place] [address] Immature granulocytes (Bld) [#/Vol] 0.03 10*3/uL Normal 0.00-0.[address] [facility] Comment on above: Performed By: #### L [id number] ####[facility] ([facility])[address] [place] [address] Immature granulocytes/100 WBC (Bld) 0.4 % Normal 0.0-1.[address] [facility] Comment on above: Performed By: #### L [id number] ####[facility] ([facility])[address] [place] [address] Lymphocytes (Bld) [#/Vol] 1.21 10*3/uL Normal 1.20-4.[address] [facility] Comment on above: Performed By: #### L [id number] ####[facility] ([facility])[address] [place] [address] Lymphocytes/100 WBC (Bld) 16.7 % Low 20.0-45.[address] [facility] Comment on above: Performed By: #### L [id number] ####[facility] ([facility])[address] [place] [address] MCH (RBC) [Entitic mass] 29.2 pg Normal 27.0-33.[address] [facility] Comment on above: Performed By: #### L [id number] ####[facility] ([facility])[address] [place] [address] MCV (RBC) [Entitic vol] 96.1 fL Normal 82.0-98.[address] [facility] Comment on above: Performed By: #### L [id number] ####[facility] ([facility])[address] [place] [address] Monocytes (Bld) [#/Vol] 0.86 10*3/uL Normal 0.10-1.[address] [facility] Comment on above: Performed By: #### L [id number] ####[facility] ([facility] [place] [address] Monocytes/100 WBC (Bld) 11.9 % Normal 5.0-12.[address] [facility] Comment on above: Performed By: #### L [id number] ####[facility] ([facility])[address] [place] [address] Neutrophils (Bld) [#/Vol] 4.70 10*3/uL Normal 1.60-7.[address] [facility] Comment on above: Performed By: #### L [id number] ####[facility] ([facility])[address] [place] [address] Neutrophils/100 WBC (Bld) 64.8 % Normal 40.0-72.[address] [facility] Comment on above: Performed By: #### L [id number] ####[facility] ([facility])[address] [place] [address] NRBC (PER 100 WBCS) BY AUTOMATED COUNT 0.0 % Normal [address] [facility] Comment on above: Performed By: #### L [id number] ####[facility] ([facility] [place] [address] PLATELETS (10*3/UL) IN BLOOD AUTOMATED COUNT 208 10*3/uL Normal 150-[address] [facility] Comment on above: Performed By: #### L [id number] ####[facility] ([facility])[address] [place] [address] RBC (Bld) [#/Vol] 5.10 10*6/uL Normal 4.20-5.70 [facility] Comment on above: Performed By: #### L [id number] ####[facility] ([facility])[address] [place] [address] WBC (Bld) [#/Vol] 7.25 10*3/uL Normal 4.00-10.60 [facility] Comment on above: Performed By: #### L [id number] ####[facility] ([facility])[address] [place] [address] MAGNESIUMon 08-26-2024 Magnesium [Mass/Vol] 1.8 mg/dL Low 1.9-2.7 [facility] Comment on above: Performed By: #### L [id number] ####[facility] ([facility])[address] [place] [address] POCT GLUCOSE METER UNSOLICIT ED RESULTSon 08-26-2024 Glucose [Mass/Vol] 246 mg/dL High 70-105 [facility] Comment on above: Order Comment: Waive d Testing in the ED is performed under the ED CLIA certificate #[id number]. Result Comment: [email or web address] Performed By: #### L [id number] ####[facility] ([facility])[address] [place] [address] Glucose [Mass/Vol] 204 mg/dL High 70-105 [facility] Comment on above: Order Comment: Waive d Testing in the ED is performed under the ED CLIA certificate #[id number]. Result Comment: [email or web address] Performed By: #### L [id number] ####[facility] ([facility])[address] [place] [address] Glucose [Mass/Vol] 219 mg/dL High 70-105 [facility] Comment on above: Order Comment: Waive d Testing in the ED is performed under the ED CLIA certificate #[id number]. Result Comment: [email or web address] Performed By: #### L [id number] ####[facility] ([facility])[address] [place] [address] Glucose [Mass/Vol] 163 mg/dL High 70-105 [facility] Comment on above: Order Comment: Waive d Testing in the ED is performed under the ED CLIA certificate #[id number]. Result Comment: [email or web address] [email or web address] Performed By: #### L [id number] ####[facility] ([facility])[address] [place] [address] 30on 08-25-[address] [facility] BASIC METABOLIC PANELon Anion gap [Moles/Vol] 10 mmol/L Normal 7-20 [facility] Comment on above: Performed By: #### L [id number] ####[facility] ([facility])[address] [place] [address] Calcium [Mass/Vol] 9.5 mg/dL Normal 8.6-10.3 [facility] Comment on above: Performed By: #### L [id number] ####[facility] ([facility] [place] [address] Chloride [Moles/Vol] 97 mmol/L Low 98-107 [facility] Comment on above: Performed By: #### L [id number] ####[facility] ([facility])[address] [place] [address] CO2 [Moles/Vol] 34 mmol/L High 21-31 [facility] Comment on above: Performed By: #### L [id number] ####[facility] ([facility] [place] [address] Creatinine [Mass/Vol] 0.87 mg/dL Normal 0.70-1.30 [facility] Comment on above: Performed By: #### L [id number] ####[facility] ([facility])[address] [place] [address] GLOMERULAR FILTRATION RATE ML/MIN/1.73 SQ M.PREDICTED 95.8 mL/min/1.73m*2 Normal >60.0 [facility] Comment on above: Result Comment: The [facility]???s estimated glomerular filtration rate (eGFR) will [...] of individuals. Performed By: #### L [id number] ####[facility] ([facility])[address] [place] [address] Glucose [Mass/Vol] 178 mg/dL High 70-100 [facility] Comment on above: Performed By: #### L [id number] ####[facility] ([facility])[address] [place] [address] Potassium [Moles/Vol] 3.5 mmol/L Normal 3.5-5.1 [facility] Comment on above: Performed By: #### L [id number] ####[facility] ([facility])[address] [place] [address] Sodium [Moles/Vol] 137 mmol/L Normal 136-145 [facility] Comment on above: Performed By: #### L [id number] ####[facility] ([facility])[address] [place] [address] Urea nitrogen [Mass/Vol] 20 mg/dL Normal 7-[address] [facility] Comment on above: Performed By: #### L [id number] ####[facility] ([facility])[address] [place] [address] UREA NITROGEN/CREATININE (MASS RATIO) IN SER/PLAS 23.[address] [facility] Comment on above: Performed By: #### L [id number] ####[facility] ([facility])[address] [place] [address] CBC WITH AUTO DIFFERENTIALon 08-25-2024 Basophils (Bld) [#/Vol] 0.04 10*3/uL Normal 0.00-0.[address] [facility] Comment on above: Performed By: #### L [id number] ####[facility] ([facility])[address] [place] [address] Basophils/100 WBC (Bld) 0.6 % Normal 0.0-1.[address] [facility] Comment on above: Performed By: #### L [id number] ####[facility] ([facility])[address] [place] [address] Eosinophils (Bld) [#/Vol] 0.22 10*3/uL Normal 0.00-0.[address] [facility] Comment on above: Performed By: #### L [id number] ####[facility] ([facility])[address] [place] [address] Eosinophils/100 WBC (Bld) 3.1 % Normal 0.0-6.[address] [facility] Comment on above: Performed By: #### L [id number] ####[facility] ([facility] [place] [address] Erythrocyte distribution width (RBC) [Ratio] 14.6 % Normal 11.5-15.[address] [facility] Comment on above: Performed By: #### L [id number] ####[facility] ([facility])[address] [place] [address] ERYTHROCYTE MEAN CORPUSCULAR HEMOGLOBIN CONCENTRATION (G/DL) BY AUTOMATED 30.6 g/dL Low 32.0-35.[address] [facility] Comment on above: Performed By: #### L [id number] ####[facility] ([facility])[address] [place] [address] Hematocrit (Bld) [Volume fraction] 49.4 % Normal 39.0-55.[address] [facility] Comment on above: Performed By: #### L [id number] ####[facility] ([facility])[address] [place] [address] Hemoglobin (Bld) [Mass/Vol] 15.1 g/dL Normal 13.0-17.[address] [facility] Comment on above: Performed By: #### L [id number] ####[facility] ([facility])[address] [place] [address] Immature granulocytes (Bld) [#/Vol] 0.04 10*3/uL Normal 0.00-0.[address] [facility] Comment on above: Performed By: #### L [id number] ####[facility] ([facility])[address] [place] [address] Immature granulocytes/100 WBC (Bld) 0.6 % Normal 0.0-1.[address] [facility] Comment on above: Performed By: #### L [id number] ####[facility] ([facility])[address] [place] [address] Lymphocytes (Bld) [#/Vol] 1.08 10*3/uL Low 1.20-4.[address] [facility] Comment on above: Performed By: #### L [id number] ####[facility] ([facility])[address] [place] [address] Lymphocytes/100 WBC (Bld) 15.1 % Low 20.0-45.[address] [facility] Comment on above: Performed By: #### L [id number] ####[facility] ([facility])[address] [place] [address] MCH (RBC) [Entitic mass] 28.9 pg Normal 27.0-33.[address] [facility] Comment on above: Performed By: #### L [id number] ####[facility] ([facility])[address] [place] [address] MCV (RBC) [Entitic vol] 94.6 fL Normal 82.0-98.[address] [facility] Comment on above: Performed By: #### L [id number] ####[facility] ([facility])[address] [place] [address] Monocytes (Bld) [#/Vol] 0.94 10*3/uL Normal 0.10-1.[address] [facility] Comment on above: Performed By: #### L [id number] ####[facility] ([facility])[address] [place] [address] Monocytes/100 WBC (Bld) 13.1 % High 5.0-12.[address] [facility] Comment on above: Performed By: #### L [id number] ####[facility] ([facility])[address] [place] [address] Neutrophils (Bld) [#/Vol] 4.85 10*3/uL Normal 1.60-7.[address] [facility] Comment on above: Performed By: #### L [id number] ####[facility] ([facility])[address] [place] [address] Neutrophils/100 WBC (Bld) 67.5 % Normal 40.0-72.[address] [facility] Comment on above: Performed By: #### L [id number] ####[facility] ([facility])[address] [place] [address] NRBC (PER 100 WBCS) BY AUTOMATED COUNT 0.0 % Normal [address] [facility] Comment on above: Performed By: #### L [id number] ####[facility] ([facility])[address] [place] [address] PLATELETS (10*3/UL) IN BLOOD AUTOMATED COUNT 200 10*3/uL Normal 150-[address] [facility] Comment on above: Performed By: #### L [id number] ####[facility] ([facility])[address] [place] [address] RBC (Bld) [#/Vol] 5.22 10*6/uL Normal 4.20-5.70 [facility] Comment on above: Performed By: #### L [id number] ####[facility] ([facility])[address] [place] [address] WBC (Bld) [#/Vol] 7.17 10*3/uL Normal 4.00-10.60 [facility] Comment on above: Performed By: #### L [id number] ####[facility] ([facility])[address] [place] [address] MAGNESIUMon 08-25-2024 Magnesium [Mass/Vol] 1.6 mg/dL Low 1.9-2.7 [facility] Comment on above: Performed By: #### L [id number] ####[facility] ([facility])[address] [place] [address] POCT GLUCOSE METER UNSOLICIT ED RESULTSon 08-25-2024 Glucose [Mass/Vol] 154 mg/dL High 70-105 [facility] Comment on above: Order Comment: Waive d Testing in the ED is performed under the ED CLIA certificate #[id number]. Result Comment: [email or web address] Performed By: #### L [id number] ####[facility] ([facility])[address] [place] [address] Glucose [Mass/Vol] 196 mg/dL High 70-105 [facility] Comment on above: Order Comment: Waive d Testing in the ED is performed under the ED CLIA certificate #[id number]. Result Comment: [email or web address] [email or web address] Performed By: #### L [id number] ####[facility] ([facility])[address] [place] [address] Glucose [Mass/Vol] 313 mg/dL High 70-105 [facility] Comment on above: Order Comment: Waive d Testing in the ED is performed under the ED CLIA certificate #[id number]. Result Comment: [email or web address] [email or web address] Performed By: #### L [id number] ####[facility] ([facility])[address] [place] [address] Glucose [Mass/Vol] 164 mg/dL High 70-105 [facility] Comment on above: Order Comment: Waive d Testing in the ED is performed under the ED CLIA certificate #[id number]. Result Comment: [email or web address] [email or web address] Performed By: #### L [id number] ####[facility] ([facility])[address] [place] [address] 30on 08-24-20[address] [facility] ANTI-XA (HEPARIN LEVEL)on HEPARIN UNFRACTIONATED (U/ML) IN PPP BY CHROMOGENIC METHOD 0.21 IU/mL Low 0.3-0.[address] [facility] Comment on above: Result Comment: Onward roxaban and Apixaban will interfere with the anti Xa assay used to monitor UFH and LMWH. Performed By: #### L [id number] ####[facility] ([facility])[address] [place] [address] B-TYPE NATRIURETIC PEPTIDEon 08-24-2024 Natriuretic peptide B (Bld) [Mass/Vol] 143 pg/mL High 0-[address] [facility] Comment on above: Performed By: #### L [id number] ####[facility] ([facility])[address] [place] [address] BASIC METABOLIC PANELon Anion gap [Moles/Vol] 11 mmol/L Normal 7-20 [facility] Comment on above: Performed By: #### L [id number] ####[facility] ([facility])[address] [place] [address] Calcium [Mass/Vol] 9.7 mg/dL Normal 8.6-10.3 [facility] Comment on above: Performed By: #### L [id number] ####[facility] ([facility])[address] [place] [address] Chloride [Moles/Vol] 98 mmol/L Normal 98-107 [facility] Comment on above: Performed By: #### L [id number] ####[facility] ([facility])[address] [place] [address] CO2 [Moles/Vol] 33 mmol/L High 21-31 [facility] Comment on above: Performed By: #### L [id number] ####[facility] ([facility] [place] [address] Creatinine [Mass/Vol] 0.93 mg/dL Normal 0.70-1.30 [facility] Comment on above: Performed By: #### L [id number] ####[facility] ([facility])[address] [place] [address] GLOMERULAR FILTRATION RATE ML/MIN/1.73 SQ M.PREDICTED 91.1 mL/min/1.73m*2 Normal >60.0 [facility] Comment on above: Result Comment: [facility]???s estimated glomerular filtration rate (eGFR) will [...] of individuals. Performed By: #### L [id number] ####[facility] ([facility])[address] [place] [address] Glucose [Mass/Vol] 166 mg/dL High 70-100 [facility] Comment on above: Performed By: #### L [id number] ####[facility] ([facility])[address] [place] [address] Potassium [Moles/Vol] 3.8 mmol/L Normal 3.5-5.1 [facility] Comment on above: Performed By: #### L [id number] ####[facility] ([facility])[address] [place] [address] Sodium [Moles/Vol] 138 mmol/L Normal 136-145 [facility] Comment on above: Performed By: #### L [id number] ####[facility] ([facility])[address] [place] [address] Urea nitrogen [Mass/Vol] 23 mg/dL Normal 7-[address] [facility] Comment on above: Performed By: #### L [id number] ####[facility] ([facility])[address] [place] [address] UREA NITROGEN/CREATININE (MASS RATIO) IN SER/PLAS 24.[address] [facility] Comment on above: Performed By: #### L [id number] ####[facility] ([facility])[address] [place] [address] Anion gap [Moles/Vol] 10 mmol/L Normal 7-20 [facility] Comment on above: Performed By: #### L [id number] ####[facility] ([facility])[address] [place] [address] Calcium [Mass/Vol] 9.4 mg/dL Normal 8.6-10.3 [facility] Comment on above: Performed By: #### L [id number] ####[facility] ([facility])[address] [place] [address] Chloride [Moles/Vol] 98 mmol/L Normal 98-107 [facility] Comment on above: Performed By: #### L [id number] ####[facility] ([facility])[address] [place] [address] CO2 [Moles/Vol] 33 mmol/L High 21-31 [facility] Comment on above: Performed By: #### L [id number] ####[facility] ([facility])[address] [place] [address] Creatinine [Mass/Vol] 0.88 mg/dL Normal 0.70-1.30 [facility] Comment on above: Performed By: #### L [id number] ####[facility] ([facility])[address] [place] [address] GLOMERULAR FILTRATION RATE ML/MIN/1.73 SQ M.PREDICTED 95.4 mL/min/1.73m*2 Normal >60.0 [facility] Comment on above: Result Comment: The [facility]???s estimated glomerular filtration rate (eGFR) will [...] of individuals. Performed By: #### L [id number] ####[facility] ([facility])[address] [place] [address] Glucose [Mass/Vol] 132 mg/dL High 70-100 [facility] Comment on above: Performed By: #### L [id number] ####[facility] ([facility])[address] [place] [address] Potassium [Moles/Vol] 2.9 mmol/L Invalid Interpretation Code 3.5-5.[address] [facility] Comment on above: Performed By: #### L [id number] ####[facility] ([facility])[address] [place] [address] Sodium [Moles/Vol] 138 mmol/L Normal 136-145 [facility] Comment on above: Performed By: #### L [id number] ####[facility] ([facility])[address] [place] [address] Urea nitrogen [Mass/Vol] 24 mg/dL Normal 7-[address] [facility] Comment on above: Performed By: #### L [id number] ####[facility] ([facility])[address] [place] [address] UREA NITROGEN/CREATININE (MASS RATIO) IN SER/PLAS 27.[address] [facility] Comment on above: Performed By: #### L [id number] ####[facility] ([facility])[address] [place] [address] CBC WITH AUTO DIFFERENTIALon 08-24-2024 Basophils (Bld) [#/Vol] 0.06 10*3/uL Normal 0.00-0.[address] [facility] Comment on above: Performed By: #### L [id number] ####[facility] ([facility])[address] [place] [address] Basophils/100 WBC (Bld) 0.8 % Normal 0.0-1.[address] [facility] Comment on above: Performed By: #### L [id number] ####[facility] [place] [address] Eosinophils (Bld) [#/Vol] 0.46 10*3/uL Normal 0.00-0.[address] [facility] Comment on above: Performed By: #### L [id number] ####[facility] ([facility])[address] [place] [address] Eosinophils/100 WBC (Bld) 5.9 % Normal 0.0-6.[address] [facility] Comment on above: Performed By: #### L [id number] ####[facility] ([facility])[address] [place] [address] Erythrocyte distribution width (RBC) [Ratio] 14.7 % Normal 11.5-15.[address] [facility] Comment on above: Performed By: #### L [id number] ####[facility] ([facility])[address] [place] [address] ERYTHROCYTE MEAN CORPUSCULAR HEMOGLOBIN CONCENTRATION (G/DL) BY AUTOMATED 31.3 g/dL Low 32.0-35.[address] [facility] Comment on above: Performed By: #### L [id number] ####[facility] ([facility])[address] [place] [address] Hematocrit (Bld) [Volume fraction] 50.8 % Normal 39.0-55.[address] [facility] Comment on above: Performed By: #### L [id number] ####[facility] ([facility])[address] [place] [address] Hemoglobin (Bld) [Mass/Vol] 15.9 g/dL Normal 13.0-17.[address] [facility] Comment on above: Performed By: #### L [id number] ####[facility] ([facility])[address] [place] [address] Immature granulocytes (Bld) [#/Vol] 0.04 10*3/uL Normal 0.00-0.[address] [facility] Comment on above: Performed By: #### L [id number] ####[facility] ([facility])[address] [place] [address] Immature granulocytes/100 WBC (Bld) 0.5 % Normal 0.0-1.[address] [facility] Comment on above: Performed By: #### L [id number] ####[facility] [place] [address] Lymphocytes (Bld) [#/Vol] 1.23 10*3/uL Normal 1.20-4.[address] [facility] Comment on above: Performed By: #### L [id number] ####[facility] [place] [address] Lymphocytes/100 WBC (Bld) 15.8 % Low 20.0-45.[address] [facility] Comment on above: Performed By: #### L [id number] ####[facility] ([facility] [place] [address] MCH (RBC) [Entitic mass] 29.1 pg Normal 27.0-33.[address] [facility] Comment on above: Performed By: #### L [id number] ####[facility] ([facility] [place] [address] MCV (RBC) [Entitic vol] 92.9 fL Normal 82.0-98.[address] [facility] Comment on above: Performed By: #### L [id number] ####[facility] ([facility])[address] [place] [address] Monocytes (Bld) [#/Vol] 0.96 10*3/uL Normal 0.10-1.[address] [facility] Comment on above: Performed By: #### L [id number] ####[facility] ([facility])[address] [place] [address] Monocytes/100 WBC (Bld) 12.4 % High 5.0-12.[address] [facility] Comment on above: Performed By: #### L [id number] ####[facility] ([facility])[address] [place] [address] Neutrophils (Bld) [#/Vol] 5.02 10*3/uL Normal 1.60-7.[address] [facility] Comment on above: Performed By: #### L [id number] ####[facility] ([facility])[address] [place] [address] Neutrophils/100 WBC (Bld) 64.6 % Normal 40.0-72.[address] [facility] Comment on above: Performed By: #### L [id number] ####[facility] ([facility])[address] [place] [address] NRBC (PER 100 WBCS) BY AUTOMATED COUNT 0.0 % Normal [address] [facility] Comment on above: Performed By: #### L [id number] ####[facility] ([facility])[address] [place] [address] PLATELETS (10*3/UL) IN BLOOD AUTOMATED COUNT 194 10*3/uL Normal 150-[address] [facility] Comment on above: Performed By: #### L [id number] ####[facility] ([facility])[address] [place] [address] RBC (Bld) [#/Vol] 5.47 10*6/uL Normal 4.20-5.70 [facility] Comment on above: Performed By: #### L [id number] ####[facility] ([facility])[address] [place] [address] WBC (Bld) [#/Vol] 7.77 10*3/uL Normal 4.00-10.60 [facility] Comment on above: Performed By: #### L [id number] ####[facility] ([facility])[address] [place] [address] CONSULTon 08-24-2024 CONSULT Normal [facility] CT HEAD WO IV CONTRASTon CT HEAD WO IV CONTRAST Invalid Interpretation Code [facility] CTA CHEST W IV CONTRASTon CTA CHEST W IV CONTRAST Normal [facility] MAGNESIUMon 08-24-2024 Magnesium [Mass/Vol] 1.7 mg/dL Low 1.9-2.7 [facility] Comment on above: Performed By: #### L [id number] ####[facility] ([facility])[address] [place] [address] Magnesium [Mass/Vol] 1.4 mg/dL Low 1.9-2.7 [facility] Comment on above: Performed By: #### L [id number] ####[facility] ([facility])[address] [place] [address] NURSNOTEon 08-24-2024 NURSNOTE [facility] NURSNOTE Normal [facility] PHOSPHORUSon 08-24-2024 Magnesium [Mass/Vol] 3.4 mg/dL Normal 2.5-5.0 [facility] Comment on above: Performed By: #### L [id number] ####[facility] ([facility])[address] [place] [address] POCT GLUCOSE METER UNSOLICIT ED RESULTSon 08-24-2024 Glucose [Mass/Vol] 182 mg/dL High 70-105 [facility] Comment on above: Order Comment: Waive d Testing in the ED is performed under the ED CLIA certificate #[id number]. Result Comment: droc kol Performed By: #### L [id number] ####[facility] ([facility])[address] [place] [address] Glucose [Mass/Vol] 166 mg/dL High 70-105 [facility] Comment on above: Order Comment: Waive d Testing in the ED is performed under the ED CLIA certificate #[id number]. Result Comment: sbel cad Performed By: #### L [id number] ####[facility] ([facility])[address] [place] [address] Glucose [Mass/Vol] 150 mg/dL High 70-105 [facility] Comment on above: Order Comment: Waive d Testing in the ED is performed under the ED CLIA certificate #[id number]. Result Comment: besc obe Performed By: #### L [id number] ####[facility] ([facility])[address] [place] [address] Glucose [Mass/Vol] 136 mg/dL High 70-105 [facility] Comment on above: Order Comment: Waive d Testing in the ED is performed under the ED CLIA certificate #[id number]. Result Comment: swey [id number] Value Noted Performed By: #### L [id number] ####[facility] ([facility])[address] [place] [address] BASIC METABOLIC PANELon Anion gap [Moles/Vol] 10 mmol/L Normal 7-20 [facility] Comment on above: Performed By: #### L [id number] ####[facility] ([facility])[address] [place] [address] Calcium [Mass/Vol] 9.8 mg/dL Normal 8.6-10.3 [facility] Comment on above: Performed By: #### L [id number] ####[facility] ([facility])[address] [place] [address] Chloride [Moles/Vol] 99 mmol/L Normal 98-107 [facility] Comment on above: Performed By: #### L [id number] ####[facility] ([facility])[address] [place] [address] CO2 [Moles/Vol] 33 mmol/L High 21-31 [facility] Comment on above: Performed By: #### L [id number] ####[facility] ([facility])[address] [place] [address] Creatinine [Mass/Vol] 0.94 mg/dL Normal 0.70-1.30 [facility] Comment on above: Performed By: #### L [id number] ####[facility] ([facility])[address] [place] [address] GLOMERULAR FILTRATION RATE ML/MIN/1.73 SQ M.PREDICTED 90.0 mL/min/1.73m*2 Normal >60.0 [facility] Comment on above: Result Comment: [facility]???s estimated glomerular filtration rate (eGFR) will [...] of individuals. Performed By: #### L [id number] ####[facility] ([facility])[address] [place] [address] Glucose [Mass/Vol] 274 mg/dL High 70-100 [facility] Comment on above: Performed By: #### L [id number] ####[facility] ([facility])[address] [place] [address] Potassium [Moles/Vol] 3.8 mmol/L Normal 3.5-5.1 [facility] Comment on above: Performed By: #### L [id number] ####[facility] ([facility])[address] [place] [address] Sodium [Moles/Vol] 138 mmol/L Normal 136-145 [facility] Comment on above: Performed By: #### L [id number] ####[facility] ([facility])[address] [place] [address] Urea nitrogen [Mass/Vol] 31 mg/dL High 7-[address] [facility] Comment on above: Performed By: #### L [id number] ####[facility] ([facility])[address] [place] [address] UREA NITROGEN/CREATININE (MASS RATIO) IN SER/PLAS 33.[address] [facility] Comment on above: Performed By: #### L [id number] ####[facility] ([facility])[address] [place] [address] CBC WITH AUTO DIFFERENTIALon 08-23-2024 Basophils (Bld) [#/Vol] 0.06 10*3/uL Normal 0.00-0.[address] [facility] Comment on above: Performed By: #### L [id number] ####[facility] ([facility])[address] [place] [address] Basophils/100 WBC (Bld) 0.9 % Normal 0.0-1.[address] [facility] Comment on above: Performed By: #### L [id number] ####[facility] ([facility])[address] [place] [address] Eosinophils (Bld) [#/Vol] 0.34 10*3/uL Normal 0.00-0.[address] [facility] Comment on above: Performed By: #### L [id number] ####[facility] ([facility])[address] [place] [address] Eosinophils/100 WBC (Bld) 4.8 % Normal 0.0-6.[address] [facility] Comment on above: Performed By: #### L [id number] ####[facility] ([facility])[address] [place] [address] Erythrocyte distribution width (RBC) [Ratio] 14.7 % Normal 11.5-15.[address] [facility] Comment on above: Performed By: #### L [id number] ####[facility] ([facility])[address] [place] [address] ERYTHROCYTE MEAN CORPUSCULAR HEMOGLOBIN CONCENTRATION (G/DL) BY AUTOMATED 31.8 g/dL Low 32.0-35.[address] [facility] Comment on above: Performed By: #### L [id number] ####[facility] ([facility])[address] [place] [address] Hematocrit (Bld) [Volume fraction] 52.5 % Normal 39.0-55.[address] [facility] Comment on above: Performed By: #### L [id number] ####[facility] ([facility])[address] [place] [address] Hemoglobin (Bld) [Mass/Vol] 16.7 g/dL Normal 13.0-17.[address] [facility] Comment on above: Performed By: #### L [id number] ####[facility] ([facility])[address] [place] [address] Immature granulocytes (Bld) [#/Vol] 0.05 10*3/uL Normal 0.00-0.[address] [facility] Comment on above: Performed By: #### L [id number] ####[facility] ([facility])[address] [place] [address] Immature granulocytes/100 WBC (Bld) 0.7 % Normal 0.0-1.[address] [facility] Comment on above: Performed By: #### L [id number] ####[facility] ([facility])[address] [place] [address] Lymphocytes (Bld) [#/Vol] 1.15 10*3/uL Low 1.20-4.[address] [facility] Comment on above: Performed By: #### L [id number] ####[facility] ([facility])[address] [place] [address] Lymphocytes/100 WBC (Bld) 16.4 % Low 20.0-45.[address] [facility] Comment on above: Performed By: #### L [id number] ####[facility] ([facility])[address] [place] [address] MCH (RBC) [Entitic mass] 29.0 pg Normal 27.0-33.[address] [facility] Comment on above: Performed By: #### L [id number] ####[facility] ([facility])[address] [place] [address] MCV (RBC) [Entitic vol] 91.1 fL Normal 82.0-98.[address] [facility] Comment on above: Performed By: #### L [id number] ####[facility] ([facility])[address] [place] [address] Monocytes (Bld) [#/Vol] 0.85 10*3/uL Normal 0.10-1.[address] [facility] Comment on above: Performed By: #### L [id number] ####[facility] ([facility])[address] [place] [address] Monocytes/100 WBC (Bld) 12.1 % High 5.0-12.[address] [facility] Comment on above: Performed By: #### L [id number] ####[facility] [place] [address] Neutrophils (Bld) [#/Vol] 4.58 10*3/uL Normal 1.60-7.[address] [facility] Comment on above: Performed By: #### L [id number] ####[facility] ([facility])[address] [address] Neutrophils/100 WBC (Bld) 65.1 % Normal 40.0-72.[address] [facility] Comment on above: Performed By: #### L [id number] ####[facility] ([facility])[address] [address] NRBC (PER 100 WBCS) BY AUTOMATED COUNT 0.0 % Normal [address] [facility] Comment on above: Performed By: #### L [id number] ####[facility] ([facility])[address] [place] [address] PLATELETS (10*3/UL) IN BLOOD AUTOMATED COUNT 190 10*3/uL Normal 150-[address] [facility] Comment on above: Performed By: #### L [id number] ####[facility] ([facility])[address] [place] [address] RBC (Bld) [#/Vol] 5.76 10*6/uL High 4.20-5.70 [facility] Comment on above: Performed By: #### L [id number] ####[facility] ([facility])[address] [place] [address] WBC (Bld) [#/Vol] 7.03 10*3/uL Normal 4.00-10.60 [facility] Comment on above: Performed By: #### L [id number] ####[facility] ([facility])[address] [place] [address] CONSULTon 02-03-2025 CONSULT Normal [facility] LIPID PANELon 08-23-2024 CHOL/HDL 7.8 mg/dL Normal [facility] Comment on above: Performed By: #### L [id number] ####[facility] ([facility])[address] [facility] [place] [address] Cholesterol [Mass/Vol] 195 mg/dL Normal 120-200 [facility] Comment on above: Performed By: #### L [id number] ####[facility] ([facility])[address] [place] [place] [address] Magnesium [Mass/Vol] 177 mg/dL High 40-149 [facility] Comment on above: Result Comment: TRIG LYCERIDE REFERENCE RANGE:20 YEARS AND OLDER CARDIOVASCULAR RISKLESS THAN 150 mg/dL LOW [id number] TO 199 mg/dL BORDERLINE ETSY101 mg/dL AND GREATER HIGH RISK Performed By: #### L [id number] ####[facility] ([facility])[address] [place] [place] [address] Magnesium [Mass/Vol] 135 mg/dL Normal 0-160 [facility] Comment on above: Performed By: #### L [id number] ####[facility] ([facility])[address] [place] [place] [address] Magnesium [Mass/Vol] 25 mg/dL Normal 23-92 [facility] Comment on above: Performed By: #### L [id number] ####[facility] ([facility])[address] [place] [place] [address] NON HDL CHOL. (LDL+VLDL) [address] [facility] Comment on above: Performed By: #### L [id number] ####[facility] [place] [place] [address] TOTAL VLDL-C 35 mg/dL Normal 0-40 [facility] Comment on above: Performed By: #### L [id number] ####[facility] [place] [place] [address] POCT GLUCOSE METER UNSOLICIT ED RESULTSon 08-23-2024 Glucose [Mass/Vol] 169 mg/dL High 70-105 [facility] Comment on above: Order Comment: Waive d Testing in the ED is performed under the ED CLIA certificate #[id number]. Result Comment: enoch tti Performed By: #### L [id number] ####[facility] ([facility] [place] [address] Glucose [Mass/Vol] 183 mg/dL High 70-105 [facility] Comment on above: Order Comment: Waive d Testing in the ED is performed under the ED CLIA certificate #[id number]. Result Comment: ezab ors2 Performed By: #### L [id number] ####[facility] ([facility])[address] [place] [address] Glucose [Mass/Vol] 283 mg/dL High 70-105 [facility] Comment on above: Order Comment: Waive d Testing in the ED is performed under the ED CLIA certificate #[id number]. Result Comment: ezab ors2 Performed By: #### L [id number] ####[facility] ([facility])[address] [place] [address] Glucose [Mass/Vol] 258 mg/dL High 70-105 [facility] Comment on above: Order Comment: Waive d Testing in the ED is performed under the ED CLIA certificate #[id number]. Result Comment: tful ks2 Performed By: #### L [id number] ####[facility] ([facility])[address] [facility] [place] [address] 30on 08-22-[address] [facility] ANTI-XA (HEPARIN LEVEL)on HEPARIN UNFRACTIONATED (U/ML) IN PPP BY CHROMOGENIC METHOD 0.31 IU/mL Normal 0.3-0.[address] [facility] Comment on above: Result Comment: Onward roxaban and Apixaban will interfere with the anti Xa assay used to monitor UFH and LMWH. Performed By: #### L [id number] ####[facility] ([facility])[address] [place] [address] BASIC METABOLIC PANELon - Anion gap [Moles/Vol] 10 mmol/L Normal 7-20 [facility] Comment on above: Performed By: #### L [id number] ####[facility] ([facility])[address] [place] [address] Calcium [Mass/Vol] 9.6 mg/dL Normal 8.6-10.3 [facility] Comment on above: Performed By: #### L [id number] ####[facility] ([facility] [place] [address] Chloride [Moles/Vol] 102 mmol/L Normal 98-107 [facility] Comment on above: Performed By: #### L [id number] ####[facility] ([facility])[address] [place] [address] CO2 [Moles/Vol] 32 mmol/L High 21-31 [facility] Comment on above: Performed By: #### L [id number] ####[facility] ([facility] [place] [address] Creatinine [Mass/Vol] 1.01 mg/dL Normal 0.70-1.30 [facility] Comment on above: Performed By: #### L [id number] ####[facility] ([facility])[address] [place] [address] GLOMERULAR FILTRATION RATE ML/MIN/1.73 SQ M.PREDICTED 82.5 mL/min/1.73m*2 Normal >60.0 [facility] Comment on above: Result Comment: [facility] [facility]???s estimated glomerular filtration rate (eGFR) will [...] of individuals. Performed By: #### L [id number] ####[facility] ([facility] [place] [address] Glucose [Mass/Vol] 263 mg/dL High 70-100 [facility] Comment on above: Performed By: #### L [id number] ####[facility] ([facility] [place] [address] Potassium [Moles/Vol] 3.7 mmol/L Normal 3.5-5.1 [facility] Comment on above: Performed By: #### L [id number] ####[facility] ([facility])[address] [place] [address] Sodium [Moles/Vol] 140 mmol/L Normal 136-145 [facility] Comment on above: Performed By: #### L [id number] ####[facility] ([facility])[address] [place] [address] Urea nitrogen [Mass/Vol] 33 mg/dL High 7-[address] [facility] Comment on above: Performed By: #### L [id number] ####[facility] ([facility])[address] [place] [address] UREA NITROGEN/CREATININE (MASS RATIO) IN SER/PLAS 32.[address] [facility] Comment on above: Performed By: #### L [id number] ####[facility] ([facility])[address] [place] [address] CBC WITH AUTO DIFFERENTIALon 08-22-2024 Basophils (Bld) [#/Vol] 0.05 10*3/uL Normal 0.00-0.[address] [facility] Comment on above: Performed By: #### L [id number] ####[facility] ([facility])[address] [place] [address] Basophils/100 WBC (Bld) 0.5 % Normal 0.0-1.[address] [facility] Comment on above: Performed By: #### L [id number] ####[facility] ([facility])[address] [place] [address] Eosinophils (Bld) [#/Vol] 0.36 10*3/uL Normal 0.00-0.[address] [facility] Comment on above: Performed By: #### L [id number] ####[facility] ([facility])[address] [place] [address] Eosinophils/100 WBC (Bld) 3.9 % Normal 0.0-6.[address] [facility] Comment on above: Performed By: #### L [id number] ####[facility] ([facility])[address] [place] [address] Erythrocyte distribution width (RBC) [Ratio] 14.7 % Normal 11.5-15.[address] [facility] Comment on above: Performed By: #### L [id number] ####[facility] ([facility])[address] [place] [address] ERYTHROCYTE MEAN CORPUSCULAR HEMOGLOBIN CONCENTRATION (G/DL) BY AUTOMATED 30.8 g/dL Low 32.0-35.[address] [facility] Comment on above: Performed By: #### L [id number] ####[facility] ([facility])[address] [place] [address] Hematocrit (Bld) [Volume fraction] 52.9 % Normal 39.0-55.[address] [facility] Comment on above: Performed By: #### L [id number] ####[facility] ([facility])[address] [place] [address] Hemoglobin (Bld) [Mass/Vol] 16.3 g/dL Normal 13.0-17.[address] [facility] Comment on above: Performed By: #### L [id number] ####[facility] ([facility])[address] [place] [address] Immature granulocytes (Bld) [#/Vol] 0.07 10*3/uL Normal 0.00-0.[address] [facility] Comment on above: Performed By: #### L [id number] ####[facility] ([facility])[address] [place] [address] Immature granulocytes/100 WBC (Bld) 0.7 % Normal 0.0-1.[address] [facility] Comment on above: Performed By: #### L [id number] ####[facility] ([facility])[address] [place] [address] Lymphocytes (Bld) [#/Vol] 1.16 10*3/uL Low 1.20-4.[address] [facility] Comment on above: Performed By: #### L [id number] ####[facility] ([facility])[address] [place] [address] Lymphocytes/100 WBC (Bld) 12.4 % Low 20.0-45.[address] [facility] Comment on above: Performed By: #### L [id number] ####[facility] ([facility])[address] [place] [address] MCH (RBC) [Entitic mass] 28.8 pg Normal 27.0-33.[address] [facility] Comment on above: Performed By: #### L [id number] ####[facility] ([facility])[address] [place] [address] MCV (RBC) [Entitic vol] 93.5 fL Normal 82.0-98.[address] [facility] Comment on above: Performed By: #### L [id number] ####[facility] ([facility])[address] [place] [address] Monocytes (Bld) [#/Vol] 1.21 10*3/uL High 0.10-1.[address] [facility] Comment on above: Performed By: #### L [id number] ####[facility] ([facility])[address] [place] [address] Monocytes/100 WBC (Bld) 12.9 % High 5.0-12.[address] [facility] Comment on above: Performed By: #### L [id number] ####[facility] ([facility])[address] [place] [address] Neutrophils (Bld) [#/Vol] 6.50 10*3/uL Normal 1.60-7.[address] [facility] Comment on above: Performed By: #### L [id number] ####[facility] ([facility])[address] [place] [address] Neutrophils/100 WBC (Bld) 69.6 % Normal 40.0-72.[address] [facility] Comment on above: Performed By: #### L [id number] ####[facility] ([facility])[address] [place] [address] NRBC (PER 100 WBCS) BY AUTOMATED COUNT 0.0 % Normal [address] [facility] Comment on above: Performed By: #### L [id number] ####[facility] ([facility])[address] [place] [address] PLATELETS (10*3/UL) IN BLOOD AUTOMATED COUNT 187 10*3/uL Normal 150-[address] [facility] Comment on above: Performed By: #### L [id number] ####[facility] ([facility])[address] [place] [address] RBC (Bld) [#/Vol] 5.66 10*6/uL Normal 4.20-5.70 [facility] Comment on above: Performed By: #### L [id number] ####[facility] ([facility])[address] [place] [address] WBC (Bld) [#/Vol] 9.35 10*3/uL Normal 4.00-10.60 [facility] Comment on above: Performed By: #### L [id number] ####[facility] ([facility])[address] [place] [address] POCT GLUCOSE METER UNSOLICIT ED RESULTSon 08-22-2024 Glucose [Mass/Vol] 256 mg/dL High 70-105 [facility] Comment on above: Order Comment: Waive d Testing in the ED is performed under the ED CLIA certificate #[id number]. Result Comment: ezab ors2 Performed By: #### L [id number] ####[facility] ([facility])[address] [place] [address] Glucose [Mass/Vol] 277 mg/dL High 70-105 [facility] Comment on above: Order Comment: Waive d Testing in the ED is performed under the ED CLIA certificate #[id number]. Result Comment: ezab ors2 Performed By: #### L [id number] ####[facility] ([facility])[address] [place] [address] ANTI-XA (HEPARIN LEVEL)on HEPARIN UNFRACTIONATED (U/ML) IN PPP BY CHROMOGENIC METHOD 0.30 IU/mL Normal 0.3-0.[address] [facility] Comment on above: Result Comment: Onward roxaban and Apixaban will interfere with the anti Xa assay used to monitor UFH and LMWH. Performed By: #### L [id number] ####[facility] ([facility])[address] [place] [address] ARTERIAL BLOOD GAS WITH CO-O XIMETRYon 08-21-2024 Base excess Calc (Bld) [Moles/Vol] 6.7 mmol/L High -2.0-3.[address] [facility] Comment on above: Performed By: #### L [id number] ####[facility] [id number] [place] [address] [place] CARBOXYHEMOGLOBIN/HEMO GLOBIN TOTAL % IN BLOOD 2.0 % Normal 0.0-3.[address] [facility] Comment on above: Performed By: #### L [id number] ####[facility] [id number] [place] [address] [place] CO2 (Bld) [Partial pressure] 43 mm[Hg] Normal 35-[address] [facility] Comment on above: Performed By: #### L [id number] ####[facility] [id number] [place] [address] [place] DEOXYGENATED HEMOGLOBIN IN BLOOD 4.9 % Normal 1-5 [facility] Comment on above: Performed By: #### L [id number] ####[facility] [id number] [place] [address] [place] FIO2 50 % Normal [facility] Comment on above: Performed By: #### L [id number] ####[facility] [id number] [place] [address] [facility] HCO3 (Bld) [Moles/Vol] 31.3 mmol/L High 21.0-28.0 [facility] Comment on above: Performed By: #### L [id number] ####[facility] [id number] [facility] [address] [facility] Hemoglobin (Bld) [Mass/Vol] 16.5 g/dL Normal 11.7-17.[address] [facility] Comment on above: Performed By: #### L [id number] ####[facility] [id number] [facility] [place] [address] [place] METHEMOGLOBIN/100 IN BLOOD 0.7 % Normal 0.0-1.[address] [facility] Comment on above: Performed By: #### L [id number] ####[facility] [id number] [place] [address] [facility] Oxygen (Bld) [Partial pressure] 68 mm[Hg] Low 83-[address] [facility] Comment on above: Performed By: #### L [id number] ####[facility] [id number] [place] [address] [facility] OXYGEN SATURATION (%) IN ARTERIAL BLOOD 95.0 % Normal 94.0-98.[address] [facility] Comment on above: Performed By: #### L [id number] ####[facility] [id number] [place] [address] [facility] OXYGENATED HEMOGLOBIN IN BLOOD 92.4 % Normal 90.0-95.[address] [facility] Comment on above: Performed By: #### L [id number] ####[facility] [id number] [place] [address] [place] pH (Bld) 7.47 [pH] High 7.35-7.[address] [facility] Comment on above: Performed By: #### L [id number] ####[facility] [id number] [facility] [place] [address] [facility] SOURCE OF OXYGEN Bi-PAP Normal [facility] Comment on above: Performed By: #### L [id number] ####[facility] [id number] [place] [address] [facility] Base excess Calc (Bld) [Moles/Vol] 5.1 mmol/L High -2.0-3.[address] [facility] Comment on above: Performed By: #### L [id number] ####[facility] [id number] [place] [address] [place] CARBOXYHEMOGLOBIN/HEMO GLOBIN TOTAL % IN BLOOD 1.9 % Normal 0.0-3.[address] [facility] Comment on above: Performed By: #### L [id number] ####[facility] [id number] [place] [address] [place] CO2 (Bld) [Partial pressure] 46 mm[Hg] Normal 35-[address] [facility] Comment on above: Performed By: #### L [id number] ####[facility] [id number] [place] [address] [facility] DEOXYGENATED HEMOGLOBIN IN BLOOD 15.8 % Critically high 1-5 [facility] Comment on above: Performed By: #### L [id number] ####[facility] [id number] [facility] [place] [address] [place] HCO3 (Bld) [Moles/Vol] 30.5 mmol/L High 21.0-28.0 [facility] Comment on above: Performed By: #### L [id number] ####[facility] [id number] [place] [address] [place] Hemoglobin (Bld) [Mass/Vol] 16.4 g/dL Normal 11.7-17.[address] [facility] Comment on above: Performed By: #### L [id number] ####[facility] [id number] [facility] [place] [address] [place] LPM [address] [facility] Comment on above: Performed By: #### L [id number] ####[facility] [id number] [facility] [place] [address] [place] METHEMOGLOBIN/100 IN BLOOD 0.6 % Normal 0.0-1.[address] [facility] Comment on above: Performed By: #### L [id number] ####[facility] [id number] [facility] [place] [address] [facility] Oxygen (Bld) [Partial pressure] 53 mm[Hg] Invalid Interpretation Code 83-[address] [facility] Comment on above: Performed By: #### L [id number] ####[facility] [id number] [facility] [place] [address] [facility] OXYGEN SATURATION (%) IN ARTERIAL BLOOD 83.8 % Invalid Interpretation Code 94.0-98.[address] [facility] Comment on above: Performed By: #### L [id number] ####[facility] [id number] [place] [address] [facility] OXYGENATED HEMOGLOBIN IN BLOOD 81.7 % Invalid Interpretation Code 90.0-95.[address] [facility] Comment on above: Performed By: #### L [id number] ####[facility] [id number] [place] [address] [facility] pH (Bld) 7.43 [pH] Normal 7.35-7.[address] [facility] Comment on above: Performed By: #### L [id number] ####[facility] [id number] [place] [address] [facility] SOURCE OF OXYGEN SALTER Normal [facility] Comment on above: Performed By: #### L [id number] ####[facility] [id number] [place] [address] [facility] ARTERIAL BLOOD GAS WITH IONI ZED CALCIUMon 08-21-2024 Base excess Calc (Bld) [Moles/Vol] 6.2 mmol/L High -2.0-3.[address] [facility] Comment on above: Performed By: #### L [id number] ####[facility] [id number] [place] [address] [place] CALCIUM IONIZED (MMOL/L) IN BLOOD 1.30 mmol/L Normal 1.15-1.[address] [facility] Comment on above: Performed By: #### L [id number] ####[facility] [id number] [place] [address] [facility] CO2 (Bld) [Partial pressure] 45 mm[Hg] Normal 35-[address] [facility] Comment on above: Performed By: #### L [id number] ####[facility] [id number] [place] [address] [facility] FIO2 50 % Normal [facility] Comment on above: Performed By: #### L [id number] ####[facility] [id number] [place] [address] [facility] HCO3 (Bld) [Moles/Vol] 31.3 mmol/L High 21.0-28.0 [facility] Comment on above: Performed By: #### L [id number] ####[facility] [id number] [place] [address] [facility] Oxygen (Bld) [Partial pressure] 70 mm[Hg] Low 83-[address] [facility] Comment on above: Performed By: #### L [id number] ####[facility] [id number] [place] [address] [facility] OXYGEN SATURATION (%) IN ARTERIAL BLOOD 94.9 % Normal 94.0-98.[address] [facility] Comment on above: Performed By: #### L [id number] ####[facility] [id number] [place] [address] [facility] PEEP 8 cmH2O Normal [facility] Comment on above: Performed By: #### L [id number] ####[facility] [id number] [place] [address] [facility] pH (Bld) 7.45 [pH] Normal 7.35-7.[address] [facility] Comment on above: Performed By: #### L [id number] ####[facility] [id number] [place] [address] [facility] PRESSURE SUPPORT 14 Normal [facility] Comment on above: Performed By: #### L [id number] ####[facility] [id number] [place] [address] [facility] SOURCE OF OXYGEN Bi-PAP Normal [facility] Comment on above: Performed By: #### L [id number] ####[facility] [id number] [place] [address] [facility] BASIC METABOLIC PANELon 02-0 Anion gap [Moles/Vol] 11 mmol/L Normal 7-20 [facility] Comment on above: Performed By: #### L [id number] ####[facility])[address] [place] [address] Calcium [Mass/Vol] 9.4 mg/dL Normal 8.6-10.3 [facility] Comment on above: Performed By: #### L [id number] ####[facility] ([facility])[address] [place] [address] Chloride [Moles/Vol] 101 mmol/L Normal 98-107 [facility] Comment on above: Performed By: #### L [id number] ####[facility] ([facility])[address] [place] [address] CO2 [Moles/Vol] 30 mmol/L Normal 21-31 [facility] Comment on above: Performed By: #### L [id number] ####[facility] ([facility])[address] [place] [address] Creatinine [Mass/Vol] 1.05 mg/dL Normal 0.70-1.30 [facility] Comment on above: Performed By: #### L [id number] ####[facility] ([facility] [place] [address] GLOMERULAR FILTRATION RATE ML/MIN/1.73 SQ M.PREDICTED 78.8 mL/min/1.73m*2 Normal >60.0 [facility] Comment on above: Result Comment: [facility]???s estimated glomerular filtration rate (eGFR) will [...] of individuals. Performed By: #### L [id number] ####[facility] ([facility])[address] [place] [address] Glucose [Mass/Vol] 269 mg/dL High 70-100 [facility] Comment on above: Performed By: #### L [id number] ####[facility] ([facility])[address] [place] [address] Potassium [Moles/Vol] 4.0 mmol/L Normal 3.5-5.1 [facility] Comment on above: Performed By: #### L [id number] ####[facility] ([facility])[address] [place] [address] Sodium [Moles/Vol] 138 mmol/L Normal 136-145 [facility] Comment on above: Performed By: #### L [id number] ####[facility] ([facility])[address] [place] [address] Urea nitrogen [Mass/Vol] 35 mg/dL High 7-[address] [facility] Comment on above: Performed By: #### L [id number] ####[facility] ([facility])[address] [place] [address] UREA NITROGEN/CREATININE (MASS RATIO) IN SER/PLAS 33.[address] [facility] Comment on above: Performed By: #### L [id number] ####[facility] ([facility])[address] [place] [address] CALCIUM, IONIZEDon CALCIUM IONIZED (MMOL/L) IN BLOOD 1.29 mmol/L Normal 1.15-1.[address] [facility] Comment on above: Performed By: #### C ALCIUM, IONIZED ####[facility] [id number] [place] [address] [place] CBC WITH AUTO DIFFERENTIALon 08-21-2024 Basophils (Bld) [#/Vol] 0.05 10*3/uL Normal 0.00-0.[address] [facility] Comment on above: Performed By: #### L [id number] ####[facility] ([facility])[address] [place] [address] Basophils/100 WBC (Bld) 0.6 % Normal 0.0-1.[address] [facility] Comment on above: Performed By: #### L [id number] ####[facility] ([facility])[address] [place] [address] Eosinophils (Bld) [#/Vol] 0.43 10*3/uL Normal 0.00-0.[address] [facility] Comment on above: Performed By: #### L [id number] ####[facility] ([facility])[address] [place] [address] Eosinophils/100 WBC (Bld) 5.2 % Normal 0.0-6.[address] [facility] Comment on above: Performed By: #### L [id number] ####[facility] ([facility])[address] [place] [address] Erythrocyte distribution width (RBC) [Ratio] 14.8 % Normal 11.5-15.[address] [facility] Comment on above: Performed By: #### L [id number] ####[facility] ([facility])[address] [place] [address] ERYTHROCYTE MEAN CORPUSCULAR HEMOGLOBIN CONCENTRATION (G/DL) BY AUTOMATED 31.1 g/dL Low 32.0-35.[address] [facility] Comment on above: Performed By: #### L [id number] ####[facility] ([facility])[address] [place] [address] Hematocrit (Bld) [Volume fraction] 52.1 % Normal 39.0-55.[address] [facility] Comment on above: Performed By: #### L [id number] ####[facility] ([facility])[address] [place] [address] Hemoglobin (Bld) [Mass/Vol] 16.2 g/dL Normal 13.0-17.[address] [facility] Comment on above: Performed By: #### L [id number] ####[facility] ([facility])[address] [place] [address] Immature granulocytes (Bld) [#/Vol] 0.06 10*3/uL Normal 0.00-0.[address] [facility] Comment on above: Performed By: #### L [id number] ####[facility] ([facility])[address] [place] [address] Immature granulocytes/100 WBC (Bld) 0.7 % Normal 0.0-1.[address] [facility] Comment on above: Performed By: #### L [id number] ####[facility] ([facility])[address] [place] [address] Lymphocytes (Bld) [#/Vol] 1.10 10*3/uL Low 1.20-4.[address] [facility] Comment on above: Performed By: #### L [id number] ####[facility] ([facility])[address] [place] [address] Lymphocytes/100 WBC (Bld) 13.3 % Low 20.0-45.[address] [facility] Comment on above: Performed By: #### L [id number] ####[facility] ([facility])[address] [place] [address] MCH (RBC) [Entitic mass] 29.1 pg Normal 27.0-33.[address] [facility] Comment on above: Performed By: #### L [id number] ####[facility] ([facility])[address] [place] [address] MCV (RBC) [Entitic vol] 93.7 fL Normal 82.0-98.[address] [facility] Comment on above: Performed By: #### L [id number] ####[facility] ([facility])[address] [place] [address] Monocytes (Bld) [#/Vol] 0.92 10*3/uL Normal 0.10-1.[address] [facility] Comment on above: Performed By: #### L [id number] ####[facility] ([facility])[address] [place] [address] Monocytes/100 WBC (Bld) 11.1 % Normal 5.0-12.[address] [facility] Comment on above: Performed By: #### L [id number] ####[facility] [place] [address] Neutrophils (Bld) [#/Vol] 5.72 10*3/uL Normal 1.60-7.[address] [facility] Comment on above: Performed By: #### L [id number] ####[facility] ([facility])[address] [place] [address] Neutrophils/100 WBC (Bld) 69.1 % Normal 40.0-72.[address] [facility] Comment on above: Performed By: #### L [id number] ####[facility] ([facility])[address] [place] [address] NRBC (PER 100 WBCS) BY AUTOMATED COUNT 0.0 % Normal [address] [facility] Comment on above: Performed By: #### L [id number] ####[facility] ([facility])[address] [place] [address] PLATELETS (10*3/UL) IN BLOOD AUTOMATED COUNT 199 10*3/uL Normal 150-[address] [facility] Comment on above: Performed By: #### L [id number] ####[facility] ([facility])[address] [place] [address] RBC (Bld) [#/Vol] 5.56 10*6/uL Normal 4.20-5.70 [facility] Comment on above: Performed By: #### L [id number] ####[facility] ([facility])[address] [place] [address] WBC (Bld) [#/Vol] 8.28 10*3/uL Normal 4.00-10.60 [facility] Comment on above: Performed By: #### L [id number] ####[facility] ([facility])[address] [place] [address] [place] BRAIN PERFUSIONon 025 CT BRAIN PERFUSION Invalid Interpretation Code [facility] CT HEAD WO IV CONTRASTon CT HEAD WO IV CONTRAST [facility] HEAD W IV CONTRASTon CTA HEAD W IV CONTRAST Normal [facility] CTA NECK W IV CONTRASTon CTA NECK W IV CONTRAST [facility] MAGNESIUMon 08-21-2024 Magnesium [Mass/Vol] 1.8 mg/dL Low 1.9-2.7 [facility] Comment on above: Performed By: #### L [id number] ####[facility] ([facility])[address] [place] [address] MRSA/MSSA DNA NASALon 2024 MRSA DNA Positive Abnormal Negative [facility] Comment on above: Order Comment: Testi [...] preclude nasal colonization. Performed By: #### L [id number] ####[facility] ([facility])[address] [place] [address] MSSA DNA Negative Normal Negative [facility] Comment on above: Order Comment: Testi [...] preclude nasal colonization. Performed By: #### L [id number] ####[facility] ([facility])[address] [place] [address] PHOSPHORUSon 08-21-2024 Magnesium [Mass/Vol] 2.5 mg/dL Normal 2.5-5.0 [facility] Comment on above: Performed By: #### L [id number] ####[facility] ([facility])[address] [place] [address] POCT GLUCOSE METER UNSOLICIT ED RESULTSon 08-21-2024 Glucose [Mass/Vol] 230 mg/dL High 70-105 [facility] Comment on above: Order Comment: Waive d Testing in the ED is performed under the ED CLIA certificate #[id number]. Result Comment: [email or web address] Performed By: #### L [id number] ####[facility] ([facility])[address] [place] [address] Glucose [Mass/Vol] 226 mg/dL High 70-105 [facility] Comment on above: Order Comment: Waive d Testing in the ED is performed under the ED CLIA certificate #[id number]. Result Comment: [email or web address] Performed By: #### L [id number] ####[facility] ([facility])[address] [place] [address] Glucose [Mass/Vol] 229 mg/dL High 70-105 [facility] Comment on above: Order Comment: Waive d Testing in the ED is performed under the ED CLIA certificate #[id number]. Result Comment: [email or web address] Performed By: #### L [id number] ####[facility] ([facility])[address] [place] [address] Glucose [Mass/Vol] 234 mg/dL High 70-105 [facility] Comment on above: Order Comment: Waive d Testing in the ED is performed under the ED CLIA certificate #[id number]. Result Comment: [email or web address] Performed By: #### L [id number] ####[facility] ([facility])[address] [place] [address] POTASSIUM, WHOLE BLOODon Potassium [Moles/Vol] 3.3 mmol/L Low 3.5-5.1 [facility] Comment on above: Performed By: #### P OTASSIUM, WHOLE BLOOD ####[facility] [id number] [place] [address] [place] SODIUM, WHOLE BLOODon 2024 SODIUM, WHOLE BLOOD 137 Normal 136-145 [facility] Comment on above: Performed By: #### S ODIUM, WHOLE BLOOD ####[facility] [id number] [place] [address] [place] 30on 08-20-20[address] [facility] ANTI-XA (HEPARIN LEVEL)on HEPARIN UNFRACTIONATED (U/ML) IN PPP BY CHROMOGENIC METHOD 0.30 IU/mL Normal 0.3-0.[address] [facility] Comment on above: Result Comment: Tatyana roxaban and Apixaban will interfere with the anti Xa assay used to monitor UFH and LMWH. Performed By: #### L [id number] ####[facility] ([facility])[address] [place] [address] BASIC METABOLIC PANELon 07-23 Anion gap [Moles/Vol] 8 mmol/L Normal 7-20 [facility] Comment on above: Performed By: #### L [id number] ####[facility] ([facility])[address] [place] [address] Calcium [Mass/Vol] 9.4 mg/dL Normal 8.6-10.3 [facility] Comment on above: Performed By: #### L [id number] ####[facility] ([facility])[address] [place] [address] Chloride [Moles/Vol] 99 mmol/L Normal 98-107 [facility] Comment on above: Performed By: #### L [id number] ####[facility] ([facility])[address] [place] [address] CO2 [Moles/Vol] 34 mmol/L High -31 [facility] Comment on above: Performed By: #### L [id number] ####[facility] ([facility])[address] [place] [address] Creatinine [Mass/Vol] 0.97 mg/dL Normal 0.70-1.30 [facility] Comment on above: Performed By: #### L [id number] ####[facility] ([facility])[address] [place] [address] GLOMERULAR FILTRATION RATE ML/MIN/1.73 SQ M.PREDICTED 86.6 mL/min/1.73m*2 Normal >60.0 [facility] Comment on above: Result Comment: The [facility]???s estimated glomerular filtration rate (eGFR) will [...] of individuals. Performed By: #### L [id number] ####[facility] ([facility])[address] [place] [address] Glucose [Mass/Vol] 267 mg/dL High 70-100 [facility] Comment on above: Performed By: #### L [id number] ####[facility] ([facility])[address] [place] [address] Potassium [Moles/Vol] 3.9 mmol/L Normal 3.5-5.1 [facility] Comment on above: Performed By: #### L [id number] ####[facility] ([facility])[address] [place] [address] Sodium [Moles/Vol] 137 mmol/L Normal 136-145 [facility] Comment on above: Performed By: #### L [id number] ####[facility] ([facility])[address] [address] Urea nitrogen [Mass/Vol] 33 mg/dL High 7-[address] [facility] Comment on above: Performed By: #### L [id number] ####[facility] ([facility])[address] [place] [address] UREA NITROGEN/CREATININE (MASS RATIO) IN SER/PLAS 34.[address] [facility] Comment on above: Performed By: #### L [id number] ####[facility] [place] [address] CBC WITH AUTO DIFFERENTIALon 08-20-2024 Basophils (Bld) [#/Vol] 0.04 10*3/uL Normal 0.00-0.[address] [facility] Comment on above: Performed By: #### L [id number] ####[facility] ([facility])[address] [place] [address] Basophils/100 WBC (Bld) 0.4 % Normal 0.0-1.[address] [facility] Comment on above: Performed By: #### L [id number] ####[facility] ([facility])[address] [place] [address] Eosinophils (Bld) [#/Vol] 0.58 10*3/uL High 0.00-0.[address] [facility] Comment on above: Performed By: #### L [id number] ####[facility] ([facility])[address] [place] [address] Eosinophils/100 WBC (Bld) 5.6 % Normal 0.0-6.[address] [facility] Comment on above: Performed By: #### L [id number] ####[facility] ([facility] [place] [address] Erythrocyte distribution width (RBC) [Ratio] 15.1 % High 11.5-15.[address] [facility] Comment on above: Performed By: #### L [id number] ####[facility] ([facility] [place] [address] ERYTHROCYTE MEAN CORPUSCULAR HEMOGLOBIN CONCENTRATION (G/DL) BY AUTOMATED 30.5 g/dL Low 32.0-35.[address] [facility] Comment on above: Performed By: #### L [id number] ####[facility] ([facility])[address] [place] [address] Hematocrit (Bld) [Volume fraction] 52.1 % Normal 39.0-55.[address] [facility] Comment on above: Performed By: #### L [id number] ####[facility] ([facility])[address] [place] [address] Hemoglobin (Bld) [Mass/Vol] 15.9 g/dL Normal 13.0-17.[address] [facility] Comment on above: Performed By: #### L [id number] ####[facility] ([facility])[address] [place] [address] Immature granulocytes (Bld) [#/Vol] 0.07 10*3/uL Normal 0.00-0.[address] [facility] Comment on above: Performed By: #### L [id number] ####[facility] ([facility])[address] [place] [address] Immature granulocytes/100 WBC (Bld) 0.7 % Normal 0.0-1.[address] [facility] Comment on above: Performed By: #### L [id number] ####[facility] ([facility])[address] [place] [address] Lymphocytes (Bld) [#/Vol] 0.94 10*3/uL Low 1.20-4.[address] [facility] Comment on above: Performed By: #### L [id number] ####[facility] ([facility])[address] [place] [address] Lymphocytes/100 WBC (Bld) 9.1 % Low 20.0-45.[address] [facility] Comment on above: Performed By: #### L [id number] ####[facility] ([facility])[address] [place] [address] MCH (RBC) [Entitic mass] 29.0 pg Normal 27.0-33.[address] [facility] Comment on above: Performed By: #### L [id number] ####[facility] ([facility])[address] [place] [address] MCV (RBC) [Entitic vol] 94.9 fL Normal 82.0-98.[address] [facility] Comment on above: Performed By: #### L [id number] ####[facility] ([facility] [place] [address] Monocytes (Bld) [#/Vol] 0.95 10*3/uL Normal 0.10-1.[address] [facility] Comment on above: Performed By: #### L [id number] ####[facility] ([facility])[address] [place] [address] Monocytes/100 WBC (Bld) 9.2 % Normal 5.0-12.[address] [facility] Comment on above: Performed By: #### L [id number] ####[facility] ([facility])[address] [place] [address] Neutrophils (Bld) [#/Vol] 7.72 10*3/uL High 1.60-7.[address] [facility] Comment on above: Performed By: #### L [id number] ####[facility] ([facility])[address] [place] [address] Neutrophils/100 WBC (Bld) 75.0 % High 40.0-72.[address] [facility] Comment on above: Performed By: #### L [id number] ####[facility] ([facility] [place] [address] NRBC (PER 100 WBCS) BY AUTOMATED COUNT 0.0 % Normal [address] [facility] Comment on above: Performed By: #### L [id number] ####[facility] ([facility])[address] [place] [address] PLATELETS (10*3/UL) IN BLOOD AUTOMATED COUNT 209 10*3/uL Normal 150-[address] [facility] Comment on above: Performed By: #### L [id number] ####[facility] ([facility] [place] [address] RBC (Bld) [#/Vol] 5.49 10*6/uL Normal 4.20-5.70 [facility] Comment on above: Performed By: #### L [id number] ####[facility] ([facility])[address] [place] [address] WBC (Bld) [#/Vol] 10.30 10*3/uL Normal 4.00-10.60 [facility] Comment on above: Performed By: #### L [id number] ####[facility] ([facility])[address] [place] [address] MAGNESIUMon 08-20-2024 Magnesium [Mass/Vol] 1.9 mg/dL Normal 1.9-2.7 [facility] Comment on above: Performed By: #### L [id number] ####[facility] ([facility])[address] [place] [address] PHOSPHORUSon 08-20-2024 Magnesium [Mass/Vol] 2.1 mg/dL Low 2.5-5.0 [facility] Comment on above: Performed By: #### L [id number] ####[facility] ([facility])[address] [place] [address] POCT GLUCOSE METER UNSOLICIT ED RESULTSon 08-20-2024 Glucose [Mass/Vol] 268 mg/dL High 70-105 [facility] Comment on above: Order Comment: Waive d Testing in the ED is performed under the ED CLIA certificate #[id number]. Result Comment: [email or web address] Performed By: #### L [id number] ####[facility] ([facility])[address] [place] [address] 30on 08-19-2024 [address] [facility] [address] [facility] ANTI-XA (HEPARIN LEVEL)on HEPARIN UNFRACTIONATED (U/ML) IN PPP BY CHROMOGENIC METHOD 0.41 IU/mL Normal 0.3-0.[address] [facility] Comment on above: Result Comment: Onward roxaban and Apixaban will interfere with the anti Xa assay used to monitor UFH and LMWH. Performed By: #### L [id number] ####[facility] ([facility])[address] [place] [address] BASIC METABOLIC PANELon 01-3 0 Anion gap [Moles/Vol] 8 mmol/L Normal 7-20 [facility] Comment on above: Performed By: #### L [id number] ####[facility] ([facility])[address] [place] [address] Calcium [Mass/Vol] 8.9 mg/dL Normal 8.6-10.3 [facility] Comment on above: Performed By: #### L [id number] ####[facility] ([facility] [place] [address] Chloride [Moles/Vol] 99 mmol/L Normal 98-107 [facility] Comment on above: Performed By: #### L [id number] ####[facility] ([facility])[address] [place] [address] CO2 [Moles/Vol] 37 mmol/L High 21-31 [facility] Comment on above: Performed By: #### L [id number] ####[facility] ([facility] [place] [address] Creatinine [Mass/Vol] 1.00 mg/dL Normal 0.70-1.30 [facility] Comment on above: Performed By: #### L [id number] ####[facility] ([facility])[address] [place] [address] GLOMERULAR FILTRATION RATE ML/MIN/1.73 SQ M.PREDICTED 83.5 mL/min/1.73m*2 Normal >60.0 [facility] Comment on above: Result Comment: The [facility]???s estimated glomerular filtration rate (eGFR) will [...] of individuals. Performed By: #### L [id number] ####[facility] ([facility])[address] [place] [address] Glucose [Mass/Vol] 219 mg/dL High 70-100 [facility] Comment on above: Performed By: #### L [id number] ####[facility] ([facility])[address] [place] [address] Potassium [Moles/Vol] 3.9 mmol/L Normal 3.5-5.1 [facility] Comment on above: Performed By: #### L [id number] ####[facility] ([facility])[address] [place] [address] Sodium [Moles/Vol] 140 mmol/L Normal 136-145 [facility] Comment on above: Performed By: #### L [id number] ####[facility] ([facility])[address] [place] [address] Urea nitrogen [Mass/Vol] 28 mg/dL High 7-[address] [facility] Comment on above: Performed By: #### L [id number] ####[facility] ([facility])[address] [place] [address] UREA NITROGEN/CREATININE (MASS RATIO) IN SER/PLAS 28.[address] [facility] Comment on above: Performed By: #### L [id number] ####[facility] ([facility])[address] [place] [address] CBC WITH AUTO DIFFERENTIALon 08-19-2024 Basophils (Bld) [#/Vol] 0.04 10*3/uL Normal 0.00-0.[address] [facility] Comment on above: Performed By: #### L [id number] ####[facility] ([facility] [place] [address] Basophils/100 WBC (Bld) 0.4 % Normal 0.0-1.[address] [facility] Comment on above: Performed By: #### L [id number] ####[facility] ([facility])[address] [place] [address] Eosinophils (Bld) [#/Vol] 0.62 10*3/uL High 0.00-0.[address] [facility] Comment on above: Performed By: #### L [id number] ####[facility] ([facility])[address] [place] [address] Eosinophils/100 WBC (Bld) 6.7 % High 0.0-6.[address] [facility] Comment on above: Performed By: #### L [id number] ####[facility] ([facility])[address] [place] [address] Erythrocyte distribution width (RBC) [Ratio] 15.4 % High 11.5-15.[address] [facility] Comment on above: Performed By: #### L [id number] ####[facility] ([facility])[address] [place] [address] ERYTHROCYTE MEAN CORPUSCULAR HEMOGLOBIN CONCENTRATION (G/DL) BY AUTOMATED 29.8 g/dL Low 32.0-35.[address] [facility] Comment on above: Performed By: #### L [id number] ####[facility] ([facility])[address] [place] [address] Hematocrit (Bld) [Volume fraction] 49.4 % Normal 39.0-55.[address] [facility] Comment on above: Performed By: #### L [id number] ####[facility] ([facility])[address] [place] [address] Hemoglobin (Bld) [Mass/Vol] 14.7 g/dL Normal 13.0-17.[address] [facility] Comment on above: Performed By: #### L [id number] ####[facility] ([facility])[address] [place] [address] Immature granulocytes (Bld) [#/Vol] 0.06 10*3/uL Normal 0.00-0.[address] [facility] Comment on above: Performed By: #### L [id number] ####[facility] ([facility])[address] [place] [address] Immature granulocytes/100 WBC (Bld) 0.7 % Normal 0.0-1.[address] [facility] Comment on above: Performed By: #### L [id number] ####[facility] ([facility] [place] [address] Lymphocytes (Bld) [#/Vol] 0.86 10*3/uL Low 1.20-4.[address] [facility] Comment on above: Performed By: #### L [id number] ####[facility] ([facility])[address] [place] [address] Lymphocytes/100 WBC (Bld) 9.3 % Low 20.0-45.[address] [facility] Comment on above: Performed By: #### L [id number] ####[facility] ([facility])[address] [place] [address] MCH (RBC) [Entitic mass] 28.9 pg Normal 27.0-33.[address] [facility] Comment on above: Performed By: #### L [id number] ####[facility] ([facility])[address] [place] [address] MCV (RBC) [Entitic vol] 97.2 fL Normal 82.0-98.[address] [facility] Comment on above: Performed By: #### L [id number] ####[facility] ([facility])[address] [place] [address] Monocytes (Bld) [#/Vol] 0.94 10*3/uL Normal 0.10-1.[address] [facility] Comment on above: Performed By: #### L [id number] ####[facility] ([facility])[address] [place] [address] Monocytes/100 WBC (Bld) 10.2 % Normal 5.0-12.[address] [facility] Comment on above: Performed By: #### L [id number] ####[facility] ([facility])[address] [place] [address] Neutrophils (Bld) [#/Vol] 6.68 10*3/uL Normal 1.60-7.[address] [facility] Comment on above: Performed By: #### L [id number] ####[facility] ([facility])[address] [place] [place] [address] Neutrophils/100 WBC (Bld) 72.7 % High 40.0-72.[address] [facility] Comment on above: Performed By: #### L [id number] ####[facility] ([facility])[address] [place] [address] NRBC (PER 100 WBCS) BY AUTOMATED COUNT 0.0 % Normal [address] [facility] Comment on above: Performed By: #### L [id number] ####[facility] ([facility])[address] [place] [address] PLATELETS (10*3/UL) IN BLOOD AUTOMATED COUNT 198 10*3/uL Normal 150-[address] [facility] Comment on above: Performed By: #### L [id number] ####[facility] ([facility])[address] [place] [address] RBC (Bld) [#/Vol] 5.08 10*6/uL Normal 4.20-5.70 [facility] Comment on above: Performed By: #### L [id number] ####[facility] ([facility])[address] [place] [address] WBC (Bld) [#/Vol] 9.20 10*3/uL Normal 4.00-10.60 [facility] Comment on above: Performed By: #### L [id number] ####[facility] ([facility] [place] [address] CONSULTon 08-19-2024 CONSULT Normal [facility] MAGNESIUMon 08-19-2024 Magnesium [Mass/Vol] 1.9 mg/dL Normal 1.9-2.7 [facility] Comment on above: Performed By: #### L [id number] ####[facility] ([facility])[address] [place] [address] PHOSPHORUSon 08-19-2024 Magnesium [Mass/Vol] 2.9 mg/dL Normal 2.5-5.0 [facility] Comment on above: Performed By: #### L [id number] ####[facility] ([facility])[address] [place] [address] POCT GLUCOSE METER UNSOLICIT ED RESULTSon 08-19-2024 Glucose [Mass/Vol] 239 mg/dL High 70-105 [facility] Comment on above: Order Comment: Waive d Testing in the ED is performed under the ED CLIA certificate #[id number]. Result Comment: [email or web address] Performed By: #### L [id number] ####[facility] ([facility])[address] [facility] [address] Glucose [Mass/Vol] 251 mg/dL High 70-105 [facility] Comment on above: Order Comment: Waive d Testing in the ED is performed under the ED CLIA certificate #[id number]. Result Comment: [email or web address] Performed By: #### L [id number] ####[facility] ([facility])[address] [facility] [place] [address] Glucose [Mass/Vol] 185 mg/dL High 70-105 [facility] Comment on above: Order Comment: Waive d Testing in the ED is performed under the ED CLIA certificate #[id number]. Result Comment: [email or web address] Performed By: #### L [id number] ####[facility] ([facility])[address] [place] [address] TRIGLYCERIDESon 08-19-2024 FASTING? UNKNOWN Normal [facility] Comment on above: Performed By: #### L [id number] ####[facility] ([facility])[address] [place] [address] Magnesium [Mass/Vol] 192 mg/dL High 40-149 [facility] Comment on above: Result Comment: TRIG LYCERIDE REFERENCE RANGE:20 YEARS AND OLDER CARDIOVASCULAR RISKLESS THAN 150 mg/dL LOW [id number] TO 199 mg/dL BORDERLINE [id number] mg/dL AND GREATER HIGH RISK Performed By: #### L [id number] ####[facility] ([facility])[address] [place] [address] ANTI-XA (HEPARIN LEVEL)on HEPARIN UNFRACTIONATED (U/ML) IN PPP BY CHROMOGENIC METHOD 0.50 IU/mL Normal 0.3-0.[address] [facility] Comment on above: Result Comment: Tatyana roxaban and Apixaban will interfere with the anti Xa assay used to monitor UFH and LMWH. Performed By: #### L [id number] ####[facility] ([facility])[address] [place] [address] HEPARIN UNFRACTIONATED (U/ML) IN PPP BY CHROMOGENIC METHOD 0.60 IU/mL Normal 0.3-0.[address] [facility] Comment on above: Result Comment: Onward roxaban and Apixaban will interfere with the anti Xa assay used to monitor UFH and LMWH. Performed By: #### L [id number] ####[facility] ([facility])[address] [place] [address] BASIC METABOLIC PANELon 07-22 Anion gap [Moles/Vol] 8 mmol/L Normal 7-20 [facility] Comment on above: Performed By: #### L [id number] ####[facility] ([facility])[address] [place] [address] Calcium [Mass/Vol] 8.7 mg/dL Normal 8.6-10.3 [facility] Comment on above: Performed By: #### L [id number] ####[facility] ([facility])[address] [place] [address] Chloride [Moles/Vol] 98 mmol/L Normal 98-107 [facility] Comment on above: Performed By: #### L [id number] ####[facility] ([facility])[address] [place] [address] CO2 [Moles/Vol] 41 mmol/L Critically high 21-31 [facility] Comment on above: Performed By: #### L [id number] ####[facility] ([facility])[address] [place] [address] Creatinine [Mass/Vol] 1.05 mg/dL Normal 0.70-1.30 [facility] Comment on above: Performed By: #### L [id number] ####[facility] ([facility])[address] [place] [address] GLOMERULAR FILTRATION RATE ML/MIN/1.73 SQ M.PREDICTED 78.8 mL/min/1.73m*2 Normal >60.0 [facility] Comment on above: Result Comment: The [facility]???s estimated glomerular filtration rate (eGFR) will [...] of individuals. Performed By: #### L [id number] ####[facility] ([facility])[address] [place] [address] Glucose [Mass/Vol] 201 mg/dL High 70-100 [facility] Comment on above: Performed By: #### L [id number] ####[facility] ([facility])[address] [place] [address] Potassium [Moles/Vol] 3.7 mmol/L Normal 3.5-5.1 [facility] Comment on above: Performed By: #### L [id number] ####[facility] ([facility])[address] [place] [address] Sodium [Moles/Vol] 143 mmol/L Normal 136-145 [facility] Comment on above: Performed By: #### L [id number] ####[facility] ([facility])[address] [place] [address] Urea nitrogen [Mass/Vol] 25 mg/dL Normal 7-[address] [facility] Comment on above: Performed By: #### L [id number] ####[facility] ([facility] [place] [address] UREA NITROGEN/CREATININE (MASS RATIO) IN SER/PLAS 23.[address] [facility] Comment on above: Performed By: #### L [id number] ####[facility] ([facility] [place] [address] CBC WITH AUTO DIFFERENTIALon 08-18-2024 Basophils (Bld) [#/Vol] 0.03 10*3/uL Normal 0.00-0.[address] [facility] Comment on above: Performed By: #### L [id number] ####[facility] ([facility])[address] [place] [address] Basophils/100 WBC (Bld) 0.3 % Normal 0.0-1.[address] [facility] Comment on above: Performed By: #### L [id number] ####[facility] ([facility])[address] [place] [address] Eosinophils (Bld) [#/Vol] 0.45 10*3/uL Normal 0.00-0.[address] [facility] Comment on above: Performed By: #### L [id number] ####[facility] ([facility])[address] [place] [address] Eosinophils/100 WBC (Bld) 5.0 % Normal 0.0-6.[address] [facility] Comment on above: Performed By: #### L [id number] ####[facility] ([facility])[address] [place] [address] Erythrocyte distribution width (RBC) [Ratio] 15.5 % High 11.5-15.[address] [facility] Comment on above: Performed By: #### L [id number] ####[facility] ([facility])[address] [place] [address] ERYTHROCYTE MEAN CORPUSCULAR HEMOGLOBIN CONCENTRATION (G/DL) BY AUTOMATED 29.7 g/dL Low 32.0-35.[address] [facility] Comment on above: Performed By: #### L [id number] ####[facility] ([facility])[address] [place] [address] Hematocrit (Bld) [Volume fraction] 49.5 % Normal 39.0-55.[address] [facility] Comment on above: Performed By: #### L [id number] ####[facility] ([facility])[address] [place] [address] Hemoglobin (Bld) [Mass/Vol] 14.7 g/dL Normal 13.0-17.[address] [facility] Comment on above: Performed By: #### L [id number] ####[facility] ([facility])[address] [place] [address] Immature granulocytes (Bld) [#/Vol] 0.05 10*3/uL Normal 0.00-0.[address] [facility] Comment on above: Performed By: #### L [id number] ####[facility] ([facility])[address] [place] [address] Immature granulocytes/100 WBC (Bld) 0.6 % Normal 0.0-1.[address] [facility] Comment on above: Performed By: #### L [id number] ####[facility] ([facility])[address] [place] [address] Lymphocytes (Bld) [#/Vol] 0.93 10*3/uL Low 1.20-4.[address] [facility] Comment on above: Performed By: #### L [id number] ####[facility] ([facility])[address] [place] [address] Lymphocytes/100 WBC (Bld) 10.4 % Low 20.0-45.[address] [facility] Comment on above: Performed By: #### L [id number] ####[facility] ([facility])[address] [place] [address] MCH (RBC) [Entitic mass] 29.2 pg Normal 27.0-33.[address] [facility] Comment on above: Performed By: #### L [id number] ####[facility] ([facility])[address] [place] [address] MCV (RBC) [Entitic vol] 98.2 fL High 82.0-98.[address] [facility] Comment on above: Performed By: #### L [id number] ####[facility] ([facility])[address] [place] [address] Monocytes (Bld) [#/Vol] 1.06 10*3/uL High 0.10-1.[address] [facility] Comment on above: Performed By: #### L [id number] ####[facility] ([facility] [place] [address] Monocytes/100 WBC (Bld) 11.9 % Normal 5.0-12.[address] [facility] Comment on above: Performed By: #### L [id number] ####[facility] ([facility])[address] [place] [address] Neutrophils (Bld) [#/Vol] 6.41 10*3/uL Normal 1.60-7.[address] [facility] Comment on above: Performed By: #### L [id number] ####[facility] ([facility])[address] [place] [address] Neutrophils/100 WBC (Bld) 71.8 % Normal 40.0-72.[address] [facility] Comment on above: Performed By: #### L [id number] ####[facility] ([facility])[address] [place] [address] NRBC (PER 100 WBCS) BY AUTOMATED COUNT 0.0 % Normal [address] [facility] Comment on above: Performed By: #### L [id number] ####[facility] ([facility])[address] [place] [address] PLATELETS (10*3/UL) IN BLOOD AUTOMATED COUNT 208 10*3/uL Normal 150-[address] [facility] Comment on above: Performed By: #### L [id number] ####[facility] ([facility])[address] [place] [address] RBC (Bld) [#/Vol] 5.04 10*6/uL Normal 4.20-5.70 [facility] Comment on above: Performed By: #### L [id number] ####[facility] ([facility])[address] [place] [address] WBC (Bld) [#/Vol] 8.93 10*3/uL Normal 4.00-10.60 [facility] Comment on above: Performed By: #### L [id number] ####[facility] ([facility])[address] [place] [address] CONSULTon 08-18-2024 CONSULT Normal [facility] MAGNESIUMon 08-18-2024 Magnesium [Mass/Vol] 2.1 mg/dL Normal 1.9-2.7 [facility] Comment on above: Performed By: #### L [id number] ####[facility] ([facility])[address] [place] [address] PHOSPHORUSon 08-18-2024 Magnesium [Mass/Vol] 2.9 mg/dL Normal 2.5-5.0 [facility] Comment on above: Performed By: #### L [id number] ####[facility] ([facility])[address] [place] [address] POCT GLUCOSE METER UNSOLICIT ED RESULTSon 08-18-2024 Glucose [Mass/Vol] 194 mg/dL High 70-105 [facility] Comment on above: Order Comment: Waive d Testing in the ED is performed under the ED CLIA certificate #[id number]. Result Comment: alexandru enz6 Performed By: #### L [id number] ####[facility] ([facility])[address] [place] [address] Glucose [Mass/Vol] 183 mg/dL High 70-105 [facility] Comment on above: Order Comment: Waive d Testing in the ED is performed under the ED CLIA certificate #[id number]. Result Comment: ezab ors2 Performed By: #### L [id number] ####[facility] ([facility])[address] [place] [address] Glucose [Mass/Vol] 173 mg/dL High 70-105 [facility] Comment on above: Order Comment: Waive d Testing in the ED is performed under the ED CLIA certificate #[id number]. Result Comment: justinab ors2 Performed By: #### L [id number] ####[facility] ([facility])[address] [place] [address] Glucose [Mass/Vol] 200 mg/dL High 70-105 [facility] Comment on above: Order Comment: Waive d Testing in the ED is performed under the ED CLIA certificate #[id number]. Result Comment: alexandru enz6 Performed By: #### L [id number] ####[facility] ([facility])[address] [place] [address] SPUTUM CULTUREon 08-18-2024 Clindamycin [Susc] <=0.5 Susceptible [facility] Comment on above: Performed By: #### L [id number] ####[facility] ([facility])[address] [place] [address] DAPTOmycin [Susc] <=1 Susceptible [facility] Comment on above: Performed By: #### L [id number] ####[facility] ([facility])[address] [place] [address] Linezolid [Susc] <=1 Susceptible [facility] Comment on above: Performed By: #### L [id number] ####[facility] ([facility])[address] [place] [address] Oxacillin [Susc] >2 Resistant [facility] Comment on above: Performed By: #### L [id number] ####[facility] ([facility])[address] [place] [address] Tetracycline [Susc] <=0.5 Susceptible [facility] Comment on above: Performed By: #### L [id number] ####[facility] ([facility])[address] [place] [address] Trimethoprim+Sulfameth oxazole [Susc] <=0.5/9.[address] [facility] Comment on above: Performed By: #### L [id number] ####[facility] ([facility])[address] [place] [address] Vancomycin [Susc] <=0.5 Susceptible [facility] Comment on above: Performed By: #### L [id number] ####[facility] ([facility] [place] [address] TRIGLYCERIDESon 08-18-2024 FASTING? unknown Normal [facility] Comment on above: Performed By: #### L [id number] ####[facility] ([facility])[address] [facility] [address] Magnesium [Mass/Vol] 154 mg/dL High 40-149 [facility] Comment on above: Result Comment: TRIG LYCERIDE REFERENCE RANGE:20 YEARS AND OLDER CARDIOVASCULAR RISKLESS THAN 150 mg/dL LOW [id number] TO 199 mg/dL BORDERLINE [id number] mg/dL AND GREATER HIGH RISK Performed By: #### L [id number] ####[facility] ([facility] [place] [address] 30on 08-17-[address] [facility] ANTI-XA (HEPARIN LEVEL)on HEPARIN UNFRACTIONATED (U/ML) IN PPP BY CHROMOGENIC METHOD 0.86 IU/mL High 0.3-0.[address] [facility] Comment on above: Result Comment: Tatyana roxaban and Apixaban will interfere with the anti Xa assay used to monitor UFH and LMWH. Performed By: #### L [id number] ####[facility] ([facility])[address] [facility] [address] HEPARIN UNFRACTIONATED (U/ML) IN PPP BY CHROMOGENIC METHOD >1.00 Critically high 0.3-0.[address] [facility] Comment on above: Result Comment: Onward roxaban and Apixaban will interfere with the anti Xa assay used to monitor UFH and LMWH. Performed By: #### L [id number] ####[facility] ([facility])[address] [facility] [address] HEPARIN UNFRACTIONATED (U/ML) IN PPP BY CHROMOGENIC METHOD >1.00 Critically high 0.3-0.[address] [facility] Comment on above: Performed By: #### L [id number] ####[facility] ([facility])[address] [place] [address] APTTon 08-17-2024 ACTIVATED PARTIAL THROMBOPLASTIN TIME IN PPP BY COAGULATION ASSAY 99.6 Seconds High 25.0-35.[address] [facility] Comment on above: Result Comment: Clin ical significance of the APTT is questionable in the presence of heparin. Performed By: #### L [id number] ####[facility] ([facility])[address] [facility] [address] ACTIVATED PARTIAL THROMBOPLASTIN TIME IN PPP BY COAGULATION ASSAY 98.9 Seconds High 25.0-35.[address] [facility] Comment on above: Result Comment: Clin ical significance of the APTT is questionable in the presence of heparin. Performed By: #### L [id number] ####[facility] ([facility])[address] [place] [address] B-TYPE NATRIURETIC PEPTIDEon 08-17-2024 Natriuretic peptide B (Bld) [Mass/Vol] 75 pg/mL Normal 0-[address] [facility] Comment on above: Performed By: #### L [id number] ####[facility] ([facility])[address] [place] [address] BASIC METABOLIC PANELon 07-22 Anion gap [Moles/Vol] 9 mmol/L Normal 7-20 [facility] Comment on above: Performed By: #### L [id number] ####[facility] ([facility])[address] [facility] [address] Calcium [Mass/Vol] 8.8 mg/dL Normal 8.6-10.3 [facility] Comment on above: Performed By: #### L [id number] ####[facility] ([facility])[address] [facility] [address] Chloride [Moles/Vol] 97 mmol/L Low 98-107 [facility] Comment on above: Performed By: #### L [id number] ####[facility] ([facility])[address] [place] [address] CO2 [Moles/Vol] 45 mmol/L Critically high 21-31 [facility] Comment on above: Performed By: #### L [id number] ####[facility] ([facility])[address] [place] [address] Creatinine [Mass/Vol] 0.93 mg/dL Normal 0.70-1.30 [facility] Comment on above: Performed By: #### L [id number] ####[facility] ([facility])[address] [place] [address] GLOMERULAR FILTRATION RATE ML/MIN/1.73 SQ M.PREDICTED 91.1 mL/min/1.73m*2 Normal >60.0 [facility] Comment on above: Result Comment: [facility]???s estimated glomerular filtration rate (eGFR) will [...] of individuals. Performed By: #### L [id number] ####[facility] ([facility])[address] [place] [address] Glucose [Mass/Vol] 190 mg/dL High 70-100 [facility] Comment on above: Performed By: #### L [id number] ####[facility] ([facility] [place] [address] Potassium [Moles/Vol] 3.5 mmol/L Normal 3.5-5.1 [facility] Comment on above: Performed By: #### L [id number] ####[facility] ([facility])[address] [place] [address] Sodium [Moles/Vol] 147 mmol/L High 136-145 [facility] Comment on above: Performed By: #### L [id number] ####[facility] ([facility])[address] [place] [address] Urea nitrogen [Mass/Vol] 28 mg/dL High 7-[address] [facility] Comment on above: Performed By: #### L [id number] ####[facility] ([facility])[address] [place] [address] UREA NITROGEN/CREATININE (MASS RATIO) IN SER/PLAS 30.[address] [facility] Comment on above: Performed By: #### L [id number] ####[facility] ([facility])[address] [place] [address] CBC WITH AUTO DIFFERENTIALon 08-17-2024 Basophils (Bld) [#/Vol] 0.02 10*3/uL Normal 0.00-0.[address] [facility] Comment on above: Performed By: #### L [id number] ####[facility] ([facility])[address] [place] [address] Basophils/100 WBC (Bld) 0.2 % Normal 0.0-1.[address] [facility] Comment on above: Performed By: #### L [id number] ####[facility] ([facility])[address] [place] [address] Eosinophils (Bld) [#/Vol] 0.20 10*3/uL Normal 0.00-0.[address] [facility] Comment on above: Performed By: #### L [id number] ####[facility] ([facility])[address] [place] [address] Eosinophils/100 WBC (Bld) 2.4 % Normal 0.0-6.[address] [facility] Comment on above: Performed By: #### L [id number] ####[facility] ([facility])[address] [place] [address] Erythrocyte distribution width (RBC) [Ratio] 15.3 % High 11.5-15.[address] [facility] Comment on above: Performed By: #### L [id number] ####[facility] ([facility])[address] [place] [address] ERYTHROCYTE MEAN CORPUSCULAR HEMOGLOBIN CONCENTRATION (G/DL) BY AUTOMATED 30.0 g/dL Low 32.0-35.[address] [facility] Comment on above: Performed By: #### L [id number] ####[facility] ([facility])[address] [place] [address] Hematocrit (Bld) [Volume fraction] 49.7 % Normal 39.0-55.[address] [facility] Comment on above: Performed By: #### L [id number] ####[facility] ([facility])[address] [place] [address] Hemoglobin (Bld) [Mass/Vol] 14.9 g/dL Normal 13.0-17.[address] [facility] Comment on above: Performed By: #### L [id number] ####[facility] ([facility])[address] [place] [address] Immature granulocytes (Bld) [#/Vol] 0.04 10*3/uL Normal 0.00-0.[address] [facility] Comment on above: Performed By: #### L [id number] ####[facility] ([facility])[address] [place] [address] Immature granulocytes/100 WBC (Bld) 0.5 % Normal 0.0-1.[address] [facility] Comment on above: Performed By: #### L [id number] ####[facility] ([facility])[address] [place] [address] Lymphocytes (Bld) [#/Vol] 0.87 10*3/uL Low 1.20-4.[address] [facility] Comment on above: Performed By: #### L [id number] ####[facility] ([facility])[address] [place] [address] Lymphocytes/100 WBC (Bld) 10.5 % Low 20.0-45.[address] [facility] Comment on above: Performed By: #### L [id number] ####[facility] ([facility])[address] [place] [address] MCH (RBC) [Entitic mass] 29.0 pg Normal 27.0-33.[address] [facility] Comment on above: Performed By: #### L [id number] ####[facility] ([facility])[address] [place] [address] MCV (RBC) [Entitic vol] 96.9 fL Normal 82.0-98.[address] [facility] Comment on above: Performed By: #### L [id number] ####[facility] ([facility])[address] [place] [address] Monocytes (Bld) [#/Vol] 1.21 10*3/uL High 0.10-1.[address] [facility] Comment on above: Performed By: #### L [id number] ####[facility] ([facility])[address] [place] [address] Monocytes/100 WBC (Bld) 14.6 % High 5.0-12.[address] [facility] Comment on above: Performed By: #### L [id number] ####[facility] ([facility])[address] [place] [address] Neutrophils (Bld) [#/Vol] 5.97 10*3/uL Normal 1.60-7.[address] [facility] Comment on above: Performed By: #### L [id number] ####[facility] ([facility])[address] [place] [address] Neutrophils/100 WBC (Bld) 71.8 % Normal 40.0-72.[address] [facility] Comment on above: Performed By: #### L [id number] ####[facility] ([facility])[address] [place] [address] NRBC (PER 100 WBCS) BY AUTOMATED COUNT 0.0 % Normal [address] [facility] Comment on above: Performed By: #### L [id number] ####[facility] ([facility])[address] [place] [address] PLATELETS (10*3/UL) IN BLOOD AUTOMATED COUNT 210 10*3/uL Normal 150-[address] [facility] Comment on above: Performed By: #### L [id number] ####[facility] ([facility])[address] [place] [address] RBC (Bld) [#/Vol] 5.13 10*6/uL Normal 4.20-5.70 [facility] Comment on above: Performed By: #### L [id number] ####[facility] ([facility])[address] [place] [address] WBC (Bld) [#/Vol] 8.31 10*3/uL Normal 4.00-10.60 [facility] Comment on above: Performed By: #### L [id number] ####[facility] ([facility])[address] [place] [address] MAGNESIUMon 08-17-2024 Magnesium [Mass/Vol] 2.2 mg/dL Normal 1.9-2.7 [facility] Comment on above: Performed By: #### L [id number] ####[facility] ([facility])[address] [place] [address] Magnesium [Mass/Vol] 1.8 mg/dL Low 1.9-2.7 [facility] Comment on above: Performed By: #### L [id number] ####[facility] ([facility])[address] [place] [address] Magnesium [Mass/Vol] 1.6 mg/dL Low 1.9-2.7 [facility] Comment on above: Performed By: #### L [id number] ####[facility] [place] [address] PHOSPHORUSon 08-17-2024 Magnesium [Mass/Vol] 3.2 mg/dL Normal 2.5-5.0 [facility] Comment on above: Performed By: #### L [id number] ####[facility] [place] [address] POCT GLUCOSE METER UNSOLICIT ED RESULTSon 08-17-2024 Glucose [Mass/Vol] 184 mg/dL High 70-105 [facility] Comment on above: Order Comment: Waive d Testing in the ED is performed under the ED CLIA certificate #[id number]. Result Comment: umesh sheikh Performed By: #### L [id number] ####[facility] ([facility])[address] [place] [address] Glucose [Mass/Vol] 191 mg/dL High 70-105 [facility] Comment on above: Order Comment: Waive d Testing in the ED is performed under the ED CLIA certificate #[id number]. Result Comment: umesh sheikh Performed By: #### L [id number] ####[facility] ([facility])[address] [place] [address] POTASSIUMon 08-17-2024 Potassium [Moles/Vol] 3.8 mmol/L Normal 3.5-5.1 [facility] Comment on above: Performed By: #### L [id number] ####[facility] ([facility])[address] [place] [address] Potassium [Moles/Vol] 3.7 mmol/L Normal 3.5-5.1 [facility] Comment on above: Performed By: #### L [id number] ####[facility] ([facility])[address] [place] [address] PROTIME-INRon 08-17-2024 INR IN PPP BY COAGULATION ASSAY 1.19 High 0.90-1.[address] [facility] Comment on above: Result Comment: ACCC [...] CHEST 1995;[id number]. Performed By: #### L [id number] ####[facility] [employer])[address] [place] [address] PROTHROMBIN TIME (PT) IN PPP BY COAGULATION ASSAY 15.0 Seconds High 12.3-14.[address] [facility] Comment on above: Performed By: #### L [id number] ####[facility] ([facility])[address] [place] [address] INR IN PPP BY COAGULATION ASSAY 1.19 High 0.90-1.[address] [facility] Comment on above: Result Comment: ACCC [...] CHEST 1995;[id number]. Performed By: #### L [id number] ####[facility] ([facility])[address] [place] [address] PROTHROMBIN TIME (PT) IN PPP BY COAGULATION ASSAY 15.1 Seconds High 12.3-14.[address] [facility] Comment on above: Performed By: #### L [id number] ####[facility] ([facility])[address] [place] [address] TRIGLYCERIDESon 08-17-2024 FASTING? Unknown Normal [facility] Comment on above: Performed By: #### L [id number] ####[facility] ([facility])[address] [place] [address] Magnesium [Mass/Vol] 119 mg/dL Normal 40-149 [facility] Comment on above: Result Comment: TRIG LYCERIDE REFERENCE RANGE:20 YEARS AND OLDER CARDIOVASCULAR RISKLESS THAN 150 mg/dL LOW [id number] TO 199 mg/dL BORDERLINE [id number] mg/dL AND GREATER HIGH RISK Performed By: #### L [id number] ####[facility] ([facility])[address] [place] [address] TROPONIN Ion 08-17-2024 Troponin I.cardiac [Mass/Vol] 0.04 ng/mL Normal 0.00-0.[address] [facility] Comment on above: Performed By: #### L [id number] ####[facility] ([facility])[address] [place] [address] Troponin I.cardiac [Mass/Vol] 0.04 ng/mL Normal 0.00-0.[address] [facility] Comment on above: Performed By: #### L [id number] ####[facility] ([facility])[address] [place] [address] VANCOMYCIN, TROUGHon 025 VANCOMYCIN (UG/ML) IN SER/PLAS - TROUGH 23.6 ug/mL Critically high 5.0-20.[address] [facility] Comment on above: Performed By: #### L [id number] ####[facility] ([facility])[address] [place] [address] BASIC METABOLIC PANELon 07-22 Anion gap [Moles/Vol] 11 mmol/L Normal 7-20 [facility] Comment on above: Performed By: #### L [id number] ####[facility] ([facility])[address] [place] [address] Calcium [Mass/Vol] 8.9 mg/dL Normal 8.6-10.3 [facility] Comment on above: Performed By: #### L [id number] ####[facility] ([facility])[address] [place] [address] Chloride [Moles/Vol] 99 mmol/L Normal 98-107 [facility] Comment on above: Performed By: #### L [id number] ####[facility] ([facility])[address] [place] [address] CO2 [Moles/Vol] 38 mmol/L High 21-31 [facility] Comment on above: Performed By: #### L [id number] ####[facility] ([facility])[address] [place] [address] Creatinine [Mass/Vol] 1.10 mg/dL Normal 0.70-1.30 [facility] Comment on above: Performed By: #### L [id number] ####[facility] ([facility])[address] [place] [address] GLOMERULAR FILTRATION RATE ML/MIN/1.73 SQ M.PREDICTED 74.5 mL/min/1.73m*2 Normal >60.0 [facility] Comment on above: Result Comment: The [facility]???s estimated glomerular filtration rate (eGFR) will [...] of individuals. Performed By: #### L [id number] ####[facility] ([facility])[address] [place] [address] Glucose [Mass/Vol] 202 mg/dL High 70-100 [facility] Comment on above: Performed By: #### L [id number] ####[facility] ([facility] [place] [address] Potassium [Moles/Vol] 3.3 mmol/L Low 3.5-5.1 [facility] Comment on above: Performed By: #### L [id number] ####[facility] ([facility] [place] [address] Sodium [Moles/Vol] 145 mmol/L Normal 136-145 [facility] Comment on above: Performed By: #### L [id number] ####[facility] ([facility])[address] [facility] [address] Urea nitrogen [Mass/Vol] 38 mg/dL High 7-[address] [facility] Comment on above: Performed By: #### L [id number] ####[facility] ([facility])[address] [place] [address] UREA NITROGEN/CREATININE (MASS RATIO) IN SER/PLAS 34.[address] [facility] Comment on above: Performed By: #### L [id number] ####[facility] ([facility])[address] [place] [address] CALCIUM, IONIZEDon CALCIUM IONIZED (MMOL/L) IN BLOOD Normal [facility] Comment on above: Result Comment: C^In calculable Performed By: #### C ALCIUM, IONIZED ####[facility] [id number] [place] [address] [place] CBC WITH AUTO DIFFERENTIALon 08-16-2024 Erythrocyte distribution width (RBC) [Ratio] 15.1 % High 11.5-15.[address] [facility] Comment on above: Performed By: #### L [id number] ####[facility] ([facility])[address] [facility] [address] ERYTHROCYTE MEAN CORPUSCULAR HEMOGLOBIN CONCENTRATION (G/DL) BY AUTOMATED 30.9 g/dL Low 32.0-35.[address] [facility] Comment on above: Performed By: #### L [id number] ####[facility] ([facility])[address] [place] [address] Hematocrit (Bld) [Volume fraction] 52.1 % Normal 39.0-55.[address] [facility] Comment on above: Performed By: #### L [id number] ####[facility] ([facility])[address] [place] [address] Hemoglobin (Bld) [Mass/Vol] 16.1 g/dL Normal 13.0-17.[address] [facility] Comment on above: Performed By: #### L [id number] ####[facility] ([facility])[address] [place] [address] MCH (RBC) [Entitic mass] 29.4 pg Normal 27.0-33.[address] [facility] Comment on above: Performed By: #### L [id number] ####[facility] ([facility])[address] [place] [address] MCV (RBC) [Entitic vol] 95.1 fL Normal 82.0-98.[address] [facility] Comment on above: Performed By: #### L [id number] ####[facility] ([facility])[address] [place] [address] NRBC (PER 100 WBCS) BY AUTOMATED COUNT 0.0 % Normal [address] [facility] Comment on above: Performed By: #### L [id number] ####[facility] ([facility])[address] [place] [address] PLATELETS (10*3/UL) IN BLOOD AUTOMATED COUNT 243 10*3/uL Normal 150-[address] [facility] Comment on above: Performed By: #### L [id number] ####[facility] ([facility])[address] [place] [address] RBC (Bld) [#/Vol] 5.48 10*6/uL Normal 4.20-5.70 [facility] Comment on above: Performed By: #### L [id number] ####[facility] ([facility])[address] [place] [address] WBC (Bld) [#/Vol] 9.57 10*3/uL Normal 4.00-10.60 [facility] Comment on above: Performed By: #### L [id number] ####[facility] ([facility])[address] [place] [address] CONSULTon 08-16-2024 CONSULT Normal [facility] CONSULT Normal [facility] CTA CHEST W IV CONTRASTon CTA CHEST W IV CONTRAST Invalid Interpretation Code [facility] MAGNESIUMon 08-16-2024 Magnesium [Mass/Vol] 1.9 mg/dL Normal 1.9-2.7 [facility] Comment on above: Performed By: #### L [id number] ####[facility] ([facility])[address] [place] [address] Magnesium [Mass/Vol] 1.7 mg/dL Low 1.9-2.7 [facility] Comment on above: Performed By: #### L [id number] ####[facility] ([facility])[address] [place] [address] MANUAL DIFFERENTIALon 2024 BASOPHILS (10*3/UL) IN BLOOD BY CALCULATION 0.02 10*3/uL Normal 0.00-0.[address] [facility] Comment on above: Performed By: #### L [id number] ####[facility] ([facility])[address] [place] [address] BASOPHILS/100 LEUKOCYTES IN BLOOD BY AUTOMATED COUNT 0.2 % Normal 0.0-1.[address] [facility] Comment on above: Performed By: #### L [id number] ####[facility] ([facility])[address] [place] [address] EOSINOPHILS (10*3/UL) IN BLOOD BY CALCULATION 0.10 10*3/uL Normal 0.00-0.[address] [facility] Comment on above: Performed By: #### L [id number] ####[facility] ([facility] [place] [address] EOSINOPHILS/100 LEUKOCYTES IN BLOOD BY AUTOMATED COUNT 1.0 % Normal 0.0-6.[address] [facility] Comment on above: Performed By: #### L [id number] ####[facility] ([facility])[address] [place] [address] IMMATURE GRANULOCYTES (10*3/UL) IN BLOOD BY CALCULATION 0.06 10*3/uL Normal 0.00-0.[address] [facility] Comment on above: Performed By: #### L [id number] ####[facility] ([facility])[address] [place] [address] IMMATURE GRANULOCYTES/100 LEUKOCYTES IN BLOOD BY AUTOMATED COUNT 0.6 % Normal 0.0-1.[address] [facility] Comment on above: Performed By: #### L [id number] ####[facility] ([facility])[address] [place] [address] LYMPHOCYTES (10*3/UL) IN BLOOD BY CALCULATION 0.73 10*3/uL Low 1.20-4.[address] [facility] Comment on above: Performed By: #### L [id number] ####[facility] ([facility])[address] [place] [address] LYMPHOCYTES/100 LEUKOCYTES IN BLOOD BY AUTOMATED COUNT 7.6 % Low 20.0-45.[address] [facility] Comment on above: Performed By: #### L [id number] ####[facility] ([facility])[address] [place] [address] MONOCYTES (10*3/UL) IN BLOOD BY CALCUATION 1.52 10*3/uL High 0.10-1.00 [facility] Comment on above: Performed By: #### L [id number] ####[facility] ([facility])[address] [place] [address] MONOCYTES/100 LEUKOCYTES IN BLOOD BY AUTOMATED COUNT 15.9 % High 5.0-12.[address] [facility] Comment on above: Performed By: #### L [id number] ####[facility] ([facility])[address] [place] [address] NEUTROPHILS (10*3/UL) IN BLOOD BY CALCULATION 7.1 10*3/uL Normal 1.6-7.[address] [facility] Comment on above: Performed By: #### L [id number] ####[facility] ([facility])[address] [place] [address] NEUTROPHILS/100 LEUKOCYTES IN BLOOD BY AUTOMATED COUNT 74.7 % High 40.0-72.[address] [facility] Comment on above: Performed By: #### L [id number] ####[facility] ([facility])[address] [place] [address] PHOSPHORUSon 08-16-2024 Magnesium [Mass/Vol] 3.8 mg/dL Normal 2.5-5.0 [facility] Comment on above: Performed By: #### L [id number] ####[facility] ([facility])[address] [place] [address] Magnesium [Mass/Vol] 1.8 mg/dL Low 2.5-5.0 [facility] Comment on above: Performed By: #### L [id number] ####[facility] ([facility])[address] [place] [address] POCT GLUCOSE METER UNSOLICIT ED RESULTSon 08-16-2024 Glucose [Mass/Vol] 189 mg/dL High 70-105 [facility] Comment on above: Order Comment: Waive d Testing in the ED is performed under the ED CLIA certificate #[id number]. Result Comment: ljon es Performed By: #### L [id number] ####[facility] ([facility])[address] [place] [address] Glucose [Mass/Vol] 205 mg/dL High 70-105 [facility] Comment on above: Order Comment: Waive d Testing in the ED is performed under the ED CLIA certificate #[id number]. Result Comment: rgil l Performed By: #### L [id number] ####[facility] ([facility])[address] [place] [address] Glucose [Mass/Vol] 200 mg/dL High 70-105 [facility] Comment on above: Order Comment: Waive d Testing in the ED is performed under the ED CLIA certificate #[id number]. Result Comment: [email or web address] [email or web address] Performed By: #### L [id number] ####[facility] ([facility])[address] [place] [address] Glucose [Mass/Vol] 207 mg/dL High 70-105 [facility] Comment on above: Order Comment: Waive d Testing in the ED is performed under the ED CLIA certificate #[id number]. Result Comment: oyod er Performed By: #### L [id number] ####[facility] ([facility])[address] [place] [address] POTASSIUMon 08-16-2024 Potassium [Moles/Vol] 3.3 mmol/L Low 3.5-5.1 [facility] Comment on above: Performed By: #### L [id number] ####[facility] ([facility])[address] [place] [address] Potassium [Moles/Vol] 3.5 mmol/L Normal 3.5-5.1 [facility] Comment on above: Performed By: #### L [id number] ####[facility] ([facility])[address] [place] [address] POTASSIUM, WHOLE BLOODon Potassium [Moles/Vol] 3.5 mmol/L Normal 3.5-5.1 [facility] Comment on above: Performed By: #### P OTASSIUM, WHOLE BLOOD ####[facility] [id number] [place] [address] [place] SODIUM, WHOLE BLOODon 2024 SODIUM, WHOLE BLOOD Normal [facility] Comment on above: Result Comment: C^In calculable Performed By: #### S ODIUM, WHOLE BLOOD ####[facility] [id number] [place] [address] [place] TRIGLYCERIDESon 08-16-2024 FASTING? Unknown Normal [facility] Comment on above: Performed By: #### L [id number] ####[facility] ([facility])[address] [place] [address] Magnesium [Mass/Vol] 243 mg/dL High 40-149 [facility] Comment on above: Result Comment: TRIG LYCERIDE REFERENCE RANGE:20 YEARS AND OLDER CARDIOVASCULAR RISKLESS THAN 150 mg/dL LOW [id number] TO 199 mg/dL BORDERLINE [id number] mg/dL AND GREATER HIGH RISK Performed By: #### L [id number] ####[facility] ([facility])[address] [place] [address] 30on 08-15-2024 [address] [facility] 30 [facility] BLOOD CULTUREon 08-15-2024 Bacteria identified Cx Nom (Bld) No growth at 5 days Normal [facility] Comment on above: Order Comment: From a different site than #1. Performed By: #### L [id number] ####[facility] ([facility])[address] [place] [address] Basophils Auto (Bld) [#/Vol] on 08-15-2024 Basophils (Bld) [#/Vol] Automated basophil count 0.0-0.1 [facility] Basophils/100 WBC Auto (Bld) on 08-15-2024 Basophils/100 WBC (Bld) Automated basophil % Low 0.2-2.0 [facility] CALCIUM, IONIZEDon CALCIUM IONIZED (MMOL/L) IN BLOOD 1.23 mmol/L Normal 1.15-1.[address] [facility] Comment on above: Performed By: #### C ALCIUM, IONIZED ####[facility] [id number] [place] [address] [place] CBC WITH AUTO DIFFERENTIALon 08-15-2024 Basophils (Bld) [#/Vol] 0.01 10*3/uL Normal 0.00-0.[address] [facility] Comment on above: Performed By: #### L [id number] ####[facility] ([facility])[address] [place] [address] Basophils/100 WBC (Bld) 0.1 % Normal 0.0-1.[address] [facility] Comment on above: Performed By: #### L [id number] ####[facility] ([facility])[address] [place] [address] Eosinophils (Bld) [#/Vol] 0.01 10*3/uL Normal 0.00-0.[address] [facility] Comment on above: Performed By: #### L [id number] ####[facility] ([facility])[address] [place] [address] Eosinophils/100 WBC (Bld) 0.1 % Normal 0.0-6.[address] [facility] Comment on above: Performed By: #### L [id number] ####[facility] ([facility])[address] [place] [address] Erythrocyte distribution width (RBC) [Ratio] 15.2 % High 11.5-15.[address] [facility] Comment on above: Performed By: #### L [id number] ####[facility] ([facility])[address] [place] [address] ERYTHROCYTE MEAN CORPUSCULAR HEMOGLOBIN CONCENTRATION (G/DL) BY AUTOMATED 33.8 g/dL Normal 32.0-35.[address] [facility] Comment on above: Performed By: #### L [id number] ####[facility] ([facility])[address] [place] [address] Hematocrit (Bld) [Volume fraction] 47.1 % Normal 39.0-55.[address] [facility] Comment on above: Performed By: #### L [id number] ####[facility] ([facility])[address] [place] [address] Hemoglobin (Bld) [Mass/Vol] 15.9 g/dL Normal 13.0-17.[address] [facility] Comment on above: Performed By: #### L [id number] ####[facility] ([facility])[address] [place] [address] Immature granulocytes (Bld) [#/Vol] 0.05 10*3/uL Normal 0.00-0.[address] [facility] Comment on above: Performed By: #### L [id number] ####[facility] ([facility])[address] [place] [address] Immature granulocytes/100 WBC (Bld) 0.7 % Normal 0.0-1.[address] [facility] Comment on above: Performed By: #### L [id number] ####[facility] ([facility])[address] [place] [address] Lymphocytes (Bld) [#/Vol] 0.54 10*3/uL Low 1.20-4.[address] [facility] Comment on above: Performed By: #### L [id number] ####[facility] ([facility])[address] [place] [address] Lymphocytes/100 WBC (Bld) 7.2 % Low 20.0-45.[address] [facility] Comment on above: Performed By: #### L [id number] ####[facility] ([facility])[address] [place] [address] MCH (RBC) [Entitic mass] 31.8 pg Normal 27.0-33.[address] [facility] Comment on above: Performed By: #### L [id number] ####[facility] ([facility])[address] [place] [address] MCV (RBC) [Entitic vol] 94.2 fL Normal 82.0-98.[address] [facility] Comment on above: Performed By: #### L [id number] ####[facility] ([facility])[address] [place] [address] Monocytes (Bld) [#/Vol] 1.23 10*3/uL High 0.10-1.[address] [facility] Comment on above: Performed By: #### L [id number] ####[facility] [place] [address] Monocytes/100 WBC (Bld) 16.3 % High 5.0-12.[address] [facility] Comment on above: Performed By: #### L [id number] ####[facility] ([facility] [place] [address] Neutrophils (Bld) [#/Vol] 5.70 10*3/uL Normal 1.60-7.[address] [facility] Comment on above: Performed By: #### L [id number] ####[facility] ([facility])[address] [place] [address] Neutrophils/100 WBC (Bld) 75.6 % High 40.0-72.[address] [facility] Comment on above: Performed By: #### L [id number] ####[facility] ([facility])[address] [place] [address] NRBC (PER 100 WBCS) BY AUTOMATED COUNT 0.3 % High [address] [facility] Comment on above: Performed By: #### L [id number] ####[facility] ([facility])[address] [place] [address] PLATELETS (10*3/UL) IN BLOOD AUTOMATED COUNT 237 10*3/uL Normal 150-[address] [facility] Comment on above: Performed By: #### L [id number] ####[facility] ([facility])[address] [place] [place] [address] RBC (Bld) [#/Vol] 5.00 10*6/uL Normal 4.20-5.70 [facility] Comment on above: Performed By: #### L [id number] ####[facility] ([facility])[address] [place], [place] [address] WBC (Bld) [#/Vol] 7.54 10*3/uL Normal 4.00-10.60 [facility] Comment on above: Performed By: #### L [id number] ####[facility] ([facility] [place] [address] COMPREHENSIVE METABOLIC PANE Kris 08-15-2024 Albumin [Mass/Vol] 2.9 g/dL Low 3.5-5.7 [facility] Comment on above: Performed By: #### L [id number] ####[facility] ([facility])[address] [place] [address] ALP [Catalytic activity/Vol] 58 U/L Normal 34-[address] [facility] Comment on above: Performed By: #### L [id number] ####[facility] ([facility])[address] [place] [address] ALT [Catalytic activity/Vol] 21 U/L Normal 7-[address] [facility] Comment on above: Performed By: #### L [id number] ####[facility] [place] [address] Anion gap [Moles/Vol] 13 mmol/L Normal 7-20 [facility] Comment on above: Performed By: #### L [id number] ####[facility] ([facility])[address] [place] [address] AST [Catalytic activity/Vol] 29 U/L Normal 13-[address] [facility] Comment on above: Performed By: #### L [id number] ####[facility] ([facility])[address] [place] [address] Bilirubin [Mass/Vol] 1.0 mg/dL Normal 0.3-1.0 [facility] Comment on above: Performed By: #### L [id number] ####[facility] [place] [address] Calcium [Mass/Vol] 8.2 mg/dL Low 8.6-10.3 [facility] Comment on above: Performed By: #### L [id number] ####[facility] ([facility])[address] [place] [address] Chloride [Moles/Vol] 90 mmol/L Low 98-107 [facility] Comment on above: Performed By: #### L [id number] ####[facility] ([facility])[address] [place] [address] CO2 [Moles/Vol] 32 mmol/L High 21-31 [facility] Comment on above: Performed By: #### L [id number] ####[facility] [place] [address] Creatinine [Mass/Vol] 1.17 mg/dL Normal 0.70-1.30 [facility] Comment on above: Performed By: #### L [id number] ####[facility] ([facility])[address] [place] [address] GLOMERULAR FILTRATION RATE ML/MIN/1.73 SQ M.PREDICTED 69.2 mL/min/1.73m*2 Normal >60.0 [facility] Comment on above: Result Comment: [facility]???s estimated glomerular filtration rate (eGFR) will [...] of individuals. Performed By: #### L [id number] ####[facility] ([facility])[address] [place] [address] Glucose [Mass/Vol] 219 mg/dL High 70-100 [facility] Comment on above: Performed By: #### L [id number] ####[facility] ([facility])[address] [place] [address] Potassium [Moles/Vol] 4.0 mmol/L Normal 3.5-5.1 [facility] Comment on above: Performed By: #### L [id number] ####[facility] ([facility])[address] [place] [address] Protein [Mass/Vol] 5.5 g/dL Low 6.0-8.3 [facility] Comment on above: Performed By: #### L [id number] ####[facility] ([facility])[address] [place] [address] Sodium [Moles/Vol] 131 mmol/L Low 136-145 [facility] Comment on above: Performed By: #### L [id number] ####[facility] ([facility])[address] [place] [address] Urea nitrogen [Mass/Vol] 42 mg/dL High 7-[address] [facility] Comment on above: Performed By: #### L [id number] ####[facility] (BEAKER)[address] [place] [address] UREA NITROGEN/CREATININE (MASS RATIO) IN SER/PLAS 35.[address] [facility] Comment on above: Performed By: #### L [id number] ####[facility] (BEAKER)[address] [place] [address] Eosinophils/100 WBC Auto (Bl d)on 08-15-2024 Eosinophils/100 WBC (Bld) Automated eosinophil % Low 0.9-7.0 [facility] Erythrocyte distribution wid th Auto (RBC) [Ratio]on 08-15-2024 Erythrocyte distribution width (RBC) [Ratio] Erythrocyte distribution width [Ratio] by Automated count High 11.0-15.0 [facility] Estimated glomerular filtrat ion rate (GFR) non- Americanon 08-15-2024 GFR/1.73 sq M.predicted among non-blacks MDRD (S/P/Bld) [Vol rate/Area] Estimated glomerular filtration rate (GFR) non- Low >=60 mL/min/1.73m 2 [facility] Globulin Calc (S) [Mass/Vol] on 08-15-2024 Globulin (S) [Mass/Vol] Serum globulin measurement by calculation (mass/volume) [facility] HEMOGLOBIN A1Con 08-15-2024 Glucose [Mass/Vol] 189 mg/dL Normal [facility] Comment on above: Performed By: #### L [id number] ####[facility] (BEAKER)[address] [place] [address] HbA1c (Bld) [Mass fraction] 8.2 % High 4.0-6.[address] [facility] Comment on above: Performed By: #### L [id number] ####[facility] (BEAKER)[address] [place] [address] HPon 08-15-[address] [facility] Hematocrit Auto (Bld) [Volum e fraction]on 08-15-2024 Hematocrit (Bld) [Volume fraction] Hematocrit [Volume Fraction] of Blood by Automated count 42.0-54.0 [facility] Hemoglobin [Mass/volume] in Bloodon 08-15-2024 Hemoglobin (Bld) [Mass/Vol] Hemoglobin [Mass/volume] in Blood 14.0-18.0 [facility] LIPASEon 08-15-2024 LIPASE (U/L) IN SER/PLAS 28 U/L Normal 11-[address] [facility] Comment on above: Result Comment: M-CH EMISTRY SPECIMEN MODERATELY HEMOLYZED RESULTS MAY NOT BE ACCURATE Performed By: #### L [id number] ####[facility] (BEAKER)[address] [place] [address] Laboratory - Chemistry and C hemistry - challengeon 08-15-2024 HCO3 (Bld) [Moles/Vol] 34.7 mmol/L High 22.0-26.0 [facility] Albumin [Mass/Vol] 2.6 g/dL Low 3.4-5.0 [facility] ALP [Catalytic activity/Vol] 81 U/L 46-116 [facility] ALT [Catalytic activity/Vol] 37 U/L 16-63 [facility] AST [Catalytic activity/Vol] 28 U/L 15-37 [facility] Bilirubin [Mass/Vol] 1.2 mg/dL High 0.2-1.0 [facility] Calcium [Mass/Vol] 9.2 mg/dL 8.5-10.1 [facility] Chloride [Moles/Vol] 101 mmol/L 98-107 [facility] CO2 [Moles/Vol] 35.4 mmol/L High 21.0-32.0 [facility] Creatinine [Mass/Vol] 1.66 mg/dL High 0.70-1.30 [facility] GFR/1.73 sq M.predicted MDRD (S/P/Bld) [Vol rate/Area] 51 mL/min/{1.73_m2} Low >=60 mL/min/1.73m 2 [facility] Glucose [Mass/Vol] 268 mg/dL High 74-106 [facility] Potassium [Moles/Vol] 3.8 mmol/L 3.5-5.1 [facility] Protein [Mass/Vol] 6.3 g/dL Low 6.4-8.2 [facility] Sodium [Moles/Vol] 143 mmol/L 136-145 [facility] Urea nitrogen [Mass/Vol] 52.0 mg/dL High 7.0-18.0 [facility] Urea nitrogen/Creatinine [Mass ratio] 31.3 mg/mg [facility] Laboratory - Hematology and Cell countson 08-15-2024 Immature granulocytes/100 WBC (Bld) 0.8 % High 0.0-0.5 [facility] Leukocytes [#/volume] correc beatris for nucleated erythrocytes in Blood by Automated counon 08-15-2024 WBC corrected for nucl RBC Auto (Bld) [#/Vol] Leukocytes [#/volume] corrected for nucleated erythrocytes in Blood by Automated coun 4.0-11.0 [facility] Lymphocytes Auto (Bld) [#/Vo l]on 08-15-2024 Lymphocytes (Bld) [#/Vol] Lymphocytes [#/volume] in Blood by Automated count Low 1.2-3.8 [facility] Lymphocytes/100 WBC Auto (Bl d)on 08-15-2024 Lymphocytes/100 WBC (Bld) Lymphocytes/100 leukocytes in Blood by Automated count Low 20.5-60.0 [facility] MAGNESIUMon 08-15-2024 Magnesium [Mass/Vol] 1.6 mg/dL Low 1.9-2.7 [facility] Comment on above: Performed By: #### L [id number] ####[facility] (BEAKER)[address] [place] [address] MCH Auto (RBC) [Entitic mass ]on 08-15-2024 MCH (RBC) [Entitic mass] MCH [Entitic mass] by Automated count 25.9-34.0 [facility] MCHC Auto (RBC) [Mass/Vol]on 08-15-2024 MCHC (RBC) [Mass/Vol] MCHC [Mass/volume] by Automated count 29.9-35.2 [facility] MCV Auto (RBC) [Entitic vol] on 08-15-2024 MCV (RBC) [Entitic vol] MCV [Entitic volume] by Automated count 80.0-94.0 [facility] MRSA/MSSA DNA NASALon 2024 MRSA DNA Negative Normal Negative [facility] Comment on above: Order Comment: Testi [...] preclude nasal colonization. Performed By: #### L [id number] ####[facility] (BEAKER)[address] [place] [address] MSSA DNA Negative Normal Negative [facility] Comment on above: Order Comment: Testi [...] preclude nasal colonization. Performed By: #### L [id number] ####[facility] (BEAKER)[address] [place] [address] Monocytes Auto (Bld) [#/Vol] on 08-15-2024 Monocytes (Bld) [#/Vol] Automated blood monocyte count 0.3-0.8 [facility] Monocytes/100 WBC Auto (Bld) on 08-15-2024 Monocytes/100 WBC (Bld) Automated monocyte % 1.7-12.0 [facility] Neutrophils Auto (Bld) [#/Vo l]on 08-15-2024 Neutrophils (Bld) [#/Vol] Neutrophils [#/volume] in Blood by Automated count 1.4-6.5 [facility] Neutrophils/100 WBC Auto (Bl d)on 08-15-2024 Neutrophils/100 WBC (Bld) Automated neutrophil % High 43.0-75.0 [facility] No Panel Informationon 08-15 Avinash Test Positive POSITIVE [facility] Arterial Blood Base Excess 11.0 mmol/L High <2.0-2.0 [facility] Arterial Blood Oxygen Saturation 97.0 % [facility] Arterial Blood Partial Pressure CO2 47.8 mm[Hg] High 35.0-45.0 [facility] Arterial Blood Partial Pressure O2 81.0 mm[Hg] 80.0-100.0 [facility] Arterial Blood pH 7.469 High 7.350-7.450 [facility] Blood Gas PEEP 8 [facility] Blood Gas Sample Site RIGHT RADIAL [facility] Blood Gas Set Respiration Rate 22 [facility] Blood Gas Tidal Volume 600 [facility] Blood Gas Ventilator Mode AC/VC [facility] FiO2 90 % [facility] Oxygen Delivery Device VENT [facility] Reference Lab Test #2 Result 13.8 [facility] Eosinophils # (Auto) 0.0 10 3/uL 0.0-0.7 [facility] Immature Granulocyte # (Auto) 0.06 10 3/uL High 0.00-0.03 [facility] PHOSPHORUSon 08-15-2024 Magnesium [Mass/Vol] 2.7 mg/dL Normal 2.5-5.0 [facility] Comment on above: Performed By: #### L [id number] ####[facility] (BEAKER)[address] [place] [address] POCT GLUCOSE METER UNSOLICIT ED RESULTSon 08-15-2024 Glucose [Mass/Vol] 249 mg/dL High 70-105 [facility] Comment on above: Order Comment: Waive d Testing in the ED is performed under the ED CLIA certificate #[id number]. Result Comment: oyod er Performed By: #### L [id number] ####[facility] (BEAKER)[address] [place] [address] Glucose [Mass/Vol] 217 mg/dL High 70-105 [facility] Comment on above: Order Comment: Waive d Testing in the ED is performed under the ED CLIA certificate #[id number]. Result Comment: bmen [email or web address] Performed By: #### L [id number] ####[facility] (BEAKER)[address] [place] [address] Glucose [Mass/Vol] 233 mg/dL High 70-105 [facility] Comment on above: Order Comment: Waive d Testing in the ED is performed under the ED CLIA certificate #[id number]. Result Comment: bmen [email or web address] Performed By: #### L [id number] ####[facility] (BEAKER)[address] [place] [address] POTASSIUM, WHOLE BLOODon Potassium [Moles/Vol] 3.4 mmol/L Low 3.5-5.1 [facility] Comment on above: Performed By: #### P OTASSIUM, WHOLE BLOOD ####[facility] [id number] [place] [address] [place] Platelet mean volume Auto (B ld) [Entitic vol]on 08-15-2024 Platelet mean volume (Bld) [Entitic vol] Platelet mean volume [Entitic volume] in Blood by Automated count 9.5-13.5 [facility] Platelets Auto (Bld) [#/Vol] on 08-15-2024 Platelets (Bld) [#/Vol] Platelets [#/volume] in Blood by Automated count 150-450 [facility] RBC Auto (Bld) [#/Vol]on RBC (Bld) [#/Vol] Erythrocytes [#/volume] in Blood by Automated count 4.70-6.10 [facility] SODIUM, WHOLE BLOODon 2024 SODIUM, WHOLE BLOOD 136 Normal 136-145 [facility] Comment on above: Performed By: #### S ODIUM, WHOLE BLOOD ####[facility] [id number] [place] [address] [place] Serum or plasma albumin/glob ulin mass ratioon 08-15-2024 Albumin/Globulin [Mass ratio] Serum or plasma albumin/globulin mass ratio [facility] Serum or plasma anion gap de terminationon 08-15-2024 Anion gap [Moles/Vol] Serum or plasma an ion gap determination [facility] TRIGLYCERIDESon 08-15-2024 FASTING? unknown Normal [facility] Comment on above: Order Comment: Monit or triglycerides while patient is on propofol. Consult Nutrition if greater than 500 mg/dL. Performed By: #### L [id number] ####[facility] ([facility])[address] [place] [address] Magnesium [Mass/Vol] 3920 mg/dL High 40-149 [facility] Comment on above: Order Comment: Monit or triglycerides while patient is on propofol. Consult Nutrition if greater than 500 mg/dL. Result Comment: TRIG LYCERIDE REFERENCE RANGE:20 YEARS AND OLDER CARDIOVASCULAR RISKLESS THAN 150 mg/dL LOW DINU515 TO 199 mg/dL BORDERLINE AQUB706 mg/dL AND GREATER HIGH RISK Performed By: #### L [id number] ####[facility] ([facility])[address] [place] [address] TROPONIN Ion 08-15-2024 Troponin I.cardiac [Mass/Vol] 0.04 ng/mL Normal 0.00-0.[address] [facility] Comment on above: Performed By: #### L [id number] ####[facility] ([facility])[address] [place] [address] URINALYSIS WITH MICROSCOPICo n 08-15-2024 BILIRUBIN, TOTAL PRESENCE IN URINE Negative Normal Negative [facility] Comment on above: Performed By: #### L [id number] ####[facility] ([facility])[address] [place] [address] Clarity (U) Clear Normal Clear [facility] Comment on above: Performed By: #### L [id number] ####[facility] ([facility])[address] [place] [address] Color (U) Colorless Normal Colorless, Yellow, Light-Yellow [facility] Comment on above: Performed By: #### L [id number] ####[facility] (BEAKER)[address] [place] [address] GLUCOSE (MG/DL) IN URINE Normal Normal Normal [facility] Comment on above: Performed By: #### L [id number] ####[facility] (BEAKER)[address] [place] [address] HEMOGLOBIN PRESENCE IN URINE Small Abnormal Negative [facility] Comment on above: Performed By: #### L [id number] ####[facility] (BEAKER)[address] [place] [address] Ketones Ql (U) Negative Normal Negative [facility] Comment on above: Performed By: #### L [id number] ####[facility] (BEAKER)[address] [place] [address] LEUKOCYTE ESTERASE PRESENCE IN URINE BY TEST STRIP Negative Normal Negative [facility] Comment on above: Performed By: #### L [id number] ####[facility] (AKER)[address] [place] [address] MUCUS (#/LPF) IN URINE SEDIMENT Occasional Normal None Seen, Occasional, Few [facility] Comment on above: Performed By: #### L [id number] ####[facility] (BEAKER)[address] [place] [address] NITRITE PRESENCE IN URINE Negative Normal Negative [facility] Comment on above: Performed By: #### L [id number] ####[facility] (BEAKER)[address] [place] [address] pH (U) 5.5 [pH] Normal 5.0-8.[address] [facility] Comment on above: Performed By: #### L [id number] ####[facility] (BEAKER)[address] [place] [address] Protein (U) [Mass/Vol] Negative Normal [facility] on above: Performed By: #### L [id number] ####[facility] (BEAKER)[address] [place] [address] RBC (#/HPF) IN URINE SEDIMENT 11-20 Abnormal None Seen, 0-[address] [facility] Comment on above: Performed By: #### L [id number] ####[facility] (BEAKER)[address] [place] [address] Specific gravity (U) [Rel density] 1.011 Normal 1.010-1.[address] [facility] Comment on above: Performed By: #### L [id number] ####[facility] (BEAKER)[address] [place] [address] SQUAMOUS EPITHELIAL CELLS (#/LPF) IN URINE SEDIMENT None Seen Normal None Seen, Occasional, Few [facility] Comment on above: Performed By: #### L [id number] ####[facility] (BEAKER)[address] [place] [address] UROBILINOGEN (MG/DL) IN URINE Normal Normal Normal [facility] Comment on above: Performed By: #### L [id number] ####[facility] (BEAKER)[address] [place] [address] WBC (LEUKOCYTE) (#/HPF) IN URINE SEDIMENT 3-5 Abnormal None Seen, 0-[address] [facility] Comment on above: Performed By: #### L [id number] ####[facility] (BEAKER)[address] [place] [address] Basophils Auto (Bld) [#/Vol] on 08-14-2024 Basophils (Bld) [#/Vol] Automated basophil count 0.0-0.1 [facility] Basophils/100 WBC Auto (Bld) on 08-14-2024 Basophils/100 WBC (Bld) Automated basophil % 0.2-2.0 [facility] Eosinophils/100 WBC Auto (Bl d)on 08-14-2024 Eosinophils/100 WBC (Bld) Automated eosinophil % Low 0.9-7.0 [facility] Erythrocyte distribution wid th Auto (RBC) [Ratio]on 08-14-2024 Erythrocyte distribution width (RBC) [Ratio] Erythrocyte distribution width [Ratio] by Automated count High 11.0-15.0 [facility] Estimated glomerular filtrat ion rate (GFR) non- Americanon 08-14-2024 GFR/1.73 sq M.predicted among non-blacks MDRD (S/P/Bld) [Vol rate/Area] Estimated glomerular filtration rate (GFR) non- Low >=60 mL/min/1.73m 2 [facility] Globulin Calc (S) [Mass/Vol] on 08-14-2024 Globulin (S) [Mass/Vol] Serum globulin measurement by calculation (mass/volume) [facility] Hematocrit Auto (Bld) [Volum e fraction]on 08-14-2024 Hematocrit (Bld) [Volume fraction] Hematocrit [Volume Fraction] of Blood by Automated count 42.0-54.0 [facility] Hemoglobin [Mass/volume] in Bloodon 08-14-2024 Hemoglobin (Bld) [Mass/Vol] Hemoglobin [Mass/volume] in Blood 14.0-18.0 [facility] Laboratory - Chemistry and C hemistry - challengeon 08-14-2024 HCO3 (Bld) [Moles/Vol] 30.8 mmol/L High 22.0-26.0 [facility] Albumin [Mass/Vol] 2.4 g/dL Low 3.4-5.0 [facility] ALP [Catalytic activity/Vol] 82 U/L 46-116 [facility] ALT [Catalytic activity/Vol] 39 U/L 16-63 [facility] AST [Catalytic activity/Vol] 24 U/L 15-37 [facility] Bilirubin [Mass/Vol] 1.1 mg/dL High 0.2-1.0 [facility] Calcium [Mass/Vol] 8.6 mg/dL 8.5-10.1 [facility] Chloride [Moles/Vol] 102 mmol/L 98-107 [facility] CO2 [Moles/Vol] 32.4 mmol/L High 21.0-32.0 [facility] Creatinine [Mass/Vol] 1.64 mg/dL High 0.70-1.30 [facility] GFR/1.73 sq M.predicted MDRD (S/P/Bld) [Vol rate/Area] 51 mL/min/{1.73_m2} Low >=60 mL/min/1.73m 2 [facility] Glucose [Mass/Vol] 194 mg/dL High 74-106 [facility] Potassium [Moles/Vol] 3.9 mmol/L 3.5-5.1 [facility] Protein [Mass/Vol] 5.8 g/dL Low 6.4-8.2 [facility] Sodium [Moles/Vol] 140 mmol/L 136-145 [facility] Urea nitrogen [Mass/Vol] 54.0 mg/dL High 7.0-18.0 [facility] Urea nitrogen/Creatinine [Mass ratio] 32.9 mg/mg [facility] Laboratory - Hematology and Cell countson 08-14-2024 Immature granulocytes/100 WBC (Bld) 0.8 % High 0.0-0.5 [facility] Leukocytes [#/volume] correc beatris for nucleated erythrocytes in Blood by Automated counon 08-14-2024 WBC corrected for nucl RBC Auto (Bld) [#/Vol] Leukocytes [#/volume] corrected for nucleated erythrocytes in Blood by Automated coun 4.0-11.0 [facility] Lymphocytes Auto (Bld) [#/Vo l]on 08-14-2024 Lymphocytes (Bld) [#/Vol] Lymphocytes [#/volume] in Blood by Automated count Low 1.2-3.8 [facility] Lymphocytes/100 WBC Auto (Bl d)on 08-14-2024 Lymphocytes/100 WBC (Bld) Lymphocytes/100 leukocytes in Blood by Automated count Low 20.5-60.0 [facility] MCH Auto (RBC) [Entitic mass ]on 08-14-2024 MCH (RBC) [Entitic mass] MCH [Entitic mass] by Automated count 25.9-34.0 [facility] MCHC Auto (RBC) [Mass/Vol]on 08-14-2024 MCHC (RBC) [Mass/Vol] MCHC [Mass/volume] by Automated count 29.9-35.2 [facility] MCV Auto (RBC) [Entitic vol] on 08-14-2024 MCV (RBC) [Entitic vol] MCV [Entitic volume] by Automated count High 80.0-94.0 [facility] Monocytes Auto (Bld) [#/Vol] on 08-14-2024 Monocytes (Bld) [#/Vol] Automated blood monocyte count 0.3-0.8 [facility] Monocytes/100 WBC Auto (Bld) on 08-14-2024 Monocytes/100 WBC (Bld) Automated monocyte % 1.7-12.0 [facility] Neutrophils Auto (Bld) [#/Vo l]on 08-14-2024 Neutrophils (Bld) [#/Vol] Neutrophils [#/volume] in Blood by Automated count 1.4-6.5 [facility] Neutrophils/100 WBC Auto (Bl d)on 08-14-2024 Neutrophils/100 WBC (Bld) Automated neutrophil % High 43.0-75.0 [facility] No Panel Informationon 08-14 Avinash Test Positive POSITIVE [facility] Arterial Blood Base Excess 6.2 mmol/L High <2.0-2.0 [facility] Arterial Blood Oxygen Saturation 93.3 % [facility] Arterial Blood Partial Pressure CO2 48.3 mm[Hg] High 35.0-45.0 [facility] Arterial Blood Partial Pressure O2 62.0 mm[Hg] Low 80.0-100.0 [facility] Arterial Blood pH 7.413 7.350-7.450 [facility] Blood Gas PEEP +8 [facility] Blood Gas Sample Site RIGHT RADIAL F [facility] Blood Gas Set Respiration Rate 22 [facility] Blood Gas Tidal Volume [address] [facility] Blood Gas Ventilator Mode AC [facility] FiO2 100 % [facility] Oxygen Delivery Device VENT [facility] Eosinophils # (Auto) 0.0 10 3/uL 0.0-0.7 [facility] Immature Granulocyte # (Auto) 0.05 10 3/uL High 0.00-0.03 [facility] Platelet mean volume Auto (B ld) [Entitic vol]on 08-14-2024 Platelet mean volume (Bld) [Entitic vol] Platelet mean volume [Entitic volume] in Blood by Automated count 9.5-13.5 [facility] Platelets Auto (Bld) [#/Vol] on 08-14-2024 Platelets (Bld) [#/Vol] Platelets [#/volume] in Blood by Automated count 150-450 [facility] RBC Auto (Bld) [#/Vol]on RBC (Bld) [#/Vol] Erythrocytes [#/volume] in Blood by Automated count 4.70-6.10 [facility] Serum or plasma albumin/glob ulin mass ratioon 08-14-2024 Albumin/Globulin [Mass ratio] Serum or plasma albumin/globulin mass ratio [facility] Serum or plasma anion gap de terminationon 08-14-2024 Anion gap [Moles/Vol] Serum or plasma an ion gap determination [facility] URINE CULTURE, ROUTINEon Bacteria identified Cx Nom (U) Urine Culture, Routine [facility] Bacteria identified Cx Nom (U) No growth [facility] Bacteria identified Cx Nom (U) Performed at: [facility] Bacteria identified Cx Nom (U) [address] [place] [address] [phone] [facility] Bacteria identified Cx Nom (U) Manager Forensic: Tyron Saeed PhD, Phone: [phone] [facility] Basophils Auto (Bld) [#/Vol] on 04-08-2024 Basophils (Bld) [#/Vol] 0.1 10 3/uL 0.0-0.1 [facility] Basophils/100 WBC Auto (Bld) on 04-08-2024 Basophils/100 WBC (Bld) 0.4 % 0.2-2.0 [facility] Eosinophils/100 WBC Auto (Bl d)on 04-08-2024 Eosinophils/100 WBC (Bld) 1.7 % 0.9-7.0 [facility] Erythrocyte distribution wid th Auto (RBC) [Ratio]on 04-08-2024 Erythrocyte distribution width (RBC) [Ratio] 13.9 % 11.0-15.0 [facility] Estimated glomerular filtrat ion rate (GFR) non- Americanon 04-08-2024 GFR/1.73 sq M.predicted among non-blacks MDRD (S/P/Bld) [Vol rate/Area] mL/min/{1.73_m2} >=60 [facility] Hematocrit Auto (Bld) [Volum e fraction]on 04-08-2024 Hematocrit (Bld) [Volume fraction] 45.1 % 42.0-54.0 [facility] Hemoglobin [Mass/volume] in Bloodon 04-08-2024 Hemoglobin (Bld) [Mass/Vol] 14.7 g/dL 14.0-18.0 [facility] Kris 04-08-2024 L Specimen: [id number] Received: 04/09/24 Status: KRYSTYNALopez Colon Num: [id number] Spec Type: Surgical Subm Dr: Rc Curtis DPM, MS Tissues: A Extremity - Amputation, Non-Traumatic (R FOREFOOT) B Extremity - Amputation, Non-Traumatic (R FIRST METATARSEL) Procedures: HE/5, Gross/Micro L5/2, Decalcification/2 Age/ Patient Sex Location Account Attending Physician Tyler Mckinney W 63/M [facility] [id number] Rc Curtis DPM, MS SPEC NUM: [id number] RECD: 04/09/24 STATUS: TAMI COLON NUM: [id number] KATHIE: 04/08/[address]: Rc Curtis DPM, MS ENTERED: 04/09/[address] [facility] [address]: Ekta Heath SPEC TYPE: Surgical DEPT: ALEJANDRO JACOBS ENTERED BY: [id number] RECV BY: [id number] ORDERED: HE/5, Gross/Micro L5/2, Decalcification/2 ORDERED: HE/5, [...] of the ulcerated lesion reveals -------- Specimen: [id number] Received: 04/09/24 Status: TAMI Colon Num: [id number] Spec Type: Surgical Subm Dr: Rc Curtis,DPM, MS Tissues: A Extremity - Amputation, Non-Traumatic (R FOREFOOT) B Extremity - Amputation, Non-Traumatic (R FIRST METATARSEL) Procedures: HE/5, Gross/Micro L5/2, Decalcification/2 -------- Patient: Tyler Mckinney [id number] (Continued) -------- Specimen: [id number] Received: 04/09/24 (Continued) Gross Description (Continued) Signed (signature on file) Genaro Zamora MD 04/19/24 1844 -------- Specimen: [id number] Received: 04/09/24 Status: TAMI Colon Num: [id number] Spec Type: Surgical Subm Dr: Rc Curtis,DPShantell, MS Tissues: A Extremity - Amputation, Non-Traumatic (R FOREFOOT) B Extremity - Amputation, Non-Traumatic (R FIRST METATARSEL) Procedures: HE/5, Gross/Micro L5/2, Decalcification/2 -------- Patient: Tyler Mckinney [id number] (Continued) -------- Specimen: [id number] Received: 04/09/24 (Continued) Gross Description (Continued) exposed bone. The lesion is abutting the soft tissue margin. The resection margin of the metatarsals are inked first blue, second green, third yellow, fourth orange, fifth red. Small Stock Facer sections are as follows: A1 soft tissue margin en face A2 first metatarsal bone margin en face, (submitted in decal before routine processing) A3 remaining metatarsal bone margins en face, (submitted in decal before routine processing) A4 sales and merchandising representative section of the lesion with distal [...] performed supporting the above interpretation CPT Codes 21454 [id number] x2 -------- -------- Specimen: [id number] Received: 04/09/24 Status: TAMI Colon Num: [id number] Spec (more content not included)... Normal [facility] Laboratory - Chemistry and C hemistry - challengeon 04-08-2024 Calcium [Mass/Vol] 10.6 mg/dL High 8.5-10.1 [facility] Chloride [Moles/Vol] 98 mmol/L 98-107 [facility] CO2 [Moles/Vol] 34.6 mmol/L High 21.0-32.0 [facility] [place] Creatinine [Mass/Vol] 1.03 mg/dL 0.70-1.30 [facility] GFR/1.73 sq M.predicted MDRD (S/P/Bld) [Vol rate/Area] mL/min/{1.73_m2} >=60 [facility] Glucose [Mass/Vol] 178 mg/dL High 74-106 [facility] Potassium [Moles/Vol] 4.4 mmol/L 3.5-5.1 [facility] Sodium [Moles/Vol] 135 mmol/L Low 136-145 [facility] Urea nitrogen [Mass/Vol] 16.0 mg/dL 7.0-18.0 [facility] Urea nitrogen/Creatinine [Mass ratio] 15.5 mg/mg [facility] Laboratory - Hematology and Cell countson 04-08-2024 Immature granulocytes/100 WBC (Bld) 1.1 % High 0.0-0.5 [facility] Leukocytes [#/volume] correc beatris for nucleated erythrocytes in Blood by Automated counon 04-08-2024 WBC corrected for nucl RBC Auto (Bld) [#/Vol] 13.3 10 3/uL High 4.0-11.0 [facility] Lymphocytes Auto (Bld) [#/Vo l]on 04-08-2024 Lymphocytes (Bld) [#/Vol] 1.7 10 3/uL 1.2-3.8 [facility] Lymphocytes/100 WBC Auto (Bl d)on 04-08-2024 Lymphocytes/100 WBC (Bld) 12.5 % Low 20.5-60.0 [facility] MCH Auto (RBC) [Entitic mass ]on 04-08-2024 MCH (RBC) [Entitic mass] 31.1 pg 25.9-34.0 [facility] MCHC Auto (RBC) [Mass/Vol]on 04-08-2024 MCHC (RBC) [Mass/Vol] 32.6 g/dL 29.9-35.2 [facility] MCV Auto (RBC) [Entitic vol] on 04-08-2024 MCV (RBC) [Entitic vol] 95.6 fL High 80.0-94.0 [facility] Monocytes Auto (Bld) [#/Vol] on 04-08-2024 Monocytes (Bld) [#/Vol] 1.0 10 3/uL High 0.3-0.8 [facility] Monocytes/100 WBC Auto (Bld) on 04-08-2024 Monocytes/100 WBC (Bld) 7.3 % 1.7-12.0 [facility] Neutrophils Auto (Bld) [#/Vo l]on 04-08-2024 Neutrophils (Bld) [#/Vol] 10.3 10 3/uL High 1.4-6.5 [facility] Neutrophils/100 WBC Auto (Bl d)on 04-08-2024 Neutrophils/100 WBC (Bld) 77.0 % High 43.0-75.0 [facility] No Panel InformationOrdered By: Rc Curtis on 04-08-2024 Acid Fast Smear [facility] AFB Specimen Processing [facility] Anaerobic Cult, Extended Incub [facility] Tissue Culture [facility] No Panel Informationon 04-08 Fungal Smear Result \R\ Fungus Stain [facility] Gram Stain Result 1 \R\ Gram Stain Result [facility] Miscellaneous Test Comment See comment [facility] Comment on above: Specimen Source: ELENA TRT - Foot Right - Foot Rt - 604.000 Eosinophils # (Auto) 0.2 10 3/uL 0.0-0.7 [facility] Immature Granulocyte # (Auto) 0.15 10 3/uL High 0.00-0.03 [facility] Platelet mean volume Auto (B ld) [Entitic vol]on 04-08-2024 Platelet mean volume (Bld) [Entitic vol] 9.8 fL 9.5-13.5 [facility] Platelets Auto (Bld) [#/Vol] on 04-08-2024 Platelets (Bld) [#/Vol] 482 10 3/uL High 150-450 [facility] RBC Auto (Bld) [#/Vol]on RBC (Bld) [#/Vol] 4.72 10 6/uL 4.70-6.10 [facility] Serum or plasma anion gap de terminationon 04-08-2024 Anion gap [Moles/Vol] 6.8 mmol/L [facility] ALL CBC WITH AUTO DIFFon BASOPHILS ABSOLUTE AUTO 0.1 [facility] Basophils/100 WBC (Bld) 0.6 % 0.2 - 2.0 % [facility] Eosinophils/100 WBC (Bld) 2.1 % 0.9 - 7.0 % [facility] Erythrocyte distribution width (RBC) [Ratio] 14.0 % 11.0 - 15.0 % [facility] Hematocrit (Bld) [Volume fraction] 41.9 % Low 42.0 - 54.0 % [facility] Hemoglobin (Bld) [Mass/Vol] 13.7 g/dL Low 14.0 - 18.0 g/dL [facility] IMMATURE GRANULOCYTES ABS AUTO 0.46 High [facility] Immature granulocytes/100 WBC (Bld) 2.9 % High 0.0 - 0.5 % [facility] Interpretation and review of laboratory results Abnormal [facility] LYMPHOCYTES ABSOLUTE AUTO 2.3 [facility] Lymphocytes/100 WBC (Bld) 14.7 % Low 20.5 - 60.0 % [facility] MCH (RBC) [Entitic mass] 31.5 pg 25.9 - 34.0 pg [facility] MCHC (RBC) [Mass/Vol] 32.7 g/dL 29.9 - 35.2 g/dL [facility] MCV (RBC) [Entitic vol] 96.3 fL High 80.0 - 94.0 fL [facility] MONOCYTES ABSOLUTE AUTO 1.2 High [facility] Monocytes/100 WBC (Bld) 7.8 % 1.7 - 12.0 % [facility] NEUTROPHILS ABSOLUTE AUTO 11.4 High [facility] Neutrophils/100 WBC (Bld) 71.9 % 43.0 - 75.0 % [facility] Platelet mean volume (Bld) [Entitic vol] 10.2 fL 9.5 - 13.5 fL [facility] TBH EO # 0.3 [facility] TB PLT 475 High [facility] TB RBC 4.35 Low [facility] TB WBC 15.8 High [facility] CLINISYNC [facility] Kris 03-29-2024 L Specimen: [id number] Received: 03/29/248762 Status: TAMI Colon Num: [id number] Spec Type: Surgical Subm Dr: Rc Curtis,DPShantell, [place] Tissues: A Bone Fragments - Other than Path Fracture (R 1 METARSAL BONE) Procedures: HE, Gross/Micro L3, Decalcification Age/ Patient Sex Location Account Attending Physician Tyler Mckinney 63/M LABELL [id number] Rc Curtis DPM, MS SPEC NUM: [id number] RECD: 03/29/24 STATUS: TAMI COLON NUM: [id number] KATHIE: 03/29/[address]: Rc Curtis DPM, MS ENTERED: 03/29/[address] [facility] [address]: Ekta Heath SPEC TYPE: Surgical DEPT: ALEJANDRO JACOBS ENTERED BY: [id number] RECV BY: [id number] ORDERED: HE, Gross/Micro L3, Decalcification ORDERED: HE, [...] performed supporting the above interpretation -------- Specimen: [id number] Received: 03/29/24 Status: TAMI Colon Num: [id number] Spec Type: Surgical Subm Dr: Rc Curtis DPM, MS Tissues: A Bone Fragments - Other than Path Fracture (R 1 METARSAL BONE) Procedures: HE, Gross/Micro L3, Decalcification -------- Patient: Tyler Mckinney [id number] (Continued) -------- Specimen: [id number] Received: 03/29/24 (Continued) Signed (signature on file) Genaro Zamora MD 04/05/24 170 -------- Specimen: [id number] Received: 03/29/24 Status: TAMI Colon Num: [id number] Spec Type: Surgical Subm Dr: Rc Curtis,DPM, MS Tissues: A Bone Fragments - Other than Path Fracture (R 1 METARSAL BONE) Procedures: DUNCAN, Gross/Micro L3, Decalcification -------- Patient: Tyler Mckinney W [id number] (Continued) -------- Specimen: [id number] Received: 03/29/24 (Continued) CPT Codes [id number] -------- -------- Specimen: [id number] Received: 03/29/24 Status: TAMI Colon Num: [id number] Spec Type: Surgical Subm Dr: Rc Curtis,CARLOS, MS Tissues: A Bone Fragments - Other than Path Fracture (R 1 METARSAL BONE) Procedures: HE, Gross/Micro L3, Decalcification -------- Patient: MckinneyTyler [id number] (Continued) -------- Signed (signature on file) Genaro Zamora MD 04/05/24 1708 Normal [facility] XR FOOT LT MIN [...] by: Sukhdev PARKS Date: 2022-07-14 23:08 Normal [facility] GLYCOHEMOGLOBIN A1Con 2021 ADA RECOMMENDATION SEE BELOW Normal [facility] Comment on above: Result Comment: ADA RECOMMENDED LIMIT 4.0 - 6.0 ADA THERAPEUTIC TARGET < 7.0 ACTION SUGGESTED > 7.0 Performed By: #### A 1C #### [facility] [address] [address] [address] Jennifer Zamora Glucose [Mass/Vol] 212 mg/dL Normal [facility] Comment on above: Performed By: #### A 1C #### [facility] [address] [place], [place] [address] Dr. Jennifer Zamora HbA1c (Bld) [Mass fraction] 9.0 % Critically high 4.5-6.2 [facility] Comment on above: Performed By: #### A 1C #### [facility] [address] [place], [place] [address] Dr. Jennifer Zamora PROF 14(COMP METB)on 10-24-2 022 Albumin [Mass/Vol] 3.4 g/dL Normal 3.4-5.0 [facility] Comment on above: Performed By: #### C MP #### [facility] [address] [place] [address] Dr. Jennifer Zamora Albumin/Globulin [Mass ratio] 0.9 {ratio} Normal [facility] Comment on above: Performed By: #### C MP #### [facility] [address] [address] [address] Jennifer Zamora ALP [Catalytic activity/Vol] 108 U/L Normal 46-116 [facility] Comment on above: Performed By: #### C MP #### [facility] [address] [place] [address] Dr. Jennifer Zamora ALT [Catalytic activity/Vol] 35 U/L Normal 16-63 [facility] Comment on above: Performed By: #### C MP #### [facility] [address] [place] [address] Dr. Jennifer Zamora Anion gap [Moles/Vol] 7.0 mmol/L Normal [facility] Comment on above: Performed By: #### C MP #### [facility] [address] [place] [address] Dr. Jennifer Zamora AST [Catalytic activity/Vol] 11 U/L Critically low 15-37 [facility] Comment on above: Performed By: #### C MP #### [facility] [address] [place] [address] Dr. Jennifer Zamora Bilirubin [Mass/Vol] 0.7 mg/dL Normal 0.2-1.0 [facility] Comment on above: Performed By: #### C MP #### [facility] [address] [place] [address] Dr. Jennifer Zamora Calcium [Mass/Vol] 8.9 mg/dL Normal 8.5-10.1 [facility] Comment on above: Performed By: #### C MP #### [facility] [address] [place] [address] Dr. Jennifer Zamora Chloride [Moles/Vol] 100 mmol/L Normal 98-107 [facility] Comment on above: Performed By: #### C MP #### [facility] [address] [address] [address] Jennifer Zamora CO2 [Moles/Vol] 32.5 mmol/L Critically high 21.0-32.0 [facility] Comment on above: Performed By: #### C MP #### [facility] [address] [address] [address] Jennifer Zamora Creatinine [Mass/Vol] 1.05 mg/dL Normal 0.70-1.30 [facility] Comment on above: Performed By: #### C MP #### [facility] [address] [address] [address] Jennifer Zamora EGFR-AF PUERTO RICAN >60 Normal >=60 [facility] Comment on above: Performed By: #### C MP #### [facility] [address] [place] [address] Dr. Jennifer Zamora EGFR-NON AF PUERTO RICAN >60 Normal >=60 [facility] Comment on above: Performed By: #### C MP #### [facility] [address] [place] [address] Dr. Jennifer Zamora Globulin (S) [Mass/Vol] 3.7 g/dL Normal [facility] Comment on above: Performed By: #### C MP #### [facility] [address] [address] [address] Jennifer Zamora Glucose [Mass/Vol] 175 mg/dL Critically high 74-106 [facility] Comment on above: Performed By: #### C MP #### [facility] [address] [place] [address] Dr. Jennifer Zamora Potassium [Moles/Vol] 4.5 mmol/L Normal 3.5-5.1 [facility] Comment on above: Performed By: #### C MP #### [facility] [address] [place] [address] Dr. Jennifer Zamora Protein [Mass/Vol] 7.1 g/dL Normal 6.4-8.2 [facility] Comment on above: Performed By: #### C MP #### [facility] [address] [address] [address] Jennifer Zamora Sodium [Moles/Vol] 135 mmol/L Critically low 136-145 [facility] Comment on above: Performed By: #### C MP #### [facility] [address] [address] [address] Jennifer Zamora Urea nitrogen [Mass/Vol] 18.0 mg/dL Normal 7.0-18.0 [facility] Comment on above: Performed By: #### C MP #### [facility] [address] [address] [address] Jennifer Zamora Urea nitrogen/Creatinine [Mass ratio] 17.1 mg/mg Normal [facility] Comment on above: Performed By: #### C MP #### [facility] [address] [address] [address] Jennifer Zamora Vital Signs Date Time Vital Sign Value Performing Clinician Faci lity 02-01-2025 14:090400 Body height 180.34 cm Dara Eisenberg APRN Work Phone: [facility] 02-01-2025 14:09-0400 Body mass index (BMI) [Ratio] 41.7 kg/m2 Dara Eisenberg APRN Work Phone: [facility] 02-01-2025 14:09-0400 Body temperature 96.5 [degF] Dara Eisenberg APRN Work Phone: [facility] 02-01-2025 14:09-0400 Body weight 135.62 kg Dara Eisenberg APRN Work Phone: [facility] 02-01-2025 14:09-0400 Diastolic blood pressure 68 mm[Hg] Dara Eisenberg APRN Work Phone: [facility] 02-01-2025 14:09-0400 Heart rate 102 /min Dara Eisenberg APRN Work Phone: [facility] 02-01-2025 14:09-0400 SaO2% (BldA) [Mass fraction] 96 % Dara Eisenberg APRN Work Phone: [facility] 02-01-2025 14:09-0400 Systolic blood pressure 114 mm[Hg] Dara Eisenberg APRN Work Phone: [facility] 11-05-2024 10:[id number] Body height 180.[address] [facility] 11-05-2024 10:26-0400 Body mass index (BMI) [Ratio] 44.7 kg/m2 [facility] 11-05-2024 10:260400 Body weight 145.[address] [facility] 11-05-2024 10:26-0400 Diastolic blood pressure 68 mm[Hg] [facility] 11-05-2024 10:26-0400 Heart rate 98 /min [facility] 11-05-2024 10:26-0400 Respiratory rate 14 /min [facility] 11-05-2024 10:26-0400 SaO2% (BldA) [Mass fraction] 90 % [facility] 11-05-2024 10:26-0400 Systolic blood pressure 128 mm[Hg] [facility] 05-03-2024 14:14-0400 Body height 180.34 cm ROWDY Eisenberg Work Phone: [facility] 05-03-2024 14:14-0400 Body mass index (BMI) [Ratio] 39.3 kg/m2 ROWDY Eisenberg Work Phone: [facility] 05-03-2024 14:14-0400 Body temperature 96.9 [degF] ROWDY Eisenberg Work Phone: [facility] 05-03-2024 14:14-0400 Body weight 128 kg ROWDY Eisenberg Work Phone: [facility] 05-03-2024 14:14-0400 Diastolic blood pressure 86 mm[Hg] ROWDY Eisenberg Work Phone: [facility] 05-03-2024 14:14-0400 Heart rate 108 /min STROBOROMA OPERATORFauzia Eisenberg Work Phone: [facility] 05-03-2024 14:14-0400 SaO2% (BldA) [Mass fraction] 92 % STROBOROMA OPERATORFauzia Eisenberg Work Phone: [facility] 05-03-2024 14:14-0400 Systolic blood pressure 142 mm[Hg] STROBOROMA OPERATORFauzia Eisenberg Work Phone: [facility] 04-05-2024 13:44-0400 Body height 180.34 cm DPM Rc Curtis Work Phone: [facility] 04-05-2024 13:44-0400 Body mass index (BMI) [Ratio] 39.6 kg/m2 DPM Rc Curtis Work Phone: [facility] 04-05-2024 13:44-0400 Body temperature 97.4 [degF] DPM Rc Curtis Work Phone: [facility] 04-05-2024 13:44-0400 Body weight 128.82 kg DPM Rc Curtis Work Phone: [facility] 04-05-2024 13:44-0400 Diastolic blood pressure 70 mm[Hg] DPM Rc Curtis Work Phone: [facility] 04-05-2024 13:44-0400 Heart rate 61 /min DPM Rc Curtis Work Phone: [facility] 04-05-2024 13:44-0400 SaO2% (BldA) [Mass fraction] 87 % DPM Rc Curtis Work Phone: [facility] 04-05-2024 13:44-0400 Systolic blood pressure 134 mm[Hg] DPM Rc Curtis Work Phone: [facility] Encounters Encounter Date Encounter Type Care Provider Facility Start: 02-15-2025 ambulatory ACNP [place] Start: 02-01-2025 End: 02-01-2025 ambulatory Dara Eisenberg APRN Work Phone: [facility] Work Phone: Start: 02-01-2025 End: 02-01-2025 Patient encounter procedure Dara Eisenberg APRN [facility] Work Phone: Start: 01-27-2025 Non-patient / Non-visit Angelic Gen [facility] Work Phone: Start: 01-24-2025 End: 01-26-2025 Evaluation and management of inpatient Ghassan EllisNimesh Noahjose martinmatt [place] Start: 01-24-2025 Emergency department patient visit Manuel Gunterronnie Facility[place] Start: 11-05-2024 End: 11-05-2024 ambulatory [facility] Work Phone: Start: 11-05-2024 End: 11-05-2024 Patient encounter procedure [facility] Work Phone: Start: 08-29-2024 Evaluation and management of inpatient MERRILL MIKII [facility] Start: 08-26-2024 Evaluation and management of inpatient BILL BARBARAGUZMAN [facility] Start: 08-24-2024 Evaluation and management of inpatient PALOMO CADENCE [facility] Start: 08-24-2024 Evaluation and management of inpatient PALOMO CADENCE [facility] Start: 08-21-2024 Evaluation and management of inpatient RUDY [facility] Start: 08-21-2024 Evaluation and management of inpatient RUDY [facility] Start: 08-20-2024 Evaluation and management of inpatient RUDY [facility] Start: 08-20-2024 Evaluation and management of inpatient RUDY [facility] Start: 08-19-2024 Evaluation and management of inpatient RUDY [facility] Start: 08-17-2024 Evaluation and management of inpatient RUDY [facility] Start: 08-16-2024 [facility] Start: 08-16-2024 Evaluation and management of inpatient RUDY [facility] Start: 08-15-2024 Evaluation and management of inpatient HUGO PRAJAPATI [facility] Start: 08-15-2024 End: 09-09-2024 Evaluation and management of inpatient SHAIKH MONO [facility] Start: 08-15-2024 Non-patient / Non-visit [facility] Work Phone: Start: 08-14-2024 Non-patient / Non-visit [facility] Work Phone: Start: 08-10-2024 End: 08-12-2024 Clinisync Result Encounter Shaikh Mono JARRETT Work Phone: [facility] Unsolicited Start: 08-10-2024 End: 08-12-2024 Clinisync Result Encounter Shaikh Mono JARRETT Work Phone: [facility] Unsolicited Start: 05-03-2024 End: 05-03-2024 ambulatory ROWDY Eisenberg Work Phone: [facility] Work Phone: Start: 05-03-2024 End: 05-03-2024 Patient encounter procedure ROWDY Eisenberg Work Phone: [facility] Work Phone: Start: 04-12-2024 End: 04-12-2024 ambulatory ROWDY Eisenberg Work Phone: [facility] Work Phone: Start: 04-12-2024 End: 04-12-2024 Patient encounter procedure ROWDY Eisenberg Work Phone: [facility] Work Phone: Start: 04-08-2024 End: 04-08-2024 ambulatory STROBOROMA OPERATORFauzia Diamond Faina Work Phone: [facility] Work Phone: Start: 04-08-2024 End: 04-08-2024 Departed Referred STROBOROMA OPERATORFauzia Diamond Faina Work Phone: [facility] Start: 04-08-2024 Non-patient / Non-visit STROBOROMA OPERATOR Darajody Eisenberg Work Phone: [facility] Work Phone: Start: 04-05-2024 End: 04-05-2024 Clinisync Result Encounter Shaikh Mono JARRETT Work Phone: [facility] Unsolicited Start: 04-05-2024 End: 04-05-2024 Clinisync Result Encounter Shaikh Mono JARRETT Work Phone: [facility] External [facility] Unsolicited Start: 04-05-2024 End: 04-05-2024 ambulatory DPM Rc Curtis Work Phone: [facility] Work Phone: Start: 04-05-2024 End: 04-05-2024 Patient encounter procedure DPM Rc Curtis Work Phone[facility] Work Phone: Start: 03-29-2024 End: 03-29-2024 [facility] Work Phone: Start: 03-29-2024 End: 03-29-2024 Departed Referred DPM Rc Curtis Work Phone: [facility] Start: 01-26-2024 Non-patient / Non-visit DPM Rc Curtis Work Phone: [facility] Work Phone: Start: 07-14-2022 End: 07-15-[address] EDELMIRA SANTILLAN Facility:[facility] Start: 05-13-2022 End: 05-14-[address] MADELEINE MARCELINO Facility:[facility] Procedures Date Procedure Procedure Detail Performing Clinician Start: 08-10-2024 Bacteria identified in Urine by Culture Shaikh Mono JARRTET Work Phone: Start: 04-08-2024 Acid Fast Smear STROBOROMA OPERATOR Elmer Eisenberg Work Phone: Start: 04-08-2024 AFB Specimen Processing ROWDY Eisenberg Work Phone: Start: 04-08-2024 Anaerobic Cult, Extended Incub ROWDY Eisenberg Work Phone: Start: 04-08-2024 Tissue Culture STROBOROMA OPERATORFauzia Eisenberg Work Phone: Start: 04-05-2024 ALL CBC WITH AUTO DIFF Shaikh Mono JARRETT Work Phone: History of amputatio n of foot Status post partial amputation of right foot History of amputatio n of foot Status post partial amputation of right foot Dara Eisenberg APRN HEEL BRUSHER Plan of Treatment Date Care Activity Detail Author Start: 04-08-2024 Acid Fast Culture Acid Fast Culture [facility] Payers Date Payer Category Payer Private Health Insurance [id number] 2024 Self-pay 2024 Medicare [id number] 1961 Self-pay [id number] 1959 Unknown [id number] 1959 Unknown [id number] 1958 Unknown [id number] .593 1958 Unknown [id number] .593 1958 Unknown [id number] 2.16.840.1.533472.3.579.2 .727 1958 Unknown [id number] 2.16.840.1.840549.3.579.2 .72 1958 Unknown [id number] 2.16.840.1.723737.3.579.2 .727 1958 Unknown [id number] 2.16.840.1.365411.3.579.2 .727 1958 Unknown [id number] 2.16.840.1.404836.3.579.2 .72 1958 Unknown [id number] 2.16.840.1.339856.3.579.2 .72 1958 Unknown [id number] 2.16.840.1.495324.3.579.2 .72 1958 Unknown [id number] 2.16.840.1.603521.3.579.2 .72 1958 Unknown [id number] 2.16.840.1.826471.3.579.2 .727 Medicare [employer] [place] [employer] [id number] Private Health Insurance [facility] [id number] Unknown [id number] [id number] .531 Unknown Regular Insurance [id number] Social History Date Type Detail Facility Tobacco smoking status AKIS Unknown if ever smoked [facility] Work Phone: Start: 1960 Sex Assigned At Male [facility] Start: 04-05-2024 Tobacco smoking status NHIS Smoker (finding) [facility] Tobacco smoking status AKIS Tobacco smoking consumption unknown [facility] Start: 1960 Sex assigned at Not on file [facility] Gender identity Not on file [facility] Health are Start: 11-05-2024 Sex Male (finding) [facility] [place] Start: 04-05-2024 Tobacco smoking status NHIS Smokes tobacco daily (finding) [facility] Medical Equipment Procedure Code Equipment Code [...] Locations R1: This test was performed at: [facility], [address] [place] [address], [facility] , , [facility] Comment on above: Performed By: #### [id number] #### [facility] [address] [place] [address] 01-31-2025 Note Microbiology PROCEDURE: Blood Culture Charcoal [...] Locations R1: This test was performed at: [facility], [address] [place] [address], [id number] , , [facility] Comment on above: Performed By: #### 1 [id number] #### [facility] [address] [place] [id number] 01-26-2025 Note Patient Education - Text Atrial [...] signals of the heart. ??? An ambulatory hospital monitor to record your heart's activity for [...] signs of a (more content not included)... 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 Patient was insistent on trying an zpnh-oyy-lgnxffp supplement that he stated would cure diabetes [...] his wounds and recommended continued follow-up with [place] [facility] where he receives care. Patient successfully passed a voiding trial and was voiding easily after removal of [place]. Creatinine had improved from 1.4-0.8 on discharge. Medically stable for discharge home on 01/26/2025. Follow-up PCP in 7 to 10 days Continued care at [place] [facility] Referral sent to Dr. Rosen in [place] for endocrinology follow-up for better glucose control. Discussed this with patient and he was agreeable. Follow-up with [facility] anticoagulation clinic Medication changes Continue [...] Completed -- 01/24/25 20:11:27 EDT Consult to Wire Bound Box Machine Helper (Wire Bound Box Machine Helper Consult) - Ordered -- 01/24/25 20:22:00 EDT, [...] & normal b (more content not included)... [facility] Comment on above: Result Comment: Elec tronically [...] signals of the heart. ??? An ambulatory hospital monitor to record your heart's activity for [...] signs of a (more content not included)... [facility] 01-26-2025 Note Progress Note - Matt devi [...] Plan; TBD Please contact Pharmacy at ext. [phone] if there are any questions. [facility] 01-25-2025 Note Interdisciplinary No te - OT Pt is seen for OT evaluation. AMPAC score: 16/24. Pt is agreeable only to sitting EOB, no further transfers or mobility and becomes very agitated due to BLE pain. Pt is below functional baseline for ADL performance. OT to follow for treatment. Recommending HH vs SNF at this time pending progress with treatment. [facility] 01-25-2025 Note Progress Note-Physic janae Assessment/Plan 01/25 [...] Orders Initial Hospital Care/Day Moderate 55 Minutes 57343 Sbsq Hospital Care/Day Moderate 35 Minutes 56932 2. Cellulitis of leg (L03.119: Cellulitis of [...] Monitoring on telemetry. Patient noncompliant with anticoagulation. [id number] score is 4. Reports that Eliquis dose [...] despite clear documentation from previous admission in [place] in August 2024. Reports that he stopped [...] 180. 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 [facility] Comment on above: Result Comment: Elec tronically [...] list: All Problems Smoker / SNOMED CT 443027595 / Confirmed Added secondary to documentation in Social History. Tobacco use / SNOMED CT 6006154864 / Confirmed, Active Problems (2) Smoker Tobacco [...] an outpatient with the wound center in [place]. [facility] Comment on above: Result Comment: Elec tronically Signed By: Linda GONZALEZ, Sina Cruz\.br\Date and Time Signed: 01/25/25 12:56 EDT 01-25-2025 Note Interdisciplinary No te - PT PT Evaluation done this date. Pt. with on AM-PAC this date. He requires supervision to CGAx1 with all activity. Uses w/c and FWW at baseline. Recommend home with home health PT. [facility] 01-25-2025 Note Progress Note - Phar shandra [...] Plan; TBD Please contact Pharmacy at ext. [phone] if there are any questions. [facility] 01-24-2025 Note History and Physical Basic Information [...] would be 75 kg. Given 2 L. [place] sepsis bolus will be 2.25 L, ever, [...] specifically. He follows with Dr. Curtis at [place] for podiatry and had a right transmetatarsal amputation in the past that appeared well-healed. He denies ever seeing vascular surgery. He follows with [facility] [facility]. Stated that he has not [...] Normal alignment. Ext (more content not included)... [facility] Comment on above: Result Comment: Elec tronically [...] at home: Medicines ??? Take and use mbhg-zfm-rapcdus and prescription medicines and creams only as [...] limbs and wais (more content not included)... [facility] 01-24-2025 Note Progress Note-Nurse tourniquerts removed by puneet [facility] 01-24-2025 Note Progress Note - Matt devi [...] Plan; TBD Please contact Pharmacy at ext. [phone] if there are any questions. Spoke with Dr. Ding - he is ordering a lovenox bridge [facility] 01-24-2025 Note Progress Note-Nurse derrell stopped after 4 minutes for blood cultures that are new order. puneet informed. [facility] 01-24-2025 Note Progress Note-Nurse pt reportedly wears 5 lpm at [facility]. d8id not say before. no saturating properly on at home O2 [facility] 11-05-2024 Evaluation note Diagnosis Onset Date Resolution [...] (chronic) (peripheral) acute October 10:18am [facility] Work Phone: 1(659) 818-204602-20-2025 [facility]Un[facility] [facility] [facility]-[address] [facility] 09-07-2024 NoteDISCHARGE PLANNING UPDATE Patient now agreeable to SNF placement. Insurance authorization submitted for [facility] in [place]. Awaiting insurance decision.[facility]02-18-2025 NoteUn[facility] 09-07-2024 NoteUn[facility]02-18-2025 NoteUn[facility]02-18-[address] [facility] 09-07-[address] [facility]-18-[address] [facility]02-17-[address] [facility] 09-06-[address] [facility]-17-[address] [facility]-17-[address] [facility] 09-05-2024 NoteUn[facility]02-16-2025 NoteUn[facility]02-15-2025 NoteUn[facility] 09-04-2024 NoteUn[facility]02-15-2025 NoteUn[facility]02-14-2025 NoteUn[facility] 09-03-2024 NoteUn[facility]02-14-2025 NoteUn[facility]02-13-2025 NoteUn[facility] 09-02-2024 NoteUn[facility]02-13-2025 NoteUn[facility]02-13-2025 NoteUn[facility] 09-01-2024 NoteDISCHARGE PLANNING UPDATE [facility] ([place], [place]) is FOC. Per their admissions team, they are submitting to insurance for authorization today, 09/01.[facility] 09-01-[address] [facility]02-12-[address] [facility]02-11-[address] [facility] 08-31-[address] [facility]-11-[address] [facility]02-11-[address] [facility] 08-30-[address] [facility]-10-[address] [facility]02-10-[address] [facility] 08-30-[address] [facility]-09-[address] [facility]-08-[address] [facility] 08-28-[address] [facility]-08-[address] [facility]02-07-[address] [facility] 08-27-2024 NoteUnSelect [facility]02-06-2025 NoteUnSelect [facility]02-06-[address] [facility] 08-26-2024 NoteUnSelect [facility]02-06-2025 NoteUn[facility]02-05-2025 NoteUn[facility] 08-25-2024 NoteUn[facility]02-05-2025 NoteUn[facility]02-05-2025 NoteUn[facility] 08-24-2024 NoteUn[facility]02-04-2025 NoteUnSelect [facility]02-04-[address] [facility] 08-24-2024 NotePatient is off unit for testing at this time.[facility]02-04-[address] [facility]02-04-[address] [facility]02-04-[address] [facility]02-04-[address] [facility]02-04-[address] [address] [facility]02-03-[address] [facility]02-03-[address] [facility]02-02-[address] [facility]02-01-[address] [facility]02-01-[address] [facility]01-31-[address] [facility]01-31-[address] [facility]01-30-2025 NoteUnSelect [facility]01-29-[address] [facility]01-28-2025 NoteUnSelect [facility]01-28-2025 NoteUnSelect [facility]01-27-[address] [facility]01-27-[address] [facility]01-27-2025 NoteUnSelect [facility] Special[facility] - [facility]onEvaluation noteNo assessment information availableOhiohealth Grady [facility] Work Phone: Evaluation note* Diagnosis Onset Date Resolution Status Type 2 diabetes mellitus acu [facility] Work Phone: Evaluation note* Diagnosis Onset Date Resolution Status COPD (chronic obstructive pulmonary disease) acute Hypertension acute MRSA cellulitis of right foot acute Nicotine dependence acute Non-compliance acute Oxygen dependent acute Type 2 diabetes mellitus acu te Ulcer of right foot due to type 2 diabetes mellitus acute [facility] Work Phone: Evaluation note* Diagnosis Onset Date Resolution Status COPD (chronic obstructive pulmonary disease) acute Hypertension acute MRSA cellulitis of right foot acute Nicotine dependence acute Non-compliance acute Oxygen dependent acute Type 2 diabetes mellitus acu te Ulcer of right foot due to type 2 diabetes mellitus acute Acute osteomyelitis of foot acute [facility] Work Phone: Evaluation note* Diagnosis Onset Date Resolution Status COPD (chronic obstructive pulmonary disease) acute Hypertension acute MRSA cellulitis of right foot acute Nicotine dependence acute Non-compliance acute Oxygen dependent acute Type 2 diabetes mellitus acu te Ulcer of right foot due to type 2 diabetes mellitus acute Acute osteomyelitis of foot acute Low back pain acute [facility] Work Phone: Evaluation note* Diagnosis Onset [...] acute November 05, 2024 10:18am [facility] Work Phone: Reason for referral (narrative)No reason for referral information availableCleveland Clinic Ment[facility] Hospital Work Phone: Summary Purpose Family History No Family History Records Found Relationship Condition Age at Onset Recorded Date/T mecca mother Malignant neoplasm of cervix Unknown Advance Directives No Advanced Directives Records Found Advance Directive Response Recorded Date/ Time Advance Directives No March 2:40pm Chief Complaint and Reason for Visit Chief Complaint Admit Date F/U shelter stay/Medications-HIGH R ISK November 05, 2024 10:18am Amb Documentation January 27, 2025 8:33 am [facility] [place] February 01, 2025 2:06 pm Reason for Visit Admit Date Atrial flutter November 05, 2024 10: 18am Chronic back pain November 05, 2024 10: 18am COPD (chronic obstructive pulmonary dise [facility]) November 05, 2024 10:18am Heart failure November [...] 2024 10:18am Chief Complaint Admit Date F/U shelter stay/Medications-HIGH R ISK November 05, 2024 10:18am Reason for Visit Admit Date COPD (chronic obstructive pulmonary dise [facility]) November 05, 2024 10:18am Hypertension November 05, [...] content) DATE CREATED AUTHOR 07/19/2022 [facility] DATE CREATED AUTHOR AUTHOR'S ORGANIZ ATION 04/20/2024 [facility] DATE CREATED AUTHOR AUTHOR'S ORGANIZ ATION 10/20/2024 [facility] DATE CREATED AUTHOR AUTHOR'S ORGANIZ ATION 01/28/2025 Trimble Reeves [facility] DATE CREATED AUTHOR AUTHOR'S ORGANIZ ATION 01/29/2025 [facility] DATE CREATED AUTHOR AUTHOR'S ORGANIZ ATION 01/30/2025 Trimble Edgar [facility] DATE CREATED AUTHOR AUTHOR'S ORGANIZ ATION [facility]20[facility] DATE CREATED AUTHOR AUTHOR'S ORGANIZ ATION 02/17/2025 [place] [facility] DATE CREATED AUTHOR AUTHOR'S ORGANIZ ATION 04/01/2025 [facility] Care Teams (unrecognized sec tion and content) Team Status: Active Member Role Status Dates Magnolia Chavez LPN Attending Provider Active St art: January 26, 2024 Team Status: Inactive Member Role Status Dates Rc Curtis DPM MS Attending Provider Active Start: March 29, 2024 End: March 29, 2024 Team Status: Active Member Role Status Dates Dara Eisenberg APRN DIE STORAGE WORKER-C Primary Care Provider Active Team Status: Inactive Member Role Status Dates Dara Eisenberg APRN DIE STORAGE WORKER-C Primary Care Provider, Attending Provider Active Start: April 05, 2024 End: April 05, 2024 Team Status: Active Member Role Status Dates Dara Eisenberg APRN DIE STORAGE WORKER-C Primary Care Provider, Attending Provider Active Start: April 08, 2024 Team Status: Inactive Member Role Status Dates Dara Eisenberg APRN DIE STORAGE WORKER-C Primary Care Provider Active Start: March 212023 End: April 08, 2024 Rc Curtis DPM MS Attending Provider Active Start: April 08, 2024 End: April 08, 2024 Team Status: Inactive Member Role Status Dates Dara Eisenberg APRN DIE STORAGE WORKER-C Primary Care Provider Active Start: March 222023 End: April 12, 2024 Navdeep Trujillo MD Attending Provider Active Sta rt: April 12, 2024 End: April 12, 2024 Team Status: Inactive Member Role Status Dates Dara Eisenberg APRN DIE STORAGE WORKER-C Primary Care Provider, Attending Provider Active Start: May 03, 2024 End: May 03, 2024 Team Status: Active Member Role Status Dates Dara Eisenberg APRN DIE STORAGE WORKER-C Primary Care Provider Active Start: July Shaikh Mono MD Attending Provider Active Sta rt: August 14, 2024 Team Status: Active Member Role Status Dates Dara Eisenberg APRN DIE STORAGE WORKER-C Primary Care Provider Active Start: July Shaikh Mono MD Attending Provider Active Sta rt: August 15, 2024 Team Status: Inactive Member Role Status Dates Dara Eisenberg APRN DIE STORAGE WORKER-C Primary Care Provider, Attending Provider Active Start: November 05, 2024 End: November 05, 2024 Team Status: Inactive Member Role Status Dates Dara Eisenberg APRN DIE STORAGE WORKER-C Primary Care Provider Active Start: November 05, 2024 End: November 05, 2024 Dara Eisenberg APRN DIE STORAGE WORKER-C Attending Provider Act mook Start: November 05, 2024 End: November 05, 2024 Team Status: Active Member Role Status Dates Dara Eisenberg APRN DIE STORAGE WORKER-C Primary Care Provider Active Start: January 27, 2025 Angelic Blevins CMA Attending Provider Active Start: January 27, 2025 Team Status: Inactive Member Role Status Dates Dara Eisenberg APRN DIE STORAGE WORKER-C Primary Care Provider Active Start: February 01, 2025 End: February 01, 2025 Dara Eisenberg APRN DIE STORAGE WORKER-C Attending Provider Act mook Start: February 01, [...] BE BASED ON THE PRIMARY CLINICAL RECORDS. [employer] provides no warranty or guarantee of the accuracy or completeness of information in this document.
[2025-04-06] MEDS: CILASTATIN SODIUM IV ×2 (01:06→08:42)
[2025-04-06] MEDS: IMIPENEM IV ×2 (01:06→08:42)
[2025-04-06] MEDS: SODIUM CHLORIDE 0.9% IV ×2 (01:06→08:42)
[2025-04-06] MEDS: APIXABAN 5 MG TABLET PO ×3 (01:07→21:49)
[2025-04-06] MEDS: DILTIAZEM HCL 60 MG TABLET PO ×2 (01:07→07:37)
[2025-04-06] MEDS: INSULIN GLARGINE 300 UNIT/3 ML INSULN.PEN 20 UNIT SQ (01:08)
[2025-04-06] MEDS: INSULIN ASPART 300 UNIT/3 ML PEN 16 UNIT SUBQ (01:22)
[2025-04-06] MEDS: INSULIN ASPART 300 UNIT/3 ML PEN SUBQ ×5 (01:31→21:50)
[2025-04-06 01:36] LABS: Anion Gap 12.7; Blood Urea Nitrogen 33.0 mg/dL (7.0-18.0); Calcium 9.8 mg/dL (8.5-10.1); Carbon Dioxide 29.4 mmol/L (21.0-32.0); Chloride 91 mmol/L (98-107); Estimated GFR (African America 56 (>=60 mL/min/1.73m^2); Estimated GFR (Non-African Ame 46 (>=60 mL/min/1.73m^2); Potassium 4.1 mmol/L (3.5-5.1); Sodium 129 mmol/L (136-145)
[2025-04-06 01:38] LABS: Glucose 633 mg/dL (74-106)
[2025-04-06] MEDS: VANCOMYCIN HCL 2,000 MG in 0.9 % SODIUM CHLORIDE 500 ML 250 MG IV (02:16)
[2025-04-06] MEDS: INSULIN ASPART 300 UNIT/3 ML PEN 15 UNIT SUBQ (03:05)
[2025-04-06 06:09] LABS: Hematocrit 40.8 % (42.0-54.0); Hemoglobin 14.0 g/dL (14.0-18.0); Immature Granulocytes Abs Auto 0.14 10^3/uL (0.00-0.03); Immature Granulocytes Pct Auto 0.8 % (0.0-0.5); Lymphocytes Absolute Auto 0.5 10^3/uL (1.2-3.8); Mean Corpuscular HGB Conc 34.3 g/dL (29.9-35.2); Mean Corpuscular Hemoglobin 31.5 pg (25.9-34.0); Mean Corpuscular Volume 91.9 fL (80.0-94.0); Platelet Count 268 10^3/uL (150-450); Red Blood Count 4.44 10^6/uL (4.70-6.10); White Blood Count 17.8 10^3/uL (4.0-11.0)
[2025-04-06 06:31] LABS: Alanine Aminotransferase 13 U/L (16-63); Albumin Globulin Ratio 0.3; Albumin Level 1.8 g/dL (3.4-5.0); Alkaline Phosphatase 127 U/L (46-116); Anion Gap 8.4; Aspartate Amino Transferase 15 U/L (15-37); Blood Urea Nitrogen 33.0 mg/dL (7.0-18.0); Calcium 9.7 mg/dL (8.5-10.1); Carbon Dioxide 31.1 mmol/L (21.0-32.0); Chloride 94 mmol/L (98-107); Estimated GFR (African America >60 (>=60 mL/min/1.73m^2); Estimated GFR (Non-African Ame 54 (>=60 mL/min/1.73m^2); Globulin 5.3 g/dL; Glucose 460 mg/dL (74-106); Magnesium 2.0 mg/dL (1.8-2.4); Potassium 3.5 mmol/L (3.5-5.1); Sodium 130 mmol/L (136-145); Total Protein 7.1 g/dL (6.4-8.2)
[2025-04-06] MEDS: INSULIN ASPART 300 UNIT/3 ML PEN 8 UNIT SUBQ ×3 (07:37→16:14)
[2025-04-06 07:44] LABS: A. calcoaceticus-baumannii Cpx NOT DETECTED (NOT DETECTE); Bacteroides fragilis NOT DETECTED (NOT DETECTE); Candida auris NOT DETECTED (NOT DETECTE); Candida glabrata NOT DETECTED (NOT DETECTE); Enterobacterales NOT DETECTED (NOT DETECTE); Enterococcus faecalis NOT DETECTED (NOT DETECTE); Enterococcus faecium NOT DETECTED (NOT DETECTE); Klebsiella aerogenes NOT DETECTED (NOT DETECTE); Klebsiella pneumoniae group NOT DETECTED (NOT DETECTE); Proteus spp. NOT DETECTED (NOT DETECTE); Salmonella spp. NOT DETECTED (NOT DETECTE); Serratia marcescens NOT DETECTED (NOT DETECTE); Staphylococcus epidermidis NOT DETECTED (NOT DETECTE); Staphylococcus lugdunensis NOT DETECTED (NOT DETECTE); Staphylococcus spp. NOT DETECTED (NOT DETECTE); Stenotrophomonas maltophilia NOT DETECTED (NOT DETECTE); Streptococcus pyogenes NOT DETECTED (NOT DETECTE)
--- NOTE | 2025-04-06 08:00 | ECG_ITS ---
[facility] Test Date: 2025-04-06 Pat Name: TYLER SMITH Department: Room: [facility] Gender: Male Manager Regulatory: : [id number] Requested By: [id number] Order Number: [id number] Reading MD: Doc Mueller Measurements Intervals [place] Rate: 80 P: -16153 VT: -40102 QRS: -24 QRSD: 100 T: 124 QT: 354 QTc: 389 Interpretive Statements 1210 Atrial fibrillation 7202 Moderate left axis deviation 7500 Abnormal QRS-T angle 9140 abnormal rhythm ECG Compared to ECG 04/05/2025 15:35:26 heart rate has decreased Electronically Signed On 04-06-2025 12:35:53 EDT by Doc Mueller
[2025-04-06] MEDS: INSULIN GLARGINE 300 UNIT/3 ML INSULN.PEN 30 UNIT SQ (08:42)
--- NOTE | 2025-04-06 08:45 | CM.NOTE ---
Rounds made with Dr. Richard, discussed plan of care with pt and reason for admission. Pt requires oxygen at this time and is concerned he does not have home oxygen with portability. Pt states he has home oxygen that was purchased from a friend but does not have portability. Dr. Richard aware that pt will need walk test prior to discharge. No discharge today.
[2025-04-06 09:01] LABS: Source BLOOD
[2025-04-06 09:03] LABS: Streptococcus spp. DETECTED (NOT DETECTE)
[2025-04-06] MEDS: HYDROMORPHONE HCL 0.5 MG/0.5 ML SYRINGE IVP (09:53)
[2025-04-06] MEDS: VANCOMYCIN HCL 1,250 MG in 0.9 % SODIUM CHLORIDE 250 ML 166.667 MG IV (10:06)
--- NOTE | 2025-04-06 10:45 | PM.HP ---
HPI H&P: HPI History of Present Illness Chief complaint: WEAKNESS, SCIATICA, COPD, EXACERBATION, A FIB, RVR Narrative: Feeling weak, pain and discomfort all over, no chest pain. No vomiting. Patient was found to have evidence of sepsis, white count is 18,000. Infected right foot. A-fib with RVR. Patient has a history of A-fib. He is on Eliquis. Patient is obese. Functional impairment secondary to back disease. Patient has a wheelchair at home. Opioid HPI Opioid Management Most Recent Pain and Opioid Data: Last Pain Scale 5 Today, 09:53 Last Pain Intensity 8 08/09/24, 16:12 Last Pain Assessment Today, 01:00 Last ED Pain Assessment 04/05/25, 20:57 Last MAR Pain Assessment 04/05/25, 20:44 Last ORT Total Score 0 Today, 00:07 Last ORT Risk Category Low Risk Today, 00:07 Review of Systems ROS Status of ROS 10 or more systems reviewed and unremarkable except as noted in history and below [facility] Medical History (Updated 04/06/25 @ 10:49 by Erendira Richard MD) Encounter for intubation ?Z01.818 - Encounter for other preprocedural examination (ICD-10) Difficult intubation ?T88.4XXA - Failed or difficult intubation, initial encounter (ICD-10) KRISTINE (acute kidney injury) ?N17.9 - Acute kidney failure, unspecified (ICD-10) Chronic kidney disease ?N18.9 - Chronic kidney disease, unspecified (ICD-10) Cardiomyopathy ?I42.9 - Cardiomyopathy, unspecified (ICD-10) Atrial flutter with rapid ventricular response ?I48.92 - Unspecified atrial flutter (ICD-10) Hyperkalemia ?E87.5 - Hyperkalemia (ICD-10) Ulcer of left lower extremity, limited to breakdown of skin ?L97.921 - Non-pressure chronic ulcer of unspecified part of left lower leg limited to breakdown of skin (ICD-10) New onset a-fib ?I48.91 - Unspecified atrial fibrillation (ICD-10) COPD (chronic obstructive pulmonary disease) ?J44.9 - Chronic obstructive pulmonary disease, unspecified (ICD-10) Morbid obesity ?E66.01 - Morbid (severe) obesity due to excess calories (ICD-10) Pneumonia ?J18.9 - Pneumonia, unspecified organism (ICD-10) Type 2 diabetes mellitus with diabetic polyneuropathy ?E11.42 - Type 2 diabetes mellitus with diabetic polyneuropathy (ICD-10) Acute osteomyelitis of right foot ?M86.171 - Other acute osteomyelitis, right ankle and foot (ICD-10) Abscess of right foot ?L02.611 - Cutaneous abscess of right foot (ICD-10) Cellulitis ?L03.90 - Cellulitis, unspecified (ICD-10) Edema, peripheral ?R60.0 - Localized edema (ICD-10) Upper respiratory infection ?J06.9 - Acute upper respiratory infection, unspecified (ICD-10) MURALI (obstructive sleep apnea) ?G47.33 - Obstructive sleep apnea (adult) (pediatric) (ICD-10) Smoker ?F17.200 - Nicotine dependence, unspecified, uncomplicated (ICD-10) Chronic respiratory failure with hypoxia ?J96.11 - Chronic respiratory failure with hypoxia (ICD-10) Dizziness ?R42 - Dizziness and giddiness (ICD-10) Diabetes ?E11.9 - Type 2 diabetes mellitus without complications (ICD-10) Surgical History H/O hernia repair ?Z98.890 - Other specified postprocedural states (ICD-10) ?Z87.19 - Personal history of other diseases of the digestive system (ICD-10) History of tonsillectomy ?Z90.89 - Acquired absence of other organs (ICD-10) History of appendectomy ?Z90.49 - Acquired absence of other specified parts of digestive tract (ICD-10) Family History Grandfather Family history of CHF (congestive heart failure) Family history of diabetes mellitus Family history of hypertension Family history of myocardial infarction Family history of stroke Mother Family history of cancer Social History Within the past year, how often did you have a drink containing alcohol: never Score interpretation: A score less than 4 is consistent with normal alcohol consumption. 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 Highest level of school completed/degree received: 10th grade Are you now , , , , never or living with a partner: Little interest or pleasure in doing things: not at all Feeling down, depressed, or hopeless: not at all Feel stressed/tense/nervous/anxious/difficulty sleeping: not at all Meds Home Medications and Allergies Home Medications ?Medication ?Instructions ?Recorded ?Confirmed ?Type glipizide 5 mg tablet 5 mg PO BID #60 tabs 03/30/24 04/05/25 Rx pen needle, diabetic 31 gauge x #50 ea 03/30/24 04/06/25 Rx 5/16 apixaban 5 mg tablet (Eliquis) 5 mg PO BID 04/05/25 04/06/25 History atorvastatin 80 mg tablet 80 mg PO .QHS 04/05/25 04/06/25 History furosemide 40 mg tablet 40 mg PO DAILY 04/05/25 04/06/25 History gabapentin 300 mg capsule 600 mg PO .QHS 04/05/25 04/06/25 History insulin glargine 100 unit/mL (3 30 unit subcut .QHS 04/05/25 04/06/25 History mL) subcutaneous pen (Lantus Solostar U-100 Insulin) metoprolol tartrate 50 mg tablet 50 mg PO BID 04/05/25 04/06/25 History quetiapine 100 mg tablet 100 mg PO .QHS 04/05/25 04/06/25 History Allergies Allergy/AdvReac Type Severity Reaction Status Date / Time No Known Drug Allergies Allergy Verified 04/05/25 14:58 Exam Narrative Exam Narrative: Morbidly obese. Debilitated. Able to lift up his arms against gravity. Barely able to lift up his legs against gravity. He uses a wheelchair at home. Central obesity. Pale skin and buccal mucosa. Chest is clear, heart is irregular. Abdomen is soft, increased abdominal girth therefore clinically I could not exclude the possibility of intra-abdominal mass organomegaly. Lower extremities examination showed bilateral skin exfoliation's, erythema, hyperpigmentation from the knee down to the feet. Patient has unstable ulcer with the brown drainage measuring about 1 inch and a half on the surface involving the lateral aspect of the right plantar metatarsal. Erythema, induration and drainage. Constitutional Vital Signs, click to edit/add: Last Vital Signs Temp 98 F 04/06/25 04:00 Pulse 87 04/06/25 10:00 Resp 14 04/06/25 04:00 BP 97/64 04/06/25 05:53 Pulse Ox 89 L 04/06/25 10:00 O2 Del Method Nasal Cannula 04/06/25 08:00 O2 Flow Rate 5 04/06/25 08:00 Results Labs Labs: Short CBC 04/05/25 04/06/25 Range/Units 15:00 05:56 WBC 18.6 H 17.8 H (4.0-11.0) 10^3/uL Hgb 14.9 14.0 (14.0-18.0) g/dL Hct 43.2 40.8 L (42.0-54.0) % Plt Count 284 268 (150-450) 10^3/uL BMP 04/05/25 04/06/25 04/06/25 15:00 01:02 05:56 Sodium 125 L 129 L 130 L Potassium 4.0 4.1 3.5 Chloride 89 L 91 L 94 L Carbon Dioxide 29.3 29.4 31.1 BUN 29.0 H 33.0 H 33.0 H Creatinine 1.45 H 1.52 H 1.33 H Glucose 499 H 633 H* 460 H Calcium 10.1 9.8 9.7 Liver Function 04/05/25 04/06/25 Range/Units 15:00 05:56 Total Bilirubin 1.5 H 0.9 (0.2-1.0) mg/dL AST 11 L 15 (15-37) U/L ALT 14 L 13 L (16-63) U/L Alkaline Phosphatase 143 H 127 H (46-116) U/L Albumin 2.1 L 1.8 L (3.4-5.0) g/dL Urine 04/05/25 Range/Units 16:05 Urine Color Lt. yellow (YELLOW) Urine Clarity Sl cloudy (CLEAR) Urine pH 6.0 (5.0-9.0) Ur Specific [place] 1.010 (1.005-1.025) Urine Protein 30 A (NEG/TRACE) mg/dL Urine Glucose (UA) >=1000 A (NEGATIVE) mg/dL Assessment and Plan Assessment and Plan (1) Atrial fibrillation with RVR: (2) Sepsis: Qualifiers: Sepsis type: methicillin resistant Staphylococcus aureus Sepsis acute organ dysfunction status: with acute organ dysfunction Severe sepsis acute organ dysfunction type: acute respiratory failure Acute respiratory failure type: with hypercapnia Severe sepsis shock status: without septic shock Qualified Code(s): A41.02 - Sepsis due to Methicillin resistant Staphylococcus aureus; R65.20 - Severe sepsis without septic shock; J96.02 - Acute respiratory failure with hypercapnia (3) Bacteremia: (4) Diabetic foot ulcer: (5) Osteomyelitis: (6) Cardiomyopathy: Qualifiers: Cardiomyopathy type: unspecified Qualified Code(s): I42.9 - Cardiomyopathy, unspecified Plan Sepsis, bacteremia present on admission. Infected right diabetic foot ulcer, osteomyelitis, probable tissue abscess formation. Blood cultures positive for strep however patient previously had MRSA wound culture on the left leg. Urine tract infection. I started patient on combination of vancomycin and Primaxin Look forward the final culture's identification and sensitivity. Requested MRI of the foot Podiatry consultation for the possible need of intervention. Requested arterial study rule out arterial disease Requested venous study rule out DVT. A-fib with RVR. Patient has a history of A-fib and cardiomyopathy Last EF was 25%. Repeat echo is pending. Patient was started initially on Cardizem drip and converting to oral Cardizem. Consider conversion from calcium michelle to beta-michelle due to cardiomyopathy Volume support. Avoid excessive IV fluid infusion for sepsis given his severe cardiomyopathy Continue Eliquis Diabetes with hyperglycemia. Adjusting insulin to keep blood sugar between 120 and 180. Continue long-acting insulin, meal insulin and sliding scale Functional disability. Patient uses a wheelchair at home. Continue PT OT while in the hospital to prevent further decline in his functional status. CKD stage III At baseline. Continue to monitor kidney function and electrolytes. Chronic medical conditions not listed above, incidental findings seen on labs and imaging. These would need to be addressed. Could be addressed when time and condition are appropriate. Could be addressed in the outpatient setting by PCP collaboration with other needed outpatient providers. Patient is in a critical state of condition. I spent about 45 minutes in the critical care evaluation, assessment and treatment of this patient thus far.
[2025-04-06] MEDS: MIDODRINE HCL 5 MG TABLET 2.5 MG PO ×2 (11:26→17:33)
[2025-04-06] MEDS: DIGOXIN 500 MCG/2 ML AMPUL 125 MCG IV ×3 (11:29→21:45)
[2025-04-06] MEDS: ALBUMIN HUMAN 25 GM/100 ML PREMIX IV (11:31)
--- NOTE | 2025-04-06 11:36 | PC.NURSE ---
informed pt of mri, pt refused, yelling i am not going anywhere until my niece gets here pt agitated, took of venti mask and threw it on the bed. dr ann aware of refusal and mri dept.
--- NOTE | 2025-04-06 12:37 | SWNOTE1 ---
SW stopped in to speak with pt. Pt lives at home alone, voiced he was doing alright at home, the best he can. Pt has been mostly using a wheelchair, has a walker at home. Pt has been following up with wound care and also has been going to see his [employer] DIRECTOR Dara Eisenberg. Pt stated he fired his home health company 2x. He stated they tried to change his medications and he felt that was not for them to do. SW asked about his home oxygen. He stated he has his oxygen from a person that and he has everything except portability. SW explained we will have to complete another walk test to see if he qualifies. Pt voiced frustration as he already has everything. SW explained that a [employer] company will not just provide him with portability if they do not supply him with oxygen. Pt has a venti mask on. He voiced frustration with the mask and felt it was going in to his eye. Nurse came in room as pt's stats were down to 81%. She encouraged pt to wear mask since his stats are dipping. She did let pt know the next step would be bipap, but pt has voiced that he would not wear it. SW attempted to speak with pt about code status. Pt is a full code. Pt has refused MRI and refusing Bipap if needed. SW asked pt if he would like everything done if he coded? Pt voiced he does want everything done. SW did explain that right now he is not doing well and again the next step may be to be placed on BIPAP. Pt stated he does not want BIPAP. SW attempted to explain that would be next step if he declines. Pt voiced frustration and became agitated. SW advised pt to take some time to think about it. Pt was wearing venti mask appropriately at this time and stats coming up. SW advised pt that SW will be back later today to see how he is doing. Pt in agreement.
--- NOTE | 2025-04-06 12:42 | PM.CN ---
Consult Note: [facility] Data of Consult Consult date: 04/06/25 Requesting Physician: Erendira Richard MD Primary Care Provider: GARRETT QUINTANA Consult Narrative Reason for consult: Right diabetic foot ulcer/infection Narrative: Patient is a 64M with with multiple medical comorbidities. He underwent right transmetatarsal amputation roughly 1 year ago for diabetic foot infection. And has been following with our wound center and seeing MARY Mendiola for bilateral venous ulcerations which is since healed. A new ulceration on his plantar lateral right foot has developed and patient was sent to the emergency department yesterday secondary to weakness, malaise and lethargy. He was found to be in A-fib with RVR as well as acute on chronic respiratory failure. He has leukocytosis of 18,000 and x-rays of his right foot taken yesterday are concerning for osteomyelitis at the amputation site of the metatarsals. At bedside patient relates that he is feeling somewhat better. He relates that the new ulceration developed approximately 10 days ago and had not noticed any signs of infection recently although it is difficult for him to evaluate his foot properly. He relates that his appetite is better today. MRI pending cc:: CC: Erendira Richard MD [facility] Medical History (Updated 04/06/25 @ 12:49 by Rc Curtis DPM) Encounter for intubation ?Z01.818 - Encounter for other preprocedural examination (ICD-10) Difficult intubation ?T88.4XXA - Failed or difficult intubation, initial encounter (ICD-10) KRISTINE (acute kidney injury) ?N17.9 - Acute kidney failure, unspecified (ICD-10) Chronic kidney disease ?N18.9 - Chronic kidney disease, unspecified (ICD-10) Cardiomyopathy ?I42.9 - Cardiomyopathy, unspecified (ICD-10) Atrial flutter with rapid ventricular response ?I48.92 - Unspecified atrial flutter (ICD-10) Hyperkalemia ?E87.5 - Hyperkalemia (ICD-10) Ulcer of left lower extremity, limited to breakdown of skin ?L97.921 - Non-pressure chronic ulcer of unspecified part of left lower leg limited to breakdown of skin (ICD-10) New onset a-fib ?I48.91 - Unspecified atrial fibrillation (ICD-10) COPD (chronic obstructive pulmonary disease) ?J44.9 - Chronic obstructive pulmonary disease, unspecified (ICD-10) Morbid obesity ?E66.01 - Morbid (severe) obesity due to excess calories (ICD-10) Pneumonia ?J18.9 - Pneumonia, unspecified organism (ICD-10) Type 2 diabetes mellitus with diabetic polyneuropathy ?E11.42 - Type 2 diabetes mellitus with diabetic polyneuropathy (ICD-10) Acute osteomyelitis of right foot ?M86.171 - Other acute osteomyelitis, right ankle and foot (ICD-10) Abscess of right foot ?L02.611 - Cutaneous abscess of right foot (ICD-10) Cellulitis ?L03.90 - Cellulitis, unspecified (ICD-10) Edema, peripheral ?R60.0 - Localized edema (ICD-10) Upper respiratory infection ?J06.9 - Acute upper respiratory infection, unspecified (ICD-10) MURALI (obstructive sleep apnea) ?G47.33 - Obstructive sleep apnea (adult) (pediatric) (ICD-10) Smoker ?F17.200 - Nicotine dependence, unspecified, uncomplicated (ICD-10) Chronic respiratory failure with hypoxia ?J96.11 - Chronic respiratory failure with hypoxia (ICD-10) Dizziness ?R42 - Dizziness and giddiness (ICD-10) Diabetes ?E11.9 - Type 2 diabetes mellitus without complications (ICD-10) Surgical History H/O hernia repair ?Z98.890 - Other specified postprocedural states (ICD-10) ?Z87.19 - Personal history of other diseases of the digestive system (ICD-10) History of tonsillectomy ?Z90.89 - Acquired absence of other organs (ICD-10) History of appendectomy ?Z90.49 - Acquired absence of other specified parts of digestive tract (ICD-10) Family History Grandfather Family history of CHF (congestive heart failure) Family history of diabetes mellitus Family history of hypertension Family history of myocardial infarction Family history of stroke Mother Family history of cancer Social History Within the past year, how often did you have a drink containing alcohol: never Score interpretation: A score less than 4 is consistent with normal alcohol consumption. 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 Highest level of school completed/degree received: 10th grade Are you now , , , , never or living with a partner: Little interest or pleasure in doing things: not at all Feeling down, depressed, or hopeless: not at all Feel stressed/tense/nervous/anxious/difficulty sleeping: not at all Meds Home Medications and Allergies Home Medications ?Medication ?Instructions ?Recorded ?Confirmed ?Type glipizide 5 mg tablet 5 mg PO BID #60 tabs 03/30/24 04/05/25 Rx pen needle, diabetic 31 gauge x #50 ea 03/30/24 04/06/25 Rx 12/03 apixaban 5 mg tablet (Eliquis) 5 mg PO BID 04/05/25 04/06/25 History atorvastatin 80 mg tablet 80 mg PO .QHS 04/05/25 04/06/25 History furosemide 40 mg tablet 40 mg PO DAILY 04/05/25 04/06/25 History gabapentin 300 mg capsule 600 mg PO .QHS 04/05/25 04/06/25 History insulin glargine 100 unit/mL (3 30 unit subcut .QHS 04/05/25 04/06/25 History mL) subcutaneous pen (Lantus Solostar U-100 Insulin) metoprolol tartrate 50 mg tablet 50 mg PO BID 04/05/25 04/06/25 History quetiapine 100 mg tablet 100 mg PO .QHS 04/05/25 04/06/25 History Allergies Allergy/AdvReac Type Severity Reaction Status Date / Time No Known Drug Allergies Allergy Verified 04/05/25 14:58 Exam Narrative Exam Narrative: Skin: Ulceration to the plantar lateral right midfoot. Negative probe to bone. Diffuse erythema noted of his plantar foot. No purulence but there is serosanguineous drainage. Ulcer base is fibrotic. Vascular: Pedal pulses are nonpalpable. No calf pain on squeeze Musculoskeletal: Ankle joint dorsiflexes to neutral but not past. No pain with active or passive range of motion of the ankle Neuro: Absent protective and vibratory sensation Constitutional Vital Signs, click to edit/add: Last Vital Signs Temp 98 F 04/06/25 04:00 Pulse 88 04/06/25 12:40 Resp 17 04/06/25 12:40 BP 116/75 04/06/25 12:00 Pulse Ox 86 L 04/06/25 12:40 O2 Del Method Nasal Cannula 04/06/25 12:00 O2 Flow Rate 6 04/06/25 12:40 FiO2 55 04/06/25 11:05 Results Labs Labs: Short CBC 04/05/25 04/06/25 Range/Units 15:00 05:56 WBC 18.6 H 17.8 H (4.0-11.0) 10^3/uL Hgb 14.9 14.0 (14.0-18.0) g/dL Hct 43.2 40.8 L (42.0-54.0) % Plt Count 284 268 (150-450) 10^3/uL BMP 04/05/25 04/06/25 04/06/25 15:00 01:02 05:56 Sodium 125 L 129 L 130 L Potassium 4.0 4.1 3.5 Chloride 89 L 91 L 94 L Carbon Dioxide 29.3 29.4 31.1 BUN 29.0 H 33.0 H 33.0 H Creatinine 1.45 H 1.52 H 1.33 H Glucose 499 H 633 H* 460 H Calcium 10.1 9.8 9.7 Liver Function 04/05/25 04/06/25 Range/Units 15:00 05:56 Total Bilirubin 1.5 H 0.9 (0.2-1.0) mg/dL AST 11 L 15 (15-37) U/L ALT 14 L 13 L (16-63) U/L Alkaline Phosphatase 143 H 127 H (46-116) U/L Albumin 2.1 L 1.8 L (3.4-5.0) g/dL Urine 04/05/25 Range/Units 16:05 Urine Color Lt. yellow (YELLOW) Urine Clarity Sl cloudy (CLEAR) Urine pH 6.0 (5.0-9.0) Ur Specific [place] 1.010 (1.005-1.025) Urine Protein 30 A (NEG/TRACE) mg/dL Urine Glucose (UA) >=1000 A (NEGATIVE) mg/dL Assessment and Plan Assessment and Plan (1) Atrial fibrillation with RVR: (2) Sepsis: Qualifiers: Sepsis type: methicillin resistant Staphylococcus aureus Sepsis acute organ dysfunction status: with acute organ dysfunction Severe sepsis acute organ dysfunction type: acute respiratory failure Acute respiratory failure type: with hypercapnia Severe sepsis shock status: without septic shock Qualified Code(s): A41.02 - Sepsis due to Methicillin resistant Staphylococcus aureus; R65.20 - Severe sepsis without septic shock; J96.02 - Acute respiratory failure with hypercapnia (3) Bacteremia: (4) Diabetic foot ulcer: Qualifiers: Diabetic foot ulcer location: midfoot Diabetes mellitus type: type 2 Laterality: right Non-pressure ulcer stage: with fat layer exposed Qualified Code(s): E11.621 - Type 2 diabetes mellitus with foot ulcer; L97.412 - Non-pressure chronic ulcer of right heel and midfoot with fat layer exposed (5) Osteomyelitis: Qualifiers: Osteomyelitis type: chronic, with draining sinus Osteomyelitis location: foot Laterality: right Qualified Code(s): M86.471 - Chronic osteomyelitis with draining sinus, right ankle and foot (6) Cardiomyopathy: Qualifiers: Cardiomyopathy type: unspecified Qualified Code(s): I42.9 - Cardiomyopathy, unspecified Plan Patient with sepsis and there is concern that the foot is the source. There is bony irregularity noted at the first metatarsal site as well as hypertrophic bone as compared to immediate postop x-rays. I agree with MRI to determine if the foot is the source of his systemic infection. If in fact the foot is a source of infection amputation at the level of the midfoot/Lisfranc's joint would likely lead to secondary deformity and given his comorbidities may not be the best option. Patient is at extremely high risk for major amputation/below-knee amputation. MRI will help delineate if the foot is infected to what extent and level. I also agree with arterial ultrasound which the patient is receiving at the time of this dictation therefore no report is available. Until MRI and vascular studies can be obtained I recommend Santyl and daily dressing changes Will follow
[2025-04-06] MEDS: METOPROLOL TARTRATE 25 MG TABLET 12.5 MG PO ×2 (13:26→21:43)
--- NOTE | 2025-04-06 14:22 | SWNOTE1 ---
Important Message from [employer] reviewed and discussed with patient. Pt. verbalized understanding and signed the form. Original given to patient and copy placed in patient?s chart.
--- NOTE | 2025-04-06 14:22 | SWNOTE1 ---
JOSÉ stopped in pt's room to review IMM with pt. Pt asked if SW figured out anything for his home oxygen and the portability. JOSÉ explained to pt that a DME company will not provide portability if pt is not prescribed oxygen through their company. Pt asked why not? He also stated he has the equipment. JOSÉ explained to pt that he bought that from a friend and his insurance did not approve it, therefore the company can't provide portability. JOSÉ advised he could pay out of pocket for it. He stated it is $5,000. JOSÉ explained to pt that is why we will test him for home oxygen when it gets closer to discharge. Pt voiced understanding.
[2025-04-06] MEDS: IMIPENEM/CILASTATIN SODIUM 500 MG in 0.9 % SODIUM CHLORIDE 100 ML 200 MG IV ×2 (14:26→21:48)
[2025-04-06] MEDS: COLLAGENASE CLOSTRIDIUM HIST. 250 UNITS/GM 30 GRAM TUBE 1 APPLIC TOPICAL (14:26)
--- NOTE | 2025-04-06 14:53 | W.PM.WC ---
Wound Consult Note Assessment and Plan (1) Atrial fibrillation with RVR: (2) Sepsis: Qualifiers: Sepsis type: methicillin resistant Staphylococcus aureus Sepsis acute organ dysfunction status: with acute organ dysfunction Severe sepsis acute organ dysfunction type: acute respiratory failure Acute respiratory failure type: with hypercapnia Severe sepsis shock status: without septic shock Qualified Code(s): A41.02 - Sepsis due to Methicillin resistant Staphylococcus aureus; R65.20 - Severe sepsis without septic shock; J96.02 - Acute respiratory failure with hypercapnia (3) Bacteremia: (4) Diabetic foot ulcer: Reason for Consult: right foot ulcer assessment Assessment and Plan: Patient seen yesterday in outpatient wound clinic. Patient was c/o weakness to his legs after appointment and unable to get himself back in his car. EMS and fire were called for lift assistance and he was transported to [facility] ER due to c/o chest pain and SOB. His BLE venous ulcers have essentially healed. He has dry, scaly skin that easily flakes off. His legs had been open and weeping up until last week. They continue to be closed. Old triad paste in place. Reluctant to remove aggressively as skin is new and do not want to cause new ulcers. Patient had a NEW ulcer yesterday that he says he thinks started when he fell at home over the weekend. He now has an open ulcer to his right plantar foot, more lateral. Dr. Curtis saw patient earlier today and ordered santyl. Peeled off loose skin. Washed legs and wrapped with kerlix to protect. Awaiting vascular study results before applying compression per Dr. Curtis. Qualifiers: Diabetic foot ulcer location: midfoot Diabetes mellitus type: type 2 Laterality: right Non-pressure ulcer stage: with fat layer exposed Qualified Code(s): E11.621 - Type 2 diabetes mellitus with foot ulcer; L97.412 - Non-pressure chronic ulcer of right heel and midfoot with fat layer exposed (5) Osteomyelitis: Qualifiers: Osteomyelitis type: chronic, with draining sinus Osteomyelitis location: foot Laterality: right Qualified Code(s): M86.471 - Chronic osteomyelitis with draining sinus, right ankle and foot (6) Cardiomyopathy: Qualifiers: Cardiomyopathy type: unspecified Qualified Code(s): I42.9 - Cardiomyopathy, unspecified Plan Dr. Curtis to follow patient while in hospital. Please call for any questions or concerns. [phone] Dru Reyes RN, CWON Wound Assessment Patient Status Premedicated Prior to Dressing Change: No Wound Right Foot: Wound Type: diabetic foot ulcer, plantar Is This a Chronic Wound: No Length: 5.5 Width: 3.2 Depth: 0.3 Wound Bed Appearance: [place], Yellow, Pale, Slough and Blisters (blistered edge included in measurements) Percentage Granulated: 20 Percentage Slough: 80 Wound Margins Description: Well Defined Surrounding Tissue Appearance: Macerated (blistered skin is macerated) Surrounding Tissue Temperature: warm (WNL) Drainage Description: Serosanguineous Drainage Amount: Moderate Drainage Odor: No Odor Dressing Status: Changed Primary Dressing: Santyl covered with adaptic Secondary Dressing: Gauze Roll/Wrap Were photos of the wound(s) taken and uploaded to the chart?: Yes Dressing Change Patient Tolerance: Tolerated Well BLE : Wound Type: dry, scaly skin. Recently healed over venous ulcers Primary Dressing: Gauze Roll/Wrap Were photos of the wound(s) taken and uploaded to the chart?: Yes Dressing Change Patient Tolerance: Tolerated Well
--- NOTE | 2025-04-06 15:33 | SWNOTE1 ---
PT did recommend SNF for pt at this time. SW to speak with pt in regards to this.
--- NOTE | 2025-04-06 15:39 | SWNOTE1 ---
SW went to speak with pt, but pt was being cared for by nurse at the time. SW to stop back in later today or tomorrow morning.
--- NOTE | 2025-04-06 20:42 | CA_ITS ---
Patient Name: TYLER SMITH MR#: [id number] : 1960 Exam Date: 04/06/2025 Ordering Doctor: GERALD GOLDBERG ECHOCARDIOGRAM REPORT PROCEDURE: CA ECHO DOPPLER COMPLETE INDICATIONS: A fib COMPARISON: None. DESCRIPTION: COMPLETE ECHOCARDIOGRAM Real-time transthoracic echocardiography with 2D, M-mode, spectral and color flow Doppler performed. QUALITY: Technical quality was adequate. LEFT VENTRICLE: Normal chamber size. Normal left ventricular wall thickness. Systolic function is difficult to assess due to rhythm but appears mildly reduced. LVEF is estimated at 45%. LV EF: Mildly reduced normal left ventricular ejection fraction, (45%). DIASTOLIC: Not adequately assessed due to heart rhythm. ATRIAL SEPTUM: LEFT ATRIUM: Moderate dilatation. RIGHT ATRIUM: Moderate dilatation. RIGHT VENTRICLE: Moderate dilatation. Reduced right ventricular systolic function. TRICUSPID VALVE: Normal mobility and thickness. No stenosis with mild to moderate regurgitation. Moderate pulmonary hypertension. RVSP 50 mmHg. MITRAL VALVE: Normal mobility and thickness. No evidence of mitral valve stenosis. Mild mitral annular calcification. Trivial mitral regurgitation. AORTIC VALVE: Normal trileaflet appearance. Mildly calcified aortic valve. Normal leaflet mobility. No evidence of aortic valve stenosis. No aortic regurgitation. AORTIC ROOT: Normal diameter and appearance, measuring 3.7 cm. The ascending aorta is normal in size measuring 3.3 cm. PULMONIC VALVE: Normal thickness and mobility. No stenosis. Trivial regurgitation. PERICARDIUM: No evidence of pericardial effusion. IVC: Moderate dilatation. Measuring 2.8 cm with no collapse. PLEURA: CONCLUSION: 1. Normal left ventricular size. Systolic function is difficult to assess due to rhythm but appears mildly reduced. Estimated LVEF is 45%. 2. Moderately dilated right ventricle with reduced systolic function. 3. Moderate biatrial dilatation. 4. Mild to moderate tricuspid regurgitation. 5. Moderately elevated right-sided pressures. RVSP is 50 mmHg. Adult Echocardiography Procedure Report Left Ventricle LVEDD (3.7 - 5.6 cm): 5.32 cm LVESD (2.2 - 4.0 cm): 4.46 cm LVIVS thickness (0.6 - 1.2 cm): 0.75 cm LVPW thickness (0.5 - 1.0 cm): 0.97 cm e': 0.18 m/s E - e': 5.11 LVOT Max Gradient: 3.23 mm[Hg] LVOT Area (cm2): 0.90 m/s Peak Velocity (LVOT): 0.90 m/s Mean Velocity (LVOT): 0.60 m/s LVOT Diameter 2.13 cm Left Ventricular Ejection Fraction: 45 % Left Atrium LA Volume Index (2D A2C): 41.89 ml/m2 Left Atrium Systolic Dimension: 3.59 cm Mitral Valve MV E to A Ratio: 180.74 Mitral Valve A-Wave Peak Velocity: 0.01 m/s Mitral Valve E-Wave Peak Velocity: 0.92 m/s Right Ventricle RV Internal Diastolic Dimension: 5.21 cm Aorta AO Root Diam: 3.66 cm Ascending Ao Diam: 3.28 cm Aortic Valve AoV Area (Peak Amauri): 2.70 cm2, 2.70 cm2 AoV Area (VTI): 2.85 cm2, 2.85 cm2 Peak Velocity(Antegrade Flow): 1.19 m/s Peak Gradient(Antegrade Flow): 5.65 mm[Hg] Mean Velocity(Antegrade Flow): 0.81 m/s Mean Gradient(Antegrade Flow): 3.01 mm[Hg] Velocity Time Integral: 17.07 cm Tricuspid Valve Peak Velocity (Regurgitant Flow): 2.67 m/s, 2.97 m/s Pulmonic Valve Peak Velocity: 0.85 m/s Peak Gradient: 3.35 mm[Hg], 2.47 mm[Hg] Right Atrium Right Atrium Systolic Pressure: 147.67 ml, 147.67 ml Dictated by: Ochoa Wilson M.D. on 04/06/2025 at 18:13 Approved by: Ochoa Wilson M.D. on 04/06/2025 at 18:20
[2025-04-06] MEDS: VANCOMYCIN HCL 1,250 MG in 0.9 % SODIUM CHLORIDE 250 ML 250 MG IV (21:48)
[2025-04-06] MEDS: INSULIN GLARGINE 300 UNIT/3 ML INSULN.PEN 35 UNIT SQ (21:49)
[2025-04-06 22:59] LABS: Glucose 530 mg/dL (74-106)
[2025-04-07] VITALS (39 sets, daily range): BP systolic 102–137; BP diastolic 65–101; PULSE 84–109; TEMP 36.5–36.8; O2SAT 92–96
[2025-04-07] MEDS: IMIPENEM/CILASTATIN SODIUM 500 MG in 0.9 % SODIUM CHLORIDE 100 ML 200 MG IV ×4 (02:59→20:05)
[2025-04-07] MEDS: SENNOSIDES/DOCUSATE SODIUM 1 TAB TABLET PO (05:21)
[2025-04-07] MEDS: METOPROLOL TARTRATE 25 MG TABLET 12.5 MG PO ×2 (05:21→11:57)
[2025-04-07] MEDS: ACETAMINOPHEN 325 MG TABLET 650 MG PO (05:44)
[2025-04-07 05:59] LABS: Hematocrit 41.1 % (42.0-54.0); Hemoglobin 13.5 g/dL (14.0-18.0); Mean Corpuscular HGB Conc 32.8 g/dL (29.9-35.2); Mean Corpuscular Hemoglobin 30.7 pg (25.9-34.0); Mean Corpuscular Volume 93.4 fL (80.0-94.0); Platelet Count 294 10^3/uL (150-450); Red Blood Count 4.40 10^6/uL (4.70-6.10); White Blood Count 18.7 10^3/uL (4.0-11.0)
[2025-04-07 06:11] LABS: Anion Gap 7.8; Blood Urea Nitrogen 29.0 mg/dL (7.0-18.0); Calcium 9.0 mg/dL (8.5-10.1); Carbon Dioxide 33.8 mmol/L (21.0-32.0); Chloride 97 mmol/L (98-107); Estimated GFR (African America >60 (>=60 mL/min/1.73m^2); Estimated GFR (Non-African Ame >60 (>=60 mL/min/1.73m^2); Glucose 314 mg/dL (74-106); Potassium 3.6 mmol/L (3.5-5.1); Sodium 135 mmol/L (136-145)
--- NOTE | 2025-04-07 08:05 | CM.NOTE ---
Rounds made with Dr. Richard, discussed plan of care with pt. Pt is in agreement to MRI of the foot today. No discharge today.
[2025-04-07] MEDS: DIGOXIN 125 MCG TABLET PO (08:48)
[2025-04-07] MEDS: MIDODRINE HCL 5 MG TABLET 2.5 MG PO ×3 (08:49→16:31)
[2025-04-07] MEDS: APIXABAN 5 MG TABLET PO ×2 (08:49→20:04)
[2025-04-07] MEDS: INSULIN ASPART 300 UNIT/3 ML PEN SUBQ ×4 (08:50→21:02)
[2025-04-07] MEDS: INSULIN ASPART 300 UNIT/3 ML PEN 6 UNIT SUBQ ×3 (08:51→16:25)
[2025-04-07] MEDS: INSULIN GLARGINE 300 UNIT/3 ML INSULN.PEN 35 UNIT SQ (08:52)
[2025-04-07] MEDS: COLLAGENASE CLOSTRIDIUM HIST. 250 UNITS/GM 30 GRAM TUBE 1 APPLIC TOPICAL (08:53)
[2025-04-07] MEDS: VANCOMYCIN HCL 1,250 MG in 0.9 % SODIUM CHLORIDE 250 ML 166.667 MG IV (10:36)
[2025-04-07] MEDS: HYDROMORPHONE HCL 0.5 MG/0.5 ML SYRINGE 0.25 MG IVP ×3 (10:36→20:04)
--- NOTE | 2025-04-07 10:54 | P.PN_ITS ---
Progress Note: Subjective Subjective Interval history: Patient is feeling better. Heart rate continues to be around 95-100. Blood sugar is above 300. Pain and discomfort in the leg. Patient refused to go down for an MRI yesterday. Exam Narrative Exam Narrative: Morbidly obese. Debilitated. Able to lift up his arms against gravity. Barely able to lift up his legs against gravity. He uses a wheelchair at home. Central obesity. Pale skin and buccal mucosa. Chest is clear, heart is irregular. Abdomen is soft, increased abdominal girth therefore clinically I could not exclude the possibility of intra-abdominal mass organomegaly. Lower extremities examination showed bilateral skin exfoliation's, erythema, hyperpigmentation from the knee down to the feet. Patient has unstable ulcer with the brown drainage measuring about 1 inch and a half on the surface involving the lateral aspect of the right plantar metatarsal. Erythema, induration and drainage. Constitutional Vital Signs, click to edit/add: Last Vital Signs Temp 97.7 F 04/07/25 08:00 Pulse 94 H 04/07/25 10:00 Resp 17 04/07/25 08:00 BP 122/101 H 04/07/25 08:49 Pulse Ox 92 L 04/07/25 10:49 O2 Del Method High Flow Nasal Cannula 04/07/25 10:49 O2 Flow Rate 10 04/07/25 10:49 FiO2 55 04/07/25 04:00 Progress Note: Objective Labs Labs: Short CBC 04/07/25 Range/Units 05:35 WBC 18.7 H (4.0-11.0) 10^3/uL Hgb 13.5 L (14.0-18.0) g/dL Hct 41.1 L (42.0-54.0) % Plt Count 294 (150-450) 10^3/uL BMP 04/06/25 04/07/25 22:00 05:35 Sodium 135 L Potassium 3.6 Chloride 97 L Carbon Dioxide 33.8 H BUN 29.0 H Creatinine 1.03 Glucose 530 H* 314 H Calcium 9.0 Progress Note: A&P Assessment and Plan (1) Atrial fibrillation with RVR: (2) Sepsis: Qualifiers: Sepsis type: methicillin resistant Staphylococcus aureus Sepsis acute organ dysfunction status: with acute organ dysfunction Severe sepsis acute organ dysfunction type: acute respiratory failure Acute respiratory failure type: with hypercapnia Severe sepsis shock status: without septic shock Qualified Code(s): A41.02 - Sepsis due to Methicillin resistant Staphylococcus aureus; R65.20 - Severe sepsis without septic shock; J96.02 - Acute respiratory failure with hypercapnia (3) Bacteremia: (4) Diabetic foot ulcer: Qualifiers: Diabetic foot ulcer location: midfoot Diabetes mellitus type: type 2 Laterality: right Non-pressure ulcer stage: with fat layer exposed Qualified Code(s): E11.621 - Type 2 diabetes mellitus with foot ulcer; L97.412 - Non- pressure chronic ulcer of right heel and midfoot with fat layer exposed (5) Osteomyelitis: Qualifiers: Osteomyelitis type: chronic, with draining sinus Osteomyelitis location: foot Laterality: right Qualified Code(s): M86.471 - Chronic osteomyelitis with draining sinus, right ankle and foot (6) Cardiomyopathy: Qualifiers: Cardiomyopathy type: unspecified Qualified Code(s): I42.9 - Cardiomyopathy, unspecified Plan Sepsis, bacteremia present on admission. Infected right diabetic foot ulcer, osteomyelitis, probable tissue abscess formation. Blood cultures positive for strep however patient previously had MRSA wound culture on the left leg. Urine tract infection. Urine and final blood culture report are pending I started patient on combination of vancomycin and Primaxin Look forward the final culture's identification and sensitivity. Requested MRI of the foot. Patient refused to have an MRI yesterday delaying his care. I spent about 15 minutes today trying to convince him otherwise. Finally agreed to proceed with MRI imaging. Podiatry consultation for the possible need of intervention. Requested arterial study rule out arterial disease. Does not show any significant stenosis. Requested venous study rule out DVT. Does not show any DVT. A-fib with RVR. Patient has a history of A-fib and cardiomyopathy Last EF was 25%. Repeat echo showed ejection fraction had improved up to 45 % Continue Eliquis. Continue beta-michelle Continue digoxin for rate control and cardiomyopathy Avoid MARCIE or ARB or ARNI or MRA due to borderline hypotension Diabetes with hyperglycemia. Adjusting insulin to keep blood sugar between 120 and 180. Continue long-acting insulin, meal insulin and sliding scale. Titrate dose upward to achieve better control. Functional disability. Patient uses a wheelchair at home. Continue PT OT while in the hospital to prevent further decline in his functional status. CKD stage III Kidney function had significantly improved. His creatinine level is better than I have ever seen before on him. At baseline. Continue to monitor kidney function and electrolytes. Chronic medical conditions not listed above, incidental findings seen on labs and imaging. These would need to be addressed. Could be addressed when time and condition are appropriate. Could be addressed in the outpatient setting by PCP collaboration with other needed outpatient providers. Noncompliance. Patient declined to have MRI yesterday delaying his care potentially putting himself at risk of further decompensation. Nursing staff reported that patient is verbally abusive and not compliant with nursing care. His noncompliance and defiance could potentially increase his risk of worsening condition and negative consequences Counseling and education were provided.
[2025-04-07] MEDS: DIGOXIN 500 MCG/2 ML AMPUL 125 MCG IV (11:58)
[2025-04-07] MEDS: ALBUMIN HUMAN 25 GM/100 ML PREMIX IV (11:59)
--- NOTE | 2025-04-07 12:21 | SWNOTE1 ---
SW stopped in to see pt. Pt is on nasal canula, 10 liters. Pt voiced he is feeling a little better today. Stated the EMS workers really messed him up. Pt did ask SW if she could get him a Dr. Justine from the vending machine. SW asked pt's nurse, Irena, and she gave the ok, but it needed to be diet. Pt gave SW his card. SW went to [facility] and purchased a DrNimesh Fletcher with pt's card, total cost of $2.40. SW advised pt that it was $2.40. Pt voiced understanding. At this point pt's needs are uncertain for discharge. SW to continue to follow daily.
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
--- OUTSIDE RECORDS SUMMARY | 2025-04-07 13:19 | XMS_ITS | Clinical Summary ---
Author Organization [facility] Address [facility] [id number] [address] [id number] Care Team Providers Care Track Maintainer Name Role Phone Unavailable Primary Care Provider [...] 2008 Fall Risk Screening 12/02/2023 COVID-19 Vaccine (2024-2 6 season) 2025 06/29/2022, 10/27/2020, 10/01/2020 Influenza Vaccine 03/21/2025 06/23/2022 Medical Devices Not on file
--- OUTSIDE RECORDS SUMMARY | 2025-04-07 13:19 | XMS_ITS | Clinical Summary ---
Author Organization [facility] Address [address] [place] [address] Care Team Providers Care Information Delivery Analyst Name Role Phone Unavailable Primary Care Provider [...]
--- OUTSIDE RECORDS SUMMARY | 2025-04-07 13:19 | XMS_ITS | Patient Health Record ---
Author Organization [facility] in [place] Address [address] [place] [address] Care Team Providers Care Prop And Scenery Maker Name Role Phone Dara Quintana CNP Primary Care Provider Delisa Curt Prado Unavailable [phone] Kylah Leigh Unavailable [phone] Results Component Value Reference Range Notes AFB Specimen Processing (Not yet reviewed by [...] note LC - [facility] Acid Fast Culture (Not [...] Acid Fast Culture Performed at: [facility] Acid Fast Culture Specimen has been received and testing has been initiated. Acid Fast Culture [address] [place], [place] [id number] Acid Fast Culture Specimen has been received and testing has been initiated. Acid Fast Culture Membership Administrator: Yung Saeed PhD, Phone: [phone] Acid Fast Culture Specimen has been received and testing has been initiated. Performing Lab: see note LC - [facility] SEE REPORT - Construction Director Id information not found for OBX-specific field operations farm manager legend Gram Stain Result (Not yet r eviewed by provider) Interpretation: Performing Lab: Notes/Report: Specimen Comment: Test(s) Tissue Culture called to [facility] on 04/10/2024 at Specimen Comment: 13:06 EST [facility] , Gram Stain Result See Below For Report Gram Stain Result Gram Stain Result No white blood cells seen. Gram Stain Result Gram Stain Result Gram Stain Result Gram Stain Result No organisms seen Gram Stain Result Gram Stain Result Performed at: [facility] Gram Stain Result Gram Stain Result [address] [place], [place] [id number] Gram Stain Result Gram Stain Result Membership Administrator: Yung Saeed PhD, Phone: [phone] Gram Stain Result Performing Lab: see note - [facility] SEE REPORT - Construction Director Id information not found for OBX-specific field operations farm manager legend Tissue Culture (Not yet revi ewed by provider) Interpretation: Performing Lab: Notes/Report: Specimen Comment: Test(s) Tissue Culture called to [facility] on 04/10/2024 at Specimen Comment: 13:06 [facility] , Tissue Culture See Below For [...] F Tissue Culture Serratia marcescens Tissue Culture O:SERMAR Isolated Organism: 3.1 Antibiotic [...] LC - [facility] SEE REPORT - Construction Director Id information not found for OBX-specific field operations farm manager legend Anaerobic Culture (Not yet r eviewed by provider) Interpretation: Performing Lab: Notes/Report: LEFT LOWER LEG WOUND [facility] , Anaerobic Culture See Below For Report Anaerobic Culture Anaerobic Culture No anaerobic growth in 72 hours. Anaerobic Culture Performing Lab: see note LC - [facility] Aerobic Culture (Not yet [...] Clindamycin S F Aerobic Culture Organism: Becky youngblood Eleanor Staph Aureus : Aerobic Culture Organism: [...] Culture Organism: Staphylococcus aureus : O:MRSA Isolated O:[facility] Isolated Organism: 2.1 Antibiotic Interpretation CHEN Status [...] Culture Organism: Staphylococcus aureus : O:MRSA Isolated O:[facility] Isolated Organism: 2.1 Antibiotic Interpretation CHEN Status [...] Culture Organism: Staphylococcus aureus : O:MRSA Isolated O:[facility] Isolated Organism: 2.1 Antibiotic Interpretation CHEN Status [...] Culture Organism: Staphylococcus aureus : O:MRSA Isolated O:[facility] Isolated Organism: 2.1 Antibiotic Interpretation CHEN Status [...] Culture Organism: Staphylococcus aureus : O:MRSA Isolated O:[facility] Isolated Organism: 2.1 Antibiotic Interpretation CHEN Status Ciprofloxacin Ciprofloxacin R F Erythromycin Erythromycin R F Gentamicin Gentamicin S F Levofloxacin Levofloxacin R F Linezolid Linezolid S F Oxacillin Oxacillin R F Penicillin Penicillin R F Rifampin Rifampin S F Tetracycline Tetracycline S F Trimethoprim/Sulfametho xazole Trimethoprim/Sulfametho xazole R F Vancomycin Vancomycin S F Clindamycin Clindamycin S F Aerobic Culture Performed at: - [facility] Aerobic Culture Organism: Staphylococcus aureus : O:MRSA Isolated O:[facility] Isolated Organism: 2.1 Antibiotic Interpretation CHEN Status Ciprofloxacin Ciprofloxacin R F Erythromycin Erythromycin R F Gentamicin Gentamicin S F Levofloxacin Levofloxacin R F Linezolid Linezolid S F Oxacillin Oxacillin R F Penicillin Penicillin R F Rifampin Rifampin S F Tetracycline Tetracycline S F Trimethoprim/Sulfametho xazole Trimethoprim/Sulfametho xazole R F Vancomycin Vancomycin S F Clindamycin Clindamycin S F Aerobic Culture [address] [place], [place] [phone] Aerobic Culture Organism: Staphylococcus aureus : O:MRSA [...] F Clindamycin Clindamycin S F Aerobic Culture Membership Administrator: Yung Saeed PhD, Phone: [phone] Aerobic Culture Organism: Staphylococcus aureus : O:MRSA [...] Culture Organism: Staphylococcus aureus : O:MRSA Isolated O:[facility] Isolated Organism: 2.1 Antibiotic Interpretation CHEN Status [...] Culture Organism: Staphylococcus aureus : O:MRSA Isolated O:[facility] Isolated Organism: 2.1 Antibiotic Interpretation CHEN Status [...] Culture Organism: Staphylococcus aureus : O:MRSA Isolated O:[facility] Isolated Organism: 2.1 Antibiotic Interpretation CHEN Status [...] Culture Organism: Staphylococcus aureus : O:MRSA Isolated O:[facility] Isolated Organism: 2.1 Antibiotic Interpretation CHEN Status [...] LC - [facility] SEE REPORT - Construction Director Id information not found for OBX-specific field operations farm manager legend Fungus Stain (Not yet review ed by provider) Interpretation: Performing Lab: Notes/Report: [facility] , Fungus Stain See Below For Report Fungus Stain Fungus Stain ERICK/Calcofluor preparation: no fungus observed. Fungus Stain Performing Lab: see note - [facility] Gram Stain Result (Not yet r eviewed by provider) Interpretation: Performing Lab: Notes/Report: Specimen Comment: Test(s) Tissue Culture called to [facility] on 04/10/2024 at Specimen Comment: 13:06 EST [facility] , Gram Stain Result See Below For Report Gram Stain Result Gram Stain Result No white blood cells seen. Gram Stain Result Gram Stain Result Gram Stain Result Gram Stain Result No organisms seen Gram Stain Result Gram Stain Result Performed at: [facility] Gram Stain Result Gram Stain Result [address] [place], [place] [phone] Gram Stain Result Gram Stain Result Membership Administrator: Yung Saeed PhD, Phone: [phone] Gram Stain Result Performing Lab: see note - [facility] SEE REPORT - Construction Director Id information not found for OBX-specific field operations farm manager legend Anaerobic Cult, Extended Inc ub (Not [...] Fungus (Mycology) Culture Performed at: [facility] Fungus (Mycology) Culture Fungus (Mycology) Culture [address] [place], [place] [id number] Fungus (Mycology) Culture Fungus (Mycology) Culture Membership Administrator: Tyron Saeed PhD, Phone: [phone] Fungus (Mycology) Culture Performing Lab: see note - [facility] SEE REPORT - Construction Director Id information not found for OBX-specific field operations farm manager legend Fungus Stain (Not yet review ed by provider) Interpretation: Performing Lab: Notes/Report: [facility] , Fungus Stain See Below For Report Fungus Stain Fungus Stain ERICK/Calcofluor preparation: no fungus observed. Fungus Stain Performing Lab: see note - [facility] Aerobic Culture (Not yet rev iewed [...] Interpretation CHEN Status Aerobic Culture Performed at: [facility] Aerobic Culture Organism: Staphylococcus aureus : O:MRSA Isolated O:STAAUR Isolated Organism: 1.1 Antibiotic Interpretation CHEN Status Aerobic Culture [address] [place], [place] [id number] Aerobic Culture Organism: Staphylococcus aureus : O:MRSA Isolated O:STAAUR Isolated Organism: 1.1 Antibiotic Interpretation CHEN Status Aerobic Culture Membership Administrator: Yung Saeed PhD, Phone: [phone] Aerobic Culture Organism: Staphylococcus aureus : O:MRSA [...] LC - [facility] SEE REPORT - Construction Director Id information not found for OBX-specific field operations farm manager legend XR foot RT min 3V (Not yet r eviewed by provider) Interpretation: Performing Lab: Notes/Report: Source Facility: [place] [address] XRay Report Signed Patient: TYLER SMITH MR#: [id number] : 1960 Acct:[id number] Age/Sex: 63 / M ADM Date: 04/08/24 Loc: SURGOUT Attending Dr: Curt Curtis D.P.M. Ordering Physician: Curt Curtis D.P.M. Date of Service: 04/08/24 Procedure(s): XR foot RT min 3V Accession Number(s): [id number] cc: Curt Curtis D.P.M.; DARA QUINTANA [place] [address] Patient Name: TYLER SMITH MRN: [id number] date: 1960 Sex: M Assigned Patient Location: [facility] Current Patient Location: [facility] Accession/Order Number: [id number] Exam Date: 04/08/2024 14:30 Report Date: 04/12/2024 [...] Milan M.D. Signed By: 04/12/2448 DD/ TD/TT: Jewelry Dipper: AFB Specimen Processing (Not yet reviewed by [...] rim 800-160 MG 1 tablet Orally twice daily; Duration: 10 days 04/09/2024 Active HYDROcodone-Acetaminophen 5-325 MG 1 tablet as needed Orally every 6 hrs; Duration: 7 days 04/12/2024 Active Problems Problem Type SNOMED Code ICD Code Onset Dates Problem Status W/U Status Risk Notes Problem Foot ulcer due to type 2 diabetes mellitus (6528176429922) Type 2 diabetes mellitus with foot ulcer (E11.621) Active confirmed Problem Chronic ulcer of lower extremity (63443312) Non-pressure chronic ulcer of other part of right lower leg limited to breakdown of skin (L97.811) Active confirmed Problem Chronic non-pressure ulcer of calf extending to fat level (2337065592783130 1) Non-pressure chronic ulcer of other part of right lower leg with fat layer exposed (L97.812) Active confirmed Problem Non-pressure chronic ulcer of other part of left lower leg with fat layer exposed (L97.822) Active confirmed Problem Acute exacerbation of chronic obstructive airways disease (763842584) COPD exacerbation (J44.1) Active confirmed Problem 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 with ulcer (I87.313) Active confirmed Problem Ulcer of left lower leg (disorder) (5857067852177348 3) Leg ulcer, left, limited to breakdown of skin (L97.921) Active confirmed Problem Acute osteomyelitis of ankle and/or foot (388745264) Acute osteomyelitis of right ankle or foot [...] stump (T87.89) Active confirmed Problem Diabetes mellitus (95184519) Diabetes mellitus (E11.9) Active confirmed Problem Polyneuropathy due to type 2 diabetes mellitus (572481186) Controlled type 2 diabetes mellitus with diabetic polyneuropathy, unspecified whether jail insulin use (E11.42) Active confirmed Problem Polyneuropathy due to type 2 diabetes mellitus (697830681) 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) Active confirmed Encounters Encounter Location Date Provider Diagnosis [facility] [address] [place] [address] 04/08/2024 Curt Curtis [facility] (PODIATRY) [address] [place] [address] [place] [address] 04/09/2024 Kylah Leigh Plan Of Treatment Pending Test Test Name Order Date AFB Specimen Processing 03/25/2024 AFB Specimen Processing 03/25/2024 AFB Specimen Processing 03/29/2024 AFB Specimen Processing 04/08/2024 AFB Specimen Processing 04/08/2024 Acid Fast Smear 04/08/2024 Acid Fast Smear 03/25/2024 Acid Fast Culture 03/25/2024 Acid Fast Culture 04/08/2024 XR foot RT min 3V 04/12/2024 Fungus Stain 04/08/2024 Fungus Stain 03/25/2024 Fungus Stain 04/08/2024 Fungus Stain 03/25/2024 Fungus (Mycology) Culture 03/25/2024 Fungus (Mycology) Culture 04/08/2024 Gram Stain Result 04/08/2024 Gram Stain Result 03/25/2024 Gram Stain Result 03/29/2024 Gram Stain Result 04/08/2024 Aerobic Culture 08/10/2024 Aerobic Culture 08/10/2024 Anaerobic Culture 08/10/2024 Anaerobic Cult, Extended Incub 4 Anaerobic Cult, Extended Incub 4 Tissue Culture 04/08/2024 Tissue Culture 03/25/2024 Insurance Providers Payer Name Payer Address Payer Phone Subscriber Number Group Number Insured Name Patient Relationship to Insured Coverage Start Date Coverage End Date [facility] [address] [address] [place], [place] [id number] [phone] [id number] Tyler Smith Self - patient is the insured
--- OUTSIDE RECORDS SUMMARY | 2025-04-07 13:19 | XMS_ITS | Encounter Summary ---
Author Organization [facility] Address [address] [place] [address] Care Team Providers Care Furnace Builder Name Role Phone Dara Eisenberg NURSING INFORMATICS SPECIALIST Primary Care Provider Encounter Details Date Type Department Care Team ([facility] Contact Info) Description 01/26/2025 Abstract [facility] [address] [place] [id number] Sina Mckeon, DPM FACFAS [address] [place] [address] Social History Tobacco Use Types Packs/Day Years [...] on filedocumented in this encounter Care Teams Furnace Builder Relationship Specialty Start Date End Date Dara Eisenberg NP [address] [facility] [address] [place] [address] PCP - General Family Medicine 11/11/24 documented as of this encounter
--- OUTSIDE RECORDS SUMMARY | 2025-04-07 13:19 | XMS_ITS | Clinical Summary ---
Author Organization [facility] Address [address] [place] [address] Care Team Providers Care Research And Development Researcher Name Role Phone Dara Eisenberg NP Primary Care Provider [phone] Allergies No known active allergies Medications insulin [...] uit: Not Asked; Counseling Given: Not Answered [facility] Utilities Answer Date Recorded In the past 12 months has th e [employer], gas, oil, or water company threatened to [...] any time in the past 12 m [facility], were you homeless or living in a [place] health care facility (including now)? Patient unable to answer 08/15/2024 [...] - 6.0 % 08/16/2024 12:[address] [facility] ([facility]) Estimated Average Glucose 189 mg/dL 08/16/2024 12:[address] [facility] ([facility]) Blood Venous blood specimen / Unknown Arterial Line / Unknown 08/15/2024 2:04 PM EST 08/15/2024 2:30 PM EST Chantal Woodruff MD LAB BLOOD ORDERABLES Final Re sult [facility] ([facility]) [address] [place] [address] from Last 3 Months or Most Recently Relevant to Health Maintenance Additional Health Concerns Infection Onset Date Last Indicated MRSA 08/18/2024 08/21/2024 Insurance [employer] Advance Directives * Full Code (Latest Code Status on File) Date Activated Date Inactivated Comments 08/15/2024 12:24 PM 09/09/2024 2:30 PM Care Teams Research And Development Researcher Relationship Specialty Start Date End Date Dara Eisenberg NP [address] [place], [place] [phone] PCP - General Family Medicine 07/21/24
--- OUTSIDE RECORDS SUMMARY | 2025-04-07 13:19 | XMS_ITS | Clinical Summary ---
Author Organization [facility] Address [address] [facility] [place] [address] Care Team Providers Care Vinyl Dipper Name Role Phone Draa Eisenberg NP Primary Care Provider Encounters Date Type Department Care Team Description 01/26/2025 Abstract [facility] [address] [place] [address] Sina Mckeon, DPM FACFAS from Last 3 Months Social History Tobacco Use Types Packs/Day Years Used Date Smoking Tobacco: Never Assessed Sex and Gender Information Value Date Recorded Sex Assigned at Not on file Legal Sex Male 7:20 PM EDT Gender Identity Not on file Sexual Orientation Not on file Plan of Treatment Not on file Insurance [employer] Care Teams Vinyl Dipper Relationship Specialty Start Date End Date Daar Eisenberg NP [address] [place] [phone] PCP - General Family Medicine 11/11/24
--- OUTSIDE RECORDS SUMMARY | 2025-04-07 13:19 | XMS_ITS | Clinical Summary ---
Author Organization [facility] Address [address] [place] [address] Care Team Providers Care Front End Driver Name Role Phone No, Physician Primary Care [...] - 1-dose 75+ series) 2033 Care Teams Front End Driver Relationship Specialty Start Date End Date No, Physician [facility] PCP - General 10/04/16
--- NOTE | 2025-04-07 13:20 | SWNOTE1 ---
JOSÉ reached out to [facility] to see if they allow smoking, waiting to hear back Guera at [facility]. JOSÉ did reach out to Dr. Richard and let him know that PT did recommend rehab and pt is agreeable. Did notify that OT is needed as well for patient.
--- NOTE | 2025-04-07 13:26 | REH.PTDLY ---
Physical Therapy Daily Note PT Daily Note/Assess Start: 04/07/25 13:21 Freq: Status: Active Protocol: Document 04/07/25 13:00 [facility] (Rec: 04/07/25 13:26 [facility] [id number]) Physical Therapy Daily Note/Assessment Time In 12:40 Time Out 01:00 Pain Level 7 Pain Level 7 Subjective Pt initially states he is not doing therapy due to back pain and inability to move. After conversing with pt, he is agreeable to try bed exercises. Rates pain as 7/ 10 in LB and R leg. Therapeutic Exercise 9 Minutes (minutes) Therapeutic Exercise 1 Units Therapeutic Exercise Instructed in AA exs with L LE 10x ea with pt taking Treatment his time and performing exs as slower pace while holding conversation. Pt has fatigue in L LE with SLR. Attempted exs on R LE, pt performs heels slides 5x and then reports he is done as he is having increased pain in LB. Total Therapy 9 Minutes Total Physical 1 Therapy Units Daily Note Summary Pt agreeable to LE supine exs today for improved mobility. Pt declines sitting bedside at this time due to LB pain. athletic turf worker enters room and pt is agreeable to go to SNF to get stronger.
--- OUTSIDE RECORDS SUMMARY | 2025-04-07 13:26 | XMS_ITS | CCD ---
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 on 04-05-2025 Platelets (Bld) [#/Vol] 284 10 3/uL 150-450 [facility] Prothrombin time (PT)Ordered By: Coco Starr on 04-05-2025 PT Coag (PPP) [Time] 11.0 s 9.0-11.6 [facility] RBC Auto (Bld) [#/Vol]Ordere d By: Coco Ro on 04-05-2025 RBC (Bld) [#/Vol] 4.78 10 6/uL 4.70-6.10 [facility] Segmented neutrophils/100 WB C Manual cnt (Bld)Ordered By: Coco Starr on 04-05-2025 Segmented neutrophils/100 WBC (Bld) 88.0 % High 43.0-75.0 [facility] Serum or plasma albumin/glob ulin mass ratioOrdered By: [facility] on 04-05-2025 Albumin/Globulin [Mass ratio] 0.4 {ratio} [facility] Serum or plasma anion gap de terminationOrdered By: [facility] on 04-05-2025 Anion gap [Moles/Vol] 10.7 mmol/L [facility] Yeast detection in urine sed iment by light microscopyOrdered By: Nyasia Hadley on 04-05-2025 Yeast LM Ql (Urine sed) SEEN Abnormal NONE SEEN [facility] POCT PT/INRon 02-15-2025 POCT INR 1.3 High .7-1.2 [facility] Comment on above: Performed By: #### 2 [id number] #### [facility] [address] [place] [address] POCT PT 15.1 second(s) High 8.0-15.0 [facility] Comment on above: Performed By: #### 2 [id number] #### [facility] [address] [place] [address] BMPon 01-26-2025 Anion gap [Moles/Vol] 7 mmol/L Normal 6-16 [facility] Comment on above: Performed By: #### 2 [id number] #### [facility] [address] [place] [address] BUN/Creat Ratio 30 No Units High 10-20 [facility] Comment on above: Performed By: #### 2 [id number] #### [facility] [address] [place] [address] Calcium [Mass/Vol] 9.3 mg/dL Normal 8.9-11.1 [facility] Comment on above: Performed By: #### 2 [id number] #### [facility] [address] [place] [address] Chloride [Moles/Vol] 103 mmol/L Normal 101-111 [facility] Comment on above: Performed By: #### 2 [id number] #### [facility] [address] [place] [address] CO2 [Moles/Vol] 29 mmol/L Normal 21-31 [facility] Comment on above: Performed By: #### 2 [id number] #### [facility] [address] [place] [address] Creatinine [Mass/Vol] 0.8 mg/dL Normal 0.5-1.3 [facility] Comment on above: Performed By: #### 2 [id number] #### [facility] [address] [place] [address] Glucose [Mass/Vol] 214 mg/dL High 55-199 [facility] Comment on above: Performed By: #### 2 [id number] #### [facility] [address] [place] [address] Potassium [Moles/Vol] 3.6 mmol/L Normal 3.5-5.3 [facility] Comment on above: Performed By: #### 2 144900 #### [facility] [address] [place] [address] Sodium [Moles/Vol] 135 mmol/L Normal 135-145 [facility] Comment on above: Performed By: #### 2 [id number] #### [facility] [address] [place] [address] Urea nitrogen [Mass/Vol] 24 mg/dL High 5-21 [facility] Comment on above: Performed By: #### 2 663821 #### [facility] [address] [place] [address] CBC w/ Auto Diffon 5 Basophil Absolute 0.1 E9/L Normal 0.0-0.2 [facility] Comment on above: Performed By: #### 2 540643 #### [facility] [address] [place] [address] Basophils/100 WBC (Bld) 1.4 % Normal 0.0-2.0 [facility] Comment on above: Performed By: #### 2 [id number] #### [facility] [address] [place] [address] Eos Absolute 0.3 E9/L Normal 0.0-0.5 [facility] Comment on above: Performed By: #### 2 [id number] #### [facility] [address] [place] [address] Eosinophils/100 WBC (Bld) 3.5 % Normal 0.0-8.0 [facility] Comment on above: Performed By: #### 2 [id number] #### [facility] [address] [place] [address] Erythrocyte distribution width (RBC) [Ratio] 17.1 % High 10.9-14.2 [facility] Comment on above: Performed By: #### 2 948120 #### [facility] [address] [place] [address] Hematocrit (Bld) [Volume fraction] 36.9 % Low 37.7-49.0 [facility] Comment on above: Performed By: #### 2 [id number] #### [facility] [address] [place] [address] Hemoglobin (Bld) [Mass/Vol] 12.7 g/dL Low 13.5-17.5 [facility] Comment on above: Performed By: #### 2 [id number] #### [facility] [address] [place] [address] Lymph Absolute 1.5 E9/L Normal 1.0-4.0 [facility] Comment on above: Performed By: #### 2 508556 #### [facility] [address] [place] [address] Lymphocytes/100 WBC (Bld) 18.9 % Normal 14.0-50.0 [facility] Comment on above: Performed By: #### 2 977442 #### [facility] [address] [place] [address] MCH (RBC) [Entitic mass] 31.6 pg Normal 27.0-34.0 [facility] Comment on above: Performed By: #### 2 [id number] #### [facility] [address] [place] [address] MCHC (RBC) [Mass/Vol] 34.4 g/dL Normal 31.4-36.0 [facility] Comment on above: Performed By: #### 2 164699 #### [facility] [address] [place] [address] MCV (RBC) [Entitic vol] 91.9 fL Normal 80.0-100.0 [facility] Comment on above: Performed By: #### 2 [id number] #### [facility] [address] [place] [address] [place] Absolute 1.0 E9/L Normal 0.2-1.0 [facility] Comment on above: Performed By: #### 2 974109 #### [facility] [address] [place] [address] Monocytes/100 WBC (Bld) 12.1 % Normal 4.0-14.0 [facility] Comment on above: Performed By: #### 2 973210 #### [facility] [address] [place] [address] Neutro Absolute 5.1 E9/L Normal 2.0-7.5 [facility] Comment on above: Performed By: #### 2 286061 #### [facility] [address] [place] [address] Neutro Auto 64.1 % Normal 36.0-75.0 [facility] Comment on above: Performed By: #### 2 622805 #### [facility] [address] [place] [address] Platelet 226.0 E9/L Normal 150.0-500.0 [facility] Comment on above: Performed By: #### 2 733959 #### [facility] [address] [place] [address] Platelet mean volume (Bld) [Entitic vol] 8.5 fL Normal 6.4-10.8 [facility] Comment on above: Performed By: #### 2 644246 #### [facility] [address] [place] [address] RBC 4.0 E12/L Low 4.3-5.9 [facility] Comment on above: Performed By: #### 2 986891 #### [facility] [address] [place] [address] WBC 7.9 E9/L Normal 4.0-11.0 [facility] Comment on above: Performed By: #### 2 332774 #### [facility] [address] [place] [address] Capillary Glucose POCon Glucose [Mass/Vol] 318 mg/dL High 55-99 [facility] Comment on above: Result Comment: Cindy calle RN/ Performed By: #### 2 [id number] #### [facility] [address] [place] [address] Glucose [Mass/Vol] 203 mg/dL High 55-99 [facility] Comment on above: Result Comment: Cindy calle RN/ Performed By: #### 2 [id number] #### [facility] [address] [place] [address] Inpatient Clinical Summaryon 01-26-2025 Inpatient Clinical Summary Inpatient Clinical Summary [address] [address] Clinical Summary Person Information: Name: TYLER SMITH Age: 64 Years : 1960 Sex: Male PCP: DARA EISENBERG CNP Marital Status: Single Phone: [phone] Race: White Ethnicity: Non- or Language: Lithuanian Visit Id: Visit Reason: Medical problem - major; VERICOSE VEIN TOURNIQUET Speciality: Acuity: Enc Type: Inpatient Med Service: Medical Arrival: 01/24/2025 11:29:33 Discharge: Dispo Type: Admitted as IP to this Hosp Address: [address] [place] [address] Provider Notes: Diagnosis: 1:Severe sepsis; 2:Cellulitis of leg; 3:KRISTINE (acute kidney injury); 4:Atrial fibrillation with RVR; 5: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; 6:Hyponatremia; 7:Noncompliance with medications; 8:Insulin dependent type 2 diabetes mellitus; MCC (current) use of insulin Problems Active Smoker [...] up: With: Address: When: DARA EISENBERG [address], [place] [address] [phone] Business (1) [address], [place] [address] [phone] Business (1) 01/31/2025 11:00 AM Comments: Call Dr for diagnosis based follow up With: Address: When: [facility] [phone] With: Address: When: ARAAnthony SILAS [facility] [address] [place] [address] Business (1) Within 4 weeks Comments: Call for followup appointment With: Address: When: Follow up as scheduled with [facility] With: Address: When: [facility] [address] [place], [place] [id number] Business (1) Within 3 to 5 days Comments: Call for followup appointment Patient Education Information: Atrial Fibrillation; Type 2 Diabetes Mellitus, Diagnosis, Adult; Sepsis, Diagnosis, Adult; Atrial Fibrillation; Cellulitis, Adult; Cellulitis, Adult, Apip-vy-Qbrs; Bleeding Varicose Veins Normal [facility] Inpatient Patient Summaryon 01-26-2025 Inpatient Patient Summary Inpatient Patient Summary [address] [address] Patient Discharge Instructions PERSON INFORMATION Name: TYLER SMITH Date of : 1960 Current Date: 01/26/2025 16:16:53 PHYSICIANS Admitting Physician: Ghassan Ding III, DO Primary Care Physician: DARA EISENBERG CNP PCP Phone Number: [phone] Comment: Discharge Diagnosis: 1:Severe sepsis; 2:Cellulitis of leg; 3:KRISTINE (acute kidney injury); 4:Atrial fibrillation with RVR; 5: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; 6:Hyponatremia; 7:Noncompliance with medications; 8:Insulin dependent type 2 diabetes mellitus; MCC (current) use of insulin Condition at Discharge: [...] Blood culture Follow up: With: Address: When: [facility] [phone] With: Address: When: OZZIE DUGAN [address] [place] [address] Business (1) Within 4 weeks Comments: Call for followup appointment With: Address: When: Follow up as scheduled with [facility] With: Address: When: [facility] [address] [place] [address] Business (1) Within 3 to 5 days Comments: Call for followup appointment With: Address: When: DARA EISENBERG [address] [place] [phone] Business (1) In 3 days 01/27/2025 Comments: [...] YOUR HOSPITAL STAY New Medications [facility] [address], [address] [place], [place] [id number], [phone] cephalexin (cephalexin 500 mg Cap) 1 Capsules [...] Dose: ____ C (more content not included)... [facility] Interdisciplinary Note - Giovany e Manageron 01-26-2025 Interdisciplinary Note - Lap Machine Operator Interdisciplinary Note - Lap Machine Operator Chart reviewed and patient previously rounded on by KALI Carson. Per [facility] portal multiple referrals were put into [facility] for HHC and [facility] was the only one able [...] PT /OT recs are for HHC at [place] and CM rounded with attending Dr Ding and plan is PO ATB at discharge. CM will continue to follow closely for discharge needs. IMM copy at bedside. Normal [facility] Comment on above: Result Comment: Elec tronically Signed By: Sarah Snyder I\.marco\Date and Time Signed: 01/26/25 11:38 EDT PTon 01-26-2025 INR Coag (PPP) [Relative time] 0.97 {INR} Invalid Interpretation Code [facility] Comment on above: Result Comment: INR results are specifically intended to assess patients stabilized on long-term Anticoagulation therapy suggested INR???s ???Less Intensive Anticoagulation??? 2.0 ??? 3.0 Conventional Range 3.0 ??? 4.5 Performed By: #### 2 [id number] #### [facility] [address] [place] [address] PT 10.9 second(s) Normal 9.4-12.5 [facility] Comment on above: Result Comment: 15 [...] the same coagulation reagent and instrumentation as [facility]. Currently there are no coagulation studies available worldwide for children to 14 days, and no normal ranges. Performed By: #### 2 [id number] #### [facility] [address] [place] [address] eGFRon 01-26-2025 eGFR 97 mL/min/1.73 m2 Normal >=59 [facility] Comment on above: Performed By: #### 1 [id number] #### [facility] [address] [place] [address] CBC w/ Auto Diffon 5 Basophil Absolute 0.1 E9/L Normal 0.0-0.2 [facility] Comment on above: Performed By: #### 2 [id number] #### [facility] [address] [place] [address] Basophils/100 WBC (Bld) 0.9 % Normal 0.0-2.0 [facility] Comment on above: Performed By: #### 2 [id number] #### [facility] [address] [place] [address] Eos Absolute 0.1 E9/L Normal 0.0-0.5 [facility] Comment on above: Performed By: #### 2 [id number] #### [facility] [address] [place] [address] Eosinophils/100 WBC (Bld) 0.9 % Normal 0.0-8.0 [facility] Comment on above: Performed By: #### 2 [id number] #### [facility] [address] [place] [address] Erythrocyte distribution width (RBC) [Ratio] 17.1 % High 10.9-14.2 [facility] Comment on above: Performed By: #### 2 248808 #### [facility] [address] [place] [address] Hematocrit (Bld) [Volume fraction] 38.3 % Normal 37.7-49.0 [facility] Comment on above: Performed By: #### 2 [id number] #### [facility] [address] [place] [address] [place] [address] Hemoglobin (Bld) [Mass/Vol] 13.2 g/dL Low 13.5-17.5 [facility] Comment on above: Performed By: #### 2 279754 #### [facility] [address] [place] [address] Lymph Absolute 1.1 E9/L Normal 1.0-4.0 [facility] Comment on above: Performed By: #### 2 122535 #### [facility] [address] [place] [address] Lymphocytes/100 WBC (Bld) 9.3 % Low 14.0-50.0 [facility] Comment on above: Performed By: #### 2 041538 #### [facility] [address] [place] [address] MCH (RBC) [Entitic mass] 31.6 pg Normal 27.0-34.0 [facility] Comment on above: Performed By: #### 2 [id number] #### [facility] [address] [place] [address] MCHC (RBC) [Mass/Vol] 34.5 g/dL Normal 31.4-36.0 [facility] Comment on above: Performed By: #### 2 022918 #### [facility] [address] [place] [address] MCV (RBC) [Entitic vol] 91.5 fL Normal 80.0-100.0 [facility] Comment on above: Performed By: #### 2 955083 #### [facility] [address] [place] [address] [place] Absolute 1.2 E9/L High 0.2-1.0 [facility] Comment on above: Performed By: #### 2 688230 #### [facility] [address] [place] [address] Monocytes/100 WBC (Bld) 10.0 % Normal 4.0-14.0 [facility] Comment on above: Performed By: #### 2 577345 #### [facility] [address] [place] [address] Neutro Absolute 9.1 E9/L High 2.0-7.5 [facility] Comment on above: Performed By: #### 2 230899 #### [facility] [address] [place] [address] Neutro Auto 78.9 % High 36.0-75.0 [facility] Comment on above: Performed By: #### 2 284276 #### [facility] [address] [place] [address] Platelet 228.0 E9/L Normal 150.0-500.0 [facility] Comment on above: Performed By: #### 2 582017 #### [facility] [address] [place] [address] Platelet mean volume (Bld) [Entitic vol] 8.9 fL Normal 6.4-10.8 [facility] Comment on above: Performed By: #### 2 886327 #### [facility] [address] [place] [address] RBC 4.2 E12/L Low 4.3-5.9 [facility] Comment on above: Performed By: #### 2 992034 #### [facility] [address] [place] [address] WBC 11.5 E9/L High 4.0-11.0 [facility] Comment on above: Performed By: #### 2 932737 #### [facility] [address] [place] [address] CKon 01-25-2025 Total CK 64 Int._Unit/L Normal 14-261 [facility] Comment on above: Performed By: #### 2 485597 #### [facility] [address] [place] [address] CMPon 01-25-2025 Albumin [Mass/Vol] 2.9 g/dL Low 3.3-5.0 [facility] Comment on above: Performed By: #### 2 966261 #### [facility] [address] [place] [address] Albumin/Globulin [Mass ratio] 1.0 {ratio} Low 1.1-2.2 [facility] Comment on above: Performed By: #### 2 326750 #### [facility] [address] [place] [address] Alk Phos 85 Int._Unit/L Normal 21-98 [facility] Comment on above: Performed By: #### 2 249938 #### [facility] [address] [place] [address] ALT 16 Int._Unit/L Normal 6-46 [facility] Comment on above: Performed By: #### 2 505473 #### [facility] [address] [place] [address] Anion gap [Moles/Vol] 11 mmol/L Normal 6-16 [facility] Comment on above: Performed By: #### 2 [id number] #### [facility] [address] [place] [address] AST 12 Int._Unit/L Normal 5-43 [facility] Comment on above: Performed By: #### 2 [id number] #### [facility] [address] [place] [address] Bili Total 0.5 mg/dL Normal 0.0-1.1 [facility] Comment on above: Performed By: #### 2 929511 #### [facility] [address] [place] [address] BUN/Creat Ratio 37 No Units High 10-20 [facility] Comment on above: Performed By: #### 2 499545 #### [facility] [address] [place] [address] Calcium [Mass/Vol] 8.9 mg/dL Normal 8.9-11.1 [facility] Comment on above: Performed By: #### 2 088529 #### [facility] [address] [place] [address] Chloride [Moles/Vol] 100 mmol/L Low 101-111 [facility] Comment on above: Performed By: #### 2 438338 #### [facility] [address] [place] [address] CO2 [Moles/Vol] 25 mmol/L Normal 21-31 [facility] Comment on above: Performed By: #### 2 425000 #### [facility] [address] [place] [address] Creatinine [Mass/Vol] 1.2 mg/dL Normal 0.5-1.3 [facility] Comment on above: Performed By: #### 2 165408 #### [facility] [address] [place] [address] Globulin (S) [Mass/Vol] 2.8 g/dL Normal 1.4-4.0 [facility] Comment on above: Performed By: #### 2 691706 #### [facility] [address] [place] [address] Glucose [Mass/Vol] 345 mg/dL High 55-199 [facility] Comment on above: Performed By: #### 2 599854 #### [facility] [address] [place] [address] Potassium [Moles/Vol] 3.6 mmol/L Normal 3.5-5.3 [facility] Comment on above: Performed By: #### 2 880965 #### [facility] [address] [place] [address] Protein [Mass/Vol] 5.7 g/dL Low 6.0-7.8 [facility] Comment on above: Performed By: #### 2 741965 #### [facility] [address] [place] [address] Sodium [Moles/Vol] 132 mmol/L Low 135-145 [facility] Comment on above: Performed By: #### 2 117467 #### [facility] [address] [place] [address] Urea nitrogen [Mass/Vol] 44 mg/dL High 5-21 [facility] Comment on above: Performed By: #### 2 190905 #### [facility] [address] [place] [address] Capillary Glucose POCon Glucose [Mass/Vol] 357 mg/dL High 55-99 [facility] Comment on above: Result Comment: Cindy GAMBOA Performed By: #### 2 [id number] #### [facility] [address] [place] [address] Glucose [Mass/Vol] 351 mg/dL High 55-99 [facility] Comment on above: Result Comment: Cindy GAMBOA Performed By: #### 2 [id number] #### [facility] [address] [place] [address] Glucose [Mass/Vol] 277 mg/dL High 55-99 [facility] Comment on above: Result Comment: Cindy GAMBOA Performed By: #### 2 [id number] #### [facility] [address] [place] [address] Glucose [Mass/Vol] 289 mg/dL High 55-99 [facility] Comment on above: Result Comment: Cindy GAMBOA Performed By: #### 2 [id number] #### [facility] [address] [place] [address] Glucose [Mass/Vol] 282 mg/dL High 55-99 [facility] Comment on above: Result Comment: Cindy GAMBOA Performed By: #### 2 [id number] #### [facility] [address] [place] [address] Glucose [Mass/Vol] 345 mg/dL High 55-99 [facility] Comment on above: Performed By: #### 2 [id number] #### [facility] [address] [place] [address] Glucose [Mass/Vol] 466 mg/dL Abnormal 55-99 [facility] Comment on above: Performed By: #### 2 [id number] #### [facility] [address] [place] [address] [id number] 01-25-2025 HbA1c (Bld) [Mass fraction] 12.6 % High <=5.9 [facility] Comment on above: Performed By: #### 7 [id number] #### [facility] [address] [place] [address] Interdisciplinary Note - Giovany e Manageron 01-25-2025 Interdisciplinary Note - Lap Machine Operator Interdisciplinary Note - Lap Machine Operator JOSÉ spoke with patient in room. No family in room. Patient is alert and oriented and participates in discharge planning. Patient is from home lives with friend Sam. Dr. Ding is following, see notes, saw patient earlier today. Patient was admitted on 01/24/25 , dx with sepsis. Has a consult with Health Technician Hearing. Patient verified PCP, insurance and DME, FWW [...] board updated, and SW contact information provided. SW attempted again determine where 02 was obtained from. He was very firm that she has his own machine that came for a private individual. He reports that he does not have Sam's number as he does not have his phone. He is not sure if Sam is aware that he is at the hospital. CORRECTION: HE HAS HIS OWN MACHINE Normal [facility] Comment on above: Result Comment: Elec tronically Signed By: Yamileth Cali\.marco\Date and Time Signed: 01/25/25 14:53 EDT Interdisciplinary Note - Lap Machine Operator Interdisciplinary Note - Lap Machine Operator JOSÉ spoke with patient in room. No family in room. Patient is alert and oriented and participates in discharge planning. Patient is from home lives with friend Sam. Dr. Ding is following, see notes, saw patient earlier today. Patient was admitted on 01/24/25 , dx with sepsis. Has a consult with Health Technician Hearing. Patient verified PCP, insurance and DME, FWW [...] updated, and SW contact information provided. Normal [facility] Comment on above: Result Comment: Elec tronically Signed By: Zuleyma COATSW SKEINS YARN EXAMINER, Yamileth\.br\Date and Time Signed: 01/25/25 10:44 EDT PTon 01-25-2025 INR Coag (PPP) [Relative time] 1.00 {INR} Invalid Interpretation Code [facility] Comment on above: Result Comment: INR results are specifically intended to assess patients stabilized on long-term Anticoagulation therapy suggested INR???s ???Less Intensive Anticoagulation??? 2.0 ??? 3.0 Conventional Range 3.0 ??? 4.5 Performed By: #### 2 [id number] #### [facility] [address] [place] [address] PT 11.2 second(s) Normal 9.4-12.5 [facility] Comment on above: Result Comment: 15 d ays - 4 weeks 1 - 5 months 6 -11 months 1-5 years 6-10 years 11 -17 years Mean: 11.2 (9.5-12.6) Mean: 11.0 (9.7-12.8) Mean: 11.0 (9.8-13.0) Mean: 11.3 (9.9-13.4) Mean: 11.7 (10.0-14.6) Mean: 11.8 (10.0 - 14.1) Pediatric Reference ranges were obtained from a study by Shimon Tabor et al. prepared from 1437 samples obtained at 7 different centers using the same coagulation reagent and instrumentation as [facility]. Currently there are no coagulation studies available worldwide for children to 14 days, and no normal ranges. Performed By: #### 2 [id number] #### [facility] [address] [employer] [place] [address] eGFRon 01-25-2025 eGFR 67 mL/min/1.73 m2 Normal >=59 [facility] Comment on above: Performed By: #### 1 [id number] #### [facility] [address] [place] [address] BMPon 01-24-2025 Anion gap [Moles/Vol] 12 mmol/L Normal 6-16 [facility] Comment on above: Performed By: #### 2 [id number] #### [facility] [address] [place] [address] BUN/Creat Ratio 41 No Units High 10-20 [facility] Comment on above: Performed By: #### 2 [id number] #### [facility] [address] [place] [address] Calcium [Mass/Vol] 8.7 mg/dL Low 8.9-11.1 [facility] Comment on above: Performed By: #### 2 [id number] #### [facility] [address] [place] [address] Chloride [Moles/Vol] 95 mmol/L Low 101-111 [facility] Comment on above: Performed By: #### 2 [id number] #### [facility] [address] [place] [address] CO2 [Moles/Vol] 25 mmol/L Normal 21-31 [facility] Comment on above: Performed By: #### 2 [id number] #### [facility] [address] [place] [address] Creatinine [Mass/Vol] 1.4 mg/dL High 0.5-1.3 [facility] Comment on above: Performed By: #### 2 [id number] #### [facility] [address] [place] [address] Glucose [Mass/Vol] 431 mg/dL High 55-199 [facility] Comment on above: Performed By: #### 2 [id number] #### [facility] [address] [place] [address] Potassium [Moles/Vol] 3.8 mmol/L Normal 3.5-5.3 [facility] Comment on above: Performed By: #### 2 [id number] #### [facility] [address] [place] [address] Sodium [Moles/Vol] 128 mmol/L Low 135-145 [facility] Comment on above: Performed By: #### 2 [id number] #### [facility] [address] [place] [address] Urea nitrogen [Mass/Vol] 57 mg/dL High 5-21 [facility] Comment on above: Performed By: #### 2 [id number] #### [facility] [address] [place] [address] CBC w/ Auto Diffon 5 Basophil Absolute 0.1 E9/L Normal 0.0-0.2 [facility] Comment on above: Performed By: #### 2 [id number] #### [facility] [address] [place] [address] Basophils/100 WBC (Bld) 0.5 % Normal 0.0-2.0 [facility] Comment on above: Performed By: #### 2 [id number] #### [facility] [address] [place] [address] Eos Absolute 0.1 E9/L Normal 0.0-0.5 [facility] Comment on above: Performed By: #### 2 [id number] #### [facility] [address] [place] [address] Eosinophils/100 WBC (Bld) 0.5 % Normal 0.0-8.0 [facility] Comment on above: Performed By: #### 2 [id number] #### [facility] [address] [place] [address] Erythrocyte distribution width (RBC) [Ratio] 17.1 % High 10.9-14.2 [facility] Comment on above: Performed By: #### 2 [id number] #### [facility] [address] [place] [address] Hematocrit (Bld) [Volume fraction] 43.6 % Normal 37.7-49.0 [facility] Comment on above: Performed By: #### 2 [id number] #### [facility] [address] [place] [address] Hemoglobin (Bld) [Mass/Vol] 14.6 g/dL Normal 13.5-17.5 [facility] Comment on above: Performed By: #### 2 [id number] #### [facility] [address] [place] [address] Lymph Absolute 1.1 E9/L Normal 1.0-4.0 [facility] Comment on above: Performed By: #### 2 [id number] #### [facility] [address] [place] [address] Lymphocytes/100 WBC (Bld) 6.1 % Low 14.0-50.0 [facility] Comment on above: Performed By: #### 2 [id number] #### [facility] [address] [place] [address] MCH (RBC) [Entitic mass] 30.8 pg Normal 27.0-34.0 [facility] Comment on above: Performed By: #### 2 [id number] #### [facility] [address] [place] [address] MCHC (RBC) [Mass/Vol] 33.6 g/dL Normal 31.4-36.0 [facility] Comment on above: Performed By: #### 2 [id number] #### [facility] [address] [place] [address] MCV (RBC) [Entitic vol] 91.8 fL Normal 80.0-100.0 [facility] Comment on above: Performed By: #### 2 [id number] #### [facility] [address] [place] [address] [place] Absolute 1.3 E9/L High 0.2-1.0 [facility] Comment on above: Performed By: #### 2 [id number] #### [facility] [address] [place] [address] Monocytes/100 WBC (Bld) 7.6 % Normal 4.0-14.0 [facility] Comment on above: Performed By: #### 2 [id number] #### [facility] [address] [place] [address] Neutro Absolute 14.8 E9/L High 2.0-7.5 [facility] Comment on above: Performed By: #### 2 [id number] #### [facility] [address] [place] [address] Neutro Auto 85.3 % High 36.0-75.0 [facility] Comment on above: Performed By: #### 2 [id number] #### [facility] [address] [place] [address] Platelet 269.0 E9/L Normal 150.0-500.0 [facility] Comment on above: Performed By: #### 2 [id number] #### [facility] [address] [place] [address] Platelet mean volume (Bld) [Entitic vol] 8.7 fL Normal 6.4-10.8 [facility] Comment on above: Performed By: #### 2 [id number] #### [facility] [address] [place] [address] RBC 4.8 E12/L Normal 4.3-5.9 [facility] Comment on above: Performed By: #### 2 [id number] #### [facility] [address] [place] [address] WBC 17.4 E9/L High 4.0-11.0 [facility] Comment on above: Performed By: #### 2 [id number] #### [facility] [address] [place] [address] Capillary Glucose POCon Glucose [Mass/Vol] 490 mg/dL Abnormal 55-99 [facility] Comment on above: Result Comment: Cindy calle RN/ Performed By: #### 2 [id number] #### [facility] [address] [place] [address] ED Clinical Summaryon 2024 ED Clinical Summary ED Clinical Summary [address] [address] ED Clinical Summary Person Information Name: TYLER SMITH/Severino Age: 64 Years : 1960 Sex: Male Language: Lithuanian PCP: DARA EISENBERG CNP Marital Status: Single Phone: [phone] Visit Id: Visit Reason: Medical problem - major; VERICOSE VEIN TOURNIQUET Speciality: Acuity: 2 Enc Type: Inpatient Med Service: Medical Arrival: 01/24/2025 11:29:33 Discharge: LOS: 000 07:25 Checkin: 01/24/2025 11:29:33 Checkout: 01/24/2025 18:54:25 Dispo Type: Admitted as IP to this [facility] EVENTS: Event Name Event Status Request [...] 18:23:37 Patient Care Request 01/24/2025 18:23:37 ADDRESS: [address] [place] [id number] PHYS DOC NOTES: MEDICAL INFORMATION: Prescriptions Given: New Medications [id number], [address], [place] [id number], [phone] doxycycline (doxycycline hyclate 100 mg Cap) 1 Capsules By Mouth 2 times a day for 7 Days. Refills: 0. PATIENT EDUCATION INFORMATION: Instructions: Cellulitis, Adult, Iuos-zp-Aczw; Bleeding Varicose Veins Follow up: With: Address: When: DARA EISENBERG [address], [place] [phone] Business (1) In 3 days 01/27/2025 Comments: Call Dr for diagnosis based follow up DIAGNOSIS: 1:Severe sepsis; 2:Cellulitis of leg; 3:KRISTINE (acute kidney injury); 4:Atrial fibrillation with RVR; 5: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; 6:Hyponatremia; 7:Noncompliance with medications Normal [facility] ED Note-Physicianon 01-25-20 ED Note-Physician [...] of the patient. Sepsis Data [x] Patient's [place] body weight was considered in sepsis fluid [...] not included)... Normal [facility] Comment on above: Result Comment: Elec tronically Signed By: Puneet Jung PA-C\.br\Date and Time Signed: 01/24/25 13:02 EDT\.br\Electronically Co-Signed By: Puneet Jung PA-C.br\Date and Time Co-Signed: 01/24/25 15:25 EDT\.br\Electronically Co-Signed By: Puneet Jung PA-C.br\Date and Time Co-Signed: 01/24/25 16:27 EDT\.br\Electronically Co-Signed By: Manuel Fletcher M.D.\.br\Date and Time Co-Signed: 01/24/25 18:08 EDT ED Patient Summaryon 025 ED Patient Summary ED Patient Summary [address] [address] Patient Discharge Instructions Person Information Name: TYLER SMITH Age: 64 Years Arrival Date: 01/24/2025 11:29:33 Discharge Diagnosis: 1:Severe sepsis; 2:Cellulitis of leg; 3:KRISTINE (acute kidney injury); 4:Atrial fibrillation with RVR; 5: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; 6:Hyponatremia; 7:Noncompliance with medications Primary Care Physician: DARA EISENBERG CNP Provider Information Primary Provider: Manuel Fletcher M.D. Advanced Gis Physical Scientist:Puneet Jung PA-C The exam and treatment you received in the Emergency Department were for an urgent problem and are not intended as complete care. It is important that you follow up with a doctor, nurse practitioner, or physician???s assistant director of public works for ongoing care. If your symptoms become worse or you do not improve as expected and you are unable to reach your usual health care provider, you should return to the Emergency Department. We are available 24 hours a day. TYLER SMITH has been given the following list of patient education materials, prescriptions and follow-up instructions: Follow-up Instructions: With: Address: When: DARA EISENBERG [address], [place] [phone] Business (1) In 3 days 01/27/2025 Comments: Call Dr for diagnosis based follow up In the event that this physician does not participate in your insurance network, please consult with your insurance company to find a nearby participating provider. Patient Education Materials: Cellulitis, Adult, Vdmw-nd-Gvzh; Bleeding Varicose Veins A MESSAGE TO ALL PATIENTS REGARDING OPIOIDS PRESCRIPTION OPIOIDS: WHAT YOU NEED TO KNOW Prescription opioids can be used to help relieve xmbsgdmd-nm-tqrqcn pain and are often prescribed following a [...] toilet, f (more content not included)... Normal [facility] Lactic Acidon 01-24-2025 Lactic Acid Lvl 1.0 mmol/L Normal 0.5-2.2 [facility] Comment on above: Performed By: #### 2 [id number] #### [facility] [address] [place] [address] PT & PTTon 01-24-2025 INR Coag (PPP) [Relative time] 1.03 {INR} Invalid Interpretation Code [facility] Comment on above: Result Comment: INR results are specifically intended to assess patients stabilized on long-term Anticoagulation therapy suggested INR???s ???Less Intensive Anticoagulation??? 2.0 ??? 3.0 Conventional Range 3.0 ??? 4.5 Performed By: #### 1 [id number] #### [facility] [address] [place] [address] PT 11.5 second(s) Normal 9.4-12.5 [facility] Comment on above: Result Comment: 15 [...] the same coagulation reagent and instrumentation as [facility]. Currently there are no coagulation studies available worldwide for children to 14 days, and no normal ranges. Performed By: #### 1 [id number] #### [facility] [address] [place] [address] PTT 27.7 second(s) Normal 25.1-36.5 [facility] Comment on above: Result Comment: Para [...] the same coagulation reagent and instrumentation as [facility]. Currently there are no coagulation studies available worldwide for children to 14 days, and no normal ranges. Heparin therapeutic range (represented by Anti-Factor Xa activity of 0.2 - 0.4 U/mL) corresponds to PTT of 56.6 - 109.0 sec. Performed By: #### 1 [id number] #### [facility] [address] [place] [address] Pre-Arrival Noteon Pre-Arrival Note Pre-Arrival Note Pre-Arrival Summary Name: , Current Date: 01/24/2025 11:30:22 EDT Gender: Date of : Age: Pre-Arrival Type: EMS ETA: 01/24/2025 11:50:00 EDT Primary Care Physician: Presenting Problem: varicose vein tourniquet Pre-Arrival User: [address] Referring Source: Location: [place] Completion Date/Time: 01/24/2025 11:20:00 [facility] Emergency Department Pre-Hospital Report Form Vital Signs: Pre-Hospital Report: Treatment in Route: Response to Treatment: Misc. Issues: Normal [facility] Procalcitoninon 01-24-2025 Procalcitonin .09 ng/mL Normal .00-.50 [facility] Comment on above: Result Comment: <0.5 [...] to 24 hours. Performed By: #### 2 [id number] #### [facility] [address] [place] [address] Troponin 0 Hr.on 01-24-2025 Troponin HS 4.60 pg/mL Low 15.90-38.40 [facility] Comment on above: Result Comment: The 95% CI (Confidence Interval) PPV (Positive Predictive Value) for myocardial infarction in females is 38 pg/mL, in males 51 pg/mL. The results should be used in conjunction with clinical conditions of myocardial infarction. (Access High Sensitivity Troponin I Instructions For Use, Charli Barnstead, February 2018) Performed By: #### 1 [id number] #### [facility] [address] [place] [address] UA with Cult Rflxon 01-25-20 25 Color (U) Light-Yellow Normal Yellow [facility] Comment on above: Result Comment: Micr oscopic readings are only performed on those samples that meet specific criteria set forth by [facility]. Performed By: #### 4 [id number] #### [facility] [address] [place] [address] Ketones Ql (U) Negative Normal Negative [facility] Comment on above: Performed By: #### 4 [id number] #### [facility] [address] [place] [address] UA Blood 1+ mg/dL Abnormal Negative [facility] Comment on above: Performed By: #### 4 [id number] #### [facility] [address] [place] [address] UA Clarity Clear Normal Clear [facility] Comment on above: Performed By: #### 4 [id number] #### [facility] [address] [place] [address] UA Glucose 4+ mg/dL Abnormal Negative [facility] Comment on above: Performed By: #### 4 [id number] #### [facility] [address] [place] [address] UA Leuk Est Negative Normal Negative [facility] Comment on above: Performed By: #### 4 [id number] #### [facility] [address] [place] [address] UA Mucous Trace Normal Negative [facility] Comment on above: Performed By: #### 4 [id number] #### [facility] [address] [place] [address] UA Nitrite Negative Normal Negative [facility] Comment on above: Performed By: #### 4 [id number] #### [facility] [address] [place] [address] UA pH 5.0 Invalid Interpretation Code 5.0-9.0 [facility] Comment on above: Performed By: #### 4 [id number] #### [facility] [address] [place] [address] UA Protein Negative Normal Negative [facility] Comment on above: Performed By: #### 4 [id number] #### [facility] [address] [place] [address] UA RBC 4-20 Abnormal 0-3 [facility] Comment on above: Performed By: #### 4 [id number] #### [facility] [address] [place] [address] UA Spec Grav 1.020 Invalid Interpretation Code 1.005-1.030 [facility] Comment on above: Performed By: #### 4 [id number] #### [facility] [address] [place] [address] UA Urobilinogen Negative Normal Negative [facility] Comment on above: Performed By: #### 4 [id number] #### [facility] [address] [place] [address] UA WBC 0-5 Normal 0-5 [facility] Comment on above: Performed By: #### 4 [id number] #### [facility] [address] [place] [address] Urobilinogen (U) [Mass/Vol] Negative Normal Negative [facility] Comment on above: Performed By: #### 4 [id number] #### [facility] [address] [place] [address] UA Spec Desc Clean Catch Normal [facility] Comment on above: Performed By: #### 4 [id number] #### [facility] [address] [place] [address] XR Chest 2 Viewson XR Chest 2 [...] Krishna Ray MD Transcribed by: UMU Technologist: TREE TOPPER Normal [facility] eGFRon 01-24-2025 eGFR 55 mL/min/1.73 m2 Low >=59 [facility] Comment on above: Performed By: #### 1 [id number] #### [facility] [address] [place] [address] HbA1c HPLC (Bld) [Mass fract ion]on 11-05-2024 HbA1c (Bld) [Mass fraction] 10.1 % [facility] CBC WITH AUTO DIFFERENTIALon 09-09-2024 Basophils (Bld) [#/Vol] 0.05 10*3/uL Normal 0.00-0.20 [facility] Comment on above: Performed By: #### L [id number] ####[facility] (BEAKER)[address] [place] [address] Basophils/100 WBC (Bld) 0.6 % Normal 0.0-1.0 [facility] Comment on above: Performed By: #### L [id number] ####[facility] ([facility])[address] [place] [address] Eosinophils (Bld) [#/Vol] 0.43 10*3/uL Normal 0.00-0.50 [facility] Comment on above: Performed By: #### L [id number] ####[facility] ([facility]AKER)[address] [place] [address] Eosinophils/100 WBC (Bld) 5.0 % Normal 0.0-6.0 [facility] Comment on above: Performed By: #### L [id number] ####[facility] (BEAKER)[address] [place] [address] Erythrocyte distribution width (RBC) [Ratio] 15.1 % High 11.5-15.0 [facility] Comment on above: Performed By: #### L [id number] ####[facility] ([facility]AKER)[address] [place] [address] ERYTHROCYTE MEAN CORPUSCULAR HEMOGLOBIN CONCENTRATION (G/DL) BY AUTOMATED 31.1 g/dL Low 32.0-35.0 [facility] Comment on above: Performed By: #### L [id number] ####[facility] ([facility]ER)[address] [place] [address] Hematocrit (Bld) [Volume fraction] 48.8 % Normal 39.0-55.0 [facility] Comment on above: Performed By: #### L [id number] ####[facility] (BEAKER)[address] [place] [address] Hemoglobin (Bld) [Mass/Vol] 15.2 g/dL Normal 13.0-17.0 [facility] Comment on above: Performed By: #### L [id number] ####[facility] ([facility]ER)[address] [place] [address] Immature granulocytes (Bld) [#/Vol] 0.05 10*3/uL Normal 0.00-0.20 [facility] Comment on above: Performed By: #### L [id number] ####[facility] (BEAKER)[address] [place] [address] Immature granulocytes/100 WBC (Bld) 0.6 % Normal 0.0-1.0 [facility] Comment on above: Performed By: #### L [id number] ####[facility] ([facility]ER)[address] [place] [address] Lymphocytes (Bld) [#/Vol] 1.59 10*3/uL Normal 1.20-4.00 [facility] Comment on above: Performed By: #### L [id number] ####[facility] ([facility]ER)[address] [place] [address] Lymphocytes/100 WBC (Bld) 18.5 % Low 20.0-45.0 [facility] Comment on above: Performed By: #### L [id number] ####[facility] ([facility]ER)[address] [place] [address] MCH (RBC) [Entitic mass] 28.8 pg Normal 27.0-33.0 [facility] Comment on above: Performed By: #### L [id number] ####[facility] ([facility]AKER)[address] [place] [address] MCV (RBC) [Entitic vol] 92.6 fL Normal 82.0-98.[address] [facility] Comment on above: Performed By: #### L [id number] ####[facility] (BEAKER)[address] [place] [address] Monocytes (Bld) [#/Vol] 0.90 10*3/uL Normal 0.10-1.00 [facility] Comment on above: Performed By: #### L [id number] ####[facility] ([facility]ER)[address] [place] [address] Monocytes/100 WBC (Bld) 10.5 % Normal 5.0-12.[address] [facility] Comment on above: Performed By: #### L [id number] ####[facility] (BEAKER)[address] [place] [address] Neutrophils (Bld) [#/Vol] 5.56 10*3/uL Normal 1.60-7.60 [facility] Comment on above: Performed By: #### L [id number] ####[facility] (BEAKER)[address] [place] [address] Neutrophils/100 WBC (Bld) 64.8 % Normal 40.0-72.0 [facility] Comment on above: Performed By: #### L [id number] ####[facility] (BEAKER)[address] [place] [address] NRBC (PER 100 WBCS) BY AUTOMATED COUNT 0.0 % Normal 0 [facility] Comment on above: Performed By: #### L [id number] ####[facility] (BEAKER)[address] [place] [address] PLATELETS (10*3/UL) IN BLOOD AUTOMATED COUNT 208 10*3/uL Normal 150-400 [facility] Comment on above: Performed By: #### L [id number] ####[facility] (BEAKER)[address] [place] [address] RBC (Bld) [#/Vol] 5.27 10*6/uL Normal 4.20-5.70 [facility] Comment on above: Performed By: #### L [id number] ####[facility] (BEAKER)[address] [place] [address] WBC (Bld) [#/Vol] 8.58 10*3/uL Normal 4.00-10.60 [facility] Comment on above: Performed By: #### L [id number] ####[facility] ([facility])[address] [place] [address] DSon 09-09-2024 DS Normal [facility] MAGNESIUMon 09-09-2024 Magnesium [Mass/Vol] 1.7 mg/dL Low 1.9-2.7 [facility] Comment on above: Performed By: #### L [id number] ####[facility] ([facility])[address] [place] [address] PHOSPHORUSon 09-09-2024 Magnesium [Mass/Vol] 3.2 mg/dL Normal 2.5-5.0 [facility] Comment on above: Performed By: #### L [id number] ####[facility] ([facility])[address] [place] [address] POCT GLUCOSE METER UNSOLICIT ED RESULTSon 09-09-2024 Glucose [Mass/Vol] 114 mg/dL High 70-105 [facility] Comment on above: Order Comment: Waive d Testing in the ED is performed under the ED CLIA certificate #[id number]. Result Comment: [email or web address] [email or web address] Performed By: #### L [id number] ####[facility] ([facility])[address] [place] [address] 30on 09-08-2024 30 Normal [facility] 30 Normal [facility] CBC WITH AUTO DIFFERENTIALon 09-08-2024 Basophils (Bld) [#/Vol] 0.06 10*3/uL Normal 0.00-0.20 [facility] Comment on above: Performed By: #### L [id number] ####[facility] ([facility])[address] [place] [address] Basophils/100 WBC (Bld) 0.8 % Normal 0.0-1.[address] [facility] Comment on above: Performed By: #### L [id number] ####[facility] (BEAKER)[address] [place] [address] Eosinophils (Bld) [#/Vol] 0.43 10*3/uL Normal 0.00-0.50 [facility] Comment on above: Performed By: #### L [id number] ####[facility] (BEAKER)[address] [place] [address] Eosinophils/100 WBC (Bld) 5.5 % Normal 0.0-6.0 [facility] Comment on above: Performed By: #### L [id number] ####[facility] (BEAKER)[address] [place] [address] Erythrocyte distribution width (RBC) [Ratio] 15.2 % High 11.5-15.0 [facility] Comment on above: Performed By: #### L [id number] ####[facility] (BEAKER)[address] [place] [address] ERYTHROCYTE MEAN CORPUSCULAR HEMOGLOBIN CONCENTRATION (G/DL) BY AUTOMATED 30.8 g/dL Low 32.0-35.0 [facility] Comment on above: Performed By: #### L [id number] ####[facility] (BEAKER)[address] [place] [address] Hematocrit (Bld) [Volume fraction] 45.4 % Normal 39.0-55.0 [facility] Comment on above: Performed By: #### L [id number] ####[facility] (BEAKER)[address] [place] [address] Hemoglobin (Bld) [Mass/Vol] 14.0 g/dL Normal 13.0-17.0 [facility] Comment on above: Performed By: #### L [id number] ####[facility] (BEAKER)[address] [place] [address] Immature granulocytes (Bld) [#/Vol] 0.03 10*3/uL Normal 0.00-0.20 [facility] Comment on above: Performed By: #### L [id number] ####[facility] (BEAKER)[address] [place] [address] Immature granulocytes/100 WBC (Bld) 0.4 % Normal 0.0-1.0 [facility] Comment on above: Performed By: #### L [id number] ####[facility] ([facility])[address] [place] [address] Lymphocytes (Bld) [#/Vol] 1.82 10*3/uL Normal 1.20-4.00 [facility] Comment on above: Performed By: #### L [id number] ####[facility] ([facility])[address] [place] [address] Lymphocytes/100 WBC (Bld) 23.2 % Normal 20.0-45.0 [facility] Comment on above: Performed By: #### L [id number] ####[facility] ([facility])[address] [place] [address] MCH (RBC) [Entitic mass] 29.1 pg Normal 27.0-33.0 [facility] Comment on above: Performed By: #### L [id number] ####[facility] ([facility])[address] [place] [address] MCV (RBC) [Entitic vol] 94.4 fL Normal 82.0-98.[address] [facility] Comment on above: Performed By: #### L [id number] ####[facility] ([facility])[address] [place] [address] Monocytes (Bld) [#/Vol] 0.88 10*3/uL Normal 0.10-1.00 [facility] Comment on above: Performed By: #### L [id number] ####[facility] (BEAKER)[address] [place] [address] Monocytes/100 WBC (Bld) 11.2 % Normal 5.0-12.[address] [facility] Comment on above: Performed By: #### L [id number] ####[facility] (BEAKER)[address] [place] [address] Neutrophils (Bld) [#/Vol] 4.62 10*3/uL Normal 1.60-7.60 [facility] Comment on above: Performed By: #### L [id number] ####[facility] ([facility])[address] [place] [address] Neutrophils/100 WBC (Bld) 58.9 % Normal 40.0-72.0 [facility] Comment on above: Performed By: #### L [id number] ####[facility] ([facility])[address] [place] [address] NRBC (PER 100 WBCS) BY AUTOMATED COUNT 0.0 % Normal 0 [facility] Comment on above: Performed By: #### L [id number] ####[facility] ([facility])[address] [place] [address] PLATELETS (10*3/UL) IN BLOOD AUTOMATED COUNT 231 10*3/uL Normal 150-400 [facility] Comment on above: Performed By: #### L [id number] ####[facility] ([facility])[address] [place] [address] RBC (Bld) [#/Vol] 4.81 10*6/uL Normal 4.20-5.70 [facility] Comment on above: Performed By: #### L [id number] ####[facility] ([facility])[address] [place] [address] WBC (Bld) [#/Vol] 7.84 10*3/uL Normal 4.00-10.60 [facility] Comment on above: Performed By: #### L [id number] ####[facility] ([facility])[address] [place] [address] MAGNESIUMon 09-08-2024 Magnesium [Mass/Vol] 1.6 mg/dL Low 1.9-2.7 [facility] Comment on above: Performed By: #### L [id number] ####[facility] ([facility])[address] [place] [address] NURSNOTEon 09-08-2024 NURSNOTE Normal [facility] PHOSPHORUSon 09-08-2024 Magnesium [Mass/Vol] 3.4 mg/dL Normal 2.5-5.0 [facility] Comment on above: Performed By: #### L [id number] ####[facility] ([facility])[address] [place] [address] POCT GLUCOSE METER UNSOLICIT ED RESULTSon 09-08-2024 Glucose [Mass/Vol] 244 mg/dL High 70-105 [facility] Comment on above: Order Comment: Waive d Testing in the ED is performed under the ED CLIA certificate #[id number]. Result Comment: droc kol Performed By: #### L [id number] ####[facility] ([facility])[address] [place] [address] Glucose [Mass/Vol] 165 mg/dL High 70-105 [facility] Comment on above: Order Comment: Waive d Testing in the ED is performed under the ED CLIA certificate #[id number]. Result Comment: [email or web address] [email or web address] Performed By: #### L [id number] ####[facility] ([facility])[address] [place] [address] Glucose [Mass/Vol] 110 mg/dL High 70-105 [facility] Comment on above: Order Comment: Waive d Testing in the ED is performed under the ED CLIA certificate #[id number]. Result Comment: [email or web address] [email or web address] Performed By: #### L [id number] ####[facility] ([facility])[address] [place] [address] Glucose [Mass/Vol] 157 mg/dL High 70-105 [facility] Comment on above: Order Comment: Waive d Testing in the ED is performed under the ED CLIA certificate #[id number]. Result Comment: [email or web address] [email or web address] Performed By: #### L [id number] ####[facility] ([facility])[address] [place] [address] 30on 09-07-2024 30 Normal [facility] 30 Normal [facility] BASIC METABOLIC PANELon 08-21 Anion gap [Moles/Vol] 9 mmol/L Normal 7-20 [facility] Comment on above: Performed By: #### L [id number] ####[facility] ([facility])[address] [place] [address] Calcium [Mass/Vol] 9.6 mg/dL Normal 8.6-10.3 [facility] Comment on above: Performed By: #### L [id number] ####[facility] ([facility])[address] [facility] [place] [address] Chloride [Moles/Vol] 100 mmol/L Normal 98-107 [facility] Comment on above: Performed By: #### L [id number] ####[facility] ([facility])[address] [place] [address] CO2 [Moles/Vol] 32 mmol/L High 21-31 [facility] Comment on above: Performed By: #### L [id number] ####[facility] ([facility])[address] [facility] [place] [address] Creatinine [Mass/Vol] 0.78 mg/dL Normal 0.70-1.30 [facility] Comment on above: Performed By: #### L [id number] ####[facility] ([facility])[address] [facility] [place] [address] GLOMERULAR FILTRATION RATE ML/MIN/1.73 SQ M.PREDICTED 99.0 mL/min/1.73m*2 Normal >60.0 [facility] Comment on above: Result Comment: The [facility]???s estimated glomerular filtration rate (eGFR) will no [...] L [id number] ####[facility] ([facility])[address] [place] [address] Glucose [Mass/Vol] 153 mg/dL High 70-100 [facility] Comment on above: Performed By: #### L [id number] ####[facility] ([facility])[address] [place] [address] Potassium [Moles/Vol] 4.1 mmol/L Normal 3.5-5.1 [facility] Comment on above: Performed By: #### L [id number] ####[facility] ([facility])[address] [place] [address] Sodium [Moles/Vol] 137 mmol/L Normal 136-145 [facility] Comment on above: Performed By: #### L [id number] ####[facility] ([facility])[address] [place] [address] Urea nitrogen [Mass/Vol] 19 mg/dL Normal 7-25 [facility] Comment on above: Performed By: #### L [id number] ####[facility] ([facility])[address] [place] [address] UREA NITROGEN/CREATININE (MASS RATIO) IN SER/PLAS 24.4 Normal [facility] Comment on above: Performed By: #### L [id number] ####[facility] ([facility])[address] [place] [address] CBC WITH AUTO DIFFERENTIALon 09-07-2024 Basophils (Bld) [#/Vol] 0.06 10*3/uL Normal 0.00-0.20 [facility] Comment on above: Performed By: #### L [id number] ####[facility] ([facility])[address] [place] [address] Basophils/100 WBC (Bld) 0.8 % Normal 0.0-1.[address] [facility] Comment on above: Performed By: #### L [id number] ####[facility] ([facility])[address] [place] [address] Eosinophils (Bld) [#/Vol] 0.49 10*3/uL Normal 0.00-0.50 [facility] Comment on above: Performed By: #### L [id number] ####[facility] (BEAKER)[address] [place] [address] Eosinophils/100 WBC (Bld) 6.8 % High 0.0-6.0 [facility] Comment on above: Performed By: #### L [id number] ####[facility] ([facility])[address] [place] [address] Erythrocyte distribution width (RBC) [Ratio] 15.3 % High 11.5-15.0 [facility] Comment on above: Performed By: #### L [id number] ####[facility] ([facility])[address] [place] [address] ERYTHROCYTE MEAN CORPUSCULAR HEMOGLOBIN CONCENTRATION (G/DL) BY AUTOMATED 30.9 g/dL Low 32.0-35.0 [facility] Comment on above: Performed By: #### L [id number] ####[facility] ([facility])[address] [place] [address] Hematocrit (Bld) [Volume fraction] 45.9 % Normal 39.0-55.0 [facility] Comment on above: Performed By: #### L [id number] ####[facility] (BEAKER)[address] [place] [address] Hemoglobin (Bld) [Mass/Vol] 14.2 g/dL Normal 13.0-17.0 [facility] Comment on above: Performed By: #### L [id number] ####[facility] ([facility]AKER)[address] [place] [address] Immature granulocytes (Bld) [#/Vol] 0.04 10*3/uL Normal 0.00-0.20 [facility] Comment on above: Performed By: #### L [id number] ####[facility] (BEAKER)[address] [place] [address] Immature granulocytes/100 WBC (Bld) 0.6 % Normal 0.0-1.0 [facility] Comment on above: Performed By: #### L [id number] ####[facility] ([facility])[address] [place] [address] Lymphocytes (Bld) [#/Vol] 1.82 10*3/uL Normal 1.20-4.00 [facility] Comment on above: Performed By: #### L [id number] ####[facility] ([facility])[address] [place] [address] Lymphocytes/100 WBC (Bld) 25.3 % Normal 20.0-45.0 [facility] Comment on above: Performed By: #### L [id number] ####[facility] ([facility])[address] [place] [address] MCH (RBC) [Entitic mass] 29.2 pg Normal 27.0-33.0 [facility] Comment on above: Performed By: #### L [id number] ####[facility] ([facility])[address] [place] [address] MCV (RBC) [Entitic vol] 94.4 fL Normal 82.0-98.[address] [facility] Comment on above: Performed By: #### L [id number] ####[facility] ([facility])[address] [place] [address] Monocytes (Bld) [#/Vol] 0.74 10*3/uL Normal 0.10-1.00 [facility] Comment on above: Performed By: #### L [id number] ####[facility] ([facility])[address] [place] [address] Monocytes/100 WBC (Bld) 10.3 % Normal 5.0-12.[address] [facility] Comment on above: Performed By: #### L [id number] ####[facility] ([facility])[address] [place] [address] Neutrophils (Bld) [#/Vol] 4.04 10*3/uL Normal 1.60-7.60 [facility] Comment on above: Performed By: #### L [id number] ####[facility] ([facility])[address] [place] [address] Neutrophils/100 WBC (Bld) 56.2 % Normal 40.0-72.0 [facility] Comment on above: Performed By: #### L [id number] ####[facility] ([facility])[address] [place] [address] NRBC (PER 100 WBCS) BY AUTOMATED COUNT 0.0 % Normal 0 [facility] Comment on above: Performed By: #### L [id number] ####[facility] ([facility])[address] [place] [address] PLATELETS (10*3/UL) IN BLOOD AUTOMATED COUNT 234 10*3/uL Normal 150-400 [facility] Comment on above: Performed By: #### L [id number] ####[facility] ([facility])[address] [place] [address] RBC (Bld) [#/Vol] 4.86 10*6/uL Normal 4.20-5.70 [facility] Comment on above: Performed By: #### L [id number] ####[facility] ([facility])[address] [place] [address] WBC (Bld) [#/Vol] 7.19 10*3/uL Normal 4.00-10.60 [facility] Comment on above: Performed By: #### L [id number] ####[facility] ([facility])[address] [place] [address] MAGNESIUMon 09-07-2024 Magnesium [Mass/Vol] 1.7 mg/dL Low 1.9-2.7 [facility] Comment on above: Performed By: #### L [id number] ####[facility] ([facility])[address] [place] [address] NURSNOTEon 09-07-2024 NURSNOTE Signed off to Ian engel RN [facility] NURSNOTE HOB up @ 40 degrees, NO c/o of pain, or SOB at this time Urinal at bedside Call light within reach IV INT'd, intact, no redness noted Pulse ox--97% O 2 cont. On pt. Per nasal cannula @ 4 L/min NC Telemetry cont. On pt [facility] NURSNOTE [facility] NURSNOTE Tried to call Elias, pt's brother, no answer, still, at this time, 3rd attempt [facility] NURSNOTE [facility] NURSNOTE Pt's family brought him a hamburger last night, and the pt. Is eating it now. Pt. Encouraged not to eat, since the hamburger has been sitting out all night. Pt. Cont. To eat burger. [facility] NURSNOTE Eyes closed resp. Easy @ 18/min Pulse ox--98% Telemetry cont. On pt [facility] Orders Onlyon 09-07-2024 Orders Only [id number] Tyler Smith 1960 M Date Provider Department Center 09/07/[id number]-IZEVHRWK-PGGJGY, JENN*[facility] [place] [facility] No family history on file [facility] PHOSPHORUSon 09-07-2024 Magnesium [Mass/Vol] 3.5 mg/dL Normal 2.5-5.0 [facility] Comment on above: Performed By: #### L [id number] ####[facility] ([facility]ER)[address] [facility] [place] [address] POCT GLUCOSE METER UNSOLICIT ED RESULTSon 09-07-2024 Glucose [Mass/Vol] 200 mg/dL High 70-105 [facility] Comment on above: Order Comment: Waive d Testing in the ED is performed under the ED CLIA certificate #[id number]. Result Comment: droc kol Performed By: #### L [id number] ####[facility] (BEAKER)[address] [facility] [address] Glucose [Mass/Vol] 211 mg/dL High 70-105 [facility] Comment on above: Order Comment: Waive d Testing in the ED is performed under the ED CLIA certificate #[id number]. Result Comment: [email or web address] ff3 Performed By: #### L [id number] ####[facility] ([facility]ER)[address] [place] [address] Glucose [Mass/Vol] 298 mg/dL High 70-105 [facility] Comment on above: Order Comment: Waive d Testing in the ED is performed under the ED CLIA certificate #[id number]. Result Comment: awul ff3 Performed By: #### L [id number] ####[facility] ([facility])[address] [place] [address] Glucose [Mass/Vol] 155 mg/dL High 70-105 [facility] Comment on above: Order Comment: Waive d Testing in the ED is performed under the ED CLIA certificate #[id number]. Result Comment: [email or web address] ff3 Performed By: #### L [id number] ####[facility] ([facility])[address] [place] [address] 30on 09-06-2024 30 Normal [facility] 30 [facility] BASIC METABOLIC PANELon 08-21 Anion gap [Moles/Vol] 11 mmol/L Normal 7-20 [facility] Comment on above: Performed By: #### L [id number] ####[facility] (BEAKER)[address] [place] [address] Calcium [Mass/Vol] 9.8 mg/dL Normal 8.6-10.3 [facility] Comment on above: Performed By: #### L [id number] ####[facility] ([facility]ER)[address] [place] [address] Chloride [Moles/Vol] 98 mmol/L Normal 98-107 [facility] Comment on above: Performed By: #### L [id number] ####[facility] ([facility]ER)[address] [place] [address] CO2 [Moles/Vol] 31 mmol/L Normal 21-31 [facility] Comment on above: Performed By: #### L [id number] ####[facility] ([facility])[address] [place] [address] Creatinine [Mass/Vol] 0.90 mg/dL Normal 0.70-1.30 [facility] Comment on above: Performed By: #### L [id number] ####[facility] ([facility])[address] [place] [address] GLOMERULAR FILTRATION RATE ML/MIN/1.73 SQ M.PREDICTED 94.8 mL/min/1.73m*2 Normal >60.0 [facility] Comment on above: Result Comment: The [facility]???s estimated glomerular filtration rate (eGFR) will no [...] L [id number] ####[facility] ([facility])[address] [place] [address] Glucose [Mass/Vol] 244 mg/dL High 70-100 [facility] Comment on above: Performed By: #### L [id number] ####[facility] ([facility])[address] [place] [address] Potassium [Moles/Vol] 3.9 mmol/L Normal 3.5-5.1 [facility] Comment on above: Performed By: #### L [id number] ####[facility] ([facility])[address] [place] [address] Sodium [Moles/Vol] 136 mmol/L Normal 136-145 [facility] Comment on above: Performed By: #### L [id number] ####[facility] ([facility])[address] [place] [address] Urea nitrogen [Mass/Vol] 18 mg/dL Normal 7-25 [facility] Comment on above: Performed By: #### L [id number] ####[facility] (BEAKER)[address] [place] [address] UREA NITROGEN/CREATININE (MASS RATIO) IN SER/PLAS 20.0 Normal [facility] Comment on above: Performed By: #### L [id number] ####[facility] ([facility])[address] [place] [address] CBC WITH AUTO DIFFERENTIALon 09-06-2024 Basophils (Bld) [#/Vol] 0.07 10*3/uL Normal 0.00-0.20 [facility] Comment on above: Performed By: #### L [id number] ####[facility] ([facility])[address] [place] [address] Basophils/100 WBC (Bld) 1.0 % Normal 0.0-1.0 [facility] Comment on above: Performed By: #### L [id number] ####[facility] (BEAKER)[address] [place] [address] Eosinophils (Bld) [#/Vol] 0.40 10*3/uL Normal 0.00-0.50 [facility] Comment on above: Performed By: #### L [id number] ####[facility] (BEAKER)[address] [place] [address] Eosinophils/100 WBC (Bld) 5.9 % Normal 0.0-6.0 [facility] Comment on above: Performed By: #### L [id number] ####[facility] (BEAKER)[address] [place] [address] Erythrocyte distribution width (RBC) [Ratio] 15.2 % High 11.5-15.0 [facility] Comment on above: Performed By: #### L [id number] ####[facility] (BEAKER)[address] [place] [address] ERYTHROCYTE MEAN CORPUSCULAR HEMOGLOBIN CONCENTRATION (G/DL) BY AUTOMATED 30.7 g/dL Low 32.0-35.0 [facility] Comment on above: Performed By: #### L [id number] ####[facility] ([facility]AKER)[address] [place] [address] Hematocrit (Bld) [Volume fraction] 47.3 % Normal 39.0-55.0 [facility] Comment on above: Performed By: #### L [id number] ####[facility] ([facility])[address] [place] [address] Hemoglobin (Bld) [Mass/Vol] 14.5 g/dL Normal 13.0-17.0 [facility] Comment on above: Performed By: #### L [id number] ####[facility] ([facility])[address] [place] [address] Immature granulocytes (Bld) [#/Vol] 0.05 10*3/uL Normal 0.00-0.20 [facility] Comment on above: Performed By: #### L [id number] ####[facility] ([facility])[address] [place] [address] Immature granulocytes/100 WBC (Bld) 0.7 % Normal 0.0-1.0 [facility] Comment on above: Performed By: #### L [id number] ####[facility] (BEAKER)[address] [place] [address] Lymphocytes (Bld) [#/Vol] 1.52 10*3/uL Normal 1.20-4.00 [facility] Comment on above: Performed By: #### L [id number] ####[facility] (BEAKER)[address] [place] [address] Lymphocytes/100 WBC (Bld) 22.5 % Normal 20.0-45.0 [facility] Comment on above: Performed By: #### L [id number] ####[facility] (BEAKER)[address] [place] [address] MCH (RBC) [Entitic mass] 29.1 pg Normal 27.0-33.0 [facility] Comment on above: Performed By: #### L [id number] ####[facility] (BEAKER)[address] [place] [address] MCV (RBC) [Entitic vol] 95.0 fL Normal 82.0-98.[address] [facility] Comment on above: Performed By: #### L [id number] ####[facility] (BEAKER)[address] [place] [address] Monocytes (Bld) [#/Vol] 0.74 10*3/uL Normal 0.10-1.00 [facility] Comment on above: Performed By: #### L [id number] ####[facility] ([facility])[address] [place] [address] Monocytes/100 WBC (Bld) 10.9 % Normal 5.0-12.[address] [facility] Comment on above: Performed By: #### L [id number] ####[facility] (BEAKER)[address] [place] [address] Neutrophils (Bld) [#/Vol] 3.98 10*3/uL Normal 1.60-7.60 [facility] Comment on above: Performed By: #### L [id number] ####[facility] ([facility])[address] [place], [place] [address] Neutrophils/100 WBC (Bld) 59.0 % Normal 40.0-72.0 [facility] Comment on above: Performed By: #### L [id number] ####[facility] (BEAKER)[address] [place] [address] NRBC (PER 100 WBCS) BY AUTOMATED COUNT 0.0 % Normal 0 [facility] Comment on above: Performed By: #### L [id number] ####[facility] (BEAKER)[address] [place] [address] PLATELETS (10*3/UL) IN BLOOD AUTOMATED COUNT 251 10*3/uL Normal 150-400 [facility] Comment on above: Performed By: #### L [id number] ####[facility] ([facility])[address] [place] [address] RBC (Bld) [#/Vol] 4.98 10*6/uL Normal 4.20-5.70 [facility] Comment on above: Performed By: #### L [id number] ####[facility] ([facility])[address] [place] [address] WBC (Bld) [#/Vol] 6.76 10*3/uL Normal 4.00-10.60 [facility] Comment on above: Performed By: #### L [id number] ####[facility] ([facility])[address] [place] [address] MAGNESIUMon 09-06-2024 Magnesium [Mass/Vol] 1.6 mg/dL Low 1.9-2.7 [facility] Comment on above: Performed By: #### L [id number] ####[facility] ([facility])[address] [place] [address] NURSNOTEon 09-06-2024 NURSNOTE Signed off to Ian engel RN--with bedside rounding Pt. Cont. To sit up in a chair at bedside Call light within reach Normal [facility] Pt refused to go yeni k to bed at this time Pt. Cont. To sit up in a chair at bedside No c/o of SOB or nausea at this time Resp. Easy @ 18/min Normal [facility] PHOSPHORUSon 09-06-2024 Magnesium [Mass/Vol] 3.4 mg/dL Normal 2.5-5.0 [facility] Comment on above: Performed By: #### L [id number] ####[facility] ([facility])[address] [place] [address] POCT GLUCOSE METER UNSOLICIT ED RESULTSon 09-06-2024 Glucose [Mass/Vol] 255 mg/dL High 70-105 [facility] Comment on above: Order Comment: Waive d Testing in the ED is performed under the ED CLIA certificate #[id number]. Result Comment: [email or web address] Performed By: #### L [id number] ####[facility] (BEAKER)[address] [place] [address] Glucose [Mass/Vol] 208 mg/dL High 70-105 [facility] Comment on above: Order Comment: Waive d Testing in the ED is performed under the ED CLIA certificate #[id number]. Result Comment: [email or web address] Performed By: #### L [id number] ####[facility] ([facility])[address] [place] [address] Glucose [Mass/Vol] 173 mg/dL High 70-105 [facility] Comment on above: Order Comment: Waive d Testing in the ED is performed under the ED CLIA certificate #[id number]. Result Comment: [email or web address] Performed By: #### L [id number] ####[facility] ([facility])[address] [place] [address] Glucose [Mass/Vol] 210 mg/dL High 70-105 [facility] Comment on above: Order Comment: Waive d Testing in the ED is performed under the ED CLIA certificate #[id number]. Result Comment: [email or web address] Performed By: #### L [id number] ####[facility] ([facility])[address] [place] [address] BASIC METABOLIC PANELon 02- Anion gap [Moles/Vol] 8 mmol/L Normal 7-20 [facility] Comment on above: Performed By: #### L [id number] ####[facility] ([facility])[address] [place] [address] Calcium [Mass/Vol] 9.9 mg/dL Normal 8.6-10.3 [facility] Comment on above: Performed By: #### L [id number] ####[facility] (BEAKER)[address] [place] [address] Chloride [Moles/Vol] 98 mmol/L Normal 98-107 [facility] Comment on above: Performed By: #### L [id number] ####[facility] ([facility])[address] [place] [address] CO2 [Moles/Vol] 33 mmol/L High 21-31 [facility] Comment on above: Performed By: #### L [id number] ####[facility] ([facility])[address] [place] [address] Creatinine [Mass/Vol] 0.90 mg/dL Normal 0.70-1.30 [facility] Comment on above: Performed By: #### L [id number] ####[facility] ([facility])[address] [place] [address] GLOMERULAR FILTRATION RATE ML/MIN/1.73 SQ M.PREDICTED 94.8 mL/min/1.73m*2 Normal >60.0 [facility] Comment on above: Result Comment: The [facility]???s estimated glomerular filtration rate (eGFR) will no [...] L [id number] ####[facility] ([facility])[address] [place] [address] Glucose [Mass/Vol] 142 mg/dL High 70-100 [facility] Comment on above: Performed By: #### L [id number] ####[facility] ([facility])[address] [place] [address] Potassium [Moles/Vol] 4.1 mmol/L Normal 3.5-5.1 [facility] Comment on above: Performed By: #### L [id number] ####[facility] ([facility])[address] [place] [address] Sodium [Moles/Vol] 135 mmol/L Low 136-145 [facility] Comment on above: Performed By: #### L [id number] ####[facility] ([facility])[address] [place] [address] Urea nitrogen [Mass/Vol] 19 mg/dL Normal 7-25 [facility] Comment on above: Performed By: #### L [id number] ####[facility] ([facility])[address] [place] [address] UREA NITROGEN/CREATININE (MASS RATIO) IN SER/PLAS 21.1 Normal [facility] Comment on above: Performed By: #### L [id number] ####[facility] ([facility])[address] [place] [address] CBC WITH AUTO DIFFERENTIALon 09-05-2024 Basophils (Bld) [#/Vol] 0.07 10*3/uL Normal 0.00-0.20 [facility] Comment on above: Performed By: #### L [id number] ####[facility] ([facility])[address] [place] [address] Basophils/100 WBC (Bld) 0.9 % Normal 0.0-1.0 [facility] Comment on above: Performed By: #### L [id number] ####[facility] ([facility])[address] [place] [address] Eosinophils (Bld) [#/Vol] 0.38 10*3/uL Normal 0.00-0.50 [facility] Comment on above: Performed By: #### L [id number] ####[facility] ([facility])[address] [place] [address] Eosinophils/100 WBC (Bld) 5.0 % Normal 0.0-6.0 [facility] Comment on above: Performed By: #### L [id number] ####[facility] ([facility])[address] [place] [address] Erythrocyte distribution width (RBC) [Ratio] 15.2 % High 11.5-15.0 [facility] Comment on above: Performed By: #### L [id number] ####[facility] (BEAKER)[address] [place] [address] ERYTHROCYTE MEAN CORPUSCULAR HEMOGLOBIN CONCENTRATION (G/DL) BY AUTOMATED 31.4 g/dL Low 32.0-35.0 [facility] Comment on above: Performed By: #### L [id number] ####[facility] (BEAKER)[address] [place] [address] Hematocrit (Bld) [Volume fraction] 47.1 % Normal 39.0-55.0 [facility] Comment on above: Performed By: #### L [id number] ####[facility] (BEAKER)[address] [place] [address] Hemoglobin (Bld) [Mass/Vol] 14.8 g/dL Normal 13.0-17.0 [facility] Comment on above: Performed By: #### L [id number] ####[facility] (BEAKER)[address] [place] [address] Immature granulocytes (Bld) [#/Vol] 0.06 10*3/uL Normal 0.00-0.20 [facility] Comment on above: Performed By: #### L [id number] ####[facility] (BEAKER)[address] [place] [address] Immature granulocytes/100 WBC (Bld) 0.8 % Normal 0.0-1.0 [facility] Comment on above: Performed By: #### L [id number] ####[facility] (BEAKER)[address] [place] [address] Lymphocytes (Bld) [#/Vol] 1.99 10*3/uL Normal 1.20-4.00 [facility] Comment on above: Performed By: #### L [id number] ####[facility] (BEAKER)[address] [place] [address] Lymphocytes/100 WBC (Bld) 26.0 % Normal 20.0-45.0 [facility] Comment on above: Performed By: #### L [id number] ####[facility] (BEAKER)[address] [place] [address] MCH (RBC) [Entitic mass] 28.8 pg Normal 27.0-33.0 [facility] Comment on above: Performed By: #### L [id number] ####[facility] ([facility])[address] [place] [address] MCV (RBC) [Entitic vol] 91.6 fL Normal 82.0-98.[address] [facility] Comment on above: Performed By: #### L [id number] ####[facility] ([facility])[address] [place] [address] Monocytes (Bld) [#/Vol] 0.77 10*3/uL Normal 0.10-1.00 [facility] Comment on above: Performed By: #### L [id number] ####[facility] ([facility])[address] [place], [place] [address] Monocytes/100 WBC (Bld) 10.1 % Normal 5.0-12.[address] [facility] Comment on above: Performed By: #### L [id number] ####[facility] ([facility])[address] [place], [place] [address] Neutrophils (Bld) [#/Vol] 4.39 10*3/uL Normal 1.60-7.60 [facility] Comment on above: Performed By: #### L [id number] ####[facility] ([facility])[address] [place] [address] Neutrophils/100 WBC (Bld) 57.2 % Normal 40.0-72.0 [facility] Comment on above: Performed By: #### L [id number] ####[facility] ([facility])[address] [place], [place] [address] NRBC (PER 100 WBCS) BY AUTOMATED COUNT 0.0 % Normal 0 [facility] Comment on above: Performed By: #### L [id number] ####[facility] ([facility])[address] [place], [place] [address] PLATELETS (10*3/UL) IN BLOOD AUTOMATED COUNT 274 10*3/uL Normal 150-400 [facility] Comment on above: Performed By: #### L [id number] ####[facility] ([facility])[address] [place] [address] RBC (Bld) [#/Vol] 5.14 10*6/uL Normal 4.20-5.70 [facility] Comment on above: Performed By: #### L [id number] ####[facility] ([facility])[address] [place] [address] WBC (Bld) [#/Vol] 7.66 10*3/uL Normal 4.00-10.60 [facility] Comment on above: Performed By: #### L [id number] ####[facility] ([facility])[address] [place] [address] MAGNESIUMon 09-05-2024 Magnesium [Mass/Vol] 1.6 mg/dL Low 1.9-2.7 [facility] Comment on above: Performed By: #### L [id number] ####[facility] ([facility])[address] [place] [address] PHOSPHORUSon 09-05-2024 Magnesium [Mass/Vol] 2.8 mg/dL Normal 2.5-5.0 [facility] Comment on above: Performed By: #### L [id number] ####[facility] ([facility])[address] [place] [address] POCT GLUCOSE METER UNSOLICIT ED RESULTSon 09-05-2024 Glucose [Mass/Vol] 221 mg/dL High 70-105 [facility] Comment on above: Order Comment: Waive d Testing in the ED is performed under the ED CLIA certificate #[id number]. Result Comment: [email or web address] Performed By: #### L [id number] ####[facility] ([facility])[address] [place] [address] Glucose [Mass/Vol] 204 mg/dL High 70-105 [facility] Comment on above: Order Comment: Waive d Testing in the ED is performed under the ED CLIA certificate #[id number]. Result Comment: [email or web address] Performed By: #### L [id number] ####[facility] (BEAKER)[address] [place] [address] Glucose [Mass/Vol] 222 mg/dL High 70-105 [facility] Comment on above: Order Comment: Waive d Testing in the ED is performed under the ED CLIA certificate #[id number]. Result Comment: [email or web address] Performed By: #### L [id number] ####[facility] ([facility]ER)[address] [place] [address] Glucose [Mass/Vol] 141 mg/dL High 70-105 [facility] Comment on above: Order Comment: Waive d Testing in the ED is performed under the ED CLIA certificate #[id number]. Result Comment: [email or web address] Performed By: #### L [id number] ####[facility] (BEAKER)[address] [place] [address] 30on 09-04-2024 30 Normal [facility] BASIC METABOLIC PANELon 08-21 Anion gap [Moles/Vol] 7 mmol/L Normal 7-20 [facility] Comment on above: Performed By: #### L [id number] ####[facility] (BEAKER)[address] [place] [address] Calcium [Mass/Vol] 9.6 mg/dL Normal 8.6-10.3 [facility] Comment on above: Performed By: #### L [id number] ####[facility] ([facility]ER)[address] [place] [address] Chloride [Moles/Vol] 98 mmol/L Normal 98-107 [facility] Comment on above: Performed By: #### L [id number] ####[facility] (BEAKER)[address] [place] [address] CO2 [Moles/Vol] 35 mmol/L High 21-31 [facility] Comment on above: Performed By: #### L [id number] ####[facility] ([facility])[address] [place] [address] Creatinine [Mass/Vol] 0.88 mg/dL Normal 0.70-1.30 [facility] Comment on above: Performed By: #### L [id number] ####[facility] ([facility])[address] [place] [address] GLOMERULAR FILTRATION RATE ML/MIN/1.73 SQ M.PREDICTED 95.4 mL/min/1.73m*2 Normal >60.0 [facility] Comment on above: Result Comment: The [facility]???s estimated glomerular filtration rate (eGFR) will no [...] L [id number] ####[facility] ([facility])[address] [place] [address] Glucose [Mass/Vol] 155 mg/dL High 70-100 [facility] Comment on above: Performed By: #### L [id number] ####[facility] ([facility])[address] [place] [address] Potassium [Moles/Vol] 4.3 mmol/L Normal 3.5-5.1 [facility] Comment on above: Performed By: #### L [id number] ####[facility] ([facility])[address] [place] [address] Sodium [Moles/Vol] 136 mmol/L Normal 136-145 [facility] Comment on above: Performed By: #### L [id number] ####[facility] ([facility])[address] [place] [address] Urea nitrogen [Mass/Vol] 22 mg/dL Normal 7-25 [facility] Comment on above: Performed By: #### L [id number] ####[facility] (BEAKER)[address] [place] [address] UREA NITROGEN/CREATININE (MASS RATIO) IN SER/PLAS 25.0 Normal [facility] Comment on above: Performed By: #### L [id number] ####[facility] ([facility])[address] [place] [address] CBC WITH AUTO DIFFERENTIALon 09-04-2024 Basophils (Bld) [#/Vol] 0.06 10*3/uL Normal 0.00-0.20 [facility] Comment on above: Performed By: #### L [id number] ####[facility] ([facility])[address] [place] [address] Basophils/100 WBC (Bld) 1.0 % Normal 0.0-1.0 [facility] Comment on above: Performed By: #### L [id number] ####[facility] ([facility])[address] [place] [address] Eosinophils (Bld) [#/Vol] 0.38 10*3/uL Normal 0.00-0.50 [facility] Comment on above: Performed By: #### L [id number] ####[facility] (BEAKER)[address] [place] [address] Eosinophils/100 WBC (Bld) 6.1 % High 0.0-6.0 [facility] Comment on above: Performed By: #### L [id number] ####[facility] (BEAKER)[address] [place] [address] Erythrocyte distribution width (RBC) [Ratio] 15.2 % High 11.5-15.0 [facility] Comment on above: Performed By: #### L [id number] ####[facility] (BEAKER)[address] [place] [address] ERYTHROCYTE MEAN CORPUSCULAR HEMOGLOBIN CONCENTRATION (G/DL) BY AUTOMATED 30.6 g/dL Low 32.0-35.0 [facility] Comment on above: Performed By: #### L [id number] ####[facility] ([facility])[address] [place] [address] Hematocrit (Bld) [Volume fraction] 48.4 % Normal 39.0-55.0 [facility] Comment on above: Performed By: #### L [id number] ####[facility] ([facility])[address] [place] [address] Hemoglobin (Bld) [Mass/Vol] 14.8 g/dL Normal 13.0-17.0 [facility] Comment on above: Performed By: #### L [id number] ####[facility] ([facility])[address] [place] [address] Immature granulocytes (Bld) [#/Vol] 0.04 10*3/uL Normal 0.00-0.20 [facility] Comment on above: Performed By: #### L [id number] ####[facility] ([facility])[address] [place] [address] Immature granulocytes/100 WBC (Bld) 0.6 % Normal 0.0-1.0 [facility] Comment on above: Performed By: #### L [id number] ####[facility] (BEAKER)[address] [place] [address] Lymphocytes (Bld) [#/Vol] 1.68 10*3/uL Normal 1.20-4.00 [facility] Comment on above: Performed By: #### L [id number] ####[facility] ([facility])[address] [place] [address] Lymphocytes/100 WBC (Bld) 27.1 % Normal 20.0-45.0 [facility] Comment on above: Performed By: #### L [id number] ####[facility] (BEAKER)[address] [place] [address] MCH (RBC) [Entitic mass] 28.6 pg Normal 27.0-33.0 [facility] Comment on above: Performed By: #### L [id number] ####[facility] (BEAKER)[address] [place] [address] MCV (RBC) [Entitic vol] 93.6 fL Normal 82.0-98.[address] [facility] Comment on above: Performed By: #### L [id number] ####[facility] (BEAKER)[address] [place] [address] Monocytes (Bld) [#/Vol] 0.74 10*3/uL Normal 0.10-1.00 [facility] Comment on above: Performed By: #### L [id number] ####[facility] ([facility])[address] [place] [address] Monocytes/100 WBC (Bld) 11.9 % Normal 5.0-12.[address] [facility] Comment on above: Performed By: #### L [id number] ####[facility] ([facility])[address] [place] [address] Neutrophils (Bld) [#/Vol] 3.31 10*3/uL Normal 1.60-7.60 [facility] Comment on above: Performed By: #### L [id number] ####[facility] ([facility])[address] [place] [address] Neutrophils/100 WBC (Bld) 53.3 % Normal 40.0-72.0 [facility] Comment on above: Performed By: #### L [id number] ####[facility] (BEAKER)[address] [place] [address] NRBC (PER 100 WBCS) BY AUTOMATED COUNT 0.0 % Normal 0 [facility] Comment on above: Performed By: #### L [id number] ####[facility] ([facility])[address] [place] [address] PLATELETS (10*3/UL) IN BLOOD AUTOMATED COUNT 254 10*3/uL Normal 150-400 [facility] Comment on above: Performed By: #### L [id number] ####[facility] ([facility])[address] [place] [address] RBC (Bld) [#/Vol] 5.17 10*6/uL Normal 4.20-5.70 [facility] Comment on above: Performed By: #### L [id number] ####[facility] ([facility])[address] [place] [address] WBC (Bld) [#/Vol] 6.21 10*3/uL Normal 4.00-10.60 [facility] Comment on above: Performed By: #### L [id number] ####[facility] ([facility])[address] [place] [address] POCT GLUCOSE METER UNSOLICIT ED RESULTSon 09-04-2024 Glucose [Mass/Vol] 219 mg/dL High 70-105 [facility] Comment on above: Order Comment: Waive d Testing in the ED is performed under the ED CLIA certificate #[id number]. Result Comment: [email or web address] Performed By: #### L [id number] ####[facility] ([facility])[address] [place] [address] Glucose [Mass/Vol] 156 mg/dL High 70-105 [facility] Comment on above: Order Comment: Waive d Testing in the ED is performed under the ED CLIA certificate #[id number]. Result Comment: [email or web address] Performed By: #### L [id number] ####[facility] ([facility])[address] [place] [address] Glucose [Mass/Vol] 190 mg/dL High 70-105 [facility] [facility] Comment on above: Order Comment: Waive d Testing in the ED is performed under the ED CLIA certificate #[id number]. Result Comment: [email or web address] Performed By: #### L [id number] ####[facility] ([facility])[address] [place] [address] Glucose [Mass/Vol] 149 mg/dL High 70-105 [facility] Comment on above: Order Comment: Waive d Testing in the ED is performed under the ED CLIA certificate #[id number]. Result Comment: [email or web address] Performed By: #### L [id number] ####[facility] ([facility])[address] [place] [address] 30on 09-03-2024 30 Normal [facility] BASIC METABOLIC PANELon 08-21 Anion gap [Moles/Vol] 11 mmol/L Normal 7-20 [facility] Comment on above: Performed By: #### L [id number] ####[facility] ([facility])[address] [place] [address] Calcium [Mass/Vol] 9.7 mg/dL Normal 8.6-10.3 [facility] Comment on above: Performed By: #### L [id number] ####[facility] ([facility])[address] [place] [address] Chloride [Moles/Vol] 96 mmol/L Low 98-107 [facility] Comment on above: Performed By: #### L [id number] ####[facility] ([facility]ER)[address] [place] [address] CO2 [Moles/Vol] 33 mmol/L High 21-31 [facility] Comment on above: Performed By: #### L [id number] ####[facility] ([facility]ER)[address] [place] [address] Creatinine [Mass/Vol] 0.87 mg/dL Normal 0.70-1.30 [facility] Comment on above: Performed By: #### L [id number] ####[facility] ([facility]ER)[address] [place] [address] GLOMERULAR FILTRATION RATE ML/MIN/1.73 SQ M.PREDICTED 95.8 mL/min/1.73m*2 Normal >60.0 [facility] Comment on above: Result Comment: The [facility]???s estimated glomerular filtration rate (eGFR) will no [...] L [id number] ####[facility] ([facility])[address] [place] [address] Glucose [Mass/Vol] 161 mg/dL High 70-100 [facility] Comment on above: Performed By: #### L [id number] ####[facility] ([facility])[address] [place] [address] Potassium [Moles/Vol] 4.2 mmol/L Normal 3.5-5.1 [facility] Comment on above: Performed By: #### L [id number] ####[facility] ([facility])[address] [place] [address] Sodium [Moles/Vol] 136 mmol/L Normal 136-145 [facility] Comment on above: Performed By: #### L [id number] ####[facility] ([facility])[address] [facility] [place] [address] Urea nitrogen [Mass/Vol] 23 mg/dL Normal 7-25 [facility] Comment on above: Performed By: #### L [id number] ####[facility] ([facility])[address] [place] [address] UREA NITROGEN/CREATININE (MASS RATIO) IN SER/PLAS 26.4 Normal [facility] Comment on above: Performed By: #### L [id number] ####[facility] ([facility])[address] [facility] [place] [address] CBC WITH AUTO DIFFERENTIALon 09-03-2024 Basophils (Bld) [#/Vol] 0.07 10*3/uL Normal 0.00-0.20 [facility] Comment on above: Performed By: #### L [id number] ####[facility] ([facility])[address] [place] [address] Basophils/100 WBC (Bld) 0.8 % Normal 0.0-1.0 [facility] Comment on above: Performed By: #### L [id number] ####[facility] ([facility])[address] [place] [address] Eosinophils (Bld) [#/Vol] 0.40 10*3/uL Normal 0.00-0.50 [facility] Comment on above: Performed By: #### L [id number] ####[facility] ([facility]ER)[address] [place] [address] Eosinophils/100 WBC (Bld) 4.8 % Normal 0.0-6.0 [facility] Comment on above: Performed By: #### L [id number] ####[facility] ([facility]ER)[address] [place] [address] Erythrocyte distribution width (RBC) [Ratio] 15.3 % High 11.5-15.0 [facility] Comment on above: Performed By: #### L [id number] ####[facility] ([facility]ER)[address] [place] [address] ERYTHROCYTE MEAN CORPUSCULAR HEMOGLOBIN CONCENTRATION (G/DL) BY AUTOMATED 31.8 g/dL Low 32.0-35.0 [facility] Comment on above: Performed By: #### L [id number] ####[facility] ([facility]ER)[address] [place] [address] Hematocrit (Bld) [Volume fraction] 46.8 % Normal 39.0-55.0 [facility] Comment on above: Performed By: #### L [id number] ####[facility] ([facility]ER)[address] [place] [address] Hemoglobin (Bld) [Mass/Vol] 14.9 g/dL Normal 13.0-17.0 [facility] Comment on above: Performed By: #### L [id number] ####[facility] ([facility]ER)[address] [place] [address] Immature granulocytes (Bld) [#/Vol] 0.05 10*3/uL Normal 0.00-0.20 [facility] Comment on above: Performed By: #### L [id number] ####[facility] ([facility]ER)[address] [place] [address] Immature granulocytes/100 WBC (Bld) 0.6 % Normal 0.0-1.0 [facility] Comment on above: Performed By: #### L [id number] ####[facility] ([facility]ER)[address] [place] [address] Lymphocytes (Bld) [#/Vol] 1.73 10*3/uL Normal 1.20-4.00 [facility] Comment on above: Performed By: #### L [id number] ####[facility] ([facility]ER)[address] [place] [address] Lymphocytes/100 WBC (Bld) 20.9 % Normal 20.0-45.0 [facility] Comment on above: Performed By: #### L [id number] ####[facility] ([facility]ER)[address] [place] [address] MCH (RBC) [Entitic mass] 29.3 pg Normal 27.0-33.0 [facility] Comment on above: Performed By: #### L [id number] ####[facility] ([facility]ER)[address] [place] [address] MCV (RBC) [Entitic vol] 91.9 fL Normal 82.0-98.[address] [facility] Comment on above: Performed By: #### L [id number] ####[facility] ([facility]ER)[address] [place] [address] Monocytes (Bld) [#/Vol] 0.96 10*3/uL Normal 0.10-1.00 [facility] Comment on above: Performed By: #### L [id number] ####[facility] ([facility]ER)[address] [place] [address] Monocytes/100 WBC (Bld) 11.6 % Normal 5.0-12.[address] [facility] Comment on above: Performed By: #### L [id number] ####[facility] ([facility])[address] [place] [address] Neutrophils (Bld) [#/Vol] 5.06 10*3/uL Normal 1.60-7.60 [facility] Comment on above: Performed By: #### L [id number] ####[facility] ([facility])[address] [place] [address] Neutrophils/100 WBC (Bld) 61.3 % Normal 40.0-72.0 [facility] Comment on above: Performed By: #### L [id number] ####[facility] ([facility])[address] [place] [address] NRBC (PER 100 WBCS) BY AUTOMATED COUNT 0.0 % Normal 0 [facility] Comment on above: Performed By: #### L [id number] ####[facility] ([facility])[address] [place] [address] PLATELETS (10*3/UL) IN BLOOD AUTOMATED COUNT 264 10*3/uL Normal 150-400 [facility] Comment on above: Performed By: #### L [id number] ####[facility] ([facility])[address] [address] RBC (Bld) [#/Vol] 5.09 10*6/uL Normal 4.20-5.70 [facility] Comment on above: Performed By: #### L [id number] ####[facility] ([facility])[address] [place] [address] WBC (Bld) [#/Vol] 8.27 10*3/uL Normal 4.00-10.60 [facility] Comment on above: Performed By: #### L [id number] ####[facility] ([facility])[address] [place] [address] MAGNESIUMon 09-03-2024 Magnesium [Mass/Vol] 1.6 mg/dL Low 1.9-2.7 [facility] Comment on above: Performed By: #### L [id number] ####[facility] ([facility])[address] [place] [address] PHOSPHORUSon 09-03-2024 Magnesium [Mass/Vol] 3.3 mg/dL Normal 2.5-5.0 [facility] Comment on above: Performed By: #### L [id number] ####[facility] ([facility])[address] [place] [address] POCT GLUCOSE METER UNSOLICIT ED RESULTSon 09-03-2024 Glucose [Mass/Vol] 168 mg/dL High 70-105 [facility] Comment on above: Order Comment: Waive d Testing in the ED is performed under the ED CLIA certificate #[id number]. Result Comment: [email or web address] Performed By: #### L [id number] ####[facility] ([facility])[address] [place] [address] Glucose [Mass/Vol] 184 mg/dL High 70-105 [facility] Comment on above: Order Comment: Waive d Testing in the ED is performed under the ED CLIA certificate #[id number]. Result Comment: [email or web address] [email or web address] Performed By: #### L [id number] ####[facility] ([facility])[address] [place] [address] Glucose [Mass/Vol] 205 mg/dL High 70-105 [facility] Comment on above: Order Comment: Waive d Testing in the ED is performed under the ED CLIA certificate #[id number]. Result Comment: [email or web address] [email or web address] Performed By: #### L [id number] ####[facility] ([facility])[address] [place] [address] Glucose [Mass/Vol] 145 mg/dL High 70-105 [facility] Comment on above: Order Comment: Waive d Testing in the ED is performed under the ED CLIA certificate #[id number]. Result Comment: [email or web address] [email or web address] Performed By: #### L [id number] ####[facility] ([facility])[address] [place] [address] 30on 09-02-2024 30 Normal [facility] BASIC METABOLIC PANELon 08-21 Anion gap [Moles/Vol] 8 mmol/L Normal 7-20 [facility] Comment on above: Performed By: #### L [id number] ####[facility] (BEAKER)[address] [place] [address] Calcium [Mass/Vol] 9.5 mg/dL Normal 8.6-10.3 [facility] Comment on above: Performed By: #### L [id number] ####[facility] ([facility]ER)[address] [place] [address] Chloride [Moles/Vol] 99 mmol/L Normal 98-107 [facility] Comment on above: Performed By: #### L [id number] ####[facility] ([facility]ER)[address] [place] [address] CO2 [Moles/Vol] 37 mmol/L High 21-31 [facility] Comment on above: Performed By: #### L [id number] ####[facility] ([facility]ER)[address] [place] [address] Creatinine [Mass/Vol] 0.77 mg/dL Normal 0.70-1.30 [facility] Comment on above: Performed By: #### L [id number] ####[facility] ([facility])[address] [place] [address] GLOMERULAR FILTRATION RATE ML/MIN/1.73 SQ M.PREDICTED 99.4 mL/min/1.73m*2 Normal >60.0 [facility] Comment on above: Result Comment: The [facility]???s estimated glomerular filtration rate (eGFR) will no [...] L [id number] ####[facility] ([facility])[address] [place] [address] Glucose [Mass/Vol] 160 mg/dL High 70-100 [facility] Comment on above: Performed By: #### L [id number] ####[facility] ([facility])[address] [place] [address] Potassium [Moles/Vol] 4.1 mmol/L Normal 3.5-5.1 [facility] Comment on above: Performed By: #### L [id number] ####[facility] ([facility])[address] [place] [address] Sodium [Moles/Vol] 140 mmol/L Normal 136-145 [facility] Comment on above: Performed By: #### L [id number] ####[facility] ([facility])[address] [place] [address] Urea nitrogen [Mass/Vol] 16 mg/dL Normal 7-25 [facility] Comment on above: Performed By: #### L [id number] ####[facility] ([facility])[address] [place] [address] UREA NITROGEN/CREATININE (MASS RATIO) IN SER/PLAS 20.8 Normal [facility] Comment on above: Performed By: #### L [id number] ####[facility] ([facility])[address] [place] [address] CBC WITH AUTO DIFFERENTIALon 09-02-2024 Basophils (Bld) [#/Vol] 0.07 10*3/uL Normal 0.00-0.20 [facility] Comment on above: Performed By: #### L [id number] ####[facility] ([facility])[address] [place] [address] Basophils/100 WBC (Bld) 1.0 % Normal 0.0-1.[address] [facility] Comment on above: Performed By: #### L [id number] ####[facility] ([facility]ER)[address] [place] [address] Eosinophils (Bld) [#/Vol] 0.34 10*3/uL Normal 0.00-0.50 [facility] Comment on above: Performed By: #### L [id number] ####[facility] ([facility]ER)[address] [place] [address] Eosinophils/100 WBC (Bld) 5.0 % Normal 0.0-6.0 [facility] Comment on above: Performed By: #### L [id number] ####[facility] ([facility])[address] [place] [address] Erythrocyte distribution width (RBC) [Ratio] 15.1 % High 11.5-15.0 [facility] Comment on above: Performed By: #### L [id number] ####[facility] ([facility])[address] [place] [address] ERYTHROCYTE MEAN CORPUSCULAR HEMOGLOBIN CONCENTRATION (G/DL) BY AUTOMATED 31.0 g/dL Low 32.0-35.0 [facility] Comment on above: Performed By: #### L [id number] ####[facility] ([facility])[address] [place] [address] Hematocrit (Bld) [Volume fraction] 46.2 % Normal 39.0-55.0 [facility] Comment on above: Performed By: #### L [id number] ####[facility] ([facility])[address] [place] [address] Hemoglobin (Bld) [Mass/Vol] 14.3 g/dL Normal 13.0-17.0 [facility] Comment on above: Performed By: #### L [id number] ####[facility] ([facility]ER)[address] [place] [address] Immature granulocytes (Bld) [#/Vol] 0.04 10*3/uL Normal 0.00-0.20 [facility] Comment on above: Performed By: #### L [id number] ####[facility] (BEAKER)[address] [place] [address] Immature granulocytes/100 WBC (Bld) 0.6 % Normal 0.0-1.0 [facility] Comment on above: Performed By: #### L [id number] ####[facility] ([facility]ER)[address] [place] [address] Lymphocytes (Bld) [#/Vol] 1.60 10*3/uL Normal 1.20-4.00 [facility] Comment on above: Performed By: #### L [id number] ####[facility] ([facility])[address] [place] [address] Lymphocytes/100 WBC (Bld) 23.7 % Normal 20.0-45.0 [facility] Comment on above: Performed By: #### L [id number] ####[facility] ([facility])[address] [place] [address] MCH (RBC) [Entitic mass] 28.8 pg Normal 27.0-33.0 [facility] Comment on above: Performed By: #### L [id number] ####[facility] (BEAKER)[address] [place] [address] MCV (RBC) [Entitic vol] 93.1 fL Normal 82.0-98.[address] [facility] Comment on above: Performed By: #### L [id number] ####[facility] (BEAKER)[address] [place] [address] Monocytes (Bld) [#/Vol] 0.86 10*3/uL Normal 0.10-1.00 [facility] Comment on above: Performed By: #### L [id number] ####[facility] (BEAKER)[address] [place] [address] Monocytes/100 WBC (Bld) 12.8 % High 5.0-12.[address] [facility] Comment on above: Performed By: #### L [id number] ####[facility] ([facility]ER)[address] [place] [address] Neutrophils (Bld) [#/Vol] 3.83 10*3/uL Normal 1.60-7.60 [facility] Comment on above: Performed By: #### L [id number] ####[facility] ([facility])[address] [address] Neutrophils/100 WBC (Bld) 56.9 % Normal 40.0-72.0 [facility] Comment on above: Performed By: #### L [id number] ####[facility] ([facility])[address] [address] NRBC (PER 100 WBCS) BY AUTOMATED COUNT 0.0 % Normal 0 [facility] Comment on above: Performed By: #### L [id number] ####[facility] ([facility])[address] [place] [address] PLATELETS (10*3/UL) IN BLOOD AUTOMATED COUNT 264 10*3/uL Normal 150-400 [facility] Comment on above: Performed By: #### L [id number] ####[facility] ([facility])[address] [place] [address] RBC (Bld) [#/Vol] 4.96 10*6/uL Normal 4.20-5.70 [facility] Comment on above: Performed By: #### L [id number] ####[facility] ([facility])[address] [address] WBC (Bld) [#/Vol] 6.74 10*3/uL Normal 4.00-10.60 [facility] Comment on above: Performed By: #### L [id number] ####[facility] ([facility])[address] [place] [address] NURSNOTEon 09-02-2024 NURSNOTE Normal [facility] NURSNOTE Normal [facility] PHOSPHORUSon 09-02-2024 Magnesium [Mass/Vol] 3.1 mg/dL Normal 2.5-5.0 [facility] Comment on above: Performed By: #### L [id number] ####[facility] ([facility])[address] [place] [address] POCT GLUCOSE METER UNSOLICIT ED RESULTSon 09-02-2024 Glucose [Mass/Vol] 289 mg/dL High 70-105 [facility] Comment on above: Order Comment: Waive d Testing in the ED is performed under the ED CLIA certificate #[id number]. Result Comment: [email or web address] Performed By: #### L [id number] ####[facility] ([facility])[address] [place] [address] Glucose [Mass/Vol] 260 mg/dL High 70-105 [facility] Comment on above: Order Comment: Waive d Testing in the ED is performed under the ED CLIA certificate #[id number]. Result Comment: [email or web address] cad Performed By: #### L [id number] ####[facility] ([facility])[address] [place] [address] Glucose [Mass/Vol] 204 mg/dL High 70-105 [facility] Comment on above: Order Comment: Waive d Testing in the ED is performed under the ED CLIA certificate #[id number]. Result Comment: sbel cad Performed By: #### L [id number] ####[facility] ([facility])[address] [place] [address] Glucose [Mass/Vol] 166 mg/dL High 70-105 [facility] Comment on above: Order Comment: Waive d Testing in the ED is performed under the ED CLIA certificate #[id number]. Result Comment: sbel cad Performed By: #### L [id number] ####[facility] ([facility])[address] [place] [address] 30on 09-01-2024 30 Normal [facility] BASIC METABOLIC PANELon 08-21 Anion gap [Moles/Vol] 7 mmol/L Normal 7-20 [facility] Comment on above: Performed By: #### L [id number] ####[facility] ([facility])[address] [place] [address] Calcium [Mass/Vol] 9.1 mg/dL Normal 8.6-10.3 [facility] Comment on above: Performed By: #### L [id number] ####[facility] (BEAKER)[address] [place] [address] Chloride [Moles/Vol] 98 mmol/L Normal 98-107 [facility] Comment on above: Performed By: #### L [id number] ####[facility] ([facility])[address] [place] [address] CO2 [Moles/Vol] 36 mmol/L High 21-31 [facility] Comment on above: Performed By: #### L [id number] ####[facility] ([facility])[address] [place] [address] Creatinine [Mass/Vol] 0.84 mg/dL Normal 0.70-1.30 [facility] Comment on above: Performed By: #### L [id number] ####[facility] ([facility])[address] [place] [address] GLOMERULAR FILTRATION RATE ML/MIN/1.73 SQ M.PREDICTED 96.8 mL/min/1.73m*2 Normal >60.0 [facility] Comment on above: Result Comment: The [facility]???s estimated glomerular filtration rate (eGFR) will no [...] L [id number] ####[facility] ([facility])[address] [place] [address] Glucose [Mass/Vol] 190 mg/dL High 70-100 [facility] Comment on above: Performed By: #### L [id number] ####[facility] (BEAKER)[address] [place] [address] Potassium [Moles/Vol] 4.1 mmol/L Normal 3.5-5.1 [facility] Comment on above: Performed By: #### L [id number] ####[facility] (BEAKER)[address] [place] [address] Sodium [Moles/Vol] 137 mmol/L Normal 136-145 [facility] Comment on above: Performed By: #### L [id number] ####[facility] ([facility])[address] [place] [address] Urea nitrogen [Mass/Vol] 18 mg/dL Normal 7-25 [facility] Comment on above: Performed By: #### L [id number] ####[facility] ([facility])[address] [place] [address] UREA NITROGEN/CREATININE (MASS RATIO) IN SER/PLAS 21.4 Normal [facility] Comment on above: Performed By: #### L [id number] ####[facility] ([facility])[address] [place] [address] CBC WITH AUTO DIFFERENTIALon 09-01-2024 Basophils (Bld) [#/Vol] 0.07 10*3/uL Normal 0.00-0.20 [facility] Comment on above: Performed By: #### L [id number] ####[facility] ([facility])[address] [place] [address] Basophils/100 WBC (Bld) 1.0 % Normal 0.0-1.[address] [facility] Comment on above: Performed By: #### L [id number] ####[facility] ([facility])[address] [place] [address] Eosinophils (Bld) [#/Vol] 0.37 10*3/uL Normal 0.00-0.50 [facility] Comment on above: Performed By: #### L [id number] ####[facility] ([facility])[address] [place] [address] Eosinophils/100 WBC (Bld) 5.1 % Normal 0.0-6.0 [facility] Comment on above: Performed By: #### L [id number] ####[facility] (BEAKER)[address] [place] [address] Erythrocyte distribution width (RBC) [Ratio] 15.1 % High 11.5-15.0 [facility] Comment on above: Performed By: #### L [id number] ####[facility] (BEAKER)[address] [place] [address] ERYTHROCYTE MEAN CORPUSCULAR HEMOGLOBIN CONCENTRATION (G/DL) BY AUTOMATED 31.3 g/dL Low 32.0-35.0 [facility] Comment on above: Performed By: #### L [id number] ####[facility] (BE[facility]ER)[address] [place] [address] Hematocrit (Bld) [Volume fraction] 46.3 % Normal 39.0-55.0 [facility] Comment on above: Performed By: #### L [id number] ####[facility] (BE[facility]ER)[address] [place] [address] Hemoglobin (Bld) [Mass/Vol] 14.5 g/dL Normal 13.0-17.0 [facility] Comment on above: Performed By: #### L [id number] ####[facility] (BEAKER)[address] [place] [address] Immature granulocytes (Bld) [#/Vol] 0.04 10*3/uL Normal 0.00-0.20 [facility] [place] Comment on above: Performed By: #### L [id number] ####[facility] (BEAKER)[address] [place] [address] Immature granulocytes/100 WBC (Bld) 0.6 % Normal 0.0-1.0 [facility] [place] Comment on above: Performed By: #### L [id number] ####[facility] (BEAKER)[address] [place] [address] Lymphocytes (Bld) [#/Vol] 1.46 10*3/uL Normal 1.20-4.00 [facility] [place] Comment on above: Performed By: #### L [id number] ####[facility] ([facility])[address] [place] [address] Lymphocytes/100 WBC (Bld) 20.2 % Normal 20.0-45.0 [facility] [place] Comment on above: Performed By: #### L [id number] ####[facility] ([facility])[address] [place] [address] MCH (RBC) [Entitic mass] 29.1 pg Normal 27.0-33.0 [facility] [place] Comment on above: Performed By: #### L [id number] ####[facility] ([facility])[address] [place] [address] MCV (RBC) [Entitic vol] 92.8 fL Normal 82.0-98.[address] [facility] Comment on above: Performed By: #### L [id number] ####[facility] ([facility])[address] [place] [address] Monocytes (Bld) [#/Vol] 0.85 10*3/uL Normal 0.10-1.00 [facility] [place] Comment on above: Performed By: #### L [id number] ####[facility] (BEAKER)[address] [place] [address] Monocytes/100 WBC (Bld) 11.8 % Normal 5.0-12.[address] [facility] Comment on above: Performed By: #### L [id number] ####[facility] (BEAKER)[address] [place] [address] Neutrophils (Bld) [#/Vol] 4.43 10*3/uL Normal 1.60-7.60 [facility] [place] Comment on above: Performed By: #### L [id number] ####[facility] (BEAKER)[address] [place] [address] Neutrophils/100 WBC (Bld) 61.3 % Normal 40.0-72.0 [facility] [place] Comment on above: Performed By: #### L [id number] ####[facility] ([facility])[address] [place] [address] NRBC (PER 100 WBCS) BY AUTOMATED COUNT 0.0 % Normal 0 [facility] [place] Comment on above: Performed By: #### L [id number] ####[facility] ([facility])[address] [place] [address] PLATELETS (10*3/UL) IN BLOOD AUTOMATED COUNT 268 10*3/uL Normal 150-400 [facility] [place] Comment on above: Performed By: #### L [id number] ####[facility] ([facility])[address] [place] [address] RBC (Bld) [#/Vol] 4.99 10*6/uL Normal 4.20-5.70 [facility] Comment on above: Performed By: #### L [id number] ####[facility] ([facility])[address] [place] [address] WBC (Bld) [#/Vol] 7.22 10*3/uL Normal 4.00-10.60 [facility] Comment on above: Performed By: #### L [id number] ####[facility] ([facility])[address] [place] [address] MAGNESIUMon 09-01-2024 Magnesium [Mass/Vol] 1.8 mg/dL Low 1.9-2.7 [facility] Comment on above: Performed By: #### L [id number] ####[facility] ([facility])[address] [place] [address] POCT GLUCOSE METER UNSOLICIT ED RESULTSon 09-01-2024 Glucose [Mass/Vol] 225 mg/dL High 70-105 [facility] Comment on above: Order Comment: Waive d Testing in the ED is performed under the ED CLIA certificate #[id number]. Result Comment: [email or web address] Performed By: #### L [id number] ####[facility] (BEAKER)[address] [place] [address] Glucose [Mass/Vol] 181 mg/dL High 70-105 [facility] Comment on above: Order Comment: Waive d Testing in the ED is performed under the ED CLIA certificate #[id number]. Result Comment: [email or web address] Performed By: #### L [id number] ####[facility] (AKER)[address] [place] [address] Glucose [Mass/Vol] 209 mg/dL High 70-105 [facility] Comment on above: Order Comment: Waive d Testing in the ED is performed under the ED CLIA certificate #[id number]. Result Comment: [email or web address] Performed By: #### L [id number] ####[facility] ([facility])[address] [place] [address] Glucose [Mass/Vol] 181 mg/dL High 70-105 [facility] Comment on above: Order Comment: Waive d Testing in the ED is performed under the ED CLIA certificate #[id number]. Result Comment: [email or web address] Performed By: #### L [id number] ####[facility] ([facility])[address] [place] [address] 30on 08-31-2024 30 [facility] 30 [facility] BASIC METABOLIC PANELon 08-21 Anion gap [Moles/Vol] 8 mmol/L Normal 7-20 [facility] Comment on above: Performed By: #### L [id number] ####[facility] (BEAKER)[address] [place] [address] Calcium [Mass/Vol] 9.6 mg/dL Normal 8.6-10.3 [facility] Comment on above: Performed By: #### L [id number] ####[facility] (BEAKER)[address] [place] [address] Chloride [Moles/Vol] 97 mmol/L Low 98-107 [facility] Comment on above: Performed By: #### L [id number] ####[facility] ([facility])[address] [place] [address] CO2 [Moles/Vol] 35 mmol/L High 21-31 [facility] Comment on above: Performed By: #### L [id number] ####[facility] ([facility])[address] [place] [address] Creatinine [Mass/Vol] 0.85 mg/dL Normal 0.70-1.30 [facility] Comment on above: Performed By: #### L [id number] ####[facility] ([facility])[address] [place] [address] GLOMERULAR FILTRATION RATE ML/MIN/1.73 SQ M.PREDICTED 96.4 mL/min/1.73m*2 Normal >60.0 [facility] [place] Comment on above: Result Comment: The [facility] [place]???s estimated glomerular filtration rate (eGFR) will no [...] L [id number] ####[facility] ([facility])[address] [place] [address] Glucose [Mass/Vol] 205 mg/dL High 70-100 [facility] Comment on above: Performed By: #### L [id number] ####[facility] ([facility])[address] [place] [address] Potassium [Moles/Vol] 3.9 mmol/L Normal 3.5-5.1 [facility] Comment on above: Performed By: #### L [id number] ####[facility] ([facility])[address] [place] [address] Sodium [Moles/Vol] 136 mmol/L Normal 136-145 [facility] Comment on above: Performed By: #### L [id number] ####[facility] ([facility])[address] [place] [address] Urea nitrogen [Mass/Vol] 21 mg/dL Normal 7-25 [facility] [place] Comment on above: Performed By: #### L [id number] ####[facility] ([facility])[address] [place] [address] UREA NITROGEN/CREATININE (MASS RATIO) IN SER/PLAS 24.7 Normal [facility] Comment on above: Performed By: #### L [id number] ####[facility] ([facility])[address] [place] [address] CBC WITH AUTO DIFFERENTIALon 08-31-2024 Basophils (Bld) [#/Vol] 0.06 10*3/uL Normal 0.00-0.20 [facility] [place] Comment on above: Performed By: #### L [id number] ####[facility] ([facility])[address] [place] [address] Basophils/100 WBC (Bld) 0.8 % Normal 0.0-1.0 [facility] Comment on above: Performed By: #### L [id number] ####[facility] ([facility])[address] [place] [address] Eosinophils (Bld) [#/Vol] 0.38 10*3/uL Normal 0.00-0.50 [facility] [place] Comment on above: Performed By: #### L [id number] ####[facility] ([facility])[address] [place] [address] Eosinophils/100 WBC (Bld) 5.3 % Normal 0.0-6.0 [facility] [place] Comment on above: Performed By: #### L [id number] ####[facility] ([facility])[address] [place] [address] Erythrocyte distribution width (RBC) [Ratio] 15.2 % High 11.5-15.0 [facility] [place] Comment on above: Performed By: #### L [id number] ####[facility] (BEAKER)[address] [place] [address] ERYTHROCYTE MEAN CORPUSCULAR HEMOGLOBIN CONCENTRATION (G/DL) BY AUTOMATED 30.4 g/dL Low 32.0-35.0 [facility] [place] Comment on above: Performed By: #### L [id number] ####[facility] (BEAKER)[address] [place] [address] Hematocrit (Bld) [Volume fraction] 48.3 % Normal 39.0-55.0 [facility] [place] Comment on above: Performed By: #### L [id number] ####[facility] (BEAKER)[address] [place] [address] Hemoglobin (Bld) [Mass/Vol] 14.7 g/dL Normal 13.0-17.0 [facility] [place] Comment on above: Performed By: #### L [id number] ####[facility] (BEAKER)[address] [place] [address] Immature granulocytes (Bld) [#/Vol] 0.06 10*3/uL Normal 0.00-0.20 [facility] [place] Comment on above: Performed By: #### L [id number] ####[facility] (BEAKER)[address] [place] [address] Immature granulocytes/100 WBC (Bld) 0.8 % Normal 0.0-1.0 [facility] [place] Comment on above: Performed By: #### L [id number] ####[facility] (BEAKER)[address] [place] [address] Lymphocytes (Bld) [#/Vol] 1.17 10*3/uL Low 1.20-4.00 [facility] [place] Comment on above: Performed By: #### L [id number] ####[facility] (BEAKER)[address] [place] [address] Lymphocytes/100 WBC (Bld) 16.3 % Low 20.0-45.0 [facility] [place] Comment on above: Performed By: #### L [id number] ####[facility] (BEAKER)[address] [place] [address] MCH (RBC) [Entitic mass] 29.0 pg Normal 27.0-33.0 [facility] [place] Comment on above: Performed By: #### L [id number] ####[facility] ([facility])[address] [place] [address] MCV (RBC) [Entitic vol] 95.3 fL Normal 82.0-98.[address] [facility] Comment on above: Performed By: #### L [id number] ####[facility] ([facility])[address] [place] [address] Monocytes (Bld) [#/Vol] 0.82 10*3/uL Normal 0.10-1.00 [facility] [place] Comment on above: Performed By: #### L [id number] ####[facility] ([facility])[address] [place], [place] [address] Monocytes/100 WBC (Bld) 11.4 % Normal 5.0-12.[address] [facility] Comment on above: Performed By: #### L [id number] ####[facility] ([facility])[address] [place] [address] Neutrophils (Bld) [#/Vol] 4.70 10*3/uL Normal 1.60-7.60 [facility] [place] Comment on above: Performed By: #### L [id number] ####[facility] ([facility])[address] [place] [address] Neutrophils/100 WBC (Bld) 65.4 % Normal 40.0-72.0 [facility] [place] Comment on above: Performed By: #### L [id number] ####[facility] ([facility])[address] [place], [place] [address] NRBC (PER 100 WBCS) BY AUTOMATED COUNT 0.0 % Normal 0 [facility] [place] Comment on above: Performed By: #### L [id number] ####[facility] (BEAKER)[address] [place], [place] [address] PLATELETS (10*3/UL) IN BLOOD AUTOMATED COUNT 278 10*3/uL Normal 150-400 [facility] [place] Comment on above: Performed By: #### L [id number] ####[facility] ([facility])[address] [place] [address] RBC (Bld) [#/Vol] 5.07 10*6/uL Normal 4.20-5.70 [facility] Comment on above: Performed By: #### L [id number] ####[facility] ([facility])[address] [place] [address] WBC (Bld) [#/Vol] 7.19 10*3/uL Normal 4.00-10.60 [facility] Comment on above: Performed By: #### L [id number] ####[facility] ([facility])[address] [place] [address] MAGNESIUMon 08-31-2024 Magnesium [Mass/Vol] 1.6 mg/dL Low 1.9-2.7 [facility] Comment on above: Performed By: #### L [id number] ####[facility] ([facility])[address] [place] [address] POCT GLUCOSE METER UNSOLICIT ED RESULTSon 08-31-2024 Glucose [Mass/Vol] 281 mg/dL High 70-105 [facility] Comment on above: Order Comment: Waive d Testing in the ED is performed under the ED CLIA certificate #[id number]. Result Comment: [email or web address] Performed By: #### L [id number] ####[facility] ([facility])[address] [place] [address] Glucose [Mass/Vol] 157 mg/dL High 70-105 [facility] Comment on above: Order Comment: Waive d Testing in the ED is performed under the ED CLIA certificate #[id number]. Result Comment: [email or web address] Performed By: #### L [id number] ####[facility] ([facility])[address] [place] [address] Glucose [Mass/Vol] 212 mg/dL High 70-105 [facility] Comment on above: Order Comment: Waive d Testing in the ED is performed under the ED CLIA certificate #[id number]. Result Comment: [email or web address] Performed By: #### L [id number] ####[facility] (BEAKER)[address] [place] [address] Glucose [Mass/Vol] 167 mg/dL High 70-105 [facility] Comment on above: Order Comment: Waive d Testing in the ED is performed under the ED CLIA certificate #[id number]. Result Comment: [email or web address] Performed By: #### L [id number] ####[facility] ([facility])[address] [place] [address] 30on 08-30-2024 30 Normal [facility] [place] BASIC METABOLIC PANELon 08-21 Anion gap [Moles/Vol] 10 mmol/L Normal 7-20 [facility] Comment on above: Performed By: #### L [id number] ####[facility] (BEAKER)[address] [place] [address] Calcium [Mass/Vol] 10.3 mg/dL Normal 8.6-10.3 [facility] Comment on above: Performed By: #### L [id number] ####[facility] (BEAKER)[address] [place] [address] Chloride [Moles/Vol] 94 mmol/L Low 98-107 [facility] Comment on above: Performed By: #### L [id number] ####[facility] (BEAKER)[address] [place] [address] CO2 [Moles/Vol] 34 mmol/L High 21-31 [facility] Comment on above: Performed By: #### L [id number] ####[facility] (BEAKER)[address] [place] [address] Creatinine [Mass/Vol] 0.98 mg/dL Normal 0.70-1.30 [facility] Comment on above: Performed By: #### L [id number] ####[facility] ([facility])[address] [place] [address] GLOMERULAR FILTRATION RATE ML/MIN/1.73 SQ M.PREDICTED 85.6 mL/min/1.73m*2 Normal >60.0 [facility] [place] Comment on above: Result Comment: The [facility] [place]???s estimated glomerular filtration rate (eGFR) will no [...] L [id number] ####[facility] ([facility])[address] [place] [address] Glucose [Mass/Vol] 184 mg/dL High 70-100 [facility] Comment on above: Performed By: #### L [id number] ####[facility] ([facility])[address] [place] [address] Potassium [Moles/Vol] 4.1 mmol/L Normal 3.5-5.1 [facility] Comment on above: Performed By: #### L [id number] ####[facility] ([facility])[address] [place] [address] Sodium [Moles/Vol] 134 mmol/L Low 136-145 [facility] Comment on above: Performed By: #### L [id number] ####[facility] ([facility])[address] [place] [address] Urea nitrogen [Mass/Vol] 27 mg/dL High 7-25 [facility] [place] Comment on above: Performed By: #### L [id number] ####[facility] ([facility])[address] [place] [address] UREA NITROGEN/CREATININE (MASS RATIO) IN SER/PLAS 27.6 Normal [facility] Comment on above: Performed By: #### L [id number] ####[facility] (BEAKER)[address] [place] [address] CBC WITH AUTO DIFFERENTIALon 08-30-2024 Basophils (Bld) [#/Vol] 0.09 10*3/uL Normal 0.00-0.20 [facility] [place] Comment on above: Performed By: #### L [id number] ####[facility] ([facility])[address] [place] [address] Basophils/100 WBC (Bld) 1.0 % Normal 0.0-1.0 [facility] Comment on above: Performed By: #### L [id number] ####[facility] (BEAKER)[address] [place] [address] Eosinophils (Bld) [#/Vol] 0.54 10*3/uL High 0.00-0.50 [facility] [place] Comment on above: Performed By: #### L [id number] ####[facility] (BEAKER)[address] [place] [address] Eosinophils/100 WBC (Bld) 5.9 % Normal 0.0-6.0 [facility] [place] Comment on above: Performed By: #### L [id number] ####[facility] (BEAKER)[address] [place] [address] Erythrocyte distribution width (RBC) [Ratio] 14.9 % Normal 11.5-15.0 [facility] [place] Comment on above: Performed By: #### L [id number] ####[facility] (BEAKER)[address] [place] [address] ERYTHROCYTE MEAN CORPUSCULAR HEMOGLOBIN CONCENTRATION (G/DL) BY AUTOMATED 31.0 g/dL Low 32.0-35.0 [facility] [place] Comment on above: Performed By: #### L [id number] ####[facility] (BEAKER)[address] [place] [address] Hematocrit (Bld) [Volume fraction] 50.9 % Normal 39.0-55.0 [facility] [place] Comment on above: Performed By: #### L [id number] ####[facility] (BEAKER)[address] [place] [address] Hemoglobin (Bld) [Mass/Vol] 15.8 g/dL Normal 13.0-17.0 [facility] [place] Comment on above: Performed By: #### L [id number] ####[facility] ([facility])[address] [place] [address] Immature granulocytes (Bld) [#/Vol] 0.06 10*3/uL Normal 0.00-0.20 [facility] [place] Comment on above: Performed By: #### L [id number] ####[facility] ([facility])[address] [place] [address] Immature granulocytes/100 WBC (Bld) 0.7 % Normal 0.0-1.0 [facility] [place] Comment on above: Performed By: #### L [id number] ####[facility] ([facility])[address] [place] [address] Lymphocytes (Bld) [#/Vol] 1.65 10*3/uL Normal 1.20-4.00 [facility] [place] Comment on above: Performed By: #### L [id number] ####[facility] (BEAKER)[address] [place] [address] Lymphocytes/100 WBC (Bld) 17.9 % Low 20.0-45.0 [facility] [place] Comment on above: Performed By: #### L [id number] ####[facility] (BEAKER)[address] [place] [address] MCH (RBC) [Entitic mass] 29.2 pg Normal 27.0-33.0 [facility] [place] Comment on above: Performed By: #### L [id number] ####[facility] (BEAKER)[address] [place] [address] MCV (RBC) [Entitic vol] 93.9 fL Normal 82.0-98.[address] [facility] Comment on above: Performed By: #### L [id number] ####[facility] (BEAKER)[address] [place] [address] Monocytes (Bld) [#/Vol] 1.05 10*3/uL High 0.10-1.00 [facility] [place] Comment on above: Performed By: #### L [id number] ####[facility] (BEAKER)[address] [place] [address] Monocytes/100 WBC (Bld) 11.4 % Normal 5.0-12.[address] [facility] Comment on above: Performed By: #### L [id number] ####[facility] (BEAKER)[address] [place], [place] [address] Neutrophils (Bld) [#/Vol] 5.82 10*3/uL Normal 1.60-7.60 [facility] [place] Comment on above: Performed By: #### L [id number] ####[facility] (BEAKER)[address] [place], [place] [address] Neutrophils/100 WBC (Bld) 63.1 % Normal 40.0-72.0 [facility] [place] Comment on above: Performed By: #### L [id number] ####[facility] (BEAKER)[address] [place] [address] NRBC (PER 100 WBCS) BY AUTOMATED COUNT 0.0 % Normal 0 [facility] [place] Comment on above: Performed By: #### L [id number] ####[facility] (BEAKER)[address] [place], [place] [address] PLATELETS (10*3/UL) IN BLOOD AUTOMATED COUNT 298 10*3/uL Normal 150-400 [facility] [place] Comment on above: Performed By: #### L [id number] ####[facility] (BEAKER)[address] [place], [place] [address] RBC (Bld) [#/Vol] 5.42 10*6/uL Normal 4.20-5.70 [facility] Comment on above: Performed By: #### L [id number] ####[facility] (BEAKER)[address] [place] [address] WBC (Bld) [#/Vol] 9.21 10*3/uL Normal 4.00-10.60 [facility] Comment on above: Performed By: #### L [id number] ####[facility] ([facility])[address] [place] [address] CONSULTon 08-30-2024 CONSULT Normal [facility] [place] MAGNESIUMon 08-30-2024 Magnesium [Mass/Vol] 1.7 mg/dL Low 1.9-2.7 [facility] Comment on above: Performed By: #### L [id number] ####[facility] ([facility])[address] [place] [address] NURSNOTEon 08-30-2024 NURSNOTE [facility] POCT GLUCOSE METER UNSOLICIT ED RESULTSon 08-30-2024 Glucose [Mass/Vol] 294 mg/dL High 70-105 [facility] Comment on above: Order Comment: Waive d Testing in the ED is performed under the ED CLIA certificate #[id number]. Result Comment: [email or web address] Value Noted Performed By: #### L [id number] ####[facility] ([facility])[address] [place] [address] Glucose [Mass/Vol] 162 mg/dL High 70-105 [facility] Comment on above: Order Comment: Waive d Testing in the ED is performed under the ED CLIA certificate #[id number]. Result Comment: [email or web address] rbo Performed By: #### L [id number] ####[facility] ([facility])[address] [place] [address] Glucose [Mass/Vol] 193 mg/dL High 70-105 [facility] Comment on above: Order Comment: Waive d Testing in the ED is performed under the ED CLIA certificate #[id number]. Result Comment: [email or web address] rbo Performed By: #### L [id number] ####[facility] ([facility])[address] [place] [address] Glucose [Mass/Vol] 235 mg/dL High 70-105 [facility] Comment on above: Order Comment: Waive d Testing in the ED is performed under the ED CLIA certificate #[id number]. Result Comment: [email or web address] [email or web address] Performed By: #### L [id number] ####[facility] (BEAKER)[address] [place] [address] Glucose [Mass/Vol] 209 mg/dL High 70-105 [facility] Comment on above: Order Comment: Waive d Testing in the ED is performed under the ED CLIA certificate #[id number]. Result Comment: [email or web address] [email or web address] Performed By: #### L [id number] ####[facility] ([facility])[address] [place] [address] BASIC METABOLIC PANELon 02-0 Anion gap [Moles/Vol] 7 mmol/L Normal 7-20 [facility] Comment on above: Performed By: #### L [id number] ####[facility] ([facility])[address] [place] [address] Calcium [Mass/Vol] 10.5 mg/dL High 8.6-10.3 [facility] Comment on above: Performed By: #### L [id number] ####[facility] CENTER)[address] [place] [address] Chloride [Moles/Vol] 93 mmol/L Low 98-107 [facility] Comment on above: Performed By: #### L [id number] ####[facility] ([facility])[address] [place] [address] CO2 [Moles/Vol] 38 mmol/L High 21-31 [facility] Comment on above: Performed By: #### L [id number] ####[facility] ([facility])[address] [place] [address] Creatinine [Mass/Vol] 0.96 mg/dL Normal 0.70-1.30 [facility] Comment on above: Performed By: #### L [id number] ####[facility] ([facility])[address] [place] [address] GLOMERULAR FILTRATION RATE ML/MIN/1.73 SQ M.PREDICTED 87.7 mL/min/1.73m*2 Normal >60.0 [facility] Comment on above: Result Comment: The [facility]???s estimated glomerular filtration rate (eGFR) will no [...] L [id number] ####[facility] ([facility])[address] [place] [address] Glucose [Mass/Vol] 182 mg/dL High 70-100 [facility] Comment on above: Performed By: #### L [id number] ####[facility] ([facility])[address] [place] [address] Potassium [Moles/Vol] 4.1 mmol/L Normal 3.5-5.1 [facility] Comment on above: Performed By: #### L [id number] ####[facility] ([facility])[address] [place] [address] Sodium [Moles/Vol] 134 mmol/L Low 136-145 [facility] Comment on above: Performed By: #### L [id number] ####[facility] ([facility])[address] [place] [address] Urea nitrogen [Mass/Vol] 23 mg/dL Normal 7-25 [facility] Comment on above: Performed By: #### L [id number] ####[facility] ([facility])[address] [place] [address] UREA NITROGEN/CREATININE (MASS RATIO) IN SER/PLAS 24.0 Normal [facility] Comment on above: Performed By: #### L [id number] ####[facility] ([facility])[address] [place] [address] CBC WITH AUTO DIFFERENTIALon 08-29-2024 Basophils (Bld) [#/Vol] 0.09 10*3/uL Normal 0.00-0.20 [facility] Comment on above: Performed By: #### L [id number] ####[facility] (BEAKER)[address] [place] [address] Basophils/100 WBC (Bld) 1.0 % Normal 0.0-1.0 [facility] Comment on above: Performed By: #### L [id number] ####[facility] (BEAKER)[address] [address] Eosinophils (Bld) [#/Vol] 0.48 10*3/uL Normal 0.00-0.50 [facility] Comment on above: Performed By: #### L [id number] ####[facility] (BEAKER)[address] [place] [address] Eosinophils/100 WBC (Bld) 5.3 % Normal 0.0-6.0 [facility] Comment on above: Performed By: #### L [id number] ####[facility] (BEAKER)[address] [place] [address] Erythrocyte distribution width (RBC) [Ratio] 15.0 % Normal 11.5-15.0 [facility] Comment on above: Performed By: #### L [id number] ####[facility] (BEAKER)[address] [place] [address] ERYTHROCYTE MEAN CORPUSCULAR HEMOGLOBIN CONCENTRATION (G/DL) BY AUTOMATED 30.5 g/dL Low 32.0-35.0 [facility] Comment on above: Performed By: #### L [id number] ####[facility] (BEAKER)[address] [place] [address] Hematocrit (Bld) [Volume fraction] 51.2 % Normal 39.0-55.0 [facility] Comment on above: Performed By: #### L [id number] ####[facility] (BEAKER)[address] [place] [address] Hemoglobin (Bld) [Mass/Vol] 15.6 g/dL Normal 13.0-17.0 [facility] Comment on above: Performed By: #### L [id number] ####[facility] (BEAKER)[address] [place] [address] Immature granulocytes (Bld) [#/Vol] 0.07 10*3/uL Normal 0.00-0.20 [facility] Comment on above: Performed By: #### L [id number] ####[facility] ([facility])[address] [place] [address] Immature granulocytes/100 WBC (Bld) 0.8 % Normal 0.0-1.0 [facility] Comment on above: Performed By: #### L [id number] ####[facility] ([facility])[address] [place] [address] Lymphocytes (Bld) [#/Vol] 1.41 10*3/uL Normal 1.20-4.00 [facility] Comment on above: Performed By: #### L [id number] ####[facility] (BEAKER)[address] [place] [address] Lymphocytes/100 WBC (Bld) 15.7 % Low 20.0-45.0 [facility] Comment on above: Performed By: #### L [id number] ####[facility] (BEAKER)[address] [place] [address] MCH (RBC) [Entitic mass] 29.0 pg Normal 27.0-33.0 [facility] Comment on above: Performed By: #### L [id number] ####[facility] (BEAKER)[address] [place] [address] MCV (RBC) [Entitic vol] 95.2 fL Normal 82.0-98.[address] [facility] Comment on above: Performed By: #### L [id number] ####[facility] ([facility])[address] [place] [address] Monocytes (Bld) [#/Vol] 0.82 10*3/uL Normal 0.10-1.00 [facility] Comment on above: Performed By: #### L [id number] ####[facility] (BEAKER)[address] [place] [address] Monocytes/100 WBC (Bld) 9.1 % Normal 5.0-12.[address] [facility] Comment on above: Performed By: #### L [id number] ####[facility] (BEAKER)[address] [place], [place] [address] Neutrophils (Bld) [#/Vol] 6.11 10*3/uL Normal 1.60-7.60 [facility] Comment on above: Performed By: #### L [id number] ####[facility] (BEAKER)[address] [place], [place] [address] Neutrophils/100 WBC (Bld) 68.1 % Normal 40.0-72.0 [facility] Comment on above: Performed By: #### L [id number] ####[facility] (BEAKER)[address] [place], [place] [address] NRBC (PER 100 WBCS) BY AUTOMATED COUNT 0.0 % Normal 0 [facility] Comment on above: Performed By: #### L [id number] ####[facility] ([facility])[address] [place], [place] [address] PLATELETS (10*3/UL) IN BLOOD AUTOMATED COUNT 262 10*3/uL Normal 150-400 [facility] Comment on above: Performed By: #### L [id number] ####[facility] (BEAKER)[address] [place], [place] [address] RBC (Bld) [#/Vol] 5.38 10*6/uL Normal 4.20-5.70 [facility] Comment on above: Performed By: #### L [id number] ####[facility] (BEAKER)[address] [place] [address] WBC (Bld) [#/Vol] 8.98 10*3/uL Normal 4.00-10.60 [facility] Comment on above: Performed By: #### L [id number] ####[facility] ([facility])[address] [place] [address] MAGNESIUMon 08-29-2024 Magnesium [Mass/Vol] 1.7 mg/dL Low 1.9-2.7 [facility] Comment on above: Performed By: #### L [id number] ####[facility] ([facility])[address] [place] [address] POCT GLUCOSE METER UNSOLICIT ED RESULTSon 08-29-2024 Glucose [Mass/Vol] 284 mg/dL High 70-105 [facility] Comment on above: Order Comment: Waive d Testing in the ED is performed under the ED CLIA certificate #[id number]. Result Comment: [email or web address] [email or web address] Performed By: #### L [id number] ####[facility] ([facility])[address] [place] [address] Glucose [Mass/Vol] 259 mg/dL High 70-105 [facility] Comment on above: Order Comment: Waive d Testing in the ED is performed under the ED CLIA certificate #[id number]. Result Comment: aall [email or web address] Performed By: #### L [id number] ####[facility] ([facility])[address] [place] [address] Glucose [Mass/Vol] 301 mg/dL High 70-105 [facility] Comment on above: Order Comment: Waive d Testing in the ED is performed under the ED CLIA certificate #[id number]. Result Comment: aall [email or web address] Performed By: #### L [id number] ####[facility] ([facility])[address] [place] [address] Glucose [Mass/Vol] 166 mg/dL High 70-105 [facility] Comment on above: Order Comment: Waive d Testing in the ED is performed under the ED CLIA certificate #[id number]. Result Comment: aall [email or web address] Performed By: #### L [id number] ####[facility] ([facility])[address] [place] [address] BASIC METABOLIC PANELon 02-0 Anion gap [Moles/Vol] 8 mmol/L Normal 7-20 [facility] Comment on above: Performed By: #### L [id number] ####[facility] ([facility])[address] [place] [address] Calcium [Mass/Vol] 9.8 mg/dL Normal 8.6-10.3 [facility] Comment on above: Performed By: #### L [id number] ####[facility] ([facility])[address] [place] [address] Chloride [Moles/Vol] 96 mmol/L Low 98-107 [facility] Comment on above: Performed By: #### L [id number] ####[facility] ([facility])[address] [place] [address] CO2 [Moles/Vol] 37 mmol/L High 21-31 [facility] Comment on above: Performed By: #### L [id number] ####[facility] ([facility])[address] [place] [address] Creatinine [Mass/Vol] 0.82 mg/dL Normal 0.70-1.30 [facility] Comment on above: Performed By: #### L [id number] ####[facility] ([facility])[address] [facility] [place] [address] GLOMERULAR FILTRATION RATE ML/MIN/1.73 SQ M.PREDICTED 97.5 mL/min/1.73m*2 Normal >60.0 [facility] Comment on above: Result Comment: The [facility]???s estimated glomerular filtration rate (eGFR) will no [...] L [id number] ####[facility] ([facility])[address] [place] [address] Glucose [Mass/Vol] 183 mg/dL High 70-100 [facility] Comment on above: Performed By: #### L [id number] ####[facility] ([facility])[address] [place] [address] Potassium [Moles/Vol] 3.7 mmol/L Normal 3.5-5.1 [facility] Comment on above: Performed By: #### L [id number] ####[facility] ([facility])[address] [place] [address] Sodium [Moles/Vol] 137 mmol/L Normal 136-145 [facility] Comment on above: Performed By: #### L [id number] ####[facility] ([facility])[address] [place] [address] Urea nitrogen [Mass/Vol] 17 mg/dL Normal 7-25 [facility] Comment on above: Performed By: #### L [id number] ####[facility] ([facility])[address] [place] [address] UREA NITROGEN/CREATININE (MASS RATIO) IN SER/PLAS 20.7 Normal [facility] Comment on above: Performed By: #### L [id number] ####[facility] ([facility])[address] [place] [address] CBC WITH AUTO DIFFERENTIALon 08-28-2024 Basophils (Bld) [#/Vol] 0.09 10*3/uL Normal 0.00-0.20 [facility] Comment on above: Performed By: #### L [id number] ####[facility] ([facility])[address] [place] [address] Basophils/100 WBC (Bld) 0.9 % Normal 0.0-1.0 [facility] Comment on above: Performed By: #### L [id number] ####[facility] ([facility])[address] [place] [address] Eosinophils (Bld) [#/Vol] 0.40 10*3/uL Normal 0.00-0.50 [facility] Comment on above: Performed By: #### L [id number] ####[facility] ([facility])[address] [place] [address] Eosinophils/100 WBC (Bld) 4.2 % Normal 0.0-6.0 [facility] Comment on above: Performed By: #### L [id number] ####[facility] ([facility])[address] [place] [address] Erythrocyte distribution width (RBC) [Ratio] 14.8 % Normal 11.5-15.0 [facility] Comment on above: Performed By: #### L [id number] ####[facility] ([facility])[address] [place] [address] ERYTHROCYTE MEAN CORPUSCULAR HEMOGLOBIN CONCENTRATION (G/DL) BY AUTOMATED 30.3 g/dL Low 32.0-35.0 [facility] Comment on above: Performed By: #### L [id number] ####[facility] ([facility])[address] [place] [address] Hematocrit (Bld) [Volume fraction] 50.9 % Normal 39.0-55.0 [facility] Comment on above: Performed By: #### L [id number] ####[facility] (BEAKER)[address] [place] [address] Hemoglobin (Bld) [Mass/Vol] 15.4 g/dL Normal 13.0-17.0 [facility] Comment on above: Performed By: #### L [id number] ####[facility] (BEAKER)[address] [place] [address] Immature granulocytes (Bld) [#/Vol] 0.06 10*3/uL Normal 0.00-0.20 [facility] Comment on above: Performed By: #### L [id number] ####[facility] ([facility])[address] [facility] [address] Immature granulocytes/100 WBC (Bld) 0.6 % Normal 0.0-1.0 [facility] Comment on above: Performed By: #### L [id number] ####[facility] ([facility])[address] [place] [address] Lymphocytes (Bld) [#/Vol] 1.68 10*3/uL Normal 1.20-4.00 [facility] Comment on above: Performed By: #### L [id number] ####[facility] ([facility])[address] [place] [address] Lymphocytes/100 WBC (Bld) 17.6 % Low 20.0-45.0 [facility] Comment on above: Performed By: #### L [id number] ####[facility] ([facility])[address] [place] [address] MCH (RBC) [Entitic mass] 29.2 pg Normal 27.0-33.0 [facility] Comment on above: Performed By: #### L [id number] ####[facility] ([facility])[address] [place] [address] MCV (RBC) [Entitic vol] 96.6 fL Normal 82.0-98.[address] [facility] Comment on above: Performed By: #### L [id number] ####[facility] ([facility])[address] [facility] [place] [address] Monocytes (Bld) [#/Vol] 0.99 10*3/uL Normal 0.10-1.00 [facility] Comment on above: Performed By: #### L [id number] ####[facility] ([facility])[address] [place] [address] Monocytes/100 WBC (Bld) 10.4 % Normal 5.0-12.[address] [facility] Comment on above: Performed By: #### L [id number] ####[facility] ([facility])[address] [place] [address] Neutrophils (Bld) [#/Vol] 6.33 10*3/uL Normal 1.60-7.60 [facility] Comment on above: Performed By: #### L [id number] ####[facility] ([facility])[address] [address] Neutrophils/100 WBC (Bld) 66.3 % Normal 40.0-72.0 [facility] Comment on above: Performed By: #### L [id number] ####[facility] ([facility])[address] [place] [address] NRBC (PER 100 WBCS) BY AUTOMATED COUNT 0.0 % Normal 0 [facility] Comment on above: Performed By: #### L [id number] ####[facility] ([facility])[address] [place] [address] PLATELETS (10*3/UL) IN BLOOD AUTOMATED COUNT 252 10*3/uL Normal 150-400 [facility] Comment on above: Performed By: #### L [id number] ####[facility] ([facility])[address] [place] [address] RBC (Bld) [#/Vol] 5.27 10*6/uL Normal 4.20-5.70 [facility] Comment on above: Performed By: #### L [id number] ####[facility] ([facility])[address] [place] [address] WBC (Bld) [#/Vol] 9.55 10*3/uL Normal 4.00-10.60 [facility] Comment on above: Performed By: #### L [id number] ####[facility] ([facility])[address] [place] [address] MAGNESIUMon 08-28-2024 Magnesium [Mass/Vol] 1.8 mg/dL Low 1.9-2.7 [facility] Comment on above: Performed By: #### L [id number] ####[facility] ([facility])[address] [place] [address] NURSNOTEon 08-28-2024 NURSNOTE Normal [facility] POCT GLUCOSE METER UNSOLICIT ED RESULTSon 08-28-2024 Glucose [Mass/Vol] 258 mg/dL High 70-105 [facility] Comment on above: Order Comment: Waive d Testing in the ED is performed under the ED CLIA certificate #[id number]. Result Comment: [email or web address] Performed By: #### L [id number] ####[facility] ([facility])[address] [place] [address] Glucose [Mass/Vol] 177 mg/dL High 70-105 [facility] Comment on above: Order Comment: Waive d Testing in the ED is performed under the ED CLIA certificate #[id number]. Result Comment: [email or web address] [email or web address] Performed By: #### L [id number] ####[facility] ([facility])[address] [place] [address] Glucose [Mass/Vol] 242 mg/dL High 70-105 [facility] Comment on above: Order Comment: Waive d Testing in the ED is performed under the ED CLIA certificate #[id number]. Result Comment: [email or web address] [email or web address] Performed By: #### L [id number] ####[facility] ([facility])[address] [place] [address] Glucose [Mass/Vol] 200 mg/dL High 70-105 [facility] Comment on above: Order Comment: Waive d Testing in the ED is performed under the ED CLIA certificate #[id number]. Result Comment: aall [email or web address] Performed By: #### L [id number] ####[facility] ([facility])[address] [place] [address] 30on 08-27-2024 30 Normal [facility] BASIC METABOLIC PANELon Anion gap [Moles/Vol] 6 mmol/L Low 7-20 [facility] Comment on above: Performed By: #### L [id number] ####[facility] ([facility])[address] [place] [address] Calcium [Mass/Vol] 9.8 mg/dL Normal 8.6-10.3 [facility] Comment on above: Performed By: #### L [id number] ####[facility] ([facility])[address] [place] [address] Chloride [Moles/Vol] 97 mmol/L Low 98-107 [facility] Comment on above: Performed By: #### L [id number] ####[facility] ([facility])[address] [place] [address] CO2 [Moles/Vol] 41 mmol/L Critically high 21-31 [facility] Comment on above: Performed By: #### L [id number] ####[facility] ([facility])[address] [place] [address] Creatinine [Mass/Vol] 0.81 mg/dL Normal 0.70-1.30 [facility] Comment on above: Performed By: #### L [id number] ####[facility] ([facility])[address] [place] [address] GLOMERULAR FILTRATION RATE ML/MIN/1.73 SQ M.PREDICTED 97.8 mL/min/1.73m*2 Normal >60.0 [facility] Comment on above: Result Comment: The [facility]???s estimated glomerular filtration rate (eGFR) will no [...] L [id number] ####[facility] ([facility])[address] [place] [address] Glucose [Mass/Vol] 187 mg/dL High 70-100 [facility] Comment on above: Performed By: #### L [id number] ####[facility] ([facility])[address] [place] [address] Potassium [Moles/Vol] 3.5 mmol/L Normal 3.5-5.1 [facility] Comment on above: Performed By: #### L [id number] ####[facility] ([facility])[address] [place] [address] Sodium [Moles/Vol] 140 mmol/L Normal 136-145 [facility] Comment on above: Performed By: #### L [id number] ####[facility] ([facility])[address] [place] [place] [address] Urea nitrogen [Mass/Vol] 16 mg/dL Normal 7-25 [facility] Comment on above: Performed By: #### L [id number] ####[facility] ([facility])[address] [place] [address] UREA NITROGEN/CREATININE (MASS RATIO) IN SER/PLAS 19.8 Normal [facility] Comment on above: Performed By: #### L [id number] ####[facility] ([facility])[address] [place] [address] CBC WITH AUTO DIFFERENTIALon 08-27-2024 Basophils (Bld) [#/Vol] 0.06 10*3/uL Normal 0.00-0.20 [facility] Comment on above: Performed By: #### L [id number] ####[facility] ([facility])[address] [place] [address] Basophils/100 WBC (Bld) 0.7 % Normal 0.0-1.[address] [facility] Comment on above: Performed By: #### L [id number] ####[facility] ([facility])[address] [place] [address] Eosinophils (Bld) [#/Vol] 0.38 10*3/uL Normal 0.00-0.50 [facility] Comment on above: Performed By: #### L [id number] ####[facility] (BEAKER)[address] [place] [address] Eosinophils/100 WBC (Bld) 4.7 % Normal 0.0-6.0 [facility] Comment on above: Performed By: #### L [id number] ####[facility] (BEAKER)[address] [place] [address] Erythrocyte distribution width (RBC) [Ratio] 14.6 % Normal 11.5-15.0 [facility] Comment on above: Performed By: #### L [id number] ####[facility] (BEAKER)[address] [place] [address] ERYTHROCYTE MEAN CORPUSCULAR HEMOGLOBIN CONCENTRATION (G/DL) BY AUTOMATED 29.7 g/dL Low 32.0-35.0 [facility] Comment on above: Performed By: #### L [id number] ####[facility] (BEAKER)[address] [place] [address] Hematocrit (Bld) [Volume fraction] 49.5 % Normal 39.0-55.0 [facility] Comment on above: Performed By: #### L [id number] ####[facility] (BEAKER)[address] [place] [address] Hemoglobin (Bld) [Mass/Vol] 14.7 g/dL Normal 13.0-17.0 [facility] Comment on above: Performed By: #### L [id number] ####[facility] (BEAKER)[address] [place] [address] Immature granulocytes (Bld) [#/Vol] 0.04 10*3/uL Normal 0.00-0.20 [facility] Comment on above: Performed By: #### L [id number] ####[facility] (BEAKER)[address] [place] [address] Immature granulocytes/100 WBC (Bld) 0.5 % Normal 0.0-1.0 [facility] Comment on above: Performed By: #### L [id number] ####[facility] (BEAKER)[address] [place] [address] Lymphocytes (Bld) [#/Vol] 1.42 10*3/uL Normal 1.20-4.00 [facility] Comment on above: Performed By: #### L [id number] ####[facility] (BEAKER)[address] [place] [address] Lymphocytes/100 WBC (Bld) 17.7 % Low 20.0-45.0 [facility] Comment on above: Performed By: #### L [id number] ####[facility] ([facility]AKER)[address] [place] [address] MCH (RBC) [Entitic mass] 28.9 pg Normal 27.0-33.0 [facility] Comment on above: Performed By: #### L [id number] ####[facility] (BEAKER)[address] [place] [address] MCV (RBC) [Entitic vol] 97.4 fL Normal 82.0-98.[address] [facility] Comment on above: Performed By: #### L [id number] ####[facility] (BEAKER)[address] [place] [address] Monocytes (Bld) [#/Vol] 0.92 10*3/uL Normal 0.10-1.00 [facility] Comment on above: Performed By: #### L [id number] ####[facility] (BEAKER)[address] [place] [address] Monocytes/100 WBC (Bld) 11.5 % Normal 5.0-12.[address] [facility] Comment on above: Performed By: #### L [id number] ####[facility] ([facility]AKER)[address] [place] [address] Neutrophils (Bld) [#/Vol] 5.19 10*3/uL Normal 1.60-7.60 [facility] Comment on above: Performed By: #### L [id number] ####[facility] (BEAKER)[address] [place] [address] Neutrophils/100 WBC (Bld) 64.9 % Normal 40.0-72.0 [facility] Comment on above: Performed By: #### L [id number] ####[facility] ([facility])[address] [place] [address] NRBC (PER 100 WBCS) BY AUTOMATED COUNT 0.0 % Normal 0 [facility] Comment on above: Performed By: #### L [id number] ####[facility] ([facility])[address] [place] [address] PLATELETS (10*3/UL) IN BLOOD AUTOMATED COUNT 209 10*3/uL Normal 150-400 [facility] Comment on above: Performed By: #### L [id number] ####[facility] ([facility])[address] [place] [address] RBC (Bld) [#/Vol] 5.08 10*6/uL Normal 4.20-5.70 [facility] Comment on above: Performed By: #### L [id number] ####[facility] ([facility])[address] [address] WBC (Bld) [#/Vol] 8.01 10*3/uL Normal 4.00-10.60 [facility] Comment on above: Performed By: #### L [id number] ####[facility] ([facility])[address] [place] [address] MAGNESIUMon 08-27-2024 Magnesium [Mass/Vol] 1.6 mg/dL Low 1.9-2.7 [facility] Comment on above: Performed By: #### L [id number] ####[facility] ([facility])[address] [place] [address] POCT GLUCOSE METER UNSOLICIT ED RESULTSon 08-27-2024 Glucose [Mass/Vol] 144 mg/dL High 70-105 [facility] Comment on above: Order Comment: Waive d Testing in the ED is performed under the ED CLIA certificate #[id number]. Result Comment: [email or web address] Performed By: #### L [id number] ####[facility] (BEAKER)[address] [place] [address] Glucose [Mass/Vol] 204 mg/dL High 70-105 [facility] Comment on above: Order Comment: Waive d Testing in the ED is performed under the ED CLIA certificate #[id number]. Result Comment: [email or web address] Performed By: #### L [id number] ####[facility] ([facility])[address] [place] [address] Glucose [Mass/Vol] 230 mg/dL High 70-105 [facility] Comment on above: Order Comment: Waive d Testing in the ED is performed under the ED CLIA certificate #[id number]. Result Comment: [email or web address] Performed By: #### L [id number] ####[facility] ([facility])[address] [place] [address] Glucose [Mass/Vol] 174 mg/dL High 70-105 [facility] Comment on above: Order Comment: Waive d Testing in the ED is performed under the ED CLIA certificate #[id number]. Result Comment: [email or web address] Performed By: #### L [id number] ####[facility] ([facility])[address] [place] [address] BASIC METABOLIC PANELon 02-0 Anion gap [Moles/Vol] 9 mmol/L Normal 7-20 [facility] Comment on above: Performed By: #### L [id number] ####[facility] (BEAKER)[address] [place] [address] Calcium [Mass/Vol] 9.4 mg/dL Normal 8.6-10.3 [facility] Comment on above: Performed By: #### L [id number] ####[facility] ([facility]AKER)[address] [place] [address] Chloride [Moles/Vol] 100 mmol/L Normal 98-107 [facility] Comment on above: Performed By: #### L [id number] ####[facility] (BEAKER)[address] [place] [address] CO2 [Moles/Vol] 36 mmol/L High 21-31 [facility] Comment on above: Performed By: #### L [id number] ####[facility] ([facility])[address] [place] [address] Creatinine [Mass/Vol] 0.78 mg/dL Normal 0.70-1.30 [facility] Comment on above: Performed By: #### L [id number] ####[facility] ([facility])[address] [place] [address] GLOMERULAR FILTRATION RATE ML/MIN/1.73 SQ M.PREDICTED 99.0 mL/min/1.73m*2 Normal >60.0 [facility] Comment on above: Result Comment: The [facility]???s estimated glomerular filtration rate (eGFR) will no [...] L [id number] ####[facility] ([facility])[address] [place] [address] Glucose [Mass/Vol] 156 mg/dL High 70-100 [facility] Comment on above: Performed By: #### L [id number] ####[facility] ([facility])[address] [place] [address] Potassium [Moles/Vol] 3.5 mmol/L Normal 3.5-5.1 [facility] Comment on above: Performed By: #### L [id number] ####[facility] ([facility])[address] [place] [address] Sodium [Moles/Vol] 141 mmol/L Normal 136-145 [facility] Comment on above: Performed By: #### L [id number] ####[facility] (BEAKER)[address] [place] [address] Urea nitrogen [Mass/Vol] 17 mg/dL Normal 7-25 [facility] Comment on above: Performed By: #### L [id number] ####[facility] (BEAKER)[address] [place] [address] UREA NITROGEN/CREATININE (MASS RATIO) IN SER/PLAS 21.8 Normal [facility] Comment on above: Performed By: #### L [id number] ####[facility] (BEAKER)[address] [place] [address] CBC WITH AUTO DIFFERENTIALon 08-26-2024 Basophils (Bld) [#/Vol] 0.06 10*3/uL Normal 0.00-0.20 [facility] Comment on above: Performed By: #### L [id number] ####[facility] (BEAKER)[address] [place] [address] Basophils/100 WBC (Bld) 0.8 % Normal 0.0-1.0 [facility] Comment on above: Performed By: #### L [id number] ####[facility] (BEAKER)[address] [place] [address] Eosinophils (Bld) [#/Vol] 0.39 10*3/uL Normal 0.00-0.50 [facility] Comment on above: Performed By: #### L [id number] ####[facility] (BEAKER)[address] [place] [address] Eosinophils/100 WBC (Bld) 5.4 % Normal 0.0-6.0 [facility] Comment on above: Performed By: #### L [id number] ####[facility] (BEAKER)[address] [place] [address] Erythrocyte distribution width (RBC) [Ratio] 14.7 % Normal 11.5-15.0 [facility] Comment on above: Performed By: #### L [id number] ####[facility] (BEAKER)[address] [place] [address] ERYTHROCYTE MEAN CORPUSCULAR HEMOGLOBIN CONCENTRATION (G/DL) BY AUTOMATED 30.4 g/dL Low 32.0-35.0 [facility] Comment on above: Performed By: #### L [id number] ####[facility] (BEAKER)[address] [place] [address] Hematocrit (Bld) [Volume fraction] 49.0 % Normal 39.0-55.0 [facility] Comment on above: Performed By: #### L [id number] ####[facility] (BEAKER)[address] [place] [address] Hemoglobin (Bld) [Mass/Vol] 14.9 g/dL Normal 13.0-17.0 [facility] Comment on above: Performed By: #### L [id number] ####[facility] (BEAKER)[address] [place] [address] Immature granulocytes (Bld) [#/Vol] 0.03 10*3/uL Normal 0.00-0.20 [facility] Comment on above: Performed By: #### L [id number] ####[facility] (BEAKER)[address] [place] [address] Immature granulocytes/100 WBC (Bld) 0.4 % Normal 0.0-1.0 [facility] Comment on above: Performed By: #### L [id number] ####[facility] (BEAKER)[address] [place], [place] [address] Lymphocytes (Bld) [#/Vol] 1.21 10*3/uL Normal 1.20-4.00 [facility] Comment on above: Performed By: #### L [id number] ####[facility] (BEAKER)[address] [place] [address] Lymphocytes/100 WBC (Bld) 16.7 % Low 20.0-45.0 [facility] Comment on above: Performed By: #### L [id number] ####[facility] (BEAKER)[address] [place] [address] MCH (RBC) [Entitic mass] 29.2 pg Normal 27.0-33.0 [facility] Comment on above: Performed By: #### L [id number] ####[facility] (BEAKER)[address] [place] [address] MCV (RBC) [Entitic vol] 96.1 fL Normal 82.0-98.[address] [facility] Comment on above: Performed By: #### L [id number] ####[facility] ([facility])[address] [place] [address] Monocytes (Bld) [#/Vol] 0.86 10*3/uL Normal 0.10-1.00 [facility] Comment on above: Performed By: #### L [id number] ####[facility] ([facility])[address] [place], [place] [address] Monocytes/100 WBC (Bld) 11.9 % Normal 5.0-12.[address] [facility] Comment on above: Performed By: #### L [id number] ####[facility] ([facility])[address] [place] [address] Neutrophils (Bld) [#/Vol] 4.70 10*3/uL Normal 1.60-7.60 [facility] Comment on above: Performed By: #### L [id number] ####[facility] (BEAKER)[address] [place] [address] Neutrophils/100 WBC (Bld) 64.8 % Normal 40.0-72.0 [facility] Comment on above: Performed By: #### L [id number] ####[facility] (BEAKER)[address] [place] [address] NRBC (PER 100 WBCS) BY AUTOMATED COUNT 0.0 % Normal 0 [facility] Comment on above: Performed By: #### L [id number] ####[facility] (BEAKER)[address] [place] [address] PLATELETS (10*3/UL) IN BLOOD AUTOMATED COUNT 208 10*3/uL Normal 150-400 [facility] Comment on above: Performed By: #### L [id number] ####[facility] ([facility])[address] [place] [address] RBC (Bld) [#/Vol] 5.10 10*6/uL Normal 4.20-5.70 [facility] Comment on above: Performed By: #### L [id number] ####[facility] ([facility])[address] [place] [address] WBC (Bld) [#/Vol] 7.25 10*3/uL Normal 4.00-10.60 [facility] Comment on above: Performed By: #### L [id number] ####[facility] ([facility])[address] [place] [address] MAGNESIUMon 08-26-2024 Magnesium [Mass/Vol] 1.8 mg/dL Low 1.9-2.7 [facility] Comment on above: Performed By: #### L [id number] ####[facility] ([facility])[address] [place] [address] POCT GLUCOSE METER UNSOLICIT ED RESULTSon 08-26-2024 Glucose [Mass/Vol] 246 mg/dL High 70-105 [facility] Comment on above: Order Comment: Waive d Testing in the ED is performed under the ED CLIA certificate #[id number]. Result Comment: [email or web address] Performed By: #### L [id number] ####[facility] ([facility])[address] [place] [address] Glucose [Mass/Vol] 204 mg/dL High 70-105 [facility] Comment on above: Order Comment: Waive d Testing in the ED is performed under the ED CLIA certificate #[id number]. Result Comment: [email or web address] Performed By: #### L [id number] ####[facility] ([facility])[address] [place] [address] Glucose [Mass/Vol] 219 mg/dL High 70-105 [facility] Comment on above: Order Comment: Waive d Testing in the ED is performed under the ED CLIA certificate #[id number]. Result Comment: [email or web address] Performed By: #### L [id number] ####[facility] (BEAKER)[address] [place] [address] Glucose [Mass/Vol] 163 mg/dL High 70-105 [facility] Comment on above: Order Comment: Waive d Testing in the ED is performed under the ED CLIA certificate #[id number]. Result Comment: [email or web address] Performed By: #### L [id number] ####[facility] ([facility])[address] [place] [address] 30on 08-25-2024 30 Normal [facility] BASIC METABOLIC PANELon Anion gap [Moles/Vol] 10 mmol/L Normal 7-20 [facility] Comment on above: Performed By: #### L [id number] ####[facility] (BEAKER)[address] [place] [address] Calcium [Mass/Vol] 9.5 mg/dL Normal 8.6-10.3 [facility] Comment on above: Performed By: #### L [id number] ####[facility] (BEAKER)[address] [place] [address] Chloride [Moles/Vol] 97 mmol/L Low 98-107 [facility] Comment on above: Performed By: #### L [id number] ####[facility] (BEAKER)[address] [place] [address] CO2 [Moles/Vol] 34 mmol/L High 21-31 [facility] Comment on above: Performed By: #### L [id number] ####[facility] (BEAKER)[address] [place] [address] Creatinine [Mass/Vol] 0.87 mg/dL Normal 0.70-1.30 [facility] Comment on above: Performed By: #### L [id number] ####[facility] ([facility])[address] [place] [address] GLOMERULAR FILTRATION RATE ML/MIN/1.73 SQ M.PREDICTED 95.8 mL/min/1.73m*2 Normal >60.0 [facility] Comment on above: Result Comment: The [facility]???s estimated glomerular filtration rate (eGFR) will no [...] L [id number] ####[facility] ([facility])[address] [place] [address] Glucose [Mass/Vol] 178 mg/dL High 70-100 [facility] Comment on above: Performed By: #### L [id number] ####[facility] ([facility])[address] [place] [address] Potassium [Moles/Vol] 3.5 mmol/L Normal 3.5-5.1 [facility] Comment on above: Performed By: #### L [id number] ####[facility] ([facility])[address] [place] [address] Sodium [Moles/Vol] 137 mmol/L Normal 136-145 [facility] Comment on above: Performed By: #### L [id number] ####[facility] ([facility])[address] [place] [address] Urea nitrogen [Mass/Vol] 20 mg/dL Normal 7-25 [facility] Comment on above: Performed By: #### L [id number] ####[facility] ([facility])[address] [place] [address] UREA NITROGEN/CREATININE (MASS RATIO) IN SER/PLAS 23.0 Normal [facility] Comment on above: Performed By: #### L [id number] ####[facility] (BEAKER)[address] [place] [address] CBC WITH AUTO DIFFERENTIALon 08-25-2024 Basophils (Bld) [#/Vol] 0.04 10*3/uL Normal 0.00-0.20 [facility] Comment on above: Performed By: #### L [id number] ####[facility] ([facility])[address] [place] [address] Basophils/100 WBC (Bld) 0.6 % Normal 0.0-1.0 [facility] Comment on above: Performed By: #### L [id number] ####[facility] (BEAKER)[address] [place] [address] Eosinophils (Bld) [#/Vol] 0.22 10*3/uL Normal 0.00-0.50 [facility] Comment on above: Performed By: #### L [id number] ####[facility] (BEAKER)[address] [place] [address] Eosinophils/100 WBC (Bld) 3.1 % Normal 0.0-6.0 [facility] Comment on above: Performed By: #### L [id number] ####[facility] (BEAKER)[address] [place] [address] Erythrocyte distribution width (RBC) [Ratio] 14.6 % Normal 11.5-15.0 [facility] Comment on above: Performed By: #### L [id number] ####[facility] (BEAKER)[address] [place] [address] ERYTHROCYTE MEAN CORPUSCULAR HEMOGLOBIN CONCENTRATION (G/DL) BY AUTOMATED 30.6 g/dL Low 32.0-35.0 [facility] Comment on above: Performed By: #### L [id number] ####[facility] (BEAKER)[address] [place] [address] Hematocrit (Bld) [Volume fraction] 49.4 % Normal 39.0-55.0 [facility] Comment on above: Performed By: #### L [id number] ####[facility] (BEAKER)[address] [place] [address] Hemoglobin (Bld) [Mass/Vol] 15.1 g/dL Normal 13.0-17.0 [facility] Comment on above: Performed By: #### L [id number] ####[facility] ([facility])[address] [place] [address] Immature granulocytes (Bld) [#/Vol] 0.04 10*3/uL Normal 0.00-0.20 [facility] Comment on above: Performed By: #### L [id number] ####[facility] ([facility])[address] [place] [address] Immature granulocytes/100 WBC (Bld) 0.6 % Normal 0.0-1.0 [facility] Comment on above: Performed By: #### L [id number] ####[facility] ([facility])[address] [place] [address] Lymphocytes (Bld) [#/Vol] 1.08 10*3/uL Low 1.20-4.00 [facility] Comment on above: Performed By: #### L [id number] ####[facility] ([facility])[address] [place] [address] Lymphocytes/100 WBC (Bld) 15.1 % Low 20.0-45.0 [facility] Comment on above: Performed By: #### L [id number] ####[facility] (BEAKER)[address] [place] [address] MCH (RBC) [Entitic mass] 28.9 pg Normal 27.0-33.0 [facility] Comment on above: Performed By: #### L [id number] ####[facility] (BEAKER)[address] [place] [address] MCV (RBC) [Entitic vol] 94.6 fL Normal 82.0-98.[address] [facility] Comment on above: Performed By: #### L [id number] ####[facility] (BEAKER)[address] [place] [address] Monocytes (Bld) [#/Vol] 0.94 10*3/uL Normal 0.10-1.00 [facility] Comment on above: Performed By: #### L [id number] ####[facility] (BEAKER)[address] [place] [address] Monocytes/100 WBC (Bld) 13.1 % High 5.0-12.[address] [facility] Comment on above: Performed By: #### L [id number] ####[facility] (BEAKER)[address] [place], [place] [address] Neutrophils (Bld) [#/Vol] 4.85 10*3/uL Normal 1.60-7.60 [facility] Comment on above: Performed By: #### L [id number] ####[facility] (BEAKER)[address] [place], [place] [address] Neutrophils/100 WBC (Bld) 67.5 % Normal 40.0-72.0 [facility] Comment on above: Performed By: #### L [id number] ####[facility] (BEAKER)[address] [place], [place] [address] NRBC (PER 100 WBCS) BY AUTOMATED COUNT 0.0 % Normal 0 [facility] Comment on above: Performed By: #### L [id number] ####[facility] (BEAKER)[address] [place], [place] [address] PLATELETS (10*3/UL) IN BLOOD AUTOMATED COUNT 200 10*3/uL Normal 150-400 [facility] Comment on above: Performed By: #### L [id number] ####[facility] (BEAKER)[address] [place], [place] [address] RBC (Bld) [#/Vol] 5.22 10*6/uL Normal 4.20-5.70 [facility] Comment on above: Performed By: #### L [id number] ####[facility] (BEAKER)[address] [place] [address] WBC (Bld) [#/Vol] 7.17 10*3/uL Normal 4.00-10.60 [facility] Comment on above: Performed By: #### L [id number] ####[facility] ([facility])[address] [place] [address] MAGNESIUMon 08-25-2024 Magnesium [Mass/Vol] 1.6 mg/dL Low 1.9-2.7 [facility] Comment on above: Performed By: #### L [id number] ####[facility] ([facility])[address] [place] [address] POCT GLUCOSE METER UNSOLICIT ED RESULTSon 08-25-2024 Glucose [Mass/Vol] 154 mg/dL High 70-105 [facility] Comment on above: Order Comment: Waive d Testing in the ED is performed under the ED CLIA certificate #[id number]. Result Comment: [email or web address] Performed By: #### L [id number] ####[facility] ([facility])[address] [place] [address] Glucose [Mass/Vol] 196 mg/dL High 70-105 [facility] Comment on above: Order Comment: Waive d Testing in the ED is performed under the ED CLIA certificate #[id number]. Result Comment: [email or web address] [email or web address] Performed By: #### L [id number] ####[facility] ([facility])[address] [place] [address] Glucose [Mass/Vol] 313 mg/dL High 70-105 [facility] Comment on above: Order Comment: Waive d Testing in the ED is performed under the ED CLIA certificate #[id number]. Result Comment: [email or web address] [email or web address] Performed By: #### L [id number] ####[facility] ([facility])[address] [place] [address] Glucose [Mass/Vol] 164 mg/dL High 70-105 [facility] Comment on above: Order Comment: Waive d Testing in the ED is performed under the ED CLIA certificate #[id number]. Result Comment: [email or web address] [email or web address] Performed By: #### L [id number] ####[facility] ([facility])[address] [place] [address] 30on 08-24-2024 30 Normal [facility] ANTI-XA (HEPARIN LEVEL)on HEPARIN UNFRACTIONATED (U/ML) IN PPP BY CHROMOGENIC METHOD 0.21 IU/mL Low 0.3-0.7 [facility] Comment on above: Result Comment: Elysian roxaban and Apixaban will interfere with the anti Xa assay used to monitor UFH and LMWH. Performed By: #### L [id number] ####[facility] ([facility])[address] [place] [address] B-TYPE NATRIURETIC PEPTIDEon 08-24-2024 Natriuretic peptide B (Bld) [Mass/Vol] 143 pg/mL High 0-100 [facility] Comment on above: Performed By: #### L [id number] ####[facility] ([facility])[address] [place] [address] BASIC METABOLIC PANELon Anion gap [Moles/Vol] 11 mmol/L Normal 7-20 [facility] Comment on above: Performed By: #### L [id number] ####[facility] ([facility])[address] [place] [address] Calcium [Mass/Vol] 9.7 mg/dL Normal 8.6-10.3 [facility] Comment on above: Performed By: #### L [id number] ####[facility] ([facility])[address] [place] [address] Chloride [Moles/Vol] 98 mmol/L Normal 98-107 [facility] Comment on above: Performed By: #### L [id number] ####[facility] (BEAKER)[address] [place] [address] CO2 [Moles/Vol] 33 mmol/L High 21-31 [facility] Comment on above: Performed By: #### L [id number] ####[facility] ([facility])[address] [place] [address] Creatinine [Mass/Vol] 0.93 mg/dL Normal 0.70-1.30 [facility] Comment on above: Performed By: #### L [id number] ####[facility] ([facility])[address] [place] [address] GLOMERULAR FILTRATION RATE ML/MIN/1.73 SQ M.PREDICTED 91.1 mL/min/1.73m*2 Normal >60.0 [facility] Comment on above: Result Comment: The [facility]???s estimated glomerular filtration rate (eGFR) will no [...] L [id number] ####[facility] ([facility])[address] [place] [address] Glucose [Mass/Vol] 166 mg/dL High 70-100 [facility] Comment on above: Performed By: #### L [id number] ####[facility] ([facility])[address] [place] [address] Potassium [Moles/Vol] 3.8 mmol/L Normal 3.5-5.1 [facility] Comment on above: Performed By: #### L [id number] ####[facility] [facility] ([facility])[address] [place] [address] Sodium [Moles/Vol] 138 mmol/L Normal 136-145 [facility] Comment on above: Performed By: #### L [id number] ####[facility] ([facility])[address] [place] [address] Urea nitrogen [Mass/Vol] 23 mg/dL Normal 7-25 [facility] Comment on above: Performed By: #### L [id number] ####[facility] ([facility])[address] [place] [address] UREA NITROGEN/CREATININE (MASS RATIO) IN SER/PLAS 24.7 Normal [facility] Comment on above: Performed By: #### L [id number] ####[facility] ([facility])[address] [place] [address] Anion gap [Moles/Vol] 10 mmol/L Normal 7-20 [facility] Comment on above: Performed By: #### L [id number] ####[facility] (BEAKER)[address] [place] [address] Calcium [Mass/Vol] 9.4 mg/dL Normal 8.6-10.3 [facility] Comment on above: Performed By: #### L [id number] ####[facility] (BEAKER)[address] [place] [address] Chloride [Moles/Vol] 98 mmol/L Normal 98-107 [facility] Comment on above: Performed By: #### L [id number] ####[facility] (BE[facility]ER)[address] [place] [address] CO2 [Moles/Vol] 33 mmol/L High 21-31 [facility] Comment on above: Performed By: #### L [id number] ####[facility] (BEAKER)[address] [place] [address] Creatinine [Mass/Vol] 0.88 mg/dL Normal 0.70-1.30 [facility] Comment on above: Performed By: #### L [id number] ####[facility] (BE[facility]ER)[address] [place] [address] GLOMERULAR FILTRATION RATE ML/MIN/1.73 SQ M.PREDICTED 95.4 mL/min/1.73m*2 Normal >60.0 [facility] Comment on above: Result Comment: The [facility]???s estimated glomerular filtration rate (eGFR) will no [...] L [id number] ####[facility] ([facility])[address] [place] [address] Glucose [Mass/Vol] 132 mg/dL High 70-100 [facility] Comment on above: Performed By: #### L [id number] ####[facility] ([facility])[address] [place] [address] Potassium [Moles/Vol] 2.9 mmol/L Invalid Interpretation Code 3.5-5.1 [facility] Comment on above: Performed By: #### L [id number] ####[facility] ([facility])[address] [facility] [place] [address] Sodium [Moles/Vol] 138 mmol/L Normal 136-145 [facility] Comment on above: Performed By: #### L [id number] ####[facility] ([facility])[address] [facility] [place] [address] Urea nitrogen [Mass/Vol] 24 mg/dL Normal 7-25 [facility] Comment on above: Performed By: #### L [id number] ####[facility] ([facility])[address] [facility] [place] [address] UREA NITROGEN/CREATININE (MASS RATIO) IN SER/PLAS 27.3 Normal [facility] Comment on above: Performed By: #### L [id number] ####[facility] ([facility])[address] [facility] [place] [address] CBC WITH AUTO DIFFERENTIALon 08-24-2024 Basophils (Bld) [#/Vol] 0.06 10*3/uL Normal 0.00-0.20 [facility] Comment on above: Performed By: #### L [id number] ####[facility] ([facility])[address] [place] [address] Basophils/100 WBC (Bld) 0.8 % Normal 0.0-1.0 [facility] Comment on above: Performed By: #### L [id number] ####[facility] (BEAKER)[address] [place] [address] Eosinophils (Bld) [#/Vol] 0.46 10*3/uL Normal 0.00-0.50 [facility] Comment on above: Performed By: #### L [id number] ####[facility] (BEAKER)[address] [place] [address] Eosinophils/100 WBC (Bld) 5.9 % Normal 0.0-6.0 [facility] Comment on above: Performed By: #### L [id number] ####[facility] (BEAKER)[address] [place] [address] Erythrocyte distribution width (RBC) [Ratio] 14.7 % Normal 11.5-15.0 [facility] Comment on above: Performed By: #### L [id number] ####[facility] ([facility])[address] [place] [address] ERYTHROCYTE MEAN CORPUSCULAR HEMOGLOBIN CONCENTRATION (G/DL) BY AUTOMATED 31.3 g/dL Low 32.0-35.0 [facility] Comment on above: Performed By: #### L [id number] ####[facility] (BEAKER)[address] [place] [address] Hematocrit (Bld) [Volume fraction] 50.8 % Normal 39.0-55.0 [facility] Comment on above: Performed By: #### L [id number] ####[facility] (BEAKER)[address] [place] [address] Hemoglobin (Bld) [Mass/Vol] 15.9 g/dL Normal 13.0-17.0 [facility] Comment on above: Performed By: #### L [id number] ####[facility] ([facility])[address] [place] [address] Immature granulocytes (Bld) [#/Vol] 0.04 10*3/uL Normal 0.00-0.20 [facility] Comment on above: Performed By: #### L [id number] ####[facility] (BEAKER)[address] [place] [address] Immature granulocytes/100 WBC (Bld) 0.5 % Normal 0.0-1.0 [facility] Comment on above: Performed By: #### L [id number] ####[facility] (BEAKER)[address] [place] [address] Lymphocytes (Bld) [#/Vol] 1.23 10*3/uL Normal 1.20-4.00 [facility] Comment on above: Performed By: #### L [id number] ####[facility] (BEAKER)[address] [place] [address] Lymphocytes/100 WBC (Bld) 15.8 % Low 20.0-45.0 [facility] Comment on above: Performed By: #### L [id number] ####[facility] (BEAKER)[address] [place] [address] MCH (RBC) [Entitic mass] 29.1 pg Normal 27.0-33.0 [facility] Comment on above: Performed By: #### L [id number] ####[facility] (BEAKER)[address] [place] [address] MCV (RBC) [Entitic vol] 92.9 fL Normal 82.0-98.[address] [facility] Comment on above: Performed By: #### L [id number] ####[facility] (BEAKER)[address] [place] [address] Monocytes (Bld) [#/Vol] 0.96 10*3/uL Normal 0.10-1.00 [facility] Comment on above: Performed By: #### L [id number] ####[facility] (BEAKER)[address] [place] [address] Monocytes/100 WBC (Bld) 12.4 % High 5.0-12.0 [facility] Comment on above: Performed By: #### L [id number] ####[facility] ([facility])[address] [place] [address] Neutrophils (Bld) [#/Vol] 5.02 10*3/uL Normal 1.60-7.60 [facility] Comment on above: Performed By: #### L [id number] ####[facility] ([facility])[address] [place] [address] Neutrophils/100 WBC (Bld) 64.6 % Normal 40.0-72.0 [facility] Comment on above: Performed By: #### L [id number] ####[facility] ([facility])[address] [address] NRBC (PER 100 WBCS) BY AUTOMATED COUNT 0.0 % Normal 0 [facility] Comment on above: Performed By: #### L [id number] ####[facility] ([facility])[address] [address] PLATELETS (10*3/UL) IN BLOOD AUTOMATED COUNT 194 10*3/uL Normal 150-400 [facility] Comment on above: Performed By: #### L [id number] ####[facility] (BEAKER)[address] [place] [address] RBC (Bld) [#/Vol] 5.47 10*6/uL Normal 4.20-5.70 [facility] Comment on above: Performed By: #### L [id number] ####[facility] (BEAKER)[address] [place] [address] WBC (Bld) [#/Vol] 7.77 10*3/uL Normal 4.00-10.60 [facility] Comment on above: Performed By: #### L [id number] ####[facility] (BEAKER)[address] [place] [address] CONSULTon 08-24-2024 CONSULT Normal [facility] CT HEAD WO IV CONTRASTon CT HEAD WO IV CONTRAST Invalid Interpretation Code [facility] CTA CHEST W IV CONTRASTon CTA CHEST W IV CONTRAST [facility] MAGNESIUMon 08-24-2024 Magnesium [Mass/Vol] 1.7 mg/dL Low 1.9-2.7 [facility] Comment on above: Performed By: #### L [id number] ####[facility] ([facility])[address] [employer] [facility] [address] Magnesium [Mass/Vol] 1.4 mg/dL Low 1.9-2.7 [facility] Comment on above: Performed By: #### L [id number] ####[facility] ([employer])[address] [place] [address] NURSNOTEon 08-24-2024 NURSNOTE Normal [facility] NURSNOTE Normal [facility] PHOSPHORUSon 08-24-2024 Magnesium [Mass/Vol] 3.4 mg/dL Normal 2.5-5.0 [facility] Comment on above: Performed By: #### L [id number] ####[facility] ([facility])[address] [place] [address] POCT GLUCOSE METER UNSOLICIT ED RESULTSon 08-24-2024 Glucose [Mass/Vol] 182 mg/dL High 70-105 [facility] Comment on above: Order Comment: Waive d Testing in the ED is performed under the ED CLIA certificate #[id number]. Result Comment: droc kol Performed By: #### L [id number] ####[facility] ([employer])[address] [employer] [address] Glucose [Mass/Vol] 166 mg/dL High 70-105 [facility] Comment on above: Order Comment: Waive d Testing in the ED is performed under the ED CLIA certificate #[id number]. Result Comment: sbel cad Performed By: #### L [id number] ####[facility] (BEAKER)[address] [place] [address] Glucose [Mass/Vol] 150 mg/dL High 70-105 [facility] Comment on above: Order Comment: Waive d Testing in the ED is performed under the ED CLIA certificate #[id number]. Result Comment: besc obe Performed By: #### L [id number] ####[facility] (BEAKER)[address] [place] [address] Glucose [Mass/Vol] 136 mg/dL High 70-105 [facility] Comment on above: Order Comment: Waive d Testing in the ED is performed under the ED CLIA certificate #[id number]. Result Comment: swey [id number] Value Noted Performed By: #### L [id number] ####[facility] (BEAKER)[address] [place] [address] BASIC METABOLIC PANELon 02-0 Anion gap [Moles/Vol] 10 mmol/L Normal 7-20 [facility] Comment on above: Performed By: #### L [id number] ####[facility] (BEAKER)[address] [place] [address] Calcium [Mass/Vol] 9.8 mg/dL Normal 8.6-10.3 [facility] Comment on above: Performed By: #### L [id number] ####[facility] (BEAKER)[address] [place] [address] Chloride [Moles/Vol] 99 mmol/L Normal 98-107 [facility] Comment on above: Performed By: #### L [id number] ####[facility] ([facility])[address] [place] [address] CO2 [Moles/Vol] 33 mmol/L High 21-31 [facility] Comment on above: Performed By: #### L [id number] ####[facility] ([facility]ER)[address] [place] [address] Creatinine [Mass/Vol] 0.94 mg/dL Normal 0.70-1.30 [facility] Comment on above: Performed By: #### L [id number] ####[facility] ([facility])[address] [place] [address] GLOMERULAR FILTRATION RATE ML/MIN/1.73 SQ M.PREDICTED 90.0 mL/min/1.73m*2 Normal >60.0 [facility] Comment on above: Result Comment: The [facility]???s estimated glomerular filtration rate (eGFR) will no [...] L [id number] ####[facility] ([facility])[address] [place] [address] Glucose [Mass/Vol] 274 mg/dL High 70-100 [facility] Comment on above: Performed By: #### L [id number] ####[facility] ([facility])[address] [place] [address] Potassium [Moles/Vol] 3.8 mmol/L Normal 3.5-5.1 [facility] Comment on above: Performed By: #### L [id number] ####[facility] ([facility])[address] [place] [address] Sodium [Moles/Vol] 138 mmol/L Normal 136-145 [facility] Comment on above: Performed By: #### L [id number] ####[facility] ([facility])[address] [place] [address] Urea nitrogen [Mass/Vol] 31 mg/dL High 7-25 [facility] Comment on above: Performed By: #### L [id number] ####[facility] ([facility])[address] [place] [address] UREA NITROGEN/CREATININE (MASS RATIO) IN SER/PLAS 33.0 Normal [facility] Comment on above: Performed By: #### L [id number] ####[facility] (BEAKER)[address] [place] [address] CBC WITH AUTO DIFFERENTIALon 08-23-2024 Basophils (Bld) [#/Vol] 0.06 10*3/uL Normal 0.00-0.20 [facility] Comment on above: Performed By: #### L [id number] ####[facility] ([facility])[address] [place] [address] Basophils/100 WBC (Bld) 0.9 % Normal 0.0-1.0 [facility] Comment on above: Performed By: #### L [id number] ####[facility] ([facility])[address] [place] [address] Eosinophils (Bld) [#/Vol] 0.34 10*3/uL Normal 0.00-0.50 [facility] Comment on above: Performed By: #### L [id number] ####[facility] (BEAKER)[address] [place] [address] Eosinophils/100 WBC (Bld) 4.8 % Normal 0.0-6.0 [facility] Comment on above: Performed By: #### L [id number] ####[facility] (BEAKER)[address] [place] [address] Erythrocyte distribution width (RBC) [Ratio] 14.7 % Normal 11.5-15.0 [facility] Comment on above: Performed By: #### L [id number] ####[facility] (BEAKER)[address] [place] [address] ERYTHROCYTE MEAN CORPUSCULAR HEMOGLOBIN CONCENTRATION (G/DL) BY AUTOMATED 31.8 g/dL Low 32.0-35.0 [facility] Comment on above: Performed By: #### L [id number] ####[facility] (BEAKER)[address] [place] [address] Hematocrit (Bld) [Volume fraction] 52.5 % Normal 39.0-55.0 [facility] Comment on above: Performed By: #### L [id number] ####[facility] ([facility]ER)[address] [place] [address] Hemoglobin (Bld) [Mass/Vol] 16.7 g/dL Normal 13.0-17.0 [facility] Comment on above: Performed By: #### L [id number] ####[facility] (BEAKER)[address] [place] [address] Immature granulocytes (Bld) [#/Vol] 0.05 10*3/uL Normal 0.00-0.20 [facility] Comment on above: Performed By: #### L [id number] ####[facility] (BEAKER)[address] [place] [address] Immature granulocytes/100 WBC (Bld) 0.7 % Normal 0.0-1.0 [facility] Comment on above: Performed By: #### L [id number] ####[facility] (BEAKER)[address] [place] [address] Lymphocytes (Bld) [#/Vol] 1.15 10*3/uL Low 1.20-4.00 [facility] Comment on above: Performed By: #### L [id number] ####[facility] (BEAKER)[address] [place] [address] Lymphocytes/100 WBC (Bld) 16.4 % Low 20.0-45.0 [facility] Comment on above: Performed By: #### L [id number] ####[facility] (BEAKER)[address] [place] [address] MCH (RBC) [Entitic mass] 29.0 pg Normal 27.0-33.0 [facility] Comment on above: Performed By: #### L [id number] ####[facility] (BEAKER)[address] [place] [address] MCV (RBC) [Entitic vol] 91.1 fL Normal 82.0-98.0 [facility] Comment on above: Performed By: #### L [id number] ####[facility] ([facility])[address] [place] [address] Monocytes (Bld) [#/Vol] 0.85 10*3/uL Normal 0.10-1.00 [facility] Comment on above: Performed By: #### L [id number] ####[facility] ([facility])[address] [address] Monocytes/100 WBC (Bld) 12.1 % High 5.0-12.[address] [facility] Comment on above: Performed By: #### L [id number] ####[facility] ([facility])[address] [place] [address] Neutrophils (Bld) [#/Vol] 4.58 10*3/uL Normal 1.60-7.60 [facility] Comment on above: Performed By: #### L [id number] ####[facility] ([facility])[address] [place] [address] Neutrophils/100 WBC (Bld) 65.1 % Normal 40.0-72.0 [facility] Comment on above: Performed By: #### L [id number] ####[facility] ([facility])[address] [place] [address] NRBC (PER 100 WBCS) BY AUTOMATED COUNT 0.0 % Normal 0 [facility] Comment on above: Performed By: #### L [id number] ####[facility] ([facility])[address] [place] [address] PLATELETS (10*3/UL) IN BLOOD AUTOMATED COUNT 190 10*3/uL Normal 150-400 [facility] Comment on above: Performed By: #### L [id number] ####[facility] ([facility])[address] [address] RBC (Bld) [#/Vol] 5.76 10*6/uL High 4.20-5.70 [facility] Comment on above: Performed By: #### L [id number] ####[facility] (BEAKER)[address] [facility] [address] WBC (Bld) [#/Vol] 7.03 10*3/uL Normal 4.00-10.60 [facility] Comment on above: Performed By: #### L [id number] ####[facility] (BEAKER)[address] [place] [address] CONSULTon 08-23-2024 CONSULT Normal [facility] LIPID PANELon 08-23-2024 CHOL/HDL 7.8 mg/dL Normal [facility] Comment on above: Performed By: #### L [id number] ####[facility] ([facility])[address] [facility] [place] [address] Cholesterol [Mass/Vol] 195 mg/dL Normal 120-200 [facility] Comment on above: Performed By: #### L [id number] ####[facility] (BEAKER)[address] [place] [address] Magnesium [Mass/Vol] 177 mg/dL High 40-149 [facility] Comment on above: Result Comment: TRIG LYCERIDE REFERENCE RANGE:20 YEARS AND OLDER CARDIOVASCULAR RISKLESS THAN 150 mg/dL LOW [id number] TO 199 mg/dL BORDERLINE [id number] mg/dL AND GREATER HIGH RISK Performed By: #### L [id number] ####[facility] (BEAKER)[address] [facility] [place] [address] Magnesium [Mass/Vol] 135 mg/dL Normal 0-160 [facility] Comment on above: Performed By: #### L [id number] ####[facility] (BEAKER)[address] [facility] [place] [address] Magnesium [Mass/Vol] 25 mg/dL Normal 23-92 [facility] Comment on above: Performed By: #### L [id number] ####[facility] (BEAKER)[address] [facility] [address] NON HDL CHOL. (LDL+VLDL) 170 Normal [facility] Comment on above: Performed By: #### L [id number] ####[facility] ([facility])[address] [place] [address] TOTAL VLDL-C 35 mg/dL Normal 0-40 [facility] Comment on above: Performed By: #### L [id number] ####[facility] ([facility])[address] [place] [address] POCT GLUCOSE METER UNSOLICIT ED RESULTSon 08-23-2024 Glucose [Mass/Vol] 169 mg/dL High 70-105 [facility] Comment on above: Order Comment: Waive d Testing in the ED is performed under the ED CLIA certificate #[id number]. Result Comment: enoch tti Performed By: #### L [id number] ####[facility] ([facility])[address] [place] [address] Glucose [Mass/Vol] 183 mg/dL High 70-105 [facility] Comment on above: Order Comment: Waive d Testing in the ED is performed under the ED CLIA certificate #[id number]. Result Comment: ezab ors2 Performed By: #### L [id number] ####[facility] ([facility])[address] [place] [address] Glucose [Mass/Vol] 283 mg/dL High 70-105 [facility] Comment on above: Order Comment: Waive d Testing in the ED is performed under the ED CLIA certificate #[id number]. Result Comment: ezab ors2 Performed By: #### L [id number] ####[facility] ([facility])[address] [place] [address] Glucose [Mass/Vol] 258 mg/dL High 70-105 [facility] Comment on above: Order Comment: Waive d Testing in the ED is performed under the ED CLIA certificate #[id number]. Result Comment: tful [email or web address] Performed By: #### L [id number] ####[facility] ([facility])[address] [place] [address] 30on 08-22-2024 30 Normal [facility] ANTI-XA (HEPARIN LEVEL)on HEPARIN UNFRACTIONATED (U/ML) IN PPP BY CHROMOGENIC METHOD 0.31 IU/mL Normal 0.3-0.7 [facility] Comment on above: Result Comment: Tatyana roxaban and Apixaban will interfere with the anti Xa assay used to monitor UFH and LMWH. Performed By: #### L [id number] ####[facility] ([facility])[address] [place] [address] BASIC METABOLIC PANELon Anion gap [Moles/Vol] 10 mmol/L Normal 7-20 [facility] Comment on above: Performed By: #### L [id number] ####[facility] ([facility])[address] [place] [address] Calcium [Mass/Vol] 9.6 mg/dL Normal 8.6-10.3 [facility] Comment on above: Performed By: #### L [id number] ####[facility] ([facility])[address] [place] [address] Chloride [Moles/Vol] 102 mmol/L Normal 98-107 [facility] Comment on above: Performed By: #### L [id number] ####[facility] ([facility])[address] [place] [address] CO2 [Moles/Vol] 32 mmol/L High 21-31 [facility] Comment on above: Performed By: #### L [id number] ####[facility] ([facility])[address] [place] [address] Creatinine [Mass/Vol] 1.01 mg/dL Normal 0.70-1.30 [facility] Comment on above: Performed By: #### L [id number] ####[facility] ([facility])[address] [place] [address] GLOMERULAR FILTRATION RATE ML/MIN/1.73 SQ M.PREDICTED 82.5 mL/min/1.73m*2 Normal >60.0 [facility] Comment on above: Result Comment: The [facility]???s estimated glomerular filtration rate (eGFR) will no [...] L [id number] ####[facility] ([facility])[address] [place] [address] Glucose [Mass/Vol] 263 mg/dL High 70-100 [facility] Comment on above: Performed By: #### L [id number] ####[facility] ([facility])[address] [place] [address] Potassium [Moles/Vol] 3.7 mmol/L Normal 3.5-5.1 [facility] Comment on above: Performed By: #### L [id number] ####[facility] ([facility])[address] [place] [address] Sodium [Moles/Vol] 140 mmol/L Normal 136-145 [facility] Comment on above: Performed By: #### L [id number] ####[facility] ([facility])[address] [place] [address] Urea nitrogen [Mass/Vol] 33 mg/dL High 7-25 [facility] Comment on above: Performed By: #### L [id number] ####[facility] [facility] ([facility])[address] [place] [address] UREA NITROGEN/CREATININE (MASS RATIO) IN SER/PLAS 32.7 Normal [facility] Comment on above: Performed By: #### L [id number] ####[facility] ([facility])[address] [place] [address] CBC WITH AUTO DIFFERENTIALon 08-22-2024 Basophils (Bld) [#/Vol] 0.05 10*3/uL Normal 0.00-0.20 [facility] Comment on above: Performed By: #### L [id number] ####[facility] ([facility])[address] [place] [address] Basophils/100 WBC (Bld) 0.5 % Normal 0.0-1.0 [facility] Comment on above: Performed By: #### L [id number] ####[facility] ([facility])[address] [place] [address] Eosinophils (Bld) [#/Vol] 0.36 10*3/uL Normal 0.00-0.50 [facility] Comment on above: Performed By: #### L [id number] ####[facility] ([facility])[address] [place] [address] Eosinophils/100 WBC (Bld) 3.9 % Normal 0.0-6.0 [facility] Comment on above: Performed By: #### L [id number] ####[facility] ([facility])[address] [place] [address] Erythrocyte distribution width (RBC) [Ratio] 14.7 % Normal 11.5-15.0 [facility] Comment on above: Performed By: #### L [id number] ####[facility] ([facility])[address] [place] [address] ERYTHROCYTE MEAN CORPUSCULAR HEMOGLOBIN CONCENTRATION (G/DL) BY AUTOMATED 30.8 g/dL Low 32.0-35.0 [facility] Comment on above: Performed By: #### L [id number] ####[facility] ([facility])[address] [place] [address] Hematocrit (Bld) [Volume fraction] 52.9 % Normal 39.0-55.0 [facility] Comment on above: Performed By: #### L [id number] ####[facility] ([facility])[address] [place] [address] Hemoglobin (Bld) [Mass/Vol] 16.3 g/dL Normal 13.0-17.0 [facility] Comment on above: Performed By: #### L [id number] ####[facility] ([facility])[address] [place] [address] Immature granulocytes (Bld) [#/Vol] 0.07 10*3/uL Normal 0.00-0.20 [facility] Comment on above: Performed By: #### L [id number] ####[facility] ([facility])[address] [place] [address] Immature granulocytes/100 WBC (Bld) 0.7 % Normal 0.0-1.0 [facility] Comment on above: Performed By: #### L [id number] ####[facility] ([facility])[address] [place] [address] Lymphocytes (Bld) [#/Vol] 1.16 10*3/uL Low 1.20-4.00 [facility] Comment on above: Performed By: #### L [id number] ####[facility] ([facility])[address] [place] [address] Lymphocytes/100 WBC (Bld) 12.4 % Low 20.0-45.0 [facility] Comment on above: Performed By: #### L [id number] ####[facility] ([facility])[address] [place] [address] MCH (RBC) [Entitic mass] 28.8 pg Normal 27.0-33.0 [facility] Comment on above: Performed By: #### L [id number] ####[facility] ([facility])[address] [place] [address] MCV (RBC) [Entitic vol] 93.5 fL Normal 82.0-98.[address] [facility] Comment on above: Performed By: #### L [id number] ####[facility] ([facility])[address] [place] [address] Monocytes (Bld) [#/Vol] 1.21 10*3/uL High 0.10-1.00 [facility] Comment on above: Performed By: #### L [id number] ####[facility] ([facility])[address] [place] [address] Monocytes/100 WBC (Bld) 12.9 % High 5.0-12.0 [facility] Comment on above: Performed By: #### L [id number] ####[facility] ([facility])[address] [place] [address] Neutrophils (Bld) [#/Vol] 6.50 10*3/uL Normal 1.60-7.60 [facility] Comment on above: Performed By: #### L [id number] ####[facility] ([facility])[address] [place] [address] Neutrophils/100 WBC (Bld) 69.6 % Normal 40.0-72.0 [facility] Comment on above: Performed By: #### L [id number] ####[facility] ([facility])[address] [place] [address] NRBC (PER 100 WBCS) BY AUTOMATED COUNT 0.0 % Normal 0 [facility] Comment on above: Performed By: #### L [id number] ####[facility] ([facility])[address] [place] [address] PLATELETS (10*3/UL) IN BLOOD AUTOMATED COUNT 187 10*3/uL Normal 150-400 [facility] Comment on above: Performed By: #### L [id number] ####[facility] ([facility])[address] [place] [address] RBC (Bld) [#/Vol] 5.66 10*6/uL Normal 4.20-5.70 [facility] Comment on above: Performed By: #### L [id number] ####[facility] ([facility])[address] [place] [address] WBC (Bld) [#/Vol] 9.35 10*3/uL Normal 4.00-10.60 [facility] Comment on above: Performed By: #### L [id number] ####[facility] ([facility])[address] [place] [address] POCT GLUCOSE METER UNSOLICIT ED RESULTSon 08-22-2024 Glucose [Mass/Vol] 256 mg/dL High 70-105 [facility] Comment on above: Order Comment: Waive d Testing in the ED is performed under the ED CLIA certificate #[id number]. Result Comment: ezab ors2 Performed By: #### L [id number] ####[facility] ([facility]ER)[address] [place] [address] Glucose [Mass/Vol] 277 mg/dL High 70-105 [facility] Comment on above: Order Comment: Waive d Testing in the ED is performed under the ED CLIA certificate #[id number]. Result Comment: ezab ors2 Performed By: #### L [id number] ####[facility] ([facility]ER)[address] [place] [address] ANTI-XA (HEPARIN LEVEL)on HEPARIN UNFRACTIONATED (U/ML) IN PPP BY CHROMOGENIC METHOD 0.30 IU/mL Normal 0.3-0.7 [facility] Comment on above: Result Comment: Elysian roxaban and Apixaban will interfere with the anti Xa assay used to monitor UFH and LMWH. Performed By: #### L [id number] ####[facility] ([facility]ER)[address] [place] [address] ARTERIAL BLOOD GAS WITH CO-O XIMETRYon 08-21-2024 Base excess Calc (Bld) [Moles/Vol] 6.7 mmol/L High -2.0-3.0 [facility] Comment on above: Performed By: #### L [id number] ####[facility] [id number] [place] [address] [place] CARBOXYHEMOGLOBIN/HEMOGL OBIN TOTAL % IN BLOOD 2.0 % Normal 0.0-3.0 [facility] Comment on above: Performed By: #### L [id number] ####[facility] [id number] [place] [address] [place] CO2 (Bld) [Partial pressure] 43 mm[Hg] Normal 35-48 [facility] Comment on above: Performed By: #### L [id number] ####[facility] [id number] [place] [address] [place] DEOXYGENATED HEMOGLOBIN IN BLOOD 4.9 % Normal 1-5 [facility] Comment on above: Performed By: #### L [id number] ####[facility] [id number] [place] [address] [place] FIO2 50 % Normal [facility] Comment on above: Performed By: #### L [id number] ####[facility] [id number] [place] [address] [place] HCO3 (Bld) [Moles/Vol] 31.3 mmol/L High 21.0-28.0 [facility] Comment on above: Performed By: #### L [id number] ####[facility] [id number] [place] [address] [place] Hemoglobin (Bld) [Mass/Vol] 16.5 g/dL Normal 11.7-17.4 [facility] Comment on above: Performed By: #### L [id number] ####[facility] [id number] [place] [address] [place] METHEMOGLOBIN/100 IN BLOOD 0.7 % Normal 0.0-1.5 [facility] Comment on above: Performed By: #### L [id number] ####[facility] [id number] [place] [address] [place] Oxygen (Bld) [Partial pressure] 68 mm[Hg] Low 83-100 [facility] Comment on above: Performed By: #### L [id number] ####[facility] [id number] [place] [address] [place] OXYGEN SATURATION (%) IN ARTERIAL BLOOD 95.0 % Normal 94.0-98.0 [facility] Comment on above: Performed By: #### L [id number] ####[facility] [id number] [place] [address] [place] OXYGENATED HEMOGLOBIN IN BLOOD 92.4 % Normal 90.0-95.0 [facility] Comment on above: Performed By: #### L [id number] ####[facility] [id number] [place] [address] [place] pH (Bld) 7.47 [pH] High 7.35-7.45 [facility] Comment on above: Performed By: #### L [id number] ####[facility] [id number] [place] [address] [facility] SOURCE OF OXYGEN Bi-PAP Normal [facility] [place] [facility] Comment on above: Performed By: #### L [id number] ####[facility] [id number] [place] [address] [facility] Base excess Calc (Bld) [Moles/Vol] 5.1 mmol/L High -2.0-3.0 [facility] Comment on above: Performed By: #### L [id number] ####[facility] [id number] [place] [address] [facility] CARBOXYHEMOGLOBIN/HEMOGL OBIN TOTAL % IN BLOOD 1.9 % Normal 0.0-3.0 [facility] Comment on above: Performed By: #### L [id number] ####[facility] [id number] [place] [place] [address] [facility] CO2 (Bld) [Partial pressure] 46 mm[Hg] Normal 35-48 [facility] Comment on above: Performed By: #### L [id number] ####[facility] [id number] [place] [address] [facility] DEOXYGENATED HEMOGLOBIN IN BLOOD 15.8 % Critically high 1-5 [facility] Comment on above: Performed By: #### L [id number] ####[facility] [id number] [place] [address] [place] HCO3 (Bld) [Moles/Vol] 30.5 mmol/L High 21.0-28.0 [facility] Comment on above: Performed By: #### L [id number] ####[facility] [id number] [place] [place] [address] [place] Hemoglobin (Bld) [Mass/Vol] 16.4 g/dL Normal 11.7-17.4 [facility] Comment on above: Performed By: #### L [id number] ####[facility] [id number] [place] [address] [place] LPM 15 Normal [facility] Comment on above: Performed By: #### L [id number] ####[facility] [id number] [place] [address] [facility] METHEMOGLOBIN/100 IN BLOOD 0.6 % Normal 0.0-1.5 [facility] Comment on above: Performed By: #### L [id number] ####[facility] [id number] [place] [place] [address] [facility] Oxygen (Bld) [Partial pressure] 53 mm[Hg] Invalid Interpretation Code 83-100 [facility] Comment on above: Performed By: #### L [id number] ####[facility] [id number] [place] [address] [facility] OXYGEN SATURATION (%) IN ARTERIAL BLOOD 83.8 % Invalid Interpretation Code 94.0-98.0 [facility] Comment on above: Performed By: #### L [id number] ####[facility] [id number] [place] [address] [place] OXYGENATED HEMOGLOBIN IN BLOOD 81.7 % Invalid Interpretation Code 90.0-95.0 [facility] Comment on above: Performed By: #### L [id number] ####[facility] [id number] [place] [address] [facility] pH (Bld) 7.43 [pH] Normal 7.35-7.45 [facility] Comment on above: Performed By: #### L [id number] ####[facility] [id number] [place] [address] [facility] SOURCE OF OXYGEN SALTER [facility] Comment on above: Performed By: #### L [id number] ####[facility] [id number] [place] [address] [facility] ARTERIAL BLOOD GAS WITH IONI ZED CALCIUMon 08-21-2024 Base excess Calc (Bld) [Moles/Vol] 6.2 mmol/L High -2.0-3.0 [facility] Comment on above: Performed By: #### L [id number] ####[facility] [id number] [address] CALCIUM IONIZED (MMOL/L) IN BLOOD 1.30 mmol/L Normal 1.15-1.33 [facility] Comment on above: Performed By: #### L [id number] ####[facility] [id number] [place] [address] [facility] CO2 (Bld) [Partial pressure] 45 mm[Hg] Normal 35-48 [facility] Comment on above: Performed By: #### L [id number] ####[facility] [id number] [place] [address] [facility] FIO2 50 % Normal [facility] Comment on above: Performed By: #### L [id number] ####[facility] [id number] [address] HCO3 (Bld) [Moles/Vol] 31.3 mmol/L High 21.0-28.[address] [facility] Comment on above: Performed By: #### L [id number] ####[facility] [id number] [place] [address] [facility] Oxygen (Bld) [Partial pressure] 70 mm[Hg] Low 83-100 [facility] Comment on above: Performed By: #### L [id number] ####[facility] [id number] [place] [address] [facility] OXYGEN SATURATION (%) IN ARTERIAL BLOOD 94.9 % Normal 94.0-98.0 [facility] Comment on above: Performed By: #### L [id number] ####[facility] [id number] [place] [address] [place] PEEP 8 cmH2O Normal [facility] Comment on above: Performed By: #### L [id number] ####[facility] [id number] [place] [address] [facility] pH (Bld) 7.45 [pH] Normal 7.35-7.45 [facility] Comment on above: Performed By: #### L [id number] ####[facility] [id number] [place] [address] [place] PRESSURE SUPPORT 14 Normal [facility] Comment on above: Performed By: #### L [id number] ####[facility] [id number] [place] [address] [place] SOURCE OF OXYGEN Bi-PAP Normal [facility] Comment on above: Performed By: #### L [id number] ####[facility] [id number] [place] [address] [facility] BASIC METABOLIC PANELon 02-0 Anion gap [Moles/Vol] 11 mmol/L Normal 7-20 [facility] Comment on above: Performed By: #### L [id number] ####[facility] ([facility]ER)[address] [place] [address] Calcium [Mass/Vol] 9.4 mg/dL Normal 8.6-10.3 [facility] Comment on above: Performed By: #### L [id number] ####[facility] ([facility])[address] [place] [address] Chloride [Moles/Vol] 101 mmol/L Normal 98-107 [facility] Comment on above: Performed By: #### L [id number] ####[facility] ([facility]ER)[address] [place] [address] CO2 [Moles/Vol] 30 mmol/L Normal 21-31 [facility] Comment on above: Performed By: #### L [id number] ####[facility] ([facility])[address] [place] [address] Creatinine [Mass/Vol] 1.05 mg/dL Normal 0.70-1.30 [facility] Comment on above: Performed By: #### L [id number] ####[facility] ([facility])[address] [place] [address] GLOMERULAR FILTRATION RATE ML/MIN/1.73 SQ M.PREDICTED 78.8 mL/min/1.73m*2 Normal >60.0 [facility] Comment on above: Result Comment: The [facility]???s estimated glomerular filtration rate (eGFR) will no [...] L [id number] ####[facility] ([facility])[address] [place] [address] Glucose [Mass/Vol] 269 mg/dL High 70-100 [facility] Comment on above: Performed By: #### L [id number] ####[facility] ([facility])[address] [place] [address] Potassium [Moles/Vol] 4.0 mmol/L Normal 3.5-5.1 [facility] Comment on above: Performed By: #### L [id number] ####[facility] ([facility])[address] [place] [address] Sodium [Moles/Vol] 138 mmol/L Normal 136-145 [facility] Comment on above: Performed By: #### L [id number] ####[facility] ([facility])[address] [place] [address] Urea nitrogen [Mass/Vol] 35 mg/dL High 7-25 [facility] Comment on above: Performed By: #### L [id number] ####[facility] ([facility])[address] [place] [address] UREA NITROGEN/CREATININE (MASS RATIO) IN SER/PLAS 33.3 Normal [facility] Comment on above: Performed By: #### L [id number] ####[facility] ([facility])[address] [place] [address] CALCIUM, IONIZEDon CALCIUM IONIZED (MMOL/L) IN BLOOD 1.29 mmol/L Normal 1.15-1.33 [facility] Comment on above: Performed By: #### C ALCIUM, IONIZED ####[facility] [id number] [place] [address] [place] CBC WITH AUTO DIFFERENTIALon 08-21-2024 Basophils (Bld) [#/Vol] 0.05 10*3/uL Normal 0.00-0.20 [facility] Comment on above: Performed By: #### L [id number] ####[facility] ([facility]ER)[address] [place] [address] Basophils/100 WBC (Bld) 0.6 % Normal 0.0-1.0 [facility] Comment on above: Performed By: #### L [id number] ####[facility] ([facility]ER)[address] [place] [address] Eosinophils (Bld) [#/Vol] 0.43 10*3/uL Normal 0.00-0.50 [facility] Comment on above: Performed By: #### L [id number] ####[facility] ([facility]ER)[address] [place] [address] Eosinophils/100 WBC (Bld) 5.2 % Normal 0.0-6.0 [facility] Comment on above: Performed By: #### L [id number] ####[facility] ([facility]ER)[address] [place] [address] Erythrocyte distribution width (RBC) [Ratio] 14.8 % Normal 11.5-15.0 [facility] Comment on above: Performed By: #### L [id number] ####[facility] (BEAKER)[address] [place] [address] ERYTHROCYTE MEAN CORPUSCULAR HEMOGLOBIN CONCENTRATION (G/DL) BY AUTOMATED 31.1 g/dL Low 32.0-35.0 [facility] Comment on above: Performed By: #### L [id number] ####[facility] ([facility]ER)[address] [place] [address] Hematocrit (Bld) [Volume fraction] 52.1 % Normal 39.0-55.0 [facility] Comment on above: Performed By: #### L [id number] ####[facility] (BEAKER)[address] [place] [address] Hemoglobin (Bld) [Mass/Vol] 16.2 g/dL Normal 13.0-17.0 [facility] Comment on above: Performed By: #### L [id number] ####[facility] (BEAKER)[address] [place] [address] Immature granulocytes (Bld) [#/Vol] 0.06 10*3/uL Normal 0.00-0.20 [facility] Comment on above: Performed By: #### L [id number] ####[facility] (BEAKER)[address] [place] [address] Immature granulocytes/100 WBC (Bld) 0.7 % Normal 0.0-1.0 [facility] Comment on above: Performed By: #### L [id number] ####[facility] (BEAKER)[address] [place] [address] Lymphocytes (Bld) [#/Vol] 1.10 10*3/uL Low 1.20-4.00 [facility] Comment on above: Performed By: #### L [id number] ####[facility] (BEAKER)[address] [place] [address] Lymphocytes/100 WBC (Bld) 13.3 % Low 20.0-45.0 [facility] Comment on above: Performed By: #### L [id number] ####[facility] (BEAKER)[address] [place] [address] MCH (RBC) [Entitic mass] 29.1 pg Normal 27.0-33.0 [facility] Comment on above: Performed By: #### L [id number] ####[facility] (BEAKER)[address] [place] [address] MCV (RBC) [Entitic vol] 93.7 fL Normal 82.0-98.[address] [facility] Comment on above: Performed By: #### L [id number] ####[facility] ([facility]ER)[address] [place] [address] Monocytes (Bld) [#/Vol] 0.92 10*3/uL Normal 0.10-1.00 [facility] Comment on above: Performed By: #### L [id number] ####[facility] ([facility])[address] [place] [address] Monocytes/100 WBC (Bld) 11.1 % Normal 5.0-12.[address] [facility] Comment on above: Performed By: #### L [id number] ####[facility] ([facility])[address] [place] [address] Neutrophils (Bld) [#/Vol] 5.72 10*3/uL Normal 1.60-7.60 [facility] Comment on above: Performed By: #### L [id number] ####[facility] ([facility])[address] [place] [address] Neutrophils/100 WBC (Bld) 69.1 % Normal 40.0-72.0 [facility] Comment on above: Performed By: #### L [id number] ####[facility] ([facility])[address] [place] [address] NRBC (PER 100 WBCS) BY AUTOMATED COUNT 0.0 % Normal 0 [facility] Comment on above: Performed By: #### L [id number] ####[facility] ([facility])[address] [place] [address] PLATELETS (10*3/UL) IN BLOOD AUTOMATED COUNT 199 10*3/uL Normal 150-400 [facility] Comment on above: Performed By: #### L [id number] ####[facility] (BEAKER)[address] [place] [address] RBC (Bld) [#/Vol] 5.56 10*6/uL Normal 4.20-5.70 [facility] Comment on above: Performed By: #### L [id number] ####[facility] ([facility])[address] [place] [address] WBC (Bld) [#/Vol] 8.28 10*3/uL Normal 4.00-10.60 [facility] Comment on above: Performed By: #### L [id number] ####[facility] ([facility])[address] [place] [address] CT BRAIN PERFUSIONon 025 CT BRAIN PERFUSION Invalid Interpretation Code [facility] CT HEAD WO IV CONTRASTon CT HEAD WO IV CONTRAST [facility] W IV [facility]on [facility]A HEAD W IV CONTRAST [facility] NECK W IV CONTRASTon CTA NECK W IV [facility]24 Magnesium [Mass/Vol] 1.8 mg/dL Low 1.9-2.7 [facility] Comment on above: Performed By: #### L [id number] ####[facility] ([facility])[address] [place] [address] MRSA/MSSA DNA NASALon 2024 MRSA DNA Positive Abnormal Negative [facility] Comment on above: Order Comment: Testi ng [...] preclude nasal colonization. Performed By: #### L [id number] ####[facility] ([facility])[address] [place] [address] MSSA DNA Negative Normal Negative [facility] Comment on above: Order Comment: Testi ng [...] preclude nasal colonization. Performed By: #### L [id number] ####[facility] ([facility])[address] [facility] [place] [address] PHOSPHORUSon 08-21-2024 Magnesium [Mass/Vol] 2.5 mg/dL Normal 2.5-5.0 [facility] Comment on above: Performed By: #### L [id number] ####[facility] ([facility])[address] [facility] [place] [address] POCT GLUCOSE METER UNSOLICIT ED RESULTSon 08-21-2024 Glucose [Mass/Vol] 230 mg/dL High 70-105 [facility] Comment on above: Order Comment: Waive d Testing in the ED is performed under the ED CLIA certificate #[id number]. Result Comment: rbar ero Performed By: #### L [id number] ####[facility] ([facility])[address] [facility] [place] [address] Glucose [Mass/Vol] 226 mg/dL High 70-105 [facility] Comment on above: Order Comment: Waive d Testing in the ED is performed under the ED CLIA certificate #[id number]. Result Comment: [email or web address] Performed By: #### L [id number] ####[facility] ([facility])[address] [facility] [place] [address] Glucose [Mass/Vol] 229 mg/dL High 70-105 [facility] Comment on above: Order Comment: Waive d Testing in the ED is performed under the ED CLIA certificate #[id number]. Result Comment: [email or web address] Performed By: #### L [id number] ####[facility] ([facility])[address] [facility] [address] Glucose [Mass/Vol] 234 mg/dL High 70-105 [facility] Comment on above: Order Comment: Waive d Testing in the ED is performed under the ED CLIA certificate #[id number]. Result Comment: [email or web address] Performed By: #### L [id number] ####[facility] ([facility])[address] [facility] [place] [address] POTASSIUM, WHOLE BLOODon Potassium [Moles/Vol] 3.3 mmol/L Low 3.5-5.1 [facility] Comment on above: Performed By: #### P OTASSIUM, WHOLE BLOOD ####[facility] [id number] [place] [address] [facility] SODIUM, WHOLE BLOODon 2024 SODIUM, WHOLE BLOOD 137 Normal 136-145 [facility] Comment on above: Performed By: #### S ODIUM, WHOLE BLOOD ####[facility] [id number] [place] [address] [facility] 30on 08-20-2024 30 Normal [facility] ANTI-XA (HEPARIN LEVEL)on HEPARIN UNFRACTIONATED (U/ML) IN PPP BY CHROMOGENIC METHOD 0.30 IU/mL Normal 0.3-0.7 [facility] Comment on above: Result Comment: Tatyana roxaban and Apixaban will interfere with the anti Xa assay used to monitor UFH and LMWH. Performed By: #### L [id number] ####[facility] ([facility])[address] [place] [address] BASIC METABOLIC PANELon 07-23 Anion gap [Moles/Vol] 8 mmol/L Normal 7-20 [facility] Comment on above: Performed By: #### L [id number] ####[facility] ([facility])[address] [place] [address] Calcium [Mass/Vol] 9.4 mg/dL Normal 8.6-10.3 [facility] Comment on above: Performed By: #### L [id number] ####[facility] ([facility])[address] [place] [address] Chloride [Moles/Vol] 99 mmol/L Normal 98-107 [facility] Comment on above: Performed By: #### L [id number] ####[facility] ([facility])[address] [place] [address] CO2 [Moles/Vol] 34 mmol/L High 21-31 [facility] Comment on above: Performed By: #### L [id number] ####[facility] ([facility])[address] [place] [address] Creatinine [Mass/Vol] 0.97 mg/dL Normal 0.70-1.30 [facility] Comment on above: Performed By: #### L [id number] ####[facility] ([facility])[address] [place] [address] GLOMERULAR FILTRATION RATE ML/MIN/1.73 SQ M.PREDICTED 86.6 mL/min/1.73m*2 Normal >60.0 [facility] Comment on above: Result Comment: The [facility]???s estimated glomerular filtration rate (eGFR) will no [...] L [id number] ####[facility] ([facility])[address] [place] [address] Glucose [Mass/Vol] 267 mg/dL High 70-100 [facility] Comment on above: Performed By: #### L [id number] ####[facility] ([facility])[address] [place] [address] Potassium [Moles/Vol] 3.9 mmol/L Normal 3.5-5.1 [facility] Comment on above: Performed By: #### L [id number] ####[facility] ([facility])[address] [place] [address] Sodium [Moles/Vol] 137 mmol/L Normal 136-145 [facility] Comment on above: Performed By: #### L [id number] ####[facility] ([facility])[address] [place] [address] Urea nitrogen [Mass/Vol] 33 mg/dL High 7-25 [facility] Comment on above: Performed By: #### L [id number] ####[facility] ([facility])[address] [place] [address] UREA NITROGEN/CREATININE (MASS RATIO) IN SER/PLAS 34.0 Normal [facility] Comment on above: Performed By: #### L [id number] ####[facility] ([facility])[address] [place] [address] CBC WITH AUTO DIFFERENTIALon 08-20-2024 Basophils (Bld) [#/Vol] 0.04 10*3/uL Normal 0.00-0.20 [facility] Comment on above: Performed By: #### L [id number] ####[facility] ([facility])[address] [place] [address] Basophils/100 WBC (Bld) 0.4 % Normal 0.0-1.0 [facility] Comment on above: Performed By: #### L [id number] ####[facility] ([facility])[address] [place] [address] Eosinophils (Bld) [#/Vol] 0.58 10*3/uL High 0.00-0.50 [facility] Comment on above: Performed By: #### L [id number] ####[facility] ([facility])[address] [place] [address] Eosinophils/100 WBC (Bld) 5.6 % Normal 0.0-6.0 [facility] Comment on above: Performed By: #### L [id number] ####[facility] ([facility])[address] [place] [address] Erythrocyte distribution width (RBC) [Ratio] 15.1 % High 11.5-15.0 [facility] Comment on above: Performed By: #### L [id number] ####[facility] ([facility])[address] [place] [address] ERYTHROCYTE MEAN CORPUSCULAR HEMOGLOBIN CONCENTRATION (G/DL) BY AUTOMATED 30.5 g/dL Low 32.0-35.0 [facility] Comment on above: Performed By: #### L [id number] ####[facility] ([facility])[address] [place] [address] Hematocrit (Bld) [Volume fraction] 52.1 % Normal 39.0-55.0 [facility] Comment on above: Performed By: #### L [id number] ####[facility] ([facility])[address] [place] [address] Hemoglobin (Bld) [Mass/Vol] 15.9 g/dL Normal 13.0-17.0 [facility] Comment on above: Performed By: #### L [id number] ####[facility] ([facility])[address] [place] [address] Immature granulocytes (Bld) [#/Vol] 0.07 10*3/uL Normal 0.00-0.20 [facility] Comment on above: Performed By: #### L [id number] ####[facility] ([facility])[address] [place] [address] Immature granulocytes/100 WBC (Bld) 0.7 % Normal 0.0-1.0 [facility] Comment on above: Performed By: #### L [id number] ####[facility] ([facility])[address] [place] [address] Lymphocytes (Bld) [#/Vol] 0.94 10*3/uL Low 1.20-4.00 [facility] Comment on above: Performed By: #### L [id number] ####[facility] ([facility])[address] [place] [address] Lymphocytes/100 WBC (Bld) 9.1 % Low 20.0-45.0 [facility] Comment on above: Performed By: #### L [id number] ####[facility] ([facility])[address] [place] [address] MCH (RBC) [Entitic mass] 29.0 pg Normal 27.0-33.0 [facility] Comment on above: Performed By: #### L [id number] ####[facility] ([facility])[address] [place] [address] MCV (RBC) [Entitic vol] 94.9 fL Normal 82.0-98.[address] [facility] Comment on above: Performed By: #### L [id number] ####[facility] ([facility])[address] [place] [address] Monocytes (Bld) [#/Vol] 0.95 10*3/uL Normal 0.10-1.00 [facility] Comment on above: Performed By: #### L [id number] ####[facility] ([facility])[address] [place] [address] Monocytes/100 WBC (Bld) 9.2 % Normal 5.0-12.[address] [facility] Comment on above: Performed By: #### L [id number] ####[facility] ([facility])[address] [place] [address] Neutrophils (Bld) [#/Vol] 7.72 10*3/uL High 1.60-7.60 [facility] Comment on above: Performed By: #### L [id number] ####[facility] ([facility])[address] [place] [address] Neutrophils/100 WBC (Bld) 75.0 % High 40.0-72.0 [facility] Comment on above: Performed By: #### L [id number] ####[facility] ([facility])[address] [place] [address] NRBC (PER 100 WBCS) BY AUTOMATED COUNT 0.0 % Normal 0 [facility] Comment on above: Performed By: #### L [id number] ####[facility] ([facility])[address] [place] [address] PLATELETS (10*3/UL) IN BLOOD AUTOMATED COUNT 209 10*3/uL Normal 150-400 [facility] Comment on above: Performed By: #### L [id number] ####[facility] ([facility])[address] [place] [address] RBC (Bld) [#/Vol] 5.49 10*6/uL Normal 4.20-5.70 [facility] Comment on above: Performed By: #### L [id number] ####[facility] ([facility])[address] [place] [address] WBC (Bld) [#/Vol] 10.30 10*3/uL Normal 4.00-10.60 [facility] Comment on above: Performed By: #### L [id number] ####[facility] ([facility])[address] [place] [address] MAGNESIUMon 08-20-2024 Magnesium [Mass/Vol] 1.9 mg/dL Normal 1.9-2.7 [facility] Comment on above: Performed By: #### L [id number] ####[facility] ([facility])[address] [place] [address] PHOSPHORUSon 08-20-2024 Magnesium [Mass/Vol] 2.1 mg/dL Low 2.5-5.0 [facility] Comment on above: Performed By: #### L [id number] ####[facility] ([facility])[address] [place] [address] POCT GLUCOSE METER UNSOLICIT ED RESULTSon 08-20-2024 Glucose [Mass/Vol] 268 mg/dL High 70-105 [facility] Comment on above: Order Comment: Waive d Testing in the ED is performed under the ED CLIA certificate #[id number]. Result Comment: [email or web address] Performed By: #### L [id number] ####[facility] ([facility])[address] [place] [address] 30on 08-19-2024 30 Normal [facility] 30 Normal [facility] ANTI-XA (HEPARIN LEVEL)on HEPARIN UNFRACTIONATED (U/ML) IN PPP BY CHROMOGENIC METHOD 0.41 IU/mL Normal 0.3-0.7 [facility] Comment on above: Result Comment: Elysian roxaban and Apixaban will interfere with the anti Xa assay used to monitor UFH and LMWH. Performed By: #### L [id number] ####[facility] ([facility])[address] [place] [address] BASIC METABOLIC PANELon 07-23 Anion gap [Moles/Vol] 8 mmol/L Normal 7-20 [facility] Comment on above: Performed By: #### L [id number] ####[facility] ([facility])[address] [place] [address] Calcium [Mass/Vol] 8.9 mg/dL Normal 8.6-10.3 [facility] Comment on above: Performed By: #### L [id number] ####[facility] ([facility])[address] [place] [address] Chloride [Moles/Vol] 99 mmol/L Normal 98-107 [facility] Comment on above: Performed By: #### L [id number] ####[facility] ([facility])[address] [place] [address] CO2 [Moles/Vol] 37 mmol/L High 21-31 [facility] Comment on above: Performed By: #### L [id number] ####[facility] ([facility])[address] [place] [address] Creatinine [Mass/Vol] 1.00 mg/dL Normal 0.70-1.30 [facility] Comment on above: Performed By: #### L [id number] ####[facility] ([facility])[address] [place] [address] GLOMERULAR FILTRATION RATE ML/MIN/1.73 SQ M.PREDICTED 83.5 mL/min/1.73m*2 Normal >60.0 [facility] Comment on above: Result Comment: The [facility]???s estimated glomerular filtration rate (eGFR) will no [...] L [id number] ####[facility] ([facility])[address] [facility] [address] Glucose [Mass/Vol] 219 mg/dL High 70-100 [facility] Comment on above: Performed By: #### L [id number] ####[facility] ([facility])[address] [place] [address] Potassium [Moles/Vol] 3.9 mmol/L Normal 3.5-5.1 [facility] Comment on above: Performed By: #### L [id number] ####[facility] ([facility])[address] [place] [address] Sodium [Moles/Vol] 140 mmol/L Normal 136-145 [facility] Comment on above: Performed By: #### L [id number] ####[facility] ([facility])[address] [place] [address] Urea nitrogen [Mass/Vol] 28 mg/dL High 7-25 [facility] Comment on above: Performed By: #### L [id number] ####[facility] ([facility])[address] [place] [address] UREA NITROGEN/CREATININE (MASS RATIO) IN SER/PLAS 28.0 Normal [facility] Comment on above: Performed By: #### L [id number] ####[facility] ([facility])[address] [place] [address] CBC WITH AUTO DIFFERENTIALon 08-19-2024 Basophils (Bld) [#/Vol] 0.04 10*3/uL Normal 0.00-0.20 [facility] Comment on above: Performed By: #### L [id number] ####[facility] ([facility])[address] [place] [address] Basophils/100 WBC (Bld) 0.4 % Normal 0.0-1.0 [facility] Comment on above: Performed By: #### L [id number] ####[facility] ([facility])[address] [place] [address] Eosinophils (Bld) [#/Vol] 0.62 10*3/uL High 0.00-0.50 [facility] Comment on above: Performed By: #### L [id number] ####[facility] ([facility])[address] [place] [address] Eosinophils/100 WBC (Bld) 6.7 % High 0.0-6.0 [facility] Comment on above: Performed By: #### L [id number] ####[facility] ([facility])[address] [place] [address] Erythrocyte distribution width (RBC) [Ratio] 15.4 % High 11.5-15.0 [facility] Comment on above: Performed By: #### L [id number] ####[facility] ([facility])[address] [place] [address] ERYTHROCYTE MEAN CORPUSCULAR HEMOGLOBIN CONCENTRATION (G/DL) BY AUTOMATED 29.8 g/dL Low 32.0-35.0 [facility] Comment on above: Performed By: #### L [id number] ####[facility] ([facility])[address] [place] [address] Hematocrit (Bld) [Volume fraction] 49.4 % Normal 39.0-55.0 [facility] Comment on above: Performed By: #### L [id number] ####[facility] ([facility])[address] [place] [address] Hemoglobin (Bld) [Mass/Vol] 14.7 g/dL Normal 13.0-17.0 [facility] Comment on above: Performed By: #### L [id number] ####[facility] ([facility])[address] [place] [address] Immature granulocytes (Bld) [#/Vol] 0.06 10*3/uL Normal 0.00-0.20 [facility] Comment on above: Performed By: #### L [id number] ####[facility] ([facility])[address] [place] [address] Immature granulocytes/100 WBC (Bld) 0.7 % Normal 0.0-1.0 [facility] Comment on above: Performed By: #### L [id number] ####[facility] ([facility])[address] [place] [address] Lymphocytes (Bld) [#/Vol] 0.86 10*3/uL Low 1.20-4.00 [facility] Comment on above: Performed By: #### L [id number] ####[facility] ([facility])[address] [place] [address] Lymphocytes/100 WBC (Bld) 9.3 % Low 20.0-45.0 [facility] Comment on above: Performed By: #### L [id number] ####[facility] ([facility])[address] [place] [address] MCH (RBC) [Entitic mass] 28.9 pg Normal 27.0-33.0 [facility] Comment on above: Performed By: #### L [id number] ####[facility] ([facility])[address] [place] [address] MCV (RBC) [Entitic vol] 97.2 fL Normal 82.0-98.[address] [facility] Comment on above: Performed By: #### L [id number] ####[facility] ([facility])[address] [place] [address] Monocytes (Bld) [#/Vol] 0.94 10*3/uL Normal 0.10-1.00 [facility] Comment on above: Performed By: #### L [id number] ####[facility] ([facility])[address] [place] [address] Monocytes/100 WBC (Bld) 10.2 % Normal 5.0-12.0 [facility] Comment on above: Performed By: #### L [id number] ####[facility] ([facility])[address] [place] [address] Neutrophils (Bld) [#/Vol] 6.68 10*3/uL Normal 1.60-7.60 [facility] Comment on above: Performed By: #### L [id number] ####[facility] ([facility])[address] [place] [address] Neutrophils/100 WBC (Bld) 72.7 % High 40.0-72.0 [facility] Comment on above: Performed By: #### L [id number] ####[facility] ([facility])[address] [place] [address] NRBC (PER 100 WBCS) BY AUTOMATED COUNT 0.0 % Normal 0 [facility] Comment on above: Performed By: #### L [id number] ####[facility] ([facility])[address] [place] [address] PLATELETS (10*3/UL) IN BLOOD AUTOMATED COUNT 198 10*3/uL Normal 150-400 [facility] Comment on above: Performed By: #### L [id number] ####[facility] ([facility])[address] [place] [address] RBC (Bld) [#/Vol] 5.08 10*6/uL Normal 4.20-5.70 [facility] Comment on above: Performed By: #### L [id number] ####[facility] ([facility])[address] [place] [address] WBC (Bld) [#/Vol] 9.20 10*3/uL Normal 4.00-10.60 [facility] Comment on above: Performed By: #### L [id number] ####[facility] ([facility])[address] [place] [address] CONSULTon 08-19-2024 CONSULT Normal [facility] MAGNESIUMon 08-19-2024 Magnesium [Mass/Vol] 1.9 mg/dL Normal 1.9-2.7 [facility] Comment on above: Performed By: #### L [id number] ####[facility] ([facility])[address] [place] [address] PHOSPHORUSon 08-19-2024 Magnesium [Mass/Vol] 2.9 mg/dL Normal 2.5-5.0 [facility] Comment on above: Performed By: #### L [id number] ####[facility] ([facility])[address] [place] [address] POCT GLUCOSE METER UNSOLICIT ED RESULTSon 08-19-2024 Glucose [Mass/Vol] 239 mg/dL High 70-105 [facility] Comment on above: Order Comment: Waive d Testing in the ED is performed under the ED CLIA certificate #[id number]. Result Comment: [email or web address] Performed By: #### L [id number] ####[facility] ([facility])[address] [place] [address] Glucose [Mass/Vol] 251 mg/dL High 70-105 [facility] Comment on above: Order Comment: Waive d Testing in the ED is performed under the ED CLIA certificate #[id number]. Result Comment: [email or web address] Performed By: #### L [id number] ####[facility] ([facility])[address] [place] [address] Glucose [Mass/Vol] 185 mg/dL High 70-105 [facility] Comment on above: Order Comment: Waive d Testing in the ED is performed under the ED CLIA certificate #[id number]. Result Comment: [email or web address] Performed By: #### L [id number] ####[facility] ([facility])[address] [place] [address] TRIGLYCERIDESon 08-19-2024 FASTING? UNKNOWN Normal [facility] Comment on above: Performed By: #### L [id number] ####[facility] ([facility])[address] [place] [address] Magnesium [Mass/Vol] 192 mg/dL High 40-149 [facility] Comment on above: Result Comment: TRIG LYCERIDE REFERENCE RANGE:20 YEARS AND OLDER CARDIOVASCULAR RISKLESS THAN 150 mg/dL LOW [id number] TO 199 mg/dL BORDERLINE [id number] mg/dL AND GREATER HIGH RISK Performed By: #### L [id number] ####[facility] ([facility])[address] [place] [address] ANTI-XA (HEPARIN LEVEL)on HEPARIN UNFRACTIONATED (U/ML) IN PPP BY CHROMOGENIC METHOD 0.50 IU/mL Normal 0.3-0.7 [facility] Comment on above: Result Comment: Elysian roxaban and Apixaban will interfere with the anti Xa assay used to monitor UFH and LMWH. Performed By: #### L [id number] ####[facility] ([facility])[address] [place] [address] HEPARIN UNFRACTIONATED (U/ML) IN PPP BY CHROMOGENIC METHOD 0.60 IU/mL Normal 0.3-0.7 [facility] Comment on above: Result Comment: Tatyana roxaban and Apixaban will interfere with the anti Xa assay used to monitor UFH and LMWH. Performed By: #### L [id number] ####[facility] ([facility])[address] [place] [place] [address] BASIC METABOLIC PANELon 07-22 Anion gap [Moles/Vol] 8 mmol/L Normal 7-20 [facility] Comment on above: Performed By: #### L [id number] ####[facility] ([facility])[address] [place] [address] Calcium [Mass/Vol] 8.7 mg/dL Normal 8.6-10.3 [facility] Comment on above: Performed By: #### L [id number] ####[facility] ([facility])[address] [place] [address] Chloride [Moles/Vol] 98 mmol/L Normal 98-107 [facility] Comment on above: Performed By: #### L [id number] ####[facility] ([facility])[address] [place] [address] CO2 [Moles/Vol] 41 mmol/L Critically high 21-31 [facility] Comment on above: Performed By: #### L [id number] ####[facility] ([facility])[address] [place] [address] Creatinine [Mass/Vol] 1.05 mg/dL Normal 0.70-1.30 [facility] Comment on above: Performed By: #### L [id number] ####[facility] ([facility])[address] [place] [address] GLOMERULAR FILTRATION RATE ML/MIN/1.73 SQ M.PREDICTED 78.8 mL/min/1.73m*2 Normal >60.0 [facility] Comment on above: Result Comment: The [facility]???s estimated glomerular filtration rate (eGFR) will no [...] L [id number] ####[facility] ([facility])[address] [place] [address] Glucose [Mass/Vol] 201 mg/dL High 70-100 [facility] Comment on above: Performed By: #### L [id number] ####[facility] ([facility] [place] [address] Potassium [Moles/Vol] 3.7 mmol/L Normal 3.5-5.1 [facility] Comment on above: Performed By: #### L [id number] ####[facility] ([facility] [place] [address] Sodium [Moles/Vol] 143 mmol/L Normal 136-145 [facility] Comment on above: Performed By: #### L [id number] ####[facility] ([facility])[address] [place] [address] Urea nitrogen [Mass/Vol] 25 mg/dL Normal 7-25 [facility] Comment on above: Performed By: #### L [id number] ####[facility] ([facility])[address] [place] [address] UREA NITROGEN/CREATININE (MASS RATIO) IN SER/PLAS 23.8 Normal [facility] Comment on above: Performed By: #### L [id number] ####[facility] LAB ([facility])[address] [place] [address] CBC WITH AUTO DIFFERENTIALon 08-18-2024 Basophils (Bld) [#/Vol] 0.03 10*3/uL Normal 0.00-0.20 [facility] Comment on above: Performed By: #### L [id number] ####[facility] ([facility])[address] [place] [address] Basophils/100 WBC (Bld) 0.3 % Normal 0.0-1.[address] [facility] Comment on above: Performed By: #### L [id number] ####[facility] ([facility])[address] [place] [address] Eosinophils (Bld) [#/Vol] 0.45 10*3/uL Normal 0.00-0.50 [facility] Comment on above: Performed By: #### L [id number] ####[facility] ([facility])[address] [place] [address] Eosinophils/100 WBC (Bld) 5.0 % Normal 0.0-6.0 [facility] Comment on above: Performed By: #### L [id number] ####[facility] (BEAKER)[address] [place] [address] Erythrocyte distribution width (RBC) [Ratio] 15.5 % High 11.5-15.0 [facility] Comment on above: Performed By: #### L [id number] ####[facility] ([facility])[address] [place] [address] ERYTHROCYTE MEAN CORPUSCULAR HEMOGLOBIN CONCENTRATION (G/DL) BY AUTOMATED 29.7 g/dL Low 32.0-35.0 [facility] Comment on above: Performed By: #### L [id number] ####[facility] ([facility])[address] [place] [address] Hematocrit (Bld) [Volume fraction] 49.5 % Normal 39.0-55.0 [facility] Comment on above: Performed By: #### L [id number] ####[facility] ([facility])[address] [place] [address] Hemoglobin (Bld) [Mass/Vol] 14.7 g/dL Normal 13.0-17.0 [facility] Comment on above: Performed By: #### L [id number] ####[facility] LAB (AKER)[address] [place] [address] Immature granulocytes (Bld) [#/Vol] 0.05 10*3/uL Normal 0.00-0.20 [facility] Comment on above: Performed By: #### L [id number] ####[facility] ([facility])[address] [place] [address] Immature granulocytes/100 WBC (Bld) 0.6 % Normal 0.0-1.0 [facility] Comment on above: Performed By: #### L [id number] ####[facility] (BEAKER)[address] [place] [address] Lymphocytes (Bld) [#/Vol] 0.93 10*3/uL Low 1.20-4.00 [facility] Comment on above: Performed By: #### L [id number] ####[facility] (BEAKER)[address] [place] [address] Lymphocytes/100 WBC (Bld) 10.4 % Low 20.0-45.0 [facility] Comment on above: Performed By: #### L [id number] ####[facility] (BEAKER)[address] [address] MCH (RBC) [Entitic mass] 29.2 pg Normal 27.0-33.0 [facility] Comment on above: Performed By: #### L [id number] ####[facility] (BEAKER)[address] [place], [place] [address] MCV (RBC) [Entitic vol] 98.2 fL High 82.0-98.[address] [facility] Comment on above: Performed By: #### L [id number] ####[facility] (BEAKER)[address] [place], [place] [address] Monocytes (Bld) [#/Vol] 1.06 10*3/uL High 0.10-1.00 [facility] Comment on above: Performed By: #### L [id number] ####[facility] (BEAKER)[address] [place], [place] [address] Monocytes/100 WBC (Bld) 11.9 % Normal 5.0-12.[address] [facility] Comment on above: Performed By: #### L [id number] ####[facility] (BEAKER)[address] [place] [address] Neutrophils (Bld) [#/Vol] 6.41 10*3/uL Normal 1.60-7.60 [facility] Comment on above: Performed By: #### L [id number] ####[facility] (BE[facility])[address] [place], [place] [address] Neutrophils/100 WBC (Bld) 71.8 % Normal 40.0-72.0 [facility] Comment on above: Performed By: #### L [id number] ####[facility] (BEAKER)[address] [place] [address] NRBC (PER 100 WBCS) BY AUTOMATED COUNT 0.0 % Normal 0 [facility] Comment on above: Performed By: #### L [id number] ####[facility] ([facility])[address] [place] [address] PLATELETS (10*3/UL) IN BLOOD AUTOMATED COUNT 208 10*3/uL Normal 150-400 [facility] Comment on above: Performed By: #### L [id number] ####[facility] ([facility])[address] [place] [address] RBC (Bld) [#/Vol] 5.04 10*6/uL Normal 4.20-5.70 [facility] Comment on above: Performed By: #### L [id number] ####[facility] ([facility])[address] [place] [address] WBC (Bld) [#/Vol] 8.93 10*3/uL Normal 4.00-10.60 [facility] Comment on above: Performed By: #### L [id number] ####[facility] ([facility])[address] [place] [address] CONSULTon 08-18-2024 CONSULT Normal [facility] MAGNESIUMon 08-18-2024 Magnesium [Mass/Vol] 2.1 mg/dL Normal 1.9-2.7 [facility] Comment on above: Performed By: #### L [id number] ####[facility] ([facility])[address] [place] [address] PHOSPHORUSon 08-18-2024 Magnesium [Mass/Vol] 2.9 mg/dL Normal 2.5-5.0 [facility] Comment on above: Performed By: #### L [id number] ####[facility] ([facility])[address] [place] [address] POCT GLUCOSE METER UNSOLICIT ED RESULTSon 08-18-2024 Glucose [Mass/Vol] 194 mg/dL High 70-105 [facility] Comment on above: Order Comment: Waive d Testing in the ED is performed under the ED CLIA certificate #[id number]. Result Comment: [email or web address] Performed By: #### L [id number] ####[facility] ([facility])[address] [place] [address] Glucose [Mass/Vol] 183 mg/dL High 70-105 [facility] Comment on above: Order Comment: Waive d Testing in the ED is performed under the ED CLIA certificate #[id number]. Result Comment: [email or web address] [email or web address] Performed By: #### L [id number] ####[facility] ([facility])[address] [place] [address] Glucose [Mass/Vol] 173 mg/dL High 70-105 [facility] Comment on above: Order Comment: Waive d Testing in the ED is performed under the ED CLIA certificate #[id number]. Result Comment: [email or web address] [email or web address] Performed By: #### L [id number] ####[facility] ([facility])[address] [place] [address] Glucose [Mass/Vol] 200 mg/dL High 70-105 [facility] Comment on above: Order Comment: Waive d Testing in the ED is performed under the ED CLIA certificate #[id number]. Result Comment: [email or web address] Performed By: #### L [id number] ####[facility] ([facility])[address] [place] [address] SPUTUM CULTUREon 08-18-2024 Clindamycin [Susc] <=0.5 Susceptible [facility] Comment on above: Performed By: #### L [id number] ####[facility] ([facility])[address] [place] [address] DAPTOmycin [Susc] <=1 Susceptible [facility] Comment on above: Performed By: #### L [id number] ####[facility] ([facility])[address] [place] [address] Linezolid [Susc] <=1 Susceptible [facility] Comment on above: Performed By: #### L [id number] ####[facility] ([facility])[address] [place] [address] Oxacillin [Susc] >2 Resistant [facility] Comment on above: Performed By: #### L [id number] ####[facility] ([facility])[address] [place] [address] Tetracycline [Susc] <=0.5 Susceptible [facility] Comment on above: Performed By: #### L [id number] ####[facility] ([facility])[address] [place] [address] Trimethoprim+Sulfamethox azole [Susc] <=0.5/9.5 Susceptible [facility] Comment on above: Performed By: #### L [id number] ####[facility] ([facility])[address] [place] [address] Vancomycin [Susc] <=0.5 Susceptible [facility] Comment on above: Performed By: #### L [id number] ####[facility] ([facility])[address] [place] [address] TRIGLYCERIDESon 08-18-2024 FASTING? unknown Normal [facility] Comment on above: Performed By: #### L [id number] ####[facility] ([facility])[address] [place] [address] Magnesium [Mass/Vol] 154 mg/dL High 40-149 [facility] Comment on above: Result Comment: TRIG LYCERIDE REFERENCE RANGE:20 YEARS AND OLDER CARDIOVASCULAR RISKLESS THAN 150 mg/dL LOW [id number] TO 199 mg/dL BORDERLINE [id number] mg/dL AND GREATER HIGH RISK Performed By: #### L [id number] ####[facility] ([facility])[address] [place] [address] 30on 08-17-2024 30 Normal [facility] ANTI-XA (HEPARIN LEVEL)on HEPARIN UNFRACTIONATED (U/ML) IN PPP BY CHROMOGENIC METHOD 0.86 IU/mL High 0.3-0.7 [facility] Comment on above: Result Comment: Elysian roxaban and Apixaban will interfere with the anti Xa assay used to monitor UFH and LMWH. Performed By: #### L [id number] ####[facility] ([facility])[address] [place] [address] HEPARIN UNFRACTIONATED (U/ML) IN PPP BY CHROMOGENIC METHOD >1.00 Critically high 0.3-0.7 [facility] Comment on above: Result Comment: Tatyana roxaban and Apixaban will interfere with the anti Xa assay used to monitor UFH and LMWH. Performed By: #### L [id number] ####[facility] ([facility])[address] [facility] [address] HEPARIN UNFRACTIONATED (U/ML) IN PPP BY CHROMOGENIC METHOD >1.00 Critically high 0.3-0.7 [facility] Comment on above: Performed By: #### L [id number] ####[facility] ([facility])[address] [facility] [address] APTTon 08-17-2024 ACTIVATED PARTIAL THROMBOPLASTIN TIME IN PPP BY COAGULATION ASSAY 99.6 Seconds High 25.0-35.0 [facility] Comment on above: Result Comment: Clin ical significance of the APTT is questionable in the presence of heparin. Performed By: #### L [id number] ####[facility] ([facility])[address] [facility] [place] [address] ACTIVATED PARTIAL THROMBOPLASTIN TIME IN PPP BY COAGULATION ASSAY 98.9 Seconds High 25.0-35.0 [facility] Comment on above: Result Comment: Clin ical significance of the APTT is questionable in the presence of heparin. Performed By: #### L [id number] ####[facility] ([facility])[address] [place] [address] B-TYPE NATRIURETIC PEPTIDEon 08-17-2024 Natriuretic peptide B (Bld) [Mass/Vol] 75 pg/mL Normal 0-100 [facility] Comment on above: Performed By: #### L [id number] ####[facility] ([facility])[address] [address] BASIC METABOLIC PANELon 07-22 Anion gap [Moles/Vol] 9 mmol/L Normal 7-20 [facility] Comment on above: Performed By: #### L [id number] ####[facility] ([facility])[address] [place] [address] Calcium [Mass/Vol] 8.8 mg/dL Normal 8.6-10.3 [facility] Comment on above: Performed By: #### L [id number] ####[facility] ([facility])[address] [facility] [place] [address] Chloride [Moles/Vol] 97 mmol/L Low 98-107 [facility] Comment on above: Performed By: #### L [id number] ####[facility] ([facility])[address] [place] [address] CO2 [Moles/Vol] 45 mmol/L Critically high 21-31 [facility] Comment on above: Performed By: #### L [id number] ####[facility] ([facility])[address] [facility] [place] [address] Creatinine [Mass/Vol] 0.93 mg/dL Normal 0.70-1.30 [facility] Comment on above: Performed By: #### L [id number] ####[facility] ([facility])[address] [facility] [place] [address] GLOMERULAR FILTRATION RATE ML/MIN/1.73 SQ M.PREDICTED 91.1 mL/min/1.73m*2 Normal >60.0 [facility] Comment on above: Result Comment: The [facility]???s estimated glomerular filtration rate (eGFR) will no [...] L [id number] ####[facility] ([facility])[address] [place] [address] Glucose [Mass/Vol] 190 mg/dL High 70-100 [facility] Comment on above: Performed By: #### L [id number] ####[facility] ([facility])[address] [place] [address] Potassium [Moles/Vol] 3.5 mmol/L Normal 3.5-5.1 [facility] Comment on above: Performed By: #### L [id number] ####[facility] ([facility])[address] [place] [address] Sodium [Moles/Vol] 147 mmol/L High 136-145 [facility] Comment on above: Performed By: #### L [id number] ####[facility] ([facility])[address] [place] [address] Urea nitrogen [Mass/Vol] 28 mg/dL High 7-25 [facility] Comment on above: Performed By: #### L [id number] ####[facility] ([facility])[address] [place] [address] UREA NITROGEN/CREATININE (MASS RATIO) IN SER/PLAS 30.1 Normal [facility] Comment on above: Performed By: #### L [id number] ####[facility] ([facility])[address] [place] [address] CBC WITH AUTO DIFFERENTIALon 08-17-2024 Basophils (Bld) [#/Vol] 0.02 10*3/uL Normal 0.00-0.20 [facility] Comment on above: Performed By: #### L [id number] ####[facility] ([facility])[address] [place] [address] Basophils/100 WBC (Bld) 0.2 % Normal 0.0-1.[address] [facility] Comment on above: Performed By: #### L [id number] ####[facility] ([facility])[address] [place] [address] Eosinophils (Bld) [#/Vol] 0.20 10*3/uL Normal 0.00-0.50 [facility] Comment on above: Performed By: #### L [id number] ####[facility] (BEAKER)[address] [place] [address] Eosinophils/100 WBC (Bld) 2.4 % Normal 0.0-6.0 [facility] Comment on above: Performed By: #### L [id number] ####[facility] (BEAKER)[address] [place] [address] Erythrocyte distribution width (RBC) [Ratio] 15.3 % High 11.5-15.0 [facility] Comment on above: Performed By: #### L [id number] ####[facility] (BEAKER)[address] [place] [address] ERYTHROCYTE MEAN CORPUSCULAR HEMOGLOBIN CONCENTRATION (G/DL) BY AUTOMATED 30.0 g/dL Low 32.0-35.0 [facility] Comment on above: Performed By: #### L [id number] ####[facility] (BEAKER)[address] [place] [address] Hematocrit (Bld) [Volume fraction] 49.7 % Normal 39.0-55.0 [facility] Comment on above: Performed By: #### L [id number] ####[facility] (BEAKER)[address] [place] [address] Hemoglobin (Bld) [Mass/Vol] 14.9 g/dL Normal 13.0-17.0 [facility] Comment on above: Performed By: #### L [id number] ####[facility] (BEAKER)[address] [facility] [address] Immature granulocytes (Bld) [#/Vol] 0.04 10*3/uL Normal 0.00-0.20 [facility] Comment on above: Performed By: #### L [id number] ####[facility] (BEAKER)[address] [place] [address] Immature granulocytes/100 WBC (Bld) 0.5 % Normal 0.0-1.0 [facility] Comment on above: Performed By: #### L [id number] ####[facility] ([facility])[address] [place] [address] Lymphocytes (Bld) [#/Vol] 0.87 10*3/uL Low 1.20-4.00 [facility] Comment on above: Performed By: #### L [id number] ####[facility] ([facility])[address] [place] [address] Lymphocytes/100 WBC (Bld) 10.5 % Low 20.0-45.0 [facility] Comment on above: Performed By: #### L [id number] ####[facility] ([facility])[address] [place] [address] MCH (RBC) [Entitic mass] 29.0 pg Normal 27.0-33.0 [facility] Comment on above: Performed By: #### L [id number] ####[facility] ([facility])[address] [place] [address] MCV (RBC) [Entitic vol] 96.9 fL Normal 82.0-98.[address] [facility] Comment on above: Performed By: #### L [id number] ####[facility] ([facility])[address] [place] [address] Monocytes (Bld) [#/Vol] 1.21 10*3/uL High 0.10-1.00 [facility] Comment on above: Performed By: #### L [id number] ####[facility] ([facility])[address] [place] [address] Monocytes/100 WBC (Bld) 14.6 % High 5.0-12.[address] [facility] Comment on above: Performed By: #### L [id number] ####[facility] ([facility])[address] [place] [address] Neutrophils (Bld) [#/Vol] 5.97 10*3/uL Normal 1.60-7.60 [facility] Comment on above: Performed By: #### L [id number] ####[facility] ([facility])[address] [place] [address] Neutrophils/100 WBC (Bld) 71.8 % Normal 40.0-72.0 [facility] Comment on above: Performed By: #### L [id number] ####[facility] ([facility])[address] [place] [address] NRBC (PER 100 WBCS) BY AUTOMATED COUNT 0.0 % Normal 0 [facility] Comment on above: Performed By: #### L [id number] ####[facility] ([facility])[address] [place] [address] PLATELETS (10*3/UL) IN BLOOD AUTOMATED COUNT 210 10*3/uL Normal 150-400 [facility] Comment on above: Performed By: #### L [id number] ####[facility] ([facility])[address] [place] [address] RBC (Bld) [#/Vol] 5.13 10*6/uL Normal 4.20-5.70 [facility] Comment on above: Performed By: #### L [id number] ####[facility] ([facility])[address] [place] [address] WBC (Bld) [#/Vol] 8.31 10*3/uL Normal 4.00-10.60 [facility] Comment on above: Performed By: #### L [id number] ####[facility] ([facility])[address] [place] [address] MAGNESIUMon 08-17-2024 Magnesium [Mass/Vol] 2.2 mg/dL Normal 1.9-2.7 [facility] Comment on above: Performed By: #### L [id number] ####[facility] (BEAKER)[address] [place] [address] Magnesium [Mass/Vol] 1.8 mg/dL Low 1.9-2.7 [facility] Comment on above: Performed By: #### L [id number] ####[facility] ([facility])[address] [place] [address] Magnesium [Mass/Vol] 1.6 mg/dL Low 1.9-2.7 [facility] Comment on above: Performed By: #### L [id number] ####[facility] ([facility])[address] [place] [address] PHOSPHORUSon 08-17-2024 Magnesium [Mass/Vol] 3.2 mg/dL Normal 2.5-5.0 [facility] Comment on above: Performed By: #### L [id number] ####[facility] ([facility])[address] [place] [address] POCT GLUCOSE METER UNSOLICIT ED RESULTSon 08-17-2024 Glucose [Mass/Vol] 184 mg/dL High 70-105 [facility] Comment on above: Order Comment: Waive d Testing in the ED is performed under the ED CLIA certificate #[id number]. Result Comment: [email or web address] Performed By: #### L [id number] ####[facility] ([facility])[address] [place] [address] Glucose [Mass/Vol] 191 mg/dL High 70-105 [facility] Comment on above: Order Comment: Waive d Testing in the ED is performed under the ED CLIA certificate #[id number]. Result Comment: [email or web address] Performed By: #### L [id number] ####[facility] ([facility])[address] [place] [address] POTASSIUMon 08-17-2024 Potassium [Moles/Vol] 3.8 mmol/L Normal 3.5-5.1 [facility] Comment on above: Performed By: #### L [id number] ####[facility] ([facility])[address] [place] [address] Potassium [Moles/Vol] 3.7 mmol/L Normal 3.5-5.1 [facility] Comment on above: Performed By: #### L [id number] ####[facility] (BEAKER)[address] [place] [address] PROTIME-INRon 08-17-2024 INR IN PPP BY COAGULATION ASSAY 1.19 High 0.90-1.10 [facility] Comment on above: Result Comment: [facility] RECOMMENDED INR FOR WARFARIN THERAPY CONDITION INRPROPHYLAXIS [...] L [id number] ####[facility] (BEAKER)[address] [place] [address] PROTHROMBIN TIME (PT) IN PPP BY COAGULATION ASSAY 15.0 Seconds High 12.3-14.8 [facility] Comment on above: Performed By: #### L [id number] ####[facility] (BEAKER)[address] [place] [address] INR IN PPP BY COAGULATION ASSAY 1.19 High 0.90-1.10 [facility] Comment on above: Result Comment: [facility] P RECOMMENDED INR FOR WARFARIN THERAPY CONDITION [...] L [id number] ####[facility] ([facility])[address] [place] [address] PROTHROMBIN TIME (PT) IN PPP BY COAGULATION ASSAY 15.1 Seconds High 12.3-14.8 [facility] Comment on above: Performed By: #### L [id number] ####[facility] ([facility])[address] [place] [address] TRIGLYCERIDESon 08-17-2024 FASTING? Unknown Normal [facility] Comment on above: Performed By: #### L [id number] ####[facility] ([facility])[address] [place] [address] Magnesium [Mass/Vol] 119 mg/dL Normal 40-149 [facility] Comment on above: Result Comment: TRIG LYCERIDE REFERENCE RANGE:20 YEARS AND OLDER CARDIOVASCULAR RISKLESS THAN 150 mg/dL LOW [id number] TO 199 mg/dL BORDERLINE [id number] mg/dL AND GREATER HIGH RISK Performed By: #### L [id number] ####[facility] ([facility])[address] [facility] [place] [address] TROPONIN Ion 08-17-2024 Troponin I.cardiac [Mass/Vol] 0.04 ng/mL Normal 0.00-0.04 [facility] Comment on above: Performed By: #### L [id number] ####[facility] ([facility])[address] [place] [address] Troponin I.cardiac [Mass/Vol] 0.04 ng/mL Normal 0.00-0.04 [facility] Comment on above: Performed By: #### L [id number] ####[facility] ([facility])[address] [place] [address] VANCOMYCIN, TROUGHon 025 VANCOMYCIN (UG/ML) IN SER/PLAS - TROUGH 23.6 ug/mL Critically high 5.0-20.0 [facility] Comment on above: Performed By: #### L [id number] ####[facility] CENTER)[address] [place], [place] [address] BASIC METABOLIC PANELon 07-22 Anion gap [Moles/Vol] 11 mmol/L Normal 7- [facility] Comment on above: Performed By: #### L [id number] ####[facility] (BEAKER)[address] [place] [address] Calcium [Mass/Vol] 8.9 mg/dL Normal 8.6-10.3 [facility] Comment on above: Performed By: #### L [id number] ####[facility] (BEAKER)[address] [place] [address] Chloride [Moles/Vol] 99 mmol/L Normal 98-107 [facility] Comment on above: Performed By: #### L [id number] ####[facility] (BEAKER)[address] [place] [address] CO2 [Moles/Vol] 38 mmol/L High - [facility] Comment on above: Performed By: #### L [id number] ####[facility] (BEAKER)[address] [place] [address] Creatinine [Mass/Vol] 1.10 mg/dL Normal 0.70-1.30 [facility] Comment on above: Performed By: #### L [id number] ####[facility] (BEAKER)[address] [place] [address] GLOMERULAR FILTRATION RATE ML/MIN/1.73 SQ M.PREDICTED 74.5 mL/min/1.73m*2 Normal >60.0 [facility] Comment on above: Result Comment: The [facility]???s estimated glomerular filtration rate (eGFR) will no [...] L [id number] ####[facility] ([facility])[address] [place] [address] Glucose [Mass/Vol] 202 mg/dL High 70-100 [facility] Comment on above: Performed By: #### L [id number] ####[facility] ([facility])[address] [place] [address] Potassium [Moles/Vol] 3.3 mmol/L Low 3.5-5.1 [facility] Comment on above: Performed By: #### L [id number] ####[facility] ([facility])[address] [place] [address] Sodium [Moles/Vol] 145 mmol/L Normal 136-145 [facility] Comment on above: Performed By: #### L [id number] ####[facility] (BEAKER)[address] [place] [address] Urea nitrogen [Mass/Vol] 38 mg/dL High 7-25 [facility] Comment on above: Performed By: #### L [id number] ####[facility] ([facility])[address] [place] [address] UREA NITROGEN/CREATININE (MASS RATIO) IN SER/PLAS 34.5 Normal [facility] Comment on above: Performed By: #### L [id number] ####[facility] ([facility])[address] [place] [address] CALCIUM, IONIZEDon CALCIUM IONIZED (MMOL/L) IN BLOOD Normal [facility] Comment on above: Result Comment: C^In calculable Performed By: #### C ALCIUM, IONIZED ####[facility] [id number] [place] [address] [place] CBC WITH AUTO DIFFERENTIALon 08-16-2024 Erythrocyte distribution width (RBC) [Ratio] 15.1 % High 11.5-15.0 [facility] Comment on above: Performed By: #### L [id number] ####[facility] (BEAKER)[address] [place] [address] ERYTHROCYTE MEAN CORPUSCULAR HEMOGLOBIN CONCENTRATION (G/DL) BY AUTOMATED 30.9 g/dL Low 32.0-35.0 [facility] Comment on above: Performed By: #### L [id number] ####[facility] (BEAKER)[address] [place] [address] Hematocrit (Bld) [Volume fraction] 52.1 % Normal 39.0-55.0 [facility] Comment on above: Performed By: #### L [id number] ####[facility] (BEAKER)[address] [place] [address] Hemoglobin (Bld) [Mass/Vol] 16.1 g/dL Normal 13.0-17.0 [facility] Comment on above: Performed By: #### L [id number] ####[facility] (BEAKER)[address] [place] [address] MCH (RBC) [Entitic mass] 29.4 pg Normal 27.0-33.0 [facility] Comment on above: Performed By: #### L [id number] ####[facility] (BEAKER)[address] [place] [address] MCV (RBC) [Entitic vol] 95.1 fL Normal 82.0-98.0 [facility] on above: Performed By: #### L [id number] ####[facility] ([facility]ER)[address] [place] [address] NRBC (PER 100 WBCS) BY AUTOMATED COUNT 0.0 % Normal 0 [facility] Comment on above: Performed By: #### L [id number] ####[facility] ([facility])[address] [place] [address] PLATELETS (10*3/UL) IN BLOOD AUTOMATED COUNT 243 10*3/uL Normal 150-400 [facility] Comment on above: Performed By: #### L [id number] ####[facility] ([facility])[address] [place] [address] RBC (Bld) [#/Vol] 5.48 10*6/uL Normal 4.20-5.70 [facility] Comment on above: Performed By: #### L [id number] ####[facility] ([facility])[address] [place] [address] WBC (Bld) [#/Vol] 9.57 10*3/uL Normal 4.00-10.60 [facility] Comment on above: Performed By: #### L [id number] ####[facility] ([facility])[address] [place] [address] CONSULTon 08-16-2024 CONSULT Normal [facility] CONSULT Normal [facility] CTA CHEST W IV CONTRASTon CTA CHEST W IV CONTRAST Invalid Interpretation Code [facility] MAGNESIUMon 08-16-2024 Magnesium [Mass/Vol] 1.9 mg/dL Normal 1.9-2.7 [facility] Comment on above: Performed By: #### L [id number] ####[facility] ([facility])[address] [place] [address] Magnesium [Mass/Vol] 1.7 mg/dL Low 1.9-2.7 [facility] Comment on above: Performed By: #### L [id number] ####[facility] ([facility])[address] [place] [address] MANUAL DIFFERENTIALon 2024 BASOPHILS (10*3/UL) IN BLOOD BY CALCULATION 0.02 10*3/uL Normal 0.00-0.20 [facility] Comment on above: Performed By: #### L [id number] ####[facility] ([facility])[address] [place] [address] BASOPHILS/100 LEUKOCYTES IN BLOOD BY AUTOMATED COUNT 0.2 % Normal 0.0-1.0 [facility] Comment on above: Performed By: #### L [id number] ####[facility] ([facility])[address] [place] [address] EOSINOPHILS (10*3/UL) IN BLOOD BY CALCULATION 0.10 10*3/uL Normal 0.00-0.50 [facility] Comment on above: Performed By: #### L [id number] ####[facility] ([facility])[address] [place] [address] EOSINOPHILS/100 LEUKOCYTES IN BLOOD BY AUTOMATED COUNT 1.0 % Normal 0.0-6.0 [facility] Comment on above: Performed By: #### L [id number] ####[facility] ([facility])[address] [place] [address] IMMATURE GRANULOCYTES (10*3/UL) IN BLOOD BY CALCULATION 0.06 10*3/uL Normal 0.00-0.20 [facility] Comment on above: Performed By: #### L [id number] ####[facility] ([facility])[address] [place] [address] IMMATURE GRANULOCYTES/100 LEUKOCYTES IN BLOOD BY AUTOMATED COUNT 0.6 % Normal 0.0-1.0 [facility] Comment on above: Performed By: #### L [id number] ####[facility] ([facility])[address] [place] [address] LYMPHOCYTES (10*3/UL) IN BLOOD BY CALCULATION 0.73 10*3/uL Low 1.20-4.00 [facility] Comment on above: Performed By: #### L [id number] ####[facility] (BEAKER)[address] [place] [address] LYMPHOCYTES/100 LEUKOCYTES IN BLOOD BY AUTOMATED COUNT 7.6 % Low 20.0-45.0 [facility] Comment on above: Performed By: #### L [id number] ####[facility] ([facility])[address] [place] [address] MONOCYTES (10*3/UL) IN BLOOD BY CALCUATION 1.52 10*3/uL High 0.10-1.00 [facility] Comment on above: Performed By: #### L [id number] ####[facility] ([facility])[address] [place] [address] MONOCYTES/100 LEUKOCYTES IN BLOOD BY AUTOMATED COUNT 15.9 % High 5.0-12.0 [facility] Comment on above: Performed By: #### L [id number] ####[facility] ([facility])[address] [place] [place] [address] NEUTROPHILS (10*3/UL) IN BLOOD BY CALCULATION 7.1 10*3/uL Normal 1.6-7.6 [facility] Comment on above: Performed By: #### L [id number] ####[facility] ([facility])[address] [place] [address] NEUTROPHILS/100 LEUKOCYTES IN BLOOD BY AUTOMATED COUNT 74.7 % High 40.0-72.0 [facility] Comment on above: Performed By: #### L [id number] ####[facility] ([facility])[address] [place] [address] PHOSPHORUSon 08-16-2024 Magnesium [Mass/Vol] 3.8 mg/dL Normal 2.5-5.0 [facility] Comment on above: Performed By: #### L [id number] ####[facility] ([facility])[address] [place], [place] [address] Magnesium [Mass/Vol] 1.8 mg/dL Low 2.5-5.0 [facility] Comment on above: Performed By: #### L [id number] ####[facility] ([facility])[address] [place] [address] POCT GLUCOSE METER UNSOLICIT ED RESULTSon 01-27-2025 Glucose [Mass/Vol] 189 mg/dL High 70-105 [facility] Comment on above: Order Comment: Waive d Testing in the ED is performed under the ED CLIA certificate #[id number]. Result Comment: [email or web address] es Performed By: #### L [id number] ####[facility] ([facility])[address] [place] [address] Glucose [Mass/Vol] 205 mg/dL High 70-105 [facility] Comment on above: Order Comment: Waive d Testing in the ED is performed under the ED CLIA certificate #[id number]. Result Comment: rgil l Performed By: #### L [id number] ####[facility] ([facility])[address] [place] [address] Glucose [Mass/Vol] 200 mg/dL High 70-105 [facility] Comment on above: Order Comment: Waive d Testing in the ED is performed under the ED CLIA certificate #[id number]. Result Comment: [email or web address] [email or web address] Performed By: #### L [id number] ####[facility] ([facility])[address] [place] [address] Glucose [Mass/Vol] 207 mg/dL High 70-105 [facility] Comment on above: Order Comment: Waive d Testing in the ED is performed under the ED CLIA certificate #[id number]. Result Comment: oyod er Performed By: #### L [id number] ####[facility] ([facility])[address] [place] [address] POTASSIUMon 08-16-2024 Potassium [Moles/Vol] 3.3 mmol/L Low 3.5-5.1 [facility] Comment on above: Performed By: #### L [id number] ####[facility] ([facility])[address] [place] [address] Potassium [Moles/Vol] 3.5 mmol/L Normal 3.5-5.1 [facility] Comment on above: Performed By: #### L [id number] ####[facility] (BEAKER)[address] [place] [address] POTASSIUM, WHOLE BLOODon Potassium [Moles/Vol] 3.5 mmol/L Normal 3.5-5.1 [facility] Comment on above: Performed By: #### P OTASSIUM, WHOLE BLOOD ####[facility] [id number] [place] [address] [facility] SODIUM, WHOLE BLOODon 2024 SODIUM, WHOLE BLOOD Normal [facility] Comment on above: Result Comment: C^In calculable Performed By: #### S ODIUM, WHOLE BLOOD ####[facility] [id number] [place] [address] [facility] TRIGLYCERIDESon 08-16-2024 FASTING? Unknown [facility] Comment on above: Performed By: #### L [id number] ####[facility] ([facility])[address] [place] [address] Magnesium [Mass/Vol] 243 mg/dL High 40-149 [facility] Comment on above: Result Comment: TRIG LYCERIDE REFERENCE RANGE:20 YEARS AND OLDER CARDIOVASCULAR RISKLESS THAN 150 mg/dL LOW [id number] TO 199 mg/dL BORDERLINE [id number] mg/dL AND GREATER HIGH RISK Performed By: #### L [id number] ####[facility] (BEAKER)[address] [place] [address] 30on 08-15-2024 30 Normal [facility] 30 Normal [facility] BLOOD CULTUREon 08-15-2024 Bacteria identified Cx Nom (Bld) No growth at 5 days [facility] Comment on above: Order Comment: From a different site than #1. Performed By: #### L [id number] ####[facility] (BEAKER)[address] [place] [address] Basophils Auto (Bld) [#/Vol] on 08-15-2024 Basophils (Bld) [#/Vol] Automated basoph il count 0.0-0.1 [facility] Basophils/100 WBC Auto (Bld) on 08-15-2024 Basophils/100 WBC (Bld) Automated basophil % Low 0. 2-2.0 [facility] CALCIUM, IONIZEDon CALCIUM IONIZED (MMOL/L) IN BLOOD 1.23 mmol/L Normal 1.15-1.33 [facility] Comment on above: Performed By: #### C ALCIUM, IONIZED ####[facility] [id number] [place] [address] [place] CBC WITH AUTO DIFFERENTIALon 08-15-2024 Basophils (Bld) [#/Vol] 0.01 10*3/uL Normal 0.00-0.20 [facility] Comment on above: Performed By: #### L [id number] ####[facility] ([facility]AKER)[address] [place] [address] Basophils/100 WBC (Bld) 0.1 % Normal 0.0-1.0 [facility] Comment on above: Performed By: #### L [id number] ####[facility] (BEAKER)[address] [place] [address] Eosinophils (Bld) [#/Vol] 0.01 10*3/uL Normal 0.00-0.50 [facility] Comment on above: Performed By: #### L [id number] ####[facility] (BEAKER)[address] [place] [address] Eosinophils/100 WBC (Bld) 0.1 % Normal 0.0-6.0 [facility] Comment on above: Performed By: #### L [id number] ####[facility] ([facility]AKER)[address] [place] [address] Erythrocyte distribution width (RBC) [Ratio] 15.2 % High 11.5-15.0 [facility] Comment on above: Performed By: #### L [id number] ####[facility] (BEAKER)[address] [place] [address] ERYTHROCYTE MEAN CORPUSCULAR HEMOGLOBIN CONCENTRATION (G/DL) BY AUTOMATED 33.8 g/dL Normal 32.0-35.0 [facility] Comment on above: Performed By: #### L [id number] ####[facility] (BEAKER)[address] [place] [address] Hematocrit (Bld) [Volume fraction] 47.1 % Normal 39.0-55.0 [facility] Comment on above: Performed By: #### L [id number] ####[facility] (BEAKER)[address] [place] [address] Hemoglobin (Bld) [Mass/Vol] 15.9 g/dL Normal 13.0-17.0 [facility] Comment on above: Performed By: #### L [id number] ####[facility] (BEAKER)[address] [place] [address] Immature granulocytes (Bld) [#/Vol] 0.05 10*3/uL Normal 0.00-0.20 [facility] Comment on above: Performed By: #### L [id number] ####[facility] (BEAKER)[address] [place] [address] Immature granulocytes/100 WBC (Bld) 0.7 % Normal 0.0-1.0 [facility] Comment on above: Performed By: #### L [id number] ####[facility] (BEAKER)[address] [place] [address] Lymphocytes (Bld) [#/Vol] 0.54 10*3/uL Low 1.20-4.00 [facility] Comment on above: Performed By: #### L [id number] ####[facility] (BEAKER)[address] [place] [address] Lymphocytes/100 WBC (Bld) 7.2 % Low 20.0-45.0 [facility] Comment on above: Performed By: #### L [id number] ####[facility] (BEAKER)[address] [place] [address] MCH (RBC) [Entitic mass] 31.8 pg Normal 27.0-33.0 [facility] Comment on above: Performed By: #### L [id number] ####[facility] (BEAKER)[address] [place], [place] [address] MCV (RBC) [Entitic vol] 94.2 fL Normal 82.0-98.[address] [facility] Comment on above: Performed By: #### L [id number] ####[facility] (BEAKER)[address] [place] [address] Monocytes (Bld) [#/Vol] 1.23 10*3/uL High 0.10-1.00 [facility] Comment on above: Performed By: #### L [id number] ####[facility] (BEAKER)[address] [place], [place] [address] Monocytes/100 WBC (Bld) 16.3 % High 5.0-12.[address] [facility] Comment on above: Performed By: #### L [id number] ####[facility] (BEAKER)[address] [place], [place] [address] Neutrophils (Bld) [#/Vol] 5.70 10*3/uL Normal 1.60-7.60 [facility] Comment on above: Performed By: #### L [id number] ####[facility] (BEAKER)[address] [place], [place] [address] Neutrophils/100 WBC (Bld) 75.6 % High 40.0-72.0 [facility] Comment on above: Performed By: #### L [id number] ####[facility] (BEAKER)[address] [place], [place] [address] NRBC (PER 100 WBCS) BY AUTOMATED COUNT 0.3 % High 0 [facility] Comment on above: Performed By: #### L [id number] ####[facility] (BEAKER)[address] [place], [place] [address] PLATELETS (10*3/UL) IN BLOOD AUTOMATED COUNT 237 10*3/uL Normal 150-400 [facility] Comment on above: Performed By: #### L [id number] ####[facility] (BEAKER)[address] [place], [place] [address] RBC (Bld) [#/Vol] 5.00 10*6/uL Normal 4.20-5.70 [facility] Comment on above: Performed By: #### L [id number] ####[facility] ([facility])[address] [place] [address] WBC (Bld) [#/Vol] 7.54 10*3/uL Normal 4.00-10.60 [facility] Comment on above: Performed By: #### L [id number] ####[facility] ([facility])[address] [place] [address] COMPREHENSIVE METABOLIC PANE Kris 08-15-2024 Albumin [Mass/Vol] 2.9 g/dL Low 3.5-5.7 [facility] Comment on above: Performed By: #### L [id number] ####[facility] ([facility])[address] [place] [address] ALP [Catalytic activity/Vol] 58 U/L Normal 34-104 [facility] Comment on above: Performed By: #### L [id number] ####[facility] ([facility])[address] [place] [address] ALT [Catalytic activity/Vol] 21 U/L Normal 7-52 [facility] Comment on above: Performed By: #### L [id number] ####[facility] ([facility])[address] [place] [address] Anion gap [Moles/Vol] 13 mmol/L Normal 7-20 [facility] Comment on above: Performed By: #### L [id number] ####[facility] ([facility])[address] [place] [address] AST [Catalytic activity/Vol] 29 U/L Normal 13-39 [facility] Comment on above: Performed By: #### L [id number] ####[facility] ([facility])[address] [place] [address] Bilirubin [Mass/Vol] 1.0 mg/dL Normal 0.3-1.0 [facility] Comment on above: Performed By: #### L [id number] ####[facility] (BEAKER)[address] [place] [address] Calcium [Mass/Vol] 8.2 mg/dL Low 8.6-10.3 [facility] Comment on above: Performed By: #### L [id number] ####[facility] (BEAKER)[address] [place] [address] Chloride [Moles/Vol] 90 mmol/L Low 98-107 [facility] Comment on above: Performed By: #### L [id number] ####[facility] (BEAKER)[address] [place] [address] CO2 [Moles/Vol] 32 mmol/L High 21-31 [facility] Comment on above: Performed By: #### L [id number] ####[facility] (BEAKER)[address] [place] [address] Creatinine [Mass/Vol] 1.17 mg/dL Normal 0.70-1.30 [facility] Comment on above: Performed By: #### L [id number] ####[facility] (BEAKER)[address] [place] [address] GLOMERULAR FILTRATION RATE ML/MIN/1.73 SQ M.PREDICTED 69.2 mL/min/1.73m*2 Normal >60.0 [facility] Comment on above: Result Comment: The [facility]???s estimated glomerular filtration rate (eGFR) will no [...] MEDICAL CENTER LAB (BEAKER)[address] [place] [address] Glucose [Mass/Vol] 219 mg/dL High 70-100 [facility] Comment on above: Performed By: #### L [id number] ####[facility] ([facility])[address] [place] [address] Potassium [Moles/Vol] 4.0 mmol/L Normal 3.5-5.1 [facility] Comment on above: Performed By: #### L [id number] ####[facility] ([facility])[address] [place] [address] Protein [Mass/Vol] 5.5 g/dL Low 6.0-8.3 [facility] Comment on above: Performed By: #### L [id number] ####[facility] ([facility])[address] [place] [address] Sodium [Moles/Vol] 131 mmol/L Low 136-145 [facility] Comment on above: Performed By: #### L [id number] ####[facility] ([facility])[address] [place] [address] Urea nitrogen [Mass/Vol] 42 mg/dL High 7-25 [facility] Comment on above: Performed By: #### L [id number] ####[facility] ([facility])[address] [place] [address] UREA NITROGEN/CREATININE (MASS RATIO) IN SER/PLAS 35.9 Normal [facility] Comment on above: Performed By: #### L [id number] ####[facility] ([facility])[address] [place] [address] Eosinophils/100 WBC Auto (Bl d)on 08-15-2024 Eosinophils/100 WBC (Bld) Automated eosinophil % Low 0.9-7.0 [facility] Erythrocyte distribution wid th Auto (RBC) [Ratio]on 08-15-2024 Erythrocyte distribution width (RBC) [Ratio] Erythrocyte distribution width [Ratio] by Automated count High 11.0-15.0 [facility] Estimated glomerular filtrat ion rate (GFR) non- Americanon 08-15-2024 GFR/1.73 sq M.predicted among non-blacks MDRD (S/P/Bld) [Vol rate/Area] Estimated glomerular filtration rate (GFR) non- Low >=60 mL/min/1.73 m 2 [facility] Globulin Calc (S) [Mass/Vol] on 08-15-2024 Globulin (S) [Mass/Vol] Serum globulin measurement by calculation (mass/volume) [facility] HEMOGLOBIN A1Con 08-15-2024 Glucose [Mass/Vol] 189 mg/dL Normal [facility] Comment on above: Performed By: #### L [id number] ####[facility] (BEAKER)[address] [place] [address] HbA1c (Bld) [Mass fraction] 8.2 % High 4.0-6.0 [facility] Comment on above: Performed By: #### L [id number] ####[facility] (BEAKER)[address] [place] [address] HPon 08-15-2024 HP Normal [facility] Hematocrit Auto (Bld) [Volum e fraction]on 08-15-2024 Hematocrit (Bld) [Volume fraction] Hematocrit [Volume Fraction] of Blood by Automated count 42.0-54.0 [facility] Hemoglobin [Mass/volume] in Bloodon 08-15-2024 Hemoglobin (Bld) [Mass/Vol] Hemoglobin [Mass/volume] in Blood 14.0-18.0 [facility] LIPASEon 08-15-2024 LIPASE (U/L) IN SER/PLAS 28 U/L Normal 11-82 [facility] Comment on above: Result Comment: M-CH EMISTRY SPECIMEN MODERATELY HEMOLYZED RESULTS MAY NOT BE ACCURATE Performed By: #### L [id number] ####[facility] (BEAKER)[address] [place] [address] Laboratory - Chemistry and C hemistry - challengeon 08-15-2024 HCO3 (Bld) [Moles/Vol] 34.7 mmol/L High 22.0-26.0 [facility] Albumin [Mass/Vol] 2.6 g/dL Low 3.4-5.0 [facility] ALP [Catalytic activity/Vol] 81 U/L 46-116 [facility] ALT [Catalytic activity/Vol] 37 U/L 16-63 [facility] AST [Catalytic activity/Vol] 28 U/L 15-37 [facility] Bilirubin [Mass/Vol] 1.2 mg/dL High 0.2-1.0 [facility] Calcium [Mass/Vol] 9.2 mg/dL 8.5-10.1 [facility] Chloride [Moles/Vol] 101 mmol/L 98-107 [facility] CO2 [Moles/Vol] 35.4 mmol/L High 21.0-32.0 [facility] Creatinine [Mass/Vol] 1.66 mg/dL High 0.70-1.30 [facility] GFR/1.73 sq M.predicted MDRD (S/P/Bld) [Vol rate/Area] 51 mL/min/{1.73_m2} Low >=60 mL/min/1.73 m 2 [facility] Glucose [Mass/Vol] 268 mg/dL High 74-106 [facility] Potassium [Moles/Vol] 3.8 mmol/L 3.5-5.1 [facility] Protein [Mass/Vol] 6.3 g/dL Low 6.4-8.2 [facility] Sodium [Moles/Vol] 143 mmol/L 136-145 [facility] Urea nitrogen [Mass/Vol] 52.0 mg/dL High 7.0-18.0 [facility] Urea nitrogen/Creatinine [Mass ratio] 31.3 mg/mg [facility] Laboratory - Hematology and Cell countson 08-15-2024 Immature granulocytes/100 WBC (Bld) 0.8 % High 0.0-0.5 [facility] Leukocytes [#/volume] correc beatris for nucleated erythrocytes in Blood by Automated counon 08-15-2024 WBC corrected for nucl RBC Auto (Bld) [#/Vol] Leukocytes [#/volume] corrected for nucleated erythrocytes in Blood by Automated coun 4.0-11.0 [facility] Lymphocytes Auto (Bld) [#/Vo l]on 08-15-2024 Lymphocytes (Bld) [#/Vol] Lymphocytes [#/volume] in Blood by Automated count Low 1.2-3.8 [facility] Lymphocytes/100 WBC Auto (Bl d)on 08-15-2024 Lymphocytes/100 WBC (Bld) Lymphocytes/100 leukocytes in Blood by Automated count Low 20.5-60.0 [facility] MAGNESIUMon 08-15-2024 Magnesium [Mass/Vol] 1.6 mg/dL Low 1.9-2.7 [facility] Comment on above: Performed By: #### L [id number] ####[facility] (BEAKER)[address] [place] [address] MCH Auto (RBC) [Entitic mass ]on 08-15-2024 MCH (RBC) [Entitic mass] MCH [Entitic ma ss] by Automated count 25.9-34.0 [facility] MCHC Auto (RBC) [Mass/Vol]on 08-15-2024 MCHC (RBC) [Mass/Vol] MCHC [Mass/volume] by Automated count 29.9-35.2 [facility] MCV Auto (RBC) [Entitic vol] on 08-15-2024 MCV (RBC) [Entitic vol] MCV [Entitic vol ume] by Automated count 80.0-94.0 [facility] MRSA/MSSA DNA NASALon 2024 MRSA DNA Negative Normal Negative [facility] Comment on above: Order Comment: Testi ng [...] preclude nasal colonization. Performed By: #### L [id number] ####[facility] (BEAKER)[address] [place] [address] MSSA DNA Negative Normal Negative [facility] Comment on above: Order Comment: Testi ng [...] preclude nasal colonization. Performed By: #### L [id number] ####[facility] (BEAKER)[address] [place] [address] Monocytes Auto (Bld) [#/Vol] on 08-15-2024 Monocytes (Bld) [#/Vol] Automated blood monocyte count 0.3-0.8 [facility] Monocytes/100 WBC Auto (Bld) on 08-15-2024 Monocytes/100 WBC (Bld) Automated monocyte % 1. 7-12.0 [facility] Neutrophils Auto (Bld) [#/Vo l]on 08-15-2024 Neutrophils (Bld) [#/Vol] Neutrophils [#/volume] in Blood by Automated count 1.4-6.5 [facility] Neutrophils/100 WBC Auto (Bl d)on 08-15-2024 Neutrophils/100 WBC (Bld) Automated neutrophil % High 43.0-75.0 [facility] No Panel Informationon 08-15 Avinash Test Positive POSITIVE [facility] Arterial Blood Base Excess 11.0 mmol/L High <2.0-2.0 [facility] Arterial Blood Oxygen Saturation 97.0 % [facility] Arterial Blood Partial Pressure CO2 47.8 mm[Hg] High 35.0-45.0 [facility] Arterial Blood Partial Pressure O2 81.0 mm[Hg] 80.0-100.0 [facility] Arterial Blood pH 7.469 High 7.350-7.450 [facility] Blood Gas PEEP 8 [facility] Blood Gas Sample Site RIGHT RADIAL F [facility] Blood Gas Set Respiration Rate 22 [facility] Blood Gas Tidal Volume 600 [facility] Blood Gas Ventilator Mode AC/VC [facility] FiO2 90 % [facility] Oxygen Delivery Device VENT Fi [facility] Reference Lab Test #2 Result 13.8 [facility] Eosinophils # (Auto) 0.0 10 3/uL 0.0-0.7 [facility] Immature Granulocyte # (Auto) 0.06 10 3/uL High 0.00-0.03 [facility] PHOSPHORUSon 08-15-2024 Magnesium [Mass/Vol] 2.7 mg/dL Normal 2.5-5.0 [facility] Comment on above: Performed By: #### L [id number] ####[facility] ([facility])[address] [facility] [place] [address] POCT GLUCOSE METER UNSOLICIT ED RESULTSon 08-15-2024 Glucose [Mass/Vol] 249 mg/dL High 70-105 [facility] Comment on above: Order Comment: Waive d Testing in the ED is performed under the ED CLIA certificate #[id number]. Result Comment: oyod er Performed By: #### L [id number] ####[facility] ([facility])[address] [employer] [address] Glucose [Mass/Vol] 217 mg/dL High 70-105 [facility] Comment on above: Order Comment: Waive d Testing in the ED is performed under the ED CLIA certificate #[id number]. Result Comment: elena [email or web address] Performed By: #### L [id number] ####[facility] ([employer])[address] [employer] [address] Glucose [Mass/Vol] 233 mg/dL High 70-105 [facility] Comment on above: Order Comment: Waive d Testing in the ED is performed under the ED CLIA certificate #[id number]. Result Comment: [email or web address] [email or web address] Performed By: #### L [id number] ####[facility] ([employer])[address] [place] [address] POTASSIUM, WHOLE BLOODon Potassium [Moles/Vol] 3.4 mmol/L Low 3.5-5.1 [facility] Comment on above: Performed By: #### P OTASSIUM, WHOLE BLOOD ####[facility] [id number] [place] [address] [place] Platelet mean volume Auto (B ld) [Entitic vol]on 08-15-2024 Platelet mean volume (Bld) [Entitic vol] Platelet mean volume [Entitic volume] in Blood by Automated count 9.5-13.5 [facility] Platelets Auto (Bld) [#/Vol] on 08-15-2024 Platelets (Bld) [#/Vol] Platelets [#/vol ume] in Blood by Automated count 150-450 [facility] RBC Auto (Bld) [#/Vol]on RBC (Bld) [#/Vol] Erythrocytes [#/volume] in Blood by Automated count 4.70-6.10 [facility] SODIUM, WHOLE BLOODon 2024 SODIUM, WHOLE BLOOD 136 Normal 136-145 [facility] Comment on above: Performed By: #### S ODIUM, WHOLE BLOOD ####[facility] [id number] [place] [address] [facility] Serum or plasma albumin/glob ulin mass ratioon 08-15-2024 Albumin/Globulin [Mass ratio] Serum or plasma albumin/globulin mass ratio [facility] Serum or plasma anion gap de terminationon 08-15-2024 Anion gap [Moles/Vol] Serum or plasma an ion gap determination [facility] TRIGLYCERIDESon 08-15-2024 FASTING? unknown Normal [facility] Comment on above: Order Comment: Monit or triglycerides while patient is on propofol. Consult Nutrition if greater than 500 mg/dL. Performed By: #### L [id number] ####[facility] (BEAKER)[address] [place] [address] Magnesium [Mass/Vol] 3920 mg/dL High 40-149 [facility] Comment on above: Order Comment: Monit or triglycerides while patient is on propofol. Consult Nutrition if greater than 500 mg/dL. Result Comment: TRIG LYCERIDE REFERENCE RANGE:20 YEARS AND OLDER CARDIOVASCULAR RISKLESS THAN 150 mg/dL LOW [id number] TO 199 mg/dL BORDERLINE [id number] mg/dL AND GREATER HIGH RISK Performed By: #### L [id number] ####[facility] (BEAKER)[address] [place] [address] TROPONIN Ion 08-15-2024 Troponin I.cardiac [Mass/Vol] 0.04 ng/mL Normal 0.00-0.04 [facility] Comment on above: Performed By: #### L [id number] ####[facility] ([facility])[address] [place] [address] URINALYSIS WITH MICROSCOPICo n 08-15-2024 BILIRUBIN, TOTAL PRESENCE IN URINE Negative Normal Negative [facility] Comment on above: Performed By: #### L [id number] ####[facility] ([facility])[address] [place] [address] Clarity (U) Clear Normal Clear [facility] Comment on above: Performed By: #### L [id number] ####[facility] ([facility])[address] [place] [address] Color (U) Colorless Normal Colorless, Yellow, Light-Yello w [facility] Comment on above: Performed By: #### L [id number] ####[facility] ([facility])[address] [place] [address] GLUCOSE (MG/DL) IN URINE Normal Normal Normal [facility] Comment on above: Performed By: #### L [id number] ####[facility] ([facility])[address] [place] [address] HEMOGLOBIN PRESENCE IN URINE Small Abnormal Negative [facility] Comment on above: Performed By: #### L [id number] ####[facility] ([facility])[address] [place] [address] Ketones Ql (U) Negative Normal Negative [facility] Comment on above: Performed By: #### L [id number] ####[facility] ([facility])[address] [place] [address] LEUKOCYTE ESTERASE PRESENCE IN URINE BY TEST STRIP Negative Normal Negative [facility] Comment on above: Performed By: #### L [id number] ####[facility] ([facility])[address] [place] [address] MUCUS (#/LPF) IN URINE SEDIMENT Occasional Normal None Seen, Occasional, Few [facility] Comment on above: Performed By: #### L [id number] ####[facility] (BEAKER)[address] [place] [address] NITRITE PRESENCE IN URINE Negative Normal Negative [facility] Comment on above: Performed By: #### L [id number] ####[facility] (BEAKER)[address] [place] [address] pH (U) 5.5 [pH] Normal 5.0-8.0 [facility] Comment on above: Performed By: #### L [id number] ####[facility] (BEAKER)[address] [place] [address] Protein (U) [Mass/Vol] Negative Normal [facility] Comment on above: Performed By: #### L [id number] ####[facility] (BEAKER)[address] [place] [address] RBC (#/HPF) IN URINE SEDIMENT 11-20 Abnormal None Seen, 0-2 [facility] Comment on above: Performed By: #### L [id number] ####[facility] (BEAKER)[address] [place] [address] Specific gravity (U) [Rel density] 1.011 Normal 1.010-1.030 [facility] Comment on above: Performed By: #### L [id number] ####[facility] (BEAKER)[address] [place] [address] SQUAMOUS EPITHELIAL CELLS (#/LPF) IN URINE SEDIMENT None Seen Normal None Seen, Occasional, Few [facility] Comment on above: Performed By: #### L [id number] ####[facility] (BEAKER)[address] [place] [address] UROBILINOGEN (MG/DL) IN URINE Normal Normal Normal [facility] Comment on above: Performed By: #### L [id number] ####[facility] (BEAKER)[address] [place] [address] WBC (LEUKOCYTE) (#/HPF) IN URINE SEDIMENT 3-5 Abnormal None Seen, 0-2 [facility] Comment on above: Performed By: #### L [id number] ####[facility] (BEAKER)[address] [place] [address] Basophils Auto (Bld) [#/Vol] on 08-14-2024 Basophils (Bld) [#/Vol] Automated basoph il count 0.0-0.1 [facility] Basophils/100 WBC Auto (Bld) on 08-14-2024 Basophils/100 WBC (Bld) Automated basophil % 0. 2-2.0 [facility] Eosinophils/100 WBC Auto (Bl d)on 08-14-2024 Eosinophils/100 WBC (Bld) Automated eosinophil % Low 0.9-7.0 [facility] Erythrocyte distribution wid th Auto (RBC) [Ratio]on 08-14-2024 Erythrocyte distribution width (RBC) [Ratio] Erythrocyte distribution width [Ratio] by Automated count High 11.0-15.0 [facility] Estimated glomerular filtrat ion rate (GFR) non- Americanon 08-14-2024 GFR/1.73 sq M.predicted among non-blacks MDRD (S/P/Bld) [Vol rate/Area] Estimated glomerular filtration rate (GFR) non- Low >=60 mL/min/1.73 m 2 [facility] Globulin Calc (S) [Mass/Vol] on 08-14-2024 Globulin (S) [Mass/Vol] Serum globulin measurement by calculation (mass/volume) [facility] Hematocrit Auto (Bld) [Volum e fraction]on 08-14-2024 Hematocrit (Bld) [Volume fraction] Hematocrit [Volume Fraction] of Blood by Automated count 42.0-54.0 [facility] Hemoglobin [Mass/volume] in Bloodon 08-14-2024 Hemoglobin (Bld) [Mass/Vol] Hemoglobin [Mass/volume] in Blood 14.0-18.0 [facility] Laboratory - Chemistry and C hemistry - challengeon 08-14-2024 HCO3 (Bld) [Moles/Vol] 30.8 mmol/L High 22.0-26.0 [facility] Albumin [Mass/Vol] 2.4 g/dL Low 3.4-5.0 [facility] ALP [Catalytic activity/Vol] 82 U/L 46-116 [facility] ALT [Catalytic activity/Vol] 39 U/L 16-63 [facility] AST [Catalytic activity/Vol] 24 U/L 15-37 [facility] Bilirubin [Mass/Vol] 1.1 mg/dL High 0.2-1.0 [facility] Calcium [Mass/Vol] 8.6 mg/dL 8.5-10.1 [facility] Chloride [Moles/Vol] 102 mmol/L 98-107 [facility] CO2 [Moles/Vol] 32.4 mmol/L High 21.0-32.0 [facility] Creatinine [Mass/Vol] 1.64 mg/dL High 0.70-1.30 [facility] GFR/1.73 sq M.predicted MDRD (S/P/Bld) [Vol rate/Area] 51 mL/min/{1.73_m2} Low >=60 mL/min/1.73 m 2 [facility] Glucose [Mass/Vol] 194 mg/dL High 74-106 [facility] Potassium [Moles/Vol] 3.9 mmol/L 3.5-5.1 [facility] Protein [Mass/Vol] 5.8 g/dL Low 6.4-8.2 [facility] Sodium [Moles/Vol] 140 mmol/L 136-145 [facility] Urea nitrogen [Mass/Vol] 54.0 mg/dL High 7.0-18.0 [facility] Urea nitrogen/Creatinine [Mass ratio] 32.9 mg/mg [facility] Laboratory - Hematology and Cell countson 08-14-2024 Immature granulocytes/100 WBC (Bld) 0.8 % High 0.0-0.5 [facility] Leukocytes [#/volume] correc beatris for nucleated erythrocytes in Blood by Automated counon 08-14-2024 WBC corrected for nucl RBC Auto (Bld) [#/Vol] Leukocytes [#/volume] corrected for nucleated erythrocytes in Blood by Automated coun 4.0-11.0 [facility] Lymphocytes Auto (Bld) [#/Vo l]on 08-14-2024 Lymphocytes (Bld) [#/Vol] Lymphocytes [#/volume] in Blood by Automated count Low 1.2-3.8 [facility] Lymphocytes/100 WBC Auto (Bl d)on 08-14-2024 Lymphocytes/100 WBC (Bld) Lymphocytes/100 leukocytes in Blood by Automated count Low 20.5-60.0 [facility] MCH Auto (RBC) [Entitic mass ]on 08-14-2024 MCH (RBC) [Entitic mass] MCH [Entitic ma ss] by Automated count 25.9-34.0 [facility] MCHC Auto (RBC) [Mass/Vol]on 08-14-2024 MCHC (RBC) [Mass/Vol] MCHC [Mass/volume] by Automated count 29.9-35.2 [facility] MCV Auto (RBC) [Entitic vol] on 08-14-2024 MCV (RBC) [Entitic vol] MCV [Entitic vol ume] by Automated count High 80.0-94.0 [facility] Monocytes Auto (Bld) [#/Vol] on 08-14-2024 Monocytes (Bld) [#/Vol] Automated blood monocyte count 0.3-0.8 [facility] Monocytes/100 WBC Auto (Bld) on 08-14-2024 Monocytes/100 WBC (Bld) Automated monocyte % 1. 7-12.0 [facility] Neutrophils Auto (Bld) [#/Vo l]on 08-14-2024 Neutrophils (Bld) [#/Vol] Neutrophils [#/volume] in Blood by Automated count 1.4-6.5 [facility] Neutrophils/100 WBC Auto (Bl d)on 08-14-2024 Neutrophils/100 WBC (Bld) Automated neutrophil % High 43.0-75.0 [facility] No Panel Informationon 08-14 Avinash Test Positive POSITIVE [facility] Arterial Blood Base Excess 6.2 mmol/L High <2.0-2.0 [facility] Arterial Blood Oxygen Saturation 93.3 % [facility] Arterial Blood Partial Pressure CO2 48.3 mm[Hg] High 35.0-45.0 [facility] Arterial Blood Partial Pressure O2 62.0 mm[Hg] Low 80.0-100.0 [facility] Arterial Blood pH 7.413 7.350-7.450 [facility] Blood Gas PEEP +8 [facility] Blood Gas Sample Site RIGHT RADIAL F [facility] Blood Gas Set Respiration Rate 22 [facility] Blood Gas Tidal Volume 600 Fi [facility] Blood Gas Ventilator Mode AC [facility] FiO2 100 % [facility] Oxygen Delivery Device VENT Fi [facility] Eosinophils # (Auto) 0.0 10 3/uL 0.0-0.7 [facility] Immature Granulocyte # (Auto) 0.05 10 3/uL High 0.00-0.03 [facility] Platelet mean volume Auto (B ld) [Entitic vol]on 08-14-2024 Platelet mean volume (Bld) [Entitic vol] Platelet mean volume [Entitic volume] in Blood by Automated count 9.5-13.5 [facility] Platelets Auto (Bld) [#/Vol] on 08-14-2024 Platelets (Bld) [#/Vol] Platelets [#/vol ume] in Blood by Automated count 150-450 [facility] RBC Auto (Bld) [#/Vol]on RBC (Bld) [#/Vol] Erythrocytes [#/volume] in Blood by Automated count 4.70-6.10 [facility] Serum or plasma albumin/glob ulin mass ratioon 08-14-2024 Albumin/Globulin [Mass ratio] Serum or plasma albumin/globulin mass ratio [facility] Serum or plasma anion gap de terminationon 08-14-2024 Anion gap [Moles/Vol] Serum or plasma an ion gap determination [facility] URINE CULTURE, ROUTINEon Bacteria identified Cx Nom (U) Urine Culture, Routine [facility] Bacteria identified Cx Nom (U) No growth [facility] Bacteria identified Cx Nom (U) [facility] Bacteria identified Cx Nom (U) [address] [place], [place] [id number] [facility] Bacteria identified Cx Nom (U) Dosier Operator: Tyron Saeed PhD, Phone: [phone] [facility] Basophils Auto (Bld) [#/Vol] on 04-08-2024 Basophils (Bld) [#/Vol] 0.1 10 3/uL 0.0-0.1 [facility] Basophils/100 WBC Auto (Bld) on 04-08-2024 Basophils/100 WBC (Bld) 0.4 % 0.2-2.0 [facility] Eosinophils/100 WBC Auto (Bl d)on 04-08-2024 Eosinophils/100 WBC (Bld) 1.7 % 0.9-7.0 [facility] Erythrocyte distribution wid th Auto (RBC) [Ratio]on 04-08-2024 Erythrocyte distribution width (RBC) [Ratio] 13.9 % 11.0-15.0 [facility] Estimated glomerular filtrat ion rate (GFR) non- Americanon 04-08-2024 GFR/1.73 sq M.predicted among non-blacks MDRD (S/P/Bld) [Vol rate/Area] mL/min/{1.73_m2} >=60 [facility] Hematocrit Auto (Bld) [Volum e fraction]on 04-08-2024 Hematocrit (Bld) [Volume fraction] 45.1 % 42.0-54.0 [facility] Hemoglobin [Mass/volume] in Bloodon 04-08-2024 Hemoglobin (Bld) [Mass/Vol] 14.7 g/dL 14.0-18.0 [facility] Kris 04-08-2024 L Specimen: [id number] Received: 04/09/24 Status: TAMI Wolff Num: [id number] Spec Type: Surgical Subm Dr: Rc Curtis DPM, MS Tissues: A Extremity - Amputation, Non-Traumatic (R FOREFOOT) B Extremity - Amputation, Non-Traumatic (R FIRST METATARSEL) Procedures: HE/5, Gross/Micro L5/2, Decalcification/2 Age/ Patient Sex Location Account Attending Physician Tyler Smith 63/M [facility] [id number] Rc Curtis DPM, MS SPEC NUM: [id number] RECD: 04/09/24 STATUS: TAMI WOLFF NUM: [id number] KATHIE: 04/08/[address]: Rc Curtis,CARLOS, MS ENTERED: 04/09/24-1501 [facility] DR: Ekta Heath SPEC TYPE: Surgical DEPT: ALEJANDRO JACOBS ENTERED BY: [id number] RECV BY: [id number] ORDERED: HE/5, Gross/Micro L5/2, Decalcification/2 ORDERED: HE/5, [...] of the ulcerated lesion reveals -------- Specimen: [id number] Received: 04/09/24 Status: TAMI Darlene Num: [id number] Spec Type: Surgical Subm Dr: Rc Curtis DPM, MS Tissues: A Extremity - Amputation, Non-Traumatic (R FOREFOOT) B Extremity - Amputation, Non-Traumatic (R FIRST METATARSEL) Procedures: HE/5, Gross/Micro L5/2, Decalcification/2 -------- Patient: Tyler Smith [id number] (Continued) -------- Specimen: [id number] Received: 04/09/24 (Continued) Gross Description (Continued) Signed (signature on file) Genaro Zamora MD 04/19/24 1844 -------- Specimen: [id number] Received: 04/09/24 Status: TAMI Wolff Num: [id number] Spec Type: Surgical Subm Dr: Rc Curtis,CARLOS, MS Tissues: A Extremity - Amputation, Non-Traumatic (R FOREFOOT) B Extremity - Amputation, Non-Traumatic (R FIRST METATARSEL) Procedures: DUNCAN/Brianna, Gross/Micro L5/2, Decalcification/2 -------- Patient: Tyler Smith [id number] (Continued) -------- Specimen: [id number] Received: 04/09/24 (Continued) Gross Description (Continued) exposed bone. The lesion is abutting the soft tissue margin. The resection margin of the metatarsals are inked first blue, second green, third yellow, fourth orange, fifth red. Tester Operator Helper sections are as follows: A1 soft tissue margin en face A2 first metatarsal bone margin en face, (submitted in decal before routine processing) A3 remaining metatarsal bone margins en face, (submitted in decal before routine processing) A4 surgical sales representative section of the lesion with [...] performed supporting the above interpretation CPT Codes [id number] x2 -------- -------- Specimen: [id number] Received: 04/09/24 Status: TAMI Wolff Num: [id number] Spec (more content not included)... Normal [facility] Laboratory - Chemistry and C hemistry - challengeon 04-08-2024 Calcium [Mass/Vol] 10.6 mg/dL High 8.5-10.1 [facility] Chloride [Moles/Vol] 98 mmol/L 98-107 [facility] [facility] CO2 [Moles/Vol] 34.6 mmol/L High 21.0-32.0 [facility] Creatinine [Mass/Vol] 1.03 mg/dL 0.70-1.30 [facility] GFR/1.73 sq M.predicted MDRD (S/P/Bld) [Vol rate/Area] mL/min/{1.73_m2} >=60 [facility] Glucose [Mass/Vol] 178 mg/dL High 74-106 [facility] Potassium [Moles/Vol] 4.4 mmol/L 3.5-5.1 [facility] Sodium [Moles/Vol] 135 mmol/L Low 136-145 [facility] Urea nitrogen [Mass/Vol] 16.0 mg/dL 7.0-18.0 [facility] Urea nitrogen/Creatinine [Mass ratio] 15.5 mg/mg [facility] Laboratory - Hematology and Cell countson 04-08-2024 Immature granulocytes/100 WBC (Bld) 1.1 % High 0.0-0.5 [facility] Leukocytes [#/volume] correc beatris for nucleated erythrocytes in Blood by Automated counon 04-08-2024 WBC corrected for nucl RBC Auto (Bld) [#/Vol] 13.3 10 3/uL High 4.0-11.0 [facility] Lymphocytes Auto (Bld) [#/Vo l]on 04-08-2024 Lymphocytes (Bld) [#/Vol] 1.7 10 3/uL 1.2-3.8 [facility] Lymphocytes/100 WBC Auto (Bl d)on 04-08-2024 Lymphocytes/100 WBC (Bld) 12.5 % Low 20.5-60.0 [facility] MCH Auto (RBC) [Entitic mass ]on 04-08-2024 MCH (RBC) [Entitic mass] 31.1 pg 25.9-34.0 [facility] MCHC Auto (RBC) [Mass/Vol]on 04-08-2024 MCHC (RBC) [Mass/Vol] 32.6 g/dL 29.9-35.2 [facility] MCV Auto (RBC) [Entitic vol] on 04-08-2024 MCV (RBC) [Entitic vol] 95.6 fL High 80.0-94.0 [facility] Monocytes Auto (Bld) [#/Vol] on 04-08-2024 Monocytes (Bld) [#/Vol] 1.0 10 3/uL High 0.3-0.8 [facility] Monocytes/100 WBC Auto (Bld) on 04-08-2024 Monocytes/100 WBC (Bld) 7.3 % 1.7-12.0 [facility] Neutrophils Auto (Bld) [#/Vo l]on 04-08-2024 Neutrophils (Bld) [#/Vol] 10.3 10 3/uL High 1.4-6.5 [facility] Neutrophils/100 WBC Auto (Bl d)on 04-08-2024 Neutrophils/100 WBC (Bld) 77.0 % High 43.0-75.0 [facility] No Panel InformationOrdered By: Rc Curtis on 04-08-2024 Acid Fast Smear [facility] AFB Specimen Processing [facility] Anaerobic Cult, Extended Incub [facility] Tissue Culture [facility] No Panel Informationon 04-08 Fungal Smear Result \R\ Fungus Stain [facility] Gram Stain Result 1 \R\ Gram Stain Result [facility] Miscellaneous Test Comment See comment [facility] Comment on above: Specimen Source: ELENA TRT - Foot Right - Foot Rt - 604.000 Eosinophils # (Auto) 0.2 10 3/uL 0.0-0.7 [facility] Immature Granulocyte # (Auto) 0.15 10 3/uL High 0.00-0.03 [facility] Platelet mean volume Auto (B ld) [Entitic vol]on 04-08-2024 Platelet mean volume (Bld) [Entitic vol] 9.8 fL 9.5-13.5 [facility] Platelets Auto (Bld) [#/Vol] on 04-08-2024 Platelets (Bld) [#/Vol] 482 10 3/uL High 150-450 [facility] RBC Auto (Bld) [#/Vol]on RBC (Bld) [#/Vol] 4.72 10 6/uL 4.70-6.10 [facility] Serum or plasma anion gap de terminationon 04-08-2024 Anion gap [Moles/Vol] 6.8 mmol/L [facility] ALL CBC WITH AUTO DIFFon BASOPHILS ABSOLUTE AUTO 0.1 [facility] Basophils/100 WBC (Bld) 0.6 % 0.2 - 2.0 % [facility] Eosinophils/100 WBC (Bld) 2.1 % 0.9 - 7.0 % [facility] Erythrocyte distribution width (RBC) [Ratio] 14.0 % 11.0 - 15.0 % [facility] Hematocrit (Bld) [Volume fraction] 41.9 % Low 42.0 - 54.0 % [facility] Hemoglobin (Bld) [Mass/Vol] 13.7 g/dL Low 14.0 - 18.0 g/dL [facility] IMMATURE GRANULOCYTES ABS AUTO 0.46 High [facility] Immature granulocytes/100 WBC (Bld) 2.9 % High 0.0 - 0.5 % [facility] Interpretation and review of laboratory results Abnormal [facility] LYMPHOCYTES ABSOLUTE AUTO 2.3 [facility] Lymphocytes/100 WBC (Bld) 14.7 % Low 20.5 - 60.0 % [facility] MCH (RBC) [Entitic mass] 31.5 pg 25. 9 - 34.0 pg [facility] MCHC (RBC) [Mass/Vol] 32.7 g/dL 29.9 - 35.2 g/dL [facility] MCV (RBC) [Entitic vol] 96.3 fL High 80.0 - 94.0 fL [facility] MONOCYTES ABSOLUTE AUTO 1.2 High [facility] Monocytes/100 WBC (Bld) 7.8 % 1.7 - 12.0 % [facility] NEUTROPHILS ABSOLUTE AUTO 11.4 High [facility] Neutrophils/100 WBC (Bld) 71.9 % 43.0 - 75.0 % [facility] Platelet mean volume (Bld) [Entitic vol] 10.2 fL 9.5 - 13.5 fL [facility] EO # 0.3 [facility] PLT 475 High [facility] RBC 4.35 Low [facility] WBC 15.8 High [facility] CLINISYNC [facility] Kris 03-29-2024 L Specimen: [id number] Received: 03/29/24 Status: TAMI Wolff Num: [id number] Spec Type: Surgical Subm Dr: Rc Curtis DPM, MS Tissues: A Bone Fragments - Other than Path Fracture (R 1 METARSAL BONE) Procedures: HE, Gross/Micro L3, Decalcification Age/ Patient Sex Location Account Attending Physician Tyler Smith W 63/M [place]ELL [id number] Rc Curtis DPM, MS SPEC NUM: [id number] RECD: 03/29/24 STATUS: TAMI WOLFF NUM: [id number] KATHIE: 03/29/[address]: Rc Curtis DPM, MS ENTERED: 03/29/24 [facility] DR: Ekta Heath SPEC TYPE: Surgical DEPT: ALEJANDRO JACOBS ENTERED BY: [id number] RECV BY: [id number] ORDERED: HE, Gross/Micro L3, Decalcification ORDERED: HE, [...] performed supporting the above interpretation -------- Specimen: [id number] Received: 03/29/24 Status: TAMI Wolff Num: [id number] Spec Type: Surgical Subm Dr: Rc Curtis,DPShantell, MS Tissues: A Bone Fragments - Other than Path Fracture (R 1 METARSAL BONE) Procedures: DUNCAN, Gross/Micro L3, Decalcification -------- Patient: Tyler Smith [id number] (Continued) -------- Specimen: [id number] Received: 03/29/24 (Continued) Signed (signature on file) Genaro Zamora MD 04/05/24 1708 -------- Specimen: [id number] Received: 03/29/24 Status: TAMI Wolff Num: [id number] Spec Type: Surgical Subm Dr: Rc Curtis,CARLOS, MS Tissues: A Bone Fragments - Other than Path Fracture (R 1 METARSAL BONE) Procedures: DUNCAN, Gross/Micro L3, Decalcification -------- Patient: Tyler Smith [id number] (Continued) -------- Specimen: [id number] Received: 03/29/24 (Continued) CPT Codes [id number] -------- -------- Specimen: [id number] Received: 03/29/24 Status: TAMI Wolff Num: [id number] Spec Type: Surgical Subm Dr: Rc Curtis,DPShantell, MS Tissues: A Bone Fragments - Other than Path Fracture (R 1 METARSAL BONE) Procedures: HE, Gross/Micro L3, Decalcification -------- Patient: Tyler Smith [id number] (Continued) -------- Signed (signature on file) Genaro Zamora MD 04/05/24 1708 Normal [facility] XR FOOT LT MIN 3 [...] by: Sukhdev PARKS Date: 2022-07-14 23:08 Normal [facility] GLYCOHEMOGLOBIN A1Con 2021 ADA RECOMMENDATION SEE BELOW Normal [facility] Comment on above: Result Comment: ADA RECOMMENDED LIMIT 4.0 - 6.0 ADA THERAPEUTIC TARGET < 7.0 ACTION SUGGESTED > 7.0 Performed By: #### A 1C #### [facility] [address] [address] [address] Jennifer Zamora Glucose [Mass/Vol] 212 mg/dL Normal [facility] Comment on above: Performed By: #### A 1C #### [facility] [address] [address] [address] Jennifer Zamora HbA1c (Bld) [Mass fraction] 9.0 % Critically high 4.5-6.2 [facility] Comment on above: Performed By: #### A 1C #### [facility] [address] [place] [address] Dr. Jennifer Zamora PROF 14(COMP METB)on 022 Albumin [Mass/Vol] 3.4 g/dL Normal 3.4-5.0 [facility] Comment on above: Performed By: #### C MP #### [facility] [address] [place] [address] Dr. Jennifer Zamora Albumin/Globulin [Mass ratio] 0.9 {ratio} Normal [facility] Comment on above: Performed By: #### C MP #### [facility] [address] [place] [address] Dr. Jennifer Zamora ALP [Catalytic activity/Vol] 108 U/L Normal 46-116 [facility] Comment on above: Performed By: #### C MP #### [facility] [address] [place] [address] Dr. Jennifer Zamora ALT [Catalytic activity/Vol] 35 U/L Normal 16-63 [facility] Comment on above: Performed By: #### C MP #### [facility] [address] [place] [address] Dr. Jennifer Zamora Anion gap [Moles/Vol] 7.0 mmol/L Normal [facility] Comment on above: Performed By: #### C MP #### [facility] [address] [place] [address] Dr. Jennifer Zamora AST [Catalytic activity/Vol] 11 U/L Critically low 15-37 [facility] Comment on above: Performed By: #### C MP #### [facility] [address] [address] [address] Jennifer Zamora Bilirubin [Mass/Vol] 0.7 mg/dL Normal 0.2-1.0 [facility] Comment on above: Performed By: #### C MP #### [facility] [address] [address] [address] Jennifer Zamora Calcium [Mass/Vol] 8.9 mg/dL Normal 8.5-10.1 [facility] Comment on above: Performed By: #### C MP #### [facility] [address] [address] [address] Jennifer Zamora Chloride [Moles/Vol] 100 mmol/L Normal 98-107 [facility] Comment on above: Performed By: #### C MP #### [facility] [address] [address] [address] Jennifer Zamora CO2 [Moles/Vol] 32.5 mmol/L Critically high 21.0-32.0 [facility] Comment on above: Performed By: #### C MP #### [facility] [address] [place] [address] Dr. Jennifer Zamora Creatinine [Mass/Vol] 1.05 mg/dL Normal 0.70-1.30 [facility] Comment on above: Performed By: #### C MP #### [facility] [address] [address] [address] Jennifer Zamora EGFR-AF UGANDAN >60 Normal >=60 [facility] Comment on above: Performed By: #### C MP #### [facility] [address] [address] [address] Jennifer Zamora EGFR-NON AF UGANDAN >60 Normal >=60 [facility] Comment on above: Performed By: #### C MP #### [facility] [address] [address] [address] Jennifer Zamora Globulin (S) [Mass/Vol] 3.7 g/dL Normal [facility] Comment on above: Performed By: #### C MP #### [facility] [address] [address] [address] Jennifer Zamora Glucose [Mass/Vol] 175 mg/dL Critically high 74-106 [facility] Comment on above: Performed By: #### C MP #### [facility] [address] [address] [address] Jennifer Zamora Potassium [Moles/Vol] 4.5 mmol/L Normal 3.5-5.1 [facility] Comment on above: Performed By: #### C MP #### [facility] [address] [address] [address] Jennifer Zamora Protein [Mass/Vol] 7.1 g/dL Normal 6.4-8.2 [facility] Comment on above: Performed By: #### C MP #### [facility] [address] [address] [address] Jennifer Zamora Sodium [Moles/Vol] 135 mmol/L Critically low 136-145 [facility] Comment on above: Performed By: #### C MP #### [facility] [address] [address] [address] Jennifer Zamora Urea nitrogen [Mass/Vol] 18.0 mg/dL Normal 7.0-18.0 [facility] Comment on above: Performed By: #### C MP #### [facility] [address] [address] [address] Jennifer Zamora Urea nitrogen/Creatinine [Mass ratio] 17.1 mg/mg Normal [facility] Comment on above: Performed By: #### C MP #### [facility] [id number] Jennifer Zamora Vital Signs Date Time Vital Sign Value Performing Clinician Keyona bobo 02-01-2025 14:09040 Body height 180.34 cm Dara Eisenberg APRN Work Phone: [facility] 02-01-2025 14:09040 Body mass index (BMI) [Ratio] 41.7 kg/m2 Dara Eisenberg HOME ADVISOR Work Phone: [facility] 02-01-2025 14:09-0400 Body temperature 96.5 [degF] Dara Eisenberg APRN Work Phone: [facility] 02-01-2025 14:09-0400 Body weight 135.62 kg Dara Eisenberg HOME ADVISOR Work Phone: [facility] 02-01-2025 14:09-0400 Diastolic blood pressure 68 mm[Hg] Dara Eisenberg HOME ADVISOR Work Phone: [facility] 02-01-2025 14:09-0400 Heart rate 102 /min Dara Eisenberg HOME ADVISOR Work Phone: [facility] 02-01-2025 14:09-0400 SaO2% (BldA) [Mass fraction] 96 % Dara Eisenberg HOME ADVISOR Work Phone: [facility] 02-01-2025 14:09-0400 Systolic blood pressure 114 mm[Hg] Dara Eisenberg HOME ADVISOR Work Phone: [facility] 11-05-2024 10:26-0400 Body height 180.34 cm [facility] 11-05-2024 10:26-0400 Body mass index (BMI) [Ratio] 44.7 kg/m2 [facility] 11-05-2024 10:26-0400 Body weight 145.6 kg [facility] 11-05-2024 10:26-0400 Diastolic blood pressure 68 mm[Hg] [facility] 11-05-2024 10:26-0400 Heart rate 98 /min [facility] 11-05-2024 10:26-0400 Respiratory rate 14 /min [facility] 11-05-2024 10:26-0400 SaO2% (BldA) [Mass fraction] 90 % [facility] 11-05-2024 10:26-0400 Systolic blood pressure 128 mm[Hg] [facility] 05-03-2024 14:14-0400 Body height 180.34 cm HOME ADVISORFauzia Eisenberg Work Phone: [facility] 05-03-2024 14:14-0400 Body mass index (BMI) [Ratio] 39.3 kg/m2 HOME ADVISORFauzia Eisenberg Work Phone: [facility] 05-03-2024 14:14-0400 Body temperature 96.9 [degF] HOME ADVISORFauzia Eisenberg Work Phone: [facility] 05-03-2024 14:14-0400 Body weight 128 kg HOME ADVISORFauzia Eisenberg Work Phone: [facility] 05-03-2024 14:14-0400 Diastolic blood pressure 86 mm[Hg] HOME ADVISORFauzia Eisenberg Work Phone: [facility] 05-03-2024 14:14-0400 Heart rate 108 /min HOME ADVISORFauzia Eisenberg Work Phone: [facility] 05-03-2024 14:14-0400 SaO2% (BldA) [Mass fraction] 92 % HOME ADVISORFauzia Eisenberg Work Phone: [facility] 05-03-2024 14:14-0400 Systolic blood pressure 142 mm[Hg] ROWDY Dara Eisenberg Work Phone: [facility] 04-05-2024 13:44-0400 Body height 180.34 cm DPM Rc Curtis Work Phone: [facility] 04-05-2024 13:44-0400 Body mass index (BMI) [Ratio] 39.6 kg/m2 DPM Rc Curtis Work Phone: [facility] 04-05-2024 13:44-0400 Body temperature 97.4 [degF] DPShantell Curtis Work Phone: [facility] 04-05-2024 13:44-0400 Body weight 128.82 kg DPM Rc Curtis Work Phone: [facility] 04-05-2024 13:44-0400 Diastolic blood pressure 70 mm[Hg] DPShantell Curtis Work Phone: [facility] 04-05-2024 13:44-0400 Heart rate 61 /min DPShantell Curtis Work Phone: [facility] 04-05-2024 13:44-0400 SaO2% (BldA) [Mass fraction] 87 % DPShantell Curtis Work Phone: [facility] 04-05-2024 13:44-0400 Systolic blood pressure 134 mm[Hg] DPShantell Curtis Work Phone: [facility] Encounters Encounter Date Encounter Type Care Provider Facility Start: 04-05-2025 End: 04-05-2025 ambulatory Dara Eisenberg APRN Work Phone: [facility] Work Phone: Start: 04-05-2025 End: 04-05-2025 Departed Referred Coco Starr MD -LAB Path [facility] Start: 04-05-2025 Non-patient / Non-visit Erendira Richard MD -[facility] Work Phone: Start: 02-15-2025 ambulatory ACNP Helen Rand lity:[facility] Start: 02-01-2025 End: 02-01-2025 ambulatory Dara Eisenberg APRN Work Phone: [facility] Work Phone: Start: 02-01-2025 End: 02-01-2025 Patient encounter procedure Dara Eisenberg APRN [facility] Work Phone: Start: 01-27-2025 Non-patient / Non-visit Angelic Blevins [facility] Work Phone: Start: 01-24-2025 End: 01-26-2025 Evaluation and management of inpatient Ghassan Ding Facility:[facility] Start: 01-24-2025 Emergency department patient visit Manuel Fletcher Facility:[facility] Start: 11-05-2024 End: 11-05-2024 ambulatory [facility] Work Phone: Start: 11-05-2024 End: 11-05-2024 Patient encounter procedure [facility] Work Phone: Start: 08-29-2024 Evaluation and management of inpatient MERRILL MIKII [facility] Start: 08-26-2024 Evaluation and management of inpatient BILL BARBARAANI [facility] Start: 08-24-2024 Evaluation and management of inpatient PALOMO CADENCE [facility] Start: 08-24-2024 Evaluation and management of inpatient PALOMO CADENCE [facility] Start: 08-21-2024 [facility]: 08-21-[facility] Start: 08-20-2024 Evaluation and management of inpatient RUDY [facility] Start: 08-20-2024 Evaluation and management of inpatient RUDY [facility] Start: 08-19-2024 [facility] Start: 08-17-2024 [facility] Start: 08-16-2024 [facility] Start: 08-16-2024 [facility] Start: 08-15-2024 Evaluation and management of inpatient MOHAMED KERLINEI [facility] Start: 08-15-2024 End: 09-09-2024 Evaluation and management of inpatient CHOUDHARY LOISAnthony [facility] Start: 08-15-2024 Non-patient / Non-visit [facility] Work Phone: Start: 08-14-2024 Non-patient / Non-visit [facility] Work Phone: Start: 08-10-2024 End: 08-12-2024 Clinisync Result Encounter Shaikh Mono JARRETT Work Phone: [facility] Unsolicited Start: 08-10-2024 End: 08-12-2024 Clinisync Result Encounter Shaikh Mono JARRETT Work Phone: [facility] Unsolic[facility] Start: 05-03-2024 End: 05-03-2024 ambulatory HOME ADVISORFauzia Eisenberg Work Phone: [facility] Work Phone: Start: 05-03-2024 End: 05-03-2024 Patient encounter procedure ROWDY Eisenberg Work Phone: [facility] Work Phone: Start: 04-12-2024 End: 04-12-2024 ambulatory HOME ADVISORFauzia Eisenberg Work Phone: [facility] Work Phone: Start: 04-12-2024 End: 04-12-2024 Patient encounter procedure ROWDY Eisenberg Work Phone: [facility] Work Phone: Start: 04-08-2024 End: 04-08-2024 ambulatory ROWDY Eisenberg Work Phone: [facility] Work Phone: Start: 04-08-2024 End: 04-08-2024 Departed Referred ROWDY Eisenberg Work Phone: [facility]-LAB Path [facility] Start: 04-08-2024 Non-patient / Non-visit ROWDY Eisenberg Work Phone: [facility] Work Phone: Start: 04-05-2024 End: 04-05-2024 Clinisync Result Encounter Shaikh Mono JARRETT Work Phone: [facility] Unsolic[facility] Start: 04-05-2024 End: 04-05-2024 Clinisync Result Encounter Shaikh Mono JARRETT Work Phone: [facility]solic[facility] Start: 04-05-2024 End: 04-05-2024 ambulatory DPM Rc Curtis Work Phone: [facility] Work Phone: Start: 04-05-2024 End: 04-05-2024 Patient encounter procedure DPM Rc Curtis Work Phone: [facility] Work Phone: Start: 03-29-2024 End: 03-29-2024 ambulatory Rc Cruz [facility] Work Phone: Start: 03-29-2024 End: 03-29-2024 Departed Referred DPM Rc Curtis Work Phone: [facility] Path [facility] Start: 01-26-2024 Non-patient / Non-visit DPM Rc Curtis Work Phone: [facility] Work Phone: Start: 07-14-2022 End: 07-15-[address] EDELMIRA SANTILLAN Facility:[facility] Start: 05-13-2022 End: 05-14-[address] MADELEINE MARCELINO Facility:[facility] Procedures Date Procedure Procedure Detail Performing Clinician Start: 08-10-2024 Bacteria identified in Urine by Culture Shaikh Mono JARRETT Work Phone: Start: 04-08-2024 Acid Fast Smear HOME ADVISOR Je reinier Eisenberg Work Phone: Start: 04-08-2024 AFB Specimen Processing ROWDY Diamond Faina Work Phone: Start: 04-08-2024 Anaerobic Cult, Extended Incub ROWDY Diamond Faina Work Phone: Start: 04-08-2024 Tissue Culture ROWDY wheat Faina Work Phone: Start: 04-05-2024 ALL CBC WITH AUTO DIFF Shaikh Mono JARRETT Work Phone: History of amputatio n of foot Status post partial amputation of right foot History of amputatio n of foot Status post partial amputation of right foot Dara Faina [employer] History of amputatio n of foot Status post partial amputation of right foot Dara Faina [employer] Plan of Treatment Date Care Activity Detail Author Start: 04-05-2025 Urine culture [facility] Start: 04-05-2025 Bacteria identified in Urine by Culture Urine Culture [facility] Start: 04-08-2024 Acid Fast Culture Acid Fast Culture [facility] Payers Date Payer Category Payer Private Health Insurance [id number] 2024 Self-pay 2024 Medicare [id number] 1961 Self-pay [id number] 1961 Unknown [id number] 1959 Unknown [id number] 1958 Unknown [id number] .[id number] 1958 Unknown [id number] .[id number] .59 1958 Unknown [id number] [id number] .727 1958 Unknown [id number] .72 1958 Unknown [id number] [id number] .727 1958 Unknown [id number] 2.16.840.1.355078.3.579.2 .727 1958 Unknown [id number] 2.16.840.1.281851.3.579.2 .1958 Unknown [id number] 2.16.840.1.828647.3.579.2 .1958 Unknown [id number] 2.16.840.1.255505.3.579.2 .1958 Unknown [id number] 2.16.840.1.605103.3.579.2 .1958 Unknown [id number] 2.16.840.1.594156.3.579.2 .727 Medicare [employer] [id number] Private Health Insurance [facility] [id number] Unknown [id number] [id number] .531 Unknown Regular Insurance [id number] Social History Date Type Detail Facility Tobacco smoking status NHIS Unknown if ever smoked [facility] Work Phone: Start: 1960 Sex Assigned At Male [facility] Start: 04-05-2024 Tobacco smoking status NHIS Smoker (finding) [facility] Tobacco smoking status AKIS Tobacco smoking consumption unknown [facility] Start: 1960 Sex assigned at Not on file [facility] Gender identity Not on file [facility] are Start: 11-05-2024 Sex Male (finding) [facility] Start: 04-05-2024 Tobacco smoking status NHIS Smokes tobacco daily (finding) [facility] Medical Equipment Procedure Code Equipment Code Equipment Origin al Text Equipment Identifier Dates Blood Sugar Diagnostic strip Start: 04-28-2024 Blood Sugar Diagnostic strip Start: 04-28-2024 End: 04-28-2024 Blood Sugar Diagnostic strip Start: 04-28-2024 Blood Sugar Diagnostic strip Start: 04-28-2024 End: 04-28-2024 Blood Sugar Diagnostic strip Start: 04-28-2024 Blood Sugar Diagnostic strip Start: 04-28-2024 End: 04-28-2024 Clinical Notes 08-16-2024 to 02-01-2025 Note Date & Type Note Facility 02-01-2025 Evaluation note Diagnosis Onset Date Resolution Atrial flutter acute February 01, 2025 2:06pm COPD (chronic obstructive pulmonary disease) acute February 01, 2025 2:06pm Heart failure acute February 01, 2025 2:06pm Hypertension acute February 01, 2:06pm Mixed hyperlipidemia acute February 01, 2025 2:06pm Nicotine dependence acute February 01, 2025 2:06pm Non-compliance acute February 01, 2025 2:06pm Non-healing wound of left lower extremity acute February 01, 2025 2:06pm Non-healing wound of right lower extremity acute February 01, 2025 2:06pm Oxygen dependent acute January 2:06pm Sleep disturbance acute February 012024 2:06pm Status post partial amputation of right foot acute February 012024 2:06pm Type 2 diabetes mellitus acute February 01, 2025 2:06pm Type 2 diabetes mellitus with diabetic neuropathy acute February 012024 2:06pm Venous insufficiency (chronic) (peripheral) acute January 2:06pm [facility] Work Phone: 1(978) 112-912907-14-2025 NoteMicrobiology PROCEDURE: Blood Culture Charcoal [R1] SOURCE: Blood BODY SITE: Hand L COLLECTED DATE/TIME: 01/24/2025 17:12 EDT RECEIVED DATE/TIME: 01/24/2025 17:31 EDT START DATE/TIME: 01/24/2025 17:31 EDT FREE TEXT SOURCE: Ghassan Ding III, DO, III, DO, Lawrence J. J. FINAL REPORTS Final Report [] Verified Date/Time: 01/31/2025 18:00 EDT No growth at 7 days. Performing Locations R1: This test was performed at: [facility], [address] [place] [address], [id number] [place] [address], [address] [place], [place] [address]Comment on above:Performed By: #### [id number] #### [address] [id number] NoteMicrobiology PROCEDURE: Blood Culture Charcoal [R1] SOURCE: Blood BODY SITE: Arm R COLLECTED DATE/TIME: 01/24/2025 17:07 EDT RECEIVED DATE/TIME: 01/24/2025 17:31 EDT START DATE/TIME: 01/24/2025 17:31 EDT FREE TEXT SOURCE: Ghassan Ding III, DO, III, DO, Lawrence J. J. FINAL REPORTS Final Report [] Verified Date/Time: 01/31/2025 18:00 EDT No growth at 7 days. Performing Locations R1: This test was performed at: [facility], [address] [place] [address], [address] [place] [address], [address] [place], [place] [address]Comment on above:Performed By: #### [id number] #### [address] [id number] NotePatient Education - Text Atrial Fibrillation Atrial fibrillation (AFib) is a type of irregular or rapid heartbeat (arrhythmia). In AFib, the toppart of the heart (atria) beats in an [...] signals of the heart. ??? An ambulatory teletypesetter monitor to record your heart's activity for [...] warning signs of a (more content not included)...[facility]07-09-2025 NoteDischarge Summary Admission and Discharge Information Admit Date/Time:01/24/2025 [...] Insulin dependent type 2 diabetes mellitus, 01/24/2025 MCC (current) use of insulin, 01/24/2025 Medical problem [...] poor historian, and obesity who presented [facility]25 with chief complaint of varicose vein bleeding on right lower extremity and admitted with sepsis secondary to bilateral lower extremity cellulitis with associated KRISTINE and urinary retention. Newberry was placed in the ER.Patient was started on vancomycin. Podiatry was consulted. Patient had been completely noncompliantwith his insulin regimen for some time. He also has A-fib and was noncompliant with Eliquis becauseit was too expensive. Pharmacy was consulted for warfarin management and he was started on warfarinwhile inpatient. He was restarted on insulin. Multiple discussions were had with the patient about the importance of compliance with at least some form of insulin/glucose control regimen. Patient wasinsistent on trying an iaqg-tci-vyrbnas supplement that he stated would cure diabetes and I had multiple discussions with him regarding this and encouraged him to comply with insulin to some degree. I educated patient that his wounds would not heal properly if he had continuously uncontrolled glucose. I counseled him on potential side effects of long-term poorly controlled diabetes. KRISTINE improved with Newberry IV fluids and antibiotics. Elevated WBC count resolved. Blood cultures negative. Patient was very eager to discharge home. Patient restarted on 30 units of glargine daily and his glucose had gone from 400s on admission to averaging in the 200s with the addition of this alone. Seen by podiatry who dressed his wounds and recommended continued follow-up with [place] [facility] where he receives care. Patient successfully passed a voiding trial and was voiding easily after removalof Newberry. Creatinine had improved from 1.4-0.8 on discharge. Medically stable for discharge home on 01/26/2025. Follow-up PCP in 7 to 10 days Continued care at [place] [facility] Referral sent to Dr. Dugan in [place] for endocrinology follow-up for better glucose control. Discussed this with patient and he was agreeable. [facility] Medication changes Continue metoprolol Continue [...] Completed -- 01/24/25 20:11:27 EDT Consult to Health Technician Hearing (Health Technician Hearing Consult) - Ordered -- 01/24/25 20:22:00 EDT, [...] equal & normal b (more content not included)...[facility] CenterComment [facility] above:Result Comment: Electronically Signed By: Ghassan Ding III, DO.br\Date and Time Signed: 01/26/25 16:13 [id number] NotePatient Education - Text Atrial Fibrillation Atrial fibrillation (AFib) is a type of irregular or rapid heartbeat (arrhythmia). In AFib, the toppart of the heart (atria) beats in an [...] signals of the heart. ??? An ambulatory teletypesetter monitor to record your heart's activity for [...] warning signs of a (more content not included)...[facility]07-09-2025 NoteProgress Note - Pharmacy Pharmacy to Dose Warfarin Indication for warfarin [...] Plan; TBD Please contact Pharmacy at ext. [phone] if there are any questions.[facility]07-08-2025 NoteInterdisciplinary Note - OT Pt is seen for OT evaluation. [facility] Pt is agreeable only to sitting EOB, no further transfers or mobility and becomes very agitated due to BLE pain. Pt is below functional baseline for ADL performance. OT to follow for treatment. Recommending HH vs SNF at this time pending progress with treatment. [facility]07-08-2025 NoteProgress Note-Physician Assessment/Plan 01/25 - WBC count downtrending with vancomycin. Creatinine downtrending with placement of Newberry catheter. Hyponatremia improved. A1c is 12.6. Uptitrating [...] Orders Initial Hospital Care/Day Moderate 55 Minutes 20996 Sbsq Hospital Care/Day Moderate 35 Minutes 89912 2. Cellulitis of leg (L03.119: Cellulitis of unspecified part of limb) Management per #1. Podiatry consult pending Ordered: Home Health Orders 3. KRISTINE (acute kidney injury) (N17.9: Acute kidney failure, unspecified) Suspect prerenal and acute retention. Improving with fluid challenge/bolus and newberry placement 01/24 Patient had a tourniquet on for less than 1 hour via EMS in transit. CK negative. No rhabdo Ordered: Home Health Orders 4. Atrial fibrillation with RVR (I48.91: Unspecified atrial fibrillation) Rate controlled under 120 bpm. BP and HR improved with IV fluids and antibiotics. Restarted home metoprolol tartrate 50mg PO BID. Monitoring on telemetry. Patient noncompliant with anticoagulation. [id number] score is 4. Reports that Eliquis dose too expensive. INR is 1 currently. Started on warfarin. Pharmacy consult for warfarin management. Bridged with weight-based Lovenox pending echo to see if this is valvular versus nonvalvular A-fib. If nonvalvular A-fib can consider not bridging with Lovenox. Ordered: warfarin, Pharmacy to dose, Tab, Oral, As Directed for 100 day(s), Stop date 05/04/25 16:06:00 EDT,Routine, Start date 01/24/25 16:07:00 EDT 5. Bleeding [...] despite clear documentation from previous admission in [place] in August 2024. Reports that he stopped taking all of his diabetes medications. 8. Insulin dependent type 2 diabetes mellitus (E11.9: Type 2 diabetes mellitus without complications) A1c: 12.6 BGT ACHS with sliding scale insulin as needed Lantus 30 units nightly at home. Patient noncompliant. Tolerated 20units QHS 01/24, uptitrate to 30 units today. Goal glucose will be less than 180. MCC (current) use of insulin (Z79.4: MCC (current) use of insulin) Orders: acetaminophen, 975 [...] for 5 day(s), Stop date 01/30/25 13:23:00 EDT,Routine, Start date 01/25/25 13:24:00 EDT, 01/25/25 13:24:00 [...] Capillary Glucose POC Cardiac Monitoring Consult to Health Technician Hearing Creatine Kinase (more content not included)...[facility] CenterComment on above:Result Comment: Electronically Signed By: Ghassan Ding III, DO\Date and Time Signed: 01/25/25 13:28 [id number] NoteConsultation Note Patient: TYLER SMITH Age: 64 years Sex: Male : 1960 [...] Once PRN Blood glucose, Routine, Start date 01/25/2520:23:00 EDT Insulin Lispro Sliding Scale: 0-10 Unit(s), [...] Oral, q8hr PRN Pain, Routine, Start date 01/25/2520:21:00 EDT, 01/24/25 20:21:00 EDT enoxaparin Injection: 130 mg = 0.87 mL, Injection, SubCutaneous, BID for 30 day(s), Stop date 02/23/25 20:59:00 EDT, Routine, Start date 01/24/25 21:00:00 EDT insulin glargine 100 units/mL SubQ Stephanie 10 mL: 20 unit(s) = 0.2 mL, Injection- Insulin, SubCutaneous,Bedtime, Routine, Start date 01/24/25 21:00:00 EDT morphine [...] list: All Problems Smoker / SNOMED CT 564518148 / Confirmed Added secondary to documentation in Social History. Tobacco use / SNOMED CT 1828364386 / Confirmed, Active Problems (2) Smoker Tobacco [...] mmHg (JAN 25:) DBP 65 mmHg (JAN 25:) Weight 126.3 kg (JAN 25 05:00) BMI [...] I am recommending Betadine dressings to be applieddaily in a wet-to-dry manner to help dry out his legs. He will follow-up as an outpatient with the wound center in [place].[facility] CenterComment on above:Result Comment: Electronically Signed By: Sina Mckeon DPM\Date and Time Signed: 01/25/25 12:56 [id number] NoteInterdisciplinary Note - PT PT Evaluation done this date. Pt. with on AM-PAC this date. He requires supervision to CGAx1 with all activity. Uses w/c and FWW at baseline. Recommend home with home health PT.[facility]07-08-2025 NoteProgress Note - Pharmacy Pharmacy to Dose Warfarin Indication for warfarin [...] Plan; TBD Please contact Pharmacy at ext. [phone] if there are any questions.[facility]07-07-2025 NoteHistory and Physical Basic Information Admit Date/Time:01/24/2025 18:23 Chief Complaint right leg vericose vein burst in the shower History of Present Illness The patient is a 64-year-old male with past medical history of HFrEF (EF 20 to 25%), A-fib, COPD/obesity hypoventilation syndrome with chronic hypoxic respiratory failure on 4 L oxygen nasal cannula at baseline, HTN, insulin- dependent type 2 diabetes, history of MRSA pneumonia requiring intubation ( August 2024), medication noncompliance, poor historian, and obesity who presented to [facility] 01/24[facility]2025 with chief complaint of varicose vein bleeding on right lower extremity. Hemostasis wasachieved in the field with application of 2 [...] 17.4. Patient had poorly controlled glucose of 430with sodium of 128. Sodium was 133 when [...] with source being lower extremity cellulitis. Endorgan dysfunctionbeing KRISTINE. With relative hypotension patient given appropriate sepsis bolus based on ideal body weight which would be 75 kg. Given 2 L. [place] sepsis bolus will be 2.25 L, ever, with patient's historyof heart failure limiting IV fluids to 2 [...] and need for anticoagulation with him. He voicedhis understanding. He stated that he has not been compliant with any of his diabetic medications including insulin or metformin for quite some time. He stated that he stopped taking metformin becausehe was sick of taking it and that [...] specifically. He follows with Dr. Curtis at [place] for podiatry and had a right transmetatarsal amputation in the past that appeared well- healed. He denies ever seeing vascular surgery. He follows with [place] [facility]. Stated that he has not been able to tolerate lower extremity wraps inthe past. He has significant venous stasis dermatitis [...] ROM, Normal alignment. Ext (more content not included)...[facility] CenterComment on above: Result Comment: Electronically Signed By: Ghassan Ding III, DO.br\Date and Time Signed: 01/24/25 20:28 [id number] NoteED Patient Education Note Cardiovascular Bleeding Varicose Veins Varicose veins are veins that have become enlarged and twisted due to damaged valves in the veins. Valves in the veins help return blood from the vein to the heart. If these valves are damaged, bloodflows backward and backs up into the veins. [...] at home: Medicines ??? Take and use xlsg-ctk-bcvvxur and prescription medicines and creams only as told by your healthcare provider. ??? If you were prescribed an antibiotic cream, use it as told by your health care provider. Do notstop using the antibiotic even if your condition [...] clothing, especially around your limbs and wais (morecontent not included)...[facility] 01-24-2025 NoteProgress Note-Nurse tourniquerts removed by Shantell [facility]07-07-2025 NoteProgress Note - Pharmacy Pharmacy to Dose Warfarin Indication for warfarin [...] Plan; TBD Please contact Pharmacy at ext. [phone] if there are any questions. Spoke with Dr. Ding - he is ordering a lovenox bridgeAdena [facility] Center07-07-2025 NoteProgress Note-Nurse derrell stopped after 4 minutes for blood cultures that are new order. puneet newmanAdena [facility]ike [facility] Center07-07-2025 NoteProgress Note-Nurse pt reportedly wears 5 lpm at [facility]. d8id not say before. no saturating properly on at home [address]04-18-2025 Evaluation note* Diagnosis Onset Date Resolution Status [...] c) (peripheral) acute November 05, 2024 10:18am [facility] Work Phone: 1(142) 259-292802-20-2025 [facility]-20[facility]Un[facility]02-19-2025 NoteUn[facility]02-19-20[facility] NoteDISCHARGE PLANNING UPDATE Patient now agreeable to SNF placement. Insurance authorization submitted for [facility] in [place]. Awaiting insurance decision.[facility]02-18-2025 [facility] 09-07-2024 [facility]Un[facility]02-18-2025 [facility]Un[facility]02-18-2025 [facility] 09-07-2024 [facility]Un[facility]02-18-2025 Note[facility]-2025 [facility]-06-2024 NoteUn[facility]02-17-2025 NoteUn[facility]02-17-2025 [facility] 09-05-2024 [facility]Un[facility]02-16-2025 [facility]Un[facility]02-15-2025 [facility]Un[facility] 09-04-2024 Note[facility]-15-2025 NoteK[facility]02-14-2025 Note[facility] 09-03-2024 Note[facility]02-14-2025 NoteUn[facility]02-13-2025 NoteUn[facility] 09-02-2024 NoteUn[facility]02-13-2025 NoteUn[facility]02-13-2025 NoteK[facility]-01-2024 NoteDISCHARGE PLANNING UPDATE [facility] ([place], [place]) is FOC. Per their admissions team, they are submitting to insurance for authorization today, 09/01.[facility] 09-01-2024 [facility]Un[facility]02-12-2025 [facility]Un[facility]02-11-2025 [facility]-31-2024 NoteUn[facility]02-11-2025 NoteUn[facility]02-11-2025 [facility]Un[facility] 08-30-2024 NoteUn[facility]02-10-2025 NoteUn[facility]02-10-2025 [facility]Un[facility] 08-30-2024 [facility]Un[facility]02-09-2025 NoteUn[facility]02-08-2025 [facility] 08-28-2024 [facility]Un[facility]02-08-2025 Note[facility]-07-2025 Note[facility] 08-27-2024 NoteK[facility]02-06-2025 NoteK[facility]02-06-2025 NoteK[facility] 08-26-2024 NoteK[facility]02-06-2025 NoteK[facility]02-05-2025 Note[facility] 08-25-2024 NoteK[facility]02-05-2025 NoteK[facility]02-05-2025 NoteK[facility] 08-24-2024 NoteK[facility]02-04-2025 NoteK[facility]02-04-2025 NoteUn[facility] 08-24-2024 NotePatient is off unit for testing at this time.[facility]02-04-2025 Note[facility]02-04-2025 Note [facility]02-04-2025 NoteUn[facility]02-04-2025 NoteUn[facility]02-04-2025 Note [facility]02-03-2025 NoteUn[facility]02-03-2025 NoteUn[facility]02-02-2025 Note [facility]02-01-2025 NoteUn[facility]02-01-2025 [facility]Un[facility]01-31-2025 Note [facility]01-31-2025 [facility]Un[facility]01-30-2025 [facility]Un[facility]01-29-2025 Note [facility]01-28-2025 NoteUn[facility]01-28-2025 NoteUn[facility]01-27-2025 Note [facility]01-27-2025 NoteUnF[facility]01-27-2025 NoteUnFayette County Memorial HospitalEvaluation noteNo assessment information availableThe [facility] Work Phone: Evaluation note* Diagnosis Onset Date Resolution Status Type 2 diabetes mellitus acu te [facility] Work Phone: Evaluation note* Diagnosis Onset Date Resolution Status COPD (chronic obstructive pulmonary disease) acute Hypertension acute MRSA cellulitis of right foot acute Nicotine dependence acute Non-compliance acute Oxygen dependent acute Type 2 diabetes mellitus acu te Ulcer of right foot due to type 2 diabetes mellitus acute [facility] Work Phone: Evaluation note* Diagnosis Onset Date Resolution Status COPD (chronic obstructive pulmonary disease) acute Hypertension acute MRSA cellulitis of right foot acute Nicotine dependence acute Non-compliance acute Oxygen dependent acute Type 2 diabetes mellitus acu te Ulcer of right foot due to type 2 diabetes mellitus acute Acute osteomyelitis of foot acute [facility] Work Phone: Evaluation note* Diagnosis Onset Date Resolution Status COPD (chronic obstructive pulmonary disease) acute Hypertension acute MRSA cellulitis of right foot acute Nicotine dependence acute Non-compliance acute Oxygen dependent acute Type 2 diabetes mellitus acu te Ulcer of right foot due to type 2 diabetes mellitus acute Acute osteomyelitis of foot acute Low back pain acute [facility] Work Phone: Evaluation note* Diagnosis [...] acute November 05, 2024 10:18am [facility] Work Phone: Reason for referral (narrative)No reason for referral information availableUpper Valley Medical Center Work Phone: Summary Purpose Family History Relationship Condition Age at Onset Recorded Date/T mecca mother Malignant neoplasm of cervix Unknown Advance Directives Advance Directive Response Recorded Date/ Time Advance Directives No March 2:40pm Chief Complaint and Reason for Visit Chief Complaint Admit Date Amb Documentation January 27, 2025 8:33 am [facility] follow up February 01, 2025 2:06 pm Unknown April 05, 2025 4:05pm Reason for Visit Admit Date Atrial flutter February 01, 2025 2:06 pm COPD (chronic obstructive pulmonary dise ase) February 01, 2025 2:06pm Heart failure February 01, 2025 2:06 pm Hypertension February 01, 2025 2:06 pm Mixed hyperlipidemia February 01, 2025 2:0 6pm Nicotine dependence February 01, 2025 2:06 pm Non-compliance February 01, 2025 2:06 pm Non-healing wound of left lower extremit y February 01, 2025 2:06pm Non-healing wound of right lower extremi ty February 01, 2025 2:06pm Oxygen dependent February 01, 2025 2:06 pm Sleep disturbance February 01, 2025 2:06 pm Status post partial amputation of right foot February 01, 2025 2:06pm Type 2 diabetes mellitus February 01, 2025 2:06pm Type 2 diabetes mellitus with diabetic n europathy February 01, 2025 2:06pm Venous insufficiency (chronic) (peripher al) February 01, 2025 2:06pm Chief Complaint Admit Date F/U senior care stay/Medications-HIGH R ISK November 05, 2024 10:18am Amb Documentation January 27, 2025 8:33 am [facility] follow up February 01, 2025 2:06 pm Reason for Visit Admit Date Atrial flutter November 05, 2024 10: 18am Chronic back pain November 05, 2024 10: 18am COPD (chronic obstructive pulmonary dise [facility]) November 05, 2024 10:18am Heart failure [...] 2024 10:18am Chief Complaint Admit Date F/U senior care stay/Medications-HIGH R ISK November 05, 2024 10:18am Reason for Visit Admit Date COPD (chronic obstructive pulmonary dise [facility]) November 05, 2024 10:18am Hypertension November [...] CREATED AUTHOR AUTHOR'S ORGANIZ ATION 04/20/2024 [facility] DATE CREATED AUTHOR AUTHOR'S ORGANIZ ATION 10/20/[address] [facility] DATE CREATED AUTHOR AUTHOR'S ORGANIZ ATION 01/28/2025 [employer] [facility] DATE CREATED AUTHOR AUTHOR'S ORGANIZ ATION 01/29/2025 [employer] [facility] DATE CREATED AUTHOR AUTHOR'S ORGANIZ ATION 01/30/2025 [employer] [facility] DATE CREATED AUTHOR AUTHOR'S ORGANIZ ATION 02/04/2025 [facility] DATE CREATED AUTHOR AUTHOR'S ORGANIZ ATION 02/17/2025 [facility] DATE CREATED AUTHOR AUTHOR'S ORGANIZ ATION 04/01/2025 [facility] Care Teams (unrecognized sec tion and content) Team Status: Active Member Role Status Dates Magnolia Chavez LPN Attending Provider Active St art: January 26, 2024 Team Status: Inactive Member Role Status Dates Rc Curtis DPM MS Attending Provider Active Start: March 29, 2024 End: March 29, 2024 Team Status: Active Member Role Status Dates Dara Eisenberg APRN COMMUNITY OUTREACH SPECIALIST-C Primary Care Provider Active Team Status: Inactive Member Role Status Dates Dara Eisenberg APRN COMMUNITY OUTREACH SPECIALIST-C Primary Care Provider, Attending Provider Active Start: April 05, 2024 End: April 05, 2024 Team Status: Active Member Role Status Dates Dara Eisenberg APRN COMMUNITY OUTREACH SPECIALIST-C Primary Care Provider, Attending Provider Active Start: April 08, 2024 Team Status: Inactive Member Role Status Dates Dara Eisenberg APRN COMMUNITY OUTREACH SPECIALIST-C Primary Care Provider Active Start: March [id number] End: April 08, 2024 Rc Curtis DPM MS Attending Provider Active Start: April 08, 2024 End: April 08, 2024 Team Status: Inactive Member Role Status Dates Dara Eisenberg APRN COMMUNITY OUTREACH SPECIALIST-C Primary Care Provider Active Start: March [id number] End: April 12, 2024 Navdeep Trujillo MD Attending Provider Active Sta rt: April 12, 2024 End: April 12, 2024 Team Status: Inactive Member Role Status Dates Dara Eisenberg APRN COMMUNITY OUTREACH SPECIALIST-C Primary Care Provider, Attending Provider Active Start: May 03, 2024 End: May 03, 2024 Team Status: Active Member Role Status Dates Dara Eisenberg APRN COMMUNITY OUTREACH SPECIALIST-C Primary Care Provider Active Start: July Shaikh Mono MD Attending Provider Active Sta rt: August 14, 2024 Team Status: Active Member Role Status Dates Dara Eisenberg APRN COMMUNITY OUTREACH SPECIALIST-C Primary Care Provider Active Start: July Shaikh Mono MD Attending Provider Active Sta rt: August 15, 2024 Team Status: Inactive Member Role Status Dates Dara Eisenberg APRN COMMUNITY OUTREACH SPECIALIST-C Primary Care Provider, Attending Provider Active Start: November 05, 2024 End: November 05, 2024 Team Status: Inactive Member Role Status Dates Dara Eisenberg APRN COMMUNITY OUTREACH SPECIALIST-C Primary Care Provider Active Start: November 05, 2024 End: November 05, 2024 Dara Eisenberg APRN COMMUNITY OUTREACH SPECIALIST-C Attending Provider Act mook Start: November 05, 2024 End: November 05, 2024 Team Status: Active Member Role Status Dates Dara Eisenberg APRN COMMUNITY OUTREACH SPECIALIST-C Primary Care Provider Active Start: January 27, 2025 Angelic Blevins CMA Attending Provider Active Start: January 27, 2025 Team Status: Inactive Member Role Status Dates Dara Eisenberg APRN COMMUNITY OUTREACH SPECIALIST-C Primary Care Provider Active Start: February 01, 2025 End: February 01, 2025 Dara Eisenberg APRN COMMUNITY OUTREACH SPECIALIST-C Attending Provider Act mook Start: February 01, 2025 End: February 01, 2025 Team Status: Active Member Role Status Dates Dara Eisenberg APRN COMMUNITY OUTREACH SPECIALIST-C Primary Care Provider Active Start: March 212024 Coco Starr MD Attending Provider Active Sta rt: April 05, 2025 Team Status: Inactive Member Role Status Dates Coco Starr MD Attending Provider Active Sta rt: April 05, 2025 End: April 05, 2025 Team Status: Active Member Role Status Dates Dara Eisenberg APRN COMMUNITY OUTREACH SPECIALIST-C Primary Care Provider Active Start: March 212024 Erendira Richard MD Attending Provider Active Sta rt: April 06, 2025 Goals (unrecognized section and content) Goals [...] BE BASED ON THE PRIMARY CLINICAL RECORDS. [facility] [employer] [facility]. provides no warranty or guarantee of the accuracy or completeness of information in this document.
--- NOTE | 2025-04-07 13:47 | SWNOTE1 ---
SW spoke to Guera at [facility] and they are a non-smoking facility. SW to let pt know. His second choice was [facility]. SW reached out to Salud at [employer] and they will review referral. Referral sent to [facility]. Referral included face sheet, ED note, H&P, provider notes, case management report, wound consult, podiatry consult, nursing notes, diagnostic imaging, med list, PT note, and insurance card.
--- NOTE | 2025-04-07 15:02 | SWNOTE1 ---
SW stopped in and let pt know that [facility] is a nonsmoking facility and that SW sent referral to [facility] in [place]. Pt is alright with this.
[2025-04-07] MEDS: METOPROLOL TARTRATE 25 MG TABLET PO (20:04)
[2025-04-07] MEDS: INSULIN GLARGINE 300 UNIT/3 ML INSULN.PEN 40 UNIT SQ (20:51)
[2025-04-07] MEDS: VANCOMYCIN HCL 1,250 MG in 0.9 % SODIUM CHLORIDE 250 ML 250 MG IV (21:05)
[2025-04-08] VITALS (25 sets, daily range): BP systolic 95–134; BP diastolic 63–85; PULSE 78–108; TEMP 36.6–37; O2SAT 79–98
[2025-04-08] MEDS: IMIPENEM/CILASTATIN SODIUM 500 MG in 0.9 % SODIUM CHLORIDE 100 ML 200 MG IV ×4 (02:20→22:05)
[2025-04-08] MEDS: HYDROMORPHONE HCL 0.5 MG/0.5 ML SYRINGE 0.25 MG IVP ×2 (02:57→22:49)
[2025-04-08 05:58] LABS: Hematocrit 42.3 % (42.0-54.0); Hemoglobin 13.6 g/dL (14.0-18.0); Mean Corpuscular HGB Conc 32.2 g/dL (29.9-35.2); Mean Corpuscular Hemoglobin 30.9 pg (25.9-34.0); Mean Corpuscular Volume 96.1 fL (80.0-94.0); Platelet Count 306 10^3/uL (150-450); Red Blood Count 4.40 10^6/uL (4.70-6.10); White Blood Count 13.8 10^3/uL (4.0-11.0)
[2025-04-08 06:05] LABS: Anion Gap 7.2; Blood Urea Nitrogen 26.0 mg/dL (7.0-18.0); Calcium 9.6 mg/dL (8.5-10.1); Carbon Dioxide 35.0 mmol/L (21.0-32.0); Chloride 102 mmol/L (98-107); Estimated GFR (African America >60 (>=60 mL/min/1.73m^2); Estimated GFR (Non-African Ame >60 (>=60 mL/min/1.73m^2); Glucose 176 mg/dL (74-106); Potassium 4.2 mmol/L (3.5-5.1); Sodium 140 mmol/L (136-145)
--- NOTE | 2025-04-08 07:50 | CM.NOTE ---
Rounds made with Dr. Richard, discussed plan of care with pt. Pt continues to require oxygen and will have MRI today for foot. No discharge at this time. Awaiting to hear back from [facility] of acceptance for skilled therapy at discharge.
--- NOTE | 2025-04-08 08:26 | P.PN_ITS ---
Progress Note: Subjective Subjective Interval history: Patient continues to refuse MRI although feeling better. Denies foot or leg pain but relates to swelling in both legs right worse than left. Blood cultures reveal strept. UA and wound cultures pending. Exam Narrative Exam Narrative: Ulcer is unchanged in size. More granular and remains full thickness wo bone exposure. No POP. No fluctuance. Constitutional Vital Signs, click to edit/add: Last Vital Signs Temp 98.2 F 04/07/25 20:00 Pulse 108 H 04/08/25 08:00 Resp 0 L 04/08/25 02:00 BP 134/85 04/08/25 01:10 Pulse Ox 96 04/08/25 03:30 O2 Del Method Nasal Cannula 04/07/25 20:00 O2 Flow Rate 5 04/07/25 20:00 FiO2 55 04/07/25 04:00 Progress Note: Objective Labs Labs: Short CBC 04/08/25 Range/Units 05:22 WBC 13.8 H (4.0-11.0) 10^3/uL Hgb 13.6 L (14.0-18.0) g/dL Hct 42.3 (42.0-54.0) % Plt Count 306 (150-450) 10^3/uL BMP 04/08/25 05:22 Sodium 140 Potassium 4.2 Chloride 102 Carbon Dioxide 35.0 H BUN 26.0 H Creatinine 0.81 Glucose 176 H Calcium 9.6 Progress Note: A&P Assessment and Plan (1) Atrial fibrillation with RVR: (2) Sepsis: Qualifiers: Acute respiratory failure type: with hypercapnia Sepsis acute organ dysfunction status: with acute organ dysfunction Sepsis type: methicillin resistant Staphylococcus aureus Severe sepsis acute organ dysfunction type: acute respiratory failure Severe sepsis shock status: without septic shock Qualified Code(s): A41.02 - Sepsis due to Methicillin resistant Staphylococcus aureus; R65.20 - Severe sepsis without septic shock; J96.02 - Acute respiratory failure with hypercapnia (3) Bacteremia: (4) Diabetic foot ulcer: Qualifiers: Diabetes mellitus type: type 2 Diabetic foot ulcer location: midfoot Laterality: right Non-pressure ulcer stage: with fat layer exposed Qualified Code(s): E11.621 - Type 2 diabetes mellitus with foot ulcer; L97.412 - Non- pressure chronic ulcer of right heel and midfoot with fat layer exposed (5) Osteomyelitis: Qualifiers: Laterality: right Osteomyelitis location: foot Osteomyelitis type: chronic, with draining sinus Qualified Code(s): M86.471 - Chronic osteomyelitis with draining sinus, right ankle and foot (6) Cardiomyopathy: Qualifiers: Cardiomyopathy type: unspecified Qualified Code(s): I42.9 - Cardiomyopathy, unspecified Plan Patient seen at bedside. Encouragement provided and detailed explanation to why we should get the foot MRI. Mr. Mckinney became upset stating, It is not my foot it is an infection in my kidneys and pancreas. Continue santyl and daily dressing changes - no change in orders per podiatry Call if patient agrees to proceed with MRI
[2025-04-08] MEDS: MIDODRINE HCL 5 MG TABLET 2.5 MG PO ×3 (09:58→17:11)
[2025-04-08] MEDS: DIGOXIN 125 MCG TABLET 250 MCG PO (09:59)
[2025-04-08] MEDS: APIXABAN 5 MG TABLET PO ×2 (09:59→22:05)
[2025-04-08] MEDS: METOPROLOL TARTRATE 25 MG TABLET PO ×3 (09:59→22:05)
[2025-04-08] MEDS: COLLAGENASE CLOSTRIDIUM HIST. 250 UNITS/GM 30 GRAM TUBE 1 APPLIC TOPICAL (09:59)
[2025-04-08] MEDS: INSULIN ASPART 300 UNIT/3 ML PEN 6 UNIT SUBQ ×3 (10:00→17:10)
[2025-04-08] MEDS: INSULIN ASPART 300 UNIT/3 ML PEN SUBQ ×4 (10:00→22:06)
[2025-04-08] MEDS: INSULIN GLARGINE 300 UNIT/3 ML INSULN.PEN 40 UNIT SQ ×2 (10:01→22:05)
--- NOTE | 2025-04-08 10:15 | P.PN_ITS ---
Progress Note: Subjective Subjective Interval history: Patient is refusing to allow nurse administer antibiotic. Denies foot or leg pain but relates to swelling in both legs right worse than left. Blood cultures reveal strept. UA and wound cultures pending. Exam Narrative Exam Narrative: Morbidly obese. Debilitated. Able to lift up his arms against gravity. Barely able to lift up his legs against gravity. He uses a wheelchair at home. Central obesity. Pale skin and buccal mucosa. Chest is clear, heart is irregular. Abdomen is soft, increased abdominal girth therefore clinically I could not exclude the possibility of intra-abdominal mass organomegaly. Lower extremities examination showed bilateral skin exfoliation's, erythema, hyperpigmentation from the knee down to the feet. Patient has unstable ulcer with the brown drainage measuring about 1 inch and a half on the surface involving the lateral aspect of the right plantar metatarsal. Erythema, induration and drainage. Constitutional Vital Signs, click to edit/add: Last Vital Signs Temp 98.2 F 04/07/25 20:00 Pulse 108 H 04/08/25 08:00 Resp 0 L 04/08/25 02:00 BP 134/85 04/08/25 01:10 Pulse Ox 93 L 04/08/25 08:48 O2 Del Method Nasal Cannula 04/08/25 08:48 O2 Flow Rate 10 04/08/25 08:48 FiO2 55 04/07/25 04:00 Progress Note: Objective Labs Labs: Short CBC 04/08/25 Range/Units 05:22 WBC 13.8 H (4.0-11.0) 10^3/uL Hgb 13.6 L (14.0-18.0) g/dL Hct 42.3 (42.0-54.0) % Plt Count 306 (150-450) 10^3/uL BMP 04/08/25 05:22 Sodium 140 Potassium 4.2 Chloride 102 Carbon Dioxide 35.0 H BUN 26.0 H Creatinine 0.81 Glucose 176 H Calcium 9.6 Progress Note: A&P Assessment and Plan (1) Atrial fibrillation with RVR: (2) Sepsis: Qualifiers: Sepsis type: methicillin resistant Staphylococcus aureus Sepsis acute organ dysfunction status: with acute organ dysfunction Severe sepsis acute organ dysfunction type: acute respiratory failure Acute respiratory failure type: with hypercapnia Severe sepsis shock status: without septic shock Qualified Code(s): A41.02 - Sepsis due to Methicillin resistant Staphylococcus aureus; R65.20 - Severe sepsis without septic shock; J96.02 - Acute respiratory failure with hypercapnia (3) Bacteremia: (4) Diabetic foot ulcer: Qualifiers: Diabetic foot ulcer location: midfoot Diabetes mellitus type: type 2 Laterality: right Non-pressure ulcer stage: with fat layer exposed Qualified Code(s): E11.621 - Type 2 diabetes mellitus with foot ulcer; L97.412 - Non- pressure chronic ulcer of right heel and midfoot with fat layer exposed (5) Osteomyelitis: Qualifiers: Osteomyelitis type: chronic, with draining sinus Osteomyelitis location: foot Laterality: right Qualified Code(s): M86.471 - Chronic osteomyelitis with draining sinus, right ankle and foot (6) Cardiomyopathy: Qualifiers: Cardiomyopathy type: unspecified Qualified Code(s): I42.9 - Cardiomyopathy, unspecified Plan Sepsis, bacteremia present on admission. Resolving. White count, hypotension and tachycardia are improving Infected right diabetic foot ulcer, osteomyelitis, probable tissue abscess formation. Blood cultures positive for strep however patient previously had MRSA wound culture on the left leg. Urine tract infection. Urine and final blood culture report are pending I started patient on combination of vancomycin and Primaxin Look forward the final culture's identification and sensitivity. Requested MRI of the foot. Patient refused to have an MRI on 04/06 delaying his care. I spent about 15 minutes today trying to convince him otherwise. Finally agreed to proceed with MRI imaging. Hopefully we will get get it done today. Podiatry consultation for the possible need of intervention. Requested arterial study rule out arterial disease. Does not show any significant stenosis. Requested venous study rule out DVT. Does not show any DVT. A-fib with RVR. Patient has a history of A-fib and cardiomyopathy Last EF was 25%. Repeat echo showed ejection fraction had improved up to 45 % Continue Eliquis. Continue beta-michelle. Increase beta-michelle dose for better control Continue digoxin for rate control and cardiomyopathy Avoid MARCIE or ARB or ARNI or MRA or SGLT 1 due to borderline hypotension Diabetes with hyperglycemia. Better controlled Adjusting insulin to keep blood sugar between 120 and 180. Continue long-acting insulin, meal insulin and sliding scale. Titrate dose upward to achieve better control. Functional disability. Patient uses a wheelchair at home. Continue PT OT while in the hospital to prevent further decline in his functional status. CKD stage III Kidney function had significantly improved. His creatinine level is better than I have ever seen before on him. At baseline. Continue to monitor kidney function and electrolytes. Chronic medical conditions not listed above, incidental findings seen on labs and imaging. These would need to be addressed. Could be addressed when time and condition are appropriate. Could be addressed in the outpatient setting by PCP collaboration with other needed outpatient providers. Noncompliance. Patient declined to have MRI 04/06 delaying his care potentially putting himself at risk of further decompensation. Patient is refusing to allow his nurse take care of him and administer antibiotic today, 04/08 Nursing staff reported that patient is verbally abusive and not compliant with nursing care. His noncompliance and defiance could potentially increase his risk of worsening condition and negative consequences Counseling and education were provided.
--- NOTE | 2025-04-08 11:35 | SWNOTE1 ---
JOSÉ called [facility] and asked for Salud to see if they accepted pt for rehab. Salud was not in, requested to be transferred to [facility]. JOSÉ spoke with [facility]. She stated they marked him as yellow and unsure if they can accept due to documentation of aggressiveness and behaviors. Salud will be reaching out with final answer and possibly will be doing an on site eval.
--- NOTE | 2025-04-08 11:48 | PM.EN ---
Event Note Event Note: Noncompliance and lack of cooperation as well as verbally abusive toward nurses Patient initially refused to go down for MRI. I was able to convince him yesterday to have an MRI. This morning he refused again. I went back and I was able to convince him to go to get an MRI of the foot. He went down but decided to refuse to proceed with the procedure. equipment engineering technician brought him back to the room. Patient is not allowing his nurse to administer medication and take care of him. I went back to the room and spent about 10 minutes urging him to cooperate with nursing staff so he can get better. Patient had refused to allow therapy team to complete their assessment so he can go to a nursing facility. Several nurse managers had talked to him about his behaviors already that is impeding medical care and potentially put him at risk having negative consequences.
[2025-04-08] MEDS: VANCOMYCIN HCL 1,250 MG in 0.9 % SODIUM CHLORIDE 250 ML 167 MG IV ×2 (12:03→22:47)
--- NOTE | 2025-04-08 12:57 | CM.NOTE ---
Addendum entered by Irena Andre 04/08/25 12:59: sent to Dr. Richard Original Note: [place] txt picture of final urine culture with susceptibility
[2025-04-08] MEDS: ACETAMINOPHEN 325 MG TABLET 650 MG PO (14:25)
[2025-04-08] MEDS: 0.9 % SODIUM CHLORIDE 250 ML 10 ML IV (14:26)
--- NOTE | 2025-04-08 14:54 | SWNOTE1 ---
SW stopped in and spoke with pt in regards to going SNF, pt had refused therapy today. Pt voiced he was upset with physician, nurse, and other doctor. Pt used foul language and was smacking his hand on table. Pt then started talking about residential, politics, and the governor. SW had to redirect pt back to rehab and his discharge plans. He stated he is not going to rehab. He did voice that he liked [facility] and that they had the staff and the equipment for him. He stated he is not going there because no matter where he goes, they will only keep him there for 20 days. He stated what are they are going to do in 20 days to help? He voiced he is not paying to stay past 20 days. Pt then went on talking about residential again. SW again asked him if he is open to going to rehab. He stated no. He will go home by EMS and they will get him in his wheelchair and he will be fine. At this time pt is refusing SNF.
[2025-04-09] VITALS (7 sets, daily range): BP systolic 100–125; BP diastolic 64–81; PULSE 83–95; TEMP 36.6–36.7; O2SAT 93–95
[2025-04-09] MEDS: IMIPENEM/CILASTATIN SODIUM 500 MG in 0.9 % SODIUM CHLORIDE 100 ML 200 MG IV ×3 (03:41→14:48)
--- NOTE | 2025-04-09 04:27 | PC.NURSE ---
pt became violent towards staff while attempting to clean pt. Pt attempted to throw an urinal at staff. Pt was aggressive and screaming at staff. kaykay causey was called for additional help to room. this nurse notified the doctor of the siltation.
[2025-04-09] MEDS: HYDROMORPHONE HCL 0.5 MG/0.5 ML SYRINGE 0.25 MG IVP ×3 (05:23→21:46)
[2025-04-09] MEDS: METOPROLOL TARTRATE 25 MG TABLET PO ×3 (05:23→21:45)
[2025-04-09 07:28] LABS: Hematocrit 41.7 % (42.0-54.0); Hemoglobin 13.1 g/dL (14.0-18.0); Mean Corpuscular HGB Conc 31.4 g/dL (29.9-35.2); Mean Corpuscular Hemoglobin 30.8 pg (25.9-34.0); Mean Corpuscular Volume 97.9 fL (80.0-94.0); Platelet Count 279 10^3/uL (150-450); Red Blood Count 4.26 10^6/uL (4.70-6.10); White Blood Count 12.1 10^3/uL (4.0-11.0)
[2025-04-09 07:53] LABS: Anion Gap 8.0; Blood Urea Nitrogen 20.0 mg/dL (7.0-18.0); Calcium 9.0 mg/dL (8.5-10.1); Carbon Dioxide 33.1 mmol/L (21.0-32.0); Chloride 102 mmol/L (98-107); Estimated GFR (African America >60 (>=60 mL/min/1.73m^2); Estimated GFR (Non-African Ame >60 (>=60 mL/min/1.73m^2); Glucose 187 mg/dL (74-106); Potassium 4.1 mmol/L (3.5-5.1); Sodium 139 mmol/L (136-145)
--- NOTE | 2025-04-09 08:18 | PT.DAILY ---
Physical Therapy Daily Note PT Daily Note/Assess Start: 04/07/25 13:21 Freq: Status: Active Protocol: Document 04/09/25 08:15 [id number] (Rec: 04/09/25 08:18 [id number]) Visit Not Completed Visit Not Completed Visit Not Completed Pt refusing Due to: Other Reason Visit Patient refused to participate with PT this date. Not Completed Patient's response when requested to participate responds by stating let's not go down this road today . Nursing aware of patients refusal. Physical Therapy Daily Note/Assessment Time In/Time Out Time In 07:58 Time Out 08:01 GG. Functional Abilities and Goals-Complete for Swing Bed Patients Only [id number]. Self-Care [id number]. Mobility
[2025-04-09] MEDS: MIDODRINE HCL 5 MG TABLET 2.5 MG PO ×3 (08:59→16:53)
[2025-04-09] MEDS: APIXABAN 5 MG TABLET PO ×2 (08:59→21:46)
[2025-04-09] MEDS: DIGOXIN 125 MCG TABLET 250 MCG PO (08:59)
[2025-04-09] MEDS: INSULIN GLARGINE 300 UNIT/3 ML INSULN.PEN 40 UNIT SQ (09:00)
[2025-04-09] MEDS: INSULIN ASPART 300 UNIT/3 ML PEN 6 UNIT SUBQ ×3 (09:00→16:54)
[2025-04-09] MEDS: COLLAGENASE CLOSTRIDIUM HIST. 250 UNITS/GM 30 GRAM TUBE 1 APPLIC TOPICAL (09:01)
[2025-04-09] MEDS: VANCOMYCIN HCL 1,250 MG in 0.9 % SODIUM CHLORIDE 250 ML 167 MG IV (09:50)
[2025-04-09] MEDS: ACETAMINOPHEN 325 MG TABLET 650 MG PO ×2 (11:55→19:48)
[2025-04-09] MEDS: INSULIN ASPART 300 UNIT/3 ML PEN SUBQ ×3 (11:56→21:50)
--- NOTE | 2025-04-09 13:18 | PM.PN ---
Progress Note: Subjective Subjective Interval history: Patient was very abusive to night nursing team prompting the decision to activate the code alert. Exam Narrative Exam Narrative: Morbidly obese. Patient is much more awake and coherent than previously reported. Debilitated. Able to lift up his arms against gravity. Barely able to lift up his legs against gravity. He uses a wheelchair at home. Central obesity. Pale skin and buccal mucosa. Chest is clear, heart is irregular. Abdomen is soft, increased abdominal girth therefore clinically I could not exclude the possibility of intra-abdominal mass organomegaly. Lower extremities examination showed bilateral skin exfoliation's, erythema, hyperpigmentation from the knee down to the feet. Patient has unstable ulcer with the brown drainage measuring about 1 inch and a half on the surface involving the lateral aspect of the right plantar metatarsal. Erythema, induration and drainage. Less drainage than the previously seen. Constitutional Vital Signs, click to edit/add: Last Vital Signs Temp 97.8 F 04/09/25 06:41 Pulse 83 04/09/25 06:41 Resp 18 04/09/25 06:41 BP 110/72 04/09/25 06:41 Pulse Ox 94 L 04/09/25 10:30 O2 Del Method High Flow Nasal Cannula 04/09/25 10:30 O2 Flow Rate 9 04/09/25 10:30 FiO2 55 04/07/25 04:00 Progress Note: Objective Labs Labs: Short CBC 04/09/25 Range/Units 06:22 WBC 12.1 H (4.0-11.0) 10^3/uL Hgb 13.1 L (14.0-18.0) g/dL Hct 41.7 L (42.0-54.0) % Plt Count 279 (150-450) 10^3/uL BMP 04/09/25 06:22 Sodium 139 Potassium 4.1 Chloride 102 Carbon Dioxide 33.1 H BUN 20.0 H Creatinine 0.88 Glucose 187 H Calcium 9.0 Progress Note: A&P Assessment and Plan (1) Atrial fibrillation with RVR: (2) Sepsis: Qualifiers: Sepsis type: methicillin resistant Staphylococcus aureus Sepsis acute organ dysfunction status: with acute organ dysfunction Severe sepsis acute organ dysfunction type: acute respiratory failure Acute respiratory failure type: with hypercapnia Severe sepsis shock status: without septic shock Qualified Code(s): A41.02 - Sepsis due to Methicillin resistant Staphylococcus aureus; R65.20 - Severe sepsis without septic shock; J96.02 - Acute respiratory failure with hypercapnia (3) Bacteremia: (4) Diabetic foot ulcer: Qualifiers: Diabetic foot ulcer location: midfoot Diabetes mellitus type: type 2 Laterality: right Non-pressure ulcer stage: with fat layer exposed Qualified Code(s): E11.621 - Type 2 diabetes mellitus with foot ulcer; L97.412 - Non-pressure chronic ulcer of right heel and midfoot with fat layer exposed (5) Osteomyelitis: Qualifiers: Osteomyelitis type: chronic, with draining sinus Osteomyelitis location: foot Laterality: right Qualified Code(s): M86.471 - Chronic osteomyelitis with draining sinus, right ankle and foot (6) Cardiomyopathy: Qualifiers: Cardiomyopathy type: unspecified Qualified Code(s): I42.9 - Cardiomyopathy, unspecified Plan Sepsis, bacteremia present on admission. Resolving. White count, hypotension and tachycardia. All resolved Infected right diabetic foot ulcer, osteomyelitis, probable tissue abscess formation. Blood cultures positive for beta-hemolytic strep. Wound cultures no staph. Positive for beta-hemolytic strep Urine tract infection. Positive culture for Enterobacter I started patient on combination of vancomycin and Primaxin. Discontinue vancomycin at this time. Continue Primaxin. Requested MRI of the foot. Patient refused to have an MRI on 04/06 delaying his care. I spent about 15 minutes today trying to convince him otherwise. Finally agreed to proceed with MRI imaging. Patient subsequently refused to have MRI on 04/08. He continues to refuse having MRI of his foot 04/09. Podiatry consultation for the possible need of intervention. Micro Computer Specialist thus far did not recommend any intervention without patient willingness to have his MRI to understand the foot anatomy better. Requested arterial study rule out arterial disease. Does not show any significant stenosis. Requested venous study rule out DVT. Does not show any DVT. A-fib with RVR. Patient has a history of A-fib and cardiomyopathy Last EF was 25%. Repeat echo showed ejection fraction had improved up to 45 % Continue Eliquis. Continue beta-michelle. Increase beta-michelle dose for better control Continue digoxin for rate control and cardiomyopathy Tachycardia had resolved. Avoid MARCIE or ARB or ARNI or MRA or SGLT 1 due to borderline hypotension Diabetes with hyperglycemia. Better controlled Adjusting insulin to keep blood sugar between 120 and 180. Continue long-acting insulin, meal insulin and sliding scale. Titrate dose upward to achieve better control. Functional disability. Patient uses a wheelchair at home. Continue PT OT while in the hospital to prevent further decline in his functional status. CKD stage III Kidney function had significantly improved. His creatinine level is better than I have ever seen before on him. At baseline. Continue to monitor kidney function and electrolytes. Chronic medical conditions not listed above, incidental findings seen on labs and imaging. These would need to be addressed. Could be addressed when time and condition are appropriate. Could be addressed in the outpatient setting by PCP collaboration with other needed outpatient providers. Noncompliance. Patient declined to have MRI 04/06, 04/08 and 04/09 delaying his care potentially putting himself at risk of further decompensation. Patient is refusing to allow his nurse take care of him and administer antibiotic today, 04/08 Nursing staff reported that patient is verbally abusive and not compliant with nursing care. His noncompliance and defiance could potentially increase his risk of worsening condition and negative consequences Counseling and education were provided.
--- NOTE | 2025-04-09 13:24 | PM.EN ---
Event Note Event Note: Patient continues to be verbally abusive toward his nursing staff. Last evening, patient threatened to throw his urine on his night nurse Patient uses foul language toward DC nursing staff. Patient refused to have MRI of the foot Patient does not allow his nurse occasionally to take care of him or administer intravenous antibiotic. Patient had refused to work with physical therapy team and became also abusive towards therapist. I made it very clear to patient that any delay of care could potentially jeopardize his status and could need to negative for medical consequences which may include but not limited to worsening situation, worsening sepsis and even . I made it clear to him that if the infection is not treated well he would end up needing to have above ankle amputation. Myself and the nurse electrical & instrumentation supervisor spent about 15 to 20 minutes counseling about the need to respect nursing staff and treat them with the dignity that they deserve. He promised to treat nurses and respectful manner. I hope he will deliver all his promises.
--- NOTE | 2025-04-09 16:03 | XR_ITS ---
[address] [address] Patient Name: TYLER SMITH MRN: [id number] date: 1960 Sex: M Assigned Patient Location: [place] Current Patient Location: [place] Accession/Order Number: [id number] Exam Date: 04/09/2025 17:35 Report Date: 04/09/2025 18:24 At the request of: GERALD GOLDBERG MD Procedure: XR lumbar spine 2-3V 2 views lumbar spine INDICATION: Pain COMPARISON: None FINDINGS: There is mild straightening. Lumbar vertebral heights maintained. Multilevel facet arthropathy noted greatest L5-S1. Aortic vascular disease. XR/XR lumbar spine 2-3V IMPRESSION: Degenerative changes of the notably involving right posterior elements of the L5-S1. Impression dictated by: Anthony Watts M.D. 04/09/2025 6:24 PM Dictation Location: [place] [address] Electronically authenticated by: [id number] Y Date: 04/09/2025 18:24
[2025-04-09] MEDS: IMIPENEM/CILASTATIN SODIUM 500 MG in 0.9 % SODIUM CHLORIDE 100 ML 100 MG IV (21:46)
[2025-04-09] MEDS: 0.9 % SODIUM CHLORIDE 250 ML 10 ML IV (21:47)
[2025-04-10] VITALS (8 sets, daily range): BP systolic 117–138; BP diastolic 68–83; PULSE 67–100; TEMP 36.4–36.9; O2SAT 88–94
[2025-04-10] MEDS: IMIPENEM/CILASTATIN SODIUM 500 MG in 0.9 % SODIUM CHLORIDE 100 ML 200 MG IV ×2 (03:02→08:07)
[2025-04-10] MEDS: METOPROLOL TARTRATE 25 MG TABLET PO ×2 (06:10→22:18)
[2025-04-10] MEDS: DIGOXIN 125 MCG TABLET 250 MCG PO (08:05)
[2025-04-10] MEDS: OXYCODONE HCL 5 MG TABLET PO (08:06)
[2025-04-10] MEDS: INSULIN ASPART 300 UNIT/3 ML PEN SUBQ ×4 (08:06→22:18)
[2025-04-10] MEDS: MIDODRINE HCL 5 MG TABLET 2.5 MG PO (08:06)
[2025-04-10] MEDS: APIXABAN 5 MG TABLET PO ×2 (08:06→22:17)
[2025-04-10] MEDS: INSULIN ASPART 300 UNIT/3 ML PEN 6 UNIT SUBQ ×3 (08:07→17:28)
[2025-04-10] MEDS: COLLAGENASE CLOSTRIDIUM HIST. 250 UNITS/GM 30 GRAM TUBE 1 APPLIC TOPICAL (08:07)
[2025-04-10] MEDS: INSULIN GLARGINE 300 UNIT/3 ML INSULN.PEN 40 UNIT SQ ×2 (08:07→22:18)
--- NOTE | 2025-04-10 10:51 | PM.PN ---
Progress Note: Subjective Subjective Interval history: Patient is calm today. Reports having back pain which is for him. Patient is having diarrhea. No nausea or vomiting. Exam Narrative Exam Narrative: Morbidly obese. Patient is much more awake and coherent than previously reported. Debilitated. Able to lift up his arms against gravity. Barely able to lift up his legs against gravity. He uses a wheelchair at home. Central obesity. Pale skin and buccal mucosa. Chest is clear, heart is irregular. Abdomen is soft, increased abdominal girth therefore clinically I could not exclude the possibility of intra-abdominal mass organomegaly. Lower extremities examination showed bilateral skin exfoliation's, erythema, hyperpigmentation from the knee down to the feet. Patient has unstageable ulcer with the brown drainage measuring about 1 inch and a half on the surface involving the lateral aspect of the right plantar metatarsal. Erythema, induration and drainage. Significantly less drainage than the previously seen. Constitutional Vital Signs, click to edit/add: Last Vital Signs Temp 97.6 F 04/10/25 08:25 Pulse 67 04/10/25 08:25 Resp 20 04/10/25 08:25 BP 138/83 04/10/25 08:25 Pulse Ox 92 L 04/10/25 10:35 O2 Del Method High Flow Nasal Cannula 04/10/25 10:35 O2 Flow Rate 6 04/10/25 10:35 FiO2 55 04/07/25 04:00 Progress Note: A&P Assessment and Plan (1) Atrial fibrillation with RVR: (2) Sepsis: Qualifiers: Sepsis type: methicillin resistant Staphylococcus aureus Sepsis acute organ dysfunction status: with acute organ dysfunction Severe sepsis acute organ dysfunction type: acute respiratory failure Acute respiratory failure type: with hypercapnia Severe sepsis shock status: without septic shock Qualified Code(s): A41.02 - Sepsis due to Methicillin resistant Staphylococcus aureus; R65.20 - Severe sepsis without septic shock; J96.02 - Acute respiratory failure with hypercapnia (3) Bacteremia: (4) Diabetic foot ulcer: Qualifiers: Diabetic foot ulcer location: midfoot Diabetes mellitus type: type 2 Laterality: right Non-pressure ulcer stage: with fat layer exposed Qualified Code(s): E11.621 - Type 2 diabetes mellitus with foot ulcer; L97.412 - Non-pressure chronic ulcer of right heel and midfoot with fat layer exposed (5) Osteomyelitis: Qualifiers: Osteomyelitis type: chronic, with draining sinus Osteomyelitis location: foot Laterality: right Qualified Code(s): M86.471 - Chronic osteomyelitis with draining sinus, right ankle and foot (6) Cardiomyopathy: Qualifiers: Cardiomyopathy type: unspecified Qualified Code(s): I42.9 - Cardiomyopathy, unspecified Plan Sepsis, bacteremia present on admission. Resolving. White count, hypotension and tachycardia. All resolved Infected right diabetic foot ulcer, osteomyelitis, probable tissue abscess formation. Blood cultures positive for beta-hemolytic strep. Wound cultures no staph. Positive for beta-hemolytic strep Urine tract infection. Positive culture for Enterobacter Requested MRI of the foot. Patient refused to have an MRI on 04/06 delaying his care. I spent about 15 minutes today trying to convince him otherwise. Finally agreed to proceed with MRI imaging. Patient subsequently refused to have MRI on 04/08. He continues to refuse having MRI of his foot 04/09. Podiatry consultation for the possible need of intervention. Legislative Advocate thus far did not recommend any intervention without patient willingness to have his MRI to understand the foot anatomy better. Requested arterial study rule out arterial disease. Does not show any significant stenosis. Requested venous study rule out DVT. Does not show any DVT. I started patient on combination of vancomycin and Primaxin. Vancomycin was discontinued 2 days ago Looking at the combination of blood, urine and wound cultures as well as sensitivity report. Levaquin is the only antibiotic that the 3 cultures are sensitive to. Discontinued Primaxin and start patient on Levaquin. Monitor QT. A-fib with RVR. Patient has a history of A-fib and cardiomyopathy Last EF was 25%. Repeat echo showed ejection fraction had improved up to 45 % Continue Eliquis. Continue beta-michelle. Increase beta-michelle dose for better control Continue digoxin for rate control and cardiomyopathy Tachycardia had resolved. Blood pressure stabilized. Consider initiation of MARCIE inhibitor and or MRA and/or SGLT, 1 at a time. Diabetes with hyperglycemia. Better controlled Adjusting insulin to keep blood sugar between 120 and 180. Continue long-acting insulin, meal insulin and sliding scale. Titrate dose upward to achieve better control. Functional disability. Patient uses a wheelchair at home. Continue PT OT while in the hospital to prevent further decline in his functional status. CKD stage III Kidney function had significantly improved. His creatinine level is better than I have ever seen before on him. At baseline. Continue to monitor kidney function and electrolytes. Chronic medical conditions not listed above, incidental findings seen on labs and imaging. These would need to be addressed. Could be addressed when time and condition are appropriate. Could be addressed in the outpatient setting by PCP collaboration with other needed outpatient providers. Noncompliance. Patient declined to have MRI 04/06, 04/08 and 04/09 delaying his care potentially putting himself at risk of further decompensation. Patient is refusing to allow his nurse take care of him and administer antibiotic today, 04/08 Nursing staff reported that patient is verbally abusive and not compliant with nursing care. His noncompliance and defiance could potentially increase his risk of worsening condition and negative consequences Counseling and education were provided.
[2025-04-10] MEDS: LOSARTAN POTASSIUM 25 MG TABLET PO (12:01)
[2025-04-10] MEDS: LEVOFLOXACIN 750 MG TABLET PO (12:01)
[2025-04-10] MEDS: DIPHENOXYLATE HCL 2.5 MG/ATROPINE 0.025 MG TABLET 2 TAB PO (12:01)
[2025-04-10] MEDS: ACETAMINOPHEN 325 MG TABLET 650 MG PO (12:48)
[2025-04-10] MEDS: OXYCODONE HCL 5 MG TABLET 7.5 MG PO ×2 (12:48→17:28)
[2025-04-10] MEDS: HYDROMORPHONE HCL 0.5 MG/0.5 ML SYRINGE 0.25 MG IVP (14:17)
[2025-04-10] MEDS: TEMAZEPAM 15 MG CAPSULE PO (22:17)
[2025-04-11] VITALS (8 sets, daily range): BP systolic 92–116; BP diastolic 57–74; PULSE 88–100; TEMP 36.4–36.8; O2SAT 90–94
--- NOTE | 2025-04-11 08:10 | CM.NOTE ---
Rounds made with Dr. Richard, discussed with pt discharge planning and skilled care. Talked with pt about participation in PT and OT for approval to skilled therapy. Pt has refused therapy several times during admission. Pt is in agreement to work with PT and OT today. SW updated about skilled needs.
--- NOTE | 2025-04-11 09:39 | SWNOTE1 ---
Pt had been refusing to work with therapy at end of week and over weekend. Pt also having behaviors towards nursing. Physician spoke with patient and per patient he will be participating with therapy and respectful to nursing staff. JOSÉ did reach out to Salud at [facility] to follow up and see if they are open to taking patient. JOSÉ also called [facility], where pt was at in the past. JOSÉ spoke to Helen in admissions. She voiced she will have to speak with clinical team as he was resistant to care during previous stay for skilled. She advised she will call JOSÉ back around 1111:30 after there morning huddle.
[2025-04-11] MEDS: DIGOXIN 125 MCG TABLET 250 MCG PO (09:55)
[2025-04-11] MEDS: METOPROLOL TARTRATE 25 MG TABLET PO ×2 (09:56→21:20)
[2025-04-11] MEDS: COLLAGENASE CLOSTRIDIUM HIST. 250 UNITS/GM 30 GRAM TUBE 1 APPLIC TOPICAL (09:57)
[2025-04-11] MEDS: APIXABAN 5 MG TABLET PO ×2 (09:57→21:21)
[2025-04-11] MEDS: LOSARTAN POTASSIUM 25 MG TABLET PO (09:57)
[2025-04-11] MEDS: LEVOFLOXACIN 750 MG TABLET PO (09:57)
[2025-04-11] MEDS: OXYCODONE HCL 5 MG TABLET 7.5 MG PO (09:57)
[2025-04-11] MEDS: INSULIN GLARGINE 300 UNIT/3 ML INSULN.PEN 40 UNIT SQ ×2 (10:00→21:21)
--- NOTE | 2025-04-11 11:58 | PM.PN ---
Progress Note: Subjective Subjective Interval history: Patient is feeling and looking a lot better. No new symptoms since yesterday. Exam Narrative Exam Narrative: Morbidly obese. Patient is much more awake and coherent than previously reported. Debilitated. Able to lift up his arms against gravity. Barely able to lift up his legs against gravity. He uses a wheelchair at home. Central obesity. Pale skin and buccal mucosa. Chest is clear, heart is irregular. Abdomen is soft, increased abdominal girth therefore clinically I could not exclude the possibility of intra-abdominal mass organomegaly. Lower extremities examination showed bilateral skin exfoliation's, erythema, hyperpigmentation from the knee down to the feet. Patient has unstageable ulcer with the brown drainage measuring about 1 inch and a half on the surface involving the lateral aspect of the right plantar metatarsal. Erythema, induration and drainage. Significantly less drainage than the previously seen. Constitutional Vital Signs, click to edit/add: Last Vital Signs Temp 98.2 F 04/11/25 08:12 Pulse 100 H 04/11/25 10:06 Resp 20 04/11/25 10:06 BP 110/68 04/11/25 10:06 Pulse Ox 90 L 04/11/25 10:36 O2 Del Method High Flow Nasal Cannula 04/11/25 08:12 O2 Flow Rate 7 04/11/25 10:36 FiO2 55 04/07/25 04:00 Progress Note: A&P Assessment and Plan (1) Atrial fibrillation with RVR: (2) Sepsis: Qualifiers: Sepsis type: methicillin resistant Staphylococcus aureus Sepsis acute organ dysfunction status: with acute organ dysfunction Severe sepsis acute organ dysfunction type: acute respiratory failure Acute respiratory failure type: with hypercapnia Severe sepsis shock status: without septic shock Qualified Code(s): A41.02 - Sepsis due to Methicillin resistant Staphylococcus aureus; R65.20 - Severe sepsis without septic shock; J96.02 - Acute respiratory failure with hypercapnia (3) Bacteremia: (4) Diabetic foot ulcer: Qualifiers: Diabetic foot ulcer location: midfoot Diabetes mellitus type: type 2 Laterality: right Non-pressure ulcer stage: with fat layer exposed Qualified Code(s): E11.621 - Type 2 diabetes mellitus with foot ulcer; L97.412 - Non-pressure chronic ulcer of right heel and midfoot with fat layer exposed (5) Osteomyelitis: Qualifiers: Osteomyelitis type: chronic, with draining sinus Osteomyelitis location: foot Laterality: right Qualified Code(s): M86.471 - Chronic osteomyelitis with draining sinus, right ankle and foot (6) Cardiomyopathy: Qualifiers: Cardiomyopathy type: unspecified Qualified Code(s): I42.9 - Cardiomyopathy, unspecified Plan Sepsis, bacteremia present on admission. Resolving. White count, hypotension and tachycardia. All resolved Infected right diabetic foot ulcer, osteomyelitis, probable tissue abscess formation. Blood cultures positive for beta-hemolytic strep. Wound cultures no staph. Positive for beta-hemolytic strep Urine tract infection. Positive culture for Enterobacter Requested MRI of the foot. Patient refused to have an MRI on 04/06 delaying his care. I spent about 15 minutes today trying to convince him otherwise. Finally agreed to proceed with MRI imaging. Patient subsequently refused to have MRI on 04/08. He continues to refuse having MRI of his foot. Podiatry consultation for the possible need of intervention. Single Spindle Screw Machine Operator thus far did not recommend any intervention without patient willingness to have his MRI to understand the foot anatomy better. Requested arterial study rule out arterial disease. Does not show any significant stenosis. Requested venous study rule out DVT. Does not show any DVT. I started patient on combination of vancomycin and Primaxin. Vancomycin was discontinued 2 days ago Looking at the combination of blood, urine and wound cultures as well as sensitivity report. Levaquin is the only antibiotic that the 3 grown bacteria cultures are sensitive to. Discontinued Primaxin and start patient on Levaquin. Monitor QT. A-fib with RVR. Patient has a history of A-fib and cardiomyopathy Last EF was 25%. Repeat echo showed ejection fraction had improved up to 45 % Continue Eliquis. Continue beta-michelle. Increase beta-michelle dose for better control Continue digoxin for rate control and cardiomyopathy Tachycardia had resolved. Blood pressure stabilized. Consider initiation of MARCIE inhibitor and or MRA and/or SGLT, 1 at a time. Diabetes with hyperglycemia. Better controlled Adjusting insulin to keep blood sugar between 120 and 180. Continue long-acting insulin, meal insulin and sliding scale. Titrate dose upward to achieve better control. Functional disability. Patient uses a wheelchair at home. Continue PT OT while in the hospital to prevent further decline in his functional status. CKD stage III Kidney function had significantly improved. His creatinine level is better than I have ever seen before on him. At baseline. Continue to monitor kidney function and electrolytes. Chronic medical conditions not listed above, incidental findings seen on labs and imaging. These would need to be addressed. Could be addressed when time and condition are appropriate. Could be addressed in the outpatient setting by PCP collaboration with other needed outpatient providers. Noncompliance. Patient declined to have MRI 04/06, 04/08 and 04/09 delaying his care potentially putting himself at risk of further decompensation. Patient is refusing to allow his nurse take care of him and administer antibiotic today, 04/08 Nursing staff reported that patient is verbally abusive and not compliant with nursing care. His noncompliance and defiance could potentially increase his risk of worsening condition and negative consequences Counseling and education were provided. Spent about 30 minutes today in collaboration with the nurse Irena trying to convince him to go to a nursing facility. Conversation went [id number] for 30 minutes up until and when patient stated that he is in agreement to go to skilled care. We have to spend countless time trying to negotiate and bargain with the patient to agree to have every test that we order, every process that we have to go through.
--- NOTE | 2025-04-11 12:02 | SWNOTE1 ---
SW received call from [facility] and they voiced to send referral over and they will review. Referral sent to [facility]. Referral included face sheet, ED note, H&P, provider notes, case management report, wound consult, nursing notes, diagnostic imaging, med list, and PT/OT notes.
[2025-04-11] MEDS: INSULIN ASPART 300 UNIT/3 ML PEN SUBQ ×3 (12:19→21:21)
--- NOTE | 2025-04-11 12:19 | SWNOTE1 ---
JOSÉ reached out to Salud at [facility]. She did reach out to administration and they are not able to accept due to aggressiveness and behaviors towards staff.
[2025-04-11] MEDS: INSULIN ASPART 300 UNIT/3 ML PEN 6 UNIT SUBQ ×2 (12:20→16:32)
--- NOTE | 2025-04-11 13:10 | SWNOTE1 ---
SW stopped to speak with pt about discharge planning. SW asked pt if he was open to going to rehab, he voiced I guess. SW did let pt know that [facility] is not able to accept. He asked why not? SW explained that SW sends the referral over and in the referral is pt's behaviors towards the nursing staff. [facility] has concerns about his aggressiveness and behaviors. SW let pt know that SW has sent referral to [facility] since he has been there in the past. Pt voiced frustration and stated to set him up to go home. SW assured pt that SW will keep checking facilities for him and he is not stable for discharge medically at this time. SW did let pt know that SW does have concerns about finding a facility due to aggressiveness and pt's behaviors. Pt stated if someone would walk in his shoes they would understand. SW did attempt to provide support and empathy to pt. SW to keep pt updated in regards to SNF.
--- NOTE | 2025-04-11 14:17 | SWNOTE1 ---
JOSÉ received a call from Helen at [facility] and they do not accept pt's insurance. SW to reach out to [facility] to see if they have any openings.
--- NOTE | 2025-04-11 14:23 | SWNOTE1 ---
JOSÉ called [facility] in [place], they do allow smoking and take his insurance. JOSÉ reached out to [facility] and [facility] to see if they allow smoking, waiting to hear back.
[2025-04-11] MEDS: TEMAZEPAM 15 MG CAPSULE PO (21:21)
[2025-04-12 03:44] VITALS: BP 100/66; PULSE 101; TEMP 36.5; O2SAT 90
[2025-04-12 08:00] VITALS: BP 109/65; PULSE 99; TEMP 36.1; O2SAT 92
--- NOTE | 2025-04-12 08:48 | SWNOTE1 ---
At this time [facility] refused pt due to behaviors. [facility] and [facility] are not in network. [facility] is non smoking as well as [facility]. SW did send referral to [facility] in [place], waiting to hear back. Pt refused to allow SW to send referral to [facility]. [facility] in [place] is non smoking. There are no other facilities in [place]. SW did offer yesterday to look in to [facility], but pt refused to go that far.
--- NOTE | 2025-04-12 09:00 | CM.NOTE ---
Rounds made with JOSÉ Fowler reaching out for skilled facility to accept at discharge. Continue treatment as ordered.
--- NOTE | 2025-04-12 10:29 | SWNOTE1 ---
JOSÉ called [facility] in [place] and [facility] in [facility] was not there today. JOSÉ requested to speak with someone in regards to referral. JOSÉ spoke to Lorie the high school social studies teacher. She voiced it was sent to corporate and she is not heard back from them. JOSÉ provided Andria with SW phone number to call. JOSÉ did reach out to Cristy at [facility] to see if they accept pt's insurance, waiting to hear back.
[2025-04-12 10:32] VITALS: PULSE 86
[2025-04-12] MEDS: METOPROLOL TARTRATE 25 MG TABLET PO (10:32)
[2025-04-12] MEDS: APIXABAN 5 MG TABLET PO (10:32)
[2025-04-12] MEDS: DIGOXIN 125 MCG TABLET 250 MCG PO (10:32)
[2025-04-12] MEDS: INSULIN GLARGINE 300 UNIT/3 ML INSULN.PEN 40 UNIT SQ (10:33)
[2025-04-12] MEDS: LEVOFLOXACIN 750 MG TABLET PO (10:33)
[2025-04-12] MEDS: LOSARTAN POTASSIUM 25 MG TABLET PO (10:33)
[2025-04-12] MEDS: COLLAGENASE CLOSTRIDIUM HIST. 250 UNITS/GM 30 GRAM TUBE 1 APPLIC TOPICAL (10:34)
--- NOTE | 2025-04-12 10:40 | P.PN_ITS ---
Progress Note: Subjective Subjective Interval history: Patient is feeling and looking a lot better. No new symptoms since yesterday. Exam Narrative Exam Narrative: Morbidly obese. Patient is much more awake and coherent than previously reported. Debilitated. Able to lift up his arms against gravity. Barely able to lift up his legs against gravity. He uses a wheelchair at home. Central obesity. Pale skin and buccal mucosa. Chest is clear, heart is irregular. Abdomen is soft, increased abdominal girth therefore clinically I could not exclude the possibility of intra-abdominal mass organomegaly. Lower extremities examination showed bilateral skin exfoliation's, erythema, hyperpigmentation from the knee down to the feet. Patient has unstageable ulcer with the brown drainage measuring about 1 inch and a half on the surface involving the lateral aspect of the right plantar metatarsal. Erythema, induration and drainage. Significantly less drainage than the previously seen. No climate change analyst the last 48 hours Constitutional Vital Signs, click to edit/add: Last Vital Signs Temp 97.0 F L 04/12/25 08:00 Pulse 99 H 04/12/25 08:00 Resp 18 04/12/25 08:00 BP 109/65 04/12/25 08:00 Pulse Ox 92 L 04/12/25 08:00 O2 Del Method High Flow Nasal Cannula 04/12/25 08:00 O2 Flow Rate 7 04/12/25 08:00 FiO2 55 04/07/25 04:00 Progress Note: A&P Assessment and Plan (1) Atrial fibrillation with RVR: (2) Sepsis: Qualifiers: Sepsis type: methicillin resistant Staphylococcus aureus Sepsis acute organ dysfunction status: with acute organ dysfunction Severe sepsis acute organ dysfunction type: acute respiratory failure Acute respiratory failure type: with hypercapnia Severe sepsis shock status: without septic shock Qualified Code(s): A41.02 - Sepsis due to Methicillin resistant Staphylococcus aureus; R65.20 - Severe sepsis without septic shock; J96.02 - Acute respiratory failure with hypercapnia (3) Bacteremia: (4) Diabetic foot ulcer: Qualifiers: Diabetic foot ulcer location: midfoot Diabetes mellitus type: type 2 Laterality: right Non-pressure ulcer stage: with fat layer exposed Qualified Code(s): E11.621 - Type 2 diabetes mellitus with foot ulcer; L97.412 - Non- pressure chronic ulcer of right heel and midfoot with fat layer exposed (5) Osteomyelitis: Qualifiers: Osteomyelitis type: chronic, with draining sinus Osteomyelitis location: foot Laterality: right Qualified Code(s): M86.471 - Chronic osteomyelitis with draining sinus, right ankle and foot (6) Cardiomyopathy: Qualifiers: Cardiomyopathy type: unspecified Qualified Code(s): I42.9 - Cardiomyopathy, unspecified Plan Sepsis, bacteremia present on admission. Resolving. White count, hypotension and tachycardia. All resolved Infected right diabetic foot ulcer, osteomyelitis, probable tissue abscess formation. Unfortunately, patient continues to refuse to have MRI to take a better look at the soft tissue and bone. Blood cultures positive for beta-hemolytic strep. Wound cultures no staph. Positive for beta-hemolytic strep Urine tract infection. Positive culture for Enterobacter Requested MRI of the foot. Patient refused to have an MRI on 04/06 delaying his care. I spent about 15 minutes today trying to convince him otherwise. Finally agreed to proceed with MRI imaging. Patient subsequently refused to have MRI on 04/08. He continues to refuse having MRI of his foot. Podiatry consultation for the possible need of intervention. [employer] thus far did not recommend any intervention without patient willingness to have his MRI to understand the foot anatomy better. Requested arterial study rule out arterial disease. Does not show any significant stenosis. Requested venous study rule out DVT. Does not show any DVT. I started patient on combination of vancomycin and Primaxin. Vancomycin was discontinued 2 days ago Looking at the combination of blood, urine and wound cultures as well as sensitivity report. Levaquin is the only antibiotic that the 3 grown bacteria cultures are sensitive to. Discontinued Primaxin and start patient on Levaquin. Monitor QT. Patient is refusing to wear the telemetry monitoring. A-fib with RVR. Patient has a history of A-fib and cardiomyopathy Last EF was 25%. Repeat echo showed ejection fraction had improved up to 45 % Continue Eliquis. Continue beta-michelle. Increase beta-michelle dose for better control Continue digoxin for rate control and cardiomyopathy Tachycardia had resolved. Blood pressure stabilized but continues to be on the low side. Avoid using MARCIE, ARB, ARNI and SGLT2. Consider initiation of small dose of MRA. Diabetes with hyperglycemia. Better controlled Adjusting insulin to keep blood sugar between 120 and 180. Continue long-acting insulin, meal insulin and sliding scale. Titrate dose upward to achieve better control. Increased Lantus to 45 units twice a day on 9/23 Functional disability. Patient uses a wheelchair at home. Continue PT OT while in the hospital to prevent further decline in his functional status. 3 facilities had declined to take him for skilled care due to his behavioral problems. Waiting on the fourth facility to see if they will be willing to take him. If the fourth 1 does not accept him and patient is not willing to go far away then we will discharge him home with home health care. CKD stage III Kidney function had significantly improved. His creatinine level is better than I have ever seen before on him. At baseline. Continue to monitor kidney function and electrolytes. Chronic medical conditions not listed above, incidental findings seen on labs and imaging. These would need to be addressed. Could be addressed when time and condition are appropriate. Could be addressed in the outpatient setting by PCP collaboration with other needed outpatient providers. Noncompliance. Patient declined to have MRI 04/06, 04/08 and 04/09 delaying his care potentially putting himself at risk of further decompensation. Patient is refusing to allow his nurse take care of him and administer antibiotic today, 04/08 Nursing staff reported that patient is verbally abusive and not compliant with nursing care. His noncompliance and defiance could potentially increase his risk of worsening condition and negative consequences Counseling and education were provided. Spent about 30 minutes today in collaboration with the nurse Osborn trying to convince him to go to a nursing facility. Conversation went [id number] for 30 minutes up until and when patient stated that he is in agreement to go to skilled care. We have to spend countless time trying to negotiate and bargain with the patient to agree to have every test that we order, every process that we have to go through.
[2025-04-12 11:17] LABS: Hematocrit 43.4 % (42.0-54.0); Hemoglobin 13.6 g/dL (14.0-18.0); Mean Corpuscular HGB Conc 31.3 g/dL (29.9-35.2); Mean Corpuscular Hemoglobin 31.1 pg (25.9-34.0); Mean Corpuscular Volume 99.3 fL (80.0-94.0); Platelet Count 321 10^3/uL (150-450); Red Blood Count 4.37 10^6/uL (4.70-6.10); White Blood Count 10.1 10^3/uL (4.0-11.0)
[2025-04-12 11:26] LABS: Anion Gap 3.9; Blood Urea Nitrogen 17.0 mg/dL (7.0-18.0); Calcium 9.8 mg/dL (8.5-10.1); Carbon Dioxide 40.3 mmol/L (21.0-32.0); Chloride 100 mmol/L (98-107); Estimated GFR (African America >60 (>=60 mL/min/1.73m^2); Estimated GFR (Non-African Ame >60 (>=60 mL/min/1.73m^2); Glucose 229 mg/dL (74-106); Potassium 5.2 mmol/L (3.5-5.1); Sodium 139 mmol/L (136-145)
[2025-04-12] MEDS: SPIRONOLACTONE 25 MG TABLET 12.5 MG PO (11:38)
[2025-04-12] MEDS: INSULIN ASPART 300 UNIT/3 ML PEN SUBQ (11:39)
[2025-04-12] MEDS: INSULIN ASPART 300 UNIT/3 ML PEN 6 UNIT SUBQ (11:39)
[2025-04-12 11:48] VITALS: BP 114/71; PULSE 89; TEMP 36.8; O2SAT 91
--- NOTE | 2025-04-12 12:04 | SWNOTE1 ---
Cristy at [facility] did reach back out and they do take [employer] and allow smoking. Referral sent to [facility]. Referral included face sheet, ED note, H&P, provider notes, case management report, wound consult, nursing notes, diagnostic imaging, med list, and PT/OT notes.
--- NOTE | 2025-04-12 13:43 | SWNOTE1 ---
JOSÉ called and spoke with Andria at [facility] and they are still waiting on corporate to get back to them.
--- NOTE | 2025-04-12 14:05 | PM.EN ---
Event Note Event Note: While 3 nurses trying to help patient use the bedside commode, moving him from the bed using Quan lift, patient started screaming and using inappropriate language towards nursing staff. I went to the room and provided patient additional counseling and education to respect nurses and treat them with dignity and appreciation.
[2025-04-12 15:16] VITALS: BP 116/76; PULSE 102; TEMP 36.7; O2SAT 91
--- NOTE | 2025-04-12 15:42 | SWNOTE1 ---
SW went in to room with Ramona, Director of med/surge floor. Pt was sleeping, SW woke pt up. SW let pt know that SW was stopping back to speak with pt about rehab. SW asked pt if he still wanted to go to rehab. Pt voiced he wants to go home. SW let pt know that his 2 options are going to rehab or signing himself against medical advice. Pt stated he wants to go home. Pt requested to speak with Dr. Richard. Dr. Richard was called and spoke to pt in room. Pt did decide he is going to sign himself out AMA. Transport will be set up to get him in to his home to his wheelchair. He will need follow up scheduled with PCP. Physician did ask about home care, SW advised he kicked out home care 2 times in past. JOSÉ called Samara, press secretary on med/surge and she is setting up apt with PCP. JOSÉ called [facility] and they can be here at 6:30, JOSÉ notified nurse. JOSÉ called [facility] and they can not be here until 9/10pm. JOSÉ kept [facility].
--- NOTE | 2025-04-12 16:34 | P.DS_ITS ---
DS: Providers Provider Date of admission: 04/08/25 13:33 Primary care physician: GARRETT QUINTANA Consults: 04/05/25 20:32 Consult to Podiatry Routine Consulting Provider: Rc Curtis Reason for consultation: Foot infection probable osteo 04/06/25 Physical Therapy Eval and Treat Routine Reason for consultation: weakness 04/07/25 Occupational Therapy Eval and Treat Routine Reason for consultation: weakness - refused OT eval 04/08/25 DS: Diagnosis Discharge Diagnosis (1) Atrial fibrillation with RVR: (2) Sepsis: Qualifiers: Sepsis type: methicillin resistant Staphylococcus aureus Sepsis acute organ dysfunction status: with acute organ dysfunction Severe sepsis acute organ dysfunction type: acute respiratory failure Acute respiratory failure type: with hypercapnia Severe sepsis shock status: without septic shock Qualified Code(s): A41.02 - Sepsis due to Methicillin resistant Staphylococcus aureus; R65.20 - Severe sepsis without septic shock; J96.02 - Acute respiratory failure with hypercapnia (3) Bacteremia: (4) Diabetic foot ulcer: Qualifiers: Diabetic foot ulcer location: midfoot Diabetes mellitus type: type 2 Laterality: right Non-pressure ulcer stage: with fat layer exposed Qualified Code(s): E11.621 - Type 2 diabetes mellitus with foot ulcer; L97.412 - Non- pressure chronic ulcer of right heel and midfoot with fat layer exposed (5) Osteomyelitis: Qualifiers: Osteomyelitis type: chronic, with draining sinus Osteomyelitis location: foot Laterality: right Qualified Code(s): M86.471 - Chronic osteomyelitis with draining sinus, right ankle and foot (6) Cardiomyopathy: Qualifiers: Cardiomyopathy type: unspecified Qualified Code(s): I42.9 - Cardiomyopathy, unspecified Plan As listed above, below and others that are not listed DS: Summary Hospital Course Hospital Course: Mr. Mckinney is a 64-year-old gentleman who came in not feeling well and was found to have the following: Sepsis, bacteremia present on admission. Resolving. White count, hypotension and tachycardia. All resolved Infected right diabetic foot ulcer, osteomyelitis, probable tissue abscess formation. Unfortunately, patient continues to refuse to have MRI to take a better look at the soft tissue and bone. Blood cultures positive for beta-hemolytic strep. Wound cultures no staph. Positive for beta-hemolytic strep Urine tract infection. Positive culture for Enterobacter Requested MRI of the foot. Patient refused to have an MRI on 04/06 delaying his care. I spent about 15 minutes today trying to convince him otherwise. Finally agreed to proceed with MRI imaging. Patient subsequently refused to have MRI on 04/08. He continues to refuse having MRI of his foot. Podiatry consultation for the possible need of intervention. Super[employer] thus far did not recommend any intervention without patient willingness to have his MRI to understand the foot anatomy better. Requested arterial study rule out arterial disease. Does not show any significant stenosis. Requested venous study rule out DVT. Does not show any DVT. I started patient on combination of vancomycin and Primaxin. Vancomycin was discontinued 2 days ago Looking at the combination of blood, urine and wound cultures as well as sensitivity report. Levaquin is the only antibiotic that the 3 grown bacteria cultures are sensitive to. Discontinued Primaxin and start patient on Levaquin. Monitor QT. Patient is refusing to wear the telemetry monitoring. A-fib with RVR. Patient has a history of A-fib and cardiomyopathy Last EF was 25%. Repeat echo showed ejection fraction had improved up to 45 % Continue Eliquis. Continue beta-michelle. Increase beta-michelle dose for better control Continue digoxin for rate control and cardiomyopathy Tachycardia had resolved. Blood pressure stabilized but continues to be on the low side. Avoid using MARCIE, ARB, ARNI and SGLT2. Consider initiation of small dose of MRA. Diabetes with hyperglycemia. Better controlled Adjusting insulin to keep blood sugar between 120 and 180. Continue long-acting insulin, meal insulin and sliding scale. Titrate dose upward to achieve better control. Increased Lantus to 45 units twice a day on 04/12 Functional disability. Patient uses a wheelchair at home. Continue PT OT while in the hospital to prevent further decline in his functional status. 3 facilities had declined to take him for skilled care due to his behavioral problems. Waiting on the fourth facility to see if they will be willing to take him. If the fourth 1 does not accept him and patient is not willing to go far away then we will discharge him home with home health care. CKD stage III Kidney function had significantly improved. His creatinine level is better than I have ever seen before on him. At baseline. Continue to monitor kidney function and electrolytes. Chronic medical conditions not listed above, incidental findings seen on labs and imaging. These would need to be addressed. Could be addressed when time and condition are appropriate. Could be addressed in the outpatient setting by PCP collaboration with other needed outpatient providers. Noncompliance. Patient declined to have MRI 04/06, 04/08 and 04/09 delaying his care potentially putting himself at risk of further decompensation. Patient is refusing to allow his nurse take care of him and administer antibiotic today, 04/08 Nursing staff reported that patient is verbally abusive and not compliant with nursing care. His noncompliance and defiance could potentially increase his risk of worsening condition and negative consequences Counseling and education were provided. Spent about 30 minutes today in collaboration with the nurse Irena trying to convince him to go to a nursing facility. Conversation went [id number] for 30 minutes up until and when patient stated that he is in agreement to go to skilled care. We have to spend countless time trying to negotiate and bargain with the patient to agree to have every test that we order, every process that we have to go through. He is frustrated that 3 facilities had rejected to accept him therefore he decided to leave AMA. I made it very clear to patient in simple layman's terms that by signing AMA, Ivana myself would not be responsible for any potential negative implications that could result out of this decision to leave AMA. These negative con sequences may include but not limited to progressive sepsis, organ failure, progressive leg infection that may needing to have above ankle amputation, permanent disability, psychological distress, even . Patient understood potential negative consequences very well but insisted on going home. At this time, I do not have legal authority to keep patient in hospital against as well. Time Spent with Patient Time attestation: Total time spent providing and/or coordinating discharge services: Exam Constitutional Vital Signs, click to edit/add: Last Vital Signs Temp 98.1 F 04/12/25 15:16 Pulse 102 H 04/12/25 15:16 Resp 18 04/12/25 15:16 BP 116/76 04/12/25 15:16 Pulse Ox 91 L 04/12/25 15:16 O2 Del Method Nasal Cannula 04/12/25 15:16 O2 Flow Rate 5 04/12/25 15:16 FiO2 55 04/07/25 04:00 DS: Data Data Completed and Pending Labs on day of discharge: Labs from last 24 hours 04/12/25 04/12/25 04/12/25 11:36 11:04 07:33 WBC 10.1 RBC 4.37 L Hgb 13.6 L Hct 43.4 MCV 99.3 H MCH 31.1 MCHC 31.3 RDW 15.1 H Plt Count 321 MPV 10.1 Sodium 139 Potassium 5.2 H Chloride 100 Carbon Dioxide 40.3 H Anion Gap 3.9 BUN 17.0 Creatinine 0.89 Est GFR ( Amer) >60 Est GFR (Non-Af Amer) >60 BUN/Creatinine Ratio 19.1 Glucose 229 H Calcium 9.8 POC Glucose 212 H 132 H 04/11/25 21:20 WBC RBC Hgb Hct MCV MCH MCHC RDW Plt Count MPV Sodium Potassium Chloride Carbon Dioxide Anion Gap BUN Creatinine Est GFR ( Amer) Est GFR (Non-Af Amer) BUN/Creatinine Ratio Glucose Calcium POC Glucose 303 H Preliminary micro results at discharge 04/09/25 13:37 Blood Culture Result 2 - Preliminary Blood NO GROWTH AT 36-48 HOURS. FINAL TO FOLLOW. 04/09/25 13:31 Blood Culture Result 1 - Preliminary Blood NO GROWTH AT 36-48 HOURS. FINAL TO FOLLOW. Discharge Plan Discharge Disposition: Home, Self-Care Condition: Fair Discharge Medications: New losartan 25 mg Tablet 25 mg PO QD Qty: 30 0RF metoprolol tartrate 25 mg Tablet 25 mg PO BID Qty: 60 0RF digoxin 250 mcg (0.25 mg) tablet 250 mcg PO DAILY Qty: 30 2RF levofloxacin 500 mg tablet 500 mg PO DAILY 15 Days Qty: 15 0RF Continued (DME) pen needle, diabetic 31 gauge x 5/16 needle See Rx Instructions .Route Qty: 50 0RF Rx Instructions: once daily gabapentin 300 mg capsule 600 mg PO .QHS atorvastatin 80 mg tablet 80 mg PO .QHS Qty: 30 0RF Eliquis 5 mg tablet 5 mg PO BID Qty: 60 0RF Changed insulin glargine [Lantus Solostar U-100 Insulin] 100 unit/mL (3 mL) insulin pen 45 unit SUBCUT BID Qty: 0 0RF Discontinued glipizide 5 mg tablet 5 mg PO BID Qty: 60 0RF Rx Instructions: Use within 30 minutes of meal furosemide 40 mg tablet 40 mg PO DAILY quetiapine 100 mg tablet 100 mg PO .QHS metoprolol tartrate 50 mg tablet 50 mg PO BID Print Language: Nepali Activity Restrictions/Additional Instructions: You decided to leave AMA therefore I may not have addressed or treated all of your medical illnesses or the abnormal blood work or imaging studies during this hospitalization. Please ask your primary care provider to obtain [facility] records entirely to follow up on all of the abnormal physical, laboratory, and imaging findings that I have not addressed. By signing AGAINST MEDICAL ADVICE, Ivana or myself are not responsible for any potential negative consequences that could result out of your decision to leave against our advice. Negative consequences and implications may include but not limited to worsening infection, worsening sepsis, septic shock, organ failure, permanent disability, psychological distress, emotional distress and even . Please return back to the emergency room or seek medical attention if your symptoms worsen or return. Discharging you from [facility] does not mean that your medical care ends here and now. You may still need additional monitoring, work up, investigation, and treatment plan to be handled from this point on by out patient providers including your primary care provider and specialists. For any medication question, please contact your retail pharmacist or your primary care provider. Thank you. Forms: Portal Instructions Follow Up Appointments: CRISTY Mondragon Apr 19, 2025 at 11:00. [facility],
--- NOTE | 2025-04-13 16:23 | SWNOTE1 ---
JOSÉ did get an email from Cristy at [facility] and they did refuse referral due to non-compliance and verbal abuse. JOSÉ did advise he left AMA.
--- OUTSIDE RECORDS SUMMARY | 2025-04-14 10:30 | XMS_ITS | Clinical Summary ---
Author Organization [facility] Address [address] [place] [id number] Care Team Providers Care Contact Center Manager Name Role Phone No, Physician Primary [...] - 1-dose 75+ series) 2033 Care Teams Contact Center Manager Relationship Specialty Start Date End Date No, Physician [facility] PCP - General 10/04/16
--- OUTSIDE RECORDS SUMMARY | 2025-04-14 10:30 | XMS_ITS | Encounter Summary ---
Author Organization [facility] Address [address] [place] [address] Care Team Providers Care System Analyst Name Role Phone Dara Eisenberg ONLINE JOURNALIST Primary Care Provider Encounter Details Date Type Department Care Team ([facility] Contact Info) Description 01/26/2025 Abstract [facility] [address] [place] [id number] Sina Mckeon, DPM FACFAS [address] [place] [address] Social History Tobacco Use Types Packs/Day Years [...] on filedocumented in this encounter Care Teams System Analyst Relationship Specialty Start Date End Date Dara Eisenberg NP [address] [facility] [address] [address] [place] [address] PCP - General Family Medicine 11/11/24 documented as of this encounter
--- OUTSIDE RECORDS SUMMARY | 2025-04-14 10:30 | XMS_ITS | Patient Health Record ---
Author Organization [facility] in [place] Address [address] [place] [address] Care Team Providers Care Flap Curer Name Role Phone Dara Eisenberg CNP Primary Care Provider U navailable Results Component Value Reference Range Notes Aerobic Culture (Not yet rev iewed by provider) Interpretation: Performing Lab: Notes/Report: LEFT LOWER LEG WOUND [facility] , Aerobic Culture See Below For Report O:MRSA Aerobic Culture Organism: Staphylococcus aureus : Antibiotic Interpretation CHEN Status Isolated O:STAAUR Isolated Organism: 1.1 Aerobic Culture *ABNORMAL* O:MRSA Aerobic Culture Organism: Staphylococcus aureus : Antibiotic Interpretation CHEN Status Isolated O:STAAUR Isolated Organism: 1.1 Aerobic Culture Moderate growth O:MRSA Aerobic Culture Organism: Staphylococcus aureus : Antibiotic Interpretation CHEN Status Isolated O:STAAUR Isolated Organism: 1.1 Aerobic Culture Staphylococcus aureus O:MRSA Aerobic Culture Organism: Staphylococcus aureus : Antibiotic Interpretation CHEN Status Isolated O:STAAUR Isolated Organism: 1.1 Aerobic Culture Organism: Methicilli n Resis Staph Aureus : O:MRSA Aerobic Culture Organism: Staphylococcus aureus : Antibiotic Interpretation CHEN Status Isolated O:STAAUR Isolated Organism: 1.1 Aerobic Culture *ABNORMAL* O:MRSA Aerobic Culture Organism: Staphylococcus aureus : Antibiotic Interpretation CHEN Status Isolated O:STAAUR Isolated Organism: 1.1 Aerobic Culture Methicillin - resistant O:MRSA Aerobic Culture Organism: Staphylococcus aureus : Antibiotic Interpretation CHEN Status Isolated O:STAAUR Isolated Organism: 1.1 Aerobic Culture Based on resistance to oxacillin this isolate would be O:MRSA Aerobic Culture Organism: Staphylococcus aureus : Antibiotic Interpretation CHEN Status Isolated O:STAAUR Isolated Organism: 1.1 Aerobic Culture resistant to all currently available beta-lactam O:MRSA Aerobic Culture Organism: Staphylococcus aureus : Antibiotic Interpretation CHEN Status Isolated O:STAAUR Isolated Organism: 1.1 Aerobic Culture antimicrobial agents , with the exception of the newer O:MRSA Aerobic Culture Organism: Staphylococcus aureus : Antibiotic Interpretation CHEN Status Isolated O:STAAUR Isolated Organism: 1.1 Aerobic Culture cephalosporins with anti-MRSA activity, such as O:MRSA Aerobic Culture Organism: Staphylococcus aureus : Antibiotic Interpretation CHEN Status Isolated O:STAAUR Isolated Organism: 1.1 Aerobic Culture Ceftaroline O:MRSA Aerobic Culture Organism: Staphylococcus aureus : Antibiotic Interpretation CHEN Status Isolated O:STAAUR Isolated Organism: 1.1 Aerobic Culture Moderate growth O:MRSA Aerobic Culture Organism: Staphylococcus aureus : Antibiotic Interpretation CHEN Status Isolated O:STAAUR Isolated Organism: 1.1 Aerobic Culture Methicillin Resis St aph Aureus O:MRSA Aerobic Culture Organism: Staphylococcus aureus : Antibiotic Interpretation CHEN Status Isolated O:STAAUR Isolated Organism: 1.1 Aerobic Culture See Below For Report O:MRSA Aerobic Culture Organism: Staphylococcus aureus : Antibiotic Interpretation CHEN Status Isolated O:STAAUR Isolated Organism: 1.1 Aerobic Culture See Below For Report O:MRSA Aerobic Culture Organism: Staphylococcus aureus : Antibiotic Interpretation CHEN Status Isolated O:STAAUR Isolated Organism: 1.1 Aerobic Culture Performed at: [facility] O:MRSA Aerobic Culture Organism: Staphylococcus aureus : Antibiotic Interpretation CHEN Status Isolated O:STAAUR Isolated Organism: 1.1 Aerobic Culture [address], [place] [id number] O:MRSA Aerobic Culture Organism: Staphylococcus aureus : Antibiotic Interpretation CHEN Status Isolated O:STAAUR Isolated Organism: 1.1 Aerobic Culture Bias Machine Operator: Yung Saeed PhD, Phone: [phone] O:MRSA Aerobic Culture Organism: Staphylococcus aureus : Antibiotic Interpretation CHEN Status Isolated O:STAAUR Isolated Organism: 1.1 Aerobic Culture See Below For Report O:MRSA Aerobic Culture Organism: Staphylococcus aureus : Antibiotic Interpretation CHEN Status Isolated O:STAAUR Isolated Organism: 1.1 Aerobic Culture Ciprofloxacin R F O:MRSA Aerobic Culture Organism: Staphylococcus aureus : Antibiotic Interpretation CHEN Status Isolated O:STAAUR Isolated Organism: 1.1 Aerobic Culture Erythromycin R F O:MRSA Aerobic Culture Organism: Staphylococcus aureus : Antibiotic Interpretation CHEN Status Isolated O:STAAUR Isolated Organism: 1.1 Aerobic Culture Gentamicin S F O:MRSA Aerobic Culture Organism: Staphylococcus aureus : Antibiotic Interpretation CHEN Status Isolated O:STAAUR Isolated Organism: 1.1 Aerobic Culture Levofloxacin R F O:MRSA Aerobic Culture Organism: Staphylococcus aureus : Antibiotic Interpretation CHEN Status Isolated O:STAAUR Isolated Organism: 1.1 Aerobic Culture Linezolid S F O:MRSA Aerobic Culture Organism: Staphylococcus aureus : Antibiotic Interpretation CHEN Status Isolated O:STAAUR Isolated Organism: 1.1 Aerobic Culture Oxacillin R F O:MRSA Aerobic Culture Organism: Staphylococcus aureus : Antibiotic Interpretation CHEN Status Isolated O:STAAUR Isolated Organism: 1.1 Aerobic Culture Penicillin R F O:MRSA Aerobic Culture Organism: Staphylococcus aureus : Antibiotic Interpretation CHEN Status Isolated O:STAAUR Isolated Organism: 1.1 Aerobic Culture Rifampin S F O:MRSA Aerobic Culture Organism: Staphylococcus aureus : Antibiotic Interpretation CHEN Status Isolated O:STAAUR Isolated Organism: 1.1 Aerobic Culture Tetracycline S F O:MRSA Aerobic Culture Organism: Staphylococcus aureus : Antibiotic Interpretation CHEN Status Isolated O:STAAUR Isolated Organism: 1.1 Aerobic Culture Trimethoprim/Sulfame thox azole R F O:MRSA Aerobic Culture Organism: Staphylococcus aureus : Antibiotic Interpretation CHEN Status Isolated O:STAAUR Isolated Organism: 1.1 Aerobic Culture Vancomycin S F O:MRSA Aerobic Culture Organism: Staphylococcus aureus : Antibiotic Interpretation CHEN Status Isolated O:STAAUR Isolated Organism: 1.1 Aerobic Culture Clindamycin S F O:MRSA Aerobic Culture Organism: Staphylococcus aureus : Antibiotic Interpretation CHEN Status Isolated O:STAAUR Isolated Organism: 1.1 Performing Lab: see note SEE REPORT - Aluminum Shingle Roofer Id information not found for OBX-specific moving picture producer legend LC - [facility] Aerobic Culture (Not yet rev iewed by provider) Interpretation: Performing Lab: Notes/Report: LEFT LOWER LEG WOUND [facility] , Aerobic Culture See Below For Report Clindamycin S F O:MRSA Antibiotic Interpretation CHEN Status Penicillin R F Levofloxacin Clindamycin Tetracycline Vancomycin Linezolid S F Erythromycin R F Trimethoprim/Sulfamethox azole R F Levofloxacin R F Tetracycline S F Rifampin S F Organism: Staphylococcus aureus : Ciprofloxacin R F Oxacillin R F Gentamicin S F Vancomycin S F Organism: 2.1 Linezolid Erythromycin Isolated O:STAAUR Ciprofloxacin Oxacillin Gentamicin Isolated Aerobic Culture Rifampin Trimethoprim/Sulfamethox azole Penicillin Aerobic Culture *ABNORMAL* Clindamycin S F O:MRSA Antibiotic Interpretation CHEN Status Penicillin R F Levofloxacin Clindamycin Tetracycline Vancomycin Linezolid S F Erythromycin R F Trimethoprim/Sulfamethox azole R F Levofloxacin R F Tetracycline S F Rifampin S F Organism: Staphylococcus aureus : Ciprofloxacin R F Oxacillin R F Gentamicin S F Vancomycin S F Organism: 2.1 Linezolid Erythromycin Isolated O:STAAUR Ciprofloxacin Oxacillin Gentamicin Isolated Aerobic Culture Rifampin Trimethoprim/Sulfamethox azole Penicillin Aerobic Culture Moderate growth Clindamycin S F O:MRSA Antibiotic Interpretation CHEN Status Penicillin R F Levofloxacin Clindamycin Tetracycline Vancomycin Linezolid S F Erythromycin R F Trimethoprim/Sulfamethox azole R F Levofloxacin R F Tetracycline S F Rifampin S F Organism: Staphylococcus aureus : Ciprofloxacin R F Oxacillin R F Gentamicin S F Vancomycin S F Organism: 2.1 Linezolid Erythromycin Isolated O:STAAUR Ciprofloxacin Oxacillin Gentamicin Isolated Aerobic Culture Rifampin Trimethoprim/Sulfamethox azole Penicillin Aerobic Culture Staphylococcus aureus Clindamycin S F O:MRSA Antibiotic Interpretation CHEN Status Penicillin R F Levofloxacin Clindamycin Tetracycline Vancomycin Linezolid S F Erythromycin R F Trimethoprim/Sulfamethox azole R F Levofloxacin R F Tetracycline S F Rifampin S F Organism: Staphylococcus aureus : Ciprofloxacin R F Oxacillin R F Gentamicin S F Vancomycin S F Organism: 2.1 Linezolid Erythromycin Isolated O:STAAUR Ciprofloxacin Oxacillin Gentamicin Isolated Aerobic Culture Rifampin Trimethoprim/Sulfamethox azole Penicillin Aerobic Culture Organism: Methicilli n Resis Staph Aureus : Clindamycin S F O:MRSA Antibiotic Interpretation CHEN Status Penicillin R F Levofloxacin Clindamycin Tetracycline Vancomycin Linezolid S F Erythromycin R F Trimethoprim/Sulfamethox azole R F Levofloxacin R F Tetracycline S F Rifampin S F Organism: Staphylococcus aureus : Ciprofloxacin R F Oxacillin R F Gentamicin S F Vancomycin S F Organism: 2.1 Linezolid Erythromycin Isolated O:STAAUR Ciprofloxacin Oxacillin Gentamicin Isolated Aerobic Culture Rifampin Trimethoprim/Sulfamethox azole Penicillin Aerobic Culture *ABNORMAL* Clindamycin S F O:MRSA Antibiotic Interpretation CHEN Status Penicillin R F Levofloxacin Clindamycin Tetracycline Vancomycin Linezolid S F Erythromycin R F Trimethoprim/Sulfamethox azole R F Levofloxacin R F Tetracycline S F Rifampin S F Organism: Staphylococcus aureus : Ciprofloxacin R F Oxacillin R F Gentamicin S F Vancomycin S F Organism: 2.1 Linezolid Erythromycin Isolated O:STAAUR Ciprofloxacin Oxacillin Gentamicin Isolated Aerobic Culture Rifampin Trimethoprim/Sulfamethox azole Penicillin Aerobic Culture Methicillin - resistant Clindamycin S F O:MRSA Antibiotic Interpretation CHEN Status Penicillin R F Levofloxacin Clindamycin Tetracycline Vancomycin Linezolid S F Erythromycin R F Trimethoprim/Sulfamethox azole R F Levofloxacin R F Tetracycline S F Rifampin S F Organism: Staphylococcus aureus : Ciprofloxacin R F Oxacillin R F Gentamicin S F Vancomycin S F Organism: 2.1 Linezolid Erythromycin Isolated O:STAAUR Ciprofloxacin Oxacillin Gentamicin Isolated Aerobic Culture Rifampin Trimethoprim/Sulfamethox azole Penicillin Aerobic Culture Based on resistance to oxacillin this isolate would be Clindamycin S F O:MRSA Antibiotic Interpretation CHEN Status Penicillin R F Levofloxacin Clindamycin Tetracycline Vancomycin Linezolid S F Erythromycin R F Trimethoprim/Sulfamethox azole R F Levofloxacin R F Tetracycline S F Rifampin S F Organism: Staphylococcus aureus : Ciprofloxacin R F Oxacillin R F Gentamicin S F Vancomycin S F Organism: 2.1 Linezolid Erythromycin Isolated O:STAAUR Ciprofloxacin Oxacillin Gentamicin Isolated Aerobic Culture Rifampin Trimethoprim/Sulfamethox azole Penicillin Aerobic Culture resistant to all currently available beta-lactam Clindamycin S F O:MRSA Antibiotic Interpretation CHEN Status Penicillin R F Levofloxacin Clindamycin Tetracycline Vancomycin Linezolid S F Erythromycin R F Trimethoprim/Sulfamethox azole R F Levofloxacin R F Tetracycline S F Rifampin S F Organism: Staphylococcus aureus : Ciprofloxacin R F Oxacillin R F Gentamicin S F Vancomycin S F Organism: 2.1 Linezolid Erythromycin Isolated O:STAAUR Ciprofloxacin Oxacillin Gentamicin Isolated Aerobic Culture Rifampin Trimethoprim/Sulfamethox azole Penicillin Aerobic Culture antimicrobial agents , with the exception of the newer Clindamycin S F O:MRSA Antibiotic Interpretation CHEN Status Penicillin R F Levofloxacin Clindamycin Tetracycline Vancomycin Linezolid S F Erythromycin R F Trimethoprim/Sulfamethox azole R F Levofloxacin R F Tetracycline S F Rifampin S F Organism: Staphylococcus aureus : Ciprofloxacin R F Oxacillin R F Gentamicin S F Vancomycin S F Organism: 2.1 Linezolid Erythromycin Isolated O:STAAUR Ciprofloxacin Oxacillin Gentamicin Isolated Aerobic Culture Rifampin Trimethoprim/Sulfamethox azole Penicillin Aerobic Culture cephalosporins with anti-MRSA activity, such as Clindamycin S F O:MRSA Antibiotic Interpretation CHEN Status Penicillin R F Levofloxacin Clindamycin Tetracycline Vancomycin Linezolid S F Erythromycin R F Trimethoprim/Sulfamethox azole R F Levofloxacin R F Tetracycline S F Rifampin S F Organism: Staphylococcus aureus : Ciprofloxacin R F Oxacillin R F Gentamicin S F Vancomycin S F Organism: 2.1 Linezolid Erythromycin Isolated O:STAAUR Ciprofloxacin Oxacillin Gentamicin Isolated Aerobic Culture Rifampin Trimethoprim/Sulfamethox azole Penicillin Aerobic Culture Ceftaroline Clindamycin S F O:MRSA Antibiotic Interpretation CHEN Status Penicillin R F Levofloxacin Clindamycin Tetracycline Vancomycin Linezolid S F Erythromycin R F Trimethoprim/Sulfamethox azole R F Levofloxacin R F Tetracycline S F Rifampin S F Organism: Staphylococcus aureus : Ciprofloxacin R F Oxacillin R F Gentamicin S F Vancomycin S F Organism: 2.1 Linezolid Erythromycin Isolated O:STAAUR Ciprofloxacin Oxacillin Gentamicin Isolated Aerobic Culture Rifampin Trimethoprim/Sulfamethox azole Penicillin Aerobic Culture Moderate growth Clindamycin S F O:MRSA Antibiotic Interpretation CHEN Status Penicillin R F Levofloxacin Clindamycin Tetracycline Vancomycin Linezolid S F Erythromycin R F Trimethoprim/Sulfamethox azole R F Levofloxacin R F Tetracycline S F Rifampin S F Organism: Staphylococcus aureus : Ciprofloxacin R F Oxacillin R F Gentamicin S F Vancomycin S F Organism: 2.1 Linezolid Erythromycin Isolated O:STAAUR Ciprofloxacin Oxacillin Gentamicin Isolated Aerobic Culture Rifampin Trimethoprim/Sulfamethox azole Penicillin Aerobic Culture Methicillin Resis St aph Aureus Clindamycin S F O:MRSA Antibiotic Interpretation CHEN Status Penicillin R F Levofloxacin Clindamycin Tetracycline Vancomycin Linezolid S F Erythromycin R F Trimethoprim/Sulfamethox azole R F Levofloxacin R F Tetracycline S F Rifampin S F Organism: Staphylococcus aureus : Ciprofloxacin R F Oxacillin R F Gentamicin S F Vancomycin S F Organism: 2.1 Linezolid Erythromycin Isolated O:STAAUR Ciprofloxacin Oxacillin Gentamicin Isolated Aerobic Culture Rifampin Trimethoprim/Sulfamethox azole Penicillin Aerobic Culture See Below For Report Clindamycin S F O:MRSA Antibiotic Interpretation CHEN Status Penicillin R F Levofloxacin Clindamycin Tetracycline Vancomycin Linezolid S F Erythromycin R F Trimethoprim/Sulfamethox azole R F Levofloxacin R F Tetracycline S F Rifampin S F Organism: Staphylococcus aureus : Ciprofloxacin R F Oxacillin R F Gentamicin S F Vancomycin S F Organism: 2.1 Linezolid Erythromycin Isolated O:STAAUR Ciprofloxacin Oxacillin Gentamicin Isolated Aerobic Culture Rifampin Trimethoprim/Sulfamethox azole Penicillin Aerobic Culture See Below For Report Clindamycin S F O:MRSA Antibiotic Interpretation CHEN Status Penicillin R F Levofloxacin Clindamycin Tetracycline Vancomycin Linezolid S F Erythromycin R F Trimethoprim/Sulfamethox azole R F Levofloxacin R F Tetracycline S F Rifampin S F Organism: Staphylococcus aureus : Ciprofloxacin R F Oxacillin R F Gentamicin S F Vancomycin S F Organism: 2.1 Linezolid Erythromycin Isolated O:STAAUR Ciprofloxacin Oxacillin Gentamicin Isolated Aerobic Culture Rifampin Trimethoprim/Sulfamethox azole Penicillin Aerobic Culture Performed at: [facility] Clindamycin S F O:MRSA Antibiotic Interpretation CHEN Status Penicillin R F Levofloxacin Clindamycin Tetracycline Vancomycin Linezolid S F Erythromycin R F Trimethoprim/Sulfamethox azole R F Levofloxacin R F Tetracycline S F Rifampin S F Organism: Staphylococcus aureus : Ciprofloxacin R F Oxacillin R F Gentamicin S F Vancomycin S F Organism: 2.1 Linezolid Erythromycin Isolated O:STAAUR Ciprofloxacin Oxacillin Gentamicin Isolated Aerobic Culture Rifampin Trimethoprim/Sulfamethox azole Penicillin Aerobic Culture [address] [place] [phone] Clindamycin S F O:MRSA Antibiotic Interpretation CHEN Status Penicillin R F Levofloxacin Clindamycin Tetracycline Vancomycin Linezolid S F Erythromycin R F Trimethoprim/Sulfamethox azole R F Levofloxacin R F Tetracycline S F Rifampin S F Organism: Staphylococcus aureus : Ciprofloxacin R F Oxacillin R F Gentamicin S F Vancomycin S F Organism: 2.1 Linezolid Erythromycin Isolated O:STAAUR Ciprofloxacin Oxacillin Gentamicin Isolated Aerobic Culture Rifampin Trimethoprim/Sulfamethox azole Penicillin Aerobic Culture Bias Machine Operator: Yung Saeed PhD, Phone: [phone] Clindamycin S F O:MRSA Antibiotic Interpretation CHEN Status Penicillin R F Levofloxacin Clindamycin Tetracycline Vancomycin Linezolid S F Erythromycin R F Trimethoprim/Sulfamethox azole R F Levofloxacin R F Tetracycline S F Rifampin S F Organism: Staphylococcus aureus : Ciprofloxacin R F Oxacillin R F Gentamicin S F Vancomycin S F Organism: 2.1 Linezolid Erythromycin Isolated O:STAAUR Ciprofloxacin Oxacillin Gentamicin Isolated Aerobic Culture Rifampin Trimethoprim/Sulfamethox azole Penicillin Aerobic Culture See Below For Report Clindamycin S F O:MRSA Antibiotic Interpretation CHEN Status Penicillin R F Levofloxacin Clindamycin Tetracycline Vancomycin Linezolid S F Erythromycin R F Trimethoprim/Sulfamethox azole R F Levofloxacin R F Tetracycline S F Rifampin S F Organism: Staphylococcus aureus : Ciprofloxacin R F Oxacillin R F Gentamicin S F Vancomycin S F Organism: 2.1 Linezolid Erythromycin Isolated O:STAAUR Ciprofloxacin Oxacillin Gentamicin Isolated Aerobic Culture Rifampin Trimethoprim/Sulfamethox azole Penicillin Aerobic Culture See Below For Report Clindamycin S F O:MRSA Antibiotic Interpretation CHEN Status Penicillin R F Levofloxacin Clindamycin Tetracycline Vancomycin Linezolid S F Erythromycin R F Trimethoprim/Sulfamethox azole R F Levofloxacin R F Tetracycline S F Rifampin S F Organism: Staphylococcus aureus : Ciprofloxacin R F Oxacillin R F Gentamicin S F Vancomycin S F Organism: 2.1 Linezolid Erythromycin Isolated O:STAAUR Ciprofloxacin Oxacillin Gentamicin Isolated Aerobic Culture Rifampin Trimethoprim/Sulfamethox azole Penicillin Aerobic Culture See Below For Report Clindamycin S F O:MRSA Antibiotic Interpretation CHEN Status Penicillin R F Levofloxacin Clindamycin Tetracycline Vancomycin Linezolid S F Erythromycin R F Trimethoprim/Sulfamethox azole R F Levofloxacin R F Tetracycline S F Rifampin S F Organism: Staphylococcus aureus : Ciprofloxacin R F Oxacillin R F Gentamicin S F Vancomycin S F Organism: 2.1 Linezolid Erythromycin Isolated O:STAAUR Ciprofloxacin Oxacillin Gentamicin Isolated Aerobic Culture Rifampin Trimethoprim/Sulfamethox azole Penicillin Aerobic Culture See Below For Report Clindamycin S F O:MRSA Antibiotic Interpretation CHEN Status Penicillin R F Levofloxacin Clindamycin Tetracycline Vancomycin Linezolid S F Erythromycin R F Trimethoprim/Sulfamethox azole R F Levofloxacin R F Tetracycline S F Rifampin S F Organism: Staphylococcus aureus : Ciprofloxacin R F Oxacillin R F Gentamicin S F Vancomycin S F Organism: 2.1 Linezolid Erythromycin Isolated O:STAAUR Ciprofloxacin Oxacillin Gentamicin Isolated Aerobic Culture Rifampin Trimethoprim/Sulfamethox azole Penicillin Aerobic Culture See Below For Report Clindamycin S F O:MRSA Antibiotic Interpretation CHEN Status Penicillin R F Levofloxacin Clindamycin Tetracycline Vancomycin Linezolid S F Erythromycin R F Trimethoprim/Sulfamethox azole R F Levofloxacin R F Tetracycline S F Rifampin S F Organism: Staphylococcus aureus : Ciprofloxacin R F Oxacillin R F Gentamicin S F Vancomycin S F Organism: 2.1 Linezolid Erythromycin Isolated O:STAAUR Ciprofloxacin Oxacillin Gentamicin Isolated Aerobic Culture Rifampin Trimethoprim/Sulfamethox azole Penicillin Aerobic Culture See Below For Report Clindamycin S F O:MRSA Antibiotic Interpretation CHEN Status Penicillin R F Levofloxacin Clindamycin Tetracycline Vancomycin Linezolid S F Erythromycin R F Trimethoprim/Sulfamethox azole R F Levofloxacin R F Tetracycline S F Rifampin S F Organism: Staphylococcus aureus : Ciprofloxacin R F Oxacillin R F Gentamicin S F Vancomycin S F Organism: 2.1 Linezolid Erythromycin Isolated O:STAAUR Ciprofloxacin Oxacillin Gentamicin Isolated Aerobic Culture Rifampin Trimethoprim/Sulfamethox azole Penicillin Aerobic Culture See Below For Report Clindamycin S F O:MRSA Antibiotic Interpretation CHEN Status Penicillin R F Levofloxacin Clindamycin Tetracycline Vancomycin Linezolid S F Erythromycin R F Trimethoprim/Sulfamethox azole R F Levofloxacin R F Tetracycline S F Rifampin S F Organism: Staphylococcus aureus : Ciprofloxacin R F Oxacillin R F Gentamicin S F Vancomycin S F Organism: 2.1 Linezolid Erythromycin Isolated O:STAAUR Ciprofloxacin Oxacillin Gentamicin Isolated Aerobic Culture Rifampin Trimethoprim/Sulfamethox azole Penicillin Aerobic Culture See Below For Report Clindamycin S F O:MRSA Antibiotic Interpretation CHEN Status Penicillin R F Levofloxacin Clindamycin Tetracycline Vancomycin Linezolid S F Erythromycin R F Trimethoprim/Sulfamethox azole R F Levofloxacin R F Tetracycline S F Rifampin S F Organism: Staphylococcus aureus : Ciprofloxacin R F Oxacillin R F Gentamicin S F Vancomycin S F Organism: 2.1 Linezolid Erythromycin Isolated O:STAAUR Ciprofloxacin Oxacillin Gentamicin Isolated Aerobic Culture Rifampin Trimethoprim/Sulfamethox azole Penicillin Aerobic Culture See Below For Report Clindamycin S F O:MRSA Antibiotic Interpretation CHEN Status Penicillin R F Levofloxacin Clindamycin Tetracycline Vancomycin Linezolid S F Erythromycin R F Trimethoprim/Sulfamethox azole R F Levofloxacin R F Tetracycline S F Rifampin S F Organism: Staphylococcus aureus : Ciprofloxacin R F Oxacillin R F Gentamicin S F Vancomycin S F Organism: 2.1 Linezolid Erythromycin Isolated O:STAAUR Ciprofloxacin Oxacillin Gentamicin Isolated Aerobic Culture Rifampin Trimethoprim/Sulfamethox azole Penicillin Aerobic Culture See Below For Report Clindamycin S F O:MRSA Antibiotic Interpretation CHEN Status Penicillin R F Levofloxacin Clindamycin Tetracycline Vancomycin Linezolid S F Erythromycin R F Trimethoprim/Sulfamethox azole R F Levofloxacin R F Tetracycline S F Rifampin S F Organism: Staphylococcus aureus : Ciprofloxacin R F Oxacillin R F Gentamicin S F Vancomycin S F Organism: 2.1 Linezolid Erythromycin Isolated O:STAAUR Ciprofloxacin Oxacillin Gentamicin Isolated Aerobic Culture Rifampin Trimethoprim/Sulfamethox azole Penicillin Aerobic Culture See Below For Report Clindamycin S F O:MRSA Antibiotic Interpretation CHEN Status Penicillin R F Levofloxacin Clindamycin Tetracycline Vancomycin Linezolid S F Erythromycin R F Trimethoprim/Sulfamethox azole R F Levofloxacin R F Tetracycline S F Rifampin S F Organism: Staphylococcus aureus : Ciprofloxacin R F Oxacillin R F Gentamicin S F Vancomycin S F Organism: 2.1 Linezolid Erythromycin Isolated O:STAAUR Ciprofloxacin Oxacillin Gentamicin Isolated Aerobic Culture Rifampin Trimethoprim/Sulfamethox azole Penicillin Aerobic Culture See Below For Report Clindamycin S F O:MRSA Antibiotic Interpretation CHEN Status Penicillin R F Levofloxacin Clindamycin Tetracycline Vancomycin Linezolid S F Erythromycin R F Trimethoprim/Sulfamethox azole R F Levofloxacin R F Tetracycline S F Rifampin S F Organism: Staphylococcus aureus : Ciprofloxacin R F Oxacillin R F Gentamicin S F Vancomycin S F Organism: 2.1 Linezolid Erythromycin Isolated O:STAAUR Ciprofloxacin Oxacillin Gentamicin Isolated Aerobic Culture Rifampin Trimethoprim/Sulfamethox azole Penicillin Aerobic Culture See Below For Report Clindamycin S F O:MRSA Antibiotic Interpretation CHEN Status Penicillin R F Levofloxacin Clindamycin Tetracycline Vancomycin Linezolid S F Erythromycin R F Trimethoprim/Sulfamethox azole R F Levofloxacin R F Tetracycline S F Rifampin S F Organism: Staphylococcus aureus : Ciprofloxacin R F Oxacillin R F Gentamicin S F Vancomycin S F Organism: 2.1 Linezolid Erythromycin Isolated O:STAAUR Ciprofloxacin Oxacillin Gentamicin Isolated Aerobic Culture Rifampin Trimethoprim/Sulfamethox azole Penicillin Performing Lab: see note LC - [facility] SEE REPORT - Aluminum Shingle Roofer Id information not found for OBX-specific moving picture producer legend Anaerobic Culture (Not yet r eviewed by provider) Interpretation: Performing Lab: Notes/Report: LEFT LOWER LEG WOUND [facility] , Anaerobic Culture See Below For Report An aerobic Culture Anaerobic Culture No anaerobic growth in [...] ulcer due to type 2 diabetes mellitus (1939028192177) Type 2 diabetes mellitus with foot ulcer (E11.621) Active confirmed Problem Chronic ulcer of lower extremity (52028760) Non-pressure chronic ulcer of other part of right lower leg limited to breakdown of skin (L97.811) Active confirmed Problem Chronic non-pressure ulcer of calf extending to fat level (0364418194985072 1) Non-pressure chronic ulcer of other part of right lower leg with fat layer exposed (L97.812) Active confirmed Problem Non-pressure chronic ulcer of other part of left lower leg with fat layer exposed (L97.822) Active confirmed Problem Acute exacerbation of chronic obstructive airways disease (573736747) COPD exacerbation (J44.1) Active confirmed Problem 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 with ulcer (I87.313) Active confirmed Problem Ulcer of left lower leg (disorder) (4230087626288899 3) Leg ulcer, left, limited to breakdown of skin (L97.921) Active confirmed Problem Acute osteomyelitis of ankle and/or foot (836401990) Acute osteomyelitis of right ankle or foot [...] stump (T87.89) Active confirmed Problem Diabetes mellitus (48141405) Diabetes mellitus (E11.9) Active confirmed Problem Polyneuropathy due to type 2 diabetes mellitus (989896844) Controlled type 2 diabetes mellitus with diabetic polyneuropathy, unspecified whether halfway insulin use (E11.42) Active confirmed Problem Polyneuropathy due to type 2 diabetes mellitus (264603148) 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) Active confirmed Plan Of Treatment Pending Test Test Name [...] Anaerobic Culture 08/10/2024 Anaerobic Cult, Extended Incub Anaerobic Cult, Extended Incub Tissue Culture 03/25/2024 Tissue Culture 04/08/2024 Insurance Providers Payer Name Payer Address Payer Phone Subscriber Number Group Number Insured Name Patient Relationship to Insured Coverage Start Date Coverage End Date [facility] [address] [address] [place], [place] [id number] Onofre Mckinney Self - patient is the insured
--- OUTSIDE RECORDS SUMMARY | 2025-04-14 10:30 | XMS_ITS | Clinical Summary ---
Author Organization [facility] Address [address] [place] [address] Care Team Providers Care Builder'S Labourer Name Role Phone Dara Eisenberg NP Primary Care Provider Encounters Date Type Department Care Team Description 01/26/2025 Abstract [facility] [address] [place] [address] Sina Mckeon, DPM FACFAS from Last 3 Months Social History Tobacco Use Types Packs/Day Years Used Date Smoking Tobacco: Never Assessed Sex and Gender Information Value Date Recorded Sex Assigned at Not on file Legal Sex Male 7:20 PM EDT Gender Identity Not on file Sexual Orientation Not on file Plan of Treatment Not on file Insurance [employer] MED[employer]ARE Care Teams Builder'S Labourer Relationship Specialty Start Date End Date Dara Eisenberg NP [address] [place] [id number] PCP - General Family Medicine 11/11/24
--- OUTSIDE RECORDS SUMMARY | 2025-04-14 10:30 | XMS_ITS | Clinical Summary ---
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 Patient unable to answer 08/15/2024 [...] - 6.0 % 08/16/2024 12:30 PM EST [facility] ([facility]) Estimated Average Glucose 189 mg/dL 08/16/2024 12:30 PM EST [facility] ([facility]) Blood Venous blood specimen / Unknown Arterial Line / Unknown 08/15/2024 2:04 PM EST 08/15/2024 2:30 PM EST Chantal Woodruff MD LAB BLOOD ORDERABLES Final Re sult [facility] ([facility]) [address] [place] [address] from Last 3 Months or Most Recently Relevant to Health Maintenance Additional Health Concerns Infection Onset Date 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
--- OUTSIDE RECORDS SUMMARY | 2025-04-14 10:30 | XMS_ITS | Clinical Summary ---
Author Organization [facility] Address [address] [place] [address] Care Team Providers Care Cutting Machine Tender Decorative Name Role Phone Unavailable Primary Care Provider [...]
--- OUTSIDE RECORDS SUMMARY | 2025-04-14 10:31 | XMS_ITS | Clinical Summary ---
Author Organization [facility] Address [id number] [address] [id number] Care Team Providers Care Lens Cleaner Name Role Phone Unavailable Primary Care Provider [...]
--- OUTSIDE RECORDS SUMMARY | 2025-04-14 10:34 | XMS_ITS | CCD ---
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 Per [facility] portal multiple referrals were put into [facility] for HHC and [facility] was the only one able to [...] PT /OT recs are for HHC at [place] and CM rounded with attending Dr Ding and plan is PO ATB at discharge. CM will continue to follow closely for discharge needs. IMM copy at bedside. Normal [facility] Comment on above: Result Comment: Elec tronically Signed By: Sarah Snyder I\christian\Date and Time Signed: 01/26/25 11:38 EDT PTon 01-26-2025 INR Coag (PPP) [Relative time] 0.97 {INR} Invalid Interpretation Code [facility] Comment on above: Result Comment: INR results are specifically intended to assess patients stabilized on long-term Anticoagulation therapy suggested INR???s ???Less Intensive Anticoagulation??? 2.0 ??? 3.0 Conventional Range 3.0 ??? 4.5 Performed By: #### 2 [id number] #### [facility] [address] [place] [address] PT 10.9 second(s) Normal 9.4-12.5 [facility] Comment on above: Result Comment: 15 [...] the same coagulation reagent and instrumentation as [facility]. Currently there are no coagulation studies available worldwide for children to 14 days, and no normal ranges. Performed By: #### 2 [id number] #### [facility] [address] [place] [address] eGFRon 01-26-2025 eGFR 97 mL/min/1.73 m2 Normal >=59 [facility] Comment on above: Performed By: #### 1 [id number] #### [facility] [address] [place] [address] CBC w/ Auto Diffon 5 Basophil Absolute 0.1 E9/L Normal 0.0-0.2 [facility] Comment on above: Performed By: #### 2 [id number] #### [facility] [address] [place] [address] Basophils/100 WBC (Bld) 0.9 % Normal 0.0-2.0 [facility] Comment on above: Performed By: #### 2 [id number] #### [facility] [address] [place] [address] Eos Absolute 0.1 E9/L Normal 0.0-0.5 [facility] Comment on above: Performed By: #### 2 [id number] #### [facility] [address] [place] [address] Eosinophils/100 WBC (Bld) 0.9 % Normal 0.0-8.0 [facility] Comment on above: Performed By: #### 2 [id number] #### [facility] [address] [place] [address] Erythrocyte distribution width (RBC) [Ratio] 17.1 % High 10.9-14.2 [facility] Comment on above: Performed By: #### 2 [id number] #### [facility] [address] [place] [address] Hematocrit (Bld) [Volume fraction] 38.3 % Normal 37.7-49.0 [facility] Comment on above: Performed By: #### 2 [id number] #### [facility] [address] [place] [address] Hemoglobin (Bld) [Mass/Vol] 13.2 g/dL Low 13.5-17.5 [facility] Comment on above: Performed By: #### 2 [id number] #### [facility] [address] [place] [address] Lymph Absolute 1.1 E9/L Normal 1.0-4.0 [facility] Comment on above: Performed By: #### 2 154506 #### [facility] [address] [place] [address] Lymphocytes/100 WBC (Bld) 9.3 % Low 14.0-50.0 [facility] Comment on above: Performed By: #### 2 [id number] #### [facility] [address] [place] [address] MCH (RBC) [Entitic mass] 31.6 pg Normal 27.0-34.0 [facility] Comment on above: Performed By: #### 2 [id number] #### [facility] [address] [place] [address] MCHC (RBC) [Mass/Vol] 34.5 g/dL Normal 31.4-36.0 [facility] Comment on above: Performed By: #### 2 [id number] #### [facility] [address] [place] [address] MCV (RBC) [Entitic vol] 91.5 fL Normal 80.0-100.0 [facility] Comment on above: Performed By: #### 2 485383 #### [facility] [address] [place] [address] Ponce Absolute 1.2 E9/L High 0.2-1.0 [facility] Comment on above: Performed By: #### 2 [id number] #### [facility] [address] [place] [address] Monocytes/100 WBC (Bld) 10.0 % Normal 4.0-14.0 [facility] Comment on above: Performed By: #### 2 [id number] #### [facility] [address] [place] [address] Neutro Absolute 9.1 E9/L High 2.0-7.5 [facility] Comment on above: Performed By: #### 2 161006 #### [facility] [address] [place] [address] Neutro Auto 78.9 % High 36.0-75.0 [facility] Comment on above: Performed By: #### 2 192368 #### [facility] [address] [place] [address] Platelet 228.0 E9/L Normal 150.0-500.0 [facility] Comment on above: Performed By: #### 2 [id number] #### [facility] [address] [place] [address] Platelet mean volume (Bld) [Entitic vol] 8.9 fL Normal 6.4-10.8 [facility] Comment on above: Performed By: #### 2 [id number] #### [facility] [address] [place] [address] RBC 4.2 E12/L Low 4.3-5.9 [facility] Comment on above: Performed By: #### 2 [id number] #### [facility] [address] [place] [address] WBC 11.5 E9/L High 4.0-11.0 [facility] Comment on above: Performed By: #### 2 [id number] #### [facility] [address] [place] [address] CKon 01-25-2025 Total CK 64 Int._Unit/L Normal 14-261 [facility] Comment on above: Performed By: #### 2 [id number] #### [facility] [address] [place] [address] CMPon 01-25-2025 Albumin [Mass/Vol] 2.9 g/dL Low 3.3-5.0 [facility] Comment on above: Performed By: #### 2 [id number] #### [facility] [address] [place] [address] Albumin/Globulin [Mass ratio] 1.0 {ratio} Low 1.1-2.2 [facility] Comment on above: Performed By: #### 2 727122 #### [facility] [address] [place] [address] Alk Phos 85 Int._Unit/L Normal 21-98 [facility] Comment on above: Performed By: #### 2 [id number] #### [facility] [address] [place] [address] ALT 16 Int._Unit/L Normal 6-46 [facility] Comment on above: Performed By: #### 2 [id number] #### [facility] [address] [place] [address] Anion gap [Moles/Vol] 11 mmol/L Normal 6-16 [facility] Comment on above: Performed By: #### 2 072222 #### [facility] [address] [place] [address] AST 12 Int._Unit/L Normal 5-43 [facility] Comment on above: Performed By: #### 2 [id number] #### [facility] [address] [place] [address] Bili Total 0.5 mg/dL Normal 0.0-1.1 [facility] Comment on above: Performed By: #### 2 [id number] #### [facility] [address] [place] [address] BUN/Creat Ratio 37 No Units High 10-20 [facility] Comment on above: Performed By: #### 2 [id number] #### [facility] [address] [place] [address] Calcium [Mass/Vol] 8.9 mg/dL Normal 8.9-11.1 [facility] Comment on above: Performed By: #### 2 396054 #### [facility] [address] [place] [address] Chloride [Moles/Vol] 100 mmol/L Low 101-111 [facility] Comment on above: Performed By: #### 2 664445 #### [facility] [address] [place] [address] CO2 [Moles/Vol] 25 mmol/L Normal 21-31 [facility] Comment on above: Performed By: #### 2 523221 #### [facility] [address] [place] [address] Creatinine [Mass/Vol] 1.2 mg/dL Normal 0.5-1.3 [facility] Comment on above: Performed By: #### 2 [id number] #### [facility] [address] [place] [address] Globulin (S) [Mass/Vol] 2.8 g/dL Normal 1.4-4.0 F [facility] Comment on above: Performed By: #### 2 032835 #### [facility] [address] [place] [address] Glucose [Mass/Vol] 345 mg/dL High 55-199 [facility] Comment on above: Performed By: #### 2 391682 #### [facility] [address] [place] [address] Potassium [Moles/Vol] 3.6 mmol/L Normal 3.5-5.3 [facility] Comment on above: Performed By: #### 2 077299 #### [facility] [address] [place] [address] Protein [Mass/Vol] 5.7 g/dL Low 6.0-7.8 [facility] Comment on above: Performed By: #### 2 [id number] #### [facility] [address] [place] [address] Sodium [Moles/Vol] 132 mmol/L Low 135-145 [facility] Comment on above: Performed By: #### 2 273435 #### [facility] [address] [place] [address] Urea nitrogen [Mass/Vol] 44 mg/dL High 5-21 [facility] Comment on above: Performed By: #### 2 [id number] #### [facility] [address] [place] [address] Capillary Glucose POCon 07-0 Glucose [Mass/Vol] 357 mg/dL High 55-99 [facility] Comment on above: Result Comment: Cindy calle RN/ Performed By: #### 2 [id number] #### [facility] [address] [place] [address] Glucose [Mass/Vol] 351 mg/dL High 55-99 [facility] Comment on above: Result Comment: Cindy GAMBOA Performed By: #### 2 [id number] #### [facility] [address] [place] [address] Glucose [Mass/Vol] 277 mg/dL High 55-99 [facility] Comment on above: Result Comment: Cindy calle RN/ Performed By: #### 2 [id number] #### [facility] [address] [place] [address] Glucose [Mass/Vol] 289 mg/dL High 55-99 [facility] Comment on above: Result Comment: Cindy aclle RN/ Performed By: #### 2 [id number] #### [facility] [address] [place] [address] Glucose [Mass/Vol] 282 mg/dL High 55-99 [facility] Comment on above: Result Comment: Cindy calle RN/ Performed By: #### 2 [id number] #### [facility] [address] [place] [address] Glucose [Mass/Vol] 345 mg/dL High 55-99 [facility] Comment on above: Performed By: #### 2 [id number] #### [facility] [address] [place] [address] Glucose [Mass/Vol] 466 mg/dL Abnormal 55-99 [facility] Comment on above: Performed By: #### 2 [id number] #### [facility] [address] [place] [address] [id number] 01-25-2025 HbA1c (Bld) [Mass fraction] 12.6 % High <=5.9 [facility] Comment on above: Performed By: #### 7 [id number] #### [facility] [address] [place] [address] Interdisciplinary Note - Giovany e Manageron 01-25-2025 Interdisciplinary Note - Marble Machine Operator Interdisciplinary Note - Marble Machine Operator SW spoke with patient in room. No family in room. Patient is alert and oriented and participates in discharge planning. Patient is from home lives with friend Sam. Dr. Ding is following, see notes, saw patient earlier today. Patient was admitted on 01/24/25 , dx with sepsis. Has a consult with Digital Strategy Specialist. Patient verified PCP, insurance and DME, FWW [...] hospital. 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 No family in room. Patient is alert and oriented and participates in discharge planning. Patient is from home lives with friend Sam. Dr. Ding is following, see notes, saw patient earlier today. Patient was admitted on 01/24/25 , dx with sepsis. Has a consult with Digital Strategy Specialist. Patient verified PCP, insurance and DME, FWW [...] board updated, and SW contact information provided. [facility] Comment on above: Result Comment: Elec tronically Signed By: Yamileth Cali\.br\Date and Time Signed: 07/08/25 10:44 EDT PTon 01-25-2025 INR Coag (PPP) [Relative time] 1.00 {INR} Invalid Interpretation Code [facility] Comment on above: Result Comment: INR results are specifically intended to assess patients stabilized on long-term Anticoagulation therapy suggested INR???s ???Less Intensive Anticoagulation??? 2.0 ??? 3.0 Conventional Range 3.0 ??? 4.5 Performed By: #### 2 [id number] #### [facility] [address] [place] [address] PT 11.2 second(s) Normal 9.4-12.5 [facility] Comment on above: Result Comment: 15 [...] the same coagulation reagent and instrumentation as [facility]. Currently there are no coagulation studies available worldwide for children to 14 days, and no normal ranges. Performed By: #### 2 [id number] #### [facility] [address] [place] [address] eGFRon 01-25-2025 eGFR 67 mL/min/1.73 m2 Normal >=59 [facility] Comment on above: Performed By: #### 1 [id number] #### [facility] [address] [facility] [place] [address] BMPon 01-24-2025 Anion gap [Moles/Vol] 12 mmol/L Normal 6-16 [facility] Comment on above: Performed By: #### 2 [id number] #### [facility] [address] [place] [address] BUN/Creat Ratio 41 No Units High 10-20 [facility] Comment on above: Performed By: #### 2 356115 #### [facility] [address] [place] [address] Calcium [Mass/Vol] 8.7 mg/dL Low 8.9-11.1 [facility] Comment on above: Performed By: #### 2 056554 #### [facility] [address] [place] [address] Chloride [Moles/Vol] 95 mmol/L Low 101-111 [facility] Comment on above: Performed By: #### 2 [id number] #### [facility] [address] [place] [address] CO2 [Moles/Vol] 25 mmol/L Normal 21-31 [facility] Comment on above: Performed By: #### 2 [id number] #### [facility] [address] [place] [address] Creatinine [Mass/Vol] 1.4 mg/dL High 0.5-1.3 [facility] Comment on above: Performed By: #### 2 [id number] #### [facility] [address] [place] [address] Glucose [Mass/Vol] 431 mg/dL High 55-199 [facility] Comment on above: Performed By: #### 2 [id number] #### [facility] [address] [place] [address] Potassium [Moles/Vol] 3.8 mmol/L Normal 3.5-5.3 [facility] Comment on above: Performed By: #### 2 [id number] #### [facility] [address] [place] [address] Sodium [Moles/Vol] 128 mmol/L Low 135-145 [facility] Comment on above: Performed By: #### 2 [id number] #### [facility] [address] [place] [address] Urea nitrogen [Mass/Vol] 57 mg/dL High 5-21 [facility] Comment on above: Performed By: #### 2 [id number] #### [facility] [address] [place] [address] CBC w/ Auto Diffon 5 Basophil Absolute 0.1 E9/L Normal 0.0-0.2 [facility] Comment on above: Performed By: #### 2 [id number] #### [facility] [address] [place] [address] Basophils/100 WBC (Bld) 0.5 % Normal 0.0-2.0 [facility] Comment on above: Performed By: #### 2 [id number] #### [facility] [address] [place] [address] Eos Absolute 0.1 E9/L Normal 0.0-0.5 [facility] Comment on above: Performed By: #### 2 [id number] #### [facility] [address] [place] [address] Eosinophils/100 WBC (Bld) 0.5 % Normal 0.0-8.0 [facility] Comment on above: Performed By: #### 2 [id number] #### [facility] [address] [place] [address] Erythrocyte distribution width (RBC) [Ratio] 17.1 % High 10.9-14.2 [facility] Comment on above: Performed By: #### 2 [id number] #### [facility] [address] [place] [address] Hematocrit (Bld) [Volume fraction] 43.6 % Normal 37.7-49.0 [facility] Comment on above: Performed By: #### 2 [id number] #### [facility] [address] [place] [address] Hemoglobin (Bld) [Mass/Vol] 14.6 g/dL Normal 13.5-17.5 [facility] Comment on above: Performed By: #### 2 [id number] #### [facility] [address] [place] [address] Lymph Absolute 1.1 E9/L Normal 1.0-4.0 [facility] Comment on above: Performed By: #### 2 [id number] #### [facility] [address] [place] [address] Lymphocytes/100 WBC (Bld) 6.1 % Low 14.0-50.0 [facility] Comment on above: Performed By: #### 2 [id number] #### [facility] [address] [place] [address] MCH (RBC) [Entitic mass] 30.8 pg Normal 27.0-34.0 [facility] Comment on above: Performed By: #### 2 [id number] #### [facility] [address] [place] [address] MCHC (RBC) [Mass/Vol] 33.6 g/dL Normal 31.4-36.0 [facility] Comment on above: Performed By: #### 2 [id number] #### [facility] [address] [place] [address] MCV (RBC) [Entitic vol] 91.8 fL Normal 80.0-100.0 [facility] Comment on above: Performed By: #### 2 [id number] #### [facility] [address] [place] [address] Ponce Absolute 1.3 E9/L High 0.2-1.0 [facility] Comment on above: Performed By: #### 2 [id number] #### [facility] [address] [place] [address] Monocytes/100 WBC (Bld) 7.6 % Normal 4.0-14.0 F [facility] Comment on above: Performed By: #### 2 [id number] #### [facility] [address] [place] [address] Neutro Absolute 14.8 E9/L High 2.0-7.5 [facility] Comment on above: Performed By: #### 2 [id number] #### [facility] [address] [place] [address] Neutro Auto 85.3 % High 36.0-75.0 [facility] Comment on above: Performed By: #### 2 [id number] #### [facility] [address] [place] [address] Platelet 269.0 E9/L Normal 150.0-500.0 [facility] Comment on above: Performed By: #### 2 [id number] #### [facility] [address] [place] [address] Platelet mean volume (Bld) [Entitic vol] 8.7 fL Normal 6.4-10.8 [facility] Comment on above: Performed By: #### 2 [id number] #### [facility] [address] [place] [address] RBC 4.8 E12/L Normal 4.3-5.9 [facility] Comment on above: Performed By: #### 2 [id number] #### [facility] [address] [place] [address] WBC 17.4 E9/L High 4.0-11.0 [facility] Comment on above: Performed By: #### 2 [id number] #### [facility] [address] [place] [address] Capillary Glucose POCon Glucose [Mass/Vol] 490 mg/dL Abnormal 55-99 [facility] Comment on above: Result Comment: Cindy calle RN/ Performed By: #### 2 [id number] #### [facility] [address] [place] [address] ED Clinical Summaryon 2024 ED Clinical Summary ED Clinical Summary [address] [address] ED Clinical Summary Person Information Name: TYLER SMITH/[facility] Age: 64 Years : 1960 Sex: Male Language: Nepali PCP: DARA EISENBERG CNP Marital Status: Single Phone: [phone] Visit Id: Visit Reason: Medical problem - major; VERICOSE VEIN TOURNIQUET Speciality: Acuity: 2 Enc Type: Inpatient Med Service: Medical Arrival: 01/24/2025 11:29:33 Discharge: LOS: 000 07:25 Checkin: 01/24/2025 11:29:33 Checkout: 01/24/2025 18:54:25 Dispo Type: Admitted as IP to this [facility] EVENTS: Event Name Event Status Request [...] 18:23:37 Patient Care Request 01/24/2025 18:23:37 ADDRESS: [address] [place] [address] PHYS DOC NOTES: MEDICAL INFORMATION: Prescriptions Given: New Medications [id number], [address], [place] [id number], [phone] doxycycline (doxycycline hyclate 100 mg Cap) 1 Capsules By Mouth 2 times a day for 7 Days. Refills: 0. PATIENT EDUCATION INFORMATION: Instructions: Cellulitis, Adult, Oukf-wd-Uanv; Bleeding Varicose Veins Follow up: With: Address: When: DARA EISENBERG [address], [place] [id number] [phone] Business (1) In 3 days 01/27/2025 Comments: Call Dr for diagnosis based follow up DIAGNOSIS: 1:Severe sepsis; 2:Cellulitis of leg; 3:KRISTINE (acute kidney injury); 4:Atrial fibrillation with RVR; 5: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; 6:Hyponatremia; 7:Noncompliance with medications Normal [facility] ED Note-Physicianon 01-25-20 ED Note-Physician ED Note-Physician Basic Information Time Seen: Erich ROBBINS Puneet Ellis. 01/24/2025 11:35 Chief Complaint Pt [...] of the patient. Sepsis Data [x] Patient's Murphy body weight was considered in sepsis fluid [...] other nonco (more content not included)... Normal [facility] Comment on above: Result Comment: Elec tronically Signed By: Puneet Jung PA-C\.br\Date and Time Signed: 01/24/25 13:02 EDT\.br\Electronically Co-Signed By: Puneet Jung PA-C\.br\Date and Time Co-Signed: 01/24/25 15:25 EDT\.br\Electronically Co-Signed By: Puneet Jung PA-C\.br\Date and Time Co-Signed: 01/24/25 16:27 EDT\.br\Electronically Co-Signed By: Manuel Fletcher M.D.\.br\Date and Time Co-Signed: 01/24/25 18:08 EDT ED Patient Summaryon 025 ED Patient Summary ED Patient Summary [place] [id number] Patient Discharge Instructions Person Information Name: TYLER SMITH Age: 64 Years Arrival Date: 01/24/2025 11:29:33 Discharge Diagnosis: 1:Severe sepsis; 2:Cellulitis of leg; 3:KRISTINE (acute kidney injury); 4:Atrial fibrillation with RVR; 5: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; 6:Hyponatremia; 7:Noncompliance with medications Primary Care Physician: DARA EISENBERG CNP Provider Information Primary Provider: Justine Otto, Manuel Mathis Advanced Coffee Break Attendant:Puneet Jung PA-C The exam and treatment you received in the Emergency Department were for an urgent problem and are not intended as complete care. It is important that you follow up with a doctor, nurse practitioner, or physician???s study assistant for ongoing care. If your symptoms [...] Instructions: With: Address: When: DARA EISENBERG [address], [place] [phone] Business (1) In 3 days 01/27/2025 Comments: Call Dr for diagnosis based follow up In the event that this physician does not participate in your insurance network, please consult with your insurance company to find a nearby participating provider. Patient Education Materials: Cellulitis, Adult, Ywuw-ky-Yhuz; Bleeding Varicose Veins A MESSAGE TO ALL PATIENTS REGARDING OPIOIDS PRESCRIPTION OPIOIDS: WHAT YOU NEED TO KNOW Prescription opioids can be used to help relieve kzqnicss-da-nyqvnt pain and are often prescribed following a [...] (more content not included)... Normal [facility] Lactic Acidon 01-24-2025 Lactic Acid Lvl 1.0 mmol/L Normal 0.5-2.2 [facility] Comment on above: Performed By: #### 2 [id number] #### [facility] [address] [place] [address] PT & PTTon 01-24-2025 INR Coag (PPP) [Relative time] 1.03 {INR} Invalid Interpretation Code [facility] Comment on above: Result Comment: INR results are specifically intended to assess patients stabilized on long-term Anticoagulation therapy suggested INR???s ???Less Intensive Anticoagulation??? 2.0 ??? 3.0 Conventional Range 3.0 ??? 4.5 Performed By: #### 1 [id number] #### [facility] [address] [place] [address] PT 11.5 second(s) Normal 9.4-12.5 [facility] Comment on above: Result Comment: 15 [...] the same coagulation reagent and instrumentation as [facility]. Currently there are no coagulation studies available worldwide for children to 14 days, and no normal ranges. Performed By: #### 1 [id number] #### [facility] [address] [place] [address] PTT 27.7 second(s) Normal 25.1-36.5 [facility] Comment on above: Result Comment: Para [...] the same coagulation reagent and instrumentation as [facility]. Currently there are no coagulation studies available worldwide for children to 14 days, and no normal ranges. Heparin therapeutic range (represented by Anti-Factor Xa activity of 0.2 - 0.4 U/mL) corresponds to PTT of 56.6 - 109.0 sec. Performed By: #### 1 [id number] #### [facility] [address] [place] [address] Pre-Arrival Noteon Pre-Arrival Note Pre-Arrival Note Pre-Arrival Summary Name: , Current Date: 01/24/2025 11:30:22 EDT Gender: Date of : Age: Pre-Arrival Type: EMS ETA: 01/24/2025 11:50:00 EDT Primary Care Physician: Presenting Problem: varicose vein tourniquet Pre-Arrival User: [address] Referring Source: Location: [place] Completion Date/Time: 01/24/2025 11:20:00 [facility] Emergency Department Pre-Hospital Report Form Vital Signs: Pre-Hospital Report: Treatment in Route: Response to Treatment: Misc. Issues: Normal [facility] Procalcitoninon 01-24-2025 Procalcitonin .09 ng/mL Normal .00-.50 [facility] Comment on above: Result Comment: <0.5 [...] to 24 hours. Performed By: #### 2 [id number] #### [facility] [address] [place] [address] Troponin 0 Hr.on 01-24-2025 Troponin HS 4.60 pg/mL Low 15.90-38.40 [facility] Comment on above: Result Comment: The 95% CI (Confidence Interval) PPV (Positive Predictive Value) for myocardial infarction in females is 38 pg/mL, in males 51 pg/mL. The results should be used in conjunction with clinical conditions of myocardial infarction. (Access High Sensitivity Troponin I Instructions For Use, Charli OnBeep, February 2018) Performed By: #### 1 [id number] #### [facility] [address] [place] [address] UA with Cult Rflxon 01-25-20 25 Color (U) Light-Yellow Normal Yellow [facility] Comment on above: Result Comment: Micr oscopic readings are only performed on those samples that meet specific criteria set forth by [facility]. Performed By: #### 4 [id number] #### [facility] [address] [place] [address] Ketones Ql (U) Negative Normal Negative [facility] Comment on above: Performed By: #### 4 [id number] #### [facility] [address] [place] [address] UA Blood 1+ mg/dL Abnormal Negative [facility] Comment on above: Performed By: #### 4 [id number] #### [facility] [address] [place] [address] UA Clarity Clear Normal Clear [facility] Comment on above: Performed By: #### 4 [id number] #### [facility] [address] [place] [address] UA Glucose 4+ mg/dL Abnormal Negative [facility] Comment on above: Performed By: #### 4 [id number] #### [facility] [address] [place] [address] UA Leuk Est Negative Normal Negative [facility] Comment on above: Performed By: #### 4 [id number] #### [facility] [address] [place] [address] UA Mucous Trace Normal Negative [facility] Comment on above: Performed By: #### 4 [id number] #### [facility] [address] [place] [address] UA Nitrite Negative Normal Negative [facility] Comment on above: Performed By: #### 4 [id number] #### [facility] [address] [place] [address] UA pH 5.0 Invalid Interpretation Code 5.0-9.0 [facility] Comment on above: Performed By: #### 4 [id number] #### [facility] [address] [place] [address] UA Protein Negative Normal Negative [facility] Comment on above: Performed By: #### 4 [id number] #### [facility] [address] [place] [address] UA RBC 4-20 Abnormal 0-3 [facility] Comment on above: Performed By: #### 4 [id number] #### [facility] [address] [place] [address] UA Spec Grav 1.020 Invalid Interpretation Code 1.005-1.030 [facility] Comment on above: Performed By: #### 4 [id number] #### [facility] [address] [place] [address] UA Urobilinogen Negative Normal Negative [facility] Comment on above: Performed By: #### 4 [id number] #### [facility] [address] [place] [address] UA WBC 0-5 Normal 0-5 [facility] Comment on above: Performed By: #### 4 [id number] #### [facility] [address] [place] [address] Urobilinogen (U) [Mass/Vol] Negative Normal Negative [facility] Comment on above: Performed By: #### 4 [id number] #### [facility] [address] [place] [address] UA Spec Desc Clean Catch Normal [facility] Comment on above: Performed By: #### 4 [id number] #### [facility] [address] [place] [address] XR Chest 2 Viewson XR Chest 2 [...] Krishna Ray MD Transcribed by: UMU Technologist: QUICK SKETCH ARTIST Normal [facility] eGFRon 01-24-2025 eGFR 55 mL/min/1.73 m2 Low >=59 [facility] Comment on above: Performed By: #### 1 [id number] #### [facility] [address] [place] [address] HbA1c HPLC (Bld) [Mass fract ion]on 11-05-2024 HbA1c (Bld) [Mass fraction] 10.1 % [facility] CBC WITH AUTO DIFFERENTIALon 09-09-2024 Basophils (Bld) [#/Vol] 0.05 10*3/uL Normal 0.00-0.20 [facility] Comment on above: Performed By: #### L [id number] ####[facility] (BEAKER)[address] [place] [address] Basophils/100 WBC (Bld) 0.6 % Normal 0.0-1.0 [facility] Comment on above: Performed By: #### L [id number] ####[facility] (BEAKER)[address] [place] [address] Eosinophils (Bld) [#/Vol] 0.43 10*3/uL Normal 0.00-0.50 [facility] Comment on above: Performed By: #### L [id number] ####[facility] ([facility] [place] [address] Eosinophils/100 WBC (Bld) 5.0 % Normal 0.0-6.0 [facility] Comment on above: Performed By: #### L [id number] ####[facility] ([facility] [place] [address] Erythrocyte distribution width (RBC) [Ratio] 15.1 % High 11.5-15.0 [facility] Comment on above: Performed By: #### L [id number] ####[facility] ([facility] [place] [address] ERYTHROCYTE MEAN CORPUSCULAR HEMOGLOBIN CONCENTRATION (G/DL) BY AUTOMATED 31.1 g/dL Low 32.0-35.0 [facility] Comment on above: Performed By: #### L [id number] ####[facility] ([facility] [place] [address] Hematocrit (Bld) [Volume fraction] 48.8 % Normal 39.0-55.0 [facility] Comment on above: Performed By: #### L [id number] ####[facility] [place] [address] Hemoglobin (Bld) [Mass/Vol] 15.2 g/dL Normal 13.0-17.0 [facility] Comment on above: Performed By: #### L [id number] ####[facility] ([facility]AKER)[address] [place] [address] Immature granulocytes (Bld) [#/Vol] 0.05 10*3/uL Normal 0.00-0.20 [facility] Comment on above: Performed By: #### L [id number] ####[facility] (BEAKER)[address] [place] [address] Immature granulocytes/100 WBC (Bld) 0.6 % Normal 0.0-1.0 [facility] Comment on above: Performed By: #### L [id number] ####[facility] ([facility]AKER)[address] [place] [address] Lymphocytes (Bld) [#/Vol] 1.59 10*3/uL Normal 1.20-4.00 [facility] Comment on above: Performed By: #### L [id number] ####[facility] ([facility]AKER)[address] [place] [address] Lymphocytes/100 WBC (Bld) 18.5 % Low 20.0-45.0 [facility] Comment on above: Performed By: #### L [id number] ####[facility] [place] [address] MCH (RBC) [Entitic mass] 28.8 pg Normal 27.0-33.0 [facility] Comment on above: Performed By: #### L [id number] ####[facility] [place] [address] MCV (RBC) [Entitic vol] 92.6 fL Normal 82.0-98.0 [facility] Comment on above: Performed By: #### L [id number] ####[facility] ([facility]AKER)[address] [place] [address] Monocytes (Bld) [#/Vol] 0.90 10*3/uL Normal 0.10-1.00 [facility] Comment on above: Performed By: #### L [id number] ####[facility] (BEAKER)[address] [place] [address] Monocytes/100 WBC (Bld) 10.5 % Normal 5.0-12.0 [facility] Comment on above: Performed By: #### L [id number] ####[facility] (BEAKER)[address] [place] [address] Neutrophils (Bld) [#/Vol] 5.56 10*3/uL Normal 1.60-7.60 [facility] Comment on above: Performed By: #### L [id number] ####[facility] [address] Neutrophils/100 WBC (Bld) 64.8 % Normal 40.0-72.0 [facility] Comment on above: Performed By: #### L [id number] ####[facility] ([facility] [address] NRBC (PER 100 WBCS) BY AUTOMATED COUNT 0.0 % Normal 0 [facility] Comment on above: Performed By: #### L [id number] ####[facility] ([facility] [address] PLATELETS (10*3/UL) IN BLOOD AUTOMATED COUNT 208 10*3/uL Normal 150-400 [facility] Comment on above: Performed By: #### L [id number] ####[facility] ([facility] [address] RBC (Bld) [#/Vol] 5.27 10*6/uL Normal 4.20-5.70 [facility] Comment on above: Performed By: #### L [id number] ####[facility] ([facility] [address] WBC (Bld) [#/Vol] 8.58 10*3/uL Normal 4.00-10.60 [facility] Comment on above: Performed By: #### L [id number] ####[facility] [address] DSon 09-09-2024 DS Normal [facility] MAGNESIUMon 09-09-2024 Magnesium [Mass/Vol] 1.7 mg/dL Low 1.9-2.7 [facility] Comment on above: Performed By: #### L [id number] ####[facility] ([facility] [place] [address] PHOSPHORUSon 09-09-2024 Magnesium [Mass/Vol] 3.2 mg/dL Normal 2.5-5.0 [facility] Comment on above: Performed By: #### L [id number] ####[facility] ([facility] [place] [address] POCT GLUCOSE METER UNSOLICIT ED RESULTSon 09-09-2024 Glucose [Mass/Vol] 114 mg/dL High 70-105 [facility] Comment on above: Order Comment: Waive d Testing in the ED is performed under the ED CLIA certificate #[id number]. Result Comment: ndub ois3 Performed By: #### L [id number] ####[facility] ([facility] [place] [address] 30on 09-08-2024 30 Normal [facility] 30 Normal [facility] CBC WITH AUTO DIFFERENTIALon 09-08-2024 Basophils (Bld) [#/Vol] 0.06 10*3/uL Normal 0.00-0.20 [facility] Comment on above: Performed By: #### L [id number] ####[facility] ([facility] [place] [address] Basophils/100 WBC (Bld) 0.8 % Normal 0.0-1.0 [facility] Comment on above: Performed By: #### L [id number] ####[facility] ([facility] [place] [address] Eosinophils (Bld) [#/Vol] 0.43 10*3/uL Normal 0.00-0.50 [facility] Comment on above: Performed By: #### L [id number] ####[facility] ([facility] [place] [address] Eosinophils/100 WBC (Bld) 5.5 % Normal 0.0-6.0 [facility] Comment on above: Performed By: #### L [id number] ####[facility] ([facility])[address] [place] [address] Erythrocyte distribution width (RBC) [Ratio] 15.2 % High 11.5-15.0 [facility] Comment on above: Performed By: #### L [id number] ####[facility] [place] [address] ERYTHROCYTE MEAN CORPUSCULAR HEMOGLOBIN CONCENTRATION (G/DL) BY AUTOMATED 30.8 g/dL Low 32.0-35.0 [facility] Comment on above: Performed By: #### L [id number] ####[facility] ([facility] [place] [address] Hematocrit (Bld) [Volume fraction] 45.4 % Normal 39.0-55.0 [facility] Comment on above: Performed By: #### L [id number] ####[facility] ([facility] [place] [address] Hemoglobin (Bld) [Mass/Vol] 14.0 g/dL Normal 13.0-17.0 [facility] Comment on above: Performed By: #### L [id number] ####[facility] ([facility] [place] [address] Immature granulocytes (Bld) [#/Vol] 0.03 10*3/uL Normal 0.00-0.20 [facility] Comment on above: Performed By: #### L [id number] ####[facility] ([facility] [place] [address] Immature granulocytes/100 WBC (Bld) 0.4 % Normal 0.0-1.0 [facility] Comment on above: Performed By: #### L [id number] ####[facility] [place] [address] Lymphocytes (Bld) [#/Vol] 1.82 10*3/uL Normal 1.20-4.00 [facility] Comment on above: Performed By: #### L [id number] ####[facility] [place] [address] Lymphocytes/100 WBC (Bld) 23.2 % Normal 20.0-45.0 [facility] Comment on above: Performed By: #### L [id number] ####[facility] ([facility] [place] [address] MCH (RBC) [Entitic mass] 29.1 pg Normal 27.0-33.0 [facility] Comment on above: Performed By: #### L [id number] ####[facility] ([facility] [place] [address] MCV (RBC) [Entitic vol] 94.4 fL Normal 82.0-98.0 [facility] Comment on above: Performed By: #### L [id number] ####[facility] ([facility] [place] [address] Monocytes (Bld) [#/Vol] 0.88 10*3/uL Normal 0.10-1.00 [facility] Comment on above: Performed By: #### L [id number] ####[facility] ([facility] [place] [address] Monocytes/100 WBC (Bld) 11.2 % Normal 5.0-12.0 [facility] Comment on above: Performed By: #### L [id number] ####[facility] ([facility] [place] [address] Neutrophils (Bld) [#/Vol] 4.62 10*3/uL Normal 1.60-7.60 [facility] Comment on above: Performed By: #### L [id number] ####[facility] ([facility] [place] [address] Neutrophils/100 WBC (Bld) 58.9 % Normal 40.0-72.0 [facility] Comment on above: Performed By: #### L [id number] ####[facility] ([facility] [place] [address] NRBC (PER 100 WBCS) BY AUTOMATED COUNT 0.0 % Normal 0 [facility] Comment on above: Performed By: #### L [id number] ####[facility] ([facility] [place] [address] PLATELETS (10*3/UL) IN BLOOD AUTOMATED COUNT 231 10*3/uL Normal 150-400 [facility] Comment on above: Performed By: #### L [id number] ####[facility] ([facility] [place] [address] RBC (Bld) [#/Vol] 4.81 10*6/uL Normal 4.20-5.70 [facility] Comment on above: Performed By: #### L [id number] ####[facility] ([facility] [place] [address] WBC (Bld) [#/Vol] 7.84 10*3/uL Normal 4.00-10.60 [facility] Comment on above: Performed By: #### L [id number] ####[facility] ([facility] [place] [address] MAGNESIUMon 09-08-2024 Magnesium [Mass/Vol] 1.6 mg/dL Low 1.9-2.7 [facility] Comment on above: Performed By: #### L [id number] ####[facility] ([facility] [place] [address] NURSNOTEon 09-08-2024 NURSNOTE Normal [facility] PHOSPHORUSon 09-08-2024 Magnesium [Mass/Vol] 3.4 mg/dL Normal 2.5-5.0 [facility] Comment on above: Performed By: #### L [id number] ####[facility] ([facility] [place] [address] POCT GLUCOSE METER UNSOLICIT ED RESULTSon 09-08-2024 Glucose [Mass/Vol] 244 mg/dL High 70-105 [facility] Comment on above: Order Comment: Waive d Testing in the ED is performed under the ED CLIA certificate #[id number]. Result Comment: droc kol Performed By: #### L [id number] ####[facility] ([facility] [place] [address] Glucose [Mass/Vol] 165 mg/dL High 70-105 [facility] Comment on above: Order Comment: Waive d Testing in the ED is performed under the ED CLIA certificate #[id number]. Result Comment: ndub ois3 Performed By: #### L [id number] ####[facility] ([facility] [place] [address] Glucose [Mass/Vol] 110 mg/dL High 70-105 [facility] Comment on above: Order Comment: Waive d Testing in the ED is performed under the ED CLIA certificate #[id number]. Result Comment: ndub ois3 Performed By: #### L [id number] ####[facility] ([facility] [place] [address] Glucose [Mass/Vol] 157 mg/dL High 70-105 [facility] Comment on above: Order Comment: Waive d Testing in the ED is performed under the ED CLIA certificate #[id number]. Result Comment: ndub ois3 Performed By: #### L [id number] ####[facility] ([facility] [place] [address] 30on 09-07-2024 30 Normal [facility] 30 Normal [facility] BASIC METABOLIC PANELon 08-21 Anion gap [Moles/Vol] 9 mmol/L Normal 7-20 [facility] Comment on above: Performed By: #### L [id number] ####[facility] ([facility] [place] [address] Calcium [Mass/Vol] 9.6 mg/dL Normal 8.6-10.3 [facility] Comment on above: Performed By: #### L [id number] ####[facility] ([facility] [place] [address] Chloride [Moles/Vol] 100 mmol/L Normal 98-107 [facility] Comment on above: Performed By: #### L [id number] ####[facility] ([facility] [place] [address] CO2 [Moles/Vol] 32 mmol/L High 21-31 [facility] Comment on above: Performed By: #### L [id number] ####[facility] ([facility] [place] [address] Creatinine [Mass/Vol] 0.78 mg/dL Normal 0.70-1.30 [facility] Comment on above: Performed By: #### L [id number] ####[facility] ([facility] [place] [address] GLOMERULAR FILTRATION RATE ML/MIN/1.73 SQ M.PREDICTED 99.0 mL/min/1.73m*2 Normal >60.0 [facility] Comment on above: Result Comment: [facility]???s estimated glomerular filtration rate (eGFR) [...] of individuals. Performed By: #### L [id number] ####[facility] ([facility] [place] [address] Glucose [Mass/Vol] 153 mg/dL High 70-100 [facility] Comment on above: Performed By: #### L [id number] ####[facility] ([facility] [place] [address] Potassium [Moles/Vol] 4.1 mmol/L Normal 3.5-5.1 [facility] Comment on above: Performed By: #### L [id number] ####[facility] ([facility])[address] [place] [address] Sodium [Moles/Vol] 137 mmol/L Normal 136-145 [facility] Comment on above: Performed By: #### L [id number] ####[facility] ([facility])[address] [place] [address] Urea nitrogen [Mass/Vol] 19 mg/dL Normal 7-25 [facility] Comment on above: Performed By: #### L [id number] ####[facility] [place] [address] UREA NITROGEN/CREATININE (MASS RATIO) IN SER/PLAS 24.4 Normal [facility] Comment on above: Performed By: #### L [id number] ####[facility] ([facility] [place] [address] CBC WITH AUTO DIFFERENTIALon 09-07-2024 Basophils (Bld) [#/Vol] 0.06 10*3/uL Normal 0.00-0.20 [facility] Comment on above: Performed By: #### L [id number] ####[facility] ([facility])[address] [place] [address] Basophils/100 WBC (Bld) 0.8 % Normal 0.0-1.0 [facility] Comment on above: Performed By: #### L [id number] ####[facility] ([facility])[address] [place] [address] Eosinophils (Bld) [#/Vol] 0.49 10*3/uL Normal 0.00-0.50 [facility] Comment on above: Performed By: #### L [id number] ####[facility] ([facility])[address] [place] [address] Eosinophils/100 WBC (Bld) 6.8 % High 0.0-6.0 [facility] Comment on above: Performed By: #### L [id number] ####[facility] ([facility])[address] [place] [address] Erythrocyte distribution width (RBC) [Ratio] 15.3 % High 11.5-15.0 [facility] Comment on above: Performed By: #### L [id number] ####[facility] ([facility])[address] [place] [address] ERYTHROCYTE MEAN CORPUSCULAR HEMOGLOBIN CONCENTRATION (G/DL) BY AUTOMATED 30.9 g/dL Low 32.0-35.0 [facility] Comment on above: Performed By: #### L [id number] ####[facility] ([facility])[address] [place] [address] Hematocrit (Bld) [Volume fraction] 45.9 % Normal 39.0-55.0 [facility] Comment on above: Performed By: #### L [id number] ####[facility] ([facility])[address] [place] [address] Hemoglobin (Bld) [Mass/Vol] 14.2 g/dL Normal 13.0-17.0 [facility] Comment on above: Performed By: #### L [id number] ####[facility] ([facility])[address] [place] [address] Immature granulocytes (Bld) [#/Vol] 0.04 10*3/uL Normal 0.00-0.20 [facility] Comment on above: Performed By: #### L [id number] ####[facility] ([facility])[address] [place] [address] Immature granulocytes/100 WBC (Bld) 0.6 % Normal 0.0-1.0 [facility] Comment on above: Performed By: #### L [id number] ####[facility] ([facility])[address] [place] [address] Lymphocytes (Bld) [#/Vol] 1.82 10*3/uL Normal 1.20-4.00 [facility] Comment on above: Performed By: #### L [id number] ####[facility] ([facility])[address] [place] [address] Lymphocytes/100 WBC (Bld) 25.3 % Normal 20.0-45.0 [facility] Comment on above: Performed By: #### L [id number] ####[facility] [place] [address] MCH (RBC) [Entitic mass] 29.2 pg Normal 27.0-33.0 [facility] Comment on above: Performed By: #### L [id number] ####[facility] ([facility] [place] [address] MCV (RBC) [Entitic vol] 94.4 fL Normal 82.0-98.0 [facility] Comment on above: Performed By: #### L [id number] ####[facility] ([facility] [place] [address] Monocytes (Bld) [#/Vol] 0.74 10*3/uL Normal 0.10-1.00 [facility] Comment on above: Performed By: #### L [id number] ####[facility] ([facility] [place] [address] Monocytes/100 WBC (Bld) 10.3 % Normal 5.0-12.0 [facility] Comment on above: Performed By: #### L [id number] ####[facility] ([facility])[address] [place] [address] Neutrophils (Bld) [#/Vol] 4.04 10*3/uL Normal 1.60-7.60 [facility] Comment on above: Performed By: #### L [id number] ####[facility] ([facility])[address] [place] [address] Neutrophils/100 WBC (Bld) 56.2 % Normal 40.0-72.0 [facility] Comment on above: Performed By: #### L [id number] ####[facility] ([facility])[address] [place] [address] NRBC (PER 100 WBCS) BY AUTOMATED COUNT 0.0 % Normal 0 [facility] Comment on above: Performed By: #### L [id number] ####[facility] ([facility] [place] [address] PLATELETS (10*3/UL) IN BLOOD AUTOMATED COUNT 234 10*3/uL Normal 150-400 [facility] Comment on above: Performed By: #### L [id number] ####[facility] ([facility] [place] [place] [address] RBC (Bld) [#/Vol] 4.86 10*6/uL Normal 4.20-5.70 [facility] Comment on above: Performed By: #### L [id number] ####[facility] ([facility] [place] [place] [address] WBC (Bld) [#/Vol] 7.19 10*3/uL Normal 4.00-10.60 [facility] Comment on above: Performed By: #### L [id number] ####[facility] ([facility] [place] [address] MAGNESIUMon 09-07-2024 Magnesium [Mass/Vol] 1.7 mg/dL Low 1.9-2.7 [facility] Comment on above: Performed By: #### L [id number] ####[facility] ([facility] [place] [address] NURSNOTEon 09-07-2024 NURSNOTE Signed off to Ian engel RN [facility] NURSNOTE HOB up @ 40 degrees, NO c/o of pain, or SOB at this time Urinal at bedside Call light within reach IV INT'd, intact, no redness noted Pulse ox--97% O 2 cont. On pt. Per nasal cannula @ 4 L/min NC Telemetry cont. On pt [facility] NURSNOTE [facility] NURSNOTE Tried to call Elias, pt's brother, no answer, still, at this time, [address]rd [address] [facility] NURSNOTE [facility] NURSNOTE Pt's family brought him a hamburger last night, and the pt. Is eating it now. Pt. Encouraged not to eat, since the hamburger has been sitting out all night. Pt. Cont. To eat burger. [facility] NURSNOTE Eyes closed resp. Easy @ 18/min Pulse ox--98% Telemetry cont. On pt [facility] Orders Onlyon 09-07-2024 Orders Only [id number] LuisTyler 1960 M Date Provider Department Center 09/07/[id number], JENN*[facility] [place] Medical C No family history on file [facility] PHOSPHORUSon 09-07-2024 Magnesium [Mass/Vol] 3.5 mg/dL Normal 2.5-5.0 [facility] Comment on above: Performed By: #### L [id number] ####[facility] ([facility] [facility] [place] [address] POCT GLUCOSE METER UNSOLICIT ED RESULTSon 09-07-2024 Glucose [Mass/Vol] 200 mg/dL High 70-105 [facility] Comment on above: Order Comment: Waive d Testing in the ED is performed under the ED CLIA certificate #[id number]. Result Comment: droc kol Performed By: #### L [id number] ####[facility] ([facility])[address] [place] [address] Glucose [Mass/Vol] 211 mg/dL High 70-105 [facility] Comment on above: Order Comment: Waive d Testing in the ED is performed under the ED CLIA certificate #[id number]. Result Comment: awul ff3 Performed By: #### L [id number] ####[facility] ([facility])[address] [facility] [place] [address] Glucose [Mass/Vol] 298 mg/dL High 70-105 [facility] Comment on above: Order Comment: Waive d Testing in the ED is performed under the ED CLIA certificate #[id number]. Result Comment: awul ff3 Performed By: #### L [id number] ####[facility] ([facility])[address] [place] [address] Glucose [Mass/Vol] 155 mg/dL High 70-105 [facility] Comment on above: Order Comment: Waive d Testing in the ED is performed under the ED CLIA certificate #[id number]. Result Comment: [email or web address] ff3 Performed By: #### L [id number] ####[facility] ([facility])[address] [place] [address] 30on 09-06-2024 30 Normal [facility] 30 Normal [facility] BASIC METABOLIC PANELon 08-21 Anion gap [Moles/Vol] 11 mmol/L Normal 7-20 [facility] Comment on above: Performed By: #### L [id number] ####[facility] ([facility])[address] [place] [address] Calcium [Mass/Vol] 9.8 mg/dL Normal 8.6-10.3 [facility] Comment on above: Performed By: #### L [id number] ####[facility] ([facility])[address] [place] [address] Chloride [Moles/Vol] 98 mmol/L Normal 98-107 [facility] Comment on above: Performed By: #### L [id number] ####[facility] ([facility])[address] [place] [address] CO2 [Moles/Vol] 31 mmol/L Normal 21-31 [facility] Comment on above: Performed By: #### L [id number] ####[facility] ([facility])[address] [place] [address] Creatinine [Mass/Vol] 0.90 mg/dL Normal 0.70-1.30 [facility] Comment on above: Performed By: #### L [id number] ####[facility] ([facility])[address] [place] [address] GLOMERULAR FILTRATION RATE ML/MIN/1.73 SQ M.PREDICTED 94.8 mL/min/1.73m*2 Normal >60.0 [facility] Comment on above: Result Comment: [facility]???s estimated glomerular filtration rate (eGFR) [...] of individuals. Performed By: #### L [id number] ####[facility] ([facility] [place] [address] Glucose [Mass/Vol] 244 mg/dL High 70-100 [facility] Comment on above: Performed By: #### L [id number] ####[facility] ([facility] [place] [address] Potassium [Moles/Vol] 3.9 mmol/L Normal 3.5-5.1 [facility] Comment on above: Performed By: #### L [id number] ####[facility] ([facility] [place] [address] Sodium [Moles/Vol] 136 mmol/L Normal 136-145 [facility] Comment on above: Performed By: #### L [id number] ####[facility] ([facility] [place] [address] Urea nitrogen [Mass/Vol] 18 mg/dL Normal 7-25 [facility] Comment on above: Performed By: #### L [id number] ####[facility] ([facility] [place] [address] UREA NITROGEN/CREATININE (MASS RATIO) IN SER/PLAS 20.0 Normal [facility] Comment on above: Performed By: #### L [id number] ####[facility] ([facility] [place] [address] CBC WITH AUTO DIFFERENTIALon 09-06-2024 Basophils (Bld) [#/Vol] 0.07 10*3/uL Normal 0.00-0.20 [facility] Comment on above: Performed By: #### L [id number] ####[facility] ([facility])[address] [place] [address] Basophils/100 WBC (Bld) 1.0 % Normal 0.0-1.0 [facility] Comment on above: Performed By: #### L [id number] ####[facility] ([facility])[address] [place] [address] Eosinophils (Bld) [#/Vol] 0.40 10*3/uL Normal 0.00-0.50 [facility] Comment on above: Performed By: #### L [id number] ####[facility] ([facility])[address] [place] [address] Eosinophils/100 WBC (Bld) 5.9 % Normal 0.0-6.0 [facility] Comment on above: Performed By: #### L [id number] ####[facility] ([facility])[address] [place] [address] Erythrocyte distribution width (RBC) [Ratio] 15.2 % High 11.5-15.0 [facility] Comment on above: Performed By: #### L [id number] ####[facility] ([facility])[address] [place] [address] ERYTHROCYTE MEAN CORPUSCULAR HEMOGLOBIN CONCENTRATION (G/DL) BY AUTOMATED 30.7 g/dL Low 32.0-35.0 [facility] Comment on above: Performed By: #### L [id number] ####[facility] (BEAKER)[address] [place] [address] Hematocrit (Bld) [Volume fraction] 47.3 % Normal 39.0-55.0 [facility] Comment on above: Performed By: #### L [id number] ####[facility] (BEAKER)[address] [place] [address] Hemoglobin (Bld) [Mass/Vol] 14.5 g/dL Normal 13.0-17.0 [facility] Comment on above: Performed By: #### L [id number] ####[facility] (BEAKER)[address] [place] [address] Immature granulocytes (Bld) [#/Vol] 0.05 10*3/uL Normal 0.00-0.20 [facility] Comment on above: Performed By: #### L [id number] ####[facility] (BEAKER)[address] [place] [address] Immature granulocytes/100 WBC (Bld) 0.7 % Normal 0.0-1.0 [facility] Comment on above: Performed By: #### L [id number] ####[facility] (BEAKER)[address] [place] [address] Lymphocytes (Bld) [#/Vol] 1.52 10*3/uL Normal 1.20-4.00 [facility] Comment on above: Performed By: #### L [id number] ####[facility] (BEAKER)[address] [place] [address] Lymphocytes/100 WBC (Bld) 22.5 % Normal 20.0-45.0 [facility] Comment on above: Performed By: #### L [id number] ####[facility] (BEAKER)[address] [place] [address] MCH (RBC) [Entitic mass] 29.1 pg Normal 27.0-33.0 [facility] Comment on above: Performed By: #### L [id number] ####[facility] (BEAKER)[address] [place] [address] MCV (RBC) [Entitic vol] 95.0 fL Normal 82.0-98.0 [facility] Comment on above: Performed By: #### L [id number] ####[facility] (BEAKER)[address] [place] [address] Monocytes (Bld) [#/Vol] 0.74 10*3/uL Normal 0.10-1.00 [facility] Comment on above: Performed By: #### L [id number] ####[facility] ([facility] [place] [address] Monocytes/100 WBC (Bld) 10.9 % Normal 5.0-12.0 [facility] Comment on above: Performed By: #### L [id number] ####[facility] ([facility] [place] [address] Neutrophils (Bld) [#/Vol] 3.98 10*3/uL Normal 1.60-7.60 [facility] Comment on above: Performed By: #### L [id number] ####[facility] ([facility] [place] [address] Neutrophils/100 WBC (Bld) 59.0 % Normal 40.0-72.0 [facility] Comment on above: Performed By: #### L [id number] ####[facility] ([facility] [place] [address] NRBC (PER 100 WBCS) BY AUTOMATED COUNT 0.0 % Normal 0 [facility] Comment on above: Performed By: #### L [id number] ####[facility] ([facility] [place] [address] PLATELETS (10*3/UL) IN BLOOD AUTOMATED COUNT 251 10*3/uL Normal 150-400 [facility] Comment on above: Performed By: #### L [id number] ####[facility] ([facility] [place] [address] RBC (Bld) [#/Vol] 4.98 10*6/uL Normal 4.20-5.70 [facility] Comment on above: Performed By: #### L [id number] ####[facility] [place], [place] [address] WBC (Bld) [#/Vol] 6.76 10*3/uL Normal 4.00-10.60 [facility] Comment on above: Performed By: #### L [id number] ####[facility] ([facility] [facility] [place] [address] MAGNESIUMon 09-06-2024 Magnesium [Mass/Vol] 1.6 mg/dL Low 1.9-2.7 [facility] Comment on above: Performed By: #### L [id number] ####[facility] ([facility] [facility] [place] [address] NURSNOTEon 09-06-2024 NURSNOTE Signed off to Ian engel RN--with bedside rounding Pt. Cont. To sit up in a chair at bedside Call light within reach Normal [facility] NURSNOTE Normal [facility] NURSNOTE Pt refused to go yeni k to bed at this time Pt. Cont. To sit up in a chair at bedside No c/o of SOB or nausea at this time Resp. Easy @ 18/min Normal [facility] PHOSPHORUSon 09-06-2024 Magnesium [Mass/Vol] 3.4 mg/dL Normal 2.5-5.0 [facility] Comment on above: Performed By: #### L [id number] ####[facility] ([facility] [place] [address] POCT GLUCOSE METER UNSOLICIT ED RESULTSon 09-06-2024 Glucose [Mass/Vol] 255 mg/dL High 70-105 [facility] Comment on above: Order Comment: Waive d Testing in the ED is performed under the ED CLIA certificate #[id number]. Result Comment: [email or web address] Performed By: #### L [id number] ####[facility] ([facility] [facility] [place] [address] Glucose [Mass/Vol] 208 mg/dL High 70-105 [facility] Comment on above: Order Comment: Waive d Testing in the ED is performed under the ED CLIA certificate #[id number]. Result Comment: [email or web address] Performed By: #### L [id number] ####[facility] ([facility] [place] [address] Glucose [Mass/Vol] 173 mg/dL High 70-105 [facility] Comment on above: Order Comment: Waive d Testing in the ED is performed under the ED CLIA certificate #[id number]. Result Comment: [email or web address] [email or web address] Performed By: #### L [id number] ####[facility] (BEAKER)[address] [place] [address] Glucose [Mass/Vol] 210 mg/dL High 70-105 [facility] Comment on above: Order Comment: Waive d Testing in the ED is performed under the ED CLIA certificate #[id number]. Result Comment: [email or web address] [email or web address] Performed By: #### L [id number] ####[facility] ([facility] [place] [address] BASIC METABOLIC PANELon 08-21 Anion gap [Moles/Vol] 8 mmol/L Normal 7-20 [facility] Comment on above: Performed By: #### L [id number] ####[facility] [place] [address] Calcium [Mass/Vol] 9.9 mg/dL Normal 8.6-10.3 [facility] Comment on above: Performed By: #### L [id number] ####[facility] ([facility] [place] [address] Chloride [Moles/Vol] 98 mmol/L Normal 98-107 [facility] Comment on above: Performed By: #### L [id number] ####[facility] (BEAKER)[address] [place] [address] CO2 [Moles/Vol] 33 mmol/L High 21-31 [facility] Comment on above: Performed By: #### L [id number] ####[facility] (BEAKER)[address] [place] [address] Creatinine [Mass/Vol] 0.90 mg/dL Normal 0.70-1.30 [facility] Comment on above: Performed By: #### L [id number] ####[facility] ([facility] [place] [address] GLOMERULAR FILTRATION RATE ML/MIN/1.73 SQ M.PREDICTED 94.8 mL/min/1.73m*2 Normal >60.0 [facility] Comment on above: Result Comment: [facility]???s estimated glomerular filtration rate (eGFR) [...] of individuals. Performed By: #### L [id number] ####[facility] ([facility] [place] [address] Glucose [Mass/Vol] 142 mg/dL High 70-100 [facility] Comment on above: Performed By: #### L [id number] ####[facility] ([facility] [place] [address] Potassium [Moles/Vol] 4.1 mmol/L Normal 3.5-5.1 [facility] Comment on above: Performed By: #### L [id number] ####[facility] ([facility] [place] [address] Sodium [Moles/Vol] 135 mmol/L Low 136-145 [facility] Comment on above: Performed By: #### L [id number] ####[facility] ([facility] [place] [address] Urea nitrogen [Mass/Vol] 19 mg/dL Normal 7-25 [facility] Comment on above: Performed By: #### L [id number] ####[facility] ([facility] [place] [address] UREA NITROGEN/CREATININE (MASS RATIO) IN SER/PLAS 21.1 Normal [facility] Comment on above: Performed By: #### L [id number] ####[facility] (BEAKER)[address] [place] [address] CBC WITH AUTO DIFFERENTIALon 09-05-2024 Basophils (Bld) [#/Vol] 0.07 10*3/uL Normal 0.00-0.20 [facility] Comment on above: Performed By: #### L [id number] ####[facility] (BEAKER)[address] [place] [address] Basophils/100 WBC (Bld) 0.9 % Normal 0.0-1.0 [facility] Comment on above: Performed By: #### L [id number] ####[facility] (BEAKER)[address] [place] [address] Eosinophils (Bld) [#/Vol] 0.38 10*3/uL Normal 0.00-0.50 [facility] Comment on above: Performed By: #### L [id number] ####[facility] (BEAKER)[address] [place] [address] Eosinophils/100 WBC (Bld) 5.0 % Normal 0.0-6.0 [facility] Comment on above: Performed By: #### L [id number] ####[facility] (BEAKER)[address] [place] [address] Erythrocyte distribution width (RBC) [Ratio] 15.2 % High 11.5-15.0 [facility] Comment on above: Performed By: #### L [id number] ####[facility] (BEAKER)[address] [place] [address] ERYTHROCYTE MEAN CORPUSCULAR HEMOGLOBIN CONCENTRATION (G/DL) BY AUTOMATED 31.4 g/dL Low 32.0-35.0 [facility] Comment on above: Performed By: #### L [id number] ####[facility] (BEAKER)[address] [place] [address] Hematocrit (Bld) [Volume fraction] 47.1 % Normal 39.0-55.0 [facility] Comment on above: Performed By: #### L [id number] ####[facility] (BEAKER)[address] [place] [address] Hemoglobin (Bld) [Mass/Vol] 14.8 g/dL Normal 13.0-17.0 [facility] Comment on above: Performed By: #### L [id number] ####[facility] (BEAKER)[address] [place] [address] Immature granulocytes (Bld) [#/Vol] 0.06 10*3/uL Normal 0.00-0.20 [facility] Comment on above: Performed By: #### L [id number] ####[facility] ([facility] [place] [address] Immature granulocytes/100 WBC (Bld) 0.8 % Normal 0.0-1.0 [facility] Comment on above: Performed By: #### L [id number] ####[facility] ([facility] [place] [address] Lymphocytes (Bld) [#/Vol] 1.99 10*3/uL Normal 1.20-4.00 [facility] Comment on above: Performed By: #### L [id number] ####[facility] (BEAKER)[address] [place] [address] Lymphocytes/100 WBC (Bld) 26.0 % Normal 20.0-45.0 [facility] Comment on above: Performed By: #### L [id number] ####[facility] (BEAKER)[address] [place] [address] MCH (RBC) [Entitic mass] 28.8 pg Normal 27.0-33.0 [facility] Comment on above: Performed By: #### L [id number] ####[facility] (BEAKER)[address] [place] [address] MCV (RBC) [Entitic vol] 91.6 fL Normal 82.0-98.0 [facility] Comment on above: Performed By: #### L [id number] ####[facility] (BEAKER)[address] [place] [address] Monocytes (Bld) [#/Vol] 0.77 10*3/uL Normal 0.10-1.00 [facility] Comment on above: Performed By: #### L [id number] ####[facility] (BEAKER)[address] [place] [address] Monocytes/100 WBC (Bld) 10.1 % Normal 5.0-12.0 [facility] Comment on above: Performed By: #### L [id number] ####[facility] (BEAKER)[address] [place], [place] [address] Neutrophils (Bld) [#/Vol] 4.39 10*3/uL Normal 1.60-7.60 [facility] Comment on above: Performed By: #### L [id number] ####[facility] (BEAKER)[address] [place], [place] [address] Neutrophils/100 WBC (Bld) 57.2 % Normal 40.0-72.0 [facility] Comment on above: Performed By: #### L [id number] ####[facility] (BEAKER)[address] [place], [place] [address] NRBC (PER 100 WBCS) BY AUTOMATED COUNT 0.0 % Normal 0 [facility] Comment on above: Performed By: #### L [id number] ####[facility] (BEAKER)[address] [place], [place] [address] PLATELETS (10*3/UL) IN BLOOD AUTOMATED COUNT 274 10*3/uL Normal 150-400 [facility] Comment on above: Performed By: #### L [id number] ####[facility] (BEAKER)[address] [place], [place] [address] RBC (Bld) [#/Vol] 5.14 10*6/uL Normal 4.20-5.70 [facility] Comment on above: Performed By: #### L [id number] ####[facility] (BEAKER)[address] [place] [address] WBC (Bld) [#/Vol] 7.66 10*3/uL Normal 4.00-10.60 [facility] Comment on above: Performed By: #### L [id number] ####[facility] ([facility] [place] [address] MAGNESIUMon 09-05-2024 Magnesium [Mass/Vol] 1.6 mg/dL Low 1.9-2.7 [facility] Comment on above: Performed By: #### L [id number] ####[facility] ([facility] [place] [address] PHOSPHORUSon 09-05-2024 Magnesium [Mass/Vol] 2.8 mg/dL Normal 2.5-5.0 [facility] Comment on above: Performed By: #### L [id number] ####[facility] ([facility] [place] [address] POCT GLUCOSE METER UNSOLICIT ED RESULTSon 09-05-2024 Glucose [Mass/Vol] 221 mg/dL High 70-105 [facility] Comment on above: Order Comment: Waive d Testing in the ED is performed under the ED CLIA certificate #[id number]. Result Comment: [email or web address] kol Performed By: #### L [id number] ####[facility] ([facility] [place] [address] Glucose [Mass/Vol] 204 mg/dL High 70-105 [facility] Comment on above: Order Comment: Waive d Testing in the ED is performed under the ED CLIA certificate #[id number]. Result Comment: [email or web address] [email or web address] Performed By: #### L [id number] ####[facility] ([facility] [place] [address] Glucose [Mass/Vol] 222 mg/dL High 70-105 [facility] Comment on above: Order Comment: Waive d Testing in the ED is performed under the ED CLIA certificate #[id number]. Result Comment: [email or web address] [email or web address] Performed By: #### L [id number] ####[facility] (BEAKER)[address] [place] [address] Glucose [Mass/Vol] 141 mg/dL High 70-105 [facility] Comment on above: Order Comment: Waive d Testing in the ED is performed under the ED CLIA certificate #[id number]. Result Comment: [email or web address] [email or web address] Performed By: #### L [id number] ####[facility] (BEAKER)[address] [place] [address] 30on 09-04-2024 30 Normal [facility] BASIC METABOLIC PANELon 08-21 Anion gap [Moles/Vol] 7 mmol/L Normal 7-20 [facility] Comment on above: Performed By: #### L [id number] ####[facility] (BEAKER)[address] [place] [address] Calcium [Mass/Vol] 9.6 mg/dL Normal 8.6-10.3 [facility] Comment on above: Performed By: #### L [id number] ####[facility] (BEAKER)[address] [place] [address] Chloride [Moles/Vol] 98 mmol/L Normal 98-107 [facility] Comment on above: Performed By: #### L [id number] ####[facility] (BEAKER)[address] [place] [address] CO2 [Moles/Vol] 35 mmol/L High 21-31 [facility] Comment on above: Performed By: #### L [id number] ####[facility] (BEAKER)[address] [place] [address] Creatinine [Mass/Vol] 0.88 mg/dL Normal 0.70-1.30 [facility] Comment on above: Performed By: #### L [id number] ####[facility] (BEAKER)[address] [place] [address] GLOMERULAR FILTRATION RATE ML/MIN/1.73 SQ M.PREDICTED 95.4 mL/min/1.73m*2 Normal >60.0 [facility] Comment on above: Result Comment: [facility]???s estimated glomerular filtration rate (eGFR) [...] of individuals. Performed By: #### L [id number] ####[facility] ([facility] [place] [address] Glucose [Mass/Vol] 155 mg/dL High 70-100 [facility] Comment on above: Performed By: #### L [id number] ####[facility] ([facility] [place] [address] Potassium [Moles/Vol] 4.3 mmol/L Normal 3.5-5.1 [facility] Comment on above: Performed By: #### L [id number] ####[facility] ([facility] [place] [address] Sodium [Moles/Vol] 136 mmol/L Normal 136-145 [facility] Comment on above: Performed By: #### L [id number] ####[facility] ([facility] [place] [address] Urea nitrogen [Mass/Vol] 22 mg/dL Normal 7-25 [facility] Comment on above: Performed By: #### L [id number] ####[facility] ([facility] [place] [address] UREA NITROGEN/CREATININE (MASS RATIO) IN SER/PLAS 25.0 Normal [facility] Comment on above: Performed By: #### L [id number] ####[facility] ([facility] [place] [address] CBC WITH AUTO DIFFERENTIALon 09-04-2024 Basophils (Bld) [#/Vol] 0.06 10*3/uL Normal 0.00-0.20 [facility] Comment on above: Performed By: #### L [id number] ####[facility] (BEAKER)[address] [place] [address] Basophils/100 WBC (Bld) 1.0 % Normal 0.0-1.0 [facility] Comment on above: Performed By: #### L [id number] ####[facility] (BEAKER)[address] [place] [address] Eosinophils (Bld) [#/Vol] 0.38 10*3/uL Normal 0.00-0.50 [facility] Comment on above: Performed By: #### L [id number] ####[facility] (BEAKER)[address] [place] [address] Eosinophils/100 WBC (Bld) 6.1 % High 0.0-6.0 [facility] Comment on above: Performed By: #### L [id number] ####[facility] (BEAKER)[address] [place] [address] Erythrocyte distribution width (RBC) [Ratio] 15.2 % High 11.5-15.0 [facility] Comment on above: Performed By: #### L [id number] ####[facility] (BEAKER)[address] [place] [address] ERYTHROCYTE MEAN CORPUSCULAR HEMOGLOBIN CONCENTRATION (G/DL) BY AUTOMATED 30.6 g/dL Low 32.0-35.0 [facility] Comment on above: Performed By: #### L [id number] ####[facility] (BEAKER)[address] [place] [address] Hematocrit (Bld) [Volume fraction] 48.4 % Normal 39.0-55.0 [facility] Comment on above: Performed By: #### L [id number] ####[facility] (BEAKER)[address] [place] [address] Hemoglobin (Bld) [Mass/Vol] 14.8 g/dL Normal 13.0-17.0 [facility] Comment on above: Performed By: #### L [id number] ####[facility] (BEAKER)[address] [place] [address] Immature granulocytes (Bld) [#/Vol] 0.04 10*3/uL Normal 0.00-0.20 [facility] Comment on above: Performed By: #### L [id number] ####[facility] (BEAKER)[address] [place] [address] Immature granulocytes/100 WBC (Bld) 0.6 % Normal 0.0-1.0 [facility] Comment on above: Performed By: #### L [id number] ####[facility] (BEAKER)[address] [place] [address] Lymphocytes (Bld) [#/Vol] 1.68 10*3/uL Normal 1.20-4.00 [facility] Comment on above: Performed By: #### L [id number] ####[facility] (BEAKER)[address] [place] [address] Lymphocytes/100 WBC (Bld) 27.1 % Normal 20.0-45.0 [facility] Comment on above: Performed By: #### L [id number] ####[facility] (BEAKER)[address] [place] [address] MCH (RBC) [Entitic mass] 28.6 pg Normal 27.0-33.0 [facility] Comment on above: Performed By: #### L [id number] ####[facility] (BEAKER)[address] [place] [address] MCV (RBC) [Entitic vol] 93.6 fL Normal 82.0-98.0 [facility] Comment on above: Performed By: #### L [id number] ####[facility] (BEAKER)[address] [place] [address] Monocytes (Bld) [#/Vol] 0.74 10*3/uL Normal 0.10-1.00 [facility] Comment on above: Performed By: #### L [id number] ####[facility] ([facility] [address] Monocytes/100 WBC (Bld) 11.9 % Normal 5.0-12.0 [facility] Comment on above: Performed By: #### L [id number] ####[facility] ([facility], [place] [address] Neutrophils (Bld) [#/Vol] 3.31 10*3/uL Normal 1.60-7.60 [facility] Comment on above: Performed By: #### L [id number] ####[facility] ([facility] [place] [address] Neutrophils/100 WBC (Bld) 53.3 % Normal 40.0-72.0 [facility] Comment on above: Performed By: #### L [id number] ####[facility] ([facility], [place] [address] NRBC (PER 100 WBCS) BY AUTOMATED COUNT 0.0 % Normal 0 [facility] Comment on above: Performed By: #### L [id number] ####[facility] ([facility], [place] [address] PLATELETS (10*3/UL) IN BLOOD AUTOMATED COUNT 254 10*3/uL Normal 150-400 [facility] Comment on above: Performed By: #### L [id number] ####[facility] ([facility] [place] [address] RBC (Bld) [#/Vol] 5.17 10*6/uL Normal 4.20-5.70 [facility] Comment on above: Performed By: #### L [id number] ####[facility] [facility] [place] [address] WBC (Bld) [#/Vol] 6.21 10*3/uL Normal 4.00-10.60 [facility] Comment on above: Performed By: #### L [id number] ####[facility] (BEAKER)[address] [place] [address] POCT GLUCOSE METER UNSOLICIT ED RESULTSon 09-04-2024 Glucose [Mass/Vol] 219 mg/dL High 70-105 [facility] Comment on above: Order Comment: Waive d Testing in the ED is performed under the ED CLIA certificate #[id number]. Result Comment: [email or web address] Performed By: #### L [id number] ####[facility] ([facility] [place] [address] Glucose [Mass/Vol] 156 mg/dL High 70-105 [facility] Comment on above: Order Comment: Waive d Testing in the ED is performed under the ED CLIA certificate #[id number]. Result Comment: [email or web address] [email or web address] Performed By: #### L [id number] ####[facility] ([facility] [place] [address] Glucose [Mass/Vol] 190 mg/dL High 70-105 [facility] Comment on above: Order Comment: Waive d Testing in the ED is performed under the ED CLIA certificate #[id number]. Result Comment: [email or web address] ff3 Performed By: #### L [id number] ####[facility] ([facility] [place] [address] Glucose [Mass/Vol] 149 mg/dL High 70-105 [facility] Comment on above: Order Comment: Waive d Testing in the ED is performed under the ED CLIA certificate #[id number]. Result Comment: [email or web address] [email or web address] Performed By: #### L [id number] ####[facility] ([facility] [place] [address] 30on 09-03-2024 30 Normal [facility] BASIC METABOLIC PANELon 08-21 Anion gap [Moles/Vol] 11 mmol/L Normal 7-20 [facility] Comment on above: Performed By: #### L [id number] ####[facility] (BEAKER)[address] [place] [address] Calcium [Mass/Vol] 9.7 mg/dL Normal 8.6-10.3 [facility] Comment on above: Performed By: #### L [id number] ####[facility] (BEAKER)[address] [place] [address] Chloride [Moles/Vol] 96 mmol/L Low 98-107 [facility] Comment on above: Performed By: #### L [id number] ####[facility] ([facility] [place] [address] CO2 [Moles/Vol] 33 mmol/L High 21-31 [facility] Comment on above: Performed By: #### L [id number] ####[facility] ([facility] [place] [address] Creatinine [Mass/Vol] 0.87 mg/dL Normal 0.70-1.30 [facility] Comment on above: Performed By: #### L [id number] ####[facility] ([facility] [place] [address] GLOMERULAR FILTRATION RATE ML/MIN/1.73 SQ M.PREDICTED 95.8 mL/min/1.73m*2 Normal >60.0 [facility] Comment on above: Result Comment: [facility]???s estimated glomerular filtration rate (eGFR) [...] of individuals. Performed By: #### L [id number] ####[facility] ([facility] [place] [address] Glucose [Mass/Vol] 161 mg/dL High 70-100 [facility] Comment on above: Performed By: #### L [id number] ####[facility] ([facility] [place] [address] Potassium [Moles/Vol] 4.2 mmol/L Normal 3.5-5.1 [facility] Comment on above: Performed By: #### L [id number] ####[facility] ([facility] [place] [address] Sodium [Moles/Vol] 136 mmol/L Normal 136-145 [facility] Comment on above: Performed By: #### L [id number] ####[facility] ([facility] [place] [address] Urea nitrogen [Mass/Vol] 23 mg/dL Normal 7-25 [facility] Comment on above: Performed By: #### L [id number] ####[facility] ([facility] [place] [address] UREA NITROGEN/CREATININE (MASS RATIO) IN SER/PLAS 26.4 Normal [facility] Comment on above: Performed By: #### L [id number] ####[facility] ([facility] [place] [address] CBC WITH AUTO DIFFERENTIALon 09-03-2024 Basophils (Bld) [#/Vol] 0.07 10*3/uL Normal 0.00-0.20 [facility] Comment on above: Performed By: #### L [id number] ####[facility] ([facility] [place] [address] Basophils/100 WBC (Bld) 0.8 % Normal 0.0-1.0 [facility] Comment on above: Performed By: #### L [id number] ####[facility] ([facility] [place] [address] Eosinophils (Bld) [#/Vol] 0.40 10*3/uL Normal 0.00-0.50 [facility] Comment on above: Performed By: #### L [id number] ####[facility] (BEAKER)[address] [place] [address] Eosinophils/100 WBC (Bld) 4.8 % Normal 0.0-6.0 [facility] Comment on above: Performed By: #### L [id number] ####[facility] (BEAKER)[address] [place] [address] Erythrocyte distribution width (RBC) [Ratio] 15.3 % High 11.5-15.0 [facility] Comment on above: Performed By: #### L [id number] ####[facility] (BEAKER)[address] [place] [address] ERYTHROCYTE MEAN CORPUSCULAR HEMOGLOBIN CONCENTRATION (G/DL) BY AUTOMATED 31.8 g/dL Low 32.0-35.0 [facility] Comment on above: Performed By: #### L [id number] ####[facility] ([facility] [place] [address] Hematocrit (Bld) [Volume fraction] 46.8 % Normal 39.0-55.0 [facility] Comment on above: Performed By: #### L [id number] ####[facility] (BEAKER)[address] [place] [address] Hemoglobin (Bld) [Mass/Vol] 14.9 g/dL Normal 13.0-17.0 [facility] Comment on above: Performed By: #### L [id number] ####[facility] (BEAKER)[address] [place] [address] Immature granulocytes (Bld) [#/Vol] 0.05 10*3/uL Normal 0.00-0.20 [facility] Comment on above: Performed By: #### L [id number] ####[facility] (BEAKER)[address] [place] [address] Immature granulocytes/100 WBC (Bld) 0.6 % Normal 0.0-1.0 [facility] Comment on above: Performed By: #### L [id number] ####[facility] (BEAKER)[address] [place] [address] Lymphocytes (Bld) [#/Vol] 1.73 10*3/uL Normal 1.20-4.00 [facility] Comment on above: Performed By: #### L [id number] ####[facility] (BEAKER)[address] [place] [address] Lymphocytes/100 WBC (Bld) 20.9 % Normal 20.0-45.0 [facility] Comment on above: Performed By: #### L [id number] ####[facility] (BEAKER)[address] [place] [address] MCH (RBC) [Entitic mass] 29.3 pg Normal 27.0-33.0 [facility] Comment on above: Performed By: #### L [id number] ####[facility] (BEAKER)[address] [place] [address] MCV (RBC) [Entitic vol] 91.9 fL Normal 82.0-98.0 [facility] Comment on above: Performed By: #### L [id number] ####[facility] (BEAKER)[address] [place] [address] Monocytes (Bld) [#/Vol] 0.96 10*3/uL Normal 0.10-1.00 [facility] Comment on above: Performed By: #### L [id number] ####[facility] (BEAKER)[address] [place] [address] Monocytes/100 WBC (Bld) 11.6 % Normal 5.0-12.0 [facility] Comment on above: Performed By: #### L [id number] ####[facility] (BE[facility]ER)[address] [place] [address] Neutrophils (Bld) [#/Vol] 5.06 10*3/uL Normal 1.60-7.60 [facility] Comment on above: Performed By: #### L [id number] ####[facility] (BEAKER)[address] [place] [address] Neutrophils/100 WBC (Bld) 61.3 % Normal 40.0-72.0 [facility] Comment on above: Performed By: #### L [id number] ####[facility] ([facility] [place] [address] NRBC (PER 100 WBCS) BY AUTOMATED COUNT 0.0 % Normal 0 [facility] Comment on above: Performed By: #### L [id number] ####[facility] ([facility] [place] [address] PLATELETS (10*3/UL) IN BLOOD AUTOMATED COUNT 264 10*3/uL Normal 150-400 [facility] Comment on above: Performed By: #### L [id number] ####[facility] ([facility] [place] [address] RBC (Bld) [#/Vol] 5.09 10*6/uL Normal 4.20-5.70 [facility] Comment on above: Performed By: #### L [id number] ####[facility] ([facility] [place] [address] WBC (Bld) [#/Vol] 8.27 10*3/uL Normal 4.00-10.60 [facility] Comment on above: Performed By: #### L [id number] ####[facility] ([facility] [place] [address] MAGNESIUMon 09-03-2024 Magnesium [Mass/Vol] 1.6 mg/dL Low 1.9-2.7 [facility] Comment on above: Performed By: #### L [id number] ####[facility] ([facility] [place] [address] PHOSPHORUSon 09-03-2024 Magnesium [Mass/Vol] 3.3 mg/dL Normal 2.5-5.0 [facility] Comment on above: Performed By: #### L [id number] ####[facility] ([facility] [place] [address] POCT GLUCOSE METER UNSOLICIT ED RESULTSon 09-03-2024 Glucose [Mass/Vol] 168 mg/dL High 70-105 [facility] Comment on above: Order Comment: Waive d Testing in the ED is performed under the ED CLIA certificate #[id number]. Result Comment: [email or web address] pp Performed By: #### L [id number] ####[facility] (BEAKER)[address] [place] [address] Glucose [Mass/Vol] 184 mg/dL High 70-105 [facility] Comment on above: Order Comment: Waive d Testing in the ED is performed under the ED CLIA certificate #[id number]. Result Comment: [email or web address] [email or web address] Performed By: #### L [id number] ####[facility] ([place])[address] [place] [address] Glucose [Mass/Vol] 205 mg/dL High 70-105 [facility] Comment on above: Order Comment: Waive d Testing in the ED is performed under the ED CLIA certificate #[id number]. Result Comment: mhil [email or web address] Performed By: #### L [id number] ####[facility] ([place])[address] [place] [address] Glucose [Mass/Vol] 145 mg/dL High 70-105 [facility] Comment on above: Order Comment: Waive d Testing in the ED is performed under the ED CLIA certificate #[id number]. Result Comment: [email or web address] [email or web address] Performed By: #### L [id number] ####[facility] (BEAKER)[address] [place] [address] 30on 09-02-2024 30 Normal [facility] BASIC METABOLIC PANELon 08-21 Anion gap [Moles/Vol] 8 mmol/L Normal 7-20 [facility] Comment on above: Performed By: #### L [id number] ####[facility] (BEAKER)[address] [place] [address] Calcium [Mass/Vol] 9.5 mg/dL Normal 8.6-10.3 [facility] Comment on above: Performed By: #### L [id number] ####[facility] (BEAKER)[address] [place] [address] Chloride [Moles/Vol] 99 mmol/L Normal 98-107 [facility] Comment on above: Performed By: #### L [id number] ####[facility] (BEAKER)[address] [place] [address] CO2 [Moles/Vol] 37 mmol/L High 21-31 [facility] Comment on above: Performed By: #### L [id number] ####[facility] (BEAKER)[address] [place] [address] Creatinine [Mass/Vol] 0.77 mg/dL Normal 0.70-1.30 [facility] Comment on above: Performed By: #### L [id number] ####[facility] ([facility] [place] [address] GLOMERULAR FILTRATION RATE ML/MIN/1.73 SQ M.PREDICTED 99.4 mL/min/1.73m*2 Normal >60.0 [facility] Comment on above: Result Comment: [facility]???s estimated glomerular filtration rate (eGFR) [...] of individuals. Performed By: #### L [id number] ####[facility] (BEAKER)[address] [place] [address] Glucose [Mass/Vol] 160 mg/dL High 70-100 [facility] Comment on above: Performed By: #### L [id number] ####[facility] (BEAKER)[address] [place] [address] Potassium [Moles/Vol] 4.1 mmol/L Normal 3.5-5.1 [facility] Comment on above: Performed By: #### L [id number] ####[facility] ([facility] [place] [address] Sodium [Moles/Vol] 140 mmol/L Normal 136-145 [facility] Comment on above: Performed By: #### L [id number] ####[facility] ([facility] [place] [address] Urea nitrogen [Mass/Vol] 16 mg/dL Normal 7-25 [facility] Comment on above: Performed By: #### L [id number] ####[facility] ([facility] [place] [address] UREA NITROGEN/CREATININE (MASS RATIO) IN SER/PLAS 20.8 Normal [facility] Comment on above: Performed By: #### L [id number] ####[facility] ([facility] [place] [address] CBC WITH AUTO DIFFERENTIALon 09-02-2024 Basophils (Bld) [#/Vol] 0.07 10*3/uL Normal 0.00-0.20 [facility] Comment on above: Performed By: #### L [id number] ####[facility] ([facility] [place] [address] Basophils/100 WBC (Bld) 1.0 % Normal 0.0-1.0 [facility] Comment on above: Performed By: #### L [id number] ####[facility] ([facility] [place] [address] Eosinophils (Bld) [#/Vol] 0.34 10*3/uL Normal 0.00-0.50 [facility] Comment on above: Performed By: #### L [id number] ####[facility] ([facility] [place] [address] Eosinophils/100 WBC (Bld) 5.0 % Normal 0.0-6.0 [facility] Comment on above: Performed By: #### L [id number] ####[facility] ([facility] [place] [address] Erythrocyte distribution width (RBC) [Ratio] 15.1 % High 11.5-15.0 [facility] Comment on above: Performed By: #### L [id number] ####[facility] ([facility] [place] [address] ERYTHROCYTE MEAN CORPUSCULAR HEMOGLOBIN CONCENTRATION (G/DL) BY AUTOMATED 31.0 g/dL Low 32.0-35.0 [facility] Comment on above: Performed By: #### L [id number] ####[facility] ([facility] [place] [address] Hematocrit (Bld) [Volume fraction] 46.2 % Normal 39.0-55.0 [facility] Comment on above: Performed By: #### L [id number] ####[facility] ([facility] [place] [address] Hemoglobin (Bld) [Mass/Vol] 14.3 g/dL Normal 13.0-17.0 [facility] Comment on above: Performed By: #### L [id number] ####[facility] ([facility] [place] [address] Immature granulocytes (Bld) [#/Vol] 0.04 10*3/uL Normal 0.00-0.20 [facility] Comment on above: Performed By: #### L [id number] ####[facility] ([facility] [place] [address] Immature granulocytes/100 WBC (Bld) 0.6 % Normal 0.0-1.0 [facility] Comment on above: Performed By: #### L [id number] ####[facility] ([facility] [place] [address] Lymphocytes (Bld) [#/Vol] 1.60 10*3/uL Normal 1.20-4.00 [facility] Comment on above: Performed By: #### L [id number] ####[facility] (BEAKER)[address] [place] [address] Lymphocytes/100 WBC (Bld) 23.7 % Normal 20.0-45.0 [facility] Comment on above: Performed By: #### L [id number] ####[facility] (BEAKER)[address] [place] [address] MCH (RBC) [Entitic mass] 28.8 pg Normal 27.0-33.0 [facility] Comment on above: Performed By: #### L [id number] ####[facility] (BEAKER)[address] [place] [address] MCV (RBC) [Entitic vol] 93.1 fL Normal 82.0-98.0 [facility] Comment on above: Performed By: #### L [id number] ####[facility] (BEAKER)[address] [place] [address] Monocytes (Bld) [#/Vol] 0.86 10*3/uL Normal 0.10-1.00 [facility] Comment on above: Performed By: #### L [id number] ####[facility] (BEAKER)[address] [place] [address] Monocytes/100 WBC (Bld) 12.8 % High 5.0-12.0 [facility] Comment on above: Performed By: #### L [id number] ####[facility] (BEAKER)[address] [place] [address] Neutrophils (Bld) [#/Vol] 3.83 10*3/uL Normal 1.60-7.60 [facility] Comment on above: Performed By: #### L [id number] ####[facility] (BEAKER)[address] [place] [address] Neutrophils/100 WBC (Bld) 56.9 % Normal 40.0-72.0 [facility] Comment on above: Performed By: #### L [id number] ####[facility] (BEAKER)[address] [place] [address] NRBC (PER 100 WBCS) BY AUTOMATED COUNT 0.0 % Normal 0 [facility] Comment on above: Performed By: #### L [id number] ####[facility] ([facility] [place] [address] PLATELETS (10*3/UL) IN BLOOD AUTOMATED COUNT 264 10*3/uL Normal 150-400 [facility] Comment on above: Performed By: #### L [id number] ####[facility] ([facility] [place] [address] RBC (Bld) [#/Vol] 4.96 10*6/uL Normal 4.20-5.70 [facility] Comment on above: Performed By: #### L [id number] ####[facility] ([facility] [place] [address] WBC (Bld) [#/Vol] 6.74 10*3/uL Normal 4.00-10.60 [facility] Comment on above: Performed By: #### L [id number] ####[facility] ([facility] [place] [address] NURSNOTEon 09-02-2024 NURSNOTE Normal [facility] NURSNOTE Normal [facility] PHOSPHORUSon 09-02-2024 Magnesium [Mass/Vol] 3.1 mg/dL Normal 2.5-5.0 [facility] Comment on above: Performed By: #### L [id number] ####[facility] ([facility] [place] [address] POCT GLUCOSE METER UNSOLICIT ED RESULTSon 09-02-2024 Glucose [Mass/Vol] 289 mg/dL High 70-105 [facility] Comment on above: Order Comment: Waive d Testing in the ED is performed under the ED CLIA certificate #[id number]. Result Comment: [email or web address] Performed By: #### L [id number] ####[facility] ([facility] [place] [address] Glucose [Mass/Vol] 260 mg/dL High 70-105 [facility] Comment on above: Order Comment: Waive d Testing in the ED is performed under the ED CLIA certificate #[id number]. Result Comment: sbel cad Performed By: #### L [id number] ####[facility] ([facility] [place] [address] Glucose [Mass/Vol] 204 mg/dL High 70-105 [facility] Comment on above: Order Comment: Waive d Testing in the ED is performed under the ED CLIA certificate #[id number]. Result Comment: sbel cad Performed By: #### L [id number] ####[facility] ([facility] [place] [address] Glucose [Mass/Vol] 166 mg/dL High 70-105 [facility] Comment on above: Order Comment: Waive d Testing in the ED is performed under the ED CLIA certificate #[id number]. Result Comment: sbel cad Performed By: #### L [id number] ####[facility] ([facility] [place] [address] 30on 09-01-2024 30 Normal [facility] BASIC METABOLIC PANELon 08-21 Anion gap [Moles/Vol] 7 mmol/L Normal 7-20 [facility] Comment on above: Performed By: #### L [id number] ####[facility] ([facility] [place] [address] Calcium [Mass/Vol] 9.1 mg/dL Normal 8.6-10.3 [facility] Comment on above: Performed By: #### L [id number] ####[facility] ([facility] [place] [address] Chloride [Moles/Vol] 98 mmol/L Normal 98-107 [facility] Comment on above: Performed By: #### L [id number] ####[facility] ([facility] [place] [address] CO2 [Moles/Vol] 36 mmol/L High 21-31 [facility] Comment on above: Performed By: #### L [id number] ####[facility] ([facility] [place] [address] Creatinine [Mass/Vol] 0.84 mg/dL Normal 0.70-1.30 [facility] Comment on above: Performed By: #### L [id number] ####[facility] ([facility] [place] [address] GLOMERULAR FILTRATION RATE ML/MIN/1.73 SQ M.PREDICTED 96.8 mL/min/1.73m*2 Normal >60.0 [facility] Comment on above: Result Comment: [facility]???s estimated glomerular filtration rate (eGFR) [...] of individuals. Performed By: #### L [id number] ####[facility] ([facility] [place] [address] Glucose [Mass/Vol] 190 mg/dL High 70-100 [facility] Comment on above: Performed By: #### L [id number] ####[facility] ([facility] [place] [address] Potassium [Moles/Vol] 4.1 mmol/L Normal 3.5-5.1 [facility] Comment on above: Performed By: #### L [id number] ####[facility] ([facility] [place] [address] Sodium [Moles/Vol] 137 mmol/L Normal 136-145 [facility] Comment on above: Performed By: #### L [id number] ####[facility] ([facility])[address] [place] [address] Urea nitrogen [Mass/Vol] 18 mg/dL Normal 7-25 [facility] Comment on above: Performed By: #### L [id number] ####[facility] [address] UREA NITROGEN/CREATININE (MASS RATIO) IN SER/PLAS 21.4 Normal [facility] Comment on above: Performed By: #### L [id number] ####[facility] [place] [address] CBC WITH AUTO DIFFERENTIALon 09-01-2024 Basophils (Bld) [#/Vol] 0.07 10*3/uL Normal 0.00-0.20 [facility] Comment on above: Performed By: #### L [id number] ####[facility] ([facility] [place] [address] Basophils/100 WBC (Bld) 1.0 % Normal 0.0-1.0 [facility] Comment on above: Performed By: #### L [id number] ####[facility] [place] [address] Eosinophils (Bld) [#/Vol] 0.37 10*3/uL Normal 0.00-0.50 [facility] Comment on above: Performed By: #### L [id number] ####[facility] ([facility] [place] [address] Eosinophils/100 WBC (Bld) 5.1 % Normal 0.0-6.0 [facility] Comment on above: Performed By: #### L [id number] ####[facility] ([facility] [place] [address] Erythrocyte distribution width (RBC) [Ratio] 15.1 % High 11.5-15.0 [facility] Comment on above: Performed By: #### L [id number] ####[facility] ([facility] [place] [address] ERYTHROCYTE MEAN CORPUSCULAR HEMOGLOBIN CONCENTRATION (G/DL) BY AUTOMATED 31.3 g/dL Low 32.0-35.0 [facility] Comment on above: Performed By: #### L [id number] ####[facility] ([facility] [place] [address] Hematocrit (Bld) [Volume fraction] 46.3 % Normal 39.0-55.0 [facility] Comment on above: Performed By: #### L [id number] ####[facility] ([facility] [place] [address] Hemoglobin (Bld) [Mass/Vol] 14.5 g/dL Normal 13.0-17.0 [facility] Comment on above: Performed By: #### L [id number] ####[facility] ([facility] [place] [address] Immature granulocytes (Bld) [#/Vol] 0.04 10*3/uL Normal 0.00-0.20 [facility] Comment on above: Performed By: #### L [id number] ####[facility] ([facility] [place] [address] Immature granulocytes/100 WBC (Bld) 0.6 % Normal 0.0-1.0 [facility] Comment on above: Performed By: #### L [id number] ####[facility] ([facility] [place] [address] Lymphocytes (Bld) [#/Vol] 1.46 10*3/uL Normal 1.20-4.00 [facility] Comment on above: Performed By: #### L [id number] ####[facility] ([facility] [place] [address] Lymphocytes/100 WBC (Bld) 20.2 % Normal 20.0-45.0 [facility] Comment on above: Performed By: #### L [id number] ####[facility] ([facility] [place] [address] MCH (RBC) [Entitic mass] 29.1 pg Normal 27.0-33.0 [facility] Comment on above: Performed By: #### L [id number] ####[facility] ([facility] [place] [address] MCV (RBC) [Entitic vol] 92.8 fL Normal 82.0-98.0 [facility] Comment on above: Performed By: #### L [id number] ####[facility] ([facility] [place] [address] Monocytes (Bld) [#/Vol] 0.85 10*3/uL Normal 0.10-1.00 [facility] Comment on above: Performed By: #### L [id number] ####[facility] ([facility] [place] [address] Monocytes/100 WBC (Bld) 11.8 % Normal 5.0-12.0 [facility] Comment on above: Performed By: #### L [id number] ####[facility] ([facility] [place] [address] Neutrophils (Bld) [#/Vol] 4.43 10*3/uL Normal 1.60-7.60 [facility] Comment on above: Performed By: #### L [id number] ####[facility] ([facility] [place] [address] Neutrophils/100 WBC (Bld) 61.3 % Normal 40.0-72.0 [facility] Comment on above: Performed By: #### L [id number] ####[facility] ([facility])[address] [place] [address] NRBC (PER 100 WBCS) BY AUTOMATED COUNT 0.0 % Normal 0 [facility] Comment on above: Performed By: #### L [id number] ####[facility] ([facility])[address] [place] [address] PLATELETS (10*3/UL) IN BLOOD AUTOMATED COUNT 268 10*3/uL Normal 150-400 [facility] Comment on above: Performed By: #### L [id number] ####[facility] ([facility] [place] [address] RBC (Bld) [#/Vol] 4.99 10*6/uL Normal 4.20-5.70 [facility] Comment on above: Performed By: #### L [id number] ####[facility] ([facility] [place] [address] WBC (Bld) [#/Vol] 7.22 10*3/uL Normal 4.00-10.60 [facility] Comment on above: Performed By: #### L [id number] ####[facility] ([facility] [place] [address] MAGNESIUMon 09-01-2024 Magnesium [Mass/Vol] 1.8 mg/dL Low 1.9-2.7 [facility] Comment on above: Performed By: #### L [id number] ####[facility] ([facility] [place] [address] POCT GLUCOSE METER UNSOLICIT ED RESULTSon 09-01-2024 Glucose [Mass/Vol] 225 mg/dL High 70-105 [facility] Comment on above: Order Comment: Waive d Testing in the ED is performed under the ED CLIA certificate #[id number]. Result Comment: [email or web address] Performed By: #### L [id number] ####[facility] ([facility] [place] [address] Glucose [Mass/Vol] 181 mg/dL High 70-105 [facility] Comment on above: Order Comment: Waive d Testing in the ED is performed under the ED CLIA certificate #[id number]. Result Comment: [email or web address] Performed By: #### L [id number] ####[facility] ([facility] [place] [address] Glucose [Mass/Vol] 209 mg/dL High 70-105 [facility] Comment on above: Order Comment: Waive d Testing in the ED is performed under the ED CLIA certificate #[id number]. Result Comment: [email or web address] Performed By: #### L [id number] ####[facility] ([facility])[address] [place] [address] Glucose [Mass/Vol] 181 mg/dL High 70-105 [facility] Comment on above: Order Comment: Waive d Testing in the ED is performed under the ED CLIA certificate #[id number]. Result Comment: [email or web address] Performed By: #### L [id number] ####[facility] ([facility])[address] [place] [address] 30on 08-31-[address] [facility] [address] [facility] BASIC METABOLIC PANELon 08-21 Anion gap [Moles/Vol] 8 mmol/L Normal 7-20 [facility] Comment on above: Performed By: #### L [id number] ####[facility] ([facility])[address] [place] [address] Calcium [Mass/Vol] 9.6 mg/dL Normal 8.6-10.3 [facility] Comment on above: Performed By: #### L [id number] ####[facility] ([facility])[address] [place] [address] Chloride [Moles/Vol] 97 mmol/L Low 98-107 [facility] Comment on above: Performed By: #### L [id number] ####[facility] ([facility])[address] [place] [address] CO2 [Moles/Vol] 35 mmol/L High 21-31 [facility] Comment on above: Performed By: #### L [id number] ####[facility] ([facility])[address] [place] [address] Creatinine [Mass/Vol] 0.85 mg/dL Normal 0.70-1.30 [facility] Comment on above: Performed By: #### L [id number] ####[facility] ([facility] [place] [address] GLOMERULAR FILTRATION RATE ML/MIN/1.73 SQ M.PREDICTED 96.4 mL/min/1.73m*2 Normal >60.0 [facility] Comment on above: Result Comment: [facility]???s estimated glomerular filtration rate (eGFR) [...] of individuals. Performed By: #### L [id number] ####[facility] ([facility] [place] [address] Glucose [Mass/Vol] 205 mg/dL High 70-100 [facility] Comment on above: Performed By: #### L [id number] ####[facility] ([facility] [place] [address] Potassium [Moles/Vol] 3.9 mmol/L Normal 3.5-5.1 [facility] Comment on above: Performed By: #### L [id number] ####[facility] ([facility] [place] [address] Sodium [Moles/Vol] 136 mmol/L Normal 136-145 [facility] Comment on above: Performed By: #### L [id number] ####[facility] ([facility] [place] [address] Urea nitrogen [Mass/Vol] 21 mg/dL Normal 7-25 [facility] Comment on above: Performed By: #### L [id number] ####[facility] ([facility] [place] [address] UREA NITROGEN/CREATININE (MASS RATIO) IN SER/PLAS 24.7 Normal [facility] Comment on above: Performed By: #### L [id number] ####[facility] ([facility])[address] [place] [address] CBC WITH AUTO DIFFERENTIALon 08-31-2024 Basophils (Bld) [#/Vol] 0.06 10*3/uL Normal 0.00-0.20 [facility] Comment on above: Performed By: #### L [id number] ####[facility] ([facility])[address] [place] [address] Basophils/100 WBC (Bld) 0.8 % Normal 0.0-1.0 [facility] Comment on above: Performed By: #### L [id number] ####[facility] ([facility])[address] [place] [address] Eosinophils (Bld) [#/Vol] 0.38 10*3/uL Normal 0.00-0.50 [facility] Comment on above: Performed By: #### L [id number] ####[facility] ([facility])[address] [place] [address] Eosinophils/100 WBC (Bld) 5.3 % Normal 0.0-6.0 [facility] Comment on above: Performed By: #### L [id number] ####[facility] ([facility])[address] [place] [address] Erythrocyte distribution width (RBC) [Ratio] 15.2 % High 11.5-15.0 [facility] Comment on above: Performed By: #### L [id number] ####[facility] ([facility])[address] [place] [address] ERYTHROCYTE MEAN CORPUSCULAR HEMOGLOBIN CONCENTRATION (G/DL) BY AUTOMATED 30.4 g/dL Low 32.0-35.0 [facility] Comment on above: Performed By: #### L [id number] ####[facility] ([facility])[address] [place] [address] Hematocrit (Bld) [Volume fraction] 48.3 % Normal 39.0-55.0 [facility] Comment on above: Performed By: #### L [id number] ####[facility] ([facility])[address] [place] [address] Hemoglobin (Bld) [Mass/Vol] 14.7 g/dL Normal 13.0-17.0 [facility] Comment on above: Performed By: #### L [id number] ####[facility] ([facility])[address] [place] [address] Immature granulocytes (Bld) [#/Vol] 0.06 10*3/uL Normal 0.00-0.20 [facility] Comment on above: Performed By: #### L [id number] ####[facility] [place] [address] Immature granulocytes/100 WBC (Bld) 0.8 % Normal 0.0-1.0 [facility] Comment on above: Performed By: #### L [id number] ####[facility] ([facility] [place] [address] Lymphocytes (Bld) [#/Vol] 1.17 10*3/uL Low 1.20-4.00 [facility] Comment on above: Performed By: #### L [id number] ####[facility] ([facility])[address] [place] [address] Lymphocytes/100 WBC (Bld) 16.3 % Low 20.0-45.0 [facility] Comment on above: Performed By: #### L [id number] ####[facility] ([facility])[address] [place] [address] MCH (RBC) [Entitic mass] 29.0 pg Normal 27.0-33.0 [facility] Comment on above: Performed By: #### L [id number] ####[facility] ([facility])[address] [place] [address] MCV (RBC) [Entitic vol] 95.3 fL Normal 82.0-98.0 [facility] Comment on above: Performed By: #### L [id number] ####[facility] ([facility])[address] [place] [address] Monocytes (Bld) [#/Vol] 0.82 10*3/uL Normal 0.10-1.00 [facility] Comment on above: Performed By: #### L [id number] ####[facility] ([facility])[address] [place] [address] Monocytes/100 WBC (Bld) 11.4 % Normal 5.0-12.0 [facility] Comment on above: Performed By: #### L [id number] ####[facility] ([facility])[address] [place], [place] [address] Neutrophils (Bld) [#/Vol] 4.70 10*3/uL Normal 1.60-7.60 [facility] Comment on above: Performed By: #### L [id number] ####[facility] ([facility])[address] [place], [place] [address] Neutrophils/100 WBC (Bld) 65.4 % Normal 40.0-72.0 [facility] Comment on above: Performed By: #### L [id number] ####[facility] ([facility])[address] [place], [place] [address] NRBC (PER 100 WBCS) BY AUTOMATED COUNT 0.0 % Normal 0 [facility] Comment on above: Performed By: #### L [id number] ####[facility] ([facility])[address] [place], [place] [address] PLATELETS (10*3/UL) IN BLOOD AUTOMATED COUNT 278 10*3/uL Normal 150-400 [facility] Comment on above: Performed By: #### L [id number] ####[facility] ([facility])[address] [place], [place] [address] RBC (Bld) [#/Vol] 5.07 10*6/uL Normal 4.20-5.70 [facility] Comment on above: Performed By: #### L [id number] ####[facility] ([facility])[address] [place] [address] WBC (Bld) [#/Vol] 7.19 10*3/uL Normal 4.00-10.60 [facility] Comment on above: Performed By: #### L [id number] ####[facility] ([facility] [place] [address] MAGNESIUMon 08-31-2024 Magnesium [Mass/Vol] 1.6 mg/dL Low 1.9-2.7 [facility] Comment on above: Performed By: #### L [id number] ####[facility] ([facility] [place] [address] POCT GLUCOSE METER UNSOLICIT ED RESULTSon 08-31-2024 Glucose [Mass/Vol] 281 mg/dL High 70-105 [facility] Comment on above: Order Comment: Waive d Testing in the ED is performed under the ED CLIA certificate #[id number]. Result Comment: [email or web address] Performed By: #### L [id number] ####[facility] ([facility] [place] [address] Glucose [Mass/Vol] 157 mg/dL High 70-105 [facility] Comment on above: Order Comment: Waive d Testing in the ED is performed under the ED CLIA certificate #[id number]. Result Comment: [email or web address] Performed By: #### L [id number] ####[facility] ([facility] [place] [address] Glucose [Mass/Vol] 212 mg/dL High 70-105 [facility] Comment on above: Order Comment: Waive d Testing in the ED is performed under the ED CLIA certificate #[id number]. Result Comment: [email or web address] Performed By: #### L [id number] ####[facility] ([facility] [place] [address] Glucose [Mass/Vol] 167 mg/dL High 70-105 [facility] Comment on above: Order Comment: Waive d Testing in the ED is performed under the ED CLIA certificate #[id number]. Result Comment: [email or web address] Performed By: #### L [id number] ####[facility] ([facility])[address] [place] [address] 30on 08-30-2024 30 Normal [facility] BASIC METABOLIC PANELon 08-21 Anion gap [Moles/Vol] 10 mmol/L Normal 7-20 [facility] Comment on above: Performed By: #### L [id number] ####[facility] ([facility])[address] [place] [address] Calcium [Mass/Vol] 10.3 mg/dL Normal 8.6-10.3 [facility] Comment on above: Performed By: #### L [id number] ####[facility] ([facility])[address] [place] [address] Chloride [Moles/Vol] 94 mmol/L Low 98-107 [facility] Comment on above: Performed By: #### L [id number] ####[facility] ([facility])[address] [place] [address] CO2 [Moles/Vol] 34 mmol/L High 21-31 [facility] Comment on above: Performed By: #### L [id number] ####[facility] ([facility])[address] [place] [address] Creatinine [Mass/Vol] 0.98 mg/dL Normal 0.70-1.30 [facility] Comment on above: Performed By: #### L [id number] ####[facility] ([facility])[address] [place] [address] GLOMERULAR FILTRATION RATE ML/MIN/1.73 SQ M.PREDICTED 85.6 mL/min/1.73m*2 Normal >60.0 [facility] Comment on above: Result Comment: [facility]???s estimated glomerular filtration rate (eGFR) [...] of individuals. Performed By: #### L [id number] ####[facility] ([facility] [place] [address] Glucose [Mass/Vol] 184 mg/dL High 70-100 [facility] Comment on above: Performed By: #### L [id number] ####[facility] ([facility] [place] [address] Potassium [Moles/Vol] 4.1 mmol/L Normal 3.5-5.1 [facility] Comment on above: Performed By: #### L [id number] ####[facility] ([facility] [place] [address] Sodium [Moles/Vol] 134 mmol/L Low 136-145 [facility] Comment on above: Performed By: #### L [id number] ####[facility] ([facility] [address] Urea nitrogen [Mass/Vol] 27 mg/dL High 7-25 [facility] Comment on above: Performed By: #### L [id number] ####[facility] ([facility] [address] UREA NITROGEN/CREATININE (MASS RATIO) IN SER/PLAS 27.6 Normal [facility] Comment on above: Performed By: #### L [id number] ####[facility] ([facility] [address] CBC WITH AUTO DIFFERENTIALon 08-30-2024 Basophils (Bld) [#/Vol] 0.09 10*3/uL Normal 0.00-0.20 [facility] Comment on above: Performed By: #### L [id number] ####[facility] ([facility] [place] [address] Basophils/100 WBC (Bld) 1.0 % Normal 0.0-1.0 [facility] Comment on above: Performed By: #### L [id number] ####[facility] ([facility])[address] [place] [address] Eosinophils (Bld) [#/Vol] 0.54 10*3/uL High 0.00-0.50 [facility] Comment on above: Performed By: #### L [id number] ####[facility] ([facility])[address] [place] [address] Eosinophils/100 WBC (Bld) 5.9 % Normal 0.0-6.0 [facility] Comment on above: Performed By: #### L [id number] ####[facility] ([facility])[address] [place] [address] Erythrocyte distribution width (RBC) [Ratio] 14.9 % Normal 11.5-15.0 [facility] Comment on above: Performed By: #### L [id number] ####[facility] ([facility])[address] [place] [address] ERYTHROCYTE MEAN CORPUSCULAR HEMOGLOBIN CONCENTRATION (G/DL) BY AUTOMATED 31.0 g/dL Low 32.0-35.0 [facility] Comment on above: Performed By: #### L [id number] ####[facility] ([facility])[address] [place] [address] Hematocrit (Bld) [Volume fraction] 50.9 % Normal 39.0-55.0 [facility] Comment on above: Performed By: #### L [id number] ####[facility] ([facility])[address] [place] [address] Hemoglobin (Bld) [Mass/Vol] 15.8 g/dL Normal 13.0-17.0 [facility] Comment on above: Performed By: #### L [id number] ####[facility] ([facility])[address] [place] [address] Immature granulocytes (Bld) [#/Vol] 0.06 10*3/uL Normal 0.00-0.20 [facility] Comment on above: Performed By: #### L [id number] ####[facility] [place] [address] Immature granulocytes/100 WBC (Bld) 0.7 % Normal 0.0-1.0 [facility] Comment on above: Performed By: #### L [id number] ####[facility] ([facility] [place] [address] Lymphocytes (Bld) [#/Vol] 1.65 10*3/uL Normal 1.20-4.00 [facility] Comment on above: Performed By: #### L [id number] ####[facility] ([facility] [place] [address] Lymphocytes/100 WBC (Bld) 17.9 % Low 20.0-45.0 [facility] Comment on above: Performed By: #### L [id number] ####[facility] ([facility] [place] [address] MCH (RBC) [Entitic mass] 29.2 pg Normal 27.0-33.0 [facility] Comment on above: Performed By: #### L [id number] ####[facility] ([facility])[address] [place] [address] MCV (RBC) [Entitic vol] 93.9 fL Normal 82.0-98.0 [facility] Comment on above: Performed By: #### L [id number] ####[facility] ([facility])[address] [place] [address] Monocytes (Bld) [#/Vol] 1.05 10*3/uL High 0.10-1.00 [facility] Comment on above: Performed By: #### L [id number] ####[facility] ([facility])[address] [place] [address] Monocytes/100 WBC (Bld) 11.4 % Normal 5.0-12.0 [facility] Comment on above: Performed By: #### L [id number] ####[facility] ([facility] [place] [address] Neutrophils (Bld) [#/Vol] 5.82 10*3/uL Normal 1.60-7.60 [facility] Comment on above: Performed By: #### L [id number] ####[facility] ([facility] [address] Neutrophils/100 WBC (Bld) 63.1 % Normal 40.0-72.0 [facility] Comment on above: Performed By: #### L [id number] ####[facility] ([facility] [place] [address] NRBC (PER 100 WBCS) BY AUTOMATED COUNT 0.0 % Normal 0 [facility] Comment on above: Performed By: #### L [id number] ####[facility] ([facility] [place] [address] PLATELETS (10*3/UL) IN BLOOD AUTOMATED COUNT 298 10*3/uL Normal 150-400 [facility] Comment on above: Performed By: #### L [id number] ####[facility] ([facility] [address] RBC (Bld) [#/Vol] 5.42 10*6/uL Normal 4.20-5.70 [facility] Comment on above: Performed By: #### L [id number] ####[facility] ([facility] [place] [address] WBC (Bld) [#/Vol] 9.21 10*3/uL Normal 4.00-10.60 [facility] Comment on above: Performed By: #### L [id number] ####[facility] ([facility] [address] CONSULTon 08-30-2024 CONSULT Normal [facility] MAGNESIUMon 08-30-2024 Magnesium [Mass/Vol] 1.7 mg/dL Low 1.9-2.7 [facility] Comment on above: Performed By: #### L [id number] ####[facility] ([facility] [place] [address] NURSNOTEon 08-30-2024 NURSNOTE Normal [facility] POCT GLUCOSE METER UNSOLICIT ED RESULTSon 08-30-2024 Glucose [Mass/Vol] 294 mg/dL High 70-105 [facility] Comment on above: Order Comment: Waive d Testing in the ED is performed under the ED CLIA certificate #[id number]. Result Comment: [email or web address] [id number] Value Noted Performed By: #### L [id number] ####[facility] ([facility] [place] [address] Glucose [Mass/Vol] 162 mg/dL High 70-105 [facility] Comment on above: Order Comment: Waive d Testing in the ED is performed under the ED CLIA certificate #[id number]. Result Comment: abee rbo Performed By: #### L [id number] ####[facility] ([facility] [place] [address] Glucose [Mass/Vol] 193 mg/dL High 70-105 [facility] Comment on above: Order Comment: Waive d Testing in the ED is performed under the ED CLIA certificate #[id number]. Result Comment: abee rbo Performed By: #### L [id number] ####[facility] ([facility] [place] [address] Glucose [Mass/Vol] 235 mg/dL High 70-105 [facility] Comment on above: Order Comment: Waive d Testing in the ED is performed under the ED CLIA certificate #[id number]. Result Comment: [email or web address] [email or web address] Performed By: #### L [id number] ####[facility] ([place])[address] [place] [address] Glucose [Mass/Vol] 209 mg/dL High 70-105 [facility] Comment on above: Order Comment: Waive d Testing in the ED is performed under the ED CLIA certificate #[id number]. Result Comment: [email or web address] [email or web address] Performed By: #### L [id number] ####[facility] [place] [address] BASIC METABOLIC PANELon 02-0 Anion gap [Moles/Vol] 7 mmol/L Normal 7-20 [facility] Comment on above: Performed By: #### L [id number] ####[facility] ([facility] [place] [address] Calcium [Mass/Vol] 10.5 mg/dL High 8.6-10.3 [facility] Comment on above: Performed By: #### L [id number] ####[facility] ([facility] [place] [address] Chloride [Moles/Vol] 93 mmol/L Low 98-107 [facility] Comment on above: Performed By: #### L [id number] ####[facility] [place] [address] CO2 [Moles/Vol] 38 mmol/L High 21-31 [facility] Comment on above: Performed By: #### L [id number] ####[facility] [place] [address] Creatinine [Mass/Vol] 0.96 mg/dL Normal 0.70-1.30 [facility] Comment on above: Performed By: #### L [id number] ####[facility] ([facility] [place] [address] GLOMERULAR FILTRATION RATE ML/MIN/1.73 SQ M.PREDICTED 87.7 mL/min/1.73m*2 Normal >60.0 [facility] Comment on above: Result Comment: [facility]???s estimated glomerular filtration rate (eGFR) [...] of individuals. Performed By: #### L [id number] ####[facility] ([facility] [place] [address] Glucose [Mass/Vol] 182 mg/dL High 70-100 [facility] Comment on above: Performed By: #### L [id number] ####[facility] ([facility] [place] [address] Potassium [Moles/Vol] 4.1 mmol/L Normal 3.5-5.1 [facility] Comment on above: Performed By: #### L [id number] ####[facility] ([facility] [address] Sodium [Moles/Vol] 134 mmol/L Low 136-145 [facility] Comment on above: Performed By: #### L [id number] ####[facility] ([facility] [address] Urea nitrogen [Mass/Vol] 23 mg/dL Normal 7-25 [facility] Comment on above: Performed By: #### L [id number] ####[facility] ([facility] [address] UREA NITROGEN/CREATININE (MASS RATIO) IN SER/PLAS 24.0 Normal [facility] Comment on above: Performed By: #### L [id number] ####[facility] ([facility] [address] CBC WITH AUTO DIFFERENTIALon 08-29-2024 Basophils (Bld) [#/Vol] 0.09 10*3/uL Normal 0.00-0.20 [facility] Comment on above: Performed By: #### L [id number] ####[facility] ([facility] [address] Basophils/100 WBC (Bld) 1.0 % Normal 0.0-1.0 [facility] Comment on above: Performed By: #### L [id number] ####[facility] ([facility])[address] [place] [address] Eosinophils (Bld) [#/Vol] 0.48 10*3/uL Normal 0.00-0.50 [facility] Comment on above: Performed By: #### L [id number] ####[facility] ([facility])[address] [place] [address] Eosinophils/100 WBC (Bld) 5.3 % Normal 0.0-6.0 [facility] Comment on above: Performed By: #### L [id number] ####[facility] ([facility])[address] [place] [address] Erythrocyte distribution width (RBC) [Ratio] 15.0 % Normal 11.5-15.0 [facility] Comment on above: Performed By: #### L [id number] ####[facility] ([facility])[address] [place] [address] ERYTHROCYTE MEAN CORPUSCULAR HEMOGLOBIN CONCENTRATION (G/DL) BY AUTOMATED 30.5 g/dL Low 32.0-35.0 [facility] Comment on above: Performed By: #### L [id number] ####[facility] ([facility])[address] [place] [address] Hematocrit (Bld) [Volume fraction] 51.2 % Normal 39.0-55.0 [facility] Comment on above: Performed By: #### L [id number] ####[facility] ([facility])[address] [place] [address] Hemoglobin (Bld) [Mass/Vol] 15.6 g/dL Normal 13.0-17.0 [facility] Comment on above: Performed By: #### L [id number] ####[facility] ([facility])[address] [place] [address] Immature granulocytes (Bld) [#/Vol] 0.07 10*3/uL Normal 0.00-0.20 [facility] Comment on above: Performed By: #### L [id number] ####[facility] [place] [address] Immature granulocytes/100 WBC (Bld) 0.8 % Normal 0.0-1.0 [facility] Comment on above: Performed By: #### L [id number] ####[facility] ([facility] [place] [address] Lymphocytes (Bld) [#/Vol] 1.41 10*3/uL Normal 1.20-4.00 [facility] Comment on above: Performed By: #### L [id number] ####[facility] ([facility] [place] [address] Lymphocytes/100 WBC (Bld) 15.7 % Low 20.0-45.0 [facility] Comment on above: Performed By: #### L [id number] ####[facility] ([facility] [place] [address] MCH (RBC) [Entitic mass] 29.0 pg Normal 27.0-33.0 [facility] Comment on above: Performed By: #### L [id number] ####[facility] ([facility] [place] [address] MCV (RBC) [Entitic vol] 95.2 fL Normal 82.0-98.0 [facility] Comment on above: Performed By: #### L [id number] ####[facility] ([facility] [place] [address] Monocytes (Bld) [#/Vol] 0.82 10*3/uL Normal 0.10-1.00 [facility] Comment on above: Performed By: #### L [id number] ####[facility] ([facility])[address] [place] [address] Monocytes/100 WBC (Bld) 9.1 % Normal 5.0-12.0 [facility] Comment on above: Performed By: #### L [id number] ####[facility] ([facility] [place] [address] Neutrophils (Bld) [#/Vol] 6.11 10*3/uL Normal 1.60-7.60 [facility] Comment on above: Performed By: #### L [id number] ####[facility] ([facility] [address] Neutrophils/100 WBC (Bld) 68.1 % Normal 40.0-72.0 [facility] Comment on above: Performed By: #### L [id number] ####[facility] ([facility] [place] [address] NRBC (PER 100 WBCS) BY AUTOMATED COUNT 0.0 % Normal 0 [facility] Comment on above: Performed By: #### L [id number] ####[facility] ([facility] [place] [address] PLATELETS (10*3/UL) IN BLOOD AUTOMATED COUNT 262 10*3/uL Normal 150-400 [facility] Comment on above: Performed By: #### L [id number] ####[facility] ([facility] [place] [address] RBC (Bld) [#/Vol] 5.38 10*6/uL Normal 4.20-5.70 [facility] Comment on above: Performed By: #### L [id number] ####[facility] ([facility] [place] [address] WBC (Bld) [#/Vol] 8.98 10*3/uL Normal 4.00-10.60 [facility] Comment on above: Performed By: #### L [id number] ####[facility] ([facility] [place] [address] MAGNESIUMon 08-29-2024 Magnesium [Mass/Vol] 1.7 mg/dL Low 1.9-2.7 [facility] Comment on above: Performed By: #### L [id number] ####[facility] ([facility] [place] [address] POCT GLUCOSE METER UNSOLICIT ED RESULTSon 08-29-2024 Glucose [Mass/Vol] 284 mg/dL High 70-105 [facility] Comment on above: Order Comment: Waive d Testing in the ED is performed under the ED CLIA certificate #[id number]. Result Comment: sbel air Performed By: #### L [id number] ####[facility] ([facility] [place] [address] Glucose [Mass/Vol] 259 mg/dL High 70-105 [facility] Comment on above: Order Comment: Waive d Testing in the ED is performed under the ED CLIA certificate #[id number]. Result Comment: aall en70 Performed By: #### L [id number] ####[facility] ([facility] [place] [address] Glucose [Mass/Vol] 301 mg/dL High 70-105 [facility] Comment on above: Order Comment: Waive d Testing in the ED is performed under the ED CLIA certificate #[id number]. Result Comment: aall [email or web address] Performed By: #### L [id number] ####[facility] ([facility] [place] [address] Glucose [Mass/Vol] 166 mg/dL High 70-105 [facility] Comment on above: Order Comment: Waive d Testing in the ED is performed under the ED CLIA certificate #[id number]. Result Comment: aall [email or web address] Performed By: #### L [id number] ####[facility] ([facility] [place] [address] BASIC METABOLIC PANELon Anion gap [Moles/Vol] 8 mmol/L Normal 7-20 [facility] Comment on above: Performed By: #### L [id number] ####[facility] ([facility] [place] [address] Calcium [Mass/Vol] 9.8 mg/dL Normal 8.6-10.3 [facility] Comment on above: Performed By: #### L [id number] ####[facility] ([facility] [place] [address] Chloride [Moles/Vol] 96 mmol/L Low 98-107 [facility] Comment on above: Performed By: #### L [id number] ####[facility] ([facility] [place] [address] CO2 [Moles/Vol] 37 mmol/L High 21-31 [facility] Comment on above: Performed By: #### L [id number] ####[facility] ([facility] [place] [address] Creatinine [Mass/Vol] 0.82 mg/dL Normal 0.70-1.30 [facility] Comment on above: Performed By: #### L [id number] ####[facility] ([facility] [place] [address] GLOMERULAR FILTRATION RATE ML/MIN/1.73 SQ M.PREDICTED 97.5 mL/min/1.73m*2 Normal >60.0 [facility] Comment on above: Result Comment: [facility]???s estimated glomerular filtration rate (eGFR) [...] of individuals. Performed By: #### L [id number] ####[facility] ([facility] [place] [address] Glucose [Mass/Vol] 183 mg/dL High 70-100 [facility] Comment on above: Performed By: #### L [id number] ####[facility] ([facility])[address] [place] [address] Potassium [Moles/Vol] 3.7 mmol/L Normal 3.5-5.1 [facility] Comment on above: Performed By: #### L [id number] ####[facility] [place] [address] Sodium [Moles/Vol] 137 mmol/L Normal 136-145 [facility] Comment on above: Performed By: #### L [id number] ####[facility] ([facility] [place] [address] Urea nitrogen [Mass/Vol] 17 mg/dL Normal 7-25 [facility] Comment on above: Performed By: #### L [id number] ####[facility] ([facility] [place] [address] UREA NITROGEN/CREATININE (MASS RATIO) IN SER/PLAS 20.7 Normal [facility] Comment on above: Performed By: #### L [id number] ####[facility] [place] [address] CBC WITH AUTO DIFFERENTIALon 08-28-2024 Basophils (Bld) [#/Vol] 0.09 10*3/uL Normal 0.00-0.20 [facility] Comment on above: Performed By: #### L [id number] ####[facility] ([facility] [place] [address] Basophils/100 WBC (Bld) 0.9 % Normal 0.0-1.0 [facility] Comment on above: Performed By: #### L [id number] ####[facility] ([facility])[address] [place] [address] Eosinophils (Bld) [#/Vol] 0.40 10*3/uL Normal 0.00-0.50 [facility] Comment on above: Performed By: #### L [id number] ####[facility] ([facility])[address] [place] [address] Eosinophils/100 WBC (Bld) 4.2 % Normal 0.0-6.0 [facility] Comment on above: Performed By: #### L [id number] ####[facility] ([facility])[address] [place] [address] Erythrocyte distribution width (RBC) [Ratio] 14.8 % Normal 11.5-15.0 [facility] Comment on above: Performed By: #### L [id number] ####[facility] [place] [address] ERYTHROCYTE MEAN CORPUSCULAR HEMOGLOBIN CONCENTRATION (G/DL) BY AUTOMATED 30.3 g/dL Low 32.0-35.0 [facility] Comment on above: Performed By: #### L [id number] ####[facility] ([facility])[address] [place] [address] Hematocrit (Bld) [Volume fraction] 50.9 % Normal 39.0-55.0 [facility] Comment on above: Performed By: #### L [id number] ####[facility] ([facility])[address] [place] [address] Hemoglobin (Bld) [Mass/Vol] 15.4 g/dL Normal 13.0-17.0 [facility] Comment on above: Performed By: #### L [id number] ####[facility] ([facility])[address] [place] [address] Immature granulocytes (Bld) [#/Vol] 0.06 10*3/uL Normal 0.00-0.20 [facility] Comment on above: Performed By: #### L [id number] ####[facility] ([facility])[address] [place] [address] Immature granulocytes/100 WBC (Bld) 0.6 % Normal 0.0-1.0 [facility] Comment on above: Performed By: #### L [id number] ####[facility] ([facility])[address] [place] [address] Lymphocytes (Bld) [#/Vol] 1.68 10*3/uL Normal 1.20-4.00 [facility] Comment on above: Performed By: #### L [id number] ####[facility] ([facility])[address] [place] [address] Lymphocytes/100 WBC (Bld) 17.6 % Low 20.0-45.0 [facility] Comment on above: Performed By: #### L [id number] ####[facility] [place] [address] MCH (RBC) [Entitic mass] 29.2 pg Normal 27.0-33.0 [facility] Comment on above: Performed By: #### L [id number] ####[facility] ([facility] [place] [address] MCV (RBC) [Entitic vol] 96.6 fL Normal 82.0-98.0 [facility] Comment on above: Performed By: #### L [id number] ####[facility] ([facility])[address] [place] [address] Monocytes (Bld) [#/Vol] 0.99 10*3/uL Normal 0.10-1.00 [facility] Comment on above: Performed By: #### L [id number] ####[facility] ([facility])[address] [place] [address] Monocytes/100 WBC (Bld) 10.4 % Normal 5.0-12.0 [facility] Comment on above: Performed By: #### L [id number] ####[facility] ([facility])[address] [place] [address] Neutrophils (Bld) [#/Vol] 6.33 10*3/uL Normal 1.60-7.60 [facility] Comment on above: Performed By: #### L [id number] ####[facility] ([facility])[address] [place] [address] Neutrophils/100 WBC (Bld) 66.3 % Normal 40.0-72.0 [facility] Comment on above: Performed By: #### L [id number] ####[facility] ([facility])[address] [place] [address] NRBC (PER 100 WBCS) BY AUTOMATED COUNT 0.0 % Normal 0 [facility] Comment on above: Performed By: #### L [id number] ####[facility] [place] [address] PLATELETS (10*3/UL) IN BLOOD AUTOMATED COUNT 252 10*3/uL Normal 150-400 [facility] Comment on above: Performed By: #### L [id number] ####[facility] ([facility] [place] [address] RBC (Bld) [#/Vol] 5.27 10*6/uL Normal 4.20-5.70 [facility] Comment on above: Performed By: #### L [id number] ####[facility] ([facility] [place] [address] WBC (Bld) [#/Vol] 9.55 10*3/uL Normal 4.00-10.60 [facility] Comment on above: Performed By: #### L [id number] ####[facility] ([facility] [place] [address] MAGNESIUMon 08-28-2024 Magnesium [Mass/Vol] 1.8 mg/dL Low 1.9-2.7 [facility] Comment on above: Performed By: #### L [id number] ####[facility] [place] [address] NURSNOTEon 08-28-2024 NURSNOTE Normal [facility] POCT GLUCOSE METER UNSOLICIT ED RESULTSon 08-28-2024 Glucose [Mass/Vol] 258 mg/dL High 70-105 [facility] Comment on above: Order Comment: Waive d Testing in the ED is performed under the ED CLIA certificate #[id number]. Result Comment: [email or web address] [email or web address] Performed By: #### L [id number] ####[facility] ([facility])[address] [place] [address] Glucose [Mass/Vol] 177 mg/dL High 70-105 [facility] Comment on above: Order Comment: Waive d Testing in the ED is performed under the ED CLIA certificate #[id number]. Result Comment: aall en70 Performed By: #### L [id number] ####[facility] ([facility] [place] [address] Glucose [Mass/Vol] 242 mg/dL High 70-105 [facility] Comment on above: Order Comment: Waive d Testing in the ED is performed under the ED CLIA certificate #[id number]. Result Comment: aall en70 Performed By: #### L [id number] ####[facility] ([facility] [place] [address] Glucose [Mass/Vol] 200 mg/dL High 70-105 [facility] Comment on above: Order Comment: Waive d Testing in the ED is performed under the ED CLIA certificate #[id number]. Result Comment: aall en70 Performed By: #### L [id number] ####[facility] ([facility] [place] [address] 30on 08-27-2024 30 Normal [facility] BASIC METABOLIC PANELon 0 Anion gap [Moles/Vol] 6 mmol/L Low 7-20 [facility] Comment on above: Performed By: #### L [id number] ####[facility] [place] [address] Calcium [Mass/Vol] 9.8 mg/dL Normal 8.6-10.3 [facility] Comment on above: Performed By: #### L [id number] ####[facility] [place] [address] Chloride [Moles/Vol] 97 mmol/L Low 98-107 [facility] Comment on above: Performed By: #### L [id number] ####[facility] [place] [address] CO2 [Moles/Vol] 41 mmol/L Critically high 21-31 [facility] Comment on above: Performed By: #### L [id number] ####[facility] ([facility] ([place] [place] [address] Creatinine [Mass/Vol] 0.81 mg/dL Normal 0.70-1.30 [facility] Comment on above: Performed By: #### L [id number] ####[facility] ([facility] [place] [address] GLOMERULAR FILTRATION RATE ML/MIN/1.73 SQ M.PREDICTED 97.8 mL/min/1.73m*2 Normal >60.0 [facility] Comment on above: Result Comment: [facility]???s estimated glomerular filtration rate (eGFR) [...] of individuals. Performed By: #### L [id number] ####[facility] [place] [address] Glucose [Mass/Vol] 187 mg/dL High 70-100 [facility] Comment on above: Performed By: #### L [id number] ####[facility] [place] [address] Potassium [Moles/Vol] 3.5 mmol/L Normal 3.5-5.1 [facility] Comment on above: Performed By: #### L [id number] ####[facility] ([facility] [place] [address] Sodium [Moles/Vol] 140 mmol/L Normal 136-145 [facility] Comment on above: Performed By: #### L [id number] ####[facility] ([facility] [place] [address] Urea nitrogen [Mass/Vol] 16 mg/dL Normal 7-25 [facility] Comment on above: Performed By: #### L [id number] ####[facility] ([facility] [place] [address] UREA NITROGEN/CREATININE (MASS RATIO) IN SER/PLAS 19.8 Normal [facility] Comment on above: Performed By: #### L [id number] ####[facility] ([facility] [place] [address] CBC WITH AUTO DIFFERENTIALon 08-27-2024 Basophils (Bld) [#/Vol] 0.06 10*3/uL Normal 0.00-0.20 [facility] Comment on above: Performed By: #### L [id number] ####[facility] ([facility] [place] [address] Basophils/100 WBC (Bld) 0.7 % Normal 0.0-1.0 [facility] Comment on above: Performed By: #### L [id number] ####[facility] ([facility] [place] [address] Eosinophils (Bld) [#/Vol] 0.38 10*3/uL Normal 0.00-0.50 [facility] Comment on above: Performed By: #### L [id number] ####[facility] ([facility] [place] [address] Eosinophils/100 WBC (Bld) 4.7 % Normal 0.0-6.0 [facility] Comment on above: Performed By: #### L [id number] ####[facility] ([facility] [place] [address] Erythrocyte distribution width (RBC) [Ratio] 14.6 % Normal 11.5-15.0 [facility] Comment on above: Performed By: #### L [id number] ####[facility] ([facility])[address] [place] [address] ERYTHROCYTE MEAN CORPUSCULAR HEMOGLOBIN CONCENTRATION (G/DL) BY AUTOMATED 29.7 g/dL Low 32.0-35.0 [facility] Comment on above: Performed By: #### L [id number] ####[facility] ([facility])[address] [place] [address] Hematocrit (Bld) [Volume fraction] 49.5 % Normal 39.0-55.0 [facility] Comment on above: Performed By: #### L [id number] ####[facility] ([facility])[address] [place] [address] Hemoglobin (Bld) [Mass/Vol] 14.7 g/dL Normal 13.0-17.0 [facility] Comment on above: Performed By: #### L [id number] ####[facility] ([facility])[address] [place] [address] Immature granulocytes (Bld) [#/Vol] 0.04 10*3/uL Normal 0.00-0.20 [facility] Comment on above: Performed By: #### L [id number] ####[facility] ([facility])[address] [place] [address] Immature granulocytes/100 WBC (Bld) 0.5 % Normal 0.0-1.0 [facility] Comment on above: Performed By: #### L [id number] ####[facility] ([facility])[address] [place] [address] Lymphocytes (Bld) [#/Vol] 1.42 10*3/uL Normal 1.20-4.00 [facility] Comment on above: Performed By: #### L [id number] ####[facility] ([facility])[address] [place] [address] Lymphocytes/100 WBC (Bld) 17.7 % Low 20.0-45.0 [facility] Comment on above: Performed By: #### L [id number] ####[facility] ([facility])[address] [place] [address] MCH (RBC) [Entitic mass] 28.9 pg Normal 27.0-33.0 [facility] Comment on above: Performed By: #### L [id number] ####[facility] ([facility])[address] [place] [address] MCV (RBC) [Entitic vol] 97.4 fL Normal 82.0-98.0 [facility] Comment on above: Performed By: #### L [id number] ####[facility] ([facility])[address] [place] [address] Monocytes (Bld) [#/Vol] 0.92 10*3/uL Normal 0.10-1.00 [facility] Comment on above: Performed By: #### L [id number] ####[facility] ([facility] [place] [address] Monocytes/100 WBC (Bld) 11.5 % Normal 5.0-12.0 [facility] Comment on above: Performed By: #### L [id number] ####[facility] ([facility])[address] [place] [address] Neutrophils (Bld) [#/Vol] 5.19 10*3/uL Normal 1.60-7.60 [facility] Comment on above: Performed By: #### L [id number] ####[facility] ([facility] [place] [address] Neutrophils/100 WBC (Bld) 64.9 % Normal 40.0-72.0 [facility] Comment on above: Performed By: #### L [id number] ####[facility] ([facility])[address] [place] [address] NRBC (PER 100 WBCS) BY AUTOMATED COUNT 0.0 % Normal 0 [facility] Comment on above: Performed By: #### L [id number] ####[facility] ([facility])[address] [place] [address] PLATELETS (10*3/UL) IN BLOOD AUTOMATED COUNT 209 10*3/uL Normal 150-400 [facility] Comment on above: Performed By: #### L [id number] ####[facility] ([facility] [place] [address] RBC (Bld) [#/Vol] 5.08 10*6/uL Normal 4.20-5.70 [facility] Comment on above: Performed By: #### L [id number] ####[facility] ([facility] [place] [address] WBC (Bld) [#/Vol] 8.01 10*3/uL Normal 4.00-10.60 [facility] Comment on above: Performed By: #### L [id number] ####[facility] ([facility] [place] [address] MAGNESIUMon 08-27-2024 Magnesium [Mass/Vol] 1.6 mg/dL Low 1.9-2.7 [facility] Comment on above: Performed By: #### L [id number] ####[facility] ([facility] [place] [address] POCT GLUCOSE METER UNSOLICIT ED RESULTSon 08-27-2024 Glucose [Mass/Vol] 144 mg/dL High 70-105 [facility] Comment on above: Order Comment: Waive d Testing in the ED is performed under the ED CLIA certificate #[id number]. Result Comment: [email or web address] kol Performed By: #### L [id number] ####[facility] ([facility] [place] [address] Glucose [Mass/Vol] 204 mg/dL High 70-105 [facility] Comment on above: Order Comment: Waive d Testing in the ED is performed under the ED CLIA certificate #[id number]. Result Comment: [email or web address] [email or web address] Performed By: #### L [id number] ####[facility] ([facility] [place] [address] Glucose [Mass/Vol] 230 mg/dL High 70-105 [facility] Comment on above: Order Comment: Waive d Testing in the ED is performed under the ED CLIA certificate #[id number]. Result Comment: [email or web address] Performed By: #### L [id number] ####[facility] ([facility])[address] [place] [address] Glucose [Mass/Vol] 174 mg/dL High 70-105 [facility] Comment on above: Order Comment: Waive d Testing in the ED is performed under the ED CLIA certificate #[id number]. Result Comment: [email or web address] [email or web address] Performed By: #### L [id number] ####[facility] ([facility] [place] [address] BASIC METABOLIC PANELon 02-0 Anion gap [Moles/Vol] 9 mmol/L Normal 7-20 [facility] Comment on above: Performed By: #### L [id number] ####[facility] ([facility] [place] [address] Calcium [Mass/Vol] 9.4 mg/dL Normal 8.6-10.3 [facility] Comment on above: Performed By: #### L [id number] ####[facility] ([facility])[address] [place] [address] Chloride [Moles/Vol] 100 mmol/L Normal 98-107 [facility] Comment on above: Performed By: #### L [id number] ####[facility] ([facility])[address] [place] [address] CO2 [Moles/Vol] 36 mmol/L High 21-31 [facility] Comment on above: Performed By: #### L [id number] ####[facility] ([facility])[address] [place] [address] Creatinine [Mass/Vol] 0.78 mg/dL Normal 0.70-1.30 [facility] Comment on above: Performed By: #### L [id number] ####[facility] ([facility] [place] [address] GLOMERULAR FILTRATION RATE ML/MIN/1.73 SQ M.PREDICTED 99.0 mL/min/1.73m*2 Normal >60.0 [facility] Comment on above: Result Comment: [facility]???s estimated glomerular filtration rate (eGFR) [...] of individuals. Performed By: #### L [id number] ####[facility] ([facility] [place] [address] Glucose [Mass/Vol] 156 mg/dL High 70-100 [facility] Comment on above: Performed By: #### L [id number] ####[facility] ([facility] [place] [address] Potassium [Moles/Vol] 3.5 mmol/L Normal 3.5-5.1 [facility] Comment on above: Performed By: #### L [id number] ####[facility] ([facility] [place] [address] Sodium [Moles/Vol] 141 mmol/L Normal 136-145 [facility] Comment on above: Performed By: #### L [id number] ####[facility] ([facility])[address] [place] [address] Urea nitrogen [Mass/Vol] 17 mg/dL Normal 7-25 [facility] Comment on above: Performed By: #### L [id number] ####[facility] ([facility] [place] [address] UREA NITROGEN/CREATININE (MASS RATIO) IN SER/PLAS 21.8 Normal [facility] Comment on above: Performed By: #### L [id number] ####[facility] ([facility])[address] [place] [address] CBC WITH AUTO DIFFERENTIALon 08-26-2024 Basophils (Bld) [#/Vol] 0.06 10*3/uL Normal 0.00-0.20 [facility] Comment on above: Performed By: #### L [id number] ####[facility] ([facility] [place] [address] Basophils/100 WBC (Bld) 0.8 % Normal 0.0-1.0 [facility] Comment on above: Performed By: #### L [id number] ####[facility] ([facility] [place] [address] Eosinophils (Bld) [#/Vol] 0.39 10*3/uL Normal 0.00-0.50 [facility] Comment on above: Performed By: #### L [id number] ####[facility] ([facility] [place] [address] Eosinophils/100 WBC (Bld) 5.4 % Normal 0.0-6.0 [facility] Comment on above: Performed By: #### L [id number] ####[facility] ([facility] [place] [address] Erythrocyte distribution width (RBC) [Ratio] 14.7 % Normal 11.5-15.0 [facility] Comment on above: Performed By: #### L [id number] ####[facility] ([facility] [place] [address] ERYTHROCYTE MEAN CORPUSCULAR HEMOGLOBIN CONCENTRATION (G/DL) BY AUTOMATED 30.4 g/dL Low 32.0-35.0 [facility] Comment on above: Performed By: #### L [id number] ####[facility] ([facility])[address] [place] [address] Hematocrit (Bld) [Volume fraction] 49.0 % Normal 39.0-55.0 [facility] Comment on above: Performed By: #### L [id number] ####[facility] ([facility])[address] [place] [address] Hemoglobin (Bld) [Mass/Vol] 14.9 g/dL Normal 13.0-17.0 [facility] Comment on above: Performed By: #### L [id number] ####[facility] ([facility] [place] [address] Immature granulocytes (Bld) [#/Vol] 0.03 10*3/uL Normal 0.00-0.20 [facility] Comment on above: Performed By: #### L [id number] ####[facility] ([facility] [place] [address] Immature granulocytes/100 WBC (Bld) 0.4 % Normal 0.0-1.0 [facility] Comment on above: Performed By: #### L [id number] ####[facility] ([facility] [place] [address] Lymphocytes (Bld) [#/Vol] 1.21 10*3/uL Normal 1.20-4.00 [facility] Comment on above: Performed By: #### L [id number] ####[facility] ([facility])[address] [place] [address] Lymphocytes/100 WBC (Bld) 16.7 % Low 20.0-45.0 [facility] Comment on above: Performed By: #### L [id number] ####[facility] ([facility])[address] [place] [address] MCH (RBC) [Entitic mass] 29.2 pg Normal 27.0-33.0 [facility] Comment on above: Performed By: #### L [id number] ####[facility] ([facility])[address] [place] [address] MCV (RBC) [Entitic vol] 96.1 fL Normal 82.0-98.0 [facility] Comment on above: Performed By: #### L [id number] ####[facility] ([facility])[address] [place] [address] Monocytes (Bld) [#/Vol] 0.86 10*3/uL Normal 0.10-1.00 [facility] Comment on above: Performed By: #### L [id number] ####[facility] ([facility])[address] [place] [address] Monocytes/100 WBC (Bld) 11.9 % Normal 5.0-12.0 [facility] Comment on above: Performed By: #### L [id number] ####[facility] ([facility])[address] [place] [address] Neutrophils (Bld) [#/Vol] 4.70 10*3/uL Normal 1.60-7.60 [facility] Comment on above: Performed By: #### L [id number] ####[facility] ([facility])[address] [place] [address] Neutrophils/100 WBC (Bld) 64.8 % Normal 40.0-72.0 [facility] Comment on above: Performed By: #### L [id number] ####[facility] ([facility])[address] [place] [address] NRBC (PER 100 WBCS) BY AUTOMATED COUNT 0.0 % Normal 0 [facility] Comment on above: Performed By: #### L [id number] ####[facility] ([facility])[address] [place] [address] PLATELETS (10*3/UL) IN BLOOD AUTOMATED COUNT 208 10*3/uL Normal 150-400 [facility] Comment on above: Performed By: #### L [id number] ####[facility] ([facility])[address] [place] [address] RBC (Bld) [#/Vol] 5.10 10*6/uL Normal 4.20-5.70 [facility] Comment on above: Performed By: #### L [id number] ####[facility] ([facility])[address] [place] [address] WBC (Bld) [#/Vol] 7.25 10*3/uL Normal 4.00-10.60 [facility] Comment on above: Performed By: #### L [id number] ####[facility] ([facility] [place] [address] MAGNESIUMon 08-26-2024 Magnesium [Mass/Vol] 1.8 mg/dL Low 1.9-2.7 [facility] Comment on above: Performed By: #### L [id number] ####[facility] ([facility] [place] [address] POCT GLUCOSE METER UNSOLICIT ED RESULTSon 08-26-2024 Glucose [Mass/Vol] 246 mg/dL High 70-105 [facility] Comment on above: Order Comment: Waive d Testing in the ED is performed under the ED CLIA certificate #[id number]. Result Comment: [email or web address] Performed By: #### L [id number] ####[facility] ([facility] [place] [address] Glucose [Mass/Vol] 204 mg/dL High 70-105 [facility] Comment on above: Order Comment: Waive d Testing in the ED is performed under the ED CLIA certificate #[id number]. Result Comment: [email or web address] Performed By: #### L [id number] ####[facility] ([facility] [place] [address] Glucose [Mass/Vol] 219 mg/dL High 70-105 [facility] Comment on above: Order Comment: Waive d Testing in the ED is performed under the ED CLIA certificate #[id number]. Result Comment: [email or web address] Performed By: #### L [id number] ####[facility] ([facility] [place] [address] Glucose [Mass/Vol] 163 mg/dL High 70-105 [facility] Comment on above: Order Comment: Waive d Testing in the ED is performed under the ED CLIA certificate #[id number]. Result Comment: [email or web address] [email or web address] Performed By: #### L [id number] ####[facility] ([facility])[address] [place] [address] 30on 08-25-2024 30 Normal [facility] BASIC METABOLIC PANELon 02- Anion gap [Moles/Vol] 10 mmol/L Normal 7-20 [facility] Comment on above: Performed By: #### L [id number] ####[facility] ([facility])[address] [place] [address] Calcium [Mass/Vol] 9.5 mg/dL Normal 8.6-10.3 [facility] Comment on above: Performed By: #### L [id number] ####[facility] ([facility])[address] [place] [address] Chloride [Moles/Vol] 97 mmol/L Low 98-107 [facility] Comment on above: Performed By: #### L [id number] ####[facility] ([facility])[address] [place] [address] CO2 [Moles/Vol] 34 mmol/L High 21-31 [facility] Comment on above: Performed By: #### L [id number] ####[facility] ([facility])[address] [place] [address] Creatinine [Mass/Vol] 0.87 mg/dL Normal 0.70-1.30 [facility] Comment on above: Performed By: #### L [id number] ####[facility] ([facility])[address] [place] [address] GLOMERULAR FILTRATION RATE ML/MIN/1.73 SQ M.PREDICTED 95.8 mL/min/1.73m*2 Normal >60.0 [facility] Comment on above: Result Comment: [facility]???s estimated glomerular filtration rate (eGFR) [...] of individuals. Performed By: #### L [id number] ####[facility] ([facility] [place] [address] Glucose [Mass/Vol] 178 mg/dL High 70-100 [facility] Comment on above: Performed By: #### L [id number] ####[facility] ([facility] [place] [address] Potassium [Moles/Vol] 3.5 mmol/L Normal 3.5-5.1 [facility] Comment on above: Performed By: #### L [id number] ####[facility] ([facility] [place] [address] Sodium [Moles/Vol] 137 mmol/L Normal 136-145 [facility] Comment on above: Performed By: #### L [id number] ####[facility] ([facility] [address] Urea nitrogen [Mass/Vol] 20 mg/dL Normal 7-25 [facility] Comment on above: Performed By: #### L [id number] ####[facility] ([facility] [place] [address] UREA NITROGEN/CREATININE (MASS RATIO) IN SER/PLAS 23.0 Normal [facility] Comment on above: Performed By: #### L [id number] ####[facility] ([facility] [address] CBC WITH AUTO DIFFERENTIALon 08-25-2024 Basophils (Bld) [#/Vol] 0.04 10*3/uL Normal 0.00-0.20 [facility] Comment on above: Performed By: #### L [id number] ####[facility] ([facility] [address] Basophils/100 WBC (Bld) 0.6 % Normal 0.0-1.0 [facility] Comment on above: Performed By: #### L [id number] ####[facility] ([facility])[address] [place] [address] Eosinophils (Bld) [#/Vol] 0.22 10*3/uL Normal 0.00-0.50 [facility] Comment on above: Performed By: #### L [id number] ####[facility] ([facility])[address] [place] [address] Eosinophils/100 WBC (Bld) 3.1 % Normal 0.0-6.0 [facility] Comment on above: Performed By: #### L [id number] ####[facility] ([facility])[address] [place] [address] Erythrocyte distribution width (RBC) [Ratio] 14.6 % Normal 11.5-15.0 [facility] Comment on above: Performed By: #### L [id number] ####[facility] ([facility]AKER)[address] [place] [address] ERYTHROCYTE MEAN CORPUSCULAR HEMOGLOBIN CONCENTRATION (G/DL) BY AUTOMATED 30.6 g/dL Low 32.0-35.0 [facility] Comment on above: Performed By: #### L [id number] ####[facility] (BEAKER)[address] [place] [address] Hematocrit (Bld) [Volume fraction] 49.4 % Normal 39.0-55.0 [facility] Comment on above: Performed By: #### L [id number] ####[facility] (BEAKER)[address] [place] [address] Hemoglobin (Bld) [Mass/Vol] 15.1 g/dL Normal 13.0-17.0 [facility] Comment on above: Performed By: #### L [id number] ####[facility] (BEAKER)[address] [place] [address] Immature granulocytes (Bld) [#/Vol] 0.04 10*3/uL Normal 0.00-0.20 [facility] Comment on above: Performed By: #### L [id number] ####[facility] (BEAKER)[address] [place] [address] Immature granulocytes/100 WBC (Bld) 0.6 % Normal 0.0-1.0 [facility] Comment on above: Performed By: #### L [id number] ####[facility] [place] [address] Lymphocytes (Bld) [#/Vol] 1.08 10*3/uL Low 1.20-4.00 [facility] Comment on above: Performed By: #### L [id number] ####[facility] [place] [address] Lymphocytes/100 WBC (Bld) 15.1 % Low 20.0-45.0 [facility] Comment on above: Performed By: #### L [id number] ####[facility] (BEAKER)[address] [place] [address] MCH (RBC) [Entitic mass] 28.9 pg Normal 27.0-33.0 [facility] Comment on above: Performed By: #### L [id number] ####[facility] (BEAKER)[address] [place] [address] MCV (RBC) [Entitic vol] 94.6 fL Normal 82.0-98.0 [facility] Comment on above: Performed By: #### L [id number] ####[facility] [place] [address] Monocytes (Bld) [#/Vol] 0.94 10*3/uL Normal 0.10-1.00 [facility] Comment on above: Performed By: #### L [id number] ####[facility] (BEAKER)[address] [place] [address] Monocytes/100 WBC (Bld) 13.1 % High 5.0-12.0 U [facility] Comment on above: Performed By: #### L [id number] ####[facility] ([facility] [place] [address] Neutrophils (Bld) [#/Vol] 4.85 10*3/uL Normal 1.60-7.60 [facility] Comment on above: Performed By: #### L [id number] ####[facility] ([facility] [place] [address] Neutrophils/100 WBC (Bld) 67.5 % Normal 40.0-72.0 [facility] Comment on above: Performed By: #### L [id number] ####[facility] ([facility] [place] [address] NRBC (PER 100 WBCS) BY AUTOMATED COUNT 0.0 % Normal 0 [facility] Comment on above: Performed By: #### L [id number] ####[facility] ([facility] [place] [address] PLATELETS (10*3/UL) IN BLOOD AUTOMATED COUNT 200 10*3/uL Normal 150-400 [facility] Comment on above: Performed By: #### L [id number] ####[facility] ([facility] [address] RBC (Bld) [#/Vol] 5.22 10*6/uL Normal 4.20-5.70 [facility] Comment on above: Performed By: #### L [id number] ####[facility] ([facility] [address] WBC (Bld) [#/Vol] 7.17 10*3/uL Normal 4.00-10.60 [facility] Comment on above: Performed By: #### L [id number] ####[facility] ([facility] [place] [address] MAGNESIUMon 08-25-2024 Magnesium [Mass/Vol] 1.6 mg/dL Low 1.9-2.7 [facility] Comment on above: Performed By: #### L [id number] ####[facility] ([facility] [place] [address] POCT GLUCOSE METER UNSOLICIT ED RESULTSon 08-25-2024 Glucose [Mass/Vol] 154 mg/dL High 70-105 [facility] Comment on above: Order Comment: Waive d Testing in the ED is performed under the ED CLIA certificate #[id number]. Result Comment: [email or web address] Performed By: #### L [id number] ####[facility] ([facility] [place] [address] Glucose [Mass/Vol] 196 mg/dL High 70-105 [facility] Comment on above: Order Comment: Waive d Testing in the ED is performed under the ED CLIA certificate #[id number]. Result Comment: ndub ois3 Performed By: #### L [id number] ####[facility] ([facility] [place] [address] Glucose [Mass/Vol] 313 mg/dL High 70-105 [facility] Comment on above: Order Comment: Waive d Testing in the ED is performed under the ED CLIA certificate #[id number]. Result Comment: ndub ois3 Performed By: #### L [id number] ####[facility] ([facility] [place] [address] Glucose [Mass/Vol] 164 mg/dL High 70-105 [facility] Comment on above: Order Comment: Waive d Testing in the ED is performed under the ED CLIA certificate #[id number]. Result Comment: ndub ois3 Performed By: #### L [id number] ####[facility] ([facility] [place] [address] 30on 08-24-2024 30 Normal [facility] ANTI-XA (HEPARIN LEVEL)on HEPARIN UNFRACTIONATED (U/ML) IN PPP BY CHROMOGENIC METHOD 0.21 IU/mL Low 0.3-0.7 [facility] Comment on above: Result Comment: Tatyana roxaban and Apixaban will interfere with the anti Xa assay used to monitor UFH and LMWH. Performed By: #### L [id number] ####[facility] ([facility] [place] [address] B-TYPE NATRIURETIC PEPTIDEon 08-24-2024 Natriuretic peptide B (Bld) [Mass/Vol] 143 pg/mL High 0-100 [facility] Comment on above: Performed By: #### L [id number] ####[facility] ([facility] [place] [address] BASIC METABOLIC PANELon Anion gap [Moles/Vol] 11 mmol/L Normal 7-20 [facility] Comment on above: Performed By: #### L [id number] ####[facility] ([facility] [place] [address] Calcium [Mass/Vol] 9.7 mg/dL Normal 8.6-10.3 [facility] Comment on above: Performed By: #### L [id number] ####[facility] ([facility] [place] [address] Chloride [Moles/Vol] 98 mmol/L Normal 98-107 [facility] Comment on above: Performed By: #### L [id number] ####[facility] ([facility] [place] [address] CO2 [Moles/Vol] 33 mmol/L High 21-31 [facility] Comment on above: Performed By: #### L [id number] ####[facility] ([facility] [place] [address] Creatinine [Mass/Vol] 0.93 mg/dL Normal 0.70-1.30 [facility] Comment on above: Performed By: #### L [id number] ####[facility] ([facility] [place] [address] GLOMERULAR FILTRATION RATE ML/MIN/1.73 SQ M.PREDICTED 91.1 mL/min/1.73m*2 Normal >60.0 [facility] Comment on above: Result Comment: [facility]???s estimated glomerular filtration rate (eGFR) [...] of individuals. Performed By: #### L [id number] ####[facility] ([facility] [place] [address] Glucose [Mass/Vol] 166 mg/dL High 70-100 [facility] Comment on above: Performed By: #### L [id number] ####[facility] ([facility] [place] [address] Potassium [Moles/Vol] 3.8 mmol/L Normal 3.5-5.1 [facility] Comment on above: Performed By: #### L [id number] ####[facility] ([facility] [place] [address] Sodium [Moles/Vol] 138 mmol/L Normal 136-145 [facility] Comment on above: Performed By: #### L [id number] ####[facility] ([facility] [place] [address] Urea nitrogen [Mass/Vol] 23 mg/dL Normal 7-25 [facility] Comment on above: Performed By: #### L [id number] ####[facility] ([facility] [place] [address] UREA NITROGEN/CREATININE (MASS RATIO) IN SER/PLAS 24.7 Normal [facility] Comment on above: Performed By: #### L [id number] ####[facility] ([facility] [place] [address] Anion gap [Moles/Vol] 10 mmol/L Normal 7-20 [facility] Comment on above: Performed By: #### L [id number] ####[facility] ([facility] [place] [address] Calcium [Mass/Vol] 9.4 mg/dL Normal 8.6-10.3 [facility] Comment on above: Performed By: #### L [id number] ####[facility] ([facility] [place] [address] Chloride [Moles/Vol] 98 mmol/L Normal 98-107 [facility] Comment on above: Performed By: #### L [id number] ####[facility] ([facility] [place] [address] CO2 [Moles/Vol] 33 mmol/L High 21-31 [facility] Comment on above: Performed By: #### L [id number] ####[facility] ([facility] [place] [address] Creatinine [Mass/Vol] 0.88 mg/dL Normal 0.70-1.30 [facility] Comment on above: Performed By: #### L [id number] ####[facility] ([facility] [place] [address] GLOMERULAR FILTRATION RATE ML/MIN/1.73 SQ M.PREDICTED 95.4 mL/min/1.73m*2 Normal >60.0 [facility] Comment on above: Result Comment: [facility]???s estimated glomerular filtration rate (eGFR) [...] of individuals. Performed By: #### L [id number] ####[facility] ([facility] [place] [address] Glucose [Mass/Vol] 132 mg/dL High 70-100 [facility] Comment on above: Performed By: #### L [id number] ####[facility] ([facility] [place] [address] Potassium [Moles/Vol] 2.9 mmol/L Invalid Interpretation Code 3.5-5.1 [facility] Comment on above: Performed By: #### L [id number] ####[facility] ([facility] [place] [address] Sodium [Moles/Vol] 138 mmol/L Normal 136-145 [facility] Comment on above: Performed By: #### L [id number] ####[facility] ([facility] [place] [address] Urea nitrogen [Mass/Vol] 24 mg/dL Normal 7-25 [facility] Comment on above: Performed By: #### L [id number] ####[facility] ([facility] [place] [address] UREA NITROGEN/CREATININE (MASS RATIO) IN SER/PLAS 27.3 Normal [facility] Comment on above: Performed By: #### L [id number] ####[facility] ([facility] [place] [address] CBC WITH AUTO DIFFERENTIALon 08-24-2024 Basophils (Bld) [#/Vol] 0.06 10*3/uL Normal 0.00-0.20 [facility] Comment on above: Performed By: #### L [id number] ####[facility] ([facility] [address] Basophils/100 WBC (Bld) 0.8 % Normal 0.0-1.0 [facility] Comment on above: Performed By: #### L [id number] ####[facility] ([facility] [place] [address] Eosinophils (Bld) [#/Vol] 0.46 10*3/uL Normal 0.00-0.50 [facility] Comment on above: Performed By: #### L [id number] ####[facility] (BEAKER)[address] [place] [address] Eosinophils/100 WBC (Bld) 5.9 % Normal 0.0-6.0 [facility] Comment on above: Performed By: #### L [id number] ####[facility] ([facility] [place] [address] Erythrocyte distribution width (RBC) [Ratio] 14.7 % Normal 11.5-15.0 [facility] Comment on above: Performed By: #### L [id number] ####[facility] ([facility] [place] [address] ERYTHROCYTE MEAN CORPUSCULAR HEMOGLOBIN CONCENTRATION (G/DL) BY AUTOMATED 31.3 g/dL Low 32.0-35.0 [facility] Comment on above: Performed By: #### L [id number] ####[facility] ([facility] [place] [address] Hematocrit (Bld) [Volume fraction] 50.8 % Normal 39.0-55.0 [facility] Comment on above: Performed By: #### L [id number] ####[facility] ([facility] [place] [address] Hemoglobin (Bld) [Mass/Vol] 15.9 g/dL Normal 13.0-17.0 [facility] Comment on above: Performed By: #### L [id number] ####[facility] ([facility] [place] [address] Immature granulocytes (Bld) [#/Vol] 0.04 10*3/uL Normal 0.00-0.20 [facility] Comment on above: Performed By: #### L [id number] ####[facility] (BEAKER)[address] [place] [address] Immature granulocytes/100 WBC (Bld) 0.5 % Normal 0.0-1.0 [facility] Comment on above: Performed By: #### L [id number] ####[facility] ([facility]AKER)[address] [place] [address] Lymphocytes (Bld) [#/Vol] 1.23 10*3/uL Normal 1.20-4.00 [facility] Comment on above: Performed By: #### L [id number] ####[facility] ([facility] [place] [address] Lymphocytes/100 WBC (Bld) 15.8 % Low 20.0-45.0 [facility] Comment on above: Performed By: #### L [id number] ####[facility] ([facility] [place] [address] MCH (RBC) [Entitic mass] 29.1 pg Normal 27.0-33.0 [facility] Comment on above: Performed By: #### L [id number] ####[facility] ([facility] [place] [address] MCV (RBC) [Entitic vol] 92.9 fL Normal 82.0-98.0 [facility] Comment on above: Performed By: #### L [id number] ####[facility] [place] [address] Monocytes (Bld) [#/Vol] 0.96 10*3/uL Normal 0.10-1.00 [facility] Comment on above: Performed By: #### L [id number] ####[facility] (BEAKER)[address] [place] [address] Monocytes/100 WBC (Bld) 12.4 % High 5.0-12.0 [facility] Comment on above: Performed By: #### L [id number] ####[facility] (BEAKER)[address] [place] [address] Neutrophils (Bld) [#/Vol] 5.02 10*3/uL Normal 1.60-7.60 [facility] Comment on above: Performed By: #### L [id number] ####[facility] ([facility] [place] [address] Neutrophils/100 WBC (Bld) 64.6 % Normal 40.0-72.0 [facility] Comment on above: Performed By: #### L [id number] ####[facility] ([facility] [address] NRBC (PER 100 WBCS) BY AUTOMATED COUNT 0.0 % Normal 0 [facility] Comment on above: Performed By: #### L [id number] ####[facility] ([facility] [place] [address] PLATELETS (10*3/UL) IN BLOOD AUTOMATED COUNT 194 10*3/uL Normal 150-400 [facility] Comment on above: Performed By: #### L [id number] ####[facility] ([facility] [address] RBC (Bld) [#/Vol] 5.47 10*6/uL Normal 4.20-5.70 [facility] Comment on above: Performed By: #### L [id number] ####[facility] ([facility] [address] WBC (Bld) [#/Vol] 7.77 10*3/uL Normal 4.00-10.60 [facility] Comment on above: Performed By: #### L [id number] ####[facility] ([facility] [place] [address] CONSULTon 08-24-2024 CONSULT Normal [facility] CT HEAD WO IV CONTRASTon CT HEAD WO IV CONTRAST Invalid Interpretation Code [facility] CTA CHEST W IV CONTRASTon CTA CHEST W IV CONTRAST [facility]NES[facility] 08-24-2024 Magnesium [Mass/Vol] 1.7 mg/dL Low 1.9-2.7 [facility] Comment on above: Performed By: #### L [id number] ####[facility] ([facility] [place] [address] Magnesium [Mass/Vol] 1.4 mg/dL Low 1.9-2.7 [facility] Comment on above: Performed By: #### L [id number] ####[facility] ([facility] [place] [address] NURSNOTEon 08-24-2024 NURSNOTE Normal [facility] NURSNOTE Normal [facility] PHOSPHORUSon 08-24-2024 Magnesium [Mass/Vol] 3.4 mg/dL Normal 2.5-5.0 [facility] Comment on above: Performed By: #### L [id number] ####[facility] ([facility] [place] [address] POCT GLUCOSE METER UNSOLICIT ED RESULTSon 08-24-2024 Glucose [Mass/Vol] 182 mg/dL High 70-105 [facility] Comment on above: Order Comment: Waive d Testing in the ED is performed under the ED CLIA certificate #[id number]. Result Comment: droc kol Performed By: #### L [id number] ####[facility] ([facility] [place] [address] Glucose [Mass/Vol] 166 mg/dL High 70-105 [facility] Comment on above: Order Comment: Waive d Testing in the ED is performed under the ED CLIA certificate #[id number]. Result Comment: sbel cad Performed By: #### L [id number] ####[facility] ([facility] [place] [address] Glucose [Mass/Vol] 150 mg/dL High 70-105 [facility] Comment on above: Order Comment: Waive d Testing in the ED is performed under the ED CLIA certificate #[id number]. Result Comment: besc obe Performed By: #### L [id number] ####[facility] ([facility] [place] [address] Glucose [Mass/Vol] 136 mg/dL High 70-105 [facility] Comment on above: Order Comment: Waive d Testing in the ED is performed under the ED CLIA certificate #[id number]. Result Comment: swey [id number] Value Noted Performed By: #### L [id number] ####[facility] (BEAKER)[address] [place] [address] BASIC METABOLIC PANELon 02-0 Anion gap [Moles/Vol] 10 mmol/L Normal 7-20 [facility] Comment on above: Performed By: #### L [id number] ####[facility] (BEAKER)[address] [place] [address] Calcium [Mass/Vol] 9.8 mg/dL Normal 8.6-10.3 [facility] Comment on above: Performed By: #### L [id number] ####[facility] (BEAKER)[address] [place] [address] Chloride [Moles/Vol] 99 mmol/L Normal 98-107 [facility] Comment on above: Performed By: #### L [id number] ####[facility] (BEAKER)[address] [place] [address] CO2 [Moles/Vol] 33 mmol/L High 21-31 [facility] Comment on above: Performed By: #### L [id number] ####[facility] ([facility]AKER)[address] [place] [address] Creatinine [Mass/Vol] 0.94 mg/dL Normal 0.70-1.30 [facility] Comment on above: Performed By: #### L [id number] ####[facility] ([facility]ER)[address] [place] [address] GLOMERULAR FILTRATION RATE ML/MIN/1.73 SQ M.PREDICTED 90.0 mL/min/1.73m*2 Normal >60.0 [facility] Comment on above: Result Comment: [facility]???s estimated glomerular filtration rate (eGFR) [...] of individuals. Performed By: #### L [id number] ####[facility] ([facility] [place] [address] Glucose [Mass/Vol] 274 mg/dL High 70-100 [facility] Comment on above: Performed By: #### L [id number] ####[facility] ([facility] [place] [address] Potassium [Moles/Vol] 3.8 mmol/L Normal 3.5-5.1 [facility] Comment on above: Performed By: #### L [id number] ####[facility] ([facility] [place] [address] Sodium [Moles/Vol] 138 mmol/L Normal 136-145 [facility] Comment on above: Performed By: #### L [id number] ####[facility] ([facility] [place] [address] Urea nitrogen [Mass/Vol] 31 mg/dL High 7-25 [facility] Comment on above: Performed By: #### L [id number] ####[facility] ([facility] [place] [address] UREA NITROGEN/CREATININE (MASS RATIO) IN SER/PLAS 33.0 Normal [facility] Comment on above: Performed By: #### L [id number] ####[facility] ([facility] [place] [address] CBC WITH AUTO DIFFERENTIALon 08-23-2024 Basophils (Bld) [#/Vol] 0.06 10*3/uL Normal 0.00-0.20 [facility] Comment on above: Performed By: #### L [id number] ####[facility] (BEAKER)[address] [place] [address] Basophils/100 WBC (Bld) 0.9 % Normal 0.0-1.0 [facility] Comment on above: Performed By: #### L [id number] ####[facility] ([facility]AKER)[address] [place] [address] Eosinophils (Bld) [#/Vol] 0.34 10*3/uL Normal 0.00-0.50 [facility] Comment on above: Performed By: #### L [id number] ####[facility] ([facility]ER)[address] [place] [address] Eosinophils/100 WBC (Bld) 4.8 % Normal 0.0-6.0 [facility] Comment on above: Performed By: #### L [id number] ####[facility] ([facility]ER)[address] [place] [address] Erythrocyte distribution width (RBC) [Ratio] 14.7 % Normal 11.5-15.0 [facility] Comment on above: Performed By: #### L [id number] ####[facility] ([facility])[address] [place] [address] ERYTHROCYTE MEAN CORPUSCULAR HEMOGLOBIN CONCENTRATION (G/DL) BY AUTOMATED 31.8 g/dL Low 32.0-35.0 [facility] Comment on above: Performed By: #### L [id number] ####[facility] ([facility])[address] [place] [address] Hematocrit (Bld) [Volume fraction] 52.5 % Normal 39.0-55.0 [facility] Comment on above: Performed By: #### L [id number] ####[facility] ([facility])[address] [place] [address] Hemoglobin (Bld) [Mass/Vol] 16.7 g/dL Normal 13.0-17.0 [facility] Comment on above: Performed By: #### L [id number] ####[facility] ([facility])[address] [place] [address] Immature granulocytes (Bld) [#/Vol] 0.05 10*3/uL Normal 0.00-0.20 [facility] Comment on above: Performed By: #### L [id number] ####[facility] ([facility])[address] [place] [address] Immature granulocytes/100 WBC (Bld) 0.7 % Normal 0.0-1.0 [facility] Comment on above: Performed By: #### L [id number] ####[facility] ([facility])[address] [place] [address] Lymphocytes (Bld) [#/Vol] 1.15 10*3/uL Low 1.20-4.00 [facility] Comment on above: Performed By: #### L [id number] ####[facility] ([facility])[address] [place] [address] Lymphocytes/100 WBC (Bld) 16.4 % Low 20.0-45.0 [facility] Comment on above: Performed By: #### L [id number] ####[facility] ([facility])[address] [place] [address] MCH (RBC) [Entitic mass] 29.0 pg Normal 27.0-33.0 [facility] Comment on above: Performed By: #### L [id number] ####[facility] (BEAKER)[address] [place] [address] MCV (RBC) [Entitic vol] 91.1 fL Normal 82.0-98.0 U [facility] Comment on above: Performed By: #### L [id number] ####[facility] (BEAKER)[address] [place] [address] Monocytes (Bld) [#/Vol] 0.85 10*3/uL Normal 0.10-1.00 [facility] Comment on above: Performed By: #### L [id number] ####[facility] (BEAKER)[address] [place] [address] Monocytes/100 WBC (Bld) 12.1 % High 5.0-12.0 [facility] Comment on above: Performed By: #### L [id number] ####[facility] ([facility] [place] [place] [address] Neutrophils (Bld) [#/Vol] 4.58 10*3/uL Normal 1.60-7.60 [facility] Comment on above: Performed By: #### L [id number] ####[facility] ([facility] [place] [address] Neutrophils/100 WBC (Bld) 65.1 % Normal 40.0-72.0 [facility] Comment on above: Performed By: #### L [id number] ####[facility] ([facility] [place] [address] NRBC (PER 100 WBCS) BY AUTOMATED COUNT 0.0 % Normal 0 [facility] Comment on above: Performed By: #### L [id number] ####[facility] ([facility] [place], [place] [address] PLATELETS (10*3/UL) IN BLOOD AUTOMATED COUNT 190 10*3/uL Normal 150-400 [facility] Comment on above: Performed By: #### L [id number] ####[facility] ([facility] [place] [address] RBC (Bld) [#/Vol] 5.76 10*6/uL High 4.20-5.70 [facility] Comment on above: Performed By: #### L [id number] ####[facility] ([facility] [place] [address] WBC (Bld) [#/Vol] 7.03 10*3/uL Normal 4.00-10.60 [facility] Comment on above: Performed By: #### L [id number] ####[facility] [place] [address] CONSULTon 08-23-2024 CONSULT Normal [facility] LIPID PANELon 08-23-2024 CHOL/HDL 7.8 mg/dL Normal [facility] Comment on above: Performed By: #### L [id number] ####[facility] (BEAKER)[address] [place] [address] Cholesterol [Mass/Vol] 195 mg/dL Normal 120-200 [facility] Comment on above: Performed By: #### L [id number] ####[facility] [place] [address] Magnesium [Mass/Vol] 177 mg/dL High 40-149 [facility] Comment on above: Result Comment: TRIG LYCERIDE REFERENCE RANGE:20 YEARS AND OLDER CARDIOVASCULAR RISKLESS THAN 150 mg/dL LOW [id number] TO 199 mg/dL BORDERLINE [id number] mg/dL AND GREATER HIGH RISK Performed By: #### L [id number] ####[facility] [place] [address] Magnesium [Mass/Vol] 135 mg/dL Normal 0-160 [facility] Comment on above: Performed By: #### L [id number] ####[facility] (BEAKER)[address] [place] [address] Magnesium [Mass/Vol] 25 mg/dL Normal 23-92 [facility] Comment on above: Performed By: #### L [id number] ####[facility] (BEAKER)[address] [place] [address] NON HDL CHOL. (LDL+VLDL) 170 Normal [facility] Comment on above: Performed By: #### L [id number] ####[facility] (BEAKER)[address] [place] [address] TOTAL VLDL-C 35 mg/dL Normal 0-40 [facility] Comment on above: Performed By: #### L [id number] ####[facility] (BEAKER)[address] [place] [address] POCT GLUCOSE METER UNSOLICIT ED RESULTSon 08-23-2024 Glucose [Mass/Vol] 169 mg/dL High 70-105 [facility] Comment on above: Order Comment: Waive d Testing in the ED is performed under the ED CLIA certificate #[id number]. Result Comment: enoch tti Performed By: #### L [id number] ####[facility] [facility] [place] [address] Glucose [Mass/Vol] 183 mg/dL High 70-105 [facility] Comment on above: Order Comment: Waive d Testing in the ED is performed under the ED CLIA certificate #[id number]. Result Comment: ezab ors2 Performed By: #### L [id number] ####[facility] ([facility] [facility] [place] [address] Glucose [Mass/Vol] 283 mg/dL High 70-105 [facility] Comment on above: Order Comment: Waive d Testing in the ED is performed under the ED CLIA certificate #[id number]. Result Comment: ezab ors2 Performed By: #### L [id number] ####[facility] ([facility] [facility] [place] [address] Glucose [Mass/Vol] 258 mg/dL High 70-105 [facility] Comment on above: Order Comment: Waive d Testing in the ED is performed under the ED CLIA certificate #[id number]. Result Comment: tful ks2 Performed By: #### L [id number] ####[facility] ([facility] [facility] [place] [address] 30on 08-22-2024 30 Normal [facility] ANTI-XA (HEPARIN LEVEL)on HEPARIN UNFRACTIONATED (U/ML) IN PPP BY CHROMOGENIC METHOD 0.31 IU/mL Normal 0.3-0.7 [facility] Comment on above: Result Comment: Cupertino roxaban and Apixaban will interfere with the anti Xa assay used to monitor UFH and LMWH. Performed By: #### L [id number] ####[facility] ([facility] [place] [address] BASIC METABOLIC PANELon Anion gap [Moles/Vol] 10 mmol/L Normal 7-20 [facility] Comment on above: Performed By: #### L [id number] ####[facility] ([facility] [place] [address] Calcium [Mass/Vol] 9.6 mg/dL Normal 8.6-10.3 [facility] Comment on above: Performed By: #### L [id number] ####[facility] ([facility] [place] [address] Chloride [Moles/Vol] 102 mmol/L Normal 98-107 [facility] Comment on above: Performed By: #### L [id number] ####[facility] ([facility] [place] [address] CO2 [Moles/Vol] 32 mmol/L High 21-31 [facility] Comment on above: Performed By: #### L [id number] ####[facility] ([facility] [place] [address] Creatinine [Mass/Vol] 1.01 mg/dL Normal 0.70-1.30 [facility] Comment on above: Performed By: #### L [id number] ####[facility] ([facility] [place] [address] GLOMERULAR FILTRATION RATE ML/MIN/1.73 SQ M.PREDICTED 82.5 mL/min/1.73m*2 Normal >60.0 [facility] Comment on above: Result Comment: [facility]???s estimated glomerular filtration rate (eGFR) [...] of individuals. Performed By: #### L [id number] ####[facility] ([facility] [place] [address] Glucose [Mass/Vol] 263 mg/dL High 70-100 [facility] Comment on above: Performed By: #### L [id number] ####[facility] ([facility] [place] [address] Potassium [Moles/Vol] 3.7 mmol/L Normal 3.5-5.1 [facility] Comment on above: Performed By: #### L [id number] ####[facility] ([facility] [place] [address] Sodium [Moles/Vol] 140 mmol/L Normal 136-145 [facility] Comment on above: Performed By: #### L [id number] ####[facility] ([facility] [place] [address] Urea nitrogen [Mass/Vol] 33 mg/dL High 7-25 [facility] Comment on above: Performed By: #### L [id number] ####[facility] ([facility] [place] [address] UREA NITROGEN/CREATININE (MASS RATIO) IN SER/PLAS 32.7 Normal [facility] Comment on above: Performed By: #### L [id number] ####[facility] ([facility] [place] [address] CBC WITH AUTO DIFFERENTIALon 08-22-2024 Basophils (Bld) [#/Vol] 0.05 10*3/uL Normal 0.00-0.20 [facility] Comment on above: Performed By: #### L [id number] ####[facility] ([facility] [place] [address] Basophils/100 WBC (Bld) 0.5 % Normal 0.0-1.0 U [facility] Comment on above: Performed By: #### L [id number] ####[facility] ([facility] [place] [address] Eosinophils (Bld) [#/Vol] 0.36 10*3/uL Normal 0.00-0.50 [facility] Comment on above: Performed By: #### L [id number] ####[facility] (BEAKER)[address] [place] [address] Eosinophils/100 WBC (Bld) 3.9 % Normal 0.0-6.0 [facility] Comment on above: Performed By: #### L [id number] ####[facility] [place] [address] Erythrocyte distribution width (RBC) [Ratio] 14.7 % Normal 11.5-15.0 [facility] Comment on above: Performed By: #### L [id number] ####[facility] ([facility] [place] [address] ERYTHROCYTE MEAN CORPUSCULAR HEMOGLOBIN CONCENTRATION (G/DL) BY AUTOMATED 30.8 g/dL Low 32.0-35.0 [facility] Comment on above: Performed By: #### L [id number] ####[facility] [place] [address] Hematocrit (Bld) [Volume fraction] 52.9 % Normal 39.0-55.0 [facility] Comment on above: Performed By: #### L [id number] ####[facility] (BEAKER)[address] [place] [address] Hemoglobin (Bld) [Mass/Vol] 16.3 g/dL Normal 13.0-17.0 [facility] Comment on above: Performed By: #### L [id number] ####[facility] (BEAKER)[address] [place] [address] Immature granulocytes (Bld) [#/Vol] 0.07 10*3/uL Normal 0.00-0.20 [facility] Comment on above: Performed By: #### L [id number] ####[facility] (BEAKER)[address] [place] [address] Immature granulocytes/100 WBC (Bld) 0.7 % Normal 0.0-1.0 [facility] Comment on above: Performed By: #### L [id number] ####[facility] [place] [address] Lymphocytes (Bld) [#/Vol] 1.16 10*3/uL Low 1.20-4.00 [facility] Comment on above: Performed By: #### L [id number] ####[facility] ([facility] [place] [address] Lymphocytes/100 WBC (Bld) 12.4 % Low 20.0-45.0 [facility] Comment on above: Performed By: #### L [id number] ####[facility] ([facility] [place] [address] MCH (RBC) [Entitic mass] 28.8 pg Normal 27.0-33.0 [facility] Comment on above: Performed By: #### L [id number] ####[facility] ([facility] [place] [address] MCV (RBC) [Entitic vol] 93.5 fL Normal 82.0-98.0 [facility] Comment on above: Performed By: #### L [id number] ####[facility] ([facility] [place] [address] Monocytes (Bld) [#/Vol] 1.21 10*3/uL High 0.10-1.00 [facility] Comment on above: Performed By: #### L [id number] ####[facility] ([facility] [place] [address] Monocytes/100 WBC (Bld) 12.9 % High 5.0-12.0 [facility] Comment on above: Performed By: #### L [id number] ####[facility] ([facility] [place] [address] Neutrophils (Bld) [#/Vol] 6.50 10*3/uL Normal 1.60-7.60 [facility] Comment on above: Performed By: #### L [id number] ####[facility] ([facility] [place] [address] Neutrophils/100 WBC (Bld) 69.6 % Normal 40.0-72.0 [facility] Comment on above: Performed By: #### L [id number] ####[facility] ([facility] [place] [address] NRBC (PER 100 WBCS) BY AUTOMATED COUNT 0.0 % Normal 0 [facility] Comment on above: Performed By: #### L [id number] ####[facility] ([facility] [place] [address] PLATELETS (10*3/UL) IN BLOOD AUTOMATED COUNT 187 10*3/uL Normal 150-400 [facility] Comment on above: Performed By: #### L [id number] ####[facility] ([facility] [place] [address] RBC (Bld) [#/Vol] 5.66 10*6/uL Normal 4.20-5.70 [facility] Comment on above: Performed By: #### L [id number] ####[facility] ([facility] [place] [address] WBC (Bld) [#/Vol] 9.35 10*3/uL Normal 4.00-10.60 [facility] Comment on above: Performed By: #### L [id number] ####[facility] ([facility] [place] [address] POCT GLUCOSE METER UNSOLICIT ED RESULTSon 08-22-2024 Glucose [Mass/Vol] 256 mg/dL High 70-105 [facility] Comment on above: Order Comment: Waive d Testing in the ED is performed under the ED CLIA certificate #[id number]. Result Comment: ezab ors2 Performed By: #### L [id number] ####[facility] ([facility] [place] [address] Glucose [Mass/Vol] 277 mg/dL High 70-105 [facility] Comment on above: Order Comment: Waive d Testing in the ED is performed under the ED CLIA certificate #[id number]. Result Comment: ezab ors2 Performed By: #### L [id number] ####[facility] (BEAKER)[address] [place] [address] ANTI-XA (HEPARIN LEVEL)on HEPARIN UNFRACTIONATED (U/ML) IN PPP BY CHROMOGENIC METHOD 0.30 IU/mL Normal 0.3-0.7 [facility] Comment on above: Result Comment: [place] roxaban and Apixaban will interfere with the anti Xa assay used to monitor UFH and LMWH. Performed By: #### L [id number] ####[facility] (BEAKER)[address] [place] [address] ARTERIAL BLOOD GAS WITH CO-O XIMETRYon 08-21-2024 Base excess Calc (Bld) [Moles/Vol] 6.7 mmol/L High -2.0-3.0 [facility] Comment on above: Performed By: #### L [id number] ####[facility] [id number] [place] [address] [place] CARBOXYHEMOGLOBIN/HEMOGL OBIN TOTAL % IN BLOOD 2.0 % Normal 0.0-3.0 [facility] Comment on above: Performed By: #### L [id number] ####[facility] RESPIRATORY [id number] [place] [address] [place] CO2 (Bld) [Partial pressure] 43 mm[Hg] Normal 35-48 [facility] Comment on above: Performed By: #### L [id number] ####[facility] RESPIRATORY [id number] [place] [address] [place] DEOXYGENATED HEMOGLOBIN IN BLOOD 4.9 % Normal 1-5 [facility] Comment on above: Performed By: #### L [id number] ####[facility] RESPIRATORY [id number] [place] [address] [place] FIO2 50 % Normal [facility] Comment on above: Performed By: #### L [id number] ####[facility] RESPIRATORY [id number] [place] [address] [facility] HCO3 (Bld) [Moles/Vol] 31.3 mmol/L High 21.0-28.0 [facility] Comment on above: Performed By: #### L [id number] ####[facility] RESPIRATORY [id number] [place] [address] [facility] Hemoglobin (Bld) [Mass/Vol] 16.5 g/dL Normal 11.7-17.4 [facility] Comment on above: Performed By: #### L [id number] ####[facility] RESPIRATORY [id number] [place] [address] [place] METHEMOGLOBIN/100 IN BLOOD 0.7 % Normal 0.0-1.5 [facility] Comment on above: Performed By: #### L [id number] ####[facility] RESPIRATORY [id number] [place] [address] [facility] Oxygen (Bld) [Partial pressure] 68 mm[Hg] Low 83-100 [facility] Comment on above: Performed By: #### L [id number] ####[facility] RESPIRATORY [id number] [facility] [place] [address] [facility] OXYGEN SATURATION (%) IN ARTERIAL BLOOD 95.0 % Normal 94.0-98.0 [facility] Comment on above: Performed By: #### L [id number] ####[facility] RESPIRATORY [id number] [place] [address] [facility] OXYGENATED HEMOGLOBIN IN BLOOD 92.4 % Normal 90.0-95.0 [facility] Comment on above: Performed By: #### L [id number] ####[facility] RESPIRATORY [id number] [place] [facility] [place] [address] [place] pH (Bld) 7.47 [pH] High 7.35-7.45 [facility] Comment on above: Performed By: #### L [id number] ####[facility] RESPIRATORY [id number] [place] [address] [facility] SOURCE OF OXYGEN Bi-PAP Normal [facility] Comment on above: Performed By: #### L [id number] ####[facility] RESPIRATORY [id number] [place] [address] [facility] Base excess Calc (Bld) [Moles/Vol] 5.1 mmol/L High -2.0-3.0 [facility] Comment on above: Performed By: #### L [id number] ####[facility] RESPIRATORY [id number] [place] [address] [place] CARBOXYHEMOGLOBIN/HEMOGL OBIN TOTAL % IN BLOOD 1.9 % Normal 0.0-3.0 [facility] Comment on above: Performed By: #### L [id number] ####[facility] RESPIRATORY [id number] [place] [facility] [place] [address] [place] CO2 (Bld) [Partial pressure] 46 mm[Hg] Normal 35-48 [facility] Comment on above: Performed By: #### L [id number] ####[facility] RESPIRATORY [id number] [place] [facility] [address] [facility] DEOXYGENATED HEMOGLOBIN IN BLOOD 15.8 % Critically high 1-5 [facility] Comment on above: Performed By: #### L [id number] ####[facility] RESPIRATORY [id number] [place] [address] [place] HCO3 (Bld) [Moles/Vol] 30.5 mmol/L High 21.0-28.0 [facility] Comment on above: Performed By: #### L [id number] ####[facility] RESPIRATORY [id number] [facility] [facility] [place] [address] [place] Hemoglobin (Bld) [Mass/Vol] 16.4 g/dL Normal 11.7-17.4 [facility] Comment on above: Performed By: #### L [id number] ####[facility] RESPIRATORY [id number] [place] [address] [place] LPM 15 Normal [facility] Comment on above: Performed By: #### L [id number] ####[facility] RESPIRATORY [id number] [place] [address] [place] METHEMOGLOBIN/100 IN BLOOD 0.6 % Normal 0.0-1.5 [facility] Comment on above: Performed By: #### L [id number] ####[facility] RESPIRATORY [id number] [place] [address] [facility] Oxygen (Bld) [Partial pressure] 53 mm[Hg] Invalid Interpretation Code 83-100 [facility] Comment on above: Performed By: #### L [id number] ####[facility] RESPIRATORY [id number] [facility] [place] [address] [facility] OXYGEN SATURATION (%) IN ARTERIAL BLOOD 83.8 % Invalid Interpretation Code 94.0-98.0 [facility] Comment on above: Performed By: #### L [id number] ####[facility] RESPIRATORY [id number] [place] [address] [facility] OXYGENATED HEMOGLOBIN IN BLOOD 81.7 % Invalid Interpretation Code 90.0-95.0 [facility] Comment on above: Performed By: #### L [id number] ####[facility] RESPIRATORY [id number] [place] [address] [facility] pH (Bld) 7.43 [pH] Normal 7.35-7.45 [facility] Comment on above: Performed By: #### L [id number] ####[facility] RESPIRATORY [id number] [place] [address] [facility] SOURCE OF OXYGEN SALTER Normal [facility] Comment on above: Performed By: #### L [id number] ####[facility] RESPIRATORY [id number] [place] [address] [facility] ARTERIAL BLOOD GAS WITH IONI ZED CALCIUMon 08-21-2024 Base excess Calc (Bld) [Moles/Vol] 6.2 mmol/L High -2.0-3.0 [facility] Comment on above: Performed By: #### L [id number] ####[facility] RESPIRATORY [id number] [place] [address] [place] CALCIUM IONIZED (MMOL/L) IN BLOOD 1.30 mmol/L Normal 1.15-1.33 [facility] Comment on above: Performed By: #### L [id number] ####[facility] RESPIRATORY [id number] [place] [address] [place] CO2 (Bld) [Partial pressure] 45 mm[Hg] Normal 35-48 [facility] Comment on above: Performed By: #### L [id number] ####[facility] RESPIRATORY [id number] [place] [address] [facility] FIO2 50 % Normal [facility] Comment on above: Performed By: #### L [id number] ####[facility] RESPIRATORY [id number] [place] [address] [facility] HCO3 (Bld) [Moles/Vol] 31.3 mmol/L High 21.0-28.0 [facility] Comment on above: Performed By: #### L [id number] ####[facility] RESPIRATORY [id number] [place] [address] [facility] Oxygen (Bld) [Partial pressure] 70 mm[Hg] Low 83-100 [facility] Comment on above: Performed By: #### L [id number] ####[facility] [facility] RESPIRATORY [id number] [place] [address] [facility] OXYGEN SATURATION (%) IN ARTERIAL BLOOD 94.9 % Normal 94.0-98.0 [facility] Comment on above: Performed By: #### L [id number] ####[facility] RESPIRATORY [id number] [place] [address] [facility] PEEP 8 cmH2O Normal [facility] Comment on above: Performed By: #### L [id number] ####[facility] RESPIRATORY [id number] [place] [address] [facility] pH (Bld) 7.45 [pH] Normal 7.35-7.45 [facility] Comment on above: Performed By: #### L [id number] ####[facility] RESPIRATORY [id number] [place] [address] [place] PRESSURE SUPPORT 14 Normal [facility] Comment on above: Performed By: #### L [id number] ####[facility] RESPIRATORY [id number] [place] [address] [facility] SOURCE OF OXYGEN Bi-PAP Normal [facility] Comment on above: Performed By: #### L [id number] ####[facility] RESPIRATORY [id number] [place] [address] [facility] BASIC METABOLIC PANELon 02-0 Anion gap [Moles/Vol] 11 mmol/L Normal 7-20 [facility] Comment on above: Performed By: #### L [id number] ####[facility] HOSPITAL LAB (BEAKER)[address] [place] [address] Calcium [Mass/Vol] 9.4 mg/dL Normal 8.6-10.3 [facility] Comment on above: Performed By: #### L [id number] ####[facility] (BEAKER)[address] [place] [address] Chloride [Moles/Vol] 101 mmol/L Normal 98-107 [facility] Comment on above: Performed By: #### L [id number] ####[facility] (BEAKER)[address] [place] [address] CO2 [Moles/Vol] 30 mmol/L Normal 21-31 [facility] Comment on above: Performed By: #### L [id number] ####[facility] (BEAKER)[address] [place] [address] Creatinine [Mass/Vol] 1.05 mg/dL Normal 0.70-1.30 [facility] Comment on above: Performed By: #### L [id number] ####[facility] (BEAKER)[address] [place] [address] GLOMERULAR FILTRATION RATE ML/MIN/1.73 SQ M.PREDICTED 78.8 mL/min/1.73m*2 Normal >60.0 [facility] Comment on above: Result Comment: [facility]???s estimated glomerular filtration rate (eGFR) [...] of individuals. Performed By: #### L [id number] ####[facility] ([facility] [place] [address] Glucose [Mass/Vol] 269 mg/dL High 70-100 [facility] Comment on above: Performed By: #### L [id number] ####[facility] ([facility] [place] [address] Potassium [Moles/Vol] 4.0 mmol/L Normal 3.5-5.1 [facility] Comment on above: Performed By: #### L [id number] ####[facility] ([facility] [place] [address] Sodium [Moles/Vol] 138 mmol/L Normal 136-145 [facility] Comment on above: Performed By: #### L [id number] ####[facility] ([facility] [place] [address] Urea nitrogen [Mass/Vol] 35 mg/dL High 7-25 [facility] Comment on above: Performed By: #### L [id number] ####[facility] ([facility] [place] [address] UREA NITROGEN/CREATININE (MASS RATIO) IN SER/PLAS 33.3 Normal [facility] Comment on above: Performed By: #### L [id number] ####[facility] ([facility] [place] [address] CALCIUM, IONIZEDon CALCIUM IONIZED (MMOL/L) IN BLOOD 1.29 mmol/L Normal 1.15-1.33 [facility] Comment on above: Performed By: #### C ALCIUM, IONIZED ####[facility] RESPIRATORY [id number] [place] [address] [place] CBC WITH AUTO DIFFERENTIALon 08-21-2024 Basophils (Bld) [#/Vol] 0.05 10*3/uL Normal 0.00-0.20 [facility] Comment on above: Performed By: #### L [id number] ####[facility] HOSPITAL LAB (BEAKER)[address] [place] [address] Basophils/100 WBC (Bld) 0.6 % Normal 0.0-1.0 [facility] Comment on above: Performed By: #### L [id number] ####[facility] (BEAKER)[address] [place] [address] Eosinophils (Bld) [#/Vol] 0.43 10*3/uL Normal 0.00-0.50 [facility] Comment on above: Performed By: #### L [id number] ####[facility] (BEAKER)[address] [place] [address] Eosinophils/100 WBC (Bld) 5.2 % Normal 0.0-6.0 [facility] Comment on above: Performed By: #### L [id number] ####[facility] (BEAKER)[address] [place] [address] Erythrocyte distribution width (RBC) [Ratio] 14.8 % Normal 11.5-15.0 [facility] Comment on above: Performed By: #### L [id number] ####[facility] (BEAKER)[address] [place] [address] ERYTHROCYTE MEAN CORPUSCULAR HEMOGLOBIN CONCENTRATION (G/DL) BY AUTOMATED 31.1 g/dL Low 32.0-35.0 [facility] Comment on above: Performed By: #### L [id number] ####[facility] (BEAKER)[address] [place] [address] Hematocrit (Bld) [Volume fraction] 52.1 % Normal 39.0-55.0 [facility] Comment on above: Performed By: #### L [id number] ####[facility] (BEAKER)[address] [place] [address] Hemoglobin (Bld) [Mass/Vol] 16.2 g/dL Normal 13.0-17.0 [facility] Comment on above: Performed By: #### L [id number] ####[facility] (BEAKER)[address] [place] [address] Immature granulocytes (Bld) [#/Vol] 0.06 10*3/uL Normal 0.00-0.20 [facility] Comment on above: Performed By: #### L [id number] ####[facility] (BEAKER)[address] [place] [address] Immature granulocytes/100 WBC (Bld) 0.7 % Normal 0.0-1.0 [facility] Comment on above: Performed By: #### L [id number] ####[facility] (BEAKER)[address] [place] [address] Lymphocytes (Bld) [#/Vol] 1.10 10*3/uL Low 1.20-4.00 [facility] Comment on above: Performed By: #### L [id number] ####[facility] (BEAKER)[address] [place] [address] Lymphocytes/100 WBC (Bld) 13.3 % Low 20.0-45.0 [facility] Comment on above: Performed By: #### L [id number] ####[facility] (BEAKER)[address] [place] [address] MCH (RBC) [Entitic mass] 29.1 pg Normal 27.0-33.0 [facility] Comment on above: Performed By: #### L [id number] ####[facility] (BEAKER)[address] [place] [address] MCV (RBC) [Entitic vol] 93.7 fL Normal 82.0-98.0 U [facility] Comment on above: Performed By: #### L [id number] ####[facility] (BEAKER)[address] [place] [address] Monocytes (Bld) [#/Vol] 0.92 10*3/uL Normal 0.10-1.00 [facility] Comment on above: Performed By: #### L [id number] ####[facility] (BEAKER)[address] [place] [address] Monocytes/100 WBC (Bld) 11.1 % Normal 5.0-12.0 [facility] Comment on above: Performed By: #### L [id number] ####[facility] HOSPITAL LAB (BEAKER)[address] [place] [address] Neutrophils (Bld) [#/Vol] 5.72 10*3/uL Normal 1.60-7.60 [facility] Comment on above: Performed By: #### L [id number] ####[facility] [place] [address] Neutrophils/100 WBC (Bld) 69.1 % Normal 40.0-72.0 [facility] Comment on above: Performed By: #### L [id number] ####[facility] ([facility] [place] [address] NRBC (PER 100 WBCS) BY AUTOMATED COUNT 0.0 % Normal 0 [facility] Comment on above: Performed By: #### L [id number] ####[facility] ([facility] [place] [address] PLATELETS (10*3/UL) IN BLOOD AUTOMATED COUNT 199 10*3/uL Normal 150-400 [facility] Comment on above: Performed By: #### L [id number] ####[facility] (BEAKER)[address] [place] [address] RBC (Bld) [#/Vol] 5.56 10*6/uL Normal 4.20-5.70 [facility] Comment on above: Performed By: #### L [id number] ####[facility] (BEAKER)[address] [place] [address] WBC (Bld) [#/Vol] 8.28 10*3/uL Normal 4.00-10.60 [facility] Comment on above: Performed By: #### L [id number] ####[facility] (BEAKER)[address] [place] [address] CT BRAIN PERFUSIONon 025 CT BRAIN PERFUSION Invalid Interpretation Code [facility] CT HEAD WO IV CONTRASTon CT HEAD WO IV CONTRAST [facility] W IV CONTRASTon CTA HEAD W IV CONTRAST Normal [facility] CTA NECK W IV CONTRASTon CTA NECK W IV CONTRAST Normal [facility] MAGNESIUMon 08-21-2024 Magnesium [Mass/Vol] 1.8 mg/dL Low 1.9-2.7 [facility] Comment on above: Performed By: #### L [id number] ####[facility] ([facility] [place] [address] MRSA/MSSA DNA NASALon 2024 MRSA DNA Positive Abnormal Negative [facility] Comment on above: Order Comment: [...] preclude nasal colonization. Performed By: #### L [id number] ####[facility] (BEAKER)[address] [place] [address] MSSA DNA Negative Normal Negative [facility] Comment on above: Order Comment: [...] preclude nasal colonization. Performed By: #### L [id number] ####[facility] (BEAKER)[address] [place] [address] PHOSPHORUSon 08-21-2024 Magnesium [Mass/Vol] 2.5 mg/dL Normal 2.5-5.0 [facility] Comment on above: Performed By: #### L [id number] ####[facility] ([facility] [place] [address] POCT GLUCOSE METER UNSOLICIT ED RESULTSon 08-21-2024 Glucose [Mass/Vol] 230 mg/dL High 70-105 [facility] Comment on above: Order Comment: Waive d Testing in the ED is performed under the ED CLIA certificate #[id number]. Result Comment: [email or web address] Performed By: #### L [id number] ####[facility] ([facility] [place] [address] Glucose [Mass/Vol] 226 mg/dL High 70-105 [facility] Comment on above: Order Comment: Waive d Testing in the ED is performed under the ED CLIA certificate #[id number]. Result Comment: [email or web address] Performed By: #### L [id number] ####[facility] ([facility] [place] [address] Glucose [Mass/Vol] 229 mg/dL High 70-105 [facility] Comment on above: Order Comment: Waive d Testing in the ED is performed under the ED CLIA certificate #[id number]. Result Comment: [email or web address] Performed By: #### L [id number] ####[facility] ([facility] [place] [address] Glucose [Mass/Vol] 234 mg/dL High 70-105 [facility] Comment on above: Order Comment: Waive d Testing in the ED is performed under the ED CLIA certificate #[id number]. Result Comment: [email or web address] Performed By: #### L [id number] ####[facility] ([facility] [place] [address] POTASSIUM, WHOLE BLOODon Potassium [Moles/Vol] 3.3 mmol/L Low 3.5-5.1 [facility] Comment on above: Performed By: #### P OTASSIUM, WHOLE BLOOD ####[facility] RESPIRATORY [id number] [place] [address] [place] SODIUM, WHOLE BLOODon 2024 SODIUM, WHOLE BLOOD 137 Normal 136-145 [facility] Comment on above: Performed By: #### S ODIUM, WHOLE BLOOD ####[facility] RESPIRATORY [id number] [place] [address] [place] 30on 08-20-2024 30 Normal [facility] ANTI-XA (HEPARIN LEVEL)on HEPARIN UNFRACTIONATED (U/ML) IN PPP BY CHROMOGENIC METHOD 0.30 IU/mL Normal 0.3-0.7 [facility] Comment on above: Result Comment: Cupert[place] roxaban and Apixaban will interfere with the anti Xa assay used to monitor UFH and LMWH. Performed By: #### L [id number] ####[facility] (BEAKER)[address] [place] [address] BASIC METABOLIC PANELon 07-23 Anion gap [Moles/Vol] 8 mmol/L Normal 7-20 [facility] Comment on above: Performed By: #### L [id number] ####[facility] (BEAKER)[address] [place] [address] Calcium [Mass/Vol] 9.4 mg/dL Normal 8.6-10.3 [facility] Comment on above: Performed By: #### L [id number] ####[facility] (BEAKER)[address] [place] [address] Chloride [Moles/Vol] 99 mmol/L Normal 98-107 [facility] Comment on above: Performed By: #### L [id number] ####[facility] (BEAKER)[address] [place] [address] CO2 [Moles/Vol] 34 mmol/L High 21-31 [facility] Comment on above: Performed By: #### L [id number] ####[facility] LAB (BEAKER)[address] [place] [address] Creatinine [Mass/Vol] 0.97 mg/dL Normal 0.70-1.30 [facility] Comment on above: Performed By: #### L [id number] ####[facility] ([facility] [place] [address] GLOMERULAR FILTRATION RATE ML/MIN/1.73 SQ M.PREDICTED 86.6 mL/min/1.73m*2 Normal >60.0 [facility] Comment on above: Result Comment: [facility]???s estimated glomerular filtration rate (eGFR) [...] of individuals. Performed By: #### L [id number] ####[facility] ([facility] [place] [address] Glucose [Mass/Vol] 267 mg/dL High 70-100 [facility] Comment on above: Performed By: #### L [id number] ####[facility] ([facility] [place] [address] Potassium [Moles/Vol] 3.9 mmol/L Normal 3.5-5.1 [facility] Comment on above: Performed By: #### L [id number] ####[facility] ([facility] [place] [address] Sodium [Moles/Vol] 137 mmol/L Normal 136-145 [facility] Comment on above: Performed By: #### L [id number] ####[facility] ([facility] [place] [address] Urea nitrogen [Mass/Vol] 33 mg/dL High 7-25 [facility] Comment on above: Performed By: #### L [id number] ####[facility] (BEAKER)[address] [place] [address] UREA NITROGEN/CREATININE (MASS RATIO) IN SER/PLAS 34.0 Normal [facility] Comment on above: Performed By: #### L [id number] ####[facility] (BEAKER)[address] [place] [address] CBC WITH AUTO DIFFERENTIALon 08-20-2024 Basophils (Bld) [#/Vol] 0.04 10*3/uL Normal 0.00-0.20 [facility] Comment on above: Performed By: #### L [id number] ####[facility] [place] [address] Basophils/100 WBC (Bld) 0.4 % Normal 0.0-1.0 [facility] Comment on above: Performed By: #### L [id number] ####[facility] ([facility] [place] [address] Eosinophils (Bld) [#/Vol] 0.58 10*3/uL High 0.00-0.50 [facility] Comment on above: Performed By: #### L [id number] ####[facility] ([facility] [place] [address] Eosinophils/100 WBC (Bld) 5.6 % Normal 0.0-6.0 [facility] Comment on above: Performed By: #### L [id number] ####[facility] ([facility] [place] [address] Erythrocyte distribution width (RBC) [Ratio] 15.1 % High 11.5-15.0 [facility] Comment on above: Performed By: #### L [id number] ####[facility] ([facility] [place] [address] ERYTHROCYTE MEAN CORPUSCULAR HEMOGLOBIN CONCENTRATION (G/DL) BY AUTOMATED 30.5 g/dL Low 32.0-35.0 [facility] Comment on above: Performed By: #### L [id number] ####[facility] ([facility] [place] [address] Hematocrit (Bld) [Volume fraction] 52.1 % Normal 39.0-55.0 [facility] Comment on above: Performed By: #### L [id number] ####[facility] (BEAKER)[address] [place] [address] Hemoglobin (Bld) [Mass/Vol] 15.9 g/dL Normal 13.0-17.0 [facility] Comment on above: Performed By: #### L [id number] ####[facility] ([facility] [place] [address] Immature granulocytes (Bld) [#/Vol] 0.07 10*3/uL Normal 0.00-0.20 [facility] Comment on above: Performed By: #### L [id number] ####[facility] ([facility] [place] [address] Immature granulocytes/100 WBC (Bld) 0.7 % Normal 0.0-1.0 [facility] Comment on above: Performed By: #### L [id number] ####[facility] ([facility] [place] [address] Lymphocytes (Bld) [#/Vol] 0.94 10*3/uL Low 1.20-4.00 [facility] Comment on above: Performed By: #### L [id number] ####[facility] (BEAKER)[address] [place] [address] Lymphocytes/100 WBC (Bld) 9.1 % Low 20.0-45.0 [facility] Comment on above: Performed By: #### L [id number] ####[facility] (BEAKER)[address] [place] [address] MCH (RBC) [Entitic mass] 29.0 pg Normal 27.0-33.0 [facility] Comment on above: Performed By: #### L [id number] ####[facility] (BEAKER)[address] [place] [address] MCV (RBC) [Entitic vol] 94.9 fL Normal 82.0-98.0 [facility] Comment on above: Performed By: #### L [id number] ####[facility] (BEAKER)[address] [place] [address] Monocytes (Bld) [#/Vol] 0.95 10*3/uL Normal 0.10-1.00 [facility] Comment on above: Performed By: #### L [id number] ####[facility] (BEAKER)[address] [place] [address] Monocytes/100 WBC (Bld) 9.2 % Normal 5.0-12.0 [facility] Comment on above: Performed By: #### L [id number] ####[facility] (BEAKER)[address] [place] [address] Neutrophils (Bld) [#/Vol] 7.72 10*3/uL High 1.60-7.60 [facility] Comment on above: Performed By: #### L [id number] ####[facility] (BEAKER)[address] [place] [address] Neutrophils/100 WBC (Bld) 75.0 % High 40.0-72.0 [facility] Comment on above: Performed By: #### L [id number] ####[facility] (BEAKER)[address] [place] [address] NRBC (PER 100 WBCS) BY AUTOMATED COUNT 0.0 % Normal 0 [facility] Comment on above: Performed By: #### L [id number] ####[facility] (BEAKER)[address] [place] [address] PLATELETS (10*3/UL) IN BLOOD AUTOMATED COUNT 209 10*3/uL Normal 150-400 [facility] Comment on above: Performed By: #### L [id number] ####[facility] (BEAKER)[address] [place] [address] RBC (Bld) [#/Vol] 5.49 10*6/uL Normal 4.20-5.70 [facility] Comment on above: Performed By: #### L [id number] ####[facility] ([facility] [facility] [address] WBC (Bld) [#/Vol] 10.30 10*3/uL Normal 4.00-10.60 [facility] Comment on above: Performed By: #### L [id number] ####[facility] ([facility] [facility] [place] [address] MAGNESIUMon 08-20-2024 Magnesium [Mass/Vol] 1.9 mg/dL Normal 1.9-2.7 [facility] Comment on above: Performed By: #### L [id number] ####[facility] ([facility] [place] [address] PHOSPHORUSon 08-20-2024 Magnesium [Mass/Vol] 2.1 mg/dL Low 2.5-5.0 [facility] Comment on above: Performed By: #### L [id number] ####[facility] ([facility] [facility] [place] [address] POCT GLUCOSE METER UNSOLICIT ED RESULTSon 08-20-2024 Glucose [Mass/Vol] 268 mg/dL High 70-105 [facility] Comment on above: Order Comment: Waive d Testing in the ED is performed under the ED CLIA certificate #[id number]. Result Comment: [email or web address] Performed By: #### L [id number] ####[facility] ([facility] [place] [address] 30on 08-19-2024 30 Normal [facility] 30 Normal [facility] ANTI-XA (HEPARIN LEVEL)on HEPARIN UNFRACTIONATED (U/ML) IN PPP BY CHROMOGENIC METHOD 0.41 IU/mL Normal 0.3-0.7 [facility] Comment on above: Result Comment: [place] roxaban and Apixaban will interfere with the anti Xa assay used to monitor UFH and LMWH. Performed By: #### L [id number] ####[facility] ([facility])[address] [place] [address] BASIC METABOLIC PANELon 3 Anion gap [Moles/Vol] 8 mmol/L Normal 7-20 [facility] Comment on above: Performed By: #### L [id number] ####[facility] [place] [address] Calcium [Mass/Vol] 8.9 mg/dL Normal 8.6-10.3 [facility] Comment on above: Performed By: #### L [id number] ####[facility] ([facility] [place] [address] Chloride [Moles/Vol] 99 mmol/L Normal 98-107 [facility] Comment on above: Performed By: #### L [id number] ####[facility] [place] [address] CO2 [Moles/Vol] 37 mmol/L High 21-31 [facility] Comment on above: Performed By: #### L [id number] ####[facility] [place] [address] Creatinine [Mass/Vol] 1.00 mg/dL Normal 0.70-1.30 [facility] Comment on above: Performed By: #### L [id number] ####[facility] ([facility] [place] [address] GLOMERULAR FILTRATION RATE ML/MIN/1.73 SQ M.PREDICTED 83.5 mL/min/1.73m*2 Normal >60.0 [facility] Comment on above: Result Comment: [facility]???s estimated glomerular filtration rate (eGFR) [...] of individuals. Performed By: #### L [id number] ####[facility] ([facility] [place] [address] Glucose [Mass/Vol] 219 mg/dL High 70-100 [facility] Comment on above: Performed By: #### L [id number] ####[facility] ([facility] [place] [address] Potassium [Moles/Vol] 3.9 mmol/L Normal 3.5-5.1 [facility] Comment on above: Performed By: #### L [id number] ####[facility] ([facility] [place] [address] Sodium [Moles/Vol] 140 mmol/L Normal 136-145 [facility] Comment on above: Performed By: #### L [id number] ####[facility] ([facility] [place] [address] Urea nitrogen [Mass/Vol] 28 mg/dL High 7-25 [facility] Comment on above: Performed By: #### L [id number] ####[facility] ([facility] [place] [address] UREA NITROGEN/CREATININE (MASS RATIO) IN SER/PLAS 28.0 Normal [facility] Comment on above: Performed By: #### L [id number] ####[facility] ([facility] [place] [address] CBC WITH AUTO DIFFERENTIALon 08-19-2024 Basophils (Bld) [#/Vol] 0.04 10*3/uL Normal 0.00-0.20 [facility] Comment on above: Performed By: #### L [id number] ####[facility] ([facility] [place] [address] Basophils/100 WBC (Bld) 0.4 % Normal 0.0-1.0 [facility] Comment on above: Performed By: #### L [id number] ####[facility] ([facility])[address] [place] [address] Eosinophils (Bld) [#/Vol] 0.62 10*3/uL High 0.00-0.50 [facility] Comment on above: Performed By: #### L [id number] ####[facility] ([facility])[address] [place] [address] Eosinophils/100 WBC (Bld) 6.7 % High 0.0-6.0 [facility] Comment on above: Performed By: #### L [id number] ####[facility] [place] [address] Erythrocyte distribution width (RBC) [Ratio] 15.4 % High 11.5-15.0 [facility] Comment on above: Performed By: #### L [id number] ####[facility] ([facility] [place] [address] ERYTHROCYTE MEAN CORPUSCULAR HEMOGLOBIN CONCENTRATION (G/DL) BY AUTOMATED 29.8 g/dL Low 32.0-35.0 [facility] Comment on above: Performed By: #### L [id number] ####[facility] ([facility] [place] [address] Hematocrit (Bld) [Volume fraction] 49.4 % Normal 39.0-55.0 [facility] Comment on above: Performed By: #### L [id number] ####[facility] [place] [address] Hemoglobin (Bld) [Mass/Vol] 14.7 g/dL Normal 13.0-17.0 [facility] Comment on above: Performed By: #### L [id number] ####[facility] ([facility])[address] [place] [address] Immature granulocytes (Bld) [#/Vol] 0.06 10*3/uL Normal 0.00-0.20 [facility] Comment on above: Performed By: #### L [id number] ####[facility] ([facility])[address] [place] [address] Immature granulocytes/100 WBC (Bld) 0.7 % Normal 0.0-1.0 [facility] Comment on above: Performed By: #### L [id number] ####[facility] ([facility])[address] [place] [address] Lymphocytes (Bld) [#/Vol] 0.86 10*3/uL Low 1.20-4.00 [facility] Comment on above: Performed By: #### L [id number] ####[facility] ([facility])[address] [place] [address] Lymphocytes/100 WBC (Bld) 9.3 % Low 20.0-45.0 [facility] Comment on above: Performed By: #### L [id number] ####[facility] [place] [address] MCH (RBC) [Entitic mass] 28.9 pg Normal 27.0-33.0 [facility] Comment on above: Performed By: #### L [id number] ####[facility] ([facility])[address] [place] [address] MCV (RBC) [Entitic vol] 97.2 fL Normal 82.0-98.0 [facility] Comment on above: Performed By: #### L [id number] ####[facility] ([facility])[address] [place] [address] Monocytes (Bld) [#/Vol] 0.94 10*3/uL Normal 0.10-1.00 [facility] Comment on above: Performed By: #### L [id number] ####[facility] ([facility])[address] [place] [address] Monocytes/100 WBC (Bld) 10.2 % Normal 5.0-12.0 [facility] Comment on above: Performed By: #### L [id number] ####[facility] ([facility])[address] [place] [address] Neutrophils (Bld) [#/Vol] 6.68 10*3/uL Normal 1.60-7.60 [facility] Comment on above: Performed By: #### L [id number] ####[facility] [place] [address] Neutrophils/100 WBC (Bld) 72.7 % High 40.0-72.0 [facility] Comment on above: Performed By: #### L [id number] ####[facility] ([facility] [place] [address] NRBC (PER 100 WBCS) BY AUTOMATED COUNT 0.0 % Normal 0 [facility] Comment on above: Performed By: #### L [id number] ####[facility] ([facility] [address] PLATELETS (10*3/UL) IN BLOOD AUTOMATED COUNT 198 10*3/uL Normal 150-400 [facility] Comment on above: Performed By: #### L [id number] ####[facility] ([facility] [place] [address] RBC (Bld) [#/Vol] 5.08 10*6/uL Normal 4.20-5.70 [facility] Comment on above: Performed By: #### L [id number] ####[facility] ([facility] [address] WBC (Bld) [#/Vol] 9.20 10*3/uL Normal 4.00-10.60 [facility] Comment on above: Performed By: #### L [id number] ####[facility] [place] [address] CONSULTon 08-19-2024 CONSULT Normal [facility] MAGNESIUMon 08-19-2024 Magnesium [Mass/Vol] 1.9 mg/dL Normal 1.9-2.7 [facility] Comment on above: Performed By: #### L [id number] ####[facility] ([facility] [place] [address] PHOSPHORUSon 08-19-2024 Magnesium [Mass/Vol] 2.9 mg/dL Normal 2.5-5.0 [facility] Comment on above: Performed By: #### L [id number] ####[facility] ([facility] [place] [address] POCT GLUCOSE METER UNSOLICIT ED RESULTSon 08-19-2024 Glucose [Mass/Vol] 239 mg/dL High 70-105 [facility] Comment on above: Order Comment: Waive d Testing in the ED is performed under the ED CLIA certificate #[id number]. Result Comment: [email or web address] [email or web address] Performed By: #### L [id number] ####[facility] ([facility] [place] [address] Glucose [Mass/Vol] 251 mg/dL High 70-105 [facility] Comment on above: Order Comment: Waive d Testing in the ED is performed under the ED CLIA certificate #[id number]. Result Comment: [email or web address] [email or web address] Performed By: #### L [id number] ####[facility] ([facility] [place] [address] Glucose [Mass/Vol] 185 mg/dL High 70-105 [facility] Comment on above: Order Comment: Waive d Testing in the ED is performed under the ED CLIA certificate #[id number]. Result Comment: [email or web address] [email or web address] Performed By: #### L [id number] ####[facility] ([facility] [place] [address] TRIGLYCERIDESon 08-19-2024 FASTING? UNKNOWN Normal [facility] Comment on above: Performed By: #### L [id number] ####[facility] ([facility] [place] [address] Magnesium [Mass/Vol] 192 mg/dL High 40-149 [facility] Comment on above: Result Comment: TRIG LYCERIDE REFERENCE RANGE:20 YEARS AND OLDER CARDIOVASCULAR RISKLESS THAN 150 mg/dL LOW [id number] TO 199 mg/dL BORDERLINE [id number] mg/dL AND GREATER HIGH RISK Performed By: #### L [id number] ####[facility] ([facility] [place] [address] ANTI-XA (HEPARIN LEVEL)on HEPARIN UNFRACTIONATED (U/ML) IN PPP BY CHROMOGENIC METHOD 0.50 IU/mL Normal 0.3-0.7 [facility] Comment on above: Result Comment: Cupert[place] roxaban and Apixaban will interfere with the anti Xa assay used to monitor UFH and LMWH. Performed By: #### L [id number] ####[facility] ([facility] [place] [address] HEPARIN UNFRACTIONATED (U/ML) IN PPP BY CHROMOGENIC METHOD 0.60 IU/mL Normal 0.3-0.7 [facility] Comment on above: Result Comment: [place] roxaban and Apixaban will interfere with the anti Xa assay used to monitor UFH and LMWH. Performed By: #### L [id number] ####[facility] ([facility] [place] [address] BASIC METABOLIC PANELon 07-22 Anion gap [Moles/Vol] 8 mmol/L Normal 7-20 [facility] Comment on above: Performed By: #### L [id number] ####[facility] ([facility] [place] [address] Calcium [Mass/Vol] 8.7 mg/dL Normal 8.6-10.3 [facility] Comment on above: Performed By: #### L [id number] ####[facility] ([facility] [place] [address] Chloride [Moles/Vol] 98 mmol/L Normal 98-107 [facility] Comment on above: Performed By: #### L [id number] ####[facility] ([facility] [place] [address] CO2 [Moles/Vol] 41 mmol/L Critically high 21-31 [facility] Comment on above: Performed By: #### L [id number] ####[facility] ([facility] [place] [address] Creatinine [Mass/Vol] 1.05 mg/dL Normal 0.70-1.30 [facility] Comment on above: Performed By: #### L [id number] ####[facility] ([facility] [place] [address] GLOMERULAR FILTRATION RATE ML/MIN/1.73 SQ M.PREDICTED 78.8 mL/min/1.73m*2 Normal >60.0 [facility] Comment on above: Result Comment: [facility]???s estimated glomerular filtration rate (eGFR) [...] of individuals. Performed By: #### L [id number] ####[facility] ([facility] [place] [address] Glucose [Mass/Vol] 201 mg/dL High 70-100 [facility] Comment on above: Performed By: #### L [id number] ####[facility] ([facility] [place] [address] Potassium [Moles/Vol] 3.7 mmol/L Normal 3.5-5.1 [facility] Comment on above: Performed By: #### L [id number] ####[facility] ([facility] [place] [address] Sodium [Moles/Vol] 143 mmol/L Normal 136-145 [facility] Comment on above: Performed By: #### L [id number] ####[facility] [place] [address] Urea nitrogen [Mass/Vol] 25 mg/dL Normal 7-25 [facility] Comment on above: Performed By: #### L [id number] ####[facility] [place] [address] UREA NITROGEN/CREATININE (MASS RATIO) IN SER/PLAS 23.8 Normal [facility] Comment on above: Performed By: #### L [id number] ####[facility] [place] [address] CBC WITH AUTO DIFFERENTIALon 08-18-2024 Basophils (Bld) [#/Vol] 0.03 10*3/uL Normal 0.00-0.20 [facility] Comment on above: Performed By: #### L [id number] ####[facility] [place] [address] Basophils/100 WBC (Bld) 0.3 % Normal 0.0-1.0 [facility] Comment on above: Performed By: #### L [id number] ####[facility] ([facility])[address] [place] [address] Eosinophils (Bld) [#/Vol] 0.45 10*3/uL Normal 0.00-0.50 [facility] Comment on above: Performed By: #### L [id number] ####[facility] ([facility])[address] [place] [address] Eosinophils/100 WBC (Bld) 5.0 % Normal 0.0-6.0 [facility] Comment on above: Performed By: #### L [id number] ####[facility] [place] [address] Erythrocyte distribution width (RBC) [Ratio] 15.5 % High 11.5-15.0 [facility] Comment on above: Performed By: #### L [id number] ####[facility] ([facility])[address] [place] [address] ERYTHROCYTE MEAN CORPUSCULAR HEMOGLOBIN CONCENTRATION (G/DL) BY AUTOMATED 29.7 g/dL Low 32.0-35.0 [facility] Comment on above: Performed By: #### L [id number] ####[facility] ([facility])[address] [place] [address] Hematocrit (Bld) [Volume fraction] 49.5 % Normal 39.0-55.0 [facility] Comment on above: Performed By: #### L [id number] ####[facility] [place] [address] Hemoglobin (Bld) [Mass/Vol] 14.7 g/dL Normal 13.0-17.0 [facility] Comment on above: Performed By: #### L [id number] ####[facility] ([facility] [place] [address] Immature granulocytes (Bld) [#/Vol] 0.05 10*3/uL Normal 0.00-0.20 [facility] Comment on above: Performed By: #### L [id number] ####[facility] ([facility] [place] [address] Immature granulocytes/100 WBC (Bld) 0.6 % Normal 0.0-1.0 [facility] Comment on above: Performed By: #### L [id number] ####[facility] ([facility])[address] [place] [address] Lymphocytes (Bld) [#/Vol] 0.93 10*3/uL Low 1.20-4.00 [facility] Comment on above: Performed By: #### L [id number] ####[facility] ([facility])[address] [place] [address] Lymphocytes/100 WBC (Bld) 10.4 % Low 20.0-45.0 [facility] Comment on above: Performed By: #### L [id number] ####[facility] ([facility])[address] [place] [address] MCH (RBC) [Entitic mass] 29.2 pg Normal 27.0-33.0 [facility] Comment on above: Performed By: #### L [id number] ####[facility] ([facility])[address] [place] [address] MCV (RBC) [Entitic vol] 98.2 fL High 82.0-98.0 [facility] Comment on above: Performed By: #### L [id number] ####[facility] ([facility])[address] [place] [address] Monocytes (Bld) [#/Vol] 1.06 10*3/uL High 0.10-1.00 [facility] Comment on above: Performed By: #### L [id number] ####[facility] ([facility])[address] [place] [address] Monocytes/100 WBC (Bld) 11.9 % Normal 5.0-12.0 [facility] Comment on above: Performed By: #### L [id number] ####[facility] ([facility])[address] [place] [address] Neutrophils (Bld) [#/Vol] 6.41 10*3/uL Normal 1.60-7.60 [facility] Comment on above: Performed By: #### L [id number] ####[facility] ([facility])[address] [place] [address] Neutrophils/100 WBC (Bld) 71.8 % Normal 40.0-72.0 [facility] Comment on above: Performed By: #### L [id number] ####[facility] ([facility])[address] [place] [address] NRBC (PER 100 WBCS) BY AUTOMATED COUNT 0.0 % Normal 0 [facility] Comment on above: Performed By: #### L [id number] ####[facility] ([facility])[address] [place] [address] PLATELETS (10*3/UL) IN BLOOD AUTOMATED COUNT 208 10*3/uL Normal 150-400 [facility] Comment on above: Performed By: #### L [id number] ####[facility] ([facility])[address] [place] [address] RBC (Bld) [#/Vol] 5.04 10*6/uL Normal 4.20-5.70 [facility] Comment on above: Performed By: #### L [id number] ####[facility] ([facility] [place] [address] WBC (Bld) [#/Vol] 8.93 10*3/uL Normal 4.00-10.60 [facility] Comment on above: Performed By: #### L [id number] ####[facility] ([facility] [place] [address] CONSULTon 08-18-2024 CONSULT Normal [facility] MAGNESIUMon 08-18-2024 Magnesium [Mass/Vol] 2.1 mg/dL Normal 1.9-2.7 [facility] Comment on above: Performed By: #### L [id number] ####[facility] ([facility] [place] [address] PHOSPHORUSon 08-18-2024 Magnesium [Mass/Vol] 2.9 mg/dL Normal 2.5-5.0 [facility] Comment on above: Performed By: #### L [id number] ####[facility] ([facility] [place] [address] POCT GLUCOSE METER UNSOLICIT ED RESULTSon 08-18-2024 Glucose [Mass/Vol] 194 mg/dL High 70-105 [facility] Comment on above: Order Comment: Waive d Testing in the ED is performed under the ED CLIA certificate #[id number]. Result Comment: [email or web address] [email or web address] Performed By: #### L [id number] ####[facility] ([facility] [place] [address] Glucose [Mass/Vol] 183 mg/dL High 70-105 [facility] Comment on above: Order Comment: Waive d Testing in the ED is performed under the ED CLIA certificate #[id number]. Result Comment: ezab ors2 Performed By: #### L [id number] ####[facility] ([facility] [place] [address] Glucose [Mass/Vol] 173 mg/dL High 70-105 [facility] Comment on above: Order Comment: Waive d Testing in the ED is performed under the ED CLIA certificate #[id number]. Result Comment: ezab [email or web address] Performed By: #### L [id number] ####[facility] ([facility] [place] [address] Glucose [Mass/Vol] 200 mg/dL High 70-105 [facility] Comment on above: Order Comment: Waive d Testing in the ED is performed under the ED CLIA certificate #[id number]. Result Comment: alexandru [email or web address] Performed By: #### L [id number] ####[facility] ([facility] [place] [address] SPUTUM CULTUREon 08-18-2024 Clindamycin [Susc] <=0.5 Susceptible [facility] Comment on above: Performed By: #### L [id number] ####[facility] ([facility] [place] [address] DAPTOmycin [Susc] <=1 Susceptible [facility] Comment on above: Performed By: #### L [id number] ####[facility] ([facility] [place] [address] Linezolid [Susc] <=1 Susceptible [facility] Comment on above: Performed By: #### L [id number] ####[facility] ([facility] [place] [address] Oxacillin [Susc] >2 [facility]istant [facility] Comment on above: Performed By: #### L [id number] ####[facility] ([facility] [place] [address] Tetracycline [Susc] <=0.5 Susceptible [facility] Comment on above: Performed By: #### L [id number] ####[facility] ([facility] [place] [address] Trimethoprim+Sulfamethox azole [Susc] <=0.5/9.5 Susceptible [facility] Comment on above: Performed By: #### L [id number] ####[facility] ([facility] [place] [address] Vancomycin [Susc] <=0.5 Susceptible [facility] Comment on above: Performed By: #### L [id number] ####[facility] ([facility] [place] [address] TRIGLYCERIDESon 08-18-2024 FASTING? unknown Normal [facility] Comment on above: Performed By: #### L [id number] ####[facility] ([facility] [place] [address] Magnesium [Mass/Vol] 154 mg/dL High 40-149 [facility] Comment on above: Result Comment: TRIG LYCERIDE REFERENCE RANGE:20 YEARS AND OLDER CARDIOVASCULAR RISKLESS THAN 150 mg/dL LOW [id number] TO 199 mg/dL BORDERLINE [id number] mg/dL AND GREATER HIGH RISK Performed By: #### L [id number] ####[facility] ([facility] [place] [address] 30on 08-17-2024 30 Normal [facility] ANTI-XA (HEPARIN LEVEL)on HEPARIN UNFRACTIONATED (U/ML) IN PPP BY CHROMOGENIC METHOD 0.86 IU/mL High 0.3-0.7 [facility] Comment on above: Result Comment: Tatyana roxaban and Apixaban will interfere with the anti Xa assay used to monitor UFH and LMWH. Performed By: #### L [id number] ####[facility] ([facility] [place] [address] HEPARIN UNFRACTIONATED (U/ML) IN PPP BY CHROMOGENIC METHOD >1.00 Critically high 0.3-0.7 [facility] Comment on above: Result Comment: [place] roxaban and Apixaban will interfere with the anti Xa assay used to monitor UFH and LMWH. Performed By: #### L [id number] ####[facility] ([facility] [place] [address] HEPARIN UNFRACTIONATED (U/ML) IN PPP BY CHROMOGENIC METHOD >1.00 Critically high 0.3-0.7 [facility] Comment on above: Performed By: #### L [id number] ####[facility] ([facility] [place] [address] APTTon 08-17-2024 ACTIVATED PARTIAL THROMBOPLASTIN TIME IN PPP BY COAGULATION ASSAY 99.6 Seconds High 25.0-35.0 [facility] Comment on above: Result Comment: Clin ical significance of the APTT is questionable in the presence of heparin. Performed By: #### L [id number] ####[facility] ([facility] [place] [address] ACTIVATED PARTIAL THROMBOPLASTIN TIME IN PPP BY COAGULATION ASSAY 98.9 Seconds High 25.0-35.0 [facility] Comment on above: Result Comment: Clin ical significance of the APTT is questionable in the presence of heparin. Performed By: #### L [id number] ####[facility] ([facility] [place] [address] B-TYPE NATRIURETIC PEPTIDEon 08-17-2024 Natriuretic peptide B (Bld) [Mass/Vol] 75 pg/mL Normal 0-100 [facility] Comment on above: Performed By: #### L [id number] ####[facility] ([facility] [place] [address] BASIC METABOLIC PANELon 07-22 Anion gap [Moles/Vol] 9 mmol/L Normal 7-20 [facility] Comment on above: Performed By: #### L [id number] ####[facility] ([facility] [address] Calcium [Mass/Vol] 8.8 mg/dL Normal 8.6-10.3 [facility] Comment on above: Performed By: #### L [id number] ####[facility] ([facility] [place] [address] Chloride [Moles/Vol] 97 mmol/L Low 98-107 [facility] Comment on above: Performed By: #### L [id number] ####[facility] ([facility] [place] [address] CO2 [Moles/Vol] 45 mmol/L Critically high 21-31 [facility] Comment on above: Performed By: #### L [id number] ####[facility] ([facility] [place] [address] Creatinine [Mass/Vol] 0.93 mg/dL Normal 0.70-1.30 [facility] Comment on above: Performed By: #### L [id number] ####[facility] ([facility] [place] [address] GLOMERULAR FILTRATION RATE ML/MIN/1.73 SQ M.PREDICTED 91.1 mL/min/1.73m*2 Normal >60.0 [facility] Comment on above: Result Comment: [facility]???s estimated glomerular filtration rate (eGFR) [...] of individuals. Performed By: #### L [id number] ####[facility] ([facility] [place] [address] Glucose [Mass/Vol] 190 mg/dL High 70-100 [facility] Comment on above: Performed By: #### L [id number] ####[facility] ([facility] [place] [address] Potassium [Moles/Vol] 3.5 mmol/L Normal 3.5-5.1 [facility] Comment on above: Performed By: #### L [id number] ####[facility] ([facility])[address] [place] [address] Sodium [Moles/Vol] 147 mmol/L High 136-145 [facility] Comment on above: Performed By: #### L [id number] ####[facility] ([facility])[address] [place] [address] Urea nitrogen [Mass/Vol] 28 mg/dL High 7-25 [facility] Comment on above: Performed By: #### L [id number] ####[facility] [place] [address] UREA NITROGEN/CREATININE (MASS RATIO) IN SER/PLAS 30.1 Normal [facility] Comment on above: Performed By: #### L [id number] ####[facility] [place] [address] CBC WITH AUTO DIFFERENTIALon 08-17-2024 Basophils (Bld) [#/Vol] 0.02 10*3/uL Normal 0.00-0.20 [facility] Comment on above: Performed By: #### L [id number] ####[facility] ([facility])[address] [place] [address] Basophils/100 WBC (Bld) 0.2 % Normal 0.0-1.0 [facility] Comment on above: Performed By: #### L [id number] ####[facility] ([facility])[address] [place] [address] Eosinophils (Bld) [#/Vol] 0.20 10*3/uL Normal 0.00-0.50 [facility] Comment on above: Performed By: #### L [id number] ####[facility] ([facility])[address] [place] [address] Eosinophils/100 WBC (Bld) 2.4 % Normal 0.0-6.0 [facility] Comment on above: Performed By: #### L [id number] ####[facility] ([facility])[address] [place] [address] Erythrocyte distribution width (RBC) [Ratio] 15.3 % High 11.5-15.0 [facility] Comment on above: Performed By: #### L [id number] ####[facility] ([facility])[address] [place] [place] [address] ERYTHROCYTE MEAN CORPUSCULAR HEMOGLOBIN CONCENTRATION (G/DL) BY AUTOMATED 30.0 g/dL Low 32.0-35.0 [facility] Comment on above: Performed By: #### L [id number] ####[facility] ([facility])[address] [place], [place] [address] Hematocrit (Bld) [Volume fraction] 49.7 % Normal 39.0-55.0 [facility] Comment on above: Performed By: #### L [id number] ####[facility] ([facility])[address] [place] [address] Hemoglobin (Bld) [Mass/Vol] 14.9 g/dL Normal 13.0-17.0 [facility] Comment on above: Performed By: #### L [id number] ####[facility] ([facility])[address] [place], [place] [address] Immature granulocytes (Bld) [#/Vol] 0.04 10*3/uL Normal 0.00-0.20 [facility] Comment on above: Performed By: #### L [id number] ####[facility] ([facility])[address] [place], [place] [address] Immature granulocytes/100 WBC (Bld) 0.5 % Normal 0.0-1.0 [facility] Comment on above: Performed By: #### L [id number] ####[facility] ([facility])[address] [place], [place] [address] Lymphocytes (Bld) [#/Vol] 0.87 10*3/uL Low 1.20-4.00 [facility] Comment on above: Performed By: #### L [id number] ####[facility] ([facility])[address] [place] [address] Lymphocytes/100 WBC (Bld) 10.5 % Low 20.0-45.0 [facility] Comment on above: Performed By: #### L [id number] ####[facility] [place] [address] MCH (RBC) [Entitic mass] 29.0 pg Normal 27.0-33.0 [facility] Comment on above: Performed By: #### L [id number] ####[facility] ([facility] [place] [address] MCV (RBC) [Entitic vol] 96.9 fL Normal 82.0-98.0 [facility] Comment on above: Performed By: #### L [id number] ####[facility] ([facility] [place] [address] Monocytes (Bld) [#/Vol] 1.21 10*3/uL High 0.10-1.00 [facility] Comment on above: Performed By: #### L [id number] ####[facility] [place] [address] Monocytes/100 WBC (Bld) 14.6 % High 5.0-12.0 [facility] Comment on above: Performed By: #### L [id number] ####[facility] ([facility])[address] [place] [address] Neutrophils (Bld) [#/Vol] 5.97 10*3/uL Normal 1.60-7.60 [facility] Comment on above: Performed By: #### L [id number] ####[facility] ([facility])[address] [place] [address] Neutrophils/100 WBC (Bld) 71.8 % Normal 40.0-72.0 [facility] Comment on above: Performed By: #### L [id number] ####[facility] ([facility])[address] [place] [address] NRBC (PER 100 WBCS) BY AUTOMATED COUNT 0.0 % Normal 0 [facility] Comment on above: Performed By: #### L [id number] ####[facility] [place] [address] PLATELETS (10*3/UL) IN BLOOD AUTOMATED COUNT 210 10*3/uL Normal 150-400 [facility] Comment on above: Performed By: #### L [id number] ####[facility] ([facility] [place] [address] RBC (Bld) [#/Vol] 5.13 10*6/uL Normal 4.20-5.70 [facility] Comment on above: Performed By: #### L [id number] ####[facility] ([facility] [place] [address] WBC (Bld) [#/Vol] 8.31 10*3/uL Normal 4.00-10.60 [facility] Comment on above: Performed By: #### L [id number] ####[facility] ([facility] [place] [address] MAGNESIUMon 08-17-2024 Magnesium [Mass/Vol] 2.2 mg/dL Normal 1.9-2.7 [facility] Comment on above: Performed By: #### L [id number] ####[facility] ([facility])[address] [place] [address] Magnesium [Mass/Vol] 1.8 mg/dL Low 1.9-2.7 [facility] Comment on above: Performed By: #### L [id number] ####[facility] ([facility])[address] [place] [address] Magnesium [Mass/Vol] 1.6 mg/dL Low 1.9-2.7 [facility] Comment on above: Performed By: #### L [id number] ####[facility] ([facility])[address] [place] [address] PHOSPHORUSon 08-17-2024 Magnesium [Mass/Vol] 3.2 mg/dL Normal 2.5-5.0 [facility] Comment on above: Performed By: #### L [id number] ####[facility] ([facility] [place] [address] POCT GLUCOSE METER UNSOLICIT ED RESULTSon 08-17-2024 Glucose [Mass/Vol] 184 mg/dL High 70-105 [facility] Comment on above: Order Comment: Waive d Testing in the ED is performed under the ED CLIA certificate #[id number]. Result Comment: [email or web address] [email or web address] Performed By: #### L [id number] ####[facility] ([facility] [place] [address] Glucose [Mass/Vol] 191 mg/dL High 70-105 [facility] Comment on above: Order Comment: Waive d Testing in the ED is performed under the ED CLIA certificate #[id number]. Result Comment: umesh ramirez2 Performed By: #### L [id number] ####[facility] ([facility] [place] [address] POTASSIUMon 08-17-2024 Potassium [Moles/Vol] 3.8 mmol/L Normal 3.5-5.1 [facility] Comment on above: Performed By: #### L [id number] ####[facility] ([facility] [place] [address] Potassium [Moles/Vol] 3.7 mmol/L Normal 3.5-5.1 [facility] Comment on above: Performed By: #### L [id number] ####[facility] ([facility] [place] [address] PROTIME-INRon 08-17-2024 INR IN PPP BY COAGULATION ASSAY 1.19 High 0.90-1.10 [facility] Comment on above: Result Comment: [...] CHEST 1995;108:231S-246S. Performed By: #### L [id number] ####[facility] (BEAKER)[address] [facility] [place] [address] PROTHROMBIN TIME (PT) IN PPP BY COAGULATION ASSAY 15.0 Seconds High 12.3-14.8 [facility] Comment on above: Performed By: #### L [id number] ####[facility] ([facility]ER)[address] [place] [address] INR IN PPP BY COAGULATION ASSAY 1.19 High 0.90-1.10 [facility] Comment on above: Result Comment: [facility] FOR WARFARIN THERAPY CONDITION INRPROPHYLAXIS OF VENOUS THROMBOSIS 2-3(HIGH-RISK SURGERY)TREATMENT OF VENOUS THROMBOSIS 2-3TREATMENT OF PULMONARY EMBOLISM 2-3PREVENTION OF SYSTEMIC EMBOLISM: 2-3 ACUTE MYOCARDIAL INFARCTION TISSUE HEART VALVES VALVULAR HEART DISEASE ATRIAL FIBRILLATION RECURRENT SYSTEMIC EMBOLISMMECHANICAL HEART VALVE 2.5-3.5 FROM: ORAL ANTICOAGULANTS. MECHANISM OF ACTION, CLINICAL EFFECTIVENESS, AND OPTIMAL THERAPEUTIC RANGE. CHEST 1995;108:231S-246S. Performed By: #### L [id number] ####[facility] ([facility] [place] [address] PROTHROMBIN TIME (PT) IN PPP BY COAGULATION ASSAY 15.1 Seconds High 12.3-14.8 [facility] Comment on above: Performed By: #### L [id number] ####[facility] ([facility] [facility] [place] [address] TRIGLYCERIDESon 08-17-2024 FASTING? Unknown Normal [facility] Comment on above: Performed By: #### L [id number] ####[facility] ([facility] [facility] [place] [address] Magnesium [Mass/Vol] 119 mg/dL Normal 40-149 [facility] Comment on above: Result Comment: TRIG LYCERIDE REFERENCE RANGE:20 YEARS AND OLDER CARDIOVASCULAR RISKLESS THAN 150 mg/dL LOW [id number] TO 199 mg/dL BORDERLINE [id number] mg/dL AND GREATER HIGH RISK Performed By: #### L [id number] ####[facility] ([facility] [place] [address] TROPONIN Ion 08-17-2024 Troponin I.cardiac [Mass/Vol] 0.04 ng/mL Normal 0.00-0.04 [facility] Comment on above: Performed By: #### L [id number] ####[facility] ([facility] [place] [address] Troponin I.cardiac [Mass/Vol] 0.04 ng/mL Normal 0.00-0.04 [facility] Comment on above: Performed By: #### L [id number] ####[facility] ([facility] [place] [address] VANCOMYCIN, TROUGHon 025 VANCOMYCIN (UG/ML) IN SER/PLAS - TROUGH 23.6 ug/mL Critically high 5.0-20.0 [facility] Comment on above: Performed By: #### L [id number] ####[facility] ([facility])[address] [place] [address] BASIC METABOLIC PANELon -2 Anion gap [Moles/Vol] 11 mmol/L Normal 7-20 [facility] Comment on above: Performed By: #### L [id number] ####[facility] ([facility]ER)[address] [place] [address] Calcium [Mass/Vol] 8.9 mg/dL Normal 8.6-10.3 [facility] Comment on above: Performed By: #### L [id number] ####[facility] [place] [address] Chloride [Moles/Vol] 99 mmol/L Normal 98-107 [facility] Comment on above: Performed By: #### L [id number] ####[facility] [place] [address] CO2 [Moles/Vol] 38 mmol/L High 21-31 [facility] Comment on above: Performed By: #### L [id number] ####[facility] ([facility] [place] [address] Creatinine [Mass/Vol] 1.10 mg/dL Normal 0.70-1.30 [facility] Comment on above: Performed By: #### L [id number] ####[facility] ([facility] [place] [address] GLOMERULAR FILTRATION RATE ML/MIN/1.73 SQ M.PREDICTED 74.5 mL/min/1.73m*2 Normal >60.0 [facility] Comment on above: Result Comment: [facility]???s estimated glomerular filtration rate (eGFR) [...] of individuals. Performed By: #### L [id number] ####[facility] ([facility] [place] [place] [address] Glucose [Mass/Vol] 202 mg/dL High 70-100 [facility] Comment on above: Performed By: #### L [id number] ####[facility] ([facility] [place] [place] [address] Potassium [Moles/Vol] 3.3 mmol/L Low 3.5-5.1 [facility] Comment on above: Performed By: #### L [id number] ####[facility] ([facility] [facility] [place] [address] Sodium [Moles/Vol] 145 mmol/L Normal 136-145 [facility] Comment on above: Performed By: #### L [id number] ####[facility] ([facility] [place] [address] Urea nitrogen [Mass/Vol] 38 mg/dL High 7-25 [facility] Comment on above: Performed By: #### L [id number] ####[facility] ([facility] [facility] [place] [address] UREA NITROGEN/CREATININE (MASS RATIO) IN SER/PLAS 34.5 Normal [facility] Comment on above: Performed By: #### L [id number] ####[facility] ([facility] [place] [place] [address] CALCIUM, IONIZEDon CALCIUM IONIZED (MMOL/L) IN BLOOD Normal [facility] Comment on above: Result Comment: C^In calculable Performed By: #### C ALCIUM, IONIZED ####[facility] [id number] [place] [address] [place] CBC WITH AUTO DIFFERENTIALon 08-16-2024 Erythrocyte distribution width (RBC) [Ratio] 15.1 % High 11.5-15.0 [facility] Comment on above: Performed By: #### L [id number] ####[facility] [place] [address] ERYTHROCYTE MEAN CORPUSCULAR HEMOGLOBIN CONCENTRATION (G/DL) BY AUTOMATED 30.9 g/dL Low 32.0-35.0 [facility] Comment on above: Performed By: #### L [id number] ####[facility] ([facility] [place] [address] Hematocrit (Bld) [Volume fraction] 52.1 % Normal 39.0-55.0 [facility] Comment on above: Performed By: #### L [id number] ####[facility] ([facility] [place] [address] Hemoglobin (Bld) [Mass/Vol] 16.1 g/dL Normal 13.0-17.0 [facility] Comment on above: Performed By: #### L [id number] ####[facility] ([facility] [place] [address] MCH (RBC) [Entitic mass] 29.4 pg Normal 27.0-33.0 [facility] Comment on above: Performed By: #### L [id number] ####[facility] ([facility] [place] [address] MCV (RBC) [Entitic vol] 95.1 fL Normal 82.0-98.0 [facility] Comment on above: Performed By: #### L [id number] ####[facility] ([facility] [place] [address] NRBC (PER 100 WBCS) BY AUTOMATED COUNT 0.0 % Normal 0 [facility] Comment on above: Performed By: #### L [id number] ####[facility] ([facility] [place] [address] PLATELETS (10*3/UL) IN BLOOD AUTOMATED COUNT 243 10*3/uL Normal 150-400 [facility] Comment on above: Performed By: #### L [id number] ####[facility] [place] [address] RBC (Bld) [#/Vol] 5.48 10*6/uL Normal 4.20-5.70 [facility] Comment on above: Performed By: #### L [id number] ####[facility] ([facility] [place] [address] WBC (Bld) [#/Vol] 9.57 10*3/uL Normal 4.00-10.60 [facility] Comment on above: Performed By: #### L [id number] ####[facility] ([facility] [place] [address] CONSULTon 08-16-2024 CONSULT Normal [facility] CONSULT Normal [facility] CTA CHEST W IV CONTRASTon CTA CHEST W IV CONTRAST Invalid Interpretation Code [facility] MAGNESIUMon 08-16-2024 Magnesium [Mass/Vol] 1.9 mg/dL Normal 1.9-2.7 [facility] Comment on above: Performed By: #### L [id number] ####[facility] ([facility] [place] [address] Magnesium [Mass/Vol] 1.7 mg/dL Low 1.9-2.7 [facility] Comment on above: Performed By: #### L [id number] ####[facility] ([facility] [place] [address] MANUAL DIFFERENTIALon 2024 BASOPHILS (10*3/UL) IN BLOOD BY CALCULATION 0.02 10*3/uL Normal 0.00-0.20 [facility] Comment on above: Performed By: #### L [id number] ####[facility] ([facility] [place] [address] BASOPHILS/100 LEUKOCYTES IN BLOOD BY AUTOMATED COUNT 0.2 % Normal 0.0-1.0 [facility] Comment on above: Performed By: #### L [id number] ####[facility] ([facility] [place] [address] EOSINOPHILS (10*3/UL) IN BLOOD BY CALCULATION 0.10 10*3/uL Normal 0.00-0.50 [facility] Comment on above: Performed By: #### L [id number] ####[facility] ([facility] [place] [address] EOSINOPHILS/100 LEUKOCYTES IN BLOOD BY AUTOMATED COUNT 1.0 % Normal 0.0-6.0 [facility] Comment on above: Performed By: #### L [id number] ####[facility] ([facility] [place] [address] IMMATURE GRANULOCYTES (10*3/UL) IN BLOOD BY CALCULATION 0.06 10*3/uL Normal 0.00-0.20 [facility] Comment on above: Performed By: #### L [id number] ####[facility] ([facility] [place] [address] IMMATURE GRANULOCYTES/100 LEUKOCYTES IN BLOOD BY AUTOMATED COUNT 0.6 % Normal 0.0-1.0 [facility] Comment on above: Performed By: #### L [id number] ####[facility] ([facility] [place] [address] LYMPHOCYTES (10*3/UL) IN BLOOD BY CALCULATION 0.73 10*3/uL Low 1.20-4.00 [facility] Comment on above: Performed By: #### L [id number] ####[facility] ([facility] [place] [address] LYMPHOCYTES/100 LEUKOCYTES IN BLOOD BY AUTOMATED COUNT 7.6 % Low 20.0-45.0 [facility] Comment on above: Performed By: #### L [id number] ####[facility] ([facility] [place] [address] MONOCYTES (10*3/UL) IN BLOOD BY CALCUATION 1.52 10*3/uL High 0.10-1.00 [facility] Comment on above: Performed By: #### L [id number] ####[facility] ([facility] [place] [address] MONOCYTES/100 LEUKOCYTES IN BLOOD BY AUTOMATED COUNT 15.9 % High 5.0-12.0 [facility] Comment on above: Performed By: #### L [id number] ####[facility] ([facility] [place] [address] NEUTROPHILS (10*3/UL) IN BLOOD BY CALCULATION 7.1 10*3/uL Normal 1.6-7.6 [facility] Comment on above: Performed By: #### L [id number] ####[facility] ([facility] [place], [place] [address] NEUTROPHILS/100 LEUKOCYTES IN BLOOD BY AUTOMATED COUNT 74.7 % High 40.0-72.0 [facility] Comment on above: Performed By: #### L [id number] ####[facility] ([facility] [place] [address] PHOSPHORUSon 08-16-2024 Magnesium [Mass/Vol] 3.8 mg/dL Normal 2.5-5.0 [facility] Comment on above: Performed By: #### L [id number] ####[facility] ([facility] [place] [address] Magnesium [Mass/Vol] 1.8 mg/dL Low 2.5-5.0 [facility] Comment on above: Performed By: #### L [id number] ####[facility] ([facility] [place] [address] POCT GLUCOSE METER UNSOLICIT ED RESULTSon 08-16-2024 Glucose [Mass/Vol] 189 mg/dL High 70-105 [facility] Comment on above: Order Comment: Waive d Testing in the ED is performed under the ED CLIA certificate #[id number]. Result Comment: [facility] Performed By: #### L [id number] ####[facility] ([facility] [place] [address] Glucose [Mass/Vol] 205 mg/dL High 70-105 [facility] Comment on above: Order Comment: Waive d Testing in the ED is performed under the ED CLIA certificate #[id number]. Result Comment: rgil l Performed By: #### L [id number] ####[facility] ([facility] [place] [address] Glucose [Mass/Vol] 200 mg/dL High 70-105 [facility] Comment on above: Order Comment: Waive d Testing in the ED is performed under the ED CLIA certificate #[id number]. Result Comment: ezab [email or web address] Performed By: #### L [id number] ####[facility] ([facility] [place] [address] Glucose [Mass/Vol] 207 mg/dL High 70-105 [facility] Comment on above: Order Comment: Waive d Testing in the ED is performed under the ED CLIA certificate #[id number]. Result Comment: oyod er Performed By: #### L [id number] ####[facility] ([facility] [place] [address] POTASSIUMon 08-16-2024 Potassium [Moles/Vol] 3.3 mmol/L Low 3.5-5.1 [facility] Comment on above: Performed By: #### L [id number] ####[facility] ([facility] [place] [address] Potassium [Moles/Vol] 3.5 mmol/L Normal 3.5-5.1 [facility] Comment on above: Performed By: #### L [id number] ####[facility] ([facility] [place] [address] POTASSIUM, WHOLE BLOODon Potassium [Moles/Vol] 3.5 mmol/L Normal 3.5-5.1 [facility] Comment on above: Performed By: #### P OTASSIUM, WHOLE BLOOD ####[facility] RESPIRATORY [id number] [place] [address] [place] SODIUM, WHOLE BLOODon 2024 SODIUM, WHOLE BLOOD [facility] Comment on above: Result Comment: C^In calculable Performed By: #### S ODIUM, WHOLE BLOOD ####[facility] RESPIRATORY [id number] [place] [address] [facility] TRIGLYCERIDESon 08-16-2024 FASTING? Unknown Normal [facility] Comment on above: Performed By: #### L [id number] ####[facility] (BEAKER)[address] [place] [address] Magnesium [Mass/Vol] 243 mg/dL High 40-149 [facility] Comment on above: Result Comment: TRIG LYCERIDE REFERENCE RANGE:20 YEARS AND OLDER CARDIOVASCULAR RISKLESS THAN 150 mg/dL LOW [id number] TO 199 mg/dL BORDERLINE XISA430 mg/dL AND GREATER HIGH RISK Performed By: #### L [id number] ####[facility] (BEAKER)[address] [place] [address] 30on 08-15-2024 30 Normal [facility] 30 Normal [facility] BLOOD CULTUREon 08-15-2024 Bacteria identified Cx Nom (Bld) No growth at 5 days Normal [facility] Comment on above: Order Comment: From a different site than #1. Performed By: #### L [id number] ####[facility] (BEAKER)[address] [place] [address] Basophils Auto (Bld) [#/Vol] on 08-15-2024 Basophils (Bld) [#/Vol] Automated basoph il count 0.0-0.1 [facility] Basophils/100 WBC Auto (Bld) on 08-15-2024 Basophils/100 WBC (Bld) Automated basophil % Low 0. 2-2.0 [facility] CALCIUM, IONIZEDon CALCIUM IONIZED (MMOL/L) IN BLOOD 1.23 mmol/L Normal 1.15-1.33 [facility] Comment on above: Performed By: #### C ALCIUM, IONIZED ####[facility] RESPIRATORY [id number] [place] [address] [facility] CBC WITH AUTO DIFFERENTIALon 08-15-2024 Basophils (Bld) [#/Vol] 0.01 10*3/uL Normal 0.00-0.20 [facility] Comment on above: Performed By: #### L [id number] ####[facility] (BEAKER)[address] [place] [address] Basophils/100 WBC (Bld) 0.1 % Normal 0.0-1.0 [facility] Comment on above: Performed By: #### L [id number] ####[facility] (BEAKER)[address] [place] [address] Eosinophils (Bld) [#/Vol] 0.01 10*3/uL Normal 0.00-0.50 [facility] Comment on above: Performed By: #### L [id number] ####[facility] (BEAKER)[address] [place] [address] Eosinophils/100 WBC (Bld) 0.1 % Normal 0.0-6.0 [facility] Comment on above: Performed By: #### L [id number] ####[facility] (BEAKER)[address] [place] [address] Erythrocyte distribution width (RBC) [Ratio] 15.2 % High 11.5-15.0 [facility] Comment on above: Performed By: #### L [id number] ####[facility] (BEAKER)[address] [place] [address] ERYTHROCYTE MEAN CORPUSCULAR HEMOGLOBIN CONCENTRATION (G/DL) BY AUTOMATED 33.8 g/dL Normal 32.0-35.0 [facility] Comment on above: Performed By: #### L [id number] ####[facility] (BEAKER)[address] [place] [address] Hematocrit (Bld) [Volume fraction] 47.1 % Normal 39.0-55.0 [facility] Comment on above: Performed By: #### L [id number] ####[facility] (BEAKER)[address] [place] [address] Hemoglobin (Bld) [Mass/Vol] 15.9 g/dL Normal 13.0-17.0 [facility] Comment on above: Performed By: #### L [id number] ####[facility] (BEAKER)[address] [place] [address] Immature granulocytes (Bld) [#/Vol] 0.05 10*3/uL Normal 0.00-0.20 [facility] Comment on above: Performed By: #### L [id number] ####[facility] ([facility] [place] [address] Immature granulocytes/100 WBC (Bld) 0.7 % Normal 0.0-1.0 [facility] Comment on above: Performed By: #### L [id number] ####[facility] ([facility] [place] [address] Lymphocytes (Bld) [#/Vol] 0.54 10*3/uL Low 1.20-4.00 [facility] Comment on above: Performed By: #### L [id number] ####[facility] ([facility] [place] [address] Lymphocytes/100 WBC (Bld) 7.2 % Low 20.0-45.0 [facility] Comment on above: Performed By: #### L [id number] ####[facility] [place] [address] MCH (RBC) [Entitic mass] 31.8 pg Normal 27.0-33.0 [facility] Comment on above: Performed By: #### L [id number] ####[facility] [place] [address] MCV (RBC) [Entitic vol] 94.2 fL Normal 82.0-98.0 [facility] Comment on above: Performed By: #### L [id number] ####[facility] (BEAKER)[address] [place] [address] Monocytes (Bld) [#/Vol] 1.23 10*3/uL High 0.10-1.00 [facility] Comment on above: Performed By: #### L [id number] ####[facility] (BEAKER)[address] [place], [place] [address] Monocytes/100 WBC (Bld) 16.3 % High 5.0-12.0 [facility] Comment on above: Performed By: #### L [id number] ####[facility] (BEAKER)[address] [place], [place] [address] Neutrophils (Bld) [#/Vol] 5.70 10*3/uL Normal 1.60-7.60 [facility] Comment on above: Performed By: #### L [id number] ####[facility] (BEAKER)[address] [place], [place] [address] Neutrophils/100 WBC (Bld) 75.6 % High 40.0-72.0 [facility] Comment on above: Performed By: #### L [id number] ####[facility] ([facility] [place] [address] NRBC (PER 100 WBCS) BY AUTOMATED COUNT 0.3 % High 0 [facility] Comment on above: Performed By: #### L [id number] ####[facility] [place], [place] [address] PLATELETS (10*3/UL) IN BLOOD AUTOMATED COUNT 237 10*3/uL Normal 150-400 [facility] Comment on above: Performed By: #### L [id number] ####[facility] (BEAKER)[address] [place], [place] [address] RBC (Bld) [#/Vol] 5.00 10*6/uL Normal 4.20-5.70 [facility] Comment on above: Performed By: #### L [id number] ####[facility] (BEAKER)[address] [place], [place] [address] WBC (Bld) [#/Vol] 7.54 10*3/uL Normal 4.00-10.60 [facility] Comment on above: Performed By: #### L [id number] ####[facility] (BEAKER)[address] [place] [address] COMPREHENSIVE METABOLIC PANE Kris 08-15-2024 Albumin [Mass/Vol] 2.9 g/dL Low 3.5-5.7 [facility] Comment on above: Performed By: #### L [id number] ####[facility] (BEAKER)[address] [place] [address] ALP [Catalytic activity/Vol] 58 U/L Normal 34-104 [facility] Comment on above: Performed By: #### L [id number] ####[facility] (BEAKER)[address] [place] [address] ALT [Catalytic activity/Vol] 21 U/L Normal 7-52 [facility] Comment on above: Performed By: #### L [id number] ####[facility] (BEAKER)[address] [place] [address] Anion gap [Moles/Vol] 13 mmol/L Normal 7-20 [facility] Comment on above: Performed By: #### L [id number] ####[facility] (BEAKER)[address] [place] [address] AST [Catalytic activity/Vol] 29 U/L Normal 13-39 [facility] Comment on above: Performed By: #### L [id number] ####[facility] (BEAKER)[address] [place] [address] Bilirubin [Mass/Vol] 1.0 mg/dL Normal 0.3-1.0 [facility] Comment on above: Performed By: #### L [id number] ####[facility] (BEAKER)[address] [place] [address] Calcium [Mass/Vol] 8.2 mg/dL Low 8.6-10.3 [facility] Comment on above: Performed By: #### L [id number] ####[facility] (BEAKER)[address] [place] [address] Chloride [Moles/Vol] 90 mmol/L Low 98-107 [facility] Comment on above: Performed By: #### L [id number] ####[facility] (BEAKER)[address] [place] [address] CO2 [Moles/Vol] 32 mmol/L High 21-31 [facility] Comment on above: Performed By: #### L [id number] ####[facility] (BEAKER)[address] [place] [address] Creatinine [Mass/Vol] 1.17 mg/dL Normal 0.70-1.30 [facility] Comment on above: Performed By: #### L [id number] ####[facility] ([facility] [place] [address] GLOMERULAR FILTRATION RATE ML/MIN/1.73 SQ M.PREDICTED 69.2 mL/min/1.73m*2 Normal >60.0 [facility] Comment on above: Result Comment: [facility]???s estimated glomerular filtration rate (eGFR) [...] of individuals. Performed By: #### L [id number] ####[facility] [place] [address] Glucose [Mass/Vol] 219 mg/dL High 70-100 [facility] Comment on above: Performed By: #### L [id number] ####[facility] (BEAKER)[address] [place] [address] Potassium [Moles/Vol] 4.0 mmol/L Normal 3.5-5.1 [facility] Comment on above: Performed By: #### L [id number] ####[facility] [place] [address] Protein [Mass/Vol] 5.5 g/dL Low 6.0-8.3 [facility] Comment on above: Performed By: #### L [id number] ####[facility] ([facility] [place] [address] Sodium [Moles/Vol] 131 mmol/L Low 136-145 [facility] Comment on above: Performed By: #### L [id number] ####[facility] ([facility] [place] [place] [address] Urea nitrogen [Mass/Vol] 42 mg/dL High 7-25 [facility] Comment on above: Performed By: #### L [id number] ####[facility] ([facility] [place] [address] UREA NITROGEN/CREATININE (MASS RATIO) IN SER/PLAS 35.9 Normal [facility] Comment on above: Performed By: #### L [id number] ####[facility] ([facility] [place] [address] Eosinophils/100 WBC Auto (Bl d)on 08-15-2024 Eosinophils/100 WBC (Bld) Automated eosinophil % Low 0.9-7.0 [facility] Erythrocyte distribution wid th Auto (RBC) [Ratio]on 08-15-2024 Erythrocyte distribution width (RBC) [Ratio] Erythrocyte distribution width [Ratio] by Automated count High 11.0-15.0 [facility] Estimated glomerular filtrat ion rate (GFR) non- Americanon 08-15-2024 GFR/1.73 sq M.predicted among non-blacks MDRD (S/P/Bld) [Vol rate/Area] Estimated glomerular filtration rate (GFR) non- Low >=60 mL/min/1.73 m 2 [facility] Globulin Calc (S) [Mass/Vol] on 08-15-2024 Globulin (S) [Mass/Vol] Serum globulin measurement by calculation (mass/volume) [facility] HEMOGLOBIN A1Con 08-15-2024 Glucose [Mass/Vol] 189 mg/dL Normal [facility] Comment on above: Performed By: #### L [id number] ####[facility] [place] [address] HbA1c (Bld) [Mass fraction] 8.2 % High 4.0-6.0 [facility] Comment on above: Performed By: #### L [id number] ####[facility] ([facility] [place] [address] HPon 08-15-2024 HP Normal [facility] Hematocrit Auto (Bld) [Volum e fraction]on 08-15-2024 Hematocrit (Bld) [Volume fraction] Hematocrit [Volume Fraction] of Blood by Automated count 42.0-54.0 [facility] Hemoglobin [Mass/volume] in Bloodon 08-15-2024 Hemoglobin (Bld) [Mass/Vol] Hemoglobin [Mass/volume] in Blood 14.0-18.0 [facility] LIPASEon 08-15-2024 LIPASE (U/L) IN SER/PLAS 28 U/L Normal 11-82 [facility] Comment on above: Result Comment: M-CH EMISTRY SPECIMEN MODERATELY HEMOLYZED RESULTS MAY NOT BE ACCURATE Performed By: #### L [id number] ####[facility] ([facility] [place] [address] Laboratory - Chemistry and C hemistry - challengeon 08-15-2024 HCO3 (Bld) [Moles/Vol] 34.7 mmol/L High 22.0-26.0 F [facility] Albumin [Mass/Vol] 2.6 g/dL Low 3.4-5.0 [facility] ALP [Catalytic activity/Vol] 81 U/L 46-116 [facility] ALT [Catalytic activity/Vol] 37 U/L 16-63 [facility] AST [Catalytic activity/Vol] 28 U/L 15-37 [facility] Bilirubin [Mass/Vol] 1.2 mg/dL High 0.2-1.0 [facility] Calcium [Mass/Vol] 9.2 mg/dL 8.5-10.1 [facility] Chloride [Moles/Vol] 101 mmol/L 98-107 [facility] CO2 [Moles/Vol] 35.4 mmol/L High 21.0-32.0 [facility] Creatinine [Mass/Vol] 1.66 mg/dL High 0.70-1.30 [facility] GFR/1.73 sq M.predicted MDRD (S/P/Bld) [Vol rate/Area] 51 mL/min/{1.73_m2} Low >=60 mL/min/1.73 m 2 [facility] Glucose [Mass/Vol] 268 mg/dL High 74-106 [facility] Potassium [Moles/Vol] 3.8 mmol/L 3.5-5.1 [facility] Protein [Mass/Vol] 6.3 g/dL Low 6.4-8.2 [facility] Sodium [Moles/Vol] 143 mmol/L 136-145 [facility] Urea nitrogen [Mass/Vol] 52.0 mg/dL High 7.0-18.0 [facility] Urea nitrogen/Creatinine [Mass ratio] 31.3 mg/mg [facility] Laboratory - Hematology and Cell countson 08-15-2024 Immature granulocytes/100 WBC (Bld) 0.8 % High 0.0-0.5 [facility] Leukocytes [#/volume] correc beatris for nucleated erythrocytes in Blood by Automated counon 08-15-2024 WBC corrected for nucl RBC Auto (Bld) [#/Vol] Leukocytes [#/volume] corrected for nucleated erythrocytes in Blood by Automated coun 4.0-11.0 [facility] Lymphocytes Auto (Bld) [#/Vo l]on 08-15-2024 Lymphocytes (Bld) [#/Vol] Lymphocytes [#/volume] in Blood by Automated count Low 1.2-3.8 [facility] Lymphocytes/100 WBC Auto (Bl d)on 08-15-2024 Lymphocytes/100 WBC (Bld) Lymphocytes/100 leukocytes in Blood by Automated count Low 20.5-60.0 [facility] MAGNESIUMon 08-15-2024 Magnesium [Mass/Vol] 1.6 mg/dL Low 1.9-2.7 [facility] Comment on above: Performed By: #### L [id number] ####[facility] (BEAKER)[address] [place] [address] MCH Auto (RBC) [Entitic mass ]on 08-15-2024 MCH (RBC) [Entitic mass] MCH [Entitic ma ss] by Automated count 25.9-34.0 [facility] MCHC Auto (RBC) [Mass/Vol]on 08-15-2024 MCHC (RBC) [Mass/Vol] MCHC [Mass/volume] by Automated count 29.9-35.2 [facility] MCV Auto (RBC) [Entitic vol] on 08-15-2024 MCV (RBC) [Entitic vol] MCV [Entitic vol ume] by Automated count 80.0-94.0 [facility] MRSA/MSSA DNA NASALon 2024 MRSA DNA Negative Normal Negative [facility] Comment on above: Order Comment: [...] preclude nasal colonization. Performed By: #### L [id number] ####[facility] (BEAKER)[address] [place] [address] MSSA DNA Negative Normal Negative [facility] Comment on above: Order Comment: [...] preclude nasal colonization. Performed By: #### L [id number] ####[facility] (BEAKER)[address] [place] [address] Monocytes Auto (Bld) [#/Vol] on 08-15-2024 Monocytes (Bld) [#/Vol] Automated blood monocyte count 0.3-0.8 [facility] Monocytes/100 WBC Auto (Bld) on 08-15-2024 Monocytes/100 WBC (Bld) Automated monocyte % 1. 7-12.0 [facility] Neutrophils Auto (Bld) [#/Vo l]on 08-15-2024 Neutrophils (Bld) [#/Vol] Neutrophils [#/volume] in Blood by Automated count 1.4-6.5 [facility] Neutrophils/100 WBC Auto (Bl d)on 08-15-2024 Neutrophils/100 WBC (Bld) Automated neutrophil % High 43.0-75.0 [facility] No Panel Informationon 08-15 Avinash Test Positive POSITIVE [facility] Arterial Blood Base Excess 11.0 mmol/L High <2.0-2.0 [facility] Arterial Blood Oxygen Saturation 97.0 % [facility] Arterial Blood Partial Pressure CO2 47.8 mm[Hg] High 35.0-45.0 [facility] Arterial Blood Partial Pressure O2 81.0 mm[Hg] 80.0-100.0 [facility] Arterial Blood pH 7.469 High 7.350-7.450 [facility] Blood Gas PEEP 8 [facility] Blood Gas Sample Site RIGHT RADIAL F [facility] Blood Gas Set Respiration Rate 22 [facility] Blood Gas Tidal Volume 600 [facility] Blood Gas Ventilator Mode AC/VC [facility] FiO2 90 % [facility] Oxygen Delivery Device VENT [facility] Reference Lab Test #2 Result 13.8 [facility] Eosinophils # (Auto) 0.0 10 3/uL 0.0-0.7 [facility] Immature Granulocyte # (Auto) 0.06 10 3/uL High 0.00-0.03 [facility] PHOSPHORUSon 08-15-2024 Magnesium [Mass/Vol] 2.7 mg/dL Normal 2.5-5.0 [facility] Comment on above: Performed By: #### L [id number] ####[facility] (BEAKER)[address] [place] [address] POCT GLUCOSE METER UNSOLICIT ED RESULTSon 08-15-2024 Glucose [Mass/Vol] 249 mg/dL High 70-105 [facility] Comment on above: Order Comment: Waive d Testing in the ED is performed under the ED CLIA certificate #[id number]. Result Comment: oyod er Performed By: #### L [id number] ####[facility] (BEAKER)[address] [place] [address] Glucose [Mass/Vol] 217 mg/dL High 70-105 [facility] Comment on above: Order Comment: Waive d Testing in the ED is performed under the ED CLIA certificate #[id number]. Result Comment: bmen [email or web address] Performed By: #### L [id number] ####[facility] (BEAKER)[address] [place] [address] Glucose [Mass/Vol] 233 mg/dL High 70-105 [facility] Comment on above: Order Comment: Waive d Testing in the ED is performed under the ED CLIA certificate #[id number]. Result Comment: bmen [email or web address] Performed By: #### L [id number] ####[facility] (BEAKER)[address] [place] [address] POTASSIUM, WHOLE BLOODon Potassium [Moles/Vol] 3.4 mmol/L Low 3.5-5.1 [facility] Comment on above: Performed By: #### P OTASSIUM, WHOLE BLOOD ####[facility] RESPIRATORY [id number] [place] [address] [place] Platelet mean volume Auto (B ld) [Entitic vol]on 08-15-2024 Platelet mean volume (Bld) [Entitic vol] Platelet mean volume [Entitic volume] in Blood by Automated count 9.5-13.5 [facility] Platelets Auto (Bld) [#/Vol] on 08-15-2024 Platelets (Bld) [#/Vol] Platelets [#/vol ume] in Blood by Automated count 150-450 [facility] RBC Auto (Bld) [#/Vol]on RBC (Bld) [#/Vol] Erythrocytes [#/volume] in Blood by Automated count 4.70-6.10 [facility] SODIUM, WHOLE BLOODon 2024 SODIUM, WHOLE BLOOD 136 Normal 136-145 [facility] Comment on above: Performed By: #### S ODIUM, WHOLE BLOOD ####[facility] RESPIRATORY [id number] [place] [address] [place] Serum or plasma albumin/glob ulin mass ratioon 08-15-2024 Albumin/Globulin [Mass ratio] Serum or plasma albumin/globulin mass ratio [facility] Serum or plasma anion gap de terminationon 08-15-2024 Anion gap [Moles/Vol] Serum or plasma an ion gap determination [facility] TRIGLYCERIDESon 08-15-2024 FASTING? unknown Normal [facility] Comment on above: Order Comment: Monit or triglycerides while patient is on propofol. Consult Nutrition if greater than 500 mg/dL. Performed By: #### L [id number] ####[facility] ([place])[address] [place] [address] Magnesium [Mass/Vol] 3920 mg/dL High 40-149 [facility] Comment on above: Order Comment: Monit or triglycerides while patient is on propofol. Consult Nutrition if greater than 500 mg/dL. Result Comment: TRIG LYCERIDE REFERENCE RANGE:20 YEARS AND OLDER CARDIOVASCULAR RISKLESS THAN 150 mg/dL LOW [id number] TO 199 mg/dL BORDERLINE [id number] mg/dL AND GREATER HIGH RISK Performed By: #### L [id number] ####[facility] ([place])[address] [place] [address] TROPONIN Ion 08-15-2024 Troponin I.cardiac [Mass/Vol] 0.04 ng/mL Normal 0.00-0.04 [facility] Comment on above: Performed By: #### L [id number] ####[facility] ([facility])[address] [place] [address] URINALYSIS WITH MICROSCOPICo n 08-15-2024 BILIRUBIN, TOTAL PRESENCE IN URINE Negative Normal Negative [facility] Comment on above: Performed By: #### L [id number] ####[facility] ([facility]AK[facility])[address] [place] [address] Clarity (U) Clear Normal Clear [facility] Comment on above: Performed By: #### L [id number] ####[facility] ([facility]AKER)[address] [place] [address] Color (U) Colorless Normal Colorless, Yellow, Light-Yello w [facility] Comment on above: Performed By: #### L [id number] ####[facility] [place] [address] GLUCOSE (MG/DL) IN URINE Normal Normal Normal [facility] [facility] Comment on above: Performed By: #### L [id number] ####[facility] ([facility] [place] [address] HEMOGLOBIN PRESENCE IN URINE Small Abnormal Negative [facility] Comment on above: Performed By: #### L [id number] ####[facility] ([facility] [place] [address] Ketones Ql (U) Negative Normal Negative [facility] Comment on above: Performed By: #### L [id number] ####[facility] ([facility] [place] [address] LEUKOCYTE ESTERASE PRESENCE IN URINE BY TEST STRIP Negative Normal Negative [facility] Comment on above: Performed By: #### L [id number] ####[facility] ([facility] [place] [address] MUCUS (#/LPF) IN URINE SEDIMENT Occasional Normal None Seen, Occasional, Few [facility] Comment on above: Performed By: #### L [id number] ####[facility] (BEAKER)[address] [place] [address] NITRITE PRESENCE IN URINE Negative Normal Negative [facility] Comment on above: Performed By: #### L [id number] ####[facility] (BEAKER)[address] [place] [address] pH (U) 5.5 [pH] Normal 5.0-8.0 [facility] Comment on above: Performed By: #### L [id number] ####[facility] ([facility]AKER)[address] [place] [address] Protein (U) [Mass/Vol] Negative Normal [facility] on above: Performed By: #### L [id number] ####[facility] (BEAKER)[address] [place] [address] RBC (#/HPF) IN URINE SEDIMENT 11-20 Abnormal None Seen, 0-2 [facility] Comment on above: Performed By: #### L [id number] ####[facility] (BEAKER)[address] [place] [address] Specific gravity (U) [Rel density] 1.011 Normal 1.010-1.030 [facility] Comment on above: Performed By: #### L [id number] ####[facility] (BEAKER)[address] [place] [address] SQUAMOUS EPITHELIAL CELLS (#/LPF) IN URINE SEDIMENT None Seen Normal None Seen, Occasional, Few [facility] Comment on above: Performed By: #### L [id number] ####[facility] (BEAKER)[address] [place] [address] UROBILINOGEN (MG/DL) IN URINE Normal Normal Normal [facility] Comment on above: Performed By: #### L [id number] ####[facility] (BEAKER)[address] [place] [address] WBC (LEUKOCYTE) (#/HPF) IN URINE SEDIMENT 3-5 Abnormal None Seen, 0-2 [facility] Comment on above: Performed By: #### L [id number] ####[facility] (BEAKER)[address] [place] [address] Basophils Auto (Bld) [#/Vol] on 08-14-2024 Basophils (Bld) [#/Vol] Automated basoph il count 0.0-0.1 [facility] Basophils/100 WBC Auto (Bld) on 08-14-2024 Basophils/100 WBC (Bld) Automated basophil % 0. 2-2.0 [facility] Eosinophils/100 WBC Auto (Bl d)on 08-14-2024 Eosinophils/100 WBC (Bld) Automated eosinophil % Low 0.9-7.0 [facility] Erythrocyte distribution wid th Auto (RBC) [Ratio]on 08-14-2024 Erythrocyte distribution width (RBC) [Ratio] Erythrocyte distribution width [Ratio] by Automated count High 11.0-15.0 [facility] Estimated glomerular filtrat ion rate (GFR) non- Americanon 08-14-2024 GFR/1.73 sq M.predicted among non-blacks MDRD (S/P/Bld) [Vol rate/Area] Estimated glomerular filtration rate (GFR) non- Low >=60 mL/min/1.73 m 2 [facility] Globulin Calc (S) [Mass/Vol] on 08-14-2024 Globulin (S) [Mass/Vol] Serum globulin measurement by calculation (mass/volume) [facility] Hematocrit Auto (Bld) [Volum e fraction]on 08-14-2024 Hematocrit (Bld) [Volume fraction] Hematocrit [Volume Fraction] of Blood by Automated count 42.0-54.0 [facility] Hemoglobin [Mass/volume] in Bloodon 08-14-2024 Hemoglobin (Bld) [Mass/Vol] Hemoglobin [Mass/volume] in Blood 14.0-18.0 [facility] Laboratory - Chemistry and C hemistry - challengeon 08-14-2024 HCO3 (Bld) [Moles/Vol] 30.8 mmol/L High 22.0-26.0 [facility] Albumin [Mass/Vol] 2.4 g/dL Low 3.4-5.0 [facility] ALP [Catalytic activity/Vol] 82 U/L 46-116 [facility] ALT [Catalytic activity/Vol] 39 U/L 16-63 [facility] AST [Catalytic activity/Vol] 24 U/L 15-37 [facility] Bilirubin [Mass/Vol] 1.1 mg/dL High 0.2-1.0 [facility] Calcium [Mass/Vol] 8.6 mg/dL 8.5-10.1 [facility] Chloride [Moles/Vol] 102 mmol/L 98-107 [facility] CO2 [Moles/Vol] 32.4 mmol/L High 21.0-32.0 [facility] Creatinine [Mass/Vol] 1.64 mg/dL High 0.70-1.30 [facility] GFR/1.73 sq M.predicted MDRD (S/P/Bld) [Vol rate/Area] 51 mL/min/{1.73_m2} Low >=60 mL/min/1.73 m 2 [facility] Glucose [Mass/Vol] 194 mg/dL High 74-106 [facility] Potassium [Moles/Vol] 3.9 mmol/L 3.5-5.1 [facility] Protein [Mass/Vol] 5.8 g/dL Low 6.4-8.2 [facility] Sodium [Moles/Vol] 140 mmol/L 136-145 [facility] Urea nitrogen [Mass/Vol] 54.0 mg/dL High 7.0-18.0 [facility] Urea nitrogen/Creatinine [Mass ratio] 32.9 mg/mg [facility] Laboratory - Hematology and Cell countson 08-14-2024 Immature granulocytes/100 WBC (Bld) 0.8 % High 0.0-0.5 [facility] Leukocytes [#/volume] correc beatris for nucleated erythrocytes in Blood by Automated counon 08-14-2024 WBC corrected for nucl RBC Auto (Bld) [#/Vol] Leukocytes [#/volume] corrected for nucleated erythrocytes in Blood by Automated coun 4.0-11.0 [facility] Lymphocytes Auto (Bld) [#/Vo l]on 08-14-2024 Lymphocytes (Bld) [#/Vol] Lymphocytes [#/volume] in Blood by Automated count Low 1.2-3.8 [facility] Lymphocytes/100 WBC Auto (Bl d)on 08-14-2024 Lymphocytes/100 WBC (Bld) Lymphocytes/100 leukocytes in Blood by Automated count Low 20.5-60.0 [facility] MCH Auto (RBC) [Entitic mass ]on 08-14-2024 MCH (RBC) [Entitic mass] MCH [Entitic ma ss] by Automated count 25.9-34.0 [facility] MCHC Auto (RBC) [Mass/Vol]on 08-14-2024 MCHC (RBC) [Mass/Vol] MCHC [Mass/volume] by Automated count 29.9-35.2 [facility] MCV Auto (RBC) [Entitic vol] on 08-14-2024 MCV (RBC) [Entitic vol] MCV [Entitic vol ume] by Automated count High 80.0-94.0 [facility] Monocytes Auto (Bld) [#/Vol] on 08-14-2024 Monocytes (Bld) [#/Vol] Automated blood monocyte count 0.3-0.8 [facility] Monocytes/100 WBC Auto (Bld) on 08-14-2024 Monocytes/100 WBC (Bld) Automated monocyte % 1. 7-12.0 [facility] Neutrophils Auto (Bld) [#/Vo l]on 08-14-2024 Neutrophils (Bld) [#/Vol] Neutrophils [#/volume] in Blood by Automated count 1.4-6.5 [facility] Neutrophils/100 WBC Auto (Bl d)on 08-14-2024 Neutrophils/100 WBC (Bld) Automated neutrophil % High 43.0-75.0 [facility] No Panel Informationon 08-14 Avinash Test Positive POSITIVE [facility] Arterial Blood Base Excess 6.2 mmol/L High <2.0-2.0 [facility] Arterial Blood Oxygen Saturation 93.3 % [facility] Arterial Blood Partial Pressure CO2 48.3 mm[Hg] High 35.0-45.0 [facility] Arterial Blood Partial Pressure O2 62.0 mm[Hg] Low 80.0-100.0 [facility] Arterial Blood pH 7.413 7.350-7.450 [facility] Blood Gas PEEP +8 [facility] Blood Gas Sample Site RIGHT RADIAL [facility] Blood Gas Set Respiration Rate 22 [facility] Blood Gas Tidal Volume 600 [facility] Blood Gas Ventilator Mode AC [facility] FiO2 100 % [facility] Oxygen Delivery Device VENT [facility] Eosinophils # (Auto) 0.0 10 3/uL 0.0-0.7 [facility] Immature Granulocyte # (Auto) 0.05 10 3/uL High 0.00-0.03 [facility] Platelet mean volume Auto (B ld) [Entitic vol]on 08-14-2024 Platelet mean volume (Bld) [Entitic vol] Platelet mean volume [Entitic volume] in Blood by Automated count 9.5-13.5 [facility] Platelets Auto (Bld) [#/Vol] on 08-14-2024 Platelets (Bld) [#/Vol] Platelets [#/vol ume] in Blood by Automated count 150-450 [facility] RBC Auto (Bld) [#/Vol]on RBC (Bld) [#/Vol] Erythrocytes [#/volume] in Blood by Automated count 4.70-6.10 [facility] Serum or plasma albumin/glob ulin mass ratioon 08-14-2024 Albumin/Globulin [Mass ratio] Serum or plasma albumin/globulin mass ratio [facility] Serum or plasma anion gap de terminationon 08-14-2024 Anion gap [Moles/Vol] Serum or plasma an ion gap determination [facility] URINE CULTURE, ROUTINEon Bacteria identified Cx Nom (U) Urine Culture, Routine [facility] Bacteria identified Cx Nom (U) No growth [facility] Bacteria identified Cx Nom (U) Performed at: [facility] Bacteria identified Cx Nom (U) [address], [place] [id number] [facility] Bacteria identified Cx Nom (U) Analytical Lab Analyst: Tyron Saeed PhD, Phone: [phone] [facility] Basophils Auto (Bld) [#/Vol] on 04-08-2024 Basophils (Bld) [#/Vol] 0.1 10 3/uL 0.0-0.1 [facility] Basophils/100 WBC Auto (Bld) on 04-08-2024 Basophils/100 WBC (Bld) 0.4 % 0.2-2.0 [facility] Eosinophils/100 WBC Auto (Bl d)on 04-08-2024 Eosinophils/100 WBC (Bld) 1.7 % 0.9-7.0 [facility] Erythrocyte distribution wid th Auto (RBC) [Ratio]on 04-08-2024 Erythrocyte distribution width (RBC) [Ratio] 13.9 % 11.0-15.0 [facility] Estimated glomerular filtrat ion rate (GFR) non- Americanon 04-08-2024 GFR/1.73 sq M.predicted among non-blacks MDRD (S/P/Bld) [Vol rate/Area] mL/min/{1.73_m2} >=60 [facility] Hematocrit Auto (Bld) [Volum e fraction]on 04-08-2024 Hematocrit (Bld) [Volume fraction] 45.1 % 42.0-54.0 [facility] Hemoglobin [Mass/volume] in Bloodon 04-08-2024 Hemoglobin (Bld) [Mass/Vol] 14.7 g/dL 14.0-18.0 [facility] Laboratory - Chemistry and C hemistry - challengeon 04-08-2024 Calcium [Mass/Vol] 10.6 mg/dL High 8.5-10.1 [facility] Chloride [Moles/Vol] 98 mmol/L 98-107 [facility] CO2 [Moles/Vol] 34.6 mmol/L High 21.0-32.0 [facility] Creatinine [Mass/Vol] 1.03 mg/dL 0.70-1.30 [facility] GFR/1.73 sq M.predicted MDRD (S/P/Bld) [Vol rate/Area] mL/min/{1.73_m2} >=60 [facility] Glucose [Mass/Vol] 178 mg/dL High 74-106 [facility] Potassium [Moles/Vol] 4.4 mmol/L 3.5-5.1 [facility] Sodium [Moles/Vol] 135 mmol/L Low 136-145 [facility] Urea nitrogen [Mass/Vol] 16.0 mg/dL 7.0-18.0 [facility] Urea nitrogen/Creatinine [Mass ratio] 15.5 mg/mg [facility] Laboratory - Hematology and Cell countson 04-08-2024 Immature granulocytes/100 WBC (Bld) 1.1 % High 0.0-0.5 [facility] Leukocytes [#/volume] correc beatris for nucleated erythrocytes in Blood by Automated counon 04-08-2024 WBC corrected for nucl RBC Auto (Bld) [#/Vol] 13.3 10 3/uL High 4.0-11.0 [facility] Lymphocytes Auto (Bld) [#/Vo l]on 04-08-2024 Lymphocytes (Bld) [#/Vol] 1.7 10 3/uL 1.2-3.8 [facility] Lymphocytes/100 WBC Auto (Bl d)on 04-08-2024 Lymphocytes/100 WBC (Bld) 12.5 % Low 20.5-60.0 [facility] MCH Auto (RBC) [Entitic mass ]on 04-08-2024 MCH (RBC) [Entitic mass] 31.1 pg 25.9-34.0 [facility] MCHC Auto (RBC) [Mass/Vol]on 04-08-2024 MCHC (RBC) [Mass/Vol] 32.6 g/dL 29.9-35.2 [facility] MCV Auto (RBC) [Entitic vol] on 04-08-2024 MCV (RBC) [Entitic vol] 95.6 fL High 80.0-94.0 [facility] Monocytes Auto (Bld) [#/Vol] on 04-08-2024 Monocytes (Bld) [#/Vol] 1.0 10 3/uL High 0.3-0.8 [facility] Monocytes/100 WBC Auto (Bld) on 04-08-2024 Monocytes/100 WBC (Bld) 7.3 % 1.7-12.0 [facility] Neutrophils Auto (Bld) [#/Vo l]on 04-08-2024 Neutrophils (Bld) [#/Vol] 10.3 10 3/uL High 1.4-6.5 [facility] Neutrophils/100 WBC Auto (Bl d)on 04-08-2024 Neutrophils/100 WBC (Bld) 77.0 % High 43.0-75.0 [facility] No Panel InformationOrdered By: Rc Curtis on 04-08-2024 Acid Fast Smear [facility] AFB Specimen Processing [facility] Anaerobic Cult, Extended Incub [facility] Tissue Culture [facility] No Panel Informationon 04-08 Fungal Smear Result \R\ Fungus Stain [facility] Gram Stain Result 1 \R\ Gram Stain Result [facility] Miscellaneous Test Comment See comment [facility] Comment on above: Specimen Source: ELENA TRT - Foot Right - Foot Rt - 604.000 Eosinophils # (Auto) 0.2 10 3/uL 0.0-0.7 [facility] Immature Granulocyte # (Auto) 0.15 10 3/uL High 0.00-0.03 [facility] Platelet mean volume Auto (B ld) [Entitic vol]on 04-08-2024 Platelet mean volume (Bld) [Entitic vol] 9.8 fL 9.5-13.5 [facility] Platelets Auto (Bld) [#/Vol] on 04-08-2024 Platelets (Bld) [#/Vol] 482 10 3/uL High 150-450 [facility] RBC Auto (Bld) [#/Vol]on RBC (Bld) [#/Vol] 4.72 10 6/uL 4.70-6.10 [facility] Serum or plasma anion gap de terminationon 04-08-2024 Anion gap [Moles/Vol] 6.8 mmol/L [facility] ALL CBC WITH AUTO DIFFon BASOPHILS ABSOLUTE AUTO 0.1 [facility] Basophils/100 WBC (Bld) 0.6 % 0.2 - 2.0 % [facility] Eosinophils/100 WBC (Bld) 2.1 % 0.9 - 7.0 % [facility] Erythrocyte distribution width (RBC) [Ratio] 14.0 % 11.0 - 15.0 % [facility] Hematocrit (Bld) [Volume fraction] 41.9 % Low 42.0 - 54.0 % [facility] Hemoglobin (Bld) [Mass/Vol] 13.7 g/dL Low 14.0 - 18.0 g/dL [facility] IMMATURE GRANULOCYTES ABS AUTO 0.46 High [facility] Immature granulocytes/100 WBC (Bld) 2.9 % High 0.0 - 0.5 % [facility] Interpretation and review of laboratory results Abnormal [facility] LYMPHOCYTES ABSOLUTE AUTO 2.3 [facility] Lymphocytes/100 WBC (Bld) 14.7 % Low 20.5 - 60.0 % [facility] MCH (RBC) [Entitic mass] 31.5 pg 25. 9 - 34.0 pg [facility] MCHC (RBC) [Mass/Vol] 32.7 g/dL 29.9 - 35.2 g/dL [facility] MCV (RBC) [Entitic vol] 96.3 fL High 80.0 - 94.0 fL [facility] MONOCYTES ABSOLUTE AUTO 1.2 High [facility] Monocytes/100 WBC (Bld) 7.8 % 1.7 - 12.0 % [facility] NEUTROPHILS ABSOLUTE AUTO 11.4 High [facility] Neutrophils/100 WBC (Bld) 71.9 % 43.0 - 75.0 % [facility] Platelet mean volume (Bld) [Entitic vol] 10.2 fL 9.5 - 13.5 fL [facility] TBH EO # 0.3 [facility] TBH PLT 475 High [facility] TB RBC 4.35 Low [facility] TB WBC 15.8 High [facility] XR FOOT LT MIN 3 VIEWSon XR [...] Sukhdev PARKS Date: 2022-07-14 23:08 Normal [facility] GLYCOHEMOGLOBIN A1Con 2021 ADA RECOMMENDATION SEE BELOW Normal [facility] Comment on above: Result Comment: ADA RECOMMENDED LIMIT 4.0 - 6.0 ADA THERAPEUTIC TARGET < 7.0 ACTION SUGGESTED > 7.0 Performed By: #### A 1C #### [facility] [address] [place] [address] Dr. Jennifer Zamora Glucose [Mass/Vol] 212 mg/dL Normal [facility] Comment on above: Performed By: #### A 1C #### [facility] [address] [place] [address] Dr. Jennifer Zamora HbA1c (Bld) [Mass fraction] 9.0 % Critically high 4.5-6.2 [facility] Comment on above: Performed By: #### A 1C #### [facility] [address] [place] [address] Dr. Jennifer Zamora PROF 14(COMP METB)on 022 Albumin [Mass/Vol] 3.4 g/dL Normal 3.4-5.0 [facility] Comment on above: Performed By: #### C MP #### [facility] [address] [place] [address] Dr. Jennifer Zamora Albumin/Globulin [Mass ratio] 0.9 {ratio} Normal [facility] Comment on above: Performed By: #### C MP #### [facility] [address] [place] [address] Dr. Jennifer Zamora ALP [Catalytic activity/Vol] 108 U/L Normal 46-116 [facility] Comment on above: Performed By: #### C MP #### [facility] [address] [place] [address] Dr. Jennifer Zamora ALT [Catalytic activity/Vol] 35 U/L Normal 16-63 [facility] Comment on above: Performed By: #### C MP #### [facility] [address] [place] [address] Dr. Jennifer Zaomra Anion gap [Moles/Vol] 7.0 mmol/L Normal [facility] Comment on above: Performed By: #### C MP #### [facility] [address] [place] [address] Dr. Jennifer Zamora AST [Catalytic activity/Vol] 11 U/L Critically low 15-37 [facility] Comment on above: Performed By: #### C MP #### [facility] [address] [place] [address] Dr. Jennifer Zamora Bilirubin [Mass/Vol] 0.7 mg/dL Normal 0.2-1.0 [facility] Comment on above: Performed By: #### C MP #### [facility] [address] [place] [address] Dr. Jennifer Zamora Calcium [Mass/Vol] 8.9 mg/dL Normal 8.5-10.1 [facility] Comment on above: Performed By: #### C MP #### [facility] [address] [address] [address] Jennifer Zamora Chloride [Moles/Vol] 100 mmol/L Normal 98-107 [facility] Comment on above: Performed By: #### C MP #### [facility] [address] [place] [address] Dr. Jennifer Zamora CO2 [Moles/Vol] 32.5 mmol/L Critically high 21.0-32.0 [facility] Comment on above: Performed By: #### C MP #### [facility] [address] [place] [address] Dr. Jennifer Zamora Creatinine [Mass/Vol] 1.05 mg/dL Normal 0.70-1.30 [facility] Comment on above: Performed By: #### C MP #### [facility] [address] [place] [address] Dr. Jennifer Zamora EGFR-AF NIGERIAN >60 Normal >=60 [facility] Comment on above: Performed By: #### C MP #### [facility] [address] [place] [address] Dr. Jennifer Zamora EGFR-NON AF NIGERIAN >60 Normal >=60 [facility] Comment on above: Performed By: #### C MP #### [facility] [address] [place] [address] Dr. Jennifer Zamora Globulin (S) [Mass/Vol] 3.7 g/dL Normal [facility] Comment on above: Performed By: #### C MP #### [facility] [address] [place] [address] Dr. Jennifer Zamora Glucose [Mass/Vol] 175 mg/dL Critically high 74-106 [facility] Comment on above: Performed By: #### C MP #### [facility] [address] [address] [address] Jennifer Zamora Potassium [Moles/Vol] 4.5 mmol/L Normal 3.5-5.1 [facility] Comment on above: Performed By: #### C MP #### [facility] [address] [address] [address] Jennifer Zamora Protein [Mass/Vol] 7.1 g/dL Normal 6.4-8.2 [facility] Comment on above: Performed By: #### C MP #### [facility] [address] [address] [address] Jennifer Zamora Sodium [Moles/Vol] 135 mmol/L Critically low 136-145 [facility] Comment on above: Performed By: #### C MP #### [facility] [address] [address] [address] Jennifer Zamora Urea nitrogen [Mass/Vol] 18.0 mg/dL Normal 7.0-18.0 [facility] Comment on above: Performed By: #### C MP #### [facility] [address] [address] [address] Jennifer Zamora Urea nitrogen/Creatinine [Mass ratio] 17.1 mg/mg Normal [facility] Comment on above: Performed By: #### C MP #### [facility] [address] [address] [address] Jennifer Zamora Vital Signs Date Time Vital Sign Value Performing Clinician Keyona bobo 02-01-2025 14:09040 Body height 180.34 cm Dara Eisenberg APRN Work Phone: [facility] 02-01-2025 14:090400 Body mass index (BMI) [Ratio] 41.7 kg/m2 Dara Eisenberg APRN Work Phone: [facility] 02-01-2025 14:090400 Body temperature 96.5 [degF] Dara Eisenberg APRN Work Phone: [facility] 02-01-2025 14:090400 Body weight 135.62 kg Dara Faina CRACKING AND FANNING MACHINE OPERATOR Work Phone: [facility] 02-01-2025 14:09-0400 Diastolic blood pressure 68 mm[Hg] Dara Faina CRACKING AND FANNING MACHINE OPERATOR Work Phone: [facility] 02-01-2025 14:09-0400 Heart rate 102 /min Dara Faina CRACKING AND FANNING MACHINE OPERATOR Work Phone: [facility] 02-01-2025 14:09-0400 SaO2% (BldA) [Mass fraction] 96 % Dara Eisenberg CRACKING AND FANNING MACHINE OPERATOR Work Phone: [facility] 02-01-2025 14:09-0400 Systolic blood pressure 114 mm[Hg] Dara Faina CRACKING AND FANNING MACHINE OPERATOR Work Phone: [facility] 11-05-2024 10:26-0400 Body height 180.34 cm [facility] 11-05-2024 10:26-0400 Body mass index (BMI) [Ratio] 44.7 kg/m2 [facility] 11-05-2024 10:26-0400 Body weight 145.6 kg [facility] 11-05-2024 10:26-0400 Diastolic blood pressure 68 mm[Hg] [facility] 11-05-2024 10:26-0400 Heart rate 98 /min [facility] 11-05-2024 10:26-0400 Respiratory rate 14 /min [facility] 11-05-2024 10:26-0400 SaO2% (BldA) [Mass fraction] 90 % [facility] 11-05-2024 10:26-0400 Systolic blood pressure 128 mm[Hg] [facility] 05-03-2024 14:14-0400 Body height 180.34 cm ROWDY Eisenberg Work Phone: [facility] 05-03-2024 14:14-0400 Body mass index (BMI) [Ratio] 39.3 kg/m2 CRACKING AND FANNING MACHINE OPERATORFauzia Eisenberg Work Phone: [facility] 05-03-2024 14:14-0400 Body temperature 96.9 [degF] CRACKING AND FANNING MACHINE OPERATORFauzia Robbr Work Phone: [facility] 05-03-2024 14:14-0400 Body weight 128 kg [employer]ACKING AND FANNING MACHINE OPERATORFauzia Eisenberg Work Phone: [facility] 05-03-2024 14:14-0400 Diastolic blood pressure 86 mm[Hg] CRACKING AND FANNING MACHINE OPERATORFauzia Eisenberg Work Phone: [facility] 05-03-2024 14:14-0400 Heart rate 108 /min CRACKING AND FANNING MACHINE OPERATORFauzia Eisenberg Work Phone: [facility] 05-03-2024 14:14-0400 SaO2% (BldA) [Mass fraction] 92 % CRACKING AND FANNING MACHINE OPERATORFauzia Eisenberg Work Phone: [facility] 05-03-2024 14:14-0400 Systolic blood pressure 142 mm[Hg] CRACKING AND FANNING MACHINE OPERATORFauzia Eisenberg Work Phone: [facility] 04-05-2024 13:44-0400 Body height 180.34 cm DPM Rc Alstonesperanza Work Phone: [facility] [facility] 04-05-2024 13:44-0400 Body mass index (BMI) [Ratio] 39.6 kg/m2 DPM cR Curtis Work Phone: [facility] 04-05-2024 13:44-0400 Body temperature 97.4 [degF] DPM Rc Curtis Work Phone: [facility] 04-05-2024 13:44-0400 Body weight 128.82 kg DPSima Curtis Work Phone: [facility] 04-05-2024 13:44-0400 Diastolic blood pressure 70 mm[Hg] DPSima Curtis Work Phone: [facility] 04-05-2024 13:44-0400 Heart rate 61 /min DPM Rc Curtis Work Phone: [facility] 04-05-2024 13:44-0400 SaO2% (BldA) [Mass fraction] 87 % DPSima Curtis Work Phone: [facility] 04-05-2024 13:44-0400 Systolic blood pressure 134 mm[Hg] DPM Rc Curtis Work Phone: [facility] Encounters Encounter Date Encounter Type Care Provider Facility Start: 04-05-2025 End: 04-05-2025 ambulatory Dara Eisenberg APRN Work Phone: [facility] Work Phone: Start: 04-05-2025 End: 04-05-2025 Departed Referred Coco Starr MD -[facility] Start: 04-05-2025 Non-patient / Non-visit Erendira Richard MD -[facility] Work Phone: Start: 02-15-2025 ambulatory ACNP Helen Gaston Rand lity:[facility] Start: 02-01-2025 End: 02-01-2025 ambulatory Dara Eisenberg APRN Work Phone: [facility] Work Phone: Start: 02-01-2025 End: 02-01-2025 Patient encounter procedure Dara Eisenberg APRN [facility] Work Phone: Start: 01-27-2025 Non-patient / Non-visit Angelic Blevins [facility] Work Phone: Start: 01-24-2025 End: 01-26-2025 Evaluation and management of inpatient Ghassan Ding Facility:[facility] Start: 01-24-2025 Emergency department patient visit Manuel Fletcher Facility:[facility] Start: 11-05-2024 End: 11-05-2024 ambulatory [facility] Work Phone: Start: 11-05-2024 End: 11-05-2024 Patient encounter procedure [facility] Work Phone: Start: 08-29-2024 Evaluation and management of inpatient MERRILL ALEJANDRA [facility] Start: 08-26-2024 Evaluation and management of inpatient BILL DUBOIS [facility] Start: 08-24-2024 Evaluation and management of inpatient [facility] Start: 08-24-2024 [facility] Start: 08-21-2024 Evaluation and management of inpatient [facility] Start: 08-21-2024 Evaluation and management of inpatient [facility] Start: 08-20-2024 Evaluation and management of inpatient [facility] Start: 08-20-2024 Evaluation and management of inpatient [facility] Start: 08-19-2024 Evaluation and management of inpatient [facility] Start: 08-17-2024 Evaluation and management of inpatient [facility] Start: 08-16-2024 Evaluation and management of inpatient [facility] Start: 08-16-2024 Evaluation and management of inpatient [facility] Start: 08-15-2024 Evaluation and management of inpatient AZULJACQUELINE SCOOBYJOSE MARTIN [facility] Start: 08-15-2024 End: 09-09-2024 Evaluation and management of inpatient SHAIKH MONO [facility] Start: 08-15-2024 Non-patient / Non-visit [facility] [place] [facility] Work Phone: Start: 08-14-2024 Non-patient / Non-visit [facility] [place] [facility] Work Phone: Start: 08-10-2024 End: 08-12-2024 Clinisync Result Encounter Shaikh Mono JARRETT Work Phone: [facility] Unsolicited Start: 08-10-2024 End: 08-12-2024 Clinisync Result Encounter Shaikh Mono JARRETT Work Phone: [facility] Unsolicited Start: 05-03-2024 End: 05-03-2024 ambulatory CRACKING AND FANNING MACHINE OPERATOR Darajody Eisenberg Work Phone: [facility] Work Phone: Start: 05-03-2024 End: 05-03-2024 Patient encounter procedure CRACKING AND FANNING MACHINE OPERATOR Darajody Eisenberg Work Phone: [facility] Work Phone: Start: 04-12-2024 End: 04-12-2024 ambulatory CRACKING AND FANNING MACHINE OPERATOR Darajarret Eisenberg Work Phone: [facility] Work Phone: Start: 04-12-2024 End: 04-12-2024 Patient encounter procedure CRACKING AND FANNING MACHINE OPERATOR Dara Faina Work Phone: [facility] Work Phone: Start: 04-08-2024 End: 04-08-2024 ambulatory CRACKING AND FANNING MACHINE OPERATORFauzia IvanDara Faina Work Phone: [facility] Work Phone: Start: 04-08-2024 End: 04-08-2024 Departed Referred CRACKING AND FANNING MACHINE OPERATORFauzia Eisenberg Work Phone: [facility] Start: 04-08-2024 Non-patient / Non-visit CRACKING AND FANNING MACHINE OPERATORFauzia Eisenberg Work Phone: [facility] [place] [facility] Work Phone: Start: 04-05-2024 End: 04-05-2024 Clinisync Result Encounter Shaikh Mono JARRETT Work Phone: [facility] Unsolicited Start: 04-05-2024 End: 04-05-2024 Clinisync Result Encounter Shaikh Mono JARRETT Work Phone: [facility] Unsolicited Start: 04-05-2024 End: 04-05-2024 ambulatory DPM Rc Curtis Work Phone: [facility] Work Phone: Start: 04-05-2024 End: 04-05-2024 Patient encounter procedure DPM Rc Curtis Work Phone: [facility] Work Phone: Start: 03-29-2024 End: 03-29-2024 ambulatory DPM Rc Curtis Work Phone: [facility] Work Phone: Start: 03-29-2024 End: 03-29-2024 Departed Referred DPM Rc Curtis Work Phone: [facility] Start: 01-26-2024 Non-patient / Non-visit DPM Rc Curtis Work Phone: [facility] Work Phone: Start: 07-14-2022 End: 07-15-[address] EDELMIRA SANTILLAN Facility:[facility] Start: 05-13-2022 End: 05-14-[address] MADELEINE MARCELINO Facility:[facility] Procedures Date Procedure Procedure Detail Performing Clinician Start: 08-10-2024 Bacteria identified in Urine by Culture Shaikh Mono JARRETT Work Phone: Start: 04-08-2024 Acid Fast Smear CRACKING AND FANNING MACHINE OPERATOR Elmer Eisenberg Work Phone: Start: 04-08-2024 AFB Specimen Processing CRACKING AND FANNING MACHINE OPERATORFauzia Eisenberg Work Phone: Start: 04-08-2024 Anaerobic Cult, Extended Incub CRACKING AND FANNING MACHINE OPERATORFauzia Eisenberg Work Phone: Start: 04-08-2024 Tissue Culture CRACKING AND FANNING MACHINE OPERATOR Kristel danieljose martin Faina Work Phone: Start: 04-05-2024 ALL CBC WITH AUTO DIFF Shaikh Mono JARRETT Work Phone: History of amputatio n of foot Status post partial amputation of right foot History of amputatio n of foot Status post partial amputation of right foot Dara Fania CRACKING AND FANNING MACHINE OPERATOR REINFORCED CONCRETE INSPECTOR History of amputatio n of foot Status post partial amputation of right foot Dara Faina CRACKING AND FANNING MACHINE OPERATOR REINFORCED CONCRETE INSPECTOR Plan of Treatment Date Care Activity Detail Author Start: 04-05-2025 Urine culture [facility] Start: 04-05-2025 Bacteria identified in Urine by Culture Urine Culture [facility] Start: 04-08-2024 Acid Fast Culture Acid Fast Culture [facility] Payers Date Payer Category Payer Self-pay 2025 Private Health Insurance [id number] 2024 Medicare [id number] 1961 Self-pay [id number] 1961 Unknown [id number] 21 1959 Unknown [id number] 1958 Unknown [id number] 59 1958 Unknown [id number] .[id number] 59 1958 Unknown [id number] .[id number] 1958 Unknown [id number] .[id number] 1958 Unknown [id number] .[id number] 72 1958 Unknown [id number] ..[id number] 1958 Unknown [id number] .[id number] .727 1958 Unknown [id number] .72 1958 Unknown [id number] [id number] .727 1958 Unknown [id number] [id number] .72 1958 Unknown [id number] .727 Medicare [employer] [id number] Private Health Insurance [facility] [id number] Unknown Regular Insurance [id number] Unknown [id number] Social History Date Type Detail Facility Tobacco smoking status NYIS Unknown if ever smoked [facility] Work Phone: Start: 1960 Sex Assigned At Male F [facility] Start: 04-05-2024 Tobacco smoking status NHIS Smoker (finding) [facility] Tobacco smoking status NYIS Tobacco smoking consumption unknown [facility] Start: 1960 Sex assigned at Not on file N [facility] Gender identity Not on file [facility] are Start: 11-05-2024 Sex Male (finding) [facility] Start: 04-05-2024 Tobacco smoking status NYIS Smokes tobacco daily (finding) [facility] Medical Equipment Procedure Code [...] 01, 2025 2:06pm Hypertension acute February 01, 025 2:06pm Mixed hyperlipidemia acute February 01, 2025 [...] Venous insufficiency (chronic) (peripheral) acute January 2:06pm [facility] Work Phone: 1(370) 257-402707-14-2025 NoteMicrobiology PROCEDURE: Blood Culture Charcoal [R1] SOURCE: Blood BODY SITE: Hand L COLLECTED DATE/TIME: 01/24/2025 17:12 EDT RECEIVED DATE/TIME: 01/24/2025 17:31 EDT START DATE/TIME: 01/24/2025 17:31 EDT FREE TEXT SOURCE: Timur MARCELO DO, Ghassan Ding III, DO, Ghassan Zepeda FINAL REPORTS Final Report [] Verified Date/Time: 01/31/2025 18:00 EDT No growth at 7 days. Performing Locations R1: This test was performed at: [facility], [address] [place] [address], [id number], IhmfahSelect Medical [facility], [facility] ShawComment on above:Performed By: #### [id number] #### [facility] [address] [place] [address] [id number] NoteMicrobiology PROCEDURE: Blood Culture Charcoal [R1] SOURCE: Blood BODY SITE: Arm R COLLECTED DATE/TIME: 01/24/2025 17:07 EDT RECEIVED DATE/TIME: 01/24/2025 17:31 EDT START DATE/TIME: 01/24/2025 17:31 EDT FREE TEXT SOURCE: Timur MARCELO DO, Ghassan Ding III, DO, Ghassan Zepeda FINAL REPORTS Final Report [] Verified Date/Time: 01/31/2025 18:00 EDT No growth at 7 days. Performing Locations R1: This test was performed at: [facility], [address] [place] [address], [id number] [place] [address], XauudwSelect Medical [facility] Hospital, Edwin ShawComment on above:Performed By: #### [id number] #### [facility] [address] [place] [address] [id number] NotePatient Education - Text Atrial Fibrillation Atrial [...] signals of the heart. ??? An ambulatory front desk monitor to record your heart's activity for [...] warning signs of a (more content not included)...[facility]07-09-2025 NoteDischarge Summary Admission and Discharge Information Admit [...] Insulin dependent type 2 diabetes mellitus, 01/24/2025 residential (current) use of insulin, 01/24/2025 Medical problem [...] poor historian, and obesity who presented to [facility] on 01/24/2025 with chief complaint of varicose [...] control regimen. Patient wasinsistent on trying an [id number]-[id number] supplement that he stated would cure diabetes [...] his wounds and recommended continued follow-up with [place] [facility] where he receives care. Patient successfully passed a voiding trial and was voiding easily after removalof [place]. Creatinine had improved from 1.4-0.8 on discharge. Medically stable for discharge home on 01/26/2025. Follow-up PCP in 7 to 10 days Continued care at [place] [facility] Referral sent to Dr. Dugan in [place] for endocrinology follow-up for better glucose control. [...] Completed -- 01/24/25 20:11:27 EDT Consult to Digital Strategy Specialist (Digital Strategy Specialist Consult) - Ordered -- 01/24/25 20:22:00 EDT, [...] equal & normal b (more content not included)...[facility] ShawComment on above:Result Comment: Electronically Signed By: Ghassan Ding III, DO.marco\Date and Time Signed: 01/26/25 16:13 [id number] NotePatient Education - Text Atrial Fibrillation Atrial [...] signals of the heart. ??? An ambulatory front desk monitor to record your heart's activity for [...] warning signs of a (more content not included)...[facility]07-09-2025 NoteProgress Note - Pharmacy Pharmacy to Dose [...] Plan; TBD Please contact Pharmacy at ext. [phone] if there are any questions.[facility]07-08-2025 NoteInterdisciplinary Note - OT Pt is seen for OT evaluation. AMPAC score: 16/24. Pt is agreeable only to sitting EOB, no further transfers or mobility and becomes very agitated due to BLE pain. Pt is below functional baseline for ADL performance. OT to follow for treatment. Recommending HH vs SNF at this time pending progress with treatment. [facility]07-08-2025 NoteProgress Note-Physician Assessment/Plan 01/25 - WBC count [...] Orders Initial Hospital Care/Day Moderate 55 Minutes 70622 Sbsq Hospital Care/Day Moderate 35 Minutes [id number] 2. Cellulitis of leg (L03.119: Cellulitis of [...] Monitoring on telemetry. Patient noncompliant with anticoagulation. [id number] score is 4. Reports that Eliquis dose [...] despite clear documentation from previous admission in [place] in August 2024. Reports that he stopped [...] 180. residential (current) use of insulin (Z79.4: residential (current) use of insulin) Orders: acetaminophen, 975 [...] Capillary Glucose POC Cardiac Monitoring Consult to Digital Strategy Specialist Creatine Kinase (more content not included)...[facility] ShawComment on above:Result Comment: Electronically Signed By: Ghassan Ding III, DO\Date and Time Signed: 01/25/25 13:28 [id number] NoteConsultation Note Patient: TYLER SMITH Age: 64 [...] list: All Problems Smoker / SNOMED CT 658899257 / Confirmed Added secondary to documentation in Social History. Tobacco use / SNOMED CT 2538636302 / Confirmed, Active Problems (2) Smoker Tobacco [...] Last Charted Temp Oral 36.8 DegC (JAN 25:20) Heart Rate Monitored 88 bpm (JAN 25 [...] an outpatient with the wound center in [place].[facility] ShawComment on above:Result Comment: Electronically Signed By: Sina Mckeon DPM.marco\Date and Time Signed: 01/25/25 12:56 [id number] NoteInterdisciplinary Note - PT PT Evaluation done this date. Pt. with on AM-PAC this date. He requires supervision to CGAx1 with all activity. Uses w/c and FWW at baseline. Recommend home with home health PT.[facility]07-08-2025 NoteProgress Note - Pharmacy Pharmacy to Dose [...] Plan; TBD Please contact Pharmacy at ext. [phone] if there are any questions.[facility]07-07-2025 NoteHistory and Physical Basic Information Admit Date/Time:01/24/2025 [...] poor historian, and obesity who presented to [facility] 01/24/2025 with chief complaint of varicose vein [...] would be 75 kg. Given 2 L. Murphy sepsis bolus will be 2.25 L, ever, [...] specifically. He follows with Dr. Curtis at [place] for podiatry and had a right transmetatarsal amputation in the past that appeared well- healed. He denies ever seeing vascular surgery. He follows with [place] [facility]. Stated that he has not [...] ROM, Normal alignment. Ext (more content not included)...[facility] ShawComment on above: Result Comment: Electronically Signed By: Ghassan Ding III, DO.br\Date and Time Signed: 01/24/25 20:28 [id number] NoteED Patient Education Note Cardiovascular Bleeding Varicose [...] at home: Medicines ??? Take and use haag-lyq-vwhupyl and prescription medicines and creams only as [...] your limbs and wais (morecontent not included)...Atilio [facility] 01-24-2025 NoteProgress Note-Nurse tourniquerts removed by Shantell [facility]07-07-2025 NoteProgress Note - Pharmacy Pharmacy to Dose [...] Discharge Plan; TBD Please contact Pharmacy at [phone]. [phone] if there are any questions. Spoke with Dr. Ding - he is ordering a lovenox bridgeSelect Medical [facility] Clinic [facility], [facility] Shaw07-07-2025 NoteProgress Note-Nurse derrell stopped after 4 minutes for blood cultures that are new order. puneet Montenegro [facility]07-07-2025 NoteProgress Note-Nurse pt reportedly wears 5 lpm at [facility]. d8id not say before. no saturating properly on at home [id number] Medical [facility], [facility] Shaw04-18-2025 Evaluation note* Diagnosis Onset Date Resolution Status [...] c) (peripheral) acute November 05, 2024 10:18am [facility] Work Phone: 1(752) 791-177002-20-2025 NoteUniversity [facility] 09-09-2024 NoteUniversity [facility]02-19-2025 NoteUniversity [facility]als [facility]02-19-2025 NoteUniversity [facility]als [facility] 09-07-2024 NoteDISCHARGE PLANNING UPDATE Patient now agreeable to SNF placement. Insurance authorization submitted for [facility] in [place]. Awaiting insurance decision.[facility]02-18-2025 NoteUniversity Hospitals [facility] 09-07-2024 NoteUnThe [facility]02-18-2025 NoteUnThe [facility]02-18-2025 NoteUnThe [facility] 09-07-2024 NoteUnThe [facility]02-18-2025 NoteUnThe [facility]02-17-2025 NoteUnThe [facility] 09-06-2024 NoteUnThe [facility]02-17-2025 NoteUnThe [facility]02-17-2025 NoteUniversity Hospitals [facility] 09-05-2024 NoteUnThe [facility]02-16-2025 NoteUnThe [facility]02-15-2025 NoteUnThe [facility] 09-04-2024 NoteUnThe [facility]02-15-2025 NoteUnThe [facility]02-14-2025 NoteUniversity [facility]als [facility] 09-03-2024 NoteUniversity Hospitals [facility]02-14-2025 NoteUnThe [facility]02-13-2025 NoteUnThe [facility] 09-02-2024 NoteUnThe [facility]02-13-2025 NoteUnThe [facility]02-13-2025 NoteUniversity Hospitals [facility] 09-01-2024 NoteDISCHARGE PLANNING UPDATE [facility] ([place], [place]) is FOC. Per their admissions team, they are submitting to insurance for authorization today, 09/01.[facility] 09-01-2024 NoteUniversity Hospitals [facility]hu[facility] Center02-12-2025 NoteUniversity Hospitals [facility]02-11-2025 NoteUniversity [facility]als [facility] 08-31-2024 NoteUniversity Hospitals [facility]02-11-2025 NoteUnThe [facility]02-11-2025 NoteUniversity Hospitals [facility] 08-30-2024 NoteUnThe [facility]02-10-2025 NoteUnThe [facility]02-10-2025 NoteUnThe [facility] 08-30-2024 NoteUnThe [facility]02-09-2025 NoteUnThe [facility]02-08-2025 NoteUnThe [facility] 08-28-2024 NoteUnThe [facility]02-08-2025 NoteUnThe [facility]02-07-2025 NoteUnThe [facility] 08-27-2024 NoteUniversity Hospitals [facility]hu[facility]02-06-2025 NoteUnThe [facility]02-06-2025 NoteUniversity Hospitals [facility] 08-26-2024 NoteUniversity Hospitals [facility] Center02-06-2025 NoteUniversity [facility]als [facility]02-05-2025 NoteUniversity [facility]als [facility] 08-25-2024 NoteUniversity [facility]als [facility]02-05-2025 NoteUniversity [facility]als [facility]02-05-2025 NoteUniversity [facility]als [facility] 08-24-2024 NoteUniversity Hospitals [facility] Center02-04-2025 NoteUniversity [facility]als [facility]02-04-2025 NoteUniversity [facility] 08-24-2024 NotePatient is off unit for testing at this time.[facility]02-04-2025 NoteUniversity [facility]als [facility]02-04-2025 Note [facility]02-04-2025 NoteUnThe [facility]02-04-2025 NoteUnThe [facility]02-04-2025 Note [facility]02-03-2025 NoteUnThe [facility]02-03-2025 NoteUnThe [facility]02-02-2025 Note [facility]02-01-2025 NoteUnThe [facility]02-01-2025 NoteUnThe [facility]01-31-2025 Note [facility]01-31-2025 NoteUnThe [facility]01-30-2025 NoteUnThe [facility]01-29-2025 Note [facility]01-28-2025 NoteUnThe [facility]01-28-2025 NoteUnThe [facility]01-27-2025 Note [facility]01-27-2025 NoteUnThe [facility]01-27-2025 NoteUnThe Surgical Hospital at SouthwoodsEvaluation noteNo assessment information availableUniversity [facility]als [facility] Work Phone: Evaluation note* Diagnosis Onset Date Resolution Status Type 2 diabetes mellitus acu te [facility] Work Phone: Evaluation note* Diagnosis Onset Date Resolution Status COPD (chronic obstructive pulmonary disease) acute Hypertension acute MRSA cellulitis of right foot acute Nicotine dependence acute Non-compliance acute Oxygen dependent acute Type 2 diabetes mellitus acu te Ulcer of right foot due to type 2 diabetes mellitus acute [facility] Work Phone: Evaluation note* Diagnosis Onset Date Resolution Status COPD (chronic obstructive pulmonary disease) acute Hypertension acute MRSA cellulitis of right foot acute Nicotine dependence acute Non-compliance acute Oxygen dependent acute Type 2 diabetes mellitus acu te Ulcer of right foot due to type 2 diabetes mellitus acute Acute osteomyelitis of foot acute [facility] Work Phone: Evaluation note* Diagnosis Onset Date Resolution Status COPD (chronic obstructive pulmonary disease) acute Hypertension acute MRSA cellulitis of right foot acute Nicotine dependence acute Non-compliance acute Oxygen dependent acute Type 2 diabetes mellitus acu te Ulcer of right foot due to type 2 diabetes mellitus acute Acute osteomyelitis of foot acute Low back pain acute [facility] Work Phone: Evaluation note* Diagnosis Onset [...] acute November 05, 2024 10:18am [facility] Work Phone: Reason for referral (narrative)No reason for referral information availableMercy Health Work Phone: Summary Purpose Family History No Family History Records Found Relationship Condition Age at Onset Recorded Date/T mecca mother Malignant neoplasm of cervix Unknown Advance Directives No Advanced Directives Records Found Advance Directive Response Recorded Date/ Time Advance Directives No March 2:40pm Chief Complaint and Reason for Visit Chief Complaint Admit Date Amb Documentation January 27, 2025 8:33 am [facility] [place] February 01, 2025 2:06 pm [...] 2025 2:06pm Chief Complaint Admit Date F/U half-way stay/Medications-HIGH R ISK November 05, 2024 10:18am Amb Documentation January 27, 2025 8:33 am [facility] [place] February 01, 2025 2:06 pm [...] 2024 10:18am Chief Complaint Admit Date F/U half-way stay/Medications-HIGH R ISK November 05, 2024 10:18am [...] DATE CREATED AUTHOR 07/19/2022 [facility] DATE CREATED AUTHOR AUTHOR'S ORGANIZ ATION 10/20/2024 [facility] DATE CREATED AUTHOR AUTHOR'S ORGANIZ ATION 01/28/2025 [place] [facility] DATE CREATED AUTHOR AUTHOR'S ORGANIZ ATION 01/29/2025 [place] [facility] DATE CREATED AUTHOR AUTHOR'S ORGANIZ ATION 01/30/2025 [place] [facility] DATE CREATED AUTHOR AUTHOR'S ORGANIZ ATION 02/04/2025 [place] [facility] DATE CREATED AUTHOR AUTHOR'S ORGANIZ ATION 02/17/2025 [place] [facility] DATE CREATED AUTHOR AUTHOR'S ORGANIZ ATION 04/01/2025 [place] [facility] DATE CREATED AUTHOR AUTHOR'S ORGANIZ ATION 04/13/2025 [facility] Care Teams (unrecognized sec tion and content) Team Status: Active Member Role Status Dates Magnolia Chavez LPN Attending Provider Active St art: January 26, 2024 Team Status: Inactive Member Role Status Dates Rc Curtis DPM MS Attending Provider Active Start: March 29, 2024 End: March 29, 2024 Team Status: Active Member Role Status Dates Dara Eisenberg APRN CUSTOM STUDIO COORDINATOR-C Primary Care Provider Active Team Status: Inactive Member Role Status Dates Dara Eisenberg APRN CUSTOM STUDIO COORDINATOR-C Primary Care Provider, Attending Provider Active Start: April 05, 2024 End: April 05, 2024 Team Status: Active Member Role Status Dates Dara Eisenberg APRN CUSTOM STUDIO COORDINATOR-C Primary Care Provider, Attending Provider Active Start: April 08, 2024 Team Status: Inactive Member Role Status Dates Dara Eisenberg APRN CUSTOM STUDIO COORDINATOR-C Primary Care Provider Active Start: March 212023 End: April 08, 2024 Rc Curtis DPM MS Attending Provider Active Start: April 08, 2024 End: April 08, 2024 Team Status: Inactive Member Role Status Dates Dara Eisenberg APRN CUSTOM STUDIO COORDINATOR-C Primary Care Provider Active Start: March 222023 End: April 12, 2024 Navdepe Trujillo MD Attending Provider Active Sta rt: April 12, 2024 End: April 12, 2024 Team Status: Inactive Member Role Status Dates Dara Eisenberg APRN CUSTOM STUDIO COORDINATOR-C Primary Care Provider, Attending Provider Active Start: May 03, 2024 End: May 03, 2024 Team Status: Active Member Role Status Dates Dara Eisenberg APRN CUSTOM STUDIO COORDINATOR-C Primary Care Provider Active Start: July Shaikh Mono MD Attending Provider Active Sta rt: August 14, 2024 Team Status: Active Member Role Status Dates Dara Eisenberg APRN CUSTOM STUDIO COORDINATOR-C Primary Care Provider Active Start: July Shaikh Mono MD Attending Provider Active Sta rt: August 15, 2024 Team Status: Inactive Member Role Status Dates Dara Eisenberg APRN CUSTOM STUDIO COORDINATOR-C Primary Care Provider, Attending Provider Active Start: November 05, 2024 End: November 05, 2024 Team Status: Inactive Member Role Status Dates Dara Eisenberg APRN CUSTOM STUDIO COORDINATOR-C Primary Care Provider Active Start: November 05, 2024 End: November 05, 2024 Dara Eisenberg APRN CUSTOM STUDIO COORDINATOR-C Attending Provider Act mook Start: November 05, 2024 End: November 05, 2024 Team Status: Active Member Role Status Dates Dara Eisenberg APRN CUSTOM STUDIO COORDINATOR-C Primary Care Provider Active Start: January 27, 2025 Angelic Blevins CMA Attending Provider Active Start: January 27, 2025 Team Status: Inactive Member Role Status Dates Dara Eisenberg APRN CUSTOM STUDIO COORDINATOR-C Primary Care Provider Active Start: February 01, 2025 End: February 01, 2025 Dara Eisenberg APRN CUSTOM STUDIO COORDINATOR-C Attending Provider Act mook Start: February 01, 2025 End: February 01, 2025 Team Status: Active Member Role Status Dates Dara Eisenberg APRN CUSTOM STUDIO COORDINATOR-C Primary Care Provider Active Start: March 212024 Coco Starr MD Attending Provider Active Sta rt: April 05, 2025 Team Status: Inactive Member Role Status Dates Coco Starr MD Attending Provider Active Sta rt: April 05, 2025 End: April 05, 2025 Team Status: Active Member Role Status Dates Dara Eisenberg APRN CUSTOM STUDIO COORDINATOR-C Primary Care Provider Active Start: March 212024 [...] THE PRIMARY CLINICAL RECORDS. [facility]. provides no warranty or guarantee of the accuracy or completeness of information in this document.
--- NOTE | 2025-04-14 13:19 | CM.DCFOLLOWU ---
patient left against medical advice
== END 2025-04-12 20:41 | disposition left against medical advice (07) | DRG 871 ==
LOC: ER 21:31 → MS 04-12 15:26
PROVIDERS: Physician Assistant; Admitting Provider Internal Medicine; Emergency Provider Emergency Medicine; PCP Nurse Practitioner Family; Visit Provider Internal Medicine
DX: A40.1 Sepsis due to streptococcus, group B (principal); J96.02 Acute respiratory failure with hypercapnia; I42.9 Cardiomyopathy, unspecified; N39.0 Urinary tract infection, site not specified; J44.1 Chronic obstructive pulmonary disease with (acute) exacerbation; L97.412 Non-pressure chronic ulcer of right heel and midfoot with fat layer exposed; M86.471 Chronic osteomyelitis with draining sinus, right ankle and foot; L02.611 Cutaneous abscess of right foot; R65.20 Severe sepsis without septic shock; I48.91 Unspecified atrial fibrillation; Z79.01 Long term (current) use of anticoagulants; E11.65 Type 2 diabetes mellitus with hyperglycemia; Z99.3 Dependence on wheelchair; N18.30 Chronic kidney disease, stage 3 unspecified; E11.22 Type 2 diabetes mellitus with diabetic chronic kidney disease; E66.01 Morbid (severe) obesity due to excess calories; M54.30 Sciatica, unspecified side; Z53.29 Procedure and treatment not carried out because of patient's decision for other reasons; E11.621 Type 2 diabetes mellitus with foot ulcer; E11.69 Type 2 diabetes mellitus with other specified complication; F17.200 Nicotine dependence, unspecified, uncomplicated; Z90.49 Acquired absence of other specified parts of digestive tract; Z89.421 Acquired absence of other right toe(s); Z91.199 Patient's noncompliance with other medical treatment and regimen due to unspecified reason; B96.89 Other specified bacterial agents as the cause of diseases classified elsewhere; Z68.38 Body mass index [BMI] 38.0-38.9, adult; Z86.14 Personal history of Methicillin resistant Staphylococcus aureus infection; Z79.4 Long term (current) use of insulin; E11.42 Type 2 diabetes mellitus with diabetic polyneuropathy; Z79.84 Long term (current) use of oral hypoglycemic drugs; G47.33 Obstructive sleep apnea (adult) (pediatric)
CPT/HCPCS: 29581; 36415; 71045; 72100; 73630; 80048; 80053; 80202; 81001; 82947; 82948; 83605; 83735; 83880; 84484; 85007; 85025; 85027; 85610; 86140; 87040; 87070; 87075; 87077; 87086; 87088; 87150; 87186; 87493; 87811; 93005; 93306; 93925; 93970; 94640; 94761; 96365; 96375; 97110; 97161; 97165; 97530; 99285; G0463; J0456; J0743; J1160; J1171; J1938; J2405; J2919; J3373; P9046

== ENCOUNTER 2025-04-19 13:57 | Outpatient (OUT) | payer MEDICARE, SELFPAY ==
--- OUTSIDE RECORDS SUMMARY | 2024-04-08 04:15 | XMS_ITS ---
Author Organization [facility] in [place] Address [address] [place] [address] Care Team Providers Care Experimental Psychologist Name Role Phone Dara Eisenberg CNP Primary Care Provider U Rc Prado Unavailable [phone] REASON FOR VISIT RT TMA Encounters Encounter Location Date Provider Diagnosis [facility] OUTPATIENT [address] [place] [address] 04/08/2024 Rc Curtis Plan Of Treatment No Information Progress Notes * Onofre SMITHDOB:1960 ([age] yo M)Acc No.[id number]:04/08/2024 UNLOCKED PROGRESS NOTE Patient: Onofre CORDERO Provider: Los Curtis DPM, MS :1960 A ge:63 Y S ex:Male Date:04/08/2024 Address:[address] [place], [place] [id number] Pcp:Dara Eisenberg CNP Check Out:12:18 PM EST * * Electronic signature of Cm Curtis DPM on 04/19/2025 at 01:59 PM EDT Sign off status: Pending Visit Status: C HK (Check Out) * Provider: Los Curtis DPM, MS Date: 04/08/2024 Generated for Cati ng/Fasallyg/eTransmitting on: 04/19/2025 01:59 PM EDT
--- OUTSIDE RECORDS SUMMARY | 2025-04-19 13:59 | XMS_ITS | Clinical Summary ---
Author Organization [facility] Address [address] [facility] [place] [address] Care Team Providers Care Lunch Cook Name Role Phone Dara Eisenberg NP Primary Care Provider Encounters Date Type Department Care Team Description 01/26/2025 [facility] [address] [place] [address] Sina Mckeon, DPM FACFAS from Last 3 Months Social History Tobacco Use Types Packs/Day Years Used Date Smoking Tobacco: Never Assessed Sex and Gender Information Value Date Recorded Sex Assigned at Not on file Legal Sex Male 7:20 PM EDT Gender Identity Not on file Sexual Orientation Not on file Plan of Treatment Not on file Insurance [employer] MEDICARE Care Teams Lunch Cook Relationship Specialty Start Date End Date Dara Eisenberg NP [address] [place] [id number] PCP - General Family Medicine 11/11/24
--- OUTSIDE RECORDS SUMMARY | 2025-04-19 13:59 | XMS_ITS | Clinical Summary ---
Author Organization [facility] Address [address] [place] [address] Care Team Providers Care Compressor Battery Pellets Name Role Phone No, Physician Primary Care [...] - 1-dose 75+ series) 2033 Care Teams Compressor Battery Pellets Relationship Specialty Start Date End Date No, Physician [facility] PCP - General 10/04/16
--- OUTSIDE RECORDS SUMMARY | 2025-04-19 13:59 | XMS_ITS | Encounter Summary ---
Author Organization [facility] Address [address] [place] [address] Care Team Providers Care Process Environmental Technician Name Role Phone Dara Eisenberg LICENSED MIDWIFE Primary Care Provider Encounter Details Date Type Department Care Team ([facility] Contact Info) Description 01/26/2025 Abstract [facility] P[facility] [address] [place] [phone] Sina Mckeon, DPM FACFAS [address] [place] [address] Social History Tobacco Use Types Packs/Day Years [...] on filedocumented in this encounter Care Teams Process Environmental Technician Relationship Specialty Start Date End Date Dara Eisenberg NP [address] [facility] [place] [address] [place] [address] PCP - General Family Medicine 11/11/24 documented as of this encounter
--- OUTSIDE RECORDS SUMMARY | 2025-04-19 13:59 | XMS_ITS | Clinical Summary ---
Author Organization [facility] Address [address] [place] [address] Care Team Providers Care Jig Grinder Set Up Operator Name Role Phone Dara Eisenberg NP Primary Care Provider [phone] Allergies No known active allergies Medications insulin [...] 5 Active furosemide (Lasix) 40 mg tabletIndications:Ac [place] hypoxic respiratory failure (CMS/HCC) Take 1 tablet [...] uit: Not Asked; Counseling Given: Not Answered [facility] Utilities Answer Date Recorded In the [...] any time in the past 12 m [facility], were you homeless or living [...] - 6.0 % 08/16/2024 12:30 PM EST [facility] ([facility]) Estimated Average Glucose 189 mg/dL 08/16/2024 12:30 PM EST [facility] ([facility]) Blood Venous blood specimen / Unknown Arterial Line / Unknown 08/15/2024 2:04 PM EST 08/15/2024 2:30 PM EST Chantal Woodruff MD LAB BLOOD ORDERABLES Final Re sult [facility] ([facility]) [address] [place] [address] from Last 3 Months or Most Recently Relevant to Health Maintenance Additional Health Concerns Infection Onset Date Last Indicated MRSA 08/18/2024 08/21/2024 Insurance [employer] Advance Directives * Full Code (Latest Code Status on File) Date Activated Date Inactivated Comments 08/15/2024 12:24 PM 09/09/2024 2:30 PM Care Teams Jig Grinder Set Up Operator Relationship Specialty Start Date End Date Dara Eisenberg NP [address] [place], [place] [id number] PCP - General Family Medicine 07/21/24
--- OUTSIDE RECORDS SUMMARY | 2025-04-19 13:59 | XMS_ITS | Clinical Summary ---
Author Organization [facility] Address [address] [place] [address] Care Team Providers Care Discovery Manager Name Role Phone Unavailable Primary Care [...]
--- OUTSIDE RECORDS SUMMARY | 2025-04-19 13:59 | XMS_ITS | Patient Health Record ---
Author Organization [facility] Address [address] [place] [address] Care Team Providers Care Heavy Equipment Service Manager Name Role Phone Dara Eisenberg CNP Primary [...] Interpretation CHEN Status Aerobic Culture Performed at: [facility] Aerobic Culture Organism: Staphylococcus aureus : O:MRSA Isolated O:STAAUR Isolated Organism: 1.1 Antibiotic Interpretation CHEN Status Aerobic Culture [address] [place], [place] [id number] Aerobic Culture Organism: Staphylococcus aureus : O:MRSA Isolated O:STAAUR Isolated Organism: 1.1 Antibiotic Interpretation CHEN Status Aerobic Culture Station Supervisor: Yung Saeed PhD, Phone: [phone] Aerobic Culture Organism: Staphylococcus aureus : O:MRSA [...] Antibiotic Interpretation CHEN Status Aerobic Culture Trimethoprim/Sulfame thox azole R F Aerobic Culture Organism: Staphylococcus aureus [...] LC - [facility] SEE REPORT - Surveyor Hydrographic Id information not found for OBX-specific manager behavior legend Aerobic Culture (Not yet rev iewed [...] Rifampin S F Tetracycline Tetracycline S F Trimethoprim/Sulfamethox azole Trimethoprim/Sulfamethox azole R F Vancomycin Vancomycin S F Clindamycin [...] Rifampin S F Tetracycline Tetracycline S F Trimethoprim/Sulfamethox azole Trimethoprim/Sulfamethox azole R F Vancomycin Vancomycin S F Clindamycin [...] Rifampin S F Tetracycline Tetracycline S F Trimethoprim/Sulfamethox azole Trimethoprim/Sulfamethox azole R F Vancomycin Vancomycin S F Clindamycin [...] Rifampin S F Tetracycline Tetracycline S F Trimethoprim/Sulfamethox azole Trimethoprim/Sulfamethox azole R F Vancomycin Vancomycin S F Clindamycin Clindamycin S F Aerobic Culture Organism: Methicilli n Resis Staph Aureus : Aerobic Culture Organism: Staphylococcus aureus : O:MRSA Isolated O:STAAUR Isolated Organism: 2.1 Antibiotic Interpretation CHEN Status Ciprofloxacin Ciprofloxacin R F Erythromycin Erythromycin R F Gentamicin Gentamicin S F Levofloxacin Levofloxacin R F Linezolid Linezolid S F Oxacillin Oxacillin R F Penicillin Penicillin R F Rifampin Rifampin S F Tetracycline Tetracycline S F Trimethoprim/Sulfamethox azole Trimethoprim/Sulfamethox azole R F Vancomycin Vancomycin S F Clindamycin [...] Rifampin S F Tetracycline Tetracycline S F Trimethoprim/Sulfamethox azole Trimethoprim/Sulfamethox azole R F Vancomycin Vancomycin S F Clindamycin [...] Rifampin S F Tetracycline Tetracycline S F Trimethoprim/Sulfamethox azole Trimethoprim/Sulfamethox azole R F Vancomycin Vancomycin S F Clindamycin [...] Rifampin S F Tetracycline Tetracycline S F Trimethoprim/Sulfamethox azole Trimethoprim/Sulfamethox azole R F Vancomycin Vancomycin S F Clindamycin [...] Rifampin S F Tetracycline Tetracycline S F Trimethoprim/Sulfamethox azole Trimethoprim/Sulfamethox azole R F Vancomycin Vancomycin S F Clindamycin [...] Rifampin S F Tetracycline Tetracycline S F Trimethoprim/Sulfamethox azole Trimethoprim/Sulfamethox azole R F Vancomycin Vancomycin S F Clindamycin [...] Rifampin S F Tetracycline Tetracycline S F Trimethoprim/Sulfamethox azole Trimethoprim/Sulfamethox azole R F Vancomycin Vancomycin S F Clindamycin [...] Rifampin S F Tetracycline Tetracycline S F Trimethoprim/Sulfamethox azole Trimethoprim/Sulfamethox azole R F Vancomycin Vancomycin S F Clindamycin Clindamycin S F Aerobic Culture Moderate growth Aerobic Culture Organism: Staphylococcus aureus : O:MRSA Isolated O:[facility] Isolated Organism: 2.1 Antibiotic Interpretation CHEN Status Ciprofloxacin Ciprofloxacin R F Erythromycin Erythromycin R F Gentamicin Gentamicin S F Levofloxacin Levofloxacin R F Linezolid Linezolid S F Oxacillin Oxacillin R F Penicillin Penicillin R F Rifampin Rifampin S F Tetracycline Tetracycline S F Trimethoprim/Sulfamethox azole Trimethoprim/Sulfamethox azole R F Vancomycin Vancomycin S F Clindamycin Clindamycin S F Aerobic Culture Methicillin Resis St aph Aureus Aerobic Culture Organism: Staphylococcus aureus : O:MRSA Isolated O:[facility] Isolated Organism: 2.1 Antibiotic Interpretation CHEN Status Ciprofloxacin Ciprofloxacin R F Erythromycin Erythromycin R F Gentamicin Gentamicin S F Levofloxacin Levofloxacin R F Linezolid Linezolid S F Oxacillin Oxacillin R F Penicillin Penicillin R F Rifampin Rifampin S F Tetracycline Tetracycline S F Trimethoprim/Sulfamethox azole Trimethoprim/Sulfamethox azole R F Vancomycin Vancomycin S F Clindamycin Clindamycin S F Aerobic Culture See Below For Report Aerobic Culture Organism: Staphylococcus aureus : O:MRSA Isolated O:[facility] Isolated Organism: 2.1 Antibiotic Interpretation CHEN Status Ciprofloxacin Ciprofloxacin R F Erythromycin Erythromycin R F Gentamicin Gentamicin S F Levofloxacin Levofloxacin R F Linezolid Linezolid S F Oxacillin Oxacillin R F Penicillin Penicillin R F Rifampin Rifampin S F Tetracycline Tetracycline S F Trimethoprim/Sulfamethox azole Trimethoprim/Sulfamethox azole R F Vancomycin Vancomycin S F Clindamycin [...] Rifampin S F Tetracycline Tetracycline S F Trimethoprim/Sulfamethox azole Trimethoprim/Sulfamethox azole R F Vancomycin Vancomycin S F Clindamycin Clindamycin S F Aerobic Culture Performed at: [facility] Aerobic Culture Organism: Staphylococcus aureus : O:MRSA Isolated O:STAAUR Isolated Organism: 2.1 Antibiotic Interpretation CHEN Status Ciprofloxacin Ciprofloxacin R F Erythromycin Erythromycin R F Gentamicin Gentamicin S F Levofloxacin Levofloxacin R F Linezolid Linezolid S F Oxacillin Oxacillin R F Penicillin Penicillin R F Rifampin Rifampin S F Tetracycline Tetracycline S F Trimethoprim/Sulfamethox azole Trimethoprim/Sulfamethox azole R F Vancomycin Vancomycin S F Clindamycin Clindamycin S F Aerobic Culture [address] [place] [id number] Aerobic Culture Organism: Staphylococcus aureus : O:MRSA Isolated O:STAAUR Isolated Organism: 2.1 Antibiotic Interpretation CHEN Status Ciprofloxacin Ciprofloxacin R F Erythromycin Erythromycin R F Gentamicin Gentamicin S F Levofloxacin Levofloxacin R F Linezolid Linezolid S F Oxacillin Oxacillin R F Penicillin Penicillin R F Rifampin Rifampin S F Tetracycline Tetracycline S F Trimethoprim/Sulfamethox azole Trimethoprim/Sulfamethox azole R F Vancomycin Vancomycin S F Clindamycin Clindamycin S F Aerobic Culture Station Supervisor: Yung Saeed PhD, Phone: [phone] Aerobic Culture Organism: Staphylococcus aureus : O:MRSA Isolated O:STAAUR Isolated Organism: 2.1 Antibiotic Interpretation CHEN Status Ciprofloxacin Ciprofloxacin R F Erythromycin Erythromycin R F Gentamicin Gentamicin S F Levofloxacin Levofloxacin R F Linezolid Linezolid S F Oxacillin Oxacillin R F Penicillin Penicillin R F Rifampin Rifampin S F Tetracycline Tetracycline S F Trimethoprim/Sulfamethox azole Trimethoprim/Sulfamethox azole R F Vancomycin Vancomycin S F Clindamycin [...] Rifampin S F Tetracycline Tetracycline S F Trimethoprim/Sulfamethox azole Trimethoprim/Sulfamethox azole R F Vancomycin Vancomycin S F Clindamycin [...] Rifampin S F Tetracycline Tetracycline S F Trimethoprim/Sulfamethox azole Trimethoprim/Sulfamethox azole R F Vancomycin Vancomycin S F Clindamycin [...] Rifampin S F Tetracycline Tetracycline S F Trimethoprim/Sulfamethox azole Trimethoprim/Sulfamethox azole R F Vancomycin Vancomycin S F Clindamycin [...] Rifampin S F Tetracycline Tetracycline S F Trimethoprim/Sulfamethox azole Trimethoprim/Sulfamethox azole R F Vancomycin Vancomycin S F Clindamycin [...] Rifampin S F Tetracycline Tetracycline S F Trimethoprim/Sulfamethox azole Trimethoprim/Sulfamethox azole R F Vancomycin Vancomycin S F Clindamycin [...] Rifampin S F Tetracycline Tetracycline S F Trimethoprim/Sulfamethox azole Trimethoprim/Sulfamethox azole R F Vancomycin Vancomycin S F Clindamycin [...] Rifampin S F Tetracycline Tetracycline S F Trimethoprim/Sulfamethox azole Trimethoprim/Sulfamethox azole R F Vancomycin Vancomycin S F Clindamycin Clindamycin S F Aerobic Culture See Below For Report Aerobic Culture Organism: Staphylococcus aureus : O:MRSA [facility]olated [facility] Isolated Organism: 2.1 Antibiotic Interpretation CHEN Status Ciprofloxacin Ciprofloxacin R F Erythromycin Erythromycin R F Gentamicin Gentamicin S F Levofloxacin Levofloxacin R F Linezolid Linezolid S F Oxacillin Oxacillin R F Penicillin Penicillin R F Rifampin Rifampin S F Tetracycline Tetracycline S F Trimethoprim/Sulfamethox azole Trimethoprim/Sulfamethox azole R F Vancomycin Vancomycin S F Clindamycin [...] Rifampin S F Tetracycline Tetracycline S F Trimethoprim/Sulfamethox azole Trimethoprim/Sulfamethox azole R F Vancomycin Vancomycin S F Clindamycin [...] Rifampin S F Tetracycline Tetracycline S F Trimethoprim/Sulfamethox azole Trimethoprim/Sulfamethox azole R F Vancomycin Vancomycin S F Clindamycin [...] Rifampin S F Tetracycline Tetracycline S F Trimethoprim/Sulfamethox azole Trimethoprim/Sulfamethox azole R F Vancomycin Vancomycin S F Clindamycin [...] Rifampin S F Tetracycline Tetracycline S F Trimethoprim/Sulfamethox azole Trimethoprim/Sulfamethox azole R F Vancomycin Vancomycin S F Clindamycin [...] Rifampin S F Tetracycline Tetracycline S F Trimethoprim/Sulfamethox azole Trimethoprim/Sulfamethox azole R F Vancomycin Vancomycin S F Clindamycin Clindamycin S F Performing Lab: see note LC - [facility] SEE REPORT - Surveyor Hydrographic Id information not found for OBX-specific manager behavior legend Anaerobic Culture (Not yet r eviewed [...] ulcer due to type 2 diabetes mellitus (8074765879572) Type 2 diabetes mellitus with foot ulcer (E11.621) Active confirmed Problem Chronic ulcer of lower extremity (45132809) Non-pressure chronic ulcer of other part of right lower leg limited to breakdown of skin (L97.811) Active confirmed Problem Chronic non-pressure ulcer of calf extending to fat level (2521450705665033 1) Non-pressure chronic ulcer of other part of right lower leg with fat layer exposed (L97.812) Active confirmed Problem Non-pressure chronic ulcer of other part of left lower leg with fat layer exposed (L97.822) Active confirmed Problem Acute exacerbation of chronic obstructive airways disease (873662270) COPD exacerbation (J44.1) Active confirmed Problem 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 with ulcer (I87.313) Active confirmed Problem Ulcer of left lower leg (disorder) (0467870610026572 3) Leg ulcer, left, limited to breakdown of skin (L97.921) Active confirmed Problem Acute osteomyelitis of ankle and/or foot (011770119) Acute osteomyelitis of right ankle or foot [...] stump (T87.89) Active confirmed Problem Diabetes mellitus (20656741) Diabetes mellitus (E11.9) Active confirmed Problem Polyneuropathy due to type 2 diabetes mellitus (209019217) Controlled type 2 diabetes mellitus with diabetic polyneuropathy, unspecified whether penitentiary insulin use (E11.42) Active confirmed Problem Polyneuropathy due to type 2 diabetes mellitus (949239852) 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) Active confirmed [...] Insured Coverage Start Date Coverage End Date [facility] [address] [address] [place], [place] [id number] [phone] [id number] Onofre Mckinney Self - patient is the insured
--- OUTSIDE RECORDS SUMMARY | 2025-04-19 13:59 | XMS_ITS | Clinical Summary ---
Author Organization [facility] [facility] Address [id number] [address] [id number] Care Team Providers Care Pharmacogeneticist Name Role Phone Unavailable Primary Care Provider [...]
== END 2025-04-19 13:58 | disposition home or self-care (01) ==
LOC: WC 13:57
PROVIDERS: PCP Nurse Practitioner Family; Visit Provider Physician Assistant
DX: I87.313 Chronic venous hypertension (idiopathic) with ulcer of bilateral lower extremity (principal); L97.822 Non-pressure chronic ulcer of other part of left lower leg with fat layer exposed; L97.812 Non-pressure chronic ulcer of other part of right lower leg with fat layer exposed; E11.621 Type 2 diabetes mellitus with foot ulcer; L97.412 Non-pressure chronic ulcer of right heel and midfoot with fat layer exposed; L97.422 Non-pressure chronic ulcer of left heel and midfoot with fat layer exposed
CPT/HCPCS: 29581

== ENCOUNTER 2025-04-25 13:56 | Outpatient (OUT) | payer MEDICARE, SELFPAY ==
--- OUTSIDE RECORDS SUMMARY | 2024-04-08 04:15 | XMS_ITS ---
Author Organization [facility] in [place] Address [address] [place] [address] Care Team Providers Care Putty Maker Name Role Phone Dara Eisenberg CNP Primary Care Provider U Rc Prado Unavailable [phone] REASON FOR VISIT RT TMA Encounters Encounter Location Date Provider Diagnosis [facility] OUTPATIENT [address] [place] [address] 04/08/2024 Rc Curtis Plan Of Treatment No Information Progress Notes * Onofre SMITHDOB:1960 ([age] yo M)Acc No.[id number]:04/08/2024 UNLOCKED PROGRESS NOTE Patient: Onofre CORDERO Provider: Los Curtis DPM, MS :1960 A ge:63 Y S ex:Male Date:04/08/2024 Address:[address] [place], [place] [id number] Pcp:Dara Eisenberg CNP Check Out:12:18 PM EST * * Electronic signature of Cm Curtis DPM on 04/25/2025 at 01:58 PM EDT Sign off status: Pending Visit Status: C HK (Check Out) * Provider: Los Curtis DPM, MS Date: 0 04/08/2024 Generated for Cati ng/Klaudia/eTransmitting on: 1 01:58 PM EDT
--- OUTSIDE RECORDS SUMMARY | 2025-04-25 13:58 | XMS_ITS | Clinical Summary ---
Author Organization [facility] Address [address] [place] [address] Care Team Providers Care Tool/Die Maker Name Role Phone No, Physician Primary Care [...] - 1-dose 75+ series) 2033 Care Teams Tool/Die Maker Relationship Specialty Start Date End Date No, Physician [facility] PCP - General 10/04/16
--- OUTSIDE RECORDS SUMMARY | 2025-04-25 13:58 | XMS_ITS | Encounter Summary ---
Author Organization [facility] Address [address] [place] [address] Care Team Providers Care Counterintelligence Agent Name Role Phone Dara Eisenberg TRANSPORTATION SECURITY SCREENER Primary Care Provider Encounter Details Date Type Department Care Team ([facility] Contact Info) Description 01/26/2025 Abstract [facility] [address] [place] [phone] Sina Mckeon, DPM FACFAS [address] [place] [address] Social History Tobacco Use Types Packs/Day Years [...] on filedocumented in this encounter Care Teams Counterintelligence Agent Relationship Specialty Start Date End Date Dara Eisenberg NP [address] [facility] [place] [address] [place] [address] PCP - General Family Medicine 11/11/24 documented as of this encounter
--- OUTSIDE RECORDS SUMMARY | 2025-04-25 13:58 | XMS_ITS | Clinical Summary ---
Author Organization [facility] Address [address] [place] [address] Care Team Providers Care Professor Of English Name Role Phone Dara Eisenberg NP Primary Care Provider [phone] Allergies No known active allergies Medications insulin [...] Asked; Counseling Given: Not Answered [facility] Utilities Answer Date Recorded In the [...] any time in the past 12 m [facility], were you homeless or living in a senior living (including now)? Patient unable to answer 08/15/2024 [...] - 6.0 % 08/16/2024 12:30 PM EST [facility] ([facility]) Estimated Average Glucose 189 mg/dL 08/16/2024 12:30 PM EST [facility] ([facility]) Blood Venous blood specimen / Unknown Arterial Line / Unknown 08/15/2024 2:04 PM EST 08/15/2024 2:30 PM EST Chantal Woodruff MD LAB BLOOD ORDERABLES Final Re sult [facility] ([facility]) [address] [place] [address] from Last 3 Months or Most Recently Relevant to Health Maintenance Additional Health Concerns Infection Onset Date 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
--- OUTSIDE RECORDS SUMMARY | 2025-04-25 13:58 | XMS_ITS | Clinical Summary ---
Author Organization [facility] Address [id number] [address] [id number] Care Team Providers Care Event Coordinator Name Role Phone Unavailable Primary Care Provider [...]
--- OUTSIDE RECORDS SUMMARY | 2025-04-25 13:58 | XMS_ITS | Clinical Summary ---
Author Organization [facility] Address [address] [place] [address] Care Team Providers Care Vice President Of Instruction Name Role Phone Dara Eisenberg NP Primary Care Provider Encounters Date Type Department Care Team Description 01/26/2025 Abstract [facility] [address] [place] [id number] Sina Mckeon, DPM FACFAS from Last 3 Months Social History Tobacco Use Types Packs/Day Years Used Date Smoking Tobacco: Never Assessed Sex and Gender Information Value Date Recorded Sex Assigned at Not on file Legal Sex Male 7:20 PM EDT Gender Identity Not on file Sexual Orientation Not on file Plan of Treatment Not on file Insurance [employer] MED[employer]ARE Care Teams Vice President Of Instruction Relationship Specialty Start Date End Date Dara Eisenberg NP [address] [place] [phone] PCP - General Family Medicine 11/11/24
--- OUTSIDE RECORDS SUMMARY | 2025-04-25 13:58 | XMS_ITS | Clinical Summary ---
Author Organization [facility] Address [address] [place] [address] Care Team Providers Care Claim Inspector Name Role Phone Unavailable Primary Care Provider [...]
--- OUTSIDE RECORDS SUMMARY | 2025-04-25 14:06 | XMS_ITS | CCD ---
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 Normal 37.7-49.0 [facility] Comment on above: Performed By: #### 2 914778 #### [facility] [address] [place] [address] Hemoglobin (Bld) [Mass/Vol] 13.2 g/dL Low 13.5-17.5 [facility] Comment on above: Performed By: #### 2 134557 #### [facility] [address] [place] [address] Lymph Absolute 1.1 E9/L Normal 1.0-4.0 [facility] Comment on above: Performed By: #### 2 [id number] #### [facility] [address] [place] [address] Lymphocytes/100 WBC (Bld) 9.3 % Low 14.0-50.0 [facility] Comment on above: Performed By: #### 2 155088 #### [facility] [address] [place] [address] MCH (RBC) [Entitic mass] 31.6 pg Normal 27.0-34.0 [facility] Comment on above: Performed By: #### 2 865947 #### [facility] [address] [place] [address] MCHC (RBC) [Mass/Vol] 34.5 g/dL Normal 31.4-36.0 [facility] Comment on above: Performed By: #### 2 908197 #### [facility] [address] [place] [address] MCV (RBC) [Entitic vol] 91.5 fL Normal 80.0-100.0 [facility] Comment on above: Performed By: #### 2 990727 #### [facility] [address] [place] [address] Pepin Absolute 1.2 E9/L High 0.2-1.0 [facility] Comment on above: Performed By: #### 2 641782 #### [facility] [address] [place] [address] Monocytes/100 WBC (Bld) 10.0 % Normal 4.0-14.0 [facility] Comment on above: Performed By: #### 2 529335 #### [facility] [address] [place] [address] Neutro Absolute 9.1 E9/L High 2.0-7.5 [facility] Comment on above: Performed By: #### 2 510340 #### [facility] [address] [place] [address] Neutro Auto 78.9 % High 36.0-75.0 [facility] Comment on above: Performed By: #### 2 088657 #### [facility] [address] [place] [address] Platelet 228.0 E9/L Normal 150.0-500.0 [facility] Comment on above: Performed By: #### 2 617657 #### [facility] [address] [place] [address] Platelet mean volume (Bld) [Entitic vol] 8.9 fL Normal 6.4-10.8 [facility] Comment on above: Performed By: #### 2 489587 #### [facility] [address] [place] [address] RBC 4.2 E12/L Low 4.3-5.9 [facility] Comment on above: Performed By: #### 2 576614 #### [facility] [address] [place] [address] WBC 11.5 E9/L High 4.0-11.0 [facility] Comment on above: Performed By: #### 2 659613 #### [facility] [address] [place] [address] CKon 01-25-2025 Total CK 64 Int._Unit/L Normal 14-261 [facility] Comment on above: Performed By: #### 2 356597 #### [facility] [address] [place] [address] CMPon 01-25-2025 Albumin [Mass/Vol] 2.9 g/dL Low 3.3-5.0 [facility] Comment on above: Performed By: #### 2 724696 #### [facility] [address] [place] [address] Albumin/Globulin [Mass ratio] 1.0 {ratio} Low 1.1-2.2 [facility] Comment on above: Performed By: #### 2 330713 #### [facility] [address] [place] [address] Alk Phos 85 Int._Unit/L Normal 21-98 [facility] Comment on above: Performed By: #### 2 218536 #### [facility] [address] [place] [address] ALT 16 Int._Unit/L Normal 6-46 [facility] Comment on above: Performed By: #### 2 895659 #### [facility] [address] [place] [address] Anion gap [Moles/Vol] 11 mmol/L Normal 6-16 [facility] Comment on above: Performed By: #### 2 525548 #### [facility] [address] [place] [address] AST 12 Int._Unit/L Normal 5-43 [facility] Comment on above: Performed By: #### 2 605612 #### [facility] [address] [place] [address] Bili Total 0.5 mg/dL Normal 0.0-1.1 [facility] Comment on above: Performed By: #### 2 416625 #### [facility] [address] [place] [address] BUN/Creat Ratio 37 No Units High 10-20 [facility] Comment on above: Performed By: #### 2 376253 #### [facility] [address] [place] [address] Calcium [Mass/Vol] 8.9 mg/dL Normal 8.9-11.1 [facility] Comment on above: Performed By: #### 2 846300 #### [facility] [address] [place] [address] Chloride [Moles/Vol] 100 mmol/L Low 101-111 [facility] Comment on above: Performed By: #### 2 283086 #### [facility] [address] [place] [address] CO2 [Moles/Vol] 25 mmol/L Normal 21-31 [facility] Comment on above: Performed By: #### 2 267174 #### [facility] [address] [place] [address] Creatinine [Mass/Vol] 1.2 mg/dL Normal 0.5-1.3 [facility] Comment on above: Performed By: #### 2 917420 #### [facility] [address] [place] [address] Globulin (S) [Mass/Vol] 2.8 g/dL Normal 1.4-4.0 [facility] Comment on above: Performed By: #### 2 362363 #### [facility] [address] [place] [address] Glucose [Mass/Vol] 345 mg/dL High 55-199 [facility] Comment on above: Performed By: #### 2 181866 #### [facility] [address] [place] [address] Potassium [Moles/Vol] 3.6 mmol/L Normal 3.5-5.3 [facility] Comment on above: Performed By: #### 2 216573 #### [facility] [address] [place] [address] Protein [Mass/Vol] 5.7 g/dL Low 6.0-7.8 [facility] Comment on above: Performed By: #### 2 249820 #### [facility] [address] [place] [address] Sodium [Moles/Vol] 132 mmol/L Low 135-145 [facility] Comment on above: Performed By: #### 2 183499 #### [facility] [address] [place] [address] Urea nitrogen [Mass/Vol] 44 mg/dL High 5- [facility] Comment on above: Performed By: #### 2 417913 #### [facility] [address] [place] [address] Capillary Glucose POCon 07-0 Glucose [Mass/Vol] 357 mg/dL High 55-99 [facility] Comment on above: Result Comment: Cindy calle RN/ Performed By: #### 2 [id number] #### [facility] [address] [place] [address] Glucose [Mass/Vol] 351 mg/dL High 55-99 [facility] Comment on above: Result Comment: Cindy GAMBOA Performed By: #### 2 [id number] #### [facility] [address] [place] [address] Glucose [Mass/Vol] 277 mg/dL High 55-99 [facility] Comment on above: Result Comment: Cindy GAMBOA Performed By: #### 2 [id number] #### [facility] [address] [place] [address] Glucose [Mass/Vol] 289 mg/dL High 55-99 [facility] Comment on above: Result Comment: Cindy GAMBOA Performed By: #### 2 [id number] #### [facility] [address] [place] [address] Glucose [Mass/Vol] 282 mg/dL High 55-99 [facility] Comment on above: Result Comment: Cindy calle RN/ Performed By: #### 2 [id number] #### [facility] [address] [place] [address] Glucose [Mass/Vol] 345 mg/dL High 55-99 [facility] Comment on above: Performed By: #### 2 [id number] #### [facility] [address] [place] [address] Glucose [Mass/Vol] 466 mg/dL Abnormal 55-99 [facility] Comment on above: Performed By: #### 2 [id number] #### [facility] [address] [place] [address] [id number] 01-25-2025 HbA1c (Bld) [Mass fraction] 12.6 % High <=5.9 [facility] Comment on above: Performed By: #### 7 [id number] #### [facility] [address] [place] [address] Interdisciplinary Note - Giovany e Manageron 01-25-2025 Interdisciplinary Note - [employer]or Interdisciplinary Note - [employer]or JOSÉ spoke with patient in room. No family in room. Patient is alert and oriented and participates in discharge planning. Patient is from home lives with friend Sam. Dr. Ding is following, see notes, saw patient earlier today. Patient was admitted on 01/24/25 , dx with sepsis. Has a consult with Voucher Clerk. Patient verified PCP, insurance and DME, FWW [...] CORRECTION: HE HAS HIS OWN MACHINE Normal [facility] Comment on above: Result Comment: Elec tronically Signed By: Zuleyma VALADEZ, Yamileth\.marco\Date and Time Signed: 01/25/25 14:53 EDT Interdisciplinary Note - [employer]or Interdisciplinary Note - [employer]or JOSÉ spoke with patient in room. No family in room. Patient is alert and oriented and participates in discharge planning. Patient is from home lives with friend Sam. Dr. Ding is following, see notes, saw patient earlier today. Patient was admitted on 01/24/25 , dx with sepsis. Has a consult with Voucher Clerk. Patient verified PCP, insurance and DME, FWW [...] updated, and SW contact information provided. Normal [facility] Comment on above: Result Comment: Elec tronically Signed By: Zuleyma VALADEZ, Yamileth\.br\Date and Time Signed: 01/25/25 10:44 EDT PTon 01-25-2025 INR Coag (PPP) [Relative time] 1.00 {INR} Invalid Interpretation Code [facility] Comment on above: Result Comment: INR results are specifically intended to assess patients stabilized on long-term Anticoagulation therapy suggested INR???s ???Less Intensive Anticoagulation??? 2.0 ??? 3.0 Conventional Range 3.0 ??? 4.5 Performed By: #### 2 [id number] #### [facility] [address] [place] [address] PT 11.2 second(s) Normal 9.4-12.5 [facility] Comment on above: Result Comment: [...] the same coagulation reagent and instrumentation as [facility]. Currently there are no coagulation studies available worldwide for children to 14 days, and no normal ranges. Performed By: #### 2 187954 #### [facility] [address] [place] [address] eGFRon 01-25-2025 eGFR 67 mL/min/1.73 m2 Normal >=59 [facility] Comment on above: Performed By: #### 1 [id number] #### [facility] [address] [place] [address] BMPon 01-24-2025 Anion gap [Moles/Vol] 12 mmol/L Normal 6-16 [facility] Comment on above: Performed By: #### 2 687559 #### [facility] [address] [place] [address] BUN/Creat Ratio 41 No Units High 10-20 [facility] Comment on above: Performed By: #### 2 697261 #### [facility] [address] [place] [address] Calcium [Mass/Vol] 8.7 mg/dL Low 8.9-11.1 [facility] Comment on above: Performed By: #### 2 734929 #### [facility] [address] [place] [address] Chloride [Moles/Vol] 95 mmol/L Low 101-111 [facility] Comment on above: Performed By: #### 2 773692 #### [facility] [address] [place] [address] CO2 [Moles/Vol] 25 mmol/L Normal 21-31 [facility] Comment on above: Performed By: #### 2 287262 #### [facility] [address] [place] [address] Creatinine [Mass/Vol] 1.4 mg/dL High 0.5-1.3 [facility] Comment on above: Performed By: #### 2 115683 #### [facility] [address] [place] [address] Glucose [Mass/Vol] 431 mg/dL High 55-199 [facility] Comment on above: Performed By: #### 2 775641 #### [facility] [address] [place] [address] Potassium [Moles/Vol] 3.8 mmol/L Normal 3.5-5.[address] [facility] Comment on above: Performed By: #### 2 704692 #### [facility] [address] [place] [address] Sodium [Moles/Vol] 128 mmol/L Low 135-145 [facility] Comment on above: Performed By: #### 2 659464 #### [facility] [address] [place] [address] Urea nitrogen [Mass/Vol] 57 mg/dL High 5-21 [facility] Comment on above: Performed By: #### 2 350435 #### [facility] [address] [place] [address] CBC w/ Auto Diffon 5 Basophil Absolute 0.1 E9/L Normal 0.0-0.2 [facility] Comment on above: Performed By: #### 2 561300 #### [facility] [address] [place] [address] Basophils/100 WBC (Bld) 0.5 % Normal 0.0-2.0 [facility] Comment on above: Performed By: #### 2 056360 #### [facility] [address] [place] [address] Eos Absolute 0.1 E9/L Normal 0.0-0.5 [facility] Comment on above: Performed By: #### 2 440219 #### [facility] [address] [place] [address] Eosinophils/100 WBC (Bld) 0.5 % Normal 0.0-8.0 [facility] Comment on above: Performed By: #### 2 985968 #### [facility] [address] [place] [address] Erythrocyte distribution width (RBC) [Ratio] 17.1 % High 10.9-14.2 [facility] Comment on above: Performed By: #### 2 016427 #### [facility] [address] [place] [address] Hematocrit (Bld) [Volume fraction] 43.6 % Normal 37.7-49.0 [facility] Comment on above: Performed By: #### 2 921014 #### [facility] [address] [place] [address] Hemoglobin (Bld) [Mass/Vol] 14.6 g/dL Normal 13.5-17.5 [facility] Comment on above: Performed By: #### 2 524085 #### [facility] [address] [place] [address] Lymph Absolute 1.1 E9/L Normal 1.0-4.0 [facility] Comment on above: Performed By: #### 2 580502 #### [facility] [address] [place] [address] Lymphocytes/100 WBC (Bld) 6.1 % Low 14.0-50.0 [facility] Comment on above: Performed By: #### 2 520007 #### [facility] [address] [place] [address] MCH (RBC) [Entitic mass] 30.8 pg Normal 27.0-34.0 [facility] Comment on above: Performed By: #### 2 355027 #### [facility] [address] [place] [address] MCHC (RBC) [Mass/Vol] 33.6 g/dL Normal 31.4-36.0 [facility] Comment on above: Performed By: #### 2 100105 #### [facility] [address] [place] [address] MCV (RBC) [Entitic vol] 91.8 fL Normal 80.0-100.0 [facility] Comment on above: Performed By: #### 2 922050 #### [facility] [address] [place] [address] Pepin Absolute 1.3 E9/L High 0.2-1.0 [facility] Comment on above: Performed By: #### 2 737684 #### [facility] [address] [place] [address] Monocytes/100 WBC (Bld) 7.6 % Normal 4.0-14.0 [facility] Comment on above: Performed By: #### 2 965633 #### [facility] [address] [place] [address] Neutro Absolute 14.8 E9/L High 2.0-7.5 [facility] Comment on above: Performed By: #### 2 482606 #### [facility] [address] [place] [address] Neutro Auto 85.3 % High 36.0-75.0 [facility] Comment on above: Performed By: #### 2 610948 #### [facility] [address] [place] [address] Platelet 269.0 E9/L Normal 150.0-500.0 [facility] Comment on above: Performed By: #### 2 299632 #### [facility] [address] [place] [address] Platelet mean volume (Bld) [Entitic vol] 8.7 fL Normal 6.4-10.8 [facility] Comment on above: Performed By: #### 2 425944 #### [facility] [address] [place] [address] RBC 4.8 E12/L Normal 4.3-5.9 [facility] Comment on above: Performed By: #### 2 529172 #### [facility] [address] [place] [address] WBC 17.4 E9/L High 4.0-11.0 [facility] Comment on above: Performed By: #### 2 888453 #### [facility] [address] [place] [address] Capillary Glucose POCon 07-0 Glucose [Mass/Vol] 490 mg/dL Abnormal 55-99 [facility] Comment on above: Result Comment: Cindy calle RN/MD Performed By: #### 2 [id number] #### [facility] [address] [place] [address] ED Clinical Summaryon 2024 ED Clinical Summary ED Clinical Summary [address] [address] ED Clinical Summary Person Information Name: TYLER SMITH/[facility]_Andrés Age: 64 Years : 1960 Sex: Male Language: Peruvian PCP: DARA EISENBERG CNP Marital Status: Single Phone: [phone] Visit Id: Visit Reason: Medical problem - major; VERICOSE VEIN TOURNIQUET Speciality: Acuity: 2 Enc Type: Inpatient Med Service: Medical Arrival: 01/24/2025 11:29:33 Discharge: LOS: 000 07:25 Checkin: 01/24/2025 11:29:33 Checkout: 01/24/2025 18:54:25 Dispo Type: Admitted as IP to this [facility] EVENTS: Event Name Event Status [...] 18:23:37 Patient Care Request 01/24/2025 18:23:37 ADDRESS: [address] [place] [address] PHYS DOC NOTES: MEDICAL INFORMATION: Prescriptions Given: New Medications [id number], [address], [place] [id number], [phone] doxycycline (doxycycline hyclate 100 mg Cap) 1 Capsules By Mouth 2 times a day for 7 Days. Refills: 0. PATIENT EDUCATION INFORMATION: Instructions: Cellulitis, Adult, [id number]; Bleeding Varicose Veins Follow up: With: Address: When: DARA EISENBERG [address], [address] [place] [phone] Business (1) In 3 days 01/27/2025 Comments: Call Dr for diagnosis based follow up DIAGNOSIS: 1:Severe sepsis; 2:Cellulitis of leg; 3:KRISTINE (acute kidney injury); 4:Atrial fibrillation with RVR; 5: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; 6:Hyponatremia; 7:Noncompliance with medications Normal [facility] ED Note-Physicianon 01-25-20 ED Note-Physician ED [...] of the patient. Sepsis Data [x] Patient's [place] body weight was considered in sepsis fluid [...] other nonco (more content not included)... Normal [facility] Comment on above: Result Comment: Elec tronically Signed By: Puneet Jung PA-C.br\Date and Time Signed: 01/24/25 13:02 EDT\.br\Electronically Co-Signed By: Puneet Jung PA-C.br\Date and Time Co-Signed: 01/24/25 15:25 EDT\.br\Electronically Co-Signed By: Puneet Jung PA-C.br\Date and Time Co-Signed: 01/24/25 16:27 EDT\.br\Electronically Co-Signed By: Justine Otto, Manuel Mathis\.br\Date and Time Co-Signed: 01/24/25 18:08 EDT ED Patient Summaryon 025 ED Patient Summary ED Patient Summary [place] [address] Patient Discharge Instructions Person Information Name: TYLER SMITH Age: 64 Years Arrival Date: 01/24/2025 11:29:33 Discharge Diagnosis: 1:Severe sepsis; 2:Cellulitis of leg; 3:KRISTINE (acute kidney injury); 4:Atrial fibrillation with RVR; 5: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; 6:Hyponatremia; 7:Noncompliance with medications Primary Care Physician: DARA EISENBERG CNP Provider Information Primary Provider: Manuel Fletcher M.D. Advanced Grades 9 12 Tutor:Puneet Jung PA-C The exam and treatment you received in the Emergency Department were for an urgent problem and are not intended as complete care. It is important that you follow up with a doctor, nurse practitioner, or physician???s broker assistant for ongoing care. If your symptoms [...] With: Address: When: DARA EISENBERG [address] [facility], [place] [phone] Business (1) In 3 days 01/27/2025 Comments: Call Dr for diagnosis based follow up In the event that this physician does not participate in your insurance network, please consult with your insurance company to find a nearby participating provider. Patient Education Materials: Cellulitis, Adult, Kkgi-mq-Gejx; Bleeding Varicose Veins A MESSAGE TO ALL PATIENTS REGARDING OPIOIDS PRESCRIPTION OPIOIDS: WHAT YOU NEED TO KNOW Prescription opioids can be used to help relieve bqhydkmr-lr-pdmcut pain and are often prescribed following a [...] toilet, f (more content not included)... Normal [facility] Lactic Acidon 01-24-2025 Lactic Acid Lvl 1.0 mmol/L Normal 0.5-2.2 [facility] Comment on above: Performed By: #### 2 [id number] #### [facility] [address] [place] [address] PT & PTTon 01-24-2025 INR Coag (PPP) [Relative time] 1.03 {INR} Invalid Interpretation Code [facility] Comment on above: Result Comment: INR results are specifically intended to assess patients stabilized on long-term Anticoagulation therapy suggested INR???s ???Less Intensive Anticoagulation??? 2.0 ??? 3.0 Conventional Range 3.0 ??? 4.5 Performed By: #### 1 [id number] #### [facility] [address] [place] [address] PT 11.5 second(s) Normal 9.4-12.5 [facility] Comment on above: Result Comment: [...] ranges were obtained from a study by everardo Otriz prepared from 1437 samples obtained at 7 different centers using the same coagulation reagent and instrumentation as [facility]. Currently there are no coagulation studies available worldwide for children to 14 days, and no normal ranges. Performed By: #### 1 [id number] #### [facility] [address] [place] [address] PTT 27.7 second(s) Normal 25.1-36.5 [facility] Comment on above: Result Comment: [...] the same coagulation reagent and instrumentation as [facility]. Currently there are no coagulation studies available worldwide for children to 14 days, and no normal ranges. Heparin therapeutic range (represented by Anti-Factor Xa activity of 0.2 - 0.4 U/mL) corresponds to PTT of 56.6 - 109.0 sec. Performed By: #### 1 [id number] #### [facility] [address] [place] [address] Pre-Arrival Noteon Pre-Arrival Note Pre-Arrival Note Pre-Arrival Summary Name: , Current Date: 01/24/2025 11:30:22 EDT Gender: Date of : Age: Pre-Arrival Type: EMS ETA: 01/24/2025 11:50:00 EDT Primary Care Physician: Presenting Problem: varicose vein tourniquet Pre-Arrival User: [address] Referring Source: Location: [place] Completion Date/Time: 01/24/2025 11:20:00 [facility] Emergency Department Pre-Hospital Report Form Vital Signs: Pre-Hospital Report: Treatment in Route: Response to Treatment: Misc. Issues: Normal [facility] Procalcitoninon 01-24-2025 Procalcitonin .09 ng/mL Normal .00-.50 [facility] Comment on above: Result Comment: <0.5 ng/mL [...] to 24 hours. Performed By: #### 2 [id number] #### [facility] [address] [place] [address] Troponin 0 Hr.on 01-24-2025 Troponin HS 4.60 pg/mL Low 15.90-38.40 [facility] Comment on above: Result Comment: The 95% CI (Confidence Interval) PPV (Positive Predictive Value) for myocardial infarction in females is 38 pg/mL, in males 51 pg/mL. The results should be used in conjunction with clinical conditions of myocardial infarction. (Access High Sensitivity Troponin I Instructions For Use, Charli Clearwater, February 2018) Performed By: #### 1 [id number] #### [facility] [address] [place] [address] UA with Cult Rflxon 01-25-20 25 Color (U) Light-Yellow Normal Yellow [facility] Comment on above: Result Comment: Micr oscopic readings are only performed on those samples that meet specific criteria set forth by [facility]. Performed By: #### 4 [id number] #### [facility] [address] [place] [address] Ketones Ql (U) Negative Normal Negative [facility] Comment on above: Performed By: #### 4 [id number] #### [facility] [address] [place] [address] UA Blood 1+ mg/dL Abnormal Negative [facility] Comment on above: Performed By: #### 4 [id number] #### [facility] [address] [place] [address] UA Clarity Clear Normal Clear [facility] Comment on above: Performed By: #### 4 [id number] #### [facility] [address] [place] [address] UA Glucose 4+ mg/dL Abnormal Negative [facility] Comment on above: Performed By: #### 4 [id number] #### [facility] [address] [place] [address] UA Leuk Est Negative Normal Negative [facility] Comment on above: Performed By: #### 4 [id number] #### [facility] [address] [place] [address] UA Mucous Trace Normal Negative [facility] Comment on above: Performed By: #### 4 [id number] #### [facility] [address] [place] [address] UA Nitrite Negative Normal Negative [facility] Comment on above: Performed By: #### 4 [id number] #### [facility] [address] [place] [address] UA pH 5.0 Invalid Interpretation Code 5.0-9.0 [facility] Comment on above: Performed By: #### 4 [id number] #### [facility] [address] [place] [address] UA Protein Negative Normal Negative [facility] Comment on above: Performed By: #### 4 [id number] #### [facility] [address] [place] [address] UA RBC 4-20 Abnormal 0-3 [facility] Comment on above: Performed By: #### 4 [id number] #### [facility] [address] [place] [address] UA Spec Grav 1.020 Invalid Interpretation Code 1.005-1.030 [facility] Comment on above: Performed By: #### 4 [id number] #### [facility] [address] [place] [address] UA Urobilinogen Negative Normal Negative [facility] Comment on above: Performed By: #### 4 [id number] #### [facility] [address] [place] [address] UA WBC 0-5 Normal 0-5 [facility] Comment on above: Performed By: #### 4 [id number] #### [facility] [address] [place] [address] Urobilinogen (U) [Mass/Vol] Negative Normal Negative [facility] Comment on above: Performed By: #### 4 [id number] #### [facility] [address] [place] [address] UA Spec Desc Clean Catch Normal [facility] Comment on above: Performed By: #### 4 [id number] #### [facility] [address] [place] [address] XR Chest 2 Viewson XR Chest 2 [...] Krishna Ray MD Transcribed by: [employer]MU Technologist: STITCHDOWN TOE FORMER Normal [facility] eGFRon 01-24-2025 eGFR 55 mL/min/1.73 m2 Low >=59 [facility] Comment on above: Performed By: #### 1 [id number] #### [facility] [address] [place] [address] HbA1c HPLC (Bld) [Mass fract ion]on 11-05-2024 HbA1c (Bld) [Mass fraction] 10.1 % [place] CBC WITH AUTO DIFFERENTIALon 09-09-2024 Basophils (Bld) [#/Vol] 0.05 10*3/uL Normal 0.00-0.20 [facility] Comment on above: Performed By: #### L [id number] ####[facility] (BEAKER)[address] [place] [address] Basophils/100 WBC (Bld) 0.6 % Normal 0.0-1.0 [facility] Comment on above: Performed By: #### L [id number] ####[facility] (BEAKER)[address] [place] [address] Eosinophils (Bld) [#/Vol] 0.43 10*3/uL Normal 0.00-0.50 [facility] Comment on above: Performed By: #### L [id number] ####[facility] (BEAKER)[address] [place] [address] Eosinophils/100 WBC (Bld) 5.0 % Normal 0.0-6.0 [facility] Comment on above: Performed By: #### L [id number] ####[facility] (BEAKER)[address] [place] [address] Erythrocyte distribution width (RBC) [Ratio] 15.1 % High 11.5-15.0 [facility] Comment on above: Performed By: #### L [id number] ####[facility] (BEAKER)[address] [place] [address] ERYTHROCYTE MEAN CORPUSCULAR HEMOGLOBIN CONCENTRATION (G/DL) BY AUTOMATED 31.1 g/dL Low 32.0-35.0 [facility] Comment on above: Performed By: #### L [id number] ####[facility] (BEAKER)[address] [place] [address] Hematocrit (Bld) [Volume fraction] 48.8 % Normal 39.0-55.0 [facility] Comment on above: Performed By: #### L [id number] ####[facility] (BE[facility]ER)[address] [place] [address] Hemoglobin (Bld) [Mass/Vol] 15.2 g/dL Normal 13.0-17.0 [facility] Comment on above: Performed By: #### L [id number] ####[facility] ([facility]ER)[address] [place] [address] Immature granulocytes (Bld) [#/Vol] 0.05 10*3/uL Normal 0.00-0.20 [facility] Comment on above: Performed By: #### L [id number] ####[facility] (BE[facility]ER)[address] [place] [address] Immature granulocytes/100 WBC (Bld) 0.6 % Normal 0.0-1.0 [facility] Comment on above: Performed By: #### L [id number] ####[facility] (BE[facility]ER)[address] [place] [address] Lymphocytes (Bld) [#/Vol] 1.59 10*3/uL Normal 1.20-4.00 [facility] Comment on above: Performed By: #### L [id number] ####[facility] (BE[facility]ER)[address] [place] [address] Lymphocytes/100 WBC (Bld) 18.5 % Low 20.0-45.0 [facility] Comment on above: Performed By: #### L [id number] ####[facility] (BEAKER)[address] [place] [address] MCH (RBC) [Entitic mass] 28.8 pg Normal 27.0-33.0 [facility] Comment on above: Performed By: #### L [id number] ####[facility] (BEAKER)[address] [place] [address] MCV (RBC) [Entitic vol] 92.6 fL Normal 82.0-98.0 [facility] Comment on above: Performed By: #### L [id number] ####[facility] [place] [address] Monocytes (Bld) [#/Vol] 0.90 10*3/uL Normal 0.10-1.00 [facility] Comment on above: Performed By: #### L [id number] ####[facility] ([facility])[address] [place] [address] Monocytes/100 WBC (Bld) 10.5 % Normal 5.0-12.0 [facility] [place] Comment on above: Performed By: #### L [id number] ####[facility] ([facility])[address] [place] [address] Neutrophils (Bld) [#/Vol] 5.56 10*3/uL Normal 1.60-7.60 [facility] Comment on above: Performed By: #### L [id number] ####[facility] ([facility])[address] [place] [address] Neutrophils/100 WBC (Bld) 64.8 % Normal 40.0-72.0 [facility] Comment on above: Performed By: #### L [id number] ####[facility] ([facility])[address] [place] [address] NRBC (PER 100 WBCS) BY AUTOMATED COUNT 0.0 % Normal 0 [facility] Comment on above: Performed By: #### L [id number] ####[facility] ([facility] [place] [address] PLATELETS (10*3/UL) IN BLOOD AUTOMATED COUNT 208 10*3/uL Normal 150-400 [facility] Comment on above: Performed By: #### L [id number] ####[facility] ([facility] [place] [address] RBC (Bld) [#/Vol] 5.27 10*6/uL Normal 4.20-5.70 [facility] Comment on above: Performed By: #### L [id number] ####[facility] ([facility] [place] [address] WBC (Bld) [#/Vol] 8.58 10*3/uL Normal 4.00-10.60 [facility] Comment on above: Performed By: #### L [id number] ####[facility] ([facility] [place] [address] DSon 09-09-2024 DS Normal [facility] MAGNESIUMon 09-09-2024 Magnesium [Mass/Vol] 1.7 mg/dL Low 1.9-2.7 [facility] Comment on above: Performed By: #### L [id number] ####[facility] ([facility])[address] [place] [address] PHOSPHORUSon 09-09-2024 Magnesium [Mass/Vol] 3.2 mg/dL Normal 2.5-5.0 [facility] Comment on above: Performed By: #### L [id number] ####[facility] ([facility])[address] [place] [address] POCT GLUCOSE METER UNSOLICIT ED RESULTSon 09-09-2024 Glucose [Mass/Vol] 114 mg/dL High 70-[address] [facility] Comment on above: Order Comment: Waive d Testing in the ED is performed under the ED CLIA certificate #[id number]. Result Comment: ndub ois3 Performed By: #### L [id number] ####[facility] [place] [address] 30on 09-08-2024 30 Normal [facility] 30 Normal [facility] CBC WITH AUTO DIFFERENTIALon 09-08-2024 Basophils (Bld) [#/Vol] 0.06 10*3/uL Normal 0.00-0.20 [facility] Comment on above: Performed By: #### L [id number] ####[facility] [place] [address] Basophils/100 WBC (Bld) 0.8 % Normal 0.0-1.0 [facility] Comment on above: Performed By: #### L [id number] ####[facility] ([facility])[address] [place] [address] Eosinophils (Bld) [#/Vol] 0.43 10*3/uL Normal 0.00-0.50 [facility] Comment on above: Performed By: #### L [id number] ####[facility] (BE[facility]ER)[address] [place] [address] Eosinophils/100 WBC (Bld) 5.5 % Normal 0.0-6.0 [facility] Comment on above: Performed By: #### L [id number] ####[facility] ([facility]ER)[address] [place] [address] Erythrocyte distribution width (RBC) [Ratio] 15.2 % High 11.5-15.0 [facility] Comment on above: Performed By: #### L [id number] ####[facility] (BE[facility]ER)[address] [place] [address] ERYTHROCYTE MEAN CORPUSCULAR HEMOGLOBIN CONCENTRATION (G/DL) BY AUTOMATED 30.8 g/dL Low 32.0-35.0 [facility] Comment on above: Performed By: #### L [id number] ####[facility] ([facility]ER)[address] [place] [address] Hematocrit (Bld) [Volume fraction] 45.4 % Normal 39.0-55.0 [facility] Comment on above: Performed By: #### L [id number] ####[facility] (BE[facility]ER)[address] [place] [address] Hemoglobin (Bld) [Mass/Vol] 14.0 g/dL Normal 13.0-17.0 [facility] Comment on above: Performed By: #### L [id number] ####[facility] ([facility]ER)[address] [place] [address] Immature granulocytes (Bld) [#/Vol] 0.03 10*3/uL Normal 0.00-0.20 [facility] Comment on above: Performed By: #### L [id number] ####[facility] ([facility] [place] [address] Immature granulocytes/100 WBC (Bld) 0.4 % Normal 0.0-1.0 [facility] Comment on above: Performed By: #### L [id number] ####[facility] ([facility])[address] [place] [address] Lymphocytes (Bld) [#/Vol] 1.82 10*3/uL Normal 1.20-4.00 [facility] Comment on above: Performed By: #### L [id number] ####[facility] ([facility])[address] [place] [address] Lymphocytes/100 WBC (Bld) 23.2 % Normal 20.0-45.0 [facility] Comment on above: Performed By: #### L [id number] ####[facility] ([facility] [place] [address] MCH (RBC) [Entitic mass] 29.1 pg Normal 27.0-33.0 [facility] Comment on above: Performed By: #### L [id number] ####[facility] (BEAKER)[address] [place] [address] MCV (RBC) [Entitic vol] 94.4 fL Normal 82.0-98.0 [facility] [place] Comment on above: Performed By: #### L [id number] ####[facility] ([facility] [place] [address] Monocytes (Bld) [#/Vol] 0.88 10*3/uL Normal 0.10-1.00 [facility] Comment on above: Performed By: #### L [id number] ####[facility] (BEAKER)[address] [place] [address] Monocytes/100 WBC (Bld) 11.2 % Normal 5.0-12.0 [facility] [place] Comment on above: Performed By: #### L [id number] ####[facility] ([facility])[address] [place] [address] Neutrophils (Bld) [#/Vol] 4.62 10*3/uL Normal 1.60-7.60 [facility] Comment on above: Performed By: #### L [id number] ####[facility] ([facility])[address] [address] Neutrophils/100 WBC (Bld) 58.9 % Normal 40.0-72.0 [facility] Comment on above: Performed By: #### L [id number] ####[facility] ([facility])[address] [address] NRBC (PER 100 WBCS) BY AUTOMATED COUNT 0.0 % Normal 0 [facility] Comment on above: Performed By: #### L [id number] ####[facility] ([facility])[address] [place] [address] PLATELETS (10*3/UL) IN BLOOD AUTOMATED COUNT 231 10*3/uL Normal 150-400 [facility] Comment on above: Performed By: #### L [id number] ####[facility] ([facility])[address] [address] RBC (Bld) [#/Vol] 4.81 10*6/uL Normal 4.20-5.70 [facility] Comment on above: Performed By: #### L [id number] ####[facility] ([facility])[address] [address] WBC (Bld) [#/Vol] 7.84 10*3/uL Normal 4.00-10.60 [facility] Comment on above: Performed By: #### L [id number] ####[facility] ([facility])[address] [place] [address] MAGNESIUMon 09-08-2024 Magnesium [Mass/Vol] 1.6 mg/dL Low 1.9-2.7 [facility] Comment on above: Performed By: #### L [id number] ####[facility] ([facility])[address] [place] [address] NURSNOTEon 09-08-2024 NURSNOTE Normal [facility] PHOSPHORUSon 09-08-2024 Magnesium [Mass/Vol] 3.4 mg/dL Normal 2.5-5.0 [facility] Comment on above: Performed By: #### L [id number] ####[facility] ([facility])[address] [place] [address] POCT GLUCOSE METER UNSOLICIT ED RESULTSon 09-08-2024 Glucose [Mass/Vol] 244 mg/dL High 70-[address] [facility] Comment on above: Order Comment: Waive d Testing in the ED is performed under the ED CLIA certificate #[id number]. Result Comment: droc kol Performed By: #### L [id number] ####[facility] ([facility])[address] [place] [address] Glucose [Mass/Vol] 165 mg/dL High 70-[address] [facility] Comment on above: Order Comment: Waive d Testing in the ED is performed under the ED CLIA certificate #[id number]. Result Comment: ndub ois3 Performed By: #### L [id number] ####[facility] ([facility])[address] [place] [address] Glucose [Mass/Vol] 110 mg/dL High 70-[address] [facility] Comment on above: Order Comment: Waive d Testing in the ED is performed under the ED CLIA certificate #[id number]. Result Comment: ndub ois3 Performed By: #### L [id number] ####[facility] ([facility])[address] [place] [address] Glucose [Mass/Vol] 157 mg/dL High 70-[address] [facility] Comment on above: Order Comment: Waive d Testing in the ED is performed under the ED CLIA certificate #[id number]. Result Comment: ndub ois3 Performed By: #### L [id number] ####[facility] (BEAKER)[address] [address] 30on 09-07-2024 30 Normal [facility] 30 Normal [facility] BASIC METABOLIC PANELon 08-21 Anion gap [Moles/Vol] 9 mmol/L Normal 7-20 [facility] Comment on above: Performed By: #### L [id number] ####[facility] ([facility])[address] [place] [address] Calcium [Mass/Vol] 9.6 mg/dL Normal 8.6-10.[address] [facility] Comment on above: Performed By: #### L [id number] ####[facility] ([facility])[address] [place] [address] Chloride [Moles/Vol] 100 mmol/L Normal 98-107 [facility] Comment on above: Performed By: #### L [id number] ####[facility] ([facility])[address] [place] [address] CO2 [Moles/Vol] 32 mmol/L High 21-31 [facility] Comment on above: Performed By: #### L [id number] ####[facility] ([facility])[address] [place] [address] Creatinine [Mass/Vol] 0.78 mg/dL Normal 0.70-1.30 [facility] Comment on above: Performed By: #### L [id number] ####[facility] ([facility])[address] [place] [address] GLOMERULAR FILTRATION RATE ML/MIN/1.73 SQ M.PREDICTED 99.0 mL/min/1.73m*2 Normal >60.0 [facility] Comment on above: Result Comment: [facility]???s estimated glomerular filtration rate (eGFR) will [...] of individuals. Performed By: #### L [id number] ####[facility] ([facility])[address] [place] [address] Glucose [Mass/Vol] 153 mg/dL High 70-[address] [facility] Comment on above: Performed By: #### L [id number] ####[facility] ([facility])[address] [place] [address] Potassium [Moles/Vol] 4.1 mmol/L Normal 3.5-5.1 [facility] Comment on above: Performed By: #### L [id number] ####[facility] ([facility])[address] [place] [address] Sodium [Moles/Vol] 137 mmol/L Normal 136-[address] [facility] Comment on above: Performed By: #### L [id number] ####[facility] ([facility])[address] [place] [address] Urea nitrogen [Mass/Vol] 19 mg/dL Normal 7-25 [facility] Comment on above: Performed By: #### L [id number] ####[facility] ([facility])[address] [place] [address] UREA NITROGEN/CREATININE (MASS RATIO) IN SER/PLAS 24.4 Normal [facility] Comment on above: Performed By: #### L [id number] ####[facility] ([facility])[address] [place] [address] CBC WITH AUTO DIFFERENTIALon 09-07-2024 Basophils (Bld) [#/Vol] 0.06 10*3/uL Normal 0.00-0.20 [facility] Comment on above: Performed By: #### L [id number] ####[facility] ([facility])[address] [place] [address] Basophils/100 WBC (Bld) 0.8 % Normal 0.0-1.0 [facility] [place] Comment on above: Performed By: #### L [id number] ####[facility] ([facility])[address] [place] [address] Eosinophils (Bld) [#/Vol] 0.49 10*3/uL Normal 0.00-0.50 [facility] Comment on above: Performed By: #### L [id number] ####[facility] (BEAKER)[address] [place] [address] Eosinophils/100 WBC (Bld) 6.8 % High 0.0-6.0 [facility] Comment on above: Performed By: #### L [id number] ####[facility] [place] [address] Erythrocyte distribution width (RBC) [Ratio] 15.3 % High 11.5-15.0 [facility] Comment on above: Performed By: #### L [id number] ####[facility] ([facility] [place] [address] ERYTHROCYTE MEAN CORPUSCULAR HEMOGLOBIN CONCENTRATION (G/DL) BY AUTOMATED 30.9 g/dL Low 32.0-35.0 [facility] Comment on above: Performed By: #### L [id number] ####[facility] (BEAKER)[address] [place] [address] Hematocrit (Bld) [Volume fraction] 45.9 % Normal 39.0-55.0 [facility] Comment on above: Performed By: #### L [id number] ####[facility] (BE[facility]ER)[address] [place] [address] Hemoglobin (Bld) [Mass/Vol] 14.2 g/dL Normal 13.0-17.0 [facility] Comment on above: Performed By: #### L [id number] ####[facility] (BEAKER)[address] [place] [address] Immature granulocytes (Bld) [#/Vol] 0.04 10*3/uL Normal 0.00-0.20 [facility] Comment on above: Performed By: #### L [id number] ####[facility] [place] [address] Immature granulocytes/100 WBC (Bld) 0.6 % Normal 0.0-1.0 [facility] Comment on above: Performed By: #### L [id number] ####[facility] [place] [address] Lymphocytes (Bld) [#/Vol] 1.82 10*3/uL Normal 1.20-4.00 [facility] Comment on above: Performed By: #### L [id number] ####[facility] ([facility])[address] [place] [address] Lymphocytes/100 WBC (Bld) 25.3 % Normal 20.0-45.0 [facility] Comment on above: Performed By: #### L [id number] ####[facility] ([facility])[address] [place] [address] MCH (RBC) [Entitic mass] 29.2 pg Normal 27.0-33.0 [facility] Comment on above: Performed By: #### L [id number] ####[facility] ([facility])[address] [place] [address] MCV (RBC) [Entitic vol] 94.4 fL Normal 82.0-98.0 [facility] [place] Comment on above: Performed By: #### L [id number] ####[facility] ([facility] [place] [address] Monocytes (Bld) [#/Vol] 0.74 10*3/uL Normal 0.10-1.00 [facility] Comment on above: Performed By: #### L [id number] ####[facility] ([facility] [place] [address] Monocytes/100 WBC (Bld) 10.3 % Normal 5.0-12.0 [facility] [place] Comment on above: Performed By: #### L [id number] ####[facility] ([facility] [place] [address] Neutrophils (Bld) [#/Vol] 4.04 10*3/uL Normal 1.60-7.60 [facility] Comment on above: Performed By: #### L [id number] ####[facility] ([facility])[address] [address] Neutrophils/100 WBC (Bld) 56.2 % Normal 40.0-72.0 [facility] Comment on above: Performed By: #### L [id number] ####[facility] ([facility])[address] [address] NRBC (PER 100 WBCS) BY AUTOMATED COUNT 0.0 % Normal 0 [facility] Comment on above: Performed By: #### L [id number] ####[facility] ([facility])[address] [address] PLATELETS (10*3/UL) IN BLOOD AUTOMATED COUNT 234 10*3/uL Normal 150-400 [facility] Comment on above: Performed By: #### L [id number] ####[facility] ([facility])[address] [address] RBC (Bld) [#/Vol] 4.86 10*6/uL Normal 4.20-5.70 [facility] Comment on above: Performed By: #### L [id number] ####[facility] ([facility] [address] WBC (Bld) [#/Vol] 7.19 10*3/uL Normal 4.00-10.60 [facility] Comment on above: Performed By: #### L [id number] ####[facility] ([facility] [place] [address] MAGNESIUMon 09-07-2024 Magnesium [Mass/Vol] 1.7 mg/dL Low 1.9-2.7 [facility] Comment on above: Performed By: #### L [id number] ####[facility] ([facility])[address] [place] [address] NURSNOTEon 09-07-2024 NURSNOTE Signed off to Ian engel RN [facility] NURSNOTE HOB up @ 40 degrees, NO c/o of pain, or SOB at this time Urinal at bedside Call light within reach IV INT'd, intact, no redness noted Pulse ox--97% O 2 cont. On pt. Per nasal cannula @ 4 L/min NC Telemetry cont. On pt [facility] NURSNOTE [facility] NURSNOTE Tried to call Elias, pt's brother, no answer, still, at this time, 3rd attempt [facility] NURSNOTE [facility] NURSNOTE Pt's family brought him a hamburger last night, and the pt. Is eating it now. Pt. Encouraged not to eat, since the hamburger has been sitting out all night. Pt. Cont. To eat burger. [facility] NURSNOTE Eyes closed resp. Easy @ 18/min Pulse ox--98% Telemetry cont. On pt [facility] Orders Onlyon 09-07-2024 Orders Only [id number] Tyler Smith 1960 M Date Provider Department Center 09/07/[id number], JENN*[facility] [place] [facility] No family history on file [facility] PHOSPHORUSon 09-07-2024 Magnesium [Mass/Vol] 3.5 mg/dL Normal 2.5-5.0 [facility] Comment on above: Performed By: #### L [id number] ####[facility] ([facility])[address] [place] [address] POCT GLUCOSE METER UNSOLICIT ED RESULTSon 09-07-2024 Glucose [Mass/Vol] 200 mg/dL High 70-[address] [facility] Comment on above: Order Comment: Waive d Testing in the ED is performed under the ED CLIA certificate #[id number]. Result Comment: droc kol Performed By: #### L [id number] ####[facility] ([facility])[address] [place] [address] Glucose [Mass/Vol] 211 mg/dL High 70-[address] [facility] Comment on above: Order Comment: Waive d Testing in the ED is performed under the ED CLIA certificate #[id number]. Result Comment: [email or web address] Performed By: #### L [id number] ####[facility] ([facility])[address] [place] [address] Glucose [Mass/Vol] 298 mg/dL High 70-[address] [facility] Comment on above: Order Comment: Waive d Testing in the ED is performed under the ED CLIA certificate #[id number]. Result Comment: [email or web address] [email or web address] Performed By: #### L [id number] ####[facility] ([facility] [place] [address] Glucose [Mass/Vol] 155 mg/dL High 70-[address] [facility] Comment on above: Order Comment: Waive d Testing in the ED is performed under the ED CLIA certificate #[id number]. Result Comment: [email or web address] [email or web address] Performed By: #### L [id number] ####[facility] ([facility])[address] [place] [address] 30on 09-06-2024 30 Normal [facility] 30 Normal [facility] BASIC METABOLIC PANELon 08-21 Anion gap [Moles/Vol] 11 mmol/L Normal 7-20 [facility] Comment on above: Performed By: #### L [id number] ####[facility] ([facility] [place] [address] Calcium [Mass/Vol] 9.8 mg/dL Normal 8.6-10.[address] [facility] Comment on above: Performed By: #### L [id number] ####[facility] ([facility])[address] [place] [address] Chloride [Moles/Vol] 98 mmol/L Normal 98-107 [facility] Comment on above: Performed By: #### L [id number] ####[facility] ([facility])[address] [place] [address] CO2 [Moles/Vol] 31 mmol/L Normal 21-31 [facility] Comment on above: Performed By: #### L [id number] ####[facility] ([facility])[address] [place] [address] Creatinine [Mass/Vol] 0.90 mg/dL Normal 0.70-1.30 [facility] Comment on above: Performed By: #### L [id number] ####[facility] ([facility])[address] [place] [address] GLOMERULAR FILTRATION RATE ML/MIN/1.73 SQ M.PREDICTED 94.8 mL/min/1.73m*2 Normal >60.0 [facility] Comment on above: Result Comment: [facility]???s estimated glomerular filtration rate (eGFR) will [...] of individuals. Performed By: #### L [id number] ####[facility] ([facility])[address] [place] [address] Glucose [Mass/Vol] 244 mg/dL High 70-[address] [facility] Comment on above: Performed By: #### L [id number] ####[facility] ([facility])[address] [place] [address] Potassium [Moles/Vol] 3.9 mmol/L Normal 3.5-5.1 [facility] Comment on above: Performed By: #### L [id number] ####[facility] ([facility])[address] [place] [address] Sodium [Moles/Vol] 136 mmol/L Normal 136-[address] [facility] Comment on above: Performed By: #### L [id number] ####[facility] ([facility])[address] [place] [address] Urea nitrogen [Mass/Vol] 18 mg/dL Normal 7-25 [facility] Comment on above: Performed By: #### L [id number] ####[facility] ([facility])[address] [place] [address] UREA NITROGEN/CREATININE (MASS RATIO) IN SER/PLAS 20.0 Normal [facility] Comment on above: Performed By: #### L [id number] ####[facility] ([facility])[address] [place] [address] CBC WITH AUTO DIFFERENTIALon 09-06-2024 Basophils (Bld) [#/Vol] 0.07 10*3/uL Normal 0.00-0.20 [facility] Comment on above: Performed By: #### L [id number] ####[facility] ([facility])[address] [place] [address] Basophils/100 WBC (Bld) 1.0 % Normal 0.0-1.0 [facility] Comment on above: Performed By: #### L [id number] ####[facility] ([facility])[address] [place] [address] Eosinophils (Bld) [#/Vol] 0.40 10*3/uL Normal 0.00-0.50 [facility] Comment on above: Performed By: #### L [id number] ####[facility] ([facility])[address] [place] [address] Eosinophils/100 WBC (Bld) 5.9 % Normal 0.0-6.0 [facility] Comment on above: Performed By: #### L [id number] ####[facility] ([facility])[address] [place] [address] Erythrocyte distribution width (RBC) [Ratio] 15.2 % High 11.5-15.0 [facility] Comment on above: Performed By: #### L [id number] ####[facility] ([facility])[address] [place] [address] ERYTHROCYTE MEAN CORPUSCULAR HEMOGLOBIN CONCENTRATION (G/DL) BY AUTOMATED 30.7 g/dL Low 32.0-35.0 [facility] Comment on above: Performed By: #### L [id number] ####[facility] ([facility])[address] [place] [address] Hematocrit (Bld) [Volume fraction] 47.3 % Normal 39.0-55.0 [facility] Comment on above: Performed By: #### L [id number] ####[facility] ([facility])[address] [place] [address] Hemoglobin (Bld) [Mass/Vol] 14.5 g/dL Normal 13.0-17.0 [facility] Comment on above: Performed By: #### L [id number] ####[facility] ([facility])[address] [place] [address] Immature granulocytes (Bld) [#/Vol] 0.05 10*3/uL Normal 0.00-0.20 [facility] Comment on above: Performed By: #### L [id number] ####[facility] ([facility])[address] [place] [address] Immature granulocytes/100 WBC (Bld) 0.7 % Normal 0.0-1.0 [facility] Comment on above: Performed By: #### L [id number] ####[facility] ([facility])[address] [place] [address] Lymphocytes (Bld) [#/Vol] 1.52 10*3/uL Normal 1.20-4.00 [facility] Comment on above: Performed By: #### L [id number] ####[facility] ([facility])[address] [place] [address] Lymphocytes/100 WBC (Bld) 22.5 % Normal 20.0-45.0 [facility] Comment on above: Performed By: #### L [id number] ####[facility] ([facility])[address] [place] [address] MCH (RBC) [Entitic mass] 29.1 pg Normal 27.0-33.0 [facility] Comment on above: Performed By: #### L [id number] ####[facility] ([facility])[address] [place] [address] MCV (RBC) [Entitic vol] 95.0 fL Normal 82.0-98.0 [facility] [place] Comment on above: Performed By: #### L [id number] ####[facility] ([facility] [place] [address] Monocytes (Bld) [#/Vol] 0.74 10*3/uL Normal 0.10-1.00 [facility] Comment on above: Performed By: #### L [id number] ####[facility] ([facility])[address] [place] [address] Monocytes/100 WBC (Bld) 10.9 % Normal 5.0-12.0 [facility] [place] Comment on above: Performed By: #### L [id number] ####[facility] ([facility])[address] [place] [address] Neutrophils (Bld) [#/Vol] 3.98 10*3/uL Normal 1.60-7.60 [facility] Comment on above: Performed By: #### L [id number] ####[facility] ([facility])[address] [place] [address] Neutrophils/100 WBC (Bld) 59.0 % Normal 40.0-72.0 [facility] Comment on above: Performed By: #### L [id number] ####[facility] ([facility])[address] [place] [address] NRBC (PER 100 WBCS) BY AUTOMATED COUNT 0.0 % Normal 0 [facility] Comment on above: Performed By: #### L [id number] ####[facility] ([facility])[address] [place] [address] PLATELETS (10*3/UL) IN BLOOD AUTOMATED COUNT 251 10*3/uL Normal 150-400 [facility] Comment on above: Performed By: #### L [id number] ####[facility] ([facility])[address] [place] [address] RBC (Bld) [#/Vol] 4.98 10*6/uL Normal 4.20-5.70 [facility] Comment on above: Performed By: #### L [id number] ####[facility] ([facility])[address] [place] [address] WBC (Bld) [#/Vol] 6.76 10*3/uL Normal 4.00-10.60 [facility] Comment on above: Performed By: #### L [id number] ####[facility] ([facility])[address] [facility] [place] [address] MAGNESIUMon 09-06-2024 Magnesium [Mass/Vol] 1.6 mg/dL Low 1.9-2.7 [facility] Comment on above: Performed By: #### L [id number] ####[facility] ([facility])[address] [place] [address] NURSNOTEon 09-06-2024 NURSNOTE Signed off to Ian engel RN--with bedside rounding Pt. Cont. To sit up in a chair at bedside Call light within reach Normal [facility] NURSNOTE Normal [facility] NURSNOTE Pt refused to go yeni k to bed at this time Pt. Cont. To sit up in a chair at bedside No c/o of SOB or nausea at this time Resp. Easy @ 18/min Normal [facility] PHOSPHORUSon 09-06-2024 Magnesium [Mass/Vol] 3.4 mg/dL Normal 2.5-5.0 [facility] Comment on above: Performed By: #### L [id number] ####[facility] ([facility])[address] [place] [address] POCT GLUCOSE METER UNSOLICIT ED RESULTSon 09-06-2024 Glucose [Mass/Vol] 255 mg/dL High 70-[address] [facility] Comment on above: Order Comment: Waive d Testing in the ED is performed under the ED CLIA certificate #[id number]. Result Comment: [email or web address] Performed By: #### L [id number] ####[facility] ([facility])[address] [place] [address] Glucose [Mass/Vol] 208 mg/dL High 70-[address] [facility] Comment on above: Order Comment: Waive d Testing in the ED is performed under the ED CLIA certificate #[id number]. Result Comment: [email or web address] [email or web address] Performed By: #### L [id number] ####[facility] ([facility])[address] [place] [address] Glucose [Mass/Vol] 173 mg/dL High 70-[address] [facility] Comment on above: Order Comment: Waive d Testing in the ED is performed under the ED CLIA certificate #[id number]. Result Comment: [email or web address] [email or web address] Performed By: #### L [id number] ####[facility] ([facility])[address] [place] [address] Glucose [Mass/Vol] 210 mg/dL High 70-[address] [facility] Comment on above: Order Comment: Waive d Testing in the ED is performed under the ED CLIA certificate #[id number]. Result Comment: [email or web address] [email or web address] Performed By: #### L [id number] ####[facility] ([employer])[address] [place] [address] BASIC METABOLIC PANELon 08-21 Anion gap [Moles/Vol] 8 mmol/L Normal 7-20 [facility] Comment on above: Performed By: #### L [id number] ####[facility] ([facility] [place] [address] Calcium [Mass/Vol] 9.9 mg/dL Normal 8.6-10.[address] [facility] Comment on above: Performed By: #### L [id number] ####[facility] ([facility] [place] [address] Chloride [Moles/Vol] 98 mmol/L Normal 98-107 [facility] Comment on above: Performed By: #### L [id number] ####[facility] ([facility])[address] [place] [address] CO2 [Moles/Vol] 33 mmol/L High 21-31 [facility] Comment on above: Performed By: #### L [id number] ####[facility] ([facility])[address] [place] [address] Creatinine [Mass/Vol] 0.90 mg/dL Normal 0.70-1.30 [facility] Comment on above: Performed By: #### L [id number] ####[facility] ([facility])[address] [place] [address] GLOMERULAR FILTRATION RATE ML/MIN/1.73 SQ M.PREDICTED 94.8 mL/min/1.73m*2 Normal >60.0 [facility] Comment on above: Result Comment: [facility]???s estimated glomerular filtration rate (eGFR) will [...] of individuals. Performed By: #### L [id number] ####[facility] ([facility])[address] [place] [address] Glucose [Mass/Vol] 142 mg/dL High 70-[address] [facility] Comment on above: Performed By: #### L [id number] ####[facility] ([facility])[address] [place] [address] Potassium [Moles/Vol] 4.1 mmol/L Normal 3.5-5.1 [facility] Comment on above: Performed By: #### L [id number] ####[facility] ([facility]ER)[address] [place] [address] Sodium [Moles/Vol] 135 mmol/L Low 136-[address] [facility] Comment on above: Performed By: #### L [id number] ####[facility] ([facility]ER)[address] [place] [address] Urea nitrogen [Mass/Vol] 19 mg/dL Normal 7-25 [facility] Comment on above: Performed By: #### L [id number] ####[facility] ([facility] [place] [address] UREA NITROGEN/CREATININE (MASS RATIO) IN SER/PLAS 21.1 Normal [facility] Comment on above: Performed By: #### L [id number] ####[facility] ([facility] [place] [address] CBC WITH AUTO DIFFERENTIALon 09-05-2024 Basophils (Bld) [#/Vol] 0.07 10*3/uL Normal 0.00-0.20 [facility] Comment on above: Performed By: #### L [id number] ####[facility] ([facility] [place] [address] Basophils/100 WBC (Bld) 0.9 % Normal 0.0-1.0 [facility] Comment on above: Performed By: #### L [id number] ####[facility] ([facility])[address] [place] [address] Eosinophils (Bld) [#/Vol] 0.38 10*3/uL Normal 0.00-0.50 [facility] Comment on above: Performed By: #### L [id number] ####[facility] ([facility])[address] [place] [address] Eosinophils/100 WBC (Bld) 5.0 % Normal 0.0-6.0 [facility] Comment on above: Performed By: #### L [id number] ####[facility] ([facility])[address] [place] [address] Erythrocyte distribution width (RBC) [Ratio] 15.2 % High 11.5-15.0 [facility] Comment on above: Performed By: #### L [id number] ####[facility] ([facility] [place] [address] ERYTHROCYTE MEAN CORPUSCULAR HEMOGLOBIN CONCENTRATION (G/DL) BY AUTOMATED 31.4 g/dL Low 32.0-35.0 [facility] Comment on above: Performed By: #### L [id number] ####[facility] ([facility])[address] [place] [address] Hematocrit (Bld) [Volume fraction] 47.1 % Normal 39.0-55.0 [facility] Comment on above: Performed By: #### L [id number] ####[facility] ([facility])[address] [place] [address] Hemoglobin (Bld) [Mass/Vol] 14.8 g/dL Normal 13.0-17.0 [facility] Comment on above: Performed By: #### L [id number] ####[facility] ([facility])[address] [place] [address] Immature granulocytes (Bld) [#/Vol] 0.06 10*3/uL Normal 0.00-0.20 [facility] Comment on above: Performed By: #### L [id number] ####[facility] ([facility])[address] [place] [address] Immature granulocytes/100 WBC (Bld) 0.8 % Normal 0.0-1.0 [facility] Comment on above: Performed By: #### L [id number] ####[facility] ([facility]ER)[address] [place] [address] Lymphocytes (Bld) [#/Vol] 1.99 10*3/uL Normal 1.20-4.00 [facility] Comment on above: Performed By: #### L [id number] ####[facility] ([facility]ER)[address] [place] [address] Lymphocytes/100 WBC (Bld) 26.0 % Normal 20.0-45.0 [facility] Comment on above: Performed By: #### L [id number] ####[facility] [place] [address] MCH (RBC) [Entitic mass] 28.8 pg Normal 27.0-33.0 [facility] Comment on above: Performed By: #### L [id number] ####[facility] ([facility] [place] [address] MCV (RBC) [Entitic vol] 91.6 fL Normal 82.0-98.0 [facility] Comment on above: Performed By: #### L [id number] ####[facility] ([facility] [place] [address] Monocytes (Bld) [#/Vol] 0.77 10*3/uL Normal 0.10-1.00 [facility] Comment on above: Performed By: #### L [id number] ####[facility] ([facility] [place] [address] Monocytes/100 WBC (Bld) 10.1 % Normal 5.0-12.0 [facility] Comment on above: Performed By: #### L [id number] ####[facility] ([facility])[address] [place] [address] Neutrophils (Bld) [#/Vol] 4.39 10*3/uL Normal 1.60-7.60 [facility] Comment on above: Performed By: #### L [id number] ####[facility] ([facility]ER)[address] [place] [address] Neutrophils/100 WBC (Bld) 57.2 % Normal 40.0-72.0 [facility] Comment on above: Performed By: #### L [id number] ####[facility] (BE[facility]ER)[address] [place] [address] NRBC (PER 100 WBCS) BY AUTOMATED COUNT 0.0 % Normal 0 [facility] Comment on above: Performed By: #### L [id number] ####[facility] ([facility])[address] [place] [address] PLATELETS (10*3/UL) IN BLOOD AUTOMATED COUNT 274 10*3/uL Normal 150-400 [facility] Comment on above: Performed By: #### L [id number] ####[facility] ([facility])[address] [place] [address] RBC (Bld) [#/Vol] 5.14 10*6/uL Normal 4.20-5.70 [facility] Comment on above: Performed By: #### L [id number] ####[facility] ([facility])[address] [place] [address] WBC (Bld) [#/Vol] 7.66 10*3/uL Normal 4.00-10.60 [facility] Comment on above: Performed By: #### L [id number] ####[facility] ([facility])[address] [place] [address] MAGNESIUMon 09-05-2024 Magnesium [Mass/Vol] 1.6 mg/dL Low 1.9-2.7 [facility] Comment on above: Performed By: #### L [id number] ####[facility] ([facility])[address] [place] [address] PHOSPHORUSon 09-05-2024 Magnesium [Mass/Vol] 2.8 mg/dL Normal 2.5-5.0 [facility] Comment on above: Performed By: #### L [id number] ####[facility] ([facility])[address] [place] [address] POCT GLUCOSE METER UNSOLICIT ED RESULTSon 09-05-2024 Glucose [Mass/Vol] 221 mg/dL High 70-[address] [facility] Comment on above: Order Comment: Waive d Testing in the ED is performed under the ED CLIA certificate #[id number]. Result Comment: [email or web address] kol Performed By: #### L [id number] ####[facility] ([facility])[address] [place] [address] Glucose [Mass/Vol] 204 mg/dL High 70-[address] [facility] Comment on above: Order Comment: Waive d Testing in the ED is performed under the ED CLIA certificate #[id number]. Result Comment: [email or web address] [email or web address] Performed By: #### L [id number] ####[facility] ([facility])[address] [place] [address] Glucose [Mass/Vol] 222 mg/dL High 70-[address] [facility] Comment on above: Order Comment: Waive d Testing in the ED is performed under the ED CLIA certificate #[id number]. Result Comment: [email or web address] Performed By: #### L [id number] ####[facility] ([facility])[address] [place] [address] Glucose [Mass/Vol] 141 mg/dL High 70-[address] [facility] Comment on above: Order Comment: Waive d Testing in the ED is performed under the ED CLIA certificate #[id number]. Result Comment: [email or web address] Performed By: #### L [id number] ####[facility] ([facility])[address] [place] [address] 30on 09-04-2024 30 Normal [facility] BASIC METABOLIC PANELon 08-21 Anion gap [Moles/Vol] 7 mmol/L Normal 7-20 [facility] Comment on above: Performed By: #### L [id number] ####[facility] ([facility] [place] [address] Calcium [Mass/Vol] 9.6 mg/dL Normal 8.6-10.[address] [facility] Comment on above: Performed By: #### L [id number] ####[facility] ([facility] [place] [address] Chloride [Moles/Vol] 98 mmol/L Normal 98-107 [facility] Comment on above: Performed By: #### L [id number] ####[facility] ([facility])[address] [place] [address] CO2 [Moles/Vol] 35 mmol/L High 21-31 [facility] Comment on above: Performed By: #### L [id number] ####[facility] ([facility] [place] [address] Creatinine [Mass/Vol] 0.88 mg/dL Normal 0.70-1.30 [facility] Comment on above: Performed By: #### L [id number] ####[facility] ([facility] [place] [address] GLOMERULAR FILTRATION RATE ML/MIN/1.73 SQ M.PREDICTED 95.4 mL/min/1.73m*2 Normal >60.0 [facility] Comment on above: Result Comment: [facility]???s estimated glomerular filtration rate (eGFR) will [...] of individuals. Performed By: #### L [id number] ####[facility] ([facility] [place] [address] Glucose [Mass/Vol] 155 mg/dL High 70-[address] [facility] Comment on above: Performed By: #### L [id number] ####[facility] ([facility])[address] [place] [address] Potassium [Moles/Vol] 4.3 mmol/L Normal 3.5-5.1 [facility] Comment on above: Performed By: #### L [id number] ####[facility] ([facility] [place] [address] Sodium [Moles/Vol] 136 mmol/L Normal 136-[address] [facility] Comment on above: Performed By: #### L [id number] ####[facility] ([facility])[address] [place] [address] Urea nitrogen [Mass/Vol] 22 mg/dL Normal 7-25 [facility] Comment on above: Performed By: #### L [id number] ####[facility] ([facility])[address] [place] [address] UREA NITROGEN/CREATININE (MASS RATIO) IN SER/PLAS 25.0 Normal [facility] Comment on above: Performed By: #### L [id number] ####[facility] ([facility])[address] [place] [address] CBC WITH AUTO DIFFERENTIALon 09-04-2024 Basophils (Bld) [#/Vol] 0.06 10*3/uL Normal 0.00-0.20 [facility] Comment on above: Performed By: #### L [id number] ####[facility] ([facility])[address] [place] [address] Basophils/100 WBC (Bld) 1.0 % Normal 0.0-1.0 [facility] Comment on above: Performed By: #### L [id number] ####[facility] ([facility] [place] [address] Eosinophils (Bld) [#/Vol] 0.38 10*3/uL Normal 0.00-0.50 [facility] Comment on above: Performed By: #### L [id number] ####[facility] ([facility] [place] [address] Eosinophils/100 WBC (Bld) 6.1 % High 0.0-6.0 [facility] Comment on above: Performed By: #### L [id number] ####[facility] ([facility])[address] [place] [address] Erythrocyte distribution width (RBC) [Ratio] 15.2 % High 11.5-15.0 [facility] Comment on above: Performed By: #### L [id number] ####[facility] ([facility])[address] [place] [address] ERYTHROCYTE MEAN CORPUSCULAR HEMOGLOBIN CONCENTRATION (G/DL) BY AUTOMATED 30.6 g/dL Low 32.0-35.0 [facility] Comment on above: Performed By: #### L [id number] ####[facility] ([facility])[address] [place] [address] Hematocrit (Bld) [Volume fraction] 48.4 % Normal 39.0-55.0 [facility] Comment on above: Performed By: #### L [id number] ####[facility] ([facility])[address] [place] [address] Hemoglobin (Bld) [Mass/Vol] 14.8 g/dL Normal 13.0-17.0 [facility] Comment on above: Performed By: #### L [id number] ####[facility] ([facility])[address] [place] [address] Immature granulocytes (Bld) [#/Vol] 0.04 10*3/uL Normal 0.00-0.20 [facility] Comment on above: Performed By: #### L [id number] ####[facility] ([facility])[address] [place] [address] Immature granulocytes/100 WBC (Bld) 0.6 % Normal 0.0-1.0 [facility] Comment on above: Performed By: #### L [id number] ####[facility] ([facility])[address] [place] [address] Lymphocytes (Bld) [#/Vol] 1.68 10*3/uL Normal 1.20-4.00 [facility] Comment on above: Performed By: #### L [id number] ####[facility] ([facility])[address] [place] [address] Lymphocytes/100 WBC (Bld) 27.1 % Normal 20.0-45.0 [facility] Comment on above: Performed By: #### L [id number] ####[facility] ([facility])[address] [place] [address] MCH (RBC) [Entitic mass] 28.6 pg Normal 27.0-33.0 [facility] Comment on above: Performed By: #### L [id number] ####[facility] ([facility] [place] [address] MCV (RBC) [Entitic vol] 93.6 fL Normal 82.0-98.0 [facility] Comment on above: Performed By: #### L [id number] ####[facility] ([facility])[address] [place] [address] Monocytes (Bld) [#/Vol] 0.74 10*3/uL Normal 0.10-1.00 [facility] Comment on above: Performed By: #### L [id number] ####[facility] ([facility])[address] [place] [address] Monocytes/100 WBC (Bld) 11.9 % Normal 5.0-12.0 [facility] Comment on above: Performed By: #### L [id number] ####[facility] ([facility])[address] [place] [address] Neutrophils (Bld) [#/Vol] 3.31 10*3/uL Normal 1.60-7.60 [facility] Comment on above: Performed By: #### L [id number] ####[facility] ([facility])[address] [place] [address] Neutrophils/100 WBC (Bld) 53.3 % Normal 40.0-72.0 [facility] Comment on above: Performed By: #### L [id number] ####[facility] ([facility])[address] [place] [address] NRBC (PER 100 WBCS) BY AUTOMATED COUNT 0.0 % Normal 0 [facility] Comment on above: Performed By: #### L [id number] ####[facility] ([facility])[address] [place] [address] PLATELETS (10*3/UL) IN BLOOD AUTOMATED COUNT 254 10*3/uL Normal 150-400 [facility] Comment on above: Performed By: #### L [id number] ####[facility] ([facility])[address] [place] [address] RBC (Bld) [#/Vol] 5.17 10*6/uL Normal 4.20-5.70 [facility] Comment on above: Performed By: #### L [id number] ####[facility] ([facility])[address] [place] [address] WBC (Bld) [#/Vol] 6.21 10*3/uL Normal 4.00-10.60 [facility] Comment on above: Performed By: #### L [id number] ####[facility] ([facility])[address] [place] [address] POCT GLUCOSE METER UNSOLICIT ED RESULTSon 09-04-2024 Glucose [Mass/Vol] 219 mg/dL High 70-[address] [facility] Comment on above: Order Comment: Waive d Testing in the ED is performed under the ED CLIA certificate #[id number]. Result Comment: [email or web address] Performed By: #### L [id number] ####[facility] ([facility])[address] [place] [address] Glucose [Mass/Vol] 156 mg/dL High 70-[address] [facility] Comment on above: Order Comment: Waive d Testing in the ED is performed under the ED CLIA certificate #[id number]. Result Comment: [email or web address] Performed By: #### L [id number] ####[facility] ([facility])[address] [place] [address] Glucose [Mass/Vol] 190 mg/dL High 70-[address] [facility] Comment on above: Order Comment: Waive d Testing in the ED is performed under the ED CLIA certificate #[id number]. Result Comment: [email or web address] Performed By: #### L [id number] ####[facility] ([facility])[address] [place] [address] Glucose [Mass/Vol] 149 mg/dL High 70-[address] [facility] Comment on above: Order Comment: Waive d Testing in the ED is performed under the ED CLIA certificate #[id number]. Result Comment: [email or web address] Performed By: #### L [id number] ####[facility] ([facility] [place] [address] 30on 09-03-2024 30 Normal [facility] BASIC METABOLIC PANELon 08-21 Anion gap [Moles/Vol] 11 mmol/L Normal 7-20 [facility] Comment on above: Performed By: #### L [id number] ####[facility] ([facility])[address] [place] [address] Calcium [Mass/Vol] 9.7 mg/dL Normal 8.6-10.[address] [facility] Comment on above: Performed By: #### L [id number] ####[facility] ([facility])[address] [place] [address] Chloride [Moles/Vol] 96 mmol/L Low 98-107 [facility] Comment on above: Performed By: #### L [id number] ####[facility] ([facility]ER)[address] [place] [address] CO2 [Moles/Vol] 33 mmol/L High 21-31 [facility] Comment on above: Performed By: #### L [id number] ####[facility] ([facility])[address] [place] [address] Creatinine [Mass/Vol] 0.87 mg/dL Normal 0.70-1.30 [facility] Comment on above: Performed By: #### L [id number] ####[facility] ([facility])[address] [place] [address] GLOMERULAR FILTRATION RATE ML/MIN/1.73 SQ M.PREDICTED 95.8 mL/min/1.73m*2 Normal >60.0 [facility] Comment on above: Result Comment: [facility]???s estimated glomerular filtration rate (eGFR) will [...] of individuals. Performed By: #### L [id number] ####[facility] (AKER)[address] [place] [address] Glucose [Mass/Vol] 161 mg/dL High 70-[address] [facility] Comment on above: Performed By: #### L [id number] ####[facility] ([facility])[address] [place] [address] Potassium [Moles/Vol] 4.2 mmol/L Normal 3.5-5.1 [facility] Comment on above: Performed By: #### L [id number] ####[facility] ([facility])[address] [place] [address] Sodium [Moles/Vol] 136 mmol/L Normal 136-[address] [facility] Comment on above: Performed By: #### L [id number] ####[facility] ([facility]ER)[address] [place] [address] Urea nitrogen [Mass/Vol] 23 mg/dL Normal 7-25 [facility] Comment on above: Performed By: #### L [id number] ####[facility] ([facility])[address] [place] [address] UREA NITROGEN/CREATININE (MASS RATIO) IN SER/PLAS 26.4 Normal [facility] Comment on above: Performed By: #### L [id number] ####[facility] ([facility])[address] [place] [address] CBC WITH AUTO DIFFERENTIALon 09-03-2024 Basophils (Bld) [#/Vol] 0.07 10*3/uL Normal 0.00-0.20 [facility] Comment on above: Performed By: #### L [id number] ####[facility] ([facility])[address] [place] [address] Basophils/100 WBC (Bld) 0.8 % Normal 0.0-1.0 [facility] Comment on above: Performed By: #### L [id number] ####[facility] ([facility]ER)[address] [place] [address] Eosinophils (Bld) [#/Vol] 0.40 10*3/uL Normal 0.00-0.50 [facility] Comment on above: Performed By: #### L [id number] ####[facility] ([facility])[address] [place] [address] Eosinophils/100 WBC (Bld) 4.8 % Normal 0.0-6.0 [facility] Comment on above: Performed By: #### L [id number] ####[facility] ([facility])[address] [place] [address] Erythrocyte distribution width (RBC) [Ratio] 15.3 % High 11.5-15.0 [facility] Comment on above: Performed By: #### L [id number] ####[facility] ([facility])[address] [place] [address] ERYTHROCYTE MEAN CORPUSCULAR HEMOGLOBIN CONCENTRATION (G/DL) BY AUTOMATED 31.8 g/dL Low 32.0-35.0 [facility] Comment on above: Performed By: #### L [id number] ####[facility] ([facility])[address] [place] [address] Hematocrit (Bld) [Volume fraction] 46.8 % Normal 39.0-55.0 [facility] Comment on above: Performed By: #### L [id number] ####[facility] ([facility])[address] [place] [address] Hemoglobin (Bld) [Mass/Vol] 14.9 g/dL Normal 13.0-17.0 [facility] Comment on above: Performed By: #### L [id number] ####[facility] ([facility]ER)[address] [place] [address] Immature granulocytes (Bld) [#/Vol] 0.05 10*3/uL Normal 0.00-0.20 [facility] Comment on above: Performed By: #### L [id number] ####[facility] ([facility] [place] [address] Immature granulocytes/100 WBC (Bld) 0.6 % Normal 0.0-1.0 [facility] Comment on above: Performed By: #### L [id number] ####[facility] ([facility])[address] [place] [address] Lymphocytes (Bld) [#/Vol] 1.73 10*3/uL Normal 1.20-4.00 [facility] Comment on above: Performed By: #### L [id number] ####[facility] ([facility] [place] [address] Lymphocytes/100 WBC (Bld) 20.9 % Normal 20.0-45.0 [facility] Comment on above: Performed By: #### L [id number] ####[facility] ([facility]ER)[address] [place] [address] MCH (RBC) [Entitic mass] 29.3 pg Normal 27.0-33.0 [facility] Comment on above: Performed By: #### L [id number] ####[facility] (BE[facility]ER)[address] [place] [address] MCV (RBC) [Entitic vol] 91.9 fL Normal 82.0-98.0 [facility] Comment on above: Performed By: #### L [id number] ####[facility] ([facility]ER)[address] [place] [address] Monocytes (Bld) [#/Vol] 0.96 10*3/uL Normal 0.10-1.00 [facility] Comment on above: Performed By: #### L [id number] ####[facility] ([facility])[address] [place] [address] Monocytes/100 WBC (Bld) 11.6 % Normal 5.0-12.0 [facility] Comment on above: Performed By: #### L [id number] ####[facility] ([facility])[address] [place] [address] Neutrophils (Bld) [#/Vol] 5.06 10*3/uL Normal 1.60-7.60 [facility] Comment on above: Performed By: #### L [id number] ####[facility] ([facility])[address] [place] [address] Neutrophils/100 WBC (Bld) 61.3 % Normal 40.0-72.0 [facility] Comment on above: Performed By: #### L [id number] ####[facility] ([facility])[address] [address] NRBC (PER 100 WBCS) BY AUTOMATED COUNT 0.0 % Normal 0 [facility] Comment on above: Performed By: #### L [id number] ####[facility] ([facility])[address] [address] PLATELETS (10*3/UL) IN BLOOD AUTOMATED COUNT 264 10*3/uL Normal 150-400 [facility] Comment on above: Performed By: #### L [id number] ####[facility] ([facility])[address] [place] [address] RBC (Bld) [#/Vol] 5.09 10*6/uL Normal 4.20-5.70 [facility] Comment on above: Performed By: #### L [id number] ####[facility] ([facility])[address] [address] WBC (Bld) [#/Vol] 8.27 10*3/uL Normal 4.00-10.60 [facility] Comment on above: Performed By: #### L [id number] ####[facility] ([facility])[address] [place] [address] MAGNESIUMon 09-03-2024 Magnesium [Mass/Vol] 1.6 mg/dL Low 1.9-2.7 [facility] Comment on above: Performed By: #### L [id number] ####[facility] ([facility])[address] [place] [address] PHOSPHORUSon 09-03-2024 Magnesium [Mass/Vol] 3.3 mg/dL Normal 2.5-5.0 [facility] Comment on above: Performed By: #### L [id number] ####[facility] ([facility])[address] [place] [address] POCT GLUCOSE METER UNSOLICIT ED RESULTSon 09-03-2024 Glucose [Mass/Vol] 168 mg/dL High 70-[address] [facility] Comment on above: Order Comment: Waive d Testing in the ED is performed under the ED CLIA certificate #[id number]. Result Comment: [email or web address] pp Performed By: #### L [id number] ####[facility] ([facility])[address] [place] [address] Glucose [Mass/Vol] 184 mg/dL High 70-[address] [facility] Comment on above: Order Comment: Waive d Testing in the ED is performed under the ED CLIA certificate #[id number]. Result Comment: [email or web address] Performed By: #### L [id number] ####[facility] ([facility])[address] [place] [address] Glucose [Mass/Vol] 205 mg/dL High 70-[address] [facility] Comment on above: Order Comment: Waive d Testing in the ED is performed under the ED CLIA certificate #[id number]. Result Comment: [email or web address] [id number] Performed By: #### L [id number] ####[facility] ([facility])[address] [place] [address] Glucose [Mass/Vol] 145 mg/dL High 70-[address] [facility] Comment on above: Order Comment: Waive d Testing in the ED is performed under the ED CLIA certificate #[id number]. Result Comment: [email or web address] [id number] Performed By: #### L [id number] ####[facility] (BEAKER)[address] [place] [address] 30on 09-02-2024 30 Normal [facility] BASIC METABOLIC PANELon 08-21 Anion gap [Moles/Vol] 8 mmol/L Normal 7-20 [facility] Comment on above: Performed By: #### L [id number] ####[facility] (BEAKER)[address] [place] [address] Calcium [Mass/Vol] 9.5 mg/dL Normal 8.6-10.[address] [facility] Comment on above: Performed By: #### L [id number] ####[facility] (BE[facility]ER)[address] [place] [address] Chloride [Moles/Vol] 99 mmol/L Normal 98-107 [facility] Comment on above: Performed By: #### L [id number] ####[facility] (BEAKER)[address] [place] [address] CO2 [Moles/Vol] 37 mmol/L High 21-31 [facility] Comment on above: Performed By: #### L [id number] ####[facility] (BEAKER)[address] [place] [address] Creatinine [Mass/Vol] 0.77 mg/dL Normal 0.70-1.30 [facility] Comment on above: Performed By: #### L [id number] ####[facility] (BE[facility]ER)[address] [place] [address] GLOMERULAR FILTRATION RATE ML/MIN/1.73 SQ M.PREDICTED 99.4 mL/min/1.73m*2 Normal >60.0 [facility] Comment on above: Result Comment: [facility]???s estimated glomerular filtration rate (eGFR) will [...] of individuals. Performed By: #### L [id number] ####[facility] ([facility])[address] [place] [address] Glucose [Mass/Vol] 160 mg/dL High 70-[address] [facility] Comment on above: Performed By: #### L [id number] ####[facility] ([facility])[address] [place] [address] Potassium [Moles/Vol] 4.1 mmol/L Normal 3.5-5.1 [facility] Comment on above: Performed By: #### L [id number] ####[facility] ([facility])[address] [place] [address] Sodium [Moles/Vol] 140 mmol/L Normal 136-[address] [facility] Comment on above: Performed By: #### L [id number] ####[facility] ([facility])[address] [place] [address] Urea nitrogen [Mass/Vol] 16 mg/dL Normal 7-25 [facility] Comment on above: Performed By: #### L [id number] ####[facility] ([facility])[address] [place] [address] UREA NITROGEN/CREATININE (MASS RATIO) IN SER/PLAS 20.8 Normal [facility] Comment on above: Performed By: #### L [id number] ####[facility] ([facility])[address] [place] [address] CBC WITH AUTO DIFFERENTIALon 09-02-2024 Basophils (Bld) [#/Vol] 0.07 10*3/uL Normal 0.00-0.20 [facility] Comment on above: Performed By: #### L [id number] ####[facility] (BEAKER)[address] [place] [address] Basophils/100 WBC (Bld) 1.0 % Normal 0.0-1.0 [facility] Comment on above: Performed By: #### L [id number] ####[facility] (BEAKER)[address] [place] [address] Eosinophils (Bld) [#/Vol] 0.34 10*3/uL Normal 0.00-0.50 [facility] Comment on above: Performed By: #### L [id number] ####[facility] (BE[facility]ER)[address] [place] [address] Eosinophils/100 WBC (Bld) 5.0 % Normal 0.0-6.0 [facility] Comment on above: Performed By: #### L [id number] ####[facility] [place] [address] Erythrocyte distribution width (RBC) [Ratio] 15.1 % High 11.5-15.0 [facility] Comment on above: Performed By: #### L [id number] ####[facility] ([facility]ER)[address] [place] [address] ERYTHROCYTE MEAN CORPUSCULAR HEMOGLOBIN CONCENTRATION (G/DL) BY AUTOMATED 31.0 g/dL Low 32.0-35.0 [facility] Comment on above: Performed By: #### L [id number] ####[facility] ([facility]ER)[address] [place] [address] Hematocrit (Bld) [Volume fraction] 46.2 % Normal 39.0-55.0 [facility] Comment on above: Performed By: #### L [id number] ####[facility] ([facility]ER)[address] [place] [address] Hemoglobin (Bld) [Mass/Vol] 14.3 g/dL Normal 13.0-17.0 [facility] Comment on above: Performed By: #### L [id number] ####[facility] ([facility]ER)[address] [place] [address] Immature granulocytes (Bld) [#/Vol] 0.04 10*3/uL Normal 0.00-0.20 [facility] Comment on above: Performed By: #### L [id number] ####[facility] (BEAKER)[address] [place] [address] Immature granulocytes/100 WBC (Bld) 0.6 % Normal 0.0-1.0 [facility] Comment on above: Performed By: #### L [id number] ####[facility] ([facility])[address] [place] [address] Lymphocytes (Bld) [#/Vol] 1.60 10*3/uL Normal 1.20-4.00 [facility] Comment on above: Performed By: #### L [id number] ####[facility] ([facility])[address] [place] [address] Lymphocytes/100 WBC (Bld) 23.7 % Normal 20.0-45.0 [facility] Comment on above: Performed By: #### L [id number] ####[facility] ([facility])[address] [place] [address] MCH (RBC) [Entitic mass] 28.8 pg Normal 27.0-33.0 [facility] Comment on above: Performed By: #### L [id number] ####[facility] ([facility])[address] [place] [address] MCV (RBC) [Entitic vol] 93.1 fL Normal 82.0-98.0 [facility] Comment on above: Performed By: #### L [id number] ####[facility] [facility] [place] [address] Monocytes (Bld) [#/Vol] 0.86 10*3/uL Normal 0.10-1.00 [facility] Comment on above: Performed By: #### L [id number] ####[facility] ([facility]ER)[address] [place] [address] Monocytes/100 WBC (Bld) 12.8 % High 5.0-12.0 [facility] Comment on above: Performed By: #### L [id number] ####[facility] ([facility])[address] [place] [address] Neutrophils (Bld) [#/Vol] 3.83 10*3/uL Normal 1.60-7.60 [facility] Comment on above: Performed By: #### L [id number] ####[facility] ([facility])[address] [place] [address] Neutrophils/100 WBC (Bld) 56.9 % Normal 40.0-72.0 [facility] Comment on above: Performed By: #### L [id number] ####[facility] ([facility])[address] [place] [address] NRBC (PER 100 WBCS) BY AUTOMATED COUNT 0.0 % Normal 0 [facility] Comment on above: Performed By: #### L [id number] ####[facility] ([facility])[address] [place] [address] PLATELETS (10*3/UL) IN BLOOD AUTOMATED COUNT 264 10*3/uL Normal 150-400 [facility] Comment on above: Performed By: #### L [id number] ####[facility] ([facility])[address] [place] [address] RBC (Bld) [#/Vol] 4.96 10*6/uL Normal 4.20-5.70 [facility] Comment on above: Performed By: #### L [id number] ####[facility] ([facility])[address] [place] [address] WBC (Bld) [#/Vol] 6.74 10*3/uL Normal 4.00-10.60 [facility] Comment on above: Performed By: #### L [id number] ####[facility] ([facility])[address] [place] [address] NURSNOTEon 09-02-2024 NURSNOTE Normal [facility] NURSNOTE Normal [facility] PHOSPHORUSon 09-02-2024 Magnesium [Mass/Vol] 3.1 mg/dL Normal 2.5-5.0 [facility] Comment on above: Performed By: #### L [id number] ####[facility] ([facility] [place] [address] POCT GLUCOSE METER UNSOLICIT ED RESULTSon 09-02-2024 Glucose [Mass/Vol] 289 mg/dL High 70-[address] [facility] Comment on above: Order Comment: Waive d Testing in the ED is performed under the ED CLIA certificate #[id number]. Result Comment: [email or web address] Performed By: #### L [id number] ####[facility] ([facility])[address] [place] [address] Glucose [Mass/Vol] 260 mg/dL High 70-[address] [facility] Comment on above: Order Comment: Waive d Testing in the ED is performed under the ED CLIA certificate #[id number]. Result Comment: [email or web address] Performed By: #### L [id number] ####[facility] ([facility])[address] [place] [address] Glucose [Mass/Vol] 204 mg/dL High 70-[address] [facility] Comment on above: Order Comment: Waive d Testing in the ED is performed under the ED CLIA certificate #[id number]. Result Comment: [email or web address] Performed By: #### L [id number] ####[facility] ([facility])[address] [place] [address] Glucose [Mass/Vol] 166 mg/dL High 70-[address] [facility] Comment on above: Order Comment: Waive d Testing in the ED is performed under the ED CLIA certificate #[id number]. Result Comment: [email or web address] Performed By: #### L [id number] ####[facility] ([facility] [place] [address] 30on 09-01-2024 30 Normal [facility] BASIC METABOLIC PANELon 08-21 Anion gap [Moles/Vol] 7 mmol/L Normal 7-20 [facility] Comment on above: Performed By: #### L [id number] ####[facility] ([facility])[address] [place] [address] Calcium [Mass/Vol] 9.1 mg/dL Normal 8.6-10.[address] [facility] Comment on above: Performed By: #### L [id number] ####[facility] ([facility])[address] [address] Chloride [Moles/Vol] 98 mmol/L Normal 98-107 [facility] Comment on above: Performed By: #### L [id number] ####[facility] ([facility])[address] [place] [address] CO2 [Moles/Vol] 36 mmol/L High 21-31 [facility] Comment on above: Performed By: #### L [id number] ####[facility] ([facility])[address] [address] Creatinine [Mass/Vol] 0.84 mg/dL Normal 0.70-1.30 [facility] Comment on above: Performed By: #### L [id number] ####[facility] ([facility])[address] [place] [address] GLOMERULAR FILTRATION RATE ML/MIN/1.73 SQ M.PREDICTED 96.8 mL/min/1.73m*2 Normal >60.0 [facility] Comment on above: Result Comment: [facility]???s estimated glomerular filtration rate (eGFR) will [...] of individuals. Performed By: #### L [id number] ####[facility] ([facility] [place] [address] Glucose [Mass/Vol] 190 mg/dL High 70-[address] [facility] Comment on above: Performed By: #### L [id number] ####[facility] ([facility])[address] [place] [address] Potassium [Moles/Vol] 4.1 mmol/L Normal 3.5-5.1 [facility] Comment on above: Performed By: #### L [id number] ####[facility] ([facility])[address] [place] [address] Sodium [Moles/Vol] 137 mmol/L Normal 136-[address] [facility] Comment on above: Performed By: #### L [id number] ####[facility] ([facility])[address] [place] [address] Urea nitrogen [Mass/Vol] 18 mg/dL Normal 7-25 [facility] Comment on above: Performed By: #### L [id number] ####[facility] ([facility])[address] [place] [address] UREA NITROGEN/CREATININE (MASS RATIO) IN SER/PLAS 21.4 Normal [facility] Comment on above: Performed By: #### L [id number] ####[facility] ([facility])[address] [place] [address] CBC WITH AUTO DIFFERENTIALon 09-01-2024 Basophils (Bld) [#/Vol] 0.07 10*3/uL Normal 0.00-0.20 [facility] Comment on above: Performed By: #### L [id number] ####[facility] ([facility] [place] [address] Basophils/100 WBC (Bld) 1.0 % Normal 0.0-1.0 [facility] [place] Comment on above: Performed By: #### L [id number] ####[facility] ([facility] [place] [address] Eosinophils (Bld) [#/Vol] 0.37 10*3/uL Normal 0.00-0.50 [facility] Comment on above: Performed By: #### L [id number] ####[facility] (BEAKER)[address] [place] [address] Eosinophils/100 WBC (Bld) 5.1 % Normal 0.0-6.0 [facility] Comment on above: Performed By: #### L [id number] ####[facility] ([facility] [place] [address] Erythrocyte distribution width (RBC) [Ratio] 15.1 % High 11.5-15.0 [facility] Comment on above: Performed By: #### L [id number] ####[facility] ([facility])[address] [place] [address] ERYTHROCYTE MEAN CORPUSCULAR HEMOGLOBIN CONCENTRATION (G/DL) BY AUTOMATED 31.3 g/dL Low 32.0-35.0 [facility] Comment on above: Performed By: #### L [id number] ####[facility] ([facility])[address] [place] [address] Hematocrit (Bld) [Volume fraction] 46.3 % Normal 39.0-55.0 [facility] Comment on above: Performed By: #### L [id number] ####[facility] (BEAKER)[address] [place] [address] Hemoglobin (Bld) [Mass/Vol] 14.5 g/dL Normal 13.0-17.0 [facility] Comment on above: Performed By: #### L [id number] ####[facility] ([facility]ER)[address] [place] [address] Immature granulocytes (Bld) [#/Vol] 0.04 10*3/uL Normal 0.00-0.20 [facility] Comment on above: Performed By: #### L [id number] ####[facility] (BE[facility]ER)[address] [place] [address] Immature granulocytes/100 WBC (Bld) 0.6 % Normal 0.0-1.0 [facility] Comment on above: Performed By: #### L [id number] ####[facility] ([facility])[address] [place] [address] Lymphocytes (Bld) [#/Vol] 1.46 10*3/uL Normal 1.20-4.00 [facility] Comment on above: Performed By: #### L [id number] ####[facility] ([facility])[address] [place] [address] Lymphocytes/100 WBC (Bld) 20.2 % Normal 20.0-45.0 [facility] Comment on above: Performed By: #### L [id number] ####[facility] ([facility])[address] [place] [address] MCH (RBC) [Entitic mass] 29.1 pg Normal 27.0-33.0 [facility] Comment on above: Performed By: #### L [id number] ####[facility] ([facility])[address] [place] [address] MCV (RBC) [Entitic vol] 92.8 fL Normal 82.0-98.0 [facility] [place] Comment on above: Performed By: #### L [id number] ####[facility] ([facility])[address] [place] [address] Monocytes (Bld) [#/Vol] 0.85 10*3/uL Normal 0.10-1.00 [facility] Comment on above: Performed By: #### L [id number] ####[facility] ([facility])[address] [place] [address] Monocytes/100 WBC (Bld) 11.8 % Normal 5.0-12.0 [facility] [place] Comment on above: Performed By: #### L [id number] ####[facility] ([facility])[address] [place] [address] Neutrophils (Bld) [#/Vol] 4.43 10*3/uL Normal 1.60-7.60 [facility] Comment on above: Performed By: #### L [id number] ####[facility] ([facility])[address] [place] [address] Neutrophils/100 WBC (Bld) 61.3 % Normal 40.0-72.0 [facility] Comment on above: Performed By: #### L [id number] ####[facility] ([facility])[address] [place] [address] NRBC (PER 100 WBCS) BY AUTOMATED COUNT 0.0 % Normal 0 [facility] Comment on above: Performed By: #### L [id number] ####[facility] ([facility])[address] [place] [address] PLATELETS (10*3/UL) IN BLOOD AUTOMATED COUNT 268 10*3/uL Normal 150-400 [facility] Comment on above: Performed By: #### L [id number] ####[facility] ([facility])[address] [place] [address] RBC (Bld) [#/Vol] 4.99 10*6/uL Normal 4.20-5.70 [facility] Comment on above: Performed By: #### L [id number] ####[facility] ([facility])[address] [address] WBC (Bld) [#/Vol] 7.22 10*3/uL Normal 4.00-10.60 [facility] Comment on above: Performed By: #### L [id number] ####[facility] ([facility])[address] [place] [address] MAGNESIUMon 09-01-2024 Magnesium [Mass/Vol] 1.8 mg/dL Low 1.9-2.7 [facility] Comment on above: Performed By: #### L [id number] ####[facility] ([facility])[address] [place] [address] POCT GLUCOSE METER UNSOLICIT ED RESULTSon 09-01-2024 Glucose [Mass/Vol] 225 mg/dL High 70-[address] [facility] Comment on above: Order Comment: Waive d Testing in the ED is performed under the ED CLIA certificate #[id number]. Result Comment: [email or web address] Performed By: #### L [id number] ####[facility] ([employer])[address] [place] [address] Glucose [Mass/Vol] 181 mg/dL High 70-[address] [facility] Comment on above: Order Comment: Waive d Testing in the ED is performed under the ED CLIA certificate #[id number]. Result Comment: [email or web address] Performed By: #### L [id number] ####[facility] ([employer])[address] [place] [address] Glucose [Mass/Vol] 209 mg/dL High 70-[address] [facility] Comment on above: Order Comment: Waive d Testing in the ED is performed under the ED CLIA certificate #[id number]. Result Comment: [email or web address] Performed By: #### L [id number] ####[facility] ([employer])[address] [place] [address] Glucose [Mass/Vol] 181 mg/dL High 70-[address] [facility] Comment on above: Order Comment: Waive d Testing in the ED is performed under the ED CLIA certificate #[id number]. Result Comment: [email or web address] Performed By: #### L [id number] ####[facility] ([employer])[address] [place] [address] 30on 08-31-2024 30 Normal [facility] 30 Normal [facility] BASIC METABOLIC PANELon 08-21 Anion gap [Moles/Vol] 8 mmol/L Normal 7-20 [facility] Comment on above: Performed By: #### L [id number] ####[facility] ([employer])[address] [place] [address] Calcium [Mass/Vol] 9.6 mg/dL Normal 8.6-10.[address] [facility] Comment on above: Performed By: #### L [id number] ####[facility] ([facility] [place] [address] Chloride [Moles/Vol] 97 mmol/L Low 98-107 [facility] Comment on above: Performed By: #### L [id number] ####[facility] ([facility])[address] [place] [address] CO2 [Moles/Vol] 35 mmol/L High 21-31 [facility] Comment on above: Performed By: #### L [id number] ####[facility] ([facility])[address] [place] [address] Creatinine [Mass/Vol] 0.85 mg/dL Normal 0.70-1.30 [facility] Comment on above: Performed By: #### L [id number] ####[facility] ([facility])[address] [place] [address] GLOMERULAR FILTRATION RATE ML/MIN/1.73 SQ M.PREDICTED 96.4 mL/min/1.73m*2 Normal >60.0 [facility] Comment on above: Result Comment: [facility]???s estimated glomerular filtration rate (eGFR) will [...] of individuals. Performed By: #### L [id number] ####[facility] ([facility])[address] [place] [address] Glucose [Mass/Vol] 205 mg/dL High 70-[address] [facility] Comment on above: Performed By: #### L [id number] ####[facility] ([facility])[address] [place] [address] Potassium [Moles/Vol] 3.9 mmol/L Normal 3.5-5.1 [facility] Comment on above: Performed By: #### L [id number] ####[facility] (BEAKER)[address] [place] [address] Sodium [Moles/Vol] 136 mmol/L Normal 136-[address] [facility] Comment on above: Performed By: #### L [id number] ####[facility] ([facility]AKER)[address] [place] [address] Urea nitrogen [Mass/Vol] 21 mg/dL Normal 7-25 [facility] Comment on above: Performed By: #### L [id number] ####[facility] ([facility] [place] [address] UREA NITROGEN/CREATININE (MASS RATIO) IN SER/PLAS 24.7 Normal [facility] Comment on above: Performed By: #### L [id number] ####[facility] ([facility] [place] [address] CBC WITH AUTO DIFFERENTIALon 08-31-2024 Basophils (Bld) [#/Vol] 0.06 10*3/uL Normal 0.00-0.20 [facility] Comment on above: Performed By: #### L [id number] ####[facility] ([facility] [place] [address] Basophils/100 WBC (Bld) 0.8 % Normal 0.0-1.0 [facility] Comment on above: Performed By: #### L [id number] ####[facility] ([facility])[address] [place] [address] Eosinophils (Bld) [#/Vol] 0.38 10*3/uL Normal 0.00-0.50 [facility] Comment on above: Performed By: #### L [id number] ####[facility] ([facility]ER)[address] [place] [address] Eosinophils/100 WBC (Bld) 5.3 % Normal 0.0-6.0 [facility] Comment on above: Performed By: #### L [id number] ####[facility] ([facility] [place] [address] Erythrocyte distribution width (RBC) [Ratio] 15.2 % High 11.5-15.0 [facility] Comment on above: Performed By: #### L [id number] ####[facility] ([facility])[address] [address] ERYTHROCYTE MEAN CORPUSCULAR HEMOGLOBIN CONCENTRATION (G/DL) BY AUTOMATED 30.4 g/dL Low 32.0-35.0 [facility] Comment on above: Performed By: #### L [id number] ####[facility] ([facility])[address] [place] [address] Hematocrit (Bld) [Volume fraction] 48.3 % Normal 39.0-55.0 [facility] Comment on above: Performed By: #### L [id number] ####[facility] ([facility])[address] [place] [address] Hemoglobin (Bld) [Mass/Vol] 14.7 g/dL Normal 13.0-17.0 [facility] Comment on above: Performed By: #### L [id number] ####[facility] ([facility])[address] [place] [address] Immature granulocytes (Bld) [#/Vol] 0.06 10*3/uL Normal 0.00-0.20 [facility] Comment on above: Performed By: #### L [id number] ####[facility] ([facility]AKER)[address] [place] [address] Immature granulocytes/100 WBC (Bld) 0.8 % Normal 0.0-1.0 [facility] Comment on above: Performed By: #### L [id number] ####[facility] (BEAKER)[address] [place] [address] Lymphocytes (Bld) [#/Vol] 1.17 10*3/uL Low 1.20-4.00 [facility] Comment on above: Performed By: #### L [id number] ####[facility] (BEAKER)[address] [place] [address] Lymphocytes/100 WBC (Bld) 16.3 % Low 20.0-45.0 [facility] Comment on above: Performed By: #### L [id number] ####[facility] ([facility] [place] [address] MCH (RBC) [Entitic mass] 29.0 pg Normal 27.0-33.0 [facility] Comment on above: Performed By: #### L [id number] ####[facility] ([facility] [place] [address] MCV (RBC) [Entitic vol] 95.3 fL Normal 82.0-98.0 [facility] [place] Comment on above: Performed By: #### L [id number] ####[facility] ([facility] [place] [address] Monocytes (Bld) [#/Vol] 0.82 10*3/uL Normal 0.10-1.00 [facility] Comment on above: Performed By: #### L [id number] ####[facility] ([facility])[address] [place] [address] Monocytes/100 WBC (Bld) 11.4 % Normal 5.0-12.0 [facility] [place] Comment on above: Performed By: #### L [id number] ####[facility] (BEAKER)[address] [place] [address] Neutrophils (Bld) [#/Vol] 4.70 10*3/uL Normal 1.60-7.60 [facility] Comment on above: Performed By: #### L [id number] ####[facility] (BEAKER)[address] [place] [address] Neutrophils/100 WBC (Bld) 65.4 % Normal 40.0-72.0 [facility] Comment on above: Performed By: #### L [id number] ####[facility] ([facility]AKER)[address] [place] [address] NRBC (PER 100 WBCS) BY AUTOMATED COUNT 0.0 % Normal 0 [facility] Comment on above: Performed By: #### L [id number] ####[facility] ([facility])[address] [place] [address] PLATELETS (10*3/UL) IN BLOOD AUTOMATED COUNT 278 10*3/uL Normal 150-400 [facility] Comment on above: Performed By: #### L [id number] ####[facility] ([facility])[address] [place] [address] RBC (Bld) [#/Vol] 5.07 10*6/uL Normal 4.20-5.70 [facility] Comment on above: Performed By: #### L [id number] ####[facility] ([facility])[address] [place] [address] WBC (Bld) [#/Vol] 7.19 10*3/uL Normal 4.00-10.60 [facility] Comment on above: Performed By: #### L [id number] ####[facility] ([facility])[address] [place] [address] MAGNESIUMon 08-31-2024 Magnesium [Mass/Vol] 1.6 mg/dL Low 1.9-2.7 [facility] Comment on above: Performed By: #### L [id number] ####[facility] ([facility])[address] [place] [address] POCT GLUCOSE METER UNSOLICIT ED RESULTSon 08-31-2024 Glucose [Mass/Vol] 281 mg/dL High 70-[address] [facility] Comment on above: Order Comment: Waive d Testing in the ED is performed under the ED CLIA certificate #[id number]. Result Comment: [email or web address] Performed By: #### L [id number] ####[facility] ([facility])[address] [place] [address] Glucose [Mass/Vol] 157 mg/dL High 70-[address] [facility] Comment on above: Order Comment: Waive d Testing in the ED is performed under the ED CLIA certificate #[id number]. Result Comment: [email or web address] Performed By: #### L [id number] ####[facility] ([employer])[address] [place] [address] Glucose [Mass/Vol] 212 mg/dL High 70-[address] [facility] Comment on above: Order Comment: Waive d Testing in the ED is performed under the ED CLIA certificate #[id number]. Result Comment: [email or web address] Performed By: #### L [id number] ####[facility] ([employer])[address] [place] [address] Glucose [Mass/Vol] 167 mg/dL High 70-[address] [facility] Comment on above: Order Comment: Waive d Testing in the ED is performed under the ED CLIA certificate #[id number]. Result Comment: [email or web address] Performed By: #### L [id number] ####[facility] ([employer])[address] [place] [address] 30on 08-30-2024 30 Normal [facility] BASIC METABOLIC PANELon 08-21 Anion gap [Moles/Vol] 10 mmol/L Normal 7-20 [facility] Comment on above: Performed By: #### L [id number] ####[facility] ([employer])[address] [place] [address] Calcium [Mass/Vol] 10.3 mg/dL Normal 8.6-10.[address] [facility] Comment on above: Performed By: #### L [id number] ####[facility] ([facility]AKER)[address] [place] [address] Chloride [Moles/Vol] 94 mmol/L Low 98-107 [facility] Comment on above: Performed By: #### L [id number] ####[facility] ([facility])[address] [place] [address] CO2 [Moles/Vol] 34 mmol/L High 21-31 [facility] Comment on above: Performed By: #### L [id number] ####[facility] ([facility])[address] [place] [address] Creatinine [Mass/Vol] 0.98 mg/dL Normal 0.70-1.30 [facility] Comment on above: Performed By: #### L [id number] ####[facility] ([facility])[address] [place] [address] GLOMERULAR FILTRATION RATE ML/MIN/1.73 SQ M.PREDICTED 85.6 mL/min/1.73m*2 Normal >60.0 [facility] Comment on above: Result Comment: [facility]???s estimated glomerular filtration rate (eGFR) will [...] of individuals. Performed By: #### L [id number] ####[facility] ([facility])[address] [place] [address] Glucose [Mass/Vol] 184 mg/dL High 70-[address] [facility] Comment on above: Performed By: #### L [id number] ####[facility] ([facility])[address] [place] [address] Potassium [Moles/Vol] 4.1 mmol/L Normal 3.5-5.1 [facility] Comment on above: Performed By: #### L [id number] ####[facility] ([facility])[address] [place] [address] Sodium [Moles/Vol] 134 mmol/L Low 136-[address] [facility] Comment on above: Performed By: #### L [id number] ####[facility] ([facility])[address] [place] [address] Urea nitrogen [Mass/Vol] 27 mg/dL High 7-25 [facility] Comment on above: Performed By: #### L [id number] ####[facility] (BEAKER)[address] [place] [address] UREA NITROGEN/CREATININE (MASS RATIO) IN SER/PLAS 27.6 Normal [facility] Comment on above: Performed By: #### L [id number] ####[facility] ([facility] [place] [address] CBC WITH AUTO DIFFERENTIALon 08-30-2024 Basophils (Bld) [#/Vol] 0.09 10*3/uL Normal 0.00-0.20 [facility] Comment on above: Performed By: #### L [id number] ####[facility] ([facility] [place] [address] Basophils/100 WBC (Bld) 1.0 % Normal 0.0-1.0 [facility] Comment on above: Performed By: #### L [id number] ####[facility] ([facility] [place] [address] Eosinophils (Bld) [#/Vol] 0.54 10*3/uL High 0.00-0.50 [facility] Comment on above: Performed By: #### L [id number] ####[facility] (BE[facility]ER)[address] [place] [address] Eosinophils/100 WBC (Bld) 5.9 % Normal 0.0-6.0 [facility] Comment on above: Performed By: #### L [id number] ####[facility] ([facility] [place] [address] Erythrocyte distribution width (RBC) [Ratio] 14.9 % Normal 11.5-15.0 [facility] Comment on above: Performed By: #### L [id number] ####[facility] ([facility])[address] [place] [address] ERYTHROCYTE MEAN CORPUSCULAR HEMOGLOBIN CONCENTRATION (G/DL) BY AUTOMATED 31.0 g/dL Low 32.0-35.0 [facility] Comment on above: Performed By: #### L [id number] ####[facility] ([facility])[address] [place] [address] Hematocrit (Bld) [Volume fraction] 50.9 % Normal 39.0-55.0 [facility] Comment on above: Performed By: #### L [id number] ####[facility] ([facility])[address] [place] [address] Hemoglobin (Bld) [Mass/Vol] 15.8 g/dL Normal 13.0-17.0 [facility] Comment on above: Performed By: #### L [id number] ####[facility] ([facility])[address] [place] [address] Immature granulocytes (Bld) [#/Vol] 0.06 10*3/uL Normal 0.00-0.20 [facility] Comment on above: Performed By: #### L [id number] ####[facility] ([facility])[address] [place] [address] Immature granulocytes/100 WBC (Bld) 0.7 % Normal 0.0-1.0 [facility] Comment on above: Performed By: #### L [id number] ####[facility] ([facility])[address] [place] [address] Lymphocytes (Bld) [#/Vol] 1.65 10*3/uL Normal 1.20-4.00 [facility] Comment on above: Performed By: #### L [id number] ####[facility] ([facility])[address] [place] [address] Lymphocytes/100 WBC (Bld) 17.9 % Low 20.0-45.0 [facility] Comment on above: Performed By: #### L [id number] ####[facility] ([facility])[address] [place] [address] MCH (RBC) [Entitic mass] 29.2 pg Normal 27.0-33.0 [facility] Comment on above: Performed By: #### L [id number] ####[facility] ([facility])[address] [place] [address] MCV (RBC) [Entitic vol] 93.9 fL Normal 82.0-98.0 [facility] Comment on above: Performed By: #### L [id number] ####[facility] ([facility]ER)[address] [place] [address] Monocytes (Bld) [#/Vol] 1.05 10*3/uL High 0.10-1.00 [facility] Comment on above: Performed By: #### L [id number] ####[facility] ([facility])[address] [place] [address] Monocytes/100 WBC (Bld) 11.4 % Normal 5.0-12.0 [facility] Comment on above: Performed By: #### L [id number] ####[facility] ([facility])[address] [place] [address] Neutrophils (Bld) [#/Vol] 5.82 10*3/uL Normal 1.60-7.60 [facility] Comment on above: Performed By: #### L [id number] ####[facility] ([facility])[address] [place] [address] Neutrophils/100 WBC (Bld) 63.1 % Normal 40.0-72.0 [facility] Comment on above: Performed By: #### L [id number] ####[facility] ([facility])[address] [place] [address] NRBC (PER 100 WBCS) BY AUTOMATED COUNT 0.0 % Normal 0 [facility] Comment on above: Performed By: #### L [id number] ####[facility] ([facility])[address] [place] [address] PLATELETS (10*3/UL) IN BLOOD AUTOMATED COUNT 298 10*3/uL Normal 150-400 [facility] Comment on above: Performed By: #### L [id number] ####[facility] ([facility])[address] [place] [address] RBC (Bld) [#/Vol] 5.42 10*6/uL Normal 4.20-5.70 [facility] Comment on above: Performed By: #### L [id number] ####[facility] ([facility])[address] [address] WBC (Bld) [#/Vol] 9.21 10*3/uL Normal 4.00-10.60 [facility] Comment on above: Performed By: #### L [id number] ####[facility] ([facility])[address] [place] [address] CONSULTon 08-30-2024 CONSULT Normal [facility] MAGNESIUMon 08-30-2024 Magnesium [Mass/Vol] 1.7 mg/dL Low 1.9-2.7 [facility] Comment on above: Performed By: #### L [id number] ####[facility] ([facility])[address] [place] [address] NURSNOTEon 08-30-2024 NURSNOTE Normal [facility] POCT GLUCOSE METER UNSOLICIT ED RESULTSon 08-30-2024 Glucose [Mass/Vol] 294 mg/dL High 70-[address] [facility] Comment on above: Order Comment: Waive d Testing in the ED is performed under the ED CLIA certificate #[id number]. Result Comment: [email or web address] [id number] Value Noted Performed By: #### L [id number] ####[facility] ([facility])[address] [place] [address] Glucose [Mass/Vol] 162 mg/dL High 70-[address] [facility] Comment on above: Order Comment: Waive d Testing in the ED is performed under the ED CLIA certificate #[id number]. Result Comment: lacey [email or web address] Performed By: #### L [id number] ####[facility] ([facility])[address] [place] [address] Glucose [Mass/Vol] 193 mg/dL High 70-[address] [facility] Comment on above: Order Comment: Waive d Testing in the ED is performed under the ED CLIA certificate #[id number]. Result Comment: [email or web address] rbo Performed By: #### L [id number] ####[facility] ([facility] [place] [address] Glucose [Mass/Vol] 235 mg/dL High 70-[address] [facility] Comment on above: Order Comment: Waive d Testing in the ED is performed under the ED CLIA certificate #[id number]. Result Comment: [email or web address] Performed By: #### L [id number] ####[facility] ([facility])[address] [place] [address] Glucose [Mass/Vol] 209 mg/dL High 70-[address] [facility] Comment on above: Order Comment: Waive d Testing in the ED is performed under the ED CLIA certificate #[id number]. Result Comment: [email or web address] [email or web address] Performed By: #### L [id number] ####[facility] ([facility])[address] [place] [address] BASIC METABOLIC PANELon 02-0 -2024 Anion gap [Moles/Vol] 7 mmol/L Normal 7-20 [facility] Comment on above: Performed By: #### L [id number] ####[facility] ([facility])[address] [place] [address] Calcium [Mass/Vol] 10.5 mg/dL High 8.6-10.[address] [facility] Comment on above: Performed By: #### L [id number] ####[facility] (BEAKER)[address] [place] [address] Chloride [Moles/Vol] 93 mmol/L Low 98-107 [facility] Comment on above: Performed By: #### L [id number] ####[facility] (BEAKER)[address] [place] [address] CO2 [Moles/Vol] 38 mmol/L High 21-31 [facility] Comment on above: Performed By: #### L [id number] ####[facility] ([facility] [place] [address] Creatinine [Mass/Vol] 0.96 mg/dL Normal 0.70-1.30 [facility] Comment on above: Performed By: #### L [id number] ####[facility] ([facility])[address] [place] [address] GLOMERULAR FILTRATION RATE ML/MIN/1.73 SQ M.PREDICTED 87.7 mL/min/1.73m*2 Normal >60.0 [facility] Comment on above: Result Comment: [facility]???s estimated glomerular filtration rate (eGFR) will [...] of individuals. Performed By: #### L [id number] ####[facility] ([facility])[address] [place] [address] Glucose [Mass/Vol] 182 mg/dL High 70-[address] [facility] Comment on above: Performed By: #### L [id number] ####[facility] ([facility])[address] [place] [address] Potassium [Moles/Vol] 4.1 mmol/L Normal 3.5-5.1 [facility] Comment on above: Performed By: #### L [id number] ####[facility] ([facility] [place] [address] Sodium [Moles/Vol] 134 mmol/L Low 136-[address] [facility] Comment on above: Performed By: #### L [id number] ####[facility] ([facility])[address] [place] [address] Urea nitrogen [Mass/Vol] 23 mg/dL Normal 7-25 [facility] Comment on above: Performed By: #### L [id number] ####[facility] ([facility]ER)[address] [place] [address] UREA NITROGEN/CREATININE (MASS RATIO) IN SER/PLAS 24.0 Normal [facility] Comment on above: Performed By: #### L [id number] ####[facility] ([facility] [place] [address] CBC WITH AUTO DIFFERENTIALon 08-29-2024 Basophils (Bld) [#/Vol] 0.09 10*3/uL Normal 0.00-0.20 [facility] Comment on above: Performed By: #### L [id number] ####[facility] ([facility])[address] [place] [address] Basophils/100 WBC (Bld) 1.0 % Normal 0.0-1.0 [facility] Comment on above: Performed By: #### L [id number] ####[facility] ([facility])[address] [place] [address] Eosinophils (Bld) [#/Vol] 0.48 10*3/uL Normal 0.00-0.50 [facility] Comment on above: Performed By: #### L [id number] ####[facility] ([facility] [place] [address] Eosinophils/100 WBC (Bld) 5.3 % Normal 0.0-6.0 [facility] Comment on above: Performed By: #### L [id number] ####[facility] ([facility] [place] [address] Erythrocyte distribution width (RBC) [Ratio] 15.0 % Normal 11.5-15.0 [facility] Comment on above: Performed By: #### L [id number] ####[facility] ([facility] [place] [address] ERYTHROCYTE MEAN CORPUSCULAR HEMOGLOBIN CONCENTRATION (G/DL) BY AUTOMATED 30.5 g/dL Low 32.0-35.0 [facility] Comment on above: Performed By: #### L [id number] ####[facility] ([facility]ER)[address] [place] [address] Hematocrit (Bld) [Volume fraction] 51.2 % Normal 39.0-55.0 [facility] Comment on above: Performed By: #### L [id number] ####[facility] ([facility]ER)[address] [place] [address] Hemoglobin (Bld) [Mass/Vol] 15.6 g/dL Normal 13.0-17.0 [facility] Comment on above: Performed By: #### L [id number] ####[facility] ([facility]ER)[address] [place] [address] Immature granulocytes (Bld) [#/Vol] 0.07 10*3/uL Normal 0.00-0.20 [facility] Comment on above: Performed By: #### L [id number] ####[facility] ([facility]ER)[address] [place] [address] Immature granulocytes/100 WBC (Bld) 0.8 % Normal 0.0-1.0 [facility] Comment on above: Performed By: #### L [id number] ####[facility] ([facility]ER)[address] [place] [address] Lymphocytes (Bld) [#/Vol] 1.41 10*3/uL Normal 1.20-4.00 [facility] Comment on above: Performed By: #### L [id number] ####[facility] ([facility]ER)[address] [place] [address] Lymphocytes/100 WBC (Bld) 15.7 % Low 20.0-45.0 [facility] Comment on above: Performed By: #### L [id number] ####[facility] ([facility]ER)[address] [place] [address] MCH (RBC) [Entitic mass] 29.0 pg Normal 27.0-33.0 [facility] Comment on above: Performed By: #### L [id number] ####[facility] ([facility]ER)[address] [place] [address] MCV (RBC) [Entitic vol] 95.2 fL Normal 82.0-98.0 [facility] Comment on above: Performed By: #### L [id number] ####[facility] ([facility])[address] [place] [address] Monocytes (Bld) [#/Vol] 0.82 10*3/uL Normal 0.10-1.00 [facility] Comment on above: Performed By: #### L [id number] ####[facility] ([facility])[address] [place] [address] Monocytes/100 WBC (Bld) 9.1 % Normal 5.0-12.0 [facility] Comment on above: Performed By: #### L [id number] ####[facility] ([facility])[address] [place] [address] Neutrophils (Bld) [#/Vol] 6.11 10*3/uL Normal 1.60-7.60 [facility] Comment on above: Performed By: #### L [id number] ####[facility] ([facility])[address] [place] [address] Neutrophils/100 WBC (Bld) 68.1 % Normal 40.0-72.0 [facility] Comment on above: Performed By: #### L [id number] ####[facility] ([facility])[address] [place] [address] NRBC (PER 100 WBCS) BY AUTOMATED COUNT 0.0 % Normal 0 [facility] Comment on above: Performed By: #### L [id number] ####[facility] ([facility])[address] [place] [address] PLATELETS (10*3/UL) IN BLOOD AUTOMATED COUNT 262 10*3/uL Normal 150-400 [facility] Comment on above: Performed By: #### L [id number] ####[facility] ([facility])[address] [place] [address] RBC (Bld) [#/Vol] 5.38 10*6/uL Normal 4.20-5.70 [facility] Comment on above: Performed By: #### L [id number] ####[facility] ([facility])[address] [place] [address] WBC (Bld) [#/Vol] 8.98 10*3/uL Normal 4.00-10.60 [facility] Comment on above: Performed By: #### L [id number] ####[facility] ([facility])[address] [place] [address] MAGNESIUMon 08-29-2024 Magnesium [Mass/Vol] 1.7 mg/dL Low 1.9-2.7 [facility] Comment on above: Performed By: #### L [id number] ####[facility] ([facility])[address] [place] [address] POCT GLUCOSE METER UNSOLICIT ED RESULTSon 08-29-2024 Glucose [Mass/Vol] 284 mg/dL High 70-[address] [facility] Comment on above: Order Comment: Waive d Testing in the ED is performed under the ED CLIA certificate #[id number]. Result Comment: [email or web address] [email or web address] Performed By: #### L [id number] ####[facility] ([facility])[address] [place] [address] Glucose [Mass/Vol] 259 mg/dL High 70-[address] [facility] Comment on above: Order Comment: Waive d Testing in the ED is performed under the ED CLIA certificate #[id number]. Result Comment: aall [email or web address] Performed By: #### L [id number] ####[facility] ([facility])[address] [place] [address] Glucose [Mass/Vol] 301 mg/dL High 70-[address] [facility] Comment on above: Order Comment: Waive d Testing in the ED is performed under the ED CLIA certificate #[id number]. Result Comment: aall [email or web address] Performed By: #### L [id number] ####[facility] ([facility])[address] [place] [address] Glucose [Mass/Vol] 166 mg/dL High 70-[address] [facility] Comment on above: Order Comment: Waive d Testing in the ED is performed under the ED CLIA certificate #[id number]. Result Comment: aall [email or web address] Performed By: #### L [id number] ####[facility] ([facility])[address] [place] [address] BASIC METABOLIC PANELon 02-0 Anion gap [Moles/Vol] 8 mmol/L Normal 7-20 [facility] Comment on above: Performed By: #### L [id number] ####[facility] ([facility])[address] [place] [address] Calcium [Mass/Vol] 9.8 mg/dL Normal 8.6-10.[address] [facility] Comment on above: Performed By: #### L [id number] ####[facility] ([facility])[address] [place] [address] Chloride [Moles/Vol] 96 mmol/L Low 98-107 [facility] Comment on above: Performed By: #### L [id number] ####[facility] ([facility])[address] [place] [address] CO2 [Moles/Vol] 37 mmol/L High 21-31 [facility] Comment on above: Performed By: #### L [id number] ####[facility] ([facility])[address] [place] [address] Creatinine [Mass/Vol] 0.82 mg/dL Normal 0.70-1.30 [facility] Comment on above: Performed By: #### L [id number] ####[facility] ([facility])[address] [place] [address] GLOMERULAR FILTRATION RATE ML/MIN/1.73 SQ M.PREDICTED 97.5 mL/min/1.73m*2 Normal >60.0 [facility] Comment on above: Result Comment: [facility]???s estimated glomerular filtration rate (eGFR) [...] of individuals. Performed By: #### L [id number] ####[facility] ([facility])[address] [place] [address] Glucose [Mass/Vol] 183 mg/dL High 70-[address] [facility] Comment on above: Performed By: #### L [id number] ####[facility] ([facility])[address] [place] [address] Potassium [Moles/Vol] 3.7 mmol/L Normal 3.5-5.1 [facility] Comment on above: Performed By: #### L [id number] ####[facility] ([facility])[address] [place] [address] Sodium [Moles/Vol] 137 mmol/L Normal 136-[address] [facility] Comment on above: Performed By: #### L [id number] ####[facility] ([facility])[address] [place] [address] Urea nitrogen [Mass/Vol] 17 mg/dL Normal 7-25 [facility] Comment on above: Performed By: #### L [id number] ####[facility] ([facility])[address] [place] [address] UREA NITROGEN/CREATININE (MASS RATIO) IN SER/PLAS 20.7 Normal [facility] Comment on above: Performed By: #### L [id number] ####[facility] ([facility])[address] [place] [address] CBC WITH AUTO DIFFERENTIALon 08-28-2024 Basophils (Bld) [#/Vol] 0.09 10*3/uL Normal 0.00-0.20 [facility] Comment on above: Performed By: #### L [id number] ####[facility] ([facility])[address] [place] [address] Basophils/100 WBC (Bld) 0.9 % Normal 0.0-1.0 [facility] Comment on above: Performed By: #### L [id number] ####[facility] (BEAKER)[address] [place] [address] Eosinophils (Bld) [#/Vol] 0.40 10*3/uL Normal 0.00-0.50 [facility] Comment on above: Performed By: #### L [id number] ####[facility] ([facility]ER)[address] [place] [address] Eosinophils/100 WBC (Bld) 4.2 % Normal 0.0-6.0 [facility] Comment on above: Performed By: #### L [id number] ####[facility] (BE[facility]ER)[address] [place] [address] Erythrocyte distribution width (RBC) [Ratio] 14.8 % Normal 11.5-15.0 [facility] Comment on above: Performed By: #### L [id number] ####[facility] (BE[facility]ER)[address] [place] [address] ERYTHROCYTE MEAN CORPUSCULAR HEMOGLOBIN CONCENTRATION (G/DL) BY AUTOMATED 30.3 g/dL Low 32.0-35.0 [facility] Comment on above: Performed By: #### L [id number] ####[facility] (BE[facility]ER)[address] [place] [address] Hematocrit (Bld) [Volume fraction] 50.9 % Normal 39.0-55.0 [facility] Comment on above: Performed By: #### L [id number] ####[facility] (BE[facility]ER)[address] [place] [address] Hemoglobin (Bld) [Mass/Vol] 15.4 g/dL Normal 13.0-17.0 [facility] Comment on above: Performed By: #### L [id number] ####[facility] (BE[facility]ER)[address] [place] [address] Immature granulocytes (Bld) [#/Vol] 0.06 10*3/uL Normal 0.00-0.20 [facility] Comment on above: Performed By: #### L [id number] ####[facility] (BE[facility]ER)[address] [place] [address] Immature granulocytes/100 WBC (Bld) 0.6 % Normal 0.0-1.0 [facility] Comment on above: Performed By: #### L [id number] ####[facility] (BE[facility]ER)[address] [place] [address] Lymphocytes (Bld) [#/Vol] 1.68 10*3/uL Normal 1.20-4.00 [facility] Comment on above: Performed By: #### L [id number] ####[facility] (BE[facility]ER)[address] [place] [address] Lymphocytes/100 WBC (Bld) 17.6 % Low 20.0-45.0 [facility] Comment on above: Performed By: #### L [id number] ####[facility] (BE[facility]ER)[address] [place] [address] MCH (RBC) [Entitic mass] 29.2 pg Normal 27.0-33.0 [facility] Comment on above: Performed By: #### L [id number] ####[facility] ([facility]ER)[address] [place] [address] MCV (RBC) [Entitic vol] 96.6 fL Normal 82.0-98.0 [facility] Comment on above: Performed By: #### L [id number] ####[facility] (BEAKER)[address] [place] [address] Monocytes (Bld) [#/Vol] 0.99 10*3/uL Normal 0.10-1.00 [facility] Comment on above: Performed By: #### L [id number] ####[facility] (BEAKER)[address] [place] [address] Monocytes/100 WBC (Bld) 10.4 % Normal 5.0-12.0 [facility] Comment on above: Performed By: #### L [id number] ####[facility] [place] [address] Neutrophils (Bld) [#/Vol] 6.33 10*3/uL Normal 1.60-7.60 [facility] Comment on above: Performed By: #### L [id number] ####[facility] ([facility])[address] [place] [address] Neutrophils/100 WBC (Bld) 66.3 % Normal 40.0-72.0 [facility] Comment on above: Performed By: #### L [id number] ####[facility] ([facility])[address] [place] [address] NRBC (PER 100 WBCS) BY AUTOMATED COUNT 0.0 % Normal 0 [facility] Comment on above: Performed By: #### L [id number] ####[facility] ([facility])[address] [place] [address] PLATELETS (10*3/UL) IN BLOOD AUTOMATED COUNT 252 10*3/uL Normal 150-400 [facility] Comment on above: Performed By: #### L [id number] ####[facility] ([facility])[address] [place] [address] RBC (Bld) [#/Vol] 5.27 10*6/uL Normal 4.20-5.70 [facility] Comment on above: Performed By: #### L [id number] ####[facility] (BEAKER)[address] [place] [address] WBC (Bld) [#/Vol] 9.55 10*3/uL Normal 4.00-10.60 [facility] Comment on above: Performed By: #### L [id number] ####[facility] (BEAKER)[address] [place] [address] MAGNESIUMon 08-28-2024 Magnesium [Mass/Vol] 1.8 mg/dL Low 1.9-2.7 [facility] Comment on above: Performed By: #### L [id number] ####[facility] ([facility])[address] [place] [address] NURSNOTEon 08-28-2024 NURSNOTE [facility] POCT GLUCOSE METER UNSOLICIT ED RESULTSon 08-28-2024 Glucose [Mass/Vol] 258 mg/dL High 70-[address] [facility] Comment on above: Order Comment: Waive d Testing in the ED is performed under the ED CLIA certificate #[id number]. Result Comment: [email or web address] Performed By: #### L [id number] ####[facility] ([facility])[address] [place] [address] Glucose [Mass/Vol] 177 mg/dL High 70-[address] [facility] Comment on above: Order Comment: Waive d Testing in the ED is performed under the ED CLIA certificate #[id number]. Result Comment: aall [email or web address] Performed By: #### L [id number] ####[facility] ([facility])[address] [place] [address] Glucose [Mass/Vol] 242 mg/dL High 70-[address] [facility] Comment on above: Order Comment: Waive d Testing in the ED is performed under the ED CLIA certificate #[id number]. Result Comment: aall [email or web address] Performed By: #### L [id number] ####[facility] (BEAKER)[address] [place] [address] Glucose [Mass/Vol] 200 mg/dL High 70-[address] [facility] Comment on above: Order Comment: Waive d Testing in the ED is performed under the ED CLIA certificate #[id number]. Result Comment: aall [email or web address] Performed By: #### L [id number] ####[facility] (BEAKER)[address] [place] [address] 30on 08-27-2024 30 Normal [facility] BASIC METABOLIC PANELon 02-0 Anion gap [Moles/Vol] 6 mmol/L Low 7-20 [facility] Comment on above: Performed By: #### L [id number] ####[facility] (BEAKER)[address] [place] [address] Calcium [Mass/Vol] 9.8 mg/dL Normal 8.6-10.[address] [facility] Comment on above: Performed By: #### L [id number] ####[facility] [place] [address] Chloride [Moles/Vol] 97 mmol/L Low 98-107 [facility] Comment on above: Performed By: #### L [id number] ####[facility] (BEAKER)[address] [place] [address] CO2 [Moles/Vol] 41 mmol/L Critically high 21-31 [facility] Comment on above: Performed By: #### L [id number] ####[facility] (BEAKER)[address] [place] [address] Creatinine [Mass/Vol] 0.81 mg/dL Normal 0.70-1.30 [facility] Comment on above: Performed By: #### L [id number] ####[facility] ([facility])[address] [place] [address] GLOMERULAR FILTRATION RATE ML/MIN/1.73 SQ M.PREDICTED 97.8 mL/min/1.73m*2 Normal >60.0 [facility] Comment on above: Result Comment: [facility]???s estimated glomerular filtration rate (eGFR) will [...] of individuals. Performed By: #### L [id number] ####[facility] ([facility])[address] [place] [address] Glucose [Mass/Vol] 187 mg/dL High 70-[address] [facility] Comment on above: Performed By: #### L [id number] ####[facility] ([facility])[address] [place] [address] Potassium [Moles/Vol] 3.5 mmol/L Normal 3.5-5.1 [facility] Comment on above: Performed By: #### L [id number] ####[facility] ([facility])[address] [place] [address] Sodium [Moles/Vol] 140 mmol/L Normal 136-[address] [facility] Comment on above: Performed By: #### L [id number] ####[facility] ([facility])[address] [place] [address] Urea nitrogen [Mass/Vol] 16 mg/dL Normal 7-25 [facility] Comment on above: Performed By: #### L [id number] ####[facility] ([facility])[address] [place] [address] UREA NITROGEN/CREATININE (MASS RATIO) IN SER/PLAS 19.8 Normal [facility] Comment on above: Performed By: #### L [id number] ####[facility] ([facility])[address] [place] [address] CBC WITH AUTO DIFFERENTIALon 08-27-2024 Basophils (Bld) [#/Vol] 0.06 10*3/uL Normal 0.00-0.20 [facility] Comment on above: Performed By: #### L [id number] ####[facility] ([facility])[address] [place] [address] Basophils/100 WBC (Bld) 0.7 % Normal 0.0-1.0 [facility] Comment on above: Performed By: #### L [id number] ####[facility] (BEAKER)[address] [place] [address] Eosinophils (Bld) [#/Vol] 0.38 10*3/uL Normal 0.00-0.50 [facility] Comment on above: Performed By: #### L [id number] ####[facility] (BEAKER)[address] [place] [address] Eosinophils/100 WBC (Bld) 4.7 % Normal 0.0-6.0 [facility] Comment on above: Performed By: #### L [id number] ####[facility] (BEAKER)[address] [place] [address] Erythrocyte distribution width (RBC) [Ratio] 14.6 % Normal 11.5-15.0 [facility] Comment on above: Performed By: #### L [id number] ####[facility] (BEAKER)[address] [place] [address] ERYTHROCYTE MEAN CORPUSCULAR HEMOGLOBIN CONCENTRATION (G/DL) BY AUTOMATED 29.7 g/dL Low 32.0-35.0 [facility] Comment on above: Performed By: #### L [id number] ####[facility] (BEAKER)[address] [place] [address] Hematocrit (Bld) [Volume fraction] 49.5 % Normal 39.0-55.0 [facility] Comment on above: Performed By: #### L [id number] ####[facility] (BEAKER)[address] [place] [address] Hemoglobin (Bld) [Mass/Vol] 14.7 g/dL Normal 13.0-17.0 [facility] Comment on above: Performed By: #### L [id number] ####[facility] (BEAKER)[address] [place] [address] Immature granulocytes (Bld) [#/Vol] 0.04 10*3/uL Normal 0.00-0.20 [facility] Comment on above: Performed By: #### L [id number] ####[facility] (BEAKER)[address] [place] [address] Immature granulocytes/100 WBC (Bld) 0.5 % Normal 0.0-1.0 [facility] Comment on above: Performed By: #### L [id number] ####[facility] ([facility] [place] [address] Lymphocytes (Bld) [#/Vol] 1.42 10*3/uL Normal 1.20-4.00 [facility] Comment on above: Performed By: #### L [id number] ####[facility] ([facility])[address] [place] [address] Lymphocytes/100 WBC (Bld) 17.7 % Low 20.0-45.0 [facility] Comment on above: Performed By: #### L [id number] ####[facility] ([facility] [place] [address] MCH (RBC) [Entitic mass] 28.9 pg Normal 27.0-33.0 [facility] Comment on above: Performed By: #### L [id number] ####[facility] ([facility])[address] [place] [address] MCV (RBC) [Entitic vol] 97.4 fL Normal 82.0-98.0 [facility] Comment on above: Performed By: #### L [id number] ####[facility] ([facility] [place] [address] Monocytes (Bld) [#/Vol] 0.92 10*3/uL Normal 0.10-1.00 [facility] Comment on above: Performed By: #### L [id number] ####[facility] (BEAKER)[address] [place] [address] Monocytes/100 WBC (Bld) 11.5 % Normal 5.0-12.0 [facility] Comment on above: Performed By: #### L [id number] ####[facility] (BEAKER)[address] [place] [address] Neutrophils (Bld) [#/Vol] 5.19 10*3/uL Normal 1.60-7.60 [facility] Comment on above: Performed By: #### L [id number] ####[facility] ([facility])[address] [place] [address] Neutrophils/100 WBC (Bld) 64.9 % Normal 40.0-72.0 [facility] Comment on above: Performed By: #### L [id number] ####[facility] ([facility])[address] [place] [address] NRBC (PER 100 WBCS) BY AUTOMATED COUNT 0.0 % Normal 0 [facility] Comment on above: Performed By: #### L [id number] ####[facility] ([facility])[address] [place] [address] PLATELETS (10*3/UL) IN BLOOD AUTOMATED COUNT 209 10*3/uL Normal 150-400 [facility] Comment on above: Performed By: #### L [id number] ####[facility] ([facility])[address] [place] [address] RBC (Bld) [#/Vol] 5.08 10*6/uL Normal 4.20-5.70 [facility] Comment on above: Performed By: #### L [id number] ####[facility] ([facility])[address] [place], [place] [address] WBC (Bld) [#/Vol] 8.01 10*3/uL Normal 4.00-10.60 [facility] Comment on above: Performed By: #### L [id number] ####[facility] ([facility])[address] [place] [address] MAGNESIUMon 08-27-2024 Magnesium [Mass/Vol] 1.6 mg/dL Low 1.9-2.7 [facility] Comment on above: Performed By: #### L [id number] ####[facility] ([facility] [place] [address] POCT GLUCOSE METER UNSOLICIT ED RESULTSon 08-27-2024 Glucose [Mass/Vol] 144 mg/dL High 70-[address] [facility] Comment on above: Order Comment: Waive d Testing in the ED is performed under the ED CLIA certificate #[id number]. Result Comment: [email or web address] kol Performed By: #### L [id number] ####[facility] ([facility] [place] [address] Glucose [Mass/Vol] 204 mg/dL High 70-[address] [facility] Comment on above: Order Comment: Waive d Testing in the ED is performed under the ED CLIA certificate #[id number]. Result Comment: [email or web address] [email or web address] Performed By: #### L [id number] ####[facility] ([facility])[address] [place] [address] Glucose [Mass/Vol] 230 mg/dL High 70-[address] [facility] Comment on above: Order Comment: Waive d Testing in the ED is performed under the ED CLIA certificate #[id number]. Result Comment: [email or web address] Performed By: #### L [id number] ####[facility] ([facility])[address] [place] [address] Glucose [Mass/Vol] 174 mg/dL High 70-[address] [facility] Comment on above: Order Comment: Waive d Testing in the ED is performed under the ED CLIA certificate #[id number]. Result Comment: [email or web address] [email or web address] Performed By: #### L [id number] ####[facility] ([facility])[address] [place] [address] BASIC METABOLIC PANELon 02-0 Anion gap [Moles/Vol] 9 mmol/L Normal 7-20 [facility] Comment on above: Performed By: #### L [id number] ####[facility] ([facility])[address] [place] [address] Calcium [Mass/Vol] 9.4 mg/dL Normal 8.6-10.[address] [facility] Comment on above: Performed By: #### L [id number] ####[facility] ([facility])[address] [place] [address] Chloride [Moles/Vol] 100 mmol/L Normal 98-107 [facility] Comment on above: Performed By: #### L [id number] ####[facility] ([facility])[address] [place] [address] CO2 [Moles/Vol] 36 mmol/L High 21-31 [facility] Comment on above: Performed By: #### L [id number] ####[facility] ([facility])[address] [place] [address] Creatinine [Mass/Vol] 0.78 mg/dL Normal 0.70-1.30 [facility] Comment on above: Performed By: #### L [id number] ####[facility] ([facility])[address] [place] [address] GLOMERULAR FILTRATION RATE ML/MIN/1.73 SQ M.PREDICTED 99.0 mL/min/1.73m*2 Normal >60.0 [facility] Comment on above: Result Comment: [facility]???s estimated glomerular filtration rate (eGFR) will [...] of individuals. Performed By: #### L [id number] ####[facility] ([facility] [place] [address] Glucose [Mass/Vol] 156 mg/dL High 70-[address] [facility] Comment on above: Performed By: #### L [id number] ####[facility] ([facility] [place] [address] Potassium [Moles/Vol] 3.5 mmol/L Normal 3.5-5.1 [facility] Comment on above: Performed By: #### L [id number] ####[facility] (BEAKER)[address] [place] [address] Sodium [Moles/Vol] 141 mmol/L Normal 136-[address] [facility] Comment on above: Performed By: #### L [id number] ####[facility] (BEAKER)[address] [place] [address] Urea nitrogen [Mass/Vol] 17 mg/dL Normal 7-25 [facility] Comment on above: Performed By: #### L [id number] ####[facility] ([facility] [place] [address] UREA NITROGEN/CREATININE (MASS RATIO) IN SER/PLAS 21.8 Normal [facility] Comment on above: Performed By: #### L [id number] ####[facility] ([facility] [place] [address] CBC WITH AUTO DIFFERENTIALon 08-26-2024 Basophils (Bld) [#/Vol] 0.06 10*3/uL Normal 0.00-0.20 [facility] Comment on above: Performed By: #### L [id number] ####[facility] (BEAKER)[address] [place] [address] Basophils/100 WBC (Bld) 0.8 % Normal 0.0-1.0 [facility] Comment on above: Performed By: #### L [id number] ####[facility] (BEAKER)[address] [place] [address] Eosinophils (Bld) [#/Vol] 0.39 10*3/uL Normal 0.00-0.50 [facility] Comment on above: Performed By: #### L [id number] ####[facility] (BEAKER)[address] [place] [address] Eosinophils/100 WBC (Bld) 5.4 % Normal 0.0-6.0 [facility] Comment on above: Performed By: #### L [id number] ####[facility] (BEAKER)[address] [place] [address] Erythrocyte distribution width (RBC) [Ratio] 14.7 % Normal 11.5-15.0 [facility] Comment on above: Performed By: #### L [id number] ####[facility] (BEAKER)[address] [place] [address] ERYTHROCYTE MEAN CORPUSCULAR HEMOGLOBIN CONCENTRATION (G/DL) BY AUTOMATED 30.4 g/dL Low 32.0-35.0 [facility] Comment on above: Performed By: #### L [id number] ####[facility] (BEAKER)[address] [place] [address] Hematocrit (Bld) [Volume fraction] 49.0 % Normal 39.0-55.0 [facility] Comment on above: Performed By: #### L [id number] ####[facility] (BEAKER)[address] [place] [address] Hemoglobin (Bld) [Mass/Vol] 14.9 g/dL Normal 13.0-17.0 [facility] Comment on above: Performed By: #### L [id number] ####[facility] (BEAKER)[address] [place] [address] Immature granulocytes (Bld) [#/Vol] 0.03 10*3/uL Normal 0.00-0.20 [facility] Comment on above: Performed By: #### L [id number] ####[facility] (BEAKER)[address] [place], [place] [address] Immature granulocytes/100 WBC (Bld) 0.4 % Normal 0.0-1.0 [facility] Comment on above: Performed By: #### L [id number] ####[facility] (BEAKER)[address] [place], [place] [address] Lymphocytes (Bld) [#/Vol] 1.21 10*3/uL Normal 1.20-4.00 [facility] Comment on above: Performed By: #### L [id number] ####[facility] (BEAKER)[address] [place] [address] Lymphocytes/100 WBC (Bld) 16.7 % Low 20.0-45.0 [facility] Comment on above: Performed By: #### L [id number] ####[facility] ([facility])[address] [place] [address] MCH (RBC) [Entitic mass] 29.2 pg Normal 27.0-33.0 [facility] Comment on above: Performed By: #### L [id number] ####[facility] ([facility])[address] [place] [address] MCV (RBC) [Entitic vol] 96.1 fL Normal 82.0-98.0 [facility] Comment on above: Performed By: #### L [id number] ####[facility] ([facility])[address] [place] [address] Monocytes (Bld) [#/Vol] 0.86 10*3/uL Normal 0.10-1.00 [facility] Comment on above: Performed By: #### L [id number] ####[facility] ([facility])[address] [place] [address] Monocytes/100 WBC (Bld) 11.9 % Normal 5.0-12.0 [facility] Comment on above: Performed By: #### L [id number] ####[facility] [place] [address] Neutrophils (Bld) [#/Vol] 4.70 10*3/uL Normal 1.60-7.60 [facility] Comment on above: Performed By: #### L [id number] ####[facility] ([facility] [place] [address] Neutrophils/100 WBC (Bld) 64.8 % Normal 40.0-72.0 [facility] Comment on above: Performed By: #### L [id number] ####[facility] ([facility] [place] [address] NRBC (PER 100 WBCS) BY AUTOMATED COUNT 0.0 % Normal 0 [facility] Comment on above: Performed By: #### L [id number] ####[facility] ([facility])[address] [place] [address] PLATELETS (10*3/UL) IN BLOOD AUTOMATED COUNT 208 10*3/uL Normal 150-400 [facility] Comment on above: Performed By: #### L [id number] ####[facility] ([facility])[address] [place] [address] RBC (Bld) [#/Vol] 5.10 10*6/uL Normal 4.20-5.70 [facility] Comment on above: Performed By: #### L [id number] ####[facility] ([facility])[address] [place] [address] WBC (Bld) [#/Vol] 7.25 10*3/uL Normal 4.00-10.60 [facility] Comment on above: Performed By: #### L [id number] ####[facility] ([facility])[address] [place] [address] MAGNESIUMon 08-26-2024 Magnesium [Mass/Vol] 1.8 mg/dL Low 1.9-2.7 [facility] Comment on above: Performed By: #### L [id number] ####[facility] ([facility])[address] [place] [address] POCT GLUCOSE METER UNSOLICIT ED RESULTSon 08-26-2024 Glucose [Mass/Vol] 246 mg/dL High 70-[address] [facility] Comment on above: Order Comment: Waive d Testing in the ED is performed under the ED CLIA certificate #[id number]. Result Comment: [email or web address] Performed By: #### L [id number] ####[facility] ([facility])[address] [place] [address] Glucose [Mass/Vol] 204 mg/dL High 70-[address] [facility] Comment on above: Order Comment: Waive d Testing in the ED is performed under the ED CLIA certificate #[id number]. Result Comment: [email or web address] Performed By: #### L [id number] ####[facility] (BEAKER)[address] [place] [address] Glucose [Mass/Vol] 219 mg/dL High 70-[address] [facility] Comment on above: Order Comment: Waive d Testing in the ED is performed under the ED CLIA certificate #[id number]. Result Comment: [email or web address] [email or web address] Performed By: #### L [id number] ####[facility] (BEAKER)[address] [place] [address] Glucose [Mass/Vol] 163 mg/dL High 70-[address] [facility] Comment on above: Order Comment: Waive d Testing in the ED is performed under the ED CLIA certificate #[id number]. Result Comment: [email or web address] [email or web address] Performed By: #### L [id number] ####[facility] (BEAKER)[address] [place] [address] 30on 08-25-2024 30 Normal [facility] BASIC METABOLIC PANELon Anion gap [Moles/Vol] 10 mmol/L Normal 7-20 [facility] Comment on above: Performed By: #### L [id number] ####[facility] (BEAKER)[address] [place] [address] Calcium [Mass/Vol] 9.5 mg/dL Normal 8.6-10.[address] [facility] Comment on above: Performed By: #### L [id number] ####[facility] ([facility]ER)[address] [place] [address] Chloride [Moles/Vol] 97 mmol/L Low 98-107 [facility] Comment on above: Performed By: #### L [id number] ####[facility] (BE[facility]ER)[address] [place] [address] CO2 [Moles/Vol] 34 mmol/L High 21-31 [facility] Comment on above: Performed By: #### L [id number] ####[facility] ([facility]ER)[address] [place] [address] Creatinine [Mass/Vol] 0.87 mg/dL Normal 0.70-1.30 [facility] Comment on above: Performed By: #### L [id number] ####[facility] ([facility])[address] [place] [address] GLOMERULAR FILTRATION RATE ML/MIN/1.73 SQ M.PREDICTED 95.8 mL/min/1.73m*2 Normal >60.0 [facility] Comment on above: Result Comment: [facility]???s estimated glomerular filtration rate (eGFR) will [...] of individuals. Performed By: #### L [id number] ####[facility] ([facility])[address] [place] [address] Glucose [Mass/Vol] 178 mg/dL High 70-[address] [facility] Comment on above: Performed By: #### L [id number] ####[facility] ([facility])[address] [place] [address] Potassium [Moles/Vol] 3.5 mmol/L Normal 3.5-5.1 [facility] Comment on above: Performed By: #### L [id number] ####[facility] ([facility])[address] [place] [address] Sodium [Moles/Vol] 137 mmol/L Normal 136-[address] [facility] Comment on above: Performed By: #### L [id number] ####[facility] ([facility])[address] [place] [address] Urea nitrogen [Mass/Vol] 20 mg/dL Normal 7-25 [facility] Comment on above: Performed By: #### L [id number] ####[facility] (BEAKER)[address] [place] [address] UREA NITROGEN/CREATININE (MASS RATIO) IN SER/PLAS 23.0 Normal [facility] Comment on above: Performed By: #### L [id number] ####[facility] [place] [address] CBC WITH AUTO DIFFERENTIALon 08-25-2024 Basophils (Bld) [#/Vol] 0.04 10*3/uL Normal 0.00-0.20 [facility] Comment on above: Performed By: #### L [id number] ####[facility] ([facility])[address] [place] [address] Basophils/100 WBC (Bld) 0.6 % Normal 0.0-1.0 [facility] Comment on above: Performed By: #### L [id number] ####[facility] [place] [address] Eosinophils (Bld) [#/Vol] 0.22 10*3/uL Normal 0.00-0.50 [facility] Comment on above: Performed By: #### L [id number] ####[facility] ([facility] [place] [address] Eosinophils/100 WBC (Bld) 3.1 % Normal 0.0-6.0 [facility] Comment on above: Performed By: #### L [id number] ####[facility] [place] [address] Erythrocyte distribution width (RBC) [Ratio] 14.6 % Normal 11.5-15.0 [facility] Comment on above: Performed By: #### L [id number] ####[facility] ([facility] [place] [address] ERYTHROCYTE MEAN CORPUSCULAR HEMOGLOBIN CONCENTRATION (G/DL) BY AUTOMATED 30.6 g/dL Low 32.0-35.0 [facility] Comment on above: Performed By: #### L [id number] ####[facility] (BEAKER)[address] [place] [address] Hematocrit (Bld) [Volume fraction] 49.4 % Normal 39.0-55.0 [facility] Comment on above: Performed By: #### L [id number] ####[facility] (BEAKER)[address] [place] [address] Hemoglobin (Bld) [Mass/Vol] 15.1 g/dL Normal 13.0-17.0 [facility] Comment on above: Performed By: #### L [id number] ####[facility] (BEAKER)[address] [place] [address] Immature granulocytes (Bld) [#/Vol] 0.04 10*3/uL Normal 0.00-0.20 [facility] Comment on above: Performed By: #### L [id number] ####[facility] (BEAKER)[address] [place] [address] Immature granulocytes/100 WBC (Bld) 0.6 % Normal 0.0-1.0 [facility] Comment on above: Performed By: #### L [id number] ####[facility] (BEAKER)[address] [place] [address] Lymphocytes (Bld) [#/Vol] 1.08 10*3/uL Low 1.20-4.00 [facility] Comment on above: Performed By: #### L [id number] ####[facility] (BEAKER)[address] [place] [address] Lymphocytes/100 WBC (Bld) 15.1 % Low 20.0-45.0 [facility] Comment on above: Performed By: #### L [id number] ####[facility] (BEAKER)[address] [place] [address] MCH (RBC) [Entitic mass] 28.9 pg Normal 27.0-33.0 [facility] Comment on above: Performed By: #### L [id number] ####[facility] (BEAKER)[address] [place] [address] MCV (RBC) [Entitic vol] 94.6 fL Normal 82.0-98.0 [facility] Comment on above: Performed By: #### L [id number] ####[facility] (BEAKER)[address] [place] [address] Monocytes (Bld) [#/Vol] 0.94 10*3/uL Normal 0.10-1.00 [facility] Comment on above: Performed By: #### L [id number] ####[facility] (BEAKER)[address] [place], [place] [address] Monocytes/100 WBC (Bld) 13.1 % High 5.0-12.0 [facility] Comment on above: Performed By: #### L [id number] ####[facility] (BEAKER)[address] [place] [address] Neutrophils (Bld) [#/Vol] 4.85 10*3/uL Normal 1.60-7.60 [facility] Comment on above: Performed By: #### L [id number] ####[facility] (BEAKER)[address] [place], [place] [address] Neutrophils/100 WBC (Bld) 67.5 % Normal 40.0-72.0 [facility] Comment on above: Performed By: #### L [id number] ####[facility] (BEAKER)[address] [place] [address] NRBC (PER 100 WBCS) BY AUTOMATED COUNT 0.0 % Normal 0 [facility] Comment on above: Performed By: #### L [id number] ####[facility] (BEAKER)[address] [place] [address] PLATELETS (10*3/UL) IN BLOOD AUTOMATED COUNT 200 10*3/uL Normal 150-400 [facility] Comment on above: Performed By: #### L [id number] ####[facility] (BEAKER)[address] [place] [address] RBC (Bld) [#/Vol] 5.22 10*6/uL Normal 4.20-5.70 [facility] Comment on above: Performed By: #### L [id number] ####[facility] ([facility])[address] [place] [address] WBC (Bld) [#/Vol] 7.17 10*3/uL Normal 4.00-10.60 [facility] Comment on above: Performed By: #### L [id number] ####[facility] ([facility])[address] [place] [address] MAGNESIUMon 08-25-2024 Magnesium [Mass/Vol] 1.6 mg/dL Low 1.9-2.7 [facility] Comment on above: Performed By: #### L [id number] ####[facility] ([facility])[address] [place] [address] POCT GLUCOSE METER UNSOLICIT ED RESULTSon 08-25-2024 Glucose [Mass/Vol] 154 mg/dL High 70-[address] [facility] Comment on above: Order Comment: Waive d Testing in the ED is performed under the ED CLIA certificate #[id number]. Result Comment: [email or web address] Performed By: #### L [id number] ####[facility] ([facility])[address] [place] [address] Glucose [Mass/Vol] 196 mg/dL High 70-[address] [facility] Comment on above: Order Comment: Waive d Testing in the ED is performed under the ED CLIA certificate #[id number]. Result Comment: [email or web address] [email or web address] Performed By: #### L [id number] ####[facility] ([facility])[address] [place] [address] Glucose [Mass/Vol] 313 mg/dL High 70-[address] [facility] Comment on above: Order Comment: Waive d Testing in the ED is performed under the ED CLIA certificate #[id number]. Result Comment: [email or web address] [email or web address] Performed By: #### L [id number] ####[facility] ([facility])[address] [place] [address] Glucose [Mass/Vol] 164 mg/dL High 70-[address] [facility] Comment on above: Order Comment: Waive d Testing in the ED is performed under the ED CLIA certificate #[id number]. Result Comment: [email or web address] [email or web address] Performed By: #### L [id number] ####[facility] ([facility])[address] [address] 30on 08-24-2024 30 Normal [facility] ANTI-XA (HEPARIN LEVEL)on HEPARIN UNFRACTIONATED (U/ML) IN PPP BY CHROMOGENIC METHOD 0.21 IU/mL Low 0.3-0.7 [facility] Comment on above: Result Comment: Tatyana roxaban and Apixaban will interfere with the anti Xa assay used to monitor UFH and LMWH. Performed By: #### L [id number] ####[facility] ([facility])[address] [place] [address] B-TYPE NATRIURETIC PEPTIDEon 08-24-2024 Natriuretic peptide B (Bld) [Mass/Vol] 143 pg/mL High 0-100 [facility] Comment on above: Performed By: #### L [id number] ####[facility] ([facility])[address] [place] [address] BASIC METABOLIC PANELon Anion gap [Moles/Vol] 11 mmol/L Normal 7-20 [facility] Comment on above: Performed By: #### L [id number] ####[facility] ([facility])[address] [place] [address] Calcium [Mass/Vol] 9.7 mg/dL Normal 8.6-10.[address] [facility] Comment on above: Performed By: #### L [id number] ####[facility] ([facility])[address] [place] [address] Chloride [Moles/Vol] 98 mmol/L Normal 98-107 [facility] Comment on above: Performed By: #### L [id number] ####[facility] ([facility] [place] [address] CO2 [Moles/Vol] 33 mmol/L High 21-31 [facility] Comment on above: Performed By: #### L [id number] ####[facility] ([facility])[address] [place] [address] Creatinine [Mass/Vol] 0.93 mg/dL Normal 0.70-1.30 [facility] Comment on above: Performed By: #### L [id number] ####[facility] ([facility])[address] [place] [address] GLOMERULAR FILTRATION RATE ML/MIN/1.73 SQ M.PREDICTED 91.1 mL/min/1.73m*2 Normal >60.0 [facility] Comment on above: Result Comment: [facility]???s estimated glomerular filtration rate (eGFR) will [...] of individuals. Performed By: #### L [id number] ####[facility] ([facility])[address] [place] [address] Glucose [Mass/Vol] 166 mg/dL High 70-[address] [facility] Comment on above: Performed By: #### L [id number] ####[facility] ([facility] [place] [address] Potassium [Moles/Vol] 3.8 mmol/L Normal 3.5-5.1 [facility] Comment on above: Performed By: #### L [id number] ####[facility] ([facility] [place] [address] Sodium [Moles/Vol] 138 mmol/L Normal 136-[address] [facility] Comment on above: Performed By: #### L [id number] ####[facility] (BEAKER)[address] [place] [address] Urea nitrogen [Mass/Vol] 23 mg/dL Normal 7-25 [facility] Comment on above: Performed By: #### L [id number] ####[facility] ([facility]AKER)[address] [place] [address] UREA NITROGEN/CREATININE (MASS RATIO) IN SER/PLAS 24.7 Normal [facility] Comment on above: Performed By: #### L [id number] ####[facility] (BEAKER)[address] [place] [address] Anion gap [Moles/Vol] 10 mmol/L Normal 7-20 [facility] Comment on above: Performed By: #### L [id number] ####[facility] (BEAKER)[address] [place] [address] Calcium [Mass/Vol] 9.4 mg/dL Normal 8.6-10.[address] [facility] Comment on above: Performed By: #### L [id number] ####[facility] (BEAKER)[address] [place] [address] Chloride [Moles/Vol] 98 mmol/L Normal 98-107 [facility] Comment on above: Performed By: #### L [id number] ####[facility] (BE[facility]ER)[address] [place] [address] CO2 [Moles/Vol] 33 mmol/L High 21-31 [facility] Comment on above: Performed By: #### L [id number] ####[facility] (BEAKER)[address] [place] [address] Creatinine [Mass/Vol] 0.88 mg/dL Normal 0.70-1.30 [facility] Comment on above: Performed By: #### L [id number] ####[facility] (BEAKER)[address] [place] [address] GLOMERULAR FILTRATION RATE ML/MIN/1.73 SQ M.PREDICTED 95.4 mL/min/1.73m*2 Normal >60.0 [facility] Comment on above: Result Comment: [facility]???s estimated glomerular filtration rate (eGFR) will [...] of individuals. Performed By: #### L [id number] ####[facility] ([facility])[address] [facility] [place] [address] Glucose [Mass/Vol] 132 mg/dL High 70-[address] [facility] Comment on above: Performed By: #### L [id number] ####[facility] ([facility])[address] [place] [address] Potassium [Moles/Vol] 2.9 mmol/L Invalid Interpretation Code 3.5-5.1 [facility] Comment on above: Performed By: #### L [id number] ####[facility] ([facility])[address] [place] [address] Sodium [Moles/Vol] 138 mmol/L Normal 136-[address] [facility] Comment on above: Performed By: #### L [id number] ####[facility] ([facility])[address] [facility] [place] [address] Urea nitrogen [Mass/Vol] 24 mg/dL Normal 7-25 [facility] Comment on above: Performed By: #### L [id number] ####[facility] ([facility])[address] [place] [address] UREA NITROGEN/CREATININE (MASS RATIO) IN SER/PLAS 27.3 Normal [facility] Comment on above: Performed By: #### L [id number] ####[facility] ([facility])[address] [place] [address] CBC WITH AUTO DIFFERENTIALon 08-24-2024 Basophils (Bld) [#/Vol] 0.06 10*3/uL Normal 0.00-0.20 [facility] Comment on above: Performed By: #### L [id number] ####[facility] (BEAKER)[address] [place] [address] Basophils/100 WBC (Bld) 0.8 % Normal 0.0-1.0 [facility] Comment on above: Performed By: #### L [id number] ####[facility] (BEAKER)[address] [place] [address] Eosinophils (Bld) [#/Vol] 0.46 10*3/uL Normal 0.00-0.50 [facility] Comment on above: Performed By: #### L [id number] ####[facility] (BEAKER)[address] [place] [address] Eosinophils/100 WBC (Bld) 5.9 % Normal 0.0-6.0 [facility] Comment on above: Performed By: #### L [id number] ####[facility] (BEAKER)[address] [place] [address] Erythrocyte distribution width (RBC) [Ratio] 14.7 % Normal 11.5-15.0 [facility] Comment on above: Performed By: #### L [id number] ####[facility] (BEAKER)[address] [place] [address] ERYTHROCYTE MEAN CORPUSCULAR HEMOGLOBIN CONCENTRATION (G/DL) BY AUTOMATED 31.3 g/dL Low 32.0-35.0 [facility] Comment on above: Performed By: #### L [id number] ####[facility] (BEAKER)[address] [place] [address] Hematocrit (Bld) [Volume fraction] 50.8 % Normal 39.0-55.0 [facility] Comment on above: Performed By: #### L [id number] ####[facility] (BEAKER)[address] [place] [address] Hemoglobin (Bld) [Mass/Vol] 15.9 g/dL Normal 13.0-17.0 [facility] Comment on above: Performed By: #### L [id number] ####[facility] (BEAKER)[address] [place] [address] Immature granulocytes (Bld) [#/Vol] 0.04 10*3/uL Normal 0.00-0.20 [facility] Comment on above: Performed By: #### L [id number] ####[facility] (BEAKER)[address] [place] [address] Immature granulocytes/100 WBC (Bld) 0.5 % Normal 0.0-1.0 [facility] Comment on above: Performed By: #### L [id number] ####[facility] (BEAKER)[address] [place] [address] Lymphocytes (Bld) [#/Vol] 1.23 10*3/uL Normal 1.20-4.00 [facility] Comment on above: Performed By: #### L [id number] ####[facility] (BEAKER)[address] [place] [address] Lymphocytes/100 WBC (Bld) 15.8 % Low 20.0-45.0 [facility] Comment on above: Performed By: #### L [id number] ####[facility] (BEAKER)[address] [place] [address] MCH (RBC) [Entitic mass] 29.1 pg Normal 27.0-33.0 [facility] Comment on above: Performed By: #### L [id number] ####[facility] (BEAKER)[address] [place] [address] MCV (RBC) [Entitic vol] 92.9 fL Normal 82.0-98.0 [facility] Comment on above: Performed By: #### L [id number] ####[facility] (BEAKER)[address] [place] [address] Monocytes (Bld) [#/Vol] 0.96 10*3/uL Normal 0.10-1.00 [facility] Comment on above: Performed By: #### L [id number] ####[facility] ([facility] [place] [address] Monocytes/100 WBC (Bld) 12.4 % High 5.0-12.0 [facility] [place] Comment on above: Performed By: #### L [id number] ####[facility] ([facility])[address] [place] [address] Neutrophils (Bld) [#/Vol] 5.02 10*3/uL Normal 1.60-7.60 [facility] Comment on above: Performed By: #### L [id number] ####[facility] ([facility])[address] [place] [address] Neutrophils/100 WBC (Bld) 64.6 % Normal 40.0-72.0 [facility] Comment on above: Performed By: #### L [id number] ####[facility] ([facility])[address] [place] [address] NRBC (PER 100 WBCS) BY AUTOMATED COUNT 0.0 % Normal 0 [facility] Comment on above: Performed By: #### L [id number] ####[facility] ([facility])[address] [place] [address] PLATELETS (10*3/UL) IN BLOOD AUTOMATED COUNT 194 10*3/uL Normal 150-400 [facility] Comment on above: Performed By: #### L [id number] ####[facility] ([facility])[address] [place] [address] RBC (Bld) [#/Vol] 5.47 10*6/uL Normal 4.20-5.70 [facility] Comment on above: Performed By: #### L [id number] ####[facility] (BEAKER)[address] [place] [address] WBC (Bld) [#/Vol] 7.77 10*3/uL Normal 4.00-10.60 [facility] Comment on above: Performed By: #### L [id number] ####[facility] ([facility])[address] [place] [address] CONSULTon 08-24-2024 CONSULT Normal [facility] CT HEAD WO IV CONTRASTon CT HEAD WO IV CONTRAST Invalid Interpretation Code [facility] CTA CHEST W IV CONTRASTon CTA CHEST W IV CONTRAST [facility] 08-24-2024 Magnesium [Mass/Vol] 1.7 mg/dL Low 1.9-2.7 [facility] Comment on above: Performed By: #### L [id number] ####[facility] ([facility])[address] [place] [address] Magnesium [Mass/Vol] 1.4 mg/dL Low 1.9-2.7 [facility] Comment on above: Performed By: #### L [id number] ####[facility] ([facility])[address] [address] NURSNOTEon 08-24-2024 NURSNOTE Normal [facility] NURSNOTE Normal [facility] PHOSPHORUSon 08-24-2024 Magnesium [Mass/Vol] 3.4 mg/dL Normal 2.5-5.0 [facility] Comment on above: Performed By: #### L [id number] ####[facility] ([facility])[address] [address] POCT GLUCOSE METER UNSOLICIT ED RESULTSon 08-24-2024 Glucose [Mass/Vol] 182 mg/dL High 70-[address] [facility] Comment on above: Order Comment: Waive d Testing in the ED is performed under the ED CLIA certificate #[id number]. Result Comment: droc kol Performed By: #### L [id number] ####[facility] ([facility])[address] [address] Glucose [Mass/Vol] 166 mg/dL High 70-[address] [facility] Comment on above: Order Comment: Waive d Testing in the ED is performed under the ED CLIA certificate #[id number]. Result Comment: sbel cad Performed By: #### L [id number] ####[facility] ([facility])[address] [place] [address] Glucose [Mass/Vol] 150 mg/dL High 70-[address] [facility] Comment on above: Order Comment: Waive d Testing in the ED is performed under the ED CLIA certificate #[id number]. Result Comment: besc obe Performed By: #### L [id number] ####[facility] ([facility])[address] [place] [address] Glucose [Mass/Vol] 136 mg/dL High 70-[address] [facility] Comment on above: Order Comment: Waive d Testing in the ED is performed under the ED CLIA certificate #[id number]. Result Comment: swey [id number] Value Noted Performed By: #### L [id number] ####[facility] ([facility])[address] [place] [address] BASIC METABOLIC PANELon 02-0 -2024 Anion gap [Moles/Vol] 10 mmol/L Normal 7-20 [facility] Comment on above: Performed By: #### L [id number] ####[facility] ([facility])[address] [place] [address] Calcium [Mass/Vol] 9.8 mg/dL Normal 8.6-10.[address] [facility] Comment on above: Performed By: #### L [id number] ####[facility] (BEAKER)[address] [place] [address] Chloride [Moles/Vol] 99 mmol/L Normal 98-107 [facility] Comment on above: Performed By: #### L [id number] ####[facility] (BEAKER)[address] [place] [address] CO2 [Moles/Vol] 33 mmol/L High 21-31 [facility] Comment on above: Performed By: #### L [id number] ####[facility] ([facility])[address] [place] [address] Creatinine [Mass/Vol] 0.94 mg/dL Normal 0.70-1.30 [facility] Comment on above: Performed By: #### L [id number] ####[facility] ([facility])[address] [place] [address] GLOMERULAR FILTRATION RATE ML/MIN/1.73 SQ M.PREDICTED 90.0 mL/min/1.73m*2 Normal >60.0 [facility] Comment on above: Result Comment: [facility]???s estimated glomerular filtration rate (eGFR) will [...] of individuals. Performed By: #### L [id number] ####[facility] ([facility])[address] [place] [address] Glucose [Mass/Vol] 274 mg/dL High 70-[address] [facility] Comment on above: Performed By: #### L [id number] ####[facility] ([facility])[address] [place] [address] Potassium [Moles/Vol] 3.8 mmol/L Normal 3.5-5.1 [facility] Comment on above: Performed By: #### L [id number] ####[facility] ([facility])[address] [place] [address] Sodium [Moles/Vol] 138 mmol/L Normal 136-[address] [facility] Comment on above: Performed By: #### L [id number] ####[facility] ([facility])[address] [place] [address] Urea nitrogen [Mass/Vol] 31 mg/dL High 7-25 [facility] Comment on above: Performed By: #### L [id number] ####[facility] (BEAKER)[address] [place] [address] UREA NITROGEN/CREATININE (MASS RATIO) IN SER/PLAS 33.0 Normal [facility] Comment on above: Performed By: #### L [id number] ####[facility] ([facility] [place] [address] CBC WITH AUTO DIFFERENTIALon 08-23-2024 Basophils (Bld) [#/Vol] 0.06 10*3/uL Normal 0.00-0.20 [facility] Comment on above: Performed By: #### L [id number] ####[facility] ([facility] [place] [address] Basophils/100 WBC (Bld) 0.9 % Normal 0.0-1.0 [facility] Comment on above: Performed By: #### L [id number] ####[facility] (BEAKER)[address] [place] [address] Eosinophils (Bld) [#/Vol] 0.34 10*3/uL Normal 0.00-0.50 [facility] Comment on above: Performed By: #### L [id number] ####[facility] (BEAKER)[address] [place] [address] Eosinophils/100 WBC (Bld) 4.8 % Normal 0.0-6.0 [facility] Comment on above: Performed By: #### L [id number] ####[facility] (BEAKER)[address] [place] [address] Erythrocyte distribution width (RBC) [Ratio] 14.7 % Normal 11.5-15.0 [facility] Comment on above: Performed By: #### L [id number] ####[facility] (BEAKER)[address] [place] [address] ERYTHROCYTE MEAN CORPUSCULAR HEMOGLOBIN CONCENTRATION (G/DL) BY AUTOMATED 31.8 g/dL Low 32.0-35.0 [facility] Comment on above: Performed By: #### L [id number] ####[facility] (BEAKER)[address] [place] [address] Hematocrit (Bld) [Volume fraction] 52.5 % Normal 39.0-55.0 [facility] Comment on above: Performed By: #### L [id number] ####[facility] ([facility] [place] [address] Hemoglobin (Bld) [Mass/Vol] 16.7 g/dL Normal 13.0-17.0 [facility] Comment on above: Performed By: #### L [id number] ####[facility] ([facility])[address] [place] [address] Immature granulocytes (Bld) [#/Vol] 0.05 10*3/uL Normal 0.00-0.20 [facility] Comment on above: Performed By: #### L [id number] ####[facility] ([facility] [place] [address] Immature granulocytes/100 WBC (Bld) 0.7 % Normal 0.0-1.0 [facility] Comment on above: Performed By: #### L [id number] ####[facility] (BEAKER)[address] [place] [address] Lymphocytes (Bld) [#/Vol] 1.15 10*3/uL Low 1.20-4.00 [facility] Comment on above: Performed By: #### L [id number] ####[facility] ([facility])[address] [place] [address] Lymphocytes/100 WBC (Bld) 16.4 % Low 20.0-45.0 [facility] Comment on above: Performed By: #### L [id number] ####[facility] ([facility])[address] [place] [address] MCH (RBC) [Entitic mass] 29.0 pg Normal 27.0-33.0 [facility] Comment on above: Performed By: #### L [id number] ####[facility] ([facility])[address] [place] [address] MCV (RBC) [Entitic vol] 91.1 fL Normal 82.0-98.0 [facility] Comment on above: Performed By: #### L [id number] ####[facility] [place] [address] Monocytes (Bld) [#/Vol] 0.85 10*3/uL Normal 0.10-1.00 [facility] Comment on above: Performed By: #### L [id number] ####[facility] ([facility])[address] [place] [address] Monocytes/100 WBC (Bld) 12.1 % High 5.0-12.0 [facility] [place] Comment on above: Performed By: #### L [id number] ####[facility] ([facility])[address] [place] [address] Neutrophils (Bld) [#/Vol] 4.58 10*3/uL Normal 1.60-7.60 [facility] Comment on above: Performed By: #### L [id number] ####[facility] ([facility])[address] [place] [address] Neutrophils/100 WBC (Bld) 65.1 % Normal 40.0-72.0 [facility] Comment on above: Performed By: #### L [id number] ####[facility] ([facility])[address] [place] [address] NRBC (PER 100 WBCS) BY AUTOMATED COUNT 0.0 % Normal 0 [facility] Comment on above: Performed By: #### L [id number] ####[facility] ([facility] [place] [address] PLATELETS (10*3/UL) IN BLOOD AUTOMATED COUNT 190 10*3/uL Normal 150-400 [facility] Comment on above: Performed By: #### L [id number] ####[facility] ([facility] [place] [address] RBC (Bld) [#/Vol] 5.76 10*6/uL High 4.20-5.70 [facility] Comment on above: Performed By: #### L [id number] ####[facility] ([facility])[address] [place] [address] WBC (Bld) [#/Vol] 7.03 10*3/uL Normal 4.00-10.60 [facility] Comment on above: Performed By: #### L [id number] ####[facility] ([facility])[address] [place] [address] CONSULTon 08-23-2024 CONSULT Normal [facility] LIPID PANELon 08-23-2024 CHOL/HDL 7.8 mg/dL Normal [facility] Comment on above: Performed By: #### L [id number] ####[facility] ([facility])[address] [place] [address] Cholesterol [Mass/Vol] 195 mg/dL Normal 120-200 [facility] Comment on above: Performed By: #### L [id number] ####[facility] ([facility])[address] [place] [address] Magnesium [Mass/Vol] 177 mg/dL High 40-149 [facility] Comment on above: Result Comment: TRIG LYCERIDE REFERENCE RANGE:20 YEARS AND OLDER CARDIOVASCULAR RISKLESS THAN 150 mg/dL LOW [id number] TO 199 mg/dL BORDERLINE [id number] mg/dL AND GREATER HIGH RISK Performed By: #### L [id number] ####[facility] ([facility])[address] [place] [address] Magnesium [Mass/Vol] 135 mg/dL Normal 0-160 [facility] Comment on above: Performed By: #### L [id number] ####[facility] ([facility] [place] [address] Magnesium [Mass/Vol] 25 mg/dL Normal 23-92 [facility] Comment on above: Performed By: #### L [id number] ####[facility] ([facility])[address] [place] [address] NON HDL CHOL. (LDL+VLDL) 170 Normal [facility] Comment on above: Performed By: #### L [id number] ####[facility] ([facility])[address] [place] [address] TOTAL VLDL-C 35 mg/dL Normal 0-40 [facility] Comment on above: Performed By: #### L [id number] ####[facility] ([facility])[address] [place] [address] POCT GLUCOSE METER UNSOLICIT ED RESULTSon 08-23-2024 Glucose [Mass/Vol] 169 mg/dL High 70-[address] [facility] Comment on above: Order Comment: Waive d Testing in the ED is performed under the ED CLIA certificate #[id number]. Result Comment: enoch tti Performed By: #### L [id number] ####[facility] ([facility])[address] [place] [address] Glucose [Mass/Vol] 183 mg/dL High 70-[address] [facility] Comment on above: Order Comment: Waive d Testing in the ED is performed under the ED CLIA certificate #[id number]. Result Comment: ezab ors2 Performed By: #### L [id number] ####[facility] ([facility])[address] [place] [address] Glucose [Mass/Vol] 283 mg/dL High 70-[address] [facility] Comment on above: Order Comment: Waive d Testing in the ED is performed under the ED CLIA certificate #[id number]. Result Comment: ezab ors2 Performed By: #### L [id number] ####[facility] ([facility])[address] [place] [address] Glucose [Mass/Vol] 258 mg/dL High 70-[address] [facility] Comment on above: Order Comment: Waive d Testing in the ED is performed under the ED CLIA certificate #[id number]. Result Comment: tful ks2 Performed By: #### L [id number] ####[facility] ([facility])[address] [place] [address] 30on 08-22-2024 30 Normal [facility] ANTI-XA (HEPARIN LEVEL)on HEPARIN UNFRACTIONATED (U/ML) IN PPP BY CHROMOGENIC METHOD 0.31 IU/mL Normal 0.3-0.7 [facility] Comment on above: Result Comment: Tatyana roxaban and Apixaban will interfere with the anti Xa assay used to monitor UFH and LMWH. Performed By: #### L [id number] ####[facility] ([facility])[address] [place] [address] BASIC METABOLIC PANELon Anion gap [Moles/Vol] 10 mmol/L Normal 7-20 [facility] Comment on above: Performed By: #### L [id number] ####[facility] ([facility])[address] [place] [address] Calcium [Mass/Vol] 9.6 mg/dL Normal 8.6-10.[address] [facility] Comment on above: Performed By: #### L [id number] ####[facility] ([facility])[address] [place] [address] Chloride [Moles/Vol] 102 mmol/L Normal 98-107 [facility] Comment on above: Performed By: #### L [id number] ####[facility] ([facility])[address] [place] [address] CO2 [Moles/Vol] 32 mmol/L High 21-31 [facility] Comment on above: Performed By: #### L [id number] ####[facility] ([facility])[address] [place] [address] Creatinine [Mass/Vol] 1.01 mg/dL Normal 0.70-1.30 [facility] Comment on above: Performed By: #### L [id number] ####[facility] ([facility])[address] [place] [address] GLOMERULAR FILTRATION RATE ML/MIN/1.73 SQ M.PREDICTED 82.5 mL/min/1.73m*2 Normal >60.0 [facility] Comment on above: Result Comment: [facility]???s estimated glomerular filtration rate (eGFR) will [...] of individuals. Performed By: #### L [id number] ####[facility] ([facility])[address] [place] [address] Glucose [Mass/Vol] 263 mg/dL High 70-[address] [facility] Comment on above: Performed By: #### L [id number] ####[facility] ([facility])[address] [place] [address] Potassium [Moles/Vol] 3.7 mmol/L Normal 3.5-5.1 [facility] Comment on above: Performed By: #### L [id number] ####[facility] ([facility])[address] [place] [address] Sodium [Moles/Vol] 140 mmol/L Normal 136-[address] [facility] Comment on above: Performed By: #### L [id number] ####[facility] ([facility])[address] [place] [address] Urea nitrogen [Mass/Vol] 33 mg/dL High 7-25 [facility] Comment on above: Performed By: #### L [id number] ####[facility] ([facility])[address] [place] [address] UREA NITROGEN/CREATININE (MASS RATIO) IN SER/PLAS 32.7 Normal [facility] Comment on above: Performed By: #### L [id number] ####[facility] ([facility] [place] [address] CBC WITH AUTO DIFFERENTIALon 08-22-2024 Basophils (Bld) [#/Vol] 0.05 10*3/uL Normal 0.00-0.20 [facility] Comment on above: Performed By: #### L [id number] ####[facility] ([facility]ER)[address] [place] [address] Basophils/100 WBC (Bld) 0.5 % Normal 0.0-1.0 [facility] Comment on above: Performed By: #### L [id number] ####[facility] ([facility]ER)[address] [place] [address] Eosinophils (Bld) [#/Vol] 0.36 10*3/uL Normal 0.00-0.50 [facility] Comment on above: Performed By: #### L [id number] ####[facility] ([facility])[address] [place] [address] Eosinophils/100 WBC (Bld) 3.9 % Normal 0.0-6.0 [facility] Comment on above: Performed By: #### L [id number] ####[facility] ([facility])[address] [place] [address] Erythrocyte distribution width (RBC) [Ratio] 14.7 % Normal 11.5-15.0 [facility] Comment on above: Performed By: #### L [id number] ####[facility] ([facility])[address] [place] [address] ERYTHROCYTE MEAN CORPUSCULAR HEMOGLOBIN CONCENTRATION (G/DL) BY AUTOMATED 30.8 g/dL Low 32.0-35.0 [facility] Comment on above: Performed By: #### L [id number] ####[facility] ([facility])[address] [place] [address] Hematocrit (Bld) [Volume fraction] 52.9 % Normal 39.0-55.0 [facility] Comment on above: Performed By: #### L [id number] ####[facility] ([facility]ER)[address] [place] [address] Hemoglobin (Bld) [Mass/Vol] 16.3 g/dL Normal 13.0-17.0 [facility] Comment on above: Performed By: #### L [id number] ####[facility] ([facility]ER)[address] [place] [address] Immature granulocytes (Bld) [#/Vol] 0.07 10*3/uL Normal 0.00-0.20 [facility] Comment on above: Performed By: #### L [id number] ####[facility] ([facility]ER)[address] [place] [address] Immature granulocytes/100 WBC (Bld) 0.7 % Normal 0.0-1.0 [facility] Comment on above: Performed By: #### L [id number] ####[facility] ([facility])[address] [place] [address] Lymphocytes (Bld) [#/Vol] 1.16 10*3/uL Low 1.20-4.00 [facility] Comment on above: Performed By: #### L [id number] ####[facility] ([facility])[address] [place] [address] Lymphocytes/100 WBC (Bld) 12.4 % Low 20.0-45.0 [facility] Comment on above: Performed By: #### L [id number] ####[facility] ([facility]ER)[address] [place] [address] MCH (RBC) [Entitic mass] 28.8 pg Normal 27.0-33.0 [facility] Comment on above: Performed By: #### L [id number] ####[facility] ([facility]ER)[address] [place] [address] MCV (RBC) [Entitic vol] 93.5 fL Normal 82.0-98.0 [facility] [place] Comment on above: Performed By: #### L [id number] ####[facility] ([facility]ER)[address] [place] [address] Monocytes (Bld) [#/Vol] 1.21 10*3/uL High 0.10-1.00 [facility] Comment on above: Performed By: #### L [id number] ####[facility] ([facility])[address] [place] [address] Monocytes/100 WBC (Bld) 12.9 % High 5.0-12.0 [facility] [place] Comment on above: Performed By: #### L [id number] ####[facility] ([facility]ER)[address] [place] [address] Neutrophils (Bld) [#/Vol] 6.50 10*3/uL Normal 1.60-7.60 [facility] Comment on above: Performed By: #### L [id number] ####[facility] ([facility])[address] [place] [address] Neutrophils/100 WBC (Bld) 69.6 % Normal 40.0-72.0 [facility] Comment on above: Performed By: #### L [id number] ####[facility] ([facility])[address] [place] [address] NRBC (PER 100 WBCS) BY AUTOMATED COUNT 0.0 % Normal 0 [facility] Comment on above: Performed By: #### L [id number] ####[facility] ([facility])[address] [place] [address] PLATELETS (10*3/UL) IN BLOOD AUTOMATED COUNT 187 10*3/uL Normal 150-400 [facility] Comment on above: Performed By: #### L [id number] ####[facility] ([facility]ER)[address] [place] [address] RBC (Bld) [#/Vol] 5.66 10*6/uL Normal 4.20-5.70 [facility] Comment on above: Performed By: #### L [id number] ####[facility] ([facility]ER)[address] [place] [address] WBC (Bld) [#/Vol] 9.35 10*3/uL Normal 4.00-10.60 [facility] Comment on above: Performed By: #### L [id number] ####[facility] ([facility])[address] [place] [address] POCT GLUCOSE METER UNSOLICIT ED RESULTSon 08-22-2024 Glucose [Mass/Vol] 256 mg/dL High 70-[address] [facility] Comment on above: Order Comment: Waive d Testing in the ED is performed under the ED CLIA certificate #[id number]. Result Comment: ezab ors2 Performed By: #### L [id number] ####[facility] ([facility])[address] [place] [address] Glucose [Mass/Vol] 277 mg/dL High 70-[address] [facility] Comment on above: Order Comment: Waive d Testing in the ED is performed under the ED CLIA certificate #[id number]. Result Comment: ezab ors2 Performed By: #### L [id number] ####[facility] ([facility])[address] [place] [address] ANTI-XA (HEPARIN LEVEL)on HEPARIN UNFRACTIONATED (U/ML) IN PPP BY CHROMOGENIC METHOD 0.30 IU/mL Normal 0.3-0.7 [facility] Comment on above: Result Comment: Tatyana roxaban and Apixaban will interfere with the anti Xa assay used to monitor UFH and LMWH. Performed By: #### L [id number] ####[facility] ([facility])[address] [place] [address] ARTERIAL BLOOD GAS WITH CO-O XIMETRYon 08-21-2024 Base excess Calc (Bld) [Moles/Vol] 6.7 mmol/L High -2.0-3.0 [facility] Comment on above: Performed By: #### L [id number] ####[facility] [id number] [place] [address] [place] CARBOXYHEMOGLOBIN/HEMOGL OBIN TOTAL % IN BLOOD 2.0 % Normal 0.0-3.0 [facility] Comment on above: Performed By: #### L [id number] ####[facility] [id number] [place] [address] [place] CO2 (Bld) [Partial pressure] 43 mm[Hg] Normal 35-48 [facility] Comment on above: Performed By: #### L [id number] ####[facility] [id number] [place] [address] [place] DEOXYGENATED HEMOGLOBIN IN BLOOD 4.9 % Normal 1-5 [facility] Comment on above: Performed By: #### L [id number] ####[facility] [id number] [place] [address] [place] FIO2 50 % Normal [facility] Comment on above: Performed By: #### L [id number] ####[facility] [id number] [place] [address] [place] HCO3 (Bld) [Moles/Vol] 31.3 mmol/L High 21.0-28.0 [facility] Comment on above: Performed By: #### L [id number] ####[facility] [id number] [place] [address] [place] Hemoglobin (Bld) [Mass/Vol] 16.5 g/dL Normal 11.7-17.4 [facility] Comment on above: Performed By: #### L [id number] ####[facility] [id number] [place] [address] [place] METHEMOGLOBIN/100 IN BLOOD 0.7 % Normal 0.0-1.5 [facility] Comment on above: Performed By: #### L [id number] ####[facility] [id number] [place] [address] [place] Oxygen (Bld) [Partial pressure] 68 mm[Hg] Low 83-100 [facility] Comment on above: Performed By: #### L [id number] ####[facility] [id number] [place] [address] [place] OXYGEN SATURATION (%) IN ARTERIAL BLOOD 95.0 % Normal 94.0-98.0 [facility] Comment on above: Performed By: #### L [id number] ####[facility] [id number] [place] [facility] [place] [address] [facility] OXYGENATED HEMOGLOBIN IN BLOOD 92.4 % Normal 90.0-95.0 [facility] Comment on above: Performed By: #### L [id number] ####[facility] [id number] [place] [place] [address] [facility] pH (Bld) 7.47 [pH] High 7.35-7.45 [facility] Comment on above: Performed By: #### L [id number] ####[facility] [id number] [place] [address] [facility] SOURCE OF OXYGEN Bi-PAP Normal [facility] Comment on above: Performed By: #### L [id number] ####[facility] [id number] [place] [facility] [place] [address] [facility] Base excess Calc (Bld) [Moles/Vol] 5.1 mmol/L High -2.0-3.0 [facility] Comment on above: Performed By: #### L [id number] ####[facility] [id number] [place] [address] [facility] CARBOXYHEMOGLOBIN/HEMOGL OBIN TOTAL % IN BLOOD 1.9 % Normal 0.0-3.0 [facility] Comment on above: Performed By: #### L [id number] ####[facility] [id number] [place] [address] [facility] CO2 (Bld) [Partial pressure] 46 mm[Hg] Normal 35-48 [facility] Comment on above: Performed By: #### L [id number] ####[facility] [id number] [place] [address] [place] DEOXYGENATED HEMOGLOBIN IN BLOOD 15.8 % Critically high 1-5 [facility] Comment on above: Performed By: #### L [id number] ####[facility] [id number] [place] [facility] [place] [address] [facility] HCO3 (Bld) [Moles/Vol] 30.5 mmol/L High 21.0-28.0 [facility] Comment on above: Performed By: #### L [id number] ####[facility] [id number] [place] [address] [place] Hemoglobin (Bld) [Mass/Vol] 16.4 g/dL Normal 11.7-17.4 [facility] Comment on above: Performed By: #### L [id number] ####[facility] [id number] [place] [address] [place] LPM 15 Normal [facility] Comment on above: Performed By: #### L [id number] ####[facility] [id number] [place] [address] [place] METHEMOGLOBIN/100 IN BLOOD 0.6 % Normal 0.0-1.5 [facility] Comment on above: Performed By: #### L [id number] ####[facility] [id number] [place] [address] [place] Oxygen (Bld) [Partial pressure] 53 mm[Hg] Invalid Interpretation Code 83-100 [facility] Comment on above: Performed By: #### L [id number] ####[facility] [id number] [place] [address] [place] OXYGEN SATURATION (%) IN ARTERIAL BLOOD 83.8 % Invalid Interpretation Code 94.0-98.0 [facility] Comment on above: Performed By: #### L [id number] ####[facility] [id number] [place] [address] [place] OXYGENATED HEMOGLOBIN IN BLOOD 81.7 % Invalid Interpretation Code 90.0-95.0 [facility] Comment on above: Performed By: #### L [id number] ####[facility] [id number] [place] [address] [place] pH (Bld) 7.43 [pH] Normal 7.35-7.45 [facility] Comment on above: Performed By: #### L [id number] ####[facility] [id number] [place] [address] [place] SOURCE OF OXYGEN SALTER Normal [facility] Comment on above: Performed By: #### L [id number] ####[facility] [id number] [place] [address] [facility] ARTERIAL BLOOD GAS WITH IONI ZED CALCIUMon 08-21-2024 Base excess Calc (Bld) [Moles/Vol] 6.2 mmol/L High -2.0-3.0 [facility] Comment on above: Performed By: #### L [id number] ####[facility] [id number] [place] [address] [facility] CALCIUM IONIZED (MMOL/L) IN BLOOD 1.30 mmol/L Normal 1.15-1.33 [facility] Comment on above: Performed By: #### L [id number] ####[facility] [id number] [place] [address] [facility] CO2 (Bld) [Partial pressure] 45 mm[Hg] Normal 35-48 [facility] Comment on above: Performed By: #### L [id number] ####[facility] [id number] [place] [address] [facility] FIO2 50 % Normal [facility] Comment on above: Performed By: #### L [id number] ####[facility] [id number] [place] [address] [facility] HCO3 (Bld) [Moles/Vol] 31.3 mmol/L High 21.0-28.0 [facility] Comment on above: Performed By: #### L [id number] ####[facility] [id number] [place] [address] [facility] Oxygen (Bld) [Partial pressure] 70 mm[Hg] Low 83-100 [facility] Comment on above: Performed By: #### L [id number] ####[facility] [id number] [place] [address] [facility] OXYGEN SATURATION (%) IN ARTERIAL BLOOD 94.9 % Normal 94.0-98.0 [facility] Comment on above: Performed By: #### L [id number] ####[facility] [id number] [place] [address] [place] PEEP 8 cmH2O Normal [facility] Comment on above: Performed By: #### L [id number] ####[facility] [id number] [place] [address] [place] pH (Bld) 7.45 [pH] Normal 7.35-7.45 [facility] Comment on above: Performed By: #### L [id number] ####[facility] [id number] [place] [address] [place] PRESSURE SUPPORT [address] [facility] Comment on above: Performed By: #### L [id number] ####[facility] [id number] [place] [address] [facility] SOURCE OF OXYGEN Bi-PAP Normal [facility] Comment on above: Performed By: #### L [id number] ####[facility] [id number] [place] [address] [facility] BASIC METABOLIC PANELon 02-0 Anion gap [Moles/Vol] 11 mmol/L Normal 7-20 [facility] Comment on above: Performed By: #### L [id number] ####[facility] ([facility])[address] [place] [address] Calcium [Mass/Vol] 9.4 mg/dL Normal 8.6-10.[address] [facility] Comment on above: Performed By: #### L [id number] ####[facility] ([facility])[address] [place] [address] Chloride [Moles/Vol] 101 mmol/L Normal 98-107 [facility] Comment on above: Performed By: #### L [id number] ####[facility] ([facility])[address] [place] [address] CO2 [Moles/Vol] 30 mmol/L Normal 21-31 [facility] Comment on above: Performed By: #### L [id number] ####[facility] ([facility])[address] [place] [address] Creatinine [Mass/Vol] 1.05 mg/dL Normal 0.70-1.30 [facility] Comment on above: Performed By: #### L [id number] ####[facility] ([facility])[address] [place] [address] GLOMERULAR FILTRATION RATE ML/MIN/1.73 SQ M.PREDICTED 78.8 mL/min/1.73m*2 Normal >60.0 [facility] Comment on above: Result Comment: [facility]???s estimated glomerular filtration rate (eGFR) will [...] of individuals. Performed By: #### L [id number] ####[facility] ([facility])[address] [place] [address] Glucose [Mass/Vol] 269 mg/dL High 70-[address] [facility] Comment on above: Performed By: #### L [id number] ####[facility] ([facility])[address] [place] [address] Potassium [Moles/Vol] 4.0 mmol/L Normal 3.5-5.1 [facility] Comment on above: Performed By: #### L [id number] ####[facility] ([facility])[address] [place] [address] Sodium [Moles/Vol] 138 mmol/L Normal 136-[address] [facility] Comment on above: Performed By: #### L [id number] ####[facility] ([facility])[address] [place] [address] Urea nitrogen [Mass/Vol] 35 mg/dL High 7-25 [facility] Comment on above: Performed By: #### L [id number] ####[facility] ([facility])[address] [place] [address] UREA NITROGEN/CREATININE (MASS RATIO) IN SER/PLAS 33.3 Normal [facility] Comment on above: Performed By: #### L [id number] ####[facility] (BEAKER)[address] [place] [address] CALCIUM, IONIZEDon CALCIUM IONIZED (MMOL/L) IN BLOOD 1.29 mmol/L Normal 1.15-1.33 [facility] Comment on above: Performed By: #### C ALCIUM, IONIZED ####[facility] [id number] [place] [address] [place] CBC WITH AUTO DIFFERENTIALon 08-21-2024 Basophils (Bld) [#/Vol] 0.05 10*3/uL Normal 0.00-0.20 [facility] Comment on above: Performed By: #### L [id number] ####[facility] (BEAKER)[address] [place] [address] Basophils/100 WBC (Bld) 0.6 % Normal 0.0-1.0 [facility] Comment on above: Performed By: #### L [id number] ####[facility] (BEAKER)[address] [place] [address] Eosinophils (Bld) [#/Vol] 0.43 10*3/uL Normal 0.00-0.50 [facility] Comment on above: Performed By: #### L [id number] ####[facility] (BEAKER)[address] [place] [address] Eosinophils/100 WBC (Bld) 5.2 % Normal 0.0-6.0 [facility] Comment on above: Performed By: #### L [id number] ####[facility] (BEAKER)[address] [place] [address] Erythrocyte distribution width (RBC) [Ratio] 14.8 % Normal 11.5-15.0 [facility] Comment on above: Performed By: #### L [id number] ####[facility] (BEAKER)[address] [place] [address] ERYTHROCYTE MEAN CORPUSCULAR HEMOGLOBIN CONCENTRATION (G/DL) BY AUTOMATED 31.1 g/dL Low 32.0-35.0 [facility] Comment on above: Performed By: #### L [id number] ####[facility] ([facility] [place] [address] Hematocrit (Bld) [Volume fraction] 52.1 % Normal 39.0-55.0 [facility] Comment on above: Performed By: #### L [id number] ####[facility] ([facility])[address] [place] [address] Hemoglobin (Bld) [Mass/Vol] 16.2 g/dL Normal 13.0-17.0 [facility] Comment on above: Performed By: #### L [id number] ####[facility] ([facility] [place] [address] Immature granulocytes (Bld) [#/Vol] 0.06 10*3/uL Normal 0.00-0.20 [facility] Comment on above: Performed By: #### L [id number] ####[facility] ([facility])[address] [place] [address] Immature granulocytes/100 WBC (Bld) 0.7 % Normal 0.0-1.0 [facility] Comment on above: Performed By: #### L [id number] ####[facility] ([facility] [place] [address] Lymphocytes (Bld) [#/Vol] 1.10 10*3/uL Low 1.20-4.00 [facility] Comment on above: Performed By: #### L [id number] ####[facility] (BEAKER)[address] [place] [address] Lymphocytes/100 WBC (Bld) 13.3 % Low 20.0-45.0 [facility] Comment on above: Performed By: #### L [id number] ####[facility] (BEAKER)[address] [place] [address] MCH (RBC) [Entitic mass] 29.1 pg Normal 27.0-33.0 [facility] Comment on above: Performed By: #### L [id number] ####[facility] ([facility])[address] [place] [address] MCV (RBC) [Entitic vol] 93.7 fL Normal 82.0-98.0 [facility] [place] Comment on above: Performed By: #### L [id number] ####[facility] ([facility])[address] [place] [address] Monocytes (Bld) [#/Vol] 0.92 10*3/uL Normal 0.10-1.00 [facility] Comment on above: Performed By: #### L [id number] ####[facility] ([facility])[address] [place] [address] Monocytes/100 WBC (Bld) 11.1 % Normal 5.0-12.0 [facility] [place] Comment on above: Performed By: #### L [id number] ####[facility] ([facility])[address] [place] [address] Neutrophils (Bld) [#/Vol] 5.72 10*3/uL Normal 1.60-7.60 [facility] Comment on above: Performed By: #### L [id number] ####[facility] ([facility])[address] [place] [address] Neutrophils/100 WBC (Bld) 69.1 % Normal 40.0-72.0 [facility] Comment on above: Performed By: #### L [id number] ####[facility] ([facility])[address] [place] [address] NRBC (PER 100 WBCS) BY AUTOMATED COUNT 0.0 % Normal 0 [facility] Comment on above: Performed By: #### L [id number] ####[facility] (BEAKER)[address] [place] [address] PLATELETS (10*3/UL) IN BLOOD AUTOMATED COUNT 199 10*3/uL Normal 150-400 [facility] Comment on above: Performed By: #### L [id number] ####[facility] ([facility])[address] [place] [address] RBC (Bld) [#/Vol] 5.56 10*6/uL Normal 4.20-5.70 [facility] Comment on above: Performed By: #### L [id number] ####[facility] ([facility])[address] [place] [address] WBC (Bld) [#/Vol] 8.28 10*3/uL Normal 4.00-10.60 [facility] Comment on above: Performed By: #### L [id number] ####[facility] ([facility])[address] [place] [address] CT BRAIN PERFUSIONon 025 CT BRAIN PERFUSION Invalid Interpretation Code [facility] CT HEAD WO IV CONTRASTon CT HEAD WO IV CONTRAST Normal [facility] HEAD W IV CONTRASTon CTA HEAD W IV CONTRAST [facility]K [facility] IV CONTRASTon CTA NECK W IV CONTRAST Normal [facility] MAGNESIUMon 08-21-2024 Magnesium [Mass/Vol] 1.8 mg/dL Low 1.9-2.7 [facility] Comment on above: Performed By: #### L [id number] ####[facility] ([facility])[address] [place] [address] MRSA/MSSA DNA NASALon 2024 MRSA DNA Positive Abnormal Negative [facility] Comment on above: Order Comment: Testi [...] preclude nasal colonization. Performed By: #### L [id number] ####[facility] ([facility])[address] [place] [address] MSSA DNA Negative Normal Negative [facility] Comment on above: Order Comment: Testi [...] preclude nasal colonization. Performed By: #### L [id number] ####[facility] ([facility])[address] [place] [address] PHOSPHORUSon 08-21-2024 Magnesium [Mass/Vol] 2.5 mg/dL Normal 2.5-5.0 [facility] Comment on above: Performed By: #### L [id number] ####[facility] ([facility])[address] [place] [address] POCT GLUCOSE METER UNSOLICIT ED RESULTSon 08-21-2024 Glucose [Mass/Vol] 230 mg/dL High 70-[address] [facility] Comment on above: Order Comment: Waive d Testing in the ED is performed under the ED CLIA certificate #[id number]. Result Comment: [email or web address] Performed By: #### L [id number] ####[facility] ([facility])[address] [place] [address] Glucose [Mass/Vol] 226 mg/dL High 70-[address] [facility] Comment on above: Order Comment: Waive d Testing in the ED is performed under the ED CLIA certificate #[id number]. Result Comment: [email or web address] Performed By: #### L [id number] ####[facility] ([facility])[address] [place] [address] Glucose [Mass/Vol] 229 mg/dL High 70-[address] [facility] Comment on above: Order Comment: Waive d Testing in the ED is performed under the ED CLIA certificate #[id number]. Result Comment: [email or web address] Performed By: #### L [id number] ####[facility] (BEAKER)[address] [facility] [place] [address] Glucose [Mass/Vol] 234 mg/dL High 70-[address] [facility] Comment on above: Order Comment: Waive d Testing in the ED is performed under the ED CLIA certificate #[id number]. Result Comment: [email or web address] Performed By: #### L [id number] ####[facility] ([facility])[address] [facility] [place] [address] POTASSIUM, WHOLE BLOODon Potassium [Moles/Vol] 3.3 mmol/L Low 3.5-5.1 [facility] Comment on above: Performed By: #### P OTASSIUM, WHOLE BLOOD ####[facility] [id number] [place] [address] [facility] SODIUM, WHOLE BLOODon 2024 SODIUM, WHOLE BLOOD 137 Normal 136-145 [facility] Comment on above: Performed By: #### S ODIUM, WHOLE BLOOD ####[facility] [id number] [place] [address] [facility] 30on 08-20-2024 30 Normal [facility] ANTI-XA (HEPARIN LEVEL)on HEPARIN UNFRACTIONATED (U/ML) IN PPP BY CHROMOGENIC METHOD 0.30 IU/mL Normal 0.3-0.7 [facility] Comment on above: Result Comment: Tatyana roxaban and Apixaban will interfere with the anti Xa assay used to monitor UFH and LMWH. Performed By: #### L [id number] ####[facility] (BEAKER)[address] [employer] [address] BASIC METABOLIC PANELon 07-23 Anion gap [Moles/Vol] 8 mmol/L Normal 7-20 [facility] Comment on above: Performed By: #### L [id number] ####[facility] (BEAKER)[address] [facility] [place] [address] Calcium [Mass/Vol] 9.4 mg/dL Normal 8.6-10.[address] [facility] Comment on above: Performed By: #### L [id number] ####[facility] ([facility])[address] [place] [address] Chloride [Moles/Vol] 99 mmol/L Normal 98-107 [facility] Comment on above: Performed By: #### L [id number] ####[facility] ([facility])[address] [place] [address] CO2 [Moles/Vol] 34 mmol/L High 21-31 [facility] Comment on above: Performed By: #### L [id number] ####[facility] ([facility])[address] [place] [address] Creatinine [Mass/Vol] 0.97 mg/dL Normal 0.70-1.30 [facility] Comment on above: Performed By: #### L [id number] ####[facility] ([facility])[address] [place] [address] GLOMERULAR FILTRATION RATE ML/MIN/1.73 SQ M.PREDICTED 86.6 mL/min/1.73m*2 Normal >60.0 [facility] Comment on above: Result Comment: [facility]???s estimated glomerular filtration rate (eGFR) will [...] of individuals. Performed By: #### L [id number] ####[facility] ([facility])[address] [place] [address] Glucose [Mass/Vol] 267 mg/dL High 70-[address] [facility] Comment on above: Performed By: #### L [id number] ####[facility] ([facility])[address] [place] [address] Potassium [Moles/Vol] 3.9 mmol/L Normal 3.5-5.1 [facility] Comment on above: Performed By: #### L [id number] ####[facility] ([facility])[address] [place] [address] Sodium [Moles/Vol] 137 mmol/L Normal 136-[address] [facility] Comment on above: Performed By: #### L [id number] ####[facility] ([facility])[address] [place] [address] Urea nitrogen [Mass/Vol] 33 mg/dL High 7-25 [facility] Comment on above: Performed By: #### L [id number] ####[facility] ([facility])[address] [place] [address] UREA NITROGEN/CREATININE (MASS RATIO) IN SER/PLAS 34.0 Normal [facility] Comment on above: Performed By: #### L [id number] ####[facility] ([facility])[address] [place] [address] CBC WITH AUTO DIFFERENTIALon 08-20-2024 Basophils (Bld) [#/Vol] 0.04 10*3/uL Normal 0.00-0.20 [facility] Comment on above: Performed By: #### L [id number] ####[facility] ([facility])[address] [place] [address] Basophils/100 WBC (Bld) 0.4 % Normal 0.0-1.0 [facility] [place] Comment on above: Performed By: #### L [id number] ####[facility] ([facility])[address] [place] [address] Eosinophils (Bld) [#/Vol] 0.58 10*3/uL High 0.00-0.50 [facility] Comment on above: Performed By: #### L [id number] ####[facility] ([facility])[address] [place] [address] Eosinophils/100 WBC (Bld) 5.6 % Normal 0.0-6.0 [facility] Comment on above: Performed By: #### L [id number] ####[facility] ([facility])[address] [place] [address] Erythrocyte distribution width (RBC) [Ratio] 15.1 % High 11.5-15.0 [facility] Comment on above: Performed By: #### L [id number] ####[facility] ([facility])[address] [place] [address] ERYTHROCYTE MEAN CORPUSCULAR HEMOGLOBIN CONCENTRATION (G/DL) BY AUTOMATED 30.5 g/dL Low 32.0-35.0 [facility] Comment on above: Performed By: #### L [id number] ####[facility] ([facility])[address] [place] [address] Hematocrit (Bld) [Volume fraction] 52.1 % Normal 39.0-55.0 [facility] Comment on above: Performed By: #### L [id number] ####[facility] ([facility])[address] [place] [address] Hemoglobin (Bld) [Mass/Vol] 15.9 g/dL Normal 13.0-17.0 [facility] Comment on above: Performed By: #### L [id number] ####[facility] ([facility])[address] [place] [address] Immature granulocytes (Bld) [#/Vol] 0.07 10*3/uL Normal 0.00-0.20 [facility] Comment on above: Performed By: #### L [id number] ####[facility] ([facility])[address] [place] [address] Immature granulocytes/100 WBC (Bld) 0.7 % Normal 0.0-1.0 [facility] Comment on above: Performed By: #### L [id number] ####[facility] (BEAKER)[address] [place] [address] Lymphocytes (Bld) [#/Vol] 0.94 10*3/uL Low 1.20-4.00 [facility] Comment on above: Performed By: #### L [id number] ####[facility] (BEAKER)[address] [place] [address] Lymphocytes/100 WBC (Bld) 9.1 % Low 20.0-45.0 [facility] Comment on above: Performed By: #### L [id number] ####[facility] ([facility])[address] [place] [address] MCH (RBC) [Entitic mass] 29.0 pg Normal 27.0-33.0 [facility] Comment on above: Performed By: #### L [id number] ####[facility] ([facility])[address] [place] [address] MCV (RBC) [Entitic vol] 94.9 fL Normal 82.0-98.0 [facility] [place] Comment on above: Performed By: #### L [id number] ####[facility] ([facility])[address] [place] [address] Monocytes (Bld) [#/Vol] 0.95 10*3/uL Normal 0.10-1.00 [facility] Comment on above: Performed By: #### L [id number] ####[facility] (BEAKER)[address] [place] [address] Monocytes/100 WBC (Bld) 9.2 % Normal 5.0-12.0 [facility] [place] Comment on above: Performed By: #### L [id number] ####[facility] (BEAKER)[address] [place] [address] Neutrophils (Bld) [#/Vol] 7.72 10*3/uL High 1.60-7.60 [facility] Comment on above: Performed By: #### L [id number] ####[facility] (BEAKER)[address] [place] [address] Neutrophils/100 WBC (Bld) 75.0 % High 40.0-72.0 [facility] Comment on above: Performed By: #### L [id number] ####[facility] ([facility])[address] [place] [address] NRBC (PER 100 WBCS) BY AUTOMATED COUNT 0.0 % Normal 0 [facility] Comment on above: Performed By: #### L [id number] ####[facility] ([facility])[address] [place] [address] PLATELETS (10*3/UL) IN BLOOD AUTOMATED COUNT 209 10*3/uL Normal 150-400 [facility] Comment on above: Performed By: #### L [id number] ####[facility] ([facility])[address] [place] [address] RBC (Bld) [#/Vol] 5.49 10*6/uL Normal 4.20-5.70 [facility] Comment on above: Performed By: #### L [id number] ####[facility] ([facility])[address] [place] [address] WBC (Bld) [#/Vol] 10.30 10*3/uL Normal 4.00-10.60 [facility] Comment on above: Performed By: #### L [id number] ####[facility] ([facility])[address] [place] [address] MAGNESIUMon 08-20-2024 Magnesium [Mass/Vol] 1.9 mg/dL Normal 1.9-2.7 [facility] Comment on above: Performed By: #### L [id number] ####[facility] ([facility])[address] [place] [address] PHOSPHORUSon 08-20-2024 Magnesium [Mass/Vol] 2.1 mg/dL Low 2.5-5.0 [facility] Comment on above: Performed By: #### L [id number] ####[facility] ([facility])[address] [place] [address] POCT GLUCOSE METER UNSOLICIT ED RESULTSon 08-20-2024 Glucose [Mass/Vol] 268 mg/dL High 70-[address] [facility] Comment on above: Order Comment: Waive d Testing in the ED is performed under the ED CLIA certificate #[id number]. Result Comment: [email or web address] [email or web address] Performed By: #### L [id number] ####[facility] (BEAKER)[address] [place] [address] 30on 08-19-2024 30 Normal [facility] 30 Normal [facility] ANTI-XA (HEPARIN LEVEL)on HEPARIN UNFRACTIONATED (U/ML) IN PPP BY CHROMOGENIC METHOD 0.41 IU/mL Normal 0.3-0.7 [facility] Comment on above: Result Comment: Tatyana roxaban and Apixaban will interfere with the anti Xa assay used to monitor UFH and LMWH. Performed By: #### L [id number] ####[facility] (BEAKER)[address] [place] [address] BASIC METABOLIC PANELon 07-23 Anion gap [Moles/Vol] 8 mmol/L Normal 7-20 [facility] Comment on above: Performed By: #### L [id number] ####[facility] (BEAKER)[address] [place] [address] Calcium [Mass/Vol] 8.9 mg/dL Normal 8.6-10.[address] [facility] Comment on above: Performed By: #### L [id number] ####[facility] (BEAKER)[address] [place] [address] Chloride [Moles/Vol] 99 mmol/L Normal 98-107 [facility] Comment on above: Performed By: #### L [id number] ####[facility] (BEAKER)[address] [place] [address] CO2 [Moles/Vol] 37 mmol/L High 21-31 [facility] Comment on above: Performed By: #### L [id number] ####[facility] (BEAKER)[address] [place] [address] Creatinine [Mass/Vol] 1.00 mg/dL Normal 0.70-1.30 [facility] Comment on above: Performed By: #### L [id number] ####[facility] ([facility])[address] [place] [address] GLOMERULAR FILTRATION RATE ML/MIN/1.73 SQ M.PREDICTED 83.5 mL/min/1.73m*2 Normal >60.0 [facility] Comment on above: Result Comment: [facility]???s estimated glomerular filtration rate (eGFR) will [...] of individuals. Performed By: #### L [id number] ####[facility] ([facility])[address] [place] [address] Glucose [Mass/Vol] 219 mg/dL High 70-[address] [facility] Comment on above: Performed By: #### L [id number] ####[facility] ([facility])[address] [place] [address] Potassium [Moles/Vol] 3.9 mmol/L Normal 3.5-5.1 [facility] Comment on above: Performed By: #### L [id number] ####[facility] ([facility])[address] [place] [address] Sodium [Moles/Vol] 140 mmol/L Normal 136-[address] [facility] Comment on above: Performed By: #### L [id number] ####[facility] ([facility])[address] [place] [address] Urea nitrogen [Mass/Vol] 28 mg/dL High 7-25 [facility] Comment on above: Performed By: #### L [id number] ####[facility] ([facility])[address] [place] [address] UREA NITROGEN/CREATININE (MASS RATIO) IN SER/PLAS 28.0 Normal [facility] Comment on above: Performed By: #### L [id number] ####[facility] (BEAKER)[address] [place] [address] CBC WITH AUTO DIFFERENTIALon 08-19-2024 Basophils (Bld) [#/Vol] 0.04 10*3/uL Normal 0.00-0.20 [facility] Comment on above: Performed By: #### L [id number] ####[facility] ([facility] [place] [address] Basophils/100 WBC (Bld) 0.4 % Normal 0.0-1.0 [facility] Comment on above: Performed By: #### L [id number] ####[facility] ([facility] [place] [address] Eosinophils (Bld) [#/Vol] 0.62 10*3/uL High 0.00-0.50 [facility] Comment on above: Performed By: #### L [id number] ####[facility] ([facility] [place] [address] Eosinophils/100 WBC (Bld) 6.7 % High 0.0-6.0 [facility] Comment on above: Performed By: #### L [id number] ####[facility] ([facility] [place] [address] Erythrocyte distribution width (RBC) [Ratio] 15.4 % High 11.5-15.0 [facility] Comment on above: Performed By: #### L [id number] ####[facility] (BEAKER)[address] [place] [address] ERYTHROCYTE MEAN CORPUSCULAR HEMOGLOBIN CONCENTRATION (G/DL) BY AUTOMATED 29.8 g/dL Low 32.0-35.0 [facility] Comment on above: Performed By: #### L [id number] ####[facility] (BEAKER)[address] [place] [address] Hematocrit (Bld) [Volume fraction] 49.4 % Normal 39.0-55.0 [facility] Comment on above: Performed By: #### L [id number] ####[facility] (BEAKER)[address] [place] [address] Hemoglobin (Bld) [Mass/Vol] 14.7 g/dL Normal 13.0-17.0 [facility] Comment on above: Performed By: #### L [id number] ####[facility] (BEAKER)[address] [place] [address] Immature granulocytes (Bld) [#/Vol] 0.06 10*3/uL Normal 0.00-0.20 [facility] Comment on above: Performed By: #### L [id number] ####[facility] (BEAKER)[address] [place] [address] Immature granulocytes/100 WBC (Bld) 0.7 % Normal 0.0-1.0 [facility] Comment on above: Performed By: #### L [id number] ####[facility] (BEAKER)[address] [place] [address] Lymphocytes (Bld) [#/Vol] 0.86 10*3/uL Low 1.20-4.00 [facility] Comment on above: Performed By: #### L [id number] ####[facility] (BEAKER)[address] [place] [address] Lymphocytes/100 WBC (Bld) 9.3 % Low 20.0-45.0 [facility] Comment on above: Performed By: #### L [id number] ####[facility] ([facility])[address] [place] [address] MCH (RBC) [Entitic mass] 28.9 pg Normal 27.0-33.0 [facility] Comment on above: Performed By: #### L [id number] ####[facility] ([facility])[address] [place] [address] MCV (RBC) [Entitic vol] 97.2 fL Normal 82.0-98.0 [facility] Comment on above: Performed By: #### L [id number] ####[facility] ([facility])[address] [place] [address] Monocytes (Bld) [#/Vol] 0.94 10*3/uL Normal 0.10-1.00 [facility] Comment on above: Performed By: #### L [id number] ####[facility] ([facility])[address] [place] [address] Monocytes/100 WBC (Bld) 10.2 % Normal 5.0-12.0 [facility] Comment on above: Performed By: #### L [id number] ####[facility] CENTER)[address] [place] [address] Neutrophils (Bld) [#/Vol] 6.68 10*3/uL Normal 1.60-7.60 [facility] Comment on above: Performed By: #### L [id number] ####[facility] ([facility])[address] [place] [address] Neutrophils/100 WBC (Bld) 72.7 % High 40.0-72.0 [facility] Comment on above: Performed By: #### L [id number] ####[facility] (BEAKER)[address] [place] [address] NRBC (PER 100 WBCS) BY AUTOMATED COUNT 0.0 % Normal 0 [facility] Comment on above: Performed By: #### L [id number] ####[facility] ([facility] [place] [address] PLATELETS (10*3/UL) IN BLOOD AUTOMATED COUNT 198 10*3/uL Normal 150-400 [facility] Comment on above: Performed By: #### L [id number] ####[facility] (BEAKER)[address] [place] [address] RBC (Bld) [#/Vol] 5.08 10*6/uL Normal 4.20-5.70 [facility] Comment on above: Performed By: #### L [id number] ####[facility] ([facility] [place] [address] WBC (Bld) [#/Vol] 9.20 10*3/uL Normal 4.00-10.60 [facility] Comment on above: Performed By: #### L [id number] ####[facility] ([facility])[address] [place] [address] CONSULTon 08-19-2024 CONSULT Normal [facility] MAGNESIUMon 08-19-2024 Magnesium [Mass/Vol] 1.9 mg/dL Normal 1.9-2.7 [facility] Comment on above: Performed By: #### L [id number] ####[facility] ([facility])[address] [place] [address] PHOSPHORUSon 08-19-2024 Magnesium [Mass/Vol] 2.9 mg/dL Normal 2.5-5.0 [facility] Comment on above: Performed By: #### L [id number] ####[facility] ([facility])[address] [place] [address] POCT GLUCOSE METER UNSOLICIT ED RESULTSon 08-19-2024 Glucose [Mass/Vol] 239 mg/dL High 70-[address] [facility] Comment on above: Order Comment: Waive d Testing in the ED is performed under the ED CLIA certificate #[id number]. Result Comment: [email or web address] Performed By: #### L [id number] ####[facility] ([facility])[address] [place] [address] Glucose [Mass/Vol] 251 mg/dL High 70-[address] [facility] Comment on above: Order Comment: Waive d Testing in the ED is performed under the ED CLIA certificate #[id number]. Result Comment: [email or web address] [email or web address] Performed By: #### L [id number] ####[facility] (BEAKER)[address] [place] [address] Glucose [Mass/Vol] 185 mg/dL High 70-[address] [facility] Comment on above: Order Comment: Waive d Testing in the ED is performed under the ED CLIA certificate #[id number]. Result Comment: [email or web address] Performed By: #### L [id number] ####[facility] ([facility])[address] [place] [address] TRIGLYCERIDESon 08-19-2024 FASTING? UNKNOWN Normal [facility] Comment on above: Performed By: #### L [id number] ####[facility] ([facility])[address] [place] [address] Magnesium [Mass/Vol] 192 mg/dL High 40-149 [facility] Comment on above: Result Comment: TRIG LYCERIDE REFERENCE RANGE:20 YEARS AND OLDER CARDIOVASCULAR RISKLESS THAN 150 mg/dL LOW [id number] TO 199 mg/dL BORDERLINE [id number] mg/dL AND GREATER HIGH RISK Performed By: #### L [id number] ####[facility] ([facility])[address] [place] [address] ANTI-XA (HEPARIN LEVEL)on HEPARIN UNFRACTIONATED (U/ML) IN PPP BY CHROMOGENIC METHOD 0.50 IU/mL Normal 0.3-0.7 [facility] Comment on above: Result Comment: [place] roxaban and Apixaban will interfere with the anti Xa assay used to monitor UFH and LMWH. Performed By: #### L [id number] ####[facility] ([facility])[address] [place] [address] HEPARIN UNFRACTIONATED (U/ML) IN PPP BY CHROMOGENIC METHOD 0.60 IU/mL Normal 0.3-0.7 [facility] Comment on above: Result Comment: [place] roxaban and Apixaban will interfere with the anti Xa assay used to monitor UFH and LMWH. Performed By: #### L [id number] ####[facility] ([facility])[address] [place] [address] BASIC METABOLIC PANELon 07-22 Anion gap [Moles/Vol] 8 mmol/L Normal 7-20 [facility] Comment on above: Performed By: #### L [id number] ####[facility] ([facility])[address] [place] [address] Calcium [Mass/Vol] 8.7 mg/dL Normal 8.6-10.[address] [facility] Comment on above: Performed By: #### L [id number] ####[facility] ([facility])[address] [place] [address] Chloride [Moles/Vol] 98 mmol/L Normal 98-107 [facility] Comment on above: Performed By: #### L [id number] ####[facility] ([facility])[address] [place] [address] CO2 [Moles/Vol] 41 mmol/L Critically high 21-31 [facility] Comment on above: Performed By: #### L [id number] ####[facility] ([facility])[address] [place] [address] Creatinine [Mass/Vol] 1.05 mg/dL Normal 0.70-1.30 [facility] Comment on above: Performed By: #### L [id number] ####[facility] ([facility])[address] [place] [address] GLOMERULAR FILTRATION RATE ML/MIN/1.73 SQ M.PREDICTED 78.8 mL/min/1.73m*2 Normal >60.0 [facility] Comment on above: Result Comment: [facility]???s estimated glomerular filtration rate (eGFR) will [...] of individuals. Performed By: #### L [id number] ####[facility] ([facility])[address] [place] [address] Glucose [Mass/Vol] 201 mg/dL High 70-[address] [facility] Comment on above: Performed By: #### L [id number] ####[facility] ([facility] [place] [address] Potassium [Moles/Vol] 3.7 mmol/L Normal 3.5-5.1 [facility] Comment on above: Performed By: #### L [id number] ####[facility] ([facility])[address] [place] [address] Sodium [Moles/Vol] 143 mmol/L Normal 136-[address] [facility] Comment on above: Performed By: #### L [id number] ####[facility] ([facility])[address] [place] [address] Urea nitrogen [Mass/Vol] 25 mg/dL Normal 7-25 [facility] Comment on above: Performed By: #### L [id number] ####[facility] ([facility])[address] [place] [address] UREA NITROGEN/CREATININE (MASS RATIO) IN SER/PLAS 23.8 Normal [facility] Comment on above: Performed By: #### L [id number] ####[facility] ([facility])[address] [place] [address] CBC WITH AUTO DIFFERENTIALon 08-18-2024 Basophils (Bld) [#/Vol] 0.03 10*3/uL Normal 0.00-0.20 [facility] Comment on above: Performed By: #### L [id number] ####[facility] ([facility])[address] [place] [address] Basophils/100 WBC (Bld) 0.3 % Normal 0.0-1.0 [facility] Comment on above: Performed By: #### L [id number] ####[facility] ([facility])[address] [place] [address] Eosinophils (Bld) [#/Vol] 0.45 10*3/uL Normal 0.00-0.50 [facility] Comment on above: Performed By: #### L [id number] ####[facility] (BEAKER)[address] [place] [address] Eosinophils/100 WBC (Bld) 5.0 % Normal 0.0-6.0 [facility] Comment on above: Performed By: #### L [id number] ####[facility] (BEAKER)[address] [place] [address] Erythrocyte distribution width (RBC) [Ratio] 15.5 % High 11.5-15.0 [facility] Comment on above: Performed By: #### L [id number] ####[facility] (BEAKER)[address] [place] [address] ERYTHROCYTE MEAN CORPUSCULAR HEMOGLOBIN CONCENTRATION (G/DL) BY AUTOMATED 29.7 g/dL Low 32.0-35.0 [facility] Comment on above: Performed By: #### L [id number] ####[facility] ([facility])[address] [place] [address] Hematocrit (Bld) [Volume fraction] 49.5 % Normal 39.0-55.0 [facility] Comment on above: Performed By: #### L [id number] ####[facility] (BEAKER)[address] [place] [address] Hemoglobin (Bld) [Mass/Vol] 14.7 g/dL Normal 13.0-17.0 [facility] Comment on above: Performed By: #### L [id number] ####[facility] (BEAKER)[address] [place] [address] Immature granulocytes (Bld) [#/Vol] 0.05 10*3/uL Normal 0.00-0.20 [facility] Comment on above: Performed By: #### L [id number] ####[facility] (BEAKER)[address] [place] [address] Immature granulocytes/100 WBC (Bld) 0.6 % Normal 0.0-1.0 [facility] Comment on above: Performed By: #### L [id number] ####[facility] (BEAKER)[address] [place] [address] Lymphocytes (Bld) [#/Vol] 0.93 10*3/uL Low 1.20-4.00 [facility] Comment on above: Performed By: #### L [id number] ####[facility] (BEAKER)[address] [place] [address] Lymphocytes/100 WBC (Bld) 10.4 % Low 20.0-45.0 [facility] Comment on above: Performed By: #### L [id number] ####[facility] (BEAKER)[address] [place] [address] MCH (RBC) [Entitic mass] 29.2 pg Normal 27.0-33.0 [facility] Comment on above: Performed By: #### L [id number] ####[facility] (BEAKER)[address] [place] [address] MCV (RBC) [Entitic vol] 98.2 fL High 82.0-98.0 [facility] Comment on above: Performed By: #### L [id number] ####[facility] (BEAKER)[address] [place] [address] Monocytes (Bld) [#/Vol] 1.06 10*3/uL High 0.10-1.00 [facility] Comment on above: Performed By: #### L [id number] ####[facility] (BEAKER)[address] [place] [address] Monocytes/100 WBC (Bld) 11.9 % Normal 5.0-12.0 [facility] Comment on above: Performed By: #### L [id number] ####[facility] (BEAKER)[address] [place] [address] Neutrophils (Bld) [#/Vol] 6.41 10*3/uL Normal 1.60-7.60 [facility] Comment on above: Performed By: #### L [id number] ####[facility] (BEAKER)[address] [place] [address] Neutrophils/100 WBC (Bld) 71.8 % Normal 40.0-72.0 [facility] Comment on above: Performed By: #### L [id number] ####[facility] ([facility])[address] [place] [address] NRBC (PER 100 WBCS) BY AUTOMATED COUNT 0.0 % Normal 0 [facility] Comment on above: Performed By: #### L [id number] ####[facility] ([facility])[address] [place] [address] PLATELETS (10*3/UL) IN BLOOD AUTOMATED COUNT 208 10*3/uL Normal 150-400 [facility] Comment on above: Performed By: #### L [id number] ####[facility] ([facility])[address] [place] [address] RBC (Bld) [#/Vol] 5.04 10*6/uL Normal 4.20-5.70 [facility] Comment on above: Performed By: #### L [id number] ####[facility] ([facility])[address] [place] [address] WBC (Bld) [#/Vol] 8.93 10*3/uL Normal 4.00-10.60 [facility] Comment on above: Performed By: #### L [id number] ####[facility] ([facility])[address] [place] [address] CONSULTon 08-18-2024 CONSULT Normal [facility] MAGNESIUMon 08-18-2024 Magnesium [Mass/Vol] 2.1 mg/dL Normal 1.9-2.7 [facility] Comment on above: Performed By: #### L [id number] ####[facility] ([facility])[address] [place] [address] PHOSPHORUSon 08-18-2024 Magnesium [Mass/Vol] 2.9 mg/dL Normal 2.5-5.0 [facility] Comment on above: Performed By: #### L [id number] ####[facility] ([facility])[address] [place] [address] POCT GLUCOSE METER UNSOLICIT ED RESULTSon 08-18-2024 Glucose [Mass/Vol] 194 mg/dL High 70-[address] [facility] Comment on above: Order Comment: Waive d Testing in the ED is performed under the ED CLIA certificate #[id number]. Result Comment: [email or web address] [email or web address] Performed By: #### L [id number] ####[facility] ([facility])[address] [place] [address] Glucose [Mass/Vol] 183 mg/dL High 70-[address] [facility] Comment on above: Order Comment: Waive d Testing in the ED is performed under the ED CLIA certificate #[id number]. Result Comment: ezab [email or web address] Performed By: #### L [id number] ####[facility] ([facility])[address] [place] [address] Glucose [Mass/Vol] 173 mg/dL High 70-[address] [facility] Comment on above: Order Comment: Waive d Testing in the ED is performed under the ED CLIA certificate #[id number]. Result Comment: ezab [email or web address] Performed By: #### L [id number] ####[facility] ([facility])[address] [place] [address] Glucose [Mass/Vol] 200 mg/dL High 70-[address] [facility] Comment on above: Order Comment: Waive d Testing in the ED is performed under the ED CLIA certificate #[id number]. Result Comment: [email or web address] [email or web address] Performed By: #### L [id number] ####[facility] ([facility])[address] [place] [address] SPUTUM CULTUREon 08-18-2024 Clindamycin [Susc] <=0.5 Susceptible [facility] Comment on above: Performed By: #### L [id number] ####[facility] ([facility])[address] [place] [address] DAPTOmycin [Susc] <=[address] [facility] Comment on above: Performed By: #### L [id number] ####[facility] ([facility])[address] [place] [address] Linezolid [Susc] <=1 Susceptible [facility] Comment on above: Performed By: #### L [id number] ####[facility] ([facility])[address] [place] [address] Oxacillin [Susc] >[address] [facility] Comment on above: Performed By: #### L [id number] ####[facility] ([facility])[address] [place] [address] Tetracycline [Susc] <=0.5 Susceptible [facility] Comment on above: Performed By: #### L [id number] ####[facility] ([facility])[address] [place] [address] Trimethoprim+Sulfamethox azole [Susc] <=0.5/9.5 Susceptible [facility] Comment on above: Performed By: #### L [id number] ####[facility] ([facility])[address] [place] [address] Vancomycin [Susc] <=0.[address] [facility] Comment on above: Performed By: #### L [id number] ####[facility] ([facility])[address] [place] [address] TRIGLYCERIDESon 08-18-2024 FASTING? unknown [facility] Comment on above: Performed By: #### L [id number] ####[facility] ([facility])[address] [place] [address] Magnesium [Mass/Vol] 154 mg/dL High 40-149 [facility] Comment on above: Result Comment: TRIG LYCERIDE REFERENCE RANGE:20 YEARS AND OLDER CARDIOVASCULAR RISKLESS THAN 150 mg/dL LOW [id number] TO 199 mg/dL BORDERLINE [id number] mg/dL AND GREATER HIGH RISK Performed By: #### L [id number] ####[facility] ([facility])[address] [place] [address] 30on 08-17-2024 30 Normal [facility] ANTI-XA (HEPARIN LEVEL)on HEPARIN UNFRACTIONATED (U/ML) IN PPP BY CHROMOGENIC METHOD 0.86 IU/mL High 0.3-0.7 [facility] Comment on above: Result Comment: [place] roxaban and Apixaban will interfere with the anti Xa assay used to monitor UFH and LMWH. Performed By: #### L [id number] ####[facility] ([facility])[address] [place] [address] HEPARIN UNFRACTIONATED (U/ML) IN PPP BY CHROMOGENIC METHOD >1.00 Critically high 0.3-0.7 [facility] Comment on above: Result Comment: [place] roxaban and Apixaban will interfere with the anti Xa assay used to monitor UFH and LMWH. Performed By: #### L [id number] ####[facility] ([facility])[address] [place] [address] HEPARIN UNFRACTIONATED (U/ML) IN PPP BY CHROMOGENIC METHOD >1.00 Critically high 0.3-0.7 [facility] Comment on above: Performed By: #### L [id number] ####[facility] ([facility])[address] [place] [address] APTTon 08-17-2024 ACTIVATED PARTIAL THROMBOPLASTIN TIME IN PPP BY COAGULATION ASSAY 99.6 Seconds High 25.0-35.0 [facility] Comment on above: Result Comment: Clin ical significance of the APTT is questionable in the presence of heparin. Performed By: #### L [id number] ####[facility] ([facility])[address] [place] [address] ACTIVATED PARTIAL THROMBOPLASTIN TIME IN PPP BY COAGULATION ASSAY 98.9 Seconds High 25.0-35.0 [facility] Comment on above: Result Comment: Clin ical significance of the APTT is questionable in the presence of heparin. Performed By: #### L [id number] ####[facility] ([facility])[address] [place] [address] B-TYPE NATRIURETIC PEPTIDEon 08-17-2024 Natriuretic peptide B (Bld) [Mass/Vol] 75 pg/mL Normal 0-100 [facility] Comment on above: Performed By: #### L [id number] ####[facility] ([facility])[address] [place] [address] BASIC METABOLIC PANELon 07-22 Anion gap [Moles/Vol] 9 mmol/L Normal 7-20 [facility] Comment on above: Performed By: #### L [id number] ####[facility] ([facility])[address] [place] [address] Calcium [Mass/Vol] 8.8 mg/dL Normal 8.6-10.[address] [facility] Comment on above: Performed By: #### L [id number] ####[facility] ([facility])[address] [place] [address] Chloride [Moles/Vol] 97 mmol/L Low 98-107 [facility] Comment on above: Performed By: #### L [id number] ####[facility] ([facility])[address] [place] [address] CO2 [Moles/Vol] 45 mmol/L Critically high 21-31 [facility] Comment on above: Performed By: #### L [id number] ####[facility] ([facility])[address] [place] [address] Creatinine [Mass/Vol] 0.93 mg/dL Normal 0.70-1.30 [facility] Comment on above: Performed By: #### L [id number] ####[facility] ([facility])[address] [place] [address] GLOMERULAR FILTRATION RATE ML/MIN/1.73 SQ M.PREDICTED 91.1 mL/min/1.73m*2 Normal >60.0 [facility] Comment on above: Result Comment: [facility]???s estimated glomerular filtration rate (eGFR) will [...] of individuals. Performed By: #### L [id number] ####[facility] ([facility])[address] [place] [address] Glucose [Mass/Vol] 190 mg/dL High 70-[address] [facility] Comment on above: Performed By: #### L [id number] ####[facility] ([facility])[address] [place] [address] Potassium [Moles/Vol] 3.5 mmol/L Normal 3.5-5.1 [facility] Comment on above: Performed By: #### L [id number] ####[facility] ([facility])[address] [place] [address] Sodium [Moles/Vol] 147 mmol/L High 136-[address] [facility] Comment on above: Performed By: #### L [id number] ####[facility] ([facility])[address] [place] [address] Urea nitrogen [Mass/Vol] 28 mg/dL High 7-25 [facility] Comment on above: Performed By: #### L [id number] ####[facility] ([facility])[address] [place] [address] UREA NITROGEN/CREATININE (MASS RATIO) IN SER/PLAS 30.1 Normal [facility] Comment on above: Performed By: #### L [id number] ####[facility] ([facility])[address] [place] [address] CBC WITH AUTO DIFFERENTIALon 08-17-2024 Basophils (Bld) [#/Vol] 0.02 10*3/uL Normal 0.00-0.20 [facility] Comment on above: Performed By: #### L [id number] ####[facility] ([facility])[address] [place] [address] Basophils/100 WBC (Bld) 0.2 % Normal 0.0-1.0 [facility] Comment on above: Performed By: #### L [id number] ####[facility] (BEAKER)[address] [place] [address] Eosinophils (Bld) [#/Vol] 0.20 10*3/uL Normal 0.00-0.50 [facility] Comment on above: Performed By: #### L [id number] ####[facility] [place] [address] Eosinophils/100 WBC (Bld) 2.4 % Normal 0.0-6.0 [facility] Comment on above: Performed By: #### L [id number] ####[facility] ([facility] [place] [address] Erythrocyte distribution width (RBC) [Ratio] 15.3 % High 11.5-15.0 [facility] Comment on above: Performed By: #### L [id number] ####[facility] ([facility] [place] [address] ERYTHROCYTE MEAN CORPUSCULAR HEMOGLOBIN CONCENTRATION (G/DL) BY AUTOMATED 30.0 g/dL Low 32.0-35.0 [facility] Comment on above: Performed By: #### L [id number] ####[facility] ([facility] [place] [address] Hematocrit (Bld) [Volume fraction] 49.7 % Normal 39.0-55.0 [facility] Comment on above: Performed By: #### L [id number] ####[facility] ([facility] [place] [address] Hemoglobin (Bld) [Mass/Vol] 14.9 g/dL Normal 13.0-17.0 [facility] Comment on above: Performed By: #### L [id number] ####[facility] (BEAKER)[address] [place] [address] Immature granulocytes (Bld) [#/Vol] 0.04 10*3/uL Normal 0.00-0.20 [facility] Comment on above: Performed By: #### L [id number] ####[facility] ([facility])[address] [place] [address] Immature granulocytes/100 WBC (Bld) 0.5 % Normal 0.0-1.0 [facility] Comment on above: Performed By: #### L [id number] ####[facility] ([facility])[address] [place] [address] Lymphocytes (Bld) [#/Vol] 0.87 10*3/uL Low 1.20-4.00 [facility] Comment on above: Performed By: #### L [id number] ####[facility] ([facility])[address] [place] [address] Lymphocytes/100 WBC (Bld) 10.5 % Low 20.0-45.0 [facility] Comment on above: Performed By: #### L [id number] ####[facility] ([facility])[address] [place] [address] MCH (RBC) [Entitic mass] 29.0 pg Normal 27.0-33.0 [facility] Comment on above: Performed By: #### L [id number] ####[facility] ([facility])[address] [place] [address] MCV (RBC) [Entitic vol] 96.9 fL Normal 82.0-98.0 [facility] Comment on above: Performed By: #### L [id number] ####[facility] ([facility])[address] [place] [address] Monocytes (Bld) [#/Vol] 1.21 10*3/uL High 0.10-1.00 [facility] Comment on above: Performed By: #### L [id number] ####[facility] ([facility] [place] [address] Monocytes/100 WBC (Bld) 14.6 % High 5.0-12.0 [facility] [place] Comment on above: Performed By: #### L [id number] ####[facility] (BEAKER)[address] [place] [address] Neutrophils (Bld) [#/Vol] 5.97 10*3/uL Normal 1.60-7.60 [facility] Comment on above: Performed By: #### L [id number] ####[facility] (BEAKER)[address] [place] [address] Neutrophils/100 WBC (Bld) 71.8 % Normal 40.0-72.0 [facility] Comment on above: Performed By: #### L [id number] ####[facility] ([facility])[address] [place] [address] NRBC (PER 100 WBCS) BY AUTOMATED COUNT 0.0 % Normal 0 [facility] Comment on above: Performed By: #### L [id number] ####[facility] ([facility])[address] [place] [address] PLATELETS (10*3/UL) IN BLOOD AUTOMATED COUNT 210 10*3/uL Normal 150-400 [facility] Comment on above: Performed By: #### L [id number] ####[facility] ([facility])[address] [place] [address] RBC (Bld) [#/Vol] 5.13 10*6/uL Normal 4.20-5.70 [facility] Comment on above: Performed By: #### L [id number] ####[facility] (BEAKER)[address] [address] WBC (Bld) [#/Vol] 8.31 10*3/uL Normal 4.00-10.60 [facility] Comment on above: Performed By: #### L [id number] ####[facility] (BEAKER)[address] [place] [address] MAGNESIUMon 08-17-2024 Magnesium [Mass/Vol] 2.2 mg/dL Normal 1.9-2.7 [facility] Comment on above: Performed By: #### L [id number] ####[facility] ([facility])[address] [place] [address] Magnesium [Mass/Vol] 1.8 mg/dL Low 1.9-2.7 [facility] Comment on above: Performed By: #### L [id number] ####[facility] ([facility])[address] [place] [address] Magnesium [Mass/Vol] 1.6 mg/dL Low 1.9-2.7 [facility] Comment on above: Performed By: #### L [id number] ####[facility] ([facility])[address] [place] [address] PHOSPHORUSon 08-17-2024 Magnesium [Mass/Vol] 3.2 mg/dL Normal 2.5-5.0 [facility] Comment on above: Performed By: #### L [id number] ####[facility] ([facility])[address] [place] [address] POCT GLUCOSE METER UNSOLICIT ED RESULTSon 08-17-2024 Glucose [Mass/Vol] 184 mg/dL High 70-[address] [facility] Comment on above: Order Comment: Waive d Testing in the ED is performed under the ED CLIA certificate #[id number]. Result Comment: [email or web address] Performed By: #### L [id number] ####[facility] ([facility])[address] [place] [address] Glucose [Mass/Vol] 191 mg/dL High 70-[address] [facility] Comment on above: Order Comment: Waive d Testing in the ED is performed under the ED CLIA certificate #[id number]. Result Comment: [email or web address] Performed By: #### L [id number] ####[facility] ([facility])[address] [place] [address] POTASSIUMon 08-17-2024 Potassium [Moles/Vol] 3.8 mmol/L Normal 3.5-5.1 [facility] Comment on above: Performed By: #### L [id number] ####[facility] ([facility])[address] [place] [address] Potassium [Moles/Vol] 3.7 mmol/L Normal 3.5-5.1 [facility] Comment on above: Performed By: #### L [id number] ####[facility] (JESSIE)[address] [place] [address] PROTIME-INRon 08-17-2024 INR IN PPP BY COAGULATION ASSAY 1.19 High 0.90-1.10 [facility] Comment on above: Result Comment: [facility] P RECOMMENDED INR FOR WARFARIN THERAPY CONDITION INRPROPHYLAXIS OF VENOUS THROMBOSIS 2-3(HIGH-RISK SURGERY)TREATMENT OF VENOUS THROMBOSIS 2-3TREATMENT OF PULMONARY EMBOLISM 2-3PREVENTION OF SYSTEMIC EMBOLISM: 2-3 ACUTE MYOCARDIAL INFARCTION TISSUE HEART VALVES VALVULAR HEART DISEASE ATRIAL FIBRILLATION RECURRENT SYSTEMIC EMBOLISMMECHANICAL HEART VALVE 2.5-3.5 FROM: ORAL ANTICOAGULANTS. MECHANISM OF ACTION, CLINICAL EFFECTIVENESS, AND OPTIMAL THERAPEUTIC RANGE. CHEST 1995;108:231S-246S. Performed By: #### L [id number] ####[facility] (BEAKER)[address] [place] [address] PROTHROMBIN TIME (PT) IN PPP BY COAGULATION ASSAY 15.0 Seconds High 12.3-14.8 [facility] Comment on above: Performed By: #### L [id number] ####[facility] ([facility])[address] [place] [address] INR IN PPP BY COAGULATION ASSAY 1.19 High 0.90-1.10 [facility] Comment on above: Result Comment: [facility] P RECOMMENDED INR FOR WARFARIN THERAPY CONDITION INRPROPHYLAXIS OF VENOUS THROMBOSIS 2-3(HIGH-RISK SURGERY)TREATMENT OF VENOUS THROMBOSIS 2-3TREATMENT OF PULMONARY EMBOLISM 2-3PREVENTION OF SYSTEMIC EMBOLISM: 2-3 ACUTE MYOCARDIAL INFARCTION TISSUE HEART VALVES VALVULAR HEART DISEASE ATRIAL FIBRILLATION RECURRENT SYSTEMIC EMBOLISMMECHANICAL HEART VALVE 2.5-3.5 FROM: ORAL ANTICOAGULANTS. MECHANISM OF ACTION, CLINICAL EFFECTIVENESS, AND OPTIMAL THERAPEUTIC RANGE. CHEST 1995;108:231S-246S. Performed By: #### L [id number] ####[facility] ([employer])[address] [place] [address] PROTHROMBIN TIME (PT) IN PPP BY COAGULATION ASSAY 15.1 Seconds High 12.3-14.8 [facility] Comment on above: Performed By: #### L [id number] ####[facility] ([employer])[address] [place] [address] TRIGLYCERIDESon 08-17-2024 FASTING? Unknown Normal [facility] Comment on above: Performed By: #### L [id number] ####[facility] ([employer])[address] [place] [address] Magnesium [Mass/Vol] 119 mg/dL Normal 40-149 [facility] Comment on above: Result Comment: TRIG LYCERIDE REFERENCE RANGE:20 YEARS AND OLDER CARDIOVASCULAR RISKLESS THAN 150 mg/dL LOW [id number] TO 199 mg/dL BORDERLINE [id number] mg/dL AND GREATER HIGH RISK Performed By: #### L [id number] ####[facility] ([employer])[address] [place] [address] TROPONIN Ion 08-17-2024 Troponin I.cardiac [Mass/Vol] 0.04 ng/mL Normal 0.00-0.04 [facility] Comment on above: Performed By: #### L [id number] ####[facility] ([facility])[address] [place] [address] Troponin I.cardiac [Mass/Vol] 0.04 ng/mL Normal 0.00-0.04 [facility] Comment on above: Performed By: #### L [id number] ####[facility] ([facility])[address] [place] [address] VANCOMYCIN, TROUGHon 025 VANCOMYCIN (UG/ML) IN SER/PLAS - TROUGH 23.6 ug/mL Critically high 5.0-20.0 [facility] Comment on above: Performed By: #### L [id number] ####[facility] ([facility])[address] [place] [address] BASIC METABOLIC PANELon 07-22 Anion gap [Moles/Vol] 11 mmol/L Normal 7-20 [facility] Comment on above: Performed By: #### L [id number] ####[facility] ([facility])[address] [place] [address] Calcium [Mass/Vol] 8.9 mg/dL Normal 8.6-10.[address] [facility] Comment on above: Performed By: #### L [id number] ####[facility] ([facility])[address] [place] [address] Chloride [Moles/Vol] 99 mmol/L Normal 98-107 [facility] Comment on above: Performed By: #### L [id number] ####[facility] ([facility] [place] [address] CO2 [Moles/Vol] 38 mmol/L [facility] Comment on above: Performed By: #### L [id number] ####[facility] ([facility] [place] [address] Creatinine [Mass/Vol] 1.10 mg/dL Normal 0.70-1.30 [facility] Comment on above: Performed By: #### L [id number] ####[facility] ([facility])[address] [place] [address] GLOMERULAR FILTRATION RATE ML/MIN/1.73 SQ M.PREDICTED 74.5 mL/min/1.73m*2 Normal >60.0 [facility] Comment on above: Result Comment: [facility]???s estimated glomerular filtration rate (eGFR) will [...] of individuals. Performed By: #### L [id number] ####[facility] ([facility])[address] [place] [address] Glucose [Mass/Vol] 202 mg/dL High 70-[address] [facility] Comment on above: Performed By: #### L [id number] ####[facility] ([facility])[address] [place] [address] Potassium [Moles/Vol] 3.3 mmol/L Low 3.5-5.1 [facility] Comment on above: Performed By: #### L [id number] ####[facility] ([facility])[address] [place] [address] Sodium [Moles/Vol] 145 mmol/L Normal 136-[address] [facility] Comment on above: Performed By: #### L [id number] ####[facility] ([facility])[address] [place] [address] Urea nitrogen [Mass/Vol] 38 mg/dL High 7-25 [facility] Comment on above: Performed By: #### L [id number] ####[facility] ([facility])[address] [place] [address] UREA NITROGEN/CREATININE (MASS RATIO) IN SER/PLAS 34.5 Normal [facility] Comment on above: Performed By: #### L [id number] ####[facility] (BEAKER)[address] [place] [address] CALCIUM, IONIZEDon CALCIUM IONIZED (MMOL/L) IN BLOOD Normal [facility] Comment on above: Result Comment: C^In calculable Performed By: #### C ALCIUM, IONIZED ####[facility] [id number] [place] [address] [place] CBC WITH AUTO DIFFERENTIALon 08-16-2024 Erythrocyte distribution width (RBC) [Ratio] 15.1 % High 11.5-15.0 [facility] Comment on above: Performed By: #### L [id number] ####[facility] (BEAKER)[address] [place] [address] ERYTHROCYTE MEAN CORPUSCULAR HEMOGLOBIN CONCENTRATION (G/DL) BY AUTOMATED 30.9 g/dL Low 32.0-35.0 [facility] Comment on above: Performed By: #### L [id number] ####[facility] (BEAKER)[address] [place] [address] Hematocrit (Bld) [Volume fraction] 52.1 % Normal 39.0-55.0 [facility] Comment on above: Performed By: #### L [id number] ####[facility] (BEAKER)[address] [place] [address] Hemoglobin (Bld) [Mass/Vol] 16.1 g/dL Normal 13.0-17.0 [facility] Comment on above: Performed By: #### L [id number] ####[facility] (BEAKER)[address] [place] [address] MCH (RBC) [Entitic mass] 29.4 pg Normal 27.0-33.0 [facility] Comment on above: Performed By: #### L [id number] ####[facility] ([facility]ER)[address] [place] [address] MCV (RBC) [Entitic vol] 95.1 fL Normal 82.0-98.0 [facility] [place] Comment on above: Performed By: #### L [id number] ####[facility] ([facility])[address] [place] [address] NRBC (PER 100 WBCS) BY AUTOMATED COUNT 0.0 % Normal 0 [facility] Comment on above: Performed By: #### L [id number] ####[facility] ([facility])[address] [place] [address] PLATELETS (10*3/UL) IN BLOOD AUTOMATED COUNT 243 10*3/uL Normal 150-400 [facility] Comment on above: Performed By: #### L [id number] ####[facility] ([facility])[address] [place] [address] RBC (Bld) [#/Vol] 5.48 10*6/uL Normal 4.20-5.70 [facility] Comment on above: Performed By: #### L [id number] ####[facility] ([facility])[address] [place] [address] WBC (Bld) [#/Vol] 9.57 10*3/uL Normal 4.00-10.60 [facility] Comment on above: Performed By: #### L [id number] ####[facility] ([facility])[address] [place] [address] CONSULTon 08-16-2024 CONSULT Normal [facility] CONSULT Normal [facility] CTA CHEST W IV CONTRASTon CTA CHEST W IV CONTRAST Invalid Interpretation Code [facility] MAGNESIUMon 08-16-2024 Magnesium [Mass/Vol] 1.9 mg/dL Normal 1.9-2.7 [facility] Comment on above: Performed By: #### L [id number] ####[facility] ([facility])[address] [place] [address] Magnesium [Mass/Vol] 1.7 mg/dL Low 1.9-2.7 [facility] Comment on above: Performed By: #### L [id number] ####[facility] ([facility])[address] [place] [address] MANUAL DIFFERENTIALon 2024 BASOPHILS (10*3/UL) IN BLOOD BY CALCULATION 0.02 10*3/uL Normal 0.00-0.20 [facility] Comment on above: Performed By: #### L [id number] ####[facility] ([facility])[address] [place] [address] BASOPHILS/100 LEUKOCYTES IN BLOOD BY AUTOMATED COUNT 0.2 % Normal 0.0-1.0 [facility] Comment on above: Performed By: #### L [id number] ####[facility] ([facility])[address] [place] [address] EOSINOPHILS (10*3/UL) IN BLOOD BY CALCULATION 0.10 10*3/uL Normal 0.00-0.50 [facility] Comment on above: Performed By: #### L [id number] ####[facility] ([facility])[address] [place] [address] EOSINOPHILS/100 LEUKOCYTES IN BLOOD BY AUTOMATED COUNT 1.0 % Normal 0.0-6.0 [facility] Comment on above: Performed By: #### L [id number] ####[facility] ([facility])[address] [place] [address] IMMATURE GRANULOCYTES (10*3/UL) IN BLOOD BY CALCULATION 0.06 10*3/uL Normal 0.00-0.20 [facility] Comment on above: Performed By: #### L [id number] ####[facility] ([facility])[address] [place] [address] IMMATURE GRANULOCYTES/100 LEUKOCYTES IN BLOOD BY AUTOMATED COUNT 0.6 % Normal 0.0-1.0 [facility] Comment on above: Performed By: #### L [id number] ####[facility] ([facility])[address] [place] [address] LYMPHOCYTES (10*3/UL) IN BLOOD BY CALCULATION 0.73 10*3/uL Low 1.20-4.00 [facility] Comment on above: Performed By: #### L [id number] ####[facility] ([facility])[address] [place] [address] LYMPHOCYTES/100 LEUKOCYTES IN BLOOD BY AUTOMATED COUNT 7.6 % Low 20.0-45.0 [facility] Comment on above: Performed By: #### L [id number] ####[facility] ([facility])[address] [address] MONOCYTES (10*3/UL) IN BLOOD BY CALCUATION 1.52 10*3/uL High 0.10-1.00 [facility] Comment on above: Performed By: #### L [id number] ####[facility] ([facility])[address] [place], [place] [address] MONOCYTES/100 LEUKOCYTES IN BLOOD BY AUTOMATED COUNT 15.9 % High 5.0-12.0 [facility] Comment on above: Performed By: #### L [id number] ####[facility] ([facility])[address] [address] NEUTROPHILS (10*3/UL) IN BLOOD BY CALCULATION 7.1 10*3/uL Normal 1.6-7.6 [facility] Comment on above: Performed By: #### L [id number] ####[facility] ([facility])[address] [place], [place] [address] NEUTROPHILS/100 LEUKOCYTES IN BLOOD BY AUTOMATED COUNT 74.7 % High 40.0-72.0 [facility] Comment on above: Performed By: #### L [id number] ####[facility] ([facility])[address] [place] [address] PHOSPHORUSon 08-16-2024 Magnesium [Mass/Vol] 3.8 mg/dL Normal 2.5-5.0 [facility] Comment on above: Performed By: #### L [id number] ####[facility] (BEAKER)[address] [place] [address] Magnesium [Mass/Vol] 1.8 mg/dL Low 2.5-5.0 [facility] Comment on above: Performed By: #### L [id number] ####[facility] ([facility])[address] [place] [address] POCT GLUCOSE METER UNSOLICIT ED RESULTSon 08-16-2024 Glucose [Mass/Vol] 189 mg/dL High 70-[address] [facility] Comment on above: Order Comment: Waive d Testing in the ED is performed under the ED CLIA certificate #[id number]. Result Comment: ljon es Performed By: #### L [id number] ####[facility] ([facility])[address] [place] [address] Glucose [Mass/Vol] 205 mg/dL High 70-[address] [facility] Comment on above: Order Comment: Waive d Testing in the ED is performed under the ED CLIA certificate #[id number]. Result Comment: rgil l Performed By: #### L [id number] ####[facility] ([facility])[address] [place] [address] Glucose [Mass/Vol] 200 mg/dL High 70-[address] [facility] Comment on above: Order Comment: Waive d Testing in the ED is performed under the ED CLIA certificate #[id number]. Result Comment: [email or web address] Performed By: #### L [id number] ####[facility] ([facility])[address] [place] [address] Glucose [Mass/Vol] 207 mg/dL High 70-[address] [facility] Comment on above: Order Comment: Waive d Testing in the ED is performed under the ED CLIA certificate #[id number]. Result Comment: [email or web address] er Performed By: #### L [id number] ####[facility] ([facility])[address] [place] [address] POTASSIUMon 08-16-2024 Potassium [Moles/Vol] 3.3 mmol/L Low 3.5-5.1 [facility] Comment on above: Performed By: #### L [id number] ####[facility] ([facility])[address] [place] [address] Potassium [Moles/Vol] 3.5 mmol/L Normal 3.5-5.1 [facility] Comment on above: Performed By: #### L [id number] ####[facility] (BEAKER)[address] [place] [address] POTASSIUM, WHOLE BLOODon Potassium [Moles/Vol] 3.5 mmol/L Normal 3.5-5.1 [facility] Comment on above: Performed By: #### P OTASSIUM, WHOLE BLOOD ####[facility] [id number] [place] [address] [place] SODIUM, WHOLE BLOODon 2024 SODIUM, WHOLE BLOOD Normal [facility] Comment on above: Result Comment: C^In calculable Performed By: #### S ODIUM, WHOLE BLOOD ####[facility] [id number] [place] [address] [place] TRIGLYCERIDESon 08-16-2024 FASTING? Unknown [facility] Comment on above: Performed By: #### L [id number] ####[facility] (BEAKER)[address] [place] [address] Magnesium [Mass/Vol] 243 mg/dL High 40-149 [facility] Comment on above: Result Comment: TRIG LYCERIDE REFERENCE RANGE:20 YEARS AND OLDER CARDIOVASCULAR RISKLESS THAN 150 mg/dL LOW [id number] TO 199 mg/dL BORDERLINE [id number] mg/dL AND GREATER HIGH RISK Performed By: #### L [id number] ####[facility] (BEAKER)[address] [place] [address] 30on 08-15-2024 30 Normal [facility] 30 [facility] BLOOD CULTUREon 08-15-2024 Bacteria identified Cx Nom (Bld) No growth at 5 days [facility] Comment on above: Order Comment: From a different site than #1. Performed By: #### L [id number] ####[facility] (BEAKER)[address] [place] [address] Basophils Auto (Bld) [#/Vol] on 08-15-2024 Basophils (Bld) [#/Vol] Automated basoph il count 0.0-0.1 [place] Basophils/100 WBC Auto (Bld) on 08-15-2024 Basophils/100 WBC (Bld) Automated basophil % Low 0. 2-2.0 [place] CALCIUM, IONIZEDon CALCIUM IONIZED (MMOL/L) IN BLOOD 1.23 mmol/L Normal 1.15-1.33 [facility] Comment on above: Performed By: #### C ALCIUM, IONIZED ####[facility] RESPIR[facility] [id number] [place] [address] [place] CBC WITH AUTO DIFFERENTIALon 08-15-2024 Basophils (Bld) [#/Vol] 0.01 10*3/uL Normal 0.00-0.20 [facility] Comment on above: Performed By: #### L [id number] ####[facility] (BEAKER)[address] [place] [address] Basophils/100 WBC (Bld) 0.1 % Normal 0.0-1.0 [facility] Comment on above: Performed By: #### L [id number] ####[facility] (BEAKER)[address] [place] [address] Eosinophils (Bld) [#/Vol] 0.01 10*3/uL Normal 0.00-0.50 [facility] Comment on above: Performed By: #### L [id number] ####[facility] (BEAKER)[address] [place] [address] Eosinophils/100 WBC (Bld) 0.1 % Normal 0.0-6.0 [facility] Comment on above: Performed By: #### L [id number] ####[facility] (BEAKER)[address] [place] [address] Erythrocyte distribution width (RBC) [Ratio] 15.2 % High 11.5-15.0 [facility] Comment on above: Performed By: #### L [id number] ####[facility] (BEAKER)[address] [place] [address] ERYTHROCYTE MEAN CORPUSCULAR HEMOGLOBIN CONCENTRATION (G/DL) BY AUTOMATED 33.8 g/dL Normal 32.0-35.0 [facility] Comment on above: Performed By: #### L [id number] ####[facility] (BEAKER)[address] [place] [address] Hematocrit (Bld) [Volume fraction] 47.1 % Normal 39.0-55.0 [facility] Comment on above: Performed By: #### L [id number] ####[facility] (BEAKER)[address] [place] [address] Hemoglobin (Bld) [Mass/Vol] 15.9 g/dL Normal 13.0-17.0 [facility] Comment on above: Performed By: #### L [id number] ####[facility] (BEAKER)[address] [place] [address] Immature granulocytes (Bld) [#/Vol] 0.05 10*3/uL Normal 0.00-0.20 [facility] Comment on above: Performed By: #### L [id number] ####[facility] (BEAKER)[address] [place] [address] Immature granulocytes/100 WBC (Bld) 0.7 % Normal 0.0-1.0 [facility] Comment on above: Performed By: #### L [id number] ####[facility] (BEAKER)[address] [place] [address] Lymphocytes (Bld) [#/Vol] 0.54 10*3/uL Low 1.20-4.00 [facility] Comment on above: Performed By: #### L [id number] ####[facility] (BEAKER)[address] [place] [address] Lymphocytes/100 WBC (Bld) 7.2 % Low 20.0-45.0 [facility] Comment on above: Performed By: #### L [id number] ####[facility] ([facility])[address] [place] [address] MCH (RBC) [Entitic mass] 31.8 pg Normal 27.0-33.0 [facility] Comment on above: Performed By: #### L [id number] ####[facility] [place] [address] MCV (RBC) [Entitic vol] 94.2 fL Normal 82.0-98.0 [facility] Comment on above: Performed By: #### L [id number] ####[facility] ([facility])[address] [place] [address] Monocytes (Bld) [#/Vol] 1.23 10*3/uL High 0.10-1.00 [facility] Comment on above: Performed By: #### L [id number] ####[facility] ([facility])[address] [place] [address] Monocytes/100 WBC (Bld) 16.3 % High 5.0-12.0 [facility] Comment on above: Performed By: #### L [id number] ####[facility] [place] [address] Neutrophils (Bld) [#/Vol] 5.70 10*3/uL Normal 1.60-7.60 [facility] Comment on above: Performed By: #### L [id number] ####[facility] ([facility])[address] [place] [address] Neutrophils/100 WBC (Bld) 75.6 % High 40.0-72.0 [facility] Comment on above: Performed By: #### L [id number] ####[facility] (BEAKER)[address] [place] [address] NRBC (PER 100 WBCS) BY AUTOMATED COUNT 0.3 % High 0 [facility] Comment on above: Performed By: #### L [id number] ####[facility] (BEAKER)[address] [place] [address] PLATELETS (10*3/UL) IN BLOOD AUTOMATED COUNT 237 10*3/uL Normal 150-400 [facility] Comment on above: Performed By: #### L [id number] ####[facility] (BEAKER)[address] [place] [address] RBC (Bld) [#/Vol] 5.00 10*6/uL Normal 4.20-5.70 [facility] Comment on above: Performed By: #### L [id number] ####[facility] ([facility] [place] [address] WBC (Bld) [#/Vol] 7.54 10*3/uL Normal 4.00-10.60 [facility] Comment on above: Performed By: #### L [id number] ####[facility] ([facility] [place] [address] COMPREHENSIVE METABOLIC PANE Kris 08-15-2024 Albumin [Mass/Vol] 2.9 g/dL Low 3.5-5.[address] [facility] Comment on above: Performed By: #### L [id number] ####[facility] (BEAKER)[address] [place] [address] ALP [Catalytic activity/Vol] 58 U/L Normal 34-104 [facility] Comment on above: Performed By: #### L [id number] ####[facility] (BEAKER)[address] [place] [address] ALT [Catalytic activity/Vol] 21 U/L Normal 7-52 [facility] Comment on above: Performed By: #### L [id number] ####[facility] (BEAKER)[address] [place] [address] Anion gap [Moles/Vol] 13 mmol/L Normal 7-20 [facility] Comment on above: Performed By: #### L [id number] ####[facility] (BEAKER)[address] [place] [address] AST [Catalytic activity/Vol] 29 U/L Normal 13-39 [facility] Comment on above: Performed By: #### L [id number] ####[facility] (BEAKER)[address] [place] [address] Bilirubin [Mass/Vol] 1.0 mg/dL Normal 0.3-1.0 [facility] Comment on above: Performed By: #### L [id number] ####[facility] (BEAKER)[address] [place] [address] Calcium [Mass/Vol] 8.2 mg/dL Low 8.6-10.[address] [facility] Comment on above: Performed By: #### L [id number] ####[facility] (BEAKER)[address] [place] [address] Chloride [Moles/Vol] 90 mmol/L Low 98-107 [facility] Comment on above: Performed By: #### L [id number] ####[facility] (BEAKER)[address] [place] [address] CO2 [Moles/Vol] 32 mmol/L High 21-31 [facility] Comment on above: Performed By: #### L [id number] ####[facility] (BEAKER)[address] [place] [address] Creatinine [Mass/Vol] 1.17 mg/dL Normal 0.70-1.30 [facility] Comment on above: Performed By: #### L [id number] ####[facility] (BEAKER)[address] [place] [address] GLOMERULAR FILTRATION RATE ML/MIN/1.73 SQ M.PREDICTED 69.2 mL/min/1.73m*2 Normal >60.0 [facility] Comment on above: Result Comment: [facility]???s estimated glomerular filtration rate (eGFR) will [...] of individuals. Performed By: #### L [id number] ####[facility] ([facility])[address] [place] [address] Glucose [Mass/Vol] 219 mg/dL High 70-[address] [facility] Comment on above: Performed By: #### L [id number] ####[facility] ([facility])[address] [place] [address] Potassium [Moles/Vol] 4.0 mmol/L Normal 3.5-5.1 [facility] Comment on above: Performed By: #### L [id number] ####[facility] ([facility])[address] [place] [address] Protein [Mass/Vol] 5.5 g/dL Low 6.0-8.[address] [facility] Comment on above: Performed By: #### L [id number] ####[facility] ([facility])[address] [place] [address] Sodium [Moles/Vol] 131 mmol/L Low 136-[address] [facility] Comment on above: Performed By: #### L [id number] ####[facility] ([facility])[address] [place] [address] Urea nitrogen [Mass/Vol] 42 mg/dL High 7-25 [facility] Comment on above: Performed By: #### L [id number] ####[facility] ([facility])[address] [place] [address] UREA NITROGEN/CREATININE (MASS RATIO) IN SER/PLAS 35.9 Normal [facility] Comment on above: Performed By: #### L [id number] ####[facility] ([facility])[address] [place] [address] Eosinophils/100 WBC Auto (Bl d)on 08-15-2024 Eosinophils/100 WBC (Bld) Automated eosinophil % Low 0.9-7.0 [place] Erythrocyte distribution wid th Auto (RBC) [Ratio]on 08-15-2024 Erythrocyte distribution width (RBC) [Ratio] Erythrocyte distribution width [Ratio] by Automated count High 11.0-15.0 [place] Estimated glomerular filtrat ion rate (GFR) non- Americanon 08-15-2024 GFR/1.73 sq M.predicted among non-blacks MDRD (S/P/Bld) [Vol rate/Area] Estimated glomerular filtration rate (GFR) non- Low >=60 mL/min/1.73 m 2 [place] Globulin Calc (S) [Mass/Vol] on 08-15-2024 Globulin (S) [Mass/Vol] Serum globulin measurement by calculation (mass/volume) [place] HEMOGLOBIN A1Con 08-15-2024 Glucose [Mass/Vol] 189 mg/dL Normal Univer [facility] Comment on above: Performed By: #### L [id number] ####[facility] (BEAKER)[address] [place] [address] HbA1c (Bld) [Mass fraction] 8.2 % High 4.0-6.0 [facility] Comment on above: Performed By: #### L [id number] ####[facility] (BEAKER)[address] [place] [address] HPon 08-15-2024 HP Normal [facility] Hematocrit Auto (Bld) [Volum e fraction]on 08-15-2024 Hematocrit (Bld) [Volume fraction] Hematocrit [Volume Fraction] of Blood by Automated count 42.0-54.0 [place] Hemoglobin [Mass/volume] in Bloodon 08-15-2024 Hemoglobin (Bld) [Mass/Vol] Hemoglobin [Mass/volume] in Blood 14.0-18.0 [place] LIPASEon 08-15-2024 LIPASE (U/L) IN SER/PLAS 28 U/L Normal 11-82 [facility] Comment on above: Result Comment: M-CH EMISTRY SPECIMEN MODERATELY HEMOLYZED RESULTS MAY NOT BE ACCURATE Performed By: #### L [id number] ####[facility] (BEAKER)[address] [place] [address] Laboratory - Chemistry and C hemistry - challengeon 08-15-2024 HCO3 (Bld) [Moles/Vol] 34.7 mmol/L High 22.0-26.0 [facility] Albumin [Mass/Vol] 2.6 g/dL Low 3.4-5.0 [facility] ALP [Catalytic activity/Vol] 81 U/L 46-116 [place] ALT [Catalytic activity/Vol] 37 U/L 16-63 [place] AST [Catalytic activity/Vol] 28 U/L 15-37 [place] Bilirubin [Mass/Vol] 1.2 mg/dL High 0.2-1.0 [facility] Calcium [Mass/Vol] 9.2 mg/dL 8.5-10.1 [facility] Chloride [Moles/Vol] 101 mmol/L 98-107 [facility] CO2 [Moles/Vol] 35.4 mmol/L High 21.0-32.0 [facility] Creatinine [Mass/Vol] 1.66 mg/dL High 0.70-1.30 [facility] GFR/1.73 sq M.predicted MDRD (S/P/Bld) [Vol rate/Area] 51 mL/min/{1.73_m2} Low >=60 mL/min/1.73 m 2 [place] Glucose [Mass/Vol] 268 mg/dL High 74-106 [facility] Potassium [Moles/Vol] 3.8 mmol/L 3.5-5.1 [facility] Protein [Mass/Vol] 6.3 g/dL Low 6.4-8.2 [facility] Sodium [Moles/Vol] 143 mmol/L 136-145 [facility] Urea nitrogen [Mass/Vol] 52.0 mg/dL High 7.0-18.0 [place] Urea nitrogen/Creatinine [Mass ratio] 31.3 mg/mg [place] Laboratory - Hematology and Cell countson 08-15-2024 Immature granulocytes/100 WBC (Bld) 0.8 % High 0.0-0.5 [place] Leukocytes [#/volume] correc beatris for nucleated erythrocytes in Blood by Automated counon 08-15-2024 WBC corrected for nucl RBC Auto (Bld) [#/Vol] Leukocytes [#/volume] corrected for nucleated erythrocytes in Blood by Automated coun 4.0-11.0 [place] Lymphocytes Auto (Bld) [#/Vo l]on 08-15-2024 Lymphocytes (Bld) [#/Vol] Lymphocytes [#/volume] in Blood by Automated count Low 1.2-3.8 [place] Lymphocytes/100 WBC Auto (Bl d)on 08-15-2024 Lymphocytes/100 WBC (Bld) Lymphocytes/100 leukocytes in Blood by Automated count Low 20.5-60.0 [place] MAGNESIUMon 08-15-2024 Magnesium [Mass/Vol] 1.6 mg/dL Low 1.9-2.7 [facility] Comment on above: Performed By: #### L [id number] ####[facility] (BEAKER)[address] [place] [address] MCH Auto (RBC) [Entitic mass ]on 08-15-2024 MCH (RBC) [Entitic mass] MCH [Entitic ma ss] by Automated count 25.9-34.0 [place] MCHC Auto (RBC) [Mass/Vol]on 08-15-2024 MCHC (RBC) [Mass/Vol] MCHC [Mass/volume] by Automated count 29.9-35.2 [place] MCV Auto (RBC) [Entitic vol] on 08-15-2024 MCV (RBC) [Entitic vol] MCV [Entitic vol ume] by Automated count 80.0-94.0 [place] MRSA/MSSA DNA NASALon 2024 MRSA DNA Negative Normal Negative [facility] Comment on above: Order Comment: Testi [...] preclude nasal colonization. Performed By: #### L [id number] ####[facility] (BEAKER)[address] [place] [address] MSSA DNA Negative Normal Negative [facility] Comment on above: Order Comment: Hangi ng methodology is an automated qualitative in [...] preclude nasal colonization. Performed By: #### L [id number] ####[facility] (BEAKER)[address] [place] [address] Monocytes Auto (Bld) [#/Vol] on 08-15-2024 Monocytes (Bld) [#/Vol] Automated blood monocyte count 0.3-0.8 [place] Monocytes/100 WBC Auto (Bld) on 08-15-2024 Monocytes/100 WBC (Bld) Automated monocyte % 1. 7-12.0 [place] Neutrophils Auto (Bld) [#/Vo l]on 08-15-2024 Neutrophils (Bld) [#/Vol] Neutrophils [#/volume] in Blood by Automated count 1.4-6.5 [place] Neutrophils/100 WBC Auto (Bl d)on 08-15-2024 Neutrophils/100 WBC (Bld) Automated neutrophil % High 43.0-75.0 [place] No Panel Informationon 08-15 Avinash Test Positive POSITIVE [place] Arterial Blood Base Excess 11.0 mmol/L High <2.0-2.0 [place] Arterial Blood Oxygen Saturation 97.0 % [place] Arterial Blood Partial Pressure CO2 47.8 mm[Hg] High 35.0-45.0 [place] Arterial Blood Partial Pressure O2 81.0 mm[Hg] 80.0-100.0 [place] Arterial Blood pH 7.469 High 7.350-7.450 [facility] Blood Gas PEEP 8 [place] Blood Gas Sample Site RIGHT RADIAL F [facility] Blood Gas Set Respiration Rate 22 [place] Blood Gas Tidal Volume 600 [facility] Blood Gas Ventilator Mode AC/VC [place] FiO2 90 % [place] Oxygen Delivery Device VENT [facility] Reference Lab Test #2 Result 13.8 [place] Eosinophils # (Auto) 0.0 10 3/uL 0.0-0.7 [facility] Immature Granulocyte # (Auto) 0.06 10 3/uL High 0.00-0.03 [place] PHOSPHORUSon 08-15-2024 Magnesium [Mass/Vol] 2.7 mg/dL Normal 2.5-5.0 [facility] Comment on above: Performed By: #### L [id number] ####[facility] ([employer])[address] [place] [address] POCT GLUCOSE METER UNSOLICIT ED RESULTSon 08-15-2024 Glucose [Mass/Vol] 249 mg/dL High 70-[address] [facility] Comment on above: Order Comment: Waive d Testing in the ED is performed under the ED CLIA certificate #[id number]. Result Comment: oyod er Performed By: #### L [id number] ####[facility] ([employer])[address] [facility] [place] [address] Glucose [Mass/Vol] 217 mg/dL High 70-[address] [facility] Comment on above: Order Comment: Waive d Testing in the ED is performed under the ED CLIA certificate #[id number]. Result Comment: elena [email or web address] Performed By: #### L [id number] ####[facility] ([employer])[address] [place] [address] Glucose [Mass/Vol] 233 mg/dL High 70-[address] [facility] Comment on above: Order Comment: Waive d Testing in the ED is performed under the ED CLIA certificate #[id number]. Result Comment: elena [email or web address] Performed By: #### L [id number] ####[facility] ([employer])[address] [place] [address] POTASSIUM, WHOLE BLOODon Potassium [Moles/Vol] 3.4 mmol/L Low 3.5-5.1 Uni [facility] Comment on above: Performed By: #### P OTASSIUM, WHOLE BLOOD ####[facility] [id number] [place] [address] [facility] Platelet mean volume Auto (B ld) [Entitic vol]on 08-15-2024 Platelet mean volume (Bld) [Entitic vol] Platelet mean volume [Entitic volume] in Blood by Automated count 9.5-13.5 [place] Platelets Auto (Bld) [#/Vol] on 08-15-2024 Platelets (Bld) [#/Vol] Platelets [#/vol ume] in Blood by Automated count 150-450 [place] RBC Auto (Bld) [#/Vol]on RBC (Bld) [#/Vol] Erythrocytes [#/volume] in Blood by Automated count 4.70-6.10 [place] SODIUM, WHOLE BLOODon 2024 SODIUM, WHOLE BLOOD 136 Normal 136-145 [facility] Comment on above: Performed By: #### S ODIUM, WHOLE BLOOD ####[facility] [id number] [place] [address] [facility] Serum or plasma albumin/glob ulin mass ratioon 08-15-2024 Albumin/Globulin [Mass ratio] Serum or plasma albumin/globulin mass ratio [place] Serum or plasma anion gap de terminationon 08-15-2024 Anion gap [Moles/Vol] Serum or plasma an ion gap determination [place] TRIGLYCERIDESon 08-15-2024 FASTING? unknown Normal [facility] Comment on above: Order Comment: Monit or triglycerides while patient is on propofol. Consult Nutrition if greater than 500 mg/dL. Performed By: #### L [id number] ####[facility] (BEAKER)[address] [place] [address] Magnesium [Mass/Vol] 3920 mg/dL High 40-149 [facility] Comment on above: Order Comment: Monit or triglycerides while patient is on propofol. Consult Nutrition if greater than 500 mg/dL. Result Comment: TRIG LYCERIDE REFERENCE RANGE:20 YEARS AND OLDER CARDIOVASCULAR RISKLESS THAN 150 mg/dL LOW NAQU489 TO 199 mg/dL BORDERLINE UXNS096 mg/dL AND GREATER HIGH RISK Performed By: #### L [id number] ####[facility] ([facility])[address] [facility] [place] [address] TROPONIN Ion 08-15-2024 Troponin I.cardiac [Mass/Vol] 0.04 ng/mL Normal 0.00-0.04 [facility] Comment on above: Performed By: #### L [id number] ####[facility] ([facility])[address] [place] [address] URINALYSIS WITH MICROSCOPICo n 08-15-2024 BILIRUBIN, TOTAL PRESENCE IN URINE Negative Normal Negative [facility] Comment on above: Performed By: #### L [id number] ####[facility] ([facility])[address] [place] [place] [address] Clarity (U) Clear Normal Clear [facility] Comment on above: Performed By: #### L [id number] ####[facility] ([facility])[address] [place] [place] [address] Color (U) Colorless Normal Colorless, Yellow, Light-Yello w [facility] Comment on above: Performed By: #### L [id number] ####[facility] ([facility])[address] [place] [address] GLUCOSE (MG/DL) IN URINE Normal Normal Normal [facility] Comment on above: Performed By: #### L [id number] ####[facility] ([facility])[address] [facility] [place] [address] HEMOGLOBIN PRESENCE IN URINE Small Abnormal Negative [facility] Comment on above: Performed By: #### L [id number] ####[facility] ([facility])[address] [facility] [place] [address] Ketones Ql (U) Negative Normal Negative [facility] Comment on above: Performed By: #### L [id number] ####[facility] ([facility])[address] [facility] [place] [address] LEUKOCYTE ESTERASE PRESENCE IN URINE BY TEST STRIP Negative Normal Negative [facility] Comment on above: Performed By: #### L [id number] ####[facility] (BEAKER)[address] [place] [address] MUCUS (#/LPF) IN URINE SEDIMENT Occasional Normal None Seen, Occasional, Few [facility] Comment on above: Performed By: #### L [id number] ####[facility] (BEAKER)[address] [place] [address] NITRITE PRESENCE IN URINE Negative Normal Negative [facility] Comment on above: Performed By: #### L [id number] ####[facility] (BEAKER)[address] [place] [address] pH (U) 5.5 [pH] Normal 5.0-8.0 [facility] Comment on above: Performed By: #### L [id number] ####[facility] (BEAKER)[address] [place] [address] Protein (U) [Mass/Vol] Negative Normal [facility] Comment on above: Performed By: #### L [id number] ####[facility] (BEAKER)[address] [place] [address] RBC (#/HPF) IN URINE SEDIMENT 11-20 Abnormal None Seen, 0-2 [facility] Comment on above: Performed By: #### L [id number] ####[facility] (BEAKER)[address] [place] [address] Specific gravity (U) [Rel density] 1.011 Normal 1.010-1.030 [facility] Comment on above: Performed By: #### L [id number] ####[facility] (BEAKER)[address] [place] [address] SQUAMOUS EPITHELIAL CELLS (#/LPF) IN URINE SEDIMENT None Seen Normal None Seen, Occasional, Few [facility] Comment on above: Performed By: #### L [id number] ####[facility] (BEAKER)[address] [place] [address] UROBILINOGEN (MG/DL) IN URINE Normal Normal Normal [facility] Comment on above: Performed By: #### L [id number] ####[facility] (BEAKER)[address] [place] [address] WBC (LEUKOCYTE) (#/HPF) IN URINE SEDIMENT 3-5 Abnormal None Seen, 0-2 [facility] Comment on above: Performed By: #### L [id number] ####[facility] (BEAKER)[address] [place] [address] Basophils Auto (Bld) [#/Vol] on 08-14-2024 Basophils (Bld) [#/Vol] Automated basoph il count 0.0-0.1 [place] Basophils/100 WBC Auto (Bld) on 08-14-2024 Basophils/100 WBC (Bld) Automated basophil % 0. 2-2.0 [place] Eosinophils/100 WBC Auto (Bl d)on 08-14-2024 Eosinophils/100 WBC (Bld) Automated eosinophil % Low 0.9-7.0 [place] Erythrocyte distribution wid th Auto (RBC) [Ratio]on 08-14-2024 Erythrocyte distribution width (RBC) [Ratio] Erythrocyte distribution width [Ratio] by Automated count High 11.0-15.0 [place] Estimated glomerular filtrat ion rate (GFR) non- Americanon 08-14-2024 GFR/1.73 sq M.predicted among non-blacks MDRD (S/P/Bld) [Vol rate/Area] Estimated glomerular filtration rate (GFR) non- Low >=60 mL/min/1.73 m 2 [place] Globulin Calc (S) [Mass/Vol] on 08-14-2024 Globulin (S) [Mass/Vol] Serum globulin measurement by calculation (mass/volume) [place] Hematocrit Auto (Bld) [Volum e fraction]on 08-14-2024 Hematocrit (Bld) [Volume fraction] Hematocrit [Volume Fraction] of Blood by Automated count 42.0-54.0 [place] Hemoglobin [Mass/volume] in Bloodon 08-14-2024 Hemoglobin (Bld) [Mass/Vol] Hemoglobin [Mass/volume] in Blood 14.0-18.0 [place] Laboratory - Chemistry and C hemistry - challengeon 08-14-2024 HCO3 (Bld) [Moles/Vol] 30.8 mmol/L High 22.0-26.0 [facility] Albumin [Mass/Vol] 2.4 g/dL Low 3.4-5.0 [facility] ALP [Catalytic activity/Vol] 82 U/L 46-116 [place] ALT [Catalytic activity/Vol] 39 U/L 16-63 [place] AST [Catalytic activity/Vol] 24 U/L 15-37 [place] Bilirubin [Mass/Vol] 1.1 mg/dL High 0.2-1.0 [facility] Calcium [Mass/Vol] 8.6 mg/dL 8.5-10.1 [facility] Chloride [Moles/Vol] 102 mmol/L 98-107 [facility] CO2 [Moles/Vol] 32.4 mmol/L High 21.0-32.0 [facility] Creatinine [Mass/Vol] 1.64 mg/dL High 0.70-1.30 [facility] GFR/1.73 sq M.predicted MDRD (S/P/Bld) [Vol rate/Area] 51 mL/min/{1.73_m2} Low >=60 mL/min/1.73 m 2 [place] Glucose [Mass/Vol] 194 mg/dL High 74-106 [facility] Potassium [Moles/Vol] 3.9 mmol/L 3.5-5.1 [facility] Protein [Mass/Vol] 5.8 g/dL Low 6.4-8.2 [facility] Sodium [Moles/Vol] 140 mmol/L 136-145 [facility] Urea nitrogen [Mass/Vol] 54.0 mg/dL High 7.0-18.0 [place] Urea nitrogen/Creatinine [Mass ratio] 32.9 mg/mg [place] Laboratory - Hematology and Cell countson 08-14-2024 Immature granulocytes/100 WBC (Bld) 0.8 % High 0.0-0.5 [place] Leukocytes [#/volume] correc beatris for nucleated erythrocytes in Blood by Automated counon 08-14-2024 WBC corrected for nucl RBC Auto (Bld) [#/Vol] Leukocytes [#/volume] corrected for nucleated erythrocytes in Blood by Automated coun 4.0-11.0 [place] Lymphocytes Auto (Bld) [#/Vo l]on 08-14-2024 Lymphocytes (Bld) [#/Vol] Lymphocytes [#/volume] in Blood by Automated count Low 1.2-3.8 [place] Lymphocytes/100 WBC Auto (Bl d)on 08-14-2024 Lymphocytes/100 WBC (Bld) Lymphocytes/100 leukocytes in Blood by Automated count Low 20.5-60.0 [place] MCH Auto (RBC) [Entitic mass ]on 08-14-2024 MCH (RBC) [Entitic mass] MCH [Entitic ma ss] by Automated count 25.9-34.0 [place] MCHC Auto (RBC) [Mass/Vol]on 08-14-2024 MCHC (RBC) [Mass/Vol] MCHC [Mass/volume] by Automated count 29.9-35.2 [place] MCV Auto (RBC) [Entitic vol] on 08-14-2024 MCV (RBC) [Entitic vol] MCV [Entitic vol ume] by Automated count High 80.0-94.0 [place] Monocytes Auto (Bld) [#/Vol] on 08-14-2024 Monocytes (Bld) [#/Vol] Automated blood monocyte count 0.3-0.8 [place] Monocytes/100 WBC Auto (Bld) on 08-14-2024 Monocytes/100 WBC (Bld) Automated monocyte % 1. 7-12.0 [place] Neutrophils Auto (Bld) [#/Vo l]on 08-14-2024 Neutrophils (Bld) [#/Vol] Neutrophils [#/volume] in Blood by Automated count 1.4-6.5 [place] Neutrophils/100 WBC Auto (Bl d)on 08-14-2024 Neutrophils/100 WBC (Bld) Automated neutrophil % High 43.0-75.0 [place] No Panel Informationon 08-14 Avinash Test Positive POSITIVE [place] Arterial Blood Base Excess 6.2 mmol/L High <2.0-2.0 [place] Arterial Blood Oxygen Saturation 93.3 % [place] Arterial Blood Partial Pressure CO2 48.3 mm[Hg] High 35.0-45.0 [place] Arterial Blood Partial Pressure O2 62.0 mm[Hg] Low 80.0-100.0 [place] Arterial Blood pH 7.413 7.350-7.450 [facility] Blood Gas PEEP +8 [place] Blood Gas Sample Site RIGHT RADIAL F [facility] Blood Gas Set Respiration Rate 22 [place] Blood Gas Tidal Volume 600 Fi [facility] Blood Gas Ventilator Mode AC [place] FiO2 100 % [place] Oxygen Delivery Device VENT Fi [facility] Eosinophils # (Auto) 0.0 10 3/uL 0.0-0.7 [facility] Immature Granulocyte # (Auto) 0.05 10 3/uL High 0.00-0.03 [place] Platelet mean volume Auto (B ld) [Entitic vol]on 08-14-2024 Platelet mean volume (Bld) [Entitic vol] Platelet mean volume [Entitic volume] in Blood by Automated count 9.5-13.5 [place] Platelets Auto (Bld) [#/Vol] on 08-14-2024 Platelets (Bld) [#/Vol] Platelets [#/vol ume] in Blood by Automated count 150-450 [place] RBC Auto (Bld) [#/Vol]on RBC (Bld) [#/Vol] Erythrocytes [#/volume] in Blood by Automated count 4.70-6.10 [place] Serum or plasma albumin/glob ulin mass ratioon 08-14-2024 Albumin/Globulin [Mass ratio] Serum or plasma albumin/globulin mass ratio [place] Serum or plasma anion gap de terminationon 08-14-2024 Anion gap [Moles/Vol] Serum or plasma an ion gap determination [place] URINE CULTURE, ROUTINEon Bacteria identified Cx Nom (U) Urine Culture, Routine [facility] Bacteria identified Cx Nom (U) No growth [facility] Bacteria identified Cx Nom (U) Performed at: CB - [facility] Bacteria identified Cx Nom (U) [address] [place], [place] [id number] [facility] Bacteria identified Cx Nom (U) Early Childhood Special Educator: Tyron Saeed PhD, Phone: [phone] [facility] Basophils Auto (Bld) [#/Vol] on 04-08-2024 Basophils (Bld) [#/Vol] 0.1 10 3/uL 0.0-0.1 [place] Basophils/100 WBC Auto (Bld) on 04-08-2024 Basophils/100 WBC (Bld) 0.4 % 0.2-2.0 F [facility] Eosinophils/100 WBC Auto (Bl d)on 04-08-2024 Eosinophils/100 WBC (Bld) 1.7 % 0.9-7.0 [place] Erythrocyte distribution wid th Auto (RBC) [Ratio]on 04-08-2024 Erythrocyte distribution width (RBC) [Ratio] 13.9 % 11.0-15.0 [place] Estimated glomerular filtrat ion rate (GFR) non- Americanon 04-08-2024 GFR/1.73 sq M.predicted among non-blacks MDRD (S/P/Bld) [Vol rate/Area] mL/min/{1.73_m2} >=60 [place] Hematocrit Auto (Bld) [Volum e fraction]on 04-08-2024 Hematocrit (Bld) [Volume fraction] 45.1 % 42.0-54.0 [place] Hemoglobin [Mass/volume] in Bloodon 04-08-2024 Hemoglobin (Bld) [Mass/Vol] 14.7 g/dL 14.0-18.0 [place] Laboratory - Chemistry and C hemistry - challengeon 04-08-2024 Calcium [Mass/Vol] 10.6 mg/dL High 8.5-10.1 [facility] Chloride [Moles/Vol] 98 mmol/L 98-107 [facility] CO2 [Moles/Vol] 34.6 mmol/L High 21.0-32.0 [facility] Creatinine [Mass/Vol] 1.03 mg/dL 0.70-1.30 [facility] GFR/1.73 sq M.predicted MDRD (S/P/Bld) [Vol rate/Area] mL/min/{1.73_m2} >=60 [place] Glucose [Mass/Vol] 178 mg/dL High 74-106 [facility] Potassium [Moles/Vol] 4.4 mmol/L 3.5-5.1 [facility] Sodium [Moles/Vol] 135 mmol/L Low 136-145 [facility] Urea nitrogen [Mass/Vol] 16.0 mg/dL 7.0-18.0 [place] Urea nitrogen/Creatinine [Mass ratio] 15.5 mg/mg [place] [facility] - Hematology and Cell countson 04-08-2024 Immature granulocytes/100 WBC (Bld) 1.1 % High 0.0-0.5 [place] Leukocytes [#/volume] correc beatris for nucleated erythrocytes in Blood by Automated counon 04-08-2024 WBC corrected for nucl RBC Auto (Bld) [#/Vol] 13.3 10 3/uL High 4.0-11.0 [place] Lymphocytes Auto (Bld) [#/Vo l]on 04-08-2024 Lymphocytes (Bld) [#/Vol] 1.7 10 3/uL 1.2-3.8 [place] Lymphocytes/100 WBC Auto (Bl d)on 04-08-2024 Lymphocytes/100 WBC (Bld) 12.5 % Low 20.5-60.0 [place] MCH Auto (RBC) [Entitic mass ]on 04-08-2024 MCH (RBC) [Entitic mass] 31.1 pg 25.9-34.0 [place] MCHC Auto (RBC) [Mass/Vol]on 04-08-2024 MCHC (RBC) [Mass/Vol] 32.6 g/dL 29.9-35.2 [facility] MCV Auto (RBC) [Entitic vol] on 04-08-2024 MCV (RBC) [Entitic vol] 95.6 fL High 80.0-94.0 F [facility] Monocytes Auto (Bld) [#/Vol] on 04-08-2024 Monocytes (Bld) [#/Vol] 1.0 10 3/uL High 0.3-0.8 [place] Monocytes/100 WBC Auto (Bld) on 04-08-2024 Monocytes/100 WBC (Bld) 7.3 % 1.7-12.0 F [facility] Neutrophils Auto (Bld) [#/Vo l]on 04-08-2024 Neutrophils (Bld) [#/Vol] 10.3 10 3/uL High 1.4-6.5 [place] Neutrophils/100 WBC Auto (Bl d)on 04-08-2024 Neutrophils/100 WBC (Bld) 77.0 % High 43.0-75.0 [place] No Panel InformationOrdered By: Rc Curtis on 04-08-2024 Acid Fast Smear [place] [employer] Specimen Processing F [facility] Anaerobic Cult, Extended Incub [place] Tissue Culture [place] No Panel Informationon 04-08 Fungal Smear Result \R\ Fungus Stain [place] Gram Stain Result 1 \R\ Gram Stain Result [place] Miscellaneous Test Comment See comment [place] Comment on above: Specimen Source: ELENA TRT - Foot Right - Foot Rt - 604.000 Eosinophils # (Auto) 0.2 10 3/uL 0.0-0.7 [facility] Immature Granulocyte # (Auto) 0.15 10 3/uL High 0.00-0.03 [place] Platelet mean volume Auto (B ld) [Entitic vol]on 04-08-2024 Platelet mean volume (Bld) [Entitic vol] 9.8 fL 9.5-13.5 [place] Platelets Auto (Bld) [#/Vol] on 04-08-2024 Platelets (Bld) [#/Vol] 482 10 3/uL High 150-450 [place] RBC Auto (Bld) [#/Vol]on RBC (Bld) [#/Vol] 4.72 10 6/uL 4.70-6.10 [facility] Serum or plasma anion gap de terminationon 04-08-2024 Anion gap [Moles/Vol] 6.8 mmol/L [facility] ALL CBC WITH AUTO DIFFon BASOPHILS ABSOLUTE AUTO 0.1 N [facility] Basophils/100 WBC (Bld) 0.6 % 0.2 - 2.0 % [facility] Eosinophils/100 WBC (Bld) 2.1 % 0.9 - 7.0 % [facility] Erythrocyte distribution width (RBC) [Ratio] 14.0 % 11.0 - 15.0 % [facility] Hematocrit (Bld) [Volume fraction] 41.9 % Low 42.0 - 54.0 % [facility] Hemoglobin (Bld) [Mass/Vol] 13.7 g/dL Low 14.0 - 18.0 g/dL [facility] IMMATURE GRANULOCYTES ABS AUTO 0.46 High [facility] Immature granulocytes/100 WBC (Bld) 2.9 % High 0.0 - 0.5 % [facility] Interpretation and review of laboratory results Abnormal [facility] LYMPHOCYTES ABSOLUTE AUTO 2.3 [facility] Lymphocytes/100 WBC (Bld) 14.7 % Low 20.5 - 60.0 % [facility] MCH (RBC) [Entitic mass] 31.5 pg 25. 9 - 34.0 pg [facility] MCHC (RBC) [Mass/Vol] 32.7 g/dL 29.9 - 35.2 g/dL [facility] MCV (RBC) [Entitic vol] 96.3 fL High 80.0 - 94.0 fL [facility] MONOCYTES ABSOLUTE AUTO 1.2 High N [facility] Monocytes/100 WBC (Bld) 7.8 % 1.7 - 12.0 % [facility] NEUTROPHILS ABSOLUTE AUTO 11.4 High [facility] Neutrophils/100 WBC (Bld) 71.9 % 43.0 - 75.0 % [facility] Platelet mean volume (Bld) [Entitic vol] 10.2 fL 9.5 - 13.5 fL [facility] TBH EO # 0.3 [facility] TBH PLT 475 High [facility] TB RBC 4.35 Low [facility] TB WBC 15.8 High [facility] XR FOOT LT MIN 3 VIEWSon [...] by: Sukhdev PARKS Date: 2022-07-14 23:[address] [facility] GLYCOHEMOGLOBIN A1Con 2021 ADA RECOMMENDATION SEE BELOW Normal [facility] Comment on above: Result Comment: ADA RECOMMENDED LIMIT 4.0 - 6.0 ADA THERAPEUTIC TARGET < 7.0 ACTION SUGGESTED > 7.0 Performed By: #### A 1C #### [facility] [address] [place] [address] Dr. Jennifer Zamora Glucose [Mass/Vol] 212 mg/dL Normal [facility] Comment on above: Performed By: #### A 1C #### [facility] [address] [place] [address] Dr. Jennifer Zamora HbA1c (Bld) [Mass fraction] 9.0 % Critically high 4.5-6.[address] [facility] Comment on above: Performed By: #### A 1C #### [facility] [address] [place] [address] Dr. Jennifer Zamora PROF 14(COMP METB)on 022 Albumin [Mass/Vol] 3.4 g/dL Normal 3.4-5.0 [facility] Comment on above: Performed By: #### C MP #### [facility] [address] [place] [address] Dr. Jennifer Zamora Albumin/Globulin [Mass ratio] 0.9 {ratio} Normal [facility] Comment on above: Performed By: #### C MP #### [facility] [address] [place] [address] Dr. Jennifer Zamora ALP [Catalytic activity/Vol] 108 U/L Normal 46-[address] [facility] Comment on above: Performed By: #### C MP #### [facility] [address] [place] [address] Dr. Jennifer Zamora ALT [Catalytic activity/Vol] 35 U/L Normal 16-[address] [facility] Comment on above: Performed By: #### C MP #### [facility] [address] [address] [address] Jennifer Zamora Anion gap [Moles/Vol] 7.0 mmol/L Normal [facility] Comment on above: Performed By: #### C MP #### [facility] [address] [address] [address] Jennifer Zamora AST [Catalytic activity/Vol] 11 U/L Critically low 15-[address] [facility] Comment on above: Performed By: #### C MP #### [facility] [address] [address] [address] Jennifer Zamora Bilirubin [Mass/Vol] 0.7 mg/dL Normal 0.2-1.[address] [facility] Comment on above: Performed By: #### C MP #### [facility] [address] [address] [address] Jennifer Zamora Calcium [Mass/Vol] 8.9 mg/dL Normal 8.5-10.1 [facility] Comment on above: Performed By: #### C MP #### [facility] [address] [address] [address] Jennifer Zamora Chloride [Moles/Vol] 100 mmol/L Normal 98-[address] [facility] Comment on above: Performed By: #### C MP #### [facility] [address] [address] [address] Jennifer Zamora CO2 [Moles/Vol] 32.5 mmol/L Critically high 21.0-32.[address] [facility] Comment on above: Performed By: #### C MP #### [facility] [address] [address] [address] Jennifer Zamora Creatinine [Mass/Vol] 1.05 mg/dL Normal 0.70-1.[address] [facility] Comment on above: Performed By: #### C MP #### [facility] [address] [address] [address] Jennifer Zamora EGFR-AF GUAMANIAN >60 Normal >=60 [facility] Comment on above: Performed By: #### C MP #### [facility] [address] [address] [address] Jennifer aZmora EGFR-NON AF GUAMANIAN >60 Normal >=[address] [facility] Comment on above: Performed By: #### C MP #### [facility] [address] [address] [address] Jennifer Zamora Globulin (S) [Mass/Vol] 3.7 g/dL Normal [facility] Comment on above: Performed By: #### C MP #### [facility] [address] [address] [address] Jennifer Zamora Glucose [Mass/Vol] 175 mg/dL Critically high 74-106 [facility] Comment on above: Performed By: #### C MP #### [facility] [address] [address] [address] Jennifer Zamora Potassium [Moles/Vol] 4.5 mmol/L Normal 3.5-5.[address] [facility] Comment on above: Performed By: #### C MP #### [facility] [address] [address] [address] Jennifer Zamora Protein [Mass/Vol] 7.1 g/dL Normal 6.4-8.2 [facility] Comment on above: Performed By: #### C MP #### [facility] [address] [address] [address] Jennifer Zamora Sodium [Moles/Vol] 135 mmol/L Critically low 136-145 [facility] Comment on above: Performed By: #### C MP #### [facility] [address] [address] [address] Jennifer Zamora Urea nitrogen [Mass/Vol] 18.0 mg/dL Normal 7.0-18.[address] [facility] Comment on above: Performed By: #### C MP #### [facility] [address] [address] [address] Jennifer Zamora Urea nitrogen/Creatinine [Mass ratio] 17.1 mg/mg Normal [facility] Comment on above: Performed By: #### C MP #### [facility] [address] [address] [address] Jennifer Zamora Vital Signs Date Time Vital Sign Value Performing Clinician Keyona bobo 02-01-2025 14:090400 Body height 180.34 cm Dara Eisenberg APRN Work Phone: [place] 02-01-2025 14:09-0400 Body mass index (BMI) [Ratio] 41.7 kg/m2 Dara Eisenberg CASE RESOURCE MANAGER Work Phone: [place] 02-01-2025 14:09-0400 Body temperature 96.5 [degF] Dara Eisenberg APRN Work Phone: [place] 02-01-2025 14:09-0400 Body weight 135.62 kg Dara Eisenberg CASE RESOURCE MANAGER Work Phone: [place] 02-01-2025 14:09-0400 Diastolic blood pressure 68 mm[Hg] Dara Eisenberg APRN Work Phone: [place] 02-01-2025 14:09-0400 Heart rate 102 /min Dara Eisenberg CASE RESOURCE MANAGER Work Phone: [place] 02-01-2025 14:09-0400 SaO2% (BldA) [Mass fraction] 96 % Dara Eisneberg CASE RESOURCE MANAGER Work Phone: [place] 02-01-2025 14:09-0400 Systolic blood pressure 114 mm[Hg] Dara Eisenberg APRN Work Phone: [place] 11-05-2024 10:0400 Body height 180.34 cm [facility] 11-05-2024 10:26-0400 Body mass index (BMI) [Ratio] 44.7 kg/m2 [place] 11-05-2024 [id number]:[id number] Body weight 145.6 kg [facility] 11-05-2024 10:26-0400 Diastolic blood pressure 68 mm[Hg] [place] 11-05-2024 10:26-0400 Heart rate 98 /min [facility] 11-05-2024 10:26-0400 Respiratory rate 14 /min [facility] 11-05-2024 10:26-0400 SaO2% (BldA) [Mass fraction] 90 % [place] 11-05-2024 10:26-0400 Systolic blood pressure 128 mm[Hg] [place] 05-03-2024 14:14-0400 Body height 180.34 cm ROWDY Eisenberg Work Phone: [place] 05-03-2024 14:14-0400 Body mass index (BMI) [Ratio] 39.3 kg/m2 ROWDY Eisenberg Work Phone: [place] 05-03-2024 14:14-0400 Body temperature 96.9 [degF] ROWDY Eisenberg Work Phone: [place] 05-03-2024 14:14-0400 Body weight 128 kg ROWDY Eisenberg Work Phone: [place] 05-03-2024 14:14-0400 Diastolic blood pressure 86 mm[Hg] ROWDY Eisenberg Work Phone: [place] 05-03-2024 14:14-0400 Heart rate 108 /min ROWDY Eisenberg Work Phone: [place] 05-03-2024 14:14-0400 SaO2% (BldA) [Mass fraction] 92 % CASE RESOURCE MANAGERFauzia Eisenberg Work Phone: [place] 05-03-2024 14:14-0400 Systolic blood pressure 142 mm[Hg] ROWDY Eisenberg Work Phone: [place] 04-05-2024 13:44-0400 Body height 180.34 cm CARLOS Curtis Work Phone: [place] 04-05-2024 13:44-0400 Body mass index (BMI) [Ratio] 39.6 kg/m2 DPShantell Curtis Work Phone: [place] 04-05-2024 13:44-0400 Body temperature 97.4 [degF] DP Rc Curtis Work Phone: [place] 04-05-2024 13:44-0400 Body weight 128.82 kg DP Rc Curtis Work Phone: [place] 04-05-2024 13:44-0400 Diastolic blood pressure 70 mm[Hg] DP Rc Curtis Work Phone: [place] 04-05-2024 13:44-0400 Heart rate 61 /min DP Rc Curtis Work Phone: [place] 04-05-2024 13:44-0400 SaO2% (BldA) [Mass fraction] 87 % DP Rc Curtis Work Phone: [place] 04-05-2024 13:44-0400 Systolic blood pressure 134 mm[Hg] DP Rc Curtis Work Phone: [place] Encounters Encounter Date Encounter Type Care Provider Facility Start: 04-05-2025 End: 04-05-2025 ambulatory Dara Eisenberg APRN Work Phone: [facility] Work Phone: Start: 04-05-2025 End: 04-05-2025 Departed Referred Coco Starr MD -[facility] Start: 04-05-2025 Non-patient / Non-visit Erendira Richard MD -[facility] Work Phone: Start: 02-15-2025 ambulatory ACNP Helen Rand lity:[facility] Start: 02-01-2025 End: 02-01-2025 ambulatory Dara Eisenberg APRN Work Phone: [facility] Work Phone: Start: 02-01-2025 End: 02-01-2025 Patient encounter procedure Dara Eisenberg APRN [facility] Work Phone: Start: 01-27-2025 Non-patient / Non-visit Angelic Blevins [facility] [facility] [facility] Work Phone: Start: 01-24-2025 End: 01-26-2025 Evaluation and management of inpatient Ghassan Ding Facility:[facility] Start: 01-24-2025 Emergency department patient visit Manuel Fletcher Facility:[facility] Start: 11-05-2024 End: 11-05-2024 ambulatory [facility] Work Phone: Start: 11-05-2024 End: 11-05-2024 Patient encounter procedure [facility] Work Phone: Start: 08-29-2024 Evaluation and management of inpatient MERRILL SAFI [facility] Start: 08-26-2024 Evaluation and management of inpatient BILL HORANI [facility] Start: 08-24-2024 Evaluation and management of inpatient PALOMO CADENCE [facility] Start: 08-24-2024 Evaluation and management of inpatient PALOMO CADENCE [facility] Start: 08-21-2024 Evaluation and management of inpatient RUDY [facility] Start: 08-21-2024 Evaluation and management of inpatient RUDY [facility] Start: 08-20-2024 Evaluation and management of inpatient RUDY [facility] Start: 08-20-2024 Evaluation and management of inpatient RUDY [facility] Start: 08-19-2024 Evaluation and management of inpatient RUDY [facility] Start: 08-17-2024 Evaluation and management of inpatient RUDY [facility] Start: 08-16-2024 Evaluation and management of inpatient RUDY [facility] Start: 08-16-2024 Evaluation and management of inpatient RUDY MAN [facility] Start: 08-15-2024 Evaluation and management of inpatient HUGO PRAJAPATI [facility] Start: 08-15-2024 End: 09-09-2024 Evaluation and management of inpatient SHAIKH MONO [facility] Start: 08-15-2024 Non-patient / Non-visit [facility] Work Phone: Start: 08-14-2024 Non-patient / Non-visit [facility] Work Phone: Start: 08-10-2024 End: 08-12-2024 Clinisync Result Encounter Shaikh Mono JARRETT Work Phone: [facility] Unsolicited Start: 08-10-2024 End: 08-12-2024 Clinisync Result Encounter Shaikh Mono JARRETT Work Phone: [facility] Unsolicited Start: 05-03-2024 End: 05-03-2024 ambulatory CASE RESOURCE MANAGERFauzia Eisenberg Work Phone: [facility] Work Phone: Start: 05-03-2024 End: 05-03-2024 Patient encounter procedure ROWDY Eisenberg Work Phone: [facility] Work Phone: Start: 04-12-2024 End: 04-12-2024 ambulatory CASE RESOURCE MANAGERFauzia Eisenberg Work Phone: [facility] Work Phone: Start: 04-12-2024 End: 04-12-2024 Patient encounter procedure ROWDY Eisenberg Work Phone: [facility] Work Phone: Start: 04-08-2024 End: 04-08-2024 ambulatory CASE RESOURCE MANAGERFauzia Eisenberg Work Phone: [facility] Work Phone: Start: 04-08-2024 End: 04-08-2024 Departed Referred CASE RESOURCE MANAGER Dara Faina Work Phone: [facility] Start: 04-08-2024 Non-patient / Non-visit CASE RESOURCE MANAGERFauzia Eisenberg Work Phone: [facility] Work Phone: Start: 04-05-2024 End: 04-05-2024 Clinisync Result Encounter Shaikh Mono JARRETT Work Phone: [facility] Unsolicited Start: 04-05-2024 End: 04-05-2024 Clinisync Result Encounter Shaikh Mono JARRETT Work Phone: [facility] Unsolicited Start: 04-05-2024 End: 04-05-2024 ambulatory DPM Rc Kirsten Work Phone: [facility] Work Phone: Start: 04-05-2024 End: 04-05-2024 Patient encounter procedure DPM Rc Kirsten Work Phone: [facility] Work Phone: Start: 03-29-2024 End: 03-29-2024 ambulatory DPM Rc Curtis Work Phone: [facility] Work Phone: Start: 03-29-2024 End: 03-29-2024 Departed Referred DPM Rc Alstonesperanza Work Phone: [facility] Start: 01-26-2024 Non-patient / Non-visit DPM Rc Curtis Work Phone: [facility] Work Phone: Start: 07-14-2022 End: 07-15-[address] EDELMIRA SANTILLAN Facility:[facility] Start: 05-13-2022 End: 05-14-[address] MADELEINE MARCELINO Facility:[facility] Procedures Date Procedure Procedure Detail Performing Clinician Start: 08-10-2024 Bacteria identified in Urine by Culture Shaikh Mono JARRETT Work Phone: Start: 04-08-2024 Acid Fast Smear CASE RESOURCE MANAGER Elmer williamsontaylor Faina Work Phone: Start: 04-08-2024 AFB Specimen Processing CASE RESOURCE MANAGER Dara Eisenberg Work Phone: Start: 04-08-2024 Anaerobic Cult, Extended Incub CASE RESOURCE MANAGER Dara Eisenberg Work Phone: Start: 04-08-2024 Tissue Culture CASE RESOURCE MANAGER Kristel Eisenberg Work Phone: Start: 04-05-2024 ALL CBC WITH AUTO DIFF Shaikh Mono JARRETT Work Phone: History of amputatio n of foot Status post partial amputation of right foot History of amputatio n of foot Status post partial amputation of right foot Dara Eisenberg APRN DIRECTOR OF CONSUMER AFFAIRS History of amputatio n of foot Status post partial amputation of right foot Dara Eisenberg APRN [employer] OF [employer] Plan of Treatment Date Care Activity Detail Author Start: 04-05-2025 Urine culture [place] Start: 04-05-2025 Bacteria identified in Urine by Culture Urine Culture [place] Start: 04-08-2024 Acid Fast Culture Acid Fast Culture [facility] Payers Date Payer Category Payer Self-pay 2025 Private Health Insurance [id number] 2024 Medicare [id number] 1961 Self-pay [id number] 1961 Unknown [id number] 21 1959 Unknown [id number] 1958 Unknown [id number] 1958 Unknown [id number] .593 1958 Unknown [id number] .727 1958 Unknown [id number] [id number] .727 1958 Unknown [id number] .727 1958 Unknown [id number] [id number] .72 1958 Unknown [id number] [id number] .727 1958 Unknown [id number] [id number] .72 1958 Unknown [id number] [id number] .72 1958 Unknown [id number] [id number] .72 1958 Unknown [id number] [id number] .727 Medicare [employer] [employer] [id number] Private Health Insurance [facility] [id number] Unknown Regular Insurance [id number] Unknown [id number] Social History Date Type Detail Facility Tobacco smoking status [facility] Unknown if ever smoked [facility] Work Phone: Start: 1960 Sex Assigned At Male F [facility] Start: 04-05-2024 Tobacco smoking status NHIS Smoker (finding) [place] Tobacco smoking status NHIS Tobacco smoking consumption unknown [facility] Start: 1960 Sex assigned at Not on file [facility] Gender identity Not on file [facility] Start: 11-05-2024 Sex Male (finding) [facility] Start: 04-05-2024 Tobacco smoking status NHIS Smokes tobacco daily (finding) [place] Medical Equipment Procedure Code Equipment Code Equipment [...] Venous insufficiency (chronic) (peripheral) acute January 2:06pm [facility] Work Phone: [phone] NoteMicrobiology PROCEDURE: Blood Culture Charcoal [R1] SOURCE: Blood BODY SITE: Hand L COLLECTED DATE/TIME: 01/24/2025 17:12 EDT RECEIVED DATE/TIME: 01/24/2025 17:31 EDT START DATE/TIME: 01/24/2025 17:31 EDT FREE TEXT SOURCE: Anderle III DO, Ghassan Anderle III DO, Ghassan J. J. FINAL REPORTS Final Report [] Verified Date/Time: 01/31/2025 18:00 EDT No growth at 7 days. Performing Locations R1: This test was performed at: [facility], [address] [place] [address], [id number] [place] [address], QptksfProtestant Deaconess HospitalComment on above:Performed By: #### [id number] #### [facility] [address] [place] [address] [id number] NoteMicrobiology PROCEDURE: Blood Culture Charcoal [R1] SOURCE: Blood BODY SITE: Arm R COLLECTED DATE/TIME: 01/24/2025 17:07 EDT RECEIVED DATE/TIME: 01/24/2025 17:31 EDT START DATE/TIME: 01/24/2025 17:31 EDT FREE TEXT SOURCE: Anderle III DO, Ghassan Anderle III DO, Ghassan J. J. FINAL REPORTS Final Report [] Verified Date/Time: 01/31/2025 18:00 EDT No growth at 7 days. Performing Locations R1: This test was performed at: [place], [address] [place] [address], [id number] [place] [address], RlgwjnProtestant Deaconess HospitalComment on above:Performed By: #### [id number] #### [facility] [address] [place] [address] [id number] NotePatient Education - Text Atrial Fibrillation Atrial [...] signals of the heart. ??? An ambulatory quality assurance monitor final to record your heart's activity for a [...] warning signs of a (more content not included)...[facility]07-09-2025 NoteDischarge Summary Admission and Discharge Information Admit [...] dependent type 2 diabetes mellitus, 01/24/2025 intermediate frame tender (current) use of insulin, 01/24/2025 Medical problem [...] poor historian, and obesity who presented to [facility] on 01/24/2025 with chief complaint of [...] control regimen. Patient wasinsistent on trying an qqic-vpa-dmyqxtm supplement that he stated would cure diabetes [...] his wounds and recommended continued follow-up with [place] [facility] where he receives care. Patient successfully passed a voiding trial and was voiding easily after removalof [place]. Creatinine had improved from 1.4-0.8 on discharge. Medically stable for discharge home on 01/26/2025. Follow-up PCP in 7 to 10 days Continued care at [place] [facility] Referral sent to Dr. Dugan in [place] for endocrinology follow-up for better glucose control. [...] Completed -- 01/24/25 20:11:27 EDT Consult to Voucher Clerk (Voucher Clerk Consult) - Ordered -- 01/24/25 20:22:00 EDT, [...] equal & normal b (more content not included)...[facility] HospitalComment on above:Result Comment: Electronically Signed By: Ghassan Ding III, DO\.br\Date and Time Signed: 01/26/25 16:13 [id number] NotePatient Education - Text Atrial Fibrillation Atrial [...] signals of the heart. ??? An ambulatory quality assurance monitor final to record your heart's activity for a [...] warning signs of a (more content not included)...[facility]07-09-2025 NoteProgress Note - Pharmacy Pharmacy to Dose Warfarin Indication for warfarin use: afib Target INR: 2-3 Hospitalist: Anderle On warfarin prior to admission? No Home [...] Plan; TBD Please contact Pharmacy at ext. [phone] if there are any questions.[facility]07-08-2025 NoteInterdisciplinary Note - OT Pt is seen for OT evaluation. AMPAC score: 16/24. Pt is agreeable only to sitting EOB, no further transfers or mobility and becomes very agitated due to BLE pain. Pt is below functional baseline for ADL performance. OT to follow for treatment. Recommending HH vs SNF at this time pending progress with treatment. [facility]07-08-2025 NoteProgress Note-Physician Assessment/Plan 01/25 - WBC count [...] Orders Initial Hospital Care/Day Moderate 55 Minutes 40582 Sbsq Hospital Care/Day Moderate 35 Minutes 53232 2. Cellulitis of leg (L03.119: Cellulitis of [...] Monitoring on telemetry. Patient noncompliant with anticoagulation. ABL3LC1-MABi score is 4. Reports that Eliquis dose [...] despite clear documentation from previous admission in [place] in August 2024. Reports that he stopped taking all of his diabetes medications. 8. Insulin dependent type 2 diabetes mellitus (E11.9: Type 2 diabetes mellitus without complications) A1c: 12.6 BGT ACHS with sliding scale insulin as needed Lantus 30 units nightly at home. Patient noncompliant. Tolerated 20units QHS 01/24, uptitrate to 30 units today. Goal glucose will be less than 180. shelter (current) use of insulin (Z79.4: intermediate frame tender (current) use of insulin) Orders: acetaminophen, 975 [...] Capillary Glucose POC Cardiac Monitoring Consult to Voucher Clerk Creatine Kinase (more content not included)...[facility] HospitalComment on above:Result Comment: Electronically Signed By: Ghassan Ding III, DO.br\Date and Time Signed: 01/25/25 13:28 [id number] NoteConsultation Note Patient: TYLER SMITH Age: 64 [...] list: All Problems Smoker / SNOMED CT 949104015 / Confirmed Added secondary to documentation in Social History. Tobacco use / SNOMED CT 1656803754 / Confirmed, Active Problems (2) Smoker Tobacco [...] Last Charted Temp Oral 36.8 DegC (JAN 25 11:20) Heart Rate Monitored 88 bpm (JAN 25:26) Resp Rate 16 br/min (JAN 24 18:) SBP 97 mmHg (JAN 25 11:20) DBP 65 mmHg (JAN 25:20) Weight 126.3 kg (JAN 25 05:00) BMI [...] an outpatient with the wound center in [place].[facility] HospitalComment on above:Result Comment: Electronically Signed By: Sina Mckeon DPM.marco\Date and Time Signed: 01/25/25 12:56 [id number] NoteInterdisciplinary Note - PT PT Evaluation done this date. Pt. with on AM-PAC this date. He requires supervision to CGAx1 with all activity. Uses w/c and FWW at baseline. Recommend home with home health PT.[facility]07-08-2025 NoteProgress Note - Pharmacy Pharmacy to Dose [...] Plan; TBD Please contact Pharmacy at ext. [phone] if there are any questions.[facility]07-07-2025 NoteHistory and Physical Basic Information Admit Date/Time:01/24/2025 [...] poor historian, and obesity who presented to [facility] 01/24/[facility]25 with chief complaint of [...] would be 75 kg. Given 2 L. [place] sepsis bolus will be 2.25 L, ever, [...] specifically. He follows with Dr. 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 He denies ever seeing vascular surgery. He follows with [place] [facility]. Stated that he has not [...] ROM, Normal alignment. Ext (more content not included)...[facility] HospitalComment on above: Result Comment: Electronically Signed By: Ghassan Ding III, DO\Date and Time Signed: 01/24/25 20:28 [id number] NoteED Patient Education Note Cardiovascular Bleeding Varicose [...] at home: Medicines ??? Take and use qpge-lpu-qpxakpb and prescription medicines and creams only as [...] around your limbs and wais (morecontent not included)...[facility] 01-24-2025 NoteProgress Note-Nurse tourniquerts removed by [place]07-07-2025 NoteProgress Note - Pharmacy Pharmacy to Dose [...] Plan; TBD Please contact Pharmacy at ext. [phone] if there are any questions. Spoke with Dr. Ding - he is ordering a lovenox bridgeProtestant Deaconess Hospital07-07-2025 NoteProgress Note-Nurse derrell stopped after 4 minutes for blood cultures that are new order. puneet informed.[facility]07-07-2025 NoteProgress Note-Nurse pt reportedly wears 5 lpm at [facility]. d8id not say before. no saturating properly on at home [address]04-18-2025 Evaluation note* Diagnosis Onset Date Resolution [...] c) (peripheral) acute November 05, 2024 10:18am [facility] Work Phone: 1(431) 301-670202-20-2025 NoteUnMartins Ferry Hospital 09-09-2024 NoteUnMartins Ferry Hospital02-19-2025 NoteUnMartins Ferry Hospital02-19-2025 NoteMary[facility]-07-2024 NoteDISCHARGE PLANNING UPDATE Patient now agreeable to SNF placement. Insurance authorization submitted for [facility] in [place]. Awaiting insurance decision.[facility]02-18-2025 NoteUnMartins Ferry Hospital 09-07-2024 NoteUnMartins Ferry Hospital02-18-2025 NoteUnMartins F[facility] Hospital02-18-2025 NoteMary[facility] 09-07-2024 NoteMary[facility]02-18-2025 NoteMary[facility]02-17-2025 NoteMary[facility] 09-06-2024 NoteMary[facility]02-17-2025 NoteMary[facility]02-17-2025 NoteMary[facility] 09-05-2024 NoteMary[facility]02-16-2025 NoteMary[facility]02-15-2025 NoteMary[facility] 09-04-2024 NoteMary[facility]02-15-2025 NoteMary[facility]02-14-2025 NoteMary[facility] 09-03-2024 NoteMary[facility]02-14-2025 NoteUnMartins [facility]02-13-2025 NoteUn[facility] 09-02-2024 NoteUnMart[facility]02-13-2025 NoteUnMart[facility]02-13-2025 [facility]Un[facility] 09-01-2024 NoteDISCHARGE PLANNING UPDATE [facility] ([place], [place]) is FOC. Per their admissions team, they are submitting to insurance for authorization today, 09/01.[facility] 09-01-2024 NoteUnMartins Ferry Hospital02-12-2025 NoteUnMartins F[facility] Hospital02-11-2025 NoteUnMart[facility] 08-31-2024 NoteUnMartins [facility] Hospital02-11-2025 NoteUnMartins [facility] Hospital02-11-2025 NoteMary[facility] 08-30-2024 NoteMary[facility]02-10-2025 NoteMary[facility]02-10-2025 NoteUnMartins [facility] 08-30-2024 NoteUnMartins Ferry Hospital02-09-2025 NoteMary[facility]02-08-2025 NoteMary[facility] 08-28-2024 NoteMary[facility]02-08-2025 NoteMary[facility]02-07-2025 NoteMary[facility] 08-27-2024 NoteMary[facility]02-06-2025 NoteMary[facility]02-06-2025 NoteMary[facility] 08-26-2024 NoteMary[facility]02-06-2025 NoteUnMartins Ferry Hospital02-05-2025 NoteMary[facility] 08-25-2024 NoteMary[facility] Hospital02-05-2025 NoteMary[facility]02-05-2025 NoteMary[facility] 08-24-2024 NoteUnMartins Ferry Hospital02-04-2025 NoteUnMartins F[facility] Hospital02-04-2025 NoteUnMartins [facility] 08-24-2024 NotePatient is off unit for testing at this time.[facility]02-04-2025 NoteUnMartins Ferry Hospital02-04-2025 Note [facility]02-04-2025 NoteUnMartins Ferry Hospital02-04-2025 NoteUnMartins Ferry Hospital02-04-2025 Note [facility]02-03-2025 NoteUnMartins Ferry Hospital02-03-2025 NoteUnMartins Ferry Hospital02-02-2025 Note [facility]02-01-2025 NoteUnMartins Ferry Hospital02-01-2025 NoteUnMartins Ferry Hospital01-31-2025 Note [facility]01-31-2025 NoteUnMartins Ferry Hospital01-30-2025 NoteUnMartins Ferry Hospital01-29-2025 Note [facility]01-28-2025 NoteUnMartins Ferry Hospital01-28-2025 NoteUnMartins Ferry Hospital01-27-2025 Note [facility]01-27-2025 NoteUnMartins Ferry Hospital01-27-2025 NoteUnMartins Ferry HospitalEvaluation noteNo assessment information availableSelect Medical Specialty [facility] Work Phone: Evaluation note* Diagnosis Onset Date Resolution Status Type 2 diabetes mellitus acu te [facility] Work Phone: Evaluation note* Diagnosis Onset Date Resolution Status COPD (chronic obstructive pulmonary disease) acute Hypertension acute MRSA cellulitis of right foot acute Nicotine dependence acute Non-compliance acute Oxygen dependent acute Type 2 diabetes mellitus acu te Ulcer of right foot due to type 2 diabetes mellitus acute [facility] Work Phone: Evaluation note* Diagnosis Onset Date Resolution Status COPD (chronic obstructive pulmonary disease) acute Hypertension acute MRSA cellulitis of right foot acute Nicotine dependence acute Non-compliance acute Oxygen dependent acute Type 2 diabetes mellitus acu te Ulcer of right foot due to type 2 diabetes mellitus acute Acute osteomyelitis of foot acute [facility] Work Phone: Evaluation note* Diagnosis Onset Date Resolution Status COPD (chronic obstructive pulmonary disease) acute Hypertension acute MRSA cellulitis of right foot acute Nicotine dependence acute Non-compliance acute Oxygen dependent acute Type 2 diabetes mellitus acu te Ulcer of right foot due to type 2 diabetes mellitus acute Acute osteomyelitis of foot acute Low back pain acute [facility] Work Phone: Evaluation note* Diagnosis Onset [...] diabetes mellitus acute November 05, 2024 10:18am [facility] Work Phone: Reason for referral (narrative)No reason for referral information availableCrystal Clinic Orthopedic Center Work Phone: Summary Purpose Family History No Family History Records Found Relationship Condition Age at Onset Recorded Date/T mecca mother Malignant neoplasm of cervix Unknown Advance Directives No Advanced Directives Records Found Advance Directive Response Recorded Date/ Time Advance Directives No March 2:40pm Chief Complaint and Reason for Visit Chief Complaint Admit Date Amb Documentation January 27, 2025 8:33 am [facility] follow up February 01, 2025 2:06 pm [...] 2025 2:06pm Chief Complaint Admit Date F/U skilled nursing stay/Medications-HIGH R ISK November 05, 2024 10:18am Amb Documentation January 27, 2025 8:33 am [facility] follow up February 01, 2025 2:06 pm [...] 2024 10:18am Chief Complaint Admit Date F/U skilled nursing stay/Medications-HIGH R ISK November 05, 2024 10:18am [...] [facility] DATE CREATED AUTHOR AUTHOR'S DORCASIZ ATION 10/20/2024 [facility] DATE CREATED AUTHOR AUTHOR'S ORGANIZ ATION 01/28/2025 [facility] DATE CREATED AUTHOR AUTHOR'S ORGANIZ ATION 01/29/2025 [facility] DATE CREATED AUTHOR AUTHOR'S ORGANIZ ATION 01/30/2025 [facility] DATE CREATED AUTHOR AUTHOR'S ORGANIZ ATION 02/04/2025 [facility] DATE CREATED AUTHOR AUTHOR'S ORGANIZ ATION 04/01/2025 [facility] DATE CREATED AUTHOR AUTHOR'S ORGANIZ ATION 04/13/2025 [facility] DATE CREATED AUTHOR AUTHOR'S ORGANIZ ATION 04/23/2025 [facility] Care Teams (unrecognized sec tion and content) Team Status: Active Member Role Status Dates Magnolia Chavez LPN Attending Provider Active St art: January 26, 2024 Team Status: Inactive Member Role Status Dates Rc Curtis DPM MS Attending Provider Active Start: March 29, 2024 End: March 29, 2024 Team Status: Active Member Role Status Dates Dara Eisenberg APRN EFFICIENCY EXPERT-C Primary Care Provider Active Team Status: Inactive Member Role Status Dates Dara Eisenberg APRN EFFICIENCY EXPERT-C Primary Care Provider, Attending Provider Active Start: April 05, 2024 End: April 05, 2024 Team Status: Active Member Role Status Dates Dara Eisenberg APRN EFFICIENCY EXPERT-C Primary Care Provider, Attending Provider Active Start: April 08, 2024 Team Status: Inactive Member Role Status Dates Dara Eisenberg APRN EFFICIENCY EXPERT-C Primary Care Provider Active Start: March 212023 End: April 08, 2024 Rc Curtis DPM MS Attending Provider Active Start: April 08, 2024 End: April 08, 2024 Team Status: Inactive Member Role Status Dates Dara Eisenberg APRN EFFICIENCY EXPERT-C Primary Care Provider Active Start: March 222023 End: April 12, 2024 Navdeep Trujillo MD Attending Provider Active Sta rt: April 12, 2024 End: April 12, 2024 Team Status: Inactive Member Role Status Dates Dara Rohrbacher , CASE RESOURCE MANAGER EFFICIENCY EXPERT-C Primary Care Provider, Attending Provider Active Start: May 03, 2024 End: May 03, 2024 Team Status: Active Member Role Status Dates Dara Eisenberg APRN EFFICIENCY EXPERT-C Primary Care Provider Active Start: July Shaikh Mono MD Attending Provider Active Sta rt: August 14, 2024 Team Status: Active Member Role Status Dates Dara Eisenberg APRN EFFICIENCY EXPERT-C Primary Care Provider Active Start: July Shaikh Mono MD Attending Provider Active Sta rt: August 15, 2024 Team Status: Inactive Member Role Status Dates Dara Eisenberg APRN EFFICIENCY EXPERT-C Primary Care Provider, Attending Provider Active Start: November 05, 2024 End: November 05, 2024 Team Status: Inactive Member Role Status Dates Dara Eisenberg APRN EFFICIENCY EXPERT-C Primary Care Provider Active Start: November 05, 2024 End: November 05, 2024 Dara Eisenberg APRN EFFICIENCY EXPERT-C Attending Provider Act mook Start: November 05, 2024 End: November 05, 2024 Team Status: Active Member Role Status Dates Dara Eisenberg APRN EFFICIENCY EXPERT-C Primary Care Provider Active Start: January 27, 2025 Angelic Blevins CMA Attending Provider Active Start: January 27, 2025 Team Status: Inactive Member Role Status Dates Dara Eisenberg APRN EFFICIENCY EXPERT-C Primary Care Provider Active Start: February 01, 2025 End: February 01, 2025 Dara Eisenberg APRN EFFICIENCY EXPERT-C Attending Provider Act mook Start: February 01, 2025 End: February 01, 2025 Team Status: Active Member Role Status Dates Dara Eisenberg APRN EFFICIENCY EXPERT-C Primary Care Provider Active Start: March 212024 Coco Starr MD Attending Provider Active Sta rt: April 05, 2025 Team Status: Inactive Member Role Status Dates Coco Starr MD Attending Provider Active Sta rt: April 05, 2025 End: April 05, 2025 Team Status: Active Member Role Status Dates Dara Eisenberg APRN EFFICIENCY EXPERT-C Primary Care Provider Active Start: March 212024 [...] BE BASED ON THE PRIMARY CLINICAL RECORDS. [facility] [employer] [facility]. provides no warranty or guarantee of the accuracy or completeness of information in this document.
== END 2025-04-25 13:57 | disposition home or self-care (01) ==
LOC: WC 13:56
PROVIDERS: PCP Nurse Practitioner Family; Visit Provider Physician Assistant
DX: I87.313 Chronic venous hypertension (idiopathic) with ulcer of bilateral lower extremity (principal); L97.822 Non-pressure chronic ulcer of other part of left lower leg with fat layer exposed; L97.812 Non-pressure chronic ulcer of other part of right lower leg with fat layer exposed; E11.621 Type 2 diabetes mellitus with foot ulcer; L97.422 Non-pressure chronic ulcer of left heel and midfoot with fat layer exposed
CPT/HCPCS: 29581

== ENCOUNTER 2025-04-28 15:21 | Outpatient (OUT) | payer MEDICARE, SELFPAY | END 2025-04-28 15:22 | disposition home or self-care (01) | LOC: WC 15:23 | PROVIDERS: PCP Nurse Practitioner Family; Visit Provider Physician Assistant | DX: I87.313 Chronic venous hypertension (idiopathic) with ulcer of bilateral lower extremity (principal); L97.822 Non-pressure chronic ulcer of other part of left lower leg with fat layer exposed; L97.812 Non-pressure chronic ulcer of other part of right lower leg with fat layer exposed; L97.412 Non-pressure chronic ulcer of right heel and midfoot with fat layer exposed; E11.621 Type 2 diabetes mellitus with foot ulcer; L97.422 Non-pressure chronic ulcer of left heel and midfoot with fat layer exposed | CPT/HCPCS: 11043; 29581 ==

== ENCOUNTER 2025-05-03 13:37 | Outpatient (OUT) | payer MEDICARE, SELFPAY ==
--- OUTSIDE RECORDS SUMMARY | 2024-04-08 04:15 | XMS_ITS ---
Author Organization The [facility] in [place] Address [address] [place] [address] Care Team Providers Care Television Specialist Name Role Phone Dara Eisenberg CNP Primary Care Provider U Rc Prado Unavailable [phone] REASON FOR VISIT RT TMA Encounters Encounter Location Date Provider Diagnosis [facility] OUTPATIENT [address] [place] [address] 04/08/2024 Rc Curtis Plan Of Treatment No Information Progress Notes * Onofre SMITHDOB:1960 ([age] yo M)Acc No.[id number]:04/08/2024 UNLOCKED PROGRESS NOTE Patient: Onofre CORDERO Provider: Los Curtis DPM, MS :1960 A ge:63 Y S ex:Male Date:04/08/2024 Address:[address] [place], [place] [phone] Pcp:Dara Eisenberg CNP Check Out:12:18 PM EST * * Electronic signature of Cm Curtis DPM on 05/03/2025 at 01:43 PM EDT Sign off status: Pending Visit Status: C HK (Check Out) * Provider: Los Curtis DPM, MS Date: 0 04/08/2024 Generated for Cati ng/Leisag/eTransmitting on: 01:43 PM EDT
--- OUTSIDE RECORDS SUMMARY | 2025-04-28 11:09 | XMS_ITS | Continuity of Care Document ---
Author Organization [facility] Address [address] [place] [id number] Phone Care Team Providers Care Suspender Maker Name Role Phone Dara Eisenberg APRN Primary Care Provider Dara Eisenberg APRN Attending Provider Coco Starr MD Attending Provider Erendira Richard MD Attending Provider Angelic Blevins CMA Attending Provider [facility] Care Teams Patient Care Team Team Status: Active Member Role Status Dates Dara Eisenberg APRN BALL ASSEMBLER-C Primary Care Provider Active Visit Care Team Team Status: Inactive Member Role Status Dates Dara Eisenberg APRN BALL ASSEMBLER-C Primary Care Provider Active Start: February 01, 2025 End: February 01, 2025 Dara Eisenberg APRN BALL ASSEMBLER-C Attending Provider Act mook Start: February 01, 2025 End: February 01, 2025 Visit Care Team Team Status: Active Member Role Status Dates Dara Eisenberg APRN BALL ASSEMBLER-C Primary Care Provider Active Start: March [id number] Coco Starr MD Attending Provider Active Sta rt: April 05, 2025 Visit Care Team Team Status: Inactive Member Role Status Dates Coco Starr MD Attending Provider Active Sta rt: April 05, 2025 End: April 05, 2025 Visit Care Team Team Status: Active Member Role Status Dates Dara Eisenberg APRN BALL ASSEMBLER-C Primary Care Provider Active Start: March 212024 Erendira Richard MD Attending Provider Active Sta rt: April 06, 2025 Visit Care Team Team Status: Active Member Role Status Dates Erendira Richard MD Attending Provider Active Sta rt: April 07, 2025 Visit Care Team Team Status: Active Member Role Status Dates Erendira Richard MD Attending Provider Active Sta rt: April 08, 2025 Visit Care Team Team Status: Active Member Role Status Dates Erendira Richard MD Attending Provider Active Sta rt: April 09, 2025 Visit Care Team Team Status: Active Member Role Status Dates Erendira Richard MD Attending Provider Active Sta rt: April 12, 2025 Visit Care Team Team Status: Active Member Role Status Dates Dara Eisenberg APRN BALL ASSEMBLER-C Primary Care Provider Active Start: March 222024 Angelic Blevins CMA Attending Provider Active Start: April 13, 2025 Patient Care Team Team Status: Inactive Member Role Status Dates Dara Eisenberg APRN BALL ASSEMBLER-C Primary Care Provider Active Start: April 28, 2025 End: April 28, 2025 Dara Eisenberg APRN BALL ASSEMBLER-Bro Attending Provider Act mook Start: April 28, 2025 End: April 28, 2025 Chief Complaint and Reason for Visit Chief Complaint Admit Date 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 April 28, 2025 1:53pm Allergies, Adverse Reactions, Alerts Allergen Type Severity Reaction Last Updated Verified Status No Known Allergies Allergy Unknown April 28, 2025 2:0 4pm Yes Active Social History Smoking Status Status [...] Unknow n Active Nicotine dependence Unknown Active Type 2 diabetes mellitus with diabetic neuropath y Unknown Active Low back pain Unknown Active [...] inued 3 UNIT SUBCUT Twice daily 5.4 December 02, 2024 12:00a m December 02, 2024 2:08p m Insulin Glargine (Basaglar Kwikpen U-100 Insulin) 100 unit/mL (3 mL) insulin pen Discont inued 30 UNIT SUBCUT Twice daily 54 December 02, 2024 2:08pm December 02, 2024 2:09p m Insulin Glargine (Basaglar Kwikpen U-100 Insulin) 100 unit/mL (3 mL) insulin pen Discont inued 30 UNIT SUBCUT Every evening 27 December 02, 2024 2:09pm Octob er 2024 2:27p m cancel BID order should be q pm Albuterol Sulfate 2.5 mg /3 mL (0.083 %) solution for nebulizatio n Active 0 .ROUTE .COMPLEX 300 December 13, 2024 9:06am INHALE 1 VIAL VIA NEBULIZER EVERY 6 HOURS NEEDED Unknown Gabapentin 300 mg capsule Discont inued 600 MG PO Daily at bedtime 60 30 February 03, 2025 11:34a m Augus t 2024 11:36 am 2 caps in AM, 1 in afternoon, 2 caps in PM Atorvastati n 80 mg tablet Active 0 .ROUTE .COMPLEX 90 February 28, 2025 11:35a m TAKE 1 TABLET BY MOUTH EVERY DAY FOR 90 DAYS Unknown Furosemide 40 mg tablet Discont inued 0 .ROUTE .COMPLEX 90 February 28, 2025 11:35a m Octob er 2024 2:11p m TAKE 1 TABLET BY MOUTH EVERY DAY FOR 90 DAYS Gabapentin 300 mg capsule Discont inued 0 .ROUTE .COMPLEX 60 February 28, 2025 11:36a m Octob er 2024 2:06p m TAKE 2 CAPSULES DAILY AT BEDTIME Glipizide 5 mg tablet Discont inued 0 .ROUTE .COMPLEX 180 [facility] 2024 3:15pm [facility] 2024 4:02p m TAKE 1 TABLET BY MOUTH TWICE A DAY Glipizide 5 mg tablet Discont inued 0 .ROUTE .COMPLEX 180 [facility] 2024 4:02pm Oct er 2024 2:11p m TAKE 1 TABLET BY MOUTH TWICE A DAY Metformin 1,000 mg tablet Discont inued 1000 MG PO Daily [facility] 2023 12:00a m November 05, 2024 11:45 am Meclizine 25 mg tablet Discont inued 25 MG PO [facility] 2023 12:00a m [facility] 2023 4:22p m Glipizide 5 mg tablet Discont inued 5 MG PO Twice daily 180 90 [facility] 2023 4:31pm [facility] 2024 3:15p m Sildenafil (Viagra) 50 mg tablet Active 50 MG PO Daily as needed for sexual activity 14 30 [facility] 2023 1:00am administer 30 minutes to 4 hours before activity Unknown Quetiapine 50 mg tablet Discont inued 50 [...] Twice daily November 05, 2024 12:00a m Unknown Tramadol 50 mg tablet Discont inued 50 [...] tablet Discont inued 40 MG PO Daily 90 90 November 05, 2024 11:13a m Augus t 2024 11:36 am Atorvastati n 80 mg tablet Discont inued 80 MG PO Daily 90 90 November 05, 2024 11:38a m Augus t 2024 11:36 am Metoprolol Tartrate 50 mg tablet Discont inued 50 MG PO Twice daily 180 90 November 05, 2024 11:38a m Octob er 2024 2:06p m Quetiapine 50 mg tablet Discont inued 50 MG PO Daily 90 90 November 05, 2024 11:44a m February 01, 2025 2:34p m Gabapentin 300 mg capsule Discont inued 600 MG PO Three times daily 50 10 November 05, 2024 11:46a m February 03, 2025 11:34 am 2 caps in AM, 1 in afternoon, 2 caps in PM Apixaban 5 mg tablet Discont inued 5 MG PO Twice daily 180 November 08, 2024 12:00a m November 08, 2024 9:02a m Apixaban 5 mg tablet Active 5 MG PO Twice daily 180 November 08, 2024 9:02am Unknown Glipizide 5 mg tablet Discont inued 5 MG PO Once Septem rubén 2023 12:00a m Decem rubén 2023 4:32p m Amoxicillin -Pot Clavulanate 875-125 mg tablet Discont inued TAB PO Septem rubén 2023 12:00a m Septe mber 2023 3:18p m Insulin Detemir U-100 (Levemir Flexpen) 100 unit/mL (3 mL) insulin pen Discont inued 30 UNIT SUBCUT Daily at bedtime Septem rubén 2023 12:00a m Octob er 2023 12:11 pm Oxygen unit Active 0 .Route Septe m rubén 2023 12:00a m As directed Sulfamethox azole-Trime thoprim 800-160 mg tablet Discont inued TAB PO Twice daily Octobe r 2023 12:00a m Decem rubén 2023 4:22p m Cyclobenzap rine 10 mg tablet Discont inued 10 MG PO Daily at bedtime 30 30 Octobe r 2023 12:00a m [facility] rubén 2023 10:38 am Cephalexin 500 mg capsule Discont inued 500 MG PO Four times daily February 01, 2025 12:00a m Octob er 2024 2:05p m Warfarin 5 mg tablet Discont inued 5 MG PO Daily February 01, 2025 12:00a m Octob er 2024 2:07p m Quetiapine 100 mg tablet Discont inued 100 MG PO Daily 90 90 February 01, 2025 2:34pm Octob er 2024 2:11p m Digoxin 250 mcg (0.25 mg) tablet Discont inued 250 MCG PO Daily Octobe r 2024 12:00a m Octob er 2024 2:28p m Metoprolol Tartrate 25 mg tablet Discont inued 25 MG PO Twice daily Octobe r 2024 12:00a m Octob er 2024 2:28p m Insulin Glargine (Lantus U-100 Insulin) 100 unit/mL solution Discont inued 15 UNIT SUBCUT Twice daily Octobe r 2024 12:00a m Octob er 2024 2:28p m Metoprolol Tartrate 25 mg tablet Active 25 MG PO Twice daily 180 90 Octobe r 2024 2:24pm Complies with drug therapy Digoxin 250 mcg (0.25 mg) tablet Active 250 MCG PO Daily 90 90 Octobe r 2024 2:25pm Complies with drug therapy Insulin Glargine (Lantus U-100 Insulin) 100 unit/mL solution Discont inued 15 UNIT SUBCUT Three times daily Octobe r 2024 2:26pm Octob er 2024 2:29p m Insulin Glargine (Lantus U-100 Insulin) 100 unit/mL solution Discont inued 15 UNIT SUBCUT Three times daily 40.5 90 Octobe r 2024 2:28pm Octob er 2024 3:00p m Losartan 25 mg tablet Active 25 MG PO Daily 90 90 Octobe r 2024 12:00a m Complies with drug therapy Insulin Glargine (Lantus Solostar U-100 Insulin) 100 unit/mL (3 mL) insulin pen Active 15 UNIT SUBCUT Three times daily 15 Octobe r 2024 12:00a m cancel lantus vials Complies with drug therapy Procedures Procedure Date Performed Status Urine Culture April 05, 2025 completed Relevant Diagnostic Tests and/or Laboratory Data Laboratory Results Test Collection Date/Time Result Date/Time Result Interpretation Reference Range Result Comment Performing Site Anion Gap April 05, 2025 3:00pm April 05, 2025 3:00pm 10.7 Absolute Basophil s (Manual) April 05, 2025 3:00pm April 05, 2025 3:00pm 0.18 10 3/uL Above high normal 0.00-0.10 Hematocr it April 05, 2025 3:00pm 43.2 % 42.0-54.0 Prothrom b Time Internat ional Ratio April 05, 2025 3:00pm April 05, 2025 3:00pm 1.04 DESIRED INR:2.0-3.0 CONDITIONS NOT LISTED BELOW2.5-3. 5 FOR PROSTHETIC HEART VALVE REPLACEMENT 2.5-3.5 RECURRENT THROMBOSIS Urine Culture Reflexed April 05, 2025 4:05pm April 05, 2025 4:05pm YES[facility] Urine Microsco pic Review April 05, 2025 4:05pm YES SARS-CoV -2 Ag (CV2AG) April 05, 2025 4:05pm April 05, 2025 4:05pm NEGATIVE NEGATIVE This test has not been FDA cleared or approved, but has beenauthori zed by the FDA under an Emergency Use Authorizati on(EUA) for use by authorized laboratorie s certified underIA that meet the requirement s to perform moderate or highcomplex ity testing. This test has been authorized only forthe detection of proteins from SARS-CoV-2, not for any otherviruse s or pathogens. The emergency use of this test isauthorize d for the duration of the declaration thatcircums tances exist justifying the authorizati on ofemergency use of in vitro diagnostic tests for detectionan d/or diagnosis of Covid-19 under section 564(b)(1) of theAct, 21 U.S.C. 360bbb-3(b) (1), unless the declaration isterminate d or authorizati on is revoked sooner. Troponin I High Sensitiv ity April 05, 2025 4:18pm April 05, 2025 4:18pm 7.2 pg/mL 4.0-76.1 CUT-OFF POINTS HAVE BEEN ESTABLISHED BASED ON THE FOURTHUNIVE RSAL DEFINITION OF MYOCARDIAL INFARCTION. THE UPPERREFERE NCE LIMIT (URL) OF TROPONIN, DEFINED THE 99THPERCENT ILE OF cTnI DISTRIBUTIO N IN A REFERENCE POPULATION, HAS BEEN CONFIRMED THE DECISION THRESHOLD FOR MIDIAGNOSIS .99TH PERCENTILE = 76.2 PG/MLNOTE: HIGH-SENSIT IVITY TROPONIN ASSAY IS NOT INTENDED TO BEUSED IN ISOLATION BUT SHOULD BE INTERPRETED IN CONJUNCTION WITH OTHER DIAGNOSTIC AND CLINICAL INFORMATION . B-Type Natriure tic Peptide April 05, 2025 4:48pm April 05, 2025 4:48pm 312.0 pg/mL <=900.0 Lactic Acid Level April 05, 2025 6:18pm April 05, 2025 6:18pm 1.4 mmol/L 0.4-2.0 Magnesiu m Level April 06, 2025 5:56am April 06, 2025 5:56am 2.0 mg/dL 1.8-2.4 Anion Gap April 06, 2025 5:56am April 06, 2025 5:56am 8.4 Troponin I High Sensitiv ity April 06, 2025 5:56am April 06, 2025 5:56am 6.3 pg/mL 4.0-76.1 CUT-OFF POINTS HAVE BEEN ESTABLISHED BASED ON THE FOURTHUNIVE RSAL DEFINITION OF MYOCARDIAL INFARCTION. THE UPPERREFERE NCE LIMIT (URL) OF TROPONIN, DEFINED THE 99THPERCENT ILE OF cTnI DISTRIBUTIO N IN A REFERENCE POPULATION, HAS BEEN CONFIRMED THE DECISION THRESHOLD FOR MIDIAGNOSIS .99TH PERCENTILE = 76.2 PG/MLNOTE: HIGH-SENSIT IVITY TROPONIN ASSAY IS NOT INTENDED TO BEUSED IN ISOLATION BUT SHOULD BE INTERPRETED IN CONJUNCTION WITH OTHER DIAGNOSTIC AND CLINICAL INFORMATION . Basophil s # (Auto) April 06, 2025 5:56am April 06, 2025 5:56am 0.0 10 3/uL 0.0-0.1 Glucose Level April 06, 2025 10:00pm April 06, 2025 10:00pm 530 mg/dL Above upper panic limits 74-106 RESULTS CALLED TO ASHLEY LEÓN RN @BY Gely Bradley at 2259 Anion Gap April 07, 2025 5:35am April 07, 2025 5:35am 7.8 Hematocr it April 07, 2025 5:35am April 07, 2025 5:35am 41.1 % Below low normal 42.0-54.0 Vancomyc in Level Trough April 07, 2025 9:01am April 07, 2025 9:01am 17.2 ug/mL 5.0-20.0 Anion Gap April 08, 2025 5:22am April 08, 2025 5:22am 7.2 Hematocr it April 08, 2025 5:22am April 08, 2025 5:22am 42.3 % 42.0-54.0 C-Reacti ve Protein, Quantita tive April 09, 2025 6:22am April 09, 2025 6:22am 3.25 mg/dL Above high normal <=0.50 Anion Gap April 09, 2025 6:22am 8.0 Hematocr it April 09, 2025 6:22am April 09, 2025 6:22am 41.7 % Below low normal 42.0-54.0 Anion Gap April 12, 2025 11:04am April 12, 2025 11:04am 3.9 Hematocr it April 12, 2025 11:04am April 12, 2025 11:04am 43.4 % 42.0-54.0 Albumin/ Globulin Ratio April 05, 2025 3:00pm April 05, 2025 3:00pm 0.4 Basophil s % April 05, 2025 3:00pm April 05, 2025 3:00pm 1.0 % 0.2-2.0 Hemoglob in April 05, 2025 3:00pm 14.9 g/dL 14.0-18.0 Prothrom bin Time April 05, 2025 3:00pm April 05, 2025 3:00pm 11.0 sec 9.0-11.6 Urine Other Casts April 05, 2025 4:05pm April 05, 2025 4:05pm NONE SEEN #/LPF NONE SEEN Urine Bilirubi n April 05, 2025 4:05pm NEGATIVE NEGATIVE Albumin/ Globulin Ratio April 06, 2025 5:56am April 06, 2025 5:56am 0.3 Basophil s (%) (Auto) April 06, 2025 5:56am April 06, 2025 5:56am 0.1 % Below low normal 0.2-2.0 BUN/Crea tinine Ratio April 07, 2025 5:35am April 07, 2025 5:35am 28.2 Hemoglob in April 07, 2025 5:35am April 07, 2025 5:35am 13.5 g/dL Below low normal 14.0-18.0 BUN/Crea tinine Ratio April 08, 2025 5:22am April 08, 2025 5:22am 32.1 Hemoglob in April 08, 2025 5:22am April 08, 2025 5:22am 13.6 g/dL Below low normal 14.0-18.0 BUN/Crea tinine Ratio April 09, 2025 6:22am 22.7 Hemoglob in April 09, 2025 6:22am April 09, 2025 6:22am 13.1 g/dL Below low normal 14.0-18.0 BUN/Crea tinine Ratio April 12, 2025 11:04am April 12, 2025 11:04am 19.1 Hemoglob in April 12, 2025 11:04am April 12, 2025 11:04am 13.6 g/dL Below low normal 14.0-18.0 Albumin April 05, 2025 3:00pm April 05, 2025 3:00pm 2.1 g/dL Below low normal 3.4-5.0 Eosinoph ils # (Manual) April 05, 2025 3:00pm April 05, 2025 3:00pm 0.00 10 3/uL 0.00-0.70 Mean Corpuscu lar Hemoglob in April 05, 2025 3:00pm 31.2 pg 25.9-34.0 Urine Other Crystals April 05, 2025 4:05pm April 05, 2025 4:05pm None Seen #/HPF None Seen Urine Occult Blood April 05, 2025 4:05pm LARGE Abnormal (applies to non-numeric results) NEGATIVE Albumin April 06, 2025 5:56am April 06, 2025 5:56am 1.8 g/dL Below low normal 3.4-5.0 Eosinoph ils # (Auto) April 06, 2025 5:56am April 06, 2025 5:56am 0.0 10 3/uL 0.0-0.7 Blood Urea Nitrogen April 07, 2025 5:35am April 07, 2025 5:35am 29.0 mg/dL Above high normal 7.0-18.0 Mean Corpuscu lar Hemoglob in April 07, 2025 5:35am April 07, 2025 5:35am 30.7 pg 25.9-34.0 Blood Urea Nitrogen April 08, 2025 5:22am April 08, 2025 5:22am 26.0 mg/dL Above high normal 7.0-18.0 Mean Corpuscu lar Hemoglob in April 08, 2025 5:22am April 08, 2025 5:22am 30.9 pg 25.9-34.0 Blood Urea Nitrogen April 09, 2025 6:22am 20.0 mg/dL Above high normal 7.0-18.0 Mean Corpuscu lar Hemoglob in April 09, 2025 6:22am April 09, 2025 6:22am 30.8 pg 25.9-34.0 Blood Urea Nitrogen April 12, 2025 11:04am April 12, 2025 11:04am 17.0 mg/dL 7.0-18.0 Mean Corpuscu lar Hemoglob in April 12, 2025 11:04am April 12, 2025 11:04am 31.1 pg 25.9-34.0 Alkaline Phosphat ase April 05, 2025 3:00pm April 05, 2025 3:00pm 143 U/L Above high normal 46-116 Eosinoph ils % April 05, 2025 3:00pm April 05, 2025 3:00pm 0.0 % Below low normal 0.9-7.0 Mean Corpuscu lar Hemoglob in [facility] April 05, 2025 3:00pm 34.5 g/dL 29.9-35.2 Urine Bacteria April 05, 2025 4:05pm April 05, 2025 4:05pm MODERATE #/HPF Abnormal (applies to non-numeric results) NONE SEEN Urine Appearan ce April 05, 2025 4:05pm SL CLOUDY CLEAR Alkaline Phosphat ase April 06, 2025 5:56am April 06, 2025 5:56am 127 U/L Above high normal 46-116 Eosinoph ils (%) (Auto) April 06, 2025 5:56am April 06, 2025 5:56am 0.0 % Below low normal 0.9-7.0 Calcium Level April 07, 2025 5:35am April 07, 2025 5:35am 9.0 mg/dL 8.5-10.1 Mean Corpuscu lar Hemoglob in [facility] April 07, 2025 5:35am April 07, 2025 5:35am 32.8 g/dL 29.9-35.2 Calcium Level April 08, 2025 5:22am April 08, 2025 5:22am 9.6 mg/dL 8.5-10.1 Mean Corpuscu lar Hemoglob in [facility] April 08, 2025 5:22am April 08, 2025 5:22am 32.2 g/dL 29.9-35.2 Calcium Level April 09, 2025 6:22am 9.0 mg/dL 8.5-10.1 Mean Corpuscu lar Hemoglob in [facility] April 09, 2025 6:22am April 09, 2025 6:22am 31.4 g/dL 29.9-35.2 Calcium Level April 12, 2025 11:04am April 12, 2025 11:04am 9.8 mg/dL 8.5-10.1 Mean Corpuscu lar Hemoglob in [facility] April 12, 2025 11:04am April 12, 2025 11:04am 31.3 g/dL 29.9-35.2 Alanine Aminotra nsferase (ALT/SGP T) April 05, 2025 3:00pm April 05, 2025 3:00pm 14 U/L Below low normal 16-63 Lymphocy heather # (Manual) April 05, 2025 3:00pm April 05, 2025 3:00pm 0.74 10 3/uL Below low normal 1.20-3.80 Mean Corpuscu lar Volume April 05, 2025 3:00pm 90.4 fL 80.0-94.0 Urine Mucus April 05, 2025 4:05pm April 05, 2025 4:05pm NONE SEEN NONE SEEN Urine Color April 05, 2025 4:05pm LT. YELLOW YELLOW Alanine Aminotra nsferase (ALT/SGP T) April 06, 2025 5:56am April 06, 2025 5:56am 13 U/L Below low normal 16-63 Hematocr it April 06, 2025 5:56am April 06, 2025 5:56am 40.8 % Below low normal 42.0-54.0 Chloride Level April 07, 2025 5:35am April 07, 2025 5:35am 97 mmol/L Below low normal 98-107 Mean Corpuscu lar Volume April 07, 2025 5:35am April 07, 2025 5:35am 93.4 fL 80.0-94.0 Chloride Level April 08, 2025 5:22am April 08, 2025 5:22am 102 mmol/L 98-107 Mean Corpuscu lar Volume April 08, 2025 5:22am April 08, 2025 5:22am 96.1 fL Above high normal 80.0-94.0 Chloride Level April 09, 2025 6:22am 102 mmol/L 98-107 Mean Corpuscu lar Volume April 09, 2025 6:22am April 09, 2025 6:22am 97.9 fL Above high normal 80.0-94.0 Chloride Level April 12, 2025 11:04am April 12, 2025 11:04am 100 mmol/L 98-107 Mean Corpuscu lar Volume April 12, 2025 11:04am April 12, 2025 11:04am 99.3 fL Above high normal 80.0-94.0 Aspartat e Amino Transf (AST/SGO T) April 05, 2025 3:00pm April 05, 2025 3:00pm 11 U/L Below low normal 15-37 Lymphocy heather % April 05, 2025 3:00pm April 05, 2025 3:00pm 4.0 % Below low normal 20.5-60.0 Mean Platelet Volume April 05, 2025 3:00pm 11.8 fL 9.5-13.5 Urine RBC April 05, 2025 4:05pm April 05, 2025 4:05pm 10-20 #/HPF Abnormal (applies to non-numeric results) 0-2 Urine Glucose (UA) April 05, 2025 4:05pm >=1000 mg/dL Abnormal (applies to non-numeric results) NEGATIVE Aspartat e Amino Transf (AST/SGO T) April 06, 2025 5:56am April 06, 2025 5:56am 15 U/L 15-37 Hemoglob in April 06, 2025 5:56am April 06, 2025 5:56am 14.0 g/dL 14.0-18.0 Carbon Dioxide Level April 07, 2025 5:35am April 07, 2025 5:35am 33.8 mmol/L Above high normal 21.0-32.0 Mean Platelet Volume April 07, 2025 5:35am April 07, 2025 5:35am 11.1 fL 9.5-13.5 Carbon Dioxide Level April 08, 2025 5:22am April 08, 2025 5:22am 35.0 mmol/L Above high normal 21.0-32.0 Mean Platelet Volume April 08, 2025 5:22am April 08, 2025 5:22am 10.8 fL 9.5-13.5 Carbon Dioxide Level April 09, 2025 6:22am 33.1 mmol/L Above high normal 21.0-32.0 Mean Platelet Volume April 09, 2025 6:22am April 09, 2025 6:22am 11.0 fL 9.5-13.5 Carbon Dioxide Level April 12, 2025 11:04am April 12, 2025 11:04am 40.3 mmol/L Above high normal 21.0-32.0 Mean Platelet Volume April 12, 2025 11:04am April 12, 2025 11:04am 10.1 fL 9.5-13.5 BUN/Crea tinine Ratio April 05, 2025 3:00pm April 05, 2025 3:00pm 20.0 Monocyte s # (Manual) April 05, 2025 3:00pm April 05, 2025 3:00pm 1.30 10 3/uL Above high normal 0.30-0.80 Platelet Count April 05, 2025 3:00pm 284 10 3/uL 150-450 Urine Squamous Epitheli al Cells April 05, 2025 4:05pm April 05, 2025 4:05pm RARE #/LPF NONE/RARE Urine Ketones April 05, 2025 4:05pm NEGATIVE mg/dL NEGATIVE BUN/Crea tinine Ratio April 06, 2025 5:56am April 06, 2025 5:56am 24.8 Immature Granuloc yte # (Auto) April 06, 2025 5:56am April 06, 2025 5:56am 0.14 10 3/uL Above high normal 0.00-0.03 Creatini ne April 07, 2025 5:35am April 07, 2025 5:35am 1.03 mg/dL 0.70-1.30 Platelet Count April 07, 2025 5:35am April 07, 2025 5:35am 294 10 3/uL 150-450 Creatini ne April 08, 2025 5:22am April 08, 2025 5:22am 0.81 mg/dL 0.70-1.30 Platelet Count April 08, 2025 5:22am April 08, 2025 5:22am 306 10 3/uL 150-450 Creatini ne April 09, 2025 6:22am 0.88 mg/dL 0.70-1.30 Platelet Count April 09, 2025 6:22am April 09, 2025 6:22am 279 10 3/uL 150-450 Creatini ne April 12, 2025 11:04am April 12, 2025 11:04am 0.89 mg/dL 0.70-1.30 Platelet Count April 12, 2025 11:04am April 12, 2025 11:04am 321 10 3/uL 150-450 Blood Urea Nitrogen April 05, 2025 3:00pm April 05, 2025 3:00pm 29.0 mg/dL Above high normal 7.0-18.0 Monocyte s % April 05, 2025 3:00pm April 05, 2025 3:00pm 7.0 % 1.7-12.0 Red Blood Count April 05, 2025 3:00pm 4.78 10 6/uL 4.70-6.10 Urine WBC April 05, 2025 4:05pm April 05, 2025 4:05pm 50-75 #/HPF Abnormal (applies to non-numeric results) NONE SEEN Urine Leukocyt e Esterase April 05, 2025 4:05pm TRACE Abnormal (applies to non-numeric results) NEGATIVE Blood Urea Nitrogen April 06, 2025 5:56am April 06, 2025 5:56am 33.0 mg/dL Above high normal 7.0-18.0 Immature Granuloc yte % (Auto) April 06, 2025 5:56am April 06, 2025 5:56am 0.8 % Above high normal 0.0-0.5 Estimate d GFR ( ) April 07, 2025 5:35am April 07, 2025 5:35am >60 >=60 mL/min/1.7 3m 2 Red Blood Count April 07, 2025 5:35am April 07, 2025 5:35am 4.40 10 6/uL Below low normal 4.70-6.10 Estimate d GFR ( ) April 08, 2025 5:22am April 08, 2025 5:22am >60 >=60 mL/min/1.7 3m 2 Red Blood Count April 08, 2025 5:22am April 08, 2025 5:22am 4.40 10 6/uL Below low normal 4.70-6.10 Estimate d GFR ( ) April 09, 2025 6:22am >60 >=60 mL/min/1.7 3m 2 Red Blood Count April 09, 2025 6:22am April 09, 2025 6:22am 4.26 10 6/uL Below low normal 4.70-6.10 Estimate d GFR ( ) April 12, 2025 11:04am April 12, 2025 11:04am >60 >=60 mL/min/1.7 3m 2 Red Blood Count April 12, 2025 11:04am April 12, 2025 11:04am 4.37 10 6/uL Below low normal 4.70-6.10 Calcium Level April 05, 2025 3:00pm April 05, 2025 3:00pm 10.1 mg/dL 8.5-10.1 Segmente d Neutroph ils # (Manual) April 05, 2025 3:00pm April 05, 2025 3:00pm 16.36 10 3/uL Above high normal 1.4-6.5 Red Cell Distribu tion Width April 05, 2025 3:00pm 14.8 % 11.0-15.0 Urine Yeast April 05, 2025 4:05pm April 05, 2025 4:05pm SEEN Abnormal (applies to non-numeric results) NONE SEEN Urine Nitrite April 05, 2025 4:05pm NEGATIVE NEGATIVE Calcium Level April 06, 2025 5:56am April 06, 2025 5:56am 9.7 mg/dL 8.5-10.1 Lymphocy heather # (Auto) April 06, 2025 5:56am April 06, 2025 5:56am 0.5 10 3/uL Below low normal 1.2-3.8 Estimate d GFR (Non-Afr ican French April 07, 2025 5:35am April 07, 2025 5:35am >60 >=60 mL/min/1.7 3m 2 Red Cell Distribu tion Width April 07, 2025 5:35am April 07, 2025 5:35am 14.7 % 11.0-15.0 Estimate d GFR (Non-Afr ican French April 08, 2025 5:22am April 08, 2025 5:22am >60 >=60 mL/min/1.7 3m 2 Red Cell Distribu tion Width April 08, 2025 5:22am April 08, 2025 5:22am 14.8 % 11.0-15.0 Estimate d GFR (Non-Afr ican French April 09, 2025 6:22am >60 >=60 mL/min/1.7 3m 2 Red Cell Distribu tion Width April 09, 2025 6:22am April 09, 2025 6:22am 15.0 % 11.0-15.0 Estimate d GFR (Non-Afr ican French April 12, 2025 11:04am April 12, 2025 11:04am >60 >=60 mL/min/1.7 3m 2 Red Cell Distribu tion Width April 12, 2025 11:04am April 12, 2025 11:04am 15.1 % Above high normal 11.0-15.0 Chloride Level April 05, 2025 3:00pm April 05, 2025 3:00pm 89 mmol/L Below low normal 98-107 Segmente d Neutroph ils April 05, 2025 3:00pm April 05, 2025 3:00pm 88.0 Above high normal 43.0-75.0 Correcte d White Blood Count April 05, 2025 3:00pm 18.6 10 3/uL Above high normal 4.0-11.0 Urine pH April 05, 2025 4:05pm 6.0 5.0-9.0 Chloride Level April 06, 2025 5:56am April 06, 2025 5:56am 94 mmol/L Below low normal 98-107 Lymphocy heather (%) (Auto) April 06, 2025 5:56am April 06, 2025 5:56am 2.9 % Below low normal 20.5-60.0 Glucose Level April 07, 2025 5:35am April 07, 2025 5:35am 314 mg/dL Above high normal 74-106 Correcte d White Blood Count April 07, 2025 5:35am April 07, 2025 5:35am 18.7 10 3/uL Above high normal 4.0-11.0 Glucose Level April 08, 2025 5:22am April 08, 2025 5:22am 176 mg/dL Above high normal 74-106 Correcte d White Blood Count April 08, 2025 5:22am April 08, 2025 5:22am 13.8 10 3/uL Above high normal 4.0-11.0 Glucose Level April 09, 2025 6:22am 187 mg/dL Above high normal 74-106 Correcte d White Blood Count April 09, 2025 6:22am April 09, 2025 6:22am 12.1 10 3/uL Above high normal 4.0-11.0 Glucose Level April 12, 2025 11:04am April 12, 2025 11:04am 229 mg/dL Above high normal 74-106 Correcte d White Blood Count April 12, 2025 11:04am April 12, 2025 11:04am 10.1 10 3/uL 4.0-11.0 Carbon Dioxide Level April 05, 2025 3:00pm April 05, 2025 3:00pm 29.3 mmol/L 21.0-32.0 Urine Protein April 05, 2025 4:05pm 30 mg/dL Abnormal (applies to non-numeric results) NEG/TRACE Carbon Dioxide Level April 06, 2025 5:56am April 06, 2025 5:56am 31.1 mmol/L 21.0-32.0 Mean Corpuscu lar Hemoglob in April 06, 2025 5:56am April 06, 2025 5:56am 31.5 pg 25.9-34.0 Potassiu m Level April 07, 2025 5:35am April 07, 2025 5:35am 3.6 mmol/L 3.5-5.1 Potass[place] m Level April 08, 2025 5:22am April 08, 2025 5:22am 4.2 mmol/L 3.5-5.1 Potassiu m Level April 09, 2025 6:22am 4.1 mmol/L 3.5-5.1 [place] m Level April 12, 2025 11:04am April 12, 2025 11:04am 5.2 mmol/L Above high normal 3.5-5.1 Creatini ne April 05, 2025 3:00pm April 05, 2025 3:00pm 1.45 mg/dL Above high normal 0.70-1.30 Urine Specific [place] April 05, 2025 4:05pm 1.010 1.005-1.02 5 Creatini ne April 06, 2025 5:56am April 06, 2025 5:56am 1.33 mg/dL Above high normal 0.70-1.30 Mean Corpuscu lar Hemoglob in Concent April 06, 2025 5:56am April 06, 2025 5:56am 34.3 g/dL 29.9-35.2 Sodium Level April 07, 2025 5:35am April 07, 2025 5:35am 135 mmol/L Below low normal 136-145 Sodium Level April 08, 2025 5:22am April 08, 2025 5:22am 140 mmol/L 136-145 Sodium Level April 09, 2025 6:22am 139 mmol/L 136-145 Sodium Level April 12, 2025 11:04am April 12, 2025 11:04am 139 mmol/L 136-145 Estimate d GFR ( ) April 05, 2025 3:00pm April 05, 2025 3:00pm 59 Below low normal >=60 mL/min/1.7 3m 2 Urine Urobilin ogen April 05, 2025 4:05pm 0.2 EU/dL 0.2-1.0 Estimate d GFR ( ) April 06, 2025 5:56am April 06, 2025 5:56am >60 >=60 mL/min/1.7 3m 2 Mean Corpuscu lar Volume April 06, 2025 5:56am April 06, 2025 5:56am 91.9 fL 80.0-94.0 Estimate d GFR (Non-Afr ican French April 05, 2025 3:00pm April 05, 2025 3:00pm 49 Below low normal >=60 mL/min/1.7 3m 2 Estimate d GFR (Non-Afr ican French April 06, 2025 5:56am April 06, 2025 5:56am 54 Below low normal >=60 mL/min/1.7 3m 2 Monocyte s # (Auto) April 06, 2025 5:56am April 06, 2025 5:56am 0.9 10 3/uL Above high normal 0.3-0.8 Globulin April 05, 2025 3:00pm April 05, 2025 3:00pm 5.6 g/dL Globulin April 06, 2025 5:56am April 06, 2025 5:56am 5.3 g/dL Monocyte s (%) (Auto) April 06, 2025 5:56am April 06, 2025 5:56am 5.1 % 1.7-12.0 Glucose Level April 05, 2025 3:00pm April 05, 2025 3:00pm 499 mg/dL Above high normal 74-106 Mean Platelet Volume April 06, 2025 5:56am April 06, 2025 5:56am 11.0 fL 9.5-13.5 [place]ass[place] m Level April 05, 2025 3:00pm April 05, 2025 3:00pm 4.0 mmol/L 3.5-5.1 [place] m Level April 06, 2025 5:56am April 06, 2025 5:56am 3.5 mmol/L 3.5-5.1 Neutroph ils # (Auto) April 06, 2025 5:56am April 06, 2025 5:56am 16.2 10 3/uL Above high normal 1.4-6.5 Sodium Level April 05, 2025 3:00pm April 05, 2025 3:00pm 125 mmol/L Below low normal 136-145 Sodium Level April 06, 2025 5:56am April 06, 2025 5:56am 130 mmol/L Below low normal 136-145 Neutroph ils (%) (Auto) April 06, 2025 5:56am April 06, 2025 5:56am 91.1 % Above high normal 43.0-75.0 Total Bilirubi n April 05, 2025 3:00pm April 05, 2025 3:00pm 1.5 mg/dL Above high normal 0.2-1.0 Total Bilirubi n April 06, 2025 5:56am April 06, 2025 5:56am 0.9 mg/dL 0.2-1.0 Platelet Count April 06, 2025 5:56am April 06, 2025 5:56am 268 10 3/uL 150-450 Total Protein April 05, 2025 3:00pm April 05, 2025 3:00pm 7.7 g/dL 6.4-8.2 Total Protein April 06, 2025 5:56am April 06, 2025 5:56am 7.1 g/dL 6.4-8.2 Red Blood Count April 06, 2025 5:56am April 06, 2025 5:56am 4.44 10 6/uL Below low normal 4.70-6.10 Red Cell Distribu tion Width April 06, 2025 5:56am April 06, 2025 5:56am 14.8 % 11.0-15.0 Correcte d White Blood Count April 06, 2025 5:56am April 06, 2025 5:56am 17.8 10 3/uL Above high normal 4.0-11.0 Microbiology Results Procedure Source Result Collection Date/Time Result Date/Time Result Comment Performing Site Urine Culture Urine, Clean-Voided Midstream Enterobacter cloacae complex April 05, 2025 4:05pm April 08, 2025 9:41am [facility] [id number] [address] [place], [place] [id number] Vital Signs Vital Reading Result Reference Range Collection Date/Time Height 71 [in_i] February 01, 2025 2:09pm [...] Mass Index) 41.7 kg/m2 January 182024 2:09pm Height 71 [in_i] April 28 2:00pm Body Temperature 95.9 [degF] 97.6-99.0 April 2:00pm Heart Rate 86 /min 60-100 April 28 2:00pm Oxygen saturation by Pulse oximetry 94 % 95-100 April 28, 2025 2: 00pm BP Systolic 144 mm[Hg] 100-140 April 28 2:00pm BP Diastolic 86 mm[Hg] 60-100 April 28 2:00pm Advance Directives Advance Directive Response Recorded Date/ Time Advance Directives No March 2:40pm Insurance Providers Guarantor Onofre Mckinney Address [address] [place] [address] Contact Info. Home Phone: Payer Policy Id Subscriber's Name Subscriber Id Susan ctive Date Expiration Date [employer] [facility] PFFS [id number] Onofre Mckinney [id number] [employer] Dual [id number] Onofre Mckinney [id number] Regular Insurance [id number] Onofre Mckinney [id number] [facility] [id number] Onofre Mckinney [id number] Encounters Encounter Location(s) Arrival/Admit Date Discharge/Depart Date Provider(s) Departed Physician/Prov ider Office Visit -[facility] February 01, 2025 2:06pm February 01, 2025 3:08pm Dara Eisenberg APRN CNP Non-patient / Non-visit -[facility] April 05, 2025 3:00pm Coco Starr MD Departed Referred -[facility] April 05, 2025 4:05pm April 05, 2025 4:06pm Coco Starr MD Non-patient / Non-visit -[facility] April 06, 2025 1:02am Erendira Richard MD Non-patient / Non-visit -[facility] April 07, 2025 5:35am Erendira Richard MD Non-patient / Non-visit -[facility] April 08, 2025 5:22am Erendira Richard MD Non-patient / Non-visit -[facility] April 09, 2025 6:22am Erendira Richard MD Non-patient / Non-visit -[facility] April 12, 2025 11:04am Erendira Richard MD Non-patient / Non-visit -[facility] April 13, 2025 8:12am Angelic Blevins CMA Departed Physician/Prov ider Office Visit -[facility] April 28, 2025 1:53pm April 28, 2025 3:09pm Dara Eisenberg APRN [employer] Recent Diagnosis Onset Date Admit Date Atrial flutter Unknown February 01, 2025 2:06pm COPD (chronic obstructive pulmonary disease) Unk nown February 01, 2025 2:06pm Heart failure Unknown February 01, 2025 2:06pm Hypertension Unknown February 01, 2025 2:06pm Mixed hyperlipidemia Unknown February 01, 2025 2:06pm Nicotine dependence Unknown February 01, 025 2:06pm Non-compliance Unknown February 01, 2025 2:06pm Non-healing wound of left lower extremity Unknow n February 01, 2025 2:06pm Non-healing wound of right lower extremity Unkno wn February 01, 2025 2:06pm Oxygen dependent Unknown February 01, 2025 2:06pm Sleep disturbance Unknown February 01 2:06pm Status post partial amputation of right foot Unk nown February 01, 2025 2:06pm Type 2 diabetes mellitus Unknown February 012024 2:06pm Type 2 diabetes mellitus with diabetic neuropath y Unknown February 01, 2025 2:06pm Venous insufficiency (chronic) (peripheral) Unkn own February 01, 2025 2:06pm Atrial flutter Unknown April 28 1:53pm Heart failure Unknown April 28 1:53pm Type 2 diabetes mellitus with diabetic neuropath y Unknown April 28, 2025 1:53pm Assessments Diagnosis Onset Date Resolution Status Admit Date Atrial flutter acute February 01, 2025 2:06pm COPD (chronic obstructive pulmonary disease) acute February 01 2:06pm Heart failure acute February 01, 2025 2:06pm Hypertension acute February 01, 025 2:06pm Mixed hyperlipidemia acute February 01, 2025 2:06pm Nicotine dependence acute February 01, 2025 2:06pm Non-compliance acute February 01, 2025 2:06pm Non-healing wound of left lo wer extremity acute February 01, 2025 2:06pm Non-healing wound of right l ower extremity acute February 01, 2025 2:06pm Oxygen dependent acute January 2:06pm Sleep disturbance acute February 012024 2:06pm Status post partial amputati on of right foot acute February 01, 2025 2:06pm Type 2 diabetes mellitus acute February 01, 2025 2:06pm Type 2 diabetes mellitus wit h diabetic neuropathy acute February 01, 2:06pm Venous insufficiency (chroni c) (peripheral) acute February 01, 2025 2:06pm Atrial flutter acute April 1:53pm Heart failure acute April 1:53pm Type 2 diabetes mellitus wit h diabetic neuropathy acute April 28, 2025 1:53pm Plan of Treatment [facility] Authored February 07, 2025 9:01 am A1c 11 Currently on Glipizide and Lantus But he has not been taking this as he was supposed to. Discussed with pt that he needs to take this as prescribed as this will be beneficial to get his blood glucose levels down. He continues to be adamant that if he takes this OTC supplement that his diabetes will be cured. Discussed that as long as his levels are elevated his lower extremties are not going to heal and that he will continue to go in and out of the hospital due to sepsis and uncontrolled infections of the legs. Patient is advised to work on healthy [...] oxygen while at home and at night. He does not have an portable oxygen concentrator to use for visit outside the home. His O2 sats on room air 88-90% He needs a portable oxygen concentrator. Referral will be placed as this will serve as the face to face visit. He is currently on Metoprolol, heart rate is controlled. Unaware of palpitations, or shortness of breath. No chest pain. He is currency taking Coumadin and is following with [facility] coumadin clinic. Continue Lasix. Discussed definition of heart failure as well as etiology, treatments, and medications relating to decreasing heart failure exacerbations in the future. Encouraged patient to weigh self every morning before breakfast and inform loop machine operator if weight increases more than 2 pounds [...] any chest pain or if fainting occurs. Continue on atorvastatin. Lipid panel reviewed with [...] a copy of the plan of care. Examined wounds in the office today, dressings are soaked with green drainage and are very malodorous. He has an appt with wound clinic today following this appt. He has been taking Seroquel and is to increase this to 100mg Denies any side effects. Pt to call if not beneficial. Risk of medical noncompliance explained to patient, including CVA, NE, kidney damage, even sudden . We discussed [...] and willingness to quit at each appointment. May need to add gabapentin at bedtime for his neuropathy this is when this seems to be worse. Pt will call with update with seroquel. Future Tests Future scheduled test information is unavailable Pending Tests Pending diagnostic test information is unavailable Future Visits Future appointment information is unavailable Referrals to Other Providers Referral information is unavailable Future Procedures Future procedure information is unavailable Future Medications Future medication information is unavailable Patient Instructions Patient instructions are unavailable
--- OUTSIDE RECORDS SUMMARY | 2025-05-03 13:44 | XMS_ITS | Clinical Summary ---
Author Organization [facility] Address [address] [place] [address] Care Team Providers Care Lighting Director Name Role Phone Dara Eisenberg NP Primary Care Provider Social History Tobacco Use Types Packs/Day Years Used Date Smoking Tobacco: Never Assessed Sex and Gender Information Value Date Recorded Sex Assigned at Not on file Legal Sex Male 7:20 PM EDT Gender Identity Not on file Sexual Orientation Not on file Plan of Treatment Not on file Insurance [employer] MEDICARE Care Teams Lighting Director Relationship Specialty Start Date End Date Dara Eisenberg NP [address] [facility] [place] [address] PCP - General Family Medicine 11/11/24
--- OUTSIDE RECORDS SUMMARY | 2025-05-03 13:44 | XMS_ITS | Clinical Summary ---
Author Organization [facility] Address [address] [place] [address] Care Team Providers Care Air Conditioning Manager Name Role Phone Dara Eisenberg NP Primary Care Provider [phone] Allergies No known active allergies Medications insulin [...] 5 Active furosemide (Lasix) 40 mg tabletIndications:Ac timbi-sha shoshone hypoxic respiratory failure (CMS/HCC) Take 1 tablet [...] uit: Not Asked; Counseling Given: Not Answered [facility] Utilities Answer Date Recorded In the [...] any time in the past 12 m [facility], were you homeless or living in a fdc (including now)? Patient unable to answer 08/15/2024 [...] - 6.0 % 08/16/2024 12:30 PM EST [facility] ([facility]) Estimated Average Glucose 189 mg/dL 08/16/2024 12:30 PM EST [facility] ([facility]) Blood Venous blood specimen / Unknown Arterial Line / Unknown 08/15/2024 2:04 PM EST 08/15/2024 2:30 PM EST Chantal Woodruff MD LAB BLOOD ORDERABLES Final Re sult [facility] ([facility]) [address] [address] from Last 3 Months or Most Recently Relevant to Health Maintenance Additional Health Concerns Infection Onset Date Last Indicated MRSA 08/18/2024 08/21/2024 Insurance [employer] Advance Directives * Full Code (Latest Code Status on File) Date Activated Date Inactivated Comments 08/15/2024 12:24 PM 09/09/2024 2:30 PM Care Teams Air Conditioning Manager Relationship Specialty Start Date End Date Dara Eisenberg NP [address] [place], [place] [id number] PCP - General Family Medicine 07/21/24
--- OUTSIDE RECORDS SUMMARY | 2025-05-03 13:44 | XMS_ITS | Patient Health Record ---
Author Organization [facility] [place] Address [address] [place] [address] Care Team Providers Care Installer Apprentice Name Role Phone Dara Eisenberg CNP Primary [...] Clindamycin S F Aerobic Culture Organism: Becky n Eleanor Staph Aureus : Aerobic Culture [...] Culture Organism: Staphylococcus aureus : O:[facility] Organ[facility]: 2.1 Antibiotic Interpretation CHEN [...] Culture Organism: Staphylococcus aureus : O:MRSA Isolated O:[facility] Isolated Organism: 2.1 Antibiotic Interpretation [...] Culture Organism: Staphylococcus aureus : O:MRSA Isolated O:[facility] Isolated Organism: 2.1 Antibiotic Interpretation [...] Culture Organism: Staphylococcus aureus : O:MRSA Isolated O:[facility] Isolated Organism: 2.1 Antibiotic Interpretation CHEN Status Ciprofloxacin Ciprofloxacin R F Erythromycin Erythromycin R F Gentamicin Gentamicin S F Levofloxacin Levofloxacin R F Linezolid Linezolid S F Oxacillin Oxacillin R F Penicillin Penicillin R F Rifampin Rifampin S F Tetracycline Tetracycline S F Trimethoprim/Sulfamethox azole Trimethoprim/Sulfamethox azole R F Vancomycin Vancomycin S F Clindamycin Clindamycin S F Aerobic Culture Performed at: [facility] Aerobic Culture Organism: Staphylococcus aureus : [...] F Clindamycin Clindamycin S F Aerobic Culture [address] [place] [id number] Aerobic Culture Organism: Staphylococcus aureus : O:MRSA [...] F Clindamycin Clindamycin S F Aerobic Culture Engraver Letter: Yung Saeed PhD, Phone: [phone] Aerobic Culture Organism: Staphylococcus aureus : O:MRSA [facility]olated [facility] Isolated Organism: 2.1 Antibiotic Interpretation CHEN [...] Culture Organism: Staphylococcus aureus : O:MRSA [facility]olated [facility] Isolated Organism: 2.1 Antibiotic Interpretation CHEN [...] Culture Organism: Staphylococcus aureus : O:MRSA Isolated O:[facility] Isolated Organism: 2.1 Antibiotic Interpretation [...] Culture Organism: Staphylococcus aureus : O:MRSA Isolated O:[facility] Isolated Organism: 2.1 Antibiotic Interpretation [...] Culture Organism: Staphylococcus aureus : O:MRSA Isolated O:[facility] Isolated Organism: 2.1 Antibiotic Interpretation [...] Culture Organism: Staphylococcus aureus : O:[facility]SA [facility]olated [facility] Isolated Organism: 2.1 Antibiotic Interpretation CHEN [...] Culture Organism: Staphylococcus aureus : O:MRSA [facility]olated [facility] Isolated Organism: 2.1 Antibiotic Interpretation CHEN [...] LC - [facility] SEE REPORT - Hand Rug Braider Id information not found for OBX-specific reproducer legend Anaerobic Culture (Not yet r eviewed [...] Antibiotic Interpretation CHEN Status Aerobic Culture Organism: Becky n Resis Staph Aureus : Aerobic Culture [...] Interpretation CHEN Status Aerobic Culture Performed at: [facility] Aerobic Culture Organism: Staphylococcus aureus : O:MRSA Isolated O:[facility] Isolated Organism: 1.1 Antibiotic Interpretation CHEN Status Aerobic Culture [address], [place] [id number] Aerobic Culture Organism: Staphylococcus aureus : O:MRSA Isolated O:[facility] Isolated Organism: 1.1 Antibiotic Interpretation CHEN Status Aerobic Culture Engraver Letter: Yung Saeed PhD, Phone: [phone] Aerobic Culture Organism: Staphylococcus aureus : O:MRSA [...] LC - [facility] SEE REPORT - Hand Rug Braider Id information not found for OBX-specific reproducer legend Reason For Referral No Information Medications [...] ulcer due to type 2 diabetes mellitus (6800916918884) Type 2 diabetes mellitus with foot ulcer (E11.621) Active confirmed Problem Chronic ulcer of lower extremity (79279959) Non-pressure chronic ulcer of other part of right lower leg limited to breakdown of skin (L97.811) Active confirmed Problem Chronic non-pressure ulcer of calf extending to fat level (7666422487769109 1) Non-pressure chronic ulcer of other part of right lower leg with fat layer exposed (L97.812) Active confirmed Problem Non-pressure chronic ulcer of other part of left lower leg with fat layer exposed (L97.822) Active confirmed Problem Acute exacerbation of chronic obstructive airways disease (974577303) COPD exacerbation (J44.1) Active confirmed Problem 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 with ulcer (I87.313) Active confirmed Problem Ulcer of left lower leg (disorder) (3527161091669290 3) Leg ulcer, left, limited to breakdown of skin (L97.921) Active confirmed Problem Acute osteomyelitis of ankle and/or foot (504652770) Acute osteomyelitis of right ankle or foot [...] stump (T87.89) Active confirmed Problem Diabetes mellitus (09208267) Diabetes mellitus (E11.9) Active confirmed Problem Polyneuropathy due to type 2 diabetes mellitus (665862977) Controlled type 2 diabetes mellitus with diabetic polyneuropathy, unspecified whether terminal operations supervisor insulin use (E11.42) Active confirmed Problem Polyneuropathy due to type 2 diabetes mellitus (245660859) 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) Active confirmed [...] Insured Coverage Start Date Coverage End Date [facility] [address] [address] [place], [place] [id number] [phone] [id number] Onofre Mckinney Self - patient is the insured
--- OUTSIDE RECORDS SUMMARY | 2025-05-03 13:44 | XMS_ITS | Clinical Summary ---
Author Organization [facility] Address [address] [place] [address] Care Team Providers Care Scrap Hoist Operator Name Role Phone No, Physician Primary [...] - 1-dose 75+ series) 2033 Care Teams Scrap Hoist Operator Relationship Specialty Start Date End Date No, Physician [facility] PCP - General 10/04/16
--- OUTSIDE RECORDS SUMMARY | 2025-05-03 13:44 | XMS_ITS | Encounter Summary ---
Author Organization [facility] Address [address] [place] [address] Care Team Providers Care Raveler Name Role Phone Dara Eisenberg STATION MECHANIC Primary Care Provider Encounter Details Date Type Department Care Team ([facility] Contact Info) Description 01/26/2025 Abstract [facility] [address] [place] [id number] Sina Mckeon, DPM FACFAS [address] [place] [address] Social History Tobacco Use Types Packs/Day Years [...] on filedocumented in this encounter Care Teams Raveler Relationship Specialty Start Date End Date Dara Eisenberg NP [address] [facility] [address] [place] [address] PCP - General Family Medicine 11/11/24 documented as of this encounter
--- OUTSIDE RECORDS SUMMARY | 2025-05-03 13:44 | XMS_ITS | Clinical Summary ---
Author Organization [facility] Address [id number] [address] [id number] Care Team Providers Care Accounts Payable Manager Name Role Phone Unavailable Primary Care [...]
--- OUTSIDE RECORDS SUMMARY | 2025-05-03 13:50 | XMS_ITS | CCD ---
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 on 04-07-2025 WBC corrected for nucl RBC Auto (Bld) [#/Vol] 18.7 10 3/uL High 4.0-11.0 [facility] MCH Auto (RBC) [Entitic mass ]Ordered By: Erendira Richard on 04-07-2025 MCH (RBC) [Entitic mass] 30.7 pg 25.9-34.0 [facility] MCHC Auto (RBC) [Mass/Vol]Or dered By: Erendira Richard on 04-07-2025 MCHC (RBC) [Mass/Vol] 32.8 g/dL 29.9-35.2 [facility] MCV Auto (RBC) [Entitic vol] Ordered By: Erendira Richard on 04-07-2025 MCV (RBC) [Entitic vol] 93.4 fL 80.0-94.0 [facility] No Panel InformationOrdered By: Erendira Richard on 04-07-2025 Vancomycin Level Trough 17.2 ug/mL 5.0-20.0 [facility] Platelet mean volume Auto (B ld) [Entitic vol]Ordered By: Erendira Richard on 04-07-2025 Platelet mean volume (Bld) [Entitic vol] 11.1 fL 9.5-13.5 [facility] Platelets Auto (Bld) [#/Vol] Ordered By: Erendira Richard on 04-07-2025 Platelets (Bld) [#/Vol] 294 10 3/uL 150-450 [facility] RBC Auto (Bld) [#/Vol]Ordere d By: Erendira Richard on 04-07-2025 RBC (Bld) [#/Vol] 4.40 10 6/uL Low 4.70-6.10 [facility] Serum or plasma anion gap de terminationOrdered By: Erendira Richard on 04-07-2025 Anion gap [Moles/Vol] 7.8 mmol/L [facility] Basophils Auto (Bld) [#/Vol] Ordered By: Erendira Richard on 04-06-2025 Basophils (Bld) [#/Vol] 0.0 10 3/uL 0.0-0.1 [facility] Basophils/100 WBC Auto (Bld) Ordered By: Erendira Richard on 04-06-2025 Basophils/100 WBC (Bld) 0.1 % Low 0.2-2.0 [facility] Eosinophils/100 WBC Auto (Bl d)Ordered By: Erendira Richard on 04-06-2025 Eosinophils/100 WBC (Bld) 0.0 % Low 0.9-7.0 [facility] Erythrocyte distribution wid th Auto (RBC) [Ratio]Ordered By: Erendira Richard on 04-06-2025 Erythrocyte distribution width (RBC) [Ratio] 14.8 % 11.0-15.0 [facility] Globulin Calc (S) [Mass/Vol] Ordered By: Erendira Richard on 04-06-2025 Globulin (S) [Mass/Vol] 5.3 g/dL [facility] Glomerular filtration rate ( GFR) estimation in non- AmericanOrdered By: Erendira Richard on 04-06-2025 GFR/1.73 sq M.predicted among non-blacks MDRD (S/P/Bld) [Vol rate/Area] 54 mL/min/{1.73_m2} Low >=60 mL/min/1.73 m 2 [facility] Hematocrit Auto (Bld) [Volum e fraction]Ordered By: Erendira Richard on 04-06-2025 Hematocrit (Bld) [Volume fraction] 40.8 % Low 42.0-54.0 [facility] Hemoglobin [Mass/volume] in BloodOrdered By: Erendira Richard on 04-06-2025 Hemoglobin (Bld) [Mass/Vol] 14.0 g/dL 14.0-18.0 [facility] - Chemistry and C hemistry - challengeOrdered By: Erendira Richard on 04-06-2025 Glucose [Mass/Vol] 530 mg/dL Critically high 74-106 [facility] Comment on above: RESULTS CALLED TO PAMELA LEÓN RN @BY Gely Bradley at 2259 Albumin [Mass/Vol] 1.8 g/dL Low 3.4-5.0 [facility] ALP [Catalytic activity/Vol] 127 U/L High 46-116 [facility] ALT [Catalytic activity/Vol] 13 U/L Low 16-63 [facility] AST [Catalytic activity/Vol] 15 U/L 15-37 [facility] Bilirubin [Mass/Vol] 0.9 mg/dL 0.2-1.0 [facility] Calcium [Mass/Vol] 9.7 mg/dL 8.5-10.1 [facility] Chloride [Moles/Vol] 94 mmol/L Low 98-107 [facility] CO2 [Moles/Vol] 31.1 mmol/L 21.0-32.0 [facility] Creatinine [Mass/Vol] 1.33 mg/dL High 0.70-1.30 [facility] GFR/1.73 sq M.predicted MDRD (S/P/Bld) [Vol rate/Area] mL/min/{1.73_m2} >=60 mL/min/1.73 m 2 [facility] Magnesium [Mass/Vol] 2.0 mg/dL 1.8-2.4 [facility] Potassium [Moles/Vol] 3.5 mmol/L 3.5-5.1 [facility] Protein [Mass/Vol] 7.1 g/dL 6.4-8.2 [facility] Sodium [Moles/Vol] 130 mmol/L Low 136-145 [facility] Urea nitrogen [Mass/Vol] 33.0 mg/dL High 7.0-18.0 [facility] Urea nitrogen/Creatinine [Mass ratio] 24.8 mg/mg [facility] - Hematology and Cell countsOrdered By: Erendira Richard on 04-06-2025 Immature granulocytes/100 WBC (Bld) 0.8 % High 0.0-0.5 [facility] Leukocytes [#/volume] correc beatris for nucleated erythrocytes in Blood by Automated counOrdered By: Erendira Richard on 04-06-2025 WBC corrected for nucl RBC Auto (Bld) [#/Vol] 17.8 10 3/uL High 4.0-11.0 [facility] Lymphocytes Auto (Bld) [#/Vo l]Ordered By: Erendira Richard on 04-06-2025 Lymphocytes (Bld) [#/Vol] 0.5 10 3/uL Low 1.2-3.8 [facility] Lymphocytes/100 WBC Auto (Bl d)Ordered By: Erendira Richard on 04-06-2025 Lymphocytes/100 WBC (Bld) 2.9 % Low 20.5-60.0 [facility] MCH Auto (RBC) [Entitic mass ]Ordered By: Erendira Richard on 04-06-2025 MCH (RBC) [Entitic mass] 31.5 pg 25.9-34.0 [facility] MCHC Auto (RBC) [Mass/Vol]Or dered By: Erendira Richard on 04-06-2025 MCHC (RBC) [Mass/Vol] 34.3 g/dL 29.9-35.2 [facility] MCV Auto (RBC) [Entitic vol] Ordered By: Erendira Richard on 04-06-2025 MCV (RBC) [Entitic vol] 91.9 fL 80.0-94.0 [facility] Monocytes Auto (Bld) [#/Vol] Ordered By: Erendira Richard on 04-06-2025 Monocytes (Bld) [#/Vol] 0.9 10 3/uL High 0.3-0.8 [facility] Monocytes/100 WBC Auto (Bld) Ordered By: Erendira Richard on 04-06-2025 Monocytes/100 WBC (Bld) 5.1 % 1.7-12.0 [facility] Neutrophils Auto (Bld) [#/Vo l]Ordered By: Erendira Richard on 04-06-2025 Neutrophils (Bld) [#/Vol] 16.2 10 3/uL High 1.4-6.5 [facility] Neutrophils/100 WBC Auto (Bl d)Ordered By: Erendira Richard on 04-06-2025 Neutrophils/100 WBC (Bld) 91.1 % High 43.0-75.0 [facility] No Panel InformationOrdered By: Erendira Richard on 04-06-2025 Eosinophils # (Auto) 0.0 10 3/uL 0.0-0.7 [facility] Immature Granulocyte # (Auto) 0.14 10 3/uL High 0.00-0.03 [facility] Troponin I High Sensitivity 6.3 pg/mL 4.0-76.1 [facility] Comment on above: CUT-OFF POINTS HAVE [...] volume (Bld) [Entitic vol] 11.0 fL 9.5-13.5 [facility] Platelets Auto (Bld) [#/Vol] Ordered By: Erendira Richard on 04-06-2025 Platelets (Bld) [#/Vol] 268 10 3/uL 150-450 [facility] RBC Auto (Bld) [#/Vol]Ordere d By: Erendira Richard on 04-06-2025 RBC (Bld) [#/Vol] 4.44 10 6/uL Low 4.70-6.10 [facility] Serum or plasma albumin/glob ulin mass ratioOrdered By: Erendira Richard on 04-06-2025 Albumin/Globulin [Mass ratio] 0.3 {ratio} [facility] Serum or plasma anion gap de terminationOrdered By: Erendira Richard on 04-06-2025 Anion gap [Moles/Vol] 8.4 mmol/L [facility] Basophils/100 WBC Manual cnt (Bld)Ordered By: Coco Starr on 04-05-2025 Basophils/100 WBC (Bld) 1.0 % 0.2-2.0 [facility] Eosinophils/100 WBC Manual c nt (Bld)Ordered By: Coco Starr on 04-05-2025 Eosinophils/100 WBC (Bld) 0.0 % Low 0.9-7.0 [facility] Erythrocyte distribution wid th Auto (RBC) [Ratio]Ordered By: Coco Starr on 04-05-2025 Erythrocyte distribution width (RBC) [Ratio] 14.8 % 11.0-15.0 [facility] Globulin Calc (S) [Mass/Vol] Ordered By: Coco Starr on 04-05-2025 Globulin (S) [Mass/Vol] 5.6 g/dL [facility] Glomerular filtration rate ( GFR) estimation in non- AmericanOrdered By: Coco Starr on 04-05-2025 GFR/1.73 sq M.predicted among non-blacks MDRD (S/P/Bld) [Vol rate/Area] 49 mL/min/{1.73_m2} Low >=60 mL/min/1.73 m 2 [facility] Hematocrit Auto (Bld) [Volum e fraction]Ordered By: Coco Starr on 04-05-2025 Hematocrit (Bld) [Volume fraction] 43.2 % 42.0-54.0 [facility] Hemoglobin [Mass/volume] in BloodOrdered By: Coco Starr on 04-05-2025 Hemoglobin (Bld) [Mass/Vol] 14.9 g/dL 14.0-18.0 [facility] INR in Platelet poor plasma by Coagulation assayOrdered By: Coco Starr on 04-05-2025 INR Coag (PPP) [Relative time] 1.04 {INR} [facility] Comment on above: DESIRED INR:2.0-3.0 CONDITIONS NOT LISTED BELOW2.5-3.5 FOR PROSTHETIC HEART VALVE REPLACEMENT2.5-3.5 [facility] Laboratory - Chemistry and C hemistry - challengeOrdered By: Nyasia Hadley on 04-05-2025 Lactate [Moles/Vol] 1.4 mmol/L 0.4-2.0 [facility] Natriuretic peptide B (Bld) [Mass/Vol] 312.0 pg/mL <=900.0 [facility] Bilirubin Ql (U) Negative NEGATIVE [facility] Glucose (U) [Mass/Vol] mg/dL Abnormal NEGATIVE [facility] Ketones Ql (U) Negative NEGATIVE [facility] pH (U) 6.0 [pH] 5.0-9.0 [facility] Specific gravity (U) [Rel density] 1.010 1.005-1.025 [facility] Urobilinogen Qn (U) 0.2 {Madelin'U}/dL 0.2-1.0 [facility] Laboratory - Chemistry and C hemistry - challengeOrdered By: Coco Starr on 04-05-2025 Albumin [Mass/Vol] 2.1 g/dL Low 3.4-5.0 [facility] ALP [Catalytic activity/Vol] 143 U/L High 46-116 [facility] ALT [Catalytic activity/Vol] 14 U/L Low 16-63 [facility] AST [Catalytic activity/Vol] 11 U/L Low 15-37 [facility] Bilirubin [Mass/Vol] 1.5 mg/dL High 0.2-1.0 [facility] Calcium [Mass/Vol] 10.1 mg/dL 8.5-10.1 [facility] Chloride [Moles/Vol] 89 mmol/L Low 98-107 [facility] CO2 [Moles/Vol] 29.3 mmol/L 21.0-32.0 [facility] Creatinine [Mass/Vol] 1.45 mg/dL High 0.70-1.30 [facility] GFR/1.73 sq M.predicted MDRD (S/P/Bld) [Vol rate/Area] 59 mL/min/{1.73_m2} Low >=60 mL/min/1.73 m 2 [facility] Glucose [Mass/Vol] 499 mg/dL High 74-106 [facility] Potassium [Moles/Vol] 4.0 mmol/L 3.5-5.1 [facility] Protein [Mass/Vol] 7.7 g/dL 6.4-8.2 [facility] Sodium [Moles/Vol] 125 mmol/L Low 136-145 [facility] Urea nitrogen [Mass/Vol] 29.0 mg/dL High 7.0-18.0 [facility] Urea nitrogen/Creatinine [Mass ratio] 20.0 mg/mg [facility] Laboratory - Hematology and Cell countsOrdered By: Coco Starr on 04-05-2025 Lymphocytes/100 WBC (Bld) 4.0 % Low 20.5-60.0 [facility] Monocytes/100 WBC (Bld) 7.0 % 1.7-12.0 [facility] - Microbiology an d Antimicrobial susceptibilityOrdered By: Nyasia Hadley on 04-05-2025 SARS-CoV-2 (COVID-19) RNA GRACE+probe Ql (Unsp spec) Negative NEGATIVE [facility] Comment on above: This test has [...] on 04-05-2025 Appearance (U) SL CLOUDY CLEAR [facility] Color (U) LT. YELLOW YELLOW [facility] - UrinalysisOrder ed By: Nyasia Hadley on 04-05-2025 Leukocyte esterase Test strip Ql (U) TRACE Abnormal NEGATIVE [facility] Mucus Ql (Urine sed) NONE SEEN NONE SEEN [facility] Nitrite Ql (U) Negative NEGATIVE [facility] Protein Ql (U) 30 mg/dL Abnormal NEG/TRACE [facility] Leukocytes [#/volume] correc beatris for nucleated erythrocytes in Blood by Automated counOrdered By: Coco Starr on 04-05-2025 WBC corrected for nucl RBC Auto (Bld) [#/Vol] 18.6 10 3/uL High 4.0-11.0 [facility] MCH Auto (RBC) [Entitic mass ]Ordered By: Coco Starr on 04-05-2025 MCH (RBC) [Entitic mass] 31.2 pg 25.9-34.0 [facility] MCHC Auto (RBC) [Mass/Vol]Or dered By: Coco Starr on 04-05-2025 MCHC (RBC) [Mass/Vol] 34.5 g/dL 29.9-35.2 [facility] MCV Auto (RBC) [Entitic vol] Ordered By: Coco Starr on 04-05-2025 MCV (RBC) [Entitic vol] 90.4 fL 80.0-94.0 [facility] No Panel InformationOrdered By: Nyasia Hadley on 04-05-2025 Troponin I High Sensitivity 7.2 pg/mL 4.0-76.1 [facility] Comment on above: CUT-OFF POINTS HAVE [...] Urine Bacteria MODERATE #/HPF Abnormal NONE SEEN [facility] Urine Culture Reflexed YES-[facility] Urine Microscopic Review YES [facility] Urine Occult Blood LARGE Abnormal NEGATIVE [facility] Urine Other Casts NONE SEEN #/LPF NONE SEEN [facility] Urine Other Crystals None Seen #/HPF None Seen [facility] Urine RBC 10-20 #/HPF Abnormal 0-2 [facility] Urine Squamous Epithelial Cells RARE #/LPF NONE/RARE [facility] Urine WBC 50-75 #/HPF Abnormal NONE SEEN [facility] No Panel InformationOrdered By: Coco Starr on 04-05-2025 Absolute Basophils (Manual) 0.18 10 3/uL High 0.00-0.10 [facility] Eosinophils # (Manual) 0.00 10 3/uL 0.00-0.70 [facility] Lymphocytes # (Manual) 0.74 10 3/uL Low 1.20-3.80 [facility] Monocytes # (Manual) 1.30 10 3/uL High 0.30-0.80 [facility] Segmented Neutrophils # (Manual) 16.36 10 3/uL High 1.4-6.5 [facility] Platelet mean volume Auto (B ld) [Entitic vol]Ordered By: Coco Starr on 04-05-2025 Platelet mean volume (Bld) [Entitic vol] 11.8 fL 9.5-13.5 [facility] Platelets Auto (Bld) [#/Vol] Ordered By: Coco Starr on 04-05-2025 Platelets (Bld) [#/Vol] 284 10 3/uL 150-450 [facility] Prothrombin time (PT)Ordered By: Coco Starr on 04-05-2025 PT Coag (PPP) [Time] 11.0 s 9.0-11.6 [facility] RBC Auto (Bld) [#/Vol]Ordere d By: Coco Starr on 04-05-2025 RBC (Bld) [#/Vol] 4.78 10 6/uL 4.70-6.10 [facility] Segmented neutrophils/100 WB C Manual cnt (Bld)Ordered By: Coco Starr on 04-05-2025 Segmented neutrophils/100 WBC (Bld) 88.0 % High 43.0-75.0 [facility] Serum or plasma albumin/glob ulin mass ratioOrdered By: Coco Starr on 04-05-2025 Albumin/Globulin [Mass ratio] 0.4 {ratio} [facility] Serum or plasma anion gap de terminationOrdered By: Coco Starr on 04-05-2025 Anion gap [Moles/Vol] 10.7 mmol/L [facility] Urine Cultureon 04-05-2025 Bacteria identified Cx Nom (U) ORGANISM: Enterobacter cloacae complex (O:ENTCLOCPLX) [place] Count >100,000 Aerobic CHEN Charge (NMIC56) ---- [...] RESISTANT TO ALL B-LACTAM DRUGS. PERFORMED BY: [place] [address] PATHOLOGIST [employer] ISAAK DURBIN M.D. Normal [facility] Comment on above: Performed By: #### C UU #### [address] Urine cultureOrdered By: Lauren Starr on 04-05-2025 Bacteria identified Cx Nom (U) Enterobacter cloacae complex Abnormal [facility] Yeast detection in urine sed iment by light microscopyOrdered By: Nyasia Hadley on 04-05-2025 Yeast LM Ql (Urine sed) SEEN Abnormal NONE SEEN [facility] POCT PT/INRon 02-15-2025 POCT INR 1.3 High .7-1.2 [facility] Comment on above: Performed By: #### 2 [id number] #### [facility] [address] [place] [address] POCT PT 15.1 second(s) High 8.0-15.0 [facility] Comment on above: Performed By: #### 2 [id number] #### [facility] [address] [place] [address] BMPon 01-26-2025 Anion gap [Moles/Vol] 7 mmol/L Normal 6-16 [facility] Comment on above: Performed By: #### 2 [id number] #### [facility] [address] [place] [address] BUN/Creat Ratio 30 No Units High 10-20 [facility] Comment on above: Performed By: #### 2 [id number] #### [facility] [address] [place] [address] Calcium [Mass/Vol] 9.3 mg/dL Normal 8.9-11.1 [facility] Comment on above: Performed By: #### 2 [id number] #### [facility] [address] [place] [address] Chloride [Moles/Vol] 103 mmol/L Normal 101-[address] [facility] Comment on above: Performed By: #### 2 [id number] #### [facility] [address] [place] [address] CO2 [Moles/Vol] 29 mmol/L Normal 21-31 [facility] Comment on above: Performed By: #### 2 [id number] #### [facility] [address] [place] [address] Creatinine [Mass/Vol] 0.8 mg/dL Normal 0.5-1.3 [facility] Comment on above: Performed By: #### 2 [id number] #### [facility] [address] [place] [address] Glucose [Mass/Vol] 214 mg/dL High 55-199 [facility] Comment on above: Performed By: #### 2 [id number] #### [facility] [address] [place] [address] Potassium [Moles/Vol] 3.6 mmol/L Normal 3.5-5.3 [facility] Comment on above: Performed By: #### 2 [id number] #### [facility] [address] [place] [address] Sodium [Moles/Vol] 135 mmol/L Normal 135-145 [facility] Comment on above: Performed By: #### 2 [id number] #### [facility] [address] [place] [address] Urea nitrogen [Mass/Vol] 24 mg/dL High 5-21 [facility] Comment on above: Performed By: #### 2 [id number] #### [facility] [address] [place] [address] CBC w/ Auto Diffon 5 Basophil Absolute 0.1 E9/L Normal 0.0-0.2 [facility] Comment on above: Performed By: #### 2 [id number] #### [facility] [address] [place] [address] Basophils/100 WBC (Bld) 1.4 % Normal 0.0-2.0 [facility] Comment on above: Performed By: #### 2 [id number] #### [facility] [address] [place] [address] Eos Absolute 0.3 E9/L Normal 0.0-0.5 [facility] Comment on above: Performed By: #### 2 [id number] #### [facility] [address] [place] [address] Eosinophils/100 WBC (Bld) 3.5 % Normal 0.0-8.0 [facility] Comment on above: Performed By: #### 2 [id number] #### [facility] [address] [place] [address] Erythrocyte distribution width (RBC) [Ratio] 17.1 % High 10.9-14.2 [facility] Comment on above: Performed By: #### 2 [id number] #### [facility] [address] [place] [address] Hematocrit (Bld) [Volume fraction] 36.9 % Low 37.7-49.0 [facility] Comment on above: Performed By: #### 2 [id number] #### [facility] [address] [place] [address] Hemoglobin (Bld) [Mass/Vol] 12.7 g/dL Low 13.5-17.5 [facility] Comment on above: Performed By: #### 2 [id number] #### [facility] [address] [place] [address] Lymph Absolute 1.5 E9/L Normal 1.0-4.0 [facility] Comment on above: Performed By: #### 2 [id number] #### [facility] [address] [place] [address] Lymphocytes/100 WBC (Bld) 18.9 % Normal 14.0-50.0 [facility] Comment on above: Performed By: #### 2 [id number] #### [facility] [address] [place] [address] MCH (RBC) [Entitic mass] 31.6 pg Normal 27.0-34.0 [facility] Comment on above: Performed By: #### 2 [id number] #### [facility] [address] [place] [address] MCHC (RBC) [Mass/Vol] 34.4 g/dL Normal 31.4-36.0 [facility] Comment on above: Performed By: #### 2 [id number] #### [facility] [address] [place] [address] MCV (RBC) [Entitic vol] 91.9 fL Normal 80.0-100.0 [facility] Comment on above: Performed By: #### 2 [id number] #### [facility] [address] [place] [address] [place] Absolute 1.0 E9/L Normal 0.2-1.0 [facility] Comment on above: Performed By: #### 2 [id number] #### [facility] [address] [place] [address] Monocytes/100 WBC (Bld) 12.1 % Normal 4.0-14.0 [facility] Comment on above: Performed By: #### 2 [id number] #### [facility] [address] [place] [address] Neutro Absolute 5.1 E9/L Normal 2.0-7.5 [facility] Comment on above: Performed By: #### 2 [id number] #### [facility] [address] [place] [address] Neutro Auto 64.1 % Normal 36.0-75.0 [facility] Comment on above: Performed By: #### 2 [id number] #### [facility] [address] [place] [address] Platelet 226.0 E9/L Normal 150.0-500.0 [facility] Comment on above: Performed By: #### 2 [id number] #### [facility] [address] [place] [address] Platelet mean volume (Bld) [Entitic vol] 8.5 fL Normal 6.4-10.8 [facility] Comment on above: Performed By: #### 2 [id number] #### [facility] [address] [place] [address] RBC 4.0 E12/L Low 4.3-5.9 [facility] Comment on above: Performed By: #### 2 [id number] #### [facility] [address] [place] [address] WBC 7.9 E9/L Normal 4.0-11.0 [facility] Comment on above: Performed By: #### 2 [id number] #### [facility] [address] [place] [address] Capillary Glucose POCon Glucose [Mass/Vol] 318 mg/dL High 55-99 [facility] Comment on above: Result Comment: Cindy calle RN/ Performed By: #### 2 [id number] #### [facility] [address] [place] [address] Glucose [Mass/Vol] 203 mg/dL High 55-99 [facility] Comment on above: Result Comment: Cindy GAMBOA Performed By: #### 2 [id number] #### [facility] [address] [place] [address] Inpatient Clinical Summaryon 01-26-2025 Inpatient Clinical Summary Inpatient Clinical Summary [address] [address] Clinical Summary Person Information: Name: TYLER SMITH Age: 64 Years : 1960 Sex: Male PCP: DARA EISENBERG CNP Marital Status: Single Phone: [phone] Race: White Ethnicity: Non- or Language: Ivorian Visit Id: Visit Reason: Medical problem - major; VERICOSE VEIN TOURNIQUET Speciality: Acuity: Enc Type: Inpatient Med Service: Medical Arrival: 01/24/2025 11:29:33 Discharge: Dispo Type: Admitted as IP to this Hosp Address: [address] [place] [id number] Provider Notes: Diagnosis: 1:Severe sepsis; 2:Cellulitis of leg; 3:KRISTINE (acute kidney injury); 4:Atrial fibrillation with RVR; 5: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; 6:Hyponatremia; 7:Noncompliance with medications; 8:Insulin dependent type 2 diabetes mellitus; 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 Problems Active Smoker [...] up: With: Address: When: DARA EISENBERG [address] [facility], [place] [phone] Business (1) [facility], [place] [phone] Business (1) 01/31/2025 11:00 AM Comments: Call Dr for diagnosis based follow up With: Address: When: [facility] [phone] With: Address: When: OZZIE KASPERBAGH [address] [place], [place] [phone] Business (1) Within 4 weeks Comments: Call for followup appointment With: Address: When: Follow up as scheduled with J.W. [facility] With: Address: When: [facility] [address] [place] [address] Business (1) Within 3 to 5 days Comments: Call for followup appointment Patient Education Information: Atrial Fibrillation; Type 2 Diabetes Mellitus, Diagnosis, Adult; Sepsis, Diagnosis, Adult; Atrial Fibrillation; Cellulitis, Adult; Cellulitis, Adult, [id number]; Bleeding Varicose Veins Normal [facility] Inpatient Patient Summaryon 01-26-2025 Inpatient Patient Summary Inpatient Patient Summary [address] [address] Patient Discharge Instructions PERSON INFORMATION Name: TYLER SMITH Date of : 1960 Current Date: 01/26/2025 16:16:53 PHYSICIANS Admitting Physician: Ghassan Ding III, DO Primary Care Physician: DARA EISENBERG CNP Phone Number: [phone] Comment: Discharge Diagnosis: 1:Severe sepsis; 2:Cellulitis of leg; 3:KRISTINE (acute kidney injury); 4:Atrial fibrillation with RVR; 5: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; 6:Hyponatremia; 7:Noncompliance with medications; 8:Insulin dependent type 2 diabetes mellitus; halfway (current) use of insulin Condition at Discharge: [...] Blood culture Follow up: With: Address: When: [facility] [phone] With: Address: When: OZZIE DUGAN [address] [place] [address] Business (1) Within 4 weeks Comments: Call for followup appointment With: Address: When: Follow up as scheduled with [facility] With: Address: When: [facility] [address] [place] [phone] Business (1) Within 3 to 5 days Comments: Call for followup appointment With: Address: When: DARA EISENBERG [address], [place] [phone] Business (1) In 3 days 01/27/2025 Comments: Call Dr for diagnosis based follow up In the event that this physician does not participate in your insurance network, please consult with your insurance company to find a nearby participating provider. Comment: LUIS Minor EARL, have received the attached patient education materials/instruction s and have verbalized understanding: Patient Signature Date Clinican/Nurse Signature Date HERE ARE THE MEDICATION CHANGES THAT OCCURRED DURING YOUR HOSPITAL STAY New Medications [facility], [address] [place] [id number], [phone] cephalexin (cephalexin 500 mg Cap) 1 Capsules [...] Dose: ____ C (more content not included)... [facility] Interdisciplinary Note - Giovany e Manageron 01-26-2025 Interdisciplinary Note - Hot Mix Operator Interdisciplinary Note - Hot Mix Operator Chart reviewed and patient previously rounded on by KALI Carson. Per Careport portal multiple referrals were put into [facility] for HHC and [facility] was the only one able to accept [...] for discharge needs. IMM copy at bedside. [facility] Comment on above: Result Comment: Elec tronically Signed By: Sarah Snyder.br\Date and Time Signed: 01/26/25 11:38 EDT PTon 01-26-2025 INR Coag (PPP) [Relative time] 0.97 {INR} Invalid Interpretation Code [facility] Comment on above: Result Comment: INR results are specifically intended to assess patients stabilized on long-term Anticoagulation therapy suggested INR???s ???Less Intensive Anticoagulation??? 2.0 ??? 3.0 Conventional Range 3.0 ??? 4.5 Performed By: #### 2 [id number] #### [facility] [address] [place] [address] PT 10.9 second(s) Normal 9.4-12.5 [facility] Comment on above: Result Comment: 15 [...] reagent and instrumentation as [facility]. Currently there are no coagulation studies available worldwide for children to 14 days, and no normal ranges. Performed By: #### 2 [id number] #### [facility] [address] [place] [address] eGFRon 01-26-2025 eGFR 97 mL/min/1.73 m2 Normal >=59 [facility] Comment on above: Performed By: #### 1 [id number] #### [facility] [address] [place] [address] CBC w/ Auto Diffon 5 Basophil Absolute 0.1 E9/L Normal 0.0-0.2 [facility] Comment on above: Performed By: #### 2 [id number] #### [facility] [address] [place] [address] Basophils/100 WBC (Bld) 0.9 % Normal 0.0-2.0 [facility] Comment on above: Performed By: #### 2 [id number] #### [facility] [address] [place] [address] Eos Absolute 0.1 E9/L Normal 0.0-0.5 [facility] Comment on above: Performed By: #### 2 [id number] #### [facility] [address] [place] [address] Eosinophils/100 WBC (Bld) 0.9 % Normal 0.0-8.0 [facility] Comment on above: Performed By: #### 2 [id number] #### [facility] [address] [place] [address] Erythrocyte distribution width (RBC) [Ratio] 17.1 % High 10.9-14.2 [facility] Comment on above: Performed By: #### 2 [id number] #### [facility] [address] [place] [address] Hematocrit (Bld) [Volume fraction] 38.3 % Normal 37.7-49.0 [facility] Comment on above: Performed By: #### 2 [id number] #### [facility] [address] [place] [address] Hemoglobin (Bld) [Mass/Vol] 13.2 g/dL Low 13.5-17.5 [facility] Comment on above: Performed By: #### 2 [id number] #### [facility] [address] [place] [address] Lymph Absolute 1.1 E9/L Normal 1.0-4.0 [facility] Comment on above: Performed By: #### 2 [id number] #### [facility] [address] [place] [address] Lymphocytes/100 WBC (Bld) 9.3 % Low 14.0-50.0 [facility] Comment on above: Performed By: #### 2 242163 #### [facility] [address] [place] [address] MCH (RBC) [Entitic mass] 31.6 pg Normal 27.0-34.0 [facility] Comment on above: Performed By: #### 2 693446 #### [facility] [address] [place] [address] MCHC (RBC) [Mass/Vol] 34.5 g/dL Normal 31.4-36.0 [facility] Comment on above: Performed By: #### 2 814789 #### [facility] [address] [place] [address] MCV (RBC) [Entitic vol] 91.5 fL Normal 80.0-100.0 [facility] Comment on above: Performed By: #### 2 159786 #### [facility] [address] [place] [address] [place] Absolute 1.2 E9/L High 0.2-1.0 [facility] Comment on above: Performed By: #### 2 750624 #### [facility] [address] [place] [address] Monocytes/100 WBC (Bld) 10.0 % Normal 4.0-14.0 [facility] Comment on above: Performed By: #### 2 969416 #### [facility] [address] [place] [address] Neutro Absolute 9.1 E9/L High 2.0-7.5 [facility] Comment on above: Performed By: #### 2 360676 #### [facility] [address] [place] [address] Neutro Auto 78.9 % High 36.0-75.0 [facility] Comment on above: Performed By: #### 2 455581 #### [facility] [address] [place] [address] Platelet 228.0 E9/L Normal 150.0-500.0 [facility] Comment on above: Performed By: #### 2 906998 #### [facility] [address] [place] [address] Platelet mean volume (Bld) [Entitic vol] 8.9 fL Normal 6.4-10.8 [facility] Comment on above: Performed By: #### 2 534622 #### [facility] [address] [place] [address] RBC 4.2 E12/L Low 4.3-5.9 [facility] Comment on above: Performed By: #### 2 333201 #### [facility] [address] [place] [address] WBC 11.5 E9/L High 4.0-11.0 [facility] Comment on above: Performed By: #### 2 849381 #### [facility] [address] [place] [address] CKon 01-25-2025 Total CK 64 Int._Unit/L Normal 14-261 [facility] Comment on above: Performed By: #### 2 551203 #### [facility] [address] [place] [address] CMPon 01-25-2025 Albumin [Mass/Vol] 2.9 g/dL Low 3.3-5.0 [facility] Comment on above: Performed By: #### 2 251204 #### [facility] [address] [place] [address] Albumin/Globulin [Mass ratio] 1.0 {ratio} Low 1.1-2.2 [facility] Comment on above: Performed By: #### 2 773795 #### [facility] [address] [place] [address] Alk Phos 85 Int._Unit/L Normal 21-98 [facility] Comment on above: Performed By: #### 2 560515 #### [facility] [address] [place] [address] ALT 16 Int._Unit/L Normal 6-46 [facility] Comment on above: Performed By: #### 2 189894 #### [facility] [address] [place] [address] Anion gap [Moles/Vol] 11 mmol/L Normal 6-16 [facility] Comment on above: Performed By: #### 2 207778 #### [facility] [address] [place] [address] AST 12 Int._Unit/L Normal 5-43 [facility] Comment on above: Performed By: #### 2 517960 #### [facility] [address] [place] [address] Bili Total 0.5 mg/dL Normal 0.0-1.1 [facility] Comment on above: Performed By: #### 2 516441 #### [facility] [address] [place] [address] BUN/Creat Ratio 37 No Units High 10-20 [facility] Comment on above: Performed By: #### 2 347882 #### [facility] [address] [place] [address] Calcium [Mass/Vol] 8.9 mg/dL Normal 8.9-11.1 [facility] Comment on above: Performed By: #### 2 823963 #### [facility] [address] [place] [address] Chloride [Moles/Vol] 100 mmol/L Low 101-[address] [facility] Comment on above: Performed By: #### 2 970012 #### [facility] [address] [place] [address] CO2 [Moles/Vol] 25 mmol/L Normal 21-31 [facility] Comment on above: Performed By: #### 2 115186 #### [facility] [address] [place] [address] Creatinine [Mass/Vol] 1.2 mg/dL Normal 0.5-1.3 [facility] Comment on above: Performed By: #### 2 889416 #### [facility] [address] [place] [address] Globulin (S) [Mass/Vol] 2.8 g/dL Normal 1.4-4.0 [facility] Comment on above: Performed By: #### 2 465953 #### [facility] [address] [place] [address] Glucose [Mass/Vol] 345 mg/dL High 55-199 [facility] Comment on above: Performed By: #### 2 956455 #### [facility] [address] [place] [address] Potassium [Moles/Vol] 3.6 mmol/L Normal 3.5-5.3 [facility] Comment on above: Performed By: #### 2 140849 #### [facility] [address] [place] [address] Protein [Mass/Vol] 5.7 g/dL Low 6.0-7.8 [facility] Comment on above: Performed By: #### 2 134426 #### [facility] [address] [place] [address] Sodium [Moles/Vol] 132 mmol/L Low 135-145 [facility] Comment on above: Performed By: #### 2 293459 #### [facility] [address] [place] [address] Urea nitrogen [Mass/Vol] 44 mg/dL High 5-21 [facility] Comment on above: Performed By: #### 2 666566 #### [facility] [address] [place] [address] Capillary Glucose POCon 07-0 Glucose [Mass/Vol] 357 mg/dL High 55-99 [facility] Comment on above: Result Comment: Cindy GAMBOA Performed By: #### 2 [id number] #### [facility] [address] [place] [address] Glucose [Mass/Vol] 351 mg/dL High 55-99 [facility] Comment on above: Result Comment: Cindy GAMBOA Performed By: #### 2 [id number] #### [facility] [address] [place] [address] Glucose [Mass/Vol] 277 mg/dL High 55-99 [facility] Comment on above: Result Comment: Cindy GAMBOA Performed By: #### 2 [id number] #### [facility] [address] [place] [address] Glucose [Mass/Vol] 289 mg/dL High 55-99 [facility] Comment on above: Result Comment: Cindy GAMBOA Performed By: #### 2 [id number] #### [facility] [address] [place] [address] Glucose [Mass/Vol] 282 mg/dL High 55-99 [facility] Comment on above: Result Comment: Cindy GAMBOA Performed By: #### 2 [id number] #### [facility] [address] [place] [address] Glucose [Mass/Vol] 345 mg/dL High 55-99 [facility] Comment on above: Performed By: #### 2 [id number] #### [facility] [address] [place] [address] Glucose [Mass/Vol] 466 mg/dL Abnormal 55-99 [facility] Comment on above: Performed By: #### 2 [id number] #### [facility] [address] [place] [address] [id number] 01-25-2025 HbA1c (Bld) [Mass fraction] 12.6 % High <=5.9 [facility] Comment on above: Performed By: #### 7 [id number] #### [facility] [address] [place] [address] Interdisciplinary Note - Giovany e Manageron 01-25-2025 Interdisciplinary Note - Hot Mix Operator Interdisciplinary Note - Hot Mix Operator SW spoke with patient in room. No family in room. Patient is alert and oriented and participates in discharge planning. Patient is from home lives with friend Sam. Dr. Ding is following, see notes, saw patient earlier today. Patient was admitted on 01/24/25 , dx with sepsis. Has a consult with Glove Operator. Patient verified PCP, insurance and DME, FWW and w/c. 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 No family in room. Patient is alert and oriented and participates in discharge planning. Patient is from home lives with friend Sam. Dr. Ding is following, see notes, saw patient earlier today. Patient was admitted on 01/24/25 , dx with sepsis. Has a consult with Glove Operator. Patient verified PCP, insurance and DME, FWW [...] updated, and SW contact information provided. Normal [facility] Comment on above: Result Comment: Elec tronically Signed By: Yamileth Cali\.br\Date and Time Signed: 01/25/25 10:44 EDT PTon 01-25-2025 INR Coag (PPP) [Relative time] 1.00 {INR} Invalid Interpretation Code [facility] Comment on above: Result Comment: INR results are specifically intended to assess patients stabilized on long-term Anticoagulation therapy suggested INR???s ???Less Intensive Anticoagulation??? 2.0 ??? 3.0 Conventional Range 3.0 ??? 4.5 Performed By: #### 2 [id number] #### [facility] [address] [place] [address] PT 11.2 second(s) Normal 9.4-12.5 [facility] Comment on above: Result Comment: 15 [...] reagent and instrumentation as [facility]. Currently there are no coagulation studies available worldwide for children to 14 days, and no normal ranges. Performed By: #### 2 [id number] #### [facility] [address] [place] [address] [facility] eGFR 67 mL/min/1.73 m2 Normal >=59 [facility] Comment on above: Performed By: #### 1 [id number] #### [facility] [address] [place] [address] [facility]2025 Anion gap [Moles/Vol] 12 mmol/L Normal 6-16 [facility] Comment on above: Performed By: #### 2 348287 #### [facility] [address] [place] [address] BUN/Creat Ratio 41 No Units High 10-20 [facility] Comment on above: Performed By: #### 2 727710 #### [facility] [address] [place] [address] Calcium [Mass/Vol] 8.7 mg/dL Low 8.9-11.1 [facility] Comment on above: Performed By: #### 2 229591 #### [facility] [address] [place] [address] Chloride [Moles/Vol] 95 mmol/L Low 101-[address] [facility] Comment on above: Performed By: #### 2 639885 #### [facility] [address] [place] [address] CO2 [Moles/Vol] 25 mmol/L Normal 21-31 [facility] Comment on above: Performed By: #### 2 969999 #### [facility] [address] [place] [address] Creatinine [Mass/Vol] 1.4 mg/dL High 0.5-1.3 [facility] Comment on above: Performed By: #### 2 817531 #### [facility] [address] [place] [address] Glucose [Mass/Vol] 431 mg/dL High 55-199 [facility] Comment on above: Performed By: #### 2 [id number] #### [facility] [address] [place] [address] Potassium [Moles/Vol] 3.8 mmol/L Normal 3.5-5.3 [facility] Comment on above: Performed By: #### 2 769711 #### [facility] [address] [place] [address] Sodium [Moles/Vol] 128 mmol/L Low 135-145 [facility] Comment on above: Performed By: #### 2 626551 #### [facility] [address] [place] [address] Urea nitrogen [Mass/Vol] 57 mg/dL High 5-21 [facility] Comment on above: Performed By: #### 2 928798 #### [facility] [address] [place] [address] CBC w/ Auto Diffon 5 Basophil Absolute 0.1 E9/L Normal 0.0-0.2 [facility] Comment on above: Performed By: #### 2 467183 #### [facility] [address] [place] [address] Basophils/100 WBC (Bld) 0.5 % Normal 0.0-2.0 [facility] Comment on above: Performed By: #### 2 140113 #### [facility] [address] [place] [address] Eos Absolute 0.1 E9/L Normal 0.0-0.5 [facility] Comment on above: Performed By: #### 2 379242 #### [facility] [address] [place] [address] Eosinophils/100 WBC (Bld) 0.5 % Normal 0.0-8.0 [facility] Comment on above: Performed By: #### 2 [id number] #### [facility] [address] [place] [address] Erythrocyte distribution width (RBC) [Ratio] 17.1 % High 10.9-14.2 [facility] Comment on above: Performed By: #### 2 985219 #### [facility] [address] [place] [address] Hematocrit (Bld) [Volume fraction] 43.6 % Normal 37.7-49.0 [facility] Comment on above: Performed By: #### 2 [id number] #### [facility] [address] [place] [address] Hemoglobin (Bld) [Mass/Vol] 14.6 g/dL Normal 13.5-17.5 [facility] Comment on above: Performed By: #### 2 641788 #### [facility] [address] [place] [address] Lymph Absolute 1.1 E9/L Normal 1.0-4.0 [facility] Comment on above: Performed By: #### 2 382891 #### [facility] [address] [place] [address] Lymphocytes/100 WBC (Bld) 6.1 % Low 14.0-50.0 [facility] Comment on above: Performed By: #### 2 161828 #### [facility] [address] [place] [address] MCH (RBC) [Entitic mass] 30.8 pg Normal 27.0-34.0 [facility] Comment on above: Performed By: #### 2 515405 #### [facility] [address] [place] [address] MCHC (RBC) [Mass/Vol] 33.6 g/dL Normal 31.4-36.0 [facility] Comment on above: Performed By: #### 2 443765 #### [facility] [address] [place] [address] MCV (RBC) [Entitic vol] 91.8 fL Normal 80.0-100.0 [facility] Comment on above: Performed By: #### 2 727710 #### [facility] [address] [place] [address] [place] Absolute 1.3 E9/L High 0.2-1.0 [facility] Comment on above: Performed By: #### 2 765172 #### [facility] [address] [place] [address] Monocytes/100 WBC (Bld) 7.6 % Normal 4.0-14.0 [facility] Comment on above: Performed By: #### 2 468554 #### [facility] [address] [place] [address] Neutro Absolute 14.8 E9/L High 2.0-7.5 [facility] Comment on above: Performed By: #### 2 376322 #### [facility] [address] [place] [address] Neutro Auto 85.3 % High 36.0-75.0 [facility] Comment on above: Performed By: #### 2 377322 #### [facility] [address] [place] [address] Platelet 269.0 E9/L Normal 150.0-500.0 [facility] Comment on above: Performed By: #### 2 158274 #### [facility] [address] [place] [address] Platelet mean volume (Bld) [Entitic vol] 8.7 fL Normal 6.4-10.8 [facility] Comment on above: Performed By: #### 2 543390 #### [facility] [address] [place] [address] RBC 4.8 E12/L Normal 4.3-5.9 [facility] Comment on above: Performed By: #### 2 723756 #### [facility] [address] [place] [address] WBC 17.4 E9/L High 4.0-11.0 [facility] Comment on above: Performed By: #### 2 426626 #### [facility] [address] [place] [address] Capillary Glucose POCon Glucose [Mass/Vol] 490 mg/dL Abnormal 55-99 [facility] Comment on above: Result Comment: Cindy calle RN/ Performed By: #### 2 [id number] #### [facility] [address] [place] [address] ED Clinical Summaryon 2024 ED Clinical Summary ED Clinical Summary [address] [address] ED Clinical Summary Person Information Name: TYLER SMITH/[facility] Age: 64 Years : 1960 Sex: Male Language: Ivorian PCP: DARA EISENBERG CNP Marital Status: Single Phone: [phone] Visit Id: Visit Reason: Medical problem - major; VERICOSE VEIN TOURNIQUET Speciality: Acuity: 2 Enc Type: Inpatient Med Service: Medical Arrival: 01/24/2025 11:29:33 Discharge: LOS: 000 07:25 Checkin: 01/24/2025 11:29:33 Checkout: 01/24/2025 18:54:25 Dispo Type: Admitted as IP to this [facility] EVENTS: Event Name Event Status Request Date/Time [...] 18:23:37 Patient Care Request 01/24/2025 18:23:37 ADDRESS: [address] [place] [address] PHYS DOC NOTES: MEDICAL INFORMATION: Prescriptions Given: New Medications [id number], [address], [place] [id number], [phone] doxycycline (doxycycline hyclate 100 mg Cap) 1 Capsules By Mouth 2 times a day for 7 Days. Refills: 0. PATIENT EDUCATION INFORMATION: Instructions: Cellulitis, Adult, [id number]; Bleeding Varicose Veins Follow up: With: Address: When: DARA EISENBERG [address], [address] [place] [phone] Business (1) In 3 days 01/27/2025 Comments: Call Dr for diagnosis based follow up DIAGNOSIS: 1:Severe sepsis; 2:Cellulitis of leg; 3:KRISTINE (acute kidney injury); 4:Atrial fibrillation with RVR; 5: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; 6:Hyponatremia; 7:Noncompliance with medications Normal [facility] ED Note-Physicianon 01-25-20 ED Note-Physician ED [...] that he is not having any symptoms. Bernice did report 2 tourniquets on the lower [...] of the patient. Sepsis Data [x] Patient's [place] body weight was considered in sepsis fluid [...] other nonco (more content not included)... Normal [facility] Comment on above: Result Comment: Elec tronically Signed By: Puneet Jung PA-C\.br\Date and Time Signed: 01/24/25 13:02 EDT\.br\Electronically Co-Signed By: Puneet Jung PA-C\.br\Date and Time Co-Signed: 01/24/25 15:25 EDT\.br\Electronically Co-Signed By: Puneet Jung PA-C\.br\Date and Time Co-Signed: 01/24/25 16:27 EDT\.br\Electronically Co-Signed By: Manuel Fletcher M.D.\.br\Date and Time Co-Signed: 01/24/25 18:08 EDT ED Patient Summaryon 025 ED Patient Summary ED Patient Summary [place] [id number] Patient Discharge Instructions Person Information Name: TYLER SMITH Age: 64 Years Arrival Date: 01/24/2025 11:29:33 Discharge Diagnosis: 1:Severe sepsis; 2:Cellulitis of leg; 3:KRISTINE (acute kidney injury); 4:Atrial fibrillation with RVR; 5: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; 6:Hyponatremia; 7:Noncompliance with medications Primary Care Physician: DARA EISENBERG CNP Provider Information Primary Provider: Manuel Fletcher M.D. Advanced Windshield Repair Technician:Puneet Jung PA-C The exam and treatment you received in the Emergency Department were for an urgent problem and are not intended as complete care. It is important that you follow up with a doctor, nurse practitioner, or physician???s health center assistant for ongoing care. If your symptoms become worse or you do not improve as expected and you are unable to reach your usual health care provider, you should return to the Emergency Department. We are available 24 hours a day. TYLER SMITH has been given the following list of patient education materials, prescriptions and follow-up instructions: Follow-up Instructions: With: Address: When: DARA FAINA [address], [place] [phone] Business (1) In 3 days 01/27/2025 Comments: Call Dr for diagnosis based follow up In the event that this physician does not participate in your insurance network, please consult with your insurance company to find a nearby participating provider. Patient Education Materials: Cellulitis, Adult, Molw-ir-Jtzk; Bleeding Varicose Veins A MESSAGE TO ALL PATIENTS REGARDING OPIOIDS PRESCRIPTION OPIOIDS: WHAT YOU NEED TO KNOW Prescription opioids can be used to help relieve ygqqtgar-px-lqcqoo pain and are often prescribed following a [...] toilet, f (more content not included)... Normal [facility] Lactic Acidon 01-24-2025 Lactic Acid Lvl 1.0 mmol/L Normal 0.5-2.2 [facility] Comment on above: Performed By: #### 2 [id number] #### [facility] [address] [place] [address] PT & PTTon 01-24-2025 INR Coag (PPP) [Relative time] 1.03 {INR} Invalid Interpretation Code [facility] Comment on above: Result Comment: INR results are specifically intended to assess patients stabilized on long-term Anticoagulation therapy suggested INR???s ???Less Intensive Anticoagulation??? 2.0 ??? 3.0 Conventional Range 3.0 ??? 4.5 Performed By: #### 1 [id number] #### [facility] [address] [place] [address] PT 11.5 second(s) Normal 9.4-12.5 [facility] Comment on above: Result Comment: 15 [...] were obtained from a study by everardo Ortiz prepared from 1437 samples obtained at 7 different centers using the same coagulation reagent and instrumentation as [facility]. Currently there are no coagulation studies available worldwide for children to 14 days, and no normal ranges. Performed By: #### 1 [id number] #### [facility] [address] [place] [address] PTT 27.7 second(s) Normal 25.1-36.5 [facility] Comment on above: Result Comment: Para meter 15 days - 4 weeks 1 - 5 months 6 - 11 months 1 - 5 years 6 - 10 years 11 - 17 years PTT Mean: 35.4 (27.6-45.6) Mean: 33.5 (24.8-40.7) Mean: 32.4 (25.1-40.7) Mean: 31.6 (24.0-39.2) Mean: 31.6 (26.9-38.7) Mean: 31.0 (24.6-38.4) Pediatric Reference ranges were obtained from a study by everardo Ortiz prepared from 1437 samples obtained at 7 different centers using the same coagulation reagent and instrumentation as [facility]. Currently there are no coagulation studies available worldwide for children to 14 days, and no normal ranges. Heparin therapeutic range (represented by Anti-Factor Xa activity of 0.2 - 0.4 U/mL) corresponds to PTT of 56.6 - 109.0 sec. Performed By: #### 1 [id number] #### [facility] [address] [place] [address] Pre-Arrival Noteon Pre-Arrival Note Pre-Arrival Note Pre-Arrival Summary Name: , Current Date: 01/24/2025 11:30:22 EDT Gender: Date of : Age: Pre-Arrival Type: EMS ETA: 01/24/2025 11:50:00 EDT Primary Care Physician: Presenting Problem: varicose vein tourniquet Pre-Arrival User: [address] Referring Source: Location: [place] Completion Date/Time: 01/24/2025 11:20:00 [facility] Emergency Department Pre-Hospital Report Form Vital Signs: Pre-Hospital Report: Treatment in Route: Response to Treatment: Misc. Issues: Normal [facility] Procalcitoninon 01-24-2025 Procalcitonin .09 ng/mL Normal .00-.50 [facility] Comment on above: Result Comment: <0.5 ng/mL [...] to 24 hours. Performed By: #### 2 [id number] #### [facility] [address] [place] [address] Troponin 0 Hr.on 01-24-2025 Troponin HS 4.60 pg/mL Low 15.90-38.40 [facility] Comment on above: Result Comment: The 95% CI (Confidence Interval) PPV (Positive Predictive Value) for myocardial infarction in females is 38 pg/mL, in males 51 pg/mL. The results should be used in conjunction with clinical conditions of myocardial infarction. (Access High Sensitivity Troponin I Instructions For Use, Charli [place], February 2018) Performed By: #### 1 [id number] #### [facility] [address] [place] [address] UA with Cult Rflxon 01-25-20 25 Color (U) Light-Yellow Normal Yellow [facility] Comment on above: Result Comment: Micr oscopic readings are only performed on those samples that meet specific criteria set forth by [facility]. Performed By: #### 4 [id number] #### [facility] [address] [place] [address] Ketones Ql (U) Negative Normal Negative [facility] Comment on above: Performed By: #### 4 [id number] #### [facility] [address] [place] [address] UA Blood 1+ mg/dL Abnormal Negative [facility] Comment on above: Performed By: #### 4 [id number] #### [facility] [address] [place] [address] UA Clarity Clear Normal Clear [facility] Comment on above: Performed By: #### 4 [id number] #### [facility] [address] [place] [address] UA Glucose 4+ mg/dL Abnormal Negative [facility] Comment on above: Performed By: #### 4 [id number] #### [facility] [address] [place] [address] UA Leuk Est Negative Normal Negative [facility] Comment on above: Performed By: #### 4 [id number] #### [facility] [address] [place] [address] UA Mucous Trace Normal Negative [facility] Comment on above: Performed By: #### 4 [id number] #### [facility] [address] [place] [address] UA Nitrite Negative Normal Negative [facility] Comment on above: Performed By: #### 4 [id number] #### [facility] [address] [place] [address] UA pH 5.0 Invalid Interpretation Code 5.0-9.0 [facility] Comment on above: Performed By: #### 4 [id number] #### [facility] [address] [place] [address] UA Protein Negative Normal Negative [facility] Comment on above: Performed By: #### 4 [id number] #### [facility] [address] [place] [address] UA RBC 4-20 Abnormal 0-3 [facility] Comment on above: Performed By: #### 4 [id number] #### [facility] [address] [place] [address] UA Spec Grav 1.020 Invalid Interpretation Code 1.005-1.030 [facility] Comment on above: Performed By: #### 4 [id number] #### [facility] [address] [place] [address] UA Urobilinogen Negative Normal Negative [facility] Comment on above: Performed By: #### 4 [id number] #### [facility] [address] [place] [address] UA WBC 0-5 Normal 0-5 [facility] Comment on above: Performed By: #### 4 [id number] #### [facility] [address] [place] [address] Urobilinogen (U) [Mass/Vol] Negative Normal Negative [facility] Comment on above: Performed By: #### 4 [id number] #### [facility] [address] [place] [address] UA Spec Desc Clean Catch Normal [facility] Comment on above: Performed By: #### 4 [id number] #### [facility] [address] [place] [address] XR Chest 2 Viewson XR Chest 2 [...] Krishna Ray MD Transcribed by: UMU Technologist: ROBERTO Ren [facility] eGFRon 01-24-2025 eGFR 55 mL/min/1.73 m2 Low >=59 [facility] Comment on above: Performed By: #### 1 [id number] #### [facility] [address] [place] [address] HbA1c HPLC (Bld) [Mass fract ion]on 11-05-2024 HbA1c (Bld) [Mass fraction] 10.1 % [facility] CBC WITH AUTO DIFFERENTIALon 09-09-2024 Basophils (Bld) [#/Vol] 0.05 10*3/uL Normal 0.00-0.20 [facility] Comment on above: Performed By: #### L [id number] ####[facility] (BEAKER)[address] [place] [address] Basophils/100 WBC (Bld) 0.6 % Normal 0.0-1.0 [facility] Comment on above: Performed By: #### L [id number] ####[facility] (BEAKER)[address] [place] [address] Eosinophils (Bld) [#/Vol] 0.43 10*3/uL Normal 0.00-0.50 [facility] Comment on above: Performed By: #### L [id number] ####[facility] (BEAKER)[address] [place] [address] Eosinophils/100 WBC (Bld) 5.0 % Normal 0.0-6.0 [facility] Comment on above: Performed By: #### L [id number] ####[facility] [place] [address] Erythrocyte distribution width (RBC) [Ratio] 15.1 % High 11.5-15.0 [facility] Comment on above: Performed By: #### L [id number] ####[facility] ([facility])[address] [place] [address] ERYTHROCYTE MEAN CORPUSCULAR HEMOGLOBIN CONCENTRATION (G/DL) BY AUTOMATED 31.1 g/dL Low 32.0-35.0 [facility] Comment on above: Performed By: #### L [id number] ####[facility] [place] [address] Hematocrit (Bld) [Volume fraction] 48.8 % Normal 39.0-55.0 [facility] Comment on above: Performed By: #### L [id number] ####[facility] (BEAKER)[address] [place] [address] Hemoglobin (Bld) [Mass/Vol] 15.2 g/dL Normal 13.0-17.0 [facility] Comment on above: Performed By: #### L [id number] ####[facility] [place] [address] Immature granulocytes (Bld) [#/Vol] 0.05 10*3/uL Normal 0.00-0.20 [facility] Comment on above: Performed By: #### L [id number] ####[facility] (BEAKER)[address] [place] [address] Immature granulocytes/100 WBC (Bld) 0.6 % Normal 0.0-1.0 [facility] Comment on above: Performed By: #### L [id number] ####[facility] ([facility] [place] [address] Lymphocytes (Bld) [#/Vol] 1.59 10*3/uL Normal 1.20-4.00 [facility] Comment on above: Performed By: #### L [id number] ####[facility] ([facility])[address] [place] [address] Lymphocytes/100 WBC (Bld) 18.5 % Low 20.0-45.0 [facility] Comment on above: Performed By: #### L [id number] ####[facility] ([facility])[address] [place] [address] MCH (RBC) [Entitic mass] 28.8 pg Normal 27.0-33.0 [facility] Comment on above: Performed By: #### L [id number] ####[facility] ([facility])[address] [place] [address] MCV (RBC) [Entitic vol] 92.6 fL Normal 82.0-98.0 [facility] Comment on above: Performed By: #### L [id number] ####[facility] ([facility])[address] [place] [address] Monocytes (Bld) [#/Vol] 0.90 10*3/uL Normal 0.10-1.00 [facility] Comment on above: Performed By: #### L [id number] ####[facility] [place] [address] Monocytes/100 WBC (Bld) 10.5 % Normal 5.0-12.0 [facility] Comment on above: Performed By: #### L [id number] ####[facility] [place] [address] Neutrophils (Bld) [#/Vol] 5.56 10*3/uL Normal 1.60-7.60 [facility] Comment on above: Performed By: #### L [id number] ####[facility] ([facility] [place] [address] Neutrophils/100 WBC (Bld) 64.8 % Normal 40.0-72.0 [facility] Comment on above: Performed By: #### L [id number] ####[facility] ([facility])[address] [place] [address] NRBC (PER 100 WBCS) BY AUTOMATED COUNT 0.0 % Normal 0 [facility] Comment on above: Performed By: #### L [id number] ####[facility] ([facility])[address] [place] [address] PLATELETS (10*3/UL) IN BLOOD AUTOMATED COUNT 208 10*3/uL Normal 150-400 [facility] Comment on above: Performed By: #### L [id number] ####[facility] ([facility])[address] [place] [address] RBC (Bld) [#/Vol] 5.27 10*6/uL Normal 4.20-5.70 [facility] Comment on above: Performed By: #### L [id number] ####[facility] ([facility])[address] [place] [address] WBC (Bld) [#/Vol] 8.58 10*3/uL Normal 4.00-10.60 [facility] Comment on above: Performed By: #### L [id number] ####[facility] ([facility])[address] [place] [address] DSon 09-09-2024 DS Normal [facility] MAGNESIUMon 09-09-2024 Magnesium [Mass/Vol] 1.7 mg/dL Low 1.9-2.7 [facility] Comment on above: Performed By: #### L [id number] ####[facility] [place] [address] PHOSPHORUSon 09-09-2024 Magnesium [Mass/Vol] 3.2 mg/dL Normal 2.5-5.0 [facility] Comment on above: Performed By: #### L [id number] ####[facility] ([facility] [place] [address] POCT GLUCOSE METER UNSOLICIT ED RESULTSon 09-09-2024 Glucose [Mass/Vol] 114 mg/dL High 70-105 [facility] Comment on above: Order Comment: Waive d Testing in the ED is performed under the ED CLIA certificate #[id number]. Result Comment: ndub ois3 Performed By: #### L [id number] ####[facility] ([facility] [place] [address] 30on 09-08-2024 30 Normal [facility] 30 Normal [facility] CBC WITH AUTO DIFFERENTIALon 09-08-2024 Basophils (Bld) [#/Vol] 0.06 10*3/uL Normal 0.00-0.20 [facility] Comment on above: Performed By: #### L [id number] ####[facility] ([facility] [place] [address] Basophils/100 WBC (Bld) 0.8 % Normal 0.0-1.0 [facility] Comment on above: Performed By: #### L [id number] ####[facility] ([facility] [place] [address] Eosinophils (Bld) [#/Vol] 0.43 10*3/uL Normal 0.00-0.50 [facility] Comment on above: Performed By: #### L [id number] ####[facility] ([facility] [place] [address] Eosinophils/100 WBC (Bld) 5.5 % Normal 0.0-6.0 [facility] Comment on above: Performed By: #### L [id number] ####[facility] ([facility] [place] [address] Erythrocyte distribution width (RBC) [Ratio] 15.2 % High 11.5-15.0 [facility] Comment on above: Performed By: #### L [id number] ####[facility] (BEAKER)[address] [place] [address] ERYTHROCYTE MEAN CORPUSCULAR HEMOGLOBIN CONCENTRATION (G/DL) BY AUTOMATED 30.8 g/dL Low 32.0-35.0 [facility] Comment on above: Performed By: #### L [id number] ####[facility] (BEAKER)[address] [place] [address] Hematocrit (Bld) [Volume fraction] 45.4 % Normal 39.0-55.0 [facility] Comment on above: Performed By: #### L [id number] ####[facility] ([facility])[address] [place] [address] Hemoglobin (Bld) [Mass/Vol] 14.0 g/dL Normal 13.0-17.0 [facility] Comment on above: Performed By: #### L [id number] ####[facility] (BEAKER)[address] [place] [address] Immature granulocytes (Bld) [#/Vol] 0.03 10*3/uL Normal 0.00-0.20 [facility] Comment on above: Performed By: #### L [id number] ####[facility] (BEAKER)[address] [place] [address] Immature granulocytes/100 WBC (Bld) 0.4 % Normal 0.0-1.0 [facility] Comment on above: Performed By: #### L [id number] ####[facility] (BEAKER)[address] [place] [address] Lymphocytes (Bld) [#/Vol] 1.82 10*3/uL Normal 1.20-4.00 [facility] Comment on above: Performed By: #### L [id number] ####[facility] (BEAKER)[address] [place] [address] Lymphocytes/100 WBC (Bld) 23.2 % Normal 20.0-45.0 [facility] Comment on above: Performed By: #### L [id number] ####[facility] (BEAKER)[address] [place] [address] MCH (RBC) [Entitic mass] 29.1 pg Normal 27.0-33.0 [facility] Comment on above: Performed By: #### L [id number] ####[facility] (BEAKER)[address] [place] [address] MCV (RBC) [Entitic vol] 94.4 fL Normal 82.0-98.0 [facility] Comment on above: Performed By: #### L [id number] ####[facility] (BEAKER)[address] [place] [address] Monocytes (Bld) [#/Vol] 0.88 10*3/uL Normal 0.10-1.00 [facility] Comment on above: Performed By: #### L [id number] ####[facility] (BEAKER)[address] [place] [address] Monocytes/100 WBC (Bld) 11.2 % Normal 5.0-12.0 [facility] Comment on above: Performed By: #### L [id number] ####[facility] (BEAKER)[address] [place] [address] Neutrophils (Bld) [#/Vol] 4.62 10*3/uL Normal 1.60-7.60 [facility] Comment on above: Performed By: #### L [id number] ####[facility] (BEAKER)[address] [place] [address] Neutrophils/100 WBC (Bld) 58.9 % Normal 40.0-72.0 [facility] Comment on above: Performed By: #### L [id number] ####[facility] (BEAKER)[address] [place] [address] NRBC (PER 100 WBCS) BY AUTOMATED COUNT 0.0 % Normal 0 [facility] Comment on above: Performed By: #### L [id number] ####[facility] (BEAKER)[address] [place] [address] PLATELETS (10*3/UL) IN BLOOD AUTOMATED COUNT 231 10*3/uL Normal 150-400 [facility] Comment on above: Performed By: #### L [id number] ####[facility] ([facility])[address] [place] [address] RBC (Bld) [#/Vol] 4.81 10*6/uL Normal 4.20-5.70 [facility] Comment on above: Performed By: #### L [id number] ####[facility] ([facility])[address] [place] [address] WBC (Bld) [#/Vol] 7.84 10*3/uL Normal 4.00-10.60 [facility] Comment on above: Performed By: #### L [id number] ####[facility] ([facility])[address] [place] [address] MAGNESIUMon 09-08-2024 Magnesium [Mass/Vol] 1.6 mg/dL Low 1.9-2.7 [facility] Comment on above: Performed By: #### L [id number] ####[facility] ([facility])[address] [place] [address] NURSNOTEon 09-08-2024 NURSNOTE Normal [facility] PHOSPHORUSon 09-08-2024 Magnesium [Mass/Vol] 3.4 mg/dL Normal 2.5-5.0 [facility] Comment on above: Performed By: #### L [id number] ####[facility] ([facility])[address] [place] [address] POCT GLUCOSE METER UNSOLICIT ED RESULTSon 09-08-2024 Glucose [Mass/Vol] 244 mg/dL High 70-105 [facility] Comment on above: Order Comment: Waive d Testing in the ED is performed under the ED CLIA certificate #[id number]. Result Comment: droc kol Performed By: #### L [id number] ####[facility] ([facility])[address] [place] [address] Glucose [Mass/Vol] 165 mg/dL High 70-105 [facility] Comment on above: Order Comment: Waive d Testing in the ED is performed under the ED CLIA certificate #[id number]. Result Comment: ndub ois3 Performed By: #### L [id number] ####[facility] (BEAKER)[address] [place] [address] Glucose [Mass/Vol] 110 mg/dL High 70-105 [facility] Comment on above: Order Comment: Waive d Testing in the ED is performed under the ED CLIA certificate #[id number]. Result Comment: ndub ois3 Performed By: #### L [id number] ####[facility] ([facility])[address] [place] [address] Glucose [Mass/Vol] 157 mg/dL High 70-105 [facility] Comment on above: Order Comment: Waive d Testing in the ED is performed under the ED CLIA certificate #[id number]. Result Comment: ndub ois3 Performed By: #### L [id number] ####[facility] (BEAKER)[address] [place] [address] 30on 09-07-2024 30 Normal [facility] 30 Normal [facility] BASIC METABOLIC PANELon 08-21 Anion gap [Moles/Vol] 9 mmol/L Normal 7-20 [facility] Comment on above: Performed By: #### L [id number] ####[facility] (BEAKER)[address] [place] [address] Calcium [Mass/Vol] 9.6 mg/dL Normal 8.6-10.3 [facility] Comment on above: Performed By: #### L [id number] ####[facility] (BEAKER)[address] [place] [address] Chloride [Moles/Vol] 100 mmol/L Normal 98-107 [facility] Comment on above: Performed By: #### L [id number] ####[facility] (BEAKER)[address] [place] [address] CO2 [Moles/Vol] 32 mmol/L High 21-31 [facility] Comment on above: Performed By: #### L [id number] ####[facility] ([facility])[address] [place] [address] Creatinine [Mass/Vol] 0.78 mg/dL Normal 0.70-1.30 [facility] Comment on above: Performed By: #### L [id number] ####[facility] ([facility])[address] [place] [address] GLOMERULAR FILTRATION RATE ML/MIN/1.73 SQ M.PREDICTED 99.0 mL/min/1.73m*2 Normal >60.0 [facility] Comment on above: Result Comment: [facility]???s estimated glomerular filtration rate (eGFR) will [...] of individuals. Performed By: #### L [id number] ####[facility] ([facility])[address] [place] [address] Glucose [Mass/Vol] 153 mg/dL High 70-100 [facility] Comment on above: Performed By: #### L [id number] ####[facility] HOSPITAL)[address] [place] [address] Potassium [Moles/Vol] 4.1 mmol/L Normal 3.5-5.1 [facility] Comment on above: Performed By: #### L [id number] ####[facility] ([facility])[address] [place] [address] Sodium [Moles/Vol] 137 mmol/L Normal 136-145 [facility] Comment on above: Performed By: #### L [id number] ####[facility] (BEAKER)[address] [place] [address] Urea nitrogen [Mass/Vol] 19 mg/dL Normal 7-25 [facility] Comment on above: Performed By: #### L [id number] ####[facility] (BEAKER)[address] [place] [address] UREA NITROGEN/CREATININE (MASS RATIO) IN SER/PLAS 24.4 Normal [facility] Comment on above: Performed By: #### L [id number] ####[facility] [place] [address] CBC WITH AUTO DIFFERENTIALon 09-07-2024 Basophils (Bld) [#/Vol] 0.06 10*3/uL Normal 0.00-0.20 [facility] Comment on above: Performed By: #### L [id number] ####[facility] [place] [address] Basophils/100 WBC (Bld) 0.8 % Normal 0.0-1.0 [facility] Comment on above: Performed By: #### L [id number] ####[facility] [place] [address] Eosinophils (Bld) [#/Vol] 0.49 10*3/uL Normal 0.00-0.50 [facility] Comment on above: Performed By: #### L [id number] ####[facility] (BEAKER)[address] [place] [address] Eosinophils/100 WBC (Bld) 6.8 % High 0.0-6.0 [facility] Comment on above: Performed By: #### L [id number] ####[facility] [place] [address] Erythrocyte distribution width (RBC) [Ratio] 15.3 % High 11.5-15.0 [facility] Comment on above: Performed By: #### L [id number] ####[facility] (BE[facility]ER)[address] [place] [address] ERYTHROCYTE MEAN CORPUSCULAR HEMOGLOBIN CONCENTRATION (G/DL) BY AUTOMATED 30.9 g/dL Low 32.0-35.0 [facility] Comment on above: Performed By: #### L [id number] ####[facility] (BE[facility]ER)[address] [place] [address] Hematocrit (Bld) [Volume fraction] 45.9 % Normal 39.0-55.0 [facility] Comment on above: Performed By: #### L [id number] ####[facility] (BE[facility]ER)[address] [place] [address] Hemoglobin (Bld) [Mass/Vol] 14.2 g/dL Normal 13.0-17.0 [facility] Comment on above: Performed By: #### L [id number] ####[facility] (BE[facility]ER)[address] [place] [address] Immature granulocytes (Bld) [#/Vol] 0.04 10*3/uL Normal 0.00-0.20 [facility] Comment on above: Performed By: #### L [id number] ####[facility] (BEAKER)[address] [place] [address] Immature granulocytes/100 WBC (Bld) 0.6 % Normal 0.0-1.0 [facility] Comment on above: Performed By: #### L [id number] ####[facility] (BEAKER)[address] [place] [address] Lymphocytes (Bld) [#/Vol] 1.82 10*3/uL Normal 1.20-4.00 [facility] Comment on above: Performed By: #### L [id number] ####[facility] (BE[facility]ER)[address] [place] [address] Lymphocytes/100 WBC (Bld) 25.3 % Normal 20.0-45.0 [facility] Comment on above: Performed By: #### L [id number] ####[facility] (BEAKER)[address] [place] [address] MCH (RBC) [Entitic mass] 29.2 pg Normal 27.0-33.0 [facility] Comment on above: Performed By: #### L [id number] ####[facility] (BEAKER)[address] [place] [address] MCV (RBC) [Entitic vol] 94.4 fL Normal 82.0-98.0 [facility] Comment on above: Performed By: #### L [id number] ####[facility] (BEAKER)[address] [place], [place] [address] Monocytes (Bld) [#/Vol] 0.74 10*3/uL Normal 0.10-1.00 [facility] Comment on above: Performed By: #### L [id number] ####[facility] (BEAKER)[address] [place], [place] [address] Monocytes/100 WBC (Bld) 10.3 % Normal 5.0-12.0 [facility] Comment on above: Performed By: #### L [id number] ####[facility] (BEAKER)[address] [place], [place] [address] Neutrophils (Bld) [#/Vol] 4.04 10*3/uL Normal 1.60-7.60 [facility] Comment on above: Performed By: #### L [id number] ####[facility] (BEAKER)[address] [place], [place] [address] Neutrophils/100 WBC (Bld) 56.2 % Normal 40.0-72.0 [facility] Comment on above: Performed By: #### L [id number] ####[facility] (BEAKER)[address] [place] [address] NRBC (PER 100 WBCS) BY AUTOMATED COUNT 0.0 % Normal 0 [facility] Comment on above: Performed By: #### L [id number] ####[facility] (BEAKER)[address] [place] [address] PLATELETS (10*3/UL) IN BLOOD AUTOMATED COUNT 234 10*3/uL Normal 150-400 [facility] Comment on above: Performed By: #### L [id number] ####[facility] ([facility])[address] [place] [address] RBC (Bld) [#/Vol] 4.86 10*6/uL Normal 4.20-5.70 [facility] Comment on above: Performed By: #### L [id number] ####[facility] ([facility])[address] [place] [address] WBC (Bld) [#/Vol] 7.19 10*3/uL Normal 4.00-10.60 [facility] Comment on above: Performed By: #### L [id number] ####[facility] ([facility])[address] [place] [address] MAGNESIUMon 09-07-2024 Magnesium [Mass/Vol] 1.7 mg/dL Low 1.9-2.7 [facility] Comment on above: Performed By: #### L [id number] ####[facility] ([facility])[address] [place] [address] NURSNOTEon 09-07-2024 NURSNOTE Signed off to Ian engel RN [facility] NURSNOTE HOB up @ 40 degrees, NO c/o of pain, or SOB at this time Urinal at bedside Call light within reach IV INT'd, intact, no redness noted Pulse ox--97% O 2 cont. On pt. Per nasal cannula @ 4 L/min NC Telemetry cont. On pt [facility] NURSNOTE [facility] NURSNOTE Tried to call Elias, pt's brother, no answer, still, at this time, 3rd attempt [facility] NURSNOTE [facility] NURSNOTE Pt's family brought him a hamburger last night, and the pt. Is eating it now. Pt. Encouraged not to eat, since the hamburger has been sitting out all night. Pt. Cont. To eat burger. [facility] NURSNOTE Eyes closed resp. Easy @ 18/min Pulse ox--98% Telemetry cont. On pt Normal [facility] Orders Onlyon 09-07-2024 Orders Only [id number] Tyler Smith 1960 M Date Provider Department Center 09/07/[id number], JENN*[facility] No family history on file Normal [facility] PHOSPHORUSon 09-07-2024 Magnesium [Mass/Vol] 3.5 mg/dL Normal 2.5-5.0 [facility] Comment on above: Performed By: #### L [id number] ####[facility] ([facility])[address] [place] [address] POCT GLUCOSE METER UNSOLICIT ED RESULTSon 09-07-2024 Glucose [Mass/Vol] 200 mg/dL High 70-105 [facility] Comment on above: Order Comment: Waive d Testing in the ED is performed under the ED CLIA certificate #[id number]. Result Comment: [email or web address] kol Performed By: #### L [id number] ####[facility] (BEAKER)[address] [place] [address] Glucose [Mass/Vol] 211 mg/dL High 70-105 [facility] Comment on above: Order Comment: Waive d Testing in the ED is performed under the ED CLIA certificate #[id number]. Result Comment: [email or web address] Performed By: #### L [id number] ####[facility] ([facility]ER)[address] [place] [address] Glucose [Mass/Vol] 298 mg/dL High 70-105 [facility] Comment on above: Order Comment: Waive d Testing in the ED is performed under the ED CLIA certificate #[id number]. Result Comment: [email or web address] Performed By: #### L [id number] ####[facility] (BE[facility]ER)[address] [place] [address] Glucose [Mass/Vol] 155 mg/dL High 70-105 [facility] Comment on above: Order Comment: Waive d Testing in the ED is performed under the ED CLIA certificate #[id number]. Result Comment: [email or web address] [email or web address] Performed By: #### L [id number] ####[facility] (BEAKER)[address] [place] [address] 30on 09-06-2024 30 Normal [facility] 30 Normal [facility] BASIC METABOLIC PANELon 08-21 Anion gap [Moles/Vol] 11 mmol/L Normal 7-20 [facility] Comment on above: Performed By: #### L [id number] ####[facility] ([facility] [place] [address] Calcium [Mass/Vol] 9.8 mg/dL Normal 8.6-10.3 [facility] Comment on above: Performed By: #### L [id number] ####[facility] ([facility] [place] [address] Chloride [Moles/Vol] 98 mmol/L Normal 98-107 [facility] Comment on above: Performed By: #### L [id number] ####[facility] (BEAKER)[address] [place] [address] CO2 [Moles/Vol] 31 mmol/L Normal 21-31 [facility] Comment on above: Performed By: #### L [id number] ####[facility] (BEAKER)[address] [place] [address] Creatinine [Mass/Vol] 0.90 mg/dL Normal 0.70-1.30 [facility] Comment on above: Performed By: #### L [id number] ####[facility] (BEAKER)[address] [place] [address] GLOMERULAR FILTRATION RATE ML/MIN/1.73 SQ M.PREDICTED 94.8 mL/min/1.73m*2 Normal >60.0 [facility] Comment on above: Result Comment: [facility]???s estimated glomerular filtration rate (eGFR) will [...] of individuals. Performed By: #### L [id number] ####[facility] ([facility])[address] [place] [address] Glucose [Mass/Vol] 244 mg/dL High 70-100 [facility] Comment on above: Performed By: #### L [id number] ####[facility] ([facility])[address] [place] [address] Potassium [Moles/Vol] 3.9 mmol/L Normal 3.5-5.1 [facility] Comment on above: Performed By: #### L [id number] ####[facility] ([facility])[address] [place] [address] Sodium [Moles/Vol] 136 mmol/L Normal 136-145 [facility] Comment on above: Performed By: #### L [id number] ####[facility] ([facility])[address] [place] [address] Urea nitrogen [Mass/Vol] 18 mg/dL Normal 7-25 [facility] Comment on above: Performed By: #### L [id number] ####[facility] ([facility])[address] [place] [address] UREA NITROGEN/CREATININE (MASS RATIO) IN SER/PLAS 20.0 Normal [facility] Comment on above: Performed By: #### L [id number] ####[facility] ([facility])[address] [place] [address] CBC WITH AUTO DIFFERENTIALon 09-06-2024 Basophils (Bld) [#/Vol] 0.07 10*3/uL Normal 0.00-0.20 [facility] Comment on above: Performed By: #### L [id number] ####[facility] (BE[facility]ER)[address] [place] [address] Basophils/100 WBC (Bld) 1.0 % Normal 0.0-1.0 [facility] Comment on above: Performed By: #### L [id number] ####[facility] (BEAKER)[address] [place] [address] Eosinophils (Bld) [#/Vol] 0.40 10*3/uL Normal 0.00-0.50 [facility] Comment on above: Performed By: #### L [id number] ####[facility] (BEAKER)[address] [place] [address] Eosinophils/100 WBC (Bld) 5.9 % Normal 0.0-6.0 [facility] Comment on above: Performed By: #### L [id number] ####[facility] (BEAKER)[address] [place] [address] Erythrocyte distribution width (RBC) [Ratio] 15.2 % High 11.5-15.0 [facility] Comment on above: Performed By: #### L [id number] ####[facility] (BEAKER)[address] [place] [address] ERYTHROCYTE MEAN CORPUSCULAR HEMOGLOBIN CONCENTRATION (G/DL) BY AUTOMATED 30.7 g/dL Low 32.0-35.0 [facility] Comment on above: Performed By: #### L [id number] ####[facility] (BEAKER)[address] [place] [address] Hematocrit (Bld) [Volume fraction] 47.3 % Normal 39.0-55.0 [facility] Comment on above: Performed By: #### L [id number] ####[facility] (BEAKER)[address] [place] [address] Hemoglobin (Bld) [Mass/Vol] 14.5 g/dL Normal 13.0-17.0 [facility] Comment on above: Performed By: #### L [id number] ####[facility] (BEAKER)[address] [place] [address] Immature granulocytes (Bld) [#/Vol] 0.05 10*3/uL Normal 0.00-0.20 [facility] Comment on above: Performed By: #### L [id number] ####[facility] (BEAKER)[address] [place] [address] Immature granulocytes/100 WBC (Bld) 0.7 % Normal 0.0-1.0 [facility] Comment on above: Performed By: #### L [id number] ####[facility] (BEAKER)[address] [place] [address] Lymphocytes (Bld) [#/Vol] 1.52 10*3/uL Normal 1.20-4.00 [facility] Comment on above: Performed By: #### L [id number] ####[facility] (BEAKER)[address] [place] [address] Lymphocytes/100 WBC (Bld) 22.5 % Normal 20.0-45.0 [facility] Comment on above: Performed By: #### L [id number] ####[facility] (BEAKER)[address] [place] [address] MCH (RBC) [Entitic mass] 29.1 pg Normal 27.0-33.0 [facility] Comment on above: Performed By: #### L [id number] ####[facility] (BEAKER)[address] [place] [address] MCV (RBC) [Entitic vol] 95.0 fL Normal 82.0-98.0 [facility] Comment on above: Performed By: #### L [id number] ####[facility] (BEAKER)[address] [place] [address] Monocytes (Bld) [#/Vol] 0.74 10*3/uL Normal 0.10-1.00 [facility] Comment on above: Performed By: #### L [id number] ####[facility] (BEAKER)[address] [place] [address] Monocytes/100 WBC (Bld) 10.9 % Normal 5.0-12.0 [facility] Comment on above: Performed By: #### L [id number] ####[facility] [place] [address] Neutrophils (Bld) [#/Vol] 3.98 10*3/uL Normal 1.60-7.60 [facility] Comment on above: Performed By: #### L [id number] ####[facility] ([facility])[address] [place] [address] Neutrophils/100 WBC (Bld) 59.0 % Normal 40.0-72.0 [facility] Comment on above: Performed By: #### L [id number] ####[facility] ([facility])[address] [place] [address] NRBC (PER 100 WBCS) BY AUTOMATED COUNT 0.0 % Normal 0 [facility] Comment on above: Performed By: #### L [id number] ####[facility] ([facility])[address] [place] [address] PLATELETS (10*3/UL) IN BLOOD AUTOMATED COUNT 251 10*3/uL Normal 150-400 [facility] Comment on above: Performed By: #### L [id number] ####[facility] ([facility])[address] [place] [address] RBC (Bld) [#/Vol] 4.98 10*6/uL Normal 4.20-5.70 [facility] Comment on above: Performed By: #### L [id number] ####[facility] ([facility])[address] [place] [address] WBC (Bld) [#/Vol] 6.76 10*3/uL Normal 4.00-10.60 [facility] Comment on above: Performed By: #### L [id number] ####[facility] [place] [address] MAGNESIUMon 09-06-2024 Magnesium [Mass/Vol] 1.6 mg/dL Low 1.9-2.7 [facility] Comment on above: Performed By: #### L [id number] ####[facility] ([facility])[address] [place] [address] NURSNOTEon 09-06-2024 NURSNOTE Signed off to Ian engel RN--with bedside rounding Pt. Cont. To sit up in a chair at bedside Call light within reach Normal [facility] NURSNOTE Normal [facility] NURSNOTE Pt refused to go yeni k to bed at this time Pt. Cont. To sit up in a chair at bedside No c/o of SOB or nausea at this time Resp. Easy @ 18/min [facility] PHOSPHORUSon 09-06-2024 Magnesium [Mass/Vol] 3.4 mg/dL Normal 2.5-5.0 [facility] Comment on above: Performed By: #### L [id number] ####[facility] ([facility])[address] [place] [address] POCT GLUCOSE METER UNSOLICIT ED RESULTSon 09-06-2024 Glucose [Mass/Vol] 255 mg/dL High 70-105 [facility] Comment on above: Order Comment: Waive d Testing in the ED is performed under the ED CLIA certificate #[id number]. Result Comment: [email or web address] Performed By: #### L [id number] ####[facility] ([facility])[address] [place] [address] Glucose [Mass/Vol] 208 mg/dL High 70-105 [facility] Comment on above: Order Comment: Waive d Testing in the ED is performed under the ED CLIA certificate #[id number]. Result Comment: [email or web address] Performed By: #### L [id number] ####[facility] ([facility])[address] [place] [address] Glucose [Mass/Vol] 173 mg/dL High 70-105 [facility] Comment on above: Order Comment: Waive d Testing in the ED is performed under the ED CLIA certificate #[id number]. Result Comment: [email or web address] Performed By: #### L [id number] ####[facility] (BEAKER)[address] [place] [address] Glucose [Mass/Vol] 210 mg/dL High 70-105 [facility] Comment on above: Order Comment: Waive d Testing in the ED is performed under the ED CLIA certificate #[id number]. Result Comment: [email or web address] Performed By: #### L [id number] ####[facility] (BE[facility]ER)[address] [place] [address] BASIC METABOLIC PANELon 08-21 Anion gap [Moles/Vol] 8 mmol/L Normal 7-20 [facility] Comment on above: Performed By: #### L [id number] ####[facility] (BEAKER)[address] [place] [address] Calcium [Mass/Vol] 9.9 mg/dL Normal 8.6-10.3 [facility] Comment on above: Performed By: #### L [id number] ####[facility] (BEAKER)[address] [place] [address] Chloride [Moles/Vol] 98 mmol/L Normal 98-107 [facility] Comment on above: Performed By: #### L [id number] ####[facility] (BEAKER)[address] [place] [address] CO2 [Moles/Vol] 33 mmol/L High 21-31 [facility] Comment on above: Performed By: #### L [id number] ####[facility] (BE[facility]ER)[address] [place] [address] Creatinine [Mass/Vol] 0.90 mg/dL Normal 0.70-1.30 [facility] Comment on above: Performed By: #### L [id number] ####[facility] (BEAKER)[address] [place] [address] GLOMERULAR FILTRATION RATE ML/MIN/1.73 SQ M.PREDICTED 94.8 mL/min/1.73m*2 Normal >60.0 [facility] Comment on above: Result Comment: [facility]???s estimated glomerular filtration rate (eGFR) will [...] of individuals. Performed By: #### L [id number] ####[facility] ([facility])[address] [place] [address] Glucose [Mass/Vol] 142 mg/dL High 70-100 [facility] Comment on above: Performed By: #### L [id number] ####[facility] ([facility])[address] [place] [address] Potassium [Moles/Vol] 4.1 mmol/L Normal 3.5-5.1 [facility] Comment on above: Performed By: #### L [id number] ####[facility] ([facility])[address] [place] [address] Sodium [Moles/Vol] 135 mmol/L Low 136-145 [facility] Comment on above: Performed By: #### L [id number] ####[facility] ([facility])[address] [place] [address] Urea nitrogen [Mass/Vol] 19 mg/dL Normal 7-25 [facility] Comment on above: Performed By: #### L [id number] ####[facility] ([facility])[address] [place] [address] UREA NITROGEN/CREATININE (MASS RATIO) IN SER/PLAS 21.1 Normal [facility] Comment on above: Performed By: #### L [id number] ####[facility] ([facility])[address] [place] [address] CBC WITH AUTO DIFFERENTIALon 09-05-2024 Basophils (Bld) [#/Vol] 0.07 10*3/uL Normal 0.00-0.20 [facility] Comment on above: Performed By: #### L [id number] ####[facility] (BEAKER)[address] [place] [address] Basophils/100 WBC (Bld) 0.9 % Normal 0.0-1.0 [facility] Comment on above: Performed By: #### L [id number] ####[facility] (BEAKER)[address] [place] [address] Eosinophils (Bld) [#/Vol] 0.38 10*3/uL Normal 0.00-0.50 [facility] Comment on above: Performed By: #### L [id number] ####[facility] (BEAKER)[address] [place] [address] Eosinophils/100 WBC (Bld) 5.0 % Normal 0.0-6.0 [facility] Comment on above: Performed By: #### L [id number] ####[facility] (BEAKER)[address] [place] [address] Erythrocyte distribution width (RBC) [Ratio] 15.2 % High 11.5-15.0 [facility] Comment on above: Performed By: #### L [id number] ####[facility] (BEAKER)[address] [place] [address] ERYTHROCYTE MEAN CORPUSCULAR HEMOGLOBIN CONCENTRATION (G/DL) BY AUTOMATED 31.4 g/dL Low 32.0-35.0 [facility] Comment on above: Performed By: #### L [id number] ####[facility] (BE[facility]ER)[address] [place] [address] Hematocrit (Bld) [Volume fraction] 47.1 % Normal 39.0-55.0 [facility] Comment on above: Performed By: #### L [id number] ####[facility] (BEAKER)[address] [place] [address] Hemoglobin (Bld) [Mass/Vol] 14.8 g/dL Normal 13.0-17.0 [facility] Comment on above: Performed By: #### L [id number] ####[facility] (BE[facility]ER)[address] [place] [address] Immature granulocytes (Bld) [#/Vol] 0.06 10*3/uL Normal 0.00-0.20 [facility] Comment on above: Performed By: #### L [id number] ####[facility] [place] [address] Immature granulocytes/100 WBC (Bld) 0.8 % Normal 0.0-1.0 [facility] Comment on above: Performed By: #### L [id number] ####[facility] (BEAKER)[address] [place] [address] Lymphocytes (Bld) [#/Vol] 1.99 10*3/uL Normal 1.20-4.00 [facility] Comment on above: Performed By: #### L [id number] ####[facility] [facility] (BEAKER)[address] [place] [address] Lymphocytes/100 WBC (Bld) 26.0 % Normal 20.0-45.0 [facility] Comment on above: Performed By: #### L [id number] ####[facility] (BEAKER)[address] [place] [address] MCH (RBC) [Entitic mass] 28.8 pg Normal 27.0-33.0 [facility] Comment on above: Performed By: #### L [id number] ####[facility] (BEAKER)[address] [place] [address] MCV (RBC) [Entitic vol] 91.6 fL Normal 82.0-98.0 [facility] Comment on above: Performed By: #### L [id number] ####[facility] (BEAKER)[address] [place] [address] Monocytes (Bld) [#/Vol] 0.77 10*3/uL Normal 0.10-1.00 [facility] Comment on above: Performed By: #### L [id number] ####[facility] ([facility])[address] [place] [address] Monocytes/100 WBC (Bld) 10.1 % Normal 5.0-12.0 [facility] Comment on above: Performed By: #### L [id number] ####[facility] ([facility])[address] [place] [address] Neutrophils (Bld) [#/Vol] 4.39 10*3/uL Normal 1.60-7.60 [facility] Comment on above: Performed By: #### L [id number] ####[facility] ([facility])[address] [address] Neutrophils/100 WBC (Bld) 57.2 % Normal 40.0-72.0 [facility] Comment on above: Performed By: #### L [id number] ####[facility] ([facility])[address] [place] [address] NRBC (PER 100 WBCS) BY AUTOMATED COUNT 0.0 % Normal 0 [facility] Comment on above: Performed By: #### L [id number] ####[facility] ([facility])[address] [place] [address] PLATELETS (10*3/UL) IN BLOOD AUTOMATED COUNT 274 10*3/uL Normal 150-400 [facility] Comment on above: Performed By: #### L [id number] ####[facility] ([facility])[address] [place] [address] RBC (Bld) [#/Vol] 5.14 10*6/uL Normal 4.20-5.70 [facility] Comment on above: Performed By: #### L [id number] ####[facility] ([facility])[address] [place] [address] WBC (Bld) [#/Vol] 7.66 10*3/uL Normal 4.00-10.60 [facility] Comment on above: Performed By: #### L [id number] ####[facility] ([facility])[address] [place] [address] MAGNESIUMon 09-05-2024 Magnesium [Mass/Vol] 1.6 mg/dL Low 1.9-2.7 [facility] Comment on above: Performed By: #### L [id number] ####[facility] ([facility])[address] [place] [address] PHOSPHORUSon 09-05-2024 Magnesium [Mass/Vol] 2.8 mg/dL Normal 2.5-5.0 [facility] Comment on above: Performed By: #### L [id number] ####[facility] ([facility])[address] [place] [address] POCT GLUCOSE METER UNSOLICIT ED RESULTSon 09-05-2024 Glucose [Mass/Vol] 221 mg/dL High 70-105 [facility] Comment on above: Order Comment: Waive d Testing in the ED is performed under the ED CLIA certificate #[id number]. Result Comment: [email or web address] kol Performed By: #### L [id number] ####[facility] ([facility])[address] [place] [address] Glucose [Mass/Vol] 204 mg/dL High 70-105 [facility] Comment on above: Order Comment: Waive d Testing in the ED is performed under the ED CLIA certificate #[id number]. Result Comment: [email or web address] Performed By: #### L [id number] ####[facility] ([facility])[address] [place] [address] Glucose [Mass/Vol] 222 mg/dL High 70-105 [facility] Comment on above: Order Comment: Waive d Testing in the ED is performed under the ED CLIA certificate #[id number]. Result Comment: [email or web address] Performed By: #### L [id number] ####[facility] ([facility])[address] [place] [address] Glucose [Mass/Vol] 141 mg/dL High 70-105 [facility] Comment on above: Order Comment: Waive d Testing in the ED is performed under the ED CLIA certificate #[id number]. Result Comment: [email or web address] [email or web address] Performed By: #### L [id number] ####[facility] (BEAKER)[address] [place] [address] 30on 09-04-2024 30 Normal [facility] BASIC METABOLIC PANELon 08-21 Anion gap [Moles/Vol] 7 mmol/L Normal 7-20 [facility] Comment on above: Performed By: #### L [id number] ####[facility] [place] [address] Calcium [Mass/Vol] 9.6 mg/dL Normal 8.6-10.3 [facility] Comment on above: Performed By: #### L [id number] ####[facility] [place] [address] Chloride [Moles/Vol] 98 mmol/L Normal 98-107 [facility] Comment on above: Performed By: #### L [id number] ####[facility] (BEAKER)[address] [place] [address] CO2 [Moles/Vol] 35 mmol/L High 21-31 [facility] Comment on above: Performed By: #### L [id number] ####[facility] (BEAKER)[address] [place] [address] Creatinine [Mass/Vol] 0.88 mg/dL Normal 0.70-1.30 [facility] Comment on above: Performed By: #### L [id number] ####[facility] (BEAKER)[address] [place] [address] GLOMERULAR FILTRATION RATE ML/MIN/1.73 SQ M.PREDICTED 95.4 mL/min/1.73m*2 Normal >60.0 [facility] Comment on above: Result Comment: [facility]???s estimated glomerular filtration rate (eGFR) will [...] of individuals. Performed By: #### L [id number] ####[facility] ([facility])[address] [place] [address] Glucose [Mass/Vol] 155 mg/dL High 70-100 [facility] Comment on above: Performed By: #### L [id number] ####[facility] ([facility])[address] [place] [address] Potassium [Moles/Vol] 4.3 mmol/L Normal 3.5-5.1 [facility] Comment on above: Performed By: #### L [id number] ####[facility] ([facility])[address] [place] [address] Sodium [Moles/Vol] 136 mmol/L Normal 136-145 [facility] Comment on above: Performed By: #### L [id number] ####[facility] ([facility])[address] [place] [address] Urea nitrogen [Mass/Vol] 22 mg/dL Normal 7-25 [facility] Comment on above: Performed By: #### L [id number] ####[facility] ([facility])[address] [place] [address] UREA NITROGEN/CREATININE (MASS RATIO) IN SER/PLAS 25.0 Normal [facility] Comment on above: Performed By: #### L [id number] ####[facility] ([facility])[address] [address] CBC WITH AUTO DIFFERENTIALon 09-04-2024 Basophils (Bld) [#/Vol] 0.06 10*3/uL Normal 0.00-0.20 [facility] Comment on above: Performed By: #### L [id number] ####[facility] (BEAKER)[address] [place] [address] Basophils/100 WBC (Bld) 1.0 % Normal 0.0-1.0 [facility] Comment on above: Performed By: #### L [id number] ####[facility] (BEAKER)[address] [place] [address] Eosinophils (Bld) [#/Vol] 0.38 10*3/uL Normal 0.00-0.50 [facility] Comment on above: Performed By: #### L [id number] ####[facility] (BEAKER)[address] [place], [place] [address] Eosinophils/100 WBC (Bld) 6.1 % High 0.0-6.0 [facility] Comment on above: Performed By: #### L [id number] ####[facility] (BEAKER)[address] [place] [address] Erythrocyte distribution width (RBC) [Ratio] 15.2 % High 11.5-15.0 [facility] Comment on above: Performed By: #### L [id number] ####[facility] (BEAKER)[address] [place] [address] ERYTHROCYTE MEAN CORPUSCULAR HEMOGLOBIN CONCENTRATION (G/DL) BY AUTOMATED 30.6 g/dL Low 32.0-35.0 [facility] Comment on above: Performed By: #### L [id number] ####[facility] (BEAKER)[address] [place] [address] Hematocrit (Bld) [Volume fraction] 48.4 % Normal 39.0-55.0 [facility] Comment on above: Performed By: #### L [id number] ####[facility] (BEAKER)[address] [place] [address] Hemoglobin (Bld) [Mass/Vol] 14.8 g/dL Normal 13.0-17.0 [facility] Comment on above: Performed By: #### L [id number] ####[facility] (BEAKER)[address] [place] [address] Immature granulocytes (Bld) [#/Vol] 0.04 10*3/uL Normal 0.00-0.20 [facility] Comment on above: Performed By: #### L [id number] ####[facility] (BEAKER)[address] [place] [address] Immature granulocytes/100 WBC (Bld) 0.6 % Normal 0.0-1.0 [facility] Comment on above: Performed By: #### L [id number] ####[facility] (BEAKER)[address] [place] [address] Lymphocytes (Bld) [#/Vol] 1.68 10*3/uL Normal 1.20-4.00 [facility] Comment on above: Performed By: #### L [id number] ####[facility] (BEAKER)[address] [place] [address] Lymphocytes/100 WBC (Bld) 27.1 % Normal 20.0-45.0 [facility] Comment on above: Performed By: #### L [id number] ####[facility] (BEAKER)[address] [place] [address] MCH (RBC) [Entitic mass] 28.6 pg Normal 27.0-33.0 [facility] Comment on above: Performed By: #### L [id number] ####[facility] (BEAKER)[address] [place] [address] MCV (RBC) [Entitic vol] 93.6 fL Normal 82.0-98.0 [facility] Comment on above: Performed By: #### L [id number] ####[facility] (BEAKER)[address] [place] [address] Monocytes (Bld) [#/Vol] 0.74 10*3/uL Normal 0.10-1.00 [facility] Comment on above: Performed By: #### L [id number] ####[facility] (BEAKER)[address] [place] [address] Monocytes/100 WBC (Bld) 11.9 % Normal 5.0-12.0 [facility] Comment on above: Performed By: #### L [id number] ####[facility] ([facility])[address] [place] [address] Neutrophils (Bld) [#/Vol] 3.31 10*3/uL Normal 1.60-7.60 [facility] Comment on above: Performed By: #### L [id number] ####[facility] ([facility])[address] [place] [address] Neutrophils/100 WBC (Bld) 53.3 % Normal 40.0-72.0 [facility] Comment on above: Performed By: #### L [id number] ####[facility] ([facility])[address] [place] [address] NRBC (PER 100 WBCS) BY AUTOMATED COUNT 0.0 % Normal 0 [facility] Comment on above: Performed By: #### L [id number] ####[facility] ([facility])[address] [place] [address] PLATELETS (10*3/UL) IN BLOOD AUTOMATED COUNT 254 10*3/uL Normal 150-400 [facility] Comment on above: Performed By: #### L [id number] ####[facility] ([facility])[address] [place] [address] RBC (Bld) [#/Vol] 5.17 10*6/uL Normal 4.20-5.70 [facility] Comment on above: Performed By: #### L [id number] ####[facility] ([facility])[address] [place] [address] WBC (Bld) [#/Vol] 6.21 10*3/uL Normal 4.00-10.60 [facility] Comment on above: Performed By: #### L [id number] ####[facility] [place] [address] POCT GLUCOSE METER UNSOLICIT ED RESULTSon 09-04-2024 Glucose [Mass/Vol] 219 mg/dL High 70-105 [facility] Comment on above: Order Comment: Waive d Testing in the ED is performed under the ED CLIA certificate #[id number]. Result Comment: [email or web address] Performed By: #### L [id number] ####[facility] (BEAKER)[address] [place] [address] Glucose [Mass/Vol] 156 mg/dL High 70-105 [facility] Comment on above: Order Comment: Waive d Testing in the ED is performed under the ED CLIA certificate #[id number]. Result Comment: [email or web address] Performed By: #### L [id number] ####[facility] ([facility] [place] [address] Glucose [Mass/Vol] 190 mg/dL High 70-105 [facility] Comment on above: Order Comment: Waive d Testing in the ED is performed under the ED CLIA certificate #[id number]. Result Comment: [email or web address] Performed By: #### L [id number] ####[facility] (BEAKER)[address] [place] [address] Glucose [Mass/Vol] 149 mg/dL High 70-105 [facility] Comment on above: Order Comment: Waive d Testing in the ED is performed under the ED CLIA certificate #[id number]. Result Comment: [email or web address] Performed By: #### L [id number] ####[facility] (BEAKER)[address] [place] [address] 30on 09-03-2024 30 Normal [facility] BASIC METABOLIC PANELon 08-21 Anion gap [Moles/Vol] 11 mmol/L Normal 7-20 [facility] Comment on above: Performed By: #### L [id number] ####[facility] (BEAKER)[address] [place] [address] Calcium [Mass/Vol] 9.7 mg/dL Normal 8.6-10.3 [facility] Comment on above: Performed By: #### L [id number] ####[facility] (BEAKER)[address] [place] [address] Chloride [Moles/Vol] 96 mmol/L Low 98-107 [facility] Comment on above: Performed By: #### L [id number] ####[facility] (BEAKER)[address] [place] [address] CO2 [Moles/Vol] 33 mmol/L High 21-31 [facility] Comment on above: Performed By: #### L [id number] ####[facility] (BEAKER)[address] [place] [address] Creatinine [Mass/Vol] 0.87 mg/dL Normal 0.70-1.30 [facility] Comment on above: Performed By: #### L [id number] ####[facility] [place] [address] GLOMERULAR FILTRATION RATE ML/MIN/1.73 SQ M.PREDICTED 95.8 mL/min/1.73m*2 Normal >60.0 [facility] Comment on above: Result Comment: [facility]???s estimated glomerular filtration rate (eGFR) will [...] of individuals. Performed By: #### L [id number] ####[facility] (BEAKER)[address] [place] [address] Glucose [Mass/Vol] 161 mg/dL High 70-100 [facility] Comment on above: Performed By: #### L [id number] ####[facility] (BEAKER)[address] [place] [address] Potassium [Moles/Vol] 4.2 mmol/L Normal 3.5-5.1 [facility] Comment on above: Performed By: #### L [id number] ####[facility] ([facility] [place] [address] Sodium [Moles/Vol] 136 mmol/L Normal 136-145 [facility] Comment on above: Performed By: #### L [id number] ####[facility] ([facility])[address] [place] [address] Urea nitrogen [Mass/Vol] 23 mg/dL Normal 7-25 [facility] Comment on above: Performed By: #### L [id number] ####[facility] ([facility])[address] [place] [address] UREA NITROGEN/CREATININE (MASS RATIO) IN SER/PLAS 26.4 Normal [facility] Comment on above: Performed By: #### L [id number] ####[facility] ([facility])[address] [place] [address] CBC WITH AUTO DIFFERENTIALon 09-03-2024 Basophils (Bld) [#/Vol] 0.07 10*3/uL Normal 0.00-0.20 [facility] Comment on above: Performed By: #### L [id number] ####[facility] ([facility] [place] [address] Basophils/100 WBC (Bld) 0.8 % Normal 0.0-1.0 [facility] Comment on above: Performed By: #### L [id number] ####[facility] [place] [address] Eosinophils (Bld) [#/Vol] 0.40 10*3/uL Normal 0.00-0.50 [facility] Comment on above: Performed By: #### L [id number] ####[facility] ([facility] [place] [address] Eosinophils/100 WBC (Bld) 4.8 % Normal 0.0-6.0 [facility] Comment on above: Performed By: #### L [id number] ####[facility] ([facility])[address] [place] [address] Erythrocyte distribution width (RBC) [Ratio] 15.3 % High 11.5-15.0 [facility] Comment on above: Performed By: #### L [id number] ####[facility] ([facility])[address] [place] [address] ERYTHROCYTE MEAN CORPUSCULAR HEMOGLOBIN CONCENTRATION (G/DL) BY AUTOMATED 31.8 g/dL Low 32.0-35.0 [facility] Comment on above: Performed By: #### L [id number] ####[facility] ([facility])[address] [place] [address] Hematocrit (Bld) [Volume fraction] 46.8 % Normal 39.0-55.0 [facility] Comment on above: Performed By: #### L [id number] ####[facility] ([facility])[address] [place] [address] Hemoglobin (Bld) [Mass/Vol] 14.9 g/dL Normal 13.0-17.0 [facility] Comment on above: Performed By: #### L [id number] ####[facility] ([facility])[address] [place] [address] Immature granulocytes (Bld) [#/Vol] 0.05 10*3/uL Normal 0.00-0.20 [facility] Comment on above: Performed By: #### L [id number] ####[facility] ([facility])[address] [place] [address] Immature granulocytes/100 WBC (Bld) 0.6 % Normal 0.0-1.0 [facility] Comment on above: Performed By: #### L [id number] ####[facility] ([facility])[address] [place] [address] Lymphocytes (Bld) [#/Vol] 1.73 10*3/uL Normal 1.20-4.00 [facility] Comment on above: Performed By: #### L [id number] ####[facility] (BEAKER)[address] [place] [address] Lymphocytes/100 WBC (Bld) 20.9 % Normal 20.0-45.0 [facility] Comment on above: Performed By: #### L [id number] ####[facility] (BEAKER)[address] [place] [address] MCH (RBC) [Entitic mass] 29.3 pg Normal 27.0-33.0 [facility] Comment on above: Performed By: #### L [id number] ####[facility] (BEAKER)[address] [place] [address] MCV (RBC) [Entitic vol] 91.9 fL Normal 82.0-98.0 [facility] Comment on above: Performed By: #### L [id number] ####[facility] (BEAKER)[address] [place] [address] Monocytes (Bld) [#/Vol] 0.96 10*3/uL Normal 0.10-1.00 [facility] Comment on above: Performed By: #### L [id number] ####[facility] (BEAKER)[address] [place] [address] Monocytes/100 WBC (Bld) 11.6 % Normal 5.0-12.0 [facility] Comment on above: Performed By: #### L [id number] ####[facility] (BEAKER)[address] [place] [address] Neutrophils (Bld) [#/Vol] 5.06 10*3/uL Normal 1.60-7.60 [facility] Comment on above: Performed By: #### L [id number] ####[facility] (BEAKER)[address] [place] [address] Neutrophils/100 WBC (Bld) 61.3 % Normal 40.0-72.0 [facility] Comment on above: Performed By: #### L [id number] ####[facility] (BEAKER)[address] [place] [address] NRBC (PER 100 WBCS) BY AUTOMATED COUNT 0.0 % Normal 0 [facility] Comment on above: Performed By: #### L [id number] ####[facility] ([facility])[address] [place] [address] PLATELETS (10*3/UL) IN BLOOD AUTOMATED COUNT 264 10*3/uL Normal 150-400 [facility] Comment on above: Performed By: #### L [id number] ####[facility] ([facility])[address] [place] [address] RBC (Bld) [#/Vol] 5.09 10*6/uL Normal 4.20-5.70 [facility] Comment on above: Performed By: #### L [id number] ####[facility] ([facility])[address] [place] [address] WBC (Bld) [#/Vol] 8.27 10*3/uL Normal 4.00-10.60 [facility] Comment on above: Performed By: #### L [id number] ####[facility] ([facility])[address] [place] [address] MAGNESIUMon 09-03-2024 Magnesium [Mass/Vol] 1.6 mg/dL Low 1.9-2.7 [facility] Comment on above: Performed By: #### L [id number] ####[facility] ([facility])[address] [place] [address] PHOSPHORUSon 09-03-2024 Magnesium [Mass/Vol] 3.3 mg/dL Normal 2.5-5.0 [facility] Comment on above: Performed By: #### L [id number] ####[facility] ([facility])[address] [place] [address] POCT GLUCOSE METER UNSOLICIT ED RESULTSon 09-03-2024 Glucose [Mass/Vol] 168 mg/dL High 70-105 [facility] Comment on above: Order Comment: Waive d Testing in the ED is performed under the ED CLIA certificate #[id number]. Result Comment: [email or web address] pp Performed By: #### L [id number] ####[facility] ([facility])[address] [place] [address] Glucose [Mass/Vol] 184 mg/dL High 70-105 [facility] Comment on above: Order Comment: Waive d Testing in the ED is performed under the ED CLIA certificate #[id number]. Result Comment: [email or web address] [email or web address] Performed By: #### L [id number] ####[facility] ([facility])[address] [place] [address] Glucose [Mass/Vol] 205 mg/dL High 70-105 [facility] Comment on above: Order Comment: Waive d Testing in the ED is performed under the ED CLIA certificate #[id number]. Result Comment: [email or web address] [email or web address] Performed By: #### L [id number] ####[facility] ([facility])[address] [place] [address] Glucose [Mass/Vol] 145 mg/dL High 70-105 [facility] Comment on above: Order Comment: Waive d Testing in the ED is performed under the ED CLIA certificate #[id number]. Result Comment: [email or web address] [email or web address] Performed By: #### L [id number] ####[facility] ([facility])[address] [place] [address] 30on 09-02-2024 30 Normal [facility] BASIC METABOLIC PANELon 08-21 Anion gap [Moles/Vol] 8 mmol/L Normal 7-20 [facility] Comment on above: Performed By: #### L [id number] ####[facility] ([facility])[address] [place] [address] Calcium [Mass/Vol] 9.5 mg/dL Normal 8.6-10.3 [facility] Comment on above: Performed By: #### L [id number] ####[facility] ([facility])[address] [place] [address] Chloride [Moles/Vol] 99 mmol/L Normal 98-107 [facility] Comment on above: Performed By: #### L [id number] ####[facility] ([facility])[address] [place] [address] CO2 [Moles/Vol] 37 mmol/L High 21-31 [facility] Comment on above: Performed By: #### L [id number] ####[facility] ([facility])[address] [place] [address] Creatinine [Mass/Vol] 0.77 mg/dL Normal 0.70-1.30 [facility] Comment on above: Performed By: #### L [id number] ####[facility] ([facility])[address] [place] [address] GLOMERULAR FILTRATION RATE ML/MIN/1.73 SQ M.PREDICTED 99.4 mL/min/1.73m*2 Normal >60.0 [facility] Comment on above: Result Comment: [facility]???s estimated glomerular filtration rate (eGFR) will [...] of individuals. Performed By: #### L [id number] ####[facility] ([facility])[address] [place] [address] Glucose [Mass/Vol] 160 mg/dL High 70-100 [facility] Comment on above: Performed By: #### L [id number] ####[facility] ([facility])[address] [place] [address] Potassium [Moles/Vol] 4.1 mmol/L Normal 3.5-5.1 [facility] Comment on above: Performed By: #### L [id number] ####[facility] ([facility])[address] [place] [address] Sodium [Moles/Vol] 140 mmol/L Normal 136-145 [facility] Comment on above: Performed By: #### L [id number] ####[facility] ([facility])[address] [place] [address] Urea nitrogen [Mass/Vol] 16 mg/dL Normal 7-25 [facility] Comment on above: Performed By: #### L [id number] ####[facility] ([facility])[address] [place] [address] UREA NITROGEN/CREATININE (MASS RATIO) IN SER/PLAS 20.8 Normal [facility] Comment on above: Performed By: #### L [id number] ####[facility] ([facility])[address] [place] [address] CBC WITH AUTO DIFFERENTIALon 09-02-2024 Basophils (Bld) [#/Vol] 0.07 10*3/uL Normal 0.00-0.20 [facility] Comment on above: Performed By: #### L [id number] ####[facility] ([facility])[address] [place] [address] Basophils/100 WBC (Bld) 1.0 % Normal 0.0-1.0 [facility] Comment on above: Performed By: #### L [id number] ####[facility] ([facility])[address] [place] [address] Eosinophils (Bld) [#/Vol] 0.34 10*3/uL Normal 0.00-0.50 [facility] Comment on above: Performed By: #### L [id number] ####[facility] ([facility])[address] [place] [address] Eosinophils/100 WBC (Bld) 5.0 % Normal 0.0-6.0 [facility] Comment on above: Performed By: #### L [id number] ####[facility] [place] [address] Erythrocyte distribution width (RBC) [Ratio] 15.1 % High 11.5-15.0 [facility] Comment on above: Performed By: #### L [id number] ####[facility] ([facility])[address] [place] [address] ERYTHROCYTE MEAN CORPUSCULAR HEMOGLOBIN CONCENTRATION (G/DL) BY AUTOMATED 31.0 g/dL Low 32.0-35.0 [facility] Comment on above: Performed By: #### L [id number] ####[facility] [place] [address] Hematocrit (Bld) [Volume fraction] 46.2 % Normal 39.0-55.0 [facility] Comment on above: Performed By: #### L [id number] ####[facility] ([facility])[address] [place] [address] Hemoglobin (Bld) [Mass/Vol] 14.3 g/dL Normal 13.0-17.0 [facility] Comment on above: Performed By: #### L [id number] ####[facility] ([facility])[address] [place] [address] Immature granulocytes (Bld) [#/Vol] 0.04 10*3/uL Normal 0.00-0.20 [facility] Comment on above: Performed By: #### L [id number] ####[facility] ([facility])[address] [place] [address] Immature granulocytes/100 WBC (Bld) 0.6 % Normal 0.0-1.0 [facility] Comment on above: Performed By: #### L [id number] ####[facility] ([facility])[address] [place] [address] Lymphocytes (Bld) [#/Vol] 1.60 10*3/uL Normal 1.20-4.00 [facility] Comment on above: Performed By: #### L [id number] ####[facility] ([facility])[address] [place] [address] Lymphocytes/100 WBC (Bld) 23.7 % Normal 20.0-45.0 [facility] Comment on above: Performed By: #### L [id number] ####[facility] [place] [address] MCH (RBC) [Entitic mass] 28.8 pg Normal 27.0-33.0 [facility] Comment on above: Performed By: #### L [id number] ####[facility] ([facility])[address] [place] [address] MCV (RBC) [Entitic vol] 93.1 fL Normal 82.0-98.0 [facility] Comment on above: Performed By: #### L [id number] ####[facility] ([facility])[address] [place] [address] Monocytes (Bld) [#/Vol] 0.86 10*3/uL Normal 0.10-1.00 [facility] Comment on above: Performed By: #### L [id number] ####[facility] ([facility])[address] [place] [address] Monocytes/100 WBC (Bld) 12.8 % High 5.0-12.0 [facility] Comment on above: Performed By: #### L [id number] ####[facility] ([facility])[address] [place], [place] [address] Neutrophils (Bld) [#/Vol] 3.83 10*3/uL Normal 1.60-7.60 [facility] Comment on above: Performed By: #### L [id number] ####[facility] [place] [address] Neutrophils/100 WBC (Bld) 56.9 % Normal 40.0-72.0 [facility] Comment on above: Performed By: #### L [id number] ####[facility] ([facility])[address] [place] [address] NRBC (PER 100 WBCS) BY AUTOMATED COUNT 0.0 % Normal 0 [facility] Comment on above: Performed By: #### L [id number] ####[facility] ([facility])[address] [place] [address] PLATELETS (10*3/UL) IN BLOOD AUTOMATED COUNT 264 10*3/uL Normal 150-400 [facility] Comment on above: Performed By: #### L [id number] ####[facility] ([facility])[address] [place] [address] RBC (Bld) [#/Vol] 4.96 10*6/uL Normal 4.20-5.70 [facility] Comment on above: Performed By: #### L [id number] ####[facility] ([facility])[address] [place] [address] WBC (Bld) [#/Vol] 6.74 10*3/uL Normal 4.00-10.60 [facility] Comment on above: Performed By: #### L [id number] ####[facility] ([facility])[address] [place] [address] NURSNOTEon 09-02-2024 NURSNOTE Normal [facility] NURSNOTE Normal [facility] PHOSPHORUSon 09-02-2024 Magnesium [Mass/Vol] 3.1 mg/dL Normal 2.5-5.0 [facility] Comment on above: Performed By: #### L [id number] ####[facility] ([facility])[address] [place] [address] POCT GLUCOSE METER UNSOLICIT ED RESULTSon 09-02-2024 Glucose [Mass/Vol] 289 mg/dL High 70-105 [facility] Comment on above: Order Comment: Waive d Testing in the ED is performed under the ED CLIA certificate #[id number]. Result Comment: [email or web address] Performed By: #### L [id number] ####[facility] ([facility])[address] [place] [address] Glucose [Mass/Vol] 260 mg/dL High 70-105 [facility] Comment on above: Order Comment: Waive d Testing in the ED is performed under the ED CLIA certificate #[id number]. Result Comment: [email or web address] Performed By: #### L [id number] ####[facility] ([facility])[address] [place] [address] Glucose [Mass/Vol] 204 mg/dL High 70-105 [facility] Comment on above: Order Comment: Waive d Testing in the ED is performed under the ED CLIA certificate #[id number]. Result Comment: [email or web address] Performed By: #### L [id number] ####[facility] ([facility])[address] [place] [address] Glucose [Mass/Vol] 166 mg/dL High 70-105 [facility] Comment on above: Order Comment: Waive d Testing in the ED is performed under the ED CLIA certificate #[id number]. Result Comment: [email or web address] Performed By: #### L [id number] ####[facility] ([facility])[address] [place] [address] 30on 09-01-2024 30 Normal [facility] BASIC METABOLIC PANELon 08-21 Anion gap [Moles/Vol] 7 mmol/L Normal 7-20 [facility] Comment on above: Performed By: #### L [id number] ####[facility] ([facility])[address] [place] [address] Calcium [Mass/Vol] 9.1 mg/dL Normal 8.6-10.3 [facility] Comment on above: Performed By: #### L [id number] ####[facility] ([facility])[address] [place] [address] Chloride [Moles/Vol] 98 mmol/L Normal 98-107 [facility] Comment on above: Performed By: #### L [id number] ####[facility] ([facility])[address] [place] [address] CO2 [Moles/Vol] 36 mmol/L High 21-31 [facility] Comment on above: Performed By: #### L [id number] ####[facility] [place] [address] Creatinine [Mass/Vol] 0.84 mg/dL Normal 0.70-1.30 [facility] Comment on above: Performed By: #### L [id number] ####[facility] ([facility])[address] [place] [address] GLOMERULAR FILTRATION RATE ML/MIN/1.73 SQ M.PREDICTED 96.8 mL/min/1.73m*2 Normal >60.0 [facility] Comment on above: Result Comment: [facility]???s estimated glomerular filtration rate (eGFR) will [...] of individuals. Performed By: #### L [id number] ####[facility] ([facility])[address] [place] [address] Glucose [Mass/Vol] 190 mg/dL High 70-100 [facility] Comment on above: Performed By: #### L [id number] ####[facility] ([facility])[address] [place] [address] Potassium [Moles/Vol] 4.1 mmol/L Normal 3.5-5.1 [facility] Comment on above: Performed By: #### L [id number] ####[facility] ([facility])[address] [place] [address] Sodium [Moles/Vol] 137 mmol/L Normal 136-145 [facility] Comment on above: Performed By: #### L [id number] ####[facility] ([facility])[address] [place] [address] Urea nitrogen [Mass/Vol] 18 mg/dL Normal 7-25 [facility] Comment on above: Performed By: #### L [id number] ####[facility] ([facility])[address] [place] [address] UREA NITROGEN/CREATININE (MASS RATIO) IN SER/PLAS 21.4 Normal [facility] Comment on above: Performed By: #### L [id number] ####[facility] [place] [address] CBC WITH AUTO DIFFERENTIALon 09-01-2024 Basophils (Bld) [#/Vol] 0.07 10*3/uL Normal 0.00-0.20 [facility] Comment on above: Performed By: #### L [id number] ####[facility] ([facility] [place] [address] Basophils/100 WBC (Bld) 1.0 % Normal 0.0-1.0 [facility] Comment on above: Performed By: #### L [id number] ####[facility] [place] [address] Eosinophils (Bld) [#/Vol] 0.37 10*3/uL Normal 0.00-0.50 [facility] Comment on above: Performed By: #### L [id number] ####[facility] ([facility])[address] [place] [address] Eosinophils/100 WBC (Bld) 5.1 % Normal 0.0-6.0 [facility] Comment on above: Performed By: #### L [id number] ####[facility] [place] [address] Erythrocyte distribution width (RBC) [Ratio] 15.1 % High 11.5-15.0 [facility] Comment on above: Performed By: #### L [id number] ####[facility] ([facility])[address] [place] [address] ERYTHROCYTE MEAN CORPUSCULAR HEMOGLOBIN CONCENTRATION (G/DL) BY AUTOMATED 31.3 g/dL Low 32.0-35.0 [facility] Comment on above: Performed By: #### L [id number] ####[facility] ([facility])[address] [place] [address] Hematocrit (Bld) [Volume fraction] 46.3 % Normal 39.0-55.0 [facility] Comment on above: Performed By: #### L [id number] ####[facility] ([facility])[address] [place] [address] Hemoglobin (Bld) [Mass/Vol] 14.5 g/dL Normal 13.0-17.0 [facility] Comment on above: Performed By: #### L [id number] ####[facility] ([facility])[address] [place] [address] Immature granulocytes (Bld) [#/Vol] 0.04 10*3/uL Normal 0.00-0.20 [facility] Comment on above: Performed By: #### L [id number] ####[facility] ([facility])[address] [place] [address] Immature granulocytes/100 WBC (Bld) 0.6 % Normal 0.0-1.0 [facility] Comment on above: Performed By: #### L [id number] ####[facility] ([facility])[address] [place] [address] Lymphocytes (Bld) [#/Vol] 1.46 10*3/uL Normal 1.20-4.00 [facility] Comment on above: Performed By: #### L [id number] ####[facility] ([facility])[address] [place] [address] Lymphocytes/100 WBC (Bld) 20.2 % Normal 20.0-45.0 [facility] Comment on above: Performed By: #### L [id number] ####[facility] ([facility])[address] [place] [address] MCH (RBC) [Entitic mass] 29.1 pg Normal 27.0-33.0 [facility] Comment on above: Performed By: #### L [id number] ####[facility] ([facility])[address] [place] [address] MCV (RBC) [Entitic vol] 92.8 fL Normal 82.0-98.0 [facility] Comment on above: Performed By: #### L [id number] ####[facility] ([facility])[address] [place] [address] Monocytes (Bld) [#/Vol] 0.85 10*3/uL Normal 0.10-1.00 [facility] Comment on above: Performed By: #### L [id number] ####[facility] ([facility])[address] [place] [address] Monocytes/100 WBC (Bld) 11.8 % Normal 5.0-12.0 [facility] Comment on above: Performed By: #### L [id number] ####[facility] [place] [address] Neutrophils (Bld) [#/Vol] 4.43 10*3/uL Normal 1.60-7.60 [facility] Comment on above: Performed By: #### L [id number] ####[facility] ([facility] [place] [address] Neutrophils/100 WBC (Bld) 61.3 % Normal 40.0-72.0 [facility] Comment on above: Performed By: #### L [id number] ####[facility] ([facility])[address] [place] [address] NRBC (PER 100 WBCS) BY AUTOMATED COUNT 0.0 % Normal 0 [facility] Comment on above: Performed By: #### L [id number] ####[facility] ([facility])[address] [place] [address] PLATELETS (10*3/UL) IN BLOOD AUTOMATED COUNT 268 10*3/uL Normal 150-400 [facility] Comment on above: Performed By: #### L [id number] ####[facility] ([facility])[address] [place] [address] RBC (Bld) [#/Vol] 4.99 10*6/uL Normal 4.20-5.70 [facility] Comment on above: Performed By: #### L [id number] ####[facility] ([facility])[address] [place] [address] WBC (Bld) [#/Vol] 7.22 10*3/uL Normal 4.00-10.60 [facility] Comment on above: Performed By: #### L [id number] ####[facility] ([facility])[address] [place] [address] MAGNESIUMon 09-01-2024 Magnesium [Mass/Vol] 1.8 mg/dL Low 1.9-2.7 [facility] Comment on above: Performed By: #### L [id number] ####[facility] ([facility])[address] [place] [address] POCT GLUCOSE METER UNSOLICIT ED RESULTSon 09-01-2024 Glucose [Mass/Vol] 225 mg/dL High 70-105 [facility] Comment on above: Order Comment: Waive d Testing in the ED is performed under the ED CLIA certificate #[id number]. Result Comment: [email or web address] Performed By: #### L [id number] ####[facility] ([facility])[address] [place] [address] Glucose [Mass/Vol] 181 mg/dL High 70-105 [facility] Comment on above: Order Comment: Waive d Testing in the ED is performed under the ED CLIA certificate #[id number]. Result Comment: [email or web address] Performed By: #### L [id number] ####[facility] ([facility])[address] [place] [address] Glucose [Mass/Vol] 209 mg/dL High 70-105 [facility] Comment on above: Order Comment: Waive d Testing in the ED is performed under the ED CLIA certificate #[id number]. Result Comment: [email or web address] Performed By: #### L [id number] ####[facility] ([facility])[address] [place] [address] Glucose [Mass/Vol] 181 mg/dL High 70-105 [facility] Comment on above: Order Comment: Waive d Testing in the ED is performed under the ED CLIA certificate #[id number]. Result Comment: [email or web address] Performed By: #### L [id number] ####[facility] ([facility])[address] [place] [address] 30on 08-31-2024 30 Normal [facility] 30 Normal [facility] BASIC METABOLIC PANELon 08-21 Anion gap [Moles/Vol] 8 mmol/L Normal 7-20 [facility] Comment on above: Performed By: #### L [id number] ####[facility] ([facility])[address] [place] [address] Calcium [Mass/Vol] 9.6 mg/dL Normal 8.6-10.3 [facility] Comment on above: Performed By: #### L [id number] ####[facility] ([facility])[address] [place] [address] Chloride [Moles/Vol] 97 mmol/L Low 98-107 [facility] Comment on above: Performed By: #### L [id number] ####[facility] ([facility])[address] [place] [address] CO2 [Moles/Vol] 35 mmol/L High 21-31 [facility] Comment on above: Performed By: #### L [id number] ####[facility] ([facility])[address] [place] [address] Creatinine [Mass/Vol] 0.85 mg/dL Normal 0.70-1.30 [facility] Comment on above: Performed By: #### L [id number] ####[facility] ([facility])[address] [place] [address] GLOMERULAR FILTRATION RATE ML/MIN/1.73 SQ M.PREDICTED 96.4 mL/min/1.73m*2 Normal >60.0 [facility] Comment on above: Result Comment: [facility]???s estimated glomerular filtration rate (eGFR) will [...] of individuals. Performed By: #### L [id number] ####[facility] ([facility])[address] [place] [address] Glucose [Mass/Vol] 205 mg/dL High 70-100 [facility] Comment on above: Performed By: #### L [id number] ####[facility] ([facility])[address] [place] [address] Potassium [Moles/Vol] 3.9 mmol/L Normal 3.5-5.1 [facility] Comment on above: Performed By: #### L [id number] ####[facility] ([facility])[address] [place] [address] Sodium [Moles/Vol] 136 mmol/L Normal 136-145 [facility] Comment on above: Performed By: #### L [id number] ####[facility] ([facility])[address] [place] [address] Urea nitrogen [Mass/Vol] 21 mg/dL Normal 7-25 [facility] Comment on above: Performed By: #### L [id number] ####[facility] ([facility])[address] [place] [address] UREA NITROGEN/CREATININE (MASS RATIO) IN SER/PLAS 24.7 Normal [facility] Comment on above: Performed By: #### L [id number] ####[facility] ([facility])[address] [place] [address] CBC WITH AUTO DIFFERENTIALon 08-31-2024 Basophils (Bld) [#/Vol] 0.06 10*3/uL Normal 0.00-0.20 [facility] Comment on above: Performed By: #### L [id number] ####[facility] ([facility])[address] [place] [address] Basophils/100 WBC (Bld) 0.8 % Normal 0.0-1.0 [facility] Comment on above: Performed By: #### L [id number] ####[facility] ([facility])[address] [place] [address] Eosinophils (Bld) [#/Vol] 0.38 10*3/uL Normal 0.00-0.50 [facility] Comment on above: Performed By: #### L [id number] ####[facility] ([facility])[address] [place] [address] Eosinophils/100 WBC (Bld) 5.3 % Normal 0.0-6.0 [facility] Comment on above: Performed By: #### L [id number] ####[facility] ([facility])[address] [place] [address] Erythrocyte distribution width (RBC) [Ratio] 15.2 % High 11.5-15.0 [facility] Comment on above: Performed By: #### L [id number] ####[facility] ([facility])[address] [place] [address] ERYTHROCYTE MEAN CORPUSCULAR HEMOGLOBIN CONCENTRATION (G/DL) BY AUTOMATED 30.4 g/dL Low 32.0-35.0 [facility] Comment on above: Performed By: #### L [id number] ####[facility] ([facility])[address] [place] [address] Hematocrit (Bld) [Volume fraction] 48.3 % Normal 39.0-55.0 [facility] Comment on above: Performed By: #### L [id number] ####[facility] ([facility])[address] [place] [address] Hemoglobin (Bld) [Mass/Vol] 14.7 g/dL Normal 13.0-17.0 [facility] Comment on above: Performed By: #### L [id number] ####[facility] ([facility])[address] [place] [address] Immature granulocytes (Bld) [#/Vol] 0.06 10*3/uL Normal 0.00-0.20 [facility] Comment on above: Performed By: #### L [id number] ####[facility] [place] [address] Immature granulocytes/100 WBC (Bld) 0.8 % Normal 0.0-1.0 [facility] Comment on above: Performed By: #### L [id number] ####[facility] ([facility])[address] [place] [address] Lymphocytes (Bld) [#/Vol] 1.17 10*3/uL Low 1.20-4.00 [facility] Comment on above: Performed By: #### L [id number] ####[facility] ([facility])[address] [place] [address] Lymphocytes/100 WBC (Bld) 16.3 % Low 20.0-45.0 [facility] Comment on above: Performed By: #### L [id number] ####[facility] (BEAKER)[address] [place] [address] MCH (RBC) [Entitic mass] 29.0 pg Normal 27.0-33.0 [facility] Comment on above: Performed By: #### L [id number] ####[facility] (BEAKER)[address] [place] [address] MCV (RBC) [Entitic vol] 95.3 fL Normal 82.0-98.0 [facility] Comment on above: Performed By: #### L [id number] ####[facility] (BEAKER)[address] [place] [address] Monocytes (Bld) [#/Vol] 0.82 10*3/uL Normal 0.10-1.00 [facility] Comment on above: Performed By: #### L [id number] ####[facility] [facility] ([facility])[address] [place] [address] Monocytes/100 WBC (Bld) 11.4 % Normal 5.0-12.0 [facility] Comment on above: Performed By: #### L [id number] ####[facility] ([facility])[address] [address] Neutrophils (Bld) [#/Vol] 4.70 10*3/uL Normal 1.60-7.60 [facility] Comment on above: Performed By: #### L [id number] ####[facility] ([facility])[address] [address] Neutrophils/100 WBC (Bld) 65.4 % Normal 40.0-72.0 [facility] Comment on above: Performed By: #### L [id number] ####[facility] ([facility])[address] [place] [address] NRBC (PER 100 WBCS) BY AUTOMATED COUNT 0.0 % Normal 0 [facility] Comment on above: Performed By: #### L [id number] ####[facility] ([facility])[address] [address] PLATELETS (10*3/UL) IN BLOOD AUTOMATED COUNT 278 10*3/uL Normal 150-400 [facility] Comment on above: Performed By: #### L [id number] ####[facility] ([facility])[address] [place] [address] RBC (Bld) [#/Vol] 5.07 10*6/uL Normal 4.20-5.70 [facility] Comment on above: Performed By: #### L [id number] ####[facility] ([facility])[address] [address] WBC (Bld) [#/Vol] 7.19 10*3/uL Normal 4.00-10.60 [facility] Comment on above: Performed By: #### L [id number] ####[facility] ([facility])[address] [place] [address] MAGNESIUMon 08-31-2024 Magnesium [Mass/Vol] 1.6 mg/dL Low 1.9-2.7 [facility] Comment on above: Performed By: #### L [id number] ####[facility] ([facility])[address] [place] [address] POCT GLUCOSE METER UNSOLICIT ED RESULTSon 08-31-2024 Glucose [Mass/Vol] 281 mg/dL High 70-105 [facility] Comment on above: Order Comment: Waive d Testing in the ED is performed under the ED CLIA certificate #[id number]. Result Comment: [email or web address] hro Performed By: #### L [id number] ####[facility] ([facility])[address] [place] [address] Glucose [Mass/Vol] 157 mg/dL High 70-105 [facility] Comment on above: Order Comment: Waive d Testing in the ED is performed under the ED CLIA certificate #[id number]. Result Comment: [email or web address] Performed By: #### L [id number] ####[facility] ([facility])[address] [place] [address] Glucose [Mass/Vol] 212 mg/dL High 70-105 [facility] Comment on above: Order Comment: Waive d Testing in the ED is performed under the ED CLIA certificate #[id number]. Result Comment: [email or web address] Performed By: #### L [id number] ####[facility] ([facility])[address] [place] [address] Glucose [Mass/Vol] 167 mg/dL High 70-105 [facility] Comment on above: Order Comment: Waive d Testing in the ED is performed under the ED CLIA certificate #[id number]. Result Comment: [email or web address] Performed By: #### L [id number] ####[facility] ([facility])[address] [place] [address] 30on 08-30-2024 30 Normal [facility] BASIC METABOLIC PANELon 08-21 Anion gap [Moles/Vol] 10 mmol/L Normal 7-20 [facility] Comment on above: Performed By: #### L [id number] ####[facility] ([facility])[address] [place] [address] Calcium [Mass/Vol] 10.3 mg/dL Normal 8.6-10.3 [facility] Comment on above: Performed By: #### L [id number] ####[facility] ([facility])[address] [place] [address] Chloride [Moles/Vol] 94 mmol/L Low 98-107 [facility] Comment on above: Performed By: #### L [id number] ####[facility] ([facility])[address] [place] [address] CO2 [Moles/Vol] 34 mmol/L High 21-31 [facility] Comment on above: Performed By: #### L [id number] ####[facility] ([facility])[address] [place] [address] Creatinine [Mass/Vol] 0.98 mg/dL Normal 0.70-1.30 [facility] Comment on above: Performed By: #### L [id number] ####[facility] [place] [address] GLOMERULAR FILTRATION RATE ML/MIN/1.73 SQ M.PREDICTED 85.6 mL/min/1.73m*2 Normal >60.0 [facility] Comment on above: Result Comment: [facility]???s estimated glomerular filtration rate (eGFR) will [...] of individuals. Performed By: #### L [id number] ####[facility] ([facility])[address] [place] [address] Glucose [Mass/Vol] 184 mg/dL High 70-100 [facility] Comment on above: Performed By: #### L [id number] ####[facility] ([facility])[address] [place], [place] [address] Potassium [Moles/Vol] 4.1 mmol/L Normal 3.5-5.1 [facility] Comment on above: Performed By: #### L [id number] ####[facility] ([facility])[address] [place], [place] [address] Sodium [Moles/Vol] 134 mmol/L Low 136-145 [facility] Comment on above: Performed By: #### L [id number] ####[facility] ([facility])[address] [place] [address] Urea nitrogen [Mass/Vol] 27 mg/dL High 7-25 [facility] Comment on above: Performed By: #### L [id number] ####[facility] ([facility])[address] [place] [address] UREA NITROGEN/CREATININE (MASS RATIO) IN SER/PLAS 27.6 Normal [facility] Comment on above: Performed By: #### L [id number] ####[facility] ([facility])[address] [place] [address] CBC WITH AUTO DIFFERENTIALon 08-30-2024 Basophils (Bld) [#/Vol] 0.09 10*3/uL Normal 0.00-0.20 [facility] Comment on above: Performed By: #### L [id number] ####[facility] ([facility])[address] [place], [place] [address] Basophils/100 WBC (Bld) 1.0 % Normal 0.0-1.0 [facility] Comment on above: Performed By: #### L [id number] ####[facility] ([facility])[address] [place] [address] Eosinophils (Bld) [#/Vol] 0.54 10*3/uL High 0.00-0.50 [facility] Comment on above: Performed By: #### L [id number] ####[facility] ([facility])[address] [place] [address] Eosinophils/100 WBC (Bld) 5.9 % Normal 0.0-6.0 [facility] Comment on above: Performed By: #### L [id number] ####[facility] ([facility])[address] [place] [address] Erythrocyte distribution width (RBC) [Ratio] 14.9 % Normal 11.5-15.0 [facility] Comment on above: Performed By: #### L [id number] ####[facility] ([facility])[address] [place] [address] ERYTHROCYTE MEAN CORPUSCULAR HEMOGLOBIN CONCENTRATION (G/DL) BY AUTOMATED 31.0 g/dL Low 32.0-35.0 [facility] Comment on above: Performed By: #### L [id number] ####[facility] ([facility])[address] [place] [address] Hematocrit (Bld) [Volume fraction] 50.9 % Normal 39.0-55.0 [facility] Comment on above: Performed By: #### L [id number] ####[facility] ([facility])[address] [place] [address] Hemoglobin (Bld) [Mass/Vol] 15.8 g/dL Normal 13.0-17.0 [facility] Comment on above: Performed By: #### L [id number] ####[facility] ([facility])[address] [place] [address] Immature granulocytes (Bld) [#/Vol] 0.06 10*3/uL Normal 0.00-0.20 [facility] Comment on above: Performed By: #### L [id number] ####[facility] ([facility])[address] [place] [address] Immature granulocytes/100 WBC (Bld) 0.7 % Normal 0.0-1.0 [facility] Comment on above: Performed By: #### L [id number] ####[facility] ([facility])[address] [place] [address] Lymphocytes (Bld) [#/Vol] 1.65 10*3/uL Normal 1.20-4.00 [facility] Comment on above: Performed By: #### L [id number] ####[facility] ([facility])[address] [place] [address] Lymphocytes/100 WBC (Bld) 17.9 % Low 20.0-45.0 [facility] Comment on above: Performed By: #### L [id number] ####[facility] ([facility])[address] [place] [address] MCH (RBC) [Entitic mass] 29.2 pg Normal 27.0-33.0 [facility] Comment on above: Performed By: #### L [id number] ####[facility] ([facility])[address] [place] [address] MCV (RBC) [Entitic vol] 93.9 fL Normal 82.0-98.0 [facility] Comment on above: Performed By: #### L [id number] ####[facility] ([facility])[address] [place] [address] Monocytes (Bld) [#/Vol] 1.05 10*3/uL High 0.10-1.00 [facility] Comment on above: Performed By: #### L [id number] ####[facility] ([facility])[address] [place] [address] Monocytes/100 WBC (Bld) 11.4 % Normal 5.0-12.0 [facility] Comment on above: Performed By: #### L [id number] ####[facility] ([facility])[address] [place] [address] Neutrophils (Bld) [#/Vol] 5.82 10*3/uL Normal 1.60-7.60 [facility] Comment on above: Performed By: #### L [id number] ####[facility] ([facility])[address] [place] [address] Neutrophils/100 WBC (Bld) 63.1 % Normal 40.0-72.0 [facility] Comment on above: Performed By: #### L [id number] ####[facility] ([facility])[address] [address] NRBC (PER 100 WBCS) BY AUTOMATED COUNT 0.0 % Normal 0 [facility] Comment on above: Performed By: #### L [id number] ####[facility] ([facility])[address] [place] [address] PLATELETS (10*3/UL) IN BLOOD AUTOMATED COUNT 298 10*3/uL Normal 150-400 [facility] Comment on above: Performed By: #### L [id number] ####[facility] ([facility])[address] [place] [address] RBC (Bld) [#/Vol] 5.42 10*6/uL Normal 4.20-5.70 [facility] Comment on above: Performed By: #### L [id number] ####[facility] ([facility])[address] [address] WBC (Bld) [#/Vol] 9.21 10*3/uL Normal 4.00-10.60 [facility] Comment on above: Performed By: #### L [id number] ####[facility] ([facility])[address] [place] [address] CONSULTon 08-30-2024 CONSULT Normal [facility] MAGNESIUMon 08-30-2024 Magnesium [Mass/Vol] 1.7 mg/dL Low 1.9-2.7 [facility] Comment on above: Performed By: #### L [id number] ####[facility] [place] [address] NURSNOTEon 08-30-2024 NURSNOTE Normal [facility] POCT GLUCOSE METER UNSOLICIT ED RESULTSon 08-30-2024 Glucose [Mass/Vol] 294 mg/dL High 70-105 [facility] Comment on above: Order Comment: Waive d Testing in the ED is performed under the ED CLIA certificate #[id number]. Result Comment: [email or web address] [id number] Value Noted Performed By: #### L [id number] ####[facility] ([facility])[address] [facility] [place] [address] Glucose [Mass/Vol] 162 mg/dL High 70-105 [facility] Comment on above: Order Comment: Waive d Testing in the ED is performed under the ED CLIA certificate #[id number]. Result Comment: abee rbo Performed By: #### L [id number] ####[facility] ([facility])[address] [place] [address] Glucose [Mass/Vol] 193 mg/dL High 70-105 [facility] Comment on above: Order Comment: Waive d Testing in the ED is performed under the ED CLIA certificate #[id number]. Result Comment: abee rbo Performed By: #### L [id number] ####[facility] ([facility])[address] [place] [address] Glucose [Mass/Vol] 235 mg/dL High 70-105 [facility] Comment on above: Order Comment: Waive d Testing in the ED is performed under the ED CLIA certificate #[id number]. Result Comment: [email or web address] [email or web address] Performed By: #### L [id number] ####[facility] ([facility])[address] [place] [address] Glucose [Mass/Vol] 209 mg/dL High 70-105 [facility] Comment on above: Order Comment: Waive d Testing in the ED is performed under the ED CLIA certificate #[id number]. Result Comment: [email or web address] [email or web address] Performed By: #### L [id number] ####[facility] ([facility])[address] [place] [address] BASIC METABOLIC PANELon 02-0 Anion gap [Moles/Vol] 7 mmol/L Normal 7-20 [facility] Comment on above: Performed By: #### L [id number] ####[facility] [place] [address] Calcium [Mass/Vol] 10.5 mg/dL High 8.6-10.3 [facility] Comment on above: Performed By: #### L [id number] ####[facility] ([facility])[address] [place] [address] Chloride [Moles/Vol] 93 mmol/L Low 98-107 [facility] Comment on above: Performed By: #### L [id number] ####[facility] ([facility])[address] [place] [address] CO2 [Moles/Vol] 38 mmol/L High 21-31 [facility] Comment on above: Performed By: #### L [id number] ####[facility] ([facility])[address] [place] [address] Creatinine [Mass/Vol] 0.96 mg/dL Normal 0.70-1.30 [facility] Comment on above: Performed By: #### L [id number] ####[facility] ([facility])[address] [place] [address] GLOMERULAR FILTRATION RATE ML/MIN/1.73 SQ M.PREDICTED 87.7 mL/min/1.73m*2 Normal >60.0 [facility] Comment on above: Result Comment: [facility]???s estimated glomerular filtration rate (eGFR) will [...] of individuals. Performed By: #### L [id number] ####[facility] ([facility])[address] [place] [address] Glucose [Mass/Vol] 182 mg/dL High 70-100 [facility] Comment on above: Performed By: #### L [id number] ####[facility] ([facility])[address] [place] [address] Potassium [Moles/Vol] 4.1 mmol/L Normal 3.5-5.1 [facility] Comment on above: Performed By: #### L [id number] ####[facility] ([facility])[address] [place] [address] Sodium [Moles/Vol] 134 mmol/L Low 136-145 [facility] Comment on above: Performed By: #### L [id number] ####[facility] ([facility])[address] [place] [address] Urea nitrogen [Mass/Vol] 23 mg/dL Normal 7-25 [facility] Comment on above: Performed By: #### L [id number] ####[facility] ([facility])[address] [place] [address] UREA NITROGEN/CREATININE (MASS RATIO) IN SER/PLAS 24.0 Normal [facility] Comment on above: Performed By: #### L [id number] ####[facility] ([facility])[address] [place] [address] CBC WITH AUTO DIFFERENTIALon 08-29-2024 Basophils (Bld) [#/Vol] 0.09 10*3/uL Normal 0.00-0.20 [facility] Comment on above: Performed By: #### L [id number] ####[facility] ([facility])[address] [place] [address] Basophils/100 WBC (Bld) 1.0 % Normal 0.0-1.0 [facility] Comment on above: Performed By: #### L [id number] ####[facility] ([facility])[address] [place] [address] Eosinophils (Bld) [#/Vol] 0.48 10*3/uL Normal 0.00-0.50 [facility] Comment on above: Performed By: #### L [id number] ####[facility] ([facility])[address] [place] [address] Eosinophils/100 WBC (Bld) 5.3 % Normal 0.0-6.0 [facility] Comment on above: Performed By: #### L [id number] ####[facility] ([facility])[address] [place] [address] Erythrocyte distribution width (RBC) [Ratio] 15.0 % Normal 11.5-15.0 [facility] Comment on above: Performed By: #### L [id number] ####[facility] [place] [address] ERYTHROCYTE MEAN CORPUSCULAR HEMOGLOBIN CONCENTRATION (G/DL) BY AUTOMATED 30.5 g/dL Low 32.0-35.0 [facility] Comment on above: Performed By: #### L [id number] ####[facility] ([facility])[address] [place] [address] Hematocrit (Bld) [Volume fraction] 51.2 % Normal 39.0-55.0 [facility] Comment on above: Performed By: #### L [id number] ####[facility] ([facility])[address] [place] [address] Hemoglobin (Bld) [Mass/Vol] 15.6 g/dL Normal 13.0-17.0 [facility] Comment on above: Performed By: #### L [id number] ####[facility] ([facility])[address] [place] [address] Immature granulocytes (Bld) [#/Vol] 0.07 10*3/uL Normal 0.00-0.20 [facility] Comment on above: Performed By: #### L [id number] ####[facility] ([facility])[address] [place] [address] Immature granulocytes/100 WBC (Bld) 0.8 % Normal 0.0-1.0 [facility] Comment on above: Performed By: #### L [id number] ####[facility] ([facility])[address] [place] [address] Lymphocytes (Bld) [#/Vol] 1.41 10*3/uL Normal 1.20-4.00 [facility] Comment on above: Performed By: #### L [id number] ####[facility] ([facility])[address] [place] [address] Lymphocytes/100 WBC (Bld) 15.7 % Low 20.0-45.0 [facility] Comment on above: Performed By: #### L [id number] ####[facility] ([facility])[address] [place] [address] MCH (RBC) [Entitic mass] 29.0 pg Normal 27.0-33.0 [facility] Comment on above: Performed By: #### L [id number] ####[facility] ([facility])[address] [place] [address] MCV (RBC) [Entitic vol] 95.2 fL Normal 82.0-98.0 [facility] Comment on above: Performed By: #### L [id number] ####[facility] ([facility])[address] [place] [address] Monocytes (Bld) [#/Vol] 0.82 10*3/uL Normal 0.10-1.00 [facility] Comment on above: Performed By: #### L [id number] ####[facility] ([facility])[address] [place] [address] Monocytes/100 WBC (Bld) 9.1 % Normal 5.0-12.0 [facility] Comment on above: Performed By: #### L [id number] ####[facility] ([facility])[address] [place] [address] Neutrophils (Bld) [#/Vol] 6.11 10*3/uL Normal 1.60-7.60 [facility] Comment on above: Performed By: #### L [id number] ####[facility] ([facility])[address] [place] [address] Neutrophils/100 WBC (Bld) 68.1 % Normal 40.0-72.0 [facility] Comment on above: Performed By: #### L [id number] ####[facility] ([facility])[address] [place] [address] NRBC (PER 100 WBCS) BY AUTOMATED COUNT 0.0 % Normal 0 [facility] Comment on above: Performed By: #### L [id number] ####[facility] ([facility])[address] [place] [address] PLATELETS (10*3/UL) IN BLOOD AUTOMATED COUNT 262 10*3/uL Normal 150-400 [facility] Comment on above: Performed By: #### L [id number] ####[facility] ([facility])[address] [place] [address] RBC (Bld) [#/Vol] 5.38 10*6/uL Normal 4.20-5.70 [facility] Comment on above: Performed By: #### L [id number] ####[facility] ([facility])[address] [place] [address] WBC (Bld) [#/Vol] 8.98 10*3/uL Normal 4.00-10.60 [facility] Comment on above: Performed By: #### L [id number] ####[facility] ([facility])[address] [place] [address] MAGNESIUMon 08-29-2024 Magnesium [Mass/Vol] 1.7 mg/dL Low 1.9-2.7 [facility] Comment on above: Performed By: #### L [id number] ####[facility] [place] [address] POCT GLUCOSE METER UNSOLICIT ED RESULTSon 08-29-2024 Glucose [Mass/Vol] 284 mg/dL High 70-105 [facility] Comment on above: Order Comment: Waive d Testing in the ED is performed under the ED CLIA certificate #[id number]. Result Comment: sbel air Performed By: #### L [id number] ####[facility] ([facility])[address] [place] [address] Glucose [Mass/Vol] 259 mg/dL High 70-105 [facility] Comment on above: Order Comment: Waive d Testing in the ED is performed under the ED CLIA certificate #[id number]. Result Comment: aall [email or web address] Performed By: #### L [id number] ####[facility] ([facility])[address] [place] [address] Glucose [Mass/Vol] 301 mg/dL High 70-105 [facility] Comment on above: Order Comment: Waive d Testing in the ED is performed under the ED CLIA certificate #[id number]. Result Comment: aall [email or web address] Performed By: #### L [id number] ####[facility] ([facility])[address] [place] [address] Glucose [Mass/Vol] 166 mg/dL High 70-105 [facility] Comment on above: Order Comment: Waive d Testing in the ED is performed under the ED CLIA certificate #[id number]. Result Comment: aall [email or web address] Performed By: #### L [id number] ####[facility] [place] [address] BASIC METABOLIC PANELon 02-0 Anion gap [Moles/Vol] 8 mmol/L Normal 7-20 [facility] Comment on above: Performed By: #### L [id number] ####[facility] ([facility])[address] [place] [address] Calcium [Mass/Vol] 9.8 mg/dL Normal 8.6-10.3 [facility] Comment on above: Performed By: #### L [id number] ####[facility] ([facility])[address] [place] [address] Chloride [Moles/Vol] 96 mmol/L Low 98-107 [facility] Comment on above: Performed By: #### L [id number] ####[facility] ([facility])[address] [place] [address] CO2 [Moles/Vol] 37 mmol/L High 21-31 [facility] Comment on above: Performed By: #### L [id number] ####[facility] ([facility])[address] [place] [address] Creatinine [Mass/Vol] 0.82 mg/dL Normal 0.70-1.30 [facility] Comment on above: Performed By: #### L [id number] ####[facility] ([facility])[address] [place] [address] GLOMERULAR FILTRATION RATE ML/MIN/1.73 SQ M.PREDICTED 97.5 mL/min/1.73m*2 Normal >60.0 [facility] Comment on above: Result Comment: [facility]???s estimated glomerular filtration rate (eGFR) will [...] of individuals. Performed By: #### L [id number] ####[facility] ([facility])[address] [place] [address] Glucose [Mass/Vol] 183 mg/dL High 70-100 [facility] Comment on above: Performed By: #### L [id number] ####[facility] [facility] ([facility])[address] [place] [address] Potassium [Moles/Vol] 3.7 mmol/L Normal 3.5-5.1 [facility] Comment on above: Performed By: #### L [id number] ####[facility] ([facility])[address] [place] [address] Sodium [Moles/Vol] 137 mmol/L Normal 136-145 [facility] Comment on above: Performed By: #### L [id number] ####[facility] ([facility])[address] [place] [address] Urea nitrogen [Mass/Vol] 17 mg/dL Normal 7-25 [facility] Comment on above: Performed By: #### L [id number] ####[facility] [place] [address] UREA NITROGEN/CREATININE (MASS RATIO) IN SER/PLAS 20.7 Normal [facility] Comment on above: Performed By: #### L [id number] ####[facility] [place] [address] CBC WITH AUTO DIFFERENTIALon 08-28-2024 Basophils (Bld) [#/Vol] 0.09 10*3/uL Normal 0.00-0.20 [facility] Comment on above: Performed By: #### L [id number] ####[facility] [place] [address] Basophils/100 WBC (Bld) 0.9 % Normal 0.0-1.0 [facility] Comment on above: Performed By: #### L [id number] ####[facility] ([facility])[address] [place] [address] Eosinophils (Bld) [#/Vol] 0.40 10*3/uL Normal 0.00-0.50 [facility] Comment on above: Performed By: #### L [id number] ####[facility] ([facility])[address] [place] [address] Eosinophils/100 WBC (Bld) 4.2 % Normal 0.0-6.0 [facility] Comment on above: Performed By: #### L [id number] ####[facility] ([facility])[address] [place] [address] Erythrocyte distribution width (RBC) [Ratio] 14.8 % Normal 11.5-15.0 [facility] Comment on above: Performed By: #### L [id number] ####[facility] ([facility])[address] [place] [address] ERYTHROCYTE MEAN CORPUSCULAR HEMOGLOBIN CONCENTRATION (G/DL) BY AUTOMATED 30.3 g/dL Low 32.0-35.0 [facility] Comment on above: Performed By: #### L [id number] ####[facility] ([facility])[address] [place] [address] Hematocrit (Bld) [Volume fraction] 50.9 % Normal 39.0-55.0 [facility] Comment on above: Performed By: #### L [id number] ####[facility] ([facility])[address] [place] [address] Hemoglobin (Bld) [Mass/Vol] 15.4 g/dL Normal 13.0-17.0 [facility] Comment on above: Performed By: #### L [id number] ####[facility] ([facility])[address] [place] [address] Immature granulocytes (Bld) [#/Vol] 0.06 10*3/uL Normal 0.00-0.20 [facility] Comment on above: Performed By: #### L [id number] ####[facility] ([facility])[address] [place] [address] Immature granulocytes/100 WBC (Bld) 0.6 % Normal 0.0-1.0 [facility] Comment on above: Performed By: #### L [id number] ####[facility] ([facility])[address] [place] [address] Lymphocytes (Bld) [#/Vol] 1.68 10*3/uL Normal 1.20-4.00 [facility] Comment on above: Performed By: #### L [id number] ####[facility] [place] [address] Lymphocytes/100 WBC (Bld) 17.6 % Low 20.0-45.0 [facility] Comment on above: Performed By: #### L [id number] ####[facility] [place] [address] MCH (RBC) [Entitic mass] 29.2 pg Normal 27.0-33.0 [facility] Comment on above: Performed By: #### L [id number] ####[facility] [place] [address] MCV (RBC) [Entitic vol] 96.6 fL Normal 82.0-98.0 [facility] Comment on above: Performed By: #### L [id number] ####[facility] ([facility] [place] [address] Monocytes (Bld) [#/Vol] 0.99 10*3/uL Normal 0.10-1.00 [facility] Comment on above: Performed By: #### L [id number] ####[facility] ([facility] [place] [address] Monocytes/100 WBC (Bld) 10.4 % Normal 5.0-12.0 [facility] Comment on above: Performed By: #### L [id number] ####[facility] ([facility])[address] [place] [address] Neutrophils (Bld) [#/Vol] 6.33 10*3/uL Normal 1.60-7.60 [facility] Comment on above: Performed By: #### L [id number] ####[facility] ([facility])[address] [place] [address] Neutrophils/100 WBC (Bld) 66.3 % Normal 40.0-72.0 [facility] Comment on above: Performed By: #### L [id number] ####[facility] ([facility])[address] [place] [address] NRBC (PER 100 WBCS) BY AUTOMATED COUNT 0.0 % Normal 0 [facility] Comment on above: Performed By: #### L [id number] ####[facility] ([facility])[address] [place] [address] PLATELETS (10*3/UL) IN BLOOD AUTOMATED COUNT 252 10*3/uL Normal 150-400 [facility] Comment on above: Performed By: #### L [id number] ####[facility] ([facility])[address] [place] [address] RBC (Bld) [#/Vol] 5.27 10*6/uL Normal 4.20-5.70 [facility] Comment on above: Performed By: #### L [id number] ####[facility] ([facility])[address] [place] [address] WBC (Bld) [#/Vol] 9.55 10*3/uL Normal 4.00-10.60 [facility] Comment on above: Performed By: #### L [id number] ####[facility] ([facility])[address] [place] [address] MAGNESIUMon 08-28-2024 Magnesium [Mass/Vol] 1.8 mg/dL Low 1.9-2.7 [facility] Comment on above: Performed By: #### L [id number] ####[facility] ([facility])[address] [place] [address] NURSNOTEon 08-28-2024 NURSNOTE Normal [facility] POCT GLUCOSE METER UNSOLICIT ED RESULTSon 08-28-2024 Glucose [Mass/Vol] 258 mg/dL High 70-105 [facility] Comment on above: Order Comment: Waive d Testing in the ED is performed under the ED CLIA certificate #[id number]. Result Comment: [email or web address] [email or web address] Performed By: #### L [id number] ####[facility] ([facility])[address] [place] [address] Glucose [Mass/Vol] 177 mg/dL High 70-105 [facility] Comment on above: Order Comment: Waive d Testing in the ED is performed under the ED CLIA certificate #[id number]. Result Comment: [email or web address] [email or web address] Performed By: #### L [id number] ####[facility] ([facility])[address] [place] [address] Glucose [Mass/Vol] 242 mg/dL High 70-105 [facility] Comment on above: Order Comment: Waive d Testing in the ED is performed under the ED CLIA certificate #[id number]. Result Comment: aall [email or web address] Performed By: #### L [id number] ####[facility] ([facility])[address] [place] [address] Glucose [Mass/Vol] 200 mg/dL High 70-105 [facility] Comment on above: Order Comment: Waive d Testing in the ED is performed under the ED CLIA certificate #[id number]. Result Comment: [email or web address] [email or web address] Performed By: #### L [id number] ####[facility] ([facility])[address] [place] [address] 30on 08-27-2024 30 Normal [facility] BASIC METABOLIC PANELon Anion gap [Moles/Vol] 6 mmol/L Low 7-20 [facility] Comment on above: Performed By: #### L [id number] ####[facility] ([facility])[address] [place] [address] Calcium [Mass/Vol] 9.8 mg/dL Normal 8.6-10.3 [facility] Comment on above: Performed By: #### L [id number] ####[facility] ([facility])[address] [place] [address] Chloride [Moles/Vol] 97 mmol/L Low 98-107 [facility] Comment on above: Performed By: #### L [id number] ####[facility] ([facility])[address] [place] [address] CO2 [Moles/Vol] 41 mmol/L Critically high 21-31 [facility] Comment on above: Performed By: #### L [id number] ####[facility] ([facility])[address] [place] [address] Creatinine [Mass/Vol] 0.81 mg/dL Normal 0.70-1.30 [facility] Comment on above: Performed By: #### L [id number] ####[facility] ([facility])[address] [place] [address] GLOMERULAR FILTRATION RATE ML/MIN/1.73 SQ M.PREDICTED 97.8 mL/min/1.73m*2 Normal >60.0 [facility] Comment on above: Result Comment: [facility]???s estimated glomerular filtration rate (eGFR) will [...] of individuals. Performed By: #### L [id number] ####[facility] ([facility])[address] [place] [address] Glucose [Mass/Vol] 187 mg/dL High 70-100 [facility] Comment on above: Performed By: #### L [id number] ####[facility] ([facility])[address] [place] [address] Potassium [Moles/Vol] 3.5 mmol/L Normal 3.5-5.1 [facility] Comment on above: Performed By: #### L [id number] ####[facility] ([facility])[address] [place] [address] Sodium [Moles/Vol] 140 mmol/L Normal 136-145 [facility] Comment on above: Performed By: #### L [id number] ####[facility] ([facility])[address] [place] [address] Urea nitrogen [Mass/Vol] 16 mg/dL Normal 7-25 [facility] Comment on above: Performed By: #### L [id number] ####[facility] [place] [address] UREA NITROGEN/CREATININE (MASS RATIO) IN SER/PLAS 19.8 Normal [facility] Comment on above: Performed By: #### L [id number] ####[facility] [place] [address] CBC WITH AUTO DIFFERENTIALon 08-27-2024 Basophils (Bld) [#/Vol] 0.06 10*3/uL Normal 0.00-0.20 [facility] Comment on above: Performed By: #### L [id number] ####[facility] ([facility])[address] [place] [address] Basophils/100 WBC (Bld) 0.7 % Normal 0.0-1.0 [facility] Comment on above: Performed By: #### L [id number] ####[facility] ([facility])[address] [place] [address] Eosinophils (Bld) [#/Vol] 0.38 10*3/uL Normal 0.00-0.50 [facility] Comment on above: Performed By: #### L [id number] ####[facility] ([facility])[address] [place] [address] Eosinophils/100 WBC (Bld) 4.7 % Normal 0.0-6.0 [facility] Comment on above: Performed By: #### L [id number] ####[facility] ([facility])[address] [place] [address] Erythrocyte distribution width (RBC) [Ratio] 14.6 % Normal 11.5-15.0 [facility] Comment on above: Performed By: #### L [id number] ####[facility] ([facility])[address] [place] [address] ERYTHROCYTE MEAN CORPUSCULAR HEMOGLOBIN CONCENTRATION (G/DL) BY AUTOMATED 29.7 g/dL Low 32.0-35.0 [facility] Comment on above: Performed By: #### L [id number] ####[facility] ([facility])[address] [place] [address] Hematocrit (Bld) [Volume fraction] 49.5 % Normal 39.0-55.0 [facility] Comment on above: Performed By: #### L [id number] ####[facility] ([facility])[address] [place] [address] Hemoglobin (Bld) [Mass/Vol] 14.7 g/dL Normal 13.0-17.0 [facility] Comment on above: Performed By: #### L [id number] ####[facility] [place] [address] Immature granulocytes (Bld) [#/Vol] 0.04 10*3/uL Normal 0.00-0.20 [facility] Comment on above: Performed By: #### L [id number] ####[facility] ([facility])[address] [place] [address] Immature granulocytes/100 WBC (Bld) 0.5 % Normal 0.0-1.0 [facility] Comment on above: Performed By: #### L [id number] ####[facility] ([facility])[address] [place] [address] Lymphocytes (Bld) [#/Vol] 1.42 10*3/uL Normal 1.20-4.00 [facility] Comment on above: Performed By: #### L [id number] ####[facility] ([facility])[address] [place] [address] Lymphocytes/100 WBC (Bld) 17.7 % Low 20.0-45.0 [facility] Comment on above: Performed By: #### L [id number] ####[facility] ([facility])[address] [place] [address] MCH (RBC) [Entitic mass] 28.9 pg Normal 27.0-33.0 [facility] Comment on above: Performed By: #### L [id number] ####[facility] ([facility])[address] [place] [address] MCV (RBC) [Entitic vol] 97.4 fL Normal 82.0-98.0 [facility] Comment on above: Performed By: #### L [id number] ####[facility] [place] [address] Monocytes (Bld) [#/Vol] 0.92 10*3/uL Normal 0.10-1.00 [facility] Comment on above: Performed By: #### L [id number] ####[facility] ([facility])[address] [place] [address] Monocytes/100 WBC (Bld) 11.5 % Normal 5.0-12.0 [facility] Comment on above: Performed By: #### L [id number] ####[facility] ([facility])[address] [place] [address] Neutrophils (Bld) [#/Vol] 5.19 10*3/uL Normal 1.60-7.60 [facility] Comment on above: Performed By: #### L [id number] ####[facility] [place] [address] Neutrophils/100 WBC (Bld) 64.9 % Normal 40.0-72.0 [facility] Comment on above: Performed By: #### L [id number] ####[facility] ([facility])[address] [place] [address] NRBC (PER 100 WBCS) BY AUTOMATED COUNT 0.0 % Normal 0 [facility] Comment on above: Performed By: #### L [id number] ####[facility] ([facility])[address] [place] [address] PLATELETS (10*3/UL) IN BLOOD AUTOMATED COUNT 209 10*3/uL Normal 150-400 [facility] Comment on above: Performed By: #### L [id number] ####[facility] [place] [address] RBC (Bld) [#/Vol] 5.08 10*6/uL Normal 4.20-5.70 [facility] Comment on above: Performed By: #### L [id number] ####[facility] ([facility])[address] [place] [address] WBC (Bld) [#/Vol] 8.01 10*3/uL Normal 4.00-10.60 [facility] Comment on above: Performed By: #### L [id number] ####[facility] ([facility])[address] [place] [address] MAGNESIUMon 08-27-2024 Magnesium [Mass/Vol] 1.6 mg/dL Low 1.9-2.7 [facility] Comment on above: Performed By: #### L [id number] ####[facility] ([facility])[address] [place] [address] POCT GLUCOSE METER UNSOLICIT ED RESULTSon 08-27-2024 Glucose [Mass/Vol] 144 mg/dL High 70-105 [facility] Comment on above: Order Comment: Waive d Testing in the ED is performed under the ED CLIA certificate #[id number]. Result Comment: [email or web address] kol Performed By: #### L [id number] ####[facility] ([facility])[address] [place] [address] Glucose [Mass/Vol] 204 mg/dL High 70-105 [facility] Comment on above: Order Comment: Waive d Testing in the ED is performed under the ED CLIA certificate #[id number]. Result Comment: [email or web address] [email or web address] Performed By: #### L [id number] ####[facility] ([facility])[address] [place] [address] Glucose [Mass/Vol] 230 mg/dL High 70-105 [facility] Comment on above: Order Comment: Waive d Testing in the ED is performed under the ED CLIA certificate #[id number]. Result Comment: [email or web address] Performed By: #### L [id number] ####[facility] ([facility])[address] [place] [address] Glucose [Mass/Vol] 174 mg/dL High 70-105 [facility] Comment on above: Order Comment: Waive d Testing in the ED is performed under the ED CLIA certificate #[id number]. Result Comment: ndub [email or web address] Performed By: #### L [id number] ####[facility] ([facility])[address] [place] [address] BASIC METABOLIC PANELon 02-0 Anion gap [Moles/Vol] 9 mmol/L Normal 7-20 [facility] Comment on above: Performed By: #### L [id number] ####[facility] ([facility])[address] [place] [address] Calcium [Mass/Vol] 9.4 mg/dL Normal 8.6-10.3 [facility] Comment on above: Performed By: #### L [id number] ####[facility] ([facility])[address] [place] [address] Chloride [Moles/Vol] 100 mmol/L Normal 98-107 [facility] Comment on above: Performed By: #### L [id number] ####[facility] ([facility])[address] [place] [address] CO2 [Moles/Vol] 36 mmol/L High 21-31 [facility] Comment on above: Performed By: #### L [id number] ####[facility] ([facility])[address] [place] [address] Creatinine [Mass/Vol] 0.78 mg/dL Normal 0.70-1.30 [facility] Comment on above: Performed By: #### L [id number] ####[facility] ([facility])[address] [place] [address] GLOMERULAR FILTRATION RATE ML/MIN/1.73 SQ M.PREDICTED 99.0 mL/min/1.73m*2 Normal >60.0 [facility] Comment on above: Result Comment: [facility]???s estimated glomerular filtration rate (eGFR) will [...] of individuals. Performed By: #### L [id number] ####[facility] ([facility])[address] [place] [address] Glucose [Mass/Vol] 156 mg/dL High 70-100 [facility] Comment on above: Performed By: #### L [id number] ####[facility] ([facility])[address] [place] [address] Potassium [Moles/Vol] 3.5 mmol/L Normal 3.5-5.1 [facility] Comment on above: Performed By: #### L [id number] ####[facility] [place] [address] Sodium [Moles/Vol] 141 mmol/L Normal 136-145 [facility] Comment on above: Performed By: #### L [id number] ####[facility] ([facility])[address] [place] [address] Urea nitrogen [Mass/Vol] 17 mg/dL Normal 7-25 [facility] Comment on above: Performed By: #### L [id number] ####[facility] [place] [address] UREA NITROGEN/CREATININE (MASS RATIO) IN SER/PLAS 21.8 Normal [facility] Comment on above: Performed By: #### L [id number] ####[facility] ([facility])[address] [place] [address] CBC WITH AUTO DIFFERENTIALon 08-26-2024 Basophils (Bld) [#/Vol] 0.06 10*3/uL Normal 0.00-0.20 [facility] Comment on above: Performed By: #### L [id number] ####[facility] ([facility])[address] [place] [address] Basophils/100 WBC (Bld) 0.8 % Normal 0.0-1.0 [facility] Comment on above: Performed By: #### L [id number] ####[facility] ([facility])[address] [place] [address] Eosinophils (Bld) [#/Vol] 0.39 10*3/uL Normal 0.00-0.50 [facility] Comment on above: Performed By: #### L [id number] ####[facility] ([facility])[address] [place] [address] Eosinophils/100 WBC (Bld) 5.4 % Normal 0.0-6.0 [facility] Comment on above: Performed By: #### L [id number] ####[facility] ([facility])[address] [place] [address] Erythrocyte distribution width (RBC) [Ratio] 14.7 % Normal 11.5-15.0 [facility] Comment on above: Performed By: #### L [id number] ####[facility] ([facility])[address] [place] [address] ERYTHROCYTE MEAN CORPUSCULAR HEMOGLOBIN CONCENTRATION (G/DL) BY AUTOMATED 30.4 g/dL Low 32.0-35.0 [facility] Comment on above: Performed By: #### L [id number] ####[facility] ([facility])[address] [place] [address] Hematocrit (Bld) [Volume fraction] 49.0 % Normal 39.0-55.0 [facility] Comment on above: Performed By: #### L [id number] ####[facility] ([facility])[address] [place] [address] Hemoglobin (Bld) [Mass/Vol] 14.9 g/dL Normal 13.0-17.0 [facility] Comment on above: Performed By: #### L [id number] ####[facility] ([facility])[address] [place] [address] Immature granulocytes (Bld) [#/Vol] 0.03 10*3/uL Normal 0.00-0.20 [facility] Comment on above: Performed By: #### L [id number] ####[facility] [place] [address] Immature granulocytes/100 WBC (Bld) 0.4 % Normal 0.0-1.0 [facility] Comment on above: Performed By: #### L [id number] ####[facility] [place] [address] Lymphocytes (Bld) [#/Vol] 1.21 10*3/uL Normal 1.20-4.00 [facility] Comment on above: Performed By: #### L [id number] ####[facility] [place] [address] Lymphocytes/100 WBC (Bld) 16.7 % Low 20.0-45.0 [facility] Comment on above: Performed By: #### L [id number] ####[facility] [place] [address] MCH (RBC) [Entitic mass] 29.2 pg Normal 27.0-33.0 [facility] Comment on above: Performed By: #### L [id number] ####[facility] ([facility])[address] [place] [address] MCV (RBC) [Entitic vol] 96.1 fL Normal 82.0-98.0 [facility] Comment on above: Performed By: #### L [id number] ####[facility] ([facility])[address] [place] [address] Monocytes (Bld) [#/Vol] 0.86 10*3/uL Normal 0.10-1.00 [facility] Comment on above: Performed By: #### L [id number] ####[facility] ([facility])[address] [address] Monocytes/100 WBC (Bld) 11.9 % Normal 5.0-12.0 [facility] Comment on above: Performed By: #### L [id number] ####[facility] ([facility])[address] [address] Neutrophils (Bld) [#/Vol] 4.70 10*3/uL Normal 1.60-7.60 [facility] Comment on above: Performed By: #### L [id number] ####[facility] ([facility])[address] [address] Neutrophils/100 WBC (Bld) 64.8 % Normal 40.0-72.0 [facility] Comment on above: Performed By: #### L [id number] ####[facility] ([facility])[address] [place] [address] NRBC (PER 100 WBCS) BY AUTOMATED COUNT 0.0 % Normal 0 [facility] Comment on above: Performed By: #### L [id number] ####[facility] [facility] ([facility])[address] [address] PLATELETS (10*3/UL) IN BLOOD AUTOMATED COUNT 208 10*3/uL Normal 150-400 [facility] Comment on above: Performed By: #### L [id number] ####[facility] ([facility])[address] [address] RBC (Bld) [#/Vol] 5.10 10*6/uL Normal 4.20-5.70 [facility] Comment on above: Performed By: #### L [id number] ####[facility] ([facility])[address] [address] WBC (Bld) [#/Vol] 7.25 10*3/uL Normal 4.00-10.60 [facility] Comment on above: Performed By: #### L [id number] ####[facility] [place] [address] MAGNESIUMon 08-26-2024 Magnesium [Mass/Vol] 1.8 mg/dL Low 1.9-2.7 [facility] Comment on above: Performed By: #### L [id number] ####[facility] ([facility])[address] [place] [address] POCT GLUCOSE METER UNSOLICIT ED RESULTSon 08-26-2024 Glucose [Mass/Vol] 246 mg/dL High 70-105 [facility] Comment on above: Order Comment: Waive d Testing in the ED is performed under the ED CLIA certificate #[id number]. Result Comment: [email or web address] Performed By: #### L [id number] ####[facility] ([facility])[address] [place] [address] Glucose [Mass/Vol] 204 mg/dL High 70-105 [facility] Comment on above: Order Comment: Waive d Testing in the ED is performed under the ED CLIA certificate #[id number]. Result Comment: [email or web address] Performed By: #### L [id number] ####[facility] ([facility])[address] [place] [address] Glucose [Mass/Vol] 219 mg/dL High 70-105 [facility] Comment on above: Order Comment: Waive d Testing in the ED is performed under the ED CLIA certificate #[id number]. Result Comment: [email or web address] Performed By: #### L [id number] ####[facility] [place] [address] Glucose [Mass/Vol] 163 mg/dL High 70-105 [facility] Comment on above: Order Comment: Waive d Testing in the ED is performed under the ED CLIA certificate #[id number]. Result Comment: [email or web address] Performed By: #### L [id number] ####[facility] ([facility])[address] [place] [address] 30on 08-25-2024 30 Normal [facility] BASIC METABOLIC PANELon 02-0 Anion gap [Moles/Vol] 10 mmol/L Normal 7-20 [facility] Comment on above: Performed By: #### L [id number] ####[facility] ([facility])[address] [place] [address] Calcium [Mass/Vol] 9.5 mg/dL Normal 8.6-10.3 [facility] Comment on above: Performed By: #### L [id number] ####[facility] ([facility])[address] [place] [address] Chloride [Moles/Vol] 97 mmol/L Low 98-107 [facility] Comment on above: Performed By: #### L [id number] ####[facility] ([facility])[address] [place] [address] CO2 [Moles/Vol] 34 mmol/L High 21-31 [facility] Comment on above: Performed By: #### L [id number] ####[facility] ([facility])[address] [place] [address] Creatinine [Mass/Vol] 0.87 mg/dL Normal 0.70-1.30 [facility] Comment on above: Performed By: #### L [id number] ####[facility] ([facility])[address] [place] [address] GLOMERULAR FILTRATION RATE ML/MIN/1.73 SQ M.PREDICTED 95.8 mL/min/1.73m*2 Normal >60.0 [facility] Comment on above: Result Comment: [facility]???s estimated glomerular filtration rate (eGFR) will [...] of individuals. Performed By: #### L [id number] ####[facility] ([facility])[address] [place] [address] Glucose [Mass/Vol] 178 mg/dL High 70-100 [facility] Comment on above: Performed By: #### L [id number] ####[facility] ([facility])[address] [place] [address] Potassium [Moles/Vol] 3.5 mmol/L Normal 3.5-5.1 [facility] Comment on above: Performed By: #### L [id number] ####[facility] ([facility])[address] [place] [address] Sodium [Moles/Vol] 137 mmol/L Normal 136-145 [facility] Comment on above: Performed By: #### L [id number] ####[facility] ([facility])[address] [place] [address] Urea nitrogen [Mass/Vol] 20 mg/dL Normal 7-25 [facility] Comment on above: Performed By: #### L [id number] ####[facility] ([facility])[address] [place] [address] UREA NITROGEN/CREATININE (MASS RATIO) IN SER/PLAS 23.0 Normal [facility] Comment on above: Performed By: #### L [id number] ####[facility] ([facility])[address] [place] [address] CBC WITH AUTO DIFFERENTIALon 08-25-2024 Basophils (Bld) [#/Vol] 0.04 10*3/uL Normal 0.00-0.20 [facility] Comment on above: Performed By: #### L [id number] ####[facility] ([facility])[address] [place] [address] Basophils/100 WBC (Bld) 0.6 % Normal 0.0-1.0 [facility] Comment on above: Performed By: #### L [id number] ####[facility] [place] [address] Eosinophils (Bld) [#/Vol] 0.22 10*3/uL Normal 0.00-0.50 [facility] Comment on above: Performed By: #### L [id number] ####[facility] ([facility])[address] [place] [address] Eosinophils/100 WBC (Bld) 3.1 % Normal 0.0-6.0 [facility] Comment on above: Performed By: #### L [id number] ####[facility] ([facility])[address] [place] [address] Erythrocyte distribution width (RBC) [Ratio] 14.6 % Normal 11.5-15.0 [facility] Comment on above: Performed By: #### L [id number] ####[facility] ([facility])[address] [place] [address] ERYTHROCYTE MEAN CORPUSCULAR HEMOGLOBIN CONCENTRATION (G/DL) BY AUTOMATED 30.6 g/dL Low 32.0-35.0 [facility] Comment on above: Performed By: #### L [id number] ####[facility] ([facility])[address] [place] [address] Hematocrit (Bld) [Volume fraction] 49.4 % Normal 39.0-55.0 [facility] Comment on above: Performed By: #### L [id number] ####[facility] ([facility])[address] [place] [address] Hemoglobin (Bld) [Mass/Vol] 15.1 g/dL Normal 13.0-17.0 [facility] Comment on above: Performed By: #### L [id number] ####[facility] [place] [address] Immature granulocytes (Bld) [#/Vol] 0.04 10*3/uL Normal 0.00-0.20 [facility] Comment on above: Performed By: #### L [id number] ####[facility] ([facility])[address] [place] [address] Immature granulocytes/100 WBC (Bld) 0.6 % Normal 0.0-1.0 [facility] Comment on above: Performed By: #### L [id number] ####[facility] [place] [address] Lymphocytes (Bld) [#/Vol] 1.08 10*3/uL Low 1.20-4.00 [facility] Comment on above: Performed By: #### L [id number] ####[facility] [place] [address] Lymphocytes/100 WBC (Bld) 15.1 % Low 20.0-45.0 [facility] Comment on above: Performed By: #### L [id number] ####[facility] [place] [address] MCH (RBC) [Entitic mass] 28.9 pg Normal 27.0-33.0 [facility] Comment on above: Performed By: #### L [id number] ####[facility] ([facility] [place] [address] MCV (RBC) [Entitic vol] 94.6 fL Normal 82.0-98.0 [facility] Comment on above: Performed By: #### L [id number] ####[facility] ([facility])[address] [place] [address] Monocytes (Bld) [#/Vol] 0.94 10*3/uL Normal 0.10-1.00 [facility] Comment on above: Performed By: #### L [id number] ####[facility] ([facility])[address] [place] [address] Monocytes/100 WBC (Bld) 13.1 % High 5.0-12.0 [facility] Comment on above: Performed By: #### L [id number] ####[facility] ([facility])[address] [place] [address] Neutrophils (Bld) [#/Vol] 4.85 10*3/uL Normal 1.60-7.60 [facility] Comment on above: Performed By: #### L [id number] ####[facility] ([facility])[address] [address] Neutrophils/100 WBC (Bld) 67.5 % Normal 40.0-72.0 [facility] Comment on above: Performed By: #### L [id number] ####[facility] ([facility])[address] [address] NRBC (PER 100 WBCS) BY AUTOMATED COUNT 0.0 % Normal 0 [facility] Comment on above: Performed By: #### L [id number] ####[facility] ([facility])[address] [address] PLATELETS (10*3/UL) IN BLOOD AUTOMATED COUNT 200 10*3/uL Normal 150-400 [facility] Comment on above: Performed By: #### L [id number] ####[facility] ([facility])[address] [place], [place] [address] RBC (Bld) [#/Vol] 5.22 10*6/uL Normal 4.20-5.70 [facility] Comment on above: Performed By: #### L [id number] ####[facility] ([facility])[address] [place] [address] WBC (Bld) [#/Vol] 7.17 10*3/uL Normal 4.00-10.60 [facility] Comment on above: Performed By: #### L [id number] ####[facility] ([facility])[address] [place] [address] MAGNESIUMon 08-25-2024 Magnesium [Mass/Vol] 1.6 mg/dL Low 1.9-2.7 [facility] Comment on above: Performed By: #### L [id number] ####[facility] [place] [address] POCT GLUCOSE METER UNSOLICIT ED RESULTSon 02-05-2025 Glucose [Mass/Vol] 154 mg/dL High 70-105 [facility] Comment on above: Order Comment: Waive d Testing in the ED is performed under the ED CLIA certificate #[id number]. Result Comment: [email or web address] Performed By: #### L [id number] ####[facility] ([facility])[address] [place] [address] Glucose [Mass/Vol] 196 mg/dL High 70-105 [facility] Comment on above: Order Comment: Waive d Testing in the ED is performed under the ED CLIA certificate #[id number]. Result Comment: [email or web address] [email or web address] Performed By: #### L [id number] ####[facility] ([facility])[address] [place] [address] Glucose [Mass/Vol] 313 mg/dL High 70-105 [facility] Comment on above: Order Comment: Waive d Testing in the ED is performed under the ED CLIA certificate #[id number]. Result Comment: [email or web address] [email or web address] Performed By: #### L [id number] ####[facility] ([facility] [place] [address] Glucose [Mass/Vol] 164 mg/dL High 70-105 [facility] Comment on above: Order Comment: Waive d Testing in the ED is performed under the ED CLIA certificate #[id number]. Result Comment: [email or web address] [email or web address] Performed By: #### L [id number] ####[facility] [place] [address] 30on 08-24-2024 30 Normal [facility] ANTI-XA (HEPARIN LEVEL)on HEPARIN UNFRACTIONATED (U/ML) IN PPP BY CHROMOGENIC METHOD 0.21 IU/mL Low 0.3-0.7 [facility] Comment on above: Result Comment: Tatyana roxaban and Apixaban will interfere with the anti Xa assay used to monitor UFH and LMWH. Performed By: #### L [id number] ####[facility] ([facility] [place] [address] B-TYPE NATRIURETIC PEPTIDEon 08-24-2024 Natriuretic peptide B (Bld) [Mass/Vol] 143 pg/mL High 0-100 [facility] Comment on above: Performed By: #### L [id number] ####[facility] ([facility])[address] [place] [address] BASIC METABOLIC PANELon Anion gap [Moles/Vol] 11 mmol/L Normal 7-20 [facility] Comment on above: Performed By: #### L [id number] ####[facility] ([facility])[address] [place] [address] Calcium [Mass/Vol] 9.7 mg/dL Normal 8.6-10.3 [facility] Comment on above: Performed By: #### L [id number] ####[facility] ([facility])[address] [place] [address] Chloride [Moles/Vol] 98 mmol/L Normal 98-107 [facility] Comment on above: Performed By: #### L [id number] ####[facility] ([facility])[address] [place] [address] CO2 [Moles/Vol] 33 mmol/L High 21-31 [facility] Comment on above: Performed By: #### L [id number] ####[facility] ([facility])[address] [place] [address] Creatinine [Mass/Vol] 0.93 mg/dL Normal 0.70-1.30 [facility] Comment on above: Performed By: #### L [id number] ####[facility] ([facility])[address] [place] [address] GLOMERULAR FILTRATION RATE ML/MIN/1.73 SQ M.PREDICTED 91.1 mL/min/1.73m*2 Normal >60.0 [facility] Comment on above: Result Comment: [facility]???s estimated glomerular filtration rate (eGFR) will [...] of individuals. Performed By: #### L [id number] ####[facility] ([facility])[address] [place] [address] Glucose [Mass/Vol] 166 mg/dL High 70-100 [facility] Comment on above: Performed By: #### L [id number] ####[facility] ([facility])[address] [place] [address] Potassium [Moles/Vol] 3.8 mmol/L Normal 3.5-5.1 [facility] Comment on above: Performed By: #### L [id number] ####[facility] ([facility])[address] [place] [address] Sodium [Moles/Vol] 138 mmol/L Normal 136-145 [facility] Comment on above: Performed By: #### L [id number] ####[facility] ([facility])[address] [place] [address] Urea nitrogen [Mass/Vol] 23 mg/dL Normal 7-25 [facility] Comment on above: Performed By: #### L [id number] ####[facility] ([facility])[address] [place] [address] UREA NITROGEN/CREATININE (MASS RATIO) IN SER/PLAS 24.7 Normal [facility] Comment on above: Performed By: #### L [id number] ####[facility] ([facility])[address] [place] [address] Anion gap [Moles/Vol] 10 mmol/L Normal 7-20 [facility] Comment on above: Performed By: #### L [id number] ####[facility] ([facility])[address] [place] [address] Calcium [Mass/Vol] 9.4 mg/dL Normal 8.6-10.3 [facility] Comment on above: Performed By: #### L [id number] ####[facility] ([facility])[address] [place] [address] Chloride [Moles/Vol] 98 mmol/L Normal 98-107 [facility] Comment on above: Performed By: #### L [id number] ####[facility] ([facility])[address] [place] [address] CO2 [Moles/Vol] 33 mmol/L High 21-31 [facility] Comment on above: Performed By: #### L [id number] ####[facility] ([facility])[address] [place] [address] Creatinine [Mass/Vol] 0.88 mg/dL Normal 0.70-1.30 [facility] Comment on above: Performed By: #### L [id number] ####[facility] ([facility])[address] [place] [address] GLOMERULAR FILTRATION RATE ML/MIN/1.73 SQ M.PREDICTED 95.4 mL/min/1.73m*2 Normal >60.0 [facility] Comment on above: Result Comment: [facility]???s estimated glomerular filtration rate (eGFR) will [...] of individuals. Performed By: #### L [id number] ####[facility] [place] [address] Glucose [Mass/Vol] 132 mg/dL High 70-100 [facility] Comment on above: Performed By: #### L [id number] ####[facility] [place] [address] Potassium [Moles/Vol] 2.9 mmol/L Invalid Interpretation Code 3.5-5.1 [facility] Comment on above: Performed By: #### L [id number] ####[facility] ([facility])[address] [place] [address] Sodium [Moles/Vol] 138 mmol/L Normal 136-145 [facility] Comment on above: Performed By: #### L [id number] ####[facility] ([facility])[address] [place] [address] Urea nitrogen [Mass/Vol] 24 mg/dL Normal 7-25 [facility] Comment on above: Performed By: #### L [id number] ####[facility] ([facility])[address] [place] [address] UREA NITROGEN/CREATININE (MASS RATIO) IN SER/PLAS 27.3 Normal [facility] Comment on above: Performed By: #### L [id number] ####[facility] ([facility])[address] [place] [address] CBC WITH AUTO DIFFERENTIALon 08-24-2024 Basophils (Bld) [#/Vol] 0.06 10*3/uL Normal 0.00-0.20 [facility] Comment on above: Performed By: #### L [id number] ####[facility] ([facility])[address] [place] [address] Basophils/100 WBC (Bld) 0.8 % Normal 0.0-1.0 [facility] Comment on above: Performed By: #### L [id number] ####[facility] [place] [address] Eosinophils (Bld) [#/Vol] 0.46 10*3/uL Normal 0.00-0.50 [facility] Comment on above: Performed By: #### L [id number] ####[facility] [place] [address] Eosinophils/100 WBC (Bld) 5.9 % Normal 0.0-6.0 [facility] Comment on above: Performed By: #### L [id number] ####[facility] [place] [address] Erythrocyte distribution width (RBC) [Ratio] 14.7 % Normal 11.5-15.0 [facility] Comment on above: Performed By: #### L [id number] ####[facility] ([facility])[address] [place] [address] ERYTHROCYTE MEAN CORPUSCULAR HEMOGLOBIN CONCENTRATION (G/DL) BY AUTOMATED 31.3 g/dL Low 32.0-35.0 [facility] Comment on above: Performed By: #### L [id number] ####[facility] ([facility])[address] [place] [address] Hematocrit (Bld) [Volume fraction] 50.8 % Normal 39.0-55.0 [facility] Comment on above: Performed By: #### L [id number] ####[facility] [place] [address] Hemoglobin (Bld) [Mass/Vol] 15.9 g/dL Normal 13.0-17.0 [facility] Comment on above: Performed By: #### L [id number] ####[facility] ([facility])[address] [place] [address] Immature granulocytes (Bld) [#/Vol] 0.04 10*3/uL Normal 0.00-0.20 [facility] Comment on above: Performed By: #### L [id number] ####[facility] ([facility])[address] [place] [address] Immature granulocytes/100 WBC (Bld) 0.5 % Normal 0.0-1.0 [facility] Comment on above: Performed By: #### L [id number] ####[facility] ([facility])[address] [place] [address] Lymphocytes (Bld) [#/Vol] 1.23 10*3/uL Normal 1.20-4.00 [facility] Comment on above: Performed By: #### L [id number] ####[facility] ([facility])[address] [place] [address] Lymphocytes/100 WBC (Bld) 15.8 % Low 20.0-45.0 [facility] Comment on above: Performed By: #### L [id number] ####[facility] [place] [address] MCH (RBC) [Entitic mass] 29.1 pg Normal 27.0-33.0 [facility] Comment on above: Performed By: #### L [id number] ####[facility] [place] [address] MCV (RBC) [Entitic vol] 92.9 fL Normal 82.0-98.0 [facility] Comment on above: Performed By: #### L [id number] ####[facility] ([facility])[address] [place] [address] Monocytes (Bld) [#/Vol] 0.96 10*3/uL Normal 0.10-1.00 [facility] Comment on above: Performed By: #### L [id number] ####[facility] ([facility])[address] [place] [address] Monocytes/100 WBC (Bld) 12.4 % High 5.0-12.0 [facility] Comment on above: Performed By: #### L [id number] ####[facility] ([facility])[address] [place] [address] Neutrophils (Bld) [#/Vol] 5.02 10*3/uL Normal 1.60-7.60 [facility] Comment on above: Performed By: #### L [id number] ####[facility] ([facility])[address] [place] [address] Neutrophils/100 WBC (Bld) 64.6 % Normal 40.0-72.0 [facility] Comment on above: Performed By: #### L [id number] ####[facility] ([facility])[address] [place] [address] NRBC (PER 100 WBCS) BY AUTOMATED COUNT 0.0 % Normal 0 [facility] Comment on above: Performed By: #### L [id number] ####[facility] ([facility])[address] [place] [address] PLATELETS (10*3/UL) IN BLOOD AUTOMATED COUNT 194 10*3/uL Normal 150-400 [facility] Comment on above: Performed By: #### L [id number] ####[facility] ([facility])[address] [place] [address] RBC (Bld) [#/Vol] 5.47 10*6/uL Normal 4.20-5.70 [facility] Comment on above: Performed By: #### L [id number] ####[facility] ([facility])[address] [place] [address] WBC (Bld) [#/Vol] 7.77 10*3/uL Normal 4.00-10.60 [facility] Comment on above: Performed By: #### L [id number] ####[facility] ([facility])[address] [place] [address] CONSULTon 08-24-2024 CONSULT Normal [facility] CT HEAD WO IV CONTRASTon CT HEAD WO IV CONTRAST Invalid Interpretation Code [facility] CTA CHEST W IV CONTRASTon CTA CHEST W IV CONTRAST [facility] MAGNESI[facility] 08-24-2024 Magnesium [Mass/Vol] 1.7 mg/dL Low 1.9-2.7 [facility] Comment on above: Performed By: #### L [id number] ####[facility] ([facility])[address] [place] [address] Magnesium [Mass/Vol] 1.4 mg/dL Low 1.9-2.7 [facility] Comment on above: Performed By: #### L [id number] ####[facility] ([facility])[address] [place] [address] NURSNOTEon 08-24-2024 NURSNOTE Normal [facility] NURSNOTE Normal [facility] PHOSPHORUSon 08-24-2024 Magnesium [Mass/Vol] 3.4 mg/dL Normal 2.5-5.0 [facility] Comment on above: Performed By: #### L [id number] ####[facility] [facility])[address] [place] [address] POCT GLUCOSE METER UNSOLICIT ED RESULTSon 08-24-2024 Glucose [Mass/Vol] 182 mg/dL High 70-105 [facility] Comment on above: Order Comment: Waive d Testing in the ED is performed under the ED CLIA certificate #[id number]. Result Comment: droc kol Performed By: #### L [id number] ####[facility] ([facility])[address] [place] [address] Glucose [Mass/Vol] 166 mg/dL High 70-105 [facility] Comment on above: Order Comment: Waive d Testing in the ED is performed under the ED CLIA certificate #[id number]. Result Comment: sbel cad Performed By: #### L [id number] ####[facility] ([facility])[address] [place] [address] Glucose [Mass/Vol] 150 mg/dL High 70-105 [facility] Comment on above: Order Comment: Waive d Testing in the ED is performed under the ED CLIA certificate #[id number]. Result Comment: besc obe Performed By: #### L [id number] ####[facility] ([facility])[address] [place] [address] Glucose [Mass/Vol] 136 mg/dL High 70-105 [facility] Comment on above: Order Comment: Waive d Testing in the ED is performed under the ED CLIA certificate #[id number]. Result Comment: swey [email or web address] Value Noted Performed By: #### L [id number] ####[facility] ([facility])[address] [place] [address] BASIC METABOLIC PANELon 02-0 Anion gap [Moles/Vol] 10 mmol/L Normal 7-20 [facility] Comment on above: Performed By: #### L [id number] ####[facility] [place] [address] Calcium [Mass/Vol] 9.8 mg/dL Normal 8.6-10.3 [facility] Comment on above: Performed By: #### L [id number] ####[facility] [place] [address] Chloride [Moles/Vol] 99 mmol/L Normal 98-107 [facility] Comment on above: Performed By: #### L [id number] ####[facility] ([facility])[address] [place] [address] CO2 [Moles/Vol] 33 mmol/L High 21-31 [facility] Comment on above: Performed By: #### L [id number] ####[facility] ([facility])[address] [place] [address] Creatinine [Mass/Vol] 0.94 mg/dL Normal 0.70-1.30 [facility] Comment on above: Performed By: #### L [id number] ####[facility] ([facility])[address] [place] [address] GLOMERULAR FILTRATION RATE ML/MIN/1.73 SQ M.PREDICTED 90.0 mL/min/1.73m*2 Normal >60.0 [facility] Comment on above: Result Comment: [facility]???s estimated glomerular filtration rate (eGFR) will [...] of individuals. Performed By: #### L [id number] ####[facility] ([facility])[address] [place] [address] Glucose [Mass/Vol] 274 mg/dL High 70-100 [facility] Comment on above: Performed By: #### L [id number] ####[facility] ([facility])[address] [place] [address] Potassium [Moles/Vol] 3.8 mmol/L Normal 3.5-5.1 [facility] Comment on above: Performed By: #### L [id number] ####[facility] ([facility])[address] [place] [address] Sodium [Moles/Vol] 138 mmol/L Normal 136-145 [facility] Comment on above: Performed By: #### L [id number] ####[facility] ([facility])[address] [place] [address] Urea nitrogen [Mass/Vol] 31 mg/dL High 7-25 [facility] Comment on above: Performed By: #### L [id number] ####[facility] ([facility])[address] [place] [address] UREA NITROGEN/CREATININE (MASS RATIO) IN SER/PLAS 33.0 Normal [facility] Comment on above: Performed By: #### L [id number] ####[facility] ([facility])[address] [place] [address] CBC WITH AUTO DIFFERENTIALon 08-23-2024 Basophils (Bld) [#/Vol] 0.06 10*3/uL Normal 0.00-0.20 [facility] Comment on above: Performed By: #### L [id number] ####[facility] ([facility])[address] [place] [address] Basophils/100 WBC (Bld) 0.9 % Normal 0.0-1.0 [facility] Comment on above: Performed By: #### L [id number] ####[facility] ([facility])[address] [place] [address] Eosinophils (Bld) [#/Vol] 0.34 10*3/uL Normal 0.00-0.50 [facility] Comment on above: Performed By: #### L [id number] ####[facility] ([facility])[address] [place] [address] Eosinophils/100 WBC (Bld) 4.8 % Normal 0.0-6.0 [facility] Comment on above: Performed By: #### L [id number] ####[facility] [place] [address] Erythrocyte distribution width (RBC) [Ratio] 14.7 % Normal 11.5-15.0 [facility] Comment on above: Performed By: #### L [id number] ####[facility] ([facility])[address] [place] [address] ERYTHROCYTE MEAN CORPUSCULAR HEMOGLOBIN CONCENTRATION (G/DL) BY AUTOMATED 31.8 g/dL Low 32.0-35.0 [facility] Comment on above: Performed By: #### L [id number] ####[facility] ([facility])[address] [place] [address] Hematocrit (Bld) [Volume fraction] 52.5 % Normal 39.0-55.0 [facility] Comment on above: Performed By: #### L [id number] ####[facility] ([facility])[address] [place] [address] Hemoglobin (Bld) [Mass/Vol] 16.7 g/dL Normal 13.0-17.0 [facility] Comment on above: Performed By: #### L [id number] ####[facility] ([facility])[address] [place] [address] Immature granulocytes (Bld) [#/Vol] 0.05 10*3/uL Normal 0.00-0.20 [facility] Comment on above: Performed By: #### L [id number] ####[facility] ([facility])[address] [place] [address] Immature granulocytes/100 WBC (Bld) 0.7 % Normal 0.0-1.0 [facility] Comment on above: Performed By: #### L [id number] ####[facility] ([facility])[address] [place] [address] Lymphocytes (Bld) [#/Vol] 1.15 10*3/uL Low 1.20-4.00 [facility] Comment on above: Performed By: #### L [id number] ####[facility] ([facility])[address] [place] [address] Lymphocytes/100 WBC (Bld) 16.4 % Low 20.0-45.0 [facility] Comment on above: Performed By: #### L [id number] ####[facility] ([facility])[address] [place] [address] MCH (RBC) [Entitic mass] 29.0 pg Normal 27.0-33.0 [facility] Comment on above: Performed By: #### L [id number] ####[facility] ([facility])[address] [place] [address] MCV (RBC) [Entitic vol] 91.1 fL Normal 82.0-98.0 [facility] Comment on above: Performed By: #### L [id number] ####[facility] ([facility])[address] [place] [address] Monocytes (Bld) [#/Vol] 0.85 10*3/uL Normal 0.10-1.00 [facility] Comment on above: Performed By: #### L [id number] ####[facility] ([facility])[address] [place] [address] Monocytes/100 WBC (Bld) 12.1 % High 5.0-12.0 [facility] Comment on above: Performed By: #### L [id number] ####[facility] ([facility])[address] [place] [address] Neutrophils (Bld) [#/Vol] 4.58 10*3/uL Normal 1.60-7.60 [facility] Comment on above: Performed By: #### L [id number] ####[facility] ([facility])[address] [place] [address] Neutrophils/100 WBC (Bld) 65.1 % Normal 40.0-72.0 [facility] Comment on above: Performed By: #### L [id number] ####[facility] [place] [address] NRBC (PER 100 WBCS) BY AUTOMATED COUNT 0.0 % Normal 0 [facility] Comment on above: Performed By: #### L [id number] ####[facility] [place], [place] [address] PLATELETS (10*3/UL) IN BLOOD AUTOMATED COUNT 190 10*3/uL Normal 150-400 [facility] Comment on above: Performed By: #### L [id number] ####[facility] [place], [place] [address] RBC (Bld) [#/Vol] 5.76 10*6/uL High 4.20-5.70 [facility] Comment on above: Performed By: #### L [id number] ####[facility] ([facility])[address] [place], [place] [address] WBC (Bld) [#/Vol] 7.03 10*3/uL Normal 4.00-10.60 [facility] Comment on above: Performed By: #### L [id number] ####[facility] ([facility])[address] [place], [place] [address] CONSULTon 08-23-2024 CONSULT Normal [facility] LIPID PANELon 08-23-2024 CHOL/HDL 7.8 mg/dL Normal [facility] Comment on above: Performed By: #### L [id number] ####[facility] ([facility])[address] [place] [address] Cholesterol [Mass/Vol] 195 mg/dL Normal 120-200 [facility] Comment on above: Performed By: #### L [id number] ####[facility] [place] [address] Magnesium [Mass/Vol] 177 mg/dL High 40-149 [facility] Comment on above: Result Comment: TRIG LYCERIDE REFERENCE RANGE:20 YEARS AND OLDER CARDIOVASCULAR RISKLESS THAN 150 mg/dL LOW [id number] TO 199 mg/dL BORDERLINE [id number] mg/dL AND GREATER HIGH RISK Performed By: #### L [id number] ####[facility] ([facility] [place] [address] Magnesium [Mass/Vol] 135 mg/dL Normal 0-160 [facility] Comment on above: Performed By: #### L [id number] ####[facility] ([facility])[address] [place] [address] Magnesium [Mass/Vol] 25 mg/dL Normal 23-92 [facility] Comment on above: Performed By: #### L [id number] ####[facility] [place] [address] NON HDL CHOL. (LDL+VLDL) 170 Normal [facility] Comment on above: Performed By: #### L [id number] ####[facility] ([facility])[address] [place] [address] TOTAL VLDL-C 35 mg/dL Normal 0-40 [facility] Comment on above: Performed By: #### L [id number] ####[facility] [place] [address] POCT GLUCOSE METER UNSOLICIT ED RESULTSon 08-23-2024 Glucose [Mass/Vol] 169 mg/dL High 70-105 [facility] Comment on above: Order Comment: Waive d Testing in the ED is performed under the ED CLIA certificate #[id number]. Result Comment: enoch tti Performed By: #### L [id number] ####[facility] [facility] [address] Glucose [Mass/Vol] 183 mg/dL High 70-105 [facility] Comment on above: Order Comment: Waive d Testing in the ED is performed under the ED CLIA certificate #[id number]. Result Comment: ezab ors2 Performed By: #### L [id number] ####[facility] ([facility])[address] [place] [address] Glucose [Mass/Vol] 283 mg/dL High 70-105 [facility] Comment on above: Order Comment: Waive d Testing in the ED is performed under the ED CLIA certificate #[id number]. Result Comment: ezab ors2 Performed By: #### L [id number] ####[facility] ([facility])[address] [place] [address] Glucose [Mass/Vol] 258 mg/dL High 70-105 [facility] Comment on above: Order Comment: Waive d Testing in the ED is performed under the ED CLIA certificate #[id number]. Result Comment: tful ks2 Performed By: #### L [id number] ####[facility] ([facility])[address] [facility] [address] 30on 08-22-2024 30 Normal [facility] ANTI-XA (HEPARIN LEVEL)on HEPARIN UNFRACTIONATED (U/ML) IN PPP BY CHROMOGENIC METHOD 0.31 IU/mL Normal 0.3-0.7 [facility] Comment on above: Result Comment: Lamar roxaban and Apixaban will interfere with the anti Xa assay used to monitor UFH and LMWH. Performed By: #### L [id number] ####[facility] ([facility])[address] [place] [address] BASIC METABOLIC PANELon Anion gap [Moles/Vol] 10 mmol/L Normal 7-20 [facility] Comment on above: Performed By: #### L [id number] ####[facility] ([facility])[address] [place] [address] Calcium [Mass/Vol] 9.6 mg/dL Normal 8.6-10.3 [facility] Comment on above: Performed By: #### L [id number] ####[facility] ([facility])[address] [place] [address] Chloride [Moles/Vol] 102 mmol/L Normal 98-107 [facility] Comment on above: Performed By: #### L [id number] ####[facility] ([facility])[address] [place] [address] CO2 [Moles/Vol] 32 mmol/L High 21-31 [facility] Comment on above: Performed By: #### L [id number] ####[facility] ([facility])[address] [place] [address] Creatinine [Mass/Vol] 1.01 mg/dL Normal 0.70-1.30 [facility] Comment on above: Performed By: #### L [id number] ####[facility] ([facility])[address] [place] [address] GLOMERULAR FILTRATION RATE ML/MIN/1.73 SQ M.PREDICTED 82.5 mL/min/1.73m*2 Normal >60.0 [facility] Comment on above: Result Comment: [facility]???s estimated glomerular filtration rate (eGFR) will [...] of individuals. Performed By: #### L [id number] ####[facility] ([facility])[address] [place] [address] Glucose [Mass/Vol] 263 mg/dL High 70-100 [facility] Comment on above: Performed By: #### L [id number] ####[facility] ([facility])[address] [place] [address] Potassium [Moles/Vol] 3.7 mmol/L Normal 3.5-5.1 [facility] Comment on above: Performed By: #### L [id number] ####[facility] [place] [address] Sodium [Moles/Vol] 140 mmol/L Normal 136-145 [facility] Comment on above: Performed By: #### L [id number] ####[facility] [place] [address] Urea nitrogen [Mass/Vol] 33 mg/dL High 7- [facility] Comment on above: Performed By: #### L [id number] ####[facility] ([facility])[address] [place] [address] UREA NITROGEN/CREATININE (MASS RATIO) IN SER/PLAS 32.7 Normal [facility] Comment on above: Performed By: #### L [id number] ####[facility] [place] [address] CBC WITH AUTO DIFFERENTIALon 08-22-2024 Basophils (Bld) [#/Vol] 0.05 10*3/uL Normal 0.00-0.20 [facility] Comment on above: Performed By: #### L [id number] ####[facility] [place] [address] Basophils/100 WBC (Bld) 0.5 % Normal 0.0-1.0 [facility] Comment on above: Performed By: #### L [id number] ####[facility] ([facility])[address] [place] [address] Eosinophils (Bld) [#/Vol] 0.36 10*3/uL Normal 0.00-0.50 [facility] Comment on above: Performed By: #### L [id number] ####[facility] ([facility])[address] [place] [address] Eosinophils/100 WBC (Bld) 3.9 % Normal 0.0-6.0 [facility] Comment on above: Performed By: #### L [id number] ####[facility] [place] [address] Erythrocyte distribution width (RBC) [Ratio] 14.7 % Normal 11.5-15.0 [facility] Comment on above: Performed By: #### L [id number] ####[facility] [place] [address] ERYTHROCYTE MEAN CORPUSCULAR HEMOGLOBIN CONCENTRATION (G/DL) BY AUTOMATED 30.8 g/dL Low 32.0-35.0 [facility] Comment on above: Performed By: #### L [id number] ####[facility] [place] [address] Hematocrit (Bld) [Volume fraction] 52.9 % Normal 39.0-55.0 [facility] Comment on above: Performed By: #### L [id number] ####[facility] ([facility])[address] [place] [address] Hemoglobin (Bld) [Mass/Vol] 16.3 g/dL Normal 13.0-17.0 [facility] Comment on above: Performed By: #### L [id number] ####[facility] ([facility])[address] [place] [address] Immature granulocytes (Bld) [#/Vol] 0.07 10*3/uL Normal 0.00-0.20 [facility] Comment on above: Performed By: #### L [id number] ####[facility] ([facility])[address] [place] [address] Immature granulocytes/100 WBC (Bld) 0.7 % Normal 0.0-1.0 [facility] Comment on above: Performed By: #### L [id number] ####[facility] ([facility])[address] [place] [address] Lymphocytes (Bld) [#/Vol] 1.16 10*3/uL Low 1.20-4.00 [facility] Comment on above: Performed By: #### L [id number] ####[facility] ([facility])[address] [address] Lymphocytes/100 WBC (Bld) 12.4 % Low 20.0-45.0 [facility] Comment on above: Performed By: #### L [id number] ####[facility] [address] MCH (RBC) [Entitic mass] 28.8 pg Normal 27.0-33.0 [facility] Comment on above: Performed By: #### L [id number] ####[facility] [place], [place] [address] MCV (RBC) [Entitic vol] 93.5 fL Normal 82.0-98.0 [facility] Comment on above: Performed By: #### L [id number] ####[facility] ([facility])[address] [place] [address] Monocytes (Bld) [#/Vol] 1.21 10*3/uL High 0.10-1.00 [facility] Comment on above: Performed By: #### L [id number] ####[facility] ([facility])[address] [place] [address] Monocytes/100 WBC (Bld) 12.9 % High 5.0-12.0 [facility] Comment on above: Performed By: #### L [id number] ####[facility] ([facility])[address] [place] [address] Neutrophils (Bld) [#/Vol] 6.50 10*3/uL Normal 1.60-7.60 [facility] Comment on above: Performed By: #### L [id number] ####[facility] ([facility])[address] [place] [address] Neutrophils/100 WBC (Bld) 69.6 % Normal 40.0-72.0 [facility] Comment on above: Performed By: #### L [id number] ####[facility] ([facility])[address] [place] [address] NRBC (PER 100 WBCS) BY AUTOMATED COUNT 0.0 % Normal 0 [facility] Comment on above: Performed By: #### L [id number] ####[facility] ([facility])[address] [place] [address] PLATELETS (10*3/UL) IN BLOOD AUTOMATED COUNT 187 10*3/uL Normal 150-400 [facility] Comment on above: Performed By: #### L [id number] ####[facility] ([facility])[address] [place] [address] RBC (Bld) [#/Vol] 5.66 10*6/uL Normal 4.20-5.70 [facility] Comment on above: Performed By: #### L [id number] ####[facility] ([facility])[address] [place], [place] [address] WBC (Bld) [#/Vol] 9.35 10*3/uL Normal 4.00-10.60 [facility] Comment on above: Performed By: #### L [id number] ####[facility] ([facility])[address] [place] [address] POCT GLUCOSE METER UNSOLICIT ED RESULTSon 08-22-2024 Glucose [Mass/Vol] 256 mg/dL High 70-105 [facility] Comment on above: Order Comment: Waive d Testing in the ED is performed under the ED CLIA certificate #[id number]. Result Comment: ezab ors2 Performed By: #### L [id number] ####[facility] ([facility])[address] [place], [place] [address] Glucose [Mass/Vol] 277 mg/dL High 70-105 [facility] Comment on above: Order Comment: Waive d Testing in the ED is performed under the ED CLIA certificate #[id number]. Result Comment: ezab ors2 Performed By: #### L [id number] ####[facility] ([facility])[address] [place] [address] ANTI-XA (HEPARIN LEVEL)on HEPARIN UNFRACTIONATED (U/ML) IN PPP BY CHROMOGENIC METHOD 0.30 IU/mL Normal 0.3-0.7 [facility] Comment on above: Result Comment: Lamar roxaban and Apixaban will interfere with the anti Xa assay used to monitor UFH and LMWH. Performed By: #### L [id number] ####[facility] ([facility])[address] [place] [address] ARTERIAL BLOOD GAS WITH CO-O XIMETRYon 08-21-2024 Base excess Calc (Bld) [Moles/Vol] 6.7 mmol/L High -2.0-3.0 [facility] Comment on above: Performed By: #### L [id number] ####[facility] [id number] [place] [address] [facility] CARBOXYHEMOGLOBIN/HEMOGL OBIN TOTAL % IN BLOOD 2.0 % Normal 0.0-3.0 [facility] Comment on above: Performed By: #### L [id number] ####[facility] [id number] [place] [address] [facility] CO2 (Bld) [Partial pressure] 43 mm[Hg] Normal 35-48 [facility] Comment on above: Performed By: #### L [id number] ####[facility] [id number] [place] [address] [facility] DEOXYGENATED HEMOGLOBIN IN BLOOD 4.9 % Normal 1-5 [facility] Comment on above: Performed By: #### L [id number] ####[facility] [id number] [place] [address] [place] FIO2 50 % Normal [facility] Comment on above: Performed By: #### L [id number] ####[facility] [id number] [place] [address] [facility] HCO3 (Bld) [Moles/Vol] 31.3 mmol/L High 21.0-28.0 [facility] Comment on above: Performed By: #### L [id number] ####[facility]PIR[facility] [id number] [place] [address] [facility] Hemoglobin (Bld) [Mass/Vol] 16.5 g/dL Normal 11.7-17.4 [facility] Comment on above: Performed By: #### L [id number] ####[facility]PIR[facility] [id number] [place] [address] [facility] METHEMOGLOBIN/100 IN BLOOD 0.7 % Normal 0.0-1.5 [facility] Comment on above: Performed By: #### L [id number] ####[facility] RESPIR[facility] [id number] [place] [address] [facility] Oxygen (Bld) [Partial pressure] 68 mm[Hg] Low 83-100 [facility] Comment on above: Performed By: #### L [id number] ####[facility] RESPIR[facility] [id number] [place] [id number] [facility] OXYGEN SATURATION (%) IN ARTERIAL BLOOD 95.0 % Normal 94.0-98.0 [facility] Comment on above: Performed By: #### L [id number] ####[facility]IR[facility] [id number] [place] [address] [facility] OXYGENATED HEMOGLOBIN IN BLOOD 92.4 % Normal 90.0-95.0 [facility] Comment on above: Performed By: #### L [id number] ####[facility] [id number] [place] [address] [facility] pH (Bld) 7.47 [pH] High 7.35-7.45 [facility] Comment on above: Performed By: #### L [id number] ####[facility]PIR[facility] [id number] [place] [address] [facility] SOURCE OF OXYGEN Bi-PAP Normal [facility] Comment on above: Performed By: #### L [id number] ####[facility]IR[facility] [id number] [place] [address] [facility] Base excess Calc (Bld) [Moles/Vol] 5.1 mmol/L High -2.0-3.0 [facility] Comment on above: Performed By: #### L [id number] ####[facility] RESPIR[facility] [id number] [place] [address] [facility] CARBOXYHEMOGLOBIN/HEMOGL OBIN TOTAL % IN BLOOD 1.9 % Normal 0.0-3.0 [facility] Comment on above: Performed By: #### L [id number] ####[facility] RESPIR[facility] [id number] [place] [address] [facility] CO2 (Bld) [Partial pressure] 46 mm[Hg] Normal 35-48 [facility] Comment on above: Performed By: #### L [id number] ####[facility] RESPIR[facility] [id number] [place] [address] [facility] DEOXYGENATED HEMOGLOBIN IN BLOOD 15.8 % Critically high 1-5 [facility] Comment on above: Performed By: #### L [id number] ####[facility]IR[facility] [id number] [place] [address] [facility] HCO3 (Bld) [Moles/Vol] 30.5 mmol/L High 21.0-28.0 [facility] Comment on above: Performed By: #### L [id number] ####[facility] RESPIR[facility] [id number] [place] [address] [facility] Hemoglobin (Bld) [Mass/Vol] 16.4 g/dL Normal 11.7-17.4 [facility] Comment on above: Performed By: #### L [id number] ####[facility] RESPIR[facility] [id number] [place] [address] [facility] LPM 15 Normal [facility] Comment on above: Performed By: #### L [id number] ####[facility] RESPIR[facility] [id number] [place] [address] [place] METHEMOGLOBIN/100 IN BLOOD 0.6 % Normal 0.0-1.5 [facility] Comment on above: Performed By: #### L [id number] ####[facility]PIR[facility] [id number] [place] [address] [facility] Oxygen (Bld) [Partial pressure] 53 mm[Hg] Invalid Interpretation Code 83-100 [facility] Comment on above: Performed By: #### L [id number] ####[facility] RESPIR[facility] [id number] [place] [address] [facility] OXYGEN SATURATION (%) IN ARTERIAL BLOOD 83.8 % Invalid Interpretation Code 94.0-98.0 [facility] Comment on above: Performed By: #### L [id number] ####[facility] RESPIR[facility] [id number] [place] [address] [facility] OXYGENATED HEMOGLOBIN IN BLOOD 81.7 % Invalid Interpretation Code 90.0-95.0 [facility] Comment on above: Performed By: #### L [id number] ####[facility] RESPIR[facility] [id number] [place] [address] [facility] pH (Bld) 7.43 [pH] Normal 7.35-7.45 [facility] Comment on above: Performed By: #### L [id number] ####[facility] RESPIR[facility] [id number] [place] [address] [facility] SOURCE OF OXYGEN SALTER Normal [facility] Comment on above: Performed By: #### L [id number] ####[facility]IR[facility] [id number] [place] [address] [facility] ARTERIAL BLOOD GAS WITH IONI ZED CALCIUMon 08-21-2024 Base excess Calc (Bld) [Moles/Vol] 6.2 mmol/L High -2.0-3.0 [facility] Comment on above: Performed By: #### L [id number] ####[facility] RESPIR[facility] [id number] [place] [address] [facility] CALCIUM IONIZED (MMOL/L) IN BLOOD 1.30 mmol/L Normal 1.15-1.33 [facility] Comment on above: Performed By: #### L [id number] ####[facility] RESPIR[facility] [id number] [place] [address] [facility] CO2 (Bld) [Partial pressure] 45 mm[Hg] Normal 35-48 [facility] Comment on above: Performed By: #### L [id number] ####[facility] RESPIR[facility] [id number] FIO2 50 % Normal [facility] Comment on above: Performed By: #### L [id number] ####[facility]IR[facility] [id number] [address] HCO3 (Bld) [Moles/Vol] 31.3 mmol/L High 21.0-28.0 [facility] Comment on above: Performed By: #### L [id number] ####[facility] RESPIRAT[facility] [id number] [address] Oxygen (Bld) [Partial pressure] 70 mm[Hg] Low 83-100 [facility] Comment on above: Performed By: #### L [id number] ####[facility] RESPIRAT[facility] [id number] [address] OXYGEN SATURATION (%) IN ARTERIAL BLOOD 94.9 % Normal 94.0-98.0 [facility] Comment on above: Performed By: #### L [id number] ####[facility] RESPIR[facility] [id number] [address] PEEP 8 cmH2O Normal [facility] Comment on above: Performed By: #### L [id number] ####[facility] RESPIR[facility] [id number] [address] pH (Bld) 7.45 [pH] Normal 7.35-7.45 [facility] Comment on above: Performed By: #### L [id number] ####[facility] RESPIR[facility] [id number] [address] PRESSURE SUPPORT 14 Normal [facility] Comment on above: Performed By: #### L [id number] ####[facility] RESPIR[facility] [id number] [address] SOURCE OF OXYGEN Bi-PAP Normal [facility] Comment on above: Performed By: #### L [id number] ####[facility] RESPIR[facility] [id number] [address] BASIC METABOLIC PANELon 02-0 Anion gap [Moles/Vol] 11 mmol/L Normal 7-20 [facility] Comment on above: Performed By: #### L [id number] ####[facility] LAB (BEAKER)[address] [place] [address] Calcium [Mass/Vol] 9.4 mg/dL Normal 8.6-10.3 [facility] Comment on above: Performed By: #### L [id number] ####[facility] (BEAKER)[address] [place] [address] Chloride [Moles/Vol] 101 mmol/L Normal 98-107 [facility] Comment on above: Performed By: #### L [id number] ####[facility] [place] [address] CO2 [Moles/Vol] 30 mmol/L Normal 21-31 [facility] Comment on above: Performed By: #### L [id number] ####[facility] ([facility])[address] [place] [address] Creatinine [Mass/Vol] 1.05 mg/dL Normal 0.70-1.30 [facility] Comment on above: Performed By: #### L [id number] ####[facility] ([facility])[address] [place] [address] GLOMERULAR FILTRATION RATE ML/MIN/1.73 SQ M.PREDICTED 78.8 mL/min/1.73m*2 Normal >60.0 [facility] Comment on above: Result Comment: [facility]???s estimated glomerular filtration rate (eGFR) will [...] of individuals. Performed By: #### L [id number] ####[facility] ([facility] [place] [address] Glucose [Mass/Vol] 269 mg/dL High 70-100 [facility] Comment on above: Performed By: #### L [id number] ####[facility] ([facility])[address] [place] [address] Potassium [Moles/Vol] 4.0 mmol/L Normal 3.5-5.1 [facility] Comment on above: Performed By: #### L [id number] ####[facility] ([facility])[address] [place] [address] Sodium [Moles/Vol] 138 mmol/L Normal 136-145 [facility] Comment on above: Performed By: #### L [id number] ####[facility] ([facility])[address] [place] [address] Urea nitrogen [Mass/Vol] 35 mg/dL High 7-25 [facility] Comment on above: Performed By: #### L [id number] ####[facility] ([facility])[address] [place] [address] UREA NITROGEN/CREATININE (MASS RATIO) IN SER/PLAS 33.3 Normal [facility] Comment on above: Performed By: #### L [id number] ####[facility] ([facility])[address] [place] [address] CALCIUM, IONIZEDon CALCIUM IONIZED (MMOL/L) IN BLOOD 1.29 mmol/L Normal 1.15-1.33 [facility] Comment on above: Performed By: #### C ALCIUM, IONIZED ####[facility] RES[facility]IR[facility] [id number] [place] [address] [place] CBC WITH AUTO DIFFERENTIALon 08-21-2024 Basophils (Bld) [#/Vol] 0.05 10*3/uL Normal 0.00-0.20 [facility] Comment on above: Performed By: #### L [id number] ####[facility] ([facility] [place] [address] Basophils/100 WBC (Bld) 0.6 % Normal 0.0-1.0 [facility] Comment on above: Performed By: #### L [id number] ####[facility] (BEAKER)[address] [place] [address] Eosinophils (Bld) [#/Vol] 0.43 10*3/uL Normal 0.00-0.50 [facility] Comment on above: Performed By: #### L [id number] ####[facility] ([facility] [place] [address] Eosinophils/100 WBC (Bld) 5.2 % Normal 0.0-6.0 [facility] Comment on above: Performed By: #### L [id number] ####[facility] ([facility] [place] [address] Erythrocyte distribution width (RBC) [Ratio] 14.8 % Normal 11.5-15.0 [facility] Comment on above: Performed By: #### L [id number] ####[facility] ([facility])[address] [place] [address] ERYTHROCYTE MEAN CORPUSCULAR HEMOGLOBIN CONCENTRATION (G/DL) BY AUTOMATED 31.1 g/dL Low 32.0-35.0 [facility] Comment on above: Performed By: #### L [id number] ####[facility] (BEAKER)[address] [place] [address] Hematocrit (Bld) [Volume fraction] 52.1 % Normal 39.0-55.0 [facility] Comment on above: Performed By: #### L [id number] ####[facility] (BEAKER)[address] [place] [address] Hemoglobin (Bld) [Mass/Vol] 16.2 g/dL Normal 13.0-17.0 [facility] Comment on above: Performed By: #### L [id number] ####[facility] (BEAKER)[address] [place] [address] Immature granulocytes (Bld) [#/Vol] 0.06 10*3/uL Normal 0.00-0.20 [facility] Comment on above: Performed By: #### L [id number] ####[facility] (BEAKER)[address] [place] [address] Immature granulocytes/100 WBC (Bld) 0.7 % Normal 0.0-1.0 [facility] Comment on above: Performed By: #### L [id number] ####[facility] (BEAKER)[address] [place] [address] Lymphocytes (Bld) [#/Vol] 1.10 10*3/uL Low 1.20-4.00 [facility] Comment on above: Performed By: #### L [id number] ####[facility] ([facility] [place] [address] Lymphocytes/100 WBC (Bld) 13.3 % Low 20.0-45.0 [facility] Comment on above: Performed By: #### L [id number] ####[facility] (BEAKER)[address] [place] [address] MCH (RBC) [Entitic mass] 29.1 pg Normal 27.0-33.0 [facility] Comment on above: Performed By: #### L [id number] ####[facility] ([facility])[address] [place] [address] MCV (RBC) [Entitic vol] 93.7 fL Normal 82.0-98.0 [facility] Comment on above: Performed By: #### L [id number] ####[facility] (BEAKER)[address] [place] [address] Monocytes (Bld) [#/Vol] 0.92 10*3/uL Normal 0.10-1.00 [facility] Comment on above: Performed By: #### L [id number] ####[facility] (BEAKER)[address] [place] [address] Monocytes/100 WBC (Bld) 11.1 % Normal 5.0-12.0 [facility] Comment on above: Performed By: #### L [id number] ####[facility] ([facility] [place] [address] Neutrophils (Bld) [#/Vol] 5.72 10*3/uL Normal 1.60-7.60 [facility] Comment on above: Performed By: #### L [id number] ####[facility] ([facility] [place] [address] Neutrophils/100 WBC (Bld) 69.1 % Normal 40.0-72.0 [facility] Comment on above: Performed By: #### L [id number] ####[facility] ([facility])[address] [place] [address] NRBC (PER 100 WBCS) BY AUTOMATED COUNT 0.0 % Normal 0 [facility] Comment on above: Performed By: #### L [id number] ####[facility] ([facility])[address] [place] [address] PLATELETS (10*3/UL) IN BLOOD AUTOMATED COUNT 199 10*3/uL Normal 150-400 [facility] Comment on above: Performed By: #### L [id number] ####[facility] ([facility])[address] [place] [address] RBC (Bld) [#/Vol] 5.56 10*6/uL Normal 4.20-5.70 [facility] Comment on above: Performed By: #### L [id number] ####[facility] ([facility])[address] [place] [address] WBC (Bld) [#/Vol] 8.28 10*3/uL Normal 4.00-10.60 [facility] Comment on above: Performed By: #### L [id number] ####[facility] ([facility] [place] [address] CT BRAIN PERFUSIONon 025 CT BRAIN PERFUSION Invalid Interpretation Code [facility] CT HEAD WO IV CONTRASTon CT HEAD WO IV CONTRAST Normal [facility] HEAD W IV CONTRASTon CTA HEAD W IV CONTRAST Normal [facility] CTA NECK W IV CONTRASTon CTA NECK W IV CONTRAST Normal [facility] MAGNESIUMon 08-21-2024 Magnesium [Mass/Vol] 1.8 mg/dL Low 1.9-2.7 [facility] Comment on above: Performed By: #### L [id number] ####[facility] ([facility])[address] [place] [address] MRSA/MSSA DNA NASALon 2024 MRSA DNA Positive Abnormal Negative [facility] Comment on above: Order Comment: Testi [...] preclude nasal colonization. Performed By: #### L [id number] ####[facility] ([facility])[address] [place] [address] MSSA DNA Negative Normal Negative [facility] Comment on above: Order Comment: Testi [...] preclude nasal colonization. Performed By: #### L [id number] ####[facility] ([facility])[address] [place] [address] PHOSPHORUSon 08-21-2024 Magnesium [Mass/Vol] 2.5 mg/dL Normal 2.5-5.0 [facility] Comment on above: Performed By: #### L [id number] ####[facility] ([facility])[address] [place] [address] POCT GLUCOSE METER UNSOLICIT ED RESULTSon 08-21-2024 Glucose [Mass/Vol] 230 mg/dL High 70-105 [facility] Comment on above: Order Comment: Waive d Testing in the ED is performed under the ED CLIA certificate #[id number]. Result Comment: [email or web address] Performed By: #### L [id number] ####[facility] ([facility])[address] [address] Glucose [Mass/Vol] 226 mg/dL High 70-105 [facility] Comment on above: Order Comment: Waive d Testing in the ED is performed under the ED CLIA certificate #[id number]. Result Comment: [email or web address] Performed By: #### L [id number] ####[facility] ([facility])[address] [facility] [address] Glucose [Mass/Vol] 229 mg/dL High 70-105 [facility] Comment on above: Order Comment: Waive d Testing in the ED is performed under the ED CLIA certificate #[id number]. Result Comment: [email or web address] Performed By: #### L [id number] ####[facility] ([facility])[address] [facility] [address] Glucose [Mass/Vol] 234 mg/dL High 70-105 [facility] Comment on above: Order Comment: Waive d Testing in the ED is performed under the ED CLIA certificate #[id number]. Result Comment: [email or web address] Performed By: #### L [id number] ####[facility] ([facility] [facility] [place] [address] POTASSIUM, WHOLE BLOODon Potassium [Moles/Vol] 3.3 mmol/L Low 3.5-5.1 [facility] Comment on above: Performed By: #### P OTASSIUM, WHOLE BLOOD ####[facility] RES[facility]IR[facility] [id number] [facility] [place] [address] [place] SODIUM, WHOLE BLOODon 2024 SODIUM, WHOLE BLOOD 137 Normal 136-145 [facility] Comment on above: Performed By: #### S ODIUM, WHOLE BLOOD ####[facility] RES[facility]IR[facility] [id number] [place] [address] [place] 30on 08-20-2024 30 Normal [facility] ANTI-XA (HEPARIN LEVEL)on HEPARIN UNFRACTIONATED (U/ML) IN PPP BY CHROMOGENIC METHOD 0.30 IU/mL Normal 0.3-0.7 [facility] Comment on above: Result Comment: Lamar roxaban and Apixaban will interfere with the anti Xa assay used to monitor UFH and LMWH. Performed By: #### L [id number] ####[facility] ([facility] [address] BASIC METABOLIC PANELon 07-23 Anion gap [Moles/Vol] 8 mmol/L Normal 7-20 [facility] Comment on above: Performed By: #### L [id number] ####[facility] (BEAKER)[address] [place] [address] Calcium [Mass/Vol] 9.4 mg/dL Normal 8.6-10.3 [facility] Comment on above: Performed By: #### L [id number] ####[facility] (BEAKER)[address] [place] [address] Chloride [Moles/Vol] 99 mmol/L Normal 98-107 [facility] Comment on above: Performed By: #### L [id number] ####[facility] ([facility]AKER)[address] [place] [address] CO2 [Moles/Vol] 34 mmol/L High 21-31 [facility] Comment on above: Performed By: #### L [id number] ####[facility] (BEAKER)[address] [place] [address] Creatinine [Mass/Vol] 0.97 mg/dL Normal 0.70-1.30 [facility] Comment on above: Performed By: #### L [id number] ####[facility] (BEAKER)[address] [place] [address] GLOMERULAR FILTRATION RATE ML/MIN/1.73 SQ M.PREDICTED 86.6 mL/min/1.73m*2 Normal >60.0 [facility] Comment on above: Result Comment: [facility]???s estimated glomerular filtration rate (eGFR) will [...] of individuals. Performed By: #### L [id number] ####[facility] ([facility])[address] [place] [address] Glucose [Mass/Vol] 267 mg/dL High 70-100 [facility] Comment on above: Performed By: #### L [id number] ####[facility] ([facility])[address] [place] [address] Potassium [Moles/Vol] 3.9 mmol/L Normal 3.5-5.1 [facility] Comment on above: Performed By: #### L [id number] ####[facility] ([facility])[address] [place] [address] Sodium [Moles/Vol] 137 mmol/L Normal 136-145 [facility] Comment on above: Performed By: #### L [id number] ####[facility] ([facility])[address] [place] [address] Urea nitrogen [Mass/Vol] 33 mg/dL High 7-25 [facility] Comment on above: Performed By: #### L [id number] ####[facility] ([facility])[address] [place] [address] UREA NITROGEN/CREATININE (MASS RATIO) IN SER/PLAS 34.0 Normal [facility] Comment on above: Performed By: #### L [id number] ####[facility] ([facility] [place] [address] CBC WITH AUTO DIFFERENTIALon 08-20-2024 Basophils (Bld) [#/Vol] 0.04 10*3/uL Normal 0.00-0.20 [facility] Comment on above: Performed By: #### L [id number] ####[facility] ([facility] [place] [address] Basophils/100 WBC (Bld) 0.4 % Normal 0.0-1.0 [facility] Comment on above: Performed By: #### L [id number] ####[facility] ([facility])[address] [place] [address] Eosinophils (Bld) [#/Vol] 0.58 10*3/uL High 0.00-0.50 [facility] Comment on above: Performed By: #### L [id number] ####[facility] ([facility])[address] [place] [address] Eosinophils/100 WBC (Bld) 5.6 % Normal 0.0-6.0 [facility] Comment on above: Performed By: #### L [id number] ####[facility] ([facility])[address] [place] [address] Erythrocyte distribution width (RBC) [Ratio] 15.1 % High 11.5-15.0 [facility] Comment on above: Performed By: #### L [id number] ####[facility] ([facility] [place] [address] ERYTHROCYTE MEAN CORPUSCULAR HEMOGLOBIN CONCENTRATION (G/DL) BY AUTOMATED 30.5 g/dL Low 32.0-35.0 [facility] Comment on above: Performed By: #### L [id number] ####[facility] ([facility] [place] [address] Hematocrit (Bld) [Volume fraction] 52.1 % Normal 39.0-55.0 [facility] Comment on above: Performed By: #### L [id number] ####[facility] (BEAKER)[address] [place] [address] Hemoglobin (Bld) [Mass/Vol] 15.9 g/dL Normal 13.0-17.0 [facility] Comment on above: Performed By: #### L [id number] ####[facility] (BEAKER)[address] [place] [address] Immature granulocytes (Bld) [#/Vol] 0.07 10*3/uL Normal 0.00-0.20 [facility] Comment on above: Performed By: #### L [id number] ####[facility] (BEAKER)[address] [place] [address] Immature granulocytes/100 WBC (Bld) 0.7 % Normal 0.0-1.0 [facility] Comment on above: Performed By: #### L [id number] ####[facility] (BEAKER)[address] [place] [address] Lymphocytes (Bld) [#/Vol] 0.94 10*3/uL Low 1.20-4.00 [facility] Comment on above: Performed By: #### L [id number] ####[facility] (BEAKER)[address] [place] [address] Lymphocytes/100 WBC (Bld) 9.1 % Low 20.0-45.0 [facility] Comment on above: Performed By: #### L [id number] ####[facility] (BEAKER)[address] [place] [address] MCH (RBC) [Entitic mass] 29.0 pg Normal 27.0-33.0 [facility] Comment on above: Performed By: #### L [id number] ####[facility] (BEAKER)[address] [place] [address] MCV (RBC) [Entitic vol] 94.9 fL Normal 82.0-98.0 [facility] Comment on above: Performed By: #### L [id number] ####[facility] (BEAKER)[address] [place] [address] Monocytes (Bld) [#/Vol] 0.95 10*3/uL Normal 0.10-1.00 [facility] Comment on above: Performed By: #### L [id number] ####[facility] (BEAKER)[address] [place] [address] Monocytes/100 WBC (Bld) 9.2 % Normal 5.0-12.0 [facility] Comment on above: Performed By: #### L [id number] ####[facility] (BEAKER)[address] [place] [address] Neutrophils (Bld) [#/Vol] 7.72 10*3/uL High 1.60-7.60 [facility] Comment on above: Performed By: #### L [id number] ####[facility] (BEAKER)[address] [place] [address] Neutrophils/100 WBC (Bld) 75.0 % High 40.0-72.0 [facility] Comment on above: Performed By: #### L [id number] ####[facility] (BEAKER)[address] [place], [place] [address] NRBC (PER 100 WBCS) BY AUTOMATED COUNT 0.0 % Normal 0 [facility] Comment on above: Performed By: #### L [id number] ####[facility] (BEAKER)[address] [place] [address] PLATELETS (10*3/UL) IN BLOOD AUTOMATED COUNT 209 10*3/uL Normal 150-400 [facility] Comment on above: Performed By: #### L [id number] ####[facility] (BEAKER)[address] [place] [address] RBC (Bld) [#/Vol] 5.49 10*6/uL Normal 4.20-5.70 [facility] Comment on above: Performed By: #### L [id number] ####[facility] (BEAKER)[address] [place] [address] WBC (Bld) [#/Vol] 10.30 10*3/uL Normal 4.00-10.60 [facility] Comment on above: Performed By: #### L [id number] ####[facility] ([facility])[address] [place] [address] MAGNESIUMon 08-20-2024 Magnesium [Mass/Vol] 1.9 mg/dL Normal 1.9-2.7 [facility] Comment on above: Performed By: #### L [id number] ####[facility] ([facility])[address] [place] [address] PHOSPHORUSon 08-20-2024 Magnesium [Mass/Vol] 2.1 mg/dL Low 2.5-5.0 [facility] Comment on above: Performed By: #### L [id number] ####[facility] ([facility])[address] [place] [address] POCT GLUCOSE METER UNSOLICIT ED RESULTSon 08-20-2024 Glucose [Mass/Vol] 268 mg/dL High 70-105 [facility] Comment on above: Order Comment: Waive d Testing in the ED is performed under the ED CLIA certificate #[id number]. Result Comment: fariba bowling Performed By: #### L [id number] ####[facility] ([facility])[address] [place] [address] 30on 08-19-2024 30 Normal [facility] 30 Normal [facility] ANTI-XA (HEPARIN LEVEL)on HEPARIN UNFRACTIONATED (U/ML) IN PPP BY CHROMOGENIC METHOD 0.41 IU/mL Normal 0.3-0.7 [facility] Comment on above: Result Comment: Lamar roxaban and Apixaban will interfere with the anti Xa assay used to monitor UFH and LMWH. Performed By: #### L [id number] ####[facility] ([facility])[address] [place] [address] BASIC METABOLIC PANELon 07-23 Anion gap [Moles/Vol] 8 mmol/L Normal 7-20 [facility] Comment on above: Performed By: #### L [id number] ####[facility] [place] [address] Calcium [Mass/Vol] 8.9 mg/dL Normal 8.6-10.3 [facility] Comment on above: Performed By: #### L [id number] ####[facility] [place] [address] Chloride [Moles/Vol] 99 mmol/L Normal 98-107 [facility] Comment on above: Performed By: #### L [id number] ####[facility] [place] [address] CO2 [Moles/Vol] 37 mmol/L High 21-31 [facility] Comment on above: Performed By: #### L [id number] ####[facility] ([facility])[address] [place] [address] Creatinine [Mass/Vol] 1.00 mg/dL Normal 0.70-1.30 [facility] Comment on above: Performed By: #### L [id number] ####[facility] ([facility])[address] [place] [address] GLOMERULAR FILTRATION RATE ML/MIN/1.73 SQ M.PREDICTED 83.5 mL/min/1.73m*2 Normal >60.0 [facility] Comment on above: Result Comment: [facility]???s estimated glomerular filtration rate (eGFR) will [...] of individuals. Performed By: #### L [id number] ####[facility] [place] [address] Glucose [Mass/Vol] 219 mg/dL High 70-100 [facility] Comment on above: Performed By: #### L [id number] ####[facility] ([facility])[address] [place] [address] Potassium [Moles/Vol] 3.9 mmol/L Normal 3.5-5.1 [facility] Comment on above: Performed By: #### L [id number] ####[facility] ([facility])[address] [place] [address] Sodium [Moles/Vol] 140 mmol/L Normal 136-145 [facility] Comment on above: Performed By: #### L [id number] ####[facility] ([facility])[address] [place] [address] Urea nitrogen [Mass/Vol] 28 mg/dL High 7-25 [facility] Comment on above: Performed By: #### L [id number] ####[facility] ([facility])[address] [place] [address] UREA NITROGEN/CREATININE (MASS RATIO) IN SER/PLAS 28.0 Normal [facility] Comment on above: Performed By: #### L [id number] ####[facility] ([facility])[address] [place] [address] CBC WITH AUTO DIFFERENTIALon 08-19-2024 Basophils (Bld) [#/Vol] 0.04 10*3/uL Normal 0.00-0.20 [facility] Comment on above: Performed By: #### L [id number] ####[facility] ([facility])[address] [place] [address] Basophils/100 WBC (Bld) 0.4 % Normal 0.0-1.0 [facility] Comment on above: Performed By: #### L [id number] ####[facility] ([facility])[address] [place] [address] Eosinophils (Bld) [#/Vol] 0.62 10*3/uL High 0.00-0.50 [facility] Comment on above: Performed By: #### L [id number] ####[facility] [place] [address] Eosinophils/100 WBC (Bld) 6.7 % High 0.0-6.0 [facility] Comment on above: Performed By: #### L [id number] ####[facility] ([facility])[address] [place] [address] Erythrocyte distribution width (RBC) [Ratio] 15.4 % High 11.5-15.0 [facility] Comment on above: Performed By: #### L [id number] ####[facility] ([facility])[address] [place] [address] ERYTHROCYTE MEAN CORPUSCULAR HEMOGLOBIN CONCENTRATION (G/DL) BY AUTOMATED 29.8 g/dL Low 32.0-35.0 [facility] Comment on above: Performed By: #### L [id number] ####[facility] ([facility])[address] [place] [address] Hematocrit (Bld) [Volume fraction] 49.4 % Normal 39.0-55.0 [facility] Comment on above: Performed By: #### L [id number] ####[facility] [place] [address] Hemoglobin (Bld) [Mass/Vol] 14.7 g/dL Normal 13.0-17.0 [facility] Comment on above: Performed By: #### L [id number] ####[facility] ([facility] [place] [address] Immature granulocytes (Bld) [#/Vol] 0.06 10*3/uL Normal 0.00-0.20 [facility] Comment on above: Performed By: #### L [id number] ####[facility] (BEAKER)[address] [place] [address] Immature granulocytes/100 WBC (Bld) 0.7 % Normal 0.0-1.0 [facility] Comment on above: Performed By: #### L [id number] ####[facility] (BEAKER)[address] [place] [address] Lymphocytes (Bld) [#/Vol] 0.86 10*3/uL Low 1.20-4.00 [facility] Comment on above: Performed By: #### L [id number] ####[facility] (BEAKER)[address] [place] [address] Lymphocytes/100 WBC (Bld) 9.3 % Low 20.0-45.0 [facility] Comment on above: Performed By: #### L [id number] ####[facility] [place] [address] MCH (RBC) [Entitic mass] 28.9 pg Normal 27.0-33.0 [facility] Comment on above: Performed By: #### L [id number] ####[facility] ([facility])[address] [place] [address] MCV (RBC) [Entitic vol] 97.2 fL Normal 82.0-98.0 [facility] Comment on above: Performed By: #### L [id number] ####[facility] ([facility] [place] [address] Monocytes (Bld) [#/Vol] 0.94 10*3/uL Normal 0.10-1.00 [facility] Comment on above: Performed By: #### L [id number] ####[facility] ([facility])[address] [place] [address] Monocytes/100 WBC (Bld) 10.2 % Normal 5.0-12.0 [facility] Comment on above: Performed By: #### L [id number] ####[facility] [place] [address] Neutrophils (Bld) [#/Vol] 6.68 10*3/uL Normal 1.60-7.60 [facility] Comment on above: Performed By: #### L [id number] ####[facility] ([facility])[address] [place] [address] Neutrophils/100 WBC (Bld) 72.7 % High 40.0-72.0 [facility] Comment on above: Performed By: #### L [id number] ####[facility] ([facility])[address] [place] [address] NRBC (PER 100 WBCS) BY AUTOMATED COUNT 0.0 % Normal 0 [facility] Comment on above: Performed By: #### L [id number] ####[facility] ([facility])[address] [place] [address] PLATELETS (10*3/UL) IN BLOOD AUTOMATED COUNT 198 10*3/uL Normal 150-400 [facility] Comment on above: Performed By: #### L [id number] ####[facility] ([facility])[address] [place] [address] RBC (Bld) [#/Vol] 5.08 10*6/uL Normal 4.20-5.70 [facility] Comment on above: Performed By: #### L [id number] ####[facility] ([facility])[address] [place] [address] WBC (Bld) [#/Vol] 9.20 10*3/uL Normal 4.00-10.60 [facility] Comment on above: Performed By: #### L [id number] ####[facility] ([facility])[address] [place] [address] CONSULTon 08-19-2024 CONSULT Normal [facility] MAGNESIUMon 08-19-2024 Magnesium [Mass/Vol] 1.9 mg/dL Normal 1.9-2.7 [facility] Comment on above: Performed By: #### L [id number] ####[facility] ([facility])[address] [place] [address] PHOSPHORUSon 08-19-2024 Magnesium [Mass/Vol] 2.9 mg/dL Normal 2.5-5.0 [facility] Comment on above: Performed By: #### L [id number] ####[facility] ([facility] [place] [address] POCT GLUCOSE METER UNSOLICIT ED RESULTSon 08-19-2024 Glucose [Mass/Vol] 239 mg/dL High 70-105 [facility] Comment on above: Order Comment: Waive d Testing in the ED is performed under the ED CLIA certificate #[id number]. Result Comment: [email or web address] [email or web address] Performed By: #### L [id number] ####[facility] ([facility])[address] [place] [address] Glucose [Mass/Vol] 251 mg/dL High 70-105 [facility] Comment on above: Order Comment: Waive d Testing in the ED is performed under the ED CLIA certificate #[id number]. Result Comment: [email or web address] Performed By: #### L [id number] ####[facility] ([facility])[address] [place] [address] Glucose [Mass/Vol] 185 mg/dL High 70-105 [facility] Comment on above: Order Comment: Waive d Testing in the ED is performed under the ED CLIA certificate #[id number]. Result Comment: [email or web address] [email or web address] Performed By: #### L [id number] ####[facility] ([facility])[address] [place] [address] TRIGLYCERIDESon 08-19-2024 FASTING? UNKNOWN Normal [facility] Comment on above: Performed By: #### L [id number] ####[facility] ([facility])[address] [place] [address] Magnesium [Mass/Vol] 192 mg/dL High 40-149 [facility] Comment on above: Result Comment: TRIG LYCERIDE REFERENCE RANGE:20 YEARS AND OLDER CARDIOVASCULAR RISKLESS THAN 150 mg/dL LOW [id number] TO 199 mg/dL BORDERLINE [id number] mg/dL AND GREATER HIGH RISK Performed By: #### L [id number] ####[facility] ([facility] [place] [address] ANTI-XA (HEPARIN LEVEL)on HEPARIN UNFRACTIONATED (U/ML) IN PPP BY CHROMOGENIC METHOD 0.50 IU/mL Normal 0.3-0.7 [facility] Comment on above: Result Comment: Lamar roxaban and Apixaban will interfere with the anti Xa assay used to monitor UFH and LMWH. Performed By: #### L [id number] ####[facility] (BEAKER)[address] [place] [address] HEPARIN UNFRACTIONATED (U/ML) IN PPP BY CHROMOGENIC METHOD 0.60 IU/mL Normal 0.3-0.7 [facility] Comment on above: Result Comment: Tatyana roxaban and Apixaban will interfere with the anti Xa assay used to monitor UFH and LMWH. Performed By: #### L [id number] ####[facility] ([facility] [place] [address] BASIC METABOLIC PANELon 07-22 Anion gap [Moles/Vol] 8 mmol/L Normal 7-20 [facility] Comment on above: Performed By: #### L [id number] ####[facility] (BEAKER)[address] [place] [address] Calcium [Mass/Vol] 8.7 mg/dL Normal 8.6-10.3 [facility] Comment on above: Performed By: #### L [id number] ####[facility] (BEAKER)[address] [place] [address] Chloride [Moles/Vol] 98 mmol/L Normal 98-107 [facility] Comment on above: Performed By: #### L [id number] ####[facility] (BEAKER)[address] [place] [address] CO2 [Moles/Vol] 41 mmol/L Critically high 21-31 [facility] Comment on above: Performed By: #### L [id number] ####[facility] (BEAKER)[address] [place] [address] Creatinine [Mass/Vol] 1.05 mg/dL Normal 0.70-1.30 [facility] Comment on above: Performed By: #### L [id number] ####[facility] ([facility])[address] [place] [address] GLOMERULAR FILTRATION RATE ML/MIN/1.73 SQ M.PREDICTED 78.8 mL/min/1.73m*2 Normal >60.0 [facility] Comment on above: Result Comment: [facility]???s estimated glomerular filtration rate (eGFR) will [...] of individuals. Performed By: #### L [id number] ####[facility] ([facility])[address] [place] [address] Glucose [Mass/Vol] 201 mg/dL High 70-100 [facility] Comment on above: Performed By: #### L [id number] ####[facility] ([facility])[address] [place] [address] Potassium [Moles/Vol] 3.7 mmol/L Normal 3.5-5.1 [facility] Comment on above: Performed By: #### L [id number] ####[facility] ([facility])[address] [place] [address] Sodium [Moles/Vol] 143 mmol/L Normal 136-145 [facility] Comment on above: Performed By: #### L [id number] ####[facility] ([facility])[address] [place] [address] Urea nitrogen [Mass/Vol] 25 mg/dL Normal 7-25 [facility] Comment on above: Performed By: #### L [id number] ####[facility] ([facility])[address] [place] [address] UREA NITROGEN/CREATININE (MASS RATIO) IN SER/PLAS 23.8 Normal [facility] Comment on above: Performed By: #### L [id number] ####[facility] (BEAKER)[address] [place] [address] CBC WITH AUTO DIFFERENTIALon 08-18-2024 Basophils (Bld) [#/Vol] 0.03 10*3/uL Normal 0.00-0.20 [facility] Comment on above: Performed By: #### L [id number] ####[facility] [place] [address] Basophils/100 WBC (Bld) 0.3 % Normal 0.0-1.0 [facility] Comment on above: Performed By: #### L [id number] ####[facility] (BEAKER)[address] [place] [address] Eosinophils (Bld) [#/Vol] 0.45 10*3/uL Normal 0.00-0.50 [facility] Comment on above: Performed By: #### L [id number] ####[facility] (BEAKER)[address] [place] [address] Eosinophils/100 WBC (Bld) 5.0 % Normal 0.0-6.0 [facility] Comment on above: Performed By: #### L [id number] ####[facility] (BEAKER)[address] [place] [address] Erythrocyte distribution width (RBC) [Ratio] 15.5 % High 11.5-15.0 [facility] Comment on above: Performed By: #### L [id number] ####[facility] (BEAKER)[address] [place] [address] ERYTHROCYTE MEAN CORPUSCULAR HEMOGLOBIN CONCENTRATION (G/DL) BY AUTOMATED 29.7 g/dL Low 32.0-35.0 [facility] Comment on above: Performed By: #### L [id number] ####[facility] (BEAKER)[address] [place] [address] Hematocrit (Bld) [Volume fraction] 49.5 % Normal 39.0-55.0 [facility] Comment on above: Performed By: #### L [id number] ####[facility] (BEAKER)[address] [place] [address] Hemoglobin (Bld) [Mass/Vol] 14.7 g/dL Normal 13.0-17.0 [facility] Comment on above: Performed By: #### L [id number] ####[facility] (BEAKER)[address] [place] [address] Immature granulocytes (Bld) [#/Vol] 0.05 10*3/uL Normal 0.00-0.20 [facility] Comment on above: Performed By: #### L [id number] ####[facility] (BEAKER)[address] [place] [address] Immature granulocytes/100 WBC (Bld) 0.6 % Normal 0.0-1.0 [facility] Comment on above: Performed By: #### L [id number] ####[facility] (BEAKER)[address] [place] [address] Lymphocytes (Bld) [#/Vol] 0.93 10*3/uL Low 1.20-4.00 [facility] Comment on above: Performed By: #### L [id number] ####[facility] (BEAKER)[address] [place] [address] Lymphocytes/100 WBC (Bld) 10.4 % Low 20.0-45.0 [facility] Comment on above: Performed By: #### L [id number] ####[facility] (BEAKER)[address] [place] [address] MCH (RBC) [Entitic mass] 29.2 pg Normal 27.0-33.0 [facility] Comment on above: Performed By: #### L [id number] ####[facility] (BEAKER)[address] [place] [address] MCV (RBC) [Entitic vol] 98.2 fL High 82.0-98.0 [facility] Comment on above: Performed By: #### L [id number] ####[facility] (BEAKER)[address] [place] [address] Monocytes (Bld) [#/Vol] 1.06 10*3/uL High 0.10-1.00 [facility] Comment on above: Performed By: #### L [id number] ####[facility] (BEAKER)[address] [place] [place] [address] Monocytes/100 WBC (Bld) 11.9 % Normal 5.0-12.0 [facility] Comment on above: Performed By: #### L [id number] ####[facility] [place] [address] Neutrophils (Bld) [#/Vol] 6.41 10*3/uL Normal 1.60-7.60 [facility] Comment on above: Performed By: #### L [id number] ####[facility] ([facility])[address] [place] [address] Neutrophils/100 WBC (Bld) 71.8 % Normal 40.0-72.0 [facility] Comment on above: Performed By: #### L [id number] ####[facility] [place] [address] NRBC (PER 100 WBCS) BY AUTOMATED COUNT 0.0 % Normal 0 [facility] Comment on above: Performed By: #### L [id number] ####[facility] [place] [address] PLATELETS (10*3/UL) IN BLOOD AUTOMATED COUNT 208 10*3/uL Normal 150-400 [facility] Comment on above: Performed By: #### L [id number] ####[facility] (BEAKER)[address] [place] [address] RBC (Bld) [#/Vol] 5.04 10*6/uL Normal 4.20-5.70 [facility] Comment on above: Performed By: #### L [id number] ####[facility] ([facility])[address] [place] [address] WBC (Bld) [#/Vol] 8.93 10*3/uL Normal 4.00-10.60 [facility] Comment on above: Performed By: #### L [id number] ####[facility] ([facility])[address] [place] [address] CONSULTon 08-18-2024 CONSULT Normal [facility] MAGNESIUMon 08-18-2024 Magnesium [Mass/Vol] 2.1 mg/dL Normal 1.9-2.7 [facility] Comment on above: Performed By: #### L [id number] ####[facility] ([facility])[address] [place] [address] PHOSPHORUSon 08-18-2024 Magnesium [Mass/Vol] 2.9 mg/dL Normal 2.5-5.0 [facility] Comment on above: Performed By: #### L [id number] ####[facility] ([facility])[address] [place] [address] POCT GLUCOSE METER UNSOLICIT ED RESULTSon 08-18-2024 Glucose [Mass/Vol] 194 mg/dL High 70-105 [facility] Comment on above: Order Comment: Waive d Testing in the ED is performed under the ED CLIA certificate #[id number]. Result Comment: [email or web address] [email or web address] Performed By: #### L [id number] ####[facility] ([facility])[address] [place] [address] Glucose [Mass/Vol] 183 mg/dL High 70-105 [facility] Comment on above: Order Comment: Waive d Testing in the ED is performed under the ED CLIA certificate #[id number]. Result Comment: ezab [email or web address] Performed By: #### L [id number] ####[facility] ([facility])[address] [place] [address] Glucose [Mass/Vol] 173 mg/dL High 70-105 [facility] Comment on above: Order Comment: Waive d Testing in the ED is performed under the ED CLIA certificate #[id number]. Result Comment: [email or web address] [email or web address] Performed By: #### L [id number] ####[facility] ([facility])[address] [place] [address] Glucose [Mass/Vol] 200 mg/dL High 70-105 [facility] Comment on above: Order Comment: Waive d Testing in the ED is performed under the ED CLIA certificate #[id number]. Result Comment: [email or web address] Performed By: #### L [id number] ####[facility] ([facility])[address] [place] [address] SPUTUM CULTUREon 08-18-2024 Clindamycin [Susc] <=0.5 Susceptible [facility] Comment on above: Performed By: #### L [id number] ####[facility] [facility] ([facility])[address] [place] [address] DAPTOmycin [Susc] <=1 Susceptible [facility] Comment on above: Performed By: #### L [id number] ####[facility] ([facility])[address] [place] [address] Linezolid [Susc] <=1 Susceptible [facility] Comment on above: Performed By: #### L [id number] ####[facility] ([facility])[address] [place] [address] Oxacillin [Susc] >2 Resistant [facility] Comment on above: Performed By: #### L [id number] ####[facility] ([facility])[address] [place] [address] Tetracycline [Susc] <=0.5 Susceptible [facility] Comment on above: Performed By: #### L [id number] ####[facility] ([facility])[address] [place] [address] Trimethoprim+Sulfamethox azole [Susc] <=0.5/9.5 Susceptible [facility] Comment on above: Performed By: #### L [id number] ####[facility] ([facility])[address] [place] [address] Vancomycin [Susc] <=0.5 Susceptible [facility] Comment on above: Performed By: #### L [id number] ####[facility] ([facility])[address] [place] [address] TRIGLYCERIDESon 08-18-2024 FASTING? unknown Normal [facility] Comment on above: Performed By: #### L [id number] ####[facility] ([facility])[address] [place] [address] Magnesium [Mass/Vol] 154 mg/dL High 40-149 [facility] Comment on above: Result Comment: TRIG LYCERIDE REFERENCE RANGE:20 YEARS AND OLDER CARDIOVASCULAR RISKLESS THAN 150 mg/dL LOW [id number] TO 199 mg/dL BORDERLINE [id number] mg/dL AND GREATER HIGH RISK Performed By: #### L [id number] ####[facility] ([facility])[address] [place] [address] 30on 08-17-2024 30 Normal [facility] ANTI-XA (HEPARIN LEVEL)on HEPARIN UNFRACTIONATED (U/ML) IN PPP BY CHROMOGENIC METHOD 0.86 IU/mL High 0.3-0.7 [facility] Comment on above: Result Comment: Tatyana roxaban and Apixaban will interfere with the anti Xa assay used to monitor UFH and LMWH. Performed By: #### L [id number] ####[facility] ([facility])[address] [place] [address] HEPARIN UNFRACTIONATED (U/ML) IN PPP BY CHROMOGENIC METHOD >1.00 Critically high 0.3-0.7 [facility] Comment on above: Result Comment: Lamar roxaban and Apixaban will interfere with the anti Xa assay used to monitor UFH and LMWH. Performed By: #### L [id number] ####[facility] ([facility])[address] [place] [address] HEPARIN UNFRACTIONATED (U/ML) IN PPP BY CHROMOGENIC METHOD >1.00 Critically high 0.3-0.7 [facility] Comment on above: Performed By: #### L [id number] ####[facility] ([facility])[address] [place] [address] APTTon 08-17-2024 ACTIVATED PARTIAL THROMBOPLASTIN TIME IN PPP BY COAGULATION ASSAY 99.6 Seconds High 25.0-35.0 [facility] Comment on above: Result Comment: Clin ical significance of the APTT is questionable in the presence of heparin. Performed By: #### L [id number] ####[facility] ([facility])[address] [address] ACTIVATED PARTIAL THROMBOPLASTIN TIME IN PPP BY COAGULATION ASSAY 98.9 Seconds High 25.0-35.0 [facility] Comment on above: Result Comment: Clin ical significance of the APTT is questionable in the presence of heparin. Performed By: #### L [id number] ####[facility] ([facility])[address] [place] [address] B-TYPE NATRIURETIC PEPTIDEon 08-17-2024 Natriuretic peptide B (Bld) [Mass/Vol] 75 pg/mL Normal 0-100 [facility] Comment on above: Performed By: #### L [id number] ####[facility] ([facility])[address] [place] [address] BASIC METABOLIC PANELon 07-22 Anion gap [Moles/Vol] 9 mmol/L Normal 7-20 [facility] Comment on above: Performed By: #### L [id number] ####[facility] ([facility])[address] [place] [address] Calcium [Mass/Vol] 8.8 mg/dL Normal 8.6-10.3 [facility] Comment on above: Performed By: #### L [id number] ####[facility] ([facility])[address] [place] [address] Chloride [Moles/Vol] 97 mmol/L Low 98-107 [facility] Comment on above: Performed By: #### L [id number] ####[facility] [place] [address] CO2 [Moles/Vol] 45 mmol/L Critically high 21-31 [facility] Comment on above: Performed By: #### L [id number] ####[facility] ([facility])[address] [place] [address] Creatinine [Mass/Vol] 0.93 mg/dL Normal 0.70-1.30 [facility] Comment on above: Performed By: #### L [id number] ####[facility] ([facility])[address] [place] [address] GLOMERULAR FILTRATION RATE ML/MIN/1.73 SQ M.PREDICTED 91.1 mL/min/1.73m*2 Normal >60.0 [facility] Comment on above: Result Comment: [facility]???s estimated glomerular filtration rate (eGFR) will [...] of individuals. Performed By: #### L [id number] ####[facility] ([facility])[address] [place] [address] Glucose [Mass/Vol] 190 mg/dL High 70-100 [facility] Comment on above: Performed By: #### L [id number] ####[facility] [place] [address] Potassium [Moles/Vol] 3.5 mmol/L Normal 3.5-5.1 [facility] Comment on above: Performed By: #### L [id number] ####[facility] [place] [address] Sodium [Moles/Vol] 147 mmol/L High 136-145 [facility] Comment on above: Performed By: #### L [id number] ####[facility] [place] [address] Urea nitrogen [Mass/Vol] 28 mg/dL High 7-25 [facility] Comment on above: Performed By: #### L [id number] ####[facility] [place] [address] UREA NITROGEN/CREATININE (MASS RATIO) IN SER/PLAS 30.1 Normal [facility] Comment on above: Performed By: #### L [id number] ####[facility] ([facility])[address] [place] [address] CBC WITH AUTO DIFFERENTIALon 08-17-2024 Basophils (Bld) [#/Vol] 0.02 10*3/uL Normal 0.00-0.20 [facility] Comment on above: Performed By: #### L [id number] ####[facility] ([facility])[address] [place] [address] Basophils/100 WBC (Bld) 0.2 % Normal 0.0-1.0 [facility] Comment on above: Performed By: #### L [id number] ####[facility] ([facility])[address] [place] [address] Eosinophils (Bld) [#/Vol] 0.20 10*3/uL Normal 0.00-0.50 [facility] Comment on above: Performed By: #### L [id number] ####[facility] [place] [address] Eosinophils/100 WBC (Bld) 2.4 % Normal 0.0-6.0 [facility] Comment on above: Performed By: #### L [id number] ####[facility] ([facility])[address] [place] [address] Erythrocyte distribution width (RBC) [Ratio] 15.3 % High 11.5-15.0 [facility] Comment on above: Performed By: #### L [id number] ####[facility] ([facility])[address] [place] [address] ERYTHROCYTE MEAN CORPUSCULAR HEMOGLOBIN CONCENTRATION (G/DL) BY AUTOMATED 30.0 g/dL Low 32.0-35.0 [facility] Comment on above: Performed By: #### L [id number] ####[facility] ([facility])[address] [place] [address] Hematocrit (Bld) [Volume fraction] 49.7 % Normal 39.0-55.0 [facility] Comment on above: Performed By: #### L [id number] ####[facility] ([facility])[address] [place] [address] Hemoglobin (Bld) [Mass/Vol] 14.9 g/dL Normal 13.0-17.0 [facility] Comment on above: Performed By: #### L [id number] ####[facility] ([facility])[address] [place] [address] Immature granulocytes (Bld) [#/Vol] 0.04 10*3/uL Normal 0.00-0.20 [facility] Comment on above: Performed By: #### L [id number] ####[facility] ([facility])[address] [place] [address] Immature granulocytes/100 WBC (Bld) 0.5 % Normal 0.0-1.0 [facility] Comment on above: Performed By: #### L [id number] ####[facility] ([facility])[address] [place] [address] Lymphocytes (Bld) [#/Vol] 0.87 10*3/uL Low 1.20-4.00 [facility] Comment on above: Performed By: #### L [id number] ####[facility] ([facility])[address] [place] [address] Lymphocytes/100 WBC (Bld) 10.5 % Low 20.0-45.0 [facility] Comment on above: Performed By: #### L [id number] ####[facility] ([facility])[address] [place] [address] MCH (RBC) [Entitic mass] 29.0 pg Normal 27.0-33.0 [facility] Comment on above: Performed By: #### L [id number] ####[facility] [place] [address] MCV (RBC) [Entitic vol] 96.9 fL Normal 82.0-98.0 [facility] Comment on above: Performed By: #### L [id number] ####[facility] ([facility])[address] [place], [place] [address] Monocytes (Bld) [#/Vol] 1.21 10*3/uL High 0.10-1.00 [facility] Comment on above: Performed By: #### L [id number] ####[facility] ([facility])[address] [place] [address] Monocytes/100 WBC (Bld) 14.6 % High 5.0-12.0 [facility] Comment on above: Performed By: #### L [id number] ####[facility] ([facility])[address] [place], [place] [address] Neutrophils (Bld) [#/Vol] 5.97 10*3/uL Normal 1.60-7.60 [facility] Comment on above: Performed By: #### L [id number] ####[facility] ([facility])[address] [place], [place] [address] Neutrophils/100 WBC (Bld) 71.8 % Normal 40.0-72.0 [facility] Comment on above: Performed By: #### L [id number] ####[facility] [place], [place] [address] NRBC (PER 100 WBCS) BY AUTOMATED COUNT 0.0 % Normal 0 [facility] Comment on above: Performed By: #### L [id number] ####[facility] [place] [address] PLATELETS (10*3/UL) IN BLOOD AUTOMATED COUNT 210 10*3/uL Normal 150-400 [facility] Comment on above: Performed By: #### L [id number] ####[facility] ([facility])[address] [place] [address] RBC (Bld) [#/Vol] 5.13 10*6/uL Normal 4.20-5.70 [facility] Comment on above: Performed By: #### L [id number] ####[facility] ([facility])[address] [place] [address] WBC (Bld) [#/Vol] 8.31 10*3/uL Normal 4.00-10.60 [facility] Comment on above: Performed By: #### L [id number] ####[facility] ([facility])[address] [place] [address] MAGNESIUMon 08-17-2024 Magnesium [Mass/Vol] 2.2 mg/dL Normal 1.9-2.7 [facility] Comment on above: Performed By: #### L [id number] ####[facility] ([facility])[address] [place] [address] Magnesium [Mass/Vol] 1.8 mg/dL Low 1.9-2.7 [facility] Comment on above: Performed By: #### L [id number] ####[facility] ([facility])[address] [place] [address] Magnesium [Mass/Vol] 1.6 mg/dL Low 1.9-2.7 [facility] Comment on above: Performed By: #### L [id number] ####[facility] ([facility])[address] [place] [address] PHOSPHORUSon 08-17-2024 Magnesium [Mass/Vol] 3.2 mg/dL Normal 2.5-5.0 [facility] Comment on above: Performed By: #### L [id number] ####[facility] ([facility])[address] [place] [address] POCT GLUCOSE METER UNSOLICIT ED RESULTSon 08-17-2024 Glucose [Mass/Vol] 184 mg/dL High 70-105 [facility] Comment on above: Order Comment: Waive d Testing in the ED is performed under the ED CLIA certificate #[id number]. Result Comment: umesh sheikh Performed By: #### L [id number] ####[facility] ([facility])[address] [place] [address] Glucose [Mass/Vol] 191 mg/dL High 70-105 [facility] Comment on above: Order Comment: Waive d Testing in the ED is performed under the ED CLIA certificate #[id number]. Result Comment: umesh [email or web address] Performed By: #### L [id number] ####[facility] ([facility])[address] [place] [address] POTASSIUMon 08-17-2024 Potassium [Moles/Vol] 3.8 mmol/L Normal 3.5-5.1 [facility] Comment on above: Performed By: #### L [id number] ####[facility] ([facility])[address] [place] [address] Potassium [Moles/Vol] 3.7 mmol/L Normal 3.5-5.1 [facility] Comment on above: Performed By: #### L [id number] ####[facility] ([facility])[address] [place] [address] PROTIME-INRon 08-17-2024 INR IN PPP BY COAGULATION ASSAY 1.19 High 0.90-1.10 [facility] Comment on above: Result Comment: [facility] P RECOMMENDED INR FOR WARFARIN THERAPY CONDITION INRPROPHYLAXIS OF VENOUS THROMBOSIS 2-3(HIGH-RISK SURGERY)TREATMENT OF VENOUS THROMBOSIS 2-3TREATMENT OF PULMONARY EMBOLISM 2-3PREVENTION OF SYSTEMIC EMBOLISM: 2-3 ACUTE MYOCARDIAL INFARCTION TISSUE HEART VALVES VALVULAR HEART DISEASE ATRIAL FIBRILLATION RECURRENT SYSTEMIC EMBOLISMMECHANICAL HEART VALVE 2.5-3.5 FROM: ORAL ANTICOAGULANTS. MECHANISM OF ACTION, CLINICAL EFFECTIVENESS, AND OPTIMAL THERAPEUTIC RANGE. CHEST 1994;108:231S-246S. Performed By: #### L [id number] ####[facility] ([facility])[address] [place] [address] PROTHROMBIN TIME (PT) IN PPP BY COAGULATION ASSAY 15.0 Seconds High 12.3-14.8 [facility] Comment on above: Performed By: #### L [id number] ####[facility] ([facility])[address] [place] [address] INR IN PPP BY COAGULATION ASSAY 1.19 High 0.90-1.10 [facility] Comment on above: Result Comment: [facility] P RECOMMENDED INR FOR WARFARIN THERAPY CONDITION INRPROPHYLAXIS OF VENOUS THROMBOSIS 2-3(HIGH-RISK SURGERY)TREATMENT OF VENOUS THROMBOSIS 2-3TREATMENT OF PULMONARY EMBOLISM 2-3PREVENTION OF SYSTEMIC EMBOLISM: 2-3 ACUTE MYOCARDIAL INFARCTION TISSUE HEART VALVES VALVULAR HEART DISEASE ATRIAL FIBRILLATION RECURRENT SYSTEMIC EMBOLISMMECHANICAL HEART VALVE 2.5-3.5 FROM: ORAL ANTICOAGULANTS. MECHANISM OF ACTION, CLINICAL EFFECTIVENESS, AND OPTIMAL THERAPEUTIC RANGE. CHEST 1994;108:231S-246S. Performed By: #### L [id number] ####[facility] ([facility])[address] [place] [address] PROTHROMBIN TIME (PT) IN PPP BY COAGULATION ASSAY 15.1 Seconds High 12.3-14.8 [facility] Comment on above: Performed By: #### L [id number] ####[facility] ([facility])[address] [place] [address] TRIGLYCERIDESon 08-17-2024 FASTING? Unknown Normal [facility] Comment on above: Performed By: #### L [id number] ####[facility] ([facility])[address] [place] [address] Magnesium [Mass/Vol] 119 mg/dL Normal 40-149 [facility] Comment on above: Result Comment: TRIG LYCERIDE REFERENCE RANGE:20 YEARS AND OLDER CARDIOVASCULAR RISKLESS THAN 150 mg/dL LOW [id number] TO 199 mg/dL BORDERLINE [id number] mg/dL AND GREATER HIGH RISK Performed By: #### L [id number] ####[facility] ([facility])[address] [place] [address] TROPONIN Ion 08-17-2024 Troponin I.cardiac [Mass/Vol] 0.04 ng/mL Normal 0.00-0.04 [facility] Comment on above: Performed By: #### L [id number] ####[facility] ([facility])[address] [place] [address] Troponin I.cardiac [Mass/Vol] 0.04 ng/mL Normal 0.00-0.04 [facility] Comment on above: Performed By: #### L [id number] ####[facility] ([facility])[address] [place] [address] VANCOMYCIN, TROUGHon 025 VANCOMYCIN (UG/ML) IN SER/PLAS - TROUGH 23.6 ug/mL Critically high 5.0-20.0 [facility] Comment on above: Performed By: #### L [id number] ####[facility] ([facility])[address] [place] [address] BASIC METABOLIC PANELon 07-22 Anion gap [Moles/Vol] 11 mmol/L Normal 7-20 [facility] Comment on above: Performed By: #### L [id number] ####[facility] ([facility])[address] [place] [address] Calcium [Mass/Vol] 8.9 mg/dL Normal 8.6-10.3 [facility] Comment on above: Performed By: #### L [id number] ####[facility] ([facility])[address] [place] [address] Chloride [Moles/Vol] 99 mmol/L Normal 98-107 [facility] Comment on above: Performed By: #### L [id number] ####[facility] ([facility])[address] [place] [address] CO2 [Moles/Vol] 38 mmol/L High 21-31 [facility] Comment on above: Performed By: #### L [id number] ####[facility] ([facility])[address] [place] [address] Creatinine [Mass/Vol] 1.10 mg/dL Normal 0.70-1.30 [facility] Comment on above: Performed By: #### L [id number] ####[facility] ([facility])[address] [place] [address] GLOMERULAR FILTRATION RATE ML/MIN/1.73 SQ M.PREDICTED 74.5 mL/min/1.73m*2 Normal >60.0 [facility] Comment on above: Result Comment: [facility]???s estimated glomerular filtration rate (eGFR) will [...] of individuals. Performed By: #### L [id number] ####[facility] ([facility])[address] [place] [address] Glucose [Mass/Vol] 202 mg/dL High 70-100 [facility] Comment on above: Performed By: #### L [id number] ####[facility] [place] [address] Potassium [Moles/Vol] 3.3 mmol/L Low 3.5-5.1 [facility] Comment on above: Performed By: #### L [id number] ####[facility] [place] [address] Sodium [Moles/Vol] 145 mmol/L Normal 136-145 [facility] Comment on above: Performed By: #### L [id number] ####[facility] [place] [address] Urea nitrogen [Mass/Vol] 38 mg/dL High 7-25 [facility] Comment on above: Performed By: #### L [id number] ####[facility] [place] [address] UREA NITROGEN/CREATININE (MASS RATIO) IN SER/PLAS 34.5 Normal [facility] Comment on above: Performed By: #### L [id number] ####[facility] ([facility])[address] [place] [address] CALCIUM, IONIZEDon CALCIUM IONIZED (MMOL/L) IN BLOOD Normal [facility] Comment on above: Result Comment: C^In calculable Performed By: #### C ALCIUM, IONIZED ####[facility]AT[facility] [id number] [place] [address] [place] CBC WITH AUTO DIFFERENTIALon 08-16-2024 Erythrocyte distribution width (RBC) [Ratio] 15.1 % High 11.5-15.0 [facility] Comment on above: Performed By: #### L [id number] ####[facility] ([facility])[address] [place] [address] ERYTHROCYTE MEAN CORPUSCULAR HEMOGLOBIN CONCENTRATION (G/DL) BY AUTOMATED 30.9 g/dL Low 32.0-35.0 [facility] Comment on above: Performed By: #### L [id number] ####[facility] ([facility])[address] [place] [address] Hematocrit (Bld) [Volume fraction] 52.1 % Normal 39.0-55.0 [facility] Comment on above: Performed By: #### L [id number] ####[facility] ([facility])[address] [place] [address] Hemoglobin (Bld) [Mass/Vol] 16.1 g/dL Normal 13.0-17.0 [facility] Comment on above: Performed By: #### L [id number] ####[facility] ([facility])[address] [place] [address] MCH (RBC) [Entitic mass] 29.4 pg Normal 27.0-33.0 [facility] Comment on above: Performed By: #### L [id number] ####[facility] ([facility])[address] [place] [address] MCV (RBC) [Entitic vol] 95.1 fL Normal 82.0-98.0 [facility] Comment on above: Performed By: #### L [id number] ####[facility] ([facility])[address] [place] [address] NRBC (PER 100 WBCS) BY AUTOMATED COUNT 0.0 % Normal 0 [facility] Comment on above: Performed By: #### L [id number] ####[facility] ([facility])[address] [place] [address] PLATELETS (10*3/UL) IN BLOOD AUTOMATED COUNT 243 10*3/uL Normal 150-400 [facility] Comment on above: Performed By: #### L [id number] ####[facility] [place] [address] RBC (Bld) [#/Vol] 5.48 10*6/uL Normal 4.20-5.70 [facility] Comment on above: Performed By: #### L [id number] ####[facility] ([facility])[address] [place] [address] WBC (Bld) [#/Vol] 9.57 10*3/uL Normal 4.00-10.60 [facility] Comment on above: Performed By: #### L [id number] ####[facility] ([facility])[address] [place] [address] CONSULTon 08-16-2024 CONSULT Normal [facility] CONSULT Normal [facility] CTA CHEST W IV CONTRASTon CTA CHEST W IV CONTRAST Invalid Interpretation Code [facility] MAGNESIUMon 08-16-2024 Magnesium [Mass/Vol] 1.9 mg/dL Normal 1.9-2.7 [facility] Comment on above: Performed By: #### L [id number] ####[facility] ([facility])[address] [place] [address] Magnesium [Mass/Vol] 1.7 mg/dL Low 1.9-2.7 [facility] Comment on above: Performed By: #### L [id number] ####[facility] ([facility])[address] [place] [address] MANUAL DIFFERENTIALon 2024 BASOPHILS (10*3/UL) IN BLOOD BY CALCULATION 0.02 10*3/uL Normal 0.00-0.20 [facility] Comment on above: Performed By: #### L [id number] ####[facility] ([facility])[address] [place] [address] BASOPHILS/100 LEUKOCYTES IN BLOOD BY AUTOMATED COUNT 0.2 % Normal 0.0-1.0 [facility] Comment on above: Performed By: #### L [id number] ####[facility] ([facility])[address] [place] [address] EOSINOPHILS (10*3/UL) IN BLOOD BY CALCULATION 0.10 10*3/uL Normal 0.00-0.50 [facility] Comment on above: Performed By: #### L [id number] ####[facility] ([facility])[address] [place] [address] EOSINOPHILS/100 LEUKOCYTES IN BLOOD BY AUTOMATED COUNT 1.0 % Normal 0.0-6.0 [facility] Comment on above: Performed By: #### L [id number] ####[facility] ([facility])[address] [place] [address] IMMATURE GRANULOCYTES (10*3/UL) IN BLOOD BY CALCULATION 0.06 10*3/uL Normal 0.00-0.20 [facility] Comment on above: Performed By: #### L [id number] ####[facility] ([facility])[address] [place] [address] IMMATURE GRANULOCYTES/100 LEUKOCYTES IN BLOOD BY AUTOMATED COUNT 0.6 % Normal 0.0-1.0 [facility] Comment on above: Performed By: #### L [id number] ####[facility] ([facility])[address] [place] [address] LYMPHOCYTES (10*3/UL) IN BLOOD BY CALCULATION 0.73 10*3/uL Low 1.20-4.00 [facility] Comment on above: Performed By: #### L [id number] ####[facility] ([facility])[address] [place] [address] LYMPHOCYTES/100 LEUKOCYTES IN BLOOD BY AUTOMATED COUNT 7.6 % Low 20.0-45.0 [facility] Comment on above: Performed By: #### L [id number] ####[facility] ([facility])[address] [place] [address] MONOCYTES (10*3/UL) IN BLOOD BY CALCUATION 1.52 10*3/uL High 0.10-1.00 [facility] Comment on above: Performed By: #### L [id number] ####[facility] ([facility])[address] [place] [address] MONOCYTES/100 LEUKOCYTES IN BLOOD BY AUTOMATED COUNT 15.9 % High 5.0-12.0 [facility] Comment on above: Performed By: #### L [id number] ####[facility] ([facility])[address] [place] [address] NEUTROPHILS (10*3/UL) IN BLOOD BY CALCULATION 7.1 10*3/uL Normal 1.6-7.6 [facility] Comment on above: Performed By: #### L [id number] ####[facility] ([facility])[address] [place] [address] NEUTROPHILS/100 LEUKOCYTES IN BLOOD BY AUTOMATED COUNT 74.7 % High 40.0-72.0 [facility] Comment on above: Performed By: #### L [id number] ####[facility] ([facility])[address] [place] [address] PHOSPHORUSon 08-16-2024 Magnesium [Mass/Vol] 3.8 mg/dL Normal 2.5-5.0 [facility] Comment on above: Performed By: #### L [id number] ####[facility] ([facility])[address] [place] [address] Magnesium [Mass/Vol] 1.8 mg/dL Low 2.5-5.0 [facility] Comment on above: Performed By: #### L [id number] ####[facility] ([facility])[address] [place] [address] POCT GLUCOSE METER UNSOLICIT ED RESULTSon 08-16-2024 Glucose [Mass/Vol] 189 mg/dL High 70-105 [facility] Comment on above: Order Comment: Waive d Testing in the ED is performed under the ED CLIA certificate #[id number]. Result Comment: ljon es Performed By: #### L [id number] ####[facility] ([facility])[address] [place] [address] Glucose [Mass/Vol] 205 mg/dL High 70-105 [facility] Comment on above: Order Comment: Waive d Testing in the ED is performed under the ED CLIA certificate #[id number]. Result Comment: rgil l Performed By: #### L [id number] ####[facility] ([facility])[address] [place] [address] Glucose [Mass/Vol] 200 mg/dL High 70-105 [facility] Comment on above: Order Comment: Waive d Testing in the ED is performed under the ED CLIA certificate #[id number]. Result Comment: [email or web address] [email or web address] Performed By: #### L [id number] ####[facility] ([facility])[address] [place] [address] Glucose [Mass/Vol] 207 mg/dL High 70-105 [facility] Comment on above: Order Comment: Waive d Testing in the ED is performed under the ED CLIA certificate #[id number]. Result Comment: oyod er Performed By: #### L [id number] ####[facility] ([facility])[address] [place] [address] POTASSIUMon 08-16-2024 Potassium [Moles/Vol] 3.3 mmol/L Low 3.5-5.1 [facility] Comment on above: Performed By: #### L [id number] ####[facility] ([facility])[address] [place] [address] Potassium [Moles/Vol] 3.5 mmol/L Normal 3.5-5.1 [facility] Comment on above: Performed By: #### L [id number] ####[facility] ([facility])[address] [place] [address] POTASSIUM, WHOLE BLOODon Potassium [Moles/Vol] 3.5 mmol/L Normal 3.5-5.1 [facility] Comment on above: Performed By: #### P OTASSIUM, WHOLE BLOOD ####[facility] [id number] [place] [address] [place] SODIUM, WHOLE BLOODon 2024 SODIUM, WHOLE BLOOD Normal [facility] Comment on above: Result Comment: C^In calculable Performed By: #### S ODIUM, WHOLE BLOOD ####[facility] [id number] [place] [address] [facility] TRIGLYCERIDESon 08-16-2024 FASTING? Unknown Normal [facility] Comment on above: Performed By: #### L [id number] ####[facility] ([facility])[address] [place] [address] Magnesium [Mass/Vol] 243 mg/dL High 40-149 [facility] Comment on above: Result Comment: TRIG LYCERIDE REFERENCE RANGE:20 YEARS AND OLDER CARDIOVASCULAR RISKLESS THAN 150 mg/dL LOW [id number] TO 199 mg/dL BORDERLINE [id number] mg/dL AND GREATER HIGH RISK Performed By: #### L [id number] ####[facility] ([facility])[address] [place] [address] 30on 08-15-2024 30 Normal [facility] 30 Normal [facility] BLOOD CULTUREon 08-15-2024 Bacteria identified Cx Nom (Bld) No growth at 5 days Normal [facility] Comment on above: Order Comment: From a different site than #1. Performed By: #### L [id number] ####[facility] [place] [address] Basophils Auto (Bld) [#/Vol] on 08-15-2024 Basophils (Bld) [#/Vol] Automated basoph il count 0.0-0.1 [facility] Basophils/100 WBC Auto (Bld) on 08-15-2024 Basophils/100 WBC (Bld) Automated basophil % Low 0. 2-2.0 [facility] CALCIUM, IONIZEDon CALCIUM IONIZED (MMOL/L) IN BLOOD 1.23 mmol/L Normal 1.15-1.33 [facility] Comment on above: Performed By: #### C ALCIUM, IONIZED ####[facility] [id number] [place] [address] [place] CBC WITH AUTO DIFFERENTIALon 08-15-2024 Basophils (Bld) [#/Vol] 0.01 10*3/uL Normal 0.00-0.20 [facility] Comment on above: Performed By: #### L [id number] ####[facility] ([facility])[address] [place] [address] Basophils/100 WBC (Bld) 0.1 % Normal 0.0-1.0 [facility] Comment on above: Performed By: #### L [id number] ####[facility] ([facility])[address] [place] [address] Eosinophils (Bld) [#/Vol] 0.01 10*3/uL Normal 0.00-0.50 [facility] Comment on above: Performed By: #### L [id number] ####[facility] ([facility])[address] [place] [address] Eosinophils/100 WBC (Bld) 0.1 % Normal 0.0-6.0 [facility] Comment on above: Performed By: #### L [id number] ####[facility] ([facility])[address] [place] [address] Erythrocyte distribution width (RBC) [Ratio] 15.2 % High 11.5-15.0 [facility] Comment on above: Performed By: #### L [id number] ####[facility] ([facility])[address] [place] [address] ERYTHROCYTE MEAN CORPUSCULAR HEMOGLOBIN CONCENTRATION (G/DL) BY AUTOMATED 33.8 g/dL Normal 32.0-35.0 [facility] Comment on above: Performed By: #### L [id number] ####[facility] ([facility])[address] [place] [address] Hematocrit (Bld) [Volume fraction] 47.1 % Normal 39.0-55.0 [facility] Comment on above: Performed By: #### L [id number] ####[facility] ([facility])[address] [place] [address] Hemoglobin (Bld) [Mass/Vol] 15.9 g/dL Normal 13.0-17.0 [facility] Comment on above: Performed By: #### L [id number] ####[facility] ([facility])[address] [place] [address] Immature granulocytes (Bld) [#/Vol] 0.05 10*3/uL Normal 0.00-0.20 [facility] Comment on above: Performed By: #### L [id number] ####[facility] [place] [address] Immature granulocytes/100 WBC (Bld) 0.7 % Normal 0.0-1.0 [facility] Comment on above: Performed By: #### L [id number] ####[facility] [place] [address] Lymphocytes (Bld) [#/Vol] 0.54 10*3/uL Low 1.20-4.00 [facility] Comment on above: Performed By: #### L [id number] ####[facility] ([facility])[address] [place] [address] Lymphocytes/100 WBC (Bld) 7.2 % Low 20.0-45.0 [facility] Comment on above: Performed By: #### L [id number] ####[facility] ([facility])[address] [place] [address] MCH (RBC) [Entitic mass] 31.8 pg Normal 27.0-33.0 [facility] Comment on above: Performed By: #### L [id number] ####[facility] [place] [address] MCV (RBC) [Entitic vol] 94.2 fL Normal 82.0-98.0 [facility] Comment on above: Performed By: #### L [id number] ####[facility] [place] [address] Monocytes (Bld) [#/Vol] 1.23 10*3/uL High 0.10-1.00 [facility] Comment on above: Performed By: #### L [id number] ####[facility] ([facility])[address] [place] [address] Monocytes/100 WBC (Bld) 16.3 % High 5.0-12.0 [facility] Comment on above: Performed By: #### L [id number] ####[facility] ([facility])[address] [place] [address] Neutrophils (Bld) [#/Vol] 5.70 10*3/uL Normal 1.60-7.60 [facility] Comment on above: Performed By: #### L [id number] ####[facility] ([facility])[address] [place] [address] Neutrophils/100 WBC (Bld) 75.6 % High 40.0-72.0 [facility] Comment on above: Performed By: #### L [id number] ####[facility] ([facility])[address] [place] [address] NRBC (PER 100 WBCS) BY AUTOMATED COUNT 0.3 % High 0 [facility] Comment on above: Performed By: #### L [id number] ####[facility] ([facility])[address] [place] [address] PLATELETS (10*3/UL) IN BLOOD AUTOMATED COUNT 237 10*3/uL Normal 150-400 [facility] Comment on above: Performed By: #### L [id number] ####[facility] ([facility])[address] [place] [address] RBC (Bld) [#/Vol] 5.00 10*6/uL Normal 4.20-5.70 [facility] Comment on above: Performed By: #### L [id number] ####[facility] ([facility])[address] [place] [address] WBC (Bld) [#/Vol] 7.54 10*3/uL Normal 4.00-10.60 [facility] Comment on above: Performed By: #### L [id number] ####[facility] [place] [address] COMPREHENSIVE METABOLIC PANE Kris 08-15-2024 Albumin [Mass/Vol] 2.9 g/dL Low 3.5-5.7 [facility] Comment on above: Performed By: #### L [id number] ####[facility] ([facility])[address] [place] [address] ALP [Catalytic activity/Vol] 58 U/L Normal 34-104 [facility] Comment on above: Performed By: #### L [id number] ####[facility] ([facility])[address] [place] [address] ALT [Catalytic activity/Vol] 21 U/L Normal 7-52 [facility] Comment on above: Performed By: #### L [id number] ####[facility] ([facility])[address] [place] [address] Anion gap [Moles/Vol] 13 mmol/L Normal 7-20 [facility] Comment on above: Performed By: #### L [id number] ####[facility] ([facility])[address] [place] [address] AST [Catalytic activity/Vol] 29 U/L Normal 13-39 [facility] Comment on above: Performed By: #### L [id number] ####[facility] ([facility])[address] [place] [address] Bilirubin [Mass/Vol] 1.0 mg/dL Normal 0.3-1.0 [facility] Comment on above: Performed By: #### L [id number] ####[facility] ([facility])[address] [place] [address] Calcium [Mass/Vol] 8.2 mg/dL Low 8.6-10.3 [facility] Comment on above: Performed By: #### L [id number] ####[facility] ([facility])[address] [place] [address] Chloride [Moles/Vol] 90 mmol/L Low 98-107 [facility] Comment on above: Performed By: #### L [id number] ####[facility] ([facility])[address] [place] [address] CO2 [Moles/Vol] 32 mmol/L High 21-31 [facility] Comment on above: Performed By: #### L [id number] ####[facility] ([facility])[address] [place] [address] Creatinine [Mass/Vol] 1.17 mg/dL Normal 0.70-1.30 [facility] Comment on above: Performed By: #### L [id number] ####[facility] ([facility])[address] [place] [address] GLOMERULAR FILTRATION RATE ML/MIN/1.73 SQ M.PREDICTED 69.2 mL/min/1.73m*2 Normal >60.0 [facility] Comment on above: Result Comment: [facility]???s estimated glomerular filtration rate (eGFR) will [...] of individuals. Performed By: #### L [id number] ####[facility] ([facility])[address] [place] [address] Glucose [Mass/Vol] 219 mg/dL High 70-100 [facility] Comment on above: Performed By: #### L [id number] ####[facility] ([facility])[address] [place] [address] Potassium [Moles/Vol] 4.0 mmol/L Normal 3.5-5.1 [facility] Comment on above: Performed By: #### L [id number] ####[facility] ([facility])[address] [place] [address] Protein [Mass/Vol] 5.5 g/dL Low 6.0-8.3 [facility] Comment on above: Performed By: #### L [id number] ####[facility] ([facility])[address] [place] [address] Sodium [Moles/Vol] 131 mmol/L Low 136-145 [facility] Comment on above: Performed By: #### L [id number] ####[facility] ([facility])[address] [place] [address] Urea nitrogen [Mass/Vol] 42 mg/dL High 7-25 [facility] Comment on above: Performed By: #### L [id number] ####[facility] ([facility])[address] [place] [address] UREA NITROGEN/CREATININE (MASS RATIO) IN SER/PLAS 35.9 Normal [facility] Comment on above: Performed By: #### L [id number] ####[facility] ([facility])[address] [place] [address] Eosinophils/100 WBC Auto (Bl d)on 08-15-2024 Eosinophils/100 WBC (Bld) Automated eosinophil % Low 0.9-7.0 [facility] Erythrocyte distribution wid th Auto (RBC) [Ratio]on 08-15-2024 Erythrocyte distribution width (RBC) [Ratio] Erythrocyte distribution width [Ratio] by Automated count High 11.0-15.0 [facility] Estimated glomerular filtrat ion rate (GFR) non- Americanon 08-15-2024 GFR/1.73 sq M.predicted among non-blacks MDRD (S/P/Bld) [Vol rate/Area] Estimated glomerular filtration rate (GFR) non- Low >=60 mL/min/1.73 m 2 [facility] Globulin Calc (S) [Mass/Vol] on 08-15-2024 Globulin (S) [Mass/Vol] Serum globulin measurement by calculation (mass/volume) [facility] HEMOGLOBIN A1Con 08-15-2024 Glucose [Mass/Vol] 189 mg/dL Normal [facility] Comment on above: Performed By: #### L [id number] ####[facility] ([facility])[address] [place] [address] HbA1c (Bld) [Mass fraction] 8.2 % High 4.0-6.0 [facility] Comment on above: Performed By: #### L [id number] ####[facility] ([facility])[address] [place] [address] HPon 08-15-2024 HP Normal [facility] Hematocrit Auto (Bld) [Volum e fraction]on 08-15-2024 Hematocrit (Bld) [Volume fraction] Hematocrit [Volume Fraction] of Blood by Automated count 42.0-54.0 [facility] Hemoglobin [Mass/volume] in Bloodon 08-15-2024 Hemoglobin (Bld) [Mass/Vol] Hemoglobin [Mass/volume] in Blood 14.0-18.0 [facility] LIPASEon 08-15-2024 LIPASE (U/L) IN SER/PLAS 28 U/L Normal 11-82 [facility] Comment on above: Result Comment: M-CH EMISTRY SPECIMEN MODERATELY HEMOLYZED RESULTS MAY NOT BE ACCURATE Performed By: #### L [id number] ####[facility] ([facility])[address] [place] [address] Laboratory - Chemistry and C hemistry - challengeon 08-15-2024 HCO3 (Bld) [Moles/Vol] 34.7 mmol/L High 22.0-26.0 [facility] Albumin [Mass/Vol] 2.6 g/dL Low 3.4-5.0 [facility] ALP [Catalytic activity/Vol] 81 U/L 46-116 [facility] ALT [Catalytic activity/Vol] 37 U/L 16-63 [facility] AST [Catalytic activity/Vol] 28 U/L 15-37 [facility] Bilirubin [Mass/Vol] 1.2 mg/dL High 0.2-1.0 [facility] Calcium [Mass/Vol] 9.2 mg/dL 8.5-10.1 [facility] Chloride [Moles/Vol] 101 mmol/L 98-107 [facility] CO2 [Moles/Vol] 35.4 mmol/L High 21.0-32.0 [facility] Creatinine [Mass/Vol] 1.66 mg/dL High 0.70-1.30 [facility] GFR/1.73 sq M.predicted MDRD (S/P/Bld) [Vol rate/Area] 51 mL/min/{1.73_m2} Low >=60 mL/min/1.73 m 2 [facility] Glucose [Mass/Vol] 268 mg/dL High 74-106 [facility] Potassium [Moles/Vol] 3.8 mmol/L 3.5-5.1 [facility] Protein [Mass/Vol] 6.3 g/dL Low 6.4-8.2 [facility] Sodium [Moles/Vol] 143 mmol/L 136-145 [facility] Urea nitrogen [Mass/Vol] 52.0 mg/dL High 7.0-18.0 [facility] Urea nitrogen/Creatinine [Mass ratio] 31.3 mg/mg [facility] Laboratory - Hematology and Cell countson 08-15-2024 Immature granulocytes/100 WBC (Bld) 0.8 % High 0.0-0.5 [facility] Leukocytes [#/volume] correc beatris for nucleated erythrocytes in Blood by Automated counon 08-15-2024 WBC corrected for nucl RBC Auto (Bld) [#/Vol] Leukocytes [#/volume] corrected for nucleated erythrocytes in Blood by Automated coun 4.0-11.0 [facility] Lymphocytes Auto (Bld) [#/Vo l]on 08-15-2024 Lymphocytes (Bld) [#/Vol] Lymphocytes [#/volume] in Blood by Automated count Low 1.2-3.8 [facility] Lymphocytes/100 WBC Auto (Bl d)on 08-15-2024 Lymphocytes/100 WBC (Bld) Lymphocytes/100 leukocytes in Blood by Automated count Low 20.5-60.0 [facility] MAGNESIUMon 08-15-2024 Magnesium [Mass/Vol] 1.6 mg/dL Low 1.9-2.7 [facility] Comment on above: Performed By: #### L [id number] ####[facility] ([facility])[address] [place] [address] MCH Auto (RBC) [Entitic mass ]on 08-15-2024 MCH (RBC) [Entitic mass] MCH [Entitic ma ss] by Automated count 25.9-34.0 [facility] MCHC Auto (RBC) [Mass/Vol]on 08-15-2024 MCHC (RBC) [Mass/Vol] MCHC [Mass/volume] by Automated count 29.9-35.2 [facility] MCV Auto (RBC) [Entitic vol] on 08-15-2024 MCV (RBC) [Entitic vol] MCV [Entitic vol ume] by Automated count 80.0-94.0 [facility] MRSA/MSSA DNA NASALon 2024 MRSA DNA Negative Normal Negative [facility] Comment on above: Order Comment: Testi [...] preclude nasal colonization. Performed By: #### L [id number] ####[facility] ([facility])[address] [place] [address] MSSA DNA Negative Normal Negative [facility] Comment on above: Order Comment: Testi [...] preclude nasal colonization. Performed By: #### L [id number] ####[facility] ([facility])[address] [place] [address] Monocytes Auto (Bld) [#/Vol] on 08-15-2024 Monocytes (Bld) [#/Vol] Automated blood monocyte count 0.3-0.8 [facility] Monocytes/100 WBC Auto (Bld) on 08-15-2024 Monocytes/100 WBC (Bld) Automated monocyte % 1. 7-12.0 [facility] Neutrophils Auto (Bld) [#/Vo l]on 08-15-2024 Neutrophils (Bld) [#/Vol] Neutrophils [#/volume] in Blood by Automated count 1.4-6.5 [facility] Neutrophils/100 WBC Auto (Bl d)on 08-15-2024 Neutrophils/100 WBC (Bld) Automated neutrophil % High 43.0-75.0 [facility] No Panel Informationon 08-15 Avinash Test Positive POSITIVE [facility] Arterial Blood Base Excess 11.0 mmol/L High <2.0-2.0 [facility] Arterial Blood Oxygen Saturation 97.0 % [facility] Arterial Blood Partial Pressure CO2 47.8 mm[Hg] High 35.0-45.0 [facility] Arterial Blood Partial Pressure O2 81.0 mm[Hg] 80.0-100.0 [facility] Arterial Blood pH 7.469 High 7.350-7.450 [facility] Blood Gas PEEP 8 [facility] Blood Gas Sample Site RIGHT RADIAL F [facility] Blood Gas Set Respiration Rate 22 [facility] Blood Gas Tidal Volume 600 [facility] Blood Gas Ventilator Mode AC/VC [facility] FiO2 90 % [facility] Oxygen Delivery Device VENT Fi [facility] Reference Lab Test #2 Result 13.8 [facility] Eosinophils # (Auto) 0.0 10 3/uL 0.0-0.7 [facility] Immature Granulocyte # (Auto) 0.06 10 3/uL High 0.00-0.03 [facility] PHOSPHORUSon 08-15-2024 Magnesium [Mass/Vol] 2.7 mg/dL Normal 2.5-5.0 [facility] Comment on above: Performed By: #### L [id number] ####[facility] ([facility])[address] [place] [address] POCT GLUCOSE METER UNSOLICIT ED RESULTSon 08-15-2024 Glucose [Mass/Vol] 249 mg/dL High 70-105 [facility] Comment on above: Order Comment: Waive d Testing in the ED is performed under the ED CLIA certificate #[id number]. Result Comment: oyod er Performed By: #### L [id number] ####[facility] ([facility])[address] [place] [address] Glucose [Mass/Vol] 217 mg/dL High 70-105 [facility] Comment on above: Order Comment: Waive d Testing in the ED is performed under the ED CLIA certificate #[id number]. Result Comment: bmen [email or web address] Performed By: #### L [id number] ####[facility] ([facility])[address] [place] [address] Glucose [Mass/Vol] 233 mg/dL High 70-105 [facility] Comment on above: Order Comment: Waive d Testing in the ED is performed under the ED CLIA certificate #[id number]. Result Comment: bmen [email or web address] Performed By: #### L [id number] ####[facility] ([facility])[address] [place] [address] POTASSIUM, WHOLE BLOODon Potassium [Moles/Vol] 3.4 mmol/L Low 3.5-5.1 [facility] Comment on above: Performed By: #### P OTASSIUM, WHOLE BLOOD ####[facility] [id number] [place] [address] [facility] Platelet mean volume Auto (B ld) [Entitic vol]on 08-15-2024 Platelet mean volume (Bld) [Entitic vol] Platelet mean volume [Entitic volume] in Blood by Automated count 9.5-13.5 [facility] Platelets Auto (Bld) [#/Vol] on 08-15-2024 Platelets (Bld) [#/Vol] Platelets [#/vol ume] in Blood by Automated count 150-450 [facility] RBC Auto (Bld) [#/Vol]on RBC (Bld) [#/Vol] Erythrocytes [#/volume] in Blood by Automated count 4.70-6.10 [facility] SODIUM, WHOLE BLOODon 2024 SODIUM, WHOLE BLOOD 136 Normal 136-145 [facility] Comment on above: Performed By: #### S ODIUM, WHOLE BLOOD ####[facility] RESPIRAT[facility] [id number] [place] [address] [place] Serum or plasma albumin/glob ulin mass ratioon 08-15-2024 Albumin/Globulin [Mass ratio] Serum or plasma albumin/globulin mass ratio [facility] Serum or plasma anion gap de terminationon 08-15-2024 Anion gap [Moles/Vol] Serum or plasma an ion gap determination [facility] TRIGLYCERIDESon 08-15-2024 FASTING? unknown Normal [facility] Comment on above: Order Comment: Monit or triglycerides while patient is on propofol. Consult Nutrition if greater than 500 mg/dL. Performed By: #### L [id number] ####[facility] ([facility])[address] [place] [address] Magnesium [Mass/Vol] 3920 mg/dL High 40-149 [facility] Comment on above: Order Comment: Monit or triglycerides while patient is on propofol. Consult Nutrition if greater than 500 mg/dL. Result Comment: TRIG LYCERIDE REFERENCE RANGE:20 YEARS AND OLDER CARDIOVASCULAR RISKLESS THAN 150 mg/dL LOW [id number] TO 199 mg/dL BORDERLINE [id number] mg/dL AND GREATER HIGH RISK Performed By: #### L [id number] ####[facility] ([facility])[address] [place] [address] TROPONIN Ion 08-15-2024 Troponin I.cardiac [Mass/Vol] 0.04 ng/mL Normal 0.00-0.04 [facility] Comment on above: Performed By: #### L [id number] ####[facility] ([facility])[address] [place] [address] URINALYSIS WITH MICROSCOPICo n 08-15-2024 BILIRUBIN, TOTAL PRESENCE IN URINE Negative Normal Negative [facility] Comment on above: Performed By: #### L [id number] ####[facility] ([facility])[address] [place] [address] Clarity (U) Clear Normal Clear [facility] Comment on above: Performed By: #### L [id number] ####[facility] ([facility])[address] [place] [address] Color (U) Colorless Normal Colorless, Yellow, Light-Yello w [facility] Comment on above: Performed By: #### L [id number] ####[facility] [place] [address] GLUCOSE (MG/DL) IN URINE Normal Normal Normal [facility] Comment on above: Performed By: #### L [id number] ####[facility] ([facility])[address] [place] [address] HEMOGLOBIN PRESENCE IN URINE Small Abnormal Negative [facility] Comment on above: Performed By: #### L [id number] ####[facility] ([facility])[address] [place] [address] Ketones Ql (U) Negative Normal Negative [facility] Comment on above: Performed By: #### L [id number] ####[facility] ([facility])[address] [place] [address] LEUKOCYTE ESTERASE PRESENCE IN URINE BY TEST STRIP Negative Normal Negative [facility] Comment on above: Performed By: #### L [id number] ####[facility] ([facility])[address] [place] [address] MUCUS (#/LPF) IN URINE SEDIMENT Occasional Normal None Seen, Occasional, Few [facility] Comment on above: Performed By: #### L [id number] ####[facility] ([facility])[address] [place] [address] NITRITE PRESENCE IN URINE Negative Normal Negative [facility] Comment on above: Performed By: #### L [id number] ####[facility] ([facility])[address] [place] [address] pH (U) 5.5 [pH] Normal 5.0-8.0 [facility] Comment on above: Performed By: #### L [id number] ####[facility] [place] [address] Protein (U) [Mass/Vol] Negative Normal Negative [facility] Comment on above: Performed By: #### L [id number] ####[facility] ([facility])[address] [place] [address] RBC (#/HPF) IN URINE SEDIMENT 11-20 Abnormal None Seen, 0-2 [facility] Comment on above: Performed By: #### L [id number] ####[facility] [place] [address] Specific gravity (U) [Rel density] 1.011 Normal 1.010-1.030 [facility] Comment on above: Performed By: #### L [id number] ####[facility] ([facility])[address] [place] [address] SQUAMOUS EPITHELIAL CELLS (#/LPF) IN URINE SEDIMENT None Seen Normal None Seen, Occasional, Few [facility] Comment on above: Performed By: #### L [id number] ####[facility] [place] [address] UROBILINOGEN (MG/DL) IN URINE Normal Normal Normal [facility] Comment on above: Performed By: #### L [id number] ####[facility] [place] [address] WBC (LEUKOCYTE) (#/HPF) IN URINE SEDIMENT 3-5 Abnormal None Seen, 0-2 [facility] Comment on above: Performed By: #### L [id number] ####[facility] [place] [address] Basophils Auto (Bld) [#/Vol] on 08-14-2024 Basophils (Bld) [#/Vol] Automated basoph il count 0.0-0.1 [facility] Basophils/100 WBC Auto (Bld) on 08-14-2024 Basophils/100 WBC (Bld) Automated basophil % 0. 2-2.0 [facility] Eosinophils/100 WBC Auto (Bl d)on 08-14-2024 Eosinophils/100 WBC (Bld) Automated eosinophil % Low 0.9-7.0 [facility] Erythrocyte distribution wid th Auto (RBC) [Ratio]on 08-14-2024 Erythrocyte distribution width (RBC) [Ratio] Erythrocyte distribution width [Ratio] by Automated count High 11.0-15.0 [facility] Estimated glomerular filtrat ion rate (GFR) non- Americanon 08-14-2024 GFR/1.73 sq M.predicted among non-blacks MDRD (S/P/Bld) [Vol rate/Area] Estimated glomerular filtration rate (GFR) non- Low >=60 mL/min/1.73 m 2 [facility] Globulin Calc (S) [Mass/Vol] on 08-14-2024 Globulin (S) [Mass/Vol] Serum globulin measurement by calculation (mass/volume) [facility] Hematocrit Auto (Bld) [Volum e fraction]on 08-14-2024 Hematocrit (Bld) [Volume fraction] Hematocrit [Volume Fraction] of Blood by Automated count 42.0-54.0 [facility] Hemoglobin [Mass/volume] in Bloodon 08-14-2024 Hemoglobin (Bld) [Mass/Vol] Hemoglobin [Mass/volume] in Blood 14.0-18.0 [facility] Laboratory - Chemistry and C hemistry - challengeon 08-14-2024 HCO3 (Bld) [Moles/Vol] 30.8 mmol/L High 22.0-26.0 [facility] Albumin [Mass/Vol] 2.4 g/dL Low 3.4-5.0 [facility] ALP [Catalytic activity/Vol] 82 U/L 46-116 [facility] ALT [Catalytic activity/Vol] 39 U/L 16-63 [facility] AST [Catalytic activity/Vol] 24 U/L 15-37 [facility] Bilirubin [Mass/Vol] 1.1 mg/dL High 0.2-1.0 [facility] Calcium [Mass/Vol] 8.6 mg/dL 8.5-10.1 [facility] Chloride [Moles/Vol] 102 mmol/L 98-107 [facility] CO2 [Moles/Vol] 32.4 mmol/L High 21.0-32.0 [facility] Creatinine [Mass/Vol] 1.64 mg/dL High 0.70-1.30 [facility] GFR/1.73 sq M.predicted MDRD (S/P/Bld) [Vol rate/Area] 51 mL/min/{1.73_m2} Low >=60 mL/min/1.73 m 2 [facility] Glucose [Mass/Vol] 194 mg/dL High 74-106 [facility] Potassium [Moles/Vol] 3.9 mmol/L 3.5-5.1 [facility] Protein [Mass/Vol] 5.8 g/dL Low 6.4-8.2 [facility] Sodium [Moles/Vol] 140 mmol/L 136-145 [facility] Urea nitrogen [Mass/Vol] 54.0 mg/dL High 7.0-18.0 [facility] Urea nitrogen/Creatinine [Mass ratio] 32.9 mg/mg [facility] Laboratory - Hematology and Cell countson 08-14-2024 Immature granulocytes/100 WBC (Bld) 0.8 % High 0.0-0.5 [facility] Leukocytes [#/volume] correc beatris for nucleated erythrocytes in Blood by Automated counon 08-14-2024 WBC corrected for nucl RBC Auto (Bld) [#/Vol] Leukocytes [#/volume] corrected for nucleated erythrocytes in Blood by Automated coun 4.0-11.0 [facility] Lymphocytes Auto (Bld) [#/Vo l]on 08-14-2024 Lymphocytes (Bld) [#/Vol] Lymphocytes [#/volume] in Blood by Automated count Low 1.2-3.8 [facility] Lymphocytes/100 WBC Auto (Bl d)on 08-14-2024 Lymphocytes/100 WBC (Bld) Lymphocytes/100 leukocytes in Blood by Automated count Low 20.5-60.0 [facility] MCH Auto (RBC) [Entitic mass ]on 08-14-2024 MCH (RBC) [Entitic mass] MCH [Entitic ma ss] by Automated count 25.9-34.0 [facility] MCHC Auto (RBC) [Mass/Vol]on 08-14-2024 MCHC (RBC) [Mass/Vol] MCHC [Mass/volume] by Automated count 29.9-35.2 [facility] MCV Auto (RBC) [Entitic vol] on 08-14-2024 MCV (RBC) [Entitic vol] MCV [Entitic vol ume] by Automated count High 80.0-94.0 [facility] Monocytes Auto (Bld) [#/Vol] on 08-14-2024 Monocytes (Bld) [#/Vol] Automated blood monocyte count 0.3-0.8 [facility] Monocytes/100 WBC Auto (Bld) on 08-14-2024 Monocytes/100 WBC (Bld) Automated monocyte % 1. 7-12.0 [facility] Neutrophils Auto (Bld) [#/Vo l]on 08-14-2024 Neutrophils (Bld) [#/Vol] Neutrophils [#/volume] in Blood by Automated count 1.4-6.5 [facility] Neutrophils/100 WBC Auto (Bl d)on 08-14-2024 Neutrophils/100 WBC (Bld) Automated neutrophil % High 43.0-75.0 [facility] No Panel Informationon 08-14 Avinash Test Positive POSITIVE [facility] Arterial Blood Base Excess 6.2 mmol/L High <2.0-2.0 [facility] Arterial Blood Oxygen Saturation 93.3 % [facility] Arterial Blood Partial Pressure CO2 48.3 mm[Hg] High 35.0-45.0 [facility] Arterial Blood Partial Pressure O2 62.0 mm[Hg] Low 80.0-100.0 [facility] Arterial Blood pH 7.413 7.350-7.450 [facility] Blood Gas PEEP +8 [facility] Blood Gas Sample Site RIGHT RADIAL F [facility] Blood Gas Set Respiration Rate 22 [facility] Blood Gas Tidal Volume 600 Fi [facility] Blood Gas Ventilator Mode AC [facility] FiO2 100 % [facility] Oxygen Delivery Device VENT Fi [facility] Eosinophils # (Auto) 0.0 10 3/uL 0.0-0.7 [facility] Immature Granulocyte # (Auto) 0.05 10 3/uL High 0.00-0.03 [facility] Platelet mean volume Auto (B ld) [Entitic vol]on 08-14-2024 Platelet mean volume (Bld) [Entitic vol] Platelet mean volume [Entitic volume] in Blood by Automated count 9.5-13.5 [facility] Platelets Auto (Bld) [#/Vol] on 08-14-2024 Platelets (Bld) [#/Vol] Platelets [#/vol ume] in Blood by Automated count 150-450 [facility] RBC Auto (Bld) [#/Vol]on RBC (Bld) [#/Vol] Erythrocytes [#/volume] in Blood by Automated count 4.70-6.10 [facility] Serum or plasma albumin/glob ulin mass ratioon 08-14-2024 Albumin/Globulin [Mass ratio] Serum or plasma albumin/globulin mass ratio [facility] Serum or plasma anion gap de terminationon 08-14-2024 Anion gap [Moles/Vol] Serum or plasma an ion gap determination [facility] URINE CULTURE, ROUTINEon Bacteria identified Cx Nom (U) Urine Culture, Routine [facility] Healthcare Bacteria identified Cx Nom (U) No growth [facility] Bacteria identified Cx Nom (U) [facility] identified Cx Nom (U) [address] [place], [place] [id number] [facility] Bacteria identified Cx Nom (U) Offset Press Operator Helper: Tyron Saeed PhD, Phone: [phone] [facility] Basophils Auto (Bld) [#/Vol] on 04-08-2024 Basophils (Bld) [#/Vol] 0.1 10 3/uL 0.0-0.1 [facility] Basophils/100 WBC Auto (Bld) on 04-08-2024 Basophils/100 WBC (Bld) 0.4 % 0.2-2.0 F [facility] Eosinophils/100 WBC Auto (Bl d)on 04-08-2024 Eosinophils/100 WBC (Bld) 1.7 % 0.9-7.0 [facility] Erythrocyte distribution wid th Auto (RBC) [Ratio]on 04-08-2024 Erythrocyte distribution width (RBC) [Ratio] 13.9 % 11.0-15.0 [facility] Estimated glomerular filtrat ion rate (GFR) non- Americanon 04-08-2024 GFR/1.73 sq M.predicted among non-blacks MDRD (S/P/Bld) [Vol rate/Area] mL/min/{1.73_m2} >=60 [facility] Hematocrit Auto (Bld) [Volum e fraction]on 04-08-2024 Hematocrit (Bld) [Volume fraction] 45.1 % 42.0-54.0 [facility] Hemoglobin [Mass/volume] in Bloodon 04-08-2024 Hemoglobin (Bld) [Mass/Vol] 14.7 g/dL 14.0-18.0 [facility] Laboratory - Chemistry and C hemistry - challengeon 04-08-2024 Calcium [Mass/Vol] 10.6 mg/dL High 8.5-10.1 [facility] Chloride [Moles/Vol] 98 mmol/L 98-107 [facility] CO2 [Moles/Vol] 34.6 mmol/L High 21.0-32.0 [facility] Creatinine [Mass/Vol] 1.03 mg/dL 0.70-1.30 [facility] GFR/1.73 sq M.predicted MDRD (S/P/Bld) [Vol rate/Area] mL/min/{1.73_m2} >=60 [facility] Glucose [Mass/Vol] 178 mg/dL High 74-106 [facility] Potassium [Moles/Vol] 4.4 mmol/L 3.5-5.1 [facility] Sodium [Moles/Vol] 135 mmol/L Low 136-145 [facility] Urea nitrogen [Mass/Vol] 16.0 mg/dL 7.0-18.0 [facility] Urea nitrogen/Creatinine [Mass ratio] 15.5 mg/mg [facility] Laboratory - Hematology and Cell countson 04-08-2024 Immature granulocytes/100 WBC (Bld) 1.1 % High 0.0-0.5 [facility] Leukocytes [#/volume] correc beatris for nucleated erythrocytes in Blood by Automated counon 04-08-2024 WBC corrected for nucl RBC Auto (Bld) [#/Vol] 13.3 10 3/uL High 4.0-11.0 [facility] Lymphocytes Auto (Bld) [#/Vo l]on 04-08-2024 Lymphocytes (Bld) [#/Vol] 1.7 10 3/uL 1.2-3.8 [facility] Lymphocytes/100 WBC Auto (Bl d)on 04-08-2024 Lymphocytes/100 WBC (Bld) 12.5 % Low 20.5-60.0 [facility] MCH Auto (RBC) [Entitic mass ]on 04-08-2024 MCH (RBC) [Entitic mass] 31.1 pg 25.9-34.0 [facility] MCHC Auto (RBC) [Mass/Vol]on 04-08-2024 MCHC (RBC) [Mass/Vol] 32.6 g/dL 29.9-35.2 [facility] MCV Auto (RBC) [Entitic vol] on 04-08-2024 MCV (RBC) [Entitic vol] 95.6 fL High 80.0-94.0 [facility] Monocytes Auto (Bld) [#/Vol] on 04-08-2024 Monocytes (Bld) [#/Vol] 1.0 10 3/uL High 0.3-0.8 [facility] Monocytes/100 WBC Auto (Bld) on 04-08-2024 Monocytes/100 WBC (Bld) 7.3 % 1.7-12.0 [facility] Neutrophils Auto (Bld) [#/Vo l]on 04-08-2024 Neutrophils (Bld) [#/Vol] 10.3 10 3/uL High 1.4-6.5 [facility] Neutrophils/100 WBC Auto (Bl d)on 04-08-2024 Neutrophils/100 WBC (Bld) 77.0 % High 43.0-75.0 [facility] No Panel InformationOrdered By: Rc Curtis on 04-08-2024 Acid Fast Smear [facility] AFB Specimen Processing [facility] Anaerobic Cult, Extended Incub [facility] Tissue Culture [facility] No Panel Informationon 04-08 Fungal Smear Result \R\ Fungus Stain [facility] Gram Stain Result 1 \R\ Gram Stain Result [facility] Miscellaneous Test Comment See comment [facility] Comment on above: Specimen Source: ELENA TRT - Foot Right - Foot Rt - 604.000 Eosinophils # (Auto) 0.2 10 3/uL 0.0-0.7 [facility] Immature Granulocyte # (Auto) 0.15 10 3/uL High 0.00-0.03 [facility] Platelet mean volume Auto (B ld) [Entitic vol]on 04-08-2024 Platelet mean volume (Bld) [Entitic vol] 9.8 fL 9.5-13.5 [facility] Platelets Auto (Bld) [#/Vol] on 04-08-2024 Platelets (Bld) [#/Vol] 482 10 3/uL High 150-450 [facility] RBC Auto (Bld) [#/Vol]on RBC (Bld) [#/Vol] 4.72 10 6/uL 4.70-6.10 [facility] Serum or plasma anion gap de terminationon 04-08-2024 Anion gap [Moles/Vol] 6.8 mmol/L [facility] ALL CBC WITH AUTO DIFFon BASOPHILS ABSOLUTE AUTO 0.1 [facility] Basophils/100 WBC (Bld) 0.6 % 0.2 - 2.0 % [facility] Eosinophils/100 WBC (Bld) 2.1 % 0.9 - 7.0 % [facility] Erythrocyte distribution width (RBC) [Ratio] 14.0 % 11.0 - 15.0 % [facility] Hematocrit (Bld) [Volume fraction] 41.9 % Low 42.0 - 54.0 % [facility] Hemoglobin (Bld) [Mass/Vol] 13.7 g/dL Low 14.0 - 18.0 g/dL [facility] IMMATURE GRANULOCYTES ABS AUTO 0.46 High [facility] Immature granulocytes/100 WBC (Bld) 2.9 % High 0.0 - 0.5 % [facility] Interpretation and review of laboratory results Abnormal [facility] LY[facility]OCYTES [facility]OLUTE [facility] Lymph[facility] WBC (Bld) 14.7 % Low 20.5 - 60.0 % [facility] MCH (RBC) [Entitic mass] 31.5 pg 25. 9 - 34.0 pg [facility] MCHC (RBC) [Mass/Vol] 32.7 g/dL 29.9 - 35.2 g/dL [facility] MCV (RBC) [Entitic vol] 96.3 fL High 80.0 - 94.0 fL [facility] MONOCYTES ABSOLUTE AUTO 1.2 High [facility] Monocytes/100 WBC (Bld) 7.8 % 1.7 - 12.0 % [facility] NEUTROPHILS ABSOLUTE AUTO 11.4 High [facility] Neutrophils/100 WBC (Bld) 71.9 % 43.0 - 75.0 % [facility] Platelet mean volume (Bld) [Entitic vol] 10.2 fL 9.5 - 13.5 fL [facility] TBH EO # 0.3 [facility] TB PLT 475 High [facility] TB RBC 4.35 Low [facility] TBH WBC 15.8 High [facility] XR FOOT LT MIN 3 VIEWSon [...] by: Sukhdev PARKS Date: 2022-07-14 23:08 Normal [facility] GLYCOHEMOGLOBIN A1Con 2021 ADA RECOMMENDATION SEE BELOW Normal [facility] Comment on above: Result Comment: ADA RECOMMENDED LIMIT 4.0 - 6.0 ADA THERAPEUTIC TARGET < 7.0 ACTION SUGGESTED > 7.0 Performed By: #### A 1C #### [facility] [address] [address] [address] Jennifer Zamora Glucose [Mass/Vol] 212 mg/dL Normal [facility] Comment on above: Performed By: #### A 1C #### [facility] [address] [address] [address] Jennifer Zamora HbA1c (Bld) [Mass fraction] 9.0 % Critically high 4.5-6.2 [facility] Comment on above: Performed By: #### A 1C #### [facility] [address] [place] [address] Dr. Jennifer Zamora PROF 14(COMP METB)on 05-13- 022 Albumin [Mass/Vol] 3.4 g/dL Normal 3.4-5.0 [facility] Comment on above: Performed By: #### C MP #### [facility] [address] [place] [address] Dr. Jennifer Zamora Albumin/Globulin [Mass ratio] 0.9 {ratio} Normal [facility] Comment on above: Performed By: #### C MP #### [facility] [address] [place] [address] Dr. Jennifer Zamora ALP [Catalytic activity/Vol] 108 U/L Normal 46-116 [facility] Comment on above: Performed By: #### C MP #### [facility] [address] [place] [address] Dr. Jennifer Zamora ALT [Catalytic activity/Vol] 35 U/L Normal 16-63 [facility] Comment on above: Performed By: #### C MP #### [facility] [address] [place] [address] Dr. Jennifer Zamora Anion gap [Moles/Vol] 7.0 mmol/L Normal [facility] Comment on above: Performed By: #### C MP #### [facility] [address] [place] [address] Dr. Jennifer Zamora AST [Catalytic activity/Vol] 11 U/L Critically low 15-37 [facility] Comment on above: Performed By: #### C MP #### [facility] [address] [place] [address] Dr. Jennifer Zamora Bilirubin [Mass/Vol] 0.7 mg/dL Normal 0.2-1.0 [facility] Comment on above: Performed By: #### C MP #### [facility] [address] [place] [address] Dr. Jennifer Zamora Calcium [Mass/Vol] 8.9 mg/dL Normal 8.5-10.1 [facility] Comment on above: Performed By: #### C MP #### [facility] [address] [place] [address] Dr. Jennifer Zamora Chloride [Moles/Vol] 100 mmol/L Normal 98-107 [facility] Comment on above: Performed By: #### C MP #### [facility] [address] [place] [address] Dr. Jennifer Zamora CO2 [Moles/Vol] 32.5 mmol/L Critically high 21.0-32.0 [facility] Comment on above: Performed By: #### C MP #### [facility] [address] [place] [address] Dr. Jennifer Zamora Creatinine [Mass/Vol] 1.05 mg/dL Normal 0.70-1.30 [facility] Comment on above: Performed By: #### C MP #### [facility] [address] [place] [address] Dr. Jennifer Zamora EGFR-AF CHADIAN >60 Normal >=60 [facility] Comment on above: Performed By: #### C MP #### [facility] [address] [place] [address] Dr. Jennifer Zamora EGFR-NON AF CHADIAN >60 Normal >=60 [facility] Comment on above: Performed By: #### C MP #### [facility] [address] [place] [address] Dr. Jennifer Zamora Globulin (S) [Mass/Vol] 3.7 g/dL Normal [facility] Comment on above: Performed By: #### C MP #### [facility] [address] [place] [address] Dr. Jennifer Zamora Glucose [Mass/Vol] 175 mg/dL Critically high 74-106 [facility] Comment on above: Performed By: #### C MP #### [facility] [address] [place] [address] Dr. Jennifer Zamora Potassium [Moles/Vol] 4.5 mmol/L Normal 3.5-5.1 [facility] Comment on above: Performed By: #### C MP #### [facility] [address] [address] [address] Jennifer Zamora Protein [Mass/Vol] 7.1 g/dL Normal 6.4-8.2 [facility] Comment on above: Performed By: #### C MP #### [facility] [address] [address] [address] Jennifer Zamora Sodium [Moles/Vol] 135 mmol/L Critically low 136-145 [facility] Comment on above: Performed By: #### C MP #### [facility] [address] [address] [address] Jennifer Zamora Urea nitrogen [Mass/Vol] 18.0 mg/dL Normal 7.0-18.0 [facility] Comment on above: Performed By: #### C MP #### [facility] [address] [address] [address] Jennifer Zamora Urea nitrogen/Creatinine [Mass ratio] 17.1 mg/mg Normal [facility] Comment on above: Performed By: #### C MP #### [facility] [address] [id number] Dr[address] Jennifer Zamora Vital Signs Date Time Vital Sign Value Performing Clinician Keyona bobo 04-28-2025 14:00-0400 Body height 180.34 cm Dara Eisenberg APRN Work Phone: [facility] 04-28-2025 14:00-0400 Body temperature 95.9 [degF] Dara Eisenberg APRN Work Phone: [facility] 04-28-2025 14:00-0400 Diastolic blood pressure 86 mm[Hg] Dara Eisenberg APRN Work Phone: [facility] 04-28-2025 14:00-0400 Heart rate 86 /min Dara Eisenberg APRN Work Phone: [facility] 04-28-2025 14:00-0400 SaO2% (BldA) [Mass fraction] 94 % Dara Eisenberg APRN Work Phone: [facility] 04-28-2025 14:00-0400 Systolic blood pressure 144 mm[Hg] Dara Eisenberg AQUATIC INSTRUCTOR Work Phone: [facility] 02-01-2025 14:09-0400 Body height 180.34 cm Dara Eisenberg AQUATIC INSTRUCTOR Work Phone: [facility] 02-01-2025 14:09-0400 Body mass index (BMI) [Ratio] 41.7 kg/m2 Dara Eisenberg AQUATIC INSTRUCTOR Work Phone: [facility] 02-01-2025 14:09-0400 Body temperature 96.5 [degF] Dara Eisenberg AQUATIC INSTRUCTOR Work Phone: [facility] 02-01-2025 14:09-0400 Body weight 135.62 kg Dara Eisenberg AQUATIC INSTRUCTOR Work Phone: [facility] 02-01-2025 14:09-0400 Diastolic blood pressure 68 mm[Hg] Dara Eisenberg AQUATIC INSTRUCTOR Work Phone: [facility] 02-01-2025 14:09-0400 Heart rate 102 /min Dara Eisenberg AQUATIC INSTRUCTOR Work Phone: [facility] 02-01-2025 14:09-0400 SaO2% (BldA) [Mass fraction] 96 % Dara Eisenberg AQUATIC INSTRUCTOR Work Phone: [facility] 02-01-2025 14:09-0400 Systolic blood pressure 114 mm[Hg] Dara Eisenberg APRN Work Phone: [facility] 11-05-2024 10:26-0400 Body height 180.34 cm [facility] 11-05-2024 10:26-0400 Body mass index (BMI) [Ratio] 44.7 kg/m2 [facility] 11-05-2024 10:26-0400 Body weight 145.6 kg [facility] 11-05-2024 10:26-0400 Diastolic blood pressure 68 mm[Hg] [facility] 11-05-2024 10:26-0400 Heart rate 98 /min [facility] 11-05-2024 10:26-0400 Respiratory rate 14 /min [facility] 11-05-2024 10:26-0400 SaO2% (BldA) [Mass fraction] 90 % [facility] 11-05-2024 10:26-0400 Systolic blood pressure 128 mm[Hg] [facility] 05-03-2024 14:14-0400 Body height 180.34 cm AQUATIC INSTRUCTORFauzia Eisenberg Work Phone: [facility] 05-03-2024 14:14-0400 Body mass index (BMI) [Ratio] 39.3 kg/m2 ROWDY Eisenberg Work Phone: [facility] 05-03-2024 14:14-0400 Body temperature 96.9 [degF] ROWDY Eisenberg Work Phone: [facility] 05-03-2024 14:14-0400 Body weight 128 kg ROWDY Eisenberg Work Phone: [facility] 05-03-2024 14:14-0400 Diastolic blood pressure 86 mm[Hg] ROWDY Eisenberg Work Phone: [facility] 05-03-2024 14:14-0400 Heart rate 108 /min ROWDY Eisenberg Work Phone: [facility] 05-03-2024 14:14-0400 SaO2% (BldA) [Mass fraction] 92 % ROWDY Eisenberg Work Phone: [facility] 05-03-2024 14:14-0400 Systolic blood pressure 142 mm[Hg] ROWDY Eisenberg Work Phone: [facility] 04-05-2024 13:44-0400 Body height 180.34 cm DPM Rc Curtis Work Phone: [facility] 04-05-2024 13:44-0400 Body mass index (BMI) [Ratio] 39.6 kg/m2 DPM Rc Curtis Work Phone: [facility] 04-05-2024 13:44-0400 Body temperature 97.4 [degF] DPM Rc Curtis Work Phone: [facility] 04-05-2024 13:44-0400 Body weight 128.82 kg DPM Rc Curtis Work Phone: [facility] 04-05-2024 13:44-0400 Diastolic blood pressure 70 mm[Hg] DPShantell Curtis Work Phone: [facility] 04-05-2024 13:44-0400 Heart rate 61 /min DPM Rc Curtis Work Phone: [facility] 04-05-2024 13:44-0400 SaO2% (BldA) [Mass fraction] 87 % DPM Rc Curtis Work Phone: [facility] 04-05-2024 13:44-0400 Systolic blood pressure 134 mm[Hg] DPShantell Curtis Work Phone: [facility] Encounters Encounter Date Encounter Type Care Provider Facility Start: 04-28-2025 End: 04-28-2025 ambulatory Dara Eisenberg APRN Work Phone: [facility] Work Phone: Start: 04-28-2025 End: 04-28-2025 Patient encounter procedure Dara Eisenberg APRN [facility] Work Phone: Start: 04-13-2025 Non-patient / Non-visit Angelic Blevins [facility] Work Phone: Start: 04-12-2025 Non-patient / Non-visit Erendira Richard [facility] Work Phone: Start: 04-09-2025 Non-patient / Non-visit Erendira Richard MD [facility] Work Phone: Start: 04-08-2025 Non-patient / Non-visit Erendira Richard MD [facility] Work Phone: Start: 04-07-2025 Non-patient / Non-visit Erendira Richard MD [facility] Work Phone: Start: 04-05-2025 End: 04-05-2025 ambulatory Dara Eisenberg APRN Work Phone: [facility] Work Phone: Start: 04-05-2025 End: 04-05-2025 Departed Referred Coco Starr MD -[facility] Start: 04-05-2025 Non-patient / Non-visit Erendira Richard MD [facility] Work Phone: Start: 02-15-2025 ambulatory ACNP Helen Rand lity:[facility] Start: 02-01-2025 End: 02-01-2025 ambulatory Dara Eisenberg APRN Work Phone: [facility] Work Phone: Start: 02-01-2025 End: 02-01-2025 Patient encounter procedure Dara Eisenberg APRN [facility] Work Phone: Start: 01-28-2025 End: 04-28-2025 ambulatory DARA EISENBERG Facility:[facility] Start: 01-27-2025 Non-patient / Non-visit Angelic Blevins [facility] Work Phone: Start: 01-24-2025 End: 01-26-2025 Evaluation and management of inpatient Ghassan Ding Facility:[facility] Start: 01-24-2025 Emergency department patient visit Manuel Fletcher Facility:[facility] Start: 11-05-2024 End: 11-05-[address] [facility] Work Phone: Start: 11-05-2024 End: 11-05-2024 Patient encounter procedure [facility] Physician [facility] Work Phone: Start: 08-29-2024 Evaluation and management of inpatient MERRILL LIVINGSTONI [facility] Start: 08-26-2024 Evaluation and management of inpatient BILL JIMENEZANI [facility] Start: 08-24-2024 [facility]24-[facility] Start: 08-21-2024 Evaluation and management of inpatient [facility] Start: 08-21-2024 Evaluation and management of inpatient [facility] Start: 08-20-2024 Evaluation and management of inpatient [facility] Start: 08-20-2024 Evaluation and management of inpatient [facility] Start: 08-19-2024 Evaluation and management of inpatient [facility] Start: 08-17-2024 Evaluation and management of inpatient [facility] Start: 08-16-2024 Evaluation and management of inpatient [facility] Start: 08-16-2024 Evaluation and management of inpatient [facility] Start: 08-15-2024 Evaluation and management of inpatient HUGO PRAJAPATI [facility] Start: 08-15-2024 End: 09-09-2024 Evaluation and management of inpatient SHAIKH MONO [facility] Start: 08-15-2024 Non-patient / Non-visit [facility] Work Phone: Start: 08-14-2024 Non-patient / Non-visit [facility] Work Phone: Start: 08-10-2024 End: 08-12-2024 Clinisync Result Encounter Shaikh Mono JARRETT Work Phone: [facility] Unsolicited Start: 08-10-2024 End: 08-12-2024 Clinisync Result Encounter Shaikh Mono JARRETT Work Phone: [facility] Unsolic[facility] Start: 05-03-2024 End: 05-03-2024 ambulatory AQUATIC INSTRUCTORFauzia Eisenberg Work Phone: [facility] Work Phone: Start: 05-03-2024 End: 05-03-2024 Patient encounter procedure ROWDY Eisenberg Work Phone: [facility] Physician [facility] Work Phone: Start: 04-12-2024 End: 04-12-2024 ambulatory AQUATIC INSTRUCTORFauzia Eisenberg Work Phone: [facility] Work Phone: Start: 04-12-2024 End: 04-12-2024 Patient encounter procedure ROWDY Eisenberg Work Phone: [facility] Physician [facility] Work Phone: Start: 04-08-2024 End: 04-08-2024 ambulatory ROWDY Eisenberg Work Phone: [facility] Work Phone: Start: 04-08-2024 End: 04-08-2024 Departed Referred ROWDY Eisenberg Work Phone: [facility] Start: 04-08-2024 Non-patient / Non-visit ROWDY Eisenberg Work Phone: [facility] Physician [facility] Work Phone: Start: 04-05-2024 End: 04-05-2024 Clinisync Result Encounter Shaikh Mono JARRETT Work Phone: [facility] Unsolicited Start: 04-05-2024 End: 04-05-2024 Clinisync Result Encounter Shaikh Mono JARRETT Work Phone: [facility]solic[facility] Start: 04-05-2024 End: 04-05-2024 ambulatory DPM Rc Curtis Work Phone: [facility] Work Phone: Start: 04-05-2024 End: 04-05-2024 Patient encounter procedure DPM Rc Curtis Work Phone: [facility] Physician [facility] Work Phone: Start: 03-29-2024 End: 03-29-2024 ambulatory DPM Rc Curtis Work Phone: [facility] Work Phone: Start: 03-29-2024 End: 03-29-2024 Departed Referred DPM Rc Curtis Work Phone: [facility] Start: 01-26-2024 Non-patient / Non-visit DPM Rc Curtis Work Phone: [facility] Work Phone: Start: 07-14-2022 End: 07-15-[address] EDELMIRA SANTILLAN Facility:[facility] Start: 05-13-2022 End: 05-14-[address] MADELEINE MARCELINO Facility:[facility] Procedures Date Procedure Procedure Detail Performing Clinician Start: 04-05-2025 Urine culture Dara Eisenberg APRN Work Phone: Start: 08-10-2024 Bacteria identified in Urine by Culture Shaikh Mono JARRETT Work Phone: Start: 04-08-2024 Acid Fast Smear AQUATIC INSTRUCTOR Elmer Eisenberg Work Phone: Start: 04-08-2024 AFB Specimen Processing AQUATIC INSTRUCTOR Dara Mendenhallrbacher Work Phone: Start: 04-08-2024 Anaerobic Cult, Extended Incub ROWDY Diamond Faina Work Phone: Start: 04-08-2024 Tissue Culture ROWDY wheat Faina Work Phone: Start: 04-05-2024 ALL CBC WITH AUTO DIFF Shaikh Mono JARRETT Work Phone: History of amputatio n of foot Status post partial amputation of right foot History of amputatio n of foot Status post partial amputation of right foot Dara Faina RENO COMPUTER SCIENCE PROFESSOR History of amputatio n of foot Status post partial amputation of right foot Dara Faina RENO COMPUTER SCIENCE PROFESSOR Plan of Treatment Date Care Activity Detail Author Start: 04-05-2025 Urine culture [facility] Start: 04-05-2025 Bacteria identified in Urine by Culture Urine Culture [facility] Start: 04-08-2024 Acid Fast Culture Acid Fast Culture [facility] Payers Date Payer Category Payer Self-pay 2025 Private Health Insurance [id number] 2024 Medicare [id number] 1961 Self-pay [id number] 1959 Unknown [id number] 21 1959 Unknown [id number] 1958 Unknown [id number] .[id number] 1958 Unknown [id number] .[id number] .59 1958 Unknown [id number] .[id number] .72 1958 Unknown [id number] .[id number] .72 1958 Unknown [id number] [id number] .727 1958 Unknown [id number] [id number] .727 1958 Unknown [id number] [id number] .1958 Unknown [id number] 2.16.840.1.031233.3.579.2 .1958 Unknown [id number] 2.16.840.1.439772.3.579.2 .1958 Unknown [id number] [id number] .1958 Unknown [id number] 2.16.840.1.217509.3.579.2 .727 Medicare [employer] [employer] [id number] Private Health Insurance [facility] [id number] Unknown Regular Insurance [id number] Unknown [id number] [id number] .531 Social History Date Type Detail Facility Tobacco smoking status OKIS Unknown if ever smoked [facility] Work Phone: Start: 1960 Sex Assigned At Male F [facility] Start: 04-05-2024 Tobacco smoking status NHIS Smoker (finding) [facility] Tobacco smoking status OKIS Tobacco smoking consumption unknown [facility] Start: 1960 Sex assigned at Not on file [facility] Gender identity [facility] Start: 11-05-2024 Sex Male (finding) [facility] Start: 04-05-2024 Tobacco smoking status NHIS Smokes tobacco daily (finding) [facility] Medical Equipment Procedure Code Equipment Code [...] Venous insufficiency (chronic) (peripheral) acute January 2:06pm [facility] Work Phone: 1(313) 251-629207-15-2025 Evaluation note* Diagnosis Onset Date Resolution Status Admit Date Atrial flutter acute February 01, 2025 2:06pm COPD (chronic obstructive pulmonary disease) acute February 01 2:06pm Heart failure acute February 01, 2025 2:06pm Hypertension acute February 01, 2 025 2:06pm Mixed hyperlipidemia acute February 01, [...] wit h diabetic neuropathy acute February 01, 025 2:06pm Venous insufficiency (chroni c) (peripheral) acute February 01, 2025 2:06pm Atrial flutter acute April 1:53pm Heart failure acute April 1:53pm Type 2 diabetes mellitus wit h diabetic neuropathy acute April 28, 2025 1:53pm [facility] Work Phone: 1(423) 506-958107-14-2025 NoteMicrobiology PROCEDURE: Blood Culture Charcoal [R1] SOURCE: Blood BODY SITE: Hand L COLLECTED DATE/TIME: 01/24/2025 17:12 EDT RECEIVED DATE/TIME: 01/24/2025 17:31 EDT START DATE/TIME: 01/24/2025 17:31 EDT FREE TEXT SOURCE: Timur MARCELO DO, Ghassan Ding III, DO, Ghassan Zepeda FINAL REPORTS Final Report [] Verified Date/Time: 01/31/2025 18:00 EDT No growth at 7 days. Performing Locations R1: This test was performed at: [facility], [address] [place] [address], [id number] , , GhzhodMercy Health Tiffin HospitalComment on above:Performed By: #### [id number] #### [facility] [address] [place] [address] [id number] NoteMicrobiology PROCEDURE: Blood Culture Charcoal [R1] SOURCE: Blood BODY SITE: Arm R COLLECTED DATE/TIME: 01/24/2025 17:07 EDT RECEIVED DATE/TIME: 01/24/2025 17:31 EDT START DATE/TIME: 01/24/2025 17:31 EDT FREE TEXT SOURCE: Timur MARCELO DO, Ghassan Ding III, DO, Ghassan Zepeda FINAL REPORTS Final Report [] Verified Date/Time: 01/31/2025 18:00 EDT No growth at 7 days. Performing Locations R1: This test was performed at: [facility], [address] [place] [address], [id number], QvscfmMercy Health Tiffin HospitalComment on above:Performed By: #### [id number] #### [facility] [address] [place] [address] [id number] NotePatient Education - Text Atrial Fibrillation Atrial [...] signals of the heart. ??? 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 Patient wasinsistent on trying an uquy-kyj-nboxvlm supplement that he stated would cure diabetes [...] his wounds and recommended continued follow-up with [facility] where he receives care. Patient successfully passed a voiding trial and was voiding easily after removalof [place]. Creatinine had improved from 1.4-0.8 on discharge. Medically stable for discharge home on 01/26/2025. Follow-up PCP in 7 to 10 days Continued care at [place] [facility] Referral sent to Dr. Dugan in [place] for endocrinology follow-up for better glucose control. [...] Completed -- 01/24/25 20:11:27 EDT Consult to Glove Operator (Glove Operator Consult) - Ordered -- 01/24/25 20:22:00 EDT, [...] equal & normal b (more content not included)...[facility] HospitalComment on above:Result Comment: Electronically Signed By: Ghassan Ding III, DO\.marco\Date and Time Signed: 01/26/25 16:13 [id number] NotePatient Education - Text Atrial Fibrillation Atrial [...] signals of the heart. ??? An ambulatory laboratory monitor to record your heart's activity for [...] warning signs of a (more content not included)...[facility]07-09-2025 NoteProgress Note - Pharmacy Pharmacy to [...] Plan; TBD Please contact Pharmacy at ext. [phone] if there are any questions.[facility]07-08-2025 NoteInterdisciplinary Note - OT Pt is seen for OT evaluation. [facility] score: 16/24. Pt is agreeable only to sitting EOB, no further transfers or mobility and becomes very agitated due to BLE pain. Pt is below functional baseline for ADL performance. OT to follow for treatment. Recommending HH vs SNF at this time pending progress with treatment. [facility]07-08-2025 NoteProgress Note-Physician Assessment/Plan 01/25 - WBC [...] Orders Initial Hospital Care/Day Moderate 55 Minutes 99256 Sbsq Hospital Care/Day Moderate 35 Minutes 11609 2. Cellulitis of leg (L03.119: Cellulitis of [...] Monitoring on telemetry. Patient noncompliant with anticoagulation. [id number] score is 4. Reports that Eliquis dose [...] despite clear documentation from previous admission in [place] in August 2024. Reports that he stopped taking all of his diabetes medications. 8. Insulin dependent type 2 diabetes mellitus (E11.9: Type 2 diabetes mellitus without complications) A1c: 12.6 BGT ACHS with sliding scale insulin as needed Lantus 30 units nightly at home. Patient noncompliant. Tolerated 20units QHS 01/24, uptitrate to 30 units today. Goal glucose will be less than 180. halfway (current) use of insulin (Z79.4: 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) Orders: acetaminophen, 975 [...] Capillary Glucose POC Cardiac Monitoring Consult to Glove Operator Creatine Kinase (more content not included)...[facility] HospitalComment on above:Result Comment: Electronically Signed By: Ghassan Ding III, DO\Date and Time Signed: 01/25/25 13:28 [id number] NoteConsultation Note Patient: TYLER SMITH Age: 64 [...] list: All Problems Smoker / SNOMED CT 458461819 / Confirmed Added secondary to documentation in Social History. Tobacco use / SNOMED CT 9418548657 / Confirmed, Active Problems (2) Smoker Tobacco [...] an outpatient with the wound center in [place].[facility] HospitalComment on above:Result Comment: Electronically Signed By: Sina Mckeon DPM\.br\Date and Time Signed: 01/25/25 12:56 [id number] NoteInterdisciplinary Note - PT PT Evaluation done this date. Pt. with on AM-PAC this date. He requires supervision to CGAx1 with all activity. Uses w/c and FWW at baseline. Recommend home with home health PT.[facility]07-08-2025 NoteProgress Note - Pharmacy Pharmacy to [...] Plan; TBD Please contact Pharmacy at ext. [phone] if there are any questions.[facility]07-07-2025 NoteHistory and Physical Basic Information Admit [...] poor historian, and obesity who presented to [facility]25 with chief complaint of [...] would be 75 kg. Given 2 L. [place] sepsis bolus will be 2.25 L, ever, [...] specifically. He follows with Dr. 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 He denies ever seeing vascular surgery. He follows with [facility]. Stated that he has not [...] ROM, Normal alignment. Ext (more content not included)...[facility] HospitalComment on above: Result Comment: Electronically Signed By: Ghassan Ding III, DO.br\Date and Time Signed: 01/24/25 20:28 [id number] NoteED Patient Education Note Cardiovascular Bleeding Varicose [...] at home: Medicines ??? Take and use qozq-hpa-gcmsezk and prescription medicines and creams only as [...] your limbs and wais (morecontent not included)...[facility] 01-24-2025 NoteProgress Note-Nurse tourniquerts removed by Shantell [facility]07-07-2025 NoteProgress Note - Pharmacy Pharmacy to [...] Plan; TBD Please contact Pharmacy at ext. [phone] if there are any questions. Spoke with Dr. Ding - he is ordering a lovenox bridgeFisher [facility]07-07-2025 NoteProgress Note-Nurse derrell stopped after 4 minutes for blood cultures that are new order. 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 d8id not say before. no saturating properly on at home H9Emdows [facility]04-18-2025 Evaluation note* Diagnosis Onset Date Resolution Status [...] c) (peripheral) acute November 05, 2024 10:18am [facility] Work Phone: 1(818) 771-424902-20-2025 [facility]-20[facility]Un[facility]02-19-20[facility] 09-07-2024 NoteDISCHARGE PLANNING UPDATE Patient now agreeable to SNF placement. Insurance authorization submitted for [facility] in [place]. Awaiting insurance decision.[facility]02-18-2025 [facility] 09-07-2024 [facility]02-18-2025 [facility]02-18-2025 [facility] 09-07-2024 [facility]02-18-2025 [facility]02-17-2025 [facility] 09-06-2024 [facility]02-17-2025 [facility]02-17-2025 [facility] 09-05-2024 [facility]02-16-2025 [facility]02-15-2025 [facility] 09-04-2024 [facility]Un[facility]02-15-2025 Note[facility]-20[facility] Note[facility] 09-03-2024 NoteGood [facility]02-14-2025 [facility]Un[facility]02-13-2025 [facility] 09-02-2024 [facility]Un[facility]02-13-2025 [facility]02-13-2025 [facility] 09-01-2024 NoteDISCHARGE PLANNING UPDATE [facility] ([place], [place]) is FOC. Per their admissions team, they are submitting to insurance for authorization today, 09/01.[facility] 09-01-2024 [facility]UnR[facility]02-12-2025 [facility]Un[facility]02-11-2025 [facility] 08-31-2024 [facility]Un[facility]02-11-2025 NoteGood [facility]02-11-2025 Note[facility] 08-30-2024 NoteGood [facility]02-10-2025 NoteGood [facility]02-10-2025 NoteGood [facility] 08-30-2024 NoteGood [facility]02-09-2025 NoteGood [facility]02-08-2025 [facility]Un[facility] 08-28-2024 [facility]Un[facility]02-08-2025 [facility]Un[facility]02-07-2025 [facility]Un[facility] 08-27-2024 [facility]Un[facility]02-06-2025 NoteUn[facility]02-06-2025 [facility]Un[facility] 08-26-2024 [facility]Un[facility]02-06-2025 [facility]Un[facility]02-05-2025 NoteUnR[facility] Hospital 08-25-2024 [facility] 08-24-2024 NotePatient is off unit for testing at this time.[facility]02-04-[facility]2025 Note [facility]2025 Note [facility]2025 Note [facility]-2025 Note [facility]01-[facility]30-[facility]-2025 Note [facility]-2025 Note [facility]Un[facility] HospitalEvaluation noteNo assessment information availableMer[facility] Work Phone: Evaluation note* Diagnosis Onset Date Resolution Status Type 2 diabetes mellitus acu te [facility] Work Phone: Evaluation note* Diagnosis Onset Date Resolution Status COPD (chronic obstructive pulmonary disease) acute Hypertension acute MRSA cellulitis of right foot acute Nicotine dependence acute Non-compliance acute Oxygen dependent acute Type 2 diabetes mellitus acu te Ulcer of right foot due to type 2 diabetes mellitus acute [facility] Work Phone: Evaluation note* Diagnosis Onset Date Resolution Status COPD (chronic obstructive pulmonary disease) acute Hypertension acute MRSA cellulitis of right foot acute Nicotine dependence acute Non-compliance acute Oxygen dependent acute Type 2 diabetes mellitus acu te Ulcer of right foot due to type 2 diabetes mellitus acute Acute osteomyelitis of foot acute [facility] Work Phone: Evaluation note* Diagnosis Onset Date Resolution Status COPD (chronic obstructive pulmonary disease) acute Hypertension acute MRSA cellulitis of right foot acute Nicotine dependence acute Non-compliance acute Oxygen dependent acute Type 2 diabetes mellitus acu te Ulcer of right foot due to type 2 diabetes mellitus acute Acute osteomyelitis of foot acute Low back pain acute [facility] Work Phone: Evaluation note* Diagnosis Onset [...] diabetes mellitus acute November 05, 2024 10:18am [facility] Work Phone: Reason for referral (narrative)No reason for referral information availableAultman [facility] Work Phone: Summary Purpose Family History No Family History Records Found Relationship Condition Age at Onset Recorded Date/T mecca mother Malignant neoplasm of cervix Unknown Advance Directives No Advanced Directives Records Found Advance Directive Response Recorded Date/ Time Advance Directives No March 2:40pm Chief Complaint and Reason for Visit Chief Complaint Admit Date [facility] follow up February 01, 2025 [...] diabetic n europathy April 28, 2025 1:53pm Chief Complaint Admit Date Amb Documentation January 27, 2025 8:33 am [facility] follow up February 01, 2025 [...] 2025 2:06pm Chief Complaint Admit Date F/U [facility] stay/Medications-HIGH R ISK November 05, 2024 10:18am Amb Documentation January 27, 2025 8:33 am [facility] follow up February 01, 2025 [...] 2024 10:18am Chief Complaint Admit Date F/U [facility] stay/Medications-HIGH R ISK November 05, 2024 10:18am [...] pital DATE CREATED AUTHOR AUTHOR'S ORGANIZ ATION 10/20/2024 [facility] DATE CREATED AUTHOR AUTHOR'S ORGANIZ ATION 01/28/2025 [facility] DATE CREATED AUTHOR AUTHOR'S ORGANIZ ATION 01/29/2025 [facility] DATE CREATED AUTHOR AUTHOR'S ORGANIZ ATION 01/30/2025 [facility] DATE CREATED AUTHOR AUTHOR'S ORGANIZ ATION 02/04/2025 [facility] DATE CREATED AUTHOR AUTHOR'S ORGANIZ ATION 04/01/2025 [facility] DATE CREATED AUTHOR AUTHOR'S ORGANIZ ATION 04/13/2025 [facility] DATE CREATED AUTHOR AUTHOR'S ORGANIZ ATION 05/01/2025 [facility] Care Teams (unrecognized sec tion and content) Team Status: Active Member Role Status Dates Magnolia Chavez LPN Attending Provider Active St art: January 26, 2024 Team Status: Inactive Member Role Status Dates Rc Curtis DPM MS Attending Provider Active Start: March 29, 2024 End: March 29, 2024 Team Status: Active Member Role Status Dates Dara Eisenberg APRN [employer]C Primary Care Provider Active Team Status: Inactive Member Role Status Dates Dara Eisenberg APRN [employer] Primary Care Provider, Attending Provider Active Start: April 05, 2024 End: April 05, 2024 Team Status: Active Member Role Status Dates Dara Eisenberg APRN [employer] Primary Care Provider, Attending Provider Active Start: April 08, 2024 Team Status: Inactive Member Role Status Dates Dara Eisenberg APRN [employer]-C Primary Care Provider Active Start: March 212023 End: April 08, 2024 Rc Curtis DPM MS Attending Provider Active Start: April 08, 2024 End: April 08, 2024 Team Status: Inactive Member Role Status Dates Dara Rohrbacher , AQUATIC INSTRUCTOR [employer] Primary Care Provider Active Start: March 222023 End: April 12, 2024 Navdeep Trujillo MD Attending Provider Active Sta rt: April 12, 2024 End: April 12, 2024 Team Status: Inactive Member Role Status Dates Dara Eisenberg APRN [employer]C Primary Care Provider, Attending Provider Active Start: May 03, 2024 End: May 03, 2024 Team Status: Active Member Role Status Dates Dara Eisenberg APRN [employer]C Primary Care Provider Active Start: July Shaikh Mono MD Attending Provider Active Sta rt: August 14, 2024 Team Status: Active Member Role Status Dates Dara Eisenberg APRN [employer] Primary Care Provider Active Start: July Shaikh Mono MD Attending Provider Active Sta rt: August 15, 2024 Team Status: Inactive Member Role Status Dates Dara Eisenberg APRN [employer] Primary Care Provider, Attending Provider Active Start: November 05, 2024 End: November 05, 2024 Team Status: Inactive Member Role Status Dates Dara Eisenberg APRN [employer]C Primary Care Provider Active Start: November 05, 2024 End: November 05, 2024 Dara Eisenberg APRN [employer]-C Attending Provider Act mook Start: November 05, 2024 End: November 05, 2024 Team Status: Active Member Role Status Dates Dara Eisenberg APRN [employer]-C Primary Care Provider Active Start: January 27, 2025 Angelic Blevins CMA Attending Provider Active Start: January 27, 2025 Team Status: Inactive Member Role Status Dates Dara Eisenberg APRN [employer] Primary Care Provider Active Start: February 01, 2025 End: February 01, 2025 Dara Eisenberg APRN [employer]-C Attending Provider Act mook Start: February 01, 2025 End: February 01, 2025 Team Status: Active Member Role Status Dates Dara Eisenberg APRN [employer]-C Primary Care Provider Active Start: March 212024 Coco Starr MD Attending Provider Active Sta rt: April 05, 2025 Team Status: Inactive Member Role Status Dates Coco Starr MD Attending Provider Active Sta rt: April 05, 2025 End: April 05, 2025 Team Status: Active Member Role Status Dates Dara Eisenberg APRN [employer] Primary Care Provider Active Start: March 212024 Erendira Richard MD Attending Provider Active Sta rt: April 06, 2025 Team Status: Active Member Role Status Dates Erendira Richard MD Attending Provider Active Sta rt: April 07, 2025 Team Status: Active Member Role Status Dates Erendira Richard MD Attending Provider Active Sta rt: April 08, 2025 Team Status: Active Member Role Status Dates Erendira Richard MD Attending Provider Active Sta rt: April 09, 2025 Team Status: Active Member Role Status Dates Erendira Richard MD Attending Provider Active Sta rt: April 12, 2025 Team Status: Active Member Role Status Dates Dara Eisenberg APRN [employer] Primary Care Provider Active Start: March 222024 Angelic Blevins CMA Attending Provider Active Start: April 13, 2025 Team Status: Inactive Member Role Status Dates Dara Eisenberg APRN [employer] Primary Care Provider Active Start: April 28, 2025 End: April 28, 2025 Dara Eisenberg APRN [employer]-C Attending Provider Act mook Start: April 28, 2025 End: April 28, 2025 Goals (unrecognized section and content) Goals [...] BE BASED ON THE PRIMARY CLINICAL RECORDS. [facility]. provides no warranty or guarantee of the accuracy or completeness of information in this document.
== END 2025-05-03 13:38 | disposition home or self-care (01) ==
LOC: WC 13:38
PROVIDERS: PCP Nurse Practitioner Family; Visit Provider Physician Assistant
DX: I87.313 Chronic venous hypertension (idiopathic) with ulcer of bilateral lower extremity (principal); L97.822 Non-pressure chronic ulcer of other part of left lower leg with fat layer exposed; L97.812 Non-pressure chronic ulcer of other part of right lower leg with fat layer exposed; E11.621 Type 2 diabetes mellitus with foot ulcer; L97.422 Non-pressure chronic ulcer of left heel and midfoot with fat layer exposed
CPT/HCPCS: 29581

== ENCOUNTER 2025-05-05 13:40 | Outpatient (OUT) | payer MEDICARE, SELFPAY ==
--- OUTSIDE RECORDS SUMMARY | 2024-04-08 04:15 | XMS_ITS ---
Author Organization The [facility] in [place] Address [address] [place] [address] Care Team Providers Care Artificial Intelligence Specialist Name Role Phone Dara Eisenberg CNP Primary Care Provider U Rc Prado Unavailable [phone] REASON FOR VISIT RT TMA Encounters Encounter Location Date Provider Diagnosis [facility] OUTPATIENT [address] [place] [address] 04/08/2024 Rc Curtis Plan Of Treatment No Information Progress Notes * Onofre SMITHDOB:1960 ([age] yo M)Acc No.[id number]:04/08/2024 UNLOCKED PROGRESS NOTE Patient: Onofre CORDERO Provider: Los Curtis DPM, MS :1960 A ge:63 Y S ex:Male Date:04/08/2024 Address:[address] [place], [place] [phone] Pcp:Dara Eisenberg CNP Check Out:12:18 PM EST * * Electronic signature of Cm Curtis DPM on 05/05/2025 at 01:47 PM EDT Sign off status: Pending Visit Status: C HK (Check Out) * Provider: Los Curtis DPM, MS Date: 0 04/08/2024 Generated for Cati ng/Klaudia/eTransmitting on: 1 01:47 PM EDT
--- OUTSIDE RECORDS SUMMARY | 2025-05-05 13:47 | XMS_ITS | Clinical Summary ---
Author Organization [facility] Address [address] [place] [id number] Care Team Providers Care Computer Network Specialist Name Role Phone No, Physician Primary Care [...] - 1-dose 75+ series) 2033 Care Teams Computer Network Specialist Relationship Specialty Start Date End Date No, Physician [facility] PCP - General 10/04/16
--- OUTSIDE RECORDS SUMMARY | 2025-05-05 13:47 | XMS_ITS | Patient Health Record ---
Author Organization [facility] in [place] Address [address] [place] [address] Care Team Providers Care Client Relationship Consultant Name Role Phone Dara Eisenberg CNP Primary [...] Isolated Organism: 1.1 Aerobic Culture Performed at: [facility] O:MRSA Aerobic Culture Organism: Staphylococcus aureus : Antibiotic Interpretation CHEN Status Isolated O:STAAUR Isolated Organism: 1.1 Aerobic Culture [address], [place] [id number] O:MRSA Aerobic Culture Organism: Staphylococcus aureus : Antibiotic Interpretation CHEN Status Isolated O:STAAUR Isolated Organism: 1.1 Aerobic Culture Assembly Technician: Yung Saeed PhD, Phone: [phone] O:MRSA Aerobic Culture Organism: Staphylococcus aureus : [...] Performing Lab: see note SEE REPORT - Mri Tech Id information not found for OBX-specific record producer legend LC - [facility] LB Aerobic Culture (Not yet rev iewed by provider) Interpretation: Performing Lab: Notes/Report: LEFT LOWER LEG WOUND [facility] , Aerobic Culture See Below For Report Clindamycin S F O:MRSA Antibiotic Interpretation CHEN Status Penicillin R F Levofloxacin Tetracycline Linezolid S F Trimethoprim/Sulfamethox azole R F Levofloxacin R F Clindamycin Vancomycin Erythromycin R F Tetracycline S F Rifampin S F Organism: Staphylococcus aureus : Gentamicin S F Ciprofloxacin R F Oxacillin R F Vancomycin S F Organism: 2.1 Linezolid Erythromycin O:STAAUR Isolated Gentamicin Isolated Ciprofloxacin Oxacillin Aerobic Culture Trimethoprim/Sulfamethox azole Rifampin Penicillin Aerobic Culture *ABNORMAL* Clindamycin S F O:MRSA Antibiotic Interpretation CHEN Status Penicillin R F Levofloxacin Tetracycline Linezolid S F Trimethoprim/Sulfamethox azole R F Levofloxacin R F Clindamycin Vancomycin Erythromycin R F Tetracycline S F Rifampin S F Organism: Staphylococcus aureus : Gentamicin S F Ciprofloxacin R F Oxacillin R F Vancomycin S F Organism: 2.1 Linezolid Erythromycin O:STAAUR Isolated Gentamicin Isolated Ciprofloxacin Oxacillin Aerobic Culture Trimethoprim/Sulfamethox azole Rifampin Penicillin Aerobic Culture Moderate growth Clindamycin S F O:MRSA Antibiotic Interpretation CHEN Status Penicillin R F Levofloxacin Tetracycline Linezolid S F Trimethoprim/Sulfamethox azole R F Levofloxacin R F Clindamycin Vancomycin Erythromycin R F Tetracycline S F Rifampin S F Organism: Staphylococcus aureus : Gentamicin S F Ciprofloxacin R F Oxacillin R F Vancomycin S F Organism: 2.1 Linezolid Erythromycin O:STAAUR Isolated Gentamicin Isolated Ciprofloxacin Oxacillin Aerobic Culture Trimethoprim/Sulfamethox azole Rifampin Penicillin Aerobic Culture Staphylococcus aureus Clindamycin S F O:MRSA Antibiotic Interpretation CHEN Status Penicillin R F Levofloxacin Tetracycline Linezolid S F Trimethoprim/Sulfamethox azole R F Levofloxacin R F Clindamycin Vancomycin Erythromycin R F Tetracycline S F Rifampin S F Organism: Staphylococcus aureus : Gentamicin S F Ciprofloxacin R F Oxacillin R F Vancomycin S F Organism: 2.1 Linezolid Erythromycin O:STAAUR Isolated Gentamicin Isolated Ciprofloxacin Oxacillin Aerobic Culture Trimethoprim/Sulfamethox azole Rifampin Penicillin Aerobic Culture Organism: Methicilli n Resis Staph Aureus : Clindamycin S F O:MRSA Antibiotic Interpretation CHEN Status Penicillin R F Levofloxacin Tetracycline Linezolid S F Trimethoprim/Sulfamethox azole R F Levofloxacin R F Clindamycin Vancomycin Erythromycin R F Tetracycline S F Rifampin S F Organism: Staphylococcus aureus : Gentamicin S F Ciprofloxacin R F Oxacillin R F Vancomycin S F Organism: 2.1 Linezolid Erythromycin O:STAAUR Isolated Gentamicin Isolated Ciprofloxacin Oxacillin Aerobic Culture Trimethoprim/Sulfamethox azole Rifampin Penicillin Aerobic Culture *ABNORMAL* Clindamycin S F O:MRSA Antibiotic Interpretation CHEN Status Penicillin R F Levofloxacin Tetracycline Linezolid S F Trimethoprim/Sulfamethox azole R F Levofloxacin R F Clindamycin Vancomycin Erythromycin R F Tetracycline S F Rifampin S F Organism: Staphylococcus aureus : Gentamicin S F Ciprofloxacin R F Oxacillin R F Vancomycin S F Organism: 2.1 Linezolid Erythromycin O:STAAUR Isolated Gentamicin Isolated Ciprofloxacin Oxacillin Aerobic Culture Trimethoprim/Sulfamethox azole Rifampin Penicillin Aerobic Culture Methicillin - resistant Clindamycin S F O:MRSA Antibiotic Interpretation CHEN Status Penicillin R F Levofloxacin Tetracycline Linezolid S F Trimethoprim/Sulfamethox azole R F Levofloxacin R F Clindamycin Vancomycin Erythromycin R F Tetracycline S F Rifampin S F Organism: Staphylococcus aureus : Gentamicin S F Ciprofloxacin R F Oxacillin R F Vancomycin S F Organism: 2.1 Linezolid Erythromycin O:STAAUR Isolated Gentamicin Isolated Ciprofloxacin Oxacillin Aerobic Culture Trimethoprim/Sulfamethox azole Rifampin Penicillin Aerobic Culture Based on resistance to oxacillin this isolate would be Clindamycin S F O:MRSA Antibiotic Interpretation CHEN Status Penicillin R F Levofloxacin Tetracycline Linezolid S F Trimethoprim/Sulfamethox azole R F Levofloxacin R F Clindamycin Vancomycin Erythromycin R F Tetracycline S F Rifampin S F Organism: Staphylococcus aureus : Gentamicin S F Ciprofloxacin R F Oxacillin R F Vancomycin S F Organism: 2.1 Linezolid Erythromycin O:STAAUR Isolated Gentamicin Isolated Ciprofloxacin Oxacillin Aerobic Culture Trimethoprim/Sulfamethox azole Rifampin Penicillin Aerobic Culture resistant to all currently available beta-lactam Clindamycin S F O:MRSA Antibiotic Interpretation CHEN Status Penicillin R F Levofloxacin Tetracycline Linezolid S F Trimethoprim/Sulfamethox azole R F Levofloxacin R F Clindamycin Vancomycin Erythromycin R F Tetracycline S F Rifampin S F Organism: Staphylococcus aureus : Gentamicin S F Ciprofloxacin R F Oxacillin R F Vancomycin S F Organism: 2.1 Linezolid Erythromycin O:STAAUR Isolated Gentamicin Isolated Ciprofloxacin Oxacillin Aerobic Culture Trimethoprim/Sulfamethox azole Rifampin Penicillin Aerobic Culture antimicrobial agents , with the exception of the newer Clindamycin S F O:MRSA Antibiotic Interpretation CHEN Status Penicillin R F Levofloxacin Tetracycline Linezolid S F Trimethoprim/Sulfamethox azole R F Levofloxacin R F Clindamycin Vancomycin Erythromycin R F Tetracycline S F Rifampin S F Organism: Staphylococcus aureus : Gentamicin S F Ciprofloxacin R F Oxacillin R F Vancomycin S F Organism: 2.1 Linezolid Erythromycin O:STAAUR Isolated Gentamicin Isolated Ciprofloxacin Oxacillin Aerobic Culture Trimethoprim/Sulfamethox azole Rifampin Penicillin Aerobic Culture cephalosporins with anti-MRSA activity, such as Clindamycin S F O:MRSA Antibiotic Interpretation CHEN Status Penicillin R F Levofloxacin Tetracycline Linezolid S F Trimethoprim/Sulfamethox azole R F Levofloxacin R F Clindamycin Vancomycin Erythromycin R F Tetracycline S F Rifampin S F Organism: Staphylococcus aureus : Gentamicin S F Ciprofloxacin R F Oxacillin R F Vancomycin S F Organism: 2.1 Linezolid Erythromycin O:STAAUR Isolated Gentamicin Isolated Ciprofloxacin Oxacillin Aerobic Culture Trimethoprim/Sulfamethox azole Rifampin Penicillin Aerobic Culture Ceftaroline Clindamycin S F O:MRSA Antibiotic Interpretation CHEN Status Penicillin R F Levofloxacin Tetracycline Linezolid S F Trimethoprim/Sulfamethox azole R F Levofloxacin R F Clindamycin Vancomycin Erythromycin R F Tetracycline S F Rifampin S F Organism: Staphylococcus aureus : Gentamicin S F Ciprofloxacin R F Oxacillin R F Vancomycin S F Organism: 2.1 Linezolid Erythromycin O:STAAUR Isolated Gentamicin Isolated Ciprofloxacin Oxacillin Aerobic Culture Trimethoprim/Sulfamethox azole Rifampin Penicillin Aerobic Culture Moderate growth Clindamycin S F O:MRSA Antibiotic Interpretation CHEN Status Penicillin R F Levofloxacin Tetracycline Linezolid S F Trimethoprim/Sulfamethox azole R F Levofloxacin R F Clindamycin Vancomycin Erythromycin R F Tetracycline S F Rifampin S F Organism: Staphylococcus aureus : Gentamicin S F Ciprofloxacin R F Oxacillin R F Vancomycin S F Organism: 2.1 Linezolid Erythromycin O:STAAUR Isolated Gentamicin Isolated Ciprofloxacin Oxacillin Aerobic Culture Trimethoprim/Sulfamethox azole Rifampin Penicillin Aerobic Culture Methicillin Resis St aph Aureus Clindamycin S F O:MRSA Antibiotic Interpretation CHEN Status Penicillin R F Levofloxacin Tetracycline Linezolid S F Trimethoprim/Sulfamethox azole R F Levofloxacin R F Clindamycin Vancomycin Erythromycin R F Tetracycline S F Rifampin S F Organism: Staphylococcus aureus : Gentamicin S F Ciprofloxacin R F Oxacillin R F Vancomycin S F Organism: 2.1 Linezolid Erythromycin O:STAAUR Isolated Gentamicin Isolated Ciprofloxacin Oxacillin Aerobic Culture Trimethoprim/Sulfamethox azole Rifampin Penicillin Aerobic Culture See Below For Report Clindamycin S F O:MRSA Antibiotic Interpretation CHEN Status Penicillin R F Levofloxacin Tetracycline Linezolid S F Trimethoprim/Sulfamethox azole R F Levofloxacin R F Clindamycin Vancomycin Erythromycin R F Tetracycline S F Rifampin S F Organism: Staphylococcus aureus : Gentamicin S F Ciprofloxacin R F Oxacillin R F Vancomycin S F Organism: 2.1 Linezolid Erythromycin O:STAAUR Isolated Gentamicin Isolated Ciprofloxacin Oxacillin Aerobic Culture Trimethoprim/Sulfamethox azole Rifampin Penicillin Aerobic Culture See Below For Report Clindamycin S F O:MRSA Antibiotic Interpretation CHEN Status Penicillin R F Levofloxacin Tetracycline Linezolid S F Trimethoprim/Sulfamethox azole R F Levofloxacin R F Clindamycin Vancomycin Erythromycin R F Tetracycline S F Rifampin S F Organism: Staphylococcus aureus : Gentamicin S F Ciprofloxacin R F Oxacillin R F Vancomycin S F Organism: 2.1 Linezolid Erythromycin O:STAAUR Isolated Gentamicin Isolated Ciprofloxacin Oxacillin Aerobic Culture Trimethoprim/Sulfamethox azole Rifampin Penicillin Aerobic Culture Performed at: [facility] Clindamycin S F O:MRSA Antibiotic Interpretation CHEN Status Penicillin R F Levofloxacin Tetracycline Linezolid S F Trimethoprim/Sulfamethox azole R F Levofloxacin R F Clindamycin Vancomycin Erythromycin R F Tetracycline S F Rifampin S F Organism: Staphylococcus aureus : Gentamicin S F Ciprofloxacin R F Oxacillin R F Vancomycin S F Organism: 2.1 Linezolid Erythromycin O:STAAUR Isolated Gentamicin Isolated Ciprofloxacin Oxacillin Aerobic Culture Trimethoprim/Sulfamethox azole Rifampin Penicillin Aerobic Culture [address] [place] [phone] Clindamycin S F O:MRSA Antibiotic Interpretation CHEN Status Penicillin R F Levofloxacin Tetracycline Linezolid S F Trimethoprim/Sulfamethox azole R F Levofloxacin R F Clindamycin Vancomycin Erythromycin R F Tetracycline S F Rifampin S F Organism: Staphylococcus aureus : Gentamicin S F Ciprofloxacin R F Oxacillin R F Vancomycin S F Organism: 2.1 Linezolid Erythromycin O:STAAUR Isolated Gentamicin Isolated Ciprofloxacin Oxacillin Aerobic Culture Trimethoprim/Sulfamethox azole Rifampin Penicillin Aerobic Culture Assembly Technician: Yung Saeed PhD, Phone: [phone] Clindamycin S F O:MRSA Antibiotic Interpretation CHEN Status Penicillin R F Levofloxacin Tetracycline Linezolid S F Trimethoprim/Sulfamethox azole R F Levofloxacin R F Clindamycin Vancomycin Erythromycin R F Tetracycline S F Rifampin S F Organism: Staphylococcus aureus : Gentamicin S F Ciprofloxacin R F Oxacillin R F Vancomycin S F Organism: 2.1 Linezolid Erythromycin O:STAAUR Isolated Gentamicin Isolated Ciprofloxacin Oxacillin Aerobic Culture Trimethoprim/Sulfamethox azole Rifampin Penicillin Aerobic Culture See Below For Report Clindamycin S F O:MRSA Antibiotic Interpretation CHEN Status Penicillin R F Levofloxacin Tetracycline Linezolid S F Trimethoprim/Sulfamethox azole R F Levofloxacin R F Clindamycin Vancomycin Erythromycin R F Tetracycline S F Rifampin S F Organism: Staphylococcus aureus : Gentamicin S F Ciprofloxacin R F Oxacillin R F Vancomycin S F Organism: 2.1 Linezolid Erythromycin O:STAAUR Isolated Gentamicin Isolated Ciprofloxacin Oxacillin Aerobic Culture Trimethoprim/Sulfamethox azole Rifampin Penicillin Aerobic Culture See Below For Report Clindamycin S F O:MRSA Antibiotic Interpretation CHEN Status Penicillin R F Levofloxacin Tetracycline Linezolid S F Trimethoprim/Sulfamethox azole R F Levofloxacin R F Clindamycin Vancomycin Erythromycin R F Tetracycline S F Rifampin S F Organism: Staphylococcus aureus : Gentamicin S F Ciprofloxacin R F Oxacillin R F Vancomycin S F Organism: 2.1 Linezolid Erythromycin O:STAAUR Isolated Gentamicin Isolated Ciprofloxacin Oxacillin Aerobic Culture Trimethoprim/Sulfamethox azole Rifampin Penicillin Aerobic Culture See Below For Report Clindamycin S F O:MRSA Antibiotic Interpretation CHEN Status Penicillin R F Levofloxacin Tetracycline Linezolid S F Trimethoprim/Sulfamethox azole R F Levofloxacin R F Clindamycin Vancomycin Erythromycin R F Tetracycline S F Rifampin S F Organism: Staphylococcus aureus : Gentamicin S F Ciprofloxacin R F Oxacillin R F Vancomycin S F Organism: 2.1 Linezolid Erythromycin O:STAAUR Isolated Gentamicin Isolated Ciprofloxacin Oxacillin Aerobic Culture Trimethoprim/Sulfamethox azole Rifampin Penicillin Aerobic Culture See Below For Report Clindamycin S F O:MRSA Antibiotic Interpretation CHEN Status Penicillin R F Levofloxacin Tetracycline Linezolid S F Trimethoprim/Sulfamethox azole R F Levofloxacin R F Clindamycin Vancomycin Erythromycin R F Tetracycline S F Rifampin S F Organism: Staphylococcus aureus : Gentamicin S F Ciprofloxacin R F Oxacillin R F Vancomycin S F Organism: 2.1 Linezolid Erythromycin O:STAAUR Isolated Gentamicin Isolated Ciprofloxacin Oxacillin Aerobic Culture Trimethoprim/Sulfamethox azole Rifampin Penicillin Aerobic Culture See Below For Report Clindamycin S F O:MRSA Antibiotic Interpretation CHEN Status Penicillin R F Levofloxacin Tetracycline Linezolid S F Trimethoprim/Sulfamethox azole R F Levofloxacin R F Clindamycin Vancomycin Erythromycin R F Tetracycline S F Rifampin S F Organism: Staphylococcus aureus : Gentamicin S F Ciprofloxacin R F Oxacillin R F Vancomycin S F Organism: 2.1 Linezolid Erythromycin O:STAAUR Isolated Gentamicin Isolated Ciprofloxacin Oxacillin Aerobic Culture Trimethoprim/Sulfamethox azole Rifampin Penicillin Aerobic Culture See Below For Report Clindamycin S F O:MRSA Antibiotic Interpretation CHEN Status Penicillin R F Levofloxacin Tetracycline Linezolid S F Trimethoprim/Sulfamethox azole R F Levofloxacin R F Clindamycin Vancomycin Erythromycin R F Tetracycline S F Rifampin S F Organism: Staphylococcus aureus : Gentamicin S F Ciprofloxacin R F Oxacillin R F Vancomycin S F Organism: 2.1 Linezolid Erythromycin O:STAAUR Isolated Gentamicin Isolated Ciprofloxacin Oxacillin Aerobic Culture Trimethoprim/Sulfamethox azole Rifampin Penicillin Aerobic Culture See Below For Report Clindamycin S F O:MRSA Antibiotic Interpretation CHEN Status Penicillin R F Levofloxacin Tetracycline Linezolid S F Trimethoprim/Sulfamethox azole R F Levofloxacin R F Clindamycin Vancomycin Erythromycin R F Tetracycline S F Rifampin S F Organism: Staphylococcus aureus : Gentamicin S F Ciprofloxacin R F Oxacillin R F Vancomycin S F Organism: 2.1 Linezolid Erythromycin O:STAAUR Isolated Gentamicin Isolated Ciprofloxacin Oxacillin Aerobic Culture Trimethoprim/Sulfamethox azole Rifampin Penicillin Aerobic Culture See Below For Report Clindamycin S F O:MRSA Antibiotic Interpretation CHEN Status Penicillin R F Levofloxacin Tetracycline Linezolid S F Trimethoprim/Sulfamethox azole R F Levofloxacin R F Clindamycin Vancomycin Erythromycin R F Tetracycline S F Rifampin S F Organism: Staphylococcus aureus : Gentamicin S F Ciprofloxacin R F Oxacillin R F Vancomycin S F Organism: 2.1 Linezolid Erythromycin O:STAAUR Isolated Gentamicin Isolated Ciprofloxacin Oxacillin Aerobic Culture Trimethoprim/Sulfamethox azole Rifampin Penicillin Aerobic Culture See Below For Report Clindamycin S F O:MRSA Antibiotic Interpretation CHEN Status Penicillin R F Levofloxacin Tetracycline Linezolid S F Trimethoprim/Sulfamethox azole R F Levofloxacin R F Clindamycin Vancomycin Erythromycin R F Tetracycline S F Rifampin S F Organism: Staphylococcus aureus : Gentamicin S F Ciprofloxacin R F Oxacillin R F Vancomycin S F Organism: 2.1 Linezolid Erythromycin O:STAAUR Isolated Gentamicin Isolated Ciprofloxacin Oxacillin Aerobic Culture Trimethoprim/Sulfamethox azole Rifampin Penicillin Aerobic Culture See Below For Report Clindamycin S F O:MRSA Antibiotic Interpretation CHEN Status Penicillin R F Levofloxacin Tetracycline Linezolid S F Trimethoprim/Sulfamethox azole R F Levofloxacin R F Clindamycin Vancomycin Erythromycin R F Tetracycline S F Rifampin S F Organism: Staphylococcus aureus : Gentamicin S F Ciprofloxacin R F Oxacillin R F Vancomycin S F Organism: 2.1 Linezolid Erythromycin O:STAAUR Isolated Gentamicin Isolated Ciprofloxacin Oxacillin Aerobic Culture Trimethoprim/Sulfamethox azole Rifampin Penicillin Aerobic Culture See Below For Report Clindamycin S F O:MRSA Antibiotic Interpretation CHEN Status Penicillin R F Levofloxacin Tetracycline Linezolid S F Trimethoprim/Sulfamethox azole R F Levofloxacin R F Clindamycin Vancomycin Erythromycin R F Tetracycline S F Rifampin S F Organism: Staphylococcus aureus : Gentamicin S F Ciprofloxacin R F Oxacillin R F Vancomycin S F Organism: 2.1 Linezolid Erythromycin O:STAAUR Isolated Gentamicin Isolated Ciprofloxacin Oxacillin Aerobic Culture Trimethoprim/Sulfamethox azole Rifampin Penicillin Aerobic Culture See Below For Report Clindamycin S F O:MRSA Antibiotic Interpretation CHEN Status Penicillin R F Levofloxacin Tetracycline Linezolid S F Trimethoprim/Sulfamethox azole R F Levofloxacin R F Clindamycin Vancomycin Erythromycin R F Tetracycline S F Rifampin S F Organism: Staphylococcus aureus : Gentamicin S F Ciprofloxacin R F Oxacillin R F Vancomycin S F Organism: 2.1 Linezolid Erythromycin O:STAAUR Isolated Gentamicin Isolated Ciprofloxacin Oxacillin Aerobic Culture Trimethoprim/Sulfamethox azole Rifampin Penicillin Aerobic Culture See Below For Report Clindamycin S F O:MRSA Antibiotic Interpretation CHEN Status Penicillin R F Levofloxacin Tetracycline Linezolid S F Trimethoprim/Sulfamethox azole R F Levofloxacin R F Clindamycin Vancomycin Erythromycin R F Tetracycline S F Rifampin S F Organism: Staphylococcus aureus : Gentamicin S F Ciprofloxacin R F Oxacillin R F Vancomycin S F Organism: 2.1 Linezolid Erythromycin O:STAAUR Isolated Gentamicin Isolated Ciprofloxacin Oxacillin Aerobic Culture Trimethoprim/Sulfamethox azole Rifampin Penicillin Performing Lab: see note LC - [facility] SEE REPORT - Mri Tech Id information not found for OBX-specific record producer legend Anaerobic Culture (Not yet r [...] ulcer due to type 2 diabetes mellitus (8929802031042) Type 2 diabetes mellitus with foot ulcer (E11.621) Active confirmed Problem Chronic ulcer of lower extremity (57090379) Non-pressure chronic ulcer of other part of right lower leg limited to breakdown of skin (L97.811) Active confirmed Problem Chronic non-pressure ulcer of calf extending to fat level (7871477180779637 1) Non-pressure chronic ulcer of other part of right lower leg with fat layer exposed (L97.812) Active confirmed Problem Non-pressure chronic ulcer of other part of left lower leg with fat layer exposed (L97.822) Active confirmed Problem Acute exacerbation of chronic obstructive airways disease (367264985) COPD exacerbation (J44.1) Active confirmed Problem 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 with ulcer (I87.313) Active confirmed Problem Ulcer of left lower leg (disorder) (5029624030645335 3) Leg ulcer, left, limited to breakdown of skin (L97.921) Active confirmed Problem Acute osteomyelitis of ankle and/or foot (940262238) Acute osteomyelitis of right ankle or foot [...] stump (T87.89) Active confirmed Problem Diabetes mellitus (91939059) Diabetes mellitus (E11.9) Active confirmed Problem Polyneuropathy due to type 2 diabetes mellitus (573822250) Controlled type 2 diabetes mellitus with diabetic polyneuropathy, unspecified whether vermin exterminator insulin use (E11.42) Active confirmed Problem Polyneuropathy due to type 2 diabetes mellitus (171461373) 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
--- OUTSIDE RECORDS SUMMARY | 2025-05-05 13:47 | XMS_ITS | Clinical Summary ---
Author Organization [facility] Address [address] [place] [address] Care Team Providers Care Ic Designer Standard Cells Name Role Phone Dara Eisenberg NP Primary Care Provider Social History Tobacco Use Types Packs/Day Years Used Date Smoking Tobacco: Never Assessed Sex and Gender Information Value Date Recorded Sex Assigned at Not on file Legal Sex Male 7:20 PM EDT Gender Identity Not on file Sexual Orientation Not on file Plan of Treatment Not on file Insurance [employer] MEDICARE Care Teams Ic Designer Standard Cells Relationship Specialty Start Date End Date Dara Eisenberg NP [address] [facility] [place] [address] [place] [address] PCP - General Family Medicine 11/11/24
--- OUTSIDE RECORDS SUMMARY | 2025-05-05 13:47 | XMS_ITS | Clinical Summary ---
Author Organization [facility] Address [address] [place] [address] Care Team Providers Care Rn Procedures Name Role Phone Unavailable Primary Care Provider [...]
--- OUTSIDE RECORDS SUMMARY | 2025-05-05 13:47 | XMS_ITS | Encounter Summary ---
Author Organization [facility] Address [address] [place] [address] Care Team Providers Care Enrollment Specialist Name Role Phone Dara Eisenberg MOGUL OPERATOR Primary Care Provider Encounter Details Date Type Department Care Team ([facility] Contact Info) Description 01/26/2025 Abstract [facility] [address] [place] [id number] Sina Mckeon, DPM FACFAS [address] [place] [address] Social History Tobacco Use Types Packs/Day Years [...] on filedocumented in this encounter Care Teams Enrollment Specialist Relationship Specialty Start Date End Date Dara Eisenberg NP [address] [facility] [address] [place] [address] PCP - General Family Medicine 11/11/24 documented as of this encounter
--- OUTSIDE RECORDS SUMMARY | 2025-05-05 13:47 | XMS_ITS | CCD ---
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 8.9-11.1 [facility] Comment on above: Performed By: #### 2 [id number] #### [facility] [address] [place] [address] Chloride [Moles/Vol] 103 mmol/L Normal 101-111 [facility] Comment on above: Performed By: #### 2 [id number] #### [facility] [address] [place] [address] CO2 [Moles/Vol] 29 mmol/L Normal 21-31 [facility] Comment on above: Performed By: #### 2 [id number] #### [facility] [address] [place] [address] Creatinine [Mass/Vol] 0.8 mg/dL Normal 0.5-1.3 [facility] Comment on above: Performed By: #### 2 215758 #### [facility] [address] [place] [address] Glucose [Mass/Vol] 214 mg/dL High 55-199 [facility] Comment on above: Performed By: #### 2 463932 #### [facility] [address] [place] [address] Potassium [Moles/Vol] 3.6 mmol/L Normal 3.5-5.3 [facility] Comment on above: Performed By: #### 2 145305 #### [facility] [address] [place] [address] Sodium [Moles/Vol] 135 mmol/L Normal 135-145 [facility] Comment on above: Performed By: #### 2 446301 #### [facility] [address] [place] [address] Urea nitrogen [Mass/Vol] 24 mg/dL High 5-21 [facility] Comment on above: Performed By: #### 2 004709 #### [facility] [address] [place] [address] CBC w/ Auto Diffon 5 Basophil Absolute 0.1 E9/L Normal 0.0-0.2 [facility] Comment on above: Performed By: #### 2 [id number] #### [facility] [address] [place] [address] Basophils/100 WBC (Bld) 1.4 % Normal 0.0-2.0 [facility] Comment on above: Performed By: #### 2 316907 #### [facility] [address] [place] [address] Eos Absolute 0.3 E9/L Normal 0.0-0.5 [facility] Comment on above: Performed By: #### 2 781547 #### [facility] [address] [place] [address] Eosinophils/100 WBC (Bld) 3.5 % Normal 0.0-8.0 [facility] Comment on above: Performed By: #### 2 093843 #### [facility] [address] [place] [address] Erythrocyte distribution width (RBC) [Ratio] 17.1 % High 10.9-14.2 [facility] Comment on above: Performed By: #### 2 883103 #### [facility] [address] [place] [address] Hematocrit (Bld) [Volume fraction] 36.9 % Low 37.7-49.0 [facility] Comment on above: Performed By: #### 2 933405 #### [facility] [address] [place] [address] Hemoglobin (Bld) [Mass/Vol] 12.7 g/dL Low 13.5-17.5 [facility] Comment on above: Performed By: #### 2 169115 #### [facility] [address] [place] [address] Lymph Absolute 1.5 E9/L Normal 1.0-4.0 [facility] Comment on above: Performed By: #### 2 [id number] #### [facility] [address] [place] [address] Lymphocytes/100 WBC (Bld) 18.9 % Normal 14.0-50.0 [facility] Comment on above: Performed By: #### 2 546343 #### [facility] [address] [place] [address] MCH (RBC) [Entitic mass] 31.6 pg Normal 27.0-34.0 [facility] Comment on above: Performed By: #### 2 413696 #### [facility] [address] [place] [address] MCHC (RBC) [Mass/Vol] 34.4 g/dL Normal 31.4-36.0 [facility] Comment on above: Performed By: #### 2 952926 #### [facility] [address] [place] [address] MCV (RBC) [Entitic vol] 91.9 fL Normal 80.0-100.0 [facility] Comment on above: Performed By: #### 2 264504 #### [facility] [address] [place] [address] Pierce Absolute 1.0 E9/L Normal 0.2-1.0 [facility] Comment on above: Performed By: #### 2 093557 #### [facility] [address] [place] [address] Monocytes/100 WBC (Bld) 12.1 % Normal 4.0-14.0 [facility] Comment on above: Performed By: #### 2 864479 #### [facility] [address] [place] [address] Neutro Absolute 5.1 E9/L Normal 2.0-7.5 [facility] Comment on above: Performed By: #### 2 471214 #### [facility] [address] [place] [address] Neutro Auto 64.1 % Normal 36.0-75.0 [facility] Comment on above: Performed By: #### 2 974571 #### [facility] [address] [place] [address] Platelet 226.0 E9/L Normal 150.0-500.0 [facility] Comment on above: Performed By: #### 2 115611 #### [facility] [address] [place] [address] Platelet mean volume (Bld) [Entitic vol] 8.5 fL Normal 6.4-10.8 [facility] Comment on above: Performed By: #### 2 415312 #### [facility] [address] [place] [address] RBC 4.0 E12/L Low 4.3-5.9 [facility] Comment on above: Performed By: #### 2 672372 #### [facility] [address] [place] [address] WBC 7.9 E9/L Normal 4.0-11.0 [facility] Comment on above: Performed By: #### 2 627589 #### [facility] [address] [place] [address] Capillary Glucose POCon Glucose [Mass/Vol] 318 mg/dL High 55-99 [facility] Comment on above: Result Comment: Cindy calle RN/ Performed By: #### 2 [id number] #### [facility] [address] [place] [address] Glucose [Mass/Vol] 203 mg/dL High 55-99 [facility] Comment on above: Result Comment: Cindy GAMBOA Performed By: #### 2 [id number] #### [facility] [address] [place] [address] Inpatient Clinical Summaryon 01-26-2025 Inpatient Clinical Summary Inpatient Clinical Summary [address] [address] Clinical Summary Person Information: Name: TYLER SMITH Age: 64 Years : 1960 Sex: Male PCP: DARA EISENBERG CNP Marital Status: Single Phone: [phone] Race: White Ethnicity: Non- or Language: Micronesian Visit Id: Visit Reason: Medical problem - major; VERICOSE VEIN TOURNIQUET Speciality: Acuity: Enc Type: Inpatient Med Service: Medical Arrival: 01/24/2025 11:29:33 Discharge: Dispo Type: Admitted as IP to this Hosp Address: [address] [place] [address] Provider Notes: Diagnosis: 1:Severe sepsis; 2:Cellulitis of leg; 3:KRISTINE (acute kidney injury); 4:Atrial fibrillation with RVR; 5: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; 6:Hyponatremia; 7:Noncompliance with medications; 8:Insulin dependent type 2 diabetes 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; 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 Problems Active Smoker [...] up: With: Address: When: DARA EISENBERG [address] [facility] [place] [address] [phone] Business (1) [facility], [facility] [place] [address] [phone] Business (1) 01/31/2025 11:00 AM Comments: Call Dr for diagnosis based follow up With: Address: When: [facility] [phone] With: Address: When: OZZIE KASPERBAGH [address] [place], [place] [phone] Business (1) Within 4 weeks Comments: Call for followup appointment With: Address: When: Follow up as scheduled with [facility] With: Address: When: [facility] [address] [place] [address] Business (1) Within 3 to 5 days Comments: Call for followup appointment Patient Education Information: Atrial Fibrillation; Type 2 Diabetes Mellitus, Diagnosis, Adult; Sepsis, Diagnosis, Adult; Atrial Fibrillation; Cellulitis, Adult; Cellulitis, Adult, [id number]; Bleeding Varicose Veins Normal [facility] Inpatient Patient Summaryon 01-26-2025 Inpatient Patient Summary Inpatient Patient Summary [address] [address] Patient Discharge Instructions PERSON INFORMATION Name: TYLER SMITH Date of : 1960 Current Date: 01/26/2025 16:16:53 PHYSICIANS Admitting Physician: Ghassan Ding III, DO Primary Care Physician: DARA EISENBERG CNP Phone Number: [phone] Comment: Discharge Diagnosis: 1:Severe sepsis; 2:Cellulitis of leg; 3:KRISTINE (acute kidney injury); 4:Atrial fibrillation with RVR; 5: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; 6:Hyponatremia; 7:Noncompliance with medications; 8:Insulin dependent type 2 diabetes mellitus; USP (current) use of insulin Condition at Discharge: [...] up: With: Address: When: [facility] [phone] With: Address: When: OZZIE DUGAN [address] [place] [address] Business (1) Within 4 weeks Comments: Call for followup appointment With: Address: When: Follow up as scheduled with [facility] With: Address: When: [facility] [address] [place] [phone] Business (1) Within 3 to 5 days Comments: Call for followup appointment With: Address: When: DARA EISENBERG [address], [place] [address] [phone] Business (1) In 3 days 01/27/2025 Comments: [...] OCCURRED DURING YOUR HOSPITAL STAY New Medications [facility], [address] [place] [place] [id number], [phone] cephalexin (cephalexin 500 mg Cap) 1 Capsules [...] Dose: ____ C (more content not included)... [facility] Interdisciplinary Note - Giovany e Manageron 01-26-2025 Interdisciplinary Note - Griddle Attendant Interdisciplinary Note - Griddle Attendant Chart reviewed and patient previously rounded on by KALI Carson. Per [facility] portal multiple referrals were put into [facility] for HHC and [facility] was the only one able to accept [...] for discharge needs. IMM copy at bedside. [facility] Comment on above: Result Comment: Elec tronically Signed By: Sarah Snyder.br\Date and Time Signed: 01/26/25 11:38 EDT PTon 01-26-2025 INR Coag (PPP) [Relative time] 0.97 {INR} Invalid Interpretation Code [facility] Comment on above: Result Comment: INR results are specifically intended to assess patients stabilized on long-term Anticoagulation therapy suggested INR???s ???Less Intensive Anticoagulation??? 2.0 ??? 3.0 Conventional Range 3.0 ??? 4.5 Performed By: #### 2 [id number] #### [facility] [address] [place] [address] PT 10.9 second(s) Normal 9.4-12.5 [facility] Comment on above: Result [...] the same coagulation reagent and instrumentation as [facility]. Currently there are no coagulation studies available worldwide for children to 14 days, and no normal ranges. Performed By: #### 2 [id number] #### [facility] [address] [place] [address] eGFRon 01-26-2025 eGFR 97 mL/min/1.73 m2 Normal >=59 [facility] Comment on above: Performed By: #### 1 [id number] #### [facility] [address] [place] [address] CBC w/ Auto Diffon 5 Basophil Absolute 0.1 E9/L Normal 0.0-0.2 [facility] Comment on above: Performed By: #### 2 847539 #### [facility] [address] [place] [address] Basophils/100 WBC (Bld) 0.9 % Normal 0.0-2.0 [facility] Comment on above: Performed By: #### 2 850537 #### [facility] [address] [place] [address] Eos Absolute 0.1 E9/L Normal 0.0-0.5 [facility] Comment on above: Performed By: #### 2 141497 #### [facility] [address] [place] [address] Eosinophils/100 WBC (Bld) 0.9 % Normal 0.0-8.0 [facility] Comment on above: Performed By: #### 2 749857 #### [facility] [address] [place] [address] Erythrocyte distribution width (RBC) [Ratio] 17.1 % High 10.9-14.2 [facility] Comment on above: Performed By: #### 2 068401 #### [facility] [address] [place] [address] Hematocrit (Bld) [Volume fraction] 38.3 % Normal 37.7-49.0 [facility] Comment on above: Performed By: #### 2 726183 #### [facility] [address] [place] [address] Hemoglobin (Bld) [Mass/Vol] 13.2 g/dL Low 13.5-17.5 [facility] Comment on above: Performed By: #### 2 247112 #### [facility] [address] [place] [address] Lymph Absolute 1.1 E9/L Normal 1.0-4.0 [facility] Comment on above: Performed By: #### 2 584960 #### [facility] [address] [place] [address] Lymphocytes/100 WBC (Bld) 9.3 % Low 14.0-50.0 [facility] Comment on above: Performed By: #### 2 861808 #### [facility] [address] [place] [address] MCH (RBC) [Entitic mass] 31.6 pg Normal 27.0-34.0 [facility] Comment on above: Performed By: #### 2 091557 #### [facility] [address] [place] [address] MCHC (RBC) [Mass/Vol] 34.5 g/dL Normal 31.4-36.0 [facility] Comment on above: Performed By: #### 2 926618 #### [facility] [address] [place] [address] MCV (RBC) [Entitic vol] 91.5 fL Normal 80.0-100.0 [facility] Comment on above: Performed By: #### 2 277837 #### [facility] [address] [place] [address] Pierce Absolute 1.2 E9/L High 0.2-1.0 [facility] Comment on above: Performed By: #### 2 876558 #### [facility] [address] [place] [address] Monocytes/100 WBC (Bld) 10.0 % Normal 4.0-14.0 [facility] Comment on above: Performed By: #### 2 495723 #### [facility] [address] [place] [address] Neutro Absolute 9.1 E9/L High 2.0-7.5 [facility] Comment on above: Performed By: #### 2 215815 #### [facility] [address] [place] [address] Neutro Auto 78.9 % High 36.0-75.0 [facility] Comment on above: Performed By: #### 2 801543 #### [facility] [address] [place] [address] Platelet 228.0 E9/L Normal 150.0-500.0 [facility] Comment on above: Performed By: #### 2 028739 #### [facility] [address] [place] [address] Platelet mean volume (Bld) [Entitic vol] 8.9 fL Normal 6.4-10.8 [facility] Comment on above: Performed By: #### 2 840493 #### [facility] [address] [place] [address] RBC 4.2 E12/L Low 4.3-5.9 [facility] Comment on above: Performed By: #### 2 185140 #### [facility] [address] [place] [address] WBC 11.5 E9/L High 4.0-11.0 [facility] Comment on above: Performed By: #### 2 235227 #### [facility] [address] [place] [address] CKon 01-25-2025 Total CK 64 Int._Unit/L Normal 14-261 [facility] Comment on above: Performed By: #### 2 780775 #### [facility] [address] [place] [address] CMPon 01-25-2025 Albumin [Mass/Vol] 2.9 g/dL Low 3.3-5.0 [facility] Comment on above: Performed By: #### 2 037621 #### [facility] [address] [place] [address] Albumin/Globulin [Mass ratio] 1.0 {ratio} Low 1.1-2.2 [facility] Comment on above: Performed By: #### 2 [id number] #### [facility] [address] [place] [address] Alk Phos 85 Int._Unit/L Normal 21-98 [facility] Comment on above: Performed By: #### 2 835141 #### [facility] [address] [place] [address] ALT 16 Int._Unit/L Normal 6-46 [facility] Comment on above: Performed By: #### 2 789084 #### [facility] [address] [place] [address] Anion gap [Moles/Vol] 11 mmol/L Normal 6-16 [facility] Comment on above: Performed By: #### 2 727504 #### [facility] [address] [place] [address] AST 12 Int._Unit/L Normal 5-43 [facility] Comment on above: Performed By: #### 2 742136 #### [facility] [address] [place] [address] Bili Total 0.5 mg/dL Normal 0.0-1.1 [facility] Comment on above: Performed By: #### 2 782058 #### [facility] [address] [place] [address] BUN/Creat Ratio 37 No Units High 10-20 [facility] Comment on above: Performed By: #### 2 559802 #### [facility] [address] [place] [address] Calcium [Mass/Vol] 8.9 mg/dL Normal 8.9-11.1 [facility] Comment on above: Performed By: #### 2 639784 #### [facility] [address] [place] [address] Chloride [Moles/Vol] 100 mmol/L Low 101-111 [facility] Comment on above: Performed By: #### 2 610847 #### [facility] [address] [place] [address] CO2 [Moles/Vol] 25 mmol/L Normal 21-31 [facility] Comment on above: Performed By: #### 2 470213 #### [facility] [address] [place] [address] Creatinine [Mass/Vol] 1.2 mg/dL Normal 0.5-1.3 [facility] Comment on above: Performed By: #### 2 129469 #### [facility] [address] [place] [address] Globulin (S) [Mass/Vol] 2.8 g/dL Normal 1.4-4.0 [facility] Comment on above: Performed By: #### 2 528440 #### [facility] [address] [place] [address] Glucose [Mass/Vol] 345 mg/dL High 55-199 [facility] Comment on above: Performed By: #### 2 187401 #### [facility] [address] [place] [address] Potassium [Moles/Vol] 3.6 mmol/L Normal 3.5-5.3 [facility] Comment on above: Performed By: #### 2 540316 #### [facility] [address] [place] [address] Protein [Mass/Vol] 5.7 g/dL Low 6.0-7.8 [facility] Comment on above: Performed By: #### 2 266866 #### [facility] [address] [place] [address] Sodium [Moles/Vol] 132 mmol/L Low 135-145 [facility] Comment on above: Performed By: #### 2 838770 #### [facility] [address] [place] [address] Urea nitrogen [Mass/Vol] 44 mg/dL High 5-21 [facility] Comment on above: Performed By: #### 2 471611 #### [facility] [address] [place] [address] Capillary Glucose POCon 07-0 Glucose [Mass/Vol] 357 mg/dL High 55-99 [facility] Comment on above: Result Comment: Cindy GAMBOA Performed By: #### 2 [id number] #### [facility] [address] [place] [address] Glucose [Mass/Vol] 351 mg/dL High 55-99 [facility] Comment on above: Result Comment: Cindy GAMBOA Performed By: #### 2 [id number] #### [facility] [address] [place] [address] Glucose [Mass/Vol] 277 mg/dL High 55-99 [facility] Comment on above: Result Comment: Cindy GAMBOA Performed By: #### 2 [id number] #### [facility] [address] [place] [address] Glucose [Mass/Vol] 289 mg/dL High 55-99 [facility] Comment on above: Result Comment: Cindy GAMBOA Performed By: #### 2 [id number] #### [facility] [address] [place] [address] Glucose [Mass/Vol] 282 mg/dL High 55-99 [facility] Comment on above: Result Comment: Cindy GAMBAO Performed By: #### 2 [id number] #### [facility] [address] [place] [address] Glucose [Mass/Vol] 345 mg/dL High 55-99 [facility] Comment on above: Performed By: #### 2 [id number] #### [facility] [address] [place] [address] Glucose [Mass/Vol] 466 mg/dL Abnormal 55-99 [facility] Comment on above: Performed By: #### 2 [id number] #### [facility] [address] [place] [address] [id number] 01-25-2025 HbA1c (Bld) [Mass fraction] 12.6 % High <=5.9 [facility] Comment on above: Performed By: #### 7 [id number] #### [facility] [address] [place] [address] Interdisciplinary Note - Giovany e Manageron 01-25-2025 Interdisciplinary Note - Griddle Attendant Interdisciplinary Note - Griddle Attendant SW spoke with patient in room. No family in room. Patient is alert and oriented and participates in discharge planning. Patient is from home lives with friend Sam. Dr. Ding is following, see notes, saw patient earlier today. Patient was admitted on 01/24/25 , dx with sepsis. Has a consult with Power Washer. 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 No family in room. Patient is alert and oriented and participates in discharge planning. Patient is from home lives with friend Sam. Dr. Ding is following, see notes, saw patient earlier today. Patient was admitted on 01/24/25 , dx with sepsis. Has a consult with Power Washer. Patient verified PCP, insurance and DME, [...] updated, and SW contact information provided. Normal [facility] Comment on above: Result Comment: Elec tronically Signed By: Yamileth Cali\.br\Date and Time Signed: 01/25/25 10:44 EDT PTon 01-25-2025 INR Coag (PPP) [Relative time] 1.00 {INR} Invalid Interpretation Code [facility] Comment on above: Result Comment: INR results are specifically intended to assess patients stabilized on long-term Anticoagulation therapy suggested INR???s ???Less Intensive Anticoagulation??? 2.0 ??? 3.0 Conventional Range 3.0 ??? 4.5 Performed By: #### 2 [id number] #### [facility] [address] [place] [address] PT 11.2 second(s) Normal 9.4-12.5 [facility] Comment on above: Result [...] the same coagulation reagent and instrumentation as [facility]. Currently there are no coagulation studies available worldwide for children to 14 days, and no normal ranges. Performed By: #### 2 [id number] #### [facility] [address] [place] [address] [facility] eGFR 67 mL/min/1.73 m2 Normal >=59 [facility] Comment on above: Performed By: #### 1 [id number] #### [facility] [address] [place] [address] [facility] Anion gap [Moles/Vol] 12 mmol/L Normal 6-16 [facility] Comment on above: Performed By: #### 2 948264 #### [facility] [address] [place] [address] BUN/Creat Ratio 41 No Units High 10-20 [facility] Comment on above: Performed By: #### 2 737808 #### [facility] [address] [place] [address] Calcium [Mass/Vol] 8.7 mg/dL Low 8.9-11.1 [facility] Comment on above: Performed By: #### 2 [id number] #### [facility] [address] [place] [address] Chloride [Moles/Vol] 95 mmol/L Low 101-111 [facility] Comment on above: Performed By: #### 2 [id number] #### [facility] [address] [place] [address] CO2 [Moles/Vol] 25 mmol/L Normal 21-31 [facility] Comment on above: Performed By: #### 2 [id number] #### [facility] [address] [place] [address] Creatinine [Mass/Vol] 1.4 mg/dL High 0.5-1.3 [facility] Comment on above: Performed By: #### 2 [id number] #### [facility] [address] [place] [address] Glucose [Mass/Vol] 431 mg/dL High 55-199 [facility] Comment on above: Performed By: #### 2 [id number] #### [facility] [address] [place] [address] Potassium [Moles/Vol] 3.8 mmol/L Normal 3.5-5.3 [facility] Comment on above: Performed By: #### 2 [id number] #### [facility] [address] [place] [address] Sodium [Moles/Vol] 128 mmol/L Low 135-145 [facility] Comment on above: Performed By: #### 2 [id number] #### [facility] [address] [place] [address] Urea nitrogen [Mass/Vol] 57 mg/dL High 5-21 [facility] Comment on above: Performed By: #### 2 [id number] #### [facility] [address] [place] [address] CBC w/ Auto Diffon 5 Basophil Absolute 0.1 E9/L Normal 0.0-0.2 [facility] Comment on above: Performed By: #### 2 [id number] #### [facility] [address] [place] [address] Basophils/100 WBC (Bld) 0.5 % Normal 0.0-2.0 [facility] Comment on above: Performed By: #### 2 [id number] #### [facility] [address] [place] [address] Eos Absolute 0.1 E9/L Normal 0.0-0.5 [facility] Comment on above: Performed By: #### 2 [id number] #### [facility] [address] [place] [address] Eosinophils/100 WBC (Bld) 0.5 % Normal 0.0-8.0 [facility] Comment on above: Performed By: #### 2 [id number] #### [facility] [address] [place] [address] Erythrocyte distribution width (RBC) [Ratio] 17.1 % High 10.9-14.2 [facility] Comment on above: Performed By: #### 2 [id number] #### [facility] [address] [place] [address] Hematocrit (Bld) [Volume fraction] 43.6 % Normal 37.7-49.0 [facility] Comment on above: Performed By: #### 2 [id number] #### [facility] [address] [place] [address] Hemoglobin (Bld) [Mass/Vol] 14.6 g/dL Normal 13.5-17.5 [facility] Comment on above: Performed By: #### 2 [id number] #### [facility] [address] [place] [address] Lymph Absolute 1.1 E9/L Normal 1.0-4.0 [facility] Comment on above: Performed By: #### 2 [id number] #### [facility] [address] [place] [address] Lymphocytes/100 WBC (Bld) 6.1 % Low 14.0-50.0 [facility] Comment on above: Performed By: #### 2 [id number] #### [facility] [address] [place] [address] MCH (RBC) [Entitic mass] 30.8 pg Normal 27.0-34.0 [facility] Comment on above: Performed By: #### 2 [id number] #### [facility] [address] [place] [address] MCHC (RBC) [Mass/Vol] 33.6 g/dL Normal 31.4-36.0 [facility] Comment on above: Performed By: #### 2 [id number] #### [facility] [address] [place] [address] MCV (RBC) [Entitic vol] 91.8 fL Normal 80.0-100.0 [facility] Comment on above: Performed By: #### 2 [id number] #### [facility] [address] [place] [address] Pierce Absolute 1.3 E9/L High 0.2-1.0 [facility] Comment on above: Performed By: #### 2 [id number] #### [facility] [address] [place] [address] Monocytes/100 WBC (Bld) 7.6 % Normal 4.0-14.0 [facility] Comment on above: Performed By: #### 2 [id number] #### [facility] [address] [place] [address] Neutro Absolute 14.8 E9/L High 2.0-7.5 [facility] Comment on above: Performed By: #### 2 [id number] #### [facility] [address] [place] [address] Neutro Auto 85.3 % High 36.0-75.0 [facility] Comment on above: Performed By: #### 2 [id number] #### [facility] [address] [place] [address] Platelet 269.0 E9/L Normal 150.0-500.0 [facility] Comment on above: Performed By: #### 2 [id number] #### [facility] [address] [place] [address] Platelet mean volume (Bld) [Entitic vol] 8.7 fL Normal 6.4-10.8 [facility] Comment on above: Performed By: #### 2 449643 #### [facility] [address] [place] [address] RBC 4.8 E12/L Normal 4.3-5.9 [facility] Comment on above: Performed By: #### 2 [id number] #### [facility] [address] [place] [address] WBC 17.4 E9/L High 4.0-11.0 [facility] Comment on above: Performed By: #### 2 [id number] #### [facility] [address] [place] [address] Capillary Glucose POCon Glucose [Mass/Vol] 490 mg/dL Abnormal 55-99 [facility] Comment on above: Result Comment: Cindy calle RN/ Performed By: #### 2 [id number] #### [facility] [address] [place] [address] ED Clinical Summaryon 2024 ED Clinical Summary ED Clinical Summary [address] [address] ED Clinical Summary Person Information Name: TYLER SMITH/[facility] Age: 64 Years : 1960 Sex: Male Language: Micronesian PCP: DARA EISENBERG CNP Marital Status: Single Phone: [phone] Visit Id: Visit Reason: Medical problem - major; VERICOSE VEIN TOURNIQUET Speciality: Acuity: 2 Enc Type: Inpatient Med Service: Medical Arrival: 01/24/2025 11:29:33 Discharge: LOS: 000 07:25 Checkin: 01/24/2025 11:29:33 Checkout: 01/24/2025 18:54:25 Dispo Type: Admitted as IP to this [facility] EVENTS: Event Name Event Status Request [...] 18:23:37 Patient Care Request 01/24/2025 18:23:37 ADDRESS: [address] [place] [address] PHYS DOC NOTES: MEDICAL INFORMATION: Prescriptions Given: New Medications [id number], [address] [place], [place] [id number], [phone] doxycycline (doxycycline hyclate 100 mg Cap) 1 Capsules By Mouth 2 times a day for 7 Days. Refills: 0. PATIENT EDUCATION INFORMATION: Instructions: Cellulitis, Adult, Bmtl-tl-Hkzw; Bleeding Varicose Veins Follow up: With: Address: When: DARA EISENBERG [address], [address] [place] [phone] Business (1) In 3 days 01/27/2025 Comments: Call Dr for diagnosis based follow up DIAGNOSIS: 1:Severe sepsis; 2:Cellulitis of leg; 3:KRISTINE (acute kidney injury); 4:Atrial fibrillation with RVR; 5: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; 6:Hyponatremia; 7:Noncompliance with medications Normal [facility] ED Note-Physicianon 01-25-20 ED Note-Physician ED [...] of the patient. Sepsis Data [x] Patient's [place] body weight was considered in sepsis fluid [...] other nonco (more content not included)... Normal [facility] Comment on above: Result Comment: Elec tronically Signed By: Puneet Jung PA-C\.br\Date and Time Signed: 01/24/25 13:02 EDT\.br\Electronically Co-Signed By: Puneet Jung PA-C\.br\Date and Time Co-Signed: 01/24/25 15:25 EDT\.br\Electronically Co-Signed By: Puneet Jung PA-C\.br\Date and Time Co-Signed: 01/24/25 16:27 EDT\.br\Electronically Co-Signed By: Manuel Fletcher M.D.\.br\Date and Time Co-Signed: 01/24/25 18:08 EDT ED Patient Summaryon 025 ED Patient Summary ED Patient Summary [place] [id number] Patient Discharge Instructions Person Information Name: TYLER SMITH Age: 64 Years Arrival Date: 01/24/2025 11:29:33 Discharge Diagnosis: 1:Severe sepsis; 2:Cellulitis of leg; 3:KRISTINE (acute kidney injury); 4:Atrial fibrillation with RVR; 5: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; 6:Hyponatremia; 7:Noncompliance with medications Primary Care Physician: DARA EISENBERG CNP Provider Information Primary Provider: Manuel Fletcher M.D. Advanced Bottle Label Inspector:Puneet Jung PA-C The exam and treatment you received in the Emergency Department were for an urgent problem and are not intended as complete care. It is important that you follow up with a doctor, nurse practitioner, or physician???s medical services assistant for ongoing care. If your symptoms [...] DARA FAINA [address], [place] [address] [phone] Business (1) In 3 days 01/27/2025 Comments: Call Dr for diagnosis based follow up In the event that this physician does not participate in your insurance network, please consult with your insurance company to find a nearby participating provider. Patient Education Materials: Cellulitis, Adult, Wcxt-zf-Yncg; Bleeding Varicose Veins A MESSAGE TO ALL PATIENTS REGARDING OPIOIDS PRESCRIPTION OPIOIDS: WHAT YOU NEED TO KNOW Prescription opioids can be used to help relieve ldcawezn-cy-qtbaty pain and are often prescribed following a [...] toilet, f (more content not included)... Normal [facility] Lactic Acidon 01-24-2025 Lactic Acid Lvl 1.0 mmol/L Normal 0.5-2.2 [facility] Comment on above: Performed By: #### 2 [id number] #### [facility] [address] [place] [address] PT & PTTon 01-24-2025 INR Coag (PPP) [Relative time] 1.03 {INR} Invalid Interpretation Code [facility] Comment on above: Result Comment: INR results are specifically intended to assess patients stabilized on long-term Anticoagulation therapy suggested INR???s ???Less Intensive Anticoagulation??? 2.0 ??? 3.0 Conventional Range 3.0 ??? 4.5 Performed By: #### 1 [id number] #### [facility] [address] [place] [address] PT 11.5 second(s) Normal 9.4-12.5 [facility] Comment on above: Result [...] the same coagulation reagent and instrumentation as [facility]. Currently there are no coagulation studies available worldwide for children to 14 days, and no normal ranges. Performed By: #### 1 [id number] #### [facility] [address] [place] [address] PTT 27.7 second(s) Normal 25.1-36.5 [facility] Comment on above: Result [...] the same coagulation reagent and instrumentation as [facility]. Currently there are no coagulation studies available worldwide for children to 14 days, and no normal ranges. Heparin therapeutic range (represented by Anti-Factor Xa activity of 0.2 - 0.4 U/mL) corresponds to PTT of 56.6 - 109.0 sec. Performed By: #### 1 [id number] #### [facility] [address] [place] [address] Pre-Arrival Noteon Pre-Arrival Note Pre-Arrival Note Pre-Arrival Summary Name: , Current Date: 01/24/2025 11:30:22 EDT Gender: Date of : Age: Pre-Arrival Type: EMS ETA: 01/24/2025 11:50:00 EDT Primary Care Physician: Presenting Problem: varicose vein tourniquet Pre-Arrival User: [address] Referring Source: Location: [place] Completion Date/Time: 01/24/2025 11:20:00 [facility] Emergency Department Pre-Hospital Report Form Vital Signs: Pre-Hospital Report: Treatment in Route: Response to Treatment: Misc. Issues: Normal [facility] Procalcitoninon 01-24-2025 Procalcitonin .09 ng/mL Normal .00-.50 [facility] Comment on above: Result Comment: <0.5 [...] to 24 hours. Performed By: #### 2 [id number] #### [facility] [address] [place] [address] Troponin 0 Hr.on 01-24-2025 Troponin HS 4.60 pg/mL Low 15.90-38.40 [facility] Comment on above: Result Comment: The 95% CI (Confidence Interval) PPV (Positive Predictive Value) for myocardial infarction in females is 38 pg/mL, in males 51 pg/mL. The results should be used in conjunction with clinical conditions of myocardial infarction. (Access High Sensitivity Troponin I Instructions For Use, Charli Yutan, February 2018) Performed By: #### 1 [id number] #### [facility] [address] [place] [address] UA with Cult Rflxon 01-25-20 25 Color (U) Light-Yellow Normal Yellow [facility] Comment on above: Result Comment: Micr oscopic readings are only performed on those samples that meet specific criteria set forth by [facility]. Performed By: #### 4 [id number] #### [facility] [address] [place] [address] Ketones Ql (U) Negative Normal Negative [facility] Comment on above: Performed By: #### 4 [id number] #### [facility] [address] [place] [address] UA Blood 1+ mg/dL Abnormal Negative [facility] Comment on above: Performed By: #### 4 [id number] #### [facility] [address] [place] [address] UA Clarity Clear Normal Clear [facility] Comment on above: Performed By: #### 4 [id number] #### [facility] [address] [place] [address] UA Glucose 4+ mg/dL Abnormal Negative [facility] Comment on above: Performed By: #### 4 [id number] #### [facility] [address] [place] [address] UA Leuk Est Negative Normal Negative [facility] Comment on above: Performed By: #### 4 [id number] #### [facility] [address] [place] [address] UA Mucous Trace Normal Negative [facility] Comment on above: Performed By: #### 4 [id number] #### [facility] [address] [place] [address] UA Nitrite Negative Normal Negative [facility] Comment on above: Performed By: #### 4 [id number] #### [facility] [address] [place] [address] UA pH 5.0 Invalid Interpretation Code 5.0-9.0 [facility] Comment on above: Performed By: #### 4 [id number] #### [facility] [address] [place] [address] UA Protein Negative Normal Negative [facility] Comment on above: Performed By: #### 4 [id number] #### [facility] [address] [place] [address] UA RBC 4-20 Abnormal 0-3 [facility] Comment on above: Performed By: #### 4 [id number] #### [facility] [address] [place] [address] UA Spec Grav 1.020 Invalid Interpretation Code 1.005-1.030 [facility] Comment on above: Performed By: #### 4 [id number] #### [facility] [address] [place] [address] UA Urobilinogen Negative Normal Negative [facility] Comment on above: Performed By: #### 4 [id number] #### [facility] [address] [place] [address] UA WBC 0-5 Normal 0-5 [facility] Comment on above: Performed By: #### 4 [id number] #### [facility] [address] [place] [address] Urobilinogen (U) [Mass/Vol] Negative Normal Negative [facility] Comment on above: Performed By: #### 4 [id number] #### [facility] [address] [place] [address] UA Spec Desc Clean Catch Normal [facility] Comment on above: Performed By: #### 4 [id number] #### [facility] [address] [place] [address] XR Chest 2 Viewson XR Chest 2 [...] MD Transcribed by: UMU Technologist: ROBERTO Ren [facility] eGFRon 01-24-2025 eGFR 55 mL/min/1.73 m2 Low >=59 [facility] Comment on above: Performed By: #### 1 [id number] #### [facility] [address] [place] [address] HbA1c HPLC (Bld) [Mass fract ion]on 11-05-2024 HbA1c (Bld) [Mass fraction] 10.1 % [facility] CBC WITH AUTO DIFFERENTIALon 09-09-2024 Basophils (Bld) [#/Vol] 0.05 10*3/uL Normal 0.00-0.20 [facility] Comment on above: Performed By: #### L [id number] ####[facility] ([facility])[address] [place] [address] Basophils/100 WBC (Bld) 0.6 % Normal 0.0-1.0 [facility] Comment on above: Performed By: #### L [id number] ####[facility] ([facility])[address] [place] [address] Eosinophils (Bld) [#/Vol] 0.43 10*3/uL Normal 0.00-0.50 [facility] Comment on above: Performed By: #### L [id number] ####[facility] ([facility])[address] [place] [address] Eosinophils/100 WBC (Bld) 5.0 % Normal 0.0-6.0 [facility] Comment on above: Performed By: #### L [id number] ####[facility] ([facility])[address] [place] [address] Erythrocyte distribution width (RBC) [Ratio] 15.1 % High 11.5-15.0 [facility] Comment on above: Performed By: #### L [id number] ####[facility] ([facility])[address] [place] [address] ERYTHROCYTE MEAN CORPUSCULAR HEMOGLOBIN CONCENTRATION (G/DL) BY AUTOMATED 31.1 g/dL Low 32.0-35.0 [facility] Comment on above: Performed By: #### L [id number] ####[facility] ([facility])[address] [place] [address] Hematocrit (Bld) [Volume fraction] 48.8 % Normal 39.0-55.0 [facility] Comment on above: Performed By: #### L [id number] ####[facility] ([facility])[address] [place] [address] Hemoglobin (Bld) [Mass/Vol] 15.2 g/dL Normal 13.0-17.0 [facility] Comment on above: Performed By: #### L [id number] ####[facility] ([facility])[address] [place] [address] Immature granulocytes (Bld) [#/Vol] 0.05 10*3/uL Normal 0.00-0.20 [facility] Comment on above: Performed By: #### L [id number] ####[facility] ([facility])[address] [place] [address] Immature granulocytes/100 WBC (Bld) 0.6 % Normal 0.0-1.0 [facility] Comment on above: Performed By: #### L [id number] ####[facility] ([facility])[address] [place] [address] Lymphocytes (Bld) [#/Vol] 1.59 10*3/uL Normal 1.20-4.00 [facility] Comment on above: Performed By: #### L [id number] ####[facility] ([facility])[address] [place] [address] Lymphocytes/100 WBC (Bld) 18.5 % Low 20.0-45.0 [facility] Comment on above: Performed By: #### L [id number] ####[facility] ([facility])[address] [place] [address] MCH (RBC) [Entitic mass] 28.8 pg Normal 27.0-33.0 [facility] Comment on above: Performed By: #### L [id number] ####[facility] ([facility])[address] [place] [address] MCV (RBC) [Entitic vol] 92.6 fL Normal 82.0-98.0 [facility] Comment on above: Performed By: #### L [id number] ####[facility] ([facility])[address] [place] [address] Monocytes (Bld) [#/Vol] 0.90 10*3/uL Normal 0.10-1.00 [facility] Comment on above: Performed By: #### L [id number] ####[facility] ([facility])[address] [place] [address] Monocytes/100 WBC (Bld) 10.5 % Normal 5.0-12.0 [facility] Comment on above: Performed By: #### L [id number] ####[facility] ([facility])[address] [place] [address] Neutrophils (Bld) [#/Vol] 5.56 10*3/uL Normal 1.60-7.60 [facility] Comment on above: Performed By: #### L [id number] ####[facility] ([facility])[address] [place] [address] Neutrophils/100 WBC (Bld) 64.8 % Normal 40.0-72.0 [facility] Comment on above: Performed By: #### L [id number] ####[facility] ([facility])[address] [place] [address] NRBC (PER 100 WBCS) BY AUTOMATED COUNT 0.0 % Normal 0 [facility] Comment on above: Performed By: #### L [id number] ####[facility] ([facility])[address] [place] [address] PLATELETS (10*3/UL) IN BLOOD AUTOMATED COUNT 208 10*3/uL Normal 150-400 [facility] Comment on above: Performed By: #### L [id number] ####[facility] ([facility])[address] [place] [address] RBC (Bld) [#/Vol] 5.27 10*6/uL Normal 4.20-5.70 [facility] Comment on above: Performed By: #### L [id number] ####[facility] ([facility])[address] [place] [address] WBC (Bld) [#/Vol] 8.58 10*3/uL Normal 4.00-10.60 [facility] Comment on above: Performed By: #### L [id number] ####[facility] ([facility])[address] [place] [address] DSon 09-09-2024 DS Normal [facility] MAGNESIUMon 09-09-2024 Magnesium [Mass/Vol] 1.7 mg/dL Low 1.9-2.7 [facility] Comment on above: Performed By: #### L [id number] ####[facility] ([facility])[address] [place] [address] PHOSPHORUSon 09-09-2024 Magnesium [Mass/Vol] 3.2 mg/dL Normal 2.5-5.0 [facility] Comment on above: Performed By: #### L [id number] ####[facility] ([facility])[address] [place] [address] POCT GLUCOSE METER UNSOLICIT ED RESULTSon 09-09-2024 Glucose [Mass/Vol] 114 mg/dL High 70-105 [facility] Comment on above: Order Comment: Waive d Testing in the ED is performed under the ED CLIA certificate #[id number]. Result Comment: ndub [id number] Performed By: #### L [id number] ####[facility] ([facility])[address] [place] [address] 30on 09-08-2024 30 Normal [facility] 30 Normal [facility] CBC WITH AUTO DIFFERENTIALon 09-08-2024 Basophils (Bld) [#/Vol] 0.06 10*3/uL Normal 0.00-0.20 [facility] Comment on above: Performed By: #### L [id number] ####[facility] ([facility])[address] [place] [address] Basophils/100 WBC (Bld) 0.8 % Normal 0.0-1.0 [facility] Comment on above: Performed By: #### L [id number] ####[facility] ([facility])[address] [place] [address] Eosinophils (Bld) [#/Vol] 0.43 10*3/uL Normal 0.00-0.50 [facility] Comment on above: Performed By: #### L [id number] ####[facility] ([facility])[address] [place] [address] Eosinophils/100 WBC (Bld) 5.5 % Normal 0.0-6.0 [facility] Comment on above: Performed By: #### L [id number] ####[facility] ([facility])[address] [place] [address] Erythrocyte distribution width (RBC) [Ratio] 15.2 % High 11.5-15.0 [facility] Comment on above: Performed By: #### L [id number] ####[facility] ([facility])[address] [place] [address] ERYTHROCYTE MEAN CORPUSCULAR HEMOGLOBIN CONCENTRATION (G/DL) BY AUTOMATED 30.8 g/dL Low 32.0-35.0 [facility] Comment on above: Performed By: #### L [id number] ####[facility] ([facility])[address] [place] [address] Hematocrit (Bld) [Volume fraction] 45.4 % Normal 39.0-55.0 [facility] Comment on above: Performed By: #### L [id number] ####[facility] ([facility])[address] [place] [address] Hemoglobin (Bld) [Mass/Vol] 14.0 g/dL Normal 13.0-17.0 [facility] Comment on above: Performed By: #### L [id number] ####[facility] ([facility])[address] [place] [address] Immature granulocytes (Bld) [#/Vol] 0.03 10*3/uL Normal 0.00-0.20 [facility] Comment on above: Performed By: #### L [id number] ####[facility] ([facility])[address] [place] [address] Immature granulocytes/100 WBC (Bld) 0.4 % Normal 0.0-1.0 [facility] Comment on above: Performed By: #### L [id number] ####[facility] ([facility])[address] [place] [address] Lymphocytes (Bld) [#/Vol] 1.82 10*3/uL Normal 1.20-4.00 [facility] Comment on above: Performed By: #### L [id number] ####[facility] ([facility])[address] [place] [address] Lymphocytes/100 WBC (Bld) 23.2 % Normal 20.0-45.0 [facility] Comment on above: Performed By: #### L [id number] ####[facility] ([facility])[address] [place] [address] MCH (RBC) [Entitic mass] 29.1 pg Normal 27.0-33.0 [facility] Comment on above: Performed By: #### L [id number] ####[facility] ([facility])[address] [place] [address] MCV (RBC) [Entitic vol] 94.4 fL Normal 82.0-98.0 [facility] Comment on above: Performed By: #### L [id number] ####[facility] ([facility])[address] [place] [address] Monocytes (Bld) [#/Vol] 0.88 10*3/uL Normal 0.10-1.00 [facility] Comment on above: Performed By: #### L [id number] ####[facility] ([facility])[address] [place] [address] Monocytes/100 WBC (Bld) 11.2 % Normal 5.0-12.0 [facility] Comment on above: Performed By: #### L [id number] ####[facility] ([facility])[address] [place] [address] Neutrophils (Bld) [#/Vol] 4.62 10*3/uL Normal 1.60-7.60 [facility] Comment on above: Performed By: #### L [id number] ####[facility] ([facility])[address] [place] [address] Neutrophils/100 WBC (Bld) 58.9 % Normal 40.0-72.0 [facility] Comment on above: Performed By: #### L [id number] ####[facility] ([facility])[address] [place] [address] NRBC (PER 100 WBCS) BY AUTOMATED COUNT 0.0 % Normal 0 [facility] Comment on above: Performed By: #### L [id number] ####[facility] ([facility])[address] [place] [address] PLATELETS (10*3/UL) IN BLOOD AUTOMATED COUNT 231 10*3/uL Normal 150-400 [facility] Comment on above: Performed By: #### L [id number] ####[facility] ([facility])[address] [place] [address] RBC (Bld) [#/Vol] 4.81 10*6/uL Normal 4.20-5.70 [facility] Comment on above: Performed By: #### L [id number] ####[facility] ([facility])[address] [place] [address] WBC (Bld) [#/Vol] 7.84 10*3/uL Normal 4.00-10.60 [facility] Comment on above: Performed By: #### L [id number] ####[facility] ([facility])[address] [place] [address] MAGNESIUMon 09-08-2024 Magnesium [Mass/Vol] 1.6 mg/dL Low 1.9-2.7 [facility] Comment on above: Performed By: #### L [id number] ####[facility] ([facility])[address] [place] [address] NURSNOTEon 09-08-2024 NURSNOTE Normal [facility] PHOSPHORUSon 09-08-2024 Magnesium [Mass/Vol] 3.4 mg/dL Normal 2.5-5.0 [facility] Comment on above: Performed By: #### L [id number] ####[facility] ([facility])[address] [place] [address] POCT GLUCOSE METER UNSOLICIT ED RESULTSon 09-08-2024 Glucose [Mass/Vol] 244 mg/dL High 70-105 [facility] Comment on above: Order Comment: Waive d Testing in the ED is performed under the ED CLIA certificate #[id number]. Result Comment: droc kol Performed By: #### L [id number] ####[facility] ([facility])[address] [place] [address] Glucose [Mass/Vol] 165 mg/dL High 70-105 [facility] Comment on above: Order Comment: Waive d Testing in the ED is performed under the ED CLIA certificate #[id number]. Result Comment: [email or web address] [email or web address] Performed By: #### L [id number] ####[facility] ([facility])[address] [place] [address] Glucose [Mass/Vol] 110 mg/dL High 70-105 [facility] Comment on above: Order Comment: Waive d Testing in the ED is performed under the ED CLIA certificate #[id number]. Result Comment: [email or web address] [email or web address] Performed By: #### L [id number] ####[facility] ([facility])[address] [place] [address] Glucose [Mass/Vol] 157 mg/dL High 70-105 [facility] Comment on above: Order Comment: Waive d Testing in the ED is performed under the ED CLIA certificate #[id number]. Result Comment: [email or web address] [email or web address] Performed By: #### L [id number] ####[facility] ([facility])[address] [place] [address] 30on 09-07-2024 30 Normal [facility] 30 Normal [facility] BASIC METABOLIC PANELon 08-21 Anion gap [Moles/Vol] 9 mmol/L Normal 7-20 [facility] Comment on above: Performed By: #### L [id number] ####[facility] ([facility])[address] [place] [address] Calcium [Mass/Vol] 9.6 mg/dL Normal 8.6-10.3 [facility] Comment on above: Performed By: #### L [id number] ####[facility] ([facility])[address] [place] [address] Chloride [Moles/Vol] 100 mmol/L Normal 98-107 [facility] Comment on above: Performed By: #### L [id number] ####[facility] ([facility])[address] [place] [address] CO2 [Moles/Vol] 32 mmol/L High 21-31 [facility] Comment on above: Performed By: #### L [id number] ####[facility] ([facility])[address] [place] [address] Creatinine [Mass/Vol] 0.78 mg/dL Normal 0.70-1.30 [facility] Comment on above: Performed By: #### L [id number] ####[facility] ([facility])[address] [place] [address] GLOMERULAR FILTRATION RATE ML/MIN/1.73 SQ M.PREDICTED 99.0 mL/min/1.73m*2 Normal >60.0 [facility] Comment on above: Result Comment: The [facility]???s estimated glomerular filtration rate (eGFR) will [...] of individuals. Performed By: #### L [id number] ####[facility] ([facility])[address] [place] [address] Glucose [Mass/Vol] 153 mg/dL High 70-100 [facility] Comment on above: Performed By: #### L [id number] ####[facility] ([facility])[address] [place] [address] Potassium [Moles/Vol] 4.1 mmol/L Normal 3.5-5.1 [facility] Comment on above: Performed By: #### L [id number] ####[facility] ([facility])[address] [place] [address] Sodium [Moles/Vol] 137 mmol/L Normal 136-145 [facility] Comment on above: Performed By: #### L [id number] ####[facility] ([facility])[address] [place] [address] Urea nitrogen [Mass/Vol] 19 mg/dL Normal 7-25 [facility] Comment on above: Performed By: #### L [id number] ####[facility] ([facility])[address] [place] [address] UREA NITROGEN/CREATININE (MASS RATIO) IN SER/PLAS 24.4 Normal [facility] Comment on above: Performed By: #### L [id number] ####[facility] ([facility])[address] [place] [address] CBC WITH AUTO DIFFERENTIALon 09-07-2024 Basophils (Bld) [#/Vol] 0.06 10*3/uL Normal 0.00-0.20 [facility] Comment on above: Performed By: #### L [id number] ####[facility] ([facility])[address] [place] [address] Basophils/100 WBC (Bld) 0.8 % Normal 0.0-1.0 [facility] Comment on above: Performed By: #### L [id number] ####[facility] ([facility])[address] [place] [address] Eosinophils (Bld) [#/Vol] 0.49 10*3/uL Normal 0.00-0.50 [facility] Comment on above: Performed By: #### L [id number] ####[facility] ([facility])[address] [place] [address] Eosinophils/100 WBC (Bld) 6.8 % High 0.0-6.0 [facility] Comment on above: Performed By: #### L [id number] ####[facility] ([facility])[address] [place] [address] Erythrocyte distribution width (RBC) [Ratio] 15.3 % High 11.5-15.0 [facility] Comment on above: Performed By: #### L [id number] ####[facility] ([facility])[address] [place] [address] ERYTHROCYTE MEAN CORPUSCULAR HEMOGLOBIN CONCENTRATION (G/DL) BY AUTOMATED 30.9 g/dL Low 32.0-35.0 [facility] Comment on above: Performed By: #### L [id number] ####[facility] ([facility])[address] [place] [address] Hematocrit (Bld) [Volume fraction] 45.9 % Normal 39.0-55.0 [facility] Comment on above: Performed By: #### L [id number] ####[facility] ([facility])[address] [place] [address] Hemoglobin (Bld) [Mass/Vol] 14.2 g/dL Normal 13.0-17.0 [facility] Comment on above: Performed By: #### L [id number] ####[facility] ([facility])[address] [place] [address] Immature granulocytes (Bld) [#/Vol] 0.04 10*3/uL Normal 0.00-0.20 [facility] Comment on above: Performed By: #### L [id number] ####[facility] ([facility])[address] [place] [address] Immature granulocytes/100 WBC (Bld) 0.6 % Normal 0.0-1.0 [facility] Comment on above: Performed By: #### L [id number] ####[facility] ([facility])[address] [place] [address] Lymphocytes (Bld) [#/Vol] 1.82 10*3/uL Normal 1.20-4.00 [facility] Comment on above: Performed By: #### L [id number] ####[facility] ([facility])[address] [place] [address] Lymphocytes/100 WBC (Bld) 25.3 % Normal 20.0-45.0 [facility] Comment on above: Performed By: #### L [id number] ####[facility] ([facility])[address] [place] [address] MCH (RBC) [Entitic mass] 29.2 pg Normal 27.0-33.0 [facility] Comment on above: Performed By: #### L [id number] ####[facility] ([facility])[address] [place] [address] MCV (RBC) [Entitic vol] 94.4 fL Normal 82.0-98.0 [facility] Comment on above: Performed By: #### L [id number] ####[facility] ([facility])[address] [place], [place] [address] Monocytes (Bld) [#/Vol] 0.74 10*3/uL Normal 0.10-1.00 [facility] Comment on above: Performed By: #### L [id number] ####[facility] ([facility])[address] [place], [place] [address] Monocytes/100 WBC (Bld) 10.3 % Normal 5.0-12.0 [facility] Comment on above: Performed By: #### L [id number] ####[facility] ([facility])[address] [place], [place] [address] Neutrophils (Bld) [#/Vol] 4.04 10*3/uL Normal 1.60-7.60 [facility] Comment on above: Performed By: #### L [id number] ####[facility] ([facility])[address] [place], [place] [address] Neutrophils/100 WBC (Bld) 56.2 % Normal 40.0-72.0 [facility] Comment on above: Performed By: #### L [id number] ####[facility] ([facility])[address] [place] [address] NRBC (PER 100 WBCS) BY AUTOMATED COUNT 0.0 % Normal 0 [facility] Comment on above: Performed By: #### L [id number] ####[facility] ([facility])[address] [place] [address] PLATELETS (10*3/UL) IN BLOOD AUTOMATED COUNT 234 10*3/uL Normal 150-400 [facility] Comment on above: Performed By: #### L [id number] ####[facility] ([facility])[address] [place] [address] RBC (Bld) [#/Vol] 4.86 10*6/uL Normal 4.20-5.70 [facility] Comment on above: Performed By: #### L [id number] ####[facility] ([facility])[address] [place] [address] WBC (Bld) [#/Vol] 7.19 10*3/uL Normal 4.00-10.60 [facility] Comment on above: Performed By: #### L [id number] ####[facility] ([facility])[address] [place] [address] MAGNESIUMon 09-07-2024 Magnesium [Mass/Vol] 1.7 mg/dL Low 1.9-2.7 [facility] Comment on above: Performed By: #### L [id number] ####[facility] ([facility])[address] [place] [address] NURSNOTEon 09-07-2024 NURSNOTE Signed off to Ian engel RN [facility] NURSNOTE HOB up @ 40 degrees, NO c/o of pain, or SOB at this time Urinal at bedside Call light within reach IV INT'd, intact, no redness noted Pulse ox--97% O 2 cont. On pt. Per nasal cannula @ 4 L/min NC Telemetry cont. On pt [facility] NURSNOTE [facility] NURSNOTE Tried to call Elias, pt's brother, no answer, still, at this time, 3rd attempt [facility] NURSNOTE [facility] NURSNOTE Pt's family brought him a hamburger last night, and the pt. Is eating it now. Pt. Encouraged not to eat, since the hamburger has been sitting out all night. Pt. Cont. To eat burger. [facility] NURSNOTE Eyes closed resp. Easy @ 18/min Pulse ox--98% Telemetry cont. On pt Normal [facility] Orders Onlyon 09-07-2024 Orders Only [id number] Tyler Smith 1960 M Date Provider Department Center 09/07/[id number]-HYKSANRO-SUBYZT, JENN*[facility] No family history on file Normal [facility] PHOSPHORUSon 09-07-2024 Magnesium [Mass/Vol] 3.5 mg/dL Normal 2.5-5.0 [facility] Comment on above: Performed By: #### L [id number] ####[facility] ([facility])[address] [place] [address] POCT GLUCOSE METER UNSOLICIT ED RESULTSon 09-07-2024 Glucose [Mass/Vol] 200 mg/dL High 70-105 [facility] Comment on above: Order Comment: Waive d Testing in the ED is performed under the ED CLIA certificate #[id number]. Result Comment: droc kol Performed By: #### L [id number] ####[facility] ([facility])[address] [place] [address] Glucose [Mass/Vol] 211 mg/dL High 70-105 [facility] Comment on above: Order Comment: Waive d Testing in the ED is performed under the ED CLIA certificate #[id number]. Result Comment: [email or web address] ff3 Performed By: #### L [id number] ####[facility] ([facility])[address] [place] [address] Glucose [Mass/Vol] 298 mg/dL High 70-105 [facility] Comment on above: Order Comment: Waive d Testing in the ED is performed under the ED CLIA certificate #[id number]. Result Comment: [email or web address] [email or web address] Performed By: #### L [id number] ####[facility] ([facility])[address] [place] [address] Glucose [Mass/Vol] 155 mg/dL High 70-105 [facility] Comment on above: Order Comment: Waive d Testing in the ED is performed under the ED CLIA certificate #[id number]. Result Comment: [email or web address] ff3 Performed By: #### L [id number] ####[facility] ([facility])[address] [place] [address] 30on 09-06-2024 30 Normal [facility] 30 Normal [facility] BASIC METABOLIC PANELon 08-21 Anion gap [Moles/Vol] 11 mmol/L Normal 7-20 [facility] Comment on above: Performed By: #### L [id number] ####[facility] ([facility])[address] [place] [address] Calcium [Mass/Vol] 9.8 mg/dL Normal 8.6-10.3 [facility] Comment on above: Performed By: #### L [id number] ####[facility] ([facility])[address] [place] [address] Chloride [Moles/Vol] 98 mmol/L Normal 98-107 [facility] Comment on above: Performed By: #### L [id number] ####[facility] ([facility])[address] [place] [address] CO2 [Moles/Vol] 31 mmol/L Normal 21-31 [facility] Comment on above: Performed By: #### L [id number] ####[facility] ([facility])[address] [place] [address] Creatinine [Mass/Vol] 0.90 mg/dL Normal 0.70-1.30 [facility] Comment on above: Performed By: #### L [id number] ####[facility] ([facility])[address] [place] [address] GLOMERULAR FILTRATION RATE ML/MIN/1.73 SQ M.PREDICTED 94.8 mL/min/1.73m*2 Normal >60.0 [facility] Comment on above: Result Comment: [facility]???s estimated glomerular filtration rate (eGFR) will [...] of individuals. Performed By: #### L [id number] ####[facility] ([facility])[address] [place] [address] Glucose [Mass/Vol] 244 mg/dL High 70-100 [facility] Comment on above: Performed By: #### L [id number] ####[facility] ([facility])[address] [place] [address] Potassium [Moles/Vol] 3.9 mmol/L Normal 3.5-5.1 [facility] Comment on above: Performed By: #### L [id number] ####[facility] ([facility])[address] [place] [address] Sodium [Moles/Vol] 136 mmol/L Normal 136-145 [facility] Comment on above: Performed By: #### L [id number] ####[facility] ([facility])[address] [facility] [place] [address] Urea nitrogen [Mass/Vol] 18 mg/dL Normal 7-25 [facility] Comment on above: Performed By: #### L [id number] ####[facility] ([facility])[address] [place] [address] UREA NITROGEN/CREATININE (MASS RATIO) IN SER/PLAS 20.0 Normal [facility] Comment on above: Performed By: #### L [id number] ####[facility] ([facility])[address] [facility] [place] [address] CBC WITH AUTO DIFFERENTIALon 09-06-2024 Basophils (Bld) [#/Vol] 0.07 10*3/uL Normal 0.00-0.20 [facility] Comment on above: Performed By: #### L [id number] ####[facility] ([facility])[address] [place] [address] Basophils/100 WBC (Bld) 1.0 % Normal 0.0-1.0 [facility] Comment on above: Performed By: #### L [id number] ####[facility] ([facility])[address] [place] [address] Eosinophils (Bld) [#/Vol] 0.40 10*3/uL Normal 0.00-0.50 [facility] Comment on above: Performed By: #### L [id number] ####[facility] ([facility])[address] [place] [address] Eosinophils/100 WBC (Bld) 5.9 % Normal 0.0-6.0 [facility] Comment on above: Performed By: #### L [id number] ####[facility] ([facility])[address] [place] [address] Erythrocyte distribution width (RBC) [Ratio] 15.2 % High 11.5-15.0 [facility] Comment on above: Performed By: #### L [id number] ####[facility] ([facility])[address] [place] [address] ERYTHROCYTE MEAN CORPUSCULAR HEMOGLOBIN CONCENTRATION (G/DL) BY AUTOMATED 30.7 g/dL Low 32.0-35.0 [facility] Comment on above: Performed By: #### L [id number] ####[facility] ([facility])[address] [place] [address] Hematocrit (Bld) [Volume fraction] 47.3 % Normal 39.0-55.0 [facility] Comment on above: Performed By: #### L [id number] ####[facility] ([facility])[address] [place] [address] Hemoglobin (Bld) [Mass/Vol] 14.5 g/dL Normal 13.0-17.0 [facility] Comment on above: Performed By: #### L [id number] ####[facility] ([facility])[address] [place] [address] Immature granulocytes (Bld) [#/Vol] 0.05 10*3/uL Normal 0.00-0.20 [facility] Comment on above: Performed By: #### L [id number] ####[facility] ([facility])[address] [place] [address] Immature granulocytes/100 WBC (Bld) 0.7 % Normal 0.0-1.0 [facility] Comment on above: Performed By: #### L [id number] ####[facility] ([facility])[address] [place] [address] Lymphocytes (Bld) [#/Vol] 1.52 10*3/uL Normal 1.20-4.00 [facility] Comment on above: Performed By: #### L [id number] ####[facility] ([facility])[address] [place] [address] Lymphocytes/100 WBC (Bld) 22.5 % Normal 20.0-45.0 [facility] Comment on above: Performed By: #### L [id number] ####[facility] ([facility])[address] [place] [address] MCH (RBC) [Entitic mass] 29.1 pg Normal 27.0-33.0 [facility] Comment on above: Performed By: #### L [id number] ####[facility] ([facility])[address] [place] [address] MCV (RBC) [Entitic vol] 95.0 fL Normal 82.0-98.0 [facility] Comment on above: Performed By: #### L [id number] ####[facility] ([facility])[address] [place] [address] Monocytes (Bld) [#/Vol] 0.74 10*3/uL Normal 0.10-1.00 [facility] Comment on above: Performed By: #### L [id number] ####[facility] ([facility])[address] [place] [address] Monocytes/100 WBC (Bld) 10.9 % Normal 5.0-12.0 [facility] Comment on above: Performed By: #### L [id number] ####[facility] ([facility] [place] [address] Neutrophils (Bld) [#/Vol] 3.98 10*3/uL Normal 1.60-7.60 [facility] Comment on above: Performed By: #### L [id number] ####[facility] ([facility])[address] [place] [address] Neutrophils/100 WBC (Bld) 59.0 % Normal 40.0-72.0 [facility] Comment on above: Performed By: #### L [id number] ####[facility] ([facility])[address] [place] [address] NRBC (PER 100 WBCS) BY AUTOMATED COUNT 0.0 % Normal 0 [facility] Comment on above: Performed By: #### L [id number] ####[facility] ([facility])[address] [place] [address] PLATELETS (10*3/UL) IN BLOOD AUTOMATED COUNT 251 10*3/uL Normal 150-400 [facility] Comment on above: Performed By: #### L [id number] ####[facility] ([facility])[address] [place] [address] RBC (Bld) [#/Vol] 4.98 10*6/uL Normal 4.20-5.70 [facility] Comment on above: Performed By: #### L [id number] ####[facility] ([facility])[address] [place] [address] WBC (Bld) [#/Vol] 6.76 10*3/uL Normal 4.00-10.60 [facility] Comment on above: Performed By: #### L [id number] ####[facility] ([facility])[address] [place] [address] MAGNESIUMon 09-06-2024 Magnesium [Mass/Vol] 1.6 mg/dL Low 1.9-2.7 [facility] Comment on above: Performed By: #### L [id number] ####[facility] ([facility])[address] [facility] [place] [address] NURSNOTEon 09-06-2024 NURSNOTE Signed off to Ian engel RN--with bedside rounding Pt. Cont. To sit up in a chair at bedside Call light within reach Normal [facility] NURSNOTE Normal [facility] NURSNOTE Pt refused to go yeni k to bed at this time Pt. Cont. To sit up in a chair at bedside No c/o of SOB or nausea at this time Resp. Easy @ 18/min [facility] PHOSPHORUSon 09-06-2024 Magnesium [Mass/Vol] 3.4 mg/dL Normal 2.5-5.0 [facility] Comment on above: Performed By: #### L [id number] ####[facility] ([facility])[address] [place] [address] POCT GLUCOSE METER UNSOLICIT ED RESULTSon 09-06-2024 Glucose [Mass/Vol] 255 mg/dL High 70-105 [facility] Comment on above: Order Comment: Waive d Testing in the ED is performed under the ED CLIA certificate #[id number]. Result Comment: [email or web address] Performed By: #### L [id number] ####[facility] ([facility])[address] [place] [address] Glucose [Mass/Vol] 208 mg/dL High 70-105 [facility] Comment on above: Order Comment: Waive d Testing in the ED is performed under the ED CLIA certificate #[id number]. Result Comment: [email or web address] [email or web address] Performed By: #### L [id number] ####[facility] ([facility])[address] [facility] [place] [address] Glucose [Mass/Vol] 173 mg/dL High 70-105 [facility] Comment on above: Order Comment: Waive d Testing in the ED is performed under the ED CLIA certificate #[id number]. Result Comment: [email or web address] [email or web address] Performed By: #### L [id number] ####[facility] ([facility])[address] [place] [address] Glucose [Mass/Vol] 210 mg/dL High 70-105 [facility] Comment on above: Order Comment: Waive d Testing in the ED is performed under the ED CLIA certificate #[id number]. Result Comment: [email or web address] Performed By: #### L [id number] ####[facility] ([facility])[address] [place] [address] BASIC METABOLIC PANELon 08-21 Anion gap [Moles/Vol] 8 mmol/L Normal 7-20 [facility] Comment on above: Performed By: #### L [id number] ####[facility] ([facility])[address] [place] [address] Calcium [Mass/Vol] 9.9 mg/dL Normal 8.6-10.3 [facility] Comment on above: Performed By: #### L [id number] ####[facility] (BEAKER)[address] [place] [address] Chloride [Moles/Vol] 98 mmol/L Normal 98-107 [facility] Comment on above: Performed By: #### L [id number] ####[facility] (BEAKER)[address] [place] [address] CO2 [Moles/Vol] 33 mmol/L High 21-31 [facility] Comment on above: Performed By: #### L [id number] ####[facility] (BEAKER)[address] [place] [address] Creatinine [Mass/Vol] 0.90 mg/dL Normal 0.70-1.30 [facility] Comment on above: Performed By: #### L [id number] ####[facility] (BEAKER)[address] [place] [address] GLOMERULAR FILTRATION RATE ML/MIN/1.73 SQ M.PREDICTED 94.8 mL/min/1.73m*2 Normal >60.0 [facility] Comment on above: Result Comment: The [facility]???s estimated glomerular filtration rate (eGFR) will [...] of individuals. Performed By: #### L [id number] ####[facility] ([facility])[address] [place] [address] Glucose [Mass/Vol] 142 mg/dL High 70-100 [facility] Comment on above: Performed By: #### L [id number] ####[facility] ([facility])[address] [place] [address] Potassium [Moles/Vol] 4.1 mmol/L Normal 3.5-5.1 [facility] Comment on above: Performed By: #### L [id number] ####[facility] ([facility])[address] [place] [address] Sodium [Moles/Vol] 135 mmol/L Low 136-145 [facility] Comment on above: Performed By: #### L [id number] ####[facility] ([facility])[address] [place] [address] Urea nitrogen [Mass/Vol] 19 mg/dL Normal 7-25 [facility] Comment on above: Performed By: #### L [id number] ####[facility] ([facility])[address] [place] [address] UREA NITROGEN/CREATININE (MASS RATIO) IN SER/PLAS 21.1 Normal [facility] Comment on above: Performed By: #### L [id number] ####[facility] ([facility])[address] [place] [address] CBC WITH AUTO DIFFERENTIALon 09-05-2024 Basophils (Bld) [#/Vol] 0.07 10*3/uL Normal 0.00-0.20 [facility] Comment on above: Performed By: #### L [id number] ####[facility] ([facility])[address] [place] [address] Basophils/100 WBC (Bld) 0.9 % Normal 0.0-1.0 [facility] Comment on above: Performed By: #### L [id number] ####[facility] ([facility])[address] [place] [address] Eosinophils (Bld) [#/Vol] 0.38 10*3/uL Normal 0.00-0.50 [facility] Comment on above: Performed By: #### L [id number] ####[facility] ([facility])[address] [place] [address] Eosinophils/100 WBC (Bld) 5.0 % Normal 0.0-6.0 [facility] Comment on above: Performed By: #### L [id number] ####[facility] ([facility])[address] [place] [address] Erythrocyte distribution width (RBC) [Ratio] 15.2 % High 11.5-15.0 [facility] Comment on above: Performed By: #### L [id number] ####[facility] ([facility])[address] [place] [address] ERYTHROCYTE MEAN CORPUSCULAR HEMOGLOBIN CONCENTRATION (G/DL) BY AUTOMATED 31.4 g/dL Low 32.0-35.0 [facility] Comment on above: Performed By: #### L [id number] ####[facility] ([facility])[address] [place] [address] Hematocrit (Bld) [Volume fraction] 47.1 % Normal 39.0-55.0 [facility] Comment on above: Performed By: #### L [id number] ####[facility] ([facility])[address] [place] [address] Hemoglobin (Bld) [Mass/Vol] 14.8 g/dL Normal 13.0-17.0 [facility] Comment on above: Performed By: #### L [id number] ####[facility] ([facility])[address] [place] [address] Immature granulocytes (Bld) [#/Vol] 0.06 10*3/uL Normal 0.00-0.20 [facility] Comment on above: Performed By: #### L [id number] ####[facility] ([facility] [place] [address] Immature granulocytes/100 WBC (Bld) 0.8 % Normal 0.0-1.0 [facility] Comment on above: Performed By: #### L [id number] ####[facility] ([facility])[address] [place] [address] Lymphocytes (Bld) [#/Vol] 1.99 10*3/uL Normal 1.20-4.00 [facility] Comment on above: Performed By: #### L [id number] ####[facility] ([facility])[address] [place] [address] Lymphocytes/100 WBC (Bld) 26.0 % Normal 20.0-45.0 [facility] Comment on above: Performed By: #### L [id number] ####[facility] ([facility])[address] [place] [address] MCH (RBC) [Entitic mass] 28.8 pg Normal 27.0-33.0 [facility] Comment on above: Performed By: #### L [id number] ####[facility] ([facility])[address] [place] [address] MCV (RBC) [Entitic vol] 91.6 fL Normal 82.0-98.0 [facility] Comment on above: Performed By: #### L [id number] ####[facility] ([facility])[address] [place] [address] Monocytes (Bld) [#/Vol] 0.77 10*3/uL Normal 0.10-1.00 [facility] Comment on above: Performed By: #### L [id number] ####[facility] ([facility])[address] [place] [address] Monocytes/100 WBC (Bld) 10.1 % Normal 5.0-12.0 [facility] Comment on above: Performed By: #### L [id number] ####[facility] ([facility])[address] [place] [address] Neutrophils (Bld) [#/Vol] 4.39 10*3/uL Normal 1.60-7.60 [facility] Comment on above: Performed By: #### L [id number] ####[facility] ([facility])[address] [place] [address] Neutrophils/100 WBC (Bld) 57.2 % Normal 40.0-72.0 [facility] Comment on above: Performed By: #### L [id number] ####[facility] ([facility])[address] [place] [address] NRBC (PER 100 WBCS) BY AUTOMATED COUNT 0.0 % Normal 0 [facility] Comment on above: Performed By: #### L [id number] ####[facility] ([facility])[address] [place] [address] PLATELETS (10*3/UL) IN BLOOD AUTOMATED COUNT 274 10*3/uL Normal 150-400 [facility] Comment on above: Performed By: #### L [id number] ####[facility] ([facility])[address] [place] [address] RBC (Bld) [#/Vol] 5.14 10*6/uL Normal 4.20-5.70 [facility] Comment on above: Performed By: #### L [id number] ####[facility] ([facility])[address] [place] [address] WBC (Bld) [#/Vol] 7.66 10*3/uL Normal 4.00-10.60 [facility] Comment on above: Performed By: #### L [id number] ####[facility] ([facility])[address] [place] [address] MAGNESIUMon 09-05-2024 Magnesium [Mass/Vol] 1.6 mg/dL Low 1.9-2.7 [facility] Comment on above: Performed By: #### L [id number] ####[facility] ([facility])[address] [place] [address] PHOSPHORUSon 09-05-2024 Magnesium [Mass/Vol] 2.8 mg/dL Normal 2.5-5.0 [facility] Comment on above: Performed By: #### L [id number] ####[facility] ([facility])[address] [place] [address] POCT GLUCOSE METER UNSOLICIT ED RESULTSon 09-05-2024 Glucose [Mass/Vol] 221 mg/dL High 70-105 [facility] Comment on above: Order Comment: Waive d Testing in the ED is performed under the ED CLIA certificate #[id number]. Result Comment: [email or web address] Performed By: #### L [id number] ####[facility] ([facility])[address] [place] [address] Glucose [Mass/Vol] 204 mg/dL High 70-105 [facility] Comment on above: Order Comment: Waive d Testing in the ED is performed under the ED CLIA certificate #[id number]. Result Comment: [email or web address] Performed By: #### L [id number] ####[facility] ([facility])[address] [place] [address] Glucose [Mass/Vol] 222 mg/dL High 70-105 [facility] Comment on above: Order Comment: Waive d Testing in the ED is performed under the ED CLIA certificate #[id number]. Result Comment: [email or web address] Performed By: #### L [id number] ####[facility] ([facility])[address] [place] [address] Glucose [Mass/Vol] 141 mg/dL High 70-105 [facility] Comment on above: Order Comment: Waive d Testing in the ED is performed under the ED CLIA certificate #[id number]. Result Comment: [email or web address] Performed By: #### L [id number] ####[facility] ([facility])[address] [place] [address] 30on 09-04-2024 30 Normal [facility] BASIC METABOLIC PANELon 08-21 Anion gap [Moles/Vol] 7 mmol/L Normal 7-20 [facility] Comment on above: Performed By: #### L [id number] ####[facility] ([facility])[address] [place] [address] Calcium [Mass/Vol] 9.6 mg/dL Normal 8.6-10.3 [facility] Comment on above: Performed By: #### L [id number] ####[facility] ([facility])[address] [place] [address] Chloride [Moles/Vol] 98 mmol/L Normal 98-107 [facility] Comment on above: Performed By: #### L [id number] ####[facility] ([facility])[address] [place] [address] CO2 [Moles/Vol] 35 mmol/L High 21-31 [facility] Comment on above: Performed By: #### L [id number] ####[facility] ([facility])[address] [place] [address] Creatinine [Mass/Vol] 0.88 mg/dL Normal 0.70-1.30 [facility] Comment on above: Performed By: #### L [id number] ####[facility] ([facility])[address] [place] [address] GLOMERULAR FILTRATION RATE ML/MIN/1.73 SQ M.PREDICTED 95.4 mL/min/1.73m*2 Normal >60.0 [facility] Comment on above: Result Comment: [facility]???s estimated glomerular filtration rate (eGFR) will [...] of individuals. Performed By: #### L [id number] ####[facility] ([facility])[address] [place] [address] Glucose [Mass/Vol] 155 mg/dL High 70-100 [facility] Comment on above: Performed By: #### L [id number] ####[facility] ([facility])[address] [place] [address] Potassium [Moles/Vol] 4.3 mmol/L Normal 3.5-5.1 [facility] Comment on above: Performed By: #### L [id number] ####[facility] ([facility])[address] [address] Sodium [Moles/Vol] 136 mmol/L Normal 136-145 [facility] Comment on above: Performed By: #### L [id number] ####[facility] ([facility])[address] [place] [address] Urea nitrogen [Mass/Vol] 22 mg/dL Normal 7-25 [facility] Comment on above: Performed By: #### L [id number] ####[facility] ([facility])[address] [place] [address] UREA NITROGEN/CREATININE (MASS RATIO) IN SER/PLAS 25.0 Normal [facility] Comment on above: Performed By: #### L [id number] ####[facility] ([facility])[address] [address] CBC WITH AUTO DIFFERENTIALon 09-04-2024 Basophils (Bld) [#/Vol] 0.06 10*3/uL Normal 0.00-0.20 [facility] Comment on above: Performed By: #### L [id number] ####[facility] ([facility])[address] [place] [address] Basophils/100 WBC (Bld) 1.0 % Normal 0.0-1.0 [facility] Comment on above: Performed By: #### L [id number] ####[facility] ([facility])[address] [place] [address] Eosinophils (Bld) [#/Vol] 0.38 10*3/uL Normal 0.00-0.50 [facility] Comment on above: Performed By: #### L [id number] ####[facility] ([facility])[address] [place], [place] [address] Eosinophils/100 WBC (Bld) 6.1 % High 0.0-6.0 [facility] Comment on above: Performed By: #### L [id number] ####[facility] ([facility])[address] [place] [address] Erythrocyte distribution width (RBC) [Ratio] 15.2 % High 11.5-15.0 [facility] Comment on above: Performed By: #### L [id number] ####[facility] ([facility])[address] [place] [address] ERYTHROCYTE MEAN CORPUSCULAR HEMOGLOBIN CONCENTRATION (G/DL) BY AUTOMATED 30.6 g/dL Low 32.0-35.0 [facility] Comment on above: Performed By: #### L [id number] ####[facility] ([facility])[address] [place] [address] Hematocrit (Bld) [Volume fraction] 48.4 % Normal 39.0-55.0 [facility] Comment on above: Performed By: #### L [id number] ####[facility] ([facility])[address] [place] [address] Hemoglobin (Bld) [Mass/Vol] 14.8 g/dL Normal 13.0-17.0 [facility] Comment on above: Performed By: #### L [id number] ####[facility] ([facility])[address] [place] [address] Immature granulocytes (Bld) [#/Vol] 0.04 10*3/uL Normal 0.00-0.20 [facility] Comment on above: Performed By: #### L [id number] ####[facility] ([facility])[address] [place] [address] Immature granulocytes/100 WBC (Bld) 0.6 % Normal 0.0-1.0 [facility] Comment on above: Performed By: #### L [id number] ####[facility] ([facility])[address] [place] [address] Lymphocytes (Bld) [#/Vol] 1.68 10*3/uL Normal 1.20-4.00 [facility] Comment on above: Performed By: #### L [id number] ####[facility] ([facility])[address] [place] [address] Lymphocytes/100 WBC (Bld) 27.1 % Normal 20.0-45.0 [facility] Comment on above: Performed By: #### L [id number] ####[facility] ([facility])[address] [place] [address] MCH (RBC) [Entitic mass] 28.6 pg Normal 27.0-33.0 [facility] Comment on above: Performed By: #### L [id number] ####[facility] ([facility])[address] [place] [address] MCV (RBC) [Entitic vol] 93.6 fL Normal 82.0-98.0 [facility] Comment on above: Performed By: #### L [id number] ####[facility] ([facility])[address] [place] [address] Monocytes (Bld) [#/Vol] 0.74 10*3/uL Normal 0.10-1.00 [facility] Comment on above: Performed By: #### L [id number] ####[facility] ([facility])[address] [place] [address] Monocytes/100 WBC (Bld) 11.9 % Normal 5.0-12.0 [facility] Comment on above: Performed By: #### L [id number] ####[facility] ([facility])[address] [place] [address] Neutrophils (Bld) [#/Vol] 3.31 10*3/uL Normal 1.60-7.60 [facility] Comment on above: Performed By: #### L [id number] ####[facility] ([facility])[address] [place] [address] Neutrophils/100 WBC (Bld) 53.3 % Normal 40.0-72.0 [facility] Comment on above: Performed By: #### L [id number] ####[facility] ([facility])[address] [place] [address] NRBC (PER 100 WBCS) BY AUTOMATED COUNT 0.0 % Normal 0 [facility] Comment on above: Performed By: #### L [id number] ####[facility] ([facility])[address] [place] [address] PLATELETS (10*3/UL) IN BLOOD AUTOMATED COUNT 254 10*3/uL Normal 150-400 [facility] Comment on above: Performed By: #### L [id number] ####[facility] ([facility])[address] [place] [address] RBC (Bld) [#/Vol] 5.17 10*6/uL Normal 4.20-5.70 [facility] Comment on above: Performed By: #### L [id number] ####[facility] ([facility])[address] [place] [address] WBC (Bld) [#/Vol] 6.21 10*3/uL Normal 4.00-10.60 [facility] Comment on above: Performed By: #### L [id number] ####[facility] ([facility])[address] [place] [address] POCT GLUCOSE METER UNSOLICIT ED RESULTSon 09-04-2024 Glucose [Mass/Vol] 219 mg/dL High 70-105 [facility] Comment on above: Order Comment: Waive d Testing in the ED is performed under the ED CLIA certificate #[id number]. Result Comment: [email or web address] Performed By: #### L [id number] ####[facility] ([facility])[address] [place] [address] Glucose [Mass/Vol] 156 mg/dL High 70-105 [facility] Comment on above: Order Comment: Waive d Testing in the ED is performed under the ED CLIA certificate #[id number]. Result Comment: [email or web address] Performed By: #### L [id number] ####[facility] ([facility])[address] [place] [address] Glucose [Mass/Vol] 190 mg/dL High 70-105 [facility] Comment on above: Order Comment: Waive d Testing in the ED is performed under the ED CLIA certificate #[id number]. Result Comment: [email or web address] Performed By: #### L [id number] ####[facility] ([facility])[address] [place] [address] Glucose [Mass/Vol] 149 mg/dL High 70-105 [facility] Comment on above: Order Comment: Waive d Testing in the ED is performed under the ED CLIA certificate #[id number]. Result Comment: [email or web address] Performed By: #### L [id number] ####[facility] ([facility])[address] [place] [address] 30on 09-03-2024 30 Normal [facility] BASIC METABOLIC PANELon 08-21 Anion gap [Moles/Vol] 11 mmol/L Normal 7-20 [facility] Comment on above: Performed By: #### L [id number] ####[facility] ([facility])[address] [place] [address] Calcium [Mass/Vol] 9.7 mg/dL Normal 8.6-10.3 [facility] Comment on above: Performed By: #### L [id number] ####[facility] ([facility])[address] [place] [address] Chloride [Moles/Vol] 96 mmol/L Low 98-107 [facility] Comment on above: Performed By: #### L [id number] ####[facility] ([facility])[address] [place] [address] CO2 [Moles/Vol] 33 mmol/L High 21-31 [facility] Comment on above: Performed By: #### L [id number] ####[facility] ([facility])[address] [place] [address] Creatinine [Mass/Vol] 0.87 mg/dL Normal 0.70-1.30 [facility] Comment on above: Performed By: #### L [id number] ####[facility] ([facility])[address] [place] [address] GLOMERULAR FILTRATION RATE ML/MIN/1.73 SQ M.PREDICTED 95.8 mL/min/1.73m*2 Normal >60.0 [facility] Comment on above: Result Comment: [facility]???s estimated glomerular filtration rate (eGFR) will [...] of individuals. Performed By: #### L [id number] ####[facility] ([facility])[address] [place] [address] Glucose [Mass/Vol] 161 mg/dL High 70-100 [facility] Comment on above: Performed By: #### L [id number] ####[facility] ([facility])[address] [place] [address] Potassium [Moles/Vol] 4.2 mmol/L Normal 3.5-5.1 [facility] Comment on above: Performed By: #### L [id number] ####[facility] ([facility])[address] [place] [address] Sodium [Moles/Vol] 136 mmol/L Normal 136-145 [facility] Comment on above: Performed By: #### L [id number] ####[facility] ([facility])[address] [place] [address] Urea nitrogen [Mass/Vol] 23 mg/dL Normal 7-25 [facility] Comment on above: Performed By: #### L [id number] ####[facility] ([facility])[address] [place] [address] UREA NITROGEN/CREATININE (MASS RATIO) IN SER/PLAS 26.4 Normal [facility] Comment on above: Performed By: #### L [id number] ####[facility] ([facility])[address] [place] [address] CBC WITH AUTO DIFFERENTIALon 09-03-2024 Basophils (Bld) [#/Vol] 0.07 10*3/uL Normal 0.00-0.20 [facility] Comment on above: Performed By: #### L [id number] ####[facility] ([facility])[address] [place] [address] Basophils/100 WBC (Bld) 0.8 % Normal 0.0-1.0 [facility] Comment on above: Performed By: #### L [id number] ####[facility] ([facility])[address] [place] [address] Eosinophils (Bld) [#/Vol] 0.40 10*3/uL Normal 0.00-0.50 [facility] Comment on above: Performed By: #### L [id number] ####[facility] ([facility])[address] [place] [address] Eosinophils/100 WBC (Bld) 4.8 % Normal 0.0-6.0 [facility] Comment on above: Performed By: #### L [id number] ####[facility] ([facility])[address] [place] [address] Erythrocyte distribution width (RBC) [Ratio] 15.3 % High 11.5-15.0 [facility] Comment on above: Performed By: #### L [id number] ####[facility] ([facility])[address] [place] [address] ERYTHROCYTE MEAN CORPUSCULAR HEMOGLOBIN CONCENTRATION (G/DL) BY AUTOMATED 31.8 g/dL Low 32.0-35.0 [facility] Comment on above: Performed By: #### L [id number] ####[facility] ([facility])[address] [place] [address] Hematocrit (Bld) [Volume fraction] 46.8 % Normal 39.0-55.0 [facility] Comment on above: Performed By: #### L [id number] ####[facility] ([facility])[address] [place] [address] Hemoglobin (Bld) [Mass/Vol] 14.9 g/dL Normal 13.0-17.0 [facility] Comment on above: Performed By: #### L [id number] ####[facility] ([facility])[address] [place] [address] Immature granulocytes (Bld) [#/Vol] 0.05 10*3/uL Normal 0.00-0.20 [facility] Comment on above: Performed By: #### L [id number] ####[facility] ([facility])[address] [place] [address] Immature granulocytes/100 WBC (Bld) 0.6 % Normal 0.0-1.0 [facility] Comment on above: Performed By: #### L [id number] ####[facility] ([facility])[address] [place] [address] Lymphocytes (Bld) [#/Vol] 1.73 10*3/uL Normal 1.20-4.00 [facility] Comment on above: Performed By: #### L [id number] ####[facility] ([facility])[address] [place] [address] Lymphocytes/100 WBC (Bld) 20.9 % Normal 20.0-45.0 [facility] Comment on above: Performed By: #### L [id number] ####[facility] ([facility])[address] [place] [address] MCH (RBC) [Entitic mass] 29.3 pg Normal 27.0-33.0 [facility] Comment on above: Performed By: #### L [id number] ####[facility] ([facility])[address] [place] [address] MCV (RBC) [Entitic vol] 91.9 fL Normal 82.0-98.0 [facility] Comment on above: Performed By: #### L [id number] ####[facility] ([facility])[address] [place] [address] Monocytes (Bld) [#/Vol] 0.96 10*3/uL Normal 0.10-1.00 [facility] Comment on above: Performed By: #### L [id number] ####[facility] ([facility])[address] [place] [address] Monocytes/100 WBC (Bld) 11.6 % Normal 5.0-12.0 [facility] Comment on above: Performed By: #### L [id number] ####[facility] ([facility])[address] [place] [address] Neutrophils (Bld) [#/Vol] 5.06 10*3/uL Normal 1.60-7.60 [facility] Comment on above: Performed By: #### L [id number] ####[facility] ([facility])[address] [place] [address] Neutrophils/100 WBC (Bld) 61.3 % Normal 40.0-72.0 [facility] Comment on above: Performed By: #### L [id number] ####[facility] ([facility])[address] [place] [address] NRBC (PER 100 WBCS) BY AUTOMATED COUNT 0.0 % Normal 0 [facility] Comment on above: Performed By: #### L [id number] ####[facility] ([facility])[address] [place] [address] PLATELETS (10*3/UL) IN BLOOD AUTOMATED COUNT 264 10*3/uL Normal 150-400 [facility] Comment on above: Performed By: #### L [id number] ####[facility] ([facility])[address] [place] [address] RBC (Bld) [#/Vol] 5.09 10*6/uL Normal 4.20-5.70 [facility] Comment on above: Performed By: #### L [id number] ####[facility] ([facility])[address] [place] [address] WBC (Bld) [#/Vol] 8.27 10*3/uL Normal 4.00-10.60 [facility] Comment on above: Performed By: #### L [id number] ####[facility] ([facility])[address] [place] [address] MAGNESIUMon 09-03-2024 Magnesium [Mass/Vol] 1.6 mg/dL Low 1.9-2.7 [facility] Comment on above: Performed By: #### L [id number] ####[facility] ([facility])[address] [address] PHOSPHORUSon 09-03-2024 Magnesium [Mass/Vol] 3.3 mg/dL Normal 2.5-5.0 [facility] Comment on above: Performed By: #### L [id number] ####[facility] ([facility] HOSP[facility])[address] [place] [address] POCT GLUCOSE METER UNSOLICIT ED RESULTSon 09-03-2024 Glucose [Mass/Vol] 168 mg/dL High 70-105 [facility] Comment on above: Order Comment: Waive d Testing in the ED is performed under the ED CLIA certificate #[id number]. Result Comment: [email or web address] Performed By: #### L [id number] ####[facility] ([employer])[address] [place] [address] Glucose [Mass/Vol] 184 mg/dL High 70-105 [facility] Comment on above: Order Comment: Waive d Testing in the ED is performed under the ED CLIA certificate #[id number]. Result Comment: [email or web address] [email or web address] Performed By: #### L [id number] ####[facility] ([facility])[address] [place] [address] Glucose [Mass/Vol] 205 mg/dL High 70-105 [facility] Comment on above: Order Comment: Waive d Testing in the ED is performed under the ED CLIA certificate #[id number]. Result Comment: mhil [email or web address] Performed By: #### L [id number] ####[facility] ([facility])[address] [place] [address] Glucose [Mass/Vol] 145 mg/dL High 70-105 [facility] Comment on above: Order Comment: Waive d Testing in the ED is performed under the ED CLIA certificate #[id number]. Result Comment: [email or web address] [email or web address] Performed By: #### L [id number] ####[facility] ([facility])[address] [place] [address] 30on 09-02-2024 30 Normal [facility] BASIC METABOLIC PANELon 08-21 Anion gap [Moles/Vol] 8 mmol/L Normal 7-20 [facility] Comment on above: Performed By: #### L [id number] ####[facility] ([facility])[address] [place] [address] Calcium [Mass/Vol] 9.5 mg/dL Normal 8.6-10.3 [facility] Comment on above: Performed By: #### L [id number] ####[facility] ([facility])[address] [place] [address] Chloride [Moles/Vol] 99 mmol/L Normal 98-107 [facility] Comment on above: Performed By: #### L [id number] ####[facility] ([facility])[address] [place] [address] CO2 [Moles/Vol] 37 mmol/L High 21-31 [facility] Comment on above: Performed By: #### L [id number] ####[facility] ([facility])[address] [place] [address] Creatinine [Mass/Vol] 0.77 mg/dL Normal 0.70-1.30 [facility] Comment on above: Performed By: #### L [id number] ####[facility] ([facility])[address] [place] [address] GLOMERULAR FILTRATION RATE ML/MIN/1.73 SQ M.PREDICTED 99.4 mL/min/1.73m*2 Normal >60.0 [facility] Comment on above: Result Comment: The [facility]???s estimated glomerular filtration rate (eGFR) will [...] of individuals. Performed By: #### L [id number] ####[facility] ([facility])[address] [place] [address] Glucose [Mass/Vol] 160 mg/dL High 70-100 [facility] Comment on above: Performed By: #### L [id number] ####[facility] ([facility])[address] [place] [address] Potassium [Moles/Vol] 4.1 mmol/L Normal 3.5-5.1 [facility] Comment on above: Performed By: #### L [id number] ####[facility] ([facility])[address] [place] [address] Sodium [Moles/Vol] 140 mmol/L Normal 136-145 [facility] Comment on above: Performed By: #### L [id number] ####[facility] ([facility])[address] [place] [address] Urea nitrogen [Mass/Vol] 16 mg/dL Normal 7-25 [facility] Comment on above: Performed By: #### L [id number] ####[facility] ([facility])[address] [place] [address] UREA NITROGEN/CREATININE (MASS RATIO) IN SER/PLAS 20.8 Normal [facility] Comment on above: Performed By: #### L [id number] ####[facility] ([facility])[address] [place] [address] CBC WITH AUTO DIFFERENTIALon 09-02-2024 Basophils (Bld) [#/Vol] 0.07 10*3/uL Normal 0.00-0.20 [facility] Comment on above: Performed By: #### L [id number] ####[facility] ([facility])[address] [place] [address] Basophils/100 WBC (Bld) 1.0 % Normal 0.0-1.0 [facility] Comment on above: Performed By: #### L [id number] ####[facility] ([facility])[address] [place] [address] Eosinophils (Bld) [#/Vol] 0.34 10*3/uL Normal 0.00-0.50 [facility] Comment on above: Performed By: #### L [id number] ####[facility] ([facility])[address] [place] [address] Eosinophils/100 WBC (Bld) 5.0 % Normal 0.0-6.0 [facility] Comment on above: Performed By: #### L [id number] ####[facility] ([facility])[address] [place] [address] Erythrocyte distribution width (RBC) [Ratio] 15.1 % High 11.5-15.0 [facility] Comment on above: Performed By: #### L [id number] ####[facility] ([facility])[address] [place] [address] ERYTHROCYTE MEAN CORPUSCULAR HEMOGLOBIN CONCENTRATION (G/DL) BY AUTOMATED 31.0 g/dL Low 32.0-35.0 [facility] Comment on above: Performed By: #### L [id number] ####[facility] ([facility])[address] [place] [address] Hematocrit (Bld) [Volume fraction] 46.2 % Normal 39.0-55.0 [facility] Comment on above: Performed By: #### L [id number] ####[facility] ([facility])[address] [place] [address] Hemoglobin (Bld) [Mass/Vol] 14.3 g/dL Normal 13.0-17.0 [facility] Comment on above: Performed By: #### L [id number] ####[facility] ([facility])[address] [place] [address] Immature granulocytes (Bld) [#/Vol] 0.04 10*3/uL Normal 0.00-0.20 [facility] Comment on above: Performed By: #### L [id number] ####[facility] ([facility])[address] [place] [address] Immature granulocytes/100 WBC (Bld) 0.6 % Normal 0.0-1.0 [facility] Comment on above: Performed By: #### L [id number] ####[facility] ([facility])[address] [place] [address] Lymphocytes (Bld) [#/Vol] 1.60 10*3/uL Normal 1.20-4.00 [facility] Comment on above: Performed By: #### L [id number] ####[facility] ([facility])[address] [place] [address] Lymphocytes/100 WBC (Bld) 23.7 % Normal 20.0-45.0 [facility] Comment on above: Performed By: #### L [id number] ####[facility] ([facility])[address] [place] [address] MCH (RBC) [Entitic mass] 28.8 pg Normal 27.0-33.0 [facility] Comment on above: Performed By: #### L [id number] ####[facility] ([facility])[address] [place] [address] MCV (RBC) [Entitic vol] 93.1 fL Normal 82.0-98.0 [facility] Comment on above: Performed By: #### L [id number] ####[facility] ([facility])[address] [place] [address] Monocytes (Bld) [#/Vol] 0.86 10*3/uL Normal 0.10-1.00 [facility] Comment on above: Performed By: #### L [id number] ####[facility] ([facility])[address] [place] [address] Monocytes/100 WBC (Bld) 12.8 % High 5.0-12.0 [facility] Comment on above: Performed By: #### L [id number] ####[facility] ([facility])[address] [place], [place] [address] Neutrophils (Bld) [#/Vol] 3.83 10*3/uL Normal 1.60-7.60 [facility] Comment on above: Performed By: #### L [id number] ####[facility] ([facility])[address] [place] [address] Neutrophils/100 WBC (Bld) 56.9 % Normal 40.0-72.0 [facility] Comment on above: Performed By: #### L [id number] ####[facility] ([facility])[address] [place] [address] NRBC (PER 100 WBCS) BY AUTOMATED COUNT 0.0 % Normal 0 [facility] Comment on above: Performed By: #### L [id number] ####[facility] ([facility])[address] [place] [address] PLATELETS (10*3/UL) IN BLOOD AUTOMATED COUNT 264 10*3/uL Normal 150-400 [facility] Comment on above: Performed By: #### L [id number] ####[facility] ([facility])[address] [place] [address] RBC (Bld) [#/Vol] 4.96 10*6/uL Normal 4.20-5.70 [facility] Comment on above: Performed By: #### L [id number] ####[facility] ([facility])[address] [place] [address] WBC (Bld) [#/Vol] 6.74 10*3/uL Normal 4.00-10.60 [facility] Comment on above: Performed By: #### L [id number] ####[facility] ([facility])[address] [place] [address] NURSNOTEon 09-02-2024 NURSNOTE Normal [facility] NURSNOTE Normal [facility] PHOSPHORUSon 09-02-2024 Magnesium [Mass/Vol] 3.1 mg/dL Normal 2.5-5.0 [facility] Comment on above: Performed By: #### L [id number] ####[facility] ([facility])[address] [place] [address] POCT GLUCOSE METER UNSOLICIT ED RESULTSon 09-02-2024 Glucose [Mass/Vol] 289 mg/dL High 70-105 [facility] Comment on above: Order Comment: Waive d Testing in the ED is performed under the ED CLIA certificate #[id number]. Result Comment: [email or web address] Performed By: #### L [id number] ####[facility] ([facility])[address] [place] [address] Glucose [Mass/Vol] 260 mg/dL High 70-105 [facility] Comment on above: Order Comment: Waive d Testing in the ED is performed under the ED CLIA certificate #[id number]. Result Comment: [email or web address] Performed By: #### L [id number] ####[facility] ([facility])[address] [place] [address] Glucose [Mass/Vol] 204 mg/dL High 70-105 [facility] Comment on above: Order Comment: Waive d Testing in the ED is performed under the ED CLIA certificate #[id number]. Result Comment: [email or web address] Performed By: #### L [id number] ####[facility] ([facility])[address] [place] [address] Glucose [Mass/Vol] 166 mg/dL High 70-105 [facility] Comment on above: Order Comment: Waive d Testing in the ED is performed under the ED CLIA certificate #[id number]. Result Comment: sbel cad Performed By: #### L [id number] ####[facility] ([facility])[address] [place] [address] 30on 09-01-2024 30 Normal [facility] BASIC METABOLIC PANELon 08-21 Anion gap [Moles/Vol] 7 mmol/L Normal 7-20 [facility] Comment on above: Performed By: #### L [id number] ####[facility] ([facility])[address] [place] [address] Calcium [Mass/Vol] 9.1 mg/dL Normal 8.6-10.3 [facility] Comment on above: Performed By: #### L [id number] ####[facility] ([facility])[address] [place] [address] Chloride [Moles/Vol] 98 mmol/L Normal 98-107 [facility] Comment on above: Performed By: #### L [id number] ####[facility] ([facility])[address] [place] [address] CO2 [Moles/Vol] 36 mmol/L High 21-31 [facility] Comment on above: Performed By: #### L [id number] ####[facility] ([facility])[address] [place] [address] Creatinine [Mass/Vol] 0.84 mg/dL Normal 0.70-1.30 [facility] Comment on above: Performed By: #### L [id number] ####[facility] ([facility])[address] [place] [address] GLOMERULAR FILTRATION RATE ML/MIN/1.73 SQ M.PREDICTED 96.8 mL/min/1.73m*2 Normal >60.0 [facility] Comment on above: Result Comment: The [facility]???s estimated glomerular filtration rate (eGFR) will [...] of individuals. Performed By: #### L [id number] ####[facility] ([facility])[address] [place] [address] Glucose [Mass/Vol] 190 mg/dL High 70-100 [facility] Comment on above: Performed By: #### L [id number] ####[facility] ([facility])[address] [place] [address] Potassium [Moles/Vol] 4.1 mmol/L Normal 3.5-5.1 [facility] Comment on above: Performed By: #### L [id number] ####[facility] ([facility])[address] [place] [address] Sodium [Moles/Vol] 137 mmol/L Normal 136-145 [facility] Comment on above: Performed By: #### L [id number] ####[facility] ([facility])[address] [place] [address] Urea nitrogen [Mass/Vol] 18 mg/dL Normal 7-25 [facility] Comment on above: Performed By: #### L [id number] ####[facility] ([facility])[address] [place] [address] UREA NITROGEN/CREATININE (MASS RATIO) IN SER/PLAS 21.4 Normal [facility] Comment on above: Performed By: #### L [id number] ####[facility] ([facility])[address] [place] [address] CBC WITH AUTO DIFFERENTIALon 09-01-2024 Basophils (Bld) [#/Vol] 0.07 10*3/uL Normal 0.00-0.20 [facility] Comment on above: Performed By: #### L [id number] ####[facility] ([facility])[address] [place] [address] Basophils/100 WBC (Bld) 1.0 % Normal 0.0-1.0 [facility] Comment on above: Performed By: #### L [id number] ####[facility] ([facility])[address] [place] [address] Eosinophils (Bld) [#/Vol] 0.37 10*3/uL Normal 0.00-0.50 [facility] Comment on above: Performed By: #### L [id number] ####[facility] ([facility])[address] [place] [address] Eosinophils/100 WBC (Bld) 5.1 % Normal 0.0-6.0 [facility] Comment on above: Performed By: #### L [id number] ####[facility] ([facility])[address] [place] [address] Erythrocyte distribution width (RBC) [Ratio] 15.1 % High 11.5-15.0 [facility] Comment on above: Performed By: #### L [id number] ####[facility] ([facility])[address] [place] [address] ERYTHROCYTE MEAN CORPUSCULAR HEMOGLOBIN CONCENTRATION (G/DL) BY AUTOMATED 31.3 g/dL Low 32.0-35.0 [facility] Comment on above: Performed By: #### L [id number] ####[facility] ([facility])[address] [place] [address] Hematocrit (Bld) [Volume fraction] 46.3 % Normal 39.0-55.0 [facility] Comment on above: Performed By: #### L [id number] ####[facility] ([facility])[address] [place] [address] Hemoglobin (Bld) [Mass/Vol] 14.5 g/dL Normal 13.0-17.0 [facility] Comment on above: Performed By: #### L [id number] ####[facility] ([facility])[address] [place] [address] Immature granulocytes (Bld) [#/Vol] 0.04 10*3/uL Normal 0.00-0.20 [facility] Comment on above: Performed By: #### L [id number] ####[facility] ([facility])[address] [place] [address] Immature granulocytes/100 WBC (Bld) 0.6 % Normal 0.0-1.0 [facility] Comment on above: Performed By: #### L [id number] ####[facility] ([facility])[address] [place] [address] Lymphocytes (Bld) [#/Vol] 1.46 10*3/uL Normal 1.20-4.00 [facility] Comment on above: Performed By: #### L [id number] ####[facility] ([facility])[address] [place] [address] Lymphocytes/100 WBC (Bld) 20.2 % Normal 20.0-45.0 [facility] Comment on above: Performed By: #### L [id number] ####[facility] ([facility])[address] [place] [address] MCH (RBC) [Entitic mass] 29.1 pg Normal 27.0-33.0 [facility] Comment on above: Performed By: #### L [id number] ####[facility] ([facility])[address] [place] [address] MCV (RBC) [Entitic vol] 92.8 fL Normal 82.0-98.0 [facility] Comment on above: Performed By: #### L [id number] ####[facility] ([facility])[address] [place] [address] Monocytes (Bld) [#/Vol] 0.85 10*3/uL Normal 0.10-1.00 [facility] Comment on above: Performed By: #### L [id number] ####[facility] ([facility])[address] [place] [address] Monocytes/100 WBC (Bld) 11.8 % Normal 5.0-12.0 [facility] Comment on above: Performed By: #### L [id number] ####[facility] ([facility])[address] [place] [address] Neutrophils (Bld) [#/Vol] 4.43 10*3/uL Normal 1.60-7.60 [facility] Comment on above: Performed By: #### L [id number] ####[facility] ([facility])[address] [place] [address] Neutrophils/100 WBC (Bld) 61.3 % Normal 40.0-72.0 [facility] Comment on above: Performed By: #### L [id number] ####[facility] ([facility])[address] [place] [address] NRBC (PER 100 WBCS) BY AUTOMATED COUNT 0.0 % Normal 0 [facility] Comment on above: Performed By: #### L [id number] ####[facility] ([facility])[address] [place] [address] PLATELETS (10*3/UL) IN BLOOD AUTOMATED COUNT 268 10*3/uL Normal 150-400 [facility] Comment on above: Performed By: #### L [id number] ####[facility] ([facility])[address] [place] [address] RBC (Bld) [#/Vol] 4.99 10*6/uL Normal 4.20-5.70 [facility] Comment on above: Performed By: #### L [id number] ####[facility] ([facility])[address] [place] [address] WBC (Bld) [#/Vol] 7.22 10*3/uL Normal 4.00-10.60 [facility] Comment on above: Performed By: #### L [id number] ####[facility] ([facility])[address] [place] [address] MAGNESIUMon 09-01-2024 Magnesium [Mass/Vol] 1.8 mg/dL Low 1.9-2.7 [facility] Comment on above: Performed By: #### L [id number] ####[facility] ([facility])[address] [place] [address] POCT GLUCOSE METER UNSOLICIT ED RESULTSon 09-01-2024 Glucose [Mass/Vol] 225 mg/dL High 70-105 [facility] Comment on above: Order Comment: Waive d Testing in the ED is performed under the ED CLIA certificate #[id number]. Result Comment: [email or web address] kol Performed By: #### L [id number] ####[facility] ([facility])[address] [place] [address] Glucose [Mass/Vol] 181 mg/dL High 70-105 [facility] Comment on above: Order Comment: Waive d Testing in the ED is performed under the ED CLIA certificate #[id number]. Result Comment: [email or web address] Performed By: #### L [id number] ####[facility] ([facility])[address] [place] [address] Glucose [Mass/Vol] 209 mg/dL High 70-105 [facility] Comment on above: Order Comment: Waive d Testing in the ED is performed under the ED CLIA certificate #[id number]. Result Comment: [email or web address] Performed By: #### L [id number] ####[facility] ([facility])[address] [place] [address] Glucose [Mass/Vol] 181 mg/dL High 70-105 [facility] Comment on above: Order Comment: Waive d Testing in the ED is performed under the ED CLIA certificate #[id number]. Result Comment: [email or web address] Performed By: #### L [id number] ####[facility] ([facility])[address] [place] [address] 30on 08-31-2024 30 Normal [facility] 30 Normal [facility] BASIC METABOLIC PANELon 08-21 Anion gap [Moles/Vol] 8 mmol/L Normal 7-20 [facility] Comment on above: Performed By: #### L [id number] ####[facility] ([facility])[address] [place] [address] Calcium [Mass/Vol] 9.6 mg/dL Normal 8.6-10.3 [facility] Comment on above: Performed By: #### L [id number] ####[facility] ([facility])[address] [place] [address] Chloride [Moles/Vol] 97 mmol/L Low 98-107 [facility] Comment on above: Performed By: #### L [id number] ####[facility] ([facility])[address] [place] [address] CO2 [Moles/Vol] 35 mmol/L High 21-31 [facility] Comment on above: Performed By: #### L [id number] ####[facility] ([facility])[address] [place] [address] Creatinine [Mass/Vol] 0.85 mg/dL Normal 0.70-1.30 [facility] Comment on above: Performed By: #### L [id number] ####[facility] ([facility])[address] [place] [address] GLOMERULAR FILTRATION RATE ML/MIN/1.73 SQ M.PREDICTED 96.4 mL/min/1.73m*2 Normal >60.0 [facility] Comment on above: Result Comment: [facility]???s estimated glomerular filtration rate (eGFR) will [...] of individuals. Performed By: #### L [id number] ####[facility] ([facility])[address] [place] [address] Glucose [Mass/Vol] 205 mg/dL High 70-100 [facility] Comment on above: Performed By: #### L [id number] ####[facility] ([facility])[address] [place] [address] Potassium [Moles/Vol] 3.9 mmol/L Normal 3.5-5.1 [facility] Comment on above: Performed By: #### L [id number] ####[facility] ([facility])[address] [place] [address] Sodium [Moles/Vol] 136 mmol/L Normal 136-145 [facility] Comment on above: Performed By: #### L [id number] ####[facility] ([facility])[address] [place] [address] Urea nitrogen [Mass/Vol] 21 mg/dL Normal 7-25 [facility] Comment on above: Performed By: #### L [id number] ####[facility] ([facility])[address] [place] [address] UREA NITROGEN/CREATININE (MASS RATIO) IN SER/PLAS 24.7 Normal [facility] Comment on above: Performed By: #### L [id number] ####[facility] ([facility])[address] [place] [address] CBC WITH AUTO DIFFERENTIALon 08-31-2024 Basophils (Bld) [#/Vol] 0.06 10*3/uL Normal 0.00-0.20 [facility] Comment on above: Performed By: #### L [id number] ####[facility] ([facility])[address] [place] [address] Basophils/100 WBC (Bld) 0.8 % Normal 0.0-1.0 [facility] Comment on above: Performed By: #### L [id number] ####[facility] ([facility])[address] [place] [address] Eosinophils (Bld) [#/Vol] 0.38 10*3/uL Normal 0.00-0.50 [facility] Comment on above: Performed By: #### L [id number] ####[facility] ([facility])[address] [place] [address] Eosinophils/100 WBC (Bld) 5.3 % Normal 0.0-6.0 [facility] Comment on above: Performed By: #### L [id number] ####[facility] ([facility])[address] [place] [address] Erythrocyte distribution width (RBC) [Ratio] 15.2 % High 11.5-15.0 [facility] Comment on above: Performed By: #### L [id number] ####[facility] ([facility])[address] [place] [address] ERYTHROCYTE MEAN CORPUSCULAR HEMOGLOBIN CONCENTRATION (G/DL) BY AUTOMATED 30.4 g/dL Low 32.0-35.0 [facility] Comment on above: Performed By: #### L [id number] ####[facility] ([facility])[address] [place] [address] Hematocrit (Bld) [Volume fraction] 48.3 % Normal 39.0-55.0 [facility] Comment on above: Performed By: #### L [id number] ####[facility] ([facility])[address] [place] [address] Hemoglobin (Bld) [Mass/Vol] 14.7 g/dL Normal 13.0-17.0 [facility] Comment on above: Performed By: #### L [id number] ####[facility] (BEAKER)[address] [place] [address] Immature granulocytes (Bld) [#/Vol] 0.06 10*3/uL Normal 0.00-0.20 [facility] Comment on above: Performed By: #### L [id number] ####[facility] [place] [address] Immature granulocytes/100 WBC (Bld) 0.8 % Normal 0.0-1.0 [facility] Comment on above: Performed By: #### L [id number] ####[facility] (BEAKER)[address] [place] [address] Lymphocytes (Bld) [#/Vol] 1.17 10*3/uL Low 1.20-4.00 [facility] Comment on above: Performed By: #### L [id number] ####[facility] (BEAKER)[address] [place] [address] Lymphocytes/100 WBC (Bld) 16.3 % Low 20.0-45.0 [facility] Comment on above: Performed By: #### L [id number] ####[facility] ([facility])[address] [place] [address] MCH (RBC) [Entitic mass] 29.0 pg Normal 27.0-33.0 [facility] Comment on above: Performed By: #### L [id number] ####[facility] ([facility])[address] [place] [address] MCV (RBC) [Entitic vol] 95.3 fL Normal 82.0-98.0 [facility] Comment on above: Performed By: #### L [id number] ####[facility] ([facility])[address] [place] [address] Monocytes (Bld) [#/Vol] 0.82 10*3/uL Normal 0.10-1.00 [facility] Comment on above: Performed By: #### L [id number] ####[facility] ([facility])[address] [place] [address] Monocytes/100 WBC (Bld) 11.4 % Normal 5.0-12.0 [facility] Comment on above: Performed By: #### L [id number] ####[facility] ([facility])[address] [address] Neutrophils (Bld) [#/Vol] 4.70 10*3/uL Normal 1.60-7.60 [facility] Comment on above: Performed By: #### L [id number] ####[facility] ([facility])[address] [address] Neutrophils/100 WBC (Bld) 65.4 % Normal 40.0-72.0 [facility] Comment on above: Performed By: #### L [id number] ####[facility] ([facility])[address] [place] [address] NRBC (PER 100 WBCS) BY AUTOMATED COUNT 0.0 % Normal 0 [facility] Comment on above: Performed By: #### L [id number] ####[facility] ([facility])[address] [address] PLATELETS (10*3/UL) IN BLOOD AUTOMATED COUNT 278 10*3/uL Normal 150-400 [facility] Comment on above: Performed By: #### L [id number] ####[facility] ([facility])[address] [place] [address] RBC (Bld) [#/Vol] 5.07 10*6/uL Normal 4.20-5.70 [facility] Comment on above: Performed By: #### L [id number] ####[facility] ([facility])[address] [address] WBC (Bld) [#/Vol] 7.19 10*3/uL Normal 4.00-10.60 [facility] Comment on above: Performed By: #### L [id number] ####[facility] ([facility])[address] [place] [address] MAGNESIUMon 08-31-2024 Magnesium [Mass/Vol] 1.6 mg/dL Low 1.9-2.7 [facility] Comment on above: Performed By: #### L [id number] ####[facility] ([facility])[address] [place] [address] POCT GLUCOSE METER UNSOLICIT ED RESULTSon 08-31-2024 Glucose [Mass/Vol] 281 mg/dL High 70-105 [facility] Comment on above: Order Comment: Waive d Testing in the ED is performed under the ED CLIA certificate #[id number]. Result Comment: [email or web address] hro Performed By: #### L [id number] ####[facility] ([facility])[address] [place] [address] Glucose [Mass/Vol] 157 mg/dL High 70-105 [facility] Comment on above: Order Comment: Waive d Testing in the ED is performed under the ED CLIA certificate #[id number]. Result Comment: [email or web address] Performed By: #### L [id number] ####[facility] ([facility])[address] [place] [address] Glucose [Mass/Vol] 212 mg/dL High 70-105 [facility] Comment on above: Order Comment: Waive d Testing in the ED is performed under the ED CLIA certificate #[id number]. Result Comment: [email or web address] Performed By: #### L [id number] ####[facility] ([facility])[address] [place] [address] Glucose [Mass/Vol] 167 mg/dL High 70-105 [facility] Comment on above: Order Comment: Waive d Testing in the ED is performed under the ED CLIA certificate #[id number]. Result Comment: [email or web address] [email or web address] Performed By: #### L [id number] ####[facility] ([facility])[address] [place] [address] 30on 08-30-2024 30 Normal [facility] BASIC METABOLIC PANELon 08-21 Anion gap [Moles/Vol] 10 mmol/L Normal 7-20 [facility] Comment on above: Performed By: #### L [id number] ####[facility] ([facility])[address] [place] [address] Calcium [Mass/Vol] 10.3 mg/dL Normal 8.6-10.3 [facility] Comment on above: Performed By: #### L [id number] ####[facility] ([facility])[address] [place] [address] Chloride [Moles/Vol] 94 mmol/L Low 98-107 [facility] Comment on above: Performed By: #### L [id number] ####[facility] ([facility])[address] [place] [address] CO2 [Moles/Vol] 34 mmol/L High 21-31 [facility] Comment on above: Performed By: #### L [id number] ####[facility] ([facility])[address] [place] [address] Creatinine [Mass/Vol] 0.98 mg/dL Normal 0.70-1.30 [facility] Comment on above: Performed By: #### L [id number] ####[facility] ([facility] [place] [address] GLOMERULAR FILTRATION RATE ML/MIN/1.73 SQ M.PREDICTED 85.6 mL/min/1.73m*2 Normal >60.0 [facility] Comment on above: Result Comment: The [facility]???s estimated glomerular filtration rate (eGFR) will [...] of individuals. Performed By: #### L [id number] ####[facility] ([facility])[address] [place] [address] Glucose [Mass/Vol] 184 mg/dL High 70-100 [facility] Comment on above: Performed By: #### L [id number] ####[facility] ([facility])[address] [place], [place] [address] Potassium [Moles/Vol] 4.1 mmol/L Normal 3.5-5.1 [facility] Comment on above: Performed By: #### L [id number] ####[facility] ([facility])[address] [place], [place] [address] Sodium [Moles/Vol] 134 mmol/L Low 136-145 [facility] Comment on above: Performed By: #### L [id number] ####[facility] ([facility])[address] [place] [address] Urea nitrogen [Mass/Vol] 27 mg/dL High 7-25 [facility] Comment on above: Performed By: #### L [id number] ####[facility] ([facility])[address] [place] [address] UREA NITROGEN/CREATININE (MASS RATIO) IN SER/PLAS 27.6 Normal [facility] Comment on above: Performed By: #### L [id number] ####[facility] ([facility])[address] [place] [address] CBC WITH AUTO DIFFERENTIALon 08-30-2024 Basophils (Bld) [#/Vol] 0.09 10*3/uL Normal 0.00-0.20 [facility] Comment on above: Performed By: #### L [id number] ####[facility] ([facility])[address] [place], [place] [address] Basophils/100 WBC (Bld) 1.0 % Normal 0.0-1.0 [facility] Comment on above: Performed By: #### L [id number] ####[facility] ([facility])[address] [place] [address] Eosinophils (Bld) [#/Vol] 0.54 10*3/uL High 0.00-0.50 [facility] Comment on above: Performed By: #### L [id number] ####[facility] ([facility])[address] [place] [address] Eosinophils/100 WBC (Bld) 5.9 % Normal 0.0-6.0 [facility] Comment on above: Performed By: #### L [id number] ####[facility] ([facility])[address] [place] [address] Erythrocyte distribution width (RBC) [Ratio] 14.9 % Normal 11.5-15.0 [facility] Comment on above: Performed By: #### L [id number] ####[facility] ([facility])[address] [place] [address] ERYTHROCYTE MEAN CORPUSCULAR HEMOGLOBIN CONCENTRATION (G/DL) BY AUTOMATED 31.0 g/dL Low 32.0-35.0 [facility] Comment on above: Performed By: #### L [id number] ####[facility] ([facility])[address] [place] [address] Hematocrit (Bld) [Volume fraction] 50.9 % Normal 39.0-55.0 [facility] Comment on above: Performed By: #### L [id number] ####[facility] ([facility])[address] [place] [address] Hemoglobin (Bld) [Mass/Vol] 15.8 g/dL Normal 13.0-17.0 [facility] Comment on above: Performed By: #### L [id number] ####[facility] ([facility])[address] [place] [address] Immature granulocytes (Bld) [#/Vol] 0.06 10*3/uL Normal 0.00-0.20 [facility] Comment on above: Performed By: #### L [id number] ####[facility] ([facility])[address] [place] [address] Immature granulocytes/100 WBC (Bld) 0.7 % Normal 0.0-1.0 [facility] Comment on above: Performed By: #### L [id number] ####[facility] ([facility])[address] [place] [address] Lymphocytes (Bld) [#/Vol] 1.65 10*3/uL Normal 1.20-4.00 [facility] Comment on above: Performed By: #### L [id number] ####[facility] ([facility])[address] [place] [address] Lymphocytes/100 WBC (Bld) 17.9 % Low 20.0-45.0 [facility] Comment on above: Performed By: #### L [id number] ####[facility] ([facility])[address] [place] [address] MCH (RBC) [Entitic mass] 29.2 pg Normal 27.0-33.0 [facility] Comment on above: Performed By: #### L [id number] ####[facility] ([facility])[address] [place] [address] MCV (RBC) [Entitic vol] 93.9 fL Normal 82.0-98.0 [facility] Comment on above: Performed By: #### L [id number] ####[facility] ([facility])[address] [place] [address] Monocytes (Bld) [#/Vol] 1.05 10*3/uL High 0.10-1.00 [facility] Comment on above: Performed By: #### L [id number] ####[facility] ([facility])[address] [place] [address] Monocytes/100 WBC (Bld) 11.4 % Normal 5.0-12.0 [facility] Comment on above: Performed By: #### L [id number] ####[facility] ([facility])[address] [place] [address] Neutrophils (Bld) [#/Vol] 5.82 10*3/uL Normal 1.60-7.60 [facility] Comment on above: Performed By: #### L [id number] ####[facility] ([facility])[address] [place] [address] Neutrophils/100 WBC (Bld) 63.1 % Normal 40.0-72.0 [facility] Comment on above: Performed By: #### L [id number] ####[facility] ([facility])[address] [address] NRBC (PER 100 WBCS) BY AUTOMATED COUNT 0.0 % Normal 0 [facility] Comment on above: Performed By: #### L [id number] ####[facility] ([facility])[address] [place] [address] PLATELETS (10*3/UL) IN BLOOD AUTOMATED COUNT 298 10*3/uL Normal 150-400 [facility] Comment on above: Performed By: #### L [id number] ####[facility] ([facility])[address] [place] [address] RBC (Bld) [#/Vol] 5.42 10*6/uL Normal 4.20-5.70 [facility] Comment on above: Performed By: #### L [id number] ####[facility] ([facility])[address] [address] WBC (Bld) [#/Vol] 9.21 10*3/uL Normal 4.00-10.60 [facility] Comment on above: Performed By: #### L [id number] ####[facility] ([facility])[address] [place] [address] CONSULTon 08-30-2024 CONSULT Normal [facility] MAGNESIUMon 08-30-2024 Magnesium [Mass/Vol] 1.7 mg/dL Low 1.9-2.7 [facility] Comment on above: Performed By: #### L [id number] ####[facility] ([facility] [place] [address] NURSNOTEon 08-30-2024 NURSNOTE Normal [facility] POCT GLUCOSE METER UNSOLICIT ED RESULTSon 08-30-2024 Glucose [Mass/Vol] 294 mg/dL High 70-105 [facility] Comment on above: Order Comment: Waive d Testing in the ED is performed under the ED CLIA certificate #[id number]. Result Comment: [email or web address] [id number] Value Noted Performed By: #### L [id number] ####[facility] ([facility])[address] [place] [address] Glucose [Mass/Vol] 162 mg/dL High 70-105 [facility] Comment on above: Order Comment: Waive d Testing in the ED is performed under the ED CLIA certificate #[id number]. Result Comment: [email or web address] rbo Performed By: #### L [id number] ####[facility] ([employer])[address] [facility] [place] [address] Glucose [Mass/Vol] 193 mg/dL High 70-105 [facility] Comment on above: Order Comment: Waive d Testing in the ED is performed under the ED CLIA certificate #[id number]. Result Comment: abee rbo Performed By: #### L [id number] ####[facility] ([facility] [address] Glucose [Mass/Vol] 235 mg/dL High 70-105 [facility] Comment on above: Order Comment: Waive d Testing in the ED is performed under the ED CLIA certificate #[id number]. Result Comment: [email or web address] [email or web address] Performed By: #### L [id number] ####[facility] ([facility])[address] [facility] [place] [address] Glucose [Mass/Vol] 209 mg/dL High 70-105 [facility] Comment on above: Order Comment: Waive d Testing in the ED is performed under the ED CLIA certificate #[id number]. Result Comment: [email or web address] [email or web address] Performed By: #### L [id number] ####[facility] ([facility])[address] [place] [address] BASIC METABOLIC PANELon 02-0 Anion gap [Moles/Vol] 7 mmol/L Normal 7-20 [facility] Comment on above: Performed By: #### L [id number] ####[facility] ([facility] [place] [address] Calcium [Mass/Vol] 10.5 mg/dL High 8.6-10.3 [facility] Comment on above: Performed By: #### L [id number] ####[facility] ([facility])[address] [place] [address] Chloride [Moles/Vol] 93 mmol/L Low 98-107 [facility] Comment on above: Performed By: #### L [id number] ####[facility] ([facility])[address] [place] [address] CO2 [Moles/Vol] 38 mmol/L High 21-31 [facility] Comment on above: Performed By: #### L [id number] ####[facility] ([facility])[address] [place] [address] Creatinine [Mass/Vol] 0.96 mg/dL Normal 0.70-1.30 [facility] Comment on above: Performed By: #### L [id number] ####[facility] ([facility])[address] [place] [address] GLOMERULAR FILTRATION RATE ML/MIN/1.73 SQ M.PREDICTED 87.7 mL/min/1.73m*2 Normal >60.0 [facility] Comment on above: Result Comment: The [facility]???s estimated glomerular filtration rate (eGFR) will [...] of individuals. Performed By: #### L [id number] ####[facility] ([facility])[address] [place] [address] Glucose [Mass/Vol] 182 mg/dL High 70-100 [facility] Comment on above: Performed By: #### L [id number] ####[facility] ([facility])[address] [place] [address] Potassium [Moles/Vol] 4.1 mmol/L Normal 3.5-5.1 [facility] Comment on above: Performed By: #### L [id number] ####[facility] ([facility])[address] [place] [address] Sodium [Moles/Vol] 134 mmol/L Low 136-145 [facility] Comment on above: Performed By: #### L [id number] ####[facility] ([facility])[address] [place] [address] Urea nitrogen [Mass/Vol] 23 mg/dL Normal 7-25 [facility] Comment on above: Performed By: #### L [id number] ####[facility] ([facility])[address] [place] [address] UREA NITROGEN/CREATININE (MASS RATIO) IN SER/PLAS 24.0 Normal [facility] Comment on above: Performed By: #### L [id number] ####[facility] ([facility])[address] [place] [address] CBC WITH AUTO DIFFERENTIALon 08-29-2024 Basophils (Bld) [#/Vol] 0.09 10*3/uL Normal 0.00-0.20 [facility] Comment on above: Performed By: #### L [id number] ####[facility] ([facility])[address] [place] [address] Basophils/100 WBC (Bld) 1.0 % Normal 0.0-1.0 [facility] Comment on above: Performed By: #### L [id number] ####[facility] ([facility])[address] [place] [address] Eosinophils (Bld) [#/Vol] 0.48 10*3/uL Normal 0.00-0.50 [facility] Comment on above: Performed By: #### L [id number] ####[facility] ([facility])[address] [place] [address] Eosinophils/100 WBC (Bld) 5.3 % Normal 0.0-6.0 [facility] Comment on above: Performed By: #### L [id number] ####[facility] ([facility])[address] [place] [address] Erythrocyte distribution width (RBC) [Ratio] 15.0 % Normal 11.5-15.0 [facility] Comment on above: Performed By: #### L [id number] ####[facility] ([facility] [place] [address] ERYTHROCYTE MEAN CORPUSCULAR HEMOGLOBIN CONCENTRATION (G/DL) BY AUTOMATED 30.5 g/dL Low 32.0-35.0 [facility] Comment on above: Performed By: #### L [id number] ####[facility] ([facility])[address] [place] [address] Hematocrit (Bld) [Volume fraction] 51.2 % Normal 39.0-55.0 [facility] Comment on above: Performed By: #### L [id number] ####[facility] ([facility])[address] [place] [address] Hemoglobin (Bld) [Mass/Vol] 15.6 g/dL Normal 13.0-17.0 [facility] Comment on above: Performed By: #### L [id number] ####[facility] ([facility])[address] [place] [address] Immature granulocytes (Bld) [#/Vol] 0.07 10*3/uL Normal 0.00-0.20 [facility] Comment on above: Performed By: #### L [id number] ####[facility] ([facility])[address] [place] [address] Immature granulocytes/100 WBC (Bld) 0.8 % Normal 0.0-1.0 [facility] Comment on above: Performed By: #### L [id number] ####[facility] ([facility])[address] [place] [address] Lymphocytes (Bld) [#/Vol] 1.41 10*3/uL Normal 1.20-4.00 [facility] Comment on above: Performed By: #### L [id number] ####[facility] ([facility])[address] [place] [address] Lymphocytes/100 WBC (Bld) 15.7 % Low 20.0-45.0 [facility] Comment on above: Performed By: #### L [id number] ####[facility] ([facility])[address] [place] [address] MCH (RBC) [Entitic mass] 29.0 pg Normal 27.0-33.0 [facility] Comment on above: Performed By: #### L [id number] ####[facility] ([facility])[address] [place] [address] MCV (RBC) [Entitic vol] 95.2 fL Normal 82.0-98.0 [facility] Comment on above: Performed By: #### L [id number] ####[facility] ([facility])[address] [place] [address] Monocytes (Bld) [#/Vol] 0.82 10*3/uL Normal 0.10-1.00 [facility] Comment on above: Performed By: #### L [id number] ####[facility] ([facility])[address] [place] [address] Monocytes/100 WBC (Bld) 9.1 % Normal 5.0-12.0 [facility] Comment on above: Performed By: #### L [id number] ####[facility] ([facility])[address] [place] [address] Neutrophils (Bld) [#/Vol] 6.11 10*3/uL Normal 1.60-7.60 [facility] Comment on above: Performed By: #### L [id number] ####[facility] ([facility])[address] [address] Neutrophils/100 WBC (Bld) 68.1 % Normal 40.0-72.0 [facility] Comment on above: Performed By: #### L [id number] ####[facility] ([facility])[address] [address] NRBC (PER 100 WBCS) BY AUTOMATED COUNT 0.0 % Normal 0 [facility] Comment on above: Performed By: #### L [id number] ####[facility] ([facility])[address] [address] PLATELETS (10*3/UL) IN BLOOD AUTOMATED COUNT 262 10*3/uL Normal 150-400 [facility] Comment on above: Performed By: #### L [id number] ####[facility] ([facility])[address] [place] [address] RBC (Bld) [#/Vol] 5.38 10*6/uL Normal 4.20-5.70 [facility] Comment on above: Performed By: #### L [id number] ####[facility] ([facility])[address] [place] [address] WBC (Bld) [#/Vol] 8.98 10*3/uL Normal 4.00-10.60 [facility] Comment on above: Performed By: #### L [id number] ####[facility] ([facility])[address] [address] MAGNESIUMon 08-29-2024 Magnesium [Mass/Vol] 1.7 mg/dL Low 1.9-2.7 [facility] Comment on above: Performed By: #### L [id number] ####[facility] ([facility])[address] [place] [address] POCT GLUCOSE METER UNSOLICIT ED RESULTSon 08-29-2024 Glucose [Mass/Vol] 284 mg/dL High 70-105 [facility] Comment on above: Order Comment: Waive d Testing in the ED is performed under the ED CLIA certificate #[id number]. Result Comment: sbel air Performed By: #### L [id number] ####[facility] ([facility])[address] [place] [address] Glucose [Mass/Vol] 259 mg/dL High 70-105 [facility] Comment on above: Order Comment: Waive d Testing in the ED is performed under the ED CLIA certificate #[id number]. Result Comment: aall [email or web address] Performed By: #### L [id number] ####[facility] ([facility])[address] [place] [address] Glucose [Mass/Vol] 301 mg/dL High 70-105 [facility] Comment on above: Order Comment: Waive d Testing in the ED is performed under the ED CLIA certificate #[id number]. Result Comment: aall [email or web address] Performed By: #### L [id number] ####[facility] ([facility])[address] [place] [address] Glucose [Mass/Vol] 166 mg/dL High 70-105 [facility] Comment on above: Order Comment: Waive d Testing in the ED is performed under the ED CLIA certificate #[id number]. Result Comment: aall [email or web address] Performed By: #### L [id number] ####[facility] ([facility])[address] [place] [address] BASIC METABOLIC PANELon 02-0 Anion gap [Moles/Vol] 8 mmol/L Normal 7-20 [facility] Comment on above: Performed By: #### L [id number] ####[facility] ([facility])[address] [place] [address] Calcium [Mass/Vol] 9.8 mg/dL Normal 8.6-10.3 [facility] Comment on above: Performed By: #### L [id number] ####[facility] ([facility])[address] [place] [address] Chloride [Moles/Vol] 96 mmol/L Low 98-107 [facility] Comment on above: Performed By: #### L [id number] ####[facility] ([facility])[address] [place] [address] CO2 [Moles/Vol] 37 mmol/L High 21-31 [facility] Comment on above: Performed By: #### L [id number] ####[facility] ([facility])[address] [place] [address] Creatinine [Mass/Vol] 0.82 mg/dL Normal 0.70-1.30 [facility] Comment on above: Performed By: #### L [id number] ####[facility] ([facility])[address] [place] [address] GLOMERULAR FILTRATION RATE ML/MIN/1.73 SQ M.PREDICTED 97.5 mL/min/1.73m*2 Normal >60.0 [facility] Comment on above: Result Comment: [facility]???s estimated glomerular filtration rate (eGFR) will [...] of individuals. Performed By: #### L [id number] ####[facility] ([facility])[address] [place] [address] Glucose [Mass/Vol] 183 mg/dL High 70-100 [facility] Comment on above: Performed By: #### L [id number] ####[facility] ([facility])[address] [place] [address] Potassium [Moles/Vol] 3.7 mmol/L Normal 3.5-5.1 [facility] Comment on above: Performed By: #### L [id number] ####[facility] ([facility])[address] [place] [address] Sodium [Moles/Vol] 137 mmol/L Normal 136-145 [facility] Comment on above: Performed By: #### L [id number] ####[facility] ([facility])[address] [place] [address] Urea nitrogen [Mass/Vol] 17 mg/dL Normal 7-25 [facility] Comment on above: Performed By: #### L [id number] ####[facility] ([facility])[address] [place] [address] UREA NITROGEN/CREATININE (MASS RATIO) IN SER/PLAS 20.7 Normal [facility] Comment on above: Performed By: #### L [id number] ####[facility] ([facility])[address] [place] [address] CBC WITH AUTO DIFFERENTIALon 08-28-2024 Basophils (Bld) [#/Vol] 0.09 10*3/uL Normal 0.00-0.20 [facility] Comment on above: Performed By: #### L [id number] ####[facility] ([facility])[address] [place] [address] Basophils/100 WBC (Bld) 0.9 % Normal 0.0-1.0 [facility] Comment on above: Performed By: #### L [id number] ####[facility] ([facility])[address] [place] [address] Eosinophils (Bld) [#/Vol] 0.40 10*3/uL Normal 0.00-0.50 [facility] Comment on above: Performed By: #### L [id number] ####[facility] ([facility])[address] [place] [address] Eosinophils/100 WBC (Bld) 4.2 % Normal 0.0-6.0 [facility] Comment on above: Performed By: #### L [id number] ####[facility] ([facility])[address] [place] [address] Erythrocyte distribution width (RBC) [Ratio] 14.8 % Normal 11.5-15.0 [facility] Comment on above: Performed By: #### L [id number] ####[facility] ([facility])[address] [place] [address] ERYTHROCYTE MEAN CORPUSCULAR HEMOGLOBIN CONCENTRATION (G/DL) BY AUTOMATED 30.3 g/dL Low 32.0-35.0 [facility] Comment on above: Performed By: #### L [id number] ####[facility] ([facility])[address] [place] [address] Hematocrit (Bld) [Volume fraction] 50.9 % Normal 39.0-55.0 [facility] Comment on above: Performed By: #### L [id number] ####[facility] ([facility])[address] [place] [address] Hemoglobin (Bld) [Mass/Vol] 15.4 g/dL Normal 13.0-17.0 [facility] Comment on above: Performed By: #### L [id number] ####[facility] ([facility])[address] [place] [address] Immature granulocytes (Bld) [#/Vol] 0.06 10*3/uL Normal 0.00-0.20 [facility] Comment on above: Performed By: #### L [id number] ####[facility] ([facility])[address] [place] [address] Immature granulocytes/100 WBC (Bld) 0.6 % Normal 0.0-1.0 [facility] Comment on above: Performed By: #### L [id number] ####[facility] ([facility])[address] [place] [address] Lymphocytes (Bld) [#/Vol] 1.68 10*3/uL Normal 1.20-4.00 [facility] Comment on above: Performed By: #### L [id number] ####[facility] ([facility])[address] [place] [address] Lymphocytes/100 WBC (Bld) 17.6 % Low 20.0-45.0 [facility] Comment on above: Performed By: #### L [id number] ####[facility] ([facility])[address] [place] [address] MCH (RBC) [Entitic mass] 29.2 pg Normal 27.0-33.0 [facility] Comment on above: Performed By: #### L [id number] ####[facility] ([facility])[address] [place] [address] MCV (RBC) [Entitic vol] 96.6 fL Normal 82.0-98.0 [facility] Comment on above: Performed By: #### L [id number] ####[facility] ([facility])[address] [place] [address] Monocytes (Bld) [#/Vol] 0.99 10*3/uL Normal 0.10-1.00 [facility] Comment on above: Performed By: #### L [id number] ####[facility] ([facility])[address] [place] [address] Monocytes/100 WBC (Bld) 10.4 % Normal 5.0-12.0 [facility] Comment on above: Performed By: #### L [id number] ####[facility] ([facility])[address] [place] [address] Neutrophils (Bld) [#/Vol] 6.33 10*3/uL Normal 1.60-7.60 [facility] Comment on above: Performed By: #### L [id number] ####[facility] ([facility])[address] [place] [address] Neutrophils/100 WBC (Bld) 66.3 % Normal 40.0-72.0 [facility] Comment on above: Performed By: #### L [id number] ####[facility] ([facility])[address] [place] [address] NRBC (PER 100 WBCS) BY AUTOMATED COUNT 0.0 % Normal 0 [facility] Comment on above: Performed By: #### L [id number] ####[facility] ([facility])[address] [place] [address] PLATELETS (10*3/UL) IN BLOOD AUTOMATED COUNT 252 10*3/uL Normal 150-400 [facility] Comment on above: Performed By: #### L [id number] ####[facility] ([facility])[address] [place] [address] RBC (Bld) [#/Vol] 5.27 10*6/uL Normal 4.20-5.70 [facility] Comment on above: Performed By: #### L [id number] ####[facility] ([facility])[address] [place] [address] WBC (Bld) [#/Vol] 9.55 10*3/uL Normal 4.00-10.60 [facility] Comment on above: Performed By: #### L [id number] ####[facility] ([facility])[address] [place] [address] MAGNESIUMon 08-28-2024 Magnesium [Mass/Vol] 1.8 mg/dL Low 1.9-2.7 [facility] Comment on above: Performed By: #### L [id number] ####[facility] ([facility])[address] [place] [address] NURSNOTEon 08-28-2024 NURSNOTE Normal [facility] POCT GLUCOSE METER UNSOLICIT ED RESULTSon 08-28-2024 Glucose [Mass/Vol] 258 mg/dL High 70-105 [facility] Comment on above: Order Comment: Waive d Testing in the ED is performed under the ED CLIA certificate #[id number]. Result Comment: amcn [email or web address] Performed By: #### L [id number] ####[facility] ([facility])[address] [place] [address] Glucose [Mass/Vol] 177 mg/dL High 70-105 [facility] Comment on above: Order Comment: Waive d Testing in the ED is performed under the ED CLIA certificate #[id number]. Result Comment: [email or web address] [email or web address] Performed By: #### L [id number] ####[facility] ([facility])[address] [place] [address] Glucose [Mass/Vol] 242 mg/dL High 70-105 [facility] Comment on above: Order Comment: Waive d Testing in the ED is performed under the ED CLIA certificate #[id number]. Result Comment: aall [email or web address] Performed By: #### L [id number] ####[facility] ([facility])[address] [place] [address] Glucose [Mass/Vol] 200 mg/dL High 70-105 [facility] Comment on above: Order Comment: Waive d Testing in the ED is performed under the ED CLIA certificate #[id number]. Result Comment: [email or web address] [email or web address] Performed By: #### L [id number] ####[facility] ([facility])[address] [place] [address] 30on 08-27-2024 30 Normal [facility] BASIC METABOLIC PANELon Anion gap [Moles/Vol] 6 mmol/L Low 7-20 [facility] Comment on above: Performed By: #### L [id number] ####[facility] ([facility])[address] [place] [address] Calcium [Mass/Vol] 9.8 mg/dL Normal 8.6-10.3 [facility] Comment on above: Performed By: #### L [id number] ####[facility] ([facility])[address] [place] [address] Chloride [Moles/Vol] 97 mmol/L Low 98-107 [facility] Comment on above: Performed By: #### L [id number] ####[facility] ([facility])[address] [place] [address] CO2 [Moles/Vol] 41 mmol/L Critically high 21-31 [facility] Comment on above: Performed By: #### L [id number] ####[facility] ([facility])[address] [place] [address] Creatinine [Mass/Vol] 0.81 mg/dL Normal 0.70-1.30 [facility] Comment on above: Performed By: #### L [id number] ####[facility] ([facility])[address] [place] [address] GLOMERULAR FILTRATION RATE ML/MIN/1.73 SQ M.PREDICTED 97.8 mL/min/1.73m*2 Normal >60.0 [facility] Comment on above: Result Comment: The [facility]???s estimated glomerular filtration rate (eGFR) will [...] of individuals. Performed By: #### L [id number] ####[facility] ([facility])[address] [place] [address] Glucose [Mass/Vol] 187 mg/dL High 70-100 [facility] Comment on above: Performed By: #### L [id number] ####[facility] ([facility])[address] [place] [address] Potassium [Moles/Vol] 3.5 mmol/L Normal 3.5-5.1 [facility] Comment on above: Performed By: #### L [id number] ####[facility] ([facility])[address] [place] [address] Sodium [Moles/Vol] 140 mmol/L Normal 136-145 [facility] Comment on above: Performed By: #### L [id number] ####[facility] ([facility])[address] [place] [address] Urea nitrogen [Mass/Vol] 16 mg/dL Normal 7-25 [facility] Comment on above: Performed By: #### L [id number] ####[facility] ([facility])[address] [address] UREA NITROGEN/CREATININE (MASS RATIO) IN SER/PLAS 19.8 Normal [facility] Comment on above: Performed By: #### L [id number] ####[facility] ([facility])[address] [place] [address] CBC WITH AUTO DIFFERENTIALon 08-27-2024 Basophils (Bld) [#/Vol] 0.06 10*3/uL Normal 0.00-0.20 [facility] Comment on above: Performed By: #### L [id number] ####[facility] ([facility])[address] [place] [address] Basophils/100 WBC (Bld) 0.7 % Normal 0.0-1.0 [facility] Comment on above: Performed By: #### L [id number] ####[facility] ([facility])[address] [place] [address] Eosinophils (Bld) [#/Vol] 0.38 10*3/uL Normal 0.00-0.50 [facility] Comment on above: Performed By: #### L [id number] ####[facility] ([facility])[address] [place] [address] Eosinophils/100 WBC (Bld) 4.7 % Normal 0.0-6.0 [facility] Comment on above: Performed By: #### L [id number] ####[facility] ([facility])[address] [place] [address] Erythrocyte distribution width (RBC) [Ratio] 14.6 % Normal 11.5-15.0 [facility] Comment on above: Performed By: #### L [id number] ####[facility] ([facility])[address] [place] [address] ERYTHROCYTE MEAN CORPUSCULAR HEMOGLOBIN CONCENTRATION (G/DL) BY AUTOMATED 29.7 g/dL Low 32.0-35.0 [facility] Comment on above: Performed By: #### L [id number] ####[facility] ([facility])[address] [place] [address] Hematocrit (Bld) [Volume fraction] 49.5 % Normal 39.0-55.0 [facility] Comment on above: Performed By: #### L [id number] ####[facility] ([facility])[address] [place] [address] Hemoglobin (Bld) [Mass/Vol] 14.7 g/dL Normal 13.0-17.0 [facility] Comment on above: Performed By: #### L [id number] ####[facility] ([facility])[address] [place] [address] Immature granulocytes (Bld) [#/Vol] 0.04 10*3/uL Normal 0.00-0.20 [facility] Comment on above: Performed By: #### L [id number] ####[facility] ([facility])[address] [place] [address] Immature granulocytes/100 WBC (Bld) 0.5 % Normal 0.0-1.0 [facility] Comment on above: Performed By: #### L [id number] ####[facility] ([facility])[address] [place] [address] Lymphocytes (Bld) [#/Vol] 1.42 10*3/uL Normal 1.20-4.00 [facility] Comment on above: Performed By: #### L [id number] ####[facility] ([facility])[address] [place] [address] Lymphocytes/100 WBC (Bld) 17.7 % Low 20.0-45.0 [facility] Comment on above: Performed By: #### L [id number] ####[facility] ([facility])[address] [place] [address] MCH (RBC) [Entitic mass] 28.9 pg Normal 27.0-33.0 [facility] Comment on above: Performed By: #### L [id number] ####[facility] ([facility])[address] [place] [address] MCV (RBC) [Entitic vol] 97.4 fL Normal 82.0-98.0 [facility] Comment on above: Performed By: #### L [id number] ####[facility] ([facility])[address] [place] [address] Monocytes (Bld) [#/Vol] 0.92 10*3/uL Normal 0.10-1.00 [facility] Comment on above: Performed By: #### L [id number] ####[facility] ([facility])[address] [place] [address] Monocytes/100 WBC (Bld) 11.5 % Normal 5.0-12.0 [facility] Comment on above: Performed By: #### L [id number] ####[facility] ([facility])[address] [place] [address] Neutrophils (Bld) [#/Vol] 5.19 10*3/uL Normal 1.60-7.60 [facility] Comment on above: Performed By: #### L [id number] ####[facility] ([facility])[address] [place], [place] [address] Neutrophils/100 WBC (Bld) 64.9 % Normal 40.0-72.0 [facility] Comment on above: Performed By: #### L [id number] ####[facility] ([facility])[address] [place] [address] NRBC (PER 100 WBCS) BY AUTOMATED COUNT 0.0 % Normal 0 [facility] Comment on above: Performed By: #### L [id number] ####[facility] ([facility])[address] [place] [address] PLATELETS (10*3/UL) IN BLOOD AUTOMATED COUNT 209 10*3/uL Normal 150-400 [facility] Comment on above: Performed By: #### L [id number] ####[facility] ([facility])[address] [place] [address] RBC (Bld) [#/Vol] 5.08 10*6/uL Normal 4.20-5.70 [facility] Comment on above: Performed By: #### L [id number] ####[facility] ([facility])[address] [place] [address] WBC (Bld) [#/Vol] 8.01 10*3/uL Normal 4.00-10.60 [facility] Comment on above: Performed By: #### L [id number] ####[facility] ([facility])[address] [place] [address] MAGNESIUMon 08-27-2024 Magnesium [Mass/Vol] 1.6 mg/dL Low 1.9-2.7 [facility] Comment on above: Performed By: #### L [id number] ####[facility] ([facility])[address] [place] [address] POCT GLUCOSE METER UNSOLICIT ED RESULTSon 08-27-2024 Glucose [Mass/Vol] 144 mg/dL High 70-105 [facility] Comment on above: Order Comment: Waive d Testing in the ED is performed under the ED CLIA certificate #[id number]. Result Comment: [email or web address] kol Performed By: #### L [id number] ####[facility] ([facility])[address] [place] [address] Glucose [Mass/Vol] 204 mg/dL High 70-105 [facility] Comment on above: Order Comment: Waive d Testing in the ED is performed under the ED CLIA certificate #[id number]. Result Comment: ndub ois3 Performed By: #### L [id number] ####[facility] ([facility])[address] [place] [address] Glucose [Mass/Vol] 230 mg/dL High 70-105 [facility] Comment on above: Order Comment: Waive d Testing in the ED is performed under the ED CLIA certificate #[id number]. Result Comment: [email or web address] Performed By: #### L [id number] ####[facility] ([facility])[address] [place] [address] Glucose [Mass/Vol] 174 mg/dL High 70-105 [facility] Comment on above: Order Comment: Waive d Testing in the ED is performed under the ED CLIA certificate #[id number]. Result Comment: ndub ois3 Performed By: #### L [id number] ####[facility] ([facility])[address] [place] [address] BASIC METABOLIC PANELon 02-0 Anion gap [Moles/Vol] 9 mmol/L Normal 7-20 [facility] Comment on above: Performed By: #### L [id number] ####[facility] ([facility])[address] [place] [address] Calcium [Mass/Vol] 9.4 mg/dL Normal 8.6-10.3 [facility] Comment on above: Performed By: #### L [id number] ####[facility] ([facility])[address] [place] [address] Chloride [Moles/Vol] 100 mmol/L Normal 98-107 [facility] Comment on above: Performed By: #### L [id number] ####[facility] ([facility])[address] [place] [address] CO2 [Moles/Vol] 36 mmol/L High 21-31 [facility] Comment on above: Performed By: #### L [id number] ####[facility] ([facility])[address] [place] [address] Creatinine [Mass/Vol] 0.78 mg/dL Normal 0.70-1.30 [facility] Comment on above: Performed By: #### L [id number] ####[facility] ([facility])[address] [place] [address] GLOMERULAR FILTRATION RATE ML/MIN/1.73 SQ M.PREDICTED 99.0 mL/min/1.73m*2 Normal >60.0 [facility] Comment on above: Result Comment: [facility]???s estimated glomerular filtration rate (eGFR) will [...] of individuals. Performed By: #### L [id number] ####[facility] ([facility])[address] [place] [address] Glucose [Mass/Vol] 156 mg/dL High 70-100 [facility] Comment on above: Performed By: #### L [id number] ####[facility] ([facility])[address] [place] [address] Potassium [Moles/Vol] 3.5 mmol/L Normal 3.5-5.1 [facility] Comment on above: Performed By: #### L [id number] ####[facility] ([facility])[address] [place] [address] Sodium [Moles/Vol] 141 mmol/L Normal 136-145 [facility] Comment on above: Performed By: #### L [id number] ####[facility] ([facility])[address] [place] [address] Urea nitrogen [Mass/Vol] 17 mg/dL Normal 7-25 [facility] Comment on above: Performed By: #### L [id number] ####[facility] ([facility])[address] [place] [address] UREA NITROGEN/CREATININE (MASS RATIO) IN SER/PLAS 21.8 Normal [facility] Comment on above: Performed By: #### L [id number] ####[facility] ([facility])[address] [place] [address] CBC WITH AUTO DIFFERENTIALon 08-26-2024 Basophils (Bld) [#/Vol] 0.06 10*3/uL Normal 0.00-0.20 [facility] Comment on above: Performed By: #### L [id number] ####[facility] ([facility])[address] [place] [address] Basophils/100 WBC (Bld) 0.8 % Normal 0.0-1.0 [facility] Comment on above: Performed By: #### L [id number] ####[facility] ([facility])[address] [place] [address] Eosinophils (Bld) [#/Vol] 0.39 10*3/uL Normal 0.00-0.50 [facility] Comment on above: Performed By: #### L [id number] ####[facility] ([facility])[address] [place] [address] Eosinophils/100 WBC (Bld) 5.4 % Normal 0.0-6.0 [facility] Comment on above: Performed By: #### L [id number] ####[facility] ([facility])[address] [place] [address] Erythrocyte distribution width (RBC) [Ratio] 14.7 % Normal 11.5-15.0 [facility] Comment on above: Performed By: #### L [id number] ####[facility] ([facility])[address] [place] [address] ERYTHROCYTE MEAN CORPUSCULAR HEMOGLOBIN CONCENTRATION (G/DL) BY AUTOMATED 30.4 g/dL Low 32.0-35.0 [facility] Comment on above: Performed By: #### L [id number] ####[facility] ([facility])[address] [place] [address] Hematocrit (Bld) [Volume fraction] 49.0 % Normal 39.0-55.0 [facility] Comment on above: Performed By: #### L [id number] ####[facility] ([facility])[address] [place] [address] Hemoglobin (Bld) [Mass/Vol] 14.9 g/dL Normal 13.0-17.0 [facility] Comment on above: Performed By: #### L [id number] ####[facility] ([facility])[address] [place] [address] Immature granulocytes (Bld) [#/Vol] 0.03 10*3/uL Normal 0.00-0.20 [facility] Comment on above: Performed By: #### L [id number] ####[facility] ([facility])[address] [place] [address] Immature granulocytes/100 WBC (Bld) 0.4 % Normal 0.0-1.0 [facility] Comment on above: Performed By: #### L [id number] ####[facility] ([facility])[address] [place] [address] Lymphocytes (Bld) [#/Vol] 1.21 10*3/uL Normal 1.20-4.00 [facility] Comment on above: Performed By: #### L [id number] ####[facility] ([facility])[address] [place] [address] Lymphocytes/100 WBC (Bld) 16.7 % Low 20.0-45.0 [facility] Comment on above: Performed By: #### L [id number] ####[facility] ([facility])[address] [place] [address] MCH (RBC) [Entitic mass] 29.2 pg Normal 27.0-33.0 [facility] Comment on above: Performed By: #### L [id number] ####[facility] ([facility])[address] [place] [address] MCV (RBC) [Entitic vol] 96.1 fL Normal 82.0-98.0 [facility] Comment on above: Performed By: #### L [id number] ####[facility] ([facility])[address] [place] [address] Monocytes (Bld) [#/Vol] 0.86 10*3/uL Normal 0.10-1.00 [facility] Comment on above: Performed By: #### L [id number] ####[facility] ([facility])[address] [address] Monocytes/100 WBC (Bld) 11.9 % Normal 5.0-12.0 [facility] Comment on above: Performed By: #### L [id number] ####[facility] ([facility])[address] [address] Neutrophils (Bld) [#/Vol] 4.70 10*3/uL Normal 1.60-7.60 [facility] Comment on above: Performed By: #### L [id number] ####[facility] ([facility])[address] [address] Neutrophils/100 WBC (Bld) 64.8 % Normal 40.0-72.0 [facility] Comment on above: Performed By: #### L [id number] ####[facility] ([facility])[address] [place] [address] NRBC (PER 100 WBCS) BY AUTOMATED COUNT 0.0 % Normal 0 [facility] Comment on above: Performed By: #### L [id number] ####[facility] ([facility])[address] [address] PLATELETS (10*3/UL) IN BLOOD AUTOMATED COUNT 208 10*3/uL Normal 150-400 [facility] Comment on above: Performed By: #### L [id number] ####[facility] ([facility])[address] [address] RBC (Bld) [#/Vol] 5.10 10*6/uL Normal 4.20-5.70 [facility] Comment on above: Performed By: #### L [id number] ####[facility] ([facility])[address] [address] WBC (Bld) [#/Vol] 7.25 10*3/uL Normal 4.00-10.60 [facility] Comment on above: Performed By: #### L [id number] ####[facility] ([facility])[address] [place] [address] MAGNESIUMon 08-26-2024 Magnesium [Mass/Vol] 1.8 mg/dL Low 1.9-2.7 [facility] Comment on above: Performed By: #### L [id number] ####[facility] ([facility])[address] [place] [address] POCT GLUCOSE METER UNSOLICIT ED RESULTSon 08-26-2024 Glucose [Mass/Vol] 246 mg/dL High 70-105 [facility] Comment on above: Order Comment: Waive d Testing in the ED is performed under the ED CLIA certificate #[id number]. Result Comment: [email or web address] [id number] Performed By: #### L [id number] ####[facility] ([facility])[address] [place] [address] Glucose [Mass/Vol] 204 mg/dL High 70-105 [facility] Comment on above: Order Comment: Waive d Testing in the ED is performed under the ED CLIA certificate #[id number]. Result Comment: [email or web address] Performed By: #### L [id number] ####[facility] ([facility])[address] [place] [address] Glucose [Mass/Vol] 219 mg/dL High 70-105 [facility] Comment on above: Order Comment: Waive d Testing in the ED is performed under the ED CLIA certificate #[id number]. Result Comment: [email or web address] Performed By: #### L [id number] ####[facility] ([facility])[address] [place] [address] Glucose [Mass/Vol] 163 mg/dL High 70-105 [facility] Comment on above: Order Comment: Waive d Testing in the ED is performed under the ED CLIA certificate #[id number]. Result Comment: [email or web address] Performed By: #### L [id number] ####NEW [facility] (BEAKER)[address] [place] [address] 30on 08-25-2024 30 Normal [facility] BASIC METABOLIC PANELon 02-0 Anion gap [Moles/Vol] 10 mmol/L Normal 7-20 [facility] Comment on above: Performed By: #### L [id number] ####[facility] (BEAKER)[address] [place] [address] Calcium [Mass/Vol] 9.5 mg/dL Normal 8.6-10.3 [facility] Comment on above: Performed By: #### L [id number] ####[facility] (BEAKER)[address] [place] [address] Chloride [Moles/Vol] 97 mmol/L Low 98-107 [facility] Comment on above: Performed By: #### L [id number] ####[facility] (BEAKER)[address] [place] [address] CO2 [Moles/Vol] 34 mmol/L High 21-31 [facility] Comment on above: Performed By: #### L [id number] ####[facility] (BEAKER)[address] [place] [address] Creatinine [Mass/Vol] 0.87 mg/dL Normal 0.70-1.30 [facility] Comment on above: Performed By: #### L [id number] ####[facility] (BEAKER)[address] [place] [address] GLOMERULAR FILTRATION RATE ML/MIN/1.73 SQ M.PREDICTED 95.8 mL/min/1.73m*2 Normal >60.0 [facility] Comment on above: Result Comment: The [facility]???s estimated glomerular filtration rate (eGFR) will [...] of individuals. Performed By: #### L [id number] ####[facility] ([facility])[address] [place] [address] Glucose [Mass/Vol] 178 mg/dL High 70-100 [facility] Comment on above: Performed By: #### L [id number] ####[facility] ([facility])[address] [place] [address] Potassium [Moles/Vol] 3.5 mmol/L Normal 3.5-5.1 [facility] Comment on above: Performed By: #### L [id number] ####[facility] ([facility])[address] [place] [address] Sodium [Moles/Vol] 137 mmol/L Normal 136-145 [facility] Comment on above: Performed By: #### L [id number] ####[facility] ([facility])[address] [place] [address] Urea nitrogen [Mass/Vol] 20 mg/dL Normal 7-25 [facility] Comment on above: Performed By: #### L [id number] ####[facility] ([facility])[address] [place] [address] UREA NITROGEN/CREATININE (MASS RATIO) IN SER/PLAS 23.0 Normal [facility] Comment on above: Performed By: #### L [id number] ####[facility] ([facility])[address] [place] [address] CBC WITH AUTO DIFFERENTIALon 08-25-2024 Basophils (Bld) [#/Vol] 0.04 10*3/uL Normal 0.00-0.20 [facility] Comment on above: Performed By: #### L [id number] ####[facility] ([facility])[address] [place] [address] Basophils/100 WBC (Bld) 0.6 % Normal 0.0-1.0 [facility] Comment on above: Performed By: #### L [id number] ####[facility] ([facility])[address] [place] [address] Eosinophils (Bld) [#/Vol] 0.22 10*3/uL Normal 0.00-0.50 [facility] Comment on above: Performed By: #### L [id number] ####[facility] (BEAKER)[address] [place] [address] Eosinophils/100 WBC (Bld) 3.1 % Normal 0.0-6.0 [facility] Comment on above: Performed By: #### L [id number] ####[facility] ([facility])[address] [place] [address] Erythrocyte distribution width (RBC) [Ratio] 14.6 % Normal 11.5-15.0 [facility] Comment on above: Performed By: #### L [id number] ####[facility] ([facility])[address] [place] [address] ERYTHROCYTE MEAN CORPUSCULAR HEMOGLOBIN CONCENTRATION (G/DL) BY AUTOMATED 30.6 g/dL Low 32.0-35.0 [facility] Comment on above: Performed By: #### L [id number] ####[facility] ([facility])[address] [place] [address] Hematocrit (Bld) [Volume fraction] 49.4 % Normal 39.0-55.0 [facility] Comment on above: Performed By: #### L [id number] ####[facility] ([facility])[address] [place] [address] Hemoglobin (Bld) [Mass/Vol] 15.1 g/dL Normal 13.0-17.0 [facility] Comment on above: Performed By: #### L [id number] ####[facility] ([facility])[address] [place] [address] Immature granulocytes (Bld) [#/Vol] 0.04 10*3/uL Normal 0.00-0.20 [facility] Comment on above: Performed By: #### L [id number] ####[facility] (BEAKER)[address] [place] [address] Immature granulocytes/100 WBC (Bld) 0.6 % Normal 0.0-1.0 [facility] Comment on above: Performed By: #### L [id number] ####[facility] ([facility])[address] [place] [address] Lymphocytes (Bld) [#/Vol] 1.08 10*3/uL Low 1.20-4.00 [facility] Comment on above: Performed By: #### L [id number] ####[facility] ([facility])[address] [place] [address] Lymphocytes/100 WBC (Bld) 15.1 % Low 20.0-45.0 [facility] Comment on above: Performed By: #### L [id number] ####[facility] ([facility])[address] [place] [address] MCH (RBC) [Entitic mass] 28.9 pg Normal 27.0-33.0 [facility] Comment on above: Performed By: #### L [id number] ####[facility] ([facility])[address] [place] [address] MCV (RBC) [Entitic vol] 94.6 fL Normal 82.0-98.0 [facility] Comment on above: Performed By: #### L [id number] ####[facility] (BEAKER)[address] [place] [address] Monocytes (Bld) [#/Vol] 0.94 10*3/uL Normal 0.10-1.00 [facility] Comment on above: Performed By: #### L [id number] ####[facility] (BEAKER)[address] [place] [address] Monocytes/100 WBC (Bld) 13.1 % High 5.0-12.0 [facility] Comment on above: Performed By: #### L [id number] ####[facility] (BEAKER)[address] [place] [address] Neutrophils (Bld) [#/Vol] 4.85 10*3/uL Normal 1.60-7.60 [facility] Comment on above: Performed By: #### L [id number] ####[facility] ([facility])[address] [address] Neutrophils/100 WBC (Bld) 67.5 % Normal 40.0-72.0 [facility] Comment on above: Performed By: #### L [id number] ####[facility] ([facility])[address] [address] NRBC (PER 100 WBCS) BY AUTOMATED COUNT 0.0 % Normal 0 [facility] Comment on above: Performed By: #### L [id number] ####[facility] ([facility])[address] [address] PLATELETS (10*3/UL) IN BLOOD AUTOMATED COUNT 200 10*3/uL Normal 150-400 [facility] Comment on above: Performed By: #### L [id number] ####[facility] ([facility])[address] [place], [place] [address] RBC (Bld) [#/Vol] 5.22 10*6/uL Normal 4.20-5.70 [facility] Comment on above: Performed By: #### L [id number] ####[facility] ([facility])[address] [place] [address] WBC (Bld) [#/Vol] 7.17 10*3/uL Normal 4.00-10.60 [facility] Comment on above: Performed By: #### L [id number] ####[facility] ([facility])[address] [place] [address] MAGNESIUMon 08-25-2024 Magnesium [Mass/Vol] 1.6 mg/dL Low 1.9-2.7 [facility] Comment on above: Performed By: #### L [id number] ####[facility] ([facility])[address] [place] [address] POCT GLUCOSE METER UNSOLICIT ED RESULTSon 02-05-2025 Glucose [Mass/Vol] 154 mg/dL High 70-105 [facility] Comment on above: Order Comment: Waive d Testing in the ED is performed under the ED CLIA certificate #[id number]. Result Comment: [email or web address] Performed By: #### L [id number] ####[facility] (BEAKER)[address] [facility] [place] [address] Glucose [Mass/Vol] 196 mg/dL High 70-105 [facility] Comment on above: Order Comment: Waive d Testing in the ED is performed under the ED CLIA certificate #[id number]. Result Comment: [email or web address] [email or web address] Performed By: #### L [id number] ####[facility] ([facility])[address] [facility] [place] [address] Glucose [Mass/Vol] 313 mg/dL High 70-105 [facility] Comment on above: Order Comment: Waive d Testing in the ED is performed under the ED CLIA certificate #[id number]. Result Comment: ndub ois3 Performed By: #### L [id number] ####[facility] ([facility])[address] [place] [address] Glucose [Mass/Vol] 164 mg/dL High 70-105 [facility] Comment on above: Order Comment: Waive d Testing in the ED is performed under the ED CLIA certificate #[id number]. Result Comment: ndub [email or web address] Performed By: #### L [id number] ####[facility] ([facility])[address] [facility] [place] [address] 30on 08-24-2024 30 Normal [facility] ANTI-XA (HEPARIN LEVEL)on HEPARIN UNFRACTIONATED (U/ML) IN PPP BY CHROMOGENIC METHOD 0.21 IU/mL Low 0.3-0.7 [facility] Comment on above: Result Comment: Tatyana roxaban and Apixaban will interfere with the anti Xa assay used to monitor UFH and LMWH. Performed By: #### L [id number] ####[facility] ([facility])[address] [facility] [place] [address] B-TYPE NATRIURETIC PEPTIDEon 08-24-2024 Natriuretic peptide B (Bld) [Mass/Vol] 143 pg/mL High 0-100 [facility] Comment on above: Performed By: #### L [id number] ####[facility] (BEAKER)[address] [place] [address] BASIC METABOLIC PANELon Anion gap [Moles/Vol] 11 mmol/L Normal 7-20 [facility] Comment on above: Performed By: #### L [id number] ####[facility] (BEAKER)[address] [place] [address] Calcium [Mass/Vol] 9.7 mg/dL Normal 8.6-10.3 [facility] Comment on above: Performed By: #### L [id number] ####[facility] (BEAKER)[address] [place] [address] Chloride [Moles/Vol] 98 mmol/L Normal 98-107 [facility] Comment on above: Performed By: #### L [id number] ####[facility] (BEAKER)[address] [place] [address] CO2 [Moles/Vol] 33 mmol/L High 21-31 [facility] Comment on above: Performed By: #### L [id number] ####[facility] (BEAKER)[address] [place] [address] Creatinine [Mass/Vol] 0.93 mg/dL Normal 0.70-1.30 [facility] Comment on above: Performed By: #### L [id number] ####[facility] (BEAKER)[address] [place] [address] GLOMERULAR FILTRATION RATE ML/MIN/1.73 SQ M.PREDICTED 91.1 mL/min/1.73m*2 Normal >60.0 [facility] Comment on above: Result Comment: [facility]???s estimated glomerular filtration rate (eGFR) will [...] of individuals. Performed By: #### L [id number] ####[facility] ([facility])[address] [place] [address] Glucose [Mass/Vol] 166 mg/dL High 70-100 [facility] Comment on above: Performed By: #### L [id number] ####[facility] ([facility])[address] [place] [address] Potassium [Moles/Vol] 3.8 mmol/L Normal 3.5-5.1 [facility] Comment on above: Performed By: #### L [id number] ####[facility] ([facility])[address] [place] [address] Sodium [Moles/Vol] 138 mmol/L Normal 136-145 [facility] Comment on above: Performed By: #### L [id number] ####[facility] ([facility])[address] [place] [address] Urea nitrogen [Mass/Vol] 23 mg/dL Normal 7-25 [facility] Comment on above: Performed By: #### L [id number] ####[facility] ([facility])[address] [place] [address] UREA NITROGEN/CREATININE (MASS RATIO) IN SER/PLAS 24.7 Normal [facility] Comment on above: Performed By: #### L [id number] ####[facility] ([facility])[address] [place] [address] Anion gap [Moles/Vol] 10 mmol/L Normal 7-[address] [facility] Comment on above: Performed By: #### L [id number] ####[facility] ([facility])[address] [place] [address] Calcium [Mass/Vol] 9.4 mg/dL Normal 8.6-10.3 [facility] Comment on above: Performed By: #### L [id number] ####[facility] ([facility])[address] [place] [address] Chloride [Moles/Vol] 98 mmol/L Normal 98-107 [facility] Comment on above: Performed By: #### L [id number] ####[facility] ([facility])[address] [place] [address] CO2 [Moles/Vol] 33 mmol/L High 21-31 [facility] Comment on above: Performed By: #### L [id number] ####[facility] ([facility])[address] [place] [address] Creatinine [Mass/Vol] 0.88 mg/dL Normal 0.70-1.30 [facility] Comment on above: Performed By: #### L [id number] ####[facility] ([facility])[address] [place] [address] GLOMERULAR FILTRATION RATE ML/MIN/1.73 SQ M.PREDICTED 95.4 mL/min/1.73m*2 Normal >60.0 [facility] Comment on above: Result Comment: [facility]???s estimated glomerular filtration rate (eGFR) will [...] of individuals. Performed By: #### L [id number] ####[facility] ([facility])[address] [place] [address] Glucose [Mass/Vol] 132 mg/dL High 70-100 [facility] Comment on above: Performed By: #### L [id number] ####[facility] ([facility])[address] [place] [address] Potassium [Moles/Vol] 2.9 mmol/L Invalid Interpretation Code 3.5-5.1 [facility] Comment on above: Performed By: #### L [id number] ####[facility] ([facility])[address] [place] [address] Sodium [Moles/Vol] 138 mmol/L Normal 136-145 [facility] Comment on above: Performed By: #### L [id number] ####[facility] ([facility])[address] [place] [address] Urea nitrogen [Mass/Vol] 24 mg/dL Normal 7-25 [facility] Comment on above: Performed By: #### L [id number] ####[facility] ([facility])[address] [place] [address] UREA NITROGEN/CREATININE (MASS RATIO) IN SER/PLAS 27.3 Normal [facility] Comment on above: Performed By: #### L [id number] ####[facility] ([facility])[address] [place] [address] CBC WITH AUTO DIFFERENTIALon 08-24-2024 Basophils (Bld) [#/Vol] 0.06 10*3/uL Normal 0.00-0.20 [facility] Comment on above: Performed By: #### L [id number] ####[facility] ([facility])[address] [place] [address] Basophils/100 WBC (Bld) 0.8 % Normal 0.0-1.0 [facility] Comment on above: Performed By: #### L [id number] ####[facility] ([facility])[address] [place] [address] Eosinophils (Bld) [#/Vol] 0.46 10*3/uL Normal 0.00-0.50 [facility] Comment on above: Performed By: #### L [id number] ####[facility] ([facility])[address] [place] [address] Eosinophils/100 WBC (Bld) 5.9 % Normal 0.0-6.0 [facility] Comment on above: Performed By: #### L [id number] ####[facility] ([facility])[address] [place] [address] Erythrocyte distribution width (RBC) [Ratio] 14.7 % Normal 11.5-15.0 [facility] Comment on above: Performed By: #### L [id number] ####[facility] ([facility])[address] [place] [address] ERYTHROCYTE MEAN CORPUSCULAR HEMOGLOBIN CONCENTRATION (G/DL) BY AUTOMATED 31.3 g/dL Low 32.0-35.0 [facility] Comment on above: Performed By: #### L [id number] ####[facility] ([facility])[address] [place] [address] Hematocrit (Bld) [Volume fraction] 50.8 % Normal 39.0-55.0 [facility] Comment on above: Performed By: #### L [id number] ####[facility] ([facility])[address] [place] [address] Hemoglobin (Bld) [Mass/Vol] 15.9 g/dL Normal 13.0-17.0 [facility] Comment on above: Performed By: #### L [id number] ####[facility] ([facility])[address] [place] [address] Immature granulocytes (Bld) [#/Vol] 0.04 10*3/uL Normal 0.00-0.20 [facility] Comment on above: Performed By: #### L [id number] ####[facility] ([facility])[address] [place] [address] Immature granulocytes/100 WBC (Bld) 0.5 % Normal 0.0-1.0 [facility] Comment on above: Performed By: #### L [id number] ####[facility] ([facility])[address] [place] [address] Lymphocytes (Bld) [#/Vol] 1.23 10*3/uL Normal 1.20-4.00 [facility] Comment on above: Performed By: #### L [id number] ####[facility] (BE[facility])[address] [place] [address] Lymphocytes/100 WBC (Bld) 15.8 % Low 20.0-45.0 [facility] Comment on above: Performed By: #### L [id number] ####[facility] ([facility])[address] [place] [address] MCH (RBC) [Entitic mass] 29.1 pg Normal 27.0-33.0 [facility] Comment on above: Performed By: #### L [id number] ####[facility] ([facility])[address] [place] [address] MCV (RBC) [Entitic vol] 92.9 fL Normal 82.0-98.0 [facility] Comment on above: Performed By: #### L [id number] ####[facility] ([facility])[address] [place] [address] Monocytes (Bld) [#/Vol] 0.96 10*3/uL Normal 0.10-1.00 [facility] Comment on above: Performed By: #### L [id number] ####[facility] (BE[facility])[address] [place] [address] Monocytes/100 WBC (Bld) 12.4 % High 5.0-12.0 [facility] Comment on above: Performed By: #### L [id number] ####[facility] (BE[facility])[address] [place] [address] Neutrophils (Bld) [#/Vol] 5.02 10*3/uL Normal 1.60-7.60 [facility] Comment on above: Performed By: #### L [id number] ####[facility] ([facility])[address] [place] [address] Neutrophils/100 WBC (Bld) 64.6 % Normal 40.0-72.0 [facility] Comment on above: Performed By: #### L [id number] ####[facility] ([facility])[address] [place] [address] NRBC (PER 100 WBCS) BY AUTOMATED COUNT 0.0 % Normal 0 [facility] Comment on above: Performed By: #### L [id number] ####[facility] ([facility])[address] [place] [address] PLATELETS (10*3/UL) IN BLOOD AUTOMATED COUNT 194 10*3/uL Normal 150-400 [facility] Comment on above: Performed By: #### L [id number] ####[facility] ([facility])[address] [place] [address] RBC (Bld) [#/Vol] 5.47 10*6/uL Normal 4.20-5.70 [facility] Comment on above: Performed By: #### L [id number] ####[facility] ([facility])[address] [place] [address] WBC (Bld) [#/Vol] 7.77 10*3/uL Normal 4.00-10.60 [facility] Comment on above: Performed By: #### L [id number] ####[facility] ([facility])[address] [place] [address] CONSULTon 08-24-2024 CONSULT Normal [facility] CT HEAD WO IV CONTRASTon CT HEAD WO IV CONTRAST Invalid Interpretation Code [facility] CTA CHEST W IV CONTRASTon CTA CHEST W IV CONTR[facility]NESI[facility] 08-24-2024 Magnesium [Mass/Vol] 1.7 mg/dL Low 1.9-2.7 [facility] Comment on above: Performed By: #### L [id number] ####[facility] ([facility])[address] [place] [address] Magnesium [Mass/Vol] 1.4 mg/dL Low 1.9-2.7 [facility] Comment on above: Performed By: #### L [id number] ####[facility] ([facility])[address] [place] [address] NURSNOTEon 08-24-2024 NURSNOTE Normal [facility] NURSNOTE Normal [facility] PHOSPHORUSon 08-24-2024 Magnesium [Mass/Vol] 3.4 mg/dL Normal 2.5-5.0 [facility] Comment on above: Performed By: #### L [id number] ####[facility] ([facility])[address] [place] [address] POCT GLUCOSE METER UNSOLICIT ED RESULTSon 08-24-2024 Glucose [Mass/Vol] 182 mg/dL High 70-105 [facility] Comment on above: Order Comment: Waive d Testing in the ED is performed under the ED CLIA certificate #[id number]. Result Comment: droc kol Performed By: #### L [id number] ####[facility] ([facility])[address] [place] [address] Glucose [Mass/Vol] 166 mg/dL High 70-105 [facility] Comment on above: Order Comment: Waive d Testing in the ED is performed under the ED CLIA certificate #[id number]. Result Comment: sbel cad Performed By: #### L [id number] ####[facility] ([facility])[address] [place] [address] Glucose [Mass/Vol] 150 mg/dL High 70-105 [facility] Comment on above: Order Comment: Waive d Testing in the ED is performed under the ED CLIA certificate #[id number]. Result Comment: besc obe Performed By: #### L [id number] ####[facility] ([facility])[address] [place] [address] Glucose [Mass/Vol] 136 mg/dL High 70-105 [facility] Comment on above: Order Comment: Waive d Testing in the ED is performed under the ED CLIA certificate #[id number]. Result Comment: [email or web address] [id number] Value Noted Performed By: #### L [id number] ####[facility] (BEAKER)[address] [place] [address] BASIC METABOLIC PANELon 02-0 Anion gap [Moles/Vol] 10 mmol/L Normal 7-20 [facility] Comment on above: Performed By: #### L [id number] ####[facility] ([facility])[address] [place] [address] Calcium [Mass/Vol] 9.8 mg/dL Normal 8.6-10.3 [facility] Comment on above: Performed By: #### L [id number] ####[facility] ([facility])[address] [place] [address] Chloride [Moles/Vol] 99 mmol/L Normal 98-107 [facility] Comment on above: Performed By: #### L [id number] ####[facility] ([facility])[address] [place] [address] CO2 [Moles/Vol] 33 mmol/L High 21-31 [facility] Comment on above: Performed By: #### L [id number] ####[facility] ([facility])[address] [place] [address] Creatinine [Mass/Vol] 0.94 mg/dL Normal 0.70-1.30 [facility] Comment on above: Performed By: #### L [id number] ####[facility] ([facility])[address] [place] [address] GLOMERULAR FILTRATION RATE ML/MIN/1.73 SQ M.PREDICTED 90.0 mL/min/1.73m*2 Normal >60.0 [facility] Comment on above: Result Comment: [facility]???s estimated glomerular filtration rate (eGFR) will [...] of individuals. Performed By: #### L [id number] ####[facility] ([facility])[address] [place] [address] Glucose [Mass/Vol] 274 mg/dL High 70-100 [facility] Comment on above: Performed By: #### L [id number] ####[facility] ([facility])[address] [place] [address] Potassium [Moles/Vol] 3.8 mmol/L Normal 3.5-5.1 [facility] Comment on above: Performed By: #### L [id number] ####[facility] ([facility])[address] [place] [address] Sodium [Moles/Vol] 138 mmol/L Normal 136-145 [facility] Comment on above: Performed By: #### L [id number] ####[facility] ([facility])[address] [place] [address] Urea nitrogen [Mass/Vol] 31 mg/dL High 7-25 [facility] Comment on above: Performed By: #### L [id number] ####[facility] ([facility])[address] [place] [address] UREA NITROGEN/CREATININE (MASS RATIO) IN SER/PLAS 33.0 Normal [facility] Comment on above: Performed By: #### L [id number] ####[facility] [facility] [place] [address] CBC WITH AUTO DIFFERENTIALon 08-23-2024 Basophils (Bld) [#/Vol] 0.06 10*3/uL Normal 0.00-0.20 [facility] Comment on above: Performed By: #### L [id number] ####[facility] ([facility])[address] [place] [address] Basophils/100 WBC (Bld) 0.9 % Normal 0.0-1.0 [facility] Comment on above: Performed By: #### L [id number] ####[facility] ([facility])[address] [place] [address] Eosinophils (Bld) [#/Vol] 0.34 10*3/uL Normal 0.00-0.50 [facility] Comment on above: Performed By: #### L [id number] ####[facility] ([facility])[address] [place] [address] Eosinophils/100 WBC (Bld) 4.8 % Normal 0.0-6.0 [facility] Comment on above: Performed By: #### L [id number] ####[facility] ([facility])[address] [place] [address] Erythrocyte distribution width (RBC) [Ratio] 14.7 % Normal 11.5-15.0 [facility] Comment on above: Performed By: #### L [id number] ####[facility] ([facility])[address] [place] [address] ERYTHROCYTE MEAN CORPUSCULAR HEMOGLOBIN CONCENTRATION (G/DL) BY AUTOMATED 31.8 g/dL Low 32.0-35.0 [facility] Comment on above: Performed By: #### L [id number] ####[facility] ([facility])[address] [place] [address] Hematocrit (Bld) [Volume fraction] 52.5 % Normal 39.0-55.0 [facility] Comment on above: Performed By: #### L [id number] ####[facility] ([facility])[address] [place] [address] Hemoglobin (Bld) [Mass/Vol] 16.7 g/dL Normal 13.0-17.0 [facility] Comment on above: Performed By: #### L [id number] ####[facility] ([facility])[address] [place] [address] Immature granulocytes (Bld) [#/Vol] 0.05 10*3/uL Normal 0.00-0.20 [facility] Comment on above: Performed By: #### L [id number] ####[facility] ([facility])[address] [place] [address] Immature granulocytes/100 WBC (Bld) 0.7 % Normal 0.0-1.0 [facility] Comment on above: Performed By: #### L [id number] ####[facility] ([facility])[address] [place] [address] Lymphocytes (Bld) [#/Vol] 1.15 10*3/uL Low 1.20-4.00 [facility] Comment on above: Performed By: #### L [id number] ####[facility] ([facility])[address] [place] [address] Lymphocytes/100 WBC (Bld) 16.4 % Low 20.0-45.0 [facility] Comment on above: Performed By: #### L [id number] ####[facility] ([facility])[address] [place] [address] MCH (RBC) [Entitic mass] 29.0 pg Normal 27.0-33.0 [facility] Comment on above: Performed By: #### L [id number] ####[facility] ([facility])[address] [place] [address] MCV (RBC) [Entitic vol] 91.1 fL Normal 82.0-98.0 [facility] Comment on above: Performed By: #### L [id number] ####[facility] ([facility])[address] [place] [address] Monocytes (Bld) [#/Vol] 0.85 10*3/uL Normal 0.10-1.00 [facility] Comment on above: Performed By: #### L [id number] ####[facility] ([facility])[address] [place] [address] Monocytes/100 WBC (Bld) 12.1 % High 5.0-12.0 [facility] Comment on above: Performed By: #### L [id number] ####[facility] ([facility])[address] [place] [address] Neutrophils (Bld) [#/Vol] 4.58 10*3/uL Normal 1.60-7.60 [facility] Comment on above: Performed By: #### L [id number] ####[facility] ([facility])[address] [place] [address] Neutrophils/100 WBC (Bld) 65.1 % Normal 40.0-72.0 [facility] Comment on above: Performed By: #### L [id number] ####[facility] ([facility])[address] [address] NRBC (PER 100 WBCS) BY AUTOMATED COUNT 0.0 % Normal 0 [facility] Comment on above: Performed By: #### L [id number] ####[facility] ([facility])[address] [place], [place] [address] PLATELETS (10*3/UL) IN BLOOD AUTOMATED COUNT 190 10*3/uL Normal 150-400 [facility] Comment on above: Performed By: #### L [id number] ####[facility] ([facility])[address] [place], [place] [address] RBC (Bld) [#/Vol] 5.76 10*6/uL High 4.20-5.70 [facility] Comment on above: Performed By: #### L [id number] ####[facility] ([facility])[address] [place], [place] [address] WBC (Bld) [#/Vol] 7.03 10*3/uL Normal 4.00-10.60 [facility] Comment on above: Performed By: #### L [id number] ####[facility] ([facility])[address] [place], [place] [address] CONSULTon 08-23-2024 CONSULT Normal [facility] LIPID PANELon 08-23-2024 CHOL/HDL 7.8 mg/dL Normal [facility] Comment on above: Performed By: #### L [id number] ####[facility] ([facility])[address] [place] [address] Cholesterol [Mass/Vol] 195 mg/dL Normal 120-200 [facility] Comment on above: Performed By: #### L [id number] ####[facility] ([facility])[address] [facility] [place] [address] Magnesium [Mass/Vol] 177 mg/dL High 40-149 [facility] Comment on above: Result Comment: TRIG LYCERIDE REFERENCE RANGE:20 YEARS AND OLDER CARDIOVASCULAR RISKLESS THAN 150 mg/dL LOW [id number] TO 199 mg/dL BORDERLINE [id number] mg/dL AND GREATER HIGH RISK Performed By: #### L [id number] ####[facility] ([facility])[address] [place] [address] Magnesium [Mass/Vol] 135 mg/dL Normal 0-160 [facility] Comment on above: Performed By: #### L [id number] ####[facility] ([facility] [place] [address] Magnesium [Mass/Vol] 25 mg/dL Normal 23-92 [facility] Comment on above: Performed By: #### L [id number] ####[facility] ([facility])[address] [place] [address] NON HDL CHOL. (LDL+VLDL) 170 Normal [facility] Comment on above: Performed By: #### L [id number] ####[facility] ([facility])[address] [place] [address] TOTAL VLDL-C 35 mg/dL Normal 0-40 [facility] Comment on above: Performed By: #### L [id number] ####[facility] ([facility])[address] [place] [address] POCT GLUCOSE METER UNSOLICIT ED RESULTSon 08-23-2024 Glucose [Mass/Vol] 169 mg/dL High 70-105 [facility] Comment on above: Order Comment: Waive d Testing in the ED is performed under the ED CLIA certificate #[id number]. Result Comment: enoch tti Performed By: #### L [id number] ####[facility] ([facility])[address] [facility] [place] [address] Glucose [Mass/Vol] 183 mg/dL High 70-105 [facility] Comment on above: Order Comment: Waive d Testing in the ED is performed under the ED CLIA certificate #[id number]. Result Comment: ezab ors2 Performed By: #### L [id number] ####[facility] ([facility])[address] [place] [address] Glucose [Mass/Vol] 283 mg/dL High 70-105 [facility] Comment on above: Order Comment: Waive d Testing in the ED is performed under the ED CLIA certificate #[id number]. Result Comment: ezab ors2 Performed By: #### L [id number] ####[facility] ([facility])[address] [facility] [address] Glucose [Mass/Vol] 258 mg/dL High 70-105 [facility] Comment on above: Order Comment: Waive d Testing in the ED is performed under the ED CLIA certificate #[id number]. Result Comment: tful ks2 Performed By: #### L [id number] ####[facility] ([facility])[address] [facility] [address] 30on 08-22-2024 30 Normal [facility] ANTI-XA (HEPARIN LEVEL)on HEPARIN UNFRACTIONATED (U/ML) IN PPP BY CHROMOGENIC METHOD 0.31 IU/mL Normal 0.3-0.7 [facility] Comment on above: Result Comment: [place] roxaban and Apixaban will interfere with the anti Xa assay used to monitor UFH and LMWH. Performed By: #### L [id number] ####[facility] ([facility])[address] [facility] [place] [address] BASIC METABOLIC PANELon Anion gap [Moles/Vol] 10 mmol/L Normal 7-20 [facility] Comment on above: Performed By: #### L [id number] ####[facility] ([facility])[address] [facility] [place] [address] Calcium [Mass/Vol] 9.6 mg/dL Normal 8.6-10.3 [facility] Comment on above: Performed By: #### L [id number] ####[facility] ([facility])[address] [place] [address] Chloride [Moles/Vol] 102 mmol/L Normal 98-107 [facility] Comment on above: Performed By: #### L [id number] ####[facility] ([facility])[address] [place] [address] CO2 [Moles/Vol] 32 mmol/L High 21-31 [facility] Comment on above: Performed By: #### L [id number] ####[facility] ([facility])[address] [facility] [place] [address] Creatinine [Mass/Vol] 1.01 mg/dL Normal 0.70-1.30 [facility] Comment on above: Performed By: #### L [id number] ####[facility] ([facility])[address] [place] [address] GLOMERULAR FILTRATION RATE ML/MIN/1.73 SQ M.PREDICTED 82.5 mL/min/1.73m*2 Normal >60.0 [facility] Comment on above: Result Comment: The [facility]???s estimated glomerular filtration rate (eGFR) will [...] of individuals. Performed By: #### L [id number] ####[facility] ([facility])[address] [place] [address] Glucose [Mass/Vol] 263 mg/dL High 70-100 [facility] Comment on above: Performed By: #### L [id number] ####[facility] ([facility])[address] [place] [address] Potassium [Moles/Vol] 3.7 mmol/L Normal 3.5-5.[address] [facility] Comment on above: Performed By: #### L [id number] ####[facility] ([facility])[address] [place] [address] Sodium [Moles/Vol] 140 mmol/L Normal 136-145 [facility] Comment on above: Performed By: #### L [id number] ####[facility] ([facility])[address] [place] [address] Urea nitrogen [Mass/Vol] 33 mg/dL High 7- [facility] Comment on above: Performed By: #### L [id number] ####[facility] ([facility])[address] [place] [address] UREA NITROGEN/CREATININE (MASS RATIO) IN SER/PLAS 32.7 Normal [facility] Comment on above: Performed By: #### L [id number] ####[facility] ([facility])[address] [place] [address] CBC WITH AUTO DIFFERENTIALon 08-22-2024 Basophils (Bld) [#/Vol] 0.05 10*3/uL Normal 0.00-0.20 [facility] Comment on above: Performed By: #### L [id number] ####[facility] ([facility])[address] [place] [address] Basophils/100 WBC (Bld) 0.5 % Normal 0.0-1.0 [facility] Comment on above: Performed By: #### L [id number] ####[facility] ([facility])[address] [place] [address] Eosinophils (Bld) [#/Vol] 0.36 10*3/uL Normal 0.00-0.50 [facility] Comment on above: Performed By: #### L [id number] ####[facility] ([facility])[address] [place] [address] Eosinophils/100 WBC (Bld) 3.9 % Normal 0.0-6.0 [facility] Comment on above: Performed By: #### L [id number] ####[facility] ([facility])[address] [place] [address] Erythrocyte distribution width (RBC) [Ratio] 14.7 % Normal 11.5-15.0 [facility] Comment on above: Performed By: #### L [id number] ####[facility] ([facility])[address] [place] [address] ERYTHROCYTE MEAN CORPUSCULAR HEMOGLOBIN CONCENTRATION (G/DL) BY AUTOMATED 30.8 g/dL Low 32.0-35.0 [facility] Comment on above: Performed By: #### L [id number] ####[facility] ([facility])[address] [place] [address] Hematocrit (Bld) [Volume fraction] 52.9 % Normal 39.0-55.0 [facility] Comment on above: Performed By: #### L [id number] ####[facility] ([facility])[address] [place] [address] Hemoglobin (Bld) [Mass/Vol] 16.3 g/dL Normal 13.0-17.0 [facility] Comment on above: Performed By: #### L [id number] ####[facility] ([facility])[address] [place] [address] Immature granulocytes (Bld) [#/Vol] 0.07 10*3/uL Normal 0.00-0.20 [facility] Comment on above: Performed By: #### L [id number] ####[facility] ([facility])[address] [place] [address] Immature granulocytes/100 WBC (Bld) 0.7 % Normal 0.0-1.0 [facility] Comment on above: Performed By: #### L [id number] ####[facility] ([facility])[address] [place] [address] Lymphocytes (Bld) [#/Vol] 1.16 10*3/uL Low 1.20-4.00 [facility] Comment on above: Performed By: #### L [id number] ####[facility] ([facility])[address] [address] Lymphocytes/100 WBC (Bld) 12.4 % Low 20.0-45.0 [facility] Comment on above: Performed By: #### L [id number] ####[facility] ([facility])[address] [address] MCH (RBC) [Entitic mass] 28.8 pg Normal 27.0-33.0 [facility] Comment on above: Performed By: #### L [id number] ####[facility] ([facility])[address] [place], [place] [address] MCV (RBC) [Entitic vol] 93.5 fL Normal 82.0-98.0 [facility] Comment on above: Performed By: #### L [id number] ####[facility] ([facility])[address] [place] [address] Monocytes (Bld) [#/Vol] 1.21 10*3/uL High 0.10-1.00 [facility] Comment on above: Performed By: #### L [id number] ####[facility] ([facility])[address] [place] [address] Monocytes/100 WBC (Bld) 12.9 % High 5.0-12.0 [facility] Comment on above: Performed By: #### L [id number] ####[facility] ([facility])[address] [place] [address] Neutrophils (Bld) [#/Vol] 6.50 10*3/uL Normal 1.60-7.60 [facility] Comment on above: Performed By: #### L [id number] ####[facility] ([facility])[address] [place] [address] Neutrophils/100 WBC (Bld) 69.6 % Normal 40.0-72.0 [facility] Comment on above: Performed By: #### L [id number] ####[facility] ([facility])[address] [place] [address] NRBC (PER 100 WBCS) BY AUTOMATED COUNT 0.0 % Normal 0 [facility] Comment on above: Performed By: #### L [id number] ####[facility] ([facility])[address] [place] [address] PLATELETS (10*3/UL) IN BLOOD AUTOMATED COUNT 187 10*3/uL Normal 150-400 [facility] Comment on above: Performed By: #### L [id number] ####[facility] ([facility])[address] [place] [address] RBC (Bld) [#/Vol] 5.66 10*6/uL Normal 4.20-5.70 [facility] Comment on above: Performed By: #### L [id number] ####[facility] ([facility])[address] [place], [place] [address] WBC (Bld) [#/Vol] 9.35 10*3/uL Normal 4.00-10.60 [facility] Comment on above: Performed By: #### L [id number] ####[facility] ([facility])[address] [place] [address] POCT GLUCOSE METER UNSOLICIT ED RESULTSon 08-22-2024 Glucose [Mass/Vol] 256 mg/dL High 70-105 [facility] Comment on above: Order Comment: Waive d Testing in the ED is performed under the ED CLIA certificate #[id number]. Result Comment: ezab ors2 Performed By: #### L [id number] ####[facility] ([facility])[address] [place], [place] [address] Glucose [Mass/Vol] 277 mg/dL High 70-105 [facility] Comment on above: Order Comment: Waive d Testing in the ED is performed under the ED CLIA certificate #[id number]. Result Comment: ezab ors2 Performed By: #### L [id number] ####[facility] ([facility])[address] [place] [address] ANTI-XA (HEPARIN LEVEL)on HEPARIN UNFRACTIONATED (U/ML) IN PPP BY CHROMOGENIC METHOD 0.30 IU/mL Normal 0.3-0.7 [facility] Comment on above: Result Comment: [place] roxaban and Apixaban will interfere with the anti Xa assay used to monitor UFH and LMWH. Performed By: #### L [id number] ####[facility] ([facility])[address] [place] [address] ARTERIAL BLOOD GAS WITH CO-O XIMETRYon 08-21-2024 Base excess Calc (Bld) [Moles/Vol] 6.7 mmol/L High -2.0-3.0 [facility] Comment on above: Performed By: #### L [id number] ####[facility] [id number] [place] [address] [facility] CARBOXYHEMOGLOBIN/HEMOGL OBIN TOTAL % IN BLOOD 2.0 % Normal 0.0-3.0 [facility] Comment on above: Performed By: #### L [id number] ####[facility] [id number] [place] [address] [facility] CO2 (Bld) [Partial pressure] 43 mm[Hg] Normal 35-48 [facility] Comment on above: Performed By: #### L [id number] ####[facility] [id number] [place] [address] [facility] DEOXYGENATED HEMOGLOBIN IN BLOOD 4.9 % Normal 1-5 [facility] Comment on above: Performed By: #### L [id number] ####[facility] [id number] [place] [address] [place] FIO2 50 % Normal [facility] Comment on above: Performed By: #### L [id number] ####[facility] [id number] [place] [address] [facility] HCO3 (Bld) [Moles/Vol] 31.3 mmol/L High 21.0-28.0 [facility] Comment on above: Performed By: #### L [id number] ####[facility] [id number] [place] [address] [facility] Hemoglobin (Bld) [Mass/Vol] 16.5 g/dL Normal 11.7-17.4 [facility] Comment on above: Performed By: #### L [id number] ####[facility] [id number] [place] [address] [facility] METHEMOGLOBIN/100 IN BLOOD 0.7 % Normal 0.0-1.5 [facility] Comment on above: Performed By: #### L [id number] ####[facility] [id number] [place] [address] [facility] Oxygen (Bld) [Partial pressure] 68 mm[Hg] Low 83-100 [facility] Comment on above: Performed By: #### L [id number] ####[facility] [id number] [place] [address] [facility] OXYGEN SATURATION (%) IN ARTERIAL BLOOD 95.0 % Normal 94.0-98.0 [facility] Comment on above: Performed By: #### L [id number] ####[facility] [id number] [place] [address] [facility] OXYGENATED HEMOGLOBIN IN BLOOD 92.4 % Normal 90.0-95.0 [facility] Comment on above: Performed By: #### L [id number] ####[facility] [id number] [place] [address] [facility] pH (Bld) 7.47 [pH] High 7.35-7.45 [facility] Comment on above: Performed By: #### L [id number] ####[facility] [id number] [place] [address] [facility] SOURCE OF OXYGEN Bi-PAP Normal [facility] Comment on above: Performed By: #### L [id number] ####[facility] [id number] [place] [address] [facility] Base excess Calc (Bld) [Moles/Vol] 5.1 mmol/L High -2.0-3.0 [facility] Comment on above: Performed By: #### L [id number] ####[facility] [id number] [facility] [place] [address] [facility] CARBOXYHEMOGLOBIN/HEMOGL OBIN TOTAL % IN BLOOD 1.9 % Normal 0.0-3.0 [facility] Comment on above: Performed By: #### L [id number] ####[facility] [id number] [facility] [place] [address] [facility] CO2 (Bld) [Partial pressure] 46 mm[Hg] Normal 35-48 [facility] Comment on above: Performed By: #### L [id number] ####[facility] [id number] [place] [address] [facility] DEOXYGENATED HEMOGLOBIN IN BLOOD 15.8 % Critically high 1-5 [facility] Comment on above: Performed By: #### L [id number] ####[facility] [id number] [place] [address] [facility] HCO3 (Bld) [Moles/Vol] 30.5 mmol/L High 21.0-28.0 [facility] Comment on above: Performed By: #### L [id number] ####[facility] [id number] [place] [address] [facility] Hemoglobin (Bld) [Mass/Vol] 16.4 g/dL Normal 11.7-17.4 [facility] Comment on above: Performed By: #### L [id number] ####[facility] [id number] [facility] [place] [address] [facility] LPM 15 Normal [facility] Comment on above: Performed By: #### L [id number] ####[facility] [id number] [place] [address] [place] METHEMOGLOBIN/100 IN BLOOD 0.6 % Normal 0.0-1.5 [facility] Comment on above: Performed By: #### L [id number] ####[facility] RESPIRAT[facility] [id number] [place] [address] [facility] Oxygen (Bld) [Partial pressure] 53 mm[Hg] Invalid Interpretation Code 83-100 [facility] Comment on above: Performed By: #### L [id number] ####[facility] RESPIRATORY [id number] [place] [address] [facility] OXYGEN SATURATION (%) IN ARTERIAL BLOOD 83.8 % Invalid Interpretation Code 94.0-98.0 [facility] Comment on above: Performed By: #### L [id number] ####[facility]IR[facility] [id number] [place] [address] [facility] OXYGENATED HEMOGLOBIN IN BLOOD 81.7 % Invalid Interpretation Code 90.0-95.0 [facility] Comment on above: Performed By: #### L [id number] ####[facility] RES[facility] [id number] [place] [address] [facility] pH (Bld) 7.43 [pH] Normal 7.35-7.45 [facility] Comment on above: Performed By: #### L [id number] ####[facility] RESPIRATORY [id number] [place] [address] [facility] SOURCE OF OXYGEN SALTER Normal [facility] Comment on above: Performed By: #### L [id number] ####[facility] RESPIRATORY [id number] [place] [address] [facility] ARTERIAL BLOOD GAS WITH IONI ZED CALCIUMon 08-21-2024 Base excess Calc (Bld) [Moles/Vol] 6.2 mmol/L High -2.0-3.0 [facility] Comment on above: Performed By: #### L [id number] ####[facility] RESPIRATORY [id number] [place] [address] [facility] CALCIUM IONIZED (MMOL/L) IN BLOOD 1.30 mmol/L Normal 1.15-1.33 [facility] Comment on above: Performed By: #### L [id number] ####[facility]PIR[facility] [id number] [place] [address] [facility] CO2 (Bld) [Partial pressure] 45 mm[Hg] Normal 35-48 [facility] Comment on above: Performed By: #### L [id number] ####[facility] RESPIR[facility] [id number] FIO2 50 % Normal [facility] Comment on above: Performed By: #### L [id number] ####[facility] RESPIRATORY [id number] [address] HCO3 (Bld) [Moles/Vol] 31.3 mmol/L High 21.0-28.0 [facility] Comment on above: Performed By: #### L [id number] ####[facility] RESPIRAT[facility] [id number] [address] Oxygen (Bld) [Partial pressure] 70 mm[Hg] Low 83-100 [facility] Comment on above: Performed By: #### L [id number] ####[facility] RESPIRAT[facility] [id number] [address] OXYGEN SATURATION (%) IN ARTERIAL BLOOD 94.9 % Normal 94.0-98.0 [facility] Comment on above: Performed By: #### L [id number] ####[facility] RESPIRAT[facility] [id number] [address] PEEP 8 cmH2O Normal [facility] Comment on above: Performed By: #### L [id number] ####[facility] RESPIR[facility] [id number] [address] pH (Bld) 7.45 [pH] Normal 7.35-7.45 [facility] Comment on above: Performed By: #### L [id number] ####[facility] RESPIR[facility] [id number] [address] PRESSURE SUPPORT 14 Normal [facility] Comment on above: Performed By: #### L [id number] ####[facility] RESPIRATORY [id number] [address] SOURCE OF OXYGEN Bi-PAP Normal [facility] Comment on above: Performed By: #### L [id number] ####[facility] RESPIR[facility] [id number] [address] BASIC METABOLIC PANELon 02-0 Anion gap [Moles/Vol] 11 mmol/L Normal 7-20 [facility] Comment on above: Performed By: #### L [id number] ####[facility] LAB (BEAKER)[address] [place] [address] Calcium [Mass/Vol] 9.4 mg/dL Normal 8.6-10.3 [facility] Comment on above: Performed By: #### L [id number] ####[facility] (BEAKER)[address] [place] [address] Chloride [Moles/Vol] 101 mmol/L Normal 98-107 [facility] Comment on above: Performed By: #### L [id number] ####[facility] ([facility] [place] [address] CO2 [Moles/Vol] 30 mmol/L Normal 21-31 [facility] Comment on above: Performed By: #### L [id number] ####[facility] ([facility])[address] [place] [address] Creatinine [Mass/Vol] 1.05 mg/dL Normal 0.70-1.30 [facility] Comment on above: Performed By: #### L [id number] ####[facility] ([facility])[address] [place] [address] GLOMERULAR FILTRATION RATE ML/MIN/1.73 SQ M.PREDICTED 78.8 mL/min/1.73m*2 Normal >60.0 [facility] Comment on above: Result Comment: [facility]???s estimated glomerular filtration rate (eGFR) will [...] of individuals. Performed By: #### L [id number] ####[facility] ([facility])[address] [place] [address] Glucose [Mass/Vol] 269 mg/dL High 70-100 [facility] Comment on above: Performed By: #### L [id number] ####[facility] ([facility])[address] [place] [address] Potassium [Moles/Vol] 4.0 mmol/L Normal 3.5-5.1 [facility] Comment on above: Performed By: #### L [id number] ####[facility] ([facility])[address] [place] [address] Sodium [Moles/Vol] 138 mmol/L Normal 136-145 [facility] Comment on above: Performed By: #### L [id number] ####[facility] ([facility])[address] [place] [address] Urea nitrogen [Mass/Vol] 35 mg/dL High 7-25 [facility] Comment on above: Performed By: #### L [id number] ####[facility] ([facility])[address] [place] [address] UREA NITROGEN/CREATININE (MASS RATIO) IN SER/PLAS 33.3 Normal [facility] Comment on above: Performed By: #### L [id number] ####[facility] ([facility])[address] [place] [address] CALCIUM, IONIZEDon CALCIUM IONIZED (MMOL/L) IN BLOOD 1.29 mmol/L Normal 1.15-1.33 [facility] Comment on above: Performed By: #### C ALCIUM, IONIZED ####[facility] RESPIRAT[facility] [id number] [place] [address] [place] CBC WITH AUTO DIFFERENTIALon 08-21-2024 Basophils (Bld) [#/Vol] 0.05 10*3/uL Normal 0.00-0.20 [facility] Comment on above: Performed By: #### L [id number] ####[facility] ([facility])[address] [place] [address] Basophils/100 WBC (Bld) 0.6 % Normal 0.0-1.0 [facility] Comment on above: Performed By: #### L [id number] ####[facility] LAB (BEAKER)[address] [place] [address] Eosinophils (Bld) [#/Vol] 0.43 10*3/uL Normal 0.00-0.50 [facility] Comment on above: Performed By: #### L [id number] ####[facility] ([facility])[address] [place] [address] Eosinophils/100 WBC (Bld) 5.2 % Normal 0.0-6.0 [facility] Comment on above: Performed By: #### L [id number] ####[facility] ([facility])[address] [place] [address] Erythrocyte distribution width (RBC) [Ratio] 14.8 % Normal 11.5-15.0 [facility] Comment on above: Performed By: #### L [id number] ####[facility] ([facility])[address] [place] [address] ERYTHROCYTE MEAN CORPUSCULAR HEMOGLOBIN CONCENTRATION (G/DL) BY AUTOMATED 31.1 g/dL Low 32.0-35.0 [facility] Comment on above: Performed By: #### L [id number] ####[facility] (BEAKER)[address] [place] [address] Hematocrit (Bld) [Volume fraction] 52.1 % Normal 39.0-55.0 [facility] Comment on above: Performed By: #### L [id number] ####[facility] (BEAKER)[address] [place] [address] Hemoglobin (Bld) [Mass/Vol] 16.2 g/dL Normal 13.0-17.0 [facility] Comment on above: Performed By: #### L [id number] ####[facility] ([facility])[address] [place] [address] Immature granulocytes (Bld) [#/Vol] 0.06 10*3/uL Normal 0.00-0.20 [facility] Comment on above: Performed By: #### L [id number] ####[facility] (BEAKER)[address] [place] [address] Immature granulocytes/100 WBC (Bld) 0.7 % Normal 0.0-1.0 [facility] Comment on above: Performed By: #### L [id number] ####[facility] (BEAKER)[address] [place] [address] Lymphocytes (Bld) [#/Vol] 1.10 10*3/uL Low 1.20-4.00 [facility] Comment on above: Performed By: #### L [id number] ####[facility] ([facility])[address] [place] [address] Lymphocytes/100 WBC (Bld) 13.3 % Low 20.0-45.0 [facility] Comment on above: Performed By: #### L [id number] ####[facility] (BEAKER)[address] [place] [address] MCH (RBC) [Entitic mass] 29.1 pg Normal 27.0-33.0 [facility] Comment on above: Performed By: #### L [id number] ####[facility] ([facility])[address] [place] [address] MCV (RBC) [Entitic vol] 93.7 fL Normal 82.0-98.0 [facility] Comment on above: Performed By: #### L [id number] ####[facility] (BEAKER)[address] [place] [address] Monocytes (Bld) [#/Vol] 0.92 10*3/uL Normal 0.10-1.00 [facility] Comment on above: Performed By: #### L [id number] ####[facility] (BEAKER)[address] [place] [address] Monocytes/100 WBC (Bld) 11.1 % Normal 5.0-12.0 [facility] Comment on above: Performed By: #### L [id number] ####[facility] ([facility])[address] [place] [address] Neutrophils (Bld) [#/Vol] 5.72 10*3/uL Normal 1.60-7.60 [facility] Comment on above: Performed By: #### L [id number] ####[facility] ([facility])[address] [place] [address] Neutrophils/100 WBC (Bld) 69.1 % Normal 40.0-72.0 [facility] Comment on above: Performed By: #### L [id number] ####[facility] ([facility])[address] [place] [address] NRBC (PER 100 WBCS) BY AUTOMATED COUNT 0.0 % Normal 0 [facility] Comment on above: Performed By: #### L [id number] ####[facility] ([facility])[address] [place] [address] PLATELETS (10*3/UL) IN BLOOD AUTOMATED COUNT 199 10*3/uL Normal 150-400 [facility] Comment on above: Performed By: #### L [id number] ####[facility] ([facility])[address] [place] [address] RBC (Bld) [#/Vol] 5.56 10*6/uL Normal 4.20-5.70 [facility] Comment on above: Performed By: #### L [id number] ####[facility] ([facility])[address] [place] [address] WBC (Bld) [#/Vol] 8.28 10*3/uL Normal 4.00-10.60 [facility] Comment on above: Performed By: #### L [id number] ####[facility] ([facility])[address] [place] [address] CT BRAIN PERFUSIONon 025 CT BRAIN PERFUSION Invalid Interpretation Code [facility] CT HEAD WO IV CONTRASTon CT HEAD WO IV CONTRAST Normal [facility] HEAD W IV CONTRASTon CTA HEAD W IV CONTRAST [facility] NECK W IV CONTRASTon CTA NECK W IV CONTRAST Normal [facility] MAGNESIUMon 08-21-2024 Magnesium [Mass/Vol] 1.8 mg/dL Low 1.9-2.7 [facility] Comment on above: Performed By: #### L [id number] ####[facility] ([facility])[address] [place] [address] MRSA/MSSA DNA NASALon 2024 MRSA DNA Positive Abnormal Negative [facility] Comment on above: Order Comment: Testi [...] preclude nasal colonization. Performed By: #### L [id number] ####[facility] ([employer])[address] [place] [address] MSSA DNA Negative Normal Negative [facility] Comment on above: Order Comment: Testi [...] preclude nasal colonization. Performed By: #### L [id number] ####[facility] ([employer])[address] [place] [address] PHOSPHORUSon 08-21-2024 Magnesium [Mass/Vol] 2.5 mg/dL Normal 2.5-5.0 [facility] Comment on above: Performed By: #### L [id number] ####[facility] ([employer])[address] [place] [address] POCT GLUCOSE METER UNSOLICIT ED RESULTSon 08-21-2024 Glucose [Mass/Vol] 230 mg/dL High 70-105 [facility] Comment on above: Order Comment: Waive d Testing in the ED is performed under the ED CLIA certificate #[id number]. Result Comment: [email or web address] Performed By: #### L [id number] ####[facility] ([facility])[address] [place] [address] Glucose [Mass/Vol] 226 mg/dL High 70-105 [facility] Comment on above: Order Comment: Waive d Testing in the ED is performed under the ED CLIA certificate #[id number]. Result Comment: [email or web address] Performed By: #### L [id number] ####[facility] ([facility])[address] [facility] [place] [address] Glucose [Mass/Vol] 229 mg/dL High 70-105 [facility] Comment on above: Order Comment: Waive d Testing in the ED is performed under the ED CLIA certificate #[id number]. Result Comment: [email or web address] Performed By: #### L [id number] ####[facility] ([facility])[address] [facility] [address] Glucose [Mass/Vol] 234 mg/dL High 70-105 [facility] Comment on above: Order Comment: Waive d Testing in the ED is performed under the ED CLIA certificate #[id number]. Result Comment: [email or web address] Performed By: #### L [id number] ####[facility] ([facility])[address] [place] [address] POTASSIUM, WHOLE BLOODon Potassium [Moles/Vol] 3.3 mmol/L Low 3.5-5.1 [facility] Comment on above: Performed By: #### P OTASSIUM, WHOLE BLOOD ####[facility] RESPIRATORY [id number] [place] [address] [place] SODIUM, WHOLE BLOODon 2024 SODIUM, WHOLE BLOOD 137 Normal 136-145 [facility] Comment on above: Performed By: #### S ODIUM, WHOLE BLOOD ####[facility] RESPIRATORY [id number] [place] [address] [place] 30on 08-20-2024 30 Normal [facility] ANTI-XA (HEPARIN LEVEL)on HEPARIN UNFRACTIONATED (U/ML) IN PPP BY CHROMOGENIC METHOD 0.30 IU/mL Normal 0.3-0.7 [facility] Comment on above: Result Comment: [place] roxaban and Apixaban will interfere with the anti Xa assay used to monitor UFH and LMWH. Performed By: #### L [id number] ####[facility] ([facility])[address] [facility] [address] BASIC METABOLIC PANELon 07-23 Anion gap [Moles/Vol] 8 mmol/L Normal 7-20 [facility] Comment on above: Performed By: #### L [id number] ####[facility] (BEAKER)[address] [place] [address] Calcium [Mass/Vol] 9.4 mg/dL Normal 8.6-10.3 [facility] Comment on above: Performed By: #### L [id number] ####[facility] (BEAKER)[address] [place] [address] Chloride [Moles/Vol] 99 mmol/L Normal 98-107 [facility] Comment on above: Performed By: #### L [id number] ####[facility] (BEAKER)[address] [place] [address] CO2 [Moles/Vol] 34 mmol/L High 21-31 [facility] Comment on above: Performed By: #### L [id number] ####[facility] (BEAKER)[address] [place] [address] Creatinine [Mass/Vol] 0.97 mg/dL Normal 0.70-1.30 [facility] Comment on above: Performed By: #### L [id number] ####[facility] (BEAKER)[address] [place] [address] GLOMERULAR FILTRATION RATE ML/MIN/1.73 SQ M.PREDICTED 86.6 mL/min/1.73m*2 Normal >60.0 [facility] Comment on above: Result Comment: [facility]???s estimated glomerular filtration rate (eGFR) will [...] of individuals. Performed By: #### L [id number] ####[facility] ([facility])[address] [place] [address] Glucose [Mass/Vol] 267 mg/dL High 70-100 [facility] Comment on above: Performed By: #### L [id number] ####[facility] ([facility])[address] [place] [address] Potassium [Moles/Vol] 3.9 mmol/L Normal 3.5-5.1 [facility] Comment on above: Performed By: #### L [id number] ####[facility] ([facility])[address] [place] [address] Sodium [Moles/Vol] 137 mmol/L Normal 136-145 [facility] Comment on above: Performed By: #### L [id number] ####[facility] ([facility])[address] [place] [address] Urea nitrogen [Mass/Vol] 33 mg/dL High 7-25 [facility] Comment on above: Performed By: #### L [id number] ####[facility] ([facility])[address] [place] [address] UREA NITROGEN/CREATININE (MASS RATIO) IN SER/PLAS 34.0 Normal [facility] Comment on above: Performed By: #### L [id number] ####[facility] ([facility])[address] [place] [address] CBC WITH AUTO DIFFERENTIALon 08-20-2024 Basophils (Bld) [#/Vol] 0.04 10*3/uL Normal 0.00-0.20 [facility] Comment on above: Performed By: #### L [id number] ####[facility] ([facility])[address] [place] [address] Basophils/100 WBC (Bld) 0.4 % Normal 0.0-1.0 [facility] Comment on above: Performed By: #### L [id number] ####[facility] ([facility])[address] [place] [address] Eosinophils (Bld) [#/Vol] 0.58 10*3/uL High 0.00-0.50 [facility] Comment on above: Performed By: #### L [id number] ####[facility] ([facility])[address] [place] [address] Eosinophils/100 WBC (Bld) 5.6 % Normal 0.0-6.0 [facility] Comment on above: Performed By: #### L [id number] ####[facility] ([facility])[address] [place] [address] Erythrocyte distribution width (RBC) [Ratio] 15.1 % High 11.5-15.0 [facility] Comment on above: Performed By: #### L [id number] ####[facility] ([facility])[address] [place] [address] ERYTHROCYTE MEAN CORPUSCULAR HEMOGLOBIN CONCENTRATION (G/DL) BY AUTOMATED 30.5 g/dL Low 32.0-35.0 [facility] Comment on above: Performed By: #### L [id number] ####[facility] ([facility])[address] [place] [address] Hematocrit (Bld) [Volume fraction] 52.1 % Normal 39.0-55.0 [facility] Comment on above: Performed By: #### L [id number] ####[facility] (BEAKER)[address] [place] [address] Hemoglobin (Bld) [Mass/Vol] 15.9 g/dL Normal 13.0-17.0 [facility] Comment on above: Performed By: #### L [id number] ####[facility] (BEAKER)[address] [place] [address] Immature granulocytes (Bld) [#/Vol] 0.07 10*3/uL Normal 0.00-0.20 [facility] Comment on above: Performed By: #### L [id number] ####[facility] (BEAKER)[address] [place] [address] Immature granulocytes/100 WBC (Bld) 0.7 % Normal 0.0-1.0 [facility] Comment on above: Performed By: #### L [id number] ####[facility] (BEAKER)[address] [place] [address] Lymphocytes (Bld) [#/Vol] 0.94 10*3/uL Low 1.20-4.00 [facility] Comment on above: Performed By: #### L [id number] ####[facility] (BEAKER)[address] [place] [address] Lymphocytes/100 WBC (Bld) 9.1 % Low 20.0-45.0 [facility] Comment on above: Performed By: #### L [id number] ####[facility] (BE[facility]ER)[address] [place] [address] MCH (RBC) [Entitic mass] 29.0 pg Normal 27.0-33.0 [facility] Comment on above: Performed By: #### L [id number] ####[facility] (BEAKER)[address] [place] [address] MCV (RBC) [Entitic vol] 94.9 fL Normal 82.0-98.0 [facility] Comment on above: Performed By: #### L [id number] ####[facility] (BEAKER)[address] [place] [address] Monocytes (Bld) [#/Vol] 0.95 10*3/uL Normal 0.10-1.00 [facility] Comment on above: Performed By: #### L [id number] ####[facility] (BEAKER)[address] [place] [address] Monocytes/100 WBC (Bld) 9.2 % Normal 5.0-12.0 [facility] Comment on above: Performed By: #### L [id number] ####[facility] (BEAKER)[address] [place] [address] Neutrophils (Bld) [#/Vol] 7.72 10*3/uL High 1.60-7.60 [facility] Comment on above: Performed By: #### L [id number] ####[facility] (BEAKER)[address] [place] [address] Neutrophils/100 WBC (Bld) 75.0 % High 40.0-72.0 [facility] Comment on above: Performed By: #### L [id number] ####[facility] (BEAKER)[address] [place], [place] [address] NRBC (PER 100 WBCS) BY AUTOMATED COUNT 0.0 % Normal 0 [facility] Comment on above: Performed By: #### L [id number] ####[facility] ([facility]AKER)[address] [place] [address] PLATELETS (10*3/UL) IN BLOOD AUTOMATED COUNT 209 10*3/uL Normal 150-400 [facility] Comment on above: Performed By: #### L [id number] ####[facility] (BEAKER)[address] [place] [address] RBC (Bld) [#/Vol] 5.49 10*6/uL Normal 4.20-5.70 [facility] Comment on above: Performed By: #### L [id number] ####[facility] (BEAKER)[address] [place] [address] WBC (Bld) [#/Vol] 10.30 10*3/uL Normal 4.00-10.60 [facility] Comment on above: Performed By: #### L [id number] ####[facility] ([facility])[address] [address] MAGNESIUMon 08-20-2024 Magnesium [Mass/Vol] 1.9 mg/dL Normal 1.9-2.7 [facility] Comment on above: Performed By: #### L [id number] ####[facility] ([facility])[address] [place] [address] PHOSPHORUSon 08-20-2024 Magnesium [Mass/Vol] 2.1 mg/dL Low 2.5-5.0 [facility] Comment on above: Performed By: #### L [id number] ####[facility] ([facility])[address] [place] [address] POCT GLUCOSE METER UNSOLICIT ED RESULTSon 08-20-2024 Glucose [Mass/Vol] 268 mg/dL High 70-105 [facility] Comment on above: Order Comment: Waive d Testing in the ED is performed under the ED CLIA certificate #[id number]. Result Comment: [email or web address] Performed By: #### L [id number] ####[facility] ([facility])[address] [address] 30on 08-19-2024 30 Normal [facility] 30 Normal [facility] ANTI-XA (HEPARIN LEVEL)on HEPARIN UNFRACTIONATED (U/ML) IN PPP BY CHROMOGENIC METHOD 0.41 IU/mL Normal 0.3-0.7 [facility] Comment on above: Result Comment: [place] roxaban and Apixaban will interfere with the anti Xa assay used to monitor UFH and LMWH. Performed By: #### L [id number] ####[facility] ([facility])[address] [address] BASIC METABOLIC PANELon 07-23 Anion gap [Moles/Vol] 8 mmol/L Normal 7-20 [facility] Comment on above: Performed By: #### L [id number] ####[facility] ([facility])[address] [place] [address] Calcium [Mass/Vol] 8.9 mg/dL Normal 8.6-10.3 [facility] Comment on above: Performed By: #### L [id number] ####[facility] ([facility])[address] [place] [address] Chloride [Moles/Vol] 99 mmol/L Normal 98-107 [facility] Comment on above: Performed By: #### L [id number] ####[facility] ([facility])[address] [place] [address] CO2 [Moles/Vol] 37 mmol/L High 21-31 [facility] Comment on above: Performed By: #### L [id number] ####[facility] ([facility])[address] [place] [address] Creatinine [Mass/Vol] 1.00 mg/dL Normal 0.70-1.30 [facility] Comment on above: Performed By: #### L [id number] ####[facility] ([facility])[address] [place] [address] GLOMERULAR FILTRATION RATE ML/MIN/1.73 SQ M.PREDICTED 83.5 mL/min/1.73m*2 Normal >60.0 [facility] Comment on above: Result Comment: [facility]???s estimated glomerular filtration rate (eGFR) will [...] of individuals. Performed By: #### L [id number] ####[facility] ([facility])[address] [place] [address] Glucose [Mass/Vol] 219 mg/dL High 70-100 [facility] Comment on above: Performed By: #### L [id number] ####[facility] ([facility])[address] [place] [address] Potassium [Moles/Vol] 3.9 mmol/L Normal 3.5-5.1 [facility] Comment on above: Performed By: #### L [id number] ####[facility] ([facility])[address] [place] [address] Sodium [Moles/Vol] 140 mmol/L Normal 136-145 [facility] Comment on above: Performed By: #### L [id number] ####[facility] ([facility])[address] [place] [address] Urea nitrogen [Mass/Vol] 28 mg/dL High 7-25 [facility] Comment on above: Performed By: #### L [id number] ####[facility] ([facility])[address] [place] [address] UREA NITROGEN/CREATININE (MASS RATIO) IN SER/PLAS 28.0 Normal [facility] Comment on above: Performed By: #### L [id number] ####[facility] ([facility])[address] [place] [address] CBC WITH AUTO DIFFERENTIALon 08-19-2024 Basophils (Bld) [#/Vol] 0.04 10*3/uL Normal 0.00-0.20 [facility] Comment on above: Performed By: #### L [id number] ####[facility] ([facility])[address] [place] [address] Basophils/100 WBC (Bld) 0.4 % Normal 0.0-1.0 [facility] Comment on above: Performed By: #### L [id number] ####[facility] ([facility])[address] [place] [address] Eosinophils (Bld) [#/Vol] 0.62 10*3/uL High 0.00-0.50 [facility] Comment on above: Performed By: #### L [id number] ####[facility] ([facility])[address] [place] [address] Eosinophils/100 WBC (Bld) 6.7 % High 0.0-6.0 [facility] Comment on above: Performed By: #### L [id number] ####[facility] ([facility])[address] [place] [address] Erythrocyte distribution width (RBC) [Ratio] 15.4 % High 11.5-15.0 [facility] Comment on above: Performed By: #### L [id number] ####[facility] ([facility])[address] [place] [address] ERYTHROCYTE MEAN CORPUSCULAR HEMOGLOBIN CONCENTRATION (G/DL) BY AUTOMATED 29.8 g/dL Low 32.0-35.0 [facility] Comment on above: Performed By: #### L [id number] ####[facility] ([facility])[address] [place] [address] Hematocrit (Bld) [Volume fraction] 49.4 % Normal 39.0-55.0 [facility] Comment on above: Performed By: #### L [id number] ####[facility] ([facility])[address] [place] [address] Hemoglobin (Bld) [Mass/Vol] 14.7 g/dL Normal 13.0-17.0 [facility] Comment on above: Performed By: #### L [id number] ####[facility] ([facility])[address] [place] [address] Immature granulocytes (Bld) [#/Vol] 0.06 10*3/uL Normal 0.00-0.20 [facility] Comment on above: Performed By: #### L [id number] ####[facility] ([facility])[address] [place] [address] Immature granulocytes/100 WBC (Bld) 0.7 % Normal 0.0-1.0 [facility] Comment on above: Performed By: #### L [id number] ####[facility] ([facility])[address] [place] [address] Lymphocytes (Bld) [#/Vol] 0.86 10*3/uL Low 1.20-4.00 [facility] Comment on above: Performed By: #### L [id number] ####[facility] ([facility])[address] [place] [address] Lymphocytes/100 WBC (Bld) 9.3 % Low 20.0-45.0 [facility] Comment on above: Performed By: #### L [id number] ####[facility] ([facility])[address] [place] [address] MCH (RBC) [Entitic mass] 28.9 pg Normal 27.0-33.0 [facility] Comment on above: Performed By: #### L [id number] ####[facility] ([facility])[address] [place] [address] MCV (RBC) [Entitic vol] 97.2 fL Normal 82.0-98.0 [facility] Comment on above: Performed By: #### L [id number] ####[facility] ([facility])[address] [place] [address] Monocytes (Bld) [#/Vol] 0.94 10*3/uL Normal 0.10-1.00 [facility] Comment on above: Performed By: #### L [id number] ####[facility] ([facility])[address] [place] [address] Monocytes/100 WBC (Bld) 10.2 % Normal 5.0-12.0 [facility] Comment on above: Performed By: #### L [id number] ####[facility] ([facility])[address] [place] [address] Neutrophils (Bld) [#/Vol] 6.68 10*3/uL Normal 1.60-7.60 [facility] Comment on above: Performed By: #### L [id number] ####[facility] ([facility])[address] [place] [address] Neutrophils/100 WBC (Bld) 72.7 % High 40.0-72.0 [facility] Comment on above: Performed By: #### L [id number] ####[facility] ([facility])[address] [place] [address] NRBC (PER 100 WBCS) BY AUTOMATED COUNT 0.0 % Normal 0 [facility] Comment on above: Performed By: #### L [id number] ####[facility] ([facility])[address] [address] PLATELETS (10*3/UL) IN BLOOD AUTOMATED COUNT 198 10*3/uL Normal 150-400 [facility] Comment on above: Performed By: #### L [id number] ####[facility] ([facility])[address] [address] RBC (Bld) [#/Vol] 5.08 10*6/uL Normal 4.20-5.70 [facility] Comment on above: Performed By: #### L [id number] ####[facility] ([facility])[address] [address] WBC (Bld) [#/Vol] 9.20 10*3/uL Normal 4.00-10.60 [facility] Comment on above: Performed By: #### L [id number] ####[facility] ([facility])[address] [address] CONSULTon 08-19-2024 CONSULT Normal [facility] MAGNESIUMon 08-19-2024 Magnesium [Mass/Vol] 1.9 mg/dL Normal 1.9-2.7 [facility] Comment on above: Performed By: #### L [id number] ####[facility] ([facility])[address] [place] [address] PHOSPHORUSon 08-19-2024 Magnesium [Mass/Vol] 2.9 mg/dL Normal 2.5-5.0 [facility] Comment on above: Performed By: #### L [id number] ####[facility] ([facility])[address] [place] [address] POCT GLUCOSE METER UNSOLICIT ED RESULTSon 08-19-2024 Glucose [Mass/Vol] 239 mg/dL High 70-105 [facility] Comment on above: Order Comment: Waive d Testing in the ED is performed under the ED CLIA certificate #[id number]. Result Comment: [email or web address] Performed By: #### L [id number] ####[facility] ([facility])[address] [place] [address] Glucose [Mass/Vol] 251 mg/dL High 70-105 [facility] Comment on above: Order Comment: Waive d Testing in the ED is performed under the ED CLIA certificate #[id number]. Result Comment: [email or web address] Performed By: #### L [id number] ####[facility] ([facility])[address] [place] [address] Glucose [Mass/Vol] 185 mg/dL High 70-105 [facility] Comment on above: Order Comment: Waive d Testing in the ED is performed under the ED CLIA certificate #[id number]. Result Comment: [email or web address] Performed By: #### L [id number] ####[facility] ([facility])[address] [place] [address] TRIGLYCERIDESon 08-19-2024 FASTING? UNKNOWN Normal [facility] Comment on above: Performed By: #### L [id number] ####[facility] ([facility])[address] [place] [address] Magnesium [Mass/Vol] 192 mg/dL High 40-149 [facility] Comment on above: Result Comment: TRIG LYCERIDE REFERENCE RANGE:20 YEARS AND OLDER CARDIOVASCULAR RISKLESS THAN 150 mg/dL LOW [id number] TO 199 mg/dL BORDERLINE [id number] mg/dL AND GREATER HIGH RISK Performed By: #### L [id number] ####[facility] ([facility])[address] [place] [address] ANTI-XA (HEPARIN LEVEL)on HEPARIN UNFRACTIONATED (U/ML) IN PPP BY CHROMOGENIC METHOD 0.50 IU/mL Normal 0.3-0.7 [facility] Comment on above: Result Comment: [place] roxaban and Apixaban will interfere with the anti Xa assay used to monitor UFH and LMWH. Performed By: #### L [id number] ####[facility] ([facility])[address] [place] [address] HEPARIN UNFRACTIONATED (U/ML) IN PPP BY CHROMOGENIC METHOD 0.60 IU/mL Normal 0.3-0.7 [facility] Comment on above: Result Comment: [place] roxaban and Apixaban will interfere with the anti Xa assay used to monitor UFH and LMWH. Performed By: #### L [id number] ####[facility] ([facility])[address] [place] [address] BASIC METABOLIC PANELon 07-22 Anion gap [Moles/Vol] 8 mmol/L Normal 7-20 [facility] Comment on above: Performed By: #### L [id number] ####[facility] ([facility])[address] [place] [address] Calcium [Mass/Vol] 8.7 mg/dL Normal 8.6-10.3 [facility] Comment on above: Performed By: #### L [id number] ####[facility] ([facility])[address] [place] [address] Chloride [Moles/Vol] 98 mmol/L Normal 98-107 [facility] Comment on above: Performed By: #### L [id number] ####[facility] ([facility])[address] [place] [address] CO2 [Moles/Vol] 41 mmol/L Critically high 21-31 [facility] Comment on above: Performed By: #### L [id number] ####[facility] ([facility])[address] [place] [address] Creatinine [Mass/Vol] 1.05 mg/dL Normal 0.70-1.30 [facility] Comment on above: Performed By: #### L [id number] ####[facility] ([facility])[address] [place] [address] GLOMERULAR FILTRATION RATE ML/MIN/1.73 SQ M.PREDICTED 78.8 mL/min/1.73m*2 Normal >60.0 [facility] Comment on above: Result Comment: [facility]???s estimated glomerular filtration rate (eGFR) will [...] of individuals. Performed By: #### L [id number] ####[facility] ([facility])[address] [place] [address] Glucose [Mass/Vol] 201 mg/dL High 70-100 [facility] Comment on above: Performed By: #### L [id number] ####[facility] ([facility])[address] [place] [address] Potassium [Moles/Vol] 3.7 mmol/L Normal 3.5-5.1 [facility] Comment on above: Performed By: #### L [id number] ####[facility] ([facility])[address] [place] [address] Sodium [Moles/Vol] 143 mmol/L Normal 136-145 [facility] Comment on above: Performed By: #### L [id number] ####[facility] ([facility])[address] [place] [address] Urea nitrogen [Mass/Vol] 25 mg/dL Normal 7-25 [facility] Comment on above: Performed By: #### L [id number] ####[facility] ([facility])[address] [place] [address] UREA NITROGEN/CREATININE (MASS RATIO) IN SER/PLAS 23.8 Normal [facility] Comment on above: Performed By: #### L [id number] ####[facility] ([facility])[address] [place] [address] CBC WITH AUTO DIFFERENTIALon 08-18-2024 Basophils (Bld) [#/Vol] 0.03 10*3/uL Normal 0.00-0.20 [facility] Comment on above: Performed By: #### L [id number] ####[facility] ([facility])[address] [place] [address] Basophils/100 WBC (Bld) 0.3 % Normal 0.0-1.0 [facility] Comment on above: Performed By: #### L [id number] ####[facility] ([facility])[address] [place] [address] Eosinophils (Bld) [#/Vol] 0.45 10*3/uL Normal 0.00-0.50 [facility] Comment on above: Performed By: #### L [id number] ####[facility] ([facility])[address] [place] [address] Eosinophils/100 WBC (Bld) 5.0 % Normal 0.0-6.0 [facility] Comment on above: Performed By: #### L [id number] ####[facility] ([facility])[address] [place] [address] Erythrocyte distribution width (RBC) [Ratio] 15.5 % High 11.5-15.0 [facility] Comment on above: Performed By: #### L [id number] ####[facility] ([facility])[address] [place] [address] ERYTHROCYTE MEAN CORPUSCULAR HEMOGLOBIN CONCENTRATION (G/DL) BY AUTOMATED 29.7 g/dL Low 32.0-35.0 [facility] Comment on above: Performed By: #### L [id number] ####[facility] ([facility])[address] [place] [address] Hematocrit (Bld) [Volume fraction] 49.5 % Normal 39.0-55.0 [facility] Comment on above: Performed By: #### L [id number] ####[facility] ([facility])[address] [place] [address] Hemoglobin (Bld) [Mass/Vol] 14.7 g/dL Normal 13.0-17.0 [facility] Comment on above: Performed By: #### L [id number] ####[facility] ([facility])[address] [place] [address] Immature granulocytes (Bld) [#/Vol] 0.05 10*3/uL Normal 0.00-0.20 [facility] Comment on above: Performed By: #### L [id number] ####[facility] ([facility])[address] [place] [address] Immature granulocytes/100 WBC (Bld) 0.6 % Normal 0.0-1.0 [facility] Comment on above: Performed By: #### L [id number] ####[facility] ([facility])[address] [place] [address] Lymphocytes (Bld) [#/Vol] 0.93 10*3/uL Low 1.20-4.00 [facility] Comment on above: Performed By: #### L [id number] ####[facility] ([facility])[address] [place] [address] Lymphocytes/100 WBC (Bld) 10.4 % Low 20.0-45.0 [facility] Comment on above: Performed By: #### L [id number] ####[facility] ([facility])[address] [place] [address] MCH (RBC) [Entitic mass] 29.2 pg Normal 27.0-33.0 [facility] Comment on above: Performed By: #### L [id number] ####[facility] ([facility])[address] [place] [address] MCV (RBC) [Entitic vol] 98.2 fL High 82.0-98.0 [facility] Comment on above: Performed By: #### L [id number] ####[facility] ([facility])[address] [place] [address] Monocytes (Bld) [#/Vol] 1.06 10*3/uL High 0.10-1.00 [facility] Comment on above: Performed By: #### L [id number] ####[facility] ([facility])[address] [address] Monocytes/100 WBC (Bld) 11.9 % Normal 5.0-12.0 [facility] Comment on above: Performed By: #### L [id number] ####[facility] ([facility])[address] [place] [address] Neutrophils (Bld) [#/Vol] 6.41 10*3/uL Normal 1.60-7.60 [facility] Comment on above: Performed By: #### L [id number] ####[facility] ([facility])[address] [place] [address] Neutrophils/100 WBC (Bld) 71.8 % Normal 40.0-72.0 [facility] Comment on above: Performed By: #### L [id number] ####[facility] ([facility])[address] [place] [address] NRBC (PER 100 WBCS) BY AUTOMATED COUNT 0.0 % Normal 0 [facility] Comment on above: Performed By: #### L [id number] ####[facility] ([facility])[address] [place] [address] PLATELETS (10*3/UL) IN BLOOD AUTOMATED COUNT 208 10*3/uL Normal 150-400 [facility] Comment on above: Performed By: #### L [id number] ####[facility] ([facility])[address] [place] [address] RBC (Bld) [#/Vol] 5.04 10*6/uL Normal 4.20-5.70 [facility] Comment on above: Performed By: #### L [id number] ####[facility] ([facility])[address] [place] [address] WBC (Bld) [#/Vol] 8.93 10*3/uL Normal 4.00-10.60 [facility] Comment on above: Performed By: #### L [id number] ####[facility] ([facility])[address] [place] [address] CONSULTon 08-18-2024 CONSULT Normal [facility] MAGNESIUMon 08-18-2024 Magnesium [Mass/Vol] 2.1 mg/dL Normal 1.9-2.7 [facility] Comment on above: Performed By: #### L [id number] ####[facility] ([facility])[address] [place] [address] PHOSPHORUSon 08-18-2024 Magnesium [Mass/Vol] 2.9 mg/dL Normal 2.5-5.0 [facility] Comment on above: Performed By: #### L [id number] ####[facility] ([facility])[address] [place] [address] POCT GLUCOSE METER UNSOLICIT ED RESULTSon 08-18-2024 Glucose [Mass/Vol] 194 mg/dL High 70-105 [facility] Comment on above: Order Comment: Waive d Testing in the ED is performed under the ED CLIA certificate #[id number]. Result Comment: [email or web address] [email or web address] Performed By: #### L [id number] ####[facility] ([facility])[address] [place] [address] Glucose [Mass/Vol] 183 mg/dL High 70-105 [facility] Comment on above: Order Comment: Waive d Testing in the ED is performed under the ED CLIA certificate #[id number]. Result Comment: ezab [email or web address] Performed By: #### L [id number] ####[facility] ([facility])[address] [place] [address] Glucose [Mass/Vol] 173 mg/dL High 70-105 [facility] Comment on above: Order Comment: Waive d Testing in the ED is performed under the ED CLIA certificate #[id number]. Result Comment: ezab [email or web address] Performed By: #### L [id number] ####[facility] ([facility])[address] [place] [address] Glucose [Mass/Vol] 200 mg/dL High 70-105 [facility] Comment on above: Order Comment: Waive d Testing in the ED is performed under the ED CLIA certificate #[id number]. Result Comment: [email or web address] [email or web address] Performed By: #### L [id number] ####[facility] ([facility])[address] [place] [address] SPUTUM CULTUREon 08-18-2024 Clindamycin [Susc] <=0.5 Susceptible [facility] Comment on above: Performed By: #### L [id number] ####[facility] ([facility])[address] [place] [address] DAPTOmycin [Susc] <=1 Susceptible [facility] Comment on above: Performed By: #### L [id number] ####[facility] ([facility])[address] [place] [address] Linezolid [Susc] <=1 Susceptible [facility] Comment on above: Performed By: #### L [id number] ####[facility] ([facility])[address] [place] [address] Oxacillin [Susc] >2 Resistant [facility] Comment on above: Performed By: #### L [id number] ####[facility] ([facility])[address] [place] [address] Tetracycline [Susc] <=0.5 Susceptible [facility] Comment on above: Performed By: #### L [id number] ####[facility] ([facility])[address] [place] [address] Trimethoprim+Sulfamethox azole [Susc] <=0.5/9.5 Susceptible [facility] Comment on above: Performed By: #### L [id number] ####[facility] ([facility])[address] [place] [address] Vancomycin [Susc] <=0.5 Susceptible [facility] Comment on above: Performed By: #### L [id number] ####[facility] ([facility])[address] [place] [address] TRIGLYCERIDESon 08-18-2024 FASTING? unknown Normal [facility] Comment on above: Performed By: #### L [id number] ####[facility] ([facility])[address] [place] [address] Magnesium [Mass/Vol] 154 mg/dL High 40-149 [facility] Comment on above: Result Comment: TRIG LYCERIDE REFERENCE RANGE:20 YEARS AND OLDER CARDIOVASCULAR RISKLESS THAN 150 mg/dL LOW [id number] TO 199 mg/dL BORDERLINE [id number] mg/dL AND GREATER HIGH RISK Performed By: #### L [id number] ####[facility] ([facility])[address] [place] [address] 30on 08-17-2024 30 Normal [facility] ANTI-XA (HEPARIN LEVEL)on HEPARIN UNFRACTIONATED (U/ML) IN PPP BY CHROMOGENIC METHOD 0.86 IU/mL High 0.3-0.7 [facility] Comment on above: Result Comment: [place] roxaban and Apixaban will interfere with the anti Xa assay used to monitor UFH and LMWH. Performed By: #### L [id number] ####[facility] ([facility])[address] [place] [address] HEPARIN UNFRACTIONATED (U/ML) IN PPP BY CHROMOGENIC METHOD >1.00 Critically high 0.3-0.7 [facility] Comment on above: Result Comment: [place] roxaban and Apixaban will interfere with the anti Xa assay used to monitor UFH and LMWH. Performed By: #### L [id number] ####[facility] ([facility])[address] [place] [address] HEPARIN UNFRACTIONATED (U/ML) IN PPP BY CHROMOGENIC METHOD >1.00 Critically high 0.3-0.7 [facility] Comment on above: Performed By: #### L [id number] ####[facility] ([facility])[address] [place] [address] APTTon 08-17-2024 ACTIVATED PARTIAL THROMBOPLASTIN TIME IN PPP BY COAGULATION ASSAY 99.6 Seconds High 25.0-35.0 [facility] Comment on above: Result Comment: Clin ical significance of the APTT is questionable in the presence of heparin. Performed By: #### L [id number] ####[facility] ([facility])[address] [place] [address] ACTIVATED PARTIAL THROMBOPLASTIN TIME IN PPP BY COAGULATION ASSAY 98.9 Seconds High 25.0-35.0 [facility] Comment on above: Result Comment: Clin ical significance of the APTT is questionable in the presence of heparin. Performed By: #### L [id number] ####[facility] ([facility])[address] [place] [address] B-TYPE NATRIURETIC PEPTIDEon 08-17-2024 Natriuretic peptide B (Bld) [Mass/Vol] 75 pg/mL Normal 0-100 [facility] Comment on above: Performed By: #### L [id number] ####[facility] ([facility])[address] [place] [address] BASIC METABOLIC PANELon 07-22 Anion gap [Moles/Vol] 9 mmol/L Normal 7-20 [facility] Comment on above: Performed By: #### L [id number] ####[facility] ([facility])[address] [place] [address] Calcium [Mass/Vol] 8.8 mg/dL Normal 8.6-10.3 [facility] Comment on above: Performed By: #### L [id number] ####[facility] ([facility])[address] [place] [address] Chloride [Moles/Vol] 97 mmol/L Low 98-107 [facility] Comment on above: Performed By: #### L [id number] ####[facility] [place] [address] CO2 [Moles/Vol] 45 mmol/L Critically high 21-31 [facility] Comment on above: Performed By: #### L [id number] ####[facility] ([facility])[address] [place] [address] Creatinine [Mass/Vol] 0.93 mg/dL Normal 0.70-1.30 [facility] Comment on above: Performed By: #### L [id number] ####[facility] ([facility])[address] [place] [address] GLOMERULAR FILTRATION RATE ML/MIN/1.73 SQ M.PREDICTED 91.1 mL/min/1.73m*2 Normal >60.0 [facility] Comment on above: Result Comment: [facility]???s estimated glomerular filtration rate (eGFR) will [...] of individuals. Performed By: #### L [id number] ####[facility] ([facility])[address] [place] [address] Glucose [Mass/Vol] 190 mg/dL High 70-100 [facility] Comment on above: Performed By: #### L [id number] ####[facility] ([facility])[address] [place] [address] Potassium [Moles/Vol] 3.5 mmol/L Normal 3.5-5.1 [facility] Comment on above: Performed By: #### L [id number] ####[facility] ([facility])[address] [place] [address] Sodium [Moles/Vol] 147 mmol/L High 136-145 [facility] Comment on above: Performed By: #### L [id number] ####[facility] ([facility])[address] [place] [address] Urea nitrogen [Mass/Vol] 28 mg/dL High 7-25 [facility] Comment on above: Performed By: #### L [id number] ####[facility] ([facility])[address] [place] [address] UREA NITROGEN/CREATININE (MASS RATIO) IN SER/PLAS 30.1 Normal [facility] Comment on above: Performed By: #### L [id number] ####[facility] ([facility])[address] [place] [address] CBC WITH AUTO DIFFERENTIALon 08-17-2024 Basophils (Bld) [#/Vol] 0.02 10*3/uL Normal 0.00-0.20 [facility] Comment on above: Performed By: #### L [id number] ####[facility] ([facility])[address] [place] [address] Basophils/100 WBC (Bld) 0.2 % Normal 0.0-1.0 [facility] Comment on above: Performed By: #### L [id number] ####[facility] ([facility])[address] [place] [address] Eosinophils (Bld) [#/Vol] 0.20 10*3/uL Normal 0.00-0.50 [facility] Comment on above: Performed By: #### L [id number] ####[facility] ([facility])[address] [place] [address] Eosinophils/100 WBC (Bld) 2.4 % Normal 0.0-6.0 [facility] Comment on above: Performed By: #### L [id number] ####[facility] ([facility])[address] [place] [address] Erythrocyte distribution width (RBC) [Ratio] 15.3 % High 11.5-15.0 [facility] Comment on above: Performed By: #### L [id number] ####[facility] ([facility])[address] [place] [address] ERYTHROCYTE MEAN CORPUSCULAR HEMOGLOBIN CONCENTRATION (G/DL) BY AUTOMATED 30.0 g/dL Low 32.0-35.0 [facility] Comment on above: Performed By: #### L [id number] ####[facility] ([facility])[address] [place] [address] Hematocrit (Bld) [Volume fraction] 49.7 % Normal 39.0-55.0 [facility] Comment on above: Performed By: #### L [id number] ####[facility] ([facility])[address] [place] [address] Hemoglobin (Bld) [Mass/Vol] 14.9 g/dL Normal 13.0-17.0 [facility] Comment on above: Performed By: #### L [id number] ####[facility] ([facility])[address] [place] [address] Immature granulocytes (Bld) [#/Vol] 0.04 10*3/uL Normal 0.00-0.20 [facility] Comment on above: Performed By: #### L [id number] ####[facility] ([facility])[address] [place] [address] Immature granulocytes/100 WBC (Bld) 0.5 % Normal 0.0-1.0 [facility] Comment on above: Performed By: #### L [id number] ####[facility] ([facility])[address] [place] [address] Lymphocytes (Bld) [#/Vol] 0.87 10*3/uL Low 1.20-4.00 [facility] Comment on above: Performed By: #### L [id number] ####[facility] ([facility])[address] [place] [address] Lymphocytes/100 WBC (Bld) 10.5 % Low 20.0-45.0 [facility] Comment on above: Performed By: #### L [id number] ####[facility] ([facility])[address] [place] [address] MCH (RBC) [Entitic mass] 29.0 pg Normal 27.0-33.0 [facility] Comment on above: Performed By: #### L [id number] ####[facility] ([facility])[address] [place] [address] MCV (RBC) [Entitic vol] 96.9 fL Normal 82.0-98.0 [facility] Comment on above: Performed By: #### L [id number] ####[facility] ([facility])[address] [place], [place] [address] Monocytes (Bld) [#/Vol] 1.21 10*3/uL High 0.10-1.00 [facility] Comment on above: Performed By: #### L [id number] ####[facility] ([facility])[address] [place] [address] Monocytes/100 WBC (Bld) 14.6 % High 5.0-12.0 [facility] Comment on above: Performed By: #### L [id number] ####[facility] ([facility])[address] [place], [place] [address] Neutrophils (Bld) [#/Vol] 5.97 10*3/uL Normal 1.60-7.60 [facility] Comment on above: Performed By: #### L [id number] ####[facility] ([facility])[address] [place], [place] [address] Neutrophils/100 WBC (Bld) 71.8 % Normal 40.0-72.0 [facility] Comment on above: Performed By: #### L [id number] ####[facility] ([facility])[address] [place], [place] [address] NRBC (PER 100 WBCS) BY AUTOMATED COUNT 0.0 % Normal 0 [facility] Comment on above: Performed By: #### L [id number] ####[facility] ([facility])[address] [place] [address] PLATELETS (10*3/UL) IN BLOOD AUTOMATED COUNT 210 10*3/uL Normal 150-400 [facility] Comment on above: Performed By: #### L [id number] ####[facility] ([facility])[address] [place] [address] RBC (Bld) [#/Vol] 5.13 10*6/uL Normal 4.20-5.70 [facility] Comment on above: Performed By: #### L [id number] ####[facility] ([facility])[address] [place] [address] WBC (Bld) [#/Vol] 8.31 10*3/uL Normal 4.00-10.60 [facility] Comment on above: Performed By: #### L [id number] ####[facility] ([facility])[address] [place] [address] MAGNESIUMon 08-17-2024 Magnesium [Mass/Vol] 2.2 mg/dL Normal 1.9-2.7 [facility] Comment on above: Performed By: #### L [id number] ####[facility] ([facility])[address] [place] [address] Magnesium [Mass/Vol] 1.8 mg/dL Low 1.9-2.7 [facility] Comment on above: Performed By: #### L [id number] ####[facility] ([facility])[address] [place] [address] Magnesium [Mass/Vol] 1.6 mg/dL Low 1.9-2.7 [facility] Comment on above: Performed By: #### L [id number] ####[facility] ([facility])[address] [place] [address] PHOSPHORUSon 08-17-2024 Magnesium [Mass/Vol] 3.2 mg/dL Normal 2.5-5.0 [facility] Comment on above: Performed By: #### L [id number] ####[facility] ([facility])[address] [place] [address] POCT GLUCOSE METER UNSOLICIT ED RESULTSon 08-17-2024 Glucose [Mass/Vol] 184 mg/dL High 70-105 [facility] Comment on above: Order Comment: Waive d Testing in the ED is performed under the ED CLIA certificate #[id number]. Result Comment: umesh sheikh Performed By: #### L [id number] ####[facility] ([facility])[address] [place] [address] Glucose [Mass/Vol] 191 mg/dL High 70-105 [facility] Comment on above: Order Comment: Waive d Testing in the ED is performed under the ED CLIA certificate #[id number]. Result Comment: [email or web address] [email or web address] Performed By: #### L [id number] ####[facility] ([facility])[address] [place] [address] POTASSIUMon 08-17-2024 Potassium [Moles/Vol] 3.8 mmol/L Normal 3.5-5.1 [facility] Comment on above: Performed By: #### L [id number] ####[facility] ([facility])[address] [place] [address] Potassium [Moles/Vol] 3.7 mmol/L Normal 3.5-5.1 [facility] Comment on above: Performed By: #### L [id number] ####[facility] ([facility])[address] [place] [address] PROTIME-INRon 08-17-2024 INR IN PPP BY COAGULATION ASSAY 1.19 High 0.90-1.10 [facility] Comment on above: Result Comment: ACCC [...] CHEST 1994;108:231S-246S. Performed By: #### L [id number] ####[facility] ([facility])[address] [place] [address] PROTHROMBIN TIME (PT) IN PPP BY COAGULATION ASSAY 15.0 Seconds High 12.3-14.8 [facility] Comment on above: Performed By: #### L [id number] ####[facility] ([facility])[address] [place] [address] INR IN PPP BY COAGULATION ASSAY 1.19 High 0.90-1.10 [facility] Comment on above: Result Comment: ACCC [...] CHEST 1994;108:231S-246S. Performed By: #### L [id number] ####[facility] ([facility])[address] [place] [address] PROTHROMBIN TIME (PT) IN PPP BY COAGULATION ASSAY 15.1 Seconds High 12.3-14.8 [facility] Comment on above: Performed By: #### L [id number] ####[facility] ([facility])[address] [place] [address] TRIGLYCERIDESon 08-17-2024 FASTING? Unknown Normal [facility] Comment on above: Performed By: #### L [id number] ####[facility] ([facility])[address] [place] [address] Magnesium [Mass/Vol] 119 mg/dL Normal 40-149 [facility] Comment on above: Result Comment: TRIG LYCERIDE REFERENCE RANGE:20 YEARS AND OLDER CARDIOVASCULAR RISKLESS THAN 150 mg/dL LOW [id number] TO 199 mg/dL BORDERLINE [id number] mg/dL AND GREATER HIGH RISK Performed By: #### L [id number] ####[facility] ([facility])[address] [place] [address] TROPONIN Ion 08-17-2024 Troponin I.cardiac [Mass/Vol] 0.04 ng/mL Normal 0.00-0.04 [facility] Comment on above: Performed By: #### L [id number] ####[facility] ([facility])[address] [place] [address] Troponin I.cardiac [Mass/Vol] 0.04 ng/mL Normal 0.00-0.04 [facility] Comment on above: Performed By: #### L [id number] ####[facility] ([facility])[address] [place] [address] VANCOMYCIN, TROUGHon 025 VANCOMYCIN (UG/ML) IN SER/PLAS - TROUGH 23.6 ug/mL Critically high 5.0-20.0 [facility] Comment on above: Performed By: #### L [id number] ####[facility] ([facility])[address] [place] [address] BASIC METABOLIC PANELon 07-22 Anion gap [Moles/Vol] 11 mmol/L Normal 7-20 [facility] Comment on above: Performed By: #### L [id number] ####[facility] ([facility])[address] [place] [address] Calcium [Mass/Vol] 8.9 mg/dL Normal 8.6-10.3 [facility] Comment on above: Performed By: #### L [id number] ####[facility] ([facility])[address] [place] [address] Chloride [Moles/Vol] 99 mmol/L Normal 98-107 [facility] Comment on above: Performed By: #### L [id number] ####[facility] ([facility])[address] [place] [address] CO2 [Moles/Vol] 38 mmol/L High 21-31 [facility] Comment on above: Performed By: #### L [id number] ####[facility] ([facility])[address] [place] [address] Creatinine [Mass/Vol] 1.10 mg/dL Normal 0.70-1.30 [facility] Comment on above: Performed By: #### L [id number] ####[facility] ([facility])[address] [place] [address] GLOMERULAR FILTRATION RATE ML/MIN/1.73 SQ M.PREDICTED 74.5 mL/min/1.73m*2 Normal >60.0 [facility] Comment on above: Result Comment: The [facility]???s estimated glomerular filtration rate (eGFR) will [...] of individuals. Performed By: #### L [id number] ####[facility] ([facility])[address] [place] [address] Glucose [Mass/Vol] 202 mg/dL High 70-100 [facility] Comment on above: Performed By: #### L [id number] ####[facility] ([facility])[address] [place] [address] Potassium [Moles/Vol] 3.3 mmol/L Low 3.5-5.[address] [facility] Comment on above: Performed By: #### L [id number] ####[facility] ([facility])[address] [place] [address] Sodium [Moles/Vol] 145 mmol/L Normal 136-145 [facility] Comment on above: Performed By: #### L [id number] ####[facility] ([facility])[address] [place] [address] Urea nitrogen [Mass/Vol] 38 mg/dL High 7-25 [facility] Comment on above: Performed By: #### L [id number] ####[facility] ([facility])[address] [place] [address] UREA NITROGEN/CREATININE (MASS RATIO) IN SER/PLAS 34.5 Normal [facility] Comment on above: Performed By: #### L [id number] ####[facility] ([facility])[address] [place] [address] CALCIUM, IONIZEDon CALCIUM IONIZED (MMOL/L) IN BLOOD Normal [facility] Comment on above: Result Comment: C^In calculable Performed By: #### C ALCIUM, IONIZED ####[facility] [id number] [place] [address] [place] CBC WITH AUTO DIFFERENTIALon 08-16-2024 Erythrocyte distribution width (RBC) [Ratio] 15.1 % High 11.5-15.0 [facility] Comment on above: Performed By: #### L [id number] ####[facility] ([facility])[address] [place] [address] ERYTHROCYTE MEAN CORPUSCULAR HEMOGLOBIN CONCENTRATION (G/DL) BY AUTOMATED 30.9 g/dL Low 32.0-35.0 [facility] Comment on above: Performed By: #### L [id number] ####[facility] ([facility])[address] [place] [address] Hematocrit (Bld) [Volume fraction] 52.1 % Normal 39.0-55.0 [facility] Comment on above: Performed By: #### L [id number] ####[facility] ([facility])[address] [place] [address] Hemoglobin (Bld) [Mass/Vol] 16.1 g/dL Normal 13.0-17.0 [facility] Comment on above: Performed By: #### L [id number] ####[facility] ([facility])[address] [place] [address] MCH (RBC) [Entitic mass] 29.4 pg Normal 27.0-33.0 [facility] Comment on above: Performed By: #### L [id number] ####[facility] ([facility])[address] [place] [address] MCV (RBC) [Entitic vol] 95.1 fL Normal 82.0-98.0 [facility] Comment on above: Performed By: #### L [id number] ####[facility] ([facility])[address] [place] [address] NRBC (PER 100 WBCS) BY AUTOMATED COUNT 0.0 % Normal 0 [facility] Comment on above: Performed By: #### L [id number] ####[facility] ([facility])[address] [place] [address] PLATELETS (10*3/UL) IN BLOOD AUTOMATED COUNT 243 10*3/uL Normal 150-400 [facility] Comment on above: Performed By: #### L [id number] ####[facility] ([facility])[address] [place] [address] RBC (Bld) [#/Vol] 5.48 10*6/uL Normal 4.20-5.70 [facility] Comment on above: Performed By: #### L [id number] ####[facility] ([facility])[address] [place] [address] WBC (Bld) [#/Vol] 9.57 10*3/uL Normal 4.00-10.60 [facility] Comment on above: Performed By: #### L [id number] ####[facility] ([facility])[address] [place] [address] CONSULTon 08-16-2024 CONSULT Normal [facility] CONSULT Normal [facility] CTA CHEST W IV CONTRASTon CTA CHEST W IV CONTRAST Invalid Interpretation Code [facility] MAGNESIUMon 08-16-2024 Magnesium [Mass/Vol] 1.9 mg/dL Normal 1.9-2.7 [facility] Comment on above: Performed By: #### L [id number] ####[facility] ([facility])[address] [place] [address] Magnesium [Mass/Vol] 1.7 mg/dL Low 1.9-2.7 [facility] Comment on above: Performed By: #### L [id number] ####[facility] ([facility])[address] [place] [address] MANUAL DIFFERENTIALon 2024 BASOPHILS (10*3/UL) IN BLOOD BY CALCULATION 0.02 10*3/uL Normal 0.00-0.20 [facility] Comment on above: Performed By: #### L [id number] ####[facility] ([facility])[address] [place] [address] BASOPHILS/100 LEUKOCYTES IN BLOOD BY AUTOMATED COUNT 0.2 % Normal 0.0-1.0 [facility] Comment on above: Performed By: #### L [id number] ####[facility] ([facility])[address] [place] [address] EOSINOPHILS (10*3/UL) IN BLOOD BY CALCULATION 0.10 10*3/uL Normal 0.00-0.50 [facility] Comment on above: Performed By: #### L [id number] ####[facility] ([facility])[address] [place] [address] EOSINOPHILS/100 LEUKOCYTES IN BLOOD BY AUTOMATED COUNT 1.0 % Normal 0.0-6.0 [facility] Comment on above: Performed By: #### L [id number] ####[facility] ([facility])[address] [place] [address] IMMATURE GRANULOCYTES (10*3/UL) IN BLOOD BY CALCULATION 0.06 10*3/uL Normal 0.00-0.20 [facility] Comment on above: Performed By: #### L [id number] ####[facility] ([facility])[address] [place] [address] IMMATURE GRANULOCYTES/100 LEUKOCYTES IN BLOOD BY AUTOMATED COUNT 0.6 % Normal 0.0-1.0 [facility] Comment on above: Performed By: #### L [id number] ####[facility] ([facility])[address] [place] [address] LYMPHOCYTES (10*3/UL) IN BLOOD BY CALCULATION 0.73 10*3/uL Low 1.20-4.00 [facility] Comment on above: Performed By: #### L [id number] ####[facility] ([facility])[address] [place] [address] LYMPHOCYTES/100 LEUKOCYTES IN BLOOD BY AUTOMATED COUNT 7.6 % Low 20.0-45.0 [facility] Comment on above: Performed By: #### L [id number] ####[facility] ([facility])[address] [place] [address] MONOCYTES (10*3/UL) IN BLOOD BY CALCUATION 1.52 10*3/uL High 0.10-1.00 [facility] Comment on above: Performed By: #### L [id number] ####[facility] ([facility])[address] [place] [address] MONOCYTES/100 LEUKOCYTES IN BLOOD BY AUTOMATED COUNT 15.9 % High 5.0-12.0 [facility] Comment on above: Performed By: #### L [id number] ####[facility] ([facility])[address] [place] [address] NEUTROPHILS (10*3/UL) IN BLOOD BY CALCULATION 7.1 10*3/uL Normal 1.6-7.6 [facility] Comment on above: Performed By: #### L [id number] ####[facility] ([facility])[address] [place] [address] NEUTROPHILS/100 LEUKOCYTES IN BLOOD BY AUTOMATED COUNT 74.7 % High 40.0-72.0 [facility] Comment on above: Performed By: #### L [id number] ####[facility] ([facility])[address] [place] [address] PHOSPHORUSon 08-16-2024 Magnesium [Mass/Vol] 3.8 mg/dL Normal 2.5-5.0 [facility] Comment on above: Performed By: #### L [id number] ####[facility] ([facility])[address] [place] [address] Magnesium [Mass/Vol] 1.8 mg/dL Low 2.5-5.0 [facility] Comment on above: Performed By: #### L [id number] ####[facility] ([facility])[address] [place] [address] POCT GLUCOSE METER UNSOLICIT ED RESULTSon 08-16-2024 Glucose [Mass/Vol] 189 mg/dL High 70-105 [facility] Comment on above: Order Comment: Waive d Testing in the ED is performed under the ED CLIA certificate #[id number]. Result Comment: ljon es Performed By: #### L [id number] ####[facility] ([facility])[address] [place] [address] Glucose [Mass/Vol] 205 mg/dL High 70-105 [facility] Comment on above: Order Comment: Waive d Testing in the ED is performed under the ED CLIA certificate #[id number]. Result Comment: rgil l Performed By: #### L [id number] ####[facility] ([facility])[address] [place] [address] Glucose [Mass/Vol] 200 mg/dL High 70-105 [facility] Comment on above: Order Comment: Waive d Testing in the ED is performed under the ED CLIA certificate #[id number]. Result Comment: [email or web address] [email or web address] Performed By: #### L [id number] ####[facility] ([facility])[address] [place] [address] Glucose [Mass/Vol] 207 mg/dL High 70-105 [facility] Comment on above: Order Comment: Waive d Testing in the ED is performed under the ED CLIA certificate #[id number]. Result Comment: oyod er Performed By: #### L [id number] ####[facility] ([facility])[address] [place] [address] POTASSIUMon 08-16-2024 Potassium [Moles/Vol] 3.3 mmol/L Low 3.5-5.1 [facility] Comment on above: Performed By: #### L [id number] ####[facility] ([facility])[address] [place] [address] Potassium [Moles/Vol] 3.5 mmol/L Normal 3.5-5.1 [facility] Comment on above: Performed By: #### L [id number] ####[facility] ([facility])[address] [place] [address] POTASSIUM, WHOLE BLOODon Potassium [Moles/Vol] 3.5 mmol/L Normal 3.5-5.1 [facility] Comment on above: Performed By: #### P OTASSIUM, WHOLE BLOOD ####[facility] RESPIRATORY [id number] [place] [address] [place] SODIUM, WHOLE BLOODon 2024 SODIUM, WHOLE BLOOD Normal [facility] Comment on above: Result Comment: C^In calculable Performed By: #### S ODIUM, WHOLE BLOOD ####[facility] RESPIRATORY [id number] [place] [address] [facility] TRIGLYCERIDESon 08-16-2024 FASTING? Unknown Normal [facility] Comment on above: Performed By: #### L [id number] ####[facility] ([facility])[address] [place] [address] Magnesium [Mass/Vol] 243 mg/dL High 40-149 [facility] Comment on above: Result Comment: TRIG LYCERIDE REFERENCE RANGE:20 YEARS AND OLDER CARDIOVASCULAR RISKLESS THAN 150 mg/dL LOW [id number] TO 199 mg/dL BORDERLINE [id number] mg/dL AND GREATER HIGH RISK Performed By: #### L [id number] ####[facility] ([facility])[address] [place] [address] 30on 08-15-2024 30 Normal [facility] 30 Normal [facility] BLOOD CULTUREon 08-15-2024 Bacteria identified Cx Nom (Bld) No growth at 5 days Normal [facility] Comment on above: Order Comment: From a different site than #1. Performed By: #### L [id number] ####[facility] ([facility])[address] [place] [address] Basophils Auto (Bld) [#/Vol] on 08-15-2024 Basophils (Bld) [#/Vol] Automated basoph il count 0.0-0.1 [facility] Basophils/100 WBC Auto (Bld) on 08-15-2024 Basophils/100 WBC (Bld) Automated basophil % Low 0. 2-2.0 [facility] CALCIUM, IONIZEDon CALCIUM IONIZED (MMOL/L) IN BLOOD 1.23 mmol/L Normal 1.15-1.33 [facility] Comment on above: Performed By: #### C ALCIUM, IONIZED ####[facility] RESPIRATORY [id number] [place] [address] [place] CBC WITH AUTO DIFFERENTIALon 08-15-2024 Basophils (Bld) [#/Vol] 0.01 10*3/uL Normal 0.00-0.20 [facility] Comment on above: Performed By: #### L [id number] ####[facility] ([facility])[address] [place] [address] Basophils/100 WBC (Bld) 0.1 % Normal 0.0-1.0 [facility] Comment on above: Performed By: #### L [id number] ####[facility] ([facility])[address] [place] [address] Eosinophils (Bld) [#/Vol] 0.01 10*3/uL Normal 0.00-0.50 [facility] Comment on above: Performed By: #### L [id number] ####[facility] ([facility])[address] [place] [address] Eosinophils/100 WBC (Bld) 0.1 % Normal 0.0-6.0 [facility] Comment on above: Performed By: #### L [id number] ####[facility] ([facility])[address] [place] [address] Erythrocyte distribution width (RBC) [Ratio] 15.2 % High 11.5-15.0 [facility] Comment on above: Performed By: #### L [id number] ####[facility] ([facility])[address] [place] [address] ERYTHROCYTE MEAN CORPUSCULAR HEMOGLOBIN CONCENTRATION (G/DL) BY AUTOMATED 33.8 g/dL Normal 32.0-35.0 [facility] Comment on above: Performed By: #### L [id number] ####[facility] ([facility])[address] [place] [address] Hematocrit (Bld) [Volume fraction] 47.1 % Normal 39.0-55.0 [facility] Comment on above: Performed By: #### L [id number] ####[facility] ([facility])[address] [place] [address] Hemoglobin (Bld) [Mass/Vol] 15.9 g/dL Normal 13.0-17.0 [facility] Comment on above: Performed By: #### L [id number] ####[facility] ([facility])[address] [place] [address] Immature granulocytes (Bld) [#/Vol] 0.05 10*3/uL Normal 0.00-0.20 [facility] Comment on above: Performed By: #### L [id number] ####[facility] ([facility])[address] [place] [address] Immature granulocytes/100 WBC (Bld) 0.7 % Normal 0.0-1.0 [facility] Comment on above: Performed By: #### L [id number] ####[facility] ([facility])[address] [place] [address] Lymphocytes (Bld) [#/Vol] 0.54 10*3/uL Low 1.20-4.00 [facility] Comment on above: Performed By: #### L [id number] ####[facility] ([facility])[address] [place] [address] Lymphocytes/100 WBC (Bld) 7.2 % Low 20.0-45.0 [facility] Comment on above: Performed By: #### L [id number] ####[facility] ([facility])[address] [place] [address] MCH (RBC) [Entitic mass] 31.8 pg Normal 27.0-33.0 [facility] Comment on above: Performed By: #### L [id number] ####[facility] ([facility])[address] [place] [address] MCV (RBC) [Entitic vol] 94.2 fL Normal 82.0-98.0 [facility] Comment on above: Performed By: #### L [id number] ####[facility] ([facility])[address] [place] [address] Monocytes (Bld) [#/Vol] 1.23 10*3/uL High 0.10-1.00 [facility] Comment on above: Performed By: #### L [id number] ####[facility] ([facility])[address] [place] [address] Monocytes/100 WBC (Bld) 16.3 % High 5.0-12.0 [facility] Comment on above: Performed By: #### L [id number] ####[facility] ([facility])[address] [place] [address] Neutrophils (Bld) [#/Vol] 5.70 10*3/uL Normal 1.60-7.60 [facility] Comment on above: Performed By: #### L [id number] ####[facility] ([facility])[address] [place] [address] Neutrophils/100 WBC (Bld) 75.6 % High 40.0-72.0 [facility] Comment on above: Performed By: #### L [id number] ####[facility] ([facility])[address] [place] [address] NRBC (PER 100 WBCS) BY AUTOMATED COUNT 0.3 % High 0 [facility] Comment on above: Performed By: #### L [id number] ####[facility] ([facility])[address] [place] [address] PLATELETS (10*3/UL) IN BLOOD AUTOMATED COUNT 237 10*3/uL Normal 150-400 [facility] Comment on above: Performed By: #### L [id number] ####[facility] ([facility])[address] [place] [address] RBC (Bld) [#/Vol] 5.00 10*6/uL Normal 4.20-5.70 [facility] Comment on above: Performed By: #### L [id number] ####[facility] ([facility])[address] [address] WBC (Bld) [#/Vol] 7.54 10*3/uL Normal 4.00-10.60 [facility] Comment on above: Performed By: #### L [id number] ####[facility] ([facility])[address] [place] [address] COMPREHENSIVE METABOLIC PANE Kris 08-15-2024 Albumin [Mass/Vol] 2.9 g/dL Low 3.5-5.7 [facility] Comment on above: Performed By: #### L [id number] ####[facility] ([facility])[address] [place] [address] ALP [Catalytic activity/Vol] 58 U/L Normal 34-104 [facility] Comment on above: Performed By: #### L [id number] ####[facility] ([facility])[address] [place] [address] ALT [Catalytic activity/Vol] 21 U/L Normal 7-52 [facility] Comment on above: Performed By: #### L [id number] ####[facility] ([facility])[address] [place] [address] Anion gap [Moles/Vol] 13 mmol/L Normal 7-20 [facility] Comment on above: Performed By: #### L [id number] ####[facility] ([facility])[address] [place] [address] AST [Catalytic activity/Vol] 29 U/L Normal 13-39 [facility] Comment on above: Performed By: #### L [id number] ####[facility] ([facility])[address] [place] [address] Bilirubin [Mass/Vol] 1.0 mg/dL Normal 0.3-1.0 [facility] Comment on above: Performed By: #### L [id number] ####[facility] ([facility])[address] [place] [address] Calcium [Mass/Vol] 8.2 mg/dL Low 8.6-10.3 [facility] Comment on above: Performed By: #### L [id number] ####[facility] ([facility])[address] [place] [address] Chloride [Moles/Vol] 90 mmol/L Low 98-107 [facility] Comment on above: Performed By: #### L [id number] ####[facility] ([facility])[address] [place] [address] CO2 [Moles/Vol] 32 mmol/L High 21-31 [facility] Comment on above: Performed By: #### L [id number] ####[facility] ([facility])[address] [place] [address] Creatinine [Mass/Vol] 1.17 mg/dL Normal 0.70-1.30 [facility] Comment on above: Performed By: #### L [id number] ####[facility] ([facility])[address] [place] [address] GLOMERULAR FILTRATION RATE ML/MIN/1.73 SQ M.PREDICTED 69.2 mL/min/1.73m*2 Normal >60.0 [facility] Comment on above: Result Comment: The [facility]???s estimated glomerular filtration rate (eGFR) will [...] of individuals. Performed By: #### L [id number] ####[facility] ([facility])[address] [place] [address] Glucose [Mass/Vol] 219 mg/dL High 70-100 [facility] Comment on above: Performed By: #### L [id number] ####[facility] ([facility])[address] [place] [address] Potassium [Moles/Vol] 4.0 mmol/L Normal 3.5-5.1 [facility] Comment on above: Performed By: #### L [id number] ####[facility] ([facility])[address] [place] [address] Protein [Mass/Vol] 5.5 g/dL Low 6.0-8.3 [facility] Comment on above: Performed By: #### L [id number] ####[facility] ([facility])[address] [place] [address] Sodium [Moles/Vol] 131 mmol/L Low 136-145 [facility] Comment on above: Performed By: #### L [id number] ####[facility] ([facility])[address] [place] [address] Urea nitrogen [Mass/Vol] 42 mg/dL High 7-25 [facility] Comment on above: Performed By: #### L [id number] ####[facility] ([facility])[address] [place] [address] UREA NITROGEN/CREATININE (MASS RATIO) IN SER/PLAS 35.9 Normal [facility] Comment on above: Performed By: #### L [id number] ####[facility] ([facility])[address] [place] [address] Eosinophils/100 WBC Auto (Bl d)on 08-15-2024 Eosinophils/100 WBC (Bld) Automated eosinophil % Low 0.9-7.0 [facility] Erythrocyte distribution wid th Auto (RBC) [Ratio]on 08-15-2024 Erythrocyte distribution width (RBC) [Ratio] Erythrocyte distribution width [Ratio] by Automated count High 11.0-15.0 [facility] Estimated glomerular filtrat ion rate (GFR) non- Americanon 08-15-2024 GFR/1.73 sq M.predicted among non-blacks MDRD (S/P/Bld) [Vol rate/Area] Estimated glomerular filtration rate (GFR) non- Low >=60 mL/min/1.73 m 2 [facility] Globulin Calc (S) [Mass/Vol] on 08-15-2024 Globulin (S) [Mass/Vol] Serum globulin measurement by calculation (mass/volume) [facility] HEMOGLOBIN A1Con 08-15-2024 Glucose [Mass/Vol] 189 mg/dL Normal [facility] Comment on above: Performed By: #### L [id number] ####[facility] ([facility])[address] [place] [address] HbA1c (Bld) [Mass fraction] 8.2 % High 4.0-6.0 [facility] Comment on above: Performed By: #### L [id number] ####[facility] ([facility])[address] [place] [address] HPon 08-15-2024 HP Normal [facility] Hematocrit Auto (Bld) [Volum e fraction]on 08-15-2024 Hematocrit (Bld) [Volume fraction] Hematocrit [Volume Fraction] of Blood by Automated count 42.0-54.0 [facility] Hemoglobin [Mass/volume] in Bloodon 08-15-2024 Hemoglobin (Bld) [Mass/Vol] Hemoglobin [Mass/volume] in Blood 14.0-18.0 [facility] LIPASEon 08-15-2024 LIPASE (U/L) IN SER/PLAS 28 U/L Normal 11-82 [facility] Comment on above: Result Comment: M-CH EMISTRY SPECIMEN MODERATELY HEMOLYZED RESULTS MAY NOT BE ACCURATE Performed By: #### L [id number] ####[facility] ([facility])[address] [place] [address] Laboratory - Chemistry and C hemistry - challengeon 08-15-2024 HCO3 (Bld) [Moles/Vol] 34.7 mmol/L High 22.0-26.0 [facility] Albumin [Mass/Vol] 2.6 g/dL Low 3.4-5.0 [facility] ALP [Catalytic activity/Vol] 81 U/L 46-116 [facility] ALT [Catalytic activity/Vol] 37 U/L 16-63 [facility] AST [Catalytic activity/Vol] 28 U/L 15-37 [facility] Bilirubin [Mass/Vol] 1.2 mg/dL High 0.2-1.[address] [facility] Calcium [Mass/Vol] 9.2 mg/dL 8.5-10.1 [facility] Chloride [Moles/Vol] 101 mmol/L 98-[address] [facility] CO2 [Moles/Vol] 35.4 mmol/L High 21.0-32.0 [facility] Creatinine [Mass/Vol] 1.66 mg/dL High 0.70-1.30 [facility] GFR/1.73 sq M.predicted MDRD (S/P/Bld) [Vol rate/Area] 51 mL/min/{1.73_m2} Low >=60 mL/min/1.73 m 2 [facility] Glucose [Mass/Vol] 268 mg/dL High 74-106 [facility] Potassium [Moles/Vol] 3.8 mmol/L 3.5-5.1 [facility] Protein [Mass/Vol] 6.3 g/dL Low 6.4-8.2 [facility] Sodium [Moles/Vol] 143 mmol/L 136-145 [facility] Urea nitrogen [Mass/Vol] 52.0 mg/dL High 7.0-18.0 [facility] Urea nitrogen/Creatinine [Mass ratio] 31.3 mg/mg [facility] Laboratory - Hematology and Cell countson 08-15-2024 Immature granulocytes/100 WBC (Bld) 0.8 % High 0.0-0.5 [facility] Leukocytes [#/volume] correc beatris for nucleated erythrocytes in Blood by Automated counon 08-15-2024 WBC corrected for nucl RBC Auto (Bld) [#/Vol] Leukocytes [#/volume] corrected for nucleated erythrocytes in Blood by Automated coun 4.0-11.0 [facility] Lymphocytes Auto (Bld) [#/Vo l]on 08-15-2024 Lymphocytes (Bld) [#/Vol] Lymphocytes [#/volume] in Blood by Automated count Low 1.2-3.8 [facility] Lymphocytes/100 WBC Auto (Bl d)on 08-15-2024 Lymphocytes/100 WBC (Bld) Lymphocytes/100 leukocytes in Blood by Automated count Low 20.5-60.0 [facility] MAGNESIUMon 08-15-2024 Magnesium [Mass/Vol] 1.6 mg/dL Low 1.9-2.7 [facility] Comment on above: Performed By: #### L [id number] ####[facility] ([facility])[address] [place] [address] MCH Auto (RBC) [Entitic mass ]on 08-15-2024 MCH (RBC) [Entitic mass] MCH [Entitic ma ss] by Automated count 25.9-34.0 [facility] MCHC Auto (RBC) [Mass/Vol]on 08-15-2024 MCHC (RBC) [Mass/Vol] MCHC [Mass/volume] by Automated count 29.9-35.2 [facility] MCV Auto (RBC) [Entitic vol] on 08-15-2024 MCV (RBC) [Entitic vol] MCV [Entitic vol ume] by Automated count 80.0-94.0 [facility] MRSA/MSSA DNA NASALon 2024 MRSA DNA Negative Normal Negative [facility] Comment on above: Order Comment: Testi [...] preclude nasal colonization. Performed By: #### L [id number] ####[facility] ([facility])[address] [place] [address] MSSA DNA Negative Normal Negative [facility] Comment on above: Order Comment: Testi [...] preclude nasal colonization. Performed By: #### L [id number] ####[facility] ([facility])[address] [place] [address] Monocytes Auto (Bld) [#/Vol] on 08-15-2024 Monocytes (Bld) [#/Vol] Automated blood monocyte count 0.3-0.8 [facility] Monocytes/100 WBC Auto (Bld) on 08-15-2024 Monocytes/100 WBC (Bld) Automated monocyte % 1. 7-12.0 [facility] Neutrophils Auto (Bld) [#/Vo l]on 08-15-2024 Neutrophils (Bld) [#/Vol] Neutrophils [#/volume] in Blood by Automated count 1.4-6.5 [facility] Neutrophils/100 WBC Auto (Bl d)on 08-15-2024 Neutrophils/100 WBC (Bld) Automated neutrophil % High 43.0-75.0 [facility] No Panel Informationon 08-15 Avinash Test Positive POSITIVE [facility] Arterial Blood Base Excess 11.0 mmol/L High <2.0-2.0 [facility] Arterial Blood Oxygen Saturation 97.0 % [facility] Arterial Blood Partial Pressure CO2 47.8 mm[Hg] High 35.0-45.0 [facility] Arterial Blood Partial Pressure O2 81.0 mm[Hg] 80.0-100.0 [facility] Arterial Blood pH 7.469 High 7.350-7.450 [facility] Blood Gas PEEP 8 [facility] Blood Gas Sample Site RIGHT RADIAL F [facility] Blood Gas Set Respiration Rate 22 [facility] Blood Gas Tidal Volume 600 [facility] Blood Gas Ventilator Mode AC/VC [facility] FiO2 90 % [facility] Oxygen Delivery Device VENT Fi [facility] Test #2 Result 13.8 [facility] Eosinophils # (Auto) 0.0 10 3/uL 0.0-0.7 [facility] Immature Granulocyte # (Auto) 0.06 10 3/uL High 0.00-0.03 [facility] PHOSPHORUSon 08-15-2024 Magnesium [Mass/Vol] 2.7 mg/dL Normal 2.5-5.0 [facility] Comment on above: Performed By: #### L [id number] ####[facility] ([facility])[address] [place] [address] POCT GLUCOSE METER UNSOLICIT ED RESULTSon 08-15-2024 Glucose [Mass/Vol] 249 mg/dL High 70-105 [facility] Comment on above: Order Comment: Waive d Testing in the ED is performed under the ED CLIA certificate #[id number]. Result Comment: oyod er Performed By: #### L [id number] ####[facility] ([facility])[address] [facility] [place] [address] Glucose [Mass/Vol] 217 mg/dL High 70-105 [facility] Comment on above: Order Comment: Waive d Testing in the ED is performed under the ED CLIA certificate #[id number]. Result Comment: [email or web address] Performed By: #### L [id number] ####[facility] ([facility])[address] [facility] [place] [address] Glucose [Mass/Vol] 233 mg/dL High 70-105 [facility] Comment on above: Order Comment: Waive d Testing in the ED is performed under the ED CLIA certificate #[id number]. Result Comment: [email or web address] [email or web address] Performed By: #### L [id number] ####[facility] ([facility])[address] [place] [address] POTASSIUM, WHOLE BLOODon Potassium [Moles/Vol] 3.4 mmol/L Low 3.5-5.1 [facility] Comment on above: Performed By: #### P OTASSIUM, WHOLE BLOOD ####[facility] [id number] [place] [address] [facility] Platelet mean volume Auto (B ld) [Entitic vol]on 08-15-2024 Platelet mean volume (Bld) [Entitic vol] Platelet mean volume [Entitic volume] in Blood by Automated count 9.5-13.5 [facility] Platelets Auto (Bld) [#/Vol] on 08-15-2024 Platelets (Bld) [#/Vol] Platelets [#/vol ume] in Blood by Automated count 150-450 [facility] RBC Auto (Bld) [#/Vol]on RBC (Bld) [#/Vol] Erythrocytes [#/volume] in Blood by Automated count 4.70-6.10 [facility] SODIUM, WHOLE BLOODon 2024 SODIUM, WHOLE BLOOD 136 Normal 136-145 [facility] Comment on above: Performed By: #### S ODIUM, WHOLE BLOOD ####[facility] [id number] [place] [address] [place] Serum or plasma albumin/glob ulin mass ratioon 08-15-2024 Albumin/Globulin [Mass ratio] Serum or plasma albumin/globulin mass ratio [facility] Serum or plasma anion gap de terminationon 08-15-2024 Anion gap [Moles/Vol] Serum or plasma an ion gap determination [facility] TRIGLYCERIDESon 08-15-2024 FASTING? unknown Normal [facility] Comment on above: Order Comment: Monit or triglycerides while patient is on propofol. Consult Nutrition if greater than 500 mg/dL. Performed By: #### L [id number] ####[facility] ([facility])[address] [place] [address] Magnesium [Mass/Vol] 3920 mg/dL High 40-149 [facility] Comment on above: Order Comment: Monit or triglycerides while patient is on propofol. Consult Nutrition if greater than 500 mg/dL. Result Comment: TRIG LYCERIDE REFERENCE RANGE:20 YEARS AND OLDER CARDIOVASCULAR RISKLESS THAN 150 mg/dL LOW [id number] TO 199 mg/dL BORDERLINE [id number] mg/dL AND GREATER HIGH RISK Performed By: #### L [id number] ####[facility] ([facility])[address] [place] [address] TROPONIN Ion 08-15-2024 Troponin I.cardiac [Mass/Vol] 0.04 ng/mL Normal 0.00-0.04 [facility] Comment on above: Performed By: #### L [id number] ####[facility] ([facility])[address] [place] [address] URINALYSIS WITH MICROSCOPICo n 08-15-2024 BILIRUBIN, TOTAL PRESENCE IN URINE Negative Normal Negative [facility] Comment on above: Performed By: #### L [id number] ####[facility] ([facility])[address] [place] [address] Clarity (U) Clear Normal Clear [facility] Comment on above: Performed By: #### L [id number] ####[facility] ([facility])[address] [place] [address] Color (U) Colorless Normal Colorless, Yellow, Light-Yello w [facility] Comment on above: Performed By: #### L [id number] ####[facility] ([facility])[address] [place] [address] GLUCOSE (MG/DL) IN URINE Normal Normal Normal [facility] Comment on above: Performed By: #### L [id number] ####[facility] ([facility])[address] [place] [address] HEMOGLOBIN PRESENCE IN URINE Small Abnormal Negative [facility] Comment on above: Performed By: #### L [id number] ####[facility] ([facility])[address] [place] [address] Ketones Ql (U) Negative Normal Negative [facility] Comment on above: Performed By: #### L [id number] ####[facility] ([facility])[address] [place] [address] LEUKOCYTE ESTERASE PRESENCE IN URINE BY TEST STRIP Negative Normal Negative [facility] Comment on above: Performed By: #### L [id number] ####[facility] ([facility])[address] [place] [address] MUCUS (#/LPF) IN URINE SEDIMENT Occasional Normal None Seen, Occasional, Few [facility] Comment on above: Performed By: #### L [id number] ####[facility] ([facility])[address] [place] [address] NITRITE PRESENCE IN URINE Negative Normal Negative [facility] Comment on above: Performed By: #### L [id number] ####[facility] ([facility])[address] [place] [address] pH (U) 5.5 [pH] Normal 5.0-8.0 [facility] Comment on above: Performed By: #### L [id number] ####[facility] ([facility])[address] [place] [address] Protein (U) [Mass/Vol] Negative Normal Negative [facility] Comment on above: Performed By: #### L [id number] ####[facility] ([facility])[address] [place] [address] RBC (#/HPF) IN URINE SEDIMENT 11-20 Abnormal None Seen, 0-2 [facility] Comment on above: Performed By: #### L [id number] ####[facility] ([facility])[address] [place] [address] Specific gravity (U) [Rel density] 1.011 Normal 1.010-1.030 [facility] Comment on above: Performed By: #### L [id number] ####[facility] ([facility])[address] [place] [address] SQUAMOUS EPITHELIAL CELLS (#/LPF) IN URINE SEDIMENT None Seen Normal None Seen, Occasional, Few [facility] Comment on above: Performed By: #### L [id number] ####[facility] ([facility])[address] [place] [address] UROBILINOGEN (MG/DL) IN URINE Normal Normal Normal [facility] Comment on above: Performed By: #### L [id number] ####[facility] ([facility])[address] [place] [address] WBC (LEUKOCYTE) (#/HPF) IN URINE SEDIMENT 3-5 Abnormal None Seen, 0-2 [facility] Comment on above: Performed By: #### L [id number] ####[facility] ([facility])[address] [place] [address] Basophils Auto (Bld) [#/Vol] on 08-14-2024 Basophils (Bld) [#/Vol] Automated basoph il count 0.0-0.1 [facility] Basophils/100 WBC Auto (Bld) on 08-14-2024 Basophils/100 WBC (Bld) Automated basophil % 0. 2-2.0 [facility] Eosinophils/100 WBC Auto (Bl d)on 08-14-2024 Eosinophils/100 WBC (Bld) Automated eosinophil % Low 0.9-7.0 [facility] Erythrocyte distribution wid th Auto (RBC) [Ratio]on 08-14-2024 Erythrocyte distribution width (RBC) [Ratio] Erythrocyte distribution width [Ratio] by Automated count High 11.0-15.0 [facility] Estimated glomerular filtrat ion rate (GFR) non- Americanon 08-14-2024 GFR/1.73 sq M.predicted among non-blacks MDRD (S/P/Bld) [Vol rate/Area] Estimated glomerular filtration rate (GFR) non- Low >=60 mL/min/1.73 m 2 [facility] Globulin Calc (S) [Mass/Vol] on 08-14-2024 Globulin (S) [Mass/Vol] Serum globulin measurement by calculation (mass/volume) [facility] Hematocrit Auto (Bld) [Volum e fraction]on 08-14-2024 Hematocrit (Bld) [Volume fraction] Hematocrit [Volume Fraction] of Blood by Automated count 42.0-54.0 [facility] Hemoglobin [Mass/volume] in Bloodon 08-14-2024 Hemoglobin (Bld) [Mass/Vol] Hemoglobin [Mass/volume] in Blood 14.0-18.0 [facility] Laboratory - Chemistry and C hemistry - challengeon 08-14-2024 HCO3 (Bld) [Moles/Vol] 30.8 mmol/L High 22.0-26.0 [facility] Albumin [Mass/Vol] 2.4 g/dL Low 3.4-5.0 [facility] ALP [Catalytic activity/Vol] 82 U/L 46-116 [facility] ALT [Catalytic activity/Vol] 39 U/L 16-63 [facility] AST [Catalytic activity/Vol] 24 U/L 15-37 [facility] Bilirubin [Mass/Vol] 1.1 mg/dL High 0.2-1.[address] [facility] Calcium [Mass/Vol] 8.6 mg/dL 8.5-10.1 [facility] Chloride [Moles/Vol] 102 mmol/L 98-[address] [facility] CO2 [Moles/Vol] 32.4 mmol/L High 21.0-32.0 [facility] Creatinine [Mass/Vol] 1.64 mg/dL High 0.70-1.30 [facility] GFR/1.73 sq M.predicted MDRD (S/P/Bld) [Vol rate/Area] 51 mL/min/{1.73_m2} Low >=60 mL/min/1.73 m 2 [facility] Glucose [Mass/Vol] 194 mg/dL High 74-106 [facility] Potassium [Moles/Vol] 3.9 mmol/L 3.5-5.1 [facility] Protein [Mass/Vol] 5.8 g/dL Low 6.4-8.2 [facility] Sodium [Moles/Vol] 140 mmol/L 136-145 [facility] Urea nitrogen [Mass/Vol] 54.0 mg/dL High 7.0-18.0 [facility] Urea nitrogen/Creatinine [Mass ratio] 32.9 mg/mg [facility] Laboratory - Hematology and Cell countson 08-14-2024 Immature granulocytes/100 WBC (Bld) 0.8 % High 0.0-0.5 [facility] Leukocytes [#/volume] correc beatris for nucleated erythrocytes in Blood by Automated counon 08-14-2024 WBC corrected for nucl RBC Auto (Bld) [#/Vol] Leukocytes [#/volume] corrected for nucleated erythrocytes in Blood by Automated coun 4.0-11.0 [facility] Lymphocytes Auto (Bld) [#/Vo l]on 08-14-2024 Lymphocytes (Bld) [#/Vol] Lymphocytes [#/volume] in Blood by Automated count Low 1.2-3.8 [facility] Lymphocytes/100 WBC Auto (Bl d)on 08-14-2024 Lymphocytes/100 WBC (Bld) Lymphocytes/100 leukocytes in Blood by Automated count Low 20.5-60.0 [facility] MCH Auto (RBC) [Entitic mass ]on 08-14-2024 MCH (RBC) [Entitic mass] MCH [Entitic ma ss] by Automated count 25.9-34.0 [facility] MCHC Auto (RBC) [Mass/Vol]on 08-14-2024 MCHC (RBC) [Mass/Vol] MCHC [Mass/volume] by Automated count 29.9-35.2 [facility] MCV Auto (RBC) [Entitic vol] on 08-14-2024 MCV (RBC) [Entitic vol] MCV [Entitic vol ume] by Automated count High 80.0-94.0 [facility] Monocytes Auto (Bld) [#/Vol] on 08-14-2024 Monocytes (Bld) [#/Vol] Automated blood monocyte count 0.3-0.8 [facility] Monocytes/100 WBC Auto (Bld) on 08-14-2024 Monocytes/100 WBC (Bld) Automated monocyte % 1. 7-12.0 [facility] Neutrophils Auto (Bld) [#/Vo l]on 08-14-2024 Neutrophils (Bld) [#/Vol] Neutrophils [#/volume] in Blood by Automated count 1.4-6.5 [facility] Neutrophils/100 WBC Auto (Bl d)on 08-14-2024 Neutrophils/100 WBC (Bld) Automated neutrophil % High 43.0-75.0 [facility] No Panel Informationon 08-14 Avinash Test Positive POSITIVE [facility] Arterial Blood Base Excess 6.2 mmol/L High <2.0-2.0 [facility] Arterial Blood Oxygen Saturation 93.3 % [facility] Arterial Blood Partial Pressure CO2 48.3 mm[Hg] High 35.0-45.0 [facility] Arterial Blood Partial Pressure O2 62.0 mm[Hg] Low 80.0-100.0 [facility] Arterial Blood pH 7.413 7.350-7.450 [facility] Blood Gas PEEP +8 [facility] Blood Gas Sample Site RIGHT RADIAL F [facility] Blood Gas Set Respiration Rate 22 [facility] Blood Gas Tidal Volume 600 Fi [facility] Blood Gas Ventilator Mode AC [facility] FiO2 100 % [facility] Oxygen Delivery Device VENT Fi [facility] Eosinophils # (Auto) 0.0 10 3/uL 0.0-0.7 [facility] Immature Granulocyte # (Auto) 0.05 10 3/uL High 0.00-0.03 [facility] Platelet mean volume Auto (B ld) [Entitic vol]on 08-14-2024 Platelet mean volume (Bld) [Entitic vol] Platelet mean volume [Entitic volume] in Blood by Automated count 9.5-13.5 [facility] Platelets Auto (Bld) [#/Vol] on 08-14-2024 Platelets (Bld) [#/Vol] Platelets [#/vol ume] in Blood by Automated count 150-450 [facility] RBC Auto (Bld) [#/Vol]on RBC (Bld) [#/Vol] Erythrocytes [#/volume] in Blood by Automated count 4.70-6.10 [facility] Serum or plasma albumin/glob ulin mass ratioon 08-14-2024 Albumin/Globulin [Mass ratio] Serum or plasma albumin/globulin mass ratio [facility] Serum or plasma anion gap de terminationon 08-14-2024 Anion gap [Moles/Vol] Serum or plasma an ion gap determination [facility] URINE CULTURE, ROUTINEon Bacteria identified Cx Nom (U) Urine Culture, Routine [facility] Bacteria identified Cx Nom (U) No growth [facility] Bacteria identified Cx Nom (U) [facility] identified Cx Nom (U) [address], [place] [id number] [facility] Bacteria identified Cx Nom (U) Property Claim Rep: Tyron Saeed PhD, Phone: [phone] [facility] Basophils Auto (Bld) [#/Vol] on 04-08-2024 Basophils (Bld) [#/Vol] 0.1 10 3/uL 0.0-0.1 [facility] Basophils/100 WBC Auto (Bld) on 04-08-2024 Basophils/100 WBC (Bld) 0.4 % 0.2-2.0 [facility] Eosinophils/100 WBC Auto (Bl d)on 04-08-2024 Eosinophils/100 WBC (Bld) 1.7 % 0.9-7.0 [facility] Erythrocyte distribution wid th Auto (RBC) [Ratio]on 04-08-2024 Erythrocyte distribution width (RBC) [Ratio] 13.9 % 11.0-15.0 [facility] Estimated glomerular filtrat ion rate (GFR) non- Americanon 04-08-2024 GFR/1.73 sq M.predicted among non-blacks MDRD (S/P/Bld) [Vol rate/Area] mL/min/{1.73_m2} >=60 [facility] Hematocrit Auto (Bld) [Volum e fraction]on 04-08-2024 Hematocrit (Bld) [Volume fraction] 45.1 % 42.0-54.0 [facility] Hemoglobin [Mass/volume] in Bloodon 04-08-2024 Hemoglobin (Bld) [Mass/Vol] 14.7 g/dL 14.0-18.0 [facility] Laboratory - Chemistry and C hemistry - challengeon 04-08-2024 Calcium [Mass/Vol] 10.6 mg/dL High 8.5-10.1 [facility] Chloride [Moles/Vol] 98 mmol/L 98-[address] [facility] CO2 [Moles/Vol] 34.6 mmol/L High 21.0-32.0 [facility] Creatinine [Mass/Vol] 1.03 mg/dL 0.70-1.30 [facility] GFR/1.73 sq M.predicted MDRD (S/P/Bld) [Vol rate/Area] mL/min/{1.73_m2} >=60 [facility] Glucose [Mass/Vol] 178 mg/dL High 74-106 [facility] Potassium [Moles/Vol] 4.4 mmol/L 3.5-5.1 [facility] Sodium [Moles/Vol] 135 mmol/L Low 136-145 [facility] Urea nitrogen [Mass/Vol] 16.0 mg/dL 7.0-18.0 [facility] Urea nitrogen/Creatinine [Mass ratio] 15.5 mg/mg [facility] Laboratory - Hematology and Cell countson 04-08-2024 Immature granulocytes/100 WBC (Bld) 1.1 % High 0.0-0.5 [facility] Leukocytes [#/volume] correc beatris for nucleated erythrocytes in Blood by Automated counon 04-08-2024 WBC corrected for nucl RBC Auto (Bld) [#/Vol] 13.3 10 3/uL High 4.0-11.0 [facility] Lymphocytes Auto (Bld) [#/Vo l]on 04-08-2024 Lymphocytes (Bld) [#/Vol] 1.7 10 3/uL 1.2-3.8 [facility] Lymphocytes/100 WBC Auto (Bl d)on 04-08-2024 Lymphocytes/100 WBC (Bld) 12.5 % Low 20.5-60.0 [facility] MCH Auto (RBC) [Entitic mass ]on 04-08-2024 MCH (RBC) [Entitic mass] 31.1 pg 25.9-34.0 [facility] MCHC Auto (RBC) [Mass/Vol]on 04-08-2024 MCHC (RBC) [Mass/Vol] 32.6 g/dL 29.9-35.2 [facility] MCV Auto (RBC) [Entitic vol] on 04-08-2024 MCV (RBC) [Entitic vol] 95.6 fL High 80.0-94.0 [facility] Monocytes Auto (Bld) [#/Vol] on 04-08-2024 Monocytes (Bld) [#/Vol] 1.0 10 3/uL High 0.3-0.8 [facility] Monocytes/100 WBC Auto (Bld) on 04-08-2024 Monocytes/100 WBC (Bld) 7.3 % 1.7-12.0 [facility] Neutrophils Auto (Bld) [#/Vo l]on 04-08-2024 Neutrophils (Bld) [#/Vol] 10.3 10 3/uL High 1.4-6.5 [facility] Neutrophils/100 WBC Auto (Bl d)on 04-08-2024 Neutrophils/100 WBC (Bld) 77.0 % High 43.0-75.0 [facility] No Panel InformationOrdered By: Rc Curtis on 04-08-2024 Acid Fast Smear [facility] AFB Specimen Processing [facility] Anaerobic Cult, Extended Incub [facility] Tissue Culture [facility] No Panel Informationon 04-08 Fungal Smear Result \R\ Fungus Stain [facility] Gram Stain Result 1 \R\ Gram Stain Result [facility] Miscellaneous Test Comment See comment [facility] Comment on above: Specimen Source: ELENA TRT - Foot Right - Foot Rt - 604.000 Eosinophils # (Auto) 0.2 10 3/uL 0.0-0.7 [facility] Immature Granulocyte # (Auto) 0.15 10 3/uL High 0.00-0.03 [facility] Platelet mean volume Auto (B ld) [Entitic vol]on 04-08-2024 Platelet mean volume (Bld) [Entitic vol] 9.8 fL 9.5-13.5 [facility] Platelets Auto (Bld) [#/Vol] on 04-08-2024 Platelets (Bld) [#/Vol] 482 10 3/uL High 150-450 [facility] RBC Auto (Bld) [#/Vol]on RBC (Bld) [#/Vol] 4.72 10 6/uL 4.70-6.10 [facility] Serum or plasma anion gap de terminationon 04-08-2024 Anion gap [Moles/Vol] 6.8 mmol/L [facility] ALL CBC WITH AUTO DIFFon BASOPHILS ABSOLUTE AUTO 0.1 [facility] Basophils/100 WBC (Bld) 0.6 % 0.2 - 2.0 % [facility] Eosinophils/100 WBC (Bld) 2.1 % 0.9 - 7.0 % [facility] Erythrocyte distribution width (RBC) [Ratio] 14.0 % 11.0 - 15.0 % [facility] Hematocrit (Bld) [Volume fraction] 41.9 % Low 42.0 - 54.0 % [facility] Hemoglobin (Bld) [Mass/Vol] 13.7 g/dL Low 14.0 - 18.0 g/dL [facility] IMMATURE GRANULOCYTES ABS AUTO 0.46 High [facility] Immature granulocytes/100 WBC (Bld) 2.9 % High 0.0 - 0.5 % [facility] Interpretation and review of laboratory results Abnormal [facility] LY[facility]HOCYTES [facility]OLUTE [facility] Lymph[facility] WBC (Bld) 14.7 % Low 20.5 - 60.0 % [facility] MCH (RBC) [Entitic mass] 31.5 pg 25. 9 - 34.0 pg [facility] MCHC (RBC) [Mass/Vol] 32.7 g/dL 29.9 - 35.2 g/dL [facility] MCV (RBC) [Entitic vol] 96.3 fL High 80.0 - 94.0 fL [facility] MONOCYTES ABSOLUTE AUTO 1.2 High [facility] Monocytes/100 WBC (Bld) 7.8 % 1.7 - 12.0 % [facility] NEUTROPHILS ABSOLUTE AUTO 11.4 High [facility] Neutrophils/100 WBC (Bld) 71.9 % 43.0 - 75.0 % [facility] Platelet mean volume (Bld) [Entitic vol] 10.2 fL 9.5 - 13.5 fL [facility] TBH EO # 0.3 [facility] TB PLT 475 High [facility] TB RBC 4.35 Low [facility] TBH WBC 15.8 High [facility] XR FOOT LT MIN 3 VIEWSon XR [...] by: Sukhdev PARKS Date: 2022-07-14 23:08 Normal [facility] GLYCOHEMOGLOBIN A1Con 2021 ADA RECOMMENDATION SEE BELOW Normal [facility] Comment on above: Result Comment: ADA RECOMMENDED LIMIT 4.0 - 6.0 ADA THERAPEUTIC TARGET < 7.0 ACTION SUGGESTED > 7.0 Performed By: #### A 1C #### [facility] [address] [address] [address] Jennifer Zamora Glucose [Mass/Vol] 212 mg/dL Normal [facility] Comment on above: Performed By: #### A 1C #### [facility] [address] [address] [address] Jennifer Zamora HbA1c (Bld) [Mass fraction] 9.0 % Critically high 4.5-6.2 [facility] Comment on above: Performed By: #### A 1C #### [facility] [address] [place] [address] Dr. Jennifer Zamora PROF 14(COMP METB)on 05-13- 022 Albumin [Mass/Vol] 3.4 g/dL Normal 3.4-5.0 [facility] Comment on above: Performed By: #### C MP #### [facility] [address] [place] [address] Dr. Jennifer Zamora Albumin/Globulin [Mass ratio] 0.9 {ratio} Normal [facility] Comment on above: Performed By: #### C MP #### [facility] [address] [place] [address] Dr. Jennifer Zamora ALP [Catalytic activity/Vol] 108 U/L Normal 46-116 [facility] Comment on above: Performed By: #### C MP #### [facility] [address] [place] [address] Dr. Jennifer Zamora ALT [Catalytic activity/Vol] 35 U/L Normal 16-63 [facility] Comment on above: Performed By: #### C MP #### [facility] [address] [place] [address] Dr. Jennifer Zamora Anion gap [Moles/Vol] 7.0 mmol/L Normal [facility] Comment on above: Performed By: #### C MP #### [facility] [address] [place] [address] Dr. Jennifer Zamora AST [Catalytic activity/Vol] 11 U/L Critically low 15-37 [facility] Comment on above: Performed By: #### C MP #### [facility] [address] [place] [address] Dr. Jennifer Zamora Bilirubin [Mass/Vol] 0.7 mg/dL Normal 0.2-1.0 [facility] Comment on above: Performed By: #### C MP #### [facility] [address] [place] [address] Dr. Jennifer Zamora Calcium [Mass/Vol] 8.9 mg/dL Normal 8.5-10.1 [facility] Comment on above: Performed By: #### C MP #### [facility] [address] [place] [address] Dr. Jennifer Zamora Chloride [Moles/Vol] 100 mmol/L Normal 98-107 [facility] Comment on above: Performed By: #### C MP #### [facility] [address] [place] [address] Dr. Jenniefr Zamora CO2 [Moles/Vol] 32.5 mmol/L Critically high 21.0-32.0 [facility] Comment on above: Performed By: #### C MP #### [facility] [address] [place] [address] Dr. Jennifer Zamora Creatinine [Mass/Vol] 1.05 mg/dL Normal 0.70-1.30 [facility] Comment on above: Performed By: #### C MP #### [facility] [address] [place] [address] Dr. Jennifer Zamora EGFR-AF KOSOVAN >60 Normal >=60 [facility] Comment on above: Performed By: #### C MP #### [facility] [address] [place] [address] Dr. Jennifer Zamora EGFR-NON AF KOSOVAN >60 Normal >=60 [facility] Comment on above: Performed By: #### C MP #### [facility] [address] [place] [address] Dr. Jennifer Zamora Globulin (S) [Mass/Vol] 3.7 g/dL Normal [facility] Comment on above: Performed By: #### C MP #### [facility] [address] [place] [address] Dr. Jennifer Zamora Glucose [Mass/Vol] 175 mg/dL Critically high 74-[address] [facility] Comment on above: Performed By: #### C MP #### [facility] [address] [place] [address] Dr. Jennifer Zamora Potassium [Moles/Vol] 4.5 mmol/L Normal 3.5-5.1 [facility] Comment on above: Performed By: #### C MP #### [facility] [address] [address] [address] Jennifer Zamora Protein [Mass/Vol] 7.1 g/dL Normal 6.4-8.2 [facility] Comment on above: Performed By: #### C MP #### [facility] [address] [address] [address] Jennifer Zamora Sodium [Moles/Vol] 135 mmol/L Critically low 136-145 [facility] Comment on above: Performed By: #### C MP #### [facility] [address] [address] [address] Jennifer Zamora Urea nitrogen [Mass/Vol] 18.0 mg/dL Normal 7.0-18.0 [facility] Comment on above: Performed By: #### C MP #### [facility] [address] [address] [address] Jennifer Zamora Urea nitrogen/Creatinine [Mass ratio] 17.1 mg/mg Normal [facility] Comment on above: Performed By: #### C MP #### [facility] [address] [address] [address] Jennifer Zamora Vital Signs Date Time Vital Sign Value Performing Clinician Keyona bobo 04-28-2025 14:00-0400 Body height 180.34 cm Dara Eisenberg APRN Work Phone: [facility] 04-28-2025 14:00-0400 Body temperature 95.9 [degF] Dara Eisenberg APRN Work Phone: [facility] 04-28-2025 14:00-0400 Diastolic blood pressure 86 mm[Hg] Dara Eisenberg APRN Work Phone: [facility] 04-28-2025 14:00-0400 Heart rate 86 /min Dara Eisenberg APRN Work Phone: [facility] 04-28-2025 14:00-0400 SaO2% (BldA) [Mass fraction] 94 % Dara Eisenberg APRN Work Phone: [facility] 04-28-2025 14:00-0400 Systolic blood pressure 144 mm[Hg] Dara Eisenberg FIRE HYDRANT OPERATOR Work Phone: [facility] 02-01-2025 14:09-0400 Body height 180.34 cm Dara Eisenberg FIRE HYDRANT OPERATOR Work Phone: [facility] 02-01-2025 14:09-0400 Body mass index (BMI) [Ratio] 41.7 kg/m2 Dara Eisenberg FIRE HYDRANT OPERATOR Work Phone: [facility] 02-01-2025 14:09-0400 Body temperature 96.5 [degF] Dara Eisenberg FIRE HYDRANT OPERATOR Work Phone: [facility] 02-01-2025 14:09-0400 Body weight 135.62 kg Dara Eisenberg FIRE HYDRANT OPERATOR Work Phone: [facility] 02-01-2025 14:09-0400 Diastolic blood pressure 68 mm[Hg] Dara Eisenberg FIRE HYDRANT OPERATOR Work Phone: [facility] 02-01-2025 14:09-0400 Heart rate 102 /min Dara Eisenberg FIRE HYDRANT OPERATOR Work Phone: [facility] 02-01-2025 14:09-0400 SaO2% (BldA) [Mass fraction] 96 % Dara Eisenberg FIRE HYDRANT OPERATOR Work Phone: [facility] 02-01-2025 14:09-0400 Systolic blood pressure 114 mm[Hg] Dara Eisenberg APRN Work Phone: [facility] 11-05-2024 10:26-0400 Body height 180.34 cm [facility] 11-05-2024 10:26-0400 Body mass index (BMI) [Ratio] 44.7 kg/m2 [facility] 11-05-2024 10:26-0400 Body weight 145.6 kg [facility] 11-05-2024 10:26-0400 Diastolic blood pressure 68 mm[Hg] [facility] 11-05-2024 10:26-0400 Heart rate 98 /min [facility] 11-05-2024 10:26-0400 Respiratory rate 14 /min [facility] 11-05-2024 10:26-0400 SaO2% (BldA) [Mass fraction] 90 % [facility] 11-05-2024 10:26-0400 Systolic blood pressure 128 mm[Hg] [facility] 05-03-2024 14:14-0400 Body height 180.34 cm FIRE HYDRANT OPERATORFauzia Eisenberg Work Phone: [facility] 05-03-2024 14:14-0400 Body mass index (BMI) [Ratio] 39.3 kg/m2 ROWDY Eisenberg Work Phone: [facility] 05-03-2024 14:14-0400 Body temperature 96.9 [degF] ROWDY Eisenberg Work Phone: [facility] 05-03-2024 14:14-0400 Body weight 128 kg ROWDY Eisenberg Work Phone: [facility] 05-03-2024 14:14-0400 Diastolic blood pressure 86 mm[Hg] ROWDY Eisenberg Work Phone: [facility] 05-03-2024 14:14-0400 Heart rate 108 /min ROWDY Eisenberg Work Phone: [facility] 05-03-2024 14:14-0400 SaO2% (BldA) [Mass fraction] 92 % ROWDY Eisenberg Work Phone: [facility] 05-03-2024 14:14-0400 Systolic blood pressure 142 mm[Hg] ROWDY Eisenberg Work Phone: [facility] 04-05-2024 13:44-0400 Body height 180.34 cm DPM Rc Curtis Work Phone: [facility] 04-05-2024 13:44-0400 Body mass index (BMI) [Ratio] 39.6 kg/m2 DPM Rc Curtis Work Phone: [facility] 04-05-2024 13:44-0400 Body temperature 97.4 [degF] DPM Rc Curtis Work Phone: [facility] 04-05-2024 13:44-0400 Body weight 128.82 kg DPM Rc Curtis Work Phone: [facility] 04-05-2024 13:44-0400 Diastolic blood pressure 70 mm[Hg] DPShantell Curtis Work Phone: [facility] 04-05-2024 13:44-0400 Heart rate 61 /min DPM Rc Curtis Work Phone: [facility] 04-05-2024 13:44-0400 SaO2% (BldA) [Mass fraction] 87 % DPM Rc Curtis Work Phone: [facility] 04-05-2024 13:44-0400 Systolic blood pressure 134 mm[Hg] DPShantell Curtis Work Phone: [facility] Encounters Encounter Date Encounter Type Care Provider Facility Start: 04-28-2025 End: 04-28-2025 ambulatory Dara Eisenberg APRN Work Phone: [facility] Work Phone: Start: 04-28-2025 End: 04-28-2025 Patient encounter procedure Dara Eisenberg APRN [facility] Work Phone: Start: 04-13-2025 Non-patient / Non-visit Angelic Blevins [facility] Work Phone: Start: 04-12-2025 Non-patient / Non-visit Erendira Richard MD [facility] Work Phone: Start: 04-09-2025 Non-patient / Non-visit Erendira Richard MD [facility] Work Phone: Start: 04-08-2025 Non-patient / Non-visit Erendira Richard MD [facility] Work Phone: Start: 04-07-2025 Non-patient / Non-visit Erendira Richard MD [facility] Work Phone: Start: 04-05-2025 End: 04-05-2025 ambulatory Dara Eisenberg APRN Work Phone: [facility] Work Phone: Start: 04-05-2025 End: 04-05-2025 Departed Referred Coco Starr MD -[facility] Start: 04-05-2025 Non-patient / Non-visit Erendira Richard MD [facility] Work Phone: Start: 02-15-2025 ambulatory ACNP [place] Rand [place] Start: 02-01-2025 End: 02-01-2025 ambulatory Dara Eisenberg APRN Work Phone: [facility] Work Phone: Start: 02-01-2025 End: 02-01-2025 Patient encounter procedure Dara Eisenberg APRN [facility] Work Phone: Start: 01-28-2025 End: 04-28-2025 ambulatory DARA EISENBERG [facility] Start: 01-27-2025 Non-patient / Non-visit Angelic Blevins [facility] Work Phone: Start: 01-24-2025 End: 01-26-2025 Evaluation and management of inpatient Ghassan Ding Facility[place] Start: 01-24-2025 Emergency department patient visit Manuel Fletcher Facility[place] Start: 11-05-2024 End: 11-05-2024 ambulatory [facility] Work Phone: Start: 11-05-2024 End: 11-05-2024 Patient encounter procedure [facility] Work Phone: Start: 08-29-2024 Evaluation and management of inpatient MERRILL LIVINGSTONI [facility] Start: 08-26-2024 Evaluation and management of inpatient BILL JIMENEZANI [facility] Start: 08-24-2024 [facility]: [facility] Start: 08-21-2024 Evaluation and management of inpatient [facility] Start: 08-21-2024 Evaluation and management of inpatient [facility] Start: 08-20-2024 Evaluation and management of inpatient [facility] Start: 08-20-2024 Evaluation and management of inpatient [facility] Start: 08-19-2024 Evaluation and management of inpatient [facility] Start: 08-17-2024 Evaluation and management of inpatient [facility] Start: 08-16-2024 Evaluation and management of inpatient [facility] Start: 08-16-2024 Evaluation and management of inpatient [facility] Start: 08-15-2024 Evaluation and management of inpatient HUGO PRAJAPATI [facility] Start: 08-15-2024 End: 09-09-2024 Evaluation and management of inpatient SHAIKH MONO [facility] Start: 08-15-2024 Non-patient / Non-visit [facility] Work Phone: Start: 08-14-2024 Non-patient / Non-visit [facility] Work Phone: Start: 08-10-2024 End: 08-12-2024 Clinisync Result Encounter Shaikh Mono JARRETT Work Phone: [facility] Unsolicited Start: 08-10-2024 End: 08-12-2024 Clinisync Result Encounter Shaikh Mono JARRETT Work Phone: [facility] Unsolicited Start: 05-03-2024 End: 05-03-2024 ambulatory FIRE HYDRANT OPERATORFauzia Eisenberg Work Phone: [facility] Work Phone: Start: 05-03-2024 End: 05-03-2024 Patient encounter procedure ROWDY Eisenberg Work Phone: [facility] Work Phone: Start: 04-12-2024 End: 04-12-2024 ambulatory FIRE HYDRANT OPERATORFauzia Eisenberg Work Phone: [facility] Work Phone: Start: 04-12-2024 End: 04-12-2024 Patient encounter procedure ROWDY Eisenberg Work Phone: [facility] Work Phone: Start: 04-08-2024 End: 04-08-2024 ambulatory ROWDY Eisenberg Work Phone: [facility] Work Phone: Start: 04-08-2024 End: 04-08-2024 Departed Referred ROWDY Eisenberg Work Phone: [facility] Start: 04-08-2024 Non-patient / Non-visit ROWDY Eisenberg Work Phone: [facility] Work Phone: Start: 04-05-2024 End: 04-05-2024 Clinisync Result Encounter Shaikh Mono JARRETT Work Phone: [facility] Unsolicited Start: 04-05-2024 End: 04-05-2024 Clinisync Result Encounter Shaikh Mono JARRETT Work Phone: [facility] Unsolicited Start: 04-05-2024 End: 04-05-2024 ambulatory DPM Rc Curtis Work Phone: [facility] Work Phone: Start: 04-05-2024 End: 04-05-2024 Patient encounter procedure DPM Rc Curtis Work Phone: [facility] Work Phone: Start: 03-29-2024 End: 03-29-2024 ambulatory DPM Rc Curtis Work Phone: [facility] Work Phone: Start: 03-29-2024 End: 03-29-2024 Departed Referred DPM Rc Curtis Work Phone: [facility] Start: 01-26-2024 Non-patient / Non-visit DPM Rc Curtis Work Phone: [facility] Work Phone: Start: 07-14-2022 End: 07-15-[address] EDELMIRA SANTILLAN Facility:[facility] Start: 05-13-2022 End: 05-14-[address] MADELEINE MARCELINO Facility:[facility] Procedures Date Procedure Procedure Detail Performing Clinician Start: 04-05-2025 Urine culture Dara Eisenberg APRN Work Phone: Start: 08-10-2024 Bacteria identified in Urine by Culture Shaikh Mono JARRETT Work Phone: Start: 04-08-2024 Acid Fast Smear FIRE HYDRANT OPERATOR Elmer Eisenberg Work Phone: Start: 04-08-2024 AFB Specimen Processing FIRE HYDRANT OPERATOR Dara Mendenhallrbacher Work Phone: Start: 04-08-2024 Anaerobic [...] amputation of right foot Dara Faina [employer] [employer] History of amputatio n of foot Status post partial amputation of right foot Dara Faina [employer] Plan of Treatment Date Care Activity Detail Author Start: 04-05-2025 Urine culture [facility] Start: 04-05-2025 Bacteria identified in Urine by Culture Urine Culture [facility] Start: 04-08-2024 Acid Fast Culture Acid Fast Culture [facility] Payers Date Payer Category Payer Self-pay 2025 Private Health Insurance [id number] 2024 Medicare [id number] 1961 Self-pay [id number] 1961 Unknown [id number] 21 1959 Unknown [id number] 1958 Unknown [id number] .840.1.864047.3.579.2 .59 1958 Unknown [id number] .0.1.401701.3.579.2 .59 1958 Unknown [id number] .840.1.833141.3.579.2 .72 1958 Unknown [id number] .0.1.308999.3.579.2 .72 1958 Unknown [id number] 2.16.840.1.637332.3.579.2 .727 1958 Unknown [id number] 2.16.840.1.410859.3.579.2 .727 1958 Unknown [id number] 2.16.840.1.281624.3.579.2 .1958 Unknown [id number] 2.16.840.1.487536.3.579.2 .1958 Unknown [id number] 2.16.840.1.530724.3.579.2 .1958 Unknown [id number] 2.16.840.1.379581.3.579.2 .1958 Unknown [id number] 2.16.840.1.854157.3.579.2 .727 Medicare [employer] [employer] [id number] Private Health Insurance [facility] [id number] Unknown Regular Insurance [id number] Unknown [id number] 2.16.840.1.789067.3.579.2 .531 Social History Date Type Detail Facility Tobacco smoking status AZIS Unknown if ever smoked [facility] Work Phone: Start: 1960 Sex Assigned At Male F [facility] Start: 04-05-2024 Tobacco smoking status NHIS Smoker (finding) [facility] Tobacco smoking status AZIS Tobacco smoking consumption unknown [facility] Start: 1960 Sex assigned at Not on file [facility] Gender identity [facility] Start: 11-05-2024 Sex Male (finding) [facility] Start: 04-05-2024 Tobacco smoking status NHIS Smokes tobacco daily (finding) [facility] Medical Equipment Procedure Code Equipment Code Equipment [...] Venous insufficiency (chronic) (peripheral) acute January 2:06pm [facility] Work Phone: 1(229) 838-538907-15-2025 Evaluation note* Diagnosis Onset Date Resolution Status [...] diabetic neuropathy acute April 28, 2025 1:53pm [facility] Work Phone: 1(718) 470-514707-14-2025 NoteMicrobiology PROCEDURE: Blood Culture Charcoal [R1] SOURCE: Blood BODY SITE: Hand L COLLECTED DATE/TIME: 01/24/2025 17:12 EDT RECEIVED DATE/TIME: 01/24/2025 17:31 EDT START DATE/TIME: 01/24/2025 17:31 EDT FREE TEXT SOURCE: Timur MARCELO DO, Ghassan Ding III, DO, Ghassan Zepeda FINAL REPORTS Final Report [] Verified Date/Time: 01/31/2025 18:00 EDT No growth at 7 days. Performing Locations R1: This test was performed at: [facility], [address] [place] [address], [id number] , , BfotluMarymount HospitalComment on above:Performed By: #### [id number] #### [facility] [address] [place] [address] [id number] NoteMicrobiology PROCEDURE: Blood Culture Charcoal [R1] SOURCE: Blood BODY SITE: Arm R COLLECTED DATE/TIME: 01/24/2025 17:07 EDT RECEIVED DATE/TIME: 01/24/2025 17:31 EDT START DATE/TIME: 01/24/2025 17:31 EDT FREE TEXT SOURCE: Timur MARCELO DO, Ghassan Ding III, DO, Ghassan Zepeda FINAL REPORTS Final Report [] Verified Date/Time: 01/31/2025 18:00 EDT No growth at 7 days. Performing Locations R1: This test was performed at: [facility], [address] [place] [address], [id number], VolamjMarymount HospitalComment on above:Performed By: #### [id number] #### [facility] [address] [place] [address] [id number] NotePatient Education - Text Atrial Fibrillation Atrial [...] signals of the heart. ??? 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 Patient wasinsistent on trying an qpnh-klc-xjvvrsw supplement that he stated would cure diabetes [...] his wounds and recommended continued follow-up with [facility] where he receives care. Patient successfully passed a voiding trial and was voiding easily after removalof [place]. Creatinine had improved from 1.4-0.8 on discharge. Medically stable for discharge home on 01/26/2025. Follow-up PCP in 7 to 10 days Continued care at [place] [facility] Referral sent to Dr. Dugan in [place] for endocrinology follow-up for better glucose control. [...] Completed -- 01/24/25 20:11:27 EDT Consult to Power Washer (Power Washer Consult) - Ordered -- 01/24/25 20:22:00 [...] equal & normal b (more content not included)...[facility] HospitalComment on above:Result Comment: Electronically Signed By: Ghassan Ding III, DO\.marco\Date and Time Signed: 01/26/25 16:13 [id number] NotePatient Education - Text Atrial Fibrillation Atrial [...] signals of the heart. ??? An ambulatory curb worker to record your heart's activity for a [...] warning signs of a (more content not included)...[facility]07-09-2025 NoteProgress Note - Pharmacy Pharmacy to [...] Plan; TBD Please contact Pharmacy at ext. [phone] if there are any questions.[facility]07-08-2025 NoteInterdisciplinary Note - OT Pt is seen for OT evaluation. [facility] score: 16/24. Pt is agreeable only to sitting EOB, no further transfers or mobility and becomes very agitated due to BLE pain. Pt is below functional baseline for ADL performance. OT to follow for treatment. Recommending HH vs SNF at this time pending progress with treatment. [facility]07-08-2025 NoteProgress Note-Physician Assessment/Plan 01/25 - WBC [...] Orders Initial Hospital Care/Day Moderate 55 Minutes 45602 Sbsq Hospital Care/Day Moderate 35 Minutes 88266 2. Cellulitis of leg (L03.119: Cellulitis of [...] Monitoring on telemetry. Patient noncompliant with anticoagulation. [id number] score is 4. Reports that Eliquis dose [...] despite clear documentation from previous admission in [place] in August 2024. Reports that he stopped taking all of his diabetes medications. 8. Insulin dependent type 2 diabetes mellitus (E11.9: Type 2 diabetes mellitus without complications) A1c: 12.6 BGT ACHS with sliding scale insulin as needed Lantus 30 units nightly at home. Patient noncompliant. Tolerated 20units QHS 01/24, uptitrate to 30 units today. Goal glucose will be less than 180. 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 Tobacco use / SNOMED CT 9021598325 / Confirmed, Active Problems (2) Smoker Tobacco [...] an outpatient with the wound center in [place].[facility] HospitalComment on above:Result Comment: Electronically Signed By: Sina Mckeon DPM\.br\Date and Time Signed: 01/25/25 12:56 [id number] NoteInterdisciplinary Note - PT PT Evaluation done this date. Pt. with on AM-PAC this date. He requires supervision to CGAx1 with all activity. Uses w/c and FWW at baseline. Recommend home with home health PT.[facility]07-08-2025 NoteProgress Note - Pharmacy Pharmacy to [...] Plan; TBD Please contact Pharmacy at ext. [phone] if there are any questions.[facility]07-07-2025 NoteHistory and Physical Basic Information Admit [...] poor historian, and obesity who presented to [facility] 01/24/2025 with chief complaint of varicose vein [...] would be 75 kg. Given 2 L. [place] sepsis bolus will be 2.25 L, ever, [...] specifically. He follows with Dr. Curtis at [place] for podiatry and had a right transmetatarsal amputation in the past that appeared well- healed. He denies ever seeing vascular surgery. He follows with [place] [facility]. Stated that he has not [...] ROM, Normal alignment. Ext (more content not included)...[facility] HospitalComment on above: Result Comment: Electronically Signed By: Ghassan Ding III, DO.br\Date and Time Signed: 01/24/25 20:28 [id number] NoteED Patient Education Note Cardiovascular Bleeding Varicose [...] at home: Medicines ??? Take and use fnfv-gvh-ohxebng and prescription medicines and creams only as [...] Plan; TBD Please contact Pharmacy at ext. [phone] if there are any questions. Spoke with Dr. Ding - he is ordering a lovenox bridgeFisher [facility] NoteProgress Note-Nurse derrell stopped after 4 minutes for blood cultures that are new order. puneet [place]en[place] [facility]07-07-2025 NoteProgress Note-Nurse pt reportedly wears 5 lpm at [facility]. d8id not say before. no saturating properly on at home [id number] [facility]04-18-2025 Evaluation note* Diagnosis Onset Date [...] c) (peripheral) acute November 05, 2024 10:18am [facility] Work Phone: 1(214) 168-935502-20-2025 NoteUnMarymount Hospital 09-09-2024 NoteUnMarymount Hospital02-19-2025 NoteUnMarymount Hospital02-19-2025 NoteUnMarymount Hospital 09-07-2024 NoteDISCHARGE PLANNING UPDATE Patient now agreeable to SNF placement. Insurance authorization submitted for [facility] in [place]. Awaiting insurance decision.[facility]02-18-2025 NoteUnMarymount Hospital 09-07-2024 NoteUnMarymount Hospital02-18-2025 NoteUnMary[facility] Hospital02-18-2025 NoteUnMary[facility] 09-07-2024 NoteUnMary[facility] Hospital02-18-2025 NoteUnMary[facility]02-17-2025 NoteUn[facility] 09-06-2024 NoteUnMary[facility] Hospital02-17-2025 NoteUnMary[facility]02-17-2025 NoteUn[facility] 09-05-2024 NoteUnMary[facility]02-16-2025 NoteUnMary[facility]02-15-2025 NoteUn[facility] 09-04-2024 NoteUnMary[facility]02-15-2025 [facility]Pro[facility]Pro[facility] 09-03-2024 NotePro[facility]02-14-2025 NoteUnMary[facility] Hospital02-13-2025 NoteUnMary[facility] 09-02-2024 NoteUnMary[facility] Hospital02-13-2025 NoteUnMary[facility]02-13-2025 NoteUnMary[facility] 09-01-2024 NoteDISCHARGE PLANNING UPDATE [facility] ([place], [place]) is FOC. Per their admissions team, they are submitting to insurance for authorization today, 09/01.[facility] 09-01-2024 NoteUnMary[facility] Hospital02-12-2025 NoteUnMary[facility] Hospital02-11-2025 NoteUnMary[facility] 08-31-2024 NoteUnMary[facility] Hospital02-11-2025 NotePro[facility]02-11-2025 NotePro[facility] 08-30-2024 NotePro[facility]02-10-2025 NotePro[facility]02-10-2025 NotePro[facility] 08-30-2024 NotePro[facility]02-09-2025 NotePro[facility]02-08-2025 NoteUnMary[facility] 08-28-2024 NoteUnMary[facility] Hospital02-08-2025 NoteUnMary[facility] Hospital02-07-2025 NoteUnMary[facility] 08-27-2024 NoteUnMary[facility]02-06-2025 NoteUnMary[facility]02-06-2025 NoteUnMary[facility] 08-26-2024 NoteUnMary[facility]02-06-2025 NoteUnMary[facility]02-05-2025 NoteUn[facility] 08-25-2024 NoteUnMary[facility]02-05-2025 NoteUnMary[facility]02-05-2025 [facility]Pro[facility] 08-24-2024 NoteUnMary[facility]02-04-2025 NoteUnMary[facility]02-04-2025 NoteUnMary[facility] 08-24-2024 NotePatient is off unit for testing at this time.[facility]02-04-2025 NoteUnMary[facility]02-04-2025 Note [facility]02-04-2025 NoteProMedica [facility] Hospital02-04-2025 NotePro[facility]ica [facility]02-04-2025 Note [facility]02-03-2025 NoteUnMary[facility] Hospital02-03-2025 NotePro[facility]ica [facility]02-02-2025 Note [facility]02-01-2025 NoteUnMary[facility]02-01-2025 NoteUnMary[facility] Hospital01-31-2025 Note [facility]01-31-2025 NoteUnMary[facility] Hospital01-30-2025 NoteUnMarymount Hospital01-29-2025 Note [facility]01-28-2025 NoteUnMary[facility] Hospital01-28-2025 NoteUnMary[facility] Hospital01-27-2025 Note [facility]01-27-2025 NoteUnMary[facility] Hospital01-27-2025 NoteUnMarymount HospitalEvaluation noteNo assessment information availableThe [facility] Work Phone: Evaluation note* Diagnosis Onset Date Resolution Status Type 2 diabetes mellitus acu te [facility] Work Phone: Evaluation note* Diagnosis Onset Date Resolution Status COPD (chronic obstructive pulmonary disease) acute Hypertension acute MRSA cellulitis of right foot acute Nicotine dependence acute Non-compliance acute Oxygen dependent acute Type 2 diabetes mellitus acu te Ulcer of right foot due to type 2 diabetes mellitus acute [facility] Work Phone: Evaluation note* Diagnosis Onset Date Resolution Status COPD (chronic obstructive pulmonary disease) acute Hypertension acute MRSA cellulitis of right foot acute Nicotine dependence acute Non-compliance acute Oxygen dependent acute Type 2 diabetes mellitus acu te Ulcer of right foot due to type 2 diabetes mellitus acute Acute osteomyelitis of foot acute [facility] Work Phone: Evaluation note* Diagnosis Onset Date Resolution Status COPD (chronic obstructive pulmonary disease) acute Hypertension acute MRSA cellulitis of right foot acute Nicotine dependence acute Non-compliance acute Oxygen dependent acute Type 2 diabetes mellitus acu te Ulcer of right foot due to type 2 diabetes mellitus acute Acute osteomyelitis of foot acute Low back pain acute [facility] Work Phone: Evaluation note* Diagnosis [...] diabetes mellitus acute November 05, 2024 10:18am [facility] Work Phone: Reason for referral (narrative)No reason for referral information availableAdena [facility] Work Phone: Summary Purpose Family History No Family History Records Found Relationship Condition Age at Onset Recorded Date/T mecca mother Malignant neoplasm of cervix Unknown Advance Directives No Advanced Directives Records Found Advance Directive Response Recorded Date/ Time Advance Directives No March 2:40pm Chief Complaint and Reason for Visit Chief Complaint Admit Date [facility] [place] February 01, [...] Amb Documentation January 27, 2025 8:33 am [facility] [place] February 01, [...] 2025 2:06pm Chief Complaint Admit Date F/U custodial stay/Medications-HIGH R ISK November 05, 2024 10:18am Amb Documentation January 27, 2025 8:33 am [facility] [place] February 01, [...] 2024 10:18am Chief Complaint Admit Date F/U custodial stay/Medications-HIGH R ISK November 05, 2024 10:18am [...] DATE CREATED AUTHOR AUTHOR'S ORGANIZ ATION 10/20/2024 [facility] DATE CREATED AUTHOR AUTHOR'S ORGANIZ ATION 01/28/2025 [facility] DATE CREATED AUTHOR AUTHOR'S ORGANIZ ATION 01/29/2025 [facility] DATE CREATED AUTHOR AUTHOR'S ORGANIZ ATION 01/30/2025 [facility] DATE CREATED AUTHOR AUTHOR'S ORGANIZ ATION 02/04/2025 [facility] DATE CREATED AUTHOR AUTHOR'S ORGANIZ ATION 04/01/2025 [facility] DATE CREATED AUTHOR AUTHOR'S ORGANIZ ATION 04/13/2025 [facility] DATE CREATED AUTHOR AUTHOR'S ORGANIZ ATION [facility]20[facility] Care Teams (unrecognized sec tion and content) Team Status: Active Member Role Status Dates Magnolia Chavez LPN Attending Provider Active St art: January 26, 2024 Team Status: Inactive Member Role Status Dates Rc Curtis DPM MS Attending Provider Active Start: March 29, 2024 End: March 29, 2024 Team Status: Active Member Role Status Dates Dara Eisenberg APRN CORRECTIONAL CAPTAIN-C Primary Care Provider Active Team Status: Inactive Member Role Status Dates Dara Eisenberg APRN CORRECTIONAL CAPTAIN-C Primary Care Provider, Attending Provider Active Start: April 05, 2024 End: April 05, 2024 Team Status: Active Member Role Status Dates Dara Eisenberg APRN CORRECTIONAL CAPTAIN-C Primary Care Provider, Attending Provider Active Start: April 08, 2024 Team Status: Inactive Member Role Status Dates Dara Eisenberg APRN CORRECTIONAL CAPTAIN-C Primary Care Provider Active Start: March 212023 End: April 08, 2024 Rc Curtis DPM MS Attending Provider Active Start: April 08, 2024 End: April 08, 2024 Team Status: Inactive Member Role Status Dates Dara Rohrbacher , FIRE HYDRANT OPERATOR CORRECTIONAL CAPTAIN-C Primary Care Provider Active Start: March 222023 End: April 12, 2024 Navdeep Trujillo MD Attending Provider Active Sta rt: April 12, 2024 End: April 12, 2024 Team Status: Inactive Member Role Status Dates Dara Eisenberg APRN CORRECTIONAL CAPTAIN-C Primary Care Provider, Attending Provider Active Start: May 03, 2024 End: May 03, 2024 Team Status: Active Member Role Status Dates Dara Eisenberg APRN CORRECTIONAL CAPTAIN-C Primary Care Provider Active Start: July Shaikh Mono MD Attending Provider Active Sta rt: August 14, 2024 Team Status: Active Member Role Status Dates Dara Eisenberg APRN CORRECTIONAL CAPTAIN-C Primary Care Provider Active Start: July Shaikh Mono MD Attending Provider Active Sta rt: August 15, 2024 Team Status: Inactive Member Role Status Dates Dara Eisenberg APRN CORRECTIONAL CAPTAIN-C Primary Care Provider, Attending Provider Active Start: November 05, 2024 End: November 05, 2024 Team Status: Inactive Member Role Status Dates Dara Eisenberg APRN CORRECTIONAL CAPTAIN-C Primary Care Provider Active Start: November 05, 2024 End: November 05, 2024 Dara Eisenberg APRN CORRECTIONAL CAPTAIN-C Attending Provider Act mook Start: November 05, 2024 End: November 05, 2024 Team Status: Active Member Role Status Dates Dara Eisenberg APRN CORRECTIONAL CAPTAIN-C Primary Care Provider Active Start: January 27, 2025 Angelic Blevins CMA Attending Provider Active Start: January 27, 2025 Team Status: Inactive Member Role Status Dates Dara Eisenberg APRN CORRECTIONAL CAPTAIN-C Primary Care Provider Active Start: February 01, 2025 End: February 01, 2025 Dara Eisenberg APRN CORRECTIONAL CAPTAIN-C Attending Provider Act mook Start: February 01, 2025 End: February 01, 2025 Team Status: Active Member Role Status Dates Dara Eisenberg APRN CORRECTIONAL CAPTAIN-C Primary Care Provider Active Start: March 212024 Coco Starr MD Attending Provider Active Sta rt: April 05, 2025 Team Status: Inactive Member Role Status Dates Coco Starr MD Attending Provider Active Sta rt: April 05, 2025 End: April 05, 2025 Team Status: Active Member Role Status Dates Dara Eisenberg APRN CORRECTIONAL CAPTAIN-C Primary Care Provider Active Start: March 212024 [...] Member Role Status Dates Dara Eisenberg APRN CORRECTIONAL CAPTAIN-C Primary Care Provider Active Start: March 222024 Angelic Blevins CMA Attending Provider Active Start: April 13, 2025 Team Status: Inactive Member Role Status Dates Dara Eisenberg APRN CORRECTIONAL CAPTAIN-C Primary Care Provider Active Start: April 28, 2025 End: April 28, 2025 Dara Eisenberg APRN CORRECTIONAL CAPTAIN-C Attending Provider Act mook Start: April 28, [...] BE BASED ON THE PRIMARY CLINICAL RECORDS. [facility]. provides no warranty or guarantee of the accuracy or completeness of information in this document.
--- OUTSIDE RECORDS SUMMARY | 2025-05-05 13:47 | XMS_ITS | Clinical Summary ---
Author Organization [facility] Address [address] [place] [address] Care Team Providers Care Range Manager Name Role Phone Dara Eisenberg NP Primary Care Provider [phone] Allergies No known active allergies Medications insulin [...] 5 Active furosemide (Lasix) 40 mg tabletIndications:Ac tolowa dee-ni' hypoxic respiratory failure (CMS/HCC) Take 1 tablet [...] uit: Not Asked; Counseling Given: Not Answered [facility] Utilities Answer Date Recorded In [...] any time in the past 12 m [facility], were you homeless or living [...] - 6.0 % 08/16/2024 12:30 PM EST [facility]) Estimated Average Glucose 189 mg/dL 08/16/2024 12:30 PM EST [facility]) Blood Venous blood specimen / Unknown Arterial Line / Unknown 08/15/2024 2:04 PM EST 08/15/2024 2:30 PM EST Chantal Woodruff MD LAB BLOOD ORDERABLES Final Re sult [facility] ([facility]) [address] [place] [address] from Last 3 Months or Most Recently Relevant to Health Maintenance Additional Health Concerns Infection Onset Date Last Indicated MRSA 08/18/2024 08/21/2024 Insurance [employer] Advance Directives * Full Code (Latest Code Status on File) Date Activated Date Inactivated Comments 08/15/2024 12:24 PM 09/09/2024 2:30 PM Care Teams Range Manager Relationship Specialty Start Date End Date Dara Eisenberg NP [address] [place], [place] [id number] PCP - General Family Medicine 07/21/24
--- OUTSIDE RECORDS SUMMARY | 2025-05-05 13:48 | XMS_ITS | Clinical Summary ---
Author Organization [facility] Address [id number] [address] [id number] Care Team Providers Care Artificial Flower Maker Name Role Phone Unavailable Primary Care Provider [...]
== END 2025-05-05 13:41 | disposition home or self-care (01) ==
LOC: WC 13:40
PROVIDERS: PCP Nurse Practitioner Family; Visit Provider Physician Assistant
DX: R60.1 Generalized edema (principal); L97.822 Non-pressure chronic ulcer of other part of left lower leg with fat layer exposed; L97.812 Non-pressure chronic ulcer of other part of right lower leg with fat layer exposed; E11.621 Type 2 diabetes mellitus with foot ulcer; L97.416 Non-pressure chronic ulcer of right heel and midfoot with bone involvement without evidence of necrosis; I87.313 Chronic venous hypertension (idiopathic) with ulcer of bilateral lower extremity
CPT/HCPCS: 29581

== ENCOUNTER 2025-05-10 14:45 | Outpatient (OUT) | payer MEDICARE, SELFPAY ==
--- OUTSIDE RECORDS SUMMARY | 2024-04-08 04:15 | XMS_ITS ---
Author Organization The [facility] in [place] Address [address] [place] [address] Care Team Providers Care Study Coordinator Name Role Phone Dara Eisenberg CNP Primary Care Provider U ghassangloria Rc Curtis Unavailable [phone] REASON FOR VISIT RT TMA Encounters Encounter Location Date Provider Diagnosis [facility] OUTPATIENT [address] [place] [address] 04/08/2024 Rc Curtis Plan Of Treatment No Information Progress Notes * Onofre SMITHDOB:1960 ([age] yo M)Acc No.[id number]:04/08/2024 UNLOCKED PROGRESS NOTE Patient:?Onofre SMITH :?Rc Curtis DPM, MSDOB:1960???Age: 63 Y???Sex:MaleDate:4Phone:[phone]:[address] [place], [place] [id number]:Sue Moreno Out:12:18 PM EST * * Electronic signature of Rc Curtis DPM on 05/10/2025 at 02:48 PM EDTSign off status: PendingVisit Status:?CHK (Check Out) * Provider: Los Curtis DPM, MS Date: 0 04/08/2024 Generated for Printing/Faxing/eTransmitting on:?05/10/2025 02:48 PM EDT
--- OUTSIDE RECORDS SUMMARY | 2025-04-28 11:09 | XMS_ITS | Continuity of Care Document ---
Author Organization [facility] Address [address] [place] [id number] Phone Care Team Providers Care Continuing Education Dean Name Role Phone Dara Eisenberg APRN Primary Care Provider Dara Eisenberg APRN Attending Provider Coco Starr MD Attending Provider [phone] Erendira Richard MD Attending Provider Angelic Blevins CMA Attending Provider [facility] Care Teams Patient Care Team Team Status: Active Member Role Status Dates Dara Eisenberg APRN [employer] Primary Care Provider Active Visit Care Team Team Status: Inactive Member Role Status Dates Dara Eisenberg APRN [employer]-C Primary Care Provider Active Start: February 01, 2025 End: February 01, 2025aDra Eisenberg APRN [employer] SETTER-CAttending ProviderActive Start: February 01, 2025 End: February 01, 2025 Visit Care Team Team Status: Active Member Role Status Dates Dara Eisenberg APRN [employer]-C Primary Care Provider Active Start: March 212024 Tanya Shaver ProviderActiveStart: April 05, 2025 Visit Care Team Team Status: Inactive Member Role Status Dates Coco Starr MD Attending Provider Active Sta rt: April 05, 2025 End: April 05, 2025 Visit Care Team Team Status: Active Member Role Status Dates Dara Eisenberg APRN [employer]TER-C Primary Care Provider Active Start: March 212024 Tanya Noland ProviderActiveStart: April 06, 2025 Visit Care Team Team [...] Member Role Status Dates Dara Eisenberg APRN [employer]-C Primary Care Provider Active Start: March 222024 Angelic Blevins CMAAttkishor ProviderActiveStart: April 13, 2025 Patient Care Team Team Status: Inactive Member Role Status Dates Dara Eisenberg APRN [employer]-C Primary Care Provider Active Start: April 28, 2025 End: April 28, 2025Dara Eisenberg APRN [employer] SETTER-CAttending ProviderActive Start: April 28, 2025 End: April 28, 2025 Chief Complaint and Reason for Visit Chief Complaint Admit Date [facility] follow up February 01, [...] Known Allergies Allergy Unknown April 28, 2025 2:04pmYesActive Social History Smoking Status Status Start Date End Date Date of Observa tion Smokes tobacco daily (finding) April 05, 2024 2:40pm Observation Status Observation Response Date of Response Legal Sex Male (finding) Sex Assigned At BirthMaleMay 1960 Family History Relationship Condition Age at [...] End Date Instructions Adherence Insulin Detemir U-100 (Levem ir Flexpen) 100 unit/mL (3 mL) insulin pen Discontinued 30 UNIT SUBCUT Daily at bedtime April 23, 2024 12:10pmOctober 2023 12:39pmInsulin Glargine (Lantus Solostar U-100 Insulin) 100 unit/mL (3 mL) insulin penDiscontinued0.ROUTE .BRFWNZL33Xpwbfwh 2023 12:38pmOctober 2023 3:33pmPlease specify directions, refills and quantityInsulin Glargine (Lantus Solostar U-100 Insulin) 100 unit/mL (3 mL) insulin erwImrhhkxdnukp05QVUJQIUUGAFmwwl pvywcic90RvbrgzzApril 23, 2024 3:32pmMay 2024 2:08pmBlood Sugar Diagnostic stripDiscontinued0 .Kkylr618Gukndet 2023 12:00amOctober 2023 1:31pmAs directedBlood Sugar Diagnostic stripActive0.Nonqw278Xjygpmp 9th, 2024 1:31pmAs directed Cyclobenzaprine 10 mg tabletDiscontinued0.ROUTE.EYZJZDS14Tvguwyko 2023 10:38amDecember 2023 4:22pmTAKE 1 TABLET BY MOUTH DAILY AT BEDTIMEInsulin Glargine (Basaglar Kwikpen U-100 Insulin) 100 unit/mL (3 mL) insulin pen Nuriulmtwhgr9OEZJUMXUPFMyqhz daily5.490May 2024 12:00amMay 2024 2:08pmInsulin Glargine (Basaglar Kwikpen U-100 Insulin) 100 unit/mL (3 mL) insulin dqhQwegktyvjgao05MCROBLNUIKDchlb xbtbj2302YaiDecember 02, 2024 2:08pmMay 2024 2:09pmInsulin Glargine (Basaglar Kwikpen U-100 Insulin) 100 unit/mL (3 mL) insulin rexRnbstcissmga28FMIIHMGAIYMtzfl nqnakdj2280Uxt 15th, 2025 2:09pmOctober 2024 2:27pmcancel BID order should be q pmAlbuterol Sulfate 2.5 mg /3 mL (0.083 %) solution for nebulizationActive0.ROUTE.TMOISNF657Aah 2024 9:06am INHALE 1 VIAL VIA NEBULIZER EVERY 6 HOURS NEEDEDUnknownGabapentin 300 mg ekowlqhUhsiuwyudbdo529WNYEUhiff at ikeroui6060Ytce 2024 11:34amAugust 2024 11:36am2 caps in AM, 1 in afternoon, 2 caps in PMAtorvastatin 80 mg tabletActive0.ROUTE.EWKZTZE57Kkddxp 2024 11:35amTAKE 1 TABLET BY MOUTH EVERY DAY FOR 90 DAYSUnknownFurosemide 40 mg tabletDiscontinued0.ROUTE.OUHWRBP33 February 28, 2025 11:35amOctober 2024 2:11pmTAKE 1 TABLET BY MOUTH EVERY DAY FOR 90 DAYSGabapentin 300 mg capsuleDiscontinued0.ROUTE.UMQOXGE28Jjjsby 2024 11:36amOctober 2024 2:06pmTAKE 2 CAPSULES DAILY AT BEDTIME Glipizide 5 mg tabletDiscontinued0.ROUTE.LTTVDBA963PkfvrsxdrMarch 30, 2025 3:15pm April 04, 2025 4:02pmTAKE 1 TABLET BY MOUTH TWICE A DAYGlipizide 5 mg tabletDiscontinued0.ROUTE.KUBRBFX539Davdidtms 15th, 2025 4:02pmOctober 2024 2:11pmTAKE 1 TABLET BY MOUTH TWICE A DAYMetformin 1,000 mg tabletDiscontinued 1000MGPODailySeptember 2023 12:00amApril 2024 11:45amMeclizine 25 mg zcsmmwEtlqifbhdtiz45OOKUJpandgryi 2023 12:00amDecemb2023 4:22pm Glipizide 5 mg kkfnumHzwviatrtrrc8IYCFTbdfa fohxl46522Rkqdiosu2023 4:31pm March 30, 2025 3:15pmSildenafil (Viagra) 50 mg ipenyqNaxpuf72OYOHDycrw as needed for sexual dhwbbsgr1151Ubujlulg 10th, 2024 1:00amadminister 30 minutes to 4 hours before activityUnknownQuetiapine 50 mg vgoemeJuiprnontiqm40SNPFFxuee November 05, 2024 12:00amApril 2024 11:48amGabapentin 300 mg capsule Cgjfktnmlvgw535FEKXGussg times dailyApr2024 12:00amApril 2024 11:48am2 caps in AM, 1 in afternoon, 2 caps in PMMetoprolol Tartrate 50 mg bjvbdxBtakhrpbvqsw15ATYAJtsot dailyApr2024 12:00amApril 2024 11:39amMagnesium Oxide 400 mg (241.3 mg magnesium) wtijqjZruvjk828HMQIKvycc dailyApril 2024 12:00amUnknownTramadol 50 mg kpplozHuynsufuhzof17IHEYEusbv 6 hours as neededApril 2024 12:00amApril 2024 11:45amAlbuterol Sulfate 2.5 mg /3 mL (0.083 %) solution for nebulizationDiscontinued2.5MG CNTNEBULIZEvery 6 hours as neededApril 2024 12:00amMay 2024 9:07am Atorvastatin 80 mg wmofuwHcufeoasxeue95JFVOCiunqNfxmo 2024 12:00amApril 2024 11:38amFurosemide 40 mg ntjshzVhrvmztvzbrt58TXSXLnvphNkmvn 2024 12:00amApril 2024 11:38amFurosemide 40 mg ersykbBlpsubvesbyt45LINBFbywn29 90April 2024 11:13amAugust 2024 11:36amAtorvastatin 80 mg tablet Dvhbiiolegmq83MIWGLlcyf4394Kxncw 2024 11:38amAugust 2024 11:36am Metoprolol Tartrate 50 mg uvceylAezoqahtjgpi43MQFIOnrss lmcfe58276Fqgug 2024 11:38amOctober 2024 2:06pmQuetiapine 50 mg ogzwidEtnhcpkxusve59ANHY Lblwj2156Yzgzp 2024 11:44amJuly 2024 2:34pmGabapentin 300 mg capsule Ujqbwprqdhsj734BSBPXubnd times ofqag4213Nkmfw 2024 11:46amJuly 2024 11:34am2 caps in AM, 1 in afternoon, 2 caps in PMApixaban 5 mg tablet Zurzsxyijzge7DEXTDnnah ddwfr629Rfxki 2024 12:00amApril 2024 9:02am Apixaban 5 mg qvfdjpLqffwc9ANWUZqmoq smcti534Dzyqd 2024 9:02amUnknown Glipizide 5 mg icuqnbNpwbfvxpqhse5ERITElqgHotcsidla 2023 12:00amDecember 2023 4:32pmAmoxicillin-Pot Clavulanate 875-125 mg tabletDiscontinuedTABPO April 05, 2024 12:00amSeptember 2023 3:18pmInsulin Detemir U-100 (Levemir Flexpen) 100 unit/mL (3 mL) insulin axfMsksmauxkorh08EQRZQHIYYAJsqui at bedtimeSeptember 2023 12:00amOctober 2023 12:11pmOxygen unitActive0 .RouteSeptember 2023 12:00amAs directedSulfamethoxazole-Trimethoprim 800- 160 mg tabletDiscontinuedTABPOTwice dailyOctober 2023 12:00amDeceer 2023 4:22pmCyclobenzaprine 10 mg orezhrKopannimasxj33INWQLaobe at bedtime 3030October 2023 12:00amNovember 2023 10:38amCephalexin 500 mg hnwfgbmIgoymdpmfcfo870QWEUXqsv times dailyJuly 2024 12:00amOctober 2024 2:05pmWarfarin 5 mg kohqbhLdijncxzlwae5FARRXhtlaTpkn 2024 12:00am April 28, 2025 2:07pmQuetiapine 100 mg bwguhnKepxdfgjnrgx469BXNXNktjj5560Ayxu 2024 2:34pmOctober 2024 2:11pmDigoxin 250 mcg (0.25 mg) tablet Fsivfqeovywi069GSZFIGrfkaRpvzvlq 2024 12:00amOctober 2024 2:28pm Metoprolol Tartrate 25 mg hygnzpDagcapbmyaqc76VAKBFjnvh dailyOctober 2024 12:00amOctober 2024 2:28pmInsulin Glargine (Lantus U-100 Insulin) 100 unit/mL dyxreiecZyiaejddabsi73GAZFOZYHTWJyryt dailyOctober 2024 12:00am April 28, 2025 2:28pmMetoprolol Tartrate 25 mg qzypbtYuvqck17QSRSEqgzg daily 68894Vwpvuqr 2024 2:24pmComplies with drug therapyDigoxin 250 mcg (0.25 mg) lhxbsgJozndp005HQZWSAbapl6907Tdizboz 2024 2:25pmComplies with drug therapy Insulin Glargine (Lantus U-100 Insulin) 100 unit/mL ecxnxydlZiqduypkutey86WPRV SUBCUTThree times dailyOctde[facility] 2024 2:26pmOctdeaconess hospital [facility] 2024 2:29pmInsulin Glargine (Lantus U-100 Insulin) 100 unit/mL wuiryqbdCblgnxxjvmgf71QIKCGCCVXP Three times daily40.590Octdeaconess hospital [facility] 2024 2:28pmOctdeaconess hospital [facility] 2024 3:00pmLosartan 25 mg soudnoHgdduy80TZHHMhtiq6473Czdxrjl 2024 12:00amComplies with drug therapyInsulin Glargine (Lantus Solostar U-100 Insulin) 100 unit/mL (3 mL) insulin pjkMfhcfz89KXBVMJDCYAYfxwl times hjugk35Qvhsqvm 2024 12:00amcancel lantus vialsComplies with drug therapy Procedures Procedure Date Performed Status Urine Culture April 05, 2025 completed Relevant Diagnostic Tests and/or Laboratory Data Laboratory Results Test Collection Date/Time Result Date/Time Result Interpretation Reference Range Result Comment Performing Site Anion Gap April 05, 2025 3:00pm April 05 3:00pm 10.7 Absolute Basophils (Manual)April 05, 2025 3:00[facility] 2024 3:00pm0.18 10 3/uLAbove high normal0.00-0.10HematocritSeptdignity health [facility] 2024 3:00pm43.2 %42.0-54.0Prothromb Time International RatioSeptember 2024 3:00pmSeptember 2024 3:00pm1.04DESIRED INR:2.0-3.0 CONDITIONS NOT LISTED BELOW2.5-3.5 FOR PROSTHETIC HEART VALVE REPLACEMENT2.5-3.5 RECURRENT THROMBOSIS Urine Culture ReflexedSeptember 2024 4:05pmSeptember 2024 4:05pm YES-FRMCUrine Microscopic ReviewSeptember 2024 4:53teFIGTLEY-PmP-6 Ag (CV2AG)April 05, 2025 4:05pmSept2024 4:05pmNEGATIVENEGATIVE This test has not been FDA cleared or approved, but has beenauthorized [...] the declaration isterminated or authorization is revoked sooner.Troponin I High Sensitivity April 05, 2025 4:18pmSept2024 4:18pm7.2 pg/mL4.0-76.1CUT-OFF POINTS HAVE BEEN ESTABLISHED BASED ON THE FOURTHUNIVERSAL DEFINITION OF MYOCARDIAL INFARCTION. THE UPPERREFERENCE LIMIT (URL) OF TROPONIN, DEFINED THE 99THPERCENTILE OF cTnI DISTRIBUTION IN A REFERENCE POPULATION,HAS BEEN CONFIRMED THE DECISION THRESHOLD FOR MIDIAGNOSIS.99TH PERCENTILE = 76.2 PG/MLNOTE: HIGH-SENSITIVITY TROPONIN ASSAY IS NOT INTENDED TO BEUSED IN ISOLATION BUT SHOULD BE INTERPRETED IN CONJUNCTIONWITH OTHER DIAGNOSTIC AND CLINICAL INFORMATION.B-Type Natriuretic PeptideSept2024 4:48pm April 05, 2025 4:55cc510.0 pg/mL<=900.0Lactic Acid LevelSept2024 6:18pmSept2024 6:18pm1.4 mmol/L0.4-2.0Magnesium LevelSept2024 5:56amSept2024 5:56am2.0 mg/dL1.8-2.4Anion GapSept2024 5:56amSept2024 5:56am8.4Troponin I High Sensitivity April 06, 2025 5:56amSept2024 5:56am6.3 pg/mL4.0-76.1CUT-OFF POINTS HAVE BEEN ESTABLISHED BASED ON THE FOURTHUNIVERSAL DEFINITION OF MYOCARDIAL INFARCTION. THE UPPERREFERENCE LIMIT (URL) OF TROPONIN, DEFINED THE 99THPERCENTILE OF cTnI DISTRIBUTION IN A REFERENCE POPULATION,HAS BEEN CONFIRMED THE DECISION THRESHOLD FOR MIDIAGNOSIS.99TH PERCENTILE = 76.2 PG/MLNOTE: HIGH-SENSITIVITY TROPONIN ASSAY IS NOT INTENDED TO BEUSED IN ISOLATION BUT SHOULD BE INTERPRETED IN CONJUNCTIONWITH OTHER DIAGNOSTIC AND CLINICAL INFORMATION.Basophils # (Auto)April 06, 2025 5:56amSept2024 5:56am0.0 10 3/uL0.0-0.1Glucose LevelSept2024 10:00pm April 06, 2025 10:93mv779 mg/dLAbove upper panic getnzq19-295FKFEVBT CALLED TO ASHLEY LEÓN RN @BY Gely Bradley at 2259Anion GapSept2024 5:35amSept2024 5:35am7.8HematocritSept2024 5:35amSept2024 5:35am41.1 %Below low fcdqic86.0-54.0Vancomycin Level TroughSept2024 9:01amSept2024 9:01am17.2 ug/mL5.0-20.0 Anion GapSept2024 5:22amSept2024 5:22am7.2Hematocrit April 08, 2025 5:22amSept2024 5:22am42.3 %42.0-54.0C-Reactive Protein, QuantitativeSept2024 6:22amSept2024 6:22am3.25 mg/dLAbove high normal<=0.50Anion [facility]2024 6:22am8.0Hematocrit April 09, 2025 6:22amSept2024 6:22am41.7 %Below low normal 42.0-54.0Anion [facility] 2024 11:04amSeptember 2024 11:04am3.9 HematocritSeptember 2024 11:04amSeptember 2024 11:04am43.4 % 42.0-54.0Albumin/Globulin RatioSeptember 2024 3:00pmSeptember 2024 3:00pm0.4Basophils %April 05, 2025 3:00pmSeptember 2024 3:00pm1.0 % 0.2-2.0HemoglobinSeptember 2024 3:00pm14.9 g/dL14.0-18.0Prothrombin Time April 05, 2025 3:00pmSeptember 2024 3:00pm11.0 sec9.0-11.6Urine Other CastsSeptember 2024 4:05pmSeptember 2024 4:05pmNONE SEEN #/LPF NONE SEENUrine BilirubinSeptember 2024 4:05pmNEGATIVENEGATIVE Albumin/Globulin RatioSeptember 2024 5:56amSeptember 2024 5:56am0.3 Basophils (%) (Auto)April 06, 2025 5:56amSeptember 2024 5:56am0.1 % Below low normal0.2-2.0BUN/Creatinine RatioSeptember 2024 5:35amSeptember 2024 5:35am28.2HemoglobinSeptember 2024 5:35amSeptember 2024 5:35am13.5 g/dLBelow low .0-18.0BUN/Creatinine RatioSeptember 2024 5:22amSeptember 2024 5:22am32.1HemoglobinSeptember 2024 5:22am April 08, 2025 5:22am13.6 g/dLBelow low xsqwvi79.0-18.0BUN/Creatinine RatioSeptember 2024 6:22am22.7HemoglobinSeptember 2024 6:22am April 09, 2025 6:22am13.1 g/dLBelow low nmyyzy82.0-18.0BUN/Creatinine RatioSept2024 11:04amSept2024 11:04am19.1Hemoglobin April 12, 2025 11:04amSeptember 2024 11:04am13.6 g/dLBelow low ojwswb49.0-18.0AlbuminSeptember 2024 3:00pmSeptember 2024 3:00pm2.1 g/dLBelow low normal3.4-5.0Eosinophils # (Manual)April 05, 2025 3:00pm April 05, 2025 3:00pm0.00 10 3/uL0.00-0.70Mean Corpuscular Hemoglobin April 05, 2025 3:00pm31.2 pg25.9-34.0Urine Other CrystalsSeptember 2024 4:05pmSeptember 2024 4:05pmNone Seen #/HPFNone SeenUrine Occult Blood April 05, 2025 4:05pmLARGEAbnormal (applies to non-numeric results) NEGATIVEAlbuminSeptember 2024 5:56amSeptember 2024 5:56am1.8 g/dL Below low normal3.4-5.0Eosinophils # (Auto)April 06, 2025 5:56amSeptember 2024 5:56am0.0 10 3/uL0.0-0.7Blood Urea NitrogenSeptember 2024 5:35amSeptember 2024 5:35am29.0 mg/dLAbove high normal7.0-18.0Mean Corpuscular HemoglobinSeptember 2024 5:35amSeptember 2024 5:35am30.7 pg25.9-34.0Blood Urea NitrogenSeptember 2024 5:22amSeptember 2024 5:22am26.0 mg/dLAbove high normal7.0-18.0Mean Corpuscular HemoglobinSeptember 2024 5:22amSeptember 2024 5:22am30.9 pg25.9-34.0Blood Urea Nitrogen April 09, 2025 6:22am20.0 mg/dLAbove high normal7.0-18.0Mean Corpuscular HemoglobinSeptember 2024 6:22amSeptember 2024 6:22am30.8 pg25.9-34.0 Blood Urea NitrogenSeptember 2024 11:04amSeptember 2024 11:04am17.0 mg/dL7.0-18.0Mean Corpuscular HemoglobinSeptember 2024 11:04amSeptember 2024 11:04am31.1 pg25.9-34.0Alkaline PhosphataseSeptember 2024 3:00pmSeptember 2024 3:30mk031 U/LAbove high cdeneb66-868Lgzcfrdlycm % April 05, 2025 3:00pmSeptember 2024 3:00pm0.0 %Below low normal 0.9-7.0Mean Corpuscular Hemoglobin ConcentSeptember 2024 3:00pm34.5 g/dL 29.9-35.2Urine BacteriaSeptember 2024 4:05pmSeptember 2024 4:05pm MODERATE #/HPFAbnormal (applies to non-numeric results)NONE SEENUrine Appearance April 05, 2025 4:05pmSL CLOUDYCLEARAlkaline PhosphataseSeptember 2024 5:56amSeptember 2024 5:59hy912 U/LAbove high -811Adbldsqqpaq (%) (Auto)April 06, 2025 5:56amSeptember 2024 5:56am0.0 %Below low normal0.9-7.0Calcium LevelSeptember 2024 5:35amSeptember 2024 5:35am 9.0 mg/dL8.5-10.1Mean Corpuscular Hemoglobin ConcentSeptember 2024 5:35am April 07, 2025 5:35am32.8 g/dL29.9-35.2Calcium LevelSeptember 2024 5:22amSeptember 2024 5:22am9.6 mg/dL8.5-10.1Mean Corpuscular Hemoglobin ConcentSeptember 2024 5:22amSeptember 2024 5:22am32.2 g/dL29.9-35.2 Calcium LevelSeptember 2024 6:22am9.0 mg/dL8.5-10.1Mean Corpuscular Hemoglobin ConcentSeptember 2024 6:22amSeptember 2024 6:22am31.4 g/dL29.9-35.2Calcium LevelSeptember 2024 11:04amSeptember 2024 11:04am9.8 mg/dL8.5-10.1Mean Corpuscular Hemoglobin ConcentSeptember 2024 11:04amSeptember 2024 11:04am31.3 g/dL29.9-35.2Alanine Aminotransferase (ALT/SGPT)April 05, 2025 3:00pmSeptember 2024 3:00pm14 U/LBelow low ayqbrw95-14Yfcqegkvvex # (Manual)April 05, 2025 3:00pmSeptember 2024 3:00pm0.74 10 3/uLBelow low normal1.20-3.80Mean Corpuscular VolumeSeptember 2024 3:00pm90.4 fL80.0-94.0Urine MucusSeptember 2024 4:05pmSeptember 2024 4:05pmNONE SEENNONE SEENUrine ColorSeptember 2024 4:05pmLT. YELLOWYELLOWAlanine Aminotransferase (ALT/SGPT)April 06, 2025 5:56am April 06, 2025 5:56am13 U/LBelow low ocdxam20-42SqmadflvkdWrcptfgkn 2024 5:56amSeptember 2024 5:56am40.8 %Below low kshgco42.0-54.0Chloride LevelSeptember 2024 5:35amSeptember 2024 5:35am97 mmol/LBelow low utewtz72-873Tmgp Corpuscular VolumeSeptember 2024 5:35amSeptember 2024 5:35am93.4 fL80.0-94.0Chloride LevelSeptember 2024 5:22amSeptember 2024 5:72pa524 mmol/H70-728Sfod Corpuscular VolumeSeptember 2024 5:22amSeptember 2024 5:22am96.1 fLAbove high pwbucn29.0-94.0Chloride Level April 09, 2025 6:67pn602 mmol/Q62-408Jeqj Corpuscular VolumeSeptember 2024 6:22amSeptember 2024 6:22am97.9 fLAbove high jsxxte68.0-94.0 Chloride LevelSeptember 2024 11:04amSeptember 2024 11:24uo665 mmol/L 98-107Mean Corpuscular VolumeSeptember 2024 11:04amSeptember 2024 11:04am99.3 fLAbove high oaioxd57.0-94.0Aspartate Amino Transf (AST/SGOT) April 05, 2025 3:00pmSeptember 2024 3:00pm11 U/LBelow low normal 15-37Lymphocytes %April 05, 2025 3:00pmSeptember 2024 3:00pm4.0 % Below low straez68.5-60.0Mean Platelet VolumeSeptember 2024 3:00pm11.8 fL 9.5-13.5Urine RBCSept2024 4:05pmSeptember 2024 4:55zl42-32 #/HPFAbnormal (applies to non-numeric results)0-2Urine Glucose (UA)April 05, 2025 4:05pm>=1000 mg/dLAbnormal (applies to non-numeric results)NEGATIVE Aspartate Amino Transf (AST/SGOT)April 06, 2025 5:56amSeptember 2024 5:56am15 U/L69-84EjeesnbdazCabjnhlkh 2024 5:56amSeptember 2024 5:56am14.0 g/dL14.0-18.0Carbon Dioxide LevelSeptember 2024 5:35amSeptember 2024 5:35am33.8 mmol/LAbove high xjqxiw79.0-32.0Mean Platelet Volume April 07, 2025 5:35amSeptember 2024 5:35am11.1 fL9.5-13.5Carbon Dioxide LevelSeptember 2024 5:22amSeptember 2024 5:22am35.0 mmol/L Above high innjiq29.0-32.0Mean Platelet VolumeSeptember 2024 5:22am April 08, 2025 5:22am10.8 fL9.5-13.5Carbon Dioxide LevelSeptember 2024 6:22am33.1 mmol/LAbove high lgyzpb81.0-32.0Mean Platelet VolumeSeptember 2024 6:22amSeptember 2024 6:22am11.0 fL9.5-13.5Carbon Dioxide Level April 12, 2025 11:04amSeptember 2024 11:04am40.3 mmol/LAbove high ujrndn24.0-32.0Mean Platelet VolumeSeptember 2024 11:04amSeptember 2024 11:04am10.1 fL9.5-13.5BUN/Creatinine RatioSeptember 2024 3:00pm April 05, 2025 3:00pm20.0Monocytes # (Manual)April 05, 2025 3:00pm April 05, 2025 3:00pm1.30 10 3/uLAbove high normal0.30-0.80Platelet Count April 05, 2025 3:79xx221 10 3/xQ503-172Milct Squamous Epithelial Cells April 05, 2025 4:05pmSeptember 2024 4:05pmRARE #/LPFNONE/RAREUrine KetonesSept2024 4:05pmNEGATIVE mg/dLNEGATIVEBUN/Creatinine Ratio April 06, 2025 5:56amSeptember 2024 5:56am24.8Immature Granulocyte # (Auto)April 06, 2025 5:56amSeptember 2024 5:56am0.14 10 3/uLAbove high normal0.00-0.03CreatinineSeptember 2024 5:35amSeptember 2024 5:35am1.03 mg/dL0.70-1.30Platelet CountSeptember 2024 5:35amSeptember 2024 5:63zd338 10 3/lN865-542HrelezmzjpCtvovvwko 2024 5:22am April 08, 2025 5:22am0.81 mg/dL0.70-1.30Platelet CountSeptember 2024 5:22amSeptember 2024 5:75ma523 10 3/gH632-255HysucouuiuDwkyiisfs 2024 6:22am0.88 mg/dL0.70-1.30Platelet CountSeptember 2024 6:22amSeptember 2024 6:75pn093 10 3/aG064-769QqeyyzrwilSwysnafgl 2024 11:04am April 12, 2025 11:04am0.89 mg/dL0.70-1.30Platelet CountSeptember 2024 11:04amSeptember 2024 11:26aw918 10 3/tH133-852Uswwc Urea Nitrogen April 05, 2025 3:00pmSeptember 2024 3:00pm29.0 mg/dLAbove high normal7.0-18.0Monocytes %April 05, 2025 3:00pmSept2024 3:00pm 7.0 %1.7-12.0Red Blood CountSeptember 2024 3:00pm4.78 10 6/uL4.70-6.10 Urine WBCSept2024 4:05pmSeptember 2024 4:39tn58-57 #/HPF Abnormal (applies to non-numeric results)NONE SEENUrine Leukocyte Esterase April 05, 2025 4:05pmTRACEAbnormal (applies to non-numeric results) NEGATIVEBlood Urea NitrogenSeptember 2024 5:56amSeptember 2024 5:56am33.0 mg/dLAbove high normal7.0-18.0Immature Granulocyte % (Auto)April 06, 2025 5:56amSeptember 2024 5:56am0.8 %Above high normal0.0-0.5 Estimated GFR ()April 07, 2025 5:35amSeptember 2024 5:35am>60>=60 mL/min/1.73m 2Red Blood CountSeptember 2024 5:35amSeptember 2024 5:35am4.40 10 6/uLBelow low normal4.70-6.10Estimated GFR ()April 08, 2025 5:22amSeptember 2024 5:22am>60>=60 mL/min/1.73m 2Red Blood CountSeptember 2024 5:22amSeptember 2024 5:22am4.40 10 6/uLBelow low normal4.70-6.10Estimated GFR () April 09, 2025 6:22am>60>=60 mL/min/1.73m 2Red Blood CountSeptember 2024 6:22amSeptember 2024 6:22am4.26 10 6/uLBelow low normal4.70-6.10 Estimated GFR ()April 12, 2025 11:04amSeptember 2024 11:04am>60>=60 mL/min/1.73m 2Red Blood CountSeptember 2024 11:04am April 12, 2025 11:04am4.37 10 6/uLBelow low normal4.70-6.10Calcium Level April 05, 2025 3:00pmSeptember 2024 3:00pm10.1 mg/dL8.5-10.1 Segmented Neutrophils # (Manual)April 05, 2025 3:00pmSeptember 2024 3:00pm16.36 10 3/uLAbove high normal1.4-6.5Red Cell Distribution WidthSeptember 2024 3:00pm14.8 %11.0-15.0Urine YeastSeptember 2024 4:05pmSeptember 2024 4:05pmSEENAbnormal (applies to non-numeric results)NONE SEENUrine NitriteSeptember 2024 4:05pmNEGATIVENEGATIVECalcium LevelSeptember 2024 5:56amSept2024 5:56am9.7 mg/dL8.5-10.1Lymphocytes # (Auto) April 06, 2025 5:56amSeptember 2024 5:56am0.5 10 3/uLBelow low normal1.2-3.8Estimated GFR (Non- AmericanSept2024 5:35am April 07, 2025 5:35am>60>=60 mL/min/1.73m 2Red Cell Distribution Width April 07, 2025 5:35amSept2024 5:35am14.7 %11.0-15.0Estimated GFR (Non- AmericanSept2024 5:22amSeptember 2024 5:22am >60>=60 mL/min/1.73m 2Red Cell Distribution WidthSeptember 2024 5:22am April 08, 2025 5:22am14.8 %11.0-15.0Estimated GFR (Non- April 09, 2025 6:22am>60>=60 mL/min/1.73m 2Red Cell Distribution Width April 09, 2025 6:22amSept2024 6:22am15.0 %11.0-15.0Estimated GFR (Non- AmericanSeptember 2024 11:04amSeptember 2024 11:04am>60>=60 mL/min/1.73m 2Red Cell Distribution WidthSeptember 2024 11:04amSeptember 2024 11:04am15.1 %Above high .0-15.0Chloride LevelSeptember 2024 3:00pmSeptember 2024 3:00pm89 mmol/LBelow low -626Oehburove NeutrophilsSeptember 2024 3:00pmSeptember 2024 3:00pm88.0Above high qchgwy42.0-75.0Corrected White Blood CountSeptember 2024 3:00pm18.6 10 3/uLAbove high normal4.0-11.0Urine pHSeptember 2024 4:05pm6.05.0-9.0Chloride LevelSeptember 2024 5:56amSeptember 2024 5:56am94 mmol/LBelow low ytddcs80-740Rulnejnfhzo (%) (Auto)April 06, 2025 5:56amSeptember 2024 5:56am2.9 %Below low qonmax29.5-60.0Glucose Level April 07, 2025 5:35amSeptember 2024 5:83my201 mg/dLAbove high normal 74-106Corrected White Blood CountSeptember 2024 5:35amSeptember 2024 5:35am18.7 10 3/uLAbove high normal4.0-11.0Glucose LevelSeptember 2024 5:22amSeptember 2024 5:39cp622 mg/dLAbove high -877Rktrwtofw White Blood CountSeptember 2024 5:22amSeptember 2024 5:22am13.8 10 3/uL Above high normal4.0-11.0Glucose LevelSeptember 2024 6:89dz891 mg/dLAbove high xgzqxy22-352Jxkjiiyeb White Blood CountSeptember 2024 6:22amSeptember 2024 6:22am12.1 10 3/uLAbove high normal4.0-11.0Glucose LevelSeptember 2024 11:04amSeptember 2024 11:46mu962 mg/dLAbove high blfyoa23-849 Corrected White Blood CountSeptember 2024 11:04amSeptember 2024 11:04am10.1 10 3/uL4.0-11.0Carbon Dioxide LevelSeptember 2024 3:00pm April 05, 2025 3:00pm29.3 mmol/L21.0-32.0Urine ProteinSeptember 2024 4:05pm30 mg/dLAbnormal (applies to non-numeric results)NEG/TRACECarbon Dioxide LevelSeptember 2024 5:56amSeptember 2024 5:56am31.1 mmol/L21.0-32.0 Mean Corpuscular HemoglobinSeptember 2024 5:56amSeptember 2024 5:56am31.5 pg25.9-34.0Potassium LevelSeptember 2024 5:35amSeptember 2024 5:35am3.6 mmol/L3.5-5.1Potassium LevelSeptember 2024 5:22amSeptember 2024 5:22am4.2 mmol/L3.5-5.1Potassium LevelSeptember 2024 6:22am4.1 mmol/L3.5-5.1Potassium LevelSeptember 2024 11:04amSeptember 2024 11:04am5.2 mmol/LAbove high normal3.5-5.1CreatinineSeptember 2024 3:00pm April 05, 2025 3:00pm1.45 mg/dLAbove high normal0.70-1.30Urine Specific GravitySeptember 2024 4:05pm1.0101.005-1.025CreatinineSeptember 2024 5:56amSeptember 2024 5:56am1.33 mg/dLAbove high normal0.70-1.30Mean Corpuscular Hemoglobin ConcentSeptember 2024 5:56amSeptember 2024 5:56am34.3 g/dL29.9-35.2Sodium LevelSeptember 2024 5:35amSeptember 2024 5:53av706 mmol/LBelow low idvtfp275-964Aavkiz LevelSeptember 2024 5:22amSeptember 2024 5:19ey739 mmol/Q519-451Ylimnv LevelSeptember 2024 6:92yh957 mmol/Z540-291Ycxyfz LevelSeptember 2024 11:04amSeptember 2024 11:27ez550 mmol/S372-421Hfjtwvqux GFR ()April 05, 2025 3:00pmSeptember 2024 3:49eo45Rvygz low normal>=60 mL/min/1.73m 2Urine UrobilinogenSeptember 2024 4:05pm0.2 EU/dL0.2-1.0Estimated GFR ()April 06, 2025 5:56amSeptember 2024 5:56am>60>=60 mL/min/1.73m 2Mean Corpuscular VolumeSeptember 2024 5:56amSeptember 2024 5:56am91.9 fL80.0-94.0Estimated GFR (Non- AmericanSeptember 2024 3:00pmSeptember 2024 3:30ka62Wzosq low normal>=60 mL/min/1.73m 2 Estimated GFR (Non- AmericanSeptember 2024 5:56amSeptember 2024 5:65su21Fiujs low normal>=60 mL/min/1.73m 2Monocytes # (Auto)April 06, 2025 5:56amSeptember 2024 5:56am0.9 10 3/uLAbove high normal0.3-0.8 GlobulinSeptember 2024 3:00pmSeptember 2024 3:00pm5.6 g/dLGlobulin April 06, 2025 5:56amSeptember 2024 5:56am5.3 g/dLMonocytes (%) (Auto)April 06, 2025 5:56amSeptember 2024 5:56am5.1 %1.7-12.0Glucose LevelSeptember 2024 3:00pmSeptember 2024 3:66ip361 mg/dLAbove high eprisz80-685Nwqn Platelet VolumeSeptember 2024 5:56amSept2024 5:56am11.0 fL9.5-13.5Potassium LevelSept2024 3:00pmSeptember 2024 3:00pm4.0 mmol/L3.5-5.1Potassium LevelSeptember 2024 5:56amSept2024 5:56am3.5 mmol/L3.5-5.1Neutrophils # (Auto)April 06, 2025 5:56amSeptember 2024 5:56am16.2 10 3/uLAbove high normal1.4-6.5Sodium LevelSept2024 3:00pmSeptember 2024 3:22kh079 mmol/LBelow low nxocvn095-133Vdtdbx LevelSept2024 5:56amSeptember 2024 5:56am 130 mmol/LBelow low coufjc613-657Wjgilmnzhxr (%) (Auto)April 06, 2025 5:56amSeptember 2024 5:56am91.1 %Above high sulqmg30.0-75.0Total Bilirubin April 05, 2025 3:00pmSept2024 3:00pm1.5 mg/dLAbove high normal 0.2-1.0Total BilirubinSept2024 5:56amSeptember 2024 5:56am0.9 mg/dL0.2-1.0Platelet CountSeptember 2024 5:56amSeptember 2024 5:56am 268 10 3/wI484-125Llkbi ProteinSept2024 3:00pmSept2024 3:00pm7.7 g/dL6.4-8.2Total ProteinSeptember 2024 5:56amSeptember 2024 5:56am7.1 g/dL6.4-8.2Red Blood CountSeptember 2024 5:56amSeptember 17th, 2025 5:56am4.44 10 6/uLBelow low normal4.70-6.10Red Cell Distribution WidthSeptember 2024 5:56amSeptember 2024 5:56am14.8 %11.0-15.0 Corrected White Blood CountSeptember 2024 5:56amSeptember 2024 5:56am17.8 10 3/uLAbove high normal4.0-11.0 Microbiology Results Procedure Source Result Collection Date/Time Result Date/Time Result Comment Performing Site Urine Culture Urine, Clean-Voided Midstream Enterobacter cloacae complex April 05, 2025 4:05pm April 08, 2025 9:41am [facility] [id number] [address] [place] [address] Vital Signs Vital Reading Result Reference Range Collection Date/Time Height 71 [in_i] February 01, 2025 2:32reAmdphd854.62 kgJuly 2024 2:09pmBody Mwhdwrjgayw08.5 [degF]97.6-99.0July 2024 2:09pmHeart Fgod593 /isj08-803Bpfq 2024 2:09pmOxygen saturation by Pulse nmletjsc00 %95-100July 2024 2:09pmBP Bwjmkzzr823 mm[Hg]100-140July 2024 2:09pmBP Woikdrcmg00 mm[Hg]60-100July 2024 2:09pmBMI (Body Mass Index)41.7 kg/m2July 2024 2:35mmKmgxqm17 [in_i]April 28, 2025 2:00pmBody Vmpeyctxwbl17.9 [degF]97.6-99.0October 2024 2:00pmHeart Rate86 /tzs73-632Swwlrbl 2024 2:00pmOxygen saturation by Pulse vlauuiaf48 %95-100October 2024 2:00pmBP Htlpjcbm436 mm[Hg]100-140 April 28, 2025 2:00pmBP Kptqoovgm23 mm[Hg]60-100October 2024 2:00pm Advance Directives Advance Directive Response Recorded Date/ Time Advance Directives No March 2:40pm Insurance Providers Guarantor Onofre Mckinney Address [address] [facility] [address]Aehxybw Info.Home Phone: Payer Policy Id Subscriber's Name Subscriber Id Effectiv e Date Expiration Date Dev[employer] Plans [facility] PFLAXMI [id number] Onofre Mckinney [id number] [employer] [place] [id number] W [id number] Insurance [id number] W [id number] [id number] Travon Mckinney [id number] Encounters Encounter Location(s) Arrival/Admit Date Discharge/Depart Date Provider(s) Departed Physician/Prov ider Office Visit -[facility] February 01, 2025 2:06pm February 01, 2025 3:08pm Dara Eisenberg APRN MARKETING SPECIALIST Non-patient / Non-visit -[facility] April 05, 2025 3:00pm MARGARITA Shavereparted [facility] 4:05pm[facility] 2024 4:06pmNara Shaver-patient / Non-visit- [facility]September 2024 1:02amNara Noland- patient / Bhx-hvkot-[facility] 2024 5:35amNara Noland-patient / Qez-gefgs-Drnwz [facility] 2024 5:22amNara Noland-patient / Jny-qvqbg-Pwkdm [facility] April 09, 2025 6:22amNara Noland-patient / Yfz-hnmld-Bqvrf [facility]September 2024 11:04amNara Noland-patient / [facility]dt[facility] 8:12amCatsofia Blevins CMADeparted Physician/Provider [facility] 1:53pmOctober 2024 3:09pmJennifer Rohrbacher , HELPDESK MANAGER MARKETING SPECIALIST Recent Diagnosis Onset Date Admit Date Atrial flutter Unknown February 01, 2025 2:06pm COPD (chronic obstructive pulmonary disease) Unk nown February 01, 2025 2:06pm Heart failure Unknown February 01, 2025 2:06pm Hypertension Unknown February 01, 2025 2:06pm Mixed hyperlipidemia Unknown February 01, 2025 2:06pm Nicotine dependence Unknown February 01, 2 025 2:06pm Non-compliance Unknown February 01, 2025 [...] Date Resolution Status Admit Date Atrial flutter acuteJuly 2024 2:06pmCOPD (chronic obstructive pulmonary disease)acuteJuly 2024 2:06pmHeart failureacuteJuly 2024 2:06pmHypertensionacuteJuly 2024 2:06pmMixed hyperlipidemiaacuteJuly 2024 2:06pmNicotine dependenceacuteJuly 2024 2:06pmNon-complianceacuteJuly 2024 2:06pm Non-healing wound of left lower extremityacuteJuly 2024 2:06pmNon-healing wound of right lower extremityacuteJuly 2024 2:06pmOxygen dependentacute February 01, 2025 2:06pmSleep disturbanceacuteJuly 2024 2:06pmStatus post partial amputation of right footacuteJuly 2024 2:06pmType 2 diabetes mellitusacuteJuly 2024 2:06pmType 2 diabetes mellitus with diabetic neuropathyacuteJuly 2024 2:06pmVenous insufficiency (chronic) (peripheral) acuteJuly 2024 2:06pmAtrial flutteracuteOctober 2024 1:53pmHeart failureacuteOctober 2024 1:53pmType 2 diabetes mellitus with diabetic neuropathyacuteOctober 2024 1:53pm Plan of Treatment Author [facility] Eisenberg [facility] 9:68ozD8r 11 Currently on Glipizide and Lantus But [...] currency taking Coumadin and is following with [facility] coumadin clinic. Continue Lasix. Discussed definition of heart failure as well as etiology, treatments, and medications relating to decreasing heart failure exacerbations in the future. Encouraged patient to weigh self every morning before breakfast and inform php website developer if weight increases more than 2 pounds [...] medical noncompliance explained to patient, including CVA, [place], kidney damage, even sudden . We discussed [...]
--- OUTSIDE RECORDS SUMMARY | 2025-05-10 14:48 | XMS_ITS | Patient Health Record ---
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[employer] Name Role Phone Dara Eisenberg CNP Primary Care Provider U navailable Results Component Value Reference Range Notes Aerobic Culture (Not yet rev iewed by provider) Interpretation: Performing Lab: Notes/Report: LEFT LOWER LEG WOUND [facility] , Aerobic Culture See Below For Report Aerobic Culture Organism: Staphylococcus aureus : O:MRSA Isolated O:STAAUR Isolated Organism: 1.1 Antibiotic Interpretation CHEN Status Aerobic Culture*ABNORMAL* Aerobic Culture Organism: Staphylococcus aureus : O:MRSA Isolated O:STAAUR Isolated Organism: 1.1 Antibiotic Interpretation CHEN Status Aerobic CultureModerate growth Aerobic Culture Organism: Staphylococcus aureus : O:MRSA Isolated O:STAAUR Isolated Organism: 1.1 Antibiotic Interpretation CHEN Status Aerobic CultureStaphylococcus aureus Aerobic Culture Organism: Staphylococcus aureus : O:MRSA Isolated O:STAAUR Isolated Organism: 1.1 Antibiotic Interpretation CHEN Status Aerobic CultureOrganism: Methicillin Resis Staph Aureus : Aerobic Culture Organism: Staphylococcus aureus : O:MRSA Isolated O:STAAUR Isolated Organism: 1.1 Antibiotic Interpretation CHEN Status Aerobic Culture*ABNORMAL* Aerobic Culture Organism: Staphylococcus aureus : O:MRSA Isolated O:STAAUR Isolated Organism: 1.1 Antibiotic Interpretation CHEN Status Aerobic CultureMethicillin - resistant Aerobic Culture Organism: Staphylococcus aureus : O:MRSA Isolated O:STAAUR Isolated Organism: 1.1 Antibiotic Interpretation CHEN Status Aerobic CultureBased on resistance to oxacillin this isolate would be Aerobic Culture Organism: Staphylococcus aureus : O:MRSA Isolated O:STAAUR Isolated Organism: 1.1 Antibiotic Interpretation CHEN Status Aerobic Cultureresistant to all currently available beta-lactam Aerobic Culture Organism: Staphylococcus aureus : O:MRSA Isolated O:STAAUR Isolated Organism: 1.1 Antibiotic Interpretation CHEN Status Aerobic Cultureantimicrobial agents, with the exception of the newer Aerobic Culture Organism: Staphylococcus aureus : O:MRSA Isolated O:STAAUR Isolated Organism: 1.1 Antibiotic Interpretation CHEN Status Aerobic Culturecephalosporins with anti-MRSA activity, such as Aerobic Culture Organism: Staphylococcus aureus : O:MRSA Isolated O:STAAUR Isolated Organism: 1.1 Antibiotic Interpretation CHEN Status Aerobic CultureCeftaroline Aerobic Culture Organism: Staphylococcus aureus : O:MRSA Isolated O:STAAUR Isolated Organism: 1.1 Antibiotic Interpretation CHEN Status Aerobic CultureModerate growth Aerobic Culture Organism: Staphylococcus aureus : O:MRSA Isolated O:STAAUR Isolated Organism: 1.1 Antibiotic Interpretation CHEN Status Aerobic CultureMethicillin Resis Staph Aureus Aerobic Culture Organism: Staphylococcus aureus : O:MRSA Isolated O:STAAUR Isolated Organism: 1.1 Antibiotic Interpretation CHEN Status Aerobic CultureSee Below For Report Aerobic Culture Organism: Staphylococcus aureus : O:MRSA Isolated O:STAAUR Isolated Organism: 1.1 Antibiotic Interpretation CHEN Status Aerobic CultureSee Below For Report Aerobic Culture Organism: Staphylococcus aureus : O:MRSA Isolated O:STAAUR Isolated Organism: 1.1 Antibiotic Interpretation CHEN Status Aerobic CulturePerformed at: [facility] Aerobic Culture Organism: Staphylococcus aureus : O:MRSA Isolated O:STAAUR Isolated Organism: 1.1 Antibiotic Interpretation CHEN Status Aerobic [id number] [place], [place] [id number] Aerobic Culture Organism: Staphylococcus aureus : O:MRSA Isolated O:STAAUR Isolated Organism: 1.1 Antibiotic Interpretation CHEN Status Aerobic CultureLab Director: Tyron Saeed PhD, Phone: [phone] Aerobic Culture Organism: Staphylococcus aureus : O:MRSA Isolated O:STAAUR Isolated Organism: 1.1 Antibiotic Interpretation CHEN Status Aerobic CultureSee Below For Report Aerobic Culture Organism: Staphylococcus aureus : O:MRSA Isolated O:STAAUR Isolated Organism: 1.1 Antibiotic Interpretation CHEN Status Aerobic CultureCiprofloxacin R F Aerobic Culture Organism: Staphylococcus aureus : O:MRSA Isolated O:STAAUR Isolated Organism: 1.1 Antibiotic Interpretation CHEN Status Aerobic CultureErythromycin R F Aerobic Culture Organism: Staphylococcus aureus : O:MRSA Isolated O:STAAUR Isolated Organism: 1.1 Antibiotic Interpretation CHEN Status Aerobic CultureGentamicin S F Aerobic Culture Organism: Staphylococcus aureus : O:MRSA Isolated O:STAAUR Isolated Organism: 1.1 Antibiotic Interpretation CHEN Status Aerobic CultureLevofloxacin R F Aerobic Culture Organism: Staphylococcus aureus : O:MRSA Isolated O:STAAUR Isolated Organism: 1.1 Antibiotic Interpretation CHEN Status Aerobic CultureLinezolid S F Aerobic Culture Organism: Staphylococcus aureus : O:MRSA Isolated O:STAAUR Isolated Organism: 1.1 Antibiotic Interpretation CHEN Status Aerobic CultureOxacillin R F Aerobic Culture Organism: Staphylococcus aureus : O:MRSA Isolated O:STAAUR Isolated Organism: 1.1 Antibiotic Interpretation CHEN Status Aerobic CulturePenicillin R F Aerobic Culture Organism: Staphylococcus aureus : O:MRSA Isolated O:STAAUR Isolated Organism: 1.1 Antibiotic Interpretation CHEN Status Aerobic CultureRifampin S F Aerobic Culture Organism: Staphylococcus aureus : O:MRSA Isolated O:STAAUR Isolated Organism: 1.1 Antibiotic Interpretation CHEN Status Aerobic CultureTetracycline S F Aerobic Culture Organism: Staphylococcus aureus : O:MRSA Isolated O:STAAUR Isolated Organism: 1.1 Antibiotic Interpretation CHEN Status Aerobic CultureTrimethoprim/Sulfamethoxazole R F Aerobic Culture Organism: Staphylococcus aureus : O:MRSA Isolated O:STAAUR Isolated Organism: 1.1 Antibiotic Interpretation CHEN Status Aerobic CultureVancomycin S F Aerobic Culture Organism: Staphylococcus aureus : O:MRSA Isolated O:STAAUR Isolated Organism: 1.1 Antibiotic Interpretation CHEN Status Aerobic CultureClindamycin S F Aerobic Culture Organism: Staphylococcus aureus : O:MRSA Isolated O:STAAUR Isolated Organism: 1.1 Antibiotic Interpretation CHEN Status Performing Lab:see note LC - [facility] LB SEE REPORT - Rn Long Term Care Id information not found for OBX-specific 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 Anaerobic Culture (Not yet reviewed by provider) Interpretation: Performing Lab: Notes/Report: LEFT LOWER LEG WOUND [facility] ,Anaerobic CultureSee Below For Report Anaerobic Culture Anaerobic CultureNo anaerobic growth in 72 hours. Anaerobic Culture Performing Lab:see noteLC - [facility] LBAerobic Culture (Not yet reviewed by provider) Interpretation: Performing Lab: Notes/Report: LEFT LOWER LEG WOUND [facility] ,Aerobic CultureSee Below For Report Aerobic Culture Organism: Staphylococcus aureus : O:MRSA Isolated O:STAAUR Isolated Organism: 2.1 Antibiotic Interpretation CHEN Status Ciprofloxacin Ciprofloxacin R F Erythromycin Erythromycin R F Gentamicin Gentamicin S F Levofloxacin Levofloxacin R F Linezolid Linezolid S F Oxacillin Oxacillin R F Penicillin Penicillin R F Rifampin Rifampin S F Tetracycline Tetracycline S F Trimethoprim/Sulfamethoxazole Trimethoprim/Sulfamethoxazole R F Vancomycin Vancomycin S F Clindamycin Clindamycin S F Aerobic Culture*ABNORMAL* Aerobic Culture Organism: Staphylococcus aureus : O:MRSA Isolated O:STAAUR Isolated Organism: 2.1 Antibiotic Interpretation CHEN Status Ciprofloxacin Ciprofloxacin R F Erythromycin Erythromycin R F Gentamicin Gentamicin S F Levofloxacin Levofloxacin R F Linezolid Linezolid S F Oxacillin Oxacillin R F Penicillin Penicillin R F Rifampin Rifampin S F Tetracycline Tetracycline S F Trimethoprim/Sulfamethoxazole Trimethoprim/Sulfamethoxazole R F Vancomycin Vancomycin S F Clindamycin Clindamycin S F Aerobic CultureModerate growth Aerobic Culture Organism: Staphylococcus aureus : O:MRSA Isolated O:STAAUR Isolated Organism: 2.1 Antibiotic Interpretation CHEN Status Ciprofloxacin Ciprofloxacin R F Erythromycin Erythromycin R F Gentamicin Gentamicin S F Levofloxacin Levofloxacin R F Linezolid Linezolid S F Oxacillin Oxacillin R F Penicillin Penicillin R F Rifampin Rifampin S F Tetracycline Tetracycline S F Trimethoprim/Sulfamethoxazole Trimethoprim/Sulfamethoxazole R F Vancomycin Vancomycin S F Clindamycin Clindamycin S F Aerobic CultureStaphylococcus aureus Aerobic Culture Organism: Staphylococcus aureus : O:MRSA Isolated O:STAAUR Isolated Organism: 2.1 Antibiotic Interpretation CHEN Status Ciprofloxacin Ciprofloxacin R F Erythromycin Erythromycin R F Gentamicin Gentamicin S F Levofloxacin Levofloxacin R F Linezolid Linezolid S F Oxacillin Oxacillin R F Penicillin Penicillin R F Rifampin Rifampin S F Tetracycline Tetracycline S F Trimethoprim/Sulfamethoxazole Trimethoprim/Sulfamethoxazole R F Vancomycin Vancomycin S F Clindamycin Clindamycin S F Aerobic CultureOrganism: Methicillin Resis Staph Aureus : Aerobic Culture Organism: Staphylococcus aureus : O:MRSA Isolated O:STAAUR Isolated Organism: 2.1 Antibiotic Interpretation CHEN Status Ciprofloxacin Ciprofloxacin R F Erythromycin Erythromycin R F Gentamicin Gentamicin S F Levofloxacin Levofloxacin R F Linezolid Linezolid S F Oxacillin Oxacillin R F Penicillin Penicillin R F Rifampin Rifampin S F Tetracycline Tetracycline S F Trimethoprim/Sulfamethoxazole Trimethoprim/Sulfamethoxazole R F Vancomycin Vancomycin S F Clindamycin Clindamycin S F Aerobic Culture*ABNORMAL* Aerobic Culture Organism: Staphylococcus aureus : O:MRSA Isolated O:STAAUR Isolated Organism: 2.1 Antibiotic Interpretation CHEN Status Ciprofloxacin Ciprofloxacin R F Erythromycin Erythromycin R F Gentamicin Gentamicin S F Levofloxacin Levofloxacin R F Linezolid Linezolid S F Oxacillin Oxacillin R F Penicillin Penicillin R F Rifampin Rifampin S F Tetracycline Tetracycline S F Trimethoprim/Sulfamethoxazole Trimethoprim/Sulfamethoxazole R F Vancomycin Vancomycin S F Clindamycin Clindamycin S F Aerobic CultureMethicillin - resistant Aerobic Culture Organism: Staphylococcus aureus : O:MRSA Isolated O:STAR Isolated Organism: 2.1 Antibiotic Interpretation CHEN Status Ciprofloxacin Ciprofloxacin R F Erythromycin Erythromycin R F Gentamicin Gentamicin S F Levofloxacin Levofloxacin R F Linezolid Linezolid S F Oxacillin Oxacillin R F Penicillin Penicillin R F Rifampin Rifampin S F Tetracycline Tetracycline S F Trimethoprim/Sulfamethoxazole Trimethoprim/Sulfamethoxazole R F Vancomycin Vancomycin S F Clindamycin Clindamycin S F Aerobic CultureBased on resistance to oxacillin this isolate would be Aerobic Culture Organism: Staphylococcus aureus : O:MRSA Isolated O:[facility] Isolated Organism: 2.1 Antibiotic Interpretation CHEN Status Ciprofloxacin Ciprofloxacin R F Erythromycin Erythromycin R F Gentamicin Gentamicin S F Levofloxacin Levofloxacin R F Linezolid Linezolid S F Oxacillin Oxacillin R F Penicillin Penicillin R F Rifampin Rifampin S F Tetracycline Tetracycline S F Trimethoprim/Sulfamethoxazole Trimethoprim/Sulfamethoxazole R F Vancomycin Vancomycin S F Clindamycin Clindamycin S F Aerobic Cultureresistant to all currently available beta-lactam Aerobic Culture Organism: Staphylococcus aureus : O:MRSA Isolated O:[facility] Isolated Organism: 2.1 Antibiotic Interpretation CHEN Status Ciprofloxacin Ciprofloxacin R F Erythromycin Erythromycin R F Gentamicin Gentamicin S F Levofloxacin Levofloxacin R F Linezolid Linezolid S F Oxacillin Oxacillin R F Penicillin Penicillin R F Rifampin Rifampin S F Tetracycline Tetracycline S F Trimethoprim/Sulfamethoxazole Trimethoprim/Sulfamethoxazole R F Vancomycin Vancomycin S F Clindamycin Clindamycin S F Aerobic Cultureantimicrobial agents, with the exception of the newer Aerobic Culture Organism: Staphylococcus aureus : O:MRSA Isolated O:[facility] Isolated Organism: 2.1 Antibiotic Interpretation CHEN Status Ciprofloxacin Ciprofloxacin R F Erythromycin Erythromycin R F Gentamicin Gentamicin S F Levofloxacin Levofloxacin R F Linezolid Linezolid S F Oxacillin Oxacillin R F Penicillin Penicillin R F Rifampin Rifampin S F Tetracycline Tetracycline S F Trimethoprim/Sulfamethoxazole Trimethoprim/Sulfamethoxazole R F Vancomycin Vancomycin S F Clindamycin Clindamycin S F Aerobic Culturecephalosporins with anti-MRSA activity, such as Aerobic Culture Organism: Staphylococcus aureus : O:MRSA Isolated O:STAAUR Isolated Organism: 2.1 Antibiotic Interpretation CHEN Status Ciprofloxacin Ciprofloxacin R F Erythromycin Erythromycin R F Gentamicin Gentamicin S F Levofloxacin Levofloxacin R F Linezolid Linezolid S F Oxacillin Oxacillin R F Penicillin Penicillin R F Rifampin Rifampin S F Tetracycline Tetracycline S F Trimethoprim/Sulfamethoxazole Trimethoprim/Sulfamethoxazole R F Vancomycin Vancomycin S F Clindamycin Clindamycin S F Aerobic CultureCeftaroline Aerobic Culture Organism: Staphylococcus aureus : O:MRSA Isolated O:STAAUR Isolated Organism: 2.1 Antibiotic Interpretation CHEN Status Ciprofloxacin Ciprofloxacin R F Erythromycin Erythromycin R F Gentamicin Gentamicin S F Levofloxacin Levofloxacin R F Linezolid Linezolid S F Oxacillin Oxacillin R F Penicillin Penicillin R F Rifampin Rifampin S F Tetracycline Tetracycline S F Trimethoprim/Sulfamethoxazole Trimethoprim/Sulfamethoxazole R F Vancomycin Vancomycin S F Clindamycin Clindamycin S F Aerobic CultureModerate growth Aerobic Culture Organism: Staphylococcus aureus : O:MRSA Isolated O:STAAUR Isolated Organism: 2.1 Antibiotic Interpretation CHEN Status Ciprofloxacin Ciprofloxacin R F Erythromycin Erythromycin R F Gentamicin Gentamicin S F Levofloxacin Levofloxacin R F Linezolid Linezolid S F Oxacillin Oxacillin R F Penicillin Penicillin R F Rifampin Rifampin S F Tetracycline Tetracycline S F Trimethoprim/Sulfamethoxazole Trimethoprim/Sulfamethoxazole R F Vancomycin Vancomycin S F Clindamycin Clindamycin S F Aerobic CultureMethicillin Resis Staph Aureus Aerobic Culture Organism: Staphylococcus aureus : O:MRSA Isolated O:STAAUR Isolated Organism: 2.1 Antibiotic Interpretation CHEN Status Ciprofloxacin Ciprofloxacin R F Erythromycin Erythromycin R F Gentamicin Gentamicin S F Levofloxacin Levofloxacin R F Linezolid Linezolid S F Oxacillin Oxacillin R F Penicillin Penicillin R F Rifampin Rifampin S F Tetracycline Tetracycline S F Trimethoprim/Sulfamethoxazole Trimethoprim/Sulfamethoxazole R F Vancomycin Vancomycin S F Clindamycin Clindamycin S F Aerobic CultureSee Below For Report Aerobic Culture Organism: Staphylococcus aureus : O:MRSA Isolated O:STAAUR Isolated Organism: 2.1 Antibiotic Interpretation CHEN Status Ciprofloxacin Ciprofloxacin R F Erythromycin Erythromycin R F Gentamicin Gentamicin S F Levofloxacin Levofloxacin R F Linezolid Linezolid S F Oxacillin Oxacillin R F Penicillin Penicillin R F Rifampin Rifampin S F Tetracycline Tetracycline S F Trimethoprim/Sulfamethoxazole Trimethoprim/Sulfamethoxazole R F Vancomycin Vancomycin S F Clindamycin Clindamycin S F Aerobic CultureSee Below For Report Aerobic Culture Organism: Staphylococcus aureus : O:MRSA Isolated O:STAAUR Isolated Organism: 2.1 Antibiotic Interpretation CHEN Status Ciprofloxacin Ciprofloxacin R F Erythromycin Erythromycin R F Gentamicin Gentamicin S F Levofloxacin Levofloxacin R F Linezolid Linezolid S F Oxacillin Oxacillin R F Penicillin Penicillin R F Rifampin Rifampin S F Tetracycline Tetracycline S F Trimethoprim/Sulfamethoxazole Trimethoprim/Sulfamethoxazole R F Vancomycin Vancomycin S F Clindamycin Clindamycin S F Aerobic CulturePerformed at: [facility] Aerobic Culture Organism: Staphylococcus aureus : O:MRSA Isolated O:STAAUR Isolated Organism: 2.1 Antibiotic Interpretation CHEN Status Ciprofloxacin Ciprofloxacin R F Erythromycin Erythromycin R F Gentamicin Gentamicin S F Levofloxacin Levofloxacin R F Linezolid Linezolid S F Oxacillin Oxacillin R F Penicillin Penicillin R F Rifampin Rifampin S F Tetracycline Tetracycline S F Trimethoprim/Sulfamethoxazole Trimethoprim/Sulfamethoxazole R F Vancomycin Vancomycin S F Clindamycin Clindamycin S F Aerobic [id number] [place] [id number] Aerobic Culture Organism: Staphylococcus aureus : O:MRSA Isolated O:STAAUR Isolated Organism: 2.1 Antibiotic Interpretation CHEN Status Ciprofloxacin Ciprofloxacin R F Erythromycin Erythromycin R F Gentamicin Gentamicin S F Levofloxacin Levofloxacin R F Linezolid Linezolid S F Oxacillin Oxacillin R F Penicillin Penicillin R F Rifampin Rifampin S F Tetracycline Tetracycline S F Trimethoprim/Sulfamethoxazole Trimethoprim/Sulfamethoxazole R F Vancomycin Vancomycin S F Clindamycin Clindamycin S F Aerobic CultureLab Director: Tyron Saeed PhD, Phone: [phone] Aerobic Culture Organism: Staphylococcus aureus : O:MRSA Isolated O:STAAUR Isolated Organism: 2.1 Antibiotic Interpretation CHEN Status Ciprofloxacin Ciprofloxacin R F Erythromycin Erythromycin R F Gentamicin Gentamicin S F Levofloxacin Levofloxacin R F Linezolid Linezolid S F Oxacillin Oxacillin R F Penicillin Penicillin R F Rifampin Rifampin S F Tetracycline Tetracycline S F Trimethoprim/Sulfamethoxazole Trimethoprim/Sulfamethoxazole R F Vancomycin Vancomycin S F Clindamycin Clindamycin S F Aerobic CultureSee Below For Report Aerobic Culture Organism: Staphylococcus aureus : O:MRSA Isolated O:STAAUR Isolated Organism: 2.1 Antibiotic Interpretation CHEN Status Ciprofloxacin Ciprofloxacin R F Erythromycin Erythromycin R F Gentamicin Gentamicin S F Levofloxacin Levofloxacin R F Linezolid Linezolid S F Oxacillin Oxacillin R F Penicillin Penicillin R F Rifampin Rifampin S F Tetracycline Tetracycline S F Trimethoprim/Sulfamethoxazole Trimethoprim/Sulfamethoxazole R F Vancomycin Vancomycin S F Clindamycin Clindamycin S F Aerobic CultureSee Below For Report Aerobic Culture Organism: Staphylococcus aureus : O:MRSA Isolated O:STAAUR Isolated Organism: 2.1 Antibiotic Interpretation CHEN Status Ciprofloxacin Ciprofloxacin R F Erythromycin Erythromycin R F Gentamicin Gentamicin S F Levofloxacin Levofloxacin R F Linezolid Linezolid S F Oxacillin Oxacillin R F Penicillin Penicillin R F Rifampin Rifampin S F Tetracycline Tetracycline S F Trimethoprim/Sulfamethoxazole Trimethoprim/Sulfamethoxazole R F Vancomycin Vancomycin S F Clindamycin Clindamycin S F Aerobic CultureSee Below For Report Aerobic Culture Organism: Staphylococcus aureus : O:MRSA Isolated O:STAAUR Isolated Organism: 2.1 Antibiotic Interpretation CHEN Status Ciprofloxacin Ciprofloxacin R F Erythromycin Erythromycin R F Gentamicin Gentamicin S F Levofloxacin Levofloxacin R F Linezolid Linezolid S F Oxacillin Oxacillin R F Penicillin Penicillin R F Rifampin Rifampin S F Tetracycline Tetracycline S F Trimethoprim/Sulfamethoxazole Trimethoprim/Sulfamethoxazole R F Vancomycin Vancomycin S F Clindamycin Clindamycin S F Aerobic CultureSee Below For Report Aerobic Culture Organism: Staphylococcus aureus : O:MRSA Isolated O:STAAUR Isolated Organism: 2.1 Antibiotic Interpretation CHEN Status Ciprofloxacin Ciprofloxacin R F Erythromycin Erythromycin R F Gentamicin Gentamicin S F Levofloxacin Levofloxacin R F Linezolid Linezolid S F Oxacillin Oxacillin R F Penicillin Penicillin R F Rifampin Rifampin S F Tetracycline Tetracycline S F Trimethoprim/Sulfamethoxazole Trimethoprim/Sulfamethoxazole R F Vancomycin Vancomycin S F Clindamycin Clindamycin S F Aerobic CultureSee Below For Report Aerobic Culture Organism: Staphylococcus aureus : O:MRSA Isolated O:STAAUR Isolated Organism: 2.1 Antibiotic Interpretation CHEN Status Ciprofloxacin Ciprofloxacin R F Erythromycin Erythromycin R F Gentamicin Gentamicin S F Levofloxacin Levofloxacin R F Linezolid Linezolid S F Oxacillin Oxacillin R F Penicillin Penicillin R F Rifampin Rifampin S F Tetracycline Tetracycline S F Trimethoprim/Sulfamethoxazole Trimethoprim/Sulfamethoxazole R F Vancomycin Vancomycin S F Clindamycin Clindamycin S F Aerobic CultureSee Below For Report Aerobic Culture Organism: Staphylococcus aureus : O:MRSA Isolated O:STAAUR Isolated Organism: 2.1 Antibiotic Interpretation CHEN Status Ciprofloxacin Ciprofloxacin R F Erythromycin Erythromycin R F Gentamicin Gentamicin S F Levofloxacin Levofloxacin R F Linezolid Linezolid S F Oxacillin Oxacillin R F Penicillin Penicillin R F Rifampin Rifampin S F Tetracycline Tetracycline S F Trimethoprim/Sulfamethoxazole Trimethoprim/Sulfamethoxazole R F Vancomycin Vancomycin S F Clindamycin Clindamycin S F Aerobic CultureSee Below For Report Aerobic Culture Organism: Staphylococcus aureus : O:MRSA Isolated O:STAAUR Isolated Organism: 2.1 Antibiotic Interpretation CHEN Status Ciprofloxacin Ciprofloxacin R F Erythromycin Erythromycin R F Gentamicin Gentamicin S F Levofloxacin Levofloxacin R F Linezolid Linezolid S F Oxacillin Oxacillin R F Penicillin Penicillin R F Rifampin Rifampin S F Tetracycline Tetracycline S F Trimethoprim/Sulfamethoxazole Trimethoprim/Sulfamethoxazole R F Vancomycin Vancomycin S F Clindamycin Clindamycin S F Aerobic CultureSee Below For Report Aerobic Culture Organism: Staphylococcus aureus : O:MRSA Isolated O:STAAUR Isolated Organism: 2.1 Antibiotic Interpretation CHEN Status Ciprofloxacin Ciprofloxacin R F Erythromycin Erythromycin R F Gentamicin Gentamicin S F Levofloxacin Levofloxacin R F Linezolid Linezolid S F Oxacillin Oxacillin R F Penicillin Penicillin R F Rifampin Rifampin S F Tetracycline Tetracycline S F Trimethoprim/Sulfamethoxazole Trimethoprim/Sulfamethoxazole R F Vancomycin Vancomycin S F Clindamycin Clindamycin S F Aerobic CultureSee Below For Report Aerobic Culture Organism: Staphylococcus aureus : O:MRSA Isolated O:STAAUR Isolated Organism: 2.1 Antibiotic Interpretation CHEN Status Ciprofloxacin Ciprofloxacin R F Erythromycin Erythromycin R F Gentamicin Gentamicin S F Levofloxacin Levofloxacin R F Linezolid Linezolid S F Oxacillin Oxacillin R F Penicillin Penicillin R F Rifampin Rifampin S F Tetracycline Tetracycline S F Trimethoprim/Sulfamethoxazole Trimethoprim/Sulfamethoxazole R F Vancomycin Vancomycin S F Clindamycin Clindamycin S F Aerobic CultureSee Below For Report Aerobic Culture Organism: Staphylococcus aureus : O:MRSA Isolated O:STAAUR Isolated Organism: 2.1 Antibiotic Interpretation CHEN Status Ciprofloxacin Ciprofloxacin R F Erythromycin Erythromycin R F Gentamicin Gentamicin S F Levofloxacin Levofloxacin R F Linezolid Linezolid S F Oxacillin Oxacillin R F Penicillin Penicillin R F Rifampin Rifampin S F Tetracycline Tetracycline S F Trimethoprim/Sulfamethoxazole Trimethoprim/Sulfamethoxazole R F Vancomycin Vancomycin S F Clindamycin Clindamycin S F Aerobic CultureSee Below For Report Aerobic Culture Organism: Staphylococcus aureus : O:MRSA Isolated O:STAAUR Isolated Organism: 2.1 Antibiotic Interpretation CHEN Status Ciprofloxacin Ciprofloxacin R F Erythromycin Erythromycin R F Gentamicin Gentamicin S F Levofloxacin Levofloxacin R F Linezolid Linezolid S F Oxacillin Oxacillin R F Penicillin Penicillin R F Rifampin Rifampin S F Tetracycline Tetracycline S F Trimethoprim/Sulfamethoxazole Trimethoprim/Sulfamethoxazole R F Vancomycin Vancomycin S F Clindamycin Clindamycin S F Aerobic CultureSee Below For Report Aerobic Culture Organism: Staphylococcus aureus : O:MRSA Isolated O:STAAUR Isolated Organism: 2.1 Antibiotic Interpretation CHEN Status Ciprofloxacin Ciprofloxacin R F Erythromycin Erythromycin R F Gentamicin Gentamicin S F Levofloxacin Levofloxacin R F Linezolid Linezolid S F Oxacillin Oxacillin R F Penicillin Penicillin R F Rifampin Rifampin S F Tetracycline Tetracycline S F Trimethoprim/Sulfamethoxazole Trimethoprim/Sulfamethoxazole R F Vancomycin Vancomycin S F Clindamycin Clindamycin S F Aerobic CultureSee Below For Report Aerobic Culture Organism: Staphylococcus aureus : O:MRSA Isolated O:STAAUR Isolated Organism: 2.1 Antibiotic Interpretation CHEN Status Ciprofloxacin Ciprofloxacin R F Erythromycin Erythromycin R F Gentamicin Gentamicin S F Levofloxacin Levofloxacin R F Linezolid Linezolid S F Oxacillin Oxacillin R F Penicillin Penicillin R F Rifampin Rifampin S F Tetracycline Tetracycline S F Trimethoprim/Sulfamethoxazole Trimethoprim/Sulfamethoxazole R F Vancomycin Vancomycin S F Clindamycin Clindamycin S F Performing Lab:see note LC - [facility] SEE REPORT - [facility] Id information not found for OBX-specific 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 Reason For Referral No Information Medications Medication SIG (Take, Route, Frequency, Duration) Notes Start Date End Date Status Sulfamethoxazole-Trimethoprim 800-160 MG 1 tablet Orally twice daily; Duration: 10 days 04/09/2024ctiveHYDROcodone-Acetaminophen 5-325 MG1 tablet as needed Orally every 6 hrs; Duration: 7 days04/12/2024ctive Problems Problem Type SNOMED Code ICD Code Onset Dates Problem Status W/U Status Risk Notes Problem Foot ulcer due to ty pe 2 diabetes mellitus (1601802220847) Type 2 diabetes mellitus with foot ulcer (E11.621) ActiveconfirmedProblemChronic ulcer of lower extremity (57309473)Non-pressure chronic ulcer of other part of right lower leg limited to breakdown of skin (L97.811)ActiveconfirmedProblemChronic non-pressure ulcer of calf extending to fat level (16443549511404158)Non-pressure chronic ulcer of other part of right lower leg with fat layer exposed (L97.812)ActiveconfirmedProblemNon-pressure chronic ulcer of other part of left lower leg with fat layer exposed (L97.822) ActiveconfirmedProblemAcute exacerbation of chronic obstructive airways disease (845255939)COPD exacerbation (J44.1)ActiveconfirmedProblem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 with ulcer (I87.313)Active confirmedProblemUlcer of left lower leg (disorder) (32083573660193995)Leg ulcer, left, limited to breakdown of skin (L97.921)ActiveconfirmedProblemAcute osteomyelitis of ankle and/or foot (964885778)Acute osteomyelitis of right ankle or foot (M86.171)ActiveconfirmedProblemNon-pressure chronic ulcer of other part of left lower leg with other specified severity (L97.828)ActiveconfirmedProblem 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)Activeconfirmed ProblemChronic ulcer of right heel with fat layer exposed (L97.412)Active confirmedProblemDelayed surgical wound healing of toe amputation stump (T87.89) ActiveconfirmedProblemDiabetes mellitus (26905892)Diabetes mellitus (E11.9) ActiveconfirmedProblemPolyneuropathy due to type 2 diabetes mellitus (004729558) Controlled type 2 diabetes mellitus with diabetic polyneuropathy, unspecified whether group home insulin use (E11.42)ActiveconfirmedProblemPolyneuropathy due to type 2 diabetes mellitus (172126238)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)Activeconfirmed Plan Of Treatment Pending Test Test Name [...] Insured Coverage Start Date Coverage End Date [facility] [address] [address] [address] [place], [place] [id number] Vito Mckinney - patient is the insured
--- OUTSIDE RECORDS SUMMARY | 2025-05-10 14:48 | XMS_ITS | Clinical Summary ---
Author Organization [employer] [facility] Address [id number] [address] [id number] Care Team Providers Care Analysis Specialist Name Role Phone Unavailable Primary Care Provider Unavailabl e Social History Tobacco UseTypesPacks/DayYears UsedDateSmoking Tobacco: Never AssessedChildcare AnswerDate RhdphktsVznpbhsxdSycuoii81/12/2019EmploymentAnswerDate Recorded NdglrmxucmGjvbzxj37/12/2019Sex and Gender InformationValueDate RecordedSex Assigned at BirthNot on fileLegal RkjQwtj7002/23/2015 11:51 AM EDTGender Identity Not on fileSexual OrientationNot on file Plan of Treatment Health MaintenanceDue DateLast DoneCommentsDepression Mlgyovzdg54/14/1971Tobacco Qszszckwz69/14/1971Adult BMI Ycxhixtmi93/14/1977DTaP,Tdap and Td Vaccines (1 - Tdap)1977Zoster (Shingles) Vaccine (1 of 2)2008Fall Risk Screening 4COVID-19 Vaccine ( season), 10/27/2020, 10/01/2020Influenza Grpqvqi98 [employer] Not on file
--- OUTSIDE RECORDS SUMMARY | 2025-05-10 14:48 | XMS_ITS | Clinical Summary ---
Author Organization [facility] Address [address] [place] [address] Care Team Providers Care Segmental Wall Installer Name Role Phone Dara Eisenberg NP Primary Care Provider Social History Tobacco UseTypesPacks/DayYears UsedDateSmoking Tobacco: Never AssessedSex and Gender InformationValueDate RecordedSex Assigned at BirthNot on fileLegal Sex Male10/02/2022 7:20 PM EDTGender IdentityNot on fileSexual OrientationNot on file Plan of Treatment Not on file Insurance Care Teams Team MemberRelationshipSpecialtyStart DateEnd Date Dara Eisenberg NP [address] [facility] [address] [place], [place] [id number] PCP - GeneralFamily Medicine11/11/24
--- OUTSIDE RECORDS SUMMARY | 2025-05-10 14:48 | XMS_ITS | Clinical Summary ---
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 9 mL 5Active apixaban (Eliquis) 5 mg tablet Indications:Atrial fibrillation, unspecified type (CMS/HCC)Take 1 tablet (5 mg) by mouth two times daily for 171 doses.5Active atorvastatin (Lipitor) 80 mg tablet Indications:Hyperlipidemia, unspecified hyperlipidemia typeTake 1 tablet (80 mg) by mouth at bedtime for 84 doses.5Active furosemide (Lasix) 40 mg tablet Indications:Acute hypoxic respiratory failure (CMS/HCC)Take 1 tablet (40 mg) by mouth in the morning for 91 doses.5Active gabapentin (Neurontin) 300 mg capsule Indications:Sciatica, unspecified lateralityTake 1 capsule (300 mg) by mouth three times daily for 290 doses.5Active metoprolol tartrate (Lopressor) 50 mg tablet Indications:Atrial fibrillation, unspecified type (CMS/HCC)Take 1 tablet (50 mg) by mouth two times daily for 168 doses.5Active QUEtiapine (SEROquel) 50 mg tablet Indications:AgitationTake 1 tablet (50 mg) by mouth at bedtime for 81 doses. 5Active traMADol (Ultram) 50 mg tablet Indications:Sciatica, unspecified lateralityTake 1 tablet (50 mg) by mouth every 6 (six) hours if needed for severe pain (8-10 pain score) for up to 12 doses. 12 tablet 09/08/2024tive Active Problems ProblemNoted DateDiagnosed DateAcute hypoxic respiratory xbzpbel0108/15/2024 Social History Tobacco UseTypesPacks/DayYears UsedDateSmoking Tobacco: Every DayCigarettes Smokeless Tobacco: Never Tobacco Cessation:Ready to Q uit: Not Asked; Counseling Given: Not Answered [facility] UtilitiesAnswerDate RecordedIn the past 12 months has the [employer], gas, oil, or water [employer] threatened to shut off services in your home?Patient unable to vraxkh4408/15/2024Humiliation, Afraid, Rape, and Kick questionnaire AnswerDate RecordedWithin the last year, have you been afraid of your partner or ex-partner?Patient unable to ghfwoq2308/15/2024Emotionally AbusedNot on file 08/15/2024Physically AbusedNot on file08/15/2024Sexually AbusedNot on file 08/15/2024Overall Financial Resource Strain (CARDIA)AnswerDate RecordedHow hard is it for you to pay for the very basics like food, housing, medical care, and heating?Patient unable to rcwkyf8608/15/2024TransportationAnswerDate RecordedIn the past 12 months, has lack of transportation kept you from medical appointments or from getting medications?Patient unable to yqwkyf4808/15/2024Lack of Transportation (Non-Medical)Not on file08/15/2024Housing Stability Vital Sign AnswerDate RecordedIn the last 12 months, was there a time when you were not able to pay the mortgage or rent on time?Patient unable to tuaxxj3408/15/2024 Number of Times Moved in the Last YearNot on file08/15/2024t any time in the past 12 months, were you homeless or living in a chcf (including now)?Patient unable to zeqrvs8108/15/2024Hunger Vital SignAnswerDate RecordedWithin the past 12 months, you worried that your food would run out before you got the money to buy more.Patient unable to fmzbct6508/15/2024Ran Out of Food in the Last YearNot on file08/15/2024Sex and Gender InformationValueDate RecordedSex Assigned at Male08/17/2024 2:16 PM ESTLegal NfqHapf3208/14/2024 12:13 PM ESTGender Identity Male08/17/2024 2:16 PM ESTSexual OrientationNot on file Last Filed Vital Signs Vital SignReadingTime TakenCommentsBlood Ybqpuaox704/98009/09/2024 8:00 AM EST Nxiox498509/09/2024 8:33 AM EYMXwfefsxbynb35.3 ??C (97.4 ??F)09/09/2024 4:15 AM ESTRespiratory Wcoc558309/09/2024 4:15 AM ESTOxygen Tjpumcfqrg61%09/09/2024 8:00 AM ESTInhaled Oxygen Concentration--Ebmkmb204 kg (284 lb 13.4 oz)09/09/2024 3:34 AM KNCOcraec292.3 cm (5' 10.98 )08/28/2024 8:00 AM ESTBody Mass Index39.74 08/28/2024 8:00 AM EST Plan of Treatment Health MaintenanceDue DateLast DoneCommentsCT Olsmozhykaws16/14/1959Colonoscopy 1958Colorectal Cancer Hnnmgpoef83/14/1959FIT-DNA1958FIT1958 FOBT1958Medicare Annual Wellness (AWV)1958 4324Aulbieqwdjjmg54/14/1959 Diabetes: Retinopathy Yetzvidtt63/14/1969Depression Jdsuktbpb60/14/1971Diabetes: Urine Protein Ieumbekpr33/14/1978Pneumococcal Vaccine: 50+ Years (1 of 2 - PCV) 1977Adult Nqaonuu9612/01/1980Zoster Vaccines (1 of 2)2008Diabetes: Hemoglobin A1C501/OVID-19 Vaccine ( season) , 10/27/2020, 10/01/2020Influenza Vaccine (#1)2025 06/23/2022Fall Risk Svxhbtxfp18/20/66650809/09/2024HIB VaccinesAged OutNo longer eligible based on patient's age to complete this topicHPV VaccinesAged OutNo longer eligible based on patient's age to complete this topicIPV VaccinesAged OutNo longer eligible based on patient's age to complete this topicMeningococcal B VaccineAged OutNo longer eligible based on patient's age to complete this topicMeningococcal VaccineAged OutNo longer eligible based on patient's age to complete this topicRotavirus VaccinesAged OutNo longer eligible based on patient's age to complete this topic Procedures Procedure NamePriorityDate/TimeAssociated DiagnosisCommentsHEMOGLOBIN M1SRwz-Ko 08/15/2024 2:04 PM EST from Last 3 Months or Most Recently Relevant to Health Maintenance Results * (ABNORMAL) Hemoglobin A1c (08/15/2024 2:04 PM EST)ComponentValueRef RangeTest MethodAnalysis TimePerformed AtPathologist SignatureHemoglobin A1C8.2(H)4.0 - 6.0 %08/16/2024 12:30 PM [facility] ([facility])Estimated Average Zgcuwxf958af/dL08/16/2024 12:30 PM [facility] ([facility])Specimen (Source)Anatomical Location / LateralityCollection Method / VolumeCollection TimeReceived TimeBloodVenous blood specimen / UnknownArterial Line / Unknown 08/15/2024 2:04 PM EST08/15/2024 2:30 PM EST Narrative Authorizing ProviderResult TypeResult StatusMohamed Kacy OLIVEROS BLOOD ORDERABLESFinal ResultPerforming OrganizationAddressCity/State/ZIP CodePhone Number [facility] ([facility]) [address] [place] [address] from Last 3 Months or Most Recently Relevant to Health Maintenance Additional Health Concerns InfectionOnset DateLast CczamkpnhGOTH71/29/202502/07/2024 Insurance Advance Directives * Full Code (Latest Code Status on File) Date ActivatedDate InactivatedComments08/15/2024 12:24 PM2 2:30 PM Care Teams Team MemberRelationshipSpecialtyStart DateEnd Date Dara Eisenberg NP [address] [place] [address] PCP - GeneralFamily Medicine07/21/24
--- OUTSIDE RECORDS SUMMARY | 2025-05-10 14:48 | XMS_ITS | Clinical Summary ---
Author Organization [facility] Address [address] [place] [address] Care Team Providers Care Enterprise Mobility Architect Name Role Phone No, Physician Primary Care Provider Unavailabl e Allergies No known active allergies Medications MedicationSigDispense QuantityRefillsLast FilledStart DateEnd DateStatus gabapentin (NEURONTIN) 300 MG capsule Take 300 mg by mouth 2 (two) times a day.Active metFORMIN (GLUCOPHAGE) 1000 MG tablet Take 1,000 mg by mouth 2 (two) times a day.Active triamterene-hydrochlorothiazide (DYAZIDE) 37.5-25 mg per capsule Take by mouth daily.Active Social History Tobacco UseTypesPacks/DayYears UsedDateSmoking Tobacco: Every DayCigarettes Alcohol UseStandard Drinks/WeekCommentsNo0 (1 standard drink = 0.6 oz pure alcohol)Sex and Gender InformationValueDate RecordedSex Assigned at BirthNot on fileLegal KepMrip3210/04/2016 4:56 PM EDTGender IdentityNot on fileSexual OrientationNot on file Last Filed Vital Signs Vital SignReadingTime TakenCommentsBlood Zgsjeuvr406/8710/04/2016 8:09 PM EDT Rpsbc8453/17/2017 8:09 PM YNZXnpprngguoz64.4 ??C (97.6 ??F)10/04/2016 4:58 PM EDTRespiratory Vuit571110/04/2016 8:09 PM EDTOxygen Rgpsupnneo89%10/04/2016 8:09 PM EDTInhaled Oxygen Concentration--Csxxlm278.5 kg (312 lb)10/04/2016 4:58 PM NJDYicgvd185.4 cm (6' 1 )10/04/2016 4:58 PM EDTBody Mass Index41.16010/04/2016 4:58 PM EDT Plan of Treatment Health MaintenanceDue DateLast DoneCommentsCT Lcuoosgowblf52/14/1959Colonoscopy 1958Colorectal Cancer Screening/Nobtytnhtk95/14/1959Fecal DNA1958 Fecal occult blood test (FOBT,FIT)1958PSA Level1958Tetanus: Every 10yrs (RETIRED)1958Wellness Visit1961epression Screening/Follow-Up (PHQ-2/9)1970Hepatitis C Pavpjstys23/14/1977Pneumococcal Vaccine: 50+ Years (1 of 1 - PCV)2008Zoster Vaccines (1 of 2)2008Falls Risk Cyogvthmvf80/14/2024OVID-19 Vaccine (1 - 2023-25 season)2025Influenza Vaccine (#1)2025RSV Vaccines (1 - 1-dose 75+ series)2033 Care Teams Team MemberRelationshipSpecialtyStart DateEnd Date No, Physician [facility] PCP - General10/04/16
--- OUTSIDE RECORDS SUMMARY | 2025-05-10 14:48 | XMS_ITS | Clinical Summary ---
Author Organization [facility] Address [address] [place] [address] Care Team Providers Care Termite Control Service Representative Name Role Phone Unavailable Primary Care Provider Unavailabl e Social History Tobacco UseTypesPacks/DayYears UsedDateSmoking Tobacco: Never AssessedSex and Gender InformationValueDate RecordedSex Assigned at BirthNot on fileLegal Sex Male09/02/2024 10:12 AM ESTGender IdentityNot on fileSexual OrientationNot on file Plan of Treatment Health MaintenanceDue DateLast DoneCommentsCT Hbtwosldfpmx75/14/1959Colonoscopy 1958Colorectal Cancer Xaalvhaqu28/14/1959FIT-DNA (Cologuard)1958FIT 1958FOBT1958 2877Jwqfetrjjlaro01/14/1959nnual Visit Topic12/02/1959MMR Vaccines (1 of 1 - Standard series)12/02/1959Hepatitis C Mcaoujtjy63/14/1977 DTaP/Tdap/Td Vaccines (1 - Tdap)1977Pneumococcal Vaccine: 65+ Years (1 of 2 - PCV)2008PSA Test2013HIB VaccinesAged OutNo longer eligible based on patient's age to complete this topicHPV VaccinesAged OutNo longer eligible based on patient's age to complete this topicHepatitis A VaccinesAged OutNo longer eligible based on patient's age to complete this topicHepatitis B VaccinesAged OutNo longer eligible based on patient's age to complete this topic IPV VaccinesAged OutNo longer eligible based on patient's age to complete this topicMeningococcal VaccineAged OutNo longer eligible based on patient's age to complete this topic
--- OUTSIDE RECORDS SUMMARY | 2025-05-10 14:52 | XMS_ITS | CCD ---
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 (RBC) [Entitic mass]Ordered By: Erendira Richard on 48-33-1062XXH (RBC) [Entitic mass]30.9 pg25.9-34.0[facility] CenterMCHC Auto (RBC) [Mass/Vol] Ordered By: Erendira Richard on 46-00-6505DUEC (RBC) [Mass/Vol]32.2 g/dL29.9-35.2 [facility] CenterMCV Auto (RBC) [Entitic vol]Ordered By: Erendira Richard on 81-47-5748VQX (RBC) [Entitic vol]96.1 zMUubj51.0-94.0[facility] CenterPlatelet mean volume Auto (Bld) [Entitic vol]Ordered By: Erendira Richard on 07-13-8470Ffewhaxs mean volume (Bld) [Entitic vol]10.8 fL 9.5-13.5FCleveland ClinicPlatelets Auto (Bld) [#/Vol]Ordered By: Erendira Richard on 01-89-4221Yttinmpkc (Bld) [#/Vol]306 10 3/kP665-004DhqkyndeaUpper Valley Medical CenterRBC Auto (Bld) [#/Vol]Ordered By: Erendira Richard on 28-30-9218WKM (Bld) [#/Vol]4.40 10 6/uLLow4.70-6.10[facility] Centererum or plasma anion gap determinationOrdered By: Erendira Ricahrd on 00-89-2735Xugfb gap [Moles/Vol]7.2 mmol/LFCleveland Clinic Erythrocyte distribution width Auto (RBC) [Ratio]Ordered By: Erendira Richard on 56-54-1212Ciqgwqdsbds distribution width (RBC) [Ratio]14.7 %11.0-15.0[facility] CenterGlomerular filtration rate (GFR) estimation in non- AmericanOrdered By: Erendira Richard on 02-78-6803IUB/1.73 sq M.predicted among non-blacks MDRD (S/P/Bld) [Vol rate/Area]mL/min/{1.73_m2}>=60 mL/min/1.73m 2FCleveland ClinicHematocrit Auto (Bld) [Volume fraction]Ordered By: Erendira Richard on 55-12-1850Owjxgkiwtf (Bld) [Volume fraction]41.1 %Low 42.0-54.0[facility] CenterHemoglobin [Mass/volume] in Blood Ordered By: Erendira Richard on 81-24-6138Bacifezkpo (Bld) [Mass/Vol]13.5 g/dLLow 14.0-18.0[facility] CenterLaboratory - Chemistry and Chemistry - challengeOrdered By: Erendira Richard on 88-07-1551Ndwciqg [Mass/Vol]9.0 mg/dL 8.5-10.1FCleveland ClinicChloride [Moles/Vol]97 mmol/SCyo54-034 [facility] CenterCO2 [Moles/Vol]33.8 mmol/LHigh21.0-32.0 [facility] CenterCreatinine [Mass/Vol]1.03 mg/dL0.70-1.30 [facility] CenterGFR/1.73 sq M.predicted MDRD (S/P/Bld) [Vol rate/Area]mL/min/{1.73_m2}>=60 mL/min/1.73m 2FC[facility] Clinic Glucose [Mass/Vol]314 mg/rVKrme34-606QgzzgoapoUpper Valley Medical CenterPotassium [Moles/Vol]3.6 mmol/L3.5-5.1FRegency Hospital Cleveland Eastodium [Moles/Vol] 135 mmol/QUyq580-302ModqjgygaUpper Valley Medical CenterUrea nitrogen [Mass/Vol] 29.0 mg/dLHigh7.0-18.0[facility] CenterUrea nitrogen/Creatinine [Mass ratio]28.2 mg/mgUpper Valley Medical CenterLeukocytes [#/volume] corrected for nucleated erythrocytes in Blood by Automated counOrdered By: Erendira Richard on 60-97-6633OYA corrected for nucl RBC Auto (Bld) [#/Vol]18.7 10 3/uL High4.0-11.0[facility] Auto (RBC) [Entitic mass] Ordered By: Erendira Richard on 01-76-9834EWV (RBC) [Entitic mass]30.7 pg25.9-34.0 [facility] CenterMCHC Auto (RBC) [Mass/Vol]Ordered By: Erendira Richard on 71-82-1308MTGN (RBC) [Mass/Vol]32.8 g/dL29.9-35.2FCleveland ClinicMCV Auto (RBC) [Entitic vol]Ordered By: Erendira Richard on 68-31-2734ZMA (RBC) [Entitic vol]93.4 fL80.0-94.0[facility] CenterNo Panel InformationOrdered By: Erendira Richard on 28-33-5786Tyxxmohqkf Level Nihdnp77.2 ug/mL5.0-20.0[facility] CenterPlatelet mean volume Auto (Bld) [Entitic vol]Ordered By: Erendira Richard on 02-30-2231Sgcljunk mean volume (Bld) [Entitic vol]11.1 fL9.5-13.5FC[facility] Clinic Platelets Auto (Bld) [#/Vol]Ordered By: Erendira Richard on 24-90-6444Nwlnlqrfj (Bld) [#/Vol]294 10 3/sD247-405YnvsdpkoiUpper Valley Medical CenterRBC Auto (Bld) [#/Vol]Ordered By: Erendira Richard on 88-61-4874ZSC (Bld) [#/Vol]4.40 10 6/uLLow 4.70-6.10[facility] Centererum or plasma anion gap determinationOrdered By: Erendira Richard on 41-01-1227Nyrdu gap [Moles/Vol]7.8 mmol/LFCleveland ClinicBasophils Auto (Bld) [#/Vol]Ordered By: Erendira Richard on 08-05-6867Rcrhyqaef (Bld) [#/Vol]0.0 10 3/uL0.0-0.1FCleveland ClinicBasophils/100 WBC Auto (Bld)Ordered By: Erendira Richard on 17-54-5561Vbztgrqxc/100 WBC (Bld)0.1 %Low0.2-2.0[facility] CenterEosinophils/100 WBC Auto (Bld)Ordered By: Erendira Richard on 09-17-2025 Eosinophils/100 WBC (Bld)0.0 %Low0.9-7.0[facility] Erythrocyte distribution width Auto (RBC) [Ratio]Ordered By: Erendira Richard on 01-38-0252Lyhllvtytnm distribution width (RBC) [Ratio]14.8 %11.0-15.0[facility] CenterGlobulin Calc (S) [Mass/Vol]Ordered By: Erendira Richard on 46-90-4726Dojgayqa (S) [Mass/Vol]5.3 g/dLUpper Valley Medical Center Glomerular filtration rate (GFR) estimation in non- AmericanOrdered By: Erendira Richard on 01-44-8442FWN/1.73 sq M.predicted among non-blacks MDRD (S/P/Bld) [Vol rate/Area]54 mL/min/{1.73_m2}Low>=60 mL/min/1.73m 2FCleveland ClinicHematocrit Auto (Bld) [Volume fraction]Ordered By: Erendira Richard on 45-61-2352Stawxnbqpf (Bld) [Volume fraction]40.8 %Low42.0-54.0 [facility] CenterHemoglobin [Mass/volume] in BloodOrdered By: Erendira Richard on 80-77-2871Wmmteisfdh (Bld) [Mass/Vol]14.0 g/dL14.0-18.0 [facility] CenterLaboratory - Chemistry and Chemistry - challengeOrdered By: Erendira Richard on 86-56-0863Lcxjdvj [Mass/Vol]530 mg/dL Critically azey50-585HhhedggphUpper Valley Medical CenterComment on above:RESULTS CALLED TO ASHLEY LEÓN RN @BY Gely Bradley at 2259Albumin [Mass/Vol] 1.8 g/dLLow3.4-5.0[facility] CenterALP [Catalytic activity/Vol] 127 U/PTvxr93-994MbbmtxxffUpper Valley Medical CenterALT [Catalytic activity/Vol]13 U/RIez08-81KsuwhkeyvUpper Valley Medical CenterAST [Catalytic activity/Vol]15 U/L 15-37[facility] CenterBilirubin [Mass/Vol]0.9 mg/dL0.2-1.0 [facility] CenterCalcium [Mass/Vol]9.7 mg/dL8.5-10.1FCleveland ClinicChloride [Moles/Vol]94 mmol/YXjv02-243ZzyjzyccrUpper Valley Medical CenterCO2 [Moles/Vol]31.1 mmol/L21.0-32.0[facility] CenterCreatinine [Mass/Vol]1.33 mg/dLHigh0.70-1.30[facility] CenterGFR/1.73 sq M.predicted MDRD (S/P/Bld) [Vol rate/Area]mL/min/{1.73_m2}>=60 mL/min/1.73m 2FCleveland ClinicMagnesium [Mass/Vol]2.0 mg/dL 1.8-2.4FCleveland ClinicPotassium [Moles/Vol]3.5 mmol/L3.5-5.1 [facility] CenterProtein [Mass/Vol]7.1 g/dL6.4-8.2FRegency Hospital Cleveland Eastodium [Moles/Vol]130 mmol/NWhl299-680JsitxuiriUpper Valley Medical CenterUrea nitrogen [Mass/Vol]33.0 mg/dLHigh7.0-18.0[facility] CenterUrea nitrogen/Creatinine [Mass ratio]24.8 mg/mgUpper Valley Medical CenterLaboratory - Hematology and Cell countsOrdered By: Erendira Richard on 15-98-0111Kzikmszt granulocytes/100 WBC (Bld)0.8 %High0.0-0.5FCleveland ClinicLeukocytes [#/volume] corrected for nucleated erythrocytes in Blood by Automated counOrdered By: Erendira Richard on 04-06-2025 WBC corrected for nucl RBC Auto (Bld) [#/Vol]17.8 10 3/uLHigh4.0-11.0[facility] CenterLymphocytes Auto (Bld) [#/Vol]Ordered By: Erendira Richard on 52-86-9137Agytxxaonbg (Bld) [#/Vol]0.5 10 3/uLLow1.2-3.8[facility] CenterLymphocytes/100 WBC Auto (Bld)Ordered By: Erendira Richard on 52-04-1655Mjtjzjltayu/100 WBC (Bld)2.9 %Low20.5-60.0[facility] CenterMCH Auto (RBC) [Entitic mass]Ordered By: Erendira Richard on 60-57-7328UXT (RBC) [Entitic mass]31.5 pg25.9-34.0[facility] CenterMCHC Auto (RBC) [Mass/Vol]Ordered By: Erendira Richard on 86-17-0268QILB (RBC) [Mass/Vol]34.3 g/dL29.9-35.2FCleveland ClinicMCV Auto (RBC) [Entitic vol] Ordered By: Erendira Richard on 76-84-5722HQU (RBC) [Entitic vol]91.9 fL80.0-94.0 [facility] CenterMonocytes Auto (Bld) [#/Vol]Ordered By: Erendira Richard on 10-35-1274Zajkatggb (Bld) [#/Vol]0.9 10 3/uLHigh0.3-0.8[facility] CenterMonocytes/100 WBC Auto (Bld)Ordered By: Erendira Richard on 45-91-4255Tqlzkonhi/100 WBC (Bld)5.1 %1.7-12.0[facility] Neutrophils Auto (Bld) [#/Vol]Ordered By: Erendira Richard on 49-83-5458Lqhfgdcbcat (Bld) [#/Vol]16.2 10 3/uLHigh1.4-6.5FC[facility] Clinic Neutrophils/100 WBC Auto (Bld)Ordered By: Erendira Richard on 04-06-2025 Neutrophils/100 WBC (Bld)91.1 %High43.0-75.0[facility] CenterNo Panel InformationOrdered By: Erendira Richard on 94-06-5573Hqdrzradxwi # (Auto)0.0 10 3/uL0.0-0.7FCleveland ClinicImmature Granulocyte # (Auto)0.14 10 3/uLHigh0.00-0.03[facility] CenterTroponin I High Sensitivity6.3 pg/mL4.0-76.1FCleveland ClinicComment on above: CUT-OFF POINTS HAVE BEEN ESTABLISHED BASED ON THE FOURTHUNIVERSAL DEFINITION OF MYOCARDIAL INFARCTION. THE UPPERREFERENCE LIMIT (URL) OF TROPONIN, DEFINED THE 99THPERCENTILE OF cTnI DISTRIBUTION IN A REFERENCE POPULATION,HAS BEEN CONFIRMED THE DECISION THRESHOLD FOR MIDIAGNOSIS.99TH PERCENTILE = 76.2 PG/MLNOTE: HIGH-SENSITIVITY TROPONIN ASSAY IS NOT INTENDED TO BEUSED IN ISOLATION BUT SHOULD BE INTERPRETED IN CONJUNCTIONWITH OTHER DIAGNOSTIC AND CLINICAL INFORMATION.Platelet mean volume Auto (Bld) [Entitic vol]Ordered By: Erendira Richard on 57-56-7135Nctypmid mean volume (Bld) [Entitic vol]11.0 fL 9.5-13.5FCleveland ClinicPlatelets Auto (Bld) [#/Vol]Ordered By: Erendira Richard on 46-79-9267Mhpajczcj (Bld) [#/Vol]268 10 3/iK110-526BalhdgplxUpper Valley Medical CenterRBC Auto (Bld) [#/Vol]Ordered By: Erendira iRchard on 65-27-9977JGV (Bld) [#/Vol]4.44 10 6/uLLow4.70-6.10[facility] Centererum or plasma albumin/globulin mass ratioOrdered By: Erendira Richard on 46-68-8562Hcozrrp/Globulin [Mass ratio]0.3 {ratio}[facility] Centererum or plasma anion gap determinationOrdered By: Erendira Richard on 06-35-2422Wifgv gap [Moles/Vol]8.4 mmol/LFCleveland Clinic Basophils/100 WBC Manual cnt (Bld)Ordered By: Coco Starr on 04-05-2025 Basophils/100 WBC (Bld)1.0 %0.2-2.0[facility] Eosinophils/100 WBC Manual cnt (Bld)Ordered By: Cooc Starr on 04-05-2025 Eosinophils/100 WBC (Bld)0.0 %Low0.9-7.0[facility] Erythrocyte distribution width Auto (RBC) [Ratio]Ordered By: Coco Starr on 59-24-3448Ylazejwewbk distribution width (RBC) [Ratio]14.8 %11.0-15.0[facility] CenterGlobulin Calc (S) [Mass/Vol]Ordered By: Coco Starr on 66-18-8706Ensivkkr (S) [Mass/Vol]5.6 g/dLUpper Valley Medical Center Glomerular filtration rate (GFR) estimation in non- AmericanOrdered By: Coco Starr on 49-28-8285REF/1.73 sq M.predicted among non-blacks MDRD (S/P/Bld) [Vol rate/Area]49 mL/min/{1.73_m2}Low>=60 mL/min/1.73m 2FCleveland ClinicHematocrit Auto (Bld) [Volume fraction]Ordered By: Coco Starr on 56-10-9206Pqrorlswsx (Bld) [Volume fraction]43.2 %42.0-54.0[facility] CenterHemoglobin [Mass/volume] in BloodOrdered By: Coco Starr on 30-12-8941Vfykdamppg (Bld) [Mass/Vol]14.9 g/dL14.0-18.0[facility] CenterINR in Platelet poor plasma by Coagulation assayOrdered By: Coco Starr on 09-57-2025GCV Coag (PPP) [Relative time]1.04 {INR}[facility] CenterComment on above:DESIRED INR:2.0-3.0 CONDITIONS NOT LISTED BELOW2.5-3.5 FOR PROSTHETIC HEART VALVE REPLACEMENT2.5-3.5 RECURRENT THROMBOSIS Laboratory - Chemistry and Chemistry - challengeOrdered By: Nyasia Hadley on 68-87-7410Yhxkkwi [Moles/Vol]1.4 mmol/L0.4-2.0[facility] CenterNatriuretic peptide B (Bld) [Mass/Vol]312.0 pg/mL<=900.0[facility] CenterBilirubin Ql (U)NegativeNEGATIVEUpper Valley Medical Center Glucose (U) [Mass/Vol]mg/dLAbnormalNEGATIVEUpper Valley Medical Center Ketones Ql (U)NegativeNEGATIVEUpper Valley Medical CenterpH (U)6.0 [pH] 5.0-9.0[facility] Centerpecific gravity (U) [Rel density]1.010 1.005-1.025[facility] CenterUrobilinogen Qn (U)0.2 {Madelin'U}/dL0.2-1.0[facility] CenterLaboratory - Chemistry and Chemistry - challengeOrdered By: Coco Diab on 18-62-8274Htlmeus [Mass/Vol]2.1 g/dLLow3.4-5.0[facility] CenterALP [Catalytic activity/Vol]143 U/CQect47-061XkpqbybodUpper Valley Medical CenterALT [Catalytic activity/Vol]14 U/L Wgs68-09JvaekqdfgUpper Valley Medical CenterAST [Catalytic activity/Vol]11 U/LLow 15-37[facility] CenterBilirubin [Mass/Vol]1.5 mg/dLHigh0.2-1.0 [facility] CenterCalcium [Mass/Vol]10.1 mg/dL8.5-10.1FCleveland ClinicChloride [Moles/Vol]89 mmol/ORjz37-747PqtbzxfceUpper Valley Medical CenterCO2 [Moles/Vol]29.3 mmol/L21.0-32.0[facility] CenterCreatinine [Mass/Vol]1.45 mg/dLHigh0.70-1.30[facility] CenterGFR/1.73 sq M.predicted MDRD (S/P/Bld) [Vol rate/Area]59 mL/min/{1.73_m2} Low>=60 mL/min/1.73m 2FCleveland ClinicGlucose [Mass/Vol]499 mg/uGXsut82-864UicrjodyiUpper Valley Medical CenterPotassium [Moles/Vol]4.0 mmol/L 3.5-5.1FCleveland ClinicProtein [Mass/Vol]7.7 g/dL6.4-8.2 [facility] Centerodium [Moles/Vol]125 mmol/THur449-169MibmeecxfUpper Valley Medical CenterUrea nitrogen [Mass/Vol]29.0 mg/dLHigh7.0-18.0[facility] CenterUrea nitrogen/Creatinine [Mass ratio]20.0 mg/mgUpper Valley Medical CenterLaboratory - Hematology and Cell countsOrdered By: Coco Starr on 77-47-6191Ipznjiodkee/100 WBC (Bld)4.0 %Low20.5-60.0[facility] CenterMonocytes/100 WBC (Bld)7.0 %1.7-12.0[facility] CenterLaboratory - Microbiology and Antimicrobial susceptibilityOrdered By: Nyasia Hadley on 02-10-3180QBDA-CoV-2 (COVID-19) RNA GRACE+probe Ql (Unsp spec)NegativeNEGATIVEUpper Valley Medical CenterComment on above:This test has not been FDA cleared or approved, but has beenauthorized by the FDA under an Emergency Use Authorization(EUA) for use by authorized laboratories certified underIA that meet the requirements to perform moderate or highcomplexity testing. This test has been authorized only forthe detection of proteins from SARS-CoV-2, not for any otherviruses or pathogens. The emergency use of this t est isauthorized for the duration of the declaration thatcircumstances exist justifying the authorization ofemergency use of in vitro diagnostic tests for detectionand/or diagnosis of Covid-19 under section 564(b)(1) of theAct, 21 U.S.C. 360bbb-3(b)(1), unless the declaration isterminated or authorization is revoked sooner.Laboratory - Specimen informationOrdered By: Nyasia Hadley on 45-97-1929Irnwchetwt (U)SL CLOUDYCLEARFCleveland ClinicColor (U)LT. YELLOWYELLOWUpper Valley Medical CenterLaboratory - Urinalysis Ordered By: Nyasia Hadley on 10-53-9560Rroddbhey esterase Test strip Ql (U) TRACEAbnormalNEGATIVEUpper Valley Medical CenterMucus Ql (Urine sed)NONE SEENNONE SEENUpper Valley Medical CenterNitrite Ql (U)NegativeNEGATIVE [facility] CenterProtein Ql (U)30 mg/dLAbnormalNEG/TRACE [facility] CenterLeukocytes [#/volume] corrected for nucleated erythrocytes in Blood by Automated counOrdered By: Coco Starr on 55-91-7886FFQ corrected for nucl RBC Auto (Bld) [#/Vol]18.6 10 3/uLHigh4.0-11.0[facility] Auto (RBC) [Entitic mass]Ordered By: Coco Ro on 47-63-3231NDJ (RBC) [Entitic mass]31.2 pg25.9-34.0[facility] CenterHC Auto (RBC) [Mass/Vol]Ordered By: Coco Ro on 67-34-4438ZOSB (RBC) [Mass/Vol]34.5 g/dL29.9-35.2FTrumbull Regional Medical CenterV Auto (RBC) [Entitic vol]Ordered By: Coco Ro on 17-21-4518XCG (RBC) [Entitic vol]90.4 fL 80.0-94.0[facility] CenterNo Panel InformationOrdered By: Nyasia Hadley on 95-16-4449Hulludai I High Sensitivity7.2 pg/mL4.0-76.1 [facility] CenterComment on above:CUT-OFF POINTS HAVE BEEN ESTABLISHED BASED ON THE FOURTHUNIVERSAL DEFINITION OF MYOCARDIAL INFARCTION. THE UPPERREFERENCE LIMIT (URL) OF TROPONIN, DEFINED THE 99THPERCENTILE OF cTnI DISTRIBUTION IN A REFERENCE POPULATION,HAS BEEN CONFIRMED THE DECISION THRESHOLD FOR MIDIAGNOSIS.99TH PERCENTILE = 76.2 PG/MLNOTE: HIGH-SENSITIVITY TROPONIN ASSAY IS NOT INTENDED TO BEUSED IN ISOLATION BUT SHOULD BE INTERPRETED IN CONJUNCTIONWITH OTHER DIAGNOSTIC AND CLINICAL INFORMATION.Urine Bacteria MODERATE #/HPFAbnormalNONE SEENUpper Valley Medical CenterUrine Culture ReflexedST. MARY'S MEDICAL CENTER-FROhioHealth Marion General HospitalUrine Microscopic ReviewProvidence HospitalUrine Occult BloodLARGEAbnormalNEGATIVE [facility] CenterUrine Other CastsNONE SEEN #/LPFNONE SEEN [facility] CenterUrine Other CrystalsNone Seen #/HPFNone Seen [facility] CenterUrine KBF63-02 #/HPFAbnormal0-2FCleveland ClinicUrine Squamous Epithelial CellsRARE #/LPFNONE/RARE [facility] CenterUrine PSI02-30 #/HPFAbnormalNONE SEENUpper Valley Medical CenterNo Panel InformationOrdered By: Coco Starr on 04-05-2025 Absolute Basophils (Manual)0.18 10 3/uLHigh0.00-0.10[facility] CenterEosinophils # (Manual)0.00 10 3/uL0.00-0.70[facility] CenterLymphocytes # (Manual)0.74 10 3/uLLow1.20-3.80[facility] CenterMonocytes # (Manual)1.30 10 3/uLHigh0.30-0.80[facility] Centeregmented Neutrophils # (Manual)16.36 10 3/uLHigh1.4-6.5FCleveland ClinicPlatelet mean volume Auto (Bld) [Entitic vol]Ordered By: Coco Starr on 43-38-6810Puluqrxr mean volume (Bld) [Entitic vol]11.8 fL9.5-13.5 [facility] CenterPlatelets Auto (Bld) [#/Vol]Ordered By: Coco Starr on 12-97-0694Octehqybr (Bld) [#/Vol]284 10 3/tN441-695JvphmvfpoUpper Valley Medical CenterProthrombin time (PT)Ordered By: Coco Starr on 53-95-0638MJ Coag (PPP) [Time]11.0 s9.0-11.6FCleveland ClinicRBC Auto (Bld) [#/Vol]Ordered By: Coco Starr on 76-15-4408NWZ (Bld) [#/Vol]4.78 10 6/uL 4.70-6.10[facility] Centeregmented neutrophils/100 WBC Manual cnt (Bld)Ordered By: Coco Starr on 30-42-4779Bnpddymjl neutrophils/100 WBC (Bld)88.0 %High43.0-75.0[facility] Centererum or plasma albumin/globulin mass ratioOrdered By: Coco Starr on 82-85-3056Hwvslww/Globulin [Mass ratio]0.4 {ratio}[facility] Centererum or plasma anion gap determinationOrdered By: Coco Starr on 48-71-2144Fkyjx gap [Moles/Vol]10.7 mmol/LFCleveland ClinicUrine Cultureon 95-08-5855Emjhvmbe identified Cx Nom (U)ORGANISM: Enterobacter cloacae complex (O:ENTCLOCPLX) Braggadocio Count >100,000 Aerobic CHEN Charge (NMIC56) SUSCEPTIBILITY ORGANISM: O:ENTCLOCPLX ANTIBIOTIC INTERPRETATION CHEN Amikacin S <16 Aztreonam I <4 Cefepime S <2 Ceftazidime I <1 Ceftriaxone I <1 Cefuroxime R 16 Ciprofloxacin I 0.5 Ertapenem S <0.5 Gentamicin S <2 Levofloxacin S <0.5 Meropenem S <1 Meropenem/Vaborbactam S <2 Nitrofurantoin S <32 Piperacillin/Tazobactam I <8 Tetracycline S <4 Tigecycline S <2 Tobramycin S <2 Trimethoprim/Sulfamethoxazole R >2 S = SUSCEPTIBLE I = [...] RESISTANT TO ALL B-LACTAM DRUGS. PERFORMED BY: [facility] [address] [place] [address] PATHOLOGIST EDGE SETTER ISAAK DURBIN M.D.NormalHca Florida Northwest Hospital Physician GroupComment on above: Performed By: #### CUU #### [facility] [address] [place] [address] USAUrine cultureOrdered By: Coco Starr on 60-16-2423Byqbpxdn identified Cx Nom (U)Enterobacter cloacae complexAbOhioHealth Riverside Methodist HospitalYeast detection in urine sediment by light microscopyOrdered By: Nyasia Hadley on 99-78-5140Ncgnq LM Ql (Urine sed)SEENAbnormalNONE SEEN [facility] CenterPOCT PT/INRon 51-37-3318CZTL INR1.3High.7-1.2 [facility] HospitalComment on above:Performed By: #### [id number] #### [facility] [address] [place], [place] [address]SMSJ PT15.1 second(s)High8.0-15.0[facility] Comment on above:Performed By: #### [id number] #### [facility] [address] [place], [place] [address]RDCtg 05-17-8791Ykpua gap [Moles/Vol]7 mmol/LNormal6-16[facility] HospitalComment on above:Performed By: #### [id number] #### [facility] [address] [place], [place] [address]MXK/Creat Ratio30 No CedjmLuwr64-98BtdxjpMercy Health Urbana Hospital Comment on above:Performed By: #### [id number] #### [facility] [address] [place], [place] [address]Zeocxjc [Mass/Vol]9.3 mg/dLNormal8.9-11.1FMercy Health St. Anne HospitalComment on above:Performed By: #### [id number] #### [facility] [address] [place], [place] [address]Ifvchwal [Moles/Vol]103 mmol/HNnywmq591-914LbwvpyMercy Health Urbana HospitalComment on above:Performed By: #### [id number] #### [facility] [address] [place], [place] [address]LZ5 [Moles/Vol]29 mmol/DJuguyr67-91IwvaxmMercy Health Urbana Hospital Comment on above:Performed By: #### [id number] #### [facility] [address] [place], [place] [address]Gfdjzocwel [Mass/Vol]0.8 mg/dLNormal0.5-1.3FMercy Health St. Anne HospitalComment on above:Performed By: #### [id number] #### [facility] [address] [place], [place] [address]Lamdjzr [Mass/Vol]214 mg/pIUbat34-448FnbbuyMercy Health Urbana HospitalComment on above:Performed By: #### [id number] #### [facility] [address] [place], [place] [address]Sjmacpxxz [Moles/Vol]3.6 mmol/LNormal3.5-5.3FMercy Health St. Anne HospitalComment on above:Performed By: #### [id number] #### [facility] [address] [place], [place] [address]Pozpci [Moles/Vol]135 mmol/ESlmjwo110-677BsgwjcMercy Health Urbana HospitalComment on above:Performed By: #### [id number] #### [facility] [address] [place], [place] [address]Ikip nitrogen [Mass/Vol]24 mg/dLHigh5-21[facility] HospitalComment on above:Performed By: #### [id number] #### [facility] [address] [place] [address]INN w/ Auto Diffon 10-17-6998Moslwpbt Absolute0.1 E9/LNormal 0.0-0.2FMercy Health St. Anne HospitalComment on above:Performed By: #### [id number] #### [facility] [address] [place] [address]Pwizwnbjs/100 WBC (Bld)1.4 %Normal0.0-2.0[facility] HospitalComment on above:Performed By: #### [id number] #### [facility] [address] [place], [place] [address]Kmq Absolute0.3 E9/LNormal0.0-0.5FMercy Health St. Anne Hospital Comment on above:Performed By: #### [id number] #### [facility] [address] [place], [place] [address]Oikvefcljjl/100 WBC (Bld)3.5 %Normal0.0-8.0[facility] HospitalComment on above:Performed By: #### [id number] #### [facility] [address] [place] [address]Aetbipwcbks distribution width (RBC) [Ratio]17.1 %High10.9-14.2 [facility] HospitalComment on above:Performed By: #### [id number] #### [facility] [address] [place] [address]Oilpnocmig (Bld) [Volume fraction]36.9 %Low37.7-49.0[facility]rb[facility] HospitalComment on above:Performed By: #### [id number] #### [facility] [address] [place] [address] [id number] (Bld) [Mass/Vol]12.7 g/dLLow13.5-17.5FMer[facility] HospitalComment on above:Performed By: #### [id number] #### [facility] [address] [place] [address] [id number] Absolute1.5 E9/LNormal1.0-4.0[facility] Comment on above:Performed By: #### [id number] #### [facility] [address] [place] [address] [phone]/100 WBC (Bld)18.9 %Gpmbdy95.0-50.0[facility] HospitalComment on above:Performed By: #### [id number] #### [facility] [address] [place] [address] [id number] (RBC) [Entitic mass]31.6 hjUahbje07.0-34.0[facility] HospitalComment on above:Performed By: #### [id number] #### [facility] [address] [place] [address] [id number] (RBC) [Mass/Vol]34.4 g/fNElbbnn50.4-36.0[facility] HospitalComment on above:Performed By: #### [id number] #### [facility] [address] [place] [address] [id number] (RBC) [Entitic vol]91.9 uHZvbnno67.0-100.0[facility] HospitalComment on above:Performed By: #### [id number] #### [facility] [address] [place], [place] [address]Coyr Absolute1.0 E9/LNormal0.2-1.0[facility] Comment on above:Performed By: #### [id number] #### [facility] [address] [place], [place] [address]Shfopgvms/100 WBC (Bld)12.1 %Normal4.0-14.0[facility] HospitalComment on above:Performed By: #### [id number] #### [facility] [address] [place], [place] [address]Ogofxt Absolute5.1 E9/LNormal2.0-7.5FMercy Health [facility] Comment on above:Performed By: #### [id number] #### [facility] [address] [place] [address] 475[address]Kjwpci Auto64.1 %Tetvqb78.0-75.0[facility] Comment on above:Performed By: #### [id number] #### [facility] [address] [place] [address]Fxvqyoxe434.0 E9/VHowpas341.0-500.0[facility] Comment on above:Performed By: #### [id number] #### [facility] [address] [place] [address]Oylgynqh mean volume (Bld) [Entitic vol]8.5 fLNormal6.4-10.8 [facility] HospitalComment on above:Performed By: #### [id number] #### [facility] [address] [place], [place] [address]XAF1.0 E12/LLow4.3-5.9[facility] HospitalComment on above:Performed By: #### [id number] #### [facility] [address] [place] [address]VTR6.9 E9/LNormal4.0-11.0[facility] HospitalComment on above:Performed By: #### [id number] #### [facility] [address] [place], [place] [address]Bfyrokxmu Glucose POCon 42-04-2623Mxowejs [Mass/Vol]318 mg/dL Kjnz49-75GjgyosMercy Health Urbana HospitalComment on above:Result Comment: Notified RN/MDPerformed By: #### [id number] #### [facility] [address] [place], [place] [address]Kejngck [Mass/Vol]203 mg/yLVjcf94-38SggpodMercy Health U[facility] Hospital Comment on above:Result Comment: Notified RN/MDPerformed By: #### [id number] #### [facility] [address] [place], [place] [address]Scdrbwzct Clinical Summaryon [id number] Clinical SummaryInpatient Clinical Summary [address] [address] Clinical Summary Person Information: Name: TYLER SMITH Age: 64 Years : 1960 Sex: Male PCP: DARA EISENBERG CNP Marital Status: Single Phone: [phone] Race: White Ethnicity: Non- or Language: Dutch Visit Id: Visit Reason: Medical problem - major; VERICOSE VEIN TOURNIQUET Speciality: Acuity: Enc Type: Inpatient Med Service: Medical Arrival: 01/24/2025 11:29:33 Discharge: Dispo Type: Admitted as IP to this Hosp Address: [address] [place] [address] Provider Notes: Diagnosis: 1:Severe sepsis; 2:Cellulitis of leg; 3:KRISTINE (acute kidney injury); 4:Atrial fibrillation with RVR; 5: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; 6:Hyponatremia; 7:Noncompliance with medications; 8:Insulin dependent type 2 diabetes mellitus; CHCF (current) use of insulin Problems Active Smoker [...] With: Address: When: DARA EISENBERG [address] [facility], [place] [address] [phone] Business (1) [address] [facility] [place], [facility] [place] [address] [phone] Business (1) 01/31/2025 11:00 AM Comments: Call Dr for diagnosis based follow up With: Address: When: [facility] [phone] With: Address: When: OZZIE DUGAN [address] [place] [address] Business (1) Within 4 weeks Comments: Call for followup appointment With: Address: When: Follow up as scheduled with [facility] With: Address: When: [facility] [address] [place] [phone] Business (1) Within 3 to 5 days Comments: Call for followup appointment Patient Education Information: Atrial Fibrillation; Type 2 Diabetes Mellitus, Diagnosis, Adult; Sepsis, Diagnosis, Adult; Atrial Fibrillation; Cellulitis, Adult; Cellulitis, Adult, Bsic-ew-Urfu; Bleeding Varicose VeinsNormalMercy Health Urbana HospitalInpatient Patient Summaryon [id number] Patient SummaryInpatient Patient Summary [address] [address] Patient Discharge Instructions PERSON INFORMATION Name: TYLER SMITH Date of : 1960 Current Date: 01/26/2025 16:16:53 PHYSICIANS Admitting Physician: Ghassan Ding III, DO Primary Care Physician: DARA EISENBERG CNP Phone Number: [phone] Comment: Discharge Diagnosis: 1:Severe sepsis; 2:Cellulitis of leg; 3:KRISTINE (acute kidney injury); 4:Atrial fibrillation with RVR; 5: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; 6:Hyponatremia; 7:Noncompliance with medications; 8:Insulin dependent type 2 diabetes mellitus; CHCF (current) use ofinsulin Condition at Discharge: Stable TYLER SMITH has been given the following list of follow-up instructions, prescriptions, and patienteducation materials: PATIENT FOLLOW-UP INFORMATION Diet: Regular Discharge [...] up: With: Address: When: [facility] [phone] With: Address: When: OZZIE DUGAN [address] [place] [address] Business (1) Within 4 weeks Comments: Call for followup appointment With: Address: When: Follow up as scheduled with [facility] With: Address: When: [facility] [address] [place] [phone] Business (1) Within 3 to 5 days Comments: Call for followup appointment With: Address: When: DARA EISENBERG [address], [place] [phone] Business (1) In 3 days 01/27/2025 Comments: Call Dr for diagnosis based follow up In the event that this physician does not participate in your insurance network, please consult with your insurance company to find a nearby participating provider. Comment: LUIS Minor EARL, have received the attached patient education materials/instructions and have verbalized understanding: Patient Signature Date Clinican/Nurse Signature Date HERE ARE THE MEDICATION CHANGES THAT OCCURRED DURING YOUR HOSPITAL STAY New Medications [facility], [address] [place] [phone], [phone] cephalexin (cephalexin 500 mg Cap) 1 Capsules By Mouth every 6 hours for 10 Days. Refills: 0. Last Dose: Next Dose: insulin glargine (Insulin Glargine Solostar Pen 100 units/mL subcutaneous solution) 30 Units Subcutaneous every day. Refills: 1. Last Dose: Next Dose: Misc Prescription (Pen Needle 31G x 6mm) Pen Needle 31G x 6mm for use with insulin pen for once daily long acting insulin. Refills: 1. Last Dose: Next Dose: Misc Prescription (Single Use Alcohol Pad) Single Use Alcohol Pad - Use once daily prior to injection.. Refills: 1. Last Dose: Next Dose: oxycodone (oxyCODONE 5 mg Tab) 1 Tablets By Mouth every 8 hours as needed for pain for 5 Days. Refills: 0. Last Dose: Next Dose: warfarin (warfarin 5 mg Tab) 1 Tablets By Mouth every day for 21 Days. Refills: 0. Patient instructions: Follow up with anticoagulation clinic for dosing as outpatient - will send referral Last Dose: Next Dose: Medications to Continue with No Changes Other Medications atorvastatin (atorvastatin 80 mg Tab) 1 Tablets By Mouth every day. Last Dose: Next Dose: furosemide (furosemide 40 mg Tab) TAKE 1 TABLET BY MOUTH EVERY DAY FOR 90 DAYS. Last Dose: Next Dose: gabapentin (gabapentin 300 mg Cap) TAKE 2 CAPSULES BY MOUTH IN THE MORNING,1 CAPSULE IN THE AFTERNOON,AND 2 CAPSULES IN THE EVENING. Last Dose: Next Dose: glipiZIDE (glipiZIDE 5 mg Tab) 1 Tablets By Mouth every day. Last Dose: Next Dose: metoprolol (Metoprolol tartrate 50 mg Tab) 1 Tablets By Mouth 2 times a day. Last Dose: Next Dose: quetiapine (quetiapine 50 mg oral tablet) TAKE 1 TABLET BY MOUTH EVERY DAY FOR 90 DAYS. Last Dose: Next Dose: C (more content not included)...[facility] Interdisciplinary Note - Case Manageron [id number] Note - Case ManagerInterdisciplinary Note - Lip Cutter Chart reviewed and patient previously rounded on by KALI Carson. Per [employer] portal multiple referrals were put into [facility] for C and [facility] was the only one able to accept [...] closely for discharge needs. IMM copy at bedside.[facility] HospitalComment on above:Result Comment: Electronically Signed By: Sarah Snyder\Date and Time Signed: 01/26/25 11:38 EDTPTon [id number] Coag (PPP) [Relative time]0.97 {INR}Invalid Interpretation CodeMercy Health Urbana HospitalComment on above:Result Comment: INR results are specifically intended to assess patients stabilized on long-term Anticoagulation therapy suggested INR???s ???Less Intensive Anticoagulation??? 2.0 ??? 3.0 Conventional Range 3.0 ??? 4.5Performed By: #### [id number] #### [facility] [address] [place], [place] [address]PO92.9 second(s)Normal9.4-12.5FMercy Health St. [facility] Comment on above:Result Comment: 15 days - 4 weeks 1 - [...] the same coagulation reagent and instrumentation as [facility]. Currently there are no coagulation studies available worldwide for children to 14 days, andno normal ranges.Performed By: #### [id number] #### [facility] [address] [place], [place] [address]sPFBdk 86-81-0688hLPA24 mL/min/1.73 e9Ibsoov>=59[facility] HospitalComment on above:Performed By: #### [id number] #### [facility] [address] [place], [place] [address]ALN w/ Auto Diffon 61-37-5042Tewqiopa Absolute0.1 E9/LNormal 0.0-0.2FMercy Health St. Anne HospitalComment on above:Performed By: #### [id number] #### [facility] [address] [place], [place] [address]Rjndlyadg/100 WBC (Bld)0.9 %Normal0.0-2.0[facility] HospitalComment on above:Performed By: #### [id number] #### [facility] [address] [place], [place] [address]Cpk Absolute0.1 E9/LNormal0.0-0.5FMercy Health St. [facility] Comment on above:Performed By: #### [id number] #### [facility] [address] [place], [place] [address]Rngcgpmciek/100 WBC (Bld)0.9 %Normal0.0-8.0[facility] HospitalComment on above:Performed By: #### [id number] #### [facility] [address] [place] [address]Nviuifecwor distribution width (RBC) [Ratio]17.1 %High10.9-14.2 [facility] HospitalComment on above:Performed By: #### [id number] #### [facility] [address] [place] [address]Ciqijqdrak (Bld) [Volume fraction]38.3 %Yjqyab96.7-49.0[facility] HospitalComment on above:Performed By: #### [id number] #### [facility] [address] [place], [place] [address]Ruhilvyyvq (Bld) [Mass/Vol]13.2 g/dLLow13.5-17.5FMercy Health St. Anne HospitalComment on above:Performed By: #### [id number] #### [facility] [address] [place], [place] [address]Tydhs Absolute1.1 E9/LNormal1.0-4.0[facility] Comment on above:Performed By: #### [id number] #### [facility] [address] [place], [place] [address]Achkbeyurbx/100 WBC (Bld)9.3 %Low14.0-50.0[facility] HospitalComment on above:Performed By: #### [id number] #### [facility] [address] [place] [address]QQV (RBC) [Entitic mass]31.6 baBubnrr24.0-34.0[facility] HospitalComment on above:Performed By: #### [id number] #### [facility] [address] [place] [address]TELI (RBC) [Mass/Vol]34.5 g/nQReqopv84.4-36.0[facility] HospitalComment on above:Performed By: #### [id number] #### [facility] [address] [place] [address]BHC (RBC) [Entitic vol]91.5 uCTuijvg45.0-100.0[facility] HospitalComment on above:Performed By: #### [id number] #### [facility] [address] [place] [address]Bgjm Absolute1.2 E9/LHigh0.2-1.0[facility] Comment on above:Performed By: #### [id number] #### [facility] [address] [place] [address]Rbtysauwb/100 WBC (Bld)10.0 %Normal4.0-14.0[facility] HospitalComment on above:Performed By: #### [id number] #### [facility] [address] [place] [address]Lxbrii Absolute9.1 E9/LHigh2.0-7.5FMercy Health St. [facility] Hospital Comment on above:Performed By: #### [id number] #### [facility] [address] [place] [address]Tfwqar Auto78.9 %High36.0-75.0[facility] Comment on above:Performed By: #### [id number] #### [facility] [address] [place] [address]Ndjjiwzy740.0 E9/QJmgmfq973.0-500.0[facility] Comment on above:Performed By: #### [id number] #### [facility] [address] [place], [place] [address]Fdmnekpu mean volume (Bld) [Entitic vol]8.9 fLNormal6.4-10.8 [facility] HospitalComment on above:Performed By: #### [id number] #### [facility] [address] [place], [place] [address]NYS8.2 E12/LLow4.3-5.9[facility] HospitalComment on above:Performed By: #### [id number] #### [facility] [address] [place] [address]NDW41.5 E9/LHigh4.0-11.0[facility] HospitalComment on above:Performed By: #### [id number] #### [facility] [address] [place] [address]UHcl 00-09-1110Snbpo CK64 Int._Unit/LFpwqmr52-876EnnzejMercy Health Urbana HospitalComment on above:Performed By: #### [id number] #### [facility] [address] [place] [address]SUAns 14-62-4793Remngkm [Mass/Vol]2.9 g/dLLow3.3-5.0[facility] HospitalComment on above:Performed By: #### [id number] #### [facility] [address] [place], [place] [address]Xpllces/Globulin [Mass ratio]1.0 {ratio}Low1.1-2.2FMercy Health St. Anne HospitalComment on above:Performed By: #### [id number] #### [facility] [address] [place] [address]Lzn Phos85 Int._Unit/XIjnufr85-17CxyfzuMercy Health U[facility] Hospital Comment on above:Performed By: #### [id number] #### [facility] [address] [place], [place] [address]JPT97 Int._Unit/LNormal6-46[facility] HospitalComment on above:Performed By: #### [id number] #### [facility] [address] [place], [place] [address]Snqrd gap [Moles/Vol]11 mmol/LNormal6-16[facility] HospitalComment on above:Performed By: #### [id number] #### [facility] [address] [place], [place] [address]QPE57 Int._Unit/LNormal5-43[facility] HospitalComment on above:Performed By: #### [id number] #### [facility] [address] [place], [place] [address]Ryyn Total0.5 mg/dLNormal0.0-1.1FMercy Health St. [facility] Comment on above:Performed By: #### [id number] #### [facility] [address] [place], [place] [address]NMB/Creat Ratio37 No UkbczIayo05-92YvmbdoMercy Health U[facility] Hospital Comment on above:Performed By: #### [id number] #### [facility] [address] [place], [place] [address]Ozbqaje [Mass/Vol]8.9 mg/dLNormal8.9-11.1FMercy Health St. Anne HospitalComment on above:Performed By: #### [id number] #### [facility] [address] [place], [place] [address]Dvuxtgua [Moles/Vol]100 mmol/WSfa434-311JgyyqxMercy Health Urbana HospitalComment on above:Performed By: #### [id number] #### [facility] [address] [place], [place] [address]UR7 [Moles/Vol]25 mmol/SWzvpnv05-86FxfppbMercy Health [facility] Hospital Comment on above:Performed By: #### [id number] #### [facility] [address] [place], [place] [address]Rusdgtmbro [Mass/Vol]1.2 mg/dLNormal0.5-1.3FMercy Health St. Anne HospitalComment on above:Performed By: #### [id number] #### [facility] [address] [place], [place] [address]Jympqgzj (S) [Mass/Vol]2.8 g/dLNormal1.4-4.0[facility] HospitalComment on above:Performed By: #### [id number] #### [facility] [address] [place], [place] [address]Kuextij [Mass/Vol]345 mg/tNXyfb63-424EmsukcMercy Health Urbana HospitalComment on above:Performed By: #### [id number] #### [facility] [address] [place], [place] [address]Pmcvxxgqm [Moles/Vol]3.6 mmol/LNormal3.5-5.3FMercy Health St. Anne HospitalComment on above:Performed By: #### [id number] #### [facility] [address] [place], [place] [address]Cwpurxj [Mass/Vol]5.7 g/dLLow6.0-7.8[facility] Comment on above:Performed By: #### [id number] #### [facility] [address] [place], [place] [address]Npdhzg [Moles/Vol]132 mmol/LChg475-919DphnmiMercy Health Urbana HospitalComment on above:Performed By: #### [id number] #### [facility] [address] [place], [place] [address]Cipn nitrogen [Mass/Vol]44 mg/dLHigh5-21[facility] HospitalComment on above:Performed By: #### [id number] #### [facility] [address] [place], [place] [address]Xeenoacsa Glucose POCon 66-71-1866Sqkjltf [Mass/Vol]357 mg/dL Evin64-01SwhcwyMercy Health Urbana HospitalComment on above:Result Comment: Notified RN/MDPerformed By: #### [id number] #### [facility] [address] [place], [place] [address]Mvoedbv [Mass/Vol]351 mg/bYGgbh28-63Nqsetd[address] Comment on above:Result Comment: Notified RN/MDPerformed By: #### [id number] #### [facility] [address] [place], [place] [address]Jzgzkqd [Mass/Vol]277 mg/kWRqbg26-06Yhohfp[address] Comment on above:Result Comment: Notified RN/MDPerformed By: #### [id number] #### [facility] [address] [place], [place] [address]Clgdshu [Mass/Vol]289 mg/dTVigs77-12Jjiljo[address] Comment on above:Result Comment: Notified RN/MDPerformed By: #### [id number] #### [facility] [address] [place], [place] [address]Yopcigo [Mass/Vol]282 mg/bHUbki74-81Dboast[address] Comment on above:Result Comment: Notified RN/MDPerformed By: #### [id number] #### [facility] [address] [place], [place] [address]Adreuzv [Mass/Vol]345 mg/cURlyp35-24Zjuwaz[address] Comment on above:Performed By: #### [id number] #### [facility] [address] [place], [place] [address]Escxsel [Mass/Vol]466 mg/kPBcttznqe09-96Ydrwiv[address] [place], [place] [address]Comment on above:Performed By: #### [id number] #### [facility] [address] [place], [place] [address]BmjC0taf 88-93-1309FrN8h (Bld) [Mass fraction]12.6 %High<=5.9 [facility] HospitalComment on above:Performed By: #### [id number] #### [facility] [address] [place], [place] [address]Sftozndhcjkicyssu Note - Case Manageron 01-25-2025 Interdisciplinary Note - Case ManagerInterdisciplinary Note - Lip Cutter SW spoke with patient in room. No family in room. Patient is alert and oriented and participates indischarge planning. Patient is from home lives with friend Sam. Dr. Ding is following, see notes, saw patient earlier today. Patient was admitted on 01/24/25 , dx with sepsis. Has a consult with Patient Support Partner. Patient verified PCP, insurance and DME, FWW [...] does not have Sam's number as he doesnot have his phone. He is not sure if Sam is aware that he is at the hospital. CORRECTION: HE HAS HIS OWN MACHINE [facility] HospitalComment on above:Result Comment: Electronically Signed By: Zuleyma VALADEZ, Yamileth\.br\Date and Time Signed: 01/25/2514:53 EDTInterdisciplinary Note - Lip Cutter Interdisciplinary Note - Lip Cutter JOSÉ spoke with patient in room. No family in room. Patient is alert and oriented and participates indischarge planning. Patient is from home lives with friend Sam. Dr. Ding is following, see notes, saw patient earlier today. Patient was admitted on 01/24/25 , dx with sepsis. Has a consult with Patient Support Partner. Patient verified PCP, insurance and DME, FWW [...] white board updated, and SW contact information provided.[facility] HospitalComment on above:Result Comment: Electronically Signed By: Zuleyma ARTW, Yamileth\.br\Date and Time Signed: 01/25/2510:44 EDTPTon [id number] Coag (PPP) [Relative time]1.00 {INR}Invalid Interpretation CodeMercy Health Urbana HospitalComment on above:Result Comment: INR results are specifically intended to assess patients stabilized on long-term Anticoagulation therapy suggested INR???s ???Less Intensive Anticoagulation??? 2.0 ??? 3.0 Conventional Range 3.0 ??? 4.5Performed By: #### [id number] #### [facility] [address] [place], [place] [address]VJ14.2 second(s)Normal9.4-12.5FMercy Health St. [facility] Hospital Comment on above:Result Comment: 15 days - 4 weeks 1 - [...] the same coagulation reagent and instrumentation as [facility]. Currently there are no coagulation studies available worldwide for children to 14 days, andno normal ranges.Performed By: #### [id number] #### [facility] [address] [place], [place] [address]pWVHom 48-94-4020uVUB74 mL/min/1.73 y9Xojift>=59[facility] HospitalComment on above:Performed By: #### [id number] #### [facility] [address] [place], [place] [address]ICByj 21-75-8190Dpjqi gap [Moles/Vol]12 mmol/LNormal6-16[facility] HospitalComment on above:Performed By: #### [id number] #### [facility] [address] [place], [place] [address]YWG/Creat Ratio41 No OwyfiFzfo43-23SjyznmMercy Health U[facility]ana Hospital Comment on above:Performed By: #### [id number] #### [facility] [address] [place], [place] [address]Mekbrst [Mass/Vol]8.7 mg/dLLow8.9-11.1FMercy Health St. Anne HospitalComment on above:Performed By: #### [id number] #### [facility] [address] [place], [place] [address]Owexfsmd [Moles/Vol]95 mmol/KNmf735-922BwcelkMercy Health Urbana HospitalComment on above:Performed By: #### [id number] #### [facility] [address] [place], [place] [address]MC6 [Moles/Vol]25 mmol/RIjsciw56-16CxvhdcMercy Health U[facility] Hospital Comment on above:Performed By: #### [id number] #### [facility] [address] [place], [place] [address]Afcgqmdwki [Mass/Vol]1.4 mg/dLHigh0.5-1.3FMercy Health St. Anne HospitalComment on above:Performed By: #### [id number] #### [facility] [address] [place], [place] [address]Zrnhkkj [Mass/Vol]431 mg/rHWudu92-710JzogmoMercy Health Urbana HospitalComment on above:Performed By: #### [id number] #### [facility] [address] [place], [place] [address]Qkjvohzvf [Moles/Vol]3.8 mmol/LNormal3.5-5.3FMercy Health St. Anne HospitalComment on above:Performed By: #### [id number] #### [facility] [address] [place], [place] [address]Pcvpbw [Moles/Vol]128 mmol/WWkp288-490XdzpwwMercy Health Urbana HospitalComment on above:Performed By: #### [id number] #### [facility] [address] [place], [place] [address]Jnxv nitrogen [Mass/Vol]57 mg/dLHigh5-21[facility] HospitalComment on above:Performed By: #### [id number] #### [facility] [address] [place], [place] [address]PNC w/ Auto Diffon 37-41-4485Hbgjevzo Absolute0.1 E9/LNormal 0.0-0.2FMercy Health St. Anne HospitalComment on above:Performed By: #### [id number] #### [facility] [address] [place], [place] [address]Cdqmdxjjl/100 WBC (Bld)0.5 %Normal0.0-2.0[facility] HospitalComment on above:Performed By: #### [id number] #### [facility] [address] [place] [address]Ygv Absolute0.1 E9/LNormal0.0-0.5FMercy Health St. [facility] Hospital Comment on above:Performed By: #### [id number] #### [facility] [address] [place] [address]Leypdoxelan/100 WBC (Bld)0.5 %Normal0.0-8.0[facility] HospitalComment on above:Performed By: #### [id number] #### [facility] [address] [place] [address]Vuxzrnlddxs distribution width (RBC) [Ratio]17.1 %High10.9-14.2 [facility] HospitalComment on above:Performed By: #### [id number] #### [facility] [address] [place], [place] [address]Xuzgifobdx (Bld) [Volume fraction]43.6 %Riywev43.7-49.0[facility] HospitalComment on above:Performed By: #### [id number] #### [facility] [address] [place], [place] [address]Ftjjzvsnmg (Bld) [Mass/Vol]14.6 g/hMHuxvgf10.5-17.5FMercy Health St. Anne HospitalComment on above:Performed By: #### [id number] #### [facility] [address] [place] [address] 01639Batct Absolute1.1 E9/LNormal1.0-4.0[facility] Comment on above:Performed By: #### [id number] #### [facility] [address] [place] [address] 38131Rzjntehxkak/100 WBC (Bld)6.1 %Low14.0-50.0[facility] HospitalComment on above:Performed By: #### [id number] #### [facility] [address] [place] [address] 85924IXD (RBC) [Entitic mass]30.8 lpPvikqd15.0-34.0[facility] HospitalComment on above:Performed By: #### [id number] #### [facility] [address] [place] [address] 05512MLZC (RBC) [Mass/Vol]33.6 g/rEQztscn98.4-36.0[facility] HospitalComment on above:Performed By: #### [id number] #### [facility] [address] [place] [address] 75602KMT (RBC) [Entitic vol]91.8 xXGdikpc05.0-100.0[facility] HospitalComment on above:Performed By: #### [id number] #### [facility] [address] [place] [address] 08614Segl Absolute1.3 E9/LHigh0.2-1.0[facility] Comment on above:Performed By: #### [id number] #### [facility] [address] [place] [address] 10714Ukvkipfrv/100 WBC (Bld)7.6 %Normal4.0-14.0[facility] HospitalComment on above:Performed By: #### [id number] #### [facility] [address] [place] [address] 06248Mzvpcp Onecyutx82.8 E9/LHigh2.0-7.5FMercy Health [facility] Comment on above:Performed By: #### [id number] #### [facility] [address] [place] [address] 53983Wnjllg Auto85.3 %High36.0-75.0[facility] Comment on above:Performed By: #### [id number] #### [facility] [address] [place], [place] [address]Gkulheli707.0 E9/MVqszox588.0-500.0[facility] Comment on above:Performed By: #### [id number] #### [facility] [address] [place] [address] 47138Paubnzpe mean volume (Bld) [Entitic vol]8.7 fLNormal6.4-10.8 [facility] HospitalComment on above:Performed By: #### [id number] #### [facility] [address] [place] [address] 63025LZS5.8 E12/LNormal4.3-5.9[facility] HospitalComment on above:Performed By: #### [id number] #### [facility] [address] [place] [address] 39349OOR51.4 E9/LHigh4.0-11.0[facility] HospitalComment on above:Performed By: #### [id number] #### [facility] [address] [place] [address] 72024Dewtenhel Glucose POCon 71-84-5243Jwgdqfn [Mass/Vol]490 mg/dL Borgyzig78-27TkqixnMercy Health Urbana HospitalComment on above:Result Comment: Notified RN/Katherineformed By: #### [id number] #### [facility] [address] [place] [address] 66913MQ Clinical Summaryon [id number] Clinical SummaryED Clinical Summary [address] [id number] ED Clinical Summary Person Information Name: TYLER SMITH/Severino Age: 64 Years : 1960 Sex: Male Language: Dutch PCP: DARA EISENBERG CNP Marital Status: Single Phone: [phone] Visit Id: Visit Reason: Medical problem - [...] 18:23:37 Patient Care Request 01/24/2025 18:23:37 ADDRESS: [address] [place] [address] PHYS DOC NOTES: MEDICAL INFORMATION: Prescriptions Given: New Medications [id number], [address], [place] [id number], [phone] doxycycline (doxycycline hyclate 100 mg Cap) 1 Capsules By Mouth 2 times a day for 7 Days. Refills:0. PATIENT EDUCATION INFORMATION: Instructions: Cellulitis, Adult, Vtbs-yj-Lcrf; Bleeding Varicose Veins Follow up: With: Address: When: DARA EISENBERG [address], [place] [address] [phone] Business (1) In 3 days 01/27/2025 Comments: Call Dr for diagnosis based follow up DIAGNOSIS: 1:Severe sepsis; 2:Cellulitis of leg; 3:KRISTINE (acute kidney injury); 4:Atrial fibrillation with RVR; 5: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; 6:Hyponatremia; 7:Noncompliance with medicationsNormalPaulding County Hospital Medical CenterED Note-Physicianon [id number] Note-PhysicianED Note-Physician Basic Information Time Seen: Erich ROBBINS, Puneet Ellis. 01/24/2025 11:35 Chief Complaint Pt has two tourniquets on lower rt extremity anywhere between 50 min to an hr per EMS. pt has hx varicose veins. one burst in shower. no fall. History of Present Illness A 64-year-old male reports emerged department with concerns of right lower extremity bleed. Reportshe thinks he had his varicose vein having [...] other associated symptoms no other prior treatments orcomplaints. Family: Reviewed and noncontributory Social: lives at [...] the area. Patient has good distal pulses. Hedoes have what appears to be chronic wounds [...] this. Patient's blood pressure did stay low throughouthis encounter here and his heart rate did [...] of the patient. Sepsis Data [x] Patient's [place] body weight was considered in sepsis fluid [...] (Z91.148: Patient's other nonco (more content not included)...[facility] HospitalComment on above:Result Comment: Electronically Signed By: Puneet Jung PA-C.br\Date and Time Signed: 01/24/2513:02 EDT\.br\Electronically Co-Signed By: Puneet Jung PA-C.br\Date and Time Co-Signed: 01/24/25 15:25 EDT\.br\Electronically Co-Signed By: Puneet Jung PA-C.br\Date and Time Co-Signed: 01/24/25 16:27 EDT\.br\Electronically Co-Signed By: Manuel Fletcher M.D.\.br\Date and Time Co-Signed: 01/24/25 18:08 EDTED Patient Summaryon [id number] Patient SummaryED Patient Summary [place] [id number] Patient Discharge Instructions Person Information Name: TYLER SMITH Age: 64 Years Arrival Date: 01/24/2025 11:29:33 Discharge Diagnosis: 1:Severe sepsis; 2:Cellulitis of leg; 3:KRISTINE (acute kidney injury); 4:Atrial fibrillation with RVR; 5: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; 6:Hyponatremia; 7:Noncompliance with medications Primary Care Physician: DARA EISENBERG CNP Provider Information Primary Provider: Manuel Fletcher M.D. [employer] Assistant:Pnueet Jung PA-C The exam and treatment you received in the Emergency Department were for an urgent problem and are not intended as complete care. It is important that you follow up with a doctor, nurse practitioner,or physician???s family service assistant for ongoing care. If your symptoms become worse or you do not improve asexpected and you are unable to reach your usual health care provider, you should return to the Emergency Department. We are available 24 hours a day. TYLER SMITH has been given the following list of patient education materials, prescriptions and follow-up instructions: Follow-up Instructions: With: Address: When: DARA EISENBERG [address], [address] [place] [id number] [phone] Business (1) In 3 days 01/27/2025 Comments: Call Dr for diagnosis based follow up In the event that this physician does not participate in your insurance network, please consult with your insurance company to find a nearby participating provider. Patient Education Materials: Cellulitis, Adult, Xusl-cf-Gmqa; Bleeding Varicose Veins A MESSAGE TO ALL PATIENTS REGARDING OPIOIDS PRESCRIPTION OPIOIDS: WHAT YOU NEED TO KNOW Prescription opioids can be used to help relieve zynsxyve-ul-xsjskl pain and are often prescribed following a [...] down the toilet, f (more content not included)...NormalMercy Health Urbana HospitalLactic Acidon 39-36-0154Pryjhu Acid Lvl1.0 mmol/LNormal0.5-2.2FMercy Health St. Anne HospitalComment on above:Performed By: #### [id number] #### [facility] [address] [place], [place] [address]QR & PTTon 48-54-1040FZX Coag (PPP) [Relative time]1.03 {INR} Invalid Interpretation [facility] HospitalComment on above:Result Comment: INR results are specifically intended to assess patients stabilized on long-term Anticoagulation therapy suggested INR???s ???Less Intensive Anticoagulation??? 2.0 ??? 3.0 Conventional Range 3.0 ??? 4.5Performed By: #### [id number] #### [facility] [address] [place], [place] [address]HM36.5 second(s)Normal9.4-12.5FMercy Health St. [facility] Hospital Comment on above:Result Comment: 15 days - 4 weeks 1 - [...] the same coagulation reagent and instrumentation as [facility]. Currently there are no coagulation studies available worldwide for children to 14 days, andno normal ranges.Performed By: #### [id number] #### [facility] [address] [place], [place] [address]XAA55.7 second(s)Gnfsjq05.1-36.5FMercy Health St. [facility] Hospital Comment on above:Result Comment: Parameter 15 days - 4 weeks 1 - [...] the same coagulation reagent and instrumentation as [facility]. Currently there are no coagulation studies available worldwide for children to 14 days, andno normal ranges. Heparin therapeutic range (represented by Anti-Factor Xa activity of 0.2 - 0.4 U/mL) corresponds to PTT of 56.6 - 109.0 sec.Performed By: #### [id number] #### [facility] [address] [place], [place] [address]Zlp-Saopczn Noteon 90-49-8189Ipa-Arrival NotePre-Arrival Note Pre-Arrival Summary Name: , Current Date: 01/24/2025 11:30:22 EDT Gender: Date of : Age: Pre-Arrival Type: EMS ETA: 01/24/2025 11:50:00 EDT Primary Care Physician: Presenting Problem: varicose vein tourniquet Pre-Arrival User: [address] Referring Source: Location: [place] Completion Date/Time: 01/24/2025 11:20:00 [facility] Emergency Department Pre-Hospital Report Form Vital Signs: Pre-Hospital Report: Treatment in Route: Response to Treatment: Misc. Issues:NormalFisher [facility] CenterProcalcitoninon 01-24-2025 Procalcitonin.09 ng/mLNormal.00-.50[facility] HospitalComment on above: Result Comment: <0.5 ng/mL Low [...] to retest PCT within 6 to 24 hours.Performed By: #### [id number] #### [facility] [address] [place], [place] [address]Troponin 0 Hr.on 80-04-2602Iaadzeqy HS4.60 pg/mLLow15.90-38.40 [facility] HospitalComment on above:Result Comment: The 95% CI (Confidence Interval) PPV (Positive Predictive Value) for myocardial infarction in females is 38 pg/mL, in males 51 pg/mL. The results should be used in conjunction with clinical conditions of myocardial infarction. (Access High Sensitivity Troponin I Instructions For Use, Charli Birmingham, February 2018)Performed By: #### [id number] #### [facility] [address] [place], [place] [address]JC with Cult Rflxon 06-58-7148Yynkb (U)Light-YellowNormalYellow [facility] HospitalComment on above:Result Comment: Microscopic readings are only performed on those samples that meet specific criteria set forth by [facility].Performed By: #### [id number] #### [facility] [address] [place], [place] [address]Hpixnte Ql (U)NegativeNormalNegativeMercy Health [facility] Comment on above:Performed By: #### [id number] #### [facility] [address] [place], [place] [address]ET Blood1+ mg/dLAbnormalNegativeMercy Health [facility] Hospital Comment on above:Performed By: #### [id number] #### [facility] [address] [place], [place] [address]AC ClarityClearNormalClearMercy Health Urbana HospitalComment on above:Performed By: #### [id number] #### [facility] [address] [place], [place] [address]VH Glucose4+ mg/dLAbnormriNegSt. Elizabeth Hospital Comment on above:Performed By: #### [id number] #### [facility] [address] [place], [place] [address]XL Leuk EstNegativeNormalNegSt. Elizabeth Hospital Comment on above:Performed By: #### [id number] #### [facility] [address] [place], [place] [address]OO MucousTraceNormalNegSt. Elizabeth HospitalComment on above:Performed By: #### [id number] #### [facility] [address] [place], [place] [address]VB NitriteNegativeNormalNegSt. Elizabeth Hospital Comment on above:Performed By: #### [id number] #### [facility] [address] [place], [place] [address]WK pH5.0Invalid Interpretation Code5.0-9.0[facility] HospitalComment on above:Performed By: #### [id number] #### [facility] [address] [place], [place] [address]BR ProteinNegativeNormalNegSt. Elizabeth Hospital Comment on above:Performed By: #### [id number] #### [facility] [address] [place], [place] [address]HQ ZUU0-48Vyxbpfzf9-6Ckaelh [facility] Hospital CenterComment on above:Performed By: #### [id number] #### [facility] [address] [place], [place] [address]MV Spec Grav1.020Invalid Interpretation Code1.005-1.030[facility] HospitalComment on above:Performed By: #### [id number] #### [facility] [address] [place], [place] [address]PH UrobilinogenNegativeNormalNegativeMercy Health Urbana HospitalComment on above:Performed By: #### [id number] #### [facility] [address] [place] [address]CF EHA7-9Fokzyi4-7Tafmzj [facility] CenterComment on above: Performed By: #### [id number] #### [facility] [address] [place], [place] [address]Klxktyydagzs (U) [Mass/Vol]NegativeNormalNegativeMercy Health Urbana HospitalComment on above:Performed By: #### [id number] #### [facility] [address] [place] [address]BR Spec DescClean CatchNormCleveland Clinic Mentor HospitalComment on above:Performed By: #### [id number] #### [facility] [address] [place] [address]NU Chest 2 Viewson 25-03-0845UD Chest 2 ViewsExam Date/Time: 01/24/2025 14:37 EDT Reason for Exam: [...] Krishna Ray MD Transcribed by: UMU Technologist: [facility] Medical CentereGFRon 49-39-8130kNKP99 mL/min/1.73 m2Low>=59[facility] HospitalComment on above:Performed By: #### [id number] #### [facility] [address] [place] [address]LaQ9k HPLC (Bld) [Mass fraction]on 94-73-9576GfU0v (Bld) [Mass fraction]10.1 %[facility] CenterCB WITH AUTO DIFFERENTIALon 49-18-9041Knximqcdp (Bld) [#/Vol]0.05 10*3/uLNormal0.00-0.20UnKettering Memorial HospitalComment on above:Performed By: #### [id number] ####[facility] (BEAK[facility])[address] [place], [place] [address]Dciyeyoxj/100 WBC (Bld)0.6 %Normal 0.0-1.0UnKettering Memorial HospitalComment on above:Performed By: #### [id number] ####[facility] (BE[facility]ER)[address] [place] [address] Eosinophils (Bld) [#/Vol]0.43 10*3/uLNormal0.00-0.50UnKettering Memorial HospitalComment on above:Performed By: #### [id number] ####[facility] ([facility])[address] [place], [place] [address]Jbydbvadsxl/100 WBC (Bld)5.0 %Normal 0.0-6.0UnKettering Memorial HospitalComment on above:Performed By: #### [id number] ####[facility] ([facility])[address] [place] [address] Erythrocyte distribution width (RBC) [Ratio]15.1 %High11.5-15.0UnKettering Memorial HospitalComment on above:Performed By: #### [id number] ####[facility] ([facility])[address] [facility] [address]DQTXAUAOKPO MEAN CORPUSCULAR HEMOGLOBIN CONCENTRATION (G/DL) BY OFRSHRUPG65.1 g/dLLow32.0-35.0 [facility] HospitalComment on above:Performed By: #### [id number] ####[facility] ([facility])[address] [facility], [place] [address]Mlyaluazzi (Bld) [Volume fraction]48.8 %Ryoyqy47.0-55.0UnKettering Memorial Hospital Comment on above:Performed By: #### [id number] ####[facility] (BE[facility])[address] [place] [address]Sysdbkdgft (Bld) [Mass/Vol]15.2 g/lBQzkcik73.0-17.0 [facility] HospitalComment on above:Performed By: #### [id number] ####[facility] ([facility])[address] [place] [address]Vorlthsx granulocytes (Bld) [#/Vol]0.05 10*3/uLNormal0.00-0.20UnKettering Memorial HospitalComment on above:Performed By: #### [id number] ####[facility] (BE[facility])[address] [place] [address]Rqpmaxea granulocytes/100 WBC (Bld)0.6 %Normal0.0-1.0UnKettering Memorial HospitalComment on above:Performed By: #### [id number] ####[facility] ([facility])[address] [place] [address] Lymphocytes (Bld) [#/Vol]1.59 10*3/uLNormal1.20-4.00UnKettering Memorial HospitalComment on above:Performed By: #### [id number] ####[facility] ([facility])[address] [place] [address]Kbebsavhonm/100 WBC (Bld)18.5 %Low 20.0-45.0UnKettering Memorial HospitalComment on above:Performed By: #### [id number] ####[facility] ([facility])[address] [place] [address]CRN (RBC) [Entitic mass]28.8 riPhkwmr04.0-33.0Un[facility] Hospital Comment on above:Performed By: #### [id number] ####[facility] ([facility])[address] [place] [address]DWO (RBC) [Entitic vol]92.6 hEDioguj32.0-98.0 [facility] HospitalComment on above:Performed By: #### [id number] ####[facility] ([facility])[address] [place] [address]Vquwkvajm (Bld) [#/Vol]0.90 10*3/uLNormal0.10-1.00UnKettering Memorial HospitalComment on above:Performed By: #### [id number] ####[facility] ([facility])[address] [place] [address]Prnqbsgbs/100 WBC (Bld)10.5 %Normal5.0-12.0UnKettering Memorial HospitalComment on above:Performed By: #### [id number] ####[facility] ([facility])[address] [place] [address]Bpsukvnpjzn (Bld) [#/Vol] 5.56 10*3/uLNormal1.60-7.60UnK[facility]tering Memorial HospitalComment on above: Performed By: #### [id number] ####[facility] ([facility])[address] [place] [address]Ilfqmhnntht/100 WBC (Bld)64.8 %Ptizpf53.0-72.0UnKettering Memorial HospitalComment on above:Performed By: #### [id number] ####[facility] ([facility])[address] [place] [address]OOJO (PER 100 WBCS) BY AUTOMATED COUNT0.0 %Lawamf5YxthkpbahjKettering Memorial HospitalComment on above: Performed By: #### [id number] ####[facility] ([facility])[address] [place] [address]AJYUTAEQT (10*3/UL) IN BLOOD AUTOMATED EAQGL716 10*3/uLNormal 150-400UnKettering Memorial HospitalComment on above:Performed By: #### [id number] ####[facility] ([facility])[address] [place] [address]HAG (Bld) [#/Vol]5.27 10*6/uLNormal4.20-5.70Un[facility] Hospital Comment on above:Performed By: #### [id number] ####[facility] ([facility])[address] [place] [address]COO (Bld) [#/Vol]8.58 10*3/uLNormal4.00-10.60 [facility] HospitalComment on above:Performed By: #### [id number] ####[facility] ([facility])[place] [place] [address]ZWop 09-09-2024 DSNormalUniversMedina HospitalMAGNESIUMon 89-16-3543Mkpnvmxzg [Mass/Vol]1.7 mg/dLLow1.9-2.7UnKettering Memorial HospitalComment on above:Performed By: #### [id number] ####[facility] ([facility])[address] PERALESPHOENIX[place]ITALDines[place] [address]YZTINUVJVRik 40-88-7079Qhggqwwvj [Mass/Vol]3.2 mg/dLNormal 2.5-5.0UnKettering Memorial HospitalComment on above:Performed By: #### [id number] ####[facility] ([facility])[address]QV[address] ANGELLAPHOENIXVILLE [place]Dines[place] [address]RSNF GLUCOSE METER UNSOLICITED RESULTSon 51-75-9585Svykcaw [Mass/Vol]114 mg/dLHigh 70-105UnKettering Memorial HospitalComment on above:Order Comment: Waived Testing in the ED is performed under the ED CLIA certificate #[id number].Result Comment: myamqbz0Wbjzzqkhz By: #### [id number] ####[facility] ([facility])[address] [place] [id number] 65-54-338922BnsqiqKbxyaxioza of [place] [facility] Gigjra79IawbylOxjmmjjtzlMedina HospitalCBC WITH AUTO DIFFERENTIALon 69-06-1721Hpxpgholk (Bld) [#/Vol]0.06 10*3/uLNormal0.00-0.20UnKettering Memorial HospitalComment on above:Performed By: #### [id number] ####[facility] ([facility]AKER)[address] [place], [place] [address]Ruwryoogk/100 WBC (Bld)0.8 %Normal 0.0-1.0UnKettering Memorial HospitalComment on above:Performed By: #### [id number] ####[facility] (BE[facility]ER)[address] [place] [address] Eosinophils (Bld) [#/Vol]0.43 10*3/uLNormal0.00-0.50UnKettering Memorial HospitalComment on above:Performed By: #### [id number] ####[facility] (AKER)[address] [place], [place] [address]Jyqumeiwreo/100 WBC (Bld)5.5 %Normal 0.0-6.0UnKettering Memorial HospitalComment on above:Performed By: #### [id number] ####[facility] (AKER)[address] [place] [address] Erythrocyte distribution width (RBC) [Ratio]15.2 %High11.5-15.0UnKettering Memorial HospitalComment on above:Performed By: #### [id number] ####[facility] (BE[facility]ER)[address] [place], [place] [address]EPXZOPRZSPC MEAN CORPUSCULAR HEMOGLOBIN CONCENTRATION (G/DL) BY XKUOJMVUG78.8 g/dLLow32.0-35.0 [facility] HospitalComment on above:Performed By: #### [id number] ####[facility] (BE[facility]ER)[address] [place], [place] [address]Zfisknsinq (Bld) [Volume fraction]45.4 %Wgtlui78.0-55.0Un[facility] Hospital Comment on above:Performed By: #### [id number] ####[facility] (BE[facility]ER)[address] [place], [place] [address]Ydsuvjeuqk (Bld) [Mass/Vol]14.0 g/nRNwuoce41.0-17.0 [facility] HospitalComment on above:Performed By: #### [id number] ####[facility] (BE[facility]ER)[address] [place] [address]Vqkmzsbj granulocytes (Bld) [#/Vol]0.03 10*3/uLNormal0.00-0.20UnK[facility]tering Memorial HospitalComment on above:Performed By: #### [id number] ####[facility] (BE[facility]ER)[address] [place], [place] [address]Tdewddhu granulocytes/100 WBC (Bld)0.4 %Normal0.0-1.0UnKettering Memorial HospitalComment on above:Performed By: #### [id number] ####[facility] (BE[facility]ER)[address] [place] [address] Lymphocytes (Bld) [#/Vol]1.82 10*3/uLNormal1.20-4.00UnKettering Memorial HospitalComment on above:Performed By: #### [id number] ####[facility] (BE[facility]ER)[address] [place], [place] [address]Dbwslesgrxq/100 WBC (Bld)23.2 %Normal 20.0-45.0UnKettering Memorial HospitalComment on above:Performed By: #### [id number] ####[facility] (BE[facility]ER)[address] [place], [place] [address]DUL (RBC) [Entitic mass]29.1 tjUrbrws22.0-33.0UnK[facility]tering [facility] Hospital Comment on above:Performed By: #### [id number] ####[facility] (BE[facility]ER)[address] [place], [place] [address]GRR (RBC) [Entitic vol]94.4 pHBuihjz99.0-98.0 [facility] HospitalComment on above:Performed By: #### [id number] ####[facility] (BE[facility]ER)[address] [place], [place] [address]Stgehphks (Bld) [#/Vol]0.88 10*3/uLNormal0.10-1.00UnKettering Memorial HospitalComment on above:Performed By: #### [id number] ####[facility] (BEAKER)[address] [place] [place] [address]Dsbabqoqn/100 WBC (Bld)11.2 %Normal5.0-12.0UnKettering Memorial HospitalComment on above:Performed By: #### [id number] ####[facility] (BE[facility]ER)[address] [place] [address]Pctncjzhfwv (Bld) [#/Vol] 4.62 10*3/uLNormal1.60-7.60UnKettering Memorial HospitalComment on above: Performed By: #### [id number] ####[facility] ([facility])[address] [place] [address]Uryfguucowb/100 WBC (Bld)58.9 %Yeqpba44.0-72.0UnKettering Memorial HospitalComment on above:Performed By: #### [id number] ####[facility] ([facility])[address] [place] [address]JZCO (PER 100 WBCS) BY AUTOMATED COUNT0.0 %Sozifd3HwfnhjojqfKettering Memorial HospitalComment on above: Performed By: #### [id number] ####[facility] (BEAKER)[address] [place] [address]ERPQLEKDW (10*3/UL) IN BLOOD AUTOMATED PNOVT432 10*3/uLNormal 150-400UnKettering Memorial HospitalComment on above:Performed By: #### [id number] ####[facility] (BEAKER)[address] [place] [address]KVD (Bld) [#/Vol]4.81 10*6/uLNormal4.20-5.70Un[facility] Hospital Comment on above:Performed By: #### [id number] ####[facility] (BE[facility]ER)[address] [place] [address]AOP (Bld) [#/Vol]7.84 10*3/uLNormal4.00-10.60 [facility] HospitalComment on above:Performed By: #### [id number] ####[facility] ([facility])[address] [place] [address]NGRMJYBSXbo 26-84-9913Trijijjpn [Mass/Vol]1.6 mg/dLLow1.9-2.7UnKettering Memorial HospitalComment on above:Performed By: #### [id number] ####[facility] ([facility] [facility] [place] [address]KHUMSTQWdb 80-15-2971ZVJLEGBQSidgxs [facility] HospitalPHOSPHORUSon 23-11-2473Sskiiiudj [Mass/Vol] 3.4 mg/dLNormal2.5-5.0UnKettering Memorial HospitalComment on above: Performed By: #### [id number] ####[facility] ([facility])[address] [place], [place] [address]OFAT GLUCOSE METER UNSOLICITED RESULTSon 46-58-0850Lazlxrx [Mass/Vol]244 mg/sEOndj24-376OvyvbieuksKettering Memorial HospitalComment on above:Order Comment: Waived Testing in the ED is performed under the ED CLIA certificate #[id number].Result Comment: drockolPerformed By: #### [id number] ####[facility] ([facility])[address] [place], [place] [address]Lrthdde [Mass/Vol]165 mg/mAUprp44-391RxsgojhfsmKettering Memorial HospitalComment on above:Order Comment: Waived Testing in the ED is performed under the ED CLIA certificate #[id number].Result Comment: piyhqlm9Bpuevdxfl By: #### [id number] ####[facility] ([facility])[address] [place], [place] [address]Kuotmbh [Mass/Vol]110 mg/hFOdge50-267EcyrfnxugkKettering Memorial HospitalComment on above:Order Comment: Waived Testing in the ED is performed under the ED CLIA certificate #[id number].Result Comment: sprwmvs9Vgyckokdt By: #### [id number] ####[facility] ([facility])[address] [place] [address]Nkbemnq [Mass/Vol]157 mg/hEKqau26-314MkguncwgcfKettering Memorial HospitalComment on above:Order Comment: Waived Testing in the ED is performed under the ED CLIA certificate #[id number].Result Comment: fnvavkj6Tmayoypcp By: #### [id number] ####[facility] ([facility])[address] [place] [id number] 09-07-2024 30NormalUniversity [facility]30NormalUniversMedina HospitalBASIC METABOLIC PANELon 63-55-1399Dplaz gap [Moles/Vol]9 mmol/LNormal7-20 [facility] HospitalComment on above:Performed By: #### [id number] ####[facility] ([facility])[address] [place], [place] [address]Lngjhxv [Mass/Vol]9.6 mg/dLNormal8.6-10.3UnKettering Memorial HospitalComment on above:Performed By: #### [id number] ####[facility] ([facility])[address] [place] [address]Rylnvart [Moles/Vol]100 mmol/MWgtshx07-271PzqshzbqgoKettering Memorial HospitalComment on above:Performed By: #### [id number] ####[facility] ([facility])[address] [place], [place] [address]KN6 [Moles/Vol]32 mmol/DKbpm64-67 [facility] HospitalComment on above:Performed By: #### [id number] ####[facility] ([facility])[address] [place], [place] [address]Fjehzajnlv [Mass/Vol]0.78 mg/dLNormal0.70-1.30UnKettering Memorial HospitalComment on above:Performed By: #### [id number] ####[facility] ([facility])[address] [place] [address]HSBDMYEVZV FILTRATION RATE ML/MIN/1.73 SQ M.HWGICAPEY43.0 mL/min/1.73m*2Normal>60.0UnKettering Memorial HospitalComment on above: Result Comment: [facility]???s estimated glomerular filtration rate (eGFR) will [...] potential consequences that do not disproportionately affect anyone group of individuals.Performed By: #### [id number] ####[facility] ([facility])[address] [place] [address]Zezlpxp [Mass/Vol]153 mg/qZKqln49-486RsbgbpnmjdKettering Memorial HospitalComment on above:Performed By: #### [id number] ####[facility] ([facility])[address] [place], [place] [address]Folxgmgjh [Moles/Vol]4.1 mmol/L Normal3.5-5.1UnKettering Memorial HospitalComment on above:Performed By: #### [id number] ####[facility] ([facility])[address] [place] [address] Sodium [Moles/Vol]137 mmol/DBmcazx246-236AcsaolmajaKettering Memorial Hospital Comment on above:Performed By: #### [id number] ####[facility] ([facility])[address] [place], [place] [address]Pyob nitrogen [Mass/Vol]19 mg/dLNormal7-25 [facility] HospitalComment on above:Performed By: #### [id number] ####[facility] ([facility])[address] [place], [place] [address]JGNA NITROGEN/CREATININE (MASS RATIO) IN SER/PLAS24.4NormalUniversMedina HospitalComment on above:Performed By: #### [id number] ####[facility] ([facility])[address] [place] [address]YYV WITH AUTO DIFFERENTIALon 51-06-2845Pycvlrawk (Bld) [#/Vol]0.06 10*3/uLNormal0.00-0.20UnKettering Memorial HospitalComment on above:Performed By: #### [id number] ####[facility] ([facility])[address] [place] [address]Tpprftfio/100 WBC (Bld)0.8 %Normal 0.0-1.0UnKettering Memorial HospitalComment on above:Performed By: #### [id number] ####[facility] ([facility])[address] [place] [address] Eosinophils (Bld) [#/Vol]0.49 10*3/uLNormal0.00-0.50UnKettering Memorial HospitalComment on above:Performed By: #### [id number] ####[facility] ([facility])[address] [place], [place] [address]Wzpzwnhdgww/100 WBC (Bld)6.8 %High 0.0-6.0UnKettering Memorial HospitalComment on above:Performed By: #### [id number] ####[facility] ([facility])[address] [place] [address] Erythrocyte distribution width (RBC) [Ratio]15.3 %High11.5-15.0UnKettering Memorial HospitalComment on above:Performed By: #### [id number] ####[facility] ([facility])[address] [place], [place] [address]IOZTSGYRBCQ MEAN CORPUSCULAR HEMOGLOBIN CONCENTRATION (G/DL) BY TITQVZXUL33.9 g/dLLow32.0-35.0 [facility] HospitalComment on above:Performed By: #### [id number] ####[facility] ([facility])[address] [place], [place] [address]Swerfytzmq (Bld) [Volume fraction]45.9 %Mzblrx22.0-55.0UnKettering Memorial Hospital Comment on above:Performed By: #### [id number] ####[facility] ([facility])[address] [place], [place] [address]Hoxvwvsesf (Bld) [Mass/Vol]14.2 g/jRMvvatq88.0-17.0 [facility] HospitalComment on above:Performed By: #### [id number] ####[facility] ([facility])[address] [place], [place] [address]Nvljdbzi granulocytes (Bld) [#/Vol]0.04 10*3/uLNormal0.00-0.20UnKettering Memorial HospitalComment on above:Performed By: #### [id number] ####[facility] ([facility])[address] [place], [place] [address]Zgnehreo granulocytes/100 WBC (Bld)0.6 %Normal0.0-1.0UnKettering Memorial HospitalComment on above:Performed By: #### [id number] ####[facility] ([facility])[address] [place] [address] Lymphocytes (Bld) [#/Vol]1.82 10*3/uLNormal1.20-4.00UnKettering Memorial HospitalComment on above:Performed By: #### [id number] ####[facility] ([facility])[address] [place], [place] [address]Isljczxncef/100 WBC (Bld)25.3 %Normal 20.0-45.0UnKettering Memorial HospitalComment on above:Performed By: #### [id number] ####[facility] ([facility])[address] [place], [place] [address]GSV (RBC) [Entitic mass]29.2 reLttcgs46.0-33.0UnKettering Memorial Hospital Comment on above:Performed By: #### [id number] ####[facility] ([facility])[address] [place], [place] [address]MUK (RBC) [Entitic vol]94.4 oVBjhceh09.0-98.0 [facility] HospitalComment on above:Performed By: #### [id number] ####[facility] ([facility])[address] [place] [address]Lqbcchjou (Bld) [#/Vol]0.74 10*3/uLNormal0.10-1.00UnKettering Memorial HospitalComment on above:Performed By: #### [id number] ####[facility] ([facility])[address] [place] [address]Wufrvgevb/100 WBC (Bld)10.3 %Normal5.0-12.0UnKettering Memorial HospitalComment on above:Performed By: #### [id number] ####[facility] ([facility])[address] [place] [address]Hubehlmfxpr (Bld) [#/Vol] 4.04 10*3/uLNormal1.60-7.60UnKettering Memorial HospitalComment on above: Performed By: #### [id number] ####[facility] ([facility])[address] [place] [address]Qfcyswhejep/100 WBC (Bld)56.2 %Xmtqvv83.0-72.0UnKettering Memorial HospitalComment on above:Performed By: #### [id number] ####[facility] ([facility])[address] [place] [address]WSZI (PER 100 WBCS) BY AUTOMATED COUNT0.0 %Ftqovv0WaanwffuloKettering Memorial HospitalComment on above: Performed By: #### [id number] ####[facility] ([facility])[address] [place], [place] [address]RLNGMIFMK (10*3/UL) IN BLOOD AUTOMATED HJVGW913 10*3/uLNormal 150-400UnKettering Memorial HospitalComment on above:Performed By: #### [id number] ####[facility] ([facility])[address] [place] [address]KFQ (Bld) [#/Vol]4.86 10*6/uLNormal4.20-5.70[facility] Comment on above:Performed By: #### [id number] ####[facility] ([facility])[address] [place] [address]HNK (Bld) [#/Vol]7.19 10*3/uLNormal4.00-10.60 [facility] HospitalComment on above:Performed By: #### [id number] ####[facility] ([facility])[address] [place] [address]CWQKPQSFJsw 88-99-6767Smrhadzpp [Mass/Vol]1.7 mg/dLLow1.9-2.7UnKettering Memorial HospitalComment on above:Performed By: #### [id number] ####[facility] ([facility])[address] [place] [address]HNNAYOZFsv 04-60-0955EJPOUBJWZktigs off to Ian engel RNNormalUniversMedina HospitalNURSNOTEHOB up @ 40 degrees, NO c/o of pain, or SOB at this time Urinal at bedside Call light within reach IV INT'd, intact, no redness noted Pulse ox--97% O 2 cont. On pt. Per nasal cannula @ 4 L/min NC Telemetry cont. On ptNormalUTwin City HospitalNURSNOTRipley County Memorial Hospitalal [facility] HospitalNURSNOTETried to call Elias, pt's brother, no answer, still, at this time, 3rd attemptNormalUniversMedina HospitalNURSNOTENormalUniversMedina HospitalNURSNOTEPt's family brought him a hamburger last night, and the pt. Is eating it now. Pt. Encouraged not to eat, since the hamburger has been sitting out all night. Pt. Cont. To eat burger.NormalUnKettering Memorial HospitalNURSNOTEEyes closed resp. Easy @ 18/min Pulse ox--98% Telemetry cont. On ptMercy Health Lorain HospitalOrders Onlyon 29-78-4232Kigweo [id number] Tyler Smith 1960 M Date Provider Department [place] 09/07/20244260-VDLPLMHE-ECCPGEJAYSON*[facility] C No family history on fileNormalUniversity of Hca Houston Healthcare Clear LakePHOSPHORUSon 55-13-6803Wgenxgfqd [Mass/Vol]3.5 mg/dLNormal2.5-5.0UnKettering Memorial HospitalComment on above:Performed By: #### [id number] ####[facility] ([facility])[address] [place], [place] [address]TGLW GLUCOSE METER UNSOLICITED RESULTS on 90-91-1794Rdpawlv [Mass/Vol]200 mg/cUFnkg12-577EmrdryqmkeKettering Memorial HospitalComment on above:Order Comment: Waived Testing in the ED is performed under the ED CLIA certificate #[id number].Result Comment: drockolPerformed By: #### [id number] ####[facility] ([facility])[address] [place] [address] Glucose [Mass/Vol]211 mg/zEMtbz22-187EjscsqwezlKettering Memorial HospitalComment on above:Order Comment: Waived Testing in the ED is performed under the ED CLIA certificate #[id number].Result Comment: vqcgkg7Fuzhjbcdr By: #### [id number] ####[facility] ([facility])[address] [place], [place] [address]Kuzthvb [Mass/Vol]298 mg/bLTqyg91-668RfgnezamjpKettering Memorial HospitalComment on above:Order Comment: Waived Testing in the ED is performed under the ED CLIA certificate #[id number].Result Comment: ozxglf3Toqlfqsrd By: #### [id number] ####[facility] ([facility])[address] [place], [place] [address]Qkitpla [Mass/Vol]155 mg/xPLepf44-004EzwssijzvnKettering Memorial HospitalComment on above:Order Comment: Waived Testing in the ED is performed under the ED CLIA certificate #[id number].Result Comment: jghyve3Itfpvgbxv By: #### [id number] ####[facility] ([facility])[address] [place] [address]wp 09-06-2024 30NormalUniversity [facility] Hospital30NormalUniversity Grant HospitalBASIC METABOLIC PANELon 22-45-9798Qtwlk gap [Moles/Vol]11 mmol/LNormal7-20 [facility] HospitalComment on above:Performed By: #### [id number] ####[facility] ([facility])[address] [place] [address]Pxnptcu [Mass/Vol]9.8 mg/dLNormal8.6-10.3UnKettering Memorial HospitalComment on above:Performed By: #### [id number] ####[facility] ([facility])[address] [place], [place] [address]Cyckqexl [Moles/Vol]98 mmol/WDbnszo86-724GnhixmqgbhKettering Memorial HospitalComment on above:Performed By: #### [id number] ####[facility] ([facility])[address] [place], [place] [address]GM7 [Moles/Vol]31 mmol/VSwmoot46-56 [facility] HospitalComment on above:Performed By: #### [id number] ####[facility] ([facility])[address] [place], [place] [address]Wkvgwcajvh [Mass/Vol]0.90 mg/dLNormal0.70-1.30UnKettering Memorial HospitalComment on above:Performed By: #### [id number] ####[facility] ([facility])[address] [place], [place] [address]MOLRABINCR FILTRATION RATE ML/MIN/1.73 SQ M.UBXYQXTYI90.8 mL/min/1.73m*2Normal>60.0UnKettering Memorial HospitalComment on above: Result Comment: [facility]???s estimated glomerular filtration rate (eGFR) will [...] potential consequences that do not disproportionately affect anyone group of individuals.Performed By: #### [id number] ####[facility] ([facility])[address] [place], [place] [address]Bbdqhab [Mass/Vol]244 mg/qBVyjo65-327NskjsjvklaKettering Memorial HospitalComment on above:Performed By: #### [id number] ####[facility] ([facility])[address] [place], [place] [address]Rhxsfbums [Moles/Vol]3.9 mmol/L Normal3.5-5.1UnKettering Memorial HospitalComment on above:Performed By: #### [id number] ####[facility] ([facility])[address] [place] [address] Sodium [Moles/Vol]136 mmol/EXubjxs184-060OswlnczcmvKettering Memorial Hospital Comment on above:Performed By: #### [id number] ####[facility] ([facility])[address] [place], [place] [address]Uhsc nitrogen [Mass/Vol]18 mg/dLNormal7-25 [facility] HospitalComment on above:Performed By: #### [id number] ####[facility] ([facility])[address] [place], [place] [address]KFQL NITROGEN/CREATININE (MASS RATIO) IN SER/PLAS20.0NormalUniversMedina HospitalComment on above:Performed By: #### [id number] ####[facility] ([facility])[address] [place], [place] [address]YKV WITH AUTO DIFFERENTIALon 98-59-5985Cemolbweh (Bld) [#/Vol]0.07 10*3/uLNormal0.00-0.20UnKettering Memorial HospitalComment on above:Performed By: #### [id number] ####[facility] ([facility])[address] [place], [place] [address]Qtrlpmuby/100 WBC (Bld)1.0 %Normal 0.0-1.0UnKettering Memorial HospitalComment on above:Performed By: #### [id number] ####[facility] ([facility])[address] [place] [address] Eosinophils (Bld) [#/Vol]0.40 10*3/uLNormal0.00-0.50UnKettering Memorial HospitalComment on above:Performed By: #### [id number] ####[facility] ([facility])[address] [place], [place] [address]Qnftwblmmsa/100 WBC (Bld)5.9 %Normal 0.0-6.0UnKettering Memorial HospitalComment on above:Performed By: #### [id number] ####[facility] ([facility])[address] [place] [address] Erythrocyte distribution width (RBC) [Ratio]15.2 %High11.5-15.0UnKettering Memorial HospitalComment on above:Performed By: #### [id number] ####[facility] ([facility])[address] [place], [place] [address]ESRSDUENYFB MEAN CORPUSCULAR HEMOGLOBIN CONCENTRATION (G/DL) BY QGOMPCVJL56.7 g/dLLow32.0-35.0 [facility] HospitalComment on above:Performed By: #### [id number] ####[facility] ([facility])[address] [place], [place] [address]Srffirzbsp (Bld) [Volume fraction]47.3 %Pcfoyt46.0-55.0UnKettering Memorial Hospital Comment on above:Performed By: #### [id number] ####[facility] ([facility])[address] [place], [place] [address]Htwwzpmwfe (Bld) [Mass/Vol]14.5 g/vAPxqojp77.0-17.0 [facility] HospitalComment on above:Performed By: #### [id number] ####[facility] ([facility])[address] [place], [place] [address]Eukygvyi granulocytes (Bld) [#/Vol]0.05 10*3/uLNormal0.00-0.20UnKettering Memorial HospitalComment on above:Performed By: #### [id number] ####[facility] ([facility])[address] [place] [address]Xaulxmad granulocytes/100 WBC (Bld)0.7 %Normal0.0-1.0UnKettering Memorial HospitalComment on above:Performed By: #### [id number] ####[facility] ([facility])[address] [place] [address] Lymphocytes (Bld) [#/Vol]1.52 10*3/uLNormal1.20-4.00UnKettering Memorial HospitalComment on above:Performed By: #### [id number] ####[facility] ([facility])[address] [place], [place] [address]Xdluviwangj/100 WBC (Bld)22.5 %Normal 20.0-45.0UnKettering Memorial HospitalComment on above:Performed By: #### [id number] ####[facility] ([facility])[address] [place], [place] [address]SUX (RBC) [Entitic mass]29.1 mmJdhbbu82.0-33.0UnKettering Memorial Hospital Comment on above:Performed By: #### [id number] ####[facility] ([facility])[address] [place], [place] [address]YNP (RBC) [Entitic vol]95.0 dEZjtjqv76.0-98.0 [facility] HospitalComment on above:Performed By: #### [id number] ####[facility] ([facility])[address] [place], [place] [address]Jzxcvkuka (Bld) [#/Vol]0.74 10*3/uLNormal0.10-1.00UnKettering Memorial HospitalComment on above:Performed By: #### [id number] ####[facility] ([facility])[address] [place] [address]Edhvvlque/100 WBC (Bld)10.9 %Normal5.0-12.0UnKettering Memorial HospitalComment on above:Performed By: #### [id number] ####[facility] ([facility])[address] [place] [address]Oclqapxbbzn (Bld) [#/Vol] 3.98 10*3/uLNormal1.60-7.60UnKettering Memorial HospitalComment on above: Performed By: #### [id number] ####[facility] ([facility])[address] [address]Ovqujheejvt/100 WBC (Bld)59.0 %Mzvryc95.0-72.0UnKettering Memorial HospitalComment on above:Performed By: #### [id number] ####[facility] ([facility])[address] [address]QJFG (PER 100 WBCS) BY AUTOMATED COUNT0.0 %Osonlk1LknkrxbmeiKettering Memorial HospitalComment on above: Performed By: #### [id number] ####[facility] ([facility])[address] [place] [address]AGRIHEDJP (10*3/UL) IN BLOOD AUTOMATED PUENT053 10*3/uLNormal 150-400UnKettering Memorial HospitalComment on above:Performed By: #### [id number] ####[facility] ([facility])[address] [place] [address]ITZ (Bld) [#/Vol]4.98 10*6/uLNormal4.20-5.70UnKettering Memorial Hospital Comment on above:Performed By: #### [id number] ####[facility] ([facility])[address] [place] [address]BTX (Bld) [#/Vol]6.76 10*3/uLNormal4.00-10.60 [facility] HospitalComment on above:Performed By: #### [id number] ####[facility] ([facility])[address] [address]BGVMWXIESwh 56-48-2471Xagnadbpa [Mass/Vol]1.6 mg/dLLow1.9-2.7UnKettering Memorial HospitalComment on above:Performed By: #### [id number] ####[facility] ([facility])[address] [address]NLJSXNYNlw 61-20-4067UMCBSIWAMezmps off to jeanette nurseIan RN--with bedside rounding Pt. Cont. To sit up in a chair at bedside Call light within reachNormalUniTrumbull Memorial HospitalNURSNOTENormal [facility] HospitalNURSNOTEPt refused to go back to bed at this time Pt. Cont. To sit up in a chair at bedside No c/o of SOB or nausea at this time Resp. Easy @ 18/minNormalUniTrumbull Memorial HospitalPHOSPHORUSon 24-59-4099Zkwwjgjke [Mass/Vol]3.4 mg/dLNormal2.5-5.0UnKettering Memorial HospitalComment on above:Performed By: #### [id number] ####[facility] ([facility])[address] [place] [address]ROUH GLUCOSE METER UNSOLICITED RESULTS on 40-96-3448Ugfaqat [Mass/Vol]255 mg/bZZobp27-267DvjqbibktcKettering Memorial HospitalComment on above:Order Comment: Waived Testing in the ED is performed under the ED CLIA certificate #[id number].Result Comment: zvnqras9Ckjqvqcao By: #### [id number] ####[facility] ([facility])[address] [place] [address] Glucose [Mass/Vol]208 mg/rHAayv89-189KbblqpowhhKettering Memorial HospitalComment on above:Order Comment: Waived Testing in the ED is performed under the ED CLIA certificate #[id number].Result Comment: cvhdzwt1Lotyjqzsq By: #### [id number] ####[facility] ([facility])[address] [place] [address]Ycqnjbx [Mass/Vol]173 mg/hPMaml83-366JdzmdzrcczKettering Memorial HospitalComment on above:Order Comment: Waived Testing in the ED is performed under the ED CLIA certificate #[id number].Result Comment: umgzdim3Nczgaqwvv By: #### [id number] ####[facility] ([facility])[address] [place], [place] [address]Cnrzazk [Mass/Vol]210 mg/vIPdqn91-900DeiybvzrulKettering Memorial HospitalComment on above:Order Comment: Waived Testing in the ED is performed under the ED CLIA certificate #[id number].Result Comment: lhqwelz9Dgttsrfey By: #### [id number] ####[facility] ([facility])[address] [place], [place] [address]AJBCM METABOLIC PANELon 17-89-7861Vorzk gap [Moles/Vol]8 mmol/LNormal7-20UnKettering Memorial HospitalComment on above:Performed By: #### [id number] ####[facility] ([facility])[address] [place], [place] [address]Hjxxafp [Mass/Vol]9.9 mg/dLNormal 8.6-10.3UnKettering Memorial HospitalComment on above:Performed By: #### [id number] ####[facility] ([facility])[address] [place], [place] [address]Jcjpyhvk [Moles/Vol]98 mmol/FHhyzed41-894CyhbwqxlrjKettering Memorial HospitalComment on above:Performed By: #### [id number] ####[facility] ([facility])[address], [place] [address]NL7 [Moles/Vol]33 mmol/NNtmt61-90IdgxtnwiveKettering Memorial HospitalComment on above:Performed By: #### [id number] ####[facility] ([facility])[address], [place] [address]Rejjspssoj [Mass/Vol]0.90 mg/dLNormal 0.70-1.30UnKettering Memorial HospitalComment on above:Performed By: #### [id number] ####[facility] ([facility])[address] [place] [address]NVEOKNYVQU FILTRATION RATE ML/MIN/1.73 SQ M.VRLMWMQRV19.8 mL/min/1.73m*2Normal>60.0 [facility] HospitalComment on above:Result Comment: [facility]???s estimated glomerular filtration rate (eG FR) will no longer include consideration of race [...] potential consequences that do not disproportionately affect anyone group of individuals. Performed By: #### [id number] ####[facility] ([facility])[address] [place] [address]Jeykuyb [Mass/Vol]142 mg/vIHwsq92-231PtxpljnpnrKettering Memorial HospitalComment on above:Performed By: #### [id number] ####[facility] ([facility])[address] [place] [address]Leukwixvy [Moles/Vol]4.1 mmol/LNormal 3.5-5.1UnKettering Memorial HospitalComment on above:Performed By: #### [id number] ####[facility] ([facility])[address] [place] [address]Vpuqex [Moles/Vol]135 mmol/TImi227-368JsfzrntugaKettering Memorial HospitalComment on above:Performed By: #### [id number] ####[facility] ([facility])[address] [place], [place] [address]Jkiy nitrogen [Mass/Vol]19 mg/dLNormal7-25UnKettering Memorial HospitalComment on above:Performed By: #### [id number] ####[facility] ([facility])[address] [place], [place] [address]KTYZ NITROGEN/CREATININE (MASS RATIO) IN SER/PLAS21.1NormalUnKettering Memorial HospitalComment on above: Performed By: #### [id number] ####[facility] ([facility])[address] [place] [address]QCV WITH AUTO DIFFERENTIALon 05-56-9550Ysvpvywfy (Bld) [#/Vol]0.07 10*3/uLNormal0.00-0.20UnKettering Memorial HospitalComment on above: Performed By: #### [id number] ####[facility] ([facility])[address] [place] [address]Zpuwlwjex/100 WBC (Bld)0.9 %Normal0.0-1.0UnKettering Memorial HospitalComment on above:Performed By: #### [id number] ####[facility] ([facility])[address] [place], [place] [address]Hdfbbpbnipa (Bld) [#/Vol]0.38 10*3/uL Normal0.00-0.50UnKettering Memorial HospitalComment on above:Performed By: #### [id number] ####[facility] ([facility])[address] [place] [address] Eosinophils/100 WBC (Bld)5.0 %Normal0.0-6.0UnKettering Memorial Hospital Comment on above:Performed By: #### [id number] ####[facility] ([facility])[address] [place], [place] [address]Jbitqmbsrzw distribution width (RBC) [Ratio]15.2 % High11.5-15.0UnKettering Memorial HospitalComment on above:Performed By: #### [id number] ####[facility] ([facility])[address] [place] [address] ERYTHROCYTE MEAN CORPUSCULAR HEMOGLOBIN CONCENTRATION (G/DL) BY MBBVOSBHD37.4 g/dLLow32.0-35.0UnKettering Memorial HospitalComment on above:Performed By: #### [id number] ####[facility] ([facility])[address] [place], [place] [address]Jxkoshuscx (Bld) [Volume fraction]47.1 %Dmiinc59.0-55.0UnKettering Memorial HospitalComment on above:Performed By: #### [id number] ####[facility] ([facility])[address] [place] [address]Vkbqchxcrh (Bld) [Mass/Vol]14.8 g/dL Uxjzyl59.0-17.0UnKettering Memorial HospitalComment on above:Performed By: #### [id number] ####[facility] ([facility])[address] [place] [address] Immature granulocytes (Bld) [#/Vol]0.06 10*3/uLNormal0.00-0.20UnKettering Memorial HospitalComment on above:Performed By: #### [id number] ####[facility] ([facility])[address] [place] [address]Oqypufzo granulocytes/100 WBC (Bld)0.8 %Normal0.0-1.0UnKettering Memorial HospitalComment on above: Performed By: #### [id number] ####[facility] ([facility])[address] [place], [place] [address]Pdbydnfspqe (Bld) [#/Vol]1.99 10*3/uLNormal1.20-4.00 [facility] HospitalComment on above:Performed By: #### [id number] ####[facility] ([facility])[address] [place], [place] [address]Xbklcachtmh/100 WBC (Bld)26.0 %Dkmvuk75.0-45.0UnKettering Memorial HospitalComment on above:Performed By: #### [id number] ####[facility] ([facility])[address] [place], [place] [address]LJF (RBC) [Entitic mass]28.8 wvMaineu68.0-33.0UnKettering Memorial HospitalComment on above:Performed By: #### [id number] ####[facility] ([facility])[address] [place], [place] [address]PKS (RBC) [Entitic vol] 91.6 qFIrokqo71.0-98.0UnKettering Memorial HospitalComment on above: Performed By: #### [id number] ####[facility] ([facility])[address] [place] [address]Jpzexzhhc (Bld) [#/Vol]0.77 10*3/uLNormal0.10-1.00UnKettering Memorial HospitalComment on above:Performed By: #### [id number] ####[facility] ([facility])[address] [place] [address]Hklceqqmy/100 WBC (Bld) 10.1 %Normal5.0-12.0UnKettering Memorial HospitalComment on above: Performed By: #### [id number] ####[facility] ([facility])[address] [place] [address]Klzspwsqcyt (Bld) [#/Vol]4.39 10*3/uLNormal1.60-7.60 [facility] HospitalComment on above:Performed By: #### [id number] ####[facility] ([facility])[address] [place] [address]Mjxjttyengj/100 WBC (Bld)57.2 %Icexbg03.0-72.0UnKettering Memorial HospitalComment on above:Performed By: #### [id number] ####[facility] ([facility])[address] [place] [address]YKVG (PER 100 WBCS) BY AUTOMATED COUNT0.0 %Flqkjv3UvlkjyvxxnKettering Memorial HospitalComment on above:Performed By: #### [id number] ####[facility] ([facility])[address] [place] [address]BKGYRBBYW (10*3/UL) IN BLOOD AUTOMATED JDNFC085 10*3/pMVlsmji452-081HqvhbrmlirKettering Memorial Hospital Comment on above:Performed By: #### [id number] ####[facility] ([facility])[address] [place] [address]AYB (Bld) [#/Vol]5.14 10*6/uLNormal4.20-5.70 [facility] HospitalComment on above:Performed By: #### [id number] ####[facility] ([facility])[address] [place] [address]GJL (Bld) [#/Vol]7.66 10*3/uLNormal4.00-10.60UnKettering Memorial HospitalComment on above:Performed By: #### [id number] ####[facility] ([facility])[address] [place] [address]PBKMHUVJBfu 49-90-8078Yvrgrzmic [Mass/Vol]1.6 mg/dLLow1.9-2.7 [facility] HospitalComment on above:Performed By: #### [id number] ####[facility] ([facility])[address] [place] [address]NIMVPGCQKBft 11-46-6080Zxmycljog [Mass/Vol]2.8 mg/dLNormal2.5-5.0UnKettering Memorial HospitalComment on above:Performed By: #### [id number] ####[facility] ([facility])[address] [place] [address]OBLE GLUCOSE METER UNSOLICITED RESULTS on 27-63-9932Yyzgquv [Mass/Vol]221 mg/zCCivh00-537UwjliyxmghKettering Memorial HospitalComment on above:Order Comment: Waived Testing in the ED is performed under the ED CLIA certificate #[id number].Result Comment: drockolPerformed By: #### [id number] ####[facility] ([facility])[address] [place] [address] Glucose [Mass/Vol]204 mg/nQIfup94-922RlbadubcddKettering Memorial HospitalComment on above:Order Comment: Waived Testing in the ED is performed under the ED CLIA certificate #[id number].Result Comment: tvzwhk8Ufgeebpgf By: #### [id number] ####[facility] ([facility])[address] [place] [address]Tjzgkmt [Mass/Vol]222 mg/lLUbxw10-819NcjlcdmtqrKettering Memorial HospitalComment on above:Order Comment: Waived Testing in the ED is performed under the ED CLIA certificate #[id number].Result Comment: yzkyar1Hcmfcefqb By: #### [id number] ####[facility] ([facility])[address] [place], [place] [address]Nsvlsev [Mass/Vol]141 mg/kYXvbe66-847YgnpmladmhKettering Memorial HospitalComment on above:Order Comment: Waived Testing in the ED is performed under the ED CLIA certificate #[id number].Result Comment: mbtwrk5Moxoxdfyy By: #### [id number] ####[facility] ([facility])[address] [place], [place] [address]ky 09-04-2024 30NormalUniversMedina HospitalBASIC METABOLIC PANELon 09-04-2024 Anion gap [Moles/Vol]7 mmol/LNormal7-20UnK[facility] Memorial Hospital Comment on above:Performed By: #### [id number] ####[facility] ([facility])[address] [place], [place] [address]Zhyxxpu [Mass/Vol]9.6 mg/dLNormal8.6-10.3UnKettering Memorial HospitalComment on above:Performed By: #### [id number] ####[facility] ([facility])[address] [place], [place] [address]Jughbwvl [Moles/Vol]98 mmol/YParuhc28-949QvrhevcdchKettering Memorial HospitalComment on above:Performed By: #### [id number] ####[facility] ([facility])[address] [place] [address] CO2 [Moles/Vol]35 mmol/UBdue06-70NzcqfvgefbKettering Memorial HospitalComment on above:Performed By: #### [id number] ####[facility] ([facility])[address] [place], [place] [address]Lwagxqnoev [Mass/Vol]0.88 mg/dLNormal0.70-1.30UnKettering Memorial HospitalComment on above:Performed By: #### [id number] ####[facility] ([facility])[address] [place] [address]SUMQPGHOTL FILTRATION RATE ML/MIN/1.73 SQ M.DQUURDTXH08.4 mL/min/1.73m*2Normal>60.0UnKettering Memorial HospitalComment on above:Result Comment: [facility]???s estimated glomerular filtration rate (eGFR) will [...] potential consequences that do not disproportionately affect anyone group of individuals.Performed By: #### [id number] ####[facility] ([facility])[address] [place] [address]Kyscuor [Mass/Vol]155 mg/bTGmja54-942DgdskhfdbaKettering Memorial HospitalComment on above:Performed By: #### [id number] ####[facility] ([facility])[address] [place] [address]Czlqdbawz [Moles/Vol]4.3 mmol/LNormal3.5-5.1UnKettering Memorial HospitalComment on above:Performed By: #### [id number] ####[facility] ([facility])[address] [place], [place] [address]Zzviuu [Moles/Vol]136 mmol/L Zevxtl603-395HegtqgdnvsKettering Memorial HospitalComment on above:Performed By: #### [id number] ####[facility] ([facility])[address] [place], [place] [address]Tyzb nitrogen [Mass/Vol]22 mg/dLNormal7-25UnKettering Memorial HospitalComment on above:Performed By: #### [id number] ####[facility] ([facility])[address] [place], [place] [address]IGTG NITROGEN/CREATININE (MASS RATIO) IN SER/PLAS25.0Normal [facility] HospitalComment on above:Performed By: #### [id number] ####[facility] ([facility])[address] [place] [address]PRX WITH AUTO DIFFERENTIALon 07-34-2755Efwqqoomo (Bld) [#/Vol]0.06 10*3/uLNormal0.00-0.20 [facility] HospitalComment on above:Performed By: #### [id number] ####[facility] ([facility])[address] [place] [address]Vrebfdrml/100 WBC (Bld)1.0 %Normal0.0-1.0UnKettering Memorial HospitalComment on above: Performed By: #### [id number] ####[facility] ([facility])[address] [place], [place] [address]Icrnqewcdpo (Bld) [#/Vol]0.38 10*3/uLNormal0.00-0.50 [facility] HospitalComment on above:Performed By: #### [id number] ####[facility] ([facility])[address] [place] [address]Ilqxmlkrtap/100 WBC (Bld)6.1 %High0.0-6.0UnKettering Memorial HospitalComment on above: Performed By: #### [id number] ####[facility] ([facility])[address] [facility], [place] [address]Tkfjnkgoroy distribution width (RBC) [Ratio]15.2 %High 11.5-15.0UnKettering Memorial HospitalComment on above:Performed By: #### [id number] ####[facility] ([facility])[address] [place] [address] ERYTHROCYTE MEAN CORPUSCULAR HEMOGLOBIN CONCENTRATION (G/DL) BY EFOTRYSWV66.6 g/dLLow32.0-35.0UnKettering Memorial HospitalComment on above:Performed By: #### [id number] ####[facility] ([facility])[address] [place] [address]Fpbiuaamqx (Bld) [Volume fraction]48.4 %Tsokxl41.0-55.0[facility] HospitalComment on above:Performed By: #### [id number] ####[facility] ([facility])[address] [place] [address]Jaqohyclak (Bld) [Mass/Vol]14.8 g/dL Znafky15.0-17.0UnKettering Memorial HospitalComment on above:Performed By: #### [id number] ####[facility] ([facility])[address] [place] [address] Immature granulocytes (Bld) [#/Vol]0.04 10*3/uLNormal0.00-0.20UnKettering Memorial HospitalComment on above:Performed By: #### [id number] ####[facility] ([facility])[address] [place] [address]Gpfxfbfe granulocytes/100 WBC (Bld)0.6 %Normal0.0-1.0UnKettering Memorial HospitalComment on above: Performed By: #### [id number] ####[facility] ([facility])[address] [place] [address]Dksmisplqwv (Bld) [#/Vol]1.68 10*3/uLNormal1.20-4.00 [facility] HospitalComment on above:Performed By: #### [id number] ####[facility] ([facility])[address] [place] [address]Fovmoqhkwyf/100 WBC (Bld)27.1 %Qtocog30.0-45.0UnKettering Memorial HospitalComment on above:Performed By: #### [id number] ####[facility] ([facility])[address] [place] [address]QMM (RBC) [Entitic mass]28.6 bmUbivqd46.0-33.0UnKettering Memorial HospitalComment on above:Performed By: #### [id number] ####[facility] ([facility])[address] [place] [address]PBI (RBC) [Entitic vol] 93.6 zPLjegbd48.0-98.0UnKettering Memorial HospitalComment on above: Performed By: #### [id number] ####[facility] ([facility])[address] [place] [address]Sruplkaxg (Bld) [#/Vol]0.74 10*3/uLNormal0.10-1.00UnKettering Memorial HospitalComment on above:Performed By: #### [id number] ####[facility] ([facility])[address] [place] [address]Ekprfcfvj/100 WBC (Bld) 11.9 %Normal5.0-12.0UnKettering Memorial HospitalComment on above: Performed By: #### [id number] ####[facility] ([facility])[address] [place] [address]Qapyzmjjyqm (Bld) [#/Vol]3.31 10*3/uLNormal1.60-7.60 [facility] HospitalComment on above:Performed By: #### [id number] ####[facility] ([facility])[address] [place] [address]Cobrsnqwgij/100 WBC (Bld)53.3 %Enmpyy31.0-72.0UnKettering Memorial HospitalComment on above:Performed By: #### [id number] ####[facility] ([facility])[address] [place] [address]KFLU (PER 100 WBCS) BY AUTOMATED COUNT0.0 %Njrhnj3QyibsmjlysKettering Memorial HospitalComment on above:Performed By: #### [id number] ####[facility] ([facility])[address] [place] [address]GLQZDGSFT (10*3/UL) IN BLOOD AUTOMATED EHNSA925 10*3/vQBbfbmb020-857ZwxyzjpbscKettering Memorial Hospital Comment on above:Performed By: #### [id number] ####[facility] ([facility])[address] [place] [address]KXY (Bld) [#/Vol]5.17 10*6/uLNormal4.20-5.70 [facility] HospitalComment on above:Performed By: #### [id number] ####[facility] ([facility])[address] [place] [address]EBP (Bld) [#/Vol]6.21 10*3/uLNormal4.00-10.60[facility] HospitalComment on above:Performed By: #### [id number] ####[facility] ([facility])[address] [place] [address]IPKZ GLUCOSE METER UNSOLICITED RESULTSon 53-60-3247Pbgfhyr [Mass/Vol]219 mg/xPYdje21-427HrtnvwoqjmKettering Memorial HospitalComment on above:Order Comment: Waived Testing in the ED is performed under the ED CLIA certificate #[id number].Result Comment: ciujdhq6Ywkwmiyls By: #### [id number] ####[facility] ([facility])[address] [place] [address]Zsacfht [Mass/Vol]156 mg/yMNevm82-311KhhmeduzxaKettering Memorial HospitalComment on above:Order Comment: Waived Testing in the ED is performed under the ED CLIA certificate #[id number].Result Comment: kmxbnc9Cfhvkxmvl By: #### [id number] ####[facility] ([facility])[address] [place] [address]Yuuiupq [Mass/Vol]190 mg/zUOjqa80-983QwgwhrdfvqKettering Memorial HospitalComment on above:Order Comment: Waived Testing in the ED is performed under the ED CLIA certificate #[id number].Result Comment: lxuykx8Enhubeigg By: #### [id number] ####[facility] ([facility])[address] [place] [address]Gditjww [Mass/Vol]149 mg/lKWpec85-831ObhlpjhbddKettering Memorial HospitalComment on above:Order Comment: Waived Testing in the ED is performed under the ED CLIA certificate #[id number].Result Comment: gtffda0Rvnmgidkj By: #### [id number] ####[facility] ([facility])[address] [place] [address]xn 09-03-2024 30NormalUniversMedina HospitalBASIC METABOLIC PANELon 09-03-2024 Anion gap [Moles/Vol]11 mmol/LNormal7-20UnKettering Memorial Hospital Comment on above:Performed By: #### [id number] ####[facility] ([facility])[address] [place], [place] [address]Fiurddb [Mass/Vol]9.7 mg/dLNormal8.6-10.3UnKettering Memorial HospitalComment on above:Performed By: #### [id number] ####[facility] ([facility])[address] [place], [place] [address]Gzbibknc [Moles/Vol]96 mmol/QJex78-569AbjvimkgoyKettering Memorial HospitalComment on above:Performed By: #### [id number] ####[facility] ([facility])[address] [place], [place] [address]DM8 [Moles/Vol]33 mmol/JGoih69-15QzwlgwehaxKettering Memorial HospitalComment on above:Performed By: #### [id number] ####[facility] ([facility])[address] [place], [place] [address]Cewkmxecuv [Mass/Vol]0.87 mg/dLNormal0.70-1.30UnKettering Memorial HospitalComment on above:Performed By: #### [id number] ####[facility] ([facility])[address] [place], [place] [address]EAPYEORDJJ FILTRATION RATE ML/MIN/1.73 SQ M.MPBUQDKEB20.8 mL/min/1.73m*2Normal>60.0UnKettering Memorial HospitalComment on above:Result Comment: [facility]???s estimated glomerular filtration rate (eGFR) will [...] potential consequences that do not disproportionately affect anyone group of individuals.Performed By: #### [id number] ####[facility] ([facility])[address] [place], [place] [address]Khwcvaa [Mass/Vol]161 mg/fLBaql70-934VauqcjhejyKettering Memorial HospitalComment on above:Performed By: #### [id number] ####[facility] ([facility])[address] [place], [place] [address]Dsvxqaots [Moles/Vol]4.2 mmol/LNormal3.5-5.1UnKettering Memorial HospitalComment on above:Performed By: #### [id number] ####[facility] ([facility])[address] [place], [place] [address]Lhthnq [Moles/Vol]136 mmol/L Memzmy067-580LulztaypudKettering Memorial HospitalComment on above:Performed By: #### [id number] ####[facility] ([facility])[address] [place], [place] [address]Qzfn nitrogen [Mass/Vol]23 mg/dLNormal7-25UnKettering Memorial HospitalComment on above:Performed By: #### [id number] ####[facility] ([facility])[address] [place], [place] [address]SUEQ NITROGEN/CREATININE (MASS RATIO) IN SER/PLAS26.4Normal [facility] HospitalComment on above:Performed By: #### [id number] ####[facility] ([facility])[address] [facility], [place] [address]WAV WITH AUTO DIFFERENTIALon 02-66-2642Bbnwkoims (Bld) [#/Vol]0.07 10*3/uLNormal0.00-0.20 [facility] HospitalComment on above:Performed By: #### [id number] ####[facility] ([facility])[address] [place], [place] [address]Egqrjerzb/100 WBC (Bld)0.8 %Normal0.0-1.0UnKettering Memorial HospitalComment on above: Performed By: #### [id number] ####[facility] ([facility])[address] [place] [address]Jveqadohyai (Bld) [#/Vol]0.40 10*3/uLNormal0.00-0.50 [facility] HospitalComment on above:Performed By: #### [id number] ####[facility] ([facility])[address] [place], [place] [address]Ezkijjzzdwx/100 WBC (Bld)4.8 %Normal0.0-6.0UnKettering Memorial HospitalComment on above: Performed By: #### [id number] ####[facility] ([facility])[address] [place], [place] [address]Hvpawixbltc distribution width (RBC) [Ratio]15.3 %High 11.5-15.0UnKettering Memorial HospitalComment on above:Performed By: #### [id number] ####[facility] ([facility])[address] [place] [address] ERYTHROCYTE MEAN CORPUSCULAR HEMOGLOBIN CONCENTRATION (G/DL) BY BYCRXDKPV28.8 g/dLLow32.0-35.0UnKettering Memorial HospitalComment on above:Performed By: #### [id number] ####[facility] ([facility])[address] [place], [place] [address]Pbxkdtrvay (Bld) [Volume fraction]46.8 %Xpxwju38.0-55.0UnKettering Memorial HospitalComment on above:Performed By: #### [id number] ####[facility] ([facility])[address] [place], [place] [address]Dswqzfazoz (Bld) [Mass/Vol]14.9 g/dL Uotywq19.0-17.0UnKettering Memorial HospitalComment on above:Performed By: #### [id number] ####[facility] ([facility])[address] [place] [address] Immature granulocytes (Bld) [#/Vol]0.05 10*3/uLNormal0.00-0.20UnKettering Memorial HospitalComment on above:Performed By: #### [id number] ####[facility] ([facility])[address] [place] [address]Jvfswogr granulocytes/100 WBC (Bld)0.6 %Normal0.0-1.0UnKettering Memorial HospitalComment on above: Performed By: #### [id number] ####[facility] ([facility])[address] [place], [place] [address]Hunxbxggdpv (Bld) [#/Vol]1.73 10*3/uLNormal1.20-4.00 [facility] HospitalComment on above:Performed By: #### [id number] ####[facility] ([facility])[address] [place], [place] [address]Nwjacihulij/100 WBC (Bld)20.9 %Zjdfed45.0-45.0UnKettering Memorial HospitalComment on above:Performed By: #### [id number] ####[facility] ([facility])[address] [place], [place] [address]QVO (RBC) [Entitic mass]29.3 fyYzejkc91.0-33.0UnKettering Memorial HospitalComment on above:Performed By: #### [id number] ####[facility] ([facility])[address] [place], [place] [address]EDH (RBC) [Entitic vol] 91.9 sDNwdlao44.0-98.0UnKettering Memorial HospitalComment on above: Performed By: #### [id number] ####[facility] ([facility])[address] [facility] [address]Sageajohp (Bld) [#/Vol]0.96 10*3/uLNormal0.10-1.00UnKettering Memorial HospitalComment on above:Performed By: #### [id number] ####[facility] ([facility])[address] [place] [address]Rmrnyhadv/100 WBC (Bld) 11.6 %Normal5.0-12.0UnKettering Memorial HospitalComment on above: Performed By: #### [id number] ####[facility] ([facility])[address] [address]Odtbzydfcck (Bld) [#/Vol]5.06 10*3/uLNormal1.60-7.60 [facility] HospitalComment on above:Performed By: #### [id number] ####[facility] ([facility])[address] [address]Zhgjbjpaaua/100 WBC (Bld)61.3 %Xfcdcu26.0-72.0UnKettering Memorial HospitalComment on above:Performed By: #### [id number] ####[facility] ([facility])[address] [place] [address]TBCT (PER 100 WBCS) BY AUTOMATED COUNT0.0 %Olwanz7QiprrznzqgKettering Memorial HospitalComment on above:Performed By: #### [id number] ####[facility] ([facility])[address] [place] [address]WGPFGLENT (10*3/UL) IN BLOOD AUTOMATED UVOFS637 10*3/jUFlnzur940-105BdqwoercezKettering Memorial Hospital Comment on above:Performed By: #### [id number] ####[facility] ([facility])[address] [place] [address]AYK (Bld) [#/Vol]5.09 10*6/uLNormal4.20-5.70 [facility] HospitalComment on above:Performed By: #### [id number] ####[facility] ([facility])[address] [address]PGS (Bld) [#/Vol]8.27 10*3/uLNormal4.00-10.60UnKettering Memorial HospitalComment on above:Performed By: #### [id number] ####[facility] ([facility])[address] [place] [address]NZKXAFIQDxd 28-27-2577Higplixek [Mass/Vol]1.6 mg/dLLow1.9-2.7 [facility] HospitalComment on above:Performed By: #### [id number] ####[facility] ([facility])[address] [place] [address]LYPJIQCFRIwm 43-46-0559Dcwnlzvct [Mass/Vol]3.3 mg/dLNormal2.5-5.0UnKettering Memorial HospitalComment on above:Performed By: #### [id number] ####[facility] ([facility])[address] [address]VNNT GLUCOSE METER UNSOLICITED RESULTS on 81-31-2973Gqgizjh [Mass/Vol]168 mg/xKTwsd65-872PtlvtmuwppKettering Memorial HospitalComment on above:Order Comment: Waived Testing in the ED is performed under the ED CLIA certificate #[id number].Result Comment: htrippPerformed By: #### [id number] ####[facility] ([facility])[address] [place] [address] Glucose [Mass/Vol]184 mg/hQPmqd03-817LhuybavxolKettering Memorial HospitalComment on above:Order Comment: Waived Testing in the ED is performed under the ED CLIA certificate #[id number].Result Comment: [id number] By: #### [id number] ####[facility] ([facility])[address] [place] [address]Jjrxuti [Mass/Vol]205 mg/jYSxpu70-341IankljtsurKettering Memorial HospitalComment on above:Order Comment: Waived Testing in the ED is performed under the ED CLIA certificate #[id number].Result Comment: [id number] By: #### [id number] ####[facility] ([facility])[address] [place] [address]Qgidzfm [Mass/Vol]145 mg/wQHfbj17-025WbgwelmzbtKettering Memorial HospitalComment on above:Order Comment: Waived Testing in the ED is performed under the ED CLIA certificate #[id number].Result Comment: [email or web address] By: #### [id number] ####[facility] ([facility])[address] [place] [address]oa 09-02-2024 30NormalUniversMedina HospitalBASIC METABOLIC PANELon 09-02-2024 Anion gap [Moles/Vol]8 mmol/LNormal7-20UnKettering Memorial Hospital Comment on above:Performed By: #### [id number] ####[facility] ([facility])[address] [place], [place] [address]Shuotqp [Mass/Vol]9.5 mg/dLNormal8.6-10.3UnKettering Memorial HospitalComment on above:Performed By: #### [id number] ####[facility] ([facility])[address] [place], [place] [address]Vnuvyyxc [Moles/Vol]99 mmol/ROagtdi17-790LsudlzldknKettering Memorial HospitalComment on above:Performed By: #### [id number] ####[facility] ([facility])[address] [place] [address] CO2 [Moles/Vol]37 mmol/EIzmc35-82CxydklmpkdKettering Memorial HospitalComment on above:Performed By: #### [id number] ####[facility] ([facility])[address] [place], [place] [address]Ldxmhfvemw [Mass/Vol]0.77 mg/dLNormal0.70-1.30UnKettering Memorial HospitalComment on above:Performed By: #### [id number] ####[facility] ([facility])[address] [place], [place] [address]DKLMIEYEQS FILTRATION RATE ML/MIN/1.73 SQ M.FIZOIAQBV40.4 mL/min/1.73m*2Normal>60.0UnKettering Memorial HospitalComment on above:Result Comment: The [facility]???s estimated glomerular filtration rate (eGFR) will [...] potential consequences that do not disproportionately affect anyone group of individuals.Performed By: #### [id number] ####[facility] ([facility])[address] [place], [place] [address]Bvtqiqi [Mass/Vol]160 mg/tIIvjy38-170IrbrssztwfKettering Memorial HospitalComment on above:Performed By: #### [id number] ####[facility] ([facility])[address] [facility] [address]Owohigtvb [Moles/Vol]4.1 mmol/LNormal3.5-5.1UnKettering Memorial HospitalComment on above:Performed By: #### [id number] ####[facility] ([facility])[address] [place], [place] [address]Qmfdje [Moles/Vol]140 mmol/L Pslpll902-413TrmpwobxanKettering Memorial HospitalComment on above:Performed By: #### [id number] ####[facility] ([facility])[address] [place], [place] [address]Eqoj nitrogen [Mass/Vol]16 mg/dLNormal7-25UnKettering Memorial HospitalComment on above:Performed By: #### [id number] ####[facility] ([facility])[address] [place], [place] [address]ADYK NITROGEN/CREATININE (MASS RATIO) IN SER/PLAS20.8Normal [facility] HospitalComment on above:Performed By: #### [id number] ####[facility] ([facility])[address] [place], [place] [address]SNH WITH AUTO DIFFERENTIALon 92-41-0716Gwudmljad (Bld) [#/Vol]0.07 10*3/uLNormal0.00-0.20 [facility] HospitalComment on above:Performed By: #### [id number] ####[facility] ([facility])[address] [place], [place] [address]Vhktmxtoc/100 WBC (Bld)1.0 %Normal0.0-1.0UnKettering Memorial HospitalComment on above: Performed By: #### [id number] ####[facility] ([facility])[address] [place], [place] [address]Olurrgtikdt (Bld) [#/Vol]0.34 10*3/uLNormal0.00-0.50 [facility] HospitalComment on above:Performed By: #### [id number] ####[facility] ([facility])[address] [place], [place] [address]Fhurmvkbtcd/100 WBC (Bld)5.0 %Normal0.0-6.0UnKettering Memorial HospitalComment on above: Performed By: #### [id number] ####[facility] ([facility])[address] [place], [place] [address]Ienxrxuyzeo distribution width (RBC) [Ratio]15.1 %High 11.5-15.0UnKettering Memorial HospitalComment on above:Performed By: #### [id number] ####[facility] ([facility])[address] [place] [address] ERYTHROCYTE MEAN CORPUSCULAR HEMOGLOBIN CONCENTRATION (G/DL) BY EFILFMQJA61.0 g/dLLow32.0-35.0UnKettering Memorial HospitalComment on above:Performed By: #### [id number] ####[facility] ([facility])[address] [place], [place] [address]Wuqyaxeoxj (Bld) [Volume fraction]46.2 %Iwqmex59.0-55.0UnKettering Memorial HospitalComment on above:Performed By: #### [id number] ####[facility] ([facility])[address] [place], [place] [address]Xecrxhfepq (Bld) [Mass/Vol]14.3 g/dL Roshuc62.0-17.0UnKettering Memorial HospitalComment on above:Performed By: #### [id number] ####[facility] ([facility])[address] [place] [address] Immature granulocytes (Bld) [#/Vol]0.04 10*3/uLNormal0.00-0.20UnKettering Memorial HospitalComment on above:Performed By: #### [id number] ####[facility] ([facility])[address] [facility] [facility] [address]Vukmobmh granulocytes/100 WBC (Bld)0.6 %Normal0.0-1.0UnKettering Memorial HospitalComment on above: Performed By: #### [id number] ####[facility] ([facility])[address] [facility] [address]Mklndqdmwgu (Bld) [#/Vol]1.60 10*3/uLNormal1.20-4.00 [facility] HospitalComment on above:Performed By: #### [id number] ####[facility] ([facility])[address] [facility] [address]Vqrqikwqvnc/100 WBC (Bld)23.7 %Wabpci42.0-45.0UnKettering Memorial HospitalComment on above:Performed By: #### [id number] ####[facility] ([facility])[address] [place], [place] [address]BJW (RBC) [Entitic mass]28.8 ioXxidam42.0-33.0UnKettering Memorial HospitalComment on above:Performed By: #### [id number] ####[facility] ([facility])[address] [facility] [facility] [address]CXQ (RBC) [Entitic vol] 93.1 xFTpitpf28.0-98.0UnKettering Memorial HospitalComment on above: Performed By: #### [id number] ####[facility] ([facility])[address] [facility] [address]Dvoyykxmc (Bld) [#/Vol]0.86 10*3/uLNormal0.10-1.00UnKettering Memorial HospitalComment on above:Performed By: #### [id number] ####[facility] ([facility])[address] [place] [address]Olqylvayw/100 WBC (Bld) 12.8 %High5.0-12.0[facility] HospitalComment on above:Performed By: #### [id number] ####[facility] ([facility])[address] [place] [address]Ymdjkoprsee (Bld) [#/Vol]3.83 10*3/uLNormal1.60-7.60UnKettering Memorial HospitalComment on above:Performed By: #### [id number] ####[facility] ([facility])[address] [place] [address]Vwjwjbraneu/100 WBC (Bld)56.9 %Normal 40.0-72.0UnKettering Memorial HospitalComment on above:Performed By: #### [id number] ####[facility] ([facility])[address] [place] [address]TGAW (PER 100 WBCS) BY AUTOMATED COUNT0.0 %Ggvzfx6BbyyzzrrsaKettering Memorial Hospital Comment on above:Performed By: #### [id number] ####[facility] ([facility])[address] [place] [address]RQUQKWPYV (10*3/UL) IN BLOOD AUTOMATED [id number] 10*3/fHQrftbz763-649VdhgnlijboKettering Memorial HospitalComment on above: Performed By: #### [id number] ####[facility] ([facility])[address] [place] [address]IEB (Bld) [#/Vol]4.96 10*6/uLNormal4.20-5.70UnKettering Memorial HospitalComment on above:Performed By: #### [id number] ####[facility] ([facility])[address] [place] [address]MHR (Bld) [#/Vol]6.74 10*3/uLNormal4.00-10.60UnKettering Memorial HospitalComment on above: Performed By: #### [id number] ####[facility] ([facility])[address] [place], [place] [address]HLMKXTTChc 16-18-8510ZIDLBBZYWbuqaiLagiqaivyq of [facility] Medical CenterNURSNOTENormalUniversMedina HospitalPHOSPHORUSon 34-89-9504Aahqhpvyb [Mass/Vol]3.1 mg/dLNormal2.5-5.0UnKettering Memorial HospitalComment on above:Performed By: #### [id number] ####[facility] ([facility])[address] [place], [place] [address]VXDM GLUCOSE METER UNSOLICITED RESULTS on 29-25-8576Xlocwlj [Mass/Vol]289 mg/iQJrgm06-510CocdqlfameKettering Memorial HospitalComment on above:Order Comment: Waived Testing in the ED is performed under the ED CLIA certificate #[id number].Result Comment: [id number] By: #### [id number] ####[facility] ([facility])[address] [place], [place] [address]Uyjyizc [Mass/Vol]260 mg/jCJkan42-065TfdegwknxsA[facility]man [facility] Comment on above:Order Comment: Waived Testing in the ED is performed under the ED CLIA certificate #[id number].Result Comment: sbelcadPerformed By: #### [id number] ####[facility] ([facility])[address] [place], [place] [address]Jpyzwaw [Mass/Vol]204 mg/aGEfqi12-858AauxwzfwooKettering Memorial HospitalComment on above:Order Comment: Waived Testing in the ED is performed under the ED CLIA certificate #[id number].Result Comment: sbelcadPerformed By: #### [id number] ####[facility] ([facility])[address] [place], [place] [address]Rgmeonp [Mass/Vol]166 mg/dXZaee67-227KfmpiugcykKettering Memorial HospitalComment on above:Order Comment: Waived Testing in the ED is performed under the ED CLIA certificate #[id number].Result Comment: sbelcadPerformed By: #### [id number] ####[facility] ([facility])[address] [place], [place] [address]zx 09-01-2024 30NormalUniTrumbull Memorial HospitalBASIC METABOLIC PANELon 09-01-2024 Anion gap [Moles/Vol]7 mmol/LNormal7-20UnKettering Memorial Hospital Comment on above:Performed By: #### [id number] ####[facility] ([facility])[address] [place], [place] [address]Eodwagr [Mass/Vol]9.1 mg/dLNormal8.6-10.3UnKettering Memorial HospitalComment on above:Performed By: #### [id number] ####[facility] ([facility])[address] [place], [place] [address]Emqamxdp [Moles/Vol]98 mmol/OMollum36-121DxpahrmrfzKettering Memorial HospitalComment on above:Performed By: #### [id number] ####[facility] ([facility])[address] [place] [address] CO2 [Moles/Vol]36 mmol/XLbaz87-47CishmfnsotKettering Memorial HospitalComment on above:Performed By: #### [id number] ####[facility] ([facility])[address] [place], [place] [address]Rmhzgtuigu [Mass/Vol]0.84 mg/dLNormal0.70-1.30UnKettering Memorial HospitalComment on above:Performed By: #### [id number] ####[facility] ([facility])[address] [place], [place] [address]SNBYWVFUOQ FILTRATION RATE ML/MIN/1.73 SQ M.NFMZZGSHW47.8 mL/min/1.73m*2Normal>60.0UnKettering Memorial HospitalComment on above:Result Comment: [facility]???s estimated glomerular filtration rate (eGFR) will [...] potential consequences that do not disproportionately affect anyone group of individuals.Performed By: #### [id number] ####[facility] ([facility])[address] [place] [address]Vqefwht [Mass/Vol]190 mg/gFYbxr72-011HevmxqdmyqKettering Memorial HospitalComment on above:Performed By: #### [id number] ####[facility] ([facility])[address] [place] [address]Pbzsbcdyp [Moles/Vol]4.1 mmol/LNormal3.5-5.1UnKettering Memorial HospitalComment on above:Performed By: #### [id number] ####[facility] ([facility])[address] [place], [place] [address]Wvoeea [Moles/Vol]137 mmol/L Jytgfa136-583PgebmdqdzjKettering Memorial HospitalComment on above:Performed By: #### [id number] ####[facility] ([facility])[address] [place], [place] [address]Aync nitrogen [Mass/Vol]18 mg/dLNormal7-25UnKettering Memorial HospitalComment on above:Performed By: #### [id number] ####[facility] ([facility])[address] [place] [facility], [place] [address]AFZJ NITROGEN/CREATININE (MASS RATIO) IN SER/PLAS21.4Normal [facility] HospitalComment on above:Performed By: #### [id number] ####[facility] ([facility])[address] [place] [address]MQP WITH AUTO DIFFERENTIALon 19-39-8522Ixkadgdbu (Bld) [#/Vol]0.07 10*3/uLNormal0.00-0.20 [facility] HospitalComment on above:Performed By: #### [id number] ####[facility] ([facility])[address] [place], [place] [address]Oiqugvrbc/100 WBC (Bld)1.0 %Normal0.0-1.0UnKettering Memorial HospitalComment on above: Performed By: #### [id number] ####[facility] ([facility])[address] [place] [address]Vicpwaynhfs (Bld) [#/Vol]0.37 10*3/uLNormal0.00-0.50 [facility] HospitalComment on above:Performed By: #### [id number] ####[facility] ([facility])[address] [place], [place] [address]Lexlgrmauiz/100 WBC (Bld)5.1 %Normal0.0-6.0UnKettering Memorial HospitalComment on above: Performed By: #### [id number] ####[facility] ([facility])[address] [place], [place] [address]Ultzyapmeik distribution width (RBC) [Ratio]15.1 %High 11.5-15.0UnKettering Memorial HospitalComment on above:Performed By: #### [id number] ####[facility] ([facility])[address] [place] [address] ERYTHROCYTE MEAN CORPUSCULAR HEMOGLOBIN CONCENTRATION (G/DL) BY LFRWUHWKE57.3 g/dLLow32.0-35.0UnKettering Memorial HospitalComment on above:Performed By: #### [id number] ####[facility] ([facility])[address] [place], [place] [address]Adjibpimmq (Bld) [Volume fraction]46.3 %Ifwwtt60.0-55.0UnKettering Memorial HospitalComment on above:Performed By: #### [id number] ####[facility] ([facility])[address] [place], [place] [address]Pesfkipumy (Bld) [Mass/Vol]14.5 g/dL Tfhfor57.0-17.0UnKettering Memorial HospitalComment on above:Performed By: #### [id number] ####[facility] ([facility])[address] [place] [address] Immature granulocytes (Bld) [#/Vol]0.04 10*3/uLNormal0.00-0.20UnKettering Memorial HospitalComment on above:Performed By: #### [id number] ####[facility] ([facility])[address] [place] [place] [address]Xijjdiry granulocytes/100 WBC (Bld)0.6 %Normal0.0-1.0UnKettering Memorial HospitalComment on above: Performed By: #### [id number] ####[facility] ([facility])[address] [facility], [place] [address]Fjfeufgcljt (Bld) [#/Vol]1.46 10*3/uLNormal1.20-4.00 [facility] HospitalComment on above:Performed By: #### [id number] ####[facility] ([facility])[address] [place], [place] [address]Lrnuhggxbui/100 WBC (Bld)20.2 %Xnsqfv66.0-45.0UnKettering Memorial HospitalComment on above:Performed By: #### [id number] ####[facility] ([facility])[address] [place] [place] [address]KDX (RBC) [Entitic mass]29.1 zuKqsduz63.0-33.0UnKettering Memorial HospitalComment on above:Performed By: #### [id number] ####[facility] ([facility])[address] [place], [place] [address]MYY (RBC) [Entitic vol] 92.8 lLWghnpc44.0-98.0UnKettering Memorial HospitalComment on above: Performed By: #### [id number] ####[facility] ([facility])[address] [facility] [place] [address]Lnbpjsofj (Bld) [#/Vol]0.85 10*3/uLNormal0.10-1.00UnKettering Memorial HospitalComment on above:Performed By: #### [id number] ####[facility] ([facility])[address] [place] [address]Sagcfwrbk/100 WBC (Bld) 11.8 %Normal5.0-12.0UnKettering Memorial HospitalComment on above: Performed By: #### [id number] ####[facility] ([facility])[address] [place] [address]Gmeljkeyhfc (Bld) [#/Vol]4.43 10*3/uLNormal1.60-7.60 [facility] HospitalComment on above:Performed By: #### [id number] ####[facility] ([facility])[address] [address]Idjgthbtqiz/100 WBC (Bld)61.3 %Glwlue84.0-72.0UnKettering Memorial HospitalComment on above:Performed By: #### [id number] ####[facility] ([facility])[address] [place] [address]ISUA (PER 100 WBCS) BY AUTOMATED COUNT0.0 %Dvxffl3AfrarvgdkbKettering Memorial HospitalComment on above:Performed By: #### [id number] ####[facility] ([facility])[address] [place] [address]VBBDOZDYF (10*3/UL) IN BLOOD AUTOMATED [id number] 10*3/oBIccrlk034-753NalsbwuamdKettering Memorial Hospital Comment on above:Performed By: #### [id number] ####[facility] ([facility])[address] [place] [address]NVJ (Bld) [#/Vol]4.99 10*6/uLNormal4.20-5.70 [facility] HospitalComment on above:Performed By: #### [id number] ####[facility] ([facility])[address] [place] [address]ELZ (Bld) [#/Vol]7.22 10*3/uLNormal4.00-10.60UnKettering Memorial HospitalComment on above:Performed By: #### [id number] ####[facility] ([facility])[address] [place] [address]LLBQWLABTde 38-26-2267Wupfwlrjo [Mass/Vol]1.8 mg/dLLow1.9-2.7 [facility] HospitalComment on above:Performed By: #### [id number] ####[facility] ([facility])[address] [place] [address]HWOH GLUCOSE METER UNSOLICITED RESULTSon 71-06-8558Hezuhtw [Mass/Vol]225 mg/gRKncw45-450 [facility] HospitalComment on above:Order Comment: Waived Testing in the ED is performed under the ED CLIA certificate #[id number].Result Comment: drockolPerformed By: #### [id number] ####[facility] ([facility])[address] [place], [place] [address]Awpfbxb [Mass/Vol]181 mg/sEThje09-572ChdmguwofdKettering Memorial HospitalComment on above:Order Comment: Waived Testing in the ED is performed under the ED CLIA certificate #[id number].Result Comment: oigfxbg41 Performed By: #### [id number] ####[facility] ([facility])[address] [place], [place] [address]Qptaaum [Mass/Vol]209 mg/jFCvsq21-140JhdohdyxxkKettering Memorial HospitalComment on above:Order Comment: Waived Testing in the ED is performed under the ED CLIA certificate #[id number].Result Comment: [email or web address] Performed By: #### [id number] ####[facility] ([facility])[address] [place], [place] [address]Bygodrg [Mass/Vol]181 mg/gRLjfr52-694WkzvcubekmKettering Memorial HospitalComment on above:Order Comment: Waived Testing in the ED is performed under the ED CLIA certificate #[id number].Result Comment: [email or web address] Performed By: #### [id number] ####[facility] ([facility])[address] [place] [address]th 50-50-[address]UxqooaImkkdopjai of [place] [facility] Jezwny60 NormalUnKettering Memorial HospitalBASIC METABOLIC PANELon 89-66-0620Aioxt gap [Moles/Vol]8 mmol/LNormal7-20UnKettering Memorial HospitalComment on above:Performed By: #### [id number] ####[facility] ([facility])[address] [place], [place] [address]Tivcwoh [Mass/Vol]9.6 mg/dLNormal8.6-10.3UnKettering Memorial HospitalComment on above:Performed By: #### [id number] ####[facility] ([facility])[address] [place], [place] [address]Pujhlgeu [Moles/Vol]97 mmol/JNsf68-821 [facility] HospitalComment on above:Performed By: #### [id number] ####[facility] ([facility])[address] [place], [place] [address]GV[address] [Moles/Vol] 35 mmol/MCtjb00-50XqsytvslseKettering Memorial HospitalComment on above:Performed By: #### [id number] ####[facility] ([facility])[address] [place] [address] Creatinine [Mass/Vol]0.85 mg/dLNormal0.70-1.30UnKettering Memorial HospitalComment on above:Performed By: #### [id number] ####[facility] ([facility])[address] [place], [place] [address]GQOJNSKYZX FILTRATION RATE ML/MIN/1.73 SQ M.MIWIOPRMD12.4 mL/min/1.73m*2Normal>60.0UnKettering Memorial Hospital Comment on above:Result Comment: The [facility]???s estimated glomerular filtration rate (eGFR) will no longer include consideration of race in its calculation. The National Kid[employer] Foundation???s eGFR Task Force developed new recommendations for the estimation of the glomerular filtration ra te in the [place] They recommend immediate implementation of the new equation refit without the race variable in all laboratories because the calculation does not include race. In addition to not including race in the calculation and reporting, it included diversity in its development, and has acceptable performance characteristics and potential consequences that do not disproportionately affect anyone group of individuals.Performed By: #### [id number] ####[facility] ([facility])[address] [place] [address]Hpurjiz [Mass/Vol]205 mg/tSKhmt71-711ZcyciwqfnyKettering Memorial HospitalComment on above:Performed By: #### [id number] ####[facility] ([facility])[address] [place] [address]Uthtpjimr [Moles/Vol]3.9 mmol/LNormal3.5-5.1UnKettering Memorial HospitalComment on above:Performed By: #### [id number] ####[facility] ([facility])[address] [place] [address]Uknszx [Moles/Vol]136 mmol/L Pognav701-760SdyteqnycgKettering Memorial HospitalComment on above:Performed By: #### [id number] ####[facility] ([facility])[address] [place] [address]Vadp nitrogen [Mass/Vol]21 mg/dLNormal7-25UnKettering Memorial HospitalComment on above:Performed By: #### [id number] ####[facility] ([facility])[address] [place] [address]NDTJ NITROGEN/CREATININE (MASS RATIO) IN SER/PLAS24.7Normal [facility] HospitalComment on above:Performed By: #### [id number] ####[facility] ([facility])[address] [place] [address]OVK WITH AUTO DIFFERENTIALon 90-15-0670Toqpxijqr (Bld) [#/Vol]0.06 10*3/uLNormal0.00-0.20 [facility] HospitalComment on above:Performed By: #### [id number] ####[facility] ([facility])[address] [place] [address]Wnmzkuiys/100 WBC (Bld)0.8 %Normal0.0-1.0UnKettering Memorial HospitalComment on above: Performed By: #### [id number] ####[facility] ([facility])[address] [place], [place] [address]Odshlmhfybb (Bld) [#/Vol]0.38 10*3/uLNormal0.00-0.50 [facility] HospitalComment on above:Performed By: #### [id number] ####[facility] ([facility])[address] [place], [place] [address]Qoewjozcnlo/100 WBC (Bld)5.3 %Normal0.0-6.0UnKettering Memorial HospitalComment on above: Performed By: #### [id number] ####[facility] ([facility])[address] [place], [place] [address]Bpsabdwdlce distribution width (RBC) [Ratio]15.2 %High 11.5-15.0UnKettering Memorial HospitalComment on above:Performed By: #### [id number] ####[facility] ([facility])[address] [place] [address] ERYTHROCYTE MEAN CORPUSCULAR HEMOGLOBIN CONCENTRATION (G/DL) BY JWORYNXFK81.4 g/dLLow32.0-35.0UnKettering Memorial HospitalComment on above:Performed By: #### [id number] ####[facility] ([facility])[address] [place], [place] [address]Wzekqhtrpj (Bld) [Volume fraction]48.3 %Mmusvm79.0-55.0UnKettering Memorial HospitalComment on above:Performed By: #### [id number] ####[facility] ([facility])[address] [place], [place] [address]Iypyutackg (Bld) [Mass/Vol]14.7 g/dL Hcabdu68.0-17.0UnKettering Memorial HospitalComment on above:Performed By: #### [id number] ####[facility] ([facility])[address] [place] [address] Immature granulocytes (Bld) [#/Vol]0.06 10*3/uLNormal0.00-0.20UnKettering Memorial HospitalComment on above:Performed By: #### [id number] ####[facility] ([facility])[address] [place], [place] [address]Mozhqodw granulocytes/100 WBC (Bld)0.8 %Normal0.0-1.0UnKettering Memorial HospitalComment on above: Performed By: #### [id number] ####[facility] ([facility])[address] [place], [place] [address]Xwtbbrcxqlm (Bld) [#/Vol]1.17 10*3/uLLow1.20-4.00UnKettering Memorial HospitalComment on above:Performed By: #### [id number] ####[facility] ([facility])[address] [place], [place] [address]Eevontyozwu/100 WBC (Bld) 16.3 %Low20.0-45.0UnKettering Memorial HospitalComment on above:Performed By: #### [id number] ####[facility] ([facility])[address] [place], [place] [address]RWA (RBC) [Entitic mass]29.0 pgBsntqc18.0-33.0UnKettering Memorial HospitalComment on above:Performed By: #### [id number] ####[facility] ([facility])[address] [place], [place] [address]GZT (RBC) [Entitic vol]95.3 fLNormal 82.0-98.0UnKettering Memorial HospitalComment on above:Performed By: #### [id number] ####[facility] ([facility])[address] [place] [address] Monocytes (Bld) [#/Vol]0.82 10*3/uLNormal0.10-1.00UnKettering Memorial HospitalComment on above:Performed By: #### [id number] ####[facility] ([facility])[address] [facility] [address]Fjiecoyos/100 WBC (Bld)11.4 %Normal 5.0-12.0UnKettering Memorial HospitalComment on above:Performed By: #### [id number] ####[facility] ([facility])[address] [place] [address] Neutrophils (Bld) [#/Vol]4.70 10*3/uLNormal1.60-7.60UnKettering Memorial HospitalComment on above:Performed By: #### [id number] ####[facility] ([facility])[address] [place] [address]Doxajgajvmw/100 WBC (Bld)65.4 %Normal 40.0-72.0UnKettering Memorial HospitalComment on above:Performed By: #### [id number] ####[facility] ([facility])[address] [place] [address]KYVH (PER 100 WBCS) BY AUTOMATED COUNT0.0 %Pgahyf8XohbtfntnfKettering Memorial Hospital Comment on above:Performed By: #### [id number] ####[facility] ([facility])[address] [place] [address]RNOUMLOBS (10*3/UL) IN BLOOD AUTOMATED QJDZM244 10*3/sKNsrbvl149-907GhkfkdtvzqKettering Memorial HospitalComment on above: Performed By: #### [id number] ####[facility] ([facility])[address] [place] [address]ILS (Bld) [#/Vol]5.07 10*6/uLNormal4.20-5.70UnKettering Memorial HospitalComment on above:Performed By: #### [id number] ####[facility] ([facility])[address] [place] [address]EVA (Bld) [#/Vol]7.19 10*3/uLNormal4.00-10.60UnKettering Memorial HospitalComment on above: Performed By: #### [id number] ####[facility] ([facility])[address] [place] [address]BJWMTUPWBhw 11-45-5692Isoaerwjk [Mass/Vol]1.6 mg/dLLow1.9-2.7 [facility] HospitalComment on above:Performed By: #### [id number] ####[facility] ([facility])[address] [place] [address]MXOQ GLUCOSE METER UNSOLICITED RESULTSon 19-70-6034Uxyxbfq [Mass/Vol]281 mg/oKYrdt21-407 [facility] HospitalComment on above:Order Comment: Waived Testing in the ED is performed under the ED CLIA certificate #[id number].Result Comment: [email or web address] By: #### [id number] ####[facility] ([facility])[address] [place] [address]Uvimokr [Mass/Vol]157 mg/vLPlsz01-812HdtakpvgybKettering Memorial HospitalComment on above:Order Comment: Waived Testing in the ED is performed under the ED CLIA certificate #[id number].Result Comment: [email or web address] Performed By: #### [id number] ####[facility] ([facility])[address] [place] [address]Bvtsbzq [Mass/Vol]212 mg/tAGvoy72-660NftrwrqmztKettering Memorial HospitalComment on above:Order Comment: Waived Testing in the ED is performed under the ED CLIA certificate #[id number].Result Comment: [email or web address] Performed By: #### [id number] ####[facility] ([facility])[address] [place] [address]Gpllzsw [Mass/Vol]167 mg/dEUytd75-888EqplfgrhrzKettering Memorial HospitalComment on above:Order Comment: Waived Testing in the ED is performed under the ED CLIA certificate #[id number].Result Comment: [email or web address] Performed By: #### [id number] ####[facility] ([facility])[address] [place] [id number] 80-55-005560HkljgkPyeedzhszl of [facility] BASIC METABOLIC PANELon 72-17-8307Ymxbm gap [Moles/Vol]10 mmol/LNormal7-20 [facility] HospitalComment on above:Performed By: #### [id number] ####[facility] ([facility])[address] [place], [place] [address]Bbymfor [Mass/Vol]10.3 mg/dLNormal8.6-10.3UnKettering Memorial HospitalComment on above:Performed By: #### [id number] ####[facility] ([facility])[address] [place], [place] [address]Eadezszt [Moles/Vol]94 mmol/YIsj21-032ZesjnyqeawKettering Memorial HospitalComment on above:Performed By: #### [id number] ####[facility] ([facility])[address] [place], [place] [address]CS6 [Moles/Vol]34 mmol/JHecy02-00 [facility] HospitalComment on above:Performed By: #### [id number] ####[facility] ([facility])[address] [place], [place] [address]Huvszsbnlu [Mass/Vol]0.98 mg/dLNormal0.70-1.30UnKettering Memorial HospitalComment on above:Performed By: #### [id number] ####[facility] ([facility])[address] [place], [place] [address]ILMCAQYQDV FILTRATION RATE ML/MIN/1.73 SQ M.PPXETJIWW14.6 mL/min/1.73m*2Normal>60.0UnKettering Memorial HospitalComment on above: Result Comment: [facility]???s estimated glomerular filtration rate (eGFR) will [...] potential consequences that do not disproportionately affect anyone group of individuals.Performed By: #### [id number] ####[facility] ([facility])[address] [place], [place] [address]Bofrgjm [Mass/Vol]184 mg/lMZihe03-633ZsmsfctaztKettering Memorial HospitalComment on above:Performed By: #### [id number] ####[facility] ([facility])[address] [place] [address]Kwvfxwjro [Moles/Vol]4.1 mmol/L Normal3.5-5.1UnKettering Memorial HospitalComment on above:Performed By: #### [id number] ####[facility] ([facility])[address] [place] [address] Sodium [Moles/Vol]134 mmol/FHmo127-830MrvuuiejizKettering Memorial HospitalComment on above:Performed By: #### [id number] ####[facility] ([facility])[address] [place] [address]Fqhk nitrogen [Mass/Vol]27 mg/dLHigh7-25UnKettering Memorial HospitalComment on above:Performed By: #### [id number] ####[facility] ([facility])[address] [place], [place] [address]WLNR NITROGEN/CREATININE (MASS RATIO) IN SER/PLAS27.6NormalUniversMedina HospitalComment on above: Performed By: #### [id number] ####[facility] ([facility])[address] [place] [address]TFI WITH AUTO DIFFERENTIALon 27-77-77[address]Caifpupuk (Bld) [#/Vol]0.09 10*3/uLNormal0.00-0.20UnKettering Memorial HospitalComment on above: Performed By: #### [id number] ####[facility] ([facility])[address] [place] [address]Ryuthdcle/100 WBC (Bld)1.0 %Normal0.0-1.0UnKettering Memorial HospitalComment on above:Performed By: #### [id number] ####[facility] ([facility])[address] [place] [address]Crnrhbzqblr (Bld) [#/Vol]0.54 10*3/uL High0.00-0.50UnKettering Memorial HospitalComment on above:Performed By: #### [id number] ####[facility] ([facility])[address] [place] [address] Eosinophils/100 WBC (Bld)5.9 %Normal0.0-6.0UnKettering Memorial Hospital Comment on above:Performed By: #### [id number] ####[facility] ([facility])[address] [place], [place] [address]Noosridulru distribution width (RBC) [Ratio]14.9 % Kdbohi77.5-15.0UnKettering Memorial HospitalComment on above:Performed By: #### [id number] ####[facility] ([facility])[address] [place] [address] ERYTHROCYTE MEAN CORPUSCULAR HEMOGLOBIN CONCENTRATION (G/DL) BY MGCJEKEFF28.0 g/dLLow32.0-35.0UnKettering Memorial HospitalComment on above:Performed By: #### [id number] ####[facility] ([facility])[address] [place], [place] [address]Ibwobfvyml (Bld) [Volume fraction]50.9 %Tcmppj60.0-55.0UnKettering Memorial HospitalComment on above:Performed By: #### [id number] ####[facility] ([facility])[address] [place], [place] [address]Xajkmckbxj (Bld) [Mass/Vol]15.8 g/dL Tqytrz36.0-17.0UnKettering Memorial HospitalComment on above:Performed By: #### [id number] ####[facility] ([facility])[address] [place] [address] Immature granulocytes (Bld) [#/Vol]0.06 10*3/uLNormal0.00-0.20UnKettering Memorial HospitalComment on above:Performed By: #### [id number] ####[facility] ([facility])[address] [place], [place] [address]Lwbdxskd granulocytes/100 WBC (Bld)0.7 %Normal0.0-1.0UnKettering Memorial HospitalComment on above: Performed By: #### [id number] ####[facility] ([facility])[address] [place] [address]Ykmxbbvjfvh (Bld) [#/Vol]1.65 10*3/uLNormal1.20-4.00 [facility] HospitalComment on above:Performed By: #### [id number] ####[facility] ([facility])[address] [place] [address]Frvfztqwbbu/100 WBC (Bld)17.9 %Low20.0-45.0UnKettering Memorial HospitalComment on above: Performed By: #### [id number] ####[facility] ([facility])[address] [place] [address]PMA (RBC) [Entitic mass]29.2 ffCgiioe22.0-33.0UnKettering Memorial HospitalComment on above:Performed By: #### [id number] ####[facility] ([facility])[address] [place], [place] [address]CUL (RBC) [Entitic vol] 93.9 yCQslxho20.0-98.0UnKettering Memorial HospitalComment on above: Performed By: #### [id number] ####[facility] ([facility])[address] [place], [place] [address]Qwrfdmljt (Bld) [#/Vol]1.05 10*3/uLHigh0.10-1.00UnKettering Memorial HospitalComment on above:Performed By: #### [id number] ####[facility] ([facility])[address] [facility] [address]Ynnvnyaog/100 WBC (Bld) 11.4 %Normal5.0-12.0UnKettering Memorial HospitalComment on above: Performed By: #### [id number] ####[facility] ([facility])[address] [facility] [address]Wegfuwgngha (Bld) [#/Vol]5.82 10*3/uLNormal1.60-7.60 [facility] HospitalComment on above:Performed By: #### [id number] ####[facility] ([facility])[address] [place] [address]Oarsgxrweeq/100 WBC (Bld)63.1 %Hsrpqt34.0-72.0UnKettering Memorial HospitalComment on above:Performed By: #### [id number] ####[facility] ([facility])[address] [address]TTUT (PER 100 WBCS) BY AUTOMATED COUNT0.0 %Reylmj3UbjkchzwfvKettering Memorial HospitalComment on above:Performed By: #### [id number] ####[facility] ([facility])[address] [address]OSTXSXCKM (10*3/UL) IN BLOOD AUTOMATED [id number] 10*3/bWBmvidi883-811SlkynfasqmKettering Memorial Hospital Comment on above:Performed By: #### [id number] ####[facility] ([facility])[address] [place] [address]STC (Bld) [#/Vol]5.42 10*6/uLNormal4.20-5.70 [facility] HospitalComment on above:Performed By: #### [id number] ####[facility] ([facility])[address] [address]RFE (Bld) [#/Vol]9.21 10*3/uLNormal4.00-10.60UnKettering Memorial HospitalComment on above:Performed By: #### [id number] ####[facility] ([facility])[address] [address]QJLDTYOil 43-86-53[address]POMWIGZSdeyqoHagebysdvj of [facility] Medical CenterMAGNESIUMon 05-38-1910Krmmhrzmt [Mass/Vol]1.7 mg/dLLow1.9-2.7UnKettering Memorial HospitalComment on above:Performed By: #### [id number] ####[facility] ([facility])[address] [place], [place] [address]SKGRTHDTws 08-30-2024 NURSNOTENormalUniversity Grant HospitalPOCT GLUCOSE METER UNSOLICITED RESULTSon 71-34-7827Mpvcajz [Mass/Vol]294 mg/aJCqhc27-146ZlrgapnrcfKettering Memorial HospitalComment on above:Order Comment: Waived Testing in the ED is performed under the ED CLIA certificate #[id number].Result Comment: [email or web address] Value NotedPerformed By: #### [id number] ####[facility] ([facility])[address] [place], [place] [address]Tlamggk [Mass/Vol]162 mg/vPQdqu93-683 [facility] HospitalComment on above:Order Comment: Waived Testing in the ED is performed under the ED CLIA certificate #[id number].Result Comment: [email or web address] By: #### [id number] ####[facility] ([facility])[address] [place], [place] [address]Fflwszw [Mass/Vol]193 mg/pHTimi36-599QyvhzrvoxtAultman Orrville HospitalComment on above:Order Comment: Waived Testing in the ED is performed under the ED CLIA certificate #[id number].Result Comment: [email or web address] Performed By: #### [id number] ####[facility] ([facility])[address] [place], [place] [address]Vvnspqg [Mass/Vol]235 mg/oENnim79-772AdhpqqjznuAultman Orrville HospitalComment on above:Order Comment: Waived Testing in the ED is performed under the ED CLIA certificate #[id number].Result Comment: [email or web address] Performed By: #### [id number] ####[facility] ([facility])[address] [place], [place] [address]Vqucyid [Mass/Vol]209 mg/eBGvxv94-194UcsizlpjdrKettering Memorial HospitalComment on above:Order Comment: Waived Testing in the ED is performed under the ED CLIA certificate #[id number].Result Comment: [email or web address] Performed By: #### [id number] ####[facility] ([facility])[address] [place], [place] [address]YXCCV METABOLIC PANELon 57-98-7950Lfgwa gap [Moles/Vol]7 mmol/LNormal7-20UnKettering Memorial HospitalComment on above:Performed By: #### [id number] ####[facility] ([facility])[address] [place] [address] Calcium [Mass/Vol]10.5 mg/dLHigh8.6-10.3UnKettering Memorial Hospital Comment on above:Performed By: #### [id number] ####[facility] ([facility])[address] [place], [place] [address]Parbdxje [Moles/Vol]93 mmol/BPma91-921OcelyvwssdKettering Memorial HospitalComment on above:Performed By: #### [id number] ####[facility] ([facility])[address] [place] [address]VG0 [Moles/Vol]38 mmol/L Eksx24-89ClmqtxwvehKettering Memorial HospitalComment on above:Performed By: #### [id number] ####[facility] ([facility])[address] [place], [place] [address]Fuzsulqozb [Mass/Vol]0.96 mg/dLNormal0.70-1.30UnKettering Memorial HospitalComment on above:Performed By: #### [id number] ####[facility] ([facility])[address] [place], [place] [address]IPGEDPJVXJ FILTRATION RATE ML/MIN/1.73 SQ M.HWBYYJTWE47.7 mL/min/1.73m*2Normal>60.0UnKettering Memorial HospitalComment on above: Result Comment: [facility]???s estimated glomerular filtration rate (eGFR) will [...] potential consequences that do not disproportionately affect anyone group of individuals.Performed By: #### [id number] ####[facility] ([facility])[address] [place] [address]Eigzqoh [Mass/Vol]182 mg/kJOzzb62-098YivpkfusjgKettering Memorial HospitalComment on above:Performed By: #### [id number] ####[facility] ([facility])[address] [place] [address]Budkdlfac [Moles/Vol]4.1 mmol/L Normal3.5-5.1UnKettering Memorial HospitalComment on above:Performed By: #### [id number] ####[facility] ([facility])[address] [place] [address] Sodium [Moles/Vol]134 mmol/JTrs172-787SeedkxurdhKettering Memorial HospitalComment on above:Performed By: #### [id number] ####[facility] ([facility])[address] [place] [address]Msex nitrogen [Mass/Vol]23 mg/dLNormal7-25UnKettering Memorial HospitalComment on above:Performed By: #### [id number] ####[facility] ([facility])[address] [place] [address]RQRK NITROGEN/CREATININE (MASS RATIO) IN SER/PLAS24.0NormalUniversMedina HospitalComment on above: Performed By: #### [id number] ####[facility] ([facility])[address] [place] [address]OWU WITH AUTO DIFFERENTIALon 49-13-8048Dtqihxnac (Bld) [#/Vol]0.09 10*3/uLNormal0.00-0.20UnKettering Memorial HospitalComment on above: Performed By: #### [id number] ####[facility] ([facility])[address] [place] [address]Vbtvqhorc/100 WBC (Bld)1.0 %Normal0.0-1.0UnKettering Memorial HospitalComment on above:Performed By: #### [id number] ####[facility] ([facility])[address] [facility] [place] [address]Feagzepaezg (Bld) [#/Vol]0.48 10*3/uL Normal0.00-0.50UnKettering Memorial HospitalComment on above:Performed By: #### [id number] ####[facility] ([facility])[address] [place] [address] Eosinophils/100 WBC (Bld)5.3 %Normal0.0-6.0UnKettering Memorial Hospital Comment on above:Performed By: #### [id number] ####[facility] ([facility])[address] [facility], [place] [address]Kuuvaqavtjr distribution width (RBC) [Ratio]15.0 % Lpkqlj63.5-15.0UnKettering Memorial HospitalComment on above:Performed By: #### [id number] ####[facility] ([facility])[address] [address] ERYTHROCYTE MEAN CORPUSCULAR HEMOGLOBIN CONCENTRATION (G/DL) BY CDNMKFMXJ51.5 g/dLLow32.0-35.0UnKettering Memorial HospitalComment on above:Performed By: #### [id number] ####[facility] ([facility])[address] [place], [place] [address]Wjprvvrvfy (Bld) [Volume fraction]51.2 %Arwkpx02.0-55.0UnKettering Memorial HospitalComment on above:Performed By: #### [id number] ####[facility] ([facility])[address] [place], [place] [address]Wippqufzzp (Bld) [Mass/Vol]15.6 g/dL Gjlznc70.0-17.0UnKettering Memorial HospitalComment on above:Performed By: #### [id number] ####[facility] ([facility])[address] [address] Immature granulocytes (Bld) [#/Vol]0.07 10*3/uLNormal0.00-0.20UnKettering Memorial HospitalComment on above:Performed By: #### [id number] ####[facility] ([facility])[address] [place], [place] [address]Alzjngwe granulocytes/100 WBC (Bld)0.8 %Normal0.0-1.0UnKettering Memorial HospitalComment on above: Performed By: #### [id number] ####[facility] ([facility])[address] [place], [place] [address]Etuihonsuaf (Bld) [#/Vol]1.41 10*3/uLNormal1.20-4.00 [facility] HospitalComment on above:Performed By: #### [id number] ####[facility] ([facility])[address] [place], [place] [address]Rjigcvpbdmz/100 WBC (Bld)15.7 %Low20.0-45.0UnKettering Memorial HospitalComment on above: Performed By: #### [id number] ####[facility] ([facility])[address] [place], [place] [address]JYB (RBC) [Entitic mass]29.0 ekZohnuw41.0-33.0UnKettering Memorial HospitalComment on above:Performed By: #### [id number] ####[facility] ([facility])[address] [place], [place] [address]YRH (RBC) [Entitic vol] 95.2 zDAllhrz84.0-98.0UnKettering Memorial HospitalComment on above: Performed By: #### [id number] ####[facility] ([facility])[address] [place], [place] [address]Mqrzihdka (Bld) [#/Vol]0.82 10*3/uLNormal0.10-1.00UnKettering Memorial HospitalComment on above:Performed By: #### [id number] ####[facility] ([facility])[address] [place], [place] [address]Ifeifzvdu/100 WBC (Bld) 9.1 %Normal5.0-12.0UnKettering Memorial HospitalComment on above:Performed By: #### [id number] ####[facility] ([facility])[address] [place] [address]Aezyhspoorn (Bld) [#/Vol]6.11 10*3/uLNormal1.60-7.60UnKettering Memorial HospitalComment on above:Performed By: #### [id number] ####[facility] ([facility])[address] [place] [address]Fjehbzostjc/100 WBC (Bld)68.1 %Normal 40.0-72.0UnKettering Memorial HospitalComment on above:Performed By: #### [id number] ####[facility] ([facility])[address] [place] [address]LDML (PER 100 WBCS) BY AUTOMATED COUNT0.0 %Avyoqk4ShupvbvgdxKettering Memorial Hospital Comment on above:Performed By: #### [id number] ####[facility] ([facility])[address] [place] [address]VSUFZGQWR (10*3/UL) IN BLOOD AUTOMATED [id number] 10*3/nXEfawig585-367EmojzeqclaKettering Memorial HospitalComment on above: Performed By: #### [id number] ####[facility] ([facility])[address] [place] [address]FKU (Bld) [#/Vol]5.38 10*6/uLNormal4.20-5.70UnKettering Memorial HospitalComment on above:Performed By: #### [id number] ####[facility] ([facility])[address] [place] [address]SZE (Bld) [#/Vol]8.98 10*3/uLNormal4.00-10.60UnKettering Memorial HospitalComment on above: Performed By: #### [id number] ####[facility] ([facility])[address] [place] [address]XAOIXWZOXpb 49-50-6332Mtklesfju [Mass/Vol]1.7 mg/dLLow1.9-2.7 [facility] HospitalComment on above:Performed By: #### [id number] ####[facility] ([facility])[address] [place], [place] [address]ZNTJ GLUCOSE METER UNSOLICITED RESULTSon 75-36-7511Ayzokwm [Mass/Vol]284 mg/hWAvda97-193 [facility] HospitalComment on above:Order Comment: Waived Testing in the ED is performed under the ED CLIA certificate #[id number].Result Comment: [email or web address] By: #### [id number] ####[facility] ([facility])[address] [place], [place] [address]Zyolqpu [Mass/Vol]259 mg/jOChhp49-711PuhqmbbnatKettering Memorial HospitalComment on above:Order Comment: Waived Testing in the ED is performed under the ED CLIA certificate #[id number].Result Comment: Performed By: #### [id number] ####[facility] ([facility])[address] [place], [place] [address]Sxdcsfb [Mass/Vol]301 mg/fAYrvm64-460IdfrbvepmjKettering Memorial HospitalComment on above:Order Comment: Waived Testing in the ED is performed under the ED CLIA certificate #[id number].Result Comment: [email or web address] Performed By: #### [id number] ####[facility] ([facility])[address] [place], [place] [address]Moefdbh [Mass/Vol]166 mg/nDJemn28-018VxyyljgypxKettering Memorial HospitalComment on above:Order Comment: Waived Testing in the ED is performed under the ED CLIA certificate #[id number].Result Comment: [email or web address] Performed By: #### [id number] ####[facility] ([facility])[address] [place], [place] [address]JYXEW METABOLIC PANELon 55-35-2987Ahrpk gap [Moles/Vol]8 mmol/LNormal7-20UnKettering Memorial HospitalComment on above:Performed By: #### [id number] ####[facility] ([facility])[address] [place] [address] Calcium [Mass/Vol]9.8 mg/dLNormal8.6-10.3UnKettering Memorial Hospital Comment on above:Performed By: #### [id number] ####[facility] LAB ([facility])[address] [address]Siaxttmt [Moles/Vol]96 mmol/UOpr25-415ShyqjsqygxKettering Memorial HospitalComment on above:Performed By: #### [id number] ####[facility] ([facility])[address] [place] [address]OI2 [Moles/Vol]37 mmol/L Tfks30-79RbxcoiyzusKettering Memorial HospitalComment on above:Performed By: #### [id number] ####[facility] ([facility])[address] [place] [address]Oqfhtdtfyg [Mass/Vol]0.82 mg/dLNormal0.70-1.30UnKettering Memorial HospitalComment on above:Performed By: #### [id number] ####[facility] ([facility])[address] [place] [address]FPCNULKIXB FILTRATION RATE ML/MIN/1.73 SQ M.HSXEKZRHD39.5 mL/min/1.73m*2Normal>60.0UnKettering Memorial HospitalComment on above: Result Comment: The [facility]???s estimated glomerular filtration rate (eGFR) will [...] potential consequences that do not disproportionately affect anyone group of individuals.Performed By: #### [id number] ####[facility] ([facility])[address] [place] [address]Ryvidtx [Mass/Vol]183 mg/lWZcbq45-142NqkllytfnnKettering Memorial HospitalComment on above:Performed By: #### [id number] ####[facility] ([facility])[address] [place] [address]Iuntfhspc [Moles/Vol]3.7 mmol/L Normal3.5-5.1UnKettering Memorial HospitalComment on above:Performed By: #### [id number] ####[facility] ([facility])[address] [place] [address] Sodium [Moles/Vol]137 mmol/LYubhhk500-987HcuxjclybhKettering Memorial Hospital Comment on above:Performed By: #### [id number] ####[facility] ([facility])[address] [place] [address]Owzl nitrogen [Mass/Vol]17 mg/dLNormal7-25 [facility] HospitalComment on above:Performed By: #### [id number] ####[facility] ([facility])[address] [place] [address]EYLZ NITROGEN/CREATININE (MASS RATIO) IN SER/PLAS20.7NormalUniversMedina HospitalComment on above:Performed By: #### [id number] ####[facility] ([facility])[address] [place], [place] [address]DYP WITH AUTO DIFFERENTIALon 29-81-0122Vnizbmxwj (Bld) [#/Vol]0.09 10*3/uLNormal0.00-0.20UnKettering Memorial HospitalComment on above:Performed By: #### [id number] ####[facility] ([facility])[address] [place], [place] [address]Xsvpfzkrh/100 WBC (Bld)0.9 %Normal 0.0-1.0UnKettering Memorial HospitalComment on above:Performed By: #### [id number] ####[facility] ([facility])[address] [place] [address] Eosinophils (Bld) [#/Vol]0.40 10*3/uLNormal0.00-0.50UnKettering Memorial HospitalComment on above:Performed By: #### [id number] ####[facility] ([facility])[address] [place] [address]Ftyldzwbvol/100 WBC (Bld)4.2 %Normal 0.0-6.0UnKettering Memorial HospitalComment on above:Performed By: #### [id number] ####[facility] ([facility])[address] [place] [address] Erythrocyte distribution width (RBC) [Ratio]14.8 %Duijda21.5-15.0UnKettering Memorial HospitalComment on above:Performed By: #### [id number] ####[facility] ([facility])[address] [place], [place] [address]SWJJJVPKHXI MEAN CORPUSCULAR HEMOGLOBIN CONCENTRATION (G/DL) BY BHYEGFXNI29.3 g/dLLow32.0-35.0 [facility] HospitalComment on above:Performed By: #### [id number] ####[facility] ([facility])[address] [place], [place] [address]Rrwlurgadl (Bld) [Volume fraction]50.9 %Uettxo71.0-55.0UnKettering Memorial Hospital Comment on above:Performed By: #### [id number] ####[facility] ([facility])[address] [place], [place] [address]Elesnkhwwe (Bld) [Mass/Vol]15.4 g/dNZmijak92.0-17.0 [facility] HospitalComment on above:Performed By: #### [id number] ####[facility] ([facility])[address] [place], [place] [address]Ydwtrzmf granulocytes (Bld) [#/Vol]0.06 10*3/uLNormal0.00-0.20UnKettering Memorial HospitalComment on above:Performed By: #### [id number] ####[facility] ([facility])[address] [place], [place] [address]Tuqselea granulocytes/100 WBC (Bld)0.6 %Normal0.0-1.0UnKettering Memorial HospitalComment on above:Performed By: #### [id number] ####[facility] ([facility])[address] [place] [place] [address] Lymphocytes (Bld) [#/Vol]1.68 10*3/uLNormal1.20-4.00UnKettering Memorial HospitalComment on above:Performed By: #### [id number] ####[facility] ([facility])[address] [place], [place] [address]Htrsdojxluu/100 WBC (Bld)17.6 %Low 20.0-45.0UnKettering Memorial HospitalComment on above:Performed By: #### [id number] ####[facility] ([facility])[address] [place], [place] [address]TIX (RBC) [Entitic mass]29.2 gnAgoads33.0-33.0UnKettering Memorial Hospital Comment on above:Performed By: #### [id number] ####[facility] ([facility])[address] [place], [place] [address]TVZ (RBC) [Entitic vol]96.6 xEYosiex48.0-98.0 [facility] HospitalComment on above:Performed By: #### [id number] ####[facility] ([facility])[address] [place], [place] [address]Drfzmhrxg (Bld) [#/Vol]0.99 10*3/uLNormal0.10-1.00UnKettering Memorial HospitalComment on above:Performed By: #### [id number] ####[facility] ([facility])[address] [place], [place] [address]Tsjfwrkmn/100 WBC (Bld)10.4 %Normal5.0-12.0UnKettering Memorial HospitalComment on above:Performed By: #### [id number] ####[facility] ([facility])[address] [place], [place] [address]Bnrtekyxjyj (Bld) [#/Vol] 6.33 10*3/uLNormal1.60-7.60UnKettering Memorial HospitalComment on above: Performed By: #### [id number] ####[facility] ([facility])[address] [address]Plcxckuyzlm/100 WBC (Bld)66.3 %Pdjlqz53.0-72.0UnKettering Memorial HospitalComment on above:Performed By: #### [id number] ####[facility] ([facility])[address] [address]SBVP (PER 100 WBCS) BY AUTOMATED COUNT0.0 %Wlhwfr7AselcopgaaKettering Memorial HospitalComment on above: Performed By: #### [id number] ####[facility] ([facility])[address] [place] [address]YDYITMTGC (10*3/UL) IN BLOOD AUTOMATED HBXNX981 10*3/uLNormal 150-400UnKettering Memorial HospitalComment on above:Performed By: #### [id number] ####[facility] ([facility])[address] [address]TEM (Bld) [#/Vol]5.27 10*6/uLNormal4.20-5.70UnKettering Memorial Hospital Comment on above:Performed By: #### [id number] ####[facility] ([facility])[address] [address]GYH (Bld) [#/Vol]9.55 10*3/uLNormal4.00-10.60 [facility] HospitalComment on above:Performed By: #### [id number] ####[facility] ([facility])[address] [address]SYDREGWSQqz 41-31-3455Jncuicsns [Mass/Vol]1.8 mg/dLLow1.9-2.7UnKettering Memorial HospitalComment on above:Performed By: #### [id number] ####[facility] ([facility])[address] [address]BVDCDIQWvn 28-71-8655ZTZWQDDPAxycyg [facility] HospitalPOCT GLUCOSE METER UNSOLICITED RESULTSon 46-28-7518Znuafnt [Mass/Vol]258 mg/uCCnkb49-663PzxodjmrviKettering Memorial HospitalComment on above:Order Comment: Waived Testing in the ED is performed under the ED CLIA certificate #[id number].Result Comment: [id number] By: #### [id number] ####[facility] ([facility])[address] [place] [address] Glucose [Mass/Vol]177 mg/yFXxfe13-650MzeuptvjtdKettering Memorial HospitalComment on above:Order Comment: Waived Testing in the ED is performed under the ED CLIA certificate #[id number].Result Comment: [id number] By: #### [id number] ####[facility] ([facility])[address] [place], [place] [address]Vaymyxx [Mass/Vol]242 mg/vAMdjf83-857ElznhrbkpjKettering Memorial HospitalComment on above:Order Comment: Waived Testing in the ED is performed under the ED CLIA certificate #[id number].Result Comment: qtyryi50Pfdehglzz By: #### [id number] ####[facility] ([facility])[address] [place], [place] [address]Donomuo [Mass/Vol]200 mg/oOYeof11-527XkeufhyudfKettering Memorial HospitalComment on above:Order Comment: Waived Testing in the ED is performed under the ED CLIA certificate #[id number].Result Comment: srpdnz92Nhaarxqmk By: #### [id number] ####[facility] (BE[facility])[address] [place], [place] [address]51lf 08-27-2024 30NormalUniversMedina HospitalBASIC METABOLIC PANELon 08-27-2024 Anion gap [Moles/Vol]6 mmol/LLow7-20UnKettering Memorial HospitalComment on above:Performed By: #### [id number] ####[facility] ([facility]ER)[address] [place], [place] [address]Uujastt [Mass/Vol]9.8 mg/dLNormal8.6-10.3UnKettering Memorial HospitalComment on above:Performed By: #### [id number] ####[facility] ([facility])[address] [place] [address]Qgctwrta [Moles/Vol]97 mmol/XVkt37-855 [facility] HospitalComment on above:Performed By: #### [id number] ####[facility] ([facility])[address] [place] [address]BS8 [Moles/Vol] 41 mmol/LCritically lzhp72-31GdfdiisobgKettering Memorial HospitalComment on above:Performed By: #### [id number] ####[facility] ([facility])[address] [place] [address]Bjkvxulhdy [Mass/Vol]0.81 mg/dLNormal0.70-1.30UnKettering Memorial HospitalComment on above:Performed By: #### [id number] ####[facility] ([facility])[address] [place], [place] [address]HSMBFYYNIQ FILTRATION RATE ML/MIN/1.73 SQ M.YCZPCZJCL61.8 mL/min/1.73m*2Normal>60.0UnKettering Memorial HospitalComment on above:Result Comment: The [facility]???s estimated glomerular filtration rate (eGFR) will [...] potential consequences that do not disproportionately affect anyone group of individuals.Performed By: #### [id number] ####[facility] ([facility])[address] [place] [address]Sianynq [Mass/Vol]187 mg/dNEtbe01-420XmjuipwhpyKettering Memorial HospitalComment on above:Performed By: #### [id number] ####[facility] ([facility])[address] [place], [place] [address]Prqdwlbhy [Moles/Vol]3.5 mmol/LNormal3.5-5.1UnKettering Memorial HospitalComment on above:Performed By: #### [id number] ####[facility] ([facility])[address] [place] [address]Nishgf [Moles/Vol]140 mmol/L Cctxyi247-727TasvtwetjsKettering Memorial HospitalComment on above:Performed By: #### [id number] ####[facility] ([facility])[address] [place] [address]Cqex nitrogen [Mass/Vol]16 mg/dLNormal7-25UnKettering Memorial HospitalComment on above:Performed By: #### [id number] ####[facility] ([facility])[address] [place] [address]IQYF NITROGEN/CREATININE (MASS RATIO) IN SER/PLAS19.8Normal [facility] HospitalComment on above:Performed By: #### [id number] ####[facility] ([facility])[address] [place] [address]QMR WITH AUTO DIFFERENTIALon 13-84-1116Yydynxpde (Bld) [#/Vol]0.06 10*3/uLNormal0.00-0.20 [facility] HospitalComment on above:Performed By: #### [id number] ####[facility] ([facility])[address] [place] [address]Wlhfabmpl/100 WBC (Bld)0.7 %Normal0.0-1.0UnKettering Memorial HospitalComment on above: Performed By: #### [id number] ####[facility] ([facility])[address] [place] [address]Uextuydiebk (Bld) [#/Vol]0.38 10*3/uLNormal0.00-0.50 [facility] HospitalComment on above:Performed By: #### [id number] ####[facility] ([facility])[address] [place] [address]Stowgiecjgq/100 WBC (Bld)4.7 %Normal0.0-6.0UnKettering Memorial HospitalComment on above: Performed By: #### [id number] ####[facility] ([facility])[address] [place], [place] [address]Grfmydgoxhk distribution width (RBC) [Ratio]14.6 %Normal 11.5-15.0UnKettering Memorial HospitalComment on above:Performed By: #### [id number] ####[facility] ([facility])[address] [place] [address] ERYTHROCYTE MEAN CORPUSCULAR HEMOGLOBIN CONCENTRATION (G/DL) BY OJAIMEMES39.7 g/dLLow32.0-35.0UnKettering Memorial HospitalComment on above:Performed By: #### [id number] ####[facility] ([facility])[address] [place], [place] [address]Znkdnxbntb (Bld) [Volume fraction]49.5 %Nafsre63.0-55.0UnKettering Memorial HospitalComment on above:Performed By: #### [id number] ####[facility] ([facility])[address] [place], [place] [address]Evsruisbqq (Bld) [Mass/Vol]14.7 g/dL Cwrvtf29.0-17.0UnKettering Memorial HospitalComment on above:Performed By: #### [id number] ####[facility] ([facility])[address] [place] [address] Immature granulocytes (Bld) [#/Vol]0.04 10*3/uLNormal0.00-0.20UnKettering Memorial HospitalComment on above:Performed By: #### [id number] ####[facility] ([facility])[address] [place], [place] [address]Hunpnlux granulocytes/100 WBC (Bld)0.5 %Normal0.0-1.0UnKettering Memorial HospitalComment on above: Performed By: #### [id number] ####[facility] ([facility])[address] [place], [place] [address]Joeywoklxxh (Bld) [#/Vol]1.42 10*3/uLNormal1.20-4.00 [facility] HospitalComment on above:Performed By: #### [id number] ####[facility] ([facility])[address] [place] [address]Ptgyivtrwyv/100 WBC (Bld)17.7 %Low20.0-45.0UnKettering Memorial HospitalComment on above: Performed By: #### [id number] ####[facility] ([facility])[address] [place] [address]QNE (RBC) [Entitic mass]28.9 plXtiebm84.0-33.0UnKettering Memorial HospitalComment on above:Performed By: #### [id number] ####[facility] ([facility])[address] [place], [place] [address]WQD (RBC) [Entitic vol] 97.4 tBFodgsj38.0-98.0UnKettering Memorial HospitalComment on above: Performed By: #### [id number] ####[facility] ([facility])[address] [place], [place] [address]Tkcgdarmk (Bld) [#/Vol]0.92 10*3/uLNormal0.10-1.00UnKettering Memorial HospitalComment on above:Performed By: #### [id number] ####[facility] ([facility])[address] [place], [place] [address]Xlckomsgh/100 WBC (Bld) 11.5 %Normal5.0-12.0UnKettering Memorial HospitalComment on above: Performed By: #### [id number] ####[facility] (BE[facility]ER)[address] [place], [place] [address]Uqomkxzbmjl (Bld) [#/Vol]5.19 10*3/uLNormal1.60-7.60 [facility] HospitalComment on above:Performed By: #### [id number] ####[facility] (BE[facility]ER)[address] [place], [place] [address]Avehzrxubdl/100 WBC (Bld)64.9 %Fapcvf38.0-72.0UnKettering Memorial HospitalComment on above:Performed By: #### [id number] ####[facility] ([facility])[address] [place] [address]BBHT (PER 100 WBCS) BY AUTOMATED COUNT0.0 %Fhfhhf7AftnrhpazrKettering Memorial HospitalComment on above:Performed By: #### [id number] ####[facility] ([facility])[address] [place] [address]ZBULZDLTN (10*3/UL) IN BLOOD AUTOMATED VXQUF482 10*3/uHHnzdav691-662RtaknntwjnKettering Memorial Hospital Comment on above:Performed By: #### [id number] ####[facility] ([facility])[address] [place] [address]LOC (Bld) [#/Vol]5.08 10*6/uLNormal4.20-5.70 [facility] HospitalComment on above:Performed By: #### [id number] ####[facility] ([facility])[address] [place] [address]XQN (Bld) [#/Vol]8.01 10*3/uLNormal4.00-10.60UnKettering Memorial HospitalComment on above:Performed By: #### [id number] ####[facility] ([facility])[address] [place] [address]COYAQRMRTxp 90-26-1199Xpfwvybos [Mass/Vol]1.6 mg/dLLow1.9-2.7 [facility] HospitalComment on above:Performed By: #### [id number] ####[facility] ([facility])[address] [place] [address]IVEU GLUCOSE METER UNSOLICITED RESULTSon 50-66-9568Gwtyybb [Mass/Vol]144 mg/vPRdsw53-078 [facility] HospitalComment on above:Order Comment: Waived Testing in the ED is performed under the ED CLIA certificate #[id number].Result Comment: drockolPerformed By: #### [id number] ####[facility] ([facility])[address] [place], [place] [address]Dwietul [Mass/Vol]204 mg/kLSycj22-796CsjmnxhnjpKettering Memorial HospitalComment on above:Order Comment: Waived Testing in the ED is performed under the ED CLIA certificate #[id number].Result Comment: [email or web address] Performed By: #### [id number] ####[facility] (BE[facility]ER)[address] [place], [place] [address]Hlfyqnn [Mass/Vol]230 mg/fARbhm86-677IinhcaqslrKettering Memorial HospitalComment on above:Order Comment: Waived Testing in the ED is performed under the ED CLIA certificate #[id number].Result Comment: [id number] Performed By: #### [id number] ####[facility] ([facility])[address] [place], [place] [address]Rendmwg [Mass/Vol]174 mg/zNCmcf57-324WdiwhojkwsKettering Memorial HospitalComment on above:Order Comment: Waived Testing in the ED is performed under the ED CLIA certificate #[id number].Result Comment: [email or web address] Performed By: #### [id number] ####[facility] ([facility])[address] [place], [place] [address]VWOEB METABOLIC PANELon 43-56-8790Efqgk gap [Moles/Vol]9 mmol/LNormal7-20UnKettering Memorial HospitalComment on above:Performed By: #### [id number] ####[facility] (BEAKER)[address] [place] [address] Calcium [Mass/Vol]9.4 mg/dLNormal8.6-10.3UnKettering Memorial Hospital Comment on above:Performed By: #### [id number] ####[facility] (BE[facility]ER)[address] [place], [place] [address]Rrrwntjt [Moles/Vol]100 mmol/GTtcyeg90-845 [facility] HospitalComment on above:Performed By: #### [id number] ####[facility] ([facility])[address] [place], [place] [address]CK9 [Moles/Vol] 36 mmol/WSgiz27-43ZvytdgbspuKettering Memorial HospitalComment on above:Performed By: #### [id number] ####[facility] ([facility])[address] [place] [address] Creatinine [Mass/Vol]0.78 mg/dLNormal0.70-1.30UnKettering Memorial HospitalComment on above:Performed By: #### [id number] ####[facility] ([facility])[address] [place], [place] [address]DSELOCKGRR FILTRATION RATE ML/MIN/1.73 SQ M.GKXNSWMWY92.0 mL/min/1.73m*2Normal>60.0UnKettering Memorial Hospital Comment on above:Result Comment: The [facility]???s estimated glomerular filtration rate (eGFR) will no longer include consideration of race in its calculation. The [employer] Foundation???s eGFR Task Force developed new recommendations for the estimation of the glomerular filtration ra te in the [place] They recommend immediate implementation of the new equation refit without the race variable in all laboratories because the calculation does not include race. In addition to not including race in the calculation and reporting, it included diversity in its development, and has acceptable performance characteristics and potential consequences that do not disproportionately affect anyone group of individuals.Performed By: #### [id number] ####[facility] ([facility])[address] [place], [place] [address]Sdvatec [Mass/Vol]156 mg/vFMucb16-283TtdmlsoyuaKettering Memorial HospitalComment on above:Performed By: #### [id number] ####[facility] ([facility])[address] [place], [place] [address]Eillovfzk [Moles/Vol]3.5 mmol/LNormal3.5-5.1UnKettering Memorial HospitalComment on above:Performed By: #### [id number] ####[facility] ([facility])[address], [place] [address]Bedvtv [Moles/Vol]141 mmol/L Jjhafg931-303DukpfttofcKettering Memorial HospitalComment on above:Performed By: #### [id number] ####[facility] ([facility])[address] [place] [address]Wjxi nitrogen [Mass/Vol]17 mg/dLNormal7-25UnKettering Memorial HospitalComment on above:Performed By: #### [id number] ####[facility] ([facility])[address] [place] [address]XNPN NITROGEN/CREATININE (MASS RATIO) IN SER/PLAS21.8Normal [facility] HospitalComment on above:Performed By: #### [id number] ####[facility] ([facility])[address] [place] [address]LWM WITH AUTO DIFFERENTIALon 11-75-95[address]Mvdoaltnd (Bld) [#/Vol]0.06 10*3/uLNormal0.00-0.20 [facility] HospitalComment on above:Performed By: #### [id number] ####[facility] ([facility])[address] [place], [place] [address]Gucndxyuv/100 WBC (Bld)0.8 %Normal0.0-1.0UnKettering Memorial HospitalComment on above: Performed By: #### [id number] ####[facility] ([facility])[address] [place] [address]Kidextzenrl (Bld) [#/Vol]0.39 10*3/uLNormal0.00-0.50 [facility] HospitalComment on above:Performed By: #### [id number] ####[facility] ([facility])[address] [place] [address]Mpkncxlbwqm/100 WBC (Bld)5.4 %Normal0.0-6.0UnKettering Memorial HospitalComment on above: Performed By: #### [id number] ####[facility] ([facility])[address] [place], [place] [address]Icledsyzndc distribution width (RBC) [Ratio]14.7 %Normal 11.5-15.0UnKettering Memorial HospitalComment on above:Performed By: #### [id number] ####[facility] (BEAKER)[address] [place] [address] ERYTHROCYTE MEAN CORPUSCULAR HEMOGLOBIN CONCENTRATION (G/DL) BY SGXHCBRJN36.4 g/dLLow32.0-35.0UnKettering Memorial HospitalComment on above:Performed By: #### [id number] ####[facility] ([facility] [place], [place] [address]Galskrhisl (Bld) [Volume fraction]49.0 %Vjhlyv90.0-55.0UnKettering Memorial HospitalComment on above:Performed By: #### [id number] ####[facility] ([facility])[address] [place], [place] [address]Sqybloneva (Bld) [Mass/Vol]14.9 g/dL Slvhkp89.0-17.0UnKettering Memorial HospitalComment on above:Performed By: #### [id number] ####[facility] ([facility])[address] [place] [address] Immature granulocytes (Bld) [#/Vol]0.03 10*3/uLNormal0.00-0.20UnKettering Memorial HospitalComment on above:Performed By: #### [id number] ####[facility] ([facility])[address] [place], [place] [address]Xjjtodri granulocytes/100 WBC (Bld)0.4 %Normal0.0-1.0UnKettering Memorial HospitalComment on above: Performed By: #### [id number] ####[facility] ([facility])[address] [place], [place] [address]Wmpqopxztzi (Bld) [#/Vol]1.21 10*3/uLNormal1.20-4.00 [facility] HospitalComment on above:Performed By: #### [id number] ####[facility] ([facility])[address] [place], [place] [address]Aevktmwfasn/100 WBC (Bld)16.7 %Low20.0-45.0UnKettering Memorial HospitalComment on above: Performed By: #### [id number] ####[facility] ([facility])[address] [place] [address]HNH (RBC) [Entitic mass]29.2 wnNwpgng19.0-33.0UnKettering Memorial HospitalComment on above:Performed By: #### [id number] ####[facility] ([facility])[address] [place], [place] [address]GWU (RBC) [Entitic vol] 96.1 kXFsvfsj59.0-98.0UnKettering Memorial HospitalComment on above: Performed By: #### [id number] ####[facility] ([facility])[address] [place], [place] [address]Smuundbvw (Bld) [#/Vol]0.86 10*3/uLNormal0.10-1.00UnKettering Memorial HospitalComment on above:Performed By: #### [id number] ####[facility] [facility] [place], [place] [address]Qknbwdbhf/100 WBC (Bld) 11.9 %Normal5.0-12.0UnKettering Memorial HospitalComment on above: Performed By: #### [id number] ####[facility] ([facility])[address] [place], [place] [address]Fxoswahzrmq (Bld) [#/Vol]4.70 10*3/uLNormal1.60-7.60 [facility] HospitalComment on above:Performed By: #### [id number] ####[facility] ([facility])[address] [place], [place] [address]Wyzfvngryjm/100 WBC (Bld)64.8 %Cdcpvu94.0-72.0UnKettering Memorial HospitalComment on above:Performed By: #### [id number] ####[facility] ([facility])[address] [place], [place] [address]CLLR (PER 100 WBCS) BY AUTOMATED COUNT0.0 %Dlziit6AdndcqqhabKettering Memorial HospitalComment on above:Performed By: #### [id number] ####[facility] ([facility])[address] [place] [address]IFTYLTNBY (10*3/UL) IN BLOOD AUTOMATED [id number] 10*3/hTKayshe483-322DgmrzomtfhKettering Memorial Hospital Comment on above:Performed By: #### [id number] ####[facility] ([facility])[address] [place] [address]OBH (Bld) [#/Vol]5.10 10*6/uLNormal4.20-5.70 [facility] HospitalComment on above:Performed By: #### [id number] ####[facility] ([facility])[address] [place] [address]CWW (Bld) [#/Vol]7.25 10*3/uLNormal4.00-10.60UnKettering Memorial HospitalComment on above:Performed By: #### [id number] ####[facility] ([facility])[address] [place] [address]KIHHMWIBToi 67-82-0116Xdqzccido [Mass/Vol]1.8 mg/dLLow1.9-2.7 [facility] HospitalComment on above:Performed By: #### [id number] ####[facility] ([facility])[address] [place] [address]XGDK GLUCOSE METER UNSOLICITED RESULTSon 21-36-3879Iesbxni [Mass/Vol]246 mg/kFSqpl52-520 [facility] HospitalComment on above:Order Comment: Waived Testing in the ED is performed under the ED CLIA certificate #[id number].Result Comment: [id number] By: #### [id number] ####[facility] ([facility])[address] [place] [address]Ndkaypu [Mass/Vol]204 mg/oDDvdy63-798 [facility] HospitalComment on above:Order Comment: Waived Testing in the ED is performed under the ED CLIA certificate #[id number].Result Comment: [id number] By: #### [id number] ####[facility] ([facility])[address] [place] [address]Ridslhu [Mass/Vol]219 mg/vLOjxb66-529NwzrrtnskiKettering Memorial HospitalComment on above:Order Comment: Waived Testing in the ED is performed under the ED CLIA certificate #[id number].Result Comment: [email or web address] Performed By: #### [id number] ####[facility] ([facility])[address] [place] [address]Uibxgam [Mass/Vol]163 mg/tFGvqz26-843LdzptuhkbhKettering Memorial HospitalComment on above:Order Comment: Waived Testing in the ED is performed under the ED CLIA certificate #[id number].Result Comment: [email or web address] Performed By: #### [id number] ####[facility] ([facility])[address] [place] [address]41jp 26-92-554032IrwccxUjxnfmgkls of [facility] BASIC METABOLIC PANELon 10-28-2679Hoibi gap [Moles/Vol]10 mmol/LNormal7-20 [facility] HospitalComment on above:Performed By: #### [id number] ####[facility] ([facility])[address] [place] [address]Utpxlqy [Mass/Vol]9.5 mg/dLNormal8.6-10.3UnKettering Memorial HospitalComment on above:Performed By: #### [id number] ####[facility] ([facility])[address] [place], [place] [address]Wnvuyqxb [Moles/Vol]97 mmol/WAgf71-299JkvlxsttgjKettering Memorial HospitalComment on above:Performed By: #### [id number] ####[facility] ([facility])[address] [place], [place] [address]VE8 [Moles/Vol]34 mmol/IVcix82-68 [facility] HospitalComment on above:Performed By: #### [id number] ####[facility] ([facility])[address] [place] [address]Neoaqpwowo [Mass/Vol]0.87 mg/dLNormal0.70-1.30UnKettering Memorial HospitalComment on above:Performed By: #### [id number] ####[facility] ([facility])[address] [address]PHAOEJOERX FILTRATION RATE ML/MIN/1.73 SQ M.NVXLAVMBV87.8 mL/min/1.73m*2Normal>60.0UnKettering Memorial HospitalComment on above: Result Comment: [facility]???s estimated glomerular filtration rate (eGFR) will [...] potential consequences that do not disproportionately affect anyone group of individuals.Performed By: #### [id number] ####[facility] ([facility])[address] [place] [address]Fbyivvs [Mass/Vol]178 mg/zBEtfy77-698LghkkxypogKettering Memorial HospitalComment on above:Performed By: #### [id number] ####[facility] ([facility])[address] [place] [address]Jbvqjqocz [Moles/Vol]3.5 mmol/L Normal3.5-5.1UnKettering Memorial HospitalComment on above:Performed By: #### [id number] ####[facility] ([facility])[address] [place] [address] Sodium [Moles/Vol]137 mmol/UUhznbw199-531WthkzpdzrbKettering Memorial Hospital Comment on above:Performed By: #### [id number] ####[facility] ([facility])[address] [place], [place] [address]Rjxp nitrogen [Mass/Vol]20 mg/dLNormal7-25 [facility] HospitalComment on above:Performed By: #### [id number] ####[facility] ([facility])[address] [place], [place] [address]ONQW NITROGEN/CREATININE (MASS RATIO) IN SER/PLAS23.0NormalUniversMedina HospitalComment on above:Performed By: #### [id number] ####[facility] ([facility])[address] [place] [address]PBO WITH AUTO DIFFERENTIALon 83-16-6486Kkexfoktj (Bld) [#/Vol]0.04 10*3/uLNormal0.00-0.20UnKettering Memorial HospitalComment on above:Performed By: #### [id number] ####[facility] ([facility])[address] [place], [place] [address]Dsenpkdcc/100 WBC (Bld)0.6 %Normal 0.0-1.0UnKettering Memorial HospitalComment on above:Performed By: #### [id number] ####[facility] ([facility])[address] [place] [address] Eosinophils (Bld) [#/Vol]0.22 10*3/uLNormal0.00-0.50UnKettering Memorial HospitalComment on above:Performed By: #### [id number] ####[facility] ([facility])[address] [place], [place] [address]Nwrcjwulrhw/100 WBC (Bld)3.1 %Normal 0.0-6.0UnKettering Memorial HospitalComment on above:Performed By: #### [id number] ####[facility] ([facility])[address] [place] [address] Erythrocyte distribution width (RBC) [Ratio]14.6 %Zmgmst45.5-15.0UnKettering Memorial HospitalComment on above:Performed By: #### [id number] ####[facility] ([facility])[address] [place], [place] [address]RDRLNWJDXYZ MEAN CORPUSCULAR HEMOGLOBIN CONCENTRATION (G/DL) BY KHUWCKPDG40.6 g/dLLow32.0-35.0 [facility] HospitalComment on above:Performed By: #### [id number] ####[facility] ([facility])[address] [place] [address]Ljduovbzrj (Bld) [Volume fraction]49.4 %Rkuzwj02.0-55.0UnK[facility]tering Memorial Hospital Comment on above:Performed By: #### [id number] ####[facility] ([facility])[address] [place], [place] [address]Sacnyrvszr (Bld) [Mass/Vol]15.1 g/pUUtruhb86.0-17.0 [facility] HospitalComment on above:Performed By: #### [id number] ####[facility] ([facility])[address] [place], [place] [address]Hhwjeysm granulocytes (Bld) [#/Vol]0.04 10*3/uLNormal0.00-0.20UnKettering Memorial HospitalComment on above:Performed By: #### [id number] ####[facility] ([facility])[address] [place] [address]Xporjxxu granulocytes/100 WBC (Bld)0.6 %Normal0.0-1.0UnKettering Memorial HospitalComment on above:Performed By: #### [id number] ####[facility] ([facility])[address] [place] [address] Lymphocytes (Bld) [#/Vol]1.08 10*3/uLLow1.20-4.00UnKettering Memorial HospitalComment on above:Performed By: #### [id number] ####[facility] ([facility])[address] [place], [place] [address]Veldzvrhtnx/100 WBC (Bld)15.1 %Low 20.0-45.0UnKettering Memorial HospitalComment on above:Performed By: #### [id number] ####[facility] ([facility])[address] [place], [place] [address]TOR (RBC) [Entitic mass]28.9 dtJhrjiq17.0-33.0UnKettering Memorial Hospital Comment on above:Performed By: #### [id number] ####[facility] ([facility])[address] [place] [address]MZF (RBC) [Entitic vol]94.6 dBHhmkxv67.0-98.0 [facility] HospitalComment on above:Performed By: #### [id number] ####[facility] ([facility])[address] [place], [place] [address]Hudltnojj (Bld) [#/Vol]0.94 10*3/uLNormal0.10-1.00UnKettering Memorial HospitalComment on above:Performed By: #### [id number] ####[facility] ([facility])[address] [place] [address]Vucbzmfir/100 WBC (Bld)13.1 %High5.0-12.0UnKettering Memorial HospitalComment on above:Performed By: #### [id number] ####[facility] ([facility])[address] [facility] [place] [address]Mcfompjsuia (Bld) [#/Vol]4.85 10*3/uL Normal1.60-7.60UnKettering Memorial HospitalComment on above:Performed By: #### [id number] ####[facility] ([facility])[address] [place] [address] Neutrophils/100 WBC (Bld)67.5 %Wzlsvq64.0-72.0UnKettering Memorial HospitalComment on above:Performed By: #### [id number] ####[facility] ([facility])[address] [place], [place] [address]RIDP (PER 100 WBCS) BY AUTOMATED COUNT 0.0 %Pmvhsy2ZtzlixyqiqKettering Memorial HospitalComment on above:Performed By: #### [id number] ####[facility] ([facility])[address] [place] [address] PLATELETS (10*3/UL) IN BLOOD AUTOMATED [id number] 10*3/dSWijdlu954-589GfthosrblbKettering Memorial HospitalComment on above:Performed By: #### [id number] ####[facility] ([facility])[address] [place] [address]JIK (Bld) [#/Vol]5.22 10*6/uLNormal4.20-5.70UnKettering Memorial HospitalComment on above: Performed By: #### [id number] ####[facility] ([facility])[address] [place] [address]KMM (Bld) [#/Vol]7.17 10*3/uLNormal4.00-10.60UnKettering Memorial HospitalComment on above:Performed By: #### [id number] ####[facility] ([facility])[address] [place] [address]LZMYEIXYEnt 08-25-2024 Magnesium [Mass/Vol]1.6 mg/dLLow1.9-2.7[facility] Comment on above:Performed By: #### [id number] ####[facility] ([facility])[address] [place] [address]XAHK GLUCOSE METER UNSOLICITED RESULTSon 08-25-2024 Glucose [Mass/Vol]154 mg/cNThmf85-979DdqymvtpyeKettering Memorial HospitalComment on above:Order Comment: Waived Testing in the ED is performed under the ED CLIA certificate #[id number].Result Comment: [id number] By: #### [id number] ####[facility] ([facility])[address] [place] [address]Iwvvmzk [Mass/Vol]196 mg/dYTyxg26-758ShkegbewwoKettering Memorial HospitalComment on above:Order Comment: Waived Testing in the ED is performed under the ED CLIA certificate #[id number].Result Comment: [id number] By: #### [id number] ####[facility] ([facility])[address] [place] [address]Glyrddj [Mass/Vol]313 mg/sCJwsv57-933FmepyjmurhKettering Memorial HospitalComment on above:Order Comment: Waived Testing in the ED is performed under the ED CLIA certificate #[id number].Result Comment: [id number] By: #### [id number] ####[facility] ([facility])[address] [place] [address]Ftabjxg [Mass/Vol]164 mg/xUZlsp57-533GsznzzpvlgKettering Memorial HospitalComment on above:Order Comment: Waived Testing in the ED is performed under the ED CLIA certificate #[id number].Result Comment: [id number] By: #### [id number] ####[facility] ([facility])[address] [place] [id number] 08-24-2024 30NormalUniTrumbull Memorial HospitalANTI-XA (HEPARIN LEVEL)on 08-24-2024 HEPARIN UNFRACTIONATED (U/ML) IN PPP BY CHROMOGENIC METHOD0.21 IU/mLLow0.3-0.7 [facility] HospitalComment on above:Result Comment: Rivaroxaban and Apixaban will interfere with the anti Xa assay used to monitor UFH and LMWH. Performed By: #### [id number] ####[facility] ([facility])[address] [place], [place] [address]B-IKJE NATRIURETIC PEPTIDEon 34-46-7393Btrqhwekwvo peptide B (Bld) [Mass/Vol]143 pg/mLHigh0-100UnKettering Memorial HospitalComment on above:Performed By: #### [id number] ####[facility] ([facility])[address] [place], [place] [address]VGRUT METABOLIC PANELon 23-95-9778Rvcdw gap [Moles/Vol]11 mmol/LNormal7-20UnKettering Memorial HospitalComment on above:Performed By: #### [id number] ####[facility] ([facility])[address] [place] [address] Calcium [Mass/Vol]9.7 mg/dLNormal8.6-10.3UnKettering Memorial Hospital Comment on above:Performed By: #### [id number] ####[facility] ([facility])[address] [place] [address]Utygsybt [Moles/Vol]98 mmol/NXoschk49-397OulsjmpelxKettering Memorial HospitalComment on above:Performed By: #### [id number] ####[facility] ([facility])[address] [place] [address]XS4 [Moles/Vol]33 mmol/L Hvtl95-76ZqrgxsnshfKettering Memorial HospitalComment on above:Performed By: #### [id number] ####[facility] ([facility])[address] [place] [address]Vuiklchpjv [Mass/Vol]0.93 mg/dLNormal0.70-1.30UnKettering Memorial HospitalComment on above:Performed By: #### [id number] ####[facility] ([facility])[address] [place] [address]VLJWUQTBBU FILTRATION RATE ML/MIN/1.73 SQ M.SVYLJDADU83.1 mL/min/1.73m*2Normal>60.0UnKettering Memorial HospitalComment on above: Result Comment: [facility]???s estimated glomerular filtration rate (eGFR) will [...] potential consequences that do not disproportionately affect anyone group of individuals.Performed By: #### [id number] ####[facility] ([facility])[address] [place] [address]Jvqlhxo [Mass/Vol]166 mg/oBJwiq38-224BctjpbkossKettering Memorial HospitalComment on above:Performed By: #### [id number] ####[facility] ([facility])[address] [place] [address]Ncoxxflhd [Moles/Vol]3.8 mmol/L Normal3.5-5.1UnKettering Memorial HospitalComment on above:Performed By: #### [id number] ####[facility] ([facility])[address] [place] [address] Sodium [Moles/Vol]138 mmol/TDezyty404-450KymdmyrjfaKettering Memorial Hospital Comment on above:Performed By: #### [id number] ####[facility] ([facility])[address] [place], [place] [address]Hhjf nitrogen [Mass/Vol]23 mg/dLNormal7-25 [facility] HospitalComment on above:Performed By: #### [id number] ####[facility] ([facility])[address] [place], [place] [address]WYDU NITROGEN/CREATININE (MASS RATIO) IN SER/PLAS24.7NormalUniversMedina HospitalComment on above:Performed By: #### [id number] ####[facility] ([facility])[address] [place], [place] [address]Byjhc gap [Moles/Vol]10 mmol/LNormal 7-20UnKettering Memorial HospitalComment on above:Performed By: #### [id number] ####[facility] ([facility])[address] [place], [place] [address]Rkholbp [Mass/Vol]9.4 mg/dLNormal8.6-10.3UnKettering Memorial HospitalComment on above:Performed By: #### [id number] ####[facility] ([facility])[address] [place], [place] [address]Lykmzreb [Moles/Vol]98 mmol/PRqpoxg79-493PchibspymeKettering Memorial HospitalComment on above:Performed By: #### [id number] ####[facility] ([facility])[address] [place], [place] [address]NN6 [Moles/Vol]33 mmol/UWzry49-39 [facility] HospitalComment on above:Performed By: #### [id number] ####[facility] ([facility])[address] [place], [place] [address]Cctzazbsnz [Mass/Vol]0.88 mg/dLNormal0.70-1.30UnKettering Memorial HospitalComment on above:Performed By: #### [id number] ####[facility] ([facility])[address] [place] [address]HGSKBOKHGL FILTRATION RATE ML/MIN/1.73 SQ M.ZRUNQDKVQ92.4 mL/min/1.73m*2Normal>60.0UnKettering Memorial HospitalComment on above: Result Comment: [facility]???s estimated glomerular filtration rate (eGFR) will [...] potential consequences that do not disproportionately affect anyone group of individuals.Performed By: #### [id number] ####[facility] ([facility])[address] [place], [place] [address]Noryxeb [Mass/Vol]132 mg/yQUmvd75-654WinqvfmvykKettering Memorial HospitalComment on above:Performed By: #### [id number] ####[facility] ([facility])[address] [facility], [place] [address]Tdzislplj [Moles/Vol]2.9 mmol/L Invalid Interpretation Code3.5-5.1UnKettering Memorial HospitalComment on above:Performed By: #### [id number] ####[facility] ([facility])[address] [place], [place] [address]Wgrius [Moles/Vol]138 mmol/FBclidq947-795DontqvjqdxKettering Memorial HospitalComment on above:Performed By: #### [id number] ####[facility] ([facility])[address] [place], [place] [address]Ngmp nitrogen [Mass/Vol]24 mg/dLNormal 7-25UnKettering Memorial HospitalComment on above:Performed By: #### [id number] ####[facility] ([facility])[address] [place] [address]NPTE NITROGEN/CREATININE (MASS RATIO) IN SER/PLAS27.3NormalUniversMedina HospitalComment on above:Performed By: #### [id number] ####[facility] ([facility])[address] [place] [address]ZRV WITH AUTO DIFFERENTIALon 22-84-0817Mzwrogpou (Bld) [#/Vol]0.06 10*3/uLNormal0.00-0.20UnKettering Memorial HospitalComment on above:Performed By: #### [id number] ####[facility] ([facility])[address] [facility] [place] [address]Nrkkzqowu/100 WBC (Bld)0.8 %Normal 0.0-1.0UnKettering Memorial HospitalComment on above:Performed By: #### [id number] ####[facility] ([facility])[address] [place] [address] Eosinophils (Bld) [#/Vol]0.46 10*3/uLNormal0.00-0.50UnKettering Memorial HospitalComment on above:Performed By: #### [id number] ####[facility] ([facility])[address] [place], [place] [address]Sfmacbidyhp/100 WBC (Bld)5.9 %Normal 0.0-6.0UnKettering Memorial HospitalComment on above:Performed By: #### [id number] ####[facility] ([facility])[address] [place] [address] Erythrocyte distribution width (RBC) [Ratio]14.7 %Zkbnlx01.5-15.0UnKettering Memorial HospitalComment on above:Performed By: #### [id number] ####[facility] ([facility])[address] [place], [place] [address]YMBPCVGIMJJ MEAN CORPUSCULAR HEMOGLOBIN CONCENTRATION (G/DL) BY MICGFBWLR38.3 g/dLLow32.0-35.0 [facility] HospitalComment on above:Performed By: #### [id number] ####[facility] ([facility])[address] [place], [place] [address]Wfughnvqpf (Bld) [Volume fraction]50.8 %Ctbtub58.0-55.0[facility] Comment on above:Performed By: #### [id number] ####[facility] ([facility])[address] [place] [address]Nhsrhxmtay (Bld) [Mass/Vol]15.9 g/nUPyghlz19.0-17.0 [facility] HospitalComment on above:Performed By: #### [id number] ####[facility] ([facility])[address] [place], [place] [address]Qsvhdcqs granulocytes (Bld) [#/Vol]0.04 10*3/uLNormal0.00-0.20UnKettering Memorial HospitalComment on above:Performed By: #### [id number] ####[facility] ([facility])[address] [place], [place] [address]Xrjrlurr granulocytes/100 WBC (Bld)0.5 %Normal0.0-1.0UnKettering Memorial HospitalComment on above:Performed By: #### [id number] ####[facility] ([facility])[address] [place] [address] Lymphocytes (Bld) [#/Vol]1.23 10*3/uLNormal1.20-4.00UnKettering Memorial HospitalComment on above:Performed By: #### [id number] ####[facility] ([facility])[address] [place], [place] [address]Jjourrwgctg/100 WBC (Bld)15.8 %Low 20.0-45.0UnKettering Memorial HospitalComment on above:Performed By: #### [id number] ####[facility] ([facility])[address] [place], [place] [address]IZX (RBC) [Entitic mass]29.1 sjIsteyx56.0-33.0UnKettering Memorial Hospital Comment on above:Performed By: #### [id number] ####[facility] ([facility])[address] [place] [address]WOU (RBC) [Entitic vol]92.9 cTEljree01.0-98.0 [facility] HospitalComment on above:Performed By: #### [id number] ####[facility] ([facility])[address] [place] [address]Gzfvbghhk (Bld) [#/Vol]0.96 10*3/uLNormal0.10-1.00UnKettering Memorial HospitalComment on above:Performed By: #### [id number] ####[facility] ([facility])[address] [place], [place] [address]Etuojxpkk/100 WBC (Bld)12.4 %High5.0-12.0UnKettering Memorial HospitalComment on above:Performed By: #### [id number] ####[facility] ([facility])[address] [facility], [place] [address]Ceoaqxiqbid (Bld) [#/Vol]5.02 10*3/uL Normal1.60-7.60UnKettering Memorial HospitalComment on above:Performed By: #### [id number] ####[facility] ([facility])[address] [place] [address] Neutrophils/100 WBC (Bld)64.6 %Uiklon95.0-72.0UnKettering Memorial HospitalComment on above:Performed By: #### [id number] ####[facility] ([facility])[address] [place], [place] [address]SSAR (PER 100 WBCS) BY AUTOMATED COUNT 0.0 %Jyndno4HvqrhahoxrKettering Memorial HospitalComment on above:Performed By: #### [id number] ####[facility] ([facility])[address] [place] [address] PLATELETS (10*3/UL) IN BLOOD AUTOMATED [id number] 10*3/nQAcpryk526-771RpfjnlyeyqKettering Memorial HospitalComment on above:Performed By: #### [id number] ####[facility] ([facility])[address] [place] [address]UMH (Bld) [#/Vol]5.47 10*6/uLNormal4.20-5.70UnKettering Memorial HospitalComment on above: Performed By: #### [id number] ####[facility] ([facility])[address] [place] [address]JKY (Bld) [#/Vol]7.77 10*3/uLNormal4.00-10.60UnKettering Memorial HospitalComment on above:Performed By: #### [id number] ####[facility] ([facility])[address] [place] [id number] 08-24-2024 CONSULTNormalUniversMedina HospitalCT HEAD WO IV CONTRASTon 21-20-2094QF HEAD WO IV CONTRASTInvalid Interpretation CodeUnKettering Memorial HospitalCTA CHEST W IV CONTRASTon [id number] CHEST W IV CONTRASTNormal [facility] HospitalMAGNESIUMon 86-49-2720Fppwnobbr [Mass/Vol]1.7 mg/dLLow1.9-2.7UnKettering Memorial HospitalComment on above:Performed By: #### [id number] ####[facility] ([facility])[address] [place] [address] Magnesium [Mass/Vol]1.4 mg/dLLow1.9-2.7UnKettering Memorial Hospital Comment on above:Performed By: #### [id number] ####[facility] ([facility])[address] [place] [id number] 72-50-1227KQVVYYPBWjllduDjevkkuiyh of [facility]edo Medical CenterNURSNOTENormalUniversMedina HospitalPHOSPHORUS on 29-20-7245Zhslpouzk [Mass/Vol]3.4 mg/dLNormal2.5-5.0UnKettering Memorial HospitalComment on above:Performed By: #### [id number] ####[facility] ([facility])[address] [place], [place] [address]BKSO GLUCOSE METER UNSOLICITED RESULTS on 10-88-8385Ihrenau [Mass/Vol]182 mg/fURxcd85-187DkasvfpombKettering Memorial HospitalComment on above:Order Comment: Waived Testing in the ED is performed under the ED CLIA certificate #[id number].Result Comment: drockolPerformed By: #### [id number] ####[facility] ([facility])[address] [place] [address] Glucose [Mass/Vol]166 mg/tIJgfm27-190AkzafjhvpbKettering Memorial HospitalComment on above:Order Comment: Waived Testing in the ED is performed under the ED CLIA certificate #[id number].Result Comment: sbelcadPerformed By: #### [id number] ####[facility] ([facility])[address] [place], [place] [address]Xeoegpx [Mass/Vol]150 mg/nZTjuv28-015KewkvwkywoKettering Memorial HospitalComment on above:Order Comment: Waived Testing in the ED is performed under the ED CLIA certificate #[id number].Result Comment: bescobePerformed By: #### [id number] ####[facility] ([facility])[address] [place], [place] [address]Yggccad [Mass/Vol]136 mg/qWXpsy54-685TeuqcqzycwKettering Memorial HospitalComment on above:Order Comment: Waived Testing in the ED is performed under the ED CLIA certificate #[id number].Result Comment: [email or web address] Value NotedPerformed By: #### [id number] ####[facility] ([facility])[address] [place] [address] BASIC METABOLIC PANELon 13-05-4014Xfsck gap [Moles/Vol]10 mmol/LNormal7-20 [facility] HospitalComment on above:Performed By: #### [id number] ####[facility] ([facility])[address] [place], [place] [address]Zudatji [Mass/Vol]9.8 mg/dLNormal8.6-10.3UnKettering Memorial HospitalComment on above:Performed By: #### [id number] ####[facility] ([facility])[address] [address]Larupplh [Moles/Vol]99 mmol/EEfdpta01-428YwastolaarKettering Memorial HospitalComment on above:Performed By: #### [id number] ####[facility] ([facility])[address] [place] [address]SR1 [Moles/Vol]33 mmol/HXmpn19-55 [facility] HospitalComment on above:Performed By: #### [id number] ####[facility] ([facility])[address] [address]Figxyxcssu [Mass/Vol]0.94 mg/dLNormal0.70-1.30UnKettering Memorial HospitalComment on above:Performed By: #### [id number] ####[facility] ([facility])[address] [place], [place] [address]MHRMJERYJB FILTRATION RATE ML/MIN/1.73 SQ M.FNTDEFKIG62.0 mL/min/1.73m*2Normal>60.0UnKettering Memorial HospitalComment on above: Result Comment: [facility]???s estimated glomerular filtration rate (eGFR) will [...] potential consequences that do not disproportionately affect anyone group of individuals.Performed By: #### [id number] ####[facility] ([facility])[address] [address]Ycadroz [Mass/Vol]274 mg/sEDhbr94-610ByneurwtxtKettering Memorial HospitalComment on above:Performed By: #### [id number] ####[facility] ([facility])[address] [place] [address]Vdgngahob [Moles/Vol]3.8 mmol/L Normal3.5-5.1UnKettering Memorial HospitalComment on above:Performed By: #### [id number] ####[facility] ([facility])[address] [place] [address] Sodium [Moles/Vol]138 mmol/AGjqknw961-660VpqnocccedKettering Memorial Hospital Comment on above:Performed By: #### [id number] ####[facility] ([facility])[address] [place], [place] [address]Rjka nitrogen [Mass/Vol]31 mg/dLHigh7-25UnKettering Memorial HospitalComment on above:Performed By: #### [id number] ####[facility] ([facility])[address], [place] [address]LRSS NITROGEN/CREATININE (MASS RATIO) IN SER/PLAS33.0NormalUniversMedina HospitalComment on above:Performed By: #### [id number] ####[facility] ([facility])[address] [place], [place] [address]RFD WITH AUTO DIFFERENTIALon 36-46-3284Eovsxnmin (Bld) [#/Vol]0.06 10*3/uLNormal0.00-0.20UnKettering Memorial HospitalComment on above:Performed By: #### [id number] ####[facility] ([facility])[address] [place], [place] [address]Fdodxsxhi/100 WBC (Bld)0.9 %Normal0.0-1.0UnKettering Memorial HospitalComment on above:Performed By: #### [id number] ####[facility] ([facility])[address] [place], [place] [address]Bzanxmpbjoi (Bld) [#/Vol]0.34 10*3/uL Normal0.00-0.50UnKettering Memorial HospitalComment on above:Performed By: #### [id number] ####[facility] ([facility])[address] [place] [address] Eosinophils/100 WBC (Bld)4.8 %Normal0.0-6.0UnKettering Memorial Hospital Comment on above:Performed By: #### [id number] ####[facility] ([facility])[address] [place], [place] [address]Jkeregrmnfl distribution width (RBC) [Ratio]14.7 % Xdnoat95.5-15.0UnKettering Memorial HospitalComment on above:Performed By: #### [id number] ####[facility] ([facility])[address] [place] [address] ERYTHROCYTE MEAN CORPUSCULAR HEMOGLOBIN CONCENTRATION (G/DL) BY JHXZKDZZE62.8 g/dLLow32.0-35.0UnKettering Memorial HospitalComment on above:Performed By: #### [id number] ####[facility] ([facility])[address] [place], [place] [address]Cguhgcsiul (Bld) [Volume fraction]52.5 %Njhxmg45.0-55.0UnKettering Memorial HospitalComment on above:Performed By: #### [id number] ####[facility] ([facility])[address] [place], [place] [address]Wbsgadkbdh (Bld) [Mass/Vol]16.7 g/dL Alahwk37.0-17.0UnKettering Memorial HospitalComment on above:Performed By: #### [id number] ####[facility] ([facility])[address] [place] [address] Immature granulocytes (Bld) [#/Vol]0.05 10*3/uLNormal0.00-0.20UnKettering Memorial HospitalComment on above:Performed By: #### [id number] ####[facility] ([facility])[address] [place], [place] [address]Rgyueoje granulocytes/100 WBC (Bld)0.7 %Normal0.0-1.0UnKettering Memorial HospitalComment on above: Performed By: #### [id number] ####[facility] ([facility])[address] [place], [place] [address]Dyhmdwygzri (Bld) [#/Vol]1.15 10*3/uLLow1.20-4.00UnKettering Memorial HospitalComment on above:Performed By: #### [id number] ####[facility] ([facility])[address] [place], [place] [address]Ekqmnnwuxpo/100 WBC (Bld) 16.4 %Low20.0-45.0UnKettering Memorial HospitalComment on above:Performed By: #### [id number] ####[facility] ([facility])[address] [place], [place] [address]SAW (RBC) [Entitic mass]29.0 xyLjaymw10.0-33.0UnKettering Memorial HospitalComment on above:Performed By: #### [id number] ####[facility] ([facility])[address] [place], [place] [address]NHG (RBC) [Entitic vol]91.1 fLNormal 82.0-98.0UnKettering Memorial HospitalComment on above:Performed By: #### [id number] ####[facility] ([facility])[address] [place] [address] Monocytes (Bld) [#/Vol]0.85 10*3/uLNormal0.10-1.00UnKettering Memorial HospitalComment on above:Performed By: #### [id number] ####[facility] ([facility])[address] [facility] [address]Zggzrtgjs/100 WBC (Bld)12.1 %High 5.0-12.0UnKettering Memorial HospitalComment on above:Performed By: #### [id number] ####[facility] ([facility])[address] [place] [address] Neutrophils (Bld) [#/Vol]4.58 10*3/uLNormal1.60-7.60UnKettering Memorial HospitalComment on above:Performed By: #### [id number] ####[facility] ([facility])[address] [facility] [place] [place], [place] [address]Xuqxjpexlmw/100 WBC (Bld)65.1 %Normal 40.0-72.0UnKettering Memorial HospitalComment on above:Performed By: #### [id number] ####[facility] ([facility])[address] [address]SGZU (PER 100 WBCS) BY AUTOMATED COUNT0.0 %Wemnim8JxmotewpmxKettering Memorial Hospital Comment on above:Performed By: #### [id number] ####[facility] ([facility])[address] [place] [address]VDXKJWDEQ (10*3/UL) IN BLOOD AUTOMATED CRABN449 10*3/aZHcioyr698-938EguknrvojwKettering Memorial HospitalComment on above: Performed By: #### [id number] ####[facility] ([facility])[address] [place] [address]DHP (Bld) [#/Vol]5.76 10*6/uLHigh4.20-5.70UnKettering Memorial HospitalComment on above:Performed By: #### [id number] ####[facility] ([facility])[address] [place] [address]SCG (Bld) [#/Vol]7.03 10*3/uLNormal4.00-10.60UnKettering Memorial HospitalComment on above: Performed By: #### [id number] ####[facility] ([facility])[address] [place] [address]KLYFSRYpl 08-26-2910OFZHYRHJrfizeWrevuujekw of [facility] Medical CenterLIPID PANELon 24-65-77[address]ELVB/HDL7.8 mg/dLNormalUniversMedina HospitalComment on above:Performed By: #### [id number] ####[facility] ([facility])[address] [place] [address]Zvjdqhvlhre [Mass/Vol]195 mg/dLNormal 120-200UnKettering Memorial HospitalComment on above:Performed By: #### [id number] ####[facility] ([facility])[address] [place] [address]Uxbawtwqa [Mass/Vol]177 mg/cSGgry01-214CknteeejhbKettering Memorial HospitalComment on above:Result Comment: TRIGLYCERIDE REFERENCE RANGE:20 YEARS AND OLDER CARDIOVASCULAR RISKLESS THAN 150 mg/dL LOW GZKO703 TO 199 mg/dL BORDERLINE JULZ517 mg/dL AND GREATER HIGH RISKPerformed By: #### [id number] ####[facility] ([facility])[address] [place] [address]Sxxmkrkuq [Mass/Vol]135 mg/dL Normal0-160UnKettering Memorial HospitalComment on above:Performed By: #### [id number] ####[facility] ([facility])[address] [place] [address] Magnesium [Mass/Vol]25 mg/nROaylhf82-43LpibxsgpvxKettering Memorial Hospital Comment on above:Performed By: #### [id number] ####[facility] ([facility])[address] [place], [place] [address]SVW HDL CHOL. (LDL+VLDL)170NormalUniversMedina HospitalComment on above:Performed By: #### [id number] ####[facility] ([facility])[address] [place], [place] [address]VSXIJ VLDL-C35 mg/dLNormal0-40 [facility] HospitalComment on above:Performed By: #### [id number] ####[facility] ([facility])[address] [place], [place] [address]RNLC GLUCOSE METER UNSOLICITED RESULTSon 22-96-7981Pjhpooi [Mass/Vol]169 mg/yVQzph26-025 [facility] HospitalComment on above:Order Comment: Waived Testing in the ED is performed under the ED CLIA certificate #[id number].Result Comment: agoettiPerformed By: #### [id number] ####[facility] ([facility])[address] [place], [place] [address]Dzoaebl [Mass/Vol]183 mg/iGZbqx95-400CamtnzehbyKettering Memorial HospitalComment on above:Order Comment: Waived Testing in the ED is performed under the ED CLIA certificate #[id number].Result Comment: ezabors2 Performed By: #### [id number] ####[facility] ([facility])[address] [place] [address]Juuszas [Mass/Vol]283 mg/rCQvic95-253TowbvnvmxqKettering Memorial HospitalComment on above:Order Comment: Waived Testing in the ED is performed under the ED CLIA certificate #[id number].Result Comment: ezabors2 Performed By: #### [id number] ####[facility] ([facility])[address] [place] [address]Orzexwy [Mass/Vol]258 mg/oDFrdz86-117XbsahdbtjeKettering Memorial HospitalComment on above:Order Comment: Waived Testing in the ED is performed under the ED CLIA certificate #[id number].Result Comment: tfulks2 Performed By: #### [id number] ####[facility] ([facility])[address] [place] [address]462sh 41-76-440541QnsyqzPxvingxtcs of [facility] ANTI-XA (HEPARIN LEVEL)on 84-44-5898OXQULUW UNFRACTIONATED (U/ML) IN PPP BY CHROMOGENIC METHOD0.31 IU/mLNormal0.3-0.7UnKettering Memorial Hospital Comment on above:Result Comment: Rivaroxaban and Apixaban will interfere with the anti Xa assay used to monitor UFH and LMWH.Performed By: #### [id number] ####[facility] ([facility])[address] [place], [place] [address]EZKQA METABOLIC PANELon 37-67-7866Bxzsw gap [Moles/Vol]10 mmol/LNormal7-20UnKettering Memorial HospitalComment on above:Performed By: #### [id number] ####[facility] ([facility])[address] [place] [address]Jlhzflo [Mass/Vol]9.6 mg/dLNormal 8.6-10.3UnKettering Memorial HospitalComment on above:Performed By: #### [id number] ####[facility] ([facility])[address] [place] [address]Gjukgabx [Moles/Vol]102 mmol/VYobzdt49-601RnjixvegbmKettering Memorial HospitalComment on above:Performed By: #### [id number] ####[facility] ([facility])[address] [place] [address]JV5 [Moles/Vol]32 mmol/ZPdww55-91JwibbzqjtyKettering Memorial HospitalComment on above:Performed By: #### [id number] ####[facility] ([facility])[address] [place] [address]Ufupmbpkqn [Mass/Vol]1.01 mg/dLNormal 0.70-1.30UnKettering Memorial HospitalComment on above:Performed By: #### [id number] ####[facility] ([facility])[address] [place] [address]XTNYNPBTUH FILTRATION RATE ML/MIN/1.73 SQ M.MWBBPGCKU76.5 mL/min/1.73m*2Normal>60.0 [facility] HospitalComment on above:Result Comment: [facility]???s estimated glomerular filtration rate (eG FR) will no longer include consideration of race [...] potential consequences that do not disproportionately affect anyone group of individuals. Performed By: #### [id number] ####[facility] ([facility])[address] [place] [address]Nzsafgs [Mass/Vol]263 mg/kLMdlz75-609AfrrrvgykgKettering Memorial HospitalComment on above:Performed By: #### [id number] ####[facility] ([facility])[address] [place] [address]Zwtrpqsup [Moles/Vol]3.7 mmol/LNormal 3.5-5.1UnKettering Memorial HospitalComment on above:Performed By: #### [id number] ####[facility] ([facility])[address] [place] [address]Hhvzva [Moles/Vol]140 mmol/EOcxoki314-245HlhsyndqidKettering Memorial HospitalComment on above:Performed By: #### [id number] ####[facility] ([facility])[address] [place] [address]Pvvy nitrogen [Mass/Vol]33 mg/dLHigh7-25UnKettering Memorial HospitalComment on above:Performed By: #### [id number] ####[facility] ([facility])[address] [place] [address]CTZF NITROGEN/CREATININE (MASS RATIO) IN SER/PLAS32.7NormalUniversMedina HospitalComment on above: Performed By: #### [id number] ####[facility] ([facility])[address] [place] [address]MLA WITH AUTO DIFFERENTIALon 55-00-0021Emcfaclqb (Bld) [#/Vol]0.05 10*3/uLNormal0.00-0.20UnKettering Memorial HospitalComment on above: Performed By: #### [id number] ####[facility] ([facility])[address] [place] [address]Wbgdyepjm/100 WBC (Bld)0.5 %Normal0.0-1.0UnKettering Memorial HospitalComment on above:Performed By: #### [id number] ####[facility] ([facility])[address] [place] [address]Vcqrrtsupzd (Bld) [#/Vol]0.36 10*3/uL Normal0.00-0.50UnKettering Memorial HospitalComment on above:Performed By: #### [id number] ####[facility] ([facility])[address] [place] [address] Eosinophils/100 WBC (Bld)3.9 %Normal0.0-6.0UnKettering Memorial Hospital Comment on above:Performed By: #### [id number] ####[facility] ([facility])[address] [place], [place] [address]Vmkgiwakvoq distribution width (RBC) [Ratio]14.7 % Ovmfdk55.5-15.0UnKettering Memorial HospitalComment on above:Performed By: #### [id number] ####[facility] ([facility])[address] [place] [address] ERYTHROCYTE MEAN CORPUSCULAR HEMOGLOBIN CONCENTRATION (G/DL) BY UZKRCQDXT55.8 g/dLLow32.0-35.0UnKettering Memorial HospitalComment on above:Performed By: #### [id number] ####[facility] ([facility])[address] [place], [place] [address]Ioehfwmwoe (Bld) [Volume fraction]52.9 %Rmzkux62.0-55.0UnKettering Memorial HospitalComment on above:Performed By: #### [id number] ####[facility] ([facility])[address] [place], [place] [address]Twxugawkbp (Bld) [Mass/Vol]16.3 g/dL Mdtldr18.0-17.0UnKettering Memorial HospitalComment on above:Performed By: #### [id number] ####[facility] ([facility])[address] [place] [address] Immature granulocytes (Bld) [#/Vol]0.07 10*3/uLNormal0.00-0.20UnKettering Memorial HospitalComment on above:Performed By: #### [id number] ####[facility] ([facility])[address] [place], [place] [address]Qdyygrqs granulocytes/100 WBC (Bld)0.7 %Normal0.0-1.0UnKettering Memorial HospitalComment on above: Performed By: #### [id number] ####[facility] ([facility])[address] [place], [place] [address]Oywdrllrqii (Bld) [#/Vol]1.16 10*3/uLLow1.20-4.00UnKettering Memorial HospitalComment on above:Performed By: #### [id number] ####[facility] ([facility])[address] [place], [place] [address]Uzftlubedaa/100 WBC (Bld) 12.4 %Low20.0-45.0UnKettering Memorial HospitalComment on above:Performed By: #### [id number] ####[facility] ([facility])[address] [place], [place] [address]LOB (RBC) [Entitic mass]28.8 meMcemcp39.0-33.0UnKettering Memorial HospitalComment on above:Performed By: #### [id number] ####[facility] ([facility])[address] [place], [place] [address]YQC (RBC) [Entitic vol]93.5 fLNormal 82.0-98.0UnKettering Memorial HospitalComment on above:Performed By: #### [id number] ####[facility] ([facility])[address] [place] [address] Monocytes (Bld) [#/Vol]1.21 10*3/uLHigh0.10-1.00UnKettering Memorial HospitalComment on above:Performed By: #### [id number] ####[facility] ([facility])[address] [place], [place] [address]Vnkqafgsr/100 WBC (Bld)12.9 %High 5.0-12.0UnKettering Memorial HospitalComment on above:Performed By: #### [id number] ####[facility] ([facility])[address] [place] [address] Neutrophils (Bld) [#/Vol]6.50 10*3/uLNormal1.60-7.60UnKettering Memorial HospitalComment on above:Performed By: #### [id number] ####[facility] ([facility])[address] [place], [place] [address]Tmnlzfzuyoi/100 WBC (Bld)69.6 %Normal 40.0-72.0UnKettering Memorial HospitalComment on above:Performed By: #### [id number] ####[facility] ([facility])[address] [address]CQMJ (PER 100 WBCS) BY AUTOMATED COUNT0.0 %Deosws8LyyusgtzejKettering Memorial Hospital Comment on above:Performed By: #### [id number] ####[facility] ([facility])[address] [address]ZMWPAWHBK (10*3/UL) IN BLOOD AUTOMATED DOPDA845 10*3/tKDukhkk115-471EwlmapsgsgKettering Memorial HospitalComment on above: Performed By: #### [id number] ####[facility] ([facility])[address] [address]DMB (Bld) [#/Vol]5.66 10*6/uLNormal4.20-5.70UnKettering Memorial HospitalComment on above:Performed By: #### [id number] ####[facility] ([facility])[address] [address]ZEC (Bld) [#/Vol]9.35 10*3/uLNormal4.00-10.60UnKettering Memorial HospitalComment on above: Performed By: #### [id number] ####[facility] ([facility])[address] [address]HVVU GLUCOSE METER UNSOLICITED RESULTSon 94-50-8008Ferrfkf [Mass/Vol]256 mg/pVTtor06-904RvxdnrxcxiKettering Memorial HospitalComment on above:Order Comment: Waived Testing in the ED is performed under the ED CLIA certificate #[id number].Result Comment: slbhhfv6Wkanpfgre By: #### [id number] ####[facility] ([facility])[address] [address]Zxumgxo [Mass/Vol]277 mg/cTRtkd08-449KfbucigixvKettering Memorial HospitalComment on above:Order Comment: Waived Testing in the ED is performed under the ED CLIA certificate #[id number].Result Comment: vraltno8Ibyjwuuwc By: #### [id number] ####[facility] ([facility])[address] [place], [place] [address]NOEY-BE (HEPARIN LEVEL)on 26-64-5382IABTVJE UNFRACTIONATED (U/ML) IN PPP BY CHROMOGENIC METHOD 0.30 IU/mLNormal0.3-0.7UnKettering Memorial HospitalComment on above: Result Comment: Rivaroxaban and Apixaban will interfere with the anti Xa assay used to monitor UFH and LMWH.Performed By: #### [id number] ####[facility] ([facility])[address] [place], [place] [address]MYQOTCVK BLOOD GAS WITH CO-OXIMETRYon 75-33-0989Laoo excess Calc (Bld) [Moles/Vol]6.7 mmol/LHigh-2.0-3.0UnKettering Memorial HospitalComment on above:Performed By: #### [id number] ####[facility] [id number] [place] [address] [place] CARBOXYHEMOGLOBIN/HEMOGLOBIN TOTAL % IN BLOOD2.0 %Normal0.0-3.0UnKettering Memorial HospitalComment on above:Performed By: #### [id number] ####[facility] [id number] [place] [address] USACO2 (Bld) [Partial pressure]43 mm[Hg]Ckswsw93-01WtyvurfdunKettering Memorial HospitalComment on above:Performed By: #### [id number] ####[facility] [id number] [place] [address] USADEOXYGENATED HEMOGLOBIN IN BLOOD4.9 %Normal1-5UnKettering Memorial HospitalComment on above:Performed By: #### [id number] ####[facility] [id number] [place] [address] BXPACP575 %Normal [facility] HospitalComment on above:Performed By: #### [id number] ####[facility] [id number] [place] [address] USAHCO3 (Bld) [Moles/Vol]31.3 mmol/LHigh21.0-28.0UnKettering Memorial HospitalComment on above:Performed By: #### [id number] ####[facility] [id number] [place] [address] USAHemoglobin (Bld) [Mass/Vol]16.5 g/uDBzjhcw49.7-17.4 [facility] HospitalComment on above:Performed By: #### [id number] ####[facility] [id number] [place] [address] [place] METHEMOGLOBIN/100 IN BLOOD0.7 %Normal0.0-1.5UnK[facility] Hospital Comment on above:Performed By: #### [id number] ####[facility] [id number] [place] [address] USAOxygen (Bld) [Partial pressure]68 mm[Hg]Low 83-100UnKettering Memorial HospitalComment on above:Performed By: #### [id number] ####[facility] [id number] [place] [address] USAOXYGEN SATURATION (%) IN ARTERIAL BLOOD95.0 %Wlmlbs81.0-98.0UnKettering Memorial HospitalComment on above:Performed By: #### [id number] ####[facility] [id number] [place] [address] USAOXYGENATED HEMOGLOBIN IN BLOOD92.4 %Gfuayu61.0-95.0UnKettering Memorial HospitalComment on above:Performed By: #### [id number] ####[facility] RESP[facility] [id number] [place] [address] USApH (Bld)7.47 [pH]High7.35-7.45UnKettering Memorial HospitalComment on above:Performed By: #### [id number] ####[facility] [id number] [place] [address] USASOURCE OF OXYGENBi-PAPNormalUniversity Grant HospitalComment on above:Performed By: #### [id number] ####[facility] [id number] [place] [address] USABase excess Calc (Bld) [Moles/Vol] 5.1 mmol/LHigh-2.0-3.0UnKettering Memorial HospitalComment on above: Performed By: #### [id number] ####[facility] [id number] [place] [address] USACARBOXYHEMOGLOBIN/HEMOGLOBIN TOTAL % IN BLOOD1.9 %Normal0.0-3.0 [facility] HospitalComment on above:Performed By: #### [id number] ####[facility] RESP[facility] [id number] [place] [address] USACO2 (Bld) [Partial pressure]46 mm[Hg]Rcngko30-29HqmoyhopjnKettering Memorial HospitalComment on above:Performed By: #### [id number] ####[facility] [id number] [place] [address] USADEOXYGENATED HEMOGLOBIN IN BLOOD15.8 %Critically high1-5 [facility] HospitalComment on above:Performed By: #### [id number] ####[facility] [id number] [place] [address] USAHCO3 (Bld) [Moles/Vol]30.5 mmol/LHigh21.0-28.0UnKettering Memorial HospitalComment on above:Performed By: #### [id number] ####[facility] [id number] [place] [address] USAHemoglobin (Bld) [Mass/Vol]16.4 g/cKMguxrk16.7-17.4 [facility] HospitalComment on above:Performed By: #### [id number] ####[facility] [id number] [place] [address] CVXSEZ72Uvyohz [facility] HospitalComment on above:Performed By: #### [id number] ####[facility] [id number] [place] [address] [place] METHEMOGLOBIN/100 IN BLOOD0.6 %Normal0.0-1.5UnK[facility] Memorial Hospital Comment on above:Performed By: #### [id number] ####[facility] [id number] [place] [address] USAOxygen (Bld) [Partial pressure]53 mm[Hg]Invalid Interpretation Kgwq09-236SlnjqysfqoKettering Memorial HospitalComment on above: Performed By: #### [id number] ####[facility] [id number] [place] [address] USAOXYGEN SATURATION (%) IN ARTERIAL BLOOD83.8 %Invalid Interpretation Code94.0-98.0UnKettering Memorial HospitalComment on above:Performed By: #### [id number] ####[facility] [id number] [place] [address] [place] OXYGENATED HEMOGLOBIN IN BLOOD81.7 %Invalid Interpretation Code90.0-95.0 [facility] HospitalComment on above:Performed By: #### [id number] ####[facility] RESP[facility] [id number] [place] [address] USApH (Bld)7.43 [pH]Normal7.35-7.45UnKettering Memorial HospitalComment on above:Performed By: #### [id number] ####[facility] AODUIPL7709 [place] [address] USASOURCE OF OXYGENSALTERNormalUnKettering Memorial HospitalComment on above:Performed By: #### [id number] ####[facility] [id number] [place] [address] USAARTERIAL BLOOD GAS WITH IONIZED CALCIUMon 88-68-3935Rxoz excess Calc (Bld) [Moles/Vol]6.2 mmol/LHigh-2.0-3.0UnKettering Memorial HospitalComment on above:Performed By: #### [id number] ####[facility] [id number] [place] [address] USACALCIUM IONIZED (MMOL/L) IN BLOOD 1.30 mmol/LNormal1.15-1.33UnKettering Memorial HospitalComment on above: Performed By: #### [id number] ####[facility] HGTCJCN5348 [place] [address] USACO2 (Bld) [Partial pressure]45 mm[Hg]Qdghzr57-02QstwszesthKettering Memorial HospitalComment on above:Performed By: #### [id number] ####[facility] [id number] [place] [address] OCKKYE023 %Normal [facility] HospitalComment on above:Performed By: #### [id number] ####[facility] JTGHKSQ36[address] [place] [address] USAHCO3 (Bld) [Moles/Vol]31.3 mmol/LHigh21.0-28.0UnKettering Memorial HospitalComment on above:Performed By: #### [id number] ####[facility] [id number] [place] [address] USAOxygen (Bld) [Partial pressure]70 mm[Hg]Flp97-844 [facility] HospitalComment on above:Performed By: #### [id number] ####[facility] [id number] [place] [address] USAOXYGEN SATURATION (%) IN ARTERIAL BLOOD94.9 %Tgpusf53.0-98.0UnKettering Memorial HospitalComment on above:Performed By: #### [id number] ####[facility] [id number] [place] [address] USAPEEP8 lwG4XKisjqnCmmeuhjdfdTrumbull Memorial HospitalComment on above:Performed By: #### [id number] ####[facility] [id number] [place] [address] USApH (Bld)7.45 [pH]Normal 7.35-7.45UnKettering Memorial HospitalComment on above:Performed By: #### [id number] ####[facility] [id number] [place] [address] [place] PRESSURE [id number] Memorial HospitalComment on above: Performed By: #### [id number] ####[facility] YORHDCS[address] [place] [address] USASOURCE OF OXYGENBi-PAPNormalUniversMedina Hospital Comment on above:Performed By: #### [id number] ####[facility] [id number] [place] [address] USABASIC METABOLIC PANELon 60-66-3189Hbodq gap [Moles/Vol]11 mmol/LNormal7-20UnKettering Memorial HospitalComment on above:Performed By: #### [id number] ####[facility] ([facility])[address] [place], [place] [address]Mwfkytk [Mass/Vol]9.4 mg/dLNormal8.6-10.3UnKettering Memorial HospitalComment on above:Performed By: #### [id number] ####[facility] ([facility])[address] [place], [place] [address]Ivnitsqm [Moles/Vol]101 mmol/LNormal 98-107UnKettering Memorial HospitalComment on above:Performed By: #### [id number] ####[facility] ([facility])[address] [place], [place] [address]MH7 [Moles/Vol]30 mmol/JXwxkit77-66LatbyrmqqrKettering Memorial HospitalComment on above:Performed By: #### [id number] ####[facility] ([facility])[address] [place], [place] [address]Yavxgotapl [Mass/Vol]1.05 mg/dLNormal0.70-1.30UnKettering Memorial HospitalComment on above:Performed By: #### [id number] ####[facility] ([facility])[address] [place], [place] [address]WQFJBCTNXS FILTRATION RATE ML/MIN/1.73 SQ M.FGABZYGMO10.8 mL/min/1.73m*2Normal>60.0UnKettering Memorial HospitalComment on above:Result Comment: [facility]???s estimated glomerular filtration rate (eGFR) will [...] potential consequences that do not disproportionately affect anyone group of individuals.Performed By: #### [id number] ####[facility] ([facility])[address] [place] [address]Irsrokn [Mass/Vol]269 mg/aNJcft64-546ZxphnqnnohKettering Memorial HospitalComment on above:Performed By: #### [id number] ####[facility] ([facility])[address] [place] [address]Ehuaxlfcs [Moles/Vol]4.0 mmol/LNormal3.5-5.1UnKettering Memorial HospitalComment on above:Performed By: #### [id number] ####[facility] ([facility])[address] [place] [address]Icakdx [Moles/Vol]138 mmol/L Feljyj250-666NgpcfaefzsKettering Memorial HospitalComment on above:Performed By: #### [id number] ####[facility] ([facility])[address] [place] [address]Amdf nitrogen [Mass/Vol]35 mg/dLHigh7-25UnKettering Memorial HospitalComment on above:Performed By: #### [id number] ####[facility] ([facility])[address] [place] [address]SVCA NITROGEN/CREATININE (MASS RATIO) IN SER/PLAS33.3Normal [facility] HospitalComment on above:Performed By: #### [id number] ####[facility] ([facility])[address] [place] [address]JYTNVJG, IONIZED on 51-97-3085PBSHTDM IONIZED (MMOL/L) IN BLOOD1.29 mmol/LNormal1.15-1.33 [facility] HospitalComment on above:Performed By: #### CALCIUM, IONIZED ####[facility] [id number] [place] [address] USACBC WITH AUTO DIFFERENTIALon 66-31-4701Wzuqmixfl (Bld) [#/Vol]0.05 10*3/uLNormal 0.00-0.20UnKettering Memorial HospitalComment on above:Performed By: #### [id number] ####[facility] ([facility])[address] [place] [address] Basophils/100 WBC (Bld)0.6 %Normal0.0-1.0UnK[facility] Hospital Comment on above:Performed By: #### [id number] ####[facility] ([facility] [place], [place] [address]Prisxqajmnn (Bld) [#/Vol]0.43 10*3/uLNormal 0.00-0.50UnKettering Memorial HospitalComment on above:Performed By: #### [id number] ####[facility] ([facility])[address] [place] [address] Eosinophils/100 WBC (Bld)5.2 %Normal0.0-6.0UnK[facility] Hospital Comment on above:Performed By: #### [id number] ####[facility] ([facility])[address] [place], [place] [address]Kjpnvllxixt distribution width (RBC) [Ratio]14.8 % Nataxk96.5-15.0UnKettering Memorial HospitalComment on above:Performed By: #### [id number] ####[facility] ([facility])[address] [place] [address] ERYTHROCYTE MEAN CORPUSCULAR HEMOGLOBIN CONCENTRATION (G/DL) BY EEDBCQYZB96.1 g/dLLow32.0-35.0UnKettering Memorial HospitalComment on above:Performed By: #### [id number] ####[facility] ([facility])[address] [place], [place] [address]Pdcjksfmlj (Bld) [Volume fraction]52.1 %Yhqaot06.0-55.0UnKettering Memorial HospitalComment on above:Performed By: #### [id number] ####[facility] ([facility])[address] [place], [place] [address]Iwxczurpov (Bld) [Mass/Vol]16.2 g/dL Bgojih11.0-17.0UnKettering Memorial HospitalComment on above:Performed By: #### [id number] ####[facility] ([facility])[address] [place] [address] Immature granulocytes (Bld) [#/Vol]0.06 10*3/uLNormal0.00-0.20UnKettering Memorial HospitalComment on above:Performed By: #### [id number] ####[facility] ([facility])[address] [place], [place] [address]Sumzklhp granulocytes/100 WBC (Bld)0.7 %Normal0.0-1.0UnKettering Memorial HospitalComment on above: Performed By: #### [id number] ####[facility] ([facility])[address] [place] [address]Hfffzxxmmmw (Bld) [#/Vol]1.10 10*3/uLLow1.20-4.00UnKettering Memorial HospitalComment on above:Performed By: #### [id number] ####[facility] ([facility])[address] [place] [address]Mmsfofuymxc/100 WBC (Bld) 13.3 %Low20.0-45.0UnKettering Memorial HospitalComment on above:Performed By: #### [id number] ####[facility] ([facility])[address] [place], [place] [address]MAF (RBC) [Entitic mass]29.1 elLsvqns11.0-33.0UnKettering Memorial HospitalComment on above:Performed By: #### [id number] ####[facility] ([facility])[address] [facility], [place] [address]IHU (RBC) [Entitic vol]93.7 fLNormal 82.0-98.0UnKettering Memorial HospitalComment on above:Performed By: #### [id number] ####[facility] ([facility])[address] [place] [address] Monocytes (Bld) [#/Vol]0.92 10*3/uLNormal0.10-1.00UnKettering Memorial HospitalComment on above:Performed By: #### [id number] ####[facility] ([facility])[address] [place] [address]Fdgbmexlb/100 WBC (Bld)11.1 %Normal 5.0-12.0[facility] HospitalComment on above:Performed By: #### [id number] ####[facility] ([facility])[address] [place] [address] Neutrophils (Bld) [#/Vol]5.72 10*3/uLNormal1.60-7.60UnKettering Memorial HospitalComment on above:Performed By: #### [id number] ####[facility] ([facility])[address] [place] [address]Diugebwklcd/100 WBC (Bld)69.1 %Normal 40.0-72.0UnKettering Memorial HospitalComment on above:Performed By: #### [id number] ####[facility] ([facility])[address] [place] [address]WJAG (PER 100 WBCS) BY AUTOMATED COUNT0.0 %Ybqufj7YcelkrvcbmKettering Memorial Hospital Comment on above:Performed By: #### [id number] ####[facility] ([facility])[address] [place] [address]AKPURJLKQ (10*3/UL) IN BLOOD AUTOMATED DSWDX379 10*3/sVZzzgzg546-952AknqxyvjzaKettering Memorial HospitalComment on above: Performed By: #### [id number] ####[facility] ([facility])[address] [place] [address]IAA (Bld) [#/Vol]5.56 10*6/uLNormal4.20-5.70UnKettering Memorial HospitalComment on above:Performed By: #### [id number] ####[facility] ([facility])[address] [place] [address]EAI (Bld) [#/Vol]8.28 10*3/uLNormal4.00-10.60UnKettering Memorial HospitalComment on above: Performed By: #### [id number] ####[facility] ([facility])[address] [place], [place] [address]KI BRAIN PERFUSIONon 34-88-4816KW BRAIN PERFUSIONInvalid Interpretation CodeUnKettering Memorial HospitalCT HEAD WO IV CONTRASTon 72-29-6066NP HEAD WO IV CONTRASTNormalUniversity Grant HospitalCTA HEAD W IV CONTRASTon 84-09-6489CKZ HEAD W IV CONTRASTNormalUniversMedina HospitalCTA NECK W IV CONTRASTon 40-84-8348NYR NECK W IV CONTRASTNormal [facility] HospitalMAGNESIUMon 78-32-64[address]Roirdzsbj [Mass/Vol]1.8 mg/dLLow1.9-2.7UnKettering Memorial HospitalComment on above:Performed By: #### [id number] ####[facility] ([facility])[address] [place] [address] MRSA/MSSA DNA NASALon 40-14-6576TUHN DNAPositiveAbnormalNegativeUnKettering Memorial HospitalComment on above:Order Comment: Testing methodology is an automated qualitative in vitro [...] A negative result does not preclude nasal colonization.Performed By: #### [id number] ####[facility] ([facility])[address] [place], [place] [address]KRVR DNANegativeNormalNegative [facility] HospitalComment on above:Order Comment: Testing methodology is an automated qualitative in vitro diagnostic test for the dire ctdetection and differentiation of Staphylococcus aureus (SA) DNA and methicillin-resistant Staphylococcus aureus (MRSA) DNA from nasal swabs in patients at risk for nasal colonization. The test utilizes real-time polymerase chain reaction (PCR) for the amplification of MRSA/SA DNA and fluorogenic t arget-specific hybridization probes for the detection of the amplified DNA. A negative result does not preclude nasal colonization.Performed By: #### [id number] ####[facility] ([facility])[address] [place], [place] [address]YVRRQIBFSOww 40-49-6163Vhelilepy [Mass/Vol]2.5 mg/dLNormal2.5-5.0UnKettering Memorial HospitalComment on above:Performed By: #### [id number] ####[facility] ([facility])[address] [place], [place] [address]KMQB GLUCOSE METER UNSOLICITED RESULTS on 70-49-5811Lvdapcj [Mass/Vol]230 mg/pWGvcw80-230HscrubfyzdKettering Memorial HospitalComment on above:Order Comment: Waived Testing in the ED is performed under the ED CLIA certificate #[id number].Result Comment: rbareroPerformed By: #### [id number] ####[facility] ([facility])[address] [address] Glucose [Mass/Vol]226 mg/mCQxqq39-313LhfnamndmvKettering Memorial HospitalComment on above:Order Comment: Waived Testing in the ED is performed under the ED CLIA certificate #[id number].Result Comment: fnykykz9Zesrczlsd By: #### [id number] ####[facility] ([facility])[address] [place], [place] [address]Uhxwwhr [Mass/Vol]229 mg/kVMvys05-071CmlkqshearKettering Memorial HospitalComment on above:Order Comment: Waived Testing in the ED is performed under the ED CLIA certificate #[id number].Result Comment: yofyuqu9Roxztknuj By: #### [id number] ####[facility] ([facility])[address] [place], [place] [address]Srxgtmo [Mass/Vol]234 mg/lFFxdd95-136HlqjbtqqctKettering Memorial HospitalComment on above:Order Comment: Waived Testing in the ED is performed under the ED CLIA certificate #[id number].Result Comment: [id number] By: #### [id number] ####[facility] ([facility])[address] [place], [place] [address]ZEMHJFGIA, WHOLE BLOODon 34-86-7362Wamtezrnn [Moles/Vol]3.3 mmol/LLow3.5-5.1UnKettering Memorial HospitalComment on above:Performed By: #### POTASSIUM, WHOLE BLOOD ####[facility] [id number] [place] [address] USASODIUM, WHOLE BLOODon 81-08-1911CDVGIM, WHOLE MIZLI728Kjmmra687-544VbobavkegkKettering Memorial HospitalComment on above:Performed By: #### SODIUM, WHOLE BLOOD ####[facility] [address]VHR[address] [place] [address] XLF95hj 09-55-146377Vtqmhn [facility] HospitalANTI-XA (HEPARIN LEVEL)on 95-30-0266TPHYIGJ UNFRACTIONATED (U/ML) IN PPP BY CHROMOGENIC METHOD0.30 IU/mLNormal0.3-0.7 [facility] HospitalComment on above:Result Comment: Rivaroxaban and Apixaban will interfere with the anti Xa assay used to monitor UFH and LMWH. Performed By: #### [id number] ####[facility] ([facility])[address] [place], [place] [address]GFKNM METABOLIC PANELon 10-65-6852Dgjds gap [Moles/Vol]8 mmol/LNormal7-20UnKettering Memorial HospitalComment on above:Performed By: #### [id number] ####[facility] ([facility])[address] [place] [address] Calcium [Mass/Vol]9.4 mg/dLNormal8.6-10.3UnKettering Memorial Hospital Comment on above:Performed By: #### [id number] ####[facility] ([facility])[address] [place], [place] [address]Lfejjkrs [Moles/Vol]99 mmol/EBgskpx65-243ZaeycffknmKettering Memorial HospitalComment on above:Performed By: #### LAB15 ####[facility] ([facility])[address] [place], [place] [address]CC[address] [Moles/Vol]34 mmol/L Legu38-11YejydkietkKettering Memorial HospitalComment on above:Performed By: #### [id number] ####[facility] ([facility])[address] [place] [address]Gjgnbycsxb [Mass/Vol]0.97 mg/dLNormal0.70-1.30UnKettering Memorial HospitalComment on above:Performed By: #### [id number] ####[facility] ([facility])[address] [place] [address]YUVJOCBDTC FILTRATION RATE ML/MIN/1.73 SQ M.JRCESIMXN85.6 mL/min/1.73m*2Normal>60.0UnKettering Memorial HospitalComment on above: Result Comment: [facility]???s estimated glomerular filtration rate (eGFR) will [...] potential consequences that do not disproportionately affect anyone group of individuals.Performed By: #### [id number] ####[facility] ([facility])[address] [place] [address]Zvgsvcf [Mass/Vol]267 mg/hMHsky14-131SfzkccbpktKettering Memorial HospitalComment on above:Performed By: #### [id number] ####[facility] ([facility])[address] [place] [address]Gwksvlhxr [Moles/Vol]3.9 mmol/L Normal3.5-5.1UnKettering Memorial HospitalComment on above:Performed By: #### [id number] ####[facility] ([facility])[address] [place] [address] Sodium [Moles/Vol]137 mmol/RKkhgel846-062QfxedjzawiKettering Memorial Hospital Comment on above:Performed By: #### [id number] ####[facility] ([facility])[address] [place] [address]Xksn nitrogen [Mass/Vol]33 mg/dLHigh7-25UnKettering Memorial HospitalComment on above:Performed By: #### [id number] ####[facility] ([facility])[address] [place] [address]IGMR NITROGEN/CREATININE (MASS RATIO) IN SER/PLAS34.0NormalUniversMedina HospitalComment on above:Performed By: #### [id number] ####[facility] ([facility])[address] [place] [address]FXM WITH AUTO DIFFERENTIALon 73-92-7828Ukbugldah (Bld) [#/Vol]0.04 10*3/uLNormal0.00-0.20UnKettering Memorial HospitalComment on above:Performed By: #### [id number] ####[facility] ([facility])[address] [place], [place] [address]Rmfgpaxqk/100 WBC (Bld)0.4 %Normal0.0-1.0UnKettering Memorial HospitalComment on above:Performed By: #### [id number] ####[facility] ([facility])[address] [place], [place] [address]Gkthaoyfurk (Bld) [#/Vol]0.58 10*3/uL High0.00-0.50UnKettering Memorial HospitalComment on above:Performed By: #### [id number] ####[facility] ([facility])[address] [address] Eosinophils/100 WBC (Bld)5.6 %Normal0.0-6.0UnKettering Memorial Hospital Comment on above:Performed By: #### [id number] ####[facility] ([facility])[address] [place], [place] [address]Xgrwaktvtxd distribution width (RBC) [Ratio]15.1 % High11.5-15.0UnKettering Memorial HospitalComment on above:Performed By: #### [id number] ####[facility] ([facility])[address] [place] [address] ERYTHROCYTE MEAN CORPUSCULAR HEMOGLOBIN CONCENTRATION (G/DL) BY XHKOKDVXP32.5 g/dLLow32.0-35.0UnKettering Memorial HospitalComment on above:Performed By: #### [id number] ####[facility] ([facility])[address] [place], [place] [address]Czukszanei (Bld) [Volume fraction]52.1 %Rdbweo94.0-55.0UnKettering Memorial HospitalComment on above:Performed By: #### [id number] ####[facility] ([facility])[address] [place], [place] [address]Iwrqxrwhwc (Bld) [Mass/Vol]15.9 g/dL Swlguk98.0-17.0UnKettering Memorial HospitalComment on above:Performed By: #### [id number] ####[facility] ([facility])[address] [place] [address] Immature granulocytes (Bld) [#/Vol]0.07 10*3/uLNormal0.00-0.20UnKettering Memorial HospitalComment on above:Performed By: #### [id number] ####[facility] ([facility])[address] [place], [place] [address]Yaqgteax granulocytes/100 WBC (Bld)0.7 %Normal0.0-1.0UnKettering Memorial HospitalComment on above: Performed By: #### [id number] ####[facility] ([facility])[address] [place], [place] [address]Apzlbgybqvo (Bld) [#/Vol]0.94 10*3/uLLow1.20-4.00UnKettering Memorial HospitalComment on above:Performed By: #### [id number] ####[facility] ([facility])[address] [place], [place] [address]Zltigqnedqj/100 WBC (Bld) 9.1 %Low20.0-45.0UnKettering Memorial HospitalComment on above:Performed By: #### [id number] ####[facility] ([facility])[address] [place], [place] [address]CRK (RBC) [Entitic mass]29.0 xjEwqywr56.0-33.0UnKettering Memorial HospitalComment on above:Performed By: #### [id number] ####[facility] ([facility])[address] [place], [place] [address]WTM (RBC) [Entitic vol]94.9 fLNormal 82.0-98.0UnKettering Memorial HospitalComment on above:Performed By: #### [id number] ####[facility] ([facility])[address] [place] [address] Monocytes (Bld) [#/Vol]0.95 10*3/uLNormal0.10-1.00UnKettering Memorial HospitalComment on above:Performed By: #### [id number] ####[facility] ([facility])[address] [facility] [place] [address]Vwzdhuosa/100 WBC (Bld)9.2 %Normal 5.0-12.0UnKettering Memorial HospitalComment on above:Performed By: #### [id number] ####[facility] ([facility])[address] [place] [address] Neutrophils (Bld) [#/Vol]7.72 10*3/uLHigh1.60-7.60UnKettering Memorial HospitalComment on above:Performed By: #### [id number] ####[facility] ([facility])[address] [facility] [place] [address]Kujaulyblih/100 WBC (Bld)75.0 %High 40.0-72.0UnKettering Memorial HospitalComment on above:Performed By: #### [id number] ####[facility] ([facility])[address] [facility] [address]OWQB (PER 100 WBCS) BY AUTOMATED COUNT0.0 %Pceles7BidmojacvlKettering Memorial Hospital Comment on above:Performed By: #### [id number] ####[facility] ([facility])[address] [place] [address]QFCLOMNCN (10*3/UL) IN BLOOD AUTOMATED [id number] 10*3/jKYafnas921-387DhoamqqondKettering Memorial HospitalComment on above: Performed By: #### [id number] ####[facility] ([facility])[address] [place] [address]MJB (Bld) [#/Vol]5.49 10*6/uLNormal4.20-5.70UnKettering Memorial HospitalComment on above:Performed By: #### [id number] ####[facility] ([facility])[address] [place] [address]JTL (Bld) [#/Vol]10.30 10*3/uLNormal4.00-10.60UnKettering Memorial HospitalComment on above: Performed By: #### [id number] ####[facility] ([facility])[address] [place] [address]RBQEEBUABkm 76-91-8008Etgoegsnk [Mass/Vol]1.9 mg/dLNormal 1.9-2.7UnKettering Memorial HospitalComment on above:Performed By: #### [id number] ####[facility] ([facility])[address] [place] [address] PHOSPHORUSon 11-80-1086Oarbxabyn [Mass/Vol]2.1 mg/dLLow2.5-5.0UnKettering Memorial HospitalComment on above:Performed By: #### [id number] ####[facility] ([facility])[address] [place] [address]WXKT GLUCOSE METER UNSOLICITED RESULTSon 56-80-9799Dhyrckm [Mass/Vol]268 mg/vOWoqv29-387CjhzqnzxvsKettering Memorial HospitalComment on above:Order Comment: Waived Testing in the ED is performed under the ED CLIA certificate #[id number].Result Comment: [email or web address] Performed By: #### [id number] ####[facility] ([facility])[address] [id number] 56-83-632172BdenkdKcafveowgd of [place] [facility] Uznwrk69 NormalUnKettering Memorial HospitalANTI-XA (HEPARIN LEVEL)on 08-19-2024 HEPARIN UNFRACTIONATED (U/ML) IN PPP BY CHROMOGENIC METHOD0.41 IU/mLNormal 0.3-0.7UnKettering Memorial HospitalComment on above:Result Comment: Rivaroxaban and Apixaban will interfere with the anti Xa assay used to monitor UFH and LMWH.Performed By: #### [id number] ####[facility] ([facility])[address] [place] [address]BLXBK METABOLIC PANELon 87-26-9775Dfpwe gap [Moles/Vol]8 mmol/LNormal7-20UnKettering Memorial HospitalComment on above:Performed By: #### [id number] ####[facility] ([facility])[address] [place] [address]Yxjhkpb [Mass/Vol]8.9 mg/dLNormal8.6-10.3UnKettering Memorial HospitalComment on above:Performed By: #### [id number] ####[facility] ([facility])[address] [place] [address]Rlnqxwmg [Moles/Vol]99 mmol/LNormal 98-107UnKettering Memorial HospitalComment on above:Performed By: #### [id number] ####[facility] ([facility])[address] [place] [address]HJ4 [Moles/Vol]37 mmol/QAhld29-78XnjvxgkasdKettering Memorial HospitalComment on above:Performed By: #### [id number] ####[facility] ([facility])[address] [place], [place] [address]Cjztofexsz [Mass/Vol]1.00 mg/dLNormal0.70-1.30UnKettering Memorial HospitalComment on above:Performed By: #### [id number] ####[facility] ([facility])[address] [place], [place] [address]XCTWAIPLFP FILTRATION RATE ML/MIN/1.73 SQ M.CRPSEYGPS70.5 mL/min/1.73m*2Normal>60.0UnKettering Memorial HospitalComment on above:Result Comment: The [facility]???s estimated glomerular filtration rate (eGFR) will [...] potential consequences that do not disproportionately affect anyone group of individuals.Performed By: #### [id number] ####[facility] ([facility])[address] [facility] [place] [address]Hbpqmal [Mass/Vol]219 mg/bPFjnv14-075UsdkujcvasKettering Memorial HospitalComment on above:Performed By: #### [id number] ####[facility] ([facility])[address] [place] [address]Aonfhnklq [Moles/Vol]3.9 mmol/LNormal3.5-5.1UnKettering Memorial HospitalComment on above:Performed By: #### [id number] ####[facility] ([facility])[address] [facility] [place] [address]Qmjeaw [Moles/Vol]140 mmol/L Uqdimp254-170JwlxtkjfozKettering Memorial HospitalComment on above:Performed By: #### [id number] ####[facility] ([facility])[address] [facility] [address]Zuzu nitrogen [Mass/Vol]28 mg/dLHigh7-25UnKettering Memorial HospitalComment on above:Performed By: #### [id number] ####[facility] ([facility])[address] [facility] [place] [address]JJUV NITROGEN/CREATININE (MASS RATIO) IN SER/PLAS28.0Normal [facility] HospitalComment on above:Performed By: #### [id number] ####[facility] ([facility])[address] [facility] [place] [place] [place] [address]KGG WITH AUTO DIFFERENTIALon 96-17-8734Dcqyhavdb (Bld) [#/Vol]0.04 10*3/uLNormal0.00-0.20 [facility] HospitalComment on above:Performed By: #### [id number] ####[facility] ([facility])[address] [place] [address]Jsuaowdvl/100 WBC (Bld)0.4 %Normal0.0-1.0UnKettering Memorial HospitalComment on above: Performed By: #### [id number] ####[facility] ([facility])[address] [place] [address]Jnezcmwnqxx (Bld) [#/Vol]0.62 10*3/uLHigh0.00-0.50UnKettering Memorial HospitalComment on above:Performed By: #### [id number] ####[facility] ([facility])[address] [place], [place] [address]Gtkyffxvhjr/100 WBC (Bld) 6.7 %High0.0-6.0UnKettering Memorial HospitalComment on above:Performed By: #### [id number] ####[facility] ([facility])[address] [place], [place] [address]Zofjyxuhnop distribution width (RBC) [Ratio]15.4 %High11.5-15.0UnKettering Memorial HospitalComment on above:Performed By: #### [id number] ####[facility] ([facility])[address] [place], [place] [address]TKJQJDLRWFG MEAN CORPUSCULAR HEMOGLOBIN CONCENTRATION (G/DL) BY DFYUSIKXW74.8 g/dLLow32.0-35.0 [facility] HospitalComment on above:Performed By: #### [id number] ####[facility] ([facility])[address] [place], [place] [address]Zcjjszvshc (Bld) [Volume fraction]49.4 %Zxicue62.0-55.0UnKettering Memorial Hospital Comment on above:Performed By: #### [id number] ####[facility] ([facility])[address] [place], [place] [address]Unuahcywvw (Bld) [Mass/Vol]14.7 g/yFCpauoa12.0-17.0 [facility] HospitalComment on above:Performed By: #### [id number] ####[facility] ([facility])[address] [place], [place] [address]Warmodqx granulocytes (Bld) [#/Vol]0.06 10*3/uLNormal0.00-0.20UnKettering Memorial HospitalComment on above:Performed By: #### [id number] ####[facility] ([facility])[address] [place], [place] [address]Xrkwbjfk granulocytes/100 WBC (Bld)0.7 %Normal0.0-1.0UnKettering Memorial HospitalComment on above:Performed By: #### [id number] ####[facility] ([facility])[address] [place] [address] Lymphocytes (Bld) [#/Vol]0.86 10*3/uLLow1.20-4.00UnKettering Memorial HospitalComment on above:Performed By: #### [id number] ####[facility] ([facility])[address] [place], [place] [address]Knbhmtvumyt/100 WBC (Bld)9.3 %Low 20.0-45.0UnKettering Memorial HospitalComment on above:Performed By: #### [id number] ####[facility] ([facility])[address] [place], [place] [address]OMS (RBC) [Entitic mass]28.9 iwFfxfgw34.0-33.0UnKettering Memorial Hospital Comment on above:Performed By: #### [id number] ####[facility] ([facility])[address] [place], [place] [address]AFF (RBC) [Entitic vol]97.2 fTWemoce81.0-98.0 [facility] Medical CenterComment on above:Performed By: #### [id number] ####[facility] ([facility])[address] [place] [address]Ckkpxhznd (Bld) [#/Vol]0.94 10*3/uLNormal0.10-1.00UnKettering Memorial HospitalComment on above:Performed By: #### [id number] ####[facility] ([facility])[address] [place] [address]Evdpsejgm/100 WBC (Bld)10.2 %Normal5.0-12.0UnKettering Memorial HospitalComment on above:Performed By: #### [id number] ####[facility] ([facility])[address] [place], [place] [address]Wdquqgkjbim (Bld) [#/Vol] 6.68 10*3/uLNormal1.60-7.60UnKettering Memorial HospitalComment on above: Performed By: #### [id number] ####[facility] ([facility])[address] [place] [address]Ehighacvvro/100 WBC (Bld)72.7 %High40.0-72.0UnKettering Memorial HospitalComment on above:Performed By: #### [id number] ####[facility] ([facility])[address] [place] [address]HYHJ (PER 100 WBCS) BY AUTOMATED COUNT0.0 %Mylhyz5HhuxiesaquKettering Memorial HospitalComment on above: Performed By: #### [id number] ####[facility] ([facility])[address] [place] [address]THCKODZNK (10*3/UL) IN BLOOD AUTOMATED ONLAE874 10*3/uLNormal 150-400UnKettering Memorial HospitalComment on above:Performed By: #### [id number] ####[facility] ([facility])[address] [place], [place] [address]WXY (Bld) [#/Vol]5.08 10*6/uLNormal4.20-5.70UnKettering Memorial Hospital Comment on above:Performed By: #### [id number] ####[facility] ([facility])[address] [place] [address]UEV (Bld) [#/Vol]9.20 10*3/uLNormal4.00-10.60 [facility] HospitalComment on above:Performed By: #### [id number] ####[facility] ([facility])[address] [address]OASRNVYhc 58-42-9296QCAZDRKIgnhfgFydxcnshmv Grant HospitalMAGNESIUMon 08-19-2024 Magnesium [Mass/Vol]1.9 mg/dLNormal1.9-2.7UnK[facility] Memorial Hospital Comment on above:Performed By: #### [id number] ####[facility] ([facility])[address] [address]NOXUOQYKKVoq 62-26-7187Nsrgpifvo [Mass/Vol]2.9 mg/dLNormal2.5-5.0UnKettering Memorial HospitalComment on above:Performed By: #### [id number] ####[facility] ([facility])[address] [place] [address] POCT GLUCOSE METER UNSOLICITED RESULTSon 91-05-4826Lcupfsu [Mass/Vol]239 mg/dL Grtt04-527FnuuwtmpelKettering Memorial HospitalComment on above:Order Comment: Waived Testing in the ED is performed under the ED CLIA certificate #[id number]. Result Comment: [id number] By: #### [id number] ####[facility] ([facility])[address] [place] [address]Altdvkr [Mass/Vol]251 mg/mRMfmy77-903 [facility] HospitalComment on above:Order Comment: Waived Testing in the ED is performed under the ED CLIA certificate #[id number].Result Comment: [id number] By: #### [id number] ####[facility] ([facility])[address] [place] [address]Nstnxqu [Mass/Vol]185 mg/hNUrkp18-886KalinkneawKettering Memorial HospitalComment on above:Order Comment: Waived Testing in the ED is performed under the ED CLIA certificate #[id number].Result Comment: [email or web address] Performed By: #### [id number] ####[facility] ([facility])[address] [place], [place] [address]FMJPJQBMIYBYGxe 73-45-4431IBXHKPP?UNKNOWNNormalUniversity of Hca Houston Healthcare Clear LakeComment on above:Performed By: #### [id number] ####[facility] ([facility])[address] [place], [place] [address]Wimqlwdzn [Mass/Vol]192 mg/jQIjrg59-301RceekxscyvKettering Memorial HospitalComment on above:Result Comment: TRIGLYCERIDE REFERENCE RANGE:20 YEARS AND OLDER CARDIOVASCULAR RISKLESS THAN 150 mg/dL LOW YQUE145 TO 199 mg/dL BORDERLINE CADK443 mg/dL AND GREATER HIGH RISKPerformed By: #### [id number] ####[facility] ([facility])[address] [place], [place] [address]NUOA-EI (HEPARIN LEVEL)on 85-83-75[address]TVTNOKG UNFRACTIONATED (U/ML) IN PPP BY CHROMOGENIC METHOD0.50 IU/mLNormal0.3-0.7[facility] HospitalComment on above:Result Comment: Rivaroxaban and Apixaban will interfere with the anti Xa assay used to monitor UFH and LMWH.Performed By: #### [id number] ####[facility] ([facility])[address] [place], [place] [address]VTWDXLH UNFRACTIONATED (U/ML) IN PPP BY CHROMOGENIC METHOD0.60 IU/mLNormal0.3-0.7 [facility] HospitalComment on above:Result Comment: Rivaroxaban and Apixaban will interfere with the anti Xa assay used to monitor UFH and LMWH. Performed By: #### [id number] ####[facility] ([facility])[address] [place], [place] [address]JRQKT METABOLIC PANELon 55-33-9333Qknky gap [Moles/Vol]8 mmol/LNormal7-20UnKettering Memorial HospitalComment on above:Performed By: #### [id number] ####[facility] ([facility])[address] [place] [address] Calcium [Mass/Vol]8.7 mg/dLNormal8.6-10.3UnKettering Memorial Hospital Comment on above:Performed By: #### [id number] ####[facility] ([facility])[address] [place] [address]Jjalppve [Moles/Vol]98 mmol/LFrjzpo41-785PdkphcuxnoKettering Memorial HospitalComment on above:Performed By: #### [id number] ####[facility] ([facility])[address] [place] [address]JP4 [Moles/Vol]41 mmol/L Critically mmdi57-81AbpxjpucvoKettering Memorial HospitalComment on above: Performed By: #### [id number] ####[facility] ([facility])[address] [place], [place] [address]Qzyvixgvns [Mass/Vol]1.05 mg/dLNormal0.70-1.30UnKettering Memorial HospitalComment on above:Performed By: #### [id number] ####[facility] ([facility])[address] [place], [place] [address]UJGFAPMJTT FILTRATION RATE ML/MIN/1.73 SQ M.UGVTHVVUA69.8 mL/min/1.73m*2Normal>60.0UnKettering Memorial Hospital Comment on above:Result Comment: The [facility]???s estimated glomerular filtration rate (eGFR) will no longer include consideration of race in its calculation. The National Kid[employer] Foundation???s eGFR Task Force developed new recommendations for the estimation of the glomerular filtration ra te in the [place] They recommend immediate implementation of the new equation refit without the race variable in all laboratories because the calculation does not include race. In addition to not including race in the calculation and reporting, it included diversity in its development, and has acceptable performance characteristics and potential consequences that do not disproportionately affect anyone group of individuals.Performed By: #### [id number] ####[facility] ([facility])[address] [address]Kwaexql [Mass/Vol]201 mg/wAXkdr11-158VaxmjlizpyKettering Memorial HospitalComment on above:Performed By: #### [id number] ####[facility] ([facility])[address] [place] [address]Xngleyukl [Moles/Vol]3.7 mmol/LNormal3.5-5.1UnKettering Memorial HospitalComment on above:Performed By: #### [id number] ####[facility] ([facility])[address] [place] [address]Zrrfdt [Moles/Vol]143 mmol/L Xvfagi716-858SmpfedxjcmKettering Memorial HospitalComment on above:Performed By: #### [id number] ####[facility] ([facility])[address] [facility], [place] [address]Dvrs nitrogen [Mass/Vol]25 mg/dLNormal7-25UnKettering Memorial HospitalComment on above:Performed By: #### [id number] ####[facility] ([facility])[address] [place] [address]GGAL NITROGEN/CREATININE (MASS RATIO) IN SER/PLAS23.8Normal [facility] HospitalComment on above:Performed By: #### [id number] ####[facility] ([facility])[address] [place] [address]VDJ WITH AUTO DIFFERENTIALon 71-03-1988Tdcsqekcy (Bld) [#/Vol]0.03 10*3/uLNormal0.00-0.20 [facility] HospitalComment on above:Performed By: #### [id number] ####[facility] ([facility])[address] [facility], [place] [address]Jtoqpgmyu/100 WBC (Bld)0.3 %Normal0.0-1.0UnKettering Memorial HospitalComment on above: Performed By: #### [id number] ####[facility] ([facility])[address] [place], [place] [address]Iabuvhkldbi (Bld) [#/Vol]0.45 10*3/uLNormal0.00-0.50 [facility] HospitalComment on above:Performed By: #### [id number] ####[facility] ([facility])[address] [place], [place] [address]Vksfpdwtqkq/100 WBC (Bld)5.0 %Normal0.0-6.0UnKettering Memorial HospitalComment on above: Performed By: #### [id number] ####[facility] ([facility])[address] [place], [place] [address]Cyiptgxhgyf distribution width (RBC) [Ratio]15.5 %High 11.5-15.0UnKettering Memorial HospitalComment on above:Performed By: #### [id number] ####[facility] ([facility])[address] [place] [address] ERYTHROCYTE MEAN CORPUSCULAR HEMOGLOBIN CONCENTRATION (G/DL) BY NFYYMKWZI94.7 g/dLLow32.0-35.0UnKettering Memorial HospitalComment on above:Performed By: #### [id number] ####[facility] ([facility])[address] [place], [place] [address]Mkdbjgiglk (Bld) [Volume fraction]49.5 %Jykatv20.0-55.0UnKettering Memorial HospitalComment on above:Performed By: #### [id number] ####[facility] ([facility])[address] [place], [place] [address]Cnjgnauwpx (Bld) [Mass/Vol]14.7 g/dL Rhhhly08.0-17.0UnKettering Memorial HospitalComment on above:Performed By: #### [id number] ####[facility] ([facility])[address] [place] [address] Immature granulocytes (Bld) [#/Vol]0.05 10*3/uLNormal0.00-0.20UnKettering Memorial HospitalComment on above:Performed By: #### [id number] ####[facility] ([facility])[address] [place], [place] [address]Qxumoves granulocytes/100 WBC (Bld)0.6 %Normal0.0-1.0UnKettering Memorial HospitalComment on above: Performed By: #### [id number] ####[facility] ([facility])[address] [place] [address]Pmypmorzsmx (Bld) [#/Vol]0.93 10*3/uLLow1.20-4.00UnKettering Memorial HospitalComment on above:Performed By: #### [id number] ####[facility] ([facility])[address] [place] [address]Iuickvgywqp/100 WBC (Bld) 10.4 %Low20.0-45.0UnKettering Memorial HospitalComment on above:Performed By: #### [id number] ####[facility] ([facility])[address] [place], [place] [address]HDW (RBC) [Entitic mass]29.2 erWgiivn66.0-33.0UnKettering Memorial HospitalComment on above:Performed By: #### [id number] ####[facility] ([facility])[address] [place], [place] [address]KTD (RBC) [Entitic vol]98.2 fLHigh 82.0-98.0UnKettering Memorial HospitalComment on above:Performed By: #### [id number] ####[facility] ([facility])[address] [place] [address] Monocytes (Bld) [#/Vol]1.06 10*3/uLHigh0.10-1.00UnKettering Memorial HospitalComment on above:Performed By: #### [id number] ####[facility] ([facility])[address] [place], [place] [address]Qagwzkuwi/100 WBC (Bld)11.9 %Normal 5.0-12.0UnKettering Memorial HospitalComment on above:Performed By: #### [id number] ####[facility] ([facility])[address] [place] [address] Neutrophils (Bld) [#/Vol]6.41 10*3/uLNormal1.60-7.60UnKettering Memorial HospitalComment on above:Performed By: #### [id number] ####[facility] ([facility])[address] [place] [address]Uqazgrwidmw/100 WBC (Bld)71.8 %Normal 40.0-72.0UnKettering Memorial HospitalComment on above:Performed By: #### [id number] ####[facility] ([facility])[address] [place] [address]MWNA (PER 100 WBCS) BY AUTOMATED COUNT0.0 %Jfhexr1YrfjrnznxfKettering Memorial Hospital Comment on above:Performed By: #### [id number] ####[facility] ([facility])[address] [place] [address]PABIHGIHK (10*3/UL) IN BLOOD AUTOMATED [id number] 10*3/xKEnuvky836-463LplwucckwpKettering Memorial HospitalComment on above: Performed By: #### [id number] ####[facility] ([facility])[address] [place] [address]PHS (Bld) [#/Vol]5.04 10*6/uLNormal4.20-5.70UnKettering Memorial HospitalComment on above:Performed By: #### [id number] ####[facility] ([facility])[address] [place] [address]JHQ (Bld) [#/Vol]8.93 10*3/uLNormal4.00-10.60UnKettering Memorial HospitalComment on above: Performed By: #### [id number] ####[facility] ([facility])[address] [place] [address]NDMBVRZwz 51-42-7432BWOCFTMBbeyfcZminfncpjx [facility] HospitalMAGNESIUMon 76-86-90[address]Hdhrperap [Mass/Vol]2.1 mg/dLNormal1.9-2.7 [facility] HospitalComment on above:Performed By: #### [id number] ####[facility] ([facility])[address] [place], [place] [address]FFVVWKFVWCzl 10-36-2280Njnxofygh [Mass/Vol]2.9 mg/dLNormal2.5-5.0UnKettering Memorial HospitalComment on above:Performed By: #### [id number] ####[facility] ([facility])[address] [place], [place] [address]CLQX GLUCOSE METER UNSOLICITED RESULTS on 28-37-1433Mwekkgq [Mass/Vol]194 mg/eVXjzi50-354AkbuciioimKettering Memorial HospitalComment on above:Order Comment: Waived Testing in the ED is performed under the ED CLIA certificate #[id number].Result Comment: phtfnyb3Soipzxmjf By: #### [id number] ####[facility] ([facility])[address] [place] [address] Glucose [Mass/Vol]183 mg/dFWkxr83-980RafatfxrsnKettering Memorial HospitalComment on above:Order Comment: Waived Testing in the ED is performed under the ED CLIA certificate #[id number].Result Comment: izufoio7Dycwwkepo By: #### [id number] ####[facility] (AKER)[address] [place], [place] [address]Kdplxmm [Mass/Vol]173 mg/iSOgjc22-505HgssjjdxzkKettering Memorial HospitalComment on above:Order Comment: Waived Testing in the ED is performed under the ED CLIA certificate #[id number].Result Comment: svcgvxf6Yclfoqeui By: #### [id number] ####[facility] ([facility])[address] [place], [place] [address]Uwqywpz [Mass/Vol]200 mg/nHVteu57-148NtxskskbvuKettering Memorial HospitalComment on above:Order Comment: Waived Testing in the ED is performed under the ED CLIA certificate #[id number].Result Comment: iivmdid7Aziuinkhk By: #### [id number] ####[facility] ([facility])[address] [place], [place] [address]MFJIRG CULTUREon 89-29-5230Bufmzazbkxa [Susc]<=0.5SusceptibleAultman Orrville Hospital Comment on above:Performed By: #### [id number] ####[facility] ([facility])[address] [place], [place] [address]NKJNQpgtpm [Susc]<=1SusceptibleUnKettering Memorial HospitalComment on above:Performed By: #### [id number] ####[facility] ([facility])[address] [place], [place] [address]Hdwoiionq [Susc]<=1Susceptible [facility] HospitalComment on above:Performed By: #### [id number] ####[facility] ([facility])[address] [place], [place] [address]Sdyjkhlvq [Susc] >2ResistantUnKettering Memorial HospitalComment on above:Performed By: #### [id number] ####[facility] ([facility])[address] [place] [address] Tetracycline [Susc]<=0.5SusceptibleUnKettering Memorial HospitalComment on above:Performed By: #### [id number] ####[facility] ([facility])[address] [place], [place] [address]Volmdxahjhqs+Sulfamethoxazole [Susc]<=0.5/9.5Susceptible [facility] HospitalComment on above:Performed By: #### [id number] ####[facility] ([facility])[address] [place], [place] [address]Uxnbtpjpph [Susc]<=0.5SusceptibleUnKettering Memorial HospitalComment on above: Performed By: #### [id number] ####[facility] ([facility])[address] [place], [place] [address]BUAJXSTYXOQUHxg [id number]?unknownNormalUniversMedina HospitalComment on above:Performed By: #### [id number] ####[facility] ([facility])[address] [place], [place] [address]Oyoalcfxs [Mass/Vol]154 mg/lAKrab99-475ZhctbphvcjKettering Memorial HospitalComment on above:Result Comment: TRIGLYCERIDE REFERENCE RANGE:20 YEARS AND OLDER CARDIOVASCULAR RISKLESS THAN 150 mg/dL LOW [id number] TO 199 mg/dL BORDERLINE ZIZX109 mg/dL AND GREATER HIGH RISKPerformed By: #### [id number] ####[facility] ([facility])[address] [place], [place] [address]98ic [id number] of [facility] ANTI-XA (HEPARIN LEVEL)on [id number] UNFRACTIONATED (U/ML) IN PPP BY CHROMOGENIC METHOD0.86 IU/mLHigh0.3-0.7UnKettering Memorial Hospital Comment on above:Result Comment: Rivaroxaban and Apixaban will interfere with the anti Xa assay used to monitor UFH and LMWH.Performed By: #### [id number] ####[facility] ([facility])[address] [place], [place] [address]MAQGQGG UNFRACTIONATED (U/ML) IN PPP BY CHROMOGENIC METHOD>1.00Critically high0.3-0.7 [facility] HospitalComment on above:Result Comment: Rivaroxaban and Apixaban will interfere with the anti Xa assay used to monitor UFH and LMWH. Performed By: #### [id number] ####[facility] ([facility])[address] [place], [place] [address]REHEHRG UNFRACTIONATED (U/ML) IN PPP BY CHROMOGENIC METHOD >1.00Critically high0.3-0.7UnKettering Memorial HospitalComment on above: Performed By: #### [id number] ####[facility] ([facility])[address] [facility], [place] [address]AHDAdo 12-70-3971XJDEXNDBM PARTIAL THROMBOPLASTIN TIME IN PPP BY COAGULATION ASSAY99.6 RwdlyfjQjen90.0-35.0UnKettering Memorial HospitalComment on above:Result Comment: Clinical significance of the APTT is questionable in the presence of heparin.Performed By: #### [id number] ####[facility] ([facility])[address] [facility], [place] [address]GHYPBOXVA PARTIAL THROMBOPLASTIN TIME IN PPP BY COAGULATION ASSAY98.9 KobdwcyAmuc42.0-35.0 [facility] HospitalComment on above:Result Comment: Clinical significance of the APTT is questionable in the presence of heparin.Performed By: #### [id number] ####[facility] ([facility])[address] [place] [address] B-TYPE NATRIURETIC PEPTIDEon 47-58-2400Ixglqyyflwu peptide B (Bld) [Mass/Vol]75 pg/mLNormal0-100UnKettering Memorial HospitalComment on above:Performed By: #### [id number] ####[facility] ([facility])[address] [place] [address] BASIC METABOLIC PANELon 68-11-0335Rugeq gap [Moles/Vol]9 mmol/LNormal7-20 [facility] HospitalComment on above:Performed By: #### [id number] ####[facility] ([facility])[address] [place] [address]Xmsqyxd [Mass/Vol]8.8 mg/dLNormal8.6-10.3UnKettering Memorial HospitalComment on above:Performed By: #### [id number] ####[facility] ([facility])[address] [place] [address]Vmrykjsv [Moles/Vol]97 mmol/VSic32-469VvqbxdxsctKettering Memorial HospitalComment on above:Performed By: #### [id number] ####[facility] ([facility])[address] [place] [address]ZC2 [Moles/Vol]45 mmol/LCritically drsa84-74KibckkwgcgKettering Memorial HospitalComment on above:Performed By: #### [id number] ####[facility] ([facility])[address] [place], [place] [address]Nmszysjwae [Mass/Vol]0.93 mg/dLNormal0.70-1.30UnKettering Memorial HospitalComment on above:Performed By: #### [id number] ####[facility] ([facility])[address] [place], [place] [address]HHMIHLRREF FILTRATION RATE ML/MIN/1.73 SQ M.OLKACCCSG79.1 mL/min/1.73m*2Normal>60.0UnKettering Memorial HospitalComment on above: Result Comment: [facility]???s estimated glomerular filtration rate (eGFR) will [...] potential consequences that do not disproportionately affect anyone group of individuals.Performed By: #### [id number] ####[facility] ([facility])[address] [place], [place] [address]Nkbtchz [Mass/Vol]190 mg/rFTmqc71-167AfclcdycskKettering Memorial HospitalComment on above:Performed By: #### [id number] ####[facility] ([facility])[address] [place], [place] [address]Kiksssahi [Moles/Vol]3.5 mmol/L Normal3.5-5.1UnKettering Memorial HospitalComment on above:Performed By: #### [id number] ####[facility] ([facility])[address] [place] [address] Sodium [Moles/Vol]147 mmol/DEsxf118-093RwnhjxwlogKettering Memorial Hospital Comment on above:Performed By: #### [id number] ####[facility] ([facility])[address] [place], [place] [address]Ydus nitrogen [Mass/Vol]28 mg/dLHigh7-25UnKettering Memorial HospitalComment on above:Performed By: #### [id number] ####[facility] ([facility])[address] [place], [place] [address]YRAM NITROGEN/CREATININE (MASS RATIO) IN SER/PLAS30.1NormalUnKettering Memorial HospitalComment on above:Performed By: #### [id number] ####[facility] ([facility])[address] [place] [address]GWI WITH AUTO DIFFERENTIALon 43-71-1672Fvkvjoobp (Bld) [#/Vol]0.02 10*3/uLNormal0.00-0.20UnKettering Memorial HospitalComment on above:Performed By: #### [id number] ####[facility] ([facility])[address] [place], [place] [address]Hsdaywupo/100 WBC (Bld)0.2 %Normal0.0-1.0UnKettering Memorial HospitalComment on above:Performed By: #### [id number] ####[facility] ([facility])[address] [facility] [address]Jiinvxplaqh (Bld) [#/Vol]0.20 10*3/uL Normal0.00-0.50UnKettering Memorial HospitalComment on above:Performed By: #### [id number] ####[facility] ([facility])[address] [place] [address] Eosinophils/100 WBC (Bld)2.4 %Normal0.0-6.0UnKettering Memorial Hospital Comment on above:Performed By: #### [id number] ####[facility] ([facility])[address] [place], [place] [address]Fvcrgshmdwo distribution width (RBC) [Ratio]15.3 % High11.5-15.0UnKettering Memorial HospitalComment on above:Performed By: #### [id number] ####[facility] ([facility])[address] [place] [address] ERYTHROCYTE MEAN CORPUSCULAR HEMOGLOBIN CONCENTRATION (G/DL) BY VYWKKVEZZ34.0 g/dLLow32.0-35.0UnKettering Memorial HospitalComment on above:Performed By: #### [id number] ####[facility] ([facility])[address] [facility], [place] [address]Swdtynpzoc (Bld) [Volume fraction]49.7 %Qiehmv63.0-55.0UnKettering Memorial HospitalComment on above:Performed By: #### [id number] ####[facility] ([facility])[address] [place], [place] [address]Eljprabjzw (Bld) [Mass/Vol]14.9 g/dL Eanovs78.0-17.0UnKettering Memorial HospitalComment on above:Performed By: #### [id number] ####[facility] ([facility])[address] [place] [address] Immature granulocytes (Bld) [#/Vol]0.04 10*3/uLNormal0.00-0.20UnKettering Memorial HospitalComment on above:Performed By: #### [id number] ####[facility] ([facility])[address] [place], [place] [address]Qydqpxjb granulocytes/100 WBC (Bld)0.5 %Normal0.0-1.0UnKettering Memorial HospitalComment on above: Performed By: #### [id number] ####[facility] ([facility])[address] [place], [place] [address]Gqwhwgospal (Bld) [#/Vol]0.87 10*3/uLLow1.20-4.00UnKettering Memorial HospitalComment on above:Performed By: #### [id number] ####[facility] ([facility])[address] [place], [place] [address]Elmqobzgdyq/100 WBC (Bld) 10.5 %Low20.0-45.0UnKettering Memorial HospitalComment on above:Performed By: #### [id number] ####[facility] ([facility])[address] [place], [place] [address]ZCI (RBC) [Entitic mass]29.0 bpUqvgav93.0-33.0UnKettering Memorial HospitalComment on above:Performed By: #### [id number] ####[facility] ([facility])[address] [place], [place] [address]NNT (RBC) [Entitic vol]96.9 fLNormal 82.0-98.0UnKettering Memorial HospitalComment on above:Performed By: #### [id number] ####[facility] ([facility])[address] [place] [address] Monocytes (Bld) [#/Vol]1.21 10*3/uLHigh0.10-1.00UnKettering Memorial HospitalComment on above:Performed By: #### [id number] ####[facility] ([facility])[address] [place] [address]Tlbubudkf/100 WBC (Bld)14.6 %High 5.0-12.0UnKettering Memorial HospitalComment on above:Performed By: #### [id number] ####[facility] ([facility])[address] [place] [address] Neutrophils (Bld) [#/Vol]5.97 10*3/uLNormal1.60-7.60UnKettering Memorial HospitalComment on above:Performed By: #### [id number] ####[facility] ([facility])[address] [place] [address]Smhmguboouk/100 WBC (Bld)71.8 %Normal 40.0-72.0UnKettering Memorial HospitalComment on above:Performed By: #### [id number] ####[facility] ([facility])[address] [place] [address]WUVM (PER 100 WBCS) BY AUTOMATED COUNT0.0 %Siicwh6ShtluzmjdxKettering Memorial Hospital Comment on above:Performed By: #### [id number] ####[facility] ([facility])[address] [place], [place] [address]XUDLKOIVB (10*3/UL) IN BLOOD AUTOMATED [id number] 10*3/cYWjvuyw507-553HjrhpqlgsjKettering Memorial HospitalComment on above: Performed By: #### [id number] ####[facility] ([facility])[address] [place], [place] [address]WKG (Bld) [#/Vol]5.13 10*6/uLNormal4.20-5.70UnKettering Memorial HospitalComment on above:Performed By: #### [id number] ####[facility] ([facility])[address] [place] [address]XMO (Bld) [#/Vol]8.31 10*3/uLNormal4.00-10.60UnKettering Memorial HospitalComment on above: Performed By: #### [id number] ####[facility] ([facility])[address] [place] [address]DJUYOJOLLii 57-40-1416Bxrsmncdj [Mass/Vol]2.2 mg/dLNormal 1.9-2.7UnKettering Memorial HospitalComment on above:Performed By: #### [id number] ####[facility] ([facility])[address] [place] [address]Shtuxrmqg [Mass/Vol]1.8 mg/dLLow1.9-2.7UnKettering Memorial HospitalComment on above:Performed By: #### [id number] ####[facility] ([facility])[address] [place], [place] [address]Ixfhslysr [Mass/Vol]1.6 mg/dLLow1.9-2.7UnKettering Memorial HospitalComment on above:Performed By: #### [id number] ####[facility] ([facility])[address] [place] [address]BFCROJBZLVuk 68-66-3843Gxlndyahm [Mass/Vol]3.2 mg/dLNormal2.5-5.0UnKettering Memorial HospitalComment on above:Performed By: #### [id number] ####[facility] ([facility])[address] [place], [place] [address]CDMG GLUCOSE METER UNSOLICITED RESULTSon 01-43-0992Irateaj [Mass/Vol]184 mg/gVOxdt74-786WzhzdfoajbKettering Memorial HospitalComment on above:Order Comment: Waived Testing in the ED is performed under the ED CLIA certificate #[id number].Result Comment: uywpaht7Iihzuxhej By: #### [id number] ####[facility] ([facility])[address] [place] [address]Zeoeyil [Mass/Vol]191 mg/zMAjys01-822ZltxnshetsKettering Memorial HospitalComment on above:Order Comment: Waived Testing in the ED is performed under the ED CLIA certificate #[id number].Result Comment: yyhhxio9Gsmsrxcqj By: #### [id number] ####[facility] ([facility])[address] [place] [address]AWLUVMGATiv 11-32-4339Okxvuwnny [Moles/Vol]3.8 mmol/LNormal3.5-5.1UnKettering Memorial HospitalComment on above:Performed By: #### [id number] ####[facility] ([facility])[address] [place] [address]Wnplctjjp [Moles/Vol]3.7 mmol/LNormal 3.5-5.1UnKettering Memorial HospitalComment on above:Performed By: #### [id number] ####[facility] ([facility])[address] [place] [address] PROTIME-INRon 44-26-6390IAW IN PPP BY COAGULATION ASSAY1.40Lmdo9.90-1.10 [facility] HospitalComment on above:Result Comment: [facility] RECOMMENDED INR FOR WARFARIN THERAPY CONDITION INRPROPHYLAXIS OF VENOUS THROMBOSIS 2-3(HIGH-RISK SURGERY)TREATMENT OF VENOUS THROMBOSIS 2-3TREATMENT OF PULMONARY EMBOLISM 2-3PREVENTION OF SYSTEMIC EMBOLISM: 2-3 ACUTE MYOCARDIAL INFARCTION TISSUE HEART VALVES VALVULAR HEART DISEASE ATRIAL FIBRILLATION RECURRENT SYSTEMIC EMBOLISMMECHANICAL HEART VALVE 2.5-3.5 FROM: ORAL ANTICOAGULANTS. MECHANISM OF ACTION, CLINICAL EFFECTIVENESS, AND OPTIMAL THERAPE UTIC RANGE. CHEST 1995;108:231S-246S.Performed By: #### [id number] ####[facility] ([facility])[address] [place], [place] [address]GMOPEUOEKEP TIME (PT) IN PPP BY COAGULATION ASSAY15.0 HefzvtkSsis86.3-14.8UnKettering Memorial HospitalComment on above:Performed By: #### [id number] ####[facility] ([facility])[address] [place], [place] [address]XAZ IN PPP BY COAGULATION ASSAY1.19 High0.90-1.10UnKettering Memorial HospitalComment on above:Result Comment: [facility] RECOMMENDED INR FOR WARFARIN THERAPY CONDITION INRPROPHYLAXIS OF VENOUS THROMBOSIS 2-3(HIGH-RISK SURGERY)TREATMENT OF VENOUS THROMBOSIS 2-3TREATMENT OF PULMONARY EMBOLISM 2-3PREVENTION OF SYSTEMIC EMBOLISM: 2-3 ACUTE MYOCARDIAL INFARCTION TISSUE HEART VALVES VALVULAR HEART DISEASE ATRIAL FIBRILLATION RECURRENT SYSTEMIC EMBOLISMMECHANICAL HEART VALVE 2.5-3.5 FROM: ORAL ANTICOAGULANTS. MECHANISM OF ACTION, CLINICAL EFFECTIVENESS, AND OPTIMAL THERAPE UTIC RANGE. CHEST 1995;108:231S-246S.Performed By: #### [id number] ####[facility] ([facility])[address] [place], [place] [address]WBMNJXLBGFN TIME (PT) IN PPP BY COAGULATION ASSAY15.1 GpbxxqwGkgj86.3-14.8UnKettering Memorial HospitalComment on above:Performed By: #### [id number] ####[facility] ([facility])[address] [place] [address]ENLRTDASPVASTfx 37-96-2641NPKNWYW? UnknownNormalUniversMedina HospitalComment on above:Performed By: #### [id number] ####[facility] ([facility])[address] [place] [address] Magnesium [Mass/Vol]119 mg/yYFrlzvr43-877YjffzapoviKettering Memorial Hospital Comment on above:Result Comment: TRIGLYCERIDE REFERENCE RANGE:20 YEARS AND OLDER CARDIOVASCULAR RISKLESS THAN 150 mg/dL LOW HESE439 TO 199 mg/dL BORDERLINE QTEQ110 mg/dL AND GREATER HIGH RISKPerformed By: #### [id number] ####[facility] ([facility])[address] [place] [address]VPZNCILB Ion 93-99-8369Hhqnqmyh I.cardiac [Mass/Vol]0.04 ng/mLNormal0.00-0.04UnKettering Memorial Hospital Comment on above:Performed By: #### [id number] ####[facility] ([facility])[address] [place], [place] [address]Xachukze I.cardiac [Mass/Vol]0.04 ng/mLNormal 0.00-0.04UnKettering Memorial HospitalComment on above:Performed By: #### [id number] ####[facility] ([facility])[address] [place] [address] VANCOMYCIN, TROUGHon 10-70-6510KKVZSXLZRF (UG/ML) IN SER/PLAS - DDLCMF77.6 ug/mL Critically high5.0-20.0UnKettering Memorial HospitalComment on above: Performed By: #### [id number] ####[facility] ([facility])[address] [place], [place] [address]UQVCG METABOLIC PANELon 27-27-4320Qinoo gap [Moles/Vol]11 mmol/LNormal 7-20UnKettering Memorial HospitalComment on above:Performed By: #### [id number] ####[facility] ([facility])[address] [place], [place] [address]Pjwicba [Mass/Vol]8.9 mg/dLNormal8.6-10.3UnKettering Memorial HospitalComment on above:Performed By: #### [id number] ####[facility] ([facility])[address] [place] [address]Gjhzpufn [Moles/Vol]99 mmol/KUyorpu55-654GkauiuzgkdKettering Memorial HospitalComment on above:Performed By: #### [id number] ####[facility] ([facility])[address] [place] [address]GM1 [Moles/Vol]38 mmol/HQmon18-27 [facility] HospitalComment on above:Performed By: #### [id number] ####[facility] ([facility])[address] [place] [address]Zxwzemwnzy [Mass/Vol]1.10 mg/dLNormal0.70-1.30UnKettering Memorial HospitalComment on above:Performed By: #### [id number] ####[facility] ([facility])[address] [place] [address]ENZUVZKDQE FILTRATION RATE ML/MIN/1.73 SQ M.XCVDFWGNS52.5 mL/min/1.73m*2Normal>60.0UnKettering Memorial HospitalComment on above: Result Comment: [facility]???s estimated glomerular filtration rate (eGFR) will [...] potential consequences that do not disproportionately affect anyone group of individuals.Performed By: #### [id number] ####[facility] ([facility])[address] [place] [address]Nnncaop [Mass/Vol]202 mg/dXGmuk87-557NgjpdrxexgKettering Memorial HospitalComment on above:Performed By: #### [id number] ####[facility] ([facility])[address] [place] [address]Zmsdrvvib [Moles/Vol]3.3 mmol/L Low3.5-5.1UnKettering Memorial HospitalComment on above:Performed By: #### [id number] ####[facility] ([facility])[address] [address]Qacnxj [Moles/Vol]145 mmol/BAqfqmg180-808LtwheehyxnKettering Memorial HospitalComment on above:Performed By: #### [id number] ####[facility] ([facility])[address] [place], [place] [address]Ndsq nitrogen [Mass/Vol]38 mg/dLHigh7-25UnKettering Memorial HospitalComment on above:Performed By: #### [id number] ####[facility] ([facility])[address] [place], [place] [address]HPBN NITROGEN/CREATININE (MASS RATIO) IN SER/PLAS34.5NormalUniversMedina HospitalComment on above: Performed By: #### [id number] ####[facility] ([facility])[address] [place], [place] [address]SXFYWVE, IONIZEDon 07-66-1109KYZUXFP IONIZED (MMOL/L) IN BLOODNormal [facility] HospitalComment on above:Result Comment: C^IncalculablePerformed By: #### CALCIUM, IONIZED ####[facility] [id number] [place] [address] USACBC WITH AUTO DIFFERENTIALon 76-58-1457Fajdsvedcrl distribution width (RBC) [Ratio]15.1 %High11.5-15.0 [facility] HospitalComment on above:Performed By: #### [id number] ####[facility] ([facility])[address] [place], [place] [address]SDSJJZJFKTY MEAN CORPUSCULAR HEMOGLOBIN CONCENTRATION (G/DL) BY VHZEKXTUO06.9 g/dLLow32.0-35.0 [facility] HospitalComment on above:Performed By: #### [id number] ####[facility] ([facility])[address] [place] [address]Qetixkubrp (Bld) [Volume fraction]52.1 %Gmytae33.0-55.0UnKettering Memorial Hospital Comment on above:Performed By: #### [id number] ####[facility] ([facility])[address] [place] [address]Rirtgqrsac (Bld) [Mass/Vol]16.1 g/oXRpsypw77.0-17.0 [facility] HospitalComment on above:Performed By: #### [id number] ####[facility] ([facility])[address] [place] [address]FNU (RBC) [Entitic mass]29.4 yxQzrywn05.0-33.0UnKettering Memorial HospitalComment on above:Performed By: #### [id number] ####[facility] ([facility])[address] [place] [address]NDP (RBC) [Entitic vol]95.1 kWRsznfi05.0-98.0UnKettering Memorial HospitalComment on above:Performed By: #### [id number] ####[facility] ([facility])[address] [place] [address]DPGO (PER 100 WBCS) BY AUTOMATED COUNT0.0 %Hgfiww7HtwwsgemirKettering Memorial HospitalComment on above: Performed By: #### [id number] ####[facility] ([facility])[address] [place] [address]LCLORIXXF (10*3/UL) IN BLOOD AUTOMATED [id number] 10*3/uLNormal 150-400UnKettering Memorial HospitalComment on above:Performed By: #### [id number] ####[facility] ([facility])[address] [place] [address]ZEM (Bld) [#/Vol]5.48 10*6/uLNormal4.20-5.70UnKettering Memorial Hospital Comment on above:Performed By: #### [id number] ####[facility] ([facility])[address] [place] [address]WBV (Bld) [#/Vol]9.57 10*3/uLNormal4.00-10.60 [facility] HospitalComment on above:Performed By: #### [id number] ####[facility] ([facility])[address] [place] [address]GXTXIPSgn 36-44-3294ESUMWIVZceznpIviipdgkyb of [facility]edo Medical CenterCONSULTNormal [facility] HospitalCTA CHEST W IV CONTRASTon 08-64-8526TCV CHEST W IV CONTRASTInvalid Interpretation CodeUnKettering Memorial Hospital MAGNESIUMon 41-15-3060Egrspcvgg [Mass/Vol]1.9 mg/dLNormal1.9-2.7UnKettering Memorial HospitalComment on above:Performed By: #### [id number] ####[facility] ([facility])[address] [place], [place] [address]Qlezaggtf [Mass/Vol]1.7 mg/dLLow1.9-2.7UnKettering Memorial HospitalComment on above:Performed By: #### [id number] ####[facility] ([facility])[address] [place] [address] MANUAL DIFFERENTIALon 60-37-0036DVMSOFOAI (10*3/UL) IN BLOOD BY CALCULATION0.02 10*3/uLNormal0.00-0.20UnKettering Memorial HospitalComment on above: Performed By: #### [id number] ####[facility] ([facility])[address] [place], [place] [address]KNPPKAYDM/100 LEUKOCYTES IN BLOOD BY AUTOMATED COUNT0.2 % Normal0.0-1.0UnKettering Memorial HospitalComment on above:Performed By: #### [id number] ####[facility] ([facility])[address] [place] [address] EOSINOPHILS (10*3/UL) IN BLOOD BY CALCULATION0.10 10*3/uLNormal0.00-0.50 [facility] HospitalComment on above:Performed By: #### [id number] ####[facility] ([facility])[address] [place], [place] [address]FZUBZTJFZEK/100 LEUKOCYTES IN BLOOD BY AUTOMATED COUNT1.0 %Normal0.0-6.0UnKettering Memorial HospitalComment on above:Performed By: #### [id number] ####[facility] ([facility])[address] [place], [place] [address]MKPQRAFH GRANULOCYTES (10*3/UL) IN BLOOD BY CALCULATION0.06 10*3/uLNormal0.00-0.20UnKettering Memorial HospitalComment on above:Performed By: #### [id number] ####[facility] ([facility])[address] [place], [place] [address]QLZEXYXW GRANULOCYTES/100 LEUKOCYTES IN BLOOD BY AUTOMATED COUNT0.6 %Normal0.0-1.0UnK[facility]tering Memorial Hospital Comment on above:Performed By: #### [id number] ####[facility] ([facility])[address] [place], [place] [address]QNVNDBHJIPT (10*3/UL) IN BLOOD BY CALCULATION0.73 10*3/uLLow1.20-4.00UnKettering Memorial HospitalComment on above:Performed By: #### [id number] ####[facility] ([facility])[address] [place], [place] [address]ENVHSULOLBN/100 LEUKOCYTES IN BLOOD BY AUTOMATED COUNT7.6 %Low20.0-45.0 [facility] HospitalComment on above:Performed By: #### [id number] ####[facility] ([facility])[address] [place], [place] [address]AZUFIGJAA (10*3/UL) IN BLOOD BY CALCUATION1.52 10*3/uLHigh0.10-1.00UnKettering Memorial HospitalComment on above:Performed By: #### [id number] ####[facility] ([facility])[address] [place], [place] [address]NGBIFBKSR/100 LEUKOCYTES IN BLOOD BY AUTOMATED COUNT15.9 %High5.0-12.0UnKettering Memorial HospitalComment on above:Performed By: #### [id number] ####[facility] ([facility])[address] [place] [address]DPGRNSQRVGO (10*3/UL) IN BLOOD BY CALCULATION7.1 10*3/uL Normal1.6-7.6UnKettering Memorial HospitalComment on above:Performed By: #### [id number] ####[facility] ([facility])[address] [place] [address] NEUTROPHILS/100 LEUKOCYTES IN BLOOD BY AUTOMATED COUNT74.7 %High40.0-72.0 [facility] HospitalComment on above:Performed By: #### [id number] ####[facility] ([facility])[address] [place] [address]LFFGGUGFHEvv 74-03-4849Grzxofzfq [Mass/Vol]3.8 mg/dLNormal2.5-5.0UnKettering Memorial HospitalComment on above:Performed By: #### [id number] ####[facility] ([facility])[address] [place] [address]Uaijucxvj [Mass/Vol]1.8 mg/dLLow 2.5-5.0UnKettering Memorial HospitalComment on above:Performed By: #### [id number] ####[facility] ([facility])[address] [place] [address]NCAK GLUCOSE METER UNSOLICITED RESULTSon 80-43-0331Urdkkoa [Mass/Vol]189 mg/dLHigh 70-105UnKettering Memorial HospitalComment on above:Order Comment: Waived Testing in the ED is performed under the ED CLIA certificate #[id number].Result Comment: [email or web address] By: #### [id number] ####[facility] ([facility])[address] [place] [address]Unnupny [Mass/Vol]205 mg/kZDmzk99-202TeyalwaorlKettering Memorial HospitalComment on above:Order Comment: Waived Testing in the ED is performed under the ED CLIA certificate #[id number].Result Comment: rgill Performed By: #### [id number] ####[facility] ([facility])[address] [place], [place] [address]Llrqfvl [Mass/Vol]200 mg/aTVbxc37-232GqrdwfefrdKettering Memorial HospitalComment on above:Order Comment: Waived Testing in the ED is performed under the ED CLIA certificate #[id number].Result Comment: ezabors2 Performed By: #### [id number] ####[facility] (BEAKER)[address] [place], [place] [address]Gfscqea [Mass/Vol]207 mg/rNVbop37-699NzxtyclvbqKettering Memorial HospitalComment on above:Order Comment: Waived Testing in the ED is performed under the ED CLIA certificate #[id number].Result Comment: oyoder Performed By: #### [id number] ####[facility] (AKER)[address] [place], [place] [address]CVCTKBNKEwm 04-36-3600Qsevgzawo [Moles/Vol]3.3 mmol/LLow 3.5-5.1UnKettering Memorial HospitalComment on above:Performed By: #### [id number] ####[facility] ([facility])[address] [place], [place] [address]Ktxfyqwqh [Moles/Vol]3.5 mmol/LNormal3.5-5.1UnKettering Memorial HospitalComment on above:Performed By: #### [id number] ####[facility] (BEAKER)[address] [place], [place] [address]TNCVAMBFN, WHOLE BLOODon 69-55-0499Hbpybxttc [Moles/Vol]3.5 mmol/LNormal3.5-5.1UnKettering Memorial HospitalComment on above:Performed By: #### POTASSIUM, WHOLE BLOOD ####[facility]PIR[facility] [id number] [place] [address] USASODIUM, WHOLE BLOODon 63-71-4117PJXAHD, WHOLE BLOODNormal [facility] HospitalComment on above:Result Comment: C^IncalculablePerformed By: #### SODIUM, WHOLE BLOOD ####[facility] [id number] [place] [address] USATRIGLYCERIDESon 27-28-6589HMDRZRH? UnknownNormalUniTrumbull Memorial HospitalComment on above:Performed By: #### [id number] ####[facility] (BEAKER)[address] [place] [address] Magnesium [Mass/Vol]243 mg/qDOhaa79-585HhtdwogtmjKettering Memorial Hospital Comment on above:Result Comment: TRIGLYCERIDE REFERENCE RANGE:20 YEARS AND OLDER CARDIOVASCULAR RISKLESS THAN 150 mg/dL LOW KURP157 TO 199 mg/dL BORDERLINE MFYU834 mg/dL AND GREATER HIGH RISKPerformed By: #### [id number] ####[facility] ([facility])[address] [place], [place] [address]xm 75-47-110744TrfhslTuyomaktec of [place] Medical Lcdijo70FszzmoFpolkxoxkmMedina HospitalBLOOD CULTURE on 45-31-9240Fokqjvtl identified Cx Nom (Bld)No growth at 5 daysNoalUniTrumbull Memorial HospitalComment on above:Order Comment: From a different site than #1.Performed By: #### [id number] ####[facility] (BEAKER)[address] [place], [place] [address]Zswvwdyrn Auto (Bld) [#/Vol]on 53-98-3775Bkitxcoyq (Bld) [#/Vol]Automated basophil count0.0-0.1FCleveland Clinic Basophils/100 WBC Auto (Bld)on 51-57-1106Ecqijhshe/100 WBC (Bld)Automated basophil %Low0.2-2.0[facility] Medical CenterCALCIUM, IONIZEDon 69-99-9161PJKBKQQ IONIZED (MMOL/L) IN BLOOD1.23 mmol/LNormal1.15-1.33UnKettering Memorial HospitalComment on above:Performed By: #### CALCIUM, IONIZED ####[facility] RESPIR[facility] [id number] [place] [address] USACBC WITH AUTO DIFFERENTIALon 87-07-5817Zoaqujotu (Bld) [#/Vol]0.01 10*3/uLNormal0.00-0.20 [facility] HospitalComment on above:Performed By: #### [id number] ####[facility] (BEAKER)[address] [place], [place] [address]Wesgndkzp/100 WBC (Bld)0.1 %Normal0.0-1.0UnKettering Memorial HospitalComment on above: Performed By: #### [id number] ####[facility] (BEAKER)[address] [place], [place] [address]Dlklqnblknm (Bld) [#/Vol]0.01 10*3/uLNormal0.00-0.50 [facility] HospitalComment on above:Performed By: #### [id number] ####[facility] (BEAKER)[address] [place], [place] [address]Lwmwwnbokgz/100 WBC (Bld)0.1 %Normal0.0-6.0UnKettering Memorial HospitalComment on above: Performed By: #### [id number] ####[facility] (AKER)[address] [place], [place] [address]Sxztspuadtv distribution width (RBC) [Ratio]15.2 %High 11.5-15.0UnKettering Memorial HospitalComment on above:Performed By: #### [id number] ####[facility] (BEAKER)[address] [place] [address] ERYTHROCYTE MEAN CORPUSCULAR HEMOGLOBIN CONCENTRATION (G/DL) BY UMGUQUUPO14.8 g/pIYdckyg76.0-35.0UnKettering Memorial HospitalComment on above:Performed By: #### [id number] ####[facility] (BEAKER)[address] [place], [place] [address]Tfacrjmxjt (Bld) [Volume fraction]47.1 %Lsteov03.0-55.0UnKettering Memorial HospitalComment on above:Performed By: #### [id number] ####[facility] (BEAKER)[address] [place], [place] [address]Hplsxuascw (Bld) [Mass/Vol]15.9 g/dL Ucoepf81.0-17.0UnKettering Memorial HospitalComment on above:Performed By: #### [id number] ####[facility] ([facility])[address] [place] [address] Immature granulocytes (Bld) [#/Vol]0.05 10*3/uLNormal0.00-0.20UnKettering Memorial HospitalComment on above:Performed By: #### [id number] ####[facility] ([facility])[address] [place], [place] [address]Ayhyiilv granulocytes/100 WBC (Bld)0.7 %Normal0.0-1.0UnKettering Memorial HospitalComment on above: Performed By: #### [id number] ####[facility] ([facility])[address] [place], [place] [address]Fzvkukvigyc (Bld) [#/Vol]0.54 10*3/uLLow1.20-4.00UnKettering Memorial HospitalComment on above:Performed By: #### [id number] ####[facility] ([facility])[address] [place], [place] [address]Gxkhvmhuocs/100 WBC (Bld) 7.2 %Low20.0-45.0UnKettering Memorial HospitalComment on above:Performed By: #### [id number] ####[facility] ([facility])[address] [place], [place] [address]NBT (RBC) [Entitic mass]31.8 suYvukbx59.0-33.0UnKettering Memorial HospitalComment on above:Performed By: #### [id number] ####[facility] ([facility])[address] [place], [place] [address]OBZ (RBC) [Entitic vol]94.2 fLNormal 82.0-98.0UnKettering Memorial HospitalComment on above:Performed By: #### [id number] ####[facility] ([facility] [place] [address] Monocytes (Bld) [#/Vol]1.23 10*3/uLHigh0.10-1.00UnKettering Memorial HospitalComment on above:Performed By: #### [id number] ####[facility] (BEAKER)[address] [place] [address]Tueuzfoge/100 WBC (Bld)16.3 %High 5.0-12.0UnKettering Memorial HospitalComment on above:Performed By: #### [id number] ####[facility] (BEAKER)[address] [place] [address] Neutrophils (Bld) [#/Vol]5.70 10*3/uLNormal1.60-7.60UnKettering Memorial HospitalComment on above:Performed By: #### [id number] ####[facility] ([facility])[address] [place] [address]Dgqgqpvwejr/100 WBC (Bld)75.6 %High 40.0-72.0UnKettering Memorial HospitalComment on above:Performed By: #### [id number] ####[facility] ([facility])[address] [place] [address]BTDD (PER 100 WBCS) BY AUTOMATED COUNT0.3 %Qvlc8QlhwpdtzwxKettering Memorial Hospital Comment on above:Performed By: #### [id number] ####[facility] (BEAKER)[address] [place] [address]JZKVHVJKG (10*3/UL) IN BLOOD AUTOMATED FKFKE297 10*3/mMIysfci264-785FjycqwjqluKettering Memorial HospitalComment on above: Performed By: #### [id number] ####[facility] (BEAKER)[address] [place] [address]PXH (Bld) [#/Vol]5.00 10*6/uLNormal4.20-5.70UnKettering Memorial HospitalComment on above:Performed By: #### [id number] ####[facility] (BEAKER)[address] [place], [place] [address]FDH (Bld) [#/Vol]7.54 10*3/uLNormal4.00-10.60UnKettering Memorial HospitalComment on above: Performed By: #### [id number] ####[facility] ([facility])[address] [place], [place] [address]JPOCNWCNTXPML METABOLIC PANELon 90-70-5889Nfucqqr [Mass/Vol] 2.9 g/dLLow3.5-5.7UnKettering Memorial HospitalComment on above:Performed By: #### [id number] ####[facility] ([facility])[address] [place] [address] ALP [Catalytic activity/Vol]58 U/QSsnvtl43-674OvyysyzoyoKettering Memorial HospitalComment on above:Performed By: #### [id number] ####[facility] ([facility])[address] [place], [place] [address]EHY [Catalytic activity/Vol]21 U/L Normal7-52UnKettering Memorial HospitalComment on above:Performed By: #### [id number] ####[facility] ([facility])[address] [place], [place] [address]Mrqbn gap [Moles/Vol]13 mmol/LNormal7-20UnKettering Memorial HospitalComment on above:Performed By: #### [id number] ####[facility] ([facility])[address] [place], [place] [address]OFW [Catalytic activity/Vol]29 U/XWkbehu40-54WxiyhoovphKettering Memorial HospitalComment on above:Performed By: #### [id number] ####[facility] ([facility])[address] [place], [place] [address]Fzaofhrqf [Mass/Vol]1.0 mg/dL Normal0.3-1.0UnKettering Memorial HospitalComment on above:Performed By: #### [id number] ####[facility] ([facility])[address] [place] [address] Calcium [Mass/Vol]8.2 mg/dLLow8.6-10.3UnKettering Memorial HospitalComment on above:Performed By: #### [id number] ####[facility] (BEAKER)[address] [place] [address]Cxxjlatl [Moles/Vol]90 mmol/LWtl60-056JijwxqjnokKettering Memorial HospitalComment on above:Performed By: #### [id number] ####[facility] ([facility])[address] [place] [address]SP4 [Moles/Vol]32 mmol/TBlos10-95 [facility] HospitalComment on above:Performed By: #### [id number] ####[facility] ([facility])[address] [place], [place] [address]Gyoiijfyra [Mass/Vol]1.17 mg/dLNormal0.70-1.30UnKettering Memorial HospitalComment on above:Performed By: #### [id number] ####[facility] ([facility])[address] [place], [place] [address]ZOPAVMXILJ FILTRATION RATE ML/MIN/1.73 SQ M.WGVRORALA19.2 mL/min/1.73m*2Normal>60.0UnKettering Memorial HospitalComment on above: Result Comment: The [facility]???s estimated glomerular filtration rate (eGFR) will [...] potential consequences that do not disproportionately affect anyone group of individuals.Performed By: #### [id number] ####[facility] ([facility])[address] [place], [place] [address]Dvhnjeh [Mass/Vol]219 mg/mSQomi66-838CmdxjfnilaKettering Memorial HospitalComment on above:Performed By: #### [id number] ####[facility] ([facility])[address] [place], [place] [address]Bzxbgcqxu [Moles/Vol]4.0 mmol/L Normal3.5-5.1UnKettering Memorial HospitalComment on above:Performed By: #### [id number] ####[facility] ([facility])[address] [place] [address] Protein [Mass/Vol]5.5 g/dLLow6.0-8.3UnKettering Memorial HospitalComment on above:Performed By: #### [id number] ####[facility] ([facility])[address] [place], [place] [address]Zsybgb [Moles/Vol]131 mmol/JHdv248-426RibfomwptuKettering Memorial HospitalComment on above:Performed By: #### [id number] ####[facility] ([facility])[address] [place], [place] [address]Mlxv nitrogen [Mass/Vol]42 mg/dLHigh 7-25UnKettering Memorial HospitalComment on above:Performed By: #### [id number] ####[facility] ([facility])[address] [place], [place] [address]PCYH NITROGEN/CREATININE (MASS RATIO) IN SER/PLAS35.9NormalUniversMedina HospitalComment on above:Performed By: #### [id number] ####[facility] ([facility])[address] [place], [place] [address]Tiowogrnxyp/100 WBC Auto (Bld)on 54-97-8887Ufbctlikewp/100 WBC (Bld)Automated eosinophil %Low0.9-7.0[facility] CenterErythrocyte distribution width Auto (RBC) [Ratio]on 63-51-9718Bpccvvnckfd distribution width (RBC) [Ratio]Erythrocyte distribution width [Ratio] by Automated brvbwNcyj21.0-15.0[facility] Estimated glomerular filtration rate (GFR) non- Americanon 08-15-2024 GFR/1.73 sq M.predicted among non-blacks MDRD (S/P/Bld) [Vol rate/Area]Estimated glomerular filtration rate (GFR) non- AmericanLow>=60 mL/min/1.73m 2 [facility] CenterGlobulin Calc (S) [Mass/Vol]on 08-15-2024 Globulin (S) [Mass/Vol]Serum globulin measurement by calculation (mass/volume) [facility] CenterHEMOGLOBIN A1Con 67-08-0656Emjptbf [Mass/Vol] 189 mg/dLNormalUniTrumbull Memorial HospitalComment on above:Performed By: #### [id number] ####[facility] (BEAKER)[address] [place] [address] HbA1c (Bld) [Mass fraction]8.2 %High4.0-6.0UnKettering Memorial Hospital Comment on above:Performed By: #### [id number] ####[facility] ([facility])[address] [place], [place] [address]PXgj 63-34-9782NAJxmgeaVutdsstempTrumbull Memorial HospitalHematocrit Auto (Bld) [Volume fraction]on 02-87-2280Esyahnlnxx (Bld) [Volume fraction]Hematocrit [Volume Fraction] of Blood by Automated count 42.0-54.0[facility] CenterHemoglobin [Mass/volume] in Bloodon 37-40-0629Oixlyadcvo (Bld) [Mass/Vol]Hemoglobin [Mass/volume] in Blood14.0-18.0 [facility] CenterLIPASEon 58-98-9267LSCFLN (U/L) IN SER/PLAS28 U/ODzkten22-70HwrfgwkpegKettering Memorial HospitalComment on above:Result Comment: M-CHEMISTRY SPECIMEN MODERATELY HEMOLYZED RESULTS MAY NOT BE ACCURATE Performed By: #### [id number] ####[facility] ([facility])[address] [place], [place] [address]Kaifugnslk - Chemistry and Chemistry - challengeon 83-10-4025LRJ1 (Bld) [Moles/Vol]34.7 mmol/LHigh22.0-26.0[facility] CenterAlbumin [Mass/Vol]2.6 g/dLLow3.4-5.0[facility] CenterALP [Catalytic activity/Vol]81 U/S76-595AbxqeiqmeUpper Valley Medical CenterALT [Catalytic activity/Vol]37 U/J74-75Tnqonlmdt Regional Medical CenterAST [Catalytic activity/Vol]28 U/Y75-73XpdijikpaUpper Valley Medical CenterBilirubin [Mass/Vol]1.2 mg/dLHigh0.2-1.0[facility] CenterCalcium [Mass/Vol]9.2 mg/dL 8.5-10.1FCleveland ClinicChloride [Moles/Vol]101 mmol/L98-107 [facility] CenterCO2 [Moles/Vol]35.4 mmol/LHigh21.0-32.0 [facility] CenterCreatinine [Mass/Vol]1.66 mg/dLHigh0.70-1.30 [facility] CenterGFR/1.73 sq M.predicted MDRD (S/P/Bld) [Vol rate/Area]51 mL/min/{1.73_m2}Low>=60 mL/min/1.73m 2FCleveland ClinicGlucose [Mass/Vol]268 mg/hVRunp12-054OaemkcgglUpper Valley Medical Center Potassium [Moles/Vol]3.8 mmol/L3.5-5.1FCleveland ClinicProtein [Mass/Vol]6.3 g/dLLow6.4-8.2FRegency Hospital Cleveland Eastodium [Moles/Vol] 143 mmol/Q059-592GutijueloUpper Valley Medical CenterUrea nitrogen [Mass/Vol]52.0 mg/dLHigh7.0-18.0[facility] Medical CenterUrea nitrogen/Creatinine [Mass ratio]31.3 mg/mgUpper Valley Medical CenterLaboratory - Hematology and Cell countson 45-33-7966Rdwiklim granulocytes/100 WBC (Bld)0.8 %High0.0-0.5 [facility] CenterLeukocytes [#/volume] corrected for nucleated erythrocytes in Blood by Automated counon 38-71-2488IXD corrected for nucl RBC Auto (Bld) [#/Vol]Leukocytes [#/volume] corrected for nucleated erythrocytes in Blood by Automated coun4.0-11.0[facility] CenterLymphocytes Auto (Bld) [#/Vol]on 82-44-3128Uiwpntktbko (Bld) [#/Vol]Lymphocytes [#/volume] in Blood by Automated countLow1.2-3.8[facility] Lymphocytes/100 WBC Auto (Bld)on 23-83-4697Dixskddfeeg/100 WBC (Bld) Lymphocytes/100 leukocytes in Blood by Automated kgulbYau76.5-60.0[facility] CenterMAGNESIUMon 70-90-4584Bktirnezt [Mass/Vol]1.6 mg/dLLow 1.9-2.7[facility] Orrville HospitalComment on above:Performed By: #### [id number] ####[facility] (BEAKER)[address] [place], [place] [address]RNY Auto (RBC) [Entitic mass]on 46-00-0256EUD (RBC) [Entitic mass]MCH [Entitic mass] by Automated count25.9-34.0[facility] Medical CenterMCHC Auto (RBC) [Mass/Vol]on 81-53-4391MIZP (RBC) [Mass/Vol]MCHC [Mass/volume] by Automated count29.9-35.2FCleveland ClinicMCV Auto (RBC) [Entitic vol]on 30-00-4645VAQ (RBC) [Entitic vol]MCV [Entitic volume] by Automated count 80.0-94.0[facility] CenterMRSA/MSSA DNA NASALon 86-03-9930CVYJ DNANegativeNormalNegativeAultman Orrville HospitalComment on above: Order Comment: Testing methodology is an automated qualitative in vitro diagnostic test for the directdetection and differentiation of Staphylococcus aureus (SA) DNA and methicillin-resistant Staphylococcus aureus (MRSA) DNA from nasal swabs in patients at risk for nasal colonization. The test utilizes real- time polymerase chain reaction (PCR) for the amplification of MRSA/SA DNA and fluorogenic target-specific hybridization probes for the detection of the amplified DNA. A negative result does not preclude nasal colonization.Performed By: #### [id number] ####[facility] (BEAKER)[address] [place], [place] [address]CWYI DNANegativeNormalNegativeUnKettering Memorial HospitalComment on above:Order Comment: Testing methodology is an automated qualitative in vitro diagnostic test for the directdetection and differentiation of Staphylococcus aureus (SA) DNA and methicillin-resistant Staphylococcus aureus (MRSA) DNA from nasal swabs in patients at risk for nasal colonization. The test utilizes real- time polymerase chain reaction (PCR) for the amplification of MRSA/SA DNA and fluorogenic target-specific hybridization probes for the detection of the amplified DNA. A negative result does not preclude nasal colonization.Performed By: #### [id number] ####[facility] (BEAKER)[address] [place], [place] [address]Tmpllsgco Auto (Bld) [#/Vol]on 75-05-3497Pppqmnblr (Bld) [#/Vol]Automated blood monocyte count0.3-0.8[facility] CenterMonocytes/100 WBC Auto (Bld)on 22-85-3526Vfquceizw/100 WBC (Bld)Automated monocyte %1.7-12.0 [facility] Medical CenterNeutrophils Auto (Bld) [#/Vol]on 08-15-2024 Neutrophils (Bld) [#/Vol]Neutrophils [#/volume] in Blood by Automated count 1.4-6.5FCleveland ClinicNeutrophils/100 WBC Auto (Bld)on 04-76-6038Uqabpwmvwvm/100 WBC (Bld)Automated neutrophil %High43.0-75.0[facility] CenterNo Panel Informationon 24-02-8665Zzuhw TestPositive POSITIVEUpper Valley Medical CenterArterial Blood Base Rfvpot42.0 mmol/L High<2.0-2.0[facility] Medical CenterArterial Blood Oxygen Saturation 97.0 %[facility] Medical CenterArterial Blood Partial Pressure CO247.8 mm[Hg]High35.0-45.0[facility] Medical CenterArterial Blood Partial Pressure O281.0 mm[Hg]80.0-100.0[facility] Medical CenterArterial Blood pH7.746Tqhf4.350-7.450[facility] Medical CenterBlood Gas IDTA6WzbsffstiUpper Valley Medical CenterBlood Gas Sample SiteRIGHT RADIALUpper Valley Medical CenterBlood Gas Set Respiration Hrer50IhqmzqwbkUpper Valley Medical Center Blood Gas Tidal Xjksrg973BgxfgubdhUpper Valley Medical CenterBlood Gas Ventilator ModeAC/VCUpper Valley Medical CenterFiO290 %[facility] CenterOxygen Delivery DeviceVENTUpper Valley Medical CenterReference Lab Test #2 Ddahua32.8[facility] CenterEosinophils # (Auto)0.0 10 3/uL0.0-0.7FCleveland ClinicImmature Granulocyte # (Auto)0.06 10 3/uLHigh0.00-0.03[facility] CenterPHOSPHORUSon 08-15-2024 Magnesium [Mass/Vol]2.7 mg/dLNormal2.5-5.0UnKettering Memorial Hospital Comment on above:Performed By: #### [id number] ####[facility] (BEAKER)[address] [place], [place] [address]NGIG GLUCOSE METER UNSOLICITED RESULTSon 08-15-2024 Glucose [Mass/Vol]249 mg/iLQfcb49-541QofioowuilKettering Memorial HospitalComment on above:Order Comment: Waived Testing in the ED is performed under the ED CLIA certificate #[id number].Result Comment: oyoderPerformed By: #### [id number] ####[facility] (BEAKER)[address] [place] [address]Xuaxfmw [Mass/Vol]217 mg/nUOtei15-714UorikhidlgKettering Memorial HospitalComment on above:Order Comment: Waived Testing in the ED is performed under the ED CLIA certificate #[id number].Result Comment: wxdchjn0Gkjmmmjoi By: #### [id number] ####[facility] (BEAKER)[address], [place] [address]Zrkqocf [Mass/Vol]233 mg/gGDgwv32-422HrfbdgnvojKettering Memorial HospitalComment on above:Order Comment: Waived Testing in the ED is performed under the ED CLIA certificate #[id number].Result Comment: btnuydz0Lwawxikce By: #### [id number] ####[facility] (BEAKER)[address] [facility] [place] [address]DCBPOMSUS, WHOLE BLOODon 42-02-4454Sdlkzeahm [Moles/Vol]3.4 mmol/LLow3.5-5.1UnKettering Memorial HospitalComment on above:Performed By: #### POTASSIUM, WHOLE BLOOD ####[facility] [id number] [place] [address] USAPlatelet mean volume Auto (Bld) [Entitic vol]on 36-40-2032Dysrhmub mean volume (Bld) [Entitic vol]Platelet mean volume [Entitic volume] in Blood by Automated count9.5-13.5 [facility] Medical CenterPlatelets Auto (Bld) [#/Vol]on 08-15-2024 Platelets (Bld) [#/Vol]Platelets [#/volume] in Blood by Automated bmzeg574-520 [facility] CenterRBC Auto (Bld) [#/Vol]on 23-17-0666GPH (Bld) [#/Vol]Erythrocytes [#/volume] in Blood by Automated count4.70-6.10[facility] Medical CenterODIUM, WHOLE BLOODon 70-87-8142NOIJZV, WHOLE BCZLJ592 Eeltpx146-338WxnyzyaqllKettering Memorial HospitalComment on above:Performed By: #### SODIUM, WHOLE BLOOD ####[facility] [id number] [place] [address] USASerum or plasma albumin/globulin mass ratioon 08-15-2024 Albumin/Globulin [Mass ratio]Serum or plasma albumin/globulin mass ratio [facility] Medical Centererum or plasma anion gap determinationon 86-65-5049Putci gap [Moles/Vol]Serum or plasma anion gap determinationUpper Valley Medical CenterTRIGLYCERIDESon 87-71-7966FNMEFJE?unknownNormalUniversMedina HospitalComment on above:Order Comment: Monitor triglycerides while patient is on propofol. Consult Nutrition if greater than 500 mg/dL. Performed By: #### [id number] ####[facility] LAB (BEAKER)[address] [place], [place] [address]Sykigntao [Mass/Vol]3920 mg/dQHsux92-108LhxqxdnctvKettering Memorial HospitalComment on above:Order Comment: Monitor triglycerides while patient is on propofol. Consult Nutrition if greater than 500 mg/dL.Result Comment: TRIGLYCERIDE REFERENCE RANGE:20 YEARS AND OLDER CARDIOVASCULAR RISKLESS THAN 150 mg/dL LOW LNHE383 TO 199 mg/dL BORDERLINE JOCM252 mg/dL AND GREATER HIGH RISKPerformed By: #### [id number] ####[facility] ([facility])[address] [place], [place] [address]XNYPYHVM Ion 96-79-2285Zqzujwdh I.cardiac [Mass/Vol]0.04 ng/mLNormal0.00-0.04UnKettering Memorial HospitalComment on above: Performed By: #### [id number] ####[facility] ([facility])[address] [place], [place] [address]UPUTHZVBEB WITH MICROSCOPICon 73-05-7346FNOCGALVX, TOTAL PRESENCE IN URINENegativeNormalNegativeUnKettering Memorial Hospital Comment on above:Performed By: #### [id number] ####[facility] ([facility])[address] [place], [place] [address]Syrevcl (U)ClearNormalClearUnKettering Memorial HospitalComment on above:Performed By: #### [id number] ####[facility] ([facility])[address] [place], [place] [address]Ryjvw (U)ColorlessNormalColorless, Yellow, Light-YellowUnKettering Memorial HospitalComment on above: Performed By: #### [id number] ####[facility] ([facility])[address] [place], [place] [address]TFPZCDK (MG/DL) IN URINENormalNormalNormalUniversMedina HospitalComment on above:Performed By: #### [id number] ####[facility] ([facility])[address] [place], [place] [address]IVEGDKKRZY PRESENCE IN URINESmallAbnormalNegativeUnKettering Memorial HospitalComment on above: Performed By: #### [id number] ####[facility] ([facility])[address] [place], [place] [address]Kpnazvm Ql (U)NegativeNormalNegativeUnKettering Memorial HospitalComment on above:Performed By: #### [id number] ####[facility] ([facility])[address] [place], [place] [address]GKPZFXPZO ESTERASE PRESENCE IN URINE BY TEST STRIPNegativeNormalNegativeUnKettering Memorial HospitalComment on above:Performed By: #### [id number] ####[facility] ([facility])[address] [place], [place] [address]NXCGC (#/LPF) IN URINE SEDIMENTOccasionalNormalNone Seen, Occasional, FewUnKettering Memorial HospitalComment on above:Performed By: #### [id number] ####[facility] ([facility])[address] [place] [address] NITRITE PRESENCE IN URINENegativeNormalNegativeUnKettering Memorial HospitalComment on above:Performed By: #### [id number] ####[facility] ([facility])[address] [place], [place] [address]fI (U)5.5 [pH]Normal5.0-8.0UnKettering Memorial HospitalComment on above:Performed By: #### [id number] ####[facility] ([facility])[address] [place]AL[place], [place] [address]Dlpfhrm (U) [Mass/Vol] NegativeNormalNegativeUnKettering Memorial HospitalComment on above: Performed By: #### [id number] ####[facility] ([facility])[address] [place], [place] [address]RYP (#/HPF) IN URINE KNHKVCGE05-47AatmymefHjjb Seen, 0-2 [facility] HospitalComment on above:Performed By: #### [id number] ####[facility] ([facility])[address] [place] [facility] [address]Exvlnkhn gravity (U) [Rel density]1.510Xlkofg4.010-1.030UnKettering Memorial Hospital Comment on above:Performed By: #### [id number] ####[facility] ([facility])[address] [place], [place] [address]NXWRCYAL EPITHELIAL CELLS (#/LPF) IN URINE SEDIMENT None SeenNormalNone Seen, Occasional, FewUnKettering Memorial Hospital Comment on above:Performed By: #### [id number] ####[facility] ([facility])[address] [place], [place] [address]WJKBALIMCXSS (MG/DL) IN URINENormalNormalNormal [facility]rville HospitalComment on above:Performed By: #### [id number] ####[facility] ([facility])[address] [place], [place] [address]XLG (LEUKOCYTE) (#/HPF) IN URINE SEDIMENT3-5AbnormalNone Seen, 0-2UnKettering Memorial HospitalComment on above:Performed By: #### [id number] ####[facility] ([facility])[address] [place], [place] [address]Onqioqqor Auto (Bld) [#/Vol]on 53-01-4340Rxzrfqrsf (Bld) [#/Vol]Automated basophil count0.0-0.1FCleveland ClinicBasophils/100 WBC Auto (Bld)on 58-36-5423Axirnloqu/100 WBC (Bld)Automated basophil %0.2-2.0[facility] Eosinophils/100 WBC Auto (Bld)on 36-11-8159Zhvzbtvgbyx/100 WBC (Bld)Automated eosinophil %Low0.9-7.0[facility] CenterErythrocyte distribution width Auto (RBC) [Ratio]on 43-94-1984Jfbwwncrmnn distribution width (RBC) [Ratio]Erythrocyte distribution width [Ratio] by Automated njplaOjow61.0-15.0 [facility] CenterEstimated glomerular filtration rate (GFR) non- Americanon 78-85-5911QIU/1.73 sq M.predicted among non-blacks MDRD (S/P/Bld) [Vol rate/Area]Estimated glomerular filtration rate (GFR) non- AmericanLow>=60 mL/min/1.73m 2FCleveland ClinicGlobulin Calc (S) [Mass/Vol]on 28-51-1038Hxqaekhy (S) [Mass/Vol]Serum globulin measurement by calculation (mass/volume)[facility] CenterHematocrit Auto (Bld) [Volume fraction]on 87-48-1819Ltenxaziym (Bld) [Volume fraction]Hematocrit [Volume Fraction] of Blood by Automated count42.0-54.0[facility] CenterHemoglobin [Mass/volume] in Bloodon 10-36-3597Pzspvxzuea (Bld) [Mass/Vol] Hemoglobin [Mass/volume] in Blood14.0-18.0[facility] Laboratory - Chemistry and Chemistry - challengeon 63-15-5640YKT9 (Bld) [Moles/Vol]30.8 mmol/LHigh22.0-26.0[facility] CenterAlbumin [Mass/Vol]2.4 g/dLLow3.4-5.0[facility] CenterALP [Catalytic activity/Vol]82 U/M66-920BojuqgbztUpper Valley Medical CenterALT [Catalytic activity/Vol]39 U/W38-04SlxlhhbrlUpper Valley Medical CenterAST [Catalytic activity/Vol]24 U/E24-34NexhpuoarUpper Valley Medical CenterBilirubin [Mass/Vol]1.1 mg/dLHigh0.2-1.0[facility] CenterCalcium [Mass/Vol]8.6 mg/dL 8.5-10.1FCleveland ClinicChloride [Moles/Vol]102 mmol/L98-107 [facility] CenterCO2 [Moles/Vol]32.4 mmol/LHigh21.0-32.0 [facility] CenterCreatinine [Mass/Vol]1.64 mg/dLHigh0.70-1.30 [facility] CenterGFR/1.73 sq M.predicted MDRD (S/P/Bld) [Vol rate/Area]51 mL/min/{1.73_m2}Low>=60 mL/min/1.73m 2FCleveland ClinicGlucose [Mass/Vol]194 mg/qTLype95-787LncsthywuUpper Valley Medical Center Potassium [Moles/Vol]3.9 mmol/L3.5-5.1FCleveland ClinicProtein [Mass/Vol]5.8 g/dLLow6.4-8.2FRegency Hospital Cleveland Eastodium [Moles/Vol] 140 mmol/D230-407FksztadbqUpper Valley Medical CenterUrea nitrogen [Mass/Vol]54.0 mg/dLHigh7.0-18.0[facility] CenterUrea nitrogen/Creatinine [Mass ratio]32.9 mg/mgUpper Valley Medical CenterLaboratory - Hematology and Cell countson 69-93-5412Xkqkkiyy granulocytes/100 WBC (Bld)0.8 %High0.0-0.5 [facility] CenterLeukocytes [#/volume] corrected for nucleated erythrocytes in Blood by Automated counon 23-85-8416EES corrected for nucl RBC Auto (Bld) [#/Vol]Leukocytes [#/volume] corrected for nucleated erythrocytes in Blood by Automated coun4.0-11.0[facility] CenterLymphocytes Auto (Bld) [#/Vol]on 16-15-5204Qcrhxahcyvi (Bld) [#/Vol]Lymphocytes [#/volume] in Blood by Automated countLow1.2-3.8[facility] Lymphocytes/100 WBC Auto (Bld)on 70-83-1019Buogphiatij/100 WBC (Bld) Lymphocytes/100 leukocytes in Blood by Automated fhwycDvz21.5-60.0[facility] Medical CenterH Auto (RBC) [Entitic mass]on 19-45-3680UJC (RBC) [Entitic mass]MCH [Entitic mass] by Automated count25.9-34.0[facility] CenterMCHC Auto (RBC) [Mass/Vol]on 60-12-5837FBXK (RBC) [Mass/Vol]MCHC [Mass/volume] by Automated count29.9-35.2FCleveland ClinicMCV Auto (RBC) [Entitic vol]on 17-36-3852XKJ (RBC) [Entitic vol]MCV [Entitic volume] by Automated ouldaGwlr43.0-94.0[facility] CenterMonocytes Auto (Bld) [#/Vol]on 87-12-5991Sndlhacsr (Bld) [#/Vol]Automated blood monocyte count 0.3-0.8[facility] CenterMonocytes/100 WBC Auto (Bld)on 66-72-5871Tktysgmox/100 WBC (Bld)Automated monocyte %1.7-12.0[facility] CenterNeutrophils Auto (Bld) [#/Vol]on 60-28-6821Fucmybznrro (Bld) [#/Vol]Neutrophils [#/volume] in Blood by Automated count1.4-6.5FCleveland ClinicNeutrophils/100 WBC Auto (Bld)on 08-14-2024 Neutrophils/100 WBC (Bld)Automated neutrophil %High43.0-75.0[facility] CenterNo Panel Informationon 44-10-4583Fhzfw TestPositivePOSITIVE [facility] CenterArterial Blood Base Excess6.2 mmol/LHigh <2.0-2.0[facility] CenterArterial Blood Oxygen Zxsdkeavkx29.3 % [facility] CenterArterial Blood Partial Pressure CO248.3 mm[Hg] High35.0-45.0[facility] CenterArterial Blood Partial Pressure O2 62.0 mm[Hg]Low80.0-100.0[facility] CenterArterial Blood pH7.413 7.350-7.450[facility] CenterBlood Gas PEEP+8[facility] CenterBlood Gas Sample SiteRIGHT RADIALUpper Valley Medical Center Blood Gas Set Respiration Gxfi11WjfxjqaglUpper Valley Medical CenterBlood Gas Tidal Kheovi774EtytmebyrUpper Valley Medical CenterBlood Gas Ventilator ModeACUpper Valley Medical CenterFiO2100 %[facility] CenterOxygen Delivery DeviceVENTUpper Valley Medical CenterEosinophils # (Auto)0.0 10 3/uL 0.0-0.7FCleveland ClinicImmature Granulocyte # (Auto)0.05 10 3/uLHigh0.00-0.03[facility] CenterPlatelet mean volume Auto (Bld) [Entitic vol]on 11-09-9912Ccrtowzj mean volume (Bld) [Entitic vol]Platelet mean volume [Entitic volume] in Blood by Automated count9.5-13.5FCleveland ClinicPlatelets Auto (Bld) [#/Vol]on 27-44-2309Mbpbnbdtj (Bld) [#/Vol]Platelets [#/volume] in Blood by Automated xuncs829-924UhavctuudUpper Valley Medical CenterRBC Auto (Bld) [#/Vol]on 03-09-9372BKQ (Bld) [#/Vol]Erythrocytes [#/volume] in Blood by Automated count4.70-6.10[facility] Serum or plasma albumin/globulin mass ratioon 11-42-8272Pbwvllk/Globulin [Mass ratio]Serum or plasma albumin/globulin mass ratioAdams County Regional Medical Centererum or plasma anion gap determinationon 54-71-7954Nrdso gap [Moles/Vol] Serum or plasma anion gap determinationUpper Valley Medical CenterURINE CULTURE, ROUTINEon 02-96-9499Hfxwbusc identified Cx Nom (U) Urine Culture, Routine NOMS HealthcareBacteria identified Cx Nom (U)No growthNOMS HealthcareBacteria identified Cx Nom (U)Performed at: [facility]John [facility] HealthcareBacteria identified Cx Nom (U)[address] [place] [address] [id number] Bacteria identified Cx Nom (U)Evaporator Helper: Tyron Saeed PhD, Phone: [phone] HealthcareCLINISYNCNOMS HealthcareBasophils Auto (Bld) [#/Vol]on 79-51-4591Qcfczwfpi (Bld) [#/Vol]0.1 10 3/uL0.0-0.1FCleveland ClinicBasophils/100 WBC Auto (Bld)on 79-18-1801Puqtunweu/100 WBC (Bld)0.4 % 0.2-2.0[facility] CenterEosinophils/100 WBC Auto (Bld)on 32-25-6838Hognvzkesrv/100 WBC (Bld)1.7 %0.9-7.0[facility] Erythrocyte distribution width Auto (RBC) [Ratio]on 33-47-9270Hyyorhawfeu distribution width (RBC) [Ratio]13.9 %11.0-15.0[facility] Estimated glomerular filtration rate (GFR) non- Americanon 04-08-2024 GFR/1.73 sq M.predicted among non-blacks MDRD (S/P/Bld) [Vol rate/Area] mL/min/{1.73_m2}>=60[facility] CenterHematocrit Auto (Bld) [Volume fraction]on 11-08-8133Rlfvheiglq (Bld) [Volume fraction]45.1 %42.0-54.0 [facility] CenterHemoglobin [Mass/volume] in Bloodon 04-08-2024 Hemoglobin (Bld) [Mass/Vol]14.7 g/dL14.0-18.0[facility] Laboratory - Chemistry and Chemistry - challengeon 14-61-0830Voxjtmq [Mass/Vol] 10.6 mg/dLHigh8.5-10.1FCleveland ClinicChloride [Moles/Vol]98 mmol/D41-304EpzmvltnhUpper Valley Medical CenterCO2 [Moles/Vol]34.6 mmol/LHigh 21.0-32.0[facility] CenterCreatinine [Mass/Vol]1.03 mg/dL 0.70-1.30[facility] CenterGFR/1.73 sq M.predicted MDRD (S/P/Bld) [Vol rate/Area]mL/min/{1.73_m2}>=60[facility] CenterGlucose [Mass/Vol]178 mg/nMAkdk87-815ZcikcpfvcUpper Valley Medical CenterPotassium [Moles/Vol]4.4 mmol/L3.5-5.1FRegency Hospital Cleveland Eastodium [Moles/Vol] 135 mmol/ZCni801-250PsbiwgpcbUpper Valley Medical CenterUrea nitrogen [Mass/Vol] 16.0 mg/dL7.0-18.0[facility] CenterUrea nitrogen/Creatinine [Mass ratio]15.5 mg/mgUpper Valley Medical CenterLaboratory - Hematology and Cell countson 51-36-8968Dxsqxdeb granulocytes/100 WBC (Bld)1.1 %High0.0-0.5 [facility] CenterLeukocytes [#/volume] corrected for nucleated erythrocytes in Blood by Automated counon 14-30-1211PIV corrected for nucl RBC Auto (Bld) [#/Vol]13.3 10 3/uLHigh4.0-11.0[facility] Lymphocytes Auto (Bld) [#/Vol]on 87-23-3972Kffnbefymwa (Bld) [#/Vol]1.7 10 3/uL 1.2-3.8[facility] CenterLymphocytes/100 WBC Auto (Bld)on 67-35-0181Eqemiumhvup/100 WBC (Bld)12.5 %Low20.5-60.0[facility] Medical CenterH Auto (RBC) [Entitic mass]on 28-43-6724AEL (RBC) [Entitic mass]31.1 pg 25.9-34.0[facility] CenterMCHC Auto (RBC) [Mass/Vol]on 40-57-0871QDLI (RBC) [Mass/Vol]32.6 g/dL29.9-35.2FCleveland ClinicMCV Auto (RBC) [Entitic vol]on 31-45-5749NGR (RBC) [Entitic vol]95.6 fL High80.0-94.0[facility] CenterMonocytes Auto (Bld) [#/Vol]on 68-00-5322Eojhwuguc (Bld) [#/Vol]1.0 10 3/uLHigh0.3-0.8[facility] CenterMonocytes/100 WBC Auto (Bld)on 97-27-6596Lcjxqlbin/100 WBC (Bld) 7.3 %1.7-12.0[facility] CenterNeutrophils Auto (Bld) [#/Vol]on 56-42-9173Ffapbrdwluj (Bld) [#/Vol]10.3 10 3/uLHigh1.4-6.5FCleveland ClinicNeutrophils/100 WBC Auto (Bld)on 31-18-1057Zprdmthdiez/100 WBC (Bld)77.0 %High43.0-75.0[facility] CenterNo Panel Information Ordered By: Rc Curtis on 21-87-6868Ngpi Fast SmearUpper Valley Medical CenterAFB Specimen ProcessingUpper Valley Medical CenterAnaerobic Cult, Extended IncubUpper Valley Medical CenterTissue CultureUpper Valley Medical CenterNo Panel Informationon 59-35-7859Xjsiws Smear Result\R\ Fungus StainUpper Valley Medical CenterGram Stain Result 1\R\ Gram Stain ResultUpper Valley Medical CenterMiscellaneous Test CommentSee comment [facility] CenterComment on above:Specimen Source: FOOTRT - Foot Right - Foot Rt - 604.000Eosinophils # (Auto)0.2 10 3/uL0.0-0.7FCleveland ClinicImmature Granulocyte # (Auto)0.15 10 3/uLHigh0.00-0.03 [facility] CenterPlatelet mean volume Auto (Bld) [Entitic vol]on 44-12-1129Rrcngujt mean volume (Bld) [Entitic vol]9.8 fL9.5-13.5FCleveland ClinicPlatelets Auto (Bld) [#/Vol]on 70-27-0641Vntjohoke (Bld) [#/Vol]482 10 3/bBVvgx275-283LcpgacnirUpper Valley Medical CenterRBC Auto (Bld) [#/Vol]on 81-36-6680BOU (Bld) [#/Vol]4.72 10 6/uL4.70-6.10Ad[facility] Medical Centererum or plasma anion gap determinationon 43-27-0268Xemok gap [Moles/Vol]6.8 mmol/LFCleveland ClinicALL CBC WITH AUTO DIFFon 60-61-9465ZZFQSQFJN ABSOLUTE AUTO0.1NOMS HealthcareBasophils/100 WBC (Bld)0.6 % 0.2 - 2.0 %[facility] HealthcareEosinophils/100 WBC (Bld)2.1 %0.9 - 7.0 %[facility] HealthcareErythrocyte distribution width (RBC) [Ratio]14.0 %11.0 - 15.0 %[facility]S HealthcareHematocrit (Bld) [Volume fraction]41.9 %Low42.0 - 54.0 %[facility] HealthcareHemoglobin (Bld) [Mass/Vol]13.7 g/dLLow14.0 - 18.0 g/dLNOMS Healthcare IMMATURE GRANULOCYTES ABS AUTO0.46HighNOMS HealthcareImmature granulocytes/100 WBC (Bld)2.9 %High0.0 - 0.5 %[facility] HealthcareInterpretation and review of laboratory resultsAbnormalNOMS HealthcareLYMPHOCYTES ABSOLUTE AUTO2.3NOMS HealthcareLymphocytes/100 WBC (Bld)14.7 %Low20.5 - 60.0 %[facility]OMS HealthcareMCH (RBC) [Entitic mass]31.5 pg25.9 - 34.[address] John'sHC (RBC) [Mass/Vol] 32.7 g/dL29.9 - 35.2 g/dLMercy Hospital St. John'sV (RBC) [Entitic vol]96.3 wDYmii66.0 - 94.0 fLChildren's Mercy HospitalMONOCYTES ABSOLUTE AUTO1.2HighBEAR RIVER VALLEY [facility]PITAL HealthcareMonocytes/100 WBC (Bld)7.8 %1.7 - 12.0 %[facility] HealthcareNEUTROPHILS ABSOLUTE AUTO11.4HighBEAR RIVER VALLEY HOSPITAL HealthcareNeutrophils/100 WBC (Bld)71.9 %43.0 - 75.0 %[facility] HealthcarePlatelet mean volume (Bld) [Entitic vol]10.2 fL9.5 - 13.5 fLChildren's Mercy HospitalTBH EO #0.3 [facility]'s Mercy HospitalTBH ESK427AmjrULOX HealthcareTB RBC4.35LowChildren's Mercy HospitalTBH WBC 15.8HighChildren's Mercy HospitalCLINISYNCNOMS HealthcareXR FOOT LT MIN 3 VIEWSon 42-23-4778CG FOOT LT MIN 3 VIEWSEXAM: XR FOOT LT MIN 3 VIEWS HISTORY: [...] Electronically authenticated by: Sukhdev PARKS Date: 2022-07-14 23:08[facility] SystemGLYCOHEMOGLOBIN A1Con 86-79-2514VDW RECOMMENDATIONSEE BELOW NormalThe [facility] HospitalComment on above:Result Comment: ADA RECOMMENDED LIMIT 4.0 - 6.0 ADA THERAPEUTIC TARGET < 7.0 ACTION SUGGESTED > 7.0Performed By: #### A1C #### [facility] [address] [place] [address] Dr. Jennifer ZamoraGlucose [Mass/Vol]212 mg/dLUniversity Hospitals Health SystemComment on above:Performed By: #### A1C #### [facility] [address] [address] [address] Jennifer ZamoraHbA1c (Bld) [Mass fraction]9.0 %Critically high4.5-6.2The [facility] Memorial HospitalComment on above:Performed By: #### A1C #### [facility] [address] [place] [address] Dr. Jennifer ZamoraPROF 14(COMP METB)on 23-30-6099Phrornx [Mass/Vol]3.4 g/dLNormal 3.4-5.0The [facility] Memorial HospitalComment on above:Performed By: #### CMP #### [facility] [address] [place] [address] Dr. Jennifer ZamoraAlbumin/Globulin [Mass ratio]0.9 {ratio}NormalThe [facility] Memorial HospitalComment on above:Performed By: #### CMP #### [facility] [address] [place] [address] Dr. Jennifer AriasP [Catalytic activity/Vol]108 U/MMwjifv08-658Kfp [facility] HospitalComment on above:Performed By: #### CMP #### [facility] [address] [place] [address] Dr. Jennifer AriasT [Catalytic activity/Vol]35 U/ABnunbn14-52Fuh [facility] HospitalComment on above:Performed By: #### CMP #### [facility] [address] [place] [address] Dr. Jennifer Early gap [Moles/Vol]7.0 mmol/LNormalThe [facility] Memorial HospitalComment on above:Performed By: #### CMP #### [facility] [address] [place] [address] Dr. Jennifer ZamoraAST [Catalytic activity/Vol]11 U/LCritically vdx43-07Bmy [facility] HospitalComment on above:Performed By: #### CMP #### [facility] [address] [place] [address] Dr. Jennifer ZamoraBilirubin [Mass/Vol]0.7 mg/dLNormal0.2-1.0The [facility] Comment on above:Performed By: #### CMP #### [facility] [address] [address] [address] Jennifer ZamoraCalcium [Mass/Vol]8.9 mg/dLNormal8.5-10.1The [facility] Comment on above:Performed By: #### CMP #### [facility] [address] [address] [address] Jennifer ZamoraChloride [Moles/Vol]100 mmol/VGqxppi38-650Ryo [facility] Comment on above:Performed By: #### CMP #### [facility] [address] [address] [address] Jennifer ZamoraCO2 [Moles/Vol]32.5 mmol/LCritically high21.0-32.0The [facility] Memorial HospitalComment on above:Performed By: #### CMP #### [facility] [address] [address] [address] Jennifer ZamoraCreatinine [Mass/Vol]1.05 mg/dLNormal0.70-1.30The [facility] Memorial HospitalComment on above:Performed By: #### CMP #### [facility] [address] [address] [address] Jennifer VasquezGFR-AF GABONESE>60Normal>=60The [facility] Memorial HospitalComment on above:Performed By: #### CMP #### [facility] [address] [address] [address] Jennifer VasquezGFR-NON AF GABONESE>60Normal>=60The [facility] Memorial HospitalComment on above:Performed By: #### CMP #### [facility] [address] [address] [address] Jennifer ZamoraGlobulin (S) [Mass/Vol]3.7 g/dLNormalThe [facility] Memorial HospitalComment on above:Performed By: #### CMP #### [facility] [address] [address] [address] Jennifer ZamoraGlucose [Mass/Vol]175 mg/dLCritically clsh56-678Ali [facility] HospitalComment on above:Performed By: #### CMP #### [facility] [address] [address] [address] Jennifer ZamoraPotassium [Moles/Vol]4.5 mmol/LNormal3.5-5.1The [facility] Comment on above:Performed By: #### CMP #### [facility] [address] [address] [address] Jennifer ZamoraProtein [Mass/Vol]7.1 g/dLNormal6.4-8.2The [facility] Comment on above:Performed By: #### CMP #### [facility] [address] [address] [address] Jennifer ZamoraSodium [Moles/Vol]135 mmol/LCritically bil732-210Qzz [facility] HospitalComment on above:Performed By: #### CMP #### [facility] [address] [place] [address] Dr. Jennifer ZamoraUrea nitrogen [Mass/Vol]18.0 mg/dLNormal7.0-18.0The [facility] HospitalComment on above:Performed By: #### CMP #### [facility] [address] [place] [address] Dr. Jennifer Bragg nitrogen/Creatinine [Mass ratio]17.1 mg/mgNormalThe [facility] HospitalComment on above:Performed By: #### CMP #### [facility] [address] [place] [address] Dr. Jennifer Zamora Vital Signs Date TimeVital SignValuePerforming NtverwyyqPmgwaqxo41-01-0239 14:00-0400Body .34 cmDara Eisenberg APRN Work Phone: [facility]10-09-2025 14:00-0400 Body zsgpayuqbjv02.9 [degF]Dara Eisenberg APRN Work Phone: [facility]10-09-2025 14:00-0400 Diastolic blood gmnvenqz60 mm[Hg]Dara Eisenberg APRN Work Phone: [facility]10-09-2025 14:00-0400 Heart rate86 /minDara Eisenberg PRODUCT DEVELOPMENT ASSISTANT Work Phone: [phone]10-09-2025 14:00-0400 SaO2% (BldA) [Mass fraction]94 %Dara Mendenhallaleciamaríazaida PRODUCT DEVELOPMENT ASSISTANT Work Phone: [phone] [place], [place] [address]10-09-2025 14:00-0400 Systolic blood alpuxtja678 mm[Hg]Dara Mendenhallcharlotte PRODUCT DEVELOPMENT ASSISTANT Work Phone: [phone] [place], [place] 2177407-15-2025 14:09-0400 Body oyohqk058.34 cmDara Robbr PRODUCT DEVELOPMENT ASSISTANT Work Phone: [phone] [place], [place] 2177407-15-2025 14:09-0400 Body mass index (BMI) [Ratio]41.7 kg/o5OminbkbuDara Florianacher PRODUCT DEVELOPMENT ASSISTANT Work Phone: [phone] [place], [place] 2177407-15-2025 14:09-0400 Body slgagewqcxn25.5 [degF]Dara Mendenhallcharlotte PRODUCT DEVELOPMENT ASSISTANT Work Phone: [phone] [place], [place] 2177407-15-2025 14:09-0400 Body neknkb494.62 kgDara Robbr PRODUCT DEVELOPMENT ASSISTANT Work Phone: [phone] [place], [place] 2177407-15-2025 14:09-0400 Diastolic blood exudpiee22 mm[Hg]Dara Mendenhallaleciamaríazaida PRODUCT DEVELOPMENT ASSISTANT Work Phone: [phone] [place], [place] 1650907-15-2025 14:09-0400 Heart sryu115 /Alon Robbzaida PRODUCT DEVELOPMENT ASSISTANT Work Phone: [phone] [place], [place] 2177407-15-2025 14:09-0400 SaO2% (BldA) [Mass fraction]96 %Dara Mendenhallcharlotte PRODUCT DEVELOPMENT ASSISTANT Work Phone: [phone] [place], [place] 2177407-15-2025 14:09-0400 Systolic blood myjwmyko011 mm[Hg]Dara Mendenhallcharlotte PRODUCT DEVELOPMENT ASSISTANT Work Phone: [phone] [place], [place] 2177404-18-2025 10:26-040 Body .34 cmUpper [facility]04-18-2025 10:0400Body mass index (BMI) [Ratio]44.7 kg/v4HblqbereeUpper Valley Medical Center04-18-2025 10:Body .6 kgUpper Valley Medical Center04-18-2025 10:Diastolic blood ocyzbqfe11 mm[Hg][facility] 11-05-2024 10:Heart rate98 /[facility] 11-05-2024 10:Respiratory rate14 /[facility] 11-05-2024 10:0754LdG6% (BldA) [Mass fraction]90 %[facility]04-18-2025 10:Systolic blood ntnwkihf998 mm[Hg][facility]10-14-2024 14:14-0400Body mscasw171.34 cmAPRFauzia Eisenberg Work Phone: [phone] [place], [place] 1650910-14-2024 14:14-0400 Body mass index (BMI) [Ratio]39.3 kg/m2ROWDY Eisenberg Work Phone: [phone]10-14-2024 14:14-0400 Body dgqslbzqyzl82.9 [degF]ROWDY Eisenberg Work Phone: [phone]10-14-2024 14:14-0400 Body hqkejk436 kgROWDY Eisenberg Work Phone: [phone]10-14-2024 14:14-0400 Diastolic blood xxqvzikh51 mm[Hg]ROWDY Eisenberg Work Phone: [phone]10-14-2024 14:14-0400 Heart csvy952 /minROWDY Eisenberg Work Phone: [phone]10-14-2024 14:14-0400 SaO2% (BldA) [Mass fraction]92 %ROWDY Eisenberg Work Phone: [facility]10-14-2024 14:14-0400 Systolic blood nxdpszde772 mm[Hg]ROWDY Ivanfer Faina Work Phone: [facility]09-16-2024 13:44-0400 Body .34 cmDPM [facility] Work Phone: [facility]09-16-2024 13:44-0400 Body mass index (BMI) [Ratio]39.6 kg/m2DPM [facility] Work Phone: [facility]09-16-2024 13:44-0400 Body pcipsmsdjjx02.4 [degF]DPM [facility] Work Phone: [facility]09-16-2024 13:44-0400 Body vektsu279.82 kgDPM [facility] Work Phone: [facility]09-16-2024 13:44-0400 Diastolic blood jpizbydo07 mm[Hg]DPM [facility] Work Phone: [facility]09-16-2024 13:44-0400 Heart rate61 /minDPM [facility] Work Phone: [facility]09-16-2024 13:44-0400 SaO2% (BldA) [Mass fraction]87 %DPM [facility] Work Phone: [facility]09-16-2024 13:44-0400 Systolic blood mm[Hg]DPM [facility] Work Phone: [facility] Encounters Encounter DateEncounter TypeCare ProviderFacilityStart: 04-28-2025 End: 20-94-9780xtwozeftevBssyoqdhJanette Eisenberg APRN Work Phone: [facility] Work Phone: Start: 04-28-2025 End: 82-95-8200Tdpnatf encounter procedureDara Eisenberg APRN [facility] Work Phone: Start: [phone]-patient / Non-visitCatherwendy Blevins [facility] Work Phone: Start: [phone]-patient / Non-visitRafisukhdev Richard [facility] Work Phone: Start: [phone]-patient / Non-visitRafisukhdev Richard [facility] Work Phone: Start: [phone]-patient / Non-visitRafisukhdev Richard MDCapital [facility] Work Phone: Start: 77-12-6188Yzh-patient / Non-visitRafisukhdev Richard MDCapital [facility] Work Phone: Start: 04-05-2025 End: 25-06-7177aynniwpwwzHgtsfxjcJanette Eisenberg APRN Work Phone: [facility] Work Phone: Start: 04-05-2025 End: 94-26-4678Zmfhurkn Keron Starr MD-LAB Path [facility] Start: 34-59-7839Wey-patient / Non-visitRafisukhdev Richard MDCapital [facility] Work Phone: Start: 67-70-1889zhtjveqmkyTWMZ Helen Justmily Facility:[facility]ATIONtart: 02-01-2025 End: 44-66-0093qbbbkskfrwFphmexra Rohrbacher APRN Work Phone: [facility] Work Phone: Start: 02-01-2025 End: 68-74-0230Bxsxwss encounter procedureDara Eisenberg APRN [facility] Work Phone: Start: 01-28-2025 End: 79-45-5879pncixxsoerQWCVFHBQ A ROHRBACHERFacility:FTMCStart: 55-23-9447Qce- patient / Non-visitCatherine Gen [facility] Work Phone: Start: 01-24-2025 End: 34-62-8297Fpebhkfslz and management of inpatientLawrence CalebNimesh Noahkinsey Facility:FTMCStart: 78-02-6449Znhpffmbu department patient visitAstrit Delfina Fletcher Facility:FTMCStart: 11-05-2024 End: 04-51-0434wksftxigozOmvwlrnbaTriHealth Work Phone: Start: 11-05-2024 End: 50-96-3532Skltcsq encounter procedureUnc Health Physician Group-[facility] Work Phone: Start: 99-06-4960Koammqdipc and management of inpatientFADI SAFIMetroHealth Main Campus Medical Centertart: 30-98-0268Lsbsvlafki and management of inpatientOMAR HORANIMetroHealth Main Campus Medical Centertart: 84-94-7592Eauphxhgbd and management of inpatientKIMBERLY [facility] Hospitaltart: 14-19-5424Zamtpsdace and management of inpatient PALOMO [facility] Hospitaltart: 83-49-3538Ofmwqhfdot and management of inpatientZAID [facility] Hospitaltart: 83-98-9425Dedgihqwtt and management of inpatientZAID [facility] Hospitaltart: 68-28-1368Bmnpahalad and management of inpatientZAID [facility]: 59-56-6115Xyhvkuamqf and management of inpatientZAID [facility] Hospitaltart: 08-19-2024 Evaluation and management of inpatientZAID [facility] Hospitaltart: 96-20-5758Robemqwdtu and management of inpatientZAID [facility]: 41-95-8412Nsxjxcpzoe and management of inpatientZAID [facility] Hospitaltart: 08-16-2024 Evaluation and management of inpatientZAID [facility] Hospitaltart: 08-29-8350Jaxfnilznm and management of inpatientMOHAMED OMDOVERI [facility] Centertart: 08-15-2024 End: 95-79-4649Ykmpxlspnh and management of inpatientSMELANI UrbinaOhio Valley Surgical Hospitaltart: 49-56-2745Wob-patient / Non-visitUnc Health Physician [facility] Work Phone: Start: 51-17-1239Hvm-patient / Non-visitUnc Health Physician [facility] Work Phone: Start: 08-10-2024 End: 05-73-1831Ckdfqjekc Result EncounterSmelani Villareal MD Work Phone: noms External Department UnsolicitedStart: 08-10-2024 End: 33-49-2872Vcnbhezjq Result EncounterSmelani Villareal MD Work Phone: noms External Department UnsolicitedStart: 05-03-2024 End: 20-83-8415omaeklgxelLCBK Jennifer Rohrbacher Work Phone: [facility] Work Phone: Start: 05-03-2024 End: 81-85-0797Quvqqua encounter procedureROWDY Eisenberg Work Phone: [facility] Work Phone: Start: 04-12-2024 End: 00-79-2080etbfstrhmjQQAL Jennifer Rohrbacher Work Phone: [facility] Work Phone: Start: 04-12-2024 End: 53-88-8126Wmtpqox encounter procedureROWDY Eisenberg Work Phone: [facility] Infectious Disease Work Phone: Start: 04-08-2024 End: 43-19-9092fzwzcbxhunWZPI Dara Eisenberg Work Phone: [facility] Work Phone: Start: 04-08-2024 End: 36-43-6712Ogowscts ReferredAPRN Dara Faina Work Phone: [facility]-LAB Path Spec [place] [facility]ospStart: 73-06-5831Ubr-patient / Non-visitAPRN Dara Eisenberg Work Phone: [facility] Work Phone: Start: 04-05-2024 End: 07-77-3706Eyemuupix Result EncounterSmelani Villareal MD Work Phone: noms External Department UnsolicitedStart: 04-05-2024 End: 57-82-4652Kuongmmbw Result EncounterSmelani Villareal MD Work Phone: noms External Department UnsolicitedStart: 04-05-2024 End: 40-88-0521oyzznfnwtkYRP Rc Curtis Work Phone: [facility] Work Phone: Start: 04-05-2024 End: 37-38-4765Chelvoq encounter procedureDPM Rc Curtis Work Phone: [facility] Work Phone: Start: 03-29-2024 End: 54-34-4666kjvlbharwkYFZ Rc Curtis Work Phone: [facility] Work Phone: Start: 03-29-2024 End: 86-83-5119Veoxyyao ReferredDPM Rc Curtis Work Phone: [facility] [place] [facility]ospStart: 16-79-9585Wql-patient / Non-visitDPM Rc Curtis Work Phone: [facility] Work Phone: Start: 07-14-2022 End: 29-25-3602cukclhnvseOP EDELMIRA MARKERFacility:W2Jaitm: 05-13-2022 End: 60-41-9653sywvzaifnuBU MADELEINE HOUSEFacility:H1 Procedures DateProcedureProcedure DetailPerforming ClinicianStart: 56-79-4106Zmilq culture Dara Eisenberg PRODUCT DEVELOPMENT ASSISTANT Work Phone: Start: 26-49-4988Zpiqswfo identified in Urine by CultureSmelani Villareal MD Work Phone: Start: 73-74-5968Uhds Fast SmearAPRFauzia Eisenberg Work Phone: Start: 52-20-1587VLF Specimen ProcessingAPRFauzia Eisenberg Work Phone: Start: 58-01-0255Ltieakqix Cult, Extended IncubAPRFauzia Eisenberg Work Phone: Start: 33-99-1196Csvivw CultureAPRFauzia Eisenberg Work Phone: Start: 89-21-0373YWV CBC WITH AUTO DIFFShevens Villareal MD Work Phone: History of amputation of footStatus post partial amputation of right footHistory of amputation of footStatus post partial amputation of right footJennifer Rohrbacher PRODUCT DEVELOPMENT ASSISTANT CNPHistory of amputation of footStatus post partial amputation of right footJennifer Rohrbacher PRODUCT DEVELOPMENT ASSISTANT PAPER STRIPPER Plan of Treatment DateCare ActivityDetailAuthorStart: 47-75-1082Odaol [facility] Systemtart: 05-82-8771Nafazmwt identified in Urine by CultureUrine [facility] Campustart: 90-98-0630Nlvt Fast CultureAcid Fast [facility] Payers DatePayer CategoryPayerPolicy [id number]-[id number] Health [id number] [id number]-[id number] [id number] 2.16.840.1.941457.3.579.2.30548-05-5762 [id number] 2.16.840.1.808459.3.57[id number] 2.16.840.1.487640.3.57[id number] 2.16.840.1.374885.3.57[id number] 2.16.840.1.715354.3.57[id number] 2.16.840.1.766610.3.57[id number] 2.16.840.1.722928.3.57[id number] 2.16.840.1.255521.3.57[id number] 2.16.840.1.421565.3.57[id number] 2.16.840.1.828512.3.57[id number] 2.16.840.1.231545.3.579.2.727MedicareCaresource MyCareThe Metrohealth [id number] Health InsuranceWvumedicine [facility] Hospital [id number] Insurance [id number] 2.16.840.1.989679.3.579.2.531 Social History DateTypeDetailFacilityTobacco smoking status NHISUnknown if ever smokedThe [facility] Hospital Work Phone: Start: 95-24-2333Iqu Assigned At BirthChildren's Hospital of Columbustart: 20-05-3996Ajtnvrn smoking status NHISSmoker (finding)[facility] CenterTobao smoking status NHISTobacco smoking consumption [facility] HealthcareStart: 07-66-5891Bbc assigned at Not on [facility] CenterGender identityNot on [facility] Medical CenterStart: 18-67-4431MefXpxn (finding)[facility] Centertart: 04-05-2024 Tobacco smoking status NHISSmokes tobacco daily (finding)[facility] Medical Equipment Procedure CodeEquipment CodeEquipment Original TextEquipment IdentifierDates Blood Sugar Diagnostic stripStart: 50-88-9140Iqovg Sugar Diagnostic stripStart: 04-28-2024 End: 83-21-1663Zpeal Sugar Diagnostic stripStart: 03-97-5688Tnopo Sugar Diagnostic stripStart: 04-28-2024 End: 63-02-4847Ujlao Sugar Diagnostic stripStart: 41-55-2434Mmdpd Sugar Diagnostic stripStart: 04-28-2024 End: 67-27-2060Yfllv Sugar Diagnostic stripStart: 22-65-2968Rhmip Sugar Diagnostic stripStart: 04-28-2024 End: 04-28-2024 Clinical Notes 08-16-2024 to 02-01-2025 Note Date & PnmdSeeuEdwfgdsa36-34-7894 Evaluation note* Diagnosis Onset Date Resolution Status [...] 2024 2:06pmVenous insufficiency (chronic) (peripheral) acuteJuly 2024 2:06pm [facility] Work Phone: 1(565) 575-613307-15-2025 Evaluation note* Diagnosis Onset Date Resolution Status [...] diabetes mellitus with diabetic neuropathyacuteOctober 2024 1:53pm [facility] Work Phone: 1(852) 445-151507-14-2025 NoteMicrobiology PROCEDURE: Blood Culture Charcoal [R1] SOURCE: Blood BODY SITE: Hand L COLLECTED DATE/TIME: 01/24/2025 17:12 EDT RECEIVED DATE/TIME: 01/24/2025 17:31 EDT START DATE/TIME: 01/24/2025 17:31 EDT FREE TEXT SOURCE: Timur MARCELO DO, Ghassan Ding III, DO, Ghassan Zepeda FINAL REPORTS Final Report [] Verified Date/Time: 01/31/2025 18:00 EDT No growth at 7 days. Performing Locations R1: This test was performed at: [facility], [address] [place] [address], [address] [place] [address], GjhjsbMercy Health Urbana HospitalComment on above:Performed By: #### [id number] #### [facility] [address] [place] [address] [id number] NoteMicrobiology PROCEDURE: Blood Culture Charcoal [R1] SOURCE: Blood BODY SITE: Arm R COLLECTED DATE/TIME: 01/24/2025 17:07 EDT RECEIVED DATE/TIME: 01/24/2025 17:31 EDT START DATE/TIME: 01/24/2025 17:31 EDT FREE TEXT SOURCE: Timur MARCELO DO, Ghassan Ding III, DO, Ghassan Zepeda FINAL REPORTS Final Report [] Verified Date/Time: 01/31/2025 18:00 EDT No growth at 7 days. Performing Locations R1: This test was performed at: [facility], [address] [place] [address], [address]- , , JgchppMercy Health Urbana HospitalComment on above:Performed By: #### [id number] #### [facility] [address] [place] [address] [id number] NotePatient Education - Text Atrial Fibrillation Atrial [...] signals of the heart. ??? An ambulatory mosaic tiler to record your heart's activity for a [...] of a (more content not included)...[facility]07-09-2025 NoteDischarge Summary Admission and Discharge Information [...] Insulin dependent type 2 diabetes mellitus, 01/24/2025 [facility] (current) use of insulin, 01/24/2025 Medical problem [...] control regimen. Patient wasinsistent on trying an jyrf-qfd-ighgcfn supplement that he stated would cure diabetes [...] his wounds and recommended continued follow-up with [place] [facility] where he receives care. Patient successfully passed a voiding trial and was voiding easily after removalof [place]. Creatinine had improved from 1.4-0.8 on discharge. Medically stable for discharge home on 01/26/2025. Follow-up PCP in 7 to 10 days Continued care at [place] wound clinic Referral sent to Dr. Dugan in [place] for endocrinology follow-up for better glucose control. [...] Completed -- 01/24/25 20:11:27 EDT Consult to Patient Support Partner (Patient Support Partner Consult) - Ordered -- 01/24/25 20:22:00 EDT, [...] normal b (more content not included)...[facility] HospitalComment on above:Result Comment: Electronically Signed By: Ghassan Ding III, DO.marco\Date and Time Signed: 01/26/25 16:13 [id number] NotePatient Education - Text Atrial Fibrillation Atrial [...] signals of the heart. ??? An ambulatory mosaic tiler to record your heart's activity for a [...] of a (more content not included)...[facility]07-09-2025 NoteProgress Note - Pharmacy Pharmacy to [...] Plan; TBD Please contact Pharmacy at ext. [phone] if there are any questions.[facility]07-08-2025 NoteInterdisciplinary Note - OT Pt is seen for OT evaluation. AMPAC score: 16/24. Pt is agreeable only to sitting EOB, no further transfers or mobility and becomes very agitated due to BLE pain. Pt is below functional baseline for ADL performance. OT to follow for treatment. Recommending HH vs SNF at this time pending progress with treatment. [facility]07-08-2025 NoteProgress Note-Physician Assessment/Plan 01/25 - WBC [...] Orders Initial Hospital Care/Day Moderate 55 Minutes 99303 Sbsq Hospital Care/Day Moderate 35 Minutes 77499 2. Cellulitis of leg (L03.119: Cellulitis of [...] Monitoring on telemetry. Patient noncompliant with anticoagulation. PPZ2VB6-NWQc score is 4. Reports that Eliquis dose [...] despite clear documentation from previous admission in [place] in August 2024. Reports that he stopped taking all of his diabetes medications. 8. Insulin dependent type 2 diabetes mellitus (E11.9: Type 2 diabetes mellitus without complications) A1c: 12.6 BGT ACHS with sliding scale insulin as needed Lantus 30 units nightly at home. Patient noncompliant. Tolerated 20units QHS 01/24, uptitrate to 30 units today. Goal glucose will be less than 180. 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 Tobacco use / SNOMED CT 2307353544 / Confirmed, Active Problems (2) Smoker Tobacco [...] 25:) Heart Rate Monitored 88 bpm (JAN 25:26) Resp Rate 16 br/min (JAN 24 18:00) [...] an outpatient with the wound center in [place].[facility] HospitalComment on above:Result Comment: Electronically Signed By: Sina Mckeon DPM.marco\Date and Time Signed: 01/25/25 12:56 [id number] NoteInterdisciplinary Note - PT PT Evaluation done this date. Pt. with on AM-PAC this date. He requires supervision to CGAx1 with all activity. Uses w/c and FWW at baseline. Recommend home with home health PT.[facility]07-08-2025 NoteProgress Note - Pharmacy Pharmacy to [...] Plan; TBD Please contact Pharmacy at ext. [phone] if there are any questions.[facility]07-07-2025 NoteHistory and Physical Basic Information Admit [...] historian, and obesity who presented [facility] with chief complaint of varicose vein [...] would be 75 kg. Given 2 L. [place] sepsis bolus will be 2.25 L, ever, [...] specifically. He follows with Dr. Curtis at [place] for podiatry and had a right transmetatarsal amputation in the past that appeared well- healed. He denies ever seeing vascular surgery. He follows with [place] wound clinic. Stated that he has not [...] ROM, Normal alignment. Ext (more content not included)...[facility] CenterComment on above: Result Comment: Electronically Signed By: Ghassan Ding III, DO.marco\Date and Time Signed: 01/24/25 20:28 [id number] NoteED Patient Education Note Cardiovascular Bleeding Varicose [...] at home: Medicines ??? Take and use gzpc-cpr-sldnmnl and prescription medicines and creams only as [...] around your limbs and wais (morecontent not included)...[facility] 01-24-2025 NoteProgress Note-Nurse tourniquerts removed by [facility]07-07-2025 NoteProgress Note - Pharmacy Pharmacy to [...] Plan; TBD Please contact Pharmacy at ext. [phone] if there are any questions. Spoke with Dr. Ding - he is ordering a lovenox bridgeMercy Health Urbana Hospital07-07-2025 NoteProgress Note-Nurse derrell stopped after 4 minutes for blood cultures that are new order. puneet informed.[facility]07-07-2025 NoteProgress Note-Nurse pt [facility] d8id not say before. no saturating properly on at home [address]04-18-2025 Evaluation note* Diagnosis Onset Date Resolution Status Admit Date Atrial flutter acuteApril 2024 10:18amChronic back painacuteApril 2024 10:18amCOPD (chronic obstructive pulmonary disease)acuteApril 2024 10:18amHeart failureacuteApril 2024 10:18amHypertensionacuteApril 2024 10:18am Mixed hyperlipidemiaacuteApril 2024 10:18amNicotine dependenceacuteApril 2024 10:18amNon-complianceacuteApril 2024 10:18amNon-healing wound of left lower extremityacuteApril 2024 10:18amNon-healing wound of right lower extremityacuteApril 2024 10:18amOxygen dependentacuteApril 2024 10:18amRight sided sciaticaacuteApril 2024 10:18amSleep disturbance acuteApril 2024 10:18amStatus post partial amputation of right footacute November 05, 2024 10:18amType 2 diabetes mellitusacuteApril 2024 10:18am Venous insufficiency (chronic) (peripheral)acuteApril 2024 10:18am [facility] Work Phone: 1(331) 577-369402-20-2025 NoteUnKettering Memorial Hospital 09-09-2024 NoteUnKettering Memorial Hospital02-19-2025 NoteAultman Orrville Hospital02-19-2025 NoteAultman [facility] Hospital 09-07-2024 NoteDISCHARGE PLANNING UPDATE Patient now agreeable to SNF placement. Insurance authorization submitted for [facility] in [place]. Awaiting insurance decision.[facility]02-18-2025 NoteUnKettering Memorial Hospital 09-07-2024 NoteUnKettering Memorial Hospital02-18-2025 NoteUnKettering Memorial Hospital02-18-2025 NoteUnKettering Memorial Hospital 09-07-2024 NoteUnKettering Memorial Hospital02-18-2025 NoteAultman [facility] Hospital02-17-2025 NoteA[facility] 09-06-2024 NoteAultman [facility] Hospital02-17-2025 NoteAultman [facility] Hospital02-17-2025 NoteUnKettering Memorial Hospital 09-05-2024 NoteUnKettering Memorial Hospital02-16-2025 NoteUnKettering Memorial Hospital02-15-2025 NoteUnK[facility] Memorial Hospital 09-04-2024 NoteUnKettering Memorial Hospital02-15-2025 NoteUnK[facility]tering Memorial Hospital02-14-2025 NoteUnK[facility] Hospital 09-03-2024 NoteUnK[facility]tering Memorial Hospital02-14-2025 NoteUnK[facility]tering Memorial Hospital02-13-2025 NoteUnK[facility] Hospital 09-02-2024 NoteUnKettering Memorial Hospital02-13-2025 NoteUnKettering Memorial Hospital02-13-2025 NoteUnKettering Memorial Hospital 09-01-2024 NoteDISCHARGE PLANNING UPDATE [facility] ([place], [place]) is [facility]. Per their admissions team, they are submitting to insurance for authorization today, 09/01.[facility] 09-01-2024 NoteAultman Orrville Hospital02-12-2025 NoteA[facility]man [facility] Hospital02-11-2025 NoteA[facility] 08-31-2024 NoteAultman Orr[facility] Hospital02-11-2025 NoteAultman [facility] Hospital02-11-2025 NoteA[facility] 08-30-2024 NoteA[facility]man [facility] Hospital02-10-2025 NoteA[facility]man [facility]02-10-2025 NoteA[facility] 08-30-2024 NoteA[facility]02-09-2025 NoteA[facility]02-08-2025 NoteA[facility] 08-28-2024 NoteA[facility]02-08-2025 NoteA[facility]02-07-2025 NoteA[facility] 08-27-2024 NoteA[facility]02-06-2025 NoteA[facility]02-06-2025 NoteA[facility] 08-26-2024 NoteUnKettering Memorial Hospital02-06-2025 NoteUnKettering Memorial Hospital02-05-2025 NoteUnKettering Memorial Hospital 08-25-2024 NoteUnKettering Memorial Hospital02-05-2025 NoteUnKettering Memorial Hospital02-05-2025 NoteUnKettering Memorial Hospital 08-24-2024 NoteUnKettering Memorial Hospital02-04-2025 NoteUnKettering Memorial Hospital02-04-2025 NoteUnKettering Memorial Hospital 08-24-2024 NotePatient is off unit for testing at this time.[facility]02-04-2025 NoteUnKettering Memorial Hospital02-04-2025 Note [facility]02-04-2025 NoteUnKettering Memorial Hospital02-04-2025 NoteUnKettering Memorial Hospital02-04-2025 Note [facility]02-03-2025 NoteUnK[facility]tering Memorial Hospital02-03-2025 NoteUnKettering Memorial Hospital02-02-2025 Note [facility]02-01-2025 NoteAultman [facility] Hospital02-01-2025 NoteAultman [facility] Hospital01-31-2025 Note [facility]01-31-2025 NoteAultman Orr[facility] Hospital01-30-2025 NoteAultman [facility] Hospital01-29-2025 Note [facility]01-28-2025 NoteUnKettering Memorial Hospital01-28-2025 NoteUnK[facility]tering Memorial Hospital01-27-2025 Note [facility]01-27-2025 NoteUnKettering Memorial Hospital01-27-2025 NoteUnKettering Memorial HospitalEvaluation noteNo assessment information availableThe [facility] Hospital Work Phone: Evaluation note* Diagnosis Onset Date Resolution Status Type 2 diabetes mellitus [facility] Work Phone: Evaluation note* Diagnosis Onset Date Resolution Status COPD (chronic obstructive pulmonary dise ase) acuteHypertensionacuteMRSA cellulitis of right footacuteNicotine dependenceacute Non-complianceacuteOxygen dependentacuteType 2 diabetes mellitusacuteUlcer of right foot due to type 2 diabetes mellitusacute [facility] Work Phone: Evaluation note* Diagnosis Onset Date Resolution Status COPD (chronic obstructive pulmonary dise ase) acuteHypertensionacuteMRSA cellulitis of right footacuteNicotine dependenceacute Non-complianceacuteOxygen dependentacuteType 2 diabetes mellitusacuteUlcer of right foot due to type 2 diabetes mellitusacuteAcute osteomyelitis of footacute [facility] Work Phone: Evaluation note* Diagnosis Onset Date Resolution Status COPD (chronic obstructive pulmonary dise ase) acuteHypertensionacuteMRSA cellulitis of right footacuteNicotine dependenceacute Non-complianceacuteOxygen dependentacuteType 2 diabetes mellitusacuteUlcer of right foot due to type 2 diabetes mellitusacuteAcute osteomyelitis of footacute Low back painacute [facility] Work Phone: Evaluation note* Diagnosis Onset Date Resolution Status Admit Date COPD (chronic obstructive pulmonary dise ase) acuteApril 2024 10:18amHypertensionacuteApril 2024 10:18amMixed hyperlipidemiaacuteApril 2024 10:18amNicotine dependenceacuteApril 2024 10:18amNon-complianceacuteApril 2024 10:18amOxygen dependentacute Bere 2024 10:18amStatus post partial amputation of right footacuteApril 2024 10:18amType 2 diabetes mellitusacuteApril 2024 10:18am [facility] Work Phone: Reason for referral (narrative)No reason for referral information availableHolzer Medical Center [facility] Work Phone: Summary Purpose Family History No Family History Records Found Relationship Condition Age at Onset Recorded Date/T mecca mother Malignant neoplasm of cervix Unknown Advance Directives No Advanced Directives Records Found Advance Directive Response Recorded Date/ Time Advance Directives No March 2:40pm Chief Complaint and Reason for Visit Chief Complaint Admit Date [facility] follow up February 01, [...] Amb Documentation January 27, 2025 8:33 am [facility] follow up February 01, [...] Amb Documentation January 27, 2025 8:33 am [facility] follow up February 01, [...] Unknown referred by Dr Curtis 4 week f/uReason for VisitCOPD (chronic obstructive pulmonary disease) Hypertension MRSA cellulitis of right foot Nicotine dependence Non-compliance Oxygen dependent Type 2 diabetes mellitus Ulcer of right foot due to type 2 diabetes mellitus Acute osteomyelitis of foot Low back pain Chief Complaint Amb Documentation Unknown est, TBH follow up, osteomilitesis right foot Unknown referred by Dr Avelar for VisitCOPD (chronic obstructive pulmonary disease) Hypertension MRSA cellulitis of right foot Nicotine dependence Non-compliance Oxygen dependent Type 2 diabetes mellitus Ulcer of right foot due to type 2 diabetes mellitus Acute osteomyelitis of foot Chief Complaint Amb Documentation Unknown est, TBH follow up, osteomilitesis right foot UnknownReason for VisitCOPD (chronic obstructive pulmonary disease) Hypertension MRSA cellulitis of right foot Nicotine dependence Non-compliance Oxygen dependent Type 2 diabetes mellitus Ulcer of right foot due to type 2 diabetes mellitus Chief Complaint Amb Documentation Unknown est, TBH follow up, osteomilitesis right footReason for VisitType 2 diabetes mellitus Additional Source Comments (unrecognized sect ion and [...] section and content) DATE CREATED AUTHOR 07/19/2022 [facility] DATE CREATED AUTHOR AUTHOR'S ORGANIZ ATION 10/20/2024 [facility] DATE CREATED AUTHOR AUTHOR'S ORGANIZ ATION 01/28/2025 [facility] DATE CREATED AUTHOR AUTHOR'S ORGANIZ ATION 01/29/2025 [facility] DATE CREATED AUTHOR AUTHOR'S ORGANIZ ATION 01/30/2025 [facility] DATE CREATED AUTHOR AUTHOR'S ORGANIZ ATION 02/04/2025 [facility] DATE CREATED AUTHOR AUTHOR'S ORGANIZ ATION 04/01/2025 [facility] DATE CREATED AUTHOR AUTHOR'S ORGANIZ ATION 04/13/2025 [facility] DATE CREATED AUTHOR AUTHOR'S ORGANIZ ATION 05/01/2025 [facility] Care Teams (unrecognized sec tion and content) Team Status: Active Member Role Status Dates Magnolia Chavez LPN Attending Provider Active St art: January 26, 2024 Team Status: Inactive Member Role Status Dates Rc Curtis DPM MS Attending Provider Active Start: March 29, 2024 End: March 29, 2024 Team Status: Active Member Role Status Dates Dara Eisenberg APRN ENVIRONMENTAL AID-C Primary Care Provider Active Team Status: Inactive Member Role Status Dates Dara Eisenberg APRN ENVIRONMENTAL AID-C Primary Care Provider, Attending Provider Active Start: April 05, 2024 End: April 05, 2024 Team Status: Active Member Role Status Dates Dara Eisenberg APRN ENVIRONMENTAL AID-C Primary Care Provider, Attending Provider Active Start: April 08, 2024 Team Status: Inactive Member Role Status Dates Dara Eisenberg APRN ENVIRONMENTAL AID-C Primary Care Provider Active Start: March 212023 End: April 08william Curtis DPM MSAttending ProviderActive Start: April 08, 2024 End: April 08, 2024 Team Status: Inactive Member Role Status Dates Dara Eisenberg APRN ENVIRONMENTAL AID-C Primary Care Provider Active Start: March 222023 End: April 12, 2024Tanya Arenas ProviderActiveStart: April 12, 2024 End: April 12, 2024 Team Status: Inactive Member Role Status Dates Dara Eisenberg APRN ENVIRONMENTAL AID-C Primary Care Provider, Attending Provider Active Start: May 03, 2024 End: May 03, 2024 Team Status: Active Member Role Status Dates Dara Eisenberg APRN ENVIRONMENTAL AID-C Primary Care Provider Active Start: July Shaikh Moon MDAttending ProviderActiveStart: August 14, 2024 Team Status: Active Member Role Status Dates Dara Eisenberg APRN ENVIRONMENTAL AID-C Primary Care Provider Active Start: July Silveriotanner Villareal MDAttending ProviderActiveStart: August 15, 2024 Team Status: Inactive Member Role Status Dates Dara Eisenberg APRN ENVIRONMENTAL AID-C Primary Care Provider, Attending Provider Active Start: November 05, 2024 End: November 05, 2024 Team Status: Inactive Member Role Status Dates Dara Eisenberg APRN ENVIRONMENTAL AID-C Primary Care Provider Active Start: November 05, 2024 End: November 05, 2024Dara Eisenberg APRN ENVIRONMENTAL AID-CAttending ProviderActive Start: November 05, 2024 End: November 05, 2024 Team Status: Active Member Role Status Dates Dara Eisenberg APRN ENVIRONMENTAL AID-C Primary Care Provider Active Start: January 27, 2025 Angelic Blevins CMAAttending ProviderActiveStart: January 27, 2025 Team Status: Inactive Member Role Status Dates Dara Eisenberg APRN ENVIRONMENTAL AID-C Primary Care Provider Active Start: February 01, 2025 End: February 01, 2025Dara Eisenberg APRN ENVIRONMENTAL AID-CAttending ProviderActive Start: February 01, 2025 End: February 01, 2025 Team Status: Active Member Role Status Dates Dara Eisenberg APRN ENVIRONMENTAL AID-C Primary Care Provider Active Start: March 212024 Coco Starr MDAttending ProviderActiveStart: April 05, 2025 Team Status: Inactive Member Role Status Dates Coco Starr MD Attending Provider Active Sta rt: April 05, 2025 End: April 05, 2025 Team Status: Active Member Role Status Dates Dara Eisenberg APRN ENVIRONMENTAL AID-C Primary Care Provider Active Start: March 212024 Erendira Richard MDAttending ProviderActiveStart: April 06, 2025 Team Status: Active Member [...] Member Role Status Dates Dara Eisenberg APRN ENVIRONMENTAL AID-C Primary Care Provider Active Start: March 222024 Angelic Blevins CMAAttending ProviderActiveStart: April 13, 2025 Team Status: Inactive Member Role Status Dates Dara Eisenberg APRN ENVIRONMENTAL AID-C Primary Care Provider Active Start: April 28, 2025 End: April 28, 2025Dara Eisenberg APRN ENVIRONMENTAL AID-CAttending ProviderActive Start: April 28, 2025 End: April [...] BASED ON THE PRIMARY CLINICAL RECORDS. [facility] [employer] provides no warranty or guarantee of the accuracy or completeness of information in this document.
== END 2025-05-10 14:46 | disposition home or self-care (01) ==
LOC: WC 14:45
PROVIDERS: PCP Nurse Practitioner Family; Visit Provider Physician Assistant
DX: I87.313 Chronic venous hypertension (idiopathic) with ulcer of bilateral lower extremity (principal); L97.822 Non-pressure chronic ulcer of other part of left lower leg with fat layer exposed; L97.812 Non-pressure chronic ulcer of other part of right lower leg with fat layer exposed; E11.621 Type 2 diabetes mellitus with foot ulcer; L97.416 Non-pressure chronic ulcer of right heel and midfoot with bone involvement without evidence of necrosis
CPT/HCPCS: 29581

== ENCOUNTER 2025-05-16 13:43 | Emergency (ER) | payer MEDICARE, SELFPAY ==
--- OUTSIDE RECORDS SUMMARY | 2024-04-08 04:15 | XMS_ITS ---
Author Organization The [facility] in [place] Address [address] [place] [address] Care Team Providers Care Chocolate Production Machine Operator Name Role Phone Dara Eisenberg CNP Primary Care Provider U ghassangloria Rc Curtis Unavailable [phone] REASON FOR VISIT RT TMA Encounters Encounter Location Date Provider Diagnosis [facility] OUTPATIENT [address] [place] [address] 04/08/2024 Rc Curtis Plan Of Treatment No Information Progress Notes * Onofre SMITHDOB:1960 ([age] yo M)Acc No.[id number]:04/08/2024 UNLOCKED PROGRESS NOTE Patient:?Onofre SMITH :?Rc Curtis DPM, MSDOB:1960???Age: 63 Y???Sex:MaleDate:4Phone:[phone]:[address] [place], [place] [phone]:Dara Eisenberg CNPChedunia Out:12:18 PM EST * * Electronic signature of Rc Curtis DPM on 05/16/2025 at 02:46 PM EDTSign off status: PendingVisit Status:?CHK (Check Out) * Provider: Los Curtis DPM, MS Date: 0 04/08/2024 Generated for Printing/Faxing/eTransmitting on:?05/16/2025 02:46 PM EDT
[2025-05-16] VITALS (44 sets, daily range): BP systolic 107–160; BP diastolic 64–90; PULSE 0–162; TEMP 37.1; O2SAT 87–96
--- NOTE | 2025-05-16 13:58 | ECG_ITS ---
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 Measurements Intervals [place] Rate: 100 P: 60 LA: 170 QRS: 35 QRSD: 92 T: 73 QT: 310 QTc: 367 Interpretive Statements 1120 Sinus tachycardia 1970 with occasional ectopic premature complexes [address] depression [address] & Twave abnormality 7300 Indeterminate axis 9140 abnormal rhythm ECG Compared to ECG 04/06/2025 05:32:50 ST (T wave) deviation now present Indeterminate axis now present Atrial fibrillation no longer present Left-axis deviation no longer present Electronically Signed On 05-16-2025 18:07:07 EDT by DONALD KATZ M.D.
--- NOTE | 2025-05-16 13:58 | XR_ITS ---
The [address] [address] Patient Name: TYLER SMITH MRN: [id number] date: 1960 Sex: M Assigned Patient Location: ED.MAIN Current Patient Location: ED.MAIN Accession/Order Number: [id number] Exam Date: 05/16/2025 14:28 Report Date: 05/16/2025 14:48 At the request of: HEATHER SHARMA Procedure: XR chest 1V Single view chest: CLINICAL HISTORY: SOB COMPARISON: Chest 04/05/2025 FINDINGS: Cardiomegaly with vascular congestion similar to the prior study. No new consolidation pneumothorax pleural effusion or free air. XR/XR chest 1V IMPRESSION: CHF FINDINGS SIMILAR TO THE PRIOR STUDY. Impression dictated by: Oscar Ashley Jr., D.O. 05/16/2025 2:48 PM Dictation Location: [place] [address] Electronically authenticated by: [id number] Y Date: 05/16/2025 14:48
--- NOTE | 2025-05-16 14:00 | ED_ITS ---
HPI HPI - General Adult General Chief complaint: Chest Pain Stated complaint: SHORTNESS OF BREATH Time Seen by Provider: 05/16/25 13:54 History of Present Illness HPI narrative: 64 year old male presents to the ED via EMS for generalized pain. It has been ongoing, worse today. He has bilateral foot wounds. The dressings were last changed at wound care 05/10/25. He is refusing for ED staff to remove the dressings. Denies fever, chills, weakness. Swelling, erythema noted to right elbow. Pt states he did fall a few weeks ago. Foul odor noted, likely from foot wounds. Pt has had right distal foot amputated. Pt wears [place] oxygen at 5L. Pt has had some SOB today. Denies dizziness, CP. Pt is unable to be admitted at this hospital due to history of violent tendencies; he must be transferred to [facility], per ED staff. Related Data Home Medications ?Medication ?Instructions ?Recorded ?Confirmed gabapentin 300 mg capsule 600 mg PO .QHS 04/05/2503/21 Previous Rx's ?Medication ?Instructions ?Recorded pen needle, diabetic 31 gauge x #50 ea 03/30/2412/03 apixaban 5 mg tablet (Eliquis) 5 mg PO BID #60 tabs atorvastatin 80 mg tablet 80 mg PO .QHS #30 tabs 04/12 digoxin 250 mcg (0.25 mg) tablet 250 mcg PO DAILY #30 tabs 04/12/25 insulin glargine 100 unit/mL (3 45 unit (0.45 mL) subc ut BID #0 mL 04/12/25 mL) subcutaneous pen (Lantus Solostar U-100 Insulin) levofloxacin 500 mg tablet 500 mg PO DAILY 15 days #15 tabs 04/12/25 losartan 25 mg tablet 25 mg PO QD #30 tabs 5 metoprolol tartrate 25 mg tablet 25 mg PO BID #60 tabs 04/12/25 Allergies Allergy/AdvReac Type Severity Reaction Status Date / Time No Known Drug Allergies Allergy Verified 05/16/25 13:59 Opioid HPI Opioid Management Most Recent Opioid Data: Last Pain Scale 10 Today, 15:02 Last Pain Intensity 10 04/12/25, 11:48 Last ED Pain Assessment Today, 14:12 Last MAR Pain Assessment Today, 15:02 Last ORT Total Score 0 04/06/25, 00:07 Last ORT Risk Category Low Risk 04/06/25, 00:07 Review of Systems ROS Constitutional Denies: fever or chills Ears, nose, mouth, and throat Denies: neck pain Cardiovascular Denies: chest pain Respiratory Reports: shortness of breath and cough Gastrointestinal Denies: abdominal pain, nausea, vomiting or diarrhea Genitourinary Denies: painful urination Musculoskeletal Reports: extremity pain and other (Generalized pain) Integumentary/Breast Reports: sores, new lesion and other (Wounds to bilateral feet) Neurological Denies: headache or dizziness [facility] Medical History (Updated 05/16/25 @ 17:53 by Leslie Jones) Encounter for intubation ?Z01.818 - Encounter for other preprocedural examination (ICD-10) Difficult intubation ?T88.4XXA - Failed or difficult intubation, initial encounter (ICD-10) KRISTINE (acute kidney injury) ?N17.9 - Acute kidney failure, unspecified (ICD-10) Chronic kidney disease ?N18.9 - Chronic kidney disease, unspecified (ICD-10) Cardiomyopathy ?I42.9 - Cardiomyopathy, unspecified (ICD-10) Atrial flutter with rapid ventricular response ?I48.92 - Unspecified atrial flutter (ICD-10) Hyperkalemia ?E87.5 - Hyperkalemia (ICD-10) Ulcer of left lower extremity, limited to breakdown of skin ?L97.921 - Non-pressure chronic ulcer of unspecified part of left lower leg limited to breakdown of skin (ICD-10) New onset a-fib ?I48.91 - Unspecified atrial fibrillation (ICD-10) COPD (chronic obstructive pulmonary disease) ?J44.9 - Chronic obstructive pulmonary disease, unspecified (ICD-10) Morbid obesity ?E66.01 - Morbid (severe) obesity due to excess calories (ICD-10) Pneumonia ?J18.9 - Pneumonia, unspecified organism (ICD-10) Type 2 diabetes mellitus with diabetic polyneuropathy ?E11.42 - Type 2 diabetes mellitus with diabetic polyneuropathy (ICD-10) Acute osteomyelitis of right foot ?M86.171 - Other acute osteomyelitis, right ankle and foot (ICD-10) Abscess of right foot ?L02.611 - Cutaneous abscess of right foot (ICD-10) Cellulitis ?L03.90 - Cellulitis, unspecified (ICD-10) Edema, peripheral ?R60.0 - Localized edema (ICD-10) Upper respiratory infection ?J06.9 - Acute upper respiratory infection, unspecified (ICD-10) MURALI (obstructive sleep apnea) ?G47.33 - Obstructive sleep apnea (adult) (pediatric) (ICD-10) Smoker ?F17.200 - Nicotine dependence, unspecified, uncomplicated (ICD-10) Chronic respiratory failure with hypoxia ?J96.11 - Chronic respiratory failure with hypoxia (ICD-10) Dizziness ?R42 - Dizziness and giddiness (ICD-10) Diabetes ?E11.9 - Type 2 diabetes mellitus without complications (ICD-10) Surgical History H/O hernia repair ?Z98.890 - Other specified postprocedural states (ICD-10) ?Z87.19 - Personal history of other diseases of the digestive system (ICD-10) History of tonsillectomy ?Z90.89 - Acquired absence of other organs (ICD-10) History of appendectomy ?Z90.49 - Acquired absence of other specified parts of digestive tract (ICD- 10) Family History Grandfather Family history of CHF (congestive heart failure) Family history of diabetes mellitus Family history of hypertension Family history of myocardial infarction Family history of stroke Mother Family history of cancer Social History Within the past year, how often did you have a drink containing alcohol: never Score interpretation: A score less than 4 is consistent with normal alcohol consumption. 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 Highest level of school completed/degree received: 10th grade Are you now , , , , never or living with a partner: Little interest or pleasure in doing things: not at all Feeling down, depressed, or hopeless: not at all Feel stressed/tense/nervous/anxious/difficulty sleeping: not at all Exam Constitutional Vital Signs, click to edit/add: Last Vital Signs Temp 98.7 F 05/16/25 14:00 Pulse 139 H 10/27/25 19:10 Resp 27 H 05/16/25 19:10 BP 111/71 05/16/25 18:30 Pulse Ox 88 L 05/16/25 18:30 O2 Del Method Nasal Cannula 05/16/25 14:00 O2 Flow Rate 5 05/16/25 14:00 Common normals: no apparent distress and oriented x3 General appearance: not in distress HENMT Common normals: moist oral mucous membranes Eye Common normals: conjunctivae normal and no scleral icterus Neck & C-Spine Common normals: supple Respiratory Effort & inspection: able to speak in complete sentences and tachypneic Auscultation: diminished lung sounds Cardio Common normals: regular rate Extremity Other: Chronic-appearing discoloration with flaking of skin noted to bilateral lower legs, feet. No open areas to left lower leg/foot noted at this time. Right distal foot amputated. There is an open, draining wound to the stump. Bone is visible. Purulent drainage. Maggots noted in the wound. Erythema, swelling to right posterior elbow. Appears to be dried, purulent drainage to the area. Area nontender. No obvious deformity. Neuro Common normals: oriented x3 and moves all extremities Sensorium/orientation: awake and alert Speech: speech normal Course Vital Signs Vital signs: Vital Signs Pulse Rate 100 H 05/16/25 13:48 Respiratory Rate 16 05/16/25 13:48 Temperature 98.7 F 05/16/25 14:00 Pulse Rate 139 H 05/16/25 19:10 Respiratory Rate 27 H 05/16/25 19:10 Blood Pressure 111/71 05/16/25 18:30 Pulse Oximetry 88 L 05/16/25 18:30 Oxygen Delivery Method Nasal Cannula 05/16/25 14:00 Oxygen Delivery Flow Rate 5 05/16/25 14:00 Medical Decision Making MDM Narrative Medical decision making narrative: The patient has hx CHF, COPD, a-fib, and DM. He presented today with generalized pain. WBC count was 18.1. Glucose was 423, BNP 45. Lactic acid was 0.9. He was started on IV antibiotics; Zosyn and Vancomycin were given. He was given morphine with improvement in his pain. Chest x-ray showed CHF. He was given IV Lasix. He was also given IV solu-medrol. He refused a breathing treatment. Sepsis fluid bolus was not given due to volume overload. The patient did not allow ED staff to remove his foot/leg dressings. His regular wound care nurse did come to the ED to remove the dressings which he allowed. She reported the left leg appears improved. The open area on the plantar surface of the right foot stump has worsened with purulent drainage, foul odor, and maggots. She reported there was not drainage from the wound last week and the bone was not visible. The wound care nurse applied new dressings to the lower legs/feet after completing wound care. Needle aspiration was done to remove 45 mLs of purulent drainage from the right posterior elbow. This was done under sterile procedure. The area was cleansed with betadine x3. A #18G needled was used. He tolerated the procedure well. A dressing was then applied. The patient presented to the ED in sinus tachycardia; HR 100s. He developed a- fib with RVR while in the ED; HR was in the 140s-150s. He was given a Cardizem bolus and placed on a Cardizem drip. The patient is unable to be admitted at [facility] due to his history of violent tendencies. He will need to be transferred to [facility] were security is available per hospital administration. I spoke with Dr. Amira Jc who accepted the patient for transfer to [facility]. The patient was in agreement with the plan of care and transfer. Medical Records Medical records reviewed: Yes I reviewed the patient's medical records Lab Data Lab results reviewed: Yes I reviewed the patient's lab results Labs: Lab Results 05/16/25 05/16/25 Range/Units 14:12 16:32 WBC 18.1 H (4.0-11.0) 10^3/uL RBC 3.99 L (4.70-6.10) 10^6/uL Hgb 11.6 L (14.0-18.0) g/dL Hct 37.2 L (42.0-54.0) % MCV 93.2 (80.0-94.0) fL MCH 29.1 (25.9-34.0) pg MCHC 31.2 (29.9-35.2) g/dL RDW 16.4 H (11.0-15.0) % Plt Count 489 H (150-450) 10^3/uL MPV 10.3 (9.5-13.5) fL Seg Neuts % (Manual) 85.0 H (43.0-75.0) Band Neutrophils % 2.0 (0-5) % Lymphocytes % (Manual) 9.0 L (20.5-60.0) % Monocytes % (Manual) 4.0 (1.7-12.0) % Eosinophils % (Manual) 0.0 L (0.9-7.0) % Basophils % (Manual) 0.0 L (0.2-2.0) % Neutrophils # (Manual) 15.38 H (1.4-6.5) 10^3/uL Band Neutrophils # 0.4 H (0.0-0.3) 10^3/uL Lymphocytes # (Manual) 1.62 (1.20-3.80) 10^3/uL Monocytes # (Manual) 0.72 (0.30-0.80) 10^3/uL Eosinophils # (Manual) 0.00 (0.00-0.70) 10^3/uL Basophils # (Manual) 0.00 (0.00-0.10) 10^3/uL PT 11.1 (9.0-11.6) sec INR 1.05 Sodium 132 L (136-145) mmol/L Potassium 4.1 (3.5-5.1) mmol/L Chloride 91 L (98-107) mmol/L Carbon Dioxide 35.5 H (21.0-32.0) mmol/L Anion Gap 9.6 BUN 12.0 (7.0-18.0) mg/dL Creatinine 1.03 (0.70-1.30) mg/dL Est GFR ( Amer) >60 (>=60 mL/min/1.73m^2) Est GFR (Non-Af Amer) >60 (>=60 mL/min/1.73m^2) BUN/Creatinine Ratio 11.7 Glucose 423 H (74-106) mg/dL Lactate 0.9 (0.4-2.0) mmol/L Calcium 10.1 (8.5-10.1) mg/dL Total Bilirubin 0.6 (0.2-1.0) mg/dL AST 22 (15-37) U/L ALT 19 (16-63) U/L Alkaline Phosphatase 137 H (46-116) U/L Troponin I High Sens 5.2 (4.0-76.1) pg/mL NT-Pro-B Natriuret Pep 445.0 (<=900.0) pg/mL Total Protein 8.0 (6.4-8.2) g/dL Albumin 1.7 L (3.4-5.0) g/dL Globulin 6.3 g/dL Albumin/Globulin Ratio 0.3 Ref Lab Order Date 05/16/25 Ref Lab Test Name Synovial fluid Ref Test Addition Info [facility] Imaging Data XR: Attestation: I have reviewed the pertinent imaging results. Radiologist's impression: ITS Impressions Chest X-Ray 05/16/25 13:58 IMPRESSION: CHF FINDINGS SIMILAR TO THE PRIOR STUDY. Impression dictated by: Oscar Ashley Jr., D.O. 05/16/2025 2:48 PM Dictation Location: [facility] Electronically authenticated by: [id number] Y Date: 05/16/2025 14:48 Elbow X-Ray 05/16/25 15:21 IMPRESSION: Diffuse soft tissue swelling with suspected bursal fluid collection along the olecranon. No definite acute osseous abnormality. Impression dictated by: Anthony Watts M.D. 05/16/2025 5:22 PM Dictation Location: [facility] Electronically authenticated by: [id number] Y Date: 05/16/2025 17:22 Foot X-Ray 05/16/25 15:33 IMPRESSION: POSTSURGICAL CHANGES STATUS POST AMPUTATION WITH FINDINGS WORRISOME FOR PROGRESSIVE OSTEOMYELITIS INVOLVING THE LATERAL RESIDUAL MIDFOOT FOOT Impression dictated by: Anthony Watts M.D. 05/16/2025 5:17 PM Dictation Location: [employer] Electronically authenticated by: [id number] Y Date: 05/16/2025 17:17 ECG Data Attestation: ?I have reviewed the pertinent ECG results. Interpretation: Measurements Intervals [place] Rate: 100 P: 60 [place]: 170 QRS: 35 QRSD: 92 T: 73 QT: 310 QTc: 367 Interpretive Statements 1120 Sinus tachycardia 1970 with occasional ectopic premature complexes [address] depression [address] & Twave abnormality 7300 Indeterminate axis 9140 abnormal rhythm ECG Compared to ECG 04/06/2025 05:32:50 ST (T wave) deviation now present Indeterminate axis now present Atrial fibrillation no longer present Left-axis deviation no longer present Electronically Signed On 05-16-2025 18:07:07 EDT by DONALD KATZ M.D. Measurements Intervals [place] Rate: 155 P: -00230 WA: -27385 QRS: 41 QRSD: 86 T: 203 QT: 262 QTc: 349 Interpretive Statements 16990 Atrial fibrillation with rapid ventricular response [address] depression, probably digitalis effect 88771 Twave abnormality, possible inferior ischemia or digitalis effect 9150 abnormal ECG Compared to ECG 05/16/2025 13:49:37 Possible ischemia now present Sinus tachycardia no longer present Indeterminate axis no longer present ST (T wave) deviation still present Electronically Signed On 05-16-2025 18:07:33 EDT by DONALD KATZ M.D. Discharge Plan Discharge Chief Complaint: Chest Pain Clinical Impression: Cellulitis, Acute osteomyelitis of right foot, Infection of right elbow, CHF (congestive heart failure), Atrial fibrillation with RVR Patient Disposition: [facility] Time of Disposition Decision: 19:00 Discharge Location: [facility] Condition: Good Mode of Transportation: EMS Procedures ED ID Incision & Drainage I&D Type: abcess Site: upper extremity (Right posterior elbow) Side (if applicable): right Sedation/analgesia: none Technique: needle aspiration Amount of fluid (mL): 45
--- NOTE | 2025-05-16 14:26 | PC.NURSE ---
Pt denied breathing treatment by squad Pt also refused aspirin from [facility] When moved to ER bed - bugs were noted Pt placed on our oxygen tubing and set at 5l as this is what patient states he always wears Pt states that this nurse needs to call his wound care nurse to come take care of his feet as the nurses here at [place] never do it right pt loud and frustrated, repeatedly stating he needs pain medication Pt palpates his upper abdomen when complaining of pain and states it feels like it is trying to push through
--- OUTSIDE RECORDS SUMMARY | 2025-05-16 14:28 | XMS_ITS | CCD ---
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 [#/Vol]13.8 10 3/uLHigh4.0-11.0[facility] HospitalMCH Auto (RBC) [Entitic mass]Ordered By: Erendira Richard on 99-14-9374NZE (RBC) [Entitic mass]30.9 pg25.9-34.0[facility] HospitalMCHC Auto (RBC) [Mass/Vol] Ordered By: Erendira Richard on 70-45-8066CYEG (RBC) [Mass/Vol]32.2 g/dL29.9-35.2 [facility] HospitalMCV Auto (RBC) [Entitic vol]Ordered By: Erendira Richard on 22-04-7067PYG (RBC) [Entitic vol]96.1 kCFiev26.0-94.0[facility] HospitalPlatelet mean volume Auto (Bld) [Entitic vol]Ordered By: Erendira Richard on 49-05-9678Iknkxljh mean volume (Bld) [Entitic vol]10.8 fL 9.5-13.5FSelect Medical Specialty Hospital - Columbus SouthPlatelets Auto (Bld) [#/Vol]Ordered By: Erendira Richard on 57-85-2913Ppcvyrgbo (Bld) [#/Vol]306 10 3/vD450-580JshkayactMercy Health West HospitalRBC Auto (Bld) [#/Vol]Ordered By: Erendira Richard on 59-73-7018NVK (Bld) [#/Vol]4.40 10 6/uLLow4.70-6.10[facility] Avonerum or plasma anion gap determinationOrdered By: Erendira Richard on 17-40-1319Uveza gap [Moles/Vol]7.2 mmol/LFSelect Medical [facility]ty Hospital [facility] Erythrocyte distribution width Auto (RBC) [Ratio]Ordered By: Erendira Richard on 15-42-3469Zmzufwmsepb distribution width (RBC) [Ratio]14.7 %11.0-15.0[facility] HospitalGlomerular filtration rate (GFR) estimation in non- AmericanOrdered By: Erendira Richard on 30-76-4924YFU/1.73 sq M.predicted among non-blacks MDRD (S/P/Bld) [Vol rate/Area]mL/min/{1.73_m2}>=60 mL/min/1.73m 2FSelect Medical Specialty Hospital - Columbus SouthHematocrit Auto (Bld) [Volume fraction]Ordered By: Erendira Richard on 38-64-7784Exyrhlzxyh (Bld) [Volume fraction]41.1 %Low 42.0-54.0[facility] HospitalHemoglobin [Mass/volume] in Blood Ordered By: Erendira Richard on 78-55-9787Kzlohukjzw (Bld) [Mass/Vol]13.5 g/dLLow 14.0-18.0[facility] HospitalLaboratory - Chemistry and Chemistry - challengeOrdered By: Erendira Richard on 07-07-6668Hkrilzn [Mass/Vol]9.0 mg/dL 8.5-10.1FSelect Medical Specialty Hospital - Columbus SouthChloride [Moles/Vol]97 mmol/VRuh82-352 [facility] HospitalCO2 [Moles/Vol]33.8 mmol/LHigh21.0-32.0 [facility] HospitalCreatinine [Mass/Vol]1.03 mg/dL0.70-1.30 [facility] HospitalGFR/1.73 sq M.predicted MDRD (S/P/Bld) [Vol rate/Area]mL/min/{1.73_m2}>=60 mL/min/1.73m 2FSelect Medical Specialty Hospital - [facility] Glucose [Mass/Vol]314 mg/fXFkmf37-246SmfhepkdkMercy Health West HospitalPotassium [Moles/Vol]3.6 mmol/L3.5-5.1FCommunity Memorial Hospitalodium [Moles/Vol] 135 mmol/YOnv059-214VlybfpynvMercy Health West HospitalUrea nitrogen [Mass/Vol] 29.0 mg/dLHigh7.0-18.0[facility] HospitalUrea nitrogen/Creatinine [Mass ratio]28.2 mg/mgMercy Health West HospitalLeukocytes [#/volume] corrected for nucleated erythrocytes in Blood by Automated counOrdered By: Erendira Richard on 87-45-7301AJT corrected for nucl RBC Auto (Bld) [#/Vol]18.7 10 3/uL High4.0-11.0[facility] Auto (RBC) [Entitic mass] Ordered By: Erendira Richard on 08-09-0680ARO (RBC) [Entitic mass]30.7 pg25.9-34.0 [facility] HospitalMCHC Auto (RBC) [Mass/Vol]Ordered By: Erendira Richard on 53-44-2181TEBZ (RBC) [Mass/Vol]32.8 g/dL29.9-35.2FSelect Medical Specialty Hospital - [facility] SouthMCV Auto (RBC) [Entitic vol]Ordered By: Erendira Richard on 40-29-0181YRS (RBC) [Entitic vol]93.4 fL80.0-94.0[facility] HospitalNo Panel InformationOrdered By: Erendira Richard on 92-59-9426Beneqedhoy Level Fhbkpq26.2 ug/mL5.0-20.0[facility] HospitalPlatelet mean volume Auto (Bld) [Entitic vol]Ordered By: Erendira Richard on 40-89-3081Gqlbrkpm mean volume (Bld) [Entitic vol]11.1 fL9.5-13.5FSelect Medical Specialty Hospital - [facility] Platelets Auto (Bld) [#/Vol]Ordered By: Erendira Richard on 74-99-0947Enfnmtxls (Bld) [#/Vol]294 10 3/lP741-260SqgurlugbMercy Health West HospitalRBC Auto (Bld) [#/Vol]Ordered By: Erendira Richard on 08-06-9379GWP (Bld) [#/Vol]4.40 10 6/uLLow 4.70-6.10[facility] Avonerum or plasma anion gap determinationOrdered By: Erendira Richard on 50-40-8742Rsour gap [Moles/Vol]7.8 mmol/LFSelect Medical Specialty Hospital - [facility] SouthBasophils Auto (Bld) [#/Vol]Ordered By: Erendira Richard on 47-42-6628Fdithnpnw (Bld) [#/Vol]0.0 10 3/uL0.0-0.1FSelect Medical Specialty Hospital - Columbus SouthBasophils/100 WBC Auto (Bld)Ordered By: Ernedira Richard on 00-33-7493Ymjpcwjli/100 WBC (Bld)0.1 %Low0.2-2.0[facility] HospitalEosinophils/100 WBC Auto (Bld)Ordered By: Erendira Richard on 09-17-2025 Eosinophils/100 WBC (Bld)0.0 %Low0.9-7.0[facility] Erythrocyte distribution width Auto (RBC) [Ratio]Ordered By: Erendira Richard on 85-27-1624Dbucuqzfknh distribution width (RBC) [Ratio]14.8 %11.0-15.0[facility] HospitalGlobulin Calc (S) [Mass/Vol]Ordered By: Erendira Richard on 98-66-0811Jpwyyqpx (S) [Mass/Vol]5.3 g/dLMercy Health West Hospital Glomerular filtration rate (GFR) estimation in non- AmericanOrdered By: Erendira Richard on 23-31-6308PZW/1.73 sq M.predicted among non-blacks MDRD (S/P/Bld) [Vol rate/Area]54 mL/min/{1.73_m2}Low>=60 mL/min/1.73m 2FSelect Medical Specialty Hospital - Columbus SouthHematocrit Auto (Bld) [Volume fraction]Ordered By: Erendira Richard on 78-02-8297Tdtluxpjib (Bld) [Volume fraction]40.8 %Low42.0-54.0 [facility] HospitalHemoglobin [Mass/volume] in BloodOrdered By: Erendira Richard on 11-41-6110Nkdplesodb (Bld) [Mass/Vol]14.0 g/dL14.0-18.0 [facility] HospitalLaboratory - Chemistry and Chemistry - challengeOrdered By: Erendira Richard on 81-39-4799Krkuhbp [Mass/Vol]530 mg/dL Critically gqza79-245WphjqnfdcMercy Health West HospitalComment on above:RESULTS CALLED TO ASHLEY LEÓN RN @BY Gely Bradley at 2259Albumin [Mass/Vol] 1.8 g/dLLow3.4-5.0[facility] HospitalALP [Catalytic activity/Vol] 127 U/ZYznf21-281VpckkphjaMercy Health West HospitalALT [Catalytic activity/Vol]13 U/PRce53-17SensjxjnoMercy Health West HospitalAST [Catalytic activity/Vol]15 U/L 15-37[facility] HospitalBilirubin [Mass/Vol]0.9 mg/dL0.2-1.0 [facility] HospitalCalcium [Mass/Vol]9.7 mg/dL8.5-10.1FSelect Medical Specialty Hospital - Columbus SouthChloride [Moles/Vol]94 mmol/FWil94-335BvvphssuhMercy Health West HospitalCO2 [Moles/Vol]31.1 mmol/L21.0-32.0[facility] HospitalCreatinine [Mass/Vol]1.33 mg/dLHigh0.70-1.30[facility] HospitalGFR/1.73 sq M.predicted MDRD (S/P/Bld) [Vol rate/Area]mL/min/{1.73_m2}>=60 mL/min/1.73m 2FSelect Medical Specialty Hospital - Columbus SouthMagnesium [Mass/Vol]2.0 mg/dL 1.8-2.4FSelect Medical Specialty Hospital - Columbus SouthPotassium [Moles/Vol]3.5 mmol/L3.5-5.1 [facility] HospitalProtein [Mass/Vol]7.1 g/dL6.4-8.2FCommunity Memorial Hospitalodium [Moles/Vol]130 mmol/EBoo289-484JhmhvmpnjMercy Health West HospitalUrea nitrogen [Mass/Vol]33.0 mg/dLHigh7.0-18.0[facility] HospitalUrea nitrogen/Creatinine [Mass ratio]24.8 mg/mgMercy Health West HospitalLaboratory - Hematology and Cell countsOrdered By: Erendira Richard on 27-35-4506Uvdvpkpp granulocytes/100 WBC (Bld)0.8 %High0.0-0.5FSelect Medical Specialty Hospital - Columbus SouthLeukocytes [#/volume] corrected for nucleated erythrocytes in Blood by Automated counOrdered By: Erendira Richard on 04-06-2025 WBC corrected for nucl RBC Auto (Bld) [#/Vol]17.8 10 3/uLHigh4.0-11.0[facility] HospitalLymphocytes Auto (Bld) [#/Vol]Ordered By: Erendira Richard on 46-53-9624Dbdfedynzuc (Bld) [#/Vol]0.5 10 3/uLLow1.2-3.8[facility] HospitalLymphocytes/100 WBC Auto (Bld)Ordered By: Erendira Richard on 51-89-9971Hwwhiwvbwgn/100 WBC (Bld)2.9 %Low20.5-60.0[facility] HospitalMCH Auto (RBC) [Entitic mass]Ordered By: Erendira Richard on 60-99-8058CPI (RBC) [Entitic mass]31.5 pg25.9-34.0[facility] HospitalMCHC Auto (RBC) [Mass/Vol]Ordered By: Erendira Richard on 31-52-8436VXJK (RBC) [Mass/Vol]34.3 g/dL29.9-35.2FSelect Medical Specialty Hospital - Columbus SouthMCV Auto (RBC) [Entitic vol] Ordered By: Erendira Richard on 07-79-9471BKB (RBC) [Entitic vol]91.9 fL80.0-94.0 [facility] HospitalMonocytes Auto (Bld) [#/Vol]Ordered By: Erendira Richard on 63-59-1496Aniqsdjym (Bld) [#/Vol]0.9 10 3/uLHigh0.3-0.8[facility] HospitalMonocytes/100 WBC Auto (Bld)Ordered By: Erendira Richard on 46-68-4594Sanfyouwb/100 WBC (Bld)5.1 %1.7-12.0[facility] Neutrophils Auto (Bld) [#/Vol]Ordered By: Erendira Richard on 72-97-6712Cuobzsnyyom (Bld) [#/Vol]16.2 10 3/uLHigh1.4-6.5FSelect Medical Specialty Hospital - [facility] Neutrophils/100 WBC Auto (Bld)Ordered By: Erendira Richard on 04-06-2025 Neutrophils/100 WBC (Bld)91.1 %High43.0-75.0[facility] HospitalNo Panel InformationOrdered By: Erendira Richard on 10-33-2702Jriydlmrarr # (Auto)0.0 10 3/uL0.0-0.7FSelect Medical Specialty Hospital - Columbus SouthImmature Granulocyte # (Auto)0.14 10 3/uLHigh0.00-0.03[facility] HospitalTroponin I High Sensitivity6.3 pg/mL4.0-76.1FSelect Medical Specialty Hospital - Columbus SouthComment on above: CUT-OFF POINTS HAVE BEEN ESTABLISHED [...] (Bld) [Entitic vol]Ordered By: Erendira Richard on 57-05-9044Dbahvmyw mean volume (Bld) [Entitic vol]11.0 fL 9.5-13.5FSelect Medical Specialty Hospital - Columbus SouthPlatelets Auto (Bld) [#/Vol]Ordered By: Erendira Richard on 63-64-1623Ktajxeaxt (Bld) [#/Vol]268 10 3/iJ842-679SwharemvjMercy Health West HospitalRBC Auto (Bld) [#/Vol]Ordered By: Erendira Richard on 98-03-9501JWA (Bld) [#/Vol]4.44 10 6/uLLow4.70-6.10[facility] Avonerum or plasma albumin/globulin mass ratioOrdered By: Erendira Richard on 91-90-8155Ydgalhn/Globulin [Mass ratio]0.3 {ratio}[facility] Avonerum or plasma anion gap determinationOrdered By: Erendira Richard on 72-56-7780Ackod gap [Moles/Vol]8.4 mmol/LFSelect Medical Specialty Hospital - [facility] Basophils/100 WBC Manual cnt (Bld)Ordered By: Coco Starr on 04-05-2025 Basophils/100 WBC (Bld)1.0 %0.2-2.0[facility] Eosinophils/100 WBC Manual cnt (Bld)Ordered By: Coco Starr on 04-05-2025 Eosinophils/100 WBC (Bld)0.0 %Low0.9-7.0[facility] Erythrocyte distribution width Auto (RBC) [Ratio]Ordered By: Coco Starr on 23-25-2711Bqiqdkbzibk distribution width (RBC) [Ratio]14.8 %11.0-15.0[facility] HospitalGlobulin Calc (S) [Mass/Vol]Ordered By: Coco Starr on 97-76-2537Maznwlln (S) [Mass/Vol]5.6 g/dLMercy Health West Hospital Glomerular filtration rate (GFR) estimation in non- AmericanOrdered By: Coco Starr on 64-87-0102VDN/1.73 sq M.predicted among non-blacks MDRD (S/P/Bld) [Vol rate/Area]49 mL/min/{1.73_m2}Low>=60 mL/min/1.73m 2FSelect Medical Specialty Hospital - Columbus SouthHematocrit Auto (Bld) [Volume fraction]Ordered By: Coco Starr on 48-96-0722Adclmwtrwk (Bld) [Volume fraction]43.2 %42.0-54.0[facility] HospitalHemoglobin [Mass/volume] in BloodOrdered By: Coco Starr on 11-77-2072Tixqcmfoiv (Bld) [Mass/Vol]14.9 g/dL14.0-18.0[facility] HospitalINR in Platelet poor plasma by Coagulation assayOrdered By: Coco Starr on 97-94-9180CST Coag (PPP) [Relative time]1.04 {INR}[facility] HospitalComment on above:DESIRED INR:2.0-3.0 CONDITIONS NOT LISTED BELOW2.5-3.5 FOR PROSTHETIC HEART VALVE REPLACEMENT2.5-3.5 RECURRENT THROMBOSIS Laboratory - Chemistry and Chemistry - challengeOrdered By: Nyasia Hadley on 15-24-6316Ptatbdc [Moles/Vol]1.4 mmol/L0.4-2.0[facility] HospitalNatriuretic peptide B (Bld) [Mass/Vol]312.0 pg/mL<=900.0[facility] HospitalBilirubin Ql (U)NegativeNEGATIVEMercy Health West Hospital Glucose (U) [Mass/Vol]mg/dLAbnormalNEGATIVEMercy Health West Hospital Ketones Ql (U)NegativeNEGATIVEMercy Health West HospitalpH (U)6.0 [pH] 5.0-9.0[facility], Avonpecific gravity (U) [Rel density]1.010 1.005-1.025[facility] HospitalUrobilinogen Qn (U)0.2 {Madelin'U}/dL0.2-1.0[facility] HospitalLaboratory - Chemistry and Chemistry - challengeOrdered By: Coco Diab on 87-48-8688Hirosoh [Mass/Vol]2.1 g/dLLow3.4-5.0[facility] HospitalALP [Catalytic activity/Vol]143 U/ZHrli63-525ZbcfxpekgMercy Health West HospitalALT [Catalytic activity/Vol]14 U/L Ujl16-76QarwyiikbMercy Health West HospitalAST [Catalytic activity/Vol]11 U/LLow 15-37[facility] HospitalBilirubin [Mass/Vol]1.5 mg/dLHigh0.2-1.0 [facility] HospitalCalcium [Mass/Vol]10.1 mg/dL8.5-10.1FSelect Medical Specialty Hospital - Columbus SouthChloride [Moles/Vol]89 mmol/DEux76-430XqalmrtphMercy Health West HospitalCO2 [Moles/Vol]29.3 mmol/L21.0-32.0[facility] HospitalCreatinine [Mass/Vol]1.45 mg/dLHigh0.70-1.30[facility] HospitalGFR/1.73 sq M.predicted MDRD (S/P/Bld) [Vol rate/Area]59 mL/min/{1.73_m2} Low>=60 mL/min/1.73m 2FSelect Medical Specialty Hospital - Columbus SouthGlucose [Mass/Vol]499 mg/hQNkgq76-883MyhzspuloMercy Health West HospitalPotassium [Moles/Vol]4.0 mmol/L 3.5-5.1FSelect Medical Specialty Hospital - Columbus SouthProtein [Mass/Vol]7.7 g/dL6.4-8.2 [facility], Avonodium [Moles/Vol]125 mmol/OOam616-817GdnoyprukMercy Health West HospitalUrea nitrogen [Mass/Vol]29.0 mg/dLHigh7.0-18.0[facility] HospitalUrea nitrogen/Creatinine [Mass ratio]20.0 mg/mgMercy Health West HospitalLaboratory - Hematology and Cell countsOrdered By: Coco Starr on 60-40-5008Uvnejqmgawb/100 WBC (Bld)4.0 %Low20.5-60.0[facility] HospitalMonocytes/100 WBC (Bld)7.0 %1.7-12.0[facility] HospitalLaboratory - Microbiology and Antimicrobial susceptibilityOrdered By: Nyasia Hadley on 22-70-9614XDUR-CoV-2 (COVID-19) RNA GRACE+probe Ql (Unsp spec)NegativeNEGATIVEMercy Health West HospitalComment on above:This test has not been FDA [...] - Specimen informationOrdered By: Nyasia Hadley on 66-34-2843Vsuxkeobji (U)SL CLOUDYCLEARFSelect Medical Specialty Hospital - Columbus SouthColor (U)LT. YELLOWYELLOWMercy Health West HospitalLaboratory - Urinalysis Ordered By: Nyasia Hadley on 94-11-1059Saxsxpvdw esterase Test strip Ql (U) TRACEAbnormalNEGATIVEMercy Health West HospitalMucus Ql (Urine sed)NONE SEENNONE SEENMercy Health West HospitalNitrite Ql (U)NegativeNEGATIVE [facility] HospitalProtein Ql (U)30 mg/dLAbnormalNEG/TRACE [facility] HospitalLeukocytes [#/volume] corrected for nucleated erythrocytes in Blood by Automated counOrdered By: Coco Starr on 36-21-3202CDB corrected for nucl RBC Auto (Bld) [#/Vol]18.6 10 3/uLHigh4.0-11.0[facility] Auto (RBC) [Entitic mass]Ordered By: Coco Ro on 41-64-4248GMH (RBC) [Entitic mass]31.2 pg25.9-34.0[facility] HospitalHC Auto (RBC) [Mass/Vol]Ordered By: Coco Ro on 90-17-2712MKLV (RBC) [Mass/Vol]34.5 g/dL29.9-35.2FHolzer Medical Center – JacksonV Auto (RBC) [Entitic vol]Ordered By: Coco Ro on 73-07-4035EBV (RBC) [Entitic vol]90.4 fL 80.0-94.0[facility] HospitalNo Panel InformationOrdered By: Nyasia Hadley on 10-57-9791Jpaysgjo I High Sensitivity7.2 pg/mL4.0-76.1 [facility] HospitalComment on above:CUT-OFF POINTS HAVE BEEN ESTABLISHED BASED [...] DIAGNOSTIC AND CLINICAL INFORMATION.Urine Bacteria MODERATE #/HPFAbnormalNONE SEENMercy Health West HospitalUrine Culture ReflexedAULTMAN HOSPITAL-FRMercy Health Lorain HospitalUrine Microscopic ReviewMain Campus Medical CenterUrine Occult BloodLARGEAbnormalNEGATIVE [facility] HospitalUrine Other CastsNONE SEEN #/LPFNONE SEEN [facility] HospitalUrine Other CrystalsNone Seen #/HPFNone Seen [facility] HospitalUrine NKM79-33 #/HPFAbnormal0-2FSelect Medical Specialty Hospital - Columbus SouthUrine Squamous Epithelial CellsRARE #/LPFNONE/RARE [facility] HospitalUrine DES99-46 #/HPFAbnormalNONE SEENMercy Health West HospitalNo Panel InformationOrdered By: Coco Starr on 04-05-2025 Absolute Basophils (Manual)0.18 10 3/uLHigh0.00-0.10[facility] HospitalEosinophils # (Manual)0.00 10 3/uL0.00-0.70[facility] HospitalLymphocytes # (Manual)0.74 10 3/uLLow1.20-3.80[facility] HospitalMonocytes # (Manual)1.30 10 3/uLHigh0.30-0.80[facility], Avonegmented Neutrophils # (Manual)16.36 10 3/uLHigh1.4-6.5FSelect Medical Specialty Hospital - Columbus SouthPlatelet mean volume Auto (Bld) [Entitic vol]Ordered By: Coco Starr on 64-41-5148Plssblaa mean volume (Bld) [Entitic vol]11.8 fL9.5-13.5 [facility] HospitalPlatelets Auto (Bld) [#/Vol]Ordered By: Coco Starr on 59-09-0743Hpdhfmsml (Bld) [#/Vol]284 10 3/gK934-227BxciwzzjyMercy Health West HospitalProthrombin time (PT)Ordered By: Coco Starr on 86-51-2978QE Coag (PPP) [Time]11.0 s9.0-11.6FSelect Medical Specialty Hospital - Columbus SouthRBC Auto (Bld) [#/Vol]Ordered By: Coco Starr on 33-22-1979VFQ (Bld) [#/Vol]4.78 10 6/uL 4.70-6.10[facility], Avonegmented neutrophils/100 WBC Manual cnt (Bld)Ordered By: Coco Starr on 01-90-7284Loeqaufoo neutrophils/100 WBC (Bld)88.0 %High43.0-75.0[facility] Avonerum or plasma albumin/globulin mass ratioOrdered By: Coco Starr on 53-52-4166Wuswrva/Globulin [Mass ratio]0.4 {ratio}[facility] Avonerum or plasma anion gap determinationOrdered By: Coco Starr on 17-62-0604Lvpip gap [Moles/Vol]10.7 mmol/LFSelect Medical Specialty Hospital - Columbus SouthUrine Cultureon 27-30-3378Zxnpadxm identified Cx Nom (U)ORGANISM: Enterobacter cloacae complex (O:ENTCLOCPLX) [place] Count >100,000 Aerobic CHEN Charge (NMIC56) SUSCEPTIBILITY [...] RESISTANT TO ALL B-LACTAM DRUGS. PERFORMED BY: [facility] [address] [place] [address] PATHOLOGIST CLIENT PROFESSIONAL ISAAK DURBIN M.D.NormalTri-County Hospital - Williston Physician GroupComment on above: Performed By: #### CUU #### [facility] [address] [place] [address] USAUrine cultureOrdered By: Coco Starr on 72-84-0224Fncyzbwn identified Cx Nom (U)Enterobacter cloacae complexAbRiverview Health InstituteYeast detection in urine sediment by light microscopyOrdered By: Nyasia Hadley on 89-36-4627Thzqo LM Ql (Urine sed)SEENAbnormalNONE SEEN [facility] HospitalPOCT PT/INRon 41-83-7076BKFS INR1.3High.7-1.2 [facility] HospitalComment on above:Performed By: #### [id number] #### [facility] [address], [place] [address]UGZU PT15.1 second(s)High8.0-15.0[facility] Comment on above:Performed By: #### [id number] #### [facility] [address], [place] [address]NRGrm 16-86-0537Fzexf gap [Moles/Vol]7 mmol/LNormal6-16[facility] HospitalComment on above:Performed By: #### [id number] #### [facility] [address], [place] [address]BBG/Creat Ratio30 No VuvtsCwvg46-41BwenibDunlap Memorial Hospital Comment on above:Performed By: #### [id number] #### [facility] [address], [place] [address]Ltmfpsr [Mass/Vol]9.3 mg/dLNormal8.9-11.1FBerger HospitalComment on above:Performed By: #### [id number] #### [facility] [address], [place] [address]Mdkkaesb [Moles/Vol]103 mmol/VOfqggr403-235QeqlznDunlap Memorial HospitalComment on above:Performed By: #### [id number] #### [facility] [address], [place] [address]HK3 [Moles/Vol]29 mmol/GJjqiyq78-95CugypcDunlap Memorial Hospital Comment on above:Performed By: #### [id number] #### [facility] [address], [place] [address]Uelhtojxkg [Mass/Vol]0.8 mg/dLNormal0.5-1.3FBerger HospitalComment on above:Performed By: #### [id number] #### [facility] [address], [place] [address]Yswxgdu [Mass/Vol]214 mg/qZUnju01-510DfwzmhDunlap Memorial HospitalComment on above:Performed By: #### [id number] #### [facility] [address], [place] [address]Eivdvfjzd [Moles/Vol]3.6 mmol/LNormal3.5-5.3FBerger HospitalComment on above:Performed By: #### [id number] #### [facility] [address], [place] [address]Icxspr [Moles/Vol]135 mmol/FFobhqk254-524CkzysvDunlap Memorial HospitalComment on above:Performed By: #### [id number] #### [facility] [address], [place] [address]Bxlq nitrogen [Mass/Vol]24 mg/dLHigh5-21[facility] HospitalComment on above:Performed By: #### [id number] #### [facility] [address] [place] [address]NMO w/ Auto Diffon 98-65-5249Ierbcvym Absolute0.1 E9/LNormal 0.0-0.2FBerger HospitalComment on above:Performed By: #### [id number] #### [facility] [address] [place] [address]Mszfkxigt/100 WBC (Bld)1.4 %Normal0.0-2.0[facility] HospitalComment on above:Performed By: #### [id number] #### [facility] [address], [place] [address]Tzq Absolute0.3 E9/LNormal0.0-0.5FBerger Hospital Comment on above:Performed By: #### [id number] #### [facility] [address], [place] [address]Zsvyxqedwdi/100 WBC (Bld)3.5 %Normal0.0-8.0[facility] HospitalComment on above:Performed By: #### [id number] #### [facility] [address] [place] [address]Cputoaduful distribution width (RBC) [Ratio]17.1 %High10.9-14.2 [facility] HospitalComment on above:Performed By: #### [id number] #### [facility] [address] [place] [address]Jxbnyrtlec (Bld) [Volume fraction]36.9 %Low37.7-49.0[facility] HospitalComment on above:Performed By: #### [id number] #### [facility] [address] [place] [address]Fjhmdtcfmt (Bld) [Mass/Vol]12.7 g/dLLow13.5-17.5FBerger HospitalComment on above:Performed By: #### [id number] #### [facility] [address] [place] [address]Mskub Absolute1.5 E9/LNormal1.0-4.0[facility] Comment on above:Performed By: #### [id number] #### [facility] [address] [place] [address]Aysjdgxwyrx/100 WBC (Bld)18.9 %Ygcygl34.0-50.0[facility] HospitalComment on above:Performed By: #### [id number] #### [facility] [address] [place] [address]NML (RBC) [Entitic mass]31.6 oySumxbt11.0-34.0[facility] HospitalComment on above:Performed By: #### [id number] #### [facility] [address] [place] [address]FCNB (RBC) [Mass/Vol]34.4 g/hNLzppan08.4-36.0[facility] HospitalComment on above:Performed By: #### [id number] #### [facility] [address] [place] [address]QQR (RBC) [Entitic vol]91.9 cVRcupet40.0-100.0[facility] HospitalComment on above:Performed By: #### [id number] #### [facility] [address], [place] [address]Wjmb Absolute1.0 E9/LNormal0.2-1.0[facility] Comment on above:Performed By: #### [id number] #### [facility] [address], [place] [address]Lhslsqvtc/100 WBC (Bld)12.1 %Normal4.0-14.0[facility] HospitalComment on above:Performed By: #### [id number] #### [facility] [address], [place] [address]Zbpqvl Absolute5.1 E9/LNormal2.0-7.5[facility] Comment on above:Performed By: #### [id number] #### [facility] [address] [place] [address] [id number] Auto64.1 %Clgzjk60.0-75.0[facility] Comment on above:Performed By: #### [id number] #### [facility] [address] [place] [address] [id number] E9/KRbhvbm577.0-500.0[facility] Comment on above:Performed By: #### [id number] #### [facility] [address] [place] [address] [address]Skulqazk mean volume (Bld) [Entitic vol]8.5 fLNormal6.4-10.8 [facility] HospitalComment on above:Performed By: #### [id number] #### [facility] [address], [place] [address]MHF5.0 E12/LLow4.3-5.9[facility] Memorial HospitalComment on above:Performed By: #### [id number] #### [facility] [address] [place] [address]VEE4.9 E9/LNormal4.0-11.0[facility] HospitalComment on above:Performed By: #### [id number] #### [facility] [address], [place] [address]Kdjujjndr Glucose POCon 14-77-6768Uabgexj [Mass/Vol]318 mg/dL Cznt03-60YvbhcpDunlap Memorial HospitalComment on above:Result Comment: Notified RN/MDPerformed By: #### [id number] #### [facility] [address], [place] [address]Pokndfy [Mass/Vol]203 mg/sQBhdv48-57GwnqyiDunlap Memorial Hospital Comment on above:Result Comment: Notified RN/MDPerformed By: #### [id number] #### [facility] [address], [place] [address]Xcmkyfqlx Clinical Summaryon 89-85-5958Xbxfubaml Clinical SummaryInpatient Clinical Summary [address] [address] Clinical Summary Person Information: Name: TYLER SMITH Age: 64 Years : 1960 Sex: Male PCP: DARA EISENBERG CNP Marital Status: Single Phone: [phone] Race: White Ethnicity: Non- or Language: [place] Visit Id: Visit Reason: Medical problem - major; VERICOSE VEIN TOURNIQUET Speciality: Acuity: Enc Type: Inpatient Med Service: Medical Arrival: 01/24/2025 11:29:33 Discharge: Dispo Type: Admitted as IP to this Hosp Address: [address] [place] [address] Provider Notes: Diagnosis: 1:Severe sepsis; 2:Cellulitis of leg; 3:KRISTINE (acute kidney injury); 4:Atrial fibrillation with RVR; 5: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; 6:Hyponatremia; 7:Noncompliance with medications; 8:Insulin dependent type 2 diabetes mellitus; senior living (current) use of insulin Problems Active Smoker [...] up: With: Address: When: DARA EISENBERG [address] [facility], [place] [phone] Business (1) [address] [facility], [place] [address] [phone] Business (1) 01/31/2025 11:00 AM Comments: Call Dr for diagnosis based follow up With: Address: When: [facility] [phone] With: Address: When: OZZIE DUGAN [address] [place] [address] Business (1) Within 4 weeks Comments: Call for followup appointment With: Address: When: Follow up as scheduled with [facility] With: Address: When: [facility] [address] [place] [phone] Business (1) Within 3 to 5 days Comments: Call for followup appointment Patient Education Information: Atrial Fibrillation; Type 2 Diabetes Mellitus, Diagnosis, Adult; Sepsis, Diagnosis, Adult; Atrial Fibrillation; Cellulitis, Adult; Cellulitis, Adult, Ivdr-ax-Xrtf; Bleeding Varicose VeinsNormalDunlap Memorial HospitalInpatient Patient Summaryon 23-23-5900Ekcvkxlbo Patient SummaryInpatient Patient Summary [address] [address] Patient Discharge Instructions PERSON INFORMATION Name: TYLER SMITH Date of : 1960 Current Date: 01/26/2025 16:16:53 PHYSICIANS Admitting Physician: Ghassan Ding III, DO Primary Care Physician: DARA EISENBERG CNP Phone Number: [phone] Comment: Discharge Diagnosis: 1:Severe sepsis; 2:Cellulitis of leg; 3:KRISTINE (acute kidney injury); 4:Atrial fibrillation with RVR; 5: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; 6:Hyponatremia; 7:Noncompliance with medications; 8:Insulin dependent type 2 diabetes mellitus; senior living (current) use ofinsulin Condition at Discharge: Stable [...] up: With: Address: When: [facility] [phone] With: Address: When: OZZIE DUGAN [address] [place] [address] Business (1) Within 4 weeks Comments: Call for followup appointment With: Address: When: Follow up as scheduled with [facility] With: Address: When: [facility] [address] [place] [phone] Business (1) Within 3 to 5 days Comments: Call for followup appointment With: Address: When: DARA EISENBERG [address], [place] [phone] Business (1) In 3 days 01/27/2025 Comments: [...] OCCURRED DURING YOUR HOSPITAL STAY New Medications [facility], [address] [place], [place] [id number], [phone] cephalexin (cephalexin 500 mg Cap) 1 Capsules [...] Dose: Next Dose: C (more content not included)...[facility] Interdisciplinary Note - Case Manageron 90-89-4877Nyqbatkrsxfxwkeag Note - Case ManagerInterdisciplinary Note - Medical Insurance Coding Specialist Chart reviewed and patient previously rounded on by KALI Carson. Per [facility] portal multiple referrals were put into [facility] for [facility] and [facility] was the only one able to accept [...] closely for discharge needs. IMM copy at bedside.[facility] HospitalComment on above:Result Comment: Electronically Signed By: Sarah Snyder\Date and Time Signed: 01/26/25 11:38 EDTPTon 55-43-0974ZQY Coag (PPP) [Relative time]0.97 {INR}Invalid Interpretation CodeDunlap Memorial HospitalComment on above:Result Comment: INR results are specifically intended to assess patients stabilized on long-term Anticoagulation therapy suggested INR???s ???Less Intensive Anticoagulation??? 2.0 ??? 3.0 Conventional Range 3.0 ??? 4.5Performed By: #### [id number] #### [facility] [address], [place] [address]QM43.9 second(s)Normal9.4-12.5FBerger Hospital Comment on above:Result Comment: 15 days [...] the same coagulation reagent and instrumentation as [facility]. Currently there are no coagulation studies available worldwide for children to 14 days, andno normal ranges.Performed By: #### [id number] #### [facility] [address], [place] [address]zGFEkk 61-37-5537eQAI21 mL/min/1.73 r8Mbihel>=59Dun[facility] Memorial HospitalComment on above:Performed By: #### [id number] #### [facility] [address], [place] [address]EXG w/ Auto Diffon 94-63-4453Ozvjoxkk Absolute0.1 E9/LNormal 0.0-0.2FBerger HospitalComment on above:Performed By: #### [id number] #### [facility] [address], [place] [address]Dmbpkhylf/100 WBC (Bld)0.9 %Normal0.0-2.0[facility] Memorial HospitalComment on above:Performed By: #### [id number] #### [facility] [address], [place] [address]Umr Absolute0.1 E9/LNormal0.0-0.5FBerger Hospital Comment on above:Performed By: #### [id number] #### [facility] [address], [place] [address]Qhturuyudbj/100 WBC (Bld)0.9 %Normal0.0-8.0[facility] Memorial HospitalComment on above:Performed By: #### [id number] #### [facility] [address] [place] [address]Ynvseobjgjr distribution width (RBC) [Ratio]17.1 %High10.9-14.2 [facility] HospitalComment on above:Performed By: #### [id number] #### [facility] [address] [place] [address]Kjttgvcmpz (Bld) [Volume fraction]38.3 %Wfqnfd03.7-49.0[facility] HospitalComment on above:Performed By: #### [id number] #### [facility] [address], [place] [address]Vvfuggubew (Bld) [Mass/Vol]13.2 g/dLLow13.5-17.5FBerger HospitalComment on above:Performed By: #### [id number] #### [facility] [address], [place] [address]Dieff Absolute1.1 E9/LNormal1.0-4.0[facility] Comment on above:Performed By: #### [id number] #### [facility] [address], [place] [address]Pnefimagwia/100 WBC (Bld)9.3 %Low14.0-50.0[facility] Memorial HospitalComment on above:Performed By: #### [id number] #### [facility] [address] [place] [address]BGO (RBC) [Entitic mass]31.6 dvYnktfw55.0-34.0[facility] HospitalComment on above:Performed By: #### [id number] #### [facility] [address] [place] [address]XKBL (RBC) [Mass/Vol]34.5 g/zFFpkrsb90.4-36.0[facility] HospitalComment on above:Performed By: #### [id number] #### [facility] [address] [place] [address]NOW (RBC) [Entitic vol]91.5 lIUsbgnx03.0-100.0[facility] HospitalComment on above:Performed By: #### [id number] #### [facility] [address] [place] [address]Cums Absolute1.2 E9/LHigh0.2-1.0[facility] Comment on above:Performed By: #### [id number] #### [facility] [address] [place] [address]Zropciaij/100 WBC (Bld)10.0 %Normal4.0-14.0[facility] Memorial HospitalComment on above:Performed By: #### [id number] #### [facility] [address] [place] [address]Xmgysp Absolute9.1 E9/LHigh2.0-7.5FB[facility] Hospital Comment on above:Performed By: #### [id number] #### [facility] [address] [place] [address]Vwyekp Auto78.9 %High36.0-75.0[facility] Comment on above:Performed By: #### [id number] #### [facility] [address] [place] [address]Hqsksurc472.0 E9/YXqwbgt600.0-500.0[facility] Comment on above:Performed By: #### [id number] #### [facility] [address], [place] [address]Duppzxxv mean volume (Bld) [Entitic vol]8.9 fLNormal6.4-10.8 [facility] HospitalComment on above:Performed By: #### [id number] #### [facility] [address], [place] [address]FQC9.2 E12/LLow4.3-5.9[facility] Memorial HospitalComment on above:Performed By: #### [id number] #### [facility] [address] [place] [address]SHM56.5 E9/LHigh4.0-11.0[facility] HospitalComment on above:Performed By: #### [id number] #### [facility] [address] [place] [address]BXwl 32-46-4846Wxnnc CK64 Int._Unit/MOwmtzw62-598MfrmfjDunlap Memorial HospitalComment on above:Performed By: #### [id number] #### [facility] [address] [place] [address]OLJcp 80-79-3793Hocjife [Mass/Vol]2.9 g/dLLow3.3-5.0[facility] HospitalComment on above:Performed By: #### [id number] #### [facility] [address], [place] [address]Abqyouk/Globulin [Mass ratio]1.0 {ratio}Low1.1-2.2FBerger HospitalComment on above:Performed By: #### [id number] #### [facility] [address] [place] [address]Rht Phos85 Int._Unit/TZzhlwr68-06ZiedcaDunlap Memorial Hospital Comment on above:Performed By: #### [id number] #### [facility] [address], [place] [address]EKN88 Int._Unit/LNormal6-46[facility] HospitalComment on above:Performed By: #### [id number] #### [facility] [address], [place] [address]Qldmt gap [Moles/Vol]11 mmol/LNormal6-16[facility] Memorial HospitalComment on above:Performed By: #### [id number] #### [facility] [address], [place] [address]TAR12 Int._Unit/LNormal5-43[facility] HospitalComment on above:Performed By: #### [id number] #### [facility] [address], [place] [address]Fnwg Total0.5 mg/dLNormal0.0-1.1[facility] Hospital Comment on above:Performed By: #### [id number] #### [facility] [address], [place] [address]EMZ/Creat Ratio37 No FbnwdTckf67-65GkztatDunlap Memorial Hospital Comment on above:Performed By: #### [id number] #### [facility] [address], [place] [address]Txlqfvd [Mass/Vol]8.9 mg/dLNormal8.9-11.1FBerger HospitalComment on above:Performed By: #### [id number] #### [facility] [address], [place] [address]Ojttjfwa [Moles/Vol]100 mmol/DEwd545-145CytxkwDunlap Memorial HospitalComment on above:Performed By: #### [id number] #### [facility] [address], [place] [address]TK7 [Moles/Vol]25 mmol/HDyxdns75-20ImeindDunlap Memorial Hospital Comment on above:Performed By: #### [id number] #### [facility] [address], [place] [address]Bnhbwshbur [Mass/Vol]1.2 mg/dLNormal0.5-1.3FBerger HospitalComment on above:Performed By: #### [id number] #### [facility] [address], [place] [address]Luthyntu (S) [Mass/Vol]2.8 g/dLNormal1.4-4.0[facility] HospitalComment on above:Performed By: #### [id number] #### [facility] [address], [place] [address]Bnlzwvf [Mass/Vol]345 mg/lSGmfc09-773UxefdhDunlap Memorial HospitalComment on above:Performed By: #### [id number] #### [facility] [address], [place] [address]Easthnwpw [Moles/Vol]3.6 mmol/LNormal3.5-5.3FBerger HospitalComment on above:Performed By: #### [id number] #### [facility] [address], [place] [address]Jhbwrvn [Mass/Vol]5.7 g/dLLow6.0-7.8[facility] Comment on above:Performed By: #### [id number] #### [facility] [address], [place] [address]Gqnaqt [Moles/Vol]132 mmol/LCdk083-583CsphagDunlap Memorial HospitalComment on above:Performed By: #### [id number] #### [facility] [address], [place] [address]Dncy nitrogen [Mass/Vol]44 mg/dLHigh5-21[facility] Memorial HospitalComment on above:Performed By: #### [id number] #### [facility] [address], [place] [address]Eumxlmfbn Glucose POCon 21-68-4426Ijtgrrr [Mass/Vol]357 mg/dL Coca25-79NqufpjDunlap Memorial HospitalComment on above:Result Comment: Notified RN/MDPerformed By: #### [id number] #### [facility] [address], [place] [address]Ismxohj [Mass/Vol]351 mg/lPOdpm24-55Gbdhay[address] Comment on above:Result Comment: Notified RN/MDPerformed By: #### [id number] #### [facility] [address], [place] [address]Tjskarj [Mass/Vol]277 mg/wQCsvi40-99Tcqkpq[address] Comment on above:Result Comment: Notified RN/MDPerformed By: #### [id number] #### [facility] [address], [place] [address]Saebapp [Mass/Vol]289 mg/eMLhbz94-62Kfidxx[address] Comment on above:Result Comment: Notified RN/MDPerformed By: #### [id number] #### [facility] [address], [place] [address]Cfppusr [Mass/Vol]282 mg/qCQldu72-41Vwnqft[address] Comment on above:Result Comment: Notified RN/MDPerformed By: #### [id number] #### [facility] [address], [place] [address]Pfkzrao [Mass/Vol]345 mg/aIGlho87-29Psglkw[address] Comment on above:Performed By: #### [id number] #### [facility] [address], [place] [address]Lsyhsdx [Mass/Vol]466 mg/uAMbmtwwqk12-62Ikxhc[address] [place], [place] [address]Comment on above:Performed By: #### [id number] #### [facility] [address], [place] [address]ScxF8fut 28-25-3153LgU5p (Bld) [Mass fraction]12.6 %High<=5.9 [facility] HospitalComment on above:Performed By: #### [id number] #### [facility] [address], [place] [address]Cizszrsfybhllgvri Note - Case Manageron 01-25-2025 Interdisciplinary Note - Case ManagerInterdisciplinary Note - Medical Insurance Coding Specialist SW spoke with patient in room. No family in room. Patient is alert and oriented and participates indischarge planning. Patient is from home lives with friend Sam. Dr. Ding is following, see notes, saw patient earlier today. Patient was admitted on 01/24/25 , dx with sepsis. Has a consult with [employer] Technology Instructor. Patient verified PCP, insurance and DME, FWW [...] hospital. CORRECTION: HE HAS HIS OWN MACHINE [facility] HospitalComment on above:Result Comment: Electronically Signed By: Zuleyma VALADEZ, Yamileth\.br\Date and Time Signed: 01/25/2514:53 EDTInterdisciplinary Note - Medical Insurance Coding Specialist Interdisciplinary Note - Medical Insurance Coding Specialist JOSÉ spoke with patient in room. No family in room. Patient is alert and oriented and participates indischarge planning. Patient is from home lives with friend Sam. Dr. Ding is following, see notes, saw patient earlier today. Patient was admitted on 01/24/25 , dx with sepsis. Has a consult with [employer] Technology Instructor. Patient verified PCP, insurance and DME, FWW [...] white board updated, and SW contact information provided.[facility] HospitalComment on above:Result Comment: Electronically Signed By: Zuleyma ARTW, Yamileth\.br\Date and Time Signed: 01/25/2510:44 EDTPTon 95-00-5555QBL Coag (PPP) [Relative time]1.00 {INR}Invalid Interpretation CodeDunlap Memorial HospitalComment on above:Result Comment: INR results are specifically intended to assess patients stabilized on long-term Anticoagulation therapy suggested INR???s ???Less Intensive Anticoagulation??? 2.0 ??? 3.0 Conventional Range 3.0 ??? 4.5Performed By: #### [id number] #### [facility] [address], [place] [address]NG33.2 second(s)Normal9.4-12.5[facility] Comment on above:Result Comment: 15 days [...] the same coagulation reagent and instrumentation [place] [facility]. Currently there are no coagulation studies available worldwide for children to 14 days, andno normal ranges.Performed By: #### [id number] #### [facility] [address], [place] [address]rPPTvp 77-03-1592qIPM95 mL/min/1.73 y8Fbptkz>=59[facility] Memorial HospitalComment on above:Performed By: #### [id number] #### [facility] [address], [place] [address]EMBcx 72-20-5605Lxkne gap [Moles/Vol]12 mmol/LNormal6-16[facility] Memorial HospitalComment on above:Performed By: #### [id number] #### [facility] [address], [place] [address]NUH/Creat Ratio41 No EcaotTyib54-09KuzxqlDunlap Memorial Hospital Comment on above:Performed By: #### [id number] #### [facility] [address], [place] [address]Utmrqfb [Mass/Vol]8.7 mg/dLLow8.9-11.1FBerger HospitalComment on above:Performed By: #### [id number] #### [facility] [address], [place] [address]Hfobhcmo [Moles/Vol]95 mmol/ADxe655-708JfgoahDunlap Memorial HospitalComment on above:Performed By: #### [id number] #### [facility] [address], [place] [address]AU0 [Moles/Vol]25 mmol/JZffmph14-77StcdctDunlap Memorial Hospital Comment on above:Performed By: #### [id number] #### [facility] [address], [place] [address]Gkdtfbcyqn [Mass/Vol]1.4 mg/dLHigh0.5-1.3FBerger HospitalComment on above:Performed By: #### [id number] #### [facility] [address], [place] [address]Cmvxfbx [Mass/Vol]431 mg/yVLcez56-833PzwmndDunlap Memorial HospitalComment on above:Performed By: #### [id number] #### [facility] [address], [place] [address]Ylycjvzsm [Moles/Vol]3.8 mmol/LNormal3.5-5.3FBerger HospitalComment on above:Performed By: #### [id number] #### [facility] [address], [place] [address]Akeihs [Moles/Vol]128 mmol/XBxr638-020SphlpfDunlap Memorial HospitalComment on above:Performed By: #### [id number] #### [facility] [address], [place] [address]Riqc nitrogen [Mass/Vol]57 mg/dLHigh5-21[facility] Memorial HospitalComment on above:Performed By: #### [id number] #### [facility] [address], [place] [address]VWL w/ Auto Diffon 15-15-2226Nlqrrjhj Absolute0.1 E9/LNormal 0.0-0.2FBerger HospitalComment on above:Performed By: #### [id number] #### [facility] [address], [place] [address]Jowegkyil/100 WBC (Bld)0.5 %Normal0.0-2.0[facility] Memorial HospitalComment on above:Performed By: #### [id number] #### [facility] [address] [place] [address]Ybm Absolute0.1 E9/LNormal0.0-0.5[facility] Comment on above:Performed By: #### [id number] #### [facility] [address] [place] [address]Vhxogtgenhi/100 WBC (Bld)0.5 %Normal0.0-8.0[facility] Memorial HospitalComment on above:Performed By: #### [id number] #### [facility] [address] [place] [address]Zxyhxaxrwsk distribution width (RBC) [Ratio]17.1 %High10.9-14.2 [facility] HospitalComment on above:Performed By: #### [id number] #### [facility] [address], [place] [address]Fnxfmizmds (Bld) [Volume fraction]43.6 %Rvefxt23.7-49.0[facility] Memorial HospitalComment on above:Performed By: #### [id number] #### [facility] [address], [place] [address]Wmhqovcdwf (Bld) [Mass/Vol]14.6 g/hEOpyolk27.5-17.5FBerger HospitalComment on above:Performed By: #### [id number] #### [facility] [address] [place] [address]Buzwp Absolute1.1 E9/LNormal1.0-4.0[facility] Comment on above:Performed By: #### [id number] #### [facility] [address] [place] [address]Mpivqzdujha/100 WBC (Bld)6.1 %Low14.0-50.0[facility] Memorial HospitalComment on above:Performed By: #### [id number] #### [facility] [address] [place] [address]WED (RBC) [Entitic mass]30.8 uhQiiyuj45.0-34.0[facility] HospitalComment on above:Performed By: #### [id number] #### [facility] [address] [place] [address] 488[address]DNYI (RBC) [Mass/Vol]33.6 g/gZCfrxit20.4-36.0[facility] HospitalComment on above:Performed By: #### [id number] #### [facility] [address] [place] [address]15[address]ETN (RBC) [Entitic vol]91.8 qNEfooco99.0-100.0[facility] HospitalComment on above:Performed By: #### [id number] #### [facility] [address] [place] [address]Dxxn Absolute1.3 E9/LHigh0.2-1.0[facility] Comment on above:Performed By: #### [id number] #### [facility] [address] [place] [address]Cyhjdbrit/100 WBC (Bld)7.6 %Normal4.0-14.0[facility] Memorial HospitalComment on above:Performed By: #### [id number] #### [facility] [address] [place] [address]Wvrgia Jerwqxoc79.8 E9/LHigh2.0-7.5FBerger Hospital Comment on above:Performed By: #### [id number] #### [facility] [address] [place] [address]Buoelo Auto85.3 %High36.0-75.0[facility] Comment on above:Performed By: #### [id number] #### [facility] [address], [place] [address]Nvumbqcw268.0 E9/XBhfkdo862.0-500.0[facility] Comment on above:Performed By: #### [id number] #### [facility] [address] [place] [address]Jywcoprr mean volume (Bld) [Entitic vol]8.7 fLNormal6.4-10.8 [facility] HospitalComment on above:Performed By: #### [id number] #### [facility] [address] [place] [address]EDW3.8 E12/LNormal4.3-5.9[facility] Memorial HospitalComment on above:Performed By: #### [id number] #### [facility] [address] [place] [address]YTF17.4 E9/LHigh4.0-11.0[facility] HospitalComment on above:Performed By: #### [id number] #### [facility] [address] [place] [address]Ensyikeuc Glucose POCon 30-31-1891Iitzefr [Mass/Vol]490 mg/dL Yosnewgt47-95NgnnncDunlap Memorial HospitalComment on above:Result Comment: Notified RN/Katherineformed By: #### [id number] #### [facility] [address] [place] [address] 329[address]TE Clinical Summaryon [id number] Clinical SummaryED Clinical Summary [address] [id number] ED Clinical Summary Person Information Name: TYLER SMITH/Severino Age: 64 Years : 1960 Sex: Male Language: [place] PCP: DARA EISENBERG CNP Marital Status: Single Phone: [phone] Visit Id: Visit Reason: Medical problem - major; VERICOSE VEIN TOURNIQUET Speciality: Acuity: 2 Enc Type: Inpatient Med Service: Medical Arrival: 01/24/2025 11:29:33 Discharge: LOS: 000 07:25 Checkin: 01/24/2025 11:29:33 Checkout: 01/24/2025 18:54:25 Dispo Type: Admitted as IP to this [facility] EVENTS: Event Name Event Status Request [...] 18:23:37 Patient Care Request 01/24/2025 18:23:37 ADDRESS: [address] [place] [address] PHYS DOC NOTES: MEDICAL INFORMATION: Prescriptions Given: New Medications [id number], [address], [place] [id number], [phone] doxycycline (doxycycline hyclate 100 mg Cap) 1 Capsules By Mouth 2 times a day for 7 Days. Refills:0. PATIENT EDUCATION INFORMATION: Instructions: Cellulitis, Adult, Urik-uj-Nwao; Bleeding Varicose Veins Follow up: With: Address: When: DARA EISENBERG [address], [place] [address] [phone] Business (1) In 3 days 01/27/2025 Comments: Call Dr for diagnosis based follow up DIAGNOSIS: 1:Severe sepsis; 2:Cellulitis of leg; 3:KRISTINE (acute kidney injury); 4:Atrial fibrillation with RVR; 5: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; 6:Hyponatremia; 7:Noncompliance with medicationsNormalWexner Medical Center Medical CenterED Note-Physicianon [id number] Note-PhysicianED Note-Physician Basic Information Time Seen: Erich [...] of the patient. Sepsis Data [x] Patient's [place] body weight was considered in sepsis fluid [...] (Z91.148: Patient's other nonco (more content not included)...[facility] HospitalComment on above:Result Comment: Electronically Signed By: Puneet Jung PA-C.br\Date and Time Signed: 01/24/2513:02 EDT\.br\Electronically Co-Signed By: Puneet Jung PA-C.br\Date and Time Co-Signed: 01/24/25 15:25 EDT\.br\Electronically Co-Signed By: Puneet Jung PA-C.br\Date and Time Co-Signed: 01/24/25 16:27 EDT\.br\Electronically Co-Signed By: Manuel Fletcher M.D.\.br\Date and Time Co-Signed: 01/24/25 18:08 EDTED Patient Summaryon [id number] Patient SummaryED Patient Summary [place] [id number] Patient Discharge Instructions Person Information Name: TYLER SMITH Age: 64 Years Arrival Date: 01/24/2025 11:29:33 Discharge Diagnosis: 1:Severe sepsis; 2:Cellulitis of leg; 3:KRISTINE (acute kidney injury); 4:Atrial fibrillation with RVR; 5: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; 6:Hyponatremia; 7:Noncompliance with medications Primary Care Physician: DARA EISENBERG CNP Provider Information Primary Provider: Manuel Fletcher M.D. Advanced Industrial Equipment Mechanic:Puneet Jung PA-C The exam and treatment you received in the Emergency Department were for an urgent problem and are not intended as complete care. It is important that you follow up with a doctor, nurse practitioner,or physician???s observation assistant for ongoing care. If your symptoms [...] DARA EISENBERG [address], [address] [place] [id number] [phone] Business (1) In 3 days 01/27/2025 Comments: Call Dr for diagnosis based follow up In the event that this physician does not participate in your insurance network, please consult with your insurance company to find a nearby participating provider. Patient Education Materials: Cellulitis, Adult, Xefv-tn-Vnrv; Bleeding Varicose Veins A MESSAGE TO ALL PATIENTS REGARDING OPIOIDS PRESCRIPTION OPIOIDS: WHAT YOU NEED TO KNOW Prescription opioids can be used to help relieve arjeguoo-bq-mdtalt pain and are often prescribed following a [...] down the toilet, f (more content not included)...NormalDunlap Memorial HospitalLactic Acidon 92-80-0285Jlassm Acid Lvl1.0 mmol/LNormal0.5-2.2FBerger HospitalComment on above:Performed By: #### [id number] #### [facility] [address], [place] [address]ZN & PTTon 90-17-5458WAH Coag (PPP) [Relative time]1.03 {INR} Invalid Interpretation [facility] HealthComment on above:Result Comment: INR results are specifically intended to assess patients stabilized on long-term Anticoagulation therapy suggested INR???s ???Less Intensive Anticoagulation??? 2.0 ??? 3.0 Conventional Range 3.0 ??? 4.5Performed By: #### [id number] #### [facility] [address], [place] [address]SX44.5 second(s)Normal9.4-12.5FBerger Hospital Comment on above:Result Comment: 15 days [...] the same coagulation reagent and [place] [facility] [place] Currently there are no coagulation studies available worldwide for children to 14 days, andno normal ranges.Performed By: #### [id number] #### [facility] [address], [place] [address]UJV50.7 second(s)Kzbqhz43.1-36.5FBerger Hospital Comment on above:Result Comment: Parameter 15 [...] the same coagulation reagent and instrumentation [place] [facility] [place] Currently there are no coagulation studies available worldwide for children to 14 days, andno normal ranges. Heparin therapeutic range (represented by Anti-Factor Xa activity of 0.2 - 0.4 U/mL) corresponds to PTT of 56.6 - 109.0 sec.Performed By: #### [id number] #### [facility] [address], [place] [address]Twa-Lzahztd Noteon 94-97-4321Uoz-Arrival NotePre-Arrival Note Pre-Arrival Summary Name: , Current Date: 01/24/2025 11:30:22 EDT Gender: Date of : Age: Pre-Arrival Type: EMS ETA: 01/24/2025 11:50:00 EDT Primary Care Physician: Presenting Problem: varicose vein tourniquet Pre-Arrival User: [address] Referring Source: Location: [place] Completion Date/Time: 01/24/2025 11:20:00 [facility] Emergency Department Pre-Hospital Report Form Vital Signs: Pre-Hospital Report: Treatment in Route: Response to Treatment: Misc. Issues:NormalFisher Sinai Hospital Of BaltimoreProcalcitoninon 01-24-2025 Procalcitonin.09 ng/mLNormal.00-.50Dunlap Memorial HospitalComment on above: Result Comment: <0.5 ng/mL [...] within 6 to 24 hours.Performed By: #### [id number] #### [facility] [address] [place], [place] [address]Troponin 0 Hr.on 57-81-0839Ycbmqbpb HS4.60 pg/mLLow15.90-38.40 [facility] HospitalComment on above:Result Comment: The 95% CI (Confidence Interval) PPV (Positive Predictive Value) for myocardial infarction in females is 38 pg/mL, in males 51 pg/mL. The results should be used in conjunction with clinical conditions of myocardial infarction. (Access High Sensitivity Troponin I Instructions For Use, Charli [place], February 2018)Performed By: #### [id number] #### [facility] [address], [place] [address]SC with Cult Rflxon 15-12-9844Icwhv (U)Light-YellowNormalYellow [facility] HospitalComment on above:Result Comment: Microscopic readings are only performed on those samples that meet specific criteria set forth by [facility].Performed By: #### [id number] #### [facility] [address], [place] [address]Tppiazf Ql (U)NegativeNormalNegativeDunlap Memorial Hospital Comment on above:Performed By: #### [id number] #### [facility] [address], [place] [address]NU Blood1+ mg/dLAbnormalNegativeDunlap Memorial Hospital Comment on above:Performed By: #### [id number] #### [facility] [address], [place] [address]HZ ClarityClearNormalClearDunlap Memorial HospitalComment on above:Performed By: #### [id number] #### [facility] [address], [place] [address]BR Glucose4+ mg/dLAbnormakNegTrinity Health System West Campus Comment on above:Performed By: #### [id number] #### [facility] [address], [place] [address]SQ Leuk EstNegativeNormalNegTrinity Health System West Campus Comment on above:Performed By: #### [id number] #### [facility] [address], [place] [address]FI MucousTraceNormalNegTrinity Health System West CampusComment on above:Performed By: #### [id number] #### [facility] [address], [place] [address]GZ NitriteNegativeNormalNegTrinity Health System West Campus Comment on above:Performed By: #### [id number] #### [facility] [address], [place] [address]LP pH5.0Invalid Interpretation Code5.0-9.0Dunlap Memorial HospitalComment on above:Performed By: #### [id number] #### [facility] [address], [place] [address]ZN ProteinNegativeNormalNegTrinity Health System West Campus Comment on above:Performed By: #### [id number] #### [facility] [address], [place] [address]XC JFJ9-29Zejhqkqh0-9Vnkcly [facility] Hospital Of BaltimoreComment on above:Performed By: #### [id number] #### [facility] [address], [place] [address]UG Spec Grav1.020Invalid Interpretation Code1.005-1.030Dunlap Memorial HospitalComment on above:Performed By: #### [id number] #### [facility] [address], [place] [address]LV UrobilinogenNegativeNormalNegativeDunlap Memorial HospitalComment on above:Performed By: #### [id number] #### [facility] [address] [place] [address]RM NNH1-6Vxzhay2-0Eyjxuy [facility] Hospital Of BaltimoreComment on above: Performed By: #### [id number] #### [facility] [address], [place] [address]Lxidjgspudlx (U) [Mass/Vol]NegativeNormalNegativeDunlap Memorial HospitalComment on above:Performed By: #### [id number] #### [facility] [address] [place] [address]QG Spec DescClean CatchNormProMedica Memorial HospitalComment on above:Performed By: #### [id number] #### [facility] [address] [place] [address]GE Chest 2 Viewson 39-62-9851YR Chest 2 ViewsExam Date/Time: 01/24/2025 14:37 EDT [...] Krishna Ray MD Transcribed by: UMU Technologist: [facility] HospitaleGFRon 79-77-4146wTWR64 mL/min/1.73 m2Low>=59Dunlap Memorial HospitalComment on above:Performed By: #### [id number] #### [facility] [address] [place] [address]CmA7a HPLC (Bld) [Mass fraction]on 93-83-4713VkI9b (Bld) [Mass fraction]10.1 %[facility] West HospitalCB WITH AUTO DIFFERENTIALon 43-29-3846Cimdghnxe (Bld) [#/Vol]0.05 10*3/uLNormal0.00-0.20UnUniversity Hospitals Lake West Medical CenterComment on above:Performed By: #### [id number] ####[facility] (BEAKER)[address] [place], [place] [address]Iozhyfxry/100 WBC (Bld)0.6 %Normal 0.0-1.0UnUniversity Hospitals Lake West Medical CenterComment on above:Performed By: #### [id number] ####[facility] (BEAKER)[address] [place] [address] Eosinophils (Bld) [#/Vol]0.43 10*3/uLNormal0.00-0.50UnUniversity Hospitals Lake West Medical CenterComment on above:Performed By: #### [id number] ####[facility] (BEAKER)[address] [place], [place] [address]Raspenblhmw/100 WBC (Bld)5.0 %Normal 0.0-6.0UnUniversity Hospitals Lake West Medical CenterComment on above:Performed By: #### [id number] ####[facility] (BEAKER)[address] [place] [address] Erythrocyte distribution width (RBC) [Ratio]15.1 %High11.5-15.0UnUniversity Hospitals Lake West Medical CenterComment on above:Performed By: #### [id number] ####[facility] (BEAKER)[address] [facility], [place] [address]CQWHCWBXTUU MEAN CORPUSCULAR HEMOGLOBIN CONCENTRATION (G/DL) BY YGMXQIKBX28.1 g/dLLow32.0-35.0 [facility] PrebleComment on above:Performed By: #### [id number] ####[facility] (BEAKER)[address] [facility], [place] [address]Rnnegthcsu (Bld) [Volume fraction]48.8 %Mcxdwg34.0-55.0UnUniversity Hospitals Lake West Medical Center Comment on above:Performed By: #### [id number] ####[facility] (BEAKER)[address] [place] [address]Glkwrjyoqc (Bld) [Mass/Vol]15.2 g/cHVrfhwi26.0-17.0 [facility] PrebleComment on above:Performed By: #### [id number] ####[facility] (BEAKER)[address] [place] [address]Jsdlexmi granulocytes (Bld) [#/Vol]0.05 10*3/uLNormal0.00-0.20UnUniversity Hospitals Lake West Medical CenterComment on above:Performed By: #### [id number] ####[facility] (BEAKER)[address] [place] [address]Zesvxatp granulocytes/100 WBC (Bld)0.6 %Normal0.0-1.0UnUniversity Hospitals Lake West Medical CenterComment on above:Performed By: #### [id number] ####[facility] (BEAKER)[address] [place] [address] Lymphocytes (Bld) [#/Vol]1.59 10*3/uLNormal1.20-4.00UnUniversity Hospitals Lake West Medical CenterComment on above:Performed By: #### [id number] ####[facility] (BEAKER)[address] [place] [address]Xvoaonljted/100 WBC (Bld)18.5 %Low 20.0-45.0UnUniversity Hospitals Lake West Medical CenterComment on above:Performed By: #### [id number] ####[facility] (BEAKER)[address] [place] [address]RTB (RBC) [Entitic mass]28.8 seHvdggr39.0-33.0UnUniversity Hospitals Lake West Medical Center Comment on above:Performed By: #### [id number] ####[facility] (BEAKER)[address] [place] [address]PFP (RBC) [Entitic vol]92.6 aTIpaekx46.0-98.0 [facility] PrebleComment on above:Performed By: #### [id number] ####[facility] ([facility])[address] [place] [address]Eaavrewgs (Bld) [#/Vol]0.90 10*3/uLNormal0.10-1.00UnUniversity Hospitals Lake West Medical CenterComment on above:Performed By: #### [id number] ####[facility] ([facility])[address] [place] [address]Abboiblly/100 WBC (Bld)10.5 %Normal5.0-12.0UnUniversity Hospitals Lake West Medical CenterComment on above:Performed By: #### [id number] ####[facility] ([facility])[address] [place] [address]Nvtmmihzrlh (Bld) [#/Vol] 5.56 10*3/uLNormal1.60-7.60UnUniversity Hospitals Lake West Medical CenterComment on above: Performed By: #### [id number] ####[facility] ([facility])[address] [place] [address]Cgkmemnzigl/100 WBC (Bld)64.8 %Yfhujz64.0-72.0UnUniversity Hospitals Lake West Medical CenterComment on above:Performed By: #### [id number] ####[facility] ([facility])[address] [place] [address]NDYT (PER 100 WBCS) BY AUTOMATED COUNT0.0 %Uyuzqc2WnmmmhpkzoUniversity Hospitals Lake West Medical CenterComment on above: Performed By: #### [id number] ####[facility] ([facility])[address] [place] [address]LHGCMWAZP (10*3/UL) IN BLOOD AUTOMATED DYPAA398 10*3/uLNormal 150-400UnUniversity Hospitals Lake West Medical CenterComment on above:Performed By: #### [id number] ####[facility] ([facility])[address] [place] [address]QKW (Bld) [#/Vol]5.27 10*6/uLNormal4.20-5.70UnUniversity Hospitals [facility] Medical Center Comment on above:Performed By: #### [id number] ####[facility] ([facility])[address] [place] [address]OVE (Bld) [#/Vol]8.58 10*3/uLNormal4.00-10.60 [facility] PrebleComment on above:Performed By: #### [id number] ####[facility] ([facility])[place] [address]PAvo 09-09-2024 DSNormalUniversKettering Health Greene MemorialMAGNESIUMon 33-58-1707Mihpxpouf [Mass/Vol]1.7 mg/dLLow1.9-2.7UnUniversity Hospitals Lake West Medical CenterComment on above:Performed By: #### [id number] ####[facility] ([facility])[address] PERALESJEFFERSON HOSPITALDinesh [place] [address]ZQKLOYEXGRcv 22-58-1928Lspdkowyh [Mass/Vol]3.2 mg/dLNormal 2.5-5.0UnUniversity Hospitals Lake West Medical CenterComment on above:Performed By: #### [id number] ####[facility] ([facility])Zev NAQVITON ANGELLAJEFFERSON HOSPITALDinesh [place] [address]EMWR GLUCOSE METER UNSOLICITED RESULTSon 42-99-0041Cjaqkhp [Mass/Vol]114 mg/dLHigh 70-105UnUniversity Hospitals Lake West Medical CenterComment on above:Order Comment: Waived Testing in the ED is performed under the ED CLIA certificate #[id number].Result Comment: kzswaeb7Ryojigvrh By: #### [id number] ####[facility] ([facility])[address] [place] [address]72cw 05-80-997[address]PmktouFubhshfyhp of [place] [facility] Jlhara13UxddteXfckuqivjwKettering Health Greene MemorialCBC WITH AUTO DIFFERENTIALon 66-02-8840Vtmhddfeh (Bld) [#/Vol]0.06 10*3/uLNormal0.00-0.20UnUniversity Hospitals Lake West Medical CenterComment on above:Performed By: #### [id number] ####[facility] (BEAKER)[address] [place], [place] [address]Cobhbtrjj/100 WBC (Bld)0.8 %Normal 0.0-1.0UnUniversity Hospitals Lake West Medical CenterComment on above:Performed By: #### [id number] ####[facility] (BEAKER)[address] [place] [address] Eosinophils (Bld) [#/Vol]0.43 10*3/uLNormal0.00-0.50UnUniversity Hospitals Lake West Medical CenterComment on above:Performed By: #### [id number] ####[facility] (AKER)[address] [place], [place] [address]Sguwtvgfhjc/100 WBC (Bld)5.5 %Normal 0.0-6.0UnUniversity Hospitals Lake West Medical CenterComment on above:Performed By: #### [id number] ####[facility] (AKER)[address] [place] [address] Erythrocyte distribution width (RBC) [Ratio]15.2 %High11.5-15.0UnUniversity Hospitals Lake West Medical CenterComment on above:Performed By: #### [id number] ####[facility] (BEAKER)[address] [place], [place] [address]IRGWAPBJOSP MEAN CORPUSCULAR HEMOGLOBIN CONCENTRATION (G/DL) BY SLSOVZENZ56.8 g/dLLow32.0-35.0 [facility] PrebleComment on above:Performed By: #### [id number] ####[facility] (BEAKER)[address] [place], [place] [address]Hdkfsusdsv (Bld) [Volume fraction]45.4 %Auiwxy73.0-55.0UnUniversity Hospitals [facility] Medical Center Comment on above:Performed By: #### [id number] ####[facility] (BEAKER)[address] [place], [place] [address]Czuducdoev (Bld) [Mass/Vol]14.0 g/xCFpwdjw75.0-17.0 [facility] PrebleComment on above:Performed By: #### [id number] ####[facility] (BEAKER)[address] [place] [address]Ihjvvkuq granulocytes (Bld) [#/Vol]0.03 10*3/uLNormal0.00-0.20UnUniversity Hospitals Lake West Medical CenterComment on above:Performed By: #### [id number] ####[facility] (BEAKER)[address] [place], [place] [address]Irwojcmg granulocytes/100 WBC (Bld)0.4 %Normal0.0-1.0UnUniversity Hospitals Lake West Medical CenterComment on above:Performed By: #### [id number] ####[facility] (BEAKER)[address] [place] [address] Lymphocytes (Bld) [#/Vol]1.82 10*3/uLNormal1.20-4.00UnUniversity Hospitals Lake West Medical CenterComment on above:Performed By: #### [id number] ####[facility] (BEAKER)[address] [place], [place] [address]Qybwsjgnpdw/100 WBC (Bld)23.2 %Normal 20.0-45.0UnUniversity Hospitals Lake West Medical CenterComment on above:Performed By: #### [id number] ####[facility] (BEAKER)[address] [place], [place] [address]WYI (RBC) [Entitic mass]29.1 btSchzbx50.0-33.0UnUniversity Hospitals [facility] Center Comment on above:Performed By: #### [id number] ####[facility] (BEAKER)[address] [place], [place] [address]SWB (RBC) [Entitic vol]94.4 aLYioyri69.0-98.0 [facility] PrebleComment on above:Performed By: #### [id number] ####[facility] (BEAKER)[address] [place], [place] [address]Idqhsiysr (Bld) [#/Vol]0.88 10*3/uLNormal0.10-1.00UnUniversity Hospitals Lake West Medical CenterComment on above:Performed By: #### [id number] ####[facility] (BEAKER)[address] [place] [address]Bmmwqmjyv/100 WBC (Bld)11.2 %Normal5.0-12.0UnUniversity Hospitals Lake West Medical CenterComment on above:Performed By: #### [id number] ####[facility] (BEAKER)[address] [address]Tftawbeknpc (Bld) [#/Vol] 4.62 10*3/uLNormal1.60-7.60UnUniversity Hospitals Lake West Medical CenterComment on above: Performed By: #### [id number] ####[facility] ([facility])[address] [address]Xftsevzfjlf/100 WBC (Bld)58.9 %Nrqqav97.0-72.0UnUniversity Hospitals Lake West Medical CenterComment on above:Performed By: #### [id number] ####[facility] ([facility])[address] [place] [address]SKCB (PER 100 WBCS) BY AUTOMATED COUNT0.0 %Ivkakh1SukkrskixcUniversity Hospitals Lake West Medical CenterComment on above: Performed By: #### [id number] ####[facility] (BEAKER)[address] [place] [address]LTUILSTTB (10*3/UL) IN BLOOD AUTOMATED UQION734 10*3/uLNormal 150-400UnUniversity Hospitals Lake West Medical CenterComment on above:Performed By: #### [id number] ####[facility] (BEAKER)[address] [place] [address]KDG (Bld) [#/Vol]4.81 10*6/uLNormal4.20-5.70UnUniversity Hospitals [facility] Center Comment on above:Performed By: #### [id number] ####[facility] (BEAKER)[address] [place] [address]UGY (Bld) [#/Vol]7.84 10*3/uLNormal4.00-10.60 [facility] PrebleComment on above:Performed By: #### [id number] ####[facility] ([facility])[address] [place] [address]XQZFCCBOKrp 53-39-9204Jvzcjfyll [Mass/Vol]1.6 mg/dLLow1.9-2.7UnUniversity Hospitals Lake West Medical CenterComment on above:Performed By: #### [id number] ####[facility] ([facility])[address] [place] [address]ZUADGCGDxv 52-39-2570OPKAPTKGWnozyb [facility] PreblePHOSPHORUSon 00-01-0347Owckjtbhp [Mass/Vol] 3.4 mg/dLNormal2.5-5.0UnUniversity Hospitals Lake West Medical CenterComment on above: Performed By: #### [id number] ####[facility] ([facility])[address] [place], [place] [address]IIUR GLUCOSE METER UNSOLICITED RESULTSon 57-56-0840Rriisit [Mass/Vol]244 mg/dXZeqr76-266EihvzcjwycUniversity Hospitals Lake West Medical CenterComment on above:Order Comment: Waived Testing in the ED is performed under the ED CLIA certificate #[id number].Result Comment: drockolPerformed By: #### [id number] ####[facility] ([facility])[address] [place], [place] [address]Vmibfxh [Mass/Vol]165 mg/rRUnlx19-827RlduvujbtrUniversity Hospitals Lake West Medical CenterComment on above:Order Comment: Waived Testing in the ED is performed under the ED CLIA certificate #[id number].Result Comment: dbtwyqd8Kfymjridr By: #### [id number] ####[facility] ([facility])[address] [place], [place] [address]Znmrlaz [Mass/Vol]110 mg/lPGcbw49-032AefwhllpkcUniversity Hospitals Lake West Medical CenterComment on above:Order Comment: Waived Testing in the ED is performed under the ED CLIA certificate #[id number].Result Comment: wmtixuy7Mvphthiwt By: #### [id number] ####[facility] (BEAKER)[address] [place] [address]Icbgqwg [Mass/Vol]157 mg/sVNhzb23-236PkdcbksbucUniversity Hospitals Lake West Medical CenterComment on above:Order Comment: Waived Testing in the ED is performed under the ED CLIA certificate #[id number].Result Comment: rstogqr8Zxfopxajc By: #### [id number] ####[facility] (BEAKER)[address] [place] [address]rl 09-07-2024 30NormalUniversity [facility]30NormalUniversKettering Health Greene MemorialBASIC METABOLIC PANELon 27-05-1362Ccdwp gap [Moles/Vol]9 mmol/LNormal7-20 [facility] PrebleComment on above:Performed By: #### [id number] ####[facility] (BEAKER)[address] [place], [place] [address]Ruakrnb [Mass/Vol]9.6 mg/dLNormal8.6-10.3UnUniversity Hospitals Lake West Medical CenterComment on above:Performed By: #### [id number] ####[facility] (BEAKER)[address] [place] [address]Yzbfgllg [Moles/Vol]100 mmol/NScxgin02-316FmjlsifhuhUniversity Hospitals Lake West Medical CenterComment on above:Performed By: #### [id number] ####[facility] (BEAKER)[address] [place], [place] [address]KH7 [Moles/Vol]32 mmol/QBsjd05-03 [facility] PrebleComment on above:Performed By: #### [id number] ####[facility] (BEAKER)[address] [place], [place] [address]Kjvtbxllgw [Mass/Vol]0.78 mg/dLNormal0.70-1.30UnUniversity Hospitals Lake West Medical CenterComment on above:Performed By: #### [id number] ####[facility] (BEAKER)[address] [place] [address]RZCCGYOPEU FILTRATION RATE ML/MIN/1.73 SQ M.TZHWWNIDH96.0 mL/min/1.73m*2Normal>60.0UnUniversity Hospitals Lake West Medical CenterComment on above: Result Comment: The [facility]???s estimated glomerular filtration rate (eGFR) will no [...] anyone group of individuals.Performed By: #### [id number] ####[facility] ([facility])[address] [place] [address]Kddrecn [Mass/Vol]153 mg/wHXpez39-379HsatwdghqaUniversity Hospitals Lake West Medical CenterComment on above:Performed By: #### [id number] ####[facility] ([facility])[address] [place], [place] [address]Fuwhmbfyb [Moles/Vol]4.1 mmol/L Normal3.5-5.1UnUniversity Hospitals Lake West Medical CenterComment on above:Performed By: #### [id number] ####[facility] ([facility])[address] [place] [address] Sodium [Moles/Vol]137 mmol/QVublme278-423EwufzjkezqUniversity Hospitals Lake West Medical Center Comment on above:Performed By: #### [id number] ####[facility] ([facility])[address] [place], [place] [address]Wnnt nitrogen [Mass/Vol]19 mg/dLNormal7-25 [facility] PrebleComment on above:Performed By: #### [id number] ####[facility] ([facility])[address] [place], [place] [address]NZXV NITROGEN/CREATININE (MASS RATIO) IN SER/PLAS24.4NormalUniversKettering Health Greene MemorialComment on above:Performed By: #### [id number] ####[facility] ([facility])[address] [place] [address]MCE WITH AUTO DIFFERENTIALon 29-89-7315Dmqgraavw (Bld) [#/Vol]0.06 10*3/uLNormal0.00-0.20UnUniversity Hospitals Lake West Medical CenterComment on above:Performed By: #### [id number] ####[facility] ([facility])[address] [place] [address]Vvfozjlbh/100 WBC (Bld)0.8 %Normal 0.0-1.0UnUniversity Hospitals Lake West Medical CenterComment on above:Performed By: #### [id number] ####[facility] ([facility])[address] [place] [address] Eosinophils (Bld) [#/Vol]0.49 10*3/uLNormal0.00-0.50UnUniversity Hospitals Lake West Medical CenterComment on above:Performed By: #### [id number] ####[facility] ([facility])[address] [place], [place] [address]Serdozyogzw/100 WBC (Bld)6.8 %High 0.0-6.0UnUniversity Hospitals Lake West Medical CenterComment on above:Performed By: #### [id number] ####[facility] ([facility])[address] [place] [address] Erythrocyte distribution width (RBC) [Ratio]15.3 %High11.5-15.0UnUniversity Hospitals Lake West Medical CenterComment on above:Performed By: #### [id number] ####[facility] ([facility])[address] [place], [place] [address]YWKSPXUPLFF MEAN CORPUSCULAR HEMOGLOBIN CONCENTRATION (G/DL) BY VPRSPEYIJ27.9 g/dLLow32.0-35.0 [facility] PrebleComment on above:Performed By: #### [id number] ####[facility] ([facility])[address] [place], [place] [address]Xieogwusnb (Bld) [Volume fraction]45.9 %Xivpjx38.0-55.0UnUniversity Hospitals Lake West Medical Center Comment on above:Performed By: #### [id number] ####[facility] ([facility])[address] [place], [place] [address]Ssepffmvnk (Bld) [Mass/Vol]14.2 g/mFMecrhy84.0-17.0 [facility] PrebleComment on above:Performed By: #### [id number] ####[facility] ([facility])[address] [place], [place] [address]Bdsirrew granulocytes (Bld) [#/Vol]0.04 10*3/uLNormal0.00-0.20UnUniversity Hospitals Lake West Medical CenterComment on above:Performed By: #### [id number] ####[facility] ([facility])[address] [place], [place] [address]Kwdkmvkf granulocytes/100 WBC (Bld)0.6 %Normal0.0-1.0UnUniversity Hospitals Lake West Medical CenterComment on above:Performed By: #### [id number] ####[facility] ([facility])[address] [place] [address] Lymphocytes (Bld) [#/Vol]1.82 10*3/uLNormal1.20-4.00UnUniversity Hospitals Lake West Medical CenterComment on above:Performed By: #### [id number] ####[facility] ([facility])[address] [place], [place] [address]Rhwjirqyuaa/100 WBC (Bld)25.3 %Normal 20.0-45.0UnUniversity Hospitals Lake West Medical CenterComment on above:Performed By: #### [id number] ####[facility] ([facility])[address] [place], [place] [address]ICF (RBC) [Entitic mass]29.2 wxRbhclf45.0-33.0UnUniversity Hospitals Lake West Medical Center Comment on above:Performed By: #### [id number] ####[facility] ([facility])[address] [place], [place] [address]YJM (RBC) [Entitic vol]94.4 cMOeqics39.0-98.0 [facility] PrebleComment on above:Performed By: #### [id number] ####[facility] ([facility])[address] [place] [address]Plpzwojel (Bld) [#/Vol]0.74 10*3/uLNormal0.10-1.00UnUniversity Hospitals Lake West Medical CenterComment on above:Performed By: #### [id number] ####[facility] ([facility])[address] [place] [address]Rguzskefe/100 WBC (Bld)10.3 %Normal5.0-12.0UnUniversity Hospitals Lake West Medical CenterComment on above:Performed By: #### [id number] ####[facility] ([facility])[address] [place] [address]Joglbpysyfl (Bld) [#/Vol] 4.04 10*3/uLNormal1.60-7.60UnUniversity Hospitals Lake West Medical CenterComment on above: Performed By: #### [id number] ####[facility] ([facility])[address] [place] [address]Ptttjxtdckr/100 WBC (Bld)56.2 %Yuduff14.0-72.0UnUniversity Hospitals Lake West Medical CenterComment on above:Performed By: #### [id number] ####[facility] ([facility])[address] [place] [address]XXGC (PER 100 WBCS) BY AUTOMATED COUNT0.0 %Defobi0CnfsjfcfzyUniversity Hospitals Lake West Medical CenterComment on above: Performed By: #### [id number] ####[facility] ([facility])[address] [place], [place] [address]OLCFYUTOG (10*3/UL) IN BLOOD AUTOMATED OHSIM166 10*3/uLNormal 150-400UnUniversity Hospitals Lake West Medical CenterComment on above:Performed By: #### [id number] ####[facility] ([facility])[address] [place] [address]MXF (Bld) [#/Vol]4.86 10*6/uLNormal4.20-5.70[facility] Comment on above:Performed By: #### [id number] ####[facility] ([facility])[address] [place] [address]ODO (Bld) [#/Vol]7.19 10*3/uLNormal4.00-10.60 [facility] PrebleComment on above:Performed By: #### [id number] ####[facility] ([facility])[address] [place] [address]RWBOHWNPNfa 07-53-0018Njoyiqsbw [Mass/Vol]1.7 mg/dLLow1.9-2.7UnUniversity Hospitals Lake West Medical CenterComment on above:Performed By: #### [id number] ####[facility] ([facility])[address] [place] [address]YRMUGRSHor 60-02-5427WDFBPEJVChizbx off to Ian engel RNNormalUniversKettering Health Greene MemorialNURSNOTEHOB up @ 40 degrees, NO c/o of pain, or SOB at this time Urinal at bedside Call light within reach IV INT'd, intact, no redness noted Pulse ox--97% O 2 cont. On pt. Per nasal cannula @ 4 L/min NC Telemetry cont. On ptNormalUDayton Children's HospitalNURSNOTHawthorn Children's Psychiatric Hospitalal [facility] PrebleNURSNOTETried to call Elias, pt's brother, no answer, still, at this time, 3rd attemptNormalUniversKettering Health Greene MemorialNURSNOTENormalUniversKettering Health Greene MemorialNURSNOTEPt's family brought him a hamburger last night, and the pt. Is eating it now. Pt. Encouraged not to eat, since the hamburger has been sitting out all night. Pt. Cont. To eat burger.NormalUnUniversity Hospitals Lake West Medical CenterNURSNOTEEyes closed resp. Easy @ 18/min Pulse ox--98% Telemetry cont. On ptGrant HospitalOrders Onlyon 13-35-0931Bbstcq [id number] Tyler Smith 1960 M Date Provider Department [place] 09/07/20240887-MWBMVCWO-JFKYDCJAYSON*[facility] [place] [facility] No family history on fileNormalUniversity of Adventhealth Rollins BrookPHOSPHORUSon 05-14-7772Rndlsuajn [Mass/Vol]3.5 mg/dLNormal2.5-5.0UnUniversity Hospitals Lake West Medical CenterComment on above:Performed By: #### [id number] ####[facility] ([facility] [place], [place] [address]LLUW GLUCOSE METER UNSOLICITED RESULTS on 80-07-2837Foyrzad [Mass/Vol]200 mg/xBQoyc50-511GfmdvsnsqvUniversity Hospitals Lake West Medical CenterComment on above:Order Comment: Waived Testing in the ED is performed under the ED CLIA certificate #[id number].Result Comment: drockolPerformed By: #### [id number] ####[facility] ([facility])[address] [place] [address] Glucose [Mass/Vol]211 mg/oYIxqx32-929ZsesycxnivUniversity Hospitals Lake West Medical CenterComment on above:Order Comment: Waived Testing in the ED is performed under the ED CLIA certificate #[id number].Result Comment: ezhyva1Nmlbkjiqk By: #### [id number] ####[facility] (BEAKER)[address] [place], [place] [address]Tuauigw [Mass/Vol]298 mg/wNSqnm40-386NtohhqsmquUniversity Hospitals Lake West Medical CenterComment on above:Order Comment: Waived Testing in the ED is performed under the ED CLIA certificate #[id number].Result Comment: [id number] By: #### [id number] ####[facility] ([facility])[address] [place], [place] [address]Fgtqeqa [Mass/Vol]155 mg/nEIqpv48-978UwxwffgdewUniversity Hospitals Lake West Medical CenterComment on above:Order Comment: Waived Testing in the ED is performed under the ED CLIA certificate #[id number].Result Comment: [id number] By: #### [id number] ####[facility] ([facility])[address] [place] [address]692ll 09-06-2024 30NormalUniversity [facility]30NormalUniversity Adena Health SystemBASIC METABOLIC PANELon 64-34-1418Fqkbf gap [Moles/Vol]11 mmol/LNormal7-20 [facility]bleComment on above:Performed By: #### [id number] ####[facility] ([facility])[address] [place] [address]Nzevelc [Mass/Vol]9.8 mg/dLNormal8.6-10.3UnUniversity Hospitals Lake West Medical CenterComment on above:Performed By: #### [id number] ####[facility] ([facility])[address] [place], [place] [address]Ylevqens [Moles/Vol]98 mmol/SRyxdcn49-972RqdrxqbqsxUniversity Hospitals Lake West Medical CenterComment on above:Performed By: #### [id number] ####[facility] ([facility])[address] [place], [place] [address]FT4 [Moles/Vol]31 mmol/BMirgpp29-83 [facility] PrebleComment on above:Performed By: #### [id number] ####[facility] ([facility])[address] [place], [place] [address]Cqllrrvxwz [Mass/Vol]0.90 mg/dLNormal0.70-1.30UnUniversity Hospitals Lake West Medical CenterComment on above:Performed By: #### [id number] ####[facility] ([facility])[address] [place], [place] [address]NBKTZSUAGN FILTRATION RATE ML/MIN/1.73 SQ M.WHFIALTWO10.8 mL/min/1.73m*2Normal>60.0UnUniversity Hospitals Lake West Medical CenterComment on above: Result Comment: The [facility]???s estimated glomerular filtration rate (eGFR) will no [...] anyone group of individuals.Performed By: #### [id number] ####[facility] ([facility])[address] [place], [place] [address]Puvjuds [Mass/Vol]244 mg/hZXpru08-494PuwckifmznUniversity Hospitals Lake West Medical CenterComment on above:Performed By: #### [id number] ####[facility] ([facility])[address] [place], [place] [address]Ooycykrsv [Moles/Vol]3.9 mmol/L Normal3.5-5.1UnUniversity Hospitals Lake West Medical CenterComment on above:Performed By: #### [id number] ####[facility] ([facility])[address] [place] [address] Sodium [Moles/Vol]136 mmol/KSiysgy473-704AgwhtghqyzUniversity Hospitals Lake West Medical Center Comment on above:Performed By: #### [id number] ####[facility] ([facility])[address] [place], [place] [address]Gftm nitrogen [Mass/Vol]18 mg/dLNormal7-25 [facility] PrebleComment on above:Performed By: #### [id number] ####[facility] ([facility])[address] [place], [place] [address]JQKN NITROGEN/CREATININE (MASS RATIO) IN SER/PLAS20.0NormalUniversKettering Health Greene MemorialComment on above:Performed By: #### [id number] ####[facility] ([facility])[address] [place], [place] [address]NDO WITH AUTO DIFFERENTIALon 21-86-6277Gbgybxhtx (Bld) [#/Vol]0.07 10*3/uLNormal0.00-0.20UnUniversity Hospitals Lake West Medical CenterComment on above:Performed By: #### [id number] ####[facility] ([facility])[address] [place], [place] [address]Sdupehdnh/100 WBC (Bld)1.0 %Normal 0.0-1.0UnUniversity Hospitals Lake West Medical CenterComment on above:Performed By: #### [id number] ####[facility] ([facility])[address] [place] [address] Eosinophils (Bld) [#/Vol]0.40 10*3/uLNormal0.00-0.50UnUniversity Hospitals Lake West Medical CenterComment on above:Performed By: #### [id number] ####[facility] ([facility])[address] [place], [place] [address]Nunefoxezwo/100 WBC (Bld)5.9 %Normal 0.0-6.0UnUniversity Hospitals Lake West Medical CenterComment on above:Performed By: #### [id number] ####[facility] ([facility])[address] [place] [address] Erythrocyte distribution width (RBC) [Ratio]15.2 %High11.5-15.0UnUniversity Hospitals Lake West Medical CenterComment on above:Performed By: #### [id number] ####[facility] ([facility])[address] [place], [place] [address]TKQFJICTZGA MEAN CORPUSCULAR HEMOGLOBIN CONCENTRATION (G/DL) BY ZHNHBMEYC05.7 g/dLLow32.0-35.0 [facility] PrebleComment on above:Performed By: #### [id number] ####[facility] ([facility])[address] [place], [place] [address]Hprrthqxxp (Bld) [Volume fraction]47.3 %Gvluga99.0-55.0UnUniversity Hospitals Lake West Medical Center Comment on above:Performed By: #### [id number] ####[facility] ([facility])[address] [place], [place] [address]Bzihapjzbu (Bld) [Mass/Vol]14.5 g/kXKlbpyx56.0-17.0 [facility] PrebleComment on above:Performed By: #### [id number] ####[facility] ([facility])[address] [place], [place] [address]Utmeyqzc granulocytes (Bld) [#/Vol]0.05 10*3/uLNormal0.00-0.20UnUniversity Hospitals Lake West Medical CenterComment on above:Performed By: #### [id number] ####[facility] ([facility]ER)[address] [place] [address]Ghadaixp granulocytes/100 WBC (Bld)0.7 %Normal0.0-1.0UnUniversity Hospitals Lake West Medical CenterComment on above:Performed By: #### [id number] ####[facility] ([facility])[address] [place] [address] Lymphocytes (Bld) [#/Vol]1.52 10*3/uLNormal1.20-4.00UnUniversity Hospitals Lake West Medical CenterComment on above:Performed By: #### [id number] ####[facility] ([facility])[address] [place] [address]Lfhdmiettpz/100 WBC (Bld)22.5 %Normal 20.0-45.0UnUniversity Hospitals Lake West Medical CenterComment on above:Performed By: #### [id number] ####[facility] ([facility])[address] [place], [place] [address]VRV (RBC) [Entitic mass]29.1 gqMvusau15.0-33.0UnUniversity Hospitals Lake West Medical Center Comment on above:Performed By: #### [id number] ####[facility] [place], [place] [address]STP (RBC) [Entitic vol]95.0 rXFecjka49.0-98.0 [facility] PrebleComment on above:Performed By: #### [id number] ####[facility] ([facility]ER)[address] [place], [place] [address]Tryqanxvz (Bld) [#/Vol]0.74 10*3/uLNormal0.10-1.00UnUniversity Hospitals Lake West Medical CenterComment on above:Performed By: #### [id number] ####[facility] ([facility]ER)[address] [place] [address]Ubrfvhvfx/100 WBC (Bld)10.9 %Normal5.0-12.0UnUniversity Hospitals Lake West Medical CenterComment on above:Performed By: #### [id number] ####[facility] ([facility]ER)[address] [address]Pgmbcoqoics (Bld) [#/Vol] 3.98 10*3/uLNormal1.60-7.60UnUniversity Hospitals Lake West Medical CenterComment on above: Performed By: #### [id number] ####[facility] ([facility])[address] [address]Loegzfuexvo/100 WBC (Bld)59.0 %Zcjgmv42.0-72.0UnUniversity Hospitals Lake West Medical CenterComment on above:Performed By: #### [id number] ####[facility] ([facility])[address] [address]LPQD (PER 100 WBCS) BY AUTOMATED COUNT0.0 %Dfytor8SvycuowzsuUniversity Hospitals Lake West Medical CenterComment on above: Performed By: #### [id number] ####[facility] ([facility])[address] [place] [address]CEAWFRGWM (10*3/UL) IN BLOOD AUTOMATED OJYKH035 10*3/uLNormal 150-400UnUniversity Hospitals Lake West Medical CenterComment on above:Performed By: #### [id number] ####[facility] ([facility])[address] [place] [address]ZIR (Bld) [#/Vol]4.98 10*6/uLNormal4.20-5.70UnUniversity Hospitals Lake West Medical Center Comment on above:Performed By: #### [id number] ####[facility] ([facility]ER)[address] [place] [address]PLG (Bld) [#/Vol]6.76 10*3/uLNormal4.00-10.60 [facility] PrebleComment on above:Performed By: #### [id number] ####[facility] ([facility])[address] [address]PWSLAGSYGih 95-30-3986Zepwvzedl [Mass/Vol]1.6 mg/dLLow1.9-2.7UnUniversity Hospitals Lake West Medical CenterComment on above:Performed By: #### [id number] ####[facility] ([facility])[address] [address]AVOEANFNcg 92-69-2828RLYEVYFXZosebq off to jeanette nurseIan RN--with bedside rounding Pt. Cont. To sit up in a chair at bedside Call light within reachNormalUniTrinity Health System East CampusNURSNOTENormal [facility]bleNURSNOTEPt refused to go back to bed at this time Pt. Cont. To sit up in a chair at bedside No c/o of SOB or nausea at this time Resp. Easy @ 18/minNormalUniTrinity Health System East CampusPHOSPHORUSon 39-06-0735Axndztmpk [Mass/Vol]3.4 mg/dLNormal2.5-5.0UnUniversity Hospitals Lake West Medical CenterComment on above:Performed By: #### [id number] ####[facility] ([facility])[address] [place] [address]OWQE GLUCOSE METER UNSOLICITED RESULTS on 36-11-2818Xenrgmm [Mass/Vol]255 mg/sYVrwo60-827YeozfmunlkUniversity Hospitals Lake West Medical CenterComment on above:Order Comment: Waived Testing in the ED is performed under the ED CLIA certificate #[id number].Result Comment: kkgbfce6Bsgdytwgs By: #### [id number] ####[facility] ([facility])[address] [place] [address] Glucose [Mass/Vol]208 mg/qZBmdo27-022SsbypbpbmkUniversity Hospitals Lake West Medical CenterComment on above:Order Comment: Waived Testing in the ED is performed under the ED CLIA certificate #[id number].Result Comment: ybkrchg7Vavddivtm By: #### [id number] ####[facility] ([facility])[address] [place] [address]Jmybmxy [Mass/Vol]173 mg/sCPdrl29-777YwwzfxztfjUniversity Hospitals Lake West Medical CenterComment on above:Order Comment: Waived Testing in the ED is performed under the ED CLIA certificate #[id number].Result Comment: qkswwyi9Pxulnfkwa By: #### [id number] ####[facility] ([facility])[address] [place], [place] [address]Cxmolft [Mass/Vol]210 mg/xTBqab94-141OcqqolefxkUniversity Hospitals Lake West Medical CenterComment on above:Order Comment: Waived Testing in the ED is performed under the ED CLIA certificate #[id number].Result Comment: liafisg3Jtrveudsz By: #### [id number] ####[facility] ([facility])[address] [place], [place] [address]FTKGD METABOLIC PANELon 46-97-5201Ygvct gap [Moles/Vol]8 mmol/LNormal7-20UnUniversity Hospitals Lake West Medical CenterComment on above:Performed By: #### [id number] ####[facility] ([facility])[address] [place], [place] [address]Tdlzyye [Mass/Vol]9.9 mg/dLNormal 8.6-10.3UnUniversity Hospitals Lake West Medical CenterComment on above:Performed By: #### [id number] ####[facility] ([facility])[address] [place], [place] [address]Wjddvfmh [Moles/Vol]98 mmol/GNgenhs70-516VdkjyytwjmUniversity Hospitals Lake West Medical CenterComment on above:Performed By: #### [id number] ####[facility] ([facility])[address] [place], [place] [address]MZ8 [Moles/Vol]33 mmol/JDviu02-84YbhnbdueyfUniversity Hospitals Lake West Medical CenterComment on above:Performed By: #### [id number] ####[facility] ([facility])[address] [place], [place] [address]Clcuxkytoi [Mass/Vol]0.90 mg/dLNormal 0.70-1.30UnUniversity Hospitals Lake West Medical CenterComment on above:Performed By: #### [id number] ####[facility] ([facility])[address] [place] [address]CVYTKIFFFZ FILTRATION RATE ML/MIN/1.73 SQ M.AHZPXCFRG31.8 mL/min/1.73m*2Normal>60.0 [facility] PrebleComment on above:Result Comment: The [facility]???s estimated glomerular filtration rate (eG FR) will [...] group of individuals. Performed By: #### [id number] ####[facility] ([facility])[address] [place] [address]Pgandza [Mass/Vol]142 mg/eXGhii67-173TchlizjkfqUniversity Hospitals Lake West Medical CenterComment on above:Performed By: #### [id number] ####[facility] ([facility])[address] [place] [address]Yxtbttpyr [Moles/Vol]4.1 mmol/LNormal 3.5-5.1UnUniversity Hospitals Lake West Medical CenterComment on above:Performed By: #### [id number] ####[facility] ([facility])[address] [place] [address]Wxuxcj [Moles/Vol]135 mmol/ENkf540-172NtoaibwgzvUniversity Hospitals Lake West Medical CenterComment on above:Performed By: #### [id number] ####[facility] ([facility])[address] [place], [place] [address]Icrm nitrogen [Mass/Vol]19 mg/dLNormal7-25UnUniversity Hospitals Lake West Medical CenterComment on above:Performed By: #### [id number] ####[facility] ([facility])[address] [place], [place] [address]LSZP NITROGEN/CREATININE (MASS RATIO) IN SER/PLAS21.1NormalUnUniversity Hospitals Lake West Medical CenterComment on above: Performed By: #### [id number] ####[facility] ([facility])[address] [place] [address]KBL WITH AUTO DIFFERENTIALon 90-07-9996Vmlehrhzc (Bld) [#/Vol]0.07 10*3/uLNormal0.00-0.20UnUniversity Hospitals Lake West Medical CenterComment on above: Performed By: #### [id number] ####[facility] ([facility])[address] [place] [address]Hhmldppnd/100 WBC (Bld)0.9 %Normal0.0-1.0UnUniversity Hospitals Lake West Medical CenterComment on above:Performed By: #### [id number] ####[facility] ([facility])[address] [place], [place] [address]Ewrfcbghagh (Bld) [#/Vol]0.38 10*3/uL Normal0.00-0.50UnUniversity Hospitals Lake West Medical CenterComment on above:Performed By: #### [id number] ####[facility] ([facility])[address] [place] [address] Eosinophils/100 WBC (Bld)5.0 %Normal0.0-6.0UnUniversity Hospitals [facility] Medical Center Comment on above:Performed By: #### [id number] ####[facility] ([facility])[address] [place], [place] [address]Vntdrdtozko distribution width (RBC) [Ratio]15.2 % High11.5-15.0UnUniversity Hospitals Lake West Medical CenterComment on above:Performed By: #### [id number] ####[facility] ([facility])[address] [place] [address] ERYTHROCYTE MEAN CORPUSCULAR HEMOGLOBIN CONCENTRATION (G/DL) BY UWFZLBMWN53.4 g/dLLow32.0-35.0UnUniversity Hospitals Lake West Medical CenterComment on above:Performed By: #### [id number] ####[facility] ([facility])[address] [place], [place] [address]Kuekmeuqxe (Bld) [Volume fraction]47.1 %Jewpkc16.0-55.0UnUniversity Hospitals Lake West Medical CenterComment on above:Performed By: #### [id number] ####[facility] ([facility])[address] [place] [address]Jkyxszxysq (Bld) [Mass/Vol]14.8 g/dL Ijzmop40.0-17.0UnUniversity Hospitals Lake West Medical CenterComment on above:Performed By: #### [id number] ####[facility] ([facility])[address] [place] [address] Immature granulocytes (Bld) [#/Vol]0.06 10*3/uLNormal0.00-0.20UnUniversity Hospitals Lake West Medical CenterComment on above:Performed By: #### [id number] ####[facility] ([facility])[address] [place] [address]Yjnjvhiw granulocytes/100 WBC (Bld)0.8 %Normal0.0-1.0UnUniversity Hospitals Lake West Medical CenterComment on above: Performed By: #### [id number] ####[facility] ([facility])[address] [place], [place] [address]Udndstkkdod (Bld) [#/Vol]1.99 10*3/uLNormal1.20-4.00 [facility]bleComment on above:Performed By: #### [id number] ####[facility] ([facility])[address] [place], [place] [address]Badanolpmhm/100 WBC (Bld)26.0 %Rgvwdi96.0-45.0UnUniversity Hospitals Lake West Medical CenterComment on above:Performed By: #### [id number] ####[facility] ([facility])[address] [place], [place] [address]VOV (RBC) [Entitic mass]28.8 esRvrqze14.0-33.0UnUniversity Hospitals Lake West Medical CenterComment on above:Performed By: #### [id number] ####[facility] ([facility])[address] [place], [place] [address]MGG (RBC) [Entitic vol] 91.6 eBRqbmxw33.0-98.0UnUniversity Hospitals Lake West Medical CenterComment on above: Performed By: #### [id number] ####[facility] ([facility])[address] [place] [address]Dgutxxgib (Bld) [#/Vol]0.77 10*3/uLNormal0.10-1.00UnUniversity Hospitals Lake West Medical CenterComment on above:Performed By: #### [id number] ####[facility] ([facility])[address] [place] [address]Fzwxfmkvd/100 WBC (Bld) 10.1 %Normal5.0-12.0UnUniversity Hospitals Lake West Medical CenterComment on above: Performed By: #### [id number] ####[facility] ([facility])[address] [place] [address]Yuppvkormda (Bld) [#/Vol]4.39 10*3/uLNormal1.60-7.60 [facility]bleComment on above:Performed By: #### [id number] ####[facility] ([facility])[address] [place] [address]Ffubwdbeirw/100 WBC (Bld)57.2 %Jseeog22.0-72.0UnUniversity Hospitals Lake West Medical CenterComment on above:Performed By: #### [id number] ####[facility] ([facility])[address] [place] [address]VPMS (PER 100 WBCS) BY AUTOMATED COUNT0.0 %Udyroo2HyfesnmnbaUniversity Hospitals Lake West Medical CenterComment on above:Performed By: #### [id number] ####[facility] ([facility])[address] [place] [address]OXOMHTLJK (10*3/UL) IN BLOOD AUTOMATED ZYXEF117 10*3/oZGwkuzr955-202OgicqofxquUniversity Hospitals Lake West Medical Center Comment on above:Performed By: #### [id number] ####[facility] ([facility])[address] [place] [address]WWH (Bld) [#/Vol]5.14 10*6/uLNormal4.20-5.70 [facility] PrebleComment on above:Performed By: #### [id number] ####[facility] ([facility])[address] [place] [address]INO (Bld) [#/Vol]7.66 10*3/uLNormal4.00-10.60UnUniversity Hospitals Lake West Medical CenterComment on above:Performed By: #### [id number] ####[facility] ([facility])[address] [place] [address]IBJYKGWUQlp 25-35-0027Vkdwjpdvy [Mass/Vol]1.6 mg/dLLow1.9-2.7 [facility] PrebleComment on above:Performed By: #### [id number] ####[facility] ([facility])[address] [place] [address]GOTLOFRARYtu 20-22-3644Sqriqgmoj [Mass/Vol]2.8 mg/dLNormal2.5-5.0UnUniversity Hospitals Lake West Medical CenterComment on above:Performed By: #### [id number] ####[facility] ([facility])[address] [place] [address]UWRC GLUCOSE METER UNSOLICITED RESULTS on 07-02-9731Jmjwwxt [Mass/Vol]221 mg/iMOomk04-308AskpfyijuvUniversity Hospitals Lake West Medical CenterComment on above:Order Comment: Waived Testing in the ED is performed under the ED CLIA certificate #[id number].Result Comment: drockolPerformed By: #### [id number] ####[facility] ([facility])[address] [place] [address] Glucose [Mass/Vol]204 mg/mEIwnz45-229YajahtjmswUniversity Hospitals Lake West Medical CenterComment on above:Order Comment: Waived Testing in the ED is performed under the ED CLIA certificate #[id number].Result Comment: yomdea1Yrdswktms By: #### [id number] ####[facility] ([facility])[address] [place] [address]Cuqcqdf [Mass/Vol]222 mg/qRRyze19-896WymgkxtaauUniversity Hospitals Lake West Medical CenterComment on above:Order Comment: Waived Testing in the ED is performed under the ED CLIA certificate #[id number].Result Comment: sifwvp6Rwkqcooim By: #### [id number] ####[facility] ([facility])[address] [place], [place] [address]Jntmabz [Mass/Vol]141 mg/iPHzvm61-530HpdqgkgyozUniversity Hospitals Lake West Medical CenterComment on above:Order Comment: Waived Testing in the ED is performed under the ED CLIA certificate #[id number].Result Comment: vfaswj0Mhcauuvxt By: #### [id number] ####[facility] ([facility])[address] [place], [place] [address]uk 09-04-2024 30NormalUniversKettering Health Greene MemorialBASIC METABOLIC PANELon 09-04-2024 Anion gap [Moles/Vol]7 mmol/LNormal7-20UnUniversity [facility] Comment on above:Performed By: #### [id number] ####[facility] ([facility])[address] [place], [place] [address]Jgrlzei [Mass/Vol]9.6 mg/dLNormal8.6-10.3UnUniversity Hospitals Lake West Medical CenterComment on above:Performed By: #### [id number] ####[facility] ([facility])[address] [place], [place] [address]Yrfvvins [Moles/Vol]98 mmol/PJsdjti23-684KyqsljarhyUniversity Hospitals Lake West Medical CenterComment on above:Performed By: #### [id number] ####[facility] ([facility])[address] [place] [address] CO2 [Moles/Vol]35 mmol/BLlgb89-51WxtoucwmjbUniversity Hospitals Lake West Medical CenterComment on above:Performed By: #### [id number] ####[facility] ([facility])[address] [place], [place] [address]Sqjmidnzkx [Mass/Vol]0.88 mg/dLNormal0.70-1.30UnUniversity Hospitals Lake West Medical CenterComment on above:Performed By: #### [id number] ####[facility] ([facility])[address] [place] [address]JFZFQLCRAI FILTRATION RATE ML/MIN/1.73 SQ M.ZVLYDTCPO94.4 mL/min/1.73m*2Normal>60.0UnUniversity Hospitals Lake West Medical CenterComment on above:Result Comment: [facility]???s estimated glomerular filtration rate (eGFR) will no [...] anyone group of individuals.Performed By: #### [id number] ####[facility] ([facility])[address] [place] [address]Kceiixs [Mass/Vol]155 mg/bHMson69-867MajtjarqluUniversity Hospitals Lake West Medical CenterComment on above:Performed By: #### [id number] ####[facility] ([facility])[address] [place] [address]Qnvfhlzlc [Moles/Vol]4.3 mmol/LNormal3.5-5.1UnUniversity Hospitals Lake West Medical CenterComment on above:Performed By: #### [id number] ####[facility] ([facility])[address] [place], [place] [address]Uhnfht [Moles/Vol]136 mmol/L Cizpjl792-149MormxnyyjvUniversity Hospitals Lake West Medical CenterComment on above:Performed By: #### [id number] ####[facility] ([facility])[address] [place], [place] [address]Funq nitrogen [Mass/Vol]22 mg/dLNormal7-25UnUniversity Hospitals Lake West Medical CenterComment on above:Performed By: #### [id number] ####[facility] ([facility])[address] [place], [place] [address]JVMF NITROGEN/CREATININE (MASS RATIO) IN SER/PLAS25.0Normal [facility]bleComment on above:Performed By: #### [id number] ####[facility] ([facility])[address] [place] [address]DDB WITH AUTO DIFFERENTIALon 84-11-0304Bntjweyjn (Bld) [#/Vol]0.06 10*3/uLNormal0.00-0.20 [facility]bleComment on above:Performed By: #### [id number] ####[facility] ([facility])[address] [place] [address]Jjeaxizra/100 WBC (Bld)1.0 %Normal0.0-1.0UnUniversity Hospitals Lake West Medical CenterComment on above: Performed By: #### [id number] ####[facility] ([facility])[address] [place], [place] [address]Jhdwndfhwof (Bld) [#/Vol]0.38 10*3/uLNormal0.00-0.50 [facility]bleComment on above:Performed By: #### [id number] ####[facility] ([facility])[address] [place] [address]Prvlfjchmzz/100 WBC (Bld)6.1 %High0.0-6.0UnUniversity Hospitals Lake West Medical CenterComment on above: Performed By: #### [id number] ####[facility] ([facility])[address] [facility] [place] [address]Olswaijvqvm distribution width (RBC) [Ratio]15.2 %High 11.5-15.0UnUniversity Hospitals Lake West Medical CenterComment on above:Performed By: #### [id number] ####[facility] ([facility])[address] [place] [address] ERYTHROCYTE MEAN CORPUSCULAR HEMOGLOBIN CONCENTRATION (G/DL) BY LYSLMTCTU47.6 g/dLLow32.0-35.0UnUniversity Hospitals Lake West Medical CenterComment on above:Performed By: #### [id number] ####[facility] ([facility])[address] [place] [address]Onktaifebo (Bld) [Volume fraction]48.4 %Behafk31.0-55.0[facility]bleComment on above:Performed By: #### [id number] ####[facility] ([facility])[address] [place] [address]Xkvgpsongj (Bld) [Mass/Vol]14.8 g/dL Viucwy46.0-17.0UnUniversity Hospitals Lake West Medical CenterComment on above:Performed By: #### [id number] ####[facility] ([facility])[address] [place] [address] Immature granulocytes (Bld) [#/Vol]0.04 10*3/uLNormal0.00-0.20UnUniversity Hospitals Lake West Medical CenterComment on above:Performed By: #### [id number] ####[facility] ([facility])[address] [place] [address]Jkwctssx granulocytes/100 WBC (Bld)0.6 %Normal0.0-1.0UnUniversity Hospitals Lake West Medical CenterComment on above: Performed By: #### [id number] ####[facility] ([facility])[address] [place] [address]Dnquugcwkwu (Bld) [#/Vol]1.68 10*3/uLNormal1.20-4.00 [facility]bleComment on above:Performed By: #### [id number] ####[facility] ([facility])[address] [place] [address]Mzhjewkqils/100 WBC (Bld)27.1 %Cuscca74.0-45.0UnUniversity Hospitals Lake West Medical CenterComment on above:Performed By: #### [id number] ####[facility] ([facility])[address] [place] [address]POS (RBC) [Entitic mass]28.6 rhCnkjwf25.0-33.0UnUniversity Hospitals Lake West Medical CenterComment on above:Performed By: #### [id number] ####[facility] ([facility])[address] [place] [address]TAP (RBC) [Entitic vol] 93.6 vZOiuovz66.0-98.0UnUniversity Hospitals Lake West Medical CenterComment on above: Performed By: #### [id number] ####[facility] ([facility])[address] [place] [address]Sqigefowf (Bld) [#/Vol]0.74 10*3/uLNormal0.10-1.00UnUniversity Hospitals Lake West Medical CenterComment on above:Performed By: #### [id number] ####[facility] ([facility])[address] [place] [address]Qvcflvdni/100 WBC (Bld) 11.9 %Normal5.0-12.0UnUniversity Hospitals Lake West Medical CenterComment on above: Performed By: #### [id number] ####[facility] ([facility])[address] [place] [address]Jfbeqsrnyqt (Bld) [#/Vol]3.31 10*3/uLNormal1.60-7.60 [facility]bleComment on above:Performed By: #### [id number] ####[facility] ([facility])[address] [place] [address]Vhfbgxfuryi/100 WBC (Bld)53.3 %Mezbxf46.0-72.0UnUniversity Hospitals Lake West Medical CenterComment on above:Performed By: #### [id number] ####[facility] ([facility])[address] [place] [address]QERQ (PER 100 WBCS) BY AUTOMATED COUNT0.0 %Emixpv9ZrpwjcqxzlUniversity Hospitals Lake West Medical CenterComment on above:Performed By: #### [id number] ####[facility] ([facility])[address] [place] [address]RLUIMMGTE (10*3/UL) IN BLOOD AUTOMATED AFEJF363 10*3/dAPzuczt464-103HoyucfmuvhUniversity Hospitals Lake West Medical Center Comment on above:Performed By: #### [id number] ####[facility] ([facility])[address] [place] [address]EUL (Bld) [#/Vol]5.17 10*6/uLNormal4.20-5.70 [facility]bleComment on above:Performed By: #### [id number] ####[facility] ([facility])[address] [place] [address]RVG (Bld) [#/Vol]6.21 10*3/uLNormal4.00-10.60[facility]bleComment on above:Performed By: #### [id number] ####[facility] ([facility])[address] [place] [address]WYWS GLUCOSE METER UNSOLICITED RESULTSon 10-27-1253Wvxzdtu [Mass/Vol]219 mg/fODlyt98-096NeiqroaxsyUniversity Hospitals Lake West Medical CenterComment on above:Order Comment: Waived Testing in the ED is performed under the ED CLIA certificate #[id number].Result Comment: ymaodbw2Tvlqfdscv By: #### [id number] ####[facility] ([facility])[address] [place] [address]Whzorkl [Mass/Vol]156 mg/vDUrbx33-195FqlubxajfqUniversity Hospitals Lake West Medical CenterComment on above:Order Comment: Waived Testing in the ED is performed under the ED CLIA certificate #[id number].Result Comment: ntoctv5Hoyhdiqqz By: #### [id number] ####[facility] ([facility])[address] [place] [address]Ugeuujg [Mass/Vol]190 mg/uYHcgw61-669XvuhfabohxUniversity Hospitals Lake West Medical CenterComment on above:Order Comment: Waived Testing in the ED is performed under the ED CLIA certificate #[id number].Result Comment: dfhzkx6Znetdmtvm By: #### [id number] ####[facility] ([facility])[address] [place] [address]Zogwahf [Mass/Vol]149 mg/sGLhsx06-223ClnexzzkofUniversity Hospitals Lake West Medical CenterComment on above:Order Comment: Waived Testing in the ED is performed under the ED CLIA certificate #[id number].Result Comment: qustlp1Kxsllsbdk By: #### [id number] ####[facility] ([facility])[address] [place] [address]12vh 09-03-2024 30NormalUniversKettering Health Greene MemorialBASIC METABOLIC PANELon 09-03-2024 Anion gap [Moles/Vol]11 mmol/LNormal7-20UnUniversity [facility] Comment on above:Performed By: #### [id number] ####[facility] ([facility])[address] [place], [place] [address]Frkimrn [Mass/Vol]9.7 mg/dLNormal8.6-10.3UnUniversity Hospitals Lake West Medical CenterComment on above:Performed By: #### [id number] ####[facility] ([facility])[address] [place], [place] [address]Qiplgfft [Moles/Vol]96 mmol/FZim69-093StxfgtwitxUniversity Hospitals Lake West Medical CenterComment on above:Performed By: #### [id number] ####[facility] ([facility])[address] [place], [place] [address]XC0 [Moles/Vol]33 mmol/MJaix60-54TomkwaqsbhUniversity Hospitals Lake West Medical CenterComment on above:Performed By: #### [id number] ####[facility] ([facility])[address] [place], [place] [address]Nbwtbxatcr [Mass/Vol]0.87 mg/dLNormal0.70-1.30UnUniversity Hospitals Lake West Medical CenterComment on above:Performed By: #### [id number] ####[facility] ([facility])[address] [place], [place] [address]HYJLLSSEJT FILTRATION RATE ML/MIN/1.73 SQ M.UNHODRGQJ16.8 mL/min/1.73m*2Normal>60.0UnUniversity Hospitals Lake West Medical CenterComment on above:Result Comment: The [facility]???s estimated glomerular filtration rate (eGFR) will no [...] anyone group of individuals.Performed By: #### [id number] ####[facility] ([facility])[address] [place], [place] [address]Igugpgn [Mass/Vol]161 mg/xGVemy40-197NyptylchuvUniversity Hospitals Lake West Medical CenterComment on above:Performed By: #### [id number] ####[facility] ([facility])[address] [place], [place] [address]Djwtedfkx [Moles/Vol]4.2 mmol/LNormal3.5-5.1UnUniversity Hospitals Lake West Medical CenterComment on above:Performed By: #### [id number] ####[facility] ([facility])[address] [place], [place] [address]Iofukh [Moles/Vol]136 mmol/L Zmyfhu139-322RdkhxtdwijUniversity Hospitals Lake West Medical CenterComment on above:Performed By: #### [id number] ####[facility] ([facility])[address] [place], [place] [address]Peov nitrogen [Mass/Vol]23 mg/dLNormal7-25UnUniversity Hospitals Lake West Medical CenterComment on above:Performed By: #### [id number] ####[facility] ([facility])[address] [place], [place] [address]GFHS NITROGEN/CREATININE (MASS RATIO) IN SER/PLAS26.4Normal [facility]bleComment on above:Performed By: #### [id number] ####[facility] ([facility])[address] [place] [place] [facility] [address]UMB WITH AUTO DIFFERENTIALon 37-66-9529Fnurfudqe (Bld) [#/Vol]0.07 10*3/uLNormal0.00-0.20 [facility]bleComment on above:Performed By: #### [id number] ####[facility] ([facility])[address] [place], [place] [address]Igiqrtkwc/100 WBC (Bld)0.8 %Normal0.0-1.0UnUniversity Hospitals Lake West Medical CenterComment on above: Performed By: #### [id number] ####[facility] ([facility])[address] [place] [address]Oxghjkcdtml (Bld) [#/Vol]0.40 10*3/uLNormal0.00-0.50 [facility]bleComment on above:Performed By: #### [id number] ####[facility] ([facility])[address] [place], [place] [address]Iwvccqsqycg/100 WBC (Bld)4.8 %Normal0.0-6.0UnUniversity Hospitals Lake West Medical CenterComment on above: Performed By: #### [id number] ####[facility] ([facility])[address] [place], [place] [address]Sgkyjjgatzt distribution width (RBC) [Ratio]15.3 %High 11.5-15.0UnUniversity Hospitals Lake West Medical CenterComment on above:Performed By: #### [id number] ####[facility] ([facility])[address] [place] [address] ERYTHROCYTE MEAN CORPUSCULAR HEMOGLOBIN CONCENTRATION (G/DL) BY BTMGUSYLI81.8 g/dLLow32.0-35.0UnUniversity Hospitals Lake West Medical CenterComment on above:Performed By: #### [id number] ####[facility] ([facility])[address] [place], [place] [address]Doczrpstsp (Bld) [Volume fraction]46.8 %Iwtrmq54.0-55.0UnUniversity Hospitals Lake West Medical CenterComment on above:Performed By: #### [id number] ####[facility] ([facility])[address] [place], [place] [address]Qwqamljiwb (Bld) [Mass/Vol]14.9 g/dL Tpecqb84.0-17.0UnUniversity Hospitals Lake West Medical CenterComment on above:Performed By: #### [id number] ####[facility] ([facility])[address] [place] [address] Immature granulocytes (Bld) [#/Vol]0.05 10*3/uLNormal0.00-0.20UnUniversity Hospitals Lake West Medical CenterComment on above:Performed By: #### [id number] ####[facility] ([facility])[address] [place] [address]Nrykfqlo granulocytes/100 WBC (Bld)0.6 %Normal0.0-1.0UnUniversity Hospitals Lake West Medical CenterComment on above: Performed By: #### [id number] ####[facility] ([facility])[address] [place], [place] [address]Dfnbovwvcmn (Bld) [#/Vol]1.73 10*3/uLNormal1.20-4.00 [facility] PrebleComment on above:Performed By: #### [id number] ####[facility] ([facility])[address] [place], [place] [address]Qeessnjlztl/100 WBC (Bld)20.9 %Enpyxv69.0-45.0UnUniversity Hospitals Lake West Medical CenterComment on above:Performed By: #### [id number] ####[facility] ([facility])[address] [place], [place] [address]SFA (RBC) [Entitic mass]29.3 cxTxhtpl80.0-33.0UnUniversity Hospitals Lake West Medical CenterComment on above:Performed By: #### [id number] ####[facility] ([facility])[address] [place], [place] [address]CCT (RBC) [Entitic vol] 91.9 zHDkrach49.0-98.0UnUniversity Hospitals Lake West Medical CenterComment on above: Performed By: #### [id number] ####[facility] ([facility])[address] [facility] [place] [address]Ffptreewh (Bld) [#/Vol]0.96 10*3/uLNormal0.10-1.00UnUniversity Hospitals Lake West Medical CenterComment on above:Performed By: #### [id number] ####[facility] ([facility])[address] [place] [address]Uuzuvevkz/100 WBC (Bld) 11.6 %Normal5.0-12.0UnUniversity Hospitals Lake West Medical CenterComment on above: Performed By: #### [id number] ####[facility] ([facility])[address] [address]Uzcvqmqfduj (Bld) [#/Vol]5.06 10*3/uLNormal1.60-7.60 [facility] Health PrebleComment on above:Performed By: #### [id number] ####[facility] ([facility])[address] [address]Dmcjwlduszi/100 WBC (Bld)61.3 %Fnfmvb65.0-72.0UnUniversity Hospitals Lake West Medical CenterComment on above:Performed By: #### [id number] ####[facility] ([facility])[address] [place] [address]LHLY (PER 100 WBCS) BY AUTOMATED COUNT0.0 %Lwdmhd6SxpoathoorUniversity Hospitals Lake West Medical CenterComment on above:Performed By: #### [id number] ####[facility] ([facility])[address] [place] [address]ZKLDBMWJP (10*3/UL) IN BLOOD AUTOMATED NXBAL168 10*3/mLWnbetx286-465KsjukjzhasUniversity Hospitals Lake West Medical Center Comment on above:Performed By: #### [id number] ####[facility] ([facility])[address] [place] [address]VTX (Bld) [#/Vol]5.09 10*6/uLNormal4.20-5.70 [facility] PrebleComment on above:Performed By: #### [id number] ####[facility] ([facility])[address] [address]FOQ (Bld) [#/Vol]8.27 10*3/uLNormal4.00-10.60UnUniversity Hospitals Lake West Medical CenterComment on above:Performed By: #### [id number] ####[facility] ([facility])[address] [place] [address]RGPAWKFWEjx 18-08-4823Zhwozkjtn [Mass/Vol]1.6 mg/dLLow1.9-2.7 [facility] PrebleComment on above:Performed By: #### [id number] ####[facility] ([facility])[address] [place] [address]OFRKWNTMRKfg 46-74-3845Phnqzspdk [Mass/Vol]3.3 mg/dLNormal2.5-5.0UnUniversity Hospitals Lake West Medical CenterComment on above:Performed By: #### [id number] ####[facility] ([facility])[address] [address]GBLM GLUCOSE METER UNSOLICITED RESULTS on 63-53-5534Egzekha [Mass/Vol]168 mg/cRVmol65-338WcgwhfinrrUniversity Hospitals Lake West Medical CenterComment on above:Order Comment: Waived Testing in the ED is performed under the ED CLIA certificate #[id number].Result Comment: [email or web address] By: #### [id number] ####[facility] ([facility])[address] [place] [address] Glucose [Mass/Vol]184 mg/xWRkna08-236RsehwefuenUniversity Hospitals Lake West Medical CenterComment on above:Order Comment: Waived Testing in the ED is performed under the ED CLIA certificate #[id number].Result Comment: [email or web address] By: #### [id number] ####[facility] ([facility])[address] [place] [address]Qqmsusp [Mass/Vol]205 mg/uUPvtz60-443WtumicsqogUniversity Hospitals Lake West Medical CenterComment on above:Order Comment: Waived Testing in the ED is performed under the ED CLIA certificate #[id number].Result Comment: [email or web address] By: #### [id number] ####[facility] ([facility])[address] [place] [address]Mmmmyys [Mass/Vol]145 mg/eNMgmb02-686KxdteqkggqUniversity Hospitals Lake West Medical CenterComment on above:Order Comment: Waived Testing in the ED is performed under the ED CLIA certificate #[id number].Result Comment: [email or web address] By: #### [id number] ####[facility] (BE[facility]ER)[address] [place] [address]76ia 09-02-2024 30NormalUniversKettering Health Greene MemorialBASIC METABOLIC PANELon 09-02-2024 Anion gap [Moles/Vol]8 mmol/LNormal7-20UnUniversity Hospitals Lake West Medical Center Comment on above:Performed By: #### [id number] ####[facility] (AKER)[address] [place], [place] [address]Qselumt [Mass/Vol]9.5 mg/dLNormal8.6-10.3UnUniversity Hospitals Lake West Medical CenterComment on above:Performed By: #### [id number] ####[facility] ([facility])[address] [place], [place] [address]Dripnhlm [Moles/Vol]99 mmol/TXgmxov81-534UwhixcjvlkUniversity Hospitals Lake West Medical CenterComment on above:Performed By: #### [id number] ####[facility] ([facility]ER)[address] [place] [address] CO2 [Moles/Vol]37 mmol/RMchv44-94AtfaarrtchUniversity Hospitals Lake West Medical CenterComment on above:Performed By: #### [id number] ####[facility] ([facility]ER)[address] [place], [place] [address]Ghaowvzfln [Mass/Vol]0.77 mg/dLNormal0.70-1.30UnUniversity Hospitals Lake West Medical CenterComment on above:Performed By: #### [id number] ####[facility] (BE[facility]ER)[address] [place], [place] [address]ASOGWFOUGC FILTRATION RATE ML/MIN/1.73 SQ M.WIUWIQOCK24.4 mL/min/1.73m*2Normal>60.0UnUniversity Hospitals Lake West Medical CenterComment on above:Result Comment: [facility]???s estimated glomerular filtration rate (eGFR) will no [...] anyone group of individuals.Performed By: #### [id number] ####[facility] ([facility])[address] [place], [place] [address]Qdsimcd [Mass/Vol]160 mg/mALnux65-839VcowbyojxfUniversity Hospitals Lake West Medical CenterComment on above:Performed By: #### [id number] ####[facility] ([facility])[address] [place], [place] [address]Tpwcwvkse [Moles/Vol]4.1 mmol/LNormal3.5-5.1UnUniversity Hospitals Lake West Medical CenterComment on above:Performed By: #### [id number] ####[facility] ([facility])[address] [place] [address]Pfsqhj [Moles/Vol]140 mmol/L Qbnnwz639-535YhahptknfuUniversity Hospitals Lake West Medical CenterComment on above:Performed By: #### [id number] ####[facility] ([facility])[address] [place], [place] [address]Keel nitrogen [Mass/Vol]16 mg/dLNormal7-25UnUniversity Hospitals Lake West Medical CenterComment on above:Performed By: #### [id number] ####[facility] ([facility])[address] [place] [address]XQGY NITROGEN/CREATININE (MASS RATIO) IN SER/PLAS20.8Normal [facility] PrebleComment on above:Performed By: #### [id number] ####[facility] ([facility])[address] [place], [place] [address]YCZ WITH AUTO DIFFERENTIALon 93-80-6137Ugqejqczy (Bld) [#/Vol]0.07 10*3/uLNormal0.00-0.20 [facility] PrebleComment on above:Performed By: #### [id number] ####[facility] (BEAKER)[address] [place], [place] [address]Rxuoekrus/100 WBC (Bld)1.0 %Normal0.0-1.0UnUniversity Hospitals Lake West Medical CenterComment on above: Performed By: #### [id number] ####[facility] ([facility])[address] [place], [place] [address]Hfgjxfsypzk (Bld) [#/Vol]0.34 10*3/uLNormal0.00-0.50 [facility] PrebleComment on above:Performed By: #### [id number] ####[facility] ([facility])[address] [place], [place] [address]Ntlordcvirb/100 WBC (Bld)5.0 %Normal0.0-6.0UnUniversity Hospitals Lake West Medical CenterComment on above: Performed By: #### [id number] ####[facility] ([facility])[address] [place], [place] [address]Khvzuhpowcx distribution width (RBC) [Ratio]15.1 %High 11.5-15.0UnUniversity Hospitals Lake West Medical CenterComment on above:Performed By: #### [id number] ####[facility] ([facility])[address] [place] [address] ERYTHROCYTE MEAN CORPUSCULAR HEMOGLOBIN CONCENTRATION (G/DL) BY DAHAZXEIX01.0 g/dLLow32.0-35.0UnUniversity Hospitals Lake West Medical CenterComment on above:Performed By: #### [id number] ####[facility] ([facility])[address] [place], [place] [address]Mcbkceyazy (Bld) [Volume fraction]46.2 %Ayiexo28.0-55.0UnUniversity Hospitals Lake West Medical CenterComment on above:Performed By: #### [id number] ####[facility] ([facility])[address] [place], [place] [address]Elwaxtcebf (Bld) [Mass/Vol]14.3 g/dL Tbzbvj79.0-17.0UnUniversity Hospitals Lake West Medical CenterComment on above:Performed By: #### [id number] ####[facility] ([facility] [place] [address] Immature granulocytes (Bld) [#/Vol]0.04 10*3/uLNormal0.00-0.20UnUniversity Hospitals Lake West Medical CenterComment on above:Performed By: #### [id number] ####[facility] ([facility])[address] [facility] [place] [address]Oijwkuvr granulocytes/100 WBC (Bld)0.6 %Normal0.0-1.0UnUniversity Hospitals Lake West Medical CenterComment on above: Performed By: #### [id number] ####[facility] ([facility])[address] [place] [address]Gtgewasqqvp (Bld) [#/Vol]1.60 10*3/uLNormal1.20-4.00 [facility] PrebleComment on above:Performed By: #### [id number] ####[facility] ([facility])[address] [place] [address]Rtgmpgszpgb/100 WBC (Bld)23.7 %Kgxfqf55.0-45.0UnUniversity Hospitals Lake West Medical CenterComment on above:Performed By: #### [id number] ####[facility] ([facility])[address] [place], [place] [address]VLL (RBC) [Entitic mass]28.8 jbNlvple02.0-33.0UnUniversity Hospitals Lake West Medical CenterComment on above:Performed By: #### [id number] ####[facility] ([facility])[address] [facility] [place] [facility] [place] [address]SMF (RBC) [Entitic vol] 93.1 oFTkinhj77.0-98.0UnUniversity Hospitals Lake West Medical CenterComment on above: Performed By: #### [id number] ####[facility] ([facility])[address] [place] [place] [address]Dcayxuqzt (Bld) [#/Vol]0.86 10*3/uLNormal0.10-1.00UnUniversity Hospitals Lake West Medical CenterComment on above:Performed By: #### [id number] ####[facility] ([facility])[address] [place] [address]Kbqdtjmic/100 WBC (Bld) 12.8 %High5.0-12.0[facility] Health PrebleComment on above:Performed By: #### [id number] ####[facility] ([facility])[address] [place] [address]Zzeywqbzjfp (Bld) [#/Vol]3.83 10*3/uLNormal1.60-7.60UnUniversity Hospitals Lake West Medical CenterComment on above:Performed By: #### [id number] ####[facility] ([facility])[address] [place] [address]Nbgynvrzmix/100 WBC (Bld)56.9 %Normal 40.0-72.0UnUniversity Hospitals Lake West Medical CenterComment on above:Performed By: #### [id number] ####[facility] ([facility])[address] [place] [address]MITJ (PER 100 WBCS) BY AUTOMATED COUNT0.0 %Nyyaeu9KitmfsvbsdUniversity Hospitals Lake West Medical Center Comment on above:Performed By: #### [id number] ####[facility] ([facility])[address] [place] [address]BNTTXYXEN (10*3/UL) IN BLOOD AUTOMATED NQENL639 10*3/jKWkabiz304-342NsbqcwdsujUniversity Hospitals Lake West Medical CenterComment on above: Performed By: #### [id number] ####[facility] ([facility])[address] [place] [address]TJY (Bld) [#/Vol]4.96 10*6/uLNormal4.20-5.70UnUniversity Hospitals Lake West Medical CenterComment on above:Performed By: #### [id number] ####[facility] ([facility])[address] [place] [address]YDF (Bld) [#/Vol]6.74 10*3/uLNormal4.00-10.60UnUniversity Hospitals Lake West Medical CenterComment on above: Performed By: #### [id number] ####[facility] ([facility])[address] [place], [place] [address]UGZLGYFRiy 80-13-9791OGXELECHWfupoqSozvwcehtk of [place] Medical CenterNURSNOTENormalUniversKettering Health Greene MemorialPHOSPHORUSon 60-55-47[address]Qhozvphiy [Mass/Vol]3.1 mg/dLNormal2.5-5.0UnUniversity Hospitals Lake West Medical CenterComment on above:Performed By: #### [id number] ####[facility] ([facility])[address] [place], [place] [address]TPAV GLUCOSE METER UNSOLICITED RESULTS on 77-64-5626Fcgcpec [Mass/Vol]289 mg/eJElbo93-434AbvxfxdsdlUniversity Hospitals Lake West Medical CenterComment on above:Order Comment: Waived Testing in the ED is performed under the ED CLIA certificate #[id number].Result Comment: [email or web address] By: #### [id number] ####[facility] ([facility])[address] [place], [place] [address]Jyhomfw [Mass/Vol]260 mg/mYMska40-549CljfnrucnoKettering Health Preble Comment on above:Order Comment: Waived Testing in the ED is performed under the ED CLIA certificate #[id number].Result Comment: sbelcadPerformed By: #### [id number] ####[facility] ([facility])[address] [place], [place] [address]Zxtrrnp [Mass/Vol]204 mg/vYRkcy99-552WaqzprixskUniversity Hospitals Lake West Medical CenterComment on above:Order Comment: Waived Testing in the ED is performed under the ED CLIA certificate #[id number].Result Comment: sbelcadPerformed By: #### [id number] ####[facility] ([facility])[address] [place], [place] [address]Ifbnrmq [Mass/Vol]166 mg/iAPyxy87-082AldrbqxbpdUniversity Hospitals Lake West Medical CenterComment on above:Order Comment: Waived Testing in the ED is performed under the ED CLIA certificate #[id number].Result Comment: sbelcadPerformed By: #### [id number] ####[facility] ([facility]ER)[address] [place], [place] [address]697ue 09-01-2024 30NormalUniTrinity Health System East CampusBASIC METABOLIC PANELon 09-01-2024 Anion gap [Moles/Vol]7 mmol/LNormal7-20UnUniversity Hospitals Lake West Medical Center Comment on above:Performed By: #### [id number] ####[facility] ([facility])[address] [place], [place] [address]Ubxorne [Mass/Vol]9.1 mg/dLNormal8.6-10.3UnUniversity Hospitals Lake West Medical CenterComment on above:Performed By: #### [id number] ####[facility] ([facility])[address] [place], [place] [address]Axoifcbd [Moles/Vol]98 mmol/WGuffrn22-529LpbikvztgiUniversity Hospitals Lake West Medical CenterComment on above:Performed By: #### [id number] ####[facility] ([facility])[address] [place] [address] CO2 [Moles/Vol]36 mmol/FNqzr05-24EtbijmqlrvUniversity Hospitals Lake West Medical CenterComment on above:Performed By: #### [id number] ####[facility] (AKER)[address] [place], [place] [address]Ihrcfhxlef [Mass/Vol]0.84 mg/dLNormal0.70-1.30UnUniversity Hospitals Lake West Medical CenterComment on above:Performed By: #### [id number] ####[facility] ([facility])[address] [place], [place] [address]AQYCDNQCWJ FILTRATION RATE ML/MIN/1.73 SQ M.BTPWFJFMP52.8 mL/min/1.73m*2Normal>60.0UnUniversity Hospitals Lake West Medical CenterComment on above:Result Comment: [facility]???s estimated glomerular filtration rate (eGFR) will no [...] anyone group of individuals.Performed By: #### [id number] ####[facility] ([facility])[address] [place] [address]Wtpiqja [Mass/Vol]190 mg/gUOjvm66-900KfqppckendUniversity Hospitals Lake West Medical CenterComment on above:Performed By: #### [id number] ####[facility] ([facility])[address] [place] [address]Wmgnnetes [Moles/Vol]4.1 mmol/LNormal3.5-5.1UnUniversity Hospitals Lake West Medical CenterComment on above:Performed By: #### [id number] ####[facility] ([facility])[address] [place], [place] [address]Mpjopt [Moles/Vol]137 mmol/L Xppjmx714-026UlnvoufhhlUniversity Hospitals Lake West Medical CenterComment on above:Performed By: #### [id number] ####[facility] ([facility])[address] [place], [place] [address]Nnjp nitrogen [Mass/Vol]18 mg/dLNormal7-25UnUniversity Hospitals Lake West Medical CenterComment on above:Performed By: #### [id number] ####[facility] ([facility])[address]ALESJEFFERSON HOSPITALDineshEL[place], [place] [address]SFKN NITROGEN/CREATININE (MASS RATIO) IN SER/PLAS21.4Normal [facility] PrebleComment on above:Performed By: #### [id number] ####[facility] ([facility])[address] [place] [place] [address]BYV WITH AUTO DIFFERENTIALon 60-55-6947Zeiobflhj (Bld) [#/Vol]0.07 10*3/uLNormal0.00-0.20 [facility] PrebleComment on above:Performed By: #### [id number] ####[facility] ([facility])[address] [place], [place] [address]Lofzhotte/100 WBC (Bld)1.0 %Normal0.0-1.0UnUniversity Hospitals Lake West Medical CenterComment on above: Performed By: #### [id number] ####[facility] ([facility])[address] [place] [address]Ookzaiolrsl (Bld) [#/Vol]0.37 10*3/uLNormal0.00-0.50 [facility] PrebleComment on above:Performed By: #### [id number] ####[facility] ([facility])[address] [place], [place] [address]Thkzrhekeue/100 WBC (Bld)5.1 %Normal0.0-6.0UnUniversity Hospitals Lake West Medical CenterComment on above: Performed By: #### [id number] ####[facility] ([facility])[address] [place], [place] [address]Oshqraqtlrp distribution width (RBC) [Ratio]15.1 %High 11.5-15.0UnUniversity Hospitals Lake West Medical CenterComment on above:Performed By: #### [id number] ####[facility] ([facility])[address] [place] [address] ERYTHROCYTE MEAN CORPUSCULAR HEMOGLOBIN CONCENTRATION (G/DL) BY PNNICHCRW72.3 g/dLLow32.0-35.0UnUniversity Hospitals Lake West Medical CenterComment on above:Performed By: #### [id number] ####[facility] ([facility])[address] [place], [place] [address]Debbleytuy (Bld) [Volume fraction]46.3 %Wahuvz66.0-55.0UnUniversity Hospitals Lake West Medical CenterComment on above:Performed By: #### [id number] ####[facility] ([facility])[address] [place], [place] [address]Aigzmktwbh (Bld) [Mass/Vol]14.5 g/dL Dknfjw73.0-17.0UnUniversity Hospitals Lake West Medical CenterComment on above:Performed By: #### [id number] ####[facility] ([facility])[address] [place] [address] Immature granulocytes (Bld) [#/Vol]0.04 10*3/uLNormal0.00-0.20UnUniversity Hospitals Lake West Medical CenterComment on above:Performed By: #### [id number] ####[facility] ([facility])[address] [place] [place] [address]Qcicnbkv granulocytes/100 WBC (Bld)0.6 %Normal0.0-1.0UnUniversity Hospitals Lake West Medical CenterComment on above: Performed By: #### [id number] ####[facility] ([facility])[address] [facility], [place] [address]Hbzrinwwxza (Bld) [#/Vol]1.46 10*3/uLNormal1.20-4.00 [facility] PrebleComment on above:Performed By: #### [id number] ####[facility] ([facility])[address] [place] [address]Hpmldzblvci/100 WBC (Bld)20.2 %Neiwgv43.0-45.0UnUniversity Hospitals Lake West Medical CenterComment on above:Performed By: #### [id number] ####[facility] ([facility])[address] [place] [place], [place] [address]JKY (RBC) [Entitic mass]29.1 ojBhltmy83.0-33.0UnUniversity Hospitals Lake West Medical CenterComment on above:Performed By: #### [id number] ####[facility] ([facility])[address] [place], [place] [address]MHT (RBC) [Entitic vol] 92.8 hRThozxx63.0-98.0UnUniversity Hospitals Lake West Medical CenterComment on above: Performed By: #### [id number] ####[facility] ([facility])[address] [facility] [place] [facility], [place] [address]Pifpihqns (Bld) [#/Vol]0.85 10*3/uLNormal0.10-1.00UnUniversity Hospitals Lake West Medical CenterComment on above:Performed By: #### [id number] ####[facility] ([facility])[address] [place] [address]Jtznvzagc/100 WBC (Bld) 11.8 %Normal5.0-12.0UnUniversity Hospitals Lake West Medical CenterComment on above: Performed By: #### [id number] ####[facility] ([facility])[address] [address]Homysfxfery (Bld) [#/Vol]4.43 10*3/uLNormal1.60-7.60 [facility] PrebleComment on above:Performed By: #### [id number] ####[facility] ([facility])[address] [address]Sxeydbhzoha/100 WBC (Bld)61.3 %Bpcmmb78.0-72.0UnUniversity Hospitals Lake West Medical CenterComment on above:Performed By: #### [id number] ####[facility] ([facility])[address] [place] [address]UBSS (PER 100 WBCS) BY AUTOMATED COUNT0.0 %Usvqoz9MwwkvddwdbUniversity Hospitals Lake West Medical CenterComment on above:Performed By: #### [id number] ####[facility] ([facility])[address] [place] [address]WPMJMJDLG (10*3/UL) IN BLOOD AUTOMATED NQPSG815 10*3/gYHjkvpu754-313XgyfihznelUniversity Hospitals Lake West Medical Center Comment on above:Performed By: #### [id number] ####[facility] ([facility])[address] [place] [address]BKU (Bld) [#/Vol]4.99 10*6/uLNormal4.20-5.70 [facility] PrebleComment on above:Performed By: #### [id number] ####[facility] ([facility])[address] [place] [address]UBB (Bld) [#/Vol]7.22 10*3/uLNormal4.00-10.60UnUniversity Hospitals Lake West Medical CenterComment on above:Performed By: #### [id number] ####[facility] ([facility])[address] [place] [address]IQRCKCZXQrx 53-79-06[address]Dpcdijhyq [Mass/Vol]1.8 mg/dLLow1.9-2.7 [facility] PrebleComment on above:Performed By: #### [id number] ####[facility] ([facility])[address] [place] [address]PANB GLUCOSE METER UNSOLICITED RESULTSon 93-43-4055Iavzxkg [Mass/Vol]225 mg/wRBmkm15-640 [facility] PrebleComment on above:Order Comment: Waived Testing in the ED is performed under the ED CLIA certificate #[id number].Result Comment: [email or web address] By: #### [id number] ####[facility] ([facility])[address] [place], [place] [address]Srxcken [Mass/Vol]181 mg/lCNznk94-651TbdzkmhwfqUniversity Hospitals Lake West Medical CenterComment on above:Order Comment: Waived Testing in the ED is performed under the ED CLIA certificate #[id number].Result Comment: [email or web address] Performed By: #### [id number] ####[facility] ([facility])[address] [place], [place] [address]Dxapiqv [Mass/Vol]209 mg/hCXhzb15-828GevvjqqcflUniversity Hospitals Lake West Medical CenterComment on above:Order Comment: Waived Testing in the ED is performed under the ED CLIA certificate #[id number].Result Comment: [id number] Performed By: #### [id number] ####[facility] ([facility])[address] [place], [place] [address]Qappdox [Mass/Vol]181 mg/nZIppm83-530IxhilmtvinUniversity Hospitals Lake West Medical CenterComment on above:Order Comment: Waived Testing in the ED is performed under the ED CLIA certificate #[id number].Result Comment: [email or web address] Performed By: #### [id number] ####[facility] ([facility])[address] [place] [id number] [id number] of [place] [facility] Nmiwjk56 NormalUnUniversity Hospitals Lake West Medical CenterBASIC METABOLIC PANELon 07-24-9986Mxupd gap [Moles/Vol]8 mmol/LNormal7-20UnUniversity Hospitals Lake West Medical CenterComment on above:Performed By: #### [id number] ####[facility] ([facility])[address] [place], [place] [address]Cyoloyx [Mass/Vol]9.6 mg/dLNormal8.6-10.3UnUniversity Hospitals Lake West Medical CenterComment on above:Performed By: #### [id number] ####[facility] ([facility])[address] [place], [place] [address]Irxuvxpj [Moles/Vol]97 mmol/ETye39-555 [facility] PrebleComment on above:Performed By: #### [id number] ####[facility] ([facility])[address] [place], [place] [address]VT6 [Moles/Vol] 35 mmol/TYmzs50-13DdwthuplwpUniversity Hospitals Lake West Medical CenterComment on above:Performed By: #### [id number] ####[facility] ([facility])[address] [place] [address] Creatinine [Mass/Vol]0.85 mg/dLNormal0.70-1.30UnUniversity Hospitals Lake West Medical CenterComment on above:Performed By: #### [id number] ####[facility] ([facility])[address] [place], [place] [address]HLLPRERIOU FILTRATION RATE ML/MIN/1.73 SQ M.BIYYSRRQV16.4 mL/min/1.73m*2Normal>60.0UnUniversity Hospitals Lake West Medical Center Comment on above:Result Comment: The [facility]???s estimated glomerular filtration rate (eGFR) will no [...] anyone group of individuals.Performed By: #### [id number] ####[facility] ([facility])[address] [place] [address]Pjjlfhq [Mass/Vol]205 mg/oFHbnc42-979VmudwnqawyUniversity Hospitals Lake West Medical CenterComment on above:Performed By: #### [id number] ####[facility] ([facility])[address] [place] [address]Uptkqutra [Moles/Vol]3.9 mmol/LNormal3.5-5.1UnUniversity Hospitals Lake West Medical CenterComment on above:Performed By: #### [id number] ####[facility] ([facility])[address] [place] [address]Mvjtwq [Moles/Vol]136 mmol/L Fsbhmo557-817MdclkigjqfUniversity Hospitals Lake West Medical CenterComment on above:Performed By: #### [id number] ####[facility] ([facility])[address] [place] [address]Hcle nitrogen [Mass/Vol]21 mg/dLNormal7-25UnUniversity Hospitals Lake West Medical CenterComment on above:Performed By: #### [id number] ####[facility] ([facility])[address] [place] [address]HKBM NITROGEN/CREATININE (MASS RATIO) IN SER/PLAS24.7Normal [facility]bleComment on above:Performed By: #### [id number] ####[facility] ([facility])[address] [place] [address]NXC WITH AUTO DIFFERENTIALon 58-22-0336Cibyfuxsq (Bld) [#/Vol]0.06 10*3/uLNormal0.00-0.20 [facility] PrebleComment on above:Performed By: #### [id number] ####[facility] ([facility])[address] [place] [address]Ydwmiulxm/100 WBC (Bld)0.8 %Normal0.0-1.0UnUniversity Hospitals Lake West Medical CenterComment on above: Performed By: #### [id number] ####[facility] ([facility])[address] [place], [place] [address]Huvbdebjdpo (Bld) [#/Vol]0.38 10*3/uLNormal0.00-0.50 [facility]bleComment on above:Performed By: #### [id number] ####[facility] ([facility])[address] [place], [place] [address]Zhtdubtdbre/100 WBC (Bld)5.3 %Normal0.0-6.0UnUniversity Hospitals Lake West Medical CenterComment on above: Performed By: #### [id number] ####[facility] ([facility])[address] [place], [place] [address]Ylfrbgdhvvz distribution width (RBC) [Ratio]15.2 %High 11.5-15.0UnUniversity Hospitals Lake West Medical CenterComment on above:Performed By: #### [id number] ####[facility] ([facility])[address] [place] [address] ERYTHROCYTE MEAN CORPUSCULAR HEMOGLOBIN CONCENTRATION (G/DL) BY ZHGIXEOBO63.4 g/dLLow32.0-35.0UnUniversity Hospitals Lake West Medical CenterComment on above:Performed By: #### [id number] ####[facility] ([facility])[address] [place], [place] [address]Vemnrhfuyn (Bld) [Volume fraction]48.3 %Akvoef26.0-55.0UnUniversity Hospitals Lake West Medical CenterComment on above:Performed By: #### [id number] ####[facility] ([facility])[address] [place], [place] [address]Aamnixnaph (Bld) [Mass/Vol]14.7 g/dL Qracdv79.0-17.0UnUniversity Hospitals Lake West Medical CenterComment on above:Performed By: #### [id number] ####[facility] ([facility])[address] [place] [address] Immature granulocytes (Bld) [#/Vol]0.06 10*3/uLNormal0.00-0.20UnUniversity Hospitals Lake West Medical CenterComment on above:Performed By: #### [id number] ####[facility] ([facility])[address] [place], [place] [address]Njvcfstx granulocytes/100 WBC (Bld)0.8 %Normal0.0-1.0UnUniversity Hospitals Lake West Medical CenterComment on above: Performed By: #### [id number] ####[facility] ([facility])[address] [place], [place] [address]Gyjmiyrdzfm (Bld) [#/Vol]1.17 10*3/uLLow1.20-4.00UnUniversity Hospitals Lake West Medical CenterComment on above:Performed By: #### [id number] ####[facility] ([facility])[address] [place], [place] [address]Ubefxbrweax/100 WBC (Bld) 16.3 %Low20.0-45.0UnUniversity Hospitals Lake West Medical CenterComment on above:Performed By: #### [id number] ####[facility] ([facility])[address] [place], [place] [address]KAL (RBC) [Entitic mass]29.0 jlJckpju54.0-33.0UnUniversity Hospitals Lake West Medical CenterComment on above:Performed By: #### [id number] ####[facility] ([facility])[address] [place], [place] [address]LCC (RBC) [Entitic vol]95.3 fLNormal 82.0-98.0UnUniversity Hospitals Lake West Medical CenterComment on above:Performed By: #### [id number] ####[facility] ([facility])[address] [place] [address] Monocytes (Bld) [#/Vol]0.82 10*3/uLNormal0.10-1.00UnUniversity Hospitals Lake West Medical CenterComment on above:Performed By: #### [id number] ####[facility] ([facility])[address] [place] [place] [address]Pvsexrpfe/100 WBC (Bld)11.4 %Normal 5.0-12.0UnUniversity Hospitals Lake West Medical CenterComment on above:Performed By: #### [id number] ####[facility] ([facility])[address] [place] [address] Neutrophils (Bld) [#/Vol]4.70 10*3/uLNormal1.60-7.60UnUniversity Hospitals Lake West Medical CenterComment on above:Performed By: #### [id number] ####[facility] ([facility])[address] [place] [address]Otjbarcgptu/100 WBC (Bld)65.4 %Normal 40.0-72.0UnUniversity Hospitals Lake West Medical CenterComment on above:Performed By: #### [id number] ####[facility] ([facility])[address] [place] [address]RDMI (PER 100 WBCS) BY AUTOMATED COUNT0.0 %Xaezll0FimqvvnnhxUniversity Hospitals Lake West Medical Center Comment on above:Performed By: #### [id number] ####[facility] ([facility])[address] [place] [address]AMCJWFWNF (10*3/UL) IN BLOOD AUTOMATED [id number] 10*3/sWEjjlop584-545JvmeulvosoUniversity Hospitals Lake West Medical CenterComment on above: Performed By: #### [id number] ####[facility] ([facility])[address] [place] [address]XCO (Bld) [#/Vol]5.07 10*6/uLNormal4.20-5.70UnUniversity Hospitals Lake West Medical CenterComment on above:Performed By: #### [id number] ####[facility] ([facility])[address] [place] [address]WTA (Bld) [#/Vol]7.19 10*3/uLNormal4.00-10.60UnUniversity Hospitals Lake West Medical CenterComment on above: Performed By: #### [id number] ####[facility] ([facility])[address] [place] [address]ZPRPTRKYXmg 38-12-4079Zshrrvvps [Mass/Vol]1.6 mg/dLLow1.9-2.7 [facility]Comment on above:Performed By: #### [id number] ####[facility] ([facility])[address] [place] [address]MFGN GLUCOSE METER UNSOLICITED RESULTSon 72-49-3110Kroqqlo [Mass/Vol]281 mg/fDTegx74-200 [facility]bleComment on above:Order Comment: Waived Testing in the ED is performed under the ED CLIA certificate #[id number].Result Comment: [email or web address] By: #### [id number] ####[facility] ([facility])[address] [place] [address]Kojazxi [Mass/Vol]157 mg/fMIfds71-758DflfxvwicvUniversity Hospitals Lake West Medical CenterComment on above:Order Comment: Waived Testing in the ED is performed under the ED CLIA certificate #[id number].Result Comment: [email or web address] Performed By: #### [id number] ####[facility] ([facility])[address] [place] [address]Bgcuoyq [Mass/Vol]212 mg/pKHgjc44-310GthxbseeftUniversity Hospitals Lake West Medical CenterComment on above:Order Comment: Waived Testing in the ED is performed under the ED CLIA certificate #[id number].Result Comment: [email or web address] Performed By: #### [id number] ####[facility] ([facility])[address] [place] [address]Alzdaef [Mass/Vol]167 mg/eSZyhr93-325SinuwgndppUniversity Hospitals Lake West Medical CenterComment on above:Order Comment: Waived Testing in the ED is performed under the ED CLIA certificate #[id number].Result Comment: [email or web address] Performed By: #### [id number] ####[facility] ([facility])[address] [place] [address]07zx 83-02-705475IrjnhtQxevyijnuz of [facility] BASIC METABOLIC PANELon 83-53-3820Nihxe gap [Moles/Vol]10 mmol/LNormal7-20 [facility]Comment on above:Performed By: #### [id number] ####[facility] ([facility])[address] [place], [place] [address]Qldfhfh [Mass/Vol]10.3 mg/dLNormal8.6-10.3UnUniversity Hospitals Lake West Medical CenterComment on above:Performed By: #### [id number] ####[facility] ([facility])[address] [place], [place] [address]Emzrineh [Moles/Vol]94 mmol/MJgd47-234FxfcaujcseUniversity Hospitals Lake West Medical CenterComment on above:Performed By: #### [id number] ####[facility] ([facility])[address] [place], [place] [address]SC2 [Moles/Vol]34 mmol/RIdhj50-67 [facility]Comment on above:Performed By: #### [id number] ####[facility] ([facility])[address] [place], [place] [address]Xawetudigo [Mass/Vol]0.98 mg/dLNormal0.70-1.30UnUniversity Hospitals Lake West Medical CenterComment on above:Performed By: #### [id number] ####[facility] ([facility])[address] [place], [place] [address]KECWLNJHRC FILTRATION RATE ML/MIN/1.73 SQ M.MXNXJSCCS10.6 mL/min/1.73m*2Normal>60.0UnUniversity Hospitals Lake West Medical CenterComment on above: Result Comment: The [facility]???s estimated glomerular filtration rate (eGFR) will no [...] anyone group of individuals.Performed By: #### [id number] ####[facility] ([facility])[address], [place] [address]Xhdefae [Mass/Vol]184 mg/jRTdkf96-098NwotefbghtUniversity Hospitals Lake West Medical CenterComment on above:Performed By: #### [id number] ####[facility] ([facility])[address] [place] [address]Wmelfgwdw [Moles/Vol]4.1 mmol/L Normal3.5-5.1UnUniversity Hospitals Lake West Medical CenterComment on above:Performed By: #### [id number] ####[facility] ([facility])[address] [place] [address] Sodium [Moles/Vol]134 mmol/JEli557-522SzhbonuwzpUniversity Hospitals Lake West Medical CenterComment on above:Performed By: #### [id number] ####[facility] ([facility])[address] [place] [address]Jijw nitrogen [Mass/Vol]27 mg/dLHigh7-25UnUniversity Hospitals Lake West Medical CenterComment on above:Performed By: #### [id number] ####[facility] ([facility])[address] [place], [place] [address]IHQT NITROGEN/CREATININE (MASS RATIO) IN SER/PLAS27.6NormalUniversKettering Health Greene MemorialComment on above: Performed By: #### [id number] ####[facility] ([facility])[address] [place] [address]BPS WITH AUTO DIFFERENTIALon 02-44-6488Dukiqawad (Bld) [#/Vol]0.09 10*3/uLNormal0.00-0.20UnUniversity Hospitals Lake West Medical CenterComment on above: Performed By: #### [id number] ####[facility] ([facility])[address] [place] [address]Ezajvppyr/100 WBC (Bld)1.0 %Normal0.0-1.0UnUniversity Hospitals Lake West Medical CenterComment on above:Performed By: #### [id number] ####[facility] ([facility])[address] [place] [address]Vkbwcdbnspx (Bld) [#/Vol]0.54 10*3/uL High0.00-0.50UnUniversity Hospitals Lake West Medical CenterComment on above:Performed By: #### [id number] ####[facility] ([facility])[address] [place] [address] Eosinophils/100 WBC (Bld)5.9 %Normal0.0-6.0UnUniversity Hospitals Lake West Medical Center Comment on above:Performed By: #### [id number] ####[facility] ([facility])[address] [place], [place] [address]Wnmqtechker distribution width (RBC) [Ratio]14.9 % Wtfhwc08.5-15.0UnUniversity Hospitals Lake West Medical CenterComment on above:Performed By: #### [id number] ####[facility] ([facility])[address] [place] [address] ERYTHROCYTE MEAN CORPUSCULAR HEMOGLOBIN CONCENTRATION (G/DL) BY HHJOWKCIY43.0 g/dLLow32.0-35.0UnUniversity Hospitals Lake West Medical CenterComment on above:Performed By: #### [id number] ####[facility] ([facility])[address] [place], [place] [address]Axkbgcdrqb (Bld) [Volume fraction]50.9 %Wyuxnt03.0-55.0UnUniversity Hospitals Lake West Medical CenterComment on above:Performed By: #### [id number] ####[facility] ([facility])[address] [place], [place] [address]Fbmeetgtvy (Bld) [Mass/Vol]15.8 g/dL Rctsum20.0-17.0UnUniversity Hospitals Lake West Medical CenterComment on above:Performed By: #### [id number] ####[facility] ([facility])[address] [place] [address] Immature granulocytes (Bld) [#/Vol]0.06 10*3/uLNormal0.00-0.20UnUniversity Hospitals Lake West Medical CenterComment on above:Performed By: #### [id number] ####[facility] ([facility])[address] [place], [place] [address]Lyhyhtbe granulocytes/100 WBC (Bld)0.7 %Normal0.0-1.0UnUniversity Hospitals Lake West Medical CenterComment on above: Performed By: #### [id number] ####[facility] ([facility])[address] [place] [address]Yyadwesrwih (Bld) [#/Vol]1.65 10*3/uLNormal1.20-4.00 [facility]Comment on above:Performed By: #### [id number] ####[facility] ([facility])[address] [place] [address]Nyjfsfpoiqv/100 WBC (Bld)17.9 %Low20.0-45.0UnUniversity Hospitals Lake West Medical CenterComment on above: Performed By: #### [id number] ####[facility] ([facility])[address] [place] [address]GWU (RBC) [Entitic mass]29.2 mlIthjoo50.0-33.0UnUniversity Hospitals Lake West Medical CenterComment on above:Performed By: #### [id number] ####[facility] ([facility])[address] [place], [place] [address]BYV (RBC) [Entitic vol] 93.9 mRHurxhw67.0-98.0UnUniversity Hospitals Lake West Medical CenterComment on above: Performed By: #### [id number] ####[facility] ([facility])[address] [place], [place] [address]Rvqbjexyl (Bld) [#/Vol]1.05 10*3/uLHigh0.10-1.00UnUniversity Hospitals Lake West Medical CenterComment on above:Performed By: #### [id number] ####[facility] ([facility])[address] [place] [place] [address]Bwxfovequ/100 WBC (Bld) 11.4 %Normal5.0-12.0UnUniversity Hospitals Lake West Medical CenterComment on above: Performed By: #### [id number] ####[facility] ([facility])[address] [place], [place] [address]Ulrttldnqku (Bld) [#/Vol]5.82 10*3/uLNormal1.60-7.60 [facility]bleComment on above:Performed By: #### [id number] ####[facility] ([facility])[address] [place] [address]Xttyofnfjjh/100 WBC (Bld)63.1 %Yfwylx20.0-72.0UnUniversity Hospitals Lake West Medical CenterComment on above:Performed By: #### [id number] ####[facility] ([facility])[address] [address]YZAB (PER 100 WBCS) BY AUTOMATED COUNT0.0 %Wjlrgp8CsygvjtzgsUniversity Hospitals Lake West Medical CenterComment on above:Performed By: #### [id number] ####[facility] ([facility])[address] [address]FLARAGRRF (10*3/UL) IN BLOOD AUTOMATED [id number] 10*3/mEJesdkx518-911WfhpkljmbpUniversity Hospitals Lake West Medical Center Comment on above:Performed By: #### [id number] ####[facility] ([facility])[address] [place] [address]QBM (Bld) [#/Vol]5.42 10*6/uLNormal4.20-5.70 [facility]bleComment on above:Performed By: #### [id number] ####[facility] ([facility])[address] [address]XBM (Bld) [#/Vol]9.21 10*3/uLNormal4.00-10.60UnUniversity Hospitals Lake West Medical CenterComment on above:Performed By: #### [id number] ####[facility] ([facility])[address] [address]SXKEASKgz 76-06-9952PLNZHWHAkivavOyxxkjhtry of [facility] Medical CenterMAGNESIUMon 29-07-8[address]Dkpjdwiah [Mass/Vol]1.7 mg/dLLow1.9-2.7UnUniversity Hospitals Lake West Medical CenterComment on above:Performed By: #### [id number] ####[facility] ([facility])[address] [place], [place] [address]VSLZPRULkw 08-30-2024 NURSNOTENormalUniversity Adena Health SystemPOCT GLUCOSE METER UNSOLICITED RESULTSon 41-63-9190Ldtozse [Mass/Vol]294 mg/iGUlrx27-034MaqglmoomeUniversity Hospitals Lake West Medical CenterComment on above:Order Comment: Waived Testing in the ED is performed under the ED CLIA certificate #[id number].Result Comment: [email or web address] Value NotedPerformed By: #### [id number] ####[facility] ([facility])[address] [place], [place] [address]Yacrbma [Mass/Vol]162 mg/oAKpnr58-023 [facility]bleComment on above:Order Comment: Waived Testing in the ED is performed under the ED CLIA certificate #[id number].Result Comment: [email or web address] By: #### [id number] ####[facility] ([facility])[address] [place], [place] [address]Edmascu [Mass/Vol]193 mg/bGSamc72-117UhnuspfcotKettering Health PrebleComment on above:Order Comment: Waived Testing in the ED is performed under the ED CLIA certificate #[id number].Result Comment: [email or web address] Performed By: #### [id number] ####[facility] ([facility])[address] [place], [place] [address]Pxrhpvy [Mass/Vol]235 mg/bPRgkw89-781TbtxdixhekKettering Health PrebleComment on above:Order Comment: Waived Testing in the ED is performed under the ED CLIA certificate #[id number].Result Comment: [email or web address] Performed By: #### [id number] ####[facility] ([facility])[address] [place], [place] [address]Oqqxhjo [Mass/Vol]209 mg/fBVmcx48-098FnoijgjnmpUniversity Hospitals Lake West Medical CenterComment on above:Order Comment: Waived Testing in the ED is performed under the ED CLIA certificate #[id number].Result Comment: [email or web address] Performed By: #### [id number] ####[facility] ([facility])[address] [place], [place] [address]GYYIH METABOLIC PANELon 58-65-9400Bwxks gap [Moles/Vol]7 mmol/LNormal7-20UnUniversity Hospitals Lake West Medical CenterComment on above:Performed By: #### [id number] ####[facility] ([facility])[address] [place] [address] Calcium [Mass/Vol]10.5 mg/dLHigh8.6-10.3UnUniversity Hospitals [facility] West Medical Center Comment on above:Performed By: #### [id number] ####[facility] ([facility])[address] [place], [place] [address]Ugwrciup [Moles/Vol]93 mmol/RKiw00-237EknisfbvmpUniversity Hospitals Lake West Medical CenterComment on above:Performed By: #### [id number] ####[facility] ([facility])[address] [place] [address]PB2 [Moles/Vol]38 mmol/L Ujnn07-69VcgqwcxoxaUniversity Hospitals Lake West Medical CenterComment on above:Performed By: #### [id number] ####[facility] ([facility])[address] [place], [place] [address]Cnpiroofao [Mass/Vol]0.96 mg/dLNormal0.70-1.30UnUniversity Hospitals Lake West Medical CenterComment on above:Performed By: #### [id number] ####[facility] ([facility])[address] [place], [place] [address]BNSIEWNXFC FILTRATION RATE ML/MIN/1.73 SQ M.ZTPNOVRYN34.7 mL/min/1.73m*2Normal>60.0UnUniversity Hospitals Lake West Medical CenterComment on above: Result Comment: [facility]???s estimated glomerular filtration rate (eGFR) will no [...] anyone group of individuals.Performed By: #### [id number] ####[facility] ([facility])[address] [place] [address]Auvwgky [Mass/Vol]182 mg/sYKxef93-173NswvhwhypdUniversity Hospitals Lake West Medical CenterComment on above:Performed By: #### [id number] ####[facility] ([facility])[address] [place] [address]Rfzcyozfj [Moles/Vol]4.1 mmol/L Normal3.5-5.1UnUniversity Hospitals Lake West Medical CenterComment on above:Performed By: #### [id number] ####[facility] ([facility])[address] [place] [address] Sodium [Moles/Vol]134 mmol/GXvt021-461IwvbuudhctUniversity Hospitals Lake West Medical CenterComment on above:Performed By: #### [id number] ####[facility] ([facility])[address] [place] [address]Rply nitrogen [Mass/Vol]23 mg/dLNormal7-25UnUniversity Hospitals Lake West Medical CenterComment on above:Performed By: #### [id number] ####[facility] ([facility])[address] [place] [address]QFAJ NITROGEN/CREATININE (MASS RATIO) IN SER/PLAS24.0NormalUniversKettering Health Greene MemorialComment on above: Performed By: #### [id number] ####[facility] ([facility])[address] [place] [address]DWK WITH AUTO DIFFERENTIALon [id number] (Bld) [#/Vol]0.09 10*3/uLNormal0.00-0.20UnUniversity Hospitals Lake West Medical CenterComment on above: Performed By: #### [id number] ####[facility] ([facility])[address] [place] [address]Ibxbbzeyy/100 WBC (Bld)1.0 %Normal0.0-1.0UnUniversity Hospitals Lake West Medical CenterComment on above:Performed By: #### [id number] ####[facility] ([facility])[address] [facility] [place] [address]Kpdoublwufe (Bld) [#/Vol]0.48 10*3/uL Normal0.00-0.50UnUniversity Hospitals Lake West Medical CenterComment on above:Performed By: #### [id number] ####[facility] ([facility])[address] [place] [address] Eosinophils/100 WBC (Bld)5.3 %Normal0.0-6.0UnUniversity Hospitals Lake West Medical Center Comment on above:Performed By: #### [id number] ####[facility] ([facility] [facility])[address] [place], [place] [address]Jvdygbxvsqq distribution width (RBC) [Ratio]15.0 % Gbhoeg33.5-15.0UnUniversity Hospitals Lake West Medical CenterComment on above:Performed By: #### [id number] ####[facility] ([facility])[address] [place] [address] ERYTHROCYTE MEAN CORPUSCULAR HEMOGLOBIN CONCENTRATION (G/DL) BY GAWCIGHWG20.5 g/dLLow32.0-35.0UnUniversity Hospitals Lake West Medical CenterComment on above:Performed By: #### [id number] ####[facility] ([facility])[address] [place], [place] [address]Auycxqcswk (Bld) [Volume fraction]51.2 %Uhgtpy74.0-55.0UnUniversity Hospitals Lake West Medical CenterComment on above:Performed By: #### [id number] ####[facility] ([facility])[address] [place], [place] [address]Pljbiawjua (Bld) [Mass/Vol]15.6 g/dL Wwdpeh70.0-17.0UnUniversity Hospitals Lake West Medical CenterComment on above:Performed By: #### [id number] ####[facility] ([facility])[address] [place] [address] Immature granulocytes (Bld) [#/Vol]0.07 10*3/uLNormal0.00-0.20UnUniversity Hospitals Lake West Medical CenterComment on above:Performed By: #### [id number] ####[facility] ([facility])[address] [place], [place] [address]Qtzodzks granulocytes/100 WBC (Bld)0.8 %Normal0.0-1.0UnUniversity Hospitals Lake West Medical CenterComment on above: Performed By: #### [id number] ####[facility] ([facility])[address] [place], [place] [address]Eotiromwetk (Bld) [#/Vol]1.41 10*3/uLNormal1.20-4.00 [facility] PrebleComment on above:Performed By: #### [id number] ####[facility] ([facility])[address] [place], [place] [address]Ecrsdnoqmat/100 WBC (Bld)15.7 %Low20.0-45.0UnUniversity Hospitals Lake West Medical CenterComment on above: Performed By: #### [id number] ####[facility] ([facility])[address] [place], [place] [address]SFN (RBC) [Entitic mass]29.0 dbIkkllo43.0-33.0UnUniversity Hospitals Lake West Medical CenterComment on above:Performed By: #### [id number] ####[facility] ([facility])[address] [place], [place] [address]ORD (RBC) [Entitic vol] 95.2 fBBhodyx77.0-98.0UnUniversity Hospitals Lake West Medical CenterComment on above: Performed By: #### [id number] ####[facility] ([facility])[address] [place], [place] [address]Abtsngsbt (Bld) [#/Vol]0.82 10*3/uLNormal0.10-1.00UnUniversity Hospitals Lake West Medical CenterComment on above:Performed By: #### [id number] ####[facility] ([facility])[address] [place], [place] [address]Seeilgups/100 WBC (Bld) 9.1 %Normal5.0-12.0UnUniversity Hospitals Lake West Medical CenterComment on above:Performed By: #### [id number] ####[facility] ([facility])[address] [place] [address]Zoupcivfalw (Bld) [#/Vol]6.11 10*3/uLNormal1.60-7.60UnUniversity Hospitals Lake West Medical CenterComment on above:Performed By: #### [id number] ####[facility] ([facility])[address] [place] [address]Omdyzaliyre/100 WBC (Bld)68.1 %Normal 40.0-72.0UnUniversity Hospitals Lake West Medical CenterComment on above:Performed By: #### [id number] ####[facility] ([facility])[address] [place] [address]BODG (PER 100 WBCS) BY AUTOMATED COUNT0.0 %Qmbykv2MmpnolcwbgUniversity Hospitals Lake West Medical Center Comment on above:Performed By: #### [id number] ####[facility] ([facility])[address] [place] [address]NVEUDDJGC (10*3/UL) IN BLOOD AUTOMATED OFZCF892 10*3/bIDljpth910-934LlcelegdjuUniversity Hospitals Lake West Medical CenterComment on above: Performed By: #### [id number] ####[facility] ([facility])[address] [place] [address]QIP (Bld) [#/Vol]5.38 10*6/uLNormal4.20-5.70UnUniversity Hospitals Lake West Medical CenterComment on above:Performed By: #### [id number] ####[facility] ([facility])[address] [place] [address]YEC (Bld) [#/Vol]8.98 10*3/uLNormal4.00-10.60UnUniversity Hospitals Lake West Medical CenterComment on above: Performed By: #### [id number] ####[facility] ([facility])[address] [place] [address]HCLWRAELXwe 60-37-4836Szymfvtwi [Mass/Vol]1.7 mg/dLLow1.9-2.7 [facility] PrebleComment on above:Performed By: #### [id number] ####[facility] ([facility])[address] [place], [place] [address]HNRR GLUCOSE METER UNSOLICITED RESULTSon 99-53-9230Klfketi [Mass/Vol]284 mg/aKFrza83-372 [facility]bleComment on above:Order Comment: Waived Testing in the ED is performed under the ED CLIA certificate #[id number].Result Comment: [email or web address] By: #### [id number] ####[facility] ([facility])[address] [place], [place] [address]Kjblrzh [Mass/Vol]259 mg/bNDwgk15-822AleesbwbknUniversity Hospitals Lake West Medical CenterComment on above:Order Comment: Waived Testing in the ED is performed under the ED CLIA certificate #[id number].Result Comment: [email or web address] Performed By: #### [id number] ####[facility] ([facility])[address] [place], [place] [address]Gxvpbtk [Mass/Vol]301 mg/wGOgzw53-541LsttpnfhcfUniversity Hospitals Lake West Medical CenterComment on above:Order Comment: Waived Testing in the ED is performed under the ED CLIA certificate #[id number].Result Comment: Performed By: #### [id number] ####[facility] ([facility])[address] [place], [place] [address]Vecveae [Mass/Vol]166 mg/zSXjri74-422ZugsuneukhUniversity Hospitals Lake West Medical CenterComment on above:Order Comment: Waived Testing in the ED is performed under the ED CLIA certificate #[id number].Result Comment: [email or web address] Performed By: #### [id number] ####[facility] ([facility])[address] [place], [place] [address]LFCZU METABOLIC PANELon 19-74-2938Mifcp gap [Moles/Vol]8 mmol/LNormal7-20UnUniversity Hospitals Lake West Medical CenterComment on above:Performed By: #### [id number] ####[facility] ([facility])[address] [place] [address] Calcium [Mass/Vol]9.8 mg/dLNormal8.6-10.3UnUniversity Hospitals Lake West Medical Center Comment on above:Performed By: #### [id number] ####[facility] ([facility])[address] [place] [address]Zudbtmtk [Moles/Vol]96 mmol/KDvm14-896MzgiswtdcvUniversity Hospitals Lake West Medical CenterComment on above:Performed By: #### [id number] ####[facility] ([facility])[address] [place] [address]GU5 [Moles/Vol]37 mmol/L Dbcv89-34KijangkzurUniversity Hospitals Lake West Medical CenterComment on above:Performed By: #### [id number] ####[facility] ([facility])[address] [place] [address]Bclpygohpa [Mass/Vol]0.82 mg/dLNormal0.70-1.30UnUniversity Hospitals Lake West Medical CenterComment on above:Performed By: #### [id number] ####[facility] ([facility])[address] [place] [address]MNGHFUSVIS FILTRATION RATE ML/MIN/1.73 SQ M.BSYWNWYRP04.5 mL/min/1.73m*2Normal>60.0UnUniversity Hospitals Lake West Medical CenterComment on above: Result Comment: [facility]???s estimated glomerular filtration rate (eGFR) will no [...] anyone group of individuals.Performed By: #### [id number] ####[facility] ([facility])[address] [place] [address]Wwnnqop [Mass/Vol]183 mg/gQZhyg56-386FmkjtchmibUniversity Hospitals Lake West Medical CenterComment on above:Performed By: #### [id number] ####[facility] ([facility])[address] [place] [address]Krjckdmfp [Moles/Vol]3.7 mmol/L Normal3.5-5.1UnUniversity Hospitals Lake West Medical CenterComment on above:Performed By: #### [id number] ####[facility] ([facility])[address] [place] [address] Sodium [Moles/Vol]137 mmol/IHstrcn470-470DcwxvwdvegUniversity Hospitals Lake West Medical Center Comment on above:Performed By: #### [id number] ####[facility] ([facility])[address] [place] [address]Nyib nitrogen [Mass/Vol]17 mg/dLNormal7-25 [facility]bleComment on above:Performed By: #### [id number] ####[facility] ([facility])[address] [place] [address]HKAH NITROGEN/CREATININE (MASS RATIO) IN SER/PLAS20.7NormalUniversKettering Health Greene MemorialComment on above:Performed By: #### [id number] ####[facility] ([facility])[address] [place], [place] [address]AUU WITH AUTO DIFFERENTIALon 36-61-8735Yurdownah (Bld) [#/Vol]0.09 10*3/uLNormal0.00-0.20UnUniversity Hospitals Lake West Medical CenterComment on above:Performed By: #### [id number] ####[facility] ([facility])[address] [place], [place] [address]Aodpxvwxi/100 WBC (Bld)0.9 %Normal 0.0-1.0UnUniversity Hospitals Lake West Medical CenterComment on above:Performed By: #### [id number] ####[facility] ([facility])[address] [place] [address] Eosinophils (Bld) [#/Vol]0.40 10*3/uLNormal0.00-0.50UnUniversity Hospitals Lake West Medical CenterComment on above:Performed By: #### [id number] ####[facility] ([facility])[address] [place] [address]Aogwioshyvh/100 WBC (Bld)4.2 %Normal 0.0-6.0UnUniversity Hospitals Lake West Medical CenterComment on above:Performed By: #### [id number] ####[facility] ([facility])[address] [place] [address] Erythrocyte distribution width (RBC) [Ratio]14.8 %Itjxiz64.5-15.0UnUniversity Hospitals Lake West Medical CenterComment on above:Performed By: #### [id number] ####[facility] [place], [place] [address]XVGOEXFOMST MEAN CORPUSCULAR HEMOGLOBIN CONCENTRATION (G/DL) BY BKKAMSLPZ83.3 g/dLLow32.0-35.0 [facility]bleComment on above:Performed By: #### [id number] ####[facility] ([facility])[address] [place], [place] [address]Nmxgycntdo (Bld) [Volume fraction]50.9 %Eedfyp12.0-55.0UnUniversity Hospitals [facility] Center Comment on above:Performed By: #### [id number] ####[facility] ([facility])[address] [place], [place] [address]Xxrxtbadfc (Bld) [Mass/Vol]15.4 g/aHZsjcdz47.0-17.0 [facility]bleComment on above:Performed By: #### [id number] ####[facility] ([facility])[address] [place], [place] [address]Udyqxjda granulocytes (Bld) [#/Vol]0.06 10*3/uLNormal0.00-0.20UnUniversity Hospitals Lake West Medical CenterComment on above:Performed By: #### [id number] ####[facility] ([facility])[address] [place], [place] [address]Drqagidu granulocytes/100 WBC (Bld)0.6 %Normal0.0-1.0UnUniversity Hospitals Lake West Medical CenterComment on above:Performed By: #### [id number] ####[facility] ([facility])[address] [place] [address] Lymphocytes (Bld) [#/Vol]1.68 10*3/uLNormal1.20-4.00UnUniversity Hospitals Lake West Medical CenterComment on above:Performed By: #### [id number] ####[facility] ([facility])[address] [place], [place] [address]Whjzpevxkyb/100 WBC (Bld)17.6 %Low 20.0-45.0UnUniversity Hospitals Lake West Medical CenterComment on above:Performed By: #### [id number] ####[facility] ([facility])[address] [place], [place] [address]RHH (RBC) [Entitic mass]29.2 nyJwauho75.0-33.0UnUniversity Hospitals [facility] Center Comment on above:Performed By: #### [id number] ####[facility] ([facility])[address] [place], [place] [address]JHP (RBC) [Entitic vol]96.6 uNWnzfdx40.0-98.0 [facility]bleComment on above:Performed By: #### [id number] ####[facility] ([facility])[address] [place], [place] [address]Sshcfuuzu (Bld) [#/Vol]0.99 10*3/uLNormal0.10-1.00UnUniversity Hospitals Lake West Medical CenterComment on above:Performed By: #### [id number] ####[facility] ([facility])[address] [place], [place] [address]Xrwhyobqf/100 WBC (Bld)10.4 %Normal5.0-12.0UnUniversity Hospitals Lake West Medical CenterComment on above:Performed By: #### [id number] ####[facility] ([facility])[address] [place], [place] [address]Rgctfselbwk (Bld) [#/Vol] 6.33 10*3/uLNormal1.60-7.60UnUniversity Hospitals Lake West Medical CenterComment on above: Performed By: #### [id number] ####[facility] ([facility])[address] [address]Gvtnbssolsi/100 WBC (Bld)66.3 %Vyfdyw61.0-72.0UnUniversity Hospitals Lake West Medical CenterComment on above:Performed By: #### [id number] ####[facility] ([facility])[address] [address]SGAJ (PER 100 WBCS) BY AUTOMATED COUNT0.0 %Kvdzqq7NoifrajhhhUniversity Hospitals Lake West Medical CenterComment on above: Performed By: #### [id number] ####[facility] ([facility])[address] [place] [address]WVLLIHDPL (10*3/UL) IN BLOOD AUTOMATED [id number] 10*3/uLNormal 150-400UnUniversity Hospitals Lake West Medical CenterComment on above:Performed By: #### [id number] ####[facility] ([facility])[address] [address]GOQ (Bld) [#/Vol]5.27 10*6/uLNormal4.20-5.70UnUniversity Hospitals [facility] Medical Center Comment on above:Performed By: #### [id number] ####[facility] ([facility])[address] [address]FFB (Bld) [#/Vol]9.55 10*3/uLNormal4.00-10.60 [facility]bleComment on above:Performed By: #### [id number] ####[facility] ([facility])[address] [address]ILJQVYZFQnb 92-40-7[address]Iziqxfxvt [Mass/Vol]1.8 mg/dLLow1.9-2.7UnUniversity Hospitals Lake West Medical CenterComment on above:Performed By: #### [id number] ####[facility] ([facility])[address] [address]UZKWGFYUda 60-04-5882EIVAIMCYTsnepm [facility] PreblePOCT GLUCOSE METER UNSOLICITED RESULTSon 04-55-1549Tvbobzy [Mass/Vol]258 mg/uVZxez67-981EndbbdolvvUniversity Hospitals Lake West Medical CenterComment on above:Order Comment: Waived Testing in the ED is performed under the ED CLIA certificate #[id number].Result Comment: [id number] By: #### [id number] ####[facility] ([facility])[address] [place] [address] Glucose [Mass/Vol]177 mg/fLUxnk92-285LbvvzlrmkqUniversity Hospitals Lake West Medical CenterComment on above:Order Comment: Waived Testing in the ED is performed under the ED CLIA certificate #[id number].Result Comment: [id number] By: #### [id number] ####[facility] ([facility])[address] [place], [place] [address]Yejette [Mass/Vol]242 mg/uNNkrm80-626RxslwwniewUniversity Hospitals Lake West Medical CenterComment on above:Order Comment: Waived Testing in the ED is performed under the ED CLIA certificate #[id number].Result Comment: [id number] By: #### [id number] ####[facility] ([facility])[address] [place], [place] [address]Rdfnveo [Mass/Vol]200 mg/lVSizi26-611HzgpcopsxeUniversity Hospitals Lake West Medical CenterComment on above:Order Comment: Waived Testing in the ED is performed under the ED CLIA certificate #[id number].Result Comment: [id number] By: #### [id number] ####[facility] ([facility])[address] [place], [place] [address]75za 08-27-2024 30NormalUniversKettering Health Greene MemorialBASIC METABOLIC PANELon 08-27-2024 Anion gap [Moles/Vol]6 mmol/LLow7-20UnUniversity Hospitals Lake West Medical CenterComment on above:Performed By: #### [id number] ####[facility] ([facility])[address] [place], [place] [address]Dowtuum [Mass/Vol]9.8 mg/dLNormal8.6-10.3UnUniversity Hospitals Lake West Medical CenterComment on above:Performed By: #### [id number] ####[facility] ([facility])[address] [place] [address]Qoxnyrvj [Moles/Vol]97 mmol/GHzk72-425 [facility]bleComment on above:Performed By: #### [id number] ####[facility] ([facility])[address] [place] [address]SJ0 [Moles/Vol] 41 mmol/LCritically gauw74-15VrfbqzclqxUniversity Hospitals Lake West Medical CenterComment on above:Performed By: #### [id number] ####[facility] ([facility])[address] [place] [address]Jyzsfvozhv [Mass/Vol]0.81 mg/dLNormal0.70-1.30UnUniversity Hospitals Lake West Medical CenterComment on above:Performed By: #### [id number] ####[facility] ([facility])[address] [place], [place] [address]OOUPTIAKZB FILTRATION RATE ML/MIN/1.73 SQ M.DDEALLNSW08.8 mL/min/1.73m*2Normal>60.0UnUniversity Hospitals Lake West Medical CenterComment on above:Result Comment: The [facility]???s estimated glomerular filtration rate (eGFR) will no [...] anyone group of individuals.Performed By: #### [id number] ####[facility] ([facility])[address] [place] [address]Qnxrqgc [Mass/Vol]187 mg/oBFtgg10-596FbxquueasyUniversity Hospitals Lake West Medical CenterComment on above:Performed By: #### [id number] ####[facility] ([facility])[address] [place], [place] [address]Chbaqqsoy [Moles/Vol]3.5 mmol/LNormal3.5-5.1UnUniversity Hospitals Lake West Medical CenterComment on above:Performed By: #### [id number] ####[facility] ([facility])[address] [place] [address]Jqtbxo [Moles/Vol]140 mmol/L Gyzino235-152MezoimduvdUniversity Hospitals Lake West Medical CenterComment on above:Performed By: #### [id number] ####[facility] ([facility])[address] [place] [address]Foxv nitrogen [Mass/Vol]16 mg/dLNormal7-25UnUniversity Hospitals Lake West Medical CenterComment on above:Performed By: #### [id number] ####[facility] ([facility])[address] [place] [address]TKWE NITROGEN/CREATININE (MASS RATIO) IN SER/PLAS19.8Normal [facility]bleComment on above:Performed By: #### [id number] ####[facility] ([facility])[address] [place] [address]FWW WITH AUTO DIFFERENTIALon 49-28-1730Ekadhjyxv (Bld) [#/Vol]0.06 10*3/uLNormal0.00-0.20 [facility]bleComment on above:Performed By: #### [id number] ####[facility] ([facility])[address] [place] [address]Gpdzavtvt/100 WBC (Bld)0.7 %Normal0.0-1.0UnUniversity Hospitals Lake West Medical CenterComment on above: Performed By: #### [id number] ####[facility] ([facility])[address] [place] [address]Glneinhxxud (Bld) [#/Vol]0.38 10*3/uLNormal0.00-0.50 [facility]bleComment on above:Performed By: #### [id number] ####[facility] ([facility])[address] [place] [address]Rnfsnbjvkjs/100 WBC (Bld)4.7 %Normal0.0-6.0UnUniversity Hospitals Lake West Medical CenterComment on above: Performed By: #### [id number] ####[facility] ([facility])[address] [place], [place] [address]Cumlvjciugs distribution width (RBC) [Ratio]14.6 %Normal 11.5-15.0UnUniversity Hospitals Lake West Medical CenterComment on above:Performed By: #### [id number] ####[facility] ([facility])[address] [place] [address] ERYTHROCYTE MEAN CORPUSCULAR HEMOGLOBIN CONCENTRATION (G/DL) BY TMASIFOBP95.7 g/dLLow32.0-35.0UnUniversity Hospitals Lake West Medical CenterComment on above:Performed By: #### [id number] ####[facility] ([facility])[address] [place], [place] [address]Zimcuwfybm (Bld) [Volume fraction]49.5 %Iwnhnz14.0-55.0UnUniversity Hospitals Lake West Medical CenterComment on above:Performed By: #### [id number] ####[facility] ([facility])[address] [place], [place] [address]Sjjrjvmxea (Bld) [Mass/Vol]14.7 g/dL Rpcosh02.0-17.0UnUniversity Hospitals Lake West Medical CenterComment on above:Performed By: #### [id number] ####[facility] ([facility])[address] [place] [address] Immature granulocytes (Bld) [#/Vol]0.04 10*3/uLNormal0.00-0.20UnUniversity Hospitals Lake West Medical CenterComment on above:Performed By: #### [id number] ####[facility] ([facility])[address] [place], [place] [address]Jenrvozv granulocytes/100 WBC (Bld)0.5 %Normal0.0-1.0UnUniversity Hospitals Lake West Medical CenterComment on above: Performed By: #### [id number] ####[facility] ([facility])[address] [place], [place] [address]Xzbzakrxkyj (Bld) [#/Vol]1.42 10*3/uLNormal1.20-4.00 [facility] PrebleComment on above:Performed By: #### [id number] ####[facility] ([facility])[address] [place] [address]Qxajrqgpwef/100 WBC (Bld)17.7 %Low20.0-45.0UnUniversity Hospitals Lake West Medical CenterComment on above: Performed By: #### [id number] ####[facility] ([facility])[address] [place] [address]SEO (RBC) [Entitic mass]28.9 hqVzfsjl82.0-33.0UnUniversity Hospitals Lake West Medical CenterComment on above:Performed By: #### [id number] ####[facility] ([facility])[address] [place], [place] [address]DXF (RBC) [Entitic vol] 97.4 gZMmxizt47.0-98.0UnUniversity Hospitals Lake West Medical CenterComment on above: Performed By: #### [id number] ####[facility] ([facility])[address] [place], [place] [address]Tqaqbyidk (Bld) [#/Vol]0.92 10*3/uLNormal0.10-1.00UnUniversity Hospitals Lake West Medical CenterComment on above:Performed By: #### [id number] ####[facility] ([facility])[address] [place], [place] [address]Wdvtiuaym/100 WBC (Bld) 11.5 %Normal5.0-12.0UnUniversity Hospitals Lake West Medical CenterComment on above: Performed By: #### [id number] ####[facility] ([facility])[address] [place], [place] [address]Haupkgekwjo (Bld) [#/Vol]5.19 10*3/uLNormal1.60-7.60 [facility] PrebleComment on above:Performed By: #### [id number] ####[facility] ([facility])[address] [place], [place] [address]Ivnykaaowin/100 WBC (Bld)64.9 %Yeucfm11.0-72.0UnUniversity Hospitals Lake West Medical CenterComment on above:Performed By: #### [id number] ####[facility] ([facility])[address] [place] [address]OGDC (PER 100 WBCS) BY AUTOMATED COUNT0.0 %Kqpadd9FdiqkwihvkUniversity Hospitals Lake West Medical CenterComment on above:Performed By: #### [id number] ####[facility] ([facility])[address] [place] [address]ASWIYJJGC (10*3/UL) IN BLOOD AUTOMATED [id number] 10*3/aBUhvmss983-991GdtopyegtbUniversity Hospitals Lake West Medical Center Comment on above:Performed By: #### [id number] ####[facility] ([facility])[address] [place] [address]QEM (Bld) [#/Vol]5.08 10*6/uLNormal4.20-5.70 [facility]bleComment on above:Performed By: #### [id number] ####[facility] ([facility])[address] [place] [address]RHR (Bld) [#/Vol]8.01 10*3/uLNormal4.00-10.60UnUniversity Hospitals Lake West Medical CenterComment on above:Performed By: #### [id number] ####[facility] ([facility])[address] [place] [address]GTAGBWRKEwv 09-48-8697Ewguorasz [Mass/Vol]1.6 mg/dLLow1.9-2.7 [facility] PrebleComment on above:Performed By: #### [id number] ####[facility] ([facility])[address] [place] [address]CADX GLUCOSE METER UNSOLICITED RESULTSon 03-84-9803Ghgwptz [Mass/Vol]144 mg/vVOtul97-712 [facility] PrebleComment on above:Order Comment: Waived Testing in the ED is performed under the ED CLIA certificate #[id number].Result Comment: [email or web address] By: #### [id number] ####[facility] ([facility])[address] [place], [place] [address]Izkkflt [Mass/Vol]204 mg/uXZgex13-362EjgdmqyenlUniversity Hospitals Lake West Medical CenterComment on above:Order Comment: Waived Testing in the ED is performed under the ED CLIA certificate #[id number].Result Comment: [email or web address] Performed By: #### [id number] ####[facility] ([facility])[address] [place], [place] [address]Nyevzou [Mass/Vol]230 mg/pFKrsz64-261WgmhmqgmtrUniversity Hospitals Lake West Medical CenterComment on above:Order Comment: Waived Testing in the ED is performed under the ED CLIA certificate #[id number].Result Comment: [email or web address] Performed By: #### [id number] ####[facility] ([facility])[address] [place], [place] [address]Rjfbycb [Mass/Vol]174 mg/qQLqnh15-969XaydtarymbUniversity Hospitals Lake West Medical CenterComment on above:Order Comment: Waived Testing in the ED is performed under the ED CLIA certificate #[id number].Result Comment: [email or web address] Performed By: #### [id number] ####[facility] [place], [place] [address]TXQDA METABOLIC PANELon 55-79-6680Voazv gap [Moles/Vol]9 mmol/LNormal7-20UnUniversity Hospitals Lake West Medical CenterComment on above:Performed By: #### [id number] ####[facility] ([facility])[address] [place] [address] Calcium [Mass/Vol]9.4 mg/dLNormal8.6-10.3UnUniversity Hospitals Lake West Medical Center Comment on above:Performed By: #### [id number] ####[facility] ([facility])[address] [place], [place] [address]Zmjkeqpi [Moles/Vol]100 mmol/RBalrkr13-450 [facility] PrebleComment on above:Performed By: #### [id number] ####[facility] [place], [place] [address]NN6 [Moles/Vol] 36 mmol/BOpdz53-73JudpqifubyUniversity Hospitals Lake West Medical CenterComment on above:Performed By: #### [id number] ####[facility] ([facility])[address] [place] [address] Creatinine [Mass/Vol]0.78 mg/dLNormal0.70-1.30UnUniversity Hospitals Lake West Medical CenterComment on above:Performed By: #### [id number] ####[facility] ([facility])[address] [place], [place] [address]EHCCOMEZEL FILTRATION RATE ML/MIN/1.73 SQ M.ESRTCGZCU63.0 mL/min/1.73m*2Normal>60.0UnUniversity Hospitals Lake West Medical Center Comment on above:Result Comment: [facility]???s estimated glomerular filtration rate (eGFR) will no [...] anyone group of individuals.Performed By: #### [id number] ####[facility] ([facility])[address] [place], [place] [address]Zgbxnqc [Mass/Vol]156 mg/zTQoma68-749AjhlpsryodUniversity Hospitals Lake West Medical CenterComment on above:Performed By: #### [id number] ####[facility] ([facility])[address] [place], [place] [address]Nkfieepcq [Moles/Vol]3.5 mmol/LNormal3.5-5.1UnUniversity Hospitals Lake West Medical CenterComment on above:Performed By: #### [id number] ####[facility] ([facility])[address] [place] [address]Kkjxuh [Moles/Vol]141 mmol/L Wacpbb808-739IygnmvqxeeUniversity Hospitals Lake West Medical CenterComment on above:Performed By: #### [id number] ####[facility] ([facility])[address] [place] [address]Tpmh nitrogen [Mass/Vol]17 mg/dLNormal7-25UnUniversity Hospitals Lake West Medical CenterComment on above:Performed By: #### [id number] ####[facility] ([facility])[address] [place] [address]JQMD NITROGEN/CREATININE (MASS RATIO) IN SER/PLAS21.8Normal [facility] PrebleComment on above:Performed By: #### [id number] ####[facility] ([facility])[address] [place] [address]RHP WITH AUTO DIFFERENTIALon 49-91-3471Eadeuuwcd (Bld) [#/Vol]0.06 10*3/uLNormal0.00-0.20 [facility] PrebleComment on above:Performed By: #### [id number] ####[facility] ([facility])[address] [place], [place] [address]Zchxhzjcb/100 WBC (Bld)0.8 %Normal0.0-1.0UnUniversity Hospitals Lake West Medical CenterComment on above: Performed By: #### [id number] ####[facility] ([facility])[address] [place] [address]Wjpsyenauxk (Bld) [#/Vol]0.39 10*3/uLNormal0.00-0.50 [facility] PrebleComment on above:Performed By: #### [id number] ####[facility] ([facility])[address] [place] [address]Qyfqnlarnec/100 WBC (Bld)5.4 %Normal0.0-6.0UnUniversity Hospitals Lake West Medical CenterComment on above: Performed By: #### [id number] ####[facility] ([facility])[address] [place], [place] [address]Hfectfqfqve distribution width (RBC) [Ratio]14.7 %Normal 11.5-15.0UnUniversity Hospitals Lake West Medical CenterComment on above:Performed By: #### [id number] ####[facility] ([facility])[address] [place] [address] ERYTHROCYTE MEAN CORPUSCULAR HEMOGLOBIN CONCENTRATION (G/DL) BY OZTBVHQRQ16.4 g/dLLow32.0-35.0UnUniversity Hospitals Lake West Medical CenterComment on above:Performed By: #### [id number] ####[facility] ([facility])[address] [place], [place] [address]Vqwqqwtvkl (Bld) [Volume fraction]49.0 %Dzcypu15.0-55.0UnUniversity Hospitals Lake West Medical CenterComment on above:Performed By: #### [id number] ####[facility] ([facility])[address] [place], [place] [address]Wodhbpibxr (Bld) [Mass/Vol]14.9 g/dL Wztcsz71.0-17.0UnUniversity Hospitals Lake West Medical CenterComment on above:Performed By: #### [id number] ####[facility] ([facility])[address] [place] [address] Immature granulocytes (Bld) [#/Vol]0.03 10*3/uLNormal0.00-0.20UnUniversity Hospitals Lake West Medical CenterComment on above:Performed By: #### [id number] ####[facility] ([facility])[address] [place], [place] [address]Fxzemqwa granulocytes/100 WBC (Bld)0.4 %Normal0.0-1.0UnUniversity Hospitals Lake West Medical CenterComment on above: Performed By: #### [id number] ####[facility] ([facility])[address] [place], [place] [address]Gboszupgkzq (Bld) [#/Vol]1.21 10*3/uLNormal1.20-4.00 [facility] PrebleComment on above:Performed By: #### [id number] ####[facility] ([facility])[address] [place], [place] [address]Mhnywlzemuw/100 WBC (Bld)16.7 %Low20.0-45.0UnUniversity Hospitals Lake West Medical CenterComment on above: Performed By: #### [id number] ####[facility] ([facility])[address] [place] [address]FWW (RBC) [Entitic mass]29.2 suJfcmzy46.0-33.0UnUniversity Hospitals Lake West Medical CenterComment on above:Performed By: #### [id number] ####[facility] ([facility])[address] [place], [place] [address]EGM (RBC) [Entitic vol] 96.1 pMGydhpq23.0-98.0UnUniversity Hospitals Lake West Medical CenterComment on above: Performed By: #### [id number] ####[facility] ([facility])[address] [place], [place] [address]Sladpskxf (Bld) [#/Vol]0.86 10*3/uLNormal0.10-1.00UnUniversity Hospitals Lake West Medical CenterComment on above:Performed By: #### [id number] ####[facility] ([facility])[address] [place], [place] [address]Ldopwccan/100 WBC (Bld) 11.9 %Normal5.0-12.0UnUniversity Hospitals Lake West Medical CenterComment on above: Performed By: #### [id number] ####[facility] ([facility])[address] [place], [place] [address]Zevttyzwaff (Bld) [#/Vol]4.70 10*3/uLNormal1.60-7.60 [facility] PrebleComment on above:Performed By: #### [id number] ####[facility] ([facility])[address] [place], [place] [address]Hfkhushpmdt/100 WBC (Bld)64.8 %Afwqgi18.0-72.0UnUniversity Hospitals Lake West Medical CenterComment on above:Performed By: #### [id number] ####[facility] ([facility])[address] [place], [place] [address]NSSF (PER 100 WBCS) BY AUTOMATED COUNT0.0 %Tdfmfd7ArtcpdeqiiUniversity Hospitals Lake West Medical CenterComment on above:Performed By: #### [id number] ####[facility] ([facility])[address] [place] [address]LCCDYPPDG (10*3/UL) IN BLOOD AUTOMATED [id number] 10*3/dSRhcvoa326-944VmnxbdqhrfUniversity Hospitals Lake West Medical Center Comment on above:Performed By: #### [id number] ####[facility] ([facility])[address] [place] [address]CDN (Bld) [#/Vol]5.10 10*6/uLNormal4.20-5.70 [facility]bleComment on above:Performed By: #### [id number] ####[facility] ([facility])[address] [place] [address]RVE (Bld) [#/Vol]7.25 10*3/uLNormal4.00-10.60UnUniversity Hospitals Lake West Medical CenterComment on above:Performed By: #### [id number] ####[facility] ([facility])[address] [place] [address]ZHHCUBJRLlg 87-86-5643Dukgekbgr [Mass/Vol]1.8 mg/dLLow1.9-2.7 [facility]bleComment on above:Performed By: #### [id number] ####[facility] ([facility])[address] [place] [address]SNAF GLUCOSE METER UNSOLICITED RESULTSon 74-28-6903Adlbghs [Mass/Vol]246 mg/eTIyqw74-126 [facility]bleComment on above:Order Comment: Waived Testing in the ED is performed under the ED CLIA certificate #[id number].Result Comment: [id number] By: #### [id number] ####[facility] ([facility])[address] [place] [address]Hvjvcyt [Mass/Vol]204 mg/lZZpfx50-344 [facility]bleComment on above:Order Comment: Waived Testing in the ED is performed under the ED CLIA certificate #[id number].Result Comment: [email or web address] By: #### [id number] ####[facility] ([facility])[address] [place] [address]Phojmit [Mass/Vol]219 mg/vUOmbf95-274YcvekysxwyUniversity Hospitals Lake West Medical CenterComment on above:Order Comment: Waived Testing in the ED is performed under the ED CLIA certificate #[id number].Result Comment: [email or web address] Performed By: #### [id number] ####[facility] ([facility])[address] [place] [address]Hlmgcgj [Mass/Vol]163 mg/sXUsgf42-640JlmllziqmwUniversity Hospitals Lake West Medical CenterComment on above:Order Comment: Waived Testing in the ED is performed under the ED CLIA certificate #[id number].Result Comment: [email or web address] Performed By: #### [id number] ####[facility] ([facility])[address] [place] [address]wd 53-27-[address]LhezqySkwuvlbvfe of [facility] BASIC METABOLIC PANELon 64-76-1243Gpkze gap [Moles/Vol]10 mmol/LNormal7-20 [facility]bleComment on above:Performed By: #### [id number] ####[facility] ([facility])[address] [place] [address]Hzqagrx [Mass/Vol]9.5 mg/dLNormal8.6-10.3UnUniversity Hospitals Lake West Medical CenterComment on above:Performed By: #### [id number] ####[facility] ([facility])[address] [place], [place] [address]Pasnysdz [Moles/Vol]97 mmol/UPwo53-425WvwcpvgwjtUniversity Hospitals Lake West Medical CenterComment on above:Performed By: #### [id number] ####[facility] ([facility])[address] [place], [place] [address]IL7 [Moles/Vol]34 mmol/ICtaj23-93 [facility]bleComment on above:Performed By: #### [id number] ####[facility] ([facility])[address] [place] [address]Fkzzceuooe [Mass/Vol]0.87 mg/dLNormal0.70-1.30UnUniversity Hospitals Lake West Medical CenterComment on above:Performed By: #### [id number] ####[facility] ([facility])[address] [address]QBOFHTWKKB FILTRATION RATE ML/MIN/1.73 SQ M.MPLCYDXUR51.8 mL/min/1.73m*2Normal>60.0UnUniversity Hospitals Lake West Medical CenterComment on above: Result Comment: [facility]???s estimated glomerular filtration rate (eGFR) will no [...] anyone group of individuals.Performed By: #### [id number] ####[facility] ([facility])[address] [place] [address]Kemkujk [Mass/Vol]178 mg/gMPabd80-783WvvzaydhheUniversity Hospitals Lake West Medical CenterComment on above:Performed By: #### [id number] ####[facility] ([facility])[address] [place] [address]Vwdwqymwz [Moles/Vol]3.5 mmol/L Normal3.5-5.1UnUniversity Hospitals Lake West Medical CenterComment on above:Performed By: #### [id number] ####[facility] ([facility])[address] [place] [address] Sodium [Moles/Vol]137 mmol/HAkyyoi730-171GqrzowzfxnUniversity Hospitals Lake West Medical Center Comment on above:Performed By: #### [id number] ####[facility] ([facility])[address] [place], [place] [address]Vmdy nitrogen [Mass/Vol]20 mg/dLNormal7-25 [facility]bleComment on above:Performed By: #### [id number] ####[facility] ([facility])[address] [place], [place] [address]UEVR NITROGEN/CREATININE (MASS RATIO) IN SER/PLAS23.0NormalUniversKettering Health Greene MemorialComment on above:Performed By: #### [id number] ####[facility] ([facility])[address] [place] [address]UYO WITH AUTO DIFFERENTIALon 29-15-9255Rwtgyaito (Bld) [#/Vol]0.04 10*3/uLNormal0.00-0.20UnUniversity Hospitals Lake West Medical CenterComment on above:Performed By: #### [id number] ####[facility] ([facility])[address] [place], [place] [address]Qzhpizyaw/100 WBC (Bld)0.6 %Normal 0.0-1.0UnUniversity Hospitals Lake West Medical CenterComment on above:Performed By: #### [id number] ####[facility] ([facility])[address] [place] [address] Eosinophils (Bld) [#/Vol]0.22 10*3/uLNormal0.00-0.50UnUniversity Hospitals Lake West Medical CenterComment on above:Performed By: #### [id number] ####[facility] ([facility])[address] [place], [place] [address]Flltqxpadkn/100 WBC (Bld)3.1 %Normal 0.0-6.0UnUniversity Hospitals Lake West Medical CenterComment on above:Performed By: #### [id number] ####[facility] ([facility])[address] [place] [address] Erythrocyte distribution width (RBC) [Ratio]14.6 %Uywnyp53.5-15.0UnUniversity Hospitals Lake West Medical CenterComment on above:Performed By: #### [id number] ####[facility] ([facility])[address] [place], [place] [address]XMVPKARDLZV MEAN CORPUSCULAR HEMOGLOBIN CONCENTRATION (G/DL) BY UVHYEPFTL68.6 g/dLLow32.0-35.0 [facility]bleComment on above:Performed By: #### [id number] ####[facility] ([facility])[address] [place] [address]Oaiuvjkdgl (Bld) [Volume fraction]49.4 %Fyobgm46.0-55.0UnUniversity Hospitals [facility] Center Comment on above:Performed By: #### [id number] ####[facility] ([facility])[address] [place], [place] [address]Kbphbppmow (Bld) [Mass/Vol]15.1 g/lZDkhnxm32.0-17.0 [facility]bleComment on above:Performed By: #### [id number] ####[facility] ([facility])[address] [place], [place] [address]Vjfblxpa granulocytes (Bld) [#/Vol]0.04 10*3/uLNormal0.00-0.20UnUniversity Hospitals Lake West Medical CenterComment on above:Performed By: #### [id number] ####[facility] ([facility])[address] [place] [address]Toiavuvx granulocytes/100 WBC (Bld)0.6 %Normal0.0-1.0UnUniversity Hospitals Lake West Medical CenterComment on above:Performed By: #### [id number] ####[facility] ([facility])[address] [place] [address] Lymphocytes (Bld) [#/Vol]1.08 10*3/uLLow1.20-4.00UnUniversity Hospitals Lake West Medical CenterComment on above:Performed By: #### [id number] ####[facility] ([facility])[address] [place], [place] [address]Quuylrtgegi/100 WBC (Bld)15.1 %Low 20.0-45.0UnUniversity Hospitals Lake West Medical CenterComment on above:Performed By: #### [id number] ####[facility] ([facility])[address] [place], [place] [address]AZY (RBC) [Entitic mass]28.9 yoTmdspq30.0-33.0UnUniversity Hospitals [facility] Center Comment on above:Performed By: #### [id number] ####[facility] ([facility])[address] [place] [address]EWO (RBC) [Entitic vol]94.6 tQAxvmkh77.0-98.0 [facility]bleComment on above:Performed By: #### [id number] ####[facility] ([facility])[address] [place], [place] [address]Iytqfxghn (Bld) [#/Vol]0.94 10*3/uLNormal0.10-1.00UnUniversity Hospitals Lake West Medical CenterComment on above:Performed By: #### [id number] ####[facility] ([facility])[address] [place] [address]Ckrpyiptn/100 WBC (Bld)13.1 %High5.0-12.0UnUniversity Hospitals Lake West Medical CenterComment on above:Performed By: #### [id number] ####[facility] ([facility])[address] [facility] [place] [address]Bkasakrpcbg (Bld) [#/Vol]4.85 10*3/uL Normal1.60-7.60UnUniversity Hospitals Lake West Medical CenterComment on above:Performed By: #### [id number] ####[facility] ([facility])[address] [place] [address] Neutrophils/100 WBC (Bld)67.5 %Vwnuvx81.0-72.0UnUniversity Hospitals Lake West Medical CenterComment on above:Performed By: #### [id number] ####[facility] ([facility])[address] [place], [place] [address]ULTL (PER 100 WBCS) BY AUTOMATED COUNT 0.0 %Qchzhv8UzijgdydmqUniversity Hospitals Lake West Medical CenterComment on above:Performed By: #### [id number] ####[facility] ([facility])[address] [place] [address] PLATELETS (10*3/UL) IN BLOOD AUTOMATED [id number] 10*3/aDYhaktp787-373AzomaekxptUniversity Hospitals Lake West Medical CenterComment on above:Performed By: #### [id number] ####[facility] ([facility])[address] [place] [address]PBB (Bld) [#/Vol]5.22 10*6/uLNormal4.20-5.70UnUniversity Hospitals Lake West Medical CenterComment on above: Performed By: #### [id number] ####[facility] ([facility])[address] [place] [address]ODV (Bld) [#/Vol]7.17 10*3/uLNormal4.00-10.60UnUniversity Hospitals Lake West Medical CenterComment on above:Performed By: #### [id number] ####[facility] ([facility])[address] [place] [address]URTICXREJqx 08-25-2024 Magnesium [Mass/Vol]1.6 mg/dLLow1.9-2.7[facility] Comment on above:Performed By: #### [id number] ####[facility] ([facility])[address] [place] [address]UDGC GLUCOSE METER UNSOLICITED RESULTSon 08-25-2024 Glucose [Mass/Vol]154 mg/mYHgmy30-003LjjdtsujouUniversity Hospitals Lake West Medical CenterComment on above:Order Comment: Waived Testing in the ED is performed under the ED CLIA certificate #[id number].Result Comment: [id number] By: #### [id number] ####[facility] ([facility])[address] [place] [address]Mamnfto [Mass/Vol]196 mg/sHFblu15-331YldlaxjyixUniversity Hospitals Lake West Medical CenterComment on above:Order Comment: Waived Testing in the ED is performed under the ED CLIA certificate #[id number].Result Comment: [id number] By: #### [id number] ####[facility] ([facility])[address] [place] [address]Carqvom [Mass/Vol]313 mg/tCRroy70-057TllgtyxsqgUniversity Hospitals Lake West Medical CenterComment on above:Order Comment: Waived Testing in the ED is performed under the ED CLIA certificate #[id number].Result Comment: [id number] By: #### [id number] ####[facility] ([facility])[address] [place] [address]Xmeushk [Mass/Vol]164 mg/oVMcak41-819LcsqmsuauvUniversity Hospitals Lake West Medical CenterComment on above:Order Comment: Waived Testing in the ED is performed under the ED CLIA certificate #[id number].Result Comment: [id number] By: #### [id number] ####[facility] ([facility])[address] [place] [address]121ed 08-24-2024 30NormalUniTrinity Health System East CampusANTI-XA (HEPARIN LEVEL)on 08-24-2024 HEPARIN UNFRACTIONATED (U/ML) IN PPP BY CHROMOGENIC METHOD0.21 IU/mLLow0.3-0.7 [facility] PrebleComment on above:Result Comment: Rivaroxaban and Apixaban will interfere with the anti Xa assay used to monitor UFH and LMWH. Performed By: #### [id number] ####[facility] ([facility])[address] [place], [place] [address]I-WGRD NATRIURETIC PEPTIDEon 99-14-2415Fifvdthsvnp peptide B (Bld) [Mass/Vol]143 pg/mLHigh0-100UnUniversity Hospitals Lake West Medical CenterComment on above:Performed By: #### [id number] ####[facility] ([facility])[address] [place], [place] [address]JKETM METABOLIC PANELon 13-55-8042Xfffc gap [Moles/Vol]11 mmol/LNormal7-20UnUniversity Hospitals Lake West Medical CenterComment on above:Performed By: #### [id number] ####[facility] ([facility])[address] [place] [address] Calcium [Mass/Vol]9.7 mg/dLNormal8.6-10.3UnUniversity Hospitals Lake West Medical Center Comment on above:Performed By: #### [id number] ####[facility] ([facility])[address] [place] [address]Oasadnbf [Moles/Vol]98 mmol/RUxzeqm18-557HfvsukrngtUniversity Hospitals Lake West Medical CenterComment on above:Performed By: #### [id number] ####[facility] ([facility])[address] [place] [address]AZ8 [Moles/Vol]33 mmol/L Oqwp36-62RbwdrvxxdxUniversity Hospitals Lake West Medical CenterComment on above:Performed By: #### [id number] ####[facility] ([facility])[address] [place] [address]Uxlfuebzkm [Mass/Vol]0.93 mg/dLNormal0.70-1.30UnUniversity Hospitals Lake West Medical CenterComment on above:Performed By: #### [id number] ####[facility] ([facility])[address] [place] [address]EJSFBOKTRE FILTRATION RATE ML/MIN/1.73 SQ M.FVCQKDXWC63.1 mL/min/1.73m*2Normal>60.0UnUniversity Hospitals Lake West Medical CenterComment on above: Result Comment: [facility]???s estimated glomerular filtration rate (eGFR) will no [...] anyone group of individuals.Performed By: #### [id number] ####[facility] ([facility])[address] [place] [address]Gqprejn [Mass/Vol]166 mg/vARmvh50-656YjjmdoaxkbUniversity Hospitals Lake West Medical CenterComment on above:Performed By: #### [id number] ####[facility] ([facility])[address] [place] [address]Eqvgghfql [Moles/Vol]3.8 mmol/L Normal3.5-5.1UnUniversity Hospitals Lake West Medical CenterComment on above:Performed By: #### [id number] ####[facility] (BEAKER)[address] [place] [address] Sodium [Moles/Vol]138 mmol/WDkpyoj026-473QitxjzcphcUniversity Hospitals Lake West Medical Center Comment on above:Performed By: #### [id number] ####[facility] ([facility])[address] [place], [place] [address]Ztxh nitrogen [Mass/Vol]23 mg/dLNormal7-25 [facility]bleComment on above:Performed By: #### [id number] ####[facility] ([facility])[address] [place], [place] [address]IDXQ NITROGEN/CREATININE (MASS RATIO) IN SER/PLAS24.7NormalUniversKettering Health Greene MemorialComment on above:Performed By: #### [id number] ####[facility] ([facility])[address] [place], [place] [address]Pvvsg gap [Moles/Vol]10 mmol/LNormal 7-20UnUniversity Hospitals Lake West Medical CenterComment on above:Performed By: #### [id number] ####[facility] (BE[facility]ER)[address] [place], [place] [address]Ylvglfr [Mass/Vol]9.4 mg/dLNormal8.6-10.3UnUniversity Hospitals Lake West Medical CenterComment on above:Performed By: #### [id number] ####[facility] (BE[facility]ER)[address] [place], [place] [address]Zehracyl [Moles/Vol]98 mmol/PWrsoad95-679WdpgmnikhcUniversity Hospitals Lake West Medical CenterComment on above:Performed By: #### [id number] ####[facility] (BE[facility]ER)[address] [place], [place] [address]OE1 [Moles/Vol]33 mmol/LXpuf84-44 [facility]bleComment on above:Performed By: #### [id number] ####[facility] ([facility]ER)[address] [place], [place] [address]Biqvvzgqpd [Mass/Vol]0.88 mg/dLNormal0.70-1.30UnUniversity Hospitals Lake West Medical CenterComment on above:Performed By: #### [id number] ####[facility] ([facility])[address] [place] [address]YUGSGCAUSS FILTRATION RATE ML/MIN/1.73 SQ M.EFIQGMEMW35.4 mL/min/1.73m*2Normal>60.0UnUniversity Hospitals Lake West Medical CenterComment on above: Result Comment: The [facility]???s estimated glomerular filtration rate (eGFR) will no [...] anyone group of individuals.Performed By: #### [id number] ####[facility] ([facility])[address] [place], [place] [address]Bwtpyke [Mass/Vol]132 mg/nHLvzg31-353FerihcxvywUniversity Hospitals Lake West Medical CenterComment on above:Performed By: #### [id number] ####[facility] ([facility])[address] [place], [place] [address]Ivducjnzh [Moles/Vol]2.9 mmol/L Invalid Interpretation Code3.5-5.1UnUniversity Hospitals Lake West Medical CenterComment on above:Performed By: #### [id number] ####[facility] ([facility])[address] [place], [place] [address]Tywokk [Moles/Vol]138 mmol/QZrwpbu067-361QodcssrwbqUniversity Hospitals Lake West Medical CenterComment on above:Performed By: #### [id number] ####[facility] ([facility])[address] [place], [place] [address]Hedb nitrogen [Mass/Vol]24 mg/dLNormal 7-25UnUniversity Hospitals Lake West Medical CenterComment on above:Performed By: #### [id number] ####[facility] ([facility]ER)[address] [place] [address]PYMQ NITROGEN/CREATININE (MASS RATIO) IN SER/PLAS27.3NormalUniversKettering Health Greene MemorialComment on above:Performed By: #### [id number] ####[facility] ([facility])[address] [place] [address]VAC WITH AUTO DIFFERENTIALon 17-41-2276Jenoxpmyt (Bld) [#/Vol]0.06 10*3/uLNormal0.00-0.20UnUniversity Hospitals Lake West Medical CenterComment on above:Performed By: #### [id number] ####[facility] ([facility])[address] [place], [place] [address]Ktjbzagix/100 WBC (Bld)0.8 %Normal 0.0-1.0UnUniversity Hospitals Lake West Medical CenterComment on above:Performed By: #### [id number] ####[facility] ([facility])[address] [place] [address] Eosinophils (Bld) [#/Vol]0.46 10*3/uLNormal0.00-0.50UnUniversity Hospitals Lake West Medical CenterComment on above:Performed By: #### [id number] ####[facility] ([facility])[address] [place], [place] [address]Qnpkbivbapb/100 WBC (Bld)5.9 %Normal 0.0-6.0UnUniversity Hospitals Lake West Medical CenterComment on above:Performed By: #### [id number] ####[facility] ([facility])[address] [place] [address] Erythrocyte distribution width (RBC) [Ratio]14.7 %Quvcwk25.5-15.0UnUniversity Hospitals Lake West Medical CenterComment on above:Performed By: #### [id number] ####[facility] ([facility])[address] [place], [place] [address]EZKLDUTHDZS MEAN CORPUSCULAR HEMOGLOBIN CONCENTRATION (G/DL) BY QVCXSRHJT77.3 g/dLLow32.0-35.0 [facility]bleComment on above:Performed By: #### [id number] ####[facility] ([facility])[address] [place], [place] [address]Ahlmirvnte (Bld) [Volume fraction]50.8 %Eplcgg26.0-55.0[facility] Comment on above:Performed By: #### [id number] ####[facility] ([facility])[address] [place] [address]Ylquutdazc (Bld) [Mass/Vol]15.9 g/xOFrwcyc35.0-17.0 [facility]bleComment on above:Performed By: #### [id number] ####[facility] ([facility])[address] [place], [place] [address]Rcnsfwlr granulocytes (Bld) [#/Vol]0.04 10*3/uLNormal0.00-0.20UnUniversity Hospitals Lake West Medical CenterComment on above:Performed By: #### [id number] ####[facility] ([facility])[address] [place], [place] [address]Sthhbqfq granulocytes/100 WBC (Bld)0.5 %Normal0.0-1.0UnUniversity Hospitals Lake West Medical CenterComment on above:Performed By: #### [id number] ####[facility] ([facility])[address] [place] [address] Lymphocytes (Bld) [#/Vol]1.23 10*3/uLNormal1.20-4.00UnUniversity Hospitals Lake West Medical CenterComment on above:Performed By: #### [id number] ####[facility] ([facility])[address] [place], [place] [address]Jeygnkiokxw/100 WBC (Bld)15.8 %Low 20.0-45.0UnUniversity Hospitals Lake West Medical CenterComment on above:Performed By: #### [id number] ####[facility] ([facility])[address] [place], [place] [address]BPL (RBC) [Entitic mass]29.1 jcGohusk78.0-33.0UnUniversity Hospitals Lake West Medical Center Comment on above:Performed By: #### [id number] ####[facility] ([facility])[address] [place] [place] [address]UWM (RBC) [Entitic vol]92.9 uGTkfqhy46.0-98.0 [facility]bleComment on above:Performed By: #### [id number] ####[facility] ([facility])[address] [place] [address]Svlsevuzp (Bld) [#/Vol]0.96 10*3/uLNormal0.10-1.00UnUniversity Hospitals Lake West Medical CenterComment on above:Performed By: #### [id number] ####[facility] ([facility])[address] [place], [place] [address]Nyerquzyb/100 WBC (Bld)12.4 %High5.0-12.0UnUniversity Hospitals Lake West Medical CenterComment on above:Performed By: #### [id number] ####[facility] ([facility])[address] [place], [place] [address]Hkgivvniyyw (Bld) [#/Vol]5.02 10*3/uL Normal1.60-7.60UnUniversity Hospitals Lake West Medical CenterComment on above:Performed By: #### [id number] ####[facility] ([facility])[address] [place] [address] Neutrophils/100 WBC (Bld)64.6 %Euqygm03.0-72.0UnUniversity Hospitals Lake West Medical CenterComment on above:Performed By: #### [id number] ####[facility] ([facility])[address] [place], [place] [address]ZSVW (PER 100 WBCS) BY AUTOMATED COUNT 0.0 %Crfdzz2EidrmdtcpxUniversity Hospitals Lake West Medical CenterComment on above:Performed By: #### [id number] ####[facility] ([facility])[address] [place] [address] PLATELETS (10*3/UL) IN BLOOD AUTOMATED [id number] 10*3/lUXllxdc588-755KvcchruzvbUniversity Hospitals Lake West Medical CenterComment on above:Performed By: #### [id number] ####[facility] ([facility])[address] [place] [address]EPE (Bld) [#/Vol]5.47 10*6/uLNormal4.20-5.70UnUniversity Hospitals Lake West Medical CenterComment on above: Performed By: #### [id number] ####[facility] ([facility])[address] [place] [address]ZWW (Bld) [#/Vol]7.77 10*3/uLNormal4.00-10.60UnUniversity Hospitals Lake West Medical CenterComment on above:Performed By: #### [id number] ####[facility] ([facility])[address] [place] [address]VPFAWGYob 08-24-2024 CONSULTNormalUniversKettering Health Greene MemorialCT HEAD WO IV CONTRASTon [id number] HEAD WO IV CONTRASTInvalid Interpretation CodeUnUniversity Hospitals Lake West Medical CenterCTA CHEST W IV CONTRASTon [id number] CHEST W IV CONTRASTNormal [facility]bleMAGNESIUMon 08-00-8072Hunrgfgkq [Mass/Vol]1.7 mg/dLLow1.9-2.7UnUniversity Hospitals Lake West Medical CenterComment on above:Performed By: #### [id number] ####[facility] ([facility])[address] [place] [address] Magnesium [Mass/Vol]1.4 mg/dLLow1.9-2.7UnUniversity Hospitals Lake West Medical Center Comment on above:Performed By: #### [id number] ####[facility] ([facility])[address] [place] [address]KTCVYICVzd 75-03-2424RGBXQTUMYfvhvjUyuiyykstv of [place] Medical CenterNURSNOTENormalUniversKettering Health Greene MemorialPHOSPHORUS on 54-04-0342Fyxatslws [Mass/Vol]3.4 mg/dLNormal2.5-5.0UnUniversity Hospitals Lake West Medical CenterComment on above:Performed By: #### [id number] ####[facility] [place], [place] [address]LJCB GLUCOSE METER UNSOLICITED RESULTS on 75-98-3709Kkjbjng [Mass/Vol]182 mg/zRElhl72-073XjimatkewdUniversity Hospitals Lake West Medical CenterComment on above:Order Comment: Waived Testing in the ED is performed under the ED CLIA certificate #[id number].Result Comment: drockolPerformed By: #### [id number] ####[facility] ([facility])[address] [place] [address] Glucose [Mass/Vol]166 mg/kIBtfd94-238DbdtywfqyjUniversity Hospitals Lake West Medical CenterComment on above:Order Comment: Waived Testing in the ED is performed under the ED CLIA certificate #[id number].Result Comment: sbelcadPerformed By: #### [id number] ####[facility] ([facility])[address] [place], [place] [address]Vzepsvv [Mass/Vol]150 mg/yVEoha46-035BggckksncwUniversity Hospitals Lake West Medical CenterComment on above:Order Comment: Waived Testing in the ED is performed under the ED CLIA certificate #[id number].Result Comment: bescobePerformed By: #### [id number] ####[facility] ([facility])[address] [place], [place] [address]Ojtdwrt [Mass/Vol]136 mg/kGKbdu48-189UfvuxrrhovUniversity Hospitals Lake West Medical CenterComment on above:Order Comment: Waived Testing in the ED is performed under the ED CLIA certificate #[id number].Result Comment: [email or web address] Value NotedPerformed By: #### [id number] ####[facility] (BEAKER)[address] [place] [address] BASIC METABOLIC PANELon 03-36-8029Eeytl gap [Moles/Vol]10 mmol/LNormal7-20 [facility]bleComment on above:Performed By: #### [id number] ####[facility] [place], [place] [address]Mnfvdxx [Mass/Vol]9.8 mg/dLNormal8.6-10.3UnUniversity Hospitals Lake West Medical CenterComment on above:Performed By: #### [id number] ####[facility] ([facility])[address] [address]Kqfzptuy [Moles/Vol]99 mmol/CBneyfn88-617BawxvvovnlUniversity Hospitals Lake West Medical CenterComment on above:Performed By: #### [id number] ####[facility] ([facility])[address] [place] [address]OJ1 [Moles/Vol]33 mmol/IYizi27-94 [facility]bleComment on above:Performed By: #### [id number] ####[facility] ([facility])[address] [address]Bkmysqttwy [Mass/Vol]0.94 mg/dLNormal0.70-1.30UnUniversity Hospitals Lake West Medical CenterComment on above:Performed By: #### [id number] ####[facility] ([facility])[address] [place], [place] [address]KSAGNZLPCT FILTRATION RATE ML/MIN/1.73 SQ M.TTKMBCHIW10.0 mL/min/1.73m*2Normal>60.0UnUniversity Hospitals Lake West Medical CenterComment on above: Result Comment: The [facility]???s estimated glomerular filtration rate (eGFR) will no [...] anyone group of individuals.Performed By: #### [id number] ####[facility] ([facility])[address] [address]Ffynzku [Mass/Vol]274 mg/nVCuzp96-122GkbzfntcsyUniversity Hospitals Lake West Medical CenterComment on above:Performed By: #### [id number] ####[facility] ([facility])[address] [place] [address]Djuxcelfn [Moles/Vol]3.8 mmol/L Normal3.5-5.1UnUniversity Hospitals Lake West Medical CenterComment on above:Performed By: #### [id number] ####[facility] ([facility])[address] [place] [address] Sodium [Moles/Vol]138 mmol/SPrhdzz790-473OoajnqpitfUniversity Hospitals Lake West Medical Center Comment on above:Performed By: #### [id number] ####[facility] ([facility])[address] [place], [place] [address]Istk nitrogen [Mass/Vol]31 mg/dLHigh7-25UnUniversity Hospitals Lake West Medical CenterComment on above:Performed By: #### [id number] ####[facility] ([facility])[address] [place], [place] [address]ZMID NITROGEN/CREATININE (MASS RATIO) IN SER/PLAS33.0NormalUniversKettering Health Greene MemorialComment on above:Performed By: #### [id number] ####[facility] ([facility])[address] [place], [place] [address]JKN WITH AUTO DIFFERENTIALon 62-99-8849Vtqgbnjkb (Bld) [#/Vol]0.06 10*3/uLNormal0.00-0.20UnUniversity Hospitals Lake West Medical CenterComment on above:Performed By: #### [id number] ####[facility] ([facility])[address] [place], [place] [address]Zstbceoqh/100 WBC (Bld)0.9 %Normal0.0-1.0UnUniversity Hospitals Lake West Medical CenterComment on above:Performed By: #### [id number] ####[facility] ([facility])[address] [place], [place] [address]Trxeujqcwtm (Bld) [#/Vol]0.34 10*3/uL Normal0.00-0.50UnUniversity Hospitals Lake West Medical CenterComment on above:Performed By: #### [id number] ####[facility] ([facility])[address] [place] [address] Eosinophils/100 WBC (Bld)4.8 %Normal0.0-6.0UnUniversity Hospitals Lake [facility] Medical Center Comment on above:Performed By: #### [id number] ####[facility] ([facility] [place], [place] [address]Zouocixuozt distribution width (RBC) [Ratio]14.7 % Dyqhlp54.5-15.0UnUniversity Hospitals Lake West Medical CenterComment on above:Performed By: #### [id number] ####[facility] ([facility])[address] [place] [address] ERYTHROCYTE MEAN CORPUSCULAR HEMOGLOBIN CONCENTRATION (G/DL) BY WHWSETPRF55.8 g/dLLow32.0-35.0UnUniversity Hospitals Lake West Medical CenterComment on above:Performed By: #### [id number] ####[facility] ([facility])[address] [place], [place] [address]Bgueyushmr (Bld) [Volume fraction]52.5 %Ajtrcc42.0-55.0UnUniversity Hospitals Lake West Medical CenterComment on above:Performed By: #### [id number] ####[facility] ([facility])[address] [place], [place] [address]Spiwoszfuk (Bld) [Mass/Vol]16.7 g/dL Wynjmw32.0-17.0UnUniversity Hospitals Lake West Medical CenterComment on above:Performed By: #### [id number] ####[facility] ([facility])[address] [place] [address] Immature granulocytes (Bld) [#/Vol]0.05 10*3/uLNormal0.00-0.20UnUniversity Hospitals Lake West Medical CenterComment on above:Performed By: #### [id number] ####[facility] (BEAKER)[address] [place], [place] [address]Adncprhj granulocytes/100 WBC (Bld)0.7 %Normal0.0-1.0UnUniversity Hospitals Lake West Medical CenterComment on above: Performed By: #### [id number] ####[facility] (BE[facility]ER)[address] [place], [place] [address]Cdnhhewxejc (Bld) [#/Vol]1.15 10*3/uLLow1.20-4.00UnUniversity Hospitals Lake West Medical CenterComment on above:Performed By: #### [id number] ####[facility] (BE[facility]ER)[address] [place], [place] [address]Xelqgmqhpaq/100 WBC (Bld) 16.4 %Low20.0-45.0UnUniversity Hospitals Lake West Medical CenterComment on above:Performed By: #### [id number] ####[facility] (BEAKER)[address] [place], [place] [address]PWD (RBC) [Entitic mass]29.0 fbRyygmn47.0-33.0UnUniversity Hospitals Lake West Medical CenterComment on above:Performed By: #### [id number] ####[facility] (BEAKER)[address] [place], [place] [address]FJF (RBC) [Entitic vol]91.1 fLNormal 82.0-98.0UnUniversity Hospitals Lake West Medical CenterComment on above:Performed By: #### [id number] ####[facility] (BE[facility]ER)[address] [place] [address] Monocytes (Bld) [#/Vol]0.85 10*3/uLNormal0.10-1.00UnUniversity Hospitals Lake West Medical CenterComment on above:Performed By: #### [id number] ####[facility] (BE[facility]ER)[address] [facility] [place] [address]Awweipzke/100 WBC (Bld)12.1 %High 5.0-12.0UnUniversity Hospitals Lake West Medical CenterComment on above:Performed By: #### [id number] ####[facility] (BE[facility]ER)[address] [place] [address] Neutrophils (Bld) [#/Vol]4.58 10*3/uLNormal1.60-7.60UnUniversity Hospitals Lake West Medical CenterComment on above:Performed By: #### [id number] ####[facility] ([facility]ER)[address] [facility] [place] [place] [address]Edkgvdtbtas/100 WBC (Bld)65.1 %Normal 40.0-72.0UnUniversity Hospitals Lake West Medical CenterComment on above:Performed By: #### [id number] ####[facility] ([facility])[address] [address]IANZ (PER 100 WBCS) BY AUTOMATED COUNT0.0 %Mcyidp6OtylcnhyabUniversity Hospitals Lake West Medical Center Comment on above:Performed By: #### [id number] ####[facility] ([facility])[address] [place] [address]GBQMUAUUA (10*3/UL) IN BLOOD AUTOMATED [id number] 10*3/oIAstlmm769-233MacpfsuporUniversity Hospitals Lake West Medical CenterComment on above: Performed By: #### [id number] ####[facility] ([facility])[address] [place] [address]CXL (Bld) [#/Vol]5.76 10*6/uLHigh4.20-5.70UnUniversity Hospitals Lake West Medical CenterComment on above:Performed By: #### [id number] ####[facility] ([facility])[address] [place] [address]GFF (Bld) [#/Vol]7.03 10*3/uLNormal4.00-10.60UnUniversity Hospitals Lake West Medical CenterComment on above: Performed By: #### [id number] ####[facility] ([facility])[address] [place] [address]XRLBXJUyo 67-93-6656FWUGUPRJpaeunClycwxncbh of [place] Medical CenterLIPID PANELon 41-21-3688OWHJ/HDL7.8 mg/dLNormalUniversKettering Health Greene MemorialComment on above:Performed By: #### [id number] ####[facility] ([facility])[address] [place] [address]Ewnmymblpsk [Mass/Vol]195 mg/dLNormal 120-200UnUniversity Hospitals Lake West Medical CenterComment on above:Performed By: #### [id number] ####[facility] ([facility])[address] [place] [address]Lzegmhbpb [Mass/Vol]177 mg/pCPlen18-365XhbmupqbrdUniversity Hospitals Lake West Medical CenterComment on above:Result Comment: TRIGLYCERIDE REFERENCE RANGE:20 YEARS AND OLDER CARDIOVASCULAR RISKLESS THAN 150 mg/dL LOW [id number] TO 199 mg/dL BORDERLINE XJUQ046 mg/dL AND GREATER HIGH RISKPerformed By: #### [id number] ####[facility] ([facility])[address] [place] [address]Gkzaxgdwr [Mass/Vol]135 mg/dL Normal0-160UnUniversity Hospitals Lake West Medical CenterComment on above:Performed By: #### [id number] ####[facility] ([facility])[address] [place] [address] Magnesium [Mass/Vol]25 mg/cYYndxbf69-98ZlfptytubsUniversity Hospitals Lake West Medical Center Comment on above:Performed By: #### [id number] ####[facility] ([facility])[address] [place], [place] [address]QYM HDL CHOL. (LDL+VLDL)170NormalUniversKettering Health Greene MemorialComment on above:Performed By: #### [id number] ####[facility] ([facility])[address] [place], [place] [address]ZVXTG VLDL-C35 mg/dLNormal0-40 [facility] PrebleComment on above:Performed By: #### [id number] ####[facility] ([facility])[address] [place], [place] [address]RUEI GLUCOSE METER UNSOLICITED RESULTSon [id number] [Mass/Vol]169 mg/mZZsan19-434 [facility] PrebleComment on above:Order Comment: Waived Testing in the ED is performed under the ED CLIA certificate #[id number].Result Comment: agoettiPerformed By: #### [id number] ####[facility] ([facility])[address] [place], [place] [address]Itedrsr [Mass/Vol]183 mg/eEPsom38-245LmyksfhpltUniversity Hospitals Lake West Medical CenterComment on above:Order Comment: Waived Testing in the ED is performed under the ED CLIA certificate #[id number].Result Comment: [email or web address] Performed By: #### [id number] ####[facility] ([facility] CENTER)[address] [place] [address]Zpikkai [Mass/Vol]283 mg/iHAidy28-573LycdnlnqfxUniversity Hospitals Lake West Medical CenterComment on above:Order Comment: Waived Testing in the ED is performed under the ED CLIA certificate #[id number].Result Comment: [email or web address] Performed By: #### [id number] ####[facility] ([facility])[address] [place] [address]Qtvujgk [Mass/Vol]258 mg/vBTvll87-351YyydxylenmUniversity Hospitals Lake West Medical CenterComment on above:Order Comment: Waived Testing in the ED is performed under the ED CLIA certificate #[id number].Result Comment: [email or web address] Performed By: #### [id number] ####[facility] ([facility])[address] [place] [address]hk [id number] of [facility] ANTI-XA (HEPARIN LEVEL)on 94-28-6102WLITCKN UNFRACTIONATED (U/ML) IN PPP BY CHROMOGENIC METHOD0.31 IU/mLNormal0.3-0.7UnUniversity Hospitals Lake West Medical Center Comment on above:Result Comment: Rivaroxaban and Apixaban will interfere with the anti Xa assay used to monitor UFH and LMWH.Performed By: #### [id number] ####[facility] ([facility])[address] [place], [place] [address]OEHXN METABOLIC PANELon 15-89-3763Onrym gap [Moles/Vol]10 mmol/LNormal7-20UnUniversity Hospitals Lake West Medical CenterComment on above:Performed By: #### [id number] ####[facility] ([facility])[address] [place] [address]Gvexkho [Mass/Vol]9.6 mg/dLNormal 8.6-10.3UnUniversity Hospitals Lake West Medical CenterComment on above:Performed By: #### [id number] ####[facility] ([facility])[address] [place] [address]Ttskxogm [Moles/Vol]102 mmol/PFeheiw34-181OqkbwuzapkUniversity Hospitals Lake West Medical CenterComment on above:Performed By: #### [id number] ####[facility] ([facility])[address] [place] [address]JG3 [Moles/Vol]32 mmol/JQfnt40-81CxoogptzihUniversity Hospitals Lake West Medical CenterComment on above:Performed By: #### [id number] ####[facility] ([facility])[address] [place] [address]Yneftjgusg [Mass/Vol]1.01 mg/dLNormal 0.70-1.30UnUniversity Hospitals Lake West Medical CenterComment on above:Performed By: #### [id number] ####[facility] ([facility])[address] [place] [address]LSTMVYHWAL FILTRATION RATE ML/MIN/1.73 SQ M.WQZWLLREW14.5 mL/min/1.73m*2Normal>60.0 [facility] PrebleComment on above:Result Comment: [facility]???s estimated glomerular filtration rate (eG FR) will [...] group of individuals. Performed By: #### [id number] ####[facility] ([facility])[address] [place] [address]Jyqbwtw [Mass/Vol]263 mg/uLTqsi63-017NmepbvdoepUniversity Hospitals Lake West Medical CenterComment on above:Performed By: #### [id number] ####[facility] ([facility])[address] [place] [address]Botqnmlfb [Moles/Vol]3.7 mmol/LNormal 3.5-5.1UnUniversity Hospitals Lake West Medical CenterComment on above:Performed By: #### [id number] ####[facility] ([facility])[address] [place] [address]Sjdzyp [Moles/Vol]140 mmol/NHknjst748-985XbpxrptqneUniversity Hospitals Lake West Medical CenterComment on above:Performed By: #### [id number] ####[facility] ([facility])[address] [place] [address]Yfwt nitrogen [Mass/Vol]33 mg/dLHigh7-25UnUniversity Hospitals Lake West Medical CenterComment on above:Performed By: #### [id number] ####[facility] ([facility])[address] [place] [address]LLMO NITROGEN/CREATININE (MASS RATIO) IN SER/PLAS32.7NormalUniversKettering Health Greene MemorialComment on above: Performed By: #### [id number] ####[facility] ([facility])[address] [place] [address]HNG WITH AUTO DIFFERENTIALon 83-34-7425Cxdhuaciw (Bld) [#/Vol]0.05 10*3/uLNormal0.00-0.20UnUniversity Hospitals Lake West Medical CenterComment on above: Performed By: #### [id number] ####[facility] ([facility])[address] [place] [address]Unaulblyq/100 WBC (Bld)0.5 %Normal0.0-1.0UnUniversity Hospitals Lake West Medical CenterComment on above:Performed By: #### [id number] ####[facility] ([facility])[address] [place] [address]Jgxaauomzoq (Bld) [#/Vol]0.36 10*3/uL Normal0.00-0.50UnUniversity Hospitals Lake West Medical CenterComment on above:Performed By: #### [id number] ####[facility] ([facility])[address] [place] [address] Eosinophils/100 WBC (Bld)3.9 %Normal0.0-6.0UnUniversity Hospitals Lake West Medical Center Comment on above:Performed By: #### [id number] ####[facility] ([facility])[address] [place], [place] [address]Dqnskktqmvv distribution width (RBC) [Ratio]14.7 % Dunrxx53.5-15.0UnUniversity Hospitals Lake West Medical CenterComment on above:Performed By: #### [id number] ####[facility] ([facility])[address] [place] [address] ERYTHROCYTE MEAN CORPUSCULAR HEMOGLOBIN CONCENTRATION (G/DL) BY JKDINBCSF05.8 g/dLLow32.0-35.0UnUniversity Hospitals Lake West Medical CenterComment on above:Performed By: #### [id number] ####[facility] ([facility])[address] [place], [place] [address]Ewvsnlidkc (Bld) [Volume fraction]52.9 %Lwusiq77.0-55.0UnUniversity Hospitals Lake West Medical CenterComment on above:Performed By: #### [id number] ####[facility] ([facility])[address] [place], [place] [address]Orvlnreswk (Bld) [Mass/Vol]16.3 g/dL Ackkde99.0-17.0UnUniversity Hospitals Lake West Medical CenterComment on above:Performed By: #### [id number] ####[facility] ([facility])[address] [place] [address] Immature granulocytes (Bld) [#/Vol]0.07 10*3/uLNormal0.00-0.20UnUniversity Hospitals Lake West Medical CenterComment on above:Performed By: #### [id number] ####[facility] ([facility])[address] [place], [place] [address]Bkatseks granulocytes/100 WBC (Bld)0.7 %Normal0.0-1.0UnUniversity Hospitals Lake West Medical CenterComment on above: Performed By: #### [id number] ####[facility] ([facility])[address] [place], [place] [address]Iyixwzamxqh (Bld) [#/Vol]1.16 10*3/uLLow1.20-4.00UnUniversity Hospitals Lake West Medical CenterComment on above:Performed By: #### [id number] ####[facility] ([facility])[address] [place], [place] [address]Olsnxrzdppd/100 WBC (Bld) 12.4 %Low20.0-45.0UnUniversity Hospitals Lake West Medical CenterComment on above:Performed By: #### [id number] ####[facility] ([facility])[address] [place], [place] [address]KWX (RBC) [Entitic mass]28.8 wvLqkyzn70.0-33.0UnUniversity Hospitals Lake West Medical CenterComment on above:Performed By: #### [id number] ####[facility] ([facility])[address] [place], [place] [address]TQJ (RBC) [Entitic vol]93.5 fLNormal 82.0-98.0UnUniversity Hospitals Lake West Medical CenterComment on above:Performed By: #### [id number] ####[facility] ([facility])[address] [place] [address] Monocytes (Bld) [#/Vol]1.21 10*3/uLHigh0.10-1.00UnUniversity Hospitals Lake West Medical CenterComment on above:Performed By: #### [id number] ####[facility] ([facility])[address] [place], [place] [address]Xckvaylio/100 WBC (Bld)12.9 %High 5.0-12.0UnUniversity Hospitals Lake West Medical CenterComment on above:Performed By: #### [id number] ####[facility] ([facility])[address] [place] [address] Neutrophils (Bld) [#/Vol]6.50 10*3/uLNormal1.60-7.60UnUniversity Hospitals Lake West Medical CenterComment on above:Performed By: #### [id number] ####[facility] ([facility])[address] [place], [place] [address]Ifessbtcrjg/100 WBC (Bld)69.6 %Normal 40.0-72.0UnUniversity Hospitals Lake West Medical CenterComment on above:Performed By: #### [id number] ####[facility] ([facility])[address] [address]VBYF (PER 100 WBCS) BY AUTOMATED COUNT0.0 %Amflym5LyvbgxzajfUniversity Hospitals Lake West Medical Center Comment on above:Performed By: #### [id number] ####[facility] ([facility])[address] [address]MIVFINXPC (10*3/UL) IN BLOOD AUTOMATED YGFDZ282 10*3/wWWdqeqs877-384RohkwmdbpvUniversity Hospitals Lake West Medical CenterComment on above: Performed By: #### [id number] ####[facility] ([facility])[address] [address]IVQ (Bld) [#/Vol]5.66 10*6/uLNormal4.20-5.70UnUniversity Hospitals Lake West Medical CenterComment on above:Performed By: #### [id number] ####[facility] ([facility])[address] [address]RMI (Bld) [#/Vol]9.35 10*3/uLNormal4.00-10.60UnUniversity Hospitals Lake West Medical CenterComment on above: Performed By: #### [id number] ####[facility] ([facility])[address] [address]OYMS GLUCOSE METER UNSOLICITED RESULTSon 55-76-4865Wjuzllf [Mass/Vol]256 mg/pTVsni62-054IzwesrjdpbUniversity Hospitals Lake West Medical CenterComment on above:Order Comment: Waived Testing in the ED is performed under the ED CLIA certificate #[id number].Result Comment: acjalnq2Tskjacmmn By: #### [id number] ####[facility] ([facility])[address] [address]Wzgdblg [Mass/Vol]277 mg/zVCprb22-886ChjxhdirsvUniversity Hospitals Lake West Medical CenterComment on above:Order Comment: Waived Testing in the ED is performed under the ED CLIA certificate #[id number].Result Comment: kkidznt3Qzleyqihd By: #### [id number] ####[facility] ([facility])[address] [place], [place] [address]GRML-QT (HEPARIN LEVEL)on 26-58-8110WXLPLDS UNFRACTIONATED (U/ML) IN PPP BY CHROMOGENIC METHOD 0.30 IU/mLNormal0.3-0.7UnUniversity Hospitals Lake West Medical CenterComment on above: Result Comment: Rivaroxaban and Apixaban will interfere with the anti Xa assay used to monitor UFH and LMWH.Performed By: #### [id number] ####[facility] ([facility])[address] [place], [place] [address]YZWRJEBI BLOOD GAS WITH CO-OXIMETRYon 91-79-3967Kvsc excess Calc (Bld) [Moles/Vol]6.7 mmol/LHigh-2.0-3.0UnUniversity Hospitals Lake West Medical CenterComment on above:Performed By: #### [id number] ####[facility] RESP[facility] [id number] [place] [address] [place] CARBOXYHEMOGLOBIN/HEMOGLOBIN TOTAL % IN BLOOD2.0 %Normal0.0-3.0UnUniversity Hospitals Lake West Medical CenterComment on above:Performed By: #### [id number] ####[facility] [id number] [place] [address] USACO2 (Bld) [Partial pressure]43 mm[Hg]Yreyrg45-92RlpginpsvrUniversity Hospitals Lake West Medical CenterComment on above:Performed By: #### [id number] ####[facility] RESP[facility] [id number] [place] [address] USADEOXYGENATED HEMOGLOBIN IN BLOOD4.9 %Normal1-5UnUniversity Hospitals Lake West Medical CenterComment on above:Performed By: #### [id number] ####[facility] RESPIRATORY [id number] [place] [address] OOJUGH530 %Normal [facility] PrebleComment on above:Performed By: #### [id number] ####[facility] RESPIR[facility] [id number] [place] [address] USAHCO3 (Bld) [Moles/Vol]31.3 mmol/LHigh21.0-28.0UnUniversity Hospitals Lake West Medical CenterComment on above:Performed By: #### [id number] ####[facility] RESPIRATORY [id number] [place] [address] USAHemoglobin (Bld) [Mass/Vol]16.5 g/dENgzuzo62.7-17.4 [facility]bleComment on above:Performed By: #### [id number] ####[facility] RESPIRAT[facility] [id number] [place] [address] [place] METHEMOGLOBIN/100 IN BLOOD0.7 %Normal0.0-1.5UnUniversity Hospitals Lake West Medical Center Comment on above:Performed By: #### [id number] ####[facility] RESPIRATORY [id number] [place] [address] USAOxygen (Bld) [Partial pressure]68 mm[Hg]Low 83-100UnUniversity Hospitals Lake West Medical CenterComment on above:Performed By: #### [id number] ####[facility] RES[facility] [id number] [facility] [place] [address] USAOXYGEN SATURATION (%) IN ARTERIAL BLOOD95.0 %Mahyxm68.0-98.0UnUniversity Hospitals Lake West Medical CenterComment on above:Performed By: #### [id number] ####[facility] RESPIRATORY [id number] [facility] [place] [address] USAOXYGENATED HEMOGLOBIN IN BLOOD92.4 %Zsdcmv05.0-95.0UnUniversity Hospitals Lake West Medical CenterComment on above:Performed By: #### [id number] ####[facility] RESPIRATORY [id number] [facility] [place] [address] USApH (Bld)7.47 [pH]High7.35-7.45UnUniversity Hospitals Lake West Medical CenterComment on above:Performed By: #### [id number] ####[facility] RESPIRATORY [id number] [place] [address] USASOURCE OF OXYGENBi-PAPNormalUniversity Adena Health SystemComment on above:Performed By: #### [id number] ####[facility] RESPIRATORY [id number] [place] [address] USABase excess Calc (Bld) [Moles/Vol] 5.1 mmol/LHigh-2.0-3.0UnUniversity Hospitals Lake West Medical CenterComment on above: Performed By: #### [id number] ####[facility] RESPIRATORY [id number] [place] [address] USACARBOXYHEMOGLOBIN/HEMOGLOBIN TOTAL % IN BLOOD1.9 %Normal0.0-3.0 [facility] PrebleComment on above:Performed By: #### [id number] ####[facility] RESPIRATORY [id number] [facility] [place] [address] USACO2 (Bld) [Partial pressure]46 mm[Hg]Lfhpjk44-98WuggdoylerUniversity Hospitals Lake West Medical CenterComment on above:Performed By: #### [id number] ####[facility] RESPIRATORY [id number] [facility] [place] [address] USADEOXYGENATED HEMOGLOBIN IN BLOOD15.8 %Critically high1-5 [facility]bleComment on above:Performed By: #### [id number] ####[facility] RESPIRATORY [id number] [facility] [place] [address] USAHCO3 (Bld) [Moles/Vol]30.5 mmol/LHigh21.0-28.0UnUniversity Hospitals Lake West Medical CenterComment on above:Performed By: #### [id number] ####[facility] RESPIRATORY [id number] [facility] [place] [address] USAHemoglobin (Bld) [Mass/Vol]16.4 g/oIWswbvm88.7-17.4 [facility]bleComment on above:Performed By: #### [id number] ####[facility] RESPIRATORY [id number] [place] [address] FXRPPQ35Jnfeli [facility] PrebleComment on above:Performed By: #### [id number] ####[facility] RESPIRATORY [id number] [place] [address] [place] METHEMOGLOBIN/100 IN BLOOD0.6 %Normal0.0-1.5UnUniversity Hospitals Lake [facility] Medical Center Comment on above:Performed By: #### [id number] ####[facility] RESPIRATORY [id number] [place] [address] USAOxygen (Bld) [Partial pressure]53 mm[Hg]Invalid Interpretation Sszo65-250ElhkhvixweUniversity Hospitals Lake West Medical CenterComment on above: Performed By: #### [id number] ####[facility] RESPIRATORY [id number] [place] [address] USAOXYGEN SATURATION (%) IN ARTERIAL BLOOD83.8 %Invalid Interpretation Code94.0-98.0UnUniversity Hospitals Lake West Medical CenterComment on above:Performed By: #### [id number] ####[facility] RESPIRATORY [id number] [place] [address] [place] OXYGENATED HEMOGLOBIN IN BLOOD81.7 %Invalid Interpretation Code90.0-95.0 [facility] PrebleComment on above:Performed By: #### [id number] ####[facility] RESPIRATORY [id number] [place] [address] USApH (Bld)7.43 [pH]Normal7.35-7.45UnUniversity Hospitals Lake West Medical CenterComment on above:Performed By: #### [id number] ####[facility] RESPIRATORY [id number] [place] [address] USASOURCE OF OXYGENSALTERNormalUnUniversity Hospitals Lake West Medical CenterComment on above:Performed By: #### [id number] ####[facility] RESPIRATORY [id number] [place] [address] USAARTERIAL BLOOD GAS WITH IONIZED CALCIUMon 84-12-6573Daxf excess Calc (Bld) [Moles/Vol]6.2 mmol/LHigh-2.0-3.0UnUniversity Hospitals Lake West Medical CenterComment on above:Performed By: #### [id number] ####[facility] RESPIRATORY [id number] [place] [address] USACALCIUM IONIZED (MMOL/L) IN BLOOD 1.30 mmol/LNormal1.15-1.33UnUniversity Hospitals Lake West Medical CenterComment on above: Performed By: #### [id number] ####[facility] RESPIRATORY [id number] [place] [address] USACO2 (Bld) [Partial pressure]45 mm[Hg]Pdojmj68-48CjkebmjgzkUniversity Hospitals Lake West Medical CenterComment on above:Performed By: #### [id number] ####[facility] RESPIRATORY [id number] [place] [address] UUYTXH971 %Normal [facility] PrebleComment on above:Performed By: #### [id number] ####[facility] RESPIRATORY [id number] [place] [address] USAHCO3 (Bld) [Moles/Vol]31.3 mmol/LHigh21.0-28.0UnUniversity Hospitals Lake West Medical CenterComment on above:Performed By: #### [id number] ####[facility] RESPIRATORY [id number] [place] [address] USAOxygen (Bld) [Partial pressure]70 mm[Hg]Kaz85-812 [facility]bleComment on above:Performed By: #### [id number] ####[facility] RESPIRATORY [id number] [place] [address] USAOXYGEN SATURATION (%) IN ARTERIAL BLOOD94.9 %Lmntvp54.0-98.0UnUniversity Hospitals Lake West Medical CenterComment on above:Performed By: #### [id number] ####[facility] RESPIRATORY [id number] [place] [address] USAPEEP8 qlQ3YAulvazJmnoknjiviTrinity Health System East CampusComment on above:Performed By: #### [id number] ####[facility] RESPIRATORY [id number] [place] [address] USApH (Bld)7.45 [pH]Normal 7.35-7.45UnUniversity Hospitals Lake West Medical CenterComment on above:Performed By: #### [id number] ####[facility] RESPIRATORY [id number] [place] [address] [place] PRESSURE OPSKVRI46DacpguHglaugyfxbTrinity Health System East CampusComment on above: Performed By: #### [id number] ####[facility] RESPIRATORY [id number] [place] [address] USASOURCE OF OXYGENBi-PAPNormalUniversKettering Health Greene Memorial Comment on above:Performed By: #### [id number] ####[facility] RESPIRATORY [id number] [place] [address] USABASIC METABOLIC PANELon 22-97-9477Uvrrw gap [Moles/Vol]11 mmol/LNormal7-20UnUniversity Hospitals Lake West Medical CenterComment on above:Performed By: #### [id number] ####[facility] ([facility])[address] [place], [place] [address]Huqwpsg [Mass/Vol]9.4 mg/dLNormal8.6-10.3UnUniversity Hospitals Lake West Medical CenterComment on above:Performed By: #### [id number] ####[facility] ([facility])[address] [place], [place] [address]Gqbafjtp [Moles/Vol]101 mmol/LNormal 98-107UnUniversity Hospitals Lake West Medical CenterComment on above:Performed By: #### [id number] ####[facility] ([facility])[address] [place], [place] [address]OF0 [Moles/Vol]30 mmol/XJdzijo80-67MugojtagnwUniversity Hospitals Lake West Medical CenterComment on above:Performed By: #### [id number] ####[facility] ([facility])[address] [place], [place] [address]Mzpfslkeop [Mass/Vol]1.05 mg/dLNormal0.70-1.30UnUniversity Hospitals Lake West Medical CenterComment on above:Performed By: #### [id number] ####[facility] ([facility])[address] [place], [place] [address]JVUBOUEFEA FILTRATION RATE ML/MIN/1.73 SQ M.RCIABAGTO75.8 mL/min/1.73m*2Normal>60.0UnUniversity Hospitals Lake West Medical CenterComment on above:Result Comment: [facility]???s estimated glomerular filtration rate (eGFR) will no [...] anyone group of individuals.Performed By: #### [id number] ####[facility] ([facility])[address] [place] [address]Nogmtwa [Mass/Vol]269 mg/nIBgca30-627CfylybexzzUniversity Hospitals Lake West Medical CenterComment on above:Performed By: #### [id number] ####[facility] ([facility])[address] [place] [address]Aqqkgcnqn [Moles/Vol]4.0 mmol/LNormal3.5-5.1UnUniversity Hospitals Lake West Medical CenterComment on above:Performed By: #### [id number] ####[facility] ([facility])[address] [place] [address]Vdvyaj [Moles/Vol]138 mmol/L Gylbfj487-847MdpgywppgmUniversity Hospitals Lake West Medical CenterComment on above:Performed By: #### [id number] ####[facility] ([facility])[address] [place] [address]Jaur nitrogen [Mass/Vol]35 mg/dLHigh7-25UnUniversity Hospitals Lake West Medical CenterComment on above:Performed By: #### [id number] ####[facility] ([facility])[address] [place] [address]QAGR NITROGEN/CREATININE (MASS RATIO) IN SER/PLAS33.3Normal [facility]bleComment on above:Performed By: #### [id number] ####[facility] ([facility])[address] [place] [address]QZVKRUN, IONIZED on 51-58-1426PAGHZAZ IONIZED (MMOL/L) IN BLOOD1.29 mmol/LNormal1.15-1.33 [facility] PrebleComment on above:Performed By: #### CALCIUM, IONIZED ####[facility] RESPIRATORY [id number] [place] [address] USACBC WITH AUTO DIFFERENTIALon 13-75-9869Kelknfjwj (Bld) [#/Vol]0.05 10*3/uLNormal 0.00-0.20UnUniversity Hospitals Lake West Medical CenterComment on above:Performed By: #### [id number] ####[facility] (BEAKER)[address] [place] [address] Basophils/100 WBC (Bld)0.6 %Normal0.0-1.0UnUniversity Hospitals Lake [facility] Medical Center Comment on above:Performed By: #### [id number] ####[facility] ([facility] [place], [place] [address]Dkakdxqxkxe (Bld) [#/Vol]0.43 10*3/uLNormal 0.00-0.50UnUniversity Hospitals Lake West Medical CenterComment on above:Performed By: #### [id number] ####[facility] ([facility])[address] [place] [address] Eosinophils/100 WBC (Bld)5.2 %Normal0.0-6.0UnUniversity Hospitals [facility] Medical Center Comment on above:Performed By: #### [id number] ####[facility] ([facility])[address] [place], [place] [address]Dxrbacquumq distribution width (RBC) [Ratio]14.8 % Ppgbtm05.5-15.0UnUniversity Hospitals Lake West Medical CenterComment on above:Performed By: #### [id number] ####[facility] ([facility])[address] [place] [address] ERYTHROCYTE MEAN CORPUSCULAR HEMOGLOBIN CONCENTRATION (G/DL) BY XBLXRXKMA10.1 g/dLLow32.0-35.0UnUniversity Hospitals Lake West Medical CenterComment on above:Performed By: #### [id number] ####[facility] ([facility] [facility])[address] [place], [place] [address]Yszcokcygg (Bld) [Volume fraction]52.1 %Qujhgz81.0-55.0UnUniversity Hospitals Lake West Medical CenterComment on above:Performed By: #### [id number] ####[facility] ([facility])[address] [place], [place] [address]Cdfkqkhdro (Bld) [Mass/Vol]16.2 g/dL Ukqbfn01.0-17.0UnUniversity Hospitals Lake West Medical CenterComment on above:Performed By: #### [id number] ####[facility] ([facility])[address] [place] [address] Immature granulocytes (Bld) [#/Vol]0.06 10*3/uLNormal0.00-0.20UnUniversity Hospitals Lake West Medical CenterComment on above:Performed By: #### [id number] ####[facility] ([facility])[address] [place], [place] [address]Jpqjhhaq granulocytes/100 WBC (Bld)0.7 %Normal0.0-1.0UnUniversity Hospitals Lake West Medical CenterComment on above: Performed By: #### [id number] ####[facility] ([facility])[address] [place] [address]Gdxiccwhlle (Bld) [#/Vol]1.10 10*3/uLLow1.20-4.00UnUniversity Hospitals Lake West Medical CenterComment on above:Performed By: #### [id number] ####[facility] ([facility])[address] [place] [address]Fwmxuytyegv/100 WBC (Bld) 13.3 %Low20.0-45.0UnUniversity Hospitals Lake West Medical CenterComment on above:Performed By: #### [id number] ####[facility] ([facility])[address] [place], [place] [address]LSX (RBC) [Entitic mass]29.1 pmZkcint58.0-33.0UnUniversity Hospitals Lake West Medical CenterComment on above:Performed By: #### [id number] ####[facility] ([facility])[address] [facility] [place] [address]THZ (RBC) [Entitic vol]93.7 fLNormal 82.0-98.0UnUniversity Hospitals Lake West Medical CenterComment on above:Performed By: #### [id number] ####[facility] ([facility])[address] [place] [address] Monocytes (Bld) [#/Vol]0.92 10*3/uLNormal0.10-1.00UnUniversity Hospitals Lake West Medical CenterComment on above:Performed By: #### [id number] ####[facility] ([facility])[address] [place] [address]Xzcpyhkob/100 WBC (Bld)11.1 %Normal 5.0-12.0[facility] Health PrebleComment on above:Performed By: #### [id number] ####[facility] ([facility])[address] [place] [address] Neutrophils (Bld) [#/Vol]5.72 10*3/uLNormal1.60-7.60UnUniversity Hospitals Lake West Medical CenterComment on above:Performed By: #### [id number] ####[facility] ([facility])[address] [place] [address]Aytrkglrbvc/100 WBC (Bld)69.1 %Normal 40.0-72.0UnUniversity Hospitals Lake West Medical CenterComment on above:Performed By: #### [id number] ####[facility] ([facility])[address] [place] [address]VVLU (PER 100 WBCS) BY AUTOMATED COUNT0.0 %Woieid5YptthyfqazUniversity Hospitals Lake West Medical Center Comment on above:Performed By: #### [id number] ####[facility] ([facility])[address] [place] [address]MMUAMUZDA (10*3/UL) IN BLOOD AUTOMATED [id number] 10*3/wRTdedxl790-134PbvdwntffcUniversity Hospitals Lake West Medical CenterComment on above: Performed By: #### [id number] ####[facility] ([facility])[address] [place] [address]KOM (Bld) [#/Vol]5.56 10*6/uLNormal4.20-5.70UnUniversity Hospitals Lake West Medical CenterComment on above:Performed By: #### [id number] ####[facility] ([facility])[address] [place] [address]DWH (Bld) [#/Vol]8.28 10*3/uLNormal4.00-10.60UnUniversity Hospitals Lake West Medical CenterComment on above: Performed By: #### [id number] ####[facility] ([facility])[address] [place], [place] [address]HC BRAIN PERFUSIONon 76-76-8841DH BRAIN PERFUSIONInvalid Interpretation CodeUnUniversity Hospitals Lake West Medical CenterCT HEAD WO IV CONTRASTon 31-11-9001VD HEAD WO IV CONTRASTNormalUniversity Adena Health SystemCTA HEAD W IV CONTRASTon 70-31-9776OGS HEAD W IV CONTRASTNormalUniversKettering Health Greene MemorialCTA NECK W IV CONTRASTon 01-66-8855FWL NECK W IV CONTRASTNormal [facility] PrebleMAGNESIUMon 91-68-9255Mcrlaosnh [Mass/Vol]1.8 mg/dLLow1.9-2.7UnUniversity Hospitals Lake West Medical CenterComment on above:Performed By: #### [id number] ####[facility] ([facility])[address] [place] [address] MRSA/MSSA DNA NASALon 63-02-4912ANMG DNAPositiveAbnormalNegativeUnUniversity Hospitals Lake West Medical CenterComment on above:Order Comment: Testing methodology is an [...] does not preclude nasal colonization.Performed By: #### [id number] ####[facility] ([facility])[address] [place], [place] [address]JQPJ DNANegativeNormalNegative [facility] PrebleComment on above:Order Comment: Testing methodology is an [...] does not preclude nasal colonization.Performed By: #### [id number] ####[facility] ([facility])[address] [place], [place] [address]LPENCXNTTQar 46-06-7729Xfjeorxgl [Mass/Vol]2.5 mg/dLNormal2.5-5.0UnUniversity Hospitals Lake West Medical CenterComment on above:Performed By: #### [id number] ####[facility] ([facility])[address] [place], [place] [address]KVKE GLUCOSE METER UNSOLICITED RESULTS on 39-92-6791Sdlfrll [Mass/Vol]230 mg/nLKleq68-621RavztrdeukUniversity Hospitals Lake West Medical CenterComment on above:Order Comment: Waived Testing in the ED is performed under the ED CLIA certificate #[id number].Result Comment: [email or web address] By: #### [id number] ####[facility] ([facility])[address] [place] [address] Glucose [Mass/Vol]226 mg/uLHlkj80-125SssfenvglqUniversity Hospitals Lake West Medical CenterComment on above:Order Comment: Waived Testing in the ED is performed under the ED CLIA certificate #[id number].Result Comment: [email or web address] By: #### [id number] ####[facility] ([facility])[address] [place], [place] [address]Feecasw [Mass/Vol]229 mg/gREdht57-819WlukynxeyrUniversity Hospitals Lake West Medical CenterComment on above:Order Comment: Waived Testing in the ED is performed under the ED CLIA certificate #[id number].Result Comment: [id number] By: #### [id number] ####[facility] ([facility])[address] [place], [place] [address]Iggrqdj [Mass/Vol]234 mg/zCEzim64-517VmqsowrrvfUniversity Hospitals Lake West Medical CenterComment on above:Order Comment: Waived Testing in the ED is performed under the ED CLIA certificate #[id number].Result Comment: [email or web address] By: #### [id number] ####[facility] ([facility])[address] [place], [place] [address]YNKCVQAIF, WHOLE BLOODon 38-10-2833Ztrlyyepj [Moles/Vol]3.3 mmol/LLow3.5-5.1UnUniversity Hospitals Lake West Medical CenterComment on above:Performed By: #### POTASSIUM, WHOLE BLOOD ####[facility] [id number] [place] [address] USASODIUM, WHOLE BLOODon 80-51-4501KHIQQO, WHOLE RZJAL064Kovrbl183-227DgykzviktfUniversity Hospitals Lake West Medical CenterComment on above:Performed By: #### SODIUM, WHOLE BLOOD ####[facility] RESPIRATORY [id number] [place] [address] FCE74wb 07-90-813065Wxfxbo [facility] PrebleANTI-XA (HEPARIN LEVEL)on 81-15-8547GMXUDQA UNFRACTIONATED (U/ML) IN PPP BY CHROMOGENIC METHOD0.30 IU/mLNormal0.3-0.7 [facility] PrebleComment on above:Result Comment: Rivaroxaban and Apixaban will interfere with the anti Xa assay used to monitor UFH and LMWH. Performed By: #### [id number] ####[facility] ([facility])[address] [place], [place] [address]YSWKE METABOLIC PANELon 18-88-9193Wbaqi gap [Moles/Vol]8 mmol/LNormal7-20UnUniversity Hospitals Lake West Medical CenterComment on above:Performed By: #### [id number] ####[facility] ([facility])[address] [place] [address] Calcium [Mass/Vol]9.4 mg/dLNormal8.6-10.3UnUniversity Hospitals [facility] Medical Center Comment on above:Performed By: #### [id number] ####[facility] ([facility])[address] [place], [place] [address]Dqoicpgc [Moles/Vol]99 mmol/XRvnely07-953SczymayjbqUniversity Hospitals Lake West Medical CenterComment on above:Performed By: #### [id number] ####[facility] ([facility])[address] [place], [place] [address]XZ4 [Moles/Vol]34 mmol/L Jpnh27-21QcybsogmxoUniversity Hospitals Lake West Medical CenterComment on above:Performed By: #### [id number] ####[facility] ([facility])[address] [place] [address]Eciqgwqjka [Mass/Vol]0.97 mg/dLNormal0.70-1.30UnUniversity Hospitals Lake West Medical CenterComment on above:Performed By: #### [id number] ####[facility] ([facility])[address] [place] [address]VJDZXNNTMQ FILTRATION RATE ML/MIN/1.73 SQ M.DQTRBAVXU84.6 mL/min/1.73m*2Normal>60.0UnUniversity Hospitals Lake West Medical CenterComment on above: Result Comment: The [facility]???s estimated glomerular filtration rate (eGFR) will no [...] anyone group of individuals.Performed By: #### [id number] ####[facility] ([facility])[address] [place] [address]Xjjlyuc [Mass/Vol]267 mg/bOPcax72-697NzxxbocrvgUniversity Hospitals Lake West Medical CenterComment on above:Performed By: #### [id number] ####[facility] ([facility])[address] [place] [address]Zhpktjbai [Moles/Vol]3.9 mmol/L Normal3.5-5.1UnUniversity Hospitals Lake West Medical CenterComment on above:Performed By: #### [id number] ####[facility] ([facility])[address] [place] [address] Sodium [Moles/Vol]137 mmol/RVtgubh898-424EwoauoykkzUniversity Hospitals Lake West Medical Center Comment on above:Performed By: #### [id number] ####[facility] ([facility])[address] [place] [address]Kmtz nitrogen [Mass/Vol]33 mg/dLHigh7-25UnUniversity Hospitals Lake West Medical CenterComment on above:Performed By: #### [id number] ####[facility] ([facility])[address] [place] [address]QBDX NITROGEN/CREATININE (MASS RATIO) IN SER/PLAS34.0NormalUniversKettering Health Greene MemorialComment on above:Performed By: #### [id number] ####[facility] ([facility])[address] [place] [address]BKM WITH AUTO DIFFERENTIALon 37-69-9174Ifoitgebq (Bld) [#/Vol]0.04 10*3/uLNormal0.00-0.20UnUniversity Hospitals Lake West Medical CenterComment on above:Performed By: #### [id number] ####[facility] ([facility])[address] [place], [place] [address]Cjnrzjops/100 WBC (Bld)0.4 %Normal0.0-1.0UnUniversity Hospitals Lake West Medical CenterComment on above:Performed By: #### [id number] ####[facility] ([facility])[address] [place], [place] [address]Oktltvvyoqd (Bld) [#/Vol]0.58 10*3/uL High0.00-0.50UnUniversity Hospitals Lake West Medical CenterComment on above:Performed By: #### [id number] ####[facility] ([facility])[address] [place] [address] Eosinophils/100 WBC (Bld)5.6 %Normal0.0-6.0UnUniversity Hospitals [facility] Medical Center Comment on above:Performed By: #### [id number] ####[facility] ([facility])[address] [place], [place] [address]Yriealsgcum distribution width (RBC) [Ratio]15.1 % High11.5-15.0UnUniversity Hospitals Lake West Medical CenterComment on above:Performed By: #### [id number] ####[facility] ([facility])[address] [place] [address] ERYTHROCYTE MEAN CORPUSCULAR HEMOGLOBIN CONCENTRATION (G/DL) BY VYFEQBLOK15.5 g/dLLow32.0-35.0UnUniversity Hospitals Lake West Medical CenterComment on above:Performed By: #### [id number] ####[facility] ([facility])[address] [place], [place] [address]Zqesigkbqb (Bld) [Volume fraction]52.1 %Hwkwqv83.0-55.0UnUniversity Hospitals Lake West Medical CenterComment on above:Performed By: #### [id number] ####[facility] ([facility])[address] [place], [place] [address]Vhlfrlizef (Bld) [Mass/Vol]15.9 g/dL Yvfalb97.0-17.0UnUniversity Hospitals Lake West Medical CenterComment on above:Performed By: #### [id number] ####[facility] ([facility])[address] [place] [address] Immature granulocytes (Bld) [#/Vol]0.07 10*3/uLNormal0.00-0.20UnUniversity Hospitals Lake West Medical CenterComment on above:Performed By: #### [id number] ####[facility] ([facility])[address] [place], [place] [address]Alwrvsxg granulocytes/100 WBC (Bld)0.7 %Normal0.0-1.0UnUniversity Hospitals Lake West Medical CenterComment on above: Performed By: #### [id number] ####[facility] ([facility])[address] [place], [place] [address]Bwkcokijshr (Bld) [#/Vol]0.94 10*3/uLLow1.20-4.00UnUniversity Hospitals Lake West Medical CenterComment on above:Performed By: #### [id number] ####[facility] ([facility])[address] [place], [place] [address]Aqqsehffacr/100 WBC (Bld) 9.1 %Low20.0-45.0UnUniversity Hospitals Lake West Medical CenterComment on above:Performed By: #### [id number] ####[facility] ([facility])[address] [place], [place] [address]AFT (RBC) [Entitic mass]29.0 uvJvapzb14.0-33.0UnUniversity Hospitals Lake West Medical CenterComment on above:Performed By: #### [id number] ####[facility] ([facility])[address] [place], [place] [address]ZSR (RBC) [Entitic vol]94.9 fLNormal 82.0-98.0UnUniversity Hospitals Lake West Medical CenterComment on above:Performed By: #### [id number] ####[facility] ([facility])[address] [place] [address] Monocytes (Bld) [#/Vol]0.95 10*3/uLNormal0.10-1.00UnUniversity Hospitals Lake West Medical CenterComment on above:Performed By: #### [id number] ####[facility] ([facility])[address] [place] [place] [address]Bygbjximi/100 WBC (Bld)9.2 %Normal 5.0-12.0UnUniversity Hospitals Lake West Medical CenterComment on above:Performed By: #### [id number] ####[facility] ([facility])[address] [place] [address] Neutrophils (Bld) [#/Vol]7.72 10*3/uLHigh1.60-7.60UnUniversity Hospitals Lake West Medical CenterComment on above:Performed By: #### [id number] ####[facility] ([facility])[address] [place] [place] [address]Zmgqwhuprew/100 WBC (Bld)75.0 %High 40.0-72.0UnUniversity Hospitals Lake West Medical CenterComment on above:Performed By: #### [id number] ####[facility] ([facility])[address] [facility] [address]ORYU (PER 100 WBCS) BY AUTOMATED COUNT0.0 %Lqdvwx5MptbdmoifoUniversity Hospitals Lake West Medical Center Comment on above:Performed By: #### [id number] ####[facility] ([facility])[address] [place] [address]CVDFPLYKD (10*3/UL) IN BLOOD AUTOMATED [id number] 10*3/kFJxyqko125-448VwnpbtcepbUniversity Hospitals Lake West Medical CenterComment on above: Performed By: #### [id number] ####[facility] ([facility])[address] [place] [address]ZSM (Bld) [#/Vol]5.49 10*6/uLNormal4.20-5.70UnUniversity Hospitals Lake West Medical CenterComment on above:Performed By: #### [id number] ####[facility] ([facility])[address] [place] [address]USK (Bld) [#/Vol]10.30 10*3/uLNormal4.00-10.60UnUniversity Hospitals Lake West Medical CenterComment on above: Performed By: #### [id number] ####[facility] ([facility])[address] [place] [address]YGOUFMWFGnn 77-46-3795Dbeyotkhi [Mass/Vol]1.9 mg/dLNormal 1.9-2.7UnUniversity Hospitals Lake West Medical CenterComment on above:Performed By: #### [id number] ####[facility] ([facility])[address] [place] [address] PHOSPHORUSon 55-05-8637Xvazpjheh [Mass/Vol]2.1 mg/dLLow2.5-5.0UnUniversity Hospitals Lake West Medical CenterComment on above:Performed By: #### [id number] ####[facility] ([facility])[address] [place] [address]LHRF GLUCOSE METER UNSOLICITED RESULTSon 63-12-2287Aqaivha [Mass/Vol]268 mg/gYLkpr66-998CunesxpnmqUniversity Hospitals Lake West Medical CenterComment on above:Order Comment: Waived Testing in the ED is performed under the ED CLIA certificate #[id number].Result Comment: [email or web address] Performed By: #### [id number] ####[facility] ([facility])[address] [place] [id number] 00-88-998674XkneuhBgnfocxitz of [place] Medical Mboenc48 NormalUnUniversity Hospitals Lake West Medical CenterANTI-XA (HEPARIN LEVEL)on 08-19-2024 HEPARIN UNFRACTIONATED (U/ML) IN PPP BY CHROMOGENIC METHOD0.41 IU/mLNormal 0.3-0.7UnUniversity Hospitals Lake West Medical CenterComment on above:Result Comment: Rivaroxaban and Apixaban will interfere with the anti Xa assay used to monitor UFH and LMWH.Performed By: #### [id number] ####[facility] (AKER)[address] [place] [address]WZPBE METABOLIC PANELon 90-22-9533Whbdd gap [Moles/Vol]8 mmol/LNormal7-20UnUniversity Hospitals Lake West Medical CenterComment on above:Performed By: #### [id number] ####[facility] ([facility])[address] [place] [address]Btdjaxs [Mass/Vol]8.9 mg/dLNormal8.6-10.3UnUniversity Hospitals Lake West Medical CenterComment on above:Performed By: #### [id number] ####[facility] ([facility])[address] [place] [address]Wxklzovz [Moles/Vol]99 mmol/LNormal 98-107UnUniversity Hospitals Lake West Medical CenterComment on above:Performed By: #### [id number] ####[facility] ([facility])[address] [place] [address]KO1 [Moles/Vol]37 mmol/SOljz71-99QgfxingpxrUniversity Hospitals Lake West Medical CenterComment on above:Performed By: #### [id number] ####[facility] ([facility])[address] [place], [place] [address]Vnidochgqu [Mass/Vol]1.00 mg/dLNormal0.70-1.30UnUniversity Hospitals Lake West Medical CenterComment on above:Performed By: #### [id number] ####[facility] ([facility])[address] [place], [place] [address]UXWATDANKG FILTRATION RATE ML/MIN/1.73 SQ M.RPLVRDOIM44.5 mL/min/1.73m*2Normal>60.0UnUniversity Hospitals Lake West Medical CenterComment on above:Result Comment: The [facility]???s estimated glomerular filtration rate (eGFR) will no [...] anyone group of individuals.Performed By: #### [id number] ####[facility] ([facility])[address] [place] [place] [address]Aiyuguc [Mass/Vol]219 mg/uHMnfn22-871AokzaogvmnUniversity Hospitals Lake West Medical CenterComment on above:Performed By: #### [id number] ####[facility] ([facility])[address] [place] [address]Vcrdhulms [Moles/Vol]3.9 mmol/LNormal3.5-5.1UnUniversity Hospitals Lake West Medical CenterComment on above:Performed By: #### [id number] ####[facility] ([facility])[address] [facility] [place] [facility] [address]Rsfwqr [Moles/Vol]140 mmol/L Oymety615-769IvnpbssribUniversity Hospitals Lake West Medical CenterComment on above:Performed By: #### [id number] ####[facility] ([facility])[address] [place] [address]Otph nitrogen [Mass/Vol]28 mg/dLHigh7-25UnUniversity Hospitals Lake West Medical CenterComment on above:Performed By: #### [id number] ####[facility] ([facility])[address] [place] [place], [place] [address]SKZT NITROGEN/CREATININE (MASS RATIO) IN SER/PLAS28.0Normal [facility] PrebleComment on above:Performed By: #### [id number] ####[facility] ([facility])[address] [place] [address]XXZ WITH AUTO DIFFERENTIALon 01-40-8050Tcoliiyua (Bld) [#/Vol]0.04 10*3/uLNormal0.00-0.20 [facility] PrebleComment on above:Performed By: #### [id number] ####[facility] ([facility])[address] [place] [address]Cjgiivrkc/100 WBC (Bld)0.4 %Normal0.0-1.0UnUniversity Hospitals Lake West Medical CenterComment on above: Performed By: #### [id number] ####[facility] ([facility])[address] [place], [place] [address]Bylnimvtpjf (Bld) [#/Vol]0.62 10*3/uLHigh0.00-0.50UnUniversity Hospitals Lake West Medical CenterComment on above:Performed By: #### [id number] ####[facility] ([facility])[address] [place], [place] [address]Nwiojrofdve/100 WBC (Bld) 6.7 %High0.0-6.0UnUniversity Hospitals Lake West Medical CenterComment on above:Performed By: #### [id number] ####[facility] ([facility])[address] [place], [place] [address]Gdijmrlnvbp distribution width (RBC) [Ratio]15.4 %High11.5-15.0UnUniversity Hospitals Lake West Medical CenterComment on above:Performed By: #### [id number] ####[facility] ([facility])[address] [place], [place] [address]DOELZMXNLVQ MEAN CORPUSCULAR HEMOGLOBIN CONCENTRATION (G/DL) BY XRYOMLSPY36.8 g/dLLow32.0-35.0 [facility] PrebleComment on above:Performed By: #### [id number] ####[facility] ([facility])[address] [place], [place] [address]Qbkipsufrs (Bld) [Volume fraction]49.4 %Hbyfia55.0-55.0Un[facility] Comment on above:Performed By: #### [id number] ####[facility] ([facility])[address] [place], [place] [address]Tulirvgnhr (Bld) [Mass/Vol]14.7 g/sCAxavcz05.0-17.0 [facility] PrebleComment on above:Performed By: #### [id number] ####[facility] ([facility])[address] [place], [place] [address]Vmpzsvfv granulocytes (Bld) [#/Vol]0.06 10*3/uLNormal0.00-0.20UnUniversity [facility]als [facility] Medical CenterComment on above:Performed By: #### [id number] ####[facility] ([facility])[address] [place], [place] [address]Yulajdhr granulocytes/100 WBC (Bld)0.7 %Normal0.0-1.0UnUniversity Hospitals [facility] Medical CenterComment on above:Performed By: #### [id number] ####[facility] ([facility])[address] [place] [address] Lymphocytes (Bld) [#/Vol]0.86 10*3/uLLow1.20-4.00UnUniversity [facility]als [facility] Medical CenterComment on above:Performed By: #### [id number] ####[facility] ([facility])[address] [place], [place] [address]Mwefshfbikc/100 WBC (Bld)9.3 %Low 20.0-45.0UnUniversity [facility] Medical CenterComment on above:Performed By: #### [id number] ####[facility] ([facility])[address] [place], [place] [address]KHN (RBC) [Entitic mass]28.9 eqTdntnv11.0-33.0UnUniversity Hospitals Lake West Medical Center Comment on above:Performed By: #### [id number] ####[facility] (BEAKER)[address] [place], [place] [address]IUB (RBC) [Entitic vol]97.2 sLKtevbb11.0-98.0 [facility] CenterComment on above:Performed By: #### [id number] ####[facility] ([facility]ER)[address] [place] [address]Vjtsifbxg (Bld) [#/Vol]0.94 10*3/uLNormal0.10-1.00UnUniversity Hospitals Lake West Medical CenterComment on above:Performed By: #### [id number] ####[facility] ([facility])[address] [place] [address]Tbjetwrwi/100 WBC (Bld)10.2 %Normal5.0-12.0UnUniversity Hospitals Lake West Medical CenterComment on above:Performed By: #### [id number] ####[facility] ([facility])[address] [place], [place] [address]Swvuqrufghf (Bld) [#/Vol] 6.68 10*3/uLNormal1.60-7.60UnUniversity Hospitals Lake West Medical CenterComment on above: Performed By: #### [id number] ####[facility] ([facility])[address] [place] [address]Rcibfclhkvd/100 WBC (Bld)72.7 %High40.0-72.0UnUniversity Hospitals Lake West Medical CenterComment on above:Performed By: #### [id number] ####[facility] ([facility])[address] [place] [address]BMZJ (PER 100 WBCS) BY AUTOMATED COUNT0.0 %Duarcr4NkrquolquxUniversity Hospitals Lake West Medical CenterComment on above: Performed By: #### [id number] ####[facility] ([facility])[address] [place] [address]WJMVXDOAR (10*3/UL) IN BLOOD AUTOMATED [id number] 10*3/uLNormal 150-400UnUniversity Hospitals Lake West Medical CenterComment on above:Performed By: #### [id number] ####[facility] ([facility])[address] [place], [place] [address]OCR (Bld) [#/Vol]5.08 10*6/uLNormal4.20-5.70UnUniversity Hospitals [facility] Center Comment on above:Performed By: #### [id number] ####[facility] ([facility])[address] [place] [address]IWP (Bld) [#/Vol]9.20 10*3/uLNormal4.00-10.60 [facility] PrebleComment on above:Performed By: #### [id number] ####[facility] ([facility])[address] [place] [address]MOZMVSFvx 93-91-9181AIKVPTIRdjwupIhssmhbfob [facility] SystemMAGNESIUMon 08-19-2024 Magnesium [Mass/Vol]1.9 mg/dLNormal1.9-2.7UnUniversity Hospitals [facility] Center Comment on above:Performed By: #### [id number] ####[facility] ([facility])[address] [address]UOTBMOTVYVmr 28-64-6798Elziuzhtt [Mass/Vol]2.9 mg/dLNormal2.5-5.0UnUniversity Hospitals Lake West Medical CenterComment on above:Performed By: #### [id number] ####[facility] ([facility])[address] [place] [address] POCT GLUCOSE METER UNSOLICITED RESULTSon 57-63-7595Ouszicc [Mass/Vol]239 mg/dL Olsi63-823YxzgfodapvUniversity Hospitals Lake West Medical CenterComment on above:Order Comment: Waived Testing in the ED is performed under the ED CLIA certificate #[id number]. Result Comment: zbxzlws0Rudtgnilg By: #### [id number] ####[facility] ([facility])[address] [place] [address]Guytody [Mass/Vol]251 mg/bJFmlo75-495 [facility] PrebleComment on above:Order Comment: Waived Testing in the ED is performed under the ED CLIA certificate #[id number].Result Comment: bxmlded7Pvaohhkgk By: #### [id number] ####[facility] ([facility])[address] [place] [address]Rbrpyvh [Mass/Vol]185 mg/dVHfmp31-020GvxsjtemjiUniversity Hospitals Lake West Medical CenterComment on above:Order Comment: Waived Testing in the ED is performed under the ED CLIA certificate #[id number].Result Comment: [id number] Performed By: #### [id number] ####[facility] ([facility])[address] [place] [address]SBCNCDBODDZWFcj 83-66-5215VANMQCP?UNKNOWNNormalUniversity of Adventhealth Rollins BrookComment on above:Performed By: #### [id number] ####[facility] ([facility])[address] [place], [place] [address]Djsuiihmj [Mass/Vol]192 mg/tANzsb24-532CndxooveczUniversity Hospitals Lake West Medical CenterComment on above:Result Comment: TRIGLYCERIDE REFERENCE RANGE:20 YEARS AND OLDER CARDIOVASCULAR RISKLESS THAN 150 mg/dL LOW AIMP804 TO 199 mg/dL BORDERLINE PUUZ327 mg/dL AND GREATER HIGH RISKPerformed By: #### [id number] ####[facility] ([facility])[address] [place], [place] [address]CTRR-ET (HEPARIN LEVEL)on 65-29-9298PCFDGWI UNFRACTIONATED (U/ML) IN PPP BY CHROMOGENIC METHOD0.50 IU/mLNormal0.3-0.7[facility] PrebleComment on above:Result Comment: Rivaroxaban and Apixaban will interfere with the anti Xa assay used to monitor UFH and LMWH.Performed By: #### [id number] ####[facility] ([facility])[address] [place], [place] [address]RQOROTH UNFRACTIONATED (U/ML) IN PPP BY CHROMOGENIC METHOD0.60 IU/mLNormal0.3-0.7 [facility] PrebleComment on above:Result Comment: Rivaroxaban and Apixaban will interfere with the anti Xa assay used to monitor UFH and LMWH. Performed By: #### [id number] ####[facility] ([facility])[address] [place], [place] [address]JPIXS METABOLIC PANELon 31-96-6612Ncbjh gap [Moles/Vol]8 mmol/LNormal7-20UnUniversity Hospitals Lake West Medical CenterComment on above:Performed By: #### [id number] ####[facility] ([facility])[address] [place] [address] Calcium [Mass/Vol]8.7 mg/dLNormal8.6-10.3UnUniversity [facility] Comment on above:Performed By: #### [id number] ####[facility] ([facility])[address] [place] [address]Hyautfia [Moles/Vol]98 mmol/BJkyaqy63-943JoquihqapzUniversity Hospitals Lake West Medical CenterComment on above:Performed By: #### [id number] ####[facility] ([facility])[address] [place] [address]WG8 [Moles/Vol]41 mmol/L Critically skow82-31AkxtmyodhwUniversity Hospitals Lake West Medical CenterComment on above: Performed By: #### [id number] ####[facility] ([facility])[address] [place], [place] [address]Ljucmvyaop [Mass/Vol]1.05 mg/dLNormal0.70-1.30UnUniversity Hospitals Lake West Medical CenterComment on above:Performed By: #### [id number] ####[facility] ([facility])[address] [place], [place] [address]FZOLAMQLVP FILTRATION RATE ML/MIN/1.73 SQ M.SOXRZCUYN42.8 mL/min/1.73m*2Normal>60.0UnUniversity [facility] Comment on above:Result Comment: The [facility]???s estimated glomerular filtration rate (eGFR) will no [...] anyone group of individuals.Performed By: #### [id number] ####[facility] ([facility])[address] [address]Hgmpjcs [Mass/Vol]201 mg/qMSclo86-949VyjkavvyziUniversity Hospitals Lake West Medical CenterComment on above:Performed By: #### [id number] ####[facility] ([facility])[address] [place] [address]Ytgtqucnu [Moles/Vol]3.7 mmol/LNormal3.5-5.1UnUniversity Hospitals Lake West Medical CenterComment on above:Performed By: #### [id number] ####[facility] ([facility])[address] [place] [place] [address]Kacaww [Moles/Vol]143 mmol/L Ixaapy606-531PzrymbwlhgUniversity Hospitals Lake West Medical CenterComment on above:Performed By: #### [id number] ####[facility] ([facility])[address] [place], [place] [address]Ywdv nitrogen [Mass/Vol]25 mg/dLNormal7-25UnUniversity Hospitals Lake West Medical CenterComment on above:Performed By: #### [id number] ####[facility] ([facility])[address] [place], [place] [address]LDPW NITROGEN/CREATININE (MASS RATIO) IN SER/PLAS23.8Normal [facility] PrebleComment on above:Performed By: #### [id number] ####[facility] ([facility])[address] [place] [address]HGX WITH AUTO DIFFERENTIALon 10-46-5033Hjwimdkad (Bld) [#/Vol]0.03 10*3/uLNormal0.00-0.20 [facility] PrebleComment on above:Performed By: #### [id number] ####[facility] ([facility])[address] [place], [place] [address]Mzvdsyfch/100 WBC (Bld)0.3 %Normal0.0-1.0UnUniversity Hospitals Lake West Medical CenterComment on above: Performed By: #### [id number] ####[facility] ([facility])[address] [place], [place] [address]Mafqozixfwl (Bld) [#/Vol]0.45 10*3/uLNormal0.00-0.50 [facility] PrebleComment on above:Performed By: #### [id number] ####[facility] ([facility])[address] [place], [place] [address]Oaramgqjfcc/100 WBC (Bld)5.0 %Normal0.0-6.0UnUniversity Hospitals Lake West Medical CenterComment on above: Performed By: #### [id number] ####[facility] ([facility])[address] [place], [place] [address]Nmsxlidqqkc distribution width (RBC) [Ratio]15.5 %High 11.5-15.0UnUniversity Hospitals Lake West Medical CenterComment on above:Performed By: #### [id number] ####[facility] ([facility])[address] [place] [address] ERYTHROCYTE MEAN CORPUSCULAR HEMOGLOBIN CONCENTRATION (G/DL) BY HSDIOMKJQ10.7 g/dLLow32.0-35.0UnUniversity Hospitals Lake West Medical CenterComment on above:Performed By: #### [id number] ####[facility] ([facility])[address] [place], [place] [address]Fuogmxvhfa (Bld) [Volume fraction]49.5 %Pcuymt42.0-55.0UnUniversity Hospitals Lake West Medical CenterComment on above:Performed By: #### [id number] ####[facility] ([facility])[address] [place], [place] [address]Ggzsgqznto (Bld) [Mass/Vol]14.7 g/dL Lxgvnx08.0-17.0UnUniversity Hospitals Lake West Medical CenterComment on above:Performed By: #### [id number] ####[facility] (BEAKER)[address] [place] [address] Immature granulocytes (Bld) [#/Vol]0.05 10*3/uLNormal0.00-0.20UnUniversity Hospitals Lake West Medical CenterComment on above:Performed By: #### [id number] ####[facility] (BEAKER)[address] [place], [place] [address]Asiuvnud granulocytes/100 WBC (Bld)0.6 %Normal0.0-1.0UnUniversity Hospitals Lake West Medical CenterComment on above: Performed By: #### [id number] ####[facility] (BE[facility]ER)[address] [place] [address]Jmvbmvvznud (Bld) [#/Vol]0.93 10*3/uLLow1.20-4.00UnUniversity Hospitals Lake West Medical CenterComment on above:Performed By: #### [id number] ####[facility] (BEAKER)[address] [place] [address]Xbwnybikqkm/100 WBC (Bld) 10.4 %Low20.0-45.0UnUniversity Hospitals Lake West Medical CenterComment on above:Performed By: #### [id number] ####[facility] (BEAKER)[address] [place], [place] [address]PMC (RBC) [Entitic mass]29.2 tuGclkku65.0-33.0UnUniversity Hospitals Lake West Medical CenterComment on above:Performed By: #### [id number] ####[facility] (BEAKER)[address] [place], [place] [address]BDZ (RBC) [Entitic vol]98.2 fLHigh 82.0-98.0UnUniversity Hospitals Lake West Medical CenterComment on above:Performed By: #### [id number] ####[facility] (BE[facility]ER)[address] [place] [address] Monocytes (Bld) [#/Vol]1.06 10*3/uLHigh0.10-1.00UnUniversity Hospitals Lake West Medical CenterComment on above:Performed By: #### [id number] ####[facility] (BEAKER)[address] [place] [place], [place] [address]Uobfjutgi/100 WBC (Bld)11.9 %Normal 5.0-12.0UnUniversity Hospitals Lake West Medical CenterComment on above:Performed By: #### [id number] ####[facility] (BEAKER)[address] [place] [address] Neutrophils (Bld) [#/Vol]6.41 10*3/uLNormal1.60-7.60UnUniversity Hospitals Lake West Medical CenterComment on above:Performed By: #### [id number] ####[facility] ([facility])[address] [place] [address]Daktxoffedg/100 WBC (Bld)71.8 %Normal 40.0-72.0UnUniversity Hospitals Lake West Medical CenterComment on above:Performed By: #### [id number] ####[facility] ([facility])[address] [place] [address]ADMX (PER 100 WBCS) BY AUTOMATED COUNT0.0 %Yaiznq9KiixpdoiykUniversity Hospitals Lake West Medical Center Comment on above:Performed By: #### [id number] ####[facility] ([facility])[address] [place] [address]OGGXHUQGW (10*3/UL) IN BLOOD AUTOMATED [id number] 10*3/nRLcjytl723-823OhvshyzlxcUniversity Hospitals Lake West Medical CenterComment on above: Performed By: #### [id number] ####[facility] ([facility])[address] [place] [address]EJA (Bld) [#/Vol]5.04 10*6/uLNormal4.20-5.70UnUniversity Hospitals Lake West Medical CenterComment on above:Performed By: #### [id number] ####[facility] ([facility])[address] [place] [address]GAW (Bld) [#/Vol]8.93 10*3/uLNormal4.00-10.60UnUniversity Hospitals Lake West Medical CenterComment on above: Performed By: #### [id number] ####[facility] ([facility])[address] [place] [address]VOLJLEVkh 41-83-9318BCXMGUZImoyyfEphwoqrpec [facility] SystemMAGNESIUMon 24-59-4708Lsrmbwmpg [Mass/Vol]2.1 mg/dLNormal1.9-2.7 [facility] PrebleComment on above:Performed By: #### [id number] ####[facility] ([facility]ER)[address] [place], [place] [address]WPHSSFPACFwt 93-48-8[address]Reigjigrd [Mass/Vol]2.9 mg/dLNormal2.5-5.0UnUniversity Hospitals Lake West Medical CenterComment on above:Performed By: #### [id number] ####[facility] (BEAKER)[address] [place], [place] [address]WJLZ GLUCOSE METER UNSOLICITED RESULTS on 21-88-5527Ijiqzta [Mass/Vol]194 mg/fJFnwr62-633FbatusxwqxUniversity Hospitals Lake West Medical CenterComment on above:Order Comment: Waived Testing in the ED is performed under the ED CLIA certificate #[id number].Result Comment: jvrdmhx7Gjbvknldr By: #### [id number] ####[facility] ([facility])[address] [place] [address] Glucose [Mass/Vol]183 mg/aOUnby61-188LsgiixgizwUniversity Hospitals Lake West Medical CenterComment on above:Order Comment: Waived Testing in the ED is performed under the ED CLIA certificate #[id number].Result Comment: dijmjtp6Vvowziaqn By: #### [id number] ####[facility] (AKER)[address] [place], [place] [address]Wkkrivp [Mass/Vol]173 mg/vUVlmp75-425XkwhitqhwlUniversity Hospitals Lake West Medical CenterComment on above:Order Comment: Waived Testing in the ED is performed under the ED CLIA certificate #[id number].Result Comment: zeifsrc9Nwdpwvyum By: #### [id number] ####[facility] (BEAKER)[address] [place], [place] [address]Hjaqefb [Mass/Vol]200 mg/mCSyva23-251ZqozcwjuvpUniversity Hospitals Lake West Medical CenterComment on above:Order Comment: Waived Testing in the ED is performed under the ED CLIA certificate #[id number].Result Comment: iprxnyo4Fkermgyit By: #### [id number] ####[facility] ([facility]ER)[address] [place], [place] [address]KVWIIO CULTUREon 71-64-0805Yhbozwhfljd [Susc]<=0.5SusceptibleKettering Health Preble Comment on above:Performed By: #### [id number] ####[facility] ([facility])[address] [place], [place] [address]VFXIEoxkdn [Susc]<=1SusceptibleUnUniversity Hospitals Lake West Medical CenterComment on above:Performed By: #### [id number] ####[facility] ([facility])[address] [place], [place] [address]Nvoeisxeb [Susc]<=1Susceptible [facility] PrebleComment on above:Performed By: #### [id number] ####[facility] ([facility])[address] [place], [place] [address]Xvzlmlget [Susc] >2ResistantUnUniversity Hospitals Lake West Medical CenterComment on above:Performed By: #### [id number] ####[facility] ([facility])[address] [place] [address] Tetracycline [Susc]<=0.5SusceptibleUnUniversity Hospitals Lake West Medical CenterComment on above:Performed By: #### [id number] ####[facility] ([facility])[address] [place], [place] [address]Tipfchqtzptc+Sulfamethoxazole [Susc]<=0.5/9.5Susceptible [facility] PrebleComment on above:Performed By: #### [id number] ####[facility] ([facility])[address] [place], [place] [address]Ohmxezxcbr [Susc]<=0.5SusceptibleUnUniversity Hospitals Lake West Medical CenterComment on above: Performed By: #### [id number] ####[facility] ([facility])[address] [place], [place] [address]KPVQUFBHEXSIFgf 53-67-7655YXWWYIO?unknownNormalUniversKettering Health Greene MemorialComment on above:Performed By: #### [id number] ####[facility] ([facility])[address] [place], [place] [address]Sgroubvuv [Mass/Vol]154 mg/yNHxnp45-579MtyziaileaUniversity Hospitals Lake West Medical CenterComment on above:Result Comment: TRIGLYCERIDE REFERENCE RANGE:20 YEARS AND OLDER CARDIOVASCULAR RISKLESS THAN 150 mg/dL LOW CQUU317 TO 199 mg/dL BORDERLINE OFRD904 mg/dL AND GREATER HIGH RISKPerformed By: #### [id number] ####[facility] (BEAKER)[address] [place], [place] [address]32qf 76-24-770387AyvrymGdldhuylgc of [facility] ANTI-XA (HEPARIN LEVEL)on 51-47-4550UCVOOSX UNFRACTIONATED (U/ML) IN PPP BY CHROMOGENIC METHOD0.86 IU/mLHigh0.3-0.7UnUniversity Hospitals [facility] Center Comment on above:Result Comment: Rivaroxaban and Apixaban will interfere with the anti Xa assay used to monitor UFH and LMWH.Performed By: #### [id number] ####[facility] ([facility])[address] [place], [place] [address]PBSLBYA UNFRACTIONATED (U/ML) IN PPP BY CHROMOGENIC METHOD>1.00Critically high0.3-0.7 [facility] PrebleComment on above:Result Comment: Rivaroxaban and Apixaban will interfere with the anti Xa assay used to monitor UFH and LMWH. Performed By: #### [id number] ####[facility] ([facility])[address] [place], [place] [address]ELPKYRU UNFRACTIONATED (U/ML) IN PPP BY CHROMOGENIC METHOD >1.00Critically high0.3-0.7UnUniversity Hospitals Lake West Medical CenterComment on above: Performed By: #### [id number] ####[facility] ([facility])[address] [facility], [place] [address]AVMMfg 48-87-4548RAFVBIWOM PARTIAL THROMBOPLASTIN TIME IN PPP BY COAGULATION ASSAY99.6 BmwxdyxKpvu64.0-35.0UnUniversity Hospitals Lake West Medical CenterComment on above:Result Comment: Clinical significance of the APTT is questionable in the presence of heparin.Performed By: #### [id number] ####[facility] ([facility])[address] [facility], [place] [address]TJYCRQPZZ PARTIAL THROMBOPLASTIN TIME IN PPP BY COAGULATION ASSAY98.9 WjyjcemTfvx62.0-35.0 [facility] PrebleComment on above:Result Comment: Clinical significance of the APTT is questionable in the presence of heparin.Performed By: #### [id number] ####[facility] ([facility])[address] [place] [address] B-TYPE NATRIURETIC PEPTIDEon 63-11-8376Jofrctkqjaz peptide B (Bld) [Mass/Vol]75 pg/mLNormal0-100UnUniversity Hospitals Lake West Medical CenterComment on above:Performed By: #### [id number] ####[facility] ([facility])[address] [place] [address] BASIC METABOLIC PANELon 44-90-8907Zqbue gap [Moles/Vol]9 mmol/LNormal7-20 [facility]bleComment on above:Performed By: #### [id number] ####[facility] ([facility])[address] [place] [address]Aveimkx [Mass/Vol]8.8 mg/dLNormal8.6-10.3UnUniversity Hospitals Lake West Medical CenterComment on above:Performed By: #### [id number] ####[facility] ([facility])[address] [place] [address]Fhbxjfgz [Moles/Vol]97 mmol/EIdj57-358CvjvlprptbUniversity Hospitals Lake West Medical CenterComment on above:Performed By: #### [id number] ####[facility] ([facility])[address] [place] [address]IF8 [Moles/Vol]45 mmol/LCritically hfqq94-42TbbiavlhwkUniversity Hospitals Lake West Medical CenterComment on above:Performed By: #### [id number] ####[facility] ([facility])[address] [place], [place] [address]Qhuukfxjgu [Mass/Vol]0.93 mg/dLNormal0.70-1.30UnUniversity Hospitals Lake West Medical CenterComment on above:Performed By: #### [id number] ####[facility] ([facility])[address] [place], [place] [address]XZIVBMXJEZ FILTRATION RATE ML/MIN/1.73 SQ M.PVJNCXFXE78.1 mL/min/1.73m*2Normal>60.0UnUniversity Hospitals Lake West Medical CenterComment on above: Result Comment: The [facility]???s estimated glomerular filtration rate (eGFR) will no [...] anyone group of individuals.Performed By: #### [id number] ####[facility] ([facility])[address] [place], [place] [address]Nflfrvv [Mass/Vol]190 mg/bQKudg52-920OizbgrxxooUniversity Hospitals Lake West Medical CenterComment on above:Performed By: #### [id number] ####[facility] ([facility])[address] [place], [place] [address]Pvpnghrud [Moles/Vol]3.5 mmol/L Normal3.5-5.1UnUniversity Hospitals Lake West Medical CenterComment on above:Performed By: #### [id number] ####[facility] ([facility])[address] [place] [address] Sodium [Moles/Vol]147 mmol/WAjpc462-092ZegylhfalmUniversity Hospitals Lake West Medical Center Comment on above:Performed By: #### [id number] ####[facility] ([facility])[address] [place], [place] [address]Cnuc nitrogen [Mass/Vol]28 mg/dLHigh7-25UnUniversity Hospitals Lake West Medical CenterComment on above:Performed By: #### [id number] ####[facility] ([facility])[address] [place], [place] [address]FXJR NITROGEN/CREATININE (MASS RATIO) IN SER/PLAS30.1NormalUnUniversity Hospitals Lake West Medical CenterComment on above:Performed By: #### [id number] ####[facility] ([facility])[address] [place] [address]SRI WITH AUTO DIFFERENTIALon [id number] (Bld) [#/Vol]0.02 10*3/uLNormal0.00-0.20UnUniversity Hospitals Lake West Medical CenterComment on above:Performed By: #### [id number] ####[facility] ([facility])[address] [place], [place] [address]Jgxscrgam/100 WBC (Bld)0.2 %Normal0.0-1.0UnUniversity Hospitals Lake West Medical CenterComment on above:Performed By: #### [id number] ####[facility] ([facility])[address] [place] [place] [facility] [place] [address]Owfvznsqijp (Bld) [#/Vol]0.20 10*3/uL Normal0.00-0.50UnUniversity Hospitals Lake West Medical CenterComment on above:Performed By: #### [id number] ####[facility] [facility] ([facility])[address] [place] [address] Eosinophils/100 WBC (Bld)2.4 %Normal0.0-6.0UnUniversity Hospitals [facility] Center Comment on above:Performed By: #### [id number] ####[facility] ([facility])[address] [place], [place] [address]Wzorpxvlmsf distribution width (RBC) [Ratio]15.3 % High11.5-15.0UnUniversity Hospitals Lake West Medical CenterComment on above:Performed By: #### [id number] ####[facility] ([facility])[address] [place] [address] ERYTHROCYTE MEAN CORPUSCULAR HEMOGLOBIN CONCENTRATION (G/DL) BY GOUIVHXVD93.0 g/dLLow32.0-35.0UnUniversity Hospitals Lake West Medical CenterComment on above:Performed By: #### [id number] ####[facility] ([facility])[address] [facility] [place] [address]Vcjhhpeoxo (Bld) [Volume fraction]49.7 %Hxaqsu62.0-55.0UnUniversity Hospitals Lake West Medical CenterComment on above:Performed By: #### [id number] ####[facility] (BEAKER)[address] [place], [place] [address]Zqeefmxfpc (Bld) [Mass/Vol]14.9 g/dL Kyhhfp44.0-17.0UnUniversity Hospitals Lake West Medical CenterComment on above:Performed By: #### [id number] ####[facility] ([facility])[address] [place] [address] Immature granulocytes (Bld) [#/Vol]0.04 10*3/uLNormal0.00-0.20UnUniversity Hospitals Lake West Medical CenterComment on above:Performed By: #### [id number] ####[facility] ([facility])[address] [place], [place] [address]Nmlcfxnv granulocytes/100 WBC (Bld)0.5 %Normal0.0-1.0UnUniversity Hospitals Lake West Medical CenterComment on above: Performed By: #### [id number] ####[facility] ([facility])[address] [place], [place] [address]Frtcusnotzm (Bld) [#/Vol]0.87 10*3/uLLow1.20-4.00UnUniversity Hospitals Lake West Medical CenterComment on above:Performed By: #### [id number] ####[facility] ([facility])[address] [place], [place] [address]Vcdlwbwqwhb/100 WBC (Bld) 10.5 %Low20.0-45.0UnUniversity Hospitals Lake West Medical CenterComment on above:Performed By: #### [id number] ####[facility] ([facility])[address] [place], [place] [address]JOU (RBC) [Entitic mass]29.0 ivSgrzmt19.0-33.0UnUniversity Hospitals Lake West Medical CenterComment on above:Performed By: #### [id number] ####[facility] (BEAKER)[address] [place], [place] [address]EAV (RBC) [Entitic vol]96.9 fLNormal 82.0-98.0UnUniversity Hospitals Lake West Medical CenterComment on above:Performed By: #### [id number] ####[facility] ([facility])[address] [place] [address] Monocytes (Bld) [#/Vol]1.21 10*3/uLHigh0.10-1.00UnUniversity Hospitals Lake West Medical CenterComment on above:Performed By: #### [id number] ####[facility] ([facility])[address] [place] [address]Ptgfnusck/100 WBC (Bld)14.6 %High 5.0-12.0UnUniversity Hospitals Lake West Medical CenterComment on above:Performed By: #### [id number] ####[facility] ([facility])[address] [place] [address] Neutrophils (Bld) [#/Vol]5.97 10*3/uLNormal1.60-7.60UnUniversity Hospitals Lake West Medical CenterComment on above:Performed By: #### [id number] ####[facility] ([facility])[address] [place] [address]Mwvtskeizuj/100 WBC (Bld)71.8 %Normal 40.0-72.0UnUniversity Hospitals Lake West Medical CenterComment on above:Performed By: #### [id number] ####[facility] ([facility])[address] [place] [address]VZAN (PER 100 WBCS) BY AUTOMATED COUNT0.0 %Ngwqfb1JtikfeyfqrUniversity Hospitals Lake West Medical Center Comment on above:Performed By: #### [id number] ####[facility] ([facility])[address] [place], [place] [address]XDTENSJSJ (10*3/UL) IN BLOOD AUTOMATED DGDQM224 10*3/aGBogrsj894-085LhmcevomexUniversity Hospitals Lake West Medical CenterComment on above: Performed By: #### [id number] ####[facility] ([facility])[address] [place], [place] [address]TTC (Bld) [#/Vol]5.13 10*6/uLNormal4.20-5.70UnUniversity Hospitals Lake West Medical CenterComment on above:Performed By: #### [id number] ####[facility] ([facility])[address] [place] [address]HJN (Bld) [#/Vol]8.31 10*3/uLNormal4.00-10.60UnUniversity Hospitals Lake West Medical CenterComment on above: Performed By: #### [id number] ####[facility] ([facility])[address] [place] [address]RNSCBFYGZfr 29-05-7909Bumojwifo [Mass/Vol]2.2 mg/dLNormal 1.9-2.7UnUniversity Hospitals Lake West Medical CenterComment on above:Performed By: #### [id number] ####[facility] ([facility])[address] [place] [address]Scnbengld [Mass/Vol]1.8 mg/dLLow1.9-2.7UnUniversity Hospitals Lake West Medical CenterComment on above:Performed By: #### [id number] ####[facility] ([facility])[address] [place], [place] [address]Hrqybryou [Mass/Vol]1.6 mg/dLLow1.9-2.7UnUniversity Hospitals Lake West Medical CenterComment on above:Performed By: #### [id number] ####[facility] ([facility])[address] [place] [address]QYFRQQBNYCyo 14-15-3739Jcwczjsaf [Mass/Vol]3.2 mg/dLNormal2.5-5.0UnUniversity Hospitals Lake West Medical CenterComment on above:Performed By: #### [id number] ####[facility] ([facility])[address] [place], [place] [address]IJRD GLUCOSE METER UNSOLICITED RESULTSon 02-19-6298Wexfxid [Mass/Vol]184 mg/yRIouf74-736RdvtlbwdepUniversity Hospitals Lake West Medical CenterComment on above:Order Comment: Waived Testing in the ED is performed under the ED CLIA certificate #[id number].Result Comment: [id number] By: #### [id number] ####[facility] ([facility])[address] [place] [address]Xpcwyqg [Mass/Vol]191 mg/eRRvgz05-617EoqagyhlrvUniversity Hospitals Lake West Medical CenterComment on above:Order Comment: Waived Testing in the ED is performed under the ED CLIA certificate #[id number].Result Comment: [id number] By: #### [id number] ####[facility] ([facility])[address] [place] [address]XLNHBKMZRbb 57-37-2588Fxqmwtidz [Moles/Vol]3.8 mmol/LNormal3.5-5.1UnUniversity Hospitals Lake West Medical CenterComment on above:Performed By: #### [id number] ####[facility] ([facility])[address] [place] [address]Goocwdekl [Moles/Vol]3.7 mmol/LNormal 3.5-5.1UnUniversity Hospitals Lake West Medical CenterComment on above:Performed By: #### [id number] ####[facility] ([facility])[address] [place] [address] PROTIME-INRon 58-81-5826IDZ IN PPP BY COAGULATION ASSAY1.54Bjjm7.90-1.10 [facility] PrebleComment on above:Result Comment: [facility] RECOMMENDED INR FOR WARFARIN THERAPY CONDITION INRPROPHYLAXIS OF VENOUS THROMBOSIS 2-3(HIGH-RISK SURGERY)TREATMENT OF VENOUS THROMBOSIS 2-3TREATMENT OF PULMONARY EMBOLISM 2-3PREVENTION OF SYSTEMIC EMBOLISM: 2-3 ACUTE MYOCARDIAL INFARCTION TISSUE HEART VALVES VALVULAR HEART DISEASE ATRIAL FIBRILLATION RECURRENT SYSTEMIC EMBOLISMMECHANICAL HEART VALVE 2.5-3.5 FROM: ORAL ANTICOAGULANTS. MECHANISM OF ACTION, CLINICAL EFFECTIVENESS, AND OPTIMAL THERAPE UTIC RANGE. CHEST 1995;108:231S-246S.Performed By: #### [id number] ####[facility] ([employer] [facility])[address] [place], [place] [address]ZTVIVSHCXCT TIME (PT) IN PPP BY COAGULATION ASSAY15.0 StrtyzhJute71.3-14.8UnUniversity Hospitals Lake West Medical CenterComment on above:Performed By: #### [id number] ####[facility] ([facility])[address] [place], [place] [address]JIJ IN PPP BY COAGULATION ASSAY1.19 High0.90-1.10UnUniversity Hospitals Lake West Medical CenterComment on above:Result Comment: [facility] RECOMMENDED INR FOR WARFARIN THERAPY CONDITION INRPROPHYLAXIS OF VENOUS THROMBOSIS 2-3(HIGH-RISK SURGERY)TREATMENT OF VENOUS THROMBOSIS 2-3TREATMENT OF PULMONARY EMBOLISM 2-3PREVENTION OF SYSTEMIC EMBOLISM: 2-3 ACUTE MYOCARDIAL INFARCTION TISSUE HEART VALVES VALVULAR HEART DISEASE ATRIAL FIBRILLATION RECURRENT SYSTEMIC EMBOLISMMECHANICAL HEART VALVE 2.5-3.5 FROM: ORAL ANTICOAGULANTS. MECHANISM OF ACTION, CLINICAL EFFECTIVENESS, AND OPTIMAL THERAPE UTIC RANGE. CHEST 1995;108:231S-246S.Performed By: #### [id number] ####[facility] ([employer] [facility])[address] [place], [place] [address]QFXOEGMBVTR TIME (PT) IN PPP BY COAGULATION ASSAY15.1 QwxhzukCvlw21.3-14.8UnUniversity Hospitals Lake West Medical CenterComment on above:Performed By: #### [id number] ####[facility] ([facility])[address] [place] [address]MVMINGCLAKDSCiw 20-84-4192LMUUKPQ? UnknownNormalUniversKettering Health Greene MemorialComment on above:Performed By: #### [id number] ####[facility] ([facility])[address] [place] [address] Magnesium [Mass/Vol]119 mg/yAZflphb87-707ZefioiodiuUniversity Hospitals Lake West Medical Center Comment on above:Result Comment: TRIGLYCERIDE REFERENCE RANGE:20 YEARS AND OLDER CARDIOVASCULAR RISKLESS THAN 150 mg/dL LOW MCEF397 TO 199 mg/dL BORDERLINE RXIZ212 mg/dL AND GREATER HIGH RISKPerformed By: #### [id number] ####[facility] ([facility])[address] [place] [address]YLVZAELX Ion 78-52-2863Viqcuwgy I.cardiac [Mass/Vol]0.04 ng/mLNormal0.00-0.04Un[facility] Comment on above:Performed By: #### [id number] ####[facility] ([facility])[address] [place], [place] [address]Altnxtli I.cardiac [Mass/Vol]0.04 ng/mLNormal 0.00-0.04UnUniversity Hospitals Lake West Medical CenterComment on above:Performed By: #### [id number] ####[facility] ([facility])[address] [place] [address] VANCOMYCIN, TROUGHon 03-10-7125HNSDJDNRPC (UG/ML) IN SER/PLAS - QTULQJ24.6 ug/mL Critically high5.0-20.0UnUniversity Hospitals Lake West Medical CenterComment on above: Performed By: #### [id number] ####[facility] ([facility])[address] [place], [place] [address]JUXKG METABOLIC PANELon 52-67-7553Buxzu gap [Moles/Vol]11 mmol/LNormal 7-20UnUniversity Hospitals Lake West Medical CenterComment on above:Performed By: #### [id number] ####[facility] ([facility])[address] [place], [place] [address]Qrugthp [Mass/Vol]8.9 mg/dLNormal8.6-10.3UnUniversity Hospitals Lake West Medical CenterComment on above:Performed By: #### [id number] ####[facility] ([facility])[address] [place] [address]Vzsqnftp [Moles/Vol]99 mmol/GUwsskc64-116IswlhulgroUniversity Hospitals Lake West Medical CenterComment on above:Performed By: #### [id number] ####[facility] ([facility])[address] [place] [address]AH8 [Moles/Vol]38 mmol/BWohs47-49 [facility] PrebleComment on above:Performed By: #### [id number] ####[facility] ([facility])[address] [place] [address]Xqstqpvjig [Mass/Vol]1.10 mg/dLNormal0.70-1.30UnUniversity Hospitals Lake West Medical CenterComment on above:Performed By: #### [id number] ####[facility] ([facility])[address] [place] [address]WJYZCORQIM FILTRATION RATE ML/MIN/1.73 SQ M.PAMYGHRCR32.5 mL/min/1.73m*2Normal>60.0UnUniversity Hospitals Lake West Medical CenterComment on above: Result Comment: [facility]???s estimated glomerular filtration rate (eGFR) will no [...] anyone group of individuals.Performed By: #### [id number] ####[facility] ([facility])[address] [place] [address]Ufhzlqk [Mass/Vol]202 mg/sPJrzn22-100GvpppynkluUniversity Hospitals Lake West Medical CenterComment on above:Performed By: #### [id number] ####[facility] (BEAKER)[address] [place] [address]Kcljsyocx [Moles/Vol]3.3 mmol/L Low3.5-5.1UnUniversity Hospitals Lake West Medical CenterComment on above:Performed By: #### [id number] ####[facility] [address]Rxathm [Moles/Vol]145 mmol/ISxpepl177-782RxrmpqtyofUniversity Hospitals Lake West Medical CenterComment on above:Performed By: #### [id number] ####[facility] [place], [place] [address]Takf nitrogen [Mass/Vol]38 mg/dLHigh7-25UnUniversity Hospitals Lake West Medical CenterComment on above:Performed By: #### [id number] ####[facility] ([facility])[address] [place], [place] [address]YDYY NITROGEN/CREATININE (MASS RATIO) IN SER/PLAS34.5NormalUniversKettering Health Greene MemorialComment on above: Performed By: #### [id number] ####[facility] ([facility])[address] [place], [place] [address]CXQNJHW, IONIZEDon 14-50-8603WTZDFCA IONIZED (MMOL/L) IN BLOODNormal [facility] PrebleComment on above:Result Comment: C^IncalculablePerformed By: #### CALCIUM, IONIZED ####[facility] RESPIRAT[facility] [id number] [place] [address] USACBC WITH AUTO DIFFERENTIALon 31-33-7637Icmyzmnoxny distribution width (RBC) [Ratio]15.1 %High11.5-15.0 [facility] PrebleComment on above:Performed By: #### [id number] ####[facility] [place], [place] [address]JSXXWQAPBUH MEAN CORPUSCULAR HEMOGLOBIN CONCENTRATION (G/DL) BY VJKUJEFKE60.9 g/dLLow32.0-35.0 [facility] PrebleComment on above:Performed By: #### [id number] ####[facility] (BEAKER)[address] [place] [address]Aigmzltcky (Bld) [Volume fraction]52.1 %Ulucph33.0-55.0UnUniversity [facility]als [facility] Center Comment on above:Performed By: #### [id number] ####[facility] (BEAKER)[address] [place] [address]Iskivhfwzr (Bld) [Mass/Vol]16.1 g/pFUiekze68.0-17.0 [facility]bleComment on above:Performed By: #### [id number] ####[facility] (AKER)[address] [place] [address]UIT (RBC) [Entitic mass]29.4 ltSozqjh00.0-33.0UnUniversity Hospitals Lake West Medical CenterComment on above:Performed By: #### [id number] ####[facility] ([facility])[address] [place] [address]RVB (RBC) [Entitic vol]95.1 jNUynjuf18.0-98.0UnUniversity Hospitals Lake West Medical CenterComment on above:Performed By: #### [id number] ####[facility] ([facility])[address] [place] [address]SKGB (PER 100 WBCS) BY AUTOMATED COUNT0.0 %Xgxzji0GagbfznlmtUniversity Hospitals Lake West Medical CenterComment on above: Performed By: #### [id number] ####[facility] [place] [address]YCOEZRBEK (10*3/UL) IN BLOOD AUTOMATED [id number] 10*3/uLNormal 150-400UnUniversity Hospitals Lake West Medical CenterComment on above:Performed By: #### [id number] ####[facility] (BEAKER)[address] [place] [address]NKB (Bld) [#/Vol]5.48 10*6/uLNormal4.20-5.70Un[facility]als [facility] Comment on above:Performed By: #### [id number] ####[facility] ([facility] [place] [address]TZF (Bld) [#/Vol]9.57 10*3/uLNormal4.00-10.60 [facility]bleComment on above:Performed By: #### [id number] ####[facility] ([facility])[address] [place], [place] [address]XIXYGCFmh 67-98-3515WGOTHFLJrccbgRxtjeahxlu of [facility] Medical CenterCONSULTNormal [facility] PrebleCTA CHEST W IV CONTRASTon 95-67-7729CJC CHEST W IV CONTRASTInvalid Interpretation CodeUnUniversity Hospitals [facility] Center MAGNESIUMon 29-98-1198Nausdtdif [Mass/Vol]1.9 mg/dLNormal1.9-2.7UnUniversity Hospitals Lake West Medical CenterComment on above:Performed By: #### [id number] ####[facility] ([facility])[address] [place], [place] [address]Ufeprflxr [Mass/Vol]1.7 mg/dLLow1.9-2.7UnUniversity Hospitals Lake West Medical CenterComment on above:Performed By: #### [id number] ####[facility] ([facility])[address] [place] [address] MANUAL DIFFERENTIALon 84-14-6928BOYIBZEKA (10*3/UL) IN BLOOD BY CALCULATION0.02 10*3/uLNormal0.00-0.20UnUniversity Hospitals Lake West Medical CenterComment on above: Performed By: #### [id number] ####[facility] ([facility])[address] [place], [place] [address]NRCWUEPBH/100 LEUKOCYTES IN BLOOD BY AUTOMATED COUNT0.2 % Normal0.0-1.0UnUniversity Hospitals Lake West Medical CenterComment on above:Performed By: #### [id number] ####[facility] ([facility])[address] [place] [address] EOSINOPHILS (10*3/UL) IN BLOOD BY CALCULATION0.10 10*3/uLNormal0.00-0.50 [facility]bleComment on above:Performed By: #### [id number] ####[facility] ([facility])[address] [place], [place] [address]QKWDOPABBQW/100 LEUKOCYTES IN BLOOD BY AUTOMATED COUNT1.0 %Normal0.0-6.0UnUniversity Hospitals Lake West Medical CenterComment on above:Performed By: #### [id number] ####[facility] ([facility])[address] [place], [place] [address]BVSDSTIJ GRANULOCYTES (10*3/UL) IN BLOOD BY CALCULATION0.06 10*3/uLNormal0.00-0.20UnUniversity Hospitals Lake West Medical CenterComment on above:Performed By: #### [id number] ####[facility] ([facility])[address] [place], [place] [address]GLEZYAXP GRANULOCYTES/100 LEUKOCYTES IN BLOOD BY AUTOMATED COUNT0.6 %Normal0.0-1.0Un[facility] Comment on above:Performed By: #### [id number] ####[facility] ([facility])[address] [place], [place] [address]TWLKCLQGKFB (10*3/UL) IN BLOOD BY CALCULATION0.73 10*3/uLLow1.20-4.00UnUniversity Hospitals Lake West Medical CenterComment on above:Performed By: #### [id number] ####[facility] ([facility])[address] [place], [place] [address]GCBXHWTOJNB/100 LEUKOCYTES IN BLOOD BY AUTOMATED COUNT7.6 %Low20.0-45.0 [facility]bleComment on above:Performed By: #### [id number] ####[facility] ([facility])[address] [place], [place] [address]WBALVNSLR (10*3/UL) IN BLOOD BY CALCUATION1.52 10*3/uLHigh0.10-1.00UnUniversity Hospitals Lake West Medical CenterComment on above:Performed By: #### [id number] ####[facility] ([facility])[address] [place], [place] [address]RBEXKETEA/100 LEUKOCYTES IN BLOOD BY AUTOMATED COUNT15.9 %High5.0-12.0UnUniversity Hospitals Lake West Medical CenterComment on above:Performed By: #### [id number] ####[facility] ([facility])[address] [place] [address]CMYVUMYZTEC (10*3/UL) IN BLOOD BY CALCULATION7.1 10*3/uL Normal1.6-7.6UnUniversity Hospitals Lake West Medical CenterComment on above:Performed By: #### [id number] ####[facility] ([facility])[address] [place] [address] NEUTROPHILS/100 LEUKOCYTES IN BLOOD BY AUTOMATED COUNT74.7 %High40.0-72.0 [facility] PrebleComment on above:Performed By: #### [id number] ####[facility] ([facility])[address] [place] [address]JQQYAHBXSLvn 71-57-3825Igozgjena [Mass/Vol]3.8 mg/dLNormal2.5-5.0UnUniversity Hospitals Lake West Medical CenterComment on above:Performed By: #### [id number] ####[facility] ([facility])[address] [place] [address]Jlvxeoliw [Mass/Vol]1.8 mg/dLLow 2.5-5.0UnUniversity Hospitals Lake West Medical CenterComment on above:Performed By: #### [id number] ####[facility] ([facility])[address] [place] [address]PAAG GLUCOSE METER UNSOLICITED RESULTSon 35-55-8831Gsesnyf [Mass/Vol]189 mg/dLHigh 70-105UnUniversity Hospitals Lake West Medical CenterComment on above:Order Comment: Waived Testing in the ED is performed under the ED CLIA certificate #[id number].Result Comment: ljonesPerformed By: #### [id number] ####[facility] ([facility])[address] [place] [address]Elazsln [Mass/Vol]205 mg/pZJupa70-006LzaqifkhydUniversity Hospitals Lake West Medical CenterComment on above:Order Comment: Waived Testing in the ED is performed under the ED CLIA certificate #[id number].Result Comment: rgill Performed By: #### [id number] ####[facility] (BEAKER)[address] [place], [place] [address]Evtmpbv [Mass/Vol]200 mg/kGFxug07-042VbamtuhvgjUniversity Hospitals Lake West Medical CenterComment on above:Order Comment: Waived Testing in the ED is performed under the ED CLIA certificate #[id number].Result Comment: [email or web address] Performed By: #### [id number] ####[facility] (BEAKER)[address] [place], [place] [address]Jjsotbs [Mass/Vol]207 mg/vFOjzf36-291IsmfrtrhpgUniversity Hospitals Lake West Medical CenterComment on above:Order Comment: Waived Testing in the ED is performed under the ED CLIA certificate #[id number].Result Comment: oyoder Performed By: #### [id number] ####[facility] (AKER)[address] [place], [place] [address]EXDNIQHMMgj 72-84-4273Dpvkatutc [Moles/Vol]3.3 mmol/LLow 3.5-5.1UnUniversity Hospitals Lake West Medical CenterComment on above:Performed By: #### [id number] ####[facility] ([facility])[address] [place], [place] [address]Gcfzjhhwp [Moles/Vol]3.5 mmol/LNormal3.5-5.1UnUniversity Hospitals Lake West Medical CenterComment on above:Performed By: #### [id number] ####[facility] (BEAKER)[address] [place], [place] [address]ICVNPUZLA, WHOLE BLOODon 27-57-1213Mrezjxpvv [Moles/Vol]3.5 mmol/LNormal3.5-5.1UnUniversity Hospitals Lake West Medical CenterComment on above:Performed By: #### POTASSIUM, WHOLE BLOOD ####[facility]PIRAT[facility] [id number] [place] [address] USASODIUM, WHOLE BLOODon 71-10-7672VQVQSU, WHOLE BLOODNormal [facility] PrebleComment on above:Result Comment: C^IncalculablePerformed By: #### SODIUM, WHOLE BLOOD ####[facility] RESPIRATORY [id number] [place] [address] USATRIGLYCERIDESon 97-25-0057NQMQWEL? UnknownNormalUniTrinity Health System East CampusComment on above:Performed By: #### [id number] ####[facility] (BEAKER)[address] [place] [place] [address] Magnesium [Mass/Vol]243 mg/aMWxza07-767SpvtpwifznUniversity Hospitals Lake West Medical Center Comment on above:Result Comment: TRIGLYCERIDE REFERENCE RANGE:20 YEARS AND OLDER CARDIOVASCULAR RISKLESS THAN 150 mg/dL LOW PXQM211 TO 199 mg/dL BORDERLINE VYYL660 mg/dL AND GREATER HIGH RISKPerformed By: #### [id number] ####[facility] ([facility])[address] [place], [place] [address]bj [id number] of [place] [facility] Ekankz47IunsfcGiviqoqigdKettering Health Greene MemorialBLOOD CULTURE on 04-13-3166Kyizkimz identified Cx Nom (Bld)No growth at 5 daysNoalUniTrinity Health System East CampusComment on above:Order Comment: From a different site than #1.Performed By: #### [id number] ####[facility] (BEAKER)[address] [place], [place] [address]Tzfdkmzot Auto (Bld) [#/Vol]on 52-04-6254Rjnicialo (Bld) [#/Vol]Automated basophil count0.0-0.1FSelect Medical Specialty Hospital - [facility] South Basophils/100 WBC Auto (Bld)on 12-28-0467Webejfsdn/100 WBC (Bld)Automated basophil %Low0.2-2.0[facility] HospitalCALCIUM, IONIZEDon 54-66-0753KTNTXYO IONIZED (MMOL/L) IN BLOOD1.23 mmol/LNormal1.15-1.33UnUniversity Hospitals Lake West Medical CenterComment on above:Performed By: #### CALCIUM, IONIZED ####[facility] RESPIRATORY [id number] [place] [address] USACBC WITH AUTO DIFFERENTIALon 05-71-0937Afwjmzovw (Bld) [#/Vol]0.01 10*3/uLNormal0.00-0.20 [facility] PrebleComment on above:Performed By: #### [id number] ####[facility] (BEAKER)[address] [place], [place] [address]Pmygxkifr/100 WBC (Bld)0.1 %Normal0.0-1.0UnUniversity Hospitals Lake West Medical CenterComment on above: Performed By: #### [id number] ####[facility] (BEAKER)[address] [place], [place] [address]Fnwszyyeixj (Bld) [#/Vol]0.01 10*3/uLNormal0.00-0.50 [facility] PrebleComment on above:Performed By: #### [id number] ####[facility] (BEAKER)[address] [place], [place] [address]Eqnlcucwqny/100 WBC (Bld)0.1 %Normal0.0-6.0UnUniversity Hospitals Lake West Medical CenterComment on above: Performed By: #### [id number] ####[facility] (AKER)[address] [place], [place] [address]Hbrmcbzzrte distribution width (RBC) [Ratio]15.2 %High 11.5-15.0UnUniversity Hospitals Lake West Medical CenterComment on above:Performed By: #### [id number] ####[facility] (BEAKER)[address] [place] [address] ERYTHROCYTE MEAN CORPUSCULAR HEMOGLOBIN CONCENTRATION (G/DL) BY YRPPBDONS04.8 g/qDEfrcwt84.0-35.0UnUniversity Hospitals Lake West Medical CenterComment on above:Performed By: #### [id number] ####[facility] (BEAKER)[address] [place], [place] [address]Coqtlglhtc (Bld) [Volume fraction]47.1 %Sixsjs88.0-55.0UnUniversity Hospitals Lake West Medical CenterComment on above:Performed By: #### [id number] ####[facility] (BEAKER)[address] [place], [place] [address]Rtffceonfh (Bld) [Mass/Vol]15.9 g/dL Ubbopk43.0-17.0UnUniversity Hospitals Lake West Medical CenterComment on above:Performed By: #### [id number] ####[facility] ([facility])[address] [place] [address] Immature granulocytes (Bld) [#/Vol]0.05 10*3/uLNormal0.00-0.20UnUniversity Hospitals Lake West Medical CenterComment on above:Performed By: #### [id number] ####[facility] ([facility])[address] [place], [place] [address]Ouubgase granulocytes/100 WBC (Bld)0.7 %Normal0.0-1.0UnUniversity Hospitals Lake West Medical CenterComment on above: Performed By: #### [id number] ####[facility] ([facility])[address] [place], [place] [address]Rxobunnvove (Bld) [#/Vol]0.54 10*3/uLLow1.20-4.00UnUniversity Hospitals Lake West Medical CenterComment on above:Performed By: #### [id number] ####[facility] ([facility])[address] [place], [place] [address]Tduiqgzgqlk/100 WBC (Bld) 7.2 %Low20.0-45.0UnUniversity Hospitals Lake West Medical CenterComment on above:Performed By: #### [id number] ####[facility] ([facility])[address] [place], [place] [address]EPY (RBC) [Entitic mass]31.8 bbPonupl22.0-33.0UnUniversity Hospitals Lake West Medical CenterComment on above:Performed By: #### [id number] ####[facility] ([facility])[address] [place], [place] [address]HKR (RBC) [Entitic vol]94.2 fLNormal 82.0-98.0UnUniversity Hospitals Lake West Medical CenterComment on above:Performed By: #### [id number] ####[facility] ([facility] [place] [address] Monocytes (Bld) [#/Vol]1.23 10*3/uLHigh0.10-1.00UnUniversity Hospitals Lake West Medical CenterComment on above:Performed By: #### [id number] ####[facility] (BEAKER)[address] [place] [address]Wysexmfuw/100 WBC (Bld)16.3 %High 5.0-12.0UnUniversity Hospitals Lake West Medical CenterComment on above:Performed By: #### [id number] ####[facility] (BEAKER)[address] [place] [address] Neutrophils (Bld) [#/Vol]5.70 10*3/uLNormal1.60-7.60UnUniversity Hospitals Lake West Medical CenterComment on above:Performed By: #### [id number] ####[facility] ([facility])[address] [place] [address]Zapjigwiizb/100 WBC (Bld)75.6 %High 40.0-72.0UnUniversity Hospitals Lake West Medical CenterComment on above:Performed By: #### [id number] ####[facility] ([facility])[address] [place] [address]QXYD (PER 100 WBCS) BY AUTOMATED COUNT0.3 %Uwyk2MojqgthdfzUniversity Hospitals Lake West Medical Center Comment on above:Performed By: #### [id number] ####[facility] (BEAKER)[address] [place] [address]KERDOOSZH (10*3/UL) IN BLOOD AUTOMATED HIBXQ970 10*3/tYWbxaxr572-156FuaqhkisrgUniversity Hospitals Lake West Medical CenterComment on above: Performed By: #### [id number] ####[facility] (BEAKER)[address] [place] [address]SNA (Bld) [#/Vol]5.00 10*6/uLNormal4.20-5.70UnUniversity Hospitals Lake West Medical CenterComment on above:Performed By: #### [id number] ####[facility] (BEAKER)[address] [place], [place] [address]ZMY (Bld) [#/Vol]7.54 10*3/uLNormal4.00-10.60UnUniversity Hospitals Lake West Medical CenterComment on above: Performed By: #### [id number] ####[facility] ([facility])[address] [place], [place] [address]EJMWWXMCDACSY METABOLIC PANELon 67-78-7811Vrigvfd [Mass/Vol] 2.9 g/dLLow3.5-5.7UnUniversity Hospitals Lake West Medical CenterComment on above:Performed By: #### [id number] ####[facility] ([facility])[address] [place] [address] ALP [Catalytic activity/Vol]58 U/CKkwldb63-892OtpcwfzygcUniversity Hospitals Lake West Medical CenterComment on above:Performed By: #### [id number] ####[facility] ([facility])[address] [place], [place] [address]FRY [Catalytic activity/Vol]21 U/L Normal7-52UnUniversity Hospitals Lake West Medical CenterComment on above:Performed By: #### [id number] ####[facility] ([facility])[address] [place], [place] [address]Epqoe gap [Moles/Vol]13 mmol/LNormal7-20UnUniversity Hospitals Lake West Medical CenterComment on above:Performed By: #### [id number] ####[facility] ([facility])[address] [place], [place] [address]JIZ [Catalytic activity/Vol]29 U/NXklojq67-52ZnoodktcciUniversity Hospitals Lake West Medical CenterComment on above:Performed By: #### [id number] ####[facility] ([facility])[address] [place], [place] [address]Trpwgievs [Mass/Vol]1.0 mg/dL Normal0.3-1.0UnUniversity Hospitals Lake West Medical CenterComment on above:Performed By: #### [id number] ####[facility] ([facility])[address] [place] [address] Calcium [Mass/Vol]8.2 mg/dLLow8.6-10.3UnUniversity Hospitals Lake West Medical CenterComment on above:Performed By: #### [id number] ####[facility] (BEAKER)[address] [place] [address]Rsiyzmdw [Moles/Vol]90 mmol/AJfd32-281FscqjpvgowUniversity Hospitals Lake West Medical CenterComment on above:Performed By: #### [id number] ####[facility] ([facility])[address] [place] [address]HF4 [Moles/Vol]32 mmol/CIoxg75-19 [facility] PrebleComment on above:Performed By: #### [id number] ####[facility] ([facility])[address] [place], [place] [address]Pqsbuqflxl [Mass/Vol]1.17 mg/dLNormal0.70-1.30UnUniversity Hospitals Lake West Medical CenterComment on above:Performed By: #### [id number] ####[facility] ([facility])[address] [place], [place] [address]KZRLKTDBVI FILTRATION RATE ML/MIN/1.73 SQ M.XQVCYAUUK66.2 mL/min/1.73m*2Normal>60.0UnUniversity Hospitals Lake West Medical CenterComment on above: Result Comment: The [facility]???s estimated glomerular filtration rate (eGFR) will no [...] anyone group of individuals.Performed By: #### [id number] ####[facility] ([facility])[address] [place], [place] [address]Fldcysr [Mass/Vol]219 mg/gRPfmu27-620MfgqxvjldmUniversity Hospitals Lake West Medical CenterComment on above:Performed By: #### [id number] ####[facility] ([facility])[address] [place], [place] [address]Qmbezpgjr [Moles/Vol]4.0 mmol/L Normal3.5-5.1UnUniversity Hospitals Lake West Medical CenterComment on above:Performed By: #### [id number] ####[facility] ([facility])[address] [place] [address] Protein [Mass/Vol]5.5 g/dLLow6.0-8.3UnUniversity Hospitals Lake West Medical CenterComment on above:Performed By: #### [id number] ####[facility] ([facility])[address] [place], [place] [address]Nmtoel [Moles/Vol]131 mmol/DAsa518-213VpscfmbzsqUniversity Hospitals Lake West Medical CenterComment on above:Performed By: #### [id number] ####[facility] ([facility])[address] [place], [place] [address]Hrgh nitrogen [Mass/Vol]42 mg/dLHigh 7-25UnUniversity Hospitals Lake West Medical CenterComment on above:Performed By: #### [id number] ####[facility] ([facility])[address] [place], [place] [address]RTXQ NITROGEN/CREATININE (MASS RATIO) IN SER/PLAS35.9NormalUniversKettering Health Greene MemorialComment on above:Performed By: #### [id number] ####[facility] ([facility])[address] [place], [place] [address]Ynlaqaouqeu/100 WBC Auto (Bld)on 73-72-2666Nwnivhlzsif/100 WBC (Bld)Automated eosinophil %Low0.9-7.0[facility] HospitalErythrocyte distribution width Auto (RBC) [Ratio]on 19-21-5346Xdqqghpvwvq distribution width (RBC) [Ratio]Erythrocyte distribution width [Ratio] by Automated owxjpYzyw58.0-15.0[facility] Estimated glomerular filtration rate (GFR) non- Americanon 08-15-2024 GFR/1.73 sq M.predicted among non-blacks MDRD (S/P/Bld) [Vol rate/Area]Estimated glomerular filtration rate (GFR) non- AmericanLow>=60 mL/min/1.73m 2 [facility] HospitalGlobulin Calc (S) [Mass/Vol]on 08-15-2024 Globulin (S) [Mass/Vol]Serum globulin measurement by calculation (mass/volume) [facility] HospitalHEMOGLOBIN A1Con 26-97-3214Dzseico [Mass/Vol] 189 mg/dLNormalUniTrinity Health System East CampusComment on above:Performed By: #### [id number] ####[facility] (BEAKER)[address] [place] [address] HbA1c (Bld) [Mass fraction]8.2 %High4.0-6.0UnUniversity Hospitals Lake West Medical Center Comment on above:Performed By: #### [id number] ####[facility] ([facility])[address] [place], [place] [address]FRtc 78-30-6374PIKcdclhVwcnidpzmhTrinity Health System East CampusHematocrit Auto (Bld) [Volume fraction]on 38-08-6086Wmehxcftdz (Bld) [Volume fraction]Hematocrit [Volume Fraction] of Blood by Automated count 42.0-54.0[facility] HospitalHemoglobin [Mass/volume] in Bloodon 06-96-1725Haxiuuidka (Bld) [Mass/Vol]Hemoglobin [Mass/volume] in Blood14.0-18.0 [facility] HospitalLIPASEon 42-62-1467OWHCUU (U/L) IN SER/PLAS28 U/AHjboxm62-14KvgsiqtmpwUniversity Hospitals Lake West Medical CenterComment on above:Result Comment: M-CHEMISTRY SPECIMEN MODERATELY HEMOLYZED RESULTS MAY NOT BE ACCURATE Performed By: #### [id number] ####[facility] ([facility] [place], [place] [address]Zyamagdgzw - Chemistry and Chemistry - challengeon 17-24-5383FSB9 (Bld) [Moles/Vol]34.7 mmol/LHigh22.0-26.0[facility] HospitalAlbumin [Mass/Vol]2.6 g/dLLow3.4-5.0[facility] HospitalALP [Catalytic activity/Vol]81 U/Z84-292VygelcupdMercy Health West HospitalALT [Catalytic activity/Vol]37 U/X99-80Fpoalnlnk Regional Medical CenterAST [Catalytic activity/Vol]28 U/X99-99FxhfohxgiMercy Health West HospitalBilirubin [Mass/Vol]1.2 mg/dLHigh0.2-1.0[facility] HospitalCalcium [Mass/Vol]9.2 mg/dL 8.5-10.1FSelect Medical Specialty Hospital - Columbus SouthChloride [Moles/Vol]101 mmol/L98-107 [facility] HospitalCO2 [Moles/Vol]35.4 mmol/LHigh21.0-32.0 [facility] HospitalCreatinine [Mass/Vol]1.66 mg/dLHigh0.70-1.30 [facility] HospitalGFR/1.73 sq M.predicted MDRD (S/P/Bld) [Vol rate/Area]51 mL/min/{1.73_m2}Low>=60 mL/min/1.73m 2FSelect Medical Specialty Hospital - Columbus SouthGlucose [Mass/Vol]268 mg/hALhjp68-680GqwcbkbnxMercy Health West Hospital Potassium [Moles/Vol]3.8 mmol/L3.5-5.1FSelect Medical Specialty Hospital - Columbus SouthProtein [Mass/Vol]6.3 g/dLLow6.4-8.2FCommunity Memorial Hospitalodium [Moles/Vol] 143 mmol/Z400-269QjgjphcapMercy Health West HospitalUrea nitrogen [Mass/Vol]52.0 mg/dLHigh7.0-18.0[facility] HospitalUrea nitrogen/Creatinine [Mass ratio]31.3 mg/mgMercy Health West HospitalLaboratory - Hematology and Cell countson 71-77-5963Nsrsiwtb granulocytes/100 WBC (Bld)0.8 %High0.0-0.5 [facility] HospitalLeukocytes [#/volume] corrected for nucleated erythrocytes in Blood by Automated counon 70-65-6246DZL corrected for nucl RBC Auto (Bld) [#/Vol]Leukocytes [#/volume] corrected for nucleated erythrocytes in Blood by Automated coun4.0-11.0[facility] HospitalLymphocytes Auto (Bld) [#/Vol]on 31-66-1707Diylmbexzmk (Bld) [#/Vol]Lymphocytes [#/volume] in Blood by Automated countLow1.2-3.8[facility] Lymphocytes/100 WBC Auto (Bld)on 42-13-7372Hfezeevtimv/100 WBC (Bld) Lymphocytes/100 leukocytes in Blood by Automated axhxzJdh92.5-60.0[facility] HospitalMAGNESIUMon 97-54-9410Mkhnebohd [Mass/Vol]1.6 mg/dLLow 1.9-2.7[facility] Health PrebleComment on above:Performed By: #### [id number] ####[facility] (BEAKER)[address] [place], [place] [address]EHR Auto (RBC) [Entitic mass]on 29-08-7167LWM (RBC) [Entitic mass]MCH [Entitic mass] by Automated count25.9-34.0[facility] HospitalMCHC Auto (RBC) [Mass/Vol]on 26-43-0255EOBJ (RBC) [Mass/Vol]MCHC [Mass/volume] by Automated count29.9-35.2FSelect Medical Specialty Hospital - Columbus SouthMCV Auto (RBC) [Entitic vol]on 16-57-4881EKP (RBC) [Entitic vol]MCV [Entitic volume] by Automated count 80.0-94.0[facility] HospitalMRSA/MSSA DNA NASALon 44-08-3665WXBB DNANegativeNormalNegativeKettering Health PrebleComment on above: Order Comment: Testing methodology is [...] does not preclude nasal colonization.Performed By: #### [id number] ####[facility] (BEAKER)[address] [place], [place] [address]RIEH DNANegativeNormalNegativeUnUniversity Hospitals Lake West Medical CenterComment on above:Order Comment: Testing methodology is an [...] does not preclude nasal colonization.Performed By: #### [id number] ####[facility] (BEAKER)[address] [place], [place] [address]Qfgrzyzqf Auto (Bld) [#/Vol]on 02-09-4975Fmmejmapa (Bld) [#/Vol]Automated blood monocyte count0.3-0.8[facility] HospitalMonocytes/100 WBC Auto (Bld)on 77-19-8241Gvytxsrrn/100 WBC (Bld)Automated monocyte %1.7-12.0 [facility] HospitalNeutrophils Auto (Bld) [#/Vol]on 08-15-2024 Neutrophils (Bld) [#/Vol]Neutrophils [#/volume] in Blood by Automated count 1.4-6.5FSelect Medical Specialty Hospital - Columbus SouthNeutrophils/100 WBC Auto (Bld)on 16-16-7502Iknrxzljwbe/100 WBC (Bld)Automated neutrophil %High43.0-75.0[facility] HospitalNo Panel Informationon 60-76-6485Lvuar TestPositive POSITIVEMercy Health West HospitalArterial Blood Base Fhipnf99.0 mmol/L High<2.0-2.0[facility] HospitalArterial Blood Oxygen Saturation 97.0 %[facility] HospitalArterial Blood Partial Pressure CO247.8 mm[Hg]High35.0-45.0[facility] HospitalArterial Blood Partial Pressure O281.0 mm[Hg]80.0-100.0[facility] HospitalArterial Blood pH7.198Ctgd0.350-7.450Mer[facility] HospitalBlood Gas UZNS9SmuktmxnwMercy Health West HospitalBlood Gas Sample SiteRIGHT RADIALMercy Health West HospitalBlood Gas Set Respiration Disy67JgbjiytrgMercy Health West Hospital Blood Gas Tidal Bjpjly384ZephfpeaqMercy Health West HospitalBlood Gas Ventilator ModeAC/VCMercy Health West HospitalFiO290 %[facility] HospitalOxygen Delivery DeviceVENTMercy Health West HospitalReference Lab Test #2 Bdzmwi47.8[facility] HospitalEosinophils # (Auto)0.0 10 3/uL0.0-0.7FSelect Medical Specialty Hospital - Columbus SouthImmature Granulocyte # (Auto)0.06 10 3/uLHigh0.00-0.03[facility] HospitalPHOSPHORUSon 08-15-2024 Magnesium [Mass/Vol]2.7 mg/dLNormal2.5-5.0UnUniversity Hospitals Lake West Medical Center Comment on above:Performed By: #### [id number] ####[facility] (BEAKER)[address] [facility] [place], [place] [address]FGGM GLUCOSE METER UNSOLICITED RESULTSon 08-15-2024 Glucose [Mass/Vol]249 mg/oFElec78-814MifjfiegbhUniversity Hospitals Lake West Medical CenterComment on above:Order Comment: Waived Testing in the ED is performed under the ED CLIA certificate #[id number].Result Comment: oyoderPerformed By: #### [id number] ####[facility] (BEAKER)[address] [place] [address]Brgkspa [Mass/Vol]217 mg/qQSnvy28-552VsyegqbkslUniversity Hospitals Lake West Medical CenterComment on above:Order Comment: Waived Testing in the ED is performed under the ED CLIA certificate #[id number].Result Comment: qlsxlyg7Wssnscbzy By: #### [id number] ####[facility] (BEAKER)[address] [place], [place] [address]Hewtqvv [Mass/Vol]233 mg/uOFumo99-786EqugculabuUniversity Hospitals Lake West Medical CenterComment on above:Order Comment: Waived Testing in the ED is performed under the ED CLIA certificate #[id number].Result Comment: xozuijd5Iypholuvj By: #### [id number] ####[facility] (BEAKER)[address], [place] [address]KCVOFNRAU, WHOLE BLOODon 27-36-0063Dugoihsfk [Moles/Vol]3.4 mmol/LLow3.5-5.1UnUniversity Hospitals Lake West Medical CenterComment on above:Performed By: #### POTASSIUM, WHOLE BLOOD ####[facility] RESPIRATORY [id number] [place] [address] USAPlatelet mean volume Auto (Bld) [Entitic vol]on 71-28-5129Ewnasgda mean volume (Bld) [Entitic vol]Platelet mean volume [Entitic volume] in Blood by Automated count9.5-13.5 [facility] HospitalPlatelets Auto (Bld) [#/Vol]on 08-15-2024 Platelets (Bld) [#/Vol]Platelets [#/volume] in Blood by Automated bsheq195-701 [facility] HospitalRBC Auto (Bld) [#/Vol]on 88-68-3356OQD (Bld) [#/Vol]Erythrocytes [#/volume] in Blood by Automated count4.70-6.10[facility], AvonODIUM, WHOLE BLOODon 51-10-7365IDMWEL, WHOLE LTEIG088 Tflvzs059-782QobffzdcwtUniversity Hospitals Lake West Medical CenterComment on above:Performed By: #### SODIUM, WHOLE BLOOD ####[facility] RESPIRATORY [id number] [place] [address] USASerum or plasma albumin/globulin mass ratioon 08-15-2024 Albumin/Globulin [Mass ratio]Serum or plasma albumin/globulin mass ratio [facility], Avonerum or plasma anion gap determinationon 44-95-6681Tqyll gap [Moles/Vol]Serum or plasma anion gap determinationMercy Health West HospitalTRIGLYCERIDESon 10-30-4306QJBIVWK?unknownNormalUniversKettering Health Greene MemorialComment on above:Order Comment: Monitor triglycerides while patient is on propofol. Consult Nutrition if greater than 500 mg/dL. Performed By: #### [id number] ####[facility] (BEAKER)[address] [place], [place] [address]Tkdrnanho [Mass/Vol]3920 mg/xXQssf86-858CiovvpeooaUniversity Hospitals Lake West Medical CenterComment on above:Order Comment: Monitor triglycerides while patient is on propofol. Consult Nutrition if greater than 500 mg/dL.Result Comment: TRIGLYCERIDE REFERENCE RANGE:20 YEARS AND OLDER CARDIOVASCULAR RISKLESS THAN 150 mg/dL LOW TKKE834 TO 199 mg/dL BORDERLINE GEYL775 mg/dL AND GREATER HIGH RISKPerformed By: #### [id number] ####[facility] ([facility])[address] [place], [place] [address]XLPKPQGL Ion 59-90-9932Tvnyaznd I.cardiac [Mass/Vol]0.04 ng/mLNormal0.00-0.04UnUniversity Hospitals Lake West Medical CenterComment on above: Performed By: #### [id number] ####[facility] ([facility])[address] [place], [place] [address]BTYKCXUTUP WITH MICROSCOPICon 93-57-1042IKZUYZBAK, TOTAL PRESENCE IN URINENegativeNormalNegativeUnUniversity Hospitals Lake West Medical Center Comment on above:Performed By: #### [id number] ####[facility] ([facility])[address] [place], [place] [address]Gvtpftu (U)ClearNormalClearUnUniversity Hospitals Lake West Medical CenterComment on above:Performed By: #### [id number] ####[facility] ([facility])[address] [place], [place] [address]Mnmsq (U)ColorlessNormalColorless, Yellow, Light-YellowUnUniversity Hospitals Lake West Medical CenterComment on above: Performed By: #### [id number] ####[facility] ([facility])[address] [place], [place] [address]VHRIQOD (MG/DL) IN URINENormalNormalNormalUniversKettering Health Greene MemorialComment on above:Performed By: #### [id number] ####[facility] ([facility])[address] [place], [place] [address]ZAICIEIDVX PRESENCE IN URINESmallAbnormalNegativeUnUniversity Hospitals Lake West Medical CenterComment on above: Performed By: #### [id number] ####[facility] ([facility])[address] [place], [place] [address]Xysvhbr Ql (U)NegativeNormalNegativeUnUniversity Hospitals Lake West Medical CenterComment on above:Performed By: #### [id number] ####[facility] ([facility])[address] [place], [place] [address]BXLUTUTCI ESTERASE PRESENCE IN URINE BY TEST STRIPNegativeNormalNegativeUnUniversity Hospitals Lake West Medical CenterComment on above:Performed By: #### [id number] ####[facility] ([facility])[address] [place], [place] [address]EWVOA (#/LPF) IN URINE SEDIMENTOccasionalNormalNone Seen, Occasional, FewUnUniversity Hospitals Lake West Medical CenterComment on above:Performed By: #### [id number] ####[facility] ([facility])[address] [place] [address] NITRITE PRESENCE IN URINENegativeNormalNegativeUnUniversity Hospitals Lake West Medical CenterComment on above:Performed By: #### [id number] ####[facility] ([facility])[address] [place], [place] [address]eE (U)5.5 [pH]Normal5.0-8.0UnUniversity Hospitals Lake West Medical CenterComment on above:Performed By: #### [id number] ####[facility] ([facility])[address]ES[address] [place], [place] [address]Ljbqfxr (U) [Mass/Vol] NegativeNormalNegativeUnUniversity Hospitals Lake West Medical CenterComment on above: Performed By: #### [id number] ####[facility] ([facility])[address] [place], [place] [id number] (#/HPF) IN URINE [id number] Seen, 0-2 [facility] PrebleComment on above:Performed By: #### [id number] ####[facility] ([facility])[address] [place] [facility] [place], [place] [address]Jfqgvkvl gravity (U) [Rel density]1.571Qocfmb2.010-1.030UnUniversity Hospitals Lake West Medical Center Comment on above:Performed By: #### [id number] ####[facility] ([facility])[address] [place], [place] [address]PSJKADPF EPITHELIAL CELLS (#/LPF) IN URINE SEDIMENT None SeenNormalNone Seen, Occasional, FewUnUniversity Hospitals Lake West Medical Center Comment on above:Performed By: #### [id number] ####[facility] (BEAKER)[address] [place], [place] [address]GSXJCIGTAQZQ (MG/DL) IN URINENormalNormalNormal [facility] PrebleComment on above:Performed By: #### [id number] ####[facility] (BEAKER)[address] [place], [place] [address]WKO (LEUKOCYTE) (#/HPF) IN URINE SEDIMENT3-5AbnormalNone Seen, 0-2UnUniversity Hospitals Lake West Medical CenterComment on above:Performed By: #### [id number] ####[facility] (BEAKER)[address] [place], [place] [address]Tvqeqnfxn Auto (Bld) [#/Vol]on 20-55-0668Qfdzhktfs (Bld) [#/Vol]Automated basophil count0.0-0.1FSelect Medical Specialty Hospital - Columbus SouthBasophils/100 WBC Auto (Bld)on 69-06-6959Lufkmnimd/100 WBC (Bld)Automated basophil %0.2-2.0[facility] Eosinophils/100 WBC Auto (Bld)on 82-61-1593Vqntjzajhwf/100 WBC (Bld)Automated eosinophil %Low0.9-7.0[facility] HospitalErythrocyte distribution width Auto (RBC) [Ratio]on 31-30-9900Zvquwwpglin distribution width (RBC) [Ratio]Erythrocyte distribution width [Ratio] by Automated zgushHmgn82.0-15.0 [facility] HospitalEstimated glomerular filtration rate (GFR) non- Americanon 39-85-5373DEM/1.73 sq M.predicted among non-blacks MDRD (S/P/Bld) [Vol rate/Area]Estimated glomerular filtration rate (GFR) non- AmericanLow>=60 mL/min/1.73m 2FSelect Medical Specialty Hospital - Columbus SouthGlobulin Calc (S) [Mass/Vol]on 31-21-0873Vjoxppqy (S) [Mass/Vol]Serum globulin measurement by calculation (mass/volume)[facility] HospitalHematocrit Auto (Bld) [Volume fraction]on 93-93-4850Pkhifvvfii (Bld) [Volume fraction]Hematocrit [Volume Fraction] of Blood by Automated count42.0-54.0[facility] HospitalHemoglobin [Mass/volume] in Bloodon 59-59-1496Hrtnymllcw (Bld) [Mass/Vol] Hemoglobin [Mass/volume] in Blood14.0-18.0[facility] Laboratory - Chemistry and Chemistry - challengeon 12-85-3153WSF7 (Bld) [Moles/Vol]30.8 mmol/LHigh22.0-26.0[facility] HospitalAlbumin [Mass/Vol]2.4 g/dLLow3.4-5.0[facility] HospitalALP [Catalytic activity/Vol]82 U/H02-298FgzgautpmMercy Health West HospitalALT [Catalytic activity/Vol]39 U/E21-13UduxrtujzMercy Health West HospitalAST [Catalytic activity/Vol]24 U/Q64-41XwjxyldadMercy Health West HospitalBilirubin [Mass/Vol]1.1 mg/dLHigh0.2-1.0[facility] HospitalCalcium [Mass/Vol]8.6 mg/dL 8.5-10.1FSelect Medical Specialty Hospital - Columbus SouthChloride [Moles/Vol]102 mmol/L98-107 [facility] HospitalCO2 [Moles/Vol]32.4 mmol/LHigh21.0-32.0 [facility] HospitalCreatinine [Mass/Vol]1.64 mg/dLHigh0.70-1.30 [facility] HospitalGFR/1.73 sq M.predicted MDRD (S/P/Bld) [Vol rate/Area]51 mL/min/{1.73_m2}Low>=60 mL/min/1.73m 2FSelect Medical Specialty Hospital - Columbus SouthGlucose [Mass/Vol]194 mg/pLTquk06-749UdupfqvrpMercy Health West Hospital Potassium [Moles/Vol]3.9 mmol/L3.5-5.1FSelect Medical Specialty Hospital - Columbus SouthProtein [Mass/Vol]5.8 g/dLLow6.4-8.2FCommunity Memorial Hospitalodium [Moles/Vol] 140 mmol/M080-985IdqzkrjmsMercy Health West HospitalUrea nitrogen [Mass/Vol]54.0 mg/dLHigh7.0-18.0[facility] HospitalUrea nitrogen/Creatinine [Mass ratio]32.9 mg/mgMercy Health West HospitalLaboratory - Hematology and Cell countson 09-05-1126Unvqyhsv granulocytes/100 WBC (Bld)0.8 %High0.0-0.5 [facility] HospitalLeukocytes [#/volume] corrected for nucleated erythrocytes in Blood by Automated counon 05-51-7798WTP corrected for nucl RBC Auto (Bld) [#/Vol]Leukocytes [#/volume] corrected for nucleated erythrocytes in Blood by Automated coun4.0-11.0[facility] HospitalLymphocytes Auto (Bld) [#/Vol]on 09-69-4858Tgmmglfaqsi (Bld) [#/Vol]Lymphocytes [#/volume] in Blood by Automated countLow1.2-3.8[facility] Lymphocytes/100 WBC Auto (Bld)on 99-74-5527Vyepzsjlbxd/100 WBC (Bld) Lymphocytes/100 leukocytes in Blood by Automated dcbtvLkx70.5-60.0[facility] HospitalH Auto (RBC) [Entitic mass]on 07-76-4736ILV (RBC) [Entitic mass]MCH [Entitic mass] by Automated count25.9-34.0[facility] HospitalMCHC Auto (RBC) [Mass/Vol]on 54-60-1061KBUA (RBC) [Mass/Vol]MCHC [Mass/volume] by Automated count29.9-35.2FSelect Medical Specialty Hospital - Columbus SouthMCV Auto (RBC) [Entitic vol]on 08-76-5588RCL (RBC) [Entitic vol]MCV [Entitic volume] by Automated xpvrdVesl07.0-94.0[facility] HospitalMonocytes Auto (Bld) [#/Vol]on 95-04-8028Luwutqctd (Bld) [#/Vol]Automated blood monocyte count 0.3-0.8[facility] HospitalMonocytes/100 WBC Auto (Bld)on 73-76-9968Owvqmufhi/100 WBC (Bld)Automated monocyte %1.7-12.0[facility] HospitalNeutrophils Auto (Bld) [#/Vol]on 07-06-1887Avanrhafoas (Bld) [#/Vol]Neutrophils [#/volume] in Blood by Automated count1.4-6.5FSelect Medical Specialty Hospital - Columbus SouthNeutrophils/100 WBC Auto (Bld)on 08-14-2024 Neutrophils/100 WBC (Bld)Automated neutrophil %High43.0-75.0[facility] HospitalNo Panel Informationon 30-59-1594Cngfi TestPositivePOSITIVE [facility] HospitalArterial Blood Base Excess6.2 mmol/LHigh <2.0-2.0[facility] HospitalArterial Blood Oxygen Kuxnmoduws15.3 % [facility] HospitalArterial Blood Partial Pressure CO248.3 mm[Hg] High35.0-45.0[facility] HospitalArterial Blood Partial Pressure O2 62.0 mm[Hg]Low80.0-100.0[facility] HospitalArterial Blood pH7.413 7.350-7.450[facility] HospitalBlood Gas PEEP+8[facility] HospitalBlood Gas Sample SiteRIGHT RADIALMercy Health West Hospital Blood Gas Set Respiration Suym14LoiayocfrMercy Health West HospitalBlood Gas Tidal Lonxph359PetxchcniMercy Health West HospitalBlood Gas Ventilator ModeACMercy Health West HospitalFiO2100 %[facility] HospitalOxygen Delivery DeviceVENTMercy Health West HospitalEosinophils # (Auto)0.0 10 3/uL 0.0-0.7FSelect Medical Specialty Hospital - Columbus SouthImmature Granulocyte # (Auto)0.05 10 3/uLHigh0.00-0.03[facility] HospitalPlatelet mean volume Auto (Bld) [Entitic vol]on 17-08-6325Xoxdrvfn mean volume (Bld) [Entitic vol]Platelet mean volume [Entitic volume] in Blood by Automated count9.5-13.5FSelect Medical Specialty Hospital - Columbus SouthPlatelets Auto (Bld) [#/Vol]on 62-99-2799Nkfbzgwob (Bld) [#/Vol]Platelets [#/volume] in Blood by Automated fhkeg925-610JcgdsymnhMercy Health West HospitalRBC Auto (Bld) [#/Vol]on 78-76-8813JXK (Bld) [#/Vol]Erythrocytes [#/volume] in Blood by Automated count4.70-6.10[facility] Serum or plasma albumin/globulin mass ratioon 52-01-4626Tauqctp/Globulin [Mass ratio]Serum or plasma albumin/globulin mass ratioSelect Medical Cleveland Clinic Rehabilitation Hospital, Avonerum or plasma anion gap determinationon 54-54-5914Neodm gap [Moles/Vol] Serum or plasma anion gap determinationMercy Health West HospitalURINE CULTURE, ROUTINEon 65-17-8316Tkmvexhc identified Cx Nom (U) Urine Culture, Routine [facility]OM[facility] HealthcareBacteria identified Cx Nom (U)No growthNOMS HealthcareBacteria identified Cx Nom (U)Performed at: [facility] LabHill [facility] HealthcareBacteria identified Cx Nom (U)[address] [place] [address] [id number] [facility] Bacteria identified Cx Nom (U)Pier Runner: Tyron Saeed PhD, Phone: [phone] HealthcareCLINISYNCNOMS HealthcareBasophils Auto (Bld) [#/Vol]on 98-58-7849Sujjmplnr (Bld) [#/Vol]0.1 10 3/uL0.0-0.1FSelect Medical Specialty Hospital - Columbus SouthBasophils/100 WBC Auto (Bld)on 07-34-5754Vsppilwzx/100 WBC (Bld)0.4 % 0.2-2.0[facility] HospitalEosinophils/100 WBC Auto (Bld)on 65-52-6042Vcwjvkahlvg/100 WBC (Bld)1.7 %0.9-7.0[facility] Erythrocyte distribution width Auto (RBC) [Ratio]on 26-57-9510Fcefvhiwmud distribution width (RBC) [Ratio]13.9 %11.0-15.0[facility] Estimated glomerular filtration rate (GFR) non- Americanon 04-08-2024 GFR/1.73 sq M.predicted among non-blacks MDRD (S/P/Bld) [Vol rate/Area] mL/min/{1.73_m2}>=60[facility] HospitalHematocrit Auto (Bld) [Volume fraction]on 72-26-0554Gaufrhkmgv (Bld) [Volume fraction]45.1 %42.0-54.0 [facility] HospitalHemoglobin [Mass/volume] in Bloodon 04-08-2024 Hemoglobin (Bld) [Mass/Vol]14.7 g/dL14.0-18.0[facility] Laboratory - Chemistry and Chemistry - challengeon 37-29-1639Dtvygtv [Mass/Vol] 10.6 mg/dLHigh8.5-10.1FSelect Medical Specialty Hospital - Columbus SouthChloride [Moles/Vol]98 mmol/L60-819OntgmozbrMercy Health West HospitalCO2 [Moles/Vol]34.6 mmol/LHigh 21.0-32.0[facility] HospitalCreatinine [Mass/Vol]1.03 mg/dL 0.70-1.30[facility] HospitalGFR/1.73 sq M.predicted MDRD (S/P/Bld) [Vol rate/Area]mL/min/{1.73_m2}>=60[facility] HospitalGlucose [Mass/Vol]178 mg/xCIrft90-251PvvfduhulMercy Health West HospitalPotassium [Moles/Vol]4.4 mmol/L3.5-5.1FCommunity Memorial Hospitalodium [Moles/Vol] 135 mmol/IIsw878-711QjbubfyzfMercy Health West HospitalUrea nitrogen [Mass/Vol] 16.0 mg/dL7.0-18.0[facility] HospitalUrea nitrogen/Creatinine [Mass ratio]15.5 mg/mgMercy Health West HospitalLaboratory - Hematology and Cell countson 95-77-8699Pqiikxjc granulocytes/100 WBC (Bld)1.1 %High0.0-0.5 [facility] HospitalLeukocytes [#/volume] corrected for nucleated erythrocytes in Blood by Automated counon 42-03-2143HZC corrected for nucl RBC Auto (Bld) [#/Vol]13.3 10 3/uLHigh4.0-11.0[facility] Lymphocytes Auto (Bld) [#/Vol]on 07-53-9308Nakvagcshnb (Bld) [#/Vol]1.7 10 3/uL 1.2-3.8[facility] HospitalLymphocytes/100 WBC Auto (Bld)on 99-31-5379Arcogdhefjz/100 WBC (Bld)12.5 %Low20.5-60.0[facility] Memorial HospitalH Auto (RBC) [Entitic mass]on 18-32-5237GTM (RBC) [Entitic mass]31.1 pg 25.9-34.0[facility] HospitalMCHC Auto (RBC) [Mass/Vol]on 54-27-3670GBAO (RBC) [Mass/Vol]32.6 g/dL29.9-35.2FSelect Medical Specialty Hospital - Columbus SouthMCV Auto (RBC) [Entitic vol]on 97-67-3407OQJ (RBC) [Entitic vol]95.6 fL High80.0-94.0[facility] HospitalMonocytes Auto (Bld) [#/Vol]on 06-15-7141Idujamlpx (Bld) [#/Vol]1.0 10 3/uLHigh0.3-0.8[facility] HospitalMonocytes/100 WBC Auto (Bld)on 76-85-3423Knybooegx/100 WBC (Bld) 7.3 %1.7-12.0[facility] HospitalNeutrophils Auto (Bld) [#/Vol]on 14-10-1698Ovzqgservpn (Bld) [#/Vol]10.3 10 3/uLHigh1.4-6.5FSelect Medical Specialty Hospital - Columbus SouthNeutrophils/100 WBC Auto (Bld)on 90-90-3445Rlhmwhrqqpn/100 WBC (Bld)77.0 %High43.0-75.0[facility] HospitalNo Panel Information Ordered By: Rc Curtis on 03-00-5288Hwjj Fast SmearMercy Health West HospitalAFB Specimen ProcessingMercy Health West HospitalAnaerobic Cult, Extended IncubMercy Health West HospitalTissue CultureMercy Health West HospitalNo Panel Informationon 60-57-2122Rtjpve Smear Result\R\ Fungus StainMercy Health West HospitalGram Stain Result 1\R\ Gram Stain ResultMercy Health West HospitalMiscellaneous Test CommentSee comment [facility] HospitalComment on above:Specimen Source: FOOTRT - Foot Right - Foot Rt - 604.000Eosinophils # (Auto)0.2 10 3/uL0.0-0.7FSelect Medical Specialty Hospital - Columbus SouthImmature Granulocyte # (Auto)0.15 10 3/uLHigh0.00-0.03 [facility] HospitalPlatelet mean volume Auto (Bld) [Entitic vol]on 81-12-5147Txdckvyv mean volume (Bld) [Entitic vol]9.8 fL9.5-13.5FSelect Medical Specialty Hospital - Columbus SouthPlatelets Auto (Bld) [#/Vol]on 53-75-9133Uoxjcbuhe (Bld) [#/Vol]482 10 3/qXDzyz944-438ZxnpwicduMercy Health West HospitalRBC Auto (Bld) [#/Vol]on 40-20-6626PED (Bld) [#/Vol]4.72 10 6/uL4.70-6.10[facility], Avonerum or plasma anion gap determinationon 87-09-7000Ijvdg gap [Moles/Vol]6.8 mmol/LFSelect Medical Specialty Hospital - Columbus SouthALL CBC WITH AUTO DIFFon 65-25-1341VAEKWHBGS ABSOLUTE AUTO0.1NOM[facility] HealthcareBasophils/100 WBC (Bld)0.6 % 0.2 [...] HealthcareMCH (RBC) [Entitic mass]31.5 pg25.9 - 34.0 pgSt. Louis Children's HospitalHC (RBC) [Mass/Vol] 32.7 g/dL29.9 - 35.2 g/dLSt. Louis Children's HospitalV (RBC) [Entitic vol]96.3 rASftn02.0 - 94.0 fLJohn J. Pershing VA Medical CenterMONOCYTES ABSOLUTE AUTO1.2HighHIGHLAND RIDGE [facility]OSPITAL HealthcareMonocytes/100 WBC (Bld)7.8 %1.7 - 12.0 %[facility] HealthcareNEUTROPHILS ABSOLUTE AUTO11.4HighHIGHLAND RIDGE HOSPITAL HealthcareNeutrophils/100 WBC (Bld)71.9 %43.0 - 75.0 %[facility] HealthcarePlatelet mean volume (Bld) [Entitic vol]10.2 fL9.5 - 13.5 fLJohn J. Pershing VA Medical CenterTBH EO #0.3 [facility] Medical CenterTBH HSK496TzeoVWNN HealthcareTB RBC4.35LowJohn J. Pershing VA Medical CenterTBH WBC 15.8HighJohn J. Pershing VA Medical CenterCLINISYNCNOMS HealthcareXR FOOT LT MIN 3 VIEWSon 02-55-6219US FOOT LT MIN 3 VIEWSEXAM: XR FOOT [...] Electronically authenticated by: Sukhdev PARKS Date: 2022-07-14 23:08[facility] Berger HospitalGLYCOHEMOGLOBIN A1Con 62-15-3107DYB RECOMMENDATIONSEE BELOW NormalThe [facility]uff[facility] HospitalComment on above:Result Comment: ADA RECOMMENDED LIMIT 4.0 - 6.0 ADA THERAPEUTIC TARGET < 7.0 ACTION SUGGESTED > 7.0Performed By: #### A1C #### [facility] [address] [place] [address] Dr. Jennifer ZamoraGlucose [Mass/Vol]212 mg/dLOhioHealth Berger HospitalComment on above:Performed By: #### A1C #### [facility] [address] [address] [address] Jennifer ZamoraHbA1c (Bld) [Mass fraction]9.0 %Critically high4.5-6.2The [facility] HospitalComment on above:Performed By: #### A1C #### [facility] [address] [place] [address] Dr. Jennifer ZamoraPROF 14(COMP METB)on 21-73-5550Jwqpnvq [Mass/Vol]3.4 g/dLNormal 3.4-5.0The [facility] HospitalComment on above:Performed By: #### CMP #### [facility] [address] [place] [address] Dr. Jennifer ZamoraAlbumin/Globulin [Mass ratio]0.9 {ratio}NormalThe [facility] HospitalComment on above:Performed By: #### CMP #### [facility] [address] [place] [address] Dr. Jennifer AriasP [Catalytic activity/Vol]108 U/EUlvqwa85-759Num [facility] HospitalComment on above:Performed By: #### CMP #### [facility] [address] [place] [address] Dr. Jennifer AriasT [Catalytic activity/Vol]35 U/CDdyzfr90-77Hjk [facility] HospitalComment on above:Performed By: #### CMP #### [facility] [address] [place] [address] Dr. Jennifer Early gap [Moles/Vol]7.0 mmol/LNormalThe [facility] HospitalComment on above:Performed By: #### CMP #### [facility] [address] [place] [address] Dr. Jennifer ZamoraAST [Catalytic activity/Vol]11 U/LCritically eod81-01Apq [facility] HospitalComment on above:Performed By: #### CMP #### [facility] [address] [place] [address] Dr. Jennifer ZamoraBilirubin [Mass/Vol]0.7 mg/dLNormal0.2-1.0The [facility] Comment on above:Performed By: #### CMP #### [facility] [address] [address] [address] Jennifer ZamoraCalcium [Mass/Vol]8.9 mg/dLNormal8.5-10.1The [facility] Comment on above:Performed By: #### CMP #### [facility] [address] [address] [address] Jennifer ZamoraChloride [Moles/Vol]100 mmol/TLimxqh45-251Ycr [facility] Comment on above:Performed By: #### CMP #### [facility] [address] [address] [address] Jennifer ZamoraCO2 [Moles/Vol]32.5 mmol/LCritically high21.0-32.0The [facility] HospitalComment on above:Performed By: #### CMP #### [facility] [address] [address] [address] Jennifer ZamoraCreatinine [Mass/Vol]1.05 mg/dLNormal0.70-1.30The [facility] HospitalComment on above:Performed By: #### CMP #### [facility] [address] [address] [address] Jennifer VasquezGFR-AF STATELESS>60Normal>=60The [facility] HospitalComment on above:Performed By: #### CMP #### [facility] [address] [address] [address] Jennifer VasquezGFR-NON AF STATELESS>60Normal>=60The [facility] HospitalComment on above:Performed By: #### CMP #### [facility] [address] [address] [address] Jennifer ZamoraGlobulin (S) [Mass/Vol]3.7 g/dLNormalThe [facility] HospitalComment on above:Performed By: #### CMP #### [facility] [address] [address] [address] Jennifer ZamoraGlucose [Mass/Vol]175 mg/dLCritically tmjf45-890Avk [facility] HospitalComment on above:Performed By: #### CMP #### [facility] [address] [address] [address] Jennifer ZamoraPotassium [Moles/Vol]4.5 mmol/LNormal3.5-5.1The [facility] Comment on above:Performed By: #### CMP #### [facility] [address] [address] [address] Jennifer ZamoraProtein [Mass/Vol]7.1 g/dLNormal6.4-8.2The [facility] Comment on above:Performed By: #### CMP #### [facility] [address] [address] [address] Jennifer ZamoraSodium [Moles/Vol]135 mmol/LCritically wyi152-234Bqv [facility] HospitalComment on above:Performed By: #### CMP #### [facility] [address] [place] [address] Dr. Jennifer ZamoraUrea nitrogen [Mass/Vol]18.0 mg/dLNormal7.0-18.0The [facility] HospitalComment on above:Performed By: #### CMP #### [facility] [address] [place] [address] Dr. Jennifer Bragg nitrogen/Creatinine [Mass ratio]17.1 mg/mgNormalThe [facility] HospitalComment on above:Performed By: #### CMP #### [facility] [address] [place] [address] Dr. Jennifer Zamora Vital Signs Date TimeVital SignValuePerforming XpndrztvvZjijjuly85-51-6827 14:00-0400Body makpci156.34 cmDara Eisenberg APRN Work Phone: [facility]10-09-2025 14:00-0400 Body dqkkmjpxanr94.9 [degF]Dara Eisenberg APRN Work Phone: [facility]10-09-2025 14:00-0400 Diastolic blood reummalr19 mm[Hg]Dara Eisenberg APRN Work Phone: [facility]10-09-2025 14:00-0400 Heart rate86 /minDara Eisenberg SL[employer] Work Phone: [phone]10-09-2025 14:00-0400 SaO2% (BldA) [Mass fraction]94 %Dara Mendenhallaleciamaríazaida [employer] Work Phone: [phone] [place], [place] 7045110-09-2025 14:00-0400 Systolic blood ozmgffef437 mm[Hg]Dara Mendenhallcharlotte [employer] Work Phone: [phone] [place], [place] 3522907-15-2025 14:09-0400 Body ihgmny115.34 cmaDra Robbr [employer] Work Phone: [phone] [place], [place] 3522907-15-2025 14:09-0400 Body mass index (BMI) [Ratio]41.7 kg/u7OycdbullDara Florianacher [employer] Work Phone: [phone] [place], [place] 3522907-15-2025 14:09-0400 Body vrmfodnspxf70.5 [degF]Dara Mendenhallcharlotte SL[employer] TWISTER Work Phone: [phone] [place], [place] 3522907-15-2025 14:09-0400 Body mpmcaj653.62 kgDara Robbr [employer] Work Phone: [phone] [place], [place] 3522907-15-2025 14:09-0400 Diastolic blood raojteii25 mm[Hg]Dara Mendenhallaleciamaríazaida SL[employer] Work Phone: [phone])[facility] [place], [place] 70[address]107-15-2025 14:09-0400 Heart hmau324 /Alon Robbzaida [employer] Work Phone: [phone] [place], [place] 3522907-15-2025 14:09-0400 SaO2% (BldA) [Mass fraction]96 %Dara Mendenhallcharlotte SL[employer] Work Phone: [phone] [place], [place] 3522907-15-2025 14:09-0400 Systolic blood vtaprdtg095 mm[Hg]Dara Mendenhallcharlotte [employer] Work Phone: [phone] [place], [place] 3522904-18-2025 10:26-040 Body .34 cmMer[facility] Health [facility] Hospital04-18-2025 10:0400Body mass index (BMI) [Ratio]44.7 kg/k8VuoneeokqMercy Health West Hospital04-18-2025 10:Body .6 kgMercy Health West Hospital04-18-2025 10:Diastolic blood gbcbcpez82 mm[Hg][facility] 11-05-2024 10:Heart rate98 /[facility] 11-05-2024 10:Respiratory rate14 /[facility] 11-05-2024 10:0277UgY8% (BldA) [Mass fraction]90 %[facility]04-18-2025 10:Systolic blood umgldmtw086 mm[Hg][facility]10-14-2024 14:14-0400Body lxrnke131.34 cmAPRFauzia Eisenberg Work Phone: [phone] [place], [place] [address]110-14-2024 14:14-0400 Body mass index (BMI) [Ratio]39.3 kg/m2ROWDY Eisenberg Work Phone: [phone]10-14-2024 14:14-0400 Body nisriovivle93.9 [degF]ROWDY Eisenberg Work Phone: [phone]10-14-2024 14:14-0400 Body izvaeu246 kgROWDY Eisenberg Work Phone: [phone]10-14-2024 14:14-0400 Diastolic blood drjlfiqa44 mm[Hg]ROWDY Eisenberg Work Phone: [phone]10-14-2024 14:14-0400 Heart lcbp166 /minROWDY Eisenberg Work Phone: [phone]10-14-2024 14:14-0400 SaO2% (BldA) [Mass fraction]92 %ROWDY Eisenberg Work Phone: [facility]10-14-2024 14:14-0400 Systolic blood mm[Hg]ROWDY Ivanfer Faina Work Phone: [facility]09-16-2024 13:44-0400 Body nehkdn754.34 cmDPM [facility] Work Phone: [facility]09-16-2024 13:44-0400 Body mass index (BMI) [Ratio]39.6 kg/m2DPM [facility] Work Phone: [facility]09-16-2024 13:44-0400 Body zhrukfyfswk85.4 [degF]DPM [facility] Work Phone: [facility]09-16-2024 13:44-0400 Body vbfjoo537.82 kgDPM [facility] Work Phone: [facility]09-16-2024 13:44-0400 Diastolic blood pwzfudgm48 mm[Hg]DPM [facility] Work Phone: [facility]09-16-2024 13:44-0400 Heart rate61 /minDPM [facility] Work Phone: [facility]09-16-2024 13:44-0400 SaO2% (BldA) [Mass fraction]87 %DPM [facility] Work Phone: [facility]09-16-2024 13:44-0400 Systolic blood oujsvyph296 mm[Hg]DPM [facility] Work Phone: [facility] Encounters Encounter DateEncounter TypeCare ProviderFacilityStart: 04-28-2025 End: 59-33-6502daizllwldrNleyzmihJanette Eisenberg APRN Work Phone: [facility] Work Phone: Start: 04-28-2025 End: 76-24-2767Dllxwiv encounter procedureDara Eisenberg APRN [facility] Work Phone: Start: [phone]-patient / Non-visitCatherwendy Blevins [facility] Work Phone: Start: [phone]-patient / Non-visitRafisukhdev Richard MDQuincy Valley Medical Center [facility] Work Phone: Start: 30-27-9388Vsu-patient / Non-visitRafisukhdev Richard MDQu[facility] Work Phone: Start: 96-21-2025Fgv-patient / Non-visitRafisukhdev Richard MDQu[facility] Work Phone: Start: 50-39-4100Vkz-patient / Non-visitRafisukhdev Richard MDQu[facility] Work Phone: Start: 04-05-2025 End: 62-38-7880gcgyocieptAimfzgtbJanette Eisenberg APRN Work Phone: [facility] Work Phone: Start: 04-05-2025 End: 50-23-8096Iszwacts Keron Starr MD-LAB Path Spec [facility] Start: 04-18-9092Qpn-patient / Non-visitRafisukhdev Richard MDQu[facility] Work Phone: Start: 91-39-7347zzmuxtxymdLXKK Helen Justmily [facility]: 02-01-2025 End: 66-12-3740hzflohhjcmHewgrqdp Rohrbacher APRN Work Phone: [facility] Work Phone: Start: 02-01-2025 End: 65-44-3108Cbpcgzk encounter procedureDara Eisenberg APRN [facility] Work Phone: Start: 01-28-2025 End: 98-86-9469pmeqnccoozCSFDZEXZ A ROHRBACHERFacility:FTMCStart: 84-74-8558Bai- patient / Non-visitCatherine Gen [facility] Work Phone: Start: 01-24-2025 End: 72-29-4893Rsfqiwmzew and management of inpatientLawrence CalebNimesh Noahkinsey Facility:FTMCStart: 06-17-6623Fsdohqhoz department patient visitAstrit Delfina Fletcher Facility:FTMCStart: 11-05-2024 End: 17-57-4783ofycxvziuvMrmazdewpKettering Health [facility] Center Work Phone: Start: 11-05-2024 End: 58-02-2814Ltvtcqv encounter procedureFormerly [facility] Work Phone: Start: 53-06-2534Gcouxtsbdm and management of inpatientFADI SAFIMercy Health St. [facility] Hospitaltart: 77-98-4676Sskxrjeyxp and management of inpatientOMAR HORANIMercy Health St. [facility] Hospitaltart: 74-93-4053Jhzkynhpjs and management of inpatientKIMBERLY [facility] Hospitaltart: 94-44-3999Bkisnncuqh and management of inpatient PALOMO [facility]: 13-78-2172Tnbnisimrq and management of inpatientZAID [facility]: 08-47-9236Ectikvhatf and management of inpatientZAID [facility] Hospitaltart: 43-71-8990Xotveqmjpb and management of inpatientZAID [facility] Centertart: 53-19-4929Eusxaiagau and management of inpatientZAID [facility] Hospitaltart: 08-19-2024 Evaluation and management of inpatientZAID [facility] Hospitaltart: 48-03-1901Lwfmfsksse and management of inpatientZAID [facility] Centertart: 89-72-2463Qesywsxqie and management of inpatientZAID [facility]tart: 08-16-2024 Evaluation and management of inpatientZAID [facility] Hospitaltart: 54-94-3581Ltgadbwxuq and management of inpatientMOHAMED OMMORGANTONI [facility] Hospitaltart: 08-15-2024 End: 62-94-9895Elzgsbcmfz and management of inpatientSMELANI UrbinaMercy Health Willard Hospitaltart: 36-57-0780Lrv-patient / Non-visitFormerly [facility] Work Phone: Start: 53-02-1336Zti-patient / Non-visitFormerly [facility] Work Phone: Start: 08-10-2024 End: 64-98-9450Hdvcqtrpw Result EncounterSmelani Villareal MD Work Phone: noms External Department UnsolicitedStart: 08-10-2024 End: 11-05-8856Dsiwykvhv Result EncounterSmelani Villareal MD Work Phone: noms External Department UnsolicitedStart: 05-03-2024 End: 81-22-7146ykrxyximaeRRKL Jennifer Rohrbacher Work Phone: [facility] Work Phone: Start: 05-03-2024 End: 87-18-1975Qctzimp encounter procedureROWDY Eisenberg Work Phone: [facility] Work Phone: Start: 04-12-2024 End: 98-29-2049ulmfwbtfbcUNYH Jennifer Rohrbacher Work Phone: [facility] Work Phone: Start: 04-12-2024 End: 52-54-3292Yuwplcb encounter procedureROWDY Eisenberg Work Phone: [facility] Infectious Disease Work Phone: Start: 04-08-2024 End: 48-17-1771veqywhoqqqGPTZ Dara Eisenberg Work Phone: [facility] Work Phone: Start: 04-08-2024 End: 14-28-1280Zpdheasd ReferredAPRN Dara Faina Work Phone: [facility]-LAB [facility]ospStart: 81-26-2446Ukl-patient / Non-visitAPRN Dara Eisenberg Work Phone: [facility] GroupQu[facility] Work Phone: Start: 04-05-2024 End: 41-85-1774Bomrulsni Result EncounterSmelani Villareal MD Work Phone: noms External Department UnsolicitedStart: 04-05-2024 End: 82-89-4635Oyqqdnwlv Result EncounterSmelani Villareal MD Work Phone: noms External Department UnsolicitedStart: 04-05-2024 End: 20-80-7619asuctkeiuaCFA Rc Curtis Work Phone: [facility] Work Phone: Start: 04-05-2024 End: 72-75-9419Vuegwue encounter procedureDPM Rc Curtis Work Phone: [facility] Work Phone: Start: 03-29-2024 End: 57-84-6578whkxkivnokTKO Rc Curtis Work Phone: [facility] Work Phone: Start: 03-29-2024 End: 50-72-9664Vardkavf ReferredDPM Rc Curtis Work Phone: [facility]-LAB [facility] Spec [facility]ospStart: 12-89-2427Ywk-patient / Non-visitDPM Rc Curtis Work Phone: [facility] Work Phone: Start: 07-14-2022 End: 26-66-3521svxdetilpuWT EDELMIRA MARKERFacility:I6Wrqdz: 05-13-2022 End: 42-24-3881uydwkehzblGS MADELEINE HOUSEFacility:H1 Procedures DateProcedureProcedure DetailPerforming ClinicianStart: 12-80-0859Lkhaf culture Dara Eisenberg SLAT TWISTER Work Phone: Start: 30-12-5330Phlwsaak identified in Urine by CultureSmelani Villareal MD Work Phone: Start: 75-81-3158Rlfn Fast SmearAPRFauzia Eisenberg Work Phone: Start: 11-14-5774UKG Specimen ProcessingAPRFauzia Eisenberg Work Phone: Start: 67-52-2182Jyqxnpaaf Cult, Extended IncubAPRFauzia Eisenberg Work Phone: Start: 53-20-5873Brxahs CultureAPRFauzia Eisenberg Work Phone: Start: 84-58-9987JIP CBC WITH AUTO DIFFShevens Villareal MD Work Phone: History of amputation of footStatus post partial amputation of right footHistory of amputation of footStatus post partial amputation of right footJennifer Rohrbacher SLAT TWISTER CNPHistory of amputation of footStatus post partial amputation of right footJennifer Rohrbacher SLAT TWISTER EMBEDDED SOFTWARE MANAGER Plan of Treatment DateCare ActivityDetailAuthorStart: 52-19-5005Kkzvk [facility] Hospitaltart: 09-90-2379Xvzsuili identified in Urine by CultureUrine [facility] Hospitaltart: 11-49-7250Wyfg Fast CultureAcid Fast [facility] Payers DatePayer CategoryPayerPolicy [id number]-[id number] Health [id number] [id number] [id number] 2.16.840.1.029856.3.579.2.14012-73-7134 [id number] 2.16.840.1.273982.3.57[id number] 2.16.840.1.269671.3.57[id number] 2.16.840.1.528379.3.57[id number] 2.16.840.1.059756.3.57[id number] 2.16.840.1.597558.3.57[id number] 2.16.840.1.908905.3.57[id number] 2.16.840.1.146826.3.57[id number] 2.16.840.1.574012.3.57[id number] 2.16.840.1.684337.3.57[id number] 2.16.840.1.879919.3.579.2.727MedicareCaresource MyCareKettering Health – Soin Medical [id number] Health InsuranceKettering Health Troy [id number] Insurance [id number] 2.16.840.1.772210.3.579.2.531 Social History DateTypeDetailFacilityTobacco smoking status NHISUnknown if ever smokedJoint Township District Memorial Hospital Work Phone: Start: 21-01-8222Onz Assigned At BirthUK Healthcaretart: 71-55-3138Aoersrj smoking status NHISSmoker (finding)[facility] HospitalTobao smoking status NHISTobacco smoking consumption [facility] HealthcareStart: 01-16-5908Sqx assigned at Not on [facility] CenterGender identityNot on [facility] CenterStart: 21-95-7261JjwStob (finding)[facility] Avontart: 04-05-2024 Tobacco smoking status NHISSmokes tobacco daily (finding)[facility] Medical Equipment Procedure CodeEquipment CodeEquipment Original TextEquipment IdentifierDates Blood Sugar Diagnostic stripStart: 76-66-2222Kkmha Sugar Diagnostic stripStart: 04-28-2024 End: 56-36-3348Gegom Sugar Diagnostic stripStart: 32-06-7359Ushps Sugar Diagnostic stripStart: 04-28-2024 End: 58-86-8850Msyze Sugar Diagnostic stripStart: 13-43-5511Jditt Sugar Diagnostic stripStart: 04-28-2024 End: 49-70-7802Hrudo Sugar Diagnostic stripStart: 33-13-7138Uwgjh Sugar Diagnostic stripStart: 04-28-2024 End: 04-28-2024 Clinical Notes 08-16-2024 to 02-01-2025 Note Date & DikbPthxJnqwrfiu70-76-5420 Evaluation note* Diagnosis Onset Date Resolution Status [...] 2:06pmVenous insufficiency (chronic) (peripheral) acuteJuly 2024 2:06pm [facility] Work Phone: 1(173) 903-608107-15-2025 Evaluation note* Diagnosis Onset Date Resolution Status [...] diabetes mellitus with diabetic neuropathyacuteOctober 2024 1:53pm [facility] Work Phone: 1(276) 179-918207-14-2025 NoteMicrobiology PROCEDURE: Blood Culture Charcoal [R1] SOURCE: Blood BODY SITE: Hand L COLLECTED DATE/TIME: 01/24/2025 17:12 EDT RECEIVED DATE/TIME: 01/24/2025 17:31 EDT START DATE/TIME: 01/24/2025 17:31 EDT FREE TEXT SOURCE: Timur MARCELO DO, Ghassan Ding III, DO, Ghassan Zepeda FINAL REPORTS Final Report [] Verified Date/Time: 01/31/2025 18:00 EDT No growth at 7 days. Performing Locations R1: This test was performed at: [facility], [address] [place] [address], [address] [place] [address], KqlhilDunlap Memorial HospitalComment on above:Performed By: #### [id number] #### [facility] [address] [place] [address] [id number] NoteMicrobiology PROCEDURE: Blood Culture Charcoal [R1] SOURCE: Blood BODY SITE: Arm R COLLECTED DATE/TIME: 01/24/2025 17:07 EDT RECEIVED DATE/TIME: 01/24/2025 17:31 EDT START DATE/TIME: 01/24/2025 17:31 EDT FREE TEXT SOURCE: Timur MARCELO DO, Ghassan Ding III, DO, Ghassan Zepeda FINAL REPORTS Final Report [] Verified Date/Time: 01/31/2025 18:00 EDT No growth at 7 days. Performing Locations R1: This test was performed at: [facility], [address] [place] [address], [address]- , , CnrxqnDunlap Memorial HospitalComment on above:Performed By: #### [id number] #### [facility] [address] [place] [address] [phone] NotePatient Education - Text Atrial Fibrillation Atrial [...] of the heart. ??? An ambulatory cardiac technician to record your heart's activity for [...] warning signs of a (more content not included)...[facility]07-09-2025 NoteDischarge Summary Admission and Discharge Information [...] dependent type 2 diabetes mellitus, 01/24/2025 senior living (current) use of insulin, 01/24/2025 Medical problem [...] control regimen. Patient wasinsistent on trying an dtek-txc-jurniqm supplement that he stated would cure diabetes [...] his wounds and recommended continued follow-up with [facility] where he receives care. Patient successfully passed a voiding trial and was voiding easily after removalof [place]. Creatinine had improved from 1.4-0.8 on discharge. Medically stable for discharge home on 01/26/2025. Follow-up PCP in 7 to 10 days Continued care at [facility] wound [facility] Referral sent to Dr. Dugan in [place] for endocrinology follow-up for better glucose control. [...] Completed -- 01/24/25 20:11:27 EDT Consult to Electronics Technology Instructor (Electronics Technology Instructor Consult) - Ordered -- 01/24/25 20:22:00 EDT, [...] equal & normal b (more content not included)...[facility] HospitalComment on above:Result Comment: Electronically Signed By: Ghassan Ding III, DO.marco\Date and Time Signed: 01/26/25 16:13 [id number] NotePatient Education - Text Atrial Fibrillation Atrial [...] of the heart. ??? An ambulatory cardiac technician to record your heart's activity for [...] warning signs of a (more content not included)...[facility]07-09-2025 NoteProgress Note - Pharmacy Pharmacy to [...] Plan; TBD Please contact Pharmacy at ext. [phone] if there are any questions.[facility]07-08-2025 NoteInterdisciplinary Note - OT Pt is seen for OT evaluation. AMPAC score: 16/24. Pt is agreeable only to sitting EOB, no further transfers or mobility and becomes very agitated due to BLE pain. Pt is below functional baseline for ADL performance. OT to follow for treatment. Recommending HH vs SNF at this time pending progress with treatment. [facility]07-08-2025 NoteProgress Note-Physician Assessment/Plan 01/25 - WBC [...] Orders Initial Hospital Care/Day Moderate 55 Minutes 27515 Sbsq Hospital Care/Day Moderate 35 Minutes 17630 2. Cellulitis of leg (L03.119: Cellulitis of [...] Monitoring on telemetry. Patient noncompliant with anticoagulation. ONW5ID3-ZTOi score is 4. Reports that Eliquis dose [...] despite clear documentation from previous admission in [place] in August 2024. Reports that he stopped taking all of his diabetes medications. 8. Insulin dependent type 2 diabetes mellitus (E11.9: Type 2 diabetes mellitus without complications) A1c: 12.6 BGT ACHS with sliding scale insulin as needed Lantus 30 units nightly at home. Patient noncompliant. Tolerated 20units QHS 01/24, uptitrate to 30 units today. Goal glucose will be less than 180. 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 Tobacco use / SNOMED CT 4179640191 / Confirmed, Active Problems (2) Smoker Tobacco [...] an outpatient with the wound center in [place].[facility] HospitalComment on above:Result Comment: Electronically Signed By: Sina Mckeon DPM.marco\Date and Time Signed: 01/25/25 12:56 [id number] NoteInterdisciplinary Note - PT PT Evaluation done this date. Pt. with on AM-PAC this date. He requires supervision to CGAx1 with all activity. Uses w/c and FWW at baseline. Recommend home with home health PT.[facility]07-08-2025 NoteProgress Note - Pharmacy Pharmacy to [...] Plan; TBD Please contact Pharmacy at ext. [phone] if there are any questions.[facility]07-07-2025 NoteHistory and Physical Basic Information Admit [...] would be 75 kg. Given 2 L. [place] sepsis bolus will be 2.25 L, ever, [...] specifically. He follows with Dr. 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 He denies ever seeing vascular surgery. He follows with [facility] wound [facility]. Stated that he has not [...] Normal alignment. Ext (more content not included)...[facility]Comment on above: Result Comment: Electronically Signed By: Ghassan Ding III, DO.marco\Date and Time Signed: 01/24/25 20:28 [id number] NoteED Patient Education Note Cardiovascular Bleeding Varicose [...] at home: Medicines ??? Take and use xutu-jem-gendjic and prescription medicines and creams only as [...] around your limbs and wais (morecontent not included)...[facility] 01-24-2025 NoteProgress Note-Nurse tourniquerts removed by [facility]07-07-2025 NoteProgress Note - Pharmacy Pharmacy to Dose [...] Plan; TBD Please contact Pharmacy at ext. [phone] if there are any questions. Spoke with Dr. Ding - he is ordering a lovenox bridgeDunlap Memorial Hospital07-07-2025 NoteProgress Note-Nurse derrell stopped after 4 minutes for blood cultures that are new order. puneet informed.[facility]07-07-2025 NoteProgress Note-Nurse pt reportedly wears 5 lpm at [facility]. d8id not say before. no saturating properly on at home [address]04-18-2025 Evaluation note* Diagnosis Onset Date Resolution [...] 10:18am Venous insufficiency (chronic) (peripheral)acuteApril 2024 10:18am [facility] Work Phone: 1(395) 835-920802-20-2025 NoteUnUniversity Hospitals [facility] 09-09-2024 NoteUnUniversity Hospitals Lake West Medical Center02-19-2025 NoteK[facility]02-19-2025 NoteK[facility] 09-07-2024 NoteDISCHARGE PLANNING UPDATE Patient now agreeable to SNF placement. Insurance authorization submitted for [facility] in [place]. Awaiting insurance decision.[facility]02-18-2025 NoteUnUniversity Hospitals Lake [facility] Medical Center 09-07-2024 NoteUnUniversity [facility]als [facility]02-18-2025 NoteUnUniversity [facility]als [facility]02-18-2025 NoteUnUniversity [facility] 09-07-2024 NoteUnUniversity [facility]02-18-2025 NoteK[facility]tering [facility]02-17-2025 NoteK[facility] 09-06-2024 NoteK[facility]02-17-2025 NoteK[facility]02-17-2025 NoteUnUniversity [facility]als [facility] 09-05-2024 NoteUnUniversity [facility]02-16-2025 NoteUnUniversity [facility]02-15-2025 NoteUn[facility] 09-04-2024 NoteUnUniversity [facility]02-15-2025 NoteUn[facility]02-14-2025 NoteUn[facility] 09-03-2024 NoteUnUniversity [facility]02-14-2025 NoteUnUniversity [facility]02-13-2025 NoteUnUniversity [facility] 09-02-2024 NoteUnUniversity [facility]als [facility] Center02-13-2025 NoteUnUniversity [facility]als [facility]02-13-2025 NoteUnUniversity Hospitals Lake [facility] Center 09-01-2024 NoteDISCHARGE PLANNING UPDATE [facility] ([place], [place]) is [facility]. Per their admissions team, they are submitting to insurance for authorization today, 09/01.[facility] 09-01-2024 NoteK[facility]tering Health [facility]02-12-2025 NoteK[facility]02-11-2025 NoteK[facility] 08-31-2024 NoteK[facility]tering Health [facility]02-11-2025 NoteK[facility]02-11-2025 NoteK[facility] 08-30-2024 NoteK[facility]02-10-2025 NoteK[facility]02-10-2025 NoteK[facility] 08-30-2024 NoteK[facility]02-09-2025 NoteK[facility]02-08-2025 NoteK[facility] 08-28-2024 NoteK[facility]02-08-2025 NoteK[facility]02-07-2025 NoteK[facility] 08-27-2024 NoteK[facility]02-06-2025 NoteK[facility]02-06-2025 NoteK[facility] 08-26-2024 NoteUnUniversity Hospitals [facility] Center02-06-2025 NoteUnUniversity [facility]02-05-2025 NoteUnUniversity [facility] 08-25-2024 NoteUnUniversity [facility]02-05-2025 NoteUn[facility]02-05-2025 NoteUnUniversity [facility] 08-24-2024 NoteUnUniversity [facility]02-04-2025 NoteUnUniversity [facility]02-04-2025 NoteUnUniversity Hospitals [facility] 08-24-2024 NotePatient is off unit for testing at this time.[facility]02-04-2025 NoteUnUniversity Hospitals [facility] Center02-04-2025 Note [facility]02-04-2025 NoteUnUniversity [facility]02-04-2025 NoteUnUniversity [facility]02-04-2025 Note [facility]02-03-2025 NoteUnUniversity [facility]als [facility]02-03-2025 NoteUnUniversity [facility]als [facility] Center02-02-2025 Note [facility]02-01-2025 NoteK[facility]02-01-2025 NoteK[facility]01-31-2025 Note [facility]01-31-2025 NoteK[facility]01-30-2025 NoteK[facility]01-29-2025 Note [facility]01-28-2025 NoteUnUniversity Hospitals Lake [facility] Center01-28-2025 NoteUnUniversity [facility]als [facility] Center01-27-2025 Note [facility]01-27-2025 NoteUnUniversity [facility]01-27-2025 NoteUnUniversity Hospitals Lake West Medical CenterEvaluation noteNo assessment information availableJoint Township District Memorial Hospital Work Phone: Evaluation note* Diagnosis Onset Date Resolution Status Type 2 diabetes mellitus [facility] Work Phone: Evaluation note* Diagnosis Onset Date Resolution Status COPD (chronic obstructive pulmonary dise ase) acuteHypertensionacuteMRSA cellulitis of right footacuteNicotine dependenceacute Non-complianceacuteOxygen dependentacuteType 2 diabetes mellitusacuteUlcer of right foot due to type 2 diabetes mellitusacute [facility] Work Phone: Evaluation note* Diagnosis Onset Date Resolution Status COPD (chronic obstructive pulmonary dise ase) acuteHypertensionacuteMRSA cellulitis of right footacuteNicotine dependenceacute Non-complianceacuteOxygen dependentacuteType 2 diabetes mellitusacuteUlcer of right foot due to type 2 diabetes mellitusacuteAcute osteomyelitis of footacute [facility] Work Phone: Evaluation note* Diagnosis Onset Date Resolution Status COPD (chronic obstructive pulmonary dise ase) acuteHypertensionacuteMRSA cellulitis of right footacuteNicotine dependenceacute Non-complianceacuteOxygen dependentacuteType 2 diabetes mellitusacuteUlcer of right foot due to type 2 diabetes mellitusacuteAcute osteomyelitis of footacute Low back painacute [facility] Work Phone: Evaluation note* Diagnosis Onset Date Resolution Status Admit Date COPD (chronic obstructive pulmonary dise ase) acuteApril 2024 10:18amHypertensionacuteApril 2024 10:18amMixed hyperlipidemiaacuteApril 2024 10:18amNicotine dependenceacuteApril 2024 10:18amNon-complianceacuteApril 2024 10:18amOxygen dependentacute Bere 2024 10:18amStatus post partial amputation of right footacuteApril 2024 10:18amType 2 diabetes mellitusacuteApril 2024 10:18am [facility] Work Phone: Reason for referral (narrative)No reason for referral information availableMagruder Memorial Hospital Work Phone: Summary Purpose Family History No Family History Records Found Relationship Condition Age at Onset Recorded Date/T mecca mother Malignant neoplasm of cervix Unknown Advance Directives No Advanced Directives Records Found Advance Directive Response Recorded Date/ Time Advance Directives No March 2:40pm Chief Complaint and Reason for Visit Chief Complaint Admit [place] [facility] [place] [...] Amb Documentation January 27, 2025 8:33 am [facility] [place], [...] 2025 2:06pm Chief Complaint Admit Date F/U shelter stay/Medications-HIGH R ISK November 05, 2024 10:18am Amb Documentation January 27, 2025 8:33 [place] [facility] [place] 01, [...] section and content) DATE CREATED AUTHOR 07/19/2022 [facility] DATE CREATED AUTHOR AUTHOR'S ORGANIZ ATION 10/20/2024 [facility] DATE CREATED AUTHOR AUTHOR'S ORGANIZ ATION 01/28/2025 [facility] DATE CREATED AUTHOR AUTHOR'S ORGANIZ ATION 01/29/2025 [facility] DATE CREATED AUTHOR AUTHOR'S ORGANIZ ATION 01/30/2025 [facility] DATE CREATED AUTHOR AUTHOR'S ORGANIZ ATION 02/04/2025 [facility] DATE CREATED AUTHOR AUTHOR'S ORGANIZ ATION 04/01/2025 [facility] DATE CREATED AUTHOR AUTHOR'S ORGANIZ ATION 04/13/2025 [facility] DATE CREATED AUTHOR AUTHOR'S ORGANIZ ATION 05/13/2025 [facility] Care Teams (unrecognized sec tion and content) Team Status: Active Member Role Status Dates Magnolia Chavez LPN Attending Provider Active St art: January 26, 2024 Team Status: Inactive Member Role Status Dates Rc Curtis DPM MS Attending Provider Active Start: March 29, 2024 End: March 29, 2024 Team Status: Active Member Role Status Dates Dara Eisenberg APRN AIRPLANE TESTER-C Primary Care Provider Active Team Status: Inactive Member Role Status Dates Dara Eisenberg APRN AIRPLANE TESTER-C Primary Care Provider, Attending Provider Active Start: April 05, 2024 End: April 05, 2024 Team Status: Active Member Role Status Dates Dara Eisenberg APRN AIRPLANE TESTER-C Primary Care Provider, Attending Provider Active Start: April 08, 2024 Team Status: Inactive Member Role Status Dates Dara Eisenberg APRN AIRPLANE TESTER-C Primary Care Provider Active Start: March 212023 End: April 08william Curtis DPM MSAttending ProviderActive Start: April 08, 2024 End: April 08, 2024 Team Status: Inactive Member Role Status Dates Dara Eisenberg APRN AIRPLANE TESTER-C Primary Care Provider Active Start: March 222023 End: April 12, 2024Tanya Arenas ProviderActiveStart: April 12, 2024 End: April 12, 2024 Team Status: Inactive Member Role Status Dates Dara Eisenberg APRN AIRPLANE TESTER-C Primary Care Provider, Attending Provider Active Start: May 03, 2024 End: May 03, 2024 Team Status: Active Member Role Status Dates Dara Eisenberg APRN AIRPLANE TESTER-C Primary Care Provider Active Start: July Shaikh Mono MDAttending ProviderActiveStart: August 14, 2024 Team Status: Active Member Role Status Dates Dara Eisenberg APRN AIRPLANE TESTER-C Primary Care Provider Active Start: July Silveriotanner Villareal MDAttending ProviderActiveStart: August 15, 2024 Team Status: Inactive Member Role Status Dates Dara Eisenberg APRN AIRPLANE TESTER-C Primary Care Provider, Attending Provider Active Start: November 05, 2024 End: November 05, 2024 Team Status: Inactive Member Role Status Dates Dara Eisenberg APRN AIRPLANE TESTER-C Primary Care Provider Active Start: November 05, 2024 End: November 05, 2024Dara Eisenberg APRN AIRPLANE TESTER-CAttending ProviderActive Start: November 05, 2024 End: November 05, 2024 Team Status: Active Member Role Status Dates Dara Eisenberg APRN AIRPLANE TESTER-C Primary Care Provider Active Start: January 27, 2025 Angelic Blevins CMAAttending ProviderActiveStart: January 27, 2025 Team Status: Inactive Member Role Status Dates Dara Eisenberg APRN AIRPLANE TESTER-C Primary Care Provider Active Start: February 01, 2025 End: February 01, 2025Dara Eisenberg APRN AIRPLANE TESTER-CAttending ProviderActive Start: February 01, 2025 End: February 01, 2025 Team Status: Active Member Role Status Dates Dara Eisenberg APRN AIRPLANE TESTER-C Primary Care Provider Active Start: March 212024 Coco Starr MDAttending ProviderActiveStart: April 05, 2025 Team Status: Inactive Member Role Status Dates Coco Starr MD Attending Provider Active Sta rt: April 05, 2025 End: April 05, 2025 Team Status: Active Member Role Status Dates Dara Eisenberg APRN AIRPLANE TESTER-C Primary Care Provider Active Start: March 212024 [...] Member Role Status Dates Dara Eisenberg APRN AIRPLANE TESTER-C Primary Care Provider Active Start: March 222024 Angelic Blevins CMAAttending ProviderActiveStart: April 13, 2025 Team Status: Inactive Member Role Status Dates Dara Eisenberg APRN AIRPLANE TESTER-C Primary Care Provider Active Start: April 28, 2025 End: April 28, 2025Dara Eisenberg APRN AIRPLANE TESTER-CAttending ProviderActive Start: April 28, 2025 End: April [...] BE BASED ON THE PRIMARY CLINICAL RECORDS. [facility] [employer] provides no warranty or guarantee of the accuracy or completeness of information in this document.
[2025-05-16 14:40] LABS: Hematocrit 37.2 % (42.0-54.0); Hemoglobin 11.6 g/dL (14.0-18.0); Mean Corpuscular HGB Conc 31.2 g/dL (29.9-35.2); Mean Corpuscular Hemoglobin 29.1 pg (25.9-34.0); Mean Corpuscular Volume 93.2 fL (80.0-94.0); Platelet Count 489 10^3/uL (150-450); Red Blood Count 3.99 10^6/uL (4.70-6.10); White Blood Count 18.1 10^3/uL (4.0-11.0)
[2025-05-16 14:50] LABS: Alanine Aminotransferase 19 U/L (16-63); Albumin Globulin Ratio 0.3; Albumin Level 1.7 g/dL (3.4-5.0); Alkaline Phosphatase 137 U/L (46-116); Anion Gap 9.6; Aspartate Amino Transferase 22 U/L (15-37); Blood Urea Nitrogen 12.0 mg/dL (7.0-18.0); Calcium 10.1 mg/dL (8.5-10.1); Carbon Dioxide 35.5 mmol/L (21.0-32.0); Chloride 91 mmol/L (98-107); Estimated GFR (African America >60 (>=60 mL/min/1.73m^2); Estimated GFR (Non-African Ame >60 (>=60 mL/min/1.73m^2); Globulin 6.3 g/dL; Glucose 423 mg/dL (74-106); Lactate/Lactic Acid 0.9 mmol/L (0.4-2.0); Potassium 4.1 mmol/L (3.5-5.1); Sodium 132 mmol/L (136-145); Total Protein 8.0 g/dL (6.4-8.2)
[2025-05-16 14:52] LABS: INR 1.05; Prothrombin Time 11.1 sec (9.0-11.6)
[2025-05-16 14:56] LABS: NT Pro B Type Natriuretic Pept 445.0 pg/mL (<=900.0)
--- OUTSIDE RECORDS SUMMARY | 2025-05-16 14:56 | XMS_ITS | Clinical Summary ---
Author Organization [facility] Address [address] [place] [address] Care Team Providers Care Finishing Powder Press Operator Name Role Phone Dara Eisenberg NP Primary Care Provider [phone] Allergies No known active allergies Medications MedicationSigDispense [...] Active Problems ProblemNoted DateDiagnosed DateAcute hypoxic respiratory zyspjke9808/15/2024 Social History Tobacco UseTypesPacks/DayYears UsedDateSmoking Tobacco: Every DayCigarettes Smokeless Tobacco: Never Tobacco Cessation:Ready to Q uit: Not Asked; Counseling Given: Not Answered [facility] UtilitiesAnswerDate RecordedIn the past 12 months has the [employer], gas, oil, or water Spyra threatened to shut off services in your home?Patient unable to fteybf8908/15/2024Humiliation, Afraid, Rape, and Kick questionnaire AnswerDate RecordedWithin the last year, have you been afraid of your partner or ex-partner?Patient unable to lpbuek3908/15/2024Emotionally AbusedNot on file 08/15/2024Physically AbusedNot on file08/15/2024Sexually AbusedNot on file 08/15/2024Overall Financial Resource Strain (CARDIA)AnswerDate RecordedHow hard is it for you to pay for the very basics like food, housing, medical care, and heating?Patient unable to qcszas4908/15/2024TransportationAnswerDate RecordedIn the past 12 months, has lack of transportation kept you from medical appointments or from getting medications?Patient unable to hvuwje3108/15/2024Lack of Transportation (Non-Medical)Not on file08/15/2024Housing Stability Vital Sign AnswerDate RecordedIn the last 12 months, was there a time when you were not able to pay the mortgage or rent on time?Patient unable to xtyzeg5108/15/2024 Number of Times Moved in the Last YearNot on file08/15/2024t any time in the past 12 months, were you homeless or living in a care home (including now)?Patient unable to nruijp2808/15/2024Hunger Vital SignAnswerDate RecordedWithin the past 12 months, you worried that your food would run out before you got the money to buy more.Patient unable to mhjhxz2408/15/2024Ran Out of Food in the Last YearNot on file08/15/2024Sex and Gender InformationValueDate RecordedSex Assigned at Male08/17/2024 2:16 PM ESTLegal BodYiue9108/14/2024 12:13 PM ESTGender Identity Male08/17/2024 2:16 PM ESTSexual OrientationNot on file Last Filed Vital Signs Vital SignReadingTime TakenCommentsBlood Fioknzpr490/98009/09/2024 8:00 AM EST Xzxxp909109/09/2024 8:33 AM WMYAqbpyfcbfrg55.3 ??C (97.4 ??F)09/09/2024 4:15 AM ESTRespiratory Cykf011109/09/2024 4:15 AM ESTOxygen Brxexbpacq35%09/09/2024 8:00 AM ESTInhaled Oxygen Concentration--Btrtmb200 kg (284 lb 13.4 oz)09/09/2024 3:34 AM QICXbtcmc510.3 cm (5' 10.98 )08/28/2024 8:00 AM ESTBody Mass Index39.74 08/28/2024 8:00 AM EST Plan of Treatment Health MaintenanceDue DateLast DoneCommentsCT Wguoeekxjzqs66/14/1959Colonoscopy 1960Colorectal Cancer Hlimvucjy07/14/1959FIT-DNA1958FIT1958 FOBT1958Medicare Annual Wellness (AWV)1960 6324Isvccnuxgbnbw41/14/1959 Diabetes: Retinopathy Dvwfybuig56/14/1969Depression Sapyyajvx69/14/1971Diabetes: Urine Protein Yokjkjamm08/14/1978Pneumococcal Vaccine: 50+ Years (1 of 2 - PCV) 1977Adult Ysdoptc8412/01/1980Zoster Vaccines (1 of 2)2008Diabetes: Hemoglobin A1C501/OVID-19 Vaccine ( season) , 10/27/2020, 10/01/2020Influenza Vaccine (#1)2025 06/23/2022Fall Risk Pjynpwnrp66/20/18301409/09/2024HIB VaccinesAged OutNo longer eligible based on patient's [...] complete this topic Procedures Procedure NamePriorityDate/TimeAssociated DiagnosisCommentsHEMOGLOBIN S0SInx-Rf 08/15/2024 2:04 PM EST from Last 3 Months or Most Recently Relevant to Health Maintenance Results * (ABNORMAL) Hemoglobin A1c (08/15/2024 2:04 PM EST)ComponentValueRef RangeTest MethodAnalysis TimePerformed AtPathologist SignatureHemoglobin A1C8.2(H)4.0 - 6.0 %08/16/2024 12:30 PM [facility])Estimated Average Ixcnhul074xq/dL08/16/2024 12:30 PM [facility])Specimen (Source)Anatomical Location / LateralityCollection Method / VolumeCollection TimeReceived TimeBloodVenous blood specimen / UnknownArterial Line / Unknown 08/15/2024 2:04 PM EST08/15/2024 2:30 PM EST Narrative Authorizing ProviderResult TypeResult StatusMohamed Kacy OLIVEROS BLOOD ORDERABLESFinal ResultPerforming OrganizationAddressCity/State/ZIP CodePhone Number [facility] [address] [place] [address] from Last 3 Months or Most Recently Relevant to Health Maintenance Additional Health Concerns InfectionOnset DateLast MnscljskuKFLK04/29/202502/07/2024 Insurance Advance Directives * Full Code (Latest Code Status on File) Date ActivatedDate InactivatedComments08/15/2024 12:24 PM2 2:30 PM Care Teams Team MemberRelationshipSpecialtyStart DateEnd Date Dara Eisenberg NP [address] [place] [address] PCP - GeneralFamily Medicine07/21/24
--- OUTSIDE RECORDS SUMMARY | 2025-05-16 14:56 | XMS_ITS | Clinical Summary ---
Author Organization [facility] Address [address] [place] [address] Care Team Providers Care Embroidery Cutter Name Role Phone Dara Eisenberg NP Primary Care Provider Social History Tobacco UseTypesPacks/DayYears UsedDateSmoking Tobacco: Never AssessedSex and Gender InformationValueDate RecordedSex Assigned at BirthNot on fileLegal Sex Male10/02/2022 7:20 PM EDTGender IdentityNot on fileSexual OrientationNot on file Plan of Treatment Not on file Insurance Care Teams Team MemberRelationshipSpecialtyStart DateEnd Date Dara Eisenberg NP [address] [facility] [address] [place], [place] [id number] PCP - GeneralFamily Medicine11/11/24
--- OUTSIDE RECORDS SUMMARY | 2025-05-16 14:56 | XMS_ITS | Clinical Summary ---
Author Organization [facility] Address [address] [place] [address] Care Team Providers Care Radio Director Name Role Phone Unavailable Primary Care Provider Unavailabl e Social History Tobacco UseTypesPacks/DayYears UsedDateSmoking Tobacco: Never AssessedSex and Gender InformationValueDate RecordedSex Assigned at BirthNot on fileLegal Sex Male09/02/2024 10:12 AM ESTGender IdentityNot on fileSexual OrientationNot on file Plan of Treatment Health MaintenanceDue DateLast DoneCommentsCT Ikcyjtmgkegv05/14/1959Colonoscopy 1958Colorectal Cancer Avvajjbfz31/14/1959FIT-DNA (Cologuard)1958FIT 1958FOBT1958 3395Ipmwubbvfudel44/14/1959nnual Visit Topic12/02/1959MMR Vaccines (1 of 1 - Standard series)12/02/1959Hepatitis C Whtokycsn32/14/1977 DTaP/Tdap/Td Vaccines (1 - Tdap)1977Pneumococcal Vaccine: 65+ [...]
--- OUTSIDE RECORDS SUMMARY | 2025-05-16 14:56 | XMS_ITS | Clinical Summary ---
Author Organization [facility] Address [address] [place] [address] Care Team Providers Care Instrument Repair Technician Name Role Phone No, Physician Primary Care [...] InformationValueDate RecordedSex Assigned at BirthNot on fileLegal OptDoyt4710/04/2016 4:56 PM EDTGender IdentityNot on fileSexual OrientationNot on file Last Filed Vital Signs Vital SignReadingTime TakenCommentsBlood Mjxhdits302/8710/04/2016 8:09 PM EDT Afnmi8940/17/2017 8:09 PM RAPSzglujzwlrr64.4 ??C (97.6 ??F)10/04/2016 4:58 PM EDTRespiratory Uulb820410/04/2016 8:09 PM EDTOxygen Jweiqlqxdl20%10/04/2016 8:09 PM EDTInhaled Oxygen Concentration--Veyxgh974.5 kg (312 lb)10/04/2016 4:58 PM VTGUccksb832.4 cm (6' 1 )10/04/2016 4:58 PM EDTBody Mass Index41.16010/04/2016 4:58 PM EDT Plan of Treatment Health MaintenanceDue DateLast DoneCommentsCT Aauuthcudtis45/14/1959Colonoscopy 1958Colorectal Cancer Screening/Utjnwhhokl71/14/1959Fecal DNA1958 Fecal occult blood test (FOBT,FIT)1958PSA Level1958MMR Vaccines (1 of 1 - Standard series)12/02/1959Wellness Visit2Depression Screening/Follow-Up (PHQ-2/9)1970Hepatitis C Pspmcfeuq27/14/1977 Tetanus/Diphtheria/Pertussis (1 - Tdap)1977Pneumococcal Vaccine: 50+ Years (1 of 1 - PCV)2008Zoster Vaccines (1 of 2)2008Falls Risk Assessment 4COVID-19 Vaccine (1 - 2023- season)2025Influenza Vaccine (#1) 2025RSV Vaccines (1 - 1-dose 75+ series)2033HIB VaccinesAged OutNo longer eligible based on patient's age to complete this topicHPV VaccinesAged OutNo longer eligible based on patient's age to complete this topicHepatitis A VaccinesAged OutNo longer eligible based on patient's age to complete this topic Hepatitis B VaccinesAged OutNo longer eligible based on patient's age to complete this topicIPV VaccinesAged OutNo longer eligible based on patient's age to complete this topicMeningococcal ACWY VaccineAged OutNo longer eligible based on patient's age to complete this topicMeningococcal B VaccineAged OutNo longer eligible based on patient's age to complete this topicRotavirus VaccinesAged Out No longer eligible based on patient's age to complete this topic Care Teams Team MemberRelationshipSpecialtyStart DateEnd Date No, Physician [facility] PCP - General10/04/16
--- OUTSIDE RECORDS SUMMARY | 2025-05-16 14:56 | XMS_ITS | Clinical Summary ---
Author Organization [facility] Address [facility] [address] [id number] Care Team Providers Care Transportation Solutions Manager Name Role Phone Unavailable Primary Care Provider Unavailabl e Social History Tobacco UseTypesPacks/DayYears UsedDateSmoking Tobacco: Never AssessedChildcare AnswerDate ShxfuakmHuablepeoJmkkxau37/12/2019EmploymentAnswerDate Recorded HtzgzpdmmaKoydypm78/12/2019Sex and Gender InformationValueDate RecordedSex Assigned at BirthNot on fileLegal WtdTeho4102/23/2015 11:51 AM EDTGender Identity Not on fileSexual OrientationNot on file Plan of Treatment Health MaintenanceDue DateLast DoneCommentsDepression Rfyhvovak80/14/1971Tobacco Phwpxqppa71/14/1971Adult BMI Mfdfeyctb51/14/1977DTaP,Tdap and Td Vaccines (1 - Tdap)1977Zoster (Shingles) Vaccine (1 of 2)2008Fall Risk Screening 4COVID-19 Vaccine ( season)/04/2022, 10/27/2020, 10/01/2020Influenza Ooftqzx39 Medical Devices Not on file
--- OUTSIDE RECORDS SUMMARY | 2025-05-16 14:56 | XMS_ITS | Patient Health Record ---
Author Organization [facility] [place] Address [address] [place] [address] Care Team Providers Care Apron Cleaner Name Role Phone Dara Eisenberg CNP Primary Care Provider U navailable Results Component Value Reference Range Notes Anaerobic Culture (Not yet r eviewed by provider) Interpretation: Performing Lab: Notes/Report: LEFT LOWER LEG WOUND [facility] , Anaerobic Culture See Below For Report Anaerobic Culture Anaerobic CultureNo [...] Clindamycin Clindamycin S F Aerobic CulturePerformed at: CB - [facility] Mandi Aerobic Culture Organism: Staphylococcus aureus : O:MRSA [...] S F Clindamycin Clindamycin S F Aerobic [address] [place] [phone] Aerobic Culture Organism: Staphylococcus aureus : O:MRSA [...] Aerobic CultureLab Director: Tyron Saeed PhD, Phone: [phone] Aerobic Culture Organism: Staphylococcus aureus : O:MRSA Isolated O:[facility] Isolated Organism: 2.1 Antibiotic Interpretation [...] LC - [facility] LB SEE REPORT - Quad Stayer Id information not found for OBX-specific hemstitcher legend Aerobic Culture (Not yet reviewed by provider) Interpretation: [...] Antibiotic Interpretation CHEN Status Aerobic CulturePerformed at: [facility] Aerobic Culture Organism: Staphylococcus aureus : O:MRSA Isolated O:STAAUR Isolated Organism: 1.1 Antibiotic Interpretation CHEN Status Aerobic [address] [place], [place] [id number] Aerobic Culture Organism: Staphylococcus aureus : O:MRSA Isolated O:STAAUR Isolated Organism: 1.1 Antibiotic Interpretation CHEN Status Aerobic CultureLab Director: Tyron Saeed PhD, Phone: [phone] Aerobic Culture Organism: Staphylococcus aureus : O:MRSA [...] LC - [facility] LB SEE REPORT - Quad Stayer Id information not found for OBX-specific hemstitcher legend Reason For Referral No Information Medications [...] due to ty pe 2 diabetes mellitus (1842859786454) Type 2 diabetes mellitus with foot ulcer (E11.621) ActiveconfirmedProblemChronic ulcer of lower extremity (73815117)Non-pressure chronic ulcer of other part of right lower leg limited to breakdown of skin (L97.811)ActiveconfirmedProblemChronic non-pressure ulcer of calf extending to fat level (72427818295869580)Non-pressure chronic ulcer of other part of right lower leg with fat layer exposed (L97.812)ActiveconfirmedProblemNon-pressure chronic ulcer of other part of left lower leg with fat layer exposed (L97.822) ActiveconfirmedProblemAcute exacerbation of chronic obstructive airways disease (559517571)COPD exacerbation (J44.1)ActiveconfirmedProblemChronic ulcer of foot (740361485)Non-pressure chronic ulcer of left heel and midfoot with fat layer exposed (L97.422)ActiveconfirmedProblem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 with ulcer (I87.313)ActiveconfirmedProblemUlcer of left lower leg (disorder) (88864085535308418)Leg ulcer, left, limited to breakdown of skin (L97.921)ActiveconfirmedProblemAcute osteomyelitis of ankle and/or foot (297223621)Acute osteomyelitis of right ankle or foot (M86.171)Activeconfirmed ProblemNon-pressure chronic ulcer of other part of left lower leg with other specified severity (L97.828)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)ActiveconfirmedProblemChronic ulcer of right heel with fat layer exposed (L97.412)ActiveconfirmedProblemDelayed surgical wound healing of toe amputation stump (T87.89)ActiveconfirmedProblemDiabetes mellitus (29305485)Diabetes mellitus (E11.9)ActiveconfirmedProblemPolyneuropathy due to type 2 diabetes mellitus (356402531)Controlled type 2 diabetes mellitus with diabetic polyneuropathy, unspecified whether termite control service representative insulin use (E11.42) ActiveconfirmedProblemPolyneuropathy due to type 2 diabetes mellitus (723532157) 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)Activeconfirmed Plan Of Treatment [...] Insured Coverage Start Date Coverage End Date [facility] [address] [address] [address] [place], [place] [id number] Vito Mckinney - patient is the insured
[2025-05-16] MEDS: MORPHINE SULFATE 4 MG/ML VIAL IV (15:02)
[2025-05-16] MEDS: PIPERACILLIN SODIUM/TAZOBACTAM 4.5 GM in 0.9 % SODIUM CHLORIDE 50 ML IV (15:02)
[2025-05-16 15:16] LABS: Band Neutrophils Absolute 0.4 10^3/uL (0.0-0.3); Basophils Abs Manual 0.00 10^3/uL (0.00-0.10); Basophils Percent Manual 0.0 % (0.2-2.0); Eosinophils Absolute Manual 0.00 10^3/uL (0.00-0.70); Eosinophils Percent Manual 0.0 % (0.9-7.0); Lymphocytes Absolute Manual 1.62 10^3/uL (1.20-3.80); Lymphocytes Percent Manual 9.0 % (20.5-60.0); Monocytes Absolute Manual 0.72 10^3/uL (0.30-0.80); Monocytes Percent Manual 4.0 % (1.7-12.0); Segmented Neut Absolute Manual 15.38 10^3/uL (1.4-6.5); Segmented Neutrophils % Manual 85.0 (43.0-75.0)
--- NOTE | 2025-05-16 15:20 | PC.NURSE ---
While in the room repositioning patient this nurse noticed that patients right elbow is large in size, red, and very warm to touch There is a small area that appears to be pus filled at the point of the elbow Pt states he fell 1 week ago and has had pain that elbow since This was reported to CRSITY Schaefer who is caring for patient Wound care nurse at bedside at this time to unwrap patients leg
--- NOTE | 2025-05-16 15:21 | XR_ITS ---
The [address] [address] Patient Name: TYLER SMITH MRN: [id number] date: 1960 Sex: M Assigned Patient Location: ER Current Patient Location: ED.MAIN Accession/Order Number: [id number] Exam Date: 05/16/2025 16:10 Report Date: 05/16/2025 17:22 At the request of: HEATHER SHARMA Procedure: XR elbow RT min 3V 3 views of the right elbow INDICATION: Infection, injury FINDINGS: There is moderate diffuse soft tissue swelling. Suspected bursal collection overlying the olecranon. No definite acute osseous abnormality identified. Minor degenerative changes. XR/XR elbow RT min 3V IMPRESSION: Diffuse soft tissue swelling with suspected bursal fluid collection along the olecranon. No definite acute osseous abnormality. Impression dictated by: Anthony Watts M.D. 05/16/2025 5:22 PM Dictation Location: [place] [address] Electronically authenticated by: [id number] Y Date: 05/16/2025 17:22
--- NOTE | 2025-05-16 15:33 | XR_ITS ---
The [address] [address] Patient Name: TYLER SMITH MRN: [id number] date: 1960 Sex: M Assigned Patient Location: ER Current Patient Location: ED.MAIN Accession/Order Number: [id number] Exam Date: 05/16/2025 16:10 Report Date: 05/16/2025 17:17 At the request of: HEATHER SHARMA Procedure: XR foot RT min 3V RIGHT FOOT - 3 views CLINICAL HISTORY: infection COMPARISON: 04/05/2025 FINDINGS: Prior forefoot/midfoot amputation. Osteomyelitis findings involving the lateral aspect midfoot bones: Notably third fourth and fifth base of the metatarsals and their respective cuneiforms. There may be subtle extension into the anterior neck of the calcaneus. There are diffuse soft tissue swelling. No soft tissue gas. XR/XR foot RT min 3V IMPRESSION: POSTSURGICAL CHANGES STATUS POST AMPUTATION WITH FINDINGS WORRISOME FOR PROGRESSIVE OSTEOMYELITIS INVOLVING THE LATERAL RESIDUAL MIDFOOT FOOT Impression dictated by: Anthony Watts M.D. 05/16/2025 5:17 PM Dictation Location: [place] [address] Electronically authenticated by: [id number] Y Date: 05/16/2025 17:17
--- NOTE | 2025-05-16 15:51 | PC.NURSE ---
Wound care nurse states patient is rewrapped and bandaged
[2025-05-16] MEDS: VANCOMYCIN HCL 1,500 MG in 0.9 % SODIUM CHLORIDE 500 ML 250 MG IV (16:38)
[2025-05-16] MEDS: FUROSEMIDE 40 MG/4 ML VIAL IVP (16:39)
--- NOTE | 2025-05-16 16:54 | PC.NURSE ---
CRISTY Schaefer was able to drain >45cc of pus like fluid from patients right elbow Pt states he feels relief and is more comfortable at this time
--- NOTE | 2025-05-16 17:19 | ECG_ITS ---
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 Measurements Intervals [place] Rate: 155 P: -06309 MD: -[id number] QRS: 41 QRSD: 86 T: 203 QT: 262 QTc: 349 Interpretive Statements 90715 Atrial fibrillation with rapid ventricular response [address] depression, probably digitalis effect 81793 Twave abnormality, possible inferior ischemia or digitalis effect 9150 abnormal ECG Compared to ECG 05/16/2025 13:49:37 Possible ischemia now present Sinus tachycardia no longer present Indeterminate axis no longer present ST (T wave) deviation still present Electronically Signed On 05-16-2025 18:07:33 EDT by DONALD KATZ M.D.
[2025-05-16] MEDS: DILTIAZEM HCL 25 MG/5 ML VIAL 10 MG IV ×2 (18:00→19:37)
[2025-05-16] MEDS: METHYLPREDNISOLONE SOD SUCC PF 125 MG/2 ML VIAL IVP (18:29)
[2025-05-16 18:41] LABS: BOX Test Date Sent 10/27/25; BOX Test Reference Lab Firelands; BOX Test Sent Out Synovial Fluid
[2025-05-16] MEDS: MORPHINE SULFATE 2 MG/ML SYRINGE IV (20:48)
--- NOTE | 2025-05-16 20:50 | PC.NURSE ---
Patient repeatedly took off cardiac leads as well as pulse ox and BP cuff despite numerous reminders of the importance of this Pt also would not keep a gown on or blankets, and his shorts were half off Bed bugs seen throughout his visit Pt informed that he would be transferred to [facility] to further his care due to the severity of his illness Pt was not in agreeance with this plan and refused to sign the transfer form This nurse returned to patients room with HARVEST SUPERVISOR Olive Pt still refused, though we explained the risks of going home AMA From the assesment performed by this nurse I do not believe patient is able to care for himself at home This nurse contacted supervisor feed house, then Ileana Adler RN, who escalated the matter up with administration the David Hernandez agreed patient needed to be transferred though he is of sound mind and cannot be forced We once again explained risks and benefits to patient and he agreed to sign transfer form Moments after this [facility] arrived to transport patient to [facility] Patient willingly assisted with movement of himself and belongings from ER bed to stretcher Report had been given to transporting crew Attempted to call report to [facility] - no answer will try again Care transferred to [facility]
[2025-05-17 02:10] LABS: A. calcoaceticus-baumannii Cpx NOT DETECTED (NOT DETECTE); Bacteroides fragilis NOT DETECTED (NOT DETECTE); Candida auris NOT DETECTED (NOT DETECTE); Candida glabrata NOT DETECTED (NOT DETECTE); Enterobacterales NOT DETECTED (NOT DETECTE); Enterococcus faecalis NOT DETECTED (NOT DETECTE); Enterococcus faecium NOT DETECTED (NOT DETECTE); Klebsiella aerogenes NOT DETECTED (NOT DETECTE); Klebsiella pneumoniae group NOT DETECTED (NOT DETECTE); Proteus spp. NOT DETECTED (NOT DETECTE); Salmonella spp. NOT DETECTED (NOT DETECTE); Serratia marcescens NOT DETECTED (NOT DETECTE); Source BLOOD; Staphylococcus epidermidis NOT DETECTED (NOT DETECTE); Staphylococcus lugdunensis NOT DETECTED (NOT DETECTE); Stenotrophomonas maltophilia NOT DETECTED (NOT DETECTE); Streptococcus pyogenes NOT DETECTED (NOT DETECTE); Streptococcus spp. NOT DETECTED (NOT DETECTE)
[2025-05-17 04:09] LABS: Staphylococcus spp. DETECTED (NOT DETECTE); mecA/C and MREJ (MRSA) DETECTED (NOT DETECTE)
--- NOTE | 2025-05-17 04:12 | PC.NURSE ---
Addendum entered by Jeannette Van 05/17/25 04:21: Spoke with Cheri, nursing accounts payable supervisor at [facility] to let her know about the positive blood cultures and to let her know that they should be getting the final results once available, after the lab there at [facility] is done with the final processing of the cultures. Original Note: This RN took call from Tana in lab that blood cultures had preliminary positive results for staphylococcus, staphylococcus aurous, MECA-C and MREJ or MRSA. She stated that she is going to be sending this to [facility] lab. This patient was transferred to [facility] from this ED. I will call the nursing accounts payable supervisor to inform her.
[2025-05-18 14:09] LABS: Glucose, Body Fluid 326 mg/dL (.)
[2025-05-18 16:09] LABS: LD, Body Fluid >18000 IU/L (.)
== END 2025-05-16 20:54 | disposition short-term general hospital (02) ==
PROVIDERS: Nurse Practitioner Family; Emergency Provider Emergency Medicine; PCP Nurse Practitioner Family
DX: E11.69 Type 2 diabetes mellitus with other specified complication (principal); M86.171 Other acute osteomyelitis, right ankle and foot; R06.02 Shortness of breath; Z99.81 Dependence on supplemental oxygen; Z89.431 Acquired absence of right foot; F17.200 Nicotine dependence, unspecified, uncomplicated; M00.9 Pyogenic arthritis, unspecified; I50.9 Heart failure, unspecified; I48.91 Unspecified atrial fibrillation; L03.90 Cellulitis, unspecified; J44.9 Chronic obstructive pulmonary disease, unspecified; B87.1 Wound myiasis; Z79.4 Long term (current) use of insulin
CPT/HCPCS: 36415; 71045; 73080; 73630; 80053; 82945; 83605; 83615; 83880; 83986; 84157; 84484; 85007; 85027; 85610; 87040; 87070; 87075; 87150; 89051; 89060; 93005; 96365; 96366; 96367; 96368; 96375; 96376; 99285; J1938; J2270; J2405; J2543; J2919; J3373